=== PATIENT | male | born 1955 | race Caucasian/White ===

== ENCOUNTER 2022-11-14 07:42 | Emergency (ER) | payer MEDICARE, MEDICAID, SELFPAY ==
[2022-11-14 07:47] VITALS: BP 106/72; PULSE 76; RESP 18; TEMP 36.6; O2SAT 97; BMI 27.4
--- NOTE | 2022-11-14 07:49 | CT_ITS ---
The [address] [address] Patient Name: CHIDI TAYLOR MRN: [facility]:[id number] date: 1955 Sex: M Assigned Patient Location: ED.MAIN Current Patient Location: ED.MAIN Accession/Order Number: [id number] Exam Date: 11/14/2022 07:56 Report Date: 11/14/2022 08:22 At the request of: SAIRA CHAVEZ Procedure: CT head/brain wo con EXAM: CT head/brain wo con HISTORY: fall COMPARISON: CT head 07/13/2019. TECHNIQUE: Axial noncontrast CT imaging of the head was performed with coronal and sagittal reformats. FINDINGS: Motion artifact severely degrades evaluation of the skull base. Calvarium/skull base: No evidence of acute fracture or destructive lesion. Mastoids and middle ears demonstrate no substantial mucosal disease. Paranasal sinuses: No air fluid levels. Brain: No acute intracranial hemorrhage. No acute large vascular territory infarct. 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 There is ex vacuo dilatation of the right lateral ventricle with relative paucity of white matter involving the high right hemisphere. Stable morphologic appearance of the brain parenchyma and ventricles compared to 07/13/2019. Extensive eccentric right dural calcifications along the falx and to lesser extent tentorial leaflet. No mass lesion or mass effect. No hydrocephalus. CT/CT head/brain wo con IMPRESSION: No acute large vascular territory infarct or acute intracranial hemorrhage. Electronically authenticated by: MONA MOORE Date: 11/14/2022 08:22
--- NOTE | 2022-11-14 07:50 | ED.HEATRA1 ---
HPI - Head Injury General Chief complaint: Head Injury Stated complaint: FALL Time Seen by Provider: 11/14/22 07:45 History of Present Illness HPI Narrative: 67-year-old male presents from prison for laceration above his left eye. He was in a wheelchair and was restrained in it and he fell forward hitting his head. No other injury. Caregiver is with him and reports that he is acting normally. This happened just before coming into the emergency department. The patient due to medical issues is unable to provide us any history. Related Data Home Medications Medication Instructions Recorded Confirmed DIAZEPAM GEL 20 mg miscellaneous .EVERY 15 MIN 11/14/22 11/14/22 PRN seizure activity acetaminophen 325 mg capsule 650 mg PO Q4H PRN fever or pain 11/14/22 11/14/22 calcium carbonate 200 mg calcium 500 mg PO BID 11/14/22 11/14/22 (500 mg) chewable tablet (Antacid (calcium carbonate)) carbamide peroxide 6.5 % ear drops 4 drp otic (ear) DAILY 11/14/22 11/14/22 (Debrox) cholecalciferol (vitamin D3) 10 1,000 unit PO DAILY 11/14/22 11/14/22 mcg (400 unit) capsule finasteride 5 mg tablet 5 mg PO BEDTIME 11/14/22 11/14/22 hydroxyzine HCl 25 mg tablet 25 mg PO BID PRN itching 11/14/22 11/14/22 lacosamide 150 mg tablet 150 mg PO BID 11/14/22 11/14/22 lamotrigine 200 mg tablet 400 mg PO .MORNING 11/14/22 11/14/22 lamotrigine 200 mg tablet 600 mg PO BEDTIME 11/14/22 11/14/22 (Lamictal) latanoprost 0.005 % eye drops, 1 drp ophthalmic (eye) DAILY 11/14/22 11/14/22 emulsion levetiracetam 1,000 mg tablet 1,500 mg PO .MORNING 11/14/22 11/14/22 (Keppra) levetiracetam 1,000 mg tablet 2,000 mg PO BEDTIME 11/14/22 11/14/22 (Keppra) lorazepam 0.5 mg tablet 0.5 mg PO Q8H PRN anxiety 11/14/22 11/14/22 meclizine 25 mg tablet 25 mg PO TID PRN dizziness 11/14/22 11/14/22 melatonin 3 mg capsule 3 mg PO DAILY PRN sleep 11/14/22 11/14/22 ondansetron HCl 4 mg tablet 4 mg PO Q6H PRN nausea and vomiting 11/14/22 11/14/22 oxybutynin chloride 10 mg 10 mg PO DAILY 11/14/22 11/14/22 tablet,extended release 24 hr pantoprazole 40 mg tablet,delayed 40 mg PO DAILY 11/14/22 11/14/22 release (Protonix) polyethylene glycol 3350 17 gram 17 g PO DAILY 11/14/22 11/14/22 oral powder packet (Miralax) primidone 250 mg tablet 375 mg PO BEDTIME 11/14/22 11/14/22 primidone 50 mg tablet 250 mg PO QDAY 11/14/22 11/14/22 sennosides 8.6 mg capsule (senna) 8.6 mg PO BID 11/14/22 11/14/22 tamsulosin 0.4 mg capsule (Flomax) 0.4 mg PO DAILY 11/14/22 11/14/22 trazodone 50 mg tablet 50 mg PO DAILY 11/14/22 11/14/22 Allergies Allergy/AdvReac Type Severity Reaction Status Date / Time clindamycin Allergy Unknown Verified 11/14/22 07:52 Penicillins Allergy Unknown Verified 11/14/22 07:52 Review of Systems ROS Narrative not obtainable, psychiatric issues Exam Narrative Exam Narrative: Nurses note and vital signs reviewed and patient is not hypoxic. General: The patient appears in no apparent distress. Patient is resting comfortably on cart. circumferential head bandage present. Skin: Warm, dry, no pallor noted. There is no rash noted. Head: Normocephalic, transversely oriented 2 cm laceration present just below the left eyebrow Eye: Normal conjunctiva, no drainage, EOMI. PERRL Ears, Nose, Mouth, and Throat: oral mucosa is moist. Nares patent. Cardiovascular: Regular Rate and Rhythm Respiratory: Patient is in no distress, no accessory muscle use, lungs are clear to auscultation, no wheezing, rales or rhonchi Back: non-tender, C-spine nontender GI: nontender Musculoskeletal: The patient has no evidence of calf tenderness, no pitting edema, symmetrical pulses noted bilaterally Neurological: he is at his neurologic baseline according to caregiver. He's saying some words but is baseline not oriented. Psychiatric: not uncooperative Constitutional Vital Signs, click to edit/add: Last Vital Signs Temp 97.8 F 11/14/22 07:47 Pulse 76 11/14/22 07:47 Resp 18 11/14/22 07:47 BP 106/72 11/14/22 07:47 Pulse Ox 97 11/14/22 07:47 O2 Del Method Room Air 11/14/22 07:47 Course Vital Signs Vital signs: Vital Signs Temperature 97.8 F 11/14/22 07:47 Pulse Rate 76 11/14/22 07:47 Respiratory Rate 18 11/14/22 07:47 Blood Pressure 106/72 11/14/22 07:47 Pulse Oximetry 97 11/14/22 07:47 Oxygen Delivery Method Room Air 11/14/22 07:47 Temperature 97.8 F 11/14/22 07:47 Pulse Rate 76 11/14/22 07:47 Respiratory Rate 18 11/14/22 07:47 Blood Pressure 106/72 11/14/22 07:47 Pulse Oximetry 97 11/14/22 07:47 Oxygen Delivery Method Room Air 11/14/22 07:47 MDM - Head Injury MDM Narrative Medical decision making narrative: CT is negative. Wound repaired. Sutures to be removed in 5-7 days. Tetanus status addressed. Findings are discussed with his caregiver. Differential Diagnosis Differential diagnosis: Likely epidural hematoma, closed head injury, subarachnoid hematoma and subdural hematoma Imaging Data CT scan - head: Radiologist's impression: Procedure: CT head/brain wo con EXAM: CT head/brain wo con HISTORY: fall COMPARISON: CT head 07/13/2019. TECHNIQUE: Axial noncontrast CT imaging of the head was performed with coronal and sagittal reformats. FINDINGS: Motion artifact severely degrades evaluation of the skull base. Calvarium/skull base: No evidence of acute fracture or destructive lesion. Mastoids and middle ears demonstrate no substantial mucosal disease. Paranasal sinuses: No air fluid levels. Brain: No acute intracranial hemorrhage. No acute large vascular territory infarct. 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 There is ex vacuo dilatation of the right lateral ventricle with relative paucity of white matter involving the high right hemisphere. Stable morphologic appearance of the brain parenchyma and ventricles compared to 07/13/2019. Extensive eccentric right dural calcifications along the falx and to lesser extent tentorial leaflet. No mass lesion or mass effect. No hydrocephalus. IMPRESSION: No acute large vascular territory infarct or acute intracranial hemorrhage. Electronically authenticated by: MONA MOORE Date: 11/14/2022 08:22 Discharge Plan Discharge Chief Complaint: Head Injury Clinical Impression: Facial laceration Patient Disposition: [facility] Time of Disposition Decision: 09:14 Condition: Good Mode of Transportation: EMS Instructions: Laceration (ED) Additional Instructions: sutures to be removed in 5-7 days Stand Alone Forms: Portal Instructions Referrals: Carson Matamoros MD [Primary Care Provider] - 1 week Procedures ED Procedure Instructions Procedures Procedures: the following procedure was performed by me. Local infiltration was carried out with one percent lidocaine without epinephrine resulting in complete skin anesthesia. The area was prepped with Betadine ?3 and draped sterilely. It was explored for foreign bodies in them were found and the wound was then closed with three 6-0 Ethilon sutures resulting in good skin reapproximation and no complications. He tolerated the procedure well.
[2022-11-14] MEDS: ADACEL DIPH,PERTUSS(ACELL),TET VAC/PF 0.5 ML ADULT SYRINGE IM (09:22)
== END 2022-11-14 10:10 ==
PROVIDERS: Emergency Provider Emergency Medicine; PCP Family Medicine
DX: S01.81XA Laceration without foreign body of other part of head, initial encounter (principal); Z23 Encounter for immunization; Z79.899 Other long term (current) drug therapy; W19.XXXA Unspecified fall, initial encounter
CPT/HCPCS: 12011; 70450; 90471; 90715; 99284

== ENCOUNTER 2023-02-09 19:42 | Emergency (ER) | payer MEDICARE, MEDICAID, SELFPAY ==
[2023-02-09] VITALS (26 sets, daily range): BP systolic 123–124; BP diastolic 78–82; PULSE 85–107; RESP 18–37; TEMP 36.4; O2SAT 88–96
--- NOTE | 2023-02-09 19:46 | XR_ITS ---
The [address] [address] Patient Name: CHIDI TAYLOR MRN: [id number] date: 1955 Sex: M Assigned Patient Location: ER Current Patient Location: ER Accession/Order Number: [id number] Exam Date: 02/09/2023 21:50 Report Date: 02/09/2023 22:30 At the request of: CARLOS WOODWARD Procedure: XR chest 1V EXAM: XR chest 1V HISTORY: Aspiration COMPARISON: Chest x-ray 06/11/2021 TECHNIQUE: Single AP radiograph of the chest FINDINGS: Low lung volumes. No pneumothorax or pleural effusion. No consolidation. Normal heart size. No acute osseous abnormality. Left vagal nerve stimulator device projecting over left chest wall. The gastric bubble is prominent. XR/XR chest 1V IMPRESSION: Low lung volumes without acute cardiopulmonary process. Prominent gastric bubble containing debris. Electronically authenticated by: NILA ALEXANDRE Date: 02/09/2023 22:30
--- NOTE | 2023-02-09 19:46 | ECG_ITS ---
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
--- NOTE | 2023-02-09 19:48 | ED_ITS ---
Documented by User: DEXTER Moise 02/09/23 21:27 HPI - General Adult General Chief complaint: Nausea/Vomiting/Diarrhea Stated complaint: vomiting Time Seen by Provider: 02/09/23 19:46 History of Present Illness HPI narrative: Patient is a 68-year-old male with a history of developmental delay, seizure disorder who presents to the emergency department by ambulance from the [facility] where he is a resident for the evaluation of multiple episodes of emesis that began after he ate dinner this evening. Staff at the [facility] report that the patient had 4 episodes of emesis and filled 2 garbage bags . He apparently has a history of small bowel obstruction. He has large surgical incisions over the abdomen from previous small bowel surgery. EMS gave intramuscular Zofran prior to arrival, he had 1 episode of emesis for EMS. He arrives to the ER with no medical complaints. He has a bicycle helmet on which he apparently is supposed to wear at all times while awake. Related Data Home Medications Medication Instructions Recorded Confirmed calcium carbonate 200 mg calcium 500 mg PO BID 11/14/22 02/09/23 (500 mg) chewable tablet (Antacid (calcium carbonate)) carbamide peroxide 6.5 % ear drops 4 drp otic (ear) .monthly 11/14/22 02/09/23 (Debrox) cholecalciferol (vitamin D3) 10 1,000 unit PO DAILY 11/14/22 02/09/23 mcg (400 unit) capsule finasteride 5 mg tablet 5 mg PO BEDTIME 11/14/22 02/09/23 lacosamide 150 mg tablet 150 mg PO BID 11/14/22 02/09/23 lamotrigine 200 mg tablet 400 mg PO .MORNING 11/14/22 02/09/23 lamotrigine 200 mg tablet 600 mg PO BEDTIME 11/14/22 02/09/23 (Lamictal) latanoprost 0.005 % eye drops, 1 drp ophthalmic (eye) DAILY 11/14/22 02/09/23 emulsion levetiracetam 1,000 mg tablet 1,500 mg PO .MORNING 11/14/22 02/09/23 (Keppra) levetiracetam 1,000 mg tablet 2,000 mg PO BEDTIME 11/14/22 02/09/23 (Keppra) oxybutynin chloride 10 mg 10 mg PO DAILY 11/14/22 02/09/23 tablet,extended release 24 hr pantoprazole 40 mg tablet,delayed 40 mg PO DAILY 11/14/22 02/09/23 release (Protonix) polyethylene glycol 3350 17 gram 17 g PO DAILY 11/14/22 02/09/23 oral powder packet (Miralax) primidone 250 mg tablet 375 mg PO BEDTIME 11/14/22 02/09/23 primidone 50 mg tablet 250 mg PO QDAY 11/14/22 02/09/23 sennosides 8.6 mg capsule (senna) 8.6 mg PO BID 11/14/22 02/09/23 tamsulosin 0.4 mg capsule (Flomax) 0.4 mg PO BID 11/14/22 02/09/23 trazodone 50 mg tablet 50 mg PO DAILY 11/14/22 02/09/23 hydrocortisone 2.5 % topical cream 1 applic topical BID 02/09/23 02/09/23 Allergies Allergy/AdvReac Type Severity Reaction Status Date / Time clindamycin Allergy Unknown Verified 11/14/22 07:52 Penicillins Allergy Unknown Verified 11/14/22 07:52 Review of Systems ROS Constitutional Denies: fever or chills Ears, nose, mouth, and throat Denies: throat pain Cardiovascular Denies: chest pain Respiratory Denies: shortness of breath Gastrointestinal Reports: nausea and vomiting; Denies: abdominal pain or diarrhea Genitourinary Denies: painful urination Musculoskeletal Denies: back pain Integumentary/Breast Denies: rash Neurological Denies: headache PFSH PFSH Social History Smoking status: Never smoker Exam Narrative Exam Narrative: Gen.: Awake, alert, in no distress Head: Normocephalic, atraumatic ENT: Moist mucous membranes Respiratory: No respiratory distress, lungs clear bilaterally Cardio: Regular rate and rhythm Gastrointestinal: Abdomen is soft, nondistended and nontender to palpation; well-healed surgical incisions over the anterior abdomen Extremities: Moves extremities equally Psych: Flat affect Neuro: Developmentally delayed Skin: Warm, dry, intact Constitutional Vital Signs, click to edit/add: Last Vital Signs Temp 97.6 F 02/09/23 19:45 Pulse 103 H 02/09/23 23:14 Resp 35 H 02/09/23 23:14 BP 123/78 02/09/23 23:14 Pulse Ox 95 02/09/23 23:26 O2 Del Method Room Air 02/09/23 21:45 Course Vital Signs Vital signs: Vital Signs Temperature 97.6 F 02/09/23 19:45 Pulse Rate 93 H 02/09/23 19:45 Respiratory Rate 20 02/09/23 19:45 Blood Pressure 124/82 02/09/23 19:45 Pulse Oximetry 95 02/09/23 19:45 Oxygen Delivery Method Room Air 02/09/23 19:45 Temperature 97.6 F 02/09/23 19:45 Pulse Rate 103 H 02/09/23 23:14 Respiratory Rate 35 H 02/09/23 23:14 Blood Pressure 123/78 02/09/23 23:14 Pulse Oximetry 95 02/09/23 23:26 Oxygen Delivery Method Room Air 02/09/23 21:45 Medical Decision Making MDM Narrative Medical decision making narrative: 2129: Patient with no complaints of pain and stable vital signs in the ER. He was given IV fluids and an additional 4 mg IV Zofran. Lab studies are stable, urine specimen is pending. Patient will be sent for CT of the abdomen and pelvis and chest x-ray. He is resting comfortably in the ER. Case is turned over to attending physician for disposition. Medical Records Medical records reviewed: Yes I reviewed the patient's medical records Lab Data Lab results reviewed: Yes I reviewed the patient's lab results Labs: Lab Results 02/09/23 Range/Units 20:20 WBC 11.8 H (4.0-11.0) 10^3/uL RBC 3.66 L (4.70-6.10) 10^6/uL Hgb 12.0 L (14.0-18.0) g/dL Hct 37.0 L (42.0-54.0) % MCV 101.1 H (80.0-94.0) fL MCH 32.8 (25.9-34.0) pg MCHC 32.4 (29.9-35.2) g/dL RDW 12.8 (11.0-15.0) % Plt Count 207 (150-450) 10^3/uL MPV 9.5 (9.5-13.5) fL Neut % (Auto) 86.7 H (43.0-75.0) % Lymph % (Auto) 7.6 L (20.5-60.0) % [place] % (Auto) 5.0 (1.7-12.0) % Eos % (Auto) 0.1 L (0.9-7.0) % Baso % (Auto) 0.3 (0.2-2.0) % Neut # (Auto) 10.2 H (1.4-6.5) 10^3/uL Lymph # (Auto) 0.9 L (1.2-3.8) 10^3/uL [place] # (Auto) 0.6 (0.3-0.8) 10^3/uL Eos # (Auto) 0.0 (0.0-0.7) 10^3/uL Baso # (Auto) 0.0 (0.0-0.1) 10^3/uL Abs Immat Gran (auto) 0.04 H (0.00-0.03) 10^3/uL Imm/Tot Granulo (auto) 0.3 (0.0-0.5) % PT 10.9 (9.0-11.6) sec INR 1.03 Sodium 140 (136-145) mmol/L Potassium 4.0 (3.5-5.1) mmol/L Chloride 100 (98-107) mmol/L Carbon Dioxide 31.6 (21.0-32.0) mmol/L Anion Gap 12.4 BUN 22.0 H (7.0-18.0) mg/dL Creatinine 1.11 (0.70-1.30) mg/dL Est GFR ( Amer) >60 (>=60) Est GFR (Non-Af Amer) >60 (>=60) BUN/Creatinine Ratio 19.8 Glucose 108 H (74-106) mg/dL Lactate 1.1 (0.4-2.0) mmol/L Calcium 9.4 (8.5-10.1) mg/dL Total Bilirubin 0.4 (0.2-1.0) mg/dL AST 6 L (15-37) U/L ALT 19 (16-63) U/L Alkaline Phosphatase 135 H (46-116) U/L Troponin I High Sens 7.0 (4.0-76.1) pg/mL Total Protein 7.7 (6.4-8.2) g/dL Albumin 3.9 (3.4-5.0) g/dL Globulin 3.8 g/dL Albumin/Globulin Ratio 1.0 TSH 2.151 (0.358-3.740) uIU/mL ECG Data Attestation: I personally reviewed and interpreted this ECG as follows: (Normal sinus rhythm at a rate of 92, no acute ST elevation or ectopy. EKG reviewed by physician) Discharge Plan Discharge Chief Complaint: Nausea/Vomiting/Diarrhea Clinical Impression: Nausea & vomiting, Small bowel obstruction Patient Disposition: [facility] Discharge Location: [facility] Documented by User: Severiano Azevedo MD 02/10/23 02:11 HPI - General Adult General Chief complaint: Nausea/Vomiting/Diarrhea Stated complaint: vomiting Time Seen by Provider: 02/09/23 19:46 Related Data Home Medications Medication Instructions Recorded Confirmed calcium carbonate 200 mg calcium 500 mg PO BID 11/14/22 02/09/23 (500 mg) chewable tablet (Antacid (calcium carbonate)) carbamide peroxide 6.5 % ear drops 4 drp otic (ear) .monthly 11/14/22 02/09/23 (Debrox) cholecalciferol (vitamin D3) 10 1,000 unit PO DAILY 11/14/22 02/09/23 mcg (400 unit) capsule finasteride 5 mg tablet 5 mg PO BEDTIME 11/14/22 02/09/23 lacosamide 150 mg tablet 150 mg PO BID 11/14/22 02/09/23 lamotrigine 200 mg tablet 400 mg PO .MORNING 11/14/22 02/09/23 lamotrigine 200 mg tablet 600 mg PO BEDTIME 11/14/22 02/09/23 (Lamictal) latanoprost 0.005 % eye drops, 1 drp ophthalmic (eye) DAILY 11/14/22 02/09/23 emulsion levetiracetam 1,000 mg tablet 1,500 mg PO .MORNING 11/14/22 02/09/23 (Keppra) levetiracetam 1,000 mg tablet 2,000 mg PO BEDTIME 11/14/22 02/09/23 (Keppra) oxybutynin chloride 10 mg 10 mg PO DAILY 11/14/22 02/09/23 tablet,extended release 24 hr pantoprazole 40 mg tablet,delayed 40 mg PO DAILY 11/14/22 02/09/23 release (Protonix) polyethylene glycol 3350 17 gram 17 g PO DAILY 11/14/22 02/09/23 oral powder packet (Miralax) primidone 250 mg tablet 375 mg PO BEDTIME 11/14/22 02/09/23 primidone 50 mg tablet 250 mg PO QDAY 11/14/22 02/09/23 sennosides 8.6 mg capsule (senna) 8.6 mg PO BID 11/14/22 02/09/23 tamsulosin 0.4 mg capsule (Flomax) 0.4 mg PO BID 11/14/22 02/09/23 trazodone 50 mg tablet 50 mg PO DAILY 11/14/22 02/09/23 hydrocortisone 2.5 % topical cream 1 applic topical BID 02/09/23 02/09/23 Allergies Allergy/AdvReac Type Severity Reaction Status Date / Time clindamycin Allergy Unknown Verified 11/14/22 07:52 Penicillins Allergy Unknown Verified 11/14/22 07:52 PFSH PFS Social History Smoking status: Never smoker Exam Constitutional Vital Signs, click to edit/add: Last Vital Signs Temp 97.6 F 02/09/23 19:45 Pulse 103 H 02/09/23 23:14 Resp 35 H 02/09/23 23:14 BP 123/78 02/09/23 23:14 Pulse Ox 95 02/09/23 23:26 O2 Del Method Room Air 02/09/23 21:45 Course Vital Signs Vital signs: Vital Signs Temperature 97.6 F 02/09/23 19:45 Pulse Rate 93 H 02/09/23 19:45 Respiratory Rate 20 02/09/23 19:45 Blood Pressure 124/82 12/08/23 19:45 Pulse Oximetry 95 02/09/23 19:45 Oxygen Delivery Method Room Air 02/09/23 19:45 Temperature 97.6 F 02/09/23 19:45 Pulse Rate 103 H 02/09/23 23:14 Respiratory Rate 35 H 02/09/23 23:14 Blood Pressure 123/78 02/09/23 23:14 Pulse Oximetry 95 02/09/23 23:26 Oxygen Delivery Method Room Air 02/09/23 21:45 Medical Decision Making MDM Narrative Medical decision making narrative: 2129: Patient with no complaints of pain and stable vital signs in the ER. He was given IV fluids and an additional 4 mg IV Zofran. Lab studies are stable, urine specimen is pending. Patient will be sent for CT of the abdomen and pelvis and chest x-ray. He is resting comfortably in the ER. Case is turned over to attending physician for disposition. CT returned with findings of SBO. Discussed with controller instructor Surgeon Dr Dawn. States he is only controller instructor for the next 8 hours and will not be around tomorrow to see the patient. Suggested I have the patient transferred. Discussed with Surgeon controller instructor at [facility] and patient was accepted in transfer but he wanted me to discuss with the Hospitalist who would be the admitting physician Hospitalist from [facility] called back and would not accept the patient. States his surgeon is a [place] surgeon and he doesn't feel comfortable accepting the patient. we then contacted [facility] and discussed case with controller instructor Surgeon and ER physician and patient accepted in transfer Lab Data Labs: Lab Results 02/09/23 Range/Units 20:20 WBC 11.8 H (4.0-11.0) 10^3/uL RBC 3.66 L (4.70-6.10) 10^6/uL Hgb 12.0 L (14.0-18.0) g/dL Hct 37.0 L (42.0-54.0) % MCV 101.1 H (80.0-94.0) fL MCH 32.8 (25.9-34.0) pg MCHC 32.4 (29.9-35.2) g/dL RDW 12.8 (11.0-15.0) % Plt Count 207 (150-450) 10^3/uL MPV 9.5 (9.5-13.5) fL Neut % (Auto) 86.7 H (43.0-75.0) % Lymph % (Auto) 7.6 L (20.5-60.0) % [place] % (Auto) 5.0 (1.7-12.0) % Eos % (Auto) 0.1 L (0.9-7.0) % Baso % (Auto) 0.3 (0.2-2.0) % Neut # (Auto) 10.2 H (1.4-6.5) 10^3/uL Lymph # (Auto) 0.9 L (1.2-3.8) 10^3/uL [place] # (Auto) 0.6 (0.3-0.8) 10^3/uL Eos # (Auto) 0.0 (0.0-0.7) 10^3/uL Baso # (Auto) 0.0 (0.0-0.1) 10^3/uL Abs Immat Gran (auto) 0.04 H (0.00-0.03) 10^3/uL Imm/Tot Granulo (auto) 0.3 (0.0-0.5) % PT 10.9 (9.0-11.6) sec INR 1.03 Sodium 140 (136-145) mmol/L Potassium 4.0 (3.5-5.1) mmol/L Chloride 100 (98-107) mmol/L Carbon Dioxide 31.6 (21.0-32.0) mmol/L Anion Gap 12.4 BUN 22.0 H (7.0-18.0) mg/dL Creatinine 1.11 (0.70-1.30) mg/dL Est GFR ( Amer) >60 (>=60) Est GFR (Non-Af Amer) >60 (>=60) BUN/Creatinine Ratio 19.8 Glucose 108 H (74-106) mg/dL Lactate 1.1 (0.4-2.0) mmol/L Calcium 9.4 (8.5-10.1) mg/dL Total Bilirubin 0.4 (0.2-1.0) mg/dL AST 6 L (15-37) U/L ALT 19 (16-63) U/L Alkaline Phosphatase 135 H (46-116) U/L Troponin I High Sens 7.0 (4.0-76.1) pg/mL Total Protein 7.7 (6.4-8.2) g/dL Albumin 3.9 (3.4-5.0) g/dL Globulin 3.8 g/dL Albumin/Globulin Ratio 1.0 TSH 2.151 (0.358-3.740) uIU/mL Imaging Data CT scan - abdomen: Radiologist's impression: The [address] [address] Patient Name: CHIDI TAYLOR MRN: [facility]:[id number] date: 1955 Sex: M Assigned Patient Location: ER Current Patient Location: ER Accession/Order Number: [id number] Exam Date: 02/09/2023 21:50 Report Date: 02/09/2023 22:52 At the request of: CARLOS WOODWARD Procedure: CT abdomen pelvis w con EXAMINATION: CT abdomen pelvis w con HISTORY: Small bowel obstruction , aspiration, vomiting COMPARISON: CT abdomen pelvis 06/11/2021 TECHNIQUE: Axial, Coronal, and Sagittal images were obtained without and/or with IV contrast as indicated by examination type. Dose reduction techniques were achieved by using automated exposure control and/or adjustment of mA and/or kV according to patient size and/or use of iterative reconstruction technique. FINDINGS: LUNG BASES: Moderate atelectasis versus infiltrates within left lower lobe. LIVER: No enlargement, atrophy, suspicious density, or significant focal lesion. BILIARY: No dilatation or calcification. PANCREAS: No lesion, fluid collection, or abnormal duct dilatation. SPLEEN: No enlargement or focal lesion. ADRENALS: No mass or enlargement. KIDNEYS: Stable, old subcapsular fluid collection with rim calcifications involving left kidney; likely sequela of remote hematoma. Stable complex cyst within inferior pole of left kidney. Unremarkable right kidney and bilateral ureters. No mass, obstruction, or calcification. BOWEL/MESENTERY: Markedly distended stomach. Abnormally distended air and fluid-filled proximal small bowel up to 4.8 cm in diameter. Decreased caliber of small bowel distal to a small bowel-small bowel anastomosis within the lower left abdomen. Intermittent distended sections of small bowel distal to the anastomosis, with a few loops of completely collapsed small bowel within the right lower pelvis, but no definable transition point. No free air or free fluid. There is AORTA/VASCULAR: No aneurysm or dissection. RETROPERITONEUM: No mass or adenopathy. LYMPH NODES: No adenopathy. URINARY BLADDER: No visible focal wall thickening, lesion, or calculus. PELVIC ORGANS: No visible mass. Pelvic organs appropriate for patient age. ABDOMINAL WALL: No mass or hernia. BONES: No bony lesion or fracture. Degenerative changes of lumbar spine. OTHER: Negative. CT/CT abdomen pelvis w con IMPRESSION: 1. Partial obstruction of the proximal small bowel which appears to occur at the site of prior anastomosis. There are a few abnormally distended segments of small bowel distal to this point, with a few completely collapsed loops of distal small bowel within the right pelvis which may indicate a more distal complete obstruction; no identifiable transition point. 2. Moderate atelectasis versus infiltrates within left lung lower lobe. 3. Stable left kidney subcapsular fluid collection; likely remote hematoma. Electronically authenticated by: ANICETO RODRIGUEZ Date: 02/09/2023 22:52 Dictated By: Aniceto Rodriguez M.D. Signed By: 02/09/23 2255 DD/ 2252 TD/TT: Discharge Plan Discharge Chief Complaint: Nausea/Vomiting/Diarrhea Clinical Impression: Nausea & vomiting, Small bowel obstruction Patient Disposition: [facility] Hospital Discharge Location: [facility]
[2023-02-09] MEDS: ONDANSETRON PF 4 MG/2 ML VIAL IV (20:27)
[2023-02-09] MEDS: 0.9 % SODIUM CHLORIDE 1,000 ML 999 ML IV (20:28)
[2023-02-09 20:45] LABS: Basophils Percent Auto 0.3 % (0.2-2.0); Eosinophils Percent Auto 0.1 % (0.9-7.0); Immature Granulocytes Abs Auto 0.04 10^3/uL (0.00-0.03); Immature Granulocytes Pct Auto 0.3 % (0.0-0.5); Lymphocytes Absolute Auto 0.9 10^3/uL (1.2-3.8); Lymphocytes Percent Auto 7.6 % (20.5-60.0); Mean Corpuscular HGB Conc 32.4 g/dL (29.9-35.2); Mean Corpuscular Hemoglobin 32.8 pg (25.9-34.0); Mean Corpuscular Volume 101.1 fL (80.0-94.0); Mean Platelet Volume 9.5 fL (9.5-13.5); Monocytes Absolute Auto 0.6 10^3/uL (0.3-0.8); Neutrophils Absolute Auto 10.2 10^3/uL (1.4-6.5); Neutrophils Percent Auto 86.7 % (43.0-75.0); Platelet Count 207 10^3/uL (150-450); Red Blood Count 3.66 10^6/uL (4.70-6.10); Red Cell Distribution Width 12.8 % (11.0-15.0); White Blood Count 11.8 10^3/uL (4.0-11.0)
[2023-02-09 21:07] LABS: INR 1.03; Prothrombin Time 10.9 sec (9.0-11.6)
[2023-02-09 21:12] LABS: Lactate/Lactic Acid 1.1 mmol/L (0.4-2.0)
[2023-02-09 21:18] LABS: Alanine Aminotransferase 19 U/L (16-63); Albumin Level 3.9 g/dL (3.4-5.0); Alkaline Phosphatase 135 U/L (46-116); Anion Gap 12.4; Aspartate Amino Transferase 6 U/L (15-37); BUN Creatinine Ratio 19.8; Bilirubin Total 0.4 mg/dL (0.2-1.0); Calcium 9.4 mg/dL (8.5-10.1); Carbon Dioxide 31.6 mmol/L (21.0-32.0); Chloride 100 mmol/L (98-107); Estimated GFR (African America >60 (>=60); Estimated GFR (Non-African Ame >60 (>=60); Globulin 3.8 g/dL; Glucose 108 mg/dL (74-106); Sodium 140 mmol/L (136-145); Thyroid Stimulating Hormone 2.151 uIU/mL (0.358-3.740); Total Protein 7.7 g/dL (6.4-8.2)
[2023-02-09] MEDS: METOCLOPRAMIDE HCL 10 MG/2 ML VIAL IVP (21:40)
[2023-02-09] MEDS: FAMOTIDINE/PF 20 MG/2 ML VIAL IV (21:43)
[2023-02-10] VITALS (21 sets, daily range): BP systolic 100; BP diastolic 67; PULSE 99–118; RESP 22–44; O2SAT 91–96
[2023-02-10] MEDS: DIAZEPAM 5 MG/ML - 2 ML INJ SYRINGE IV (00:38)
[2023-02-10] MEDS: MORPHINE SULFATE 4 MG/ML VIAL IV (01:34)
== END 2023-02-10 04:06 | disposition short-term general hospital (02) ==
PROVIDERS: Physician Assistant; Emergency Provider Internal Medicine; PCP Family Medicine
DX: K56.609 Unspecified intestinal obstruction, unspecified as to partial versus complete obstruction (principal); G40.909 Epilepsy, unspecified, not intractable, without status epilepticus; F89 Unspecified disorder of psychological development; Z79.899 Other long term (current) drug therapy
CPT/HCPCS: 36415; 71045; 74177; 80053; 83605; 84443; 84484; 85025; 85610; 93005; 96361; 96374; 96375; 99285; Q9967

== ENCOUNTER 2023-04-23 13:50 | Inpatient (IN) | payer MEDICARE, MEDICAID, SELFPAY ==
[2023-04-23] VITALS (35 sets, daily range): BP systolic 104–128; BP diastolic 62–88; PULSE 92–115; RESP 10–42; TEMP 36.8–37.2; O2SAT 94–100; BMI 23.5; BMI 24.9
--- NOTE | 2023-04-23 14:05 | CT_ITS ---
[facility] [address] [place], [place] [address] Patient Name: CHIDI TAYLOR MRN: [id number] date: 1955 Sex: M Assigned Patient Location: ER Current Patient Location: ER Accession/Order Number: [id number] Exam Date: 04/23/2023 15:50 Report Date: 04/23/2023 16:49 At the request of: CARLOS WOODWARD Procedure: CT abdomen pelvis w con EXAMINATION: CT abdomen pelvis w con, 04/23/2023 12:50 PM PST HISTORY: Hx SBO, Nausea and vomiting COMPARISON: 02/09/2023 TECHNIQUE: CT scan of the abdomen and pelvis was performed with IV contrast. CT dose reduction technique was used, including Automated Exposure Control. FINDINGS: Lung: No significant finding. Liver: No significant finding. Gallbladder: No significant finding. Spleen: No significant finding. Pancreas: No significant finding. Adrenal glands: No significant finding. Kidneys, ureters and bladder: Simple left renal cyst. Fluid collection with peripheral calcification and along the left renal cortex, lentiform appearance, unchanged. No hydronephrosis. Circumferential bladder wall thickening with urothelial enhancement. Bowel: Prominent gastric distention. There are multiple prominently dilated loops of small bowel. Small amount of free fluid surrounding distended small bowel loops in the left hemiabdomen, series 4 image 94. Distal loops of small bowel appear to be collapsed. Abrupt transition point is not definitively characterized. Distended loops of bowel are most prominent proximal to the small bowel anastomosis in the leftward abdomen. Anastomosis appears to be grossly patent however. Loops of bowel continue to be distended distal to this anastomosis. Peritoneum/retroperitoneum: As above. Lymph nodes: No significant finding. Vessels: No significant finding. Body wall: No significant finding. Reproductive: No significant finding. Bones: No significant finding. CT/CT abdomen pelvis w con IMPRESSION: Findings concerning for at least partial small bowel obstruction. Distended loops of small bowel are most prominent in the left hemiabdomen proximal to the small bowel anastomosis. The anastomosis appears to be grossly patent however. Small bowel loops are dilated distal to the anastomosis with collapse of distal small bowel, potentially additional site of obstruction. An abrupt distal transition point is not definitively characterized. Prominent gastric distention. Cystitis. Electronically authenticated by: BEATRICE LAW Date: 04/23/2023 16:49
--- NOTE | 2023-04-23 14:11 | ED_ITS ---
HPI - General Adult General Chief complaint: Nausea/Vomiting/Diarrhea Stated complaint: ABDOMINAL PAIN Time Seen by Provider: 04/23/23 14:03 Mode of arrival: ambulance History of Present Illness HPI narrative: Patient is a 77-year-old male with a history of developmental delay and history of small bowel obstruction who presents to the emergency department from the [facility] where he is a resident for the evaluation of nausea and vomiting today. The [facility] is concerned because the patient had a heart rate of 104. Patient denies any pain. He is noted at time of my evaluation to be actively sticking his finger down his throat to make himself vomit. He has not had any fevers. He has had diarrhea. No urinary symptoms.His most recent bowel obstruction was evaluated in [place], the [facility] report to our nursing staff was allegedly given that they were unhappy with the care he received in [facility] and they would like him to go to a different hospital.No testing or imaging was performed from the [facility]. No medications given prior to arrival. He did not have surgery for bowel obstruction on his most recent admission but has had surgery for bowel obstruction in the past. Related Data Home Medications Medication Instructions Recorded Confirmed lamotrigine 200 mg tablet 400 mg PO QAM 11/14/22 04/23/23 lamotrigine 200 mg tablet 600 mg PO BEDTIME 11/14/22 04/23/23 (Lamictal) latanoprost 0.005 % eye drops, 1 drp ophthalmic (eye) QPM 11/14/22 04/23/23 emulsion levetiracetam 1,000 mg tablet 1,500 mg PO .MORNING 11/14/22 04/23/23 (Keppra) levetiracetam 1,000 mg tablet 2,000 mg PO BEDTIME 11/14/22 04/23/23 (Keppra) oxybutynin chloride 10 mg 10 mg PO DAILY 11/14/22 04/23/23 tablet,extended release 24 hr pantoprazole 40 mg tablet,delayed 40 mg PO DAILY 11/14/22 04/23/23 release (Protonix) polyethylene glycol 3350 17 gram 17 g PO DAILY 11/14/22 04/23/23 oral powder packet (Miralax) primidone 250 mg tablet 375 mg PO BEDTIME 11/14/22 04/23/23 primidone 50 mg tablet 250 mg PO QDAY 11/14/22 04/23/23 sennosides 8.6 mg capsule (senna) 8.6 mg PO BID 11/14/22 04/23/23 tamsulosin 0.4 mg capsule (Flomax) 0.4 mg PO BID 11/14/22 04/23/23 Vitamin D 25 mcg PO DAILY 04/23/23 04/23/23 acetaminophen 500 mg capsule 500 mg PO Q6H PRN fever or pain 04/23/23 04/23/23 diazeoam gel 12.5 - 20 mg .Q15MIN PRN seizure 04/23/23 activity finasteride 5 mg tablet 5 mg PO DAILY 04/23/23 04/23/23 hydroxyzine HCl 25 mg tablet 25 mg PO BID PRN itching 04/23/23 04/23/23 lacosamide 150 mg tablet 150 mg PO BID 04/23/23 04/23/23 loperamide 2 mg tablet 2 mg PO BID PRN loose stool 04/23/23 04/23/23 lorazepam 0.5 mg tablet (Ativan) 0.5 mg PO Q8H PRN seizure activity 04/23/23 04/23/23 melatonin 3 mg capsule 3 mg PO QPM PRN sleep 04/23/23 04/23/23 ondansetron 4 mg disintegrating 4 mg PO Q6H PRN nausea and vomiting 04/23/23 04/23/23 tablet Allergies Allergy/AdvReac Type Severity Reaction Status Date / Time clindamycin Allergy Unknown Verified 11/14/22 07:52 Penicillins Allergy Unknown Verified 11/14/22 07:52 Review of Systems ROS Constitutional Denies: fever or chills Ears, nose, mouth, and throat Denies: throat pain or nasal congestion Cardiovascular Denies: chest pain Respiratory Denies: shortness of breath or cough Gastrointestinal Reports: nausea, vomiting and diarrhea; Denies: abdominal pain Musculoskeletal Denies: back pain or neck pain Integumentary/Breast Denies: rash Neurological Denies: headache Hematologic/Lymphatic Denies: easy bruising or easy bleeding PFSH PFSH Medical History (Updated 04/23/23 @ 18:12 by DEXTER Moise) Generalized intestinal dysmotility ?K59.89 - Other specified functional intestinal disorders (ICD-10) Hypokalemia ?E87.6 - Hypokalemia (ICD-10) Oropharyngeal dysphagia ?R13.12 - Dysphagia, oropharyngeal phase (ICD-10) Large bowel obstruction ?K56.609 - Unspecified intestinal obstruction, unspecified as to partial versus complete obstruction (ICD-10) Insomnia ?G47.00 - Insomnia, unspecified (ICD-10) Vitamin D deficiency ?E55.9 - Vitamin D deficiency, unspecified (ICD-10) Post-void dribbling ?N39.43 - Post-void dribbling (ICD-10) Nocturia ?R35.1 - Nocturia (ICD-10) Blepharitis ?H01.009 - Unspecified blepharitis unspecified eye, unspecified eyelid (ICD- 10) Blepharitis ?H01.009 - Unspecified blepharitis unspecified eye, unspecified eyelid (ICD- 10) Periorbital cellulitis ?L03.213 - Periorbital cellulitis (ICD-10) Hyperlipemia ?E78.5 - Hyperlipidemia, unspecified (ICD-10) BPH w urinary obs/LUTS ?N40.1 - Benign prostatic hyperplasia with lower urinary tract symptoms (ICD- 10) ?N13.8 - Other obstructive and reflux uropathy (ICD-10) Hernia ?K46.9 - Unspecified abdominal hernia without obstruction or gangrene (ICD- 10) Glaucoma ?H40.9 - Unspecified glaucoma (ICD-10) Cystocele Eczema ?L30.9 - Dermatitis, unspecified (ICD-10) Osteoarthritis ?M19.90 - Unspecified osteoarthritis, unspecified site (ICD-10) Hearing loss ?H91.90 - Unspecified hearing loss, unspecified ear (ICD-10) Social History Smoking status: Never smoker Exam Narrative Exam Narrative: Gen.: Awake, alert, in no distress; Patient sitting comfortably, noted to stick his finger down his throat multiple times during initial interview with orange juice emesis Head: Normocephalic, atraumatic ENT: Moist mucous membranes Respiratory: No respiratory distress, lungs clear bilaterally Cardio: Regular rate and rhythm Gastrointestinal: Abdomen is firm, mildly distended but not rigid with well- healed surgical incision over the midline anterior abdomen Extremities: Moves extremities equally Psych: Normal mood and affect Neuro: No focal neuro deficit Skin: Warm, dry, intact Constitutional Vital Signs, click to edit/add: Last Vital Signs Temp 98.2 F 04/23/23 13:54 Pulse 110 H 04/23/23 19:01 Resp 37 H 04/23/23 18:00 BP 117/76 04/23/23 19:01 Pulse Ox 100 04/23/23 19:01 O2 Del Method Room Air 04/23/23 13:54 Course Vital Signs Vital signs: Vital Signs Temperature 98.2 F 04/23/23 13:54 Pulse Rate 109 H 04/23/23 13:54 Respiratory Rate 24 04/23/23 13:54 Blood Pressure 108/75 04/23/23 13:54 Pulse Oximetry 96 04/23/23 13:54 Oxygen Delivery Method Room Air 04/23/23 13:54 Temperature 98.2 F 04/23/23 13:54 Pulse Rate 110 H 04/23/23 19:01 Respiratory Rate 37 H 04/23/23 18:00 Blood Pressure 117/76 04/23/23 19:01 Pulse Oximetry 100 04/23/23 19:01 Oxygen Delivery Method Room Air 04/23/23 13:54 Medical Decision Making MDM Narrative Medical decision making narrative: Patient was treated with IV fluids, we had significant difficulty establishing an IV and multiple attempts were made. There was significant delay in obtaining his labs. Sepsis labs were ordered for the patient and blood cultures are pending. He maintained stable vital signs in the ER although he did continue to vomit. CT of the abdomen and pelvis with IV contrast shows the patient has a small bowel obstruction. Suspected to be at the previous bowel anastomosis. I discussed the case with our general surgeon, Dr. Loza, Who does not feel the patient can stay at this facility and requires a higher level of care. I discussed this with the patient's sister who is his POA, Pat and she requested that the patient be sent to [facility] where he has been seen in the past. Of note the patient was transferred to [facility] in February from this facility and most recently was transferred from [place] emergency department at the beginning of this month to [facility] where he was discharged 3 days ago. Patient's sister states that the NG tube was pulled just several days ago. NG tube was placed after multiple attempts, I updated the patient's power of civil rights attorney, Pat over the phone to treatment plan. The patient was not able to be transferred to [facility] as the general surgeon on-call at their facility is the same as on-call at our facility. Patient's sister request he be transferred back to [facility] where he has been seen in the past. [facility] is on an extended bed wait and patient is transferred to [facility], accepted by hospitalist, Chiara MARRERO for Dr. Kinsey. Transfer line did paged the general surgeon on-call, we did not receive a call back prior to this patient being accepted by the hospitalist. Stable at time of transfer. Patient was to be transferred to the emergency department at [facility] of a bed was not available by the time she was to be transported, we received a call from the transfer line stating that the patient could no longer be transferred without a bed assignment due to bed availability. Apparently the emergency department is also at capacity. We were required to delay transfer until a bed is available. This may not be this evening, patient is accepted to the hospitalist for observation until a bed is available at tertiary care where he can be definitively managed by general surgery. Medical Records Medical records reviewed: Yes I reviewed the patient's medical records Lab Data Lab results reviewed: Yes I reviewed the patient's lab results Labs: Lab Results 04/23/23 Range/Units 15:02 WBC 19.4 H (4.0-11.0) 10^3/uL RBC 3.92 L (4.70-6.10) 10^6/uL Hgb 13.0 L (14.0-18.0) g/dL Hct 41.0 L (42.0-54.0) % MCV 104.6 H (80.0-94.0) fL MCH 33.2 (25.9-34.0) pg MCHC 31.7 (29.9-35.2) g/dL RDW 13.6 (11.0-15.0) % Plt Count 449 (150-450) 10^3/uL MPV 8.6 L (9.5-13.5) fL Neut % (Auto) 84.6 H (43.0-75.0) % Lymph % (Auto) 6.9 L (20.5-60.0) % Tate % (Auto) 6.8 (1.7-12.0) % Eos % (Auto) 0.7 L (0.9-7.0) % Baso % (Auto) 0.4 (0.2-2.0) % Neut # (Auto) 16.4 H (1.4-6.5) 10^3/uL Lymph # (Auto) 1.3 (1.2-3.8) 10^3/uL Tate # (Auto) 1.3 H (0.3-0.8) 10^3/uL Eos # (Auto) 0.1 (0.0-0.7) 10^3/uL Baso # (Auto) 0.1 (0.0-0.1) 10^3/uL Abs Immat Gran (auto) 0.12 H (0.00-0.03) 10^3/uL Imm/Tot Granulo (auto) 0.6 H (0.0-0.5) % Sodium 143 (136-145) mmol/L Potassium 4.4 (3.5-5.1) mmol/L Chloride 105 (98-107) mmol/L Carbon Dioxide 23.6 (21.0-32.0) mmol/L Anion Gap 18.8 BUN 28.0 H (7.0-18.0) mg/dL Creatinine 1.58 H (0.70-1.30) mg/dL Est GFR ( Amer) 53 L (>=60) Est GFR (Non-Af Amer) 44 L (>=60) BUN/Creatinine Ratio 17.7 Glucose 121 H (74-106) mg/dL Lactate 3.0 H* (0.4-2.0) mmol/L Calcium 10.3 H (8.5-10.1) mg/dL Total Bilirubin 0.2 (0.2-1.0) mg/dL AST 20 (15-37) U/L ALT 43 (16-63) U/L Alkaline Phosphatase 151 H (46-116) U/L Troponin I High Sens <4.0 L (4.0-76.1) pg/mL Total Protein 9.2 H (6.4-8.2) g/dL Albumin 3.9 (3.4-5.0) g/dL Globulin 5.3 g/dL Albumin/Globulin Ratio 0.7 Lipase 61.0 (16.0-77.0) U/L Procalcitonin <0.05 (0.00-0.50) ng/mL Imaging Data CT scan - abdomen: Radiologist's impression: ITS Impressions Abdomen/Pelvis CT 04/23/23 14:05 IMPRESSION: Findings concerning for at least partial small bowel obstruction. Distended loops of small bowel are most prominent in the left hemiabdomen proximal to the small bowel anastomosis. The anastomosis appears to be grossly patent however. Small bowel loops are dilated distal to the anastomosis with collapse of distal small bowel, potentially additional site of obstruction. An abrupt distal transition point is not definitively characterized. Prominent gastric distention. Cystitis. Electronically authenticated by: BEATRICE LAW Date: 04/23/2023 16:49 ECG Data Attestation: I personally reviewed and interpreted this ECG as follows: (Sinus tachycardia at a rate of 110, no acute ST elevation or ectopy. EKG reviewed by attending physician) Critical Care Time Critical Care Time Critical Care Time: Yes Total Critical Care Time: 35 Attestation: Critical care time 35 minutes for care Discharge Plan Discharge Chief Complaint: Nausea/Vomiting/Diarrhea Clinical Impression: Small bowel obstruction, Nausea & vomiting Patient Disposition: [facility] Time of Disposition Decision: 18:08 Discharge location: [facility] Condition: Good Mode of Transportation: EMS
[2023-04-23] MEDS: 0.9 % SODIUM CHLORIDE 1,000 ML 999 ML IV (15:10)
[2023-04-23] MEDS: ONDANSETRON PF 4 MG/2 ML VIAL IV (15:10)
[2023-04-23 15:13] LABS: Basophils Absolute Auto 0.1 10^3/uL (0.0-0.1); Basophils Percent Auto 0.4 % (0.2-2.0); Eosinophils Absolute Auto 0.1 10^3/uL (0.0-0.7); Eosinophils Percent Auto 0.7 % (0.9-7.0); Immature Granulocytes Abs Auto 0.12 10^3/uL (0.00-0.03); Immature Granulocytes Pct Auto 0.6 % (0.0-0.5); Lymphocytes Absolute Auto 1.3 10^3/uL (1.2-3.8); Lymphocytes Percent Auto 6.9 % (20.5-60.0); Mean Corpuscular HGB Conc 31.7 g/dL (29.9-35.2); Mean Corpuscular Hemoglobin 33.2 pg (25.9-34.0); Mean Corpuscular Volume 104.6 fL (80.0-94.0); Mean Platelet Volume 8.6 fL (9.5-13.5); Monocytes Absolute Auto 1.3 10^3/uL (0.3-0.8); Monocytes Percent Auto 6.8 % (1.7-12.0); Neutrophils Absolute Auto 16.4 10^3/uL (1.4-6.5); Neutrophils Percent Auto 84.6 % (43.0-75.0); Platelet Count 449 10^3/uL (150-450); Red Blood Count 3.92 10^6/uL (4.70-6.10); Red Cell Distribution Width 13.6 % (11.0-15.0); White Blood Count 19.4 10^3/uL (4.0-11.0)
[2023-04-23 15:33] LABS: Alanine Aminotransferase 43 U/L (16-63); Albumin Globulin Ratio 0.7; Albumin Level 3.9 g/dL (3.4-5.0); Alkaline Phosphatase 151 U/L (46-116); Anion Gap 18.8; Aspartate Amino Transferase 20 U/L (15-37); BUN Creatinine Ratio 17.7; Bilirubin Total 0.2 mg/dL (0.2-1.0); Calcium 10.3 mg/dL (8.5-10.1); Carbon Dioxide 23.6 mmol/L (21.0-32.0); Chloride 105 mmol/L (98-107); Estimated GFR (African America 53 (>=60); Estimated GFR (Non-African Ame 44 (>=60); Globulin 5.3 g/dL; Glucose 121 mg/dL (74-106); Potassium 4.4 mmol/L (3.5-5.1); Sodium 143 mmol/L (136-145); Total Protein 9.2 g/dL (6.4-8.2); Troponin I High Sensitivity <4.0 pg/mL (4.0-76.1)
--- NOTE | 2023-04-23 16:32 | ECG_ITS ---
The [facility] Test Date: 2023-04-23 Pat Name: CHIDI TAYLOR Department: Room: - Gender: Male [employer] Analyst: : 1955 Requested By: [id number] Order Number: [id number] Reading MD: VALERIANO ULRICH Measurements Intervals Milo Rate: 105 P: 49 MA: 168 QRS: 64 QRSD: 88 T: 63 QT: 334 QTc: 395 Interpretive Statements 1120 Sinus tachycardia 4068 Nonspecific Twave abnormality 9140 abnormal rhythm ECG Compared to ECG 02/09/2023 20:03:08 Sinus rhythm no longer present Electronically Signed On 04-23-2023 23:27:31 EST by VALERIANO ULRICH
[2023-04-23 16:47] LABS: PROCALCITONIN <0.05 ng/mL (0.00-0.50)
[2023-04-23] MEDS: LORAZEPAM 2 MG/ML 1 ML VIAL 1 MG IV (16:48)
--- NOTE | 2023-04-23 18:43 | XR_ITS ---
The [address] [address] Patient Name: CHIDI TAYLOR MRN: [id number] date: 1955 Sex: M Assigned Patient Location: ER Current Patient Location: ER Accession/Order Number: [id number] Exam Date: 04/23/2023 18:55 Report Date: 04/23/2023 19:58 At the request of: CARLOS WOODWARD Procedure: XR chest 1V EXAM: XR chest 1V at 1854 hours HISTORY: NG tube placement COMPARISON: 02/09/2023 TECHNIQUE: AP semierect portable chest x-ray FINDINGS: The upper lungs are not included in the [id number]. No acute infiltrate, effusion or pneumothorax is seen in the mid and lower lungs. The heart is not enlarged and the vasculature is not distended. An NG tube is in place, coursing into the stomach with the tip in the fundus laterally. The tip of the NG tube is approximately 15 cm distal to the gastroesophageal junction. A metallic linear foreign bodies projects over the right lung base which is probably extrinsic to the patient. An electronic device is seen along the lateral aspect of the chest wall on the left. XR/XR chest 1V IMPRESSION: Relatively satisfactory position of the NG tube. The visualized lung is clear. There is no evidence of overt cardiac decompensation. Electronically authenticated by: NAZ DRAPER Date: 04/23/2023 19:58
--- OUTSIDE RECORDS SUMMARY | 2023-04-23 21:10 | XMS_ITS | CCD ---
Author Name Unknown Address [id number] [place] [address] Organization [facility] Care Team Providers Care Material Crew Supervisor Name Role Phone SAYON, PIEDAD Unavailable Unavailable SAYON, PIEDAD Unavailable Unavailable NO FAMILY DOCTOR, NO FAMILY DOCTOR Unavailable Unavailable SAYON, PIEDAD Unavailable Unavailable NO FAMILY DOCTOR, NO FAMILY DOCTOR Unavailable Unavailable SAYTAWNY PIEDAD Unavailable Unavailable LIZZ AGUILAR Unavailable Unavailable WELLINGTON BELTRÁN Unavailable Unavailable Kevin Robles Primary Care Provider Kevin Robles Primary Care Provider IlKevin marie DO Primary Care Provider CARSON MATAMOROS Primary Care Physician Mónica Woodward Unavailable Unavailable ANSONERERick, DR CARSON Perez Admitting Unavailable NADERER, DR CARSON Perez Primary Care Unavailable WALN[place], DR DAVID Ridley Consulting Unavailable NADERER, DR CARSON Perez Attending Unavailable NADERERick, DR CARSON Perez Consulting Unavailable NADERERick, DR CARSON Perez Primary Care Unavailable ANSONERER, DR CARSON Perez Attending Unavailable NADINE, DR LIZZ Cabrera Consulting Unavailable NADERERick, DR CARSON Perez Admitting Unavailable NADERER, DR CARSON Perez Consulting Unavailable NADERERick, DR CARSON Perez Admitting Unavailable NADERERick, DR CARSON Perez Primary Care Unavailable EDIL, DR CARSON Perez Attending Unavailable EDIL, DR CARSON Perez Primary Care Unavailable ABIGAIL BELTRÁN Attending Unavailable ABIGAIL BELTRÁN Admitting Unavailable IRWIN QUICK Consulting Unavailable ABIGAIL BELTRÁN Consulting Unavailable MOR FAULKNER Consulting Unavailable Ilo Kevin FRIAS Primary Care Provider [phone] Kevin Robles DO Primary Care Provider Carson Matamoros MD Primary Care Provider Carson Matamoros MD Primary Care Provider CARSON MATAMOROS Primary Care Unavailabl e BALJINDER VÁZQUEZ Consulting Unavailable KELLY OWUSU Attending Unavailable ROGER, RAEANN Lopez Admitting Unavailable TUTJOSE, TOSHIA Consulting Unavailable ROGER, RAEANN Lopez Consulting Unavailable CLARENCEPEBBLES MORRISSEY B Consulting Unavailable AVASTHANGELA Ng Consulting Unavailable Yasmani CAMARA Attending Unavailable Melchor Rivera Admitting Unavailabl e Melchor Rivera Attending Unavailabl e RobenstineKari. Admitting Unavailab Leonel Olivarez Attending Unavailable Yasmani CAMARA Attending Unavailable CARSON MATAMOROS Attending Unavailable LYNNETTE BRANCH L Referring Unavailable [facility] Care Unavailabl e NADERER, CARSON [facility] Care Unavailabl e NADERER, CARSON MENDOZA Referring Unavailabl e LUZ MARINA DURAND Consulting Unavailable YANA CORNEJO Admitting Unavailable YANA CORNEJO Attending Unavailable CARSON MATAMOROS [facility] Unavailabl e CORYJOSE Admitting Unavailable CORYJOSE EVLASCO Attending Unavailable [facility] Unavailabl e IACOBLYLA Admitting Unavailable IACLYLA RASCON Attending Unavailable ANSONERECARSON Cabrera [facility] Unavailabl e NAZ CORONA Consulting Unavailable [facility] Unavailabl e PATEL, DIPAKKUMAR P Admitting Unavailable PATEL, DIPAKKUMAR P Attending Unavailable KEVIN ROBLES Primary Care Unavailable NARCISA, LYNNETTE L Referring Unavailable NARCISA, LYNNETTE L Referring Unavailable NADERERCARSON REJI Primary [facility] Unavailabl e NADERER, CARSON Primary Care Unavailable DIAN RANDALL Attending Unavailable DIAN RANDALL Attending Unavailable DIAN RANDALL Referring Unavailable CARSON MATAMOROS Primary Care Unavailable DIAN RANDALL Attending Unavailable DIAN RANDALL Referring Unavailable CARSON MATAMOROS Primary Care Unavailable Carson Matamoros MD Primary Care Provider CARSON MATAMOROS Primary Care Unavailable DENEEN DE JESUS Attending Unavailable NAZIA BROUSSARD Admitting Unavailable ROMANA CALVO Consulting Unavailable LUZ MARINA ADAMS Consulting Unavailable [facility] Consulting U navailable (TTH ONLY), NEURO-CONSULTING Consulting Alona vailable DIAN RANDALL Referring Unavailable NADERER, CARSON Primary Care Unavailable LARRY SERRAON Referring Unavailable NADERER, CARSON Primary Care Unavailable KALIFA, MUHAMAD U Attending Unavailable KALIFA, MUHAMAD U Referring Unavailable NADERER, CARSON Primary Care Unavailable KALIFA, MUHAMAD U Attending Unavailable KALIFA, MUHAMAD U Referring Unavailable NADERER, CARSON Primary Care Unavailable KALIFA, MUHAMAD U Attending Unavailable KALIFA, MUHAMAD U Referring Unavailable NADERER, CARSON Primary Care Unavailable XAVIER SEGAL Referring Unavailable NADERER, CARSON Primary Care Unavailable KALIFA, MUHAMAD U Attending Unavailable KALIFA, MUHAMAD U Referring Unavailable NADERER, CARSON Primary Care Unavailable KALIFA, MUHAMAD U Attending Unavailable KALIFA, MUHAMAD U Referring Unavailable NADERER, CARSON Primary Care Unavailable KALIFA, MUHAMAD U Attending Unavailable KALIFA, MUHAMAD U Referring Unavailable NADERER, CARSON Primary Care Unavailable EDILMA TRAVIS Referring Unavailable NADERER, CARSON Primary Care Unavailable Allergies Allergy Classification Reported Allergen(s) Allergy Type Date of Onset Reaction(s) Facility Lincosamides (antibiotic) (1 source) Clindamycin Drug Allergy 4 [facility] Penicillins (antibiotic) (1 source) Penicillins Drug Allergy 3 Hives, Shortness Of Breath [facility] (20 sources) clindamycin; Translations: [CLINDAMYCIN] Drug Allergy 5 [facility] Repository (20 sources) Penicillins; Translations: [PENICILLINS] Propensity to adverse reactions to drug (disorder) 5 Hives, Shortness Of Breath [facility] Repository (1 source) OTHER; Translations: [OTHER] Propensity to adverse reactions (disorder) 5 [facility] Repository (9 sources) Nuts 1 Food intolerance Unknown (qualifier value) [facility] Comment on above: Due to GI issues (1 source) Nuts (not including peanuts); Translations: [Nuts] Food allergy (disorder) [facility] Repository Medications Current Medications Medication Drug Class(es) Dates Sig (Normalized) Sig (Original) Acetaminophen (20 sources) Start: 09-02-2022 acetaminophen (TYLENOL) tablet 650 mg Start: 06-21-2022 acetaminophen (TYLENOL) tablet 650 mg Start: 06-11-2021 take 650 mg by mouth every four hours as needed for pain acetaminophen 650 mg, Oral, q4hr, PRN as needed for pain, Refills(s) 0 Start Date: 06/11/21 Status: Ordered Start: 06-11-2021 take 650 mg by mouth every six hours as needed for pain acetaminophen 650 mg, Oral, q6hr, PRN as needed for pain, Refills(s) 0 Start Date: 06/11/21 Status: Ordered Start: 03-23-2020 Start: 12-15-2015 take 2 tablets by mo uth every four hours as needed for pain acetaminophen (TYLENOL) 325 MG tablet Take 2 tablets by mouth every 4 hours as needed for Pain 120 tablet 3 12/15/2015 Active carbamide peroxide 65 mg/ml otic solution (5 sources) Start: 06-11-2021 Debrox 6.5% ot ic solution 5 drop(s), Refill(s) 0, at bedtime once a month Start Date: 06/11/21 Status: Ordered Start: 11-12-2018 carbamide peroxi de (DEBROX) 6.5 % otic solution Place 4 drops into both ears every 30 days Apply cotton swabs to ears, after instilling drops. Then irrigate with room temperature water the next morning 0 Active chromium picolinate 0.1 mg / inulin 2000 mg chewable tablet (2 sources) Start: 11-12-2018 Debrox 6.5% otic solution (5 sources) Start: 06-11-2021 Debrox 6.5% otic solution 5 drop(s), Refill(s) 0, at bedtime once a month Start Date: 06/11/21 Status: Ordered diatrizoate meglumine-sodium (GASTROGRAFIN) 66-10 % solution 75 mL (1 source) Start: 06-22-2022 diatrizoate meglumine-sodium (GASTROGRAFIN) 66-10 % solution 75 mL diatrizoate meglumine-sodium (GASTROGRAFIN) 66-10 % solution 90 mL (1 source) Start: 05-11-2022 diatrizoate meglumine-sodium (GASTROGRAFIN) 66-10 % solution 90 mL Ear Wax 6.5% otic solution (2 sources) Start: 06-24-2022 Ear Wax 6.5% otic solution 4 drop(s), Otic, Bedtime, 15 mL, Refill(s) 0, INSTILL 4 DROPS INTO BILATERAL EARS AT BEDTIME ONCE A MONTH THEN APPLY COTTON SWABS TO EARS, THEN IRRIGATE WITH ROOM TEMP H20 THEN NEXT MORNING. Start Date: 06/24/22 Status: Ordered erythromycin ethylsuccinate 40 mg/ml oral suspension (5 sources) Macrolide, Macrolide Antimicrobial Start: 09-07-2022 End: 09-17-2022 take 5 mL by mouth three times daily at dinner erythromycin (EES) 200 MG/5ML suspension Take 5 mLs by mouth 3 times daily for 10 days Give with Breakfast, Dinner, and Bedtime 150 mL 0 09/07/2022 09/17/2022 Active Start: 09-07-2022 End: 09-07-2022 take 5 mL by mouth four times daily at mealtime erythromycin (EES) 200 MG/5ML suspension Take 5 mLs by mouth 4 times daily (with meals and nightly) for 10 days 200 mL 0 09/07/2022 09/07/2022 Discontinued (REORDER) Start: 09-03-2022 End: 09-05-2022 erythromycin (EES) 200 MG/5M L suspension 200 mg famotidine (PEPCID) 20 mg in sodium chloride (PF) 0.9 % 10 mL injection (1 source) Start: 06-22-2022 famotidine (PEPCID) 20 mg in sodium chloride (PF) 0.9 % 10 mL injection finasteride 5 mg oral tablet (20 sources) 5-alpha Reductase Inhibitor Start: 08-14-2015 hydrocortisone 25 mg/ml topical cream (6 sources) Corticosteroid Start: 02-18-2020 apply 1 dose topically twice daily Topical, 2 TIMES DAILY, First dose on 09/02/22 at 2330 Apply to affected areas. Start: 02-18-2020 hydrocortisone Top 2.5% Crm daily, Topical, BID, Refill(s) 0 Start Date: 11/08/22 Status: Ordered hydrOXYzine hydrochloride 25 mg oral tablet (14 sources) Antihistamine Start: 11-12-2018 take 1 tablet by mouth four times daily hydrOXYzine hydrochloride 25 mg Tab 25 mg = 1 tab(s), Oral, QID, Refills(s) 0, Anxiety Start Date: 12/16/18 Status: Ordered Start: 11-12-2018 take 1 tablet by kecia th every twelve hours as needed hydrOXYzine hydrochloride 25 mg Tab 25 mg = 1 tab(s), Oral, q12hr, PRN as needed for itching, Refills(s) 0 Start Date: 06/24/22 Status: Ordered Ibuprofen (7 sources) Nonsteroidal Anti-inflammatory Drug Start: 12-16-2018 ibuprofen PRN as needed for pain, Refills(s) 0, Pain Start Date: 12/16/18 Status: Ordered 1 ml ketorolac tromethamine 15 mg/ml cartridge (1 source) Nonsteroidal Anti-inflammatory Drug, Cyclooxygenase Inhibitor Start: 05-09-2022 End: 05-14-2022 ketorolac (TORADOL) injection 15 mg levETIRAcetam (KEPPRA) 2,000 mg in sodium chloride 0.9 % 250 mL IVPB (1 source) Start: 06-22-2022 levETIRAcetam (KEPPRA) 2,000 mg in sodium chloride 0.9 % 250 mL IVPB loperamide hydrochloride 2 mg oral capsule (18 sources) Opioid Agonist Start: 02-07-2021 take 1 mg by mouth every four hours loperamide 2 mg Cap mg cap(s), Oral, q4hr, Refills(s) 0 Start Date: 02/07/21 Status: Ordered Start: 04-03-2017 Start: 08-14-2015 take 1 mg by mouth f our times daily as needed loperamide 1 mg, Oral, QID, PRN as needed for loose stool, Refills(s) 0, Loose stool Start Date: 08/14/15 Status: Ordered End: 09-03-2022 loperamide (IMODIUM) 2 MG ca psule Take 1 capsule by mouth 4 times daily as needed for Diarrhea (2 caps by mouth with 1st loose stool, then 1 cap by mouth PRN for additional loose stools. (Max 16mg/24hours)) 0 09/03/2022 Discontinued (LIST CLEANUP) LORazepam 0.5 mg oral tablet (14 sources) Benzodiazepine Start: 04-02-2017 take 1 tablet by mouth three times daily as needed LORazepam 0.5 mg Tab See Instructions, PRN Seizure, 1 tab(s) Oral TID, # 24 tab(s), Refills(s) 0 Start Date: 02/05/21 Status: Ordered Start: 04-02-2017 take 1 tablet by kecia th every eight hours as needed LORazepam 0.5 mg Tab 0.5 mg = 1 tab(s), Oral, q8hr, PRN Other (see comment), Refills(s) 0 Start Date: 06/24/22 Status: Ordered magnesium oxide 400 mg oral tablet (3 sources) Start: 04-19-2023 End: 04-20-2023 meclizine hydrochloride 25 mg oral tablet (14 sources) Antiemetic Start: 12-16-2018 take 1 tablet by mouth three times daily meclizine 25 mg oral tablet, chewable 25 mg = 1 tab(s), Chewed, TID, Refills(s) 0, Dizziness Start Date: 12/16/18 Status: Ordered Start: 11-12-2018 take 1 tablet by kecia th every eight hours as needed for dizziness meclizine 25 mg Tab 25 mg = 1 tab(s), Oral, q8hr, PRN Dizziness, FOR DIZZINESS, Refills(s) 0 Start Date: 06/24/22 Status: Ordered metoclopramide 5 mg oral tablet (1 source) Dopamine-2 Receptor Antagonist Start: 06-27-2022 End: 07-11-2022 take 1 tablet by mouth 30 minutes before bedtime Reglan 5 mg Tab 5 mg = 1 tab(s), Oral, QIDACHS, not to exceed 12 weeks duration. 30 minutes before meals and at bedtime. Will need to follow-up with PCP and/or GI for further prescription., X 14 day(s), # 56 tab(s), Refills(s) 0, [facility]: [id number], [id number].... Start Date: 06/27/22 Stop Date: 07/11/22 Status: Ordered mineral oil 0.03 mg/mg / petrolatum 0.94 mg/mg ophthalmic ointment (2 sources) Start: 10-17-2017 ondansetron (ZOFRAN-ODT) disintegrating tablet 4 mg (3 sources) Start: 09-02-2022 ondansetron (ZOFRAN-ODT) disintegrating tablet 4 mg Start: 06-21-2022 ondansetron (Z OFRAN-ODT) disintegrating tablet 4 mg Start: 05-09-2022 ondansetron (Z OFRAN-ODT) disintegrating tablet 4 mg 24 hr oxybutynin chloride 5 mg extended release oral tablet (7 sources) Cholinergic Muscarinic Antagonist Start: 09-06-2022 oxybutynin (DITROPAN-XL) extended release tablet 10 mg Start: 06-24-2022 take 1 tablet by kecia th once daily oxybutynin 10 mg ER Tab 10 mg = 1 tab(s), Oral, Daily, Refills(s) 0 Start Date: 06/24/22 Status: Ordered Oyster Taye (7 sources) Start: 12-16-2018 Oyster Taye Ora l, TID, Refills(s) 0, Prophylaxis Start Date: 12/16/18 Status: Ordered pantoprazole 40 mg delayed release oral tablet (4 sources) Proton Pump Inhibitor Start: 09-07-2022 take 1 tablet by mouth once daily Pantoprazole [address] Tab 40 mg, Oral, Daily, Refills(s) 0 Start Date: 11/08/22 Status: Ordered pantoprazole (PROTONIX) 40 mg in sodium chloride (PF) 0.9 % 10 mL injection (2 sources) Start: 09-04-2022 pantoprazole (PROTONIX) 40 mg in sodium chloride (PF) 0.9 % 10 mL injection Start: 05-09-2022 pantoprazole ( PROTONIX) 40 mg in sodium chloride (PF) 0.9 % 10 mL injection Senna Leaves (5 sources) Start: 07-05-2021 take 1 tablet by mouth twice daily senna 8.6 mg Tab 8.6 mg = 1 tab(s), Oral, BID, Refills(s) 0 Start Date: 07/05/21 Status: Ordered sennosides, prison 8.6 mg oral tablet (10 sources) Start: 07-05-2021 take 1 tablet by mouth twice daily senna 8.6 mg Tab 8.6 mg = 1 tab(s), Oral, BID, Refills(s) 0 Start Date: 07/05/21 Status: Ordered traZODone hydrochloride 50 mg oral tablet (12 sources) Serotonin Reuptake Inhibitor Start: 07-05-2021 take 1 tablet by mouth at bedtime traZODONE 50 mg Tab 50 mg = 1 tab(s), Oral, Bedtime, Refills(s) 0 Start Date: 07/05/21 Status: Ordered vitamin b12 1 mg oral tablet (3 sources) Vitamin B12 Start: 04-19-2023 Start: 04-09-2023 End: 04-13-2023 inject 1000 ug by intramuscular injection once daily 1,000 mcg, intramuscular, Daily, First dose on Sun04/09/23 at 1445, For 5 doses Vitamin D 1000 intl units (25 mcg) Tab (2 sources) Start: 06-24-2022 take 1 tablet by mouth once daily Vitamin D 1000 intl units (25 mcg) Tab 25 mcg = 1 tab(s), Oral, Daily, Refills(s) 0 Start Date: 06/24/22 Status: Ordered Zofran ODT 4 mg Tab-Dis (1 source) Start: 02-28-2021 take 1 tablet by mouth every eight hours Zofran ODT 4 mg Tab-Dis 4 mg = 1 tab(s), Oral, q8hr, # 10 tab(s), Refills(s) 0, Pharmacy: [address], 172.7, cm, 02/28/21 17:40:00 EST, Height/Length Dosing, 94.1, kg, 02/28/21 17:40:00 EST, Weight Dosing Start Date: 02/28/21 Status: Ordered Completed/Discontinued Medications Medication Drug Class(es) Dates Sig (Normalized) Sig (Original) albuterol 0.83 mg/ml inhalation solution (3 sources) beta2-Adrenergic Agonist Start: 04-09-2023 End: 04-20-2023 take 2.5 mg by inhalation every six hours as needed for wheezing and dyspnea 2.5 mg, nebulization, Every 6 hours PRN, wheezing, shortness of breath, Starting on Sun04/09/23 at 0820, Implement INPATIENT/ED Bronchodilator Clinical Practice Guidelines? Yes, Document: \[facility]\ epic\EPIC_Reference\O rders\Respiratory Care Guidelines\CPG Bronchodilator 2020.pdf Start: 02-15-2023 bisacodyl 10 mg rectal suppository (1 source) Stimulant Laxative Start: 09-03-2022 End: 09-07-2022 bisacodyl (DULCOLAX) suppository 10 mg calcium carbonate 500 mg chewable tablet (8 sources) Start: 09-02-2022 take 1 tablet by mouth twice daily 500 mg (1 tablet), Oral, 2 TIMES DAILY, First dose on 09/02/22 at 2330, Until Discontinued Start: 06-24-2022 calcium carbon ate 500 mg Chew Tab 500 mg = 1 tab(s), Chewed, BID, # 15 tab(s), Refills(s) 0 Start Date: 06/24/22 Status: Ordered Start: 11-12-2018 take 1 tablet by kecia twice daily calcium carbonate (OYSTER SHELL CALCIUM 500 MG) 1250 (500 Ca) MG tablet Take 1 tablet by mouth 2 times daily 0 Active calcium chloride 0.0014 meq/ ml / potassium chloride 0.004 meq/ml / sodium chloride 0.103 meq/ml / sodium lactate 0.028 meq/ml injectable solution (2 sources) Start: 09-02-2022 End: 09-06-2022 IntraVENous, at 75 mL/hr, CONTINUOUS, Starting on 09/02/22 at 2330 Start: 05-09-2022 End: 05-12-2022 lactated ringers IV soln inf usion cholecalciferol 0.025 mg oral tablet (13 sources) Vitamin D Start: 12-16-2018 take 1 capsule by mouth once daily cholecalciferol 1000 intl units oral capsule 1,000 International_Unit = 1 cap(s), Oral, Daily, Refills(s) 0, Prophylaxis Start Date: 12/16/18 Status: Ordered Start: 09-04-2018 take 1000 [IU] by mo [facility] once daily 1,000 Units, Oral, DAILY, First dose on 09/03/22 at 0900, Until Discontinued Labeling may look different. 25 bwo=[id number] Units. Please double check dosages. take 1 tablet by kecia th once daily Vitamin D (CHOLECALCIFEROL) 25 MCG (1000 UT) TABS tablet Take 1 tablet by mouth daily 0 Active 2 ml diazePAM 5 mg/ml rectal gel (14 sources) Benzodiazepine Start: 09-02-2022 20 mg, Rectal, PRN, Starting on 09/02/22 at 2314, Until Discontinued, seizures, as indicated Start: 06-21-2022 20 mg, Rectal, PRN, Starting on Sun06/21/22 at 1710, Until Discontinued, seizure activity >15 minutes Start: 06-11-2021 diazepam 12.5- 20mg kit, Rectal, Once, PRN for seizure activity >15 minutes, Refills(s) 0 Start Date: 06/11/21 Status: Ordered diazePAM (DIASTA T) [address] 20 mg rectally as needed. Insert 20mg rectally as needed for seizure activity >15 minutes 0 Active diphenhydrAMINE hydrochloride 25 mg oral tablet (2 sources) Histamine-1 Receptor Antagonist End: 09-03-2022 take 1 tablet by mouth every four hours as needed diphenhydrAMINE (BENADRYL) 25 MG tablet Take 1 tablet by mouth every 4 hours as needed for Itching (rash) 0 09/03/2022 Discontinued (LIST CLEANUP) 0.4 ml enoxaparin sodium 100 mg/ml prefilled syringe (3 sources) Low Molecular Weight Heparin Start: 09-03-2022 inject 40 mg by subcutaneous injection once daily 40 mg, SubCUTAneous, DAILY, First dose on Sun09/03/22 at 0900, Until Discontinued Indication of Use: Prophylaxis-DVT/PE Start: 06-21-2022 inject 40 mg by subc utaneous injection once daily 40 mg, SubCUTAneous, DAILY, First dose on Sun06/21/22 at 1730, Until Discontinued Indication of Use: Prophylaxis-DVT/PE Start: 05-09-2022 enoxaparin (LO VENOX) injection 40 mg glucagon (rdna) 1 mg injection (1 source) Antihypoglycemic Agent Start: 04-08-2023 End: 04-20-2023 1 mg, intramuscular, As needed, low blood sugar, blood glucose less than 70 mg/dL and unconscious or NPO without IV access., Starting on 04/08/23 at 0935, If conscious and not NPO, immediately follow with meal tray or high protein (7Grams) snack if tray not available. If NPO, initiate IV 5% Dextrose/Water at 100 mL/hr and contact prescriber for additional orders. If blood glucose is not greater than 70 mg/dL after initial treatment, repeat treatment. 150 ml glucose 50 mg/ml injection (3 sources) Start: 04-08-2023 End: 04-20-2023 15 g, oral, As needed, low blood sugar, blood glucose less than 70 mg/dL, Starting on 04/08/23 at 0935, If patient conscious and taking PO. If blood glucose is not greater than 70 mg/dL after initial treatment, repeat treatment. Start: 04-08-2023 End: 04-20-2023 25 mL, intravenous, As neede d, low blood sugar, blood glucose less than 70 mg/dL and unconscious or NPO with IV access, Starting on 04/08/23 at 0935, Push over 1-3 minutes STAT. If conscious and not NPO, immediately follow with meal tray or high protein (7 grams) snack if tray not available. If NPO, initiate 5% dextrose in water at 100 mL/hr and contact prescriber for additional orders. If blood glucose is not greater than 70 mg/dL after initial treatment, repeat treatment. VESICANT (RED) Warning: HYPERTONIC solution. Start: 04-08-2023 End: 04-20-2023 take 70 mg intravenously every hour 100 mL/hr, intravenous, Continuous PRN, blood glucose less than 70 mg/dL, Starting on 04/08/23 at 0935, Use immediately following dextrose 50% or glucagon treatment for patients who are unconscious or NPO. Contact prescriber for additional orders. If blood glucose is not greater than 70 mg/dL after initial treatment, repeat treatment. 250 ml glucose 50 mg/ml / sodium chloride 4.5 mg/ml injection (1 source) Start: 04-12-2023 End: 04-14-2023 take 75 mL intravenously every hour 75 mL/hr, intravenous, Continuous, Starting on Vilma 04/12/23 at 1045 1 ml heparin sodium, porcine 5000 unt/ml injection (1 source) Unfractionated Heparin, Anti-coagulant Start: 04-08-2023 End: 04-20-2023 5,000 Units, subcutaneous, Every 8 hours scheduled, First dose on 04/08/23 at 1100, Notify prescriber if INR greater than 1.9, hemoglobin less than 10 mg/dL, aPTT greater than 40 seconds, and/or platelet count less than 100,000/mm Look-alike/sound- alike medication - verify indication for use. Observe for bleeding. iopamidol (ISOVUE-370) 76 % injection 75 mL (2 sources) Start: 09-02-2022 End: 09-02-2022 iopamidol (ISOVUE-370) 76 % injection 75 mL Start: 06-21-2022 End: 06-21-2022 iopamidol (ISOVUE-370) 76 % injection 75 mL lacosamide 150 mg oral tablet (20 sources) Anti-epileptic Agent Start: 04-18-2023 End: 04-20-2023 take 1 tablet by mouth every twelve hours 150 mg, oral, Every 12 hours, First dose on Sun04/18/23 at 1300, Swallow tablets whole; do not divide. Start: 09-04-2022 End: 09-04-2022 lacosamide (VIMPAT) injectio n 150 mg Start: 09-02-2022 take 1 tablet by kecia twice daily 150 mg, Oral, 2 TIMES DAILY, First dose on Sun09/02/22 at 2330, Until Discontinued Swallow tablets whole; do not crush, split, or chew. Start: 05-12-2022 take 1 tablet by kecia twice daily 150 mg, Oral, 2 TIMES DAILY, First dose on Sun05/12/22 at 1100, Until Discontinued Swallow tablets whole; do not crush, split, or chew. Start: 08-14-2015 take 1 tablet by kecia th once daily lacosamide (VIMPAT) 150 MG TABS tablet Take 150 mg by mouth daily 0 Active lacosamide (VIMPAT) 150 mg i n sodium chloride 0.9 % 65 mL IVPB (3 sources) Start: 09-04-2022 End: 09-06-2022 lacosamide (VIMPAT) 150 mg i n sodium chloride 0.9 % 65 mL IVPB Start: 06-22-2022 lacosamide ( MPAT) 150 mg in sodium chloride 0.9 % 65 mL IVPB Start: 05-09-2022 End: 05-12-2022 lacosamide (VIMPAT) 150 mg i n sodium chloride 0.9 % 65 mL IVPB lamoTRIgine 200 mg oral tablet (20 sources) Mood Stabilizer, Anti-epileptic Agent Start: 04-18-2023 End: 04-20-2023 take 400 mg by mouth once daily 400 mg, oral, Daily, First dose on Sun04/18/23 at 0900, Look-alike/sound-alike medication - verify indication for use. Start: 04-17-2023 End: 04-20-2023 take 600 mg by mouth once daily 600 mg, oral, Nightly, First dose on Sun04/17/23 at 2200, Look-alike/sound-alike medication - verify indication for use. Start: 09-06-2022 lamoTRIgine (L AMICTAL) tablet 400 mg Start: 09-02-2022 take 600 mg by mouth once daily 600 mg, Oral, Nightly, First dose on 09/02/22 at 2330, Until Discontinued Start: 04-03-2017 End: 04-08-2023 take 2 tablets by mouth once daily in the morning lamotrigine 200 mg Tab 400 mg = 2 tab(s) , Oral, qAM, Refills(s) 0 Start Date: 06/24/22 Status: Ordered Start: 08-14-2015 take 3 tablets by mo ut at bedtime lamotrigine 200 mg Tab 600 mg = 3 tab(s) , Oral, Bedtime, Refills(s) 0, Seizure Start Date: 08/14/15 Status: Ordered Start: 08-14-2015 lamotrigine 20 0 mg Tab See Instructions, pt takes 2 tablets in am and 3 tablets at hs., Refills(s) 0, Seizure Start Date: 08/14/15 Status: Ordered take 1 tablet by [facility] twice daily lamoTRIgine (LAMICTAL) 200 MG tablet Amanuel e 200 mg by mouth 2 times daily 0 Active latanoprost 0.05 mg/ml ophthalmic solution (15 sources) Prostaglandin Analog Start: 04-09-2023 End: 04-20-2023 1 drop, both eyes, Nightly, First dose on 04/09/23 at 2200 Start: 09-02-2022 1 drop, Both E yes, NIGHTLY, First dose on 09/02/22 at 2330, Until Discontinued Start: 06-24-2022 take 1 drop(s) into the eye(s) at bedtime latanoprost 0.005% ophthalmic emulsion 1 drop(s), Eye-Both, Bedtime, Refill(s) 0 Start Date: 06/24/22 Status: Ordered Start: 06-11-2021 latanoprost op hthalmic 0.005 %, Eye-Both, qPM, Refill(s) 0 Start Date: 06/11/21 Status: Ordered take 1 drop(s) into the eye(s) once daily latanoprost (XALATAN) 0.005 % ophthalmic solution Place 1 drop into both eyes nightly 0 Active levETIRAcetam 750 mg oral tablet (20 sources) Start: 04-19-2023 End: 04-20-2023 take 1500 mg by mouth once daily 1,500 mg, oral, Daily, First dose on Sun04/19/23 at 0900, Look-alike/sound-alike medication - verify indication for use. Start: 04-18-2023 End: 04-20-2023 take 2000 mg by mouth once daily 2,000 mg, oral, Nightly, First dose on Sun04/18/23 at 2200, Look-alike/sound-alike medication - verify indication for use. Start: 04-08-2023 End: 04-18-2023 1,500 mg, intravenous, at 40 0 mL/hr, Administer over 15 Minutes, Every morning before breakfast, First dose on 04/08/23 at 1200, Look-alike/sound-alike medication - verify indication for use. Start: 09-03-2022 End: 09-06-2022 levETIRAcetam (KEPPRA) 1500 mg/100 mL IVPB Start: 09-03-2022 take 1500 mg by mout h once daily in the morning 1,500 mg, Oral, EVERY MORNING, First dos e on 09/03/22 at 0900, Until Discontinued Do not crush or chew. Start: 09-02-2022 take 2000 mg by mout h once daily in the evening 2,000 mg, Oral, EVERY EVENING, First dos e on 09/02/22 at 2330, Until Discontinued Do not crush or chew. Start: 06-25-2022 take 2 tablets by mo uth once daily levETIRAcetam 750 mg oral tablet, dispersible 1,500 mg = 2 tab(s), Oral, Daily, Refills(s) 0 Start Date: 06/25/22 Status: Ordered Start: 06-24-2022 levETIRAcetam (KEPPRA) 1500 mg/100 mL IVPB Start: 05-12-2022 take 1500 mg by mout twice daily 1,500 mg, Oral, 2 TIMES DAILY, First dos e on Sun05/12/22 at 1100, Until Discontinued Start: 04-03-2017 End: 04-08-2023 take 2 tablets by mouth at bedtime levetiracetam 1000 mg oral tablet 2,000 mg = 2 tab(s), Oral, Bedtime, Refills(s) 0 Start Date: 06/25/22 Status: Ordered Start: 08-14-2015 levetiracetam 1500, Oral, BID, Refills(s) 0, Seizure Start Date: 08/14/15 Status: Ordered take 1 tablet by [facility] twice daily LEVETIRACETAM PO Indications: dissolvabl e tablet Take 1,500 mg by mouth 2 times daily Indications: dissolvable tablet 0 Active take 1 tablet by [facility] twice daily levETIRAcetam (KEPPRA) 750 MG tablet Indications: dissolvable tablet Take 750 mg by mouth 2 times daily Indications: dissolvable tablet 0 Active levETIRAcetam (KEPPRA) 1,500 mg in sodium chloride 0.9 % 100 mL IVPB (2 sources) Start: 06-22-2022 End: 06-23-2022 levETIRAcetam (KEPPRA) 1,500 mg in sodium chloride 0.9 % 100 mL IVPB Start: 05-09-2022 End: 05-12-2022 levETIRAcetam (KEPPRA) 1,500 mg in sodium chloride 0.9 % 100 mL IVPB levETIRAcetam (KEPPRA) 2,000 mg in sodium chloride 0.9 % 120 mL IVPB (1 source) Start: 04-08-2023 End: 04-18-2023 2,000 mg, intravenous, at 480 mL/hr, Administer over 15 Minutes, Bedtime, First dose on Sun04/08/23 at 2200, Look-alike/sound-alike medication. Verify indication for use. levoFLOXacin 250 mg oral tablet (14 sources) Quinolone Antimicrobial End: 05-12-2022 take 2 tablets by mouth once daily levofloxacin (LEVAQUIN) 250 MG tablet Take 500 mg by mouth daily 0 05/12/2022 Discontinued (Therapy completed) 50 ml magnesium sulfate 40 mg/ml injection (4 sources) Start: 04-08-2023 End: 04-20-2023 2,000 mg, intravenous, at 25 mL/hr, Administer over 120 Minutes, As needed, Magnesium level 1.7 to 1.9 mg/dL, or Ionized Magnesium level 0.45 to 0.5 mmol/L., Starting on 04/08/23 at 1151, Recheck magnesium level 4 hours after infusion complete. With each magnesium result continue the replacement orders as needed. Start: 04-08-2023 End: 04-20-2023 4,000 mg, intravenous, at 25 mL/hr, Administer over 240 Minutes, As needed, Magnesium level 1.6 mg/dL or less, or Ionized Magnesium level 0.44 mmol/L or less, Starting on 04/08/23 at 1151, Recheck magnesium level 4 hours after infusion complete. With each magnesium result continue the replacement orders as needed. Start: 09-03-2022 End: 09-03-2022 magnesium sulfate 1000 mg in dextrose 5% 100 mL IVPB Start: 09-02-2022 2,000 mg, Intr aVENous, at 25 mL/hr, Administer over 2 Hours, PRN, Other, Magnesium Replacement, Starting on 09/02/22 at 2314 Mag Lab Replacement Action 1.4-1.6 mg/dL 2,000 mg Total Dose Given as 1,000 mg IVPB x 2 doses or 2,000 mg IVPB x 1 dose & nbsp; 1.0-1.3 mg/dL 4,000 mg Total Dose & nbsp; Given as 1,000 mg IVPB x 4 doses or 2,000 mg IVPB x 2 doses Less than 1.0 mg/dL CALL PHYSICIAN and give & nbsp; 4,000 mg Total Dose & nbsp; Given as 1,000 mg IVPB x 4 doses or 2,000 mg IVPB x 2 doses Infuse at 1,000 mg/hr Repeat Mag level next AM Protocol not for use in Patients with CrCl less than 30ml/min melatonin 3 mg oral tablet (13 sources) Start: 07-05-2021 take 3 mg by mouth once daily as needed 3 mg, Oral, NIGHTLY PRN, Starting on 09/02/22 at 2314, Until Discontinued, insomnia NONFORMULARY (14 sources) End: 05-12-2022 NONFORMULARY Indications: Se izure , Valium [address] rectally as needed Indications: Seizure, Valium 20 mg suppository 0 05/12/2022 Discontinued (Stop Taking at Discharge) NONFORMULARY Ind ications: Seizure , Valium [address] rectally as needed Indications: Seizure, Valium 20 mg suppository 0 Active 2 ml ondansetron 2 mg/ml injection (16 sources) Serotonin-3 Receptor Antagonist Start: 09-02-2022 End: 09-02-2022 ondansetron (ZOFRAN) injection 4 mg Start: 06-24-2022 take 1 tablet by [facility] th every six hours as needed for nausea ondansetron 4 mg Tab 4 mg = 1 tab(s), Oral, q6hr, PRN Nausea/Vomiting, Refills(s) 0 Start Date: 06/24/22 Status: Ordered Start: 06-21-2022 End: 06-21-2022 ondansetron (ZOFRAN) injecti on 4 mg Start: 05-08-2022 End: 05-08-2022 ondansetron (ZOFRAN) injecti on 4 mg Start: 10-18-2016 take 4 mg by mouth e very twelve hours as needed for nausea and vomiting and nausea and nausea Start: 10-18-2016 take 1 tablet by [facility] th three times daily as needed for nausea ondansetron 4 mg Dis Tab 4 mg = 1 tab(s), Oral, TID, PRN Nausea/Vomiting, Refills(s) 0 Start Date: 10/18/16 Status: Ordered polyethylene glycol 3350 21688 mg powder for oral solution (10 sources) Osmotic Laxative Start: 09-02-2022 17 g, Oral, D AILY PRN, Starting on 09/02/22 at 2314, Until Discontinued, Constipation First line therapy for constipation Start: 06-24-2022 take 17 g by mouth once daily MiraLax 17 gm, Oral, Daily, Refill(s) 0 Start Date: 06/24/22 Status: Ordered Start: 06-15-2022 End: 07-15-2022 17 g, Oral, DAILY PRN, Start ing on 06/21/22 at 1710, Until Discontinued, Constipation First line therapy for constipation Start: 05-12-2022 End: 06-12-2022 take 17 g by mouth once daily polyethylene glycol (GLY COLAX) 17 g packet Take 17 g by mouth daily 527 g 1 05/13/2022 06/12/2022 Active 100 ml potassium chloride 0. 1 meq/ml injection (6 sources) Start: 04-08-2023 End: 04-20-2023 10 mEq, intravenous, at 100 mL/hr, Administer over 60 Minutes, As needed, POTASSIUM REPLACEMENT, Starting on Sun04/08/23 at 1151, Potassium level 3 mmol/L or less administer Potassium Chloride 50 mEq Potassium level 3.1 to 3.3 mmol/L administer Potassium Chloride 40 mEq Potassium level 3.4 to 3.8 mmol/L administer Potassium Chloride 30 mEq Use central line when applicable. Recheck potassium level 1 hour after total IVPB infusion complete With each potassium result continue the replacement orders as needed VESICANT (YELLOW) Infuse each 10 mEq over a minimum of 1 hour., Indications: hypokalemia Start: 09-03-2022 End: 09-03-2022 potassium chloride 10 mEq/10 0 mL IVPB (Peripheral Line) Start: 05-09-2022 potassium chlo ride (KLOR-CON M) extended release tablet 40 mEq 1000 ml potassium chloride 0.02 meq/ml / sodium chloride 9 mg/ml injection (1 source) Start: 04-08-2023 End: 04-11-2023 take 50 mL intravenously every hour 50 mL/hr, intravenous, Continuous, Starting on Sun04/08/23 at 0945 primidone 250 mg oral tablet (20 sources) Anti-epilept ic Agent Start: 04-18-2023 End: 04-20-2023 take 250 mg by mouth once daily 250 mg, oral, Daily, First dose on Sun04/18/23 at 0900 Start: 04-17-2023 End: 04-20-2023 take 375 mg by mouth once daily 375 mg, oral, Nightly, First dose on Sun04/17/23 at 2200 Start: 06-24-2022 take 1 tablet by [facility] th once daily in the morning primidone 250 mg Tab 250 mg = 1 tab(s), Oral, qAM, Refills(s) 0 Start Date: 06/24/22 Status: Ordered Start: 04-03-2017 End: 04-08-2023 take 375 mg by mouth once daily 375 mg, Oral, NIGHTLY, First dose on Sun09/02/22 at 2330, Until Discontinued Start: 08-14-2015 primidone 250 mg Tab 375 mg = 1.5 tab(s), Oral, Once a day (at bedtime), Refills(s) 0, Seizure Start Date: 08/14/15 Status: Ordered Start: 08-14-2015 primidone 250 mg Tab See Instructions, pt takes 1 tablet in am and 1 1/2 tablet at night, Refills(s) 0, Seizure Start Date: 08/14/15 Status: Ordered take 1.5 tablets by mouth once daily primidone (MYSOLINE) 250 MG tablet Take 1.5 tablets by mouth nightly 0 Active 125 ml sodium chloride 9 mg/ ml prefilled syringe (16 sources) Start: 04-08-2023 End: 04-20-2023 3 mL, intravenous, Every 12 hours scheduled, First dose on 04/08/23 at 0945 Start: 04-08-2023 End: 04-20-2023 3 mL, intravenous, As needed , line care, before and after each intermittent use, Starting on [place] 04/08/23 at 0935 Start: 04-08-2023 End: 04-20-2023 take 20 mL intravenously every hour as needed 20 mL/hr, intravenous, Continuous PRN, to maintain patency of lines, Starting on [place] 04/08/23 at 0935 Start: 04-08-2023 End: 04-20-2023 take 25 mL intravenously every hour as needed 25 mL, intravenous, at 100 mL/hr, Administer over 15 Minutes, As needed, line care, line care after IVPB administration, Starting on [place] 04/08/23 at 0935 Start: 09-02-2022 IntraVENous, a t 5-250 mL/hr, PRN, if patient receiving piggyback infusions and maintenance fluids are not ordered OR KVO fluids to protect IV site / prevent frequent line interruptions/ long duration, Starting on 09/02/22 at 2314 For piggyback infusion, administer at same rate as piggyback for a total of 25 mL. Enter 25 mL into dose field and piggyback rate into rate field of order. If piggyback is infusing at a rate less than 100 mL/hr, enter 25 mL into dose field and 100 mL/hr into rate field of order. For KVO fluids, enter rate of 20 mL/hr or less into rate field of order. Start: 09-02-2022 10 mL, IntraVE Nous, EVERY 12 HOURS SCHEDULED (2 times per day), First dose on [facility] 09/02/22 at 2330, Until Discontinued Start: 09-02-2022 take 10 mL intraveno usly once as needed 10 mL, IntraVENous, PRN, Starting on Sun09/02/22 at 2314, Until Discontinued, Line Care, After every IV line use Start: 09-02-2022 End: 09-02-2022 0.9 % sodium chloride bolus Start: 06-21-2022 take 1 dose intraven ously twice daily 5-40 mL, IntraVENous, EVERY 12 HOURS SCHEDULED (2 times per day), First dose on Sun06/21/22 at 2100, Until Discontinued For Line Patency: Peripheral IV = 5 mL; Midline or Central Line = 10 mL/lumen. If following IV push medication, administer flush at same rate as the IV push. Flush volume is determined by type of infusion therapy being given. For non-viscous solutions use: Peripheral IV = 5 mL Midline or Central Line = 10 mL/lumen For viscous solutions (i.e. blood components, parenteral nutrition, contrast media, or after obtaining blood sample) use: Peripheral IV = 10 mL Midline or Central Line = 20 mL/lumen Start: 06-21-2022 IntraVENous, a t 125 mL/hr, CONTINUOUS, Starting on Sun06/21/22 at 1730 Start: 06-21-2022 IntraVENous, a t 5-250 mL/hr, PRN, if patient receiving piggyback infusions and maintenance fluids are not ordered OR KVO fluids to protect IV site / prevent frequent line interruptions/ long duration, Starting on Sun06/21/22 at 1710 For piggyback infusion, administer at same rate as piggyback for a total of 25 mL. Enter 25 mL into dose field and piggyback rate into rate field of order. If piggyback is infusing at a rate less than 100 mL/hr, enter 25 mL into dose field and 100 mL/hr into rate field of order. For KVO fluids, enter rate of 20 mL/hr or less into rate field of order. Start: 06-21-2022 take 10 mL intraveno usly once as needed 10 mL, IntraVENous, PRN, Starting on Sun06/21/22 at 1710, Until Discontinued, Line Care, After every IV line use Start: 05-09-2022 0.9 % sodium c hloride infusion Start: 05-09-2022 sodium chlorid e flush 0.9 % injection 5-40 mL Start: 05-08-2022 End: 05-09-2022 0.9 % sodium chloride bolus tamsulosin hydrochloride 0.4 mg oral capsule (20 sources) alpha-Adrenergic Ginette Start: 11-11-2022 End: 11-11-2022 tamsulosin 0.4 mg Cap 0.4 mg = 1 cap(s), Cap, Oral, Start date 11/11/22 9:00:00 EDT, 11/08/22 16:05:00 EDT Start Date: 11/11/22 Stop Date: 11/11/22 Status: Completed Start: 09-06-2022 tamsulosin (FL OMAX) capsule 0.4 mg Start: 06-27-2022 End: 06-27-2022 Flomax 0.4 mg Cap 0.4 mg = 1 cap(s), Cap, Oral, Start date 06/27/22 9:00:00 EDT, 06/24/22 14:11:00 EDT Start Date: 06/27/22 Stop Date: 06/27/22 Status: Completed Start: 06-24-2022 take 1 capsule by [facility] twice daily tamsulosin 0.4 mg Cap 0.4 mg = 1 cap(s), Oral, BID, Refills(s) 0 Start Date: 06/24/22 Status: Ordered Start: 04-03-2017 End: 07-05-2021 take 1 capsule by mouth twice daily tamsulosin 0.4 mg Cap 0.4 mg = 1 cap(s), Oral, BID, # 30 cap(s), Refills(s) 0 Start Date: 01/31/21 Status: Ordered take 1 capsule by [facility] once daily tamsulosin (FLOMAX) 0.4 MG capsule Take 0.4 mg by mouth nightly 0 Active terazosin 1 mg oral capsule (1 source) alpha-Adrenergic Ginette Start: 04-13-2023 End: 04-20-2023 1 mg, nasogastric, Daily, First dose on Sun04/13/23 at 1145 (15 sources) Start: 04-16-2023 End: 04-16-2023 148 g, oral, Once in imaging, contrast, contrast, Starting on Sun04/16/23 at 0754, For 1 dose Start: 04-16-2023 End: 04-16-2023 take 250 mL by mouth once 250 mL, oral, Once in imagin g, contrast, contrast, Starting on Sun04/16/23 at 0754, For 1 dose Start: 04-16-2023 End: 04-16-2023 take 230 mL by mouth once 230 mL, oral, Once in imagin g, contrast, contrast, Starting on Sun04/16/23 at 0754, For 1 dose Start: 04-16-2023 End: 04-16-2023 take 240 mL by mouth once 240 mL, oral, Once in imagin g, contrast, contrast, Starting on Sun04/16/23 at 0754, For 1 dose Start: 04-16-2023 End: 04-20-2023 take 250 mL by mouth once 250 mL, oral, Once in imagin g, contrast, contrast, Starting on Sun04/16/23 at 0754, For 1 dose Start: 04-16-2023 End: 04-20-2023 454 g, oral, Once in imaging , contrast, contrast, Starting on Sun04/16/23 at 0754, For 1 dose Start: 04-16-2023 End: 04-20-2023 take 700 mg by mouth once 700 mg, oral, Once in imagin g, contrast, contrast, Starting on Sun04/16/23 at 0754, For 1 dose Start: 04-16-2023 End: 04-20-2023 300 mL, oral, Once in imagin g, contrast, Liquid Polibar plus, Starting on Sun04/16/23 at 0754, For 1 dose Start: 04-16-2023 End: 04-20-2023 340 g, oral, Once in imaging , contrast, contrast, Starting on Sun04/16/23 at 0754, For 1 dose Start: 04-16-2023 End: 04-20-2023 176 g, oral, Once in imaging , contrast, contrast, Starting on Sun04/16/23 at 0754, For 1 dose Start: 04-16-2023 End: 04-20-2023 take 355 mL by mouth once 355 mL, oral, Once in imagin g, contrast, contrast, Starting on Sun04/16/23 at 0754, For 1 dose Start: 04-11-2023 End: 04-12-2023 148 g, oral, Once in imaging , contrast, contrast, Starting on Sun04/11/23 at 1841, For 1 dose Start: 04-11-2023 End: 04-12-2023 take 250 mL by mouth once 250 mL, oral, Once in imagin g, contrast, contrast, Starting on Sun04/11/23 at 1841, For 1 dose Start: 04-11-2023 End: 04-12-2023 take 230 mL by mouth once 230 mL, oral, Once in imagin g, contrast, contrast, Starting on Sun04/11/23 at 1841, For 1 dose Start: 04-11-2023 End: 04-12-2023 take 240 mL by mouth once 240 mL, oral, Once in imagin g, contrast, contrast, Starting on Sun04/11/23 at 1841, For 1 dose (1 source) Start: 04-15-2023 End: 04-15-2023 1 mg, intravenous, Once, On Sun04/15/23 at 1100, For 1 dose, Look-alike/sound-alike medication - verify indication for use. (1 source) Start: 04-10-2023 End: 04-10-2023 take 60 mL by mouth once 60 mL, oral, Once in imaging, contrast, Radiology, Starting on Sun04/10/23 at 0938, For 1 dose, Additional Imaging Orders (1 source) Start: 04-09-2023 End: 04-13-2023 200 mg, intravenous, at 440 mL/hr, Administer over 15 Minutes, Daily, First dose on Sun04/09/23 at 1445, For 5 days, Monitor patient for hypersensitivity reactions for at least 30 minutes after the infusion. AVOID the use of H1 antihistamines, such as diphenhydramine, as this may worsen hypersensitivity reactions. Have resuscitation equipment and medications available. (3 sources) Start: 04-09-2023 End: 04-20-2023 [Order 1 Start] Name: sodium phosphate 20 mmol in sodium chloride 0.9 % 250 mL IVPB Signed Summary: 20 mmol, intravenous, at 42.8 mL/hr, Administer over 6 Hours, As needed, for phosphorus level 2.3 mg/dL or less, Starting on Sun04/09/23 at 0817, Administer over 6 hours via dedicated line (peripheral line). If administered, recheck phosphorus level 4 hours after infusion complete. [Order 1 End] [Order 2 Start] Name: sodium phosphate 20 mmol in sodium chloride 0.9 % 100 mL IVPB Signed Summary: 20 mmol, intravenous, at 26.7 mL/hr, Administer over 4 Hours, As needed, for phosphorus level 2.3 mg/dL or less., Starting on Sun04/09/23 at 0817, Administer over 4 hours via dedicated line (central line). If administered, recheck phosphorus level 4 hours after infusion complete. Infuse using central line access. [Order 2 End] [Order 3 Start] Name: sod phos di, mono-K phos mono (K-PHOS NEUTRAL) 250 mg tablet 2 tablet Signed Summary: 2 tablet, oral, As needed, for phosphorus level 2.3 mg/dL or less., Starting on Sun04/09/23 at 0817, If dose administered, recheck phosphorus level 4 hours after last dose. Look-alike/sound-alike medication - verify indication for use. Give with a full glass of water. [Order 3 End] Start: 04-09-2023 End: 04-20-2023 take 20 mL intravenously every twelve hours [Order 1 Start] Name: Consult PICC nurse - Midline Signed Summary: Reason for consult? Insert PICC, Indication: Difficult Access, Blood Draws, Peripherally incompatible therapy, Number of Lumen(s): 2 Lumens, Reason for multiple lumens: multilple IV medications [Order 1 End] [Order 2 Start] Name: sodium chloride 0.9 % flush 20 mL Signed Summary: 20 mL, intravenous, Every 12 hours, First dose (after last modification) on Sun04/09/23 at 0100, PICC line. Administer 10 mL per lumen; 20 mL total (for double lumen flush) [Order 2 End] [Order 3 Start] Name: sodium chloride 0.9 % flush 20 mL Signed Summary: 20 mL, intravenous, As needed, line care, Starting on Sun04/08/23 at 1334, PICC line. Administer 10 mL to each lumen before and after each use. Administer 10 mL per lumen; 20 mL total (for double lumen flush) [Order 3 End] [Order 4 Start] Name: sodium chloride 0.9 % flush 40 mL Signed Summary: 40 mL, intravenous, As needed, line care, Starting on 04/08/23 at 1334, PICC line. Administer 20 mL to each lumen after lab draws, blood infusion, and meds known to precipitate. Administer 20 mL per lumen; 40 mL total (for double lumen flush) [Order 4 End] Start: 04-08-2023 End: 04-18-2023 take 150 mg intravenously every twelve hours 150 mg, intravenous, at 130 mL/hr, Administer over 30 Minutes, Every 12 hours, First dose on 04/08/23 at 1430 Problems Active Problems Problem Classification Problem Date Documented Da te Episodic/Chronic Abdominal hernia (10 sources) Hernia of abdominal cavity; Translations: [Other and unspecified ventral hernia with obstruction, without gangrene] Onset: 06-13-2021 10-18-2016 Episodic Cardiac dysrhythmias (1 source) Bradycardia, unspecified; Translations: [Bradycardia, unspecified] Onset: 04-08-2023 Episodic Developmental disorders (20 sources) Severe intellectual disability; Translations: [Severe intellectual disabilities] Onset: 10-20-2013 08-12-2018 Chronic Diverticulosis and diverticulitis (9 sources) Diverticulitis 10-18-2016 Chronic Epilepsy; convulsions (20 sources) Epilepsy; Translations: [Epilepsy, unspecified, not intractable, without status epilepticus] Onset: 12-14-2015 12-14-2015 Chronic Epilepsy; convulsions (20 sources) Seizure; Translations: [Unspecified convulsions] Onset: 10-18-2013 10-18-2013 Episodic Fluid and electrolyte disorders (10 sources) Dehydration; Translations: [Hypokalemia] Onset: 06-25-2022 10-18-2016 Episodic Gastrointestinal hemorrhage (2 sources) Melena; Translations: [Melena] Onset: 01-18-2023 Episodic Genitourinary symptoms and ill-defined conditions (9 sources) 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 Chronic Genitourinary symptoms and ill-defined conditions (9 sources) Nocturia 10-18-2018 Episodic Hyperplasia of prostate (20 sources) Benign prostatic hypertrophy with outflow obstruction; Translations: [Benign prostatic hyperplasia] Onset: 06-13-2021 10-18-2018 Chronic Intestinal obstruction without hernia (20 sources) Small bowel obstruction; Translations: [Unspecified intestinal obstruction, unspecified as to partial versus complete obstruction] Onset: 10-18-2013 10-22-2013 Episodic Nausea and vomiting (6 sources) Vomiting; Translations: [Vomiting, unspecified] Onset: 06-21-2022 Episodic Nutritional deficiencies (8 sources) Mild protein-calorie malnutrition; Translations: [Malnutrition (calorie)] Onset: 08-08-2016 Resolved: 09-06-2022 Chronic Osteoarthritis (2 sources) Unspecified osteoarthritis, unspecified site; Translations: [Osteoarthritis] Onset: 06-13-2021 02-15-2017 Chronic Other bone disease and musculoskeletal deformities (1 source) Osteopenia; Translations: [Other specified disorders of bone density and structure, unspecified site] 10-17-2017 Episodic Other connective tissue disease (1 source) Other symptoms and signs involving the musculoskeletal system; Translations: [Other musculoskeletal symptoms referable to limbs] 02-15-2017 Episodic Other gastrointestinal disorders (9 sources) History of bowel obstruction 10-18-2016 Episodic Other gastrointestinal disorders (4 sources) Dysphagia, unspecified; Translations: [DYSPHAGIA UNSPECIFIED] Onset: 10-04-2021 Episodic Other gastrointestinal disorders (1 source) Functional disorder of intestine; Translations: [Other specified functional intestinal disorders] Onset: 06-25-2022 Episodic Other gastrointestinal disorders (1 source) Diarrhea; Translations: [Diarrhea, unspecified] Onset: 11-08-2022 Episodic Other gastrointestinal disorders (2 sources) Personal history of other diseases of the digestive system; Translations: [Personal history of other diseases of the digestive system] Onset: 01-10-2023 Episodic Other inflammatory condition of skin (1 source) Seborrheic dermatitis; Translations: [Seborrheic dermatitis, unspecified] 01-01-2018 Episodic Other male genital disorders (9 sources) Hydrocele 10-18-2016 Episodic Other nervous system disorders (9 sources) H/O: brain disorder 10-18-2016 Episodic Other nervous system disorders (1 source) H/O: epilepsy; Translations: [Personal history of other diseases of the nervous system and sense organs] Episodic Other nervous system disorders (1 source) Impairment of balance; Translations: [Other abnormalities of gait and mobility] 02-15-2017 Episodic Other nutritional; endocrine; and metabolic disorders (1 source) Obesity; Translations: [Obesity, unspecified] 02-15-2017 Chronic Other nutritional; endocrine; and metabolic disorders (1 source) Delay in physiological development; Translations: [Unspecified lack of expected normal physiological development in childhood] Onset: 06-25-2022 Episodic Other screening for suspected conditions (not mental disorders or infectious disease) (2 sources) Encounter for screening for malignant neoplasm of prostate; Translations: [Encounter for screening for malignant neoplasm of prostate] Onset: 03-21-2023 Episodic Unclassified (1 source) Unspecified convulsions / R56.9(ICD-9) Onset: 10-11-2016 Unclassified (2 sources) Encounter for screening for malignant neoplasm of colon / Z12.11(ICD-9) Onset: 10-11-2016 Unclassified (1 source) Constipation, unspecified / K59.00(ICD-9) Onset: 10-11-2016 Unclassified (1 source) Unsp lack of expected normal physiol dev in childhood / R62.50(ICD-9) Onset: 10-11-2016 Unclassified (1 source) Third degree hemorrhoids / K64.2(ICD-9) Onset: 10-11-2016 Unclassified (1 source) Incisional hernia without obstruction or gangrene / K43.2(ICD-9) Onset: 10-11-2016 Unclassified (1 source) Obstructive sleep apnea (adult) (pediatric) / G47.33(ICD-9) Onset: 10-11-2016 Unclassified (1 source) Weakness / R53.1(ICD-9) Onset: 10-11-2016 Unclassified (1 source) History of falling / Z91.81(ICD-9) Onset: 10-11-2016 Unclassified (1 source) Hydrocele, unspecified / N43.3(ICD-9) Onset: 10-11-2016 Unclassified (2 sources) Other; Translations: [Other] Onset: 09-02-2022 Unclassified (1 source) ill Onset: 04-07-2023 Unclassified (1 source) EMS///Amol Brandon is a 68 year old male with MRDD with history of intussusception followed by multiple small bowel obstructions. Has small bowel obstruction on CT. Dr. Dave would like patient to ED to be evaluated, determination of medicine vs surgery admission. Nml vitals. WBC 12.9. H Onset: 04-08-2023 Past or Other Problems Problem Classification Problem Date Documented Da te Episodic/Chronic Abdominal pain (4 sources) Generalized abdominal pain; Translations: [GENERALIZED ABDOMINAL PAIN] Onset: 02-28-2021 Episodic Acute and unspecified renal failure (3 sources) Acute injury of kidney; Translations: [Acute kidney failure, unspecified] Onset: 05-09-2022 Episodic Allergic reactions (1 source) Eczema; Translations: [Dermatitis, unspecified] Onset: 04-03-2017 04-03-2017 Episodic Other aftercare (1 source) Other mcc (current) drug therapy; Translations: [OTH PRECISION DEVICES INSPECTOR/TESTER CURRENT DRUG THERAPY] Onset: 06-13-2021 Episodic Other aftercare (1 source) Post-discharge follow-up; Translations: [Encounter for follow-up examination after completed treatment for conditions other than malignant neoplasm] Onset: 12-10-2018 12-10-2018 Episodic Other circulatory disease (1 source) Respiratory crackles; Translations: [Other specified symptoms and signs involving the circulatory and respiratory systems] Onset: 11-12-2018 11-12-2018 Episodic Other diseases of kidney and ureters (2 sources) Other obstructive and reflux uropathy; Translations: [Other obstructive and reflux uropathy] Onset: 05-05-2022 Episodic Other ear and sense organ disorders (1 source) Hearing loss; Translations: [Unspecified hearing loss, unspecified ear] Resolved: 11-12-2018 11-12-2018 Chronic Other nervous system disorders (1 source) Personal history of other diseases of the nervous system and sense organs; Translations: [Personal history of other diseases of the nervous system and sense organs] Onset: 05-09-2022 Episodic Residual codes; unclassified (1 source) Acquired absence of other specified parts of digestive tract; Translations: [ACQ ABSENCE OTH PART DIGESTV TRACT] Onset: 06-13-2021 Episodic Unclassified (1 source) Encounter for screening for malignant neoplasm of colon; Translations: [Encounter for screening for malignant neoplasm of colon] Onset: 10-11-2016 Results Test Name Value Interpretation Reference Range Facility BASIC METABOLIC PANLon 04-20 Anion gap [Moles/Vol] 9 mmol/L Normal 5-15 [facility] Comment on above: Performed By: #### C BCA, BMP, 00606-1, 2777-1, 07645-1, FEPR, THYR, 2276-4, 2284-8, 2131-11 #### [facility] ([id number]) [address], [address] [place] [address] Calcium [Mass/Vol] 9.0 mg/dL Normal 8.5-10.5 [facility] Comment on above: Performed By: #### C BCA, BMP, 31127-2, 2777-1, 80525-9, FEPR, THYR, 2276-4, 2284-8, 2131-11 #### [facility] ([id number]) [address], [address] [place] [address] Chloride [Moles/Vol] 108 mmol/L Normal 98-109 [facility] Comment on above: Performed By: #### C BCA, BMP, 58647-7, 7-1, 58472-1, FEPR, THYR, 2276-4, 2284-8, 2131-11 #### [facility] ([id number]) [address], [address] [place] [address] CO2 [Moles/Vol] 20 mmol/L Low 22-32 [facility] Comment on above: Performed By: #### C BCA, BMP, 74459-3, 2776-1, 92562-2, FEPR, THYR, 2276-4, 2284-8, 2131-11 #### [facility] ([id number]) [address], [address] [place] [address] Creatinine [Mass/Vol] 0.83 mg/dL Normal 0.60-1.30 [facility] Comment on above: Result Comment: METH OD TRACEABLE TO IDMS STANDARD Performed By: #### C BCA, BMP, 04179-6, 2777-1, 83079-6, FEPR, THYR, 2276-4, 2284-8, 2131-11 #### [facility] ([id number]) [address], [address] [place] [address] eGFR (CKD-EPI) NON-RACE DEPENDENT >90 Normal >59 [facility] Comment on above: Result Comment: Reported eGFR is based on the CKD-EPI 2020 equation that does not use a race coefficient. Performed By: #### C BCA, BMP, 51254-5, 2777-1, 69993-7, FEPR, THYR, 2276-4, 2284-8, 2131-11 #### [facility] ([id number]) [address], [address] [place] [address] Glucose [Mass/Vol] 74 mg/dL Normal 65-99 [facility] Comment on above: Performed By: #### C BCA, BMP, 36452-3, 7-1, 66352-5, FEPR, THYR, 2276-4, 2284-8, 2131-11 #### [facility] ([id number]) [address], [address] [place] [address] Potassium [Moles/Vol] 5.0 mmol/L Normal 3.5-5.0 [facility] Comment on above: Performed By: #### C BCA, BMP, 45600-7, 7-1, 38449-1, FEPR, THYR, 2276-4, 2284-8, 2131-11 #### [facility] ([id number]) [address], [address] [place] [address] Sodium [Moles/Vol] 137 mmol/L Normal 134-146 [facility] Comment on above: Performed By: #### C BCA, BMP, 50882-9, 2777-1, 18551-4, FEPR, THYR, 2276-4, 2284-8, 9 #### [facility] ([id number]) [address], [address] [place] [address] Urea nitrogen [Mass/Vol] 20 mg/dL Normal 5-27 [facility] Comment on above: Performed By: #### C UMER ESTRADA, , 2776-03, , FEPR, THYR, 6-4, 4-8, 2131-11 #### [facility] ([id number]) [address] [place] [address] Basic Metabolic Panelon 04-05 Anion gap [Moles/Vol] 9 mmol/L 5 - 15 mmol/L [facility] Calcium [Mass/Vol] 9.0 mg/dL 8.5 - 10. 5 mg/dL [facility] Chloride [Moles/Vol] 108 mmol/L 98 - 10 9 mmol/L [facility] CO2 [Moles/Vol] 20 mmol/L Low 22 - 32 mmol/L [facility] Creatinine [Mass/Vol] 0.83 mg/dL 0.60 - 1.30 mg/dL [facility] eGFR (CKD-EPI)non-race dependent - PINF [facility] Glucose [Mass/Vol] 74 mg/dL 65 - 99 mg/dL [facility] Interpretation and review of laboratory results Abnormal [facility] Potassium [Moles/Vol] 5.0 mmol/L 3.5 - 5.0 mmol/L [facility] Sodium [Moles/Vol] 137 mmol/L 134 - 146 mmol/L [facility] Urea nitrogen [Mass/Vol] 20 mg/dL 5 - 27 mg/dL [facility] CBC AND AUTO DIFFon 04-20-19 24 ABSOLUTE BASOPHIL 0.1 X10E9/L Normal 0.0-0.2 [facility] Comment on above: Performed By: #### C SEAN, UMER, , 2776-03, , FEPR, THYR, 6-4, 2283-8, 2131-11 #### [facility] ([id number]) [address] [place] [address] ABSOLUTE NEUTROPHIL 4.6 X10E9/L Normal 1.5-6.6 [facility] Comment on above: Performed By: #### C BCA, BMP, 32720-4, 7-1, 13301-5, FEPR, THYR, 2276-4, 2284-8, 2131-11 #### [facility] ([id number]) [address], [address] [place] [address] Basophils/100 WBC (Bld) 1.0 % Normal [facility] Comment on above: Performed By: #### C BCA, BMP, 30329-2, 2776-, 44327-8, FEPR, THYR, 2276-4, 2284-8, 2131-11 #### [facility] ([id number]) [address], [address] [place] [address] Eosinophils (Bld) [#/Vol] 0.3 10*3/uL Normal 0.0-0.4 [facility] Comment on above: Performed By: #### C BCA, BMP, 22814-2, 2776-, 63449-0, FEPR, THYR, 2276-4, 2284-8, 2131-11 #### [facility] ([id number]) [address], [address] [place] [address] Eosinophils/100 WBC (Bld) 3.9 % Normal [facility] Comment on above: Performed By: #### C BCA, BMP, 32067-4, 2776-, 72393-9, FEPR, THYR, 2276-4, 2284-8, 2131-11 #### [facility] ([id number]) [address], [address] [place] [address] Erythrocyte distribution width (RBC) [Ratio] 13.6 % Normal 11.5-15.0 [facility] Comment on above: Performed By: #### C BCA, BMP, 30026-1, 2776-, 42190-4, FEPR, THYR, 2276-4, 2284-8, 2131-11 #### [facility] ([id number]) [address], [address] [place] [address] Hematocrit (Bld) [Volume fraction] 34.5 % Low 39-49 [facility] Comment on above: Performed By: #### C BCA, BMP, 60923-6, 7-1, 82956-7, FEPR, THYR, 2276-4, 2283-8, 2131-11 #### [facility] ([id number]) [address], [address] [place] [address] Hemoglobin (Bld) [Mass/Vol] 11.6 g/dL Low 13.0-17.0 [facility] Comment on above: Performed By: #### C BCA, BMP, 15157-0, 2776-, 10335-5, FEPR, THYR, 6-4, 2283-8, 2131-11 #### [facility] ([id number]) [address], [address] [place] [address] Lymphocytes (Bld) [#/Vol] 1.8 10*3/uL Normal 1.0-3.5 [facility] Comment on above: Performed By: #### C BCA, BMP, 43014-8, 2776-1, 03683-0, FEPR, THYR, 6-4, 2283-8, 2131-11 #### [facility] ([id number]) [address], [address] [place] [address] Lymphocytes/100 WBC (Bld) 24.6 % Normal [facility] Comment on above: Performed By: #### C BCA, BMP, 13982-9, 2776-, 22264-9, FEPR, THYR, 6-4, 2283-8, 2131-11 #### [facility] ([id number]) [address], [address] [place] [address] MCH (RBC) [Entitic mass] 33.6 pg Normal 27-34 [facility] Comment on above: Performed By: #### C BCA, BMP, 00229-5, 2777-1, 26821-9, FEPR, THYR, 2276-4, 2284-8, 2131-11 #### [facility] ([id number]) [address], [address] [place] [address] MCHC (RBC) [Mass/Vol] 33.7 g/dL Normal 32-36 [facility] Comment on above: Performed By: #### C BCA, BMP, 68542-4, 7-1, 37812-7, FEPR, THYR, 2276-4, 228-8, 2131-11 #### [facility] ([id number]) [address], [address] [place] [address] MCV (RBC) [Entitic vol] 100 fL Normal 80-100 [facility] Comment on above: Performed By: #### C BCA, BMP, 58300-1, 2776-1, 37730-2, FEPR, THYR, 2276-4, 2283-8, 2131-11 #### [facility] ([id number]) [address], [address] [place] [address] Monocytes (Bld) [#/Vol] 0.6 10*3/uL Normal 0-0.9 [facility] Comment on above: Performed By: #### C BCA, BMP, 02460-1, 2776-1, 94570-8, FEPR, THYR, 2276-4, 2283-8, 2131-11 #### [facility] ([id number]) [address], [address] [place] [address] Monocytes/100 WBC (Bld) 8.5 % Normal [facility] Comment on above: Performed By: #### C BCA, BMP, 17873-5, 2776-1, 59999-1, FEPR, THYR, 2276-4, 2284-8, 2131-11 #### [facility] ([id number]) [address], [address] [place] [address] Neutrophils/100 WBC (Bld) 62.0 % Normal [facility] Comment on above: Performed By: #### C BCA, BMP, 96023-1, 2777-1, 99894-7, FEPR, THYR, 2276-4, 2284-8, 2131-11 #### [facility] ([id number]) [address], [address] [place] [address] Platelet mean volume (Bld) [Entitic vol] 7.3 fL Normal 7-12 [facility] Comment on above: Performed By: #### C BCA, BMP, 76823-2, 7-1, 28260-4, FEPR, THYR, 2276-4, 2283-8, 2131-11 #### [facility] ([id number]) [address], [address] [place] [address] Platelets (Bld) [#/Vol] 245 10*3/uL Normal 150-450 [facility] Comment on above: Performed By: #### C BCA, BMP, 06850-0, 7-1, 08069-8, FEPR, THYR, 2276-4, 2283-8, 2131-11 #### [facility] ([id number]) [address], [address] [place] [address] RBC COUNT 3.45 X10E12/L Low 4.10-5.70 [facility] Comment on above: Performed By: #### C BCA, BMP, 86135-8, 2777-1, 27617-1, FEPR, THYR, 2276-4, 4-8, 2131-11 #### [facility] ([id number]) [address], [address] [place] [address] WBC (Bld) [#/Vol] 7.4 10*3/uL Normal 4.0-11.0 [facility] Comment on above: Performed By: #### C BCA, BMP, 87084-9, 5567-1, 04481-7, FEPR, THYR, 2276-4, 2284-8, 2132-9 #### [facility] ([id number]) [address], [address] [place] [address] CBC auto differentialon 04-05 Basophils (Bld) [#/Vol] 0.1 10*3/uL [facility] Basophils/100 WBC (Bld) 1.0 % [facility] Eosinophils (Bld) [#/Vol] 0.3 10*3/uL [facility] Eosinophils/100 WBC (Bld) 3.9 % [facility] Erythrocyte distribution width (RBC) [Ratio] 13.6 % 11.5 - 15.0 % [facility] Hematocrit (Bld) [Volume fraction] 34.5 % Low 39 - 49 % [facility] Hemoglobin (Bld) [Mass/Vol] 11.6 g/dL Low 13.0 - 17.0 g/dL [facility] Interpretation and review of laboratory results Abnormal [facility] Lymphocytes (Bld) [#/Vol] 1.8 10*3/uL [facility] Lymphocytes/100 WBC (Bld) 24.6 % [facility] MCH (RBC) [Entitic mass] 33.6 pg 27 - 34 pg [facility] MCHC (RBC) [Mass/Vol] 33.7 g/dL 32 - 3 6 g/dL [facility] MCV (RBC) [Entitic vol] 100 fL 80 - 100 fL [facility] Monocytes (Bld) [#/Vol] 0.6 10*3/uL [facility] Monocytes/100 WBC (Bld) 8.5 % [facility] Neutrophils (Bld) [#/Vol] 4.6 10*3/uL [facility] Neutrophils/100 WBC (Bld) 62.0 % [facility] Platelet mean volume (Bld) [Entitic vol] 7.3 fL 7 - 12 [facility] Platelets (Bld) [#/Vol] 245 10*3/uL [facility] RBC (Bld) [#/Vol] 3.45 10*6/uL Low [facility] WBC corrected for nucl RBC Auto (Bld) [#/Vol] 7.4 [facility] MAGNESIUMon 04-20-2023 Magnesium [Mass/Vol] 1.9 mg/dL Normal 1.8-2.6 [facility] Comment on above: Performed By: #### C BCA, BMP, 76835-3, 2776-1, 34502-2, FEPR, THYR, 2276-4, 2283-8, 2131-11 #### [facility] ([id number]) [address] [place] [address] Magnesiumon 04-20-2023 Magnesium [Mass/Vol] 1.9 mg/dL 1.8 - 2 .6 mg/dL [facility] No Panel Informationon 04-20 [facility] Acetone, (BetaHydroxybutyrat e, Ketone) quantitative, serumon 04-19-2023 Beta hydroxybutyrate [Moles/Vol] mmol/L 0.02 - 0.27 mmol/L [facility] BASIC METABOLIC PANLon 04-19 Anion gap [Moles/Vol] 7 mmol/L Normal 5-15 [facility] Comment on above: Performed By: #### C BCA, BMP, 50241-0, 2776-1, 19035-9, FEPR, THYR, 6-4, 4-8, 2131-11 #### [facility] ([id number]) [address], [address] [place] [address] Calcium [Mass/Vol] 8.6 mg/dL Normal 8.5-10.5 [facility] Comment on above: Performed By: #### C BCA, BMP, 57202-9, 7-1, 78983-0, FEPR, THYR, 2276-4, 2284-8, 2131-11 #### [facility] ([id number]) [address] [place] [address] Chloride [Moles/Vol] 111 mmol/L High 98-109 [facility] Comment on above: Performed By: #### C BCA, BMP, 09415-0, 7-1, 83875-4, FEPR, THYR, 2276-4, 2284-8, 9 #### [facility] ([id number]) [address] [place] [address] CO2 [Moles/Vol] 22 mmol/L Normal 22-32 [facility] Comment on above: Performed By: #### C BCA, BMP, 76622-1, 7-1, 11467-2, FEPR, THYR, 2276-4, 2284-8, 2131-11 #### [facility] ([id number]) [address], [address] [place] [address] Creatinine [Mass/Vol] 0.71 mg/dL Normal 0.60-1.30 [facility] Comment on above: Result Comment: METH OD TRACEABLE TO IDMS STANDARD Performed By: #### C BCA, BMP, 04939-7, 7-1, 46118-8, FEPR, THYR, 2276-4, 2284-8, 2131-11 #### [facility] ([id number]) [address] [place] [address] eGFR (CKD-EPI) NON-RACE DEPENDENT >90 Normal >59 [facility] Comment on above: Result Comment: Reported eGFR is based on the CKD-EPI 2020 equation that does not use a race coefficient. Performed By: #### C BCA, BMP, 34132-4, 7-1, 03039-2, FEPR, THYR, 2276-4, 2284-8, 9 #### [facility] ([id number]) [address] [place] [address] Glucose [Mass/Vol] 99 mg/dL Normal 65-99 [facility] Comment on above: Performed By: #### C BCA, BMP, 09611-9, 2777-1, 84752-2, FEPR, THYR, 2276-4, 2284-8, 2131-11 #### [facility] ([id number]) [address], [address] [place] [address] Potassium [Moles/Vol] 4.6 mmol/L Normal 3.5-5.0 [facility] Comment on above: Performed By: #### C BCA, BMP, 50683-8, 7-1, 72338-1, FEPR, THYR, 2276-4, 2284-8, 2131-11 #### [facility] ([id number]) [address], [address] [place] [address] Sodium [Moles/Vol] 140 mmol/L Normal 134-146 [facility] Comment on above: Performed By: #### C BCA, BMP, 06015-5, 7-1, 17561-5, FEPR, THYR, 2276-4, 2284-8, 2131-11 #### [facility] ([id number]) [address], [address] [place] [address] Urea nitrogen [Mass/Vol] 17 mg/dL Normal 5-27 [facility] Comment on above: Performed By: #### C BCA, BMP, 19045-8, 7-1, 32631-9, FEPR, THYR, 2276-4, 2284-8, 2131-11 #### [facility] ([id number]) [address], [address] [place] [address] Anion gap [Moles/Vol] 6 mmol/L Normal 5-15 [facility] Comment on above: Performed By: #### C BCA, BMP, 10530-5, 2777-1, 35902-8, FEPR, THYR, 2276-4, 2284-8, 2131-11 #### [facility] ([id number]) [address] [place] [address] Calcium [Mass/Vol] 8.6 mg/dL Normal 8.5-10.5 [facility] Comment on above: Performed By: #### C BCA, BMP, 05348-4, 2777-1, 61067-6, FEPR, THYR, 2276-4, 2284-8, 2131-11 #### [facility] ([id number]) [address] [place] [address] Chloride [Moles/Vol] 111 mmol/L High 98-109 [facility] Comment on above: Performed By: #### C BCA, BMP, 06586-5, 7-1, 81694-3, FEPR, THYR, 6-4, 2283-8, 2131-11 #### [facility] ([id number]) [address] [place] [address] CO2 [Moles/Vol] 20 mmol/L Low 22-32 [facility] Comment on above: Performed By: #### C BCA, BMP, 52709-9, 7-1, 35409-8, FEPR, THYR, 2276-4, 2283-8, 2131-11 #### [facility] ([id number]) [address], [address] [place] [address] Creatinine [Mass/Vol] 0.70 mg/dL Normal 0.60-1.30 [facility] Comment on above: Result Comment: METH OD TRACEABLE TO IDMS STANDARD Performed By: #### C BCA, BMP, 15791-5, 2777-1, 25746-1, FEPR, THYR, 2276-4, 2284-8, 2131-11 #### [facility] ([id number]) [address] [place] [address] Glucose [Mass/Vol] 90 mg/dL Normal 65-99 [facility] Comment on above: Performed By: #### C BCA, BMP, 51187-2, 2777-1, 43365-0, FEPR, THYR, 2276-4, 2284-8, 2131-11 #### [facility] ([id number]) [address], [address] [place] [address] Potassium [Moles/Vol] 5.0 mmol/L Normal 3.5-5.0 [facility] Comment on above: Performed By: #### C BCA, BMP, 05847-1, 7-1, 45217-8, FEPR, THYR, 2276-4, 2284-8, 2131-11 #### [facility] ([id number]) [address], [address] [place] [address] Sodium [Moles/Vol] 137 mmol/L Normal 134-146 [facility] Comment on above: Performed By: #### C BCA, BMP, 73762-5, 7-1, 41399-3, FEPR, THYR, 2276-4, 2284-8, 2131-11 #### [facility] ([id number]) [address], [address] [place] [address] Urea nitrogen [Mass/Vol] 18 mg/dL Normal 5-27 [facility] Comment on above: Performed By: #### C BCA, BMP, 68596-0, 7-1, 73902-4, FEPR, THYR, 2276-4, 2284-8, 2131-11 #### [facility] ([id number]) [address], [address] [place] [address] Basic Metabolic Panelon 04-05 Anion gap [Moles/Vol] 7 mmol/L 5 - 15 mmol/L [facility] Calcium [Mass/Vol] 8.6 mg/dL 8.5 - 10. 5 mg/dL [facility] Chloride [Moles/Vol] 111 mmol/L High 98 - 10 9 mmol/L [facility] CO2 [Moles/Vol] 22 mmol/L 22 - 32 mmol/L [facility] Creatinine [Mass/Vol] 0.71 mg/dL 0.60 - 1.30 mg/dL [facility] eGFR (CKD-EPI)non-race dependent - PINF [facility] Glucose [Mass/Vol] 99 mg/dL 65 - 99 mg/dL [facility] Interpretation and review of laboratory results Abnormal [facility] Potassium [Moles/Vol] 4.6 mmol/L 3.5 - 5.0 mmol/L [facility] Sodium [Moles/Vol] 140 mmol/L 134 - 146 mmol/L [facility] Urea nitrogen [Mass/Vol] 17 mg/dL 5 - 27 mg/dL [facility] eGFR (CKD-EPI)non-race dependent - PINF [facility] Beta hydroxybutyrate [Moles/ Vol]on 04-19-2023 BetaHydroxybutyrate <0.10 Normal 0.02-0.27 [facility] Comment on above: Performed By: #### C BCA, BMP, , 2776-, 71156-5, FEPR, THYR, 2276-4, 2284-8, 2131-11 #### [facility] [facility] ([id number]) [address] [place] [address] [facility] CBC AND AUTO DIFFon 04-19-19 24 ABSOLUTE BASOPHIL 0.0 X10E9/L Normal 0.0-0.2 [facility] Comment on above: Performed By: #### C BCA, BMP, , 2776-, 63015-3, FEPR, THYR, 2276-4, 2284-8, 2131-11 #### [facility] ([id number]) [address] [place] [address] ABSOLUTE NEUTROPHIL 5.2 X10E9/L Normal 1.5-6.6 [facility] Comment on above: Performed By: #### C BCA, BMP, , 2776-, 83414-8, FEPR, THYR, 2276-4, 2284-8, 2131-11 #### [facility] ([id number]) [address], [address] [place] [address] RBC COUNT 3.10 X10E12/L Low 4.10-5.70 [facility] Comment on above: Performed By: #### C BCA, BMP, 17411-2, 7-1, 93602-9, FEPR, THYR, 2276-4, 2284-8, 2131-11 #### [facility] ([id number]) [address] [place] [address] WBC (Bld) [#/Vol] 8.0 10*3/uL Normal 4.0-11.0 [facility] Comment on above: Performed By: #### C BCA, BMP, 66659-8, 2776-1, 45219-8, FEPR, THYR, 2276-4, 2284-8, 2131-11 #### [facility] ([id number]) [address] [place] [address] Basophils/100 WBC (Bld) 0.5 % Normal [facility] Comment on above: Performed By: #### C BCA, BMP, 24018-8, 2776-1, 50328-8, FEPR, THYR, 2276-4, 2284-8, 2131-11 #### [facility] ([id number]) [address], [address] [place] [address] Eosinophils (Bld) [#/Vol] 0.4 10*3/uL Normal 0.0-0.4 [facility] Comment on above: Performed By: #### C BCA, BMP, 53598-7, 2776-1, 79186-2, FEPR, THYR, 2276-4, 2284-8, 2131-11 #### [facility] ([id number]) [address], [address] [place] [address] Eosinophils/100 WBC (Bld) 5.2 % Normal [facility] Comment on above: Performed By: #### C BCA, BMP, 87171-7, 7-1, 25038-6, FEPR, THYR, 2276-4, 2284-8, 2131-11 #### [facility] ([id number]) [address] [place] [address] Erythrocyte distribution width (RBC) [Ratio] 13.7 % Normal 11.5-15.0 [facility] Comment on above: Performed By: #### C BCA, BMP, 84384-3, 7-1, 38799-7, FEPR, THYR, 2276-4, 2284-8, 2131-11 #### [facility] ([id number]) [address], [address] [place] [address] Hematocrit (Bld) [Volume fraction] 31.0 % Low 39-49 [facility] Comment on above: Performed By: #### C BCA, BMP, 95497-4, 2776-1, 88123-4, FEPR, THYR, 2276-4, 2283-8, 2131-11 #### [facility] ([id number]) [address] [place] [address] Hemoglobin (Bld) [Mass/Vol] 10.4 g/dL Low 13.0-17.0 [facility] Comment on above: Performed By: #### C BCA, BMP, 93885-4, 2776-1, 12714-1, FEPR, THYR, 2276-4, 2284-8, 2131-11 #### [facility] ([id number]) [address] [place] [address] Lymphocytes (Bld) [#/Vol] 1.7 10*3/uL Normal 1.0-3.5 [facility] Comment on above: Performed By: #### C BCA, BMP, 34425-2, 2776-1, 53248-8, FEPR, THYR, 2276-4, 2284-8, 2131-11 #### [facility] ([id number]) [address] [place] [address] Lymphocytes/100 WBC (Bld) 20.8 % Normal [facility] Comment on above: Performed By: #### C BCA, BMP, 18357-0, 7-1, 34544-0, FEPR, THYR, 2276-4, 2284-8, 2131-11 #### [facility] ([id number]) [address], [address] [place] [address] MCH (RBC) [Entitic mass] 33.5 pg Normal 27-34 [facility] Comment on above: Performed By: #### C BCA, BMP, 07677-8, 7-1, 07424-6, FEPR, THYR, 2276-4, 2283-8, 2131-11 #### [facility] ([id number]) [address], [address] [place] [address] MCHC (RBC) [Mass/Vol] 33.5 g/dL Normal 32-36 [facility] Comment on above: Performed By: #### C BCA, BMP, 21112-7, 7-1, 66624-5, FEPR, THYR, 2276-4, 2283-8, 2131-11 #### [facility] ([id number]) [address], [address] [place] [address] MCV (RBC) [Entitic vol] 100 fL Normal 80-100 [facility] Comment on above: Performed By: #### C BCA, BMP, 06083-5, 7-1, 48711-7, FEPR, THYR, 2276-4, 4-8, 2131-11 #### [facility] ([id number]) [address], [address] [place] [address] Monocytes (Bld) [#/Vol] 0.7 10*3/uL Normal 0-0.9 [facility] Comment on above: Performed By: #### C BCA, BMP, 71830-4, 2777-1, 41464-8, FEPR, THYR, 2276-4, 2284-8, 2131-11 #### [facility] ([id number]) [address], [address] [place] [address] Monocytes/100 WBC (Bld) 8.7 % Normal [facility] Comment on above: Performed By: #### C BCA, BMP, 82905-7, 2777-1, 40341-2, FEPR, THYR, 2276-4, 2284-8, 2131-11 #### [facility] ([id number]) [address], [address] [place] [address] Neutrophils/100 WBC (Bld) 64.8 % Normal [facility] Comment on above: Performed By: #### C BCA, BMP, 80787-9, 7-1, 21813-9, FEPR, THYR, 2276-4, 2284-8, 2131-11 #### [facility] ([id number]) [address], [address] [place] [address] Platelet mean volume (Bld) [Entitic vol] 6.9 fL Low 7-12 [facility] Comment on above: Performed By: #### C BCA, BMP, 19899-4, 2777-1, 44149-4, FEPR, THYR, 2276-4, 2284-8, 2131-11 #### [facility] ([id number]) [address], [address] [place] [address] Platelets (Bld) [#/Vol] 232 10*3/uL Normal 150-450 [facility] Comment on above: Performed By: #### C BCA, BMP, 36459-5, 2777-1, 65843-4, FEPR, THYR, 2276-4, 2284-8, 2131-11 #### [facility] ([id number]) [address], [address] [place] [address] CBC auto differentialon 04-05 Basophils (Bld) [#/Vol] 0.0 10*3/uL [facility] Interpretation and review of laboratory results Abnormal [facility] Neutrophils (Bld) [#/Vol] 5.2 10*3/uL [facility] RBC (Bld) [#/Vol] 3.10 10*6/uL Low [facility] WBC corrected for nucl RBC Auto (Bld) [#/Vol] 8.0 [facility] - Chemistry and C hemistry - challengeon 04-19-2023 Magnesium [Mass/Vol] 1.7 mg/dL Low 1.8-2.6 [facility] Comment on above: Performed By: #### C BCA, BMP, 78103-4, 2776-1, 23585-0, FEPR, THYR, 6-4, 2283-8, 2131-11 #### [facility] ([id number]) [address] [place] [address] Phosphate [Mass/Vol] 3.0 mg/dL Normal 2.4-4.9 [facility] Comment on above: Result Comment: SPEC IMEN HEMOLYZED, RESULTS INCREASED SLIGHTLY HEMOLYZED Performed By: #### C BCA, BMP, 24548-2, 2776-1, 12668-2, FEPR, THYR, 6-4, 2283-8, 2131-11 #### [facility] ([id number]) [address] [place] [address] Lactate (P simon) [Moles/Vol]o n 04-19-2023 LACTATE W/REFLEX 0.6 mmol/L Normal 0.4-2.0 [facility] Comment on above: Result Comment: Result did not trigger repeat Lactate, re-order if needed. Performed By: #### C BCA, BMP, 32948-8, 7-1, 16477-8, FEPR, THYR, 2276-4, 2283-8, 2131-11 #### [facility] ([id number]) [address], [address] [place] [address] [facility] Lactate w/ Reflexon 04-19-19 24 Lactate (P simon) [Moles/Vol] 0.6 mmol/L 0.4 - 2.0 mmol/L [facility] No Panel Informationon 04-19 Interpretation and review of laboratory results Abnormal [facility] BASIC METABOLIC PANLon 04-18 Anion gap [Moles/Vol] 9 mmol/L Normal 5-15 [facility] Comment on above: Performed By: #### C BCA, BMP, 41965-9, 2776-1, 84865-5, FEPR, THYR, 6-4, 2283-8, 2131-11 #### [facility] ([id number]) [address], [address] [place] [address] Calcium [Mass/Vol] 8.5 mg/dL Normal 8.5-10.5 [facility] Comment on above: Performed By: #### C BCA, BMP, 28637-0, 2776-1, 91366-9, FEPR, THYR, 2276-4, 2283-8, 2131-11 #### [facility] ([id number]) [address] [place] [address] Chloride [Moles/Vol] 108 mmol/L Normal 98-109 [facility] Comment on above: Performed By: #### C BCA, BMP, 72320-1, 2776-1, 85128-2, FEPR, THYR, 6-4, 2283-8, 2131-11 #### [facility] ([id number]) [address], [address] [place] [address] CO2 [Moles/Vol] 26 mmol/L Normal 22-32 [facility] Comment on above: Performed By: #### C BCA, BMP, 91932-2, 2776-1, 92127-3, FEPR, THYR, 2276-4, 2284-8, 9 #### [facility] ([id number]) [address], [address] [place] [address] Creatinine [Mass/Vol] 0.65 mg/dL Normal 0.60-1.30 [facility] Comment on above: Result Comment: METH OD TRACEABLE TO IDMS STANDARD Performed By: #### C BCA, BMP, 66141-3, 7-1, 80379-8, FEPR, THYR, 2276-4, 2284-8, 2131-11 #### [facility] ([id number]) [address] [address] eGFR (CKD-EPI) NON-RACE DEPENDENT >90 Normal >59 [facility] Comment on above: Result Comment: Reported eGFR is based on the CKD-EPI 2020 equation that does not use a race coefficient. Performed By: #### C BCA, BMP, 08694-0, 2776-1, 39337-2, FEPR, THYR, 2276-4, 2284-8, 2131-11 #### [facility] ([id number]) [address] [address] Glucose [Mass/Vol] 93 mg/dL Normal 65-99 [facility] Comment on above: Performed By: #### C BCA, BMP, 21975-0, 2776-1, 40580-1, FEPR, THYR, 2276-4, 2284-8, 2131-11 #### [facility] ([id number]) [address], [address] [place] [address] Potassium [Moles/Vol] 4.6 mmol/L Normal 3.5-5.0 [facility] Comment on above: Performed By: #### C BCA, BMP, 08146-5, 7-1, 57481-3, FEPR, THYR, 2276-4, 2284-8, 9 #### [facility] ([id number]) [address] [place] [address] Sodium [Moles/Vol] 143 mmol/L Normal 134-146 [facility] Comment on above: Performed By: #### C BCA, BMP, 11430-4, 2777-1, 65716-9, FEPR, THYR, 2276-4, 2284-8, 9 #### [facility] ([id number]) [address], [address] [place] [address] Urea nitrogen [Mass/Vol] 19 mg/dL Normal 5-27 [facility] Comment on above: Performed By: #### C BCA, BMP, 24936-9, 2777-1, 75921-0, FEPR, THYR, 2276-4, 2284-8, 9 #### [facility] ([id number]) [address] [place] [address] Basic Metabolic Panelon 04-05 Anion gap [Moles/Vol] 9 mmol/L 5 - 15 mmol/L [facility] Calcium [Mass/Vol] 8.5 mg/dL 8.5 - 10. 5 mg/dL [facility] Chloride [Moles/Vol] 108 mmol/L 98 - 10 9 mmol/L [facility] CO2 [Moles/Vol] 26 mmol/L 22 - 32 mmol/L [facility] Creatinine [Mass/Vol] 0.65 mg/dL 0.60 - 1.30 mg/dL [facility] eGFR (CKD-EPI)non-race dependent - PINF [facility] Glucose [Mass/Vol] 93 mg/dL 65 - 99 mg/dL [facility] Potassium [Moles/Vol] 4.6 mmol/L 3.5 - 5.0 mmol/L [facility] Sodium [Moles/Vol] 143 mmol/L 134 - 146 mmol/L [facility] Urea nitrogen [Mass/Vol] 19 mg/dL 5 - 27 mg/dL [facility] CBC AND AUTO DIFFon 02-14-20 24 ABSOLUTE BASOPHIL 0.0 X10E9/L Normal 0.0-0.2 [facility] Comment on above: Performed By: #### C BCA, BMP, 51443-8, 2776-1, 12586-4, FEPR, THYR, 2276-4, 2284-8, 2131-11 #### [facility] ([id number]) [address], [address] [place] [address] ABSOLUTE NEUTROPHIL 6.1 X10E9/L Normal 1.5-6.6 [facility] Comment on above: Performed By: #### C BCA, BMP, 70978-9, 2776-, 88363-8, FEPR, THYR, 2276-4, 4-8, 2131-11 #### [facility] ([id number]) [address] [place] [address] Basophils/100 WBC (Bld) 0.5 % Normal [facility] Comment on above: Performed By: #### C BCA, BMP, 67679-8, 2776-, 19975-9, FEPR, THYR, 6-4, 2283-8, 2131-11 #### [facility] ([id number]) [address] [place] [address] Eosinophils (Bld) [#/Vol] 0.3 10*3/uL Normal 0.0-0.4 [facility] Comment on above: Performed By: #### C BCA, BMP, 05284-5, 2776-, 31889-1, FEPR, THYR, 2276-4, 4-8, 2131-11 #### [facility] ([id number]) [address] [place] [address] Eosinophils/100 WBC (Bld) 3.3 % Normal [facility] Comment on above: Performed By: #### C BCA, BMP, 35785-7, 2776-, 63045-4, FEPR, THYR, 2276-4, 2284-8, 2131-11 #### [facility] ([id number]) [address] [place] [address] Erythrocyte distribution width (RBC) [Ratio] 13.5 % Normal 11.5-15.0 [facility] Comment on above: Performed By: #### C BCA, BMP, 99244-1, 7-1, 28561-5, FEPR, THYR, 2276-4, 2284-8, 2131-11 #### [facility] ([id number]) [address] [place] [address] Hematocrit (Bld) [Volume fraction] 32.4 % Low 39-49 [facility] Comment on above: Performed By: #### C BCA, BMP, 26108-3, 7-1, 16022-1, FEPR, THYR, 2276-4, 2284-8, 2131-11 #### [facility] ([id number]) [address] [place] [address] Hemoglobin (Bld) [Mass/Vol] 10.9 g/dL Low 13.0-17.0 [facility] Comment on above: Performed By: #### C BCA, BMP, 61100-8, 7-1, 81597-8, FEPR, THYR, 2276-4, 2284-8, 2131-11 #### [facility] ([id number]) [address] [place] [address] Lymphocytes (Bld) [#/Vol] 1.6 10*3/uL Normal 1.0-3.5 [facility] Comment on above: Performed By: #### C BCA, BMP, 97625-7, 7-1, 21823-9, FEPR, THYR, 2276-4, 2284-8, 2131-11 #### [facility] ([id number]) [address] [place] [address] Lymphocytes/100 WBC (Bld) 17.6 % Normal [facility] Comment on above: Performed By: #### C BCA, BMP, 92216-0, 7-1, 86760-3, FEPR, THYR, 2276-4, 2284-8, 2131-11 #### [facility] ([id number]) [address], [address] [place] [address] MCH (RBC) [Entitic mass] 33.1 pg Normal 27-34 [facility] Comment on above: Performed By: #### C BCA, BMP, 69396-8, 2776-1, 38791-4, FEPR, THYR, 2276-4, 2284-8, 2131-11 #### [facility] ([id number]) [address], [address] [place] [address] MCHC (RBC) [Mass/Vol] 33.7 g/dL Normal 32-36 [facility] Comment on above: Performed By: #### C BCA, BMP, 85975-8, 2776-1, 15126-7, FEPR, THYR, 2276-4, 4-8, 2131-11 #### [facility] ([id number]) [address], [address] [place] [address] MCV (RBC) [Entitic vol] 98 fL Normal 80-100 [facility] Comment on above: Performed By: #### C BCA, BMP, 94118-3, 2776-1, 60383-7, FEPR, THYR, 2276-4, 4-8, 2131-11 #### [facility] ([id number]) [address], [address] [place] [address] Monocytes (Bld) [#/Vol] 1.1 10*3/uL High 0-0.9 [facility] Comment on above: Performed By: #### C BCA, BMP, 05988-1, 2776-, 33097-7, FEPR, THYR, 2276-4, 2284-8, 2131-11 #### [facility] ([id number]) [address], [address] [place] [address] Monocytes/100 WBC (Bld) 11.6 % Normal [facility] Comment on above: Performed By: #### C BCA, BMP, 84187-4, 2777-1, 22276-9, FEPR, THYR, 2276-4, 2284-8, 2131-11 #### [facility] ([id number]) [address], [address] [place] [address] Neutrophils/100 WBC (Bld) 67.0 % Normal [facility] Comment on above: Performed By: #### C BCA, BMP, 22062-2, 2777-1, 80485-0, FEPR, THYR, 2276-4, 4-8, 2131-11 #### [facility] ([id number]) [address] [place] [address] Platelet mean volume (Bld) [Entitic vol] 7.3 fL Normal 7-12 [facility] Comment on above: Performed By: #### C BCA, BMP, 63919-7, 2777-1, 46294-5, FEPR, THYR, 2276-4, 2284-8, 2131-11 #### [facility] ([id number]) [address] [place] [address] Platelets (Bld) [#/Vol] 251 10*3/uL Normal 150-450 [facility] Comment on above: Performed By: #### C BCA, BMP, 68757-7, 2777-1, 21710-6, FEPR, THYR, 2276-4, 2284-8, 2131-11 #### [facility] ([id number]) [address] [place] [address] RBC COUNT 3.31 X10E12/L Low 4.10-5.70 [facility] Comment on above: Performed By: #### C BCA, BMP, 48620-5, 2777-1, 75612-1, FEPR, THYR, 2276-4, 2284-8, 2131-11 #### [facility] ([id number]) [address] [place] [address] WBC (Bld) [#/Vol] 9.0 10*3/uL Normal 4.0-11.0 [facility] Comment on above: Performed By: #### C BCA, BMP, 24876-9, 7-1, 47947-8, FEPR, THYR, 2276-4, 2284-8, 2131-11 #### [facility] ([id number]) [address] [place] [address] CBC auto differentialon 04-05 Basophils (Bld) [#/Vol] 0.0 10*3/uL [facility] Basophils/100 WBC (Bld) 0.5 % [facility] Eosinophils (Bld) [#/Vol] 0.3 10*3/uL [facility] Eosinophils/100 WBC (Bld) 3.3 % [facility] Erythrocyte distribution width (RBC) [Ratio] 13.5 % 11.5 - 15.0 % [facility] Hematocrit (Bld) [Volume fraction] 32.4 % Low 39 - 49 % [facility] Hemoglobin (Bld) [Mass/Vol] 10.9 g/dL Low 13.0 - 17.0 g/dL [facility] Interpretation and review of laboratory results Abnormal [facility] Lymphocytes (Bld) [#/Vol] 1.6 10*3/uL [facility] Lymphocytes/100 WBC (Bld) 17.6 % [facility] MCH (RBC) [Entitic mass] 33.1 pg 27 - 34 pg [facility] MCHC (RBC) [Mass/Vol] 33.7 g/dL 32 - 3 6 g/dL [facility] MCV (RBC) [Entitic vol] 98 fL 80 - 100 fL [facility] Monocytes (Bld) [#/Vol] 1.1 10*3/uL High [facility] Monocytes/100 WBC (Bld) 11.6 % [facility] Neutrophils (Bld) [#/Vol] 6.1 10*3/uL [facility] Neutrophils/100 WBC (Bld) 67.0 % [facility] Platelet mean volume (Bld) [Entitic vol] 7.3 fL 7 - 12 fL [facility] Platelets (Bld) [#/Vol] 251 10*3/uL [facility] RBC (Bld) [#/Vol] 3.31 10*6/uL Low [facility] WBC corrected for nucl RBC Auto (Bld) [#/Vol] 9.0 [facility] Lacosamideon 04-18-2023 Reference Lab Test ID See Below [facility] MAGNESIUMon 04-18-2023 Magnesium [Mass/Vol] 2.2 mg/dL Normal 1.8-2.6 [facility] Comment on above: Performed By: #### C BCA, BMP, 18363-7, 2777-1, 75373-7, FEPR, THYR, 2276-4, 2284-8, 2131-11 #### [facility] ([id number]) [facility] [place] [address] Magnesium [Mass/Vol] 1.7 mg/dL Low 1.8-2.6 [facility] Comment on above: Performed By: #### C BCA, BMP, 02465-4, 2777-1, 17801-5, FEPR, THYR, 2276-4, 2284-8, 2131-11 #### [facility] ([id number]) [address] [place] [address] Magnesiumon 04-18-2023 Magnesium [Mass/Vol] 2.2 mg/dL 1.8 - 2 .6 mg/dL [facility] Magnesium [Mass/Vol] 1.7 mg/dL Low 1.8 - 2 .6 mg/dL [facility] Magnesium [Mass/Vol]on 04-18 Interpretation and review of laboratory results Abnormal [facility] No Panel Informationon 04-18 [facility] PHOSPHORUSon 04-18-2023 Phosphate [Mass/Vol] 2.2 mg/dL Low 2.4-4.9 [facility] Comment on above: Performed By: #### C BCA, BMP, 16350-2, 7-1, 11269-5, FEPR, THYR, 2276-4, 2284-8, 2131-11 #### [facility] ([id number]) [address] [place] [address] Phosphate [Mass/Vol]on 04-18 Interpretation and review of laboratory results Abnormal [facility] Phosphoruson 04-18-2023 Phosphate [Mass/Vol] 2.2 mg/dL Low 2.4 - 4 .9 mg/dL [facility] Reference Lab Test IDon 04-05 [facility] BASIC METABOLIC PANLon 04-17 Anion gap [Moles/Vol] 8 mmol/L Normal 5-15 [facility] Comment on above: Performed By: #### C BCA, BMP, 65119-0, 7-1, 45002-8, FEPR, THYR, 2276-4, 2284-8, 2131-11 #### [facility] ([id number]) [address] [place] [address] Calcium [Mass/Vol] 8.3 mg/dL Low 8.5-10.5 [facility] Comment on above: Performed By: #### C BCA, BMP, 03692-0, 2777-1, 72668-8, FEPR, THYR, 2276-4, 2284-8, 2131-11 #### [facility] ([id number]) [address] [place] [address] Chloride [Moles/Vol] 111 mmol/L High 98-109 [facility] Comment on above: Performed By: #### C BCA, BMP, 56597-2, 2777-1, 03728-6, FEPR, THYR, 2276-4, 2284-8, 2131-11 #### [facility] ([id number]) [address], [address] [place] [address] CO2 [Moles/Vol] 24 mmol/L Normal 22-32 [facility] Comment on above: Performed By: #### C BCA, BMP, 55320-1, 7-1, 83406-7, FEPR, THYR, 2276-4, 2284-8, 2131-11 #### [facility] ([id number]) [address] [place] [address] Creatinine [Mass/Vol] 0.64 mg/dL Normal 0.60-1.30 [facility] Comment on above: Result Comment: METH OD TRACEABLE TO IDMS STANDARD Performed By: #### C BCA, BMP, 61709-3, 7-1, 47731-2, FEPR, THYR, 2276-4, 2284-8, 2131-11 #### [facility] ([id number]) [address] [place] [address] Glucose [Mass/Vol] 99 mg/dL Normal 65-99 [facility] Comment on above: Performed By: #### C BCA, BMP, 77215-7, 7-1, 06949-8, FEPR, THYR, 2276-4, 2284-8, 2131-11 #### [facility] ([id number]) [address] [address] [place] [address] Potassium [Moles/Vol] 4.6 mmol/L Normal 3.5-5.0 [facility] Comment on above: Performed By: #### C BCA, BMP, 20792-2, 2777-1, 58321-7, FEPR, THYR, 2276-4, 2284-8, 2131-11 #### [facility] ([id number]) [address] [place] [address] Sodium [Moles/Vol] 143 mmol/L Normal 134-146 [facility] Comment on above: Performed By: #### C BCA, BMP, 28545-2, 7-1, 61552-2, FEPR, THYR, 2276-4, 2284-8, 2131-11 #### [facility] ([id number]) [address] [place] [address] Urea nitrogen [Mass/Vol] 17 mg/dL Normal 5-27 [facility] Comment on above: Performed By: #### C BCA, BMP, 78623-2, 2776-, 73126-6, FEPR, THYR, 2276-4, 2283-8, 2131-11 #### [facility] ([id number]) [address] [address] eGFR (CKD-EPI) NON-RACE DEPENDENT >90 Normal >59 [facility] Comment on above: Result Comment: Reported eGFR is based on the CKD-EPI 2020 equation that does not use a race coefficient. Performed By: #### C BCA, BMP, 58440-8, 2776-1, 50453-9, FEPR, THYR, 6-4, 2283-8, 2131-11 #### [facility] ([id number]) [address] [address] Basic Metabolic Panelon 04-05 eGFR (CKD-EPI)non-race dependent - PINF [facility] CBC AND AUTO DIFFon 04-17-19 24 ABSOLUTE BASOPHIL 0.0 X10E9/L Normal 0.0-0.2 [facility] Comment on above: Performed By: #### C BCA, BMP, 00927-9, 7-1, 46494-6, FEPR, THYR, 2276-4, 2284-8, 2131-11 #### [facility] ([id number]) [address] [place] [address] ABSOLUTE NEUTROPHIL 6.6 X10E9/L Normal 1.5-6.6 [facility] Comment on above: Performed By: #### C BCA, BMP, 68509-6, 7-1, 73672-8, FEPR, THYR, 2276-4, 2284-8, 2131-11 #### [facility] ([id number]) [address] [place] [address] RBC COUNT 3.29 X10E12/L Low 4.10-5.70 [facility] Comment on above: Performed By: #### C BCA, BMP, 87955-8, 2776-, 88097-7, FEPR, THYR, 2276-4, 4-8, 2131-11 #### [facility] ([id number]) [address] [place] [address] WBC (Bld) [#/Vol] 9.0 10*3/uL Normal 4.0-11.0 [facility] Comment on above: Performed By: #### C BCA, BMP, 39542-5, 2776-, 66174-4, FEPR, THYR, 2276-4, 4-8, 2131-11 #### [facility] ([id number]) [address] [place] [address] Basophils/100 WBC (Bld) 0.5 % Normal [facility] Comment on above: Performed By: #### C BCA, BMP, 56175-5, 2776-1, 76735-9, FEPR, THYR, 2276-4, 2284-8, 2131-11 #### [facility] ([id number]) [address] [place] [address] Eosinophils (Bld) [#/Vol] 0.3 10*3/uL Normal 0.0-0.4 [facility] Comment on above: Performed By: #### C BCA, BMP, 83851-0, 2777-1, 45771-0, FEPR, THYR, 2276-4, 2284-8, 2131-11 #### [facility] ([id number]) [address] [place] [address] Eosinophils/100 WBC (Bld) 3.3 % Normal [facility] Comment on above: Performed By: #### C BCA, BMP, 15791-5, 2777-1, 85007-1, FEPR, THYR, 2276-4, 2284-8, 2131-11 #### [facility] ([id number]) [address] [place] [address] Erythrocyte distribution width (RBC) [Ratio] 13.2 % Normal 11.5-15.0 [facility] Comment on above: Performed By: #### C BCA, BMP, 83529-5, 7-1, 17589-1, FEPR, THYR, 2276-4, 2284-8, 2131-11 #### [facility] ([id number]) [address] [place] [address] Hematocrit (Bld) [Volume fraction] 32.5 % Low 39-49 [facility] Comment on above: Performed By: #### C BCA, BMP, 71772-4, 7-1, 18988-3, FEPR, THYR, 2276-4, 2284-8, 2131-11 #### [facility] ([id number]) [address] [place] [address] Hemoglobin (Bld) [Mass/Vol] 11.0 g/dL Low 13.0-17.0 [facility] Comment on above: Performed By: #### C BCA, BMP, 66734-6, 2777-1, 16326-9, FEPR, THYR, 2276-4, 2284-8, 2131-11 #### [facility] ([id number]) [address] [place] [address] Lymphocytes (Bld) [#/Vol] 1.2 10*3/uL Normal 1.0-3.5 [facility] Comment on above: Performed By: #### C BCA, BMP, 91629-1, 7-1, 36111-4, FEPR, THYR, 2276-4, 2284-8, 2131-11 #### [facility] ([id number]) [address] [place] [address] Lymphocytes/100 WBC (Bld) 13.7 % Normal [facility] Comment on above: Performed By: #### C BCA, BMP, 32946-7, 2776-1, 49606-2, FEPR, THYR, 2276-4, 2284-8, 2131-11 #### [facility] ([id number]) [address] [place] [address] MCH (RBC) [Entitic mass] 33.5 pg Normal 27-34 [facility] Comment on above: Performed By: #### C BCA, BMP, 01018-4, 2776-1, 13623-0, FEPR, THYR, 2276-4, 4-8, 2131-11 #### [facility] ([id number]) [address] [place] [address] MCHC (RBC) [Mass/Vol] 34.0 g/dL Normal 32-36 [facility] Comment on above: Performed By: #### C BCA, BMP, 85159-1, 2776-1, 05906-4, FEPR, THYR, 2276-4, 2284-8, 2131-11 #### [facility] ([id number]) [address] [place] [address] MCV (RBC) [Entitic vol] 99 fL Normal 80-100 [facility] Comment on above: Performed By: #### C BCA, BMP, 25507-3, 2777-1, 05228-3, FEPR, THYR, 2276-4, 2284-8, 9 #### [facility] ([id number]) [address] [place] [address] Monocytes (Bld) [#/Vol] 0.8 10*3/uL Normal 0-0.9 [facility] Comment on above: Performed By: #### C BCA, BMP, 46309-2, 7-1, 51108-3, FEPR, THYR, 2276-4, 2284-8, 2131-11 #### [facility] ([id number]) [address] [place] [address] Monocytes/100 WBC (Bld) 9.1 % Normal [facility] Comment on above: Performed By: #### C BCA, BMP, 01768-1, 2776-1, 00534-0, FEPR, THYR, 2276-4, 2284-8, 2131-11 #### [facility] ([id number]) [address] [place] [address] Neutrophils/100 WBC (Bld) 73.4 % Normal [facility] Comment on above: Performed By: #### C BCA, BMP, 72570-1, 7-1, 30293-9, FEPR, THYR, 2276-4, 2284-8, 2131-11 #### [facility] ([id number]) [address] [place] [address] Platelet mean volume (Bld) [Entitic vol] 7.7 fL Normal 7-12 [facility] Comment on above: Performed By: #### C BCA, BMP, 36051-4, 7-1, 12751-4, FEPR, THYR, 2276-4, 2284-8, 2131-11 #### [facility] ([id number]) [address] [place] [address] Platelets (Bld) [#/Vol] 232 10*3/uL Normal 150-450 [facility] Comment on above: Performed By: #### C BCA, BMP, 85023-7, 2776-, 28117-1, FEPR, THYR, 2276-4, 2283-8, 2131-11 #### [facility] ([id number]) [address] [place] [address] CBC auto differentialon 04-05 Basophils (Bld) [#/Vol] 0.0 10*3/uL [facility] Interpretation and review of laboratory results Abnormal [facility] Neutrophils (Bld) [#/Vol] 6.6 10*3/uL [facility] RBC (Bld) [#/Vol] 3.29 10*6/uL Low [facility] WBC corrected for nucl RBC Auto (Bld) [#/Vol] 9.0 [facility] - Chemistry and C hemistry - challengeon 04-17-2023 Magnesium [Mass/Vol] 1.8 mg/dL Normal 1.8-2.6 [facility] Comment on above: Performed By: #### C SEAN, BMP, , 2776-, 28374-7, FEPR, THYR, 2275-4, 2283-8, 2131-11 #### [facility] ([id number]) [address] [place] [address] Phosphate [Mass/Vol] 1.6 mg/dL Low 2.4-4.9 [facility] Comment on above: Performed By: #### C BCA, BMP, 37284-8, 2776-, 44724-1, FEPR, THYR, 2275-4, 2283-8, 2131-11 #### [facility] ([id number]) [address] [place] [address] MAGNESIUMon 04-17-2023 Magnesium [Mass/Vol] 2.0 mg/dL Normal 1.8-2.6 [facility] Comment on above: Performed By: #### C BCA, BMP, 95055-9, 2777-1, 18100-5, FEPR, THYR, 2276-4, 2284-8, 2131-11 #### [facility] ([id number]) [address] [place] [address] Magnesiumon 04-17-2023 Magnesium [Mass/Vol] 2.0 mg/dL 1.8 - 2 .6 mg/dL [facility] No Panel Informationon 04-17 [facility] Interpretation and review of laboratory results Abnormal [facility] PHOSPHORUSon 04-17-2023 Phosphate [Mass/Vol] 2.0 mg/dL Low 2.4-4.9 [facility] Comment on above: Result Comment: SPEC IMEN HEMOLYZED, RESULTS INCREASED MODERATELY HEMOLYZED Performed By: #### C BCA, BMP, 07581-1, 2776-1, 08114-8, FEPR, THYR, 6-4, 2283-8, 2131-11 #### [facility] ([id number]) [address] [place] [address] Phosphate [Mass/Vol]on 04-17 Interpretation and review of laboratory results Abnormal [facility] Phosphoruson 04-17-2023 Phosphate [Mass/Vol] 2.0 mg/dL Low 2.4 - 4 .9 mg/dL [facility] BASIC METABOLIC PANLon 04-16 Anion gap [Moles/Vol] 7 mmol/L Normal 5-15 [facility] Comment on above: Performed By: #### C BCA, BMP, 77000-1, 2777-1, 72196-9, FEPR, THYR, 2276-4, 2283-8, 2131-11 #### [facility] ([id number]) [address] [place] [address] Calcium [Mass/Vol] 7.8 mg/dL Low 8.5-10.5 [facility] Comment on above: Performed By: #### C BCA, BMP, 84941-2, 7-1, 95223-3, FEPR, THYR, 2276-4, 2284-8, 2131-11 #### [facility] ([id number]) [address] [place] [address] Chloride [Moles/Vol] 111 mmol/L High 98-109 [facility] Comment on above: Performed By: #### C BCA, BMP, 24251-3, 7-1, 37348-0, FEPR, THYR, 2276-4, 2284-8, 2131-11 #### [facility] ([id number]) [address] [place] [address] CO2 [Moles/Vol] 28 mmol/L Normal 22-32 [facility] Comment on above: Performed By: #### C BCA, BMP, 49065-8, 2776-1, 50476-1, FEPR, THYR, 2276-4, 2284-8, 2131-11 #### [facility] ([id number]) [address] [place] [address] Creatinine [Mass/Vol] 0.60 mg/dL Normal 0.60-1.30 [facility] Comment on above: Result Comment: METH OD TRACEABLE TO IDMS STANDARD Performed By: #### C BCA, BMP, 54817-3, 2776-1, 48145-0, FEPR, THYR, 2276-4, 2284-8, 2131-11 #### [facility] ([id number]) [address] [place] [address] eGFR (CKD-EPI) NON-RACE DEPENDENT >90 Normal >59 [facility] Comment on above: Result Comment: Reported eGFR is based on the CKD-EPI 2020 equation that does not use a race coefficient. Performed By: #### C BCA, BMP, 13781-5, 2776-1, 75508-0, FEPR, THYR, 2276-4, 2284-8, 2131-11 #### [facility] ([id number]) [address] [place] [address] Glucose [Mass/Vol] 106 mg/dL High 65-99 [facility] Comment on above: Performed By: #### C BCA, BMP, 79318-6, 2777-1, 21032-9, FEPR, THYR, 2276-4, 2284-8, 2131-11 #### [facility] ([id number]) [address] [place] [address] Potassium [Moles/Vol] 4.5 mmol/L Normal 3.5-5.0 [facility] Comment on above: Performed By: #### C BCA, BMP, 60299-9, 7-1, 70257-4, FEPR, THYR, 2276-4, 228-8, 2131-11 #### [facility] ([id number]) [address] [place] [address] Sodium [Moles/Vol] 146 mmol/L Normal 134-146 [facility] Comment on above: Performed By: #### C BCA, BMP, 88821-1, 7-1, 47180-6, FEPR, THYR, 2276-4, 228-8, 2131-11 #### [facility] ([id number]) [address] [place] [address] Urea nitrogen [Mass/Vol] 17 mg/dL Normal 5-27 [facility] Comment on above: Performed By: #### C BCA, BMP, 08178-4, 7-1, 30247-1, FEPR, THYR, 2276-4, 2284-8, 2131-11 #### [facility] ([id number]) [address] [place] [address] Basic Metabolic Panelon 04-05 Anion gap [Moles/Vol] 7 mmol/L 5 - 15 mmol/L [facility] Calcium [Mass/Vol] 7.8 mg/dL Low 8.5 - 10. 5 mg/dL [facility] Chloride [Moles/Vol] 111 mmol/L High 98 - 10 9 mmol/L [facility] CO2 [Moles/Vol] 28 mmol/L 22 - 32 mmol/L [facility] Creatinine [Mass/Vol] 0.60 mg/dL 0.60 - 1.30 mg/dL [facility] eGFR (CKD-EPI)non-race dependent - PINF [facility] Glucose [Mass/Vol] 106 mg/dL High 65 - 99 mg/dL [facility] Interpretation and review of laboratory results Abnormal [facility] Potassium [Moles/Vol] 4.5 mmol/L 3.5 - 5.0 mmol/L [facility] Sodium [Moles/Vol] 146 mmol/L 134 - 146 mmol/L [facility] Urea nitrogen [Mass/Vol] 17 mg/dL 5 - 27 mg/dL [facility] CBC AND AUTO DIFFon 04-16-19 24 ABSOLUTE BASOPHIL 0.0 X10E9/L Normal 0.0-0.2 [facility] Comment on above: Performed By: #### C SEAN, BMP, 67354-2, 7-1, 54869-7, FEPR, THYR, 6-4, 4-8, 2131-11 #### [facility] ([id number]) [address] [place] [address] ABSOLUTE NEUTROPHIL 5.4 X10E9/L Normal 1.5-6.6 [facility] Comment on above: Performed By: #### C BCA, BMP, 03680-6, 2776-1, 84542-9, FEPR, THYR, 2276-4, 2284-8, 2131-11 #### [facility] ([id number]) [address] [place] [address] Basophils/100 WBC (Bld) 0.5 % Normal [facility] Comment on above: Performed By: #### C BCA, BMP, 63558-3, 2777-1, 21755-0, FEPR, THYR, 2276-4, 2284-8, 2131-11 #### [facility] ([id number]) [address] [place] [address] Eosinophils (Bld) [#/Vol] 0.3 10*3/uL Normal 0.0-0.4 [facility] Comment on above: Performed By: #### C BCA, BMP, 56518-0, 2777-1, 31911-6, FEPR, THYR, 2276-4, 2284-8, 2131-11 #### [facility] ([id number]) [address] [place] [address] Eosinophils/100 WBC (Bld) 4.2 % Normal [facility] Comment on above: Performed By: #### C BCA, BMP, 62196-8, 7-1, 09119-8, FEPR, THYR, 2276-4, 2284-8, 2131-11 #### [facility] ([id number]) [address] [place] [address] Erythrocyte distribution width (RBC) [Ratio] 13.5 % Normal 11.5-15.0 [facility] Comment on above: Performed By: #### C BCA, BMP, 13388-4, 7-1, 73351-6, FEPR, THYR, 2276-4, 2284-8, 2131-11 #### [facility] ([id number]) [address] [place] [address] Hematocrit (Bld) [Volume fraction] 31.9 % Low 39-49 [facility] Comment on above: Performed By: #### C BCA, BMP, 74510-3, 2777-1, 68212-0, FEPR, THYR, 2276-4, 2284-8, 2131-11 #### [facility] ([id number]) [address] [place] [address] Hemoglobin (Bld) [Mass/Vol] 10.9 g/dL Low 13.0-17.0 [facility] Comment on above: Performed By: #### C BCA, BMP, 89922-3, 7-1, 21015-3, FEPR, THYR, 2276-4, 2284-8, 2131-11 #### [facility] ([id number]) [address] [place] [address] Lymphocytes (Bld) [#/Vol] 1.2 10*3/uL Normal 1.0-3.5 [facility] Comment on above: Performed By: #### C BCA, BMP, 86344-5, 7-1, 27003-9, FEPR, THYR, 2276-4, 2284-8, 2131-11 #### [facility] ([id number]) [address] [place] [address] Lymphocytes/100 WBC (Bld) 15.4 % Normal [facility] Comment on above: Performed By: #### C BCA, BMP, 72358-8, 7-1, 67831-0, FEPR, THYR, 2276-4, 2284-8, 2131-11 #### [facility] ([id number]) [address] [place] [address] MCH (RBC) [Entitic mass] 33.1 pg Normal 27-34 [facility] Comment on above: Performed By: #### C BCA, BMP, 79318-6, 7-1, 66748-6, FEPR, THYR, 2276-4, 2284-8, 2131-11 #### [facility] ([id number]) [address] [place] [address] MCHC (RBC) [Mass/Vol] 34.0 g/dL Normal 32-36 [facility] Comment on above: Performed By: #### C BCA, BMP, 48487-9, 7-1, 28143-9, FEPR, THYR, 2276-4, 2284-8, 2131-11 #### [facility] ([id number]) [address] [place] [address] MCV (RBC) [Entitic vol] 97 fL Normal 80-100 [facility] Comment on above: Performed By: #### C BCA, BMP, 53203-5, 2776-1, 08970-1, FEPR, THYR, 2276-4, 2284-8, 2131-11 #### [facility] ([id number]) [address] [place] [address] Monocytes (Bld) [#/Vol] 0.6 10*3/uL Normal 0-0.9 [facility] Comment on above: Performed By: #### C BCA, BMP, 26517-2, 2776-1, 08615-6, FEPR, THYR, 2276-4, 2284-8, 2131-11 #### [facility] ([id number]) [address] [place] [address] Monocytes/100 WBC (Bld) 8.4 % Normal [facility] Comment on above: Performed By: #### C BCA, BMP, 63988-6, 2776-1, 58733-0, FEPR, THYR, 2276-4, 2284-8, 2131-11 #### [facility] ([id number]) [address] [place] [address] Neutrophils/100 WBC (Bld) 71.5 % Normal [facility] Comment on above: Performed By: #### C BCA, BMP, 98364-8, 7-1, 45827-9, FEPR, THYR, 2276-4, 2284-8, 2131-11 #### [facility] ([id number]) [address] [place] [address] Platelet mean volume (Bld) [Entitic vol] 7.6 fL Normal 7-12 [facility] Comment on above: Performed By: #### C BCA, BMP, 91878-6, 7-1, 37106-5, FEPR, THYR, 2276-4, 2284-8, 2131-11 #### [facility] ([id number]) [address] [place] [address] Platelets (Bld) [#/Vol] 173 10*3/uL Normal 150-450 [facility] Comment on above: Performed By: #### C BCA, BMP, 64819-6, 2776-, 26399-1, FEPR, THYR, 2276-4, 2284-8, 2131-11 #### [facility] ([id number]) [address], [address] [place] [address] RBC COUNT 3.28 X10E12/L Low 4.10-5.70 [facility] Comment on above: Performed By: #### C BCA, BMP, 13658-4, 2776-, 02427-2, FEPR, THYR, 2276-4, 2284-8, 2131-11 #### [facility] ([id number]) [address], [address] [place] [address] WBC (Bld) [#/Vol] 7.5 10*3/uL Normal 4.0-11.0 [facility] Comment on above: Performed By: #### C BCA, BMP, 10548-0, 2776-, 34910-8, FEPR, THYR, 2276-4, 2284-8, 2131-11 #### [facility] ([id number]) [address], [address] [place] [address] CBC auto differentialon 04-05 Basophils (Bld) [#/Vol] 0.0 10*3/uL [facility] Basophils/100 WBC (Bld) 0.5 % [facility] Eosinophils (Bld) [#/Vol] 0.3 10*3/uL [facility] Eosinophils/100 WBC (Bld) 4.2 % [facility] Erythrocyte distribution width (RBC) [Ratio] 13.5 % 11.5 - 15.0 % [facility] Hematocrit (Bld) [Volume fraction] 31.9 % Low 39 - 49 % [facility] Hemoglobin (Bld) [Mass/Vol] 10.9 g/dL Low 13.0 - 17.0 g/dL [facility] Interpretation and review of laboratory results Abnormal [facility] Lymphocytes (Bld) [#/Vol] 1.2 10*3/uL [facility] Lymphocytes/100 WBC (Bld) 15.4 % [facility] MCH (RBC) [Entitic mass] 33.1 pg 27 - 34 pg [facility] MCHC (RBC) [Mass/Vol] 34.0 g/dL 32 - 3 6 g/dL [facility] MCV (RBC) [Entitic vol] 97 fL 80 - 100 fL [facility] Monocytes (Bld) [#/Vol] 0.6 10*3/uL [facility] Monocytes/100 WBC (Bld) 8.4 % [facility] Neutrophils (Bld) [#/Vol] 5.4 10*3/uL [facility] Neutrophils/100 WBC (Bld) 71.5 % [facility] Platelet mean volume (Bld) [Entitic vol] 7.6 fL 7 - 12 fL [facility] Platelets (Bld) [#/Vol] 173 10*3/uL [facility] RBC (Bld) [#/Vol] 3.28 10*6/uL Low [facility] WBC corrected for nucl RBC Auto (Bld) [#/Vol] 7.5 [facility] Calcium.ionized (Bld) [Mass/ Vol]on 04-16-2023 IONIZED CALCIUM 4.9 mg/dL Normal 4.5-5.3 [facility] Comment on above: Performed By: #### C BCA, BMP, 71981-3, 2777-1, 90388-8, FEPR, THYR, 2276-4, 2284-8, 2132-9 #### [facility] ([id number]) [address], [address] [place] [address] FL SWALLOW MOTILITY FUNCTION on 04-16-2023 FL SWALLOW MOTILITY FUNCTION FL SWALLOW MOTILITY FUNCTION FL SWALLOW MOTILITY FUNCTION HISTORY: Oropharyngeal dysphagia COMPARISON: 04/12/2023 TECHNIQUE: Video fluoroscopic swallow study was performed in conjunction with speech pathologist. Barium contrast materials of varying consistencies administered. FINDINGS: Fluoroscopy time: 3 minutes 2 seconds Reference air kerma: 4.84 mGy Runs: 14 Thin: Slight aspiration. Mildly thick: Deep penetration. Moderately thick: Penetration. Applesauce: No penetration or aspiration. Fruit: No penetration or aspiration. Cracker: No penetration or aspiration. Diffuse idiopathic skeletal hyperostosis in the lower cervical spine with large osteophyte at C5/6 vertebrae. Significant stasis in the hypopharynx with all food consistencies at the level of the large osteophyte. IMPRESSION: 1. Abnormal swallow study as noted above with significant stasis in the hypopharynx at the level of the large osteophyte at C5/6 vertebrae. 2. Please correlate with dedicated speech pathology report for additional details and recommendations. Approved by Resident Bunny Murillo MD on 04/16/2023 10:09 AM Silviano Ng have personally reviewed the image(s) and agree with and/or edited the report Finalized by Silviano Nelson on 04/16/2023 10:52 AM Normal [facility] Ionized calciumon 04-16-2023 Calcium.ionized (Bld) [Mass/Vol] 4.9 mg/dL 4.5 - 5.3 mg/dL [facility] Ionized magnesiumon 04-16-19 Magnesium Ionized ISE (Bld) [Moles/Vol] 0.71 mmol/L 0.45 - 0.74 mmol/L [facility] Levetiracetam levelon 2023 levETIRAcetam [Mass/Vol] See Below [facility] MAGNESIUMon 04-16-2023 Magnesium [Mass/Vol] 1.8 mg/dL Normal 1.8-2.6 [facility] Comment on above: Performed By: #### C SEAN, BMP, 10536-6, 2777-1, 67393-1, FEPR, THYR, 2276-4, 2284-8, 2131-11 #### [facility] ([id number]) [address], [address] [place] [address] Magnesiumon 04-16-2023 Magnesium [Mass/Vol] 1.8 mg/dL 1.8 - 2 .6 mg/dL [facility] Magnesium Ionized ISE (Bld) [Moles/Vol]on 04-16-2023 Magnesium [Moles/Vol] 0.71 mmol/L Normal 0.45-0.74 [facility] Comment on above: Result Comment: NEW REFERENCE RANGE Performed By: #### C SEAN, BMP, 03021-0, 7-1, 24392-2, FEPR, THYR, 2276-4, 4-8, 2131-11 #### [facility] ([id number]) [address] [place] [address] No Panel Informationon 04-16 [facility] PHOSPHORUSon 04-16-2023 Phosphate [Mass/Vol] mg/dL Critically low 2.4-4.9 [facility] Comment on above: Performed By: #### C SEAN, BMP, 18531-3, 7-1, 15489-2, FEPR, THYR, 2276-4, 2284-8, 2131-11 #### [facility] ([id number]) [address], [address] [place] [address] Phosphate [Mass/Vol]on 04-16 Interpretation and review of laboratory results Abnormal [facility] Phosphoruson 04-16-2023 Phosphate [Mass/Vol] mg/dL Critically low 2.4 - 4.9 mg/dL [facility] RF videography Hypopharynx a nd Esophagus Viewson 04-16-2023 [facility] Study observation (narrative) E-House RF videography Hypopharynx a nd Esophagus ViewsOrdered By: Silviano Nelson on 04-16-2023 [employer] Work Phone: Reference Lab Test IDon 04-05 Lacosamide See Below Normal [facility] Comment on above: Result Comment: NOTE TEST RESULT FLAG UNIT REF.RANGE ------- Lacosamide Test 3.9 ug/mL 2.2-19.8 Expected concentration of patients receiving 200-400 mg/day is 2.2-19.8 ug/mL for Lacosamide. This test was developed and its performance characteristics determined by [facility] [place] ([facility]). It has not been cleared or approved by the FDA. -[facility] is regulated under CLIA as qualified to perform high-complexity testing. This test is used for clinical purposes. It should not be regarded as investigational or for research. Desmethyllacosamide 1.4 ug/mL <2.6 Expected concentration of patients receiving 200-400 mg/day is up to 2.5 ug/mL for Desmethyllacosamide. This test was developed and its performance characteristics determined by [facility] [place] ([facility]). It has not been cleared or approved by the FDA. [facility] is regulated under CLIA as qualified to perform high-complexity testing. This test is used for clinical purposes. It should not be regarded as investigational or for research. Test Performed By: [facility] [employer] [address] [place] [address] Truck Crane Operator: Migue Lubin III, M.D. CLIA #[id number] levETIRAcetam [Mass/Vol]on 0 04-16-2023 [facility] BASIC METABOLIC PANLon 04-15 Anion gap [Moles/Vol] 6 mmol/L Normal 5-15 [facility] Comment on above: Performed By: #### C BCA, BMP, 06827-6, 7-1, 88501-7, FEPR, THYR, 2276-4, 2284-8, 9 #### [facility] ([id number]) [address], [address] [place] [address] Calcium [Mass/Vol] 7.7 mg/dL Low 8.5-10.5 [facility] Comment on above: Performed By: #### C BCA, BMP, 87448-2, 2776-1, 01369-3, FEPR, THYR, 2276-4, 2284-8, 2131-11 #### [facility] ([id number]) [address], [address] [place] [address] Chloride [Moles/Vol] 111 mmol/L High 98-109 [facility] Comment on above: Performed By: #### C BCA, BMP, 37479-3, 2776-1, 64477-9, FEPR, THYR, 2276-4, 2284-8, 2131-11 #### [facility] ([id number]) [address], [address] [place] [address] CO2 [Moles/Vol] 27 mmol/L Normal 22-32 [facility] Comment on above: Performed By: #### C BCA, BMP, 66845-1, 2776-1, 49652-8, FEPR, THYR, 2276-4, 2284-8, 2131-11 #### [facility] ([id number]) [address], [address] [place] [address] Creatinine [Mass/Vol] 0.67 mg/dL Normal 0.60-1.30 [facility] Comment on above: Result Comment: METH OD TRACEABLE TO IDMS STANDARD Performed By: #### C BCA, BMP, 95357-0, 2777-1, 14022-1, FEPR, THYR, 2276-4, 2284-8, 2131-11 #### [facility] ([id number]) [address], [address] [place] [address] eGFR (CKD-EPI) NON-RACE DEPENDENT >90 Normal >59 [facility] Comment on above: Result Comment: Reported eGFR is based on the CKD-EPI 2020 equation that does not use a race coefficient. Performed By: #### C BCA, BMP, 10892-3, 7-1, 72496-0, FEPR, THYR, 2276-4, 2284-8, 2131-11 #### [facility] ([id number]) [address], [address] [place] [address] Glucose [Mass/Vol] 124 mg/dL High 65-99 [facility] Comment on above: Performed By: #### C BCA, BMP, 31042-1, 2776-1, 05398-9, FEPR, THYR, 2276-4, 2284-8, 2131-11 #### [facility] ([id number]) [address], [address] [place] [address] Potassium [Moles/Vol] 4.1 mmol/L Normal 3.5-5.0 [facility] Comment on above: Performed By: #### C BCA, BMP, 70735-4, 2776-1, 11210-1, FEPR, THYR, 2276-4, 2284-8, 2131-11 #### [facility] ([id number]) [address], [address] [place] [address] Sodium [Moles/Vol] 144 mmol/L Normal 134-146 [facility] Comment on above: Performed By: #### C BCA, BMP, 69268-1, 2777-1, 34009-0, FEPR, THYR, 2276-4, 2284-8, 2131-11 #### [facility] ([id number]) [address] [place] [address] Urea nitrogen [Mass/Vol] 11 mg/dL Normal 5-27 [facility] Comment on above: Performed By: #### C BCA, BMP, 64045-3, 2776-1, 09255-3, FEPR, THYR, 2276-4, 4-8, 2131-11 #### [facility] ([id number]) [address] [place] [address] Basic Metabolic Panelon 04-05 Anion gap [Moles/Vol] 6 mmol/L 5 - 15 mmol/L [facility] Calcium [Mass/Vol] 7.7 mg/dL Low 8.5 - 10. 5 mg/dL [facility] Chloride [Moles/Vol] 111 mmol/L High 98 - 10 9 mmol/L [facility] CO2 [Moles/Vol] 27 mmol/L 22 - 32 mmol/L [facility] Creatinine [Mass/Vol] 0.67 mg/dL 0.60 - 1.30 mg/dL [facility] eGFR (CKD-EPI)non-race dependent - PINF [facility] Glucose [Mass/Vol] 124 mg/dL High 65 - 99 mg/dL [facility] Potassium [Moles/Vol] 4.1 mmol/L 3.5 - 5.0 mmol/L [facility] Sodium [Moles/Vol] 144 mmol/L 134 - 146 mmol/L [facility] Urea nitrogen [Mass/Vol] 11 mg/dL 5 - 27 mg/dL [facility] CBC AND AUTO DIFFon 04-15-19 24 ABSOLUTE BASOPHIL 0.0 X10E9/L Normal 0.0-0.2 [facility] Comment on above: Performed By: #### C BCA, BMP, , 2776-, 42547-3, FEPR, THYR, 6-4, 4-8, 2131-11 #### [facility] ([id number]) [address] [place] [address] ABSOLUTE NEUTROPHIL 8.4 X10E9/L High 1.5-6.6 [facility] Comment on above: Performed By: #### C BCA, BMP, 00927-0, 7-1, 47588-6, FEPR, THYR, 2276-4, 2284-8, 2131-11 #### [facility] ([id number]) [address], [address] [place] [address] Basophils/100 WBC (Bld) 0.3 % Normal [facility] Comment on above: Performed By: #### C BCA, BMP, 09268-3, 2776-, 95236-1, FEPR, THYR, 2276-4, 2284-8, 2131-11 #### [facility] ([id number]) [address], [address] [place] [address] Eosinophils (Bld) [#/Vol] 0.2 10*3/uL Normal 0.0-0.4 [facility] Comment on above: Performed By: #### C BCA, BMP, 62018-3, 2776-1, 60084-0, FEPR, THYR, 2276-4, 2284-8, 2131-11 #### [facility] ([id number]) [address], [address] [place] [address] Eosinophils/100 WBC (Bld) 1.6 % Normal [facility] Comment on above: Performed By: #### C BCA, BMP, 94651-2, 2776-, 20832-0, FEPR, THYR, 2276-4, 2284-8, 2131-11 #### [facility] ([id number]) [address], [address] [place] [address] Erythrocyte distribution width (RBC) [Ratio] 13.2 % Normal 11.5-15.0 [facility] Comment on above: Performed By: #### C BCA, BMP, 53461-1, 2776-1, 78025-2, FEPR, THYR, 2276-4, 228-8, 2131-11 #### [facility] ([id number]) [address], [address] [place] [address] Hematocrit (Bld) [Volume fraction] 30.8 % Low 39-49 [facility] Comment on above: Performed By: #### C BCA, BMP, 95671-9, 2776-, 04370-7, FEPR, THYR, 2276-4, 4-8, 2131-11 #### [facility] ([id number]) [address], [address] [place] [address] Hemoglobin (Bld) [Mass/Vol] 10.7 g/dL Low 13.0-17.0 [facility] Comment on above: Performed By: #### C BCA, BMP, 15964-4, 2776-, 44491-9, FEPR, THYR, 2276-4, 2283-8, 2131-11 #### [facility] ([id number]) [address] [place] [address] Lymphocytes (Bld) [#/Vol] 1.2 10*3/uL Normal 1.0-3.5 [facility] Comment on above: Performed By: #### C BCA, BMP, 64986-8, 2776-, 79605-9, FEPR, THYR, 6-4, 2283-8, 2131-11 #### [facility] ([id number]) [address] [place] [address] Lymphocytes/100 WBC (Bld) 11.7 % Normal [facility] Comment on above: Performed By: #### C BCA, BMP, 10650-7, 2776-, 48899-5, FEPR, THYR, 2276-4, 2283-8, 2131-11 #### [facility] ([id number]) [address] [place] [address] MCH (RBC) [Entitic mass] 34.1 pg High 27-34 [facility] Comment on above: Performed By: #### C BCA, BMP, 16840-2, 2777-1, 95160-2, FEPR, THYR, 2276-4, 2284-8, 2131-11 #### [facility] ([id number]) [address], [address] [place] [address] MCHC (RBC) [Mass/Vol] 34.6 g/dL Normal 32-36 [facility] Comment on above: Performed By: #### C BCA, BMP, 95203-7, 7-1, 93120-2, FEPR, THYR, 2276-4, 2284-8, 2131-11 #### [facility] ([id number]) [address], [address] [place] [address] MCV (RBC) [Entitic vol] 99 fL Normal 80-100 [facility] Comment on above: Performed By: #### C BCA, BMP, 64391-1, 7-1, 52301-1, FEPR, THYR, 2276-4, 2283-8, 2131-11 #### [facility] ([id number]) [address], [address] [place] [address] Monocytes (Bld) [#/Vol] 0.6 10*3/uL Normal 0-0.9 [facility] Comment on above: Performed By: #### C BCA, BMP, 67607-6, 2776-1, 88684-8, FEPR, THYR, 2276-4, 2284-8, 2131-11 #### [facility] ([id number]) [address], [address] [place] [address] Monocytes/100 WBC (Bld) 6.1 % Normal [facility] Comment on above: Performed By: #### C BCA, BMP, 37862-5, 2776-1, 21138-5, FEPR, THYR, 2276-4, 2284-8, 2131-11 #### [facility] ([id number]) [address], [address] [place] [address] Neutrophils/100 WBC (Bld) 80.3 % Normal [facility] Comment on above: Performed By: #### C BCA, BMP, 26311-3, 2777-1, 33453-0, FEPR, THYR, 2276-4, 2284-8, 2131-11 #### [facility] ([id number]) [address] [place] [address] Platelet mean volume (Bld) [Entitic vol] 7.4 fL Normal 7-12 [facility] Comment on above: Performed By: #### C BCA, BMP, 30672-2, 2777-1, 37757-0, FEPR, THYR, 2276-4, 2284-8, 2131-11 #### [facility] ([id number]) [address] [place] [address] Platelets (Bld) [#/Vol] 140 10*3/uL Low 150-450 [facility] Comment on above: Performed By: #### C BCA, BMP, 52524-5, 2777-1, 80551-1, FEPR, THYR, 2276-4, 2284-8, 2131-11 #### [facility] ([id number]) [address], [address] [place] [address] RBC COUNT 3.13 X10E12/L Low 4.10-5.70 [facility] Comment on above: Performed By: #### C BCA, BMP, 90763-1, 2777-1, 14605-1, FEPR, THYR, 2276-4, 2284-8, 2131-11 #### [facility] ([id number]) [address] [place] [address] WBC (Bld) [#/Vol] 10.4 10*3/uL Normal 4.0-11.0 [facility] Comment on above: Performed By: #### C BCA, BMP, 97893-1, 2777-1, 14800-0, FEPR, THYR, 2276-4, 2284-8, 2132-9 #### [facility] ([id number]) [address] [place] [address] CBC auto differentialon 04-05 Basophils (Bld) [#/Vol] 0.0 10*3/uL [facility] Basophils/100 WBC (Bld) 0.3 % [facility] Eosinophils (Bld) [#/Vol] 0.2 10*3/uL [facility] Eosinophils/100 WBC (Bld) 1.6 % [facility] Erythrocyte distribution width (RBC) [Ratio] 13.2 % 11.5 - 15.0 % [facility] Hematocrit (Bld) [Volume fraction] 30.8 % Low 39 - 49 % [facility] Hemoglobin (Bld) [Mass/Vol] 10.7 g/dL Low 13.0 - 17.0 g/dL [facility] Interpretation and review of laboratory results Abnormal [facility] Lymphocytes (Bld) [#/Vol] 1.2 10*3/uL [facility] Lymphocytes/100 WBC (Bld) 11.7 % [facility] MCH (RBC) [Entitic mass] 34.1 pg High 27 - 34 pg [facility] MCHC (RBC) [Mass/Vol] 34.6 g/dL 32 - 3 6 g/dL [facility] MCV (RBC) [Entitic vol] 99 fL 80 - 100 fL [facility] Monocytes (Bld) [#/Vol] 0.6 10*3/uL [facility] Monocytes/100 WBC (Bld) 6.1 % [facility] Neutrophils (Bld) [#/Vol] 8.4 10*3/uL High [facility] Neutrophils/100 WBC (Bld) 80.3 % [facility] Platelet mean volume (Bld) [Entitic vol] 7.4 fL 7 - 12 fL [facility] Platelets (Bld) [#/Vol] 140 10*3/uL Low [facility] RBC (Bld) [#/Vol] 3.13 10*6/uL Low [facility] WBC corrected for nucl RBC Auto (Bld) [#/Vol] 10.4 [facility] MAGNESIUMon 04-15-2023 Magnesium [Mass/Vol] 2.1 mg/dL Normal 1.8-2.6 [facility] Comment on above: Performed By: #### C BCA, BMP, 14187-1, 2777-1, 01983-0, FEPR, THYR, 2276-4, 2284-8, 2131-11 #### [facility] ([id number]) [address] [place] [address] Magnesium [Mass/Vol] 1.7 mg/dL Low 1.8-2.6 [facility] Comment on above: Performed By: #### C BCA, BMP, 79005-3, 2777-1, 06829-7, FEPR, THYR, 2276-4, 2284-8, 2131-11 #### [facility] ([id number]) [address] [place] [address] Magnesiumon 04-15-2023 Magnesium [Mass/Vol] 2.1 mg/dL 1.8 - 2 .6 mg/dL [facility] Magnesium [Mass/Vol] 1.7 mg/dL Low 1.8 - 2 .6 mg/dL [facility] Magnesium [Mass/Vol]on 04-15 [facility] No Panel Informationon 04-15 Interpretation and review of laboratory results Abnormal [facility] levETIRAcetam [Mass/Vol]on 0 04-15-2023 LEVETIRACETAM See Below Normal [facility] Comment on above: Result Comment: NOTE TEST RESULT FLAG UNIT REF.RANGE ------- Levetiracetam 25.8 ug/mL 12.0-46.0 This test is not suitable for patients receiving treatment with the drug brivaracetam (Briviact). The drug causes an interference that may lead to falsely elevated levetiracetam results. Reference ranges and high/low indicator flags are provided as general guidelines only. The treating physician must determine appropriate target levels/dosing based on the specific clinical situation. This test was developed and its performance characteristics determined by [facility] [place] ([facility]). It has not been cleared or approved by the FDA. [facility] is regulated under CLIA as qualified to perform high-complexity testing. This test is used for clinical purposes. It should not be regarded as investigational or for research. Test Performed By: [facility] [address] [place] [address] Truck Crane Operator: Migue Lubin III, M.D. CLIA #[id number] BASIC METABOLIC PANLon 04-14 Anion gap [Moles/Vol] 7 mmol/L Normal 5-15 [facility] Comment on above: Performed By: #### C BCA, BMP, 27433-3, 2777-1, 92651-5, FEPR, THYR, 2276-4, 2284-8, 2131- #### [facility] ([id number]) [address] [place] [address], [address] [place] [address] Calcium [Mass/Vol] 8.1 mg/dL Low 8.5-10.5 [facility] Comment on above: Performed By: #### C BCA, BMP, 93835-6, 2777-1, 96645-7, FEPR, THYR, 2276-4, 2284-8, 2132-9 #### [facility] ([id number]) [address] [place] [address] Chloride [Moles/Vol] 108 mmol/L Normal 98-109 [facility] Comment on above: Performed By: #### C BCA, BMP, 57806-2, 7-1, 50623-1, FEPR, THYR, 2276-4, 2284-8, 2131-11 #### [facility] ([id number]) [address] [place] [address] CO2 [Moles/Vol] 25 mmol/L Normal 22-32 [facility] Comment on above: Performed By: #### C BCA, BMP, 03508-2, 7-1, 62763-8, FEPR, THYR, 2276-4, 2284-8, 2131-11 #### [facility] ([id number]) [address] [place] [address] Creatinine [Mass/Vol] 0.69 mg/dL Normal 0.60-1.30 [facility] Comment on above: Result Comment: METH OD TRACEABLE TO IDMS STANDARD Performed By: #### C BCA, BMP, 58801-5, 7-1, 51248-2, FEPR, THYR, 2276-4, 4-8, 2131-11 #### [facility] ([id number]) [address] [place] [address] eGFR (CKD-EPI) NON-RACE DEPENDENT >90 Normal >59 [facility] Comment on above: Result Comment: Reported eGFR is based on the CKD-EPI 2020 equation that does not use a race coefficient. Performed By: #### C BCA, BMP, 32488-6, 7-1, 11520-2, FEPR, THYR, 2276-4, 2284-8, 2131-11 #### [facility] ([id number]) [address] [place] [address] Glucose [Mass/Vol] 123 mg/dL High 65-99 [facility] Comment on above: Performed By: #### C BCA, BMP, 36836-3, 7-1, 20885-4, FEPR, THYR, 2276-4, 2284-8, 2131-11 #### [facility] ([id number]) [address] [place] [address] Potassium [Moles/Vol] 3.6 mmol/L Normal 3.5-5.0 [facility] Comment on above: Performed By: #### C BCA, BMP, 97542-9, 7-1, 19379-6, FEPR, THYR, 2276-4, 2284-8, 2131-11 #### [facility] ([id number]) [address] [place] [address] Sodium [Moles/Vol] 140 mmol/L Normal 134-146 [facility] Comment on above: Performed By: #### C BCA, BMP, 37575-2, 2776-1, 96743-9, FEPR, THYR, 2276-4, 2284-8, 2131-11 #### [facility] ([id number]) [address] [place] [address] Urea nitrogen [Mass/Vol] 8 mg/dL Normal 5-27 [facility] Comment on above: Performed By: #### C BCA, BMP, 36056-3, 7-1, 40281-4, FEPR, THYR, 2276-4, 2284-8, 2131-11 #### [facility] ([id number]) [address] [place] [address] Basic Metabolic Panelon 02--2023 Anion gap [Moles/Vol] 7 mmol/L 5 - 15 mmol/L [facility] Calcium [Mass/Vol] 8.1 mg/dL Low 8.5 - 10. 5 mg/dL [facility] Chloride [Moles/Vol] 108 mmol/L 98 - 10 9 mmol/L [facility] CO2 [Moles/Vol] 25 mmol/L 22 - 32 mmol/L [facility] Creatinine [Mass/Vol] 0.69 mg/dL 0.60 - 1.30 mg/dL [facility] eGFR (CKD-EPI)non-race dependent - PINF [facility] Glucose [Mass/Vol] 123 mg/dL High 65 - 99 mg/dL [facility] Potassium [Moles/Vol] 3.6 mmol/L 3.5 - 5.0 mmol/L [facility] Sodium [Moles/Vol] 140 mmol/L 134 - 146 mmol/L [facility] Urea nitrogen [Mass/Vol] 8 mg/dL 5 - 27 mg/dL [facility] CBC AND AUTO DIFFon 04-14-19 24 ABSOLUTE BASOPHIL 0.0 X10E9/L Normal 0.0-0.2 [facility] Comment on above: Performed By: #### C BCA, BMP, 74105-0, 7-1, 58795-6, FEPR, THYR, 6-4, 2283-8, 2131-11 #### [facility] ([id number]) [address], [address] [place] [address] ABSOLUTE NEUTROPHIL 7.5 X10E9/L High 1.5-6.6 [facility] Comment on above: Performed By: #### C BCA, BMP, 26824-2, 2776-1, 91288-7, FEPR, THYR, 6-4, 4-8, 2131-11 #### [facility] ([id number]) [address], [address] [place] [address] Basophils/100 WBC (Bld) 0.2 % Normal [facility] Comment on above: Performed By: #### C BCA, BMP, 54630-3, 2776-, 02155-7, FEPR, THYR, 6-4, 4-8, 2131-11 #### [facility] ([id number]) [address], [address] [place] [address] Eosinophils (Bld) [#/Vol] 0.1 10*3/uL Normal 0.0-0.4 [facility] Comment on above: Performed By: #### C BCA, BMP, 99863-2, 2776-1, 38626-4, FEPR, THYR, 2276-4, 2284-8, 2131-11 #### [facility] ([id number]) [address], [address] [place] [address] Eosinophils/100 WBC (Bld) 0.9 % Normal [facility] Comment on above: Performed By: #### C BCA, BMP, 33871-5, 2776-, 92594-9, FEPR, THYR, 2276-4, 2284-8, 2131-11 #### [facility] ([id number]) [address], [facility] [address] [place] [address] Erythrocyte distribution width (RBC) [Ratio] 13.1 % Normal 11.5-15.0 [facility] Comment on above: Performed By: #### C BCA, BMP, 81706-3, 2776-, 05962-9, FEPR, THYR, 2276-4, 4-8, 2131-11 #### [facility] ([id number]) [address], [address] [place] [address] Hematocrit (Bld) [Volume fraction] 32.4 % Low 39-49 [facility] Comment on above: Performed By: #### C BCA, BMP, 38321-9, 2776-, 87588-6, FEPR, THYR, 2276-4, 2284-8, 2131-11 #### [facility] ([id number]) [address] [place] [address] Hemoglobin (Bld) [Mass/Vol] 11.2 g/dL Low 13.0-17.0 [facility] Comment on above: Performed By: #### C BCA, BMP, 90603-4, 2776-, 40220-6, FEPR, THYR, 2276-4, 2284-8, 2131-11 #### [facility] ([id number]) [address], [address] [place] [address] Lymphocytes (Bld) [#/Vol] 0.9 10*3/uL Low 1.0-3.5 [facility] Comment on above: Performed By: #### C BCA, BMP, 69774-1, 2776-1, 37793-1, FEPR, THYR, 2276-4, 2283-8, 2131-11 #### [facility] ([id number]) [address] [place] [address] Lymphocytes/100 WBC (Bld) 10.1 % Normal [facility] Comment on above: Performed By: #### C BCA, BMP, 66273-5, 2776-, 05292-5, FEPR, THYR, 6-4, 2283-, 2131-11 #### [facility] ([id number]) [address] [place] [address] MCH (RBC) [Entitic mass] 33.4 pg Normal 27-34 [facility] Comment on above: Performed By: #### C BCA, BMP, 82571-6, 2776-1, 61253-4, FEPR, THYR, 6-4, 2283-8, 2131-11 #### [facility] ([id number]) [address], [address] [place] [address] MCHC (RBC) [Mass/Vol] 34.6 g/dL Normal 32-36 [facility] Comment on above: Performed By: #### C BCA, BMP, 71455-5, 2776-, 50145-9, FEPR, THYR, 2276-4, 2283-8, 2131-11 #### [facility] ([id number]) [address], [address] [place] [address] MCV (RBC) [Entitic vol] 97 fL Normal 80-100 [facility] Comment on above: Performed By: #### C BCA, BMP, 16916-5, 2777-1, 37354-1, FEPR, THYR, 2276-4, 2284-8, 2131-11 #### [facility] ([id number]) [address] [place] [address] Monocytes (Bld) [#/Vol] 0.7 10*3/uL Normal 0-0.9 [facility] Comment on above: Performed By: #### C BCA, BMP, 29241-7, 7-1, 61909-3, FEPR, THYR, 2276-4, 2284-8, 2131-11 #### [facility] ([id number]) [address], [address] [place] [address] Monocytes/100 WBC (Bld) 7.5 % Normal [facility] Comment on above: Performed By: #### C BCA, BMP, 35219-3, 2776-1, 69613-7, FEPR, THYR, 2276-4, 2283-8, 2131-11 #### [facility] ([id number]) [address], [address] [place] [address] Neutrophils/100 WBC (Bld) 81.3 % Normal [facility] Comment on above: Performed By: #### C BCA, BMP, 56658-9, 2776-1, 52037-2, FEPR, THYR, 2276-4, 2284-8, 2131-11 #### [facility] ([id number]) [address], [address] [place] [address] Platelet mean volume (Bld) [Entitic vol] 7.4 fL Normal 7-12 [facility] Comment on above: Performed By: #### C BCA, BMP, 86368-4, 2777-1, 72862-1, FEPR, THYR, 2276-4, 2284-8, 2131-11 #### [facility] ([id number]) [address], [address] [place] [address] Platelets (Bld) [#/Vol] 152 10*3/uL Normal 150-450 [facility] Comment on above: Performed By: #### C BCA, BMP, 75259-0, 7-1, 63297-0, FEPR, THYR, 2276-4, 2283-8, 2131-11 #### [facility] ([id number]) [address] [place] [address] RBC COUNT 3.35 X10E12/L Low 4.10-5.70 [facility] Comment on above: Performed By: #### C BCA, BMP, 52635-5, 7-1, 92661-1, FEPR, THYR, 6-4, 2283-8, 2131-11 #### [facility] ([id number]) [address] [place] [address] WBC (Bld) [#/Vol] 9.2 10*3/uL Normal 4.0-11.0 [facility] Comment on above: Performed By: #### C BCA, BMP, 27018-7, 7-1, 45620-7, FEPR, THYR, 6-4, 2283-8, 2131-11 #### [facility] ([id number]) [address] [place] [address] CBC auto differentialon 04-05 0-2023 Basophils (Bld) [#/Vol] 0.0 10*3/uL [facility] Basophils/100 WBC (Bld) 0.2 % [facility] Eosinophils (Bld) [#/Vol] 0.1 10*3/uL [facility] Eosinophils/100 WBC (Bld) 0.9 % [facility] Erythrocyte distribution width (RBC) [Ratio] 13.1 % 11.5 - 15.0 % [facility] Hematocrit (Bld) [Volume fraction] 32.4 % Low 39 - 49 % [facility] Hemoglobin (Bld) [Mass/Vol] 11.2 g/dL Low 13.0 - 17.0 g/dL [facility] Interpretation and review of laboratory results Abnormal [facility] Lymphocytes (Bld) [#/Vol] 0.9 10*3/uL Low [facility] Lymphocytes/100 WBC (Bld) 10.1 % [facility] MCH (RBC) [Entitic mass] 33.4 pg 27 - 34 pg [facility] MCHC (RBC) [Mass/Vol] 34.6 g/dL 32 - 3 6 g/dL [facility] MCV (RBC) [Entitic vol] 97 fL 80 - 100 fL [facility] Monocytes (Bld) [#/Vol] 0.7 10*3/uL [facility] Monocytes/100 WBC (Bld) 7.5 % [facility] Neutrophils (Bld) [#/Vol] 7.5 10*3/uL High [facility] Neutrophils/100 WBC (Bld) 81.3 % [facility] Platelet mean volume (Bld) [Entitic vol] 7.4 fL 7 - 12 fL [facility] Platelets (Bld) [#/Vol] 152 10*3/uL [facility] RBC (Bld) [#/Vol] 3.35 10*6/uL Low [facility] WBC corrected for nucl RBC Auto (Bld) [#/Vol] 9.2 [facility] MAGNESIUMon 04-14-2023 Magnesium [Mass/Vol] 2.0 mg/dL Normal 1.8-2.6 [facility] Comment on above: Performed By: #### C BCA, BMP, 17012-7, 3797-1, 77866-3, FEPR, THYR, 2276-4, 2284-8, 213-9 #### [facility] ([id number]) [address] [place] [address] Magnesium [Mass/Vol] 1.7 mg/dL Low 1.8-2.6 [facility] Comment on above: Performed By: #### C BCA, BMP, 36476-5, 7-1, 94964-2, FEPR, THYR, 2276-4, 2284-8, 2131-11 #### [facility] ([id number]) [address], [address] [place] [address] Magnesiumon 04-14-2023 Magnesium [Mass/Vol] 2.0 mg/dL 1.8 - 2 .6 mg/dL [facility] Magnesium [Mass/Vol] 1.7 mg/dL Low 1.8 - 2 .6 mg/dL [facility] Magnesium [Mass/Vol]on 04-14 [facility] No Panel Informationon 04-14 Interpretation and review of laboratory results Abnormal [facility] BASIC METABOLIC PANLon 04-13 Anion gap [Moles/Vol] 7 mmol/L Normal 5-15 [facility] Comment on above: Performed By: #### C BCA, BMP, 61120-4, 2776-1, 67568-7, FEPR, THYR, 2276-4, 228-8, 2131-11 #### [facility] ([id number]) [address], [address] [place] [address] Calcium [Mass/Vol] 8.0 mg/dL Low 8.5-10.5 [facility] Comment on above: Performed By: #### C BCA, BMP, 90399-5, 2776-1, 66416-1, FEPR, THYR, 2276-4, 2284-8, 2131-11 #### [facility] ([id number]) [address], [address] [place] [address] Chloride [Moles/Vol] 110 mmol/L High 98-109 [facility] Comment on above: Performed By: #### C BCA, BMP, 83982-3, 7-1, 19707-8, FEPR, THYR, 2276-4, 2284-8, 2131-11 #### [facility] ([id number]) [address], [address] [place] [address] CO2 [Moles/Vol] 27 mmol/L Normal 22-32 [facility] Comment on above: Performed By: #### C BCA, BMP, 98357-3, 7-1, 37963-6, FEPR, THYR, 2276-4, 2283-8, 2131-11 #### [facility] ([id number]) [address], [address] [place] [address] Creatinine [Mass/Vol] 0.60 mg/dL Normal 0.60-1.30 [facility] Comment on above: Result Comment: METH OD TRACEABLE TO IDMS STANDARD Performed By: #### C BCA, BMP, 19598-8, 7-1, 04527-3, FEPR, THYR, 6-4, 2283-10, 2131-11 #### [facility] ([id number]) [address], [address] [place] [address] eGFR (CKD-EPI) NON-RACE DEPENDENT >90 Normal >59 [facility] Comment on above: Result Comment: Reported eGFR is based on the CKD-EPI 2020 equation that does not use a race coefficient. Performed By: #### C BCA, BMP, 54690-0, 7-1, 01435-8, FEPR, THYR, 6-4, 2283-10, 2131-11 #### [facility] ([id number]) [address], [address] [place] [address] Glucose [Mass/Vol] 95 mg/dL Normal 65-99 [facility] Comment on above: Performed By: #### C BCA, BMP, 32643-2, 7-1, 57399-1, FEPR, THYR, 2276-4, 2283-8, 2131-11 #### [facility] ([id number]) [address] [place] [address] Potassium [Moles/Vol] 3.6 mmol/L Normal 3.5-5.0 [facility] Comment on above: Performed By: #### C BCA, BMP, 03383-5, 2777-1, 88809-0, FEPR, THYR, 2276-4, 2284-8, 9 #### [facility] ([id number]) [address] [place] [address] Sodium [Moles/Vol] 144 mmol/L Normal 134-146 [facility] Comment on above: Performed By: #### C BCA, BMP, 09112-4, 7-1, 29789-0, FEPR, THYR, 2276-4, 2284-8, 2131-11 #### [facility] ([id number]) [address] [place] [address] Urea nitrogen [Mass/Vol] 10 mg/dL Normal 5-27 [facility] Comment on above: Performed By: #### C BCA, BMP, 38114-2, 7-1, 38934-3, FEPR, THYR, 2276-4, 2284-8, 2131-9 #### [facility] ([id number]) [address] [place] [address] Basic Metabolic Panelon 02-0 Anion gap [Moles/Vol] 7 mmol/L 5 - 15 mmol/L [facility] Calcium [Mass/Vol] 8.0 mg/dL Low 8.5 - 10. 5 mg/dL [facility] Chloride [Moles/Vol] 110 mmol/L High 98 - 10 9 mmol/L [facility] CO2 [Moles/Vol] 27 mmol/L 22 - 32 mmol/L [facility] Creatinine [Mass/Vol] 0.60 mg/dL 0.60 - 1.30 mg/dL [facility] eGFR (CKD-EPI)non-race dependent - PINF [facility] Glucose [Mass/Vol] 95 mg/dL 65 - 99 mg/dL [facility] Potassium [Moles/Vol] 3.6 mmol/L 3.5 - 5.0 mmol/L [facility] Sodium [Moles/Vol] 144 mmol/L 134 - 146 mmol/L [facility] Urea nitrogen [Mass/Vol] 10 mg/dL 5 - 27 mg/dL [facility] CBC AND AUTO DIFFon 04-13-19 24 ABSOLUTE BASOPHIL 0.0 X10E9/L Normal 0.0-0.2 [facility] Comment on above: Performed By: #### C BCA, BMP, 22570-9, 2776-1, 84015-5, FEPR, THYR, 2276-4, 2284-8, 2131-11 #### [facility] ([id number]) [address] [place] [address] ABSOLUTE NEUTROPHIL 2.4 X10E9/L Normal 1.5-6.6 [facility] Comment on above: Performed By: #### C BCA, BMP, , 2776-, 27002-2, FEPR, THYR, 6-4, 2283-8, 2131-11 #### [facility] ([id number]) [address] [place] [address] Basophils/100 WBC (Bld) 0.8 % Normal [facility] Comment on above: Performed By: #### C BCA, BMP, 66053-0, 2776-, 28925-0, FEPR, THYR, 6-4, 2283-8, 2131-11 #### [facility] ([id number]) [address] [place] [address] Eosinophils (Bld) [#/Vol] 0.2 10*3/uL Normal 0.0-0.4 [facility] Comment on above: Performed By: #### C BCA, BMP, 71198-3, 2776-1, 09242-5, FEPR, THYR, 2276-4, 2284-8, 2131-11 #### [facility] ([id number]) [address] [place] [address] Eosinophils/100 WBC (Bld) 4.7 % Normal [facility] Comment on above: Performed By: #### C BCA, BMP, 56972-0, 7-1, 60665-4, FEPR, THYR, 2276-4, 2284-8, 2131-11 #### [facility] ([id number]) [address] [place] [address] Erythrocyte distribution width (RBC) [Ratio] 13.1 % Normal 11.5-15.0 [facility] Comment on above: Performed By: #### C BCA, BMP, 28825-1, 2776-1, 80357-6, FEPR, THYR, 2276-4, 4-8, 2131-11 #### [facility] ([id number]) [address] [place] [address] Hematocrit (Bld) [Volume fraction] 30.9 % Low 39-49 [facility] Comment on above: Performed By: #### C BCA, BMP, 60227-6, 2776-, 73140-0, FEPR, THYR, 2276-4, 2283-8, 2131-11 #### [facility] ([id number]) [address] [place] [address] Hemoglobin (Bld) [Mass/Vol] 10.6 g/dL Low 13.0-17.0 [facility] Comment on above: Performed By: #### C BCA, BMP, 39059-3, 2776-1, 31144-7, FEPR, THYR, 2276-4, 2284-8, 2131-11 #### [facility] ([id number]) [address] [place] [address] Lymphocytes (Bld) [#/Vol] 1.2 10*3/uL Normal 1.0-3.5 [facility] Comment on above: Performed By: #### C BCA, BMP, 50959-2, 2777-1, 54892-1, FEPR, THYR, 2276-4, 2284-8, 2131-11 #### [facility] ([id number]) [address] [place] [address] Lymphocytes/100 WBC (Bld) 29.1 % Normal [facility] Comment on above: Performed By: #### C BCA, BMP, 93613-0, 7-1, 31321-1, FEPR, THYR, 2276-4, 2284-8, 2131-11 #### [facility] ([id number]) [address] [place] [address] MCH (RBC) [Entitic mass] 33.2 pg Normal 27-34 [facility] Comment on above: Performed By: #### C BCA, BMP, 96778-1, 2776-1, 96209-4, FEPR, THYR, 2276-4, 2283-8, 2131-11 #### [facility] ([id number]) [address] [place] [address] MCHC (RBC) [Mass/Vol] 34.2 g/dL Normal 32-36 [facility] Comment on above: Performed By: #### C BCA, BMP, 51673-8, 2776-1, 18741-4, FEPR, THYR, 2276-4, 4-8, 2131-11 #### [facility] ([id number]) [address] [place] [address] MCV (RBC) [Entitic vol] 97 fL Normal 80-100 [facility] Comment on above: Performed By: #### C BCA, BMP, 05790-6, 2777-1, 66681-5, FEPR, THYR, 2276-4, 2284-8, 2131-11 #### [facility] ([id number]) [address] [place] [address] Monocytes (Bld) [#/Vol] 0.5 10*3/uL Normal 0-0.9 [facility] Comment on above: Performed By: #### C BCA, BMP, 35729-8, 2777-1, 99440-3, FEPR, THYR, 2276-4, 2284-8, 2131-11 #### [facility] ([id number]) [address] [place] [address] Monocytes/100 WBC (Bld) 10.8 % Normal [facility] Comment on above: Performed By: #### C BCA, BMP, 18499-4, 2777-1, 00879-5, FEPR, THYR, 2276-4, 2284-8, 2131-11 #### [facility] ([id number]) [address] [place] [address] Neutrophils/100 WBC (Bld) 54.6 % Normal [facility] Comment on above: Performed By: #### C BCA, BMP, 86164-9, 7-1, 19568-8, FEPR, THYR, 2276-4, 2283-8, 2131-11 #### [facility] ([id number]) [address] [place] [address] Platelet mean volume (Bld) [Entitic vol] 7.6 fL Normal 7-12 [facility] Comment on above: Performed By: #### C BCA, BMP, 57606-6, 2777-1, 80509-3, FEPR, THYR, 2276-4, 2284-8, 2131-11 #### [facility] ([id number]) [address] [place] [address] Platelets (Bld) [#/Vol] 136 10*3/uL Low 150-450 [facility] Comment on above: Performed By: #### C BCA, BMP, 40914-0, 2777-1, 96666-2, FEPR, THYR, 2276-4, 2284-8, 2131-11 #### [facility] ([id number]) [address] [place] [address] RBC COUNT 3.18 X10E12/L Low 4.10-5.70 [facility] Comment on above: Performed By: #### C BCA, BMP, 04228-9, 7-1, 74138-7, FEPR, THYR, 2276-4, 2284-8, 2131-11 #### [facility] ([id number]) [address] [place] [address] WBC (Bld) [#/Vol] 4.3 10*3/uL Normal 4.0-11.0 [facility] Comment on above: Performed By: #### C BCA, BMP, 80423-3, 7-1, 57617-5, FEPR, THYR, 2276-4, 2284-8, 2131-11 #### [facility] ([id number]) [address] [place] [address] CBC auto differentialon Basophils (Bld) [#/Vol] 0.0 10*3/uL [facility] Basophils/100 WBC (Bld) 0.8 % [facility] Eosinophils (Bld) [#/Vol] 0.2 10*3/uL [facility] Eosinophils/100 WBC (Bld) 4.7 % [facility] Erythrocyte distribution width (RBC) [Ratio] 13.1 % 11.5 - 15.0 % [facility] Hematocrit (Bld) [Volume fraction] 30.9 % Low 39 - 49 % [facility] Hemoglobin (Bld) [Mass/Vol] 10.6 g/dL Low 13.0 - 17.0 g/dL [facility] Interpretation and review of laboratory results Abnormal [facility] Lymphocytes (Bld) [#/Vol] 1.2 10*3/uL [facility] Lymphocytes/100 WBC (Bld) 29.1 % [facility] MCH (RBC) [Entitic mass] 33.2 pg 27 - 34 pg [facility] MCHC (RBC) [Mass/Vol] 34.2 g/dL 32 - 3 6 g/dL [facility] MCV (RBC) [Entitic vol] 97 fL 80 - 100 fL [facility] Monocytes (Bld) [#/Vol] 0.5 10*3/uL [facility] Monocytes/100 WBC (Bld) 10.8 % [facility] Neutrophils (Bld) [#/Vol] 2.4 10*3/uL [facility] Neutrophils/100 WBC (Bld) 54.6 % [facility] Platelet mean volume (Bld) [Entitic vol] 7.6 fL 7 - 12 fL [facility] Platelets (Bld) [#/Vol] 136 10*3/uL Low [facility] RBC (Bld) [#/Vol] 3.18 10*6/uL Low [facility] WBC corrected for nucl RBC Auto (Bld) [#/Vol] 4.3 [facility] MAGNESIUMon 04-13-2023 Magnesium [Mass/Vol] 1.6 mg/dL Low 1.8-2.6 [facility] Comment on above: Performed By: #### C BCA, BMP, 92179-3, 6487-1, 33971-4, FEPR, THYR, 2276-4, 2284-8, 2132-9 #### [facility] ([id number]) [address] [place] [address], [address] [place] [address] Magnesiumon 04-13-2023 Magnesium [Mass/Vol] 1.6 mg/dL Low 1.8 - 2 .6 mg/dL [facility] No Panel Informationon 04-13 Interpretation and review of laboratory results Abnormal [facility] PLATELET COUNT AND MPVon Platelet mean volume (Bld) [Entitic vol] 7.2 fL Normal 7-12 [facility] Comment on above: Performed By: #### C BCA, BMP, 29533-7, 2777-1, 47594-1, FEPR, THYR, 2276-4, 228-8, 2131-11 #### [facility] ([id number]) [address], [address] [place] [address] Platelets (Bld) [#/Vol] 149 10*3/uL Low 150-450 [facility] Comment on above: Performed By: #### C BCA, BMP, 10922-0, 7-1, 28572-7, FEPR, THYR, 2276-4, 228-8, 2131-11 #### [facility] ([id number]) [address], [address] [place] [address] PROTIME AND INRon 04-13-2023 INR Coag (PPP) [Relative time] 1.2 {INR} High 0.8-1.1 [facility] Comment on above: Performed By: #### C BCA, BMP, 60149-6, 7-1, 11297-3, FEPR, THYR, 2276-4, 2283-8, 2131-11 #### [facility] ([id number]) [address], [address] [place] [address] PT Coag (PPP) [Time] 14.0 s High 9.8-13.2 [facility] Comment on above: Performed By: #### C BCA, BMP, 08297-6, 2776-1, 20752-3, FEPR, THYR, 2276-4, 2283-8, 2131-11 #### [facility] ([id number]) [address], [address] [place] [address] Platelet counton 04-13-2023 Interpretation and review of laboratory results Abnormal [facility] Platelet mean volume (Bld) [Entitic vol] 7.2 fL 7 - 12 fL [facility] Platelets (Bld) [#/Vol] 149 10*3/uL Low [facility] Protime & INRon 04-13-2023 INR Coag (PPP) [Relative time] 1.2 {INR} High [facility] Interpretation and review of laboratory results Abnormal [facility] PT Coag (PPP) [Time] 14.0 s High [facility] XR ABDOMEN AP 1 VWon 024 XR ABDOMEN AP 1 VW XR ABDOMEN AP 1 VW CLINICAL INFORMATION: Confirm Post-Pyloric Tube Placement; confirmation of cortrak placement TECHNIQUE/PROCEDURE: Supine view abdomen COMPARISON: 02/15/2023 IMPRESSION: Enteric feeding tube tip projects over the left upper quadrant likely at the duodenal jejunal junction. Finalized by Onel Pulido MD on 04/13/2023 1:47 PM Normal [facility] XR Abdomen APon 04-13-2023 [facility] Radiology Study observation (narrative) [facility] XR Abdomen APOrdered By: Arden Pulido on 04-13-2023 [facility] Work Phone: BASIC METABOLIC PANLon 04-12 Anion gap [Moles/Vol] 10 mmol/L Normal 5-15 [facility] Comment on above: Performed By: #### C BCA, 58022-3, CMP #### [facility] ([id number]) [address], [address] [place] [address] Calcium [Mass/Vol] 8.5 mg/dL Normal 8.5-10.5 [facility] Comment on above: Performed By: #### C BCA, 98255-9, CMP #### [facility] ([id number]) [address], [address] [place] [address] Chloride [Moles/Vol] 112 mmol/L High 98-109 [facility] Comment on above: Performed By: #### C BCA, 68858-8, CMP #### [facility] ([id number]) [address], [address] [place] [address] CO2 [Moles/Vol] 23 mmol/L Normal 22-32 [facility] Comment on above: Performed By: #### C BCA, 13466-7, CMP #### [facility] ([id number]) [address] [place] [address] Creatinine [Mass/Vol] 0.71 mg/dL Normal 0.60-1.30 [facility] Comment on above: Result Comment: METH OD TRACEABLE TO IDMS STANDARD Performed By: #### C SEAN, 62340-8, CMP #### [facility] ([id number]) [address] [address] eGFR (CKD-EPI) NON-RACE DEPENDENT >90 Normal >59 [facility] Comment on above: Result Comment: Reported eGFR is based on the CKD-EPI 2020 equation that does not use a race coefficient. Performed By: #### C SEAN, 02152-1, CMP #### [facility] ([id number]) [address] [address] [place] [address] Glucose [Mass/Vol] 81 mg/dL Normal 65-99 [facility] Comment on above: Performed By: #### C BCA, 05330-6, CMP #### [facility] ([id number]) [address] [address] [place] [address] Potassium [Moles/Vol] 3.9 mmol/L Normal 3.5-5.0 [facility] Comment on above: Performed By: #### C BCA, 69999-7, CMP #### [facility] ([id number]) [address] [address] [place] [address] Sodium [Moles/Vol] 145 mmol/L Normal 134-146 [facility] Comment on above: Performed By: #### C BCA, 38597-5, CMP #### [facility] ([id number]) [address] [place] [address] Urea nitrogen [Mass/Vol] 17 mg/dL Normal 5-27 [facility] Comment on above: Performed By: #### C BCA, 47701-3, CMP #### [facility] ([id number]) [address] [place] [address] Basic Metabolic Panelon Anion gap [Moles/Vol] 10 mmol/L 5 - 15 mmol/L [facility] Calcium [Mass/Vol] 8.5 mg/dL 8.5 - 10. 5 mg/dL [facility] Chloride [Moles/Vol] 112 mmol/L High 98 - 10 9 mmol/L [facility] CO2 [Moles/Vol] 23 mmol/L 22 - 32 mmol/L [facility] Creatinine [Mass/Vol] 0.71 mg/dL 0.60 - 1.30 mg/dL [facility] eGFR (CKD-EPI)non-race dependent - PINF [facility] Glucose [Mass/Vol] 81 mg/dL 65 - 99 mg/dL [facility] Potassium [Moles/Vol] 3.9 mmol/L 3.5 - 5.0 mmol/L [facility] Sodium [Moles/Vol] 145 mmol/L 134 - 146 mmol/L [facility] Urea nitrogen [Mass/Vol] 17 mg/dL 5 - 27 mg/dL [facility] CBC AND AUTO DIFFon 04-12-19 ABSOLUTE BASOPHIL 0.0 X10E9/L Normal 0.0-0.2 [facility] Comment on above: Performed By: #### C BCA, 85985-2, CMP #### [facility] ([id number]) [address] [place] [address] ABSOLUTE NEUTROPHIL 3.0 X10E9/L Normal 1.5-6.6 [facility] Comment on above: Performed By: #### Janine BCA, 65861-4, CMP #### [facility] ([id number]) [address] [place] [address] Basophils/100 WBC (Bld) 0.6 % Normal [facility] Comment on above: Performed By: #### Janine ESTRADA, 74286-9, CMP #### [facility] ([id number]) [address] [place] [address] Eosinophils (Bld) [#/Vol] 0.2 10*3/uL Normal 0.0-0.4 [facility] Comment on above: Performed By: #### Janine ESTRADA, 81784-8, CMP #### [facility] ([id number]) [address], [facility] [address] [place] [address] Eosinophils/100 WBC (Bld) 3.5 % Normal [facility] Comment on above: Performed By: #### Janine ESTRADA, 39303-6, CMP #### [facility] ([id number]) [address] [facility] [address] [place] [address] Erythrocyte distribution width (RBC) [Ratio] 13.1 % Normal 11.5-15.0 [facility] Comment on above: Performed By: #### Janine ESTRADA, 79099-2, CMP #### [facility] ([id number]) [address], [facility] [address] [place] [address] Hematocrit (Bld) [Volume fraction] 31.1 % Low 39-49 [facility] Comment on above: Performed By: #### Janine ESTRADA, 01259-2, CMP #### [facility] ([id number]) [address] [facility] [address] [place] [address] Hemoglobin (Bld) [Mass/Vol] 10.7 g/dL Low 13.0-17.0 [facility] Comment on above: Performed By: #### Janine ESTRADA, 81941-5, CMP #### [facility] ([id number]) [address], [facility] [address] [place] [address] Lymphocytes (Bld) [#/Vol] 1.1 10*3/uL Normal 1.0-3.5 [facility] Comment on above: Performed By: #### Janine ESTRADA, 34818-0, CMP #### [facility] ([id number]) [address] [place] [address] Lymphocytes/100 WBC (Bld) 22.7 % Normal [facility] Comment on above: Performed By: #### Janine ESTRADA, 12668-2, CMP #### [facility] ([id number]) [address] [place] [address] MCH (RBC) [Entitic mass] 33.8 pg Normal 27-34 [facility] Comment on above: Performed By: #### Janine ESTRADA, 30101-3, CMP #### [facility] ([id number]) [address] [place] [address] MCHC (RBC) [Mass/Vol] 34.6 g/dL Normal 32-36 [facility] Comment on above: Performed By: #### Janine ESTRADA, 43530-4, CMP #### [facility] ([id number]) [address] [place] [address] MCV (RBC) [Entitic vol] 98 fL Normal 80-100 [facility] Comment on above: Performed By: #### Janine ESTRADA, 19645-8, CMP #### [facility] ([id number]) [address] [place] [address] Monocytes (Bld) [#/Vol] 0.6 10*3/uL Normal 0-0.9 [facility] Comment on above: Performed By: #### Janine ESTRADA, 55488-5, CMP #### [facility] ([id number]) [address] [place] [address] Monocytes/100 WBC (Bld) 11.5 % Normal [facility] Comment on above: Performed By: #### Janine ESTRADA, 05724-7, CMP #### [facility] ([id number]) [address], [facility] [address] [place] [address] Neutrophils/100 WBC (Bld) 61.7 % Normal [facility] Comment on above: Performed By: #### Janine ESTRADA, 89137-9, CMP #### [facility] ([id number]) [address], [facility] [address] [place] [address] Platelet mean volume (Bld) [Entitic vol] 7.1 fL Normal 7-12 [facility] Comment on above: Performed By: #### Janine ESTRADA, 90510-3, CMP #### [facility] ([id number]) [address] [address] Platelets (Bld) [#/Vol] 132 10*3/uL Low 150-450 [facility] Comment on above: Performed By: #### Janine ESTRADA, 25935-0, CMP #### [facility] ([id number]) [address] [address] RBC COUNT 3.18 X10E12/L Low 4.10-5.70 [facility] Comment on above: Performed By: #### Janine ESTRADA, 92977-8, CMP #### [facility] ([id number]) [address] [address] WBC (Bld) [#/Vol] 4.9 10*3/uL Normal 4.0-11.0 [facility] Comment on above: Performed By: #### Janine ESTRADA, 52106-1, CMP #### [facility] ([id number]) [address] [address] CBC auto differentialon Basophils (Bld) [#/Vol] 0.0 10*3/uL [facility] Basophils/100 WBC (Bld) 0.6 % [facility] Eosinophils (Bld) [#/Vol] 0.2 10*3/uL [facility] Eosinophils/100 WBC (Bld) 3.5 % [facility] Erythrocyte distribution width (RBC) [Ratio] 13.1 % 11.5 - 15.0 % [facility] Hematocrit (Bld) [Volume fraction] 31.1 % Low 39 - 49 % [facility] Hemoglobin (Bld) [Mass/Vol] 10.7 g/dL Low 13.0 - 17.0 g/dL [facility] Interpretation and review of laboratory results Abnormal [facility] Lymphocytes (Bld) [#/Vol] 1.1 10*3/uL [facility] Lymphocytes/100 WBC (Bld) 22.7 % [facility] MCH (RBC) [Entitic mass] 33.8 pg 27 - 34 pg [facility] MCHC (RBC) [Mass/Vol] 34.6 g/dL 32 - 3 6 g/dL [facility] MCV (RBC) [Entitic vol] 98 fL 80 - 100 fL [facility] Monocytes (Bld) [#/Vol] 0.6 10*3/uL [facility] Monocytes/100 WBC (Bld) 11.5 % [facility] Neutrophils (Bld) [#/Vol] 3.0 10*3/uL [facility] Neutrophils/100 WBC (Bld) 61.7 % [facility] Platelet mean volume (Bld) [Entitic vol] 7.1 fL 7 - 12 fL [facility] Platelets (Bld) [#/Vol] 132 10*3/uL Low [facility] RBC (Bld) [#/Vol] 3.18 10*6/uL Low [facility] WBC corrected for nucl RBC Auto (Bld) [#/Vol] 4.9 [facility] Cardiac echo study Procedure Ordered By: Miguelito Perkins on 04-12-2023 AI pressure 1/2 time 1475 ms [facility] Work Phone: Aortic root 4.00 cm [facility] Work Phone: AV mean gradient 3.00 mmHg [facility] Work Phone: AV peak gradient 6.66 mmHg [facility] Work Phone: AV peak zaida 129.00 cm/s [facility] Work Phone: AV valve area 3.18 cm2 [facility] Work Phone: AV Velocity Ratio 0.84 [facility] [employer] [facility] Work Phone: AV VTI 35.30 cm [facility] Work Phone: E wave deceleration time 459.00 msec [facility] [employer] [facility] Work Phone: E/A ratio 0.81 [facility] Work Phone: Echo EF Estimated 67 % [facility] [employer] [facility] Work Phone: EF 67 % [facility] Work Phone: Energy loss index 2.25 [facility] Work Phone: Est. RA pressure 3 mmHg [facility] [employer] [facility] Work Phone: FS 40 % 28 - 44 % [facility] Work Phone: Interventricular Septum Diastolic Thickness by 2D 11 cm [facility] [employer] Work Phone: IVS 1.10 cm 0.6 - 1.1 cm [facility] [employer] Work Phone: LA size 4.20 cm [facility] Work Phone: LA Volume Index 32.0 mL/m2 [facility] [employer] [facility] Work Phone: Left Ventricle Mass [id number] g [facility] [employer] [facility] Work Phone: LV Diastolic Volume 80.20 mL [facility] [employer] [facility] Work Phone: LV ESV A2C 68.70 mL [facility] Work Phone: LV ESV A4C 63.80 mL [facility] Work Phone: LV RWT 2D 42.31 [facility] Work Phone: LV Systolic Volume 26.70 mL [facility] Work Phone: LVIDd 5.20 cm 4.49 - 6.23 cm [facility] Work Phone: LVIDs 3.10 cm 2.65 - 4.01 cm [facility] Work Phone: LVOT diameter 2.20 cm [facility] Work Phone: LVOT peak zaida 1.18 m/s [facility] Work Phone: LVOT peak VTI 29.50 cm [facility] Work Phone: LVOT stroke volume 112.14 ml [facility] Work Phone: MV Peak A Zaida 74.40 cm/s [facility] Work Phone: MV Peak E Zaida 60.20 cm/s [facility] Work Phone: MV pressure 1/2 time 134.00 ms [facility] Work Phone: MV TDI E' (medial) 8.59 cm/s [facility] Work Phone: MV valve area p 1/2 method 1.64 cm2 [facility] Work Phone: PW 1.10 cm 0.6 - 1.1 cm [facility] Work Phone: RV Peak Systolic Pressure 32 mmHg [facility] Work Phone: TAPSE 2.63 cm [facility] Work Phone: TDI 10.40 cm/s [facility] Work Phone: TR peak gradient 29.81 mmHg [facility] Work Phone: TR Peak Zaida 2.7 m/s [facility] Work Phone: Valve area - Index 1.6 [facility] [employer] [facility] Work Phone: ZLVIDD -0.17 [facility] Work Phone: ZLVIDS -0.40 [facility] Work Phone: [facility] Work Phone: Cardiac echo study Procedure on 04-12-2023 [facility] Radiology Study observation (narrative) [facility] [employer] FL SWALLOW MOTILITY FUNCTION on 04-12-2023 FL SWALLOW MOTILITY FUNCTION FL SWALLOW MOTILITY FUNCTION FL SWALLOW MOTILITY FUNCTION HISTORY: Oropharyngeal dysphagia COMPARISON: None TECHNIQUE: Video fluoroscopic swallow study was performed in conjunction with speech pathologist. Barium contrast materials of varying consistencies administered. FINDINGS: Fluoroscopy time: 2:26 Reference air kerma: 4.57 mGy Runs: 12 Slight aspiration with all liquid consistencies. Applesauce: One episode of slight aspiration.. Fruit: One episode of slight aspiration. Cracker: No definite penetration or aspiration. IMPRESSION: 1. Abnormal swallow study as detailed above. 2. Please correlate with dedicated speech pathology report for additional details and recommendations. Approved by Resident Bunny Murillo MD on 04/12/2023 9:18 AM I, Irwin Rivera MD have personally reviewed the image(s) and agree with and/or edited the report Finalized by Irwin Rivera MD on 04/12/2023 9:43 AM Normal [facility] MAGNESIUMon 04-12-2023 Magnesium [Mass/Vol] 1.8 mg/dL Normal 1.8-2.6 [facility] Comment on above: Performed By: #### C BCA, BMP, 29552-1, 2777-1, 29738-8, FEPR, THYR, 2276-4, 2284-8, 2131-9 #### [facility] ([id number]) [address] [place] [address] Magnesium [Mass/Vol] 1.6 mg/dL Low 1.8-2.6 [facility] Comment on above: Performed By: #### C BCA, 62613-7, CMP #### [facility] ([id number]) [address] [place] [address] Magnesiumon 04-12-2023 Magnesium [Mass/Vol] 1.8 mg/dL 1.8 - 2 .6 mg/dL [facility] Magnesium [Mass/Vol] 1.6 mg/dL Low 1.8 - 2 .6 mg/dL [facility] Magnesium [Mass/Vol]on 04-12 [facility] No Panel Informationon 04-12 Interpretation and review of laboratory results Abnormal [facility] RF videography Hypopharynx a nd Esophagus Viewson 04-12-2023 SECTRAPACS [facility] Radiology Study observation (narrative) [facility] RF videography Hypopharynx a nd Esophagus ViewsOrdered By: Irwin Rivera on 04-12-2023 [facility] Work Phone: XR CHEST 1 VWon 04-12-2023 XR CHEST 1 VW XR CHEST 1 VW XR CHEST 1 VW History: SOB. Left arm weakness seizures One view study. Comparison: 04/10/2023 Impression: * No significant interval change.Right PICC line remains intact. No focal airspace disease or infiltrate is seen Finalized by Yolanda Alejandre MD on 04/12/2023 4:09 PM Normal [facility] XR Chest Single viewon 04-12 [facility] Study observation (narrative) [facility] XR Chest Single viewOrdered By: Yolanda Alejandre on 04-12-2023 [facility] Work Phone: BASIC METABOLIC PANLon 04-11 Anion gap [Moles/Vol] 9 mmol/L Normal 5-15 [facility] Comment on above: Performed By: #### C SEAN, 37006-9, CMP #### [facility] ([id number]) [address] [place] [address] Calcium [Mass/Vol] 8.5 mg/dL Normal 8.5-10.5 [facility] Comment on above: Performed By: #### C SEAN, 54839-0, CMP #### [facility] ([id number]) [address] [place] [address] Chloride [Moles/Vol] 112 mmol/L High 98-109 [facility] Comment on above: Performed By: #### Janine ESTRADA, 85625-4, CMP #### [facility] ([id number]) [address] [place] [address] CO2 [Moles/Vol] 24 mmol/L Normal 22-32 [facility] Comment on above: Performed By: #### C SEAN, 81641-9, CMP #### [facility] ([id number]) [address] [facility] [address] [place] [address] Creatinine [Mass/Vol] 0.68 mg/dL Normal 0.60-1.30 [facility] Comment on above: Result Comment: METH OD TRACEABLE TO IDMS STANDARD Performed By: #### Janine ESTRADA, 79309-6, CMP #### [facility] ([id number]) [address] [place] [address] eGFR (CKD-EPI) NON-RACE DEPENDENT >90 Normal >59 [facility] Comment on above: Result Comment: Reported eGFR is based on the CKD-EPI 2020 equation that does not use a race coefficient. Performed By: #### Janine ESTRADA, 07461-5, CMP #### [facility] ([id number]) [address] [place] [address] Glucose [Mass/Vol] 80 mg/dL Normal 65-99 [facility] Comment on above: Performed By: #### Janine BCA, 20902-0, CMP #### [facility] ([id number]) [address] [address] [place] [address] Potassium [Moles/Vol] 4.0 mmol/L Normal 3.5-5.0 [facility] Comment on above: Performed By: #### C BCA, 83444-7, CMP #### [facility] ([id number]) [address] [place] [address] Sodium [Moles/Vol] 145 mmol/L Normal 134-146 [facility] Comment on above: Performed By: #### C BCA, 60905-7, CMP #### [facility] ([id number]) [address] [place] [address] Urea nitrogen [Mass/Vol] 14 mg/dL Normal 5-27 [facility] Comment on above: Performed By: #### C BCA, 77945-9, CMP #### [facility] ([id number]) [address] [place] [address] Basic Metabolic Panelon Anion gap [Moles/Vol] 9 mmol/L 5 - 15 mmol/L [facility] Calcium [Mass/Vol] 8.5 mg/dL 8.5 - 10. 5 mg/dL [facility] Chloride [Moles/Vol] 112 mmol/L High 98 - 10 9 mmol/L [facility] CO2 [Moles/Vol] 24 mmol/L 22 - 32 mmol/L [facility] Creatinine [Mass/Vol] 0.68 mg/dL 0.60 - 1.30 mg/dL [facility] eGFR (CKD-EPI)non-race dependent - PINF [facility] Glucose [Mass/Vol] 80 mg/dL 65 - 99 mg/dL [facility] Potassium [Moles/Vol] 4.0 mmol/L 3.5 - 5.0 mmol/L [facility] Sodium [Moles/Vol] 145 mmol/L 134 - 146 mmol/L [facility] Urea nitrogen [Mass/Vol] 14 mg/dL 5 - 27 mg/dL [facility] CBC AND AUTO DIFFon 04-11-19 ABSOLUTE BASOPHIL 0.0 X10E9/L Normal 0.0-0.2 [facility] Comment on above: Performed By: #### C SEAN, 77963-7, CMP #### [facility] ([id number]) [address] [place] [address] ABSOLUTE NEUTROPHIL 4.1 X10E9/L Normal 1.5-6.6 [facility] Comment on above: Performed By: #### Janine ESTRADA, 23578-0, CMP #### [facility] ([id number]) [address] [place] [address] Basophils/100 WBC (Bld) 0.5 % Normal [facility] Comment on above: Performed By: #### Janine ESTRADA, 40792-5, CMP #### [facility] ([id number]) [address] [place] [address] Eosinophils (Bld) [#/Vol] 0.1 10*3/uL Normal 0.0-0.4 [facility] Comment on above: Performed By: #### Janine ESTRADA, 09404-2, CMP #### [facility] ([id number]) [address] [place] [address] Eosinophils/100 WBC (Bld) 1.6 % Normal [facility] Comment on above: Performed By: #### Janine ESTRADA, 19930-9, CMP #### [facility] ([id number]) [address] [place] [address] Erythrocyte distribution width (RBC) [Ratio] 13.1 % Normal 11.5-15.0 [facility] Comment on above: Performed By: #### Janine ESTRADA, 05011-4, CMP #### [facility] ([id number]) [address] [place] [address] Hematocrit (Bld) [Volume fraction] 30.5 % Low 39-49 [facility] Comment on above: Performed By: #### Janine ESTRADA, 44481-6, CMP #### [facility] ([id number]) [address] [place] [address] Hemoglobin (Bld) [Mass/Vol] 10.1 g/dL Low 13.0-17.0 [facility] Comment on above: Performed By: #### Janine ESTRADA, 74309-2, CMP #### [facility] ([id number]) [address] [facility] [address] [place] [address] Lymphocytes (Bld) [#/Vol] 0.9 10*3/uL Low 1.0-3.5 [facility] Comment on above: Performed By: #### Janine ESTRADA, 13437-7, CMP #### [facility] ([id number]) [address] [address] [place] [address] Lymphocytes/100 WBC (Bld) 16.2 % Normal [facility] Comment on above: Performed By: #### Janine ESTRADA, 03714-9, CMP #### [facility] ([id number]) [address] [facility] [address] [place] [address] MCH (RBC) [Entitic mass] 32.9 pg Normal 27-34 [facility] Comment on above: Performed By: #### Janine ESTRADA, 17994-7, CMP #### [facility] ([id number]) [address] [place] [address] MCHC (RBC) [Mass/Vol] 33.2 g/dL Normal 32-36 [facility] Comment on above: Performed By: #### Janine ESTRADA, 27138-7, CMP #### [facility] ([id number]) [address] [address] [place] [address] MCV (RBC) [Entitic vol] 99 fL Normal 80-100 [facility] Comment on above: Performed By: #### Janine ESTRADA, [id number], CMP #### [facility] ([id number]) [address] [place] [address] Monocytes (Bld) [#/Vol] 0.4 10*3/uL Normal 0-0.9 [facility] Comment on above: Performed By: #### Janine ESTRADA, [id number], CMP #### [facility] ([id number]) [address] [place] [address] Monocytes/100 WBC (Bld) 7.9 % Normal [facility] Comment on above: Performed By: #### Janine ESTRADA, [id number], CMP #### [facility] ([id number]) [address] [address] [place] [address] Neutrophils/100 WBC (Bld) 73.8 % Normal [facility] Comment on above: Performed By: #### Janine ESTRADA, 47479-1, CMP #### [facility] ([id number]) [address], [address] [place] [address] Platelet mean volume (Bld) [Entitic vol] 7.1 fL Normal 7-12 [facility] Comment on above: Performed By: #### Janine ESTRADA, 50095-0, CMP #### [facility] ([id number]) [address], [address] [place] [address] Platelets (Bld) [#/Vol] 118 10*3/uL Low 150-450 [facility] Comment on above: Performed By: #### Janine ESTRADA, 83747-7, CMP #### [facility] ([id number]) [address], [address] [place] [address] RBC COUNT 3.08 X10E12/L Low 4.10-5.70 [facility] Comment on above: Performed By: #### Janine ESTRADA, 14736-9, CMP #### [facility] ([id number]) [address], [address] [place] [address] WBC (Bld) [#/Vol] 5.6 10*3/uL Normal 4.0-11.0 [facility] Comment on above: Performed By: #### C BCA, 55430-2, CMP #### [facility] ([id number]) [address] [place] [address] CBC auto differentialon Basophils (Bld) [#/Vol] 0.0 10*3/uL [facility] Basophils/100 WBC (Bld) 0.5 % [facility] Eosinophils (Bld) [#/Vol] 0.1 10*3/uL [facility] Eosinophils/100 WBC (Bld) 1.6 % [facility] Erythrocyte distribution width (RBC) [Ratio] 13.1 % 11.5 - 15.0 % [facility] Hematocrit (Bld) [Volume fraction] 30.5 % Low 39 - 49 % [facility] Hemoglobin (Bld) [Mass/Vol] 10.1 g/dL Low 13.0 - 17.0 g/dL [facility] Interpretation and review of laboratory results Abnormal [facility] Lymphocytes (Bld) [#/Vol] 0.9 10*3/uL Low [facility] Lymphocytes/100 WBC (Bld) 16.2 % [facility] MCH (RBC) [Entitic mass] 32.9 pg 27 - 34 pg [facility] MCHC (RBC) [Mass/Vol] 33.2 g/dL 32 - 3 6 g/dL [facility] MCV (RBC) [Entitic vol] 99 fL 80 - 100 fL [facility] Monocytes (Bld) [#/Vol] 0.4 10*3/uL [facility] Monocytes/100 WBC (Bld) 7.9 % [facility] Neutrophils (Bld) [#/Vol] 4.1 10*3/uL [facility] Neutrophils/100 WBC (Bld) 73.8 % [facility] Platelet mean volume (Bld) [Entitic vol] 7.1 fL 7 - 12 fL [facility] Platelets (Bld) [#/Vol] 118 10*3/uL Low [facility] RBC (Bld) [#/Vol] 3.08 10*6/uL Low [facility] WBC corrected for nucl RBC Auto (Bld) [#/Vol] 5.6 [facility] ECG 12 leadon 04-11-2023 TRACEMASTERVUE [facility] MAGNESIUMon 04-11-2023 Magnesium [Mass/Vol] 2.2 mg/dL Normal 1.8-2.6 [facility] Comment on above: Performed By: #### C BCA, 24155-9, CMP #### [facility] ([id number]) [address], [address] [place] [address] Magnesium [Mass/Vol] 1.6 mg/dL Low 1.8-2.6 [facility] Comment on above: Performed By: #### Janine ESTRADA, 19537-8, CMP #### [facility] ([id number]) [address], [address] [place] [address] Magnesiumon 04-11-2023 Magnesium [Mass/Vol] 2.2 mg/dL 1.8 - 2 .6 mg/dL [facility] Magnesium [Mass/Vol] 1.6 mg/dL Low 1.8 - 2 .6 mg/dL [facility] Magnesium [Mass/Vol]on 04-11 [facility] No Panel Informationon 04-11 Interpretation and review of laboratory results Abnormal [facility] BASIC METABOLIC PANLon 04-10 Anion gap [Moles/Vol] 10 mmol/L Normal 5-15 [facility] Comment on above: Performed By: #### C BCA, 12824-7, CMP #### [facility] ([id number]) [address], [address] [place] [address] Calcium [Mass/Vol] 8.5 mg/dL Normal 8.5-10.5 [facility] Comment on above: Performed By: #### Janine BCA, 30684-6, CMP #### [facility] ([id number]) [address], [address] [place] [address] Chloride [Moles/Vol] 110 mmol/L High 98-109 [facility] Comment on above: Performed By: #### C BCA, 54036-6, CMP #### [facility] ([id number]) [address], [address] [place] [address] CO2 [Moles/Vol] 24 mmol/L Normal 22-32 [facility] Comment on above: Performed By: #### C BCA, 96167-0, CMP #### [facility] ([id number]) [address] [place] [address] Creatinine [Mass/Vol] 0.68 mg/dL Normal 0.60-1.30 [facility] Comment on above: Result Comment: METH OD TRACEABLE TO IDMS STANDARD Performed By: #### C SEAN, 92157-9, CMP #### [facility] ([id number]) [address], [address] [place] [address] eGFR (CKD-EPI) NON-RACE DEPENDENT >90 Normal >59 [facility] Comment on above: Result Comment: Reported eGFR is based on the CKD-EPI 2020 equation that does not use a race coefficient. Performed By: #### C BCA, 14480-7, CMP #### [facility] ([id number]) [address] [place] [address] Glucose [Mass/Vol] 77 mg/dL Normal 65-99 [facility] Comment on above: Performed By: #### C BCA, 70826-2, CMP #### [facility] ([id number]) [address] [place] [address] Potassium [Moles/Vol] 4.0 mmol/L Normal 3.5-5.0 [facility] Comment on above: Performed By: #### C BCA, 22195-7, CMP #### [facility] ([id number]) [address], [address] [place] [address] Sodium [Moles/Vol] 144 mmol/L Normal 134-146 [facility] Comment on above: Performed By: #### C BCA, 92725-7, CMP #### [facility] ([id number]) [address], [address] [place] [address] Urea nitrogen [Mass/Vol] 17 mg/dL Normal 5-27 [facility] Comment on above: Performed By: #### C BCA, 71035-0, CMP #### [facility] ([id number]) [address], [address] [place] [address] Basic Metabolic Panelon Anion gap [Moles/Vol] 10 mmol/L 5 - 15 mmol/L [facility] Calcium [Mass/Vol] 8.5 mg/dL 8.5 - 10. 5 mg/dL [facility] Chloride [Moles/Vol] 110 mmol/L High 98 - 10 9 mmol/L [facility] CO2 [Moles/Vol] 24 mmol/L 22 - 32 mmol/L [facility] Creatinine [Mass/Vol] 0.68 mg/dL 0.60 - 1.30 mg/dL [facility] eGFR (CKD-EPI)non-race dependent - PINF [facility] Glucose [Mass/Vol] 77 mg/dL 65 - 99 mg/dL [facility] Interpretation and review of laboratory results Abnormal [facility] Potassium [Moles/Vol] 4.0 mmol/L 3.5 - 5.0 mmol/L [facility] Sodium [Moles/Vol] 144 mmol/L 134 - 146 mmol/L [facility] Urea nitrogen [Mass/Vol] 17 mg/dL 5 - 27 mg/dL [facility] CBC AND AUTO DIFFon 04-10-19 24 ABSOLUTE BASOPHIL 0.0 X10E9/L Normal 0.0-0.2 [facility] Comment on above: Performed By: #### C BCA, 16490-1, CMP #### [facility] ([id number]) [address], [address] [place] [address] ABSOLUTE NEUTROPHIL 6.0 X10E9/L Normal 1.5-6.6 [facility] Comment on above: Performed By: #### Janine ESTRADA, 09385-6, CMP #### [facility] ([id number]) [address], [address] [place] [address] Basophils/100 WBC (Bld) 0.4 % Normal [facility] Comment on above: Performed By: #### Janine ESTRADA, 72488-0, CMP #### [facility] ([id number]) [address], [address] [place] [address] Eosinophils (Bld) [#/Vol] 0.0 10*3/uL Normal 0.0-0.4 [facility] Comment on above: Performed By: #### Janine ESTRADA, 93165-8, CMP #### [facility] ([id number]) [address], [address] [place] [address] Eosinophils/100 WBC (Bld) 0.5 % Normal [facility] Comment on above: Performed By: #### Janine ESTRADA, 03707-3, CMP #### [facility] ([id number]) [address], [address] [place] [address] Erythrocyte distribution width (RBC) [Ratio] 13.3 % Normal 11.5-15.0 [facility] Comment on above: Performed By: #### Janine ESTRADA, 43834-5, CMP #### [facility] ([id number]) [address], [address] [place] [address] Hematocrit (Bld) [Volume fraction] 31.2 % Low 39-49 [facility] Comment on above: Performed By: #### Janine ESTRADA, 28338-7, CMP #### [facility] ([id number]) [address], [address] [place] [address] Hemoglobin (Bld) [Mass/Vol] 10.8 g/dL Low 13.0-17.0 [facility] Comment on above: Performed By: #### Janine ESTRADA, 99643-7, CMP #### [facility] ([id number]) [address], [address] [place] [address] Lymphocytes (Bld) [#/Vol] 1.2 10*3/uL Normal 1.0-3.5 [facility] Comment on above: Performed By: #### Janine ESTRADA, 08624-5, CMP #### [facility] ([id number]) [address], [facility] [address] [place] [address] Lymphocytes/100 WBC (Bld) 15.1 % Normal [facility] Comment on above: Performed By: #### Janine ESTRADA, 32013-7, CMP #### [facility] ([id number]) [address], [address] [place] [address] MCH (RBC) [Entitic mass] 33.6 pg Normal 27-34 [facility] Comment on above: Performed By: #### Janine ESTRADA, 21169-3, CMP #### [facility] ([id number]) [address], [address] [place] [address] MCHC (RBC) [Mass/Vol] 34.5 g/dL Normal 32-36 [facility] Comment on above: Performed By: #### Janine ESTRADA, 80241-1, CMP #### [facility] ([id number]) [address], [address] [place] [address] MCV (RBC) [Entitic vol] 97 fL Normal 80-100 [facility] Comment on above: Performed By: #### Janine ESTRADA, 43719-6, CMP #### [facility] ([id number]) [address], [address] [place] [address] Monocytes (Bld) [#/Vol] 0.6 10*3/uL Normal 0-0.9 [facility] Comment on above: Performed By: #### Janine ESTRADA, 07896-3, CMP #### [facility] ([id number]) [address], [address] [place] [address] Monocytes/100 WBC (Bld) 7.7 % Normal [facility] Comment on above: Performed By: #### Janine ESTRADA, 58800-8, CMP #### [facility] ([id number]) [address], [address] [place] [address] Neutrophils/100 WBC (Bld) 76.3 % Normal [facility] Comment on above: Performed By: #### Janine ESTRADA, 83425-2, CMP #### [facility] ([id number]) [address], [address] [place] [address] Platelet mean volume (Bld) [Entitic vol] 7.2 fL Normal 7-12 [facility] Comment on above: Performed By: #### Janine ESTRADA, 32644-4, CMP #### [facility] ([id number]) [address], [address] [place] [address] Platelets (Bld) [#/Vol] 148 10*3/uL Low 150-450 [facility] Comment on above: Performed By: #### Janine ESTRADA, 74074-8, CMP #### [facility] ([id number]) [address], [address] [place] [address] RBC COUNT 3.21 X10E12/L Low 4.10-5.70 [facility] Comment on above: Performed By: #### Janine ESTRADA, 88566-2, CMP #### [facility] ([id number]) [address], [address] [place] [address] WBC (Bld) [#/Vol] 7.8 10*3/uL Normal 4.0-11.0 [facility] Comment on above: Performed By: #### Janine ESTRADA, 57379-3, CMP #### [facility] ([id number]) [address] [place] [address] CBC auto differentialon Basophils (Bld) [#/Vol] 0.0 10*3/uL [facility] Basophils/100 WBC (Bld) 0.4 % [facility] Eosinophils (Bld) [#/Vol] 0.0 10*3/uL [facility] Eosinophils/100 WBC (Bld) 0.5 % [facility] Erythrocyte distribution width (RBC) [Ratio] 13.3 % 11.5 - 15.0 % [facility] Hematocrit (Bld) [Volume fraction] 31.2 % Low 39 - 49 % [facility] Hemoglobin (Bld) [Mass/Vol] 10.8 g/dL Low 13.0 - 17.0 g/dL [facility] Interpretation and review of laboratory results Abnormal [facility] Lymphocytes (Bld) [#/Vol] 1.2 10*3/uL [facility] Lymphocytes/100 WBC (Bld) 15.1 % [facility] MCH (RBC) [Entitic mass] 33.6 pg 27 - 34 pg [facility] MCHC (RBC) [Mass/Vol] 34.5 g/dL 32 - 3 6 g/dL [facility] MCV (RBC) [Entitic vol] 97 fL 80 - 100 fL [facility] Monocytes (Bld) [#/Vol] 0.6 10*3/uL [facility] Monocytes/100 WBC (Bld) 7.7 % [facility] Neutrophils (Bld) [#/Vol] 6.0 10*3/uL [facility] Neutrophils/100 WBC (Bld) 76.3 % [facility] Platelet mean volume (Bld) [Entitic vol] 7.2 fL 7 - 12 fL [facility] Platelets (Bld) [#/Vol] 148 10*3/uL Low [facility] RBC (Bld) [#/Vol] 3.21 10*6/uL Low [facility] WBC corrected for nucl RBC Auto (Bld) [#/Vol] 7.8 [facility] FL SMALL BOWELon 04-10-2023 FL SMALL BOWEL FL SMALL BOWEL FL SMALL BOWEL HISTORY: Small bowel obstruction COMPARISON: CT abdomen/pelvis 04/07/2023 FINDINGS: Images: 5 [place] view shows a nonobstructive bowel gas pattern. No definite abnormal calcifications overlying the kidneys or ureters. Normal progression of contrast through the small bowel. The duodenal, jejunal, and ileal mucosal pattern is unremarkable. Contrast appears to be within the ascending colon by 4 hours after ingestion. IMPRESSION: * No evidence of small bowel obstruction. Approved by Resident Bunny Murillo MD on 04/10/2023 3:06 PM I, Stevie Landa MD have personally reviewed the image(s) and agree with and/or edited the report Finalized by Stevie Landa MD on 04/10/2023 3:20 PM Normal [facility] MAGNESIUMon 04-10-2023 Magnesium [Mass/Vol] 1.9 mg/dL Normal 1.8-2.6 [facility] Comment on above: Performed By: #### C SEAN, 63136-1, CMP #### [facility] ([id number]) [address], [address] [place] [address] Magnesiumon 04-10-2023 Magnesium [Mass/Vol] 1.9 mg/dL 1.8 - 2 .6 mg/dL [facility] No Panel Informationon 04-10 [facility] PHOSPHORUSon 04-10-2023 Phosphate [Mass/Vol] 2.8 mg/dL Normal 2.4-4.9 [facility] Comment on above: Performed By: #### C SEAN, 94593-5, CMP #### [facility] ([id number]) [address], [address] [place] [address] Phosphoruson 04-10-2023 Phosphate [Mass/Vol] 2.8 mg/dL 2.4 - 4 .9 mg/dL [facility] RF Small bowel Views W contr ast Lexie 04-10-2023 [facility] Radiology Study observation (narrative) [facility] RF Small bowel Views W contr ast POOrdered By: Stevie Landa on 04-10-2023 [facility] Work Phone: XR CHEST 1 VWon 04-10-2023 XR CHEST 1 VW XR CHEST 1 VW XR CHEST 1 VW 04/10/2023 1:55 PM INDICATION: r/o pneumonia COMPARISON: Priors dating back to 05/14/2020 TECHNIQUE: AP view the chest was obtained FINDINGS: Right-sided PICC with the tip terminating within the expected region of the cavoatrial junction. Nasogastric tube courses below the diaphragm. Distal tip is obscured by enteric contrast. No focal consolidations.There is no pneumothorax. There is no pleural effusion. The cardiomediastinal silhouette is unremarkable. No acute osseous abnormalities. IMPRESSION: No acute cardiopulmonary process. Lines and tubes as above. Finalized by Irwin Hou on 04/10/2023 2:13 PM Normal [facility] XR Chest Single viewon 04-10 [facility] Radiology Study observation (narrative) [facility] [employer] [facility] XR Chest Single viewOrdered By: Irwin Hou on 04-10-2023 [facility] Work Phone: APTTon 04-09-2023 aPTT Coag (PPP) [Time] 29 s Pr [employer] [facility] BASIC METABOLIC PANLon 04-09 Anion gap [Moles/Vol] 10 mmol/L Normal 5-15 [facility] Comment on above: Performed By: #### C BCA, BMP, 01554-5, 2776-1, 67243-7, FEPR, THYR, 2276-4, 2284-8, 2131- #### [facility] ([id number]) [address] [place] [address] Calcium [Mass/Vol] 8.4 mg/dL Low 8.5-10.5 [facility] Comment on above: Performed By: #### C BCA, BMP, 86425-5, 2776-1, 44363-2, FEPR, THYR, 2276-4, 2284-8, 2131-11 #### [facility] ([id number]) [address] [place] [address] Chloride [Moles/Vol] 110 mmol/L High 98-109 [facility] Comment on above: Performed By: #### C BCA, BMP, 90274-9, 7-1, 49520-7, FEPR, THYR, 2276-4, 2284-8, 2131-11 #### [facility] ([id number]) [address] [place] [address] CO2 [Moles/Vol] 25 mmol/L Normal 22-32 [facility] Comment on above: Performed By: #### C BCA, BMP, 95605-1, 7-1, 53329-3, FEPR, THYR, 2276-4, 2284-8, 2131-11 #### [facility] ([id number]) [address] [place] [address] Creatinine [Mass/Vol] 0.78 mg/dL Normal 0.60-1.30 [facility] Comment on above: Result Comment: METH OD TRACEABLE TO IDMS STANDARD Performed By: #### C BCA, BMP, 45178-4, 7-1, 16103-9, FEPR, THYR, 2276-4, 2284-8, 2131-11 #### [facility] ([id number]) [address] [place] [address] eGFR (CKD-EPI) NON-RACE DEPENDENT >90 Normal >59 [facility] Comment on above: Result Comment: Reported eGFR is based on the CKD-EPI 2020 equation that does not use a race coefficient. Performed By: #### C BCA, BMP, 86926-3, 7-1, 12872-4, FEPR, THYR, 2276-4, 2284-8, 2131-11 #### [facility] ([id number]) [address] [place] [address] Glucose [Mass/Vol] 76 mg/dL Normal 65-99 [facility] Comment on above: Performed By: #### C BCA, BMP, 86552-3, 2777-1, 25926-6, FEPR, THYR, 2276-4, 2284-8, 2131-11 #### [facility] ([id number]) [address] [place] [address] Potassium [Moles/Vol] 4.0 mmol/L Normal 3.5-5.0 [facility] Comment on above: Performed By: #### C BCA, BMP, 81598-7, 7-1, 69476-5, FEPR, THYR, 2276-4, 2284-8, 2131-11 #### [facility] ([id number]) [address] [place] [address] Sodium [Moles/Vol] 145 mmol/L Normal 134-146 [facility] Comment on above: Performed By: #### C BCA, BMP, 03188-5, 7-1, 75242-6, FEPR, THYR, 2276-4, 2284-8, 2131-11 #### [facility] ([id number]) [address] [place] [address] Urea nitrogen [Mass/Vol] 19 mg/dL Normal 5-27 [facility] Comment on above: Performed By: #### C BCA, BMP, 44136-8, 7-1, 85756-9, FEPR, THYR, 2276-4, 2284-8, 2131-11 #### [facility] ([id number]) [address] [place] [address] Basic Metabolic Panelon 02-0 -2023 Anion gap [Moles/Vol] 10 mmol/L 5 - 15 mmol/L [facility] Calcium [Mass/Vol] 8.4 mg/dL Low 8.5 - 10. 5 mg/dL [facility] Chloride [Moles/Vol] 110 mmol/L High 98 - 10 9 mmol/L [facility] CO2 [Moles/Vol] 25 mmol/L 22 - 32 mmol/L [facility] Creatinine [Mass/Vol] 0.78 mg/dL 0.60 - 1.30 mg/dL [facility] eGFR (CKD-EPI)non-race dependent - PINF [facility] Glucose [Mass/Vol] 76 mg/dL 65 - 99 mg/dL [facility] Potassium [Moles/Vol] 4.0 mmol/L 3.5 - 5.0 mmol/L [facility] Sodium [Moles/Vol] 145 mmol/L 134 - 146 mmol/L [facility] Urea nitrogen [Mass/Vol] 19 mg/dL 5 - 27 mg/dL [facility] CBC AND AUTO DIFFon 04-09-19 24 ABSOLUTE BASOPHIL 0.0 X10E9/L Normal 0.0-0.2 [facility] Comment on above: Performed By: #### C BCA, BMP, 35968-5, 7-1, 78128-2, FEPR, THYR, 2276-4, 2284-8, 2131-11 #### [facility] ([id number]) [address] [place] [address], [address] [place] [address] ABSOLUTE NEUTROPHIL 5.7 X10E9/L Normal 1.5-6.6 [facility] Comment on above: Performed By: #### C BCA, BMP, 22020-3, 7-1, 39028-1, FEPR, THYR, 2276-4, 2284-8, 2131-11 #### [facility] ([id number]) [address], [address] [place] [address] Basophils/100 WBC (Bld) 0.3 % Normal [facility] Comment on above: Performed By: #### C BCA, BMP, 52238-0, 2777-1, 65211-7, FEPR, THYR, 2276-4, 2284-8, 2131-11 #### [facility] ([id number]) [address], [address] [place] [address] Eosinophils (Bld) [#/Vol] 0.1 10*3/uL Normal 0.0-0.4 [facility] Comment on above: Performed By: #### C BCA, BMP, 83719-7, 7-1, 70118-3, FEPR, THYR, 2276-4, 2284-8, 2131-11 #### [facility] ([id number]) [address], [address] [place] [address] Eosinophils/100 WBC (Bld) 1.2 % Normal [facility] Comment on above: Performed By: #### C BCA, BMP, 87853-9, 7-1, 48272-1, FEPR, THYR, 2276-4, 2283-8, 2131-11 #### [facility] ([id number]) [address], [address] [place] [address] Erythrocyte distribution width (RBC) [Ratio] 13.4 % Normal 11.5-15.0 [facility] Comment on above: Performed By: #### C BCA, BMP, 36022-2, 7-1, 12673-6, FEPR, THYR, 2276-4, 2283-8, 2131-11 #### [facility] ([id number]) [address], [address] [place] [address] Hematocrit (Bld) [Volume fraction] 32.0 % Low 39-49 [facility] Comment on above: Performed By: #### C BCA, BMP, 11807-7, 7-1, 73901-0, FEPR, THYR, 2276-4, 2284-8, 2131-11 #### [facility] ([id number]) [address], [address] [place] [address] Hemoglobin (Bld) [Mass/Vol] 10.9 g/dL Low 13.0-17.0 [facility] Comment on above: Performed By: #### C BCA, BMP, 85281-0, 2777-1, 43815-2, FEPR, THYR, 2276-4, 2284-8, 2131-11 #### [facility] ([id number]) [address], [address] [place] [address] Lymphocytes (Bld) [#/Vol] 1.4 10*3/uL Normal 1.0-3.5 [facility] Comment on above: Performed By: #### C BCA, BMP, 00720-7, 2777-1, 10255-9, FEPR, THYR, 2276-4, 2284-8, 2131-11 #### [facility] ([id number]) [address], [address] [place] [address] Lymphocytes/100 WBC (Bld) 17.9 % Normal [facility] Comment on above: Performed By: #### C BCA, BMP, 64338-2, 7-1, 15965-8, FEPR, THYR, 2276-4, 2283-8, 2131-11 #### [facility] ([id number]) [address], [address] [place] [address] MCH (RBC) [Entitic mass] 33.4 pg Normal 27-34 [facility] Comment on above: Performed By: #### C BCA, BMP, 40475-5, 7-1, 44960-0, FEPR, THYR, 2276-4, 2284-8, 2131-11 #### [facility] ([id number]) [address], [address] [place] [address] MCHC (RBC) [Mass/Vol] 33.9 g/dL Normal 32-36 [facility] Comment on above: Performed By: #### C BCA, BMP, 40600-7, 2777-1, 69932-9, FEPR, THYR, 2276-4, 2284-8, 2131-11 #### [facility] ([id number]) [address], [address] [place] [address] MCV (RBC) [Entitic vol] 99 fL Normal 80-100 [facility] Comment on above: Performed By: #### C BCA, BMP, 20071-6, 7-1, 68798-4, FEPR, THYR, 2276-4, 4-8, 2131-11 #### [facility] ([id number]) [address], [address] [place] [address] Monocytes (Bld) [#/Vol] 0.5 10*3/uL Normal 0-0.9 [facility] Comment on above: Performed By: #### C BCA, BMP, 20459-2, 7-1, 71727-1, FEPR, THYR, 6-4, 2283-, 2131-11 #### [facility] ([id number]) [address] [place] [address] Monocytes/100 WBC (Bld) 6.5 % Normal [facility] Comment on above: Performed By: #### C BCA, BMP, 29999-0, 2776-1, 70596-9, FEPR, THYR, 2275-4, 2283-10, 2131-11 #### [facility] ([id number]) [address], [address] [place] [address] Neutrophils/100 WBC (Bld) 74.1 % Normal [facility] Comment on above: Performed By: #### C BCA, BMP, 75129-1, 7-1, 81972-0, FEPR, THYR, 2276-4, 2283-, 2131-11 #### [facility] ([id number]) [address], [address] [place] [address] Platelet mean volume (Bld) [Entitic vol] 7.2 fL Normal 7-12 [facility] Comment on above: Performed By: #### C BCA, BMP, 14483-7, 7-1, 74321-6, FEPR, THYR, 2276-4, 2284-8, 2131-11 #### [facility] ([id number]) [address], [address] [place] [address] Platelets (Bld) [#/Vol] 153 10*3/uL Normal 150-450 [facility] Comment on above: Performed By: #### C BCA, BMP, 55649-4, 7-1, 01208-4, FEPR, THYR, 2276-4, 2284-8, 2131-11 #### [facility] ([id number]) [address] [place] [address] RBC COUNT 3.25 X10E12/L Low 4.10-5.70 [facility] Comment on above: Performed By: #### C BCA, BMP, 81829-7, 2776-1, 37090-6, FEPR, THYR, 2276-4, 2284-8, 2131-11 #### [facility] ([id number]) [address] [place] [address] WBC (Bld) [#/Vol] 7.8 10*3/uL Normal 4.0-11.0 [facility] Comment on above: Performed By: #### C BCA, BMP, 90941-4, 2776-1, 01669-1, FEPR, THYR, 2276-4, 2284-8, 2131-11 #### [facility] ([id number]) [address], [address] [place] [address] CBC auto differentialon 0 Basophils (Bld) [#/Vol] 0.0 10*3/uL [facility] Basophils/100 WBC (Bld) 0.3 % [facility] Eosinophils (Bld) [#/Vol] 0.1 10*3/uL [facility] Eosinophils/100 WBC (Bld) 1.2 % [facility] Erythrocyte distribution width (RBC) [Ratio] 13.4 % 11.5 - 15.0 % [facility] Hematocrit (Bld) [Volume fraction] 32.0 % Low 39 - 49 % [facility] Hemoglobin (Bld) [Mass/Vol] 10.9 g/dL Low 13.0 - 17.0 g/dL [facility] Interpretation and review of laboratory results Abnormal [facility] Lymphocytes (Bld) [#/Vol] 1.4 10*3/uL [facility] Lymphocytes/100 WBC (Bld) 17.9 % [facility] MCH (RBC) [Entitic mass] 33.4 pg 27 - 34 pg [facility] MCHC (RBC) [Mass/Vol] 33.9 g/dL 32 - 3 6 g/dL [facility] MCV (RBC) [Entitic vol] 99 fL 80 - 100 fL [facility] Monocytes (Bld) [#/Vol] 0.5 10*3/uL [facility] Monocytes/100 WBC (Bld) 6.5 % [facility] Neutrophils (Bld) [#/Vol] 5.7 10*3/uL [facility] Neutrophils/100 WBC (Bld) 74.1 % [facility] Platelet mean volume (Bld) [Entitic vol] 7.2 fL 7 - 12 fL [facility] Platelets (Bld) [#/Vol] 153 10*3/uL [facility] RBC (Bld) [#/Vol] 3.25 10*6/uL Low [facility] WBC corrected for nucl RBC Auto (Bld) [#/Vol] 7.8 [facility] Cobalamin (Vitamin B12) [Mas s/Vol]on 04-09-2023 Interpretation and review of laboratory results Abnormal [facility] FERRITINon 04-09-2023 Ferritin [Mass/Vol] 72 ng/mL Normal 24-336 [facility] Comment on above: Performed By: #### C BCA, 46188-4, CMP #### [facility] ([id number]) [address], [address] [place] [address] Ferritinon 04-09-2023 Ferritin [Mass/Vol] 72 ng/mL 24 - 336 ng/mL [facility] Ferritin [Mass/Vol]on 2023 [facility] Folateon 04-09-2023 Folate [Mass/Vol] ng/mL 5.8 - PINF ng/mL [facility] Folate [Mass/Vol]on 04-09-19 [facility] FOLIC ACID >25.0 Normal >5.8 [facility] Comment on above: Result Comment: NEW REFERENCE RANGE Performed By: #### C BCA, 20379-0, CMP #### [facility] ([id number]) [address], [address] [place] [address] IRON PROFILEon 04-09-2023 Iron [Mass/Vol] 35 ug/dL Low 50-212 [facility] Comment on above: Performed By: #### C BCA, BMP, 54980-0, 2777-1, 57102-0, FEPR, THYR, 2276-4, 2284-8, 2131-11 #### [facility] ([id number]) [address], [address] [place] [address] IRON BINDING 190 ug/dL Low 250-425 [facility] Comment on above: Performed By: #### C BCA, BMP, 89162-9, 2777-1, 01565-8, FEPR, THYR, 2276-4, 2284-8, 2131-11 #### [facility] ([id number]) [address] [place] [address] IRON SATURATION 18 % SATURATION Low 20-50 [facility] Comment on above: Performed By: #### C BCA, BMP, 39185-9, 2777-1, 60390-0, FEPR, THYR, 2276-4, 2284-8, 2131-11 #### [facility] ([id number]) [address], [address] [place] [address] Iron and TIBCon 04-09-2023 Interpretation and review of laboratory results Abnormal [facility] Iron [Mass/Vol] 35 ug/dL Low 50 - 212 ug/dL [facility] Iron binding capacity [Mass/Vol] 190 ug/dL Low 250 - 425 ug/dL [facility] Iron saturation [Mass fraction] 18 Low [facility] MAGNESIUMon 04-09-2023 Magnesium [Mass/Vol] 2.3 mg/dL Normal 1.8-2.6 [facility] Comment on above: Performed By: #### Janine ESTRADA, 31334-9, CMP #### [facility] ([id number]) [address], [address] [place] [address] Magnesium [Mass/Vol] 1.5 mg/dL Low 1.8-2.6 [facility] Comment on above: Performed By: #### C BCA, BMP, 29973-4, 2777-1, 33137-0, FEPR, THYR, 2276-4, 2284-8, 2-9 #### [facility] ([id number]) [address], [address] [place] [address] Magnesiumon 04-09-2023 Magnesium [Mass/Vol] 2.3 mg/dL 1.8 - 2 .6 mg/dL [facility] Magnesium [Mass/Vol] 1.5 mg/dL Low 1.8 - 2 .6 mg/dL [facility] No Panel Informationon 04-09 [facility] Interpretation and review of laboratory results Abnormal [facility] PHOSPHORUSon 04-09-2023 Phosphate [Mass/Vol] 3.1 mg/dL Normal 2.4-4.9 [facility] Comment on above: Performed By: #### Janine ESTRADA, 36015-3, CMP #### [facility] ([id number]) [address] [place] [address] Phosphate [Mass/Vol] 2.3 mg/dL Low 2.4-4.9 [facility] Comment on above: Performed By: #### C BCA, BMP, 28126-3, 7-1, 98282-0, FEPR, THYR, 2276-4, 4-8, 2131-11 #### [facility] ([id number]) [address], [address] [place] [address] Phosphoruson 04-09-2023 Phosphate [Mass/Vol] 3.1 mg/dL 2.4 - 4 .9 mg/dL [facility] Phosphate [Mass/Vol] 2.3 mg/dL Low 2.4 - 4 .9 mg/dL [facility] THYROID PROFILEon 04-09-2023 Free T4 [Mass/Vol] 0.87 ng/dL Normal 0.61-1.60 [facility] Comment on above: Performed By: #### C BCA, BMP, 25750-8, 2776-1, 45996-4, FEPR, THYR, 6-4, 2283-8, 2131-11 #### [facility] ([id number]) [address], [address] [place] [address] TSH 1.03 uIU/mL Normal 0.49-4.67 [facility] Comment on above: Performed By: #### C BCA, BMP, 89650-9, 2776-1, 08891-4, FEPR, THYR, 6-4, 2283-8, 2131-11 #### [facility] ([id number]) [address], [address] [place] [address] Thyroid profile includes TSH FT4on 04-09-2023 Free T4 [Mass/Vol] 0.87 ng/dL 0.61 - 1. 60 ng/dL [facility] TSH Qn 1.03 m[IU]/L [facility] VITAMIN B12on 04-09-2023 Cobalamin (Vitamin B12) [Mass/Vol] 157 pg/mL Low 180-914 [facility] Comment on above: Performed By: #### Janine ESTRADA, 53668-5, CMP #### [facility] ([id number]) [address] [place] [address] Vitamin B12on 04-09-2023 Cobalamin (Vitamin B12) [Mass/Vol] 157 pg/mL Low 180 - 914 pg/mL [facility] aPTT Coag (PPP) [Time]on aPTT Coag (Bld) [Time] 29 s Normal 26-37 [facility] Comment on above: Performed By: #### C BCA, BMP, 18552-3, 2777-1, 22730-4, FEPR, THYR, 2276-4, 2284-8, 2131-11 #### [facility] ([id number]) [address] [place] [address] [facility] CBC AND AUTO DIFFon 04-08-19 24 ABSOLUTE BASOPHIL 0.1 X10E9/L Normal 0.0-0.2 [facility] Comment on above: Performed By: #### Janine ESTRADA, 71750-5, CMP #### [facility] ([id number]) [address] [place] [address] ABSOLUTE NEUTROPHIL 6.1 X10E9/L Normal 1.5-6.6 [facility] Comment on above: Performed By: #### Jnaine ESTRADA, 74946-2, CMP #### [facility] ([id number]) [address] [place] [address] Basophils/100 WBC (Bld) 0.5 % Normal [facility] Comment on above: Performed By: #### Janine ESTRADA, 73048-1, CMP #### [facility] ([id number]) [address] [place] [address] Eosinophils (Bld) [#/Vol] 0.1 10*3/uL Normal 0.0-0.4 [facility] Comment on above: Performed By: #### C SEAN, 48945-2, CMP #### [facility] ([id number]) [address], [address] [place] [address] Eosinophils/100 WBC (Bld) 0.9 % Normal [facility] Comment on above: Performed By: #### Janine ESTRADA, 58198-5, CMP #### [facility] ([id number]) [address], [address] [place] [address] Erythrocyte distribution width (RBC) [Ratio] 13.5 % Normal 11.5-15.0 [facility] Comment on above: Performed By: #### Janine ESTRADA, 27601-7, CMP #### [facility] ([id number]) [address] [place] [address] Hematocrit (Bld) [Volume fraction] 37.7 % Low 39-49 [facility] Comment on above: Performed By: #### Janine ESTRADA, 17492-0, CMP #### [facility] ([id number]) [address] [place] [address] Hemoglobin (Bld) [Mass/Vol] 12.9 g/dL Low 13.0-17.0 [facility] Comment on above: Performed By: #### Janine ESTRADA, 73967-2, CMP #### [facility] ([id number]) [address] [place] [address] Lymphocytes (Bld) [#/Vol] 3.1 10*3/uL Normal 1.0-3.5 [facility] Comment on above: Performed By: #### C SEAN, 97492-9, CMP #### [facility] ([id number]) [address], [address] [place] [address] Lymphocytes/100 WBC (Bld) 30.5 % Normal [facility] Comment on above: Performed By: #### Janine ESTRADA, 61742-6, CMP #### [facility] ([id number]) [address], [address] [place] [address] MCH (RBC) [Entitic mass] 33.3 pg Normal 27-34 [facility] Comment on above: Performed By: #### Janine ESTRADA, 95903-9, CMP #### [facility] ([id number]) [address], [address] [place] [address] MCHC (RBC) [Mass/Vol] 34.3 g/dL Normal 32-36 [facility] Comment on above: Performed By: #### Janine ESTRADA, 12892-8, CMP #### [facility] ([id number]) [address], [address] [place] [address] MCV (RBC) [Entitic vol] 97 fL Normal 80-100 [facility] Comment on above: Performed By: #### Janine ESTRADA, 98629-9, CMP #### [facility] ([id number]) [address] [place] [address] Monocytes (Bld) [#/Vol] 0.9 10*3/uL Normal 0-0.9 [facility] Comment on above: Performed By: #### Janine ESTRADA, 50407-2, CMP #### [facility] ([id number]) [address], [address] [place] [address] Monocytes/100 WBC (Bld) 8.8 % Normal [facility] Comment on above: Performed By: #### Janine ESTRADA, 03593-1, CMP #### [facility] ([id number]) [address] [place] [address] Neutrophils/100 WBC (Bld) 59.3 % Normal [facility] Comment on above: Performed By: #### Janine ESTRADA, 66294-5, CMP #### [facility] ([id number]) [address] [place] [address] Platelet mean volume (Bld) [Entitic vol] 7.3 fL Normal 7-12 [facility] Comment on above: Performed By: #### Janine ESTRADA, 94139-8, CMP #### [facility] ([id number]) [address] [place] [address] Platelets (Bld) [#/Vol] 224 10*3/uL Normal 150-450 [facility] Comment on above: Performed By: #### Janine ESTRADA, 21225-1, CMP #### [facility] ([id number]) [address] [place] [address] RBC COUNT 3.88 X10E12/L Low 4.10-5.70 [facility] Comment on above: Performed By: #### Janine ESTRADA, 35977-1, CMP #### [facility] ([id number]) [address] [place] [address] WBC (Bld) [#/Vol] 10.3 10*3/uL Normal 4.0-11.0 [facility] Comment on above: Performed By: #### Janine ESTRADA, 30967-8, CMP #### [facility] ([id number]) [address] [place] [address] CBC auto differentialon 0 Basophils (Bld) [#/Vol] 0.1 10*3/uL [facility] Basophils/100 WBC (Bld) 0.5 % [facility] Eosinophils (Bld) [#/Vol] 0.1 10*3/uL [facility] Eosinophils/100 WBC (Bld) 0.9 % [facility] Erythrocyte distribution width (RBC) [Ratio] 13.5 % 11.5 - 15.0 % [facility] Hematocrit (Bld) [Volume fraction] 37.7 % Low 39 - 49 % [facility] Hemoglobin (Bld) [Mass/Vol] 12.9 g/dL Low 13.0 - 17.0 g/dL [facility] Interpretation and review of laboratory results Abnormal [facility] Lymphocytes (Bld) [#/Vol] 3.1 10*3/uL [facility] Lymphocytes/100 WBC (Bld) 30.5 % [facility] MCH (RBC) [Entitic mass] 33.3 pg 27 - 34 pg [facility] MCHC (RBC) [Mass/Vol] 34.3 g/dL 32 - 3 6 g/dL [facility] MCV (RBC) [Entitic vol] 97 fL 80 - 100 fL [facility] Monocytes (Bld) [#/Vol] 0.9 10*3/uL [facility] Monocytes/100 WBC (Bld) 8.8 % [facility] Neutrophils (Bld) [#/Vol] 6.1 10*3/uL [facility] Neutrophils/100 WBC (Bld) 59.3 % [facility] Platelet mean volume (Bld) [Entitic vol] 7.3 fL 7 - 12 fL [facility] Platelets (Bld) [#/Vol] 224 10*3/uL [facility] RBC (Bld) [#/Vol] 3.88 10*6/uL Low [facility] WBC corrected for nucl RBC Auto (Bld) [#/Vol] 10.3 [facility] COMPREHENSIVE METABOLIC PANE Santiago 04-08-2023 Albumin [Mass/Vol] 4.1 g/dL Normal 3.2-5.3 [facility] Comment on above: Performed By: #### C SEAN, 29559-8, CMP #### [facility] ([id number]) [address] [place] [address] ALP [Catalytic activity/Vol] 128 U/L Normal 39-130 [facility] Comment on above: Performed By: #### C SEAN, 83738-8, CMP #### [facility] ([id number]) [address] [place] [address] ALT [Catalytic activity/Vol] 14 U/L Normal 0-40 [facility] Comment on above: Performed By: #### C BCA, 96304-0, CMP #### [facility] ([id number]) [address] [place] [address] Anion gap [Moles/Vol] 10 mmol/L Normal 5-15 [facility] Comment on above: Performed By: #### C BCA, 04733-7, CMP #### [facility] ([id number]) [address] [place] [address] AST [Catalytic activity/Vol] 15 U/L Normal 0-41 [facility] Comment on above: Performed By: #### C BCA, 97334-2, CMP #### [facility] ([id number]) [address] [place] [address] Bilirubin [Mass/Vol] 0.6 mg/dL Normal 0.3-1.2 [facility] Comment on above: Performed By: #### C BCA, 82399-9, CMP #### [facility] ([id number]) [address] [place] [address] Calcium [Mass/Vol] 9.1 mg/dL Normal 8.5-10.5 [facility] Comment on above: Performed By: #### C BCA, 55710-5, CMP #### [facility] ([id number]) [address] [place] [address] Chloride [Moles/Vol] 104 mmol/L Normal 98-109 [facility] Comment on above: Performed By: #### C BCA, 23515-1, CMP #### [facility] ([id number]) [address], [address] [place] [address] CO2 [Moles/Vol] 30 mmol/L Normal 22-32 [facility] Comment on above: Performed By: #### C BCA, 20570-5, CMP #### [facility] ([id number]) [address], [address] [place] [address] Creatinine [Mass/Vol] 1.04 mg/dL Normal 0.60-1.30 [facility] Comment on above: Result Comment: METH OD TRACEABLE TO IDMS STANDARD Performed By: #### C BCA, 55820-3, CMP #### [facility] ([id number]) [address], [address] [place] [address] GFR/1.73 sq M.predicted among non-blacks MDRD (S/P/Bld) [Vol rate/Area] 79 mL/min/{1.73_m2} Normal >59 [facility] Comment on above: Result Comment: Reported eGFR is based on the CKD-EPI 2020 equation that does not use a race coefficient. Performed By: #### C BCA, 56091-7, CMP #### [facility] ([id number]) [address], [address] [place] [address] Glucose [Mass/Vol] 95 mg/dL Normal 65-99 [facility] Comment on above: Performed By: #### C BCA, 20213-8, CMP #### [facility] ([id number]) [address], [address] [place] [address] Potassium [Moles/Vol] 4.1 mmol/L Normal 3.5-5.0 [facility] Comment on above: Performed By: #### C BCA, 06751-8, CMP #### [facility] ([id number]) [address], [address] [place] [address] Protein [Mass/Vol] 7.1 g/dL Normal 6.0-8.0 [facility] Comment on above: Performed By: #### C BCA, 61721-6, CMP #### [facility] ([id number]) [address], [address] [place] [address] Sodium [Moles/Vol] 144 mmol/L Normal 134-146 [facility] Comment on above: Performed By: #### C BCA, 77222-1, CMP #### [facility] ([id number]) [address], [address] [place] [address] Urea nitrogen [Mass/Vol] 19 mg/dL Normal 5-27 [facility] Comment on above: Performed By: #### C BCA, 62002-5, CMP #### [facility] ([id number]) [address], [address] [place] [address] Comprehensive metabolic pane santiago 04-08-2023 Albumin [Mass/Vol] 4.1 g/dL 3.2 - 5.3 g/dL [facility] ALP [Catalytic activity/Vol] 128 U/L 39 - 130 U/L [facility] ALT No additional P-5'-P [Catalytic activity/Vol] 14 U/L 0 - 40 U/L [facility] Anion gap [Moles/Vol] 10 mmol/L 5 - 15 mmol/L [facility] AST [Catalytic activity/Vol] 15 U/L 0 - 41 U/L [facility] Bilirubin [Mass/Vol] 0.6 mg/dL 0.3 - 1 .2 mg/dL [facility] Calcium [Mass/Vol] 9.1 mg/dL 8.5 - 10. 5 mg/dL [facility] [facility] Chloride [Moles/Vol] 104 mmol/L 98 - 10 9 mmol/L [facility] CO2 [Moles/Vol] 30 mmol/L 22 - 32 mmol/L [facility] Creatinine [Mass/Vol] 1.04 mg/dL 0.60 - 1.30 mg/dL [facility] eGFR (CKD-EPI)non-race dependent 79 - PINF [facility] Glucose [Mass/Vol] 95 mg/dL 65 - 99 mg/dL [facility] Potassium [Moles/Vol] 4.1 mmol/L 3.5 - 5.0 mmol/L [facility] Protein [Mass/Vol] 7.1 g/dL 6.0 - 8.0 g/dL [facility] Sodium [Moles/Vol] 144 mmol/L 134 - 146 mmol/L [facility] Urea nitrogen [Mass/Vol] 19 mg/dL 5 - 27 mg/dL [facility] Lactate (P simon) [Moles/Vol]o n 04-08-2023 LACTATE W/REFLEX 1.2 mmol/L Normal 0.4-2.0 [facility] Comment on above: Result Comment: Result did not trigger repeat Lactate, re-order if needed. Performed By: #### C SEAN, 88156-5, CMP #### [facility] ([id number]) [address] [place] [address] [facility] Lactate w/ Reflexon 04-08-19 24 Lactate (P simon) [Moles/Vol] 1.2 mmol/L 0.4 - 2.0 mmol/L [facility] XR CHEST 1 VWon 04-08-2023 XR CHEST 1 VW XR CHEST 1 VW XR CHEST 1 VW HISTORY: Abdominal pain, NG tube placement COMPARISON: Chest x-ray 02/15/2023 FINDINGS: Enteric tube terminates above the level of the GE junction. Diffuse gaseous distention of the stomach and both large and small bowel. Visualized lung bases are clear. IMPRESSION: * Enteric tube terminates above the level of the GE junction, recommend advancing 13 cm. Approved by Resident Angel Givens DO on 04/07/2023 10:28 PM I, Juan Torres MD have personally reviewed the image(s) and agree with and/or edited the report Finalized by Juan Torres MD on 04/07/2023 10:32 PM Normal [facility] CBC AND AUTO DIFFon 04-07-19 24 ABSOLUTE BASOPHIL 0.0 X10E9/L Normal 0.0-0.2 [facility] Comment on above: Performed By: #### C SEAN, CMP, 3040-3 #### [facility] ([id number]) [address] [place] [address], [place] [address] ABSOLUTE NEUTROPHIL 11.1 X10E9/L High 1.5-6.6 [facility] Comment on above: Performed By: #### C MAC ESTRADA, 3039- #### [facility] ([id number]) [address] [place] [address] 37620 Basophils/100 WBC (Bld) 0.3 % Normal [facility] Comment on above: Performed By: #### Janine ESTRADA CMP, 3039- #### [facility] ([id number]) [address] [place] [address] 71036 Eosinophils (Bld) [#/Vol] 0.1 10*3/uL Normal 0.0-0.4 [facility] Comment on above: Performed By: #### Janine ESTRADA CMP, 3039-05 #### [facility] ([id number]) [address] [place] [address] 10709 Eosinophils/100 WBC (Bld) 0.7 % Normal [facility] Comment on above: Performed By: #### Janine ESTRADA CMP, 3039-05 #### [facility] ([id number]) [address] [place] [address] 62234 Erythrocyte distribution width (RBC) [Ratio] 13.6 % Normal 11.5-15.0 [facility] Comment on above: Performed By: #### Janine ESTRADA CMP, 3039-05 #### [facility] ([id number]) [address] [place] [address] 46703 Hematocrit (Bld) [Volume fraction] 41.6 % Normal 39-49 [facility] Comment on above: Performed By: #### Janine ESTRADA CMP, 3 #### [facility] ([id number]) [address] [place] [address] 70720 Hemoglobin (Bld) [Mass/Vol] 13.9 g/dL Normal 13.0-17.0 [facility] Comment on above: Performed By: #### Janine ESTRADA CMP, 3 #### [facility] ([id number]) [address] [place] [address] 34200 Lymphocytes (Bld) [#/Vol] 0.9 10*3/uL Low 1.0-3.5 [facility] Comment on above: Performed By: #### Janine ESTRADA CMP, 3039-3 #### [facility] ([id number]) [address] [place] [address] 48267 Lymphocytes/100 WBC (Bld) 6.9 % Normal [facility] Comment on above: Performed By: #### Janine ESTRADA CMP, 3 #### [facility] ([id number]) [address] [place] [address] 59895 MCH (RBC) [Entitic mass] 32.9 pg Normal 27-34 [facility] Comment on above: Performed By: #### Janine ESTRADA [facility], 3 #### [facility] ([id number]) [address] [place] [address] 62102 MCHC (RBC) [Mass/Vol] 33.3 g/dL Normal 32-36 [facility] Comment on above: Performed By: #### Janine ESTRADA [facility], 3 #### [facility] ([id number]) [address] [place] [address] 48568 MCV (RBC) [Entitic vol] 99 fL Normal 80-100 [facility] Comment on above: Performed By: #### Janine ESTRADA [facility], 3 #### [facility] ([id number]) [address] [place] [address] 23949 Monocytes (Bld) [#/Vol] 0.8 10*3/uL Normal 0-0.9 [facility] Comment on above: Performed By: #### Janine ESTRADA CMP, 3039-3 #### [facility] ([id number]) [address] [place] [address] 03936 Monocytes/100 WBC (Bld) 5.9 % Normal [facility] Comment on above: Performed By: #### Janine ESTRADA CMP, 3040-3 #### [facility] ([id number]) [address] [place] [address] 31716 Neutrophils/100 WBC (Bld) 86.2 % Normal [facility] Comment on above: Performed By: #### Janine ESTRADA CMP, 3039-3 #### [facility] ([id number]) [address] [place] [address] 89949 Platelet mean volume (Bld) [Entitic vol] 7.2 fL Normal 7-12 [facility] Comment on above: Performed By: #### Janine ESTRADA CMP, 3039-3 #### [facility] ([id number]) [address] [place] [address] 31940 Platelets (Bld) [#/Vol] 227 10*3/uL Normal 150-450 [facility] Comment on above: Performed By: #### Janine ESTRADA CMP, 3039-3 #### [facility] ([id number]) [address] [place] [address] 96112 RBC COUNT 4.21 X10E12/L Normal 4.10-5.70 [facility] Comment on above: Performed By: #### Janine ESTRADA CMP, 3039-3 #### [facility] ([id number]) [address] [place] [address] 71132 WBC (Bld) [#/Vol] 12.9 10*3/uL High 4.0-11.0 [facility] Comment on above: Performed By: #### Janine ESTRADA CMP, 3039-3 #### [facility] ([id number]) [address] [place] [address] COMPREHENSIVE METABOLIC PANE Santiago 04-07-2023 Albumin [Mass/Vol] 4.6 g/dL Normal 3.2-5.3 [facility] Comment on above: Performed By: #### C BCA, CMP, 3039-3 #### [facility] ([id number]) [address] [place] [address] 02468 ALP [Catalytic activity/Vol] 145 U/L High 39-130 [facility] Comment on above: Performed By: #### C BCA, CMP, 3039-3 #### [facility] ([id number]) [address] [place] [address] 47634 ALT [Catalytic activity/Vol] 22 U/L Normal 0-40 [facility] Comment on above: Performed By: #### C BCA, CMP, 3039-3 #### [facility] ([id number]) [address] [place] [address] 95697 Anion gap [Moles/Vol] 9 mmol/L Normal 5-15 [facility] Comment on above: Performed By: #### C BCA, CMP, 3039-3 #### [facility] ([id number]) [address] [place] [address] 36770 AST [Catalytic activity/Vol] 19 U/L Normal 0-41 [facility] Comment on above: Performed By: #### C BCA, CMP, 3039-3 #### [facility] ([id number]) [address] [place] [address] 29042 Bilirubin [Mass/Vol] 0.6 mg/dL Normal 0.3-1.2 [facility] Comment on above: Performed By: #### C BCA, CMP, 3039-3 #### [facility] ([id number]) [address] [place] [address] 05287 Calcium [Mass/Vol] 9.3 mg/dL Normal 8.5-10.5 [facility] Comment on above: Performed By: #### C BCA, CMP, 3039-3 #### [facility] ([id number]) [address] [place] [address] 92610 Chloride [Moles/Vol] 100 mmol/L Normal 98-109 [facility] Comment on above: Performed By: #### C MAC ESTRADA, 3040-3 #### [facility] ([id number]) [address] [place] [address] 59261 CO2 [Moles/Vol] 27 mmol/L Normal 22-32 [facility] Comment on above: Performed By: #### Janine ESTRADA CMP, 3040-3 #### [facility] ([id number]) [address] [place] [address] 58416 Creatinine [Mass/Vol] 1.23 mg/dL High 0.70-1.20 [facility] Comment on above: Result Comment: METH OD TRACEABLE TO IDMS STANDARD Performed By: #### Janine ESTRADA CMP, 3040-3 #### [facility] ([id number]) [address] [place] [address] 12285 GFR/1.73 sq M.predicted among non-blacks MDRD (S/P/Bld) [Vol rate/Area] 64 mL/min/{1.73_m2} Normal >59 [facility] Comment on above: Result Comment: Reported eGFR is based on the CKD-EPI 2020 equation that does not use a race coefficient. Performed By: #### C MAC ESTRADA, 3040-3 #### [facility] ([id number]) [address] [place] [address] 42093 Glucose [Mass/Vol] 102 mg/dL High 65-99 [facility] Comment on above: Performed By: #### Janine ESTRADA CMP, 3040-3 #### [facility] ([id number]) [address] [place] [address] 83788 Potassium [Moles/Vol] 4.0 mmol/L Normal 3.5-5.0 [facility] Comment on above: Performed By: #### Janine ESTRADA CMP, 3040-3 #### [facility] ([id number]) [address] [place] [address] 88791 Protein [Mass/Vol] 8.2 g/dL High 6.0-8.0 [facility] Comment on above: Performed By: #### C BCA, CMP, 3040-3 #### [facility] ([id number]) [address] [place] [address] 99704 Sodium [Moles/Vol] 136 mmol/L Normal 134-146 [facility] Comment on above: Performed By: #### C BCA, [facility], 3040-3 #### [facility] ([id number]) [address] [place] [address] 47361 Urea nitrogen [Mass/Vol] 22 mg/dL Normal 5-27 [facility] Comment on above: Performed By: #### C BCA, [facility], 3040-3 #### [facility] ([id number]) [address] [place] [address] ABDOMEN AND PELVIS W CONT on 04-07-2023 CT ABDOMEN AND PELVIS W CONT CT ABDOMEN AND PELVIS W CONT CT ABDOMEN AND PELVIS WITH CONTRAST CLINICAL INFORMATION: Acute nonlocalized abdominal pain TECHNIQUE: Multidetector spiral CT scan of the abdomen and pelvis was performed following the uneventful administration of nonionic intravenous contrast. Coronal and sagittal reformatted images were obtained and reviewed. Automated exposure control was utilized. Following the intravenous injection of 100 cc of Omnipaque 300, a CT of the abdomen and pelvis and sagittal and coronal reformats obtained. All CT scans at this facility use dose modulation, iterative reconstruction, and/or weight based dosing when appropriate to reduce radiation dose to as low as reasonably achievable. COMPARISON: CT dated 01/29/2021 FINDINGS: Haziness in the dependent lower lungs. Massive dilatation of the stomach and multiple dilated small bowel loops suspicious for obstruction in the mid small bowel, the transition zone is difficult to determine and it could be more than one area of transition. No focal lesions seen in the liver, spleen, adrenal glands, or pancreas. There is a lenticular shaped abnormality along the posterior aspect of the left kidney with peripheral calcification, not significantly changed, consistent with benign etiology, no follow-up required. No free fluid. IMPRESSION: 1. Distended the stomach and multiple small bowel loops suspicious for obstruction in the mid small bowel. Finalized by Huey Shaffer MD on 04/07/2023 9:48 PM Normal [facility] LIPASEon 04-07-2023 Lipase [Catalytic activity/Vol] 39 U/L Normal 17-40 [facility] Comment on above: Performed By: #### C BCA, CMP, 3040-3 #### [facility] ([id number]) [address] [place] [address] 17515 PSA, Screeningon 03-21-2023 Prostatic Spec. Ag 0.30 ng/mL Normal 0.00-4.00 [facility] Comment on above: Result Comment: The Em ECLIA assay is used. Results obtained with different assay methods cannot be used interchangeably. Performed By: #### R EJEC, IPF, CDP #### [facility] [address] [place] [address] Control Cabinet Assembler: David oMntez MD Cult,Bloodon 02-17-2023 Cult,Blood Specimen Description .BLOOD Special Requests Culture NO GROWTH 5 DAYS Report Status FINAL 02/16/2023 Normal [facility] Comment on above: Performed By: #### B MPX, PRCAL #### [facility] [address] [place] [address] Control Cabinet Assembler: Chencho Olvera MD BLOOD CULTUREon 02-15-2023 Bacteria identified Aer cx Nom (Bld) SPECIMEN NOTES fem stick CULTURE RESULTS NO GROWTH 5 DAYS Normal [facility] Comment on above: Performed By: #### 1 7928-3 #### [facility] ([id number]) [address] [place] [address] 54862 Basic Metab w/rfx MGon 02-13 Anion gap [Moles/Vol] 13 mmol/L Normal 9-17 [facility] Comment on above: Performed By: #### C BC, BMPX #### [facility] [address] [place] [address] 62284 Control Cabinet Assembler: Chencho Olvera MD Calcium [Mass/Vol] 8.2 mg/dL Low 8.6-10.4 [facility] Comment on above: Performed By: #### C BC, BMPX #### [facility] [address] [place] [address]80 Control Cabinet Assembler: Chencho Olvera MD Chloride [Moles/Vol] 101 mmol/L Normal 98-107 [facility] Comment on above: Performed By: #### C BC, BMPX #### [facility] [address] [place] [address] 34302 Control Cabinet Assembler: Chencho Olvera MD CO2 [Moles/Vol] 23 mmol/L Normal 20-31 [facility] Comment on above: Performed By: #### C BC, BMPX #### [facility] [address] [place] [address] 38405 Control Cabinet Assembler: Chencho Olvera MD Creatinine [Mass/Vol] 0.8 mg/dL Normal 0.7-1.2 [facility] Comment on above: Performed By: #### C BC, BMPX #### [address] [address] Control Cabinet Assembler: Chencho Olvera MD GFR/1.73 sq M.predicted among non-blacks MDRD (S/P/Bld) [Vol rate/Area] mL/min/{1.73_m2} Normal >60 [facility] Comment on above: Result Comment: These results are not intended for use in patients <18 years of age. eGFR results are calculated without a race factor using the 2020 CKD-EPI equation. Careful clinical correlation is recommended, particularly when comparing to results calculated using previous equations. The CKD-EPI equation is less accurate in patients with extremes of muscle mass, extra-renal metabolism of creatine, excessive creatine ingestion, or following therapy that affects renal tubular secretion. Performed By: #### C BC, BMPX #### [facility] [address] [place] [address] Control Cabinet Assembler: Chencho Olvera MD Glucose [Mass/Vol] 104 mg/dL High 70-99 [facility] Comment on above: Performed By: #### C BC, BMPX #### [facility] [address] [place] [address] 11481 Control Cabinet Assembler: Chencho Olvera MD Potassium [Moles/Vol] 3.7 mmol/L Normal 3.7-5.3 [facility] Comment on above: Performed By: #### C BC, BMPX #### [facility] [address] [place] [address] 89191 Control Cabinet Assembler: Chencho Olvera MD Sodium [Moles/Vol] 137 mmol/L Normal 135-144 [facility] Comment on above: Performed By: #### C BC, BMPX #### [facility] [address] [place] [address] 58724 Control Cabinet Assembler: Chencho Olvera MD Urea nitrogen [Mass/Vol] 12 mg/dL Normal 8-23 [facility] Comment on above: Performed By: #### C BC, BMPX #### [facility] [address] [place] [address] 36398 Control Cabinet Assembler: Chencho Olvera MD CBCon 02-13-2023 Erythrocyte distribution width (RBC) [Ratio] 12.5 % Normal 11.8-14.4 [facility] Comment on above: Performed By: #### C BC, BMPX #### [facility] [address] [place] [address] 88295 Control Cabinet Assembler: Chencho Olvera MD Hematocrit (Bld) [Volume fraction] 30.9 % Low 40.7-50.3 [facility] Comment on above: Performed By: #### C BC, BMPX #### [facility] [place] [address] Control Cabinet Assembler: Chencho Olvera MD Hemoglobin (Bld) [Mass/Vol] 9.8 g/dL Low 13.0-17.0 [facility] Comment on above: Performed By: #### C BC, BMPX #### [address] [address] Control Cabinet Assembler: Chencho Olvera MD MCH (RBC) [Entitic mass] 33.1 pg Normal 25.2-33.5 [facility] Comment on above: Performed By: #### C BC, BMPX #### [facility] [address] [place] [address] 67561 Control Cabinet Assembler: Chencho Olvera MD MCHC (RBC) [Mass/Vol] 31.7 g/dL Normal 28.4-34.8 [facility] Comment on above: Performed By: #### C BC, BMPX #### [address] [address] Control Cabinet Assembler: Chencho Olvera MD MCV (RBC) [Entitic vol] 104.4 fL High 82.6-102.9 [facility] Comment on above: Performed By: #### C BC, BMPX #### [facility] [address] [place] [address] 10712 Control Cabinet Assembler: Chencho Olvera MD NRBC Automated 0.0 per 100 WBC Normal 0.0 [facility] Comment on above: Performed By: #### C BC, BMPX #### [address] [address] Control Cabinet Assembler: Chencho Olvera MD Platelet mean volume (Bld) [Entitic vol] 9.9 fL Normal 8.1-13.5 [facility] Comment on above: Performed By: #### C BC, BMPX #### [facility] [address] [place] [address] 70582 Control Cabinet Assembler: Cehncho Olvera MD Platelets (Bld) [#/Vol] 142 10*3/uL Normal 138-453 [facility] Comment on above: Performed By: #### C BC, BMPX #### [facility] [address] [place] [address] Control Cabinet Assembler: Chencho Olvera MD RBC (Bld) [#/Vol] 2.96 10*6/uL Low 4.21-5.77 [facility] Comment on above: Performed By: #### C BC, BMPX #### [facility] [address] [place] [address] Control Cabinet Assembler: Chencho Olvera MD WBC (Bld) [#/Vol] 7.9 10*3/uL Normal 3.5-11.3 [facility] Comment on above: Performed By: #### C BC, BMPX #### [facility] [address] [place] [address] Control Cabinet Assembler: Chencho Olvera MD XR CHEST PORTABLEon 02-14-20 XR CHEST PORTABLE EXAMINATION: ONE XRAY VIEW OF THE CHEST 02/13/2023 6:30 am COMPARISON: February 11, 2023 HISTORY: ORDERING SYSTEM PROVIDED HISTORY: cough TECHNOLOGIST PROVIDED HISTORY: cough FINDINGS: There is poor inspiration with crowding of the bronchovascular markings. Stable right perihilar infiltrate. Possible small left-sided pleural effusion. No pneumothorax. Stable cardiac and mediastinal silhouettes. IMPRESSION: Stable appearance of the chest. Interpreted by: Alex Alvarado MD Signed by: Alex Alvarado MD 02/13/23 Final result Normal [facility] Basic Metab w/rfx MGon 02-12 Anion gap [Moles/Vol] 10 mmol/L Normal 9-17 [facility] Comment on above: Performed By: #### B MPX, PRCAL #### [address] [address] Control Cabinet Assembler: Chencho Olvera MD Calcium [Mass/Vol] 8.2 mg/dL Low 8.6-10.4 [facility] Comment on above: Performed By: #### B MPX, PRCAL #### [address] [address] Control Cabinet Assembler: Chencho Olvera MD Chloride [Moles/Vol] 100 mmol/L Normal 98-107 [facility] Comment on above: Performed By: #### B MPX, PRCAL #### [address] [address] Control Cabinet Assembler: Chencho Olvera MD CO2 [Moles/Vol] 26 mmol/L Normal 20-31 [facility] Comment on above: Performed By: #### B MPX, PRCAL #### [address] [address] Control Cabinet Assembler: Chencho Olvera MD Creatinine [Mass/Vol] 0.9 mg/dL Normal 0.7-1.2 [facility] Comment on above: Performed By: #### B LAWX, PRCAL #### [address] [address] Control Cabinet Assembler: hCencho Olvera MD GFR/1.73 sq M.predicted among non-blacks MDRD (S/P/Bld) [Vol rate/Area] mL/min/{1.73_m2} Normal >60 [facility] Comment on above: Result Comment: These results are not intended for use in patients <18 years of age. eGFR results are calculated without a race factor using the 2020 CKD-EPI equation. Careful clinical correlation is recommended, particularly when comparing to results calculated using previous equations. The CKD-EPI equation is less accurate in patients with extremes of muscle mass, extra-renal metabolism of creatine, excessive creatine ingestion, or following therapy that affects renal tubular secretion. Performed By: #### B MPX, PRCAL #### [address] [address] Control Cabinet Assembler: Chencho Olvera MD Glucose [Mass/Vol] 96 mg/dL Normal 70-99 [facility] Comment on above: Performed By: #### B MPX, PRCAL #### [facility] [address] [place] [address] Control Cabinet Assembler: Chencho Olvera MD Potassium [Moles/Vol] 3.8 mmol/L Normal 3.7-5.3 [facility] Comment on above: Performed By: #### B MPX, PRCAL #### [facility] [address] [place] [address] Control Cabinet Assembler: Chencho Olvera MD Sodium [Moles/Vol] 136 mmol/L Normal 135-144 [facility] Comment on above: Performed By: #### B MPX, PRCAL #### [facility] [address] [place] [address] 7[address] Control Cabinet Assembler: Chencho Olvera MD Urea nitrogen [Mass/Vol] 13 mg/dL Normal 8-23 [facility] Comment on above: Performed By: #### B MPX, PRCAL #### [facility] [address] [place] [address] Control Cabinet Assembler: Chencho Olvera MD Lactate, Sepsison 02-12-2023 Lactic Acid,Sep Wbld 1.4 mmol/L Normal 0.5-1.9 [facility] Comment on above: Performed By: #### L ACDS #### [address] [address] Control Cabinet Assembler: Chencho Olvera MD Procalcitoninon 02-12-2023 Procalcitonin 0.12 ng/mL High <0.09 [facility] Comment on above: Result Comment: Suspected Sepsis: <0.50 ng/mL Low likelihood of sepsis. 0.50-2.00 ng/mL Increased likelihood of sepsis. Antibiotics encouraged. >2.00 ng/mL High risk of sepsis/shock. Antibiotics strongly encouraged. Suspected Lower Resp Tract Infections: <0.24 ng/mL Low likelihood of bacterial infection. >0.24 ng/mL Increased likelihood of bacterial infection. Antibiotics encouraged. With successful antibiotic therapy, PCT levels should decrease rapidly. (Half-life of 24 to 36 hours.) Procalcitonin values from samples collected within the first 6 hours of systemic infection may still be low. Retesting may be indicated. Values from day 1 and day 4 can be entered into the Change in Procalcitonin Calculator (www.ahlpkn-jsy-kjgxdmzdgw.Single Digits) to determine the patient's Mortality Risk Prognosis In healthy neonates, plasma Procalcitonin (PCT) concentrations increase gradually after , reaching peak values at about 24 hours of age then decrease to normal values below 0.5 ng/mL by 48-72 hours of age. Performed By: #### B MPX, PRCAL #### [facility] [address] [place] [address] Control Cabinet Assembler: Chencho Olvera MD Basic Metab w/rfx MGon 02-11 Anion gap [Moles/Vol] 12 mmol/L Normal 9-17 [facility] Comment on above: Performed By: #### P TUMERX, CDP #### [facility] [address] [place] [address] Control Cabinet Assembler: Chencho Olvera MD Calcium [Mass/Vol] 8.6 mg/dL Normal 8.6-10.4 [facility] Comment on above: Performed By: #### P T BMPX, CDP #### [facility] [address] [place] [address] Control Cabinet Assembler: Chencho Olvera MD Chloride [Moles/Vol] 103 mmol/L Normal 98-107 [facility] Comment on above: Performed By: #### P T BMPX, CDP #### [facility] [address] [place] [id number] Control Cabinet Assembler: hCencho Olvera MD CO2 [Moles/Vol] 23 mmol/L Normal 20-31 [facility] Comment on above: Performed By: #### P T BMPX, CDP #### [facility] [address] [place] [address] Control Cabinet Assembler: Chencho Olvera MD Creatinine [Mass/Vol] 0.8 mg/dL Normal 0.7-1.2 [facility] Comment on above: Performed By: #### P T BMPX, CDP #### [facility] [address] [place] [address] 25022 Control Cabinet Assembler: Chencho Olvera MD GFR/1.73 sq M.predicted among non-blacks MDRD (S/P/Bld) [Vol rate/Area] mL/min/{1.73_m2} Normal >60 [facility] Comment on above: Result Comment: These results are not intended for use in patients <18 years of age. eGFR results are calculated without a race factor using the 2020 CKD-EPI equation. Careful clinical correlation is recommended, particularly when comparing to results calculated using previous equations. The CKD-EPI equation is less accurate in patients with extremes of muscle mass, extra-renal metabolism of creatine, excessive creatine ingestion, or following therapy that affects renal tubular secretion. Performed By: #### P TANGELA, CDP #### [address] [address] Control Cabinet Assembler: Chencho Olvera MD Glucose [Mass/Vol] 82 mg/dL Normal 70-99 [facility] Comment on above: Performed By: #### P T BMPX, CDP #### [facility] [address] [place] [address] Control Cabinet Assembler: Chencho Olvera MD Potassium [Moles/Vol] 4.2 mmol/L Normal 3.7-5.3 [facility] Comment on above: Performed By: #### P T BMPX, CDP #### [facility] [address] [place] [address] Control Cabinet Assembler: Chencho Olvera MD Sodium [Moles/Vol] 138 mmol/L Normal 135-144 [facility] Comment on above: Performed By: #### P T, BMPX, CDP #### [place] [address] Control Cabinet Assembler: Chencho Olvera MD Urea nitrogen [Mass/Vol] 13 mg/dL Normal 8-23 [facility] Comment on above: Performed By: #### P T, BMPX, CDP #### [place] [address] Control Cabinet Assembler: Chencho Olvera MD CBC with Diffon 02-11-2023 Abs. Basophil 0.00 k/uL Normal 0.0-0.2 [facility] Comment on above: Performed By: #### P T, BMPX, CDP #### [place] [address] Control Cabinet Assembler: Chencho Olvera MD Abs.Imm.Granulocyte 0.00 k/uL Normal 0.00-0.30 [facility] Comment on above: Performed By: #### P T, BMPX, CDP #### [place] [address] Control Cabinet Assembler: Chencho Olvera MD Abs.Neutrophil (Seg) 7.28 k/uL Normal 1.8-7.7 [facility] Comment on above: Performed By: #### P T, BMPX, CDP #### [place] [address] Control Cabinet Assembler: Chencho Olvera MD Basophils/100 WBC (Bld) 0 % Normal 0-2 [facility] Comment on above: Performed By: #### P T, BMPX, CDP #### [place] [address] Control Cabinet Assembler: Chencho Olvera MD Eosinophils (Bld) [#/Vol] 0.00 10*3/uL Normal 0.0-0.4 [facility] Comment on above: Performed By: #### P T, BMPX, CDP #### [facility] [address] [place] [address] 365[address] Control Cabinet Assembler: Chencho Olvera MD Eosinophils/100 WBC (Bld) 0 % Low 1-4 [facility] Comment on above: Performed By: #### P T, BMPX, CDP #### [facility] [address] [place] [address] Control Cabinet Assembler: Chencho Olvera MD Immature granulocytes/100 WBC (Bld) 0 % Normal 0 [facility] Comment on above: Performed By: #### P T, BMPX, CDP #### [facility] [address] [place] [address] 155[address] Control Cabinet Assembler: Chencho Olvera MD Lymphocytes (Bld) [#/Vol] 1.00 10*3/uL Normal 1.0-4.8 [facility] Comment on above: Performed By: #### P T, BMPX, CDP #### [facility] [address] [place] [address] Control Cabinet Assembler: Chencho Olvera MD Lymphocytes/100 WBC (Bld) 11 % Low 24-44 [facility] Comment on above: Performed By: #### P T, BMPX, CDP #### [facility] [address] [place] [address] Control Cabinet Assembler: Chencho Olvera MD Monocytes (Bld) [#/Vol] 0.82 10*3/uL High 0.1-0.8 [facility] Comment on above: Performed By: #### P T, BMPX, CDP #### [facility] [address] [place] [address] Control Cabinet Assembler: Chencho Olvera MD Monocytes/100 WBC (Bld) 9 % High 1-7 [facility] Comment on above: Performed By: #### P T, BMPX, CDP #### [facility] [address] [place] [address] 08951 Control Cabinet Assembler: Chencho Olvera MD Morphology Harsh (Bld) [Interp] MACROCYTOSIS PRESENT Normal [facility] Comment on above: Performed By: #### P T, BMPX, CDP #### [facility] [address] [place] [address] 9[address] Control Cabinet Assembler: Chencho Olvera MD Neutrophil (Seg) 80 % High 36-66 [facility] Comment on above: Performed By: #### P T, BMPX, CDP #### [facility] [address] [place] [address] 11659 Control Cabinet Assembler: Chencho Olvera MD Erythrocyte distribution width (RBC) [Ratio] 12.9 % Normal 11.8-14.4 [facility] Comment on above: Performed By: #### P T, BMPX, CDP #### [facility] [address] [place] [address] 7[address] Control Cabinet Assembler: Chencho Olvera MD Hematocrit (Bld) [Volume fraction] 34.6 % Low 40.7-50.3 [facility] Comment on above: Performed By: #### P T, BMPX, CDP #### [facility] [address] [place] [address] 10376 Control Cabinet Assembler: Chencho Olvera MD Hemoglobin (Bld) [Mass/Vol] 10.9 g/dL Low 13.0-17.0 [facility] Comment on above: Performed By: #### P T, BMPX, CDP #### [facility] [address] [place] [address] 17518 Control Cabinet Assembler: Chencho Olvera MD MCH (RBC) [Entitic mass] 32.9 pg Normal 25.2-33.5 [facility] Comment on above: Performed By: #### P T, BMPX, CDP #### [facility] [address] [place] [address] 6[address]44 Control Cabinet Assembler: Chencho Olvera MD MCHC (RBC) [Mass/Vol] 31.5 g/dL Normal 28.4-34.8 [facility] Comment on above: Performed By: #### P T, BMPX, CDP #### [address] [address] Control Cabinet Assembler: Chencho Olvera MD MCV (RBC) [Entitic vol] 104.5 fL High 82.6-102.9 [facility] Comment on above: Performed By: #### P T, BMPX, CDP #### [address] [address] Control Cabinet Assembler: Chencho Olvera MD NRBC Automated 0.0 per 100 WBC Normal 0.0 [facility] Comment on above: Performed By: #### P T, BMPX, CDP #### [facility] [address] [place] [address] 15658 Control Cabinet Assembler: Chencho Olvera MD Platelet mean volume (Bld) [Entitic vol] 9.5 fL Normal 8.1-13.5 [facility] Comment on above: Performed By: #### P T, BMPX, CDP #### [facility] [address] [place] [address]399 Control Cabinet Assembler: Chencho Olvera MD Platelets (Bld) [#/Vol] 133 10*3/uL Low 138-453 [facility] Comment on above: Performed By: #### P T, BMPX, CDP #### [facility] [address] [place] [address] 9[address] Control Cabinet Assembler: Chencho Olvera MD RBC (Bld) [#/Vol] 3.31 10*6/uL Low 4.21-5.77 [facility] Comment on above: Performed By: #### P T, BMPX, CDP #### [facility] [address] [place] [address] [phone] Control Cabinet Assembler: Chencho Olvera MD WBC (Bld) [#/Vol] 9.1 10*3/uL Normal 3.5-11.3 [facility] Comment on above: Performed By: #### UMER VergaraX, CDP #### [address] [phone] Control Cabinet Assembler: Chencho Olvera MD Lactate, Sepsison 02-11-2023 Lactic Acid,Sep Wbld 1.7 mmol/L Normal 0.5-1.9 [facility] Comment on above: Performed By: #### B MPX, PRCAL #### [address] [phone] Control Cabinet Assembler: Chencho Olvera MD PTon 02-11-2023 INR Coag (PPP) [Relative time] 1.5 {INR} Normal [facility] Comment on above: Result Comment: Therapeutic Range: Moderate Anticoagulant Intensity: INR = 2.0-3.0 High Anticoagulant Intensity: INR = 2.5-3.5 Performed By: #### ANGELA Vergara, CDP #### [address] [phone] Control Cabinet Assembler: Chencho Olvera MD PT Coag (PPP) [Time] 17.4 s High 11.7-14.9 [facility] Comment on above: Performed By: #### UMER VergaraX, CDP #### [address] [phone] Control Cabinet Assembler: Chencho Olvera MD XR ABDOMEN (KUB) (SINGLE AP VIEW)on 02-11-2023 XR ABDOMEN (KUB) (SINGLE AP VIEW) EXAMINATION: ONE SUPINE XRAY VIEW(S) OF THE ABDOMEN 02/11/2023 9:19 am COMPARISON: None. HISTORY: ORDERING SYSTEM PROVIDED HISTORY: SBO TECHNOLOGIST PROVIDED HISTORY: SBO FINDINGS: There is gas noted in nondistended small bowel loops and colon. There are no abnormal calcifications or masses. Osteophytes are noted in the the lower thoracic and in the lumbar spine. IMPRESSION: Nonspecific bowel gas pattern with gas noted in in nondistended small bowel loops and colon. No suggestion of bowel obstruction. Interpreted by: Subhash Garcia MD Signed by: Subhash Garcia MD 02/11/23 Final result Normal [facility] XR CHEST PORTABLEon 02-12-20 XR CHEST PORTABLE EXAMINATION: ONE XRAY VIEW OF THE CHEST 02/11/2023 9:19 am COMPARISON: 02/10/2023 HISTORY: ORDERING SYSTEM PROVIDED HISTORY: cough TECHNOLOGIST PROVIDED HISTORY: cough FINDINGS: Enteric tube terminates in the stomach. New right lower lobe patchy pulmonary opacity. The left lung is clear. There is no effusion or pneumothorax. The cardiomediastinal silhouette is without acute process. The osseous structures are without acute process. Cervical stimulator leads with generator in the left chest wall. IMPRESSION: New right lower lobe patchy pulmonary opacity representing pneumonia or atelectasis. Interpreted by: Wellington Lucero MD Signed by: Wellington Lucero MD 02/11/23 Final result Normal [facility] CBC with Diffon 02-10-2023 Abs. Basophil 0.03 k/uL Normal 0.00-0.20 [facility] Comment on above: Performed By: #### L MIESHA MILLER #### [facility] [address] [place] [phone] Control Cabinet Assembler: Chencho Olvera MD #### CP #### [facility] [address] [place] [address]25 Control Cabinet Assembler: Hadley Smith MD Abs. Eosinophil <0.03 Normal 0.00-0.44 [facility] Comment on above: Performed By: #### L MIESHA MILLER #### [facility] [address] [place] [address] 19978 Control Cabinet Assembler: Chencho Olvera MD #### CP #### [facility] [address] [place] [address] 13581 Control Cabinet Assembler: Hadley Smith MD Abs.Imm.Granulocyte 0.05 k/uL Normal 0.00-0.30 [facility] Comment on above: Performed By: #### L MIESHA MILLER #### [address] [address] Control Cabinet Assembler: Chencho Olvera MD #### CP #### [facility] [address] [place] [address] 85681 Control Cabinet Assembler: Hadley Smith MD Abs.Neutrophil (Seg) 10.43 k/uL High 1.50-8.10 [facility] Comment on above: Performed By: #### L MIESHA MILLER #### [address] [address] Control Cabinet Assembler: Chencho Olvera MD #### CP #### [facility] [address] [place] [address] 11763 Control Cabinet Assembler: Hadley Smith MD Basophils/100 WBC (Bld) 0 % Normal 0-2 [facility] Comment on above: Performed By: #### L MIESHA MILLER #### [address] [address] Control Cabinet Assembler: Chencho Olvera MD #### CP #### [facility] [address] [place] [address] 84048 Control Cabinet Assembler: Hadley Smith MD Eosinophils/100 WBC (Bld) 0 % Low 1-4 [facility] Comment on above: Performed By: #### L MIESHA MILLER #### [address] [address] Control Cabinet Assembler: Chencho Olvera MD #### CP #### [facility] [address] [place] [address] 6[address]96 Control Cabinet Assembler: Hadley Smith MD Erythrocyte distribution width (RBC) [Ratio] 12.8 % Normal 11.8-14.4 [facility] Comment on above: Performed By: #### L MIESHA MILLER #### [address] [address] Control Cabinet Assembler: Chencho Olvera MD #### CP #### [facility] [address] [place] [address] 01218 Control Cabinet Assembler: Hadley Smith MD Hematocrit (Bld) [Volume fraction] 33.2 % Low 40.7-50.3 [facility] Comment on above: Performed By: #### L MIESHA MILLER #### [address] [address] Control Cabinet Assembler: Chencho Olvera MD #### CP #### [facility] [address] [place] [address] 66542 Control Cabinet Assembler: Hadley Smith MD Hemoglobin (Bld) [Mass/Vol] 11.0 g/dL Low 13.0-17.0 [facility] Comment on above: Performed By: #### MIESHA LAGUNA #### [address] [address] Control Cabinet Assembler: Chencho Olvera MD #### CP #### [facility] [address] [place] [address] 35933 Control Cabinet Assembler: Hadley Smith MD Immature granulocytes/100 WBC (Bld) 0 % Normal 0 [facility] Comment on above: Performed By: #### L ANGELA CDP #### [address] [address] Control Cabinet Assembler: Chencho Olvera MD #### CP #### [facility] [address] [place] [address] 94640 Control Cabinet Assembler: Hadley Smith MD Lymphocytes (Bld) [#/Vol] 1.27 10*3/uL Normal 1.10-3.70 [facility] Comment on above: Performed By: #### L ANGELA CDP #### [address] [address] Control Cabinet Assembler: Chencho Olvera MD #### CP #### [facility] [address] [place] [address] 14608 Control Cabinet Assembler: Hadley Smith MD Lymphocytes/100 WBC (Bld) 10 % Low 24-43 [facility] Comment on above: Performed By: #### L ANGELA CDP #### [address] [phone] Control Cabinet Assembler: Chencho Olvera MD #### CP #### [facility] [address] [place] [address] 6[address]01 Control Cabinet Assembler: Hadley Smith MD MCH (RBC) [Entitic mass] 33.2 pg Normal 25.2-33.5 [facility] Comment on above: Performed By: #### L ANGELA CDP #### [address] [address] Control Cabinet Assembler: Chencho Olvera MD #### CP #### [facility] [address] [place] [address] 19253 Control Cabinet Assembler: Hadley Smith MD MCHC (RBC) [Mass/Vol] 33.1 g/dL Normal 28.4-34.8 [facility] Comment on above: Performed By: #### L ANGELA, CDP #### [address] [address] Control Cabinet Assembler: Chencho Olvera MD #### CP #### [facility] [address] [place] [address] Control Cabinet Assembler: Hadley Smith MD MCV (RBC) [Entitic vol] 100.3 fL Normal 82.6-102.9 [facility] Comment on above: Performed By: #### L ANGELA, CDP #### [address] [address] Control Cabinet Assembler: Chencho Olvera MD #### CP #### [facility] [address] [place] [address] 60453 Control Cabinet Assembler: Hadley Smith MD Monocytes (Bld) [#/Vol] 0.57 10*3/uL Normal 0.10-1.20 [facility] Comment on above: Performed By: #### L ANGELA CDP #### [address] [address] Control Cabinet Assembler: Chencho Olvera MD #### CP #### [facility] [address] [place] [address] 51936 Control Cabinet Assembler: Hadley Smith MD Monocytes/100 WBC (Bld) 5 % Normal 3-12 [facility] Comment on above: Performed By: #### L ANGELA CDP #### [address] [address] Control Cabinet Assembler: Chencho Olvera MD #### CP #### [facility] [address] [place] [address] Control Cabinet Assembler: Hadley Smith MD Neutrophil (Seg) 85 % High 36-65 [facility] Comment on above: Performed By: #### L ACTDMITRIY, CDP #### [address] [address] Control Cabinet Assembler: Chencho Olvera MD #### CP #### [facility] [address] [place] [address] Control Cabinet Assembler: Hadley Smith MD NRBC Automated 0.0 per 100 WBC Normal 0.0 [facility] Comment on above: Performed By: #### L ACTDMITRIY, CDP #### [address] [address] Control Cabinet Assembler: Chencho Olvera MD #### CP #### [facility] [address] [place] [address] 65406 Control Cabinet Assembler: Hadley Smith MD Platelet mean volume (Bld) [Entitic vol] 9.3 fL Normal 8.1-13.5 [facility] Comment on above: Performed By: #### L ANGELA CDP #### [address] [address] Control Cabinet Assembler: Chencho Olvera MD #### CP #### [facility] [address] [place] [address] 94650 Control Cabinet Assembler: Hadley Smith MD Platelets (Bld) [#/Vol] 169 10*3/uL Normal 138-453 [facility] Comment on above: Performed By: #### L ANGELA, CDP #### [address] [address] Control Cabinet Assembler: Chencho Olvera MD #### CP #### [facility] [address] [place] [address] 25525 Control Cabinet Assembler: Hadley Smith MD RBC (Bld) [#/Vol] 3.31 10*6/uL Low 4.21-5.77 [facility] Comment on above: Performed By: #### L ACTDMITRIY, CDP #### [address] [address] Control Cabinet Assembler: Chencho Olvera MD #### CP #### [facility] [address] [place] [address] Control Cabinet Assembler: Hadley Smith MD WBC (Bld) [#/Vol] 12.4 10*3/uL High 3.5-11.3 [facility] Comment on above: Performed By: #### L MIESHA MILLER #### [address] [address] Control Cabinet Assembler: Chencho Olvera MD #### CP #### [facility] [address] [place] [address] Control Cabinet Assembler: Hadley Smith MD Comp Metabolic Profon 2022 Albumin [Mass/Vol] 3.7 g/dL Normal 3.5-5.2 [facility] Comment on above: Performed By: #### B MPX, PRCAL #### [address] [address] Control Cabinet Assembler: Chencho Olvera MD Alkaline Phos 114 U/L Normal 40-129 [facility] Comment on above: Performed By: #### B MPX, PRCAL #### [address] [address] Control Cabinet Assembler: Chencho Olvera MD ALT [Catalytic activity/Vol] 16 U/L Normal 5-41 [facility] Comment on above: Performed By: #### B MPX, PRCAL #### [address] [address] Control Cabinet Assembler: Chencho Olvera MD Anion gap [Moles/Vol] 11 mmol/L Normal 9-17 [facility] Comment on above: Performed By: #### B MPX, PRCAL #### [address] [address] Control Cabinet Assembler: Chencho Olvera MD AST [Catalytic activity/Vol] 16 U/L Normal <40 [facility] Comment on above: Performed By: #### B MPX, PRCAL #### [facility] [address] [place] [address] Control Cabinet Assembler: Chencho Olvera MD Bilirubin [Mass/Vol] 0.4 mg/dL Normal 0.3-1.2 [facility] Comment on above: Performed By: #### B MPX, PRCAL #### [facility] [address] [place] [address] Control Cabinet Assembler: Chencho Olvera MD BUN/CRE Ratio 19 Normal 9-20 [facility] Comment on above: Performed By: #### B MPX, PRCAL #### [facility] [address] [place] [address] Control Cabinet Assembler: Chencho Olvera MD Calcium [Mass/Vol] 8.8 mg/dL Normal 8.6-10.4 [facility] Comment on above: Performed By: #### B MPX, PRCAL #### [facility] [address] [place] [address] Control Cabinet Assembler: Chencho Olvera MD Chloride [Moles/Vol] 103 mmol/L Normal 98-107 [facility] Comment on above: Performed By: #### B MPX, PRCAL #### [facility] [address] [place] [address] Control Cabinet Assembler: Chencho Olvera MD CO2 [Moles/Vol] 26 mmol/L Normal 20-31 [facility] Comment on above: Performed By: #### B MPX, PRCAL #### [facility] [address] [place] [address] 486[address] Control Cabinet Assembler: Chencho Olvera MD Creatinine [Mass/Vol] 1.0 mg/dL Normal 0.7-1.2 [facility] Comment on above: Performed By: #### B MPX, PRCAL #### [facility] [address] [place] [address] Control Cabinet Assembler: Chencho Olvera MD GFR/1.73 sq M.predicted among non-blacks MDRD (S/P/Bld) [Vol rate/Area] mL/min/{1.73_m2} Normal >60 [facility] Comment on above: Result Comment: These results are not intended for use in patients <18 years of age. eGFR results are calculated without a race factor using the 2020 CKD-EPI equation. Careful clinical correlation is recommended, particularly when comparing to results calculated using previous equations. The CKD-EPI equation is less accurate in patients with extremes of muscle mass, extra-renal metabolism of creatine, excessive creatine ingestion, or following therapy that affects renal tubular secretion. Performed By: #### B MPX, PRCAL #### [address] [address] Control Cabinet Assembler: Chencho Olvera MD Glucose [Mass/Vol] 120 mg/dL High 70-99 [facility] Comment on above: Performed By: #### B MPX PRCAL #### [facility] [address] [place] [address] Control Cabinet Assembler: Chencho Olvera MD Potassium [Moles/Vol] 4.0 mmol/L Normal 3.7-5.3 [facility] Comment on above: Performed By: #### B LAWX, PRCAL #### [facility] [address] [place] [address] Control Cabinet Assembler: Chencho Olvera MD Protein [Mass/Vol] 6.3 g/dL Low 6.4-8.3 [facility] Comment on above: Performed By: #### B MPX, PRCAL #### [facility] [address] [place] [address] Control Cabinet Assembler: Chencho Olvera MD Sodium [Moles/Vol] 140 mmol/L Normal 135-144 [facility] Comment on above: Performed By: #### B MPX, PRCAL #### [facility] [address] [place] [address] Control Cabinet Assembler: Chencho Olvera MD Urea nitrogen [Mass/Vol] 19 mg/dL Normal 8- [facility] Comment on above: Performed By: #### B MPX, PRCAL #### [facility] [address] [place] [address] Control Cabinet Assembler: Chencho Olvera MD Lactic Acidon 02-10-2023 Lactic Acid,Whole Bl 1.1 mmol/L Normal 0.7-2.1 [facility] Comment on above: Performed By: #### L ACTIC, CDP #### [facility] [address] [place] [address] Control Cabinet Assembler: Chencho Olvera MD #### CP #### [facility] [address] [place], [place] [phone] Control Cabinet Assembler: Hadley Simth MD XR CHEST PORTABLEon 02-11-20 XR CHEST PORTABLE EXAMINATION: ONE XRAY VIEW OF THE CHEST 02/10/2023 3:45 pm COMPARISON: 06/12/2022 HISTORY: ORDERING SYSTEM PROVIDED HISTORY: rule out aspiration. TECHNOLOGIST PROVIDED HISTORY: rule out aspiration. FINDINGS: NG tube with tip in the stomach. Stable stimulating device with distal portion overlying the left neck. Mild left basilar opacities suggesting atelectasis or infiltrate. Possible small left pleural effusion. There is no pneumothorax. The cardiomediastinal silhouette is stable. The osseous structures are stable. IMPRESSION: Mild left basilar opacities suggesting atelectasis or infiltrate.. Interpreted by: Melchor Mota MD Signed by: Melchor Mota MD 02/10/23 Final result Normal [facility] Occult Blood, Fecalon 2022 Occult Blood 1 Negative Normal NEG [facility] Comment on above: Performed By: #### R EJEC, IPF, CDP #### [facility] [address] [place] [address] Control Cabinet Assembler: David Montez MD Specimen 1 Date [id number] Normal [facility] Comment on above: Performed By: #### R ANNE MARIE IPF, CDP #### [facility] [address] [place] [address] [place] [address] Control Cabinet Assembler: David Montez MD Specimen 1 Time 0730 [facility] Comment on above: Performed By: #### R ANNE MARIE IPF, CDP #### [facility] [facility] [address] [place] [address] Control Cabinet Assembler: David Montez MD CBC with Diffon 01-10-2023 Abs. Basophil 0.04 k/uL Normal 0.00-0.20 [facility] Comment on above: Performed By: #### C DP, CMPX #### [address] [place] [address] Control Cabinet Assembler: David Montez MD Abs.Imm.Granulocyte <0.03 Normal 0.00-0.30 [facility] Comment on above: Performed By: #### C DP, CMPX #### [address] [place], [place] [address] Control Cabinet Assembler: David Montez MD Abs.Neutrophil (Seg) 5.04 k/uL Normal 1.50-8.10 [facility] Comment on above: Performed By: #### C DP, CMPX #### [address] [place], [place] [address] Control Cabinet Assembler: David Montez MD Basophils/100 WBC (Bld) 1 % Normal 0-2 [facility] Comment on above: Performed By: #### C DP, CMPX #### [address] [place] [id number] Control Cabinet Assembler: David Montez MD Eosinophils (Bld) [#/Vol] 0.14 10*3/uL Normal 0.00-0.44 [facility] Comment on above: Performed By: #### C DP, CMPX #### [facility] [address] [place], [place] [address] Control Cabinet Assembler: David Montez MD Eosinophils/100 WBC (Bld) 2 % Normal 1-4 [facility] Comment on above: Performed By: #### C DP, CMPX #### [address] [place], [facility]83 Control Cabinet Assembler: David Montez MD Erythrocyte distribution width (RBC) [Ratio] 13.0 % Normal 11.8-14.4 [facility] Comment on above: Performed By: #### C DP, CMPX #### [address] [place], [facility]83 Control Cabinet Assembler: David Montez MD Hematocrit (Bld) [Volume fraction] 40.0 % Low 40.7-50.3 [facility] Comment on above: Performed By: #### C DP, CMPX #### [address] [place], [facility]83 Control Cabinet Assembler: David Montez MD Hemoglobin (Bld) [Mass/Vol] 12.9 g/dL Low 13.0-17.0 [facility] Comment on above: Performed By: #### C DP, CMPX #### [address] [place], [facility]83 Control Cabinet Assembler: David Montez MD Immature granulocytes/100 WBC (Bld) 0 % Normal 0 [facility] Comment on above: Performed By: #### C DP, CMPX #### [address] [place], [facility]83 Control Cabinet Assembler: David Montez MD Lymphocytes (Bld) [#/Vol] 1.37 10*3/uL Normal 1.10-3.70 [facility] Comment on above: Performed By: #### C DP, CMPX #### [address] [place], [facility]83 Control Cabinet Assembler: David Montez MD Lymphocytes/100 WBC (Bld) 19 % Low 24-43 [facility] Comment on above: Performed By: #### C DP, CMPX #### [facility] [address] [place], [facility]83 Control Cabinet Assembler: David Montez MD MCH (RBC) [Entitic mass] 32.5 pg Normal 25.2-33.5 [facility] Comment on above: Performed By: #### C DP, CMPX #### [facility] [address] [place] [address] Control Cabinet Assembler: David Montez MD MCHC (RBC) [Mass/Vol] 32.3 g/dL Normal 28.4-34.8 [facility] Comment on above: Performed By: #### C DP, CMPX #### [address] [place], [place] [address] Control Cabinet Assembler: David Montez MD MCV (RBC) [Entitic vol] 100.8 fL Normal 82.6-102.9 [facility] Comment on above: Performed By: #### C DP, CMPX #### [address] [place], [facility]83 Control Cabinet Assembler: David Montez MD Monocytes (Bld) [#/Vol] 0.59 10*3/uL Normal 0.10-1.20 [facility] Comment on above: Performed By: #### C DP, CMPX #### [facility] [address] [place], [facility]83 Control Cabinet Assembler: David Montez MD Monocytes/100 WBC (Bld) 8 % Normal 3-12 [facility] Comment on above: Performed By: #### C DP, CMPX #### [facility] [address] [place], [facility]83 Control Cabinet Assembler: David Montez MD Neutrophil (Seg) 70 % High 36-65 [facility] Comment on above: Performed By: #### C DP, CMPX #### [facility] [address] [place], [place] [id number] Control Cabinet Assembler: David Montez MD NRBC Automated 0.0 per 100 WBC Normal 0.0 [facility] Comment on above: Performed By: #### C DP, CMPX #### [facility] [address] [place], [place] [id number] Control Cabinet Assembler: David Montez MD Platelet mean volume (Bld) [Entitic vol] 9.5 fL Normal 8.1-13.5 [facility] Comment on above: Performed By: #### C DP, CMPX #### [address] [place], [place] [id number] Control Cabinet Assembler: David Montez MD Platelets (Bld) [#/Vol] 195 10*3/uL Normal 138-453 [facility] Comment on above: Performed By: #### C DP, CMPX #### [address] [place], [place] [address] Control Cabinet Assembler: David Montez MD RBC (Bld) [#/Vol] 3.97 10*6/uL Low 4.21-5.77 [facility] Comment on above: Performed By: #### C DP, CMPX #### [address] [place], [place] [address] Control Cabinet Assembler: David Montez MD WBC (Bld) [#/Vol] 7.2 10*3/uL Normal 3.5-11.3 [facility] Comment on above: Performed By: #### C DP, CMPX #### [address] [place] [address] Control Cabinet Assembler: David Montez MD Discharge Instructionson Discharge Instructions [id number] 2#1.00CD:127 Normal [facility] Outside Recordson 11-12-2022 Outside Records [id number] 5#1.00CD:127 Normal [facility] Progress Note-Physicianon Progress Note-Physician Basic Information 67 yo M with pmhx intestinal dysmotility and admitted with the same. Subjective No acute events overnight. Patient denies any pain at this time. Nurse reports that she has been passing flatus and has bowel sounds. No vomiting overnight. Review of Systems All organ systems are reviewed. Pertinent positive and negative findings as mentioned in the HPI. Objective Vitals & Measurements T: 36.3 ?C(Oral) TMIN: 36.3 ?C(Oral) TMAX: 36.7 ?C(Axillary) HR: 68(Monitored) RR: 18 BP: 102/72 SpO2: 99% HT: 157 cm WT: 76.3 kg Intake & Output This visit (24 hour periods starting at 07:00 EDT) 11/09/22 * 11/08/22 11/07/22 Total Summary Intake mL -- 102.25 -- Output mL -- 500 -- Fluid Balance -- -397.75 -- Intake (3) Oral Intake mL -- 100 -- lorazepam mL -- 0.25 -- ondansetron mL -- 2 -- Total -- 102.25 -- Output (1) Urine Voided mL -- 500 -- Total -- 500 -- Counts (1) Stool Count -- 1 -- * This column has not completed the indicated time period. Physical Exam GENERAL: alert, pleasant. HEENT: normocephalic. oral mucosa moist. CARDIOVASCULAR: RRR. PULMONARY: CTAB. breathing comfortably on room air ABDOMINAL: abdomen is nontender., nondistended. EXTREMITIES: moves all extremities with equal strength NEUROLOGICAL: AxO x3 Lab Results WBC: 7.7 E9/L (11/09/22 06:20:00) RBC: 3.2 E12/L Low (11/09/22 06:20:00) HGB: 10.4 gm/dL Low (11/09/22 06:20:00) Hct: 30.8 % Low (11/09/22 06:20:00) MCV: 97.1 fL (11/09/22 06:20:00) MCH: 32.6 pg (11/09/22 06:20:00) MCHC: 33.6 gm/dL (11/09/22 06:20:00) RDW: 13.5 % (11/09/22 06:20:00) Platelet: 167 E9/L (11/09/22 06:20:00) MPV: 7.6 fL (11/09/22 06:20:00) Neutro Auto: 65.5 % (11/09/22 06:20:00) Lymph Auto: 25.3 % (11/09/22 06:20:00) [place] Auto: 6.5 % (11/09/22 06:20:00) Eos Auto: 2.3 % (11/09/22 06:20:00) Basophil Auto: 0.4 % (11/09/22 06:20:00) Neutro Absolute: 5 E9/L (11/09/22 06:20:00) Lymph Absolute: 1.9 E9/L (11/09/22 06:20:00) [place] Absolute: 0.5 E9/L (11/09/22 06:20:00) Eos Absolute: 0.2 E9/L (11/09/22 06:20:00) Basophil Absolute: 0 E9/L (11/09/22 06:20:00) Glucose Lvl: 79 mg/dL (11/09/22 06:20:00) BUN: 26 mg/dL High (11/09/22 06:20:00) Creatinine: 1.1 mg/dL (11/09/22 06:20:00) eGFR: 74 mL/min/1.73 m2 (11/09/22 06:20:00) BUN/Creat Ratio: 24 High (11/09/22 06:20:00) Sodium Lvl: 136 mmol/L (11/09/22 06:20:00) Potassium Lvl: 3.9 mmol/L (11/09/22 06:20:00) Chloride: 107 mmol/L (11/09/22 06:20:00) CO2: 24 mmol/L (11/09/22 06:20:00) AGAP: 9 mEq/L (11/09/22 06:20:00) Calcium Lvl: 8.6 mg/dL Low (11/09/22 06:20:00) Alk Phos: 115 Int._Unit/L High (11/08/22 09:35:00) ALT: 21 Int._Unit/L (11/08/22 09:35:00) AST: 22 Int._Unit/L (11/08/22 09:35:00) Total Protein: 8.4 gm/dL High (11/08/22 09:35:00) Albumin Lvl: 4.4 gm/dL (11/08/22 09:35:00) Globulin: 4 gm/dL (11/08/22 09:35:00) A/G Ratio: 1.1 (11/08/22 09:35:00) Bili Total: 0.7 mg/dL (11/08/22 09:35:00) Bili Direct: 0.2 mg/dL (11/08/22 09:35:00) Bili Indirect: 0.5 mg/dL (11/08/22 09:35:00) Lipase Lvl: 33 unit/L (11/08/22:35:00) Magnesium: 1.3 mg/dL (11/09/22 06:20:00) Assessment/Plan Acute diarrhea (R19.7: Diarrhea, unspecified) Acute vomiting (R11.10: Vomiting, unspecified) JOSÉ MIGUEL (acute kidney injury) (N17.9: Acute kidney failure, unspecified) Small bowel obstruction (K56.609: Unspecified intestinal obstruction, unspecified as to partial versus complete obstruction) Ordered: trazodone, 50 mg = 1 tab(s), Tab, Oral, Bedtime, Routine, Start date 11/08/22 21:00:00 EDT, 11/08/22 16:05:00 EDT - Advance to clear liquid diet as the patient has had no nausea or vomiting, no abdominal distention, no pain on exam. +flatus. Continue bowel regimen - As needed Tylenol - HLIV once taking adequate oral intake - Maintain O2 sats > 92%. Continue pulmonary toilet, encourage IS. - No indication for abx - No indication for transfusion - Continue SCDs and heparin for DVT ppx. - Maintain PIVs -No acute cardiac issues -Continue home PPI -Continue home seizure meds -If patient tolerates clear liquid diet will advance to regular diet. Anticipate discharge in the next 24 to 40 hours if patient advances as expected Laney Mitchell PA-C Trauma Surgery/Surgical Critical Care/Emergency General Surgery *For urgent issues arising after 4PM during the week or on weekends/holiday, please page the trauma/EGS attending qa automation developer. This patient's plan of care was discussed with Trauma/Emergency General Surgery attending, Dr. Rivera Problem List/Past Medical History Ongoing BPH with urinary obstruction Epilepsy Nocturia Post-void dribbling Historical No qualifying data Medications Inpatient calcium carbonate 500 mg Chew Tab, 500 mg= 1 tab(s), Chewed, BID docusate sodium 100 mg Cap, 100 mg= 1 cap(s), Oral, BID finasteride 5 mg Tab, 5 mg= 1 tab(s), Oral, Bedtime heparin 5000 un (more content not included)... Normal 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 Subjective No acute events overnight. Patient reports no pain. + flatus and BM. No nausea or vomiting. Review of Systems All organ systems are reviewed. Pertinent positive and negative findings as mentioned in the HPI. Objective Vitals & Measurements T: 36.4 ?C(Axillary) TMIN: 36.3 ?C(Axillary) TMAX: 36.4 ?C(Axillary) HR: 57(Monitored) RR: 16 BP: 122/63 SpO2: 97% WT: 77.4 kg Intake & Output This visit (24 hour periods starting at 07:00 EDT) 11/10/22 * 11/09/22 11/08/22 Total Summary Intake mL -- 600 102.25 Output mL 500 750 500 Fluid Balance -500 -150 -397.75 Intake (3) Oral Intake mL -- 600 100 lorazepam mL -- -- 0.25 ondansetron mL -- -- 2 Total -- 600 102.25 Output (1) Urine Voided mL 500 750 500 Total 500 750 500 Counts (2) Diaper Count 1 -- -- Stool Count 1 1 1 * This column has not completed the indicated time period. Physical Exam GENERAL: alert, pleasant. HEENT: normocephalic. oral mucosa moist. CARDIOVASCULAR: RRR. PULMONARY: CTAB. breathing comfortably on room air ABDOMINAL: abdomen is nontender, nondistended. EXTREMITIES: moves all extremities with equal strength NEUROLOGICAL: AxO x3 Lab Results WBC: 5.2 E9/L (11/10/22 06:23:00) RBC: 3.3 E12/L Low (11/10/22 06:23:00) HGB: 10.6 gm/dL Low (11/10/22 06:23:00) Hct: 32 % Low (11/10/22 06:23:00) MCV: 97.3 fL (11/10/22 06:23:00) MCH: 32.1 pg (11/10/22 06:23:00) MCHC: 33 gm/dL (11/10/22 06:23:00) RDW: 13.5 % (11/10/22 06:23:00) Platelet: 153 E9/L (11/10/22 06:23:00) MPV: 7.3 fL (11/10/22 06:23:00) Neutro Auto: 56.1 % (11/10/22 06:23:00) Lymph Auto: 32.5 % (11/10/22 06:23:00) [place] Auto: 6.7 % (11/10/22 06:23:00) Eos Auto: 4.1 % (11/10/22 06:23:00) Basophil Auto: 0.6 % (11/10/22 06:23:00) Neutro Absolute: 2.9 E9/L (11/10/22 06:23:00) Lymph Absolute: 1.7 E9/L (11/10/22 06:23:00) [place] Absolute: 0.3 E9/L (11/10/22 06:23:00) Eos Absolute: 0.2 E9/L (11/10/22 06:23:00) Basophil Absolute: 0 E9/L (11/10/22 06:23:00) Glucose Lvl: 87 mg/dL (11/10/22 06:23:00) BUN: 15 mg/dL (11/10/22 06:23:00) Creatinine: 1 mg/dL (11/10/22 06:23:00) eGFR: 83 mL/min/1.73 m2 (11/10/22 06:23:00) BUN/Creat Ratio: 15 (11/10/22 06:23:00) Sodium Lvl: 140 mmol/L (11/10/22 06:23:00) Potassium Lvl: 4 mmol/L (11/10/22:23:00) Chloride: 107 mmol/L (11/10/22 06:23:00) CO2: 28 mmol/L (11/10/22 06:23:00) AGAP: 9 mEq/L (11/10/22:23:00) Calcium Lvl: 8.6 mg/dL Low (11/10/22:23:00) Magnesium: 1.5 mg/dL (11/10/22 06:23:00) Assessment/Plan Acute diarrhea (R19.7: Diarrhea, unspecified) Acute vomiting (R11.10: Vomiting, unspecified) JOSÉ MIGUEL (acute kidney injury) (N17.9: Acute kidney failure, unspecified) Small bowel obstruction (K56.609: Unspecified intestinal obstruction, unspecified as to partial versus complete obstruction) Orders: Automated Diff eGFR Regular Diet - Patient had flatus and BM last night. Advance to regular diet. Continue bowel regimen. - As needed Tylenol - HLIV. - Maintain O2 sats > 92%. Continue pulmonary toilet, encourage IS. - No indication for abx - No indication for transfusion - Continue SCDs and heparin for DVT ppx. - Maintain PIVs -No acute cardiac issues -Continue home PPI -Continue home seizure meds - Advance to regular diet today. Anticipate discharge in the next 24 hours if patient advances as expected. Laney Mitchell PA-C Trauma Surgery/Surgical Critical Care/Emergency General Surgery *For urgent issues arising after 4PM during the week or on weekends/holiday, please page the trauma/EGS attending qa automation developer. This patient's plan of care was discussed with Trauma/Emergency General Surgery attending, Dr. Rivera Problem List/Past Medical History Ongoing BPH with urinary obstruction Epilepsy Nocturia Post-void dribbling Historical No qualifying data Medications Inpatient calcium carbonate 500 mg Chew Tab, 500 mg= 1 tab(s), Chewed, BID docusate sodium 100 mg Cap, 100 mg= 1 cap(s), Oral, BID finasteride 5 mg Tab, 5 mg= 1 tab(s), Oral, Bedtime heparin 5000 units/mL Inj, 5000 unit(s)= 1 mL, SubCutaneous, q8hrFT hydrOXYzine hydrochloride 25 mg Tab, 25 mg= 1 tab(s), Oral, q12hr, PRN lacosamide 50 mg oral tablet, 150 mg= 3 tab(s), Oral, BID Lactated Ringers IV [place] 1000 mL 1,000 mL, 1000 mL, IV lamotrigine 200 mg Tab, 400 mg= 2 tab(s), Oral, qAM lamotrigine 200 mg Tab, 600 mg= 3 tab(s), Oral, Bedtime levetiracetam 250 mg Tab, 750 mg= 3 tab(s), Oral, Daily levetiracetam 500 mg Tab, 2000 mg= 4 tab(s), Oral, Bedtime melatonin 3 mg Tab, 3 mg= 1 tab(s), Oral, Once a day (at bedtime), PRN Miralax 3350 17 gram packet, 17 gm= 1 EA, Oral, Daily oxybutynin 5 mg ER Tab, 10 mg= 2 tab(s), Oral, Daily Pantoprazole [address] Tab, 40 mg= 1 tab(s), Oral, Daily primidone 50 mg Tab, 250 mg= 5 tab(s), Or (more content not included)... Normal [facility] Comment on above: Result Comment: Elec tronically Signed By: Laney Mitchell PA-C\.br\Date and Time Signed: 11/10/22 16:41 EDT\.br\Electronically Co-Signed By: Melchor Rivera DO\.martin\Date and Time Co-Signed: 11/12/22 11:03 EDT Cover Stripper Consultation Noteon 11-12-2022 Cover Stripper Consultation Note [id number] 6#1.00CD:127 Normal [facility] Auto Diffon 11-11-2022 Basophils/100 WBC (Bld) 0.3 % Normal 0.0-2.0 [facility] Comment on above: Order Comment: Order Added by Discern Expert. Performed By: #### 2 [id number] #### [facility] [address] [place] [address] Basophils/Leukocytes Auto (Bld) [Pure # fraction] 0.0 E9/L Normal 0.0-0.2 [facility] Comment on above: Order Comment: Order Added by Discern Expert. Performed By: #### 2 [id number] #### [facility] [address] [place] [address] Eosinophils/100 WBC (Bld) 3.4 % Normal 0.0-8.0 [facility] Comment on above: Order Comment: Order Added by Discern Expert. Performed By: #### 2 [id number] #### [facility] [address] [place] [address] Eosinophils/Leukocytes Auto (Bld) [Pure # fraction] 0.2 E9/L Normal 0.0-0.5 [facility] Comment on above: Order Comment: Order Added by Discern Expert. Performed By: #### 2 [id number] #### [facility] [address] [place] [address] Lymphocytes/100 WBC (Bld) 33.5 % Normal 14.0-50.0 [facility] Comment on above: Order Comment: Order Added by Discern Expert. Performed By: #### 2 [id number] #### [facility] [address] [place] [address] Lymphocytes/Leukocytes Auto (Bld) [Pure # fraction] 1.6 E9/L Normal 1.0-4.0 [facility] Comment on above: Order Comment: Order Added by Discern Expert. Performed By: #### 2 [id number] #### [facility] [address] [place] [address] Monocytes/100 WBC (Bld) 8.3 % Normal 4.0-14.0 [facility] Comment on above: Order Comment: Order Added by Discern Expert. Performed By: #### 2 [id number] #### [facility] [address] [place] [address] Monocytes/Leukocytes Auto (Bld) [Pure # fraction] 0.4 E9/L Normal 0.2-1.0 [facility] Comment on above: Order Comment: Order Added by Discern Expert. Performed By: #### 2 [id number] #### [facility] [address] [place] [address] Neutrophils/100 WBC (Bld) 54.5 % Normal 36.0-75.0 [facility] Comment on above: Order Comment: Order Added by Discern Expert. Performed By: #### 2 [id number] #### [facility] [address] [place] [address] Neutrophils/Leukocytes Auto (Bld) [Pure # fraction] 2.6 E9/L Normal 2.0-7.5 [facility] Comment on above: Order Comment: Order Added by Discern Expert. Performed By: #### 2 [id number] #### [facility] [address] [place] [address] BMPon 11-11-2022 Anion gap [Moles/Vol] 12 mmol/L Normal 6-16 [facility] Comment on above: Performed By: #### 2 [id number] #### [facility] [address] [place] [address] Calcium [Mass/Vol] 8.5 mg/dL Low 8.9-11.1 [facility] Comment on above: Performed By: #### 2 [id number] #### [facility] [address] [place] [address] Chloride [Moles/Vol] 105 mmol/L Normal 101-[address] [facility] Comment on above: Performed By: #### 2 [id number] #### [facility] [address] [place] [address] CO2 [Moles/Vol] 28 mmol/L Normal 21-31 [facility] Comment on above: Performed By: #### 2 [id number] #### [facility] [address] [place] [address] Creatinine [Mass/Vol] 1.0 mg/dL Normal 0.5-1.3 [facility] Comment on above: Performed By: #### 2 [id number] #### [facility] [address] [place] [address] Glucose [Mass/Vol] 91 mg/dL Normal 55-199 [facility] Comment on above: Result Comment: If t his glucose result represents a fasting glucose, interpretation should refer to the following reference range: 55-99 mg/dL Performed By: #### 2 [id number] #### [facility] [address] [place] [address] Potassium [Moles/Vol] 3.5 mmol/L Normal 3.5-5.3 [facility] Comment on above: Performed By: #### 2 [id number] #### [facility] [address] [place] [address] Sodium [Moles/Vol] 141 mmol/L Normal 135-145 [facility] Comment on above: Performed By: #### 2 [id number] #### [facility] [address] [place] [address] Urea nitrogen [Mass/Vol] 12 mg/dL Normal 5-21 [facility] Comment on above: Performed By: #### 2 [id number] #### [facility] [address] [place] [address] Urea nitrogen/Creatinine [Mass ratio] 12 No Units Normal 10-20 [facility] Comment on above: Performed By: #### 2 [id number] #### [facility] [address] [place] [address] CBC w/ Auto Diffon 3 Erythrocyte distribution width (RBC) [Ratio] 13.2 % Normal 10.9-14.2 [facility] Comment on above: Performed By: #### 2 [id number] #### [facility] [address] [place] [address] Hematocrit (Bld) [Volume fraction] 31.9 % Low 37.7-49.0 [facility] Comment on above: Performed By: #### 2 [id number] #### [facility] [address] [place] [address] Hemoglobin (Bld) [Mass/Vol] 11.1 g/dL Low 13.5-17.5 [facility] Comment on above: Performed By: #### 2 [id number] #### [facility] [address] [place] [address] MCH (RBC) [Entitic mass] 33.2 pg Normal 27.0-34.0 [facility] Comment on above: Performed By: #### 2 [id number] #### [facility] [address] [place] [address] MCHC (RBC) [Mass/Vol] 34.8 g/dL Normal 31.4-36.0 [facility] Comment on above: Performed By: #### 2 [id number] #### [facility] [address] [place] [address] MCV (RBC) [Entitic vol] 95.5 fL Normal 80.0-100.0 [facility] Comment on above: Performed By: #### 2 [id number] #### [facility] [address] [place] [address] Platelet mean volume (Bld) [Entitic vol] 6.9 fL Normal 6.4-10.8 [facility] Comment on above: Performed By: #### 2 [id number] #### [facility] [address] [place] [address] Platelets (Bld) [#/Vol] 147.0 E9/L Low 150.0-500.0 [facility] Comment on above: Performed By: #### 2 [id number] #### [facility] [address] [place] [address] RBC (Bld) [#/Vol] 3.3 E12/L Low 4.3-5.9 [facility] Comment on above: Performed By: #### 2 [id number] #### [facility] [address] [place] [address] WBC corrected for nucl RBC Auto (Bld) [#/Vol] 4.9 E9/L Normal 4.0-11.0 [facility] Comment on above: Performed By: #### 2 [id number] #### [facility] [address] [place] [address] CHEMISTRYOrdered By: SYSTEM SYSTEM on 11-11-2022 Anion gap [Moles/Vol] 12 mmol/L Normal 6 - 16 mEq/L [facility] Calcium [Mass/Vol] 8.5 mg/dL Low 8.9 - 11. 1 mg/dL [facility] Chloride [Moles/Vol] 105 mmol/L Normal 101 - 1 11 mmol/L [facility] CO2 [Moles/Vol] 28 mmol/L Normal 21 - 31 mmol/L [facility] Creatinine [Mass/Vol] 1.0 mg/dL Normal 0.5 - 1.3 mg/dL [facility] GFR/1.73 sq M.predicted among non-blacks MDRD (S/P/Bld) [Vol rate/Area] 83 mL/min/1.73 m2 Normal >=59mL/min/ 1.73 m2 [facility] [place] S Glucose [Mass/Vol] 91 mg/dL Normal 55 - 199 mg/dL [facility] Magnesium [Mass/Vol] 1.4 mg/dL Normal 1.3 - 2 .4 mg/dL [facility] Potassium [Moles/Vol] 3.5 mmol/L Normal 3.5 - 5.3 mmol/L [facility] Sodium [Moles/Vol] 141 mmol/L Normal 135 - 145 mmol/L [facility] Urea nitrogen [Mass/Vol] 12 mg/dL Normal 5 - 21 mg/dL [facility] Urea nitrogen/Creatinine [Mass ratio] 12 mg/mg Normal 10 - 20 [facility] HEMATOLOGYOrdered By: SYSTEM SYSTEM on 09-09-2023 Basophils/100 WBC (Bld) 0.3 % Normal 0.0 - 2.0 % [facility]Auto[facility] Basophils/Leukocytes Auto (Bld) [Pure # fraction] 0.0 E9/L Normal 0.0 - 0.2 E9/L [facility] Eosinophils/100 WBC (Bld) 3.4 % Normal 0.0 - 8.0 % [facility] Eosinophils/Leukocytes Auto (Bld) [Pure # fraction] 0.2 E9/L Normal 0.0 - 0.5 E9/L [facility] Lymphocytes/100 WBC (Bld) 33.5 % Normal 14.0 - 50.0 % [facility] Lymphocytes/Leukocytes Auto (Bld) [Pure # fraction] 1.6 E9/L Normal 1.0 - 4.0 E9/L [facility] Monocytes/100 WBC (Bld) 8.3 % Normal 4.0 - 14.0 % [facility] Monocytes/Leukocytes Auto (Bld) [Pure # fraction] 0.4 E9/L Normal 0.2 - 1.0 E9/L [facility] Neutrophils/100 WBC (Bld) 54.5 % Normal 36.0 - 75.0 % [facility] Neutrophils/Leukocytes Auto (Bld) [Pure # fraction] 2.6 E9/L Normal 2.0 - 7.5 E9/L [facility] HEMATOLOGYOrdered By: Mavis Ramírez on 11-11-2022 Erythrocyte distribution width (RBC) [Ratio] 13.2 % Normal 10.9 - 14.2 % [facility] Hematocrit (Bld) [Volume fraction] 31.9 % Low 37.7 - 49.0 % [facility] Hemoglobin (Bld) [Mass/Vol] 11.1 g/dL Low 13.5 - 17.5 gm/dL [facility] MCH (RBC) [Entitic mass] 33.2 pg Normal 27.0 - 34.0 pg [facility] MCHC (RBC) [Mass/Vol] 34.8 g/dL Normal 31.4 - 36.0 gm/dL [facility] MCV (RBC) [Entitic vol] 95.5 fL Normal 80.0 - 100.0 fL [facility] Platelet mean volume (Bld) [Entitic vol] 6.9 fL Normal 6.4 - 10.8 fL [facility] Platelets (Bld) [#/Vol] 147.0 E9/L Low 150.0 - 500.0 E9/L [facility] RBC (Bld) [#/Vol] 3.3 E12/L Low 4.3 - 5.9 E12/L [facility] WBC corrected for nucl RBC Auto (Bld) [#/Vol] 4.9 E9/L Normal 4.0 - 11.0 E9/L [facility] Inpatient Patient Summaryon 11-11-2022 Inpatient Patient Summary AMOL TAYLOR :1955 Visit Date:11/08/2022 Inpatient Discharge Instructions Your Care Team Admitting Physician - Melchor Rivera DO Reason for Your Visit Nausea and Vomiting Your Diagnosis Acute diarrhea Acute vomiting JOSÉ MIGUEL (acute kidney injury) Diarrhea Seizure Small bowel obstruction Vomiting Tests Performed Automated Diff BMP Capillary Glucose POC CBC w/ Auto Diff eGFR Hepatic Function Panel Lipase Level Magnesium Level UA With Cult Reflex -- Results Pending -- CT Abdomen/Pelvis w/ Contrast Please visit your patient portal for your results or contact your primary care physician. This Is Your Medications List acetaminophen calcium carbonate (calcium carbonate 500 mg Chew Tab) carbamide peroxide otic (Ear Wax 6.5% otic solution) cholecalciferol (Vitamin D 1000 intl units (25 mcg) Tab) diazepam finasteride (finasteride 5 mg Tab) hydrOXYzine (hydrOXYzine hydrochloride 25 mg Tab) hydrocortisone topical (hydrocortisone Top 2.5% Crm) lacosamide (lacosamide 150 mg oral tablet) lamotrigine (lamotrigine 200 mg Tab) lamotrigine (lamotrigine 200 mg Tab) latanoprost ophthalmic (latanoprost 0.005% ophthalmic emulsion) levetiracetam (levETIRAcetam 750 mg oral tablet, dispersible) levetiracetam (levetiracetam 1000 mg oral tablet) lorazepam (LORazepam 0.5 mg Tab) meclizine (meclizine 25 mg Tab) melatonin (melatonin 3 mg Tab) ondansetron (ondansetron 4 mg Tab) oxybutynin (oxybutynin 10 mg ER Tab) pantoprazole (Pantoprazole [address] Tab) polyethylene glycol 3350 (MiraLax) primidone (primidone 250 mg Tab) primidone (primidone 250 mg Tab) senna (senna 8.6 mg Tab) tamsulosin (tamsulosin 0.4 mg Cap) trazodone (traZODONE 50 mg Tab) Procedure History Exploratory laparotomy (06/14/2021), Hydrocelectomy (10/21/2015), Left shoulder (1990), Colonoscopy, Small bowel resection, Vagus nerve stimulator. Discharge Vitals Temperature (Axillary) 36.7 ?C Heart Rate (Monitored) 77 Respiratory Rate 18 Blood Pressure 115/88 Weight 80.0 kg What to do next Instructions From Your Doctor Event Name Event Result Pharmacy Information Other: [facility] [place] Previously Scheduled Follow-Up Appointments Sunday 10:30 AM EDT With: Where: [facility]uma Clinic Sunday 10:15 AM EST With: JAX MOELLER, Yasmani Cabrera Where: [facility] Interdisciplinary Note - Poli e Manageron 11-11-2022 Interdisciplinary Note - Adult And Pediatric Neurologist CRM to room to discuss DC planning. Patient is awake, alert but with some confusion. Patient is alert to person. Patient is from [facility]. Patient will return there at [place]. He will need transport. We are calling [facility] this Am at [phone] to see when they can transport. Patient is here with possible Bowel Obstruction. Patient has Intestinal Dysmobility. Patient was advanced to clears on 11/09 and to regular 11/10. Patient rounded with Trauma Team. Patient will DC back [facility] today. Patient was provided CRM contact, white board updated. CRM following [facility] Comment on above: Result Comment: Elec tronically Signed By: Reva Gonzáles\.martin\Date and Time Signed: 11/11/22 10:28 EDT Magnesiumon 11-11-2022 Magnesium [Mass/Vol] 1.4 mg/dL Normal 1.3-2.[address] [facility] Comment on above: Performed By: #### 2 [id number], 3788795, 2996766, [id number], 7371151, 4630026 #### [facility] [address] [place] [address] eGFRon 11-11-2022 GFR/1.73 sq M.predicted among non-blacks MDRD (S/P/Bld) [Vol rate/Area] 83 mL/min/1.73 m2 Normal >=59 [facility] Comment on above: Order Comment: Order added by Discern Expert. Result Comment: Gear Nicker maria c kidney disease could be indicated at eGFR's of less than 60 mL/min/1.73m2. Kidney failure is indicated at less than 15 mL/min/1.73m2. Performed By: #### 2 [id number] #### [facility] [address] [place] [address] Auto Diffon 11-10-2022 Basophils/100 WBC (Bld) 0.6 % Normal 0.0-2.0 [facility] Comment on above: Order Comment: Order Added by Discern Expert. Performed By: #### 2 344560, 2199999, 8660397, 70743854, 0442549, 0408981 #### [facility] [address] [place] [address] Basophils/Leukocytes Auto (Bld) [Pure # fraction] 0.0 E9/L Normal 0.0-0.2 [facility] Comment on above: Order Comment: Order Added by Discern Expert. Performed By: #### 2 574079, 2256108, 3610966, 73700002, 7918541, 4833676 #### [facility] [address] [place] [address] Eosinophils/100 WBC (Bld) 4.1 % Normal 0.0-8.0 [facility] Comment on above: Order Comment: Order Added by Discern Expert. Performed By: #### 2 325334, 2221003, 4908331, 53697047, 8747695, 8341147 #### [facility] [address] [place] [address] Eosinophils/Leukocytes Auto (Bld) [Pure # fraction] 0.2 E9/L Normal 0.0-0.5 [facility] Comment on above: Order Comment: Order Added by Discern Expert. Performed By: #### 2 162765, 4062528, 3650062, 18683015, 6515534, 9777298 #### [facility] [address] [place] [address] Lymphocytes/100 WBC (Bld) 32.5 % Normal 14.0-50.0 [facility] Comment on above: Order Comment: Order Added by Discern Expert. Performed By: #### 2 311250, 9924406, 0913273, 17939323, 3219953, 0111229 #### [facility] [address] [place] [address] Lymphocytes/Leukocytes Auto (Bld) [Pure # fraction] 1.7 E9/L Normal 1.0-4.0 [facility] Comment on above: Order Comment: Order Added by Juancarlos Expert. Performed By: #### 2 016587, 3727925, 8630937, 62011827, 2814519, 9559867 #### [facility] [address] [place] [address] Monocytes/100 WBC (Bld) 6.7 % Normal 4.0-14.0 [facility] Comment on above: Order Comment: Order Added by Juancarlos Expert. Performed By: #### 2 184578, 8606779, 3168583, 80308693, 9331845, 8932033 #### [facility] [address] [place] [address] Monocytes/Leukocytes Auto (Bld) [Pure # fraction] 0.3 E9/L Normal 0.2-1.0 [facility] Comment on above: Order Comment: Order Added by Juancarlos Expert. Performed By: #### 2 703682, 2151308, 3497955, 68165509, 5746178, 7860153 #### [facility] [address] [place] [address] Neutrophils/100 WBC (Bld) 56.1 % Normal 36.0-75.0 [facility] Comment on above: Order Comment: Order Added by Juancarlos Expert. Performed By: #### 2 125872, 8909080, 8348222, 95975545, 5613963, 8040822 #### [facility] [address] [place] [address] Neutrophils/Leukocytes Auto (Bld) [Pure # fraction] 2.9 E9/L Normal 2.0-7.5 [facility] Comment on above: Order Comment: Order Added by Discern Expert. Performed By: #### 2 950154, 8494667, 8684121, 92615430, 4818729, 7233986 #### [facility] [address] [place] [address] BMPon 11-10-2022 Anion gap [Moles/Vol] 9 mmol/L Normal 6-16 [facility] Comment on above: Performed By: #### 2 724622, 1389791, 9269472, 70918399, 6294515, 3319772 #### [facility] [address] [place] [address] Calcium [Mass/Vol] 8.6 mg/dL Low 8.9-11.1 [facility] Comment on above: Performed By: #### 2 718167, 7022797, 0818096, 54051200, 2092234, 3290889 #### [facility] [address] [place] [address] Chloride [Moles/Vol] 107 mmol/L Normal 101-[address] [facility] Comment on above: Performed By: #### 2 727395, 8912841, 1835915, 11475006, 1218652, 5178599 #### [facility] [address] [place] [address] CO2 [Moles/Vol] 28 mmol/L Normal 21-31 [facility] Comment on above: Performed By: #### 2 875508, 6171140, 6211759, 50915585, 7445743, 1520709 #### [facility] [address] [place] [address] Creatinine [Mass/Vol] 1.0 mg/dL Normal 0.5-1.3 [facility] Comment on above: Performed By: #### 2 891077, 7858928, 8336080, 93629894, 7525083, 4701930 #### [facility] [address] [place] [address] Glucose [Mass/Vol] 87 mg/dL Normal 55-199 [facility] Comment on above: Result Comment: If t his glucose result represents a fasting glucose, interpretation should refer to the following reference range: 55-99 mg/dL Performed By: #### 2 119482, 2885368, 8367815, 61924473, 2049098, 9903640 #### [facility] [address] [place] [address] Potassium [Moles/Vol] 4.0 mmol/L Normal 3.5-5.3 [facility] Comment on above: Performed By: #### 2 586056, 6251585, 9907264, 56467054, 2032330, 4381028 #### [facility] [address] [place] [address] Sodium [Moles/Vol] 140 mmol/L Normal 135-145 [facility] Comment on above: Performed By: #### 2 129239, 8370464, 9738317, 94798045, 5740121, 9836320 #### [facility] [address] [place] [address] Urea nitrogen [Mass/Vol] 15 mg/dL Normal 5-21 [facility] Comment on above: Performed By: #### 2 287113, 3481023, 8639145, 93876806, 2036202, 3251038 #### [facility] [address] [place] [address] Urea nitrogen/Creatinine [Mass ratio] 15 No Units Normal 10-20 [facility] Comment on above: Performed By: #### 2 895883, 8971678, 9815185, 00581179, 0649925, 9939876 #### [facility] [address] [place] [address] CBC w/ Auto Diffon 3 Erythrocyte distribution width (RBC) [Ratio] 13.5 % Normal 10.9-14.2 [facility] Comment on above: Performed By: #### 2 412058, 0471667, 9935283, 17161375, 3590442, 2197735 #### [facility] [address] [place] [address] Hematocrit (Bld) [Volume fraction] 32.0 % Low 37.7-49.0 [facility] Comment on above: Performed By: #### 2 647366, 9884995, 2830423, 80287188, 4092676, 5790553 #### [facility] [address] [place] [address] Hemoglobin (Bld) [Mass/Vol] 10.6 g/dL Low 13.5-17.5 [facility] Comment on above: Performed By: #### 2 438370, 7702994, 7791055, 68721667, 4972357, 5510872 #### [facility] [address] [place] [address] MCH (RBC) [Entitic mass] 32.1 pg Normal 27.0-34.0 [facility] Comment on above: Performed By: #### 2 789892, 3585039, 2144634, 09973301, 9007663, 6148613 #### [facility] [address] [place] [address] MCHC (RBC) [Mass/Vol] 33.0 g/dL Normal 31.4-36.0 [facility] Comment on above: Performed By: #### 2 801296, 3407331, 9120056, 37778074, 7519391, 9826805 #### [facility] [address] [place] [address] MCV (RBC) [Entitic vol] 97.3 fL Normal 80.0-100.0 [facility] Comment on above: Performed By: #### 2 412507, 5748381, 0976338, 32352088, 6369789, 9610699 #### [facility] [address] [place] [address] Platelet mean volume (Bld) [Entitic vol] 7.3 fL Normal 6.4-10.8 [facility] Comment on above: Performed By: #### 2 726942, 7121293, 7435586, 52966716, 0956269, 9425013 #### [facility] [address] [place] [address] Platelets (Bld) [#/Vol] 153.0 E9/L Normal 150.0-500.0 [facility] Comment on above: Performed By: #### 2 431120, 7454750, 0748334, 98767912, 6277241, 3098994 #### [facility] [address] [place] [address] RBC (Bld) [#/Vol] 3.3 E12/L Low 4.3-5.9 [facility] Comment on above: Performed By: #### 2 099094, 8501769, 5767000, 42866031, 6377567, 9778026 #### [facility] [address] [place] [address] WBC corrected for nucl RBC Auto (Bld) [#/Vol] 5.2 E9/L Normal 4.0-11.0 [facility] Comment on above: Performed By: #### 2 358853, 3282543, 3367769, 54859156, 2521028, 8810745 #### [facility] [address] [place] [address] CHEMISTRYOrdered By: SYSTEM SYSTEM on 11-10-2022 Anion gap [Moles/Vol] 9 mmol/L Normal 6 - 16 mEq/L [facility] Calcium [Mass/Vol] 8.6 mg/dL Low 8.9 - 11. 1 mg/dL [facility] Chloride [Moles/Vol] 107 mmol/L Normal 101 - 1 11 mmol/L [facility] CO2 [Moles/Vol] 28 mmol/L Normal 21 - 31 mmol/L [facility] Creatinine [Mass/Vol] 1.0 mg/dL Normal 0.5 - 1.3 mg/dL [facility] GFR/1.73 sq M.predicted among non-blacks MDRD (S/P/Bld) [Vol rate/Area] 83 mL/min/1.73 m2 Normal >=59mL/min/ 1.73 m2 [facility] Chem S Glucose [Mass/Vol] 87 mg/dL Normal 55 - 199 mg/dL [facility] Magnesium [Mass/Vol] 1.5 mg/dL Normal 1.3 - 2 .4 mg/dL [facility] Potassium [Moles/Vol] 4.0 mmol/L Normal 3.5 - 5.3 mmol/L [facility] Sodium [Moles/Vol] 140 mmol/L Normal 135 - 145 mmol/L [facility] Urea nitrogen [Mass/Vol] 15 mg/dL Normal 5 - 21 mg/dL [facility] Urea nitrogen/Creatinine [Mass ratio] 15 mg/mg Normal 10 - 20 [facility] HEMATOLOGYOrdered By: SYSTEM SYSTEM on 11-10-2022 Basophils/100 WBC (Bld) 0.6 % Normal 0.0 - 2.0 % [facility] Basophils/Leukocytes Auto (Bld) [Pure # fraction] 0.0 E9/L Normal 0.0 - 0.2 E9/L [facility] Eosinophils/100 WBC (Bld) 4.1 % Normal 0.0 - 8.0 % [facility] Eosinophils/Leukocytes Auto (Bld) [Pure # fraction] 0.2 E9/L Normal 0.0 - 0.5 E9/L [facility] Lymphocytes/100 WBC (Bld) 32.5 % Normal 14.0 - 50.0 % [facility] Lymphocytes/Leukocytes Auto (Bld) [Pure # fraction] 1.7 E9/L Normal 1.0 - 4.0 E9/L [facility] Monocytes/100 WBC (Bld) 6.7 % Normal 4.0 - 14.0 % [facility] Monocytes/Leukocytes Auto (Bld) [Pure # fraction] 0.3 E9/L Normal 0.2 - 1.0 E9/L [facility] Neutrophils/100 WBC (Bld) 56.1 % Normal 36.0 - 75.0 % [facility] Neutrophils/Leukocytes Auto (Bld) [Pure # fraction] 2.9 E9/L Normal 2.0 - 7.5 E9/L [facility] HEMATOLOGYOrdered By: Mavis Ramírez on 11-10-2022 Erythrocyte distribution width (RBC) [Ratio] 13.5 % Normal 10.9 - 14.2 % [facility] Hematocrit (Bld) [Volume fraction] 32.0 % Low 37.7 - 49.0 % [facility] Hemoglobin (Bld) [Mass/Vol] 10.6 g/dL Low 13.5 - 17.5 gm/dL [facility] MCH (RBC) [Entitic mass] 32.1 pg Normal 27.0 - 34.0 pg [facility] MCHC (RBC) [Mass/Vol] 33.0 g/dL Normal 31.4 - 36.0 gm/dL [facility] MCV (RBC) [Entitic vol] 97.3 fL Normal 80.0 - 100.0 fL [facility] Platelet mean volume (Bld) [Entitic vol] 7.3 fL Normal 6.4 - 10.8 fL [facility] Platelets (Bld) [#/Vol] 153.0 E9/L Normal 150.0 - 500.0 E9/L [facility] RBC (Bld) [#/Vol] 3.3 E12/L Low 4.3 - 5.9 E12/L [facility] WBC corrected for nucl RBC Auto (Bld) [#/Vol] 5.2 E9/L Normal 4.0 - 11.0 E9/L [facility] Interdisciplinary Note - Poli e Manageron 11-10-2022 Interdisciplinary Note - Adult And Pediatric Neurologist CRM to room to discuss DC planning. Patient is awake, alert but with some confusion. Patient is alert to person. Patient is from [facility]. Patient will return there at [place]. He will need transport. Patient is here with possible Bowel Obstruction. Patient has Intestinal Dysmobility. Patient was advanced to clears on 11/09. Will continue to advance diet and hopefully DC in 1-2 more days. Patient will round with Trauma Team. Patient was assisted with bed change, he urinated and needed cleaned. Patient was provided CRM contact, white board updated. CRM following Anticipated DC 1-2 days. Per Trauma possible DC later if tolerates advanced diet Called Patient sister to provide update. Patient will need [place] to transport. We will call to let them know of possible DC today Call to Adm Korina [phone]. They will not have transportation to [facility] pt today since their drivers are off at 3pm. If dc is tomorrow, CRM is to call [phone] and speak to Berna Vaughan or Leil[place]. Prefers call in AM since transport isnt available all day. Normal [facility] Comment on above: Result Comment: Elec tronically Signed By: Mavis Eng\.br\Date and Time Signed: 11/10/22 14:32 EDT Magnesiumon 11-10-2022 Magnesium [Mass/Vol] 1.5 mg/dL Normal 1.3-2.[address] [facility] Comment on above: Performed By: #### 2 665257, 9494467, 8474282, 51488621, 4038735, 1976583 #### [facility] [address] [place] [address] eGFRon 11-10-2022 GFR/1.73 sq M.predicted among non-blacks MDRD (S/P/Bld) [Vol rate/Area] 83 mL/min/1.73 m2 Normal >=59 [facility] Comment on above: Order Comment: Order added by Discern Expert. Result Comment: Gear Nicker maria c kidney disease could be indicated at eGFR's of less than 60 mL/min/1.73m2. Kidney failure is indicated at less than 15 mL/min/1.73m2. Performed By: #### 2 639942, 8269306, 4814973, 04821357, 2567473, 1662884 #### [facility] [address] [place] [address] Auto Diffon 11-09-2022 Basophils/100 WBC (Bld) 0.4 % Normal 0.0-2.0 [facility] Comment on above: Order Comment: Order Added by Discern Expert. Performed By: #### 2 [id number] #### [facility] [address] [place] [address] Basophils/Leukocytes Auto (Bld) [Pure # fraction] 0.0 E9/L Normal 0.0-0.2 [facility] Comment on above: Order Comment: Order Added by Discern Expert. Performed By: #### 2 [id number] #### [facility] [address] [place] [address] Eosinophils/100 WBC (Bld) 2.3 % Normal 0.0-8.0 [facility] Comment on above: Order Comment: Order Added by Discern Expert. Performed By: #### 2 [id number] #### [facility] [address] [place] [address] Eosinophils/Leukocytes Auto (Bld) [Pure # fraction] 0.2 E9/L Normal 0.0-0.5 [facility] Comment on above: Order Comment: Order Added by Discern Expert. Performed By: #### 2 [id number] #### [facility] [address] [place] [address] Lymphocytes/100 WBC (Bld) 25.3 % Normal 14.0-50.0 [facility] Comment on above: Order Comment: Order Added by Discern Expert. Performed By: #### 2 [id number] #### [facility] [address] [place] [address] Lymphocytes/Leukocytes Auto (Bld) [Pure # fraction] 1.9 E9/L Normal 1.0-4.0 [facility] Comment on above: Order Comment: Order Added by Discern Expert. Performed By: #### 2 [id number] #### [facility] [address] [place] [address] Monocytes/100 WBC (Bld) 6.5 % Normal 4.0-14.0 [facility] Comment on above: Order Comment: Order Added by Discern Expert. Performed By: #### 2 [id number] #### [facility] [address] [place] [address] Monocytes/Leukocytes Auto (Bld) [Pure # fraction] 0.5 E9/L Normal 0.2-1.0 [facility] Comment on above: Order Comment: Order Added by Discern Expert. Performed By: #### 2 [id number] #### [facility] [address] [place] [address] Neutrophils/100 WBC (Bld) 65.5 % Normal 36.0-75.0 [facility] Comment on above: Order Comment: Order Added by Discern Expert. Performed By: #### 2 [id number] #### [facility] [address] [place] [address] Neutrophils/Leukocytes Auto (Bld) [Pure # fraction] 5.0 E9/L Normal 2.0-7.5 [facility] Comment on above: Order Comment: Order Added by Discern Expert. Performed By: #### 2 [id number] #### [facility] [address] [place] [address] BMPon 11-09-2022 Anion gap [Moles/Vol] 9 mmol/L Normal 6-16 [facility] Comment on above: Performed By: #### 2 [id number] #### [facility] [address] [place] [address] Calcium [Mass/Vol] 8.6 mg/dL Low 8.9-11.1 [facility] Comment on above: Performed By: #### 2 [id number] #### [facility] [address] [place] [address] Chloride [Moles/Vol] 107 mmol/L Normal 101-[address] [facility] Comment on above: Performed By: #### 2 [id number] #### [facility] [address] [place] [address] CO2 [Moles/Vol] 24 mmol/L Normal 21-31 [facility] Comment on above: Performed By: #### 2 [id number] #### [facility] [address] [place] [address] Creatinine [Mass/Vol] 1.1 mg/dL Normal 0.5-1.3 [facility] Comment on above: Performed By: #### 2 [id number] #### [facility] [address] [place] [address] Glucose [Mass/Vol] 79 mg/dL Normal 55-199 [facility] Comment on above: Result Comment: If t his glucose result represents a fasting glucose, interpretation should refer to the following reference range: 55-99 mg/dL Performed By: #### 2 [id number] #### [facility] [address] [place] [address] Potassium [Moles/Vol] 3.9 mmol/L Normal 3.5-5.3 [facility] Comment on above: Performed By: #### 2 [id number] #### [facility] [address] [place] [address] Sodium [Moles/Vol] 136 mmol/L Normal 135-145 [facility] Comment on above: Performed By: #### 2 [id number] #### [facility] [address] [place] [address] Urea nitrogen [Mass/Vol] 26 mg/dL High 5-21 [facility] Comment on above: Performed By: #### 2 [id number] #### [facility] [address] [place] [address] Urea nitrogen/Creatinine [Mass ratio] 24 No Units High 10-20 [facility] Comment on above: Performed By: #### 2 [id number] #### [facility] [address] [place] [address] CBC w/ Auto Diffon 3 Erythrocyte distribution width (RBC) [Ratio] 13.5 % Normal 10.9-14.2 [facility] Comment on above: Performed By: #### 2 [id number] #### [facility] [address] [place] [address] Hematocrit (Bld) [Volume fraction] 30.8 % Low 37.7-49.0 [facility] Comment on above: Performed By: #### 2 [id number] #### [facility] [address] [place] [address] Hemoglobin (Bld) [Mass/Vol] 10.4 g/dL Low 13.5-17.5 [facility] Comment on above: Performed By: #### 2 [id number] #### [facility] [address] [place] [address] MCH (RBC) [Entitic mass] 32.6 pg Normal 27.0-34.0 [facility] Comment on above: Performed By: #### 2 [id number] #### [facility] [address] [place] [address] MCHC (RBC) [Mass/Vol] 33.6 g/dL Normal 31.4-36.0 [facility] Comment on above: Performed By: #### 2 [id number] #### [facility] [address] [place] [address] MCV (RBC) [Entitic vol] 97.1 fL Normal 80.0-100.0 [facility] Comment on above: Performed By: #### 2 [id number] #### [facility] [address] [place] [address] Platelet mean volume (Bld) [Entitic vol] 7.6 fL Normal 6.4-10.8 [facility] Comment on above: Performed By: #### 2 [id number] #### [facility] [address] [place] [address] Platelets (Bld) [#/Vol] 167.0 E9/L Normal 150.0-500.0 [facility] Comment on above: Performed By: #### 2 [id number] #### [facility] [address] [place] [address] RBC (Bld) [#/Vol] 3.2 E12/L Low 4.3-5.9 [facility] Comment on above: Performed By: #### 2 [id number] #### [facility] [address] [place] [address] WBC corrected for nucl RBC Auto (Bld) [#/Vol] 7.7 E9/L Normal 4.0-11.0 [facility] Comment on above: Performed By: #### 2 [id number] #### [facility] [address] [place] [address] CHEMISTRYOrdered By: Lab ROP User on 11-09-2022 Glucose [Mass/Vol] 73 mg/dL Normal 55 - 99 mg/dL [facility] [place] Comment on above: Result Comment: Kelsey jordon Meter POC Device SN [id number] Invalid Interpretation Code [facility] Subsection POC User ID [id number] Invalid Interpretation Code [facility] Sub[place] POC Username VESNA SMITH Invalid Interpretation Code [facility] Subsection CHEMISTRYOrdered By: SYSTEM SYSTEM on 11-09-2022 Anion gap [Moles/Vol] 9 mmol/L Normal 6 - 16 mEq/L [facility] Remisol Calcium [Mass/Vol] 8.6 mg/dL Low 8.9 - 11. 1 mg/dL [facility] Chloride [Moles/Vol] 107 mmol/L Normal 101 - 1 11 mmol/L [facility] CO2 [Moles/Vol] 24 mmol/L Normal 21 - 31 mmol/L [facility] Creatinine [Mass/Vol] 1.1 mg/dL Normal 0.5 - 1.3 mg/dL [facility] Remisol GFR/1.73 sq M.predicted among non-blacks MDRD (S/P/Bld) [Vol rate/Area] 74 mL/min/1.73 m2 Normal >=59mL/min/ 1.73 m2 [facility] Chem S Glucose [Mass/Vol] 79 mg/dL Normal 55 - 199 mg/dL [facility]isol Magnesium [Mass/Vol] 1.3 mg/dL Normal 1.3 - 2 .4 mg/dL [facility] Potassium [Moles/Vol] 3.9 mmol/L Normal 3.5 - 5.3 mmol/L [facility]isol Sodium [Moles/Vol] 136 mmol/L Normal 135 - 145 mmol/L [facility]isol Urea nitrogen [Mass/Vol] 26 mg/dL High 5 - 21 mg/dL [facility]isol Urea nitrogen/Creatinine [Mass ratio] 24 mg/mg High 10 - 20 [facility]isol Capillary Glucose POCon Glucose [Mass/Vol] 73 mg/dL Normal 55-99 [facility] Comment on above: Result Comment: Kelsey jordon Meter Performed By: #### 2 [id number], 9184106, 7589616, 21103194, 0993008, 5339151 #### [facility] Laboratory [address] [place] [address] HEMATOLOGYOrdered By: SYSTEM SYSTEM on 11-09-2022 Basophils/100 WBC (Bld) 0.4 % Normal 0.0 - 2.0 % [facility]eAuto[facility] Basophils/Leukocytes Auto (Bld) [Pure # fraction] 0.0 E9/L Normal 0.0 - 0.2 E9/L [facility] Eosinophils/100 WBC (Bld) 2.3 % Normal 0.0 - 8.0 % [facility] Eosinophils/Leukocytes Auto (Bld) [Pure # fraction] 0.2 E9/L Normal 0.0 - 0.5 E9/L [facility] Lymphocytes/100 WBC (Bld) 25.3 % Normal 14.0 - 50.0 % [facility] Lymphocytes/Leukocytes Auto (Bld) [Pure # fraction] 1.9 E9/L Normal 1.0 - 4.0 E9/L [facility] Monocytes/100 WBC (Bld) 6.5 % Normal 4.0 - 14.0 % [facility] Monocytes/Leukocytes Auto (Bld) [Pure # fraction] 0.5 E9/L Normal 0.2 - 1.0 E9/L [facility] Neutrophils/100 WBC (Bld) 65.5 % Normal 36.0 - 75.0 % [facility] Neutrophils/Leukocytes Auto (Bld) [Pure # fraction] 5.0 E9/L Normal 2.0 - 7.5 E9/L [facility] HEMATOLOGYOrdered By: Dari See on 11-09-2022 Erythrocyte distribution width (RBC) [Ratio] 13.5 % Normal 10.9 - 14.2 % [facility] Hematocrit (Bld) [Volume fraction] 30.8 % Low 37.7 - 49.0 % [facility] Hemoglobin (Bld) [Mass/Vol] 10.4 g/dL Low 13.5 - 17.5 gm/dL [facility] MCH (RBC) [Entitic mass] 32.6 pg Normal 27.0 - 34.0 pg [facility] MCHC (RBC) [Mass/Vol] 33.6 g/dL Normal 31.4 - 36.0 gm/dL [facility] MCV (RBC) [Entitic vol] 97.1 fL Normal 80.0 - 100.0 fL [facility] Platelet mean volume (Bld) [Entitic vol] 7.6 fL Normal 6.4 - 10.8 fL [facility] Platelets (Bld) [#/Vol] 167.0 E9/L Normal 150.0 - 500.0 E9/L [facility] RBC (Bld) [#/Vol] 3.2 E12/L Low 4.3 - 5.9 E12/L [facility] WBC corrected for nucl RBC Auto (Bld) [#/Vol] 7.7 E9/L Normal 4.0 - 11.0 E9/L [facility] Interdisciplinary Note - Poli e Manageron 11-09-2022 Interdisciplinary Note - Adult And Pediatric Neurologist CRM entered the room to discuss dc planning. Pt is sleeping. Pt is from [facility] and will return. Pt's sister Susan is main contact. Pt is [place] bound. On bowel rest, no sx yet. CRM to follow. Ant dc TBD. Normal [facility] Comment on above: Result Comment: Elec tronically Signed By: Mavis Eng\.br\Date and Time Signed: 11/09/22 09:40 EDT Magnesiumon 11-09-2022 Magnesium [Mass/Vol] 1.3 mg/dL Normal 1.3-2.4 [facility] Comment on above: Performed By: #### 2 [id number] #### [facility] [address] [place] [address] eGFRon 11-09-2022 GFR/1.73 sq M.predicted among non-blacks MDRD (S/P/Bld) [Vol rate/Area] 74 mL/min/1.73 m2 Normal >=59 [facility] Comment on above: Order Comment: Order added by Discern Expert. Result Comment: Gear Nicker maria c kidney disease could be indicated at eGFR's of less than 60 mL/min/1.73m2. Kidney failure is indicated at less than 15 mL/min/1.73m2. Performed By: #### 2 [id number] #### [facility] [address] [place] [address] Auto Diffon 11-08-2022 Basophils/100 WBC (Bld) 0.1 % Normal 0.0-2.0 [facility] Comment on above: Order Comment: Order Added by Discern Expert. Performed By: #### 2 226646, 1038294, 2167446, 47691600, 4630456, 8268009 #### [facility] [address] [place] [address] Basophils/Leukocytes Auto (Bld) [Pure # fraction] 0.0 E9/L Normal 0.0-0.2 [facility] Comment on above: Order Comment: Order Added by Discern Expert. Performed By: #### 2 960691, 6877587, 3605941, 53330083, 7866466, 7871163 #### [facility] [address] [place] [address] Eosinophils/100 WBC (Bld) 0.1 % Normal 0.0-8.0 [facility] Comment on above: Order Comment: Order Added by Discern Expert. Performed By: #### 2 333571, 1175123, 5016275, 12014306, 2090224, 2668699 #### [facility] [address] [place] [address] Eosinophils/Leukocytes Auto (Bld) [Pure # fraction] 0.0 E9/L Normal 0.0-0.5 [facility] Comment on above: Order Comment: Order Added by Discern Expert. Performed By: #### 2 895727, 5105938, 6301435, 83505476, 1844685, 1053963 #### [facility] [address] [place] [address] Lymphocytes/100 WBC (Bld) 9.8 % Low 14.0-50.0 [facility] Comment on above: Order Comment: Order Added by Discern Expert. Performed By: #### 2 011383, 7201857, 1682733, 22497318, 8414403, 5191690 #### [facility] [address] [place] [address] Lymphocytes/Leukocytes Auto (Bld) [Pure # fraction] 1.3 E9/L Normal 1.0-4.0 [facility] Comment on above: Order Comment: Order Added by Discern Expert. Performed By: #### 2 783677, 9961921, 4996028, 59061668, 5207549, 5128901 #### [facility] [address] [place] [address] Monocytes/100 WBC (Bld) 6.2 % Normal 4.0-14.0 [facility] Comment on above: Order Comment: Order Added by Discern Expert. Performed By: #### 2 007626, 8039815, 0034997, 79026770, 7866365, 4163714 #### [facility] [address] [place] [address] Monocytes/Leukocytes Auto (Bld) [Pure # fraction] 0.8 E9/L Normal 0.2-1.0 [facility] Comment on above: Order Comment: Order Added by Discern Expert. Performed By: #### 2 805852, 3649136, 0499456, 26687566, 0902175, 7468372 #### [facility] [address] [place] [address] Neutrophils/100 WBC (Bld) 83.8 % High 36.0-75.0 [facility] Comment on above: Order Comment: Order Added by Discern Expert. Performed By: #### 2 653939, 2139314, 5468519, 26692018, 2989781, 1075670 #### [facility] [address] [place] [address] Neutrophils/Leukocytes Auto (Bld) [Pure # fraction] 11.1 E9/L High 2.0-7.5 [facility] Comment on above: Order Comment: Order Added by Discern Expert. Performed By: #### 2 711991, 2948856, 4022115, 40142087, 4673740, 1657256 #### [facility] [address] [place] [address] BMPon 11-08-2022 Creatinine [Mass/Vol] 1.6 mg/dL High 0.5-1.3 [facility] Comment on above: Performed By: #### 2 093179, 9741271, 8796995, 79497973, 7844438, 0044349 #### [facility] [address] [place] [address] Urea nitrogen [Mass/Vol] 37 mg/dL High 5-21 [facility] Comment on above: Performed By: #### 2 301277, 9612454, 3243280, 03175069, 1137475, 5575911 #### [facility] [address] [place] [address] Urea nitrogen/Creatinine [Mass ratio] 23 No Units High 10-20 [facility] Comment on above: Performed By: #### 2 615449, 8181212, 4128930, 89460246, 1069218, 1864960 #### [facility] Laboratory [address] [place] [address] Anion gap [Moles/Vol] 15 mmol/L Normal 6-16 [facility] Comment on above: Performed By: #### 2 065540, 3994781, 8473199, 69676616, 5547900, 3991087 #### [facility] [address] [place] [address] Calcium [Mass/Vol] 9.8 mg/dL Normal 8.9-11.1 [facility] Comment on above: Performed By: #### 2 308605, 0399585, 8595205, 28956753, 1875013, 2484893 #### [facility] [address] [place] [address] Chloride [Moles/Vol] 99 mmol/L Low 101-111 [facility] Comment on above: Performed By: #### 2 904277, 3459151, 0959050, 17218839, 1521168, 2475300 #### [facility] [address] [place] [address] CO2 [Moles/Vol] 27 mmol/L Normal 21-31 [facility] Comment on above: Performed By: #### 2 682235, 8602198, 6793999, 85442975, 2876117, 6444444 #### [facility] [address] [place] [address] Glucose [Mass/Vol] 121 mg/dL Normal 55-199 [facility] Comment on above: Result Comment: If t his glucose result represents a fasting glucose, interpretation should refer to the following reference range: 55-99 mg/dL Performed By: #### 2 675362, 0690430, 1149659, 38917737, 2632068, 5756661 #### [facility] [address] [place] [address] Potassium [Moles/Vol] 3.4 mmol/L Low 3.5-5.3 [facility] Comment on above: Performed By: #### 2 168576, 0980017, 3139466, 20814798, 6081904, 5255577 #### [facility] [address] [place] [address] Sodium [Moles/Vol] 138 mmol/L Normal 135-145 [facility] Comment on above: Performed By: #### 2 639217, 9140881, 5742970, 33413349, 4785791, 2220486 #### [facility] [address] [place] [address] CBC w/ Auto Diffon 3 Erythrocyte distribution width (RBC) [Ratio] 13.5 % Normal 10.9-14.2 [facility] Comment on above: Performed By: #### 2 277934, 1998020, 5469932, 77572951, 2983673, 1895692 #### [facility] [address] [place] [address] Hematocrit (Bld) [Volume fraction] 42.9 % Normal 37.7-49.0 [facility] Comment on above: Performed By: #### 2 055002, 0670933, 1932638, 17491260, 8897732, 8854952 #### [facility] [address] [place] [address] Hemoglobin (Bld) [Mass/Vol] 14.2 g/dL Normal 13.5-17.5 [facility] Comment on above: Performed By: #### 2 653669, 1823199, 4388507, 90551446, 5505779, 1531526 #### [facility] [address] [place] [address] 19653 MCH (RBC) [Entitic mass] 31.9 pg Normal 27.0-34.0 [facility] Comment on above: Performed By: #### 2 327934, 9744861, 5022228, 14487295, 8206300, 5104567 #### [facility] [address] [place] [address]78 MCHC (RBC) [Mass/Vol] 33.2 g/dL Normal 31.4-36.0 [facility] Comment on above: Performed By: #### 2 174846, 4142804, 5906456, 71885986, 5771609, 0388747 #### [facility] [address] [place] [address] MCV (RBC) [Entitic vol] 96.2 fL Normal 80.0-100.0 [facility] Comment on above: Performed By: #### 2 108628, 3607539, 8869085, 42712483, 0553698, 5204979 #### [facility] [address] [place] [address] Platelet mean volume (Bld) [Entitic vol] 8.4 fL Normal 6.4-10.8 [facility] Comment on above: Performed By: #### 2 016407, 6196559, 1026440, 41272260, 0881468, 2058944 #### [facility] [address] [place] [address]28[address] Platelets (Bld) [#/Vol] 193.0 E9/L Normal 150.0-500.0 [facility] Comment on above: Result Comment: Occa sional platelet clumps. Platelet count estimate appears normal on slide. Performed By: #### 2 539925, 2011816, 0821392, 16617673, 2737112, 7784530 #### [facility] [address] [place] [address] RBC (Bld) [#/Vol] 4.5 E12/L Normal 4.3-5.9 [facility] Comment on above: Performed By: #### 2 786605, 1070817, 7357769, 48651954, 1551722, 4508959 #### [facility] [address] [place] [address] WBC corrected for nucl RBC Auto (Bld) [#/Vol] 13.3 E9/L High 4.0-11.0 [facility] Comment on above: Performed By: #### 2 466175, 0146762, 0313450, 90997432, 3068275, 0232970 #### [facility] [address] [place] [address] CHEMISTRYOrdered By: SYSTEM SYSTEM on 11-08-2022 Albumin [Mass/Vol] 4.4 g/dL Normal 3.3 - 5.0 gm/dL [facility] Rem[facility] Albumin/Globulin [Mass ratio] 1.1 {ratio} Normal 1.1 - 2.2 [facility] Rem[facility] ALP [Catalytic activity/Vol] 115 [iU]/d High 21 - 98 Int._Unit/L [facility] Rem[facility] ALT No additional P-5'-P [Catalytic activity/Vol] 21 [iU]/d Normal 6 - 46 Int._Unit/L [facility] Rem[facility] AST [Catalytic activity/Vol] 22 [iU]/d Normal 5 - 43 Int._Unit/L [facility] Bilirubin [Mass/Vol] 0.7 mg/dL Normal 0.0 - 1 .1 mg/dL [facility] Bilirubin.direct [Mass/Vol] 0.2 mg/dL Normal 0.1 - 0.4 mg/dL [facility] Bilirubin.indirect [Mass or moles/Vol] 0.5 mg/dL Normal 0.1 - 0.9 mg/dL [facility] Globulin (S) [Mass/Vol] 4.0 g/dL Normal 1.4 - 4.0 gm/dL [facility] Lipase [Catalytic activity/Vol] 33 U/L Normal 13 - 58 unit/L [facility] Protein [Mass/Vol] 8.4 g/dL High 6.0 - 7.8 gm/dL [facility] CT Abdomen/Pelvis w/ Contras ton 11-08-2022 CT Abdomen/Pelvis w/ Contrast Exam Date/Time: 11/08/2022 10:55 EDT Reason for Exam: abd pain;Other (please specify) Report IMPRESSION: PROBABLE LONG-STANDING SMALL BOWEL OBSTRUCTION AT THE LEFT LOWER QUADRANT OF ABDOMEN. 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 NO AIR IN THE PORTAL VEIN OR MESENTERIC VESSELS. CLINICAL HISTORY: abd pain COMPARISON: 06/27/2021. FINDINGS: CT scan of abdomen and pelvis was done with intravenous injection of contrast. There is a minimal left basilar discoid atelectasis. The liver, gallbladder and spleen are unremarkable. There is no air in the portal vein. Pancreas and arthralgias are free from mass. 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 Right kidney is unremarkable. There is distended the stomach with gastric emphysema in the fundus. There are multiple dilated small bowel loops measuring up to 6.1 cm in diameter with acute transition in the left lower quadrant of abdomen. There is questionable pneumatosis intestinalis of multiple dilated small bowel loops. Urinary bladder is unremarkable. There is no ascites. There is no intraperitoneal free air. There are moderate atherosclerotic calcifications of the abdominal aorta. There is no air in the mesenteric vessels. There is degenerative change of thoracolumbar spines. There is degenerative disc disease at L2-3 and L5-S1. All CT scans at this facility use dose modulation, iterative reconstruction, and/or weight based dosing when appropriate to reduce radiation dose to as low as reasonably achievable. Ordering Provider: Hair Landa FINAL REPORT Dictated: 11/08/2022 11:23 am Jerod Wilkinson M.D. Signed (Electronic Signature): 11/08/2022 11:23 am Signed by: Jerod Wilkinson M.D. Transcribed by: CAROLA Technologist: ARIANNE Technical Comments GFR (mL/min/1/73m2) 47 Contrast: Isovue 300 Contrast amount in ml's: 100 Normal [facility] Consent for Treatmenton 0 Consent for Treatment [id number] Normal [facility] ED Clinical Summaryon 2022 ED Clinical Summary [place] [id number] ED Clinical Summary Person Information Name: AMOL TAYLOR E[facility] Age: 67 Years : 1955 Sex: Male Language: Khmer PCP: CARSON MATAMOROS MD Marital Status: Single Visit Id: Visit Reason: Diarrhea; Seizure; Vomiting; POSS BOWEL OBSTRUCTION Speciality: Acuity: 3 Enc Type: Observation Med Service: Emergency Arrival: 11/08/2022 08:49:58 Discharge: LOS: 000 04:43 Checkin: 11/08/2022 08:49:58 Checkout: 11/08/2022 13:32:03 Dispo Type: Admitted as IP to this [facility] EVENTS: Event Name Event Status Request Date/Time Start Date/Time Complete Date/Time Arrive Complete 11/08/2022 08:49:58 11/08/2022 08:49:58 11/08/2022 08:49:58 Document Home Meds Request 11/08/2022 08:49:58 Triage Complete 11/08/2022 08:49:58 11/08/2022 09:05:18 11/08/2022 09:05:18 Registration Complete 11/08/2022 08:56:14 11/08/2022 08:56:14 11/08/2022 08:56:14 Reg Complete Request 11/08/2022 08:56:14 Bed Assign Complete 11/08/2022 08:57:09 11/08/2022 08:57:09 11/08/2022 08:57:09 Dr Exam Complete 11/08/2022 08:57:09 11/08/2022 08:59:22 11/08/2022 08:59:22 RN Exam Complete 11/08/2022 08:57:09 11/08/2022 09:11:35 11/08/2022 09:11:35 Registration Complete 11/08/2022 08:59:22 11/08/2022 12:38:28 11/08/2022 12:38:28 EKG Complete 11/08/2022 09:13:13 11/08/2022 09:20:49 Pending Labs Request 11/08/2022 09:13:13 Lab Request 11/08/2022 09:13:13 Urine Collect Request 11/08/2022 09:13:13 Patient Care Request 11/08/2022 09:13:13 CT Complete 11/08/2022 09:18:09 11/08/2022 10:18:32 11/08/2022 10:55:45 Meds Admin Complete 11/08/2022 09:18:09 11/08/2022 10:05:26 Meds Admin Request 11/08/2022 09:18:51 Meds Admin Complete 11/08/2022 09:22:29 11/08/2022 10:17:43 Pending Labs Complete 11/08/2022 09:38:55 11/08/2022 09:38:55 11/08/2022 09:59:55 Lab Complete 11/08/2022 09:38:55 11/08/2022 09:38:55 11/08/2022 09:59:55 Pending Labs Complete 11/08/2022 09:58:22 11/08/2022 09:58:22 11/08/2022 09:58:29 Lab Complete 11/08/2022 09:58:22 11/08/2022 09:58:22 11/08/2022 09:58:29 Bed Request Request 11/08/2022 12:36:50 Reg Bed Request Request 11/08/2022 12:36:50 Admit Request 11/08/2022 12:36:50 Patient Care Request 11/08/2022 12:38:28 Patient Care Request 11/08/2022 12:38:28 Patient Care Request 11/08/2022 12:38:28 Patient Care Request 11/08/2022 12:38:28 ADDRESS: [address] [place] [id number] PHYS DOC NOTES: MEDICAL INFORMATION: Prescriptions Given: Medications to Continue with No Changes Other Medications acetaminophen 650 Milligram By Mouth every 4 hours as needed as needed for pain. calcium carbonate (calcium carbonate 500 mg Chew Tab) 1 Tablets Chewed 2 times a day. carbamide peroxide otic (Ear Wax 6.5% otic solution) 4 Drops Otic at bedtime. INSTILL 4 DROPS INTO BILATERAL EARS AT BEDTIME ONCE A MONTH THEN APPLY COTTON SWABS TO EARS, THEN IRRIGATE WITH ROOM TEMP H20 THEN NEXT MORNING.. cholecalciferol (Vitamin D 1000 intl units (25 mcg) Tab) 1 Tablets By Mouth every day. diazepam 12.5-20mg kit By rectum Once. PRN for seizure activity >15 minutes. finasteride (finasteride 5 mg Tab) 1 Tablets By Mouth at bedtime. hydrOXYzine (hydrOXYzine hydrochloride 25 mg Tab) 1 Tablets By Mouth every 12 hours as needed as needed for itching. lacosamide (lacosamide 150 mg oral tablet) 1 Tablets By Mouth 2 times a day. lamotrigine (lamotrigine 200 mg Tab) 3 Tablets By Mouth at bedtime. lamotrigine (lamotrigine 200 mg Tab) 2 Tablets By Mouth once a day (in the morning). latanoprost ophthalmic (latanoprost 0.005% ophthalmic emulsion) 1 Drops Both eyes at bedtime. levetiracetam (levetiracetam 1000 mg oral tablet) 2 Tablets By Mouth at bedtime. levetiracetam (levETIRAcetam 750 mg oral tablet, dispersible) 2 Tablets By Mouth every day. lorazepam (LORazepam 0.5 mg Tab) 1 Tablets By Mouth every 8 hours as needed Other (see comment). meclizine (meclizine 25 mg Tab) 1 Tablets By Mouth every 8 hours as needed Dizziness. FOR DIZZINESS. melatonin (melatonin 3 mg Tab) 1 Tablets By Mouth once a day (at bedtime) as needed for insomnia. ondansetron (ondansetron 4 mg Tab) 1 Tablets By Mouth every 6 hours as needed Nausea/Vomiting. oxybutynin (oxybutynin 10 mg ER Tab) 1 Tablets By Mouth every day. polyethylene glycol 3350 (MiraLax) 17 Gram By Mouth every day. primidone (primidone 250 mg Tab) 1 Tablets By Mouth once a day (in the morning). primidone (primidone 250 mg Tab) 1.5 Tablets By Mouth once a day (at bedtime). senna (senna 8.6 mg Tab) 1 Tablets By Mouth 2 times a day. tamsulosin (tamsulosin 0.4 mg Cap) 1 Capsules By Mouth 2 times a day. trazodone (traZODONE 50 mg Tab) 1 Tablets By Mouth at bedtime. PATIENT EDUCATION INFORMATION: Instructions: Follow up: DIAGNOSIS: JOSÉ MIGUEL (acute kidney injury); Acute diarrhea; Acute vomiting Normal [facility] ED Note-Physicianon 11-09-19 ED Note-Physician Basic Information Time Seen: Hair Landa DO 11/08/2022 08:59 Chief Complaint pt to ER from [place] in [facility] with c/o diarrhea, vomiting, and seizure activity that started yesterday. pt nurse states he has had diminished bowel sounds. pt has hx of seizures, but more pronounced and frequent lasting a minute when ill. History of Present Illness 67-year-old male to the emergency department from his alf for diarrhea and vomiting. He has a history of developmental delay and seizure disorder. His seizures increase in frequency and duration when he is becoming ill which has had a new that he was sick today. He reports several episodes of vomiting and diarrhea overnight. He is otherwise been at his baseline health. No falls or injuries. No fever, sweats, chills. No chest pain or shortness of breath. Review of Systems A 10 point review of systems is negative except as noted above. Medical and Surgical History: Reviewed and noted Social history: Lives at home Tobacco: Denies Physical Exam Vitals & Measurements T: 36.5 ?C(Oral) HR: 99(Monitored) RR: 16 BP: 106/76 SpO2: 95% HT: 157 cm WT: 76.2 kg BMI: 30.91 VITALS: I have reviewed the triage vital signs. GENERAL: Pleasant adult male seated in bed in no distress NEURO: Alert. Moves all extremities. Face is symmetric and expressive. EYES: PERRL. No scleral icterus or conjunctival injection. No discharge. HENT: Normocephalic, atraumatic. Hearing is grossly intact. Nares grossly patent and without discharge. Mucous membranes moist. NECK: No JVD. Patient moves neck without restriction. CARDIO: Rhythm regular. Normal rate. No murmur, rub, or gallop. Pulses equal bilaterally in the upper and lower extremity. No lower extremity edema. PULM: Lungs clear to auscultation in all matta. No wheezes, rales, or rhonchi. No conversational dyspnea. No splinting, stridor, or accessory muscle use. GI/: Abdomen is soft and non-tender. Normoactive bowel sounds. EXTREMITIES: Symmetric muscle bulk. No joint swelling. No clubbing, cyanosis, or deformity. SKIN: Warm and dry. Normal turgor. No rash or lesions appreciated. PSYCH: Mood, affect, and interaction is appropriate to the setting. Medical Decision Making MDM Data External documents reviewed: Not applicable My EKG interpretation: Not applicable My CT interpretation: Not applicable My X-ray interpretation: Not applicable My Ultrasound interpretation: Not applicable Decision rules/scores evaluated: Not applicable Discussed with: Not applicable Treatment and Disposition ED Course: 67-year-old male with history of developmental delay and seizure disorder to the emergency department for nausea, diarrhea, seizures. Vital stable, the patient is afebrile. Neurologic exam is at his stated baseline. They are concerned he may have a bowel obstruction based on their alf nurse not hearing bowel sounds in the left lower quadrant. CT scan will be obtained. Basic labs. Fluids. Zofran and Ativan for symptoms. Lab work reviewed and noted. Does have an JOSÉ MIGUEL today based on his previous labs CT scan results were reviewed with surgery. They will admit the patient to their service for observation. Shared decision making: As above Code status: Not addressed during this visit Assessment/Plan Acute diarrhea (R19.7: Diarrhea, unspecified) Acute vomiting (R11.10: Vomiting, unspecified) JOSÉ MIGUEL (acute kidney injury) (N17.9: Acute kidney failure, unspecified) Orders: lorazepam, 0.5 mg = 0.25 mL, Injection, IV Push, Once, Stop date 11/08/22 10:00:00 EDT, Routine, Start date 11/08/22 10:00:00 EDT, 11/08/22 9:22:00 EDT ondansetron, 4 mg = 2 mL, Injection, IV Push, Once, Stop date 11/08/22 9:18:00 EDT, STAT, Start date 11/08/22 9:18:00 EDT, 11/08/22 9:18:00 EDT Sodium Chloride 0.9% intravenous solution 1,000 mL, 1,000 mL, IV, 999 mL/hr, STAT, Start date 11/08/22 9:18:00 EDT, 1 hour(s), Total volume (mL): 1,000, 76.2 kg, 1.82, m2 Automated Diff Basic Metabolic Panel CBC w/ Auto Diff CT Abdomen/Pelvis w/ Contrast ECG 12 Lead Adult ED Cardiac Monitoring eGFR Hepatic Function Panel Lipase Level Saline Lock Insert UA With Cult Reflex Medications Administered Given Sodium Chloride 0.9% IV Socorro 1000 mL 1,000 mL, 1000 mL, IV Ativan 2 mg/mL Injection, 0.5 mg, IV Push Zofran 4 mg/2 mL Injection, 4 mg, IV Push Disposition Plan Patient Discharge Condition Stable Discharge Disposition Obs Discharge Prescription List Prescriptions No active prescription medications Follow-up No qualifying data available Problem List/Past Medical History Ongoing BPH with urinary obstruction Epilepsy Nocturia Post-void dribbling Historical No qualifying data Procedure/Surgical History Exploratory laparotomy (06/14/2021), Hydrocelectomy (10/21/2015), Left shoulder (1990), Colonoscopy, Small bowel resection, Vagus nerve stimulator. Medications Inpatient Sodium Chloride 0.9% IV Socorro 1000 mL 1,000 mL, 1000 (more content not included)... Normal [facility] Comment on above: Result Comment: Elec tronically Signed By: Hair Landa DO\.br\Date and Time Signed: 11/08/22 12:44 EDT ED Patient Education Noteon 11-08-2022 ED Patient Education Note Normal [facility] ED Patient Summaryon 023 ED Patient Summary [address] [address] Patient Discharge Instructions Person Information Name: AMOL TAYLOR Age: 67 Years Arrival Date: 11/08/2022 08:49:58 Discharge Diagnosis: JOSÉ MIGUEL (acute kidney injury); Acute diarrhea; Acute vomiting Primary Care Physician: CARSON MATAMOROS MD Provider Information Primary Provider: Hair Landa DO Advanced Maintenance Painter Apprentice:None The exam and treatment you received in the Emergency Department were for an urgent problem and are not intended as complete care. It is important that you follow up with a doctor, nurse practitioner, or physician?s assistant gm of content & delivery for ongoing care. If your symptoms become worse or you do not improve as expected and you are unable to reach your usual health care provider, you should return to the Emergency Department. We are available 24 hours a day. AMOL TAYLOR has been given the following list of patient education materials, prescriptions and follow-up instructions: Follow-up Instructions: In the event that this physician does not participate in your insurance network, please consult with your insurance company to find a nearby participating provider. Patient Education Materials: A MESSAGE TO ALL PATIENTS REGARDING OPIOIDS PRESCRIPTION OPIOIDS: WHAT YOU NEED TO KNOW Prescription opioids can be used to help relieve xdoywyzw-rh-uppvte pain and are often prescribed following a surgery or injury, or for certain health conditions. These medications can be an important part of the treatment but also come with serious risks. It is important to work with your healthcare provider to make sure you are getting the safest, most effective care. WHAT ARE THE RISKS AND SIDE EFFECTS OF OPIOID USE? Prescription opioids carry serious risks of addiction and overdose, especially with prolonged use. An opioid overdose, often marked by slowed breathing, can cause sudden . The use of prescription opioids can have a number of side effects as well, even when taken as directed: ? Tolerance?meaning you might need to take more of the medication for the same pain relief ? Physical dependence?meaning you have symptoms of withdrawal when a medication is stopped ? Increased sensitivity to pain ? Constipation ? Nausea, vomiting, and dry mouth ? Sleepiness and dizziness ? Confusion ? Depression ? Low levels of testosterone that can result in lower sex drive, energy, and strength ? Itching and sweating RISKS ARE GREATER WITH: ? History of drug misuse, substance use disorder, or overdose ? Mental health conditions (such as depression or anxiety) ? Sleep apnea ? Older age (65 years and older) ? Avoid alcohol while taking prescription opioids. Also, unless specifically advised by your health care provider, medications to avoid include: ? Benzodiazepines (such as Xanax or Valium) ? Muscle relaxants (such as Soma or Flexeril) ? Hypnotics (such as Ambien or Lunesta) ? Other prescription opioids KNOW YOUR OPTIONS Talk to your health care provider about ways to manage your pain that don?t involve prescription opioids. Some of these options may actually work better and have fewer risks and side effects. Options may include: ? Pain relievers such as acetaminophen, ibuprofen, and naproxen ? Some medication that are also used for depression or seizures ? Physical therapy and exercise ? Cognitive behavioral therapy, a psychological, goal-directed approach, in which patients learn how to modify physical, behavioral, and emotional triggers of pain and stress. IF YOU ARE PRESCRIBED OPIOIDS FOR PAIN: ? Never take opioids in greater amounts or more often than prescribed. ? Follow up with your primary health care provider. o Work together to create a plan on how to manage your pain. o Talk about ways to help manage your pain that don?t involve prescription opioids. o Talk about any and all concerns and side effects. ? Help prevent misuse and abuse o Never sell or share prescription opioids. o Never use another person?s prescription opioids. ? Store prescription opioids in a secure place and out of reach of others (this may include visitors, children, friends, and family). ? Safely dispose of unused prescription opioids: Find your community drug take-back program or your pharmacy mail-back program, or flush them down the toilet, following guidance from the Food and Drug Administration (www.fda.gov/Drugs/R esourcesForYou). ? Visit www.cdc.gov/drugover dose to learn about the risks of opioids abuse and overdose. ? If you believe you may be struggling with addiction, tell your health director day care center and ask for guidance or call [facility] National Helpline at 0-016-467-ROZI. v Source: US Department of Health and Human Services/Center for Disease Control & Prevention [facility] Medications Given: Medica (more content not included)... Normal [facility] Hep Func Panelon 11-08-2022 Albumin [Mass/Vol] 4.4 g/dL Normal 3.3-5.0 [facility] Comment on above: Performed By: #### 2 [id number], [id number], 4476831, [id number], 3771507, 0959851 #### [facility] Laboratory [address] [place] [address] Albumin/Globulin (S) [Mass conc ratio] 1.1 Normal 1.1-2.2 [facility] Comment on above: Performed By: #### 2 613474, 1888226, 7699417, [id number], 0976403, 8365255 #### [facility] Laboratory [address] [place] [address] ALP [Catalytic activity/Vol] 115 Int._Unit/L High 21-98 [facility] Comment on above: Performed By: #### 2 794008, 2699078, 1131979, 38130690, 1458250, 9132904 #### [facility] Laboratory [address] [place] [address] ALT No additional P-5'-P [Catalytic activity/Vol] 21 Int._Unit/L Normal 6-46 [facility] Comment on above: Performed By: #### 2 607127, 0639688, 4391206, 78910017, 2773456, 5924684 #### [facility] Laboratory [address] [place] [id number] AST [Catalytic activity/Vol] 22 Int._Unit/L Normal 5-43 [facility] Comment on above: Performed By: #### 2 224267, 6939878, 8561598, 60811935, 4264534, 9230301 #### [facility] Laboratory [address] [place] [address] Bilirubin [Mass/Vol] 0.7 mg/dL Normal 0.0-1.[address] [facility] Comment on above: Performed By: #### 2 358202, 5318231, 4434885, 95614814, 3192667, 9737158 #### [facility] Laboratory [address] [place] [address] Bilirubin.direct [Mass/Vol] 0.2 mg/dL Normal 0.1-0.4 [facility] Comment on above: Performed By: #### 2 896669, 7283899, 4123925, 87030403, 6383038, 7033262 #### [facility] Laboratory [address] [place] [address] Bilirubin.indirect [Mass or moles/Vol] 0.5 mg/dL Normal 0.1-0.9 [facility] Comment on above: Performed By: #### 2 772992, 6632456, 8592319, 98350529, 9179977, 4505943 #### [facility] Laboratory [address] [place] [address] Globulin (S) [Mass/Vol] 4.0 g/dL Normal 1.4-4.0 [facility] Comment on above: Performed By: #### 2 669972, 2591500, 5195144, 68086133, 4956689, 9759079 #### [facility] Laboratory [address] [place] [address] Protein [Mass/Vol] 8.4 g/dL High 6.0-7.8 [facility] Comment on above: Performed By: #### 2 819091, 7057814, 7063316, 45299607, 2388643, 4115762 #### [facility] Laboratory [address] [place] [address] Lipase Levelon 11-08-2022 Lipase [Catalytic activity/Vol] 33 U/L Normal 13-58 [facility] Comment on above: Performed By: #### 2 315119, 1548063, 0894273, 80322687, 4366109, 0409135 #### [facility] Laboratory [address] [place] [address] eGFRon 11-08-2022 GFR/1.73 sq M.predicted among non-blacks MDRD (S/P/Bld) [Vol rate/Area] 47 mL/min/1.73 m2 Low >=59 [facility] Comment on above: Order Comment: Order added by Discern Expert. Result Comment: Gear Nicker maria c kidney disease could be indicated at eGFR's of less than 60 mL/min/1.73m2. Kidney failure is indicated at less than 15 mL/min/1.73m2. Performed By: #### 2 913813, 7867033, 6427457, 95647022, 7869785, 1586105 #### [facility] Laboratory [address] [place] [address] CBC auto differentialon Basophils (Bld) [#/Vol] [facility] Basophils/100 WBC (Bld) 0 % 0 - 2 % [facility] Eosinophils (Bld) [#/Vol] 0.21 10*3/uL [facility] Eosinophils/100 WBC (Bld) 4 % 1 - 4 % [facility] Erythrocyte distribution width (RBC) [Ratio] 12.8 % 11.8 - 14.4 % [facility] Hematocrit (Bld) [Volume fraction] 28.9 % Low 40.7 - 50.3 % [facility] Hemoglobin (Bld) [Mass/Vol] 9.5 g/dL Low 13.0 - 17.0 g/dL [facility] Immature granulocytes (Bld) [#/Vol] [facility] Immature granulocytes/100 WBC (Bld) 0 % 0 [facility] Interpretation and review of laboratory results Abnormal [facility] Lymphocytes/100 WBC (Bld) 29 % 24 - 43 % [facility] Lymphocytes/100 WBC (Bld) 1.74 % [facility] MCH (RBC) [Entitic mass] 32.8 pg 25.2 - 33.5 pg [facility] MCHC (RBC) [Mass/Vol] 32.9 g/dL 28.4 - 34.8 g/dL [facility] MCV (RBC) [Entitic vol] 99.7 fL 82.6 - 102.9 fL [facility] Monocytes/100 WBC (Bld) 9 % 3 - 12 % [facility] Monocytes/100 WBC (Bld) 0.55 % [facility] Neutrophils/100 WBC (Bld) 58 % 36 - 65 % [facility] Nucleated RBC/100 WBC (Bld) [Ratio] 0.0 % 0.0 per 100 WBC [facility] Platelet mean volume (Bld) [Entitic vol] 9.1 fL 8.1 - 13.5 fL [facility] Platelets (Bld) [#/Vol] 145 10*3/uL [facility] RBC (Bld) [#/Vol] 2.90 10*6/uL Low 4.21 - 5.7 7 m/uL [facility] Segmented neutrophils/100 WBC (Bld) 3.48 % [facility] WBC other (Bld) [#/Vol] 6.0 [facility] CBC with Diffon 09-07-2022 Abs. Basophil <0.03 Normal 0.00-0.20 [facility] Comment on above: Performed By: #### YULIYA COUGHLIN, CDP #### [address] [place] [address] Control Cabinet Assembler: David Montez MD Abs.Imm.Granulocyte <0.03 Normal 0.00-0.30 [facility] Comment on above: Performed By: #### YULIYA COUGHLIN, CDP #### [address] [place], [facility] Control Cabinet Assembler: David Montez MD Abs.Neutrophil (Seg) 3.48 k/uL Normal 1.50-8.10 [facility] Comment on above: Performed By: #### YULIYA COUGHLIN, CDP #### [address] [place], [facility]83 Control Cabinet Assembler: David Montez MD Basophils/100 WBC (Bld) 0 % Normal 0-2 [facility] Comment on above: Performed By: #### YULIYA COUGHLIN, CDP #### [facility] [address] [place] [address] [place], [facility]83 Control Cabinet Assembler: David Montez MD Eosinophils (Bld) [#/Vol] 0.21 10*3/uL Normal 0.00-0.44 [facility] Comment on above: Performed By: #### YULIYA COUGHLIN, CDP #### [facility] [address] [place], [facility]83 Control Cabinet Assembler: David Montez MD Eosinophils/100 WBC (Bld) 4 % Normal 1-4 [facility] Comment on above: Performed By: #### YULIYA COUGHLIN, CDP #### [address] [place], [facility]83 Control Cabinet Assembler: David Montez MD Erythrocyte distribution width (RBC) [Ratio] 12.8 % Normal 11.8-14.4 [facility] Comment on above: Performed By: #### YULIYA COUGHLIN, CDP #### [address] [place] [address] Control Cabinet Assembler: David Montez MD Hematocrit (Bld) [Volume fraction] 28.9 % Low 40.7-50.3 [facility] Comment on above: Performed By: #### YULIYA COUGHLIN, CDP #### [address] [place], [facility]83 Control Cabinet Assembler: David Montez MD Hemoglobin (Bld) [Mass/Vol] 9.5 g/dL Low 13.0-17.0 [facility] Comment on above: Performed By: #### YULIYA COUGHLIN, CDP #### [address] [place] [id number] Control Cabinet Assembler: David Montez MD Immature granulocytes/100 WBC (Bld) 0 % Normal 0 [facility] Comment on above: Performed By: #### YULIYA COUGHLIN, CDP #### [address] [place], [facility]83 Control Cabinet Assembler: David Montez MD Lymphocytes (Bld) [#/Vol] 1.74 10*3/uL Normal 1.10-3.70 [facility] Comment on above: Performed By: #### YULIYA COUGHLIN, CDP #### [address] [place] [address] Control Cabinet Assembler: David Montez MD Lymphocytes/100 WBC (Bld) 29 % Normal 24-43 [facility] Comment on above: Performed By: #### YULIYA COUGHLIN, CDP #### [address] [place], [facility]83 Control Cabinet Assembler: David Montez MD MCH (RBC) [Entitic mass] 32.8 pg Normal 25.2-33.5 [facility] Comment on above: Performed By: #### YULIYA COUGHLIN, CDP #### [address] [place], [facility]83 Control Cabinet Assembler: David Montez MD MCHC (RBC) [Mass/Vol] 32.9 g/dL Normal 28.4-34.8 [facility] Comment on above: Performed By: #### YULIYA COUGHLIN, CDP #### [address] [place], [facility]83 Control Cabinet Assembler: David Montez MD MCV (RBC) [Entitic vol] 99.7 fL Normal 82.6-102.9 [facility] Comment on above: Performed By: #### YULIYA COUGHLIN, CDP #### [address] [place], [facility]83 Control Cabinet Assembler: David Montez MD Monocytes (Bld) [#/Vol] 0.55 10*3/uL Normal 0.10-1.20 [facility] Comment on above: Performed By: #### YULIYA COUGHLIN, CDP #### [address] [place], [facility]83 Control Cabinet Assembler: David Montez MD Monocytes/100 WBC (Bld) 9 % Normal 3-12 [facility] Comment on above: Performed By: #### YULIYA COUGHLIN, CDP #### [address] [place], [facility]83 Control Cabinet Assembler: David Montez MD Neutrophil (Seg) 58 % Normal 36-65 [facility] Comment on above: Performed By: #### YULIYA COUGHLIN, CDP #### [facility] [address] [place], [place] [id number] Control Cabinet Assembler: David Montez MD NRBC Automated 0.0 per 100 WBC Normal 0.0 [facility] Comment on above: Performed By: #### YULIYA COUGHLIN, CDP #### [facility] [address] [place], [facility]83 Control Cabinet Assembler: David Montez MD Platelet mean volume (Bld) [Entitic vol] 9.1 fL Normal 8.1-13.5 [facility] Comment on above: Performed By: #### YULIYA COUGHLIN, CDP #### [facility] [address] [place] [address] Control Cabinet Assembler: David Montez MD Platelets (Bld) [#/Vol] 145 10*3/uL Normal 138-453 [facility] Comment on above: Performed By: #### YULIYA COUGHLIN, CDP #### [address] [place], [place] [id number] Control Cabinet Assembler: David Montez MD RBC (Bld) [#/Vol] 2.90 10*6/uL Low 4.21-5.77 [facility] Comment on above: Performed By: #### YULIYA COUGHLIN, CDP #### [address] [place] [address] Control Cabinet Assembler: David Montez MD WBC (Bld) [#/Vol] 6.0 10*3/uL Normal 3.5-11.3 [facility] Comment on above: Performed By: #### YULIYA COUGHLIN, CDP #### [facility] [address] [place], [place] [id number] Control Cabinet Assembler: David Montez MD COVID-19, [place] 09-07-2022 SARS-CoV-2 (COVID-19) RdRp gene POLO+probe Ql (Resp) Not detected Not Detected [facility] Comment on above: Rapid NAAT: The specimen is NEGATIVE for SARS-CoV-2, the novel coronavirus associated with COVID-19. The ID NOW COVID-19 assay is designed to detect the virus that causes COVID-19 in patients with signs and symptoms of infection who are suspected of COVID-19. An individual without symptoms of COVID-19 and who is not shedding SARS-CoV-2 virus would expect to have a negative (not detected) result in this assay. Negative results should be treated as presumptive and, if inconsistent with clinical signs and symptoms or necessary for patient management, should be tested with an alternative molecular assay. Negative results do not preclude SARS-CoV-2 infection and should not be used as the sole basis for patient management decisions. Fact sheet for Healthcare Providers: https://www.fda.gov/media/305551/download Fact sheet for Patients: https://www.fda.gov/media/825896/download Methodology: Isothermal Nucleic Acid Amplification Specimen Description .NASOPHARYNGEAL SWAB [facility] Comp Metabolic Pr/rfx MGon 0 - Albumin [Mass/Vol] 3.0 g/dL Low 3.5-5.2 [facility] Comment on above: Performed By: #### R ANNE MARIE [facility], CDP #### [facility] [address] [place] [address] Control Cabinet Assembler: David Montez MD Albumin/Glob Ratio 1.0 Normal 1.0-2.5 [facility] Comment on above: Performed By: #### R YULIYA KENNEY, CDP #### [facility] [address] [place] [address] Control Cabinet Assembler: David Montez MD Alkaline Phos 88 U/L Normal 40-129 [facility] Comment on above: Performed By: #### R YULIYA KENNEY, CDP #### [facility] [address] [place] [address] Control Cabinet Assembler: David Montez MD ALT [Catalytic activity/Vol] 23 U/L Normal 5-41 [facility] Comment on above: Performed By: #### R ANNE MARIE IPF, CDP #### [facility] [address] [place], [place] [id number] Control Cabinet Assembler: David Montez MD Anion gap [Moles/Vol] 7 mmol/L Low 9-17 [facility] Comment on above: Performed By: #### R ANNE MARIE, IPF, CDP #### [facility] [address] [place], [place] [id number] Control Cabinet Assembler: David Montez MD AST [Catalytic activity/Vol] 24 U/L Normal <40 [facility] Comment on above: Performed By: #### R ANNE MARIE IPF, CDP #### [facility] [address] [place], [place] [id number] Control Cabinet Assembler: David Montez MD Bilirubin [Mass/Vol] 0.3 mg/dL Normal 0.3-1.2 [facility] Comment on above: Performed By: #### R ANNE MARIE IPF, CDP #### [facility] [address] [place], [place] [id number] Control Cabinet Assembler: David Montez MD BUN/CRE Ratio 17 Normal 9-20 [facility] Comment on above: Performed By: #### R ANNE MARIE IPF, CDP #### [facility] [address] [place] [address] [place], [place] [phone] Control Cabinet Assembler: David Montez MD Calcium [Mass/Vol] 8.1 mg/dL Low 8.6-10.4 [facility] Comment on above: Performed By: #### R ANNE MARIE IPF, CDP #### [facility] [address] [place] [address] Control Cabinet Assembler: David Montez MD Chloride [Moles/Vol] 109 mmol/L High 98-107 [facility] Comment on above: Performed By: #### R EJEC, IPF, CDP #### [facility] [address] [place] [address] Control Cabinet Assembler: David Montez MD CO2 [Moles/Vol] 26 mmol/L Normal 20-31 [facility] Comment on above: Performed By: #### YULIYA COUGHLIN, CDP #### [facility] [address] [place] [address] Control Cabinet Assembler: David Montez MD Creatinine [Mass/Vol] 0.81 mg/dL Normal 0.70-1.20 [facility] Comment on above: Performed By: #### YULIYA COUGHLIN CDP #### [facility] [address] [place] [address] Control Cabinet Assembler: David Montez MD GFR/1.73 sq M.predicted among non-blacks MDRD (S/P/Bld) [Vol rate/Area] mL/min/{1.73_m2} Normal >60 [facility] Comment on above: Result Comment: These results are not intended for use in patients <18 years of age. eGFR results are calculated without a race factor using the 2020 CKD-EPI equation. Careful clinical correlation is recommended, particularly when comparing to results calculated using previous equations. The CKD-EPI equation is less accurate in patients with extremes of muscle mass, extra-renal metabolism of creatine, excessive creatine ingestion, or following therapy that affects renal tubular secretion. Performed By: #### YULIYA COUGHLIN CDP #### [facility] [address] [place] [address] Control Cabinet Assembler: David Montez MD Glucose [Mass/Vol] 97 mg/dL Normal 70-99 [facility] Comment on above: Performed By: #### YULIYA COUGHLIN, CDP #### [facility] [address] [place] [address] Control Cabinet Assembler: David Montez MD Potassium [Moles/Vol] 3.7 mmol/L Normal 3.7-5.3 [facility] Comment on above: Performed By: #### YULIYA COUGHLIN, CDP #### [facility] [address] [place] [address] Control Cabinet Assembler: David Montez MD Protein [Mass/Vol] 5.9 g/dL Low 6.4-8.3 [facility] Comment on above: Performed By: #### YULIYA COUGHLIN, CDP #### [facility] [address] [place] [address] Control Cabinet Assembler: David Montez MD Sodium [Moles/Vol] 142 mmol/L Normal 135-144 [facility] Comment on above: Performed By: #### YULIYA COUGHLIN, CDP #### [facility] [address] [place] [address] Control Cabinet Assembler: David Montez MD Urea nitrogen [Mass/Vol] 14 mg/dL Normal 8-23 [facility] Comment on above: Performed By: #### YULIYA COUGHLIN, CDP #### [facility] [address] [place] [address] Control Cabinet Assembler: David Montez MD Comprehensive Metabolic Pane l w/ Reflex to on 09-07-2022 Albumin [Mass/Vol] 3.0 g/dL Low 3.5 - 5.2 g/dL [facility] Albumin/Globulin [Mass ratio] 1.0 {ratio} 1.0 - 2.5 [facility] ALP [Catalytic activity/Vol] 88 U/L 40 - 129 U/L [facility] ALT [Catalytic activity/Vol] 23 U/L 5 - 41 U/L [facility] Anion gap [Moles/Vol] 7 mmol/L Low 9 - 17 mmol/L [facility] AST [Catalytic activity/Vol] 24 U/L NINF - 40 U/L [facility] Bilirubin [Mass/Vol] 0.3 mg/dL 0.3 - 1 .2 mg/dL [facility] Calcium [Mass/Vol] 8.1 mg/dL Low 8.6 - 10. 4 mg/dL [facility] Chloride [Moles/Vol] 109 mmol/L High 98 - 10 7 mmol/L [facility] CO2 [Moles/Vol] 26 mmol/L 20 - 31 mmol/L [facility] Creatinine [Mass/Vol] 0.81 mg/dL 0.70 - 1.20 mg/dL [facility] GFR/1.73 sq M.predicted MDRD (S/P/Bld) [Vol rate/Area] - PINF [facility] Comment on above: These results are not intended for use in patients <18 years of age. eGFR results are calculated without a race factor using the 2020 CKD-EPI equation. Careful clinical correlation is recommended, particularly when comparing to results calculated using previous equations. The CKD-EPI equation is less accurate in patients with extremes of muscle mass, extra-renal metabolism of creatine, excessive creatine ingestion, or following therapy that affects renal tubular secretion. Glucose [Mass/Vol] 97 mg/dL 70 - 99 mg/dL [facility] Interpretation and review of laboratory results Abnormal [facility] Potassium [Moles/Vol] 3.7 mmol/L 3.7 - 5.3 mmol/L [facility] Protein [Mass/Vol] 5.9 g/dL Low 6.4 - 8.3 g/dL [facility] Sodium [Moles/Vol] 142 mmol/L 135 - 144 mmol/L [facility] Urea nitrogen [Mass/Vol] 14 mg/dL 8 - 23 mg/dL [facility] Urea nitrogen/Creatinine [Mass ratio] 17 mg/mg 9 - 20 [facility] EKG Rhythm Stripon 3 KT [facility] [id number] 09-07-2022 SARS-CoV-2 (COVID-19) RNA POLO+probe Ql (Unsp spec) Not detected Normal [facility] Comment on above: Result Comment: Rapid NAAT: The specimen is NEGATIVE for SARS-CoV-2, the novel coronavirus associated with COVID-19. The ID NOW COVID-19 assay is designed to detect the virus that causes COVID-19 in patients with signs and symptoms of infection who are suspected of COVID-19. An individual without symptoms of COVID-19 and who is not shedding SARS-CoV-2 virus would expect to have a negative (not detected) result in this assay. Negative results should be treated as presumptive and, if inconsistent with clinical signs and symptoms or necessary for patient management, should be tested with an alternative molecular assay. Negative results do not preclude SARS-CoV-2 infection and should not be used as the sole basis for patient management decisions. Fact sheet for Healthcare Providers: https://www.fda.gov/media/427389/download Fact sheet for Patients: https://www.fda.gov/media/409478/download Methodology: Isothermal Nucleic Acid Amplification Performed By: #### R ANNE MARIE, IPF, CDP #### [facility] [address] [place] [address] Control Cabinet Assembler: David Montez MD XR ABDOMEN (2 VIEWS)on 09-07 XR ABDOMEN (2 VIEWS) EXAMINATION: 2 XRAY VIEWS OF THE ABDOMEN 09/07/2022 7:35 am COMPARISON: Abdominal radiographs dated 09/06/2022 and 09/05/2022 HISTORY: ORDERING SYSTEM PROVIDED HISTORY: sbo TECHNOLOGIST PROVIDED HISTORY: Sbo FINDINGS: There is scattered gas in small and large bowel loops. No abnormal bowel distention appreciated on the current radiographs. Visualized lung bases are clear. IMPRESSION: Scattered gas in small and large bowel loops, suggesting resolving small-bowel obstruction. Interpreted by: Kristan Bee DO Signed by: Kristan Bee DO 09/07/22 Final result Normal [facility] Scattered gas in small and large bowel loops, suggesting resolving small-bowel obstruction. [facility] EXAMINATION: 2 XRAY VIEWS OF THE ABDOMEN 09/07/2022 7:35 am COMPARISON: Abdominal radiographs dated 09/06/2022 and 09/05/2022 HISTORY: ORDERING SYSTEM PROVIDED HISTORY: sbo TECHNOLOGIST PROVIDED HISTORY: Sbo FINDINGS: There is scattered gas in small and large bowel loops. No abnormal bowel distention appreciated on the current radiographs. Visualized lung bases are clear. [facility] Kristan Bee DO - 09/07/2022 EXAMINATION: 2 XRAY VIEWS OF THE ABDOMEN 09/07/2022 7:35 am COMPARISON: Abdominal radiographs dated 09/06/2022 and 09/05/2022 HISTORY: ORDERING SYSTEM PROVIDED HISTORY: sbo TECHNOLOGIST PROVIDED HISTORY: Sbo FINDINGS: There is scattered gas in small and large bowel loops. No abnormal bowel distention appreciated on the current radiographs. Visualized lung bases are clear. IMPRESSION: Scattered gas in small and large bowel loops, suggesting resolving small-bowel obstruction. [facility] Radiology Study observation (narrative) [facility] CBC auto differentialon 07-0 Basophils (Bld) [#/Vol] 0.04 10*3/uL [facility] Basophils/100 WBC (Bld) 1 % 0 - 2 % [facility] Eosinophils (Bld) [#/Vol] 0.11 10*3/uL [facility] Eosinophils/100 WBC (Bld) 2 % 1 - 4 % [facility] Erythrocyte distribution width (RBC) [Ratio] 12.7 % 11.8 - 14.4 % [facility] Hematocrit (Bld) [Volume fraction] 29.8 % Low 40.7 - 50.3 % [facility] Hemoglobin (Bld) [Mass/Vol] 9.8 g/dL Low 13.0 - 17.0 g/dL [facility] Immature granulocytes (Bld) [#/Vol] [facility] Immature granulocytes/100 WBC (Bld) 0 % 0 [facility] Interpretation and review of laboratory results Abnormal [facility] Lymphocytes/100 WBC (Bld) 20 % Low 24 - 43 % [facility] Lymphocytes/100 WBC (Bld) 1.36 % [facility] MCH (RBC) [Entitic mass] 33.0 pg 25.2 - 33.5 pg [facility] MCHC (RBC) [Mass/Vol] 32.9 g/dL 28.4 - 34.8 g/dL [facility] MCV (RBC) [Entitic vol] 100.3 fL 82.6 - 102.9 fL [facility] Monocytes/100 WBC (Bld) 9 % 3 - 12 % [facility] Monocytes/100 WBC (Bld) 0.62 % [facility] Neutrophils/100 WBC (Bld) 69 % High 36 - 65 % [facility] Nucleated RBC/100 WBC (Bld) [Ratio] 0.0 % 0.0 per 100 WBC [facility] Platelet mean volume (Bld) [Entitic vol] 9.6 fL 8.1 - 13.5 fL [facility] Platelets (Bld) [#/Vol] 132 10*3/uL Low [facility] RBC (Bld) [#/Vol] 2.97 10*6/uL Low 4.21 - 5.7 7 m/uL [facility] Segmented neutrophils/100 WBC (Bld) 4.79 % [facility] WBC other (Bld) [#/Vol] 6.9 [facility] CBC with Diffon 09-06-2022 Abs. Basophil 0.04 k/uL Normal 0.00-0.20 [facility] Comment on above: Performed By: #### C DP, CMPX #### [facility] [address] [place] [address] [place] [address] Control Cabinet Assembler: David Montez MD Abs.Imm.Granulocyte <0.03 Normal 0.00-0.30 [facility] Comment on above: Performed By: #### C DP, CMPX #### [facility] [address] [place] [address] Control Cabinet Assembler: David Montez MD Abs.Neutrophil (Seg) 4.79 k/uL Normal 1.50-8.10 [facility] Comment on above: Performed By: #### C DP, CMPX #### [facility] [address] [place] [address] Control Cabinet Assembler: David Montez MD Basophils/100 WBC (Bld) 1 % Normal 0-2 [facility] Comment on above: Performed By: #### C DP, CMPX #### [facility] [address] [place] [address] [place] [place], [place] [id number] Control Cabinet Assembler: David Montez MD Eosinophils (Bld) [#/Vol] 0.11 10*3/uL Normal 0.00-0.44 [facility] Comment on above: Performed By: #### C DP, CMPX #### [address] [place], [place] [phone] Control Cabinet Assembler: David Montez MD Eosinophils/100 WBC (Bld) 2 % Normal 1-4 [facility] Comment on above: Performed By: #### C DP, CMPX #### [address] [place], [facility]83 Control Cabinet Assembler: David Montez MD Erythrocyte distribution width (RBC) [Ratio] 12.7 % Normal 11.8-14.4 [facility] Comment on above: Performed By: #### C DP, CMPX #### [address] [place], [facility]83 Control Cabinet Assembler: David Montez MD Hematocrit (Bld) [Volume fraction] 29.8 % Low 40.7-50.3 [facility] Comment on above: Performed By: #### C DP, CMPX #### [address] [place], [facility]83 Control Cabinet Assembler: David Montez MD Hemoglobin (Bld) [Mass/Vol] 9.8 g/dL Low 13.0-17.0 [facility] Comment on above: Performed By: #### C DP, CMPX #### [address] [place] [address] Control Cabinet Assembler: David Montez MD Immature granulocytes/100 WBC (Bld) 0 % Normal 0 [facility] Comment on above: Performed By: #### C DP, CMPX #### [address] [place], [facility]83 Control Cabinet Assembler: David Montez MD Lymphocytes (Bld) [#/Vol] 1.36 10*3/uL Normal 1.10-3.70 [facility] Comment on above: Performed By: #### C DP, CMPX #### [facility] [address] [place], [place] [phone] Control Cabinet Assembler: David Montez MD Lymphocytes/100 WBC (Bld) 20 % Low 24-43 [facility] Comment on above: Performed By: #### C DP, CMPX #### [facility] [address] [place] [address] Control Cabinet Assembler: David Montez MD MCH (RBC) [Entitic mass] 33.0 pg Normal 25.2-33.5 [facility] Comment on above: Performed By: #### C DP, CMPX #### [address] [place] [address] Control Cabinet Assembler: David Montez MD MCHC (RBC) [Mass/Vol] 32.9 g/dL Normal 28.4-34.8 [facility] Comment on above: Performed By: #### C DP, CMPX #### [address] [place], [place] [phone] Control Cabinet Assembler: David Montez MD MCV (RBC) [Entitic vol] 100.3 fL Normal 82.6-102.9 [facility] Comment on above: Performed By: #### C DP, CMPX #### [address] [place] [address] Control Cabinet Assembler: David Montez MD Monocytes (Bld) [#/Vol] 0.62 10*3/uL Normal 0.10-1.20 [facility] Comment on above: Performed By: #### C DP, CMPX #### [facility] [address] [place] [address] Control Cabinet Assembler: David Montez MD Monocytes/100 WBC (Bld) 9 % Normal 3-12 [facility] Comment on above: Performed By: #### C DP, CMPX #### [facility] [address] [place], [place] 0137483 Control Cabinet Assembler: David Montez MD Neutrophil (Seg) 69 % High 36-65 [facility] Comment on above: Performed By: #### C DP, CMPX #### [facility] [address] [place] [address] Control Cabinet Assembler: David Montez MD NRBC Automated 0.0 per 100 WBC Normal 0.0 [facility] Comment on above: Performed By: #### C DP, CMPX #### [facility] [address] [place], [place] [phone] Control Cabinet Assembler: David Montez MD Platelet mean volume (Bld) [Entitic vol] 9.6 fL Normal 8.1-13.5 [facility] Comment on above: Performed By: #### C DP, CMPX #### [address] [place] [address] Control Cabinet Assembler: David Montez MD Platelets (Bld) [#/Vol] 132 10*3/uL Low 138-453 [facility] Comment on above: Performed By: #### C DP, CMPX #### [facility] [address] [place] [address] [place]. [place], [place] [phone] Control Cabinet Assembler: David Montez MD RBC (Bld) [#/Vol] 2.97 10*6/uL Low 4.21-5.77 [facility] Comment on above: Performed By: #### C DP, CMPX #### [facility] [address] [place], [place] [phone] Control Cabinet Assembler: David Montez MD WBC (Bld) [#/Vol] 6.9 10*3/uL Normal 3.5-11.3 [facility] Comment on above: Performed By: #### C DP, CMPX #### [facility] [address] [place] [address] Control Cabinet Assembler: David Montez MD Comp Metabolic Pr/rfx MGon 0 09-06-2022 Albumin [Mass/Vol] 3.2 g/dL Low 3.5-5.2 [facility] Comment on above: Performed By: #### C DP, CMPX #### [facility] [address] [place], [place] [phone] Control Cabinet Assembler: David Montez MD Albumin/Glob Ratio 1.0 Normal 1.0-2.5 [facility] Comment on above: Performed By: #### C DP, CMPX #### [facility] [address] [place], [place] [phone] Control Cabinet Assembler: David Montez MD Alkaline Phos 91 U/L Normal 40-129 [facility] Comment on above: Performed By: #### C DP, CMPX #### [facility] [address] [place], [place] [phone] Control Cabinet Assembler: David Montez MD ALT [Catalytic activity/Vol] 16 U/L Normal 5-41 [facility] Comment on above: Performed By: #### C DP, CMPX #### [facility] [address] [place], [place] [phone] Control Cabinet Assembler: David Montez MD Anion gap [Moles/Vol] 9 mmol/L Normal 9-17 [facility] Comment on above: Performed By: #### C DP, CMPX #### [facility] [address] [place] [address] Control Cabinet Assembler: David Montez MD AST [Catalytic activity/Vol] 20 U/L Normal <40 [facility] Comment on above: Performed By: #### C DP, CMPX #### [facility] [address] [place], [place] [phone] Control Cabinet Assembler: David Montez MD Bilirubin [Mass/Vol] 0.7 mg/dL Normal 0.3-1.2 [facility] Comment on above: Performed By: #### C DP, CMPX #### [facility] [address] [place], [place] [phone] Control Cabinet Assembler: David Montez MD BUN/CRE Ratio 28 High 9-20 [facility] Comment on above: Performed By: #### C DP, CMPX #### [facility] [address] [place], [place] 1934383 Control Cabinet Assembler: David Montez MD Calcium [Mass/Vol] 8.3 mg/dL Low 8.6-10.4 [facility] Comment on above: Performed By: #### C DP, CMPX #### [facility] [address] [place], [place] [phone] Control Cabinet Assembler: David Montez MD Chloride [Moles/Vol] 108 mmol/L High 98-107 [facility] Comment on above: Performed By: #### C DP, CMPX #### [facility] [address] [place], [place] [phone] Control Cabinet Assembler: David Montez MD CO2 [Moles/Vol] 25 mmol/L Normal 20-31 [facility] Comment on above: Performed By: #### C DP, CMPX #### [facility] [address] [place], [place] 8687083 Control Cabinet Assembler: David Montez MD Creatinine [Mass/Vol] 0.68 mg/dL Low 0.70-1.20 [facility] Comment on above: Performed By: #### C DP, CMPX #### [facility] [address] [place], [place] [phone] Control Cabinet Assembler: David Montez MD GFR/1.73 sq M.predicted among non-blacks MDRD (S/P/Bld) [Vol rate/Area] mL/min/{1.73_m2} Normal >60 [facility] Comment on above: Result Comment: These results are not intended for use in patients <18 years of age. eGFR results are calculated without a race factor using the 2020 CKD-EPI equation. Careful clinical correlation is recommended, particularly when comparing to results calculated using previous equations. The CKD-EPI equation is less accurate in patients with extremes of muscle mass, extra-renal metabolism of creatine, excessive creatine ingestion, or following therapy that affects renal tubular secretion. Performed By: #### C DP, CMPX #### [facility] [address] [place] [address] [place] [address] Control Cabinet Assembler: David Montez MD Glucose [Mass/Vol] 84 mg/dL Normal 70-99 [facility] Comment on above: Performed By: #### C DP, CMPX #### [address] [place] [address] Control Cabinet Assembler: David Montez MD Potassium [Moles/Vol] 3.6 mmol/L Low 3.7-5.3 [facility] Comment on above: Performed By: #### C DP, CMPX #### [address] [place], [place] [phone] Control Cabinet Assembler: David Montez MD Protein [Mass/Vol] 6.5 g/dL Normal 6.4-8.3 [facility] Comment on above: Performed By: #### C DP, CMPX #### [facility] [address] [place] [address] [place] [address] Control Cabinet Assembler: David Montez MD Sodium [Moles/Vol] 142 mmol/L Normal 135-144 [facility] Comment on above: Performed By: #### C DP, CMPX #### [facility] [address] [place] [address] [place] [address] Control Cabinet Assembler: David Montez MD Urea nitrogen [Mass/Vol] 19 mg/dL Normal 8-23 [facility] Comment on above: Performed By: #### C DP, CMPX #### [facility] [address] [place] [address] Control Cabinet Assembler: David Montez MD Comprehensive Metabolic Pane l w/ Reflex to MGon 09-06-2022 Albumin [Mass/Vol] 3.2 g/dL Low 3.5 - 5.2 g/dL [facility] Albumin/Globulin [Mass ratio] 1.0 {ratio} 1.0 - 2.5 [facility] ALP [Catalytic activity/Vol] 91 U/L 40 - 129 U/L [facility] ALT [Catalytic activity/Vol] 16 U/L 5 - 41 U/L [facility] Anion gap [Moles/Vol] 9 mmol/L 9 - 17 mmol/L [facility] AST [Catalytic activity/Vol] 20 U/L NINF - 40 U/L [facility] Bilirubin [Mass/Vol] 0.7 mg/dL 0.3 - 1 .2 mg/dL [facility] Calcium [Mass/Vol] 8.3 mg/dL Low 8.6 - 10. 4 mg/dL [facility] Chloride [Moles/Vol] 108 mmol/L High 98 - 10 7 mmol/L [facility] CO2 [Moles/Vol] 25 mmol/L 20 - 31 mmol/L [facility] Creatinine [Mass/Vol] 0.68 mg/dL Low 0.70 - 1.20 mg/dL [facility] GFR/1.73 sq M.predicted MDRD (S/P/Bld) [Vol rate/Area] - PINF [facility] Comment on above: These results are not intended for use in patients <18 years of age. eGFR results are calculated without a race factor using the 2020 CKD-EPI equation. Careful clinical correlation is recommended, particularly when comparing to results calculated using previous equations. The CKD-EPI equation is less accurate in patients with extremes of muscle mass, extra-renal metabolism of creatine, excessive creatine ingestion, or following therapy that affects renal tubular secretion. Glucose [Mass/Vol] 84 mg/dL 70 - 99 mg/dL [facility] Interpretation and review of laboratory results Abnormal [facility] Potassium [Moles/Vol] 3.6 mmol/L Low 3.7 - 5.3 mmol/L [facility] Protein [Mass/Vol] 6.5 g/dL 6.4 - 8.3 g/dL [facility] Sodium [Moles/Vol] 142 mmol/L 135 - 144 mmol/L [facility] Urea nitrogen [Mass/Vol] 19 mg/dL 8 - 23 mg/dL [facility] Urea nitrogen/Creatinine [Mass ratio] 28 mg/mg High 9 - 20 [facility] EKG Rhythm Stripon [facility] XR ABDOMEN (KUB) (SINGLE AP VIEW)on 09-06-2022 XR ABDOMEN (KUB) (SINGLE AP VIEW) EXAMINATION: ONE SUPINE XRAY VIEW(S) OF THE ABDOMEN 09/06/2022 7:28 am COMPARISON: 09/05/2022, 09/04/2022 HISTORY: ORDERING SYSTEM PROVIDED HISTORY: SBO, comparison study TECHNOLOGIST PROVIDED HISTORY: SBO, comparison study FINDINGS: Nasogastric tube is no longer visualized. There continue to be a few mildly dilated gas-filled small bowel loops in the mid abdomen with gas demonstrated in the colon to the rectum. The degree of small-bowel distention has improved since the prior exam. Findings are suggestive of improving/resolving partial small bowel obstruction. Degenerative changes of the spine. Small pelvic phleboliths. IMPRESSION: Improving/resolving small bowel obstruction Interpreted by: Anton Dubon MD Signed by: Anton Duobn MD 09/06/22 Final result Normal [facility] Improving/resolving small bowel obstruction [facility] EXAMINATION: ONE SUPINE XRAY VIEW(S) OF THE ABDOMEN 09/06/2022 7:28 am COMPARISON: 09/05/2022, 09/04/2022 HISTORY: ORDERING SYSTEM PROVIDED HISTORY: SBO, comparison study TECHNOLOGIST PROVIDED HISTORY: SBO, comparison study FINDINGS: Nasogastric tube is no longer visualized. There continue to be a few mildly dilated gas-filled small bowel loops in the mid abdomen with gas demonstrated in the colon to the rectum. The degree of small-bowel distention has improved since the prior exam. Findings are suggestive of improving/resolving partial small bowel obstruction. Degenerative changes of the spine. Small pelvic phleboliths. [facility] Anton Garcia MD - 09/06/2022 EXAMINATION: ONE SUPINE XRAY VIEW(S) OF THE ABDOMEN 09/06/2022 7:28 am COMPARISON: 09/05/2022, 09/04/2022 HISTORY: ORDERING SYSTEM PROVIDED HISTORY: SBO, comparison study TECHNOLOGIST PROVIDED HISTORY: SBO, comparison study FINDINGS: Nasogastric tube is no longer visualized. There continue to be a few mildly dilated gas-filled small bowel loops in the mid abdomen with gas demonstrated in the colon to the rectum. The degree of small-bowel distention has improved since the prior exam. Findings are suggestive of improving/resolving partial small bowel obstruction. Degenerative changes of the spine. Small pelvic phleboliths. IMPRESSION: Improving/resolving small bowel obstruction [facility] Study observation (narrative) [facility] XR ABDOMEN (KUB) (SINGLE AP VIEW)Ordered By: Anton Dubon on 09-06-2022 [facility] [employer] Work Phone: CBC auto differentialon Basophils (Bld) [#/Vol] 0.03 10*3/uL [facility] Basophils/100 WBC (Bld) 0 % 0 - 2 % [facility] [employer] Eosinophils (Bld) [#/Vol] [facility] [employer] Eosinophils/100 WBC (Bld) 0 % Low 1 - 4 % [facility] [employer] Erythrocyte distribution width (RBC) [Ratio] 13.0 % 11.8 - 14.4 % [facility] [employer] Hematocrit (Bld) [Volume fraction] 32.0 % Low 40.7 - 50.3 % [facility] Hemoglobin (Bld) [Mass/Vol] 10.5 g/dL Low 13.0 - 17.0 g/dL [facility] [employer] Immature granulocytes (Bld) [#/Vol] 0.04 10*3/uL [facility] [employer] Immature granulocytes/100 WBC (Bld) 0 % 0 [facility] Interpretation and review of laboratory results Abnormal [facility] Lymphocytes/100 WBC (Bld) 11 % Low 24 - 43 % [facility] Lymphocytes/100 WBC (Bld) 1.34 % [facility] MCH (RBC) [Entitic mass] 32.7 pg 25.2 - 33.5 pg [facility] MCHC (RBC) [Mass/Vol] 32.8 g/dL 28.4 - 34.8 g/dL [facility] MCV (RBC) [Entitic vol] 99.7 fL 82.6 - 102.9 fL [facility] Monocytes/100 WBC (Bld) 8 % 3 - 12 % [facility] Monocytes/100 WBC (Bld) 1.01 % [facility] Neutrophils/100 WBC (Bld) 80 % High 36 - 65 % [facility] Nucleated RBC/100 WBC (Bld) [Ratio] 0.0 % 0.0 per 100 WBC [facility] Platelet mean volume (Bld) [Entitic vol] 9.2 fL 8.1 - 13.5 fL [facility] Platelets (Bld) [#/Vol] 147 10*3/uL [facility] RBC (Bld) [#/Vol] 3.21 10*6/uL Low 4.21 - 5.7 7 m/uL [facility] Segmented neutrophils/100 WBC (Bld) 9.62 % High [facility] WBC other (Bld) [#/Vol] 12.1 High [facility] CBC with Diffon 09-05-2022 Abs. Basophil 0.03 k/uL Normal 0.00-0.20 [facility] Comment on above: Performed By: #### R YULIYA KENNEY, CDP #### [facility] [address] [place] [address] [place] [address] Control Cabinet Assembler: David Montez MD Abs. Eosinophil <0.03 Normal 0.00-0.44 [facility] Comment on above: Performed By: #### R YULIYA KENNEY, CDP #### [facility] [address] [place] [facility]83 Control Cabinet Assembler: David Montez MD Abs.Imm.Granulocyte 0.04 k/uL Normal 0.00-0.30 [facility] Comment on above: Performed By: #### YULIYA COUGHLIN, CDP #### [facility] [address] [place] [address] [place] [id number] Control Cabinet Assembler: David Montez MD Abs.Neutrophil (Seg) 9.62 k/uL High 1.50-8.10 [facility] Comment on above: Performed By: #### YULIYA COUGHLIN, CDP #### [address] [place] [id number] Control Cabinet Assembler: David Montez MD Basophils/100 WBC (Bld) 0 % Normal 0-2 [facility] Comment on above: Performed By: #### YULIYA COUGHLIN, CDP #### [address] [place], [facility]83 Control Cabinet Assembler: David Montez MD Eosinophils/100 WBC (Bld) 0 % Low 1-4 [facility] Comment on above: Performed By: #### YULIYA COUGHLIN, CDP #### [address] [place], [facility]83 Control Cabinet Assembler: David Montez MD Erythrocyte distribution width (RBC) [Ratio] 13.0 % Normal 11.8-14.4 [facility] Comment on above: Performed By: #### YULIYA COUGHLIN, CDP #### [address] [place], [facility]83 Control Cabinet Assembler: David Montez MD Hematocrit (Bld) [Volume fraction] 32.0 % Low 40.7-50.3 [facility] Comment on above: Performed By: #### YULIYA COUGHLIN, CDP #### [address] [place] [id number] Control Cabinet Assembler: David Montez MD Hemoglobin (Bld) [Mass/Vol] 10.5 g/dL Low 13.0-17.0 [facility] Comment on above: Performed By: #### YULIYA COUGHLIN, CDP #### [address] [place], [place] [id number] Control Cabinet Assembler: David Montez MD Immature granulocytes/100 WBC (Bld) 0 % Normal 0 [facility] Comment on above: Performed By: #### YULIYA COUGHLIN, CDP #### [facility] [address] [place] [address] [place]. [place], [place] [id number] Control Cabinet Assembler: David Montez MD Lymphocytes (Bld) [#/Vol] 1.34 10*3/uL Normal 1.10-3.70 [facility] Comment on above: Performed By: #### YULIYA COUGHLIN, CDP #### [address] [place], [place] [phone] Control Cabinet Assembler: David Montez MD Lymphocytes/100 WBC (Bld) 11 % Low 24-43 [facility] Comment on above: Performed By: #### YULIYA COUGHLIN, CDP #### [address] [place], [place] [phone] Control Cabinet Assembler: David Montez MD MCH (RBC) [Entitic mass] 32.7 pg Normal 25.2-33.5 [facility] Comment on above: Performed By: #### YULIYA COUGHLIN, CDP #### [address] [place], [place] [phone] Control Cabinet Assembler: David Montez MD MCHC (RBC) [Mass/Vol] 32.8 g/dL Normal 28.4-34.8 [facility] Comment on above: Performed By: #### YULIYA COUGHLIN, CDP #### [address] [place] [address] Control Cabinet Assembler: David Montez MD MCV (RBC) [Entitic vol] 99.7 fL Normal 82.6-102.9 [facility] Comment on above: Performed By: #### YULIYA COUGHLIN, CDP #### [facility] [address] [place], [place] [phone] Control Cabinet Assembler: David Montez MD Monocytes (Bld) [#/Vol] 1.01 10*3/uL Normal 0.10-1.20 [facility] Comment on above: Performed By: #### YULIYA COUGHLIN, CDP #### [facility] [address] [place], [place] [phone] Control Cabinet Assembler: David Montez MD Monocytes/100 WBC (Bld) 8 % Normal 3-12 [facility] Comment on above: Performed By: #### YULIYA COUGHLIN, CDP #### [address] [place], [facility]83 Control Cabinet Assembler: David Montez MD Neutrophil (Seg) 80 % High 36-65 [facility] Comment on above: Performed By: #### YULIYA COUGHLIN, CDP #### [address] [place], [place] [phone] Control Cabinet Assembler: David Montez MD NRBC Automated 0.0 per 100 WBC Normal 0.0 [facility] Comment on above: Performed By: #### YULIYA COUGHLIN, CDP #### [facility] [address] [place], [facility]83 Control Cabinet Assembler: David Montez MD Platelet mean volume (Bld) [Entitic vol] 9.2 fL Normal 8.1-13.5 [facility] Comment on above: Performed By: #### YULIYA COUGHLIN, CDP #### [facility] [address] [place] [address] Control Cabinet Assembler: David Montez MD Platelets (Bld) [#/Vol] 147 10*3/uL Normal 138-453 [facility] Comment on above: Performed By: #### R ANNE MARIE IPF, CDP #### [facility] [address] [place], [place] [phone] Control Cabinet Assembler: David Montez MD RBC (Bld) [#/Vol] 3.21 10*6/uL Low 4.21-5.77 [facility] Comment on above: Performed By: #### Rick KENNEY IPF, CDP #### [facility] [address] [place], [place] [phone] Control Cabinet Assembler: David Montez MD WBC (Bld) [#/Vol] 12.1 10*3/uL High 3.5-11.3 [facility] Comment on above: Performed By: #### Rick KENNEY IPF, CDP #### [facility] [address] [place], [place] [phone] Control Cabinet Assembler: David Montez MD Comp Metabolic Pr/rfx MGon 0 09-05-2022 Albumin [Mass/Vol] 3.7 g/dL Normal 3.5-5.2 [facility] Comment on above: Performed By: #### YULIYA COUGHLIN, CDP #### [facility] [address] [place], [place] [phone] Control Cabinet Assembler: David Montez MD Albumin/Glob Ratio 1.2 Normal 1.0-2.5 [facility] Comment on above: Performed By: #### Rick KENNEY IPF, CDP #### [facility] [address] [place], [place] 2030483 Control Cabinet Assembler: David Montez MD Alkaline Phos 98 U/L Normal 40-129 [facility] Comment on above: Performed By: #### R ANNE MARIE, IPF, CDP #### [facility] [address] [place], [place] [phone] Control Cabinet Assembler: David Montez MD ALT [Catalytic activity/Vol] 12 U/L Normal 5-41 [facility] Comment on above: Performed By: #### R EJRELL, IPF, CDP #### [facility] [address] [place], [place] [phone] Control Cabinet Assembler: David Montez MD Anion gap [Moles/Vol] 12 mmol/L Normal 9-17 [facility] Comment on above: Performed By: #### R ANNE MARIE, IPF, CDP #### [facility] [address] [place], [place] [phone] Control Cabinet Assembler: David Montez MD AST [Catalytic activity/Vol] 13 U/L Normal <40 [facility] Comment on above: Performed By: #### R ANNE MARIE, IPF, CDP #### [facility] [address] [place], [place] 1078683 Control Cabinet Assembler: David Montez MD Bilirubin [Mass/Vol] 0.8 mg/dL Normal 0.3-1.2 [facility] Comment on above: Performed By: #### R ANNE MARIE, IPF, CDP #### [address] [place], [place] [phone] Control Cabinet Assembler: David Montez MD BUN/CRE Ratio 22 High 9-20 [facility] Comment on above: Performed By: #### R ANNE MARIE, IPF, CDP #### [facility] [address] [place] [address] [place]. [place], [place] [phone] Control Cabinet Assembler: David Montez MD Calcium [Mass/Vol] 8.7 mg/dL Normal 8.6-10.4 [facility] Comment on above: Performed By: #### R ANNE MARIE, IPF, CDP #### [facility] [address] [place] [address] [place] [address] Control Cabinet Assembler: David Montez MD Chloride [Moles/Vol] 104 mmol/L Normal 98-107 [facility] Comment on above: Performed By: #### R EJEC, IPF, CDP #### [facility] [address] [place] [address] Control Cabinet Assembler: David Montez MD CO2 [Moles/Vol] 25 mmol/L Normal 20-31 [facility] Comment on above: Performed By: #### YULIYA COUGHLIN, CDP #### [facility] [address] [place] [address] Control Cabinet Assembler: David Montez MD Creatinine [Mass/Vol] 0.85 mg/dL Normal 0.70-1.20 [facility] Comment on above: Performed By: #### YULIYA COUGHLIN, CDP #### [facility] [address] [place] [address] Control Cabinet Assembler: David Montez MD GFR/1.73 sq M.predicted among non-blacks MDRD (S/P/Bld) [Vol rate/Area] mL/min/{1.73_m2} Normal >60 [facility] Comment on above: Result Comment: These results are not intended for use in patients <18 years of age. eGFR results are calculated without a race factor using the 2020 CKD-EPI equation. Careful clinical correlation is recommended, particularly when comparing to results calculated using previous equations. The CKD-EPI equation is less accurate in patients with extremes of muscle mass, extra-renal metabolism of creatine, excessive creatine ingestion, or following therapy that affects renal tubular secretion. Performed By: #### YULIYA COUGHLIN, CDP #### [address] [place] [address] Control Cabinet Assembler: David Montez MD Glucose [Mass/Vol] 94 mg/dL Normal 70-99 [facility] Comment on above: Performed By: #### YULIYA COUGHLIN, CDP #### [facility] [address] [place] [address] Control Cabinet Assembler: David Montez MD Potassium [Moles/Vol] 3.7 mmol/L Normal 3.7-5.3 [facility] Comment on above: Performed By: #### YULIYA COUGHLIN, CDP #### [facility] [address] [place] [address] Control Cabinet Assembler: David Montez MD Protein [Mass/Vol] 6.8 g/dL Normal 6.4-8.3 [facility] Comment on above: Performed By: #### R YULIYA KENNEY, CDP #### [facility] [address] [place] [address] Control Cabinet Assembler: David Montez MD Sodium [Moles/Vol] 141 mmol/L Normal 135-144 [facility] Comment on above: Performed By: #### R YULIYA KENNEY, CDP #### [facility] [address] [place] [address] Control Cabinet Assembler: David Montez MD Urea nitrogen [Mass/Vol] 19 mg/dL Normal 8-23 [facility] Comment on above: Performed By: #### R YULIYA KENNEY, CDP #### [facility] [address] [place] [address] Control Cabinet Assembler: David Montez MD Comprehensive Metabolic Pane l w/ Reflex to on 09-05-2022 Albumin [Mass/Vol] 3.7 g/dL 3.5 - 5.2 g/dL [facility] Albumin/Globulin [Mass ratio] 1.2 {ratio} 1.0 - 2.5 [facility] ALP [Catalytic activity/Vol] 98 U/L 40 - 129 U/L [facility] ALT [Catalytic activity/Vol] 12 U/L 5 - 41 U/L [facility] Anion gap [Moles/Vol] 12 mmol/L 9 - 17 mmol/L [facility] AST [Catalytic activity/Vol] 13 U/L NINF - 40 U/L [facility] Bilirubin [Mass/Vol] 0.8 mg/dL 0.3 - 1 .2 mg/dL [facility] Calcium [Mass/Vol] 8.7 mg/dL 8.6 - 10. 4 mg/dL [facility] Chloride [Moles/Vol] 104 mmol/L 98 - 10 7 mmol/L [facility] CO2 [Moles/Vol] 25 mmol/L 20 - 31 mmol/L [facility] Creatinine [Mass/Vol] 0.85 mg/dL 0.70 - 1.20 mg/dL [facility] GFR/1.73 sq M.predicted MDRD (S/P/Bld) [Vol rate/Area] - PINF [facility] Comment on above: These results are not intended for use in patients <18 years of age. eGFR results are calculated without a race factor using the 2020 CKD-EPI equation. Careful clinical correlation is recommended, particularly when comparing to results calculated using previous equations. The CKD-EPI equation is less accurate in patients with extremes of muscle mass, extra-renal metabolism of creatine, excessive creatine ingestion, or following therapy that affects renal tubular secretion. Glucose [Mass/Vol] 94 mg/dL 70 - 99 mg/dL [facility] Interpretation and review of laboratory results Abnormal [facility] Potassium [Moles/Vol] 3.7 mmol/L 3.7 - 5.3 mmol/L [facility] Protein [Mass/Vol] 6.8 g/dL 6.4 - 8.3 g/dL [facility] Sodium [Moles/Vol] 141 mmol/L 135 - 144 mmol/L [facility] Urea nitrogen [Mass/Vol] 19 mg/dL 8 - 23 mg/dL [facility] Urea nitrogen/Creatinine [Mass ratio] 22 mg/mg High 9 - 20 [facility] EKG Rhythm Stripon 3 [facility] XR ABDOMEN (2 VIEWS)on 09-05 XR ABDOMEN (2 VIEWS) EXAMINATION: TWO XRAY VIEWS OF THE ABDOMEN 09/05/2022 5:20 am COMPARISON: 09/04/2022. HISTORY: ORDERING SYSTEM PROVIDED HISTORY: sbo TECHNOLOGIST PROVIDED HISTORY: sbo FINDINGS: The NG tube tip and side port are noted in the region of the gastric body. There is persistent distension of small bowel loops in the abdomen measuring up to 5.8 cm, compatible with small bowel obstruction. Degenerative changes are noted in the spine. Atelectasis is noted in the lung bases. IMPRESSION: 1. Persistent small bowel obstruction. Interpreted by: Gagan Rowe MD Signed by: Gagan Rowe MD 09/05/22 Final result Normal [facility] 1. Persistent small bowel obstruction. [facility] EXAMINATION: TWO XRAY VIEWS OF THE ABDOMEN 09/05/2022 5:20 am COMPARISON: 09/04/2022. HISTORY: ORDERING SYSTEM PROVIDED HISTORY: sbo TECHNOLOGIST PROVIDED HISTORY: sbo FINDINGS: The NG tube tip and side port are noted in the region of the gastric body. There is persistent distension of small bowel loops in the abdomen measuring up to 5.8 cm, compatible with small bowel obstruction. Degenerative changes are noted in the spine. Atelectasis is noted in the lung bases. [facility] Gagan Rowe MD - 09/05/2022 EXAMINATION: TWO XRAY VIEWS OF THE ABDOMEN 09/05/2022 5:20 am COMPARISON: 09/04/2022. HISTORY: ORDERING SYSTEM PROVIDED HISTORY: sbo TECHNOLOGIST PROVIDED HISTORY: sbo FINDINGS: The NG tube tip and side port are noted in the region of the gastric body. There is persistent distension of small bowel loops in the abdomen measuring up to 5.8 cm, compatible with small bowel obstruction. Degenerative changes are noted in the spine. Atelectasis is noted in the lung bases. IMPRESSION: 1. Persistent small bowel obstruction. [facility] Radiology Study observation (narrative) [facility] XR ABDOMEN (2 VIEWS)Ordered By: Gagan Rowe on 09-05-2022 [facility] Work Phone: CBC auto differentialon 07-0 Basophils (Bld) [#/Vol] 0.06 10*3/uL [facility] Basophils/100 WBC (Bld) 1 % 0 - 2 % [facility] Eosinophils (Bld) [#/Vol] 0.05 10*3/uL [facility] Eosinophils/100 WBC (Bld) 0 % Low 1 - 4 % [facility] Erythrocyte distribution width (RBC) [Ratio] 13.2 % 11.8 - 14.4 % [facility] Hematocrit (Bld) [Volume fraction] 33.4 % Low 40.7 - 50.3 % [facility] Hemoglobin (Bld) [Mass/Vol] 11.1 g/dL Low 13.0 - 17.0 g/dL [facility] Immature granulocytes (Bld) [#/Vol] 0.05 10*3/uL [facility] Immature granulocytes/100 WBC (Bld) 0 % 0 [facility] Interpretation and review of laboratory results Abnormal [facility] Lymphocytes/100 WBC (Bld) 13 % Low 24 - 43 % [facility] Lymphocytes/100 WBC (Bld) 1.71 % [facility] MCH (RBC) [Entitic mass] 32.7 pg 25.2 - 33.5 pg [facility] MCHC (RBC) [Mass/Vol] 33.2 g/dL 28.4 - 34.8 g/dL [facility] MCV (RBC) [Entitic vol] 98.5 fL 82.6 - 102.9 fL [facility] Monocytes/100 WBC (Bld) 7 % 3 - 12 % [facility] Monocytes/100 WBC (Bld) 0.89 % [facility] [facility] Neutrophils/100 WBC (Bld) 79 % High 36 - 65 % [facility] Nucleated RBC/100 WBC (Bld) [Ratio] 0.0 % 0.0 per 100 WBC [facility] Platelet mean volume (Bld) [Entitic vol] 9.5 fL 8.1 - 13.5 fL [facility] Platelets (Bld) [#/Vol] 170 10*3/uL [facility] RBC (Bld) [#/Vol] 3.39 10*6/uL Low 4.21 - 5.7 7 m/uL [facility] Segmented neutrophils/100 WBC (Bld) 10.07 % High [facility] WBC other (Bld) [#/Vol] 12.8 High [facility] CBC with Diffon 07-03-2023 Abs. Basophil 0.06 k/uL Normal 0.00-0.20 [facility] Comment on above: Performed By: #### YULIYA COUGHLIN, CDP #### [facility] [address] [place], [place] [phone] Control Cabinet Assembler: David Montez MD Abs.Imm.Granulocyte 0.05 k/uL Normal 0.00-0.30 [facility] Comment on above: Performed By: #### YULIYA COUGHLIN, CDP #### [facility] [address] [place], [place] [phone] Control Cabinet Assembler: David Montez MD Abs.Neutrophil (Seg) 10.07 k/uL High 1.50-8.10 [facility] Comment on above: Performed By: #### YULIYA COUGHLIN, CDP #### [address] [place], [facility]83 Control Cabinet Assembler: David Montez MD Basophils/100 WBC (Bld) 1 % Normal 0-2 [facility] Comment on above: Performed By: #### YULIYA COUGHLIN, CDP #### [address] [place], [place] [id number] Control Cabinet Assembler: David Montez MD Eosinophils (Bld) [#/Vol] 0.05 10*3/uL Normal 0.00-0.44 [facility] Comment on above: Performed By: #### YULIYA COUGHLIN, CDP #### [facility] [address] [place] [address] Dr. [place], [facility]83 Control Cabinet Assembler: David Montez MD Eosinophils/100 WBC (Bld) 0 % Low 1-4 [facility] Comment on above: Performed By: #### YULIYA COUGHLIN, CDP #### [facility] [address] [place] [address] Control Cabinet Assembler: David Montez MD Erythrocyte distribution width (RBC) [Ratio] 13.2 % Normal 11.8-14.4 [facility] Comment on above: Performed By: #### YULIYA COUGHLIN, CDP #### [facility] [address] [place] [address] [place] [address] Control Cabinet Assembler: David Montez MD Hematocrit (Bld) [Volume fraction] 33.4 % Low 40.7-50.3 [facility] Comment on above: Performed By: #### YULIYA COUGHLIN, CDP #### [facility] [address] [place] [address] Dr. [place], [facility]83 Control Cabinet Assembler: David Montez MD Hemoglobin (Bld) [Mass/Vol] 11.1 g/dL Low 13.0-17.0 [facility] Comment on above: Performed By: #### YULIYA COUGHLIN, CDP #### [address] [place] [address] Control Cabinet Assembler: David Montez MD Immature granulocytes/100 WBC (Bld) 0 % Normal 0 [facility] Comment on above: Performed By: #### YULIYA COUGHLIN, CDP #### [address] [place] [address] Control Cabinet Assembler: David Montez MD Lymphocytes (Bld) [#/Vol] 1.71 10*3/uL Normal 1.10-3.70 [facility] Comment on above: Performed By: #### YULIYA COUGHLIN, CDP #### [facility] [address] [place] [address] Dr. [place], [facility]83 Control Cabinet Assembler: David Montez MD Lymphocytes/100 WBC (Bld) 13 % Low 24-43 [facility] Comment on above: Performed By: #### YULIYA COUGHLIN, CDP #### [facility] [address] [place] [address] Control Cabinet Assembler: David Montez MD MCH (RBC) [Entitic mass] 32.7 pg Normal 25.2-33.5 [facility] Comment on above: Performed By: #### R YULIYA KENNEY, CDP #### [facility] [address] [place], [facility]83 Control Cabinet Assembler: David Montez MD MCHC (RBC) [Mass/Vol] 33.2 g/dL Normal 28.4-34.8 [facility] Comment on above: Performed By: #### Rick KENNEY IPF, CDP #### [facility] [address] [place], [place] [address] Control Cabinet Assembler: David Montez MD MCV (RBC) [Entitic vol] 98.5 fL Normal 82.6-102.9 [facility] Comment on above: Performed By: #### YULIYA COUGHLIN, CDP #### [address] [place], [facility]83 Control Cabinet Assembler: David Montez MD Monocytes (Bld) [#/Vol] 0.89 10*3/uL Normal 0.10-1.20 [facility] Comment on above: Performed By: #### YULIYA COUGHLIN, CDP #### [address] [place], [facility]83 Control Cabinet Assembler: David Montez MD Monocytes/100 WBC (Bld) 7 % Normal 3-12 [facility] Comment on above: Performed By: #### YULIYA COUGHLIN, CDP #### [address] [place], [facility]83 Control Cabinet Assembler: David Montez MD Neutrophil (Seg) 79 % High 36-65 [facility] Comment on above: Performed By: #### YULIYA COUGHLIN, CDP #### [address] [place] [address] Control Cabinet Assembler: David Montez MD NRBC Automated 0.0 per 100 WBC Normal 0.0 [facility] Comment on above: Performed By: #### R ANNE MARIE IPF, CDP #### [facility] [address] [place], [place] [phone] Control Cabinet Assembler: David Montez MD Platelet mean volume (Bld) [Entitic vol] 9.5 fL Normal 8.1-13.5 [facility] Comment on above: Performed By: #### YULIYA COUGHLIN, CDP #### [facility] [address] [place], [facility]83 Control Cabinet Assembler: David Montez MD Platelets (Bld) [#/Vol] 170 10*3/uL Normal 138-453 [facility] Comment on above: Performed By: #### YULIYA COUGHLIN, CDP #### [address] [place], [facility]83 Control Cabinet Assembler: David Montez MD RBC (Bld) [#/Vol] 3.39 10*6/uL Low 4.21-5.77 [facility] Comment on above: Performed By: #### YULIYA COUGHLIN, CDP #### [address] [place], [facility]83 Control Cabinet Assembler: David Montez MD WBC (Bld) [#/Vol] 12.8 10*3/uL High 3.5-11.3 [facility] Comment on above: Performed By: #### YULIYA COUGHLIN, CDP #### [address] [place], [facility]83 Control Cabinet Assembler: David Montez MD Comp Metabolic Pr/rfx MGon 0 7- Albumin [Mass/Vol] 3.7 g/dL Normal 3.5-5.2 [facility] Comment on above: Performed By: #### YULIYA COUGHLIN, CDP #### [facility] [address] [place], [place] [phone] Control Cabinet Assembler: David Montez MD Albumin/Glob Ratio 1.2 Normal 1.0-2.5 [facility] Comment on above: Performed By: #### R EJEC, IPF, CDP #### [facility] [address] [place], [place] [phone] Control Cabinet Assembler: David Montez MD Alkaline Phos 110 U/L Normal 40-129 [facility] Comment on above: Performed By: #### R EJEC, IPF, CDP #### [facility] [address] [place], [place] [phone] Control Cabinet Assembler: David Montez MD ALT [Catalytic activity/Vol] 13 U/L Normal 5-41 [facility] Comment on above: Performed By: #### R EJRELL, IPF, CDP #### [facility] [address] [place], [place] [phone] Control Cabinet Assembler: David Montez MD Anion gap [Moles/Vol] 11 mmol/L Normal 9-17 [facility] Comment on above: Performed By: #### R EJRELL, IPF, CDP #### [facility] [address] [place], [place] [phone] Control Cabinet Assembler: David Montez MD AST [Catalytic activity/Vol] 13 U/L Normal <40 [facility] Comment on above: Performed By: #### R EJEC, IPF, CDP #### [facility] [address] [place], [place] [phone] Control Cabinet Assembler: David Montez MD Bilirubin [Mass/Vol] 0.6 mg/dL Normal 0.3-1.2 [facility] Comment on above: Performed By: #### R EJEC, IPF, CDP #### [facility] [address] [place], [place] [phone] Control Cabinet Assembler: David Montez MD BUN/CRE Ratio 27 High 9-20 [facility] Comment on above: Performed By: #### R EJEC, IPF, CDP #### [facility] [address] [place], [place] [phone] Control Cabinet Assembler: David Montez MD Calcium [Mass/Vol] 8.8 mg/dL Normal 8.6-10.4 [facility] Comment on above: Performed By: #### YULIYA COUGHLIN, CDP #### [facility] [address] [place] [address] Control Cabinet Assembler: David Montez MD Chloride [Moles/Vol] 106 mmol/L Normal 98-107 [facility] Comment on above: Performed By: #### YULIYA COUGHLIN, CDP #### [facility] [address] [place] [address] Control Cabinet Assembler: David Montez MD CO2 [Moles/Vol] 26 mmol/L Normal 20-31 [facility] Comment on above: Performed By: #### YULIYA COUGHLIN, CDP #### [facility] [address] [place] [address] Control Cabinet Assembler: David Montez MD Creatinine [Mass/Vol] 0.79 mg/dL Normal 0.70-1.20 [facility] Comment on above: Performed By: #### YULIYA COUGHLIN, CDP #### [facility] [address] [place] [address] [place] [address] Control Cabinet Assembler: David Montez MD GFR/1.73 sq M.predicted among non-blacks MDRD (S/P/Bld) [Vol rate/Area] mL/min/{1.73_m2} Normal >60 [facility] Comment on above: Result Comment: These results are not intended for use in patients <18 years of age. eGFR results are calculated without a race factor using the 2020 CKD-EPI equation. Careful clinical correlation is recommended, particularly when comparing to results calculated using previous equations. The CKD-EPI equation is less accurate in patients with extremes of muscle mass, extra-renal metabolism of creatine, excessive creatine ingestion, or following therapy that affects renal tubular secretion. Performed By: #### YULIYA COUGHLIN, CDP #### [facility] [address] [place], [place] [phone] Control Cabinet Assembler: David Montez MD Glucose [Mass/Vol] 90 mg/dL Normal 70-99 [facility] Comment on above: Performed By: #### YULIYA COUGHLIN, CDP #### [facility] [address] [place], [place] [phone] Control Cabinet Assembler: David Montez MD Potassium [Moles/Vol] 3.8 mmol/L Normal 3.7-5.3 [facility] Comment on above: Performed By: #### YULIYA COUGHLIN, CDP #### [facility] [address] [place], [place] [phone] Control Cabinet Assembler: David Montez MD Protein [Mass/Vol] 6.9 g/dL Normal 6.4-8.3 [facility] Comment on above: Performed By: #### YULIYA COUGHLIN, CDP #### [facility] [address] [place], [place] [phone] Control Cabinet Assembler: David Montez MD Sodium [Moles/Vol] 143 mmol/L Normal 135-144 [facility] Comment on above: Performed By: #### YULIYA COUGHLIN, CDP #### [facility] [address] [place], [place] [phone] Control Cabinet Assembler: David Montez MD Urea nitrogen [Mass/Vol] 21 mg/dL Normal 8-23 [facility] Comment on above: Performed By: #### YULIYA COUGHLIN, CDP #### [facility] [address] [place], [place] [phone] Control Cabinet Assembler: David Montez MD Comprehensive Metabolic Pane l w/ Reflex to MGon 09-04-2022 Albumin [Mass/Vol] 3.7 g/dL 3.5 - 5.2 g/dL [facility] Albumin/Globulin [Mass ratio] 1.2 {ratio} 1.0 - 2.5 [facility] ALP [Catalytic activity/Vol] 110 U/L 40 - 129 U/L [facility] ALT [Catalytic activity/Vol] 13 U/L 5 - 41 U/L [facility] Anion gap [Moles/Vol] 11 mmol/L 9 - 17 mmol/L [facility] AST [Catalytic activity/Vol] 13 U/L NINF - 40 U/L [facility] Bilirubin [Mass/Vol] 0.6 mg/dL 0.3 - 1 .2 mg/dL [facility] Calcium [Mass/Vol] 8.8 mg/dL 8.6 - 10. 4 mg/dL [facility] Chloride [Moles/Vol] 106 mmol/L 98 - 10 7 mmol/L [facility] CO2 [Moles/Vol] 26 mmol/L 20 - 31 mmol/L [facility] Creatinine [Mass/Vol] 0.79 mg/dL 0.70 - 1.20 mg/dL [facility] GFR/1.73 sq M.predicted MDRD (S/P/Bld) [Vol rate/Area] - PINF [facility] Comment on above: These results are not intended for use in patients <18 years of age. eGFR results are calculated without a race factor using the 2020 CKD-EPI equation. Careful clinical correlation is recommended, particularly when comparing to results calculated using previous equations. The CKD-EPI equation is less accurate in patients with extremes of muscle mass, extra-renal metabolism of creatine, excessive creatine ingestion, or following therapy that affects renal tubular secretion. Glucose [Mass/Vol] 90 mg/dL 70 - 99 mg/dL [facility] Interpretation and review of laboratory results Abnormal [facility] Potassium [Moles/Vol] 3.8 mmol/L 3.7 - 5.3 mmol/L [facility] Protein [Mass/Vol] 6.9 g/dL 6.4 - 8.3 g/dL [facility] Sodium [Moles/Vol] 143 mmol/L 135 - 144 mmol/L [facility] Urea nitrogen [Mass/Vol] 21 mg/dL 8 - 23 mg/dL [facility] Urea nitrogen/Creatinine [Mass ratio] 27 mg/mg High 9 - 20 [facility] EKG Rhythm Stripon [facility] ml [facility] XR ABDOMEN (2 VIEWS)on 09-04 XR ABDOMEN (2 VIEWS) EXAMINATION: TWO XRAY VIEWS OF THE ABDOMEN 09/04/2022 10:22 am COMPARISON: 03 September 2021 HISTORY: ORDERING SYSTEM PROVIDED HISTORY: sbo TECHNOLOGIST PROVIDED HISTORY: sbo FINDINGS: AP portable view of the abdomen time stamped at 1029 hours demonstrates an intestinal tube terminating in the stomach, unchanged. Gaseous distension of small bowel and colon remains without significant interval change. No organomegaly or free air. IMPRESSION: No change in gaseous distension in the intestinal tract. NG tube terminates in the stomach. Interpreted by: Abbey Ochoa MD Signed by: Abbey Ochoa MD 09/04/22 Final result Normal [facility] No change in gaseous distension in the intestinal tract. NG tube terminates in the stomach. [facility] RIS CONSOLIDATED EXAMINATION: TWO XRAY VIEWS OF THE ABDOMEN 09/04/2022 10:22 am COMPARISON: 03 September 2021 HISTORY: ORDERING SYSTEM PROVIDED HISTORY: sbo TECHNOLOGIST PROVIDED HISTORY: sbo FINDINGS: AP portable view of the abdomen time stamped at 1029 hours demonstrates an intestinal tube terminating in the stomach, unchanged. Gaseous distension of small bowel and colon remains without significant interval change. No organomegaly or free air. [facility] RIS CONSOLIDATED Abbey Ochoa MD - 09/04/2022 EXAMINATION: TWO XRAY VIEWS OF THE ABDOMEN 09/04/2022 10:22 am COMPARISON: 03 September 2021 HISTORY: ORDERING SYSTEM PROVIDED HISTORY: sbo TECHNOLOGIST PROVIDED HISTORY: sbo FINDINGS: AP portable view of the abdomen time stamped at 1029 hours demonstrates an intestinal tube terminating in the stomach, unchanged. Gaseous distension of small bowel and colon remains without significant interval change. No organomegaly or free air. IMPRESSION: No change in gaseous distension in the intestinal tract. NG tube terminates in the stomach. [facility] Radiology Study observation (narrative) [facility] XR ABDOMEN FOR NG/OG/NE TUBE PLACEMENTon 09-04-2022 XR ABDOMEN FOR NG/OG/NE TUBE PLACEMENT EXAMINATION: ONE SUPINE XRAY VIEW(S) OF THE ABDOMEN 09/03/2022 5:20 pm COMPARISON: 09/03/2022 HISTORY: ORDERING SYSTEM PROVIDED HISTORY: Confirmation of course of NG/OG/NE tube and location of tip of tube TECHNOLOGIST PROVIDED HISTORY: Confirmation of course of NG/OG/NE tube and location of tip of tube Portable?->Yes FINDINGS: Enteric tube is satisfactory in position with distal tip and side hole overlying proximal stomach. There is gas distention of the stomach and visualized upper abdominal bowel loops. IMPRESSION: Satisfactory positioning of the enteric tube with distal tip and side hole overlying proximal stomach. Interpreted by: Kritsan Bee DO Signed by: Kristan Bee DO 09/03/22 Final result Normal [facility] CBC auto differentialon 07-0 Basophils (Bld) [#/Vol] 0.04 10*3/uL [facility] Basophils/100 WBC (Bld) 0 % 0 - 2 % [facility] Eosinophils (Bld) [#/Vol] 0.09 10*3/uL [facility] Eosinophils/100 WBC (Bld) 1 % 1 - 4 % [facility] Erythrocyte distribution width (RBC) [Ratio] 13.2 % 11.8 - 14.4 % [facility] Hematocrit (Bld) [Volume fraction] 36.8 % Low 40.7 - 50.3 % [facility] Hemoglobin (Bld) [Mass/Vol] 12.1 g/dL Low 13.0 - 17.0 g/dL [facility] Immature granulocytes (Bld) [#/Vol] 0.03 10*3/uL [facility] Immature granulocytes/100 WBC (Bld) 0 % 0 [facility] Interpretation and review of laboratory results Abnormal [facility] Lymphocytes/100 WBC (Bld) 20 % Low 24 - 43 % [facility] Lymphocytes/100 WBC (Bld) 2.31 % [facility] MCH (RBC) [Entitic mass] 32.4 pg 25.2 - 33.5 pg [facility] MCHC (RBC) [Mass/Vol] 32.9 g/dL 28.4 - 34.8 g/dL [facility] MCV (RBC) [Entitic vol] 98.4 fL 82.6 - 102.9 fL [facility] Monocytes/100 WBC (Bld) 7 % 3 - 12 % [facility] Monocytes/100 WBC (Bld) 0.83 % [facility] Neutrophils/100 WBC (Bld) 72 % High 36 - 65 % [facility] Nucleated RBC/100 WBC (Bld) [Ratio] 0.0 % 0.0 per 100 WBC [facility] Platelet mean volume (Bld) [Entitic vol] 9.5 fL 8.1 - 13.5 fL [facility] Platelets (Bld) [#/Vol] 206 10*3/uL [facility] RBC (Bld) [#/Vol] 3.74 10*6/uL Low 4.21 - 5.7 7 m/uL [facility] Segmented neutrophils/100 WBC (Bld) 8.20 % High [facility] WBC other (Bld) [#/Vol] 11.5 High [facility] CBC with Diffon 09-03-2022 Abs. Basophil 0.04 k/uL Normal 0.00-0.20 [facility] Comment on above: Performed By: #### YULIYA COUGHLIN, CDP #### [facility] [address] [place] [address] [place] [address] Control Cabinet Assembler: David Montez MD Abs.Imm.Granulocyte 0.03 k/uL Normal 0.00-0.30 [facility] Comment on above: Performed By: #### YULIYA COUGHLIN, CDP #### [facility] [address] [place] [address] Control Cabinet Assembler: David Montez MD Abs.Neutrophil (Seg) 8.20 k/uL High 1.50-8.10 [facility] Comment on above: Performed By: #### YULIYA COUGHLIN, CDP #### [facility] [address] [place] [address] [place] [address] Control Cabinet Assembler: David Montez MD Basophils/100 WBC (Bld) 0 % Normal 0-2 [facility] Comment on above: Performed By: #### R YULIYA KENNEY, CDP #### [facility] [address] [place] [address] Control Cabinet Assembler: David Montez MD Eosinophils (Bld) [#/Vol] 0.09 10*3/uL Normal 0.00-0.44 [facility] Comment on above: Performed By: #### R YULIYA KENNEY, CDP #### [address] [place] [address] Control Cabinet Assembler: David Montez MD Eosinophils/100 WBC (Bld) 1 % Normal 1-4 [facility] Comment on above: Performed By: #### YULIYA COUGHLIN, CDP #### [address] [place] [address] Control Cabinet Assembler: David Montez MD Erythrocyte distribution width (RBC) [Ratio] 13.2 % Normal 11.8-14.4 [facility] Comment on above: Performed By: #### YULIYA COUGHLIN, CDP #### [address] [place] [address] Control Cabinet Assembler: David Montez MD Hematocrit (Bld) [Volume fraction] 36.8 % Low 40.7-50.3 [facility] Comment on above: Performed By: #### R YULIYA KENNEY, CDP #### [address] [place] [address] Control Cabinet Assembler: David Montez MD Hemoglobin (Bld) [Mass/Vol] 12.1 g/dL Low 13.0-17.0 [facility] Comment on above: Performed By: #### YULIYA COUGHLIN, CDP #### [address] [place] [address] Control Cabinet Assembler: David Montez MD Immature granulocytes/100 WBC (Bld) 0 % Normal 0 [facility] Comment on above: Performed By: #### YULIYA COUGHLIN, CDP #### [facility] [address] [place], [place] [phone] Control Cabinet Assembler: David Montez MD Lymphocytes (Bld) [#/Vol] 2.31 10*3/uL Normal 1.10-3.70 [facility] Comment on above: Performed By: #### YULIYA COUGHLIN, CDP #### [facility] [address] [place], [place] [phone] Control Cabinet Assembler: David Montez MD Lymphocytes/100 WBC (Bld) 20 % Low 24-43 [facility] Comment on above: Performed By: #### YULIYA COUGHLIN, CDP #### [facility] [address] [place], [facility] Control Cabinet Assembler: David Montez MD MCH (RBC) [Entitic mass] 32.4 pg Normal 25.2-33.5 [facility] Comment on above: Performed By: #### YULIYA COUGHLIN, CDP #### [address] [place], [place] [phone] Control Cabinet Assembler: David Montez MD MCHC (RBC) [Mass/Vol] 32.9 g/dL Normal 28.4-34.8 [facility] Comment on above: Performed By: #### YULIYA COUGHLIN, CDP #### [facility] [address] [place], [place] [phone] Control Cabinet Assembler: David Montez MD MCV (RBC) [Entitic vol] 98.4 fL Normal 82.6-102.9 [facility] Comment on above: Performed By: #### YULIYA COUGHLIN, CDP #### [facility] [address] [place] [address] Control Cabinet Assembler: David Montez MD Monocytes (Bld) [#/Vol] 0.83 10*3/uL Normal 0.10-1.20 [facility] Comment on above: Performed By: #### YULIYA COUGHLIN, CDP #### [facility] [address] [place], [place] [phone] Control Cabinet Assembler: David Montez MD Monocytes/100 WBC (Bld) 7 % Normal 3-12 [facility] Comment on above: Performed By: #### YULIYA COUGHLIN, CDP #### [facility] [address] [place], [place] [phone] Control Cabinet Assembler: David Montez MD Neutrophil (Seg) 72 % High 36-65 [facility] Comment on above: Performed By: #### YULIYA COUGHLIN, CDP #### [facility] [address] [place], [place] [phone] Control Cabinet Assembler: David Montez MD NRBC Automated 0.0 per 100 WBC Normal 0.0 [facility] Comment on above: Performed By: #### YULIYA COUGHLIN, CDP #### [facility] [address] [place], [place] [phone] Control Cabinet Assembler: David Montez MD Platelet mean volume (Bld) [Entitic vol] 9.5 fL Normal 8.1-13.5 [facility] Comment on above: Performed By: #### YULIYA COUGHLIN, CDP #### [facility] [address] [place] [address] Control Cabinet Assembler: David Montez MD Platelets (Bld) [#/Vol] 206 10*3/uL Normal 138-453 [facility] Comment on above: Performed By: #### YULIYA COUGHLIN, CDP #### [facility] [address] [place] [address] Control Cabinet Assembler: David Montez MD RBC (Bld) [#/Vol] 3.74 10*6/uL Low 4.21-5.77 [facility] Comment on above: Performed By: #### R YULIYA KENNEY, CDP #### [facility] [address] [place] [address] Control Cabinet Assembler: David Montez MD WBC (Bld) [#/Vol] 11.5 10*3/uL High 3.5-11.3 [facility] Comment on above: Performed By: #### R YULIYA KENNEY, CDP #### [facility] [address] [place], [place] [id number] Control Cabinet Assembler: David Montez MD CT ABDOMEN PELVIS W IV CONTR Santosh 09-03-2022 CT ABDOMEN PELVIS W IV CONTRAST EXAMINATION: CT OF THE ABDOMEN AND PELVIS WITH CONTRAST 09/02/2022 8:28 pm TECHNIQUE: CT of the abdomen and pelvis was performed with the administration of intravenous contrast. Multiplanar reformatted images are provided for review. Automated exposure control, iterative reconstruction, and/or weight based adjustment of the mA/kV was utilized to reduce the radiation dose to as low as reasonably achievable. COMPARISON: CT abdomen and pelvis dated 06/21/2022. HISTORY: ORDERING SYSTEM PROVIDED HISTORY: Vomiting history of SBO TECHNOLOGIST PROVIDED HISTORY: Vomiting history of SBO Decision Support Exception - unselect if not a suspected or confirmed emergency medical condition->Emergency Medical Condition (MA) FINDINGS: Lower Chest: There is mild atelectasis at the visualized lung bases. Organs: The liver, spleen, pancreas, and adrenal glands are unremarkable. Gallbladder is unremarkable. There is normal enhancement in the right kidney. No right hydronephrosis or perinephric inflammation. There is normal enhancement in the left kidney. 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 There is also a peripherally calcified cyst at the lower pole of the left kidney, measuring 1.8 cm. Both of these are unchanged from previous imaging. No left hydronephrosis or perinephric inflammation. GI/Bowel: There is prominent distention of the stomach with air-fluid level. Multiple small bowel loops are also distended with air-fluid levels, measuring up to 5.3 cm in diameter. Nonspecific transition point is suspected in the right lower quadrant, similar in location to the previous study. Distal small bowel loops are nondistended. Small bowel anastomosis noted in the mid left abdomen. No pneumatosis. No free air or ascites. No focal pericolonic inflammation. Appendix is not identified. Pelvis: Urinary bladder is mildly distended but otherwise unremarkable. Peritoneum/Retroperi toneum: The abdominal aorta is normal in caliber. There is no retroperitoneal or mesenteric lymphadenopathy. Bones/Soft Tissues: There is no acute or suspicious osseous abnormality. Visualized superficial soft tissues are within normal limits. IMPRESSION: Findings compatible with distal small bowel obstruction with suspected transition point in the right lower quadrant. No pneumatosis or free air. Interpreted by: Kristan eBe DO Signed by: Kristan Bee DO 09/03/22 Final result Normal [facility] CT ABDOMEN PELVIS W IV CONTR AST Additional Contrast? Noneon 09-03-2022 Findings compatible with distal small bowel obstruction with suspected transition point in the right lower quadrant. No pneumatosis or free air. [facility] RIS CONSOLIDATED EXAMINATION: CT OF THE ABDOMEN AND PELVIS WITH CONTRAST 09/02/2022 8:28 pm TECHNIQUE: CT of the abdomen and pelvis was performed with the administration of intravenous contrast. Multiplanar reformatted images are provided for review. Automated exposure control, iterative reconstruction, and/or weight based adjustment of the mA/kV was utilized to reduce the radiation dose to as low as reasonably achievable. COMPARISON: CT abdomen and pelvis dated 06/21/2022. HISTORY: ORDERING SYSTEM PROVIDED HISTORY: Vomiting history of SBO TECHNOLOGIST PROVIDED HISTORY: Vomiting history of SBO Decision Support Exception - unselect if not a suspected or confirmed emergency medical condition->Emergency Medical Condition (MA) FINDINGS: Lower Chest: There is mild atelectasis at the visualized lung bases. Organs: The liver, spleen, pancreas, and adrenal glands are unremarkable. Gallbladder is unremarkable. There is normal enhancement in the right kidney. No right hydronephrosis or perinephric inflammation. There is normal enhancement in the left kidney. 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 There is also a peripherally calcified cyst at the lower pole of the left kidney, measuring 1.8 cm. Both of these are unchanged from previous imaging. No left hydronephrosis or perinephric inflammation. GI/Bowel: There is prominent distention of the stomach with air-fluid level. Multiple small bowel loops are also distended with air-fluid levels, measuring up to 5.3 cm in diameter. Nonspecific transition point is suspected in the right lower quadrant, similar in location to the previous study. Distal small bowel loops are nondistended. Small bowel anastomosis noted in the mid left abdomen. No pneumatosis. No free air or ascites. No focal pericolonic inflammation. Appendix is not identified. Pelvis: Urinary bladder is mildly distended but otherwise unremarkable. Peritoneum/Retroperi toneum: The abdominal aorta is normal in caliber. There is no retroperitoneal or mesenteric lymphadenopathy. Bones/Soft Tissues: There is no acute or suspicious osseous abnormality. Visualized superficial soft tissues are within normal limits. [facility] RIS CONSOLIDATED Kristan Bee, DO - 09/03/2022 EXAMINATION: CT OF THE ABDOMEN AND PELVIS WITH CONTRAST 09/02/2022 8:28 pm TECHNIQUE: CT of the abdomen and pelvis was performed with the administration of intravenous contrast. Multiplanar reformatted images are provided for review. Automated exposure control, iterative reconstruction, and/or weight based adjustment of the mA/kV was utilized to reduce the radiation dose to as low as reasonably achievable. COMPARISON: CT abdomen and pelvis dated 06/21/2022. HISTORY: ORDERING SYSTEM PROVIDED HISTORY: Vomiting history of SBO TECHNOLOGIST PROVIDED HISTORY: Vomiting history of SBO Decision Support Exception - unselect if not a suspected or confirmed emergency medical condition->Emergency Medical Condition (MA) FINDINGS: Lower Chest: There is mild atelectasis at the visualized lung bases. Organs: The liver, spleen, pancreas, and adrenal glands are unremarkable. Gallbladder is unremarkable. There is normal enhancement in the right kidney. No right hydronephrosis or perinephric inflammation. There is normal enhancement in the left kidney. 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 There is also a peripherally calcified cyst at the lower pole of the left kidney, measuring 1.8 cm. Both of these are unchanged from previous imaging. No left hydronephrosis or perinephric inflammation. GI/Bowel: There is prominent distention of the stomach with air-fluid level. Multiple small bowel loops are also distended with air-fluid levels, measuring up to 5.3 cm in diameter. Nonspecific transition point is suspected in the right lower quadrant, similar in location to the previous study. Distal small bowel loops are nondistended. Small bowel anastomosis noted in the mid left abdomen. No pneumatosis. No free air or ascites. No focal pericolonic inflammation. Appendix is not identified. Pelvis: Urinary bladder is mildly distended but otherwise unremarkable. Peritoneum/Retroperi toneum: The abdominal aorta is normal in caliber. There is no retroperitoneal or mesenteric lymphadenopathy. Bones/Soft Tissues: There is no acute or suspicious osseous abnormality. Visualized superficial soft tissues are within normal limits. IMPRESSION: Findings compatible with distal small bowel obstruction with suspected transition point in the right lower quadrant. No pneumatosis or free air. [facility] CT ABDOMEN PELVIS W IV CONTR AST Additional Contrast? NoneOrdered By: Kristan Bee on 09-03-2022 [facility] Work Phone: Comp Metabolic Pr/rfx MGon 0 09-03-2022 Potassium [Moles/Vol] 3.2 mmol/L Low 3.7-5.3 [facility] Comment on above: Performed By: #### YULIYA COUGHLIN, CDP #### [facility] [address] [place] [address] [place] [address] Control Cabinet Assembler: David Montez MD Albumin [Mass/Vol] 3.9 g/dL Normal 3.5-5.2 [facility] Comment on above: Performed By: #### YULIYA COUGHLIN, CDP #### [facility] [address] [place] [address] Control Cabinet Assembler: David Montez MD Albumin/Glob Ratio 1.2 Normal 1.0-2.5 [facility] Comment on above: Performed By: #### YULIYA COUGHLIN, CDP #### [facility] [address] [place] [address] Control Cabinet Assembler: David Montez MD Alkaline Phos 124 U/L Normal 40-129 [facility] Comment on above: Performed By: #### R EJEC, IPF, CDP #### [facility] [address] [place], [place] [id number] Control Cabinet Assembler: David Montez MD ALT [Catalytic activity/Vol] 19 U/L Normal 5-41 [facility] Comment on above: Performed By: #### R EJEC, IPF, CDP #### [facility] [address] [place], [place] [id number] Control Cabinet Assembler: David Montez MD Anion gap [Moles/Vol] 12 mmol/L Normal 9-17 [facility] [place] Comment on above: Performed By: #### R EJEC, IPF, CDP #### [address] [place], [place] [id number] Control Cabinet Assembler: David Montez MD AST [Catalytic activity/Vol] 17 U/L Normal <40 [facility] Comment on above: Performed By: #### R EJEC, IPF, CDP #### [facility] [address] [place], [place] [id number] Control Cabinet Assembler: David Montez MD Bilirubin [Mass/Vol] 0.4 mg/dL Normal 0.3-1.2 [facility] Comment on above: Performed By: #### R ANNE MARIE, IPF, CDP #### [facility] [address] [place], [facility] Control Cabinet Assembler: David Montez MD BUN/CRE Ratio 33 High 9-20 [facility] Comment on above: Performed By: #### R EJEC, IPF, CDP #### [facility] [address] [place], [place] [id number] Control Cabinet Assembler: David Montez MD Calcium [Mass/Vol] 9.3 mg/dL Normal 8.6-10.4 [facility] Comment on above: Performed By: #### R EJEC, IPF, CDP #### [facility] [address] [place], [place] [id number] Control Cabinet Assembler: David Montez MD Chloride [Moles/Vol] 102 mmol/L Normal 98-107 [facility] Comment on above: Performed By: #### YULIYA COUGHLIN, CDP #### [facility] [address] [place], [place] [id number] Control Cabinet Assembler: David Montez MD CO2 [Moles/Vol] 31 mmol/L Normal 20-31 [facility] Comment on above: Performed By: #### YULIYA COUGHLIN, CDP #### [facility] [address] [place] [address] Control Cabinet Assembler: David Montez MD Creatinine [Mass/Vol] 0.83 mg/dL Normal 0.70-1.20 [facility] Comment on above: Performed By: #### YULIYA COUGHLIN, CDP #### [facility] [address] [place], [facility] Control Cabinet Assembler: David Montez MD GFR/1.73 sq M.predicted among non-blacks MDRD (S/P/Bld) [Vol rate/Area] mL/min/{1.73_m2} Normal >60 [facility] Comment on above: Result Comment: These results are not intended for use in patients <18 years of age. eGFR results are calculated without a race factor using the 2020 CKD-EPI equation. Careful clinical correlation is recommended, particularly when comparing to results calculated using previous equations. The CKD-EPI equation is less accurate in patients with extremes of muscle mass, extra-renal metabolism of creatine, excessive creatine ingestion, or following therapy that affects renal tubular secretion. Performed By: #### YULIYA COUGHLIN, CDP #### [facility] [address] [place] [address] Control Cabinet Assembler: David Montez MD Glucose [Mass/Vol] 103 mg/dL High 70-99 [facility] Comment on above: Performed By: #### YULIYA COUGHLIN, CDP #### [facility] [address] [place] [address] Control Cabinet Assembler: David Montez MD Protein [Mass/Vol] 7.2 g/dL Normal 6.4-8.3 [facility] Comment on above: Performed By: #### Rick KENNEY IPF, CDP #### [facility] [address] [place] [address] Control Cabinet Assembler: David Montez MD Sodium [Moles/Vol] 145 mmol/L High 135-144 [facility] Comment on above: Performed By: #### YULIYA COUGHLIN, CDP #### [facility] [address] [place] [address] Control Cabinet Assembler: David Montez MD Urea nitrogen [Mass/Vol] 27 mg/dL High 8-23 [facility] Comment on above: Performed By: #### YULIYA COUGHLIN, CDP #### [facility] [address] [place] [address] Control Cabinet Assembler: David Montez MD Comprehensive Metabolic Pane l w/ Reflex to MGon 09-03-2022 Albumin [Mass/Vol] 3.9 g/dL 3.5 - 5.2 g/dL [facility] Albumin/Globulin [Mass ratio] 1.2 {ratio} 1.0 - 2.5 [facility] ALP [Catalytic activity/Vol] 124 U/L 40 - 129 U/L [facility] ALT [Catalytic activity/Vol] 19 U/L 5 - 41 U/L [facility] Anion gap [Moles/Vol] 12 mmol/L 9 - 17 mmol/L [facility] AST [Catalytic activity/Vol] 17 U/L NINF - 40 U/L [facility] Bilirubin [Mass/Vol] 0.4 mg/dL 0.3 - 1 .2 mg/dL [facility] Calcium [Mass/Vol] 9.3 mg/dL 8.6 - 10. 4 mg/dL [facility] Chloride [Moles/Vol] 102 mmol/L 98 - 10 7 mmol/L [facility] CO2 [Moles/Vol] 31 mmol/L 20 - 31 mmol/L [facility] Creatinine [Mass/Vol] 0.83 mg/dL 0.70 - 1.20 mg/dL [facility] GFR/1.73 sq M.predicted MDRD (S/P/Bld) [Vol rate/Area] - PINF [facility] Comment on above: These results are not intended for use in patients <18 years of age. eGFR results are calculated without a race factor using the 2020 CKD-EPI equation. Careful clinical correlation is recommended, particularly when comparing to results calculated using previous equations. The CKD-EPI equation is less accurate in patients with extremes of muscle mass, extra-renal metabolism of creatine, excessive creatine ingestion, or following therapy that affects renal tubular secretion. Glucose [Mass/Vol] 103 mg/dL High 70 - 99 mg/dL [facility] Interpretation and review of laboratory results Abnormal [facility] Potassium [Moles/Vol] 3.2 mmol/L Low 3.7 - 5.3 mmol/L [facility] Protein [Mass/Vol] 7.2 g/dL 6.4 - 8.3 g/dL [facility] Sodium [Moles/Vol] 145 mmol/L High 135 - 144 mmol/L [facility] Urea nitrogen [Mass/Vol] 27 mg/dL High 8 - 23 mg/dL [facility] Urea nitrogen/Creatinine [Mass ratio] 33 mg/mg High 9 - 20 [facility] EKG Rhythm Stripon 3 [facility] Magnesiumon 09-03-2022 Magnesium [Mass/Vol] 1.7 mg/dL Normal 1.6-2.6 [facility] Comment on above: Performed By: #### R EJEC, IPF, CDP #### [facility] [address] [place] [address] Control Cabinet Assembler: David Montez MD Magnesium [Mass/Vol] 1.7 mg/dL 1.6 - 2 .6 mg/dL [facility] XR ABDOMEN (KUB) (SINGLE AP VIEW)on 09-03-2022 XR ABDOMEN (KUB) (SINGLE AP VIEW) EXAMINATION: ONE SUPINE XRAY VIEW(S) OF THE ABDOMEN 09/03/2022 8:31 am COMPARISON: 02 September 2022 HISTORY: ORDERING SYSTEM PROVIDED HISTORY: comparison study, abd pain, SBO, portable TECHNOLOGIST PROVIDED HISTORY: comparison study, abd pain, SBO, portable FINDINGS: AP portable view of the abdomen time stamped at 825 hours demonstrates overlying monitoring electrodes and an intestinal tube terminating in the body of the stomach. Diffuse gaseous distension of both small and large bowel loops is noted with preferential distension of the small bowel compared to the colon consistent with small-bowel obstruction. Degree of distension is similar to prior exam. No organomegaly or free air is noted. IMPRESSION: Preferential distention of small-bowel loops compatible with partial small bowel obstruction, degree of distention unchanged from prior examination. Contrast material incidentally noted in the bladder nodule from prior CT. RECOMMENDATION: Continued radiographic monitoring. Interpreted by: Abbey Ochoa MD Signed by: Abbey Ochoa MD 09/03/22 Final result Normal [facility] Preferential distention of small-bowel loops compatible with partial small bowel obstruction, degree of distention unchanged from prior examination. Contrast material incidentally noted in the bladder nodule from prior CT. RECOMMENDATION: Continued radiographic monitoring. [facility] CONSOLIDATED EXAMINATION: ONE SUPINE XRAY VIEW(S) OF THE ABDOMEN 09/03/2022 8:31 am COMPARISON: 02 September 2022 HISTORY: ORDERING SYSTEM PROVIDED HISTORY: comparison study, abd pain, SBO, portable TECHNOLOGIST PROVIDED HISTORY: comparison study, abd pain, SBO, portable FINDINGS: AP portable view of the abdomen time stamped at 825 hours demonstrates overlying monitoring electrodes and an intestinal tube terminating in the body of the stomach. Diffuse gaseous distension of both small and large bowel loops is noted with preferential distension of the small bowel compared to the colon consistent with small-bowel obstruction. Degree of distension is similar to prior exam. No organomegaly or free air is noted. [facility] CONSOLIDATED Abbey Ochoa MD - 09/03/2022 EXAMINATION: ONE SUPINE XRAY VIEW(S) OF THE ABDOMEN 09/03/2022 8:31 am COMPARISON: 02 September 2022 HISTORY: ORDERING SYSTEM PROVIDED HISTORY: comparison study, abd pain, SBO, portable TECHNOLOGIST PROVIDED HISTORY: comparison study, abd pain, SBO, portable FINDINGS: AP portable view of the abdomen time stamped at 825 hours demonstrates overlying monitoring electrodes and an intestinal tube terminating in the body of the stomach. Diffuse gaseous distension of both small and large bowel loops is noted with preferential distension of the small bowel compared to the colon consistent with small-bowel obstruction. Degree of distension is similar to prior exam. No organomegaly or free air is noted. IMPRESSION: Preferential distention of small-bowel loops compatible with partial small bowel obstruction, degree of distention unchanged from prior examination. Contrast material incidentally noted in the bladder nodule from prior CT. RECOMMENDATION: Continued radiographic monitoring. [facility] [employer] [facility] Radiology Study observation (narrative) [facility] [employer] [facility] XR ABDOMEN (KUB) (SINGLE AP VIEW)Ordered By: Abbey Ochoa on 09-03-2022 [facility] [place] [facility] Work Phone: XR ABDOMEN FOR NG/OG/NE TUBE PLACEMENTon 09-03-2022 Satisfactory positioning of the enteric tube with distal tip and side hole overlying proximal stomach. PN RIS CONSOLIDATED EXAMINATION: ONE SUPINE XRAY VIEW(S) OF THE ABDOMEN 09/03/2022 5:20 pm COMPARISON: 09/03/2022 HISTORY: ORDERING SYSTEM PROVIDED HISTORY: Confirmation of course of NG/OG/NE tube and location of tip of tube TECHNOLOGIST PROVIDED HISTORY: Confirmation of course of NG/OG/NE tube and location of tip of tube Portable?->Yes FINDINGS: Enteric tube is satisfactory in position with distal tip and side hole overlying proximal stomach. There is gas distention of the stomach and visualized upper abdominal bowel loops. [facility] RIS CONSOLIDATED Kristan Bee DO - 09/03/2022 EXAMINATION: ONE SUPINE XRAY VIEW(S) OF THE ABDOMEN 09/03/2022 5:20 pm COMPARISON: 09/03/2022 HISTORY: ORDERING SYSTEM PROVIDED HISTORY: Confirmation of course of NG/OG/NE tube and location of tip of tube TECHNOLOGIST PROVIDED HISTORY: Confirmation of course of NG/OG/NE tube and location of tip of tube Portable?->Yes FINDINGS: Enteric tube is satisfactory in position with distal tip and side hole overlying proximal stomach. There is gas distention of the stomach and visualized upper abdominal bowel loops. IMPRESSION: Satisfactory positioning of the enteric tube with distal tip and side hole overlying proximal stomach. [facility] Radiology Study observation (narrative) [facility] XR ABDOMEN FOR NG/OG/NE TUBE PLACEMENT EXAMINATION: ONE SUPINE XRAY VIEW(S) OF THE ABDOMEN 09/02/2022 9:44 pm COMPARISON: CT abdomen and pelvis dated 09/02/2022. HISTORY: ORDERING SYSTEM PROVIDED HISTORY: KUB placement TECHNOLOGIST PROVIDED HISTORY: KUB placement Portable?->Yes FINDINGS: Enteric tube has been placed. Sidehole is in the proximal stomach. Distal tip is in the mid stomach. There is persistent gas distention of the stomach and visualized upper abdominal small bowel loops. IMPRESSION: Satisfactory position of the enteric tube. Interpreted by: Kristan Bee DO Signed by: Kristan Bee DO 09/03/22 Final result Normal [facility] Satisfactory position of the enteric tube. [facility] RIS CONSOLIDATED EXAMINATION: ONE SUPINE XRAY VIEW(S) OF THE ABDOMEN 09/02/2022 9:44 pm COMPARISON: CT abdomen and pelvis dated 09/02/2022. HISTORY: ORDERING SYSTEM PROVIDED HISTORY: KUB placement TECHNOLOGIST PROVIDED HISTORY: KUB placement Portable?->Yes FINDINGS: Enteric tube has been placed. Sidehole is in the proximal stomach. Distal tip is in the mid stomach. There is persistent gas distention of the stomach and visualized upper abdominal small bowel loops. PN RIS CONSOLIDATED Kristan Bee DO - 09/03/2022 EXAMINATION: ONE SUPINE XRAY VIEW(S) OF THE ABDOMEN 09/02/2022 9:44 pm COMPARISON: CT abdomen and pelvis dated 09/02/2022. HISTORY: ORDERING SYSTEM PROVIDED HISTORY: KUB placement TECHNOLOGIST PROVIDED HISTORY: KUB placement Portable?->Yes FINDINGS: Enteric tube has been placed. Sidehole is in the proximal stomach. Distal tip is in the mid stomach. There is persistent gas distention of the stomach and visualized upper abdominal small bowel loops. IMPRESSION: Satisfactory position of the enteric tube. [facility] CBC with Auto Differentialon 09-02-2022 Basophils (Bld) [#/Vol] 0.04 10*3/uL [facility] Basophils/100 WBC (Bld) 0 % 0 - 2 % [facility] Eosinophils (Bld) [#/Vol] [facility] Eosinophils/100 WBC (Bld) 0 % Low 1 - 4 % [facility] [facility] Erythrocyte distribution width (RBC) [Ratio] 13.1 % 11.8 - 14.4 % [facility] Hematocrit (Bld) [Volume fraction] 41.5 % 40.7 - 50.3 % [facility] Hemoglobin (Bld) [Mass/Vol] 13.7 g/dL 13.0 - 17.0 g/dL [facility] Immature granulocytes (Bld) [#/Vol] 0.04 10*3/uL [facility] Immature granulocytes/100 WBC (Bld) 0 % 0 [facility] Interpretation and review of laboratory results Abnormal [facility] Lymphocytes/100 WBC (Bld) 9 % Low 24 - 43 % [facility] Lymphocytes/100 WBC (Bld) 1.33 % [facility] MCH (RBC) [Entitic mass] 32.3 pg 25.2 - 33.5 pg [facility] MCHC (RBC) [Mass/Vol] 33.0 g/dL 28.4 - 34.8 g/dL [facility] MCV (RBC) [Entitic vol] 97.9 fL 82.6 - 102.9 fL [facility] Monocytes/100 WBC (Bld) 5 % 3 - 12 % [facility] Monocytes/100 WBC (Bld) 0.72 % [facility] Neutrophils/100 WBC (Bld) 86 % High 36 - 65 % [facility] Nucleated RBC/100 WBC (Bld) [Ratio] 0.0 % 0.0 per 100 WBC [facility] Platelet mean volume (Bld) [Entitic vol] 9.1 fL 8.1 - 13.5 fL [facility] Platelets (Bld) [#/Vol] 245 10*3/uL [facility] RBC (Bld) [#/Vol] 4.24 10*6/uL 4.21 - 5.7 7 m/uL [facility] Segmented neutrophils/100 WBC (Bld) 12.71 % High [facility] WBC other (Bld) [#/Vol] 14.9 High [facility] CBC with Diffon 09-02-2022 Abs. Basophil 0.04 k/uL Normal 0.00-0.20 [facility] Comment on above: Performed By: #### C DP, BMPX #### [facility] [address] [place] [address] [place] [address] Control Cabinet Assembler: David Montez MD Abs. Eosinophil <0.03 Normal 0.00-0.44 [facility] Comment on above: Performed By: #### C DP, BMPX #### [address] [place] [id number] Control Cabinet Assembler: David Montez MD Abs.Imm.Granulocyte 0.04 k/uL Normal 0.00-0.30 [facility] Comment on above: Performed By: #### C DP, BMPX #### [address] [place], [facility]83 Control Cabinet Assembler: David Montez MD Abs.Neutrophil (Seg) 12.71 k/uL High 1.50-8.10 [facility] Comment on above: Performed By: #### C DP, BMPX #### [address] [place] [address] Control Cabinet Assembler: David Montez MD Basophils/100 WBC (Bld) 0 % Normal 0-2 [facility] Comment on above: Performed By: #### C DP, BMPX #### [address] [place], [place] [id number] Control Cabinet Assembler: David Montez MD Eosinophils/100 WBC (Bld) 0 % Low 1-4 [facility] Comment on above: Performed By: #### C DP, BMPX #### [facility] [address] [place], [place] [id number] Control Cabinet Assembler: David Montez MD Erythrocyte distribution width (RBC) [Ratio] 13.1 % Normal 11.8-14.4 [facility] Comment on above: Performed By: #### C DP, BMPX #### [facility] [address] [place], [facility]83 Control Cabinet Assembler: David Montez MD Hematocrit (Bld) [Volume fraction] 41.5 % Normal 40.7-50.3 [facility] Comment on above: Performed By: #### C DP, BMPX #### [address] [place], [facility]83 Control Cabinet Assembler: David Montez MD Hemoglobin (Bld) [Mass/Vol] 13.7 g/dL Normal 13.0-17.0 [facility] Comment on above: Performed By: #### C DP, BMPX #### [address] [place], [facility]83 Control Cabinet Assembler: David Montez MD Immature granulocytes/100 WBC (Bld) 0 % Normal 0 [facility] Comment on above: Performed By: #### C DP, BMPX #### [address] [place], [facility]83 Control Cabinet Assembler: David Montez MD Lymphocytes (Bld) [#/Vol] 1.33 10*3/uL Normal 1.10-3.70 [facility] Comment on above: Performed By: #### C DP, BMPX #### [address] [place], [facility]83 Control Cabinet Assembler: David Montez MD Lymphocytes/100 WBC (Bld) 9 % Low 24-43 [facility] Comment on above: Performed By: #### C DP, BMPX #### [facility] [address] [place], [facility]83 Control Cabinet Assembler: David Montez MD MCH (RBC) [Entitic mass] 32.3 pg Normal 25.2-33.5 [facility] Comment on above: Performed By: #### C DP, BMPX #### [facility] [address] [place] [address] [place]. [place], [place] [id number] Control Cabinet Assembler: David Montez MD MCHC (RBC) [Mass/Vol] 33.0 g/dL Normal 28.4-34.8 [facility] Comment on above: Performed By: #### C DP, BMPX #### [address] [place] [id number] Control Cabinet Assembler: David Montez MD MCV (RBC) [Entitic vol] 97.9 fL Normal 82.6-102.9 [facility] Comment on above: Performed By: #### C DP, BMPX #### [address] [place], [facility]83 Control Cabinet Assembler: David Montez MD Monocytes (Bld) [#/Vol] 0.72 10*3/uL Normal 0.10-1.20 [facility] Comment on above: Performed By: #### C DP, BMPX #### [address] [place], [place] [id number] Control Cabinet Assembler: David Montez MD Monocytes/100 WBC (Bld) 5 % Normal 3-12 [facility] Comment on above: Performed By: #### C DP, BMPX #### [facility] [address] [place] [address] [place]. [place], [place] [id number] Control Cabinet Assembler: David Montez MD Neutrophil (Seg) 86 % High 36-65 [facility] Comment on above: Performed By: #### C DP, BMPX #### [facility] [address] [place], [place] [phone] Control Cabinet Assembler: David Montez MD NRBC Automated 0.0 per 100 WBC Normal 0.0 [facility] Comment on above: Performed By: #### C DP, BMPX #### [facility] [address] [place] [address] Control Cabinet Assembler: David Montez MD Platelet mean volume (Bld) [Entitic vol] 9.1 fL Normal 8.1-13.5 [facility] Comment on above: Performed By: #### C DP, BMPX #### [facility] [address] [place] [address] Control Cabinet Assembler: David Montez MD Platelets (Bld) [#/Vol] 245 10*3/uL Normal 138-453 [facility] Comment on above: Performed By: #### C DP, BMPX #### [address] [place] [address] Control Cabinet Assembler: David Montez MD RBC (Bld) [#/Vol] 4.24 10*6/uL Normal 4.21-5.77 [facility] Comment on above: Performed By: #### C DP, BMPX #### [address] [place] [address] Control Cabinet Assembler: David Montez MD WBC (Bld) [#/Vol] 14.9 10*3/uL High 3.5-11.3 [facility] Comment on above: Performed By: #### C DP, BMPX #### [address] [place] [address] Control Cabinet Assembler: David Montez MD CMPon 09-02-2022 Albumin [Mass/Vol] 4.7 g/dL 3.5 - 5.2 g/dL [facility] Albumin/Globulin [Mass ratio] 1.4 {ratio} 1.0 - 2.5 [facility] ALP [Catalytic activity/Vol] 159 U/L High 40 - 129 U/L [facility] ALT [Catalytic activity/Vol] 24 U/L 5 - 41 U/L [facility] Anion gap [Moles/Vol] 12 mmol/L 9 - 17 mmol/L [facility] AST [Catalytic activity/Vol] 20 U/L NINF - 40 U/L [facility] Bilirubin [Mass/Vol] 0.3 mg/dL 0.3 - 1 .2 mg/dL [facility] Calcium [Mass/Vol] 9.6 mg/dL 8.6 - 10. 4 mg/dL [facility] Chloride [Moles/Vol] 99 mmol/L 98 - 10 7 mmol/L [facility] CO2 [Moles/Vol] 31 mmol/L 20 - 31 mmol/L [facility] Creatinine [Mass/Vol] 1.15 mg/dL 0.70 - 1.20 mg/dL [facility] GFR/1.73 sq M.predicted MDRD (S/P/Bld) [Vol rate/Area] - PINF [facility] Comment on above: These results are not intended for use in patients <18 years of age. eGFR results are calculated without a race factor using the 2020 CKD-EPI equation. Careful clinical correlation is recommended, particularly when comparing to results calculated using previous equations. The CKD-EPI equation is less accurate in patients with extremes of muscle mass, extra-renal metabolism of creatine, excessive creatine ingestion, or following therapy that affects renal tubular secretion. Glucose [Mass/Vol] 113 mg/dL High 70 - 99 mg/dL [facility] Interpretation and review of laboratory results Abnormal [facility] Potassium [Moles/Vol] 3.7 mmol/L 3.7 - 5.3 mmol/L [facility] Protein [Mass/Vol] 8.1 g/dL 6.4 - 8.3 g/dL [facility] Sodium [Moles/Vol] 142 mmol/L 135 - 144 mmol/L [facility] Urea nitrogen [Mass/Vol] 29 mg/dL High 8 - 23 mg/dL [facility] Urea nitrogen/Creatinine [Mass ratio] 25 mg/mg High 9 - [address] [facility] [address] ABDOMEN PELVIS W IV CONTR AST Additional Contrast? Noneon 09-02-2022 Radiology Study observation (narrative) [facility] Comp Metabolic Profon 2022 Albumin [Mass/Vol] 4.7 g/dL Normal 3.5-5.2 [facility] Comment on above: Performed By: #### C DP, BMPX #### [facility] [address] [place], [place] [id number] Control Cabinet Assembler: David Montez MD Albumin/Glob Ratio 1.4 Normal 1.0-2.5 [facility] Comment on above: Performed By: #### C DP, BMPX #### [facility] [address] [place], [place] [phone] Control Cabinet Assembler: David Montez MD Alkaline Phos 159 U/L High 40-129 [facility] Comment on above: Performed By: #### C DP, BMPX #### [facility] [address] [place], [place] [phone] Control Cabinet Assembler: David Montez MD ALT [Catalytic activity/Vol] 24 U/L Normal 5-41 [facility] Comment on above: Performed By: #### C DP, BMPX #### [facility] [address] [place], [place] [phone] Control Cabinet Assembler: David Montez MD Anion gap [Moles/Vol] 12 mmol/L Normal 9-17 [facility] Comment on above: Performed By: #### C DP, BMPX #### [facility] [address] [place], [place] [phone] Control Cabinet Assembler: David Montez MD AST [Catalytic activity/Vol] 20 U/L Normal <40 [facility] Comment on above: Performed By: #### C DP, BMPX #### [facility] [address] [place], [place] [phone] Control Cabinet Assembler: David Montez MD Bilirubin [Mass/Vol] 0.3 mg/dL Normal 0.3-1.2 [facility] Comment on above: Performed By: #### C DP, BMPX #### [facility] [address] [place] [address] Control Cabinet Assembler: David Montez MD BUN/CRE Ratio 25 High 9-20 [facility] Comment on above: Performed By: #### C DP, BMPX #### [facility] [address] [place] [address] Control Cabinet Assembler: David Montez MD Calcium [Mass/Vol] 9.6 mg/dL Normal 8.6-10.4 [facility] Comment on above: Performed By: #### C DP, BMPX #### [facility] [address] [place] [address] Control Cabinet Assembler: David Montez MD Chloride [Moles/Vol] 99 mmol/L Normal 98-107 [facility] Comment on above: Performed By: #### C DP, BMPX #### [facility] [address] [place] [address] Control Cabinet Assembler: David Montez MD CO2 [Moles/Vol] 31 mmol/L Normal 20-31 [facility] Comment on above: Performed By: #### C DP, BMPX #### [facility] [address] [place] [address] Control Cabinet Assembler: David Montez MD Creatinine [Mass/Vol] 1.15 mg/dL Normal 0.70-1.20 [facility] Comment on above: Performed By: #### C DP, BMPX #### [facility] [address] [place] [address] Control Cabinet Assembler: David Montez MD GFR/1.73 sq M.predicted among non-blacks MDRD (S/P/Bld) [Vol rate/Area] mL/min/{1.73_m2} Normal >60 [facility] Comment on above: Result Comment: These results are not intended for use in patients <18 years of age. eGFR results are calculated without a race factor using the 2020 CKD-EPI equation. Careful clinical correlation is recommended, particularly when comparing to results calculated using previous equations. The CKD-EPI equation is less accurate in patients with extremes of muscle mass, extra-renal metabolism of creatine, excessive creatine ingestion, or following therapy that affects renal tubular secretion. Performed By: #### C DP, BMPX #### [facility] [address] [place] [address] Control Cabinet Assembler: David Montez MD Glucose [Mass/Vol] 113 mg/dL High 70-99 [facility] Comment on above: Performed By: #### C DP, BMPX #### [facility] [address] [place], [place] [phone] Control Cabinet Assembler: David Montez MD Potassium [Moles/Vol] 3.7 mmol/L Normal 3.7-5.3 [facility] Comment on above: Performed By: #### C DP, BMPX #### [facility] [address] [place], [place] [phone] Control Cabinet Assembler: David Montez MD Protein [Mass/Vol] 8.1 g/dL Normal 6.4-8.3 [facility] Comment on above: Performed By: #### C DP, BMPX #### [facility] [address] [place] [address] [place], [place] [phone] Control Cabinet Assembler: David Montez MD Sodium [Moles/Vol] 142 mmol/L Normal 135-144 [facility] Comment on above: Performed By: #### C DP, BMPX #### [facility] [address] [place] [address] Control Cabinet Assembler: David Montez MD Urea nitrogen [Mass/Vol] 29 mg/dL High 8-23 [facility] Comment on above: Performed By: #### C DP, BMPX #### [facility] [address] [place], [place] [phone] Control Cabinet Assembler: David Montez MD Lactic Acidon 09-02-2022 Lactate [Moles/Vol] 1.3 mmol/L Normal 0.5-2.2 [facility] Comment on above: Performed By: #### R EJEC, IPF, CDP #### [facility] [address] [place] [address] Control Cabinet Assembler: David Montez MD Lactate (BldV) [Moles/Vol] 1.3 mmol/L 0.5 - 2.2 mmol/L [facility] Lipaseon 09-02-2022 Lipase [Catalytic activity/Vol] 27 U/L Normal 13-60 [facility] Comment on above: Performed By: #### C DP, BMPX #### [facility] [address] [place] [address] Control Cabinet Assembler: David Montez MD Lipase [Catalytic activity/Vol] 27 U/L 13 - 60 U/L [facility] No Panel Informationon 09-02 [facility] XR ABDOMEN FOR NG/OG/NE TUBE PLACEMENTon 09-02-2022 Radiology Study observation (narrative) [facility] Coding Summary.on 06-28-2022 Coding Summary. CD:[id number] Ww+PGhlYWQ+IU3XWQKcC 65ypCNgoV2rL5HBMAfNU ywgQVBQTElOSyIgbmFtZ H2xlILzJQZm IC8+CM4iPVJtCkhshFYk w3L1fVT9I32vni3mGOel tQE1JWDeLbYwgagmt8op kOb4MXmwLnvtSaOd QUPpdV18GZH1wR49Nw36 bDWejIYwa8onaOv2DmXe PKYaGGQ3wAffZZdqz0Ac HLIsC81scSEpc0E3 IGNvbGxhcHNlOyBlbXB0 mP7lTPkrkyuor9nptxzc Iyl9el01tRQlg5W1gJY8 F6LpxbU9BCBonMMz TpoplPBMmV8qspyiy9an rnpdDwMiKRVaPQa5QIo8 QUFxxZwoXmRoEE81WUW3 CNRpwuAsU7YyGOUp wGeaNeX2j5W8Zq4DY8FQ OolrV0LXNFXYGTdmySX+ OY36mk64N2ZxZnmcToe4 YKGyCAM1oJD0nU2t IOEdVKwdv0C4eOI7D1Su iuLpod6uy4afTNXjACaz S12fuUWuy5R9XXDeeNK0 PLUinPpbVfQkoD23 Oyc+GFBqiRqmx1RbZzkr c9aoj7jmyKu9RxsyJUIo vqJnrDuzFRT6b8WfMs9x NPXcwVA8lIC6vP4w CmUyBhE5QLtiP616KfGq wTEfNiltE05cV9ZriKE+ TOJdHte4RSNkyReuDS1b P2YdDOYhcfyzsXYb wOljNH6zUGMurhbeNQJl gF2sUPLvB8q6JnImXzW8 AWpwM6RlBBUvorhsDm30 rL8rIjOpLzQ5IRlk B3RkftS2KXYzbFKuVKmz MXL3Z50fm1O6HDYsBLTj ZTQ3aSE7vV7bzIkeulkj bGVmdDsgdmVydGlj AGadQLjgD535YACmcFhk PkNvZGluZyBEYXRlOiAg MDQvMjYvMjAyMzwvdGQ+ YPKyGCT3nHtiQQSw yKRrOXqwNc9duBiauJjv VZ0iTBKjunzdIAZupZ8j LMAidKWfmXwjXN6dCZDk yshce086JyViHQN8 SNYoiWKzP3FtbS7bNuKp VSArEKNlV5IdjHCrBWrp O694TFjqBfE1JGGgfjXn N8VoSPFbpOrjVvE6 l2Y0Su2Za9UtgbhrX2Re dOFfSiYmLslgTRm0O6Xm PjwvdHI+EL50KIYhZY55 LCj5WPW5wRhfANsx ELNaI7YazW2oIhEgWIXa ZGRkOyc+PHRhYmxlIHdp ZHRoPScxMDAlJyBzdHls RU4tJr9uIOAxNBPn eOiwuPSsGzXqs4aaOGLn KQytOG4tmDguC9CzxWA1 DNOye3m0Hm59V12iH8Pw dXA+PZOmvYA0tAG4 iY4yPpEiYvL0EBgeG332 LwXapDUoNkatz1kqz0mc lGy8HqH1EVRzsnNbqTet AGY4y5CoPw30X05b IHdpZHRoPSIxNSUiIHZh kHznbg5ikK8sRu9+PGNv aGX9tJR3jW5gXaWuEiX7 RAjjE751TmWxlSTa Uukjs8pfa3owxFx2ZoFx BEMzqwLdcJagDLD3o0Mx Ix69I5VpiZdcs8YqUmb3 zb54lAMll7Z1tEL5 A5DtWHYhtbfxwAAnyHkp OF5vAYJaxmmxADMjdQ7h YVKkE1t2TbYnJpX4AIwf A0AowqY8IBBmiPYe JUWrlAOZjY6pkwlct8bw algjUxVpIRRfLHv9BEt8 TXFbyBehDnEdJIQ5KiN2 KXY8qUPyfM1fmCda huxdxA5fUux+APN9gWFn bRCHCQ9qLyqxiSS+PHRk YGB8tGhwQNefJDAylV2y SEQoZ5q8OuBfYyW3 BQxsY9WyghE9EHZleLQj HVLfnUMBvN2vgwvyp2mv eusbScWbHIDiUWs2XCl5 LWFsaWduOiBsZWZ0 HxQ9TZE1kDOmiI0kuLny xvwjwO9wJcq+QmlydGgg OIY4FYb0T2IwTtx3WYDg iPwhAP0meXSsPJmz Yb3wxMwbnDreUQ0xLUKc byzmc303FeHlh9ujMKWc fKGnXKglBRV6Y93fc4V8 BHEeGNMhGSY0oAQ5 yR3hpTnsqppmvBIvdPau ovSymXfvSXwyKTqdZ954 MVVyxLlzDkRcREx9J0Ed Ghk6ONKyjWtwHH3r yEYvDYdzQp1wxMpdoHxm GT7mMCNtmqoxl606OvGf h3zdBBRkyIYdKNtxMIX1 T55ye3E0VOTmDYLa NUG1lOS4oT2bgQifvqyy bGVmdDsgdmVydGljYWwt OYqfL237PLZrkDvwFlEh eLy8K8NbKtr5NLRm vCfjRT6ebNCsSQomEn0y lXndcVygKU3sSJQnhswg z025MkYvg4poDRFxdMQg PDziVGY5X39dg6N4 GLTdREXeJQG0nLC1yX7p bGlnbjogbGVmdDsgdmVy aUcpKAssIRewY219EOJb cDsnPlBhdGllbnQg KJyxWXc4T1JrIhberMO+ JI01GPVuYM69dYHjgLBe q9ofgKl9LwWsSGMoKCC0 zNdzWQxff1MnOIAa Q78kmBLlb8E7ZWTcfMzl gSFlXcUfhOP5gI0mFLgd wplqd2ogjddkVhtlr4bu it11qB56C42wRJxe ZHRoPSIzMCUiIHZhbGln yz4leJ5eYx8+PGNvbCB3 vNV7jW6rTZVdStH9YDqh I924GuUtcHLbZvls m2kbv6eopSv7HjW5RGBs cpGhlWlnLEJ3x1EuXs48 K22tWWgwGPCeYHOeDMKu WOKdiUhuny5chX4j Ii8+SJWivVC4zHR9eJ6v HgXlFcG9LQorS189UmGv sZBzUdqqP20wM7BmbAN+ XMMxHzz3MXDexOvy RP2usMAsRSxxWw3iMNZ3 YgQeAsDkFPueH0UnKPWl hocjrbdepHB3IZPkEKQt dO72Zq0koLukPLCh fYRSvF2ujdmyl7yrrqtj BqSpQZQkEQq6FAh4DSLl tEmrBgRkXWE8NrN5TYP0 pWReyG3tyHzuotxe gI6rP1TlNCDoipajTv87 wO9uWdNwHxG1CYtcBuy+ ONDNW0FpBFJRI0sPRJH4 X6JeFer9EFBdpAhj WR8mpIBzNNneMc4szEwt xFazUP9fYCKjvdupLQQv mH0rCGOeaZRyjXtgST5t WOWmwzyea274FuUr JVH7JFTynSVzX3KifH8d GoDbIGYzOTCfB5AruRSq OIkgE159XJtlFsF1NAGe aaKsC7PvQUNrfUkx WpE1h2R7Sj7yZF8mCo8v VGL3GQ44RS71kWWmj1X0 tWD3X4NtXYSlwiocphyj bCF2EHEfWYPchV87 bYArHXytNm0gf1Y5m906 INJhNDNssW32Tx3dgWju PTMdmIRInF3kxyoxd7by cjogIzAwMDAwMDt0 RPf6NMKrhVxqTmArFCN5 MmH4QWP7nQOpyC9oqAtw ulakeY3pRyl+NjYgWWVh ebO8Z5EfKmo6HPIc lPydBV9ilKQbMHmyNf8a gJekaTijWQ7yHYFtpvig JVMisF5kWPGayEZdpTlb CO7cNMNabwbkf649 SdZuJHI9FEBizKSaJ5Ow fV9fVfDwWOPvXBYlI6Cq fVNeDAcrV526HBhnYeJ3 SHXodpWrH3GoMWVh aBkyRoG0h0K3Fp4EJFkw WZ32XV57tRCps3K1qRV6 C2AmTPKyijpzhgggiOF3 RKDuNNLluG75zTYz ZAzzKm5ab4P8l828HOYc FRZcqP72Tw0xcJfcPUIx uMFEpQ7walkut3qyxkjo MtNgELOrRKd9SNq9 UYWfaOxwMfEuOIW1FvE0 LYN1sLUpcJ7vgMruhnqt kL5aYmk+AP6vAUJcKJ70 KQ41RD91R1ByKrld dGFibGU+PHRhYmxlIHdp ZHRoPScxMDAlJyBzdHls WC7jOh2pZZKgXGHzyAez bCOrJtYtd9xgYHBo UVilUK7vlTyoW7JztRY4 HEWcc3q0Ng05I10pC9Uz dXA+LFEphUB9pPX9vX5i LjJiXrO0BLtgT543 IcRskWDfUyekl1opj1wl qXw8ZeVkWZHyppHmoOhh EUB0l5BjTz81Z56rDIgp ZHRoPSIyMCUiIHZh dKupeb5exS2tIn8+PGNv eQT7aEP2lH6uCsNhYzZ6 VPixI476YtKciADwGsep O16hD7MfiRV+PHRy Lgv3JJLneBqsYH0mjWMx KUtgLv5lLQQ6HuKlMnJa PAkaE5VjKRFfdlfpjotb bCY5YARaTIMpbN44 Dd0jhYhpEd4kSSBlGTB8 OZQetXOlK5EczJ8mWiEx XYUhQDJrD8KwsAIjQTrp G463OCetVzW0TFJz feVzQ4LfOCQbcSvfJtV0 i0G0Pe4LaRcszDGtOJ7i HcUkHVl7O7YhBed4DMFz tUbtGI7epGBfEZya Mq1uyAgruOqtRK8rBLIq odpsr892QgEnz0yzJCRp lDIbYRwmEJI5I70tz4E2 TGYuRJZfQBT0hSE7 cE8ypBddrukvnRXxnYeh bwXzrDuiQQiaYWssY737 CMBviDmkGrYWNgn2S4Uh Kwh4QOVbvClsZM1o jCPiUUaxQp9cvOddjFlf RL6fMRTplrmum698MeLh k9lfBXKwjLXoVOwrBXJ7 Y85mx8W6XMQpGXPt HDE9wQS1iO8nvKztwqzi bGVmdDsgdmVydGljYWwt KEifK244FKMsdRnsUy7C Roa8F8XhHjt9CJZu lAvwUL4jcAHwHSnoOa3j wKnfqBwrTV4oUHBvvpyf g446XnKpj0fhNKHgzDPa SFyePVJ1G65fu5B1 NIIwJSKyEDN7uGQ1iU5v bGlnbjogbGVmdDsgdmVy sMutFHkpHHtaM829MUBx cDsnPlBheWVyOjwv dGQ+TC47fx03O6BoCfzo Lhw6KYGrXST7hWT9uW5j TWRgSWouq8T5uTR8H4Sj ieGupd4ap9mqPSEq DOfyC86y (more content not included)... Normal [facility] Auto Diffon 06-27-2022 Basophils/100 WBC (Bld) 0.7 % Normal 0.0-2.0 [facility] Comment on above: Order Comment: Order Added by Discern Expert. Performed By: #### 2 [id number], [id number], 1691552, [id number], [id number], [id number] #### [facility] Laboratory [address] [place] [address] Basophils/Leukocytes Auto (Bld) [Pure # fraction] 0.0 E9/L Normal 0.0-0.2 [facility] Comment on above: Order Comment: Order Added by Discern Expert. Performed By: #### 2 [id number], 1626292, 5547322, [id number], 0881827, 5940701 #### [facility] [address] [place] [address] Eosinophils/100 WBC (Bld) 8.9 % High 0.0-8.0 [facility] Comment on above: Order Comment: Order Added by Discern Expert. Performed By: #### 2 [id number], 0076983, 4393972, 52154816, 1133324, 9392831 #### [facility] [address] [place] [address] Eosinophils/Leukocytes Auto (Bld) [Pure # fraction] 0.5 E9/L Normal 0.0-0.5 [facility] Comment on above: Order Comment: Order Added by Discern Expert. Performed By: #### 2 [id number], 6846293, 1268171, 06557304, 5149974, 4814710 #### [facility] [address] [place] [address] Lymphocytes/100 WBC (Bld) 28.3 % Normal 14.0-50.0 [facility] Comment on above: Order Comment: Order Added by Discern Expert. Performed By: #### 2 052043, 0713795, 7269478, 15106206, 9692396, 8081084 #### [facility] [address] [place] [address] Lymphocytes/Leukocytes Auto (Bld) [Pure # fraction] 1.5 E9/L Normal 1.0-4.0 [facility] Comment on above: Order Comment: Order Added by Discern Expert. Performed By: #### 2 [id number], 0532580, 2056337, 17196529, 6304105, 6546102 #### [facility] [address] [place] [address]81 Monocytes/100 WBC (Bld) 10.7 % Normal 4.0-14.0 [facility] Comment on above: Order Comment: Order Added by Discern Expert. Performed By: #### 2 521584, 5600308, 6167009, 63367085, 0255616, 1594190 #### [facility] [address] [place] [address] Monocytes/Leukocytes Auto (Bld) [Pure # fraction] 0.6 E9/L Normal 0.2-1.0 [facility] Comment on above: Order Comment: Order Added by Discern Expert. Performed By: #### 2 575300, 4211216, 3970724, 80345845, 1616584, 4122972 #### [facility] [address] [place] [address] Neutrophils/100 WBC (Bld) 51.4 % Normal 36.0-75.0 [facility] Comment on above: Order Comment: Order Added by Discern Expert. Performed By: #### 2 147062, 9154591, 1233846, 48320754, 5733966, 0809451 #### [facility] [address] [place] [address] Neutrophils/Leukocytes Auto (Bld) [Pure # fraction] 2.7 E9/L Normal 2.0-7.5 [facility] Comment on above: Order Comment: Order Added by Discern Expert. Performed By: #### 2 340722, 7225584, 4777137, 50819092, 6836675, 7836218 #### [facility] Laboratory [address] [place] [address] BMPon 06-27-2022 Anion gap [Moles/Vol] 9 mmol/L Normal 6-16 [facility] Comment on above: Performed By: #### 2 317455, 4171904, 2711251, 26593600, 1154736, 4452793 #### [facility] Laboratory [address] [place] [address] Calcium [Mass/Vol] 8.0 mg/dL Low 8.9-11.1 [facility] Comment on above: Performed By: #### 2 915958, 9360920, 4311199, 95441333, 4535338, 2501374 #### [facility] Laboratory [address] [place] [address] Chloride [Moles/Vol] 105 mmol/L Normal 101-[address] [facility] Comment on above: Performed By: #### 2 418158, 8328636, 7466288, 08661552, 8332426, 5145852 #### [facility] Laboratory [address] [place] [address] CO2 [Moles/Vol] 26 mmol/L Normal 21-31 [facility] Comment on above: Performed By: #### 2 532028, 4493665, 1357219, 97384594, 2911706, 3192640 #### [facility] Laboratory [address] [place] [address] Creatinine [Mass/Vol] 0.9 mg/dL Normal 0.5-1.3 [facility] Comment on above: Performed By: #### 2 360853, 8358071, 3583099, 63786286, 2363320, 5421731 #### [facility] Laboratory [address] [place] [address] Glucose [Mass/Vol] 98 mg/dL Normal 55-199 [facility] Comment on above: Result Comment: If t his glucose result represents a fasting glucose, interpretation should refer to the following reference range: 55-99 mg/dL Performed By: #### 2 212995, 2745241, 1114128, 33554763, 3371059, 3688655 #### [facility] Laboratory [address] [place] [address] Potassium [Moles/Vol] 4.3 mmol/L Normal 3.5-5.3 [facility] Comment on above: Performed By: #### 2 992113, 2323902, 1881548, 92614265, 9925956, 9185295 #### [facility] Laboratory [address] [place] [address] Sodium [Moles/Vol] 136 mmol/L Normal 135-145 [facility] Comment on above: Performed By: #### 2 065027, 3123122, 2746260, 80531300, 7866022, 6573791 #### [facility] Laboratory [address] [place] [address] Urea nitrogen [Mass/Vol] 11 mg/dL Normal 5-21 [facility] Comment on above: Performed By: #### 2 322045, 3454932, 4617576, 12583548, 7721294, 3322307 #### [facility] Laboratory [address] [place] [address] Urea nitrogen/Creatinine [Mass ratio] 12 No Units Normal 10-20 [facility] Comment on above: Performed By: #### 2 439337, 0733781, 9516970, 09097945, 2185856, 7260717 #### [facility] Laboratory [address] [place] [address] CBC w/ Auto Diffon Erythrocyte distribution width (RBC) [Ratio] 13.5 % Normal 10.9-14.2 [facility] Comment on above: Performed By: #### 2 829904, 9992888, 3700242, 40977227, 7258094, 4890681 #### [facility] Laboratory [address] [place] [address] Hematocrit (Bld) [Volume fraction] 30.9 % Low 37.7-49.0 [facility] Comment on above: Performed By: #### 2 744259, 4704318, 0519763, 19995079, 5457678, 5247662 #### [facility] Laboratory [address] [place] [address] Hemoglobin (Bld) [Mass/Vol] 10.6 g/dL Low 13.5-17.5 [facility] Comment on above: Performed By: #### 2 614479, 0200663, 3037037, 62179368, 5422421, 7221695 #### [facility] Laboratory [address] [place] [address] MCH (RBC) [Entitic mass] 33.1 pg Normal 27.0-34.0 [facility] Comment on above: Performed By: #### 2 046530, 5473345, 0440530, 28765924, 6699408, 8359600 #### [facility] Laboratory [address] [place] [address] MCHC (RBC) [Mass/Vol] 34.4 g/dL Normal 31.4-36.0 [facility] Comment on above: Performed By: #### 2 014989, 1050954, 1462535, 08105879, 3770759, 9352803 #### [facility] Laboratory [address] [place], [place] [address] MCV (RBC) [Entitic vol] 96.1 fL Normal 80.0-100.0 [facility] Comment on above: Performed By: #### 2 085214, 3532655, 5972974, 91378895, 8098244, 8817773 #### [facility] Laboratory [address] [place] [address] Platelet mean volume (Bld) [Entitic vol] 7.2 fL Normal 6.4-10.8 [facility] Comment on above: Performed By: #### 2 321572, 6437633, 8974818, 31057554, 3791123, 2354225 #### [facility] Laboratory [address] [place], [place] [address] Platelets (Bld) [#/Vol] 271.0 E9/L Normal 150.0-500.0 [facility] Comment on above: Performed By: #### 2 880769, 5677501, 2818261, 56154997, 9996227, 3889719 #### [facility] Laboratory [address] [place], [place] [address] RBC (Bld) [#/Vol] 3.2 E12/L Low 4.3-5.9 [facility] Comment on above: Performed By: #### 2 857276, 2269675, 5533377, 80351497, 3730370, 1444758 #### [facility] Laboratory [address] [place] [address] WBC corrected for nucl RBC Auto (Bld) [#/Vol] 5.3 E9/L Normal 4.0-11.0 [facility] Comment on above: Performed By: #### 2 864326, 1788381, 3281950, 49205623, 2561717, 1431555 #### [facility] Laboratory [address] [place] [address] CHEMISTRYOrdered By: Lab ROP User on 06-27-2022 Glucose [Mass/Vol] 102 mg/dL High 55 - 99 mg/dL [facility] [place] Comment on above: Result Comment: Kelsey jordon Meter POC Device SN [id number] Invalid Interpretation Code FT POC Subsection POC User ID [id number] Invalid Interpretation Code FT POC Subsection POC Username JANA HOLLINGSWORTH Invalid Interpretation Code [facility] P[place] Subsection Glucose [Mass/Vol] 93 mg/dL Normal 55 - 99 mg/dL [facility] POC Subsection Comment on above: Result Comment: Moody vogel RN/ POC Device SN [id number] Invalid Interpretation Code FT POC Subsection POC User ID [id number] Invalid Interpretation Code FT POC Subsection POC Username LUDIN PARISI Invalid Interpretation Code [facility] P[place] Subsection CHEMISTRYOrdered By: SYSTEM SYSTEM on 06-27-2022 Anion gap [Moles/Vol] 9 mmol/L Normal 6 - 16 mEq/L [facility] Remisol Calcium [Mass/Vol] 8.0 mg/dL Low 8.9 - 11. 1 mg/dL [facility] Chloride [Moles/Vol] 105 mmol/L Normal 101 - 1 11 mmol/L [facility] CO2 [Moles/Vol] 26 mmol/L Normal 21 - 31 mmol/L [facility] Creatinine [Mass/Vol] 0.9 mg/dL Normal 0.5 - 1.3 mg/dL [facility] GFR/1.73 sq M.predicted among blacks MDRD (S/P/Bld) [Vol rate/Area] mL/min/1.73 m2 Normal >=59mL/min/ 1.73 m2 [facility] Chem S GFR/1.73 sq M.predicted among non-blacks MDRD (S/P/Bld) [Vol rate/Area] mL/min/1.73 m2 Normal >=59mL/min/ 1.73 m2 [facility] Chem S Glucose [Mass/Vol] 98 mg/dL Normal 55 - 199 mg/dL [facility] Remisol Magnesium [Mass/Vol] 1.6 mg/dL Normal 1.3 - 2 .4 mg/dL [facility]isol Potassium [Moles/Vol] 4.3 mmol/L Normal 3.5 - 5.3 mmol/L [facility] Remisol Sodium [Moles/Vol] 136 mmol/L Normal 135 - 145 mmol/L [facility] Remisol Urea nitrogen [Mass/Vol] 11 mg/dL Normal 5 - 21 mg/dL [facility] Remisol Urea nitrogen/Creatinine [Mass ratio] 12 mg/mg Normal 10 - 20 [facility] Remisol Capillary Glucose POCon 06-04 Glucose [Mass/Vol] 102 mg/dL High 55-99 [facility] Comment on above: Result Comment: Kelsey jordon Meter Performed By: #### 2 [id number] #### [facility] Laboratory [address] [place] [address] Glucose [Mass/Vol] 93 mg/dL Normal 55-99 [facility] Comment on above: Result Comment: Moody vogel RN/ Performed By: #### 2 [id number] ####[facility] [address] [place] [address] Glucose [Mass/Vol] 103 mg/dL High 55-99 [facility] Comment on above: Result Comment: Moody FORREST Performed By: #### 2 [id number] ####[facility] [address] [place] [address] Discharge Note-Nursingon Discharge Note-Nursing BRANDON AMOL Laurent :1955 Visit Date:06/23/2022 Inpatient Discharge Instructions Your Care Team Admitting Physician - Henrry MOELLER, Kari Mccollum Reason for Your Visit Vomitting Your Diagnosis Generalized dysmotility of intestine Epilepsy BPH with urinary obstruction Development delay Hypokalemia Tests Performed Automated Diff BMP BMP Capillary Glucose POC CBC w/ Auto Diff eGFR Lamotrigine Level -- Results Pending -- Magnesium Level Primidone Level -- Results Pending -- XR Abdomen 1 View Please visit your patient portal for your results or contact your primary care physician. This Is Your Medications List acetaminophen calcium carbonate (calcium carbonate 500 mg Chew Tab) carbamide peroxide otic (Ear Wax 6.5% otic solution) cholecalciferol (Vitamin D 1000 intl units (25 mcg) Tab) diazepam finasteride (finasteride 5 mg Tab) hydrOXYzine (hydrOXYzine hydrochloride 25 mg Tab) lacosamide (lacosamide 150 mg oral tablet) lamotrigine (lamotrigine 200 mg Tab) lamotrigine (lamotrigine 200 mg Tab) latanoprost ophthalmic (latanoprost 0.005% ophthalmic emulsion) levetiracetam (levETIRAcetam 750 mg oral tablet, dispersible) levetiracetam (levetiracetam 1000 mg oral tablet) lorazepam (LORazepam 0.5 mg Tab) meclizine (meclizine 25 mg Tab) melatonin (melatonin 3 mg Tab) metoclopramide (Reglan 5 mg Tab) ondansetron (ondansetron 4 mg Tab) oxybutynin (oxybutynin 10 mg ER Tab) polyethylene glycol 3350 (MiraLax) primidone (primidone 250 mg Tab) primidone (primidone 250 mg Tab) senna (senna 8.6 mg Tab) tamsulosin (tamsulosin 0.4 mg Cap) trazodone (traZODONE 50 mg Tab) [Image Removed: STOP]Stop taking these medications diphenhydrAMINE (diphenhydrAMINE 25 mg Cap) loperamide (loperamide 2 mg Cap) Procedure History Exploratory laparotomy (06/14/2021), Hydrocelectomy (10/21/2015), Left shoulder (1990), Colonoscopy, Small bowel resection, Vagus nerve stimulator. Discharge Vitals Temperature (Oral) 36.7 ?C Heart Rate (Monitored) 81 Respiratory Rate 18 Blood Pressure 105/64 Weight 84.7 kg What to do next Instructions From Your Doctor Event Name Event Result Pending Diagnostic Test Results None Pharmacy Information Other: [facility] in [place] Previously Scheduled Follow-Up Appointments Sunday 10:15 AM EST With: JAX MOELLER, Yasmani Cabrera Where: [facility] Normal [facility] HEMATOLOGYOrdered By: SYSTEM SYSTEM on 06-27-2022 Basophils/100 WBC (Bld) 0.7 % Normal 0.0 - 2.0 % [facility] Basophils/Leukocytes Auto (Bld) [Pure # fraction] 0.0 E9/L Normal 0.0 - 0.2 E9/L [facility] Eosinophils/100 WBC (Bld) 8.9 % High 0.0 - 8.0 % [facility] Eosinophils/Leukocytes Auto (Bld) [Pure # fraction] 0.5 E9/L Normal 0.0 - 0.5 E9/L [facility] Lymphocytes/100 WBC (Bld) 28.3 % Normal 14.0 - 50.0 % [facility] Lymphocytes/Leukocytes Auto (Bld) [Pure # fraction] 1.5 E9/L Normal 1.0 - 4.0 E9/L [facility] Monocytes/100 WBC (Bld) 10.7 % Normal 4.0 - 14.0 % [facility] Monocytes/Leukocytes Auto (Bld) [Pure # fraction] 0.6 E9/L Normal 0.2 - 1.0 E9/L [facility] Neutrophils/100 WBC (Bld) 51.4 % Normal 36.0 - 75.0 % [facility] Neutrophils/Leukocytes Auto (Bld) [Pure # fraction] 2.7 E9/L Normal 2.0 - 7.5 E9/L [facility] HEMATOLOGYOrdered By: Shruthi Caballero on 06-27-2022 Erythrocyte distribution width (RBC) [Ratio] 13.5 % Normal 10.9 - 14.2 % [facility] Hematocrit (Bld) [Volume fraction] 30.9 % Low 37.7 - 49.0 % [facility] Hemoglobin (Bld) [Mass/Vol] 10.6 g/dL Low 13.5 - 17.5 gm/dL [facility] MCH (RBC) [Entitic mass] 33.1 pg Normal 27.0 - 34.0 pg [facility] MCHC (RBC) [Mass/Vol] 34.4 g/dL Normal 31.4 - 36.0 gm/dL [facility] MCV (RBC) [Entitic vol] 96.1 fL Normal 80.0 - 100.0 fL [facility] Platelet mean volume (Bld) [Entitic vol] 7.2 fL Normal 6.4 - 10.8 fL [facility] Platelets (Bld) [#/Vol] 271.0 E9/L Normal 150.0 - 500.0 E9/L [facility] RBC (Bld) [#/Vol] 3.2 E12/L Low 4.3 - 5.9 E12/L [facility] WBC corrected for nucl RBC Auto (Bld) [#/Vol] 5.3 E9/L Normal 4.0 - 11.0 E9/L [facility] Inpatient Patient Summaryon 06-27-2022 Inpatient Patient Summary AMOL TAYLOR Mehran :1955 Visit Date:06/23/2022 Inpatient Discharge Instructions Your Care Team Admitting Physician - Henrry MOELLER, Kari Mccollum Reason for Your Visit Vomitting Your Diagnosis Generalized dysmotility of intestine Epilepsy BPH with urinary obstruction Development delay Hypokalemia Tests Performed Automated Diff BMP BMP Capillary Glucose POC CBC w/ Auto Diff eGFR Lamotrigine Level -- Results Pending -- Magnesium Level Primidone Level -- Results Pending -- XR Abdomen 1 View Please visit your patient portal for your results or contact your primary care physician. This Is Your Medications List acetaminophen calcium carbonate (calcium carbonate 500 mg Chew Tab) carbamide peroxide otic (Ear Wax 6.5% otic solution) cholecalciferol (Vitamin D 1000 intl units (25 mcg) Tab) diazepam finasteride (finasteride 5 mg Tab) hydrOXYzine (hydrOXYzine hydrochloride 25 mg Tab) lacosamide (lacosamide 150 mg oral tablet) lamotrigine (lamotrigine 200 mg Tab) lamotrigine (lamotrigine 200 mg Tab) latanoprost ophthalmic (latanoprost 0.005% ophthalmic emulsion) levetiracetam (levETIRAcetam 750 mg oral tablet, dispersible) levetiracetam (levetiracetam 1000 mg oral tablet) lorazepam (LORazepam 0.5 mg Tab) meclizine (meclizine 25 mg Tab) melatonin (melatonin 3 mg Tab) metoclopramide (Reglan 5 mg Tab) ondansetron (ondansetron 4 mg Tab) oxybutynin (oxybutynin 10 mg ER Tab) polyethylene glycol 3350 (MiraLax) primidone (primidone 250 mg Tab) primidone (primidone 250 mg Tab) senna (senna 8.6 mg Tab) tamsulosin (tamsulosin 0.4 mg Cap) trazodone (traZODONE 50 mg Tab) [Image Removed: STOP]Stop taking these medications diphenhydrAMINE (diphenhydrAMINE 25 mg Cap) loperamide (loperamide 2 mg Cap) Procedure History Exploratory laparotomy (06/14/2021), Hydrocelectomy (10/21/2015), Left shoulder (1990), Colonoscopy, Small bowel resection, Vagus nerve stimulator. Discharge Vitals Temperature (Oral) 36.7 ?C Heart Rate (Monitored) 72 Respiratory Rate 18 Blood Pressure 107/64 Weight 84.7 kg What to do next Instructions From Your Doctor Event Name Event Result Pending Diagnostic Test Results None Pharmacy Information Other: [facility] in [place] Previously Scheduled Follow-Up Appointments Sunday 10:15 AM EST With: JAX MOELLER, Yasmani Cabrera Where: [facility] Lamotrigine Lvlon 06-27-2022 lamoTRIgine [Mass/Vol] <1.0 Low 2.0-20.0 [facility] Comment on above: Result Comment: Dete ction Limit = 1.0 Performed at: [facility] [id number] MD Wicho Espinal Performed By: #### 2 770878, 9603610, 6295144, 96292170, 6652546, 3026099 #### [facility] Laboratory [address] [place] [address] Magnesiumon 06-27-2022 Magnesium [Mass/Vol] 1.6 mg/dL Normal 1.3-2.[address] [facility] Comment on above: Performed By: #### 2 393992, 3284535, 8119341, 93192695, 1107498, 4787370 #### [facility] Laboratory [address] [id number] [facility] Recordson 06-27 [facility] [id number] 1#1.00CD:127 Normal [facility] Primidone Lvlon 06-27-2022 PHENobarbital [Mass/Vol] 15 microgram/mL Invalid Interpretation Code 15-40 [facility] Comment on above: Result Comment: Dete ction Limit = 3 Performed at: [facility] [id number] MD Wicho Espinal Performed By: #### 2 [id number] #### [facility] Laboratory [address] [id number] Primidone [Mass/Vol] Not detected Invalid Interpretation Code 5.0-12.0 [facility] Comment on above: Result Comment: Ve rified by repeat analysis Detection Limit = 0.3 <0.3 indicates None Detected Performed By: #### 2 [id number] #### [facility] Laboratory [address] [place] [address] Progress Note-Nurseon 2022 Progress Note-Nurse This jingle writer called report to Ra. patient made aware of discharge. brief changed and assisted patient with getting dressed. IV removed. Normal 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 Subjective No acute events overnight. Patient tolerating liquids without issue. Denies abdominal pain, nausea, vomiting. Positive BM and flatus. Review of Systems All organ systems are reviewed. Pertinent positive and negative findings as mentioned in the HPI. Objective Vitals & Measurements T: 36.1 ?C(Axillary) TMIN: 36.1 ?C(Axillary) TMAX: 37.1 ?C(Axillary) HR: 83(Monitored) RR: 21 BP: 108/68 SpO2: 98% WT: 81.9 kg Intake & Output This visit (24 hour periods starting at 07:00 EDT) 06/26/22 * 06/25/22 06/24/22 Total Summary Intake mL 474 1,151 1,298.68 Output mL -- 1,220 -- Fluid Balance 474 -69 1,298.68 Intake (6) Dextrose 5% in Lactated Ringers intravenous solution 1,000 mL mL -- -- 883.98 Ensure mL 474 711 237 Oral Intake mL -- 440 -- Sodium Chloride 0.9% intravenous solution 250 mL mL -- -- 12.7 Sodium Chloride 0.9%, levetiracetam mL -- -- 115 glucose mL -- -- 50 Total 474 1,151 1,298.68 Output (1) Urine Voided mL -- 1,220 -- Total -- 1,220 -- Counts (2) Diaper Count -- 2 3 Stool Count -- 2 1 * This column has not completed the indicated time period. Physical Exam Gen: Awake, alert, interactive Cv: regular rate Pulm: respirations even and unlabored on room air Abdomen: soft, nondistended, nontender Extremities: no cyanosis or edema Neuro: at baseline, interacts appropriately Lab Results WBC: 5.6 E9/L (06/26/22 06:21:00) RBC: 3.2 E12/L Low (06/26/22 06:21:00) HGB: 10.4 gm/dL Low (06/26/22 06:21:00) Hct: 31.8 % Low (06/26/22 06:21:00) MCV: 98 fL (06/26/22 06:21:00) MCH: 32 pg (06/26/22 06:21:00) MCHC: 32.7 gm/dL (06/26/22 06:21:00) RDW: 13.1 % (06/26/22 06:21:00) Platelet: 229 E9/L (06/26/22 06:21:00) MPV: 6.8 fL (06/26/22 06:21:00) Neutro Auto: 55.8 % (06/26/22 06:21:00) Lymph Auto: 25.8 % (06/26/22 06:21:00) [place] Auto: 10 % (06/26/22 06:21:00) Eos Auto: 7.4 % (06/26/22 06:21:00) Basophil Auto: 1 % (06/26/22 06:21:00) Neutro Absolute: 3.1 E9/L (06/26/22 06:21:00) Lymph Absolute: 1.4 E9/L (06/26/22 06:21:00) [place] Absolute: 0.6 E9/L (06/26/22 06:21:00) Eos Absolute: 0.4 E9/L (06/26/22 06:21:00) Basophil Absolute: 0.1 E9/L (06/26/22 06:21:00) Glucose Lvl: 93 mg/dL (06/26/22 06:21:00) BUN: 9 mg/dL (06/26/22 06:21:00) Creatinine: 0.8 mg/dL (06/26/22 06:21:00) eGFR: >60 (06/26/22 06:21:00) eGFR AA: >60 (06/26/22 06:21:00) BUN/Creat Ratio: 11 (06/26/22 06:21:00) Sodium Lvl: 137 mmol/L (06/26/22 06:21:00) Potassium Lvl: 4.3 mmol/L (06/26/22 06:21:00) Chloride: 108 mmol/L (06/26/22 06:21:00) CO2: 25 mmol/L (06/26/22 06:21:00) AGAP: 8 mEq/L (06/26/22 06:21:00) Calcium Lvl: 8.1 mg/dL Low (06/26/22 06:21:00) Magnesium: 1.6 mg/dL (06/26/22 06:21:00) Glucose Cap: 62 mg/dL (06/26/22 11:53:00) POC Device SN: [id number] (06/26/22 11:53:00) POC User ID: [id number] (06/26/22 11:53:00) POC Username: POC Username (06/26/22 11:53:00) Assessment/Plan 1. Generalized dysmotility of intestine (K59.89: Other specified functional intestinal disorders) Ordered: Regular Diet 2. Epilepsy (G40.909: Epilepsy, unspecified, not intractable, without status epilepticus) Ordered: Regular Diet 3. BPH with urinary obstruction (N40.1: Benign prostatic hyperplasia with lower urinary tract symptoms) Ordered: Regular Diet 4. Development delay (R62.50: Unspecified lack of expected normal physiological development in childhood) Ordered: Regular Diet 5. Hypokalemia (E87.6: Hypokalemia) Ordered: Regular Diet 67 y/o male with bowel dysmotility. - Tolerating full liquid diet. + Flatus, will advance to soft diet today. - Continue reglan 5mg scheduled, can increase to 10 if needed - Replace electrolytes as needed - D/C MIVF, blood glucose wnl today - having urinary retention - If have to straight cath multiple times, place will. Resumed all home BPH meds yesterday - finasteride, oxybutynin, flomax - Continue home lacosamide, keppra, lamotrigine, primidone - Nightly trazadone, PRN melatonin per home meds - SCDs, Lovenox for DVT prophylaxis - Remain on RNF Laney Mitchell PA-C Trauma Surgery/Surgical Critical Care/Emergency General Surgery *For urgent issues arising after 4PM during the week or on weekends/holiday, please page the trauma/EGS attending qa automation developer. This patient's plan of care was discussed with Trauma/Emergency General Surgery attending, Dr. Rowland Problem List/Past Medical History Ongoing BPH with urinary obstruction Epilepsy Nocturia Post-void dribbling Historical No qualifying data Medications Inpatient Ativan 2 mg/mL Injection, 1 mg= 0.5 mL, IV Push, q8hr, PRN Dulcolax 10 mg Supp, 10 mg= 1 supp, Rectal, Daily Ensure Enlive Chocolate 237 mL, 237 mL, Oral, TIDWM fi (more content not included)... Normal [facility] Comment on above: Result Comment: Elec tronically Signed By: Paula CONSTANTINO, Laney Israel\.br\Date and Time Signed: 06/26/22 13:40 EDT\.br\Electronically Co-Signed By: Leonel Rowland MD\.br\Date and Time Co-Signed: 06/27/22 16:30 EDT eGFRon 04-25-2023 GFR/1.73 sq M.predicted among blacks MDRD (S/P/Bld) [Vol rate/Area] mL/min/{1.73_m2} Normal >=59 [facility] Comment on above: Order Comment: Order Added by Discern Expert. Result Comment: eGFR is race adjusted. AA=. Performed By: #### 2 [id number], 4763729, 8064862, [id number], 7995572, [id number] #### [facility] Laboratory [address] [place] [address] GFR/1.73 sq M.predicted among non-blacks MDRD (S/P/Bld) [Vol rate/Area] mL/min/{1.73_m2} Normal >=59 [facility] Comment on above: Order Comment: Order Added by Discern Expert. Result Comment: Gear Nicker maria c kidney disease could be indicated at eGFR's of less than 60 mL/min/1.73m2. Kidney failure is indicated at less than 15 mL/min/1.73m2. Performed By: #### 2 589326, 6248625, 6570548, 57454011, 3654600, [id number] #### [facility] Laboratory [address] [place] [address] Auto Diffon 06-26-2022 Basophils/100 WBC (Bld) 1.0 % Normal 0.0-2.0 [facility] Comment on above: Order Comment: Order Added by Discern Expert. Performed By: #### 2 456224, 9675549, 6333524, 25640298, 4201549, [id number] #### [facility] Laboratory [address] [place] [address] Basophils/Leukocytes Auto (Bld) [Pure # fraction] 0.1 E9/L Normal 0.0-0.2 [facility] Comment on above: Order Comment: Order Added by Discern Expert. Performed By: #### 2 202897, 2751209, 9112315, 94117796, 9011361, 9618040 #### [facility] Laboratory [address] [place] [address] Eosinophils/100 WBC (Bld) 7.4 % Normal 0.0-8.0 [facility] Comment on above: Order Comment: Order Added by Discern Expert. Performed By: #### 2 710355, 6837920, 8471078, 92155721, 0859798, 1820134 #### [facility] Laboratory [address] [place] [address] Eosinophils/Leukocytes Auto (Bld) [Pure # fraction] 0.4 E9/L Normal 0.0-0.5 [facility] Comment on above: Order Comment: Order Added by Discern Expert. Performed By: #### 2 677074, 0660111, 2129548, 79064702, 4650048, 7603497 #### [facility] Laboratory [address] [place] [address]289 Lymphocytes/100 WBC (Bld) 25.8 % Normal 14.0-50.0 [facility] Comment on above: Order Comment: Order Added by Discern Expert. Performed By: #### 2 257361, 8861505, 1512914, 10713062, 3145866, 4780727 #### [facility] Laboratory [address] [place] [address] Lymphocytes/Leukocytes Auto (Bld) [Pure # fraction] 1.4 E9/L Normal 1.0-4.0 [facility] Comment on above: Order Comment: Order Added by Discern Expert. Performed By: #### 2 507725, 7249138, 1960817, 03687633, 0475021, 8852497 #### [facility] Laboratory [address] [place] [address]393 Monocytes/100 WBC (Bld) 10.0 % Normal 4.0-14.0 [facility] Comment on above: Order Comment: Order Added by Discern Expert. Performed By: #### 2 120346, 0561077, 4026183, 38892938, 8248991, 1841460 #### [facility] Laboratory [address] [place] [address] Monocytes/Leukocytes Auto (Bld) [Pure # fraction] 0.6 E9/L Normal 0.2-1.0 [facility] Comment on above: Order Comment: Order Added by Discern Expert. Performed By: #### 2 451656, 4252906, 9906788, 43837487, 5760758, 9401417 #### [facility] Laboratory [address] [place] [address] Neutrophils/100 WBC (Bld) 55.8 % Normal 36.0-75.0 [facility] Comment on above: Order Comment: Order Added by Discern Expert. Performed By: #### 2 729126, 2620313, 7431823, 02185938, 9806645, 8516852 #### [facility] Laboratory [address] [place] [address] Neutrophils/Leukocytes Auto (Bld) [Pure # fraction] 3.1 E9/L Normal 2.0-7.5 [facility] Comment on above: Order Comment: Order Added by Discern Expert. Performed By: #### 2 180310, 9878465, 3679824, 78206064, 2028712, 2847236 #### [facility] Laboratory [address] [place] [address] BMPon 06-26-2022 Anion gap [Moles/Vol] 8 mmol/L Normal 6-16 [facility] Comment on above: Performed By: #### 2 155717, 8986013, 0637548, 97962821, 0897324, 3405922 #### [facility] Laboratory [address] [place] [address] Calcium [Mass/Vol] 8.1 mg/dL Low 8.9-11.1 [facility] Comment on above: Performed By: #### 2 704963, 6160685, 2384205, 15331566, 1909465, 2254974 #### [facility] Laboratory [address] [place] [address] Chloride [Moles/Vol] 108 mmol/L Normal 101-111 [facility] Comment on above: Performed By: #### 2 052464, 5622585, 3058702, 78375387, 9329026, 6611503 #### [facility] Laboratory [address] [place] [address] CO2 [Moles/Vol] 25 mmol/L Normal 21-31 [facility] Comment on above: Performed By: #### 2 718459, 7871784, 1495652, 39417935, 7745508, 9612770 #### [facility] Laboratory [address] [place] [address] Creatinine [Mass/Vol] 0.8 mg/dL Normal 0.5-1.3 [facility] Comment on above: Performed By: #### 2 718406, 1906352, 4760522, 96774439, 7188338, 5244318 #### [facility] Laboratory [address] [place] [address] Glucose [Mass/Vol] 93 mg/dL Normal 55-199 [facility] Comment on above: Result Comment: If t his glucose result represents a fasting glucose, interpretation should refer to the following reference range: 55-99 mg/dL Performed By: #### 2 304042, 9393782, 7753497, 75465559, 3078851, 3703346 #### [facility] Laboratory [address] [place] [address] Potassium [Moles/Vol] 4.3 mmol/L Normal 3.5-5.3 [facility] Comment on above: Performed By: #### 2 172191, 8422377, 8737980, 18591862, 8439830, 2900264 #### [facility] Laboratory [address] [place] [address] Sodium [Moles/Vol] 137 mmol/L Normal 135-145 [facility] Comment on above: Performed By: #### 2 508614, 9636736, 5380449, 75468612, 5198493, 3224415 #### [facility] Laboratory [address] [place] [address] Urea nitrogen [Mass/Vol] 9 mg/dL Normal 5-21 [facility] Comment on above: Performed By: #### 2 708533, 1449818, 4586174, 56741520, 3701628, 5625654 #### [facility] Laboratory [address] [place] [address] Urea nitrogen/Creatinine [Mass ratio] 11 No Units Normal 10-20 [facility] Comment on above: Performed By: #### 2 143320, 0490545, 3362888, 08947750, 9954801, 1520383 #### [facility] Laboratory [address] 8656357 CBC w/ Auto Diffon 3 Erythrocyte distribution width (RBC) [Ratio] 13.1 % Normal 10.9-14.2 [facility] Comment on above: Performed By: #### 2 747812, 9563361, 7427437, 44739897, 1368515, 7881740 #### [facility] Laboratory [address] [place] [address] Hematocrit (Bld) [Volume fraction] 31.8 % Low 37.7-49.0 [facility] Comment on above: Performed By: #### 2 481134, 8259196, 7972001, 17945286, 1987231, 6907812 #### [facility] Laboratory [address] [place] [address] Hemoglobin (Bld) [Mass/Vol] 10.4 g/dL Low 13.5-17.5 [facility] Comment on above: Performed By: #### 2 536475, 9337306, 9895900, 04105140, 3075674, 4091776 #### [facility] Laboratory [address] [place] [address] MCH (RBC) [Entitic mass] 32.0 pg Normal 27.0-34.0 [facility] Comment on above: Performed By: #### 2 084711, 7937482, 6485828, 18067179, 0381104, 0086915 #### [facility] Laboratory [address] [place] [address] MCHC (RBC) [Mass/Vol] 32.7 g/dL Normal 31.4-36.0 [facility] Comment on above: Performed By: #### 2 798960, 5289101, 6043487, 25009654, 1289681, 2459438 #### [facility] Laboratory [address] [place] [address]357 MCV (RBC) [Entitic vol] 98.0 fL Normal 80.0-100.0 [facility] Comment on above: Performed By: #### 2 501047, 5620157, 3998128, 39014244, 2140444, 6977271 #### [facility] Laboratory [address] [place] [address] Platelet mean volume (Bld) [Entitic vol] 6.8 fL Normal 6.4-10.8 [facility] Comment on above: Performed By: #### 2 077685, 1557859, 4543896, 86928546, 9186192, 5821908 #### [facility] Laboratory [address] [place] [address]476 Platelets (Bld) [#/Vol] 229.0 E9/L Normal 150.0-500.0 [facility] Comment on above: Performed By: #### 2 442969, 5126781, 4347756, 00320099, 6992334, 7054091 #### [facility] Laboratory [address] [place] [address] 66667 RBC (Bld) [#/Vol] 3.2 E12/L Low 4.3-5.9 [facility] Comment on above: Performed By: #### 2 550626, 4934721, 4245220, 88947437, 9291887, 8335800 #### [facility] Laboratory [address] [place] [address] 13816 WBC corrected for nucl RBC Auto (Bld) [#/Vol] 5.6 E9/L Normal 4.0-11.0 [facility] Comment on above: Performed By: #### 2 026323, 1781161, 0865403, 59925420, 4185869, 2976434 #### [facility] Laboratory [address] [place] [address] CHEMISTRYOrdered By: Lab ROP User on 06-26-2022 Glucose [Mass/Vol] 103 mg/dL High 55 - 99 mg/dL [facility] [place] Comment on above: Result Comment: Moody vogel RN/ POC Device SN [id number] Invalid Interpretation Code [facility] Sub[place] POC User ID [id number] Invalid Interpretation Code [facility] [place] [place] POC Username GEETA ROLLE Invalid Interpretation Code [facility] [place] Subsection CHEMISTRYOrdered By: SYSTEM SYSTEM on 06-26-2022 Anion gap [Moles/Vol] 8 mmol/L Normal 6 - 16 mEq/L [facility] Calcium [Mass/Vol] 8.1 mg/dL Low 8.9 - 11. 1 mg/dL [facility] Chloride [Moles/Vol] 108 mmol/L Normal 101 - 1 11 mmol/L [facility] CO2 [Moles/Vol] 25 mmol/L Normal 21 - 31 mmol/L [facility] Creatinine [Mass/Vol] 0.8 mg/dL Normal 0.5 - 1.3 mg/dL [facility] Remisol GFR/1.73 sq M.predicted among blacks MDRD (S/P/Bld) [Vol rate/Area] mL/min/1.73 m2 Normal >=59mL/min/ 1.73 m2 [facility] Chem S GFR/1.73 sq M.predicted among non-blacks MDRD (S/P/Bld) [Vol rate/Area] mL/min/1.73 m2 Normal >=59mL/min/ 1.73 m2 [facility] Chem S Glucose [Mass/Vol] 93 mg/dL Normal 55 - 199 mg/dL [facility] Remisol Magnesium [Mass/Vol] 1.6 mg/dL Normal 1.3 - 2 .4 mg/dL [facility] Potassium [Moles/Vol] 4.3 mmol/L Normal 3.5 - 5.3 mmol/L [facility] Sodium [Moles/Vol] 137 mmol/L Normal 135 - 145 mmol/L [facility] Urea nitrogen [Mass/Vol] 9 mg/dL Normal 5 - 21 mg/dL [facility] Remisol Urea nitrogen/Creatinine [Mass ratio] 11 mg/mg Normal 10 - 20 [facility] Capillary Glucose POCon 06-04 Glucose [Mass/Vol] 109 mg/dL High 55-99 [facility] Comment on above: Result Comment: Moody vogel RN/ Performed By: #### 2 549562, 5661922, 1265309, 23094829, 1855794, 9812993 #### [facility] Laboratory [address] [place] [address] Glucose [Mass/Vol] 62 mg/dL Normal 55-99 [facility] Comment on above: Result Comment: Moody vogel RN/ Performed By: #### 2 19393422 #### [facility] Laboratory [address] [place] [address] Glucose [Mass/Vol] 92 mg/dL Normal 55-99 [facility] Comment on above: Result Comment: Moody FORREST Performed By: #### 2 702267, 0709835, 7870199, 59697749, 8360032, 4804146 #### [facility] Laboratory [address] [place] [address] Glucose [Mass/Vol] 114 mg/dL High 55-99 [facility] Comment on above: Result Comment: Moody vogel RN/ Performed By: #### 2 852065, 9083675, 2641413, 32294377, 4939299, 1781830 #### [facility] Laboratory [address] [place] [address] HEMATOLOGYOrdered By: SYSTEM SYSTEM on 06-26-2022 Basophils/100 WBC (Bld) 1.0 % Normal 0.0 - 2.0 % [facility] Basophils/Leukocytes Auto (Bld) [Pure # fraction] 0.1 E9/L Normal 0.0 - 0.2 E9/L [facility] Eosinophils/100 WBC (Bld) 7.4 % Normal 0.0 - 8.0 % [facility] Eosinophils/Leukocytes Auto (Bld) [Pure # fraction] 0.4 E9/L Normal 0.0 - 0.5 E9/L [facility] Lymphocytes/100 WBC (Bld) 25.8 % Normal 14.0 - 50.0 % [facility] Lymphocytes/Leukocytes Auto (Bld) [Pure # fraction] 1.4 E9/L Normal 1.0 - 4.0 E9/L [facility] Monocytes/100 WBC (Bld) 10.0 % Normal 4.0 - 14.0 % [facility] Monocytes/Leukocytes Auto (Bld) [Pure # fraction] 0.6 E9/L Normal 0.2 - 1.0 E9/L [facility] Neutrophils/100 WBC (Bld) 55.8 % Normal 36.0 - 75.0 % [facility] Neutrophils/Leukocytes Auto (Bld) [Pure # fraction] 3.1 E9/L Normal 2.0 - 7.5 E9/L [facility] HEMATOLOGYOrdered By: Koko Booth on 06-26-2022 Erythrocyte distribution width (RBC) [Ratio] 13.1 % Normal 10.9 - 14.2 % [facility] Hematocrit (Bld) [Volume fraction] 31.8 % Low 37.7 - 49.0 % [facility] Hemoglobin (Bld) [Mass/Vol] 10.4 g/dL Low 13.5 - 17.5 gm/dL [facility] MCH (RBC) [Entitic mass] 32.0 pg Normal 27.0 - 34.0 pg [facility] MCHC (RBC) [Mass/Vol] 32.7 g/dL Normal 31.4 - 36.0 gm/dL [facility] MCV (RBC) [Entitic vol] 98.0 fL Normal 80.0 - 100.0 fL [facility] Platelet mean volume (Bld) [Entitic vol] 6.8 fL Normal 6.4 - 10.8 fL [facility] Platelets (Bld) [#/Vol] 229.0 E9/L Normal 150.0 - 500.0 E9/L [facility] RBC (Bld) [#/Vol] 3.2 E12/L Low 4.3 - 5.9 E12/L [facility] WBC corrected for nucl RBC Auto (Bld) [#/Vol] 5.6 E9/L Normal 4.0 - 11.0 E9/L [facility] Insurance Correspondence Off [facility] 06-26-2022 Insurance Correspondence Office [id number] 5#1.00CD:127 Normal [facility] Interdisciplinary Note - Poli e Manageron 06-26-2022 Interdisciplinary Note - Adult And Pediatric Neurologist CRM spoke with patient in room. Patient is alert and oriented to self and attempts participates in discharge planning. No family in room. Patient white board updated, and CRM contact information provided. Discussed CRM will wait to talk to gen renee Swanson today and when ready for discharge will plan for return to [facility] living. Patient is on a full liquid diet and is eating at this time. CRM will update sister Elizabeth guardian later today. Normal [facility] Comment on above: Result Comment: Elec tronically Signed By: [place] BHATT, Shirin\.br\Date and Time Signed: 06/26/22 09:37 EDT Magnesiumon 06-26-2022 Magnesium [Mass/Vol] 1.6 mg/dL Normal 1.3-2.[address] [facility] Comment on above: Performed By: #### 2 176988, 2071385, 0921508, 13835937, 6412822, 6798534 #### [facility] Laboratory [address] [place] [address] Message from Medicareon 06-04 Message from Medicare [id number] 2#1.00CD:127 Normal [facility] eGFRon 06-26-2022 GFR/1.73 sq M.predicted among blacks MDRD (S/P/Bld) [Vol rate/Area] mL/min/{1.73_m2} Normal >=59 [facility] Comment on above: Order Comment: Order added by Discern Expert. Result Comment: eGFR is race adjusted. AA=. Performed By: #### 2 187072, 6793548, 0801212, 26920092, 5065906, 8443836 #### [facility] Laboratory [address] [place] [address] GFR/1.73 sq M.predicted among non-blacks MDRD (S/P/Bld) [Vol rate/Area] mL/min/{1.73_m2} Normal >=59 [facility] Comment on above: Order Comment: Order added by Discern Expert. Result Comment: Gear Nicker maria c kidney disease could be indicated at eGFR's of less than 60 mL/min/1.73m2. Kidney failure is indicated at less than 15 mL/min/1.73m2. Performed By: #### 2 507722, 1916398, 0249016, 18856837, 1939177, 5478758 #### [facility] Laboratory [address] [place] [address] Auto Diffon 06-25-2022 Basophils/100 WBC (Bld) 0.4 % Normal 0.0-2.0 [facility] Comment on above: Order Comment: Order Added by Discern Expert. Performed By: #### 2 422241, 2371727, 1592471, 47313634, 7401190, 8423310 #### [facility] Laboratory [address] [place] [address] Basophils/Leukocytes Auto (Bld) [Pure # fraction] 0.0 E9/L Normal 0.0-0.2 [facility] Comment on above: Order Comment: Order Added by Discern Expert. Performed By: #### 2 860584, 6012899, 7456973, 85714408, 7558477, 6803311 #### [facility] Laboratory [address] [place] [address] Eosinophils/100 WBC (Bld) 2.5 % Normal 0.0-8.0 [facility] Comment on above: Order Comment: Order Added by Discern Expert. Performed By: #### 2 647538, 0839263, 4020795, 18427598, 1382873, 3320453 #### [facility] Laboratory [address] [place] [address] Eosinophils/Leukocytes Auto (Bld) [Pure # fraction] 0.2 E9/L Normal 0.0-0.5 [facility] Comment on above: Order Comment: Order Added by Discern Expert. Performed By: #### 2 444555, 9094746, 6568915, 04994861, 6324878, 7575543 #### [facility] Laboratory [address] [place] [address] Lymphocytes/100 WBC (Bld) 20.1 % Normal 14.0-50.0 [facility] Comment on above: Order Comment: Order Added by Discern Expert. Performed By: #### 2 265935, 2552360, 5016680, 18789315, 8965938, 1715198 #### [facility] Laboratory [address] [place] [address] Lymphocytes/Leukocytes Auto (Bld) [Pure # fraction] 1.5 E9/L Normal 1.0-4.0 [facility] Comment on above: Order Comment: Order Added by Discern Expert. Performed By: #### 2 890544, 3663626, 4413734, 89951651, 0481078, 7213065 #### [facility] Laboratory [address] [place] [address] Monocytes/100 WBC (Bld) 9.3 % Normal 4.0-14.0 [facility] Comment on above: Order Comment: Order Added by Juancarlos Expert. Performed By: #### 2 800761, 3237840, 9220549, 50960406, 9181406, 7248138 #### [facility] Laboratory [address] [place] [address] 24769 Monocytes/Leukocytes Auto (Bld) [Pure # fraction] 0.7 E9/L Normal 0.2-1.0 [facility] Comment on above: Order Comment: Order Added by Juancarlos Expert. Performed By: #### 2 344873, 0344245, 5825868, 07025353, 6397528, 7809651 #### [facility] Laboratory [address] [place] [address] Neutrophils/100 WBC (Bld) 67.7 % Normal 36.0-75.0 [facility] Comment on above: Order Comment: Order Added by Discern Expert. Performed By: #### 2 464884, 9546847, 0886314, 54591509, 7193904, 7961860 #### [facility] Laboratory [address] [place] [address] Neutrophils/Leukocytes Auto (Bld) [Pure # fraction] 4.9 E9/L Normal 2.0-7.5 [facility] Comment on above: Order Comment: Order Added by Discern Expert. Performed By: #### 2 102231, 5028214, 6959108, 17431476, 8671800, 2400703 #### [facility] Laboratory [address] [place] [address] BMPon 06-25-2022 Anion gap [Moles/Vol] 8 mmol/L Normal 6-16 [facility] Comment on above: Performed By: #### 2 504045, 6085983, 9792839, 48849750, 8505816, 3665253 #### [facility] Laboratory [address] [place] [address] Calcium [Mass/Vol] 7.6 mg/dL Low 8.9-11.1 [facility] Comment on above: Performed By: #### 2 569662, 7601168, 5609498, 62673629, 9828726, 6538193 #### [facility] Laboratory [address] [place] [address] Chloride [Moles/Vol] 108 mmol/L Normal 101-[address] [facility] Comment on above: Performed By: #### 2 977732, 4582357, 0772725, 06209277, 0455511, 8779726 #### [facility] Laboratory [address] [place] [address] CO2 [Moles/Vol] 23 mmol/L Normal 21-31 [facility] Comment on above: Performed By: #### 2 884842, 1367043, 5670414, 75243237, 7831711, 3034704 #### [facility] Laboratory [address] [place] [address] Creatinine [Mass/Vol] 0.7 mg/dL Normal 0.5-1.3 [facility] Comment on above: Performed By: #### 2 368919, 0482685, 6461623, 38915434, 1001185, 2331169 #### [facility] Laboratory [address] [place] [address] Glucose [Mass/Vol] 105 mg/dL Normal 55-199 [facility] Comment on above: Result Comment: If t his glucose result represents a fasting glucose, interpretation should refer to the following reference range: 55-99 mg/dL Performed By: #### 2 081158, 6689325, 8376069, 91389232, 6972318, 8755211 #### [facility] Laboratory [address] [place] [address] Potassium [Moles/Vol] 3.0 mmol/L Low 3.5-5.3 [facility] Comment on above: Performed By: #### 2 658417, 9131518, 5297670, 30619267, 0079644, 7923076 #### [facility] Laboratory [address] [place] [address] Sodium [Moles/Vol] 136 mmol/L Normal 135-145 [facility] Comment on above: Performed By: #### 2 050330, 6757681, 0398828, 19363116, 0917276, 6357668 #### [facility] Laboratory [address] [place] [address] Urea nitrogen [Mass/Vol] 6 mg/dL Normal 5-21 [facility] Comment on above: Performed By: #### 2 610572, 7719281, 2758359, 81803035, 4816325, 5020926 #### [facility] Laboratory [address] [place] [address] Urea nitrogen/Creatinine [Mass ratio] 9 No Units Low 10-20 [facility] Comment on above: Performed By: #### 2 489811, 3974479, 4678055, 41558422, 8731006, 0049605 #### [facility] Laboratory [address] [place] [address] CBC w/ Auto Diffon 3 Erythrocyte distribution width (RBC) [Ratio] 13.4 % Normal 10.9-14.2 [facility] Comment on above: Performed By: #### 2 322621, 8878243, 0155968, 60610902, 9400606, 5332161 #### [facility] Laboratory [address] [place] [address] Hematocrit (Bld) [Volume fraction] 30.9 % Low 37.7-49.0 [facility] Comment on above: Performed By: #### 2 176822, 3183176, 9188492, 51672039, 0669271, 3311903 #### [facility] Laboratory [address] 8656357 Hemoglobin (Bld) [Mass/Vol] 10.5 g/dL Low 13.5-17.5 [facility] Comment on above: Performed By: #### 2 934356, 6525010, 9448284, 50233247, 0883106, 4400575 #### [facility] Laboratory [address] [place] [address] MCH (RBC) [Entitic mass] 32.6 pg Normal 27.0-34.0 [facility] Comment on above: Performed By: #### 2 035498, 9996819, 4995659, 39519893, 8795561, 3596248 #### [facility] Laboratory [address] [place] [address] MCHC (RBC) [Mass/Vol] 34.0 g/dL Normal 31.4-36.0 [facility] Comment on above: Performed By: #### 2 508820, 2781601, 5849509, 93256170, 2588171, 3825252 #### [facility] Laboratory [address] [place], [place] [address] MCV (RBC) [Entitic vol] 95.9 fL Normal 80.0-100.0 [facility] Comment on above: Performed By: #### 2 100393, 1431763, 5564185, 90028879, 1131140, 2872603 #### [facility] Laboratory [address] [place] [address] Platelet mean volume (Bld) [Entitic vol] 7.1 fL Normal 6.4-10.8 [facility] Comment on above: Performed By: #### 2 979459, 2627844, 4852855, 34753163, 1131332, 8158407 #### [facility] Laboratory [address] [place] [address] Platelets (Bld) [#/Vol] 224.0 E9/L Normal 150.0-500.0 [facility] Comment on above: Performed By: #### 2 027989, 9318922, 7855154, 59173109, 8864194, 7143729 #### [facility] Laboratory [address] [place] [address] RBC (Bld) [#/Vol] 3.2 E12/L Low 4.3-5.9 [facility] Comment on above: Performed By: #### 2 410524, [id number], [id number], [id number], [id number], [id number] #### [facility] Laboratory [address] [place] [address] WBC corrected for nucl RBC Auto (Bld) [#/Vol] 7.2 E9/L Normal 4.0-11.0 [facility] Comment on above: Performed By: #### 2 [id number], [id number], [id number], [id number], [id number] #### [facility] [address] [place] [address] CHEMISTRYOrdered By: SYSTEM SYSTEM on 06-25-2022 Anion gap [Moles/Vol] 8 mmol/L Normal 6 - 16 mEq/L [facility] Remisol Calcium [Mass/Vol] 7.6 mg/dL Low 8.9 - 11. 1 mg/dL [facility] Chloride [Moles/Vol] 108 mmol/L Normal 101 - 1 11 mmol/L [facility] CO2 [Moles/Vol] 23 mmol/L Normal 21 - 31 mmol/L [facility] Creatinine [Mass/Vol] 0.7 mg/dL Normal 0.5 - 1.3 mg/dL [facility] Remisol GFR/1.73 sq M.predicted among blacks MDRD (S/P/Bld) [Vol rate/Area] mL/min/1.73 m2 Normal >=59mL/min/ 1.73 m2 [facility] Chem S GFR/1.73 sq M.predicted among non-blacks MDRD (S/P/Bld) [Vol rate/Area] mL/min/1.73 m2 Normal >=59mL/min/ 1.73 m2 [facility] Chem S Glucose [Mass/Vol] 105 mg/dL Normal 55 - 199 mg/dL [facility] Remisol Potassium [Moles/Vol] 3.0 mmol/L Low 3.5 - 5.3 mmol/L [facility] Remisol Sodium [Moles/Vol] 136 mmol/L Normal 135 - 145 mmol/L [facility] Remisol Urea nitrogen [Mass/Vol] 6 mg/dL Normal 5 - 21 mg/dL [facility] Remisol Urea nitrogen/Creatinine [Mass ratio] 9 mg/mg Low 10 - 20 [facility] Remisol Capillary Glucose POCon 06-04 Glucose [Mass/Vol] 95 mg/dL Normal 55-99 [facility] Comment on above: Result Comment: Moody FORREST Performed By: #### 2 [id number] #### [facility] [address] [place] [address] Glucose [Mass/Vol] 115 mg/dL High 55-99 [facility] Comment on above: Result Comment: Moody FORREST Performed By: #### 2 [id number], [id number], [id number] #### [facility] [address] [place] [address] Glucose [Mass/Vol] 89 mg/dL Normal 55-99 [facility] Comment on above: Result Comment: Moody FORREST Performed By: #### 2 [id number] ####[facility] [address] [place] [address] Glucose [Mass/Vol] 104 mg/dL High 55-99 [facility] Comment on above: Result Comment: Moody FORREST Performed By: #### 2 [id number] #### [facility] [address] [place] [address] HEMATOLOGYOrdered By: SYSTEM SYSTEM on 06-25-2022 Basophils/100 WBC (Bld) 0.4 % Normal 0.0 - 2.0 % [facility] Basophils/Leukocytes Auto (Bld) [Pure # fraction] 0.0 E9/L Normal 0.0 - 0.2 E9/L [facility] Eosinophils/100 WBC (Bld) 2.5 % Normal 0.0 - 8.0 % [facility] Eosinophils/Leukocytes Auto (Bld) [Pure # fraction] 0.2 E9/L Normal 0.0 - 0.5 E9/L [facility] Lymphocytes/100 WBC (Bld) 20.1 % Normal 14.0 - 50.0 % [facility] Lymphocytes/Leukocytes Auto (Bld) [Pure # fraction] 1.5 E9/L Normal 1.0 - 4.0 E9/L [facility] Monocytes/100 WBC (Bld) 9.3 % Normal 4.0 - 14.0 % [facility] Monocytes/Leukocytes Auto (Bld) [Pure # fraction] 0.7 E9/L Normal 0.2 - 1.0 E9/L [facility] Neutrophils/100 WBC (Bld) 67.7 % Normal 36.0 - 75.0 % [facility] Neutrophils/Leukocytes Auto (Bld) [Pure # fraction] 4.9 E9/L Normal 2.0 - 7.5 E9/L [facility] HEMATOLOGYOrdered By: Mavis Ramírez on 06-25-2022 Erythrocyte distribution width (RBC) [Ratio] 13.4 % Normal 10.9 - 14.2 % [facility] Hematocrit (Bld) [Volume fraction] 30.9 % Low 37.7 - 49.0 % [facility] Hemoglobin (Bld) [Mass/Vol] 10.5 g/dL Low 13.5 - 17.5 gm/dL [facility] MCH (RBC) [Entitic mass] 32.6 pg Normal 27.0 - 34.0 pg [facility] MCHC (RBC) [Mass/Vol] 34.0 g/dL Normal 31.4 - 36.0 gm/dL [facility] MCV (RBC) [Entitic vol] 95.9 fL Normal 80.0 - 100.0 fL [facility] Platelet mean volume (Bld) [Entitic vol] 7.1 fL Normal 6.4 - 10.8 fL [facility] Platelets (Bld) [#/Vol] 224.0 E9/L Normal 150.0 - 500.0 E9/L [facility] RBC (Bld) [#/Vol] 3.2 E12/L Low 4.3 - 5.9 E12/L [facility] WBC corrected for nucl RBC Auto (Bld) [#/Vol] 7.2 E9/L Normal 4.0 - 11.0 E9/L [facility] Insurance Correspondence Off iceon 06-25-2022 Insurance Correspondence Office [phone] [id number] 7#[id number]:[id number] Normal [facility] Progress Note-Nurseon 2022 Progress Note-Nurse I concur with BUSINESS CONSULT documentation Normal [facility] Progress Note-Nurse Patient sat up at a full 90 degree angle and assessed for swallowing. A small sip of water administered via cup and patient tolerated well. No coughing or signs of aspiration noted. Patient then given a straw and continues to tolerate water with no complications. Plan of care discussed with the BUSINESS CONSULT and ordered PO medications will be administered with water. Patient denies nausea and GI upset both before and after drinking liquids. Normal 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 Subjective No acute events overnight. No further seizures, no nausea or vomiting, no abdominal pain. Tolerating full liquid diet. Denies passing gas, no bowel movements. Having urinary retention this morning Objective Vitals & Measurements T: 36.9 ?C(Axillary) TMIN: 36.4 ?C(Axillary) TMAX: 37.1 ?C(Axillary) HR: 65(Monitored) RR: 18 BP: 126/75 SpO2: 98% WT: 84.7 kg Intake & Output This visit (24 hour periods starting at 07:00 EDT) 06/25/22 * 06/24/22 06/23/22 Total Summary Intake mL 237 1,298.68 -- Output mL 550 -- 90 Fluid Balance -313 1,298.68 -90 Intake (5) Dextrose 5% in Lactated Ringers intravenous solution 1,000 mL mL -- 883.98 -- Ensure mL 237 237 -- Sodium Chloride 0.9% intravenous solution 250 mL mL -- 12.7 -- Sodium Chloride 0.9%, levetiracetam mL -- 115 -- glucose mL -- 50 -- Total 237 1,298.68 -- Output (2) Gastric Tube Output-Initial mL -- -- 90 Urine Voided mL 550 -- -- Total 550 -- 90 Counts (2) Diaper Count -- 3 -- Stool Count -- 1 -- * This column has not completed the indicated time period. Physical Exam Gen: sleeping on initial assessment, but awakens easily and interacts Cv: regular rate Pulm: respirations even and unlabored on room air Abdomen: soft, nondistended, nontender Extremities: no cyanosis or edema Neuro: at baseline, interacts appropriately Lab Results WBC: 7.2 E9/L (06/25/22 06:38:00) RBC: 3.2 E12/L Low (06/25/22 06:38:00) HGB: 10.5 gm/dL Low (06/25/22 06:38:00) Hct: 30.9 % Low (06/25/22 06:38:00) MCV: 95.9 fL (06/25/22 06:38:00) MCH: 32.6 pg (06/25/22 06:38:00) MCHC: 34 gm/dL (06/25/22 06:38:00) RDW: 13.4 % (06/25/22 06:38:00) Platelet: 224 E9/L (06/25/22 06:38:00) MPV: 7.1 fL (06/25/22 06:38:00) Neutro Auto: 67.7 % (06/25/22 06:38:00) Lymph Auto: 20.1 % (06/25/22 06:38:00) [place] Auto: 9.3 % (06/25/22 06:38:00) Eos Auto: 2.5 % (06/25/22 06:38:00) Basophil Auto: 0.4 % (06/25/22 06:38:00) Neutro Absolute: 4.9 E9/L (06/25/22 06:38:00) Lymph Absolute: 1.5 E9/L (06/25/22 06:38:00) [place] Absolute: 0.7 E9/L (06/25/22 06:38:00) Eos Absolute: 0.2 E9/L (06/25/22 06:38:00) Basophil Absolute: 0 E9/L (06/25/22 06:38:00) Glucose Lvl: 105 mg/dL (06/25/22 06:38:00) BUN: 6 mg/dL (06/25/22 06:38:00) Creatinine: 0.7 mg/dL (06/25/22 06:38:00) eGFR: >60 (06/25/22 06:38:00) eGFR AA: >60 (06/25/22 06:38:00) BUN/Creat Ratio: 9 Low (06/25/22 06:38:00) Sodium Lvl: 136 mmol/L (06/25/22 06:38:00) Potassium Lvl: 3 mmol/L Low (06/25/22 06:38:00) Chloride: 108 mmol/L (06/25/22 06:38:00) CO2: 23 mmol/L (06/25/22 06:38:00) AGAP: 8 mEq/L (06/25/22 06:38:00) Calcium Lvl: 7.6 mg/dL Low (06/25/22 06:38:00) Glucose Cap: 89 mg/dL (06/25/22 11:42:00) POC Device SN: [id number] (06/25/22 11:42:00) POC User ID: [id number] (06/25/22 11:42:00) POC Username: POC Username (06/25/22 11:42:00) Assessment/Plan 1. 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 Epilepsy (G40.909: Epilepsy, unspecified, not intractable, without status epilepticus) 3. BPH with urinary obstruction (N40.1: Benign prostatic hyperplasia with lower urinary tract symptoms) 4. Development delay (R62.50: Unspecified lack of expected normal physiological development in childhood) 5. Hypokalemia (E87.6: Hypokalemia) Orders: Dextrose 5% in Lactated Ringers intravenous solution, Soln-IV, Misc, Once, Stop date 06/24/22 12:57:35 EDT, Physician Stop, 06/24/22 12:57:35 EDT enoxaparin, 40 mg = 0.4 mL, Injection, SubCutaneous, q12hr for 30 day(s), Stop date 07/25/22 12:59:00 EDT, Routine, Start date 06/25/22 13:00:00 EDT, 06/25/22 12:05:00 EDT Ensure, 237 mL, Liquid, Oral, TIDWM, Routine, Start date 06/24/22 17:00:00 EDT, Over Ice finasteride, 5 mg = 1 tab(s), Tab, Oral, Bedtime, Routine, Start date 06/24/22 21:00:00 EDT, 06/24/22 14:28:00 EDT glucose, 50 mL, Soln-IV, IV Push, Once, Stop date 06/24/22 13:00:00 EDT, Routine, Start date 06/24/22 13:00:00 EDT glucose, Soln-IV, Misc, Once, Stop date 06/24/22 12:56:55 EDT, Physician Stop, 06/24/22 12:56:55 EDT ketorolac, 15 mg = 1 mL, Injection, IV Push, q6hr PRN Pain for 5 day(s), Stop date 06/29/22 14:11:00 EDT, Routine, Start date 06/24/22 14:12:00 EDT, 06/24/22 14:12:00 EDT lacosamide, 150 mg = 3 tab(s), Tab, Oral, BID, Routine, Start date 06/24/22 21:00:00 EDT, 06/24/22 14:28:00 EDT lamotrigine, 600 mg = 3 tab(s), Tab, Oral, Bedtime, Routine, Start date 06/24/22 21:00:00 EDT, 06/24/22 14:06:00 EDT lamotrigine, 400 mg = 2 tab(s), Tab, Oral, Daily, Routine, Start date 06/25/22 9:00:00 EDT, 06/24/22 14:06:00 EDT latanoprost ophthalmic, 1 drop(s), Soln-Opth, OPTH, Bedtime, Routine, Start date 06/24/22 21:00:00 EDT, both eyes levetiracetam, 2,000 mg = 4 ta (more content not included)... Normal [facility] Comment on above: Result Comment: Elec tronically Signed By: Henrry MOELLER, Kari Mccollum\.br\Date and Time Signed: 06/25/22 12:09 EDT XR Abdomen 1 Viewon 06-26-19 XR Abdomen 1 View Exam Date/Time: 06/25/2022 13:49 EDT Reason for Exam: assess abdominal distention s/p resuming diet;Other (please specify) Report IMPRESSION: There are multiple air-filled loops of bowel which may represent gastroenteritis. CLINICAL HISTORY: assess abdominal distention s/p resuming diet COMPARISON: NONE. KUB FINDINGS: There are no distended loops of bowel. There is no evidence of obstruction. There are multiple air-filled loops of bowel which may represent gastroenteritis. There are no acute osseous changes. Ordering Provider: Kari Sales FINAL REPORT Dictated: 06/25/2022 1:53 pm Mario Sun MD, V. Signed (Electronic Signature): 06/25/2022 1:53 pm Signed by: Mario Sun MD, V. Transcribed by: CAROLA Technologist: JOANNA Technical Comments Radiation Dose: Ka,r in mGy = na DAP = na Normal [facility] eGFRon 06-25-2022 GFR/1.73 sq M.predicted among blacks MDRD (S/P/Bld) [Vol rate/Area] mL/min/{1.73_m2} Normal >=59 [facility] Comment on above: Order Comment: Order added by Discern Expert. Result Comment: eGFR is race adjusted. AA=. Performed By: #### 2 [id number], [id number], [id number], [id number], 3238004, [id number] #### [facility] Laboratory [address] [place] [address] GFR/1.73 sq M.predicted among non-blacks MDRD (S/P/Bld) [Vol rate/Area] mL/min/{1.73_m2} Normal >=59 [facility] Comment on above: Order Comment: Order added by Discern Expert. Result Comment: Gear Nicker maria c kidney disease could be indicated at eGFR's of less than 60 mL/min/1.73m2. Kidney failure is indicated at less than 15 mL/min/1.73m2. Performed By: #### 2 [id number], [id number], [id number], [id number], 1713230, [id number] #### [facility] Laboratory [address] [place] [address] Auto Diffon 06-24-2022 Basophils/100 WBC (Bld) 0.5 % Normal 0.0-2.0 [facility] Comment on above: Order Comment: Order Added by Discern Expert. Performed By: #### 2 [id number] #### [facility] Laboratory [address] [place] [address] Basophils/Leukocytes Auto (Bld) [Pure # fraction] 0.1 E9/L Normal 0.0-0.2 [facility] Comment on above: Order Comment: Order Added by Discern Expert. Performed By: #### 2 [id number] #### [facility] [address] [place] [address] Eosinophils/100 WBC (Bld) 0.8 % Normal 0.0-8.0 [facility] Comment on above: Order Comment: Order Added by Discern Expert. Performed By: #### 2 [id number] #### [facility] [address] [place] [address] Eosinophils/Leukocytes Auto (Bld) [Pure # fraction] 0.1 E9/L Normal 0.0-0.5 [facility] Comment on above: Order Comment: Order Added by Discern Expert. Performed By: #### 2 [id number] #### [facility] [address] [place] [address] Lymphocytes/100 WBC (Bld) 10.0 % Low 14.0-50.0 [facility] Comment on above: Order Comment: Order Added by Discern Expert. Performed By: #### 2 [id number] #### [facility] [address] [place] [address] Lymphocytes/Leukocytes Auto (Bld) [Pure # fraction] 1.2 E9/L Normal 1.0-4.0 [facility] Comment on above: Order Comment: Order Added by Discern Expert. Performed By: #### 2 [id number] #### [facility] [address] [place] [address] Monocytes/100 WBC (Bld) 6.3 % Normal 4.0-14.0 [facility] Comment on above: Order Comment: Order Added by Discern Expert. Performed By: #### 2 [id number] #### [facility] [address] [place] [address] Monocytes/Leukocytes Auto (Bld) [Pure # fraction] 0.7 E9/L Normal 0.2-1.0 [facility] Comment on above: Order Comment: Order Added by Discern Expert. Performed By: #### 2 [id number] #### [facility] [address] [place] [address] Neutrophils/100 WBC (Bld) 82.4 % High 36.0-75.0 [facility] Comment on above: Order Comment: Order Added by Discern Expert. Performed By: #### 2 [id number] #### [facility] [address] [place] [address] Neutrophils/Leukocytes Auto (Bld) [Pure # fraction] 9.5 E9/L High 2.0-7.5 [facility] Comment on above: Order Comment: Order Added by Discern Expert. Performed By: #### 2 [id number] #### [facility] [address] [place] [address] BMPon 06-24-2022 Anion gap [Moles/Vol] 16 mmol/L Normal 6-16 [facility] Comment on above: Performed By: #### 2 [id number] #### [facility] [address] [place] [address] Calcium [Mass/Vol] 8.4 mg/dL Low 8.9-11.1 [facility] Comment on above: Performed By: #### 2 [id number] #### [facility] [address] [place] [address] Chloride [Moles/Vol] 108 mmol/L Normal 101-[address] [facility] Comment on above: Performed By: #### 2 [id number] #### [facility] [address] [place] [address] CO2 [Moles/Vol] 18 mmol/L Low 21-31 [facility] Comment on above: Performed By: #### 2 [id number] #### [facility] [address] [place] [address] Creatinine [Mass/Vol] 0.8 mg/dL Normal 0.5-1.3 [facility] Comment on above: Performed By: #### 2 [id number] #### [facility] [address] [place] [address] Glucose [Mass/Vol] 68 mg/dL Normal 55-199 [facility] Comment on above: Result Comment: If t his glucose result represents a fasting glucose, interpretation should refer to the following reference range: 55-99 mg/dL Performed By: #### 2 [id number] #### [facility] [address] [place] [address] Potassium [Moles/Vol] 3.5 mmol/L Normal 3.5-5.3 [facility] Comment on above: Performed By: #### 2 [id number] #### [facility] [address] [place] [address] Sodium [Moles/Vol] 138 mmol/L Normal 135-145 [facility] Comment on above: Performed By: #### 2 [id number] #### [facility] [address] [place] [address] Urea nitrogen [Mass/Vol] 8 mg/dL Normal 5-21 [facility] Comment on above: Performed By: #### 2 [id number] #### [facility] [address] [place] [address] Urea nitrogen/Creatinine [Mass ratio] 10 No Units Normal 10-20 [facility] Comment on above: Performed By: #### 2 [id number] #### [facility] [address] [place] [address] CBC w/ Auto Diffon Erythrocyte distribution width (RBC) [Ratio] 13.3 % Normal 10.9-14.2 [facility] Comment on above: Performed By: #### 2 [id number] #### [facility] [address] [place] [address] Hematocrit (Bld) [Volume fraction] 34.0 % Low 37.7-49.0 [facility] Comment on above: Performed By: #### 2 [id number] #### [facility] [address] [place] [address] Hemoglobin (Bld) [Mass/Vol] 11.3 g/dL Low 13.5-17.5 [facility] Comment on above: Performed By: #### 2 [id number] #### [facility] [address] [place] [address] MCH (RBC) [Entitic mass] 32.1 pg Normal 27.0-34.0 [facility] Comment on above: Performed By: #### 2 [id number] #### [facility] [address] [place] [address] MCHC (RBC) [Mass/Vol] 33.2 g/dL Normal 31.4-36.0 [facility] Comment on above: Performed By: #### 2 [id number] #### [facility] [address] [place] [address] MCV (RBC) [Entitic vol] 96.5 fL Normal 80.0-100.0 [facility] Comment on above: Performed By: #### 2 [id number] #### [facility] [address] [place] [address] Platelet mean volume (Bld) [Entitic vol] 7.4 fL Normal 6.4-10.8 [facility] Comment on above: Performed By: #### 2 [id number] #### [facility] [address] [place] [address] Platelets (Bld) [#/Vol] 244.0 E9/L Normal 150.0-500.0 [facility] Comment on above: Performed By: #### 2 [id number] #### [facility] [address] [place] [address] RBC (Bld) [#/Vol] 3.5 E12/L Low 4.3-5.9 [facility] Comment on above: Performed By: #### 2 [id number] #### [facility] [address] [place] [address] WBC corrected for nucl RBC Auto (Bld) [#/Vol] 11.6 E9/L High 4.0-11.0 [facility] Comment on above: Performed By: #### 2 [id number] #### [facility] [address] [place] [address] CHEMISTRYOrdered By: SYSTEM SYSTEM on 06-24-2022 Magnesium [Mass/Vol] 1.4 mg/dL Normal 1.3 - 2 .4 mg/dL [facility] Remisol Capillary Glucose POCon 06-04 Glucose [Mass/Vol] 104 mg/dL High 55-99 [facility] Comment on above: Result Comment: Moody FORREST Performed By: #### 2 [id number] ####[facility] [address] [place] [address] Glucose [Mass/Vol] 155 mg/dL High 55-99 [facility] Comment on above: Result Comment: Moody vogel RN/ Performed By: #### 2 [id number], [id number], [id number], [id number], [id number], [id number] #### [facility] [address] [place] [address] Glucose [Mass/Vol] 52 mg/dL Low 55-99 [facility] Comment on above: Result Comment: Moody vogel RN/ Performed By: #### 2 [id number] ####[facility] [address] [place] [address] Interdisciplinary Note - Poli e Manageron 06-24-2022 Interdisciplinary Note - Adult And Pediatric Neurologist CRM spoke with patient and his sister Elizabeth in room. Waiting DR Sales to see today. Patient is alert and oriented to self. Sister Elizabeth is guardian. Whiteboard updated and CRM contact # provided. Patients sister verified PCP, insurance and DME. [facility] [place] and she states they will come to transport back at discharge. Patient has an NG tube to suction. Sister states he was admitted to [facility] on 06/21 and she requested he be transferred here as gen sx did procedures here 1 year ago. Reviewed medicare rights, she denies any questions and signed form. gave her a copy of signed form. Normal [facility] Comment on above: Result Comment: Elec tronically Signed By: [place] BHATT, Shirin\.br\Date and Time Signed: 06/24/22 17:11 EDT Magnesiumon 06-24-2022 Magnesium [Mass/Vol] 1.4 mg/dL Normal 1.3-2.[address] [facility] Comment on above: Performed By: #### 2 [id number] #### [facility] [address] [place] [address] Reference Laboratory Testing Ordered By: Generated DomainUser on 06-24-2022 lamoTRIgine [Mass/Vol] microgram/mL Low 2.0-2 0.0mcg /mL [facility] Comment on above: Result Comment: Dete ction Limit = 1.0 Performed at: [address] [id number] MD [place] Espinal PHENobarbital [Mass/Vol] 15 microgram/mL Invalid Interpretation Code 15-40mcg/mL [facility] Comment on above: Result Comment: Dete ction Limit = 3 Performed at: [address] [id number] MD [place] Espinal Primidone [Mass/Vol] Not detected Invalid Interpretation Code 5.0-12.0 [facility] Comment on above: Result Comment: Ve rified by repeat analysis Detection Limit = 0.3 <0.3 indicates None Detected XR Abdomen 1 Viewon 06-25-19 XR Abdomen 1 View Exam Date/Time: 06/24/2022 07:58 EDT Reason for Exam: NG tube placement Report IMPRESSION: There is an NG tube with the proximal sidehole projecting in the GE junction, recommend advancing the NG tube 5 cm EXAMINATION: XR Abdomen 1 View CLINICAL HISTORY: NG tube placement tube placement COMPARISONS: NONE AVAILABLE TECHNIQUE: Limited anterior view of the upper abdomen. FINDINGS: Limited study. There is an NG tube with the proximal sidehole projecting in the GE junction, recommend advancing the NG tube 5 cm There are mildly prominent air-filled loops of colon. No abnormal calcifications. The soft tissues are within normal limits. There are no radiopaque foreign bodies. Ordering Provider: Kari Sales FINAL REPORT Dictated: 06/24/2022 8:13 am Mario Sun MD, V. Signed (Electronic Signature): 06/24/2022 8:13 am Signed by: Mario Sun MD, V. Transcribed by: CAROLA Technologist: LAURA Technical Comments Radiation Dose: Ka,r in mGy = na DAP = na Normal [facility] eGFRon 06-24-2022 GFR/1.73 sq M.predicted among blacks MDRD (S/P/Bld) [Vol rate/Area] mL/min/{1.73_m2} Normal >=59 [facility] [facility] Comment on above: Order Comment: Order added by Discern Expert. Result Comment: eGFR is race adjusted. AA=. Performed By: #### 2 [id number] #### [facility] [address] [place] [address] GFR/1.73 sq M.predicted among non-blacks MDRD (S/P/Bld) [Vol rate/Area] mL/min/{1.73_m2} Normal >=59 [facility] Comment on above: Order Comment: Order added by Discern Expert. Result Comment: Gear Nicker maria c kidney disease could be indicated at eGFR's of less than 60 mL/min/1.73m2. Kidney failure is indicated at less than 15 mL/min/1.73m2. Performed By: #### 2 [id number] #### [facility] [address] [place] [address] CBC auto differentialon 06-04 Absolute Eos # 0.25 [facility] Absolute Immature Granulocyte [facility] Absolute Lymph # 1.16 [facility] Absolute [place] # 0.48 [facility] Basophils (Bld) [#/Vol] 0.04 10*3/uL [facility] Basophils/100 WBC (Bld) 1 % 0 - 2 % [facility] Eosinophils/100 WBC (Bld) 4 % 1 - 4 % [facility] Hematocrit (Bld) [Volume fraction] 29.9 % Low 40.7 - 50.3 % [facility] Hemoglobin (Bld) [Mass/Vol] 9.8 g/dL Low 13.0 - 17.0 g/dL [facility] Immature granulocytes/100 WBC (Bld) 0 % 0 [facility] Interpretation and review of laboratory results Abnormal [facility] Lymphocytes/100 WBC (Bld) 16 % Low 24 - 43 % [facility] MCH (RBC) [Entitic mass] 33.2 pg 25.2 - 33.5 pg [facility] MCHC (RBC) [Mass/Vol] 32.8 g/dL 28.4 - 34.8 g/dL [facility] MCV (RBC) [Entitic vol] 101.4 fL 82.6 - 102.9 fL [facility] Monocytes/100 WBC (Bld) 7 % 3 - 12 % [facility] NRBC Automated 0.0 0.0 per 100 WBC [facility] Platelet distribution width (Bld) [Ratio] 12.7 % 11.8 - 14.4 % [facility] Platelet mean volume (Bld) [Entitic vol] 8.9 fL 8.1 - 13.5 fL [facility] Platelets (Bld) [#/Vol] 191 10*3/uL [facility] RBC (Bld) [#/Vol] 2.95 10*6/uL Low 4.21 - 5.7 7 m/uL [facility] Segmented neutrophils/100 WBC (Bld) 72 % High 36 - 65 % [facility] Segs Absolute 5.18 [facility] WBC (Bld) [#/Vol] 7.1 10*3/uL [facility]NOTE 3] CBC with Diffon 06-23-2022 Abs. Basophil 0.04 k/uL Normal 0.00-0.20 [facility] Comment on above: Performed By: #### YULIYA COUGHLIN, CDP #### [facility] [address] [place], [place] [id number] Control Cabinet Assembler: David Montez MD Abs.Imm.Granulocyte <0.03 Normal 0.00-0.30 [facility] Comment on above: Performed By: #### YULIYA COUGHLIN, CDP #### [address] [place] [id number] Control Cabinet Assembler: David Montez MD Abs.Neutrophil (Seg) 5.18 k/uL Normal 1.50-8.10 [facility] Comment on above: Performed By: #### YULIYA COUGHLIN, CDP #### [address] [place], [place] [phone] Control Cabinet Assembler: David Montez MD Basophils/100 WBC (Bld) 1 % Normal 0-2 [facility] Comment on above: Performed By: #### YULIYA COUGHLIN, CDP #### [address] [place], [place] [phone] Control Cabinet Assembler: David Montez MD Eosinophils (Bld) [#/Vol] 0.25 10*3/uL Normal 0.00-0.44 [facility] Comment on above: Performed By: #### YULIYA COUGHLIN, CDP #### [facility] [address] [place] [address] Dr[address] [place], [place] [id number] Control Cabinet Assembler: David Montez MD Eosinophils/100 WBC (Bld) 4 % Normal 1-4 [facility] Comment on above: Performed By: #### YULIYA COUGHLIN, CDP #### [facility] [address] [place] [id number] Control Cabinet Assembler: David Montez MD Erythrocyte distribution width (RBC) [Ratio] 12.7 % Normal 11.8-14.4 [facility] Comment on above: Performed By: #### YULIYA COUGHLIN, CDP #### [facility] [address] [place] [id number] Control Cabinet Assembler: David Montez MD Hematocrit (Bld) [Volume fraction] 29.9 % Low 40.7-50.3 [facility] Comment on above: Performed By: #### YULIYA COUGHLIN, CDP #### [address] [place] [id number] Control Cabinet Assembler: David Montez MD Hemoglobin (Bld) [Mass/Vol] 9.8 g/dL Low 13.0-17.0 [facility] Comment on above: Performed By: #### YULIYA COUGHLIN, CDP #### [address] [place] [address] Control Cabinet Assembler: David Montez MD Immature granulocytes/100 WBC (Bld) 0 % Normal 0 [facility] Comment on above: Performed By: #### YULIYA COUGHLIN, CDP #### [address] [place], [facility]83 Control Cabinet Assembler: David Montez MD Lymphocytes (Bld) [#/Vol] 1.16 10*3/uL Normal 1.10-3.70 [facility] Comment on above: Performed By: #### YULIYA COUGHLIN, CDP #### [address] [place] [address] Control Cabinet Assembler: David Montez MD Lymphocytes/100 WBC (Bld) 16 % Low 24-43 [facility] Comment on above: Performed By: #### YULIYA COUGHLIN, CDP #### [facility] [address] [place], [place] [address] Control Cabinet Assembler: David Montez MD MCH (RBC) [Entitic mass] 33.2 pg Normal 25.2-33.5 [facility] Comment on above: Performed By: #### YULIYA COUGHLIN, CDP #### [address] [place], [place] [address] Control Cabinet Assembler: David Montez MD MCHC (RBC) [Mass/Vol] 32.8 g/dL Normal 28.4-34.8 [facility] Comment on above: Performed By: #### YULIYA COUGHLIN, CDP #### [address] [place] [address] Control Cabinet Assembler: David Montez MD MCV (RBC) [Entitic vol] 101.4 fL Normal 82.6-102.9 [facility] Comment on above: Performed By: #### YULIYA COUGHLIN, CDP #### [address] [place], [place] [address] Control Cabinet Assembler: David Montez MD Monocytes (Bld) [#/Vol] 0.48 10*3/uL Normal 0.10-1.20 [facility] Comment on above: Performed By: #### YULIYA COUGHLIN, CDP #### [address] [place], [facility]83 Control Cabinet Assembler: David Montez MD Monocytes/100 WBC (Bld) 7 % Normal 3-12 [facility] Comment on above: Performed By: #### YULIYA COUGHLIN, CDP #### [facility] [address] [place] [address] Control Cabinet Assembler: David Montez MD Neutrophil (Seg) 72 % High 36-65 [facility] Comment on above: Performed By: #### R EJEC, IPF, CDP #### [facility] [address] [place], [place] [phone] Control Cabinet Assembler: David Montez MD NRBC Automated 0.0 per 100 WBC Normal 0.0 [facility] Comment on above: Performed By: #### R ANNE MARIE IPF, CDP #### [facility] [address] [place], [facility]83 Control Cabinet Assembler: David Montez MD Platelet mean volume (Bld) [Entitic vol] 8.9 fL Normal 8.1-13.5 [facility] Comment on above: Performed By: #### R YULIYA KENNEY, CDP #### [facility] [address] [place] [address] Dr. [place], [facility]83 Control Cabinet Assembler: David Montez MD Platelets (Bld) [#/Vol] 191 10*3/uL Normal 138-453 [facility] Comment on above: Performed By: #### YULIYA COUGHLIN, CDP #### [facility] [address] [place] [address] Dr. [place], [place] [phone] Control Cabinet Assembler: David Montez MD RBC (Bld) [#/Vol] 2.95 10*6/uL Low 4.21-5.77 [facility] Comment on above: Performed By: #### YULIYA COUGHLIN, CDP #### [facility] [address] [place] [address] Dr. [place], [facility]83 Control Cabinet Assembler: David Montez MD WBC (Bld) [#/Vol] 7.1 10*3/uL Normal 3.5-11.3 [facility] Comment on above: Performed By: #### R ANNE MARIE IPF, CDP #### [address] [place] [address] Control Cabinet Assembler: David Montez MD EKG Rhythm Stripon 3 [facility] LAB [facility] MP [facility] Gastrointestinal Panel, Gurwinder frank 06-23-2022 Campylobacter sp DNA POLO+probe Nom (Unsp spec) NEGATIVE: No Campylobacter spp. (jejuni or coli) DNA Detected [facility] E. coli enterotoxigenic eltA+estB genes POLO+probe Ql (Stl) NEGATIVE: No Enterotoxigenic E. coli (ETEC) Heat-labile and heat-stable (LT/ST) DNA Detected [facility] P. shigelloides DNA POLO+probe Ql (Stl) Negative [facility] Salmonella sp DNA POLO+probe Ql (Unsp spec) Negative [facility] Shiga toxin stx gene POLO+probe Nom (Unsp spec) Negative [facility] Shigella sp DNA POLO+probe Ql (Unsp spec) Negative [facility] Specimen Description .FECES [facility] V. cholerae+parahaemolyti cus rfbL+trkH+tnaA genes POLO+probe Ql (Stl) NEGATIVE: No Vibrio (V. vulnificus, V, parahaemolyticus and V. cholerae) DNA Detected [facility] Y. enterocolitica recN gene POLO+probe Ql (Stl) Negative [facility] Stool PCR [place] 06-24-19 Campylobacter sp PCR NEGATIVE: No Campylobacter spp. (jejuni or coli) DNA Detected [facility] Comment on above: Performed By: #### YULIYA COUGHLIN, CDP #### [facility] [address] [place] [address] [place] [address] Control Cabinet Assembler: David Montez MD E coli enterotox PCR NEGATIVE: No Enterotoxigenic E. coli (ETEC) Heat-labile and heat-stable (LT/ST) Normal EECNEG [facility] Comment on above: Result Comment: DNA Detected Performed By: #### YULIYA COUGHLIN, CDP #### [facility] [address] [place] [address] Control Cabinet Assembler: David Montez MD Plesiomonas sp PCR Negative Normal [facility] Comment on above: Performed By: #### YULIYA COUGHLIN, CDP #### [facility] [address] [place], [place] [phone] Control Cabinet Assembler: David Montez MD Salmonella sp PCR Negative Normal SALNEG [facility] Comment on above: Performed By: #### R ANNE MARIE, IPF, CDP #### [facility] [address] [place], [place] [phone] Control Cabinet Assembler: David Montez MD Shigatoxin gene PCR Negative Normal STXNEG [facility] Comment on above: Performed By: #### R YULIYA KENNEY, CDP #### [facility] [address] [place], [place] [phone] Control Cabinet Assembler: David Montez MD Shigella sp PCR Negative Normal [facility] Comment on above: Performed By: #### YULIYA COUGHLIN, CDP #### [facility] [address] [place] [address] Dr. [place], [place] [phone] Control Cabinet Assembler: David Montez MD Vibrio sp PCR NEGATIVE: No Vibrio (V. vulnificus, V, parahaemolyticus and V. cholerae) DNA Normal VIBNEG [facility] Comment on above: Result Comment: Dete cted Performed By: #### YULIYA COUGHLIN, CDP #### [address] [place] [address] Control Cabinet Assembler: David Montez MD Yersinia gene PCR Negative Normal YERNEG [facility] Comment on above: Performed By: #### R YULIYA KENNEY, CDP #### [facility] [address] [place] [address] Dr. [place], [place] [phone] Control Cabinet Assembler: David Montez MD XR ABDOMEN (KUB) (SINGLE AP VIEW)on 06-23-2022 XR ABDOMEN (KUB) (SINGLE AP VIEW) EXAMINATION: ONE SUPINE XRAY VIEW(S) OF THE ABDOMEN 06/23/2022 8:30 am COMPARISON: Abdominal radiograph 06/22/2022, CT abdomen pelvis 06/21/2022 HISTORY: ORDERING SYSTEM PROVIDED HISTORY: progress study TECHNOLOGIST PROVIDED HISTORY: progress study FINDINGS: Lines and tubes: Partially visualized enteric tube. Bowel gas pattern: There remain a few dilated loops of small bowel within the central abdomen, measuring up to 4.8 cm. Enteric contrast is seen within the rectum. Soft tissue organ contours: Normal. Bones: No acute osseous findings. IMPRESSION: Persistent dilated loops of small bowel, compatible with known small bowel obstruction. Enteric contrast is seen within the rectum. Interpreted by: Mor Louis MD Signed by: Mor Louis MD 06/23/22 Final result Normal [facility] Persistent dilated loops of small bowel, compatible with known small bowel obstruction. Enteric contrast is seen within the rectum. [facility] EXAMINATION: ONE SUPINE XRAY VIEW(S) OF THE ABDOMEN 06/23/2022 8:30 am COMPARISON: Abdominal radiograph 06/22/2022, CT abdomen pelvis 06/21/2022 HISTORY: ORDERING SYSTEM PROVIDED HISTORY: progress study TECHNOLOGIST PROVIDED HISTORY: progress study FINDINGS: Lines and tubes: Partially visualized enteric tube. Bowel gas pattern: There remain a few dilated loops of small bowel within the central abdomen, measuring up to 4.8 cm. Enteric contrast is seen within the rectum. Soft tissue organ contours: Normal. Bones: No acute osseous findings. [facility] Mor Louis MD - 06/23/2022 EXAMINATION: ONE SUPINE XRAY VIEW(S) OF THE ABDOMEN 06/23/2022 8:30 am COMPARISON: Abdominal radiograph 06/22/2022, CT abdomen pelvis 06/21/2022 HISTORY: ORDERING SYSTEM PROVIDED HISTORY: progress study TECHNOLOGIST PROVIDED HISTORY: progress study FINDINGS: Lines and tubes: Partially visualized enteric tube. Bowel gas pattern: There remain a few dilated loops of small bowel within the central abdomen, measuring up to 4.8 cm. Enteric contrast is seen within the rectum. Soft tissue organ contours: Normal. Bones: No acute osseous findings. IMPRESSION: Persistent dilated loops of small bowel, compatible with known small bowel obstruction. Enteric contrast is seen within the rectum. [facility]ITAL[facility] Phone: Radiology Study observation (narrative) [facility]ITAL[facility] Phone: XR ABDOMEN (KUB) (SINGLE AP VIEW)Ordered By: Mor Louis on 06-23-2022 [facility] [employer] Phone: XR ABDOMEN FOR NG/OG/NE TUBE PLACEMENTon 06-23-2022 XR ABDOMEN FOR NG/OG/NE TUBE PLACEMENT EXAMINATION: ONE SUPINE XRAY VIEW(S) OF THE ABDOMEN 06/23/2022 2:07 pm COMPARISON: Same date at 8:28 a.m. HISTORY: ORDERING SYSTEM PROVIDED HISTORY: Confirmation of course of NG/OG/NE tube and location of tip of tube TECHNOLOGIST PROVIDED HISTORY: Confirmation of course of NG/OG/NE tube and location of tip of tube Portable?->Yes FINDINGS: Enteric device is well within the stomach. Persistent diffuse gas-filled loops mildly dilated small bowel redemonstrated. IMPRESSION: Enteric device is well within the stomach. Interpreted by: Kevin Ayers MD Signed by: Kevin Ayers MD 06/23/22 Final result Normal [facility] Enteric device is well within the stomach. [facility] EXAMINATION: ONE SUPINE XRAY VIEW(S) OF THE ABDOMEN 06/23/2022 2:07 pm COMPARISON: Same date at 8:28 a.m. HISTORY: ORDERING SYSTEM PROVIDED HISTORY: Confirmation of course of NG/OG/NE tube and location of tip of tube TECHNOLOGIST PROVIDED HISTORY: Confirmation of course of NG/OG/NE tube and location of tip of tube Portable?->Yes FINDINGS: Enteric device is well within the stomach. Persistent diffuse gas-filled loops mildly dilated small bowel redemonstrated. [facility] Kevin Ayers MD - 06/23/2022 EXAMINATION: ONE SUPINE XRAY VIEW(S) OF THE ABDOMEN 06/23/2022 2:07 pm COMPARISON: Same date at 8:28 a.m. HISTORY: ORDERING SYSTEM PROVIDED HISTORY: Confirmation of course of NG/OG/NE tube and location of tip of tube TECHNOLOGIST PROVIDED HISTORY: Confirmation of course of NG/OG/NE tube and location of tip of tube Portable?->Yes FINDINGS: Enteric device is well within the stomach. Persistent diffuse gas-filled loops mildly dilated small bowel redemonstrated. IMPRESSION: Enteric device is well within the stomach. [facility] [employer] Phone: Radiology Study observation (narrative) [facility] [employer] Work Phone: XR ABDOMEN FOR NG/OG/NE TUBE PLACEMENTOrdered By: Kevin Ayers on 06-23-2022 [facility] [employer] Work Phone: CBC auto differentialon 06-04 Absolute Eos # 0.46 High [facility] Absolute Immature Granulocyte [facility] Absolute Lymph # 1.65 [facility] Absolute [place] # 0.58 [facility] Basophils (Bld) [#/Vol] 0.05 10*3/uL [facility] Basophils/100 WBC (Bld) 1 % 0 - 2 % [facility] Eosinophils/100 WBC (Bld) 6 % High 1 - 4 % [facility] Hematocrit (Bld) [Volume fraction] 33.8 % Low 40.7 - 50.3 % [facility] Hemoglobin (Bld) [Mass/Vol] 11.1 g/dL Low 13.0 - 17.0 g/dL [facility] Immature granulocytes/100 WBC (Bld) 0 % 0 [facility] Interpretation and review of laboratory results Abnormal [facility] Lymphocytes/100 WBC (Bld) 22 % Low 24 - 43 % [facility] MCH (RBC) [Entitic mass] 33.0 pg 25.2 - 33.5 pg [facility] MCHC (RBC) [Mass/Vol] 32.8 g/dL 28.4 - 34.8 g/dL [facility] MCV (RBC) [Entitic vol] 100.6 fL 82.6 - 102.9 fL [facility] Monocytes/100 WBC (Bld) 8 % 3 - 12 % [facility] NRBC Automated 0.0 0.0 per 100 WBC [facility] Platelet distribution width (Bld) [Ratio] 13.1 % 11.8 - 14.4 % [facility] Platelet mean volume (Bld) [Entitic vol] 8.9 fL 8.1 - 13.5 fL [facility] Platelets (Bld) [#/Vol] 248 10*3/uL [facility] RBC (Bld) [#/Vol] 3.36 10*6/uL Low 4.21 - 5.7 7 m/uL [facility] Segmented neutrophils/100 WBC (Bld) 63 % 36 - 65 % [facility] Segs Absolute 4.77 [facility] WBC (Bld) [#/Vol] 7.5 10*3/uL [facility] CBC with Diffon 06-22-2022 Abs. Basophil 0.05 k/uL Normal 0.00-0.20 [facility] Comment on above: Performed By: #### YULIYA COUGHLIN, CDP #### [address] [place] [address] Control Cabinet Assembler: David Montez MD Abs.Imm.Granulocyte <0.03 Normal 0.00-0.30 [facility] Comment on above: Performed By: #### YULIYA COUGHLIN, CDP #### [address] [place], [facility]83 Control Cabinet Assembler: David Montez MD Abs.Neutrophil (Seg) 4.77 k/uL Normal 1.50-8.10 [facility] Comment on above: Performed By: #### YULIYA COUGHLIN, CDP #### [address] [place], [facility]83 Control Cabinet Assembler: David Montez MD Basophils/100 WBC (Bld) 1 % Normal 0-2 [facility] Comment on above: Performed By: #### R YULIYA KENNEY, CDP #### [address] [place] [address] Control Cabinet Assembler: David Montez MD Eosinophils (Bld) [#/Vol] 0.46 10*3/uL High 0.00-0.44 [facility] Comment on above: Performed By: #### R YULIYA KENNEY, CDP #### [facility] [address] [place], [place] [phone] Control Cabinet Assembler: David Montez MD Eosinophils/100 WBC (Bld) 6 % High 1-4 [facility] Comment on above: Performed By: #### YULIYA COUGHLIN, CDP #### [address] [place], [place] [phone] Control Cabinet Assembler: David Montez MD Erythrocyte distribution width (RBC) [Ratio] 13.1 % Normal 11.8-14.4 [facility] Comment on above: Performed By: #### YULIYA COUGHLIN, CDP #### [address] [place], [place] [phone] Control Cabinet Assembler: David Montez MD Hematocrit (Bld) [Volume fraction] 33.8 % Low 40.7-50.3 [facility] Comment on above: Performed By: #### YULIYA COUGHLIN, CDP #### [address] [place], [place] [phone] Control Cabinet Assembler: David Montez MD Hemoglobin (Bld) [Mass/Vol] 11.1 g/dL Low 13.0-17.0 [facility] Comment on above: Performed By: #### YULIYA COUGHLIN, CDP #### [address] [place], [place] [id number] Control Cabinet Assembler: David Montez MD Immature granulocytes/100 WBC (Bld) 0 % Normal 0 [facility] Comment on above: Performed By: #### YULIYA COUGHLIN, CDP #### [address] [place], [place] [phone] Control Cabinet Assembler: David Montez MD Lymphocytes (Bld) [#/Vol] 1.65 10*3/uL Normal 1.10-3.70 [facility] Comment on above: Performed By: #### YULIYA COUGHLIN, CDP #### [address] [place] [phone] Control Cabinet Assembler: David Montez MD Lymphocytes/100 WBC (Bld) 22 % Low 24-43 [facility] Comment on above: Performed By: #### YULIYA COUGHLIN, CDP #### [facility] [address] [place], [facility]83 Control Cabinet Assembler: David Montez MD MCH (RBC) [Entitic mass] 33.0 pg Normal 25.2-33.5 [facility] Comment on above: Performed By: #### YULIYA COUGHLIN, CDP #### [facility] [address] [place] [phone] Control Cabinet Assembler: David Montez MD MCHC (RBC) [Mass/Vol] 32.8 g/dL Normal 28.4-34.8 [facility] Comment on above: Performed By: #### YULIYA COUGHLIN, CDP #### [address] [place], [facility]83 Control Cabinet Assembler: David Montez MD MCV (RBC) [Entitic vol] 100.6 fL Normal 82.6-102.9 [facility] Comment on above: Performed By: #### YULIYA COUGHLIN, CDP #### [address] [place] [id number] Control Cabinet Assembler: David Montez MD Monocytes (Bld) [#/Vol] 0.58 10*3/uL Normal 0.10-1.20 [facility] Comment on above: Performed By: #### YULIYA COUGHLIN, CDP #### [facility] [address] [place], [facility]83 Control Cabinet Assembler: David Montez MD Monocytes/100 WBC (Bld) 8 % Normal 3-12 [facility] Comment on above: Performed By: #### YULIYA COUGHLIN, CDP #### [facility] [address] [place], [facility]83 Control Cabinet Assembler: David Montez MD Neutrophil (Seg) 63 % Normal 36-65 [facility] Comment on above: Performed By: #### YULIYA COUGHLIN, CDP #### [facility] [address] [place] [address] [place] [address] Control Cabinet Assembler: David Montez MD NRBC Automated 0.0 per 100 WBC Normal 0.0 [facility] Comment on above: Performed By: #### YULIYA COUGHLIN, CDP #### [facility] [address] [place], [place] [id number] Control Cabinet Assembler: David Montez MD Platelet mean volume (Bld) [Entitic vol] 8.9 fL Normal 8.1-13.5 [facility] Comment on above: Performed By: #### YULIYA COUGHLIN, CDP #### [address] [place], [facility]83 Control Cabinet Assembler: David Montez MD Platelets (Bld) [#/Vol] 248 10*3/uL Normal 138-453 [facility] Comment on above: Performed By: #### YULIYA COUGHLIN, CDP #### [address] [place], [place] [id number] Control Cabinet Assembler: David Montez MD RBC (Bld) [#/Vol] 3.36 10*6/uL Low 4.21-5.77 [facility] Comment on above: Performed By: #### YULIYA COUGHLIN, CDP #### [address] [place], [place] [id number] Control Cabinet Assembler: David Montez MD WBC (Bld) [#/Vol] 7.5 10*3/uL Normal 3.5-11.3 [facility] Comment on above: Performed By: #### YULIYA COUGHLIN, CDP #### [facility] [address] [place] [address] Control Cabinet Assembler: David Montez MD EKG Rhythm Stripon 3 [facility]T [facility] FL SMALL BOWEL FOLLOW THROUG H ONLYon 06-22-2022 FL SMALL BOWEL FOLLOW THROUGH ONLY EXAMINATION: SMALL BOWEL FOLLOW THROUGH SERIES 06/22/2022 TECHNIQUE: Serial portable radiographs of the abdomen were performed after administration of Gastrografin via indwelling NG tube. FLUOROSCOPY DOSE AND TYPE: Radiation Exposure Index: None, COMPARISON: Abdominal radiograph today, 06/21/2022, 06/14/2022. CT abdomen and pelvis 06/21/2022. HISTORY: ORDERING SYSTEM PROVIDED HISTORY: therapeutic gastrograffin sbft for partial sbo via ngt. still needs it even though had one last month. TECHNOLOGIST PROVIDED HISTORY: Please start today therapeutic gastrograffin sbft for partial sbo via ngt. still needs it even though had one last month. FINDINGS: Contrast was administered via indwelling NG tube. Stasis of contrast in the stomach with minimal emptying after 3 hours of administration is noted. The overall amount of visible contrast in the stomach appears diminished since the initial imaging. Small and large bowel again demonstrated. IMPRESSION: Minimal contrast emptying from the stomach after 3 hours of imaging and diffuse small and large bowel distension, favoring ileus versus partial obstructing process. As such, follow-up abdominal radiograph in 4 hours (approximate 8 p.m.) is suggested. Interpreted by: Daquan Mcdermott MD Signed by: Daquan Mcdermott MD 06/22/22 Final result Normal [facility] Minimal contrast emptying from the stomach after 3 hours of imaging and diffuse small and large bowel distension, favoring ileus versus partial obstructing process. As such, follow-up abdominal radiograph in 4 hours (approximate 8 p.m.) is suggested. [facility] RIS CONSOLIDATED EXAMINATION: SMALL BOWEL FOLLOW THROUGH SERIES 06/22/2022 TECHNIQUE: Serial portable radiographs of the abdomen were performed after administration of Gastrografin via indwelling NG tube. FLUOROSCOPY DOSE AND TYPE: Radiation Exposure Index: None, COMPARISON: Abdominal radiograph today, 06/21/2022, 06/14/2022. CT abdomen and pelvis 06/21/2022. HISTORY: ORDERING SYSTEM PROVIDED HISTORY: therapeutic gastrograffin sbft for partial sbo via ngt. still needs it even though had one last month. TECHNOLOGIST PROVIDED HISTORY: Please start today therapeutic gastrograffin sbft for partial sbo via ngt. still needs it even though had one last month. FINDINGS: Contrast was administered via indwelling NG tube. Stasis of contrast in the stomach with minimal emptying after 3 hours of administration is noted. The overall amount of visible contrast in the stomach appears diminished since the initial imaging. Small and large bowel again demonstrated. [facility] RIS Daquan Wilson MD - 06/22/2022 EXAMINATION: SMALL BOWEL FOLLOW THROUGH SERIES 06/22/2022 TECHNIQUE: Serial portable radiographs of the abdomen were performed after administration of Gastrografin via indwelling NG tube. FLUOROSCOPY DOSE AND TYPE: Radiation Exposure Index: None, COMPARISON: Abdominal radiograph today, 06/21/2022, 06/14/2022. CT abdomen and pelvis 06/21/2022. HISTORY: ORDERING SYSTEM PROVIDED HISTORY: therapeutic gastrograffin sbft for partial sbo via ngt. still needs it even though had one last month. TECHNOLOGIST PROVIDED HISTORY: Please start today therapeutic gastrograffin sbft for partial sbo via ngt. still needs it even though had one last month. FINDINGS: Contrast was administered via indwelling NG tube. Stasis of contrast in the stomach with minimal emptying after 3 hours of administration is noted. The overall amount of visible contrast in the stomach appears diminished since the initial imaging. Small and large bowel again demonstrated. IMPRESSION: Minimal contrast emptying from the stomach after 3 hours of imaging and diffuse small and large bowel distension, favoring ileus versus partial obstructing process. As such, follow-up abdominal radiograph in 4 hours (approximate 8 p.m.) is suggested. [employer] Phone: [employer] Phone: Radiology Study observation (narrative) [employer] Phone: XR ABDOMEN (KUB) (SINGLE AP VIEW)on 06-22-2022 XR ABDOMEN (KUB) (SINGLE AP VIEW) EXAMINATION: ONE SUPINE XRAY VIEW(S) OF THE ABDOMEN 06/22/2022 9:12 am COMPARISON: 06/21/2022 HISTORY: ORDERING SYSTEM PROVIDED HISTORY: sbo progress study/mrdd/recurrent sbo has ngt TECHNOLOGIST PROVIDED HISTORY: sbo progress study/mrdd/recurrent sbo has ngt FINDINGS: The tip and side-hole of NG tube projects at the level the body of the stomach. Dilated small bowel is again demonstrated. Mild amount of colonic gas is present as well. The bladder is distended with contrast. IMPRESSION: 1. NG tube remains in place. Persistent small bowel distension and nondilated colonic gas. 2. Distended bladder with contrast. Interpreted by: Daquan Mcdermott MD Signed by: Daquan Mcdermott MD 06/22/22 Final result Normal [facility] 1. NG tube remains in place. Persistent small bowel distension and nondilated colonic gas. 2. Distended bladder with contrast. [facility] CONSOLIDATED EXAMINATION: ONE SUPINE XRAY VIEW(S) OF THE ABDOMEN 06/22/2022 9:12 am COMPARISON: 06/21/2022 HISTORY: ORDERING SYSTEM PROVIDED HISTORY: sbo progress study/mrdd/recurrent sbo has ngt TECHNOLOGIST PROVIDED HISTORY: sbo progress study/mrdd/recurrent sbo has ngt FINDINGS: The tip and side-hole of NG tube projects at the level the body of the stomach. Dilated small bowel is again demonstrated. Mild amount of colonic gas is present as well. The bladder is distended with contrast. [facility] CONSOLIDATED Daquan Mcdermott MD - 06/22/2022 EXAMINATION: ONE SUPINE XRAY VIEW(S) OF THE ABDOMEN 06/22/2022 9:12 am COMPARISON: 06/21/2022 HISTORY: ORDERING SYSTEM PROVIDED HISTORY: sbo progress study/mrdd/recurrent sbo has ngt TECHNOLOGIST PROVIDED HISTORY: sbo progress study/mrdd/recurrent sbo has ngt FINDINGS: The tip and side-hole of NG tube projects at the level the body of the stomach. Dilated small bowel is again demonstrated. Mild amount of colonic gas is present as well. The bladder is distended with contrast. IMPRESSION: 1. NG tube remains in place. Persistent small bowel distension and nondilated colonic gas. 2. Distended bladder with contrast. [facility] Phone: Radiology Study observation (narrative) [facility]ITALInfracommerce Phone: XR ABDOMEN (KUB) (SINGLE AP VIEW)Ordered By: Daquan Mcdermott on 06-22-2022 [facility] Work Phone: CBC with Auto Differentialon 06-21-2022 Absolute Eos # 0.48 High [facility] Absolute Immature Granulocyte 0.00 [facility] Absolute Lymph # 1.68 [facility] Absolute [place] # 0.84 [facility] Basophils (Bld) [#/Vol] 0.00 10*3/uL [facility] Basophils/100 WBC (Bld) 0 % 0 - 2 % [facility] Eosinophils/100 WBC (Bld) 4 % 1 - 4 % [facility] Hematocrit (Bld) [Volume fraction] 38.8 % Low 40.7 - 50.3 % [facility] Hemoglobin (Bld) [Mass/Vol] 12.9 g/dL Low 13.0 - 17.0 g/dL [facility] Immature granulocytes/100 WBC (Bld) 0 % 0 [facility] Interpretation and review of laboratory results Abnormal [facility] Lymphocytes/100 WBC (Bld) 14 % Low 24 - 43 % [facility] MCH (RBC) [Entitic mass] 33.2 pg 25.2 - 33.5 pg [facility] MCHC (RBC) [Mass/Vol] 33.2 g/dL 28.4 - 34.8 g/dL [facility] MCV (RBC) [Entitic vol] 99.7 fL 82.6 - 102.9 fL [facility] Monocytes/100 WBC (Bld) 7 % 3 - 12 % [facility] Morphology Harsh (Bld) [Interp] Platelet scan shows Normal Platelets [facility] NRBC Automated 0.0 0.0 per 100 WBC [facility] Platelet distribution width (Bld) [Ratio] 13.1 % 11.8 - 14.4 % [facility] Platelets (Bld) [#/Vol] See Reflexed IPF Result [facility] RBC (Bld) [#/Vol] 3.89 10*6/uL Low 4.21 - 5.7 7 m/uL [facility] Segmented neutrophils/100 WBC (Bld) 75 % High 36 - 65 % [facility] Seg[facility] Absolute 9.00 High [facility] WBC (Bld) [#/Vol] 12.0 10*3/uL High [facility] CBC with Diffon 06-21-2022 Abs. Basophil 0.00 k/uL Normal 0.0-0.2 [facility] Comment on above: Performed By: #### YULIYA COUGHLIN, CDP #### [facility] [address] [place] [address] Control Cabinet Assembler: David Montez MD Abs.Imm.Granulocyte 0.00 k/uL Normal 0.00-0.30 [facility] Comment on above: Performed By: #### YULIYA COUGHLIN, CDP #### [facility] [address] [place] [address] Control Cabinet Assembler: David Montze MD Abs.Neutrophil (Seg) 9.00 k/uL High 1.50-8.10 [facility] Comment on above: Performed By: #### YULIYA COUGHLIN, CDP #### [address] [place], [place] [id number] Control Cabinet Assembler: David Montez MD Basophils/100 WBC (Bld) 0 % Normal 0-2 [facility] Comment on above: Performed By: #### YULIYA COUGHLIN, CDP #### [facility] [address] [place], [place] [id number] Control Cabinet Assembler: David Montez MD Eosinophils (Bld) [#/Vol] 0.48 10*3/uL High 0.00-0.44 [facility] Comment on above: Performed By: #### YULIYA COUGHLIN, CDP #### [facility] [address] [place] [address] Control Cabinet Assembler: David Montez MD Eosinophils/100 WBC (Bld) 4 % Normal 1-4 [facility] Comment on above: Performed By: #### R YULIYA KENNEY, CDP #### [facility] [address] [place], [place] [address] Control Cabinet Assembler: David Montez MD Immature granulocytes/100 WBC (Bld) 0 % Normal 0 [facility] Comment on above: Performed By: #### YULIYA COUGHLIN, CDP #### [facility] [address] [place], [place] [address] Control Cabinet Assembler: David Montez MD Lymphocytes (Bld) [#/Vol] 1.68 10*3/uL Normal 1.10-3.70 [facility] Comment on above: Performed By: #### YULIYA COUGHLIN, CDP #### [address] [place] [address] Control Cabinet Assembler: David Montez MD Lymphocytes/100 WBC (Bld) 14 % Low 24-43 [facility] Comment on above: Performed By: #### YULIYA COUGHLIN, CDP #### [address] [place], [facility]83 Control Cabinet Assembler: David Montez MD Monocytes (Bld) [#/Vol] 0.84 10*3/uL Normal 0.10-1.20 [facility] Comment on above: Performed By: #### YULIYA COUGHLIN, CDP #### [address] [place], [facility]83 Control Cabinet Assembler: David Montez MD Monocytes/100 WBC (Bld) 7 % Normal 3-12 [facility] Comment on above: Performed By: #### YULIYA COUGHLIN, CDP #### [facility] [address] [place] [id number] Control Cabinet Assembler: David Montez MD Morphology Harsh (Bld) [Interp] Platelet scan shows Normal Platelets Normal [facility] Comment on above: Performed By: #### R YULIYA KENNEY, CDP #### [facility] [address] [place] [address] [place], [place] [phone] Control Cabinet Assembler: David Montez MD Neutrophil (Seg) 75 % High 36-65 [facility] Comment on above: Performed By: #### YULIYA COUGHLIN, CDP #### [address] [place], [facility]83 Control Cabinet Assembler: David Montez MD Erythrocyte distribution width (RBC) [Ratio] 13.1 % Normal 11.8-14.4 [facility] Comment on above: Performed By: #### YULIYA COUGHLIN, CDP #### [address] [place], [facility]83 Control Cabinet Assembler: David Montez MD Hematocrit (Bld) [Volume fraction] 38.8 % Low 40.7-50.3 [facility] Comment on above: Performed By: #### YULIYA COUGHLIN, CDP #### [address] [place], [facility]83 Control Cabinet Assembler: David Montez MD Hemoglobin (Bld) [Mass/Vol] 12.9 g/dL Low 13.0-17.0 [facility] Comment on above: Performed By: #### YULIYA COUGHLIN, CDP #### [address] [place], [facility]83 Control Cabinet Assembler: David Montez MD MCH (RBC) [Entitic mass] 33.2 pg Normal 25.2-33.5 [facility] Comment on above: Performed By: #### YULIYA COUGHLIN, CDP #### [address] [place] [address] Control Cabinet Assembler: David Montez MD MCHC (RBC) [Mass/Vol] 33.2 g/dL Normal 28.4-34.8 [facility] Comment on above: Performed By: #### YULIYA COUGHLIN, CDP #### [facility] [address] [place], [place] [phone] Control Cabinet Assembler: David Montez MD MCV (RBC) [Entitic vol] 99.7 fL Normal 82.6-102.9 [facility] Comment on above: Performed By: #### R ANNE MARIE IPF, CDP #### [address] [place], [facility]83 Control Cabinet Assembler: David Montez MD NRBC Automated 0.0 per 100 WBC Normal 0.0 [facility] Comment on above: Performed By: #### R YULIYA KENNEY, CDP #### [address] [place] [id number] Control Cabinet Assembler: David Montez MD Platelet Count See Reflexed IPF Result Normal 138-453 [facility] Comment on above: Performed By: #### R YULIYA KENNEY, CDP #### [address] [place], [facility]83 Control Cabinet Assembler: David Montez MD RBC (Bld) [#/Vol] 3.89 10*6/uL Low 4.21-5.77 [facility] Comment on above: Performed By: #### R YULIYA KENNEY, CDP #### [address] [place], [place] [address] Control Cabinet Assembler: David Montez MD WBC (Bld) [#/Vol] 12.0 10*3/uL High 3.5-11.3 [facility] Comment on above: Performed By: #### R YULIYA KENNEY, CDP #### [address] [place] [address] Control Cabinet Assembler: David Montez MD CT ABDOMEN PELVIS W IV CONTR Santosh 06-21-2022 CT ABDOMEN PELVIS W IV CONTRAST EXAMINATION: CT OF THE ABDOMEN AND PELVIS WITH CONTRAST 06/21/2022 10:44 am TECHNIQUE: CT of the abdomen and pelvis was performed with the administration of intravenous contrast. Multiplanar reformatted images are provided for review. Automated exposure control, iterative reconstruction, and/or weight based adjustment of the mA/kV was utilized to reduce the radiation dose to as low as reasonably achievable. COMPARISON: None. HISTORY: ORDERING SYSTEM PROVIDED HISTORY: Abdominal distention rule out SBO TECHNOLOGIST PROVIDED HISTORY: Abdominal distention rule out SBO Decision Support Exception - unselect if not a suspected or confirmed emergency medical condition->Emergency Medical Condition (MA) FINDINGS: Lower Chest: Bibasilar atelectasis. Coronary artery disease. Organs: Liver is normal in size and density. No focal masses identified. No evidence of intrahepatic ductal dilatation. Spleen is normal size. The gallbladder is unremarkable. Both adrenal glands are normal. Pancreas is normal in appearance. 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 The kidneys are otherwise normal in size and attenuation without evidence of hydronephrosis or renal calculi. GI/Bowel: Fluid-filled dilated loops of small bowel and stomach. Colon is somewhat decompressed. The small hiatal hernia Pelvis: No intrapelvic mass is identified. Bladder and rectum are intact. Peritoneum/Retroperi toneum: No free fluid. No lymphadenopathy. No evidence of pneumoperitoneum. Bones/Soft Tissues: . The abdominal and pelvic viera are unremarkable. Degenerative changes seen in the visualized spine . No acute bony abnormalities. Vascular calcifications are seen compatible with atherosclerotic disease. IMPRESSION: Small-bowel obstruction with transition point possibly in the ileum RECOMMENDATIONS: Surgical consultation Interpreted by: Melchor Mota MD Signed by: Melchor Mota MD 06/21/22 Final result Normal [facility] CT ABDOMEN PELVIS W IV CONTR AST Additional Contrast? Noneon 06-21-2022 Small-bowel obstruction with transition point possibly in the ileum RECOMMENDATIONS: Surgical consultation [facility] CONSOLIDATED EXAMINATION: CT OF THE ABDOMEN AND PELVIS WITH CONTRAST 06/21/2022 10:44 am TECHNIQUE: CT of the abdomen and pelvis was performed with the administration of intravenous contrast. Multiplanar reformatted images are provided for review. Automated exposure control, iterative reconstruction, and/or weight based adjustment of the mA/kV was utilized to reduce the radiation dose to as low as reasonably achievable. COMPARISON: None. HISTORY: ORDERING SYSTEM PROVIDED HISTORY: Abdominal distention rule out SBO TECHNOLOGIST PROVIDED HISTORY: Abdominal distention rule out SBO Decision Support Exception - unselect if not a suspected or confirmed emergency medical condition->Emergency Medical Condition (MA) FINDINGS: Lower Chest: Bibasilar atelectasis. Coronary artery disease. Organs: Liver is normal in size and density. No focal masses identified. No evidence of intrahepatic ductal dilatation. Spleen is normal size. The gallbladder is unremarkable. Both adrenal glands are normal. Pancreas is normal in appearance. 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 The kidneys are otherwise normal in size and attenuation without evidence of hydronephrosis or renal calculi. GI/Bowel: Fluid-filled dilated loops of small bowel and stomach. Colon is somewhat decompressed. The small hiatal hernia Pelvis: No intrapelvic mass is identified. Bladder and rectum are intact. Peritoneum/Retroperi toneum: No free fluid. No lymphadenopathy. No evidence of pneumoperitoneum. Bones/Soft Tissues: . The abdominal and pelvic viera are unremarkable. Degenerative changes seen in the visualized spine . No acute bony abnormalities. Vascular calcifications are seen compatible with atherosclerotic disease. [facility] RIS CONSOLIDATED Melchor Mota MD - 06/21/2022 EXAMINATION: CT OF THE ABDOMEN AND PELVIS WITH CONTRAST 06/21/2022 10:44 am TECHNIQUE: CT of the abdomen and pelvis was performed with the administration of intravenous contrast. Multiplanar reformatted images are provided for review. Automated exposure control, iterative reconstruction, and/or weight based adjustment of the mA/kV was utilized to reduce the radiation dose to as low as reasonably achievable. COMPARISON: None. HISTORY: ORDERING SYSTEM PROVIDED HISTORY: Abdominal distention rule out SBO TECHNOLOGIST PROVIDED HISTORY: Abdominal distention rule out SBO Decision Support Exception - unselect if not a suspected or confirmed emergency medical condition->Emergency Medical Condition (MA) FINDINGS: Lower Chest: Bibasilar atelectasis. Coronary artery disease. Organs: Liver is normal in size and density. No focal masses identified. No evidence of intrahepatic ductal dilatation. Spleen is normal size. The gallbladder is unremarkable. Both adrenal glands are normal. Pancreas is normal in appearance. 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 The kidneys are otherwise normal in size and attenuation without evidence of hydronephrosis or renal calculi. GI/Bowel: Fluid-filled dilated loops of small bowel and stomach. Colon is somewhat decompressed. The small hiatal hernia Pelvis: No intrapelvic mass is identified. Bladder and rectum are intact. Peritoneum/Retroperi toneum: No free fluid. No lymphadenopathy. No evidence of pneumoperitoneum. Bones/Soft Tissues: . The abdominal and pelvic viera are unremarkable. Degenerative changes seen in the visualized spine . No acute bony abnormalities. Vascular calcifications are seen compatible with atherosclerotic disease. IMPRESSION: Small-bowel obstruction with transition point possibly in the ileum RECOMMENDATIONS: Surgical consultation [facility] [email or web address] Phone: Radiology Study observation (narrative) [facility] [email or web address] Phone: CT ABDOMEN PELVIS W IV CONTR AST Additional Contrast? NoneOrdered By: Melchor Mota on 06-21-2022 [facility] [email or web address] Phone: Comp Metabolic Profon 2022 Albumin [Mass/Vol] 4.3 g/dL Normal 3.5-5.2 [facility] Comment on above: Performed By: #### C DP, BMPX #### [facility] [address] [place] [address] [place] [address] Control Cabinet Assembler: David Montez MD Albumin/Glob Ratio 1.2 Normal 1.0-2.5 [facility] Comment on above: Performed By: #### C DP, BMPX #### [facility] [address] [place] [address] Control Cabinet Assembler: David Montez MD Alkaline Phos 131 U/L High 40-129 [facility] Comment on above: Performed By: #### C DP, BMPX #### [facility] [address] [place] [address] Control Cabinet Assembler: David Montez MD ALT [Catalytic activity/Vol] 19 U/L Normal 5-41 [facility] Comment on above: Performed By: #### C DP, BMPX #### [facility] [address] [place] [address] Control Cabinet Assembler: David Montez MD Anion gap [Moles/Vol] 11 mmol/L Normal 9-17 [facility] Comment on above: Performed By: #### C DP, BMPX #### [facility] [address] [place], [place] [phone] Control Cabinet Assembler: David Montez MD AST [Catalytic activity/Vol] 19 U/L Normal <40 [facility] Comment on above: Performed By: #### C DP, BMPX #### [facility] [address] [place], [place] [phone] Control Cabinet Assembler: David Montez MD Bilirubin [Mass/Vol] 0.3 mg/dL Normal 0.3-1.2 [facility] Comment on above: Performed By: #### C DP, BMPX #### [facility] [address] [place], [place] [id number] Control Cabinet Assembler: David Montez MD BUN/CRE Ratio 18 Normal 9-20 [facility] Comment on above: Performed By: #### C DP, BMPX #### Access [facility] [address] [place], [place] [id number] Control Cabinet Assembler: David Montez MD Calcium [Mass/Vol] 10.0 mg/dL Normal 8.6-10.4 [facility] Comment on above: Performed By: #### C DP, BMPX #### [facility] [address] [place], [place] [id number] Control Cabinet Assembler: David Montez MD Chloride [Moles/Vol] 99 mmol/L Normal 98-107 [facility] Comment on above: Performed By: #### C DP, BMPX #### [facility] [address] [place] [address] Control Cabinet Assembler: David Montez MD CO2 [Moles/Vol] 28 mmol/L Normal 20-31 [facility] Comment on above: Performed By: #### C DP, BMPX #### [facility] [address] [place] [address] Control Cabinet Assembler: David Montez MD Creatinine [Mass/Vol] 1.04 mg/dL Normal 0.70-1.20 [facility] Comment on above: Performed By: #### C DP, BMPX #### [facility] [address] [place] [address] Control Cabinet Assembler: David Montez MD GFR/1.73 sq M.predicted among non-blacks MDRD (S/P/Bld) [Vol rate/Area] mL/min/{1.73_m2} Normal >60 [facility] Comment on above: Result Comment: These results are not intended for use in patients <18 years of age. eGFR results are calculated without a race factor using the 2020 CKD-EPI equation. Careful clinical correlation is recommended, particularly when comparing to results calculated using previous equations. The CKD-EPI equation is less accurate in patients with extremes of muscle mass, extra-renal metabolism of creatine, excessive creatine ingestion, or following therapy that affects renal tubular secretion. Performed By: #### C DP, BMPX #### [facility] [address] [place] [address] Control Cabinet Assembler: David Montez MD Glucose [Mass/Vol] 105 mg/dL High 70-99 [facility] Comment on above: Performed By: #### C DP, BMPX #### [facility] [address] [place] [address] Control Cabinet Assembler: David Montez MD Potassium [Moles/Vol] 3.8 mmol/L Normal 3.7-5.3 [facility] Comment on above: Performed By: #### C DP, BMPX #### [facility] [address] [place] [address] Control Cabinet Assembler: David Montez MD Protein [Mass/Vol] 7.8 g/dL Normal 6.4-8.3 [facility] Comment on above: Performed By: #### C DP, BMPX #### [facility] [address] [place] [address] Control Cabinet Assembler: David Montez MD Sodium [Moles/Vol] 138 mmol/L Normal 135-144 [facility] Comment on above: Performed By: #### C DP, BMPX #### [facility] [address] [place] [address] Control Cabinet Assembler: David Montez MD Urea nitrogen [Mass/Vol] 19 mg/dL Normal 8-23 [facility] Comment on above: Performed By: #### C DP, BMPX #### [facility] [address] [place] [address] Control Cabinet Assembler: David Montez MD Comprehensive Metabolic Pane [facility] 06-21-2022 Albumin [Mass/Vol] 4.3 g/dL 3.5 - 5.2 g/dL [facility] Albumin/Globulin [Mass ratio] 1.2 {ratio} 1.0 - 2.5 [facility] ALP [Catalytic activity/Vol] 131 U/L High 40 - 129 U/L [facility] ALT [Catalytic activity/Vol] 19 U/L 5 - 41 U/L [facility] Anion gap [Moles/Vol] 11 mmol/L 9 - 17 mmol/L [facility] AST [Catalytic activity/Vol] 19 U/L NINF - 40 U/L [facility] Bilirubin [Mass/Vol] 0.3 mg/dL 0.3 - 1 .2 mg/dL [facility] Calcium [Mass/Vol] 10.0 mg/dL 8.6 - 10. 4 mg/dL [facility] Chloride [Moles/Vol] 99 mmol/L 98 - 10 7 mmol/L [facility] CO2 [Moles/Vol] 28 mmol/L 20 - 31 mmol/L [facility] Creatinine [Mass/Vol] 1.04 mg/dL 0.70 - 1.20 mg/dL [facility] GFR/1.73 sq M.predicted MDRD (S/P/Bld) [Vol rate/Area] - PINF [facility] Comment on above: These results are not intended for use in patients <18 years of age. eGFR results are calculated without a race factor using the 2020 CKD-EPI equation. Careful clinical correlation is recommended, particularly when comparing to results calculated using previous equations. The CKD-EPI equation is less accurate in patients with extremes of muscle mass, extra-renal metabolism of creatine, excessive creatine ingestion, or following therapy that affects renal tubular secretion. Glucose [Mass/Vol] 105 mg/dL High 70 - 99 mg/dL [facility] Interpretation and review of laboratory results Abnormal [facility] Potassium [Moles/Vol] 3.8 mmol/L 3.7 - 5.3 mmol/L [facility] Protein [Mass/Vol] 7.8 g/dL 6.4 - 8.3 g/dL [facility] Sodium [Moles/Vol] 138 mmol/L 135 - 144 mmol/L [facility] Urea nitrogen [Mass/Vol] 19 mg/dL 8 - 23 mg/dL [facility] Urea nitrogen/Creatinine (Bld) [Mass ratio] 18 9 - 20 [facility] Immature Platelet Fractionon 06-21-2022 Platelet, Fluorescence 400 [facility] Platelet, Immature Fraction 1.2 % 1.1 - 10.3 % [facility] Lactic Acidon 06-21-2022 Lactate [Moles/Vol] 1.3 mmol/L Normal 0.5-2.2 [facility] Comment on above: Performed By: #### R EJEC, IPF, CDP #### [facility] [address] [place] [address] Control Cabinet Assembler: David Montez MD Lactate (P simon) [Moles/Vol] 1.3 mmol/L 0.5 - 2.2 mmol/L [facility] Lipaseon 06-21-2022 Lipase [Catalytic activity/Vol] 27 U/L Normal 13-60 [facility] Comment on above: Performed By: #### C DP, BMPX #### [facility] [address] [place] [address] Control Cabinet Assembler: David Montez MD Lipase [Catalytic activity/Vol] 27 U/L 13 - 60 U/L [facility] No Panel Informationon 06-21 [facility] PLT, Immature Fract.on 06-21 Platelet, Fluoresc. 400 k/uL Normal 138-453 [facility] Comment on above: Performed By: #### YULIYA COUGHLIN, CDP #### [facility] [address] [place] [address] Control Cabinet Assembler: David Montez MD PLT, Immature Fract. 1.2 % Normal 1.1-10.3 [facility] Comment on above: Performed By: #### YULIYA COUGHLIN, CDP #### [facility] [address] [place] [address] Control Cabinet Assembler: David Montez MD SPECIMEN REJECTIONon 023 Ordered Test CP,LIP [facility] Reason for Rejection Unable to perform testing: Specimen hemolyzed. [facility] Specimen source Nom (Unsp spec) .BLOOD [facility] Specimen Rejectionon 023 Reason for rejection Unable to perform testing: Specimen hemolyzed. Normal [facility] Comment on above: Performed By: #### YULIYA COUGHLIN, CDP #### [facility] [address] [place] [address] Control Cabinet Assembler: David Montez MD Source of sample .BLOOD Normal [facility] Comment on above: Performed By: #### YULIYA COUGHLIN, CDP #### [facility] [address] [place] [address] Control Cabinet Assembler: David Montez MD Test ordered CP,LIP Normal [facility] Comment on above: Performed By: #### YULIYA COUGHLIN, CDP #### [facility] [address] [place] [address] Control Cabinet Assembler: David Montez MD Stool PCR [place] 06-22-19 Specimen Description .FECES Normal [facility] Comment on above: Performed By: #### R EJEC, IPF, CDP #### [facility] [address] [place] [address] Control Cabinet Assembler: David Montez MD XR ABDOMEN FOR NG/OG/NE TUBE PLACEMENTon 06-21-2022 XR ABDOMEN FOR NG/OG/NE TUBE PLACEMENT EXAMINATION: ONE SUPINE XRAY VIEW(S) OF THE ABDOMEN 06/21/2022 3:46 pm COMPARISON: 06/14/2022 HISTORY: ORDERING SYSTEM PROVIDED HISTORY: Confirmation of course of NG/OG/NE tube and location of tip of tube TECHNOLOGIST PROVIDED HISTORY: Confirmation of course of NG/OG/NE tube and location of tip of tube Portable?->Yes FINDINGS: The tip of the OG/NG tube and side hole/port are in satisfactory position in the mid stomach. There is moderate to marked gaseous distention of bowel in the upper abdomen. Lung bases are grossly clear. IMPRESSION: The OG/NG tube has been placed in good position. Interpreted by: Angel Gaston MD Signed by: Angel Gaston MD 06/21/22 Final result Normal [facility] The OG/NG tube has been placed in good position. [facility] RIS CONSOLIDATED EXAMINATION: ONE SUPINE XRAY VIEW(S) OF THE ABDOMEN 06/21/2022 3:46 pm COMPARISON: 06/14/2022 HISTORY: ORDERING SYSTEM PROVIDED HISTORY: Confirmation of course of NG/OG/NE tube and location of tip of tube TECHNOLOGIST PROVIDED HISTORY: Confirmation of course of NG/OG/NE tube and location of tip of tube Portable?->Yes FINDINGS: The tip of the OG/NG tube and side hole/port are in satisfactory position in the mid stomach. There is moderate to marked gaseous distention of bowel in the upper abdomen. Lung bases are grossly clear. [facility] RIS CONSOLIDATED Angel Gaston MD - 06/21/2022 EXAMINATION: ONE SUPINE XRAY VIEW(S) OF THE ABDOMEN 06/21/2022 3:46 pm COMPARISON: 06/14/2022 HISTORY: ORDERING SYSTEM PROVIDED HISTORY: Confirmation of course of NG/OG/NE tube and location of tip of tube TECHNOLOGIST PROVIDED HISTORY: Confirmation of course of NG/OG/NE tube and location of tip of tube Portable?->Yes FINDINGS: The tip of the OG/NG tube and side hole/port are in satisfactory position in the mid stomach. There is moderate to marked gaseous distention of bowel in the upper abdomen. Lung bases are grossly clear. IMPRESSION: The OG/NG tube has been placed in good position. [facility] [employer] Phone: Radiology Study observation (narrative) [facility] [email or web address] Phone: XR ABDOMEN FOR NG/OG/NE TUBE PLACEMENTOrdered By: Angel Gaston on 06-21-2022 [facility] [email or web address] Phone: Basic Metab w/rfx MGon 06-15 Anion gap [Moles/Vol] 8 mmol/L Low 9-17 [facility] Comment on above: Performed By: #### YULIYA COUGHLIN, CDP #### [facility] [address] [place] [address] [place] [address] Control Cabinet Assembler: David Montez MD BUN/CRE Ratio 9 Normal 9-20 [facility] Comment on above: Performed By: #### YULIYA COUGHLIN, CDP #### [facility] [address] [place] [address] [place] [address] Control Cabinet Assembler: David Montez MD Calcium [Mass/Vol] 8.9 mg/dL Normal 8.6-10.4 [facility] Comment on above: Performed By: #### YULIYA COUGHLIN, CDP #### [facility] [address] [place] [address] [place] [address] Control Cabinet Assembler: David Montez MD Chloride [Moles/Vol] 110 mmol/L High 98-107 [facility] Comment on above: Performed By: #### YULIYA COUGHLIN, CDP #### [facility] [address] [place] [address] [place] [address] Control Cabinet Assembler: David Montez MD CO2 [Moles/Vol] 22 mmol/L Normal 20-31 [facility] Comment on above: Performed By: #### YULIYA COUGHLIN, CDP #### [facility] [address] [place] [address] Control Cabinet Assembler: David Montez MD Creatinine [Mass/Vol] 0.93 mg/dL Normal 0.70-1.20 [facility] Comment on above: Performed By: #### YULIYA COUGHLIN, CDP #### [facility] [address] [place] [address] Control Cabinet Assembler: David Montez MD GFR/1.73 sq M.predicted among non-blacks MDRD (S/P/Bld) [Vol rate/Area] mL/min/{1.73_m2} Normal >60 [facility] Comment on above: Result Comment: These results are not intended for use in patients <18 years of age. eGFR results are calculated without a race factor using the 2020 CKD-EPI equation. Careful clinical correlation is recommended, particularly when comparing to results calculated using previous equations. The CKD-EPI equation is less accurate in patients with extremes of muscle mass, extra-renal metabolism of creatine, excessive creatine ingestion, or following therapy that affects renal tubular secretion. Performed By: #### YULIYA COUGHLIN, CDP #### [facility] [address] [place] [address] Control Cabinet Assembler: David Montez MD Glucose [Mass/Vol] 83 mg/dL Normal 70-99 [facility] Comment on above: Performed By: #### YULIYA COUGHLIN, CDP #### [facility] [address] [place] [address] Control Cabinet Assembler: David Montez MD Potassium [Moles/Vol] 4.2 mmol/L Normal 3.7-5.3 [facility] Comment on above: Performed By: #### YULIYA COUGHLIN, CDP #### [facility] [address] [place] [id number] Control Cabinet Assembler: David Montez MD Sodium [Moles/Vol] 140 mmol/L Normal 135-144 [facility] Comment on above: Performed By: #### YULIYA COUGHLIN, CDP #### [facility] [address] [place] [id number] Control Cabinet Assembler: David Montez MD Urea nitrogen [Mass/Vol] 8 mg/dL Normal 8-23 [facility] Comment on above: Performed By: #### Rick KENNEY IPF, CDP #### [facility] [address] [place], [facility]83 Control Cabinet Assembler: David Montez MD CBC with Diffon 06-15-2022 Abs. Basophil 0.04 k/uL Normal 0.00-0.20 [facility] Comment on above: Performed By: #### YULIYA COUGHLIN, CDP #### [facility] [address] [place] [address] [place]. [place], [facility]83 Control Cabinet Assembler: David Montez MD Abs.Imm.Granulocyte <0.03 Normal 0.00-0.30 [facility] Comment on above: Performed By: #### YULIYA COUGHLIN, CDP #### [facility] [address] [place], [facility]83 Control Cabinet Assembler: David Montez MD Abs.Neutrophil (Seg) 5.76 k/uL Normal 1.50-8.10 [facility] Comment on above: Performed By: #### Rick KENNEY IPF, CDP #### [facility] [address] [place], [place] [id number] Control Cabinet Assembler: David Montez MD Basophils/100 WBC (Bld) 1 % Normal 0-2 [facility] Comment on above: Performed By: #### YULIYA COUGHLIN, CDP #### [facility] [address] [place], [facility]83 Control Cabinet Assembler: David Montez MD Eosinophils (Bld) [#/Vol] 0.19 10*3/uL Normal 0.00-0.44 [facility] Comment on above: Performed By: #### YULIYA COUGHLIN, CDP #### [address] [place], [place] [address]83 Control Cabinet Assembler: David Montez MD Eosinophils/100 WBC (Bld) 2 % Normal 1-4 [facility] Comment on above: Performed By: #### YULIYA COUGHLIN, CDP #### [address] [place] [id number] Control Cabinet Assembler: David Montez MD Erythrocyte distribution width (RBC) [Ratio] 12.6 % Normal 11.8-14.4 [facility] Comment on above: Performed By: #### YULIYA COUGHLIN, CDP #### [address] [place] [id number] Control Cabinet Assembler: David Montez MD Hematocrit (Bld) [Volume fraction] 32.3 % Low 40.7-50.3 [facility] Comment on above: Performed By: #### YULIYA COUGHLIN, CDP #### [address] [place] [id number] Control Cabinet Assembler: David Montez MD Hemoglobin (Bld) [Mass/Vol] 10.7 g/dL Low 13.0-17.0 [facility] Comment on above: Performed By: #### YULIYA COUGHLIN, CDP #### [address] [place], [facility]83 Control Cabinet Assembler: David Montez MD Immature granulocytes/100 WBC (Bld) 0 % Normal 0 [facility] Comment on above: Performed By: #### YULYIA COUGHLIN, CDP #### [address] [place], [place] [phone] Control Cabinet Assembler: David Montez MD Lymphocytes (Bld) [#/Vol] 1.61 10*3/uL Normal 1.10-3.70 [facility] Comment on above: Performed By: #### YULIYA COUGHLIN, CDP #### [address] [place], [place] 815[address]83 Control Cabinet Assembler: David Montez MD Lymphocytes/100 WBC (Bld) 19 % Low 24-43 [facility] Comment on above: Performed By: #### YULIYA COUGHLIN, CDP #### [address] [place], [place] 101[address]83 Control Cabinet Assembler: David Montez MD MCH (RBC) [Entitic mass] 32.9 pg Normal 25.2-33.5 [facility] Comment on above: Performed By: #### YULIYA COUGHLIN, CDP #### [address] [place] [address] Control Cabinet Assembler: David Montez MD MCHC (RBC) [Mass/Vol] 33.1 g/dL Normal 28.4-34.8 [facility] Comment on above: Performed By: #### YULIYA COUGHLIN, CDP #### [address] [place], [place] [phone] Control Cabinet Assembler: David Montez MD MCV (RBC) [Entitic vol] 99.4 fL Normal 82.6-102.9 [facility] Comment on above: Performed By: #### YULIYA COUGHLIN, CDP #### [address] [place], [place] [phone] Control Cabinet Assembler: David Montez MD Monocytes (Bld) [#/Vol] 0.69 10*3/uL Normal 0.10-1.20 [facility] Comment on above: Performed By: #### YULIYA COUGHLIN, CDP #### [address] [place] [address] Control Cabinet Assembler: David Montez MD Monocytes/100 WBC (Bld) 8 % Normal 3-12 [facility] Comment on above: Performed By: #### YULIYA COUGHLIN, CDP #### [facility] [address] [place] [address] Control Cabinet Assembler: David Montez MD Neutrophil (Seg) 70 % High 36-65 [facility] Comment on above: Performed By: #### YULIYA COUGHLIN, CDP #### [facility] [address] [place], [facility]83 Control Cabinet Assembler: David Montez MD NRBC Automated 0.0 per 100 WBC Normal 0.0 [facility] Comment on above: Performed By: #### YULIYA COUGHLIN, CDP #### [facility] [address] [place], [place] [phone] Control Cabinet Assembler: David Montez MD Platelet mean volume (Bld) [Entitic vol] 9.0 fL Normal 8.1-13.5 [facility] Comment on above: Performed By: #### YULIYA COUGHLIN, CDP #### [facility] [address] [place], [place] [phone] Control Cabinet Assembler: David Montez MD Platelets (Bld) [#/Vol] 236 10*3/uL Normal 138-453 [facility] Comment on above: Performed By: #### YULIYA COUGHLIN, CDP #### [facility] [address] [place], [place] [id number] ([address] Control Cabinet Assembler: David Montez MD RBC (Bld) [#/Vol] 3.25 10*6/uL Low 4.21-5.77 [facility] Comment on above: Performed By: #### YULIYA COUGHLIN, CDP #### [facility] [address] [place], [place] [phone] Control Cabinet Assembler: David Montez MD WBC (Bld) [#/Vol] 8.3 10*3/uL Normal 3.5-11.3 [facility] Comment on above: Performed By: #### R EJEC, IPF, CDP #### [facility] [address] [place] [address] Control Cabinet Assembler: David Montez MD Basic Metab w/rfx MGon 06-14 Anion gap [Moles/Vol] 7 mmol/L Low 9-17 [facility] Comment on above: Performed By: #### C DP, BMPX #### [facility] [address] [place], [place] 24[address] Control Cabinet Assembler: David Montez MD BUN/CRE Ratio 11 Normal 9-20 [facility] Comment on above: Performed By: #### C DP, BMPX #### [facility] [address] [place], [place] [phone] Control Cabinet Assembler: David Montez MD Calcium [Mass/Vol] 8.5 mg/dL Low 8.6-10.4 [facility] Comment on above: Performed By: #### C DP, BMPX #### [facility] [address] [place], [place] [phone] Control Cabinet Assembler: David Montez MD Chloride [Moles/Vol] 106 mmol/L Normal 98-107 [facility] Comment on above: Performed By: #### C DP, BMPX #### [facility] [address] [place], [place] [address] Control Cabinet Assembler: David Montez MD CO2 [Moles/Vol] 25 mmol/L Normal 20-31 [facility] Comment on above: Performed By: #### C DP, BMPX #### [facility] [address] [place] [address] Control Cabinet Assembler: David Montez MD Creatinine [Mass/Vol] 0.91 mg/dL Normal 0.70-1.20 [facility] Comment on above: Performed By: #### C DP, BMPX #### [facility] [address] [place] [address] Control Cabinet Assembler: David Montez MD GFR/1.73 sq M.predicted among non-blacks MDRD (S/P/Bld) [Vol rate/Area] mL/min/{1.73_m2} Normal >60 [facility] Comment on above: Result Comment: These results are not intended for use in patients <18 years of age. eGFR results are calculated without a race factor using the 2020 CKD-EPI equation. Careful clinical correlation is recommended, particularly when comparing to results calculated using previous equations. The CKD-EPI equation is less accurate in patients with extremes of muscle mass, extra-renal metabolism of creatine, excessive creatine ingestion, or following therapy that affects renal tubular secretion. Performed By: #### C DP, BMPX #### [facility] [address] [place] [address] Control Cabinet Assembler: David Montez MD Glucose [Mass/Vol] 85 mg/dL Normal 70-99 [facility] Comment on above: Performed By: #### C DP, BMPX #### [facility] [address] [place] [address] Control Cabinet Assembler: David Montez MD Potassium [Moles/Vol] 4.4 mmol/L Normal 3.7-5.3 [facility] Comment on above: Performed By: #### C DP, BMPX #### [facility] [address] [place] [address] Control Cabinet Assembler: David Montez MD Sodium [Moles/Vol] 138 mmol/L Normal 135-144 [facility] Comment on above: Performed By: #### C DP, BMPX #### [facility] [address] [place] [address] Control Cabinet Assembler: David Montez MD Urea nitrogen [Mass/Vol] 10 mg/dL Normal 8-23 [facility] Comment on above: Performed By: #### C DP, BMPX #### [facility] [address] [place] [address] Control Cabinet Assembler: David Montez MD CBC with Diffon 06-14-2022 Abs. Basophil 0.03 k/uL Normal 0.00-0.20 [facility] Comment on above: Performed By: #### C DP, BMPX #### [address] [place], [place] [phone] Control Cabinet Assembler: David Montez MD Abs.Imm.Granulocyte <0.03 Normal 0.00-0.30 [facility] Comment on above: Performed By: #### C DP, BMPX #### [address] [place], [place] [address] Control Cabinet Assembler: David Montez MD Abs.Neutrophil (Seg) 4.28 k/uL Normal 1.50-8.10 [facility] Comment on above: Performed By: #### C DP, BMPX #### [address] [place], [facility]83 Control Cabinet Assembler: David Montez MD Basophils/100 WBC (Bld) 0 % Normal 0-2 [facility] Comment on above: Performed By: #### C DP, BMPX #### [address] [place], [place] [address] Control Cabinet Assembler: David Montez MD Eosinophils (Bld) [#/Vol] 0.44 10*3/uL Normal 0.00-0.44 [facility] Comment on above: Performed By: #### C DP, BMPX #### [address] [place], [place] [id number] Control Cabinet Assembler: David Montez MD Eosinophils/100 WBC (Bld) 6 % High 1-4 [facility] Comment on above: Performed By: #### C DP, BMPX #### [facility] [address] [place] [address] Dr. [place], [facility]83 Control Cabinet Assembler: David Montez MD Erythrocyte distribution width (RBC) [Ratio] 12.6 % Normal 11.8-14.4 [facility] Comment on above: Performed By: #### C DP, BMPX #### [facility] [address] [place] [address] [place]. [place], [place] [id number] Control Cabinet Assembler: David Montez MD Hematocrit (Bld) [Volume fraction] 31.3 % Low 40.7-50.3 [facility] Comment on above: Performed By: #### C DP, BMPX #### [facility] [address] [place] [address] [place] [address] Control Cabinet Assembler: David Montez MD Hemoglobin (Bld) [Mass/Vol] 10.2 g/dL Low 13.0-17.0 [facility] Comment on above: Performed By: #### C DP, BMPX #### [address] [place], [facility]83 Control Cabinet Assembler: David Montez MD Immature granulocytes/100 WBC (Bld) 0 % Normal 0 [facility] Comment on above: Performed By: #### C DP, BMPX #### [address] [place] [address] Control Cabinet Assembler: David Montez MD Lymphocytes (Bld) [#/Vol] 1.62 10*3/uL Normal 1.10-3.70 [facility] Comment on above: Performed By: #### C DP, BMPX #### [facility] [address] [place] [address] Dr. [place], [place] [id number] Control Cabinet Assembler: David Montez MD Lymphocytes/100 WBC (Bld) 23 % Low 24-43 [facility] Comment on above: Performed By: #### C DP, BMPX #### [facility] [address] [place], [place] [id number] Control Cabinet Assembler: David Montez MD MCH (RBC) [Entitic mass] 33.0 pg Normal 25.2-33.5 [facility] Comment on above: Performed By: #### C DP, BMPX #### [facility] [address] [place], [place] [address] Control Cabinet Assembler: David Montez MD MCHC (RBC) [Mass/Vol] 32.6 g/dL Normal 28.4-34.8 [facility] Comment on above: Performed By: #### C DP, BMPX #### [facility] [address] [place], [facility]83 Control Cabinet Assembler: David Montez MD MCV (RBC) [Entitic vol] 101.3 fL Normal 82.6-102.9 [facility] Comment on above: Performed By: #### C DP, BMPX #### [address] [place] [id number] Control Cabinet Assembler: David Montez MD Monocytes (Bld) [#/Vol] 0.54 10*3/uL Normal 0.10-1.20 [facility] Comment on above: Performed By: #### C DP, BMPX #### [address] [place], [place] [phone] Control Cabinet Assembler: David Montez MD Monocytes/100 WBC (Bld) 8 % Normal 3-12 [facility] Comment on above: Performed By: #### C DP, BMPX #### [address] [place], [facility]83 Control Cabinet Assembler: David Montez MD Neutrophil (Seg) 63 % Normal 36-65 [facility] Comment on above: Performed By: #### C DP, BMPX #### [address] [place], [place] [id number] Control Cabinet Assembler: David Montez MD NRBC Automated 0.0 per 100 WBC Normal 0.0 [facility] Comment on above: Performed By: #### C DP, BMPX #### [facility] [address] [place], [place] [id number] Control Cabinet Assembler: David Montez MD Platelet mean volume (Bld) [Entitic vol] 9.0 fL Normal 8.1-13.5 [facility] Comment on above: Performed By: #### C DP, BMPX #### [facility] [address] [place], [place] [phone] Control Cabinet Assembler: David Montez MD Platelets (Bld) [#/Vol] 200 10*3/uL Normal 138-453 [facility] Comment on above: Performed By: #### C DP, BMPX #### [address] [place] [address] Control Cabinet Assembler: David Montez MD RBC (Bld) [#/Vol] 3.09 10*6/uL Low 4.21-5.77 [facility] Comment on above: Performed By: #### C DP, BMPX #### [address] [place], [place] [phone] Control Cabinet Assembler: David Montez MD WBC (Bld) [#/Vol] 6.9 10*3/uL Normal 3.5-11.3 [facility] Comment on above: Performed By: #### C DP, BMPX #### [address] [place], [facility]83 Control Cabinet Assembler: David Montez MD XR ABDOMEN (2 VIEWS)on 06-14 XR ABDOMEN (2 VIEWS) EXAMINATION: TWO XRAY VIEWS OF THE ABDOMEN 06/14/2022 7:56 am COMPARISON: Abdominal radiographs 06/13/2022. HISTORY: ORDERING SYSTEM PROVIDED HISTORY: ileus vs sbo TECHNOLOGIST PROVIDED HISTORY: ileus vs sbo FINDINGS: There is a nonspecific bowel gas pattern with a few scattered air-filled loops of bowel. There is no free air. There are no suspicious calcifications. There is no acute osseous abnormality. The surrounding soft tissues are unremarkable. IMPRESSION: Few air-filled loops of bowel that may relate to an ileus. No convincing evidence for obstruction. Interpreted by: Toby Lofton MD Signed by: Toby Lofton MD 06/14/22 Final result Normal [facility] Basic Metab w/rfx MGon 06-13 Anion gap [Moles/Vol] 8 mmol/L Low 9-17 [facility] Comment on above: Performed By: #### C DP, BMPX #### [facility] [address] [place], [place] 0807683 Control Cabinet Assembler: David Montez MD BUN/CRE Ratio 16 Normal 9-20 [facility] Comment on above: Performed By: #### C DP, BMPX #### [facility] [address] [place], [place] [phone] Control Cabinet Assembler: David Montez MD Calcium [Mass/Vol] 8.9 mg/dL Normal 8.6-10.4 [facility] Comment on above: Performed By: #### C DP, BMPX #### [facility] [address] [place], [place] [phone] Control Cabinet Assembler: David Montez MD Chloride [Moles/Vol] 102 mmol/L Normal 98-107 [facility] Comment on above: Performed By: #### C DP, BMPX #### [address] [place], [place] [phone] Control Cabinet Assembler: David Montez MD CO2 [Moles/Vol] 31 mmol/L Normal 20-31 [facility] Comment on above: Performed By: #### C DP, BMPX #### [facility] [address] [place], [place] [phone] Control Cabinet Assembler: David Montez MD Creatinine [Mass/Vol] 1.04 mg/dL Normal 0.70-1.20 [facility] [place] Comment on above: Performed By: #### C DP, BMPX #### [facility] [address] [place], [place] [phone] Control Cabinet Assembler: David Montez MD GFR/1.73 sq M.predicted among non-blacks MDRD (S/P/Bld) [Vol rate/Area] mL/min/{1.73_m2} Normal >60 [facility] Comment on above: Result Comment: These results are not intended for use in patients <18 years of age. eGFR results are calculated without a race factor using the 2020 CKD-EPI equation. Careful clinical correlation is recommended, particularly when comparing to results calculated using previous equations. The CKD-EPI equation is less accurate in patients with extremes of muscle mass, extra-renal metabolism of creatine, excessive creatine ingestion, or following therapy that affects renal tubular secretion. Performed By: #### C DP, BMPX #### [address] [place] [address] Control Cabinet Assembler: David Montez MD Glucose [Mass/Vol] 92 mg/dL Normal 70-99 [facility] Comment on above: Performed By: #### C DP, BMPX #### [facility] [address] [place] [address] [place] [address] Control Cabinet Assembler: David Montez MD Potassium [Moles/Vol] 3.9 mmol/L Normal 3.7-5.3 [facility] Comment on above: Performed By: #### C DP, BMPX #### [address] [place] [address] Control Cabinet Assembler: David Montez MD Sodium [Moles/Vol] 141 mmol/L Normal 135-144 [facility] Comment on above: Performed By: #### C DP, BMPX #### [address] [place] [address] Control Cabinet Assembler: David Montez MD Urea nitrogen [Mass/Vol] 17 mg/dL Normal 8-23 [facility] Comment on above: Performed By: #### C DP, BMPX #### [facility] [address] [place] [address] [place] [address] Control Cabinet Assembler: David Montez MD CBC with Diffon 06-13-2022 Abs. Basophil 0.03 k/uL Normal 0.00-0.20 [facility] Comment on above: Performed By: #### C DP, BMPX #### [facility] [address] [place] [address] [place] [address] Control Cabinet Assembler: David Montez MD Abs.Imm.Granulocyte <0.03 Normal 0.00-0.30 [facility] Comment on above: Performed By: #### C DP, BMPX #### [address] [place] [address] Control Cabinet Assembler: David Montez MD Abs.Neutrophil (Seg) 5.42 k/uL Normal 1.50-8.10 [facility] Comment on above: Performed By: #### C DP, BMPX #### [address] [place], [place] [address] Control Cabinet Assembler: David Montez MD Basophils/100 WBC (Bld) 0 % Normal 0-2 [facility] Comment on above: Performed By: #### C DP, BMPX #### [address] [place] [address] Control Cabinet Assembler: David Montez MD Eosinophils (Bld) [#/Vol] 0.44 10*3/uL Normal 0.00-0.44 [facility] Comment on above: Performed By: #### C DP, BMPX #### [facility] [address] [place] [address] [place] [address] Control Cabinet Assembler: David Montez MD Eosinophils/100 WBC (Bld) 5 % High 1-4 [facility] Comment on above: Performed By: #### C DP, BMPX #### [address] [place] [address] Control Cabinet Assembler: David Montez MD Erythrocyte distribution width (RBC) [Ratio] 13.2 % Normal 11.8-14.4 [facility] Comment on above: Performed By: #### C DP, BMPX #### [facility] [address] [place] [address] Control Cabinet Assembler: David Montez MD Hematocrit (Bld) [Volume fraction] 32.8 % Low 40.7-50.3 [facility] Comment on above: Performed By: #### C DP, BMPX #### [facility] [address] [place] [address] Control Cabinet Assembler: David Montez MD Hemoglobin (Bld) [Mass/Vol] 10.6 g/dL Low 13.0-17.0 [facility] Comment on above: Performed By: #### C DP, BMPX #### [address] [place] [phone] Control Cabinet Assembler: David Montez MD Immature granulocytes/100 WBC (Bld) 0 % Normal 0 [facility] Comment on above: Performed By: #### C DP, BMPX #### [address] [place] [address] Control Cabinet Assembler: David Montez MD Lymphocytes (Bld) [#/Vol] 1.64 10*3/uL Normal 1.10-3.70 [facility] Comment on above: Performed By: #### C DP, BMPX #### [address] [place], [facility]83 Control Cabinet Assembler: David Montez MD Lymphocytes/100 WBC (Bld) 20 % Low 24-43 [facility] Comment on above: Performed By: #### C DP, BMPX #### [address] [place] [phone] Control Cabinet Assembler: David Montez MD MCH (RBC) [Entitic mass] 32.6 pg Normal 25.2-33.5 [facility] Comment on above: Performed By: #### C DP, BMPX #### [facility] [address] [place], [place] [phone] Control Cabinet Assembler: David Montez MD MCHC (RBC) [Mass/Vol] 32.3 g/dL Normal 28.4-34.8 [facility] Comment on above: Performed By: #### C DP, BMPX #### [facility] [address] [place] [address] Control Cabinet Assembler: David Montez MD MCV (RBC) [Entitic vol] 100.9 fL Normal 82.6-102.9 [facility] Comment on above: Performed By: #### C DP, BMPX #### [address] [place] [id number] Control Cabinet Assembler: David Montez MD Monocytes (Bld) [#/Vol] 0.69 10*3/uL Normal 0.10-1.20 [facility] Comment on above: Performed By: #### C DP, BMPX #### [address] [place], [place] 1166483 Control Cabinet Assembler: David Montez MD Monocytes/100 WBC (Bld) 8 % Normal 3-12 [facility] Comment on above: Performed By: #### C DP, BMPX #### [address] [place] [address] Control Cabinet Assembler: David Montez MD Neutrophil (Seg) 67 % High 36-65 [facility] Comment on above: Performed By: #### C DP, BMPX #### [address] [place], [place] [phone] Control Cabinet Assembler: David Montez MD NRBC Automated 0.0 per 100 WBC Normal 0.0 [facility] Comment on above: Performed By: #### C DP, BMPX #### [facility] [address] [place], [place] 7111983 Control Cabinet Assembler: David Montez MD Platelet mean volume (Bld) [Entitic vol] 8.9 fL Normal 8.1-13.5 [facility] Comment on above: Performed By: #### C DP, BMPX #### [facility] [address] [place], [place] [phone] Control Cabinet Assembler: David Montez MD Platelets (Bld) [#/Vol] 217 10*3/uL Normal 138-453 [facility] Comment on above: Performed By: #### C DP, BMPX #### [facility] [address] [place] [address] Control Cabinet Assembler: David Montez MD RBC (Bld) [#/Vol] 3.25 10*6/uL Low 4.21-5.77 [facility] Comment on above: Performed By: #### C DP, BMPX #### [address] [place], [place] [phone] Control Cabinet Assembler: David Montez MD WBC (Bld) [#/Vol] 8.2 10*3/uL Normal 3.5-11.3 [facility] Comment on above: Performed By: #### C DP, BMPX #### [address] [place], [place] 6166983 Control Cabinet Assembler: David Montez MD Cult,Urineon 06-13-2022 Cult,Urine Specimen Description .CLEAN CATCH URINE Culture STREPTOCOCCI, BETA HEMOLYTIC GROUP C >[id number] CFU/ML Report Status FINAL 06/13/2022 Abnormal [facility] Comment on above: Performed By: #### C DP, BMPX #### [address] [place] [address] Control Cabinet Assembler: David Montez MD XR ABDOMEN (2 VIEWS)on 06-13 XR ABDOMEN (2 VIEWS) EXAMINATION: TWO XRAY VIEWS OF THE ABDOMEN 06/13/2022 8:18 am COMPARISON: 06/12/2022 CT. HISTORY: ORDERING SYSTEM PROVIDED HISTORY: Ileus versus small bowel obstruction TECHNOLOGIST PROVIDED HISTORY: Ileus versus small bowel obstruction FINDINGS: Multiple air-filled distended loops of small bowel noted throughout the abdomen and pelvis. However, there is also still air noted within the colon and rectum. Findings suggest a partial bowel obstruction versus ileus. Enteric tube is noted in the stomach. No evidence of pneumoperitoneum. IMPRESSION: Findings suggesting a partial bowel obstruction versus ileus. Bowel distension has improved since prior CT. No free air. Interpreted by: Greg Hernandez MD Signed by: Greg Hernandez MD 06/13/22 Final result Normal [facility] CBC with Diffon 06-12-2022 Abs. Basophil 0.04 k/uL Normal 0.00-0.20 [facility] Comment on above: Performed By: #### C DP, CP, MG #### [facility] [address] [place] [address] [place] [address] Control Cabinet Assembler: David Montez MD Abs.Imm.Granulocyte 0.04 k/uL Normal 0.00-0.30 [facility] Comment on above: Performed By: #### C DP, CP, MG #### [address] [place] [phone] Control Cabinet Assembler: David Montez MD Abs.Neutrophil (Seg) 9.37 k/uL High 1.50-8.10 [facility] Comment on above: Performed By: #### C DP, CP, MG #### [address] [place] [phone] Control Cabinet Assembler: David Montez MD Basophils/100 WBC (Bld) 0 % Normal 0-2 [facility] Comment on above: Performed By: #### C DP, CP, MG #### [address] [place] [address] Control Cabinet Assembler: David Montez MD Eosinophils (Bld) [#/Vol] 0.06 10*3/uL Normal 0.00-0.44 [facility] Comment on above: Performed By: #### C DP, CP, MG #### [facility] [address] [place], [place] [address] Control Cabinet Assembler: David Montez MD Eosinophils/100 WBC (Bld) 1 % Normal 1-4 [facility] Comment on above: Performed By: #### C DP, CP, MG #### [facility] [address] [place], [place] [address] Control Cabinet Assembler: David Montez MD Erythrocyte distribution width (RBC) [Ratio] 13.1 % Normal 11.8-14.4 [facility] Comment on above: Performed By: #### C DP, CP, MG #### [address] [place] [address] Control Cabinet Assembler: David Montez MD Hematocrit (Bld) [Volume fraction] 38.8 % Low 40.7-50.3 [facility] Comment on above: Performed By: #### C DP, CP, MG #### [address] [place], [place] [address] Control Cabinet Assembler: David Montez MD Hemoglobin (Bld) [Mass/Vol] 12.5 g/dL Low 13.0-17.0 [facility] Comment on above: Performed By: #### C DP, CP, MG #### [address] [place], [place] [address] Control Cabinet Assembler: David Montez MD Immature granulocytes/100 WBC (Bld) 0 % Normal 0 [facility] Comment on above: Performed By: #### C DP, CP, MG #### [address] [place], [facility]83 Control Cabinet Assembler: David Montez MD Lymphocytes (Bld) [#/Vol] 0.84 10*3/uL Low 1.10-3.70 [facility] Comment on above: Performed By: #### C DP, CP, MG #### [facility] [address] [place], [place] [address] Control Cabinet Assembler: David Montez MD Lymphocytes/100 WBC (Bld) 8 % Low 24-43 [facility] Comment on above: Performed By: #### C DP, CP, MG #### [address] [place], [facility]83 Control Cabinet Assembler: David Montez MD MCH (RBC) [Entitic mass] 32.9 pg Normal 25.2-33.5 [facility] Comment on above: Performed By: #### C DP, CP, MG #### [address] [place], [place] [address] Control Cabinet Assembler: David Montez MD MCHC (RBC) [Mass/Vol] 32.2 g/dL Normal 28.4-34.8 [facility] Comment on above: Performed By: #### C DP, CP, MG #### [address] [place], [place] [address] Control Cabinet Assembler: David Montez MD MCV (RBC) [Entitic vol] 102.1 fL Normal 82.6-102.9 [facility] Comment on above: Performed By: #### C DP, CP, MG #### [address] [place], [place] [address] Control Cabinet Assembler: David Montez MD Monocytes (Bld) [#/Vol] 0.53 10*3/uL Normal 0.10-1.20 [facility] Comment on above: Performed By: #### C DP, CP, MG #### [address] [place], [facility]83 Control Cabinet Assembler: David Montez MD Monocytes/100 WBC (Bld) 5 % Normal 3-12 [facility] Comment on above: Performed By: #### C DP, CP, MG #### [address] [place], [place] [phone] Control Cabinet Assembler: David Montez MD Neutrophil (Seg) 86 % High 36-65 [facility] Comment on above: Performed By: #### C DP, CP, MG #### [address] [place], [place] 1630783 Control Cabinet Assembler: David Montez MD NRBC Automated 0.0 per 100 WBC Normal 0.0 [facility] Comment on above: Performed By: #### C DP, CP, MG #### [address] [place], [place] [phone] Control Cabinet Assembler: David Montez MD Platelet mean volume (Bld) [Entitic vol] 9.0 fL Normal 8.1-13.5 [facility] Comment on above: Performed By: #### C DP, CP, MG #### [address] [place], [facility]83 Control Cabinet Assembler: David Montez MD Platelets (Bld) [#/Vol] 261 10*3/uL Normal 138-453 [facility] Comment on above: Performed By: #### C DP, CP, MG #### [address] [place], [place] 2730783 Control Cabinet Assembler: David Montez MD RBC (Bld) [#/Vol] 3.80 10*6/uL Low 4.21-5.77 [facility] Comment on above: Performed By: #### C DP, CP, MG #### [address] [place], [place] 3909683 Control Cabinet Assembler: David Montez MD WBC (Bld) [#/Vol] 10.9 10*3/uL Normal 3.5-11.3 [facility] Comment on above: Performed By: #### C DP, CP, MG #### [address] [place], [place] [phone] Control Cabinet Assembler: David Montez MD CT ABDOMEN PELVIS WO CONTRAS Ton 06-12-2022 CT ABDOMEN PELVIS WO CONTRAST EXAMINATION: CT OF THE ABDOMEN AND PELVIS WITHOUT CONTRAST 06/12/2022 12:34 pm TECHNIQUE: CT of the abdomen and pelvis was performed without the administration of intravenous contrast. Multiplanar reformatted images are provided for review. Automated exposure control, iterative reconstruction, and/or weight based adjustment of the mA/kV was utilized to reduce the radiation dose to as low as reasonably achievable. COMPARISON: October 25, 2013 HISTORY: ORDERING SYSTEM PROVIDED HISTORY: Concern for SBO TECHNOLOGIST PROVIDED HISTORY: Concern for SBO. FINDINGS: Lower Chest: Lung bases demonstrate atelectatic changes. Organs: The liver, gallbladder, pancreas and spleen, adrenals kidneys aorta and IVC appear stable. Left kidney demonstrates capsular calcification and an encapsulated fluid collection possibly old hematoma. A left renal cyst also appears calcified measuring 1.9 cm. No obvious solid renal masses. GI/Bowel: Severe distension of the stomach and small bowel. Small bowel anastomosis in left lower quadrant may represent a transition point. No evidence of free air. Large bowel appears unremarkable. Mild constipation. Pelvis: Urinary bladder appears unremarkable. Prostate and seminal vesicles appear stable. No evidence of pelvic lymphadenopathy. Peritoneum/Retroperi toneum: No evidence of retroperitoneal lymphadenopathy or acute mesenteric findings. Bones/Soft Tissues: No acute abnormality. IMPRESSION: 1. Suggestion of small-bowel obstruction with distended stomach and small bowel loops with a transition point likely in the left lower quadrant and an area of anastomosis. 2. No evidence of bowel perforation or free air. 3. Calcified left renal subcapsular collection which may represent an old hematoma. No evidence of renal stones or obstructive uropathy. 4. Bilateral lower lobe atelectatic changes. RECOMMENDATIONS: Surgery consultation for small bowel obstruction. Interpreted by: Concha Garza MD Signed by: Concha Garza MD 06/12/22 Final result Normal [facility] CT HEAD WO CONTRASTon 2022 CT HEAD WO CONTRAST EXAMINATION: CT OF THE HEAD WITHOUT CONTRAST 06/12/2022 10:00 am TECHNIQUE: CT of the head was performed without the administration of intravenous contrast. Automated exposure control, iterative reconstruction, and/or weight based adjustment of the mA/kV was utilized to reduce the radiation dose to as low as reasonably achievable. COMPARISON: 09/10/2021. HISTORY: ORDERING SYSTEM PROVIDED HISTORY: AMS TECHNOLOGIST PROVIDED HISTORY: AMS Decision Support Exception - unselect if not a suspected or confirmed emergency medical condition->Emergency Medical Condition (MA) FINDINGS: BRAIN/VENTRICLES: The cerebral and cerebellar parenchyma demonstrate volume loss. 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 There are scattered low-attenuation areas in the periventricular white matter, compatible with chronic microvascular white matter ischemic disease. There are no areas of hemorrhage, mass, or midline shift. No abnormal extra-axial fluid collections. Romano-white differentiation is otherwise maintained. ORBITS: There is a suspected left orbital floor fracture. The orbits are otherwise unremarkable. SINUSES: There is scattered paranasal sinus disease with greatest involvement in the left maxillary sinus and posterior left ethmoid air cells. Mastoid air cells are clear. Cerumen is noted in the external auditory canals. SOFT TISSUES/SKULL: The calvarium is intact. No appreciable scalp soft tissue swelling. IMPRESSION: 1. No acute intracranial abnormality. 2. 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 3. Chronic microvascular white matter ischemic disease. Interpreted by: Gagan Rowe MD Signed by: Gagan Rowe MD 06/12/22 Final result Normal [facility] Comp Metabolic Profon 2022 Albumin [Mass/Vol] 4.3 g/dL Normal 3.5-5.2 [facility] Comment on above: Performed By: #### C DP, CP, MG #### [facility] [address] [place] [address] [place] [address] Control Cabinet Assembler: David Montez MD Albumin/Glob Ratio 1.2 Normal 1.0-2.5 [facility] Comment on above: Performed By: #### C CAROLA, CP, MG #### [facility] [address] [place] [address] Control Cabinet Assembler: David Montez MD Alkaline Phos 149 U/L High 40-129 [facility] Comment on above: Performed By: #### C DP, CP, MG #### [facility] [address] [place] [id number] Control Cabinet Assembler: David Montez MD ALT [Catalytic activity/Vol] 16 U/L Normal 5-41 [facility] Comment on above: Performed By: #### C DP, CP, MG #### [facility] [address] [place], [place] [id number] Control Cabinet Assembler: David Montez MD Anion gap [Moles/Vol] 9 mmol/L Normal 9-17 [facility] Comment on above: Performed By: #### C DP, CP, MG #### [facility] [address] [place], [place] [phone] Control Cabinet Assembler: David Montez MD AST [Catalytic activity/Vol] 16 U/L Normal <40 [facility] Comment on above: Performed By: #### C DP, CP, MG #### [facility] [address] [place], [place] [phone] Control Cabinet Assembler: David Montez MD Bilirubin [Mass/Vol] 0.3 mg/dL Normal 0.3-1.2 [facility] Comment on above: Performed By: #### C DP, CP, MG #### [facility] [address] [place], [place] [phone] Control Cabinet Assembler: David Montez MD BUN/CRE Ratio 13 Normal 9-20 [facility] Comment on above: Performed By: #### C DP, CP, MG #### [facility] [address] [place], [place] [id number] Control Cabinet Assembler: David Montez MD Calcium [Mass/Vol] 9.9 mg/dL Normal 8.6-10.4 [facility] Comment on above: Performed By: #### C DP, CP, MG #### [facility] [address] [place], [place] [id number] Control Cabinet Assembler: David Montez MD Chloride [Moles/Vol] 101 mmol/L Normal 98-107 [facility] Comment on above: Performed By: #### C DP, CP, MG #### [facility] [address] [place] [address] Control Cabinet Assembler: David Montez MD CO2 [Moles/Vol] 32 mmol/L High 20-31 [facility] Comment on above: Performed By: #### C DP, CP, MG #### [facility] [address] [place] [address] Control Cabinet Assembler: David Montez MD Creatinine [Mass/Vol] 1.18 mg/dL Normal 0.70-1.20 [facility] Comment on above: Performed By: #### C DP, CP, MG #### [facility] [address] [place] [address] Control Cabinet Assembler: David Montez MD GFR/1.73 sq M.predicted among non-blacks MDRD (S/P/Bld) [Vol rate/Area] mL/min/{1.73_m2} Normal >60 [facility] Comment on above: Result Comment: These results are not intended for use in patients <18 years of age. eGFR results are calculated without a race factor using the 2020 CKD-EPI equation. Careful clinical correlation is recommended, particularly when comparing to results calculated using previous equations. The CKD-EPI equation is less accurate in patients with extremes of muscle mass, extra-renal metabolism of creatine, excessive creatine ingestion, or following therapy that affects renal tubular secretion. Performed By: #### C DP, CP, MG #### [facility] [address] [place] [address] Control Cabinet Assembler: David Montez MD Glucose [Mass/Vol] 125 mg/dL High 70-99 [facility] Comment on above: Performed By: #### C DP, CP, MG #### [facility] [address] [place] [address] Control Cabinet Assembler: David Montez MD Potassium [Moles/Vol] 3.6 mmol/L Low 3.7-5.3 [facility] Comment on above: Performed By: #### C DP, CP, MG #### [address] [place], [place] [phone] Control Cabinet Assembler: David Montez MD Protein [Mass/Vol] 7.8 g/dL Normal 6.4-8.3 [facility] Comment on above: Performed By: #### C DP, CP, MG #### [address] [place], [place] [phone] Control Cabinet Assembler: David Montez MD Sodium [Moles/Vol] 142 mmol/L Normal 135-144 [facility] Comment on above: Performed By: #### C DP, CP, MG #### [address] [place], [place] [phone] Control Cabinet Assembler: David Montez MD Urea nitrogen [Mass/Vol] 15 mg/dL Normal 8-23 [facility] Comment on above: Performed By: #### C DP, CP, MG #### [address] [place], [place] [phone] Control Cabinet Assembler: David Montez MD Lactate, Sepsison 06-12-2022 Lactic Acid, Sepsis 1.5 mmol/L Normal 0.5-1.9 [facility] Comment on above: Performed By: #### R EJEC, IPF, CDP #### [address] [place], [place] 7371283 Control Cabinet Assembler: David Montez MD Magnesiumon 06-12-2022 Magnesium [Mass/Vol] 1.8 mg/dL Normal 1.6-2.6 [facility] Comment on above: Performed By: #### C DP, CP, MG #### [address] [place], [place] [phone] Control Cabinet Assembler: David Montez MD Urinalysis w/ Microon 2022 Amorphous sediment LM Ql (Urine sed) 2+ Abnormal NONE [facility] Comment on above: Performed By: #### R ANNE MARIE, IPF, CDP #### [facility] [address] [place] [address] Dr. [place], [place] [phone] Control Cabinet Assembler: David Montez MD Bacteria 2+ Abnormal NONE [facility] Comment on above: Performed By: #### R ANNE MARIE, IPF, CDP #### [facility] [address] [place] [address] Dr. [place], [place] [phone] Control Cabinet Assembler: David Montez MD Bilirubin, SemiQt,Ur Negative Normal NEG [facility] Comment on above: Performed By: #### R ANNE MARIE IPF, CDP #### [address] [place], [place] [phone] Control Cabinet Assembler: David Montez MD Blood, Urine Negative Normal NEG [facility] Comment on above: Performed By: #### R ANNE MARIE IPF, CDP #### [facility] [address] [place] [address] Dr. [place], [place] [phone] Control Cabinet Assembler: David Montez MD Clarity (U) SLIGHTLY CLOUDY Abnormal CLEAR [facility] Comment on above: Performed By: #### R ANNE MARIE IPF, CDP #### [address] [place], [place] [phone] Control Cabinet Assembler: David Montez MD Color (U) Yellow Normal YEL [facility] Comment on above: Performed By: #### R ANNE MARIE IPF, CDP #### [facility] [address] [place] [address] Dr. [place], [place] [phone] Control Cabinet Assembler: David Montez MD Epithelial cells LM Ql (Urine sed) 0 TO 2 Normal 0-5 [facility] Comment on above: Performed By: #### R EJRELL, IPF, CDP #### [facility] [address] [place] [address] Dr. [place], [place] [phone] Control Cabinet Assembler: David Montez MD Glucose Ql (U) Negative Normal NEG [facility] Comment on above: Performed By: #### R EJEC, IPF, CDP #### [facility] [address] [place] [address] Dr. [place], [place] [phone] Control Cabinet Assembler: David Montez MD Ketones Ql (U) Negative Normal NEG [facility] Comment on above: Performed By: #### R ANNE MARIE, IPF, CDP #### [facility] [address] [place] [address] Dr. [place], [place] [phone] Control Cabinet Assembler: David Montez MD Leukocyte esterase Test strip Ql (U) TRACE Abnormal NEG [facility] Comment on above: Performed By: #### R ANNE MARIE IPF, CDP #### [address] [place], [place] [phone] Control Cabinet Assembler: David Montez MD Nitrite,Ur Negative Normal NEG [facility] Comment on above: Performed By: #### R ANNE MARIE IPF, CDP #### [facility] [address] [place] [address] Dr. [place], [place] [phone] Control Cabinet Assembler: David Montez MD PH,Ur 8.0 Normal 5.0-9.0 [facility] Comment on above: Performed By: #### R ANNE MARIE, IPF, CDP #### [facility] [address] [place] [address] Dr. [place], [place] [phone] Control Cabinet Assembler: David Montez MD Protein Ql (U) Negative Normal NEG [facility] Comment on above: Performed By: #### R EJEC, IPF, CDP #### [facility] [address] [place] [address] Dr. [place], [place] [phone] Control Cabinet Assembler: David Montez MD Spec. [place],Ur 1.010 Normal 1.010-1.020 [facility] Comment on above: Performed By: #### R EJRELL IPF, CDP #### [facility] [address] [place] [address] Dr. [place], [place] [phone] Control Cabinet Assembler: David Montez MD Urine RBC's 0 TO 2 Normal 0-2 [facility] Comment on above: Performed By: #### R YULIYA KENNEY, CDP #### [facility] [address] [place] [address] Control Cabinet Assembler: David Montez MD Urine WBC's 2 TO 5 Normal 0-5 [facility] Comment on above: Performed By: #### R ANNE MARIE IPF, CDP #### [facility] [address] [place], [place] [phone] Control Cabinet Assembler: David Montez MD Urobilinogen,Ur Normal Normal NORM [facility] Comment on above: Performed By: #### YULIYA COUGHLIN, CDP #### [facility] [address] [place] [address] Control Cabinet Assembler: David Montez MD Venous Blood Gaseson 023 Body Temp. 37.0 Normal [facility] Comment on above: Performed By: #### YULIYA COUGHLIN, CDP #### [facility] [address] [place] [address] Control Cabinet Assembler: David Montez MD HCO3 (Bld) [Moles/Vol] 28.5 mmol/L Normal 24.0-30.0 [facility] Comment on above: Performed By: #### YULIYA COUGHLIN, CDP #### [facility] [address] [place], [place] [phone] Control Cabinet Assembler: David Montez MD Oxygen saturation in Blood 73.6 % Normal 60.0-85.0 [facility] Comment on above: Performed By: #### R ANNE MARIE IPF, CDP #### [facility] [address] [place], [place] [phone] Control Cabinet Assembler: David Montez MD pCO2 44.8 mm Hg Normal 39-55 [facility] Comment on above: Performed By: #### R ANNE MARIE IPF, CDP #### [facility] [address] [place], [place] [phone] Control Cabinet Assembler: David Montez MD pH (Bld) 7.422 [pH] High 7.32-7.42 [facility] Comment on above: Performed By: #### R ANNE MARIE IPF, CDP #### [facility] [address] [place] [address] Control Cabinet Assembler: David Montez MD pO2 38.4 mm Hg Normal 30.0-50.0 [facility] Comment on above: Performed By: #### R YULIYA KENNEY, CDP #### [facility] [address] [place] [address] Control Cabinet Assembler: David Montez MD Positive Base Excess 3.5 mmol/L High 0.0-2.0 [facility] Comment on above: Performed By: #### YULIYA COUGHLIN, CDP #### [facility] [address] [place] [address] Control Cabinet Assembler: David Montez MD XR CHEST PORTABLEon 06-13-19 XR CHEST PORTABLE EXAMINATION: ONE XRAY VIEW OF THE CHEST 06/12/2022 1:56 pm COMPARISON: October 30, 2013 HISTORY: ORDERING SYSTEM PROVIDED HISTORY: NG placement TECHNOLOGIST PROVIDED HISTORY: NG placement FINDINGS: Nasogastric tube has been placed with the tip likely in the stomach, although lower end is not fully visualized. Mild cardiomegaly and lower lobe atelectatic changes. No evidence of pulmonary edema or active pleural disease. IMPRESSION: Nasogastric tube appears to be in adequate position with tip in the stomach, although the lower end is not fully visualized. Redemonstration of cardiomegaly and lower lobe atelectatic changes. Interpreted by: Concha Garza MD Signed by: Concha Garza MD 06/12/22 Final result Normal [facility] COVID-19, Rapidon 05-12-2022 SARS-CoV-2 (COVID-19) RdRp gene POLO+probe Ql (Resp) Not detected Not Detected [facility] Comment on above: Rapid NAAT: The specimen is NEGATIVE for SARS-CoV-2, the novel coronavirus associated with COVID-19. The ID NOW COVID-19 assay is designed to detect the virus that causes COVID-19 in patients with signs and symptoms of infection who are suspected of COVID-19. An individual without symptoms of COVID-19 and who is not shedding SARS-CoV-2 virus would expect to have a negative (not detected) result in this assay. Negative results should be treated as presumptive and, if inconsistent with clinical signs and symptoms or necessary for patient management, should be tested with an alternative molecular assay. Negative results do not preclude SARS-CoV-2 infection and should not be used as the sole basis for patient management decisions. Fact sheet for Healthcare Providers: https://www.fda.gov/media/893079/download Fact sheet for Patients: https://www.fda.gov/media/064818/download Methodology: Isothermal Nucleic Acid Amplification Specimen Description .NASOPHARYNGEAL SWAB [facility] [id number] 05-12-2022 SARS-CoV-2 (COVID-19) RNA POLO+probe Ql (Unsp spec) Not detected Normal [facility] Comment on above: Result Comment: Rapid NAAT: The specimen is NEGATIVE for SARS-CoV-2, the novel coronavirus associated with COVID-19. The ID NOW COVID-19 assay is designed to detect the virus that causes COVID-19 in patients with signs and symptoms of infection who are suspected of COVID-19. An individual without symptoms of COVID-19 and who is not shedding SARS-CoV-2 virus would expect to have a negative (not detected) result in this assay. Negative results should be treated as presumptive and, if inconsistent with clinical signs and symptoms or necessary for patient management, should be tested with an alternative molecular assay. Negative results do not preclude SARS-CoV-2 infection and should not be used as the sole basis for patient management decisions. Fact sheet for Healthcare Providers: https://www.fda.gov/media/437510/download Fact sheet for Patients: https://www.fda.gov/media/409182/download Methodology: Isothermal Nucleic Acid Amplification Performed By: #### R EJEC, IPF, CDP #### [facility] [address] [place] [address] [place] [address] Control Cabinet Assembler: David Montez MD CBC auto differentialon Absolute Eos # [facility] Absolute Immature Granulocyte 0.05 [facility] Absolute Lymph # 1.27 [facility] Absolute [place] # 0.98 [facility] Basophils (Bld) [#/Vol] 0.04 10*3/uL [facility] Basophils/100 WBC (Bld) 0 % 0 - 2 % [facility] Eosinophils/100 WBC (Bld) 0 % Low 1 - 4 % [facility] Hematocrit (Bld) [Volume fraction] 34.8 % Low 40.7 - 50.3 % [facility] Hemoglobin (Bld) [Mass/Vol] 11.4 g/dL Low 13.0 - 17.0 g/dL [facility] Immature granulocytes/100 WBC (Bld) 0 % 0 [facility] Interpretation and review of laboratory results Abnormal [facility] Lymphocytes/100 WBC (Bld) 11 % Low 24 - 43 % [facility] MCH (RBC) [Entitic mass] 34.0 pg High 25.2 - 33.5 pg [facility] MCHC (RBC) [Mass/Vol] 32.8 g/dL 28.4 - 34.8 g/dL [facility] MCV (RBC) [Entitic vol] 103.9 fL High 82.6 - 102.9 fL [facility] Monocytes/100 WBC (Bld) 9 % 3 - 12 % [facility] NRBC Automated 0.0 0.0 per 100 WBC [facility] Platelet distribution width (Bld) [Ratio] 13.0 % 11.8 - 14.4 % [facility] Platelet mean volume (Bld) [Entitic vol] 10.2 fL 8.1 - 13.5 fL [facility] Platelets (Bld) [#/Vol] 147 10*3/uL [facility] RBC (Bld) [#/Vol] 3.35 10*6/uL Low 4.21 - 5.7 7 m/uL [facility] Segmented neutrophils/100 WBC (Bld) 80 % High 36 - 65 % [facility] Segs Absolute 9.05 High [facility] WBC (Bld) [#/Vol] 11.4 10*3/uL High [facility] CBC with Diffon 05-11-2022 Abs. Basophil 0.04 k/uL Normal 0.00-0.20 [facility] Comment on above: Performed By: #### YULIYA COUGHLIN, CDP #### [facility] [address] [place] [address] Dr. [place], [place] [phone] Control Cabinet Assembler: David Montez MD Abs. Eosinophil <0.03 Normal 0.00-0.44 [facility] Comment on above: Performed By: #### YULIYA COUGHLIN, CDP #### [address] [place] [address] Control Cabinet Assembler: David Montez MD Abs.Imm.Granulocyte 0.05 k/uL Normal 0.00-0.30 [facility] Comment on above: Performed By: #### YULIYA COUGHLIN, CDP #### [address] [place] [address] Control Cabinet Assembler: David Montez MD Abs.Neutrophil (Seg) 9.05 k/uL High 1.50-8.10 [facility] Comment on above: Performed By: #### YULIYA COUGHLIN, CDP #### [facility] [address] [place] [address] Dr. [place], [place] [phone] Control Cabinet Assembler: David Montez MD Basophils/100 WBC (Bld) 0 % Normal 0-2 [facility] Comment on above: Performed By: #### YULIYA COUGHLIN, CDP #### [facility] [address] [place] [address] [place] [address] Control Cabinet Assembler: David Montez MD Eosinophils/100 WBC (Bld) 0 % Low 1-4 [facility] Comment on above: Performed By: #### R YULIYA KENNEY, CDP #### [facility] [address] [place], [place] [phone] Control Cabinet Assembler: David Montez MD Erythrocyte distribution width (RBC) [Ratio] 13.0 % Normal 11.8-14.4 [facility] Comment on above: Performed By: #### YULIYA COUGHLIN, CDP #### [address] [place], [facility]83 Control Cabinet Assembler: David Montez MD Hematocrit (Bld) [Volume fraction] 34.8 % Low 40.7-50.3 [facility] Comment on above: Performed By: #### YULIYA COUGHLIN, CDP #### [address] [place], [facility]83 Control Cabinet Assembler: David Montez MD Hemoglobin (Bld) [Mass/Vol] 11.4 g/dL Low 13.0-17.0 [facility] Comment on above: Performed By: #### YULIYA COUGHLIN, CDP #### [address] [place] [phone] Control Cabinet Assembler: David Montez MD Immature granulocytes/100 WBC (Bld) 0 % Normal 0 [facility] Comment on above: Performed By: #### YULIYA COUGHLIN, CDP #### [address] [place], [facility]83 Control Cabinet Assembler: David Montez MD Lymphocytes (Bld) [#/Vol] 1.27 10*3/uL Normal 1.10-3.70 [facility] Comment on above: Performed By: #### R YULIYA KENNEY, CDP #### [address] [place] [address] Control Cabinet Assembler: David Montez MD Lymphocytes/100 WBC (Bld) 11 % Low 24-43 [facility] Comment on above: Performed By: #### R YULIYA KENNEY, CDP #### [address] [place], [facility]83 Control Cabinet Assembler: David Montez MD MCH (RBC) [Entitic mass] 34.0 pg High 25.2-33.5 [facility] Comment on above: Performed By: #### YLUIYA COUGHLIN, CDP #### [address] [place], [facility]83 Control Cabinet Assembler: David Montez MD MCHC (RBC) [Mass/Vol] 32.8 g/dL Normal 28.4-34.8 [facility] Comment on above: Performed By: #### YULIYA COUGHLIN, CDP #### [address] [place] [phone] Control Cabinet Assembler: David Montez MD MCV (RBC) [Entitic vol] 103.9 fL High 82.6-102.9 [facility] Comment on above: Performed By: #### YULIYA COUGHLIN, CDP #### [address] [place], [facility]83 Control Cabinet Assembler: David Montez MD Monocytes (Bld) [#/Vol] 0.98 10*3/uL Normal 0.10-1.20 [facility] Comment on above: Performed By: #### YULIYA COUGHLIN, CDP #### [address] [place], [facility]83 Control Cabinet Assembler: David Montez MD Monocytes/100 WBC (Bld) 9 % Normal 3-12 [facility] Comment on above: Performed By: #### YULIYA COUGHLIN, CDP #### [address] [place], [facility]83 Control Cabinet Assembler: David Montez MD Neutrophil (Seg) 80 % High 36-65 [facility] Comment on above: Performed By: #### R YULIYA KENNEY, CDP #### [place] [address] [place] [address] Control Cabinet Assembler: David Montez MD NRBC Automated 0.0 per 100 WBC Normal 0.0 [facility] Comment on above: Performed By: #### YULIYA COUGHLIN, CDP #### [address] [place], [place] [id number] Control Cabinet Assembler: David Montez MD Platelet mean volume (Bld) [Entitic vol] 10.2 fL Normal 8.1-13.5 [facility] Comment on above: Performed By: #### YULIYA COUGHLIN, CDP #### [address] [place], [place] [id number] Control Cabinet Assembler: David Montez MD Platelets (Bld) [#/Vol] 147 10*3/uL Normal 138-453 [facility] Comment on above: Performed By: #### YULIYA COUGHLIN, CDP #### [address] [place] [address] Control Cabinet Assembler: David Montez MD RBC (Bld) [#/Vol] 3.35 10*6/uL Low 4.21-5.77 [facility] Comment on above: Performed By: #### YULIYA COUGHLIN, CDP #### [address] [place], [place] [phone] Control Cabinet Assembler: David Montez MD WBC (Bld) [#/Vol] 11.4 10*3/uL High 3.5-11.3 [facility] Comment on above: Performed By: #### YULIYA COUGHLIN, CDP #### [address] [place] [address] Control Cabinet Assembler: David Montez MD Comp Metabolic Pr/rfx MGon 0 - Albumin [Mass/Vol] 3.3 g/dL Low 3.5-5.2 [facility] Comment on above: Performed By: #### R EJEC, IPF, CDP #### [facility] [address] [place], [place] [phone] Control Cabinet Assembler: David Montez MD Albumin/Glob Ratio 0.9 Low 1.0-2.5 [facility] Comment on above: Performed By: #### R EJEC, IPF, CDP #### [facility] [address] [place], [place] [id number] Control Cabinet Assembler: David Montez MD Alkaline Phos 108 U/L Normal 40-129 [facility] Comment on above: Performed By: #### R ANNE MARIE, IPF, CDP #### [facility] [address] [place], [place] [id number] Control Cabinet Assembler: David Montez MD ALT [Catalytic activity/Vol] 12 U/L Normal 5-41 [facility] Comment on above: Performed By: #### R ANNE MARIE, IPF, CDP #### [facility] [address] [place] [address] [place] [place], [place] [phone] Control Cabinet Assembler: David Montez MD Anion gap [Moles/Vol] 14 mmol/L Normal 9-17 [facility] Comment on above: Performed By: #### R EJRELL, IPF, CDP #### [address] [place], [place] [phone] Control Cabinet Assembler: David Montez MD AST [Catalytic activity/Vol] 17 U/L Normal <40 [facility] Comment on above: Performed By: #### R ANNE MARIE, IPF, CDP #### [facility] [address] [place], [place] [phone] Control Cabinet Assembler: David Montez MD Bilirubin [Mass/Vol] 0.9 mg/dL Normal 0.3-1.2 [facility] Comment on above: Performed By: #### R EJRELL, IPF, CDP #### [facility] [address] [place] [address] [place] [place], [place] [phone] Control Cabinet Assembler: David Montez MD BUN/CRE Ratio 25 High 9-20 [facility] Comment on above: Performed By: #### YULIYA COUGHLIN, CDP #### [facility] [address] [place] [address] Control Cabinet Assembler: David Montez MD Calcium [Mass/Vol] 9.0 mg/dL Normal 8.6-10.4 [facility] Comment on above: Performed By: #### YULIYA COUGHLIN, CDP #### [facility] [address] [place] [address] Control Cabinet Assembler: David Montez MD Chloride [Moles/Vol] 109 mmol/L High 98-107 [facility] Comment on above: Performed By: #### YULIYA COUGHLIN, CDP #### [facility] [address] [place] [address] Control Cabinet Assembler: David Montez MD CO2 [Moles/Vol] 23 mmol/L Normal 20-31 [facility] Comment on above: Performed By: #### YULIYA COUGHLIN, CDP #### [facility] [address] [place] [address] Control Cabinet Assembler: David Montez MD Creatinine [Mass/Vol] 1.00 mg/dL Normal 0.70-1.20 [facility] Comment on above: Performed By: #### YULIYA COUGHLIN, CDP #### [facility] [address] [place] [address] Control Cabinet Assembler: David Montez MD GFR/1.73 sq M.predicted among non-blacks MDRD (S/P/Bld) [Vol rate/Area] mL/min/{1.73_m2} Normal >60 [facility] Comment on above: Result Comment: These results are not intended for use in patients <18 years of age. eGFR results are calculated without a race factor using the 2020 CKD-EPI equation. Careful clinical correlation is recommended, particularly when comparing to results calculated using previous equations. The CKD-EPI equation is less accurate in patients with extremes of muscle mass, extra-renal metabolism of creatine, excessive creatine ingestion, or following therapy that affects renal tubular secretion. Performed By: #### YULIYA COUGHLIN, CDP #### [facility] [address] [place], [place] [phone] Control Cabinet Assembler: David Montez MD Glucose [Mass/Vol] 82 mg/dL Normal 70-99 [facility] Comment on above: Performed By: #### YULIYA COUGHLIN, CDP #### [facility] [address] [place] [address] [place] [address] Control Cabinet Assembler: David Montez MD Potassium [Moles/Vol] 3.9 mmol/L Normal 3.7-5.3 [facility] Comment on above: Performed By: #### YULIYA COUGHLIN, CDP #### [facility] [address] [place] [address] [place] [place], [place] [phone] Control Cabinet Assembler: David Montez MD Protein [Mass/Vol] 6.9 g/dL Normal 6.4-8.3 [facility] Comment on above: Performed By: #### YULIYA COUGHLIN, CDP #### [address] [place], [place] [phone] Control Cabinet Assembler: David Montez MD Sodium [Moles/Vol] 146 mmol/L High 135-144 [facility] Comment on above: Performed By: #### YULIYA COUGHLIN, CDP #### [facility] [address] [place] [address] [place] [address] Control Cabinet Assembler: David Montez MD Urea nitrogen [Mass/Vol] 25 mg/dL High 8-23 [facility] Comment on above: Performed By: #### YULIYA COUGHLIN, CDP #### [facility] [address] [place] [address] [place] [place], [place] [phone] Control Cabinet Assembler: David Montez MD Comprehensive Metabolic Pane l w/ Reflex to MGon 05-11-2022 Albumin [Mass/Vol] 3.3 g/dL Low 3.5 - 5.2 g/dL [facility] Albumin/Globulin [Mass ratio] 0.9 {ratio} Low 1.0 - 2.5 [facility] ALP [Catalytic activity/Vol] 108 U/L 40 - 129 U/L [facility] ALT [Catalytic activity/Vol] 12 U/L 5 - 41 U/L [facility] Anion gap [Moles/Vol] 14 mmol/L 9 - 17 mmol/L [facility] AST [Catalytic activity/Vol] 17 U/L NINF - 40 U/L [facility] Bilirubin [Mass/Vol] 0.9 mg/dL 0.3 - 1 .2 mg/dL [facility] Calcium [Mass/Vol] 9.0 mg/dL 8.6 - 10. 4 mg/dL [facility] Chloride [Moles/Vol] 109 mmol/L High 98 - 10 7 mmol/L [facility] CO2 [Moles/Vol] 23 mmol/L 20 - 31 mmol/L [facility] Creatinine [Mass/Vol] 1 mg/dL 0.70 - 1.20 mg/dL [facility] GFR/1.73 sq M.predicted MDRD (S/P/Bld) [Vol rate/Area] - PINF [facility] Comment on above: These results are not intended for use in patients <18 years of age. eGFR results are calculated without a race factor using the 2020 CKD-EPI equation. Careful clinical correlation is recommended, particularly when comparing to results calculated using previous equations. The CKD-EPI equation is less accurate in patients with extremes of muscle mass, extra-renal metabolism of creatine, excessive creatine ingestion, or following therapy that affects renal tubular secretion. Glucose [Mass/Vol] 82 mg/dL 70 - 99 mg/dL [facility] Interpretation and review of laboratory results Abnormal [facility] Potassium [Moles/Vol] 3.9 mmol/L 3.7 - 5.3 mmol/L [facility] Protein [Mass/Vol] 6.9 g/dL 6.4 - 8.3 g/dL [facility] Sodium [Moles/Vol] 146 mmol/L High 135 - 144 mmol/L [facility] Urea nitrogen [Mass/Vol] 25 mg/dL High 8 - 23 mg/dL [facility] Urea nitrogen/Creatinine (Bld) [Mass ratio] 25 High 9 - 20 [facility] [place] SMALL BOWEL FOLLOW FREDDYUG Guido HOLLIDAYon 05-11-2022 [place] SMALL BOWEL FOLLOW THROUGH ONLY EXAMINATION: SMALL BOWEL FOLLOW THROUGH SERIES 05/11/2022 TECHNIQUE: Small bowel follow through series was performed with overhead images. COMPARISON: None HISTORY: ORDERING SYSTEM PROVIDED HISTORY: with Gastrographin for bowel obstruction TECHNOLOGIST PROVIDED HISTORY: with Gastrographin for bowel obstruction FINDINGS: There are several mildly distended loops of small bowel, most prominent in the left abdomen. Tip and side port of the enteric tube are below the GE junction with tip in the gastric fundus. There are multilevel degenerative changes in the lumbar spine. There is normal transit time to the terminal ileum, 2 hours. No focal abnormalities, strictures or obstructions are seen of the small bowel. Spot images of the terminal ileum are unremarkable. IMPRESSION: Mildly distended loops of small bowel in the left abdomen with normal small bowel transit time. Interpreted by: Abbey Joaquin MD Signed by: Abbey Joaquin MD 05/11/22 Final result [facility] Mildly distended loops of small bowel in the left abdomen with normal small bowel transit time. [facility] RIS CONSOLIDATED EXAMINATION: SMALL BOWEL FOLLOW THROUGH SERIES 05/11/2022 TECHNIQUE: Small bowel follow through series was performed with overhead images. COMPARISON: None HISTORY: ORDERING SYSTEM PROVIDED HISTORY: with Gastrographin for bowel obstruction TECHNOLOGIST PROVIDED HISTORY: with Gastrographin for bowel obstruction FINDINGS: There are several mildly distended loops of small bowel, most prominent in the left abdomen. Tip and side port of the enteric tube are below the GE junction with tip in the gastric fundus. There are multilevel degenerative changes in the lumbar spine. There is normal transit time to the terminal ileum, 2 hours. No focal abnormalities, strictures or obstructions are seen of the small bowel. Spot images of the terminal ileum are unremarkable. [facility] CONSOLID[facility] Abbey Joaquin MD - 05/11/2022 EXAMINATION: SMALL BOWEL FOLLOW THROUGH SERIES 05/11/2022 TECHNIQUE: Small bowel follow through series was performed with overhead images. COMPARISON: None HISTORY: ORDERING SYSTEM PROVIDED HISTORY: with Gastrographin for bowel obstruction TECHNOLOGIST PROVIDED HISTORY: with Gastrographin for bowel obstruction FINDINGS: There are several mildly distended loops of small bowel, most prominent in the left abdomen. Tip and side port of the enteric tube are below the GE junction with tip in the gastric fundus. There are multilevel degenerative changes in the lumbar spine. There is normal transit time to the terminal ileum, 2 hours. No focal abnormalities, strictures or obstructions are seen of the small bowel. Spot images of the terminal ileum are unremarkable. IMPRESSION: Mildly distended loops of small bowel in the left abdomen with normal small bowel transit time. [facility] [employer] Work Phone: Radiology Study observation (narrative) [facility] Work Phone: [place] SMALL BOWEL FOLLOW THROUG H ONLYOrdered By: Abbey Joaquin on 05-11-2022 [facility] [employer] Work Phone: CBC auto differentialon 03-0 Absolute Eos # [facility] Cell [employer] Absolute Immature Granulocyte 0.06 [facility] [employer] Absolute Lymph # 1.45 [facility] [employer] Absolute [place] # 0.87 [facility] [employer] Basophils (Bld) [#/Vol] 0.06 10*3/uL [facility] [employer] Basophils/100 WBC (Bld) 0 % 0 - 2 % [facility] [employer] Eosinophils/100 WBC (Bld) 0 % Low 1 - 4 % [facility] Hematocrit (Bld) [Volume fraction] 35.9 % Low 40.7 - 50.3 % [facility] Hemoglobin (Bld) [Mass/Vol] 12.0 g/dL Low 13.0 - 17.0 g/dL [facility] Immature granulocytes/100 WBC (Bld) 0 % 0 [facility] Interpretation and review of laboratory results Abnormal [facility] [employer] Lymphocytes/100 WBC (Bld) 11 % Low 24 - 43 % [facility] [employer] MCH (RBC) [Entitic mass] 33.8 pg High 25.2 - 33.5 pg [facility] MCHC (RBC) [Mass/Vol] 33.4 g/dL 28.4 - 34.8 g/dL [facility] MCV (RBC) [Entitic vol] 101.1 fL 82.6 - 102.9 fL [facility] Monocytes/100 WBC (Bld) 7 % 3 - 12 % [facility] NRBC Automated 0.0 0.0 per 100 WBC [facility] Platelet distribution width (Bld) [Ratio] 13.1 % 11.8 - 14.4 % [facility] Platelet mean volume (Bld) [Entitic vol] 9.2 fL 8.1 - 13.5 fL [facility] Platelets (Bld) [#/Vol] 170 10*3/uL [facility] RBC (Bld) [#/Vol] 3.55 10*6/uL Low 4.21 - 5.7 7 m/uL [facility] Segmented neutrophils/100 WBC (Bld) 82 % High 36 - 65 % [facility] Segs Absolute 10.97 High [facility] WBC (Bld) [#/Vol] 13.4 10*3/uL High [facility] CBC with Diffon 05-10-2022 Abs. Basophil 0.06 k/uL Normal 0.00-0.20 [facility] Comment on above: Performed By: #### C DP, CMPX #### [facility] [address] [place] [address] [place] [address] Control Cabinet Assembler: David Montez MD Abs. Eosinophil <0.03 Normal 0.00-0.44 [facility] Comment on above: Performed By: #### C DP, CMPX #### [address] [place] [address] Control Cabinet Assembler: David Montez MD Abs.Imm.Granulocyte 0.06 k/uL Normal 0.00-0.30 [facility] Comment on above: Performed By: #### C DP, CMPX #### [facility] [address] [place] [address] Dr. [place], [place] [phone] Control Cabinet Assembler: David Montez MD Abs.Neutrophil (Seg) 10.97 k/uL High 1.50-8.10 [facility] Comment on above: Performed By: #### C DP, CMPX #### [address] [place], [place] [phone] Control Cabinet Assembler: David Montez MD Basophils/100 WBC (Bld) 0 % Normal 0-2 [facility] Comment on above: Performed By: #### C DP, CMPX #### [address] [place], [place] [phone] Control Cabinet Assembler: David Montez MD Eosinophils/100 WBC (Bld) 0 % Low 1-4 [facility] Comment on above: Performed By: #### C DP, CMPX #### [address] [place], [place] [phone] Control Cabinet Assembler: David Montez MD Erythrocyte distribution width (RBC) [Ratio] 13.1 % Normal 11.8-14.4 [facility] Comment on above: Performed By: #### C DP, CMPX #### [address] [place], [place] [phone] Control Cabinet Assembler: David Montez MD Hematocrit (Bld) [Volume fraction] 35.9 % Low 40.7-50.3 [facility] Comment on above: Performed By: #### C DP, CMPX #### [address] [place], [place] [phone] Control Cabinet Assembler: David Montez MD Hemoglobin (Bld) [Mass/Vol] 12.0 g/dL Low 13.0-17.0 [facility] Comment on above: Performed By: #### C DP, CMPX #### [address] [place], [place] [phone] Control Cabinet Assembler: David Montez MD Immature granulocytes/100 WBC (Bld) 0 % Normal 0 [facility] Comment on above: Performed By: #### C DP, CMPX #### [address] [place] [address] Control Cabinet Assembler: David Montez MD Lymphocytes (Bld) [#/Vol] 1.45 10*3/uL Normal 1.10-3.70 [facility] Comment on above: Performed By: #### C DP, CMPX #### [address] [place], [place] [phone] Control Cabinet Assembler: David Montez MD Lymphocytes/100 WBC (Bld) 11 % Low 24-43 [facility] Comment on above: Performed By: #### C DP, CMPX #### [address] [place] [address] Control Cabinet Assembler: David Montez MD MCH (RBC) [Entitic mass] 33.8 pg High 25.2-33.5 [facility] Comment on above: Performed By: #### C DP, CMPX #### [address] [place], [place] [phone] Control Cabinet Assembler: David Montez MD MCHC (RBC) [Mass/Vol] 33.4 g/dL Normal 28.4-34.8 [facility] Comment on above: Performed By: #### C DP, CMPX #### [address] [place], [place] 4469383 Control Cabinet Assembler: David Montez MD MCV (RBC) [Entitic vol] 101.1 fL Normal 82.6-102.9 [facility] Comment on above: Performed By: #### C DP, CMPX #### [address] [place] [address] Control Cabinet Assembler: David Montez MD Monocytes (Bld) [#/Vol] 0.87 10*3/uL Normal 0.10-1.20 [facility] Comment on above: Performed By: #### C DP, CMPX #### [facility] [address] [place], [facility]83 Control Cabinet Assembler: David Montez MD Monocytes/100 WBC (Bld) 7 % Normal 3-12 [facility] Comment on above: Performed By: #### C DP, CMPX #### [facility] [address] [place], [facility]83 Control Cabinet Assembler: David Montez MD Neutrophil (Seg) 82 % High 36-65 [facility] Comment on above: Performed By: #### C DP, CMPX #### [facility] [address] [place], [facility]83 Control Cabinet Assembler: David Montez MD NRBC Automated 0.0 per 100 WBC Normal 0.0 [facility] Comment on above: Performed By: #### C DP, CMPX #### [facility] [address] [place], [facility]83 Control Cabinet Assembler: David Montez MD Platelet mean volume (Bld) [Entitic vol] 9.2 fL Normal 8.1-13.5 [facility] Comment on above: Performed By: #### C DP, CMPX #### [address] [place], [place] [address] Control Cabinet Assembler: David Montez MD Platelets (Bld) [#/Vol] 170 10*3/uL Normal 138-453 [facility] Comment on above: Performed By: #### C DP, CMPX #### [facility] [address] [place], [facility]83 Control Cabinet Assembler: David Montez MD RBC (Bld) [#/Vol] 3.55 10*6/uL Low 4.21-5.77 [facility] Comment on above: Performed By: #### C DP, CMPX #### [facility] [address] [place], [place] [phone] Control Cabinet Assembler: David Montez MD WBC (Bld) [#/Vol] 13.4 10*3/uL High 3.5-11.3 [facility] Comment on above: Performed By: #### C DP, CMPX #### [facility] [address] [place], [place] [phone] Control Cabinet Assembler: David Montez MD Comp Metabolic Pr/rfx MGon 0 - Albumin [Mass/Vol] 3.5 g/dL Normal 3.5-5.2 [facility] Comment on above: Performed By: #### C DP, CMPX #### [facility] [address] [place], [place] 2003683 Control Cabinet Assembler: David Montez MD Albumin/Glob Ratio 1.1 Normal 1.0-2.5 [facility] Comment on above: Performed By: #### C DP, CMPX #### [facility] [address] [place] [address] Control Cabinet Assembler: David Montez MD Alkaline Phos 118 U/L Normal 40-129 [facility] Comment on above: Performed By: #### C DP, CMPX #### [facility] [address] [place] [address] Control Cabinet Assembler: David Montez MD ALT [Catalytic activity/Vol] 10 U/L Normal 5-41 [facility] Comment on above: Performed By: #### C DP, CMPX #### [facility] [address] [place], [place] [phone] Control Cabinet Assembler: David Montez MD Anion gap [Moles/Vol] 10 mmol/L Normal 9-17 [facility] Comment on above: Performed By: #### C DP, CMPX #### [facility] [address] [place], [place] [phone] Control Cabinet Assembler: David Montez MD AST [Catalytic activity/Vol] 13 U/L Normal <40 [facility] Comment on above: Performed By: #### C DP, CMPX #### [facility] [address] [place], [place] [phone] Control Cabinet Assembler: David Montez MD Bilirubin [Mass/Vol] 0.6 mg/dL Normal 0.3-1.2 [facility] Comment on above: Performed By: #### C DP, CMPX #### [facility] [address] [place], [place] 2404983 Control Cabinet Assembler: David Montez MD BUN/CRE Ratio 28 High 9-20 [facility] Comment on above: Performed By: #### C DP, CMPX #### [facility] [address] [place] [address] Control Cabinet Assembler: David Montez MD Calcium [Mass/Vol] 9.0 mg/dL Normal 8.6-10.4 [facility] Comment on above: Performed By: #### C DP, CMPX #### [facility] [address] [place] [address] Control Cabinet Assembler: David Montez MD Chloride [Moles/Vol] 107 mmol/L Normal 98-107 [facility] Comment on above: Performed By: #### C DP, CMPX #### [facility] [address] [place], [place] [phone] Control Cabinet Assembler: David Montez MD CO2 [Moles/Vol] 28 mmol/L Normal 20-31 [facility] Comment on above: Performed By: #### C DP, CMPX #### [facility] [address] [place] [address] Control Cabinet Assembler: David Montez MD Creatinine [Mass/Vol] 1.02 mg/dL Normal 0.70-1.20 [facility] Comment on above: Performed By: #### C DP, CMPX #### [facility] [address] [place] [address] Control Cabinet Assembler: David Montez MD GFR/1.73 sq M.predicted among non-blacks MDRD (S/P/Bld) [Vol rate/Area] mL/min/{1.73_m2} Normal >60 [facility] Comment on above: Result Comment: These results are not intended for use in patients <18 years of age. eGFR results are calculated without a race factor using the 2020 CKD-EPI equation. Careful clinical correlation is recommended, particularly when comparing to results calculated using previous equations. The CKD-EPI equation is less accurate in patients with extremes of muscle mass, extra-renal metabolism of creatine, excessive creatine ingestion, or following therapy that affects renal tubular secretion. Performed By: #### C DP, CMPX #### [address] [place] [address] Control Cabinet Assembler: David Montez MD Glucose [Mass/Vol] 108 mg/dL High 70-99 [facility] Comment on above: Performed By: #### C DP, CMPX #### [address] [place] [address] Control Cabinet Assembler: David Montez MD Potassium [Moles/Vol] 3.8 mmol/L Normal 3.7-5.3 [facility] Comment on above: Performed By: #### C DP, CMPX #### [facility] [address] [place] [address] [place] [address] Control Cabinet Assembler: David Montez MD Protein [Mass/Vol] 6.8 g/dL Normal 6.4-8.3 [facility] Comment on above: Performed By: #### C DP, CMPX #### [address] [place] [address] Control Cabinet Assembler: David Montze MD Sodium [Moles/Vol] 145 mmol/L High 135-144 [facility] Comment on above: Performed By: #### C DP, CMPX #### [facility] [address] [place] [address] Control Cabinet Assembler: David Montez MD Urea nitrogen [Mass/Vol] 29 mg/dL High 8- [facility] Comment on above: Performed By: #### C DP, CMPX #### [facility] [address] [place] [address] Control Cabinet Assembler: David Montez MD Comprehensive Metabolic Pane l w/ Reflex to on 05-10-2022 Albumin [Mass/Vol] 3.5 g/dL 3.5 - 5.2 g/dL [facility] Albumin/Globulin [Mass ratio] 1.1 {ratio} 1.0 - 2.5 [facility] ALP [Catalytic activity/Vol] 118 U/L 40 - 129 U/L [facility] ALT [Catalytic activity/Vol] 10 U/L 5 - 41 U/L [facility] Anion gap [Moles/Vol] 10 mmol/L 9 - 17 mmol/L [facility] AST [Catalytic activity/Vol] 13 U/L NINF - 40 U/L [facility] Bilirubin [Mass/Vol] 0.6 mg/dL 0.3 - 1 .2 mg/dL [facility] Calcium [Mass/Vol] 9.0 mg/dL 8.6 - 10. 4 mg/dL [facility] Chloride [Moles/Vol] 107 mmol/L 98 - 10 7 mmol/L [facility] CO2 [Moles/Vol] 28 mmol/L 20 - 31 mmol/L [facility] Creatinine [Mass/Vol] 1.02 mg/dL 0.70 - 1.20 mg/dL [facility] GFR/1.73 sq M.predicted MDRD (S/P/Bld) [Vol rate/Area] - PINF [facility] Comment on above: These results are not intended for use in patients <18 years of age. eGFR results are calculated without a race factor using the 2020 CKD-EPI equation. Careful clinical correlation is recommended, particularly when comparing to results calculated using previous equations. The CKD-EPI equation is less accurate in patients with extremes of muscle mass, extra-renal metabolism of creatine, excessive creatine ingestion, or following therapy that affects renal tubular secretion. Glucose [Mass/Vol] 108 mg/dL High 70 - 99 mg/dL [facility] Interpretation and review of laboratory results Abnormal [facility] Potassium [Moles/Vol] 3.8 mmol/L 3.7 - 5.3 mmol/L [facility] Protein [Mass/Vol] 6.8 g/dL 6.4 - 8.3 g/dL [facility] Sodium [Moles/Vol] 145 mmol/L High 135 - 144 mmol/L [facility] Urea nitrogen [Mass/Vol] 29 mg/dL High 8 - 23 mg/dL [facility] Urea nitrogen/Creatinine (Bld) [Mass ratio] 28 High 9 - 20 [facility] Glucose, Whole Bloodon 05-10 Glucose [Mass/Vol] 88 mg/dL 74 - 100 mg/dL [facility] XR ACUTE ABD SERIES CHEST 1 VWon 05-10-2022 XR ACUTE ABD SERIES CHEST 1 VW EXAMINATION: TWO XRAY VIEWS OF THE ABDOMEN AND SINGLE XRAY VIEW OF THE CHEST 05/10/2022 8:19 am COMPARISON: Abdominal radiographs performed 05/09/2022. HISTORY: ORDERING SYSTEM PROVIDED HISTORY: SBO TECHNOLOGIST PROVIDED HISTORY: SBO FINDINGS: There is no acute consolidation or effusion. There is no pneumothorax. Mediastinal structures are unremarkable. The extrathoracic soft tissues are unremarkable. There is a nonspecific bowel gas pattern without evidence for obstruction. There is a gastric tube with the tip in the gastric fundus. There is no acute osseous abnormality. The surrounding soft tissues are unremarkable. IMPRESSION: No acute cardiopulmonary process. Nonspecific bowel gas pattern without evidence for obstruction. Gastric tube with the tip in the gastric fundus. Interpreted by: Toby Lofton MD Signed by: Toby Lofton MD 05/10/22 Final result Normal [facility] No acute cardiopulmonary process. Nonspecific bowel gas pattern without evidence for obstruction. Gastric tube with the tip in the gastric fundus. [facility] RIS CONSOLIDATED EXAMINATION: TWO XRAY VIEWS OF THE ABDOMEN AND SINGLE XRAY VIEW OF THE CHEST 05/10/2022 8:19 am COMPARISON: Abdominal radiographs performed 05/09/2022. HISTORY: ORDERING SYSTEM PROVIDED HISTORY: SBO TECHNOLOGIST PROVIDED HISTORY: SBO FINDINGS: There is no acute consolidation or effusion. There is no pneumothorax. Mediastinal structures are unremarkable. The extrathoracic soft tissues are unremarkable. There is a nonspecific bowel gas pattern without evidence for obstruction. There is a gastric tube with the tip in the gastric fundus. There is no acute osseous abnormality. The surrounding soft tissues are unremarkable. [facility] RIS CONSOLIDATED Toby Lofton MD - 05/10/2022 EXAMINATION: TWO XRAY VIEWS OF THE ABDOMEN AND SINGLE XRAY VIEW OF THE CHEST 05/10/2022 8:19 am COMPARISON: Abdominal radiographs performed 05/09/2022. HISTORY: ORDERING SYSTEM PROVIDED HISTORY: SBO TECHNOLOGIST PROVIDED HISTORY: SBO FINDINGS: There is no acute consolidation or effusion. There is no pneumothorax. Mediastinal structures are unremarkable. The extrathoracic soft tissues are unremarkable. There is a nonspecific bowel gas pattern without evidence for obstruction. There is a gastric tube with the tip in the gastric fundus. There is no acute osseous abnormality. The surrounding soft tissues are unremarkable. IMPRESSION: No acute cardiopulmonary process. Nonspecific bowel gas pattern without evidence for obstruction. Gastric tube with the tip in the gastric fundus. [employer] Work Phone: [employer] Work Phone: Radiology Study observation (narrative) [place] [employer] [facility] Work Phone: BMPon 05-09-2022 Anion gap [Moles/Vol] 16 mmol/L 9 - 17 mmol/L [facility] Calcium [Mass/Vol] 10.4 mg/dL 8.6 - 10. 4 mg/dL [facility] Chloride [Moles/Vol] 99 mmol/L 98 - 10 7 mmol/L [facility] CO2 [Moles/Vol] 24 mmol/L 20 - 31 mmol/L [facility] Creatinine [Mass/Vol] 1.71 mg/dL High 0.70 - 1.20 mg/dL [facility] GFR/1.73 sq M.predicted MDRD (S/P/Bld) [Vol rate/Area] 44 mL/min/{1.73_m2} Low - PINF [facility] Comment on above: These results are not intended for use in patients <18 years of age. eGFR results are calculated without a race factor using the 2020 CKD-EPI equation. Careful clinical correlation is recommended, particularly when comparing to results calculated using previous equations. The CKD-EPI equation is less accurate in patients with extremes of muscle mass, extra-renal metabolism of creatine, excessive creatine ingestion, or following therapy that affects renal tubular secretion. Glucose [Mass/Vol] 125 mg/dL High 70 - 99 mg/dL [facility] Potassium [Moles/Vol] 4.0 mmol/L 3.7 - 5.3 mmol/L [facility] Sodium [Moles/Vol] 139 mmol/L 135 - 144 mmol/L [facility] Urea nitrogen [Mass/Vol] 34 mg/dL High 8 - 23 mg/dL [facility] Urea nitrogen/Creatinine (Bld) [Mass ratio] 20 9 - 20 [facility] Basic Metabolic Profon 05-09 Anion gap [Moles/Vol] 16 mmol/L Normal 9-17 [facility] Comment on above: Performed By: #### C DP CMPX #### [facility] [address] [place] [address] [place] [address] Control Cabinet Assembler: David Montez MD BUN/CRE Ratio 20 Normal 9-20 [facility] Comment on above: Performed By: #### C DP, CMPX #### [facility] [address] [place] [address] [place] [address] Control Cabinet Assembler: David Montez MD Calcium [Mass/Vol] 10.4 mg/dL Normal 8.6-10.4 [facility] Comment on above: Performed By: #### C DP, CMPX #### [facility] [address] [place] [address] [place] [address] Control Cabinet Assembler: David Montez MD Chloride [Moles/Vol] 99 mmol/L Normal 98-107 [facility] Comment on above: Performed By: #### C DP, CMPX #### [facility] [address] [place] [address] Control Cabinet Assembler: David Montez MD CO2 [Moles/Vol] 24 mmol/L Normal 20-31 [facility] Comment on above: Performed By: #### C DP, CMPX #### [facility] [address] [place] [address] Control Cabinet Assembler: David Montez MD Creatinine [Mass/Vol] 1.71 mg/dL High 0.70-1.20 [facility] [place] Comment on above: Performed By: #### C DP, CMPX #### [facility] [address] [place] [address] Control Cabinet Assembler: David Montez MD GFR/1.73 sq M.predicted among non-blacks MDRD (S/P/Bld) [Vol rate/Area] 44 mL/min/{1.73_m2} Low >60 [facility] Comment on above: Result Comment: These results are not intended for use in patients <18 years of age. eGFR results are calculated without a race factor using the 2020 CKD-EPI equation. Careful clinical correlation is recommended, particularly when comparing to results calculated using previous equations. The CKD-EPI equation is less accurate in patients with extremes of muscle mass, extra-renal metabolism of creatine, excessive creatine ingestion, or following therapy that affects renal tubular secretion. Performed By: #### C DP, CMPX #### [facility] [address] [place] [address] Control Cabinet Assembler: David Montez MD Glucose [Mass/Vol] 125 mg/dL High 70-99 [facility] Comment on above: Performed By: #### C DP, CMPX #### [facility] [address] [place] [address] Control Cabinet Assembler: David Montez MD Potassium [Moles/Vol] 4.0 mmol/L Normal 3.7-5.3 [facility] Comment on above: Performed By: #### C DP, CMPX #### [facility] [address] [place] [address] Control Cabinet Assembler: David Montez MD Sodium [Moles/Vol] 139 mmol/L Normal 135-144 [facility] Comment on above: Performed By: #### C DP, CMPX #### [facility] [address] [place] [address] Control Cabinet Assembler: David Montez MD Urea nitrogen [Mass/Vol] 34 mg/dL High 8-23 [facility] Comment on above: Performed By: #### C DP, CMPX #### [facility] [address] [place] [address] Control Cabinet Assembler: David Montez MD CBC auto differentialon 03-0 Absolute Eos # [facility] Absolute Immature Granulocyte 0.05 [facility] Absolute Lymph # 1.88 [facility] Absolute [place] # 1.00 [facility] Basophils (Bld) [#/Vol] 0.03 10*3/uL [facility] Basophils/100 WBC (Bld) 0 % 0 - 2 % [facility] Eosinophils/100 WBC (Bld) 0 % Low 1 - 4 % [facility] Hematocrit (Bld) [Volume fraction] 43.7 % 40.7 - 50.3 % [facility] Hemoglobin (Bld) [Mass/Vol] 14.8 g/dL 13.0 - 17.0 g/dL [facility] Immature granulocytes/100 WBC (Bld) 0 % 0 [facility] Interpretation and review of laboratory results Abnormal [facility] Lymphocytes/100 WBC (Bld) 15 % Low 24 - 43 % [facility] MCH (RBC) [Entitic mass] 33.6 pg High 25.2 - 33.5 pg [facility] MCHC (RBC) [Mass/Vol] 33.9 g/dL 28.4 - 34.8 g/dL [facility] MCV (RBC) [Entitic vol] 99.1 fL 82.6 - 102.9 fL [facility] Monocytes/100 WBC (Bld) 8 % 3 - 12 % [facility] NRBC Automated 0.0 0.0 per 100 WBC [facility] Platelet distribution width (Bld) [Ratio] 12.9 % 11.8 - 14.4 % [facility] Platelet mean volume (Bld) [Entitic vol] 9.3 fL 8.1 - 13.5 fL [facility] Platelets (Bld) [#/Vol] 285 10*3/uL [facility] RBC (Bld) [#/Vol] 4.41 10*6/uL 4.21 - 5.7 7 m/uL [facility] Segmented neutrophils/100 WBC (Bld) 77 % High 36 - 65 % [facility] Segs Absolute 9.73 High [facility] WBC (Bld) [#/Vol] 12.7 10*3/uL High [facility] CBC with Diffon 05-09-2022 Abs. Basophil 0.03 k/uL Normal 0.00-0.20 [facility] Comment on above: Performed By: #### YULIYA COUGHLIN, CDP #### [address] [place] [id number] Control Cabinet Assembler: David Montez MD Abs. Eosinophil <0.03 Normal 0.00-0.44 [facility] Comment on above: Performed By: #### YULIYA COUGHLIN, CDP #### [facility] [address] [place] [address] [place], [place] [id number] Control Cabinet Assembler: David Montez MD Abs.Imm.Granulocyte 0.05 k/uL Normal 0.00-0.30 [facility] Comment on above: Performed By: #### YULIYA COUGHLIN, CDP #### [facility] [address] [place], [place] [id number] Control Cabinet Assembler: David Montez MD Abs.Neutrophil (Seg) 9.73 k/uL High 1.50-8.10 [facility] Comment on above: Performed By: #### YULIYA COUGHLIN, CDP #### [facility] [address] [place], [place] [id number] Control Cabinet Assembler: David Montez MD Basophils/100 WBC (Bld) 0 % Normal 0-2 [facility] Comment on above: Performed By: #### YULIYA COUGHLIN, CDP #### [facility] [address] [place], [facility]83 Control Cabinet Assembler: David Montez MD Eosinophils/100 WBC (Bld) 0 % Low 1-4 [facility] Comment on above: Performed By: #### YULIYA COUGHLIN, CDP #### [address] [place], [facility]83 Control Cabinet Assembler: David Montez MD Erythrocyte distribution width (RBC) [Ratio] 12.9 % Normal 11.8-14.4 [facility] Comment on above: Performed By: #### YULIYA COUGHLIN, CDP #### [address] [place], [facility]83 Control Cabinet Assembler: David Montez MD Hematocrit (Bld) [Volume fraction] 43.7 % Normal 40.7-50.3 [facility] Comment on above: Performed By: #### YULIYA COUGHLIN, CDP #### [address] [place], [facility]83 Control Cabinet Assembler: David Montez MD Hemoglobin (Bld) [Mass/Vol] 14.8 g/dL Normal 13.0-17.0 [facility] Comment on above: Performed By: #### YULIYA COUGHLIN, CDP #### [address] [place], [place] [id number] Control Cabinet Assembler: David Montez MD Immature granulocytes/100 WBC (Bld) 0 % Normal 0 [facility] Comment on above: Performed By: #### YULIYA COUGHLIN, CDP #### [facility] [address] [place], [place] [phone] Control Cabinet Assembler: David Montez MD Lymphocytes (Bld) [#/Vol] 1.88 10*3/uL Normal 1.10-3.70 [facility] Comment on above: Performed By: #### YULIYA COUGHLIN, CDP #### [facility] [address] [place], [place] [id number] Control Cabinet Assembler: David Montez MD Lymphocytes/100 WBC (Bld) 15 % Low 24-43 [facility] Comment on above: Performed By: #### YULIYA COUGHLIN, CDP #### [address] [place], [place] [phone] Control Cabinet Assembler: David Montez MD MCH (RBC) [Entitic mass] 33.6 pg High 25.2-33.5 [facility] Comment on above: Performed By: #### YULIYA COUGHLIN, CDP #### [address] [place], [place] [id number] Control Cabinet Assembler: David Montez MD MCHC (RBC) [Mass/Vol] 33.9 g/dL Normal 28.4-34.8 [facility] Comment on above: Performed By: #### YULIYA COUGHLIN, CDP #### [address] [place], [place] [phone] Control Cabinet Assembler: David Montez MD MCV (RBC) [Entitic vol] 99.1 fL Normal 82.6-102.9 [facility] Comment on above: Performed By: #### YULIYA COUGHLIN, CDP #### [address] [place], [place] [phone] Control Cabinet Assembler: David Montez MD Monocytes (Bld) [#/Vol] 1.00 10*3/uL Normal 0.10-1.20 [facility] Comment on above: Performed By: #### R EJRELL, IPF, CDP #### [facility] [address] [place], [place] [phone] Control Cabinet Assembler: David Montez MD Monocytes/100 WBC (Bld) 8 % Normal 3-12 [facility] Comment on above: Performed By: #### R ANNE MARIE IPF, CDP #### [facility] [address] [place], [facility]83 Control Cabinet Assembler: David Montez MD Neutrophil (Seg) 77 % High 36-65 [facility] Comment on above: Performed By: #### R ANNE MARIE IPF, CDP #### [facility] [address] [place], [place] [phone] Control Cabinet Assembler: David Montez MD NRBC Automated 0.0 per 100 WBC Normal 0.0 [facility] Comment on above: Performed By: #### R ANNE MARIE IPF, CDP #### [facility] [address] [place], [place] [phone] Control Cabinet Assembler: David Montez MD Platelet mean volume (Bld) [Entitic vol] 9.3 fL Normal 8.1-13.5 [facility] Comment on above: Performed By: #### R ANNE MARIE IPF, CDP #### [address] [place], [place] [phone] Control Cabinet Assembler: David Montez MD Platelets (Bld) [#/Vol] 285 10*3/uL Normal 138-453 [facility] Comment on above: Performed By: #### R ANNE MARIE IPF, CDP #### [facility] [address] [place] [address] Control Cabinet Assembler: David Montez MD RBC (Bld) [#/Vol] 4.41 10*6/uL Normal 4.21-5.77 [facility] Comment on above: Performed By: #### R EJEC, IPF, CDP #### [facility] [address] [place] [address] Control Cabinet Assembler: David Montez MD WBC (Bld) [#/Vol] 12.7 10*3/uL High 3.5-11.3 [facility] Comment on above: Performed By: #### R EJEC, IPF, CDP #### [facility] [address] [place], [place] [address] Control Cabinet Assembler: David Montez MD Abs. Basophil 0.05 k/uL Normal 0.00-0.20 [facility] Comment on above: Performed By: #### C DP, CMPX #### [address] [place], [place] [address] Control Cabinet Assembler: David Montez MD Abs. Eosinophil <0.03 Normal 0.00-0.44 [facility] Comment on above: Performed By: #### C DP, CMPX #### [facility] [address] [place], [place] [address] Control Cabinet Assembler: David Montez MD Abs.Imm.Granulocyte 0.06 k/uL Normal 0.00-0.30 [facility] Comment on above: Performed By: #### C DP, CMPX #### [address] [place], [place] [address] Control Cabinet Assembler: David Montez MD Abs.Neutrophil (Seg) 12.89 k/uL High 1.50-8.10 [facility] Comment on above: Performed By: #### C DP, CMPX #### [facility] [address] [place] [address] Control Cabinet Assembler: David Montez MD Basophils/100 WBC (Bld) 0 % Normal 0-2 [facility] Comment on above: Performed By: #### C DP, CMPX #### [facility] [address] [place], [place] [address] Control Cabinet Assembler: David Montez MD Eosinophils/100 WBC (Bld) 0 % Low 1-4 [facility] Comment on above: Performed By: #### C DP, CMPX #### [facility] [address] [place], [place] [phone] Control Cabinet Assembler: David Montez MD Erythrocyte distribution width (RBC) [Ratio] 12.9 % Normal 11.8-14.4 [facility] Comment on above: Performed By: #### C DP, CMPX #### [facility] [address] [place], [place] [phone] Control Cabinet Assembler: David Montez MD Hematocrit (Bld) [Volume fraction] 43.1 % Normal 40.7-50.3 [facility] Comment on above: Performed By: #### C DP, CMPX #### [address] [place], [place] [phone] Control Cabinet Assembler: David Montez MD Hemoglobin (Bld) [Mass/Vol] 14.9 g/dL Normal 13.0-17.0 [facility] Comment on above: Performed By: #### C DP, CMPX #### [address] [place], [place] [phone] Control Cabinet Assembler: David Montez MD Immature granulocytes/100 WBC (Bld) 0 % Normal 0 [facility] Comment on above: Performed By: #### C DP, CMPX #### [facility] [address] [place], [place] [phone] Control Cabinet Assembler: David Montez MD Lymphocytes (Bld) [#/Vol] 1.30 10*3/uL Normal 1.10-3.70 [facility] Comment on above: Performed By: #### C DP, CMPX #### [facility] [address] [place], [place] [phone] Control Cabinet Assembler: David Montez MD Lymphocytes/100 WBC (Bld) 9 % Low 24-43 [facility] Comment on above: Performed By: #### C DP, CMPX #### [facility] [address] [place] [address] Control Cabinet Assembler: David Montez MD MCH (RBC) [Entitic mass] 33.9 pg High 25.2-33.5 [facility] Comment on above: Performed By: #### C DP, CMPX #### [facility] [address] [place] [address] Control Cabinet Assembler: David Montez MD MCHC (RBC) [Mass/Vol] 34.6 g/dL Normal 28.4-34.8 [facility] Comment on above: Performed By: #### C DP, CMPX #### [address] [place] [address] Control Cabinet Assembler: David Montez MD MCV (RBC) [Entitic vol] 98.0 fL Normal 82.6-102.9 [facility] Comment on above: Performed By: #### C DP, CMPX #### [address] [place] [address] Control Cabinet Assembler: David Montez MD Monocytes (Bld) [#/Vol] 0.58 10*3/uL Normal 0.10-1.20 [facility] Comment on above: Performed By: #### C DP, CMPX #### [facility] [address] [place], [place] [address] Control Cabinet Assembler: David Montez MD Monocytes/100 WBC (Bld) 4 % Normal 3-12 [facility] Comment on above: Performed By: #### C DP, CMPX #### [facility] [address] [place] [phone] Control Cabinet Assembler: David Montez MD Neutrophil (Seg) 87 % High 36-65 [facility] Comment on above: Performed By: #### C DP, CMPX #### [facility] [address] [place], [place] [phone] Control Cabinet Assembler: David Montez MD NRBC Automated 0.0 per 100 WBC Normal 0.0 [facility] Comment on above: Performed By: #### C DP, CMPX #### [facility] [address] [place], [place] [phone] Control Cabinet Assembler: David Montez MD Platelet mean volume (Bld) [Entitic vol] 9.2 fL Normal 8.1-13.5 [facility] Comment on above: Performed By: #### C DP, CMPX #### [address] [place] [address] Control Cabinet Assembler: David Montez MD Platelets (Bld) [#/Vol] 305 10*3/uL Normal 138-453 [facility] Comment on above: Performed By: #### C DP, CMPX #### [address] [place], [place] [phone] Control Cabinet Assembler: David Montez MD RBC (Bld) [#/Vol] 4.40 10*6/uL Normal 4.21-5.77 [facility] Comment on above: Performed By: #### C DP, CMPX #### [address] [place] [address] Control Cabinet Assembler: David Montez MD WBC (Bld) [#/Vol] 14.9 10*3/uL High 3.5-11.3 [facility] Comment on above: Performed By: #### C DP, CMPX #### [facility] [address] [place] [address] Control Cabinet Assembler: David Montez MD Comp Metabolic Pr/rfx MGon 0 - Albumin [Mass/Vol] 4.7 g/dL Normal 3.5-5.2 [facility] Comment on above: Performed By: #### C DP, BMPX #### [facility] [address] [place], [place] [id number] Control Cabinet Assembler: David Montez MD Albumin/Glob Ratio 1.2 Normal 1.0-2.5 [facility] Comment on above: Performed By: #### C DP, BMPX #### [facility] [address] [place], [place] [phone] Control Cabinet Assembler: David Montez MD Alkaline Phos 172 U/L High 40-129 [facility] Comment on above: Performed By: #### C DP, BMPX #### [facility] [address] [place], [place] [id number] Control Cabinet Assembler: David Montez MD ALT [Catalytic activity/Vol] 14 U/L Normal 5-41 [facility] Comment on above: Performed By: #### C DP, BMPX #### [facility] [address] [place], [place] [phone] Control Cabinet Assembler: David Montez MD Anion gap [Moles/Vol] 12 mmol/L Normal 9-17 [facility] Comment on above: Performed By: #### C DP, BMPX #### [facility] [address] [place], [place] [phone] Control Cabinet Assembler: David Montez MD AST [Catalytic activity/Vol] 16 U/L Normal <40 [facility] Comment on above: Performed By: #### C DP, BMPX #### [facility] [address] [place], [place] [phone] Control Cabinet Assembler: David Montez MD Bilirubin [Mass/Vol] 0.6 mg/dL Normal 0.3-1.2 [facility] Comment on above: Performed By: #### C DP, BMPX #### [facility] [address] [place], [place] [phone] Control Cabinet Assembler: David Montez MD BUN/CRE Ratio 23 High 9-20 [facility] Comment on above: Performed By: #### C DP, BMPX #### [facility] [address] [place], [place] [phone] Control Cabinet Assembler: David Montez MD Calcium [Mass/Vol] 10.7 mg/dL High 8.6-10.4 [facility] Comment on above: Performed By: #### C DP, BMPX #### [facility] [address] [place] [address] Control Cabinet Assembler: David Montez MD Chloride [Moles/Vol] 99 mmol/L Normal 98-107 [facility] Comment on above: Performed By: #### C DP, BMPX #### [facility] [address] [place], [place] [phone] Control Cabinet Assembler: David Montez MD CO2 [Moles/Vol] 32 mmol/L High 20-31 [facility] Comment on above: Performed By: #### C DP, BMPX #### [facility] [address] [place], [place] [phone] Control Cabinet Assembler: David Montez MD Creatinine [Mass/Vol] 1.72 mg/dL High 0.70-1.20 [facility] Comment on above: Performed By: #### C DP, BMPX #### [facility] [address] [place], [place] [phone] Control Cabinet Assembler: David Montez MD GFR/1.73 sq M.predicted among non-blacks MDRD (S/P/Bld) [Vol rate/Area] 43 mL/min/{1.73_m2} Low >60 [facility] Comment on above: Result Comment: These results are not intended for use in patients <18 years of age. eGFR results are calculated without a race factor using the 2020 CKD-EPI equation. Careful clinical correlation is recommended, particularly when comparing to results calculated using previous equations. The CKD-EPI equation is less accurate in patients with extremes of muscle mass, extra-renal metabolism of creatine, excessive creatine ingestion, or following therapy that affects renal tubular secretion. Performed By: #### C DP, BMPX #### [facility] [address] [place], [place] [phone] Control Cabinet Assembler: David Montez MD Glucose [Mass/Vol] 120 mg/dL High 70-99 [facility] Comment on above: Performed By: #### C DP, BMPX #### [facility] [address] [place], [place] [phone] Control Cabinet Assembler: David Montez MD Potassium [Moles/Vol] 4.3 mmol/L Normal 3.7-5.3 [facility] Comment on above: Performed By: #### C DP, BMPX #### [facility] [address] [place], [place] [phone] Control Cabinet Assembler: David Montez MD Protein [Mass/Vol] 8.6 g/dL High 6.4-8.3 [facility] Comment on above: Performed By: #### C DP, BMPX #### [facility] [address] [place], [place] [phone] Control Cabinet Assembler: David Montez MD Sodium [Moles/Vol] 143 mmol/L Normal 135-144 [facility] Comment on above: Performed By: #### C DP, BMPX #### [facility] [address] [place], [place] [phone] Control Cabinet Assembler: David Montez MD Urea nitrogen [Mass/Vol] 39 mg/dL High 8-23 [facility] Comment on above: Performed By: #### C DP, BMPX #### [facility] [address] [place] [address] Control Cabinet Assembler: David Montez MD Comprehensive Metabolic Pane l w/ Reflex to MGon 05-09-2022 Albumin [Mass/Vol] 4.7 g/dL 3.5 - 5.2 g/dL [facility] Albumin/Globulin [Mass ratio] 1.2 {ratio} 1.0 - 2.5 [facility] ALP [Catalytic activity/Vol] 172 U/L High 40 - 129 U/L [facility] ALT [Catalytic activity/Vol] 14 U/L 5 - 41 U/L [facility] Anion gap [Moles/Vol] 12 mmol/L 9 - 17 mmol/L [facility] AST [Catalytic activity/Vol] 16 U/L NINF - 40 U/L [facility] Bilirubin [Mass/Vol] 0.6 mg/dL 0.3 - 1 .2 mg/dL [facility] Calcium [Mass/Vol] 10.7 mg/dL High 8.6 - 10. 4 mg/dL [facility] Chloride [Moles/Vol] 99 mmol/L 98 - 10 7 mmol/L [facility] CO2 [Moles/Vol] 32 mmol/L High 20 - 31 mmol/L [facility] Creatinine [Mass/Vol] 1.72 mg/dL High 0.70 - 1.20 mg/dL [facility] GFR/1.73 sq M.predicted MDRD (S/P/Bld) [Vol rate/Area] 43 mL/min/{1.73_m2} Low - PINF [facility] Comment on above: These results are not intended for use in patients <18 years of age. eGFR results are calculated without a race factor using the 2020 CKD-EPI equation. Careful clinical correlation is recommended, particularly when comparing to results calculated using previous equations. The CKD-EPI equation is less accurate in patients with extremes of muscle mass, extra-renal metabolism of creatine, excessive creatine ingestion, or following therapy that affects renal tubular secretion. Glucose [Mass/Vol] 120 mg/dL High 70 - 99 mg/dL [facility] Interpretation and review of laboratory results Abnormal [facility] Potassium [Moles/Vol] 4.3 mmol/L 3.7 - 5.3 mmol/L [facility] Protein [Mass/Vol] 8.6 g/dL High 6.4 - 8.3 g/dL [facility] Sodium [Moles/Vol] 143 mmol/L 135 - 144 mmol/L [facility] Urea nitrogen [Mass/Vol] 39 mg/dL High 8 - 23 mg/dL [facility] Urea nitrogen/Creatinine (Bld) [Mass ratio] 23 High 9 - 20 [facility] Hepatic Function Panelon Albumin [Mass/Vol] 4.6 g/dL 3.5 - 5.2 g/dL [facility] Albumin/Globulin [Mass ratio] 1.1 {ratio} 1.0 - 2.5 [facility] ALP [Catalytic activity/Vol] 176 U/L High 40 - 129 U/L [facility] ALT [Catalytic activity/Vol] 15 U/L 5 - 41 U/L [facility] AST [Catalytic activity/Vol] 15 U/L NINF - 40 U/L [facility] Bilirubin [Mass/Vol] 0.4 mg/dL 0.3 - 1 .2 mg/dL [facility] Bilirubin.direct [Mass/Vol] mg/dL NINF - 0.3 mg/dL [facility] Bilirubin.indirect [Mass/Vol] Can not be calculated 0.0 - 1.0 mg/dL [facility] Protein [Mass/Vol] 8.8 g/dL High 6.4 - 8.3 g/dL [facility] Lactic Acidon 05-09-2022 Lactate [Moles/Vol] 1.5 mmol/L Normal 0.5-2.2 [facility] Comment on above: Performed By: #### C DP, CMPX #### [facility] [address] [place] [address] Control Cabinet Assembler: David Montez MD Lactate (P simon) [Moles/Vol] 1.5 mmol/L 0.5 - 2.2 mmol/L [facility] Lipaseon 05-09-2022 Lipase [Catalytic activity/Vol] 46 U/L Normal 13-60 [facility] Comment on above: Performed By: #### C DP, CMPX #### [facility] [address] [place] [address] Control Cabinet Assembler: David Montez MD Lipase [Catalytic activity/Vol] 46 U/L 13 - 60 U/L [facility] Liver Profileon 05-09-2022 Albumin [Mass/Vol] 4.6 g/dL Normal 3.5-5.2 [facility] Comment on above: Performed By: #### C DP, CMPX #### [facility] [address] [place], [place] [phone] Control Cabinet Assembler: David Montez MD Albumin/Glob Ratio 1.1 Normal 1.0-2.5 [facility] Comment on above: Performed By: #### C DP, CMPX #### [facility] [address] [place], [place] [phone] Control Cabinet Assembler: David Montez MD Alkaline Phos 176 U/L High 40-129 [facility] Comment on above: Performed By: #### C DP, CMPX #### [facility] [address] [place], [place] [phone] Control Cabinet Assembler: David Montez MD ALT [Catalytic activity/Vol] 15 U/L Normal 5-41 [facility] Comment on above: Performed By: #### C DP, CMPX #### [facility] [address] [place], [place] [phone] Control Cabinet Assembler: David Montez MD AST [Catalytic activity/Vol] 15 U/L Normal <40 [facility] Comment on above: Performed By: #### C DP, CMPX #### [facility] [address] [place], [place] [phone] Control Cabinet Assembler: David Montez MD Bilirubin [Mass/Vol] 0.4 mg/dL Normal 0.3-1.2 [facility] Comment on above: Performed By: #### C DP, CMPX #### [facility] [address] [place], [place] [phone] Control Cabinet Assembler: David Montez MD Bilirubin, Indirect Can not be calculated Normal 0.0-1.0 [facility] Comment on above: Performed By: #### C DP, CMPX #### [facility] [address] [place], [place] [phone] Control Cabinet Assembler: David Montez MD Bilirubin.indirect [Mass/Vol] mg/dL Normal <0.3 [facility] Comment on above: Performed By: #### C DP, CMPX #### [facility] [address] [place], [place] [phone] Control Cabinet Assembler: David Montez MD Protein [Mass/Vol] 8.8 g/dL High 6.4-8.3 [facility] Comment on above: Performed By: #### C DP, CMPX #### [facility] [address] [place] [address] [place] [address] Control Cabinet Assembler: David Montez MD Magnesiumon 05-09-2022 Magnesium [Mass/Vol] 1.9 mg/dL Normal 1.6-2.6 [facility] Comment on above: Performed By: #### C DP, CMPX #### [address] [place] [address] Control Cabinet Assembler: David Montez MD Magnesium [Mass/Vol] 1.9 mg/dL 1.6 - 2 .6 mg/dL [facility] No Panel Informationon 05-09 Interpretation and review of laboratory results Abnormal [facility] XR ABDOMEN (KUB) (SINGLE AP VIEW)on 05-09-2022 XR ABDOMEN (KUB) (SINGLE AP VIEW) EXAMINATION: ONE SUPINE XRAY VIEW(S) OF THE ABDOMEN 05/09/2022 7:44 am COMPARISON: Abdominal radiograph performed 05/09/2022. HISTORY: ORDERING SYSTEM PROVIDED HISTORY: bowel obst TECHNOLOGIST PROVIDED HISTORY: bowel obst FINDINGS: There are dilated air-filled loops of bowel within the mid abdomen. There is no free air. There are no suspicious calcifications. There is a gastric tube with the tip in the gastric fundus. There is no acute osseous abnormality. The surrounding soft tissues are unremarkable. IMPRESSION: Dilated air-filled loops of bowel concerning for degree of obstruction. Gastric tube with the tip in the gastric fundus. Interpreted by: Toby Lofton MD Signed by: Toby Lofton MD 05/09/22 Final result Normal [facility] Dilated air-filled loops of bowel concerning for degree of obstruction. Gastric tube with the tip in the gastric fundus. [facility] EXAMINATION: ONE SUPINE XRAY VIEW(S) OF THE ABDOMEN 05/09/2022 7:44 am COMPARISON: Abdominal radiograph performed 05/09/2022. HISTORY: ORDERING SYSTEM PROVIDED HISTORY: bowel obst TECHNOLOGIST PROVIDED HISTORY: bowel obst FINDINGS: There are dilated air-filled loops of bowel within the mid abdomen. There is no free air. There are no suspicious calcifications. There is a gastric tube with the tip in the gastric fundus. There is no acute osseous abnormality. The surrounding soft tissues are unremarkable. [facility] Toby Lofton MD - 05/09/2022 EXAMINATION: ONE SUPINE XRAY VIEW(S) OF THE ABDOMEN 05/09/2022 7:44 am COMPARISON: Abdominal radiograph performed 05/09/2022. HISTORY: ORDERING SYSTEM PROVIDED HISTORY: bowel obst TECHNOLOGIST PROVIDED HISTORY: bowel obst FINDINGS: There are dilated air-filled loops of bowel within the mid abdomen. There is no free air. There are no suspicious calcifications. There is a gastric tube with the tip in the gastric fundus. There is no acute osseous abnormality. The surrounding soft tissues are unremarkable. IMPRESSION: Dilated air-filled loops of bowel concerning for degree of obstruction. Gastric tube with the tip in the gastric fundus. [facility] [employer] Work Phone: Radiology Study observation (narrative) [facility] [employer] Phone: XR ABDOMEN (KUB) (SINGLE AP VIEW) EXAMINATION: ONE SUPINE XRAY VIEW(S) OF THE ABDOMEN 05/09/2022 12:48 am COMPARISON: Abdominal x-ray 10/28/2013. HISTORY: ORDERING SYSTEM PROVIDED HISTORY: SBO TECHNOLOGIST PROVIDED HISTORY: SBO FINDINGS: Multiple dilated small bowel loops containing intraluminal air, ileus versus small-bowel obstruction. The stomach is distended with intraluminal air. Lower lungs are clear. No free air. Bony structures are unremarkable. IMPRESSION: Multiple dilated small bowel loops, ileus versus small-bowel obstruction. The stomach is distended with intraluminal air. Interpreted by: Geovany Dove MD Signed by: Geovany Dove MD 05/09/22 Final result Normal [facility] Multiple dilated small bowel loops, ileus versus small-bowel obstruction. The stomach is distended with intraluminal air. [facility] EXAMINATION: ONE SUPINE XRAY VIEW(S) OF THE ABDOMEN 05/09/2022 12:48 am COMPARISON: Abdominal x-ray 10/28/2013. HISTORY: ORDERING SYSTEM PROVIDED HISTORY: SBO TECHNOLOGIST PROVIDED HISTORY: SBO FINDINGS: Multiple dilated small bowel loops containing intraluminal air, ileus versus small-bowel obstruction. The stomach is distended with intraluminal air. Lower lungs are clear. No free air. Bony structures are unremarkable. [facility] Geovany Dove MD - 05/09/2022 EXAMINATION: ONE SUPINE XRAY VIEW(S) OF THE ABDOMEN 05/09/2022 12:48 am COMPARISON: Abdominal x-ray 10/28/2013. HISTORY: ORDERING SYSTEM PROVIDED HISTORY: SBO TECHNOLOGIST PROVIDED HISTORY: SBO FINDINGS: Multiple dilated small bowel loops containing intraluminal air, ileus versus small-bowel obstruction. The stomach is distended with intraluminal air. Lower lungs are clear. No free air. Bony structures are unremarkable. IMPRESSION: Multiple dilated small bowel loops, ileus versus small-bowel obstruction. The stomach is distended with intraluminal air. [employer] Phone: Radiology Study observation (narrative) [employer] Phone: XR ABDOMEN (KUB) (SINGLE AP VIEW)Ordered By: Toby Lofton on 05-09-2022 [facility] [employer] Phone: XR ABDOMEN (KUB) (SINGLE AP VIEW)Ordered By: Geovany oDve on 05-09-2022 [facility] [employer] Phone: XR ABDOMEN FOR NG/OG/NE TUBE PLACEMENTon 05-09-2022 XR ABDOMEN FOR NG/OG/NE TUBE PLACEMENT EXAMINATION: ONE SUPINE XRAY VIEW(S) OF THE ABDOMEN 05/09/2022 1:11 am COMPARISON: Abdominal x-ray 05/09/2022 HISTORY: ORDERING SYSTEM PROVIDED HISTORY: Confirmation of course of NG/OG/NE tube and location of tip of tube TECHNOLOGIST PROVIDED HISTORY: Confirmation of course of NG/OG/NE tube and location of tip of tube Portable?->Yes FINDINGS: Tip of the enteric tube projects over the gastric body, side port projects over the gastric body. Partially imaged bowel loops are dilated, similar to prior. Lower lung matta are clear. Bony structures are unremarkable. IMPRESSION: Tip of the enteric tube projects over the gastric body, side port projects over the gastric body. Partially imaged bowel loops are dilated, similar to prior. Interpreted by: Geovany Dove MD Signed by: Geovany Dove MD 05/09/22 Final result Normal [facility] Tip of the enteric tube projects over the gastric body, side port projects over the gastric body. Partially imaged bowel loops are dilated, similar to prior. [facility] EXAMINATION: ONE SUPINE XRAY VIEW(S) OF THE ABDOMEN 05/09/2022 1:11 am COMPARISON: Abdominal x-ray 05/09/2022 HISTORY: ORDERING SYSTEM PROVIDED HISTORY: Confirmation of course of NG/OG/NE tube and location of tip of tube TECHNOLOGIST PROVIDED HISTORY: Confirmation of course of NG/OG/NE tube and location of tip of tube Portable?->Yes FINDINGS: Tip of the enteric tube projects over the gastric body, side port projects over the gastric body. Partially imaged bowel loops are dilated, similar to prior. Lower lung matta are clear. Bony structures are unremarkable. [facility] Geovany Dove MD - 05/09/2022 EXAMINATION: ONE SUPINE XRAY VIEW(S) OF THE ABDOMEN 05/09/2022 1:11 am COMPARISON: Abdominal x-ray 05/09/2022 HISTORY: ORDERING SYSTEM PROVIDED HISTORY: Confirmation of course of NG/OG/NE tube and location of tip of tube TECHNOLOGIST PROVIDED HISTORY: Confirmation of course of NG/OG/NE tube and location of tip of tube Portable?->Yes FINDINGS: Tip of the enteric tube projects over the gastric body, side port projects over the gastric body. Partially imaged bowel loops are dilated, similar to prior. Lower lung matta are clear. Bony structures are unremarkable. IMPRESSION: Tip of the enteric tube projects over the gastric body, side port projects over the gastric body. Partially imaged bowel loops are dilated, similar to prior. [facility] Work Phone: [facility] Work Phone: Radiology Study observation (narrative) [facility] Work Phone: CBC with Auto Differentialon 05-08-2022 Absolute Eos # [facility] Absolute Immature Granulocyte 0.06 [facility] Absolute Lymph # 1.30 [facility] Absolute [place] # 0.58 [facility] Basophils (Bld) [#/Vol] 0.05 10*3/uL [facility] Basophils/100 WBC (Bld) 0 % 0 - 2 % [facility] Eosinophils/100 WBC (Bld) 0 % Low 1 - 4 % [facility] Hematocrit (Bld) [Volume fraction] 43.1 % 40.7 - 50.3 % [facility] Hemoglobin (Bld) [Mass/Vol] 14.9 g/dL 13.0 - 17.0 g/dL [facility] Immature granulocytes/100 WBC (Bld) 0 % 0 [facility] Interpretation and review of laboratory results Abnormal [facility] Lymphocytes/100 WBC (Bld) 9 % Low 24 - 43 % [facility] MCH (RBC) [Entitic mass] 33.9 pg High 25.2 - 33.5 pg [facility] MCHC (RBC) [Mass/Vol] 34.6 g/dL 28.4 - 34.8 g/dL [facility] MCV (RBC) [Entitic vol] 98.0 fL 82.6 - 102.9 fL [facility] Monocytes/100 WBC (Bld) 4 % 3 - 12 % [facility] NRBC Automated 0.0 0.0 per 100 WBC [facility] Platelet distribution width (Bld) [Ratio] 12.9 % 11.8 - 14.4 % [facility] Platelet mean volume (Bld) [Entitic vol] 9.2 fL 8.1 - 13.5 fL [facility] Platelets (Bld) [#/Vol] 305 10*3/uL [facility] RBC (Bld) [#/Vol] 4.40 10*6/uL 4.21 - 5.7 7 m/uL [facility] Segmented neutrophils/100 WBC (Bld) 87 % High 36 - 65 % [facility] Segs Absolute 12.89 High [facility] WBC (Bld) [#/Vol] 14.9 10*3/uL High [facility] Cult,Urineon 05-06-2022 Cult,Urine Specimen Description .VOIDED URINE Culture NO GROWTH Report Status FINAL 05/06/2022 Normal [facility] Comment on above: Performed By: #### YULIYA COUGHLIN, CDP #### [facility] [address] [place] [address] Control Cabinet Assembler: David Montez MD Microscopic Urinalysison Amorphous, UA TRACE Abnormal None [facility] Bacteria, UA 1+ Abnormal None [facility] Epithelial Cells UA None [facility] Interpretation and review of laboratory results Abnormal [facility] RBC clumps Auto (Urine sed) [#/Area] None [facility] WBC, UA None [facility] UA w/Reflex Cultureon 2022 Bilirubin, SemiQt,Ur Negative Normal NEG [facility] Comment on above: Performed By: #### YULIYA COUGHLIN, CDP #### [facility] [address] [place] [address] Control Cabinet Assembler: David Montez MD Blood, Urine Negative Normal NEG [facility] Comment on above: Performed By: #### YULIYA COUGHLIN, CDP #### [facility] [address] [place] [address] Control Cabinet Assembler: David Montez MD Clarity (U) Clear Normal CLEAR [facility] Comment on above: Performed By: #### YULIYA COUGHLIN, CDP #### [facility] [address] [place], [place] [phone] Control Cabinet Assembler: David Montez MD Color (U) Yellow Normal YEL [facility] Comment on above: Performed By: #### R EJEC, IPF, CDP #### [facility] [address] [place], [place] [phone] Control Cabinet Assembler: David Montez MD Glucose Ql (U) Negative Normal NEG [facility] Comment on above: Performed By: #### R EJRELL, IPF, CDP #### [address] [place], [place] [phone] Control Cabinet Assembler: David Montez MD Ketones Ql (U) Negative Normal NEG [facility] Comment on above: Performed By: #### R ANNE MARIE, IPF, CDP #### [address] [place], [place] [phone] Control Cabinet Assembler: David Montez MD Leukocyte esterase Test strip Ql (U) Negative Normal NEG [facility] Comment on above: Performed By: #### R EJRELL, IPF, CDP #### [address] [place], [place] [phone] Control Cabinet Assembler: David Montez MD Nitrite,Ur Negative Normal NEG [facility] Comment on above: Performed By: #### R EJEC, IPF, CDP #### [facility] [address] [place] [address] [place], [place] [phone] Control Cabinet Assembler: David Montez MD PH,Ur 6.5 Normal 5.0-9.0 [facility] Comment on above: Performed By: #### R EJEC, IPF, CDP #### [address] [place], [place] [phone] Control Cabinet Assembler: David Montez MD Protein Ql (U) Negative Normal NEG [facility] Comment on above: Performed By: #### R EJEC IPF, CDP #### [facility] [address] [place] [address] Control Cabinet Assembler: David Montez MD Spec. [place],Ur 1.020 Normal 1.010-1.020 [facility] Comment on above: Performed By: #### R YULIYA KENNEY, CDP #### [facility] [facility] [address] [place], [place] [id number] Control Cabinet Assembler: David Montez MD Urobilinogen,Ur Normal Normal NORM [facility] Comment on above: Performed By: #### YULIYA COUGHLIN, CDP #### [facility] [address] [place] [address] Control Cabinet Assembler: David Montez MD Urinalysis with Reflex to Cu ltureon 05-05-2022 Bilirubin Urine Negative NEGATIVE [facility] Color, UA Yellow Yellow [facility] Glucose Auto test strip (U) [Mass/Vol] Negative NEGATIVE [facility] Ketones (U) [Mass/Vol] Negative NEGATIVE [facility] Leukocyte esterase Auto test strip Ql (U) Negative NEGATIVE [facility] Nitrite Auto test strip Ql (U) Negative NEGATIVE [facility] Protein (U) [Mass/Vol] 6.5 mg/dL 5.0 - 9.0 [facility] Protein (U) [Mass/Vol] Negative NEGATIVE [facility] Specific [place], UA 1.020 1.010 - 1.020 [facility] Turbidity UA Clear Clear [facility] Urine Hgb Negative NEGATIVE [facility] Urobilinogen, Urine Normal Normal [facility] Urinalysis,Microon 3 Amorphous sediment LM Ql (Urine sed) TRACE Abnormal NONE [facility] Comment on above: Performed By: #### R YULIYA KENNEY, CDP #### [facility] [address] [place] [address] Control Cabinet Assembler: David Montez MD Bacteria 1+ Abnormal NONE [facility] Comment on above: Performed By: #### R YULIYA KENNEY, CDP #### [facility] [address] [place], [place] [id number] Control Cabinet Assembler: David Montez MD Epithelial cells LM Ql (Urine sed) None Normal 0-5 [facility] Comment on above: Performed By: #### YULIYA COUGHLIN, CDP #### [facility] [address] [place], [place] [id number] Control Cabinet Assembler: David Montez MD Urine RBC's None Normal 0-2 [facility] Comment on above: Performed By: #### YULIYA COUGHLIN, CDP #### [facility] [address] [place], [place] [id number] Control Cabinet Assembler: David Montez MD Urine WBC's None Normal 0-5 [facility] Comment on above: Performed By: #### YULIYA COUGHLIN, CDP #### [facility] [address] [place], [place] [id number] Control Cabinet Assembler: David Montez MD CBC with Auto Differentialon 03-22-2022 Absolute Eos # 0.16 [place] [facility] Absolute Immature Granulocyte [facility] Absolute Lymph # 1.71 [facility] Absolute [place] # 0.29 [facility] Basophils (Bld) [#/Vol] 0.05 10*3/uL [facility] Basophils/100 WBC (Bld) 1 % 0 - 2 % [facility] Eosinophils/100 WBC (Bld) 2 % 1 - 4 % [facility] Hematocrit (Bld) [Volume fraction] 39.3 % Low 40.7 - 50.3 % [facility] Hemoglobin (Bld) [Mass/Vol] 12.6 g/dL Low 13.0 - 17.0 g/dL [facility] Immature granulocytes/100 WBC (Bld) 0 % 0 [facility] Interpretation and review of laboratory results Abnormal [facility] Lymphocytes/100 WBC (Bld) 24 % 24 - 43 % [facility] MCH (RBC) [Entitic mass] 32.5 pg 25.2 - 33.5 pg [facility] MCHC (RBC) [Mass/Vol] 32.1 g/dL 28.4 - 34.8 g/dL [facility] MCV (RBC) [Entitic vol] 101.3 fL 82.6 - 102.9 fL [facility] Monocytes/100 WBC (Bld) 4 % 3 - 12 % [facility] NRBC Automated 0.0 0.0 per 100 WBC [facility] Platelet distribution width (Bld) [Ratio] 12.2 % 11.8 - 14.4 % [facility] Platelet mean volume (Bld) [Entitic vol] 9.2 fL 8.1 - 13.5 fL [facility] Platelets (Bld) [#/Vol] 206 10*3/uL [facility] RBC (Bld) [#/Vol] 3.88 10*6/uL Low 4.21 - 5.7 7 m/uL [facility] Segmented neutrophils/100 WBC (Bld) 69 % High 36 - 65 % [facility] Segs Absolute 4.99 [facility] WBC (Bld) [#/Vol] 7.2 10*3/uL [facility] Vitamin B12 & Folateon 03-22 Cobalamin (Vitamin B12) [Mass/Vol] 295 pg/mL 232 - 1245 pg/mL [facility] Folate 14.2 ng/mL 4.8 - PINF ng/mL [facility] Ammoniaon 02-08-2022 Ammonia (P) [Moles/Vol] 27 umol/L 16 - 60 umol/L [facility] Basic Metabolic Panelon Anion gap [Moles/Vol] 8 mmol/L Low 9 - 17 mmol/L [facility] Calcium [Mass/Vol] 9.3 mg/dL 8.6 - 10. 4 mg/dL [facility] Chloride [Moles/Vol] 107 mmol/L 98 - 10 7 mmol/L [facility] CO2 [Moles/Vol] 28 mmol/L 20 - 31 mmol/L [facility] Creatinine [Mass/Vol] 1 mg/dL 0.70 - 1.20 mg/dL [facility] GFR/1.73 sq M.predicted MDRD (S/P/Bld) [Vol rate/Area] - PINF [facility] Comment on above: Effective Dec 05, 2021 These results are not intended for use in patients <18 years of age. eGFR results are calculated without a race factor using the 2020 CKD-EPI equation. Careful clinical correlation is recommended, particularly when comparing to results calculated using previous equations. The CKD-EPI equation is less accurate in patients with extremes of muscle mass, extra-renal metabolism of creatine, excessive creatine ingestion, or following therapy that affects renal tubular secretion. Glucose [Mass/Vol] 88 mg/dL 70 - 99 mg/dL [facility] Potassium [Moles/Vol] 4.9 mmol/L 3.7 - 5.3 mmol/L [facility] Sodium [Moles/Vol] 143 mmol/L 135 - 144 mmol/L [facility] Urea nitrogen (BldV) [Mass/Vol] 15 mg/dL 8 - 23 mg/dL [facility] Urea nitrogen/Creatinine (Bld) [Mass ratio] 15 9 - 20 [facility] CBC with Auto Differentialon 02-08-2022 Absolute Eos # 0.19 [place] [facility] Absolute Immature Granulocyte [facility] Absolute Lymph # 1.74 [facility] Absolute [place] # 0.49 [facility] Basophils (Bld) [#/Vol] 0.03 10*3/uL [facility] Basophils/100 WBC (Bld) 1 % 0 - 2 % [facility] Eosinophils/100 WBC (Bld) 4 % 1 - 4 % [facility] Hematocrit (Bld) [Volume fraction] 37.3 % Low 40.7 - 50.3 % [facility] Hemoglobin (Bld) [Mass/Vol] 12.1 g/dL Low 13.0 - 17.0 g/dL [facility] Immature granulocytes/100 WBC (Bld) 0 % 0 [facility] Interpretation and review of laboratory results Abnormal [facility] Lymphocytes/100 WBC (Bld) 32 % 24 - 43 % [facility] MCH (RBC) [Entitic mass] 33.4 pg 25.2 - 33.5 pg [facility] MCHC (RBC) [Mass/Vol] 32.4 g/dL 28.4 - 34.8 g/dL [facility] MCV (RBC) [Entitic vol] 103.0 fL High 82.6 - 102.9 fL [facility] Monocytes/100 WBC (Bld) 9 % 3 - 12 % [facility] NRBC Automated 0.0 0.0 per 100 WBC [facility] Platelet distribution width (Bld) [Ratio] 12.9 % 11.8 - 14.4 % [facility] Platelet mean volume (Bld) [Entitic vol] 9.1 fL 8.1 - 13.5 fL [facility] Platelets (Bld) [#/Vol] 189 10*3/uL [facility] RBC (Bld) [#/Vol] 3.62 10*6/uL Low 4.21 - 5.7 7 m/uL [facility] Segmented neutrophils/100 WBC (Bld) 54 % 36 - 65 % [facility] Segs Absolute 2.91 [facility] WBC (Bld) [#/Vol] 5.4 10*3/uL [facility] Hepatic Function Panelon Albumin [Mass/Vol] 4 g/dL 3.5 - 5.2 g/dL [facility] Albumin/Globulin [Mass ratio] 1.3 {ratio} 1.0 - 2.5 [facility] ALP (Bld) [Catalytic activity/Vol] 140 U/L High 40 - 129 U/L [facility] ALT [Catalytic activity/Vol] 13 U/L 5 - 41 U/L [facility] AST [Catalytic activity/Vol] 13 U/L NINF - 40 U/L [facility] Bilirubin [Mass/Vol] 0.2 mg/dL Low 0.3 - 1 .2 mg/dL [facility] Bilirubin, Indirect Can not be calculated 0.0 - 1.0 mg/dL [facility] Bilirubin.indirect [Mass/Vol] mg/dL NINF - 0.3 mg/dL [facility] Protein [Mass/Vol] 7.1 g/dL 6.4 - 8.3 g/dL [facility] Lamotrigine Levelon 02-09-20 Lamotrigine Lvl 14 ug/mL 3.0 - 15.0 ug/mL [facility] Comment on above: Neither a therapeutic or toxic range for Lamotrigine have been well established. Some reports suggest a target for steady-state concentrations of 3 - 15 ug/mL. However, there is not a clear relationship between lamotrigine serum concentrations and clinical response. The assay should be used in conjunction with information available from clinical evaluations and other diagnostic procedures. Multiple measurements of lamotrigine may be needed. [facility] Levetiracetam Levelon 2021 Levetiracetam Lvl 42 ug/mL [facility] Comment on above: A reference range for Keppra has not been well established. The proposed therapeutic range for seizure control is 6-46 ug/mL. Measurement of Levetiracetam (Keppra) can be elevated due to the presence of both Keppra and Brivaracetam (Briviact) in the patient's system. The medications are structurally similar thus cross reactivity is possible. Pharmacokinetics of Keppra are affected by renal function. The relationship between serum concentrations and toxicity is not known. [facility] No Panel Informationon 02-08 Interpretation and review of laboratory results Abnormal [facility] Phenobarbital Levelon 2021 Interpretation and review of laboratory results Abnormal [facility] PHENobarbital [Mass/Vol] 13.9 ug/mL Low 15 - 40 ug/mL [facility] XR MODIFIED BARIUM SWALLOWon 10-04-2021 XR MODIFIED BARIUM SWALLOW EXAMINATION: XR MODIFIED BARIUM SWALLOW HISTORY: Dysphagia COMPARISON: No relevant comparison available. TECHNIQUE: A swallowing evaluation was performed with fluoroscopy in the usual manner. Standard level fluoroscopic mode of operation utilized. FINDINGS: ORAL PHASE: Rapid movement of liquids and solids from the oral cavity into the pharynx with little chewing or manipulation of solids. PHARYNGEAL PHASE: Normal swallowing function. ASPIRATION: Silent aspiration during an episode of swallowing thin liquid. Penetration appears to occur with some regularity during swallowing thin liquids. No appreciable penetration with nectar thickened liquid. STRUCTURE: Normal. No visible obstruction, stricture, or dilatation. OTHER: Negative. IMPRESSION: 1. Silent aspiration during swallowing thin liquid. Please see details above. 2. Please see speech pathologist's report for further discussion of findings and for recommendations. Electronically authenticated by: LIZZ MCCOY Date: 2021-10-04 11:54 Normal [facility] BMPon 09-10-2021 Anion gap [Moles/Vol] 12 mmol/L 9 - 17 mmol/L [facility] Calcium [Mass/Vol] 9.3 mg/dL 8.6 - 10. 4 mg/dL [facility] Chloride [Moles/Vol] 103 mmol/L 98 - 10 7 mmol/L [facility] CO2 [Moles/Vol] 25 mmol/L 20 - 31 mmol/L [facility] Creatinine [Mass/Vol] 0.96 mg/dL 0.70 - 1.20 mg/dL [facility] GFR >60 >60 mL/min [facility] GFR Non- >60 >60 mL/min [facility] Glucose [Mass/Vol] 97 mg/dL 70 - 99 mg/dL [facility] Interpretation and review of laboratory results Abnormal [facility] Potassium [Moles/Vol] 4.3 mmol/L 3.7 - 5.3 mmol/L [facility] Sodium [Moles/Vol] 140 mmol/L 135 - 144 mmol/L [facility] Urea nitrogen (BldV) [Mass/Vol] 28 mg/dL High 8 - 23 mg/dL [facility] Urea nitrogen/Creatinine (Bld) [Mass ratio] 29 High [facility] CBC with Auto Differentialon 09-10-2021 Absolute Eos # 0.24 [facility] Absolute Immature Granulocyte <0.03 [facility] Absolute Lymph # 1.49 [facility] Absolute [place] # 0.81 [facility] Basophils (Bld) [#/Vol] 0.06 10*3/uL [facility] Basophils/100 WBC (Bld) 1 % 0 - 2 % [facility] Eosinophils/100 WBC (Bld) 3 % 1 - 4 % [facility] Hematocrit (Bld) [Volume fraction] 36.2 % Low 40.7 - 50.3 % [facility] Hemoglobin (Bld) [Mass/Vol] 11.5 g/dL Low 13.0 - 17.0 g/dL [facility] Immature granulocytes/100 WBC (Bld) 0 % 0 [facility] Interpretation and review of laboratory results Abnormal [facility] Lymphocytes/100 WBC (Bld) 19 % Low 24 - 43 % [facility] MCH (RBC) [Entitic mass] 31.8 pg 25.2 - 33.5 pg [facility] MCHC (RBC) [Mass/Vol] 31.8 g/dL 28.4 - 34.8 g/dL [facility] MCV (RBC) [Entitic vol] 100.0 fL 82.6 - 102.9 fL [facility] Monocytes/100 WBC (Bld) 10 % 3 - 12 % [facility] NRBC Automated 0.0 0.0 per 100 WBC [facility] Platelet distribution width (Bld) [Ratio] 13.3 % 11.8 - 14.4 % [facility] Platelet mean volume (Bld) [Entitic vol] 8.8 fL 8.1 - 13.5 fL [facility] Platelets (Bld) [#/Vol] 213 10*3/uL [facility] RBC (Bld) [#/Vol] 3.62 10*6/uL Low 4.21 - 5.7 7 m/uL [facility] Segmented neutrophils/100 WBC (Bld) 67 % High 36 - 65 % [facility] Segs Absolute 5.18 [facility] WBC (Bld) [#/Vol] 7.8 10*3/uL [facility] CT Head WO Contraston 2021 1. No acute abnormality is identified. 2. Stable appearing asymmetric atrophic change within the right cerebral hemisphere, with encephalomalacia of the right parietooccipital lobe and associated ex vacuo dilation of the right lateral ventricle, similar to the prior study. [facility] EXAMINATION: CT OF THE HEAD WITHOUT CONTRAST 09/10/2021 10:06 pm TECHNIQUE: CT of the head was performed without the administration of intravenous contrast. Automated exposure control, iterative reconstruction, and/or weight based adjustment of the mA/kV was utilized to reduce the radiation dose to as low as reasonably achievable. COMPARISON: 03/04/2013 HISTORY: ORDERING SYSTEM PROVIDED HISTORY: seizure TECHNOLOGIST PROVIDED HISTORY: seizure Decision Support Exception - unselect if not a suspected or confirmed emergency medical condition->Emergency Medical Condition (MA) FINDINGS: BRAIN/VENTRICLES: There is no acute intracranial hemorrhage, mass effect or midline shift. No abnormal extra-axial fluid collection. The romano-white differentiation is maintained without evidence of an acute infarct. There is no evidence of hydrocephalus. Intracranial atherosclerosis is identified. Asymmetric atrophy of the right cerebral hemisphere, with prominent sulci and encephalomalacia involving the right parietal and occipital lobe. Ex vacuo dilation of the right lateral ventricle is noted as well, similar to the previous examination. No acute wedge-shaped area of ischemia. No basilar cistern or sulcal effacement. ORBITS: The visualized portion of the orbits demonstrate no acute abnormality. SINUSES: Complete opacification of the left maxillary sinus. Sequela of remote appearing left orbital floor fracture. Mild chronic mucosal thickening seen within the ethmoid air cells. Mastoid air cells appear well aerated. Cerumen noted in the external auditory canal bilaterally, left greater than right. SOFT TISSUES/SKULL: No acute abnormality of the visualized skull or soft tissues. [facility] David Miles MD - 09/10/2021 EXAMINATION: CT OF THE HEAD WITHOUT CONTRAST 09/10/2021 10:06 pm TECHNIQUE: CT of the head was performed without the administration of intravenous contrast. Automated exposure control, iterative reconstruction, and/or weight based adjustment of the mA/kV was utilized to reduce the radiation dose to as low as reasonably achievable. COMPARISON: 03/04/2013 HISTORY: ORDERING SYSTEM PROVIDED HISTORY: seizure TECHNOLOGIST PROVIDED HISTORY: seizure Decision Support Exception - unselect if not a suspected or confirmed emergency medical condition->Emergency Medical Condition (MA) FINDINGS: BRAIN/VENTRICLES: There is no acute intracranial hemorrhage, mass effect or midline shift. No abnormal extra-axial fluid collection. The romano-white differentiation is maintained without evidence of an acute infarct. There is no evidence of hydrocephalus. Intracranial atherosclerosis is identified. Asymmetric atrophy of the right cerebral hemisphere, with prominent sulci and encephalomalacia involving the right parietal and occipital lobe. Ex vacuo dilation of the right lateral ventricle is noted as well, similar to the previous examination. No acute wedge-shaped area of ischemia. No basilar cistern or sulcal effacement. ORBITS: The visualized portion of the orbits demonstrate no acute abnormality. SINUSES: Complete opacification of the left maxillary sinus. Sequela of remote appearing left orbital floor fracture. Mild chronic mucosal thickening seen within the ethmoid air cells. Mastoid air cells appear well aerated. Cerumen noted in the external auditory canal bilaterally, left greater than right. SOFT TISSUES/SKULL: No acute abnormality of the visualized skull or soft tissues. IMPRESSION: 1. No acute abnormality is identified. 2. Stable appearing asymmetric atrophic change within the right cerebral hemisphere, with encephalomalacia of the right parietooccipital lobe and associated ex vacuo dilation of the right lateral ventricle, similar to the prior study. [employer] Work Phone: Radiology Study observation (narrative) [employer] Work Phone: CT Head WO ContrastOrdered B y: David Miles on 09-10-2021 [employer] Work Phone: Laboratory - Chemistry and C hemistry - challengeon 09-10-2021 GFR/1.73 sq M.predicted MDRD (S/P/Bld) [Vol rate/Area] [facility] Comment on above: Average GFR for 60-6 9 years old: 85 mL/min/1.73sq m Chronic Kidney Disease: <60 mL/min/1.73sq m Kidney failure: <15 mL/min/1.73sq m eGFR calculated using average adult body mass. Additional eGFR calculator available at: http://www.[employer]/multiple_crcl_2012.htm Stage 1: Some kidney damage normal GFR Stage 2: Mild kidney damage GFR 60-89 Stage 3: Moderate kidney damage GFR 30-59 Stage 4: Severe kidney damage GFR 15-29 Stage 5: Severe kidney damage GFR <15 ESRD - chronic treatment by dialysis or transplant CHEMISTRYOrdered By: SYSTEM SYSTEM on 07-03-2021 Anion gap [Moles/Vol] 13 mmol/L Normal 6 - 16 mEq/L [facility] Calcium [Mass/Vol] 8.8 mg/dL Low 8.9 - 11. 1 mg/dL [facility] Chloride [Moles/Vol] 101 mmol/L Normal 101 - 1 11 mmol/L [facility] CO2 [Moles/Vol] 22 mmol/L Normal 21 - 31 mmol/L [facility] Creatinine [Mass/Vol] 0.9 mg/dL Normal 0.5 - 1.3 mg/dL [facility] Remisol GFR/1.73 sq M.predicted among blacks MDRD (S/P/Bld) [Vol rate/Area] mL/min/1.73 m2 Normal >=59mL/min/ 1.73 m2 [facility] GFR/1.73 sq M.predicted among non-blacks MDRD (S/P/Bld) [Vol rate/Area] mL/min/1.73 m2 Normal >=59mL/min/ 1.73 m2 [facility] S Glucose [Mass/Vol] 95 mg/dL Normal 55 - 199 mg/dL [facility] Potassium [Moles/Vol] 4.4 mmol/L Normal 3.5 - 5.3 mmol/L [facility] Sodium [Moles/Vol] 132 mmol/L Low 135 - 145 mmol/L [facility] Urea nitrogen [Mass/Vol] 13 mg/dL Normal 5 - 21 mg/dL [facility] Urea nitrogen/Creatinine [Mass ratio] 14 mg/mg Normal 10 - 20 [facility] Remisol HEMATOLOGYOrdered By: SYSTEM SYSTEM on 07-03-2021 Basophils/100 WBC (Bld) 1.1 % Normal 0.0 - 2.0 % [facility] Basophils/Leukocytes Auto (Bld) [Pure # fraction] 0.1 E9/L Normal 0.0 - 0.2 E9/L [facility] Eosinophils/100 WBC (Bld) 6.0 % Normal 0.0 - 8.0 % [facility] Eosinophils/Leukocytes Auto (Bld) [Pure # fraction] 0.5 E9/L Normal 0.0 - 0.5 E9/L [facility] Lymphocytes/100 WBC (Bld) 21.0 % Normal 14.0 - 50.0 % [facility] Lymphocytes/Leukocytes Auto (Bld) [Pure # fraction] 1.7 E9/L Normal 1.0 - 4.0 E9/L [facility] Monocytes/100 WBC (Bld) 8.0 % Normal 4.0 - 14.0 % [facility] Monocytes/Leukocytes Auto (Bld) [Pure # fraction] 0.6 E9/L Normal 0.2 - 1.0 E9/L [facility] Neutrophils/100 WBC (Bld) 63.9 % Normal 36.0 - 75.0 % [facility] Neutrophils/Leukocytes Auto (Bld) [Pure # fraction] 5.1 E9/L Normal 2.0 - 7.5 E9/L [facility] HEMATOLOGYOrdered By: Dari See on 07-03-2021 Erythrocyte distribution width (RBC) [Ratio] 13.8 % Normal 10.9 - 14.2 % [facility] Hematocrit (Bld) [Volume fraction] 32.0 % Low 37.7 - 49.0 % [facility] Hemoglobin (Bld) [Mass/Vol] 10.8 g/dL Low 13.5 - 17.5 gm/dL [facility] MCH (RBC) [Entitic mass] 32.5 pg Normal 27.0 - 34.0 pg [facility] MCHC (RBC) [Mass/Vol] 33.8 g/dL Normal 31.4 - 36.0 gm/dL [facility] MCV (RBC) [Entitic vol] 96.0 fL Normal 80.0 - 100.0 fL [facility] Platelet mean volume (Bld) [Entitic vol] 6.9 fL Normal 6.4 - 10.8 fL [facility] Platelets (Bld) [#/Vol] 462.0 E9/L Normal 150.0 - 500.0 E9/L [facility] RBC (Bld) [#/Vol] 3.3 E12/L Low 4.3 - 5.9 E12/L [facility] WBC corrected for nucl RBC Auto (Bld) [#/Vol] 7.9 E9/L Normal 4.0 - 11.0 E9/L [facility] CHEMISTRYOrdered By: SYSTEM SYSTEM on 06-30-2021 Creatinine [Mass/Vol] 0.9 mg/dL Normal 0.5 - 1.3 mg/dL [facility] Remisol GFR/1.73 sq M.predicted among blacks MDRD (S/P/Bld) [Vol rate/Area] mL/min/1.73 m2 Normal >=59mL/min/ 1.73 m2 [facility] Chem S GFR/1.73 sq M.predicted among non-blacks MDRD (S/P/Bld) [Vol rate/Area] mL/min/1.73 m2 Normal >=59mL/min/ 1.73 m2 [facility] Chem S HEMATOLOGYOrdered By: SYSTEM SYSTEM on 06-29-2021 Basophils/100 WBC (Bld) 0.4 % Normal 0.0 - 2.0 % [facility] Basophils/Leukocytes Auto (Bld) [Pure # fraction] 0.0 E9/L Normal 0.0 - 0.2 E9/L [facility] Eosinophils/100 WBC (Bld) 7.1 % Normal 0.0 - 8.0 % [facility] Eosinophils/Leukocytes Auto (Bld) [Pure # fraction] 0.7 E9/L High 0.0 - 0.5 E9/L [facility] Lymphocytes/100 WBC (Bld) 14.1 % Normal 14.0 - 50.0 % [facility] Lymphocytes/Leukocytes Auto (Bld) [Pure # fraction] 1.3 E9/L Normal 1.0 - 4.0 E9/L [facility] Monocytes/100 WBC (Bld) 9.6 % Normal 4.0 - 14.0 % [facility] Monocytes/Leukocytes Auto (Bld) [Pure # fraction] 0.9 E9/L Normal 0.2 - 1.0 E9/L [facility] Neutrophils/100 WBC (Bld) 68.8 % Normal 36.0 - 75.0 % [facility] Neutrophils/Leukocytes Auto (Bld) [Pure # fraction] 6.5 E9/L Normal 2.0 - 7.5 E9/L [facility] HEMATOLOGYOrdered By: Fabian Naranjo on 06-29-2021 Erythrocyte distribution width (RBC) [Ratio] 13.7 % Normal 10.9 - 14.2 % [facility] Hematocrit (Bld) [Volume fraction] 27.3 % Low 37.7 - 49.0 % [facility] Hemoglobin (Bld) [Mass/Vol] 9.4 g/dL Low 13.5 - 17.5 gm/dL [facility] MCH (RBC) [Entitic mass] 33.6 pg Normal 27.0 - 34.0 pg [facility] MCHC (RBC) [Mass/Vol] 34.5 g/dL Normal 31.4 - 36.0 gm/dL [facility] MCV (RBC) [Entitic vol] 97.3 fL Normal 80.0 - 100.0 fL [facility] Platelet mean volume (Bld) [Entitic vol] 7.6 fL Normal 6.4 - 10.8 fL [facility] Platelets (Bld) [#/Vol] 290.0 E9/L Normal 150.0 - 500.0 E9/L [facility] RBC (Bld) [#/Vol] 2.8 E12/L Low 4.3 - 5.9 E12/L [facility] WBC corrected for nucl RBC Auto (Bld) [#/Vol] 9.5 E9/L Normal 4.0 - 11.0 E9/L [facility] Comment on above: Result Comment: Slid e reviewed by cmk. CHEMISTRYOrdered By: SYSTEM SYSTEM on 06-28-2021 Anion gap [Moles/Vol] 14 mmol/L Normal 6 - 16 mEq/L [facility] Remisol Calcium [Mass/Vol] 8.2 mg/dL Low 8.9 - 11. 1 mg/dL [facility] Chloride [Moles/Vol] 104 mmol/L Normal 101 - 1 11 mmol/L [facility]isol CO2 [Moles/Vol] 23 mmol/L Normal 21 - 31 mmol/L [facility]isol Creatinine [Mass/Vol] 0.8 mg/dL Normal 0.5 - 1.3 mg/dL [facility] [place]isol GFR/1.73 sq M.predicted among blacks MDRD (S/P/Bld) [Vol rate/Area] mL/min/1.73 m2 Normal >=59mL/min/ 1.73 m2 [facility] Chem S GFR/1.73 sq M.predicted among non-blacks MDRD (S/P/Bld) [Vol rate/Area] mL/min/1.73 m2 Normal >=59mL/min/ 1.73 m2 [facility] Chem S Glucose [Mass/Vol] 106 mg/dL Normal 55 - 199 mg/dL [facility] Potassium [Moles/Vol] 4.6 mmol/L Normal 3.5 - 5.3 mmol/L [facility] Sodium [Moles/Vol] 136 mmol/L Normal 135 - 145 mmol/L [facility] Urea nitrogen [Mass/Vol] 13 mg/dL Normal 5 - 21 mg/dL [facility] Urea nitrogen/Creatinine [Mass ratio] 16 mg/mg Normal 10 - 20 [facility] HEMATOLOGYOrdered By: SYSTEM SYSTEM on 06-28-2021 Basophils/100 WBC (Bld) 0.2 % Normal 0.0 - 2.0 % [facility] HemeAutoSS Basophils/Leukocytes Auto (Bld) [Pure # fraction] 0.0 E9/L Normal 0.0 - 0.2 E9/L [facility] HemeAutoSS Eosinophils/100 WBC (Bld) 3.9 % Normal 0.0 - 8.0 % [facility] HemeAutoSS Eosinophils/Leukocytes Auto (Bld) [Pure # fraction] 0.6 E9/L High 0.0 - 0.5 E9/L [facility]eAutoSS Lymphocytes/100 WBC (Bld) 11.7 % Low 14.0 - 50.0 % [facility] HemeAutoSS Lymphocytes/Leukocytes Auto (Bld) [Pure # fraction] 1.8 E9/L Normal 1.0 - 4.0 E9/L [facility] HemeAutoSS Monocytes/100 WBC (Bld) 9.3 % Normal 4.0 - 14.0 % [facility] HemeAutoSS Monocytes/Leukocytes Auto (Bld) [Pure # fraction] 1.4 E9/L High 0.2 - 1.0 E9/L [facility]eAutoSS Neutrophils/100 WBC (Bld) 74.9 % Normal 36.0 - 75.0 % [facility] HemeAutoSS Neutrophils/Leukocytes Auto (Bld) [Pure # fraction] 11.6 E9/L High 2.0 - 7.5 E9/L [facility]eAutoSS HEMATOLOGYOrdered By: Koko Booth on 06-28-2021 Erythrocyte distribution width (RBC) [Ratio] 13.6 % Normal 10.9 - 14.2 % [facility]eAutoSS Hematocrit (Bld) [Volume fraction] 27.9 % Low 37.7 - 49.0 % [facility]eAutoSS Hemoglobin (Bld) [Mass/Vol] 9.3 g/dL Low 13.5 - 17.5 gm/dL [facility] MCH (RBC) [Entitic mass] 32.0 pg Normal 27.0 - 34.0 pg [facility] MCHC (RBC) [Mass/Vol] 33.5 g/dL Normal 31.4 - 36.0 gm/dL [facility]eAutoSS MCV (RBC) [Entitic vol] 95.3 fL Normal 80.0 - 100.0 fL [facility]eAuto[facility] Platelet mean volume (Bld) [Entitic vol] 6.7 fL Normal 6.4 - 10.8 fL [facility]eAutoSS Platelets (Bld) [#/Vol] 340.0 E9/L Normal 150.0 - 500.0 E9/L [facility] RBC (Bld) [#/Vol] 2.9 E12/L Low 4.3 - 5.9 E12/L [facility] WBC corrected for nucl RBC Auto (Bld) [#/Vol] 15.5 E9/L High 4.0 - 11.0 E9/L [facility] Comment on above: Result Comment: Slid e reviewed by FIORDALIZA. PENICILLIN:SUSC:PT:ISOLATE:O RDQN:MICon 06-27-2021 Penicillin CARMEN [Susc] 3+ Staphylococcus aureus [facility] Penicillin CARMEN [Susc]on 06-04 GS 1+ White Blood Cells 2+ Gram Positive Cocci [facility] Staphylococcus aureus Staphylococcus aureus [facility] CHEMISTRYOrdered By: SYSTEM SYSTEM on 04-24-2022 Anion gap [Moles/Vol] 16 mmol/L Normal 6 - 16 mEq/L [facility] Calcium [Mass/Vol] 8.2 mg/dL Low 8.9 - 11. 1 mg/dL [facility] Chloride [Moles/Vol] 97 mmol/L Low 101 - 1 11 mmol/L [facility] CO2 [Moles/Vol] 29 mmol/L Normal 21 - 31 mmol/L [facility] Glucose [Mass/Vol] 127 mg/dL Normal 55 - 199 mg/dL [facility] Magnesium [Mass/Vol] 1.6 mg/dL Normal 1.3 - 2 .4 mg/dL [facility] Phosphate [Mass/Vol] 2.3 mg/dL Normal 1.9 - 4 .6 mg/dL [facility] Potassium [Moles/Vol] 3.5 mmol/L Normal 3.5 - 5.3 mmol/L [facility] Sodium [Moles/Vol] 138 mmol/L Normal 135 - 145 mmol/L [facility] Urea nitrogen [Mass/Vol] 10 mg/dL Normal 5 - 21 mg/dL [facility] Urea nitrogen/Creatinine [Mass ratio] 9 mg/mg Low 10 - 20 [facility] MICRO OTHER TESTSOrdered By: Blanca Toney on 06-24-2021 Rapid COV Int NEG Ctl Pass (06/24/21 1:11 PM) Normal [facility] Man Sero Rapid COV Int POS Ctl Pass (06/24/21 1:11 PM) Normal [facility] [place] Sero SARS-CoV+SARS-CoV-2 (COVID-19) Ag IA.rapid Ql (Resp) Not Detected (06/24/21 1:11 PM) Normal Not Detected [facility] [place] Sero CHEMISTRYOrdered By: Lab MYA User on 06-22-2021 Glucose [Mass/Vol] 98 mg/dL Normal 55 - 99 mg/dL [facility] POC Subsection Comment on above: Result Comment: Moody vogel RN/ POC Device SN [id number] Invalid Interpretation Code [facility] POC Subsection POC User ID [id number] Invalid Interpretation Code FT POC Subsection POC Username Paty Wilson Invalid Interpretation Code FT POC Subsection CHEMISTRYOrdered By: Lab MYA User on 06-20-2021 Glucose [Mass/Vol] 103 mg/dL High 55 - 99 mg/dL [facility] POC Subsection Comment on above: Result Comment: Moody vogel RN/MD POC Device SN [id number] Invalid Interpretation Code FT POC Subsection POC User ID [id number] Invalid Interpretation Code [facility] POC Subsection POC Username VALERIANO CHURCH Invalid Interpretation Code [facility] POC Subsection MICRO OTHER TESTSOrdered By: Arnol Thapa on 06-20-2021 Rapid COV Int NEG Ctl Pass (06/20/21 11:22 AM) Normal [facility] Man Sero Rapid COV Int POS Ctl Pass (06/20/21 11:22 AM) Normal [facility] Man Sero SARS-CoV+SARS-CoV-2 (COVID-19) Ag IA.rapid Ql (Resp) Not Detected (06/20/21 11:22 AM) Normal Not Detected [facility] Man Sero CHEMISTRYOrdered By: Sandip ROP User on 06-19-2021 Glucose [Mass/Vol] 95 mg/dL Normal 55 - 99 mg/dL [facility] POC Subsection POC Device SN [id number] Invalid Interpretation Code [facility] POC Subsection POC User ID [id number] Invalid Interpretation Code [facility] POC Subsection POC Username RYAN CLEARY Invalid Interpretation Code [facility] POC Subsection CEFAZOLIN:SUSC:PT:ISOLATE:OR DQN:MICon 06-14-2021 ceFAZolin CARMEN [Susc] 5,000 cfu/ml Staphylococcus epidermidis [facility] URINALYSISOrdered By: Koko Booth on 06-14-2021 Bacteria LM Ql (Urine sed) Trace /HPF Normal Trace/HPF [facility] UA Auto SS Bilirubin Ql (U) 2+ *ABN* (06/14/21 8:53 AM) Invalid Interpretation Code Negative [facility] UA Auto SS Clarity (U) Slightly Cloudy *ABN* (06/14/21 8:53 AM) Invalid Interpretation Code Clear [facility] UA Auto SS Color (U) Dark Yellow *ABN* (06/14/21 8:53 AM) Invalid Interpretation Code Yellow [facility] UA Auto SS Epithelial cells.squamous LM.HPF (Urine sed) [#/Area] 0-2 /HPF Normal 0-2/HPF [facility] UA Aut o SS Glucose Test strip (U) [Mass/Vol] Negative (06/14/21 8:53 AM) Normal Negative [facility] UA Auto SS Hemoglobin Ql (U) 2+ *ABN* (06/14/21 8:53 AM) Invalid Interpretation Code Negative [facility] UA Auto SS Ketones (U) [Mass/Vol] 3+ *ABN* (06/14/21 8:53 AM) Invalid Interpretation Code Negative [facility] UA Auto SS [place].plasma/[place] .RBC (Bld) [Mass ratio] 4-20 /HPF Normal 0-3/HPF [facility] UA Auto SS Mucus Ql (Urine sed) Trace (06/14/21 8:53 AM) Normal [facility] UA Auto SS Nitrite Ql (U) Negative (06/14/21 8:53 AM) Normal Negative [facility] UA Auto SS pH (U) 7.0 *NA* (06/14/21 8:53 AM) Invalid Interpretation Code 5.0 - 9.0 [facility] UA Auto SS Protein (U) [Mass/Vol] 1+ *ABN* (06/14/21 8:53 AM) Invalid Interpretation Code Negative [facility] UA Auto SS Specific gravity (U) [Rel density] 1.020 *NA* (06/14/21 8:53 AM) Invalid Interpretation Code 1.005 - 1.030 [facility] UA Auto SS UA Spec Desc Will (06/14/21 8:53 AM) Normal [facility] UA Auto SS Urobilinogen Qn (U) [id number] {Kole'U}/dL Invalid Interpretation Code 0.0 - 1.0 EU/dL [facility] UA Auto SS WBC Auto Ql (U) Trace *ABN* (06/14/21 8:53 AM) Invalid Interpretation Code Negative [facility] UA Auto SS WBC LM.HPF (Urine sed) [#/Area] /[HPF] Invalid Interpretation Code 0-5/HPF [facility] UA Auto SS ceFAZolin CARMEN [Susc]on 06-14 Staphylococcus epidermidis Staphylococcus epidermidis [facility] BLOOD BANKOrdered By: Jaquelin Hooker on 06-13-2021 ABO/Rh Interp Positive Invalid Interpretation Code [facility] BB Subsection ABSC Gel Interp Negative (06/13/21 12:10 PM) Normal [facility] BB Subsection BLOOD BANKOrdered By: Jaquelin Hooker on 06-12-2021 ABO/Rh Retype Interp Positive Invalid Interpretation Code [facility] BB Subsection COAGULATIONOrdered By: David Forrester on 06-12-2021 aPTT Coag (PPP) [Time] 34.0 s Normal 25.1 - 36.5 second(s) [facility] Auto Coag INR Coag (PPP) [Relative time] 1.3 {INR} Invalid Interpretation Code [facility] Auto Coag PT Coag (PPP) [Time] 15.3 s High 10.2 - 12.9 second(s) [facility] Auto Coag CBC AUTO DIFFon 06-11-2021 BASO # 0.1 103/ul Normal 0.0-0.1 [facility] Comment on above: Performed By: #### C BC #### [facility] [address] [place] [address] Dr. Randi Black Basophils/100 WBC (Bld) 0.4 % Normal 0.2-2.0 [facility] Comment on above: Performed By: #### C BC #### [facility] [address] [place] [address] Dr. Randi Black EO # 0.0 103/ul Normal 0.0-0.7 [facility] Comment on above: Performed By: #### C BC #### [facility] [address] [place] [address] Dr. Randi Black Eosinophils/100 WBC (Bld) 0.1 % Critically low 0.9-7.0 [facility] Comment on above: Performed By: #### C BC #### [facility] [address] [place] [address] Dr. Randi Black Erythrocyte distribution width (RBC) [Ratio] 12.7 % Normal 11.0-15.0 [facility] Comment on above: Performed By: #### C BC #### [facility] [address] [place] [address] Dr. Randi Black Hematocrit (Bld) [Volume fraction] 47.5 % Normal 42.0-54.0 [facility] Comment on above: Performed By: #### C BC #### [facility] [address] [place] [address] Dr. Randi Black Hemoglobin (Bld) [Mass/Vol] 15.5 g/dL Normal 14.0-18.0 [facility] Comment on above: Performed By: #### C BC #### [facility] [address] [address] [address] Randi Black IG # 0.05 10e3/ul Critically high 0.00-0.[address] [facility] Comment on above: Performed By: #### C BC #### [facility] [address] [address] [address] Randi Black IG % 0.4 % Normal 0.0-0.5 [facility] Comment on above: Performed By: #### C BC #### [facility] [address] [address] [address] Randi Black LYMPH # 0.9 103/ul Critically low 1.2-3.8 [facility] Comment on above: Performed By: #### C BC #### [facility] [address] [place] [address] Dr. Randi Black Lymphocytes/100 WBC (Bld) 6.4 % Critically low 20.5-60.0 [facility] Comment on above: Performed By: #### C BC #### [facility] [address] [place] [address] Dr. Randi Black MANUAL DIFF REQ NO Normal [facility] Comment on above: Performed By: #### C BC #### [facility] [address] [place] [address] Dr. Randi Black MCH (RBC) [Entitic mass] 32.2 pg Normal 25.9-34.0 [facility] Comment on above: Performed By: #### C BC #### [facility] [address] [place] [address] Dr. Randi Black MCHC (RBC) [Mass/Vol] 32.6 g/dL Normal 29.9-35.2 [facility] Comment on above: Performed By: #### C BC #### [facility] [address] [place] [address] Dr. Randi Black MCV (RBC) [Entitic vol] 98.5 fL Critically high 80.0-94.0 [facility] Comment on above: Performed By: #### C BC #### [facility] [address] [place] [address] Dr. Randi Black MONO # 0.6 103/ul Normal 0.3-0.8 [facility] Comment on above: Performed By: #### C BC #### [facility] [address] [place] [address] Dr. Randi Black Monocytes/100 WBC (Bld) 4.5 % Normal 1.7-12.0 [facility] Comment on above: Performed By: #### C BC #### [facility] [address] [place] [address] Dr. Randi Black NEUT # 11.9 103/ul Critically high 1.4-6.5 [facility] Comment on above: Performed By: #### C BC #### [facility] [address] [place] [address] Dr. Randi Black Neutrophils/100 WBC (Bld) 88.2 % Critically high 43.0-75.0 [facility] Comment on above: Performed By: #### C BC #### [facility] [address] [place] [address] Dr. Randi Black Platelet mean volume (Bld) [Entitic vol] 8.7 fL Critically low 9.5-13.5 [facility] Comment on above: Performed By: #### C BC #### [facility] [address] [place] [address] Dr. Randi Black PLT 245 103/ul Normal 150-450 [facility] Comment on above: Performed By: #### C BC #### [facility] [address] [place] [address] Dr. Randi Black RBC 4.82 106/ul Normal 4.70-6.10 [facility] Comment on above: Performed By: #### C BC #### [facility] [address] [place], [place] [id number] Dr. Randi Black WBC 13.5 103/ul Critically high 4.0-11.0 [facility] Comment on above: Performed By: #### C BC #### [facility] [address] [place] [address] Dr. Randi Black CHEMISTRYOrdered By: SYSTEM SYSTEM on 06-11-2021 Albumin [Mass/Vol] 4.6 g/dL Normal 3.3 - 5.0 gm/dL [facility] Albumin/Globulin [Mass ratio] 1.1 {ratio} Normal 1.1 - 2.2 [facility] ALP [Catalytic activity/Vol] 139 [iU]/d High 21 - 98 Int._Unit/L [facility] ALT No additional P-5'-P [Catalytic activity/Vol] 19 [iU]/d Normal 6 - 46 Int._Unit/L [facility] AST [Catalytic activity/Vol] 20 [iU]/d Normal 5 - 43 Int._Unit/L [facility] Bilirubin [Mass/Vol] 0.8 mg/dL Normal 0.0 - 1 .1 mg/dL [facility] Bilirubin.direct [Mass/Vol] 0.2 mg/dL Normal 0.1 - 0.4 mg/dL [facility] Bilirubin.indirect [Mass or moles/Vol] 0.6 mg/dL Normal 0.1 - 0.9 mg/dL [facility] Globulin (S) [Mass/Vol] 4.3 g/dL High 1.4 - 4.0 gm/dL [facility] Lactate [Mass/Vol] 1.3 mmol/L Normal 0.5 - 2.2 mmol/L [facility] Lipase [Catalytic activity/Vol] 46 U/L Normal 13 - 58 unit/L [facility] Protein [Mass/Vol] 8.9 g/dL High 6.0 - 7.8 gm/dL [facility] Remisol CT ABD/PELVIS WO CONon 06-11 CT ABD/PELVIS WO CON EXAMINATION: CT ABD/PELVIS WO CON, 06/11/2021 12:35 PM EDT HISTORY: UNSPECIFIED ABDOMINAL PAIN COMPARISON: CT 10/02/2020 TECHNIQUE: CT scan of the abdomen and pelvis was performed without IV contrast. CT dose reduction technique was used, including Automated Exposure Control. FINDINGS: Lung bases are clear. There is some motion artifact on exam. No pleural effusion. No biliary obstruction or gallstones. No pancreatic inflammation or adrenal enlargement. A chronic calcified subcapsular fluid collection left kidney is unchanged. No evidence of obstructive uropathy. Moderate gastric distention and upper mid abdominal small bowel distention which is suspicious for developing small bowel obstruction which most likely occurs at the site of a left of midline ventral abdominal wall hernia containing both mesenteric fat and small bowel. No evidence of bowel perforation. No free air, ascites or bowel wall pneumatosis. No specific inflammatory process. Moderate atherosclerosis of aorta but no aneurysm. No bladder calcifications. No acute osseous findings. Degenerative changes lumbar spine. IMPRESSION: Findings which are concerning for developing small bowel obstruction at the site of a left of midline ventral abdominal wall hernia. Electronically authenticated by: MOR FAULKNER Date: 2021-06-11 13:23 Normal [facility] LACTATE/LACTIC ACIDon 2021 Lactate [Moles/Vol] 2.8 mmol/L Critically high 0.7-2.0 [facility] Comment on above: Performed By: #### L ACT #### [facility] [address] [place] [address] Dr. Randi Black LIPASEon 06-11-2021 Lipase [Catalytic activity/Vol] 184.0 U/L Normal 23.0-300.0 [facility] Comment on above: Performed By: #### L IPA #### [facility] [address] [place] [address] Dr. Randi Black No Panel Informationon 06-11 Blood Culture Charcoal No growth at 7 days. [facility] Blood Culture Charcoal No growth at 7 days. [facility] PROF 14(COMP METB)on 022 Albumin [Mass/Vol] 4.1 g/dL Normal 3.4-5.0 [facility] Comment on above: Performed By: #### C MP #### [facility] [address] [place] [address] Dr. Randi Black Albumin/Globulin [Mass ratio] 0.9 {ratio} Normal [facility] Comment on above: Performed By: #### C MP #### [facility] [address] [place] [address] Dr. Randi Black ALP [Catalytic activity/Vol] 164 U/L Critically high 46-116 [facility] Comment on above: Performed By: #### C MP #### [facility] [address] [address] [address] Randi Black ALT [Catalytic activity/Vol] 22 U/L Normal 16-63 [facility] Comment on above: Performed By: #### C MP #### [facility] [address] [place] [address] Dr. Randi Black Anion gap [Moles/Vol] 15.1 mmol/L Normal [facility] Comment on above: Performed By: #### C MP #### [facility] [address] [address] [address] Randi Black AST [Catalytic activity/Vol] 14 U/L Critically low 15-37 [facility] Comment on above: Performed By: #### C MP #### [facility] [address] [address] [address] Randi Black Bilirubin [Mass/Vol] 0.3 mg/dL Normal 0.2-1.3 [facility] Comment on above: Performed By: #### C MP #### [facility] [address] [place] [address] Dr. Randi Black Calcium [Mass/Vol] 9.3 mg/dL Normal 8.5-10.1 [facility] Comment on above: Performed By: #### C MP #### [facility] [address] [place] [address] Dr. Randi Black Chloride [Moles/Vol] 100 mmol/L Normal 98-107 [facility] Comment on above: Performed By: #### C MP #### [facility] [address] [address] [address] Randi Black CO2 [Moles/Vol] 26.6 mmol/L Normal 22.0-30.0 [facility] Comment on above: Performed By: #### C MP #### [facility] [address] [place] [address] Dr. Randi Black Creatinine [Mass/Vol] 1.31 mg/dL Critically high 0.66-1.25 [facility] Comment on above: Performed By: #### C MP #### [facility] [address] [place] [address] Dr. Randi Black EGFR-AF ROMANIAN >60 Normal >=60 [facility] Comment on above: Performed By: #### C MP #### [facility] [address] [address] [address] Randi Black EGFR-NON AF ROMANIAN 55 mL/min/1.73m2 Critically low >=60 [facility] Comment on above: Performed By: #### C MP #### [facility] [address] [address] [address] Randi Black Globulin (S) [Mass/Vol] 4.5 g/dL Normal [facility] Comment on above: Performed By: #### C MP #### [facility] [address] [address] [address] Randi Black Glucose [Mass/Vol] 112 mg/dL Critically high 74-106 [facility] Comment on above: Performed By: #### C MP #### [facility] [address] [address] [address] Randi Black Potassium [Moles/Vol] 3.7 mmol/L Normal 3.4-5.0 [facility] Comment on above: Performed By: #### C MP #### [facility] [address] [address] [address] Randi Black Protein [Mass/Vol] 8.6 g/dL Critically high 6.1-8.2 [facility] Comment on above: Performed By: #### C MP #### [facility] [address] [address] [address] Randi Black Sodium [Moles/Vol] 138 mmol/L Normal 137-145 [facility] Comment on above: Performed By: #### C MP #### [facility] [address] [address] [address] Randi Black Urea nitrogen [Mass/Vol] 26.0 mg/dL Critically high 7.0-18.0 [facility] Comment on above: Performed By: #### C MP #### [facility] [address] [address] [address] Randi Black Urea nitrogen/Creatinine [Mass ratio] 19.8 mg/mg Normal [facility] Comment on above: Performed By: #### C #### [facility] [address] [address] [address] Randi Black XR CHEST 1 Von 06-11-2021 XR CHEST 1 V EXAM: XR CHEST 1 V HISTORY: Neoplastic disease.NG tube placement. COMPARISON: Comparison made to chest x-ray dated 06/11/2021. TECHNIQUE: Single AP portable chest x-ray. FINDINGS: There has been interval placement of a nasogastric tube with tip below the level of the diaphragm at least to the stomach. Otherwise, no significant interval change since recent prior examination. IMPRESSION: 1. Interval placement of nasogastric tube with tip at least in stomach. Its tip is not included in the [id number], but it is located below the left hemidiaphragm. Electronically authenticated by: IRWIN QUICK Date: 2021-06-11 15:00 Normal [facility] XR CHEST 1 V EXAM: XR CHEST 1 V HISTORY: SHORTNESS OF BREATH COMPARISON: 10/02/2020 TECHNIQUE: Portable AP chest 12:32 PM FINDINGS: Lungs are clear and heart size is normal. No pleural effusion or pneumothorax. IMPRESSION: No acute findings Electronically authenticated by: MOR FAULKNER Date: 2021-06-11 13:15 Normal [facility] XR ABD FLAT_UPon 02-28-2021 XR ABD FLAT_UP EXAMINATION: XR ABD FLAT_UP HISTORY: Abdominal colic COMPARISON: 10/02/2020 FINDINGS: BOWEL GAS PATTERN: Moderate dilation of small bowel loops with extensive air-fluid levels. Small amount of air is identified in the left colon and rectum. FREE AIR: None. CALCIFICATIONS: None significant. BONES: No fracture or visible bone lesion. Moderate degenerative changes of the spine OTHER: Electronic device projects over the left lateral chest. Call results initiated through operations IMPRESSION: Bowel dilation and air-fluid levels suggesting a bowel obstruction. Electronically authenticated by: DAVID TSANG Date: 2021-02-28 14:42 Normal [facility] Basic Metabolic PanelOrdered By: Carson Matamoros on 08-18-2020 Anion gap [Moles/Vol] 7 mmol/L Low 9 - 17 mmol/L [employer] Phone: Calcium [Mass/Vol] 9.5 mg/dL 8.6 - 10. 4 mg/dL [employer] Phone: Chloride [Moles/Vol] 103 mmol/L 98 - 10 7 mmol/L [employer] Work Phone: CO2 [Moles/Vol] 28 mmol/L 20 - 31 mmol/L [employer] Phone: Creatinine [Mass/Vol] 1.17 mg/dL 0.70 - 1.20 mg/dL [employer] Phone: GFR >60 >60 mL/min [employer] Phone: GFR Non- >60 >60 mL/min [employer] Phone: Glucose [Mass/Vol] 80 mg/dL 70 - 99 mg/dL [employer] Phone: Potassium [Moles/Vol] 4.9 mmol/L 3.7 - 5.3 mmol/L [employer] Phone: Sodium [Moles/Vol] 138 mmol/L 135 - 144 mmol/L [employer] Phone: Urea nitrogen (BldV) [Mass/Vol] 21 mg/dL 8 - 23 mg/dL [employer] Phone: Urea nitrogen/Creatinine (Bld) [Mass ratio] 18 [employer] Work Phone: CBC Auto DifferentialOrdered By: Carson Matamoros on 08-18-2020 [employer]os # 0.23 [facility] Work Phone: Absolute Immature Granulocyte 0.03 [employer] Work Phone: Absolute Lymph # 1.63 [employer] Work Phone: Absolute [place] # 0.52 [employer] Work Phone: Basophils (Bld) [#/Vol] 0.05 10*3/uL [employer] Work Phone: Basophils/100 WBC (Bld) 1 % 0 - 2 % [employer] Phone: Differential Type NOT REPORTED [employer] Phone: Eosinophils/100 WBC (Bld) 3 % 1 - 4 % [employer] Phone: Hematocrit (Bld) [Volume fraction] 40.7 % 40.7 - 50.3 % [employer] Phone: Hemoglobin.gastrointes tinal spec 1 Ql (Stl) 12.9 g/dL Low 13.0 - 17.0 g/dL [employer] Phone: Immature granulocytes/100 WBC (Bld) 0 % 0 [employer] Phone: Interpretation and review of laboratory results Abnormal [employer] Phone: Lymphocytes/100 WBC (Bld) 21 % Low 24 - 43 % [employer] Phone: MCH (RBC) [Entitic mass] 32.0 pg 25.2 - 33.5 pg [employer] Phone: MCHC (RBC) [Mass/Vol] 31.7 g/dL 28.4 - 34.8 g/dL [employer] Phone: MCV (RBC) [Entitic vol] 101.0 fL 82.6 - 102.9 fL [employer] Phone: Monocytes/100 WBC (Bld) 7 % 3 - 12 % [employer] Phone: NRBC Automated 0.0 0.0 per 100 WBC [employer] Phone: Platelet distribution width (Bld) [Ratio] 12.4 % 11.8 - 14.4 % [employer] Phone: Platelet Estimate NOT REPORTED [employer] Phone: Platelet mean volume (Bld) [Entitic vol] 9.1 fL 8.1 - 13.5 fL [employer] Work Phone: Platelets (Bld) [#/Vol] 225 10*3/uL [facility] Phone: RBC (Bld) [#/Vol] 4.03 10*6/uL Low 4.21 - 5.7 7 m/uL [facility] Phone: RBC (Bld) [#/Vol] NOT REPORTED [facility] Phone: Segmented neutrophils/100 WBC (Bld) 68 % High 36 - 65 % [facility] Phone: Segs Absolute 5.33 [employer] Phone: WBC (Bld) [#/Vol] 7.8 10*3/uL [facility] Phone: WBC (Bld) [#/Vol] NOT REPORTED [facility] Phone: [facility] Phone: Hepatic Function PanelOrdere d By: Carson Matamoros on 08-18-2020 Albumin [Mass/Vol] 3.9 g/dL 3.5 - 5.2 g/dL [facility] Phone: Albumin/Globulin [Mass ratio] 1.2 {ratio} [facility] Phone: ALP (Bld) [Catalytic activity/Vol] 141 U/L High 40 - 129 U/L [facility] Phone: ALT [Catalytic activity/Vol] 18 U/L 5 - 41 U/L [facility] Phone: AST [Catalytic activity/Vol] 16 U/L <40 [facility] Phone: Bilirubin [Mass/Vol] 0.24 mg/dL Low 0.3 - 1 .2 mg/dL [facility] Phone: Bilirubin, Indirect CANNOT BE CALCULATED 0.00 - 1.00 mg/dL [facility] Phone: Bilirubin.indirect [Mass/Vol] mg/dL <0.31 mg/dL [facility] Phone: Free PSA/Total PSA [Mass fraction] 7.2 g/dL 6.4 - 8.3 g/dL [facility] Phone: Globulin NOT REPORTED 1.5 - 3.8 g/dL [facility] Phone: Laboratory - Chemistry and C hemistry - challengeOrdered By: Carson Matamoros on 08-18-2020 GFR/1.73 sq M.predicted MDRD (S/P/Bld) [Vol rate/Area] [facility] Phone: Comment on above: Average GFR for 60-6 9 years old: 85 mL/min/1.73sq m Chronic Kidney Disease: <60 mL/min/1.73sq m Kidney failure: <15 mL/min/1.73sq m eGFR calculated using average adult body mass. Additional eGFR calculator available at: http://www.[employer]/multiple_crcl_2012.htm Stage 1: Some kidney damage normal GFR Stage 2: Mild kidney damage GFR 60-89 Stage 3: Moderate kidney damage GFR 30-59 Stage 4: Severe kidney damage GFR 15-29 Stage 5: Severe kidney damage GFR <15 ESRD - chronic treatment by dialysis or transplant Lipid PanelOrdered By: Carson Matamoros on 08-18-2020 Cholesterol [Mass/Vol] 155 mg/dL <200 [facility] Phone: Comment on above: Cholesterol Guidelines: <200 Desirable 200-240 Borderline >240 Undesirable Cholesterol in HDL [Mass/Vol] 55 mg/dL >40 [facility] Comment on above: HDL Guidelines: <40 Undesirable 40-59 Borderline >59 Desirable Cholesterol in LDL [Mass/Vol] 91 mg/dL 0 - 130 mg/dL [facility] Phone: Comment on above: LDL Guidelines: <100 Desirable 100-129 Near to/above Desirable 130-159 Borderline >159 Undesirable Direct (measured) LDL and calculated LDL are not interchangeable tests. Cholesterol in VLDL [Mass/Vol] NOT REPORTED 1 - 30 mg/dL [facility] Phone: Cholesterol.total/Chol esterol in HDL [Mass ratio] 2.8 {ratio} <5 [facility] Phone: Triglyceride [Mass/Vol] 46 mg/dL <150 [facility] Phone: Comment on above: Triglyceride Guidelines: <150 Desirable 150-199 Borderline 200-499 High >499 Very high Based on AHA Guidelines for fasting triglyceride, December 2011. [facility] Phone: No Panel InformationOrdered By: Carson Matamoros on 08-18-2020 Interpretation and review of laboratory results Abnormal [facility] Phone: [facility] Phone: PSA screeningOrdered By: Rochelle Matamoros on 08-18-2020 [facility] Phone: Basic Metabolic Panelon 10-2 Anion gap [Moles/Vol] 8 mmol/L Low 9 - 17 mmol/L [place] Bun/Cre Ratio 17 [place] Calcium [Mass/Vol] 9.9 mg/dL 8.6 - 10. 4 mg/dL [place] Chloride [Moles/Vol] 101 mmol/L 98 - 10 7 mmol/L [place] CO2 [Moles/Vol] 30 mmol/L 20 - 31 mmol/L [place] Creatinine [Mass/Vol] 1 mg/dL 0.7 - 1.2 mg/dL [place] GFR >60 >60 mL/min [facility] [employer] GFR Non- >60 >60 mL/min [place] Glucose [Mass/Vol] 88 mg/dL 70 - 99 mg/dL [place] Potassium [Moles/Vol] 4.4 mmol/L 3.7 - 5.3 mmol/L [place] Sodium [Moles/Vol] 139 mmol/L 135 - 144 mmol/L [place] Urea nitrogen [Mass/Vol] 17 mg/dL 8 - 23 mg/dL [place] CBC Auto Differentialon 10-2 8-2020 Basophils (Bld) [#/Vol] 0.06 10*3/uL [place] Basophils/100 WBC (Bld) 1 % 0 - 2 % [place] Differential Type NOT REPORTED [place] Eosinophils (Bld) [#/Vol] 0.52 10*3/uL [place] Eosinophils/100 WBC (Bld) 6 % High 1 - 4 % [place] Erythrocyte distribution width (RBC) [Ratio] 12.7 % 11.8 - 14.4 % [place] Hematocrit (Bld) [Volume fraction] 41.0 % 40.7 - 50.3 % [place] Hemoglobin (Bld) [Mass/Vol] 12.7 g/dL Low 13 - 17 g/dL [place] Immature granulocytes (Bld) [#/Vol] 0 % 0 [place] Immature granulocytes (Bld) [#/Vol] 10*3/uL [place] Interpretation and review of laboratory results Abnormal [place] Lymphocytes (Bld) [#/Vol] 2.08 10*3/uL [place] Lymphocytes/100 WBC (Bld) 25 % 24 - 43 % [place] MCH (RBC) [Entitic mass] 31.6 pg 25.2 - 33.5 pg [place] MCHC (RBC) [Mass/Vol] 31.0 g/dL 28.4 - 34.8 g/dL [place] MCV (RBC) [Entitic vol] 102.0 fL 82.6 - 102.9 fL [place] Monocytes (Bld) [#/Vol] 0.55 10*3/uL [place] Monocytes/100 WBC (Bld) 7 % 3 - 12 % [place] Platelet mean volume (Bld) [Entitic vol] 9.0 fL 8.1 - 13.5 fL [place] Platelets (Bld) [#/Vol] NOT REPORTED [place] Platelets (Bld) [#/Vol] 230 10*3/uL [place] RBC (Bld) [#/Vol] 4.02 10*6/uL Low 4.21 - 5.7 7 m/uL [place] RBC morphology finding Nom (Bld) NOT REPORTED [place] Segmented neutrophils/100 WBC (Bld) 61 % 36 - 65 % [place] Segs Absolute 5.16 [place] WBC (Bld) [#/Vol] 8.4 10*3/uL [place] WBC (Bld) [#/Vol] 0.0 10*3/uL 0.0 per 10 0 WBC [place] WBC Morphology NOT REPORTED [place] Hepatic Function Panelon Albumin [Mass/Vol] 4.3 g/dL 3.5 - 5.2 g/dL [place] Albumin/Globulin [Mass ratio] 1.3 {ratio} [place] ALP [Catalytic activity/Vol] 119 U/L 40 - 129 U/L [place] ALT [Catalytic activity/Vol] 11 U/L 5 - 41 U/L [place] AST [Catalytic activity/Vol] 11 U/L <40 [place] Bilirubin Ql (U) 0.26 mg/dL Low 0.3 - 1.2 mg/dL [place] Bilirubin, Indirect CANNOT BE CALCULATED 0 - 1 mg/dL [place] Bilirubin.direct [Mass/Vol] mg/dL <0.31 mg/dL [place] Globulin (S) [Mass/Vol] NOT REPORTED 1.5 - 3.8 g/dL [place] Protein [Mass/Vol] 7.6 g/dL 6.4 - 8.3 g/dL [place] Lamotrigine Levelon 12-31-19 Interpretation and review of laboratory results Abnormal [place] Lamotrigine Lvl 15.9 ug/mL High 3 - 15 ug/mL [place] Comment on above: Neither a therapeutic or toxic range for Lamotrigine have been well established. Some reports suggest a target for steady-state concentrations of 3 - 15 ug/mL. However, there is not a clear relationship between lamotrigine serum concentrations and clinical response. The assay should be used in conjunction with information available from clinical evaluations and other diagnostic procedures. Multiple measurements of lamotrigine may be needed. Levetiracetam Levelon 2019 Levetiracetam Lvl 72 ug/mL [place] Comment on above: A reference range for Keppra has not been well established. The proposed therapeutic range for seizure control is 6-46 ug/mL. Measurement of Levetiracetam (Keppra) can be elevated due to the presence of both Keppra and Brivaracetam (Briviact) in the patient's system. The medications are structurally similar thus cross reactivity is possible. Pharmacokinetics of Keppra are affected by renal function. The relationship between serum concentrations and toxicity is not known. Metabolic Panelon 12-31-2019 GFR/1.73 sq M predicted among non-blacks MDRD (S/P/Bld) [Vol rate/Area] [place] Comment on above: Stage 1: Some kidney damage normal GFR Stage 2: Mild kidney damage GFR 60-89 Stage 3: Moderate kidney damage GFR 30-59 Stage 4: Severe kidney damage GFR 15-29 Stage 5: Severe kidney damage GFR <15 ESRD - chronic treatment by dialysis or transplant Average GFR for 60-6 9 years old: 85 mL/min/1.73sq m Chronic Kidney Disease: <60 mL/min/1.73sq m Kidney failure: <15 mL/min/1.73sq m eGFR calculated using average adult body mass. Additional eGFR calculator available at: http://www.[employer]/multiple_crcl_2012.htm Otheron 12-31-2019 Interpretation and review of laboratory results Abnormal [place] Microscopic Urinalysison Amorphous, UA NOT REPORTED None [place] Bacteria, UA 3+ Abnormal None [place] Casts UA NOT REPORTED /LPF [place] Crystals UA NOT REPORTED None /HPF [place] Epithelial Cells UA 0 TO 2 [place] Interpretation and review of laboratory results Abnormal [place] Mucus, UA NOT REPORTED None [place] Other Observations UA NOT REPORTED NOT REQ. M [place] RBC (U) [#/Vol] 50 TO 100 [place] Renal Epithelial, Urine NOT REPORTED 0 /HPF [place] Trichomonas, UA NOT REPORTED None [facility] [place] WBC, UA GREATER THAN 100 [place] Yeast, UA NOT REPORTED None [place] - [place] Urinalysison 12-05-2018 Bilirubin Urine Negative NEGATIVE [place] Color, UA YELLOW YELLOW [place] Glucose, Ur Negative NEGATIVE [place] Interpretation and review of laboratory results Abnormal [place] Ketones Ql (U) Negative NEGATIVE [place] Leukocyte esterase Test strip Ql (U) LARGE Abnormal NEGATIVE [place] Nitrite, Urine Negative NEGATIVE [place] pH, UA 6.0 [place] Protein (U) [Mass/Vol] Negative NEGATIVE [place] Specific [place], UA 1.015 [place] Turbidity UA CLOUDY Abnormal CLEAR [place] Urinalysis Comments NOT REPORTED [place] Urine Hgb 3+ Abnormal NEGATIVE [place] Urobilinogen, Urine Normal Normal [place] Basic Metabolic Panlon 11-29 Anion gap [Moles/Vol] 12 mmol/L Normal 9-18 [facility] Calcium [Mass/Vol] 9.1 mg/dL Normal 8.5-10.2 [facility] Chloride [Moles/Vol] 106 mmol/L High 97-105 [facility] CO2 [Moles/Vol] 21 mmol/L Low 22-30 [facility] Creatinine [Mass/Vol] 1.12 mg/dL Normal 0.73-1.22 [facility] eGFR- Amer. >60 Normal [facility] GFR/1.73 sq M predicted among non-blacks MDRD (S/P/Bld) [Vol rate/Area] mL/min/{1.73_m2} Normal [facility] Comment on above: Result Comment: eGFR (Estimated GFR) Units of measure: mL/min/1.73 meters squared eGFR is derived from the reexpressed MDRD Study equation using the following parameters: serum creatinine, age, gender and race. The creatinine assay has been calibrated to be traceable to IDMS. An eGFR <60 mL/min/1.73m2 for >3 months is consistent with chronic kidney disease. Refer to KDOQI guidelines for clinical interpretation. In patients with unstable renal function, e.g. those with acute kidney injury, the eGFR may not accurately reflect actual GFR. Glucose [Mass/Vol] 107 mg/dL High 74-99 [facility] Comment on above: Result Comment: The [place] Diabetes Association (ADA) provides guidance for cutoff values for fasting glucose and random glucose. The ADA defines fasting as no caloric intake for at least 8 hours. Fasting plasma glucose results between 100 to 125 mg/dL indicate increased risk for diabetes (prediabetes). Fasting plasma glucose results greater than or equal to 126 mg/dL meet the criteria for diagnosis of diabetes. In the absence of unequivocal hyperglycemia, results should be confirmed by repeat testing. In a patient with classic symptoms of hyperglycemia or hyperglycemic crisis, random plasma glucose results greater than or equal to 200 mg/dL meet the criteria for diagnosis of diabetes. Reference: Standards of Medical Care in Diabetes 2016, [place] Diabetes Association. Diabetes Care. 2016.39(Suppl 1). Potassium [Moles/Vol] 4.5 mmol/L Normal 3.7-5.1 [facility] Sodium [Moles/Vol] 139 mmol/L Normal 136-144 [facility] Urea nitrogen [Mass/Vol] 7 mg/dL Low 9-24 [facility] CASE MANAGEMon 11-29-2018 CASE MANAGEM HNO ID: [id number] Author: Ciara Issa) ARA Roberts Service: Care Management Author Type: Registered Nurse Type: Care Mgt Progress Note Filed: 11/29/2018 3:26 PM Note Text: CARE MANAGEMENT DISCHARGE NOTE SERVICE DATE: 11/29/2018 SERVICE TIME: 3:00pm LOS: 7 days Admission Date: 11/22/2018 DISCHARGE ARRANGEMENT (list agency and phone number) PENDING [facility] Provider: Laura Rowan . CAREGIVER ASSESSMENT: Caregiver is ready, willing and able to meet the patient's needs as recommended by the inter-professional team? Yes Patient's transition needs and plan for meeting these needs: Transportation is arranged with [facility] to take pt to alf on a stretcher via ambulance. company manager, Laura Rowan notified of discharge today and anticipated discharge time. Also informed of pt discharging with a will cath for urinary retention and follow up with urologist needed. Automation Developer expressed understanding and had no concerns about meeting the pt's needs. Pt's sister/guardian, Susan Smith [phone], was called and Informed of discharge plan and mode of transportation. Guardian was agreeable with both. Does the patient have an acute stroke diagnosis, or has the patient had a stroke during this admission? No HANDOFF COMMUNICATION: Primary Care Physician: Dr Luz Marina Mooney TRANSPORTATION ARRANGEMENTS: Mode of Transportation: Ambulance Transportation Agency and Phone #: [facility] [phone]. Date of Trip: 11/29/18 Type of Service: BLS Non-emergency Is Patient Medicaid Pending: No Discussion of financial coverage occurred with Guardian . Airline Ticket Agent Location: [place] [address] Destination: [facility] Financial Care Management Responsibility: None Estimated Charge: n/a Approving Automation Developer: n/a ADDITIONAL CONTACT RESOURCES: None Discharge Information Row Name Admission (Discharged) from 11/22/[address] Durable Medical Equipment Agency ? Phone# ? Equipment Needed ? Needs Prior to Discharge: None;Ready for Discharge SIGNATURE: Ciara Robetrs RN PATIENT NAME: Amol Taylor DATE: November 29, 2018 TIME: 3:05 PM PAGER/CONTACT #: [phone] Normal [facility] CASE MANAGEM HNO ID: [id number] Author: Kristyn (Ara) ARA Balbuena Service: Care Management Author Type: Registered Nurse Type: Care Mgt Progress Note Filed: 11/29/2018 12:39 PM Note Text: CARE MANAGEMENT PROGRESS NOTE SERVICE DATE: 11/29/2018 SERVICE TIME: 12:35 pm LOS: 7 days IM letter given to pt's sister and guardian Susan via telephone on 11/29/18. Susan voiced understanding of appeal rights and is in agreement with the discharge plan. SIGNATURE: Kristyn Balbuena RN PATIENT NAME: Amol Taylor DATE: November 29, 2018 TIME: 12:38 PM PAGER/CONTACT #: [phone] Normal [facility] CBCon 11-29-2018 Absolute nRBC <0.01 [facility]0.01 [facility] E[facility]th[facility] distribution width (RBC) [Ratio] 11.9 % Normal 11.5-15.0 [facility] Hematocrit (Bld) [Volume fraction] 36.2 % Low 39.0-51.0 [facility] Hemoglobin (Bld) [Mass/Vol] 11.7 g/dL Low 13.0-17.0 [facility] MCH (RBC) [Entitic mass] 32.1 pG Normal 26.0-34.0 [facility] MCHC (RBC) [Mass/Vol] 32.3 g/dL Normal 30.5-36.0 [facility] MCV (RBC) [Entitic vol] 99.2 fL Normal 80.0-100.0 [facility] Platelet mean volume (Bld) [Entitic vol] 9.1 fL Normal 9.0-12.7 [facility] Platelets (Bld) [#/Vol] 250 10*3/uL Normal 150-400 [facility] RBC (Bld) [#/Vol] 3.65 10*6/uL Low 4.20-6.00 [facility] WBC (Bld) [#/Vol] 8.62 10*3/uL Normal 3.70-11.00 [facility] NUTRITIONon 11-29-2018 NUTRITION HNO ID: [id number] Author: Mariela Knott RD Service: Nutrition Therapy Author Type: Registered Dietitian Type: Nutrition Filed: 11/29/2018 2:04 PM Note Text: NUTRITION THERAPY INITIAL ASSESSMENT SERVICE DATE: 11/29/2018 SERVICE TIME: 10:50 am RECOMMENDED MALNUTRITION DIAGNOSIS: MODERATE PROTEIN-CALORIE MALNUTRITION In the context of Acute Illness or Injury based on: Insufficient Energy Intake: Less than or equal to 50% for greater than or equal to 5 days Muscle Loss Mild Loss NUTRITION CARE PLAN: Problem, Etiology and Signs/Symptoms: Suboptimal protein/energy intake related to small bowel obstruction as evidenced by medical record and GI symptoms. Intervention: 1.) Continue heart healthy, GI soft diet as tolerated- goal >60% meals 2.) Start Ensure Enlive once daily to provide 350 kcal and 20 gm protein 3.) Please obtain weight, standing scale if able. Thank you! Monitor and Evaluation: Goal: Meet >75% of estimated needs Monitor fluid/electrolyte balance Monitor labs, I/Os, vital signs, weight Discharge Nutrition Recommendations: Diet: GI soft as tolerated [facility] 11/22 Yolanda Alford MD: Mr. 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 Interval Hx per GI 11/28 1. SBO- Resolved with NG- Xr- contrast enters the colon. 2. Jejunum inflammation- Small bowel series-?Nonspecific dilatation of much of the jejunal loops suggestive of inflammation with mild fold thickening. Orders Placed This Encounter DIET HEART HEALTHY Standing Status: Standing Number of Occurrences: 1 Order Specific Question: Heart Healthy Answer: 4 GM SODIUM (<200 MG CHOL / LOW SAT FAT) Order Specific Question: Gastro Intestinal Answer: GI SOFT-FIBER CONTROLLED Lines and Drains: Peripheral 11/27/18 0815 Assessment Short Left Forearm 22 Gauge (Active) Indwelling Urinary Catheter 11/23/18 1806 Assessment Coude 16 Fr (Active) Nutritional Intake: BUSINESS SERVICES ASSISTANT: Unable to determine nutritional intake due to patient unable to verbalize recent nutrition history and no family at time of service. 11/22-11/27: NPO Per epic 11/28: Clear liquid diet- 100% 11/29: 100% breakfast GI symptoms: unable to determine at this time Nutrition Abdominal Exam: and not assessed ANTHROPOMETRICS Admission Current Weight: 86.36 kg (190 lbs)- bed scale weight obtained by this jingle writer BMI: 31.72 kg/m2 Unable to determine weight loss due to no recent weight history (no weight taken upon admission) and patient unable to verbalize most recent weight. Last Wt 08/10/16 : 95.3 kg (210 lb) 08/06/16 : 95.2 kg (209 lb 14.1 oz) 10/04/15 : 96.6 kg (213 lb) 04/16/15 : 96.6 kg (213 lb) 09/11/14 : 92.1 kg (203 lb) 08/19/14 : 93 kg (205 lb) 05/24/14 : 90 kg (198 lb 6.4 oz) 01/19/14 : 96.6 kg (213 lb) 11/08/13 : 98 kg (216 lb 1.6 oz) 10/12/09 : 82.1 kg (181 lb) 07/13/09 : 81.6 kg (180 lb) 01/05/09 : 83 kg (183 lb) 10/16/08 : 81.6 kg (180 lb) 09/09/07 : 81.6 kg (179 lb 12.8 oz) 09/20/06 : 80 kg (176 lb 6.4 oz) 02/09/06 : 81.4 kg (179 lb 6.4 oz) 08/28/05 : 78.3 kg (172 lb 11.2 oz) 02/23/05 : 79.5 kg (175 lb 4.8 oz) Dosing Weight: 86.36 kg [place] body weight: 61.81 kg Estimated kilocalorie needs: 2726-8643 kilocalories determined by 20-25 kcal/kg Estimated protein needs: 74-92 grams determined by 1.2-1.5 g/kg [place] weight Estimated fluid needs: 5969-4362 milliliters based on 1 mL per kcal NUTRITION FOCUSED PHYSICAL EXAM: Subcutaneous Fat Loss Orbital No fat loss Triceps Mild Mid-axillary at the iliac crest Unable to determine at this time Muscle Loss Locations: Temporalis Mild Pectoralis No muscle loss Deltoids Mild Interosseous Mild Latissimus dorsi, trapezius Unable to determine at this time Quadriceps No muscle loss Gastrocnemius No muscle loss Potential micronutrient deficiency revealed in: No deficiency identified Edema: No Ascites: No Assessment of Functional Status: Unable to determine at this time Temperature Max in 24 hours: Temp (24hrs), Av.6 ?C (97.8 ?F), Min:36.3 ?C (97.3 ?F), Max:36.9 ?C (98.4 ?F) BP 110/52 Pulse 85 Temp 36.7 ?C (98.1 ?F) (Oral) Resp 19 SpO2 100% Recent Labs 11/29/18 0442 GLUC 107* BUN 7* CREAT 1.12 NA 139 K 4.5 CHLOR 106* CO2 21* HB 11.7* HCT 36.2* WBC 8.62 Potential Signs of Inflammation: hyperglycemia ALLERGIES Allergen Reactions - Bleach [Other] - Clindamycin Rash - Penicillins Swelling Pertinent Meds: Heparin, miralax, keppra MNT Billing Type: Initial Assess/15 min 3 units SIGNATURE: Anisa Lieberman RD PATIENT NAME: Amol Taylor DATE: November 29, 2018 TIME: 10:00 AM PAGER: [phone],/ gr[phone] Reviewed and agree with plan of care. Mariela GEORGINA Knott, LD Pager [phone] [facility] CASE MANAGEMon 11-28-2018 CASE MANAGEM HNO ID: [id number] Author: Nelida Goode (Sw) Service: Case Management Author Type: Electrical Contacts Adjuster Type: Care Mgt Progress Note Filed: 11/28/2018 4:21 PM Note Text: CARE MANAGEMENT PROGRESS NOTE SERVICE DATE: 11/28/2018 SERVICE TIME: 4:14 PM LOS: 6 days Needs Prior to Discharge: To Be Determined Spoke with Dr. Saucedo, patient's diet is being advanced today, hopeful for dc tomorrow. He will need to be discharged with a will. Call placed to alf manage Laura Rowan [phone] and message left to make sure that the alf can manage the will. PT was also consulted. SIGNATURE: LAURA Faulkner PATIENT NAME: Amol Taylor DATE: November 28, 2018 TIME: 4:13 PM PAGER/CONTACT #: [phone] [facility] CONSULT PROGon 11-28-2018 CONSULT PROG HNO ID: [id number] Author: Citlali Escalante) Rambasek Service: Gastroenterology Author Type: Nurse Practitioner Type: Consult Progress Note Filed: 11/28/2018 1:58 PM Note Text: CONSULT PROGRESS NOTE SERVICE DATE: 11/28/2018 SERVICE TIME: 1300 CONSULTING SERVICE: Gi Subjective INTERVAL HPI: pt still has contrast in his colon. PT is tolerating clears , denies any pain, n/v and having stools. Current Facility-Administere d Medications Medication Dose Route Frequency - LORazepam 0.5 mg tab(s) (ATIVAN) 0.5 mg ORAL q 8 H PRN - diazepam 20 mg rectal gel (DIASTAT) 20 mg RECTAL PRN - lamoTRIgine 400 mg tab(s) (LaMICtal) 400 mg ORAL DAILY - lamoTRIgine 600 mg tab(s) (LaMICtal) 600 mg ORAL AT BEDTIME - levETIRAcetam 1,500 mg tab(s) (KEPPRA) 1,500 mg ORAL BID - primidone 250 mg tab(s) (MYSOLINE) 250 mg ORAL DAILY - primidone 375 mg tab(s) (MYSOLINE) 375 mg ORAL AT BEDTIME - finasteride 5 mg tab(s) (PROSCAR) 5 mg ORAL DAILY - tamsulosin ER 0.4 mg cap(s) (FLOMAX) 0.4 mg ORAL BID - HYDROcodone 5 mg - acetaminophen 325 mg tablet (NORCO) 1 tablet ORAL q 6 H PRN - heparin 5,000 Units injection 5,000 Units SUBCUTANEOUS q 12 H - ondansetron 4 mg tab(s) (ZOFRAN) 4 mg ORAL q 6 H PRN Or - ondansetron (PF) 4 mg injection (ZOFRAN) 4 mg INTRAVENOUS q 6 H PRN - acetaminophen 650 mg tab(s) (TYLENOL) 650 mg ORAL q 6 H PRN - lacosamide 150 mg tab(s) (VIMPAT) 150 mg ORAL BID - dextrose 5% in NaCl 0.45% with 20 mEq/L KCl iv infusion 100 mL/hr INTRAVENOUS CONTINUOUS - polyethylene glycol 3350 17 g packet (MIRALAX, GLYCOLAX) 17 g ORAL DAILY Objective PHYSICAL EXAM: Physical Exam Performed: GENERAL: Alert, no distress, cooperative, MRDD ABDOMEN: Soft non tender hernia BP 104/65 Pulse 77 Temp (Src) 98.4 (Oral) Resp 16 SpO2 96% O2 Therapy: Room Air DATA: Diagnostic tests reviewed for today's visit: Most recent labs and imaging results. Impression/Recommend ations 1. SBO- Resolved with NG- Xr- contrast enters the colon. 2. Jejunum inflammation- Small bowel series-?Nonspecific dilatation of much of the jejunal loops suggestive of inflammation with mild fold thickening. ? Update ESR 31 CRP 13.7 KUB still has contrast in colon ? Plan PT will need CT Enterography - PCP can order Our office will call and make appt- or pt can follow up with GI by home D/C on miralax ADAT ? D/W Dr. Rogel ? Citlali Alford APRN.CNP [facility] Gastroenterology [facility] Consult? SIGNATURE: Citlali Alford APRN.CNP PATIENT NAME: Amol Taylor DATE: November 28, 2018 TIME: 1:46 PM PAGER: [phone] [facility] CONSULT PROG HNO ID: [id number] Author: Elsa Shields) Vincent Service: General Surgery Author Type: Physician Legal Mediator Type: Consult Progress Note Filed: 11/28/2018 9:38 AM Note Text: SURGICAL SERVICES CONSULT PROGRESS NOTE SERVICE DATE: 11/28/2018 SERVICE TIME: 914 CONSULTING SERVICE: General surgery Subjective INTERVAL HISTORY OF PRESENT ILLNESS: Patient denies any pain. +flauts and BM. Current Facility-Administere d Medications Medication Dose Route Frequency - LORazepam 0.5 mg tab(s) (ATIVAN) 0.5 mg ORAL q 8 H PRN - diazepam 20 mg rectal gel (DIASTAT) 20 mg RECTAL PRN - lamoTRIgine 400 mg tab(s) (LaMICtal) 400 mg ORAL DAILY - lamoTRIgine 600 mg tab(s) (LaMICtal) 600 mg ORAL AT BEDTIME - levETIRAcetam 1,500 mg tab(s) (KEPPRA) 1,500 mg ORAL BID - primidone 250 mg tab(s) (MYSOLINE) 250 mg ORAL DAILY - primidone 375 mg tab(s) (MYSOLINE) 375 mg ORAL AT BEDTIME - finasteride 5 mg tab(s) (PROSCAR) 5 mg ORAL DAILY - tamsulosin ER 0.4 mg cap(s) (FLOMAX) 0.4 mg ORAL BID - HYDROcodone 5 mg - acetaminophen 325 mg tablet (NORCO) 1 tablet ORAL q 6 H PRN - heparin 5,000 Units injection 5,000 Units SUBCUTANEOUS q 12 H - ondansetron 4 mg tab(s) (ZOFRAN) 4 mg ORAL q 6 H PRN Or - ondansetron (PF) 4 mg injection (ZOFRAN) 4 mg INTRAVENOUS q 6 H PRN - acetaminophen 650 mg tab(s) (TYLENOL) 650 mg ORAL q 6 H PRN - lacosamide 150 mg tab(s) (VIMPAT) 150 mg ORAL BID - dextrose 5% in NaCl 0.45% with 20 mEq/L KCl iv infusion 100 mL/hr INTRAVENOUS CONTINUOUS - polyethylene glycol 3350 17 g packet (MIRALAX, GLYCOLAX) 17 g ORAL DAILY Objective PHYSICAL EXAM: BP 102/61 Pulse 71 Temp (Src) 97.7 (Oral) Resp 20 SpO2 95% O2 Therapy: Room Air Physical Exam Performed GENERAL: Alert, no distress, cooperative ABDOMEN: Abdomen soft, non-tender Intake/Output Summary (Last 24 hours) at 11/28/2018 0933 Last data filed at 11/28/2018 0810 Gross per 24 hour Intake ? Output 2150 ml Net -2150 ml DATA: Diagnostic tests reviewed for today's visit: Most recent labs CBC, Coags, BMP, Mg, Phos Recent Labs 11/28/18 0441 11/27/18 0528 11/26/18 0551 WBC 7.78 7.38 9.38 HB 10.8* 10.9* 10.6* HCT 32.9* 33.8* 32.7* PLT 217 200 173 NA 141 140 139 K 4.4 4.2 4.4 CHLOR 107* 106* 104 CO2 24 22 24 BUN 6* 6* 7* CREAT 0.98 0.94 0.94 GLUC 99 93 114* CA 8.8 9.1 8.8 Impression/Recommend ations Patient Active Hospital Problem List: Small bowel obstruction due to adhesions (HCC) (04/26/2014) Severe intellectual disability (10/20/2013) Seizure (HCC) (10/18/2013) Urinary retention (11/24/2018) -continue to ADAT after CT enterography -SBO resolved. No additional surgical input at this time. Re-consult as needed -plan discussed with patient, RN and attending surgeon SIGNATURE: Elsa Kaur PA-C PATIENT NAME: Amol Taylor DATE: November 28, 2018 TIME: 9:33 AM PAGER/CONTACT #: [phone] [facility] NURSING PROGon 11-28-2018 NURSING PROG HNO ID: [id number] Author: Belle Monteiro (Rn) ARA Leon Service: Nursing Author Type: Registered Nurse Type: Nursing Progress Note Filed: 11/28/2018 4:17 PM Note Text: Nursing Progress Note Patient Name: Amol Taylor Patient Location: / Daily Note:Awake, alert, pleasant, cooperative, impulsive. Developmental disability. Denies any abdominal pain or nausea. For another KUB today to monitor level of barium retention. Abdomen remains distended. Has had several stools since laxatives initiated yesterday, but stool output has slowed down as this shift progressed. GI vs. Will advance diet. 1600 Attending vs. This note was completed by: Belle Leon RN [facility] PROGRESSon 11-28-2018 PROGRESS HNO ID: [id number] Author: Debby Saucedo Service: Hospital Medicine Author Type: Physician Type: Progress Notes Filed: 11/28/2018 5:23 PM Note Text: SERVICE DATE: 11/28/2018 SERVICE TIME: 5:23 PM ASSESSMENT AND PLAN 63 y/o M with epilepsy, admitted for SBO KUB showed dilated loops of small bowel General surgery was consulted He was started on IVF, and an NGT was inserted Small bowel series showed nonspecific dilatation of much of the jejunal loops suggestive of inflammation with mild fold thickening also present. ? A will catheter was inserted due to urinary retention and will need on discharge as he had urinary retention while on flomax bid CXR showed left basal atelectasis November 28, [address] enterography as outpatient due to persistent contrast in the intestines Active Hospital Problems as of 11/28/2018 Noted - Resolved Hospital * (Principal) Small bowel obstruction due to adhesions ([facility]) 04/26/2014 - Present Current Assessment AND Plan see plans above Urinary retention 11/24/2018 - Present Current Assessment AND Plan see plans above. Seizure ([facility]) 10/18/2013 - Present Current Assessment AND Plan see plans above Severe intellectual disability 10/20/2013 - Present Medication and Non-Pharmacologic VTE Prophylaxis/Anticoag ulants Anticoagulant AND Antiplatelet Medications (From admission, onward) Start Dose Route Frequency Ordered Stop 11/22/18 1400 heparin 5,000 Units injection (Medical Risk Categories) 5,000 Units SUBCUTANEOUS EVERY 12 HOURS 11/22/18 1356 -- 11/22/18 1400 vte non-pharmacologic prophylaxis - none indicated (ks,oh) 11/22/18 1400 activity - mobilize patient (ks,mo) VTE Prophylaxis: VTE prophylaxis appropriate Plan of care discussed with: Provider, RN, Patient SIGNATURE: Debby Saucedo MD PATIENT NAME: Amol Taylor DATE: November 28, 2018 TIME: 5:23 PM PAGER/CONTACT #: [phone] [facility] PROGRESS HNO ID: [id number] Author: Maribel Hearn (Rt) ADELA aKplan Service: Radiology Author Type: Clinical Threading Machine Setter Type: Progress Notes Filed: 11/28/2018 12:51 PM Note Text: Radiology Service Progress Note PATIENT NAME: Amol Taylor DATE OF SERVICE: November 28, 2018 TIME: 12:50 PM PATIENT IDENTITY VERIFICATION COMPLETED USING TWO (2) METHODS: Name and Date of confirmed by patient verbally. PATIENT GENDER DATA: Male PATIENT RELEVANT IMPLANT DATA REVIEWED: Not Applicable RADIOLOGY DEPARTMENT: General X-ray: Exam(s) Completed: Abdomen X-Ray Abdomen PERIPHERAL IV DATA: Not applicable SIGNED BY: Shruthi Mercado RT Polo Oviedo RT November 28, 2018 12:50 PM [facility] PROGRESS HNO ID: [id number] Author: Debby Saucedo Service: Hospital Medicine Author Type: Physician Type: Progress Notes Filed: 11/27/2018 11:23 PM Note Text: SERVICE DATE: 11/27/2018 SERVICE TIME: 11:22 PM HOSPITAL MEDICINE PROGRESS NOTE NIGHT AND WEEKEND COVERAGE: Days: [phone], please page me for patient issues. Nights: [phone], please page [facility] Hospitalist Night coverage pager [phone] HPI SUBJECTIVE Interval Events: no complaint OBJECTIVE BP 106/61 Pulse 62 Temp (Src) 98.4 (Oral) Resp 18 SpO2 98% O2 Therapy: Room Air Physical Exam Performed: GENERAL: no distress HEART: rrr LUNGS: cta b ABDOMEN: soft, nt EXTREMITY: no edema Lines, Drains, and Airways Line Peripheral 11/27/18 0815 Assessment Short Left Forearm 22 Gauge less than 1 day Drain Indwelling Urinary Catheter 11/23/18 1806 Assessment Coude 16 Fr 4 days Reviewed lines, drains, AND airways. Need to be continued Y Medications: Reviewed Diagnostic tests reviewed: Most recent imaging Most recent labs ASSESSMENT AND PLAN 63 y/o M with epilepsy, admitted for SBO KUB showed dilated loops of small bowel General surgery was consulted He was started on IVF, and an NGT was inserted Small bowel series showed nonspecific dilatation of much of the jejunal loops suggestive of inflammation with mild fold thickening also present. ? A will catheter was inserted due to urinary retention. CXR showed left basal atelectasis November 27, 2018 NG out ADAT await CT enterography Active Hospital Problems as of 11/27/2018 Noted - Resolved Hospital * (Principal) Small bowel obstruction due to adhesions ([facility]) 04/26/2014 - Present Current Assessment AND Plan see plans above Urinary retention 11/24/2018 - Present Current Assessment AND Plan see plans above. Seizure ([facility]) 10/18/2013 - Present Current Assessment AND Plan see plans above Severe intellectual disability 10/20/2013 - Present Medication and Non-Pharmacologic VTE Prophylaxis/Anticoag ulants Anticoagulant AND Antiplatelet Medications (From admission, onward) Start Dose Route Frequency Ordered Stop 11/22/18 1400 heparin 5,000 Units injection (Medical Risk Categories) 5,000 Units SUBCUTANEOUS EVERY 12 HOURS 11/22/18 1356 -- 11/22/18 1400 vte non-pharmacologic prophylaxis - none indicated (ks,oh) 11/22/18 1400 activity - mobilize patient (ks,mo) VTE Prophylaxis: VTE prophylaxis appropriate Plan of care discussed with: Provider, RN, Patient SIGNATURE: Debby Saucedo MD PATIENT NAME: Amol Taylor DATE: November 27, 2018 TIME: 11:22 PM PAGER/CONTACT #: [phone] [facility] XR ABDOMEN 1V SUPINEon 11-28 XR ABDOMEN 1V SUPINE * * *Final Report* * * DATE OF EXAM: Nov 28 2018 12:50PM VHX [id number] - XR ABDOMEN 1V SUPINE / PROCEDURE REASON: Abd pain, unspecified * * * * Physician Interpretation * * * * XR ABDOMEN 1V SUPINE PROVIDED HISTORY: Abd pain, unspecified COMPARISON: 11/27/2018 TECHNIQUE: Supine view of abdomen RESULT: There is contrast seen in the ascending colon and descending colon with a decreased volume when compared to the previous exam. Gaseous distention of the stomach and multiple bowel loops again seen in the abdomen. No free air is apparent. IMPRESSION: Contrast remains in the colon. Persistent gaseous distention of bowel loops Sales Performance Manager: FERNANDA Transcribe Date/Time: Nov 28 2018 1:15P Dictated by : LEONEL DE SANTIAGO MD This examination was interpreted and the report reviewed and electronically signed by: LEONEL DE SANTIAGO MD on Nov 28 2018 1:16PM EST [id number] CN Normal [facility] Basic Metabolic Panlon 11-27 Anion gap [Moles/Vol] 12 mmol/L Normal 9-18 [facility] Calcium [Mass/Vol] 9.1 mg/dL Normal 8.5-10.2 [facility] Chloride [Moles/Vol] 106 mmol/L High 97-105 [facility] CO2 [Moles/Vol] 22 mmol/L Normal 22-30 [facility] Creatinine [Mass/Vol] 0.94 mg/dL Normal 0.73-1.22 [facility] eGFR- Amer. >60 Normal [facility] GFR/1.73 sq M predicted among non-blacks MDRD (S/P/Bld) [Vol rate/Area] mL/min/{1.73_m2} Normal [facility] Comment on above: Result Comment: eGFR (Estimated GFR) Units of measure: mL/min/1.73 meters squared eGFR is derived from the reexpressed MDRD Study equation using the following parameters: serum creatinine, age, gender and race. The creatinine assay has been calibrated to be traceable to IDMS. An eGFR <60 mL/min/1.73m2 for >3 months is consistent with chronic kidney disease. Refer to KDOQI guidelines for clinical interpretation. In patients with unstable renal function, e.g. those with acute kidney injury, the eGFR may not accurately reflect actual GFR. Glucose [Mass/Vol] 93 mg/dL Normal 74-99 [facility] Comment on above: Result Comment: The [place] Diabetes [employer] (ADA) provides guidance for cutoff values for fasting glucose and random glucose. The ADA defines fasting as no caloric intake for at least 8 hours. Fasting plasma glucose results between 100 to 125 mg/dL indicate increased risk for diabetes (prediabetes). Fasting plasma glucose results greater than or equal to 126 mg/dL meet the criteria for diagnosis of diabetes. In the absence of unequivocal hyperglycemia, results should be confirmed by repeat testing. In a patient with classic symptoms of hyperglycemia or hyperglycemic crisis, random plasma glucose results greater than or equal to 200 mg/dL meet the criteria for diagnosis of diabetes. Reference: Standards of Medical Care in Diabetes 2016, [place] [employer]. Diabetes Care. 2016.39(Suppl 1). Potassium [Moles/Vol] 4.2 mmol/L Normal 3.7-5.1 [facility] Sodium [Moles/Vol] 140 mmol/L Normal 136-144 [facility]ital Urea nitrogen [Mass/Vol] 6 mg/dL Low 9-24 [facility] CASE MANAGEMon 11-27-2018 CASE MANAGEM HNO ID: [id number] Author: Kristyn (Rn) ARA Balbuena Service: Care Management Author Type: Registered Nurse Type: Care Mgt Progress Note Filed: 11/27/2018 3:56 PM Note Text: CARE MANAGEMENT PROGRESS NOTE SERVICE DATE: 11/27/2018 SERVICE TIME: 3:45 pm LOS: 5 days Needs Prior to Discharge: To Be Determined Pt remains on regular nursing unit. GI and General Surgery following. Pt on clear liquid diet. Per GI plan is for CT enterography to assess inflammation however pt needs a bowel prep to remove prior contrast. Adult And Pediatric Neurologist will continue to follow. Will notify pt's alf closer to time of discharge. SIGNATURE: Kristyn Balbuena RN PATIENT NAME: Amol Taylor DATE: November 27, 2018 TIME: 3:45 PM PAGER/CONTACT #: [phone] Normal [facility] CBCon 11-27-2018 Absolute nRBC <0.01 Normal <0.01 [facility] E[facility]th[facility] distribution width (RBC) [Ratio] 11.9 % Normal 11.5-15.0 [facility] Hematocrit (Bld) [Volume fraction] 33.8 % Low 39.0-51.0 [facility] Hemoglobin (Bld) [Mass/Vol] 10.9 g/dL Low 13.0-17.0 [facility] MCH (RBC) [Entitic mass] 31.9 pG Normal 26.0-34.0 [facility] MCHC (RBC) [Mass/Vol] 32.2 g/dL Normal 30.5-36.0 [facility] MCV (RBC) [Entitic vol] 98.8 fL Normal 80.0-100.0 [facility] Platelet mean volume (Bld) [Entitic vol] 9.6 fL Normal 9.0-12.7 [facility] l Platelets (Bld) [#/Vol] 200 10*3/uL Normal 150-400 [facility] RBC (Bld) [#/Vol] 3.42 10*6/uL Low 4.20-6.00 [facility] WBC (Bld) [#/Vol] 7.38 10*3/uL Normal 3.70-11.00 [facility] CONSULT PROGon 11-27-2018 CONSULT PROG HNO ID: [id number] Author: Citlali Escalante) Rambasek Service: Gastroenterology Author Type: Nurse Practitioner Type: Consult Progress Note Filed: 11/27/2018 2:21 PM Note Text: CONSULT PROGRESS NOTE SERVICE DATE: 11/27/2018 SERVICE TIME: 1200 CONSULTING SERVICE: GI Subjective INTERVAL HPI: No acute events over night. Pt tolerating clears. Current Facility-Administere d Medications Medication Dose Route Frequency - LORazepam 0.5 mg tab(s) (ATIVAN) 0.5 mg ORAL q 8 H PRN - diazepam 20 mg rectal gel (DIASTAT) 20 mg RECTAL PRN - lamoTRIgine 400 mg tab(s) (LaMICtal) 400 mg ORAL DAILY - lamoTRIgine 600 mg tab(s) (LaMICtal) 600 mg ORAL AT BEDTIME - levETIRAcetam 1,500 mg tab(s) (KEPPRA) 1,500 mg ORAL BID - primidone 250 mg tab(s) (MYSOLINE) 250 mg ORAL DAILY - primidone 375 mg tab(s) (MYSOLINE) 375 mg ORAL AT BEDTIME - finasteride 5 mg tab(s) (PROSCAR) 5 mg ORAL DAILY - tamsulosin ER 0.4 mg cap(s) (FLOMAX) 0.4 mg ORAL BID - HYDROcodone 5 mg - acetaminophen 325 mg tablet (NORCO) 1 tablet ORAL q 6 H PRN - heparin 5,000 Units injection 5,000 Units SUBCUTANEOUS q 12 H - ondansetron 4 mg tab(s) (ZOFRAN) 4 mg ORAL q 6 H PRN Or - ondansetron (PF) 4 mg injection (ZOFRAN) 4 mg INTRAVENOUS q 6 H PRN - acetaminophen 650 mg tab(s) (TYLENOL) 650 mg ORAL q 6 H PRN - lacosamide 150 mg tab(s) (VIMPAT) 150 mg ORAL BID - dextrose 5% in NaCl 0.45% with 20 mEq/L KCl iv infusion 100 mL/hr INTRAVENOUS CONTINUOUS - magnesium citrate 296 mL liquid 296 mL ORAL ONCE - polyethylene glycol 3350 17 g packet (MIRALAX, GLYCOLAX) 17 g ORAL DAILY Objective PHYSICAL EXAM: Physical Exam Performed: GENERAL: Alert, no distress, cooperative ABDOMEN: Soft, nontender and bs+ BP 94/61 Pulse 83 Temp (Src) 97.9 (Oral) Resp 16 SpO2 97% O2 Therapy: Room Air DATA: Diagnostic tests reviewed for today's visit: Most recent labs and imaging results. Impression/Recommend ations 1. SBO- Resolved with NG- Xr- contrast enters the colon. 2. Jejunum inflammation- Small bowel series- Nonspecific dilatation of much of the jejunal loops suggestive of inflammation with mild fold thickening. Update ESR 31 CRP 13.7 ? Plan CT enterography to assess inflammation Giving bowel prep to get contrast out so we can get CT Inflammatory markers Continue to monitor ? D/W Dr. Rogel ? Citlali Alford APRN.CNP [facility] Gastroenterology [facility] Consult SIGNATURE: Citlali Alford APRN.CNP PATIENT NAME: Amol Taylor DATE: November 27, 2018 TIME: 2:18 PM PAGER: [phone] [facility] NURSING PROGon 11-27-2018 NURSING PROG HNO ID: [id number] Author: Belle Monteiro (Rn) ARA Leon Service: Nursing Author Type: Registered Nurse Type: Nursing Progress Note Filed: 11/27/2018 11:41 AM Note Text: Nursing Progress Note Patient Name: Amol Taylor Patient Location: [facility]/ Daily Note:0815 Dozing, easily awakened. Denies any pain. Somewhat irritable. Relates wants to sleep. Previous shift related pt to be NPO. According to [facility], he was ordered a clear liquid diet yesterday. IVF restarted after restart by [facility]. 1030 Accepted po meds without difficulty. However, coughing while taking clear liquids. Found taking in fluids rapidly, fluids coming out of his nose. No respiratory distress. Will monitor this. To KUB via bed. 1130 X-ray tech relates he will notify surgical PA about KUB results. This note was completed by: Belle Leon RN [facility] NURSING PROG HNO ID: [id number] Author: Vangie (Ara) ARA Zuniga Service: Nursing Author Type: Registered Nurse Type: Nursing Progress Note Filed: 11/27/2018 6:00 AM Note Text: Nursing Progress Note Patient Name: Amol Taylor Patient [place] [address] [address] Daily Note: Left arm IV infiltrated. Arm swollen . IV removed. Ice bag applied and arm elevated. This note was completed by: Vangie Zuniga RN [facility] XR ABD 2V SUPINE W UPR/DECUB /CTLon 11-27-2018 XR ABD 2V SUPINE W UPR/DECUB/CTL * * *Final Report* * * DATE OF EXAM: Nov 27 2018 11:15AM VHX [id number] - XR ABD 2V SUPINE W UPR/DECUB/CTL / PROCEDURE REASON: Abd distension * * * * Physician Interpretation * * * * CLINICAL: Abdominal distention TECHNIQUE: Single KUB of the abdomen. FINDINGS: A nonspecific nonobstructive bowel gas pattern is present. Contrast is seen predominantly in the large bowel from a recent CT enterography 1 day prior. The osseous structures are grossly normal. IMPRESSION: Residual contrast in the large bowel from recent CT performed 24 hours earlier. The bowel gas pattern is nonobstructive. Sales Performance Manager: FERNANDA Transcribe Date/Time: Nov 27 2018 6:45P Dictated by : EMILIA ANGEL MD This examination was interpreted and the report reviewed and electronically signed by: EMILIA ANGEL MD on Nov 27 2018 6:46PM EST [id number] CN Normal [facility] Basic Metabolic Panlon 11-26 Anion gap [Moles/Vol] 11 mmol/L Normal 9-18 [facility] Calcium [Mass/Vol] 8.8 mg/dL Normal 8.5-10.2 [facility] Chloride [Moles/Vol] 104 mmol/L Normal 97-105 [facility] CO2 [Moles/Vol] 24 mmol/L Normal 22-30 [facility] Creatinine [Mass/Vol] 0.94 mg/dL Normal 0.73-1.22 [facility] eGFR- Amer. >60 Normal [facility] GFR/1.73 sq M predicted among non-blacks MDRD (S/P/Bld) [Vol rate/Area] mL/min/{1.73_m2} Normal [facility] Comment on above: Result Comment: eGFR (Estimated GFR) Units of measure: mL/min/1.73 meters squared eGFR is derived from the reexpressed MDRD Study equation using the following parameters: serum creatinine, age, gender and race. The creatinine assay has been calibrated to be traceable to IDMS. An eGFR <60 mL/min/1.73m2 for >3 months is consistent with chronic kidney disease. Refer to KDOQI guidelines for clinical interpretation. In patients with unstable renal function, e.g. those with acute kidney injury, the eGFR may not accurately reflect actual GFR. Glucose [Mass/Vol] 114 mg/dL High 74-99 [facility] Comment on above: Result Comment: The [place] Diabetes [employer] (ADA) provides guidance for cutoff values for fasting glucose and random glucose. The ADA defines fasting as no caloric intake for at least 8 hours. Fasting plasma glucose results between 100 to 125 mg/dL indicate increased risk for diabetes (prediabetes). Fasting plasma glucose results greater than or equal to 126 mg/dL meet the criteria for diagnosis of diabetes. In the absence of unequivocal hyperglycemia, results should be confirmed by repeat testing. In a patient with classic symptoms of hyperglycemia or hyperglycemic crisis, random plasma glucose results greater than or equal to 200 mg/dL meet the criteria for diagnosis of diabetes. Reference: Standards of Medical Care in Diabetes 2016, [place] [employer]. Diabetes Care. 2016.39(Suppl 1). Potassium [Moles/Vol] 4.4 mmol/L Normal 3.7-5.1 [facility] Sodium [Moles/Vol] 139 mmol/L Normal 136-144 [facility]ital Urea nitrogen [Mass/Vol] 7 mg/dL Low 9-24 [facility] C-Reactive Proteinon 019 CRP [Mass/Vol] 13.7 mg/dL High <0.9 [facility] carie Comment on above: Performed By: #### W SR ####[facility] [id number] [place], [place] [id number] CBCon 11-26-2018 Absolute nRBC <0.01 Normal <0.01 [facility] al Erythrocyte distribution width (RBC) [Ratio] 11.9 % Normal 11.5-15.0 [facility] Hematocrit (Bld) [Volume fraction] 32.7 % Low 39.0-51.0 [facility] Hemoglobin (Bld) [Mass/Vol] 10.6 g/dL Low 13.0-17.0 [facility] MCH (RBC) [Entitic mass] 32.1 pG Normal 26.0-34.0 [facility] MCHC (RBC) [Mass/Vol] 32.4 g/dL Normal 30.5-36.0 [facility] MCV (RBC) [Entitic vol] 99.1 fL Normal 80.0-100.0 [facility] Platelet mean volume (Bld) [Entitic vol] 9.0 fL Normal 9.0-12.7 [facility] l Platelets (Bld) [#/Vol] 173 10*3/uL Normal 150-400 [facility] RBC (Bld) [#/Vol] 3.30 10*6/uL Low 4.20-6.00 [facility] WBC (Bld) [#/Vol] 9.38 10*3/uL Normal 3.70-11.00 [facility] CONSULTon 11-26-2018 CONSULT HNO ID: [id number] Author: Citlali Alford Service: Gastroenterology Author Type: Nurse Practitioner Type: Consults Filed: 11/26/2018 2:37 PM Note Text: Attestation signed by Staci Rogel at 11/27/2018 12:02 PM Agree with the consult CONSULT: GI SERVICE SERVICE DATE: 11/26/2018 SERVICE TIME: 1300 REASON FOR CONSULT: Jejunal inflammation REQUESTING PHYSICIAN: Lewis PRIMARY CARE PHYSICIAN: Caroline Cochran MD Subjective Mr. Taylor is a 63 year old male with a PMH of MRDD, seizure disorder, recurrent SBO s/p resection x2 2010 AND 2014 and stroke who presents with a SBO. Resolved with NGT- which is now removed. Pt is asymptomatic - n/v has resolved. PT is not a good historian attempted to call sister who is POA. FUNCTIONAL STATUS: Totally dependent PAST MEDICAL HISTORY Diagnosis Date - Closed fracture of shaft of fibula 11/24/2014 - Mental retardation - Nontoxic uninodular goiter stable - Seizure disorder (HCC) follows with neuro Kelton Hagen PAST SURGICAL HISTORY Procedure Laterality Date - INSERT PICC 05/11/2014 - LAP SM BOWEL RESECTION W/ANASTOMOSIS, SNGL 10/2013 fascia closed, skin open for SBO - MIDLINE INSERTION/CONSULT 05/04/2014 - MIDLINE INSERTION/CONSULT 08/08/2016 - PAST SURGICAL HISTORY OF 7 months old abd surgery - PAST SURGICAL HISTORY OF fracture clavicle - PAST SURGICAL HISTORY OF VAGAL NERVE STIMULATOR for seizure Px - PAST SURGICAL HISTORY OF 05/05/14 Exploratory laparotomy, small bowel resection and anastomosis , extensive lysis of adhesions FAMILY HISTORY Problem Relation Age of Onset - Ischemic Heart Disease Mother - other (Thyroid Ca) Mother - other (Multiple Myeloma) Mother - other (DM) Mother - other (htn) Mother - other (Lung Ca) Father smoker - other (A fib) Brother - other (Heart attack) Brother - other (HTN) Sister - other (DM) Sister - other (leukemia) Maternal Uncle - other (pancreatic Ca) Maternal Aunt - Ischemic Heart Disease Maternal Grandfather - Alzheimer's Disease Maternal Grandmother - other (HTN) Maternal Grandmother - other (dm) Paternal Grandmother Social History Tobacco Use - Smoking status: Never Smoker - Smokeless tobacco: Never Used Substance Use Topics - Alcohol use: No - Drug use: No Medications Prior to Admission: levETIRAcetam (KEPPRA) 1,000 mg tablet Take 1,500 mg by mouth twice daily. Disp: Rfl: 08/07/2016 at 0600 lacosamide (VIMPAT) 150 mg tab Take by mouth twice daily. 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 Disp: Rfl: Unknown at Unknown time tamsulosin ER (FLOMAX) 0.4 mg cp24 Take 1 capsule by mouth once daily. 30 minutes after the same meal each day. (Patient taking differently: Take 0.4 mg by mouth twice daily. 30 minutes after the same meal each day.) Disp: 90 capsule Rfl: 4 08/07/2016 at 0600 finasteride (PROSCAR) 5 mg tablet Take 1 tablet by mouth once daily. Disp: 90 tablet Rfl: 4 08/07/2016 at 0600 calcium carbonate (CALCIUM 600) 600 mg (1,500 mg) tab Take 1 tablet by mouth twice daily. (Patient taking differently: Take 1,500 mg by mouth twice daily. Chewable gummie.) Disp: 180 tablet Rfl: 3 Loperamide HCl (IMODIUM) 2 mg tab Take 1 tablet by mouth as needed (Patient takes two capsules on onset, one capsule after each loose stool and up to 4 in 24 hours). Disp: 120 tablet Rfl: 3 Unknown at Unknown time inulin-chromium picolinate (FIBER SELECT GUMMIES) 2-100 gram-mcg chew Patient takes 5mg gummies, once gummy twice daily Disp: 180 tablet Rfl: 3 Unknown at Unknown time Ibuprofen 200 mg cap Take 2 capsules by mouth every 4 hours (for headaches, muscle pain or fever over 100 degrees) Disp: 180 capsule Rfl: 3 Unknown at Unknown time HYDROcodone-acetamin ophen (NORCO) 5-325 mg per tablet 1 tablet every 6 hours as needed. Disp: Rfl: Unknown at Unknown time ondansetron orally disintegrating (ZOFRAN ODT) 4 mg disintegrating tablet Take 1 tablet by mouth every 8 hours as needed. Disp: 20 tablet Rfl: 0 Unknown at Unknown time lorazepam(ATIVAN 0.5 MG TAB) Take one(1) tablet every eight(8) hours as needed for seizures Disp: Rfl: 0 08/06/2016 at 1800 lamotrigine(LAMICTAL 200 MG TAB) take two 2 tablets in am and three(3)tablets in pm Disp: Rfl: 0 08/07/2016 at 0600 PRIMIDONE 250 MG TAB Take one(1)tablet in am and take one and one-half(1AND1/2) tablets in pm. Disp: Rfl: 0 08/07/2016 at 0600 Current Facility-Administere d Medications Medication Dose Route Frequency - LORazepam 0.5 mg tab(s) (ATIVAN) 0.5 mg ORAL q 8 H PRN - diazepam 20 mg rectal gel (DIASTAT) 20 mg RECTAL PRN - lamoTRIgine 400 mg tab(s) (LaMICtal) 400 mg ORAL DAILY - lamoTRIgine 600 mg tab(s) (LaMICtal) 600 mg ORAL AT BEDTIME - levETIRAcetam 1,500 mg tab(s) (KEPPRA) 1,500 mg ORAL BID - primidone 250 mg tab(s) (MYSOLINE) 250 mg ORAL DAILY - primidone 375 mg tab(s) (MYSOLINE) 375 mg ORAL AT BEDTIME - finasteride 5 mg tab(s) (PROSCAR) 5 mg ORAL DAILY - tamsulosin ER 0.4 mg cap(s) (FLOMAX) 0.4 mg ORAL BID - HYDROcodone 5 mg - acetaminophen 325 mg tablet (NORCO) 1 tablet ORAL q 6 H PRN - heparin 5,000 Units injection 5,000 Units SUBCUTANEOUS q 12 H - ondansetron 4 mg tab(s) (ZOFRAN) 4 mg ORAL q 6 H PRN Or - ondansetron (PF) 4 mg injection (ZOFRAN) 4 mg INTRAVENOUS q 6 H PRN - acetaminophen 650 mg tab(s) (TYLENOL) 650 mg ORAL q 6 H PRN - lacosamide 150 mg tab(s) (VIMPAT) 150 mg ORAL BID - dextrose 5% in NaCl 0.45% with 20 mEq/L KCl iv infusion 100 mL/hr INTRAVENOUS CONTINUOUS Allergies As of Date: 11/22/2018 Allergen Noted Reaction BLEACH [OTHER] 02/23/2005 CLINDAMYCIN 02/23/2005 Rash PENICILLINS 02/23/2005 Swelling Fully Assessed 11/22/2018 COMPLETE REVIEW OF SYSTEMS: PAIN ASSESSMENT: Negative for pain, history of chronic pain, or current treatment for a chronic pain condition. GENERAL: No weight loss, malaise or fevers RESPIRATORY: Negative for cough, hemoptysis, wheezing, COPD, dyspnea or shortness of breath CARDIOVASCULAR: Negative for chest pain, leg swelling, hypertension, CHF or palpitations GI: No nausea, vomiting, or diarrhea Objective PHYSICAL EXAM: Physical Exam Performed: GENERAL: Alert, no distress, cooperative, Cooperative LUNGS: Lungs clear to auscultation, Good diaphragmatic excursion CARDIAC: Normal S1 and S2; no rubs, murmurs, or gallops ABDOMEN: soft, hernia bs + BP 116/71 Pulse 78 Temp (Src) 98.1 (Oral) Resp 16 SpO2 96% O2 Therapy: Room Air DATA: Diagnostic tests reviewed for today's visit: Most recent labs and imaging results. Impression/Recommend ations 1. SBO- Resolved with NG- Xr- contrast enters the colon. 2. Jejunum inflammation- Small bowel series- Nonspecific dilatation of much of the jejunal loops suggestive of inflammation with mild fold thickening. Plan CT enterography to assess inflammation Inflammatory markers Continue to monitor D/W Dr. Pebbles Alford APRN.OTONIEL [facility] Gastroenterology [facility] Consult SIGNATURE: Citlali Alford APRN.OTONIEL PATIENT NAME: Amol Taylor DATE: November 26, 2018 TIME: 2:00 PM PAGER: [phone] [facility] PROGRESSon 11-26-2018 PROGRESS HNO ID: [id number] Author: Raquel Buckley (Pa) Service: General Surgery Author Type: Physician Legal Mediator Type: Progress Notes Filed: 11/26/2018 11:01 AM Note Text: Attestation signed by Kandice Artis at 11/26/2018 11:04 AM Attending Note: Gee findings confirmed. Patient examined. Discussed with the physician assistant gm of content & delivery and the patient. Plan as outlined. Abd soft, no distension. SBFT neg for obstruction. Reported to have a small BM yesterday. None today. NG clamped since AM. Will monitor abd symptoms with clamped NG, likely dc NG today vs tomorrow AM pending more GI function before starting diet. Yamilet Artis, DO SURGICAL SERVICES PROGRESS NOTE SERVICE DATE: 11/26/2018 SERVICE TIME: 10:56 AM Subjective CHIEF COMPLAINT: none INTERVAL HISTORY OF PRESENT ILLNESS: Pt denied abdominal pain, nausea, or vomiting at time of examination. Floor RN reported formed BM yesterday, denied vomiting overnight. Current Facility-Administere d Medications Medication Dose Route Frequency - LORazepam 0.5 mg tab(s) (ATIVAN) 0.5 mg ORAL q 8 H PRN - diazepam 20 mg rectal gel (DIASTAT) 20 mg RECTAL PRN - lamoTRIgine 400 mg tab(s) (LaMICtal) 400 mg ORAL DAILY - lamoTRIgine 600 mg tab(s) (LaMICtal) 600 mg ORAL AT BEDTIME - levETIRAcetam 1,500 mg tab(s) (KEPPRA) 1,500 mg ORAL BID - primidone 250 mg tab(s) (MYSOLINE) 250 mg ORAL DAILY - primidone 375 mg tab(s) (MYSOLINE) 375 mg ORAL AT BEDTIME - finasteride 5 mg tab(s) (PROSCAR) 5 mg ORAL DAILY - tamsulosin ER 0.4 mg cap(s) (FLOMAX) 0.4 mg ORAL BID - HYDROcodone 5 mg - acetaminophen 325 mg tablet (NORCO) 1 tablet ORAL q 6 H PRN - heparin 5,000 Units injection 5,000 Units SUBCUTANEOUS q 12 H - ondansetron 4 mg tab(s) (ZOFRAN) 4 mg ORAL q 6 H PRN Or - ondansetron (PF) 4 mg injection (ZOFRAN) 4 mg INTRAVENOUS q 6 H PRN - acetaminophen 650 mg tab(s) (TYLENOL) 650 mg ORAL q 6 H PRN - lacosamide 150 mg tab(s) (VIMPAT) 150 mg ORAL BID - dextrose 5% in NaCl 0.45% with 20 mEq/L KCl iv infusion 100 mL/hr INTRAVENOUS CONTINUOUS Objective PHYSICAL EXAM: GENERAL: Alert, no distress, cooperative ENT: NGT in place with clear output, no nasal breakdown or ulceration SKIN: Skin color, texture, turgor normal. No rashes or lesions. LUNGS: Decreased respiratory effort, clear in upper lobes BL. CARDIAC: Normal S1 and S2; no rubs, murmurs, or gallops ABDOMEN: Large, mobile, nontender ventral hernia. Bowel sounds throughout abdomen. Moderately distended. Nontender to palpation. No peritoneal signs or rebound tenderness. : Will catheter in place, no penile breakdown. BP 111/68 Pulse 79 Temp 36.7 ?C (98.1 ?F) (Oral) Resp 16 SpO2 95% There is no height or weight on file to calculate BMI. DATA: Diagnostic tests reviewed for today's visit: Most recent labs and imaging results. SBFT - IMPRESSION: Nonspecific dilatation of much of the jejunal loops suggestive of inflammation with mild fold thickening also present. ? Contrast enters the colon within one hour CXR - Left lower lobe subsegmental atelectasis Assessment Amol Taylor is a 63 year old male with history of MR, seizures, BPH, and incisional hernia with resolving SBO Plan - NGT clamp trial today (9am - 1pm), ok to remove NGT if residual output less than 100mL - Will order abdominal x-ray tomorrow - NPO DVT Prophylaxis: Intermittent pneumatic compression device (IPCD) and Heparin Reason for Continuing Antibiotics: There is no need to continue antibiotics SIGNATURE: Raquel Buckley PA-C PATIENT NAME: Amol Taylor DATE: November 26, 2018 TIME: 10:56 AM PAGER/CONTACT #: [phone] ETX#[id number] [facility] PROGRESS HNO ID: [id number] Author: Devika Weeks (Rt) Zahira Lim Service: Radiology Author Type: Threading Machine Setter Type: Progress Notes Filed: 11/26/2018 10:07 AM Note Text: Radiology Service Progress Note PATIENT NAME: Amol Taylor DATE OF SERVICE: November 26, 2018 TIME: 10:07 AM PATIENT IDENTITY VERIFICATION COMPLETED USING TWO (2) METHODS: Name and Date of confirmed by patient verbally and Name and Date of confirmed by identification band. PATIENT GENDER DATA: Male PATIENT RELEVANT IMPLANT DATA REVIEWED: Not Applicable RADIOLOGY DEPARTMENT: General X-ray: Exam(s) Completed: Chest X-Ray PERIPHERAL IV DATA: Not applicable SIGNED BY: RT UYEN November 26, 2018 10:07 AM [facility] PROGRESS HNO ID: [id number] Author: Debby Saucedo Service: Hospital Medicine Author Type: Physician Type: Progress Notes Filed: 11/26/2018 9:32 AM Note Text: SERVICE DATE: 11/26/2018 SERVICE TIME: 9:32 AM HOSPITAL MEDICINE PROGRESS NOTE NIGHT AND WEEKEND COVERAGE: Days: [phone], please page me for patient issues. Nights: [phone], please page [facility] Hospitalist Night coverage pager [phone] HPI SUBJECTIVE Interval Events: Improved 600 cc output yesterday for NG SBS results noted - surgery recommended GI consult to r/o IBD as cause of SBO OBJECTIVE BP 111/68 Pulse 79 Temp (Src) 98.1 (Oral) Resp 16 SpO2 95% O2 Therapy: Room Air Physical Exam Performed: GENERAL: no distress HEART: rrr LUNGS: cta b ABDOMEN: soft, midline surgical scar, incisional hernia Left EXTREMITY: no edema Lines, Drains, and Airways Line Peripheral 11/22/18 1325 Admission to Hospital Right Antecubital 22 Gauge 3 days Drain GI Feed 11/24/18 0009 Assessment Gastric Left Naris 2 days Indwelling Urinary Catheter 11/23/18 1806 Assessment Coude 16 Fr 2 days Reviewed lines, drains, AND airways. Need to be continued Y Medications: Reviewed Diagnostic tests reviewed: Most recent imaging Most recent labs ASSESSMENT AND PLAN 63 y/o M with epilepsy, admitted for SBO KUB showed dilated loops of small bowel General surgery was consulted He was started on IVF, and an NGT was inserted Small bowel series showed nonspecific dilatation of much of the jejunal loops suggestive of inflammation with mild fold thickening also present. ? A will catheter was inserted due to urinary retention. 11/26/2018 GI consult today; CXR today due to cough Active Hospital Problems as of 11/26/2018 Noted - Resolved Hospital * (Principal) Small bowel obstruction due to adhesions (HCC) 04/26/2014 - Present Current Assessment AND Plan see plans above Urinary retention 11/24/2018 - Present Current Assessment AND Plan see plans above. Seizure (HCC) 10/18/2013 - Present Current Assessment AND Plan see plans above Severe intellectual disability 10/20/2013 - Present Medication and Non-Pharmacologic VTE Prophylaxis/Anticoag ulants Anticoagulant AND Antiplatelet Medications (From admission, onward) Start Dose Route Frequency Ordered Stop 11/22/18 1400 heparin 5,000 Units injection (Medical Risk Categories) 5,000 Units SUBCUTANEOUS EVERY 12 HOURS 11/22/18 1356 -- 11/22/18 1400 vte non-pharmacologic prophylaxis - none indicated (ks,oh) 11/22/18 1400 activity - mobilize patient ([place]) VTE Prophylaxis: VTE prophylaxis appropriate Plan of care discussed with: Provider, RN, Patient SIGNATURE: Debby Saucedo MD PATIENT NAME: Amol Taylor DATE: November 26, 2018 TIME: 9:32 AM PAGER/CONTACT #: [phone] Normal [facility] Sed Rate Westergrenon 2018 Sed Rate Westergren 31 mm/hr High 0-15 [facility] Comment on above: Performed By: #### W SR ####[facility] [place], [place] [id number] XR CHEST 1V FRONTAL PORTon 0 11-26-2018 XR CHEST 1V FRONTAL PORT * * *Final Report* * * DATE OF EXAM: Nov 26 2018 10:06AM VHX [id number] - XR CHEST 1V FRONTAL PORT / PROCEDURE REASON: Cough, new onset * * * * Physician Interpretation * * * * EXAMINATION: CHEST RADIOGRAPH (PORTABLE SINGLE VIEW AP) Exam Date/Time: 11/26/2018 10:06 AM CLINICAL HISTORY: Cough, new onset MQ: XCPR_5 Comparison: August 2016 RESULT: Lines, tubes, and devices: Nasogastric tube in stomach. Left-sided chest wall stimulator device Lungs and pleura: Left lower lobe linear subsegmental atelectasis. No overt edema. No focal consolidation. Cardiomediastinal silhouette: Stable cardiomediastinal silhouette. Other: . IMPRESSION: Left lower lobe subsegmental atelectasis Sales Performance Manager: PSCB Transcribe Date/Time: Nov 26 2018 10:51A Dictated by : JORDYN MONCADA MD This examination was interpreted and the report reviewed and electronically signed by: JORDYN MONCADA MD on Nov 26 2018 10:53AM EST [id number] CN Normal [facility] Basic Metabolic Panlon 11-25 Anion gap [Moles/Vol] 11 mmol/L Normal 9-18 [facility] Calcium [Mass/Vol] 8.5 mg/dL Normal 8.5-10.2 [facility] Chloride [Moles/Vol] 104 mmol/L Normal 97-105 [facility] CO2 [Moles/Vol] 25 mmol/L Normal 22-30 [facility] Creatinine [Mass/Vol] 0.97 mg/dL Normal 0.73-1.22 [facility] eGFR- Amer. >60 Normal [facility] GFR/1.73 sq M predicted among non-blacks MDRD (S/P/Bld) [Vol rate/Area] mL/min/{1.73_m2} Normal [facility] Comment on above: Result Comment: eGFR (Estimated GFR) Units of measure: mL/min/1.73 meters squared eGFR is derived from the reexpressed MDRD Study equation using the following parameters: serum creatinine, age, gender and race. The creatinine assay has been calibrated to be traceable to IDMS. An eGFR <60 mL/min/1.73m2 for >3 months is consistent with chronic kidney disease. Refer to KDOQI guidelines for clinical interpretation. In patients with unstable renal function, e.g. those with acute kidney injury, the eGFR may not accurately reflect actual GFR. Glucose [Mass/Vol] 108 mg/dL High 74-99 [facility] Comment on above: Result Comment: The [place] Diabetes Association (ADA) provides guidance for cutoff values for fasting glucose and random glucose. The ADA defines fasting as no caloric intake for at least 8 hours. Fasting plasma glucose results between 100 to 125 mg/dL indicate increased risk for diabetes (prediabetes). Fasting plasma glucose results greater than or equal to 126 mg/dL meet the criteria for diagnosis of diabetes. In the absence of unequivocal hyperglycemia, results should be confirmed by repeat testing. In a patient with classic symptoms of hyperglycemia or hyperglycemic crisis, random plasma glucose results greater than or equal to 200 mg/dL meet the criteria for diagnosis of diabetes. Reference: Standards of Medical Care in Diabetes 2016, [place] Diabetes Association. Diabetes Care. 2016.39(Suppl 1). Potassium [Moles/Vol] 4.0 mmol/L Normal 3.7-5.1 [facility] Sodium [Moles/Vol] 140 mmol/L Normal 136-144 [facility] Urea nitrogen [Mass/Vol] 9 mg/dL Normal 9-24 [facility] CBCon 11-25-2018 Absolute nRBC <0.01 Normal <0.01 [facility] Erythrocyte distribution width (RBC) [Ratio] 12.0 % Normal 11.5-15.0 [facility] Hematocrit (Bld) [Volume fraction] 32.1 % Low 39.0-51.0 [facility] Hemoglobin (Bld) [Mass/Vol] 10.2 g/dL Low 13.0-17.0 [facility] MCH (RBC) [Entitic mass] 32.0 pG Normal 26.0-34.0 [facility] MCHC (RBC) [Mass/Vol] 31.8 g/dL Normal 30.5-36.0 [facility] MCV (RBC) [Entitic vol] 100.6 fL High 80.0-100.0 [facility] Platelet mean volume (Bld) [Entitic vol] 9.4 fL Normal 9.0-12.7 [facility] Platelets (Bld) [#/Vol] 156 10*3/uL Normal 150-400 [facility] RBC (Bld) [#/Vol] 3.19 10*6/uL Low 4.20-6.00 [facility] WBC (Bld) [#/Vol] 8.65 10*3/uL Normal 3.70-11.00 [facility] CONSULT PROGon 11-25-2018 CONSULT PROG HNO ID: [id number] Author: Elsa Kaur Service: General Surgery Author Type: Physician Legal Mediator Type: Consult Progress Note Filed: 11/25/2018 9:35 AM Note Text: Attestation signed by Zoila Slater at 11/25/2018 11:22 AM [facility] STAFF PHYSICIAN NOTE OF PERSONAL INVOLVEMENT IN CARE Feels well with no c/o pain or nausea BM reported Abd soft, reducible hernia AXR with cont dilated loops Check SBFT I have reviewed the documentation above obtained and documented by the Physician Legal Mediator and have reviewed and updated the problem list as appropriate. I have personally performed a face to face assessment of the patient and I have discussed the case and management of the patient's care. Zoila Slater MD SURGICAL SERVICES POSTOP CONSULT PROGRESS NOTE SERVICE DATE: 11/25/2018 SERVICE TIME: 9:32 AM CONSULTING SERVICE: General surgery Subjective INTERVAL HISTORY OF PRESENT ILLNESS: Patient states that he does not have pain. Denies flatus. +BM this AM per nursing documentation. Current Facility-Administere d Medications Medication Dose Route Frequency - LORazepam 0.5 mg tab(s) (ATIVAN) 0.5 mg ORAL q 8 H PRN - diazepam 20 mg rectal gel (DIASTAT) 20 mg RECTAL PRN - lamoTRIgine 400 mg tab(s) (LaMICtal) 400 mg ORAL DAILY - lamoTRIgine 600 mg tab(s) (LaMICtal) 600 mg ORAL AT BEDTIME - levETIRAcetam 1,500 mg tab(s) (KEPPRA) 1,500 mg ORAL BID - primidone 250 mg tab(s) (MYSOLINE) 250 mg ORAL DAILY - primidone 375 mg tab(s) (MYSOLINE) 375 mg ORAL AT BEDTIME - finasteride 5 mg tab(s) (PROSCAR) 5 mg ORAL DAILY - tamsulosin ER 0.4 mg cap(s) (FLOMAX) 0.4 mg ORAL BID - HYDROcodone 5 mg - acetaminophen 325 mg tablet (NORCO) 1 tablet ORAL q 6 H PRN - heparin 5,000 Units injection 5,000 Units SUBCUTANEOUS q 12 H - ondansetron 4 mg tab(s) (ZOFRAN) 4 mg ORAL q 6 H PRN Or - ondansetron (PF) 4 mg injection (ZOFRAN) 4 mg INTRAVENOUS q 6 H PRN - acetaminophen 650 mg tab(s) (TYLENOL) 650 mg ORAL q 6 H PRN - lacosamide 150 mg tab(s) (VIMPAT) 150 mg ORAL BID - dextrose 5% in NaCl 0.45% with 20 mEq/L KCl iv infusion 100 mL/hr INTRAVENOUS CONTINUOUS Objective PHYSICAL EXAM: BP 116/65 Pulse 79 Temp (Src) 98.1 (Oral) Resp 17 SpO2 95% O2 Therapy: Room Air Physical Exam Performed GENERAL: Alert, no distress, cooperative SKIN: Skin color, texture, turgor normal. No rashes or lesions. ABDOMEN: Abdomen soft, non-tender, BS present, ventral hernia and vertical abdominal scar Intake/Output Summary (Last 24 hours) at 11/25/2018 0854 Last data filed at 11/25/2018 0656 Gross per 24 hour Intake 2500 ml Output 2050 ml Net 450 ml DATA: Diagnostic tests reviewed for today's visit: Most recent labs and imaging results. CBC, Coags, BMP, Mg, Phos Recent Labs 11/25/18 0530 11/24/18 0455 11/23/18 0436 11/22/18 1424 WBC 8.65 10.79 9.96 14.07* HB 10.2* 10.6* 11.5* 12.7* HCT 32.1* 33.2* 35.7* 39.9 PLT 156 163 191 251 NA 140 140 144 146* K 4.0 3.8 4.0 4.2 CHLOR 104 103 105 105 CO2 25 24 27 29 BUN 9 20 30* 30* CREAT 0.97 0.98 1.18 1.39* GLUC 108* 109* 93 108* CA 8.5 8.3* 8.8 9.7 MG -- -- -- 1.8 P -- -- -- 3.6 X-ray abd/pel 11/25/18 IMPRESSION: 1. ?Dilated loops of small bowel measuring up to 4.3 cm minimally decreased from prior examination. 2. ?No free intraperitoneal air. 3. ?Gastric drainage tube with tip in the fundus of the stomach. ? Anastomotic sutures noted within the left hemiabdomen. Impression/Recommend ations Patient Active Hospital Problem List: Small bowel obstruction due to adhesions (HCC) (04/26/2014) Intellectual disability (04/26/2014) Seizure (HCC) (11/22/2018) Urinary retention (11/24/2018) -continue NGT and NPO -plan discussed with hospital medicine, RN and attending surgeon SIGNATURE: Elsa Kaur PA-C PATIENT NAME: Amol Taylor DATE: November 25, 2018 TIME: 8:54 AM PAGER/CONTACT #: [phone] [facility] PROGRESSon 11-25-2018 PROGRESS HNO ID: [id number] Author: Debby Saucedo Service: Hospital Medicine Author Type: Physician Type: Progress Notes Filed: 11/25/2018 9:19 PM Note Text: SERVICE DATE: 11/25/2018 SERVICE TIME: 9:19 PM HOSPITAL MEDICINE PROGRESS NOTE NIGHT AND WEEKEND COVERAGE: Days: [phone], please page me for patient issues. Nights: [phone], please page [facility] Hospitalist Night coverage pager [phone] HPI SUBJECTIVE Interval Events: No Change no pain SBFT - contrast passing to colon OBJECTIVE BP 120/68 Pulse 74 Temp (Src) 98.1 (Oral) Resp 20 SpO2 97% O2 Therapy: Room Air Physical Exam Performed: GENERAL: no distress HEART: rrr LUNGS: cta b ABDOMEN: soft, nt EXTREMITY: no edema Lines, Drains, and Airways Line Peripheral 11/22/18 1325 Admission to Hospital Right Antecubital 22 Gauge 3 days Drain Indwelling Urinary Catheter 11/23/18 1806 Assessment Coude 16 Fr 2 days GI Feed 11/24/18 0009 Assessment Gastric Left Naris 1 day Reviewed lines, drains, AND airways. Need to be continued Y Medications: Reviewed Diagnostic tests reviewed: Most recent labs and imaging results. ASSESSMENT AND PLAN Active Hospital Problems as of 11/25/2018 Noted - Resolved Hospital * (Principal) Small bowel obstruction due to adhesions (HCC) 04/26/2014 - Present Current Assessment AND Plan Assessment: Transferred from [facility] to [place] per family request CT abdomen/pelvis (11/22/18, OSH): mid distal small bowel obstruciton likely due to adhesion at site of prior small bowel-small bowel anastomosis NGT placed at outside hospital PLAN: Serial KUBs NPO except meds IVF, monitor for signs of fluid overload NGT to [facility] Surgery consulted Urinary retention 11/24/2018 - Present Current Assessment AND Plan Assessment: Per sister, has a habit of holding urine, and would urinate a lot in the morning PLAN: Keep Will catheter for now Seizure (HCC) 11/22/2018 - Present Current Assessment AND Plan Assessment: Chronic, stable PLAN: Continue home meds Fall/seizure precautions Intellectual disability 04/26/2014 - Present Medication and Non-Pharmacologic VTE Prophylaxis/Anticoag ulants Anticoagulant AND Antiplatelet Medications (From admission, onward) Start Dose Route Frequency Ordered Stop 11/22/18 1400 heparin 5,000 Units injection (Medical Risk Categories) 5,000 Units SUBCUTANEOUS EVERY 12 HOURS 11/22/18 1356 -- 11/22/18 1400 vte non-pharmacologic prophylaxis - none indicated (ks,oh) 11/22/18 1400 activity - mobilize patient ([place]) VTE Prophylaxis: VTE prophylaxis appropriate Plan of care discussed with: Provider, RN, Patient SIGNATURE: Debby Saucedo MD PATIENT NAME: Amlo Taylor DATE: November 25, 2018 TIME: 9:19 PM PAGER/CONTACT #: [phone] [facility] PROGRESS HNO ID: [id number] Author: Ronan ([employer] [place] Service: Radiology Author Type: Threading Machine Setter Type: Progress Notes Filed: 11/25/2018 8:13 AM Note Text: Radiology Service Progress Note PATIENT NAME: Amol Taylor DATE OF SERVICE: November 25, 2018 TIME: 8:13 AM PATIENT IDENTITY VERIFICATION COMPLETED USING TWO (2) METHODS: Name and Date of confirmed by patient verbally. PATIENT GENDER DATA: Male PATIENT RELEVANT IMPLANT DATA REVIEWED: Not Applicable RADIOLOGY DEPARTMENT: General X-ray: Exam(s) Completed: Abdomen X-Ray Abdomen PERIPHERAL IV DATA: Not applicable SIGNED BY: Maday Cheatham RT November 25, 2018 8:13 AM [facility] XR ABD 2V SUPINE W UPR/DECUB /CTLon 11-25-2018 XR ABD 2V SUPINE W UPR/DECUB/CTL * * *Final Report* * * DATE OF EXAM: Nov 25 2018 8:17AM VHX [id number] - XR ABD 2V SUPINE W UPR/DECUB/CTL / PROCEDURE REASON: Followup Ileus SBO * * * * Physician Interpretation * * * * FLAT AND UPRIGHT/DECUBITUS FILM OF THE ABDOMEN, 2 VIEWS 11/25/2018 CLINICAL INFORMATION: Followup Ileus SBO. TECHNIQUE: Supine and left lateral decubitus views, 4 image(s) COMPARISON: Radiograph 11/24/2018 RESULT: See impression. IMPRESSION: 1. Dilated loops of small bowel measuring up to 4.3 cm minimally decreased from prior examination. 2. No free intraperitoneal air. 3. Gastric drainage tube with tip in the fundus of the stomach. Anastomotic sutures noted within the left hemiabdomen. Sales Performance Manager: FERNANDA Transcribe Date/Time: Nov 25 2018 8:35A Dictated by : ANASTACIO PERKINS MD This examination was interpreted and the report reviewed and electronically signed by: ANASTACIO PERKINS MD on Nov 25 2018 8:37AM EST [id number] [facility] XR SMALL BOWEL SERIESon 11-04 XR SMALL BOWEL SERIES * * *Final Report* * * DATE OF EXAM: Nov 25 2018 3:52PM VHX 5383 - XR SMALL BOWEL SERIES / PROCEDURE REASON: SBO intermittent or low-grade suspected * * * * Physician Interpretation * * * * XR SMALL BOWEL SERIES PROVIDED HISTORY: SBO intermittent or low-grade suspected COMPARISON: 08/09/2016 TECHNIQUE: Fluoroscopic Radiation Summary: Plane A, Air Kerma: 9.4 mGy Dose Area Product (DAP): 0.0 mGy*cmS2 Fluoro time: 0:30 min:sec RESULT: Contrast was administered via NG tube into the stomach. Duodenum is nondistended. Contrast opacifies the jejunum. Jejunal loops are mildly dilated measuring up to 4.3 cm. Slight fold thickening is also noted. Contrast travels into the ileum and colon within 60 minutes. Nondistended loops of ileum are noted. No inflammation is identified within the terminal ileum. No bowel obstruction is seen IMPRESSION: Nonspecific dilatation of much of the jejunal loops suggestive of inflammation with mild fold thickening also present. Contrast enters the colon within one hour Sales Performance Manager: [facility] Transcribe Date/Time: Nov 25 2018 4:58P Dictated by : LEONEL DE SANTIAGO MD This examination was interpreted and the report reviewed and electronically signed by: LEONEL DE SANTIAGO MD on Nov 25 2018 5:23PM EST [id number] CN Normal [facility] Basic Metabolic Panlon 11-24 Anion gap [Moles/Vol] 13 mmol/L Normal 9-18 [facility] Calcium [Mass/Vol] 8.3 mg/dL Low 8.5-10.2 [facility] Chloride [Moles/Vol] 103 mmol/L Normal 97-105 [facility] CO2 [Moles/Vol] 24 mmol/L Normal 22-30 [facility] Creatinine [Mass/Vol] 0.98 mg/dL Normal 0.73-1.22 [facility] eGFR- Amer. >60 Normal [facility] GFR/1.73 sq M predicted among non-blacks MDRD (S/P/Bld) [Vol rate/Area] mL/min/{1.73_m2} Normal [facility] Comment on above: Result Comment: eGFR (Estimated GFR) Units of measure: mL/min/1.73 meters squared eGFR is derived from the reexpressed MDRD Study equation using the following parameters: serum creatinine, age, gender and race. The creatinine assay has been calibrated to be traceable to IDMS. An eGFR <60 mL/min/1.73m2 for >3 months is consistent with chronic kidney disease. Refer to KDOQI guidelines for clinical interpretation. In patients with unstable renal function, e.g. those with acute kidney injury, the eGFR may not accurately reflect actual GFR. Glucose [Mass/Vol] 109 mg/dL High 74-99 [facility] Comment on above: Result Comment: The [place] Diabetes Association (ADA) provides guidance for cutoff values for fasting glucose and random glucose. The ADA defines fasting as no caloric intake for at least 8 hours. Fasting plasma glucose results between 100 to 125 mg/dL indicate increased risk for diabetes (prediabetes). Fasting plasma glucose results greater than or equal to 126 mg/dL meet the criteria for diagnosis of diabetes. In the absence of unequivocal hyperglycemia, results should be confirmed by repeat testing. In a patient with classic symptoms of hyperglycemia or hyperglycemic crisis, random plasma glucose results greater than or equal to 200 mg/dL meet the criteria for diagnosis of diabetes. Reference: Standards of Medical Care in Diabetes 2016, [place] [employer]. Diabetes Care. 2016.39(Suppl 1). Potassium [Moles/Vol] 3.8 mmol/L Normal 3.7-5.1 [facility] Sodium [Moles/Vol] 140 mmol/L Normal 136-144 [facility] Urea nitrogen [Mass/Vol] 20 mg/dL Normal 9-24 [facility] CBCon 11-24-2018 Absolute nRBC <0.01 Normal <0.01 [facility] Erythrocyte distribution width (RBC) [Ratio] 12.2 % Normal 11.5-15.0 [facility] Hematocrit (Bld) [Volume fraction] 33.2 % Low 39.0-51.0 [facility] Hemoglobin (Bld) [Mass/Vol] 10.6 g/dL Low 13.0-17.0 [facility] MCH (RBC) [Entitic mass] 32.4 pG Normal 26.0-34.0 [facility] MCHC (RBC) [Mass/Vol] 31.9 g/dL Normal 30.5-36.0 [facility] MCV (RBC) [Entitic vol] 101.5 fL High 80.0-100.0 [facility] Platelet mean volume (Bld) [Entitic vol] 9.1 fL Normal 9.0-12.7 [facility] l Platelets (Bld) [#/Vol] 163 10*3/uL Normal 150-400 [facility] RBC (Bld) [#/Vol] 3.27 10*6/uL Low 4.20-6.00 [facility] WBC (Bld) [#/Vol] 10.79 10*3/uL Normal 3.70-11.00 [facility] CONSULT PROGon 11-24-2018 CONSULT PROG HNO ID: [id number] Author: Wellington Morris III Service: General Surgery Author Type: Physician Type: Consult Progress Note Filed: 11/24/2018 7:30 PM Note Text: GENERAL SURGERY CONSULT PROGRESS NOTE SERVICE DATE: 11/24/2018 SERVICE TIME: 10:30 AM PRIMARY CARE PHYSICIAN: Caroline Cochran MD Subjective CHIEF COMPLAINT: Abdominal pain HPI: This is a 63 year old male who was admitted with abdominal pain and bloating now reports improvement with the abdominal pain. PAST MEDICAL HISTORY Diagnosis Date - Mental retardation - Nontoxic uninodular goiter stable - Seizure disorder (HCC) follows with neuro Kelton Hagen PAST SURGICAL HISTORY Procedure Laterality Date - INSERT PICC 05/11/2014 - LAP SM BOWEL RESECTION W/ANASTOMOSIS, SNGL 10/2013 fascia closed, skin open for SBO - MIDLINE INSERTION/CONSULT 05/04/2014 - MIDLINE INSERTION/CONSULT 08/08/2016 - PAST SURGICAL HISTORY OF 7 months old abd surgery - PAST SURGICAL HISTORY OF fracture clavicle - PAST SURGICAL HISTORY OF VAGAL NERVE STIMULATOR for seizure Px - PAST SURGICAL HISTORY OF 05/05/14 Exploratory laparotomy, small bowel resection and anastomosis , extensive lysis of adhesions FAMILY HISTORY Problem Relation Age of Onset - Ischemic Heart Disease Mother - other (Thyroid Ca) Mother - other (Multiple Myeloma) Mother - other (DM) Mother - other (htn) Mother - other (Lung Ca) Father smoker - other (A fib) Brother - other (Heart attack) Brother - other (HTN) Sister - other (DM) Sister - other (leukemia) Maternal Uncle - other (pancreatic Ca) Maternal Aunt - Ischemic Heart Disease Maternal Grandfather - Alzheimer's Disease Maternal Grandmother - other (HTN) Maternal Grandmother - other (dm) Paternal Grandmother Social History Tobacco Use - Smoking status: Never Smoker - Smokeless tobacco: Never Used Substance Use Topics - Alcohol use: No - Drug use: No Medications Prior to Admission: levETIRAcetam (KEPPRA) 1,000 mg tablet Take 1,500 mg by mouth twice daily. Disp: Rfl: 08/07/2016 at 0600 lacosamide (VIMPAT) 150 mg tab Take by mouth twice daily. 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 Disp: Rfl: Unknown at Unknown time tamsulosin ER (FLOMAX) 0.4 mg cp24 Take 1 capsule by mouth once daily. 30 minutes after the same meal each day. (Patient taking differently: Take 0.4 mg by mouth twice daily. 30 minutes after the same meal each day.) Disp: 90 capsule Rfl: 4 08/07/2016 at 0600 finasteride (PROSCAR) 5 mg tablet Take 1 tablet by mouth once daily. Disp: 90 tablet Rfl: 08/07/2016 at 0600 calcium carbonate (CALCIUM 600) 600 mg (1,500 mg) tab Take 1 tablet by mouth twice daily. (Patient taking differently: Take 1,500 mg by mouth twice daily. Chewable gummie.) Disp: 180 tablet Rfl: 3 Loperamide HCl (IMODIUM) 2 mg tab Take 1 tablet by mouth as needed (Patient takes two capsules on onset, one capsule after each loose stool and up to 4 in 24 hours). Disp: 120 tablet Rfl: 3 Unknown at Unknown time inulin-chromium picolinate (FIBER SELECT GUMMIES) 2-100 gram-mcg chew Patient takes 5mg gummies, once gummy twice daily Disp: 180 tablet Rfl: 3 Unknown at Unknown time Ibuprofen 200 mg cap Take 2 capsules by mouth every 4 hours (for headaches, muscle pain or fever over 100 degrees) Disp: 180 capsule Rfl: 3 Unknown at Unknown time HYDROcodone-acetamin ophen (NORCO) 5-325 mg per tablet 1 tablet every 6 hours as needed. Disp: Rfl: Unknown at Unknown time ondansetron orally disintegrating (ZOFRAN ODT) 4 mg disintegrating tablet Take 1 tablet by mouth every 8 hours as needed. Disp: 20 tablet Rfl: 0 Unknown at Unknown time lorazepam(ATIVAN 0.5 MG TAB) Take one(1) tablet every eight(8) hours as needed for seizures Disp: Rfl: 0 08/06/2016 at 1800 lamotrigine(LAMICTAL 200 MG TAB) take two 2 tablets in am and three(3)tablets in pm Disp: Rfl: 0 08/07/2016 at 0600 PRIMIDONE 250 MG TAB Take one(1)tablet in am and take one and one-half(1AND1/2) tablets in pm. Disp: Rfl: 0 08/07/2016 at 0600 ALLERGIES Allergen Reactions - Bleach [Other] - Clindamycin Rash - Penicillins Swelling Objective PHYSICAL EXAM: GENERAL: Alert, no distress, cooperative SKIN: Skin color, texture, turgor normal. No rashes or lesions. HEAD/SINUSES: No significant findings EYES: PERRLA, EOMI NOSE: Nares normal. Septum midline. NECK: No jugulovenous distention, No carotid bruits, Carotid pulse normal contour, Supple LUNGS: Lungs clear to auscultation, Good diaphragmatic excursion CARDIAC: Normal S1 and S2; no rubs, murmurs, or gallops ABDOMEN: Abdomen soft, non-tender, BS normal, No masses or organomegaly EXTREMITIES: Extremities normal, no deformities, edema, clubbing or skin discoloration. Good capillary refill., No ulcers BP 122/63 Pulse 86 Temp (Src) 100 (Oral) Resp 17 SpO2 95% O2 Therapy: Room Air DATA: Diagnostic tests reviewed for today's visit: DATE OF EXAM: Nov 23 2018 ?1:07PM ? XR ABDOMEN 1V SUPINE ? PROCEDURE REASON: SBO high-grade suspected Indication: ?Small bowel obstruction Comparison: ?X-ray abdomen 11/22/2018 3 supine x-rays of the abdomen are obtained. ?Again noted are multiple dilated loops of small bowel. ?No hepatomegaly or splenomegaly. ?There is IV contrast in the bladder. ?An NG tube is present with the tip in the stomach. Impression: Unchanged small bowel dilatation Sales Performance Manager: FERNANDA ? Transcribe Date/Time: Nov 23 2018 ?2:23P Dictated by : LIBRA GARCIA MD Assessment/Plan Small bowel obstruction due to adhesions and reducible incisional hernia ? Continue NGT Continue NPO NGT needs advanced 4-5 cm ? Repeat AXR this AM Medication and Non-Pharmacologic VTE Prophylaxis/Anticoag ulants Anticoagulant AND Antiplatelet Medications (From admission, onward) Start Dose Route Frequency Ordered Stop 11/22/18 1400 heparin 5,000 Units injection (Medical Risk Categories) 5,000 Units SUBCUTANEOUS EVERY 12 HOURS 11/22/18 1356 -- 11/22/18 1400 vte non-pharmacologic prophylaxis - none indicated (ks,mo) 11/22/18 1400 activity - mobilize patient (ks,mo) VTE Prophylaxis: VTE prophylaxis appropriate SIGNATURE: Wellington Morris III, MD PATIENT NAME: Amol Taylor DATE: November 24, 2018 TIME: 7:19 AM PAGER/CONTACT #: [facility] NURSING PROGon 11-24-2018 NURSING PROG HNO ID: [id number] Author: Ranjana BeltreRn) Ramirez, RN Service: Nursing Author Type: Registered Nurse Type: Nursing Progress Note Filed: 11/24/2018 9:08 PM Note Text: Nursing Progress Note Patient Name: Amol Taylor Patient Location: / Daily Note: Following page sent to cross coverage: Re: Room 304, Amol Taylor. Pt has a vagus nerve stimulator. Can we have an order for continuous pulse ox to keep an eye on his HR in the event that he has a seizure? Thank you, Shae Guzmán, RN [phone] Orders received This note was completed by: Ranjana Guzmán RN [facility] NURSING PROG HNO ID: [id number] Author: Bel Cabrera (Rn) ARA Ye Service: Nursing Author Type: Registered Nurse Type: Nursing Progress Note Filed: 11/24/2018 8:57 PM Note Text: Nursing Progress Note Patient Name: Amol Taylor Patient Location: / 1930- Pt transferred into recliner chair late in afternoon with 2 staff mod. Assist with pt taking a few steps. Earlier xrays completed of abd as ordered. NG tube advanced approx. 3cm with bile color return noted in Tubing. Pt tolerated well. Pt has denied any abd pain or nausea all day. Stated yes that he was passing flatus. This note was completed by: Bel Ye RN [facility] PROGRESSon 11-24-2018 PROGRESS HNO ID: [id number] Author: Yolanda Gonzalez (Rt) Service: Radiology Author Type: Threading Machine Setter Type: Progress Notes Filed: 11/24/2018 3:01 PM Note Text: Radiology Service Progress Note PATIENT NAME: Amol Taylor DATE OF SERVICE: November 24, 2018 TIME: 3:01 PM PATIENT IDENTITY VERIFICATION COMPLETED USING TWO (2) METHODS: Name and Date of confirmed by patient verbally. PATIENT GENDER DATA: Male PATIENT RELEVANT IMPLANT DATA REVIEWED: Not Applicable RADIOLOGY DEPARTMENT: General X-ray: Exam(s) Completed: Abdomen X-Ray Abdomen PERIPHERAL IV DATA: Not applicable SIGNED BY: RT Selvin November 24, 2018 3:01 PM [facility] PROGRESS HNO ID: [id number] Author: Toshia Vaughn (Rt) Service: Radiology Author Type: Threading Machine Setter Type: Progress Notes Filed: 11/24/2018 10:14 AM Note Text: Radiology Service Progress Note PATIENT NAME: Amol Taylor DATE OF SERVICE: November 24, 2018 TIME: 10:14 AM PATIENT IDENTITY VERIFICATION COMPLETED USING TWO (2) METHODS: Name and Date of confirmed by patient verbally and Name and Date of confirmed by identification band. PATIENT GENDER DATA: Male PATIENT RELEVANT IMPLANT DATA REVIEWED: Not Applicable RADIOLOGY DEPARTMENT: General X-ray: Exam(s) Completed: Abdomen X-Ray Abdomen PERIPHERAL IV DATA: Not applicable SIGNED BY: Yolanda LORA (R) November 24, 2018 10:14 AM [facility] PROGRESS HNO ID: [id number] Author: Debby Saucedo Service: Hospital Medicine Author Type: Physician Type: Progress Notes Filed: 11/24/2018 9:38 AM Note Text: SERVICE DATE: 11/24/2018 SERVICE TIME: 9:37 AM HOSPITAL MEDICINE PROGRESS NOTE NIGHT AND WEEKEND COVERAGE: Days: [phone], please page me for patient issues. Nights: [phone], please page [facility] Hospitalist Night coverage pager [phone] HPI SUBJECTIVE Interval Events: denies pain no nausea, no appetite urinary retention yesterday -= will inserted OBJECTIVE BP 115/60 Pulse 84 Temp (Src) 98.2 (Oral) Resp 20 SpO2 92% O2 Therapy: Room Air Physical Exam Performed: GENERAL: no distress HEART: rrr LUNGS: cta b ABDOMEN: soft, less distended EXTREMITY: no edema Lines, Drains, and Airways Line Peripheral 11/22/18 1325 Admission to Hospital Right Antecubital 22 Gauge 1 day Drain GI Feed 11/24/18 0009 Assessment Gastric Left Naris less than 1 day Indwelling Urinary Catheter 11/23/18 1806 Assessment Coude 16 Fr less than 1 day Reviewed lines, drains, AND airways. Need to be continued Y Medications: Reviewed Diagnostic tests reviewed: Most recent imaging Most recent labs ASSESSMENT AND PLAN Active Hospital Problems as of 11/24/2018 Noted - Resolved Hospital * (Principal) Small bowel obstruction due to adhesions (HCC) 04/26/2014 - Present Current Assessment AND Plan Assessment: Transferred from [facility] to [facility] per family request CT abdomen/pelvis (11/22/18, OSH): mid distal small bowel obstruciton likely due to adhesion at site of prior small bowel-small bowel anastomosis NGT placed at outside hospital PLAN: Serial KUBs NPO except meds IVF, monitor for signs of fluid overload NGT to [facility] Surgery consulted Urinary retention 11/24/2018 - Present Current Assessment AND Plan Assessment: Per sister, has a habit of holding urine, and would urinate a lot in the morning PLAN: Keep Will catheter for now Seizure (HCC) 11/22/2018 - Present Current Assessment AND Plan Assessment: Chronic, stable PLAN: Continue home meds Fall/seizure precautions Intellectual disability 04/26/2014 - Present Medication and Non-Pharmacologic VTE Prophylaxis/Anticoag ulants Anticoagulant AND Antiplatelet Medications (From admission, onward) Start Dose Route Frequency Ordered Stop 11/22/18 1400 heparin 5,000 Units injection (Medical Risk Categories) 5,000 Units SUBCUTANEOUS EVERY 12 HOURS 11/22/18 1356 -- 11/22/18 1400 vte non-pharmacologic prophylaxis - none indicated (ks,mo) 11/22/18 1400 activity - mobilize patient (ks,mo) VTE Prophylaxis: VTE prophylaxis appropriate Plan of care discussed with: Provider, RN, Patient SIGNATURE: Debby Saucedo MD PATIENT NAME: Amol Taylor DATE: November 24, 2018 TIME: 9:37 AM PAGER/CONTACT #: [phone] [facility] XR ABDOMEN 1V SPECIFYon 11-04 XR ABDOMEN 1V SPECIFY * * *Final Report* * * DATE OF EXAM: Nov 24 2018 3:00PM VHX 5288 - XR ABDOMEN 1V SPECIFY / PROCEDURE REASON: Followup Ileus SBO * * * * Physician Interpretation * * * * ABDOMEN X-RAY TECHNIQUE: 2 images: Upright view COMPARISON: Earlier the same day INDICATION: Follow-up ileus, SBO RESULT: Enteric tube is in situ with tip projecting over the proximal stomach and side port at or just distal to the GE junction. Air-fluid level within a distended (6 7 m diameter) small bowel loop in the left abdomen. Anatomic pelvis is beyond the imaging plane. - IMPRESSION: Similarly dilated small bowel loop in the left abdomen: Ileus versus obstruction. Enteric tube side port again projects in close proximity to the GE junction. For optimal placement, tube could be advanced several centimeters. Sales Performance Manager: FERNANDA Transcribe Date/Time: Nov 24 2018 5:09P Dictated by : SAVANA URIARTE MD This examination was interpreted and the report reviewed and electronically signed by: SAVANA URIARTE MD on Nov 24 2018 5:13PM EST [id number] CN [facility] XR ABDOMEN 1V SUPINEon 11-24 XR ABDOMEN 1V SUPINE * * *Final Report* * * DATE OF EXAM: Nov 24 2018 10:14AM VHX 5289 - XR ABDOMEN 1V SUPINE / PROCEDURE REASON: SBO high-grade suspected * * * * Physician Interpretation * * * * EXAMINATION: XR ABDOMEN 1V SUPINE HISTORY: ABDOMINAL DISTENTION AND PAIN SBO high-grade suspected. TECHNIQUE: XR ABDOMEN 1V SUPINE Laterality: NOT APPLICABLE Number of different views (projections): 1 M: XB_1 COMPARISON: 11/23/2018 RESULT: Multiple dilated loops of small bowel measuring up to 5.8 cm. An NG/OG tube is in place, tip in the stomach, proximal side-port near the GE junction. Gas is present in the rectum. Bowel anastomotic suture is scattered throughout the abdomen. No other significant abnormality. IMPRESSION: Small bowel dilation with gas present in the rectum, either early small bowel obstruction or ileus. Sales Performance Manager: FERNANDA Transcribe Date/Time: Nov 24 2018 11:44A Dictated by : DONNA RIVERA MD This examination was interpreted and the report reviewed and electronically signed by: DONNA RIVERA MD on Nov 24 2018 11:45AM EST [id number] Normal [facility] Basic Metabolic Panlon 11-23 Anion gap [Moles/Vol] 12 mmol/L Normal 9-18 [facility] Calcium [Mass/Vol] 8.8 mg/dL Normal 8.5-10.2 [facility] Chloride [Moles/Vol] 105 mmol/L Normal 97-105 [facility] CO2 [Moles/Vol] 27 mmol/L Normal 22-30 [facility] Creatinine [Mass/Vol] 1.18 mg/dL Normal 0.73-1.22 [facility] eGFR- Amer. >60 Normal [facility]ital GFR/1.73 sq M predicted among non-blacks MDRD (S/P/Bld) [Vol rate/Area] mL/min/{1.73_m2} [facility] Comment on above: Result Comment: eGFR (Estimated GFR) Units of measure: mL/min/1.73 meters squared eGFR is derived from the reexpressed MDRD Study equation using the following parameters: serum creatinine, age, gender and race. The creatinine assay has been calibrated to be traceable to IDMS. An eGFR <60 mL/min/1.73m2 for >3 months is consistent with chronic kidney disease. Refer to KDOQI guidelines for clinical interpretation. In patients with unstable renal function, e.g. those with acute kidney injury, the eGFR may not accurately reflect actual GFR. Glucose [Mass/Vol] 93 mg/dL Normal 74-99 [facility] Comment on above: Result Comment: The [place] Diabetes Association (ADA) provides guidance for cutoff values for fasting glucose and random glucose. The ADA defines fasting as no caloric intake for at least 8 hours. Fasting plasma glucose results between 100 to 125 mg/dL indicate increased risk for diabetes (prediabetes). Fasting plasma glucose results greater than or equal to 126 mg/dL meet the criteria for diagnosis of diabetes. In the absence of unequivocal hyperglycemia, results should be confirmed by repeat testing. In a patient with classic symptoms of hyperglycemia or hyperglycemic crisis, random plasma glucose results greater than or equal to 200 mg/dL meet the criteria for diagnosis of diabetes. Reference: Standards of Medical Care in Diabetes 2016, [place] Diabetes Association. Diabetes Care. 2016.39(Suppl 1). Potassium [Moles/Vol] 4.0 mmol/L Normal 3.7-5.1 [facility] Sodium [Moles/Vol] 144 mmol/L Normal 136-144 [facility] Urea nitrogen [Mass/Vol] 30 mg/dL High 9-24 [facility] CASE MGT INIT [facility] 2018 CASE MGT INIT [facility] HNO ID: [id number] Author: Niurka (Rn) ARA Briseno Service: Care Management Author Type: Registered Nurse Type: Care Mgt Initial Assessment Filed: 11/23/2018 3:42 PM Note Text: CARE MANAGEMENT: ASSESSMENT AND DISCHARGE PLAN SERVICE DATE: 11/23/2018 SERVICE TIME: 2:57 PM PRIMARY CARE PHYSICIAN: Caroline Cochran MD ADMISSION STATUS: Inpatient Needs Prior to Discharge: To Be Determined MEDICAL: Patient/Representati ve Stated Goals: per sister - return to [facility] Health Insurance: [facility] [employer] H[employer] SNP Medicaid Health Issues Impacting Discharge Plan: None Last Discharge Date: 08/14/16 Is this Within the Past 30 days? No Advance Directive: Current Advance Directive: Other Document: See Comment(pt has gasergiodianship papers in chart) In Chart: Yes Up To Date and Valid: Yes Health Literacy Assessment: Patient is unable to complete at this time due to pt MRDD Gaurdian is his sister Susan Smith. FUNCTIONAL AND COGNITIVE/BEHAVIORAL PRIOR TO ADMISSION: Baseline Mental Status: Alert AND Oriented, Person, Situation and Developmental Delay Functional Status: Dependent Does Patient Currently Receive Any Community Services or Home Care? None [facility] Equipment Prior to Admission: Wheelchair alf set up to accomidate Has the Patient Been in a Jail Facility in the Past 30 days? No SOCIAL: Living Arrangement: [facility] alf Lives With: from alf Financial Resources: Disabled Primary Contact: Extended Emergency Contact Information Primary Emergency Contact: Susan Smith Mobile Relation: Sister Supportive: Yes Other Important Patient Contacts: None Caregiver Assessment: Caregiver is ready, willing and able to meet the patient's needs as recommended by the inter-professional team? Yes Patient's transition needs and plan for meeting these needs: per Does the patient have an acute stroke diagnosis, or has the patient had a stroke during this admission? No Medicaiton Adherence: Patient is unable to complete at this time due to pt from alf. Are you interested in bedside delivery of your medications? No Food Concerns: In the Last Month, Have You had Trouble Getting Food? No trouble getting food During the Last Month, Have You Worried Whether Your Food Would Run Out Before You Had Enough Money to Buy More? No Is the Patient Psychosocially Complex? No ASSESSMENT AND PLAN: Medical Needs: 2 or more chronic diseases Psychosocial Needs: None FREEDOM OF CHOICE EXPLAINED: N/A POTENTIAL TRANSITION PLANS [facility] Spoke with pts Sister Susan Smith [phone]. Susan is pts guardian and the paperwork is in the EMR. Per sister plan is for to return to [facility]. The director there is Laura Rowan [phone]. The alf may be able to transport pt upon d/c . Pt uses a WC but can walk very short distances with assist and pivot transfer. Pt participates in a work program and may need a return to work paperwork. CM to follow SIGNATURE: Niurka Briseno RN PATIENT NAME: Amol Taylor DATE: November 23, 2018 TIME: 2:57 PM PAGER/CONTACT #: [phone] Normal [facility] CBCon 11-23-2018 Absolute nRBC <0.01 [facility]0.01 [facility] E[facility]th[facility] distribution width (RBC) [Ratio] 12.6 % Normal 11.5-15.0 [facility] Hematocrit (Bld) [Volume fraction] 35.7 % Low 39.0-51.0 [facility] Hemoglobin (Bld) [Mass/Vol] 11.5 g/dL Low 13.0-17.0 [facility] MCH (RBC) [Entitic mass] 32.5 pG Normal 26.0-34.0 [facility] MCHC (RBC) [Mass/Vol] 32.2 g/dL Normal 30.5-36.0 [facility] MCV (RBC) [Entitic vol] 100.8 fL High 80.0-100.0 [facility] Platelet mean volume (Bld) [Entitic vol] 9.2 fL Normal 9.0-12.7 [facility] l Platelets (Bld) [#/Vol] 191 10*3/uL Normal 150-400 [facility] RBC (Bld) [#/Vol] 3.54 10*6/uL Low 4.20-6.00 [facility] WBC (Bld) [#/Vol] 9.96 10*3/uL Normal 3.70-11.00 [facility] PROGRESSon 11-23-2018 PROGRESS HNO ID: [id number] Author: Toshia (Rt) Roderick Service: Radiology Author Type: Threading Machine Setter Type: Progress Notes Filed: 11/23/2018 1:04 PM Note Text: Radiology Service Progress Note PATIENT NAME: Amol Taylor DATE OF SERVICE: November 23, 2018 TIME: 1:04 PM PATIENT IDENTITY VERIFICATION COMPLETED USING TWO (2) METHODS: Name and Date of confirmed by patient verbally and Name and Date of confirmed by identification band. PATIENT GENDER DATA: Male PATIENT RELEVANT IMPLANT DATA REVIEWED: Not Applicable RADIOLOGY DEPARTMENT: General X-ray: Exam(s) Completed: Abdomen X-Ray Abdomen PERIPHERAL IV DATA: Not applicable SIGNED BY: Beena LORA (R) November 23, 2018 1:04 PM [facility] PROGRESS HNO ID: [id number] Author: Jaime BeltreRt) Joshua VILLALPANDO Service: Radiology Author Type: Threading Machine Setter Type: Progress Notes Filed: 11/23/2018 12:34 PM Note Text: Radiology Service Progress Note PATIENT NAME: Amol Taylor DATE OF SERVICE: November 23, 2018 TIME: 12:33 PM PATIENT IDENTITY VERIFICATION COMPLETED USING TWO (2) METHODS: Name and Date of confirmed by patient verbally and Name and Date of confirmed by identification band. PATIENT GENDER DATA: Female. status: : No status: NO. PATIENT RELEVANT IMPLANT DATA REVIEWED: Not Applicable RADIOLOGY DEPARTMENT: General X-ray: Exam(s) Completed: Chest X-Ray PERIPHERAL IV DATA: Not applicable SIGNED BY: Jaime Lewis II RT November 23, 2018 12:33 PM [facility] PROGRESS HNO ID: [id number] Author: Debby Saucedo Service: Hospital Medicine Author Type: Physician Type: Progress Notes Filed: 11/23/2018 11:01 AM Note Text: SERVICE DATE: 11/23/2018 SERVICE TIME: 11:00 AM HOSPITAL MEDICINE PROGRESS NOTE NIGHT AND WEEKEND COVERAGE: Days: [phone], please page me for patient issues. Nights: [phone], please page CC Hospitalist Night coverage pager [phone] HPI SUBJECTIVE Interval Events: No Change no abdominal pain OBJECTIVE BP 113/70 Pulse 102 Temp (Src) 97.7 (Oral) Resp 18 SpO2 93% O2 Therapy: Room Air Physical Exam Performed: GENERAL: no distress HEART: rrr LUNGS: cta b ABDOMEN: +incisional hernia, tympanitic EXTREMITY: no edema Lines, Drains, and Airways Line Peripheral 11/22/18 1325 Admission to Hospital Right Antecubital 22 Gauge less than 1 day Reviewed lines, drains, AND airways. Need to be continued Y Medications: Reviewed Diagnostic tests reviewed: Most recent imaging Most recent labs ASSESSMENT AND PLAN Active Hospital Problems as of 11/23/2018 Noted - Resolved Hospital * (Principal) Small bowel obstruction due to adhesions ([facility]) 04/26/2014 - Present Current Assessment AND Plan Assessment: Transferred from [facility] to [place] per family request CT abdomen/pelvis (11/22/18, OSH): mid distal small bowel obstruciton likely due to adhesion at site of prior small bowel-small bowel anastomosis NGT placed at outside hospital PLAN: Serial KUBs NPO except meds IVF, monitor for signs of fluid overload NGT to [facility] Surgery consulted Seizure ([facility]) 11/22/2018 - Present Current Assessment AND Plan Assessment: Chronic, stable PLAN: Continue home meds Fall/seizure precautions Intellectual disability 04/26/2014 - Present Medication and Non-Pharmacologic VTE Prophylaxis/Anticoag ulants Anticoagulant AND Antiplatelet Medications (From admission, onward) Start Dose Route Frequency Ordered Stop 11/22/18 1400 heparin 5,000 Units injection (Medical Risk Categories) 5,000 Units SUBCUTANEOUS EVERY 12 HOURS 11/22/18 1356 -- 11/22/18 1400 vte non-pharmacologic prophylaxis - none indicated (ks,oh) 11/22/18 1400 activity - mobilize patient (ks,mo) VTE Prophylaxis: VTE prophylaxis appropriate Plan of care discussed with: Provider, RN, Patient ; Sister POA SIGNATURE: Debby Saucedo MD PATIENT NAME: Amol Taylor DATE: November 23, 2018 TIME: 11:00 AM PAGER/CONTACT #: [phone] [facility] PROGRESS HNO ID: [id number] Author: Wellington Morris III Service: General Surgery Author Type: Physician Type: Progress Notes Filed: 11/23/2018 9:23 AM Note Text: GENERAL SURGERY CONSULT PROGRESS NOTE SERVICE DATE: 11/23/2018 SERVICE TIME: 9:20 AM PRIMARY CARE PHYSICIAN: Caroline Cochran MD Subjective CHIEF COMPLAINT: Abdominal pain HPI: This is a 63 year old male who denies abdominal pain this AM. NGT in place. Patient was sleeping comfortably in bed. No BM. PAST MEDICAL HISTORY Diagnosis Date - Mental retardation - Nontoxic uninodular goiter stable - Seizure disorder (HCC) follows with neuro Kelton Hagen PAST SURGICAL HISTORY Procedure Laterality Date - INSERT PICC 05/11/2014 - LAP SM BOWEL RESECTION W/ANASTOMOSIS, SNGL 10/2013 fascia closed, skin open for SBO - MIDLINE INSERTION/CONSULT 05/04/2014 - MIDLINE INSERTION/CONSULT 08/08/2016 - PAST SURGICAL HISTORY OF 7 months old abd surgery - PAST SURGICAL HISTORY OF fracture clavicle - PAST SURGICAL HISTORY OF VAGAL NERVE STIMULATOR for seizure Px - PAST SURGICAL HISTORY OF 05/05/14 Exploratory laparotomy, small bowel resection and anastomosis , extensive lysis of adhesions FAMILY HISTORY Problem Relation Age of Onset - Ischemic Heart Disease Mother - other (Thyroid Ca) Mother - other (Multiple Myeloma) Mother - other (DM) Mother - other (htn) Mother - other (Lung Ca) Father smoker - other (A fib) Brother - other (Heart attack) Brother - other (HTN) Sister - other (DM) Sister - other (leukemia) Maternal Uncle - other (pancreatic Ca) Maternal Aunt - Ischemic Heart Disease Maternal Grandfather - Alzheimer's Disease Maternal Grandmother - other (HTN) Maternal Grandmother - other (dm) Paternal Grandmother Social History Tobacco Use - Smoking status: Never Smoker - Smokeless tobacco: Never Used Substance Use Topics - Alcohol use: No - Drug use: No Medications Prior to Admission: levETIRAcetam (KEPPRA) 1,000 mg tablet Take 1,500 mg by mouth twice daily. Disp: Rfl: 08/07/2016 at 0600 lacosamide (VIMPAT) 150 mg tab Take by mouth twice daily. 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 Disp: Rfl: Unknown at Unknown time tamsulosin ER (FLOMAX) 0.4 mg cp24 Take 1 capsule by mouth once daily. 30 minutes after the same meal each day. (Patient taking differently: Take 0.4 mg by mouth twice daily. 30 minutes after the same meal each day.) Disp: 90 capsule Rfl: 4 08/07/2016 at 0600 finasteride (PROSCAR) 5 mg tablet Take 1 tablet by mouth once daily. Disp: 90 tablet Rfl: 08/07/2016 at 0600 calcium carbonate (CALCIUM 600) 600 mg (1,500 mg) tab Take 1 tablet by mouth twice daily. (Patient taking differently: Take 1,500 mg by mouth twice daily. Chewable gummie.) Disp: 180 tablet Rfl: 3 Loperamide HCl (IMODIUM) 2 mg tab Take 1 tablet by mouth as needed (Patient takes two capsules on onset, one capsule after each loose stool and up to 4 in 24 hours). Disp: 120 tablet Rfl: 3 Unknown at Unknown time inulin-chromium picolinate (FIBER SELECT GUMMIES) 2-100 gram-mcg chew Patient takes 5mg gummies, once gummy twice daily Disp: 180 tablet Rfl: 3 Unknown at Unknown time Ibuprofen 200 mg cap Take 2 capsules by mouth every 4 hours (for headaches, muscle pain or fever over 100 degrees) Disp: 180 capsule Rfl: 3 Unknown at Unknown time HYDROcodone-acetamin ophen (NORCO) 5-325 mg per tablet 1 tablet every 6 hours as needed. Disp: Rfl: Unknown at Unknown time ondansetron orally disintegrating (ZOFRAN ODT) 4 mg disintegrating tablet Take 1 tablet by mouth every 8 hours as needed. Disp: 20 tablet Rfl: 0 Unknown at Unknown time lorazepam(ATIVAN 0.5 MG TAB) Take one(1) tablet every eight(8) hours as needed for seizures Disp: Rfl: 0 08/06/2016 at 1800 lamotrigine(LAMICTAL 200 MG TAB) take two 2 tablets in am and three(3)tablets in pm Disp: Rfl: 0 08/07/2016 at 0600 PRIMIDONE 250 MG TAB Take one(1)tablet in am and take one and one-half(1AND1/2) tablets in pm. Disp: Rfl: 0 08/07/2016 at 0600 ALLERGIES Allergen Reactions - Bleach [Other] - Clindamycin Rash - Penicillins Swelling Objective PHYSICAL EXAM: GENERAL: Alert, no distress, cooperative SKIN: Skin color, texture, turgor normal. No rashes or lesions. HEAD/SINUSES: No significant findings BACK: Back symmetric, Normal curvature, ROM normal, No CVAT. LUNGS: Lungs clear to auscultation, Good diaphragmatic excursion CARDIAC: Normal S1 and S2; no rubs, murmurs, or gallops ABDOMEN: Positive findings: minimally distended, non tender without rebound or guarding; easily reducible incisional bulge EXTREMITIES: Extremities normal, no deformities, edema, clubbing or skin discoloration. Good capillary refill., No ulcers BP 113/70 Pulse 102 Temp (Src) 97.7 (Oral) Resp 18 SpO2 93% O2 Therapy: Room Air DATA: Diagnostic tests reviewed for today's visit: WBC (k/uL) Date Value 11/23/2018 9.96 RBC (m/uL) Date Value 11/23/2018 3.54 (L) Hemoglobin (g/dL) Date Value 11/23/2018 11.5 (L) Hematocrit (%) Date Value 11/23/2018 35.7 (L) MCV (fL) Date Value 11/23/2018 100.8 (H) MCH (pG) Date Value 11/23/2018 32.5 MCHC (g/dL) Date Value 11/23/2018 32.2 RDW-CV (%) Date Value 11/23/2018 12.6 Platelet Count (k/uL) Date Value 11/23/2018 191 MPV (fL) Date Value 11/23/2018 9.2 Glucose (mg/dL) Date Value 11/23/2018 93 BUN (mg/dL) Date Value 11/23/2018 30 (H) Creatinine (mg/dL) Date Value 11/23/2018 1.18 Sodium (mmol/L) Date Value 11/23/2018 144 Potassium (mmol/L) Date Value 11/23/2018 4.0 Chloride (mmol/L) Date Value 11/23/2018 105 CO2 (mmol/L) Date Value 11/23/2018 27 Protein, Total (g/dL) Date Value 11/22/2018 7.5 Albumin (g/dL) Date Value 11/22/2018 4.4 Calcium (mg/dL) Date Value 11/23/2018 8.8 Alkaline Phosphatase (U/L) Date Value 11/22/2018 127 (H) Bilirubin, Total (mg/dL) Date Value 11/22/2018 0.4 AST (U/L) Date Value 11/22/2018 12 (L) ALT (U/L) Date Value 11/22/2018 12 Cholesterol, Total (mg/dL) Date Value 07/23/2014 175 Triglyceride (mg/dL) Date Value 07/23/2014 57 Assessment/Plan Small bowel obstruction due to adhesions and reducible incisional hernia Continue NGT and NPO Repeat AXR this AM Medication and Non-Pharmacologic VTE Prophylaxis/Anticoag ulants Anticoagulant AND Antiplatelet Medications (From admission, onward) Start Dose Route Frequency Ordered Stop 11/22/18 1400 heparin 5,000 Units injection (Medical Risk Categories) 5,000 Units SUBCUTANEOUS EVERY 12 HOURS 11/22/18 1356 -- 11/22/18 1400 vte non-pharmacologic prophylaxis - none indicated (ks,oh) 11/22/18 1400 activity - mobilize patient (ks,mo) VTE Prophylaxis: VTE prophylaxis appropriate SIGNATURE: Wellington Morris III, MD PATIENT NAME: Amol Taylor DATE: November 23, 2018 TIME: 9:20 AM PAGER/CONTACT #: [facility] XR ABDOMEN 1V SUPINEon 11-23 XR ABDOMEN 1V SUPINE * * *Final Report* * * DATE OF EXAM: Nov 23 2018 1:07PM VHX [id number] - XR ABDOMEN 1V SUPINE / PROCEDURE REASON: SBO high-grade suspected * * * * Physician Interpretation * * * * Indication: Small bowel obstruction Comparison: X-ray abdomen 11/22/2018 3 supine x-rays of the abdomen are obtained. Again noted are multiple dilated loops of small bowel. No hepatomegaly or splenomegaly. There is IV contrast in the bladder. An NG tube is present with the tip in the stomach. Impression: Unchanged small bowel dilatation Sales Performance Manager: PSCB Transcribe Date/Time: Nov 23 2018 2:23P Dictated by : LIBRA GARCIA MD This examination was interpreted and the report reviewed and electronically signed by: LIBRA GARCIA MD on Nov 23 2018 2:25PM EST [id number] Normal [facility] CBCon 11-22-2018 Absolute nRBC <0.01 Normal <0.01 [facility]th[facility] distribution width (RBC) [Ratio] 12.6 % Normal 11.5-15.0 [facility] Hematocrit (Bld) [Volume fraction] 39.9 % Normal 39.0-51.0 [facility] Hemoglobin (Bld) [Mass/Vol] 12.7 g/dL Low 13.0-17.0 [facility] MCH (RBC) [Entitic mass] 31.8 pG Normal 26.0-34.0 [facility] MCHC (RBC) [Mass/Vol] 31.8 g/dL Normal 30.5-36.0 [facility] MCV (RBC) [Entitic vol] 100.0 fL Normal 80.0-100.0 [facility] Platelet mean volume (Bld) [Entitic vol] 9.2 fL Normal 9.0-12.7 [facility] Platelets (Bld) [#/Vol] 251 10*3/uL Normal 150-400 [facility] RBC (Bld) [#/Vol] 3.99 10*6/uL Low 4.20-6.00 [facility] WBC (Bld) [#/Vol] 14.07 10*3/uL High 3.70-11.00 [facility] Comp Metabolic Panelon 11-22 Albumin [Mass/Vol] 4.4 g/dL Normal 3.9-4.9 [facility]spital ALP [Catalytic activity/Vol] 127 U/L High 38-113 [facility] ALT [Catalytic activity/Vol] 12 U/L Normal 10-54 [facility] Anion gap [Moles/Vol] 12 mmol/L Normal 9-18 [facility] AST [Catalytic activity/Vol] 12 U/L Low 14-40 [facility] Bilirubin [Mass/Vol] 0.4 mg/dL Normal 0.2-1.3 [facility] Calcium [Mass/Vol] 9.7 mg/dL Normal 8.5-10.2 [facility]sp[facility] Chloride [Moles/Vol] 105 mmol/L Normal 97-105 [facility] CO2 [Moles/Vol] 29 mmol/L Normal 22-30 [facility] Creatinine [Mass/Vol] 1.39 mg/dL High 0.73-1.22 [facility] eGFR- Amer. >60 Normal [facility] GFR/1.73 sq M predicted among non-blacks MDRD (S/P/Bld) [Vol rate/Area] 52 . Normal [facility] Comment on above: Result Comment: eGFR (Estimated GFR) Units of measure: mL/min/1.73 meters squared eGFR is derived from the reexpressed MDRD Study equation using the following parameters: serum creatinine, age, gender and race. The creatinine assay has been calibrated to be traceable to IDMS. An eGFR <60 mL/min/1.73m2 for >3 months is consistent with chronic kidney disease. Refer to KDOQI guidelines for clinical interpretation. In patients with unstable renal function, e.g. those with acute kidney injury, the eGFR may not accurately reflect actual GFR. Glucose [Mass/Vol] 108 mg/dL High 74-99 [facility] Comment on above: Result Comment: The [place] Diabetes Association (ADA) provides guidance for cutoff values for fasting glucose and random glucose. The ADA defines fasting as no caloric intake for at least 8 hours. Fasting plasma glucose results between 100 to 125 mg/dL indicate increased risk for diabetes (prediabetes). Fasting plasma glucose results greater than or equal to 126 mg/dL meet the criteria for diagnosis of diabetes. In the absence of unequivocal hyperglycemia, results should be confirmed by repeat testing. In a patient with classic symptoms of hyperglycemia or hyperglycemic crisis, random plasma glucose results greater than or equal to 200 mg/dL meet the criteria for diagnosis of diabetes. Reference: Standards of Medical Care in Diabetes 2016, [place] [employer] Association. Diabetes Care. 2016.39(Suppl 1). Potassium [Moles/Vol] 4.2 mmol/L Normal 3.7-5.1 [facility] Protein [Mass/Vol] 7.5 g/dL Normal 6.3-8.0 [facility] Sodium [Moles/Vol] 146 mmol/L High 136-144 [facility] Urea nitrogen [Mass/Vol] 30 mg/dL High 9-24 [facility] HISTORY PHYSICALon 9 HISTORY PHYSICAL HNO ID: [id number] Author: Yolanda Alford Service: Hospital Medicine Author Type: Physician Type: HANDP Filed: 11/22/2018 1:58 PM Note Text: SERVICE DATE: 11/22/2018 SERVICE TIME: 1:58 PM HOSPITAL MEDICINE HISTORY AND PHYSICAL PCP: Caroline Cochran MD NIGHT AND WEEKEND COVERAGE: Days: [phone], please page me for patient issues. Nights: [phone], please page [facility] Hospitalist Night coverage pager [phone] SUBJECTIVE Chief Complaint: Nausea/vomiting HPI: Mr. 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 Patient poor historian. History taken from chart review and sign out from [place] physician. Patient was sent to [facility] from [facility] due to concerns for multiple emesis after supper on 11/21/18. Patient states the was having an upset stomach and was found to be sticking his finger down his throat at [place] to induce vomiting. Patient underwent CT abdomen/pelvis (11/22/18, OSH): mid distal small bowel obstruciton likely due to adhesion at site of prior small bowel-small bowel anastomosis. Patient family requesting transfer to [facility]. Surgery request for admission under medicine PAST MEDICAL HISTORY Diagnosis Date - Mental retardation - Nontoxic uninodular goiter stable - Seizure disorder (HCC) follows with neuro Dr. Shawnee Toribio Proctor PAST SURGICAL HISTORY Procedure Laterality Date - INSERT PICC 05/11/2014 - LAP SM BOWEL RESECTION W/ANASTOMOSIS, SNGL 10/2013 fascia closed, skin open for SBO - MIDLINE INSERTION/CONSULT 05/04/2014 - MIDLINE INSERTION/CONSULT 08/08/2016 - PAST SURGICAL HISTORY OF 7 months old abd surgery - PAST SURGICAL HISTORY OF fracture clavicle - PAST SURGICAL HISTORY OF VAGAL NERVE STIMULATOR for seizure Px - PAST SURGICAL HISTORY OF 05/05/14 Exploratory laparotomy, small bowel resection and anastomosis , extensive lysis of adhesions FAMILY HISTORY Problem Relation Age of Onset - Ischemic Heart Disease Mother - other (Thyroid Ca) Mother - other (Multiple Myeloma) Mother - other (DM) Mother - other (htn) Mother - other (Lung Ca) Father smoker - other (A fib) Brother - other (Heart attack) Brother - other (HTN) Sister - other (DM) Sister - other (leukemia) Maternal Uncle - other (pancreatic Ca) Maternal Aunt - Ischemic Heart Disease Maternal Grandfather - Alzheimer's Disease Maternal Grandmother - other (HTN) Maternal Grandmother - other (dm) Paternal Grandmother Social History Tobacco Use - Smoking status: Never Smoker - Smokeless tobacco: Never Used Substance Use Topics - Alcohol use: No - Drug use: No Medications: Reviewed Allergies: ALLERGIES Allergen Reactions - Bleach [Other] - Clindamycin Rash - Penicillins Swelling Review of Systems: 10 point review of systems is otherwise negative except as mentioned above OBJECTIVE: PHYSICAL EXAM BP 113/72 Pulse 90 Temp (Src) 98.2 (Oral) Resp 18 Physical Exam Performed: General: Lying in bed in NAD, non-toxic appearing, alert and awake HEENT: PERRLA, EOMI, neck supple, NGT in nare CVS: RRR, no murmurs noted Lungs: CTA and good air entry bilaterally Abdomen: Bowel sounds present, soft, NT, ND, healed midline abdominal scar with reducible ventral hernia Extremities: Trace pitting edema bilaterally Mental: Appropriate mood and affect Neuro: No focal deficits noted Lines, Drains, and Airways Line Peripheral 11/22/18 1325 Admission to Hospital Right Antecubital 22 Gauge less than 1 day Reviewed lines, drains, AND airways. Need to be continued for IV access Diagnostic tests reviewed: Most recent labs and imaging results ASSESSMENT AND PLAN Active Hospital Problems as of 11/22/2018 Noted - Resolved Hospital Intellectual disability 04/26/2014 - Present Seizure (HCC) 11/22/2018 - Present Current Assessment AND Plan Assessment: Chronic, stable PLAN: Continue home meds Fall/seizure precautions * (Principal) Small bowel obstruction due to adhesions (HCC) 04/26/2014 - Present Current Assessment AND Plan Assessment: Transferred from [facility] to [facility] per family request CT abdomen/pelvis (11/22/18, OSH): mid distal small bowel obstruciton likely due to adhesion at site of prior small bowel-small bowel anastomosis NGT placed at outside hospital PLAN: KUB to confirm positioning NPO except meds NGT to LIWS suction for now Surgery consulted IVF, monitor for signs of fluid overload Medication and Non-Pharmacologic VTE Prophylaxis/Anticoag ulants Anticoagulant AND Antiplatelet Medications (From admission, onward) Start Dose Route Frequency Ordered Stop 11/22/18 1400 heparin 5,000 Units injection (Medical Risk Categories) 5,000 Units SUBCUTANEOUS EVERY 12 HOURS 11/22/18 1356 -- 11/22/18 1400 vte non-pharmacologic prophylaxis - none indicated (fl,oh) 11/22/18 1400 activity - mobilize patient (ks,mo) VTE Prophylaxis: VTE prophylaxis appropriate SIGNATURE: Yolanda Alford MD PATIENT NAME: Amol Taylor DATE: November 22, 2018 TIME: 1:58 PM PAGER/CONTACT #: [phone] [facility] Magnesiumon 11-22-2018 Magnesium [Mass/Vol] 1.8 mg/dL Normal 1.7-2.3 [facility] NURSING PROGon 11-22-2018 NURSING PROG HNO ID: [id number] Author: Emily (Rn) ARA Dee Service: ? Author Type: Registered Nurse Type: Nursing Progress Note Filed: 11/22/2018 6:48 PM Note Text: Pt admitted from [place] ED in a stable condition. Oriented to self and location. Knows home address. [place] and follows commands. Called POA sister to help with admission assessment. Per sister pt moved to about 2 years ago when parents but pt doesn't know. Pt has been using wheelchair with x 2 assist about a year ago but was walking on his own with L ankle brace for foot drop before that. Denies abdominal pain. NG tube patent and on low suction per order by Dr Alford. Pt passed swallow eval. Able to swallow pills. Seizure precaution in place. Bed alarm on. [facility] PROGRESSon 11-22-2018 PROGRESS HNO ID: [id number] Author: Roya Cobian) Zahira Baeza Service: Radiology Author Type: Threading Machine Setter Type: Progress Notes Filed: 11/22/2018 4:38 PM Note Text: Radiology Service Progress Note PATIENT NAME: Amol Taylor DATE OF SERVICE: November 22, 2018 TIME: 4:38 PM PATIENT IDENTITY VERIFICATION COMPLETED USING TWO (2) METHODS: Name and Date of confirmed by patient verbally and Name and Date of confirmed by identification band. PATIENT GENDER DATA: Male PATIENT RELEVANT IMPLANT DATA REVIEWED: Not Applicable RADIOLOGY DEPARTMENT: General X-ray: Exam(s) Completed: Abdomen X-Ray Abdomen PERIPHERAL IV DATA: Not applicable SIGNED BY: Zahira Mensah November 22, 2018 4:38 PM Normal [facility] PROGRESS HNO ID: [id number] Author: Wellington Morris III Service: General Surgery Author Type: Physician Type: Progress Notes Filed: 11/25/2018 10:53 AM Note Text: CONSULT: General surgery SERVICE SERVICE DATE: 11/22/2018 SERVICE TIME: 3:20pm REASON FOR CONSULT: SBO REQUESTING PHYSICIAN: Dr Alford PRIMARY CARE PHYSICIAN: Caroline Cochran MD Subjective Mr. Taylor is a 63 year old male who presents as a transfer from [facility] for SBO. Patient poor historian -->history also obtained from admitting physician HANDP as well as documentation from care everywhere . Attending physician Dr Morris was able to get more detailed history from prior [place] physician before transfer. Family was not at bedside on evaluation. Patient arrives with c/o SBO on CT at OSH today on 11/22/18. Patient has NGT placed upon evaluation bedside and admits to feeling much better. On bedside exam he denies nausea or vomiting. 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 Patient cooperative and comfortable on exam. FUNCTIONAL STATUS: Partially dependent-- resides in [place] PAST MEDICAL HISTORY Diagnosis Date - Mental retardation - Nontoxic uninodular goiter stable - Seizure disorder (HCC) follows with neuro Dr. Shawnee Toribio Proctor PAST SURGICAL HISTORY Procedure Laterality Date - INSERT PICC 05/11/2014 - LAP SM BOWEL RESECTION W/ANASTOMOSIS, SNGL 10/2013 fascia closed, skin open for SBO - MIDLINE INSERTION/CONSULT 05/04/2014 - MIDLINE INSERTION/CONSULT 08/08/2016 - PAST SURGICAL HISTORY OF 7 months old abd surgery - PAST SURGICAL HISTORY OF fracture clavicle - PAST SURGICAL HISTORY OF VAGAL NERVE STIMULATOR for seizure Px - PAST SURGICAL HISTORY OF 05/05/14 Exploratory laparotomy, small bowel resection and anastomosis , extensive lysis of adhesions FAMILY HISTORY Problem Relation Age of Onset - Ischemic Heart Disease Mother - other (Thyroid Ca) Mother - other (Multiple Myeloma) Mother - other (DM) Mother - other (htn) Mother - other (Lung Ca) Father smoker - other (A fib) Brother - other (Heart attack) Brother - other (HTN) Sister - other (DM) Sister - other (leukemia) Maternal Uncle - other (pancreatic Ca) Maternal Aunt - Ischemic Heart Disease Maternal Grandfather - Alzheimer's Disease Maternal Grandmother - other (HTN) Maternal Grandmother - other (dm) Paternal Grandmother Social History Tobacco Use - Smoking status: Never Smoker - Smokeless tobacco: Never Used Substance Use Topics - Alcohol use: No - Drug use: No Medications Prior to Admission: levETIRAcetam (KEPPRA) 1,000 mg tablet Take 1,500 mg by mouth twice daily. Disp: Rfl: 08/07/2016 at 0600 lacosamide (VIMPAT) 150 mg tab Take by mouth twice daily. 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 Disp: Rfl: Unknown at Unknown time tamsulosin ER (FLOMAX) 0.4 mg cp24 Take 1 capsule by mouth once daily. 30 minutes after the same meal each day. (Patient taking differently: Take 0.4 mg by mouth twice daily. 30 minutes after the same meal each day.) Disp: 90 capsule Rfl: 4 08/07/2016 at 0600 finasteride (PROSCAR) 5 mg tablet Take 1 tablet by mouth once daily. Disp: 90 tablet Rfl: 4 08/07/2016 at 0600 calcium carbonate (CALCIUM 600) 600 mg (1,500 mg) tab Take 1 tablet by mouth twice daily. (Patient taking differently: Take 1,500 mg by mouth twice daily. Chewable gummie.) Disp: 180 tablet Rfl: 3 Loperamide HCl (IMODIUM) 2 mg tab Take 1 tablet by mouth as needed (Patient takes two capsules on onset, one capsule after each loose stool and up to 4 in 24 hours). Disp: 120 tablet Rfl: 3 Unknown at Unknown time inulin-chromium picolinate (FIBER SELECT GUMMIES) 2-100 gram-mcg chew Patient takes 5mg gummies, once gummy twice daily Disp: 180 tablet Rfl: 3 Unknown at Unknown time Ibuprofen 200 mg cap Take 2 capsules by mouth every 4 hours (for headaches, muscle pain or fever over 100 degrees) Disp: 180 capsule Rfl: 3 Unknown at Unknown time HYDROcodone-acetamin ophen (NORCO) 5-325 mg per tablet 1 tablet every 6 hours as needed. Disp: Rfl: Unknown at Unknown time ondansetron orally disintegrating (ZOFRAN ODT) 4 mg disintegrating tablet Take 1 tablet by mouth every 8 hours as needed. Disp: 20 tablet Rfl: 0 Unknown at Unknown time lorazepam(ATIVAN 0.5 MG TAB) Take one(1) tablet every eight(8) hours as needed for seizures Disp: Rfl: 0 08/06/2016 at 1800 lamotrigine(LAMICTAL 200 MG TAB) take two 2 tablets in am and three(3)tablets in pm Disp: Rfl: 0 08/07/2016 at 0600 PRIMIDONE 250 MG TAB Take one(1)tablet in am and take one and one-half(1AND1/2) tablets in pm. Disp: Rfl: 0 08/07/2016 at 0600 Current Facility-Administere d Medications Medication Dose Route Frequency - LORazepam 0.5 mg tab(s) (ATIVAN) 0.5 mg ORAL q 8 H PRN - diazepam 20 mg rectal gel (DIASTAT) 20 mg RECTAL PRN - lamoTRIgine 200 mg tab(s) (LaMICtal) 200 mg ORAL DAILY - lamoTRIgine 600 mg tab(s) (LaMICtal) 600 mg ORAL AT BEDTIME - levETIRAcetam 1,500 mg tab(s) (KEPPRA) 1,500 mg ORAL BID - primidone 250 mg tab(s) (MYSOLINE) 250 mg ORAL DAILY - primidone 125 mg tab(s) (MYSOLINE) 125 mg ORAL AT BEDTIME - finasteride 5 mg tab(s) (PROSCAR) 5 mg ORAL DAILY - tamsulosin ER 0.4 mg cap(s) (FLOMAX) 0.4 mg ORAL BID - HYDROcodone 5 mg - acetaminophen 325 mg tablet (NORCO) 1 tablet ORAL q 6 H PRN - heparin 5,000 Units injection 5,000 Units SUBCUTANEOUS q 12 H - NaCl 0.9% iv infusion 75 mL/hr INTRAVENOUS CONTINUOUS - ondansetron 4 mg tab(s) (ZOFRAN) 4 mg ORAL q 6 H PRN Or - ondansetron (PF) 4 mg injection (ZOFRAN) 4 mg INTRAVENOUS q 6 H PRN - acetaminophen 650 mg tab(s) (TYLENOL) 650 mg ORAL q 6 H PRN - lacosamide 150 mg tab(s) (VIMPAT) 150 mg ORAL BID Allergies As of Date: 11/22/2018 Allergen Noted Reaction BLEACH [OTHER] 02/23/2005 CLINDAMYCIN 02/23/2005 Rash PENICILLINS 02/23/2005 Swelling Fully Assessed 11/22/2018 COMPLETE REVIEW OF SYSTEMS: PAIN ASSESSMENT: Negative for pain, history of chronic pain, or current treatment for a chronic pain condition. GENERAL: Limited HPI due patient poor historian RESPIRATORY: Negative for cough, hemoptysis, wheezing, COPD, dyspnea or shortness of breath CARDIOVASCULAR: Denies CP, SOB. GI: +resolving nausea/vomiting, abdominal pain. +h/o SBO : Limited HPI due patient poor historian MUSCULOSKELETAL: Limited HPI due patient poor historian SKIN: Negative for lesions, rash, and itching PSYCH: +h/o MRDD HEMATOLOGY/LYMPHOLOG Y: Limited HPI due patient poor historian ENDOCRINE: Limited HPI due patient poor historian NEURO: +h/o seizures and prior CVA Objective PHYSICAL EXAM: Physical Exam Performed: GENERAL: Alert, no distress, cooperative, smiling, non toxic. SKIN: Skin color, texture, turgor normal. No rashes or lesions. HEAD/SINUSES: No significant findings NOSE: Nares normal. NGT placed.. OROPHARYNX: Lips, mucosa, and tongue normal. Teeth and gums normal. Oropharynx normal. NECK: No jugulovenous distention, Supple LUNGS: Lungs clear to auscultation, Good diaphragmatic excursion CARDIAC: Normal S1 and S2; no rubs, murmurs, or gallops ABDOMEN: Abdomen soft, no distended and non-tender, Large soft reducible ventral hernia No masses or organomegaly EXTREMITIES: Extremities normal, no deformities, edema, clubbing or skin discoloration. HOLLAND BP 113/72 Pulse 90 Temp (Src) 98.2 (Oral) Resp 18 DATA: Diagnostic tests reviewed for today's visit: OSH labs and CT interpetations. CT READ: CONCLUSION: 1. Mid-distal small bowel obstruction likely due to an adhesion at site of prior small bowel-small bowel anastomosis. 2. Supraumbilical ventral hernia containing small bowel without obstruction or strangulation. Impression/Recommend ations Small bowel obstruction -Limited HPI -Limited assess to PMHX. -Appears to have improvement from NGT--> patient very comfortable on exam. -Abd soft, non tender with reducible ventral hernia. -Continue NGT LWIS -Repeat labs and 2 VW AXR in am -Serial exams -Seen bedside with Dr Morris-- continue conservative tx for now. SIGNATURE: COTY BENITEZ PA-C PATIENT NAME: Amol Taylor DATE: November 22, 2018 TIME: 3:58 PM PAGER: [phone] PA STUDENT PROGRESS NOTE SURGICAL SERVICES This note was generated by a PA STUDENT working under the supervision of a Physician Legal Mediator. As applicable, the findings, conclusions, and assessment of risk have been confirmed by a qualified provider. The note is NOTconsidered authenticated until addended and co-signed by the Physician at the beginning of this note. SUPERVISING PA NOTE ABOVE OF DOCUMENT SERVICE DATE: 11/22/2018 SERVICE TIME: 3:00pm Attending Note POD #N/A Subjective CHIEF COMPLAINT: Stomach upset INTERVAL HISTORY OF PRESENT ILLNESS: Patient poor historian. History taken from previous electric chart record. Patient was sent to [facility] from [facility] due to concerns for multiple emesis on 11/21/18. Patient states the was having an upset stomach and was found to be sticking his finger down his throat at [place] to induce vomiting. Patient underwent CT abdomen/pelvis (11/22/18, OSH): mid distal small bowel obstruciton likely due to adhesion at site of prior small bowel-small bowel anastomosis. After admitted, the patient was given NPO, NG, IV fluid, NORCO, ZOFRAN. Xray was done this afternoon. The patient states he feels better, no abdominal upset or pain, no N/V, no fever or chills, no SOB, chest pain or headache. Current Facility-Administere d Medications Medication Dose Route Frequency - LORazepam 0.5 mg tab(s) (ATIVAN) 0.5 mg ORAL q 8 H PRN - diazepam 20 mg rectal gel (DIASTAT) 20 mg RECTAL PRN - lamoTRIgine 200 mg tab(s) (LaMICtal) 200 mg ORAL DAILY - lamoTRIgine 600 mg tab(s) (LaMICtal) 600 mg ORAL AT BEDTIME - levETIRAcetam 1,500 mg tab(s) (KEPPRA) 1,500 mg ORAL BID - primidone 250 mg tab(s) (MYSOLINE) 250 mg ORAL DAILY - primidone 125 mg tab(s) (MYSOLINE) 125 mg ORAL AT BEDTIME - finasteride 5 mg tab(s) (PROSCAR) 5 mg ORAL DAILY - tamsulosin ER 0.4 mg cap(s) (FLOMAX) 0.4 mg ORAL BID - HYDROcodone 5 mg - acetaminophen 325 mg tablet (NORCO) 1 tablet ORAL q 6 H PRN - heparin 5,000 Units injection 5,000 Units SUBCUTANEOUS q 12 H - NaCl 0.9% iv infusion 75 mL/hr INTRAVENOUS CONTINUOUS - ondansetron 4 mg tab(s) (ZOFRAN) 4 mg ORAL q 6 H PRN Or - ondansetron (PF) 4 mg injection (ZOFRAN) 4 mg INTRAVENOUS q 6 H PRN - acetaminophen 650 mg tab(s) (TYLENOL) 650 mg ORAL q 6 H PRN - lacosamide 150 mg tab(s) (VIMPAT) 150 mg ORAL BID Objective PHYSICAL EXAM: BP 113/72 Pulse 90 Temp 36.8 ?C (98.2 ?F) (Oral) Resp 18 There is no height or weight on file to calculate BMI. GENERAL: Alert, no distress, cooperative LUNGS: Lungs clear to auscultation, Good diaphragmatic excursion CARDIAC: Normal S1 and S2; no rubs, murmurs, or gallops ABDOMEN: Abdomen soft, non-tender, BS normal, there is bulging protrusion when the abdominal pressure increased (patient talk or blow) on the mid and left upper quadrant. No organomegaly EXTREMITIES: Extremities normal, no deformities, mild pitting edema on both ankles, no clubbing or skin discoloration. Good capillary refill., No ulcers DATA: Diagnostic tests reviewed for today's visit: CT abdomen/pelvis (11/22/18, OSH): mid distal small bowel obstruciton likely due to adhesion at site of prior small bowel-small bowel anastomosis. Xray of abdominal (11/22/18): Nasogastric tube with tip in the gastric body. Dilated loops of bowel throughout the abdomen concerning for obstruction. Assessment/Plan Assessment: 1. SBO. 2. Abdominal hernia (epigastric and LUQ) Plan: continue NPO, NG tube, IV fluid, Zofran and all other medical management. Repeat abdominal Xray tomorrow morning. Will: No Will Present DVT Prophylaxis: Intermittent pneumatic compression device (IPCD) Reason for Continuing Antibiotics: There is no need to continue antibiotics SIGNATURE: America Renteria Student PATIENT NAME: Amol Taylor DATE: November 22, 2018 TIME: 3:35 PM PAGER/CONTACT #: Attending note: Pt seen by DOUGIE and myself. I personally examined the patient, all components above personally confirmed, note addended where appropriate. History and exam as noted above reviewed. Agree with plan as discussed above. Abdomen is soft and minimally distended without rebound or guarding and an easily reducible incisional hernia is present. Recommend serial clinical and radiologic evaluations with NPO, IVF, and NGT management for now to determine if this intestinal obstruction resolves on it's own or will require surgical intervention. Wellington Morris III, MD [facility] PROGRESS HNO ID: [id number] Author: Fidelia Cheatham (Rt) Service: Radiology Author Type: Threading Machine Setter Type: Progress Notes Filed: 11/22/2018 3:07 PM Note Text: Radiology Service Progress Note PATIENT NAME: Amol Taylor DATE OF SERVICE: November 22, 2018 TIME: 3:07 PM PATIENT IDENTITY VERIFICATION COMPLETED USING TWO (2) METHODS: Name and Date of confirmed by patient verbally and Name and Date of confirmed by identification band. PATIENT GENDER DATA: Male PATIENT RELEVANT IMPLANT DATA REVIEWED: Not Applicable RADIOLOGY DEPARTMENT: General X-ray: Exam(s) Completed: Abdomen X-Ray Abdomen PERIPHERAL IV DATA: Not applicable SIGNED BY: RT Pieter November 22, 2018 3:07 PM [facility] PROGRESS HNO ID: [id number] Author: Fidelia Cheatham (Rt) Service: Radiology Author Type: Threading Machine Setter Type: Progress Notes Filed: 11/22/2018 3:09 PM Note Text: Radiology Service Progress Note [facility] Phosphoruson 11-22-2018 Phosphate [Mass/Vol] 3.6 mg/dL Normal 2.7-4.8 [facility] XR ABD 2V SUPINE W UPR/DECUB /CTLon 11-22-2018 XR ABD 2V SUPINE W UPR/DECUB/CTL * * *Final Report* * * DATE OF EXAM: Nov 22 2018 4:40PM [id number] - XR ABD 2V SUPINE W UPR/DECUB/CTL / PROCEDURE REASON: Abd distension * * * * Physician Interpretation * * * * EXAMINATION: XR ABD 2V SUPINE W UPR/DECUB/CTL CLINICAL HISTORY: Abd distension Technique: XR ABD 2V SUPINE W UPR/DECUB/CTL with 1 views on 1 images Comparison: X-ray 11/22/2018 RESULT: Multiple dilated loops of small bowel are again seen. Enteric tube within the gastric body. No free air under the hemidiaphragms. IMPRESSION: Multiple dilated loops of small bowel are again seen. No obvious free air under the hemidiaphragms. Sales Performance Manager: [facility] Transcribe Date/Time: Nov 22 2018 4:50P Dictated by : NYLA WEST MD This examination was interpreted and the report reviewed and electronically signed by: NYLA WEST MD on Nov 22 2018 4:52PM EST [id number] CN Normal [facility] XR ABDOMEN 1V SUPINEon 11-22 XR ABDOMEN 1V SUPINE * * *Final Report* * * DATE OF EXAM: Nov 22 2018 3:01PM [id number] - XR ABDOMEN 1V SUPINE / PROCEDURE REASON: Evaluate tube, line or lead position * * * * Physician Interpretation * * * * EXAMINATION: XR ABDOMEN 1V SUPINE CLINICAL HISTORY: Evaluate tube, line or lead position Technique: XR ABDOMEN 1V SUPINE --with 1 views on 2 images Comparison: X-ray abdomen 08/13/2016 RESULT: Nasogastric tube with tip in the gastric body. Sidehole just distal to GE junction. Dilated loops of bowel throughout the abdomen. Largest loop measures up to 6.0 cm. Contrast within the urinary bladder. IMPRESSION: Nasogastric tube with tip in the gastric body. Dilated loops of bowel throughout the abdomen concerning for obstruction. Sales Performance Manager: [facility] Transcribe Date/Time: Nov 22 2018 3:07P Dictated by : NYLA WEST MD This examination was interpreted and the report reviewed and electronically signed by: NYLA WEST MD on Nov 22 2018 3:10PM EST [id number] CN [facility] Lamotrigine Levelon 11-01-19 19 Lamotrigine Lvl 14.2 ug/mL 3 - 15 ug/mL [facility] [employer] [place] Comment on above: Neither a therapeutic or toxic range for Lamotrigine have been well established. Some reports suggest a target for steady-state concentrations of 3 - 15 ug/mL. However, there is not a clear relationship between lamotrigine serum concentrations and clinical response. The assay should be used in conjunction with information available from clinical evaluations and other diagnostic procedures. Multiple measurements of lamotrigine may be needed. Levetiracetam Levelon 2018 Levetiracetam Lvl 42 ug/mL [facility] [place] [place] Comment on above: A reference range for Keppra has not been well established. The proposed therapeutic range for seizure control is 6-46 ug/mL. Measurement of Levetiracetam (Keppra) can be elevated due to the presence of both Keppra and Brivaracetam (Briviact) in the patient's system. The medications are structurally similar thus cross reactivity is possible. Pharmacokinetics of Keppra are affected by renal function. The relationship between serum concentrations and toxicity is not known. Phenobarbital Levelon 2018 Phenobarbital [Mass/Vol] 20.6 ug/mL 15 - 40 ug/mL [facility] Phen[facility]bital Date last dose NOT REPORTED [facility] [employer] [place] Phenobarbital Dose amount NOT REPORTED [facility] [employer] Phenobarbital Time last dose NOT REPORTED [facility] [employer] [place] Vitamin D 25 Hydroxyon 10-31 Interpretation and review of laboratory results Abnormal [facility] [employer] NetworksMISSOU[facility] RE[facility] CENTERHelpr Vit D, 25-Hydroxy 28.6 ng/mL Low 30 - 100 ng/mL [facility] [employer] [place], [place] Comment on above: Reference Range: Vitamin D status Range Deficiency <20 ng/mL Mild Deficiency 20-30 ng/mL Sufficiency 30-100 ng/mL Toxicity >100 ng/mL Vital Signs Date Time Vital Sign Value Performing Clinician Facility 04-20-2023 07:15-0500 Body temperature 97.9 [degF] Edilma Eastman MD Work Phone: [facility] 04-20-2023 07:15-0500 Diastolic blood pressure 57 mm[Hg] Edilma Eastman MD Work Phone: [facility] 04-20-2023 07:15-0500 Heart rate 77 /min Edilma Eastman MD Work Phone: [facility] 04-20-2023 07:15-0500 Respiratory rate 16 /min Edilma Eastman MD Work Phone: [facility] 04-20-2023 07:15-0500 SaO2% (BldA) [Mass fraction] 96 % Edilma Eastman MD Work Phone: [facility] 04-20-2023 07:15-0500 Systolic blood pressure 94 mm[Hg] Edilma Eastman MD Work Phone: [facility] 04-20-2023 05:23-0500 Body mass index (BMI) [Ratio] 28.47 kg/m2 Edilma Eastman MD Work Phone: [facility] 04-20-2023 05:23-0500 Body weight 80 kg Edilma Eastman MD Work Phone: [facility] 04-09-2023 19:56-0500 Body height 167.6 cm Edilma Eastman MD Work Phone: [facility] 11-11-2022 11:39-0400 Hourly Rounding Melchor Rivera [facility] 11-11-2022 11:39-0400 Promise to Return Melchor Rivera [facility] 11-11-2022 11:17-0400 Heart rate 50 /min Melchor Rivera [facility] 11-11-2022 11:17-0400 SaO2% (BldA) [Mass fraction] 94 % Melchor Rivera [facility] 11-11-2022 11:17-0400 Body temperature 97.52 [degF] Melchor Kensh [facility] 11-11-2022 11:17-0400 Diastolic blood pressure 76 mm[Hg] Melchor Rivera [facility] 11-11-2022 11:17-0400 Mean blood pressure 91 mm[Hg] Melchor Rivera [facility] 11-11-2022 11:17-0400 Systolic blood pressure 122 mm[Hg] Melchor Kensh [facility] 11-11-2022 11:00-0400 Blood Pressure Location Melchor Kensh [facility] 11-11-2022 11:00-0400 Respiratory rate 18 /min Melchor Kensh [facility] 11-11-2022 10:44-0400 Hourly Rounding Melchor Kensh [facility] 11-11-2022 10:44-0400 Promise to Return Melchor Kensh [facility] 11-11-2022 09:50-0400 Hourly Rounding Melchor Kensh [facility] 11-11-2022 09:50-0400 Promise to Return Melchor Kensh [facility] 11-11-2022 09:11-0400 Diastolic blood pressure 88 mm[Hg] Melchor Kensh [facility] 11-11-2022 09:11-0400 Systolic blood pressure 115 mm[Hg] Melchor Kensh [facility] 11-11-2022 07:38-0400 Heart rate 77 /min Melchor Kensh [facility] 11-11-2022 07:38-0400 SaO2% (BldA) [Mass fraction] 94 % Melchor Rivera [facility] 11-11-2022 07:38-0400 Body temperature 98.06 [degF] Melchor Kensh [facility] 11-11-2022 07:38-0400 Diastolic blood pressure 66 mm[Hg] Melchor Rivera [facility] 11-11-2022 07:38-0400 Mean blood pressure 78 mm[Hg] Melchor Rivera [facility] 11-11-2022 07:38-0400 Systolic blood pressure 103 mm[Hg] Melchor Rivera [facility] 11-11-2022 05:03-0400 Heart rate 54 /min Melchor Rivera [facility] 11-11-2022 05:03-0400 Mean blood pressure 70 mm[Hg] Melchor Rivera [facility] 11-11-2022 01:39-0400 SaO2% (BldA) [Mass fraction] 95 % Melchor Rivera [facility] 11-11-2022 01:39-0400 Body temperature 97.88 [degF] Melchor Rivera [facility] 11-10-2022 15:00-0400 Blood Pressure Location Melchor Rivera [facility] 11-10-2022 15:00-0400 Mean blood pressure 83 mm[Hg] Melchor Kensh [facility] 11-10-2022 15:00-0400 Respiratory rate 16 /min Melchor Rivera [facility] 11-09-2022 08:00-0400 Body temperature 97.34 [degF] Melchor Rivera [facility] 11-09-2022 00:00-0400 Body temperature 97.34 [degF] Melchor Rivera [facility] 11-08-2022 15:52-0400 Body temperature 97.88 [degF] Melchor Rivera [facility] 11-08-2022 15:52-0400 Mean blood pressure 71 mm[Hg] Melchor Rivera [facility] 11-08-2022 14:09-0400 Heart rate 84 /min Melchor Rivera [facility] 11-08-2022 13:10-0400 Mean blood pressure 91 mm[Hg] Melchor Rivera [facility] 11-08-2022 08:57-0400 Heart rate 101 /min Melchor Rivera [facility] 09-07-2022 07:45-0400 Body temperature 97.39 [degF] Lyla Zepeda MD Work Phone: [facility] 09-07-2022 07:45-0400 Diastolic blood pressure 66 mm[Hg] Lyla Zepeda MD Work Phone: [facility] 09-07-2022 07:45-0400 Heart rate 58 /min Lyla Zepeda MD Work Phone: [facility] [employer] 09-07-2022 07:45-0400 Respiratory rate 22 /min Lyla Zepeda MD Work Phone: [facility] 09-07-2022 07:45-0400 SaO2% (BldA) [Mass fraction] 100 % Lyla Zepeda MD Work Phone: [facility] 09-07-2022 07:45-0400 Systolic blood pressure 122 mm[Hg] Lyla Zepeda MD Work Phone: [facility] 09-07-2022 04:30-0400 Body mass index (BMI) [Ratio] 29.79 kg/m2 Lyla Zepeda MD Work Phone: [facility] 09-07-2022 04:30-0400 Body weight 81.19 kg Lyla Zepeda MD Work Phone: [facility] 09-04-2022 12:26-0400 Body height 165.1 cm Llya Zepeda MD Work Phone: [facility] 06-27-2022 12:00-0400 Hourly Rounding Kari Robenstine [facility] 06-27-2022 12:00-0400 Promise to Return Kari Robenstine [facility] 06-27-2022 11:51-0400 Blood Pressure Location Kari Robenstine [facility] 06-27-2022 11:51-0400 Body temperature 98.06 [degF] Kari Robenstine [facility] 06-27-2022 11:51-0400 Diastolic blood pressure 64 mm[Hg] Kari Robenstine [facility] 06-27-2022 11:51-0400 Heart rate 81 /min Kari Robenstine [facility] 06-27-2022 11:51-0400 Mean blood pressure 78 mm[Hg] Kari Robenstine [facility] 06-27-2022 11:51-0400 Respiratory rate 18 /min Krai Robenstine [facility] 06-27-2022 11:51-0400 SaO2% (BldA) [Mass fraction] 94 % Kari Robenstine [facility] 06-27-2022 11:51-0400 Systolic blood pressure 105 mm[Hg] Kari Robenstine [facility] 06-27-2022 11:20-0400 Hourly Rounding Kari Robenstine [facility] 06-27-2022 11:20-0400 Promise to Return Kari Robenstine [facility] 06-27-2022 10:00-0400 Hourly Rounding Kari Robenstine [facility] 06-27-2022 10:00-0400 Promise to Return Kari Robenstine [facility] 06-27-2022 08:20-0400 Diastolic blood pressure 64 mm[Hg] Kari Robenstine [facility] 06-27-2022 08:20-0400 Systolic blood pressure 107 mm[Hg] Kari Robenstine [facility] 06-27-2022 07:30-0400 Heart rate 72 /min Kari Robenstine [facility] 06-27-2022 07:30-0400 SaO2% (BldA) [Mass fraction] 95 % Kari Robenstine [facility] 06-27-2022 07:30-0400 Body temperature 98.06 [degF] Kari Robenstine [facility] 06-27-2022 07:29-0400 Diastolic blood pressure 64 mm[Hg] Kari Robenstine [facility] 06-27-2022 07:29-0400 Mean blood pressure 78 mm[Hg] Kari Robenstine [facility] 06-27-2022 07:29-0400 Systolic blood pressure 107 mm[Hg] Kari Robenstine [facility] 04-25-2023 02:02-0400 Blood Pressure Location Kari Robenstine [facility] 06-27-2022 02:02-0400 Body temperature 97.88 [degF] Kari Robenstine [facility] 06-27-2022 02:02-0400 Heart rate 67 /min Kari Robenstine [facility] 06-27-2022 02:02-0400 Mean blood pressure 90 mm[Hg] Kari Robenstine [facility] 06-27-2022 02:02-0400 Respiratory rate 20 /min Kari Robenstine [facility] 06-27-2022 02:02-0400 SaO2% (BldA) [Mass fraction] 96 % Kari Robenstine [facility] 06-26-2022 22:29-0400 Mean blood pressure 85 mm[Hg] Kari Robenstine [facility] 06-26-2022 16:25-0400 Body temperature 97.88 [degF] Kari Robenstine [facility] 06-26-2022 16:25-0400 Mean blood pressure 97 mm[Hg] Kari Robenstine [facility] 06-26-2022 11:51-0400 Body temperature 96.98 [degF] Kari Robenstine [facility] 06-26-2022 11:50-0400 Mean blood pressure 81 mm[Hg] Kari Robenstine [facility] 06-26-2022 07:48-0400 Body temperature 98.6 [degF] Kari Robenstine [facility] 06-25-2022 00:00-0400 Heart rate 82 /min Kari Sales [facility] 06-24-2022 22:00-0400 gluc 104 mg/dL Kari Sales [facility] 06-24-2022 01:37-0400 Heart rate 58 /min Kari Sales [facility] 06-23-2022 20:33-0400 Body temperature 97.3 [degF] Jose Chacon MD Work Phone: [employer] 06-23-2022 20:33-0400 Diastolic blood pressure 71 mm[Hg] Jose Chacon MD Work Phone: [employer] 06-23-2022 20:33-0400 Heart rate 57 /min Jose Chacon MD Work Phone: [employer] 06-23-2022 20:33-0400 Respiratory rate 18 /min Jose Chacon MD Work Phone: [employer] 06-23-2022 20:33-0400 SaO2% (BldA) [Mass fraction] 96 % Jose Chacon MD Work Phone: [employer] 06-23-2022 20:33-0400 Systolic blood pressure 114 mm[Hg] Jose Chacon MD Work Phone: [employer] 06-23-2022 05:39-0400 Body mass index (BMI) [Ratio] 29.38 kg/m2 Jose Chacon MD Work Phone: [employer] 06-23-2022 05:39-0400 Body weight 82.56 kg Jose Chacon MD Work Phone: [employer] 06-22-2022 10:07-0400 Body height 167.6 cm Jose Chacon MD Work Phone: [employer] 05-12-2022 14:00-0500 Body temperature 97.5 [degF] Aron Andes DO Work Phone: [facility] 05-12-2022 14:00-0500 Diastolic blood pressure 87 mm[Hg] Aron Andes DO Work Phone: [facility] 05-12-2022 14:00-0500 Heart rate 67 /min Aron Andes DO Work Phone: [facility] [employer] 05-12-2022 14:00-0500 Respiratory rate 18 /min Aron Andes DO Work Phone: [facility] 05-12-2022 14:00-0500 SaO2% (BldA) [Mass fraction] 94 % Aron Andes DO Work Phone: [facility] 05-12-2022 14:00-0500 Systolic blood pressure 99 mm[Hg] Aron Andes DO Work Phone: [facility] 05-12-2022 05:00-0500 Body mass index (BMI) [Ratio] 29.54 kg/m2 Aron Andes DO Work Phone: [facility] 05-12-2022 05:00-0500 Body weight 83.01 kg Aron Andes DO Work Phone: [facility] 05-09-2022 08:24-0500 Body height 167.6 cm Aron Andes DO Work Phone: [facility] 09-10-2021 21:31-0400 Body temperature 97.7 [degF] Larry Warner DO [facility] 09-10-2021 21:31-0400 Diastolic blood pressure 68 mm[Hg] Larry Daytelma DO [facility] 09-10-2021 21:31-0400 Heart rate 96 /min Larry Warner DO [facility] 09-10-2021 21:31-0400 Systolic blood pressure 128 mm[Hg] Larry Helenarebecca DO [facility] 06-30-2022 10:35-0400 Blood Pressure Location Melchor Kensh [facility] 09-01-2021 10:35-0400 Diastolic blood pressure 70 mm[Hg] Melchor Kensh [facility] 09-01-2021 10:35-0400 Heart rate 86 /min Melchor Kensh [facility] 09-01-2021 10:35-0400 Respiratory rate 16 /min Melchor Kensh [facility] 09-01-2021 10:35-0400 Systolic blood pressure 114 mm[Hg] Melchor Kensh [facility] 08-12-2021 10:30-0400 Blood Pressure Location Melchor Kensh [facility] 08-12-2021 10:30-0400 Body temperature 97.34 [degF] Melchor Kensh [facility] 08-12-2021 10:30-0400 Diastolic blood pressure 70 mm[Hg] Melchor Kensh [facility] 08-12-2021 10:30-0400 Heart rate 74 /min Melchor Kensh [facility] 08-12-2021 10:30-0400 Respiratory rate 16 /min Melchor Kensh [facility] 08-12-2021 10:30-0400 Systolic blood pressure 133 mm[Hg] Melchor Kensh [facility] 07-29-2021 10:01-0400 Blood Pressure Location Melchor Kensh [facility] 07-29-2021 10:01-0400 Body temperature 96.98 [degF] Melchor Kensh [facility] 07-29-2021 10:01-0400 Diastolic blood pressure 70 mm[Hg] Melchor Kensh [facility] 07-29-2021 10:01-0400 Heart rate 91 /min Melchor Rivera [facility] 07-29-2021 10:01-0400 Respiratory rate 16 /min Melchor Rivera [facility] 07-29-2021 10:01-0400 Systolic blood pressure 120 mm[Hg] Melchor Kensh [facility] 07-15-2021 11:53-0400 Blood Pressure Location Laney Paula [facility] 07-15-2021 11:53-0400 Body temperature 97.34 [degF] Laney Paula [facility] 07-15-2021 11:53-0400 Diastolic blood pressure 74 mm[Hg] Laney Paula [facility] 07-15-2021 11:53-0400 Heart rate 102 /min Laney Paula [facility] 07-15-2021 11:53-0400 Respiratory rate 18 /min Laney Paula [facility] 07-15-2021 11:53-0400 Systolic blood pressure 111 mm[Hg] Laney Paula [facility] 07-05-2021 19:38-0400 Hourly Rounding Melchor Rivera [facility] 07-05-2021 19:38-0400 Promise to Return Melchor Rivera [facility] 07-05-2021 16:32-0400 Body temperature 98.6 [degF] Melchor Kensh [facility] 07-05-2021 16:32-0400 Diastolic blood pressure 62 mm[Hg] Melchor Kensh [facility] 07-05-2021 16:32-0400 Heart rate 71 /min Melchor Rivera [facility] 07-05-2021 16:32-0400 Mean blood pressure 80 mm[Hg] Melchor Kensh [facility] 07-05-2021 16:32-0400 Respiratory rate 18 /min Melchor Kensh [facility] 07-05-2021 16:32-0400 SaO2% (BldA) [Mass fraction] 92 % Melchor Rivera [facility] 07-05-2021 16:32-0400 Systolic blood pressure 115 mm[Hg] Melchor Kensh [facility] 07-05-2021 13:32-0400 Diastolic blood pressure 70 mm[Hg] Melchor Kensh [facility] 07-05-2021 13:32-0400 Systolic blood pressure 125 mm[Hg] Melchor Kensh [facility] 07-05-2021 11:09-0400 Body temperature 98.42 [degF] Melchor Kensh [facility] 07-05-2021 11:09-0400 Diastolic blood pressure 64 mm[Hg] Melchor Kensh [facility] 07-05-2021 11:09-0400 Heart rate 99 /min Melchor Kensh [facility] 07-05-2021 11:09-0400 Mean blood pressure 74 mm[Hg] Melchor Kensh [facility] 07-05-2021 11:09-0400 Respiratory rate 18 /min Melchor Rivera [facility] 07-05-2021 11:09-0400 SaO2% (BldA) [Mass fraction] 96 % Melchor Rivera [facility] 07-05-2021 11:09-0400 Systolic blood pressure 93 mm[Hg] Melchor Rivera [facility] 07-05-2021 11:09-0400 Blood Pressure Location Melchor Rivera [facility] 07-05-2021 11:09-0400 BP/Pulse Patient Position Melchor Rivera [facility] 07-05-2021 07:34-0400 Body temperature 97.88 [degF] Melchor Rivera [facility] 07-05-2021 07:34-0400 Heart rate 95 /min Melchor Rivera [facility] 07-05-2021 07:34-0400 Mean blood pressure 88 mm[Hg] Melchor Rivera [facility] 07-05-2021 07:34-0400 Respiratory rate 18 /min Melchor Rivera [facility] 07-05-2021 07:34-0400 SaO2% (BldA) [Mass fraction] 96 % Melchor Rivera [facility] 07-05-2021 00:34-0400 Blood Pressure Location Melchor Rivera [facility] 07-05-2021 00:34-0400 BP/Pulse Patient Position Melchor Rivera [facility] 07-05-2021 00:34-0400 Mean blood pressure 87 mm[Hg] Melchor Rivera [facility] 07-04-2021 16:00-0400 Blood Pressure Location Melchor Rivera [facility] 07-04-2021 16:00-0400 BP/Pulse Patient Position Melchor Rivera [facility] 07-04-2021 16:00-0400 Mean blood pressure 82 mm[Hg] Melchor Kensh [facility] 07-04-2021 00:00-0400 Mean blood pressure 83 mm[Hg] Melchor Kensh [facility] 06-30-2021 11:44-0400 Body temperature 97.52 [degF] Melchor Kensh [facility] 06-30-2021 07:42-0400 Body temperature 97.7 [degF] Melchor Kensh [facility] 06-30-2021 07:42-0400 Heart rate 54 /min Melchor Kensh [facility] 06-29-2021 23:00-0400 Body temperature 97.88 [degF] Melchor Knesh [facility] 06-20-2021 20:00-0400 Respiratory rate 20 /min Melchor Kensh [facility] 06-20-2021 18:00-0400 Respiratory rate 24 /min Melchor Kensh [facility] 06-20-2021 17:00-0400 Respiratory rate 34 /min Melchor Kensh [facility] 06-14-2021 11:58-0400 Body temperature 97.16 [degF] Melchor Kensh [facility] 06-14-2021 07:39-0400 Body temperature 99.14 [degF] Melchor Kensh [facility] 06-11-2021 19:30-0400 Heart rate 102 /min Melchor Kensh [facility] 06-11-2021 19:30-0400 Heart rate 107 /min Melchor Kensh [facility] 06-11-2021 15:46-0400 Heart rate 70 /min Melchor [employer] [facility] 05-27-2021 09:25-0400 Blood Pressure Location Melchor [employer] [facility] 05-27-2021 09:25-0400 Body temperature 98.24 [degF] Melchor [employer] [facility] 05-27-2021 09:25-0400 Diastolic blood pressure 66 mm[Hg] Seva Coffee [facility] 05-27-2021 09:25-0400 Heart rate 75 /min Melchor [employer] [facility] 05-27-2021 09:25-0400 Systolic blood pressure 125 mm[Hg] [facility] [employer] [facility] Encounters Encounter Date Encounter Type Care Provider Facility Start: 04-23-2023 End: [facility]: 04-16-[facility]23 ambulatory Ysamani Garcia ty:[facility] Start: 04-16-2023 End: 04-20-2023 [facility] Start: 04-13-2023 End: 04-20-2023 Evaluation [facility] management of [facility] Start: 04-12-2023 End: 04-20-2023 Evaluation and management of inpatient [facility] Start: 04-12-2023 End: 04-17-2023 Evaluation and management of inpatient XAVIER Weeks [facility] Start: 04-12-2023 End: 04-20-2023 Evaluation and management of inpatient [facility] Start: 04-10-2023 End: 04-20-2023 Evaluation and management of inpatient [facility] Start: 04-10-2023 End: 04-20-2023 Evaluation and management of inpatient ERNESTO SERRA [facility] Start: 04-10-2023 End: 04-10-2023 ambulatory DIAN RANDALL [facility] Start: 04-08-2023 End: 04-20-2023 [facility] Start: 04-08-2023 End: 04-20-2023 Evaluation and management of inpatient Deneen De Jesus MD Work Phone: [facility] - [facility] Acute Start: 04-08-2023 End: 04-09-2023 Emergency department patient visit DIAN RANDALL [facility] Start: 04-07-2023 End: 04-09-2023 Emergency department patient visit DIAN RANDALL [facility] Start: 04-07-2023 End: 04-08-2023 [facility] Start: 03-21-2023 End: 03-22-2023 ambulatory [facility] Start: 03-15-2023 End: 03-15-2023 ambulatory CARSON MATAMOROS Not Available Start: 02-16-2023 End: 02-17-2023 ambulatory Yasmani CAMARA Facility:[facility] Start: 02-10-2023 End: 02-14-2023 Evaluation and management of inpatient CARSON MATAMOROS [facility] Start: 01-18-2023 End: 01-19-2023 [facility] Start: 01-10-2023 End: 01-11-2023 amb[facility] Start: 11-08-2022 End: 11-11-2022 ambulatory Melchor Rivera [facility] Start: 11-08-2022 End: 11-11-2022 Observation Melchor Rivera [facility] Start: 09-02-2022 Evaluation and management of inpatient LYLA ZEPEDA [facility] Start: 09-02-2022 End: 09-07-2022 Evaluation and management of inpatient Lyla Zepeda MD [facility] Comment on above: Small bowel obstruct ion (HCC) (Primary Dx) Start: 06-24-2022 End: 06-27-2022 Evaluation and management of inpatient Kari Sales [facility] Start: 06-23-2022 End: 06-27-2022 Evaluation and management of inpatient Kari Sales [facility] Start: 06-21-2022 Evaluation and management of inpatient JOSE ARON CORY [facility] Start: 06-21-2022 End: 06-24-2022 Evaluation and management of inpatient Jose Chacon MD Work Phone: [facility] Comment on above: SBO (small bowel obs truction) (HCC) (Primary Dx) Start: 06-12-2022 End: 06-15-2022 Evaluation and management of inpatient [facility] Start: 05-09-2022 End: 05-12-2022 Evaluation and management of inpatient [facility] Start: 05-08-2022 End: 05-12-2022 Evaluation and management of inpatient [facility] Work Phone: [facility] Comment on above: Small bowel obstruct ion (HCC) (Primary Dx); Acute kidney injury (HCC); History of seizure disorder Start: 05-05-2022 End: 05-06-2022 ambulatory [facility] Start: 05-05-2022 End: 05-05-2022 Subsequent hospital visit by physician eKvin Robles DO Work Phone: [facility] Start: 03-22-2022 End: 03-22-2022 Subsequent hospital visit by physician Kevin Robles DO Work Phone: [facility] Start: 02-08-2022 End: 02-08-2022 Subsequent hospital visit by physician Kevin Robles DO Work Phone: [facility] Start: 11-09-2021 End: 11-09-2021 Subsequent hospital visit by physician Kevin Robles DO Work Phone: [facility] Start: 10-19-2021 End: 10-19-2021 Subsequent hospital visit by physician Kevni Robles DO Work Phone: [facility] Start: 10-04-2021 End: 10-05-[address] CARSON MATAMOROS Facility:[facility] Start: 09-10-2021 End: 09-10-2021 Emergency department patient visit Larry Warner DO [facility] ED Comment on above: Seizure (HCC) (Prima ry Dx) Start: 09-01-2021 End: 09-01-2021 Patient encounter procedure Melchor Rivera [facility] Start: 08-12-2021 End: 08-12-2021 Patient encounter procedure Melchor Edilma Rivera [facility] Start: 07-29-2021 End: 07-29-2021 Patient encounter procedure Melchor Rivera [facility] Start: 07-15-2021 End: 07-15-2021 Patient encounter procedure Laney Mitchell [facility] Start: 07-07-2021 End: 07-09-2021 Pre-admission assessment Laney Mitchell [facility] Start: 06-11-2021 End: 07-05-2021 Evaluation and management of inpatient Melchor Edilma Rivera [facility] Start: 06-11-2021 End: 06-11-[address] CARSON MATAMOROS Facility:[facility] Start: 05-27-2021 End: 05-27-2021 Patient encounter procedure Melchor Rivera [facility] Start: 03-30-2021 End: 03-30-2021 Subsequent hospital visit by physician Kevin Robles DO Work Phone: [facility] Start: 03-11-2021 End: 03-11-2021 Subsequent hospital visit by physician Kevin Robles DO Work Phone: [facility] Start: 02-28-2021 End: 03-01-[address] CARSON MATAMOROS Facility:[facility] Start: 08-18-2020 End: 08-18-2020 Subsequent hospital visit by physician Kevin Robles DO Work Phone: [facility] Start: 12-31-2019 End: 12-31-2019 Subsequent hospital visit by physician Kevin [facility] Start: 12-05-2018 End: 12-05-2018 Subsequent hospital visit by physician Kevin [facility] Start: 11-12-2018 Patient encounter status [facility] Start: 10-31-2018 End: 10-31-2018 Subsequent hospital visit by physician Kevin CAMP[facility] Start: 07-29-2018 Patient encounter procedure Edilma Eastman MD Work Phone: [facility] [employer] [facility] Start: 10-11-2016 End: 10-11-2016 Ambulatory PIEDAD HOOKER Facility:[facility] Start: 10-09-2016 Ambulatory PIEDAD MORRO Facility: [facility] Start: 08-08-2016 End: 08-14-2016 Evaluation and management of inpatient LIZZ GARCIABLATT [facility] Procedures Date Procedure Procedure Detail Performing Clinician Start: 04-20-2023 Basic metabolic pane l calcium total Gonzales La MD Work Phone: Start: 04-19-2023 End: 04-19-2023 Basic metabolic panel calcium total Gonzales La MD Work Phone: Start: 04-18-2023 Assay of magnesium Tayl or J Dimmerling MD Work Phone: Start: 04-18-2023 Basic metabolic pane l calcium total Gonzales La MD Work Phone: Start: 04-17-2023 End: 04-17-2023 Basic metabolic panel calcium total Gonzales La MD Work Phone: Start: 04-16-2023 Calcium ionized Gonzales La MD Work Phone: Start: 04-16-2023 Radiologic exam swal low function contrast study Gonzales La MD Work Phone: Start: 04-16-2023 Basic metabolic pane l calcium total Gonzales La MD Work Phone: Start: 04-16-2023 Drug assay lacosamide M uhamad Kerry La MD Work Phone: Start: 04-15-2023 Drug screen quantita tive levetiracetam Gonzales La MD Work Phone: Start: 04-15-2023 Assay of magnesium Bela La MD Work Phone: Start: 04-15-2023 Basic metabolic pane l calcium total Gonzales La MD Work Phone: Start: 04-14-2023 Assay of magnesium Bela La MD Work Phone: Start: 04-14-2023 Basic metabolic pane l calcium total Gonzales La MD Work Phone: Start: 04-13-2023 Radiologic exam abdo men 1 view Gonzales La MD Work Phone: Start: 04-13-2023 Blood count platelet automated Gonzales La MD Work Phone: Start: 04-13-2023 Basic metabolic pane l calcium total Gonzales La MD Work Phone: Start: 04-12-2023 Assay of magnesium Aura Broussard MD Work Phone: Start: 04-12-2023 Radiologic exam ches t single view Gonzales La MD Work Phone: Start: 04-12-2023 Echo tthrc r-t 2d w/wom-mode compl spec&colr d Xavier Segal PA-C Work Phone: Start: 04-12-2023 Radiologic exam swal low function contrast study Gonzales La MD Work Phone: Start: 04-12-2023 Basic metabolic pane l calcium total Gonzales La MD Work Phone: Start: 04-11-2023 Assay of magnesium Aura Broussard MD Work Phone: Start: 04-11-2023 Ecg routine ecg w/le ast 12 lds trcg only w/o i&r Gonzales La MD Work Phone: Start: 04-11-2023 Basic metabolic pane l calcium total Gonzales La MD Work Phone: Start: 04-10-2023 Radiologic exam smal l int single contrast study Ernesto Serra MD Work Phone: Start: 04-10-2023 Radiologic exam ches t single view Gonzales La MD Work Phone: Start: 04-10-2023 Basic metabolic pane l calcium total Houston Perkins MD Work Phone: Start: 04-09-2023 Assay of magnesium Norma Perkins MD Work Phone: Start: 04-09-2023 Basic metabolic pane l calcium total Nazia Broussard MD Work Phone: Start: 04-08-2023 PULSE OXIMETRY, SPOT Sh addis Broussard MD Work Phone: Start: 04-08-2023 Comprehensive metabo lic panel Deneen De Jesus MD Work Phone: Start: 09-07-2022 COVID-19, RAPID Lyla Zepeda MD Work Phone: Start: 09-07-2022 Radiologic exam abdo men 2 views Dorota Woodson [employer] Work Phone: Start: 09-07-2022 Rhythm ecg 1-3 leads w/interpretation & report Unknown Provider Result Start: 09-07-2022 Blood count complete auto&auto difrntl wbc Lyla Zepeda MD Work Phone: Start: 09-06-2022 Radiologic exam abdo men 1 view Lyla Zepeda MD Work Phone: Start: 09-06-2022 End: 09-07-2022 Rhythm ecg 1-3 leads w/interpretation & report Unknown Provider Result Start: 09-06-2022 Blood count complete auto&auto difrntl wbc Lyla Zpeeda MD Work Phone: Start: 09-05-2022 End: 09-06-2022 Rhythm ecg 1-3 leads w/interpretation & report Unknown Provider Result Start: 09-05-2022 Blood count complete auto&auto difrntl wbc Lyla Zepeda MD Work Phone: Start: 09-05-2022 Radiologic exam abdo men 2 views Dorota Woodson [employer] Work Phone: Start: 09-04-2022 Radiologic exam abdo men 2 views Dorota Woodson [employer] Work Phone: Start: 09-04-2022 End: 09-05-2022 Rhythm ecg 1-3 leads w/interpretation & report Unknown Provider Result Start: 09-04-2022 Blood count complete auto&auto difrntl wbc Lyla Zepeda MD Work Phone: Start: 09-03-2022 Radiologic exam abdo men 1 view Lyla Zepeda MD Work Phone: Start: 09-03-2022 Radiologic exam abdo men 1 view Lyla Zepeda MD Work Phone: Start: 09-03-2022 Assay of magnesium Александр Zepeda MD Work Phone: Start: 09-03-2022 End: 09-04-2022 Rhythm ecg 1-3 leads w/interpretation & report Unknown Provider Result Start: 09-03-2022 Rhythm ecg 1-3 leads w/interpretation & report Unknown Provider Result Start: 09-02-2022 Radiologic exam abdo men 1 view Jose John MD Work Phone: Start: 09-02-2022 Ct abdomen & pelvis w/contrast material Luke RENTERIA-C Work Phone: Start: 09-02-2022 Comprehensive metabo lic panel Luke Angeles PA-C Work Phone: Start: 06-23-2022 Radiologic exam abdo men 1 view Dorota Woodson [employer] Work Phone: Start: 06-23-2022 Radiologic exam abdo men 1 view Ilana I Nazemi DO Work Phone: Start: 06-23-2022 Blood count complete auto&auto difrntl wbc Jose Chacon MD Work Phone: Start: 06-23-2022 Rhythm ecg 1-3 leads w/interpretation & report Unknown Provider Result Start: 06-22-2022 Radiologic exam smal l int single contrast study Ilana I Nazemi DO Work Phone: Start: 06-22-2022 Radiologic exam abdo men 1 view Ilana I Nazemi DO Work Phone: Start: 06-22-2022 Blood count complete auto&auto difrntl wbc Jose Chacon MD Work Phone: Start: 06-22-2022 End: 06-23-2022 Rhythm ecg 1-3 leads w/interpretation & report Unknown Provider Result Start: 06-22-2022 Rhythm ecg 1-3 leads w/interpretation & report Unknown Provider Result Start: 06-21-2022 Intermittent pulse oximetry Jose Chacon MD Work Phone: Start: 06-21-2022 Iadna-dna/rna gi pth gn multiplex probe tq 12- Luke Karthik PA-C Work Phone: Start: 06-21-2022 Radiologic exam abdo men 1 view Luke Diazry PA-C Work Phone: Start: 06-21-2022 Ct abdomen & pelvis w/contrast material Luke Angeles PA-C Work Phone: Start: 06-21-2022 End: 06-21-2022 Comprehensive metabolic panel Carson Matamoros MD Work Phone: Start: 06-21-2022 IMMATURE PLATELET FRACTION Luke Diazry PA-C Work Phone: Start: 06-21-2022 SPECIMEN REJECTION Karine Diazry PA-C Work Phone: Start: 05-12-2022 COVID-19, RAPID Dorota Woodson [employer] Work Phone: Start: 05-11-2022 Radiologic exam smal l int single contrast study Dorota Woodson [employer] Work Phone: Start: 05-11-2022 Blood count complete auto&auto difrntl wbc Becca Patel MD Work Phone: Start: 05-10-2022 GLUCOSE, WHOLE BLOOD Di juan jose Patel MD Work Phone: Start: 05-10-2022 Radiologic exam comp lete acute abdomen series Tariq Pritchard [employer] Work Phone: Start: 05-10-2022 Blood count complete auto&auto difrntl wbc Becca Patel MD Work Phone: Start: 05-09-2022 Radiologic exam abdo men 1 view Dorota Woodson [employer] Work Phone: Start: 05-09-2022 Blood count complete auto&auto difrntl wbc Becca Patel MD Work Phone: Start: 05-09-2022 End: 05-09-2022 Radiologic exam abdomen 1 view Aron Conn DO Work Phone: Start: 05-08-2022 Basic metabolic pane l calcium total Aron Andalejandra DO Work Phone: Start: 05-08-2022 Hepatic function panel Aron Andalejandra DO Work Phone: Start: 05-05-2022 Urinalysis microscopic only Lynnette Branch [employer] Work Phone: Start: 05-05-2022 Urnls dip stick/tabl et rgnt auto w/o microscopy Lynnette Branch [employer] Work Phone: Start: 03-22-2022 Blood count complete auto&auto difrntl wbc Carson Matamoros MD Work Phone: Start: 03-22-2022 VITAMIN B12 & FOLATE Ma neil Matamoros MD Work Phone: Start: 02-08-2022 Basic metabolic pane l calcium total Shawnee Toribio DO Work Phone: Start: 02-08-2022 Hepatic function panel Shawnee Toribio DO Work Phone: Start: 09-10-2021 Basic metabolic pane l calcium total Larry Warner DO Start: 09-10-2021 Ct head/brain w/o co ntrast material Larry Warner DO Start: 09-10-2021 Ecg routine ecg w/le ast 12 lds w/i&r Larry Warner DO Start: 06-14-2021 Exploratory laparotomy Melchor Rivera Start: 08-18-2020 PSA screening Kevin I lo DO Work Phone: Comment on above: The Em ECLIA as say is used. Results obtained with different assay methods cannot be used interchangeably. Start: 08-18-2020 Basic metabolic pane l calcium total Carson Matamoros MD Work Phone: Start: 08-18-2020 Lipid panel Carson Matamoros MD Work Phone: Start: 12-31-2019 Basic metabolic pane l calcium total Shawnee Catarino Work Phone: Start: 12-31-2019 Blood count complete auto&auto difrntl wbc Shawnee Toribio Work Phone: Start: 12-31-2019 Hepatic function panel Shawnee Toribio Work Phone: Start: 12-31-2019 Quantitation drug no t elsewhere specified Shawnee Toribio Work Phone: Start: 12-05-2018 Urinalysis microscopic only Kevin J Ilo Work Phone: Start: 12-05-2018 Urnls dip stick/tabl et rgnt auto w/o microscopy Kevin J Ilo Work Phone: Start: 10-31-2018 25 hydroxy includes fractions if performed Kevin J Ilo Work Phone: Start: 10-31-2018 Drug screen quantita tive phenobarbital Kevin J Ilo Work Phone: Start: 10-31-2018 Quantitation drug no t elsewhere specified Kevin J [employer] Work Phone: Start: 10-21-2015 Hydrocelectomy [facility] Comment on above: LEFT Start: 03-05-1990 Structure of left sh oulder region (body structure) [facility] Colonoscopy [facility] Small intestine excision Efren orellanam Caipiaobao Vagal nerve stimulat or (physical object) Seva Coffee Plan of Treatment Date Care Activity Detail Author Start: 04-13-2026 Lipid panel Lipids [facility] [employer] Start: 08-18-2025 Lipid panel Lipid screen [facility] Start: 08-15-2023 Lipid panel Lipid screen [facility]- [place], [place] Start: 08-15-2023 Lipid screen Lipid screen [facility]- [place], [place] Start: 07-10-2023 Pneumococcal 65+ yea rs Vaccine (#3) Pneumococcal 65+ years Vaccine (#3) [facility] Start: 05-07-2024 Pneumococcal 65+ yea rs Vaccine (2 - PPSV23 or PCV20) Pneumococcal 65+ years Vaccine (2 - PPSV23 or PCV20) [facility] Start: 07-10-2023 Pneumococcal 65+ yea rs Vaccine (3 - PPSV23 if available, else PCV20) Pneumococcal 65+ years Vaccine (3 - PPSV23 if available, else PCV20) [facility] Start: 03-04-2023 DTaP/Tdap/Td vaccine (2 - Td or Tdap) DTaP/Tdap/Td vaccine (2 - Td or Tdap) [facility] Start: 03-04-2023 DTaP/Tdap/Td vaccine (2 - Td) DTaP/Tdap/Td vaccine (2 - Td) [place] Start: 03-04-2023 DTaP/Tdap/Td vaccine (4 - Td or Tdap) DTaP/Tdap/Td vaccine (4 - Td or Tdap) [facility] Start: 10-03-2022 Influenza vaccination [facility] Start: 04-13-2022 Prostate specific an tigen measurement Prostate Specific Antigen (PSA) Screening or Monitoring [facility] Start: 11-03-2021 Influenza vaccination Flu vaccine (# 1) [facility] Start: 10-03-2021 Influenza vaccination Flu vaccine (# 1) [facility] Start: 07-14-2021 COVID-19 Vaccine (4 - Booster for Pfizer series) COVID-19 Vaccine (4 - Booster for Pfizer series) [facility] Start: 05-11-2021 COVID-19 Vaccine (4 - Booster for Pfizer series) COVID-19 Vaccine (4 - Booster for Pfizer series) [facility] Start: 01-14-2021 Pneumococcal 65+ yea rs Vaccine (2 of 2 - PPSV23) Pneumococcal 65+ years Vaccine (2 of 2 - PPSV23) [facility] Start: 11-03-2020 Influenza vaccination [facility] Start: 11-04-2019 Influenza vaccination Flu vaccine (# 1) [place] Start: 11-03-2018 Influenza vaccination Flu vaccine (# 1) [place] Start: 08-25-2018 Annual Wellness Visi t (AWV) Annual Wellness Visit (AWV) [facility] Start: 03-11-2016 Shingles vaccine (2 of 3) Camacho gles vaccine (2 of 3) [facility] Start: 01-14-2006 Colon cancer screen colonoscopy Colon cancer screen colonoscopy [place] Start: 01-14-2006 Screening for malign ant neoplasm of colon Colon cancer screen colonoscopy [place] Start: 01-14-2006 Shingles Vaccine (1 of 2) Camacho gles Vaccine (1 of 2) [facility] Start: 01-14-2001 Screening for malign ant neoplasm of colon [facility] Start: 01-14-1991 Diabetes screen Diabetes screen [facility] Start: 01-14-1974 Hepatitis C screening Hepatitis C [facility] Start: 01-14-1971 HIV screen HIV screen [place], [place] Start: 01-14-1971 HIV screening HIV screen [facility] Start: 1968 COVID-19 Vaccine (1) COVID-19 Vaccin e (1) [facility] [employer] Work Phone: Start: 1968 Depression Screen Depression Screen [facility] Start: 01-14-1961 COVID-19 Vaccine (1) COVID-19 Vaccin e (1) [facility] Start: 1955 Annual Wellness Visi t (AWV) Annual Wellness Visit (AWV) [facility] Start: 1955 Hepatitis C screen Hepatitis C scree n [place] Start: 1956 Hepatitis C screening Hepatitis C [facility] End: 12-05-2018 Bacteria identified Cx Nom (U) Urine Culture Microbiology Routine Once for 1 Occurrences starting 12/05/2018 until 12/05/2018 [place] Comment on above: Once for 1 Occurrenc es starting 12/05/2018 until 12/05/2018 Bacteria identified Cx Nom (U) Urine Culture Microbiology Routine 12/05/2018 6:15 AM EDT [place] End: 06-26-2022 Basic Metabolic Panel w/ Reflex to MG Basic Metabolic Panel w/ Reflex to MG Lab Routine Daily for 3 Days starting 06/24/2022 until 06/26/2022 [employer] Work Phone: Comment on above: Daily for 3 Days sta rting 06/24/2022 until 06/26/2022 End: 06-30-2022 CBC W Auto Differential panel - Blood CBC auto differential Lab Routine Tomorrow AM for 9 Occurrences starting 06/22/2022 until 06/30/2022, 2 completed [employer] Work Phone: Comment on above: Tomorrow AM for 9 Oc currences starting 06/22/2022 until 06/30/2022, 2 completed End: 09-09-2022 CBC W Auto Differential panel - Blood CBC auto differential Lab Routine Daily for 7 Days starting 09/03/2022 until 09/09/2022, 5 completed [facility] Comment on above: Daily for 7 Days sta rting 09/03/2022 until 09/09/2022, 5 completed End: 09-09-2022 Comprehensive Metabolic Panel w/ Reflex to MG Comprehensive Metabolic Panel w/ Reflex to MG Lab Routine Daily for 7 Days starting 09/03/2022 until 09/09/2022, 5 completed [facility] Comment on above: Daily for 7 Days sta rting 09/03/2022 until 09/09/2022, 5 completed End: 05-05-2022 Culture, Urine [facility] Work Phone: Comment on above: Once for 1 Occurrenc es starting 05/05/2022 until 05/05/2022 EKG 12 Lead EKG 12 Lead ECG STAT 09/10/2021 9:45 PM EDT [facility] End: 10-31-2018 Lacosamide Level Lacosamide Level Lab Routine Once for 1 Occurrences starting 10/31/2018 until 10/31/2018 [facility]: Once for 1 Occurrenc es starting 10/31/2018 until 10/31/2018 [facility] End: 12-31-2019 Lacosamide Level Lacosamide Level Lab Routine Once for 1 Occurrences starting 12/31/2019 until 12/31/2019 [facility] Comment on above: Once for 1 Occurrenc es starting 12/31/2019 until 12/31/2019 End: 11-09-2021 Lacosamide Level [employer] Work Phone: Comment on above: Once for 1 Occurrenc es starting 11/09/2021 until 11/09/2021 Oxygen therapy [Mini mum Data Set] Initiate Oxygen Therapy Protocol Respiratory Care Routine As Needed until discontinued starting 05/09/2022 [employer] Work Phone: Comment on above: As Needed until disc ontinued starting 05/09/2022 Oxygen therapy [Mini mum Data Set] Initiate Oxygen Therapy Protocol Respiratory Care Routine As Needed until discontinued starting 06/21/2022 [employer] Work Phone: Comment on above: As Needed until disc ontinued starting 06/21/2022 Oxygen therapy [Mini mum Data Set] Initiate Oxygen Therapy Protocol Respiratory Care Routine Daily until discontinued starting 09/02/2022 [facility] Comment on above: Daily until disconti nued starting 09/02/2022 End: 10-31-2018 Primidone level Primidone level Lab Routine Once for 1 Occurrences starting 10/31/2018 until 10/31/2018 [place] Comment on above: Once for 1 Occurrenc es starting 10/31/2018 until 10/31/2018 Primidone level Primidone level Lab Routine 10/31/2018 12:05 PM EDT [place] End: 09-10-2022 XR ABDOMEN (2 VIEWS) XR ABDOMEN (2 VIEWS) Imaging Routine Daily for 7 Occurrences starting 09/04/2022 until 09/10/2022, 3 completed [facility] [employer] Comment on above: Daily for 7 Occurren juany starting 09/04/2022 until 09/10/2022, 3 completed Immunizations Immunization Date Immunization Notes Care Provider [facility] 07-13-2021 tuberculin skin test ; unspecified formulation [facility]il[facility] Eastman MD [facility] 07-07-2021 tuberculin skin test ; unspecified formulation Edilma Eastman MD Work Phone: [employer] 03-16-2021 Edilma palomares MD Work Phone: [facility] 01-03-2021 Edilma palomares MD Work Phone: [facility] 04-06-2020 Edilma palomares MD Work Phone: [facility] 03-10-2020 Edilma palomares MD Work Phone: [facility] 07-09-2018 pneumococcal polysaccharide vaccine, 23 valent Edilma Eastman MD Work Phone: [facility] 12-20-2017 influenza, injectabl e, quadrivalent, preservative free Edilma Eastman MD Work Phone: [facility] 02-14-2017 influenza virus vacc ine, unspecified formulation Edilma Eastman MD Work Phone: [facility] 02-14-2017 influenza, injectabl e, quadrivalent, preservative free Edilma Eastman MD Work Phone: [facility] 02-14-2017 pneumococcal conjuga te vaccine, 13 valent Edilma Eastman MD Work Phone: [facility] 2016 zoster vaccine, live Edilma Eastman MD Work Phone: [facility] 12-24-2014 influenza virus vacc ine, unspecified formulation Edilma Eastman MD Work Phone: [facility] 12-24-2014 influenza, injectabl e, quadrivalent, preservative free Edilma Eastman MD Work Phone: [facility] 01-14-2014 influenza virus vacc ine, unspecified formulation Edilma Eastman MD Work Phone: [facility] 01-14-2014 influenza, seasonal, injectable Edilma Eastman MD Work Phone: [facility] 03-04-2013 tetanus toxoid, redu breanne diphtheria toxoid, and acellular pertussis vaccine, adsorbed Kevin [facility] 01-14-2010 pneumococcal conjuga te vaccine, 13 valent Edilma Eastman MD Work Phone: [facility] 01-14-1975 diphtheria and tetan us toxoids, adsorbed for pediatric use Edilma Eastman MD Work Phone: [facility] 01-14-1975 tetanus toxoid, redu breanne diphtheria toxoid, and acellular pertussis vaccine, adsorbed Edilma Eastman MD Work Phone: [facility] 1955 hepatitis B vaccine, adult dosage Edilma Eastman MD Work Phone: [facility] [employer] [facility] Payers Date Payer Category Payer Medicare UHC MEDICARE [facility] DUAL COMPLETE xxxxxxxxx 2018-Present xxxxxxxxx [id number] 2018 Medicare [id number] 2017 Medicare [id number] .[id number] 2017 Medicaid [id number] .[id number] 2014 Medicaid MEDICAID [facility] DEPT OF JOB xxxxxxxxxxxx 2014-Present [phone] [address] [place] [address] xxxxxxxxxxxx [id number] 1959 Medicaid [id number] .[id number] 1956 Unknown [id number] 2.16.840.1.856358.3.579.2.5 93 1956 Unknown [id number] 2.16.840.1.117135.3.579.2.5 93 1956 Unknown [id number] 2.16.840.1.272232.3.579.2.5 93 1956 Unknown [id number] 2.16.840.1.334765.3.579.2.5 93 1956 Unknown [id number] 2.16.840.1.201341.3.579.2.1 75 1956 Unknown [id number] 2.16.840.1.398280.3.579.2.7 27 1956 Unknown [id number] 2.16.840.1.617307.3.579.2.7 27 1956 Unknown [id number] 2.16.840.1.374083.3.579.2.7 27 1956 Unknown [id number] 2.16.840.1.023678.3.579.2.7 27 1956 Unknown [id number] 2.16.840.1.391109.3.579.2.1 259 1956 Unknown [id number] 2.16.840.1.397049.3.579.2.1 73 1956 Unknown [id number] 2.16.840.1.727914.3.579.2.1 73 1956 Unknown [id number] 2.16.840.1.227192.3.579.2.1 73 1956 Unknown [id number] 2.16.840.1.787969.3.579.2.1 73 1956 Unknown [id number] 2.16.840.1.620793.3.579.2.1 73 1956 Unknown [id number] 2.16.840.1.960678.3.579.2.1 73 1956 Unknown [id number] 2.16.840.1.309542.3.579.2.1 73 1956 Unknown [id number] 2.16.840.1.218853.3.579.2.1 73 1956 Unknown [id number] 2.16.840.1.921575.3.579.2.1 286 1956 Unknown [id number] 2.16.840.1.038606.3.579.2.1 286 1956 Unknown [id number] 2.16.840.1.588285.3.579.2.1 286 1956 Unknown [id number] 2.16.840.1.623173.3.579.2.1 286 1956 Unknown [id number] 2.16.840.1.523121.3.579.2.1 286 1956 Unknown [id number] 2.16.840.1.433814.3.579.2.1 286 1956 Unknown [id number] 2.16.840.1.107628.3.579.2.1 286 1956 Unknown [id number] 2.16.840.1.989592.3.579.2.1 286 1956 Unknown [id number] 2.16.840.1.061391.3.579.2.1 286 1956 Unknown [id number] 2.16.840.1.078446.3.579.2.1 286 1956 Unknown [id number] 2.16.840.1.598580.3.579.2.1 286 1956 Unknown [id number] 2.16.840.1.876179.3.579.2.1 286 1956 Unknown [id number] 2.16.840.1.390187.3.579.2.1 286 1956 Unknown [id number] 2.16.840.1.265231.3.579.2.1 286 Medicare [id number] Social History Date Type Detail Facility Start: 12-14-2015 End: 02-14-2017 [facility] Start: 12-14-2015 End: 03-16-2020 Alcohol intake No [place] Start: 1955 Sex Assigned At Not on file M [place] Start: 12-14-2015 End: 04-09-2023 Alcohol intake Current non-drinker of alcohol (finding) [place] Tobacco smoking status Never [facility] Start: 08-31-2021 End: 09-10-2021 Exposure to SARS-CoV-2 (event) Unable to assess [facility] Start: 04-28-2022 End: 06-21-2022 Exposure to SARS-CoV-2 (event) Not sure [facility] Start: 09-03-2022 History SDOH Alcohol Frequency 1 [facility] Start: 09-03-2022 History SDOH Alcohol Std Drinks 0 [facility] Start: 02-14-2017 Tobacco use and exposure Smokeless tobacco non-user [employer] Start: 03-16-2020 End: 04-17-2023 History of Social function [employer] How often to you hav e a drink containing alcohol? Never [employer] Medical Equipment Procedure Code Equipment Code Equipment Origin al Text Equipment Identifier Dates FDA Start: 06-14-2021 FDA Start: 06-14-2021 FDA Start: 06-14-2021 FDA Start: 06-14-2021 FDA Start: 06-14-2021 [employer] Kari Hunt MD 06/14/21 Unknown Abdomen FDA Start: 06-14-2021 LAPAR[employer]OMY Kari Hunt MD 06/14/21 Unknown Abdomen FDA Start: 06-14-2021 LAP[employer] Kari Hunt MD 06/14/21 Unknown Abdomen FDA Start: 06-14-2021 [id number] Start: 03-23-2020 Goals Date Patient Goal Desired Activity /State Personal health goal Functional Status Date Assessment Result Facility 11-08-2022 Functional Status No [facility] 11-08-2022 Functional Status [facility] 06-24-2022 Functional Status N/A [facility] 09-01-2021 Functional Status N/A [facility] Clinical Notes 10-19-2013 to 04-20-2023 Discharge Planning Note - Ellen Montes RN - 04/20/2023 8:24 AM ESTPlan of Care - Martina Linton RN - 04/20/2023 8:07 AM ESTPlan of Care - Mendy Gonzáles RN - 04/19/2023 11:11 PM EST Note Date & Type Note Facility 04-20-2023 Miscellaneous Notes DISCHARGE PLANNING NOTE Case and chart reviewed by CN. Discharge order in place from yesterday. CN spoke with Ruthann Lee, pt is scheduled to be picked up at 9 am. CN called and spoke with Korina [facility] leader to inform her of this change. CN called and updated guardian, Susan, as well. Discharge Plan remains: return to [facility]. CN will continue to follow and is available should any further needs arise. - Ellen Montes RN 04/20/23 8:25 AM Problem: Pain Goal: Patient goal is pain score less than 4, able to rest, and participant in treatment plan as appropriate Description: INTERVENTIONS: 1. Encourage patient or legal sales representative adding machines to report early pain and ask for pain medicine when needed 2. Assess pain using appropriate pain scale and include the scale used when documenting 3. Administer analgesics based on type and severity of pain and evaluate response within appropriate time frame 4. Implement non-pharmacological measures as appropriate and evaluate response 6. Notify LIP if interventions ineffective or patient reports new pain 7. Monitor vital signs including pulse ox, end-tidal CO2 based on pain intervention 8. Reassess pain per policy 9. Teach patient or legal sales representative adding machines interventions for comforting Outcome: Progressing Note: Evaluation of progress towards goal: pain control with PRN pain meds, reassesing every 4 hours and as needed Problem: Safety Goal: Patient will be injury free during hospitalization Description: INTERVENTIONS: 1. Assess patient's risk for falls and implement fall prevention plan of care per policy 2. Provide and maintain a safe environment 3. Proper use of double Identifiers 4. Medication administration using the 5 rights 5. Hand hygiene 6. Specimens are labeled at the bedside 7. Instruct patient/ patient sales representative adding machines about use of safety devices 8. Include patient/ patient sales representative adding machines in decisions related to safety Outcome: Progressing Note: Evaluation of progress towards goal: patient is free from injury, maintained a safe environment, used double identifiers Problem: Infection Goal: Absence of infection during hospitalization Description: Interventions: 1. Assess and monitor for signs and symptoms of infection 2. Monitor lab/diagnostic results 3. Monitor all insertion sites i.e., indwelling lines, tubes and drains 4. Monitor endotracheal (as able) and nasal secretions for changes in amount and color 5. Administer medications as ordered 6. Instruct and encourage patient and family to use good hand hygiene technique 7. Identify and instruct patient/patient sales representative adding machines in use of appropriate isolation precautions for identified infection/symptoms 8. Provide and discuss with patient/patient sales representative adding machines on educational MDRO sheet 9. Encourage and monitor nutritional status daily and consult seasonal recruiter if indicated 10. Implement neutropenic guidelines as needed 11. Review exposure to history of communicable disease and recent travel history on admission 12. Encourage annual influenza vaccine 13. Encourage pneumonia vaccine Outcome: Progressing Note: Evaluation of progress towards goal: patient does not demonstrates any s/s of infection, monitoring labs, monitoring IV site, no signs of infiltration or infection, administering meds as ordered, instructed on use of hand hygiene, monitoring nutritional intake Problem: Knowledge Deficit Goal: Patient/patient sales representative adding machines demonstrates understanding of disease process, treatment plan, medications, and discharge instructions Description: INTERVENTIONS 1. Complete learning assessment and assess knowledge base 2. Provide teaching at level of understanding 3. Provide teaching via preferred learning method(s) Outcome: Progressing Note: Evaluation of progress towards goal: patient demonstrates understanding of treatment plan, provided teaching at level of patient's understanding Problem: Discharge Planning Goal: Discharge to post-acute care, other facility, or home with appropriate resources Description: Patient's goal is: INTERVENTIONS 1. Conduct assessment to determine patient/family and health care team treatment goals, and need for post-acute services based on payer coverage, community resources, and patient preferences, and barriers to discharge 2. Coordinate with Social work, Care Navigation, and Utilization Review to arrange appropriate level of services according to patient's needs based on patient preference and payer coverage in collaboration with the physician and health care team 3. Address psychosocial, clinical, and financial barriers to discharge as identified in assessment in conjunction with the patient/family and health care team 4. Consult appropriate ancillary services (i.e.. PT/OT/ST, etc) as needed 5. Communicate with and update the patient/family, physician, and health care team regarding progress on the discharge plan 6. Identify discharge learning needs (meds, wound care, etc). 7. Arrange for needed discharge transportation as appropriate Outcome: Progressing Note: Evaluation of progress towards goal: discharge planning in progress, social work and care navigation on board, PT/OT ordered Problem: Potential for Compromised Skin Integrity Goal: Skin integrity is maintained or improved Description: Patient's goal is: INTERVENTIONS 1. Perform initial skin assessment on admission and as needed 2. Turn patient every 2 hours and PRN 3. Relieve pressure to bony prominences 4. Avoid shearing 5. Keep skin clean and dry 6. Alternate a full bath with partial baths for elderly 7. Encourage use of lotion/moisturizer on skin 8. Monitor patient's hygiene practices 9. Float heels 10. Collaborate with interdisciplinary team and initiate plans and interventions as needed Outcome: Progressing Note: Evaluation of progress towards goal: skin is kept clean and dry, patient is able to turn self, encouraged use of lotion, foot of bed elevated, bed bath given daily or per patient's preference skin is kept clean and dry, patient is able to turn self, encouraged use of lotion, foot of bed elevated, bed bath given daily or per patient's preference Goal: Patient's nutritional intake is adequate Description: Patient's goal is: INTERVENTIONS 1. Assess and monitor food intake and supplements, patient food preferences, nausea, vomiting, labs, oral cavity (gums, teeth, tongue, mucosa), proper denture fit, and cultural beliefs 2. Monitor for signs of hypoglycemia and hyperglycemia 3. Collaborate with interdisciplinary team and initiate plan and interventions as ordered 4. Monitor patient's weight 5. Assist patient with meals/food selection 6. Assist patient with eating 7. Allow adequate time for meals 8. Provide pleasant environment during mealtime 9. Increase social contact during mealtimes 10. Plan activities to conserve energy 11. Encourage/perform oral hygiene as appropriate 12. Encourage patient to take dietary supplement as ordered 13. Collaborate with clinical seasonal recruiter 14. Include patient/ patient's sales representative adding machines in decisions related to nutrition Outcome: Progressing Note: Evaluation of progress towards goal: monitoring patient's nutritional intake, monitoring weight, patient is able to feed self, monitoring for s/s of hypoglycemia and hyperglycemia, no nausea or vomiting Problem: Urinary Incontinence Goal: Perineal skin integrity is maintained or improved Description: INTERVENTIONS 1. Assess genitourinary system, perineal skin, labs (urinalysis), and history of incontinence to include past management, aggravating, and alleviating factors 2. Keep skin clean and dry 3. Apply skin protectant 4. Develop skin care regimen 5. Provide privacy when changing patients incontinence device to maintain their dignity 6. Consider placing an indwelling catheter 7. Collaborate with interdisciplinary team and initiate plans and interventions as needed Outcome: Progressing Note: Evaluation of progress towards goal: skin is kept clean and dry, gary care provided as needed, privacy provided, genitourinary system WNL Problem: Moderate - High Risk Fall Score Description: [place] Fall Score of =/> 25 or indicated by [facility] Rehab Assessment Goal: Patient should be free from fall Description: Interventions: 1. [place] to environment 2. Hourly rounds addressing the 4 P's (Pain, Positioning, Possessions, Potty) 3. Clear area of hazards (spills, clutter, electrical cords, unnecessary equipment) 4. Place equipment (bed & TV controls, call light, phone, urinal) within reach 5. Encourage patient to wear glasses and hearing aides as appropriate 6. Maintain bed in lowest position 7. Lock wheels on bed/wheelchair 8. Provide adequate lighting, including night light 9. Assess need for additional bedding, food/fluids, pain med's prior to sleep/routinely 10. Provide gripper slippers or personal non-skid footwear 11. Teach patient and patient sales representative adding machines to maintain environment for safety and engage in all aspects of fall prevention program 12. Remind patient to call for help before getting out of bed 13. Initiate bed/chair/exit alarms supportive devices as appropriate, (chair wedge, no-skid floor mat, raised edge mattress, hip protectors) 14. Locate patient bed assignment for optimal visualization 15. Evaluate and identify Safe Patient Handling Equipment needs 16. Provide supervision when out of bed or chair 17. Utilize gait belt as needed to assist with ambulation 18. Place adaptive equipment (cane, walker) within reach 19. Request patient sales representative adding machines bring adaptive equipment/mobility aids from home or obtain and provide as needed 20. Consult pharmacy regarding effects of med's affecting mobility, cognition, and alternatives 21. Obtain physician order for PT if risk factors associated with mobility are present 22. Obtain physician order for OT as appropriate 23. Utilize diversional activities 24. Educate patient and patient sales representative adding machines how to maintain a safe environment during visitation times (notify nurse prior to leaving bedside) 25. Consider appropriateness of medical or non-medical dir 26. Set up voiding schedule as appropriate (every 2 hours) Outcome: Progressing Note: Evaluation of progress towards goal: Problem: Inadequate Airway Clearance Goal: Patient will maintain patent airway Description: INTERVENTIONS 1. Assess and monitor breath sounds, cough and sputum (if present) 2. Monitor respiratory rate and oxygen saturation 3. Collaborate with respiratory therapy to administer medication, oxygen, and suitable airway clearance techniques as ordered 4. Position patient for maximum ventilatory efficiency; elevate head of bed at least 30 degrees if appropriate 5. Provide adequate fluid intake to liquify secretions if appropriate 6. Suction secretions as indicated to maintain patent airway 7. Instruct patient to turn, cough, and deep breathe; encourage incentive spirometer if indicated Outcome: Progressing Note: Evaluation of progress towards goal: Problem: Pain Goal: Patient goal is pain score less than 4, able to rest, and participant in treatment plan as appropriate Description: INTERVENTIONS: 1. Encourage patient or legal sales representative adding machines to report early pain and ask for pain medicine when needed 2. Assess pain using appropriate pain scale and include the scale used when documenting 3. Administer analgesics based on type and severity of pain and evaluate response within appropriate time frame 4. Implement non-pharmacological measures as appropriate and evaluate response 6. Notify LIP if interventions ineffective or patient reports new pain 7. Monitor vital signs including pulse ox, end-tidal CO2 based on pain intervention 8. Reassess pain per policy 9. Teach patient or legal sales representative adding machines interventions for comforting Outcome: Progressing Note: Evaluation of progress towards goal: Patient states pain less than 4 using 0-10 pain scale, scheduled and PRN analgesics administered based on severity of pain, vital signs monitored, will continue to monitor Problem: Safety Goal: Patient will be injury free during hospitalization Description: INTERVENTIONS: 1. Assess patient's risk for falls and implement fall prevention plan of care per policy 2. Provide and maintain a safe environment 3. Proper use of double Identifiers 4. Medication administration using the 5 rights 5. Hand hygiene 6. Specimens are labeled at the bedside 7. Instruct patient/ patient sales representative adding machines about use of safety devices 8. Include patient/ patient sales representative adding machines in decisions related to safety Outcome: Progressing Note: Evaluation of progress towards goal: patient assessed for risk for falls, environment safe and maintained, hand hygiene complete, will continue to monitor Problem: Moderate - High Risk Fall Score Description: [place] Fall Score of =/> 25 or indicated by [facility] Assessment Goal: Patient should be free from fall Description: Interventions: 1. [place] to environment 2. Hourly rounds addressing the 4 P's (Pain, Positioning, Possessions, Potty) 3. Clear area of hazards (spills, clutter, electrical cords, unnecessary equipment) 4. Place equipment (bed & TV controls, call light, phone, urinal) within reach 5. Encourage patient to wear glasses and hearing aides as appropriate 6. Maintain bed in lowest position 7. Lock wheels on bed/wheelchair 8. Provide adequate lighting, including night light 9. Assess need for additional bedding, food/fluids, pain med's prior to sleep/routinely 10. Provide gripper slippers or personal non-skid footwear 11. Teach patient and patient sales representative adding machines to maintain environment for safety and engage in all aspects of fall prevention program 12. Remind patient to call for help before getting out of bed 13. Initiate bed/chair/exit alarms supportive devices as appropriate, (chair wedge, no-skid floor mat, raised edge mattress, hip protectors) 14. Locate patient bed assignment for optimal visualization 15. Evaluate and identify Safe Patient Handling Equipment needs 16. Provide supervision when out of bed or chair 17. Utilize gait belt as needed to assist with ambulation 18. Place adaptive equipment (cane, walker) within reach 19. Request patient sales representative adding machines bring adaptive equipment/mobility aids from home or obtain and provide as needed 20. Consult pharmacy regarding effects of med's affecting mobility, cognition, and alternatives 21. Obtain physician order for PT if risk factors associated with mobility are present 22. Obtain physician order for OT as appropriate 23. Utilize diversional activities 24. Educate patient and patient sales representative adding machines how to maintain a safe environment during visitation times (notify nurse prior to leaving bedside) 25. Consider appropriateness of medical or non-medical dir 26. Set up voiding schedule as appropriate (every 2 hours) Outcome: Progressing Note: Evaluation of progress towards goal: patient oriented to environment, area clear of hazards, equipment within reach, bed in low and locked position, will continue to monitor Problem: Pain Goal: Patient goal is pain score less than 4, able to rest, and participant in treatment plan as appropriate Description: INTERVENTIONS: 1. Encourage patient or legal sales representative adding machines to report early pain and ask for pain medicine when needed 2. Assess pain using appropriate pain scale and include the scale used when documenting 3. Administer analgesics based on type and severity of pain and evaluate response within appropriate time frame 4. Implement non-pharmacological measures as appropriate and evaluate response 6. Notify LIP if interventions ineffective or patient reports new pain 7. Monitor vital signs including pulse ox, end-tidal CO2 based on pain intervention 8. Reassess pain per policy 9. Teach patient or legal sales representative adding machines interventions for comforting Outcome: Progressing Note: Evaluation of progress towards goal: pain control with PRN pain meds, reassesing every 4 hours and as needed Problem: Safety Goal: Patient will be injury free during hospitalization Description: INTERVENTIONS: 1. Assess patient's risk for falls and implement fall prevention plan of care per policy 2. Provide and maintain a safe environment 3. Proper use of double Identifiers 4. Medication administration using the 5 rights 5. Hand hygiene 6. Specimens are labeled at the bedside 7. Instruct patient/ patient sales representative adding machines about use of safety devices 8. Include patient/ patient sales representative adding machines in decisions related to safety Outcome: Progressing Note: Evaluation of progress towards goal: patient is free from injury, maintained a safe environment, used double identifiers Problem: Infection Goal: Absence of infection during hospitalization Description: Interventions: 1. Assess and monitor for signs and symptoms of infection 2. Monitor lab/diagnostic results 3. Monitor all insertion sites i.e., indwelling lines, tubes and drains 4. Monitor endotracheal (as able) and nasal secretions for changes in amount and color 5. Administer medications as ordered 6. Instruct and encourage patient and family to use good hand hygiene technique 7. Identify and instruct patient/patient sales representative adding machines in use of appropriate isolation precautions for identified infection/symptoms 8. Provide and discuss with patient/patient sales representative adding machines on educational MDRO sheet 9. Encourage and monitor nutritional status daily and consult seasonal recruiter if indicated 10. Implement neutropenic guidelines as needed 11. Review exposure to history of communicable disease and recent travel history on admission 12. Encourage annual influenza vaccine 13. Encourage pneumonia vaccine Outcome: Progressing Note: Evaluation of progress towards goal: patient does not demonstrates any s/s of infection, monitoring labs, monitoring IV site, no signs of infiltration or infection, administering meds as ordered, instructed on use of hand hygiene, monitoring nutritional intake Problem: Knowledge Deficit Goal: Patient/patient sales representative adding machines demonstrates understanding of disease process, treatment plan, medications, and discharge instructions Description: INTERVENTIONS 1. Complete learning assessment and assess knowledge base 2. Provide teaching at level of understanding 3. Provide teaching via preferred learning method(s) Outcome: Progressing Note: Evaluation of progress towards goal: patient demonstrates understanding of treatment plan, provided teaching at level of patient's understanding Problem: Discharge Planning Goal: Discharge to post-acute care, other facility, or home with appropriate resources Description: Patient's goal is: INTERVENTIONS 1. Conduct assessment to determine patient/family and health care team treatment goals, and need for post-acute services based on payer coverage, community resources, and patient preferences, and barriers to discharge 2. Coordinate with Social work, Care Navigation, and Utilization Review to arrange appropriate level of services according to patient's needs based on patient preference and payer coverage in collaboration with the physician and health care team 3. Address psychosocial, clinical, and financial barriers to discharge as identified in assessment in conjunction with the patient/family and health care team 4. Consult appropriate ancillary services (i.e.. PT/OT/ST, etc) as needed 5. Communicate with and update the patient/family, physician, and health care team regarding progress on the discharge plan 6. Identify discharge learning needs (meds, wound care, etc). 7. Arrange for needed discharge transportation as appropriate Outcome: Progressing Note: Evaluation of progress towards goal: discharge planning in progress, social work and care navigation on board, PT/OT ordered Problem: Potential for Compromised Skin Integrity Goal: Skin integrity is maintained or improved Description: Patient's goal is: INTERVENTIONS 1. Perform initial skin assessment on admission and as needed 2. Turn patient every 2 hours and PRN 3. Relieve pressure to bony prominences 4. Avoid shearing 5. Keep skin clean and dry 6. Alternate a full bath with partial baths for elderly 7. Encourage use of lotion/moisturizer on skin 8. Monitor patient's hygiene practices 9. Float heels 10. Collaborate with interdisciplinary team and initiate plans and interventions as needed Outcome: Progressing Note: Evaluation of progress towards goal: skin is kept clean and dry, patient is able to turn self, encouraged use of lotion, foot of bed elevated, bed bath given daily or per patient's preference Goal: Patient's nutritional intake is adequate Description: Patient's goal is: INTERVENTIONS 1. Assess and monitor food intake and supplements, patient food preferences, nausea, vomiting, labs, oral cavity (gums, teeth, tongue, mucosa), proper denture fit, and cultural beliefs 2. Monitor for signs of hypoglycemia and hyperglycemia 3. Collaborate with interdisciplinary team and initiate plan and interventions as ordered 4. Monitor patient's weight 5. Assist patient with meals/food selection 6. Assist patient with eating 7. Allow adequate time for meals 8. Provide pleasant environment during mealtime 9. Increase social contact during mealtimes 10. Plan activities to conserve energy 11. Encourage/perform oral hygiene as appropriate 12. Encourage patient to take dietary supplement as ordered 13. Collaborate with clinical seasonal recruiter 14. Include patient/ patient's sales representative adding machines in decisions related to nutrition Outcome: Progressing Note: Evaluation of progress towards goal: monitoring patient's nutritional intake, monitoring weight, patient is able to feed self, monitoring for s/s of hypoglycemia and hyperglycemia, no nausea or vomiting Problem: Urinary Incontinence Goal: Perineal skin integrity is maintained or improved Description: INTERVENTIONS 1. Assess genitourinary system, perineal skin, labs (urinalysis), and history of incontinence to include past management, aggravating, and alleviating factors 2. Keep skin clean and dry 3. Apply skin protectant 4. Develop skin care regimen 5. Provide privacy when changing patients incontinence device to maintain their dignity 6. Consider placing an indwelling catheter 7. Collaborate with interdisciplinary team and initiate plans and interventions as needed Outcome: Progressing Note: Evaluation of progress towards goal: skin is kept clean and dry, gary care provided as needed, privacy provided, genitourinary system WNL Problem: Moderate - High Risk Fall Score Description: [place] Fall Score of =/> 25 or indicated by [facility] Assessment Goal: Patient should be free from fall Description: Interventions: 1. [place] to environment 2. Hourly rounds addressing the 4 P's (Pain, Positioning, Possessions, Potty) 3. Clear area of hazards (spills, clutter, electrical cords, unnecessary equipment) 4. Place equipment (bed & TV controls, call light, phone, urinal) within reach 5. Encourage patient to wear glasses and hearing aides as appropriate 6. Maintain bed in lowest position 7. Lock wheels on bed/wheelchair 8. Provide adequate lighting, including night light 9. Assess need for additional bedding, food/fluids, pain med's prior to sleep/routinely 10. Provide gripper slippers or personal non-skid footwear 11. Teach patient and patient sales representative adding machines to maintain environment for safety and engage in all aspects of fall prevention program 12. Remind patient to call for help before getting out of bed 13. Initiate bed/chair/exit alarms supportive devices as appropriate, (chair wedge, no-skid floor mat, raised edge mattress, hip protectors) 14. Locate patient bed assignment for optimal visualization 15. Evaluate and identify Safe Patient Handling Equipment needs 16. Provide supervision when out of bed or chair 17. Utilize gait belt as needed to assist with ambulation 18. Place adaptive equipment (cane, walker) within reach 19. Request patient sales representative adding machines bring adaptive equipment/mobility aids from home or obtain and provide as needed 20. Consult pharmacy regarding effects of med's affecting mobility, cognition, and alternatives 21. Obtain physician order for PT if risk factors associated with mobility are present 22. Obtain physician order for OT as appropriate 23. Utilize diversional activities 24. Educate patient and patient sales representative adding machines how to maintain a safe environment during visitation times (notify nurse prior to leaving bedside) 25. Consider appropriateness of medical or non-medical dir 26. Set up voiding schedule as appropriate (every 2 hours) Outcome: Progressing Note: Evaluation of progress towards goal: patient is oriented x4, room is clear of hazards, call light within reach, bed locked in lowest position, non slip socks on, side rails x2, hourly rounding done, patient knows to press call light if needing anything, PT/OT on board, personal items within reach, educated on fall risk Problem: Inadequate Airway Clearance Goal: Patient will maintain patent airway Description: INTERVENTIONS 1. Assess and monitor breath sounds, cough and sputum (if present) 2. Monitor respiratory rate and oxygen saturation 3. Collaborate with respiratory therapy to administer medication, oxygen, and suitable airway clearance techniques as ordered 4. Position patient for maximum ventilatory efficiency; elevate head of bed at least 30 degrees if appropriate 5. Provide adequate fluid intake to liquify secretions if appropriate 6. Suction secretions as indicated to maintain patent airway 7. Instruct patient to turn, cough, and deep breathe; encourage incentive spirometer if indicated Outcome: Progressing Note: Evaluation of progress towards goal: monitoring lung sounds, no cough, respiratory rate and SpO2 WNL on RA, patient displays adequate ventilation, HOB regulated by patient, encouraged coughing and deep breathing, encouraged use of incentive spirometer DISCHARGE PLANNING NOTE BLS to alf set for 2pm. CN notified Guardian, Susan Smith and caregiver at alf, Korina of dc. DC packet prepared. CN also notified RN and attending of dc today.Daiana Randall RN CRF faxed to alf and placed in DC packet.Daiana Randall RN DISCHARGE PLANNING NOTE Scheduled a BLS transport to [facility]f 04/19/2023 at 1400 via PTN. Spoke to Leilani. Problem: Pain Goal: Patient goal is pain score less than 4, able to rest, and participant in treatment plan as appropriate Description: INTERVENTIONS: 1. Encourage patient or legal sales representative adding machines to report early pain and ask for pain medicine when needed 2. Assess pain using appropriate pain scale and include the scale used when documenting 3. Administer analgesics based on type and severity of pain and evaluate response within appropriate time frame 4. Implement non-pharmacological measures as appropriate and evaluate response 6. Notify LIP if interventions ineffective or patient reports new pain 7. Monitor vital signs including pulse ox, end-tidal CO2 based on pain intervention 8. Reassess pain per policy 9. Teach patient or legal sales representative adding machines interventions for comforting Note: Evaluation of progress towards goal: Patient's pain is assessed and documented with appropriate pain scale. Patient does not report pain thus far, pt encouraged to let RN know if she starts to develop pain. DISCHARGE PLANNING NOTE Case discussed in daily transition rounds and chart reviewed by LEO. Barriers to discharge include diet tolerance. Discharge Plan remains: Return to alf with home care. Korina will be point of contact at the alf tomorrow. Sister, Susan, and alf caregiver, Korina, ask for patient to wear his helmet during wheelchair transport. LEO asked for Edilma Eastman MD to write discharge order for home care, as alf will ask for the [facility] to send their PT, OT, and ST to the alf to work with patient, if ordered. Sister says she is ordering the speech recommended Provale cup from [facility] today. SW will continue to follow and is available should any further needs arise. - KRYSTIN IRVIN 04/18/23 3:03 PM DISCHARGE PLANNING NOTE CN spoke with Andrei at patient alf to let them know patient may return tomorrow based on how he tolerates nutrition plan today. Patient will need transport back to facility. - Paty Balderas RN 04/18/23 12:37 PM Speech Therapy Dysphagia Treatment Note Assessment: Current Diet Tolerance: Level 4 Pureed and No liquids Progress: improving Pain Assessment Pain Assessment: No/denies pain Pain Score: 0 Recommendations Diet: Level 4/Level 3 liquids via cup - Staff must assist patient with following guidelines: SMALL, single sips via cup Sit fully upright for all oral intake NO Straws of continuous sips. Discharge: At discharge, if patient continues to tolerate Level 3 liquids, suggest getting patient a Provale cup that will control his sip size when drinking. Precautions aspiration Plan: Plan of Care: continue with current plan of care Continue with Current Diet: yes Diet: Level 4 Pureed Liquids: Level 3 Moderately Thick Safety Strategies: small sips/bites, 1 at a time, no straws, and slow rate Subjective Setting: bedside Arrival Status: awake Mental Status: confused/disoriented but cooperative Therapy Tolerance: good Change in Medical Status: no Received Recent Medications: no Objective NMES: No Received message that family is wanting patient to be placed on liquids. 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 The osteophyte is positioned close to/same level as the laryngeal vestibule so that is residue accumulates, increased risk of aspiration occurs. Diet Trials: Level 3 Moderately Thick Outcome: Patient given Level 3 liquids for all trials: via spoon - tolerated without s/s aspiration; via straw - multiple swallows, moderately wet vocal quality following all swallows; via cup - small, controlled sip by ST presented - appeared to tolerate small, single sip without s/s aspiration. Recommendations: Level 3 liquids (Continue Level 4 diet) Supervision with all oral intake - staff to administer small, single sips of Level 3 liquids when patient sitting upright and fully awake. Do not leave liquids at bedside. Monitor closely for s/s aspiration IF any s/s aspiration, suggest stopping liquids, possible repeat VFSS. Discussed/messaged recommendations with ARA Paz; Edilma Eastman MD, and environmental health manager Tonja Briones. Plan Monitor closely for s/s aspiration, continue plan of care Speech Therapy Care Plan Speech Therapy Care Plan (Active) Template: ST - Dysphagia Problem: Swallowing Dates: Start: 04/16/23 Disciplines: GLUE MACHINE OPERATOR Goal: LTG: Patient will tolerate least restrictive diet recommended by GLUE MACHINE OPERATOR without signs and symptoms of aspiration 90% of the time Dates: Start: 04/16/23 Expected End: 05/15/23 Disciplines: GLUE MACHINE OPERATOR Outcomes Date/Time User Outcome 04/18/23 1043 CONTRERAS Chi Progressing Goal Note filed on 04/18/23 104 by CONTRERAS Chi Please see Progress Note for details. Goal: STG: Patient will complete safety strategies with minimal assistance during PO intake 90% of the time Dates: Start: 04/16/23 Expected End: 05/15/23 Disciplines: GLUE MACHINE OPERATOR Speech Therapy Care Plan (Resolved) There are no resolved problems. Principal Problem: SBO (small bowel obstruction) ([facility]) Problem: Discharge Planning Goal: Discharge to post-acute care, other facility, or home with appropriate resources Description: Patient's goal is: INTERVENTIONS 1. Conduct assessment to determine patient/family and health care team treatment goals, and need for post-acute services based on payer coverage, community resources, and patient preferences, and barriers to discharge 2. Coordinate with Social work, Care Navigation, and Utilization Review to arrange appropriate level of services according to patient's needs based on patient preference and payer coverage in collaboration with the physician and health care team 3. Address psychosocial, clinical, and financial barriers to discharge as identified in assessment in conjunction with the patient/family and health care team 4. Consult appropriate ancillary services (i.e.. PT/OT/ST, etc) as needed 5. Communicate with and update the patient/family, physician, and health care team regarding progress on the discharge plan 6. Identify discharge learning needs (meds, wound care, etc). 7. Arrange for needed discharge transportation as appropriate Outcome: Progressing Note: Evaluation of progress towards goal: Awaiting decision on nutrition plan. Nutrition plan to determine SNF vs return back to alf. Will continue to monitor. Additional Comments: Problem: Pain Goal: Patient goal is pain score less than 4, able to rest, and participant in treatment plan as appropriate Description: INTERVENTIONS: 1. Encourage patient or legal sales representative adding machines to report early pain and ask for pain medicine when needed 2. Assess pain using appropriate pain scale and include the scale used when documenting 3. Administer analgesics based on type and severity of pain and evaluate response within appropriate time frame 4. Implement non-pharmacological measures as appropriate and evaluate response 6. Notify LIP if interventions ineffective or patient reports new pain 7. Monitor vital signs including pulse ox, end-tidal CO2 based on pain intervention 8. Reassess pain per policy 9. Teach patient or legal sales representative adding machines interventions for comforting Note: Evaluation of progress towards goal: Patient's pain is assessed and documented with appropriate pain scale. Patient does not report pain thus far, pt encouraged to let RN know if she starts to develop pain. Problem: Pain Goal: Patient goal is pain score less than 4, able to rest, and participant in treatment plan as appropriate Description: INTERVENTIONS: 1. Encourage patient or legal sales representative adding machines to report early pain and ask for pain medicine when needed 2. Assess pain using appropriate pain scale and include the scale used when documenting 3. Administer analgesics based on type and severity of pain and evaluate response within appropriate time frame 4. Implement non-pharmacological measures as appropriate and evaluate response 6. Notify LIP if interventions ineffective or patient reports new pain 7. Monitor vital signs including pulse ox, end-tidal CO2 based on pain intervention 8. Reassess pain per policy 9. Teach patient or legal sales representative adding machines interventions for comforting Outcome: Progressing Note: Evaluation of progress towards goal: Pt verbalizes acceptable pain level with administration of PRN medications per order. Pt encouraged to report pain at onset. Pain assessed per protocol. Problem: Safety Goal: Patient will be injury free during hospitalization Description: INTERVENTIONS: 1. Assess patient's risk for falls and implement fall prevention plan of care per policy 2. Provide and maintain a safe environment 3. Proper use of double Identifiers 4. Medication administration using the 5 rights 5. Hand hygiene 6. Specimens are labeled at the bedside 7. Instruct patient/ patient sales representative adding machines about use of safety devices 8. Include patient/ patient sales representative adding machines in decisions related to safety Outcome: Progressing Note: Evaluation of progress towards goal: Pt free from injury. Hand hygiene performed before and after patient care tasks. 5 rights performed before each medication administration. Problem: Infection Goal: Absence of infection during hospitalization Description: Interventions: 1. Assess and monitor for signs and symptoms of infection 2. Monitor lab/diagnostic results 3. Monitor all insertion sites i.e., indwelling lines, tubes and drains 4. Monitor endotracheal (as able) and nasal secretions for changes in amount and color 5. Administer medications as ordered 6. Instruct and encourage patient and family to use good hand hygiene technique 7. Identify and instruct patient/patient sales representative adding machines in use of appropriate isolation precautions for identified infection/symptoms 8. Provide and discuss with patient/patient sales representative adding machines on educational MDRO sheet 9. Encourage and monitor nutritional status daily and consult seasonal recruiter if indicated 10. Implement neutropenic guidelines as needed 11. Review exposure to history of communicable disease and recent travel history on admission 12. Encourage annual influenza vaccine 13. Encourage pneumonia vaccine Outcome: Progressing Note: Evaluation of progress towards goal: Pt monitored for signs and symptoms of infection. Pt labs assessed for indications of infection. Medication administered per order. Appropriate PPE utilized while performing patient care. Problem: Knowledge Deficit Goal: Patient/patient sales representative adding machines demonstrates understanding of disease process, treatment plan, medications, and discharge instructions Description: INTERVENTIONS 1. Complete learning assessment and assess knowledge base 2. Provide teaching at level of understanding 3. Provide teaching via preferred learning method(s) Outcome: Progressing Note: Evaluation of progress towards goal: Patient demonstrates understanding of care plan. Pt states no further questions regarding plan of care and medication regimen. Problem: Discharge Planning Goal: Discharge to post-acute care, other facility, or home with appropriate resources Description: Patient's goal is: INTERVENTIONS 1. Conduct assessment to determine patient/family and health care team treatment goals, and need for post-acute services based on payer coverage, community resources, and patient preferences, and barriers to discharge 2. Coordinate with Social work, Care Navigation, and Utilization Review to arrange appropriate level of services according to patient's needs based on patient preference and payer coverage in collaboration with the physician and health care team 3. Address psychosocial, clinical, and financial barriers to discharge as identified in assessment in conjunction with the patient/family and health care team 4. Consult appropriate ancillary services (i.e.. PT/OT/ST, etc) as needed 5. Communicate with and update the patient/family, physician, and health care team regarding progress on the discharge plan 6. Identify discharge learning needs (meds, wound care, etc). 7. Arrange for needed discharge transportation as appropriate Outcome: Progressing Note: Evaluation of progress towards goal: Discharge plan correct. Pt will be discharged to alf when appropriate for discharge and orders placed. DISCHARGE PLANNING NOTE Per RN during discharge transition rounds, barriers to discharge are: nutrition plan, possible PEG. Discharge Plan: SNF vs back to alf depending on clinical course. Fence Supervisor will continue to follow for any discharge needs. - Paty Balderas RN 04/17/23 10:16 AM Problem: Pain Goal: Patient goal is pain score less than 4, able to rest, and participant in treatment plan as appropriate Description: INTERVENTIONS: 1. Encourage patient or legal sales representative adding machines to report early pain and ask for pain medicine when needed 2. Assess pain using appropriate pain scale and include the scale used when documenting 3. Administer analgesics based on type and severity of pain and evaluate response within appropriate time frame 4. Implement non-pharmacological measures as appropriate and evaluate response 8. Reassess pain per policy 9. Teach patient or legal sales representative adding machines interventions for comforting Outcome: Progressing Note: Evaluation of progress towards goal: Patients pain is managed with pain medications.Will continue to monitor Problem: Safety Goal: Patient will be injury free during hospitalization Description: INTERVENTIONS: 1. Assess patient's risk for falls and implement fall prevention plan of care per policy 2. Provide and maintain a safe environment 3. Proper use of double Identifiers 4. Medication administration using the 5 rights 5. Hand hygiene 6. Specimens are labeled at the bedside 7. Instruct patient/ patient sales representative adding machines about use of safety devices 8. Include patient/ patient sales representative adding machines in decisions related to safety Outcome: Progressing Note: Evaluation of progress towards goal: Pt. remains free from injury at this time. Problem: Inadequate Airway Clearance Goal: Patient will maintain patent airway Description: INTERVENTIONS 1. Assess and monitor breath sounds, cough and sputum (if present) 2. Monitor respiratory rate and oxygen saturation 3. Collaborate with respiratory therapy to administer medication, oxygen, and suitable airway clearance techniques as ordered 4. Position patient for maximum ventilatory efficiency; elevate head of bed at least 30 degrees if appropriate 5. Provide adequate fluid intake to liquify secretions if appropriate 6. Suction secretions as indicated to maintain patent airway 7. Instruct patient to turn, cough, and deep breathe; encourage incentive spirometer if indicated Note: Evaluation of progress towards goal: patient on room air. Spo2 wnl I had a significant discussion with POA at bedside. Discussed the findings of the swallow study today showing No Liquids recommendation and that we need to determine how to give fluids. Rediscussed PEG tube and hospice as well. At this time, she reported she wanted to talk it over with the rest of the family and come up with a decision. Gonzales La MD Promedic Physician Hospitalist DISCHARGE PLANNING NOTE Case discussed in daily transition rounds and chart reviewed by SW. Barriers to discharge include VSS, emt intermediate nutrition plan. Discharge Plan remains: [facility], pending acceptance. SNF will need auth. SW will continue to follow and is available should any further needs arise. - KRYSTIN IRVIN 04/16/23 10:19 AM Speech Therapy Videofluoroscopic Swallow Study Evaluation Educated pt on VFSS procedure and purpose of evaluation prior to exam. Pt verbalized understanding. Educated pt on diet recommendations and risk of penetration/aspiration following VFSS. Pt verbalized understanding of all recommendations however will need continued education and reinforcement. Impressions Oral Phase: Mild Pharyngeal Phase: Moderate Suspected Structural Abnormalities: Cervical osteophytes (large osteophytes C3-6) Functional Oral Intake Scale: Total oral intake of a single consistency Recommendations Diet Level: Level 4 Pureed Liquid Level: No liquids Alternate Means Of:: Nutrition, Hydration Compensatory Strategies: Small sips/bites, One sip/bite at a time, Double swallow, Follow aspiration precautions Supervision/Positioning: Patient at 90 degress for all PO intake (including medication), Patient to remain upright 15 minutes after meals, Supervise all PO intake, Assist with feeding Medications: In applesauce/puree, Crushed Referrals: Dysphagia therapy Discharge Recommendations: Other (comment) (continue ST services) Plan Frequency: 2-3days/week Duration: until discharge Treatments/Modalities: Safety strategies Need for skilled Speech Language Pathology Services to address deficits in feeding/swallowing due to a status decline resulting from small bowel obstruction Prognosis Services: Skilled GLUE MACHINE OPERATOR services to address above deficits Prognosis/Potential: Good Considerations: Age, Co-morbidities, Previous level of function Assessment Baseline Assessment Allergies Marked As Reviewed: Complete Consistencies Tested Views: Lateral position Level 0 Thin: Spoon, Cup Level 2 Mildly Thick: Spoon, Cup Level 3 Moderately Thick: Spoon, Cup Level 4 Pureed: Spoon Level 6 Soft & Bite-Sized: Spoon Regular Tested: Bite Modified Barium Swallow Impairment Profile (MBSImP) Oral Impairment: Yes Component 1: Lip Closure: no labial escape Component 2: Tongue Control During Bolus Hold: posterior escape of less than half of bolus Component 3: Bolus Preparation/Mastication: slow prolonged chewing/mashing with complete re-collection Component 4: Bolus Transport/Lingual Motion: slowed tongue motion Component 5: Oral Residue: residue collection on oral structures Component 6: Initiation of Pharyngeal Swallow: bolus head in valleculae Pharyngeal Impairment: Yes Component 7: Soft Palate Elevation: no bolus between soft palate/posterior pharyngeal wall Component 8: Laryngeal Elevation: partial superior movement of thyroid cartilage/partial approximation of arytenoids to epiglottic petiole Component 9: Anterior Hyoid Excursion: partial anterior movement Component 10: Epiglottic Movement: partial inversion Component 11: Laryngeal Vestibular Closure - Height of the Swallow: incomplete, narrow column of contrast/air in laryngeal vestibule Component 12: Pharyngeal Stripping Wave: present - diminished Component 13: Pharyngeal Contraction (A/P view only): could not be determined due to logistical reasons not related to physiologic impairment Component 14: Pharyngoesophageal Segment Opening: partial distension/partial duration, partial obstruction of flow Component 15: Tongue Base Retraction: narrow column of contrast/air between tongue base and posterior pharyngeal wall Component 16: Pharyngeal Residue: collection of residue within or on pharyngeal structures MBSImP Overall Impression Scores Oral Impairment Total: 8 Pharyngeal Impairment Total: 10 Penetration/Aspiration Scale Penetration/Aspiration Scale Performed: Yes Level 0 Thin: Contrast entered the airway, passed below the vocal folds, and no effort was made to eject Level 2 Mildly Thick: Contrast entered the airway, contacted the vocal folds, and was not ejected from the airway Level 3 Moderately Thick: Contrast entered the airway, remained above the vocal folds, and was not ejected from the airway Level 4 Pureed: Contrast did not enter the airway Level 6 Soft & Bite-Sized: Contrast did not enter the airway Regular: Contrast did not enter the airway Trialed Compensatory Strategies Strategies Utilized: Small sips/bites, Double swallow, Controlled bolus Effective: Other (comment) (semi effective) Pain Assessment Pain Assessment: No/denies pain Pain Score: 0 Plan Diagnosis Code Swallowing: R13.12 Dysphagia, oropharyngeal phase Speech Therapy Care Plan Speech Therapy Care Plan (Active) Template: ST - Dysphagia Problem: Swallowing Dates: Start: 04/16/23 Disciplines: GLUE MACHINE OPERATOR Goal: LTG: Patient will tolerate least restrictive diet recommended by GLUE MACHINE OPERATOR without signs and symptoms of aspiration 90% of the time Dates: Start: 04/16/23 Expected End: 03/12/24 Disciplines: GLUE MACHINE OPERATOR Goal: STG: Patient will complete safety strategies with minimal assistance during PO intake 90% of the time Dates: Start: 04/16/23 Expected End: 05/15/23 Disciplines: GLUE MACHINE OPERATOR Speech Therapy Care Plan (Resolved) There are no resolved problems. Principal Problem: SBO (small bowel obstruction) ([facility]) Problem: Pain Goal: Patient goal is pain score less than 4, able to rest, and participant in treatment plan as appropriate Description: INTERVENTIONS: 1. Encourage patient or legal sales representative adding machines to report early pain and ask for pain medicine when needed 2. Assess pain using appropriate pain scale and include the scale used when documenting 3. Administer analgesics based on type and severity of pain and evaluate response within appropriate time frame 4. Implement non-pharmacological measures as appropriate and evaluate response 6. Notify LIP if interventions ineffective or patient reports new pain 7. Monitor vital signs including pulse ox, end-tidal CO2 based on pain intervention 8. Reassess pain per policy 9. Teach patient or legal sales representative adding machines interventions for comforting Outcome: Progressing Note: Evaluation of progress towards goal: pt able to verbalize adequate comfort level using pain scale Problem: Safety Goal: Patient will be injury free during hospitalization Description: INTERVENTIONS: 1. Assess patient's risk for falls and implement fall prevention plan of care per policy 2. Provide and maintain a safe environment 3. Proper use of double Identifiers 4. Medication administration using the 5 rights 5. Hand hygiene 6. Specimens are labeled at the bedside 7. Instruct patient/ patient sales representative adding machines about use of safety devices 8. Include patient/ patient sales representative adding machines in decisions related to safety Outcome: Progressing Note: Evaluation of progress towards goal: pt remains free from injury, safe environment maintained, fall risk assessment complete Problem: Infection Goal: Absence of infection during hospitalization Description: Interventions: 1. Assess and monitor for signs and symptoms of infection 2. Monitor lab/diagnostic results 3. Monitor all insertion sites i.e., indwelling lines, tubes and drains 4. Monitor endotracheal (as able) and nasal secretions for changes in amount and color 5. Administer medications as ordered 6. Instruct and encourage patient and family to use good hand hygiene technique 7. Identify and instruct patient/patient sales representative adding machines in use of appropriate isolation precautions for identified infection/symptoms 8. Provide and discuss with patient/patient sales representative adding machines on educational MDRO sheet 9. Encourage and monitor nutritional status daily and consult seasonal recruiter if indicated 10. Implement neutropenic guidelines as needed 11. Review exposure to history of communicable disease and recent travel history on admission 12. Encourage annual influenza vaccine 13. Encourage pneumonia vaccine Outcome: Progressing Note: Evaluation of progress towards goal: pt remains free from infection, Problem: Knowledge Deficit Goal: Patient/patient sales representative adding machines demonstrates understanding of disease process, treatment plan, medications, and discharge instructions Description: INTERVENTIONS 1. Complete learning assessment and assess knowledge base 2. Provide teaching at level of understanding 3. Provide teaching via preferred learning method(s) Outcome: Progressing Note: Evaluation of progress towards goal: pt education complete Problem: Discharge Planning Goal: Discharge to post-acute care, other facility, or home with appropriate resources Description: Patient's goal is: INTERVENTIONS 1. Conduct assessment to determine patient/family and health care team treatment goals, and need for post-acute services based on payer coverage, community resources, and patient preferences, and barriers to discharge 2. Coordinate with Social work, Care Navigation, and Utilization Review to arrange appropriate level of services according to patient's needs based on patient preference and payer coverage in collaboration with the physician and health care team 3. Address psychosocial, clinical, and financial barriers to discharge as identified in assessment in conjunction with the patient/family and health care team 4. Consult appropriate ancillary services (i.e.. PT/OT/ST, etc) as needed 5. Communicate with and update the patient/family, physician, and health care team regarding progress on the discharge plan 6. Identify discharge learning needs (meds, wound care, etc). 7. Arrange for needed discharge transportation as appropriate Outcome: Progressing Note: Evaluation of progress towards goal: pt working towards discharge Problem: Moderate - High Risk Fall Score Description: [place] Fall Score of =/> 25 or indicated by [facility] Assessment Goal: Patient should be free from fall Description: Interventions: 1. [place] to environment 2. Hourly rounds addressing the 4 P's (Pain, Positioning, Possessions, Potty) 3. Clear area of hazards (spills, clutter, electrical cords, unnecessary equipment) 4. Place equipment (bed & TV controls, call light, phone, urinal) within reach 5. Encourage patient to wear glasses and hearing aides as appropriate 6. Maintain bed in lowest position 7. Lock wheels on bed/wheelchair 8. Provide adequate lighting, including night light 9. Assess need for additional bedding, food/fluids, pain med's prior to sleep/routinely 10. Provide gripper slippers or personal non-skid footwear 11. Teach patient and patient sales representative adding machines to maintain environment for safety and engage in all aspects of fall prevention program 12. Remind patient to call for help before getting out of bed 13. Initiate bed/chair/exit alarms supportive devices as appropriate, (chair wedge, no-skid floor mat, raised edge mattress, hip protectors) 14. Locate patient bed assignment for optimal visualization 15. Evaluate and identify Safe Patient Handling Equipment needs 16. Provide supervision when out of bed or chair 17. Utilize gait belt as needed to assist with ambulation 18. Place adaptive equipment (cane, walker) within reach 19. Request patient sales representative adding machines bring adaptive equipment/mobility aids from home or obtain and provide as needed 20. Consult pharmacy regarding effects of med's affecting mobility, cognition, and alternatives 21. Obtain physician order for PT if risk factors associated with mobility are present 22. Obtain physician order for OT as appropriate 23. Utilize diversional activities 24. Educate patient and patient sales representative adding machines how to maintain a safe environment during visitation times (notify nurse prior to leaving bedside) 25. Consider appropriateness of medical or non-medical dir 26. Set up voiding schedule as appropriate (every 2 hours) Outcome: Progressing Note: Evaluation of progress towards goal: pt remains free from falls, call light within reach, non skid slippers worn, adequate lighting provided, hourly rounds complete, bed in lowest locked position, encouraged to call for help Problem: Pain Goal: Patient goal is pain score less than 4, able to rest, and participant in treatment plan as appropriate Description: INTERVENTIONS: 1. Encourage patient or legal sales representative adding machines to report early pain and ask for pain medicine when needed 2. Assess pain using appropriate pain scale and include the scale used when documenting 3. Administer analgesics based on type and severity of pain and evaluate response within appropriate time frame 4. Implement non-pharmacological measures as appropriate and evaluate response 6. Notify LIP if interventions ineffective or patient reports new pain 7. Monitor vital signs including pulse ox, end-tidal CO2 based on pain intervention 8. Reassess pain per policy 9. Teach patient or legal sales representative adding machines interventions for comforting Outcome: Progressing Note: Evaluation of progress towards goal: patient denies pain, continue to monitor Problem: Safety Goal: Patient will be injury free during hospitalization Description: INTERVENTIONS: 1. Assess patient's risk for falls and implement fall prevention plan of care per policy 2. Provide and maintain a safe environment 3. Proper use of double Identifiers 4. Medication administration using the 5 rights 5. Hand hygiene 6. Specimens are labeled at the bedside 7. Instruct patient/ patient sales representative adding machines about use of safety devices 8. Include patient/ patient sales representative adding machines in decisions related to safety Outcome: Progressing Note: Evaluation of progress towards goal: patient remains free from injury, clutter removed from walkways and call light within reach, bed in low position and locked, non skid footwear on. Continue to monitor and educate on safety precautions Problem: Knowledge Deficit Goal: Patient/patient sales representative adding machines demonstrates understanding of disease process, treatment plan, medications, and discharge instructions Description: INTERVENTIONS 1. Complete learning assessment and assess knowledge base 2. Provide teaching at level of understanding 3. Provide teaching via preferred learning method(s) Outcome: Progressing Note: Evaluation of progress towards goal: patient educated on disease process and daily care plan, questions answered and patient states understanding. Continue to educate patient with any changes or procedures. Problem: Potential for Compromised Skin Integrity Goal: Skin integrity is maintained or improved Description: Patient's goal is: INTERVENTIONS 1. Perform initial skin assessment on admission and as needed 2. Turn patient every 2 hours and PRN 3. Relieve pressure to bony prominences 4. Avoid shearing 5. Keep skin clean and dry 6. Alternate a full bath with partial baths for elderly 7. Encourage use of lotion/moisturizer on skin 8. Monitor patient's hygiene practices 9. Float heels 10. Collaborate with interdisciplinary team and initiate plans and interventions as needed Outcome: Progressing Note: Evaluation of progress towards goal: continue to monitor and assess per shift and with repositioning, apply barrier cream as needed and skin protection as ordered. Encourage repositioning every 2 hours and change soiled linens. Problem: Pain Goal: Patient goal is pain score less than 4, able to rest, and participant in treatment plan as appropriate Description: INTERVENTIONS: 1. Encourage patient or legal sales representative adding machines to report early pain and ask for pain medicine when needed 2. Assess pain using appropriate pain scale and include the scale used when documenting 3. Administer analgesics based on type and severity of pain and evaluate response within appropriate time frame 4. Implement non-pharmacological measures as appropriate and evaluate response 6. Notify LIP if interventions ineffective or patient reports new pain 7. Monitor vital signs including pulse ox, end-tidal CO2 based on pain intervention 8. Reassess pain per policy 9. Teach patient or legal sales representative adding machines interventions for comforting Outcome: Progressing Note: Evaluation of progress towards goal: pain control with PRN pain meds, reassesing every 4 hours and as needed Problem: Safety Goal: Patient will be injury free during hospitalization Description: INTERVENTIONS: 1. Assess patient's risk for falls and implement fall prevention plan of care per policy 2. Provide and maintain a safe environment 3. Proper use of double Identifiers 4. Medication administration using the 5 rights 5. Hand hygiene 6. Specimens are labeled at the bedside 7. Instruct patient/ patient sales representative adding machines about use of safety devices 8. Include patient/ patient sales representative adding machines in decisions related to safety Outcome: Progressing Note: Evaluation of progress towards goal: patient is free from injury, maintained a safe environment, used double identifiers Problem: Infection Goal: Absence of infection during hospitalization Description: Interventions: 1. Assess and monitor for signs and symptoms of infection 2. Monitor lab/diagnostic results 3. Monitor all insertion sites i.e., indwelling lines, tubes and drains 4. Monitor endotracheal (as able) and nasal secretions for changes in amount and color 5. Administer medications as ordered 6. Instruct and encourage patient and family to use good hand hygiene technique 7. Identify and instruct patient/patient sales representative adding machines in use of appropriate isolation precautions for identified infection/symptoms 8. Provide and discuss with patient/patient sales representative adding machines on educational MDRO sheet 9. Encourage and monitor nutritional status daily and consult seasonal recruiter if indicated 10. Implement neutropenic guidelines as needed 11. Review exposure to history of communicable disease and recent travel history on admission 12. Encourage annual influenza vaccine 13. Encourage pneumonia vaccine Outcome: Progressing Note: Evaluation of progress towards goal: patient does not demonstrates any s/s of infection, monitoring labs, monitoring IV site, no signs of infiltration or infection, administering meds as ordered, instructed on use of hand hygiene, monitoring nutritional intake Problem: Knowledge Deficit Goal: Patient/patient sales representative adding machines demonstrates understanding of disease process, treatment plan, medications, and discharge instructions Description: INTERVENTIONS 1. Complete learning assessment and assess knowledge base 2. Provide teaching at level of understanding 3. Provide teaching via preferred learning method(s) Outcome: Progressing Note: Evaluation of progress towards goal: patient demonstrates understanding of treatment plan, provided teaching at level of patient's understanding Problem: Discharge Planning Goal: Discharge to post-acute care, other facility, or home with appropriate resources Description: Patient's goal is: INTERVENTIONS 1. Conduct assessment to determine patient/family and health care team treatment goals, and need for post-acute services based on payer coverage, community resources, and patient preferences, and barriers to discharge 2. Coordinate with Social work, Care Navigation, and Utilization Review to arrange appropriate level of services according to patient's needs based on patient preference and payer coverage in collaboration with the physician and health care team 3. Address psychosocial, clinical, and financial barriers to discharge as identified in assessment in conjunction with the patient/family and health care team 4. Consult appropriate ancillary services (i.e.. PT/OT/ST, etc) as needed 5. Communicate with and update the patient/family, physician, and health care team regarding progress on the discharge plan 6. Identify discharge learning needs (meds, wound care, etc). 7. Arrange for needed discharge transportation as appropriate Outcome: Progressing Note: Evaluation of progress towards goal: discharge planning in progress, social work and care navigation on board, PT/OT ordered Problem: Potential for Compromised Skin Integrity Goal: Skin integrity is maintained or improved Description: Patient's goal is: INTERVENTIONS 1. Perform initial skin assessment on admission and as needed 2. Turn patient every 2 hours and PRN 3. Relieve pressure to bony prominences 4. Avoid shearing 5. Keep skin clean and dry 6. Alternate a full bath with partial baths for elderly 7. Encourage use of lotion/moisturizer on skin 8. Monitor patient's hygiene practices 9. Float heels 10. Collaborate with interdisciplinary team and initiate plans and interventions as needed Outcome: Progressing Note: Evaluation of progress towards goal: skin is kept clean and dry, patient is able to turn self, encouraged use of lotion, foot of bed elevated, bed bath given daily or per patient's preference Goal: Patient's nutritional intake is adequate Description: Patient's goal is: INTERVENTIONS 1. Assess and monitor food intake and supplements, patient food preferences, nausea, vomiting, labs, oral cavity (gums, teeth, tongue, mucosa), proper denture fit, and cultural beliefs 2. Monitor for signs of hypoglycemia and hyperglycemia 3. Collaborate with interdisciplinary team and initiate plan and interventions as ordered 4. Monitor patient's weight 5. Assist patient with meals/food selection 6. Assist patient with eating 7. Allow adequate time for meals 8. Provide pleasant environment during mealtime 9. Increase social contact during mealtimes 10. Plan activities to conserve energy 11. Encourage/perform oral hygiene as appropriate 12. Encourage patient to take dietary supplement as ordered 13. Collaborate with clinical seasonal recruiter 14. Include patient/ patient's sales representative adding machines in decisions related to nutrition Outcome: Progressing Note: Evaluation of progress towards goal: monitoring patient's nutritional intake, monitoring weight, patient is able to feed self, monitoring for s/s of hypoglycemia and hyperglycemia, no nausea or vomiting Problem: Urinary Incontinence Goal: Perineal skin integrity is maintained or improved Description: INTERVENTIONS 1. Assess genitourinary system, perineal skin, labs (urinalysis), and history of incontinence to include past management, aggravating, and alleviating factors 2. Keep skin clean and dry 3. Apply skin protectant 4. Develop skin care regimen 5. Provide privacy when changing patients incontinence device to maintain their dignity 6. Consider placing an indwelling catheter 7. Collaborate with interdisciplinary team and initiate plans and interventions as needed Outcome: Progressing Note: Evaluation of progress towards goal: skin is kept clean and dry, gary care provided as needed, privacy provided, genitourinary system WNL Problem: Moderate - High Risk Fall Score Description: [place] Fall Score of =/> 25 or indicated by [facility] Assessment Goal: Patient should be free from fall Description: Interventions: 1. [place] to environment 2. Hourly rounds addressing the 4 P's (Pain, Positioning, Possessions, Potty) 3. Clear area of hazards (spills, clutter, electrical cords, unnecessary equipment) 4. Place equipment (bed & TV controls, call light, phone, urinal) within reach 5. Encourage patient to wear glasses and hearing aides as appropriate 6. Maintain bed in lowest position 7. Lock wheels on bed/wheelchair 8. Provide adequate lighting, including night light 9. Assess need for additional bedding, food/fluids, pain med's prior to sleep/routinely 10. Provide gripper slippers or personal non-skid footwear 11. Teach patient and patient sales representative adding machines to maintain environment for safety and engage in all aspects of fall prevention program 12. Remind patient to call for help before getting out of bed 13. Initiate bed/chair/exit alarms supportive devices as appropriate, (chair wedge, no-skid floor mat, raised edge mattress, hip protectors) 14. Locate patient bed assignment for optimal visualization 15. Evaluate and identify Safe Patient Handling Equipment needs 16. Provide supervision when out of bed or chair 17. Utilize gait belt as needed to assist with ambulation 18. Place adaptive equipment (cane, walker) within reach 19. Request patient sales representative adding machines bring adaptive equipment/mobility aids from home or obtain and provide as needed 20. Consult pharmacy regarding effects of med's affecting mobility, cognition, and alternatives 21. Obtain physician order for PT if risk factors associated with mobility are present 22. Obtain physician order for OT as appropriate 23. Utilize diversional activities 24. Educate patient and patient sales representative adding machines how to maintain a safe environment during visitation times (notify nurse prior to leaving bedside) 25. Consider appropriateness of medical or non-medical dir 26. Set up voiding schedule as appropriate (every 2 hours) Outcome: Progressing Note: Evaluation of progress towards goal: patient is oriented x4, room is clear of hazards, call light within reach, bed locked in lowest position, non slip socks on, side rails x2, hourly rounding done, patient knows to press call light if needing anything, PT/OT on board, personal items within reach, educated on fall risk Problem: Inadequate Airway Clearance Goal: Patient will maintain patent airway Description: INTERVENTIONS 1. Assess and monitor breath sounds, cough and sputum (if present) 2. Monitor respiratory rate and oxygen saturation 3. Collaborate with respiratory therapy to administer medication, oxygen, and suitable airway clearance techniques as ordered 4. Position patient for maximum ventilatory efficiency; elevate head of bed at least 30 degrees if appropriate 5. Provide adequate fluid intake to liquify secretions if appropriate 6. Suction secretions as indicated to maintain patent airway 7. Instruct patient to turn, cough, and deep breathe; encourage incentive spirometer if indicated Outcome: Progressing Note: Evaluation of progress towards goal: patient displays adequate ventilation, monitoring lung sounds, monitoring cough and sputum, monitoring RR and O2 sat, instructed on cough and deep breathing and use of IS, encouraged fluids, HOB regulated by patient at least 30 degrees to aid with ventilation, admnistering meds as ordered Problem: Pain Goal: Patient goal is pain score less than 4, able to rest, and participant in treatment plan as appropriate Description: INTERVENTIONS: 1. Encourage patient or legal sales representative adding machines to report early pain and ask for pain medicine when needed 2. Assess pain using appropriate pain scale and include the scale used when documenting 3. Administer analgesics based on type and severity of pain and evaluate response within appropriate time frame 4. Implement non-pharmacological measures as appropriate and evaluate response 6. Notify LIP if interventions ineffective or patient reports new pain 7. Monitor vital signs including pulse ox, end-tidal CO2 based on pain intervention 8. Reassess pain per policy 9. Teach patient or legal sales representative adding machines interventions for comforting Outcome: Progressing Note: Evaluation of progress towards goal: Pt remains free from falls and injury, medicated using 5 rights, hand hygiene in and out of room, specimens labeled at bedside Problem: Pain Goal: Patient goal is pain score less than 4, able to rest, and participant in treatment plan as appropriate Description: INTERVENTIONS: 1. Encourage patient or legal sales representative adding machines to report early pain and ask for pain medicine when needed 2. Assess pain using appropriate pain scale and include the scale used when documenting 3. Administer analgesics based on type and severity of pain and evaluate response within appropriate time frame 4. Implement non-pharmacological measures as appropriate and evaluate response 6. Notify LIP if interventions ineffective or patient reports new pain 7. Monitor vital signs including pulse ox, end-tidal CO2 based on pain intervention 8. Reassess pain per policy 9. Teach patient or legal sales representative adding machines interventions for comforting Outcome: Progressing Note: Evaluation of progress towards goal: pain control with PRN pain meds, reassesing every 4 hours and as needed Problem: Safety Goal: Patient will be injury free during hospitalization Description: INTERVENTIONS: 1. Assess patient's risk for falls and implement fall prevention plan of care per policy 2. Provide and maintain a safe environment 3. Proper use of double Identifiers 4. Medication administration using the 5 rights 5. Hand hygiene 6. Specimens are labeled at the bedside 7. Instruct patient/ patient sales representative adding machines about use of safety devices 8. Include patient/ patient sales representative adding machines in decisions related to safety Outcome: Progressing Note: Evaluation of progress towards goal: patient is free from injury, maintained a safe environment, used double identifiers Problem: Infection Goal: Absence of infection during hospitalization Description: Interventions: 1. Assess and monitor for signs and symptoms of infection 2. Monitor lab/diagnostic results 3. Monitor all insertion sites i.e., indwelling lines, tubes and drains 4. Monitor endotracheal (as able) and nasal secretions for changes in amount and color 5. Administer medications as ordered 6. Instruct and encourage patient and family to use good hand hygiene technique 7. Identify and instruct patient/patient sales representative adding machines in use of appropriate isolation precautions for identified infection/symptoms 8. Provide and discuss with patient/patient sales representative adding machines on educational MDRO sheet 9. Encourage and monitor nutritional status daily and consult seasonal recruiter if indicated 10. Implement neutropenic guidelines as needed 11. Review exposure to history of communicable disease and recent travel history on admission 12. Encourage annual influenza vaccine 13. Encourage pneumonia vaccine Outcome: Progressing Note: Evaluation of progress towards goal: patient does not demonstrates any s/s of infection, monitoring labs, monitoring IV site, no signs of infiltration or infection, administering meds as ordered, instructed on use of hand hygiene, monitoring nutritional intake Problem: Knowledge Deficit Goal: Patient/patient sales representative adding machines demonstrates understanding of disease process, treatment plan, medications, and discharge instructions Description: INTERVENTIONS 1. Complete learning assessment and assess knowledge base 2. Provide teaching at level of understanding 3. Provide teaching via preferred learning method(s) Outcome: Progressing Note: Evaluation of progress towards goal: patient demonstrates understanding of treatment plan, provided teaching at level of patient's understanding Problem: Discharge Planning Goal: Discharge to post-acute care, other facility, or home with appropriate resources Description: Patient's goal is: INTERVENTIONS 1. Conduct assessment to determine patient/family and health care team treatment goals, and need for post-acute services based on payer coverage, community resources, and patient preferences, and barriers to discharge 2. Coordinate with Social work, Care Navigation, and Utilization Review to arrange appropriate level of services according to patient's needs based on patient preference and payer coverage in collaboration with the physician and health care team 3. Address psychosocial, clinical, and financial barriers to discharge as identified in assessment in conjunction with the patient/family and health care team 4. Consult appropriate ancillary services (i.e.. PT/OT/ST, etc) as needed 5. Communicate with and update the patient/family, physician, and health care team regarding progress on the discharge plan 6. Identify discharge learning needs (meds, wound care, etc). 7. Arrange for needed discharge transportation as appropriate Outcome: Progressing Note: Evaluation of progress towards goal: discharge planning in progress, social work and care navigation on board, PT/OT ordered Problem: Potential for Compromised Skin Integrity Goal: Skin integrity is maintained or improved Description: Patient's goal is: INTERVENTIONS 1. Perform initial skin assessment on admission and as needed 2. Turn patient every 2 hours and PRN 3. Relieve pressure to bony prominences 4. Avoid shearing 5. Keep skin clean and dry 6. Alternate a full bath with partial baths for elderly 7. Encourage use of lotion/moisturizer on skin 8. Monitor patient's hygiene practices 9. Float heels 10. Collaborate with interdisciplinary team and initiate plans and interventions as needed Outcome: Progressing Note: Evaluation of progress towards goal: skin is kept clean and dry, patient is able to turn self, encouraged use of lotion, foot of bed elevated, bed bath given daily or per patient's preference Goal: Patient's nutritional intake is adequate Description: Patient's goal is: INTERVENTIONS 1. Assess and monitor food intake and supplements, patient food preferences, nausea, vomiting, labs, oral cavity (gums, teeth, tongue, mucosa), proper denture fit, and cultural beliefs 2. Monitor for signs of hypoglycemia and hyperglycemia 3. Collaborate with interdisciplinary team and initiate plan and interventions as ordered 4. Monitor patient's weight 5. Assist patient with meals/food selection 6. Assist patient with eating 7. Allow adequate time for meals 8. Provide pleasant environment during mealtime 9. Increase social contact during mealtimes 10. Plan activities to conserve energy 11. Encourage/perform oral hygiene as appropriate 12. Encourage patient to take dietary supplement as ordered 13. Collaborate with clinical seasonal recruiter 14. Include patient/ patient's sales representative adding machines in decisions related to nutrition Outcome: Progressing Note: Evaluation of progress towards goal: monitoring patient's nutritional intake, monitoring weight, patient is able to feed self, monitoring for s/s of hypoglycemia and hyperglycemia, no nausea or vomiting Problem: Urinary Incontinence Goal: Perineal skin integrity is maintained or improved Description: INTERVENTIONS 1. Assess genitourinary system, perineal skin, labs (urinalysis), and history of incontinence to include past management, aggravating, and alleviating factors 2. Keep skin clean and dry 3. Apply skin protectant 4. Develop skin care regimen 5. Provide privacy when changing patients incontinence device to maintain their dignity 6. Consider placing an indwelling catheter 7. Collaborate with interdisciplinary team and initiate plans and interventions as needed Outcome: Progressing Note: Evaluation of progress towards goal: skin is kept clean and dry, gary care provided as needed, privacy provided, genitourinary system WNL Problem: Moderate - High Risk Fall Score Description: [place] Fall Score of =/> 25 or indicated by [facility] Assessment Goal: Patient should be free from fall Description: Interventions: 1. [place] to environment 2. Hourly rounds addressing the 4 P's (Pain, Positioning, Possessions, Potty) 3. Clear area of hazards (spills, clutter, electrical cords, unnecessary equipment) 4. Place equipment (bed & TV controls, call light, phone, urinal) within reach 5. Encourage patient to wear glasses and hearing aides as appropriate 6. Maintain bed in lowest position 7. Lock wheels on bed/wheelchair 8. Provide adequate lighting, including night light 9. Assess need for additional bedding, food/fluids, pain med's prior to sleep/routinely 10. Provide gripper slippers or personal non-skid footwear 11. Teach patient and patient sales representative adding machines to maintain environment for safety and engage in all aspects of fall prevention program 12. Remind patient to call for help before getting out of bed 13. Initiate bed/chair/exit alarms supportive devices as appropriate, (chair wedge, no-skid floor mat, raised edge mattress, hip protectors) 14. Locate patient bed assignment for optimal visualization 15. Evaluate and identify Safe Patient Handling Equipment needs 16. Provide supervision when out of bed or chair 17. Utilize gait belt as needed to assist with ambulation 18. Place adaptive equipment (cane, walker) within reach 19. Request patient sales representative adding machines bring adaptive equipment/mobility aids from home or obtain and provide as needed 20. Consult pharmacy regarding effects of med's affecting mobility, cognition, and alternatives 21. Obtain physician order for PT if risk factors associated with mobility are present 22. Obtain physician order for OT as appropriate 23. Utilize diversional activities 24. Educate patient and patient sales representative adding machines how to maintain a safe environment during visitation times (notify nurse prior to leaving bedside) 25. Consider appropriateness of medical or non-medical dir 26. Set up voiding schedule as appropriate (every 2 hours) Outcome: Progressing Note: Evaluation of progress towards goal: patient is oriented x4, room is clear of hazards, call light within reach, bed locked in lowest position, non slip socks on, side rails x2, hourly rounding done, patient knows to press call light if needing anything, PT/OT on board, personal items within reach, educated on fall risk Problem: Inadequate Airway Clearance Goal: Patient will maintain patent airway Description: INTERVENTIONS 1. Assess and monitor breath sounds, cough and sputum (if present) 2. Monitor respiratory rate and oxygen saturation 3. Collaborate with respiratory therapy to administer medication, oxygen, and suitable airway clearance techniques as ordered 4. Position patient for maximum ventilatory efficiency; elevate head of bed at least 30 degrees if appropriate 5. Provide adequate fluid intake to liquify secretions if appropriate 6. Suction secretions as indicated to maintain patent airway 7. Instruct patient to turn, cough, and deep breathe; encourage incentive spirometer if indicated Outcome: Progressing Note: Evaluation of progress towards goal: monitoring lung sounds, no cough, respiratory rate and SpO2 WNL, patient displays adequate ventilation, HOB regulated by patient, encouraged coughing and deep breathing, encouraged use of incentive spirometer Problem: Pain Goal: Patient goal is pain score less than 4, able to rest, and participant in treatment plan as appropriate Description: INTERVENTIONS: 1. Encourage patient or legal sales representative adding machines to report early pain and ask for pain medicine when needed 2. Assess pain using appropriate pain scale and include the scale used when documenting 3. Administer analgesics based on type and severity of pain and evaluate response within appropriate time frame 4. Implement non-pharmacological measures as appropriate and evaluate response 6. Notify LIP if interventions ineffective or patient reports new pain 7. Monitor vital signs including pulse ox, end-tidal CO2 based on pain intervention 8. Reassess pain per policy 9. Teach patient or legal sales representative adding machines interventions for comforting Outcome: Progressing Note: Evaluation of progress towards goal: Patient's pain is assessed and documented with appropriate pain scale. Patient's pain is relieved with PRN medications. Will continue to assess and monitor per hospital policy. DISCHARGE PLANNING NOTE Referral sent to [facility], [facility], [facility] in [place] (P# ; F# ) Neurology was asked to assess the patient's VNS stimulator due to concerns that it may be causing the patient's bradycardia. The VNS stimulator was interrogated and found to have no faults or errors. The patient does have an Autostimulation program built in. Due to this concern the patient's primary neurologist who manages the VNS, Dr. Shawnee Toribio, was reached out to for further clarification. She is a part of [facility] (#[phone]) and they were contacted and state that the patient still follows with the above neurologist. He was last seen in January of 2023 and according to the last note the VNS auto-stimulator function is turned off and not active at this time; If there are concerns for ongoing issues, it can be turned on. Due to this, it is unlikely that the VNS is causing the patient's bradycardia. The only way to activate the VNS is if someone manually does so using a magnet and if that was to happen it would be a brief event where the VNS was turned on and once off it would have to be manually turned on again. Ultimately, neurology does not believe the VNS is contributing to the patient's bradycardia. Associated attestation - Romana Calvo MD - 04/13/2023 4:30 PM EST Discussed plan of care with resident and agree with the above. Query Response Note CDI QUERY TEXT: Clarification of Clinical Diagnostic Findings [id number] Disclaimer: By submitting this query, we are merely seeking further clarification of documentation to accurately reflect all conditions that you are monitoring, evaluating, treating or that extend the hospitalization or utilize additional resources of care. Please utilize your independent clinical judgment when addressing the question(s) below. Dr. La, 1) Based on the clinical findings noted below regarding low platelets, could you please indicate if the patient has any additional related diagnoses or conditions, such as: - Thrombocytopenia - Clinical findings are insignificant, no additional diagnosis - Other, please specify - Unable to determine/ unknown Clinical Findings: Platelet trend: 224, 153, 148, 118, 132, 136. Background: Patient currently admitted with Small Bowel Obstruction. Patient also noted to have Chronic normocytic anemia secondary to iron deficiency, anemia of chronic disease, B12 deficiency per 04/12 progress note. Please document any of the above specifications within the progress notes and/or discharge summary or as response to this query. The Clinical Documentation Integrity (CDI) staff are working remotely. If you have any questions or concerns regarding this query, please feel free to contact me. Lola FRANCISCO, RN Clinical Documentation Selenium Plant Operator [facility] Clinical Revenue Cycle Email: [email or web address] The patient's Clinical Indicators include: See Query. CDI RESPONSE TEXT: Thrombocytopenia Query created by: Floresita Arroyo on 04/13/2023 8:24 AM Electronically signed by: Gonzales La MD 04/13/2023 8:51 AM Problem: Pain Goal: Patient goal is pain score less than 4, able to rest, and participant in treatment plan as appropriate Description: INTERVENTIONS: 1. Encourage patient or legal sales representative adding machines to report early pain and ask for pain medicine when needed 2. Assess pain using appropriate pain scale and include the scale used when documenting 3. Administer analgesics based on type and severity of pain and evaluate response within appropriate time frame 4. Implement non-pharmacological measures as appropriate and evaluate response 6. Notify LIP if interventions ineffective or patient reports new pain 7. Monitor vital signs including pulse ox, end-tidal CO2 based on pain intervention 8. Reassess pain per policy 9. Teach patient or legal sales representative adding machines interventions for comforting Outcome: Progressing Note: Evaluation of progress towards goal: Patient currently resting comfortably in bed, patient unable to verbalize pain score. Problem: Safety Goal: Patient will be injury free during hospitalization Description: INTERVENTIONS: 1. Assess patient's risk for falls and implement fall prevention plan of care per policy 2. Provide and maintain a safe environment 3. Proper use of double Identifiers 4. Medication administration using the 5 rights 5. Hand hygiene 6. Specimens are labeled at the bedside 7. Instruct patient/ patient sales representative adding machines about use of safety devices 8. Include patient/ patient sales representative adding machines in decisions related to safety Outcome: Progressing Note: Evaluation of progress towards goal: Patient will remain free of falls during stay. Patient verbalizes needs to nurse. We are placing patients items within reach, keep room free of clutter, provide adequate lighting and instruct to call before attempting to get out of bed unassisted. Problem: Infection Goal: Absence of infection during hospitalization Description: Interventions: 1. Assess and monitor for signs and symptoms of infection 2. Monitor lab/diagnostic results 3. Monitor all insertion sites i.e., indwelling lines, tubes and drains 4. Monitor endotracheal (as able) and nasal secretions for changes in amount and color 5. Administer medications as ordered 6. Instruct and encourage patient and family to use good hand hygiene technique 7. Identify and instruct patient/patient sales representative adding machines in use of appropriate isolation precautions for identified infection/symptoms 8. Provide and discuss with patient/patient sales representative adding machines on educational MDRO sheet 9. Encourage and monitor nutritional status daily and consult seasonal recruiter if indicated 10. Implement neutropenic guidelines as needed 11. Review exposure to history of communicable disease and recent travel history on admission 12. Encourage annual influenza vaccine 13. Encourage pneumonia vaccine Outcome: Progressing Note: Evaluation of progress towards goal: Nurse is assessing lines and drains for infection, using required precaution to prevent infection and using cleaning techniques. Problem: Knowledge Deficit Goal: Patient/patient sales representative adding machines demonstrates understanding of disease process, treatment plan, medications, and discharge instructions Description: INTERVENTIONS 1. Complete learning assessment and assess knowledge base 2. Provide teaching at level of understanding 3. Provide teaching via preferred learning method(s) Outcome: Progressing Note: Evaluation of progress towards goal: Patient is provided with education about new medications, procedures interventions. Patient listens to nursing education and understands the material, it is reinforced when patient needs further education. Patient asks questions when needed and is asked to repeat back information to reinforce learning. Problem: Discharge Planning Goal: Discharge to post-acute care, other facility, or home with appropriate resources Description: Patient's goal is: INTERVENTIONS 1. Conduct assessment to determine patient/family and health care team treatment goals, and need for post-acute services based on payer coverage, community resources, and patient preferences, and barriers to discharge 2. Coordinate with Social work, Care Navigation, and Utilization Review to arrange appropriate level of services according to patient's needs based on patient preference and payer coverage in collaboration with the physician and health care team 3. Address psychosocial, clinical, and financial barriers to discharge as identified in assessment in conjunction with the patient/family and health care team 4. Consult appropriate ancillary services (i.e.. PT/OT/ST, etc) as needed 5. Communicate with and update the patient/family, physician, and health care team regarding progress on the discharge plan 6. Identify discharge learning needs (meds, wound care, etc). 7. Arrange for needed discharge transportation as appropriate Outcome: Progressing Note: Evaluation of progress towards goal: at this time, plan to dc back to alf. Additional Comments: Problem: Safety Goal: Patient will be injury free during hospitalization Description: INTERVENTIONS: 1. Assess patient's risk for falls and implement fall prevention plan of care per policy 2. Provide and maintain a safe environment 3. Proper use of double Identifiers 4. Medication administration using the 5 rights 5. Hand hygiene 6. Specimens are labeled at the bedside 7. Instruct patient/ patient sales representative adding machines about use of safety devices 8. Include patient/ patient sales representative adding machines in decisions related to safety Outcome: Progressing Note: Evaluation of progress towards goal: Pt remains free from falls and injury, medicated using 5 rights, hand hygiene in and out of room, specimens labeled at bedside DISCHARGE PLANNING NOTE Per RN during discharge transition rounds, barriers to discharge are: failed swallow study, nutrition plan, possible hospice. Discharge Plan: TBD. Plan for now is to return to [facility]. Fence Supervisor will continue to follow for any discharge needs. - Paty Balderas RN 04/12/23 11:36 AM Images from the original note were not included. [facility] [address] [place] [address] SIGNIFICANT EVENT Amol Taylor Attempted to see patient today. Currently off floor for testing. PHYSICAL EXAM Vitals: 04/11/23 2348 04/11/23 2354 04/12/23 0332 04/12/23 0735 BP: 96/64 105/78 112/52 141/53 Pulse: (!) 42 (!) 38 (!) 42 Resp: (!) 28 23 20 Temp: 36.8 C (98.2 F) 36.9 C (98.4 F) 36.6 C (97.8 F) 36.2 C (97.2 F) TempSrc: Temporal Axillary Tympanic Oral SpO2: 94% 99% 98% Weight: 79.4 kg (175 lb 0.7 oz) Height: Gen: Heart:: Lungs: LABS CBC: Results from last 7 days Lab Units 04/12/23 0634 04/11/23 0445 04/10/23 0405 WBC X10E9/L 4.9 5.6 7.8 HEMOGLOBIN g/dL 10.7* 10.1* 10.8* HEMATOCRIT % 31.1* 30.5* 31.2* MCV fL 98 99 97 PLATELETS X10E9/L 132* 118* 148* BMP: Results from last 7 days Lab Units 04/12/23 0634 04/11/23 0445 04/10/23 0405 POTASSIUM mmol/L 3.9 4.0 4.0 CHLORIDE mmol/L 112* 112* 110* CO2 mmol/L 24 BUN mg/dL 17 14 17 CREATININE mg/dL 0.71 0.68 0.68 PT/INR: APTT: MAG: Results from last 7 days Lab Units 04/12/23 0634 04/11/23 1819 04/11/23 0445 MAGNESIUM mg/dL 1.6* 2.2 1.6* D Dimer: Troponin I ProBNP ABG: EKG: No results found. RADIOLOGY: Fluoroscopy swallow motility function Result Date: 04/12/2023 FL SWALLOW MOTILITY FUNCTION HISTORY: Oropharyngeal dysphagia COMPARISON: None TECHNIQUE: Video fluoroscopic swallow study was performed in conjunction with speech pathologist. Barium contrast materials of varying consistencies administered. FINDINGS: Fluoroscopy time: 2:26 Reference air kerma: 4.57 mGy Runs: 12 Slight aspiration with all liquid consistencies. Applesauce: One episode of slight aspiration.. Fruit: One episode of slight aspiration. Cracker: No definite penetration or aspiration. IMPRESSION: 1. Abnormal swallow study as detailed above. 2. Please correlate with dedicated speech pathology report for additional details and recommendations. Approved by Resident Bunny Murillo MD on 04/12/2023 9:18 AM IIrwin MD have personally reviewed the image(s) and agree with and/or edited the report Finalized by Irwin Rivera MD on 04/12/2023 9:43 AM PLAN Asymptomatic sinus bradycardia Presented for nausea/vomiting with small bowel obstruction MRDD Hypomagnesemia, replace History of seizures Chronic normocytic anemia History of vagal nerve stimulator Telemetry reviewed. Has been persistently sinus bradycardia without significant signs of high-degree AV block. No indication for pacemaker. Likely increased vagal tone. Will follow-up on echocardiogram. No further recommendations at this time Please call with any questions or concerns RALPH Piper This note was completed using a voice sidewalk repairer system. Every effort was made to ensure accuracy. However, inadvertent computerized sidewalk repairer errors may be present. RALPH Piper 04/12/23 1032 Speech Therapy Videofluoroscopic Swallow Study Evaluation Educated pt on VFSS procedure and purpose of evaluation prior to exam. Pt verbalized understanding. Impressions Oral Phase: Mild Pharyngeal Phase: Severe Functional Oral Intake Scale: No PO intake Recommendations Diet Level: NPO Liquid Level: No liquids Alternate Means Of:: Nutrition, Hydration Referrals: Dysphagia therapy Discharge Recommendations: Other (comment) (continue ST services) Plan Frequency: 2-3days/week Duration: until discharge Need for skilled Speech Language Pathology Services to address deficits in feeding/swallowing due to a status decline resulting from small bowel obstruction Prognosis Services: Skilled GLUE MACHINE OPERATOR services to address above deficits Prognosis/Potential: Good Considerations: Cognition, Co-morbidities, Previous level of function Assessment Baseline Assessment Additional Testing Results: Chest X-Ray Setting Prior to Admission: [facility] Respiratory Status: Room Air Behavior/Cognition: Alert, Cooperative Dentition: Adequate Vision: Functional for self-feeding Patient Positioning: Upright in bed Baseline Vocal Quality: Normal Volitional Cough: Weak Volitional Swallow: Delayed Laryngectomy: No Ability to Control Secretions: Yes Room Service: Non Appropriate for room service Feeding Assistance: Total assist Current Diet Type: Clear liquid Allergies Marked As Reviewed: Complete Consistencies Tested Views: Lateral position Level 0 Thin: Spoon, Cup Level 2 Mildly Thick: Cup, Spoon Level 3 Moderately Thick: Spoon, Cup Level 4 Pureed: Spoon Level 6 Soft & Bite-Sized: Spoon Regular Tested: Bite Modified Barium Swallow Impairment Profile (MBSImP) Oral Impairment: Yes Component 1: Lip Closure: no labial escape Component 2: Tongue Control During Bolus Hold: posterior escape of less than half of bolus Component 3: Bolus Preparation/Mastication: slow prolonged chewing/mashing with complete re-collection Component 4: Bolus Transport/Lingual Motion: slowed tongue motion Component 5: Oral Residue: residue collection on oral structures Component 6: Initiation of Pharyngeal Swallow: bolus head in valleculae Pharyngeal Impairment: Yes Component 7: Soft Palate Elevation: no bolus between soft palate/posterior pharyngeal wall Component 8: Laryngeal Elevation: partial superior movement of thyroid cartilage/partial approximation of arytenoids to epiglottic petiole Component 9: Anterior Hyoid Excursion: partial anterior movement Component 10: Epiglottic Movement: no inversion Component 11: Laryngeal Vestibular Closure - Height of the Swallow: incomplete, narrow column of contrast/air in laryngeal vestibule Component 12: Pharyngeal Stripping Wave: present - diminished Component 13: Pharyngeal Contraction (A/P view only): could not be determined due to logistical reasons not related to physiologic impairment Component 14: Pharyngoesophageal Segment Opening: partial distension/partial duration, partial obstruction of flow Component 15: Tongue Base Retraction: narrow column of contrast/air between tongue base and posterior pharyngeal wall Component 16: Pharyngeal Residue: collection of residue within or on pharyngeal structures MBSImP Overall Impression Scores Oral Impairment Total: 8 Pharyngeal Impairment Total: 11 Penetration/Aspiration Scale Penetration/Aspiration Scale Performed: Yes Level 0 Thin: Contrast entered the airway, passed below the vocal folds, and no effort was made to eject Level 2 Mildly Thick: Contrast entered the airway, passed below the vocal folds, and no effort was made to eject Level 3 Moderately Thick: Contrast entered the airway, passed below the vocal folds, and no effort was made to eject Level 4 Pureed: Contrast entered the airway, passed below the vocal folds, and no effort was made to eject Level 6 Soft & Bite-Sized: Contrast entered the airway, passed below the vocal folds, and no effort was made to eject Regular: Contrast entered the airway, passed below the vocal folds, and no effort was made to eject Trialed Compensatory Strategies Strategies Utilized: Small sips/bites, Double swallow, Controlled bolus Effective: No Pain Assessment Pain Assessment: No/denies pain Plan Diagnosis Code Swallowing: R13.12 Dysphagia, oropharyngeal phase Speech Therapy Care Plan Speech Therapy Care Plan (Active) There are no active problems. Speech Therapy Care Plan (Resolved) There are no resolved problems. Principal Problem: SBO (small bowel obstruction) ([facility]) Problem: Pain Goal: Patient goal is pain score less than 4, able to rest, and participant in treatment plan as appropriate Description: INTERVENTIONS: 1. Encourage patient or legal sales representative adding machines to report early pain and ask for pain medicine when needed 2. Assess pain using appropriate pain scale and include the scale used when documenting 3. Administer analgesics based on type and severity of pain and evaluate response within appropriate time frame 4. Implement non-pharmacological measures as appropriate and evaluate response 5. Consider cultural and social influences on pain and pain management 6. Notify LIP if interventions ineffective or patient reports new pain 7. Monitor vital signs including pulse ox, end-tidal CO2 based on pain intervention 8. Reassess pain per policy 9. Teach patient or legal sales representative adding machines interventions for comforting Outcome: Progressing Note: Evaluation of progress towards goal: Patient will report pain level less than 5 this shift .Patient able to report pain as needed. Pain managed with PRN pain medications. Problem: Safety Goal: Patient will be injury free during hospitalization Description: INTERVENTIONS: 1. Assess patient's risk for falls and implement fall prevention plan of care per policy 2. Provide and maintain a safe environment 3. Proper use of double Identifiers 4. Medication administration using the 5 rights 5. Hand hygiene 6. Specimens are labeled at the bedside 7. Instruct patient/ patient sales representative adding machines about use of safety devices 8. Include patient/ patient sales representative adding machines in decisions related to safety Outcome: Progressing Note: Evaluation of progress towards goal: Pt remains free from falls and injury, medicated using 5 rights, hand hygiene in and out of room, specimens labeled at bedside Problem: Infection Goal: Absence of infection during hospitalization Description: Interventions: 1. Assess and monitor for signs and symptoms of infection 2. Monitor lab/diagnostic results 3. Monitor all insertion sites i.e., indwelling lines, tubes and drains 4. Monitor endotracheal (as able) and nasal secretions for changes in amount and color 5. Administer medications as ordered 6. Instruct and encourage patient and family to use good hand hygiene technique 7. Identify and instruct patient/patient sales representative adding machines in use of appropriate isolation precautions for identified infection/symptoms 8. Provide and discuss with patient/patient sales representative adding machines on educational MDRO sheet 9. Encourage and monitor nutritional status daily and consult seasonal recruiter if indicated 10. Implement neutropenic guidelines as needed 11. Review exposure to history of communicable disease and recent travel history on admission 12. Encourage annual influenza vaccine 13. Encourage pneumonia vaccine Outcome: Progressing Note: Evaluation of progress towards goal: Afebrile, labs and VS monitored Problem: Knowledge Deficit Goal: Patient/patient sales representative adding machines demonstrates understanding of disease process, treatment plan, medications, and discharge instructions Description: INTERVENTIONS 1. Complete learning assessment and assess knowledge base 2. Provide teaching at level of understanding 3. Provide teaching via preferred learning method(s) Outcome: Progressing Note: Evaluation of progress towards goal: Patient updated & verbalizes understanding of POC along with medication education. Will continue to update patient. Patient is encouraged to voice concerns or ask questions regarding care. Problem: Discharge Planning Goal: Discharge to post-acute care, other facility, or home with appropriate resources Description: Patient's goal is: INTERVENTIONS 1. Conduct assessment to determine patient/family and health care team treatment goals, and need for post-acute services based on payer coverage, community resources, and patient preferences, and barriers to discharge 2. Coordinate with Social work, Care Navigation, and Utilization Review to arrange appropriate level of services according to patient's needs based on patient preference and payer coverage in collaboration with the physician and health care team 3. Address psychosocial, clinical, and financial barriers to discharge as identified in assessment in conjunction with the patient/family and health care team 4. Consult appropriate ancillary services (i.e.. PT/OT/ST, etc) as needed 5. Communicate with and update the patient/family, physician, and health care team regarding progress on the discharge plan 6. Identify discharge learning needs (meds, wound care, etc). 7. Arrange for needed discharge transportation as appropriate Outcome: Progressing Note: Evaluation of progress towards goal: Treatment team working to resolve barriers prior to patient discharge and to achieve discharge goals of returning to alf. Problem: Safety Goal: Patient will be injury free during hospitalization Description: INTERVENTIONS: 1. Assess patient's risk for falls and implement fall prevention plan of care per policy 2. Provide and maintain a safe environment 3. Proper use of double Identifiers 4. Medication administration using the 5 rights 5. Hand hygiene 6. Specimens are labeled at the bedside 7. Instruct patient/ patient sales representative adding machines about use of safety devices 8. Include patient/ patient sales representative adding machines in decisions related to safety Outcome: Progressing Note: Evaluation of progress towards goal: Pt remains free from falls and injury, medicated using 5 rights, hand hygiene in and out of room, specimens labeled at bedside No acute surgical intervention. Patient is tolerating a diet and having bowel function. General Surgery will sign off. Please do not hesitate to call with any questions. Ernesto Serra MD General Surgery Resident, PGY-1 Problem: Pain Goal: Patient goal is pain score less than 4, able to rest, and participant in treatment plan as appropriate Description: INTERVENTIONS: 1. Encourage patient or legal sales representative adding machines to report early pain and ask for pain medicine when needed 2. Assess pain using appropriate pain scale and include the scale used when documenting 3. Administer analgesics based on type and severity of pain and evaluate response within appropriate time frame 4. Implement non-pharmacological measures as appropriate and evaluate response 5. Consider cultural and social influences on pain and pain management 6. Notify LIP if interventions ineffective or patient reports new pain 7. Monitor vital signs including pulse ox, end-tidal CO2 based on pain intervention 8. Reassess pain per policy 9. Teach patient or legal sales representative adding machines interventions for comforting Outcome: Progressing Note: Evaluation of progress towards goal: Patient's pain is assessed and documented with appropriate pain scale. Patient does not report pain thus far. Will continue to assess and monitor Problem: Safety Goal: Patient will be injury free during hospitalization Description: INTERVENTIONS: 1. Assess patient's risk for falls and implement fall prevention plan of care per policy 2. Provide and maintain a safe environment 3. Proper use of double Identifiers 4. Medication administration using the 5 rights 5. Hand hygiene 6. Specimens are labeled at the bedside 7. Instruct patient/ patient sales representative adding machines about use of safety devices 8. Include patient/ patient sales representative adding machines in decisions related to safety Outcome: Progressing Note: Evaluation of progress towards goal: Pt remains free from falls and injury, medicated using 5 rights, hand hygiene in and out of room, specimens labeled at bedside Problem: Infection Goal: Absence of infection during hospitalization Description: Interventions: 1. Assess and monitor for signs and symptoms of infection 2. Monitor lab/diagnostic results 3. Monitor all insertion sites i.e., indwelling lines, tubes and drains 4. Monitor endotracheal (as able) and nasal secretions for changes in amount and color 5. Administer medications as ordered 6. Instruct and encourage patient and family to use good hand hygiene technique 7. Identify and instruct patient/patient sales representative adding machines in use of appropriate isolation precautions for identified infection/symptoms 8. Provide and discuss with patient/patient sales representative adding machines on educational MDRO sheet 9. Encourage and monitor nutritional status daily and consult seasonal recruiter if indicated 10. Implement neutropenic guidelines as needed 11. Review exposure to history of communicable disease and recent travel history on admission 12. Encourage annual influenza vaccine 13. Encourage pneumonia vaccine Outcome: Progressing Note: Evaluation of progress towards goal: Afebrile, labs and VS monitored Problem: Knowledge Deficit Goal: Patient/patient sales representative adding machines demonstrates understanding of disease process, treatment plan, medications, and discharge instructions Description: INTERVENTIONS 1. Complete learning assessment and assess knowledge base 2. Provide teaching at level of understanding 3. Provide teaching via preferred learning method(s) Outcome: Progressing Note: Evaluation of progress towards goal: Patient updated & verbalizes understanding of POC along with medication education. Will continue to update patient. Patient is encouraged to voice concerns or ask questions regarding care. Problem: Discharge Planning Goal: Discharge to post-acute care, other facility, or home with appropriate resources Description: Patient's goal is: INTERVENTIONS 1. Conduct assessment to determine patient/family and health care team treatment goals, and need for post-acute services based on payer coverage, community resources, and patient preferences, and barriers to discharge 2. Coordinate with Social work, Care Navigation, and Utilization Review to arrange appropriate level of services according to patient's needs based on patient preference and payer coverage in collaboration with the physician and health care team 3. Address psychosocial, clinical, and financial barriers to discharge as identified in assessment in conjunction with the patient/family and health care team 4. Consult appropriate ancillary services (i.e.. PT/OT/ST, etc) as needed 5. Communicate with and update the patient/family, physician, and health care team regarding progress on the discharge plan 6. Identify discharge learning needs (meds, wound care, etc). 7. Arrange for needed discharge transportation as appropriate Outcome: Progressing Note: Evaluation of progress towards goal: Treatment team working to resolve barriers prior to patient discharge and to achieve discharge goals of returning home, or being admitted to SNF . Problem: Potential for Compromised Skin Integrity Goal: Skin integrity is maintained or improved Description: Patient's goal is: INTERVENTIONS 1. Perform initial skin assessment on admission and as needed 2. Turn patient every 2 hours and PRN 3. Relieve pressure to bony prominences 4. Avoid shearing 5. Keep skin clean and dry 6. Alternate a full bath with partial baths for elderly 7. Encourage use of lotion/moisturizer on skin 8. Monitor patient's hygiene practices 9. Float heels 10. Collaborate with interdisciplinary team and initiate plans and interventions as needed Outcome: Progressing Note: Evaluation of progress towards goal: skin intact, pt turns self Goal: Patient's nutritional intake is adequate Description: Patient's goal is: INTERVENTIONS 1. Assess and monitor food intake and supplements, patient food preferences, nausea, vomiting, labs, oral cavity (gums, teeth, tongue, mucosa), proper denture fit, and cultural beliefs 2. Monitor for signs of hypoglycemia and hyperglycemia 3. Collaborate with interdisciplinary team and initiate plan and interventions as ordered 4. Monitor patient's weight 5. Assist patient with meals/food selection 6. Assist patient with eating 7. Allow adequate time for meals 8. Provide pleasant environment during mealtime 9. Increase social contact during mealtimes 10. Plan activities to conserve energy 11. Encourage/perform oral hygiene as appropriate 12. Encourage patient to take dietary supplement as ordered 13. Collaborate with clinical seasonal recruiter 14. Include patient/ patient's sales representative adding machines in decisions related to nutrition Outcome: Progressing Note: Evaluation of progress towards goal: tolerating clears Problem: Urinary Incontinence Goal: Perineal skin integrity is maintained or improved Description: INTERVENTIONS 1. Assess genitourinary system, perineal skin, labs (urinalysis), and history of incontinence to include past management, aggravating, and alleviating factors 2. Keep skin clean and dry 3. Apply skin protectant 4. Develop skin care regimen 5. Provide privacy when changing patients incontinence device to maintain their dignity 6. Consider placing an indwelling catheter 7. Collaborate with interdisciplinary team and initiate plans and interventions as needed Outcome: Progressing Note: Evaluation of progress towards goal: brief changes as needed Problem: Moderate - High Risk Fall Score Description: [place] Fall Score of =/> 25 or indicated by [facility] Assessment Goal: Patient should be free from fall Description: Interventions: 1. [place] to environment 2. Hourly rounds addressing the 4 P's (Pain, Positioning, Possessions, Potty) 3. Clear area of hazards (spills, clutter, electrical cords, unnecessary equipment) 4. Place equipment (bed & TV controls, call light, phone, urinal) within reach 5. Encourage patient to wear glasses and hearing aides as appropriate 6. Maintain bed in lowest position 7. Lock wheels on bed/wheelchair 8. Provide adequate lighting, including night light 9. Assess need for additional bedding, food/fluids, pain med's prior to sleep/routinely 10. Provide gripper slippers or personal non-skid footwear 11. Teach patient and patient sales representative adding machines to maintain environment for safety and engage in all aspects of fall prevention program 12. Remind patient to call for help before getting out of bed 13. Initiate bed/chair/exit alarms supportive devices as appropriate, (chair wedge, no-skid floor mat, raised edge mattress, hip protectors) 14. Locate patient bed assignment for optimal visualization 15. Evaluate and identify Safe Patient Handling Equipment needs 16. Provide supervision when out of bed or chair 17. Utilize gait belt as needed to assist with ambulation 18. Place adaptive equipment (cane, walker) within reach 19. Request patient sales representative adding machines bring adaptive equipment/mobility aids from home or obtain and provide as needed 20. Consult pharmacy regarding effects of med's affecting mobility, cognition, and alternatives 21. Obtain physician order for PT if risk factors associated with mobility are present 22. Obtain physician order for OT as appropriate 23. Utilize diversional activities 24. Educate patient and patient sales representative adding machines how to maintain a safe environment during visitation times (notify nurse prior to leaving bedside) 25. Consider appropriateness of medical or non-medical dir 26. Set up voiding schedule as appropriate (every 2 hours) Outcome: Progressing Note: Evaluation of progress towards goal: Patient remains free from falls and injuries. Patient's 5 P's addressed. Patient bed is in a locked position. Patient has call light for assistance. Will continue to monitor. Problem: Inadequate Airway Clearance Goal: Patient will maintain patent airway Description: INTERVENTIONS 1. Assess and monitor breath sounds, cough and sputum (if present) 2. Monitor respiratory rate and oxygen saturation 3. Collaborate with respiratory therapy to administer medication, oxygen, and suitable airway clearance techniques as ordered 4. Position patient for maximum ventilatory efficiency; elevate head of bed at least 30 degrees if appropriate 5. Provide adequate fluid intake to liquify secretions if appropriate 6. Suction secretions as indicated to maintain patent airway 7. Instruct patient to turn, cough, and deep breathe; encourage incentive spirometer if indicated Outcome: Progressing Note: Evaluation of progress towards goal: encouraged to cough and deep breathe, respiratory treatments as needed DISCHARGE PLANNING NOTE Per RN during discharge transition rounds, barriers to discharge are: clears, IVF, IV iron, iv seizure medications. Discharge Plan: Patient will return to [facility] Spoke with alf and patient will need transport back to facility on discharge. Fence Supervisor will continue to follow for any discharge needs. - Paty Balderas RN 04/11/23 10:31 AM Problem: Pain Goal: Patient goal is pain score less than 4, able to rest, and participant in treatment plan as appropriate Description: INTERVENTIONS: 1. Encourage patient or legal sales representative adding machines to report early pain and ask for pain medicine when needed 2. Assess pain using appropriate pain scale and include the scale used when documenting 3. Administer analgesics based on type and severity of pain and evaluate response within appropriate time frame 4. Implement non-pharmacological measures as appropriate and evaluate response 5. Consider cultural and social influences on pain and pain management 6. Notify LIP if interventions ineffective or patient reports new pain 7. Monitor vital signs including pulse ox, end-tidal CO2 based on pain intervention 8. Reassess pain per policy 9. Teach patient or legal sales representative adding machines interventions for comforting Outcome: Progressing Note: Evaluation of progress towards goal: Pt denies pain. Pt level of comfort will be maintained. Prn pain medications is available Problem: Pain Goal: Patient goal is pain score less than 4, able to rest, and participant in treatment plan as appropriate Description: INTERVENTIONS: 1. Encourage patient or legal sales representative adding machines to report early pain and ask for pain medicine when needed 2. Assess pain using appropriate pain scale and include the scale used when documenting 3. Administer analgesics based on type and severity of pain and evaluate response within appropriate time frame 4. Implement non-pharmacological measures as appropriate and evaluate response 5. Consider cultural and social influences on pain and pain management 6. Notify LIP if interventions ineffective or patient reports new pain 7. Monitor vital signs including pulse ox, end-tidal CO2 based on pain intervention 8. Reassess pain per policy 9. Teach patient or legal sales representative adding machines interventions for comforting Outcome: Progressing Note: Evaluation of progress towards goal: Patient's pain is assessed and documented with appropriate pain scale. Patient does not report pain thus far. Will continue to assess and monitor Problem: Safety Goal: Patient will be injury free during hospitalization Description: INTERVENTIONS: 1. Assess patient's risk for falls and implement fall prevention plan of care per policy 2. Provide and maintain a safe environment 3. Proper use of double Identifiers 4. Medication administration using the 5 rights 5. Hand hygiene 6. Specimens are labeled at the bedside 7. Instruct patient/ patient sales representative adding machines about use of safety devices 8. Include patient/ patient sales representative adding machines in decisions related to safety Outcome: Progressing Note: Evaluation of progress towards goal: Pt remains free from falls and injury, medicated using 5 rights, hand hygiene in and out of room, specimens labeled at bedside Problem: Infection Goal: Absence of infection during hospitalization Description: Interventions: 1. Assess and monitor for signs and symptoms of infection 2. Monitor lab/diagnostic results 3. Monitor all insertion sites i.e., indwelling lines, tubes and drains 4. Monitor endotracheal (as able) and nasal secretions for changes in amount and color 5. Administer medications as ordered 6. Instruct and encourage patient and family to use good hand hygiene technique 7. Identify and instruct patient/patient sales representative adding machines in use of appropriate isolation precautions for identified infection/symptoms 8. Provide and discuss with patient/patient sales representative adding machines on educational MDRO sheet 9. Encourage and monitor nutritional status daily and consult seasonal recruiter if indicated 10. Implement neutropenic guidelines as needed 11. Review exposure to history of communicable disease and recent travel history on admission 12. Encourage annual influenza vaccine 13. Encourage pneumonia vaccine Outcome: Progressing Note: Evaluation of progress towards goal: Afebrile, labs and VS monitored Problem: Knowledge Deficit Goal: Patient/patient sales representative adding machines demonstrates understanding of disease process, treatment plan, medications, and discharge instructions Description: INTERVENTIONS 1. Complete learning assessment and assess knowledge base 2. Provide teaching at level of understanding 3. Provide teaching via preferred learning method(s) Outcome: Progressing Note: Evaluation of progress towards goal: Patient updated & verbalizes understanding of POC along with medication education. Will continue to update patient. Patient is encouraged to voice concerns or ask questions regarding care. Problem: Discharge Planning Goal: Discharge to post-acute care, other facility, or home with appropriate resources Description: Patient's goal is: INTERVENTIONS 1. Conduct assessment to determine patient/family and health care team treatment goals, and need for post-acute services based on payer coverage, community resources, and patient preferences, and barriers to discharge 2. Coordinate with Social work, Care Navigation, and Utilization Review to arrange appropriate level of services according to patient's needs based on patient preference and payer coverage in collaboration with the physician and health care team 3. Address psychosocial, clinical, and financial barriers to discharge as identified in assessment in conjunction with the patient/family and health care team 4. Consult appropriate ancillary services (i.e.. PT/OT/ST, etc) as needed 5. Communicate with and update the patient/family, physician, and health care team regarding progress on the discharge plan 6. Identify discharge learning needs (meds, wound care, etc). 7. Arrange for needed discharge transportation as appropriate Outcome: Progressing Note: Evaluation of progress towards goal: Treatment team working to resolve barriers prior to patient discharge and to achieve discharge goals of returning home, or being admitted to SNF . Problem: Potential for Compromised Skin Integrity Goal: Skin integrity is maintained or improved Description: Patient's goal is: INTERVENTIONS 1. Perform initial skin assessment on admission and as needed 2. Turn patient every 2 hours and PRN 3. Relieve pressure to bony prominences 4. Avoid shearing 5. Keep skin clean and dry 6. Alternate a full bath with partial baths for elderly 7. Encourage use of lotion/moisturizer on skin 8. Monitor patient's hygiene practices 9. Float heels 10. Collaborate with interdisciplinary team and initiate plans and interventions as needed Outcome: Progressing Note: Evaluation of progress towards goal: skin intact, q 2 turn Goal: Patient's nutritional intake is adequate Description: Patient's goal is: INTERVENTIONS 1. Assess and monitor food intake and supplements, patient food preferences, nausea, vomiting, labs, oral cavity (gums, teeth, tongue, mucosa), proper denture fit, and cultural beliefs 2. Monitor for signs of hypoglycemia and hyperglycemia 3. Collaborate with interdisciplinary team and initiate plan and interventions as ordered 4. Monitor patient's weight 5. Assist patient with meals/food selection 6. Assist patient with eating 7. Allow adequate time for meals 8. Provide pleasant environment during mealtime 9. Increase social contact during mealtimes 10. Plan activities to conserve energy 11. Encourage/perform oral hygiene as appropriate 12. Encourage patient to take dietary supplement as ordered 13. Collaborate with clinical seasonal recruiter 14. Include patient/ patient's sales representative adding machines in decisions related to nutrition Outcome: Progressing Note: Evaluation of progress towards goal: NPO, IV fluids continued Problem: Urinary Incontinence Goal: Perineal skin integrity is maintained or improved Description: INTERVENTIONS 1. Assess genitourinary system, perineal skin, labs (urinalysis), and history of incontinence to include past management, aggravating, and alleviating factors 2. Keep skin clean and dry 3. Apply skin protectant 4. Develop skin care regimen 5. Provide privacy when changing patients incontinence device to maintain their dignity 6. Consider placing an indwelling catheter 7. Collaborate with interdisciplinary team and initiate plans and interventions as needed Outcome: Progressing Note: Evaluation of progress towards goal: brief changes as needed Problem: Moderate - High Risk Fall Score Description: [place] Fall Score of =/> 25 or indicated by [facility] Assessment Goal: Patient should be free from fall Description: Interventions: 1. [place] to environment 2. Hourly rounds addressing the 4 P's (Pain, Positioning, Possessions, Potty) 3. Clear area of hazards (spills, clutter, electrical cords, unnecessary equipment) 4. Place equipment (bed & TV controls, call light, phone, urinal) within reach 5. Encourage patient to wear glasses and hearing aides as appropriate 6. Maintain bed in lowest position 7. Lock wheels on bed/wheelchair 8. Provide adequate lighting, including night light 9. Assess need for additional bedding, food/fluids, pain med's prior to sleep/routinely 10. Provide gripper slippers or personal non-skid footwear 11. Teach patient and patient sales representative adding machines to maintain environment for safety and engage in all aspects of fall prevention program 12. Remind patient to call for help before getting out of bed 13. Initiate bed/chair/exit alarms supportive devices as appropriate, (chair wedge, no-skid floor mat, raised edge mattress, hip protectors) 14. Locate patient bed assignment for optimal visualization 15. Evaluate and identify Safe Patient Handling Equipment needs 16. Provide supervision when out of bed or chair 17. Utilize gait belt as needed to assist with ambulation 18. Place adaptive equipment (cane, walker) within reach 19. Request patient sales representative adding machines bring adaptive equipment/mobility aids from home or obtain and provide as needed 20. Consult pharmacy regarding effects of med's affecting mobility, cognition, and alternatives 21. Obtain physician order for PT if risk factors associated with mobility are present 22. Obtain physician order for OT as appropriate 23. Utilize diversional activities 24. Educate patient and patient sales representative adding machines how to maintain a safe environment during visitation times (notify nurse prior to leaving bedside) 25. Consider appropriateness of medical or non-medical dir 26. Set up voiding schedule as appropriate (every 2 hours) Outcome: Progressing Note: Evaluation of progress towards goal: Patient remains free from falls and injuries. Patient's 5 P's addressed. Patient bed is in a locked position. Patient has call light for assistance. Will continue to monitor. Problem: Inadequate Airway Clearance Goal: Patient will maintain patent airway Description: INTERVENTIONS 1. Assess and monitor breath sounds, cough and sputum (if present) 2. Monitor respiratory rate and oxygen saturation 3. Collaborate with respiratory therapy to administer medication, oxygen, and suitable airway clearance techniques as ordered 4. Position patient for maximum ventilatory efficiency; elevate head of bed at least 30 degrees if appropriate 5. Provide adequate fluid intake to liquify secretions if appropriate 6. Suction secretions as indicated to maintain patent airway 7. Instruct patient to turn, cough, and deep breathe; encourage incentive spirometer if indicated Outcome: Progressing Note: Evaluation of progress towards goal: encouraged to cough an deep breathe, respiratory treatments as needed Problem: Inadequate Airway Clearance Goal: Patient will maintain patent airway Description: INTERVENTIONS 1. Assess and monitor breath sounds, cough and sputum (if present) 2. Monitor respiratory rate and oxygen saturation 3. Collaborate with respiratory therapy to administer medication, oxygen, and suitable airway clearance techniques as ordered 4. Position patient for maximum ventilatory efficiency; elevate head of bed at least 30 degrees if appropriate 5. Provide adequate fluid intake to liquify secretions if appropriate 6. Suction secretions as indicated to maintain patent airway 7. Instruct patient to turn, cough, and deep breathe; encourage incentive spirometer if indicated Outcome: Progressing Note: Evaluation of progress towards goal: SaO2 WNL on room air, aerosols prn as ordered. DISCHARGE PLANNING NOTE Per RN during discharge transition rounds, barriers to discharge are: NPO, NG-LIWS, IVF, iv seivure medications, IV iron, sof bowel follow through. Discharge Plan: Patient will return to [facility] Fence Supervisor will continue to follow for any discharge needs. - Paty Balderas RN 04/10/23 10:16 AM Problem: Pain Goal: Patient goal is pain score less than 4, able to rest, and participant in treatment plan as appropriate Description: INTERVENTIONS: 1. Encourage patient or legal sales representative adding machines to report early pain and ask for pain medicine when needed 2. Assess pain using appropriate pain scale and include the scale used when documenting 3. Administer analgesics based on type and severity of pain and evaluate response within appropriate time frame 4. Implement non-pharmacological measures as appropriate and evaluate response 5. Consider cultural and social influences on pain and pain management 6. Notify LIP if interventions ineffective or patient reports new pain 7. Monitor vital signs including pulse ox, end-tidal CO2 based on pain intervention 8. Reassess pain per policy 9. Teach patient or legal sales representative adding machines interventions for comforting Outcome: Progressing Note: Evaluation of progress towards goal: Pt denies pain. Pt level of comfort will be maintained Problem: Safety Goal: Patient will be injury free during hospitalization Description: INTERVENTIONS: 1. Assess patient's risk for falls and implement fall prevention plan of care per policy 2. Provide and maintain a safe environment 3. Proper use of double Identifiers 4. Medication administration using the 5 rights 5. Hand hygiene 6. Specimens are labeled at the bedside 7. Instruct patient/ patient sales representative adding machines about use of safety devices 8. Include patient/ patient sales representative adding machines in decisions related to safety Outcome: Progressing Note: Evaluation of progress towards goal: bed alarm on. Pt call light is within reach. Bed in lowest position. Hourly rounding Problem: Infection Goal: Absence of infection during hospitalization Description: Interventions: 1. Assess and monitor for signs and symptoms of infection 2. Monitor lab/diagnostic results 3. Monitor all insertion sites i.e., indwelling lines, tubes and drains 4. Monitor endotracheal (as able) and nasal secretions for changes in amount and color 5. Administer medications as ordered 6. Instruct and encourage patient and family to use good hand hygiene technique 7. Identify and instruct patient/patient sales representative adding machines in use of appropriate isolation precautions for identified infection/symptoms 8. Provide and discuss with patient/patient sales representative adding machines on educational MDRO sheet 9. Encourage and monitor nutritional status daily and consult seasonal recruiter if indicated 10. Implement neutropenic guidelines as needed 11. Review exposure to history of communicable disease and recent travel history on admission 12. Encourage annual influenza vaccine 13. Encourage pneumonia vaccine Outcome: Progressing Note: Evaluation of progress towards goal: Continue to monitor labs and vs Problem: Knowledge Deficit Goal: Patient/patient sales representative adding machines demonstrates understanding of disease process, treatment plan, medications, and discharge instructions Description: INTERVENTIONS 1. Complete learning assessment and assess knowledge base 2. Provide teaching at level of understanding 3. Provide teaching via preferred learning method(s) Outcome: Progressing Note: Evaluation of progress towards goal: Pt concerns addressed Problem: Discharge Planning Goal: Discharge to post-acute care, other facility, or home with appropriate resources Description: Patient's goal is: INTERVENTIONS 1. Conduct assessment to determine patient/family and health care team treatment goals, and need for post-acute services based on payer coverage, community resources, and patient preferences, and barriers to discharge 2. Coordinate with Social work, Care Navigation, and Utilization Review to arrange appropriate level of services according to patient's needs based on patient preference and payer coverage in collaboration with the physician and health care team 3. Address psychosocial, clinical, and financial barriers to discharge as identified in assessment in conjunction with the patient/family and health care team 4. Consult appropriate ancillary services (i.e.. PT/OT/ST, etc) as needed 5. Communicate with and update the patient/family, physician, and health care team regarding progress on the discharge plan 6. Identify discharge learning needs (meds, wound care, etc). 7. Arrange for needed discharge transportation as appropriate Outcome: Progressing Note: Evaluation of progress towards goal: Pt making progress towards discharge Images from the original note were not included. DISCHARGE PLANNING NOTE Services Requested: Services Requested Discharge Disposition: [facility] Name: [facility] Does the patient need discharge transportation arranged?: Yes Transportation Arranged: [facility] Visiting Physician/Provider: Carson Matamoros MD Initial DC Assessment Completed: Yes Patient Goals: Patient/Caregiver Goals Patient/Caregiver Goals: (alf) Goals: Goals home (pt-stated) Evaluation of progress towards goal: Patient sister stated back to alf. Patient admitted for: small bowel obstruction Patient discussed in discharge transition rounds: Per RN report barriers include; NPO, NG_LIWS, IVF, IV seizure medications. CN spoke with patient sister, Susan, over the phone , introduced self and explained role. Patient lives at [facility]. Patient sister stated they are mostly independent with direction with ADL's and patient was not able to drive prior to admission. Patient sister states that they currently use a wheelchair DME. Patient endorses no issue financially with being able to obtain medications or food. Patient states that they have working water, gas and electric. Patient's preferred pharmacy is [facility] in [place] PCP added to follow up provider list to receive summary of care at discharge. Based on readmission risk assessment, patient has risk score of 17.3 for readmission. The following arrangements have been made to help prevent readmission. D/C Plan: Patient sister Susan stated patient will return to alf when medically ready. Fence Supervisor will continue to follow for any discharge needs. - Paty Balderas RN 04/09/23 11:40 AM Problem: Knowledge Deficit Goal: Patient/patient sales representative adding machines demonstrates understanding of disease process, treatment plan, medications, and discharge instructions Description: INTERVENTIONS 1. Complete learning assessment and assess knowledge base 2. Provide teaching at level of understanding 3. Provide teaching via preferred learning method(s) Outcome: Progressing Note: Evaluation of progress towards goal: patient and sister updated on plan of care. Both parties state understanding. Problem: Pain Goal: Patient goal is pain score less than 4, able to rest, and participant in treatment plan as appropriate Description: INTERVENTIONS: 1. Encourage patient or legal sales representative adding machines to report early pain and ask for pain medicine when needed 2. Assess pain using appropriate pain scale and include the scale used when documenting 3. Administer analgesics based on type and severity of pain and evaluate response within appropriate time frame 4. Implement non-pharmacological measures as appropriate and evaluate response 5. Consider cultural and social influences on pain and pain management 6. Notify LIP if interventions ineffective or patient reports new pain 7. Monitor vital signs including pulse ox, end-tidal CO2 based on pain intervention 8. Reassess pain per policy 9. Teach patient or legal sales representative adding machines interventions for comforting Outcome: Progressing Note: Evaluation of progress towards goal: Pt denies pain. Pt level of comfort will be maintained. Problem: Safety Goal: Patient will be injury free during hospitalization Description: INTERVENTIONS: 1. Assess patient's risk for falls and implement fall prevention plan of care per policy 2. Provide and maintain a safe environment 3. Proper use of double Identifiers 4. Medication administration using the 5 rights 5. Hand hygiene 6. Specimens are labeled at the bedside 7. Instruct patient/ patient sales representative adding machines about use of safety devices 8. Include patient/ patient sales representative adding machines in decisions related to safety Outcome: Progressing Note: Evaluation of progress towards goal: Bed alarm on. Call light within reach. Hourly rounding. Bed in lowest position Problem: Infection Goal: Absence of infection during hospitalization Description: Interventions: 1. Assess and monitor for signs and symptoms of infection 2. Monitor lab/diagnostic results 3. Monitor all insertion sites i.e., indwelling lines, tubes and drains 4. Monitor endotracheal (as able) and nasal secretions for changes in amount and color 5. Administer medications as ordered 6. Instruct and encourage patient and family to use good hand hygiene technique 7. Identify and instruct patient/patient sales representative adding machines in use of appropriate isolation precautions for identified infection/symptoms 8. Provide and discuss with patient/patient sales representative adding machines on educational MDRO sheet 9. Encourage and monitor nutritional status daily and consult seasonal recruiter if indicated 10. Implement neutropenic guidelines as needed 11. Review exposure to history of communicable disease and recent travel history on admission 12. Encourage annual influenza vaccine 13. Encourage pneumonia vaccine Outcome: Progressing Note: Evaluation of progress towards goal: Continue to monitor labs and vs Problem: Knowledge Deficit Goal: Patient/patient sales representative adding machines demonstrates understanding of disease process, treatment plan, medications, and discharge instructions Description: INTERVENTIONS 1. Complete learning assessment and assess knowledge base 2. Provide teaching at level of understanding 3. Provide teaching via preferred learning method(s) Outcome: Progressing Note: Evaluation of progress towards goal: Pt concerns addressed Problem: Discharge Planning Goal: Discharge to post-acute care, other facility, or home with appropriate resources Description: Patient's goal is: INTERVENTIONS 1. Conduct assessment to determine patient/family and health care team treatment goals, and need for post-acute services based on payer coverage, community resources, and patient preferences, and barriers to discharge 2. Coordinate with Social work, Care Navigation, and Utilization Review to arrange appropriate level of services according to patient's needs based on patient preference and payer coverage in collaboration with the physician and health care team 3. Address psychosocial, clinical, and financial barriers to discharge as identified in assessment in conjunction with the patient/family and health care team 4. Consult appropriate ancillary services (i.e.. PT/OT/ST, etc) as needed 5. Communicate with and update the patient/family, physician, and health care team regarding progress on the discharge plan 6. Identify discharge learning needs (meds, wound care, etc). 7. Arrange for needed discharge transportation as appropriate Outcome: Progressing Note: Evaluation of progress towards goal: Pt making progress towards discharge Problem: Pain Goal: Patient goal is pain score less than 4, able to rest, and participant in treatment plan as appropriate Description: INTERVENTIONS: 1. Encourage patient or legal sales representative adding machines to report early pain and ask for pain medicine when needed 2. Assess pain using appropriate pain scale and include the scale used when documenting 3. Administer analgesics based on type and severity of pain and evaluate response within appropriate time frame 4. Implement non-pharmacological measures as appropriate and evaluate response 5. Consider cultural and social influences on pain and pain management 6. Notify LIP if interventions ineffective or patient reports new pain 7. Monitor vital signs including pulse ox, end-tidal CO2 based on pain intervention 8. Reassess pain per policy 9. Teach patient or legal sales representative adding machines interventions for comforting Outcome: Progressing Note: Evaluation of progress towards goal: patient has no acute complaints of pain documented in this encounter [facility] 04-19-2023 Hospital course Narrative Images from the original note were not included. [facility] Medicine Discharge Summary Patient Name: Amol Taylor : 1955 PCP: CARSON MATAMOROS MD DATE OF ADMISSION: 04/08/2023 DATE OF DISCHARGE: 04/19/2023 PRIMARY DISCHARGE DIAGNOSIS: Small-bowel obstruction SECONDARY DISCHARGE DIAGNOSIS: Oropharyngeal dysphagia Asymptomatic bradycardia Acute urinary retention, resolved Hypomagnesemia Hypophosphatemia, improved Combined chronic normocytic anemia iron-deficiency anemia anemia of chronic disease Vitamin B12 deficiency MR DD Seizure disorder Presence of vagal nerve stimulator BPH CONSULTANTS: General surgery Cardiology Neurology [facility]/HOSPITAL COURSE SUMMARY: Amol Taylor is a 68 y.o. male with a past medical history of seizure disorder, vagal nerve stimulator, small-bowel obstructions, MR DD, BPH who was brought to the ED with complaints of vomiting. The patient was subsequently transferred to [facility]. A CT scan showed concern for a small bowel obstruction. General surgery was consulted in yet an NG tube placed. Neurology was consulted regarding antiepileptic drug therapy given his NPO status. The patient was started on IV Keppra and IV Vimpat as per Neurology recommendation. His home primidone and lamotrigine were held due to no IV formulation. He had a small bowel follow-through that showed no evidence of obstruction. He would NG tube removed on 04/10/2023. Patient had asymptomatic bradycardia. Cardiology was consulted. The patient had a transthoracic echo on 04/11/2023 showing normal systolic function ejection fraction 55-60%. The patient had a Cortrak place for tube feeding. The patient had several swallow study evaluations. And followed with speech therapy throughout. There was recommendation for no liquids and discussion with the patient's POA regarding the possibility of PEG tube placement oral alternative feeding methods for adequate nutrition. This history would only want a PEG tube as a very last resort as he would not be able to return to his alf with a feeding tube. She reported he was previously doing very well with diet. That he is followed closely at alf and only takes very small amount of liquids at a time. With evaluation with speech therapy recommendations of: Diet: Level 4/Level 3 liquids via cup - Staff must assist patient with following guidelines: SMALL, single sips via cup Sit fully upright for all oral intake NO Straws of continuous sips. Discharge: At discharge, if patient continues to tolerate Level 3 liquids, suggest getting patient a Provale cup that will control his sip size when drinking. POA was agreeable this plan. The patient's NG tube was removed and started on above diet. He was tolerating well. It was recommended that he continue to follow up closely with speech pathology while at the group. The patient will also need arrangements for physical therapy and occupational therapy. Patient had a PICC line that was removed prior to discharge. Patient was seen and examined on the day of discharge. DISCHARGE INSTRUCTIONS: Disposition: discharge to return to alf to arrange physical therapy, occupational therapy, and speech language pathology therapy Condition: good Activity: as tolerated Diet: Adult diet Level 4 Pureed diet; Level 3 Moderately Thick; supervised liquids only. one sip at a time Adult diet Code Status: Full code FOLLOW-UP: Follow up with primary care provider within 1-2 weeks of discharge Follow up with the patient's neurologist To follow up with patient with therapy, Occupational therapy, and speech language pathology to be arranged at the alf Physical Exam: BP 96/57 Pulse 77 Temp 36.7 C (98.1 F) (Axillary) Resp 19 Ht 167.6 cm (5' 6 ) Wt 76.6 kg (168 lb 14 oz) SpO2 98% BMI 27.26 kg/m General appearance: alert, in no acute distress Skin: warm and dry to touch HEENT: atraumatic, no exudate Neck: neck supple, no lymphadenopathy Lungs: clear to ausculation bilaterally, no use of accessory muscles Heart: RRR, normal S1 and S2, no murmurs Abdomen: soft, non-distended, non-tender, bowel sounds normoactive Extremities: no edema Neurologic: No acute focal deficits Psychiatric: Pleasant Intake/output: Net IO Since Admission: 13,526.37 mL [04/19/23 1217] Labs: Results from last 7 days Lab Units 04/19/23 0500 04/18/23 0630 04/17/23 0500 WBC X10E9/L 8.0 9.0 9.0 HEMOGLOBIN g/dL 10.4* 10.9* 11.0* HEMATOCRIT % 31.0* 32.4* 32.5* PLATELETS X10E9/L 232 251 232 Results from last 7 days Lab Units 04/13/23 1145 INR 1.2* Results from last 7 days Lab Units 04/19/23 1107 04/19/23 0500 04/18/23 1322 04/18/23 0630 04/17/23 1845 SODIUM mmol/L 140 137 -- 143 -- POTASSIUM mmol/L 4.6 5.0 -- 4.6 -- CHLORIDE mmol/L 111* 111* -- 108 -- CO2 mmol/L 22 20* -- 26 -- BUN mg/dL 17 18 -- 19 -- CREATININE mg/dL 0.71 0.70 -- 0.65 -- CALCIUM mg/dL 8.6 8.6 -- 8.5 -- PHOSPHORUS mg/dL -- 3.0 2.2* -- 2.0* MAGNESIUM mg/dL -- 1.7* 2.2 1.7* 2.0 Invalid input(s): BILITOT , LABBILIRUBIN , TOTALBILIRUB , BILIRUB , BILIRUBIND Results from last 7 days Lab Units 04/19/23 1107 04/19/23 0500 04/18/23 0630 GLUCOSE mg/dL 99 90 93 No results found for: HGBA1C Lab Results Component Value Date SPECIFICGRA 1.015 02/15/2023 LEUKOCYTE Negative 02/15/2023 NITRITEN Negative 02/15/2023 PHNUR 6.5 02/15/2023 PROTEINNUR Negative 02/15/2023 KETONESNUR Negative 02/15/2023 UROBILINOGEN 1.0 02/15/2023 BLOODHGBNU Trace (A) 02/15/2023 Imaging No results found. Last Echo Echo complete W/O contrast Result Date: 04/12/2023 Left Ventricle: There is mild increased wall thickness/hypertrophy. Systolic function is normal with an ejection fraction of 55-60%. Right Ventricle: Right ventricular size is borderline dilated. Systolic function is normal. Normal tricuspid annular plane systolic excursion. Aortic Valve: There is trace to mild regurgitation. There is no evidence of aortic valve stenosis. Mitral Valve: There is trace regurgitation. There is no evidence of mitral valve stenosis. Cultures Microbiology Results No results found for the last 168 hours. DISCHARGE MEDICATIONS: Your medication list START taking these medications Instructions Last Dose Given Next Dose Due magnesium oxide 400 mg tablet Commonly known as: MAGOX Take 1 tablet (400 mg total) by mouth in the morning. CONTINUE taking these medications Instructions Last Dose Given Next Dose Due acetaminophen 500 mg tablet Commonly known as: TYLENOL EXTRA STRENGTH Take 1 tablet (500 mg total) by mouth every 6 (six) hours as needed for pain. albuterol 90 mcg/actuation inhaler Commonly known as: PROVENTIL HFA;VENTOLIN HFA Inhale 2 puffs every 4 (four) hours as needed for wheezing. calcium carbonate 600 mg elemental (1,500 mg) tablet Commonly known as: OS-TAYE Take 1 tablet (600 mg total) by mouth 2 (two) times a day with meals. chewable carbamide peroxide 6.5 % otic solution Commonly known as: DEBROX Apply 4 ggt to both ear nightly once a month . Cotton ball then in am rinse with body temperature water using syringe in kit cholecalciferol 1,000 units tablet Commonly known as: cholecalciferol Take 1 tablet (1,000 Units total) by mouth daily. diazePAM 5-7.5-10 mg rectal kit Commonly known as: DIASTAT ACUDIAL finasteride 5 mg tablet Commonly known as: PROSCAR Take 1 tablet (5 mg total) by mouth daily. hydrocortisone 2.5 % cream Commonly known as: HYTONE hydrOXYzine 25 mg tablet Commonly known as: ATARAX Take 1 tablet (25 mg total) by mouth as needed for itching. inulin-chromium picolinate 2-100 gram-mcg tablet,chewable Chew 2 tablets and swallow daily. lamoTRIgine 200 mg tablet Commonly known as: LaMICtal lamoTRIgine 200 mg tablet Commonly known as: LaMICtal latanoprost 0.005 % ophthalmic solution Commonly known as: XALATAN levETIRAcetam 750 mg tablet Commonly known as: KEPPRA levETIRAcetam 1000 mg tablet Commonly known as: KEPPRA loperamide 2 mg tablet Commonly known as: IMODIUM A-D Take 1 tablet (2 mg total) by mouth 2 (two) times a day as needed for diarrhea. LORazepam 0.5 mg tablet Commonly known as: ATIVAN Take 1 tablet (0.5 mg total) by mouth daily as needed for anxiety or seizures. meclizine 25 mg tablet Commonly known as: ANTIVERT Take 1 tablet (25 mg total) by mouth daily. melatonin tablet Commonly known as: CIRCADIN ondansetron ODT 4 mg disintegrating tablet Commonly known as: ZOFRAN ODT Dissolve 1 tablet (4 mg total) on tongue every 12 (twelve) hours as needed for nausea or vomiting. oxybutynin XL 10 mg 24 hr tablet Commonly known as: DITROPAN-XL pantoprazole 40 mg EC tablet Commonly known as: PROTONIX polyethylene glycol 17 gram packet Commonly known as: GLYCOLAX primidone 250 mg tablet Commonly known as: MYSOLINE primidone 250 mg tablet Commonly known as: MYSOLINE senna 8.6 mg tablet Commonly known as: SENOKOT tamsulosin 0.4 mg capsule Commonly known as: FLOMAX Take 1 capsule (0.4 mg total) by mouth 2 (two) times a day. VIMPAT 150 mg tablet Generic drug: lacosamide Take 1 tablet (150 mg total) by mouth 2 (two) times a day. white petrolatum-mineral oiL 94-3 % ointment Commonly known as: SYSTANE NIGHTTIME Instill 1 application to eye nightly. To eye lid Area bilat not conjuctivia (for pt chronic itching of ey) Where to Get Your Medications These medications were sent to [facility], [facility] - [place], [place] - [address], [facility] [address] magnesium oxide 400 mg tablet Thirty-eight minutes were spent on discharging this patient. Edilma Eastman MD documented in this encounter [facility] 04-19-2023 History of Present illness Narrative NUTRITION ADULT FOLLOW UP NUTRITION ASSESSMENT: Patient History: Brief Clinical Summary: 68 yo with PMH: intellectual disability, seizure disorder, vagus nerve stimulator, small-bowel obstruction, and BPH. Pt with complicated abdominal surgical history with multiple small bowel resections and SBO's. Pt was brought to ER with complaints of vomiting and was transferred to [facility] ER. CT scan showed small bowel obstruction. Biochemical Data, Medical Tests, and Procedures: 04/07 CTAP - distended stomach and multiple small bowel loops suspicious for obstruction 04/12 VFSS - dysphagia with strict NPO status 04/16 VFSS - L4 no liquids Labs: Results from last 3 days Lab Units 04/19/23 0500 04/18/23 0630 04/17/23 0500 SODIUM mmol/L 137 143 143 POTASSIUM mmol/L 5.0 4.6 4.6 CHLORIDE mmol/L 111* 108 111* CO2 mmol/L 20* 26 24 BUN mg/dL 18 19 17 CREATININE mg/dL 0.70 0.65 0.64 CALCIUM mg/dL 8.6 8.5 8.3* Results from last 7 days Lab Units 04/19/23 0500 04/18/23 0630 04/17/23 0500 04/16/23 0530 04/15/23 0605 04/14/23 0610 04/13/23 0608 GLUCOSE mg/dL 90 93 99 106* 124* 123* 95 Results from last 3 days Lab Units 04/19/23 0500 04/18/23 0630 04/17/23 0500 WBC X10E9/L 8.0 9.0 9.0 HEMOGLOBIN g/dL 10.4* 10.9* 11.0* HEMATOCRIT % 31.0* 32.4* 32.5* PLATELETS X10E9/L 232 251 232 MCV fL 100 98 99 Results from last 3 days Lab Units 04/19/23 0500 04/18/23 1322 04/18/23 0630 04/17/23 0500 04/16/23 1435 MAGNESIUM mg/dL 1.7* 2.2 1.7* < > -- IONIZED MAGNESIUM mmol/L -- -- -- -- 0.71 < > = values in this interval not displayed. Results from last 3 days Lab Units 04/19/23 0500 04/18/23 1322 04/17/23 1845 04/17/23 0500 04/16/23 1435 PHOSPHORUS mg/dL 3.0 2.2* 2.0* < > <1.0* CALCIUM, IONIZED mg/dL -- -- -- -- 4.9 < > = values in this interval not displayed. No data from last 3 days. No results found for: HGBA1C Lab Results Component Value Date IRON 35 (L) 04/09/2023 TIBC 190 (L) 04/09/2023 FERRITIN 72 04/09/2023 Lab Results Component Value Date IRONSAT 18 (L) 04/09/2023 No results found for: CHOL No results found for: CHDL No results found for: HDL No results found for: LDLCALC No results found for: TRIG No results found for: VERYLOWLIP Lab Results Component Value Date [id number] 157 (L) 04/09/2023 Lab Results Component Value Date FOLATE >25.0 04/09/2023 No results found for: VITD25 Comments (labs): Hypomagnesemia (1.7), Phos now WNL Medications/ Parenteral: Keppra, Magox, Mg Sulfate given 04/19, Sodium Phos given 04/18 Current Facility-Administered Medications Medication Dose Route Frequency Provider Last Rate Last Admin albuterol (PROVENTIL,VENTOLIN) nebulizer solution 2.5 mg 2.5 mg nebulization Q6H PRN Houston Perkins MD 2.5 mg at 04/10/23 1214 barium sulfate (E-Z-DISK) tablet 700 mg 700 mg oral Once in imaging Gonzales La MD barium sulfate (E-Z-HD) 98 % suspension 340 g 340 g oral Once in imaging Gonzales La MD barium sulfate (E-Z-PAQUE) 96 % (w/w) powder 176 g 176 g oral Once in imaging Gonzales La MD barium sulfate (E-Z-PASTE) 60 % oral cream 454 g 454 g [facility] (LIQUID E-Z PAQUE) 60 % (w/v) suspension 355 mL 355 mL oral Once in imaging Gonzales La MD barium sulfate (LIQUID POLIBAR PLUS) 105 % (w/v), 58 % (w/w) suspension 300 mL 300 mL oral [facility] barium sulfate (VARIBAR HONEY) 40 % (w/v) 29% (w/w) suspension 250 mL 250 mL oral [facility] dextrose (GLUTOSE) 40 % gel 15 g 15 g oral PRN Nazia Broussard MD dextrose 5 % (D5W) infusion 100 mL/hr intravenous Continuous PRN Nazia Broussard MD dextrose 50 % in water (D50W) 50% solution 25 mL 25 mL intravenous PRN Nazia Broussard MD glucagon HCL injection 1 mg 1 mg intramuscular PRN Nazia Broussard MD heparin (porcine) injection 5,000 Units 5,000 Units subcutaneous Q8H [facility] Nazia Broussard MD 5,000 Units at 04/19/23 0629 lacosamide (VIMPAT) tablet 150 mg 150 mg oral Q12H Edilma Eastman MD 150 mg at 04/19/23 0143 lamoTRIgine (LaMICtal) tablet 400 mg 400 mg oral Daily Edilma Eastman MD 400 mg at 04/19/23 0905 lamoTRIgine (LaMICtal) tablet 600 mg 600 mg oral Nightly Edilma Eastman MD 600 mg at 04/18/23 2317 latanoprost (XALATAN) 0.005 % ophthalmic solution 1 drop 1 drop both eyes Nightly Houston Perkins MD 1 drop at 04/18/23 2318 levETIRAcetam (KEPPRA) tablet 1,500 mg 1,500 mg oral Daily Edilma Eastman MD 1,500 mg at 04/19/23 0904 levETIRAcetam (KEPPRA) tablet 2,000 mg 2,000 mg oral Nightly Edilma Eastman MD 2,000 mg at 04/18/23 2317 magnesium oxide (MAGOX) tablet 400 mg 400 mg oral Daily Edilma Eastman MD magnesium sulfate IVPB 2000 mg/50 mL in iso-osmotic water (40 mg/mL premix) 2,000 mg intravenous PRN Nazia Broussard MD 25 mL/hr at 04/19/23 0649 2,000 mg at 04/19/23 0649 magnesium sulfate IVPB 4000 mg/100 mL in iso-osmotic water (40 mg/mL premix) 4,000 mg intravenous PRN Nazia Broussard MD Stopped at 04/13/23 1603 potassium chloride IVPB 10 mEq/100 mL in water (0.1 mEq/mL premix) 10 mEq intravenous PRJhonatan Broussard MD Stopped at 04/14/23 1855 primidone (MYSOLINE) tablet 250 mg 250 mg oral Daily Edilma Eastman MD 250 mg at 04/19/23 0905 primidone (MYSOLINE) tablet 375 mg 375 mg oral Nightly Edilma Eastman MD 375 mg at 04/18/23 231 sodium phosphate 20 mmol in sodium chloride 0.9 % 250 mL IVPB 20 mmol intravenous PRN Houston Perkins MD Or sodium phosphate 20 mmol in sodium chloride 0.9 % 100 mL IVPB 20 mmol intravenous PRJhonatan Perkins MD Stopped at 04/18/232030 Or sod phos di, mono-K phos mono (K-PHOS NEUTRAL) 250 mg tablet 2 tablet 2 tablet oral PRN Houston Perkins MD sodium chloride 0.9 % flush 20 mL 20 mL intravenous Q12H Nazia Broussard MD 20 mL at 04/19/23 0904 And sodium chloride 0.9 % flush 20 mL 20 mL intravenous PRN Nazia Broussard MD And sodium chloride 0.9 % flush 40 mL 40 mL intravenous PRN Nazia Broussard MD sodium chloride 0.9 % flush 3 mL 3 mL intravenous PRN Nazia Broussard MD sodium chloride 0.9 % flush 3 mL 3 mL intravenous Q12H DAR Nazia Broussard MD 3 mL at 04/18/23 2325 sodium chloride 0.9 % flush bag 25 mL intravenous PRN Nazia Broussard MD Stopped at 04/16/23 0646 sodium chloride 0.9 % infusion 20 mL/hr intravenous Continuous PRN Nazia Broussard MD Stopped at 04/16/23 0047 terazosin (HYTRIN) capsule 1 mg 1 mg nasogastric Daily Gonzales La MD 1 mg at 04/19/23 0905 Nutrition Focused Physical Findings Last BM 04/19, noted to be loose and watery +PICC, cortrak removed 04/18 Skin (per nursing flow sheets): Skin Color: [place]; Pale (04/19/23899) Skin Temp: Warm; Dry (04/19/23899) Skin Integrity: Intact (04/08/23626) Skin Turgor: Non-tenting (04/08/23626) Wound (per nursing flow sheets): Gastrointestinal (per nursing flow sheets): Abdomen Assessment: Soft; Nondistended (04/19/23899) Last BM Date: 04/18/23 (04/19/23899) Passing Flatus: Yes (04/19/23899) RUQ Bowel Sounds: Active (04/19/23899) LUQ Bowel Sounds: Active (04/19/23899) RLQ Bowel Sounds: Active (04/19/23899) LLQ Bowel Sounds: Active (04/19/23899) GI Symptoms: None (04/18/23 1900) Edema (per nursing flow sheets): RLE Edema: +1 (04/19/23899) LLE Edema: +1 (04/19/23899) Intake/ Output Last 24 hrs: Intake/Output Summary (Last 24 hours) at 04/19/2023 1131 Last data filed at 04/18/2023 1200 Gross per 24 hour Intake 540 ml Output -- Net 540 ml Food/Nutrition Related History: Diet/ Nutrition Order Review: Dietary Orders (From admission, onward) Start Ordered 04/18/23 1220 Adult diet Level 4 Pureed diet; Level 3 Moderately Thick; supervised liquids only. one sip at a time Diet effective now Question Answer Comment Diet Type: Level 4 Pureed diet Liquid Modifiers: Level 3 Moderately Thick Nursing Instructions: supervised liquids only. one sip at a time 04/18/23 1221 TPN: (Show up to 1 orders; newest on the left.) None Diet Intakes: Patient has had improved intake, ate 100% of breakfast and 100% of lunch 04/19. Oral Supplemental Intake/ Acceptance: None ordered ATT Inpatient Nutrition Support History: TF initiated 04/13 04/18 TF stopped Pt's sister decided that she would not want PEG at this time, she believes he will be able to eat as he normally does at the alf. Would like to use PEG as last resort. TF: Osmolite 1.2 at 65 ml/hr to provide 1875 Kcal daily 87 gm protein daily 1279 mL Free H2O daily 100% RDI Anthropometrics: Ht Readings from Last 1 Encounters: 04/09/23 167.6 cm (5' 6 ) Last 3 Weight Readings 04/16/23 0358 04/18/23 0500 04/19/23 0449 Weight: 74.5 kg (164 lb 3.9 oz) 74 kg (163 lb 2.3 oz) 76.6 kg (168 lb 14 oz) Current Weight: 76.6 kg (bed scale, 04/19) Admit Weight: 74.4 kg (Bed Scale, 04/09) [place] Body Weight: 64.5 kg Weight Changes: 2.8 kg (3.4%) wt loss in < 2 months, not clinically significant Current Body Mass Index: Body mass index is 27.26 kg/m . Comparative Standards: Estimated Energy Needs: 6003-5669 kcals daily. Method and weight used: 25-30 kcal/kg IBW Estimated Protein Needs: 78-130 grams daily. Method and weight used: 1.2-2g protein/kg IBW Estimated Fluid Needs: 2836-0936 ml daily. Method weight used: 1 ml/kcal Comments: Floor needs based on ideal body weight Malnutrition Status: Malnutrition Present: No NUTRITION DIAGNOSIS: Intake Diagnosis: Inadequate oral intake (NI 2.1) Ongoing NUTRITION INTERVENTIONS: Meals and snacks: Continue to encourage adequate oral intake Supplements: Due to pt discharging, will not order supplements, however pt would benefit from daily high protein nutrition supplement RECOMMENDATIONS: If patient is unable to consistently meet > 75% of his needs via PO intake, recommend alternative route of nutrition GOAL(S): patient to meet > 75% of his estimated needs PO NUTRITION MONITORING AND EVALUATION: PO intake, weights, labs, POC Dinora Reddy RD, LD Clinical Dietitian [facility] [phone] [facility] Hospitalists Progress Note 04/18/2023 Hospital Day: 11 Patient Name: Amol Taylor : 1955 ASSESSMENT Small-bowel obstruction, resolved. NG removed 04/10/2023. Small-bowel follow-through showing no obstruction Dysphagia diet status post Cortrak placement 04/13/2023 Asymptomatic bradycardia EKG sinus bradycardia Echo normal ejection fraction grade 1 diastolic dysfunction Vagal nerve stimulator manually activated so not contribute to bradycardia per Neurology. Acute urinary retention Hypomagnesemia Hypophosphatemia Combined chronic normocytic anemia iron-deficiency anemia anemia of chronic disease vitamin B12 deficiency MR DD Seizure disorder status post vagal nerve stimulator BPH PLAN Continuous cardiac monitoring, cardiology signed off Antiepileptic drug therapy with Keppra and Vimpat. Primidone and lamotrigine were on hold due to no IV formula. Recommended per Neurology to resume as soon as possible. I will resume primidone and lamotrigine. I confirmed with neurology and to be resumed at his home dose. Will switch IV keppra and IV vimpat to oral equivalent per home regimen Tube feeding as per nutrition via Cortrak Discussed with the POA sister via phone she is adamant patient will be able to resume his previous thickened liquid diet and continue to work with therapy at his alf. She would only want PEG as a last resort as he would not be able to return to his alf with a feeding tube and previously doing well with his diet. Will reach out to speech pathology. Possibly consider swallow study without cortrak in place. Serum metabolic panel daily. Phosphorus and magnesium replacement Continue terazosin DVT prophylaxis: Subcutaneous heparin Discharge planning: SNF versus alf. Pending ongoing discussion regarding possible PEG tube Subjective SUBJECTIVE Patient was seen and examined at bedside. Resting comfortably. NG tube in place. He has no acute complaints. He denies having pain or difficulty swallowing his medications. He denies abdominal pain. Objective OBJECTIVE Physical Exam: General appearance: In no apparent distress HEENT: atraumatic, no erythema Neck: supple, nontender Lungs: clear to auscultation bilaterally, no use of accessory muscles Heart: RRR, normal S1 and S2, no murmurs Abdomen: soft, non-distended, non-tender, normoactive bowel sounds Extremities: no edema, no rash Neurologic: Limited exam to cooperation cranial nerves grossly intact Vital Signs: Temp: [36.4 C (97.6 F)-36.8 C (98.2 F)] 36.6 C (97.9 F) Pulse: [71-91] 84 Resp: [18-20] 20 BP: (105-123)/(54-78) 111/72 SpO2: [93 %-98 %] 98 % O2 Device: None (Room air) Weight: Body mass index is 26.33 kg/m . Admission weight: 74.4 kg (164 lb 0.4 oz) Wt Readings from Last 3 Encounters: 04/18/23 74 kg (163 lb 2.3 oz) 04/07/23 78.7 kg (173 lb 8 oz) 02/15/23 81.7 kg (180 lb 3.2 oz) Input/Output: Intake/Output Summary (Last 24 hours) at 04/18/2023 0917 Last data filed at 04/18/2023 0740 Gross per 24 hour Intake 1595.67 ml Output -- Net 1595.67 ml Labs/Imaging: Recent Results (from the past 24 hour(s)) Phosphorus Collection Time: 04/17/23 6:45 PM Result Value Ref Range Phosphorus 2.0 (L) 2.4 - 4.9 mg/dL Magnesium Collection Time: 04/17/23 6:45 PM Result Value Ref Range Magnesium 2.0 1.8 - 2.6 mg/dL Basic Metabolic Panel Collection Time: 04/18/23 6:30 AM Result Value Ref Range Sodium 143 134 - 146 mmol/L Potassium, Bld 4.6 3.5 - 5.0 mmol/L Chloride 108 98 - 109 mmol/L CO2 26 22 - 32 mmol/L Anion gap 9 5 - 15 mmol/L BUN 19 5 - 27 mg/dL Creatinine 0.65 0.60 - 1.30 mg/dL Glucose 93 65 - 99 mg/dL Calcium 8.5 8.5 - 10.5 mg/dL eGFR (CKD-EPI)non-race dependent >90 >59 ml/min/1.73sq.m CBC auto differential Collection Time: 04/18/23 6:30 AM Result Value Ref Range White Blood Cells 9.0 4.0 - 11.0 X10E9/L RBC count 3.31 (L) 4.10 - 5.70 X10E12/L Hemoglobin 10.9 (L) 13.0 - 17.0 g/dL Hematocrit 32.4 (L) 39 - 49 % MCV 98 80 - 100 fL MCH 33.1 27 - 34 pg MCHC 33.7 32 - 36 g/dL RDW 13.5 11.5 - 15.0 % Platelets 251 150 - 450 X10E9/L MPV 7.3 7 - 12 fL % neutrophils 67.0 % % lymphocytes 17.6 % % monocytes 11.6 % % eosinophils 3.3 % % Basophils 0.5 % Neutrophils Absolute (A) 6.1 1.5 - 6.6 X10E9/L Lymphocytes Absolute 1.6 1.0 - 3.5 X10E9/L Monocytes Absolute 1.1 (H) 0 - 0.9 X10E9/L Eosinophils Absolute 0.3 0.0 - 0.4 X10E9/L Basophils Absolute 0.0 0.0 - 0.2 X10E9/L Magnesium Collection Time: 04/18/23 6:30 AM Result Value Ref Range Magnesium 1.7 (L) 1.8 - 2.6 mg/dL All available laboratory, imaging, and microbiology data has been personally reviewed in detail, and accessible in full per EMR. Medications: heparin (porcine), 5,000 Units, subcutaneous, Q8H DAR lacosamide, 150 mg, intravenous, Q12H lamoTRIgine, 400 mg, oral, Daily lamoTRIgine, 600 mg, oral, Nightly latanoprost, 1 drop, both eyes, Nightly levETIRAcetam, 2,000 mg, intravenous, HS levETIRAcetam, 1,500 mg, intravenous, QAM AC primidone, 250 mg, oral, Daily primidone, 375 mg, oral, Nightly [COMPLETED] Consult PICC nurse - Midline, , , Once AND sodium chloride, 20 mL, intravenous, Q12H AND sodium chloride, 20 mL, intravenous, PRN AND sodium chloride, 40 mL, intravenous, PRN sodium chloride, 3 mL, intravenous, Q12H DAR terazosin, 1 mg, nasogastric, Daily Edilma Eastman MD [facility] Hospitalists Progress Note 04/17/2023 Hospital Day: 10 Patient Name: Amol Taylor : 1955 ASSESSMENT Small-bowel obstruction, resolved. NG removed 04/10/2023. Small-bowel follow-through showing no obstruction Dysphagia diet status post Cortrak placement 04/13/2023 Asymptomatic bradycardia EKG sinus bradycardia Echo normal ejection fraction grade 1 diastolic dysfunction Vagal nerve stimulator manually activated so not contribute to bradycardia per Neurology. Acute urinary retention Hypomagnesemia Hypophosphatemia Combined chronic normocytic anemia iron-deficiency anemia anemia of chronic disease vitamin B12 deficiency MR DD Seizure disorder status post vagal nerve stimulator BPH PLAN Continuous cardiac monitoring, cardiology signed off Antiepileptic drug therapy with Keppra and Vimpat. Primidone and lamotrigine were on hold due to no IV formula. Recommended per Neurology to resume as soon as possible. I will resume primidone and lamotrigine. I confirmed with neurology and to be resumed at his home dose. Tube feeding as per nutrition via Cortrak Serum metabolic panel daily. Phosphorus and magnesium replacement Continue terazosin DVT prophylaxis: Subcutaneous heparin Discharge planning: SNF versus alf. Pending ongoing discussion regarding possible PEG tube Subjective SUBJECTIVE Patient was seen and examined at bedside. Resting comfortably. NG tube in place. Objective OBJECTIVE Physical Exam: General appearance: In no apparent distress HEENT: atraumatic, no erythema Neck: supple, nontender Lungs: clear to auscultation bilaterally, no use of accessory muscles Heart: RRR, normal S1 and S2, no murmurs Abdomen: soft, non-distended, non-tender, normoactive bowel sounds Extremities: no edema, no rash Neurologic: Limited exam to cooperation cranial nerves grossly intact Vital Signs: Temp: [36.6 C (97.9 F)-37.1 C (98.8 F)] 36.9 C (98.5 F) Pulse: [70-86] 75 Resp: [15-20] 20 BP: (107-125)/(69-74) 107/70 SpO2: [90 %-100 %] 94 % O2 Device: None (Room air) O2 Flow Rate (L/min): [0 L/min] 0 L/min Weight: Body mass index is 26.51 kg/m . Admission weight: 74.4 kg (164 lb 0.4 oz) Wt Readings from Last 3 Encounters: 04/16/23 74.5 kg (164 lb 3.9 oz) 04/07/23 78.7 kg (173 lb 8 oz) 02/15/23 81.7 kg (180 lb 3.2 oz) Input/Output: Intake/Output Summary (Last 24 hours) at 04/17/2023 0905 Last data filed at 04/17/2023 0839 Gross per 24 hour Intake 2777 ml Output -- Net 2777 ml Labs/Imaging: Recent Results (from the past 24 hour(s)) Ionized magnesium Collection Time: 04/16/23 2:35 PM Result Value Ref Range Magnesium, ionized 0.71 0.45 - 0.74 mmol/L Phosphorus Collection Time: 04/16/23 2:35 PM Result Value Ref Range Phosphorus <1.0 (LL) 2.4 - 4.9 mg/dL Ionized calcium Collection Time: 04/16/23 2:35 PM Result Value Ref Range Calcium, ionized 4.9 4.5 - 5.3 mg/dL Basic Metabolic Panel Collection Time: 04/17/23 5:00 AM Result Value Ref Range Sodium 143 134 - 146 mmol/L Potassium, Bld 4.6 3.5 - 5.0 mmol/L Chloride 111 (H) 98 - 109 mmol/L CO2 24 22 - 32 mmol/L Anion gap 8 5 - 15 mmol/L BUN 17 5 - 27 mg/dL Creatinine 0.64 0.60 - 1.30 mg/dL Glucose 99 65 - 99 mg/dL Calcium 8.3 (L) 8.5 - 10.5 mg/dL eGFR (CKD-EPI)non-race dependent >90 >59 ml/min/1.73sq.m CBC auto differential Collection Time: 04/17/23 5:00 AM Result Value Ref Range White Blood Cells 9.0 4.0 - 11.0 X10E9/L RBC count 3.29 (L) 4.10 - 5.70 X10E12/L Hemoglobin 11.0 (L) 13.0 - 17.0 g/dL Hematocrit 32.5 (L) 39 - 49 % MCV 99 80 - 100 fL MCH 33.5 27 - 34 pg MCHC 34.0 32 - 36 g/dL RDW 13.2 11.5 - 15.0 % Platelets 232 150 - 450 X10E9/L MPV 7.7 7 - 12 fL % neutrophils 73.4 % % lymphocytes 13.7 % % monocytes 9.1 % % eosinophils 3.3 % % Basophils 0.5 % Neutrophils Absolute (A) 6.6 1.5 - 6.6 X10E9/L Lymphocytes Absolute 1.2 1.0 - 3.5 X10E9/L Monocytes Absolute 0.8 0 - 0.9 X10E9/L Eosinophils Absolute 0.3 0.0 - 0.4 X10E9/L Basophils Absolute 0.0 0.0 - 0.2 X10E9/L Magnesium Collection Time: 04/17/23 5:00 AM Result Value Ref Range Magnesium 1.8 1.8 - 2.6 mg/dL Phosphorus Collection Time: 04/17/23 5:00 AM Result Value Ref Range Phosphorus 1.6 (L) 2.4 - 4.9 mg/dL All available laboratory, imaging, and microbiology data has been personally reviewed in detail, and accessible in full per EMR. Medications: heparin (porcine), 5,000 Units, subcutaneous, Q8H DAR lacosamide, 150 mg, intravenous, Q12H latanoprost, 1 drop, both eyes, Nightly levETIRAcetam, 2,000 mg, intravenous, HS levETIRAcetam, 1,500 mg, intravenous, QAM AC [COMPLETED] Consult PICC nurse - Midline, , , Once AND sodium chloride, 20 mL, intravenous, Q12H AND sodium chloride, 20 mL, intravenous, PRN AND sodium chloride, 40 mL, intravenous, PRN sodium chloride, 3 mL, intravenous, Q12H DAR terazosin, 1 mg, nasogastric, Daily Edilma Eastman MD NUTRITION ADULT FOLLOW UP NUTRITION ASSESSMENT: Patient History: Brief Clinical Summary: 68 yo with PMH: intellectual disability, seizure disorder, vagus nerve stimulator, small-bowel obstruction, and BPH. Pt with complicated abdominal surgical history with multiple small bowel resections and SBO's. Pt was brought to ER with complaints of vomiting and was transferred to [facility] ER. CT scan showed small bowel obstruction. Biochemical Data, Medical Tests, and Procedures: 04/07 CTAP - distended stomach and multiple small bowel loops suspicious for obstruction 04/12 VFSS - dysphagia with strict NPO status 04/16 VFSS - L4 no liquids Labs: Results from last 3 days Lab Units 04/16/23 0530 04/15/23 0605 04/14/23 0610 SODIUM mmol/L 146 144 140 POTASSIUM mmol/L 4.5 4.1 3.6 CHLORIDE mmol/L 111* 111* 108 CO2 mmol/L 28 27 25 BUN mg/dL 17 11 8 CREATININE mg/dL 0.60 0.67 0.69 CALCIUM mg/dL 7.8* 7.7* 8.1* Results from last 7 days Lab Units 04/16/23 0530 04/15/23 0605 04/14/23 0610 04/13/23 0608 04/12/23 0634 04/11/23 0445 04/10/23 0405 GLUCOSE mg/dL 106* 124* 123* 95 81 80 77 Results from last 3 days Lab Units 04/16/23 0530 04/15/23 0605 04/14/23 0610 WBC X10E9/L 7.5 10.4 9.2 HEMOGLOBIN g/dL 10.9* 10.7* 11.2* HEMATOCRIT % 31.9* 30.8* 32.4* PLATELETS X10E9/L 173 140* 152 MCV fL 97 99 97 Results from last 3 days Lab Units 04/16/23 0530 04/15/23 1524 04/15/23 0605 MAGNESIUM mg/dL 1.8 2.1 1.7* No data from last 3 days. No data from last 3 days. No results found for: HGBA1C Lab Results Component Value Date IRON 35 (L) 04/09/2023 TIBC 190 (L) 04/09/2023 FERRITIN 72 04/09/2023 Lab Results Component Value Date IRONSAT 18 (L) 04/09/2023 No results found for: CHOL No results found for: CHDL No results found for: HDL No results found for: LDLCALC No results found for: TRIG No results found for: VERYLOWLIP Lab Results Component Value Date [id number] 157 (L) 04/09/2023 Lab Results Component Value Date FOLATE >25.0 04/09/2023 No results found for: VITD25 Comments (labs): labs reviewed, ordered TF labs 04/16 Medications/ Parenteral: Mg Sulfate prn, NaCl prn Current Facility-Administered Medications Medication Dose Route Frequency Provider Last Rate Last Admin albuterol (PROVENTIL,VENTOLIN) nebulizer solution 2.5 mg 2.5 mg nebulization Q6H PRN Houston Perkins MD 2.5 mg at 04/10/23 1214 barium sulfate (E-Z-DISK) tablet 700 mg 700 mg oral Once in imaging Gonzales La MD barium sulfate (E-Z-HD) 98 % suspension 340 g 340 g oral Once in imaging Gonzales La MD barium sulfate (E-Z-PAQUE) 96 % (w/w) powder 176 g 176 g oral Once in imaging Gonzales La MD barium sulfate (E-Z-PASTE) 60 % oral cream 454 g 454 g oral Once in imaging Gonzales La MD barium sulfate (LIQUID E-Z PAQUE) 60 % (w/v) suspension 355 mL 355 mL oral Once in imaging Gonzales La MD barium sulfate (LIQUID POLIBAR PLUS) 105 % (w/v), 58 % (w/w) suspension 300 mL 300 mL oral Once in imaging Gonzales La MD barium sulfate (VARIBAR HONEY) 40 % (w/v) 29% (w/w) suspension 250 mL 250 mL oral Once in imaging Gonzales La MD dextrose (GLUTOSE) 40 % gel 15 g 15 g oral PRN Nazia Broussard MD dextrose 5 % (D5W) infusion 100 mL/hr intravenous Continuous PRN Nazia Broussard MD dextrose 50 % in water (D50W) 50% solution 25 mL 25 mL intravenous PRN Nazia Broussard MD glucagon HCL injection 1 mg 1 mg intramuscular PRN Nazia Broussard MD heparin (porcine) injection 5,000 Units 5,000 Units subcutaneous Q8H DAR Nazia Broussard MD 5,000 Units at 04/16/23 0639 lacosamide (VIMPAT) 150 mg in sodium chloride 0.9 % 50 mL IVPB 150 mg intravenous Q12H Daniel Blackwell MD Stopped at 04/16/23 0318 latanoprost (XALATAN) 0.005 % ophthalmic solution 1 drop 1 drop both eyes Nightly Houston Perkins MD 1 drop at 04/15/23 2351 levETIRAcetam (KEPPRA) 2,000 mg in sodium chloride 0.9 % 120 mL IVPB 2,000 mg intravenous HS Nazia Broussard MD Stopped at 04/15/23 2325 levETIRAcetam (KEPPRA) IVPB 1500 mg/100 mL in iso-osmotic sodium chloride (15 mg/mL premix) 1,500 mg intravenous QAM AC Nazia Broussard MD Stopped at 04/16/23 0701 magnesium sulfate IVPB 2000 mg/50 mL in iso-osmotic water (40 mg/mL premix) 2,000 mg intravenous PRN Nazia Broussard MD 25 mL/hr at 04/16/23 0856 2,000 mg at 04/16/23 0856 magnesium sulfate IVPB 4000 mg/100 mL in iso-osmotic water (40 mg/mL premix) 4,000 mg intravenous PRN Nazia Broussard MD Stopped at 04/13/23 1603 potassium chloride IVPB 10 mEq/100 mL in water (0.1 mEq/mL premix) 10 mEq intravenous PREMA Broussard MD Stopped at 04/14/23 1855 sodium phosphate 20 mmol in sodium chloride 0.9 % 250 mL IVPB 20 mmol intravenous PRN Houston Perkins MD Or sodium phosphate 20 mmol in sodium chloride 0.9 % 100 mL IVPB 20 mmol intravenous PRN Houston Perkins MD Stopped at 04/09/23 1409 Or sod phos di, mono-K phos mono (K-PHOS NEUTRAL) 250 mg tablet 2 tablet 2 tablet oral PRN Houston Perkins MD sodium chloride 0.9 % flush 20 mL 20 mL intravenous Q12H Nazia Broussard MD 20 mL at 04/16/23 0001 And sodium chloride 0.9 % flush 20 mL 20 mL intravenous PRN Nazia Broussard MD And sodium chloride 0.9 % flush 40 mL 40 mL intravenous PRN Nazia Broussard MD sodium chloride 0.9 % flush 3 mL 3 mL intravenous PRN Nazia Broussard MD sodium chloride 0.9 % flush 3 mL 3 mL intravenous Q12H DAR Nazia Broussard MD 3 mL at 04/16/23 0852 sodium chloride 0.9 % flush bag 25 mL intravenous PRN Nazia Broussard MD Stopped at 04/16/23 0656 sodium chloride 0.9 % infusion 20 mL/hr intravenous Continuous PRN Nazia Broussard MD Stopped at 04/16/23 0047 terazosin (HYTRIN) capsule 1 mg 1 mg nasogastric Daily Gonzales La MD 1 mg at 04/16/23 0852 Nutrition Focused Physical Findings Last BM 04/15 +PICC, +cortrak Skin (per nursing flow sheets): Skin Color: Pale (04/16/23844) Skin Temp: Warm; Dry (04/16/23844) Skin Integrity: Intact (04/08/23626) Skin Turgor: Non-tenting (04/08/23626) Wound (per nursing flow sheets): Gastrointestinal (per nursing flow sheets): Abdomen Assessment: Soft; Nondistended (04/16/23410) Last BM Date: 04/15/23 (04/16/23410) Passing Flatus: Yes (04/16/23844) RUQ Bowel Sounds: Active (04/16/23844) LUQ Bowel Sounds: Active (04/16/23844) RLQ Bowel Sounds: Active (04/16/23844) LLQ Bowel Sounds: Active (04/16/23 0845) GI Symptoms: None (04/16/23844) Edema (per nursing flow sheets): RLE Edema: +1 (04/16/23844) LLE Edema: +1 (04/16/23844) Intake/ Output Last 24 hrs: Intake/Output Summary (Last 24 hours) at 04/16/2023 1113 Last data filed at 04/16/2023 0845 Gross per 24 hour Intake 1466.74 ml Output -- Net 1466.74 ml Food/Nutrition Related History: Diet/ Nutrition Order Review: Dietary Orders (From admission, onward) Start Ordered 04/13/23 1800 Free water 4 times daily Question: Amount in mL Answer: 100 04/13/23 1525 04/13/23 1524 Tube feeding No tray-Continuous Tube feeding No Tray-Continuous; Nasojejunal feeding tube; Standard; 20; 10; Every 8 hours; 65 Continuous Comments: Osmolite 1.2 References: Formulary Card Question Answer Comment Diet Type: Tube feeding No Tray-Continuous Tube Type: Nasojejunal feeding tube Tube Feeding Formula: Standard Tube Feeding Start Rate (mL/hour): 20 Increase Rate by (mL/hour): 10 Frequency of Rate increase: Every 8 hours Goal Rate (mL/hour): 65 04/13/23 1525 TPN: (Show up to 1 orders; newest on the left.) None Diet History: Spoke with pt's sister and BUSINESS CONSULT from alf. Stated prior to admission pt was eating very well. At the facility he needs watched while eating due to try to eat his food too fast, per BUSINESS CONSULT. However, pt was eating three times per day, 100%. Per pt's sister he loves eating food . Per sister, pt gets chronic bowel obstructions every 2-3 months. Diet Intakes: Pt advanced to Level 4 pureed diet, no liquids 04/16. Oral Supplemental Intake/ Acceptance: None ordered ATT Inpatient Nutrition Support History: TF initiated 04/13 Pt's sister had questions about possible PEG tube. Sister stated she would like to see how pt eats before deciding to place PEG tube. TF: Osmolite 1.2 at 65 ml/hr to provide 1875 Kcal daily 87 gm protein daily 1279 mL Free H2O daily 100% RDI Anthropometrics: Ht Readings from Last Encounters: 04/09/23 167.6 cm (5' 6 ) Last 3 Weight Readings 04/13/23 0356 04/14/23 0500 04/16/23 0358 Weight: 78.9 kg (173 lb 15.1 oz) 78.5 kg (173 lb 1 oz) 74.5 kg (164 lb 3.9 oz) Current Weight: 74.5 kg (bed scale, 04/16) Admit Weight: 74.4 kg (Bed Scale, 04/09) [place] Body Weight: 64.5 kg Weight Changes: 2.8 kg (3.4%) wt loss in < 2 months, not clinically significant Current Body Mass Index: Body mass index is 26.51 kg/m . Comparative Standards: Estimated Energy Needs: 2878-6185 kcals daily. Method and weight used: 25-30 kcal/kg IBW Estimated Protein Needs: 78-130 grams daily. Method and weight used: 1.2-2g protein/kg IBW Estimated Fluid Needs: 5211-0115 ml daily. Method weight used: 1 ml/kcal Comments: Floor needs based on ideal body weight Malnutrition Status: Malnutrition Present: No NUTRITION DIAGNOSIS: Intake Diagnosis: Inadequate oral intake (NI 2.1) Ongoing NUTRITION INTERVENTIONS: Enteral Nutrition: Continue TF of Osmolite 1.2 to provide 1560 ml formula, 1875 kcals, 87 g protein, and 1279 ml free water daily. Meals and snacks: Continue diet, per GLUE MACHINE OPERATOR Coordination of Care: Spoke with RN, pt's sister and BUSINESS CONSULT GOAL(S): Meet estimated calorie and protein needs. NUTRITION MONITORING AND EVALUATION: TF tolerance, PO intake, weight trend, labs, POC and overall status. Dinora Reddy RD, LD Clinical Dietitian [facility] [phone] Images from the original note were not included. [facility] Hospital[facility] Progress Note 04/16/2023 Patient Name: Amol Taylor : 1955 Hospital Day: 9 SUBJECTIVE Patient was seen and examined at bedside. Patient was resting comfortably and reported no concerns. OBJECTIVE Vital Signs: Temp: [36.4 C (97.5 F)-36.9 C (98.5 F)] 36.7 C (98 F) Pulse: [62-77] 62 Resp: [15-18] 15 BP: (93-152)/(57-82) 152/68 SpO2: [95 %-100 %] 99 % O2 Device: None (Room air) O2 Flow Rate (L/min): [0 L/min] 0 L/min Weight: Body mass index is 26.51 kg/m . Admission weight: 74.4 kg (164 lb 0.4 oz) Wt Readings from Last 3 Encounters: 04/16/23 74.5 kg (164 lb 3.9 oz) 04/07/23 78.7 kg (173 lb 8 oz) 02/15/23 81.7 kg (180 lb 3.2 oz) Input/Output: Intake/Output Summary (Last 24 hours) at 04/16/2023 0755 Last data filed at 04/16/2023 0549 Gross per 24 hour Intake 1506.74 ml Output -- Net 1506.74 ml Physical Exam General: NAD, alert HEENT: NC/AT, PERRLA, EOMI, no scleral icterus Neck: Neck supple. No masses or LAD Cardiovascular: Regular rate and rhythm. Normal S1 and S2. No murmurs Pulmonary/Chest: Clear to auscultation bilaterally. No crackles or wheezing Abdominal: Soft, non-distended, non-tender. Bowel sounds are normal Musculoskeletal: No joint redness, swelling, tenderness, warmth, or limited ROM Neurological: Cranial nerves grossly intact Extremities: No edema or rash Labs/Imaging: Recent Results (from the past 24 hour(s)) Magnesium Collection Time: 04/15/23 3:24 PM Result Value Ref Range Magnesium 2.1 1.8 - 2.6 mg/dL Basic Metabolic Panel Collection Time: 04/16/23 5:30 AM Result Value Ref Range Sodium 146 134 - 146 mmol/L Potassium, Bld 4.5 3.5 - 5.0 mmol/L Chloride 111 (H) 98 - 109 mmol/L CO2 28 22 - 32 mmol/L Anion gap 7 5 - 15 mmol/L BUN 17 5 - 27 mg/dL Creatinine 0.60 0.60 - 1.30 mg/dL Glucose 106 (H) 65 - 99 mg/dL Calcium 7.8 (L) 8.5 - 10.5 mg/dL eGFR (CKD-EPI)non-race dependent >90 >59 ml/min/1.73sq.m CBC auto differential Collection Time: 04/16/23 5:30 AM Result Value Ref Range White Blood Cells 7.5 4.0 - 11.0 X10E9/L RBC count 3.28 (L) 4.10 - 5.70 X10E12/L Hemoglobin 10.9 (L) 13.0 - 17.0 g/dL Hematocrit 31.9 (L) 39 - 49 % MCV 97 80 - 100 fL MCH 33.1 27 - 34 pg MCHC 34.0 32 - 36 g/dL RDW 13.5 11.5 - 15.0 % Platelets 173 150 - 450 X10E9/L MPV 7.6 7 - 12 fL % neutrophils 71.5 % % lymphocytes 15.4 % % monocytes 8.4 % % eosinophils 4.2 % % Basophils 0.5 % Neutrophils Absolute (A) 5.4 1.5 - 6.6 X10E9/L Lymphocytes Absolute 1.2 1.0 - 3.5 X10E9/L Monocytes Absolute 0.6 0 - 0.9 X10E9/L Eosinophils Absolute 0.3 0.0 - 0.4 X10E9/L Basophils Absolute 0.0 0.0 - 0.2 X10E9/L Magnesium Collection Time: 04/16/23 5:30 AM Result Value Ref Range Magnesium 1.8 1.8 - 2.6 mg/dL All available laboratory, imaging, and microbiology data has been personally reviewed in detail, and accessible in full per EMR. Medications: heparin (porcine), 5,000 Units, subcutaneous, Q8H DAR lacosamide, 150 mg, intravenous, Q12H latanoprost, 1 drop, both eyes, Nightly levETIRAcetam, 2,000 mg, intravenous, HS levETIRAcetam, 1,500 mg, intravenous, QAM AC [COMPLETED] Consult PICC nurse - Midline, , , Once AND sodium chloride, 20 mL, intravenous, Q12H AND sodium chloride, 20 mL, intravenous, PRN AND sodium chloride, 40 mL, intravenous, PRN sodium chloride, 3 mL, intravenous, Q12H DAR terazosin, 1 mg, nasogastric, Daily ASSESSMENT Dysphagia with strict NPO diet s/p cortrak placement 04/13/23 Asymptomatic bradycardia, resolved EKG showed sinus bradycardia Echo showed normal EF, Grade 1 diastolic dysfunction with no segmental wall motion abnormalities Acute urinary retention, resolved Hypomagnesemia SBO, NG tube removed 04/10/23, resolved SBFT showed no obstruction Hypophosphatemia, resolved History of SBO secondary to previous surgery Chronic normocytic anemia secondary to iron deficiency, anemia of chronic disease, B12 deficiency MRDD History of seizure status post VNS BPH Glaucoma PLAN Cardiology on board, continue telemetry, no further recommendations Neurology signed off, VNS is manually activated so it is not contributing to bradycardia, continue IV Keppra, IV Vimpat, primidone and lamotrigine on hold due to no IV formulation at this time Palliative medicine on board, full code for now, deferring PEG tube placement at this time General surgery signed off Repeat VFSS ordered for today Nutrition managing TF Continue terazosin through cortrak Continue B12 and IV Venofer Daily labs Replace electrolytes as needed DVT prophylaxis: Heparin Diet: TF Code status: Full Discharge planning: [facility] Images from the original note were not included. [facility] Hospital[facility] Progress Note 04/15/2023 Patient Name: Amol Taylor : 1955 Hospital Day: 8 SUBJECTIVE Patient was seen and examined at bedside. He was resting comfortably. He denied being in any pain. OBJECTIVE Vital Signs: Temp: [36.5 C (97.7 F)-36.9 C (98.4 F)] 36.5 C (97.7 F) Pulse: [73-83] 76 Resp: [16-20] 18 BP: (101-120)/(55-67) 101/67 SpO2: [96 %-100 %] 100 % O2 Device: Nasal cannula O2 Flow Rate (L/min): [2 L/min] 2 L/min Weight: Body mass index is 27.93 kg/m . Admission weight: 74.4 kg (164 lb 0.4 oz) Wt Readings from Last 3 Encounters: 04/14/23 78.5 kg (173 lb 1 oz) 04/07/23 78.7 kg (173 lb 8 oz) 02/15/23 81.7 kg (180 lb 3.2 oz) Input/Output: Intake/Output Summary (Last 24 hours) at 04/15/2023 0842 Last data filed at 04/15/2023 0200 Gross per 24 hour Intake 2596.21 ml Output -- Net 2596.21 ml Physical Exam General: NAD, alert HEENT: NC/AT, PERRLA, EOMI, no scleral icterus Neck: Neck supple. No masses or LAD Cardiovascular: Regular rate and rhythm. Normal S1 and S2. No murmurs Pulmonary/Chest: Clear to auscultation bilaterally. No crackles or wheezing Abdominal: Soft, non-distended, non-tender. Bowel sounds are normal Musculoskeletal: No joint redness, swelling, tenderness, warmth, or limited ROM Neurological: Cranial nerves grossly intact Extremities: No edema or rash Labs/Imaging: Recent Results (from the past 24 hour(s)) Magnesium Collection Time: 04/14/23 3:49 PM Result Value Ref Range Magnesium 2.0 1.8 - 2.6 mg/dL Basic Metabolic Panel Collection Time: 04/15/23 6:05 AM Result Value Ref Range Sodium 144 134 - 146 mmol/L Potassium, Bld 4.1 3.5 - 5.0 mmol/L Chloride 111 (H) 98 - 109 mmol/L CO2 27 22 - 32 mmol/L Anion gap 6 5 - 15 mmol/L BUN 11 5 - 27 mg/dL Creatinine 0.67 0.60 - 1.30 mg/dL Glucose 124 (H) 65 - 99 mg/dL Calcium 7.7 (L) 8.5 - 10.5 mg/dL eGFR (CKD-EPI)non-race dependent >90 >59 ml/min/1.73sq.m CBC auto differential Collection Time: 04/15/23 6:05 AM Result Value Ref Range White Blood Cells 10.4 4.0 - 11.0 X10E9/L RBC count 3.13 (L) 4.10 - 5.70 X10E12/L Hemoglobin 10.7 (L) 13.0 - 17.0 g/dL Hematocrit 30.8 (L) 39 - 49 % MCV 99 80 - 100 fL MCH 34.1 (H) 27 - 34 pg MCHC 34.6 32 - 36 g/dL RDW 13.2 11.5 - 15.0 % Platelets 140 (L) 150 - 450 X10E9/L MPV 7.4 7 - 12 fL % neutrophils 80.3 % % lymphocytes 11.7 % % monocytes 6.1 % % eosinophils 1.6 % % Basophils 0.3 % Neutrophils Absolute (A) 8.4 (H) 1.5 - 6.6 X10E9/L Lymphocytes Absolute 1.2 1.0 - 3.5 X10E9/L Monocytes Absolute 0.6 0 - 0.9 X10E9/L Eosinophils Absolute 0.2 0.0 - 0.4 X10E9/L Basophils Absolute 0.0 0.0 - 0.2 X10E9/L Magnesium Collection Time: 04/15/23 6:05 AM Result Value Ref Range Magnesium 1.7 (L) 1.8 - 2.6 mg/dL All available laboratory, imaging, and microbiology data has been personally reviewed in detail, and accessible in full per EMR. Medications: heparin (porcine), 5,000 Units, subcutaneous, Q8H DAR lacosamide, 150 mg, intravenous, Q12H latanoprost, 1 drop, both eyes, Nightly levETIRAcetam, 2,000 mg, intravenous, HS levETIRAcetam, 1,500 mg, intravenous, QAM AC [COMPLETED] Consult PICC nurse - Midline, , , Once AND sodium chloride, 20 mL, intravenous, Q12H AND sodium chloride, 20 mL, intravenous, PRN AND sodium chloride, 40 mL, intravenous, PRN sodium chloride, 3 mL, intravenous, Q12H DAR terazosin, 1 mg, nasogastric, Daily ASSESSMENT Dysphagia with strict NPO diet s/p cortrak placement 04/13/23 Asymptomatic bradycardia, resolved EKG showed sinus bradycardia Echo showed normal EF, Grade 1 diastolic dysfunction with no segmental wall motion abnormalities Acute urinary retention, resolved Hypomagnesemia SBO, NG tube removed 04/10/23, resolved SBFT showed no obstruction Hypophosphatemia, resolved History of SBO secondary to previous surgery Chronic normocytic anemia secondary to iron deficiency, anemia of chronic disease, B12 deficiency MRDD History of seizure status post VNS BPH Glaucoma PLAN Cardiology on board, continue telemetry, no further recommendations Neurology signed off, VNS is manually activated so it is not contributing to bradycardia, continue IV Keppra, IV Vimpat, primidone and lamotrigine on hold due to no IV formulation at this time Palliative medicine on board, full code for now, deferring PEG tube placement at this time General surgery signed off Plan for repeat VFSS tomorrow Nutrition managing TF Continue terazosin through cortrak Continue B12 and IV Venofer Daily labs Replace electrolytes as needed DVT prophylaxis: Heparin Diet: TF Code status: Full Discharge planning: [facility] Images from the original note were not included. [facility] Hospital[facility] Progress Note 04/14/2023 Patient Name: Amol Taylor : 1955 Hospital Day: 7 SUBJECTIVE Patient was seen and examined at bedside. Sister was updated regarding plan. Patient denied any pain and was more communicative today. OBJECTIVE Vital Signs: Temp: [36.4 C (97.5 F)-37.1 C (98.8 F)] 36.6 C (97.9 F) Pulse: [39-92] 73 Resp: [14-27] 20 BP: (105-138)/(60-77) 109/60 SpO2: [95 %-99 %] 98 % O2 Device: Nasal cannula O2 Flow Rate (L/min): [2 L/min] 2 L/min Weight: Body mass index is 27.93 kg/m . Admission weight: 74.4 kg (164 lb 0.4 oz) Wt Readings from Last 3 Encounters: 04/14/23 78.5 kg (173 lb 1 oz) 04/07/23 78.7 kg (173 lb 8 oz) 02/15/23 81.7 kg (180 lb 3.2 oz) Input/Output: Intake/Output Summary (Last 24 hours) at 04/14/2023 5002 Last data filed at 04/13/2023 2336 Gross per 24 hour Intake 1619.11 ml Output 850 ml Net 769.11 ml Physical Exam General: NAD, alert HEENT: NC/AT, PERRLA, EOMI, no scleral icterus Neck: Neck supple. No masses or LAD Cardiovascular: Regular rate and rhythm. Normal S1 and S2. No murmurs Pulmonary/Chest: Clear to auscultation bilaterally. No crackles or wheezing Abdominal: Soft, non-distended, non-tender. Bowel sounds are normal Musculoskeletal: No joint redness, swelling, tenderness, warmth, or limited ROM Neurological: Cranial nerves grossly intact Extremities: No edema or rash Labs/Imaging: Recent Results (from the past 24 hour(s)) Platelet count Collection Time: 04/13/23 11:45 AM Result Value Ref Range Platelets 149 (L) 150 - 450 X10E9/L MPV 7.2 7 - 12 fL Protime & INR Collection Time: 04/13/23 11:45 AM Result Value Ref Range Protime 14.0 (H) 9.8 - 13.2 sec Inr 1.2 (H) 0.8 - 1.1 Basic Metabolic Panel Collection Time: 04/14/23 6:10 AM Result Value Ref Range Sodium 140 134 - 146 mmol/L Potassium, Bld 3.6 3.5 - 5.0 mmol/L Chloride 108 98 - 109 mmol/L CO2 25 22 - 32 mmol/L Anion gap 7 5 - 15 mmol/L BUN 8 5 - 27 mg/dL Creatinine 0.69 0.60 - 1.30 mg/dL Glucose 123 (H) 65 - 99 mg/dL Calcium 8.1 (L) 8.5 - 10.5 mg/dL eGFR (CKD-EPI)non-race dependent >90 >59 ml/min/1.73sq.m CBC auto differential Collection Time: 04/14/23 6:10 AM Result Value Ref Range White Blood Cells 9.2 4.0 - 11.0 X10E9/L RBC count 3.35 (L) 4.10 - 5.70 X10E12/L Hemoglobin 11.2 (L) 13.0 - 17.0 g/dL Hematocrit 32.4 (L) 39 - 49 % MCV 97 80 - 100 fL MCH 33.4 27 - 34 pg MCHC 34.6 32 - 36 g/dL RDW 13.1 11.5 - 15.0 % Platelets 152 150 - 450 X10E9/L MPV 7.4 7 - 12 fL % neutrophils 81.3 % % lymphocytes 10.1 % % monocytes 7.5 % % eosinophils 0.9 % % Basophils 0.2 % Neutrophils Absolute (A) 7.5 (H) 1.5 - 6.6 X10E9/L Lymphocytes Absolute 0.9 (L) 1.0 - 3.5 X10E9/L Monocytes Absolute 0.7 0 - 0.9 X10E9/L Eosinophils Absolute 0.1 0.0 - 0.4 X10E9/L Basophils Absolute 0.0 0.0 - 0.2 X10E9/L Magnesium Collection Time: 04/14/23 6:10 AM Result Value Ref Range Magnesium 1.7 (L) 1.8 - 2.6 mg/dL All available laboratory, imaging, and microbiology data has been personally reviewed in detail, and accessible in full per EMR. Medications: heparin (porcine), 5,000 Units, subcutaneous, Q8H DAR lacosamide, 150 mg, intravenous, Q12H latanoprost, 1 drop, both eyes, Nightly levETIRAcetam, 2,000 mg, intravenous, HS levETIRAcetam, 1,500 mg, intravenous, QAM AC [COMPLETED] Consult PICC nurse - Midline, , , Once AND sodium chloride, 20 mL, intravenous, Q12H AND sodium chloride, 20 mL, intravenous, PRN AND sodium chloride, 40 mL, intravenous, PRN sodium chloride, 3 mL, intravenous, Q12H DAR terazosin, 1 mg, nasogastric, Daily ASSESSMENT Dysphagia with strict NPO diet s/p cortrak placement 04/13/23 Asymptomatic bradycardia, resolved EKG showed sinus bradycardia Echo showed normal EF, Grade 1 diastolic dysfunction with no segmental wall motion abnormalities Acute urinary retention Hypomagnesemia SBO, NG tube removed 04/10/23, resolved SBFT showed no obstruction Hypophosphatemia, resolved History of SBO secondary to previous surgery Chronic normocytic anemia secondary to iron deficiency, anemia of chronic disease, B12 deficiency MRDD History of seizure status post VNS BPH Glaucoma PLAN Cardiology on board, continue telemetry, no further recommendations Neurology signed off, VNS is manually activated so it is not contributing to bradycardia, continue IV Keppra, IV Vimpat, primidone and lamotrigine on hold due to no IV formulation at this time Palliative medicine on board, full code for now, deferring PEG tube placement at this time General surgery signed off Nutrition managing TF Continue terazosin through cortrak Discontinue fluids given that he is on TF now Continue B12 and IV Venofer Daily labs Replace electrolytes as needed DVT prophylaxis: Heparin Diet: TF Code status: Full Discharge planning: [facility] Images from the original note were not included. [facility] [place] [address] PROGRESS NOTE Amol Taylor is resting comfortably in bed. He denies any chest pain or shortness of breath at this time. Denies lightheadedness or dizziness. SUBJECTIVE Allergies: Allergies Allergen Reactions Penicillins Hives and Shortness Of Breath Clindamycin Rash CURRENT MEDICATIONS heparin (porcine), 5,000 Units, subcutaneous, Q8H DAR lacosamide, 150 mg, intravenous, Q12H latanoprost, 1 drop, both eyes, Nightly levETIRAcetam, 2,000 mg, intravenous, HS levETIRAcetam, 1,500 mg, intravenous, QAM AC [COMPLETED] Consult PICC nurse - Midline, , , Once AND sodium chloride, 20 mL, intravenous, Q12H AND sodium chloride, 20 mL, intravenous, PRN AND sodium chloride, 40 mL, intravenous, PRN sodium chloride, 3 mL, intravenous, Q12H DAR tamsulosin, 0.4 mg, oral, Nightly CONTINUOUS INFUSIONS dextrose 5 % in water, 100 mL/hr D5 % and 0.45 % sodium chloride, 75 mL/hr, Last Rate: 75 mL/hr (04/13/23 0842) sodium chloride 0.9 %, 20 mL/hr, Last Rate: 20 mL/hr (04/12/23 1511) Review of Systems: Cardiovascular: No chest pain, dyspnea on exertion, palpitations or loss of consciousness. No cough, hemoptysis, pleuritic pain, or phlebitis. Respiratory: No cough or wheezing, no sputum production, no hematemesis. Neurological: No headache, diplopia, change in muscle strength, numbness or tingling. No change in gait, balance, coordination, mood, affect, memory, mentation, behavior. Hematologic/Lymphatic: No abnormal bruising or bleeding, blood clots or swollen lymph nodes. OBJECTIVE CBC: Results from last 7 days Lab Units 04/13/23 0608 04/12/23 0634 04/11/23 0445 WBC X10E9/L 4.3 4.9 5.6 HEMOGLOBIN g/dL 10.6* 10.7* 10.1* HEMATOCRIT % 30.9* 31.1* 30.5* MCV fL 97 98 99 PLATELETS X10E9/L 136* 132* 118* BMP: Results from last 7 days Lab Units 04/13/23 0604/12/23 18204/12/23 0634 04/11/23 1819 04/11/23 0445 04/10/23 0405 04/09/23 1824 04/09/23 0418 SODIUM mmol/L 144 -- 145 -- 145 144 -- 145 POTASSIUM mmol/L 3.6 -- 3.9 -- 4.0 4.0 -- 4.0 CHLORIDE mmol/L 110* -- 112* -- 112* 110* -- 110* CO2 mmol/L 27 -- 23 -- 24 24 -- 25 BUN mg/dL 10 -- 17 -- 14 17 -- 19 CREATININE mg/dL 0.60 -- 0.71 -- 0.68 0.68 -- 0.78 CALCIUM mg/dL 8.0* -- 8.5 -- 8.5 8.5 -- 8.4* PHOSPHORUS mg/dL -- -- -- -- -- 2.8 3.1 2.3* MAGNESIUM mg/dL 1.6* 1.8 1.6* < > 1.6* 1.9 2.3 1.5* < > = values in this interval not displayed. PT/INR: APTT: MAG: Results from last 7 days Lab Units 04/13/23 0608 04/12/23 1825 04/12/23 0634 MAGNESIUM mg/dL 1.6* 1.8 1.6* D Dimer: Troponin I ProBNP Lipid Panel: No results found for: CHOL , TRIG , HDL , CHOLHDLR Liver Panel: No results found for: ALB HgA1C: No results found for: HGBA1C ABG: CV TESTING HISTORY: ECHO: Echo complete W/O contrast Result Date: 04/12/2023 Left Ventricle: There is mild increased wall thickness/hypertrophy. Systolic function is normal with an ejection fraction of 55-60%. Right Ventricle: Right ventricular size is borderline dilated. Systolic function is normal. Normal tricuspid annular plane systolic excursion. Aortic Valve: There is trace to mild regurgitation. There is no evidence of aortic valve stenosis. Mitral Valve: There is trace regurgitation. There is no evidence of mitral valve stenosis. STRESS: No results found. HOLTER: No results found. CARDIAC CATH: No results found. CAROTID: No results found. CXR: X-ray chest 1 view Result Date: 04/12/2023 XR CHEST 1 VW History: SOB. Left arm weakness seizures One view study. Comparison: 04/10/2023 Impression: * No significant interval change.Right PICC line remains intact. No focal airspace disease or infiltrate is seen Finalized by Yolanda Alejandre MD on 04/12/2023 4:09 PM X-ray chest 1 view Result Date: 04/10/2023 XR CHEST 1 VW 04/10/2023 1:55 PM INDICATION: r/o pneumonia COMPARISON: [facility]ors dating back to 05/14/2020 TECHNIQUE: AP view the chest was obtained FINDINGS: Right-sided PICC with the tip terminating within the expected region of the cavoatrial junction. Nasogastric tube courses below the diaphragm. Distal tip is obscured by enteric contrast. No focal consolidations.There is no pneumothorax. There is no pleural effusion. The cardiomediastinal silhouette is unremarkable. No acute osseous abnormalities. IMPRESSION: No acute cardiopulmonary process. Lines and tubes as above. Finalized by Irwin Hou on 04/10/2023 2:13 PM X-ray chest 1 view Result Date: 04/07/2023 XR CHEST 1 VW HISTORY: Abdominal pain, NG tube placement COMPARISON: Chest x-ray 02/15/2023 FINDINGS: Enteric tube terminates above the level of the GE junction. Diffuse gaseous distention of the stomach and both large and small bowel. Visualized lung bases are clear. IMPRESSION: * Enteric tube terminates above the level of the GE junction, recommend advancing 13 cm. Approved by Resident Angel Givens DO on 04/07/2023 10:28 PM IJuan MD have personally reviewed the image(s) and agree with and/or edited the report Finalized by Juan Torres MD on 04/07/2023 10:32 PM X-ray chest 2 views Result Date: 02/15/2023 XR CHEST 2 VWS HISTORY: Fever COMPARISON: 01/29/2021 FINDINGS: AP erect and lateral upright films obtained. Battery pack overlies the left chest with lead extending superiorly into the left neck. The cardiomediastinal silhouette is within normal limits. No pneumothorax or pleural effusion. Right lower lobe opacity. IMPRESSION: Right lower lobe opacity, which may represent pneumonia in the appropriate clinical setting. Approved by Resident Alex Azevedo MD on 02/15/2023 9:29 AM Dimas Ng MD have personally reviewed the image(s) and agree with and/or edited the report Finalized by Dimas Delgado MD on 02/15/2023 9:33 AM X-ray chest 1 view Result Date: 02/13/2023 EXAMINATION: ONE XRAY VIEW OF THE CHEST 02/13/2023 6:30 am COMPARISON: February 11, 2023 HISTORY: ORDERING SYSTEM PROVIDED HISTORY: cough TECHNOLOGIST PROVIDED HISTORY: cough FINDINGS: There is poor inspiration with crowding of the bronchovascular markings. Stable right perihilar infiltrate. Possible small left-sided pleural effusion. No pneumothorax. Stable cardiac and mediastinal silhouettes. Stable appearance of the chest. X-ray chest 1 view Result Date: 02/11/2023 EXAMINATION: ONE XRAY VIEW OF THE CHEST 02/11/2023 9:19 am COMPARISON: 02/10/2023 HISTORY: ORDERING SYSTEM PROVIDED HISTORY: cough TECHNOLOGIST PROVIDED HISTORY: cough FINDINGS: Enteric tube terminates in the stomach. New right lower lobe patchy pulmonary opacity. The left lung is clear. There is no effusion or pneumothorax. The cardiomediastinal silhouette is without acute process. The osseous structures are without acute process. Cervical stimulator leads with generator in the left chest wall. New right lower lobe patchy pulmonary opacity representing pneumonia or atelectasis. X-ray chest 1 view Result Date: 02/10/2023 EXAMINATION: ONE XRAY VIEW OF THE CHEST 02/10/2023 3:45 pm COMPARISON: 06/12/2022 HISTORY: ORDERING SYSTEM PROVIDED HISTORY: rule out aspiration. TECHNOLOGIST PROVIDED HISTORY: rule out aspiration. FINDINGS: NG tube with tip in the stomach. Stable stimulating device with distal portion overlying the left neck. Mild left basilar opacities suggesting atelectasis or infiltrate. Possible small left pleural effusion. There is no pneumothorax. The cardiomediastinal silhouette is stable. The osseous structures are stable. Mild left basilar opacities suggesting atelectasis or infiltrate.. TELEMETRY: Sinus bradycardia PHYSICAL EXAM Admission Weight: Weight: 74.4 kg (164 lb 0.4 oz) I/O last 3 completed shifts: In: 2495.4 [I.V.:1418.7; IV Piggyback:1076.7] Out: 1425 [Urine:1425] Weight change: -0.5 kg (-1 lb 1.6 oz) Wt Readings from Last 3 Encounters: 04/13/23 78.9 kg (173 lb 15.1 oz) 04/07/23 78.7 kg (173 lb 8 oz) 02/15/23 81.7 kg (180 lb 3.2 oz) Vitals: Vitals: 04/13/23 0356 04/13/23 0729 04/13/23 0812 04/13/23 1000 BP: 122/62 125/68 Pulse: (!) 43 (!) 43 (!) 39 (!) 40 Resp: 18 13 18 Temp: 36.4 C (97.5 F) 36.7 C (98.1 F) 36.7 C (98.1 F) TempSrc: Temporal Axillary Oral SpO2: 95% 99% Weight: 78.9 kg (173 lb 15.1 oz) Height: Admit Weight Weight: 74.4 kg (164 lb 0.4 oz) Last 3 Weights Last 3 Weight Readings 04/11/23 0500 04/12/23 0332 04/13/23 0356 Weight: 79.2 kg (174 lb 9.7 oz) 79.4 kg (175 lb 0.7 oz) 78.9 kg (173 lb 15.1 oz) Body mass index is 28.08 kg/m . INTAKE/OUTPUT I/O last 3 completed shifts: In: 2495.4 [I.V.:1418.7; IV Piggyback:1076.7] Out: 1425 [Urine:1425] Intake/Output Summary (Last 24 hours) at 04/13/2023 1056 Last data filed at 04/13/2023 0932 Gross per 24 hour Intake 3181.29 ml Output 1425 ml Net 1756.29 ml General appearance: Alertand cooperative, In no acute distress Neck: No JVD, no carotid bruit, neck supple, trachea midline Lungs: Clear to ausculation bilaterally, no use of accessory muscles Heart:: Slow rate normal rhythm with normal S1 and S2, no murmurs and no gallops. Extremities: No edema ASSESSMENT Asymptomatic sinus bradycardia Preserved LV function per TTE 04/12/2023 without valvulopathy Presented for nausea/vomiting with small bowel obstruction MRDD Hypomagnesemia, replace History of seizures Chronic normocytic anemia History of vagal nerve stimulator PLAN Patient has persistent sinus bradycardia without any signs of higher degree AV block. Neurology has been consulted given patient having a vagal nerve stimulator as it may need interrogated and readjusted to allow for better increased heart rate. Nothing further from a cardiology standpoint at this time. XAVIER SEGAL PA-C This note was completed using a voice sidewalk repairer system. Every effort was made to ensure accuracy. However, inadvertent computerized sidewalk repairer errors may be present. Xavier Segal PA-C 04/13/23 1057 Images from the original note were not included. [facility] 04/13/2023 Patient Name: Amol Taylor : 1955 Hospital Day: 6 SUBJECTIVE Patient was seen and examined at bedside. Patient denied any fevers, chills, chest pain, shortness of breath, nausea, vomiting, diarrhea, constipation, dysuria, hematuria. OBJECTIVE Vital Signs: Temp: [36.4 C (97.5 F)-36.7 C (98.1 F)] 36.7 C (98.1 F) Pulse: [39-43] 39 Resp: [13-29] 18 BP: (122-154)/(57-68) 125/68 SpO2: [92 %-100 %] 99 % O2 Device: Nasal cannula O2 Flow Rate (L/min): [0 L/min-2 L/min] 2 L/min Weight: Body mass index is 28.08 kg/m . Admission weight: 74.4 kg (164 lb 0.4 oz) Wt Readings from Last 3 Encounters: 04/13/23 78.9 kg (173 lb 15.1 oz) 04/07/23 78.7 kg (173 lb 8 oz) 02/15/23 81.7 kg (180 lb 3.2 oz) Input/Output: Intake/Output Summary (Last 24 hours) at 04/13/2023 0851 Last data filed at 04/13/2023 0638 Gross per 24 hour Intake 2495.41 ml Output 1425 ml Net 1070.41 ml Physical Exam General: NAD, alert HEENT: NC/AT, PERRLA, EOMI, no scleral icterus Neck: Neck supple. No masses or LAD Cardiovascular: Regular rate and rhythm. Normal S1 and S2. No murmurs Pulmonary/Chest: Clear to auscultation bilaterally. No crackles or wheezing Abdominal: Soft, non-distended, non-tender. Bowel sounds are normal Musculoskeletal: No joint redness, swelling, tenderness, warmth, or limited ROM Neurological: Cranial nerves grossly intact Extremities: No edema or rash Labs/Imaging: Recent Results (from the past 24 hour(s)) Magnesium Collection Time: 04/12/23 6:25 PM Result Value Ref Range Magnesium 1.8 1.8 - 2.6 mg/dL Basic Metabolic Panel Collection Time: 04/13/23 6:08 AM Result Value Ref Range Sodium 144 134 - 146 mmol/L Potassium, Bld 3.6 3.5 - 5.0 mmol/L Chloride 110 (H) 98 - 109 mmol/L CO2 27 22 - 32 mmol/L Anion gap 7 5 - 15 mmol/L BUN 10 5 - 27 mg/dL Creatinine 0.60 0.60 - 1.30 mg/dL Glucose 95 65 - 99 mg/dL Calcium 8.0 (L) 8.5 - 10.5 mg/dL eGFR (CKD-EPI)non-race dependent >90 >59 ml/min/1.73sq.m CBC auto differential Collection Time: 04/13/23 6:08 AM Result Value Ref Range White Blood Cells 4.3 4.0 - 11.0 X10E9/L RBC count 3.18 (L) 4.10 - 5.70 X10E12/L Hemoglobin 10.6 (L) 13.0 - 17.0 g/dL Hematocrit 30.9 (L) 39 - 49 % MCV 97 80 - 100 fL MCH 33.2 27 - 34 pg MCHC 34.2 32 - 36 g/dL RDW 13.1 11.5 - 15.0 % Platelets 136 (L) 150 - 450 X10E9/L MPV 7.6 7 - 12 fL % neutrophils 54.6 % % lymphocytes 29.1 % % monocytes 10.8 % % eosinophils 4.7 % % Basophils 0.8 % Neutrophils Absolute (A) 2.4 1.5 - 6.6 X10E9/L Lymphocytes Absolute 1.2 1.0 - 3.5 X10E9/L Monocytes Absolute 0.5 0 - 0.9 X10E9/L Eosinophils Absolute 0.2 0.0 - 0.4 X10E9/L Basophils Absolute 0.0 0.0 - 0.2 X10E9/L Magnesium Collection Time: 04/13/23 6:08 AM Result Value Ref Range Magnesium 1.6 (L) 1.8 - 2.6 mg/dL All available laboratory, imaging, and microbiology data has been personally reviewed in detail, and accessible in full per EMR. Medications: heparin (porcine), 5,000 Units, subcutaneous, Q8H DAR iron sucrose, 200 mg, intravenous, Daily lacosamide, 150 mg, intravenous, Q12H latanoprost, 1 drop, both eyes, Nightly levETIRAcetam, 2,000 mg, intravenous, HS levETIRAcetam, 1,500 mg, intravenous, QAM AC [COMPLETED] Consult PICC nurse - Midline, , , Once AND sodium chloride, 20 mL, intravenous, Q12H AND sodium chloride, 20 mL, intravenous, PRN AND sodium chloride, 40 mL, intravenous, PRN sodium chloride, 3 mL, intravenous, Q12H DAR tamsulosin, 0.4 mg, oral, Nightly ASSESSMENT Dysphagia with strict NPO diet Asymptomatic bradycardia EKG showed sinus bradycardia Echo showed normal EF, Grade 1 diastolic dysfunction with no segmental wall motion abnormalities Acute urinary retention Hypomagnesemia SBO, NG tube removed 04/10/23, resolved SBFT showed no obstruction Hypophosphatemia, resolved History of SBO secondary to previous surgery Chronic normocytic anemia secondary to iron deficiency, anemia of chronic disease, B12 deficiency MRDD History of seizure status post VNS BPH Glaucoma PLAN Cardiology on board, continue telemetry, recommended VNS interrogation Neurology reconsulted for VNS interrogation, appreciate recs. Continue IV Keppra, IV Vimpat, primidone and lamotrigine on hold due to no IV formulation at this time Palliative medicine consulted, appreciate recs General surgery signed off Discussed with his POA and guardian who reported she is ok with NG tube being placed for TF but at this time she is not interested in PEG tube Nutrition consulted for TF Start terazosin through cortrak Remove will Continue D5 1/2 NS at 75 mL/hr Continue B12 and IV Venofer Daily labs Replace electrolytes as needed DVT prophylaxis: Heparin Diet: NPO Code status: Full Discharge planning: [facility] Images from the original note were not included. [facility] 04/12/2023 Patient Name: Amol Taylor : 1955 Hospital Day: 5 SUBJECTIVE Patient was seen and examined at bedside. Patient reportedly had a BM this morning. OBJECTIVE Vital Signs: Temp: [36.2 C (97.2 F)-36.9 C (98.5 F)] 36.2 C (97.2 F) Pulse: [38-45] 42 Resp: [20-28] 20 BP: (96-141)/(52-78) 141/53 SpO2: [94 %-99 %] 98 % O2 Device: None (Room air) O2 Flow Rate (L/min): [0 L/min] 0 L/min Weight: Body mass index is 28.25 kg/m . Admission weight: 74.4 kg (164 lb 0.4 oz) Wt Readings from Last 3 Encounters: 04/12/23 79.4 kg (175 lb 0.7 oz) 04/07/23 78.7 kg (173 lb 8 oz) 02/15/23 81.7 kg (180 lb 3.2 oz) Input/Output: Intake/Output Summary (Last 24 hours) at 04/12/2023 0804 Last data filed at 04/11/2023 1530 Gross per 24 hour Intake 1323.7 ml Output -- Net 1323.7 ml Physical Exam General: NAD, alert HEENT: NC/AT, PERRLA, EOMI, no scleral icterus Neck: Neck supple. No masses or LAD Cardiovascular: Regular rate and rhythm. Normal S1 and S2. No murmurs Pulmonary/Chest: Rhonchi appreciated throughout Abdominal: Soft, non-distended, non-tender. Bowel sounds are normal Musculoskeletal: No joint redness, swelling, tenderness, warmth, or limited ROM Neurological: Cranial nerves grossly intact Extremities: No edema or rash Labs/Imaging: Recent Results (from the past 24 hour(s)) Magnesium Collection Time: 04/11/23 6:19 PM Result Value Ref Range Magnesium 2.2 1.8 - 2.6 mg/dL Basic Metabolic Panel Collection Time: 04/12/23 6:34 AM Result Value Ref Range Sodium 145 134 - 146 mmol/L Potassium, Bld 3.9 3.5 - 5.0 mmol/L Chloride 112 (H) 98 - 109 mmol/L CO2 23 22 - 32 mmol/L Anion gap 10 5 - 15 mmol/L BUN 17 5 - 27 mg/dL Creatinine 0.71 0.60 - 1.30 mg/dL Glucose 81 65 - 99 mg/dL Calcium 8.5 8.5 - 10.5 mg/dL eGFR (CKD-EPI)non-race dependent >90 >59 ml/min/1.73sq.m CBC auto differential Collection Time: 04/12/23 6:34 AM Result Value Ref Range White Blood Cells 4.9 4.0 - 11.0 X10E9/L RBC count 3.18 (L) 4.10 - 5.70 X10E12/L Hemoglobin 10.7 (L) 13.0 - 17.0 g/dL Hematocrit 31.1 (L) 39 - 49 % MCV 98 80 - 100 fL MCH 33.8 27 - 34 pg MCHC 34.6 32 - 36 g/dL RDW 13.1 11.5 - 15.0 % Platelets 132 (L) 150 - 450 X10E9/L MPV 7.1 7 - 12 fL % neutrophils 61.7 % % lymphocytes 22.7 % % monocytes 11.5 % % eosinophils 3.5 % % Basophils 0.6 % Neutrophils Absolute (A) 3.0 1.5 - 6.6 X10E9/L Lymphocytes Absolute 1.1 1.0 - 3.5 X10E9/L Monocytes Absolute 0.6 0 - 0.9 X10E9/L Eosinophils Absolute 0.2 0.0 - 0.4 X10E9/L Basophils Absolute 0.0 0.0 - 0.2 X10E9/L Magnesium Collection Time: 04/12/23 6:34 AM Result Value Ref Range Magnesium 1.6 (L) 1.8 - 2.6 mg/dL All available laboratory, imaging, and microbiology data has been personally reviewed in detail, and accessible in full per EMR. Medications: cyanocobalamin, 1,000 mcg, intramuscular, Daily heparin (porcine), 5,000 Units, subcutaneous, Q8H DAR iron sucrose, 200 mg, intravenous, Daily lacosamide, 150 mg, intravenous, Q12H latanoprost, 1 drop, both eyes, Nightly levETIRAcetam, 2,000 mg, intravenous, HS levETIRAcetam, 1,500 mg, intravenous, QAM AC [COMPLETED] Consult PICC nurse - Midline, , , Once AND sodium chloride, 20 mL, intravenous, Q12H AND sodium chloride, 20 mL, intravenous, PRN AND sodium chloride, 40 mL, intravenous, PRN sodium chloride, 3 mL, intravenous, Q12H DAR ASSESSMENT Dysphagia with strict NPO diet Asymptomatic bradycardia EKG showed sinus bradycardia Hypomagnesemia SBO, NG tube removed 04/10/23, resolved SBFT showed no obstruction Hypophosphatemia, resolved History of SBO secondary to previous surgery Chronic normocytic anemia secondary to iron deficiency, anemia of chronic disease, B12 deficiency MRDD History of seizure status post VNS BPH Glaucoma PLAN Cardiology on board, pending echo, continue telemetry Will discuss with guardian regarding goals of care and possible peg tube for nutrition and hydration given strict NPO status General surgery signed off Neurology signed off, continue IV Keppra, IV Vimpat, primidone and lamotrigine on hold due to no IV formulation at this time Continue B12 and IV Venofer Daily labs Replace electrolytes as needed ADDENDUM Discussed with sister regarding alternatives source of hydration and nutrition including TPN vs TF. Also discussed idea of potential hospice as an alternative to value quality over quantity of life. She reported she needs to discuss this over with their brother and she will get back to us. Pending CXR to r/o pneumonia given rhonchi on exam. DVT prophylaxis: Heparin Diet: NPO Code status: Full Discharge planning: [facility] General Surgery B Daily Progress Note IP Day: 3 Subjective: No acute overnight events. Now having bowel movements. Denies nausea and vomiting. Tolerating a CLD. HDS, afebrile, WBC 5.6 Objective: Vitals: 04/11/23 0803 BP: Pulse: Resp: Temp: 36.5 C (97.7 F) SpO2: Temp: [36.3 C (97.3 F)-37.1 C (98.8 F)] 36.5 C (97.7 F) Pulse: [51-87] 51 Resp: [18-33] 22 BP: (108-149)/(62-78) 108/62 SpO2: [93 %-99 %] 96 % O2 Device: None (Room air) O2 Flow Rate (L/min): [0 L/min] 0 L/min Allergies Allergen Reactions Penicillins Hives and Shortness Of Breath Clindamycin Rash Intake/Output last 3 shifts: I/O last 3 completed shifts: In: 3931.3 [I.V.:3104; IV Piggyback:827.4] Out: 1100 [Emesis/NG output:1100] Intake/Output this shift: No intake/output data recorded. Dietary Orders (From admission, onward) Start Ordered 04/10/23 173 Adult diet Clear Liquid; No carbonated beverages Diet effective now Question Answer Comment Diet Type: Clear Liquid Additional Liquid/Fluid Modifiers: No carbonated beverages 04/10/231733 Physical Exam General Appearance: Minimal responsiveness due to sleeping, No Acute Distress Neck: Trachea Midline, No jugular venous distension Pulmonary: Unlabored breathing. No expiratory wheeze. Cardiac: Regular rate, normotensive Abdomen: Soft, non-tender, non-distended and no peritonitis. Extremity: No edema Bilateral Upper and lower Extremities Skin: warm and dry without rash Eyes: no scleral icterus Laboratory Data: Lab Results Component Value Date WBC 5.6 04/11/2023 HGB 10.1 (L) 04/11/2023 HCT 30.5 (L) 04/11/2023 MCV 99 04/11/2023 PLT 118 (L) 04/11/2023 Lab Results Component Value Date GLU 80 04/11/2023 CALCIUM 8.5 04/11/2023 K 4.0 04/11/2023 CO2 24 04/11/2023 CL 112 (H) 04/11/2023 BUN 14 04/11/2023 CREATININE 0.68 04/11/2023 No results found for: AMYLASE Lab Results Component Value Date LIPASE 39 04/07/2023 Lab Results Component Value Date ALT 14 04/08/2023 AST 15 04/08/2023 ALKPHOS 128 04/08/2023 No results found for: INR , PROTIME cyanocobalamin, 1,000 mcg, intramuscular, Daily heparin (porcine), 5,000 Units, subcutaneous, Q8H DAR iron sucrose, 200 mg, intravenous, Daily lacosamide, 150 mg, intravenous, Q12H latanoprost, 1 drop, both eyes, Nightly levETIRAcetam, 2,000 mg, intravenous, HS levETIRAcetam, 1,500 mg, intravenous, QAM AC [COMPLETED] Consult PICC nurse - Midline, , , Once AND sodium chloride, 20 mL, intravenous, Q12H AND sodium chloride, 20 mL, intravenous, PRN AND sodium chloride, 40 mL, intravenous, PRN sodium chloride, 3 mL, intravenous, Q12H DAR albuterol dextrose dextrose 5 % in water dextrose 50 % in water (D50W) glucagon (human recombinant) magnesium sulfate magnesium sulfate potassium chloride in water sodium phosphate IV OR sodium phosphate IV - central line OR sod phos di, mono-K phos mono [COMPLETED] Consult PICC nurse - Midline AND sodium chloride AND sodium chloride AND sodium chloride sodium chloride sodium chloride sodium chloride 0.9 % Imaging: Fluoroscopy small bowel FL SMALL BOWEL HISTORY: Small bowel obstruction COMPARISON: CT abdomen/pelvis 04/07/2023 FINDINGS: Images: 5 [place] view shows a nonobstructive bowel gas pattern. No definite abnormal calcifications overlying the kidneys or ureters. Normal progression of contrast through the small bowel. The duodenal, jejunal, and ileal mucosal pattern is unremarkable. Contrast appears to be within the ascending colon by 4 hours after ingestion. IMPRESSION: * No evidence of small bowel obstruction. Approved by Resident Bunny Murillo MD on 04/10/2023 3:06 PM IStevie MD have personally reviewed the image(s) and agree with and/or edited the report Finalized by Stevie Landa MD on 04/10/2023 3:20 PM X-ray chest 1 view XR CHEST 1 VW 04/10/2023 1:55 PM INDICATION: r/o pneumonia COMPARISON: Priors dating back to 05/14/2020 TECHNIQUE: AP view the chest was obtained FINDINGS: Right-sided PICC with the tip terminating within the expected region of the cavoatrial junction. Nasogastric tube courses below the diaphragm. Distal tip is obscured by enteric contrast. No focal consolidations.There is no pneumothorax. There is no pleural effusion. The cardiomediastinal silhouette is unremarkable. No acute osseous abnormalities. IMPRESSION: No acute cardiopulmonary process. Lines and tubes as above. Finalized by Irwin Hou on 04/10/2023 2:13 PM Assessment: Amol Taylor is a 68 [address] concerns for SBO now having bowel movements after SBFT Plan: No acute surgical intervention at this time Pain and nausea control Advance diet as tolerated Continue care per primary General surgery will continue to follow Ernesto Serra MD General Surgery Resident, PGY-1 General Surgery B 6a-6p pager #[phone] 6p-6a pager #[phone] Associated attestation - Hadley Dave MD - 04/11/2023 1:10 PM EST Attending Attestation: I saw the patient. I participated and was physically present during the critical/gee portions of the service. I was directly involved in the management and treatment plan of the patient. I reviewed the resident's note. Additional Notes/Findings: Medical Decision Making: high Having bowel movements. White count normal Images from the original note were not included. [facility] Progress Note 04/11/2023 Patient Name: Amol Taylor : 1955 Hospital Day: 4 SUBJECTIVE Patient was seen and examined at bedside. Patient denied any bowel movements or flatulence. Nursing had no concerns. Overnight he had bradycardia. OBJECTIVE Vital Signs: Temp: [36.3 C (97.3 F)-37.1 C (98.8 F)] 36.5 C (97.7 F) Pulse: [51-87] 51 Resp: [18-33] 22 BP: (108-149)/(62-78) 108/62 SpO2: [93 %-99 %] 96 % O2 Device: None (Room air) O2 Flow Rate (L/min): [0 L/min] 0 L/min Weight: Body mass index is 28.18 kg/m . Admission weight: 74.4 kg (164 lb 0.4 oz) Wt Readings from Last 3 Encounters: 04/11/23 79.2 kg (174 lb 9.7 oz) 04/07/23 78.7 kg (173 lb 8 oz) 02/15/23 81.7 kg (180 lb 3.2 oz) Input/Output: Intake/Output Summary (Last 24 hours) at 04/11/2023 0808 Last data filed at 04/10/2023 1547 Gross per 24 hour Intake 1285.86 ml Output -- Net 1285.86 ml Physical Exam General: NAD, alert HEENT: NC/AT, PERRLA, EOMI, no scleral icterus Neck: Neck supple. No masses or LAD Cardiovascular: Slow rate and regular rhythm. Normal S1 and S2. No murmurs Pulmonary/Chest: Clear to auscultation bilaterally. No crackles or wheezing Abdominal: Soft, non-distended, non-tender. Bowel sounds are normal Musculoskeletal: No joint redness, swelling, tenderness, warmth, or limited ROM Neurological: Cranial nerves grossly intact Extremities: No edema or rash Labs/Imaging: Recent Results (from the past 24 hour(s)) Basic Metabolic Panel Collection Time: 04/11/23 4:45 AM Result Value Ref Range Sodium 145 134 - 146 mmol/L Potassium, Bld 4.0 3.5 - 5.0 mmol/L Chloride 112 (H) 98 - 109 mmol/L CO2 24 22 - 32 mmol/L Anion gap 9 5 - 15 mmol/L BUN 14 5 - 27 mg/dL Creatinine 0.68 0.60 - 1.30 mg/dL Glucose 80 65 - 99 mg/dL Calcium 8.5 8.5 - 10.5 mg/dL eGFR (CKD-EPI)non-race dependent >90 >59 ml/min/1.73sq.m CBC auto differential Collection Time: 04/11/23 4:45 AM Result Value Ref Range White Blood Cells 5.6 4.0 - 11.0 X10E9/L RBC count 3.08 (L) 4.10 - 5.70 X10E12/L Hemoglobin 10.1 (L) 13.0 - 17.0 g/dL Hematocrit 30.5 (L) 39 - 49 % MCV 99 80 - 100 fL MCH 32.9 27 - 34 pg MCHC 33.2 32 - 36 g/dL RDW 13.1 11.5 - 15.0 % Platelets 118 (L) 150 - 450 X10E9/L MPV 7.1 7 - 12 fL % neutrophils 73.8 % % lymphocytes 16.2 % % monocytes 7.9 % % eosinophils 1.6 % % Basophils 0.5 % Neutrophils Absolute (A) 4.1 1.5 - 6.6 X10E9/L Lymphocytes Absolute 0.9 (L) 1.0 - 3.5 X10E9/L Monocytes Absolute 0.4 0 - 0.9 X10E9/L Eosinophils Absolute 0.1 0.0 - 0.4 X10E9/L Basophils Absolute 0.0 0.0 - 0.2 X10E9/L Magnesium Collection Time: 04/11/23 4:45 AM Result Value Ref Range Magnesium 1.6 (L) 1.8 - 2.6 mg/dL All available laboratory, imaging, and microbiology data has been personally reviewed in detail, and accessible in full per EMR. Medications: cyanocobalamin, 1,000 mcg, intramuscular, Daily heparin (porcine), 5,000 Units, subcutaneous, Q8H DAR iron sucrose, 200 mg, intravenous, Daily lacosamide, 150 mg, intravenous, Q12H latanoprost, 1 drop, both eyes, Nightly levETIRAcetam, 2,000 mg, intravenous, HS levETIRAcetam, 1,500 mg, intravenous, QAM AC [COMPLETED] Consult PICC nurse - Midline, , , Once AND sodium chloride, 20 mL, intravenous, Q12H AND sodium chloride, 20 mL, intravenous, PRN AND sodium chloride, 40 mL, intravenous, PRN sodium chloride, 3 mL, intravenous, Q12H DAR ASSESSMENT SBO, NG tube removed 04/10/23 SBFT showed no obstruction Asymptomatic bradycardia EKG showed sinus bradycardia Hypomagnesemia, resolved Hypophosphatemia, resolved History of SBO secondary to previous surgery Chronic normocytic anemia secondary to iron deficiency, anemia of chronic disease, B12 deficiency MRDD History of seizure status post VNS BPH Glaucoma PLAN General surgery on board, advanced to CLD, NG tube discontinued Neurology signed off, continue IV Keppra, IV Vimpat, primidone and lamotrigine on hold due to no IV formulation at this time Discontinue fluids given that he is on a CLD now Discussed with nursing to encourage PO intake Continue B12 and IV Venofer Daily labs Replace electrolytes as needed DVT prophylaxis: Heparin Diet: CLD Code status: Full Discharge planning: [facility] General Surgery B Daily Progress Note IP Day: 2 Subjective: No acute overnight events. States he had a bowel movement but this was not confirmed by nursing. Denies nausea and vomiting. HDS, afebrile, WBC 7.8. NG tube with 700 cc output Objective: Vitals: 04/10/23 0735 BP: 132/67 Pulse: 74 Resp: 23 Temp: 36.9 C (98.5 F) SpO2: 93% Temp: [36.3 C (97.3 F)-37.5 C (99.5 F)] 36.9 C (98.5 F) Pulse: [74-90] 74 Resp: [18-27] 23 BP: (121-138)/(67-86) 132/67 SpO2: [93 %-95 %] 93 % O2 Device: None (Room air) O2 Flow Rate (L/min): [0 L/min] 0 L/min Allergies Allergen Reactions Penicillins Hives and Shortness Of Breath Clindamycin Rash Intake/Output last 3 shifts: I/O last 3 completed shifts: In: - Out: 1750 [Urine:550; Emesis/NG output:1200] Intake/Output this shift: I/O this shift: In: 2645.5 [I.V.:2355.2; IV Piggyback:290.3] Out: 400 [Emesis/NG output:400] Dietary Orders (From admission, onward) Start Ordered 04/08/23 09 Adult diet NPO Diet effective now Question: Diet Type: Answer: NPO 04/08/23 0937 Physical Exam General Appearance: Minimal responsiveness due to sleeping, No Acute Distress Neck: Trachea Midline, No jugular venous distension Pulmonary: Unlabored breathing. No expiratory wheeze. Cardiac: Regular rate, normotensive Abdomen: Soft, non-tender, non-distended and no peritonitis. Extremity: No edema Bilateral Upper and lower Extremities Skin: warm and dry without rash Eyes: no scleral icterus Laboratory Data: Lab Results Component Value Date WBC 7.8 04/10/2023 HGB 10.8 (L) 04/10/2023 HCT 31.2 (L) 04/10/2023 MCV 97 04/10/2023 PLT 148 (L) 04/10/2023 Lab Results Component Value Date GLU 77 04/10/2023 CALCIUM 8.5 04/10/2023 K 4.0 04/10/2023 CO2 24 04/10/2023 CL 110 (H) 04/10/2023 BUN 17 04/10/2023 CREATININE 0.68 04/10/2023 No results found for: AMYLASE Lab Results Component Value Date LIPASE 39 04/07/2023 Lab Results Component Value Date ALT 14 04/08/2023 AST 15 04/08/2023 ALKPHOS 128 04/08/2023 No results found for: INR , PROTIME cyanocobalamin, 1,000 mcg, intramuscular, Daily heparin (porcine), 5,000 Units, subcutaneous, Q8H DAR iron sucrose, 200 mg, intravenous, Daily lacosamide, 150 mg, intravenous, Q12H latanoprost, 1 drop, both eyes, Nightly levETIRAcetam, 2,000 mg, intravenous, HS levETIRAcetam, 1,500 mg, intravenous, QAM AC [COMPLETED] Consult PICC nurse - Midline, , , Once AND sodium chloride, 20 mL, intravenous, Q12H AND sodium chloride, 20 mL, intravenous, PRN AND sodium chloride, 40 mL, intravenous, PRN sodium chloride, 3 mL, intravenous, Q12H DAR albuterol dextrose dextrose 5 % in water dextrose 50 % in water (D50W) glucagon (human recombinant) magnesium sulfate magnesium sulfate potassium chloride in water sodium phosphate IV OR sodium phosphate IV - central line OR sod phos di, mono-K phos mono [COMPLETED] Consult PICC nurse - Midline AND sodium chloride AND sodium chloride AND sodium chloride sodium chloride sodium chloride sodium chloride 0.9 % Imaging: X-ray chest 1 view XR CHEST 1 VW HISTORY: Abdominal pain, NG tube placement COMPARISON: Chest x-ray 02/15/2023 FINDINGS: Enteric tube terminates above the level of the GE junction. Diffuse gaseous distention of the stomach and both large and small bowel. Visualized lung bases are clear. IMPRESSION: * Enteric tube terminates above the level of the GE junction, recommend advancing 13 cm. Approved by Resident Angel Givens DO on 04/07/2023 10:28 PM IJuan MD have personally reviewed the image(s) and agree with and/or edited the report Finalized by Juan Torres MD on 04/07/2023 10:[address] abdomen and pelvis with contrast CT ABDOMEN AND PELVIS WITH CONTRAST CLINICAL INFORMATION: Acute nonlocalized abdominal pain TECHNIQUE: Multidetector spiral CT scan of the abdomen and pelvis was performed following the uneventful administration of nonionic intravenous contrast. Coronal and sagittal reformatted images were obtained and reviewed. Automated exposure control was utilized. Following the intravenous injection of 100 cc of Omnipaque 300, a CT of the abdomen and pelvis and sagittal and coronal reformats obtained. All CT scans at this facility use dose modulation, iterative reconstruction, and/or weight based dosing when appropriate to reduce radiation dose to as low as reasonably achievable. COMPARISON: CT dated 01/29/2021 FINDINGS: Haziness in the dependent lower lungs. Massive dilatation of the stomach and multiple dilated small bowel loops suspicious for obstruction in the mid small bowel, the transition zone is difficult to determine and it could be more than one area of transition. No focal lesions seen in the liver, spleen, adrenal glands, or pancreas. There is a lenticular shaped abnormality along the posterior aspect of the left kidney with peripheral calcification, not significantly changed, consistent with benign etiology, no follow-up required. No free fluid. IMPRESSION: 1. Distended the stomach and multiple small bowel loops suspicious for obstruction in the mid small bowel. Finalized by Huey Shaffer MD on 04/07/2023 9:48 PM Assessment: Amol Taylor is a 68 [address] concerns for SBO Plan: No acute surgical intervention at this time Cont NG LIS SBFT today Pain and nausea control Continue care per primary General surgery will continue to follow Ernesto Serra MD General Surgery Resident, PGY-1 General Surgery B 6a-6p pager #[phone] 6p-6a pager #[phone] Associated attestation - Jesica Almonte MD - 04/10/2023 8:03 PM EST ------ATTENDING NOTE ----- I saw the patient. I participated and was physically present during the critical/gee portions of the service. I was directly involved in the management and treatment plan of the patient. I reviewed the resident's note. Additional Notes/Findings: MDM: moderate Electronically signed by JESICA ALMONTE MD [facility] General Surgeons Robotic Surgery Surgical Critical Care [phone] Images from the original note were not included. [facility] Hospitalists Progress Note 04/10/2023 Patient Name: Amol Taylor : 1955 Hospital Day: 3 SUBJECTIVE Patient was seen and examined at bedside. Patient reported he has not had a BM and has not passed gas, nurse also confirmed this. OBJECTIVE Vital Signs: Temp: [36.3 C (97.3 F)-37.5 C (99.5 F)] 36.9 C (98.5 F) Pulse: [74-90] 74 Resp: [18-27] 23 BP: (121-138)/(67-86) 132/67 SpO2: [93 %-95 %] 93 % O2 Device: None (Room air) O2 Flow Rate (L/min): [0 L/min] 0 L/min Weight: Body mass index is 26.47 kg/m . Admission weight: 74.4 kg (164 lb 0.4 oz) Wt Readings from Last 3 Encounters: 04/09/23 74.4 kg (164 lb 0.4 oz) 04/07/23 78.7 kg (173 lb 8 oz) 02/15/23 81.7 kg (180 lb 3.2 oz) Input/Output: Intake/Output Summary (Last 24 hours) at 04/10/2023 0757 Last data filed at 04/10/2023 0732 Gross per 24 hour Intake 2645.46 ml Output 1100 ml Net 1545.46 ml Physical Exam General: NAD, alert HEENT: NC/AT, PERRLA, EOMI, no scleral icterus Neck: Neck supple. No masses or LAD Cardiovascular: Regular rate and rhythm. Normal S1 and S2. No murmurs Pulmonary/Chest: Clear to auscultation bilaterally. No crackles or wheezing Abdominal: Soft, non-distended, non-tender. Bowel sounds are hypoactive Musculoskeletal: No joint redness, swelling, tenderness, warmth, or limited ROM Neurological: Cranial nerves grossly intact Extremities: No edema or rash Labs/Imaging: Recent Results (from the past 24 hour(s)) Magnesium Collection Time: 04/09/23 6:24 PM Result Value Ref Range Magnesium 2.3 1.8 - 2.6 mg/dL Phosphorus Collection Time: 04/09/23 6:24 PM Result Value Ref Range Phosphorus 3.1 2.4 - 4.9 mg/dL CBC auto differential Collection Time: 04/10/23 4:05 AM Result Value Ref Range White Blood Cells 7.8 4.0 - 11.0 X10E9/L RBC count 3.21 (L) 4.10 - 5.70 X10E12/L Hemoglobin 10.8 (L) 13.0 - 17.0 g/dL Hematocrit 31.2 (L) 39 - 49 % MCV 97 80 - 100 fL MCH 33.6 27 - 34 pg MCHC 34.5 32 - 36 g/dL RDW 13.3 11.5 - 15.0 % Platelets 148 (L) 150 - 450 X10E9/L MPV 7.2 7 - 12 fL % neutrophils 76.3 % % lymphocytes 15.1 % % monocytes 7.7 % % eosinophils 0.5 % % Basophils 0.4 % Neutrophils Absolute (A) 6.0 1.5 - 6.6 X10E9/L Lymphocytes Absolute 1.2 1.0 - 3.5 X10E9/L Monocytes Absolute 0.6 0 - 0.9 X10E9/L Eosinophils Absolute 0.0 0.0 - 0.4 X10E9/L Basophils Absolute 0.0 0.0 - 0.2 X10E9/L Basic Metabolic Panel Collection Time: 04/10/23 4:05 AM Result Value Ref Range Sodium 144 134 - 146 mmol/L Potassium, Bld 4.0 3.5 - 5.0 mmol/L Chloride 110 (H) 98 - 109 mmol/L CO2 24 22 - 32 mmol/L Anion gap 10 5 - 15 mmol/L BUN 17 5 - 27 mg/dL Creatinine 0.68 0.60 - 1.30 mg/dL Glucose 77 65 - 99 mg/dL Calcium 8.5 8.5 - 10.5 mg/dL eGFR (CKD-EPI)non-race dependent >90 >59 ml/min/1.73sq.m Magnesium Collection Time: 04/10/23 4:05 AM Result Value Ref Range Magnesium 1.9 1.8 - 2.6 mg/dL Phosphorus Collection Time: 04/10/23 4:05 AM Result Value Ref Range Phosphorus 2.8 2.4 - 4.9 mg/dL All available laboratory, imaging, and microbiology data has been personally reviewed in detail, and accessible in full per EMR. Medications: cyanocobalamin, 1,000 mcg, intramuscular, Daily heparin (porcine), 5,000 Units, subcutaneous, Q8H DAR iron sucrose, 200 mg, intravenous, Daily lacosamide, 150 mg, intravenous, Q12H latanoprost, 1 drop, both eyes, Nightly levETIRAcetam, 2,000 mg, intravenous, HS levETIRAcetam, 1,500 mg, intravenous, QAM AC [COMPLETED] Consult PICC nurse - Midline, , , Once AND sodium chloride, 20 mL, intravenous, Q12H AND sodium chloride, 20 mL, intravenous, PRN AND sodium chloride, 40 mL, intravenous, PRN sodium chloride, 3 mL, intravenous, Q12H DAR ASSESSMENT SBO status post NG tube placement to low intermittent suction Hypomagnesemia, resolved Hypophosphatemia, resolved History of SBO secondary to previous surgery Chronic normocytic anemia secondary to iron deficiency, anemia of chronic disease, B12 deficiency MRDD History of seizure status post VNS BPH Glaucoma PLAN General surgery on board, pending small-bowel follow-through today, continue NPO, continue NG tube Neurology signed off, continue IV Keppra, IV Vimpat, primidone and lamotrigine on hold due to no IV formulation at this time Continue IV normal saline with potassium chloride 20 mEq per L Continue B12 and IV Venofer Daily labs Replace electrolytes as needed DVT prophylaxis: Heparin Diet: NPO Code status: Full Discharge planning: [facility] Images from the original note were not included. NEUROLOGY CONSULT NOTE DATE OF ADMISSION 04/08/2023 5:30 AM REASON FOR CONSULTATION: Seizure disorder, NPO for SBO, vagal stimulator SUBJECTIVE: Amol Taylor is a 68 y.o. White or male with past medical history of intellectual disability, intractable epilepsy status post VNS, and previous small bowel obstructions for home neurology is consulted regarding seizure medication management due to being NPO. AED Keppra 1500/2000 Lacosamide 150/150 Primidone 250/325 Lamotrigine 400/600 Recent Neurology Visit/Encounter Inpatient consult (02/11/23): Past Brain Imagining CT brain (02/15/2023): * No evidence of acute disease. There is substantial patient motion lowering the sensitivity of the exam. * Prior right cerebral insult with asymmetric atrophy and more localized encephalomalacia posterior parietal distribution. Correlate with relevant history. Past EEG None documented Subjective Patient was seen and examined at the bedside. No acute events overnight. Afebrile and hemodynamically stable. Patient at baseline, no seizures or concern for seizures. RELEVANT PAST MEDICAL HISTORY: Past Medical History: Diagnosis Date Abdominal hernia large but surgical risk Abnormal result of iron profile testing chronic ds Allergic Allergic rhinitis Balance problem falls with several fx// wears helment for protection Bowel obstruction (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) grand mal/ cluster(jerking motions) // has a VNS implant which decreased grand mal seizures/ jerking episod weekly Uninodular goiter Urine incontinence CURRENT MEDICATIONS: Scheduled Meds: cyanocobalamin, 1,000 mcg, intramuscular, Daily heparin (porcine), 5,000 Units, subcutaneous, Q8H DAR iron sucrose, 200 mg, intravenous, Daily lacosamide, 150 mg, intravenous, Q12H latanoprost, 1 drop, both eyes, Nightly levETIRAcetam, 2,000 mg, intravenous, HS levETIRAcetam, 1,500 mg, intravenous, QAM AC [COMPLETED] Consult PICC nurse - Midline, , , Once AND sodium chloride, 20 mL, intravenous, Q12H AND sodium chloride, 20 mL, intravenous, PRN AND sodium chloride, 40 mL, intravenous, PRN sodium chloride, 3 mL, intravenous, Q12H DAR Continuous Infusions: dextrose 5 % in water, 100 mL/hr sodium chloride 0.9 %, 20 mL/hr sodium chloride 0.9 % with KCl 20 mEq/L, 100 mL/hr, Last Rate: 100 mL/hr (04/09/23 6359) PRN Meds:. albuterol dextrose dextrose 5 % in water dextrose 50 % in water (D50W) glucagon (human recombinant) magnesium sulfate magnesium sulfate potassium chloride in water sodium phosphate IV OR sodium phosphate IV - central line OR sod phos di, mono-K phos mono [COMPLETED] Consult PICC nurse - Midline AND sodium chloride AND sodium chloride AND sodium chloride sodium chloride sodium chloride sodium chloride 0.9 % REVIEW OF SYSTEMS: As mentioned in HPI PHYSICAL EXAM: Vital Signs: Blood pressure 121/79, pulse 90, temperature 36.3 C (97.3 F), temperature source Oral, resp. rate 20, weight 74.4 kg (164 lb 0.4 oz), SpO2 96%. Neurologic: Mental status: Alert; oriented to time, place, person and situation. No aphasia. Cranial nerves: II: pupils equal and reactive to light; visual matta full; III, IV, : extraocular movements intact; no ptosis. No nystagmus. V: Deferred at patient request VII: face symmetric with normal eye closure VIII: Gross hearing intact IX, X: Patient not cooperating XI: Shoulder elevation symmetric XII: tongue midline with good movements. Motor: 4-/5 in BLE and 4/5 in BUE. Spasticity in LLE at the ankle and foot. Normal bulk. No fasciculations. No bradykinesia. No tremors. No other abnormal movements. Reflexes: Patient not cooperating and asked to defer Sensory examination: General sensation to light touch intact in all extremities Coordination: Patient not cooperating Gait and Station: Deferred LAB REVIEW: Recent Results (from the past 72 hour(s)) CBC auto differential Collection Time: 04/07/23 8:50 PM Result Value Ref Range White Blood Cells 12.9 (H) 4.0 - 11.0 X10E9/L RBC count 4.21 4.10 - 5.70 X10E12/L Hemoglobin 13.9 13.0 - 17.0 g/dL Hematocrit 41.6 39 - 49 % MCV 99 80 - 100 fL MCH 32.9 27 - 34 pg MCHC 33.3 32 - 36 g/dL RDW 13.6 11.5 - 15.0 % Platelets 227 150 - 450 X10E9/L MPV 7.2 7 - 12 fL % neutrophils 86.2 % % lymphocytes 6.9 % % monocytes 5.9 % % eosinophils 0.7 % % Basophils 0.3 % Neutrophils Absolute (A) 11.1 (H) 1.5 - 6.6 X10E9/L Lymphocytes Absolute 0.9 (L) 1.0 - 3.5 X10E9/L Monocytes Absolute 0.8 0 - 0.9 X10E9/L Eosinophils Absolute 0.1 0.0 - 0.4 X10E9/L Basophils Absolute 0.0 0.0 - 0.2 X10E9/L Comprehensive metabolic panel Collection Time: 04/07/23 8:50 PM Result Value Ref Range Sodium 136 134 - 146 mmol/L Potassium, Bld 4.0 3.5 - 5.0 mmol/L Chloride 100 98 - 109 mmol/L CO2 27 22 - 32 mmol/L Anion gap 9 5 - 15 mmol/L BUN 22 5 - 27 mg/dL Creatinine 1.23 (H) 0.70 - 1.20 mg/dL Glucose 102 (H) 65 - 99 mg/dL Calcium 9.3 8.5 - 10.5 mg/dL Total Protein 8.2 (H) 6.0 - 8.0 g/dL Albumin 4.6 3.2 - 5.3 g/dL Alkaline Phosphatase 145 (H) 39 - 130 U/L AST 19 0 - 41 U/L ALT 22 0 - 40 U/L Total bilirubin 0.6 0.3 - 1.2 mg/dL eGFR (CKD-EPI)non-race dependent 64 >59 ml/min/1.73sq.m Lipase Collection Time: 04/07/23 8:50 PM Result Value Ref Range Lipase 39 17 - 40 U/L CBC auto differential Collection Time: 04/08/23 6:22 AM Result Value Ref Range White Blood Cells 10.3 4.0 - 11.0 X10E9/L RBC count 3.88 (L) 4.10 - 5.70 X10E12/L Hemoglobin 12.9 (L) 13.0 - 17.0 g/dL Hematocrit 37.7 (L) 39 - 49 % MCV 97 80 - 100 fL MCH 33.3 27 - 34 pg MCHC 34.3 32 - 36 g/dL RDW 13.5 11.5 - 15.0 % Platelets 224 150 - 450 X10E9/L MPV 7.3 7 - 12 fL % neutrophils 59.3 % % lymphocytes 30.5 % % monocytes 8.8 % % eosinophils 0.9 % % Basophils 0.5 % Neutrophils Absolute (A) 6.1 1.5 - 6.6 X10E9/L Lymphocytes Absolute 3.1 1.0 - 3.5 X10E9/L Monocytes Absolute 0.9 0 - 0.9 X10E9/L Eosinophils Absolute 0.1 0.0 - 0.4 X10E9/L Basophils Absolute 0.1 0.0 - 0.2 X10E9/L Comprehensive metabolic panel Collection Time: 04/08/23 6:22 AM Result Value Ref Range Sodium 144 134 - 146 mmol/L Potassium, Bld 4.1 3.5 - 5.0 mmol/L Chloride 104 98 - 109 mmol/L CO2 30 22 - 32 mmol/L Anion gap 10 5 - 15 mmol/L BUN 19 5 - 27 mg/dL Creatinine 1.04 0.60 - 1.30 mg/dL Glucose 95 65 - 99 mg/dL Calcium 9.1 8.5 - 10.5 mg/dL Total Protein 7.1 6.0 - 8.0 g/dL Albumin 4.1 3.2 - 5.3 g/dL Alkaline Phosphatase 128 39 - 130 U/L AST 15 0 - 41 U/L ALT 14 0 - 40 U/L Total bilirubin 0.6 0.3 - 1.2 mg/dL eGFR (CKD-EPI)non-race dependent 79 >59 ml/min/1.73sq.m Lactate w/ Reflex Collection Time: 04/08/23 6:22 AM Result Value Ref Range Lactate w/ Reflex 1.2 0.4 - 2.0 mmol/L APTT Collection Time: 04/09/23 4:18 AM Result Value Ref Range aPTT 29 26 - 37 sec Basic Metabolic Panel Collection Time: 04/09/23 4:18 AM Result Value Ref Range Sodium 145 134 - 146 mmol/L Potassium, Bld 4.0 3.5 - 5.0 mmol/L Chloride 110 (H) 98 - 109 mmol/L CO2 25 22 - 32 mmol/L Anion gap 10 5 - 15 mmol/L BUN 19 5 - 27 mg/dL Creatinine 0.78 0.60 - 1.30 mg/dL Glucose 76 65 - 99 mg/dL Calcium 8.4 (L) 8.5 - 10.5 mg/dL eGFR (CKD-EPI)non-race dependent >90 >59 ml/min/1.73sq.m CBC auto differential Collection Time: 04/09/23 4:18 AM Result Value Ref Range White Blood Cells 7.8 4.0 - 11.0 X10E9/L RBC count 3.25 (L) 4.10 - 5.70 X10E12/L Hemoglobin 10.9 (L) 13.0 - 17.0 g/dL Hematocrit 32.0 (L) 39 - 49 % MCV 99 80 - 100 fL MCH 33.4 27 - 34 pg MCHC 33.9 32 - 36 g/dL RDW 13.4 11.5 - 15.0 % Platelets 153 150 - 450 X10E9/L MPV 7.2 7 - 12 fL % neutrophils 74.1 % % lymphocytes 17.9 % % monocytes 6.5 % % eosinophils 1.2 % % Basophils 0.3 % Neutrophils Absolute (A) 5.7 1.5 - 6.6 X10E9/L Lymphocytes Absolute 1.4 1.0 - 3.5 X10E9/L Monocytes Absolute 0.5 0 - 0.9 X10E9/L Eosinophils Absolute 0.1 0.0 - 0.4 X10E9/L Basophils Absolute 0.0 0.0 - 0.2 X10E9/L Magnesium Collection Time: 04/09/23 4:18 AM Result Value Ref Range Magnesium 1.5 (L) 1.8 - 2.6 mg/dL Phosphorus Collection Time: 04/09/23 4:18 AM Result Value Ref Range Phosphorus 2.3 (L) 2.4 - 4.9 mg/dL Vitamin B12 Collection Time: 04/09/23 4:18 AM Result Value Ref Range Vitamin B-12 157 (L) 180 - 914 pg/mL Iron and TIBC Collection Time: 04/09/23 4:18 AM Result Value Ref Range Iron 35 (L) 50 - 212 ug/dL Tibc-calc only do not order 190 (L) 250 - 425 ug/dL Iron Saturation 18 (L) 20 - 50 % SATURATION Ferritin Collection Time: 04/09/23 4:18 AM Result Value Ref Range Ferritin 72 24 - 336 ng/mL Folate Collection Time: 04/09/23 4:18 AM Result Value Ref Range Folate >25.0 >5.8 ng/mL Thyroid profile includes TSH FT4 Collection Time: 04/09/23 4:18 AM Result Value Ref Range TSH 1.03 0.49 - 4.67 uIU/mL T4, free 0.87 0.61 - 1.60 ng/dL IMAGING: X-ray chest 1 view Result Date: 04/07/2023 Narrative: XR CHEST 1 VW HISTORY: Abdominal pain, NG tube placement COMPARISON: Chest x-ray 02/15/2023 FINDINGS: Enteric tube terminates above the level of the GE junction. Diffuse gaseous distention of the stomach and both large and small bowel. Visualized lung bases are clear. IMPRESSION: * Enteric tube terminates above the level of the GE junction, recommend advancing 13 cm. Approved by Resident Angel Givens DO on 04/07/2023 10:28 PM Juan Ng MD have personally reviewed the image(s) and agree with and/or edited the report Finalized by Juan Torres MD on 04/07/2023 10:[address] abdomen and pelvis with contrast Result Date: 04/07/2023 Narrative: CT ABDOMEN AND PELVIS WITH CONTRAST CLINICAL INFORMATION: Acute nonlocalized abdominal pain TECHNIQUE: Multidetector spiral CT scan of the abdomen and pelvis was performed following the uneventful administration of nonionic intravenous contrast. Coronal and sagittal reformatted images were obtained and reviewed. Automated exposure control was utilized. Following the intravenous injection of 100 cc of Omnipaque 300, a CT of the abdomen and pelvis and sagittal and coronal reformats obtained. All CT scans at this facility use dose modulation, iterative reconstruction, and/or weight based dosing when appropriate to reduce radiation dose to as low as reasonably achievable. COMPARISON: CT dated 01/29/2021 FINDINGS: Haziness in the dependent lower lungs. Massive dilatation of the stomach and multiple dilated small bowel loops suspicious for obstruction in the mid small bowel, the transition zone is difficult to determine and it could be more than one area of transition. No focal lesions seen in the liver, spleen, adrenal glands, or pancreas. There is a lenticular shaped abnormality along the posterior aspect of the left kidney with peripheral calcification, not significantly changed, consistent with benign etiology, no follow-up required. No free fluid. IMPRESSION: 1. Distended the stomach and multiple small bowel loops suspicious for obstruction in the mid small bowel. Finalized by Huey Shaffer MD on 04/07/2023 9:48 PM PROBLEM LIST: Patient Active Problem List Diagnosis Seizures ([facility]) Mental retardation Obesity Balance problem Osteoarthritis Left arm weakness Bowel obstruction ([facility]) Eczema Preventative health care BPH (benign prostatic hyperplasia) Osteopenia Seborrheic dermatitis Medicare annual wellness visit, subsequent Vitamin D deficiency Respiratory crackles Hospital discharge follow-up SBO (small bowel obstruction) ([facility]) ASSESSMENT: Amol Taylor is a 68 y.o. White or male with past medical history of intellectual disability, intractable epilepsy status post VNS, and previous small bowel obstructions for home neurology is consulted regarding seizure medication management due to being NPO. IMPRESSION History of epilepsy status post VNS and currently managed with oral anti seizure medications SBO PLAN: IV Keppra 1500/2000 and IV Vimpat 150/150 Hold on primidone and lamotrigine at this time due to no IV formulation, resume as soon as possible If needed will increase Keppra and Vimpat, but not necessary at this time Neurology to sign off, please call with any comments or questions or if there is a concern for seizures Discussed with Dr. Umesh Blackwell MD Neurology Resident, Pgy-3 This patient is being followed by the Neurology Resident service. Contact attending directly during these hours: Sunday to 7:30-8:30 A.M. to Sunday 12-1:00 p.m. Primary Neurology service: [phone] Consult neurology service: [phone] Resident Stroke Service: [phone] If the patient belongs to the Stroke MEMO service please contact the Stroke MEMO directly. Associated attestation - Romana Calvo MD - 04/09/2023 8:43 PM EST Attending Attestation: I saw the patient. I performed the critical/gee portions of the service. I was directly involved in the management and treatment plan of the patient. I reviewed the resident's note. Additional Notes/Findings: Patient with intractable epilepsy an on 4 antiepileptic medications cannot get to of his antiepileptic medications at present because of small while obstruction, for which he is on NG suction and NPO. We will continue to of his antiepileptic medications via IV route and recommend clinical observation for breakthrough seizures at present. Recommend resuming the other 2 antiepileptic medications as soon as possible after planned small bowel surgery. Neurology will follow from a distance. Please call with any questions. Principal Problem: SBO (small bowel obstruction) ([facility]) Chief Complaint: No complains ASSESSMENT AND PLAN: Patient is a 68-year-old male with known Hx/o MRDD, seizure s/p VNS, BPH, Multiple episodes of SBO previous surgery at [facility] recent hospitalization for same at [facility] in 02/2023 managed conservatively brought to the ER with nausea vomiting. 1. SBO. S/p NG tube LIS, appreciate General surgery follow-up, NPO, IV fluids. Aggressively replace electrolytes. 2. Hypomagnesemia, Hypophosphatemia, On replacement protocol. 3. Chronic normocytic anemia likely multifactorial secondary to iron deficiency/anemia of chronic disease/vitamin B12 deficiency rule out blood loss. Drop in hemoglobin appears dilutional with no active bleeding, noted hemoglobin last month was also 9.7. Replace ferrous sulfate, vitamin B12. Monitor for any episodes of active bleeding. 4. Hx/o Seizures. Appreciate Neurology input considering patient is NPO switched to IV Keppra/Vimpat. Holding p.o. primidone/Lamictal as no IV formulary. 5. Hx/o MRDD 6. Hx/o BPH. Holding p.o. medications including Proscar/Flomax. 7. Hx/o Glaucoma. Continue Xalatan eyedrops. 8. GI prophylaxis. Pepcid. 9. DVT prophylaxis. Heparin. Rest of medical issues are stable. CODE STATUS: FULL CODE. Discussed today with sister who is the POA. Dietary Orders (From admission, onward) Start Ordered 04/08/23 0936 Adult diet NPO Diet effective now Question: Diet Type: Answer: NPO 04/08/23 0937 SUBJECTIVE: Patient awake seen earlier this morning did not be in distress denied any complains of nausea, vomiting or abdominal discomfort or pain. NG tube in place with intermittent suction with good output. Denies chest pain, shortness of breath, no fever or chills, discussed with nursing no significant overnight issues. Discussed with POA(Sister) over the phone patient will be full code. Updated POA of medical condition. OBJECTIVE Vitals: 04/09/23 1154 BP: 121/79 Pulse: Resp: Temp: 36.3 C (97.3 F) SpO2: PHYSICAL EXAM: GENERAL: patient awake, does not appear in distress. HEENT: pale, no icterus, NG-tube in place, NECK: supple, CVS: s1,s2 heard no murmurs, rubs or gallops RESPIRATORY: B/l airway entry with no crackles or wheezing ABDOMINAL: soft non tender, non distended with bowel sounds heard, EXTREMITIES: no pedal edema with SKIN: no rashes appreciated Recent Results (from the past 24 hour(s)) APTT Collection Time: 04/09/23 4:18 AM Result Value Ref Range aPTT 29 26 - 37 sec Basic Metabolic Panel Collection Time: 04/09/23 4:18 AM Result Value Ref Range Sodium 145 134 - 146 mmol/L Potassium, Bld 4.0 3.5 - 5.0 mmol/L Chloride 110 (H) 98 - 109 mmol/L CO2 25 22 - 32 mmol/L Anion gap 10 5 - 15 mmol/L BUN 19 5 - 27 mg/dL Creatinine 0.78 0.60 - 1.30 mg/dL Glucose 76 65 - 99 mg/dL Calcium 8.4 (L) 8.5 - 10.5 mg/dL eGFR (CKD-EPI)non-race dependent >90 >59 ml/min/1.73sq.m CBC auto differential Collection Time: 04/09/23 4:18 AM Result Value Ref Range White Blood Cells 7.8 4.0 - 11.0 X10E9/L RBC count 3.25 (L) 4.10 - 5.70 X10E12/L Hemoglobin 10.9 (L) 13.0 - 17.0 g/dL Hematocrit 32.0 (L) 39 - 49 % MCV 99 80 - 100 fL MCH 33.4 27 - 34 pg MCHC 33.9 32 - 36 g/dL RDW 13.4 11.5 - 15.0 % Platelets 153 150 - 450 X10E9/L MPV 7.2 7 - 12 fL % neutrophils 74.1 % % lymphocytes 17.9 % % monocytes 6.5 % % eosinophils 1.2 % % Basophils 0.3 % Neutrophils Absolute (A) 5.7 1.5 - 6.6 X10E9/L Lymphocytes Absolute 1.4 1.0 - 3.5 X10E9/L Monocytes Absolute 0.5 0 - 0.9 X10E9/L Eosinophils Absolute 0.1 0.0 - 0.4 X10E9/L Basophils Absolute 0.0 0.0 - 0.2 X10E9/L Magnesium Collection Time: 04/09/23 4:18 AM Result Value Ref Range Magnesium 1.5 (L) 1.8 - 2.6 mg/dL Phosphorus Collection Time: 04/09/23 4:18 AM Result Value Ref Range Phosphorus 2.3 (L) 2.4 - 4.9 mg/dL Vitamin B12 Collection Time: 04/09/23 4:18 AM Result Value Ref Range Vitamin B-12 157 (L) 180 - 914 pg/mL Iron and TIBC Collection Time: 04/09/23 4:18 AM Result Value Ref Range Iron 35 (L) 50 - 212 ug/dL Tibc-calc only do not order 190 (L) 250 - 425 ug/dL Iron Saturation 18 (L) 20 - 50 % SATURATION Ferritin Collection Time: 04/09/23 4:18 AM Result Value Ref Range Ferritin 72 24 - 336 ng/mL Folate Collection Time: 04/09/23 4:18 AM Result Value Ref Range Folate >25.0 >5.8 ng/mL Thyroid profile includes TSH FT4 Collection Time: 04/09/23 4:18 AM Result Value Ref Range TSH 1.03 0.49 - 4.67 uIU/mL T4, free 0.87 0.61 - 1.60 ng/dL MICROBIOLOGY: Microbiology Results No results found for the last 168 hours. CHEST X-RAY: Enteric tube terminates above the level of the GE junction, recommend advancing [address] ABDOMEN PELVIS WITH CONTRAST: Distended the stomach and multiple small bowel loops suspicious for obstruction in the mid small bowel. SCHEDULED MEDICATIONS: heparin (porcine), 5,000 Units, subcutaneous, Q8H DAR lacosamide, 150 mg, intravenous, Q12H latanoprost, 1 drop, both eyes, Nightly levETIRAcetam, 2,000 mg, intravenous, HS levETIRAcetam, 1,500 mg, intravenous, QAM AC [COMPLETED] Consult PICC nurse - Midline, , , Once AND sodium chloride, 20 mL, intravenous, Q12H AND sodium chloride, 20 mL, intravenous, PRN AND sodium chloride, 40 mL, intravenous, PRN sodium chloride, 3 mL, intravenous, Q12H DAR P.R.N. MEDICATIONS: albuterol dextrose dextrose 5 % in water dextrose 50 % in water (D50W) glucagon (human recombinant) magnesium sulfate magnesium sulfate potassium chloride in water sodium phosphate IV OR sodium phosphate IV - central line OR sod phos di, mono-K phos mono [COMPLETED] Consult PICC nurse - Midline AND sodium chloride AND sodium chloride AND sodium chloride sodium chloride sodium chloride sodium chloride 0.9 % This note was completed using a voice sidewalk repairer system. Every effort was made to ensure accuracy. However, inadvertent computerized sidewalk repairer errors may be present. Images from the original note were not included. General Surgery B Daily Progress Note IP Day: 1 Subjective: No acute overnight events. Stan flatus and BM. Denies nausea and vomiting. HDS, afebrile, WBC 7.8. NG tube with 500 cc Objective: Vitals: 04/09/23 0725 BP: 143/78 Pulse: Resp: Temp: 36.6 C (97.9 F) SpO2: Temp: [36.4 C (97.5 F)-36.9 C (98.4 F)] 36.6 C (97.9 F) Pulse: [74-87] 74 Resp: [16-28] 28 BP: (100-143)/(66-78) 143/78 SpO2: [93 %-97 %] 96 % O2 Device: None (Room air) O2 Flow Rate (L/min): [0 L/min] 0 L/min Allergies Allergen Reactions Penicillins Hives and Shortness Of Breath Clindamycin Rash Intake/Output last 3 shifts: I/O last 3 completed shifts: In: - Out: 1850 [Urine:1350; Emesis/NG output:500] Intake/Output this shift: No intake/output data recorded. Dietary Orders (From admission, onward) Start Ordered 04/08/23935 Adult diet NPO Diet effective now Question: Diet Type: Answer: NPO 04/08/23 0937 Physical Exam General Appearance: Minimal responsiveness due to sleeping, No Acute Distress Neck: Trachea Midline, No jugular venous distension Pulmonary: Unlabored breathing. No expiratory wheeze. Cardiac: Regular rate, normotensive Abdomen: Soft, non-tender, non-distended and no peritonitis. Extremity: No edema Bilateral Upper and lower Extremities Skin: warm and dry without rash Eyes: no scleral icterus Laboratory Data: Lab Results Component Value Date WBC 7.8 04/09/2023 HGB 10.9 (L) 04/09/2023 HCT 32.0 (L) 04/09/2023 MCV 99 04/09/2023 PLT 153 04/09/2023 Lab Results Component Value Date GLU 76 04/09/2023 CALCIUM 8.4 (L) 04/09/2023 K 4.0 04/09/2023 CO2 25 04/09/2023 CL 110 (H) 04/09/2023 BUN 19 04/09/2023 CREATININE 0.78 04/09/2023 No results found for: AMYLASE Lab Results Component Value Date LIPASE 39 04/07/2023 Lab Results Component Value Date ALT 14 04/08/2023 AST 15 04/08/2023 ALKPHOS 128 04/08/2023 No results found for: INR , PROTIME heparin (porcine), 5,000 Units, subcutaneous, Q8H DAR lacosamide, 150 mg, intravenous, Q12H levETIRAcetam, 2,000 mg, intravenous, HS levETIRAcetam, 1,500 mg, intravenous, QAM AC [COMPLETED] Consult PICC nurse - Midline, , , Once AND sodium chloride, 20 mL, intravenous, Q12H AND sodium chloride, 20 mL, intravenous, PRN AND sodium chloride, 40 mL, intravenous, PRN sodium chloride, 3 mL, intravenous, Q12H DAR dextrose dextrose 5 % in water dextrose 50 % in water (D50W) glucagon (human recombinant) magnesium sulfate magnesium sulfate potassium chloride in water [COMPLETED] Consult PICC nurse - Midline AND sodium chloride AND sodium chloride AND sodium chloride sodium chloride sodium chloride sodium chloride 0.9 % Imaging: X-ray chest 1 view XR CHEST 1 VW HISTORY: Abdominal pain, NG tube placement COMPARISON: Chest x-ray 02/15/2023 FINDINGS: Enteric tube terminates above the level of the GE junction. Diffuse gaseous distention of the stomach and both large and small bowel. Visualized lung bases are clear. IMPRESSION: * Enteric tube terminates above the level of the GE junction, recommend advancing 13 cm. Approved by Resident Angel Givens DO on 04/07/2023 10:28 PM Juan Ng MD have personally reviewed the image(s) and agree with and/or edited the report Finalized by Juan Torres MD on 04/07/2023 10:[address] abdomen and pelvis with contrast CT ABDOMEN AND PELVIS WITH CONTRAST CLINICAL INFORMATION: Acute nonlocalized abdominal pain TECHNIQUE: Multidetector spiral CT scan of the abdomen and pelvis was performed following the uneventful administration of nonionic intravenous contrast. Coronal and sagittal reformatted images were obtained and reviewed. Automated exposure control was utilized. Following the intravenous injection of 100 cc of Omnipaque 300, a CT of the abdomen and pelvis and sagittal and coronal reformats obtained. All CT scans at this facility use dose modulation, iterative reconstruction, and/or weight based dosing when appropriate to reduce radiation dose to as low as reasonably achievable. COMPARISON: CT dated 01/29/2021 FINDINGS: Haziness in the dependent lower lungs. Massive dilatation of the stomach and multiple dilated small bowel loops suspicious for obstruction in the mid small bowel, the transition zone is difficult to determine and it could be more than one area of transition. No focal lesions seen in the liver, spleen, adrenal glands, or pancreas. There is a lenticular shaped abnormality along the posterior aspect of the left kidney with peripheral calcification, not significantly changed, consistent with benign etiology, no follow-up required. No free fluid. IMPRESSION: 1. Distended the stomach and multiple small bowel loops suspicious for obstruction in the mid small bowel. Finalized by Huey Shaffer MD on 04/07/2023 9:48 PM Assessment: Amol Taylor is a 68 [address] concerns for SBO Plan: No acute surgical intervention at this time Cont NG LIS Pain and nausea control Tentatively plan on SBFT on 04/10/2023 Continue care per primary General surgery will continue to follow Ernesto Serra MD General Surgery Resident, PGY-1 General Surgery B 6a-6p pager #[phone] 6p-6a pager #[phone] Associated attestation - Hadley Dave MD - 04/09/2023 10:30 PM EST Attending Attestation: I saw the patient. I participated and was physically present during the critical/gee portions of the service. I was directly involved in the management and treatment plan of the patient. I reviewed the resident's note. Additional Notes/Findings: Medical Decision Making: moderate Abdomen is soft NG 500 mL out overnight. No bowel movements yet. Continue to monitor closely. Possible small-bowel follow-through tomorrow or the next day. documented in this encounter [facility] 04-18-2023 Nurse Note Parking Enforcement Specialist spoke with patients NESTORAna Susan, per Dr Cook request, to review case. Speech therapy recommending supervised Level [address] Eastman would like to remove Cortrak and see how patient does with the liquids. Susan is agreeable to this, with an understanding that if it does not go well, the patient may have to have the cortrak put back in. Parking Enforcement Specialist also spoke with Susan regarding speech therapys recommendation of a provale cup. Susan stated she would look them up after our phone call was completed and would likely purchase one today. Dr. Eastman notified of writers conversation with Susan ERICKSON documented in this encounter [facility] 04-13-2023 Consult note Associated Order (s): IP CONSULT TO PALLIATIVE MEDICINE Date of Admission: 04/08/2023 5:30 AM Reason for Consult:DISCUSSION OF GOALS OF CARE Referring Physician: DR LA PCP: CARSON MATAMOROS MD Chief Complaint: VOMITING Principal Problem: SBO (small bowel obstruction) (CMS-HCC) Subjective HPI: Amol Bennett a 68 y.o. White or male admitted with SBO (small bowel obstruction) (CMS-HCC). Palliative medicine was consulted for discussions of goals of care. Patient has a longstanding history of MR DD seizure disorder multiple bowel surgeries with history of recurrent bowel obstructions. Patient was living at home with his parents about 5-6 years back where he had 24 hour care. The caregivers stopped coming so he had to be placed in a alf. He has been in a alf for the last 5 or 6 years. He is in a wheelchair most of the day or bed. He is able to ambulate with 1 assist. He also has significant dysphagia and for this he has been on a modified diet and also thickened liquids which he allegedly hates. He has not been losing weight. He recognize his family. He is a poor historian. He told me he has no pain no shortness a breath and he feels fine. He knows he is in hospital and tells me he has a sister who is his medical power of tool pusher and her name is Susan. Beyond this denies any other concerns and no other history could be obtained from him. I spoke to patient's sister extensively over the phone. She would like for him to remain full code for now. She is contemplating changing code status to DNR CCA however does not want to make any decisions till she is able to speak with the rest of her family and her brother. She would like for him to have an NG tube to feed him and for the speech to repeat testing. She is hoping that he will go back to his baseline of dysphagia diet as she feels her brother loves to eat. As a last resort if all fails she is agreeable to having a PEG tube placed for nutrition. She is patient's legal guardian and has paperwork for power of tool pusher. She has no other concerns at this time. She is sick with influenza and will be in the hospital Sunday. She does not want patient to go to [facility] however would like for him to go to [facility] in [place]. I did relay this message to the care navigation. The nature of above discussion was voluntary in nature. No family was present in the room. I spoke to patient's sister over the phone and more than 20 minutes spent discussing power of tool pusher legal guardianship and code status. [place] Symptom Assessment System Pain Score: 0 Past Medical History: Diagnosis Date Abdominal hernia large but surgical risk Abnormal result of iron profile testing chronic ds Allergic Allergic rhinitis Balance problem falls with several fx// wears helment for protection Bowel obstruction (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) grand mal/ cluster(jerking motions) // has a VNS implant which decreased grand mal seizures/ jerking episod weekly Uninodular goiter Urine incontinence Past Surgical History: Procedure Laterality Date CLAVICLE SURGERY COLONOSCOPY CYSTOCELE REPAIR 2016 EXCHANGE STIMULATOR BATTERY VAGAL NERVE N/A 03/23/2020 Performed by Nicola Mahan MD at [facility] 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 2004 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 REPAIR 7 months old SMALL INTESTINE SURGERY 1985, 1992, 1993 s/p diverticulitis; bowel obstruction x 2 Family History Problem Relation Age of Onset Thyroid cancer Mother Multiple myeloma Mother Arthritis Mother Heart disease Mother Pancreatitis Mother Lung cancer Father Diabetes Sister Hypertension Sister Diabetes Brother Heart disease Brother COPD Brother Social History Socioeconomic History Marital status: Single Spouse name: Not on file Number of children: 0 Years of education: Not on file Highest education level: Not on file Occupational History Occupation: [employer] Comment: [employer] 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 Tobacco Use Smoking status: Never Smokeless tobacco: Never Substance and Sexual Activity Alcohol use: No Drug use: No Sexual activity: Never Other Topics Concern Not on file Social History Narrative Not on file Social Determinants of Health Financial Resource Strain: Not on file Food Insecurity: No Food Insecurity (04/07/2023) Hunger Screening Food Insecurity - Worry: Never True Food Insecurity - Inability: Never True Transportation Needs: Not on file Physical Activity: Not on file Stress: Not on file Social Connections: Not on file Interpersonal Safety: Not on file Housing Instability: Not on file Allergies Allergen Reactions Penicillins Hives and Shortness Of Breath Clindamycin Rash Prior to Admission medications Medication Sig Start Date End Date Taking? Authorizing Provider acetaminophen (TYLENOL EXTRA STRENGTH) 500 mg tablet Take 1 tablet (500 mg total) by mouth every 6 (six) hours as needed for pain. 03/23/20 Yes Violette Caicedo MD albuterol (PROVENTIL HFA;VENTOLIN HFA) 90 mcg/actuation inhaler Inhale 2 puffs every 4 (four) hours as needed for wheezing. 02/15/23 Yes Christine Saini DO calcium carbonate (OS-TAYE) 600 mg (1,500 mg) tablet Take 1 tablet (600 mg total) by mouth 2 (two) times a day with meals. chewable 11/12/18 Yes Kevin Robles, DO finasteride (PROSCAR) 5 mg tablet Take 1 tablet (5 mg total) by mouth daily. 04/03/17 Yes Kevin Robles, DO hydrocortisone (HYTONE) 2.5 % cream Apply 2.5 application topically 2 (two) times a day as needed. 02/18/20 Yes Not In System Ref Prov hydrOXYzine (ATARAX) 25 mg tablet Take 1 tablet (25 mg total) by mouth as needed for itching. Patient taking differently: Take 1 tablet (25 mg total) by mouth every 12 (twelve) hours as needed for itching. 11/12/18 Yes Kevin Robles, DO lamoTRIgine (LaMICtal) 200 mg tablet Take 2 tablets (400 mg total) by mouth every morning. Yes Not In System Ref Prov lamoTRIgine (LaMICtal) 200 mg tablet Take 3 tablets (600 mg total) by mouth nightly. Yes Not In System Ref Prov latanoprost (XALATAN) 0.005 % ophthalmic solution Administer 1 drop to both eyes nightly. Yes Not In System Ref Prov levETIRAcetam (KEPPRA) 1000 mg tablet Take 2 tablets (2,000 mg total) by mouth nightly. Yes Not In System Ref Prov levETIRAcetam (KEPPRA) 750 mg tablet Take 2 tablets (1,500 mg total) by mouth every morning. Yes Not In System Ref Prov LORazepam (ATIVAN) 0.5 mg tablet Take 1 tablet (0.5 mg total) by mouth daily as needed for anxiety or seizures. Patient taking differently: Take 1 tablet (0.5 mg total) by mouth every 8 (eight) hours as needed for anxiety or seizures. 04/02/17 Yes Kevin Robles, DO meclizine (ANTIVERT) 25 mg tablet Take 1 tablet (25 mg total) by mouth daily. Patient taking differently: Take 1 tablet (25 mg total) by mouth 3 (three) times a day as needed for dizziness. 11/12/18 Yes Kevin Robles, DO ondansetron ODT (ZOFRAN-ODT) 4 mg disintegrating tablet Dissolve 1 tablet (4 mg total) on tongue every 12 (twelve) hours as needed for nausea or vomiting. 04/03/17 Yes Kevin Robles, DO oxybutynin XL (DITROPAN-XL) 10 mg 24 hr tablet Take 1 tablet (10 mg total) by mouth in the morning. Yes Not In System Ref Prov pantoprazole (PROTONIX) 40 mg EC tablet Take 1 tablet (40 mg total) by mouth in the morning. Yes Not In System Ref Prov polyethylene glycol (GLYCOLAX) 17 gram packet Take 17 g by mouth in the morning. Yes Not In System Ref Prov primidone (MYSOLINE) 250 mg tablet Take 1 tablet (250 mg total) by mouth in the morning. Yes Not In System Ref Prov primidone (MYSOLINE) 250 mg tablet Take 1.5 tablets (375 mg total) by mouth nightly. Yes Not In System Ref Prov senna (SENOKOT) 8.6 mg tablet Take 1 tablet (8.6 mg total) by mouth in the morning and 1 tablet (8.6 mg total) before bedtime. Yes Not In System Ref Prov tamsulosin (FLOMAX) 0.4 mg capsule,extended release 24hr Take 1 capsule (0.4 mg total) by mouth 2 (two) times a day. 04/03/17 Yes Kevin Robles, DO VIMPAT 150 mg tablet Take 1 tablet (150 mg total) by mouth 2 (two) times a day. 03/07/18 Yes Kevin Robles, DO carbamide peroxide (DEBROX) 6.5 % otic solution Apply 4 ggt to both ear nightly once a month . Cotton ball then in am rinse with body temperature water using syringe in kit 11/12/18 Kevin Robles, DO cholecalciferol, vitamin D3, (cholecalciferol) 1,000 units tablet Take 1 tablet (1,000 Units total) by mouth daily. 09/04/18 Kevin Robles, DO diazePAM (DIASTAT ACUDIAL) 5-7.5-10 mg rectal kit Insert 20 mg into the rectum as needed for seizures (seizure > 15 minutes). Not In System Ref Prov inulin-chromium picolinate 2-100 gram-mcg tablet,chewable Chew 2 tablets and swallow daily. 11/12/18 Kevin Robles, DO loperamide (IMODIUM A-D) 2 mg tablet Take 1 tablet (2 mg total) by mouth 2 (two) times a day as needed for diarrhea. 04/03/17 Kevin Slatero, DO melatonin (CIRCADIN) tablet Take 3 tablets (3 mg total) by mouth nightly as needed for sleep. Not In System Ref Prov white petrolatum-mineral oil (SYSTANE NIGHTTIME) 94-3 % ointment Instill 1 application to eye nightly. To eye lid Area bilat not conjuctivia (for pt chronic itching of ey) 10/17/17 Kevin Bryono, DO Immunization History Administered Date(s) Administered COVID-19, mRNA, LNP-S, PF, 30mcg/0.3mL Dose 03/10/2020, 04/06/2020, 03/16/2021 DT 01/14/1975 Hepatitis B 1955 Influenza, High-dose, Quadrivalent 01/03/2021 Influenza, Im Trivalent Preservative 01/14/2014 Influenza, Injectable, quadrivalent (PF) 12/24/2014, 02/14/2017, 12/20/2017 Influenza, Unspecified 01/14/2014, 12/24/2014, 02/14/2017 Pneumococcal Conjugate 13-Valent 01/14/2010, 02/14/2017 Pneumococcal Polysaccharide 07/09/2018 Tdap 01/14/1975, 03/04/2013 Tuberculin Skin Test; Unspecified Formulation 07/07/2021, 07/13/2021 Zoster Live 2016 Review of Systems Review of systems not obtained due to patient factors. Poor historian, denies any pain, sob, nausea or vomiting Objective BP 138/64 Pulse (!) 44 Temp 36.7 C (98.1 F) (Oral) Resp 25 Ht 167.6 cm (5' 6 ) Wt 78.9 kg (173 lb 15.1 oz) SpO2 97% BMI 28.08 kg/m O2 Device: Nasal cannula Physical Exam: General Appearance: awake, alert, appears comfortable Head: Normocephalic, without obvious abnormality, atraumatic Eyes: conjunctivae/corneas clear. PERRL, EOM's intact. Fundi benign. ENT: ENT exam normal, no neck nodes or sinus tenderness Neck: no adenopathy, no carotid bruit, no JVD, supple, symmetrical, trachea midline, and thyroid not enlarged, symmetric, no tenderness/mass/nodules Lungs: diminished breath sounds bibasilar and bilaterally Heart: regular rate and rhythm, S1, S2 normal, no murmur, click, rub or gallop Abdomen: abnormal findings: hypoactive bowel sounds Extremities: extremities normal, atraumatic, no cyanosis or edema Skin: Skin color, texture, turgor normal. No rashes or lesions Neurologic: Mental status: alertness: alert, orientation: person, place. He knows he is in hospital. He denies any shortness a breath or pain. Also able to tell me his sister's name but beyond that was not able to tell me any other history. Assessment/Plan Small bowel obstruction resolved Dysphagia Debility Recurrent bowel obstructions MRDD Seizures Palliative Care Encounter Discussion of Goals of Care PLAN: Called and spoke to patient's sister Susan who is his medical power of tool pusher. Care discussed. Care discussed with nursing staff Sister would like for him to be re-evaluated for swallow and if possible to be on some kind of dysphagia diet. Prior to this hospital admission patient was on modified diet and thickened liquids. He is not able to swallow anything has a last resort sister is open to having a feeding tube placed. Code status discussed different options presented. Sister is a retired respiratory therapist. She wants him to remain full code for now. She wants to discuss this further with her brother and is contemplating changing code status to DNR CCA however does not want to make any decisions without speaking with the rest of her family. Continue all current treatments. Sister does not want him to go to [facility] but would rather want him to go to [facility]. This message was relayed to care navigation team. Thank you for this consult. Will continue to follow. Donnie Day MD, MPH Associated Order(s): IP CONSULT TO NUTRITION SERVICES; IP CONSULT TO NUTRITION SERVICES NUTRITION ADULT INITIAL EVALUATION NUTRITION ASSESSMENT: Reason to be seen: Consult for tube feeding management Patient History: Admit Diagnosis: Patient Active Problem List Diagnosis Seizures ([facility]) Mental retardation Obesity Balance problem Osteoarthritis Left arm weakness Bowel obstruction ([facility]) Eczema Preventative health care BPH (benign prostatic hyperplasia) Osteopenia Seborrheic dermatitis Medicare annual wellness visit, subsequent Vitamin D deficiency Respiratory crackles Hospital discharge follow-up SBO (small bowel obstruction) ([facility] Past Medical History: Past Medical History: Diagnosis Date Abdominal hernia large but surgical risk Abnormal result of iron profile testing chronic ds Allergic Allergic rhinitis Balance problem falls with several fx// wears helment for protection Bowel obstruction ([facility]) 2016 and Oct BPH (benign prostatic hyperplasia) sees urology 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, lt vision loss with some recovery, seizures Obesity with diet pt lost some wt Osteoarthritis Osteopenia dexa 2018 hip -1.7 Pneumonia Seborrheic dermatitis Seizures ([facility]) grand mal/ cluster(jerking motions) // has a VNS implant which decreased grand mal seizures/ jerking episod weekly Uninodular goiter Urine incontinence Past Surgical History: Past Surgical History: Procedure Laterality Date CLAVICLE SURGERY COLONOSCOPY CYSTOCELE REPAIR 2015 EXCHANGE STIMULATOR BATTERY VAGAL NERVE N/A 03/23/2020 Performed by Nicola Mahan MD at [facility] 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 2004 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 REPAIR 7 months old SMALL INTESTINE SURGERY 1985, 1992, 1993 s/p diverticulitis; bowel obstruction x 2 Social/ Cognitive/ Economic: oriented to person, pt with MRDD per MD note Brief Clinical Summary: 68 yo with PMH: intellectual disability, seizure disorder, vagus nerve stimulator, small-bowel obstruction, and BPH. Pt with complicated abdominal surgical history with multiple small bowel resections and SBO's. Pt was brought to ER with complaints of vomiting and was transferred to [facility] ER. CT scan showed small bowel obstruction. Biochemical Data, Medical Tests, and Procedures: 04/07 CTAP - distended stomach and multiple small bowel loops suspicious for obstruction 04/12 VFSS - dysphagia with strict NPO status Labs: Results from last 3 days Lab Units 04/13/23 0608 04/12/23 0634 04/11/23 0445 SODIUM mmol/L 144 145 145 POTASSIUM mmol/L 3.6 3.9 4.0 CHLORIDE mmol/L 110* 112* 112* CO2 mmol/L 27 23 24 BUN mg/dL 10 17 14 CREATININE mg/dL 0.60 0.71 0.68 CALCIUM mg/dL 8.0* 8.5 8.5 Results from last 7 days Lab Units 04/13/23 0608 04/12/23 0634 04/11/23 0445 04/10/23 0405 04/09/23 0418 04/08/23 0622 04/07/23 2050 GLUCOSE mg/dL 95 81 80 77 76 95 102* Results from last 3 days Lab Units 04/13/23 1145 04/13/23 0608 04/12/23 0634 04/11/23 0445 WBC X10E9/L -- 4.3 4.9 5.6 HEMOGLOBIN g/dL -- 10.6* 10.7* 10.1* HEMATOCRIT % -- 30.9* 31.1* 30.5* PLATELETS X10E9/L 149* 136* 132* 118* MCV fL -- 97 98 99 Results from last 3 days Lab Units 04/13/23 0608 04/12/23 1825 04/12/23 0634 MAGNESIUM mg/dL 1.6* 1.8 1.6* No data from last 3 days. No data from last 3 days. No results found for: HGBA1C Lab Results Component Value Date IRON 35 (L) 04/09/2023 TIBC 190 (L) 04/09/2023 FERRITIN 72 04/09/2023 Lab Results Component Value Date IRONSAT 18 (L) 04/09/2023 No results found for: CHOL No results found for: CHDL No results found for: HDL No results found for: LDLCALC No results found for: TRIG No results found for: VERYLOWLIP Lab Results Component Value Date GNMERREH24 157 (L) 04/09/2023 Lab Results Component Value Date FOLATE >25.0 04/09/2023 No results found for: VITD25 Comments (labs): Hypomagnesemia, note hypophosphatemia upon admission, B12 deficiency Medications/ Parenteral: Keppra, D5% @ 75 ml/hr, Mg Sulfate prn Medications Prior to Admission Medication Sig Dispense Refill Last Dose acetaminophen (TYLENOL EXTRA STRENGTH) 500 mg tablet Take 1 tablet (500 mg total) by mouth every 6 (six) hours as needed for pain. 30 tablet 0 albuterol (PROVENTIL HFA;VENTOLIN HFA) 90 mcg/actuation inhaler Inhale 2 puffs every 4 (four) hours as needed for wheezing. 18 g 0 calcium carbonate (OS-TAYE) 600 mg (1,500 mg) tablet Take 1 tablet (600 mg total) by mouth 2 (two) times a day with meals. chewable 90 tablet 1 04/07/2023 finasteride (PROSCAR) 5 mg tablet Take 1 tablet (5 mg total) by mouth daily. 90 tablet 1 04/07/2023 hydrocortisone (HYTONE) 2.5 % cream Apply 2.5 application topically 2 (two) times a day as needed. Past Week hydrOXYzine (ATARAX) 25 mg tablet Take 1 tablet (25 mg total) by mouth as needed for itching. (Patient taking differently: Take 1 tablet (25 mg total) by mouth every 12 (twelve) hours as needed for itching.) 30 tablet 0 lamoTRIgine (LaMICtal) 200 mg tablet Take 2 tablets (400 mg total) by mouth every morning. 04/07/2023 lamoTRIgine (LaMICtal) 200 mg tablet Take 3 tablets (600 mg total) by mouth nightly. 04/07/2023 latanoprost (XALATAN) 0.005 % ophthalmic solution Administer 1 drop to both eyes nightly. 04/07/2023 levETIRAcetam (KEPPRA) 1000 mg tablet Take 2 tablets (2,000 mg total) by mouth nightly. 04/07/2023 levETIRAcetam (KEPPRA) 750 mg tablet Take 2 tablets (1,500 mg total) by mouth every morning. 04/07/2023 LORazepam (ATIVAN) 0.5 mg tablet Take 1 tablet (0.5 mg total) by mouth daily as needed for anxiety or seizures. (Patient taking differently: Take 1 tablet (0.5 mg total) by mouth every 8 (eight) hours as needed for anxiety or seizures.) 30 tablet 0 meclizine (ANTIVERT) 25 mg tablet Take 1 tablet (25 mg total) by mouth daily. (Patient taking differently: Take 1 tablet (25 mg total) by mouth 3 (three) times a day as needed for dizziness.) 30 tablet 0 ondansetron ODT (ZOFRAN-ODT) 4 mg disintegrating tablet Dissolve 1 tablet (4 mg total) on tongue every 12 (twelve) hours as needed for nausea or vomiting. 60 tablet 1 oxybutynin XL (DITROPAN-XL) 10 mg 24 hr tablet Take 1 tablet (10 mg total) by mouth in the morning. 04/07/2023 pantoprazole (PROTONIX) 40 mg EC tablet Take 1 tablet (40 mg total) by mouth in the morning. 04/07/2023 polyethylene glycol (GLYCOLAX) 17 gram packet Take 17 g by mouth in the morning. 04/07/2023 primidone (MYSOLINE) 250 mg tablet Take 1 tablet (250 mg total) by mouth in the morning. 04/07/2023 primidone (MYSOLINE) 250 mg tablet Take 1.5 tablets (375 mg total) by mouth nightly. 04/07/2023 senna (SENOKOT) 8.6 mg tablet Take 1 tablet (8.6 mg total) by mouth in the morning and 1 tablet (8.6 mg total) before bedtime. 04/07/2023 tamsulosin (FLOMAX) 0.4 mg capsule,extended release 24hr Take 1 capsule (0.4 mg total) by mouth 2 (two) times a day. 180 capsule 1 04/07/2023 VIMPAT 150 mg tablet Take 1 tablet (150 mg total) by mouth 2 (two) times a day. 60 each 0 04/07/2023 carbamide peroxide (DEBROX) 6.5 % otic solution Apply 4 ggt to both ear nightly once a month . Cotton ball then in am rinse with body temperature water using syringe in kit 15 mL 0 cholecalciferol, vitamin D3, (cholecalciferol) 1,000 units tablet Take 1 tablet (1,000 Units total) by mouth daily. 90 tablet 1 diazePAM (DIASTAT ACUDIAL) 5-7.5-10 mg rectal kit Insert 20 mg into the rectum as needed for seizures (seizure > 15 minutes). inulin-chromium picolinate 2-100 gram-mcg tablet,chewable Chew 2 tablets and swallow daily. 180 tablet 1 loperamide (IMODIUM A-D) 2 mg tablet Take 1 tablet (2 mg total) by mouth 2 (two) times a day as needed for diarrhea. 30 tablet 1 melatonin (CIRCADIN) tablet Take 3 tablets (3 mg total) by mouth nightly as needed for sleep. white petrolatum-mineral oil (SYSTANE NIGHTTIME) 94-3 % ointment Instill 1 application to eye nightly. To eye lid Area bilat not conjuctivia (for pt chronic itching of ey) 1 Tube 2 Current Facility-Administered Medications Medication Dose Route Frequency Provider Last Rate Last Admin albuterol (PROVENTIL,VENTOLIN) nebulizer solution 2.5 mg 2.5 mg nebulization Q6H PRN Houston Perkins MD 2.5 mg at 04/10/23 1214 barium sulfate (E-Z-DISK) tablet 700 mg 700 mg oral Once in imaging Gonzales La MD barium sulfate (E-Z-HD) 98 % suspension 340 g 340 g oral Once in imaging Gonzales La MD barium sulfate (E-Z-PAQUE) 96 % (w/w) powder 176 g 176 g oral Once in imaging Gonzales La MD barium sulfate (E-Z-PASTE) 60 % oral cream 454 g 454 g oral Once in imaging Gonzales La MD barium sulfate (LIQUID E-Z PAQUE) 60 % (w/v) suspension 355 mL 355 mL oral Once in imaging Gonzales La MD barium sulfate (LIQUID POLIBAR PLUS) 105 % (w/v), 58 % (w/w) suspension 300 mL 300 mL oral Once in imaging Gonzales La MD barium sulfate (VARIBAR HONEY) 40 % (w/v) 29% (w/w) suspension 250 mL 250 mL oral Once in imaging Gonzales La MD dextrose (GLUTOSE) 40 % gel 15 g 15 g oral PRN Nazia Broussard MD dextrose 5 % (D5W) infusion 100 mL/hr intravenous Continuous PRN Nazia Broussard MD dextrose 5 % and sodium chloride 0.45 % infusion 75 mL/hr intravenous Continuous Gonzales La MD 75 mL/hr at 04/13/23 0842 Rate Verify at 04/13/23 0842 dextrose 50 % in water (D50W) 50% solution 25 mL 25 mL intravenous PRN Nazia Broussard MD glucagon HCL injection 1 mg 1 mg intramuscular PRN Nazia Broussard MD heparin (porcine) injection 5,000 Units 5,000 Units subcutaneous Q8H DAR Nazia Broussard MD 5,000 Units at 04/13/23 0600 lacosamide (VIMPAT) 150 mg in sodium chloride 0.9 % 50 mL IVPB 150 mg intravenous Q12H Daniel Blackwell MD Stopped at 04/13/23 0246 latanoprost (XALATAN) 0.005 % ophthalmic solution 1 drop 1 drop both eyes Nightly Houston Perkins MD 1 drop at 04/12/23 2158 levETIRAcetam (KEPPRA) 2,000 mg in sodium chloride 0.9 % 120 mL IVPB 2,000 mg intravenous HS Nazia Broussard MD Stopped at 04/12/23 2218 levETIRAcetam (KEPPRA) IVPB 1500 mg/100 mL in iso-osmotic sodium chloride (15 mg/mL premix) 1,500 mg intravenous QAM AC Nazia Broussard MD Stopped at 04/13/23 0625 magnesium sulfate IVPB 2000 mg/50 mL in iso-osmotic water (40 mg/mL premix) 2,000 mg intravenous PRN Nazia Broussard MD magnesium sulfate IVPB 4000 mg/100 mL in iso-osmotic water (40 mg/mL premix) 4,000 mg intravenous PRJhonatan Broussard MD 25 mL/hr at 04/13/23 1203 4,000 mg at 04/13/23 1203 potassium chloride IVPB 10 mEq/100 mL in water (0.1 mEq/mL premix) 10 mEq intravenous PRJhonatan Broussard MD 100 mL/hr at 04/13/23 1202 10 mEq at 04/13/23 1202 sodium phosphate 20 mmol in sodium chloride 0.9 % 250 mL IVPB 20 mmol intravenous PRN Houston Perkins MD Or sodium phosphate 20 mmol in sodium chloride 0.9 % 100 mL IVPB 20 mmol intravenous PRJhonatan Perkins MD Stopped at 04/09/23 1409 Or sod phos di, mono-K phos mono (K-PHOS NEUTRAL) 250 mg tablet 2 tablet 2 tablet oral PRN Houston Perkins MD sodium chloride 0.9 % flush 20 mL 20 mL intravenous Q12H Nazia Broussard MD 20 mL at 04/12/23 1300 And sodium chloride 0.9 % flush 20 mL 20 mL intravenous PRN Nazia Broussard MD And sodium chloride 0.9 % flush 40 mL 40 mL intravenous PRN Nazia Broussard MD sodium chloride 0.9 % flush 3 mL 3 mL intravenous PRN Nazia Broussard MD sodium chloride 0.9 % flush 3 mL 3 mL intravenous Q12H DAR Nazia Broussard MD 3 mL at 04/13/23 0853 sodium chloride 0.9 % flush bag 25 mL intravenous PRN Nazia Broussard MD sodium chloride 0.9 % infusion 20 mL/hr intravenous Continuous PRN Nazia Broussard MD 20 mL/hr at 04/12/23 1511 Rate Verify at 04/12/23 1511 terazosin (HYTRIN) capsule 1 mg 1 mg nasogastric Daily Gonzales La MD Nutrition Focused Physical Findings Note patient denied ongoing nausea, vomiting, diarrhea, and constipation Last BM 04/12, +Cortrak, +PICC Per RN, bowel obstruction resolved Extremities, Muscles, and Bones A. Muscle Loss WNL B. Loss of Subcutaneous Fat WNL Skin (per nursing flow sheets): Skin Color: [place]; Pale (04/13/23 1000) Skin Temp: Dry; Warm (04/13/23 1000) Skin Integrity: Intact (04/08/23 06) Skin Turgor: Non-tenting (04/08/23626) Wound (per nursing flow sheets): Gastrointestinal (per nursing flow sheets): Abdomen Assessment: Soft; Nondistended (04/13/23 1000) Last BM Date: 04/12/23 (04/12/232202) Passing Flatus: Yes (04/13/23 0745) RUQ Bowel Sounds: Active (04/13/23 0745) LUQ Bowel Sounds: Active (04/13/23744) RLQ Bowel Sounds: Active (04/13/23744) LLQ Bowel Sounds: Active (04/13/23744) GI Symptoms: None (04/13/23744) Edema (per nursing flow sheets): RLE Edema: +1 (04/12/23819) LLE Edema: +1 (04/12/23819) Intake/ Output Last 24 hrs: Intake/Output Summary (Last 24 hours) at 04/13/2023 1327 Last data filed at 04/13/2023 0932 Gross per 24 hour Intake 2167.13 ml Output 1425 ml Net 742.13 ml Food/Nutrition Related History: Diet History: Per RN, patient's sister stated patient previously had no difficulties eating. However, extensive diet history unable to be obtained. Tried contacting facility patient came from, no answer. Allergies: Allergies Allergen Reactions Penicillins Hives and Shortness Of Breath Clindamycin Rash Diet/ Nutrition Order Review: Dietary Orders (From admission, onward) Start Ordered 04/12/23 0958 Adult diet NPO Diet effective now Question: Diet Type: Answer: NPO 04/12/23 0957 Diet Intakes: Strict NPO status due to dysphagia TF/TPN Intakes: 04/13 consult for tube feeding management Anthropometrics: Ht Readings from Last 1 Encounters: 04/09/23 167.6 cm (5' 6 ) Wt Readings from Last 20 Encounters: 04/13/23 78.9 kg (173 lb 15.1 oz) 04/07/23 78.7 kg (173 lb 8 oz) 02/15/23 81.7 kg (180 lb 3.2 oz) 01/29/21 99.6 kg (219 lb 8 oz) 05/14/20 88.3 kg (194 lb 11.2 oz) 05/07/20 84.4 kg (186 lb) 03/18/20 84.5 kg (186 lb 3.2 oz) 12/12/18 84.4 kg (186 lb) 12/04/18 83.9 kg (185 lb) 11/12/18 88.9 kg (196 lb) 07/25/18 86.2 kg (190 lb) 07/09/18 93 kg (205 lb) 12/20/17 92.2 kg (203 lb 3.2 oz) 12/20/17 90.7 kg (200 lb) 10/17/17 90.7 kg (200 lb) 06/21/17 90.7 kg (200 lb) 04/02/17 90.7 kg (200 lb) 02/21/17 90.7 kg (200 lb) 02/14/17 90.7 kg (200 lb) Last 3 Weight Readings 04/11/23 0500 04/12/23 0332 04/13/23 0356 Weight: 79.2 kg (174 lb 9.7 oz) 79.4 kg (175 lb 0.7 oz) 78.9 kg (173 lb 15.1 oz) Admit Weight: 74.4 kg (Bed Scale, 04/09) Usual Body Weight: See weight trends in chart above [place] Body Weight: 64.5 kg Percent [place] Body Weight: 115% Weight Changes: 2.8 kg (3.4%) wt loss in < 2 months, not clinically significant Body Mass Index: Body mass index is 28.08 kg/m . BMI Category: Pre-obese (25.00- 29.99) Comparative Standards: Estimated Energy Needs: 1751-0203 kcals daily. Method and weight used: 25-30 kcal/kg IBW Estimated Protein Needs: 78-130 grams daily. Method and weight used: 1.2-2g protein/kg IBW Estimated Fluid Needs: 0634-6205 ml daily. Method weight used: 1 ml/kcal Comments: Floor needs based on ideal body weight Malnutrition Status: Malnutrition Present: No NUTRITION DIAGNOSIS: Intake Diagnosis: Inadequate oral intake (NI 2.1) related to difficulty swallowing as evidenced by strict NPO status and need for tube feeding. NUTRITION INTERVENTIONS: Enteral Nutrition: Will start tube feeding of Osmolite 1.2 at 20 ml/hr and increase by 10 ml Q 8 hrs until goal of 65 ml/hr is reached. Goal TF regimen will provide: 1560 ml formula, 1875 kcals, 87 g protein, and 1279 ml free water. Will order 100 ml free water flush 4 x day to meet fluid needs Coordination of Care: Spoke with RN GOAL(S): Meet estimated calorie and protein needs. NUTRITION MONITORING AND EVALUATION: TF tolerance, weight trend, labs, POC and overall status. Dinora Reddy, RD, LD Clinical Dietitian [facility] [phone] Associated Order(s): IP CONSULT TO CARDIOLOGY Images from the original note were not included. [facility] [address] [place] [address] HISTORY & PHYSICAL / CONSULT NOTE Amol Taylor PCP: CARSON MATAMOROS MD Date of Admission: 04/08/2023 Date of Consultation: 04/11/2023 12:00 PM Consult for bradycardia SUBJECTIVE History of Present Illness: Amol Taylor is a 68 y.o. male with past medical history of seizure disorder, vagus nerve stimulator, small-bowel obstruction, and MR DD presented to the ER with nausea and vomiting and was found to have small-bowel obstruction. He had NG tube placed which was since removed. Cardiology is being consulted for bradycardia on telemetry with heart rates dipping down into the 30s. Patient lives in a alf. He is unable to provide much history. He is alert to self. He denies any chest pain or palpitations. Does not think he has had issues with passing out. Discussed with nurse and he does not have family that has come to see him since he has been here. EKG shows sinus bradycardia. Telemetry review shows sinus rhythm. Magnesium is 1.6. Previous Medical History: Past Medical History: Diagnosis Date Abdominal hernia large but surgical risk Abnormal result of iron profile testing chronic ds Allergic Allergic rhinitis Balance problem falls with several fx// wears helment for protection Bowel obstruction ([facility] 2016 and Oct BPH (benign prostatic hyperplasia) sees urology 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) grand mal/ cluster(jerking motions) // has a VNS implant which decreased grand mal seizures/ jerking episod weekly Uninodular goiter Urine incontinence Previous Surgical History: Past Surgical History: Procedure Laterality Date CLAVICLE SURGERY COLONOSCOPY CYSTOCELE REPAIR 2016 EXCHANGE STIMULATOR BATTERY VAGAL NERVE N/A 03/23/2020 Performed by Nicola Mahan MD at [facility] 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 2004 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 REPAIR 7 months old SMALL INTESTINE SURGERY 1985, 1992, 1993 s/p diverticulitis; bowel obstruction x 2 Allergies: Allergies Allergen Reactions Penicillins Hives and Shortness Of Breath Clindamycin [facility] Meds: Current Facility-Administered Medications Medication Dose Route Frequency Provider Last Rate Last Admin albuterol (PROVENTIL,VENTOLIN) nebulizer solution 2.5 mg 2.5 mg nebulization Q6H PRN Houston Perkins MD 2.5 mg at 04/10/23 1214 cyanocobalamin (VITAMIN B-12) injection 1,000 mcg 1,000 mcg intramuscular Daily Houston Perkins MD 1,000 mcg at 04/11/23 0924 dextrose (GLUTOSE) 40 % gel 15 g 15 g oral PRN Nazia Broussard MD dextrose 5 % (D5W) infusion 100 mL/hr intravenous Continuous PRN Nazia Broussard MD dextrose 50 % in water (D50W) 50% solution 25 mL 25 mL intravenous PRN Nazia Broussard MD glucagon HCL injection 1 mg 1 mg intramuscular PRN Nazia Broussard MD heparin (porcine) injection 5,000 Units 5,000 Units subcutaneous Q8H DAR Nazia Broussard MD 5,000 Units at 04/11/23 0535 iron sucrose (VENOFER) IVPB 200 mg/110 mL in sodium chloride 0.9% (CMPD premix) 200 mg intravenous Daily Houston Perkins MD 440 mL/hr at 04/11/23 0952 200 mg at 04/11/23 0952 lacosamide (VIMPAT) 150 mg in sodium chloride 0.9 % 50 mL IVPB 150 mg intravenous Q12H Daniel Blackwell MD Stopped at 04/11/23 0225 latanoprost (XALATAN) 0.005 % ophthalmic solution 1 drop 1 drop both eyes Nightly Houston Perkins MD 1 drop at 04/10/232114 levETIRAcetam (KEPPRA) 2,000 mg in sodium chloride 0.9 % 120 mL IVPB 2,000 mg intravenous HS Nazia Broussard MD Stopped at 04/10/23 2130 levETIRAcetam (KEPPRA) IVPB 1500 mg/100 mL in iso-osmotic sodium chloride (15 mg/mL premix) 1,500 mg intravenous QAM AC Nazia Broussard MD Stopped at 04/11/23 0549 magnesium sulfate IVPB 2000 mg/50 mL in iso-osmotic water (40 mg/mL premix) 2,000 mg intravenous PRN Nazia Broussard MD magnesium sulfate IVPB 4000 mg/100 mL in iso-osmotic water (40 mg/mL premix) 4,000 mg intravenous PRN Nazia Broussard MD 25 mL/hr at 04/11/23 0900 4,000 mg at 04/11/23 0900 potassium chloride IVPB 10 mEq/100 mL in water (0.1 mEq/mL premix) 10 mEq intravenous PRN Nazia Broussard MD sodium phosphate 20 mmol in sodium chloride 0.9 % 250 mL IVPB 20 mmol intravenous PRN Houston Perkins MD Or sodium phosphate 20 mmol in sodium chloride 0.9 % 100 mL IVPB 20 mmol intravenous PRN Houston Perkins MD Stopped at 04/09/23 1410 Or sod phos di, mono-K phos mono (K-PHOS NEUTRAL) 250 mg tablet 2 tablet 2 tablet oral PRN Houston Perkins MD sodium chloride 0.9 % flush 20 mL 20 mL intravenous Q12H Nazia Broussard MD 20 mL at 04/11/23 0100 And sodium chloride 0.9 % flush 20 mL 20 mL intravenous PRN Nazia Broussard MD And sodium chloride 0.9 % flush 40 mL 40 mL intravenous PRN Nazia Broussard MD sodium chloride 0.9 % flush 3 mL 3 mL intravenous PRN Nazia Broussard MD sodium chloride 0.9 % flush 3 mL 3 mL intravenous Q12H DAR Nazia Broussard MD 3 mL at 04/10/23 2100 sodium chloride 0.9 % flush bag 25 mL intravenous PRN Nazia Broussard MD sodium chloride 0.9 % infusion 20 mL/hr intravenous Continuous PRN Nazia Broussard MD Home Meds: Prior to Admission medications Medication Sig Start Date End Date Taking? Authorizing Provider acetaminophen (TYLENOL EXTRA STRENGTH) 500 mg tablet Take 1 tablet (500 mg total) by mouth every 6 (six) hours as needed for pain. 03/23/20 Yes Violette Caicedo MD albuterol (PROVENTIL HFA;VENTOLIN HFA) 90 mcg/actuation inhaler Inhale 2 puffs every 4 (four) hours as needed for wheezing. 02/15/23 Yes Christine Saini, DO calcium carbonate (OS-TAYE) 600 mg (1,500 mg) tablet Take 1 tablet (600 mg total) by mouth 2 (two) times a day with meals. chewable 11/12/18 Yes Kevin Robles, DO finasteride (PROSCAR) 5 mg tablet Take 1 tablet (5 mg total) by mouth daily. 04/03/17 Yes Kevin Robles DO hydrocortisone (HYTONE) 2.5 % cream Apply 2.5 application topically 2 (two) times a day as needed. 02/18/20 Yes Not In System Ref Prov hydrOXYzine (ATARAX) 25 mg tablet Take 1 tablet (25 mg total) by mouth as needed for itching. Patient taking differently: Take 1 tablet (25 mg total) by mouth every 12 (twelve) hours as needed for itching. 11/12/18 Yes Kevin Robles, DO lamoTRIgine (LaMICtal) 200 mg tablet Take 2 tablets (400 mg total) by mouth every morning. Yes Not In System Ref Prov lamoTRIgine (LaMICtal) 200 mg tablet Take 3 tablets (600 mg total) by mouth nightly. Yes Not In System Ref Prov latanoprost (XALATAN) 0.005 % ophthalmic solution Administer 1 drop to both eyes nightly. Yes Not In System Ref Prov levETIRAcetam (KEPPRA) 1000 mg tablet Take 2 tablets (2,000 mg total) by mouth nightly. Yes Not In System Ref Prov levETIRAcetam (KEPPRA) 750 mg tablet Take 2 tablets (1,500 mg total) by mouth every morning. Yes Not In System Ref Prov LORazepam (ATIVAN) 0.5 mg tablet Take 1 tablet (0.5 mg total) by mouth daily as needed for anxiety or seizures. Patient taking differently: Take 1 tablet (0.5 mg total) by mouth every 8 (eight) hours as needed for anxiety or seizures. 04/02/17 Yes Kevin Robles, DO meclizine (ANTIVERT) 25 mg tablet Take 1 tablet (25 mg total) by mouth daily. Patient taking differently: Take 1 tablet (25 mg total) by mouth 3 (three) times a day as needed for dizziness. 11/12/18 Yes Kevin Robles, DO ondansetron ODT (ZOFRAN-ODT) 4 mg disintegrating tablet Dissolve 1 tablet (4 mg total) on tongue every 12 (twelve) hours as needed for nausea or vomiting. 04/03/17 Yes Kevin Robles DO oxybutynin XL (DITROPAN-XL) 10 mg 24 hr tablet Take 1 tablet (10 mg total) by mouth in the morning. Yes Not In System Ref Prov pantoprazole (PROTONIX) 40 mg EC tablet Take 1 tablet (40 mg total) by mouth in the morning. Yes Not In System Ref Prov polyethylene glycol (GLYCOLAX) 17 gram packet Take 17 g by mouth in the morning. Yes Not In System Ref Prov primidone (MYSOLINE) 250 mg tablet Take 1 tablet (250 mg total) by mouth in the morning. Yes Not In System Ref Prov primidone (MYSOLINE) 250 mg tablet Take 1.5 tablets (375 mg total) by mouth nightly. Yes Not In System Ref Prov senna (SENOKOT) 8.6 mg tablet Take 1 tablet (8.6 mg total) by mouth in the morning and 1 tablet (8.6 mg total) before bedtime. Yes Not In System Ref Prov tamsulosin (FLOMAX) 0.4 mg capsule,extended release 24hr Take 1 capsule (0.4 mg total) by mouth 2 (two) times a day. 04/03/17 Yes Kevin Robles DO VIMPAT 150 mg tablet Take 1 tablet (150 mg total) by mouth 2 (two) times a day. 03/07/18 Yes Kevinida Robles, DO carbamide peroxide (DEBROX) 6.5 % otic solution Apply 4 ggt to both ear nightly once a month . Cotton ball then in am rinse with body temperature water using syringe in kit 11/12/18 Kevin Ilo, DO cholecalciferol, vitamin D3, (cholecalciferol) 1,000 units tablet Take 1 tablet (1,000 Units total) by mouth daily. 09/04/18 Kevin Robles, DO diazePAM (DIASTAT ACUDIAL) 5-7.5-10 mg rectal kit Insert 20 mg into the rectum as needed for seizures (seizure > 15 minutes). Not In System Ref Prov inulin-chromium picolinate 2-100 gram-mcg tablet,chewable Chew 2 tablets and swallow daily. 11/12/18 Kevin Robles, DO loperamide (IMODIUM A-D) 2 mg tablet Take 1 tablet (2 mg total) by mouth 2 (two) times a day as needed for diarrhea. 04/03/17 Kevin Robles, DO melatonin (CIRCADIN) tablet Take 3 tablets (3 mg total) by mouth nightly as needed for sleep. Not In System Ref Prov white petrolatum-mineral oil (SYSTANE NIGHTTIME) 94-3 % ointment Instill 1 application to eye nightly. To eye lid Area bilat not conjuctivia (for pt chronic itching of ey) 10/17/17 Kevin Robles DO Social History: TOBACCO: reports that he has never smoked. He has never used smokeless tobacco. ETOH: reports no history of alcohol use. DRUGS: reports no history of drug use. OCCUPATION: Family History: Family History Problem Relation Age of Onset Thyroid cancer Mother Multiple myeloma Mother Arthritis Mother Heart disease Mother Pancreatitis Mother Lung cancer Father Diabetes Sister Hypertension Sister Diabetes Brother Heart disease Brother COPD Brother Review of Systems: Constitutional: there has been no unanticipated weight loss, no change in energy level, sleep pattern, or activity level. Eyes: No visual changes or diplopia, no scleral icterus. ENT: No Headaches, hearing loss or vertigo, no mouth sores or sore throat. Cardiovascular: No chest pain, dyspnea on exertion, palpitations or loss of consciousness, no cough, hemoptysis, pleuritic pain, or phlebitis. Respiratory: No cough or wheezing, no sputum production, no hematemesis. Gastrointestinal: No abdominal pain, appetite loss, blood in stools, no change in bowel or bladder habits. Genitourinary: No dysuria, trouble voiding, or hematuria Musculoskeletal: No gait disturbance, weakness or joint complaints Integumentary: No rash or pruritis Neurological: No headache, diplopia, change in muscle strength, numbness or tingling, no change in gait, balance, coordination, mood, affect, memory, mentation, behavior Psychiatric: No anxiety, or depression Endocrine: No temperature intolerance, no excessive thirst, fluid intake, or urination, no tremor Hematologic/Lymphatic: No abnormal bruising or bleeding, blood clots or swollen lymph nodes Allergic/Immunologic: No nasal congestion or hives OBJECTIVE LAST LABS: CBC: Results from last 7 days Lab Units 04/11/2344404/10/2340404/09/238 WBC X10E9/L 5.6 7.8 7.8 HEMOGLOBIN g/dL 10.1* 10.8* 10.9* HEMATOCRIT % 30.5* 31.2* 32.0* MCV fL 99 97 99 PLATELETS X10E9/L 118* 148* 153 BMP: Results from last 7 days Lab Units 04/11/2344404/10/2340404/09/23182304/09/238 SODIUM mmol/L 145 144 -- 145 POTASSIUM mmol/L 4.0 4.0 -- 4.0 CHLORIDE mmol/L 112* 110* -- 110* CO2 mmol/L 24 -- 25 BUN mg/dL 14 17 -- 19 CREATININE mg/dL 0.68 0.68 -- 0.78 CALCIUM mg/dL 8.5 8.5 -- 8.4* PHOSPHORUS mg/dL -- 2.8 3.1 2.3* MAGNESIUM mg/dL 1.6* 1.9 2.3 1.5* PT/INR: APTT: MAG: Results from last 7 days Lab Units 04/11/2344404/10/2340404/09/231823 MAGNESIUM mg/dL 1.6* 1.9 2.3 D Dimer: Troponin I ProBNP Lipid Panel: No results found for: CHOL , TRIG , HDL , CHOLHDLR Liver Panel: No results found for: ALB HgA1C: No results found for: HGBA1C ABG: CV HISTORY: ECHO: No results found. STRESS: No results found. HOLTER: No results found. CARDIAC CATH: No results found. CAROTID: No results found. CXR: X-ray chest 1 view Result Date: 04/10/2023 XR CHEST 1 VW 04/10/2023 1:55 PM INDICATION: r/o pneumonia COMPARISON: Priors dating back to 05/14/2020 TECHNIQUE: AP view the chest was obtained FINDINGS: Right-sided PICC with the tip terminating within the expected region of the cavoatrial junction. Nasogastric tube courses below the diaphragm. Distal tip is obscured by enteric contrast. No focal consolidations.There is no pneumothorax. There is no pleural effusion. The cardiomediastinal silhouette is unremarkable. No acute osseous abnormalities. IMPRESSION: No acute cardiopulmonary process. Lines and tubes as above. Finalized by Irwin Hou on 04/10/2023 2:13 PM X-ray chest 1 view Result Date: 04/07/2023 XR CHEST 1 VW HISTORY: Abdominal pain, NG tube placement COMPARISON: Chest x-ray 02/15/2023 FINDINGS: Enteric tube terminates above the level of the GE junction. Diffuse gaseous distention of the stomach and both large and small bowel. Visualized lung bases are clear. IMPRESSION: * Enteric tube terminates above the level of the GE junction, recommend advancing 13 cm. Approved by Resident Angel Givens DO on 04/07/2023 10:28 PM IJuan MD have personally reviewed the image(s) and agree with and/or edited the report Finalized by Juan Torres MD on 04/07/2023 10:32 PM X-ray chest 2 views Result Date: 02/15/2023 XR CHEST 2 VWS HISTORY: Fever COMPARISON: 01/29/2021 FINDINGS: AP erect and lateral upright films obtained. Battery pack overlies the left chest with lead extending superiorly into the left neck. The cardiomediastinal silhouette is within normal limits. No pneumothorax or pleural effusion. Right lower lobe opacity. IMPRESSION: Right lower lobe opacity, which may represent pneumonia in the appropriate clinical setting. Approved by Resident Alex Azevedo MD on 02/15/2023 9:29 AM I, Dimas Delgado MD have personally reviewed the image(s) and agree with and/or edited the report Finalized by Dimas Delgado MD on 02/15/2023 9:33 AM X-ray chest 1 view Result Date: 02/13/2023 EXAMINATION: ONE XRAY VIEW OF THE CHEST 02/13/2023 6:30 am COMPARISON: February 11, 2023 HISTORY: ORDERING SYSTEM PROVIDED HISTORY: cough TECHNOLOGIST PROVIDED HISTORY: cough FINDINGS: There is poor inspiration with crowding of the bronchovascular markings. Stable right perihilar infiltrate. Possible small left-sided pleural effusion. No pneumothorax. Stable cardiac and mediastinal silhouettes. Stable appearance of the chest. X-ray chest 1 view Result Date: 02/11/2023 EXAMINATION: ONE XRAY VIEW OF THE CHEST 02/11/2023 9:19 am COMPARISON: 02/10/2023 HISTORY: ORDERING SYSTEM PROVIDED HISTORY: cough TECHNOLOGIST PROVIDED HISTORY: cough FINDINGS: Enteric tube terminates in the stomach. New right lower lobe patchy pulmonary opacity. The left lung is clear. There is no effusion or pneumothorax. The cardiomediastinal silhouette is without acute process. The osseous structures are without acute process. Cervical stimulator leads with generator in the left chest wall. New right lower lobe patchy pulmonary opacity representing pneumonia or atelectasis. X-ray chest 1 view Result Date: 02/10/2023 EXAMINATION: ONE XRAY VIEW OF THE CHEST 02/10/2023 3:45 pm COMPARISON: 06/12/2022 HISTORY: ORDERING SYSTEM PROVIDED HISTORY: rule out aspiration. TECHNOLOGIST PROVIDED HISTORY: rule out aspiration. FINDINGS: NG tube with tip in the stomach. Stable stimulating device with distal portion overlying the left neck. Mild left basilar opacities suggesting atelectasis or infiltrate. Possible small left pleural effusion. There is no pneumothorax. The cardiomediastinal silhouette is stable. The osseous structures are stable. Mild left basilar opacities suggesting atelectasis or infiltrate.. EKG: PHYSICAL EXAM Admission Weight: Weight: 74.4 kg (164 lb 0.4 oz) I/O last 3 completed shifts: In: 3931.3 [I.V.:3104; IV Piggyback:827.4] Out: 1100 [Emesis/NG output:1100] Weight change: Wt Readings from Last 3 Encounters: 04/11/23 79.2 kg (174 lb 9.7 oz) 04/07/23 78.7 kg (173 lb 8 oz) 02/15/23 81.7 kg (180 lb 3.2 oz) Vitals: Vitals: 04/11/23 0012 04/11/23 0347 04/11/23 0500 04/11/23 0803 BP: 110/78 108/62 Pulse: 53 51 Resp: (!) 33 22 Temp: 36.3 C (97.3 F) 36.3 C (97.4 F) 36.5 C (97.7 F) TempSrc: Temporal Temporal Oral SpO2: 97% 96% Weight: 79.2 kg (174 lb 9.7 oz) Height: Admit Weight Weight: 74.4 kg (164 lb 0.4 oz) Last 3 Weights Last 3 Weight Readings 04/09/23 0448 04/11/23 0500 Weight: 74.4 kg (164 lb 0.4 oz) 79.2 kg (174 lb 9.7 oz) Body mass index is 28.18 kg/m . INTAKE/OUTPUT I/O last 3 completed shifts: In: 3931.3 [I.V.:3104; IV Piggyback:827.4] Out: 1100 [Emesis/NG output:1100] Intake/Output Summary (Last 24 hours) at 04/11/2023 1200 Last data filed at 04/11/2023 1110 Gross per 24 hour Intake 1838.37 ml Output -- Net 1838.37 ml General appearance: Alert and cooperative, in no acute distress Neck: No JVD, no carotid bruit, neck supple, trachea midline Lungs: Rhonchi to ausculation bilaterally, no use of accessory muscles. Heart:: Slow rate, normal rhythm with normal S1 and S2. Extremities: No demetrio ASSESSMENT Asymptomatic sinus bradycardia Presented for nausea/vomiting with small bowel obstruction MRDD Hypomagnesemia, replace History of seizures Chronic normocytic anemia History of vagal nerve stimulator PLAN EKG in telemetry reviewed and it appears to be sinus bradycardia without any evidence of higher degree AV block. Will check echocardiogram to rule out valvular disease. May need sleep apnea evaluation at some point. Will continue to monitor telemetry. XAVIER SEGAL PA-C This note was completed using a voice sidewalk repairer system. Every effort was made to ensure accuracy. However, inadvertent computerized sidewalk repairer errors may be present. Xavier Segal PA-C 04/11/23 1200 Xavier Segal PA-C 04/11/23 1200 I have personally performed a face to face diagnostic evaluation on this patient. I have reviewed the note authored by the advanced practice provider/resident/fellow and agree with the history of present illness, past medical history, surgical history, social history, family history and review of systems.. I have reviewed current medications, and lab values. Sinus bradycardia on telemetry without significant pauses seems to be related to increased vagal tone from abdominal pain and nausea and vomiting. Will observe on telemetry. agree with echocardiography test. Associated Order(s): IP CONSULT TO NEUROLOGY Images from the original note were not included. NEUROLOGY CONSULT NOTE DATE OF ADMISSION 04/08/2023 5:30 AM REASON FOR CONSULTATION: Seizure disorder, NPO for SBO, vagal stimulator SUBJECTIVE: Amol Taylor is a 68 y.o. White or male with past medical history of intellectual disability, intractable epilepsy status post VNS, and previous small bowel obstructions for home neurology is consulted regarding seizure medication management due to being NPO. AED Keppra 1500/2000 Lacosamide 150/150 Primidone 250/325 Lamotrigine 400/600 Recent Neurology Visit/Encounter Inpatient consult (02/11/23): Past Brain Imagining CT brain (02/15/2023): * No evidence of acute disease. There is substantial patient motion lowering the sensitivity of the exam. * Prior right cerebral insult with asymmetric atrophy and more localized encephalomalacia posterior parietal distribution. Correlate with relevant history. Past EEG None documented RELEVANT PAST MEDICAL HISTORY: Past Medical History: Diagnosis Date Abdominal hernia large but surgical risk Abnormal result of iron profile testing chronic ds Allergic Allergic rhinitis Balance problem falls with several fx// wears helment for protection Bowel obstruction (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, lt vision loss with some recovery, seizures Obesity with diet pt lost some wt Osteoarthritis Osteopenia dexa 2018 hip -1.7 Pneumonia Seborrheic dermatitis Seizures ([facility]) grand mal/ cluster(jerking motions) // has a VNS implant which decreased grand mal seizures/ jerking episod weekly Uninodular goiter Urine incontinence CURRENT MEDICATIONS: Scheduled Meds: heparin (porcine), 5,000 Units, subcutaneous, Q8H DAR levETIRAcetam, 2,000 mg, intravenous, HS levETIRAcetam, 1,500 mg, intravenous, QAM AC sodium chloride, 3 mL, intravenous, Q12H DAR Continuous Infusions: dextrose 5 % in water, 100 mL/hr sodium chloride 0.9 %, 20 mL/hr sodium chloride 0.9 % with KCl 20 mEq/L, 100 mL/hr, Last Rate: 100 mL/hr (04/08/23 1015) PRN Meds:. dextrose dextrose 5 % in water dextrose 50 % in water (D50W) glucagon (human recombinant) magnesium sulfate magnesium sulfate potassium chloride in water sodium chloride sodium chloride sodium chloride 0.9 % REVIEW OF SYSTEMS: As mentioned in HPI PHYSICAL EXAM: Vital Signs: Blood pressure 117/69, pulse 83, temperature 36.4 C (97.5 F), temperature source Oral, resp. rate 18, SpO2 95%. Neurologic: Mental status: Alert; oriented to time, place, person and situation. No aphasia. Cranial nerves: II: pupils equal and reactive to light; visual matta full; III, IV, : extraocular movements intact; no ptosis. No nystagmus. V: Deferred at patient request VII: face symmetric with normal eye closure VIII: Gross hearing intact IX, X: Patient not cooperating XI: Shoulder elevation symmetric XII: tongue midline with good movements. Motor: 4-/5 in BLE and 4/5 in BUE. Spasticity in LLE at the ankle and foot. Normal bulk. No fasciculations. No bradykinesia. No tremors. No other abnormal movements. Reflexes: Patient not cooperating and asked to defer Sensory examination: General sensation to light touch intact in all extremities Coordination: Patient not cooperating Gait and Station: Deferred LAB REVIEW: Recent Results (from the past 72 hour(s)) CBC auto differential Collection Time: 04/07/23 8:50 PM Result Value Ref Range White Blood Cells 12.9 (H) 4.0 - 11.0 X10E9/L RBC count 4.21 4.10 - 5.70 X10E12/L Hemoglobin 13.9 13.0 - 17.0 g/dL Hematocrit 41.6 39 - 49 % MCV 99 80 - 100 fL MCH 32.9 27 - 34 pg MCHC 33.3 32 - 36 g/dL RDW 13.6 11.5 - 15.0 % Platelets 227 150 - 450 X10E9/L MPV 7.2 7 - 12 fL % neutrophils 86.2 % % lymphocytes 6.9 % % monocytes 5.9 % % eosinophils 0.7 % % Basophils 0.3 % Neutrophils Absolute (A) 11.1 (H) 1.5 - 6.6 X10E9/L Lymphocytes Absolute 0.9 (L) 1.0 - 3.5 X10E9/L Monocytes Absolute 0.8 0 - 0.9 X10E9/L Eosinophils Absolute 0.1 0.0 - 0.4 X10E9/L Basophils Absolute 0.0 0.0 - 0.2 X10E9/L Comprehensive metabolic panel Collection Time: 04/07/23 8:50 PM Result Value Ref Range Sodium 136 134 - 146 mmol/L Potassium, Bld 4.0 3.5 - 5.0 mmol/L Chloride 100 98 - 109 mmol/L CO2 27 22 - 32 mmol/L Anion gap 9 5 - 15 mmol/L BUN 22 5 - 27 mg/dL Creatinine 1.23 (H) 0.70 - 1.20 mg/dL Glucose 102 (H) 65 - 99 mg/dL Calcium 9.3 8.5 - 10.5 mg/dL Total Protein 8.2 (H) 6.0 - 8.0 g/dL Albumin 4.6 3.2 - 5.3 g/dL Alkaline Phosphatase 145 (H) 39 - 130 U/L AST 19 0 - 41 U/L ALT 22 0 - 40 U/L Total bilirubin 0.6 0.3 - 1.2 mg/dL eGFR (CKD-EPI)non-race dependent 64 >59 ml/min/1.73sq.m Lipase Collection Time: 04/07/23 8:50 PM Result Value Ref Range Lipase 39 17 - 40 U/L CBC auto differential Collection Time: 04/08/23 6:22 AM Result Value Ref Range White Blood Cells 10.3 4.0 - 11.0 X10E9/L RBC count 3.88 (L) 4.10 - 5.70 X10E12/L Hemoglobin 12.9 (L) 13.0 - 17.0 g/dL Hematocrit 37.7 (L) 39 - 49 % MCV 97 80 - 100 fL MCH 33.3 27 - 34 pg MCHC 34.3 32 - 36 g/dL RDW 13.5 11.5 - 15.0 % Platelets 224 150 - 450 X10E9/L MPV 7.3 7 - 12 fL % neutrophils 59.3 % % lymphocytes 30.5 % % monocytes 8.8 % % eosinophils 0.9 % % Basophils 0.5 % Neutrophils Absolute (A) 6.1 1.5 - 6.6 X10E9/L Lymphocytes Absolute 3.1 1.0 - 3.5 X10E9/L Monocytes Absolute 0.9 0 - 0.9 X10E9/L Eosinophils Absolute 0.1 0.0 - 0.4 X10E9/L Basophils Absolute 0.1 0.0 - 0.2 X10E9/L Comprehensive metabolic panel Collection Time: 04/08/23 6:22 AM Result Value Ref Range Sodium 144 134 - 146 mmol/L Potassium, Bld 4.1 3.5 - 5.0 mmol/L Chloride 104 98 - 109 mmol/L CO2 30 22 - 32 mmol/L Anion gap 10 5 - 15 mmol/L BUN 19 5 - 27 mg/dL Creatinine 1.04 0.60 - 1.30 mg/dL Glucose 95 65 - 99 mg/dL Calcium 9.1 8.5 - 10.5 mg/dL Total Protein 7.1 6.0 - 8.0 g/dL Albumin 4.1 3.2 - 5.3 g/dL Alkaline Phosphatase 128 39 - 130 U/L AST 15 0 - 41 U/L ALT 14 0 - 40 U/L Total bilirubin 0.6 0.3 - 1.2 mg/dL eGFR (CKD-EPI)non-race dependent 79 >59 ml/min/1.73sq.m Lactate w/ Reflex Collection Time: 04/08/23 6:22 AM Result Value Ref Range Lactate w/ Reflex 1.2 0.4 - 2.0 mmol/L IMAGING: X-ray chest 1 view Result Date: 04/07/2023 Narrative: XR CHEST 1 VW HISTORY: Abdominal pain, NG tube placement COMPARISON: Chest x-ray 02/15/2023 FINDINGS: Enteric tube terminates above the level of the GE junction. Diffuse gaseous distention of the stomach and both large and small bowel. Visualized lung bases are clear. IMPRESSION: * Enteric tube terminates above the level of the GE junction, recommend advancing 13 cm. Approved by Resident Angel Givens DO on 04/07/2023 10:28 PM IJuan MD have personally reviewed the image(s) and agree with and/or edited the report Finalized by Juan Torres MD on 04/07/2023 10:[address] abdomen and pelvis with contrast Result Date: 04/07/2023 Narrative: CT ABDOMEN AND PELVIS WITH CONTRAST CLINICAL INFORMATION: Acute nonlocalized abdominal pain TECHNIQUE: Multidetector spiral CT scan of the abdomen and pelvis was performed following the uneventful administration of nonionic intravenous contrast. Coronal and sagittal reformatted images were obtained and reviewed. Automated exposure control was utilized. Following the intravenous injection of 100 cc of Omnipaque 300, a CT of the abdomen and pelvis and sagittal and coronal reformats obtained. All CT scans at this facility use dose modulation, iterative reconstruction, and/or weight based dosing when appropriate to reduce radiation dose to as low as reasonably achievable. COMPARISON: CT dated 01/29/2021 FINDINGS: Haziness in the dependent lower lungs. Massive dilatation of the stomach and multiple dilated small bowel loops suspicious for obstruction in the mid small bowel, the transition zone is difficult to determine and it could be more than one area of transition. No focal lesions seen in the liver, spleen, adrenal glands, or pancreas. There is a lenticular shaped abnormality along the posterior aspect of the left kidney with peripheral calcification, not significantly changed, consistent with benign etiology, no follow-up required. No free fluid. IMPRESSION: 1. Distended the stomach and multiple small bowel loops suspicious for obstruction in the mid small bowel. Finalized by Huey Shaffer MD on 04/07/2023 9:48 PM PROBLEM LIST: Patient Active Problem List Diagnosis Seizures ([facility]) Mental retardation Obesity Balance problem Osteoarthritis Left arm weakness Bowel obstruction ([facility]) Eczema Preventative health care BPH (benign prostatic hyperplasia) Osteopenia Seborrheic dermatitis Medicare annual wellness visit, subsequent Vitamin D deficiency Respiratory crackles Hospital discharge follow-up SBO (small bowel obstruction) ([facility]) ASSESSMENT: Amol Taylor is a 68 y.o. White or male with past medical history of intellectual disability, intractable epilepsy status post VNS, and previous small bowel obstructions for home neurology is consulted regarding seizure medication management due to being NPO. IMPRESSION History of epilepsy status post VNS and currently managed with oral anti seizure medications SBO PLAN: Patient currently NPO with an NG to suction Will change coordinator oral AEDs to IV as able IV Keppra 1500/2000 and IV Vimpat 150/150 Hold on primidone and lamotrigine at this time due to no IV formulation If needed will increase Keppra and Vimpat, but not necessary at this time Discussed with Dr. Umesh Blackwell MD Neurology Resident, Pgy-3 This patient is being followed by the Neurology Resident service. Contact attending directly during these hours: Sunday to 7:30-8:30 A.M. to Sunday 12-1:00 p.m. Primary Neurology service: [phone] Consult neurology service: [phone] Resident Stroke Service: [phone] If the patient belongs to the Stroke MEMO service please contact the Stroke MEMO directly. Associated attestation - Romana Calvo MD - 04/09/2023 8:44 PM EST I reviewed the resident's note and discussed the case with the resident. This specific service will not be billed. Additional findings/notes: Images from the original note were not included. General Surgery B Consultation Chief Complaint: SBO History of Present Illness: Pt is a poor historian; HPI supplemented with information from EMR and medical staff Amol Taylor is a 68 y.o. male past medical history of seizure disorder, vagus nerve stimulator, small-bowel obstruction, MR DD, BPH who was brought to the ER with complaints of vomiting. CT showed concerns for SBO. Pt was transferred to [facility]. Pt denies any abd pain at this time. Denies nausea or vomiting. Pt does have a complicated abdominal surgical history with multiple small bowel resections and SBOs. Review of Systems Unable to perform ROS: Mental status change Past Medical History: Diagnosis Date Abdominal hernia large but surgical risk Abnormal result of iron profile testing chronic ds Allergic Allergic rhinitis Balance problem falls with several fx// wears helment for protection Bowel obstruction (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, lt vision loss with some recovery, seizures Obesity with diet pt lost some wt Osteoarthritis Osteopenia dexa 2018 hip -1.7 Pneumonia Seborrheic dermatitis Seizures ([facility]) grand mal/ cluster(jerking motions) // has a VNS implant which decreased grand mal seizures/ jerking episod weekly Uninodular goiter Urine incontinence Past Surgical History: Procedure Laterality Date CLAVICLE SURGERY COLONOSCOPY CYSTOCELE REPAIR 2016 EXCHANGE STIMULATOR BATTERY VAGAL NERVE N/A 03/23/2020 Performed by Nicola Mahan MD at 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 2004 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 REPAIR 7 months old SMALL INTESTINE SURGERY 1985, 1992, 1993 s/p diverticulitis; bowel obstruction x 2 Allergies Allergen Reactions Penicillins Hives and Shortness Of Breath Clindamycin Rash Current Facility-Administered Medications: dextrose (GLUTOSE) 40 % gel 15 g, 15 g, oral, PRN, Nazia Broussard MD dextrose 5 % (D5W) infusion, 100 mL/hr, intravenous, Continuous PRJhonatan, Nazia Broussard MD dextrose 50 % in water (D50W) 50% solution 25 mL, 25 mL, intravenous, PRN, Nazia Broussard MD glucagon HCL injection 1 mg, 1 mg, intramuscular, PRN, Nazia Broussard MD heparin (porcine) injection 5,000 Units, 5,000 Units, subcutaneous, Q8H DAR, Nazia Broussard MD, 5,000 Units at 04/08/23 1015 sodium chloride 0.9 % flush 3 mL, 3 mL, intravenous, PRN, Nazia Broussard MD sodium chloride 0.9 % flush 3 mL, 3 mL, intravenous, Q12H DAR, Nazia Broussard MD sodium chloride 0.9 % flush bag, 25 mL, intravenous, PRN, Nazia Broussard MD sodium chloride 0.9 % infusion, 20 mL/hr, intravenous, Continuous PRN, Nazia Broussard MD sodium chloride 0.9 % with KCl 20 mEq/L infusion, 100 mL/hr, intravenous, Continuous, Nazia Broussard MD, Last Rate: 100 mL/hr at 04/08/23 1015, 100 mL/hr at 04/08/23 1015 Social History Socioeconomic History Marital status: Single Spouse name: Not on file Number of children: 0 Years of education: Not on file Highest education level: Not on file Occupational History 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 Tobacco Use Smoking status: Never Smokeless tobacco: Never Substance and Sexual Activity Alcohol use: No Drug use: No Sexual activity: Never Other Topics Concern Not on file Social History Narrative Not on file Social Determinants of Health Financial Resource Strain: Not on file Food Insecurity: No Food Insecurity (04/07/2023) Hunger Screening Food Insecurity - Worry: Never True Food Insecurity - Inability: Never True Transportation Needs: Not on file Physical Activity: Not on file Stress: Not on file Social Connections: Not on file Interpersonal Safety: Not on file Housing Instability: Not on file Family History Problem Relation Age of Onset Thyroid cancer Mother Multiple myeloma Mother Arthritis Mother Heart disease Mother Pancreatitis Mother Lung cancer Father Diabetes Sister Hypertension Sister Diabetes Brother Heart disease Brother COPD Brother Physical Exam HENT: Head: Normocephalic and atraumatic. Right Ear: External ear normal. Left Ear: External ear normal. Nose: Nose normal. Eyes: Extraocular Movements: Extraocular movements intact. Cardiovascular: Rate and Rhythm: Normal rate. Pulses: Normal pulses. Pulmonary: Effort: Pulmonary effort is normal. Abdominal: General: There is no distension. Palpations: Abdomen is soft. There is no mass. Tenderness: There is no abdominal tenderness. There is no guarding. Musculoskeletal: General: Normal range of motion. Cervical back: Normal range of motion. Skin: General: Skin is warm. Capillary Refill: Capillary refill takes less than 2 seconds. Neurological: Mental Status: He is alert. Mental status is at baseline. Vital Signs: Blood pressure 115/70, pulse 84, temperature 36.7 C (98 F), temperature source Oral, resp. rate 18, SpO2 96%. Respiratory Source: O2 Device: None (Room air) Admission Weight: Labs: Lab Results Component Value Date WBC 10.3 04/08/2023 HGB 12.9 (L) 04/08/2023 HCT 37.7 (L) 04/08/2023 MCV 97 04/08/2023 PLT 224 04/08/2023 Lab Results Component Value Date GLU 95 04/08/2023 CALCIUM 9.1 04/08/2023 K 4.1 04/08/2023 CO2 30 04/08/2023 CL 104 04/08/2023 BUN 19 04/08/2023 CREATININE 1.04 04/08/2023 No results found for: AMYLASE Lab Results Component Value Date LIPASE 39 04/07/2023 Lab Results Component Value Date ALT 14 04/08/2023 AST 15 04/08/2023 ALKPHOS 128 04/08/2023 No results found for: INR , PROTIME Imaging: X-ray chest 1 view XR CHEST 1 VW HISTORY: Abdominal pain, NG tube placement COMPARISON: Chest x-ray 02/15/2023 FINDINGS: Enteric tube terminates above the level of the GE junction. Diffuse gaseous distention of the stomach and both large and small bowel. Visualized lung bases are clear. IMPRESSION: * Enteric tube terminates above the level of the GE junction, recommend advancing 13 cm. Approved by Resident Angel Givens DO on 04/07/2023 10:28 PM I, Juan Torres MD have personally reviewed the image(s) and agree with and/or edited the report Finalized by Juan Torres MD on 04/07/2023 10:[address] abdomen and pelvis with contrast CT ABDOMEN AND PELVIS WITH CONTRAST CLINICAL INFORMATION: Acute nonlocalized abdominal pain TECHNIQUE: Multidetector spiral CT scan of the abdomen and pelvis was performed following the uneventful administration of nonionic intravenous contrast. Coronal and sagittal reformatted images were obtained and reviewed. Automated exposure control was utilized. Following the intravenous injection of 100 cc of Omnipaque 300, a CT of the abdomen and pelvis and sagittal and coronal reformats obtained. All CT scans at this facility use dose modulation, iterative reconstruction, and/or weight based dosing when appropriate to reduce radiation dose to as low as reasonably achievable. COMPARISON: CT dated 01/29/2021 FINDINGS: Haziness in the dependent lower lungs. Massive dilatation of the stomach and multiple dilated small bowel loops suspicious for obstruction in the mid small bowel, the transition zone is difficult to determine and it could be more than one area of transition. No focal lesions seen in the liver, spleen, adrenal glands, or pancreas. There is a lenticular shaped abnormality along the posterior aspect of the left kidney with peripheral calcification, not significantly changed, consistent with benign etiology, no follow-up required. No free fluid. IMPRESSION: 1. Distended the stomach and multiple small bowel loops suspicious for obstruction in the mid small bowel. Finalized by Huey Shaffer MD on 04/07/2023 9:48 PM Assessment: Amol Taylor is a 68 [address] concerns for SBO Plan: No acute surgical intervention at this time Recommend NG tube to LIWS Pain and nausea control Tentatively plan on SBFT on 04/10/2023 Continue care per primary General surgery will continue to follow Evaluation included: Preparing to see the patient (e.g., review of tests) Obtaining and/or reviewing separately obtained history Performing a medically appropriate examination and/or evaluation Counseling and educating the patient/family/caregiver Referring and communicating with other health veterinarian laboratory animal care Jay Lazaro MD General Surgery Resident, PGY-3 General Surgery B Associated attestation - Hadley Dave MD - 04/09/2023 10:29 PM EST Attending Attestation: I saw the patient. I participated and was physically present during the critical/gee portions of the service. I was directly involved in the management and treatment plan of the patient. I reviewed the resident's note. Additional Notes/Findings: Medical Decision Making: high Continue NG tube serial exams. White count is improving. Hopefully will not need surgery during this admission but will need to continue to monitor with serial exams [facility] History and physical note Images from the original note were not included. GENERAL HISTORY AND PHYSICAL: 04/08/23 PROBLEM: Principal Problem: SBO (small bowel obstruction) ([facility]) HISTORY OF PRESENT ILLNESS: Amol Taylor is an 68 y.o. with a past medical history of seizure disorder, vagus nerve stimulator, small-bowel obstruction, MR DD, BPH who was brought to the ER with complaints of vomiting . He was subsequently transferred to [facility] ER. His CT scan showed concerns for small-bowel obstruction. General surgery evaluated the patient. He has an NG tube in place. History is limited as patient is not able to provide a history and is mostly obtained from reviewing the chart. Patient at present has a NG tube in place and says he feels comfortable. Is denying any pain anywhere or any other complaints. 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, lt vision loss with some recovery, seizures Obesity with diet pt lost some wt Osteoarthritis Osteopenia dexa 2018 hip -1.7 Pneumonia Seborrheic dermatitis Seizures (CMS-HCC) grand mal/ cluster(jerking motions) // has a VNS implant which decreased grand mal seizures/ jerking episod weekly Uninodular goiter Urine incontinence PAST SURGICAL HISTORY: Past Surgical History: Procedure Laterality Date CLAVICLE SURGERY COLONOSCOPY CYSTOCELE REPAIR 2016 EXCHANGE STIMULATOR BATTERY VAGAL NERVE N/A 03/23/2020 Performed by Nicola Mahan MD at [facility] 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 2004 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 REPAIR 7 months old SMALL INTESTINE SURGERY 1985, 1992, 1993 s/p diverticulitis; bowel obstruction x 2 Travel History Travel Screening Question Response Have you been in contact with someone who was sick? No / Unsure Do you have any of the following new or worsening symptoms? None of these Have you traveled internationally or domestically in the last month? 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 Tobacco Use Smoking status: Never Smokeless tobacco: Never Substance and Sexual Activity Alcohol use: No Drug use: No Sexual activity: Never Other Topics Concern Not on file Social History Narrative Not on file Social Determinants of Health Financial Resource Strain: Not on file Food Insecurity: No Food Insecurity (04/07/2023) Hunger Screening Food Insecurity - Worry: Never True Food Insecurity - Inability: Never True Transportation Needs: Not on file Physical Activity: Not on file Stress: Not on file Social Connections: Not on file Interpersonal Safety: Not on file Housing Instability: Not on file ALLERGIES: Allergies Allergen Reactions Penicillins Hives and Shortness Of Breath Clindamycin Rash HOME MEDICATIONS: Medications Prior to Admission Medication Sig Dispense Refill Last Dose acetaminophen (TYLENOL EXTRA STRENGTH) 500 mg tablet Take 1 tablet (500 mg total) by mouth every 6 (six) hours as needed for pain. 30 tablet 0 albuterol (PROVENTIL HFA;VENTOLIN HFA) 90 mcg/actuation inhaler Inhale 2 puffs every 4 (four) hours as needed for wheezing. 18 g 0 calcium carbonate (OS-TAYE) 600 mg (1,500 mg) tablet Take 1 tablet (600 mg total) by mouth 2 (two) times a day with meals. chewable 90 tablet 1 carbamide peroxide (DEBROX) 6.5 % otic solution Apply 4 ggt to both ear nightly once a month . Cotton ball then in am rinse with body temperature water using syringe in kit 15 mL 0 cholecalciferol, vitamin D3, (cholecalciferol) 1,000 units tablet Take 1 tablet (1,000 Units total) by mouth daily. 90 tablet 1 finasteride (PROSCAR) 5 mg tablet Take 1 tablet (5 mg total) by mouth daily. 90 tablet 1 hydrocortisone (HYTONE) 2.5 % cream Apply 2.5 application topically 2 (two) times a day as needed. hydrOXYzine (ATARAX) 25 mg tablet Take 1 tablet (25 mg total) by mouth as needed for itching. 30 tablet 0 inulin-chromium picolinate 2-100 gram-mcg tablet,chewable Chew 2 tablets and swallow daily. 180 tablet 1 lamoTRIgine (LaMICtal) 200 mg tablet 1/2 twice daily 90 tablet 1 levETIRAcetam (KEPPRA) 1000 mg tablet Take 1 tablet (1,000 mg total) by mouth 2 (two) times a day. (Patient taking differently: Take 1,500 mg by mouth 2 (two) times a day. ) 180 tablet 1 loperamide (IMODIUM A-D) 2 mg tablet Take 1 tablet (2 mg total) by mouth 2 (two) times a day as needed for diarrhea. 30 tablet 1 LORazepam (ATIVAN) 0.5 mg tablet Take 1 tablet (0.5 mg total) by mouth daily as needed for anxiety or seizures. 30 tablet 0 meclizine (ANTIVERT) 25 mg tablet Take 1 tablet (25 mg total) by mouth daily. 30 tablet 0 ondansetron ODT (ZOFRAN-ODT) 4 mg disintegrating tablet Dissolve 1 tablet (4 mg total) on tongue every 12 (twelve) hours as needed for nausea or vomiting. 60 tablet 1 primidone (MYSOLINE) 250 mg tablet 1 1/2 twice daily 270 tablet 1 tamsulosin (FLOMAX) 0.4 mg capsule,extended release 24hr Take 1 capsule (0.4 mg total) by mouth 2 (two) times a day. 180 capsule 1 VIMPAT 150 mg tablet Take 1 tablet (150 mg total) by mouth 2 (two) times a day. 60 each 0 white petrolatum-mineral oil (SYSTANE NIGHTTIME) 94-3 % ointment Instill 1 application to eye nightly. To eye lid Area bilat not conjuctivia (for pt chronic itching of ey) 1 Tube 2 IMMUNIZATIONS: Immunization History Administered Date(s) Administered Influenza, Injectable, quadrivalent (PF) 02/14/2017, 12/20/2017 Influenza, Unspecified 01/14/2014, 12/24/2014, 02/14/2017 Pneumococcal Conjugate 13-Valent 01/14/2010, 02/14/2017 Pneumococcal Polysaccharide 07/09/2018 Tdap 03/04/2013 REVIEW OF SYSTEMS: Review of Systems HENT: Negative for sore throat. Respiratory: Negative for shortness of breath. Cardiovascular: Negative for chest discomfort. Gastrointestinal: Positive for vomiting. Negative for abdominal pain. Genitourinary: Negative for dysuria. Musculoskeletal: Negative for myalgias. Skin: Negative for rash. Psychiatric/Behavioral: Negative for agitation. Patient's review of system is limited secondary to MR WINTERS however denies any complaints at present. Did say he had some vomiting earlier, No LMP for male patient. BP 115/70 Pulse 84 Temp 36.7 C (98 F) (Oral) Resp 18 SpO2 96% O2 Device: None (Room air) PHYSICAL EXAM: Physical Exam Constitutional He appears well-nourished. No distress. HENT Head Normocephalic and atraumatic. Eyes: Conjunctivae are normal. Cardiovascular: Normal rate and regular rhythm. Heart Sounds: normal heart sounds. no JVD Pulmonary/Chest: Effort normal and breath sounds normal. No respiratory distress. Abdominal: There is no abdominal tenderness. There is no guarding. Distended, NG tube in place Musculoskeletal: General: No tenderness or edema. Neurological He is alert. Alert and awake Poor historian, oriented to person only Skin: No rash noted. ASSESSMENT: Small-bowel obstruction History of seizure disorder MR WINTERS History of BPH PLAN: Small-bowel obstruction-management as per general surgery team, has a NG tube in place Of seizure disorder- presently NPO, nursing in the process of obtaining medication list from nursing facility, will change to IV if possible, may need neurology if multiple oral medication, vagal nerve stimulator in place, per chart magnet has been misplaced History of MR VIANEY History of BPH DVT prophylaxis-subcu heparin Needs a med rec once medication list obtained from facility [facility] department Note Parking Enforcement Specialist RN spoke to Legal Guardian Elizabeth. Pat addressed concerns about vagal nerve stimulator and magnet not with patient for epilepsy. Dr. Gilman notified and aware. Pt transfer from [facility]. History of SBO. Begun having n/v, found to have multiple SBO per sending facility report. NG in place to low intermittent suction. Received zofran and morphine BUSINESS SERVICES ASSISTANT. Denies symptoms at this time. Images from the original note were not included. History Chief Complaint Patient presents with Vomiting Initial evaluation by Dr. De Jesus 68 y.o. pt. presents to ED as a transfer from [facility] ED due to small bowel obstruction. Patient presented to outside ED due to decreased bowel movements. Patient has a history of MRDD and multiple abdominal surgeries. On arrival to [place] ED, patient has no complaints. Denies pain. NG tube in place. 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: Patient Patient Active Problem List Diagnosis Seizures ([facility]) Mental retardation Obesity Balance problem Osteoarthritis Left arm weakness Bowel obstruction ([facility]) Eczema Preventative health care BPH (benign prostatic hyperplasia) Osteopenia Seborrheic dermatitis Medicare annual wellness visit, subsequent Vitamin D deficiency Respiratory crackles Hospital discharge follow-up SBO (small bowel obstruction) ([facility]) Past Medical History: Diagnosis Date Abdominal hernia large but surgical risk Abnormal result of iron profile testing chronic ds Allergic Allergic rhinitis Balance problem falls with several fx// wears helment for protection Bowel obstruction (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, lt vision loss with some recovery, seizures Obesity with diet pt lost some wt Osteoarthritis Osteopenia dexa 2018 hip -1.7 Pneumonia Seborrheic dermatitis Seizures (CMS-HCC) grand mal/ cluster(jerking motions) // has a VNS implant which decreased grand mal seizures/ jerking episod weekly Uninodular goiter Urine incontinence Past Surgical History: Procedure Laterality Date CLAVICLE SURGERY COLONOSCOPY CYSTOCELE REPAIR 2015 EXCHANGE STIMULATOR BATTERY VAGAL NERVE N/A 03/23/2020 Performed by Nicola Mahan MD at [facility] 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 2004 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 REPAIR 7 months old SMALL INTESTINE SURGERY 1985, 1992, 1993 s/p diverticulitis; bowel obstruction x 2 Travel Screening Question Response Have you been in contact with someone who was sick? No / Unsure Do you have any of the following new or worsening symptoms? None of these Have you traveled internationally or domestically in the last month? No Travel History Travel since 03/08/23 No documented travel since 03/08/23 Family History Problem Relation Age of Onset Thyroid cancer Mother Multiple myeloma Mother Arthritis Mother Heart disease Mother Pancreatitis Mother Lung cancer Father Diabetes Sister Hypertension Sister Diabetes Brother Heart disease Brother COPD Brother Social History Substance and Sexual Activity Drug Use No Social History Tobacco Use Smoking status: Never Smokeless tobacco: Never Substance Use Topics Alcohol use: No Drug use: No Review of Systems Constitutional: Negative for chills and fever. HENT: Negative for congestion, rhinorrhea and sore throat. Eyes: Negative. Respiratory: Negative for cough, chest tightness and shortness of breath. Cardiovascular: Negative for chest pain/discomfort and palpitations. Gastrointestinal: Negative for abdominal distention, abdominal pain, constipation, diarrhea, nausea and vomiting. Genitourinary: Negative for difficulty urinating. Musculoskeletal: Negative for back pain and neck pain. Skin: Negative for pallor. Allergic/Immunologic: Negative. Neurological: Negative for numbness and headaches. Psychiatric/Behavioral: Negative. Physical Exam ED Triage Vitals Temp Pulse Resp BP SpO2 -- -- -- -- -- Temp src Heart Rate Source Patient Position BP Location FiO2 (%) -- -- -- -- -- Vitals: 04/08/23 0539 BP: 109/73 Pulse: 74 Resp: 16 SpO2: 96% Physical Exam Vitals reviewed. Constitutional: General: He is not in acute distress. Appearance: He is well-developed. HENT: Head: Normocephalic and atraumatic. Nose: Comments: NG tube in place Eyes: Extraocular Movements: Extraocular movements intact. Cardiovascular: Rate and Rhythm: Normal rate and regular rhythm. Heart sounds: Normal heart sounds. Pulmonary: Effort: Pulmonary effort is normal. Breath sounds: Normal breath sounds. Abdominal: Palpations: Abdomen is soft. Tenderness: There is no abdominal tenderness. There is no guarding or rebound. Musculoskeletal: Cervical back: Normal range of motion and neck supple. Comments: L arm & BLE are contracted. R arm - normal ROM Skin: General: Skin is warm and dry. Neurological: Mental Status: He is alert and oriented to person, place, and time. Procedure Procedures Re-Evaluation Re-Evaluation ED Course Clinical Impressions as of 04/08/23 0751 SBO (small bowel obstruction) ([facility]) Seizure disorder ([facility]) MDM Medical Decision Making Conor Ng (scribe) documented for Dr. De Jesus. Chart Reviewed. -- 04/07/23 Outside ED note. Patient had labs and imaging completed. CT abd pelvis notes distended stomach and multiple small bowel moops suspicious for obstruction in the mid small bowel. Chief Complaint: SBO Differential Diagnosis includes but is not limited to: SBO Plan of Care: Will repeat Labs & Consult General Surgery 5:55 AM -- Dr. De Jesus spoke with gen surg and they will come evaluate pt. 6:00AM -- Patient signed out to Dr Gilman. Awaiting repeat labs and recommendations from general surgery Labs WNL -- normal WBC, normal lactate therefore low concern for intraabd infection or ischemia On re-evaluation, patient is resting comfortably. Results were discussed. Based on the diagnostic results and physical exam, pt requires admission. Pt agrees with plan of care. Amount and/or Complexity of Data Reviewed Labs: ordered. Risk Decision regarding hospitalization. RESULTS Labs: Labs Reviewed CBC WITH AUTO DIFFERENTIAL - Abnormal; Notable for the following components: Result Value RBC count 3.88 (*) Hemoglobin 12.9 (*) Hematocrit 37.7 (*) All other components within normal limits COMPREHENSIVE METABOLIC PANEL LACTATE W/ REFLEX APTT BASIC METABOLIC PANEL CBC WITH AUTO DIFFERENTIAL MAGNESIUM PHOSPHORUS Radiology: No results found. NURSING NOTES AND VITALS REVIEWED The nursing notes within the ED encounter and vital signs as below have been reviewed. BP 129/72 Pulse 77 Temp 36.9 C (98.4 F) (Oral) Resp 22 SpO2 93% --------- PROGRESS NOTES --------- The plan of care has been discussed with patient including today s results, in addition to providing specific details regarding counseling pertaining to the diagnosis and prognosis. All questions were answered at this time and they are agreeable with the plan ADDITIONAL PROVIDER NOTES At this time the patient has objective evidence of an acute process requiring hospitalization or inpatient management. Medications dextrose (GLUTOSE) 40 % gel 15 g (has no administration in time range) dextrose 50 % in water (D50W) 50% solution 25 mL (has no administration in time range) glucagon HCL injection 1 mg (has no administration in time range) dextrose 5 % (D5W) infusion (has no administration in time range) sodium chloride 0.9 % flush bag (has no administration in time range) sodium chloride 0.9 % infusion (has no administration in time range) sodium chloride 0.9 % flush 3 mL (has no administration in time range) sodium chloride 0.9 % flush 3 mL (3 mL intravenous Given 04/08/232133) sodium chloride 0.9 % with KCl 20 mEq/L infusion (100 mL/hr intravenous New Bag 04/08/23 1015) heparin (porcine) injection 5,000 Units (5,000 Units subcutaneous Given 04/08/232131) levETIRAcetam (KEPPRA) IVPB 1500 mg/100 mL in iso-osmotic sodium chloride (15 mg/mL premix) (0 mg intravenous Stop Bag 04/08/23 1608) levETIRAcetam (KEPPRA) 2,000 mg in sodium chloride 0.9 % 120 mL IVPB (0 mg intravenous Stop Bag 04/08/23 2147) potassium chloride IVPB 10 mEq/100 mL in water (0.1 mEq/mL premix) (has no administration in time range) magnesium sulfate IVPB 4000 mg/100 mL in iso-osmotic water (40 mg/mL premix) (has no administration in time range) magnesium sulfate IVPB 2000 mg/50 mL in iso-osmotic water (40 mg/mL premix) (has no administration in time range) lacosamide (VIMPAT) 150 mg in sodium chloride 0.9 % 50 mL IVPB (150 mg intravenous New Bag 04/09/23 0302) sodium chloride 0.9 % flush 20 mL (20 mL intravenous Given 04/09/23 0100) And sodium chloride 0.9 % flush 20 mL (has no administration in time range) And sodium chloride 0.9 % flush 40 mL (has no administration in time range) Medication List Not reviewed during this visit * lamoTRIgine 200 mg tablet Refills: 0 Dose: 400 mg Commonly known as: LaMICtal Ask about: Which instructions should I use? * lamoTRIgine 200 mg tablet Refills: 0 Dose: 600 mg Commonly known as: LaMICtal Ask about: Which instructions should I use? * levETIRAcetam 750 mg tablet Refills: 0 Dose: 1,500 mg Commonly known as: KEPPRA Ask about: Which instructions should I use? * levETIRAcetam 1000 mg tablet Refills: 0 Dose: 2,000 mg Commonly known as: KEPPRA Ask about: Which instructions should I use? * primidone 250 mg tablet Refills: 0 Dose: 250 mg Commonly known as: MYSOLINE Ask about: Which instructions should I use? * primidone 250 mg tablet Refills: 0 Dose: 375 mg Commonly known as: MYSOLINE Ask about: Which instructions should I use? * This list has 6 medication(s) that are the same as other medications prescribed for you. Read the directions carefully, and ask your doctor or other care provider to review them with you. Diagnosis: 1. SBO (small bowel obstruction) ([facility]) 2. Seizure disorder ([facility]) Disposition: Patient's disposition: Admit Patient's condition is stable. Provider Statement By electronically signing this emergency patient record, the Emergency Physician/BREAKER UP/PA-C attests that all entries made into the electronic medical record by edgar Nolan prior to the Physician/BREAKER UP/PA-C signature reflect an accurate accounting of the evaluation and care rendered by that Emergency Physician/BREAKER UP/PA-C. The Emergency Physician/BREAKER UP/PA-C assumes full responsibility for those entries. The Emergency Physician/BREAKER UP/PA-C also attests that any patient testing or treatment that was instituted by nursing staff in accordance to Emergency Department Preemptive Guidelines have been reviewed and unless so stated elsewhere in this patient chart, the Physician/BREAKER UP/PA-C agrees with the testing and care provided. No Additional Attestations Conor Lord 04/08/23 0538 Deneen De Jesus MD 04/08/23 0539 Conor Lord 04/08/23 0549 Conor Lord 04/08/23 0557 Dorothy Lowery 04/08/23 0739 Dorothy Lowery 04/08/23 0743 Dorothy Lowery 04/08/23 0751 Deneen De Jesus MD 04/09/23 0303 Bed: 17 Expected date: Expected time: Means of arrival: [facility] Comments: Amol Taylor is a 68 year old male with MRDD with history of intussusception followed by multiple small bowel obstructions. Has small bowel obstruction on CT. Dr. Dave would like patient to ED to be evaluated, determination of medicine vs surgery admission. Nml vitals. WBC 12.9. Helmet on at baseline, teeth clacking. Hx of difficulty intubation reportedly. RN [id number] out NG 1 Emesis prior to placement USIV used for difficult stick Still need urine 113/71 69 96% RA Loading right now EMS: No symptoms at time 75hr 96% RA 109/51 ETA 5 min [facility] Note [id number] [facility] 01-10-2023 Note DISCHARGE SUMMARY [address] [address] AMOL TAYLOR Date of : 1955 67 Years Male Attending Date of Admission: 11/08/2022 Date of Discharge 11-11-2022 DIAGNOSES: Gastric pneumatosis PROCEDURES: Procedures No Procedures Documented DISCHARGE MEDICATIONS: DISCHARGE MEDICATIONS Medication List Active Medications Documented acetaminophen: 650 mg, Oral, q4hr, PRN: as needed for pain, 0 Refill(s). calcium carbonate: 500 mg, 1 tab(s), Chewed, BID, 15 tab(s), 0 Refill(s). carbamide peroxide otic: 4 drop(s), Otic, Bedtime, INSTILL 4 DROPS INTO BILATERAL EARS AT BEDTIME ONCE A MONTH THEN APPLY COTTON SWABS TO EARS, THEN IRRIGATE WITH ROOM TEMP H20 THEN NEXT MORNING., 15 mL, 0 Refill(s). cholecalciferol: 25 mcg, 1 tab(s), Oral, Daily, 0 Refill(s). diazepam: 12.5-20mg kit, Rectal, Once, PRN for seizure activity >15 minutes, 0 Refill(s). finasteride: 5 mg, 1 tab(s), Oral, Bedtime, 0 Refill(s). hydrocortisone topical: daily, Topical, BID, 0 Refill(s). hydrOXYzine: 25 mg, 1 tab(s), Oral, q12hr, PRN: as needed for itching, 0 Refill(s). lacosamide: 150 mg, 1 tab(s), Oral, BID, 0 Refill(s). lamotrigine: 600 mg, 3 tab(s), Oral, Bedtime, 0 Refill(s). lamotrigine: 400 mg, 2 tab(s), Oral, qAM, 0 Refill(s). latanoprost ophthalmic: 1 drop(s), Eye-Both, Bedtime, 0 Refill(s). levetiracetam: 2,000 mg, 2 tab(s), Oral, Bedtime, 0 Refill(s). levetiracetam: 1,500 mg, 2 tab(s), Oral, Daily, 0 Refill(s). lorazepam: 0.5 mg, 1 tab(s), Oral, q8hr, PRN: Other (see comment), 0 Refill(s). meclizine: 25 mg, 1 tab(s), Oral, q8hr, FOR DIZZINESS, PRN: Dizziness, 0 Refill(s). melatonin: 3 mg, 1 tab(s), Oral, Once a day (at bedtime), PRN: for insomnia. ondansetron: 4 mg, 1 tab(s), Oral, q6hr, PRN: Nausea/Vomiting, 0 Refill(s). oxybutynin: 10 mg, 1 tab(s), Oral, Daily, 0 Refill(s). pantoprazole: 40 mg, Oral, Daily, 0 Refill(s). polyethylene glycol 3350: 17 gm, Oral, Daily, 0 Refill(s). primidone: 375 mg, 1.5 tab(s), Oral, Once a day (at bedtime), 0 Refill(s). primidone: 250 mg, 1 tab(s), Oral, qAM, 0 Refill(s). senna: 8.6 mg, 1 tab(s), Oral, BID, 0 Refill(s). tamsulosin: 0.4 mg, 1 cap(s), Oral, BID, 0 Refill(s). trazodone: 50 mg, 1 tab(s), Oral, Bedtime, 0 Refill(s). Medications Inactivated in the Last 72 Hours No medications found. [use for patients going to inpatient rehab only, otherwise delete this list of meds] REASON FOR HOSPITALIZATION: Pneumatosis SIGNIFICANT FINDINGS: Catalog of Injuries Gastric pneumatosis HOSPITAL COURSE: 67-year-old male well-known to the general surgery team. He presents with multiple history of nausea vomiting. He has a history of multiple belly surgeries including a most recent retrorectus hernia repair with small bowel lysis of adhesions. He presents today for this recurrent nausea vomiting. CT findings were consistent with persistent possible gastric pneumatosis. He does complain of mild abdominal pain. He is admitted for monitoring and serial abdominal exams. On hospital day 1 his diet was advanced to clear liquid diet. On hospital day 2 he was advanced to regular diet with improvement in labs and no change in physical exam. He was deemed stable enough for discharge back to his alf. PE: General: alert, no acute distress, ENMT: Moist mucous membranes. Cardiovascular: regular rate and rhythm, normal peripheral perfusion Respiratory: No audible wheezes or rhonchi Abdomen: Soft, nontender, nondistended. Extremities: no deformity, no trauma Neurological: oriented x 4, LOC appropriate for age, CN II-XII intact, motor strength equal & normal bilaterally, sensation equal & normal bilaterally, speech normal ANTICIPATED FOLLOW UP: Follow-up with general surgery as needed VTE RISK AT DISCHARGE: Per trauma program protocol, the patient does not require DVT prophylaxis upon discharge Edilma Rivera DO Trauma, Critical Care, & Acute Care Surgery >30 minutes was spent on the discharge of this patient including final examination of the patient, discussion of the hospital stay, instructions for continuing care to all relevant caregivers, preparation of discharge records, prescriptions and referral forms, and clear identification of reasons to return to clinic or to emergency room. [facility] Comment on above: Result Comment: Elec tronically Signed By: Miguel FRIAS, Melchor France\.br\Date and Time Signed: 01/10/23 13:49 EST 11-11-2022 Hospital Discharge instructions Patient Education 11/11/2022 10:19:16 Bowel Obstruction Bowel Obstruction A bowel obstruction is a blockage in the small or large bowel. The bowel is also called the intestine. It is a long tube that connects the stomach to the anus. When a person eats and drinks, food and fluids go from the mouth to the stomach to the small bowel. This is where most of the nutrients in the food and fluids are absorbed. After the small bowel, material passes through the large bowel for further absorption until any leftover material leaves the body as stool (feces) through the anus during a bowel movement. A bowel obstruction will prevent food and fluids from passing through the bowel as they normally do during digestion. The bowel can become partially or completely blocked. If this condition is not treated, it can be dangerous because the bowel could rupture. What are the causes? Common causes of this condition include: Scar tissue in the body (adhesions) from previous surgery or treatment with high-energy X-rays (radiation). Recent surgery. This may cause the movements of the bowel to slow down and cause food to block the intestine. Inflammatory bowel disease, such as Crohn's disease or diverticulitis. Growths or tumors. A bulging organ or tissue (hernia). Twisting of the bowel (volvulus). A swallowed object (foreign body). Slipping of a part of the bowel into another part (intussusception). What are the signs or symptoms? Symptoms of this condition include: Pain in the abdomen. Depending on the degree of obstruction, pain may be: ?Mild or severe. ?Dull cramping or sharp pain. ?In one area or in the entire abdomen. Nausea and vomiting. Vomit may be greenish or a yellow bile color. Bloating in the abdomen. Constipation. Being unable to pass gas. Frequent belching. Diarrhea. This may occur if the obstruction is partial and runny stool is able to leak around the obstruction. How is this diagnosed? This condition may be diagnosed based on: A physical exam. Your medical history. Exams to look into the small intestine or the large intestine (endoscopy or colonoscopy). Imaging tests of the abdomen or pelvis, such as X-ray or CT scan. Blood or urine tests. How is this treated? Treatment for this condition depends on the cause and severity of the problem. Treatment may include: Fluids and pain medicines that are given through an IV. Your health care provider may tell you not to eat or drink if you have nausea or vomiting. A clear liquid diet. You may be asked to consume a clear liquid diet for several days. This allows the bowel to rest. Placement of a small tube (nasogastric tube) through the nose, down the throat, and into the stomach. This may relieve pain, discomfort, and nausea by removing blocked air and fluids from the stomach. It can also help the obstruction clear up faster. Surgery. This may be required if other treatments do not work. Surgery may be required for: ?Bowel obstruction from a hernia. This can be an emergency procedure. ?Scar tissue that causes frequent or severe obstructions. Follow these instructions at home: Medicines Take hubt-qep-pizlzvs and prescription medicines only as told by your health care provider. If you were prescribed an antibiotic medicine, take it as told by your health care provider. Do not stop taking the antibiotic even if you start to feel better. General instructions Follow instructions from your health care provider about eating and drinking restrictions. You may need to avoid solid foods and drink only clear liquids until your condition improves. Return to your normal activities as told by your health care provider. Ask your health care provider what activities are safe for you. Rest as told by your health care provider. Avoid sitting for a long time without moving. Get up to take short walks every 1 2 hours. This is important to improve blood flow and breathing. Ask for help if you feel weak or unsteady. Keep all follow-up visits. This is important. How is this prevented? After having a bowel obstruction, you are more likely to have another. You may do the following things to prevent another obstruction: If you have a long-term (chronic) disease, pay attention to your symptoms and contact your health care provider if you have questions or concerns. Avoid becoming constipated. You may need to take these actions to prevent or treat constipation: ?Drink enough fluid to keep your urine pale yellow. ?Take obfv-nvz-pkuotxy or prescription medicines. ?Eat foods that are high in fiber, such as beans, whole grains, and fresh fruits and vegetables. ?Limit foods that are high in fat and processed sugars, such as fried or sweet foods. Stay active. Exercise for 30 minutes or more, 5 or more days each week. Ask your health care provider which exercises are safe for you. Avoid stress. Find ways to reduce stress, such as meditation, exercise, or taking time for activities that relax you. Instead of eating three large meals each day, eat three small meals with three small snacks. Work with a dietitian to make a healthy meal plan that works for you. Do not use any products that contain nicotine or tobacco. These products include cigarettes, chewing tobacco, and vaping devices, such as e-cigarettes. If you need help quitting, ask your health care provider. Contact a health care provider if: You have a fever. You have chills. Get help right away if: You have increased pain or cramping. You vomit blood. You have uncontrolled vomiting or nausea. You cannot drink fluids because of vomiting or pain. You become confused. You begin feeling very thirsty (dehydrated). You have severe bloating. You feel extremely weak or you faint. Summary A bowel obstruction is a blockage in the small or large bowel. A bowel obstruction will prevent food and fluids from passing through the bowel as they normally do during digestion. Treatment for this condition depends on the cause and severity of the problem. It may include fluids and pain medicines through an IV, a simple diet, a nasogastric tube, or surgery. Follow instructions from your health care provider about eating restrictions. You may need to avoid solid foods and consume only clear liquids until your condition improves. This information is not intended to replace advice given to you by your health care provider. Make sure you discuss any questions you have with your health care provider. Document Revised: 04/03/2021 Document Reviewed: 04/03/2021 [employer] Patient Education 2022 [employer]. Follow Up Care 11/08/2022 08:52:02 With:EDIL MOELLER, [facility] Address: [address] [place] [address] When: Unknown [facility] 11-08-2022 Note Chief Complaint Nausea and Vomiting History of Present Illness This is a 67-year-old male that presents with a multiple day history of nausea vomiting. He is well-known to the general surgery service and status post retrorectus repair of a large ventral hernia with lysis of adhesions due to recurrent bowel obstructions. He has recently been admitted to the hospital with bowel dysmotility and nausea vomiting. His CT scan and this presentation with concern for pneumatosis on his gastric wall. He reports multiple episodes of vomiting recently. He cannot last time he passed gas. He cannot rule ostomy and a bowel movement. History is limited due to the patient's mental limitations. Review of Systems Constitutional: no fever, no chills, no sweats, no weakness Skin: no Jaundice, no rash, no lesions, nopetechiae ENMT: no ear pain, no sore throat, no congestion, no hoarseness Respiratory: no shortness of breath, no cough, no orthopnea, no wheezing Cardiovascular: no chest pain, no palpitations, no edema Gastrointestinal: no nausea, no vomiting, no diarrhea, no GI bleeding Genitourinary: no dysuria, no hematuria, no discharge, no pain Musculoskeletal: no back pain, no trauma Neurologic: no headache, no dizziness, no numbness, no weakness Psychiatric: no sleeping problems, no irritability, no mood swings/depression. Heme/Lymph: no bleeding tendency, no bruising tendency, no petechiae, no swollen nodes Allergy/Immunologic: no seasonal allergies, no food allergies, no recurrent infections, no impaired immunity Additional ROS info: Except as noted in the above Review of Systems and in the History of Present Illness all other systems have been reviewed and are negative or noncontributory. Scoring [place] Fall Risk Score: 55 High (11/08/22) Physical Exam Vitals & Measurements T: 36.3 ?C(Oral) TMIN: 36.3 ?C(Oral) TMAX: 36.5 ?C(Oral) HR: 84(Apical) RR: 16 BP: 104/69 SpO2: 97% HT: 157 cm WT: 79.3 kg General: alert, no acute distress, fatigued Skin: warm, dry Head: no trauma, normocephalic Neck: Trachea midline, no adenopathy, no tenderness Eye: normal conjunctiva, sclera clear ENMT: Dry mucous membranes, normal sclera Cardiovascular: Regular rate Respiratory: No audible wheezes or rhonchi. Coarse breath sounds Chest wall: no deformity. Gastrointestinal: Soft, mildly distended, no rigidity peritonitis or guarding. Back: No tenderness, Normal ROM, Normal alignment. Extremities: Mild bilateral lower extremity edema Neurological: oriented x 4, LOC appropriate for age, CN II-XII intact, motor strength equal & normal bilaterally, sensation equal & normal bilaterally, speech normal Psychiatric: cooperative, affect appropriate for age, normal judgement, normal psychiatric thoughts. Lab Results WBC: 13.3 E9/L High (11/08/22 09:35:00) RBC: 4.5 E12/L (11/08/22 09:35:00) HGB: 14.2 gm/dL (11/08/22 09:35:00) Hct: 42.9 % (11/08/22:35:00) MCV: 96.2 fL (11/08/22:35:00) MCH: 31.9 pg (11/08/22:35:00) MCHC: 33.2 gm/dL (11/08/22:35:00) RDW: 13.5 % (11/08/22:35:00) Platelet: 193 E9/L (11/08/22:35:00) MPV: 8.4 fL (11/08/22:35:00) Neutro Auto: 83.8 % High (11/08/22 09:35:00) Lymph Auto: 9.8 % Low (11/08/22:35:00) [place] Auto: 6.2 % (11/08/22:35:00) Eos Auto: 0.1 % (11/08/22:35:00) Basophil Auto: 0.1 % (11/08/22:35:00) Neutro Absolute: 11.1 E9/L High (11/08/22:35:00) Lymph Absolute: 1.3 E9/L (11/08/22:35:00) [place] Absolute: 0.8 E9/L (11/08/22:35:00) Eos Absolute: 0 E9/L (11/08/22:35:00) Basophil Absolute: 0 E9/L (11/08/22:35:00) Glucose Lvl: 121 mg/dL (11/08/22 09:35:00) BUN: 37 mg/dL High (11/08/22 09:35:00) Creatinine: 1.6 mg/dL High (11/08/22 09:35:00) eGFR: 47 mL/min/1.73 m2 Low (11/08/22 09:35:00) BUN/Creat Ratio: 23 High (11/08/22 09:35:00) Sodium Lvl: 138 mmol/L (11/08/22 09:35:00) Potassium Lvl: 3.4 mmol/L Low (11/08/22 09:35:00) Chloride: 99 mmol/L Low (11/08/22 09:35:00) CO2: 27 mmol/L (11/08/22 09:35:00) AGAP: 15 mEq/L (11/08/22 09:35:00) Calcium Lvl: 9.8 mg/dL (11/08/22 09:35:00) Alk Phos: 115 Int._Unit/L High (11/08/22 09:35:00) ALT: 21 Int._Unit/L (11/08/22 09:35:00) AST: 22 Int._Unit/L (11/08/22 09:35:00) Total Protein: 8.4 gm/dL High (11/08/22 09:35:00) Albumin Lvl: 4.4 gm/dL (11/08/22 09:35:00) Globulin: 4 gm/dL (11/08/22 09:35:00) A/G Ratio: 1.1 (11/08/22 09:35:00) Bili Total: 0.7 mg/dL (11/08/22 09:35:00) Bili Direct: 0.2 mg/dL (11/08/22 09:35:00) Bili Indirect: 0.5 mg/dL (11/08/22 09:35:00) Lipase Lvl: 33 unit/L (11/08/22 09:35:00) Assessment/Plan Acute diarrhea (R19.7: Diarrhea, unspecified) Acute vomiting (R11.10: Vomiting, unspecified) JOSÉ MIGUEL (acute kidney injury) (N17.9: Acute kidney failure, unspecified) Patient has multiple episodes of possible small bowel obstruction which are likely more related to his intestinal dysmotility. We will continue to monitor and evaluation for possible diagnostic laparoscopy in the fu (more content not included)... [facility] Comment on above: Result Comment: Elec tronically Signed By: Melchor Rivera DO\.br\Date and Time Signed: 11/08/22 16:13 EDT 11-08-2022 Evaluation + Plan note Extrac louise from: Title:Admission H & P Author:Melchor Rivera DO Date:11/08/22 Acute diarrhea (R19.7: Diarr hea, unspecified) Acute vomiting (R11.10: Vomiting, unspecified) JOSÉ MIGUEL (acute kidney injury) (N17.9: Acute kidney failure, unspecified) Patient has multiple episodes of possible small bowel obstruction which are likely more related to his intestinal dysmotility. We will continue to monitor and evaluation for possible diagnostic laparoscopy in the future. We will keep n.p.o. at this time for gastric pneumatosis which is limited based on his CT scan. We will still LR at 100 cc an hour for the patient's elevated creatinine. We will continue to monitor with serial exams. N.p.o. at this time except for medications. We will continue his home antiseizure medications. Heparin 5000 3 times daily for DVT prophylaxis Extracted from: Title:ED Note Author:Hair Landa DO Date: Acute diarrhea (R19.7: Diarr hea, unspecified) Acute vomiting (R11.10: Vomiting, unspecified) JOSÉ MIGUEL (acute kidney injury) (N17.9: Acute kidney failure, unspecified) Orders: lorazepam, 0.5 mg = 0.25 mL, Injection, IV Push, Once, Stop date 11/08/22 10:00:00 EDT, Routine, Start date 11/08/22 10:00:00 EDT, 11/08/22 9:22:00 EDT ondansetron, 4 mg = 2 mL, Injection, IV Push, Once, Stop date 11/08/22 9:18:00 EDT, STAT, Start date 11/08/22 9:18:00 EDT, 11/08/22 9:18:00 EDT Sodium Chloride 0.9% intravenous solution 1,000 mL, 1,000 mL, IV, 999 mL/hr, STAT, Start date 11/08/22 9:18:00 EDT, 1 hour(s), Total volume (mL): 1,000, 76.2 kg, 1.82, m2 Automated Diff Basic Metabolic Panel CBC w/ Auto Diff CT Abdomen/Pelvis w/ Contrast ECG 12 Lead Adult ED Cardiac Monitoring eGFR Hepatic Function Panel Lipase Level Saline Lock Insert UA With Cult Reflex Future Appointments Appointment Date:11/17/2022 10:30:00 AM Scheduled [facility] Type:Trauma Subsequent Follow Up (FT) Appointment Date:02/16/2023 10:15:00 AM Scheduled Provider:Yasmani CAMARA MD Location:[facility] Appointment Type:URO Office Visit [facility]07-06-2023 History of Present illness Narrative* Carlie Sanchez RN - 09/07/2022 4:55 PM EDT Patient discharged, via wheelchair, to alf van with crew manager at this time. All belongings and patient information packet in hand. * Carlie Sanchez RN - 09/07/2022 3:55 PM EDT Parking Enforcement Specialist and [employer] project manager, called report to Laura at alf at this time. All questions answered, callback number given in case of further questions. Will continue to monitor. * Shawn Llamas PTA - 09/07/2022 3:29 PM EDT Physical Therapy Facility/Department: [facility] Daily Treatment Note NAME: Amol Taylor : 1955 Date of Service: 09/07/2022 Discharge Recommendations: Continue to assess pending progress Patient Diagnosis(es): The encounter diagnosis was Small bowel obstruction (HCC). Assessment Assessment: Seated ther-ex completed this session with fair tolerance but max v/c and tactile cues needed to stay on task. Per nursing Pt is to go back to alf this afternoon. Activity Tolerance: Treatment limited secondary to decreased cognition Plan Restrictions Restrictions/Precautions Restrictions/Precautions: Fall Risk, General Precautions Subjective Subjective Subjective: Pt in chair upon room entry agreeable to PT. No pain reported. Pain: denies pain complaint Orientation Overall Orientation Status: Impaired Orientation Level: Oriented to person Cognition Overall Cognitive Status: Exceptions Cognition Comment: patient needing verbal and tactile cues to complete all tasks, decreased safety,unable to talk FWW during SPT Objective Vitals Bed Mobility Training Bed Mobility Training: Yes (decrease safety awareness) Overall Level of Assistance: Assist X2;Moderate assistance Interventions: Tactile cues;Verbal cues Rolling: Assist X2;Minimum assistance;Moderate assistance Supine to Sit: Assist X2;Maximum assistance (pt attempting to lay back during sitting) Scooting: Moderate assistance;Assist X2 Balance Sitting: With support Standing: Impaired Standing - Static: Poor Standing - Dynamic: Poor Transfer Training Transfer Training: Yes Overall Level of Assistance: Moderate assistance;Assist X2 Interventions: Safety awareness training;Verbal cues;Manual cues;Visual cues;Tactile cues Sit to Stand: Moderate assistance;Assist X2 Stand to Sit: Moderate assistance;Assist X2 Stand Pivot Transfers: Moderate assistance;Assist X2 Bed to Chair: Moderate assistance;Assist X2 Gait Training Gait Training: No Neuromuscular Education Neuromuscular Education: No PT Exercises Exercise Treatment: seated ex 20x ea with v/c and tactile d/t poor comprehension. (heel slide, SAQ,SLR, hip ABD, ankle pumps) Safety Devices Type of Devices: All fall risk precautions in place;Call light within reach;Chair alarm in place;Nurse notified;Patient at risk for falls;Left in chair Goals Short Term Goals Time Frame for Short Term Goals: 20 days Short Term Goal 1: Pt to be CGA with RW for tranfsers to improve functional mobility and safety of transfers Short Term Goal 2: Pt to be able to tolerate 20-30 mins therex/act to improve functional capacity for ADLs Short Term Goal 3: Pt to be SUP with bed mobility to improve safety and independence of care tasks. Education Benefits of exercise Therapy Time Individual Concurrent Group Co-treatment Time In 1500 Time Out 1512 Minutes 12 Shawn Llamas PTA * KRYSTIN Farley - 09/07/2022 2:30 PM EDT Patient is discharge back to alf today. The guardian aware of the discharge. [facility] aware of discharge and will provide the transportation. KRYSTIN Farley * Roque OrtegaSHANTI - 09/07/2022 10:45 AM EDT Occupational Therapy Facility/Department: [facility] Daily Treatment Note NAME: Amol Taylor : 1955 Date of Service: 09/07/2022 Discharge Recommendations: Continue to assess pending progress Patient Diagnosis(es): The encounter diagnosis was Small bowel obstruction (HCC). Assessment Activity Tolerance: Treatment limited secondary to decreased cognition Discharge Recommendations: Continue to assess pending progress Plan Occupational Therapy Plan Times Per Week: 7x/wk Current Treatment Recommendations: Strengthening;Functional mobility training;Safety education & training;Balance training;Self-Care / ADL Restrictions General Fall Risk, Decreased safety awareness Subjective Subjective Subjective: Pt supine in bed, sleeping, agreeable to transfer to recliner. max visual and verbal cues needed Pain: denying pain, no indication of pain during transfer. Orientation Overall Orientation Status: Impaired Orientation Level: Oriented to person (able to say he was in hospital, unable to state what hospital) Pain: denies pain complaint Cognition Overall Cognitive Status: Exceptions Cognition Comment: patient needing verbal and tactile cues to complete all tasks, decreased safety,unable to talk FWW during SPT Objective Vitals Bed Mobility Training Bed Mobility Training: Yes (decrease safety awareness) Overall Level of Assistance: Assist X2;Moderate assistance Interventions: Tactile cues;Verbal cues Rolling: Assist X2;Minimum assistance;Moderate assistance Supine to Sit: Assist X2;Maximum assistance (pt attempting to lay back during sitting) Scooting: Moderate assistance;Assist X2 Balance Sitting: With support Standing: Impaired Standing - Static: Poor Standing - Dynamic: Poor Transfer Training Transfer Training: Yes Overall Level of Assistance: Moderate assistance;Assist X2 Interventions: Safety awareness training;Verbal cues;Manual cues;Visual cues;Tactile cues Sit to Stand: Moderate assistance;Assist X2 Stand to Sit: Moderate assistance;Assist X2 Stand Pivot Transfers: Moderate assistance;Assist X2 Bed to Chair: Moderate assistance;Assist X2 Gait Training Gait Training: No OT Exercises Exercise Treatment: Pt completed BUE AROM exercises in bedside chair x 4 planes x 1 set x 15 reps, tactile cues and verbal cues needed to complete. Safety Devices Type of Devices: All fall risk precautions in place;Call light within reach;Chair alarm in place;Left in chair;Nurse notified;Patient at risk for falls (nursing made aware of chair alarm. Chair alarmconnected to patient's gown.) Patient Education Education Given To: Patient Education Provided: Role of Therapy;Plan of Care;Transfer Training;Orientation Education Method: Demonstration;Verbal Barriers to Learning: Cognition Education Outcome: Continued education needed Goals Short Term Goals Time Frame for Short Term Goals: 20 visits Short Term Goal 1: Pt. will tolerate 15 mins of BUE ther ex to increase strength for self care tasks. Short Term Goal 2: Pt. will engage in simple UB/grooming ADL's to increase (I). Short Term Goal 3: Pt. will tolerate sitting EOB while maintaining G balance to increase (I) with bedside ADL's. Short Term Goal 4: Pt. will demo standing tolerance x 2 mins with support and w/o LOB to increase safety/participation with ADL's. Therapy Time Individual Concurrent Group Co-treatment Time In 903 Time Out 921 Minutes 18 SHANTI Rudd * Luz Marina Durand MD - 09/07/2022 10:34 AM EDT Hospital day #5 Patient continues to deny abdominal pain and he has had several bowel movements His vital signs are stable he is afebrile Chest clear to auscultation percussion Cardiovascular regular rate and rhythm Abdomen is soft without tenderness no guarding or rebound Abdominal films show a continued decrease and small bowel and large bowel dilatation though his x-rays continue to be grossly abnormal Laboratories within normal limits Assessment plan continued observation of patient with an adynamic ileus most likely this most likely associated with the conglomeration of medications that he takes on an outpatient basis until thesecan be modified I suspect that the patient will have recurrent visits to the hospital no anticipated surgical intervention of this time surgery is going to sign off the case * Shoshana Yo PTA - 09/07/2022 9:45 AM EDT Physical Therapy Facility/Department: [facility] Daily Treatment Note NAME: Amol Taylor DOB: 1955 Date of Service: 09/07/2022 Discharge Recommendations: Continue to assess pending progress Patient Diagnosis(es): The encounter diagnosis was Small bowel obstruction (HCC). Assessment Assessment: Ther-ex: initiated EOB exercise with poor comprehension causing retro LOB, unable to self correct. Bed mobility: MOD x2 with cues for positional changes. Pt requires constant support to stay upright. Pt impulsive with bed to chair transfer. Transfers: MOD x2 with cues to complete transfer to chair before sitting, unable to follow through. Pt demo's poor eccentric control with sitting. Activity Tolerance: Treatment limited secondary to decreased cognition Plan Restrictions Restrictions/Precautions Restrictions/Precautions: Fall Risk, General Precautions Subjective Subjective Subjective: pt in bed upon arrival, agreeable to therapy. Pain: denies pain complaint Orientation Overall Orientation Status: Impaired Cognition Overall Cognitive Status: Exceptions Objective Bed Mobility Training Bed Mobility Training: Yes Overall Level of Assistance: Assist X2;Moderate assistance Interventions: Tactile cues;Verbal cues Rolling: Assist X2;Maximum assistance Supine to Sit: Assist X2;Moderate assistance Scooting: Moderate assistance;Assist X2 Balance Sitting: With support Standing: Impaired Standing - Static: Poor Standing - Dynamic: Poor Transfer Training Transfer Training: Yes Overall Level of Assistance: Moderate assistance;Assist X2 Interventions: Safety awareness training;Verbal cues;Manual cues Sit to Stand: Moderate assistance;Assist X2 Stand to Sit: Moderate assistance;Assist X2 Stand Pivot Transfers: Moderate assistance;Assist X2 Bed to Chair: Moderate assistance;Assist X2 Gait Training Gait Training: No Neuromuscular Education Neuromuscular Education: No PT Exercises Exercise Treatment: initiated EOB exercise with poor comprehension causing retro LOB, unable to self correct. Safety Devices Type of Devices: All fall risk precautions in place;Call light within reach;Chair alarm in place;Left in chair;Nurse notified;Patient at risk for falls Goals Short Term Goals Time Frame for Short Term Goals: 20 days Short Term Goal 1: Pt to be CGA with RW for tranfsers to improve functional mobility and safety of transfers Short Term Goal 2: Pt to be able to tolerate 20-30 mins therex/act to improve functional capacity for ADLs Short Term Goal 3: Pt to be SUP with bed mobility to improve safety and independence of care tasks. Education Patient Education Education Given To: Patient Education Provided: Role of Therapy;Plan of Care Education Method: Verbal Barriers to Learning: Cognition Education Outcome: Continued education needed Therapy Time Individual Concurrent Group Co-treatment Time In 903 Time Out 0922 Minutes 18 Shoshana Yo PTA * Carlie Sanchez RN - 09/07/2022 7:45 AM EDT Patient alert, oriented to self and place, disoriented to time and situation, calm and cooperative.Assessment and vital signs completed, see flowsheet. Patient denies any pain at this time. Lungs sounds rhonchi throughout bilaterally with expiratory grunting, inspiratory wheezes heard in upper right lung. Cough is congested, moist, and productive. Pt complies with instruction to cough to clear congestion, pt swallows sputum. HR 58, intermittent bradycardia, regular. Abdomen is soft and nontender per pt, bowel sounds active in all four quadrants. Pt has had 4 incontinent bowel movements in the last 24 hours. Trace edema present in BLE, pitting in LLE. Patient resting in bed, call light within reach, denies further needs, will continue to monitor. * Marcia Whitehead RN - 09/06/2022 4:20 PM EDT I call his legal guardian Susna concerning Amol's code status. She tells me that she has been thinking about it and she needs to talk with her brother about changing it possibly. I tell her we will follow her about it. Shae Whitehead RN [facility] oscar Russo Palliative Care Nurse Coordinator 09/07/2022 7:36 AM * Luz Marina Durand MD - 09/06/2022 2:44 PM EDT Hospital day #4 Patient continues to have bowel movements and his radiographic picture of ileus continues to evolvein a positive way Vital signs are stable he is afebrile Chest clear Cardiovascular regular rate and rhythm Abdomen soft without apparent tenderness bowel sounds are present Musculoskeletal negative [facility] White count 6.9 Abdominal x-ray continues to show multiple air-fluid levels with dilation of large and small bowel which is improved over the previous days films Assessment plan patient's adynamic ileus continues to improve radiographically I would continue with the present regimen and repeat an abdominal film in the a.m. * SHANTI Camacho - 09/06/2022 12:26 PM EDT Occupational Therapy Facility/Department: [facility] Daily Treatment Note NAME: Amol Taylor : 1955 Date of Service: 09/06/2022 Discharge Recommendations: Continue to assess pending progress Patient Diagnosis(es): The encounter diagnosis was Small bowel obstruction (HCC). Assessment Activity Tolerance: Treatment limited secondary to decreased cognition Discharge Recommendations: Continue to assess pending progress Plan Occupational Therapy Plan Times Per Week: 7x/wk Times Per Day: Once a day Current Treatment Recommendations: Strengthening;Functional mobility training;Safety education & training;Balance training;Self-Care / ADL Restrictions General, fall risk Subjective Subjective Subjective: Pt up in recliner, agreeable to BUE therex. Pt requried Max tastile and VCs for initiation and attention to task. Pain: denied, no indications Orientation: impaired Objective Vitals OT Exercises Exercise Treatment: Pt participated in BUE therex to increase strength/endurance for ease of fxl task. green digiflex x 5-10, yellow flex bar bends x 5-10 and 1# free weight x 5-10 reps overhead press, chest press, elbow and wrist curls and stir the pot. Pt required tactile and VCs with P return mostly. Pt ended session by handing weights to clinician and stating done. Safety Devices Type of Devices: All fall risk precautions in place;Call light within reach;Chair alarm in place;Left in chair;Nurse notified Patient Education Education Given To: Patient Education Provided: Role of Therapy;Plan of Care;Home Exercise Program Education Method: Demonstration;Verbal ([place], tactile cueing) Barriers to Learning: Cognition Education Outcome: Continued education needed (P return) Goals Short Term Goals Time Frame for Short Term Goals: 20 visits Short Term Goal 1: Pt. will tolerate 15 mins of BUE ther ex to increase strength for self care tasks. Short Term Goal 2: Pt. will engage in simple UB/grooming ADL's to increase (I). Short Term Goal 3: Pt. will tolerate sitting EOB while maintaining G balance to increase (I) with bedside ADL's. Short Term Goal 4: Pt. will demo standing tolerance x 2 mins with support and w/o LOB to increase safety/participation with ADL's. Therapy Time Individual Concurrent Group Co-treatment Time In 1152 Time Out 1201 Minutes 9 SHANTI Camacho * Rinku Montalvo RD, LD - 09/06/2022 12:19 PM EDT Malnutrition Assessment: Malnutrition Status: Mild malnutrition (09/06/22 1215) Context: Acute Illness Findings of the 6 clinical characteristics of malnutrition: Energy Intake: Mild decrease in energy intake (Comment) (at least acutely) Weight Loss: Greater than 5% over 1 month Body Fat Loss: No significant body fat loss Muscle Mass Loss: No significant muscle mass loss Fluid Accumulation: Mild Extremities Line Service Technician Strength: Not Performed Electronically signed by Rinku Montalvo RDN, LD 09/06/2022, 12:20 PM * Ramandeep Coffey PTA - 09/06/2022 9:33 AM EDT Physical Therapy Facility/Department: [facility] Daily Treatment Note NAME: Amol Taylor : 1955 Date of Service: 09/06/2022 Discharge Recommendations: Continue to assess pending progress Patient Diagnosis(es): The encounter diagnosis was Small bowel obstruction (HCC). Assessment Assessment: Ther-ex: seated BLE x15 in all planes with mod vc's for technique with fair carryover. Bed Mobs: Mod x2 with max vc's to complete with correct sequence. Pt requried constant support to stay upright at EOB. Transfers: Mod x2 with constant vc's for direction, pt tried to sit down during stand pivot transfer, gave tactile and verbal ques to correct, pt plopped into chair at end of transfer. Activity Tolerance: Treatment limited secondary to decreased cognition Plan Physcial Therapy Plan General Plan: (1x/day on weekends and holidays) Current Treatment Recommendations: Strengthening;ROM;Balance training;Functional mobility training;Transfer training;Endurance training;Neuromuscular re- education;Home exercise program;Positioning;Therapeutic activities Restrictions Restrictions/Precautions Restrictions/Precautions: Fall Risk, General Precautions Subjective Subjective Subjective: pt in bed upon arrival, nursing present, agreeable to therapy Pain: denies pain complaint Orientation Overall Orientation Status: Impaired Orientation Level: Oriented to person Objective Bed Mobility Training Bed Mobility Training: Yes Overall Level of Assistance: Assist X2;Moderate assistance Interventions: Tactile cues;Verbal cues Supine to Sit: Assist X2;Moderate assistance Scooting: Moderate assistance;Assist X2 Balance Sitting: With support Standing: Impaired Standing - Static: Poor Standing - Dynamic: Poor Transfer Training Transfer Training: Yes Overall Level of Assistance: Moderate assistance;Assist X2 Interventions: Safety awareness training;Verbal cues;Manual cues Sit to Stand: Moderate assistance;Assist X2 Stand to Sit: Moderate assistance;Assist X2 Stand Pivot Transfers: Moderate assistance;Assist X2 Bed to Chair: Moderate assistance;Assist X2 PT Exercises Exercise Treatment: Seated BLE x15 in all planes Safety Devices Type of Devices: Bed alarm in place;Call light within reach;Nurse notified;Chair alarm in place;Left in chair Goals Short Term Goals Time Frame for Short Term Goals: 20 days Short Term Goal 1: Pt to be CGA with RW for tranfsers to improve functional mobility and safety of transfers Short Term Goal 2: Pt to be able to tolerate 20-30 mins therex/act to improve functional capacity for ADLs Short Term Goal 3: Pt to be SUP with bed mobility to improve safety and independence of care tasks. Education Patient Education Education Given To: Patient Education Provided: Role of Therapy;Plan of Care Education Method: Verbal Barriers to Learning: Cognition Education Outcome: Continued education needed Therapy Time Individual Concurrent Group Co-treatment Time In 901 Time Out 0916 Minutes 14 Ramandeep Coffey PTA * Lyla Zepeda MD - 09/06/2022 9:15 AM EDT Images from the original note were not included. [address] , [place], [place], [address] Attestation Patient: Amol Taylor Date of Admission: 09/02/2022 5:58 PM Hospital Day # 4 Date of Evaluation: 09/06/2022 I personally evaluated and examined the patient [id number] in conjunction with the PA/BREAKER UP and agree with the management and dispostition of the patient. Please see the PA/BREAKER UP's note for full details.My gee findings are: SUBJECTIVE: Patient seen for follow up of SBO (small bowel obstruction) ([facility]). Patient seen and examined at thebed side , no new acute events overnight and no new complains. He feels he is doing alright today. No n/v, passing gas and having BM's. Notes from nursing staff and Consults had been reviewed, and the overnight progress had been checked with the nursing staff as well. OBJECTIVE: Vitals: Temp: 98.2 F (36.8 C) BP: (!) 109/56 Respirations: 18 Pulse: 81 SpO2: 95 % Weight Wt Readings from Last 3 Encounters: 09/06/22 177 lb 4 oz (80.4 kg) 06/23/22 182 lb (82.6 kg) 06/15/22 182 lb 15.7 oz (83 kg) Body mass index is 29.5 kg/m . 24HR INTAKE/OUTPUT: Intake/Output Summary (Last 24 hours) at 09/06/2022 1725 Last data filed at 09/06/2022 1321 Gross per 24 hour Intake 1532.63 ml Output -- Net 1532.63 ml Exam: GEN: Awake, alert and oriented x3. EYES: EOMI, pupils equal NECK: Supple. No lymphadenopathy. No carotid bruit CVS: regular rate and rhythm, no audible murmur PULM: CTA, no wheezes, rales or rhonchi, no acute respiratory distress ABD: Bowels sounds normal. Abdomen is soft. No distention. no tenderness to palpation. EXT: no edema bilaterally . No calf tenderness. NEURO: Moves all extremities. Motor and sensory are grossly intact SKIN: No rashes. No skin lesions. DATA: Complete Blood Count: Recent Labs 09/04/22 0550 09/05/22 0535 09/06/22414 WBC 12.8* 12.1* 6.9 RBC 3.39* 3.21* 2.97* HGB 11.1* 10.5* 9.8* HCT 33.4* 32.0* 29.8* MCV 98.5 99.7 100.3 RDW 13.2 13.0 12.7 PLT 170 147 132* Recent Labs 09/04/22 0550 09/05/22 0535 09/06/22414 SEGS 79* 80* 69* NEUTROABS 10.07* 9.62* 4.79 LYMPHOPCT 13* 11* 20* LYMPHSABS 1.71 1.34 1.36 MONOPCT 7 8 9 EOSRELPCT 0* 0* 2 BASOPCT 1 0 1 IMMGRAN 0 0 0 CMP: Lab Results Component Value Date GLUCOSE 84 09/06/2022 BUN 19 09/06/2022 CREATININE 0.68 (L) 09/06/2022 NA 142 09/06/2022 K 3.6 (L) 09/06/2022 CALCIUM 8.3 (L) 09/06/2022 CL 108 (H) 09/06/2022 CO2 25 09/06/2022 PROT 6.5 09/06/2022 LABALBU 3.2 (L) 09/06/2022 BILITOT 0.7 09/06/2022 ALKPHOS 91 09/06/2022 ALT 16 09/06/2022 AST 20 09/06/2022 UA: Lab Results Component Value Date COLORU Yellow 06/12/2022 SPECGRAV 1.010 06/12/2022 WBCUA 2 TO 5 06/12/2022 RBCUA 0 TO 2 06/12/2022 EPITHUA 0 TO 2 06/12/2022 LEUKOCYTESUR TRACE (A) 06/12/2022 GLUCOSEU NEGATIVE 06/12/2022 KETUA NEGATIVE 06/12/2022 PROTEINU NEGATIVE 06/12/2022 HGBUR NEGATIVE 06/12/2022 CASTUA NOT REPORTED 12/05/2018 CRYSTUA NOT REPORTED 12/05/2018 BACTERIA 2+ (A) 06/12/2022 YEAST NOT REPORTED 12/05/2018 Lactic Acid: Lab Results Component Value Date/Time LACTA 1.3 09/02/2022 07:35 PM LACTA 1.3 06/21/2022 12:30 PM LACTA 1.5 05/08/2022 11:30 PM High Sensitivity Troponin: No results for input(s): TROPHS in the last 72 hours. Radiology/Imaging: XR ABDOMEN (KUB) (SINGLE AP VIEW) Final Result Improving/resolving small bowel obstruction XR ABDOMEN (2 VIEWS) Final Result 1. Persistent small bowel obstruction. XR ABDOMEN (2 VIEWS) Final Result No change in gaseous distension in the intestinal tract. NG tube terminates in the stomach. XR ABDOMEN FOR NG/OG/NE TUBE PLACEMENT Final Result Satisfactory positioning of the enteric tube with distal tip and side hole overlying proximal stomach. XR ABDOMEN (KUB) (SINGLE AP VIEW) Final Result Preferential distention of small-bowel loops compatible with partial small bowel obstruction, degree of distention unchanged from prior examination. Contrast material incidentally noted in the bladder nodule from prior CT. RECOMMENDATION: Continued radiographic monitoring. XR ABDOMEN FOR NG/OG/NE TUBE PLACEMENT Final Result Satisfactory position of the enteric tube. CT ABDOMEN PELVIS W IV CONTRAST Additional Contrast? None Final Result Findings compatible with distal small bowel obstruction with suspected transition point in the right lower quadrant. No pneumatosis or free air. XR ABDOMEN (2 VIEWS) (Results Pending) ASSESSMENT: Principal Problem: SBO (small bowel obstruction) (HCC) Active Problems: Small bowel obstruction (HCC) Seizures (HCC) Chronic MR (mental retardation), severe Epilepsy (HCC) Mild malnutrition (HCC) Resolved Problems: Moderate malnutrition (HCC) PLAN: I agree with the plan as outlined in the BREAKER UP/PA's note Disposition: Discharge plan is pending GS recommendations and improvement of SBO. Please note that this chart was generated using voice recognition [employer] dictation software. Although every effort was made to ensure the accuracy of this automated sidewalk repairer, some errors in sidewalk repairer may have occurred. Lyla Zepeda MD 09/06/2022 5:25 PM Progress Note SUBJECTIVE: Patient seen for f/u of SBO (small bowel obstruction) (HCC). He sitting up in chair no distress working with PT. Had several BM yesterday. Xrays show improvement. ROS: Constitutional: negative for fevers, and negative for chills. Respiratory: negative for shortness of breath, negative for cough, and negative for wheezing Cardiovascular: negative for chest pain, and negative for palpitations Gastrointestinal: negative for abdominal pain, negative for nausea,negative for vomiting, negative for diarrhea, and negative for constipation All other systems were reviewed with the patient and are negative unless otherwise stated in HPI OBJECTIVE: Vitals: Vitals: 09/06/22 0639 BP: (!) 128/54 Pulse: 50 Resp: 18 Temp: 98.4 F (36.9 C) SpO2: 94% Weight - Scale: 177 lb 4 oz (80.4 kg) Height: 5' 5 (165.1 cm) Weight Wt Readings from Last 3 Encounters: 09/06/22 177 lb 4 oz (80.4 kg) 06/23/22 182 lb (82.6 kg) 06/15/22 182 lb 15.7 oz (83 kg) Body mass index is 29.5 kg/m . 24HR INTAKE/OUTPUT: Intake/Output Summary (Last 24 hours) at 09/06/2022 0915 Last data filed at 09/06/2022 0811 Gross per 24 hour Intake 1722.71 ml Output -- Net 1722.71 ml Exam: GEN: Awake, alert and oriented to person only. EYES: EOMI, pupils equal NECK: Supple. No lymphadenopathy. No carotid bruit CVS: regular rate and rhythm, no audible murmur PULM: CTA, no wheezes, rales or rhonchi, no acute respiratory distress ABD: Bowels sounds active. Abdomen is soft. No distention. no tenderness to palpation. EXT: no edema bilaterally . No calf tenderness. NEURO: Moves all extremities. Motor and sensory are grossly intact SKIN: No rashes. No skin lesions. Diagnostic Data: Complete Blood Count: Recent Labs 09/04/22 0550 09/05/22 0535 09/06/22 0415 WBC 12.8* 12.1* 6.9 RBC 3.39* 3.21* 2.97* HGB 11.1* 10.5* 9.8* HCT 33.4* 32.0* 29.8* MCV 98.5 99.7 100.3 MCH 32.7 32.7 33.0 MCHC 33.2 32.8 32.9 RDW 13.2 13.0 12.7 PLT 170 147 132* MPV 9.5 9.2 9.6 Last 3 Blood Glucose: Recent Labs 09/04/22 0550 09/05/22 0535 09/06/22 0415 GLUCOSE 90 94 84 Comprehensive Metabolic Profile: Recent Labs 09/04/22 0550 09/05/22 0535 09/06/22 0415 NA 143 141 142 K 3.8 3.7 3.6* CL 106 104 108* CO2 26 25 25 BUN 21 19 19 CREATININE 0.79 0.85 0.68* GLUCOSE 90 94 84 CALCIUM 8.8 8.7 8.3* PROT 6.9 6.8 6.5 LABALBU 3.7 3.7 3.2* BILITOT 0.6 0.8 0.7 ALKPHOS 110 98 91 AST 13 13 20 ALT 13 12 16 Urinalysis: Lab Results Component Value Date/Time NITRU NEGATIVE 06/12/2022 11:10 AM COLORU Yellow 06/12/2022 11:10 AM PHUR 8.0 06/12/2022 11:10 AM WBCUA 2 TO 5 06/12/2022 11:10 AM RBCUA 0 TO 2 06/12/2022 11:10 AM MUCUS NOT REPORTED 12/05/2018 06:15 AM TRICHOMONAS NOT REPORTED 12/05/2018 06:15 AM YEAST NOT REPORTED 12/05/2018 06:15 AM BACTERIA 2+ 06/12/2022 11:10 AM SPECGRAV 1.010 06/12/2022 11:10 AM LEUKOCYTESUR TRACE 06/12/2022 11:10 AM UROBILINOGEN Normal 06/12/2022 11:10 AM BILIRUBINUR NEGATIVE 06/12/2022 11:10 AM BILIRUBINUR NEGATIVE 10/31/2010 12:33 PM GLUCOSEU NEGATIVE 06/12/2022 11:10 AM GLUCOSEU NEGATIVE 10/31/2010 12:33 PM KETUA NEGATIVE 06/12/2022 11:10 AM AMORPHOUS 2+ 06/12/2022 11:10 AM HgBA1c: No results found for: LABA1C Lactic Acid: Lab Results Component Value Date/Time LACTA 1.3 09/02/2022 07:35 PM LACTA 1.3 06/21/2022 12:30 PM LACTA 1.5 05/08/2022 11:30 PM Troponin: No results for input(s): TROPONINI in the last 72 hours. CRP: No results for input(s): CRP in the last 72 hours. Radiology/Imaging: XR ABDOMEN (KUB) (SINGLE AP VIEW) Final Result Improving/resolving small bowel obstruction XR ABDOMEN (2 VIEWS) Final Result 1. Persistent small bowel obstruction. XR ABDOMEN (2 VIEWS) Final Result No change in gaseous distension in the intestinal tract. NG tube terminates in the stomach. XR ABDOMEN FOR NG/OG/NE TUBE PLACEMENT Final Result Satisfactory positioning of the enteric tube with distal tip and side hole overlying proximal stomach. XR ABDOMEN (KUB) (SINGLE AP VIEW) Final Result Preferential distention of small-bowel loops compatible with partial small bowel obstruction, degree of distention unchanged from prior examination. Contrast material incidentally noted in the bladder nodule from prior CT. RECOMMENDATION: Continued radiographic monitoring. XR ABDOMEN FOR NG/OG/NE TUBE PLACEMENT Final Result Satisfactory position of the enteric tube. CT ABDOMEN PELVIS W IV CONTRAST Additional Contrast? None Final Result Findings compatible with distal small bowel obstruction with suspected transition point in the right lower quadrant. No pneumatosis or free air. XR ABDOMEN (2 VIEWS) (Results Pending) ASSESSMENT / PLAN: MEDICAL DECISION MAKING: Primary Problem(s): SBO (small bowel obstruction) (HCC) Differential diagnoses: Ileus Condition is a chronic illness with exacerbation, progression or side effects of treatment Condition is stable Treatment plan: Consultation: General surgery Imaging: Abdominal films daily Medications: IV Protonix IV fluids Medication Monitoring / High Risk Medications: none Advance diet Seizure disorder Condition is a chronic stable condition Treatment plan: Continue current treatment Imaging: no further imaging studies ordered today Medications: IV Keppra IV Vimpat Nutrition status: at risk for malnutrition Subacute Nurse consult initiated Hospital Prophylaxis: DVT: Lovenox Stress Ulcer: PPI Disposition: Shared decision making: All test results, treatment options and disposition options were discussed with the patient today Social determinants of health that may impact management: none Code status: Full Code Disposition: Discharge plan is home [facility] Advanced Care Planning documentation: [x] I have confirmed that the patient's Advance Care Plan is present, Code Status is documented, orsurrogate decision maker is listed in the patient's medical record [If yes , STOP HERE] [] The patient's Advance Care Plan is NOT present because: [] I confirmed today that the patient does not wish or was not able to name a surrogate decision maker or provide and advance care plan. [] Hospice care is currently being provided or has been provided within the calendar year. [] I did NOT confirm today the presence of an Advance Care Plan or surrogate decision maker documented within the patient's medical record. [DOES NOT SATISFY MIPS PERFORMANCE] Dorota Woodson APRN - TRUCK CAR AND BUS CLEANER , CRANKSHAFT STRAIGHTENER, BREAKER UP-[facility] 09/06/2022, 9:15 AM * Connie Newsome RN - 09/05/2022 11:20 PM EDT VS rechecked as charted. Pt remains at 94% on room air and denies any pain. Brief changed due to urine incontinence and gown also changed at this time. Pt repositioned with pillow support. Pt denies any other needs. Call light remains within reach and bed alarm in place. * Connie Newsome RN - 09/05/2022 6:44 PM EDT Pt in bed awake sitting in high-santiago position watching television. VS and assessment done as charted. Pt denies any pain. Pt also denies any other needs. Call light is within reach and bed alarm for patient safety. * Veronica Zavala RCP - 09/05/2022 4:00 PM EDT Parking Enforcement Specialist called by RN to assess pt's mucous clearing ability. Pt was snoring loudly when jingle writer entered the room. Parking Enforcement Specialist woke pt up and asked pt to cough. Pt coughed and was able to clear some of the congestion at back of throat. Parking Enforcement Specialist orally suctioned pt to assist with mucous clearing. * Georgie Dillard RN - 09/05/2022 2:42 PM EDT Reassessment and vitals obtained at this time as charted. Patient remains slightly tachypneic, vitals otherwise WNL. Patient denies pain. Patient remains oriented to person only at this time. Patientknows he is in the hospital but is unable to tell jingle writer which hospital or town he is in. Rhonchi remains present to upper and middle lobes of lungs, lower lung sounds diminished. Patient does continue to have a moist cough. Assessment otherwise as charted, see flowsheets. Patient was also changed at this time for incontinence of urine and large amount of stool, brief changed and gary care provided. Patient was then assisted to lay on his left side with pillow support. Patient resting in the bed with call light in reach and bed alarm on, denies any other needs at this time. Care ongoing. * Luz Marina Durand MD - 09/05/2022 11:29 AM EDT Hospital day #3 Patient apparently discontinued his nasogastric tube and the tube was not replaced he had a large bowel movement yesterday patient denies any abdominal pain Vital signs are stable he is afebrile Chest clear Cardiovascular regular rate and rhythm Abdomen is soft with hypoactive bowel sounds Laboratories essentially unchanged 2 views of the abdomen continue to show gaseous distention of large and small bowel Assessment and plan given that the patient purposely discontinued his nasogastric tube at present we will not reinsert a new 1 we will continue to give him oral erythromycin as a prokinetic keep him n.p.o. and repeat his abdominal films in the a.m. * SHANTI Armstrong - 09/05/2022 9:14 AM EDT Occupational Therapy Facility/Department: [facility] Daily Treatment Note NAME: Amol Taylor : 1955 Date of Service: 09/05/2022 Discharge Recommendations: Continue to assess pending progress Patient Diagnosis(es): The encounter diagnosis was Small bowel obstruction (HCC). Assessment Activity Tolerance: Treatment limited secondary to decreased cognition Plan Restrictions Subjective Subjective Subjective: Patient supine in bed. Soiled brief noted patient agreeable to having brief changed Pain: Pt had no complaints of pain. Orientation Overall Orientation Status: Impaired Orientation Level: Oriented to person Pain: denies pain complaint Objective Vitals Bed Mobility Training Bed Mobility Training: Yes Overall Level of Assistance: Maximum assistance;Assist X2 (Verbal/tactile cues for technique/hand placement) Interventions: Tactile cues;Verbal cues Rolling: Assist X2;Maximum assistance ADL Feeding Skilled Clinical Factors: NG tube came out during today's session. Nurse notified and she advised it will be be replaced at this time LE Bathing: Maximum assistance LE Bathing Skilled Clinical Factors: X 2 for pericare with Mod/Max VC for patient to roll side to side to assist with bathing & brief change LE Dressing: Maximum assistance LE Dressing Skilled Clinical Factors: X 2 for pericare with Mod/Max VC for patient to roll side to side to assist with bathing & brief change Toileting: Maximum assistance Toileting Skilled Clinical Factors: X 2 for pericare with Mod/Max VC for patient to roll side to side to assist with bathing & brief change Safety Devices Type of Devices: Bed alarm in place;Call light within reach;Nurse notified;Left in bed Patient Education Education Given To: Patient Education Provided: Role of Therapy;ADL Adaptive Strategies Education Method: Verbal Barriers to Learning: Cognition Education Outcome: Continued education needed Goals Short Term Goals Time Frame for Short Term Goals: 20 visits Short Term Goal 1: Pt. will tolerate 15 mins of BUE ther ex to increase strength for self care tasks. Short Term Goal 2: Pt. will engage in simple UB/grooming ADL's to increase (I). Short Term Goal 3: Pt. will tolerate sitting EOB while maintaining G balance to increase (I) with bedside ADL's. Short Term Goal 4: Pt. will demo standing tolerance x 2 mins with support and w/o LOB to increase safety/participation with ADL's. Therapy Time Individual Concurrent Group Co-treatment Time In 729 Time Out 0756 Minutes 26 SHANTI Armstrong * Lillian Hernandez PTA - 09/05/2022 9:13 AM EDT Physical Therapy Facility/Department: [facility] Daily Treatment Note NAME: Amol Taylor : 1955 Date of Service: 09/05/2022 Discharge Recommendations: Continue to assess pending progress Patient Diagnosis(es): The encounter diagnosis was Small bowel obstruction (HCC). Assessment Activity Tolerance: Treatment limited secondary to decreased cognition Plan Physcial Therapy Plan General Plan: 2 times a day 7 days a week (1x daily on weekends/holidays) Current Treatment Recommendations: Strengthening;ROM;Balance training;Functional mobility training;Transfer training;Endurance training;Neuromuscular re- education;Home exercise program;Positioning;Therapeutic activities Restrictions Restrictions/Precautions Restrictions/Precautions: Fall Risk, General Precautions Subjective Subjective Subjective: Pt in bed upon arrival, incontinent of stool. Pt was agreeable to get OOB but NG tube came out of nose, nursing was notified. Pt left in bed at this time. Pain: denies pain complaint Orientation Overall Orientation Status: Impaired Orientation Level: Oriented to person Objective Vitals Bed Mobility Training Bed Mobility Training: Yes Overall Level of Assistance: Maximum assistance;Assist X2 (Verbal/tactile cues for technique/hand placement) Interventions: Tactile cues;Verbal cues Rolling: Assist X2;Maximum assistance Safety Devices Type of Devices: Bed alarm in place;Call light within reach;Nurse notified;Left in bed Goals Short Term Goals Time Frame for Short Term Goals: 20 days Short Term Goal 1: Pt to be CGA with RW for tranfsers to improve functional mobility and safety of transfers Short Term Goal 2: Pt to be able to tolerate 20-30 mins therex/act to improve functional capacity for ADLs Short Term Goal 3: Pt to be SUP with bed mobility to improve safety and independence of care tasks. Education Patient Education Education Given To: Patient Education Provided: Role of Therapy;Plan of Care Education Method: Verbal Barriers to Learning: Cognition Education Outcome: Continued education needed Therapy Time Individual Concurrent Group Co-treatment Time In 729 Time Out 0756 Minutes 26 Lillian Hernandez PTA * Georgie Dillard RN - 09/05/2022 8:48 AM EDT Shift assessment and vitals obtained at this time as charted. Patient is slightly tachypneic and blood pressure slightly elevated, vitals otherwise WNL. Patient denies pain at this time. Patient is oriented to person only at this time. Rhonchi noted throughout lung matta, however, patient is making grunting sounds so unable to assess if rhonchi is due to grunting. Bowel sounds are hypoactive throughout. Assessment otherwise as charted, see flowsheets. Patient also changed at this time for soft, loose bowel movement and was repositioned in the bed. Parking Enforcement Specialist asked Dorota FREDERICK about suppository, per Dorota, hold suppository this morning. Patient is resting in the bed, denies any other needs atthis time. Call light in reach, bed alarm on, care ongoing. * RAISA Mejia CNP - 09/05/2022 8:04 AM EDT Progress Note SUBJECTIVE: Patient seen for f/u of SBO (small bowel obstruction) ([facility]). He resting in bed no distress. Pulled out NG. Having BM's although xray continues with obstruction ROS: Constitutional: negative for fevers, and negative for chills. Respiratory: negative for shortness of breath, negative for cough, and negative for wheezing Cardiovascular: negative for chest pain, and negative for palpitations Gastrointestinal: negative for abdominal pain, negative for nausea,negative for vomiting, negative for diarrhea, and negative for constipation All other systems were reviewed with the patient and are negative unless otherwise stated in HPI OBJECTIVE: Vitals: Vitals: 09/05/22 0010 BP: Pulse: Resp: Temp: 99.2 F (37.3 C) SpO2: Weight - Scale: 176 lb 5.9 oz (80 kg) Height: 5' 5 (165.1 cm) Weight Wt Readings from Last 3 Encounters: 09/05/22 176 lb 5.9 oz (80 kg) 06/23/22 182 lb (82.6 kg) 06/15/22 182 lb 15.7 oz (83 kg) Body mass index is 29.35 kg/m . 24HR INTAKE/OUTPUT: Intake/Output Summary (Last 24 hours) at 09/05/2022 0804 Last data filed at 09/05/2022 0445 Gross per 24 hour Intake 2160.46 ml Output 700 ml Net 1460.46 ml Exam: GEN: Awake, alert and oriented to person only. EYES: EOMI, pupils equal NECK: Supple. No lymphadenopathy. No carotid bruit CVS: regular rate and rhythm, no audible murmur PULM: CTA, no wheezes, rales or rhonchi, no acute respiratory distress ABD: Bowels sounds hypoactive. Abdomen is soft. No distention. no tenderness to palpation. EXT: no edema bilaterally . No calf tenderness. NEURO: Moves all extremities. Motor and sensory are grossly intact SKIN: No rashes. No skin lesions. Diagnostic Data: Complete Blood Count: Recent Labs 09/03/22 0732 09/04/22 0550 09/05/22 0535 WBC 11.5* 12.8* 12.1* RBC 3.74* 3.39* 3.21* HGB 12.1* 11.1* 10.5* HCT 36.8* 33.4* 32.0* MCV 98.4 98.5 99.7 MCH 32.4 32.7 32.7 MCHC 32.9 33.2 32.8 RDW 13.2 13.2 13.0 PLT 206 170 147 MPV 9.5 9.5 9.2 Last 3 Blood Glucose: Recent Labs 09/02/22 1935 09/03/22 0732 09/04/22 0550 09/05/22 0535 GLUCOSE 113* 103* 90 94 Comprehensive Metabolic Profile: Recent Labs 09/03/22 0732 09/04/22 0550 09/05/22 0535 NA 145* 143 141 K 3.2* 3.8 3.7 CL 102 106 104 CO2 31 26 25 BUN 27* 21 19 CREATININE 0.83 0.79 0.85 GLUCOSE 103* 90 94 CALCIUM 9.3 8.8 8.7 PROT 7.2 6.9 6.8 LABALBU 3.9 3.7 3.7 BILITOT 0.4 0.6 0.8 ALKPHOS 124 110 98 AST 17 13 13 ALT 19 13 12 Urinalysis: Lab Results Component Value Date/Time NITRU NEGATIVE 06/12/2022 11:10 AM COLORU Yellow 06/12/2022 11:10 AM PHUR 8.0 06/12/2022 11:10 AM WBCUA 2 TO 5 06/12/2022 11:10 AM RBCUA 0 TO 2 06/12/2022 11:10 AM MUCUS NOT REPORTED 12/05/2018 06:15 AM TRICHOMONAS NOT REPORTED 12/05/2018 06:15 AM YEAST NOT REPORTED 12/05/2018 06:15 AM BACTERIA 2+ 06/12/2022 11:10 AM SPECGRAV 1.010 06/12/2022 11:10 AM LEUKOCYTESUR TRACE 06/12/2022 11:10 AM UROBILINOGEN Normal 06/12/2022 11:10 AM BILIRUBINUR NEGATIVE 06/12/2022 11:10 AM BILIRUBINUR NEGATIVE 10/31/2010 12:33 PM GLUCOSEU NEGATIVE 06/12/2022 11:10 AM GLUCOSEU NEGATIVE 10/31/2010 12:33 PM KETUA NEGATIVE 06/12/2022 11:10 AM AMORPHOUS 2+ 06/12/2022 11:10 AM HgBA1c: No results found for: LABA1C Lactic Acid: Lab Results Component Value Date/Time LACTA 1.3 09/02/2022 07:35 PM LACTA 1.3 06/21/2022 12:30 PM LACTA 1.5 05/08/2022 11:30 PM Troponin: No results for input(s): TROPONINI in the last 72 hours. CRP: No results for input(s): CRP in the last 72 hours. Radiology/Imaging: XR ABDOMEN (2 VIEWS) Final Result 1. Persistent small bowel obstruction. XR ABDOMEN (2 VIEWS) Final Result No change in gaseous distension in the intestinal tract. NG tube terminates in the stomach. XR ABDOMEN FOR NG/OG/NE TUBE PLACEMENT Final Result Satisfactory positioning of the enteric tube with distal tip and side hole overlying proximal stomach. XR ABDOMEN (KUB) (SINGLE AP VIEW) Final Result Preferential distention of small-bowel loops compatible with partial small bowel obstruction, degree of distention unchanged from prior examination. Contrast material incidentally noted in the bladder nodule from prior CT. RECOMMENDATION: Continued radiographic monitoring. XR ABDOMEN FOR NG/OG/NE TUBE PLACEMENT Final Result Satisfactory position of the enteric tube. CT ABDOMEN PELVIS W IV CONTRAST Additional Contrast? None Final Result Findings compatible with distal small bowel obstruction with suspected transition point in the right lower quadrant. No pneumatosis or free air. XR ABDOMEN (2 VIEWS) (Results Pending) ASSESSMENT / PLAN: MEDICAL DECISION MAKING: Primary Problem(s): SBO (small bowel obstruction) (HCC) Differential diagnoses: Ileus Condition is a chronic illness with exacerbation, progression or side effects of treatment Condition is stable Treatment plan: Consultation: General surgery Imaging: Abdominal films daily Medications: IV Protonix IV fluids Medication Monitoring / High Risk Medications: none NG to low intermittent suction-pulled out-- Defer to Gen Surg Seizure disorder Condition is a chronic stable condition Treatment plan: Continue current treatment Imaging: no further imaging studies ordered today Medications: IV Keppra IV Vimpat Nutrition status: at risk for malnutrition Subacute Nurse consult initiated Hospital Prophylaxis: DVT: Lovenox Stress Ulcer: PPI Disposition: Shared decision making: All test results, treatment options and disposition options were discussed with the patient today Social determinants of health that may impact management: none Code status: Full Code Disposition: Discharge plan is home [facility] Advanced Care Planning documentation: [x] I have confirmed that the patient's Advance Care Plan is present, Code Status is documented, orsurrogate decision maker is listed in the patient's medical record [If yes , STOP HERE] [] The patient's Advance Care Plan is NOT present because: [] I confirmed today that the patient does not wish or was not able to name a surrogate decision maker or provide and advance care plan. [] Hospice care is currently being provided or has been provided within the calendar year. [] I did NOT confirm today the presence of an Advance Care Plan or surrogate decision maker documented within the patient's medical record. [DOES NOT SATISFY MIPS PERFORMANCE] Dorota Woodson APRN - TRUCK CAR AND BUS CLEANER , RAISA, BREAKER UP-C Hospitalist Medicine 09/05/2022, 8:05 AM Associated attestation - Lyla Zepeda MD - 09/05/2022 11:28 AM EDT Images from the original note were not included. [address], [id number] Attestation Patient: Amol Taylor Date of Admission: 09/02/2022 5:58 PM Hospital Day # 3 Date of Evaluation: 09/05/2022 I personally evaluated and examined the patient [id number] in conjunction with the PA/BREAKER UP and agree with the management and dispostition of the patient. Please see the PA/BREAKER UP's note for full details.My gee findings are: SUBJECTIVE: Patient seen for follow up of SBO (small bowel obstruction) ([facility]). Patient seen and examined at thebed side , no new acute events overnight except that he had pulled the NG tube and no new complains. Notes from nursing staff and Consults had been reviewed, and the overnight progress had been checked with the nursing staff as well. OBJECTIVE: Vitals: Temp: 98.4 F (36.9 C) BP: (!) 146/64 Respirations: 22 Pulse: 83 SpO2: 93 % Weight Wt Readings from Last 3 Encounters: 09/05/22 176 lb 5.9 oz (80 kg) 06/23/22 182 lb (82.6 kg) 06/15/22 182 lb 15.7 oz (83 kg) Body mass index is 29.35 kg/m . 24HR INTAKE/OUTPUT: Intake/Output Summary (Last 24 hours) at 09/05/2022 1127 Last data filed at 09/05/2022 0856 Gross per 24 hour Intake 2401.42 ml Output 475 ml Net 1926.42 ml Exam: GEN: Awake, alert and oriented x3. EYES: EOMI, pupils equal NECK: Supple. No lymphadenopathy. No carotid bruit CVS: regular rate and rhythm, no audible murmur PULM: CTA, no wheezes, rales or rhonchi, no acute respiratory distress ABD: Bowels sounds normal. Abdomen is soft. No distention. epigastric tenderness to palpation. EXT: no edema bilaterally . No calf tenderness. NEURO: Moves all extremities. Motor and sensory are grossly intact SKIN: No rashes. No skin lesions. DATA: Complete Blood Count: Recent Labs 09/03/22 0732 09/04/22 0550 09/05/22 0535 WBC 11.5* 12.8* 12.1* RBC 3.74* 3.39* 3.21* HGB 12.1* 11.1* 10.5* HCT 36.8* 33.4* 32.0* MCV 98.4 98.5 99.7 RDW 13.2 13.2 13.0 PLT 206 170 147 Recent Labs 09/03/22 0732 09/04/22 0550 09/05/22 0535 SEGS 72* 79* 80* NEUTROABS 8.20* 10.07* 9.62* LYMPHOPCT 20* 13* 11* LYMPHSABS 2.31 1.71 1.34 MONOPCT 7 7 8 EOSRELPCT 1 0* 0* BASOPCT 0 1 0 IMMGRAN 0 0 0 CMP: Lab Results Component Value Date GLUCOSE 94 09/05/2022 BUN 19 09/05/2022 CREATININE 0.85 09/05/2022 NA 141 09/05/2022 K 3.7 09/05/2022 CALCIUM 8.7 09/05/2022 CL 104 09/05/2022 CO2 25 09/05/2022 PROT 6.8 09/05/2022 LABALBU 3.7 09/05/2022 BILITOT 0.8 09/05/2022 ALKPHOS 98 09/05/2022 ALT 12 09/05/2022 AST 13 09/05/2022 UA: Lab Results Component Value Date COLORU Yellow 06/12/2022 SPECGRAV 1.010 06/12/2022 WBCUA 2 TO 5 06/12/2022 RBCUA 0 TO 2 06/12/2022 EPITHUA 0 TO 2 06/12/2022 LEUKOCYTESUR TRACE (A) 06/12/2022 GLUCOSEU NEGATIVE 06/12/2022 KETUA NEGATIVE 06/12/2022 PROTEINU NEGATIVE 06/12/2022 HGBUR NEGATIVE 06/12/2022 CASTUA NOT REPORTED 12/05/2018 CRYSTUA NOT REPORTED 12/05/2018 BACTERIA 2+ (A) 06/12/2022 YEAST NOT REPORTED 12/05/2018 Lactic Acid: Lab Results Component Value Date/Time LACTA 1.3 09/02/2022 07:35 PM LACTA 1.3 06/21/2022 12:30 PM LACTA 1.5 05/08/2022 11:30 PM High Sensitivity Troponin: No results for input(s): TROPHS in the last 72 hours. Radiology/Imaging: XR ABDOMEN (2 VIEWS) Final Result 1. Persistent small bowel obstruction. XR ABDOMEN (2 VIEWS) Final Result No change in gaseous distension in the intestinal tract. NG tube terminates in the stomach. XR ABDOMEN FOR NG/OG/NE TUBE PLACEMENT Final Result Satisfactory positioning of the enteric tube with distal tip and side hole overlying proximal stomach. XR ABDOMEN (KUB) (SINGLE AP VIEW) Final Result Preferential distention of small-bowel loops compatible with partial small bowel obstruction, degree of distention unchanged from prior examination. Contrast material incidentally noted in the bladder nodule from prior CT. RECOMMENDATION: Continued radiographic monitoring. XR ABDOMEN FOR NG/OG/NE TUBE PLACEMENT Final Result Satisfactory position of the enteric tube. CT ABDOMEN PELVIS W IV CONTRAST Additional Contrast? None Final Result Findings compatible with distal small bowel obstruction with suspected transition point in the right lower quadrant. No pneumatosis or free air. XR ABDOMEN (2 VIEWS) (Results Pending) ASSESSMENT: Principal Problem: SBO (small bowel obstruction) (HCC) Active Problems: Moderate malnutrition (HCC) Small bowel obstruction (HCC) Seizures (HCC) Chronic MR (mental retardation), severe Epilepsy (HCC) Resolved Problems: * No resolved hospital problems. * PLAN: I agree with the plan as outlined in the BREAKER UP/PA's note Disposition: Discharge plan is pending Please note that this chart was generated using voice recognition [employer] dictation software. Although every effort was made to ensure the accuracy of this automated sidewalk repairer, some errors in sidewalk repairer may have occurred. Lyla Zepeda MD 09/05/2022 11:27 AM * Georgie Dillard RN - 09/05/2022 7:45 AM EDT Therapy at bedside at this time and states that when they moved the patient just slightly, his NG tube came out. Parking Enforcement Specialist updated Dorota FREDERICK about NG tube being removed accidentally, per Dorota, leave NG tube out until Dr. Durand sees the patient. Care ongoing. * Connie Newsome RN - 09/05/2022 4:50 AM EDT NG noted to be pulled out partially by patient. Advanced back to 55 cm as previous with XR verification to be completed. Pt changed due to incontinence. I&O recorded. Weight obtained after removing excess blankets and SCD pump, noted to be significantly lower than previous day. Unable to get patient up to verify if bed is zeroed at this time. * Connie Newsome RN - 09/04/2022 6:50 PM EDT Pt laying in bed awake. VS and assessment as charted. Pt denies any pain. Pt denies any current needs and was just changed prior to shift change due to incontinence. Call light within reach, bed alarm in place. * Carlie Sanchez RN - 09/04/2022 4:57 PM EDT Parking Enforcement Specialist called Dr. Durand at this time to inform of pt BM earlier today per Dorota FREDERICK. states alright, very well, thank ya. Will continue to monitor. * KRYSTIN Torres - 09/04/2022 4:54 PM EDT Attempts made to contact legal guardian without success. Will try again at a later time. KRYSTIN Torres 09/04/2022 * Carlie Sanchez RN - 09/04/2022 2:16 PM EDT Ramesh with broadband installer called at this time regarding midline catheter placement. RN states he will be here in about 35 minutes. Peripheral IV continues to work at this time while awaiting midline. Will continue to monitor. * Ramandeep Coffey PTA - 09/04/2022 1:59 PM EDT Physical Therapy Facility/Department: [facility] Daily Treatment Note NAME: Amol Taylor : 1955 Date of Service: 09/04/2022 Discharge Recommendations: Continue to assess pending progress Patient Diagnosis(es): The encounter diagnosis was Small bowel obstruction (HCC). Assessment Assessment: Ther-ex: seated BLE x15 in all planes with mod vc's required for technique with fair- carryover. Bed Mobs: Mod x2 with max vc's required for to complete with correct technique with fair carryover. Transfers: Mod x2 with max verbal and tactile ques required throughout for pt safety and to complete transfer in correct sequence. Activity Tolerance: Treatment limited secondary to decreased cognition;Patient limited by fatigue Plan Physcial Therapy Plan General Plan: 2 times a day 7 days a week (1x/day on weekends and holidays) Current Treatment Recommendations: Strengthening;ROM;Balance training;Functional mobility training;Transfer training;Endurance training;Neuromuscular re- education;Home exercise program;Positioning;Therapeutic activities Restrictions Restrictions/Precautions Restrictions/Precautions: Fall Risk, General Precautions Subjective Subjective Subjective: pt in bed upon arrival, nursing present, agreeable to therapy Pain: denies pain complaint Orientation Overall Orientation Status: Impaired Objective Bed Mobility Training Bed Mobility Training: Yes Overall Level of Assistance: Moderate assistance;Assist X2 Rolling: Moderate assistance;Assist X2 Supine to Sit: Moderate assistance;Assist X2 Scooting: Moderate assistance;Assist X2 Balance Sitting: With support Standing: Impaired Standing - Static: Poor Standing - Dynamic: Poor Transfer Training Transfer Training: Yes Overall Level of Assistance: Moderate assistance;Assist X2 Interventions: Safety awareness training;Verbal cues;Manual cues Sit to Stand: Moderate assistance;Assist X2 Stand to Sit: Moderate assistance;Assist X2 Stand Pivot Transfers: Moderate assistance;Assist X2 Bed to Chair: Moderate assistance;Assist X2 Gait Training Gait Training: No PT Exercises Exercise Treatment: Seated BLE x15 in all planes Safety Devices Type of Devices: Nurse notified;Call light within reach;Left in chair;Chair alarm in place Goals Short Term Goals Time Frame for Short Term Goals: 20 days Short Term Goal 1: Pt to be CGA with RW for tranfsers to improve functional mobility and safety of transfers Short Term Goal 2: Pt to be able to tolerate 20-30 mins therex/act to improve functional capacity for ADLs Short Term Goal 3: Pt to be SUP with bed mobility to improve safety and independence of care tasks. Education Patient Education Education Given To: Patient Education Provided: Role of Therapy;Plan of Care Education Method: Verbal Barriers to Learning: Cognition Education Outcome: Verbalized understanding Therapy Time Individual Concurrent Group Co-treatment Time In 1330 Time Out 1348 Minutes 18 Ramandeep Coffey PTA * Carlie Sanchez RN - 09/04/2022 1:57 PM EDT Pt had large, loose, incontinent BM. See flowsheets. Dorota FREDERICK notified. TRUCK CAR AND BUS CLEANER states halleluja! Will continue to monitor. * Carlie Sanchez RN - 09/04/2022 12:25 PM EDT broadband installer for Midline catheter placement per order at this time. Information given to Vandana. Will continue to monitor. * Kimberly Talbert RD, LD - 09/04/2022 12:18 PM EDT Comprehensive Nutrition Assessment Type and Reason for Visit: Initial Nutrition Recommendations/Plan: Continue NPO When oral diet resumes, consider high fiber diet with specific education for foods that cause blockage Malnutrition Assessment: Malnutrition Status: At risk for malnutrition (Comment) (09/04/22 1218) Context: Acute Illness Findings of the 6 clinical characteristics of malnutrition: Energy Intake: Unable to assess Weight Loss: Unable to assess Body Fat Loss: Mild body fat loss Muscle Mass Loss: No significant muscle mass loss Fluid Accumulation: No significant fluid accumulation Extremities Line Service Technician Strength: Not Performed Nutrition Assessment: Inadequate protein-energy intake related to altered GI function as evidenced by other (comment) (small bowel obstruction.)NG to LIWS. ZAO=895#, WWH=305# (06/23/2022). Pt is a resident at a alf,and note recurring small bowel obstructions. Pt is telling jingle writer he has to take a bowel movement and is urgent. Spoke with nursing. 9# (4.7%) wt gain noted. Note per EHR, pt denies abdominal discomfort at this time. Moderate nutrition risk. At risk for malnutrition. Nutrition Related Findings: appears adequately nourished Wound Type: None Current Nutrition Intake & Therapies: Average Meal Intake: Unable to assess Average Supplements Intake: Unable to assess Diet NPO Anthropometric Measures: Height: 5' 5 (165.1 cm) [place] Body Weight (IBW): 136 lbs (62 kg) Admission Body Weight: 198 lb 6.6 oz (90 kg) Current Body Weight: 191 lb 5.8 oz (86.8 kg), 140.7 % IBW. Weight Source: Bed Scale Current BMI (kg/m2): 31.8 Usual Body Weight: 182 lb (82.6 kg) % Weight Change (Calculated): 5.1 Weight Adjustment For: No Adjustment BMI Categories: Obese Class 1 (BMI 30.0-34.9) Estimated Daily Nutrient Needs: Energy Requirements Based On: Kcal/kg Weight Used for Energy Requirements: Current Energy (kcal/day): 1795-9240 (20-22) Weight Used for Protein Requirements: [place] Protein (g/day): 61.8-74 (1.0-1.2) Method Used for Fluid Requirements: 1 ml/kcal Fluid (ml/day): Nutrition Diagnosis: Inadequate protein-energy intake related to altered GI function as evidenced by other (comment) (small bowel obstruction.) Recent Labs 09/02/22 1935 09/03/22 0732 09/04/22 0550 NA 142 145* 143 K 3.7 3.2* 3.8 CL 99 102 106 CO2 31 31 26 BUN 29* 27* 21 CREATININE 1.15 0.83 0.79 GLUCOSE 113* 103* 90 ALT 24 19 13 ALKPHOS 159* 124 110 Lab Results Component Value Date/Time LABALBU 3.7 09/04/2022 05:50 AM Nutrition Interventions: Food and/or Nutrient Delivery: Continue NPO Nutrition Education/Counseling: Education not appropriate Coordination of Nutrition Care: No recommendation at this time, Continue to monitor while inpatient Plan of Care discussed with: Patient Goals: Previous Goal Met: No Progress toward Goal(s) Goals: Meet at least 75% of estimated needs Nutrition Monitoring and Evaluation: Behavioral-Environmental Outcomes: None Identified Food/Nutrient Intake Outcomes: Diet Advancement/Tolerance, Food and Nutrient Intake Physical Signs/Symptoms Outcomes: Biochemical Data, Constipation, Fluid Status or Edema, Weight Discharge Planning: Continue current diet Kimberly Talbert RD, LD Contact: [phone] * Luz Marina Durand MD - 09/04/2022 11:47 AM EDT Hospital day #2 Patient had a rather high bilious output from his nasogastric tube no flatus or stool denies any abdominal discomfort I do not believe that his subjective accounts are reliable Vital signs are stable he is afebrile Nasogastric tube in place with bilious material Chest clear to auscultation percussion Cardiovascular regular rate and rhythm Abdomen is soft without apparent tenderness no guarding or rebound bowel sounds are hypoactive he has no incisional groin hernias appreciated Musculoskeletal negative Homans Neurologically no focal findings Laboratories White count is 12.8 H&H of 11 and 33 electrolytes and hepatic profile are normal Review of the abdominal x-rays continued air and fluid both within large and small bowel Assessment and plan patient continues to radiographically manifest signs of an adynamic ileus we are intermittently clamping the NG tube with the administration of erythromycin to potent GI motility we will repeat his abdominal x-rays in the a.m. * SHANTI Ribeiro - 09/04/2022 10:57 AM EDT Occupational Therapy Facility/Department: [facility] Daily Treatment Note NAME: Amol Taylor : 1955 Date of Service: 09/04/2022 Discharge Recommendations: Continue to assess pending progress Patient Diagnosis(es): The encounter diagnosis was Small bowel obstruction (HCC). Assessment Activity Tolerance: Patient tolerated treatment well Discharge Recommendations: Continue to assess pending progress Plan Occupational Therapy Plan Times Per Week: 7x/wk Times Per Day: Once a day Current Treatment Recommendations: Strengthening;Functional mobility training;Safety education & training;Balance training;Self-Care / ADL Restrictions Restrictions/Precautions Restrictions/Precautions: Fall Risk;General Precautions Subjective Subjective Subjective: Pt lying in bed upon arrival. Pt agreed to participate in therapy session. Pain: Pt had no complaints of pain. Objective Vitals OT Exercises Exercise Treatment: Pt completed BUE ther ex x 7 planes x 15 reps x 1 set to increase UE strength and endurance in order to ease completion of ADL tasks. Pt required RBs as needed secondary to fatigue. Safety Devices Type of Devices: Left in bed;Nurse notified;Call light within reach;Bed alarm in place Patient Education Education Given To: Patient Education Provided: Role of Therapy;Plan of Care Education Method: Verbal Barriers to Learning: Cognition Education Outcome: Continued education needed Goals Short Term Goals Time Frame for Short Term Goals: 20 visits Short Term Goal 1: Pt. will tolerate 15 mins of BUE ther ex to increase strength for self care tasks. Short Term Goal 2: Pt. will engage in simple UB/grooming ADL's to increase (I). Short Term Goal 3: Pt. will tolerate sitting EOB while maintaining G balance to increase (I) with bedside ADL's. Short Term Goal 4: Pt. will demo standing tolerance x 2 mins with support and w/o LOB to increase safety/participation with ADL's. Therapy Time Individual Concurrent Group Co-treatment Time In 1020 Time Out 1043 Minutes 23 KHLOE Ribeiro/Jie * Ramandeep Coffey, BUSINESS SERVICES ASSISTANT - 09/04/2022 9:58 AM EDT [facility] Inpatient/Observation/Outpatient Rehabilitation Date: 09/04/2022 Patient Name: Amol Taylor [x] Inpatient Acute/Observation [] Outpatient : 1955 [] Pt no showed for scheduled appointment [x] Pt refused/declined therapy at this time due to: [] Pt cancelled due to: [] No Reason Given [] Sick/ill [x] Other: pt refused therapy after multipleattempts, stating he is tired and just wanted to rest, will check back in PM. Educated pt on importance of therapeutic participation. Therapist/Legal Mediator will attempt to see this patient, at our earliest opportunity. Ramandeep Coffey, BUSINESS SERVICES ASSISTANT Date: 09/04/2022 * RAISA Mejia CNP - 09/04/2022 6:53 AM EDT Progress Note SUBJECTIVE: Patient seen for f/u of SBO (small bowel obstruction) ([facility]). He resting in bed no distress. NG to LIMARLENE. Stated I'm fine ROS: Constitutional: negative for fevers, and negative for chills. Respiratory: negative for shortness of breath, negative for cough, and negative for wheezing Cardiovascular: negative for chest pain, and negative for palpitations Gastrointestinal: negative for abdominal pain, negative for nausea,negative for vomiting, negative for diarrhea, and negative for constipation All other systems were reviewed with the patient and are negative unless otherwise stated in HPI OBJECTIVE: Vitals: Vitals: 09/04/22 0015 BP: 137/74 Pulse: 94 Resp: 18 Temp: 98.9 F (37.2 C) SpO2: 92% Weight - Scale: 191 lb 5.8 oz (86.8 kg) Height: 5' 5 (165.1 cm) Weight Wt Readings from Last 3 Encounters: 09/04/22 191 lb 5.8 oz (86.8 kg) 06/23/22 182 lb (82.6 kg) 06/15/22 182 lb 15.7 oz (83 kg) Body mass index is 31.84 kg/m . 24HR INTAKE/OUTPUT: Intake/Output Summary (Last 24 hours) at 09/04/2022 0653 Last data filed at 09/04/2022 0618 Gross per 24 hour Intake 1614.3 ml Output 1075 ml Net 539.3 ml Exam: GEN: Awake, alert and oriented to person only. EYES: EOMI, pupils equal NECK: Supple. No lymphadenopathy. No carotid bruit CVS: regular rate and rhythm, no audible murmur PULM: CTA, no wheezes, rales or rhonchi, no acute respiratory distress ABD: Bowels sounds hypoactive. Abdomen is soft. No distention. no tenderness to palpation. EXT: no edema bilaterally . No calf tenderness. NEURO: Moves all extremities. Motor and sensory are grossly intact SKIN: No rashes. No skin lesions. Diagnostic Data: Complete Blood Count: Recent Labs 09/02/22 1935 09/03/22 0732 09/04/22 0550 WBC 14.9* 11.5* 12.8* RBC 4.24 3.74* 3.39* HGB 13.7 12.1* 11.1* HCT 41.5 36.8* 33.4* MCV 97.9 98.4 98.5 MCH 32.3 32.4 32.7 MCHC 33.0 32.9 33.2 RDW 13.1 13.2 13.2 PLT 245 206 170 MPV 9.1 9.5 9.5 Last 3 Blood Glucose: Recent Labs 09/02/22193409/03/22 0732 GLUCOSE 113* 103* Comprehensive Metabolic Profile: Recent Labs 09/02/22193409/03/22 0732 NA 142 145* K 3.7 3.2* CL 99 102 CO2 31 31 BUN 29* 27* CREATININE 1.15 0.83 GLUCOSE 113* 103* CALCIUM 9.6 9.3 PROT 8.1 7.2 LABALBU 4.7 3.9 BILITOT 0.3 0.4 ALKPHOS 159* 124 AST 20 17 ALT 24 19 Urinalysis: Lab Results Component Value Date/Time NITRU NEGATIVE 06/12/2022 11:10 AM COLORU Yellow 06/12/2022 11:10 AM PHUR 8.0 06/12/2022 11:10 AM WBCUA 2 TO 5 06/12/2022 11:10 AM RBCUA 0 TO 2 06/12/2022 11:10 AM MUCUS NOT REPORTED 12/05/2018 06:15 AM TRICHOMONAS NOT REPORTED 12/05/2018 06:15 AM YEAST NOT REPORTED 12/05/2018 06:15 AM BACTERIA 2+ 06/12/2022 11:10 AM SPECGRAV 1.010 06/12/2022 11:10 AM LEUKOCYTESUR TRACE 06/12/2022 11:10 AM UROBILINOGEN Normal 06/12/2022 11:10 AM BILIRUBINUR NEGATIVE 06/12/2022 11:10 AM BILIRUBINUR NEGATIVE 10/31/2010 12:33 PM GLUCOSEU NEGATIVE 06/12/2022 11:10 AM GLUCOSEU NEGATIVE 10/31/2010 12:33 PM KETUA NEGATIVE 06/12/2022 11:10 AM AMORPHOUS 2+ 06/12/2022 11:10 AM HgBA1c: No results found for: LABA1C Lactic Acid: Lab Results Component Value Date/Time LACTA 1.3 09/02/2022 07:35 PM LACTA 1.3 06/21/2022 12:30 PM LACTA 1.5 05/08/2022 11:30 PM Troponin: No results for input(s): TROPONINI in the last 72 hours. CRP: No results for input(s): CRP in the last 72 hours. Radiology/Imaging: XR ABDOMEN FOR NG/OG/NE TUBE PLACEMENT Final Result Satisfactory positioning of the enteric tube with distal tip and side hole overlying proximal stomach. XR ABDOMEN (KUB) (SINGLE AP VIEW) Final Result Preferential distention of small-bowel loops compatible with partial small bowel obstruction, degree of distention unchanged from prior examination. Contrast material incidentally noted in the bladder nodule from prior CT. RECOMMENDATION: Continued radiographic monitoring. XR ABDOMEN FOR NG/OG/NE TUBE PLACEMENT Final Result Satisfactory position of the enteric tube. CT ABDOMEN PELVIS W IV CONTRAST Additional Contrast? None Final Result Findings compatible with distal small bowel obstruction with suspected transition point in the right lower quadrant. No pneumatosis or free air. ASSESSMENT / PLAN: MEDICAL DECISION MAKING: Primary Problem(s): SBO (small bowel obstruction) (HCC) Differential diagnoses: Ileus Condition is a chronic illness with exacerbation, progression or side effects of treatment Condition is stable Treatment plan: Consultation: General surgery Imaging: Abdominal films daily Medications: IV Protonix IV fluids Medication Monitoring / High Risk Medications: none NG to low intermittent suction Seizure disorder Condition is a chronic stable condition Treatment plan: Continue current treatment Imaging: no further imaging studies ordered today Medications: IV Keppra IV Vimpat Nutrition status: at risk for malnutrition Subacute Nurse consult initiated Hospital Prophylaxis: DVT: Lovenox Stress Ulcer: PPI Disposition: Shared decision making: All test results, treatment options and disposition options were discussed with the patient today Social determinants of health that may impact management: none Code status: Full Code Disposition: Discharge plan is home [facility] Advanced Care Planning documentation: [x] I have confirmed that the patient's Advance Care Plan is present, Code Status is documented, orsurrogate decision maker is listed in the patient's medical record [If yes , STOP HERE] [] The patient's Advance Care Plan is NOT present because: [] I confirmed today that the patient does not wish or was not able to name a surrogate decision maker or provide and advance care plan. [] Hospice care is currently being provided or has been provided within the calendar year. [] I did NOT confirm today the presence of an Advance Care Plan or surrogate decision maker documented within the patient's medical record. [DOES NOT SATISFY [facility] PERFORMANCE] Dorota Woodson, RAISA - OTONIEL , CRANKSHAFT STRAIGHTENER, BREAKER UP-C [facility] 09/04/2022, 6:53 AM Associated attestation - Lyla Zepeda MD - 09/04/2022 8:43 PM EDT Images from the original note were not included. [address] , [place], [place], [address] Attestation Patient: Amol Taylor Date of Admission: 09/02/2022 5:58 PM Hospital Day # 2 Date of Evaluation: 09/04/2022 I personally evaluated and examined the patient [id number] in conjunction with the PA/BREAKER UP and agree with the management and dispostition of the patient. Please see the PA/BREAKER UP's note for full details.My gee findings are: SUBJECTIVE: Patient seen for follow up of SBO (small bowel obstruction) ([facility]). Patient seen and examined at thebed side , no new acute events overnight and no new complains this morning. He states that he is fine this morning. He denies being in any pain. The NG had to be replaced and placement was confirmed. Notes from nursing staff and Consults had been reviewed, and the overnight progress had been check ed with the nursing staff as well. OBJECTIVE: Vitals: Temp: 99.6 F (37.6 C) BP: (!) 150/63 Respirations: 22 Pulse: 92 SpO2: 94 % Weight Wt Readings from Last 3 Encounters: 09/04/22 191 lb 5.8 oz (86.8 kg) 06/23/22 182 lb (82.6 kg) 06/15/22 182 lb 15.7 oz (83 kg) Body mass index is 31.84 kg/m . 24HR INTAKE/OUTPUT: Intake/Output Summary (Last 24 hours) at 09/04/20222040 Last data filed at 09/04/2022 1801 Gross per 24 hour Intake 1739.3 ml Output 1575 ml Net 164.3 ml Exam: GEN: Awake, alert and oriented to person and place only. EYES: EOMI, pupils equal NECK: Supple. No lymphadenopathy. No carotid bruit CVS: regular rate and rhythm, no audible murmur PULM: CTA, no wheezes, rales or rhonchi, no acute respiratory distress ABD: Bowels sounds normal. Abdomen is soft. No distention. no tenderness to palpation. EXT: no edema bilaterally . No calf tenderness. NEURO: Moves all extremities. Motor and sensory are grossly intact SKIN: No rashes. No skin lesions. DATA: Complete Blood Count: Recent Labs 09/02/22193409/03/2232 09/04/22 0550 WBC 14.9* 11.5* 12.8* RBC 4.24 3.74* 3.39* HGB 13.7 12.1* 11.1* HCT 41.5 36.8* 33.4* MCV 97.9 98.4 98.5 RDW 13.1 13.2 13.2 PLT 245 206 170 Recent Labs 09/02/22193409/03/2232 09/04/22 0550 SEGS 86* 72* 79* NEUTROABS 12.71* 8.20* 10.07* LYMPHOPCT 9* 20* 13* LYMPHSABS 1.33 2.31 1.71 MONOPCT 5 7 7 EOSRELPCT 0* 1 0* BASOPCT 0 0 1 IMMGRAN 0 0 0 CMP: Lab Results Component Value Date GLUCOSE 90 09/04/2022 BUN 21 09/04/2022 CREATININE 0.79 09/04/2022 NA 143 09/04/2022 K 3.8 09/04/2022 CALCIUM 8.8 09/04/2022 CL 106 09/04/2022 CO2 26 09/04/2022 PROT 6.9 09/04/2022 LABALBU 3.7 09/04/2022 BILITOT 0.6 09/04/2022 ALKPHOS 110 09/04/2022 ALT 13 09/04/2022 AST 13 09/04/2022 UA: Lab Results Component Value Date COLORU Yellow 06/12/2022 SPECGRAV 1.010 06/12/2022 WBCUA 2 TO 5 06/12/2022 RBCUA 0 TO 2 06/12/2022 EPITHUA 0 TO 2 06/12/2022 LEUKOCYTESUR TRACE (A) 06/12/2022 GLUCOSEU NEGATIVE 06/12/2022 KETUA NEGATIVE 06/12/2022 PROTEINU NEGATIVE 06/12/2022 HGBUR NEGATIVE 06/12/2022 CASTUA NOT REPORTED 12/05/2018 CRYSTUA NOT REPORTED 12/05/2018 BACTERIA 2+ (A) 06/12/2022 YEAST NOT REPORTED 12/05/2018 Lactic Acid: Lab Results Component Value Date/Time LACTA 1.3 09/02/2022 07:35 PM LACTA 1.3 06/21/2022 12:30 PM LACTA 1.5 05/08/2022 11:30 PM High Sensitivity Troponin: No results for input(s): TROPHS in the last 72 hours. Radiology/Imaging: XR ABDOMEN (2 VIEWS) Final Result No change in gaseous distension in the intestinal tract. NG tube terminates in the stomach. XR ABDOMEN FOR NG/OG/NE TUBE PLACEMENT Final Result Satisfactory positioning of the enteric tube with distal tip and side hole overlying proximal stomach. XR ABDOMEN (KUB) (SINGLE AP VIEW) Final Result Preferential distention of small-bowel loops compatible with partial small bowel obstruction, degree of distention unchanged from prior examination. Contrast material incidentally noted in the bladder nodule from prior CT. RECOMMENDATION: Continued radiographic monitoring. XR ABDOMEN FOR NG/OG/NE TUBE PLACEMENT Final Result Satisfactory position of the enteric tube. CT ABDOMEN PELVIS W IV CONTRAST Additional Contrast? None Final Result Findings compatible with distal small bowel obstruction with suspected transition point in the right lower quadrant. No pneumatosis or free air. XR ABDOMEN (2 VIEWS) (Results Pending) ASSESSMENT: Principal Problem: SBO (small bowel obstruction) (HCC) Active Problems: Moderate malnutrition (HCC) Small bowel obstruction (HCC) Seizures (HCC) Chronic MR (mental retardation), severe Epilepsy (HCC) Resolved Problems: * No resolved hospital problems. * PLAN: I agree with the plan as outlined in the BREAKER UP/PA's note Disposition: Discharge plan is pending GS is following closely Obtain imaging as indicated Please note that this chart was generated using voice recognition [employer] dictation software. Although every effort was made to ensure the accuracy of this automated sidewalk repairer, some errors in sidewalk repairer may have occurred. Lyla Zepeda MD 09/04/2022 8:41 PM * Amarilys Nelson RCP - 09/04/2022 12:45 AM EDT Parking Enforcement Specialist asked to help suction pt. Pt coughs when asked and has a good cough. Parking Enforcement Specialist orally suctionedback of patient's mouth for some scant clear white secretions. Pt tolerated well. * Kathy Llamas RN - 09/04/2022 12:15 AM EDT Parking Enforcement Specialist at bedside at this time to perform reassessment. Patient is lying in bed at this time. Vitalsigns taken and assessment completed at this time. Patient is alert and oriented and has no complaints of pain. Incontinence care completed at this time and patient gown and bed pad changed. Patient denies any further needs at this time. Call light within reach, bed alarm on for safety, care ongoing. * Kathy Llamas RN - 09/03/2022 6:45 PM EDT Parking Enforcement Specialist at chairside at this time to perform initial shift assessment. Patient is sitting up in the chair at this time. Vital signs taken and assessment completed at this time. Patient is alert and oriented and has no complaints of pain at this time. Patient denies any further needs at this time. Call light within reach, chair alarm on for safety, care ongoing. * Venkat Leslie RN - 09/03/2022 5:31 PM EDT NG tube came out while moving the patient, new NG placed and verified by xray. * Crispin Cruz PT - 09/03/2022 11:59 AM EDT Physical Therapy Facility/Department: [facility] Physical Therapy Initial Assessment Name: Amol Taylor : 1955 Date of Service: 09/03/2022 Discharge Recommendations: Continue to assess pending progress PT Equipment Recommendations Equipment Needed: No Patient Diagnosis(es): The encounter diagnosis was Small bowel obstruction (HCC). Past Medical History: has a past medical history of MR (mental retardation), SBO (small bowel obstruction) (HCC), Seizures (HCC), and Ventral hernia. Past Surgical History: has a past surgical history that includes Abdomen surgery (2012, 2013); laparoscopy (10/19/13); laparotomy (10/19/13); cast application (Left); Hydrocele surgery (10/2015); Vagusnerve stimulator insertion; and Vagus nerve stimulator insertion (12/14/2015). Assessment Body Structures, Functions, Activity Limitations Requiring Skilled Therapeutic Intervention: Decreased functional mobility ;Decreased ADL status;Decreased body mechanics;Decreased strength;Decreased safe awareness;Decreased cognition;Decreased endurance;Decreased balance;Decreased high-level IADLs Assessment: Pt is a pleasant 67 yo man who presents with a small bowl obstruction. Pt is currently MoDA for bed mobility and MoDA x2 for transfers with RW, although pt did not demonstrate safe use ofRW so gait was held at this time. Pt demonstrates 4/5 - 4+/5 BLE strength grossly as well as fair-poor standing balance. Pt would benefit from skilled PT to address these functional deficits and improve independence and safety of functional mobility. Treatment Diagnosis: Generalized Weakenss Therapy Prognosis: Good Decision Making: Medium Complexity Requires PT Follow-Up: Yes Activity Tolerance Activity Tolerance: Patient tolerated evaluation without incident Plan Physcial Therapy Plan General Plan: 2 times a day 7 days a week (1x daily on weekends) Current Treatment Recommendations: Strengthening, ROM, Balance training, Functional mobility training, Transfer training, Endurance training, Neuromuscular re-education, Home exercise program, Positioning, Therapeutic activities Safety Devices Type of Devices: Left in bed, Nurse notified, Call light within reach, Bed alarm in place Restrictions Restrictions/Precautions Restrictions/Precautions: Fall Risk, General Precautions, Other (comment) Subjective General Chart Reviewed: Yes Patient assessed for rehabilitation services?: Yes Referring Practitioner: Gualberto Referral Date : 09/02/22 Diagnosis: Small Bowel Obstruction Follows Commands: Within Functional Limits Subjective Subjective: Pt is pleasant and agreeable to therapy eval at this time Social/Functional History Social/Functional History Lives With: (alf) Has the patient had two or more falls in the past year or any fall with injury in the past year?: No ADL Assistance: Needs assistance Ambulation Assistance: Needs assistance Transfer Assistance: Needs assistance Active Customer Loyalty Representative: No Additional Comments: Pt is a poor historian, however, per chart review and nursing, patient lives in alf, able to complete transfers and ambulation short distances with assistance. Pt. states he uses a wheelchair. Vision/Hearing Vision Vision: Within Functional Limits Hearing Hearing: Within functional limits Cognition Orientation Overall Orientation Status: Impaired Orientation Level: Oriented to person Cognition Overall Cognitive Status: Exceptions Cognition Comment: patient able to follow simple commands with cueing, decreased safety and somewhat impulsive Objective Pulse: 85 Heart Rate Source: Monitor BP: 117/72 BP Location: Left upper arm BP Method: Automatic Patient Position: Semi fowlers MAP (Calculated): 87 Respirations: 18 SpO2: 94 % O2 Device: None (Room air) Observation/Palpation Posture: Fair AROM RLE (degrees) RLE AROM: WFL AROM LLE (degrees) LLE AROM : WFL Strength RLE Comment: 4/5 grossly Strength LLE Comment: 4/5 grossly Bed mobility Supine to Sit: Moderate assistance Sit to Supine: Moderate assistance Transfers Sit to Stand: Moderate Assistance;2 Person Assistance Stand to Sit: Moderate Assistance;2 Person Assistance Bed to Chair: Moderate assistance;2 Person Assistance Ambulation WB Status: FWB Ambulation Comments: Gait not appropiate at this time d/t difficulty safely using RW and following commands Balance Posture: Good Sitting - Static: Good Sitting - Dynamic: Fair Standing - Static: Fair Standing - Dynamic: Poor Exercise Treatment: Bed mobility, transfers, standing balance, LE strengthening AM-PAC Score AM-PAC Inpatient Mobility without Stair Climbing Raw Score : 12 (09/03/221158) AM-PAC Inpatient without Stair Climbing T-Scale Score : 37.26 (09/03/221158) Mobility Inpatient CMS 0-100% Score: 63.03 (09/03/221158) Mobility Inpatient without Stair CMS G-Code Modifier : CL (09/03/221158) Goals Short Term Goals Time Frame for Short Term Goals: 20 days Short Term Goal 1: Pt to be CGA with RW for tranfsers to improve functional mobility and safety of transfers Short Term Goal 2: Pt to be able to tolerate 20-30 mins therex/act to improve functional capacity for ADLs Short Term Goal 3: Pt to be SUP with bed mobility to improve safety and independence of care tasks. Education Patient Education Education Given To: Patient Education Provided: Role of Therapy;Plan of Care Education Method: Verbal Barriers to Learning: None Education Outcome: Verbalized understanding Therapy Time Individual Concurrent Group Co-treatment Time In 1000 Time Out 1020 Minutes 20 Timed Code Treatment Minutes: 19 Minutes Crispin Cruz, PT * Raya Tapia OT - 09/03/2022 11:37 AM EDT Occupational Therapy Facility/Department: [facility] Occupational Therapy Initial Assessment Name: Amol Taylor : 1955 Date of Service: 09/03/2022 Discharge Recommendations: Continue to assess pending progress Patient Diagnosis(es): The encounter diagnosis was Small bowel obstruction (HCC). Past Medical History: has a past medical history of MR (mental retardation), SBO (small bowel obstruction) (HCC), Seizures (HCC), and Ventral hernia. Past Surgical History: has a past surgical history that includes Abdomen surgery (2012, 2013); laparoscopy (10/19/13); laparotomy (10/19/13); cast application (Left); Hydrocele surgery (10/2015); Vagusnerve stimulator insertion; and Vagus nerve stimulator insertion (12/14/2015). Treatment Diagnosis: Generalized Weakness Assessment Performance deficits / Impairments: Decreased functional mobility ;Decreased ADL status;Decreased strength;Decreased cognition;Decreased balance;Decreased endurance Treatment Diagnosis: Generalized Weakness Prognosis: Good Decision Making: Medium Complexity REQUIRES OT FOLLOW-UP: Yes Activity Tolerance Activity Tolerance: Patient Tolerated treatment well Plan Occupational Therapy Plan Times Per Week: 7x/wk Times Per Day: Once a day Current Treatment Recommendations: Strengthening, Functional mobility training, Safety education & training, Balance training, Self-Care / ADL Restrictions Restrictions/Precautions Restrictions/Precautions: Fall Risk, General Precautions, Other (comment) (NG tube) Subjective General Chart Reviewed: Yes Patient assessed for rehabilitation services?: Yes Diagnosis: SBO General Comment Comments: Pt. denies pain. Social/Functional History Social/Functional History Lives With: Other (comment) ([facility]) Has the patient had two or more falls in the past year or any fall with injury in the past year?: No ADL Assistance: Needs assistance Ambulation Assistance: Needs assistance Transfer Assistance: Needs assistance Active Customer Loyalty Representative: No Additional Comments: Pt is a poor historian, however, per chart review patient lives in alf,able to complete transfers and ambulation short distances with assistance. Pt. states he uses a wheelchair. Objective Pulse: 85 Heart Rate Source: Monitor BP: 117/72 BP Location: Left upper arm BP Method: Automatic Patient Position: Semi fowlers MAP (Calculated): 87 Respirations: 18 SpO2: 94 % O2 Device: None (Room air) Safety Devices Type of Devices: Left in bed;Nurse notified;Call light within reach;Bed alarm in place ADL Feeding: NPO Feeding Skilled Clinical Factors: NG tube Grooming: Moderate assistance UE Bathing: Moderate assistance LE Bathing: Moderate assistance;Maximum assistance UE Dressing: Moderate assistance LE Dressing: Moderate assistance;Maximum assistance Toileting: Moderate assistance;Maximum assistance Bed mobility Supine to Sit: Moderate assistance Sit to Supine: Moderate assistance Transfers Stand Pivot Transfers: Moderate assistance;2 Person assistance Sit to stand: Moderate assistance;2 Person assistance Stand to sit: Moderate assistance;2 Person assistance Transfer Comments: 2 person assist for safety as patient with decreased cognition and somewhat impulsive Vision Vision: Within Functional Limits Hearing Hearing: Within functional limits Cognition Overall Cognitive Status: Exceptions Cognition Comment: patient able to follow simple commands with cueing, decreased safety and somewhat impulsive Orientation Overall Orientation Status: Impaired Orientation Level: Oriented to person Education Given To: Patient Education Provided: Role of Therapy;Plan of Care Education Method: Verbal Barriers to Learning: Cognition Education Outcome: Continued education needed LUE AROM (degrees) LUE AROM : WFL RUE AROM (degrees) RUE AROM : WFL Goals Short Term Goals Time Frame for Short Term Goals: 20 visits Short Term Goal 1: Pt. will tolerate 15 mins of BUE ther ex to increase strength for self care tasks. Short Term Goal 2: Pt. will engage in simple UB/grooming ADL's to increase (I). Short Term Goal 3: Pt. will tolerate sitting EOB while maintaining G balance to increase (I) with bedside ADL's. Short Term Goal 4: Pt. will demo standing tolerance x 2 mins with support and w/o LOB to increase safety/participation with ADL's. Therapy Time Individual Concurrent Group Co-treatment Time In 1000 Time Out 1020 Minutes 20 Raya Tapia OT * Venkat Leslie RN - 09/03/2022 6:32 AM EDT Pt vitals and assessment complete, see flowsheet. Pt A&Ox3, breathing normal.NG tube remains inplace. Pt denies pain or any further needs, bed alarm on, call light within reach, will continue tomonitor. * Mendy Lerner RN - 09/03/2022 4:46 AM EDT Pt resting in bed awake. Assessment and vital signs as charted. Pt denies pain at this time. Pt is A & O x 3. NG tube remains in place. Bath done at this time. IV fluids infusing as ordered. Pt denies any other needs. Call light in reach. Bed alarm on. Will continue to monitor. * Mendy Lerner RN - 09/02/2022 11:14 PM EDT [facility] for [facility]. NG tube in place on admission. Assessment and vital signs as charted. Pt denies pain at this time. Pt is alert and oriented x 3. Pt is from a alf. Navigator to be completed. Orders to be reviewed. Bed alarm on. Call light in reach. Will continue to monitor. [facility]* Discharge Instr - JOYCE* KRYSTIN Farley - 09/07/2022 2:14 PM EDT Continuity of Care Form Patient Name: Amol Taylor : 1955 Admit date: 09/02/2022 Discharge date: 09/07/2022 Code Status Order: Full Code Advance Directives: Admitting Physician: Lyla Zepeda MD PCP: Carson Matamoros MD Discharging Nurse: Carlie Sanchez RN Discharging Hospital Unit/Room#: 0316/0316-01 Discharging Unit Emergency Contact: Extended Emergency Contact Information Primary Emergency Contact: Susan Smith [facility] Relation: Legal Guardian Secondary Emergency Contact: Eliazar Taylor Relation: Brother/Sister Past Surgical History: Past Surgical History: Procedure Laterality Date ABDOMEN SURGERY 2012, 2013 Bowel Obstruction X2 CAST APPLICATION Left Lt. Ankle , X3 HYDROCELE EXCISION 10/2015 LAPAROSCOPY 10/19/13 with DANIEL LAPAROTOMY 10/19/13 with partial cecectomy VAGAL NERVE STIMULATION placed, then replaced VAGAL NERVE STIMULATION 12/14/2015 replaced generator battery Immunization History: Immunization History Administered Date(s) Administered TDaP, ADACEL (age 10y-64y), BOOSTRIX (age 10y+), IM, 0.5mL 03/04/2013 Active Problems: Patient Active Problem List Diagnosis Code Small bowel obstruction (HCC) K56.609 Seizures (HCC) Chronic R56.9 MR (mental retardation), severe F72 Epilepsy (HCC) G40.909 SBO (small bowel obstruction) (HCC) K56.609 Mild malnutrition (HCC) E44.1 Isolation/Infection: Isolation No Isolation Patient Infection Status None to display Nurse Assessment: Last Vital Signs: BP 122/66 Pulse 58 Temp 97.4 F (36.3 C) (Temporal) Resp 22 Ht 5' 5 (1.651 m) Wt 179 lb (81.2 kg) SpO2 100% BMI 29.79 kg/m Last documented pain score (0-10 scale): Pain Level: 0 Last Weight: Wt Readings from Last 1 Encounters: 09/07/22 179 lb (81.2 kg) Mental Status: alert and oriented to self and place, disoriented to situation and time, hx of MR IV Access: - None Nursing Mobility/ADLs: Walking Assisted Transfer Assisted Bathing Dependent Dressing Dependent Toileting Dependent Feeding Assisted Airplane Engineer Dependent Med Delivery whole and prefers mixed with chocolate ice cream Wound Care Documentation and Therapy: Incision 12/14/15 Chest Left (Active) Number of days: 2459 Elimination: Continence: Bowel: No Bladder: No Urinary Catheter: None Colostomy/Ileostomy/Ileal Conduit: No Date of Last BM: 09/07/2022 No intake or output data in the 24 hours ending 09/07/22 1423 I/O last 3 completed shifts: In: 1532.6 [P.O.:480; I.V.:1052.6] Out: - Safety Concerns: At Risk for Falls, History of Seizures, and Aspiration Risk Impairments/Disabilities: Contractures - intermittent in all four extremities Nutrition Therapy: Current Nutrition Therapy: - Oral Diet: Dysphagia - Soft and Bite Sized and no caffeine Routes of Feeding: Oral Liquids: Parcoal Thick Liquids Daily Fluid Restriction: no Last Modified Barium Swallow with Video (Video Swallowing Test): not done Treatments at the Time of Hospital Discharge: Respiratory Treatments: as needed Oxygen Therapy: is not on home oxygen therapy. Ventilator: - No ventilator support Rehab Therapies: Physical Therapy and Occupational Therapy Weight Bearing Status/Restrictions: No weight bearing restrictions Other Medical Equipment (for information only, NOT a DME order): walker Other Treatments: as needed Patient's personal belongings (please select all that are sent with patient): clothing RN SIGNATURE: CASE MANAGEMENT/SOCIAL WORK SECTION Inpatient Status Date: 09/02/22 Readmission Risk Assessment Score: Readmission Risk Risk of Unplanned Readmission: 29 Discharging to Facility/ Agency Name: [facility] Address:[address] [place] [address] Fax: Dialysis Facility (if applicable) Name: Address: Dialysis Schedule: Phone: Fax: Adult [facility] Pediatric Neurologist/Electrical Contacts Adjuster signature: PHYSICIAN SECTION Prognosis: {Prognosis:8631190769} Condition at Discharge: { Patient Condition:632951370} Rehab Potential (if transferring to Rehab): {Prognosis:3504059923} Recommended Labs or Other Treatments After Discharge: Physician Certification: I certify the above information and transfer of Amol Taylor is necessaryfor the continuing treatment of the diagnosis listed and that he requires alf for greater 30days. Update Admission H&P: {CHP DME Changes in HandP:710601401} PHYSICIAN SIGNATURE: {Esignature:340595953} documented in this encounterB[facility]23 [place] [address] AMOL TYALOR Date of : 1955 67 Years Male Attending Kari Sales MD Date of Admission 06/24/22 Date of Discharge 06/27/2022 DIAGNOSES: bowel dysmotility epilepsy hypokalemia PROCEDURES: Procedures No Procedures Documented DISCHARGE MEDICATIONS: DISCHARGE MEDICATIONS Medication List Active Medications Ordered bisacodyl: 10 mg, 1 supp, Rectal, Daily. enoxaparin: 40 mg, 0.4 mL, SubCutaneous, BID. Ensure: 237 mL, Oral, TIDWM. finasteride: 5 mg, 1 tab(s), Oral, Bedtime. ketorolac: 15 mg, 1 mL, IV Push, q6hr, PRN: Pain. lacosamide: 150 mg, 3 tab(s), Oral, BID. lamotrigine: 400 mg, 2 tab(s), Oral, Daily. lamotrigine: 600 mg, 3 tab(s), Oral, Bedtime. latanoprost ophthalmic: 1 drop(s), OPTH, Bedtime. levetiracetam: 2,000 mg, 4 tab(s), Oral, Bedtime. levetiracetam: 1,500 mg, 3 tab(s), Oral, Daily. lorazepam: 1 mg, 0.5 mL, IV Push, q8hr, PRN: Seizure. meclizine: 25 mg, 2 tab(s), Oral, q8hr, PRN: Dizziness. melatonin: 3 mg, 1 tab(s), Oral, Bedtime, PRN: Insomnia. metoclopramide: 5 mg, 1 tab(s), Oral, QIDACHS. ondansetron: 4 mg, 2 mL, IV Push, q6hr, PRN: Nausea/Vomiting. oxybutynin: 10 mg, 2 tab(s), Oral, Daily. primidone: 250 mg, 5 tab(s), Oral, Daily. primidone: 375 mg, 7.5 tab(s), Oral, Bedtime. senna: 8.6 mg, 1 tab(s), Oral, BID. Sodium Chloride 0.9% intravenous solution 250 mL: 20 mL/hr, IV, Stop: 07/24/22 14:21:00 EDT. tamsulosin: 0.4 mg, 1 cap(s), Oral, BID. trazodone: 50 mg, 1 tab(s), Oral, Bedtime. Prescribed metoclopramide: 5 mg, 1 tab(s), Oral, QIDACHS, for 14 day(s), not to exceed 12 weeks duration. 30 minutes before meals and at bedtime. Will need to follow-up with PCP and/or GI for further prescription., 56 tab(s), 0 Refill(s). Documented acetaminophen: 650 mg, Oral, q4hr, PRN: as needed for pain, 0 Refill(s). calcium carbonate: 500 mg, 1 tab(s), Chewed, BID, 15 tab(s), 0 Refill(s). carbamide peroxide otic: 4 drop(s), Otic, Bedtime, INSTILL 4 DROPS INTO BILATERAL EARS AT BEDTIME ONCE A MONTH THEN APPLY COTTON SWABS TO EARS, THEN IRRIGATE WITH ROOM TEMP H20 THEN NEXT MORNING., 15 mL, 0 Refill(s). cholecalciferol: 25 mcg, 1 tab(s), Oral, Daily, 0 Refill(s). diazepam: 12.5-20mg kit, Rectal, Once, PRN for seizure activity >15 minutes, 0 Refill(s). finasteride: 5 mg, 1 tab(s), Oral, Bedtime, 0 Refill(s). hydrOXYzine: 25 mg, 1 tab(s), Oral, q12hr, PRN: as needed for itching, 0 Refill(s). lacosamide: 150 mg, 1 tab(s), Oral, BID, 0 Refill(s). lamotrigine: 600 mg, 3 tab(s), Oral, Bedtime, 0 Refill(s). lamotrigine: 400 mg, 2 tab(s), Oral, qAM, 0 Refill(s). latanoprost ophthalmic: 1 drop(s), Eye-Both, Bedtime, 0 Refill(s). levetiracetam: 2,000 mg, 2 tab(s), Oral, Bedtime, 0 Refill(s). levetiracetam: 1,500 mg, 2 tab(s), Oral, Daily, 0 Refill(s). lorazepam: 0.5 mg, 1 tab(s), Oral, q8hr, PRN: Other (see comment), 0 Refill(s). meclizine: 25 mg, 1 tab(s), Oral, q8hr, FOR DIZZINESS, PRN: Dizziness, 0 Refill(s). melatonin: 3 mg, 1 tab(s), Oral, Once a day (at bedtime), PRN: for insomnia. ondansetron: 4 mg, 1 tab(s), Oral, q6hr, PRN: Nausea/Vomiting, 0 Refill(s). oxybutynin: 10 mg, 1 tab(s), Oral, Daily, 0 Refill(s). polyethylene glycol 3350: 17 gm, Oral, Daily, 0 Refill(s). primidone: 375 mg, 1.5 tab(s), Oral, Once a day (at bedtime), 0 Refill(s). primidone: 250 mg, 1 tab(s), Oral, qAM, 0 Refill(s). senna: 8.6 mg, 1 tab(s), Oral, BID, 0 Refill(s). tamsulosin: 0.4 mg, 1 cap(s), Oral, BID, 0 Refill(s). trazodone: 50 mg, 1 tab(s), Oral, Bedtime, 0 Refill(s). Medications Inactivated in the Last 72 Hours bisacodyl: 10 mg, 1 supp, Rectal, Daily, PRN: Constipation. calcium carbonate: Oral, TID, 0 Refill(s). Dextrose 5% in Lactated Ringers intravenous solution: Misc, Once. Dextrose 5% in Lactated Ringers intravenous solution 1,000 mL: 75 mL/hr, IV, Stop: 07/24/22 12:51:00 EDT. diphenhydrAMINE: 25 mg, 1 cap(s), Oral, q4hr, FOR ITCHING/RASH, 0 Refill(s). finasteride: 5 mg, 1 tab(s), Oral, Daily, 0 Refill(s). glucose: Misc, Once. glucose: 50 mL, IV Push, Once. HYDROmorphone: 0.2 mg, 0.2 mL, IV Push, q4hr, PRN: Pain 4-7. HYDROmorphone: 0.5 mg, 0.5 mL, IV Push, q4hr, PRN: Pain 8-10. hydrOXYzine: 25 mg, 1 tab(s), Oral, QID, 0 Refill(s). lacosamide: 150 mg, 1 tab(s), Oral, BID, 0 Refill(s). lacosamide: 300 mg, 2 tab(s), Oral, qAM, 0 Refill(s). Lactated Ringers Injection 1,000 mL: 75, IV, Stop: 07/24/22 7:00:00 EDT. lamotrigine: 600 mg, Oral, Bedtime, 0 Refill(s). latanoprost ophthalmic: 0.005 %, Eye-Both, qPM, 0 Refill(s). levetiracetam: 1500, Oral, BID, 0 Refill(s). levetiracetam: 2,000 mg, Oral, Bedtime, 0 Refill(s). levetiracetam: 500 mg, 1 tab(s), Oral, qAM, 0 Refill(s). levetiracetam + Sodium Chloride 0.9% intravenous solution 100 mL: 1,500 mg, 15 mL, 460 mL/hr, IV Piggyback, Onc (more content not included)... [facility] CenterComment on above:Result Comment: Electronically Signed By: Laney Mitchell PA-C\.br\Date and Time Signed: 06/27/22 11:43 EDT\.br\Electronically Co-Signed By: Leonel Rowland MD\.br\Date and Time Co- Signed: 06/27/22 15:45 [id number] NoteCRM entered the room to discuss dc planning. PCP, DME and insurance discussed. Patient is alert andinvolved in plan of care. Contact information provided and whiteboard updated. Pt will dc today perTrauma. Call to [facility] to let them know pt will need transport. [place] number given to RN and Dc RN. No further needs. ANt dc today. CRM to follow. CRM called and spoke to Korina because they [facility] to transport pt. CRM discussed that Medicaidwill not cover transport if pt is able to stand and pivot, which he is. This was explained to pt's nurse Leilani when CRM called back to relay information.[facility], Cancer CenterComment on above:Result Comment: Electronically Signed By: Mavis Eng.br\Date and Time Signed: 06/27/22 12:01 [id number] Hospital Discharge instructions Patient Education 06/27/2022 11:07:19 Ileus Ileus Ileus is a condition that happens when the intestines, which are also called bowels, stop working correctly. The intestines are hollow organs that digest food after the food leaves the stomach. Theseorgans are long, muscular tubes that connect the stomach to the rectum. When ileus occurs, the muscular contractions that cause food to move through the intestines do not happen as they normally would. If the intestines stop working, food cannot pass through to get digested. This condition is a serious problem that usually requires hospitalization. It can cause symptoms such as nausea, abdominal pain, and bloating. Ileus can last from a few hours to a few days. What are the causes? This condition may be caused by: Surgery on the abdomen. An infection or inflammation in the abdomen. This includes inflammation of the lining of the abdomen (peritonitis). Infection or inflammation in other parts of the body, such as pneumonia or pancreatitis. Passage of gallstones or kidney stones. Damage to the nerves or blood vessels that go to the intestines. A collection of blood within the abdominal cavity. Imbalance in the salts in the blood (electrolytes). Injury to the brain or spinal cord. Medicines. Many medicines, including strong pain medicines, can cause ileus or make it worse. If the intestines stop working because of a blockage, that is a different condition that is called a bowel obstruction. What are the signs or symptoms? Symptoms of this condition include: Bloating of the abdomen. Pain or discomfort in the abdomen. Poor appetite. Nausea and vomiting. Lack of normal bowel sounds, such as growling in the stomach. How is this diagnosed? This condition may be diagnosed with: A physical exam and medical history. X-rays or a CT scan of the abdomen. You may also have other tests to help find the cause of the condition. How is this treated? This condition may be treated by: Resting the intestines until they start to work again. This is often done by: ?Stopping oral intake of food and drink. You will be given fluid through an IV to prevent dehydration. ?Placing a small tube (nasogastric tube or NG tube) that is passed through your nose and into your stomach. The tube is attached to a suction device and keeps the stomach emptied out. This allows thebowels to rest and helps to reduce nausea and vomiting. Correcting any electrolyte imbalance by giving supplements in the IV fluid. Stopping any medicines that might make ileus worse. Treating any condition that may have caused ileus. Follow these instructions at home: Eating and drinking Follow instructions from your health care provider about: ?What to eat and drink. You may be told to start eating a bland diet. Over time, you may slowly resume a more normal, healthy diet. ?How much to eat and drink. You should eat small meals often and stop eating when you feel full. Avoid alcohol. General instructions Take lxps-uin-yijhukt and prescription medicines only as told by your health care provider. Rest as told by your health care provider. Avoid sitting for a long time without moving. Get up to take short walks every 1 2 hours. Ask for help if you feel weak or unsteady. Keep all follow-up visits as told by your health care provider. This is important. Contact a health care provider if: You have nausea, vomiting, or abdominal discomfort. You have a fever. Get help right away if: You have severe abdominal pain or bloating. You cannot eat or drink without vomiting. Summary Ileus is a condition that happens when the intestines, which are also called bowels, stop working correctly. When ileus occurs, the muscular contractions that cause food to move through the intestines do not happen as they normally would. Ileus can cause symptoms such as nausea, abdominal pain, and bloating. Treatment may involve getting IV fluids and having a nasogastric tube placed to keep your stomach emptied out until the intestines start working again. This information is not intended to replace advice given to you by your health care provider. Make sure you discuss any questions you have with your health care provider. Document Revised: 08/31/2021 Document Reviewed: 08/31/2021 [employer] Patient Education 2022 [employer]. Follow Up Care 06/23/2022 13:38:57 With:trauma clinic Address: [address] [facility] [address] floor, [address] [place] [address]- [phone] When: only if needed Comments:Please call to make follow up appointment With:RAINER JAVIER Address: [address] [place] [address] [facility] (1) When:1 to 2 weeks Comments:Call for followup appointment [facility]04-24-2023 Evaluation + Plan noteExtracted from: Title:Progress/SOAP Note Author:Jesus Manuel Mitchell PA-C Date:06/26/22 1. Generalized dysmotility o f intestine (K59.89: Other specified functional intestinal disorders) Ordered: Regular Diet 2. Epilepsy (G40.909: Epilepsy, unspecified, not intractable, without status epilepticus) Ordered: Regular Diet 3. BPH with urinary obstruction (N40.1: Benign prostatic hyperplasia with lower urinary tract symptoms) Ordered: Regular Diet 4. Development delay (R62.50: Unspecified lack of expected normal physiological development in childhood) Ordered: Regular Diet 5. Hypokalemia (E87.6: Hypokalemia) Ordered: Regular Diet 67 y/o male with bowel dysmotility. - Tolerating full liquid diet. + Flatus, will advance to soft diet today. - Continue reglan 5mg scheduled, can increase to 10 if needed - Replace electrolytes as needed - D/C MIVF, blood glucose wnl today - having urinary retention - If have to straight cath multiple times, place will. Resumed all home BPH meds yesterday - finasteride, oxybutynin, flomax - Continue home lacosamide, keppra, lamotrigine, primidone - Nightly trazadone, PRN melatonin per home meds - SCDs, Lovenox for DVT prophylaxis - Remain on RNF Laney Mitchell PA-C Trauma Surgery/Surgical Critical Care/Emergency General Surgery *For urgent issues arising after 4PM during the week or on weekends/holiday, please page the trauma/EGS attending qa automation developer. This patient's plan of care was discussed with Trauma/Emergency General Surgery attending, Dr. Rowland Extracted from: Title:Progress/SOAP Note Author:Henrry MOELLER, Mary Mehta. Date:06/25/22 1. Generalized dysmotility o f intestine (K59.89: Other specified functional intestinal disorders) 2. Epilepsy (G40.909: Epilepsy, unspecified, not intractable, without status epilepticus) 3. BPH with urinary obstruction (N40.1: Benign prostatic hyperplasia with lower urinary tract symptoms) 4. Development delay (R62.50: Unspecified lack of expected normal physiological development in childhood) 5. Hypokalemia (E87.6: Hypokalemia) Orders: Dextrose 5% in Lactated Ringers intravenous solution, Soln-IV, Misc, Once, Stop date 06/24/22 12:57:35 EDT, Physician Stop, 06/24/22 12:57:35 EDT enoxaparin, 40 mg = 0.4 mL, Injection, SubCutaneous, q12hr for 30 day(s), Stop date 07/25/22 12:59:00 EDT, Routine, Start date 06/25/22 13:00:00 EDT, 06/25/22 12:05:00 EDT Ensure, 237 mL, Liquid, Oral, TIDWM, Routine, Start date 06/24/22 17:00:00 EDT, Over Ice finasteride, 5 mg = 1 tab(s), Tab, Oral, Bedtime, Routine, Start date 06/24/22 21:00:00 EDT, 06/24/22 14:28:00 EDT glucose, 50 mL, Soln-IV, IV Push, Once, Stop date 06/24/22 13:00:00 EDT, Routine, Start date 06/24/22 13:00:00 EDT glucose, Soln-IV, Misc, Once, Stop date 06/24/22 12:56:55 EDT, Physician Stop, 06/24/22 12:56:55 EDT ketorolac, 15 mg = 1 mL, Injection, IV Push, q6hr PRN Pain for 5 day(s), Stop date 06/29/22 14:11:00 EDT, Routine, Start date 06/24/22 14:12:00 EDT, 06/24/22 14:12:00 EDT lacosamide, 150 mg = 3 tab(s), Tab, Oral, BID, Routine, Start date 06/24/22 21:00:00 EDT, 06/24/22 14:28:00 EDT lamotrigine, 600 mg = 3 tab(s), Tab, Oral, Bedtime, Routine, Start date 06/24/22 21:00:00 EDT, 06/24/22 14:06:00 EDT lamotrigine, 400 mg = 2 tab(s), Tab, Oral, Daily, Routine, Start date 06/25/22 9:00:00 EDT, 06/24/22 14:06:00 EDT latanoprost ophthalmic, 1 drop(s), Soln-Opth, OPTH, Bedtime, Routine, Start date 06/24/22 21:00:00 EDT, both eyes levetiracetam, 2,000 mg = 4 tab(s), Tab, Oral, Bedtime, Routine, Start date 06/24/22 21:00:00 EDT, 06/24/22 14:07:00 EDT levetiracetam, 1,500 mg = 3 tab(s), Tab, Oral, Daily, Routine, Start date 06/25/22 9:00:00 EDT, 06/24/22 14:08:00 EDT levetiracetam + Sodium Chloride 0.9% intravenous solution 100 mL, 1,500 mg = 15 mL, Soln-IV, IV Piggyback, Once, Stop date 06/24/22 13:43:00 EDT, STAT, Start date 06/24/22 13:43:00 EDT, 460 mL/hr, Infuse over 15 minute(s) lorazepam, 1 mg = 0.5 mL, Injection, IV Push, q8hr PRN Seizure, Routine, Start date 06/24/22 13:44:00 EDT, 06/24/22 13:44:00 EDT magnesium sulfate + Generic Diluent 100 mL, 4 gram = 100 mL, Soln-IV, IV Piggyback, Once, Stop date 06/24/22 15:00:00 EDT, Routine, Start date 06/24/22 15:00:00 EDT, 25 mL/hr, Infuse over 4 hour(s) meclizine, 25 mg = 2 tab(s), Tab, Oral, q8hr PRN Dizziness, Routine, Start date 06/24/22 14:12:00 EDT, 06/24/22 14:12:00 EDT melatonin, 3 mg = 1 tab(s), Tab, Oral, Bedtime PRN Insomnia, Routine, Start date 06/24/22 14:12:00 EDT, 06/24/22 14:12:00 EDT metoclopramide, 5 mg = 1 tab(s), Tab, Oral, QIDACHS, Routine, Start date 06/24/22 16:30:00 EDT, 06/24/22 16:06:00 EDT oxybutynin, 10 mg = 2 tab(s), Tab-ER, Oral, Daily, Routine, Start date 06/25/22 9:00:00 EDT, 06/24/22 14:09:00 EDT potassium chloride, 40 mEq = 2 tab(s), Tab-ER, Oral, Once, Stop date 06/25/22 11:00:00 EDT, Routine, Start date 06/25/22 11:00:00 EDT, 06/25/22 10:21:00 EDT potassium chloride + Generic Diluent 100 mL, 20 mEq = 100 mL, Soln-IV, IV Piggyback, q2hr for 2 dose(s), Stop date 06/25/22 14:19:00 EDT, Routine, Start date 06/25/22 10:20:00 EDT, 50 mL/hr, Infuse over 2 hour(s) primidone, 250 mg = 5 tab(s), Tab, Oral, Daily, Routine, Start date 06/25/22 9:00:00 EDT primidone, 375 mg = 7.5 tab(s), Tab, Oral, Bedtime, Routine, Start date 06/24/22 21:00:00 EDT senna, 8.6 mg = 1 tab(s), Tab, Oral, BID, Routine, Start date 06/24/22 21:00:00 EDT, 06/24/22 14:11:00 EDT Sodium Chloride 0.9% intravenous solution, Soln-IV, Misc, Once, Stop date 06/25/22 10:47:25 EDT, Physician Stop, 06/25/22 10:47:25 EDT Sodium Chloride 0.9% intravenous solution 250 mL, 250 mL, IV, 20 mL/hr, Other (see comment), Routine, Start date 06/24/22 14:22:00 EDT, 12.5 hour(s), Total volume (mL): 250, 84.1 kg, 1.92, m2 tamsulosin, 0.4 mg = 1 cap(s), Cap, Oral, BID, Routine, Start date 06/24/22 21:00:00 EDT, 06/24/22 14:11:00 EDT trazodone, 50 mg = 1 tab(s), Tab, Oral, Bedtime, Routine, Start date 06/24/22 21:00:00 EDT, 06/24/22 14:11:00 EDT Automated Diff Capillary Glucose POC Capillary Glucose POC Capillary Glucose POC Capillary Glucose POC Capillary Glucose POC Communication Order Communication Order Communication Order Communication Order Communication Order Communication Order Physician to Nursing eGFR Full Liquid Diet Lamotrigine Level Primidone Level Routine Capillary Glucose POC Weight XR Abdomen 1 View 67 y/o male with bowel dysmotility. - Tolerating full liquid diet. Order XR abdomen to assess for recurrent bowel distention - Continue reglan 5mg scheduled, can increase to 10 if needed - Continue at full liquids with ensure TID for now - Replace hypokalemia with IV and PO formulations today - D/C MIVF, blood glucose wnl today - having urinary retention - If have to straight cath multiple times, place will. Resumed all home BPH meds yesterday - finasteride, oxybutynin, flomax - Continue home lacosamide, keppra, lamotrigine, primidone - Nightly trazadone, PRN melatonin per home meds - SCDs, Lovenox for DVT prophylaxis - Remain on RNF Future Appointments Appointment Date:02/16/2023 10:15:00 AM Scheduled Provider:Yasmani CAMARA MD Location[facility] [place] Appointment Type:URO Office Visit [facility]04-24-2023 NotePT Evaluation done this date. Pt. with on AM-PAC this date. He is w/c bound and uses stand pivot transfers. He appears to be at his baseline this date with CGAx1 with activity. No further acutePT needs.[facility]04-23-2023 NoteAttempted OT evaluation at 0800, pt. refused to participate stating that he was tired, and told ther apist to return tomorrow. Will reattempt evaluation 06/26/22.[facility]04-23-2023 NotePT attempted evaluation however; pt refuses PT evaluation stating he is too tired. Will return at alater date.[facility] 06-24-2022 NoteACUTE CARE SURGERY CONSULT NOTE CHIEF COMPLAINT: bowel obstruction vs ileus HISTORY OF PRESENT ILLNESS: 67 y/o male with hx of epilepsy with vagal nerve stimulator and developmental delay presents as a transfer due to family request from [facility]. He has history of prior surgery with lysis of adhesins and retrorectus hernia repair for bowel obstruction due to adhesions within the ventral hernia on 06/14/[address] Rivera. He had been admitted on 06/21/2022 to [facility] withpossible bowel obstruction. Notably, he has had two prior admissions - one 05/09-05/11/2022 and other on 06/12-06/14/2022 - also at [facility] for a similar problem. Prior CT scans have read possible bowel obstruction with transition point possible at old anastomosis vs distal ileum. However, on all studies, he has dilated bowel throughout with air and stool in the colon. He underwent a gastrograffinchallenge two days ago which made it to the rectum, but in a delayed fashion suggesting adynamic ileus. His family at bedside states that he had just gotten back to eating solid food [facility] with nausea and vomiting. Today, he denies any discomfort aside from the NG and hada bowel movement since admission. Notably, since he has been NPO several days, he had an episode ofhypoglycemia which responded appropriately to glucose, and since not all of his siezure meds have IV equivalents, he had two partial seizures per his family member which were stopped with his nerve st imulator. Upon evaluation, he is alert and at baseline per my prior interactions and his family. His family requested transfer to [facility] because they state surgery had been mentioned as a possibility and they wanted him here. Per report from family and physician caring for him at [facility]- he always has diarrhea stools during these admissions, even when NG in place. PAST MEDICAL HISTORY: epilepsy Developmental delay BPH Glaucoma osteoarthritis PAST SURGICAL HISTORY: Exploratory laparotomy/ventral hernia repair: 06/14/21 Hydrocelectomy: 10/21/15 Left shoulder: 1990 Small bowel resection Vagus nerve stimulator Colonoscopy PRE-ADMISSION MEDICATIONS: acetaminophen: 650 mg, Oral, q6hr, PRN (as needed for pain) calcium carbonate: Oral, TID calcium carbonate: 500 mg = 1 tab(s), Chewed, BID carbamide peroxide otic: 4 drop(s), Otic, Bedtime, INSTILL 4 DROPS INTO BILATERAL EARS AT BEDTIME ONCE A MONTH THEN APPLY COTTON SWABS TO EARS, THEN IRRIGATE WITH ROOM TEMP H20 THEN NEXT MORNING. cholecalciferol: 25 mcg = 1 tab(s), Oral, Daily diazepam: 12.5-20mg kit, Rectal, Once, PRN for seizure activity >15 minutes diphenhydrAMINE: 25 mg = 1 cap(s), Oral, q4hr, FOR ITCHING/RASH finasteride: 5 mg = 1 tab(s), Oral, Daily finasteride: 5 mg = 1 tab(s), Oral, Bedtime hydrOXYzine: 25 mg = 1 tab(s), Oral, QID hydrOXYzine: 50 mg = 2 tab(s), Oral, q12hr lacosamide: 150 mg = 1 tab(s), Oral, BID lacosamide: 300 mg = 2 tab(s), Oral, qAM lacosamide: 150 mg = 1 tab(s), Oral, BID lamotrigine: See Instructions, pt takes 2 tablets in am and 3 tablets at hs. lamotrigine: 600 mg, Oral, Bedtime lamotrigine: 2 TABLETS, Oral, qAM latanoprost ophthalmic: 0.005 %, Eye-Both, qPM latanoprost ophthalmic: 1 drop(s), Eye-Both, Bedtime levetiracetam: 1500, Oral, BID levetiracetam: 2,000 mg, Oral, Bedtime levetiracetam: 500 mg = 1 tab(s), Oral, qAM loperamide: 4 mg = 2 cap(s), Oral, BID lorazepam: See Instructions, PRN (Seizure), 1 tab(s) Oral TID lorazepam: 0.5 mg = 1 tab(s), Oral, q8hr meclizine: 25 mg = 1 tab(s), Chewed, TID meclizine: 25 mg = 1 tab(s), Oral, q8hr, FOR DIZZINESS melatonin: 3 mg = 1 tab(s), Oral, Bedtime, PRN (Insomnia) ondansetron: 4 mg = 1 tab(s), Oral, TID, PRN (Nausea/Vomiting) ondansetron: 4 mg = 1 tab(s), Oral, q6hr oxybutynin: 10 mg = 1 tab(s), Oral, Daily polyethylene glycol 3350: 17 gm, Oral, Daily primidone: See Instructions, pt takes 1 tablet in am and 1 1/2 tablet at night primidone: 250 mg = 1 tab(s), Oral, qAM primidone: 1 tab(s) AND 0.5 TAB, Oral, Bedtime senna: 8.6 mg = 1 tab(s), Oral, BID senna: 8.6 mg = 1 tab(s), Oral, BID, PRN (for constipation) tamsulosin: 0.4 mg = 1 cap(s), Oral, BID tamsulosin: 0.4 mg = 1 cap(s), Oral, BID trazodone: 50 mg = 1 tab(s), Oral, Bedtime trazodone: 50 mg = 1 tab(s), Oral, Once a day (at bedtime) ALLERGIES: clindamycin (hives) Nuts (Unknown) penicillins (hives) SOCIAL HISTORY: Alcohol Risk Assessment: Denies Alcohol Use Substance Abuse Risk Assessment: Denies Substance Abuse Tobacco Risk Assessment: Denies Tobacco Use; Details: Never (less than 100 in lifetime) Tobacco Use:. FAMILY HISTORY: Father: Primary malignant neoplasm of lung Mother: Acute myocardial infarction; Heart failure; Hypertension; Metastatic cancer; Stroke Brother: Acute myocardial infarction; Cardiac arrhythmia; Diabetes mellitus type 2; Heart failure Sister: Diabetes mellitus type 2 (more content not included)...[facility]:Result Comment: Electronically Signed By: Henrry MOELLER, Kari Mccollum\.br\Date and Time Signed: 06/24/22 16:10 [id number] NoteOT orders received and chart reviewed. OT consulted with nursing. Hold OT evaluation, as there is no order to clamp his NG tube for pt to participate in therapies. Plan to return tomorrow, 06/25/22, to perform evaluation once NG tube can be clamped.[facility] 06-24-2022 NotePT orders received and chart reviewed. PT spoke with nursing and nursing would like PT to hold evaluation as there is no order to clamp his NG tube for pt to participate in PT. Will return tomorrow to perform evaluation once NG tube can be clamped.[facility]04-22-2023 History of Present illness Narrative* Daiana Mercado RN - 06/24/2022 12:41 AM EDT Called [facility] and gave report to nurse who will be taking patient at this time. Encouraged tocall back if have any questions. * Daiana Mercado RN - 06/24/2022 12:35 AM EDT Patient left with transport at this time. Report and envelope with paperwork given to transport staff. Patient left with IV in right arm and NG in that was clamped for transport. Personal wheelchair,helmet, seizure magnet, coat and other personal belongings sent with patient. Parking Enforcement Specialist to call reportto jasson graham. * Daiana Mercado RN - 06/24/2022 12:25 AM EDT Patient's cleaned and washed up at this time. Brief and gown changed. Deoderant and baby powder applied. Flat sheet placed underneath patient for transport. Patient got comfortable in bed. Fluids andtelemetry removed. Personal belongings gathered. Patient expresses comfort. Patient denies any other needs at this time. Call light, bedside table and personal belongings within reach. * Daiana Mercado RN - 06/23/2022 6:40 PM EDT Patient resting comfortable in bed awake and watching television at this time. Brief is dry. Patient declines any needs at this time. Call light, bedside table and personal belongings within reach. Bed alarm on. * Yennifer El - 06/23/2022 5:03 PM EDT Updated patients sister with Eta of midnight * Jose Chacon MD - 06/23/2022 4:15 PM EDT Physician Progress Note PATIENT: AMOL TAYLOR CSN #: [id number] : 1955 ADMIT DATE: 06/21/2022 11:47 AM DISCH DATE: RESPONDING PROVIDER #: Jose Chacon MD QUERY TEXT: Patient admitted with small bowel obstruction. Noted documentation in H&P: has MRDD and unable to provide details If possible, please document in the progress notes and discharge summary if you are evaluating and/or treating any of the following: The medical record reflects the following: Risk Factors: In H&P there is problem list entry dated 2013: MR (mental retardation), severe Clinical Indicators: from alf, Per H&P: has MRDD and unable to provide details... Awake, alert and pleasant Treatment: standard safety measures, fall risk interventions, assistance with mobility Annika Casillas, ADAM, RN, CCDS, CRCR Clinical Lining Inserter [phone] Options provided: -- Borderline intellectual disabilities -- Mild intellectual disabilities -- Moderate intellectual disabilities -- Profound intellectual disabilities -- Severe intellectual disabilities -- Intellectual disabilities with autistic features -- Other - I will add my own diagnosis -- Disagree - Not applicable / Not valid -- Disagree - Clinically unable to determine / Unknown -- Refer to Clinical Documentation Reviewer PROVIDER RESPONSE TEXT: This patient has profound intellectual disabilities. Query created by: Annika Casillas on 06/22/2022 2:36 PM Electronically signed by: Jose Chacon MD 06/23/2022 4:14 PM * Yennifer El - 06/23/2022 3:35 PM EDT Parking Enforcement Specialist spoke with patients sister. Updated her about transfer. * Yennifer El - 06/23/2022 3:17 PM EDT Parking Enforcement Specialist attempted to call patients guardian, no answer and no voicemail available. * RAISA Mejia CNP - 06/23/2022 3:04 PM EDT I attempted to call back and speak to Susan Smith, Legal Guardian to update her on the acceptance to [facility] and awaiting Transport as he has a bed assignment there, however she did not answer and her Voicemail box was full. I did speak with her in the morning and her request was to go to [facility] to the surgeons that have treated him before. RAISA Mejia CNP * SHANTI Camacho - 06/23/2022 11:06 AM EDT Occupational Therapy Facility/Department: [facility] Daily Treatment Note NAME: Amol Taylor : 1955 Date of Service: 06/23/2022 Discharge Recommendations: Continue to assess pending progress Patient Diagnosis(es): The encounter diagnosis was SBO (small bowel obstruction) (HCC). Assessment Activity Tolerance: Patient tolerated treatment well Discharge Recommendations: Continue to assess pending progress Plan Occupational Therapy Plan Times Per Day: Once a day Days Per Week: 7 Days Current Treatment Recommendations: Strengthening;Balance training;Functional mobility training;Endurance training;ROM;Safety education & training;Patient/Caregiver education & training;Equipment evaluation, education, & procurement;Self-Care / ADL Restrictions Restrictions/Precautions Restrictions/Precautions: NPO;Fall Risk Subjective Subjective Subjective: Pt in chair watching TV with no sound on. Pt agreeable to therex. Pain: denied, no indication Orientation Orientation Level: Oriented to person Cognition Overall Cognitive Status: Exceptions Arousal/Alertness: Appropriate responses to stimuli Following Commands: Follows one step commands with increased time Attention Span: Appears intact Problem Solving: Assistance required to generate solutions Objective Vitals Pt declined need for ADLs OT Exercises Exercise Treatment: Pt tolerated BUE ther ex to increase strength and endurance for fxl tasks. Pt completed green digiflex x 20 yellow flex bar bends x 2 and 1# free weight x all planes wrist elbow and shoulder while seated. Pt requried occ VCs for pacing, counting reps and tech with F return. Safety Devices Type of Devices: All fall risk precautions in place;Call light within reach;Chair alarm in place;Left in chair Patient Education Education Given To: Patient Education Provided: Role of Therapy;Plan of Care;Home Exercise Program Education Method: Demonstration;Verbal Barriers to Learning: Cognition Education Outcome: Continued education needed Goals Short Term Goals Time Frame for Short Term Goals: 21 visits Short Term Goal 1: Patient to complete ADL transfers with SUP with improved safety. Short Term Goal 2: Patient to engage in daily ADL routine c Min A to improve ADL independence. Short Term Goal 3: Patient to engage in 15 minutes of ther ex/ther act/ROM to improve strength and activity tolerance during ADL. Therapy Time Individual Concurrent Group Co-treatment Time In 1036 Time Out 1101 Minutes 25 SHANTI Camacho * Yennifer El - 06/23/2022 10:19 AM EDT Patient removed NG. Parking Enforcement Specialist notified Dorota FREDERICK and gabriel to leave out. Will try clear liquids * Dorota Woodson APRN - OTONIEL - 06/23/2022 8:45 AM EDT Progress Note SUBJECTIVE: Patient seen for f/u of SBO (small bowel obstruction) ([facility]). He resting in bed no distress. No complaints or concerns per nursing. Had large BM last evening and soft seedy stool today ROS: Constitutional: negative for fevers, and negative for chills. Respiratory: negative for shortness of breath, negative for cough, and negative for wheezing Cardiovascular: negative for chest pain, and negative for palpitations Gastrointestinal: negative for abdominal pain, negative for nausea,negative for vomiting, negative for diarrhea, and negative for constipation All other systems were reviewed with the patient and are negative unless otherwise stated in HPI OBJECTIVE: Vitals: Vitals: 06/23/22 0630 BP: (!) 102/48 Pulse: (!) 47 Resp: 20 Temp: 97.8 F (36.6 C) SpO2: 97% Weight: 182 lb (82.6 kg) Height: 5' 6 (167.6 cm) Weight Wt Readings from Last 3 Encounters: 06/23/22 182 lb (82.6 kg) 06/15/22 182 lb 15.7 oz (83 kg) 05/12/22 183 lb (83 kg) Body mass index is 29.38 kg/m . 24HR INTAKE/OUTPUT: Intake/Output Summary (Last 24 hours) at 06/23/2022 0846 Last data filed at 06/23/2022 0539 Gross per 24 hour Intake 4649 ml Output 1200 ml Net 3449 ml Exam: GEN: Awake, alert and pleasant EYES: EOMI, pupils equal NECK: Supple. No lymphadenopathy. No carotid bruit CVS: regular rate and rhythm, no audible murmur PULM: CTA, no wheezes, rales or rhonchi, no acute respiratory distress ABD: Bowels sounds normal. Abdomen is soft. No distention. no tenderness to palpation. EXT: no edema bilaterally . No calf tenderness. NEURO: Moves all extremities. Motor and sensory are grossly intact SKIN: No rashes. No skin lesions. Diagnostic Data: Complete Blood Count: Recent Labs 06/21/22 1210 06/22/22 0610 06/23/22 0615 WBC 12.0* 7.5 7.1 RBC 3.89* 3.36* 2.95* HGB 12.9* 11.1* 9.8* HCT 38.8* 33.8* 29.9* MCV 99.7 100.6 101.4 MCH 33.2 33.0 33.2 MCHC 33.2 32.8 32.8 RDW 13.1 13.1 12.7 PLT See Reflexed IPF Result 248 191 MPV -- 8.9 8.9 Last 3 Blood Glucose: Recent Labs 06/21/22 1230 GLUCOSE 105* Comprehensive Metabolic Profile: Recent Labs 06/21/22 1230 NA 138 K 3.8 CL 99 CO2 28 BUN 19 CREATININE 1.04 GLUCOSE 105* CALCIUM 10.0 PROT 7.8 LABALBU 4.3 BILITOT 0.3 ALKPHOS 131* AST 19 ALT 19 Urinalysis: Lab Results Component Value Date/Time NITRU NEGATIVE 06/12/2022 11:10 AM COLORU Yellow 06/12/2022 11:10 AM PHUR 8.0 06/12/2022 11:10 AM WBCUA 2 TO 5 06/12/2022 11:10 AM RBCUA 0 TO 2 06/12/2022 11:10 AM MUCUS NOT REPORTED 12/05/2018 06:15 AM TRICHOMONAS NOT REPORTED 12/05/2018 06:15 AM YEAST NOT REPORTED 12/05/2018 06:15 AM BACTERIA 2+ 06/12/2022 11:10 AM SPECGRAV 1.010 06/12/2022 11:10 AM LEUKOCYTESUR TRACE 06/12/2022 11:10 AM UROBILINOGEN Normal 06/12/2022 11:10 AM BILIRUBINUR NEGATIVE 06/12/2022 11:10 AM BILIRUBINUR NEGATIVE 10/31/2010 12:33 PM GLUCOSEU NEGATIVE 06/12/2022 11:10 AM GLUCOSEU NEGATIVE 10/31/2010 12:33 PM KETUA NEGATIVE 06/12/2022 11:10 AM AMORPHOUS 2+ 06/12/2022 11:10 AM HgBA1c: No results found for: LABA1C Lactic Acid: Lab Results Component Value Date/Time LACTA 1.3 06/21/2022 12:30 PM LACTA 1.5 05/08/2022 11:30 PM LACTA 1.3 10/17/2013 06:20 PM Troponin: No results for input(s): TROPONINI in the last 72 hours. CRP: No results for input(s): CRP in the last 72 hours. Radiology/Imaging: FL SMALL BOWEL FOLLOW THROUGH ONLY Final Result Minimal contrast emptying from the stomach after 3 hours of imaging and diffuse small and large bowel distension, favoring ileus versus partial obstructing process. As such, follow-up abdominal radiograph in 4 hours (approximate 8 p.m.) is suggested. XR ABDOMEN (KUB) (SINGLE AP VIEW) Final Result 1. NG tube remains in place. Persistent small bowel distension and nondilated colonic gas. 2. Distended bladder with contrast. XR ABDOMEN FOR NG/OG/NE TUBE PLACEMENT Final Result The OG/NG tube has been placed in good position. CT ABDOMEN PELVIS W IV CONTRAST Additional Contrast? None Final Result Small-bowel obstruction with transition point possibly in the ileum RECOMMENDATIONS: Surgical consultation XR ABDOMEN (KUB) (SINGLE AP VIEW) (Results Pending) ASSESSMENT / PLAN: MEDICAL DECISION MAKING: Primary Problem(s): SBO (small bowel obstruction) (HCC) Differential diagnoses: Ileus, constipation Condition is a chronic illness with exacerbation, progression or side effects of treatment Condition is improving Treatment plan: Consultation: General surgery Imaging: Xray abdomen ordered today SBF-ileus Medications: Continue IV fluids IV Pepcid Medication Monitoring / High Risk Medications: none Seizure disorder Condition is a chronic stable condition Treatment plan: Continue current treatment Imaging: no further imaging studies ordered today Medications: Continue IV Keppra, Vimpat Nutrition status: obesity, non-morbid Subacute Nurse consult initiated Hospital Prophylaxis: DVT: Lovenox Stress Ulcer: H2 Ginette Disposition: Shared decision making: All test results, treatment options and disposition options were discussed with the patient today Social determinants of health that may impact management: MRDD Code status: Full Code Disposition: Discharge plan is home [facility] Advanced Care Planning documentation: [x] I have confirmed that the patient's Advance Care Plan is present, Code Status is documented, orsurrogate decision maker is listed in the patient's medical record [If yes , STOP HERE] [] The patient's Advance Care Plan is NOT present because: [] I confirmed today that the patient does not wish or was not able to name a surrogate decision maker or provide and advance care plan. [] Hospice care is currently being provided or has been provided within the calendar year. [] I did NOT confirm today the presence of an Advance Care Plan or surrogate decision maker documented within the patient's medical record. [DOES NOT SATISFY MIPS PERFORMANCE] Dorota Woodson APRN - TRUCK CAR AND BUS CLEANER , RAISA, BREAKER UP-C Hospitalist Medicine 06/23/2022, 8:46 AM Associated attestation - Jose Chacon MD - 06/23/2022 4:25 PM EDT Attending Supervising Physician s Attestation Statement I have personally evaluated and examined the patient [id number] in conjunction with the nurse practitioner. I agree with management and disposition of the patient. My gee findings are: 67 y.o. male admitteed for SBO (small bowel obstruction) (HCC) on 06/21/2022 Regular heart rate. Clear lung sounds. NG-tube. Bowel sounds diminished. SBO (small bowel obstruction) (HCC) Principal Problem: SBO (small bowel obstruction) (HCC) Active Problems: Moderate malnutrition (HCC) Resolved Problems: * No resolved hospital problems. * Examined and Reviewed plan of care with BREAKER UP. Directions and discussion about care and plans. Disposition including length of stay was reviewed. Nutritional status, advanced directive and old records reviewed. In addition, Consultations and pharmacy management including drug therapy was reviewed. Physical therapy goals along with occupational therapy was reviewed & integrated into management including disposition. Disposition: Surgery involved. IV meds. The patient was seen examined with the nurse practitioner on June 23, 2022 all direct care was reviewed with the nurse practitioner at the bedside with the patient. Electronically signed by Jose Chacon MD * Yennifer El - 06/23/2022 6:[address] chacon notified of patient large BM last night. Wants to confirm that NG is in correct placement,repeat xray. If placement is correct, Dr Chacon would like patients NG clammed and to try clear liquids. * Yennifer El - 06/23/2022 6:30 AM EDT Patient resting in bed with eyes closed, easily awoken. Denies pain. NG connected to low intermittent suction. VS obtained by student RN and reviewed by jingle writer. Patients brief dry at this time. Will continue to monitor. * Corin Castanon RN - 06/22/2022 7:45 PM EDT Vitals and Assessment completed at this time. See Flowsheet for details. Pt is currently resting inbed quietly with no signs of distress. Pt alert and oriented x4. Pt denies any pain or shortness ofbreath. Pt states he just wants to sleep a while. Pt denies any further needs at this time. Call light and personal belongings in reach, care ongoing. * Radha Christina - 06/22/2022 10:06 AM EDT Comprehensive Nutrition Assessment Type and Reason for Visit: Initial Nutrition Recommendations/Plan: Continue current diet. Monitor NPO duration. Progress to oral diet as medically appropriate and GI tolerates. Low-fiber diet. Malnutrition Assessment: Malnutrition Status: Moderate malnutrition (06/22/22 1050) Context: Acute Illness Findings of the 6 clinical characteristics of malnutrition: Energy Intake: Mild decrease in energy intake (Comment) (NPO x 2 days) Weight Loss: Greater than 2% over 1 week Body Fat Loss: No significant body fat loss Muscle Mass Loss: No significant muscle mass loss Fluid Accumulation: Mild Extremities Line Service Technician Strength: Not Performed Nutrition Assessment: Moderate malnutrition r/t altered GI status AEB NPO status d/t medical condition, weight loss greater than 2% within 1 week, nausea, vomiting, diarrhea. Hx: MR, bowel obstruction repair, hernia repair, mod-severe dysphagia. Pt was observed through room window, w/out visual malnutrition indices and s leeping. NG tube in place, currently NPO. 900mL out initially and 400mL overnight, brown. Pt presented two weeks ago for SBO, from [facility]. Current diet at facility is [facility] soft foods, no caffeine, limit greasy foods, toasted bread only, yogurt daily, and raw fruits. [facility] Will monitor NPO duration and GI sx. 3.7% weight loss within 1 week (since last admission). Low-fiber diet education information was placed in patients folder for facility upon discharge. Nutrition Related Findings: Non-pitting edema BLE, bowel sounds active x 4. Wound Type: None Current Nutrition Intake & Therapies: Average Meal Intake: NPO Average Supplements Intake: None Ordered Diet NPO Anthropometric Measures: Height: 5' 6 (167.6 cm) [place] Body Weight (IBW): 142 lbs (65 kg) Admission Body Weight: 181 lb (82.1 kg) Current Body Weight: 181 lb (82.1 kg), 127.5 % IBW. Weight Source: Bed Scale Current BMI (kg/m2): 29.2 Usual Body Weight: 188 lb (85.3 kg) % Weight Change (Calculated): -3.7 Weight Adjustment For: No Adjustment BMI Categories: Overweight (BMI 25.0-29.9) Estimated Daily Nutrient Needs: Energy Requirements Based On: Kcal/kg Weight Used for Energy Requirements: Current Energy (kcal/day): 8669-5401 (20-25 k/kcal) Weight Used for Protein Requirements: [place] Protein (g/day): 84-96 (1.3-1.5g/kg) Method Used for Fluid Requirements: 1 ml/kcal Fluid (ml/day): 2050mL Nutrition Diagnosis: Moderate malnutrition related to altered GI function as evidenced by NPO or clear liquid status dueto medical condition, weight loss greater than or equal to 2% in 1 week, nausea, vomiting, diarrhea Nutrition Interventions: Food and/or Nutrient Delivery: Start Oral Diet Nutrition Education/Counseling: Education not appropriate Coordination of Nutrition Care: Continue to monitor while inpatient Goals: Goals: Initiate PO diet Nutrition Monitoring and Evaluation: Behavioral-Environmental Outcomes: None Identified Food/Nutrient Intake Outcomes: Food and Nutrient Intake, Diet Advancement/Tolerance Physical Signs/Symptoms Outcomes: Biochemical Data, Weight, GI Status Discharge Planning: Continue current diet Radha Christina Contact: [phone] * Jeremy Izquierdo RN - 06/22/2022 7:00 AM EDT Vitals and assessment done at this time. See flow sheet for more details. Pt resting in bed at thistime. Pt denied any pain. Pt oriented x4. Pt is having diarrhea faith/brown watery. Pt denied any pain at this time. Call light within reach. Will continue to monitor. * Alesha Galicia RN - 06/21/2022 6:45 PM EDT Assessment and vitals obtained at this time as charted. Pt A&O x4 and denies pain. Lungs are clear/diminished and pt is 98% on room air. Pt denies any further needs at this time. Call light within reach, care ongoing. * Jeremy Izquierdo RN - 06/21/2022 5:05 PM EDT Pt brought up from ER at this time. Report received at bedside at this time. documented in this encounterB[facility]OSPITALInfracommerce Phone: [phone]) 944-356004-21-2023 Hospital course Narrative* RAISA Mejia CNP - 06/23/2022 3:10 PM EDT Discharge Summary Amol Taylor : 1955 Admit date: 06/21/2022 Discharge date: 06/23/2022 Admitting Physician: Jose Chacon MD Discharge Diagnoses: Principal Problem: SBO (small bowel obstruction) (HCC) Active Problems: Moderate malnutrition (HCC) Resolved Problems: * No resolved hospital problems. * Hospital Course: Amol Taylor is a 67 y.o. male admitted with SBO. He presented to the ER from alf due to vomiting and diarrhea. No melena or hematochezia Patient has MRDD and unable to provide details. During his evaluation in ER he was found to have SBO and admitted with permission of [facility] Surgery. NG was placed to LIWS and large amount of output was seen. This admission will make 3 hospitalizations since May for the same thing. Small bowel follow through was completed and abdominal films monitored. General Surgery consulted. Patient continued to have obstruction. I did speak to [facility] Surgical Team per the Request of his Legal Guardian Susan Smith and Dr. Clayton. All films were sent for their review. He was accepted and will be transferred today. I did attemptto call Pat but was unable to leave a message for her as her mailbox was full. 06/12/2022-06/15/2022-NG and series of xrays and resolved but had an ileus. 05/08/2022-05/12/2022-Gastrografin with SBS showed obstruction resolved Consultants: Dr. Clayton, gen surg Procedures: none Complications: none Discharge Condition: fair Exam: GEN: Awake, alert and pleasant EYES: EOMI, pupils equal NECK: Supple. No lymphadenopathy. No carotid bruit CVS: regular rate and rhythm, no audible murmur PULM: CTA, no wheezes, rales or rhonchi, no acute respiratory distress ABD: Bowels sounds normal. Abdomen is soft. No distention. no tenderness to palpation. EXT: no edema bilaterally . No calf tenderness. NEURO: Moves all extremities. Motor and sensory are grossly intact SKIN: No rashes. No skin lesions. Significant Diagnostic Studies: Lab Results Component Value Date WBC 7.1 06/23/2022 HGB 9.8 (L) 06/23/2022 PLT 191 06/23/2022 Lab Results Component Value Date BUN 19 06/21/2022 CREATININE 1.04 06/21/2022 NA 138 06/21/2022 K 3.8 06/21/2022 CALCIUM 10.0 06/21/2022 CL 99 06/21/2022 CO2 28 06/21/2022 LABGLOM >60 06/21/2022 Lab Results Component Value Date WBCUA 2 TO 5 06/12/2022 RBCUA 0 TO 2 06/12/2022 EPITHUA 0 TO 2 06/12/2022 LEUKOCYTESUR TRACE (A) 06/12/2022 SPECGRAV 1.010 06/12/2022 GLUCOSEU NEGATIVE 06/12/2022 KETUA NEGATIVE 06/12/2022 PROTEINU NEGATIVE 06/12/2022 HGBUR NEGATIVE 06/12/2022 CASTUA NOT REPORTED 12/05/2018 CRYSTUA NOT REPORTED 12/05/2018 BACTERIA 2+ (A) 06/12/2022 YEAST NOT REPORTED 12/05/2018 XR ABDOMEN (KUB) (SINGLE AP VIEW) Result Date: 06/22/2022 EXAMINATION: ONE SUPINE XRAY VIEW(S) OF THE ABDOMEN 06/22/2022 9:12 am COMPARISON: 06/21/2022 HISTORY: ORDERING SYSTEM PROVIDED HISTORY: sbo progress study/mrdd/recurrent sbo has ngt TECHNOLOGIST PROVIDED HISTORY: sbo progress study/mrdd/recurrent sbo has ngt FINDINGS: The tip and side-hole of NG tube projects at the level the body of the stomach. Dilated small bowel is again demonstrated. Mild amount of colonic gas is present as well. The bladder is distended with contrast. 1. NG tube remains in place. Persistent small bowel distension and nondilated colonic gas. 2. Distended bladder with contrast. CT ABDOMEN PELVIS W IV CONTRAST Additional Contrast? None Result Date: 06/21/2022 EXAMINATION: CT OF THE ABDOMEN AND PELVIS WITH CONTRAST 06/21/2022 10:44 am TECHNIQUE: CT of the abdomen and pelvis was performed with the administration of intravenous contrast. Multiplanar reformatted images are provided for review. Automated exposure control, iterative reconstruction, and/or weight based adjustment of the mA/kV was utilized to reduce the radiation dose to as low as reasonably achievable. COMPARISON: None. HISTORY: ORDERING SYSTEM PROVIDED HISTORY: Abdominal distention rule out SBO TECHNOLOGIST PROVIDED HISTORY: Abdominal distention rule out SBO Decision Support Exception - unselect if not a suspected or confirmed emergency medical condition->Emergency Medical Condition (MA) FINDINGS: Lower Chest: Bibasilar atelectasis. Coronary artery disease. Organs: Liver is normalin size and density. No focal masses identified. No evidence of intrahepatic ductal dilatation. Spleen is normal size. The gallbladder is unremarkable. Both adrenal glands are normal. Pancreas is normal in appearance. 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 The kidneys are otherwise normal in size and attenuation without evidence of hydronephrosis or renal calculi. GI/Bowel: Fluid-filled dilated loops of small bowel and stomach. Colon is somewhat decompressed. The small hiatal hernia Pelvis: No intrapelvic mass is identified. Bladder and rectum are intact. Peritoneum/Retroperitoneum: No free fluid. No lymphadenopathy. No evidence of pneumoperitoneum. Bones/Soft Tissues: . The abdominal and pelvic viera are unremarkable. Degenerative changes seen in the visualized spine . No acute bony abnormalities. Vascular calcifications are seen compatible with atherosclerotic disease. Small-bowel obstruction with transition point possibly in the ileum RECOMMENDATIONS: Surgical consultation XR ABDOMEN FOR NG/OG/NE TUBE PLACEMENT Result Date: 06/21/2022 EXAMINATION: ONE SUPINE XRAY VIEW(S) OF THE ABDOMEN 06/21/2022 3:46 pm COMPARISON: 06/14/2022 HISTORY: ORDERING SYSTEM PROVIDED HISTORY: Confirmation of course of NG/OG/NE tube and location of tip of tube TECHNOLOGIST PROVIDED HISTORY: Confirmation of course of NG/OG/NE tube and location of tip of tube Portable?->Yes FINDINGS: The tip of the OG/NG tube and side hole/port are in satisfactory position in the mid stomach. There is moderate to marked gaseous distention of bowel in the upper abdomen. Lung bases are grossly clear. The OG/NG tube has been placed in good position. FL SMALL BOWEL FOLLOW THROUGH ONLY Result Date: 06/22/2022 EXAMINATION: SMALL BOWEL FOLLOW THROUGH SERIES 06/22/2022 TECHNIQUE: Serial portable radiographs of the abdomen were performed after administration of Gastrografin via indwelling NG tube. FLUOROSCOPY DOSE AND TYPE: Radiation Exposure Index: None, COMPARISON: Abdominal radiograph today, 06/21/2022, . CT abdomen and pelvis 06/21/2022. HISTORY: ORDERING SYSTEM PROVIDED HISTORY: therapeutic gastrograffin sbft for partial sbo via ngt. still needs it even though had one last month. TECHNOLOGIST PROVIDED HISTORY: Please start today therapeutic gastrograffin sbft for partial sbo via ngt. still needs it even though had one last month. FINDINGS: Contrast was administered via indwelling NG tube. Stasis of contrast in the stomach with minimal emptying after 3 hours of administration is noted. The overall amount of visible contrast in the stomach appears diminished since the initial imaging. Small and large bowel again demonstrated. Minimal contrast emptying from the stomach after 3 hours of imaging and diffuse small and large bowel distension, favoring ileus versus partial obstructing process. As such, follow-up abdominal radiograph in 4 hours (approximate 8 p.m.) is suggested. Assessment and Plan: Patient Active Problem List Diagnosis Date Noted Moderate malnutrition ([facility]) 06/22/2022 SBO (small bowel obstruction) ([facility]) 06/21/2022 Epilepsy ([facility]) 12/14/2015 MR (mental retardation), severe 10/20/2013 Small bowel obstruction ([facility]) 10/18/2013 Seizures ([facility]) Chronic 10/18/2013 Discharge Medications: Medication List ASK your doctor about these medications acetaminophen 325 MG tablet Commonly known as: TYLENOL Take 2 tablets by mouth every 4 hours as needed for Pain calcium carbonate 500 MG chewable tablet Commonly known as: TUMS Debrox 6.5 % otic solution Generic drug: carbamide peroxide diazePAM 20 MG Gel Commonly known as: DIASTAT diphenhydrAMINE 25 MG tablet Commonly known as: BENADRYL finasteride 5 MG tablet Commonly known as: PROSCAR hydrocortisone 2.5 % cream hydrOXYzine HCl 25 MG tablet Commonly known as: ATARAX lacosamide 150 MG Tabs tablet Commonly known as: VIMPAT * lamoTRIgine 200 MG tablet Commonly known as: LAMICTAL * lamoTRIgine 200 MG tablet Commonly known as: LAMICTAL latanoprost 0.005 % ophthalmic solution Commonly known as: XALATAN * levETIRAcetam 1000 MG tablet Commonly known as: KEPPRA * levETIRAcetam 750 MG tablet Commonly known as: KEPPRA loperamide 2 MG capsule Commonly known as: IMODIUM LORazepam 0.5 MG tablet Commonly known as: ATIVAN meclizine 25 MG tablet Commonly known as: ANTIVERT melatonin 3 MG Tabs tablet ondansetron 4 MG tablet Commonly known as: ZOFRAN oxybutynin 10 MG extended release tablet Commonly known as: DITROPAN-XL polyethylene glycol 17 g packet Commonly known as: GLYCOLAX Take 17 g by mouth daily * primidone 250 MG tablet Commonly known as: MYSOLINE * primidone 250 MG tablet Commonly known as: MYSOLINE senna 8.6 MG tablet Commonly known as: SENOKOT tamsulosin 0.4 MG capsule Commonly known as: FLOMAX traZODone 50 MG tablet Commonly known as: DESYREL Vitamin D 25 MCG (1000 UT) Tabs tablet Commonly known as: CHOLECALCIFEROL * This list has 6 medication(s) that are the same as other medications prescribed for you. Read thedirections carefully, and ask your doctor or other care provider to review them with you. Patient Instructions: Activity: activity as tolerated Diet: npo Wound Care: none needed Other: none Disposition: Discharge to Home Follow up: Patient will be followed by Carson Matamoros MD in 1-2 weeks CORE MEASURES on Discharge (if applicable) JASON/ARB in CHF: NA Statin in [place]: NA ASA in [place]: NA Statin in CVA: NA Antiplatelet in CVA: NA Total time spent on discharge services: 40 minutes Including the following activities: Evaluation and Management of patient Discussion with patient and/or surrogate about current care plan Coordination with Case Management and/or Electrical Contacts Adjuster Coordination of care with Consultants (if applicable) Coordination of care with Receiving Facility Physician (if applicable) Completion of DME forms (if applicable) Preparation of Discharge Summary Preparation of Medication Reconciliation Preparation of Discharge Prescriptions Signed: Dorota Woodson APRN - TRUCK CAR AND BUS CLEANER, CRANKSHAFT STRAIGHTENER, BREAKER UP-C 06/23/2022, 3:11 PM Associated attestation - Jose Chacon MD - 06/23/2022 4:30 PM EDT Attending Supervising Physician s Attestation Statement I have personally evaluated and examined the patient [id number] in conjunction with the nurse practitioner. I agree with management and disposition of the patient. My gee findings are: 67 y.o. male admitteed for SBO (small bowel obstruction) (HCC) on 06/21/2022 Regular. Clear. NG tube noted. SBO (small bowel obstruction) (HCC) Principal Problem: SBO (small bowel obstruction) (HCC) Active Problems: Moderate malnutrition (HCC) Resolved Problems: * No resolved hospital problems. * Examined and Reviewed plan of care with BREAKER UP. Directions and discussion about care and plans. Disposition including length of stay was reviewed. Nutritional status, advanced directive and old records reviewed. In addition, Consultations and pharmacy management including drug therapy was reviewed. Physical therapy goals along with occupational therapy was reviewed & integrated into management including disposition. Disposition: Discharge 2 transfer to another facility The patient was seen examined with the nurse practitioner on June 23, 2022 all direct care was reviewed with the nurse practitioner at the bedside with the patient. Electronically signed by Jose Chacon MD documented in this encounterB[facility] HOSPITALInfracommerce Phone: [phone] History of Present illness Narrative* Anais Addison RN - 05/12/2022 6:51 PM EST Transport arrived to get patient. Belongings and paperwork were sent with the transport team. Parking Enforcement Specialist checked the locked cupboard and cabinet for personal belongings. Report was given to transport andpatient is headed out at this time. * Yolanda Pope RN - 05/12/2022 5:15 PM EST Received call from [facility] will be here to pick pt up at 1815. Called Leilani with alf and updated her. * Yolanda Pope RN - 05/12/2022 4:57 PM EST Received call from [facility]. ETA is now 2200. Will update alf and nursing supervisor plating and point assembly. * Yolanda Pope RN - 05/12/2022 2:05 PM EST Pericare provided. * KRYSTIN Farley - 05/12/2022 12:03 PM EST Patient is discharge back to the alf today. The sister is aware of the discharge and good with the discharge today. The alf is also aware of the discharge. He will go by ambulance back to alf. KRYSTIN Farley * Yolanda Pope RN - 05/12/2022 10:37 AM EST Spoke to Dorota FREDERICK, pt is going to be discharged today. Okay to restart pts oral Vimpat and Keppra. * Yolanda Pope RN - 05/12/2022 9:59 AM EST Called pharmacy at this time regarding IV Vimpat. Attempted to scan medication, MAR alerts no orders for medication. Called pharmacy to see if a barcode could be printed for medication, Lida statesthat medication has to be overrode as barcode unreadable. Medication was reconstituted and wasted witnessed by Reggie Gomez RN. Rest of morning medications were scanned in to computer. Went to flush IVto give protonix and start Keppra. IV would not flush. Dressing noted to have blood under it and IVappears kinked. Dressing taken off and IV found to be out. Attempted IV restart times 1 attempt without success. Will speak to Dorota FREDERICK to see if pt is going to be discharged today and can be started back on oral medications. If pt needs IV will have nursing supervisor plating and point assembly attempt IV start. * Yolanda Pope RN - 05/12/2022 8:00 AM EST Assisted pt with eating breakfast. Pt started to feed self. Will assess pts level of assistance needed with each meal. * Yolanda Pope RN - 05/12/2022 7:44 AM EST Parking Enforcement Specialist to bedside to complete morning assessment. Upon entry to room, pt sitting up in bed, respirations even while on room air. Vitals obtained and assessment completed by Gayatri CHENG precepting with this nurse, see flow sheet for details. Pt denies needs from jingle writer at this time. Call light in reach. Bed alarm active. Care ongoing. * Dorota Woodson APRN - TRUCK CAR AND BUS CLEANER - 05/12/2022 7:10 AM EST Progress Note SUBJECTIVE: Patient seen for f/u of Small bowel obstruction (HCC). He resting in bed with eyes closed . No complaints ROS: Constitutional: negative for fevers, and negative for chills. Respiratory: negative for shortness of breath, negative for cough, and negative for wheezing Cardiovascular: negative for chest pain, and negative for palpitations Gastrointestinal: negative for abdominal pain, negative for nausea,negative for vomiting, negative for diarrhea, and negative for constipation All other systems were reviewed with the patient and are negative unless otherwise stated in HPI OBJECTIVE: Vitals: Vitals: 05/11/22 2340 BP: 100/82 Pulse: 88 Resp: 20 Temp: 97.9 F (36.6 C) SpO2: 94% Weight: 183 lb (83 kg) Height: 5' 6 (167.6 cm) Weight Wt Readings from Last 3 Encounters: 05/12/22 183 lb (83 kg) 12/14/15 209 lb (94.8 kg) 12/08/15 209 lb 3.5 oz (94.9 kg) Body mass index is 29.54 kg/m . 24HR INTAKE/OUTPUT: Intake/Output Summary (Last 24 hours) at 05/12/2022 0710 Last data filed at 05/12/2022 0504 Gross per 24 hour Intake 3747.23 ml Output 750 ml Net 2997.23 ml Exam: GEN: Awake, alert and oriented to person and place only. EYES: EOMI, pupils equal NECK: Supple. No lymphadenopathy. No carotid bruit CVS: regular rate and rhythm, no audible murmur PULM: upper airway rhonchi but otherwise clear , no acute respiratory distress ABD: Bowels sounds active Abdomen is soft. No distention. no tenderness to palpation. EXT: 1+ edema bilaterally . No calf tenderness. NEURO: Moves all extremities. Motor and sensory are grossly intact SKIN: No rashes. No skin lesions. Diagnostic Data: Complete Blood Count: Recent Labs 05/10/22 0535 05/11/22 0550 WBC 13.4* 11.4* RBC 3.55* 3.35* HGB 12.0* 11.4* HCT 35.9* 34.8* MCV 101.1 103.9* MCH 33.8* 34.0* MCHC 33.4 32.8 RDW 13.1 13.0 PLT 170 147 MPV 9.2 10.2 Last 3 Blood Glucose: Recent Labs 05/10/22 0535 05/11/22 0550 GLUCOSE 108* 82 Comprehensive Metabolic Profile: Recent Labs 05/10/22 0535 05/11/22 0550 NA 145* 146* K 3.8 3.9 CL 107 109* CO2 28 23 BUN 29* 25* CREATININE 1.02 1.00 GLUCOSE 108* 82 CALCIUM 9.0 9.0 PROT 6.8 6.9 LABALBU 3.5 3.3* BILITOT 0.6 0.9 ALKPHOS 118 108 AST 13 17 ALT 10 12 Urinalysis: Lab Results Component Value Date/Time NITRU NEGATIVE 05/05/2022 04:43 PM COLORU Yellow 05/05/2022 04:43 PM PHUR 6.5 05/05/2022 04:43 PM WBCUA None 05/05/2022 04:43 PM RBCUA None 05/05/2022 04:43 PM MUCUS NOT REPORTED 12/05/2018 06:15 AM TRICHOMONAS NOT REPORTED 12/05/2018 06:15 AM YEAST NOT REPORTED 12/05/2018 06:15 AM BACTERIA 1+ 05/05/2022 04:43 PM SPECGRAV 1.020 05/05/2022 04:43 PM LEUKOCYTESUR NEGATIVE 05/05/2022 04:43 PM UROBILINOGEN Normal 05/05/2022 04:43 PM BILIRUBINUR NEGATIVE 05/05/2022 04:43 PM BILIRUBINUR NEGATIVE 10/31/2010 12:33 PM GLUCOSEU NEGATIVE 05/05/2022 04:43 PM GLUCOSEU NEGATIVE 10/31/2010 12:33 PM KETUA NEGATIVE 05/05/2022 04:43 PM AMORPHOUS TRACE 05/05/2022 04:43 PM HgBA1c: No results found for: LABA1C Lactic Acid: Lab Results Component Value Date/Time LACTA 1.5 05/08/2022 11:30 PM LACTA 1.3 10/17/2013 06:20 PM Troponin: No results for input(s): TROPONINI in the last 72 hours. CRP: No results for input(s): CRP in the last 72 hours. Radiology/Imaging: FL SMALL BOWEL FOLLOW THROUGH ONLY Final Result Mildly distended loops of small bowel in the left abdomen with normal small bowel transit time. XR ACUTE ABD SERIES CHEST 1 VW Final Result No acute cardiopulmonary process. Nonspecific bowel gas pattern without evidence for obstruction. Gastric tube with the tip in the gastric fundus. XR ABDOMEN (KUB) (SINGLE AP VIEW) Final Result Dilated air-filled loops of bowel concerning for degree of obstruction. Gastric tube with the tip in the gastric fundus. XR ABDOMEN FOR NG/OG/NE TUBE PLACEMENT Final Result Tip of the enteric tube projects over the gastric body, side port projects over the gastric body. Partially imaged bowel loops are dilated, similar to prior. XR ABDOMEN (KUB) (SINGLE AP VIEW) Final Result Multiple dilated small bowel loops, ileus versus small-bowel obstruction. The stomach is distended with intraluminal air. ASSESSMENT / PLAN: MEDICAL DECISION MAKING: Primary Problem(s): Small bowel obstruction (HCC) Differential diagnoses: Ileus Condition is a chronic illness with exacerbation, progression or side effects of treatment Condition is stable Treatment plan: Consultation: General surgery Imaging: Jennifer MCQUEEN-No obstruction Medications: Stop IV fluids IV Protonix Medication Monitoring / High Risk Medications: none NG All bowel follow-through with Gastrografin today Up to chair Seizure disorder Condition is a chronic stable condition Treatment plan: Continue current treatment Imaging: no further imaging studies ordered today Medications: IV Keppra IV Vimpat Nutrition status: Well developed, well nourished with no malnutrition Subacute Nurse consult initiated Hospital Prophylaxis: DVT: Lovenox Stress Ulcer: Disposition: Shared decision making: All test results, treatment options and disposition options were discussed with the patient today Social determinants of health that may impact management: Resides in Usp Code status: Full Code Disposition: Discharge plan is pending [facility] Advanced Care Planning documentation: [x] I have confirmed that the patient's Advance Care Plan is present, Code Status is documented, orsurrogate decision maker is listed in the patient's medical record [If yes , STOP HERE] [] The patient's Advance Care Plan is NOT present because: [] I confirmed today that the patient does not wish or was not able to name a surrogate decision maker or provide and advance care plan. [] Hospice care is currently being provided or has been provided within the calendar year. [] I did NOT confirm today the presence of an Advance Care Plan or surrogate decision maker documented within the patient's medical record. [DOES NOT SATISFY [facility] PERFORMANCE] Dorota Woodson, RAISA - TRUCK CAR AND BUS CLEANER , CRANKSHAFT STRAIGHTENER, BREAKER UP-C Hospitalist Medicine 05/12/2022, 7:10 AM * Keyanna Friend RN - 05/11/2022 6:53 PM EST Patient shift assessment and vitals completed at this time as charted. Patient is resting in bed and denies pain. Patient is alert and oriented to self and place but not to time and situation. Patient repositioned in bed for comfort. Patient denies further needs, call light is in reach, will continue to monitor. * Cydney Coffey RN - 05/11/2022 5:15 PM EST Pt's NG tube removed at this time. Pt tolerated well. * Cydney Coffey RN - 05/11/2022 5:07 PM EST Parking Enforcement Specialist spoke with Dr. Patel at this time for order to pull pt's NG tube and place on clear liquid diet. * Cydney Coffey RN - 05/11/2022 3:02 PM EST Parking Enforcement Specialist got report from another RN on floor that pt has a seizure implant device on his right side by his armpit. Pt has device/ magnet in locked cabinet. * Cydney Coffey RN - 05/11/2022 1:24 PM EST Parking Enforcement Specialist to bedside to complete afternoon assessment. Upon entry to room, pt awake in bed, respirations even and unlabored while on room air. Vitals obtained and assessment completed, see flow sheet for details. Pt oriented to self and place but discontented to time and situation. Lung sounds remain rhonchi throughout. Pt denies any pain. Pt repositioned for comfort at this time. Pt denies further needs from jingle writer at this time. Call light in reach. Care ongoing. * Cydney Coffey RN - 05/11/2022 12:49 PM EST Parking Enforcement Specialist completed straight cath at this time. Pt tolerated well. Output was 400ml. Pt also was incontinent of bowel at this time and cleaned with ARA Chavez at this time. * Kathy Ospina - 05/11/2022 10:43 AM EST Patient unable to void, bladder scan 398, dorota salter notified * Cydney Coffey RN - 05/11/2022 9:52 AM EST Parking Enforcement Specialist spoke with Pharmacy at this time about pt's ATB not scanning in the MAR with partial dose and Pharmacy said to override the medication in the system. * Cydney Coffey RN - 05/11/2022 7:43 AM EST Parking Enforcement Specialist to bedside to complete morning assessment. Upon entry to room, pt in bed eyes closed, respirations even and unlabored while on room air. Vitals obtained and assessment completed, see flow sheet for details. Pt oriented to self but disoriented to place, time and situation. Pt denies any pain.Rhonchi heard throughout lungs. Pt has occasional wet, strong cough. Right lower extremities has trace, non-pitting edema and left lower extremity has +1 pitting edema. Pt repositioned for comfort and checked for incontinence and pt is dry at this time. Pt denies needs from jingle writer at this time. Call light in reach. Care ongoing. * Dorota SalterRAISA Acosta - TRUCK CAR AND BUS CLEANER - 05/11/2022 7:19 AM EST Progress Note SUBJECTIVE: Patient seen for f/u of Small bowel obstruction (HCC). He resting in bed with eyes closed easy but audible moist respirations. NG to LIWS. No complaints ROS: Constitutional: negative for fevers, and negative for chills. Respiratory: negative for shortness of breath, negative for cough, and negative for wheezing Cardiovascular: negative for chest pain, and negative for palpitations Gastrointestinal: negative for abdominal pain, negative for nausea,negative for vomiting, negative for diarrhea, and negative for constipation All other systems were reviewed with the patient and are negative unless otherwise stated in HPI OBJECTIVE: Vitals: Vitals: 05/11/22 0115 BP: 121/78 Pulse: 94 Resp: 20 Temp: 97.9 F (36.6 C) SpO2: 92% Weight: 180 lb 8 oz (81.9 kg) Height: 5' 6 (167.6 cm) Weight Wt Readings from Last 3 Encounters: 05/11/22 180 lb 8 oz (81.9 kg) 12/14/15 209 lb (94.8 kg) 12/08/15 209 lb 3.5 oz (94.9 kg) Body mass index is 29.13 kg/m . 24HR INTAKE/OUTPUT: Intake/Output Summary (Last 24 hours) at 05/11/2022 0719 Last data filed at 05/11/2022 0545 Gross per 24 hour Intake 1048.4 ml Output 1050 ml Net -1.6 ml Exam: GEN: Awake, alert and oriented to person and place only. EYES: EOMI, pupils equal NECK: Supple. No lymphadenopathy. No carotid bruit CVS: regular rate and rhythm, no audible murmur PULM: upper airway rhonchi but otherwise clear , no acute respiratory distress ABD: Bowels sounds hypoactive tympanic. Abdomen is soft. No distention. no tenderness to palpation. EXT: 1+ edema bilaterally . No calf tenderness. NEURO: Moves all extremities. Motor and sensory are grossly intact SKIN: No rashes. No skin lesions. Diagnostic Data: Complete Blood Count: Recent Labs 05/09/22 0525 05/10/22 0535 05/11/22 0550 WBC 12.7* 13.4* 11.4* RBC 4.41 3.55* 3.35* HGB 14.8 12.0* 11.4* HCT 43.7 35.9* 34.8* MCV 99.1 101.1 103.9* MCH 33.6* 33.8* 34.0* MCHC 33.9 33.4 32.8 RDW 12.9 13.1 13.0 PLT 285 170 147 MPV 9.3 9.2 10.2 Last 3 Blood Glucose: Recent Labs 05/08/22 2330 05/09/22 0525 05/10/22 0535 05/11/22 0550 GLUCOSE 125* 120* 108* 82 Comprehensive Metabolic Profile: Recent Labs 05/09/22 0525 05/10/22 0535 05/11/22 0550 NA 143 145* 146* K 4.3 3.8 3.9 CL 99 107 109* CO2 32* 28 23 BUN 39* 29* 25* CREATININE 1.72* 1.02 1.00 GLUCOSE 120* 108* 82 CALCIUM 10.7* 9.0 9.0 PROT 8.6* 6.8 6.9 LABALBU 4.7 3.5 3.3* BILITOT 0.6 0.6 0.9 ALKPHOS 172* 118 108 AST 16 13 17 ALT 14 10 12 Urinalysis: Lab Results Component Value Date/Time NITRU NEGATIVE 05/05/2022 04:43 PM COLORU Yellow 05/05/2022 04:43 PM PHUR 6.5 05/05/2022 04:43 PM WBCUA None 05/05/2022 04:43 PM RBCUA None 05/05/2022 04:43 PM MUCUS NOT REPORTED 12/05/2018 06:15 AM TRICHOMONAS NOT REPORTED 12/05/2018 06:15 AM YEAST NOT REPORTED 12/05/2018 06:15 AM BACTERIA 1+ 05/05/2022 04:43 PM SPECGRAV 1.020 05/05/2022 04:43 PM LEUKOCYTESUR NEGATIVE 05/05/2022 04:43 PM UROBILINOGEN Normal 05/05/2022 04:43 PM BILIRUBINUR NEGATIVE 05/05/2022 04:43 PM BILIRUBINUR NEGATIVE 10/31/2010 12:33 PM GLUCOSEU NEGATIVE 05/05/2022 04:43 PM GLUCOSEU NEGATIVE 10/31/2010 12:33 PM KETUA NEGATIVE 05/05/2022 04:43 PM AMORPHOUS TRACE 05/05/2022 04:43 PM HgBA1c: No results found for: LABA1C Lactic Acid: Lab Results Component Value Date/Time LACTA 1.5 05/08/2022 11:30 PM LACTA 1.3 10/17/2013 06:20 PM Troponin: No results for input(s): TROPONINI in the last 72 hours. CRP: No results for input(s): CRP in the last 72 hours. Radiology/Imaging: XR ACUTE ABD SERIES CHEST 1 VW Final Result No acute cardiopulmonary process. Nonspecific bowel gas pattern without evidence for obstruction. Gastric tube with the tip in the gastric fundus. XR ABDOMEN (KUB) (SINGLE AP VIEW) Final Result Dilated air-filled loops of bowel concerning for degree of obstruction. Gastric tube with the tip in the gastric fundus. XR ABDOMEN FOR NG/OG/NE TUBE PLACEMENT Final Result Tip of the enteric tube projects over the gastric body, side port projects over the gastric body. Partially imaged bowel loops are dilated, similar to prior. XR ABDOMEN (KUB) (SINGLE AP VIEW) Final Result Multiple dilated small bowel loops, ileus versus small-bowel obstruction. The stomach is distended with intraluminal air. ASSESSMENT / PLAN: MEDICAL DECISION MAKING: Primary Problem(s): Small bowel obstruction (HCC) Differential diagnoses: Ileus Condition is a chronic illness with exacerbation, progression or side effects of treatment Condition is stable Treatment plan: Consultation: General surgery Imaging: Jennifer MCQUEEN-No obstruction Medications: IV fluids IV Protonix Medication Monitoring / High Risk Medications: none NG All bowel follow-through with Gastrografin today Up to chair Seizure disorder Condition is a chronic stable condition Treatment plan: Continue current treatment Imaging: no further imaging studies ordered today Medications: IV Keppra IV Vimpat Nutrition status: Well developed, well nourished with no malnutrition Subacute Nurse consult initiated Hospital Prophylaxis: DVT: Lovenox Stress Ulcer: Disposition: Shared decision making: All test results, treatment options and disposition options were discussed with the patient today Social determinants of health that may impact management: Resides in Usp Code status: Full Code Disposition: Discharge plan is pending [facility] Advanced Care Planning documentation: [x] I have confirmed that the patient's Advance Care Plan is present, Code Status is documented, orsurrogate decision maker is listed in the patient's medical record [If yes , STOP HERE] [] The patient's Advance Care Plan is NOT present because: [] I confirmed today that the patient does not wish or was not able to name a surrogate decision maker or provide and advance care plan. [] Hospice care is currently being provided or has been provided within the calendar year. [] I did NOT confirm today the presence of an Advance Care Plan or surrogate decision maker documented within the patient's medical record. [DOES NOT SATISFY [employer] PER[employer]MANCE] Dorota Woodson, CRANKSHAFT STRAIGHTENER - TRUCK CAR AND BUS CLEANER , CRANKSHAFT STRAIGHTENER, BREAKER UP-C [facility] Medicine 05/11/2022, 7:19 AM Associated attestation - Becca Patel MD - 05/11/2022 4:54 PM EST Attestation 05/11/22 Becca Patel MD Patient: Amol Taylor Date of Admission: 05/08/2022 10:46 PM Hospital Day # 2 Date of Evaluation: 05/11/2022 I personally evaluated and examined the patient [id number] in conjunction with the BREAKER UP and agree with the management and dispostition of the patient. Please see BREAKER UP's progress note for full details. My gee findings are: OBJECTIVE: Vitals: Reviewed Exam: GEN: Awake, alert and oriented x 3. no acute distress CVS: RRR, no murmur, rub or gallop PULM: CTA, no wheezes, rales or rhonchi ABD: Bowels sounds normal. Abdomen is soft. No distention. No tenderness. EXT: no edema. No calf tenderness Diagnostic Data: All available data reviewed ASSESSMENT: Principal Problem: Small bowel obstruction (HCC) / Operation 10-19-2013 Active Problems: Seizures (HCC) Chronic MR (mental retardation), severe Resolved Problems: * No resolved hospital problems. * PLAN: See PA's note for full details of outlined plan Small bowel follow-through and if okay start clear liquids Becca Patel MD, M.D. 05/11/2022 4:53 PM * Usama Coffey RN - 05/11/2022 1:15 AM EST Parking Enforcement Specialist at bedside for shift assessment. Patient is alert and oriented to self and place only. Calm and cooperative with assessment. Rhonchi auscultated in upper airways and diminished in bases- tachyphemic when woken for assessment. Bowel sounds active x4- no reports of pain or discomfort. Patient free of incontinence at this time and denies needs for restroom. Denying any additional needs, call light placed within reach, bed in lowest position and alarm engaged to promote patient safety. Parking Enforcement Specialist encourages patient to use call light for assistance. * Whitney Freed RN - 05/10/2022 6:30 PM EST Patient resting comfortably at this time. Patient denies any pain and any other needs at this time.Patient alert & oriented to self and that he is in the hospital. Able to follow commands. Assessment and vitals as charted. Bed alarm on, bed locked, gripper socks on, call light within reach andable to use appropriately. Will continue to monitor this shift. * Dorota Woodson APRN - OTONIEL - 05/10/2022 7:57 AM EST Progress Note SUBJECTIVE: Patient seen for f/u of Small bowel obstruction (HCC). He resting in bed with eyes closed easy but audible moist respirations. NG to LIWS. ROS: Constitutional: negative for fevers, and negative for chills. Respiratory: negative for shortness of breath, negative for cough, and negative for wheezing Cardiovascular: negative for chest pain, and negative for palpitations Gastrointestinal: negative for abdominal pain, negative for nausea,negative for vomiting, negative for diarrhea, and negative for constipation All other systems were reviewed with the patient and are negative unless otherwise stated in HPI OBJECTIVE: Vitals: Vitals: 05/10/22 0730 BP: 122/64 Pulse: 94 Resp: 18 Temp: 99.8 F (37.7 C) SpO2: 93% Weight: 181 lb (82.1 kg) Height: 5' 6 (167.6 cm) Weight Wt Readings from Last 3 Encounters: 05/10/22 181 lb (82.1 kg) 12/14/15 209 lb (94.8 kg) 12/08/15 209 lb 3.5 oz (94.9 kg) Body mass index is 29.21 kg/m . 24HR INTAKE/OUTPUT: Intake/Output Summary (Last 24 hours) at 05/10/2022 0757 Last data filed at 05/10/2022 0736 Gross per 24 hour Intake 2501.4 ml Output 650 ml Net 1851.4 ml Exam: GEN: Awake, alert and oriented to person and place only. EYES: EOMI, pupils equal NECK: Supple. No lymphadenopathy. No carotid bruit CVS: regular rate and rhythm, no audible murmur PULM: upper airway rhonchi but otherwise clear , no acute respiratory distress ABD: Bowels sounds hypoactive tympanic. Abdomen is soft. No distention. no tenderness to palpation. EXT: no edema bilaterally . No calf tenderness. NEURO: Moves all extremities. Motor and sensory are grossly intact SKIN: No rashes. No skin lesions. Diagnostic Data: Complete Blood Count: Recent Labs 05/08/22 2330 05/09/22 0525 05/10/22 0535 WBC 14.9* 12.7* 13.4* RBC 4.40 4.41 3.55* HGB 14.9 14.8 12.0* HCT 43.1 43.7 35.9* MCV 98.0 99.1 101.1 MCH 33.9* 33.6* 33.8* MCHC 34.6 33.9 33.4 RDW 12.9 12.9 13.1 PLT 305 285 170 MPV 9.2 9.3 9.2 Last 3 Blood Glucose: Recent Labs 05/08/22232905/09/22 0525 05/10/22 0535 GLUCOSE 125* 120* 108* Comprehensive Metabolic Profile: Recent Labs 05/08/22 2330 05/09/22 0525 05/10/22 0535 NA 139 143 145* K 4.0 4.3 3.8 CL 99 99 107 CO2 24 32* 28 BUN 34* 39* 29* CREATININE 1.71* 1.72* 1.02 GLUCOSE 125* 120* 108* CALCIUM 10.4 10.7* 9.0 PROT 8.8* 8.6* 6.8 LABALBU 4.6 4.7 3.5 BILITOT 0.4 0.6 0.6 ALKPHOS 176* 172* 118 AST 15 16 13 ALT 15 14 10 Urinalysis: Lab Results Component Value Date/Time NITRU NEGATIVE 05/05/2022 04:43 PM COLORU Yellow 05/05/2022 04:43 PM PHUR 6.5 05/05/2022 04:43 PM WBCUA None 05/05/2022 04:43 PM RBCUA None 05/05/2022 04:43 PM MUCUS NOT REPORTED 12/05/2018 06:15 AM TRICHOMONAS NOT REPORTED 12/05/2018 06:15 AM YEAST NOT REPORTED 12/05/2018 06:15 AM BACTERIA 1+ 05/05/2022 04:43 PM SPECGRAV 1.020 05/05/2022 04:43 PM LEUKOCYTESUR NEGATIVE 05/05/2022 04:43 PM UROBILINOGEN Normal 05/05/2022 04:43 PM BILIRUBINUR NEGATIVE 05/05/2022 04:43 PM BILIRUBINUR NEGATIVE 10/31/2010 12:33 PM GLUCOSEU NEGATIVE 05/05/2022 04:43 PM GLUCOSEU NEGATIVE 10/31/2010 12:33 PM KETUA NEGATIVE 05/05/2022 04:43 PM AMORPHOUS TRACE 05/05/2022 04:43 PM HgBA1c: No results found for: LABA1C Lactic Acid: Lab Results Component Value Date/Time LACTA 1.5 05/08/2022 11:30 PM LACTA 1.3 10/17/2013 06:20 PM Troponin: No results for input(s): TROPONINI in the last 72 hours. CRP: No results for input(s): CRP in the last 72 hours. Radiology/Imaging: XR ABDOMEN (KUB) (SINGLE AP VIEW) Final Result Dilated air-filled loops of bowel concerning for degree of obstruction. Gastric tube with the tip in the gastric fundus. XR ABDOMEN FOR NG/OG/NE TUBE PLACEMENT Final Result Tip of the enteric tube projects over the gastric body, side port projects over the gastric body. Partially imaged bowel loops are dilated, similar to prior. XR ABDOMEN (KUB) (SINGLE AP VIEW) Final Result Multiple dilated small bowel loops, ileus versus small-bowel obstruction. The stomach is distended with intraluminal air. XR ACUTE ABD SERIES CHEST 1 VW (Results Pending) ASSESSMENT / PLAN: MEDICAL DECISION MAKING: Primary Problem(s): Small bowel obstruction (HCC) Differential diagnoses: Ileus Condition is a chronic illness with exacerbation, progression or side effects of treatment Condition is stable Treatment plan: Consultation: General surgery Imaging: Jennifer monteiro Medications: IV fluids IV Protonix Medication Monitoring / High Risk Medications: none NG to low intermittent wall suction Up to chair Seizure disorder Condition is a chronic stable condition Treatment plan: Continue current treatment Imaging: no further imaging studies ordered today Medications: IV Keppra IV Vimpat Nutrition status: Well developed, well nourished with no malnutrition Subacute Nurse consult initiated Hospital Prophylaxis: DVT: Lovenox Stress Ulcer: Disposition: Shared decision making: All test results, treatment options and disposition options were discussed with the patient today Social determinants of health that may impact management: Resides in Usp Code status: Full Code Disposition: Discharge plan is pending [facility] Advanced Care Planning documentation: [x] I have confirmed that the patient's Advance Care Plan is present, Code Status is documented, orsurrogate decision maker is listed in the patient's medical record [If yes , STOP HERE] [] The patient's Advance Care Plan is NOT present because: [] I confirmed today that the patient does not wish or was not able to name a surrogate decision maker or provide and advance care plan. [] Hospice care is currently being provided or has been provided within the calendar year. [] I did NOT confirm today the presence of an Advance Care Plan or surrogate decision maker documented within the patient's medical record. [DOES NOT SATISFY MIPS PERFORMANCE] Dorota Woodson APRN - TRUCK CAR AND BUS CLEANER , RAISA, BREAKER UP-C [facility] Medicine 05/10/2022, 7:57 AM Associated attestation - Becca Patel MD - 05/10/2022 2:23 PM EST Attestation 05/10/22 Becca Patel MD Patient: Amol Taylor Date of Admission: 05/08/2022 10:46 PM Hospital Day # 1 Date of Evaluation: 05/10/2022 I personally evaluated and examined the patient [id number] in conjunction with the BREAKER UP and agree with the management and dispostition of the patient. Please see BREAKER UP's progress note for full details. My gee findings are: OBJECTIVE: Vitals: Reviewed Exam: GEN: Awake, alert and oriented x 3. no acute distress CVS: RRR, no murmur, rub or gallop PULM: CTA, no wheezes, rales or rhonchi ABD: Bowels sounds absent. Abdomen is soft. No distention. No tenderness. EXT: no edema. No calf tenderness Diagnostic Data: All available data reviewed ASSESSMENT: Principal Problem: Small bowel obstruction (HCC) / Operation 10-19-2013 Active Problems: Seizures (HCC) Chronic MR (mental retardation), severe Resolved Problems: * No resolved hospital problems. * PLAN: See PA's note for full details of outlined plan Hen surgery f/u Becca Patel MD , M.D. 05/10/2022 2:23 PM * Keyanna Friend RN - 05/10/2022 12:09 AM EST Patient reassessment and vitals completed at this time as charted. Patient is resting in bed and denies pain at this time. Patients NG continues to be in place and is draining yellow/brown fluid. Patient states no needs, call light is in reach, will continue to monitor. * Keyanna Friend RN - 05/09/2022 6:30 PM EST Patient shift assessment and vitals completed at this time as charted. Patient is resting in bed and denies pain. Patient continues to have NG in place at 65cm that is draining. Patient states no further needs, call light in reach, will continue to monitor. * Rossi Butts RN - 05/09/2022 5:03 PM EST Pt resting in bed, no distress noted, re-assessment and vitals complete, see flow sheet for documentation, all needs met, call light within reach. * Rossi Butts RN - 05/09/2022 3:30 PM EST Rizwan BREAKER UP at bedside. * Rossi Butts RN - 05/09/2022 9:36 AM EST Parking Enforcement Specialist contacted Dr. Conde office and gave consult. * Rinku Montalvo RD, LD - 05/09/2022 8:23 AM EST Comprehensive Nutrition Assessment Type and Reason for Visit: Initial Nutrition Recommendations/Plan: Monitor NPO duration and GI status Malnutrition Assessment: Malnutrition Status: At risk for malnutrition (Comment) (05/09/22 0841) Context: Acute Illness Findings of the 6 clinical characteristics of malnutrition: Energy Intake: Mild decrease in energy intake (Comment) (at least acutely) Weight Loss: Unable to assess Body Fat Loss: No significant body fat loss Muscle Mass Loss: No significant muscle mass loss Fluid Accumulation: No significant fluid accumulation Line Service Technician Strength: Not Performed Nutrition Assessment: Inadequate nutrient intakes r/t altered GI status, AEB NPO and NGT suction. 2950 ml out initially, but only 50 ml out since canister replaced overnight. Uncertain weight history, with losses from historical values noted. Likely has had acute losses with vomiting and loose bm tag marker (question the 199# admission weight vs 180# now). Is without visual malnutrition indices which may accompany singnificant weight losses. Ca++ mildly elevated and would ? volume deficit vs. over-supplmentation (on Ca++ supps tag marker). History or low vit D, on supplement tag marker. Asleep with NGT in place. Nutrition Related Findings: lower lean body mass. hypoactive b/s. Wound Type: None Current Nutrition Intake & Therapies: Average Meal Intake: NPO Average Supplements Intake: NPO Diet NPO Anthropometric Measures: Height: 5' 6 (167.6 cm) [place] Body Weight (IBW): 142 lbs (65 kg) Admission Body Weight: 199 lb (90.3 kg) Current Body Weight: 180 lb (81.6 kg), 126.8 % IBW. Weight Source: Bed Scale Current BMI (kg/m2): 29.1 Usual Body Weight: 209 lb (94.8 kg) (2016) % Weight Change (Calculated): -13.9 Weight Adjustment For: No Adjustment BMI Categories: Overweight (BMI 25.0-29.9) Estimated Daily Nutrient Needs: Energy Requirements Based On: Kcal/kg Weight Used for Energy Requirements: Current Energy (kcal/day): 6729-9277 (18-22) Weight Used for Protein Requirements: [place] Protein (g/day): 77-90 (1.2-1.4) Method Used for Fluid Requirements: 1 ml/kcal Fluid (ml/day): 1800 Nutrition Diagnosis: Inadequate protein-energy intake related to altered GI function as evidenced by NPO or clear liquidstatus due to medical condition Lab Results Component Value Date NA 143 05/09/2022 K 4.3 05/09/2022 CL 99 05/09/2022 CO2 32 (H) 05/09/2022 BUN 39 (H) 05/09/2022 CREATININE 1.72 (H) 05/09/2022 GLUCOSE 120 (H) 05/09/2022 CALCIUM 10.7 (H) 05/09/2022 PROT 8.6 (H) 05/09/2022 LABALBU 4.7 05/09/2022 BILITOT 0.6 05/09/2022 ALKPHOS 172 (H) 05/09/2022 AST 16 05/09/2022 ALT 14 05/09/2022 LABGLOM 43 (L) 05/09/2022 GFRAA >60 09/10/2021 GLOB NOT REPORTED 04/13/2021 No results found for: LABA1C Lab Results Component Value Date VITD25 28.6 (L) 10/31/2018 Nutrition Interventions: Food and/or Nutrient Delivery: Continue NPO, Start Oral Diet Nutrition Education/Counseling: No recommendation at this time Coordination of Nutrition Care: Continue to monitor while inpatient Plan of Care discussed with: no one Goals: Goals: Meet at least 75% of estimated needs Nutrition Monitoring and Evaluation: Behavioral-Environmental Outcomes: Other (Comment) (MRDD) Food/Nutrient Intake Outcomes: Diet Advancement/Tolerance Physical Signs/Symptoms Outcomes: Biochemical Data, Fluid Status or Edema, GI Status, Weight Discharge Planning: Too soon to determine Rinku Montalvo RD, NNEKA Contact: [phone] * Rossi Butts RN - 05/09/2022 7:15 AM EST Pt resting in bed, assessment and vitals complete, patient alert and orient x4, denies pain at thistime, NG in place at 65 cm, patent draining yellow fluid, all needs met at this time, call light within reach. * Keyanna Friend RN - 05/09/2022 2:24 AM EST Patient admitted to room [address] Corona was contacted by ER about patients case. Patient is alert and oriented x4 with a history of MRDD and seizures. Patient denies pain at this time.Patient admission assessment and vitals completed along with navigator and medication list. Patienthas an NG in place that is set at low intermittent suction. Patient is from [facility] and he states that he uses a wheelchair to get around. Patient assisted with getting comfortable in bed. Patient states no further needs, call light is in reach, will continue to monitor. [facility] Phone: [phone] Hospital course Narrative* Dorota Woodson APRN - [employer]ER - 05/12/2022 11:08 AM EST Discharge Summary Aoml Taylor : 1955 Admit date: 05/08/2022 Discharge date: 05/12/2022 Admitting Physician: Becca Patel MD Discharge Diagnoses: Principal Problem: Small bowel obstruction (HCC) / Operation 10-19-2013 Active Problems: Seizures (HCC) Chronic MR (mental retardation), severe Resolved Problems: * No resolved hospital problems. * Hospital Course: Amol Taylor is a 67 y.o. male admitted with small bowel obstruction. He presented to the emergency room from the alf due to vomiting. Patient has history of small bowel obstructions and in 2013 required surgery to resolve. He is also been having loose stool. At his baseline he did not complain of pain which was normal for him. In his initial evaluation his abdomen was firm and distended and bowel sounds were hypoactive. He had no guarding or rigidity. Patient had flat affect. Radiology studies showed bowel obstruction. NG was placed while in ER and 2 L of fluid were removed immediately. Patient did have mild JOSÉ MIGUEL and was given IV fluids. Upon admission this morning patient does not complain of pain and is resting comfortably. During patient's hospitalization he continued on NG to low intermittent wall suction and radiology studies were monitored. General surgerywas consulted. Patient was given Gastrografin with small bowel series and obstruction resolved. He had 2 bowel movements. NG was removed diet was advanced and he is tolerated this well. Hemodynamically patient is stable. I did place him on MiraLAX daily and will continue this on discharge. Plan will be to discharge patient today back to his alf. Consultants: Dr. Corona, general surgery Procedures: none Complications: none Discharge Condition: fair Exam: GEN: Awake, alert and oriented to person and place only. EYES: EOMI, pupils equal NECK: Supple. No lymphadenopathy. No carotid bruit CVS: regular rate and rhythm, no audible murmur PULM: upper airway rhonchi but otherwise clear , no acute respiratory distress ABD: Bowels sounds active Abdomen is soft. No distention. no tenderness to palpation. EXT: 1+ edema bilaterally . No calf tenderness. NEURO: Moves all extremities. Motor and sensory are grossly intact SKIN: No rashes. No skin lesions. Significant Diagnostic Studies: Lab Results Component Value Date WBC 11.4 (H) 05/11/2022 HGB 11.4 (L) 05/11/2022 PLT 147 05/11/2022 Lab Results Component Value Date BUN 25 (H) 05/11/2022 CREATININE 1.00 05/11/2022 NA 146 (H) 05/11/2022 K 3.9 05/11/2022 CALCIUM 9.0 05/11/2022 CL 109 (H) 05/11/2022 CO2 23 05/11/2022 LABGLOM >60 05/11/2022 Lab Results Component Value Date WBCUA None 05/05/2022 RBCUA None 05/05/2022 EPITHUA None 05/05/2022 LEUKOCYTESUR NEGATIVE 05/05/2022 SPECGRAV 1.020 05/05/2022 GLUCOSEU NEGATIVE 05/05/2022 KETUA NEGATIVE 05/05/2022 PROTEINU NEGATIVE 05/05/2022 HGBUR NEGATIVE 05/05/2022 CASTUA NOT REPORTED 12/05/2018 CRYSTUA NOT REPORTED 12/05/2018 BACTERIA 1+ (A) 05/05/2022 YEAST NOT REPORTED 12/05/2018 XR ABDOMEN (KUB) (SINGLE AP VIEW) Result Date: 05/09/2022 EXAMINATION: ONE SUPINE XRAY VIEW(S) OF THE ABDOMEN 05/09/2022 7:44 am COMPARISON: Abdominal radiograph performed 05/09/2022. HISTORY: ORDERING SYSTEM PROVIDED HISTORY: bowel obst TECHNOLOGIST PROVIDEDHISTORY: bowel obst FINDINGS: There are dilated air-filled loops of bowel within the mid abdomen. There is no free air. There are no suspicious calcifications. There is a gastric tube with the tip in the gastric fundus. There is no acute osseous abnormality. The surrounding soft tissues are unremarkable. Dilated air-filled loops of bowel concerning for degree of obstruction. Gastric tube with the tip in the gastric fundus. XR ABDOMEN (KUB) (SINGLE AP VIEW) Result Date: 05/09/2022 EXAMINATION: ONE SUPINE XRAY VIEW(S) OF THE ABDOMEN 05/09/2022 12:48 am COMPARISON: Abdominal x-ray 10/28/2013. HISTORY: ORDERING SYSTEM PROVIDED HISTORY: SBO TECHNOLOGIST PROVIDED HISTORY: SBO FINDINGS: Multiple dilated small bowel loops containing intraluminal air, ileus versus small-bowel obstruction. The stomach is distended with intraluminal air. Lower lungs are clear. No free air. Bony structures are unremarkable. Multiple dilated small bowel loops, ileus versus small-bowel obstruction. The stomach is distended with intraluminal air. XR ABDOMEN FOR NG/OG/NE TUBE PLACEMENT Result Date: 05/09/2022 EXAMINATION: ONE SUPINE XRAY VIEW(S) OF THE ABDOMEN 05/09/2022 1:11 am COMPARISON: Abdominal x-ray 05/09/2022 HISTORY: ORDERING SYSTEM PROVIDED HISTORY: Confirmation of course of NG/OG/NE tube and location of tip of tube TECHNOLOGIST PROVIDED HISTORY: Confirmation of course of NG/OG/NE tube and location of tip of tube Portable?->Yes FINDINGS: Tip of the enteric tube projects over the gastric body, side port projects over the gastric body. Partially imaged bowel loops are dilated, similar to prior. Lower lung matta are clear. Bony structures are unremarkable. Tip of the enteric tube projects over the gastric body, side port projects over the gastric body. Partially imaged bowel loops are dilated, similar to prior. Assessment and Plan: Patient Active Problem List Diagnosis Date Noted Epilepsy (HCC) 12/14/2015 MR (mental retardation), severe 10/20/2013 Small bowel obstruction (HCC) / Operation 10-19-2013 10/18/2013 Seizures (HCC) Chronic 10/18/2013 Discharge Medications: Medication List START taking these medications polyethylene glycol 17 g packet Commonly known as: GLYCOLAX Take 17 g by mouth daily Start taking on: May 13, 2022 CONTINUE taking these medications acetaminophen 325 MG tablet Commonly known as: TYLENOL Take 2 tablets by mouth every 4 hours as needed for Pain calcium carbonate 1250 (500 Ca) MG tablet Commonly known as: OYSTER SHELL CALCIUM 500 mg finasteride 5 MG tablet Commonly known as: PROSCAR lacosamide 150 MG Tabs tablet Commonly known as: VIMPAT lamoTRIgine 200 MG tablet Commonly known as: LAMICTAL latanoprost 0.005 % ophthalmic solution Commonly known as: XALATAN LEVETIRACETAM PO primidone 250 MG tablet Commonly known as: MYSOLINE senna 8.6 MG tablet Commonly known as: SENOKOT tamsulosin 0.4 MG capsule Commonly known as: FLOMAX traZODone 50 MG tablet Commonly known as: DESYREL Vitamin D 25 MCG (1000 UT) Tabs tablet Commonly known as: CHOLECALCIFEROL STOP taking these medications levoFLOXacin 250 MG tablet Commonly known as: LEVAQUIN NONFORMULARY Where to Get Your Medications These medications were sent to [facility] #[id number] - [address] [phone] [place] [id number] polyethylene glycol 17 g packet Patient Instructions: Activity: activity as tolerated Diet: regular diet Wound Care: none needed Other: None Disposition: Discharge to Home Follow up: Patient will be followed by Carson Matamoros MD in 1-2 weeks CORE MEASURES on Discharge (if applicable) JASON/ARB in CHF: NA Statin in [place]: NA ASA in [place]: NA Statin in CVA: NA Antiplatelet in CVA: NA Total time spent on discharge services: 40 minutes Including the following activities: Evaluation and Management of patient Discussion with patient and/or surrogate about current care plan Coordination with Case Management and/or Electrical Contacts Adjuster Coordination of care with Consultants (if applicable) Coordination of care with Receiving Facility Physician (if applicable) Completion of DME forms (if applicable) Preparation of Discharge Summary Preparation of Medication Reconciliation Preparation of Discharge Prescriptions Signed: Dorota Woodson, [employer] STRAIGHTENER - [employer] CLEANER, [employer] STRAIGHTENER, BREAKER UP-C 05/12/2022, 11:08 AM Associated attestation - Becca Patel MD - 05/12/2022 1:06 PM EST I personally evaluated and examined the patient face to face in conjunction with the APC and agree with the management and disposition of the patient. My gee findings are: Patient ID: Amol Taylor [id number] Admission date: 05/08/2022 Discharge date: 05/12/2022 Admitting Physician: Becca Patel MD Primary Care Physician: Carson Matamoros MD Primary Discharge Diagnoses: Patient Active Problem List Diagnosis Date Noted Epilepsy (HCC) 12/14/2015 MR (mental retardation), severe 10/20/2013 Small bowel obstruction ([facility]) / Operation 10-19-2013 10/18/2013 Seizures ([facility]) Chronic 10/18/2013 Additional Diagnoses: Diagnosis Date MR (mental retardation) Seizures ([facility]) Ventral hernia Review of Systems: Constitutional: negative for fevers or chills Eyes: negative for visual disturbance ENT: negative for sore throat or nasal congestion Respiratory: negative for shortness of breath or cough Cardiovascular: negative for chest pain ,palpitations,pnd,syncope Gastrointestinal: negative for abd pain, nausea, vomiting, diarrhea , constipation,hemetemesis,ida,blood in stool Genitourinary: negative for dysuria, urgency ,frequency,hematuria Integument/breast: negative for skin rash or lesions Neurological: negative for unilateral weakness, numbness or tingling. Skeletal Muscular: no joint pain,jont swelling,back pain Physical exam: Exam: GEN: A & O x3, no apparent distress EYES: No gross abnormalities. NECK: normal, supple, no lymphadenopathy, no carotid bruits PULM: clear to auscultation bilaterally- no wheezes, rales or rhonchi, normal air movement, no respiratory distress COR: regular rate & rhythm, no murmurs, and no gallops ABD: soft, non-tender, non-distended, normal bowel sounds, no masses or organomegaly EXT: no cyanosis, clubbing or edema present NEURO: negative SKIN: no rashes or significant lesions Hospital Course: Amol Taylor is a 67 y.o. male admitted with small bowel obstruction. He presented to the emergency room from the alf due to vomiting. Patient has history of small bowel obstructions and in 2013 required surgery to resolve. He is also been having loose stool. At his baseline he did not complain of pain which was normal for him. In his initial evaluation his abdomen was firm and distended and bowel sounds were hypoactive. He had no guarding or rigidity. Patient had flat affect. Radiology studies showed bowel obstruction. NG was placed while in ER and 2 L of fluid were removed immediately. Patient did have mild JOSÉ MIGUEL and was given IV fluids. Upon admission this morning patient does not complain of pain and is resting comfortably. During patient's hospitalization he continued on NG to low intermittent wall suction and radiology studies were monitored. General surgerywas consulted. Patient was given Gastrografin with small bowel series and obstruction resolved. He had 2 bowel movements. NG was removed diet was advanced and he is tolerated this well. Hemodynamically patient is stable. MiraLAX 17 gm daily on discharge. Plan will be to discharge patient today backto his alf. Consultants: Gen surgery Procedures: none Complications: none Significant Diagnostic Studies: XR ABDOMEN (KUB) (SINGLE AP VIEW) Result Date: 05/09/2022 EXAMINATION: ONE SUPINE XRAY VIEW(S) OF THE ABDOMEN 05/09/2022 7:44 am COMPARISON: Abdominal radiograph performed 05/09/2022. HISTORY: ORDERING SYSTEM PROVIDED HISTORY: bowel obst TECHNOLOGIST PROVIDEDHISTORY: bowel obst FINDINGS: There are dilated air-filled loops of bowel within the mid abdomen. There is no free air. There are no suspicious calcifications. There is a gastric tube with the tip in the gastric fundus. There is no acute osseous abnormality. The surrounding soft tissues are unremarkable. Dilated air-filled loops of bowel concerning for degree of obstruction. Gastric tube with the tip in the gastric fundus. XR ABDOMEN (KUB) (SINGLE AP VIEW) Result Date: 05/09/2022 EXAMINATION: ONE SUPINE XRAY VIEW(S) OF THE ABDOMEN 05/09/2022 12:48 am COMPARISON: Abdominal x-ray 10/28/2013. HISTORY: ORDERING SYSTEM PROVIDED HISTORY: SBO TECHNOLOGIST PROVIDED HISTORY: SBO FINDINGS: Multiple dilated small bowel loops containing intraluminal air, ileus versus small-bowel obstruction. The stomach is distended with intraluminal air. Lower lungs are clear. No free air. Bony structures are unremarkable. Multiple dilated small bowel loops, ileus versus small-bowel obstruction. The stomach is distended with intraluminal air. XR ACUTE ABD SERIES CHEST 1 VW Result Date: 05/10/2022 EXAMINATION: TWO XRAY VIEWS OF THE ABDOMEN AND SINGLE XRAY VIEW OF THE CHEST 05/10/2022 8:19 am COMPARISON: Abdominal radiographs performed 05/09/2022. HISTORY: ORDERING SYSTEM PROVIDED HISTORY: SBO TECHNOLOGIST PROVIDED HISTORY: SBO FINDINGS: There is no acute consolidation or effusion. There is no p neumothorax. Mediastinal structures are unremarkable. The extrathoracic soft tissues are unremarkable. There is a nonspecific bowel gas pattern without evidence for obstruction. There is a gastric tube with the tip in the gastric fundus. There is no acute osseous abnormality. The surrounding soft tissues are unremarkable. No acute cardiopulmonary process. Nonspecific bowel gas pattern without evidence for obstruction. Gastric tube with the tip in the gastric fundus. XR ABDOMEN FOR NG/OG/NE TUBE PLACEMENT Result Date: 05/09/2022 EXAMINATION: ONE SUPINE XRAY VIEW(S) OF THE ABDOMEN 05/09/2022 1:11 am COMPARISON: Abdominal x-ray 05/09/2022 HISTORY: ORDERING SYSTEM PROVIDED HISTORY: Confirmation of course of NG/OG/NE tube and location of tip of tube TECHNOLOGIST PROVIDED HISTORY: Confirmation of course of NG/OG/NE tube and location of tip of tube Portable?->Yes FINDINGS: Tip of the enteric tube projects over the gastric body, side port projects over the gastric body. Partially imaged bowel loops are dilated, similar to prior. Lower lung matta are clear. Bony structures are unremarkable. Tip of the enteric tube projects over the gastric body, side port projects over the gastric body. Partially imaged bowel loops are dilated, similar to prior. FL SMALL BOWEL FOLLOW THROUGH ONLY Result Date: 05/11/2022 EXAMINATION: SMALL BOWEL FOLLOW THROUGH SERIES 05/11/2022 TECHNIQUE: Small bowel follow through series was performed with overhead images. COMPARISON: None HISTORY: ORDERING SYSTEM PROVIDED HISTORY: with Gastrographin for bowel obstruction TECHNOLOGIST PROVIDED HISTORY: with Gastrographin for bowel ob struction FINDINGS: There are several mildly distended loops of small bowel, most prominent in the left abdomen. Tip and side port of the enteric tube are below the GE junction with tip in the gastric fundus. There are multilevel degenerative changes in the lumbar spine. There is normal transit time to the terminal ileum, 2 hours. No focal abnormalities, strictures or obstructions are seen of thesmall bowel. Spot images of the terminal ileum are unremarkable. Mildly distended loops of small bowel in the left abdomen with normal small bowel transit time. Recent Results (from the past 96 hour(s)) CBC with Auto Differential Collection Time: 05/08/22 11:30 PM Result Value Ref Range WBC 14.9 (H) 3.5 - 11.3 k/uL RBC 4.40 4.21 - 5.77 m/uL Hemoglobin 14.9 13.0 - 17.0 g/dL Hematocrit 43.1 40.7 - 50.3 % MCV 98.0 82.6 - 102.9 fL MCH 33.9 (H) 25.2 - 33.5 pg MCHC 34.6 28.4 - 34.8 g/dL RDW 12.9 11.8 - 14.4 % Platelets 305 138 - 453 k/uL MPV 9.2 8.1 - 13.5 fL NRBC Automated 0.0 0.0 per 100 WBC Seg Neutrophils 87 (H) 36 - 65 % Lymphocytes 9 (L) 24 - 43 % Monocytes 4 3 - 12 % Eosinophils % 0 (L) 1 - 4 % Basophils 0 0 - 2 % Immature Granulocytes 0 0 % Segs Absolute 12.89 (H) 1.50 - 8.10 k/uL Absolute Lymph # 1.30 1.10 - 3.70 k/uL Absolute [place] # 0.58 0.10 - 1.20 k/uL Absolute Eos # <0.03 0.00 - 0.44 k/uL Basophils Absolute 0.05 0.00 - 0.20 k/uL Absolute Immature Granulocyte 0.06 0.00 - 0.30 k/uL Lipase Collection Time: 05/08/22 11:30 PM Result Value Ref Range Lipase 46 13 - 60 U/L Magnesium Collection Time: 05/08/22 11:30 PM Result Value Ref Range Magnesium 1.9 1.6 - 2.6 mg/dL Lactic Acid Collection Time: 05/08/22 11:30 PM Result Value Ref Range Lactic Acid 1.5 0.5 - 2.2 mmol/L Hepatic Function Panel Collection Time: 05/08/22 11:30 PM Result Value Ref Range Albumin 4.6 3.5 - 5.2 g/dL Alkaline Phosphatase 176 (H) 40 - 129 U/L ALT 15 5 - 41 U/L AST 15 <40 U/L Total Bilirubin 0.4 0.3 - 1.2 mg/dL Bilirubin, Direct <0.1 <0.3 mg/dL Bilirubin, Indirect Can not be calculated 0.0 - 1.0 mg/dL Total Protein 8.8 (H) 6.4 - 8.3 g/dL Albumin/Globulin Ratio 1.1 1.0 - 2.5 BMP Collection Time: 05/08/22 11:30 PM Result Value Ref Range Glucose 125 (H) 70 - 99 mg/dL BUN 34 (H) 8 - 23 mg/dL Creatinine 1.71 (H) 0.70 - 1.20 mg/dL Est, Glom Filt Rate 44 (L) >60 mL/min/1.73m2 Bun/Cre Ratio 20 9 - 20 Calcium 10.4 8.6 - 10.4 mg/dL Sodium 139 135 - 144 mmol/L Potassium 4.0 3.7 - 5.3 mmol/L Chloride 99 98 - 107 mmol/L CO2 24 20 - 31 mmol/L Anion Gap 16 9 - 17 mmol/L CBC auto differential Collection Time: 05/09/22 5:25 AM Result Value Ref Range WBC 12.7 (H) 3.5 - 11.3 k/uL RBC 4.41 4.21 - 5.77 m/uL Hemoglobin 14.8 13.0 - 17.0 g/dL Hematocrit 43.7 40.7 - 50.3 % MCV 99.1 82.6 - 102.9 fL MCH 33.6 (H) 25.2 - 33.5 pg MCHC 33.9 28.4 - 34.8 g/dL RDW 12.9 11.8 - 14.4 % Platelets 285 138 - 453 k/uL MPV 9.3 8.1 - 13.5 fL NRBC Automated 0.0 0.0 per 100 WBC Seg Neutrophils 77 (H) 36 - 65 % Lymphocytes 15 (L) 24 - 43 % Monocytes 8 3 - 12 % Eosinophils % 0 (L) 1 - 4 % Basophils 0 0 - 2 % Immature Granulocytes 0 0 % Segs Absolute 9.73 (H) 1.50 - 8.10 k/uL Absolute Lymph # 1.88 1.10 - 3.70 k/uL Absolute [place] # 1.00 0.10 - 1.20 k/uL Absolute Eos # <0.03 0.00 - 0.44 k/uL Basophils Absolute 0.03 0.00 - 0.20 k/uL Absolute Immature Granulocyte 0.05 0.00 - 0.30 k/uL Comprehensive Metabolic Panel w/ Reflex to MG Collection Time: 05/09/22 5:25 AM Result Value Ref Range Glucose 120 (H) 70 - 99 mg/dL BUN 39 (H) 8 - 23 mg/dL Creatinine 1.72 (H) 0.70 - 1.20 mg/dL Est, Glom Filt Rate 43 (L) >60 mL/min/1.73m2 Bun/Cre Ratio 23 (H) 9 - 20 Calcium 10.7 (H) 8.6 - 10.4 mg/dL Sodium 143 135 - 144 mmol/L Potassium 4.3 3.7 - 5.3 mmol/L Chloride 99 98 - 107 mmol/L CO2 32 (H) 20 - 31 mmol/L Anion Gap 12 9 - 17 mmol/L Alkaline Phosphatase 172 (H) 40 - 129 U/L ALT 14 5 - 41 U/L AST 16 <40 U/L Total Bilirubin 0.6 0.3 - 1.2 mg/dL Total Protein 8.6 (H) 6.4 - 8.3 g/dL Albumin 4.7 3.5 - 5.2 g/dL Albumin/Globulin Ratio 1.2 1.0 - 2.5 CBC auto differential Collection Time: 05/10/22 5:35 AM Result Value Ref Range WBC 13.4 (H) 3.5 - 11.3 k/uL RBC 3.55 (L) 4.21 - 5.77 m/uL Hemoglobin 12.0 (L) 13.0 - 17.0 g/dL Hematocrit 35.9 (L) 40.7 - 50.3 % MCV 101.1 82.6 - 102.9 fL MCH 33.8 (H) 25.2 - 33.5 pg MCHC 33.4 28.4 - 34.8 g/dL RDW 13.1 11.8 - 14.4 % Platelets 170 138 - 453 k/uL MPV 9.2 8.1 - 13.5 fL NRBC Automated 0.0 0.0 per 100 WBC Seg Neutrophils 82 (H) 36 - 65 % Lymphocytes 11 (L) 24 - 43 % Monocytes 7 3 - 12 % Eosinophils % 0 (L) 1 - 4 % Basophils 0 0 - 2 % Immature Granulocytes 0 0 % Segs Absolute 10.97 (H) 1.50 - 8.10 k/uL Absolute Lymph # 1.45 1.10 - 3.70 k/uL Absolute [place] # 0.87 0.10 - 1.20 k/uL Absolute Eos # <0.03 0.00 - 0.44 k/uL Basophils Absolute 0.06 0.00 - 0.20 k/uL Absolute Immature Granulocyte 0.06 0.00 - 0.30 k/uL Comprehensive Metabolic Panel w/ Reflex to MG Collection Time: 05/10/22 5:35 AM Result Value Ref Range Glucose 108 (H) 70 - 99 mg/dL BUN 29 (H) 8 - 23 mg/dL Creatinine 1.02 0.70 - 1.20 mg/dL Est, Glom Filt Rate >60 >60 mL/min/1.73m2 Bun/Cre Ratio 28 (H) 9 - 20 Calcium 9.0 8.6 - 10.4 mg/dL Sodium 145 (H) 135 - 144 mmol/L Potassium 3.8 3.7 - 5.3 mmol/L Chloride 107 98 - 107 mmol/L CO2 28 20 - 31 mmol/L Anion Gap 10 9 - 17 mmol/L Alkaline Phosphatase 118 40 - 129 U/L ALT 10 5 - 41 U/L AST 13 <40 U/L Total Bilirubin 0.6 0.3 - 1.2 mg/dL Total Protein 6.8 6.4 - 8.3 g/dL Albumin 3.5 3.5 - 5.2 g/dL Albumin/Globulin Ratio 1.1 1.0 - 2.5 Glucose, Whole Blood Collection Time: 05/10/22 8:20 PM Result Value Ref Range POC Glucose 88 74 - 100 mg/dL CBC auto differential Collection Time: 05/11/22 5:50 AM Result Value Ref Range WBC 11.4 (H) 3.5 - 11.3 k/uL RBC 3.35 (L) 4.21 - 5.77 m/uL Hemoglobin 11.4 (L) 13.0 - 17.0 g/dL Hematocrit 34.8 (L) 40.7 - 50.3 % MCV 103.9 (H) 82.6 - 102.9 fL MCH 34.0 (H) 25.2 - 33.5 pg MCHC 32.8 28.4 - 34.8 g/dL RDW 13.0 11.8 - 14.4 % Platelets 147 138 - 453 k/uL MPV 10.2 8.1 - 13.5 fL NRBC Automated 0.0 0.0 per 100 WBC Seg Neutrophils 80 (H) 36 - 65 % Lymphocytes 11 (L) 24 - 43 % Monocytes 9 3 - 12 % Eosinophils % 0 (L) 1 - 4 % Basophils 0 0 - 2 % Immature Granulocytes 0 0 % Segs Absolute 9.05 (H) 1.50 - 8.10 k/uL Absolute Lymph # 1.27 1.10 - 3.70 k/uL Absolute [place] # 0.98 0.10 - 1.20 k/uL Absolute Eos # <0.03 0.00 - 0.44 k/uL Basophils Absolute 0.04 0.00 - 0.20 k/uL Absolute Immature Granulocyte 0.05 0.00 - 0.30 k/uL Comprehensive Metabolic Panel w/ Reflex to MG Collection Time: 05/11/22 5:50 AM Result Value Ref Range Glucose 82 70 - 99 mg/dL BUN 25 (H) 8 - 23 mg/dL Creatinine 1.00 0.70 - 1.20 mg/dL Est, Glom Filt Rate >60 >60 mL/min/1.73m2 Bun/Cre Ratio 25 (H) 9 - 20 Calcium 9.0 8.6 - 10.4 mg/dL Sodium 146 (H) 135 - 144 mmol/L Potassium 3.9 3.7 - 5.3 mmol/L Chloride 109 (H) 98 - 107 mmol/L CO2 23 20 - 31 mmol/L Anion Gap 14 9 - 17 mmol/L Alkaline Phosphatase 108 40 - 129 U/L ALT 12 5 - 41 U/L AST 17 <40 U/L Total Bilirubin 0.9 0.3 - 1.2 mg/dL Total Protein 6.9 6.4 - 8.3 g/dL Albumin 3.3 (L) 3.5 - 5.2 g/dL Albumin/Globulin Ratio 0.9 (L) 1.0 - 2.5 COVID-19, Rapid Collection Time: 05/12/22 12:22 PM Specimen: Nasopharyngeal Swab Result Value Ref Range Specimen Description .NASOPHARYNGEAL SWAB SARS-CoV-2, Rapid Not Detected Not Detected Discharge Condition: stable Disposition: home Discharge Medications: Medication List START taking these medications polyethylene glycol 17 g packet Commonly known as: GLYCOLAX Take 17 g by mouth daily Start taking on: May 13, 2022 CONTINUE taking these medications acetaminophen 325 MG tablet Commonly known as: TYLENOL Take 2 tablets by mouth every 4 hours as needed for Pain calcium carbonate 1250 (500 Ca) MG tablet Commonly known as: OYSTER SHELL CALCIUM 500 mg finasteride 5 MG tablet Commonly known as: PROSCAR lacosamide 150 MG Tabs tablet Commonly known as: VIMPAT lamoTRIgine 200 MG tablet Commonly known as: LAMICTAL latanoprost 0.005 % ophthalmic solution Commonly known as: XALATAN LEVETIRACETAM PO primidone 250 MG tablet Commonly known as: MYSOLINE senna 8.6 MG tablet Commonly known as: SENOKOT tamsulosin 0.4 MG capsule Commonly known as: FLOMAX traZODone 50 MG tablet Commonly known as: DESYREL Vitamin D 25 MCG (1000 UT) Tabs tablet Commonly known as: CHOLECALCIFEROL STOP taking these medications levoFLOXacin 250 MG tablet Commonly known as: LEVAQUIN NONFORMULARY Where to Get Your Medications These medications were sent to [id number] - [place], [place] - [address] [facility] - P [phone] F [phone] [place] [id number] polyethylene glycol 17 g packet Resume all home medications unless otherwise directed Add MiraLAX 17 g daily Stop taking Patient Instructions: Activity: activity as tolerated Diet: regular diet Wound Care: none needed Other: Follow up with pcp in 1 wk as directed Time Spent on discharge services is 40 minutes in the examination, evaluation, counseling and review of medications and discharge plan. Signed: Becca Patel MD, M.D. 05/12/2022 1:03 PM I reviewed and agree with the findings and plan documented in her note . Becca Patel MD MD documented in this encounterBON [facility] Phone: [phone] 282-660003-10-2023 Hospital Discharge instructions* Discharge Instr - JOYCE* Yolanda Pope RN - 05/12/2022 9:46 AM EST Continuity of Care Form Patient Name: Amol Taylor : 1955 Admit date: 05/08/2022 Discharge date: 05/12/22 Code Status Order: Full Code Advance Directives: Admitting Physician: Becca Patel MD PCP: Kevin Robles DO (Inactive) Discharging Nurse: Yolanda Pope Discharging Hospital Unit/Room#: 0301/0301-01 Discharging Unit Emergency Contact: Extended Emergency Contact Information Primary Emergency Contact: Susan Smith [facility] Relation: Legal Guardian Secondary Emergency Contact: Eliazar Taylor Relation: Brother/Sister Past Surgical History: Past Surgical History: Procedure Laterality Date ABDOMEN SURGERY 2012, 2013 Bowel Obstruction X2 CAST APPLICATION Left Lt. Ankle , X3 HYDROCELE EXCISION 10/2015 LAPAROSCOPY 10/19/13 with DANIEL LAPAROTOMY 10/19/13 with partial cecectomy VAGAL NERVE STIMULATION placed, then replaced VAGAL NERVE STIMULATION 12/14/2015 replaced generator battery Immunization History: Immunization History Administered Date(s) Administered COVID-19, PFIZER PURPLE top, DILUTE for use, (age 12 y+), 30mcg/0.3mL 03/10/2020, 04/06/2020, 03/16/2021 Tdap (Boostrix, Adacel) 03/04/2013 Active Problems: Patient Active Problem List Diagnosis Code Small bowel obstruction (HCC) / Operation 10-19-2013 K56.609 Seizures (HCC) Chronic R56.9 MR (mental retardation), severe F72 Epilepsy (HCC) G40.909 Isolation/Infection: Isolation No Isolation Patient Infection Status None to display Nurse Assessment: Last Vital Signs: BP (!) 119/57 Pulse 52 Temp 97.1 F (36.2 C) (Temporal) Resp 18 Ht 5' 6 (1.676 m) Wt 183 lb (83 kg) SpO2 97% BMI 29.54 kg/m Last documented pain score (0-10 scale): Last Weight: Wt Readings from Last 1 Encounters: 05/12/22 183 lb (83 kg) Mental Status: disoriented and alert IV Access: - None Nursing Mobility/ADLs: Walking Dependent Transfer Dependent Bathing Dependent Dressing Dependent Toileting Dependent Feeding Assisted at times Airplane Engineer Dependent Med Delivery whole we were mixing in applesauce Wound Care Documentation and Therapy: Incision 12/14/15 Chest Left (Active) Number of days: 2340 Elimination: Continence: Bowel: No Bladder: No Urinary Catheter: None Colostomy/Ileostomy/Ileal Conduit: No Date of Last BM: 05/11/22 Intake/Output Summary (Last 24 hours) at 05/12/2022 0945 Last data filed at 05/12/2022 0738 Gross per 24 hour Intake 2495.97 ml Output 750 ml Net 1745.97 ml I/O last 3 completed shifts: In: 3747.2 [P.O.:600; I.V.:3147.2] Out: 1150 [Urine:600; Emesis/NG output:550] Safety Concerns: At Risk for Falls Impairments/Disabilities: Speech Nutrition Therapy: Current Nutrition Therapy: - Oral Diet: General Routes of Feeding: Oral Liquids: Thin Liquids Daily Fluid Restriction: no Last Modified Barium Swallow with Video (Video Swallowing Test): not done Treatments at the Time of Hospital Discharge: Respiratory Treatments: none Oxygen Therapy: is not on home oxygen therapy. Ventilator: - No ventilator support Rehab Therapies: none Weight Bearing Status/Restrictions: No weight bearing restrictions Other Medical Equipment (for information only, NOT a DME order): wheelchair Other Treatments: none Patient's personal belongings (please select all that are sent with patient): Helmet and seizure bracelet RN SIGNATURE: CASE MANAGEMENT/SOCIAL WORK SECTION Inpatient Status Date: 05/09/22 Readmission Risk Assessment Score: Readmission Risk Risk of Unplanned Readmission: 8 Discharging to Facility/ Agency Name: [facility] Address:[address] [place] [address] Phone: Fax: Dialysis Facility (if applicable) Name: Address: Dialysis Schedule: Phone: Fax: [facility] Neurologist/Electrical Contacts Adjuster signature: PHYSICIAN SECTION Prognosis: {Prognosis:2027307217} Condition at Discharge: { Patient Condition:087179856} Rehab Potential (if transferring to Rehab): {Prognosis:0142519897} Recommended Labs or Other Treatments After Discharge: Physician Certification: I certify the above information and transfer of Amol Taylor is necessaryfor the continuing treatment of the diagnosis listed and that he requires Intermediate/Mental Retardation/Developmental Disabilities Care for greater 30 days. Update Admission H&P: {[facility] DME Changes in HandP:916061863} PHYSICIAN SIGNATURE: {Esignature:785066719} documented in this encounterBON [facility] [employer] Phone: 1(754) 662-581505-03-2022 Hospital Discharge instructions Patient Education 07/05/2021 13:11:32 Open Small Bowel Resection Open Small Bowel Resection Small bowel resection is surgery to remove part of the small bowel. The small bowel, also called the small intestine, is the top part of the intestines. It is part of the digestive system. When food leaves the stomach, it goes into the small bowel. Most food is then absorbed into the body. A small bowel resection may be needed if the small bowel becomes blocked or harmed by disease. One type of procedure is called an open resection. An open surgery means that the surgeon will do the procedure through one long incision in the abdomen. After removing part of the bowel, the surgeon willjoin the remaining parts together so that food can pass through again. Tell a health care provider about: Any allergies you have. All medicines you are taking, including vitamins, herbs, eye drops, creams, and wfsm-sgo-epyikny medicines. Any problems you or family members have had with anesthetic medicines. Any blood disorders you have. Any surgeries you have had. Any medical conditions you have. Whether you are or may be . What are the risks? Generally, this is a safe procedure. However, problems may occur, including: Bleeding. Infection. Allergic reactions to medicines. Damage to nearby structures or organs. A blood clot that forms somewhere in the veins and travels to the lung (pulmonary embolism). Problems with the bowel, such as: ?Leaking of intestinal fluids into the abdomen. ?A long delay before the return of bowel function (ileus). ?Not being able to absorb enough vitamins and nutrition through the small bowel. A hernia. This occurs when the abdomen bulges out. It may require surgery in the future. Scarring where the incision is made or inside your body, around the intestines. If scarring occurs inside the body, surgery may be required in the future. What happens before the procedure? Staying hydrated Follow instructions from your health care provider about hydration, which may include: Up to 2 hours before the procedure you may continue to drink clear liquids, such as water, clear fruit juice, black coffee, and plain tea. Eating and drinking restrictions Follow instructions from your health care provider about eating and drinking, which may include: 8 hours before the procedure stop eating heavy meals or foods, such as meat, fried foods, or fatty foods. 6 hours before the procedure stop eating light meals or foods, such as toast or cereal. 6 hours before the procedure stop drinking milk or drinks that contain milk. 2 hours before the procedure stop drinking clear liquids. Medicines Ask your health care provider about: ?Changing or stopping your regular medicines. This is especially important if you are taking diabetes medicines or blood thinners. ?Taking medicines such as aspirin and ibuprofen. These medicines can thin your blood. Do not take these medicines unless your health care provider tells you to take them. ?Taking llch-zvt-oycqmqx medicines, vitamins, herbs, and supplements. You may need to take medicine to clean out your bowels before surgery (bowel prep). General instructions Ask your health care provider: ?How your surgery site will be marked. ?What steps will be taken to help prevent infection. These may include: ?Removing hair at the surgery site. ?Washing skin with a germ-killing soap. ?Taking antibiotic medicine. You may be asked to shower with a germ-killing soap. You may have testing, such as blood tests, X-rays, or other imaging scans that take pictures of thesmall bowel. Do not use any products that contain nicotine or tobacco for at least 4 weeks before the procedure.These products include cigarettes, e-cigarettes, and chewing tobacco. If you need help quitting, ask your health care provider. Plan to have someone take you home from the hospital or clinic. Plan to have a responsible adult care for you for at least 24 hours after you leave the hospital orclinic. This is important. What happens during the procedure? An IV will be inserted into one of your veins. You will be given one or both of the following: ?A medicine to help you relax (sedative). ?A medicine to make you fall asleep (general anesthetic). Tubes may be put into your body. ?A tube in your throat will help you breathe during the procedure. It may also be used to give you anesthetic gas during the procedure. ?A nasogastric tube will go through your nose and into your stomach. Fluids from your stomach will drain through this tube during and after the procedure. ?A small, thin tube (catheter) in your bladder will drain urine during and after the procedure. An incision will be made in the middle of your abdomen. The surgeon will remove the affected piece of small bowel and then join the bowel together again with tiesha or stitches (sutures). This will allow digested food to pass through again. The surgeon will close the incision with tiesha or sutures. The procedure may vary among health care providers and hospitals. What happens after the procedure? Your blood pressure, heart rate, breathing rate, and blood oxygen level will be monitored until youleave the hospital or clinic. You will be given medicine for pain as needed. You will continue to get fluids through the IV for a while. Also, the nasogastric tube may stay in for a few days until your bowels are working again. After the nasogastric tube is out, you can start eating food again. You will start with liquids andthen advance to more solid foods. You will be asked to get up and start walking within a day. This helps to keep blood clots from forming in your legs. To help keep your airways open and help prevent breathing problems or pneumonia: ?You may be told to breathe deeply and to cough now and then. ?You may be given a device (incentive spirometer) to help you do breathing exercises. You may need to wear compression stockings. These stockings help to prevent blood clots and reduce swelling in your legs. Summary A small bowel resection may be needed if the small bowel becomes blocked or harmed by disease. Before the procedure, follow instructions from your health care provider about taking medicines andabout eating and drinking. During the procedure, the surgeon will remove the affected piece of small bowel and then join the bowel together again with tiesha or stitches (sutures). After the procedure, your blood pressure, heart rate, breathing rate, and blood oxygen level will be monitored until you leave the hospital or clinic. This information is not intended to replace advice given to you by your health care provider. Make sure you discuss any questions you have with your health care provider. Document Released: 07/24/2011 Document Revised: 07/24/2019 Document Reviewed: 07/24/2019 [employer] Patient Education 2019 [employer]. Follow Up Care 06/11/2021 15:29:21 With:trauma clinic Address: [address] [place] [address], second floor, [address] [place] [address]- [phone] When:1 week Comments:Follow with surgery clinic on Sunday07/08/21 for wound check. [facility]05-01-2022 Evaluation + Plan noteExtracted from: Title:ACS Progress/SOAP Note Author:Kari Cole Date:07/03/21 1. Small bowel obstruction ( K56.609: Unspecified intestinal obstruction, unspecified as to partial versus complete obstruction) Epilepsy (G40.909: Epilepsy, unspecified, not intractable, without status epilepticus) Potential for deficient knowledge of cerebrovascular accident (CVA) (Z78.9: Other specified health status) Orders: Automated Diff Basic Metabolic Panel CBC w/ Auto Diff eGFR 66 y/o male s/p ex lap and hernia repair for recurrent bowel obstructions - Continue regular diet, small bites and sips and fluids via spouted cups with Ensure. - Continue acetaminophen 650mg Q6h scheduled. Continue trazodone nightly and PRN hydroxyzine. Patient has not required sitter since 06/24. Continue home seizure meds. Continue delirium precautions. Agitation and delirium have resolved. - No indication for IVF. Encourage PO intake. Creatinine and electrolytes wnl - Continue OT/PT therapies - Awaiting precert for SNF. Patient has been denied SNF level of care, peer to peer has been initiated - Maintain O2 sats > 90%. Continue pulmonary toilet, encourage IS. - Completed ancef course for MSSA infected midline subcutaneous hematoma. Wound without signs of erythema or additional drainage. No leukocytosis today. Hematoma appeared to be confined within subcutaneous tissues. No evidence of involving underlying rectus sheath or mesh. - No indication for transfusion. H/H stable. - Continue SCDs and heparin subq for DVT ppx. - Maintain PIVs - No indication for ulcer ppx - No glycemic issues - Continue home meds Dispo: SNF, has acceptance but initial precert denied. Pending a 72 hour review. Medically appropriate for discharge when SNF available. He lives in alf and current wound care/monitored meals is too extensive for his usual alf at this time Extracted from: Title:Progress/SOAP Note Author:Henrry MOELLER, Mary Mehta. Date:07/02/21 1. Small bowel obstruction ( K56.609: Unspecified intestinal obstruction, unspecified as to partial versus complete obstruction) Epilepsy (G40.909: Epilepsy, unspecified, not intractable, without status epilepticus) Potential for deficient knowledge of cerebrovascular accident (CVA) (Z78.9: Other specified health status) Orders: Basic Metabolic Panel CBC w/ Auto Diff 66 y/o male s/p ex lap and hernia repair for recurrent bowel obstructions - Continue regular diet, small bites and sips and fluids via spouted cups with Ensure. - Continue acetaminophen 650mg Q6h scheduled. Continue trazodone nightly and PRN hydroxyzine. Patient has not required sitter since 06/24. Continue home seizure meds. Continue delirium precautions. he has been more alert and minimal issues with agitation in the last couple days - No indication for IVF. Encourage PO intake. - Continue OT/PT therapies - Awaiting precert for SNF. Patient has been denied SNF level of care, peer to peer has been initiated - Maintain O2 sats > 92%. Continue pulmonary toilet, encourage IS. - Continue antibiotic tx for infected hematoma of abdominal wall. Completed course of ancef for MSSA in infected midline hematoma. Will require daily wound dressing/packing changes. Packed with Kerlix and cover with ABD, nursing okay to perform wound changes. Wound confined to superficial tissues. No evidence of deep space or mesh involvement. - No indication for transfusion - Continue SCDs and heparin subq for DVT ppx. - Maintain PIVs - No indication for ulcer ppx - No glycemic issues - Continue home meds - labs in the AM Extracted from: Title:Progress/SOAP Note Author:Henrry MOELLER, Mary Mccollum Date:06/30/21 1. Small bowel obstruction ( K56.609: Unspecified intestinal obstruction, unspecified as to partial versus complete obstruction) Epilepsy (G40.909: Epilepsy, unspecified, not intractable, without status epilepticus) Potential for deficient knowledge of cerebrovascular accident (CVA) (Z78.9: Other specified health status) Orders: cefazolin, 1 gram = 1 EA, Injection, IV Push, q8hr for 2 day(s), Stop date 07/01/21 18:59:00 EDT, Routine, Start date 06/29/21 19:00:00 EDT Creatinine eGFR Extra Lav Tube 66 y/o male s/p ex lap and hernia repair for recurrent bowel obstructions - Regular diet; GLUE MACHINE OPERATOR eval due to concern for aspiration. Transitioned to soft, bite sized food and mildly thickened liquids. Requires additional speech therapy. Having bowel movements. No emesis. - prn pain control meds. Continue trazodone at night and prn hydroxyzine. Pt has not required sitter since 06/24. Continue home seizure meds. Agitation improved, more alert and talkative this morning on my evaluation - HLIV - Continue OT/PT therapies - Awaiting precert for SNF - Maintain O2 sats > 94%. Continue pulmonary toilet, encourage IS. - Continue antibiotic tx for infected hematoma - MSSA, transitioned from vanc/ceftriaxone to ancef, end date 07/02. Continue packing changes with kerlix, appropriate for nursing to perform - No indication for transfusion - Continue SCDs and heparin subq for DVT ppx. - Maintain PIVs - No indication for ulcer ppx - No glycemic issues - Continue home meds [2] Extracted from: Title:Progress/SOAP Note Author:Jesus Manuel Mitchell PA-C Date:06/29/21 1. Small bowel obstruction ( K56.609: Unspecified intestinal obstruction, unspecified as to partial versus complete obstruction) Ordered: Communication Order Physician to Nursing Epilepsy (G40.909: Epilepsy, unspecified, not intractable, without status epilepticus) Potential for deficient knowledge of cerebrovascular accident (CVA) (Z78.9: Other specified health status) Orders: Fluid Culture 66 y/o male s/p ex lap and hernia repair for recurrent bowel obstructions - continue to regular diet with Ensure. - prn pain control meds. Continue trazodone at night and prn hydroxyzine. Pt has not required sitter since 06/24. Continue home seizure meds. Pt agitation likely due to hospital delirium and disruption sleep wake cycles - promote good sleep hygiene. - HLIV - Continue OT/PT therapies - Awaiting precert for SNF - Maintain O2 sats > 94%. Continue pulmonary toilet, encourage IS. - Continue antibiotic tx for infected hematoma of abdominal wall. We will continue ceftriaxone Vanco at this time, plan to narrow antibiotic coverage once susceptibility report is resulted. Will require daily wound dressing/packing changes. Packed with Kerlix and cover with ABD, nursing okay to perform wound changes. - No indication for transfusion - Continue SCDs and heparin subq for DVT ppx. - Maintain PIVs - No indication for ulcer ppx - No glycemic issues - Continue home meds Laney Mitchell PA-C Ext: [phone], available Sunday-Sunday 8am-4pm Trauma Surgery/Surgical Critical Care/Acute Care Surgery *For urgent issues arising after 4PM during the week or on weekends/holiday, please page the trauma/acute care surgery attending qa automation developer. This patient's plan of care was discussed with Trauma/Surgery Floor attending, Dr. Sales Problem List/Past Medical History Ongoing BPH with urinary obstruction Epilepsy Nocturia Post-void dribbling Historical No qualifying data Medications Inpatient ceftriaxone additive + Sodium Chloride 0.9% intravenous solution 50 mL Ensure Enlive Chocolate 237 mL, 237 mL, Oral, BIDWM finasteride 5 mg Tab, 5 mg= 1 tab(s), Oral, Daily heparin 5000 units/mL Inj, 5000 unit(s)= 1 mL, SubCutaneous, q8hrFT hydrOXYzine hydrochloride 25 mg Tab, 25 mg= 1 tab(s), Oral, q6hr, PRN lacosamide 50 mg oral tablet, 150 mg= 3 tab(s), Oral, BID lamotrigine 200 mg Tab, 600 mg= 3 tab(s), Oral, Bedtime lamotrigine 200 mg Tab, 400 mg= 2 tab(s), Oral, Daily latanoprost Opth 0.005% Socorro, 1 drop(s), OPTH, Bedtime levetiracetam 500 mg Tab, 1500 mg= 3 tab(s), Oral, BID meclizine 12.5 mg Tab, 25 mg= 2 tab(s), Oral, TID melatonin 3 mg Tab, 3 mg= 1 tab(s), Oral, Bedtime, PRN primidone 50 mg Tab, 250 mg= 5 tab(s), Oral, Daily primidone 50 mg Tab, 350 mg= 7 tab(s), Oral, Once a day (at bedtime) senna 8.6 mg Tab, 8.6 mg= 1 tab(s), Oral, BID Sodium Chloride 0.9% IV Socorro 250 mL bag, 250 mL, IV, As Directed, PRN tamsulosin 0.4 mg Cap, 0.4 mg= 1 cap(s), Oral, BID traZODONE 50 mg Tab, 50 mg= 1 tab(s), Oral, Bedtime vancomycin + Generic Diluent 250 mL vancomycin IV PHARMACY TO DOSE, PHARMACY TO DOSE, IV, As Directed Zofran 4 mg/2 mL Injection, 4 mg= 2 mL, IV Push, q6hr, PRN Home acetaminophen, 650 mg, Oral, q6hr, PRN cholecalciferol 1000 intl units oral capsule, 1000 International_Unit= 1 cap(s), Oral, Daily Debrox 6.5% otic solution, 5 drop(s) diazepam, 12.5-20mg kit, Rectal, Once finasteride 5 mg Tab, 5 mg= 1 tab(s), Oral, Daily hydrOXYzine hydrochloride 25 mg Tab, 25 mg= 1 tab(s), Oral, QID ibuprofen, PRN lamotrigine 200 mg Tab, See Instructions latanoprost ophthalmic, 0.005 %, Eye-Both, qPM levetiracetam, 1500, Oral, BID loperamide, 1 mg, Oral, QID, PRN loperamide 2 mg Cap, Oral, q4hr LORazepam 0.5 mg Tab, See Instructions, PRN meclizine 25 mg oral tablet, chewable, 25 mg= 1 tab(s), Chewed, TID ondansetron 4 mg Dis Tab, 4 mg= 1 tab(s), Oral, TID, PRN [place], Oral, TID primidone 250 mg Tab, See Instructions tamsulosin 0.4 mg Cap, 0.4 mg= 1 cap(s), Oral, BID Vimpat 150 mg oral tablet, 150 mg= 1 tab(s), Oral, BID Zofran ODT 4 mg Tab-Dis, 4 mg= 1 tab(s), Oral, q8hr Extracted from: Title:Progress/SOAP Note Author:Paula CONSTANTINO, Jesus Manuel Israel Date:06/28/21 1. Small bowel obstruction ( K56.609: Unspecified intestinal obstruction, unspecified as to partial versus complete obstruction) Ordered: Ensure, 237 mL, Liquid, Oral, BIDWM, Routine, Start date 06/28/21 17:00:00 EDT, Over Ice Regular Diet Wound Care Routine Epilepsy (G40.909: Epilepsy, unspecified, not intractable, without status epilepticus) Potential for deficient knowledge of cerebrovascular accident (CVA) (Z78.9: Other specified health status) Orders: Fluid Culture 66 y/o male s/p ex lap and hernia repair for recurrent bowel obstructions - Advance to regualr diet with Ensure. - prn pain control meds. Continue trazodone at night and prn hydroxyzine. Pt has not required sitter since 06/24. Continue home seizure meds. Pt agitation likely due to hospital delerium and disruption sleep wake cycles - promote good sleep hygiene. - HLIV - Continue OT/PT therapies - Awaiting precert for SNF - Maintain O2 sats > 94%. Continue pulmonary toilet, encourage IS. - Continue antibiotic tx for infected hematoma of abdominal wall- Rocephin. Wound culture gram+ cocci - will add vanco. Will require daily wound dressing/packing changes. Packed with Kerlix and cover with ABD, nursing okay for wound changes. - No indication for transfusion - Continue SCDs and heparin subq for DVT ppx. - Maintain PIVs - No indication for ulcer ppx - No glycemic issues - Continue home meds Laney Mitchell PA-C Ext: [phone], available Sunday-Sunday 8am-4pm Trauma Surgery/Surgical Critical Care/Acute Care Surgery *For urgent issues arising after 4PM during the week or on weekends/holiday, please page the trauma/acute care surgery attending qa automation developer. This patient's plan of care was discussed with Trauma/Surgery Floor attending, Dr. Sales Physician Note: I have personally performed a face to face diagnostic evaluation on this patient. I have reviewed and agree with the care plan. Kari Sales MD Trauma Display Coordinator /[facility] Trauma and Emergency General Surgery Extracted from: Title:Progress/SOAP Note Author:Paula CONSTANTINO, Jesus Manuel Israel Date:06/27/21 1. Small bowel obstruction ( K56.609: Unspecified intestinal obstruction, unspecified as to partial versus complete obstruction) Epilepsy (G40.909: Epilepsy, unspecified, not intractable, without status epilepticus) Potential for deficient knowledge of cerebrovascular accident (CVA) (Z78.9: Other specified health status) Orders: Bladder Scan Fluid Culture Straight Cath 66 y/o male s/p ex lap and hernia repair for recurrent bowel obstructions - Advance to full liquid diet with Ensure. - prn pain control meds. Continue trazodone at night and prn hydroxyzine. Pt has not required sitter since 06/24. Continue home seizure meds - mIVF until taking adequate oral intake then NPO. - Continue OT/PT therapies - Awaiting precert for SNF - Maintain O2 sats > 94%. Continue pulmonary toilet, encourage IS. - Will initiate antibiotic therapy today with concern for infected hematoma of abdominal wall- Rocephin. Wound culture pending. Will require daily wound dressing/packing changes. Packed with Kerlix and cover with ABD, nursing okay for wound changes. - No indication for transfusion - Continue SCDs and heparin subq for DVT ppx. - Maintain PIVs - No indication for ulcer ppx - No glycemic issues - Continue home meds Laney Mitchell PA-C Ext: [phone], available Sunday-Sunday 8am-4pm Trauma Surgery/Surgical Critical Care/Acute Care Surgery *For urgent issues arising after 4PM during the week or on weekends/holiday, please page the trauma/acute care surgery attending qa automation developer. This patient's plan of care was discussed with Trauma/Surgery Floor attending, Dr. Sales Extracted from: Title:Progress/SOAP Note Author:Jesus Manuel Mitchell PA-C Date:06/24/21 1. Small bowel obstruction ( K56.609: Unspecified intestinal obstruction, unspecified as to partial versus complete obstruction) Ordered: trazodone, 50 mg = 1 tab(s), Tab, Oral, Bedtime, Routine, Start date 06/23/21 21:00:00 EDT, 06/23/21 13:42:00 EDT Basic Metabolic Panel Basic Metabolic Panel CBC w/ Auto Diff CBC w/ Auto Diff Epilepsy (G40.909: Epilepsy, unspecified, not intractable, without status epilepticus) Potential for deficient knowledge of cerebrovascular accident (CVA) (Z78.9: Other specified health status) Orders: Regular Diet 66 y/o male s/p ex lap and hernia repair for recurrent bowel obstructions. - Will advance to regular diet, administer meals under supervision of sitter or nursing to make sure patient does not eat too fast which may cause vomiting. - Continue trazodone at night and prn hydroxyzine. Pt has not required sitter since this am. - cont home meds. - Continue daily BMP and replete electrolytes as needed. - PT/OT recommending SNF - choices being obtained from sister, pre-cert needed - Remain on RNF Laney Mitchell PA-C Ext: [phone], available Sunday-Sunday 8am-4pm Trauma Surgery/Surgical Critical Care/Acute Care Surgery *For urgent issues arising after 4PM during the week or on weekends/holiday, please page the trauma/acute care surgery attending qa automation developer. This patient's plan of care was discussed with Trauma/Surgery Floor attending, Dr. Pantoja Extracted from: Title:Progress/SOAP Note Author:Jesus Manuel Mitchell PA-C Date:06/23/21 1. Small bowel obstruction ( K56.609: Unspecified intestinal obstruction, unspecified as to partial versus complete obstruction) Ordered: melatonin, 3 mg = 1 tab(s), Tab, Oral, Bedtime PRN Insomnia, Routine, Start date 06/23/21 9:28:00 EDT, 06/23/21 9:28:00 EDT Automated Diff Basic Metabolic Panel CBC w/ Auto Diff eGFR Epilepsy (G40.909: Epilepsy, unspecified, not intractable, without status epilepticus) Potential for deficient knowledge of cerebrovascular accident (CVA) (Z78.9: Other specified health status) Orders: potassium chloride + Generic Diluent 100 mL, 20 mEq = 100 mL, Soln-IV, IV Piggyback, Once, Stop date 06/22/21 17:00:00 EDT, Routine, Start date 06/22/21 17:00:00 EDT, 50 mL/hr, Infuse over 2 hour(s) 66 y/o male s/p ex lap and hernia repair for recurrent bowel obstructions. - Continue on clear liquid diet, administer meals under supervision of sitter or nursing to make sure patient does not eat too fast which may cause vomiting. Continue to await return of bowel function. - Will add trazodone this p.m. to help with sleeping. - cont home meds. - Continue daily BMP and replete electrolytes as needed. - PT/OT recommending SNF - choices being obtained from sister, pre-cert needed - Remain on RNF Laney Mitchell PA-C Ext: [phone], available Sunday-Sunday 8am-4pm Trauma Surgery/Surgical Critical Care/Acute Care Surgery *For urgent issues arising after 4PM during the week or on weekends/holiday, please page the trauma/acute care surgery attending qa automation developer. This patient's plan of care was discussed with Trauma/Surgery Floor attending, Dr. Pantoja Extracted from: Title:Progress/SOAP Note Author:Jesus Manuel Mitchell PA-C Date:06/22/21 1. Small bowel obstruction ( K56.609: Unspecified intestinal obstruction, unspecified as to partial versus complete obstruction) Ordered: Automated Diff Basic Metabolic Panel Basic Metabolic Panel CBC w/ Auto Diff CBC w/ Auto Diff eGFR Epilepsy (G40.909: Epilepsy, unspecified, not intractable, without status epilepticus) Potential for deficient knowledge of cerebrovascular accident (CVA) (Z78.9: Other specified health status) Orders: potassium chloride + Generic Diluent 100 mL, 20 mEq = 100 mL, Soln-IV, IV Piggyback, q2hr for 2 dose(s), Stop date 06/22/21 14:36:00 EDT, Routine, Start date 06/22/21 10:37:00 EDT, 50 mL/hr, Infuse over 2 hour(s) Clear Liquid Diet Drain Removal 66 y/o male s/p ex lap and hernia repair for recurrent bowel obstructions. - Patient with small bowel movement this morning per nursing. Will advance diet to clear liquid diet. Closely monitor. - ELLIS drain consistently with less than 30 cc output, only 12 cc output today. Removed at bedside, patient tolerated well. - cont home meds. holding hydroxyzine at this time but will consider restarting it if pt has any issues with anxiety - PT/OT recommending SNF - choices being obtained from sister, pre-cert needed - Remain on RNF Laney Mitchell PA-C Ext: [phone], available Sunday-Sunday 8am-4pm Trauma Surgery/Surgical Critical Care/Acute Care Surgery *For urgent issues arising after 4PM during the week or on weekends/holiday, please page the trauma/acute care surgery attending qa automation developer. This patient's plan of care was discussed with Trauma/Surgery Floor attending, Dr. Pantoja Extracted from: Title:Progress/SOAP Note Author:Jesus Manuel Mitchell PA-C Date:06/21/21 1. Small bowel obstruction ( K56.609: Unspecified intestinal obstruction, unspecified as to partial versus complete obstruction) Epilepsy (G40.909: Epilepsy, unspecified, not intractable, without status epilepticus) Potential for deficient knowledge of cerebrovascular accident (CVA) (Z78.9: Other specified health status) 66 y/o male s/p ex lap and hernia repair for recurrent bowel obstructions. -Concern for ileus based on clinical picture as well as imaging, will have patient remain n.p.o. today and AROBF. mIVF while npo - cont home meds. holding hydroxyzine at this time but will consider restarting it if pt has any issues with anxiety - PT/OT recommending SNF - choices being obtained from sister, pre-cert needed - Remain on [facility] Laney Mitchell PA-C Ext: [phone], available Sunday-Sunday 8am-4pm Trauma Surgery/Surgical Critical Care/Acute Care Surgery *For urgent issues arising after 4PM during the week or on weekends/holiday, please page the trauma/acute care surgery attending qa automation developer. This patient's plan of care was discussed with Trauma/Surgery Floor attending, Dr. Pantoja Extracted from: Title:Progress/SOAP Note Author:Henrry MOELLER, J acinta Janine. Date:06/19/21 1. Small bowel obstruction ( K56.609: Unspecified intestinal obstruction, unspecified as to partial versus complete obstruction) Epilepsy (G40.909: Epilepsy, unspecified, not intractable, without status epilepticus) Potential for deficient knowledge of cerebrovascular accident (CVA) (Z78.9: Other specified health status) Orders: finasteride, 5 mg = 1 tab(s), Tab, Oral, Daily, Routine, Start date 06/20/21 9:00:00 EDT, 06/19/21 13:21:00 EDT ketorolac, 15 mg = 1 mL, Injection, IV Push, q6hrFT for 5 day(s), Stop date 06/19/21 16:59:00 EDT, Routine, Start date 06/14/21 17:00:00 EDT levetiracetam, 1,500 mg = 3 tab(s), Tab, Oral, BID, Routine, Start date 06/19/21 21:00:00 EDT, 06/19/21 13:22:00 EDT meclizine, 25 mg = 2 tab(s), Tab, Oral, TID, Routine, Start date 06/19/21 14:00:00 EDT, 06/19/21 13:22:00 EDT primidone, 250 mg = 5 tab(s), Tab, Oral, Daily, Routine, Start date 06/20/21 9:00:00 EDT, 06/19/21 13:23:00 EDT primidone, 350 mg = 7 tab(s), Tab, Oral, Once a day (at bedtime), Routine, Start date 06/19/21 21:00:00 EDT, 06/19/21 13:24:00 EDT tamsulosin, 0.4 mg = 1 cap(s), Cap, Oral, BID, Routine, Start date 06/19/21 21:00:00 EDT, 06/19/21 13:26:00 EDT Basic Metabolic Panel Basic Metabolic Panel CBC w/ Auto Diff eGFR Referral to Resource Center Transfer Patient [facility] 66 y/o male s/p ex lap and hernia repair for recurrent bowel obstructions. - COntinue regular diet - IV dilaudid discontinued as patient has not used it in many days - home meds transitioned to PO and remaining home meds ordered - Mild leukocytosis today- will trend, may need to take down prevena wound vac tomorrow if increasing. No increasing oxygen requirements. will removed yesterday. no acute indication for antibiotics - PT/OT recommending SNF - choices being obtained from sister, pre-cert needed - May transfer to [facility] with telemetry Extracted from: Title:Progress/SOAP Note Author:Mary Sales MD. Date:06/18/21 1. Small bowel obstruction ( K56.609: Unspecified intestinal obstruction, unspecified as to partial versus complete obstruction) Epilepsy (G40.909: Epilepsy, unspecified, not intractable, without status epilepticus) Potential for deficient knowledge of cerebrovascular accident (CVA) (Z78.9: Other specified health status) Orders: Automated Diff Basic Metabolic Panel CBC w/ Auto Diff eGFR Regular Diet 66 y/o male s/p hernia repair on 06/14/2021. - Advance to regular diet - D/C will today - heparin subQ for DVT prophylaxis - monitor urine output post will removal - PT/OT recommending rehab Extracted from: Title:Progress/SOAP Note Author:Mary Sales MD. Date:06/17/21 1. Small bowel obstruction ( K56.609: Unspecified intestinal obstruction, unspecified as to partial versus complete obstruction) Epilepsy (G40.909: Epilepsy, unspecified, not intractable, without status epilepticus) Potential for deficient knowledge of cerebrovascular accident (CVA) (Z78.9: Other specified health status) Orders: potassium chloride + Generic Diluent 100 mL, 20 mEq = 100 mL, Soln-IV, IV Piggyback, q2hr for 2 dose(s), Stop date 06/16/21 18:32:00 EDT, Routine, Start date 06/16/21 14:33:00 EDT, 50 mL/hr, Infuse over 2 hour(s) Basic Metabolic Panel Change End Caps Communication Order Physician to Nursing Communication Order Physician to Nursing Communication Order Physician to Nursing Communication Order Physician to Nursing Communication Order Physician to Nursing Dressing Care/Change eGFR Full Liquid Diet 66 y/o male s/p hernia repair on 06/14/2021 - Advance to full liquid diet today - continue will to monitor unrine output - PT/OT - pain control with tylenol and toradol - encourage pulmonary toilet - abdominal binder for comfort and to keep drains/wound vac in place - discontinue cefepime as urine culture is just staph epidermidis, no signs of pneumonia, no leukocytosis, no further fevers - continue to closely monitor. Extracted from: Title:Progress/SOAP Note Author:Paula CONSTANTINO, Jesus Manuel Israel Date:06/15/21 1. Small bowel obstruction ( K56.609: Unspecified intestinal obstruction, unspecified as to partial versus complete obstruction) Ordered: Automated Diff Basic Metabolic Panel CBC w/ Auto Diff eGFR Epilepsy (G40.909: Epilepsy, unspecified, not intractable, without status epilepticus) Potential for deficient knowledge of cerebrovascular accident (CVA) (Z78.9: Other specified health status) 66 yo M s/p retrorectus incisional hernia repair, exploratory laparotomy, lysis of adhesions, scar revision - NPO, NG tube LIWS - IV tylenol and ketorolac, prn dilaudid - D5Lr 125cc/hr - Continue OT/PT therapies. - Maintain O2 sats > 94 %. Continue pulmonary toilet, encourage IS/fluttervalve - Cefepime for ?UTI and fever - No indication for transfusion - Continue SCDs and subq heparin for DVT ppx. - Maintain PIVs , will, ELLIS - No acute cardiac issues - No indication for ulcer ppx - No glycemic issues - okay for seizure meds through NG - Remain in ICU for close monitoring and high risk decompensation Laney Mitchell PA-C Ext: [phone], available Sunday-Sunday 8am-4pm Trauma Surgery/Surgical Critical Care/Acute Care Surgery *For urgent issues arising after 4PM during the week or on weekends/holiday, please page the trauma/acute care surgery attending qa automation developer. This patient's plan of care was discussed with Trauma/Surgery Floor attending, Dr. Sales Physician Note: I have personally performed a face to face diagnostic evaluation on this patient. I have reviewed and agree with the care plan. Kari Sales MD Trauma Display Coordinator /[facility] Trauma and Emergency General Surgery Extracted from: Title:Post-anesthesia - General Author:Alvaro Last DO Date:06/14/21 Plan Transfer/ Discharge: Condition stable. Extracted from: Title:Pre-anesthesia - Adult Author:Alvaro Blanco Jr., DO Date:06/14/21 Plan [place] [employer] (ASA) physical status classification: Class III. Anesthetic Preoperative Plan Anesthesia: General. . Anesthetic plan, risks, benefits, and alternatives discussed with the patient and/or family. Patient verbalized understanding. Adverse reactions, complications, and alternatives discujssed. Consent signed and on chart.. Extracted from: Title:Progress/SOAP Note Author:Jesus Manuel Mitchell PA-C Date:06/13/21 1. Small bowel obstruction ( K56.609: Unspecified intestinal obstruction, unspecified as to partial versus complete obstruction) Incisional hernia Small bowel obstruction Imaging reviewed, consistent with chronic small bowel obstruction Patient denies pain at this time but does grimace with palpation of the abdomen at the site of the hernia. NG tube to remain to low intermittent suction LR at 120 cc an hour. Heparin 3 times daily 5000 units subcu for DVT prophylaxis. Will plan for exploratory laparotomy for lysis of adhesions and hernia repair in the setting of failed outpatient therapy and recurrent admissions over the past year - likely tomorrow am (06/14/21) Laney Mitchell PA-C Ext: [phone], available Sunday-Sunday 8am-4pm Trauma Surgery/Surgical Critical Care/Acute Care Surgery *For urgent issues arising after 4PM during the week or on weekends/holiday, please page the trauma/acute care surgery attending qa automation developer. This patient's plan of care was discussed with Trauma/Surgery Floor attending, Dr. Sales Extracted from: Title:Progress/SOAP Note Author:Loly Rivera DO Date:06/12/21 Small bowel obstruction, inc isional hernia Seizure disorder BPH Maintain NG tube to low continuous suction. Patient with recurrent SBO and admissions over the past 6 months. Discussed care and plan with mom and patients need for exploratory surgery due to chronic obstruction from adhesions. Will tentatively plan for exploratory laparotomy tomorrow afternoon pending OR schedule Continue LR at 100 cc/hr Continue IV keppra 1500 BID as this is home conversion. Unable to give home vimpat as IV form is not on formulary. Unable to give Lamotragine in setting of SBO. Will resume both when able to tolerate PO. PRN Ativan for seizures. Heparin TID for DVT prophylaxis Extracted from: Title:Admission H & P Author:Melchor Rivera DO Date:06/11/21 Incisional hernia Small bowel obstruction Morbid the patient for NG tube decompression as well as likely exploratory laparotomy for lysis of adhesions and hernia repair in the setting of failed outpatient therapy and recurrent admissions over the past year. We will obtain a CT abdomen pelvis with IV contrast due to patient's elevated lactate at [place] which has improved upon this presentation. He does have a notable white blood cell count of 15. We will ensure he has no signs of ischemia due to his poor ability to communicate pain during physical exam. I have low concern for acute ischemia to the patient's vital signs improved with a lactate as well as physical exam findings. LR at 120 cc an hour. NG tube to low continuous wall suction Heparin 3 times daily 5000 units subcu for DVT prophylaxis. Extracted from: Title:ED Note Author:Venkat CONSTANTINO, Mendoza Amaya te:06/11/21 1. Small bowel obstruction ( K56.609: Unspecified intestinal obstruction, unspecified as to partial versus complete obstruction) Orders: Sodium Chloride 0.9% intravenous solution 1,000 mL, 1,000 mL, IV, 125 mL/hr, STAT, Start date 06/11/21 15:48:00 EDT, 8 hour(s), Total volume (mL): 1,000, 90 kg, 2.04, m2 Basic Metabolic Panel Blood Culture Charcoal Blood Culture Charcoal CBC w/ Auto Diff Hepatic Function Panel Lactic Acid Lipase Level Place in Status Future Appointments Appointment Date:02/13/2022 10:30:00 AM Scheduled Provider:Yasmani CAMARA MD Location:[facility] Appointment Type:URO Office Visit Future Scheduled Tests Laboratory* Basic Metabolic Panel 06/24/21 * Basic Metabolic Panel 06/24/21 * CBC w/ Auto Diff 06/24/21 * CBC w/ Auto Diff 06/24/21 [facility]08-17-2014 Evaluation note* Diagnosis Small bowel obstruction (HCC) / Operation 10-19-2013- Primary Unspecified intestinal obstruction Small bowel obstruction (HCC) Unspecified intestinal obstruction Acute kidney injury (HCC) Acute kidney failure, unspecified History of seizure disorder Personal history of other disorders of nervous system and sense organs Seizures (HCC) Chronic Other convulsions MR (mental retardation), severe Severe intellectual disabilities documented in this encounter [employer] Phone: evaluation + Plan note Future Appointments Appointment Date:02/13/2022 10:30:00 AM Scheduled Provider:Yasmani CAMARA MD Location:[facility] Appointment Type:[facility]O [facility] Future Appointments Appointment Date:07/15/2021 09:30:00 AM Scheduled [facility] Type:Trauma Initial Follow Up (FT) Appointment Date:02/13/2022 10:30:00 AM Scheduled Provider:Yasmani CAMARA MD Location:[facility] Appointment Type:URO Office Visit Future Scheduled Tests Laboratory* Basic Metabolic Panel 06/24/21 * Basic Metabolic Panel 06/24/21 * CBC w/ Auto Diff 06/24/21 * CBC w/ Auto Diff [facility]/24/21 [facility] Future Appointments Appointment Date:07/29/2021 09:45:00 AM Scheduled [facility] Type:Trauma Initial Follow Up (FT) Appointment Date:02/13/2022 10:30:00 AM Scheduled Provider:Yasmani CAMARA MD Location:[facility] Appointment Type:URO Office Visit Future Scheduled Tests Laboratory* Basic Metabolic Panel 06/24/21 * Basic Metabolic Panel 06/24/21 * CBC w/ Auto Diff 06/24/21 * CBC w/ Auto Diff 06/24/21 [facility] Appointments Appointment Date:08/12/2021 10:00:00 AM Scheduled [facility]:Trauma Initial Follow Up (FT) Appointment Date:02/13/2022 10:30:00 AM Scheduled Provider:Yasmani CAMARA MD Location:[facility] Appointment Type:URO Office Visit Future Scheduled Tests Laboratory* Basic Metabolic Panel 06/24/21 * Basic Metabolic Panel 06/24/21 * CBC w/ Auto Diff 06/24/21 * CBC w/ Auto Diff 06/24/21 [facility] Appointments Appointment Date:09/01/2021 10:00:00 AM Scheduled Provider[facility]:Trauma Initial Follow Up (FT) Appointment Date:02/13/2022 10:30:00 AM Scheduled Provider:Yasmani CAMARA MD Location:[facility] Appointment Type:URO Office Visit Future Scheduled Tests Laboratory* Basic Metabolic Panel 06/24/21 * Basic Metabolic Panel 06/24/21 * CBC w/ Auto Diff 06/24/21 * CBC w/ Auto Diff 06/24/21 [facility] + Plan note Future Appointments Appointment Date:02/13/2022 10:30:00 AM Scheduled Provider:Yasmani CAMARA MD Location:[facility] Appointment Type:URO Office Visit Future Scheduled Tests Laboratory* Basic Metabolic Panel 06/24/21 * Basic Metabolic Panel 06/24/21 * CBC w/ Auto Diff 06/24/21 * CBC w/ Auto Diff 06/24/21 [facility] note* Diagnosis Seizure (HCC)- Primary Other convulsions documented in this encounter [employer] Phone: evaluation note* Diagnosis SBO (small bowel obstruction) (HCC)- Primary Unspecified intestinal obstruction SBO (small bowel obstruction) (HCC) Unspecified intestinal obstruction Moderate malnutrition (HCC) Malnutrition of moderate degree documented in this encounter [employer] Phone: evaluation note* Diagnosis SBO (small bowel obstruction) (HCC)- Primary Unspecified intestinal obstruction Small bowel obstruction (HCC) Unspecified intestinal obstruction Epilepsy (HCC) 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 of intractable epilepsy Moderate malnutrition (HCC) Malnutrition of moderate degree MR (mental retardation), severe Severe intellectual disabilities Seizures (HCC) Chronic Other convulsions Small bowel obstruction (HCC) Unspecified intestinal obstruction Mild malnutrition (HCC) Malnutrition of mild degree documented in this encounter [employer] note* Diagnosis SBO (small bowel obstruction) (CMS-HCC)- Primary Unspecified intestinal obstruction SBO (small bowel obstruction) (CMS-HCC) Unspecified intestinal obstruction Seizure disorder (CMS-HCC) 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 of intractable epilepsy [facility] Narrative No data available for this section [facility] No data available for this section [facility] Attachments The following attachments cannot be sent through Care Everywhere. * Seizure (Khmer) documented in this encounterBON Shineon Work Phone: Hospital Discharge instructionsNot on filedocumented in this [facility]Bar[facility] SystemProgress note No data available for this section [facility] Summary Purpose Family History No Family History Records FoundNo Family History Records FoundNo Family History Records FoundNo Family History Records FoundNo Family History Records FoundNo Family History Records FoundNo Family History Records FoundNo Family History Records FoundNo Family History Records FoundNo Family History Records Found Advance Directives No Advanced Directives Records FoundDocuments on File Type Date Recorded Patient Line Person Expl anation Advance Directives and Living Will Power of Turf Manager Latest Code Status on File Code Status Date Activated Date Inactivated Comments Full Code 12/14/2015 1:45 PM 12/15/2015 2:04 PM Full Code 10/17/2013 11:29 PM 11/06/2013 2:52 PM Documents on File Type Date Recorded Patient Line Person Expl anation ACP-Advance Directive ACP-Power of Turf Manager Documents on File Type Date Recorded Patient Line Person Expl anation ACP-Advance Directive 05/09/2022 2:31 PM Le tter of Guardianship Latest Code Status on File Code Status Date Activated Date Inactivated Comments Full Code 05/09/2022 3:18 AM Full Code 12/14/2015 1:45 PM 12/15/2015 2:04 PM Healthcare Agents on File Name Relationship Healthcare Agent Relationshi p Communication Susan Smith Legal Guardian Primary Decision [facility] er Latest Code Status on File Code Status Date Activated Date Inactivated Comments Full Code 06/21/2022 5:10 PM Code Status History Code Status Date Activated Date Inactivated Comments Full Code 06/12/2022 3:24 PM 06/15/2022 4:18 PM Full Code 05/09/2022 3:18 AM 05/12/2022 9:00 PM Full Code 12/14/2015 1:45 PM 12/15/2015 2:04 PM Full Code 10/17/2013 11:29 PM 11/06/2013 2:52 PM Healthcare Agents on File Name Relationship Healthcare Agent Relationshi p Communication Susan Smith Legal Guardian Primary Decision [facility] er Latest Code Status on File Code Status Date Activated Date Inactivated Comments Full Code 09/02/2022 11:14 PM Code Status History Code Status Date Activated Date Inactivated Comments Full Code 06/21/2022 5:10 PM 06/24/2022 2:55 AM Full Code 06/12/2022 3:24 PM 06/15/2022 4:18 PM Full Code 05/09/2022 3:18 AM 05/12/2022 9:00 PM Full Code 12/14/2015 1:45 PM 12/15/2015 2:04 PM Healthcare Agents on File Name Relationship Healthcare Agent Relationshi p Communication Susan Smith Legal Guardian Primary Decision [facility] er Documents on File Type Date Recorded Patient Line Person Expl anation Advance Directive 02/14/2017 3:25 PM [facility] 01/01/2015 Latest Code Status on File Code Status Date Activated Date Inactivated Comments Full Code 04/09/2023 2:15 PM 04/20/2023 1:43 PM Hospital Course Note HNO ID: [id number] Author: Quin Saucedo Service: Hospital Medicine Author Type: Physician Type: Discharge Summary Filed: 11/29/2018 2:16 PM Note Text: DISCHARGE SUMMARY PATIENT NAME: Amol Taylor ADMISSION DATE: 11/22/2018 DISCHARGE DATE: 11/29/2018 Attending Physician: Debby Saucedo Code Status: Not on file Highest Readmission Risk Score: 15 The 30 day readmissions risk score is derived from an internally validated risk model which evaluates patient level characteristics, utilization history, medication orders and lab results up until the day of discharge. Patients with a score of 40 or above are considered highest risk for readmission. Specific patient level drivers will be listed at the bottom of the summary. Reason for Hospitalization: Small bowel obstruction Diagnosis: Principal Problem: Small bowel obstruction due to adhesions (HCC) Active Problems: Urinary retention Seizure (HCC) Severe intellectual disability Resolved Problems: * No resolved hospital pro (more content not included)... Reason for Referral Specialty Diagnoses / Procedures Referred By Perla monteiro Referred To Contact Procedures Discharge Follow-Up Edilma Eastman MD [address] [address] Referral ID Status Reason Start Date Expiration Date V isits Requested Visits Authorized [id number] Pending Review 04/19/2023 04/18/2024 1 1 Specialty Diagnoses / Procedures Referred By Contac t Referred To Contact Diagnoses SBO (small bowel obstruction) ([facility]) Procedures Follow-up with primary care provider Edilma Eastman MD [address] [place] [address] Referral ID Status Reason Start Date Expiration Date V isits Requested Visits Authorized [id number] Pending Review 04/19/2023 04/18/2024 1 1 Specialty Diagnoses / Procedures Referred By Contliam t Referred To Contact Procedures Adult diet Edilma Eastman MD [address] [place] [address] Referral ID Status Reason Start Date Expiration Date V isits Requested Visits Authorized [id number] Pending Review 04/19/2023 04/18/2024 1 1 Additional Source Comments (unrecognized sect ion and content) No Status Records FoundNo Status Records FoundNo Status Records FoundNo Status Records FoundNo Status Records FoundNo Status Records FoundNo Status Records FoundNo Status Records FoundNo Status Records FoundNo Status Records Found INFORMATION SOURCE (unrecogn ized section and content) DATE CREATED AUTHOR 08/29/2017 [facility] DATE CREATED AUTHOR AUTHOR'S ORGANIZ ATION 08/29/2017 [facility] DATE CREATED AUTHOR AUTHOR'S ORGANIZ ATION 12/08/2018 [facility] DATE CREATED AUTHOR AUTHOR'S ORGANIZ ATION 10/08/2021 [facility] DATE CREATED AUTHOR AUTHOR'S ORGANIZ ATION 02/17/2023 [facility] DATE CREATED AUTHOR AUTHOR'S ORGANIZ ATION 02/18/2023 [facility] DATE CREATED AUTHOR AUTHOR'S ORGANIZ ATION 03/17/2023 [facility] DATE CREATED AUTHOR AUTHOR'S ORGANIZ ATION 03/22/2023 [facility] DATE CREATED AUTHOR AUTHOR'S ORGANIZ ATION 04/09/2023 [facility] DATE CREATED AUTHOR AUTHOR'S ORGANIZ ATION 04/23/2023 [facility] Care Teams (unrecognized sec tion and content) Material Crew Supervisor Relationship Specialty Start Date End Date Bryonfrank Kevin Hernandez, DO [address] [place] [address] [place] [address] PCP - General Internal Medicine 05/17/17 Material Crew Supervisor Relationship Specialty Start Date End Date Bryonfrank Kevin Hernandez, DO [address] [place] [address] [place] [address] PCP - General Internal Medicine 05/17/17 Material Crew Supervisor Relationship Specialty Start Date End Date Kevin Robles DO [address] [place] [address] [place] [address] PCP - General Internal Medicine 05/17/17 Material Crew Supervisor Relationship Specialty Start Date End Date Kevin Robles DO [address] [place] [address] [place] [address] PCP - General Internal Medicine 05/17/17 Material Crew Supervisor Relationship Specialty Start Date End Date Kevin Robles DO [address] [place] [address] [place] [address] PCP - General Internal Medicine 05/17/17 Material Crew Supervisor Relationship Specialty Start Date End Date Kevin Robles DO [address] [place] [address] [place] [address] PCP - General Internal Medicine 05/17/17 Material Crew Supervisor Relationship Specialty Start Date End Date Kevin Robles DO [address] [place] [address] [place] [address] PCP - General Internal Medicine 05/17/17 Material Crew Supervisor Relationship Specialty Start Date End Date Carson Matamoros MD [address] [place] [address] PCP - General Family Medicine 05/12/22 Material Crew Supervisor Relationship Specialty Start Date End Date Carson Matamoros MD [address] [place] [address] PCP - General Family Medicine 05/12/22 Material Crew Supervisor Relationship Specialty Start Date End Date Carson Matamoros MD [address] [place] [address] PCP - General Family Medicine 05/12/22 Material Crew Supervisor Relationship Specialty Start Date End Date Carson Matamoros MD [address] [place] [address] PCP - General Family Medicine 04/07/23 Reason for Visit (unrecogniz ed section and content) Reason Comments Seizures per EMS seizure last ed about 5 minutes, patient does not remember what occurred Reason Comments Emesis From [facility], c/o vomiting x4 denies abdominal pain Specialty Diagnoses / Procedures Referred By Contac t Referred To Contact Diagnoses Small bowel obstruction (HCC) History of seizure disorder Acute kidney injury (HCC) Becca Patel MD [address] [place] [address] [facility] [address] [place] [address] Referral ID Status Reason Start Date Expiration Date Visits Re quested Visits Authorized [id number] 1 1 Reason Comments Emesis Concern for bowel ob struction, had one one week ago, vomited foul smelling emesis this morning Specialty Diagnoses / Procedures Referred By Contac t Referred To Contact Diagnoses SBO (small bowel obstruction) (HCC) Jose Chacon MD [address] [place] [address] [facility] [address] [place] [address] Referral ID Status Reason Start Date Expiration Date Visits Re quested Visits Authorized [id number] 1 1 Reason Comments Other Pt was sent by SNF f or possible bowel obstruction. Pt has no complaints Specialty Diagnoses / Procedures Referred By Contac t Referred To Contact Diagnoses Small bowel obstruction (HCC) SBO (small bowel obstruction) ([facility]) Lyla Zepeda MD [address] [place] [address] [facility] [address] [place] [address] Referral ID Status Reason Start Date Expiration Date Visits Re quested Visits Authorized [id number] 1 1 Reason Comments Vomiting Specialty Diagnoses / Procedures Referred By Contac t Referred To Contact Diagnoses SBO (small bowel obstruction) ([facility]) Seizure disorder ([facility]) Nazia Broussard MD [address] [place] [address] Referral ID Status Reason Start Date Expiration Date Visits Re quested Visits Authorized [id number] 1 1 Ordered Prescriptions (unrec ognized section and content) Prescription Sig Dispensed Refills Start Date End Da te polyethylene glycol (GLYCOLAX) 17 g packet Take 17 g by mouth daily 527 g 1 05/13/2022 06/12/2022 Prescription Sig Dispensed Refills Start Date End Da te erythromycin (EES) 200 MG/5ML suspension Take 5 mLs by mouth 3 times daily for 10 days Give with Breakfast, Dinner, and Bedtime 150 mL 0 09/07/2022 09/17/2022 pantoprazole (PROTONIX) 40 MG tablet Take 1 tablet by mouth every morning (before breakfast) 90 tablet 1 09/07/2022 erythromycin (EES) 200 MG/5ML suspension Take 5 mLs by mouth 4 times daily (with meals and nightly) for 10 days 200 mL 0 09/07/2022 09/07/2022 Scheduled Active and Recently Administ ered Medications (unrecognized section and content) Medication Order 05/10/2022 05/11/2022 05/12/2022 enoxaparin (LOVENOX) injection 40 mg 40 mg, SubCUTAneous, DAILY, First dose on Sun05/09/22 at 0900, Until Discontinued, Indication of Use: Prophylaxis-DVT/PE, Administer by deep subCUTAneous injection with pt lying down. Alternate injection sites on abdominal wall. Do not rub site after injection. Check with provider prior to any invasive procedure. 0916 (Given - Provider: Kathy Ospina) 0941 (Given - Provider: Cydney Coffey, ARA) 0954 (Given - Provider: Gayatri Yates) lacosamide (VIMPAT) 150 mg in sodium chloride 0.9 % 65 mL IVPB (CANCELED) 150 mg, IntraVENous, at 130 mL/hr, Administer over 30 Minutes, 2 TIMES DAILY, First dose (after last modification) on Sun05/09/22 at 1430 0941 (New Bag - Provider: Lisa Pastrana RN)1047 (Stopped - Provider: Kathy Ospina)2138 (New Bag - Provider: Whitney Freed RN - Comment: Medication mixed and wasted with ARA Brooke.)2208 (Stopped - Provider: Whitney Freed RN) 0952 (New Bag - Provider: Cydney Coffey RN)1044 (Stopped - Provider: Kathy Ospina)2340 (New Bag - Provider: Keyanna Friend RN) 0010 (Stopped - Provider: Keyanna Friend RN)1041 (Not Given - Provider: Yolanda Pope RN - Reason: Loss of IV access) lacosamide (VIMPAT) tablet 150 mg 150 mg, Oral, 2 TIMES DAILY, First dose on Sun05/12/22 at 1100, Until Discontinued, Swallow tablets whole; do not crush, split, or chew. 1140 (Given - Provider: Gayatri Yates)2100 (Due) levETIRAcetam (KEPPRA) 1,500 mg in sodium chloride 0.9 % 100 mL IVPB (CANCELED) 1,500 mg, IntraVENous, EVERY 12 HOURS, First dose on Sun05/09/22 at 1000, Until Discontinued 1047 (New Bag - Provider: Kathy Ospina)1149 (Stopped - Provider: Kathy Bhavesh)2233 (New Bag - Provider: Whitney Freed RN)2248 (Stopped - Provider: Whitney Freed RN) 1049 (New Bag - Provider: Cydney Coffey RN)1104 (Stopped - Provider: Cydney Coffey RN)2222 (New Bag - Provider: Keyanna Friend, RN)2237 (Stopped - Provider: Keyanna Friend RN) 0959 (New Bag - Provider: Gayatri Yates)1000 (Stopped - Provider: Yolanda Pope RN - Comment: see nurses note.)1041 (Not Given - Provider: Yolanda Pope RN - Reason: Loss of IV access) levETIRAcetam (KEPPRA) 100 MG/ML solution 1,500 mg 1,500 mg, Oral, 2 TIMES DAILY, First dose on Sun05/12/22 at 1100, Until Discontinued 1139 (Given - Provider: Gayatri Yates)2100 (Due) pantoprazole (PROTONIX) 40 mg in sodium chloride (PF) 0.9 % 10 mL injection 40 mg, IntraVENous, DAILY, First dose on Sun05/09/22 at 1130, Reconstitute with 10 mL 0.9 % sodium chloride and administer over at least 2 minutes. 0916 (Given - Provider: Kathy Ospina) 0941 (Given - Provider: Cydney Coffey RN) 0954 (Given - Provider: Gayatri Yates) polyethylene glycol (GLYCOLAX) packet 17 g 17 g, Oral, DAILY, First dose on Sun05/12/22 at 0900, Until Discontinued, Stir and dissolve one packet of powder (17 g) in any 4 to 8 ounces of beverage (cold, hot or room temperature) then drink 0954 (Given - Provider: Gayatri Yates) senna (SENOKOT) tablet 8.6 mg 8.6 mg (1 tablet), Oral, 2 TIMES DAILY, First dose on Sun05/12/22 at 0900, Until Discontinued 0954 (Given - Provider: Gayatri Yates)2100 (Due) sodium chloride flush 0.9 % injection 5-40 mL 5-40 mL, IntraVENous, EVERY 12 HOURS SCHEDULED (2 times per day), First dose on Sun05/09/22 at 0900, Until Discontinued, For Line Patency: Peripheral IV = 5 mL; Midline or Central Line = 10 mL/lumen. If following IV push medication, administer flush at same rate as the IV push. Flush volume is determined by type of infusion therapy being given. For non-viscous solutions use: Peripheral IV = 5 mL Midline or Central Line = 10 mL/lumen For viscous solutions (i.e. blood components, parenteral nutrition, contrast media, or after obtaining blood sample) use: Peripheral IV = 10 mL Midline or Central Line = 20 mL/lumen 0904 (Not Given - Provider: Kathy Ospina - Reason: IV Fluid Infusing)2200 (Not Given - Provider: Whitney Freed RN - Reason: IV Fluid Infusing) 0946 (Given - Provider: Cydney Coffey RN)2050 (Not Given - Provider: Keyanna Friend RN - Reason: IV Fluid Infusing) 0957 (Given - Provider: Gayatri Yates)2100 (Due) Continuous Medication Order 05/10/2022 05/11/2022 05/12/2022 lactated ringers IV soln infusion (CANCELED) IntraVENous, at 75 mL/hr, CONTINUOUS, Starting on Sun05/09/22 at 0345 0434 (New Bag - Provider: Keyanna Friend RN)0904 (Rate/Dose Change - Provider: Kathy Ospina)1454 (New Bag - Provider: Kathy Ospina) 0513 (New Bag - Provider: Kathy Llamas, ARA)1717 (New Bag - Provider: Cydney Coffey, ARA) 0738 (Stopped - Provider: Yolanda Pope RN) PRN Medication Order 05/10/2022 05/11/2022 05/12/2022 0.9 % sodium chloride infusion IntraVENous, at 5-250 mL/hr, PRN, if patient receiving piggyback infusions and maintenance fluids are not ordered OR KVO fluids to protect IV site / prevent frequent line interruptions/ long duration, Starting on Sun05/09/22 at 0308, For piggyback infusion, administer at same rate as piggyback for a total of 25 mL. Enter 25 mL into dose field and piggyback rate into rate field of order. If piggyback is infusing at a rate less than 100 mL/hr, enter 25 mL into dose field and 100 mL/hr into rate field of order. For KVO fluids, enter rate of 20 mL/hr or less into rate field of order. diatrizoate meglumine-sodium (GASTROGRAFIN) 66-10 % solution 90 mL 90 mL, Per NG tube, IMG ONCE PRN, Starting on Vilma 05/11/22 at 1216, Until Discontinued, Other 1216 (Given - Provider: Leilani Cross) ketorolac (TORADOL) injection 15 mg 15 mg, IntraVENous, EVERY 6 HOURS PRN, Starting on Sun05/09/22 at 0316, Until 05/14/22 at 0415, Pain Mild (1-3), Pain Moderate (4-6), Pain Severe (7-10), Do not administer for more than 5 days. ondansetron (ZOFRAN) injection 4 mg(Linked Group 1) 4 mg, IntraVENous, EVERY 6 HOURS PRN, Starting on Sun05/09/22 at 0308, Until Discontinued, Nausea, Vomiting, Administer if oral route cannot be used. ondansetron (ZOFRAN-ODT) disintegrating tablet 4 mg(Linked Group 1) 4 mg, Oral, EVERY 8 HOURS PRN, Starting on Sun05/09/22 at 0308, Until Discontinued, Nausea, Vomiting potassium bicarb-citric acid (EFFER-K) effervescent tablet 40 mEq(Linked Group 2) 40 mEq, Oral, PRN, Starting on Sun05/09/22 at 0308, Until Discontinued, Per Potassium Replacement Protocol, Administer as alternative if patient unable to tolerate oral tablet. K Lab Replacement Action 3.1 to 3.5 40 mEq ORAL x 1 Under 3.1 Refer to IV replacement protocol Recheck K level in AM. Protocol not for use in patients with CrCl less than 30 mL/min. Do not chew or crush. Dissolve flavored tablets completely in 3 to 4 ounces of cold water; unflavored tablets may be dissolved in 3 to 4 ounces of cold juice. Patient to sip slowly over a 5 to 10 minute period. May further dilute if GI adverse effects occur. potassium chloride (KLOR-CON M) extended release tablet 40 mEq(Linked Group 2) 40 mEq, Oral, PRN, Starting on Sun05/09/22 at 0308, Until Discontinued, Potassium Replacement, May give alternative linked oral order (ordered as effervescent, packet, or liquid solution) if patient unable to tolerate tablet. K Lab Replacement Action 3.1 to 3.5 40 mEq ORAL x 1 Under 3.1 Refer to IV replacement protocol Recheck K level in AM. Protocol not for use in patients with CrCl less than 30 mL/min. potassium chloride 10 mEq/100 mL IVPB (Peripheral Line)(Linked Group 2) 10 mEq, IntraVENous, PRN, Starting on Sun05/09/22 at 0308, Until Discontinued, at 100 mL/hr, Potassium Replacement, K Lab Replacement Action 2.7 to 3.0 10 mEq IVPB x 6 doses (60 mEq Total) Under 2.7 CALL PROVIDER and administer 10 mEq IVPB x 6 doses (60 mEq Total) Infuse at 10 mEq/hr. Repeat Potassium lab 1 hour after final administration. Protocol not for use in patients with CrCl less than 30 mL/min. sodium chloride flush 0.9 % injection 5-40 mL 5-40 mL, IntraVENous, PRN, Starting on Sun05/09/22 at 0308, Until Discontinued, Line Care, After every IV line use, For Line Patency: Peripheral IV = 5 mL; Midline or Central Line = 10 mL/lumen. If following IV push medication, administer flush at same rate as the IV push. Flush volume is determined by type of infusion therapy being given. For non-viscous solutions use: Peripheral IV = 5 mL Midline or Central Line = 10 mL/lumen For viscous solutions (i.e. blood components, parenteral nutrition, contrast media, or after obtaining blood sample) use: Peripheral IV = 10 mL Midline or Central Line = 20 mL/lumen Linked Groups Order Group 1: ondansetron (ZOFRAN-ODT) disintegrating tablet 4 mgJump to med 4 mg, Oral, EVERY 8 HOURS PRN, Starting on Sun05/09/22 at 0308, Until Discontinued, Nausea, Vomiting Or ondansetron (ZOFRAN) injection 4 mgJump to med 4 mg, IntraVENous, EVERY 6 HOURS PRN, Starting on Sun05/09/22 at 0308, Until Discontinued, Nausea, Vomiting
Administer if oral route cannot be used.
Group 2: potassium chloride (KLOR-CON M) extended release tablet 40 mEqJump to med 40 mEq, Oral, PRN, Starting on Sun05/09/22 at 0308, Until Discontinued, Potassium Replacement
May give alternative linked oral order (ordered as effervescent, packet, or liquid solution) if patient unable to tolerate tablet. K Lab Repla cemen t Action 3.1 to 3.5 40 mEq ORAL x 1 Under 3.1 Refer to IV replacement protocol Recheck K level in AM. Protocol not for use in patients with CrCl less than 30 mL/min.
Or potassium bicarb-citric acid (EFFER-K) effervescent tablet 40 mEqJump to med 40 mEq, Oral, PRN, Starting on Sun05/09/22 at 0308, Until Discontinued, Per Potassium Replacement Protocol
Administer as alternative if patient unable to tolerate oral tablet. K Lab Repla cemen t Action 3.1 to 3.5 40 mEq ORAL x 1 Under 3.1 Refer to IV replacement protocol Recheck K level in AM. Protocol not for use in patients with CrCl less than 30 mL/min. Do not chew or crush. Dissolve flavored tablets completely in 3 to 4 ounces of cold water; unflavored tablets may be dissolved in 3 to 4 ounces of cold juice. Patient to sip slowly over a 5 to 10 minute period. May further dilute if GI adverse effects occur.
Or potassium chloride 10 mEq/100 mL IVPB (Peripheral Line)Jump to med 10 mEq, IntraVENous, PRN, Starting on Sun05/09/22 at 0308, Until Discontinued, at 100 mL/hr, Potassium Replacement
K Lab Replacement Action 2.7 to 3.0 10 mEq IVPB x 6 doses (60 mEq Total) Under 2.7 CALL PROVIDER and administer 10 mEq IVPB x 6 doses (60 mEq Total) Infuse at 10 mEq/hr. Repeat Potassium lab 1 hour after final administration. Protocol not for use in patients with CrCl less than 30 mL/min.
Scheduled Medication Order 06/22/2022 06/23/2022 06/24/2022 0.9 % sodium chloride bolus 1,000 mL (12 mL/kg), IntraVENous, at 495.9 mL/hr, Administer over 121 Minutes, ONCE, On Sun06/21/22 at 1200, For 1 dose, For adult patients weighing > 55 kg (120 lbs.) and less than <50 years of age initiate 0.9NS at 500 mL/ hr. All bolus orders are to be given over 10 to 15 minutes 0.9 % sodium chloride bolus 1,000 mL (12 mL/kg), IntraVENous, at 495.9 mL/hr, Administer over 121 Minutes, ONCE, On Sun06/21/22 at 1530, For 1 dose, For adult patients weighing > 55 kg (120 lbs.) and less than <50 years of age initiate 0.9NS at 500 mL/ hr. All bolus orders are to be given over 10 to 15 minutes enoxaparin (LOVENOX) injection 40 mg 40 mg, SubCUTAneous, DAILY, First dose on Sun06/21/22 at 1730, Until Discontinued, Indication of Use: Prophylaxis-DVT/PE 0916 (Given - Provider: Jeremy Izquierdo RN) 0837 (Given - Provider: Yennifer El) 0900 (Due) famotidine (PEPCID) 20 mg in sodium chloride (PF) 0.9 % 10 mL injection 20 mg, IntraVENous, 2 TIMES DAILY, First dose on Sun06/22/22 at 1230, Until Discontinued, IV Push over minimum of 2 minutes - Dilute with 10 mL NS 1325 (Given - Provider: Jeremy Izquierdo RN)2136 (Given - Provider: Corin Castanon RN) 0837 (Given - Provider: Yennifer El)2056 (Given - Provider: Daiana Mercado RN) 0900 (Due)2100 (Due) lacosamide (VIMPAT) 150 mg in sodium chloride 0.9 % 65 mL IVPB 150 mg, IntraVENous, at 130 mL/hr, Administer over 30 Minutes, 2 TIMES DAILY BEFORE MEALS, First dose on Sun06/22/22 at 0930 0937 (New Bag - Provider: Jeremy Izquierdo RN)1056 (Stopped - Provider: Jeremy Izquierdo RN)1519 (New Bag - Provider: Jeremy Izquierdo RN)1636 (Stopped - Provider: Jeremy Izquierdo RN) 0722 (New Bag - Provider: Yennifer El)0754 (Stopped - Provider: Yennifer El)1539 (New Bag - Provider: Yennifer El)1609 (Stopped - Provider: Yennifer El) 0700 (Due)1600 (Due) levETIRAcetam (KEPPRA) 1,500 mg in sodium chloride 0.9 % 100 mL IVPB (CANCELED) 1,500 mg, IntraVENous, EVERY MORNING, First dose on Sun06/22/22 at 0900, Until Discontinued 0916 (New Bag - Provider: Jeremy Izquierdo RN)0938 (Stopped - Provider: Jeremy Izquierdo RN) 1013 (New Bag - Provider: Yennifer El)1028 (Stopped - Provider: Yennifer El) levETIRAcetam (KEPPRA) 1500 mg/100 mL IVPB 1,500 mg, IntraVENous, EVERY MORNING, First dose on 06/24/22 at 0900, Until Discontinued 0900 (Due) levETIRAcetam (KEPPRA) 2,000 mg in sodium chloride 0.9 % 250 mL IVPB 2,000 mg, IntraVENous, Nightly, First dose on Vilma 06/22/22 at 2100, Until Discontinued, For seizures, administer over 15 minutes. For subarachnoid hemorrhage or traumatic brain injury, administer over 60 minutes. 2147 (New Bag - Provider: Corin Castanon RN)2202 (Stopped - Provider: Corin Castanon, RN) 2036 (New Bag - Provider: Daiana Mercado, ARA)2054 (Stopped - Provider: Daiana Mercado, ARA) 2099 (Due) sodium chloride flush 0.9 % injection 5-40 mL 5-40 mL, IntraVENous, EVERY 12 HOURS SCHEDULED (2 times per day), First dose on 06/21/22 at 2100, Until Discontinued, For Line Patency: Peripheral IV = 5 mL; Midline or Central Line = 10 mL/lumen. If following IV push medication, administer flush at same rate as the IV push. Flush volume is determined by type of infusion therapy being given. For non-viscous solutions use: Peripheral IV = 5 mL Midline or Central Line = 10 mL/lumen For viscous solutions (i.e. blood components, parenteral nutrition, contrast media, or after obtaining blood sample) use: Peripheral IV = 10 mL Midline or Central Line = 20 mL/lumen 0015 (Not Given - Provider: Alesha Galiica RN - Reason: IV Fluid Infusing)09 (Not Given - Provider: Jeremy Izquierdo RN - Reason: IV Fluid Infusing)2207 (Not Given - Provider: Corin Castanon RN - Reason: IV Fluid Infusing) 0843 (Not Given - Provider: Yennifer El - Reason: IV Fluid Infusing)190 (Not Given - Provider: Diaana Mercado RN - Reason: IV Fluid Infusing) 0900 (Due)2100 (Due) Continuous Medication Order 06/22/2022 06/23/2022 06/24/2022 0.9 % sodium chloride infusion IntraVENous, at 125 mL/hr, CONTINUOUS, Starting on Sun06/21/22 at 1730 0859 (New Bag - Provider: Carlie Sanchez, ARA)1901 (New Bag - Provider: Corin Castanon, RN) 0338 (New Bag - Provider: Corin Castanon, RN)1238 (New Bag - Provider: Yennifer El) PRN Medication Order 06/22/2022 06/23/2022 06/24/2022 0.9 % sodium chloride infusion IntraVENous, at 5-250 mL/hr, PRN, if patient receiving piggyback infusions and maintenance fluids are not ordered OR KVO fluids to protect IV site / prevent frequent line interruptions/ long duration, Starting on Sun06/21/22 at 1710, For piggyback infusion, administer at same rate as piggyback for a total of 25 mL. Enter 25 mL into dose field and piggyback rate into rate field of order. If piggyback is infusing at a rate less than 100 mL/hr, enter 25 mL into dose field and 100 mL/hr into rate field of order. For KVO fluids, enter rate of 20 mL/hr or less into rate field of order. acetaminophen (TYLENOL) suppository 650 mg(Linked Group 1) 650 mg, Rectal, EVERY 6 HOURS PRN, Starting on Sun06/21/22 at 1710, Until Discontinued, Pain Mild (1-3), Fever, For temp greater than 100.4 F (38 C), Administer if oral route cannot be used. acetaminophen (TYLENOL) tablet 650 mg(Linked Group 1) 650 mg, Oral, EVERY 6 HOURS PRN, Starting on Sun06/21/22 at 1710, Until Discontinued, Pain Mild (1-3), Fever, For temp greater than 100.4 F (38 C), Maximum dose of acetaminophen is 4000 mg from all sources in 24 hours. diatrizoate meglumine-sodium (GASTROGRAFIN) 66-10 % solution 75 mL 75 mL, Per NG tube, IMG ONCE PRN, Starting on Vilma 06/22/22 at 1322, Until Discontinued, Other 1322 (Given - Provider: Leilani Cross) diazePAM (DIASTAT) rectal gel 20 mg 20 mg, Rectal, PRN, Starting on Sun06/21/22 at 1710, Until Discontinued, seizure activity >15 minutes ondansetron (ZOFRAN) injection 4 mg(Linked Group 2) 4 mg, IntraVENous, EVERY 6 HOURS PRN, Starting on Sun06/21/22 at 1710, Until Discontinued, Nausea, Vomiting, Administer if oral route cannot be used. ondansetron (ZOFRAN-ODT) disintegrating tablet 4 mg(Linked Group 2) 4 mg, Oral, EVERY 8 HOURS PRN, Starting on Sun06/21/22 at 1710, Until Discontinued, Nausea, Vomiting polyethylene glycol (GLYCOLAX) packet 17 g 17 g, Oral, DAILY PRN, Starting on Sun06/21/22 at 1710, Until Discontinued, Constipation, First line therapy for constipation sodium chloride flush 0.9 % injection 10 mL 10 mL, IntraVENous, PRN, Starting on Sun06/21/22 at 1710, Until Discontinued, Line Care, After every IV line use Linked Groups Order Group 1: acetaminophen (TYLENOL) tablet 650 mgJump to med 650 mg, Oral, EVERY 6 HOURS PRN, Starting on Sun06/21/22 at 1710, Until Discontinued, Pain Mild (1-3), Fever, For temp greater than 100.4 F (38 C)
Maximum dose of acetaminophen is 4000 mg from all sources in 24 hours.
Or acetaminophen (TYLENOL) suppository 650 mgJump to med 650 mg, Rectal, EVERY 6 HOURS PRN, Starting on Sun06/21/22 at 1710, Until Discontinued, Pain Mild (1-3), Fever, For temp greater than 100.4 F (38 C)
Administer if oral route cannot be used.
Group 2: ondansetron (ZOFRAN-ODT) disintegrating tablet 4 mgJump to med 4 mg, Oral, EVERY 8 HOURS PRN, Starting on Sun06/21/22 at 1710, Until Discontinued, Nausea, Vomiting Or ondansetron (ZOFRAN) injection 4 mgJump to med 4 mg, IntraVENous, EVERY 6 HOURS PRN, Starting on Sun06/21/22 at 1710, Until Discontinued, Nausea, Vomiting
Administer if oral route cannot be used.
Scheduled Medication Order 09/05/2022 09/06/2022 09/07/2022 bisacodyl (DULCOLAX) suppository 10 mg (CANCELED) 10 mg, Rectal, DAILY, First dose on Sun09/03/22 at 1145, Until Discontinued 09 (Not Given - Provider: Georgie Dillard RN - Reason: Contraindicated - Comment: multiple large loose BMs this morning) 0853 (Given - Provider: Venkat Leslie RN) 0949 (Not Given - Provider: Carlie Sanchez RN - Reason: Contraindicated - Comment: pt having multiple BMs a day) calcium carbonate (TUMS) chewable tablet 500 mg 500 mg (1 tablet), Oral, 2 TIMES DAILY, First dose on 09/02/22 at 2330, Until Discontinued 09 (Automatically Held - Provider: RAISA Mejia CNP)2100 (Automatically Held - Provider: RAISA Mejia CNP) 0900 (Automatically Held - Provider: RAISA Mejia CNP)1107 (Unheld by provider - Provider: RAISA Mejia CNP)2030 (Given - Provider: Anais Addison RN) 0947 (Given - Provider: Carlie Sanchez RN)2100 (Due) enoxaparin (LOVENOX) injection 40 mg 40 mg, SubCUTAneous, DAILY, First dose on Sun09/03/22 at 0900, Until Discontinued, Indication of Use: Prophylaxis-DVT/PE 0858 (Given - Provider: Georgie Dillard RN) 0853 (Given - Provider: Venkat Leslie RN) 0930 (Given - Provider: Carlie Sanchez RN) erythromycin (EES) 200 MG/5ML suspension 200 mg 200 mg, Oral, 4 TIMES DAILY WITH MEALS & NIGHTLY, First dose (after last modification) on Sun09/05/22 at 1200, Until Discontinued, Antimicrobial Indications: Other, Other Abx Indication: gi motility, Take on an empty stomach, at least 30 minutes prior to a meal. 1316 (Given - Provider: Georgie Dillard RN)1717 (Given - Provider: Georgie Dillard RN)205 (Given - Provider: Connie Newsome RN) 0855 (Given - Provider: Venkat Leslie RN)1137 (Given - Provider: Venkat Leslie RN)1648 (Given - Provider: Venkat Leslie, ARA)2054 (Given - Provider: Anais Addison, ARA) 0739 (Given - Provider: Carlie Sanchez, ARA)1230 (Given - Provider: Carlie Sanchez, ARA)1700 (Due)2099 (Due) erythromycin (EES) 200 MG/5ML suspension 200 mg (COMPLETED) 200 mg, Oral, ONCE, 1 dose, On Sun09/05/22 at 1030, Antimicrobial Indications: Other, Other Abx Indication: gi motility, Take on an empty stomach, at least 30 minutes prior to a meal. 1050 (Given - Provider: Georgie Dillard RN) finasteride (PROSCAR) tablet 5 mg 5 mg, Oral, NIGHTLY, First dose on Sun09/02/22 at 2330, Until Discontinued, Women should not handle crushed or broken finasteride tablets when they are or may potentially be , due to potential risk to the fetus. 2100 (Automatically Held - Provider: RAISA Mejia CNP) 1107 (Unheld by provider - Provider: RAISA Mejia CNP)2031 (Given - Provider: Anais Addison RN) 2099 (Due) hydrocortisone 2.5 % cream Topical, 2 TIMES DAILY, First dose on Sun09/02/22 at 2330, Apply to affected areas. 0900 (Automatically Held - Provider: RAISA Mejia CNP)2100 (Automatically Held - Provider: RAISA Mejia CNP) 09 (Automatically Held - Provider: RAISA Mejia CNP)1107 (Unheld by provider - Provider: RAISA Mejia CNP)2055 (Given - Provider: Anais Addison, ARA) 1120 (Not Given - Provider: Carlie Sanchez RN - Reason: Patient/family refused)2099 (Due) lacosamide (VIMPAT) 150 mg in sodium chloride 0.9 % 65 mL IVPB (CANCELED) 150 mg, IntraVENous, at 130 mL/hr, Administer over 30 Minutes, 2 TIMES DAILY, First dose on Sun09/04/22 at 2100 1020 (New Bag - Provider: Georgie Dillard RN)1050 (Stopped - Provider: Georgie Dillard RN)2111 (New Bag - Provider: Connie Newsome RN)2143 (Stopped - Provider: Connie Newsome RN) 09 (New Bag - Provider: Venkat Leslie RN)110 (Stopped - Provider: Venkat Leslie RN) lacosamide (VIMPAT) tablet 150 mg 150 mg, Oral, 2 TIMES DAILY, First dose on Sun09/02/22 at 2330, Until Discontinued, Swallow tablets whole; do not crush, split, or chew. 09 (Automatically Held - Provider: RAISA Mejia CNP)2099 (Automatically Held - Provider: RAISA Mejia CNP) 09 (Automatically Held - Provider: RAISA Mejia CNP)110 (Unheld by provider - Provider: RAISA Mejia CNP)2030 (Given - Provider: Anais Addison RN) 09 (Given - Provider: Carlie Sanchez RN)2099 (Due) lamoTRIgine (LAMICTAL) tablet 400 mg 400 mg, Oral, EVERY MORNING, First dose (after last reorder) on Sun09/06/22 at 1145, Until Discontinued 113 (Given - Provider: Venkat Leslie RN) 09 (Given - Provider: Carlie Sanchez RN) lamoTRIgine (LAMICTAL) tablet 600 mg 600 mg, Oral, Nightly, First dose on 09/02/22 at 2330, Until Discontinued 2099 (Automatically Held - Provider: RAISA Mejia CNP) 110 (Unheld by provider - Provider: RAISA Mejia CNP)2030 (Given - Provider: Anais Addison RN) 2100 (Due) latanoprost (XALATAN) 0.005 % ophthalmic solution 1 drop 1 drop, Both Eyes, NIGHTLY, First dose on 09/02/22 at 2330, Until Discontinued 2049 (Given - Provider: Connie Newsome RN) 2054 (Given - Provider: Anais Addison RN) 2100 (Due) levETIRAcetam (KEPPRA) 1500 mg/100 mL IVPB (CANCELED) 1,500 mg, IntraVENous, 2 times daily, First dose on Sun09/03/22 at 2100, Until Discontinued 0904 (New Bag - Provider: Georgie Dillard RN)0919 (Stopped - Provider: Georgie Dillard RN)2047 (New Bag - Provider: Connie Newsome RN)2105 (Stopped - Provider: Connie Newsome RN) 0858 (New Bag - Provider: Venkat Leslie RN)0923 (Stopped - Provider: Venkat Leslie RN) levETIRAcetam (KEPPRA) tablet 1,500 mg 1,500 mg, Oral, EVERY MORNING, First dose on Sun09/03/22 at 0900, Until Discontinued, Do not crush or chew. 0900 (Automatically Held - Provider: Lyla Zepeda MD) 0900 (Automatically Held - Provider: Lyla Zepeda MD)1107 (Unheld by provider - Provider: Dorota Woodson APRN - [facility]) 0930 (Given - Provider: Carlie Sanchez RN) levETIRAcetam (KEPPRA) tablet 2,000 mg 2,000 mg, Oral, EVERY EVENING, First dose on Sun09/02/22 at 2330, Until Discontinued, Do not crush or chew. 1800 (Automatically Held - Provider: Lyla Zepeda MD) 1107 (Unheld by provider - Provider: Dorota Woodson, [employer] - [facility])1732 (Given - Provider: Venkat Leslie RN) 1800 (Due) oxybutynin (DITROPAN-XL) extended release tablet 10 mg 10 mg, Oral, DAILY, First dose (after last reorder) on Sun09/06/22 at 1145, Until Discontinued, Do not crush or break. 1133 (Given - Provider: Venkat Leslie RN) 0946 (Given - Provider: Carlie Sanchez, ARA) pantoprazole (PROTONIX) 40 mg in sodium chloride (PF) 0.9 % 10 mL injection 40 mg, IntraVENous, DAILY, First dose on 09/04/22 at 1030, Reconstitute with 10 mL 0.9 % sodium chloride and administer over at least 2 minutes. 0859 (Given - Provider: Georgie Dillard RN) 0853 (Given - Provider: Venkat Leslie RN) 0949 (Given - Provider: Carlie Sanchez, ARA) primidone (MYSOLINE) tablet 250 mg 250 mg, Oral, EVERY MORNING, First dose (after last reorder) on Sun09/06/22 at 1145, Until Discontinued 1135 (Given - Provider: Venkat Leslie RN) 0930 (Given - Provider: Carlie Sanchez RN) primidone (MYSOLINE) tablet 375 mg 375 mg, Oral, NIGHTLY, First dose on 09/02/22 at 2330, Until Discontinued 2099 (Automatically Held - Provider: Dorota Woodson APRN [facility]) 1106 (Unheld by provider - Provider: Dorota Woodson APRN [employer])2030 (Given - Provider: Anais Addison RN) 2099 (Due) senna (SENOKOT) tablet 8.6 mg 8.6 mg (1 tablet), Oral, 2 TIMES DAILY, First dose (after last modification) on Sun09/06/22 at 1145, Until Discontinued 1131 (Given - Provider: Venkat Leslie RN)2031 (Given - Provider: Anais Addison RN) 0947 (Given - Provider: Carlie Sanchez RN)2099 (Due) sodium chloride flush 0.9 % injection 10 mL 10 mL, IntraVENous, EVERY 12 HOURS SCHEDULED (2 times per day), First dose on 09/02/22 at 2330, Until Discontinued 905 (Not Given - Provider: Georgie Dillard RN - Reason: IV Fluid Infusing)2051 (Not Given - Provider: Connie Newsome RN - Reason: IV Fluid Infusing) 110 (Not Given - Provider: Venkat Leslie RN - Reason: IV Fluid Infusing)2055 (Given - Provider: Anais Addison, ARA) 0740 (Given - Provider: Carlie Sanchez RN)2100 (Due) tamsulosin (FLOMAX) capsule 0.4 mg 0.4 mg, Oral, 2 TIMES DAILY, First dose (after last modification) on Sun09/06/22 at 1145, Until Discontinued, Do not crush or break. Give 30 minutes after a full meal to limit risk of orthostatic hypotension/falls. 1133 (Given - Provider: Venkat Leslie ARA)2030 (Given - Provider: Anais Addison, RN) 0948 (Given - Provider: Carlie Sanchez, ARA)2099 (Due) traZODone (DESYREL) tablet 50 mg 50 mg, Oral, NIGHTLY, First dose on 09/02/22 at 2330, Until Discontinued 2100 (Automatically Held - Provider: RAISA Mejia CNP) 1107 (Unheld by provider - Provider: RAISA Mejia CNP)2030 (Given - Provider: Anais Addison, ARA) 2099 (Due) Vitamin D (CHOLECALCIFEROL) tablet 1,000 Units 1,000 Units, Oral, DAILY, First dose on 09/03/22 at 0900, Until Discontinued, Labeling may look different. 25 vin=0535 Units. Please double check dosages. 0900 (Automatically Held - Provider: RAISA Mejia CNP) 0900 (Automatically Held - Provider: RAISA Mejia CNP)1107 (Unheld by provider - Provider: RAISA Mejia CNP) 0947 (Given - Provider: Carlie Sanchez, ARA) Continuous Medication Order 09/05/2022 09/06/2022 09/07/2022 lactated ringers IV soln infusion (CANCELED) IntraVENous, at 75 mL/hr, CONTINUOUS, Starting on 09/02/22 at 2330 0233 (New Bag - Provider: Rachel Eli RN)1502 (New Bag - Provider: Georgie Dillard RN) 0419 (New Bag - Provider: Connie Newsome RN) PRN Medication Order 09/05/2022 09/06/2022 09/07/2022 0.9 % sodium chloride infusion IntraVENous, at 5-250 mL/hr, PRN, if patient receiving piggyback infusions and maintenance fluids are not ordered OR KVO fluids to protect IV site / prevent frequent line interruptions/ long duration, Starting on 09/02/22 at 2314, For piggyback infusion, administer at same rate as piggyback for a total of 25 mL. Enter 25 mL into dose field and piggyback rate into rate field of order. If piggyback is infusing at a rate less than 100 mL/hr, enter 25 mL into dose field and 100 mL/hr into rate field of order. For KVO fluids, enter rate of 20 mL/hr or less into rate field of order. acetaminophen (TYLENOL) suppository 650 mg(Linked Group 1) 650 mg, Rectal, EVERY 6 HOURS PRN, Starting on 09/02/22 at 2314, Until Discontinued, Pain Mild (1-3), Fever, For temp greater than 100.4 F (38 C), Administer if oral route cannot be used. 1400 (Unheld by provider - Provider: Dorota Woodson, RAISA - [facility]) acetaminophen (TYLENOL) tablet 650 mg(Linked Group 1) 650 mg, Oral, EVERY 6 HOURS PRN, Starting on 09/02/22 at 2314, Until Discontinued, Pain Mild (1-3), Fever, For temp greater than 100.4 F (38 C), Maximum dose of acetaminophen is 4000 mg from all sources in 24 hours. 1400 (Unheld by provider - Provider: Dorota Woodson, RAISA - [facility]) diazePAM (DIASTAT) rectal gel 20 mg 20 mg, Rectal, PRN, Starting on 09/02/22 at 2314, Until Discontinued, seizures, as indicated hydrOXYzine HCl (ATARAX) tablet 25 mg 25 mg, Oral, EVERY 12 HOURS PRN, Starting on 09/02/22 at 2314, Until Discontinued, Itching 1400 (Unheld by provider - Provider: Dorota Woodson, RAISA - [employer]) LORazepam (ATIVAN) tablet 0.5 mg 0.5 mg, Oral, EVERY 8 HOURS PRN, Starting on 09/02/22 at 2314, Until Discontinued, Agitation, Seizures, Anxiety 1400 (Unheld by provider - Provider: Dorota Woodson, RAISA - [employer]) magnesium sulfate 2000 mg in 50 mL IVPB premix 2,000 mg, IntraVENous, at 25 mL/hr, Administer over 2 Hours, PRN, Other, Magnesium Replacement, Starting on 09/02/22 at 2314, Mag Lab Replacement Action 1.4-1.6 mg/dL 2,000 mg Total Dose Given as 1,000 mg IVPB x 2 doses or 2,000 mg IVPB x 1 dose 1.0-1.3 mg/dL 4,000 mg Total Dose Given as 1,000 mg IVPB x 4 doses or 2,000 mg IVPB x 2 doses Less than 1.0 mg/dL CALL PHYSICIAN and give 4,000 mg Total Dose Given as 1,000 mg IVPB x 4 doses or 2,000 mg IVPB x 2 doses Infuse at 1,000 mg/hr Repeat Mag level next AM Protocol not for use in Patients with CrCl less than 30ml/min meclizine (ANTIVERT) tablet 25 mg 25 mg, Oral, EVERY 8 HOURS PRN, Starting on 09/02/22 at 2314, Until Discontinued, Dizziness 1400 (Unheld by provider - Provider: RAISA Mejia CNP) melatonin tablet 3 mg 3 mg, Oral, NIGHTLY PRN, Starting on 09/02/22 at 2314, Until Discontinued, insomnia 1400 (Unheld by provider - Provider: RAISA Mejia CNP) ondansetron (ZOFRAN) injection 4 mg(Linked Group 2) 4 mg, IntraVENous, EVERY 6 HOURS PRN, Starting on 09/02/22 at 2314, Until Discontinued, Nausea, Vomiting, Administer if oral route cannot be used. 1400 (Unheld by provider - Provider: RAISA Mejia CNP) ondansetron (ZOFRAN-ODT) disintegrating tablet 4 mg(Linked Group 2) 4 mg, Oral, EVERY 8 HOURS PRN, Starting on 09/02/22 at 2314, Until Discontinued, Nausea, Vomiting 1400 (Unheld by provider - Provider: RAISA Mejia CNP) polyethylene glycol (GLYCOLAX) packet 17 g 17 g, Oral, DAILY PRN, Starting on 09/02/22 at 2314, Until Discontinued, Constipation, First line therapy for constipation 1400 (Unheld by provider - Provider: RAISA Mejia CNP) sodium chloride flush 0.9 % injection 10 mL 10 mL, IntraVENous, PRN, Starting on Sat 7 at 2314, Until Discontinued, Line Care, After every IV line use 0949 (Given - Provid er: Carlie Sanchez RN) Linked Groups Order Group 1: acetaminophen (TYLENOL) tablet 650 mgJump to med 650 mg, Oral, EVERY 6 HOURS PRN, Starting on 09/02/22 at 2314, Until Discontinued, Pain Mild (1-3), Fever, For temp greater than 100.4 F (38 C)
Maximum dose of acetaminophen is 4000 mg from all sources in 24 hours.
Or acetaminophen (TYLENOL) suppository 650 mgJump to med 650 mg, Rectal, EVERY 6 HOURS PRN, Starting on 09/02/22 at 2314, Until Discontinued, Pain Mild (1-3), Fever, For temp greater than 100.4 F (38 C)
Administer if oral route cannot be used.
Group 2: ondansetron (ZOFRAN-ODT) disintegrating tablet 4 mgJump to med 4 mg, Oral, EVERY 8 HOURS PRN, Starting on 09/02/22 at 2314, Until Discontinued, Nausea, Vomiting Or ondansetron (ZOFRAN) injection 4 mgJump to med 4 mg, IntraVENous, EVERY 6 HOURS PRN, Starting on 09/02/22 at 2314, Until Discontinued, Nausea, Vomiting
Administer if oral route cannot be used.
Scheduled Medication Order 04/18/2023 04/19/2023 04/20/2023 heparin (porcine) injection 5,000 Units 5,000 Units, subcutaneous, Every 8 hours scheduled, First dose on 04/08/23 at 1100, Notify prescriber if INR greater than 1.9, hemoglobin less than 10 mg/dL, aPTT greater than 40 seconds, and/or platelet count less than 100,000/mm Look-alike/sound-alike medication - verify indication for use. Observe for bleeding. 0616 (Given - Provider: Melany Castellanos, ARA)1323 (Given - Provider: Jackson Giles RN)2318 (Given - Provider: Melany Castellanos RN) 0629 (Given - Provider: Melany Castellanos RN)1325 (Given - Provider: Martina Linton RN)204 (Given - Provider: Mendy Gonzáles, RN)220 (Canceled Entry - Provider: Mendy Gonzáles, ARA) 0531 (Given - Provider: Mendy Gonzáles RN) lacosamide (VIMPAT) 150 mg in sodium chloride 0.9 % 50 mL IVPB (CANCELED) 150 mg, intravenous, at 130 mL/hr, Administer over 30 Minutes, Every 12 hours, First dose on Sun04/08/23 at 1430 0215 (New Bag - Provider: Melany Castellanos RN)0245 (Stop Bag - Provider: Melany Castellanos RN) lacosamide (VIMPAT) tablet 150 mg 150 mg, oral, Every 12 hours, First dose on Sun04/18/23 at 1300, Swallow tablets whole; do not divide. 1323 (Given - Provider: Jackson Giles RN) 0143 (Given - Provider: Melany Castellanos RN)1325 (Given - Provider: Martina Linton RN) 0146 (Given - Provider: Mendy Gonzáles, ARA) lamoTRIgine (LaMICtal) tablet 400 mg 400 mg, oral, Daily, First dose on Sun04/18/23 at 0900, Look-alike/sound-alike medication - verify indication for use. 0737 (Given - Provider: Jackson Giles RN) 0905 (Given - Provider: Martina Linton, RN) 0819 (Given - Provider: Martina Linton, ARA) lamoTRIgine (LaMICtal) tablet 600 mg 600 mg, oral, Nightly, First dose on Sun04/17/23 at 2200, Look-alike/sound-alike medication - verify indication for use. 231 (Given - Provider: Melany Castellanos RN) 2038 (Given - Provider: Mendy Gonzáles, ARA)2199 (Canceled Entry - Provider: Mendy Gonzáles, ARA) latanoprost (XALATAN) 0.005 % ophthalmic solution 1 drop 1 drop, both eyes, Nightly, First dose on Sun04/09/23 at 2200 2318 (Given - Provider: Melany Castellanos RN) 2039 (Given - Provider: Mendy Gonzáles, ARA)2199 (Canceled Entry - Provider: Mendy Gonzáles, ARA) levETIRAcetam (KEPPRA) IVPB 1500 mg/100 mL in iso-osmotic sodium chloride (15 mg/mL premix) (CANCELED) 1,500 mg, intravenous, at 400 mL/hr, Administer over 15 Minutes, Every morning before breakfast, First dose on Sun04/08/23 at 1200, Look-alike/sound-alike medication - verify indication for use. 0645 (New Bag - Provider: Melany Castellanos RN)0658 (Rate/Dose Verify - Provider: Jackson Giles, RN)0700 (Stop Bag - Provider: Jackson Giles RN) levETIRAcetam (KEPPRA) tablet 1,500 mg 1,500 mg, oral, Daily, First dose on Sun04/19/23 at 0900, Look-alike/sound-alike medication - verify indication for use. 0904 (Given - Provider: Martina Linton RN) 0819 (Given - Provider: Martina Linton RN) levETIRAcetam (KEPPRA) tablet 2,000 mg 2,000 mg, oral, Nightly, First dose on Sun04/18/23 at 2200, Look-alike/sound-alike medication - verify indication for use. 2317 (Given - Provider: Melany Castellanos RN) 2038 (Given - Provider: Mendy Gonzáles, ARA)2200 (Canceled Entry - Provider: Mendy Gonzáles RN) magnesium oxide (MAGOX) tablet 400 mg 400 mg, oral, Daily, First dose on Sun04/19/23 at 1045 1324 (Given - Provider: Martina Linton RN) 0824 (Given - Provider: Martina Linton, ARA) primidone (MYSOLINE) tablet 250 mg 250 mg, oral, Daily, First dose on Sun04/18/23 at 0900 0737 (Given - Provider: Jackson Giles RN) 0905 (Given - Provider: Martina Linton, ARA) 0824 (Given - Provider: Martina Linton, ARA) primidone (MYSOLINE) tablet 375 mg 375 mg, oral, Nightly, First dose on Sun04/17/23 at 2200 2317 (Given - Provider: Melany Castellanos RN) 2039 (Given - Provider: Mendy Gonzáles, ARA)2200 (Canceled Entry - Provider: Mendy Gonzáles RN) sodium chloride 0.9 % flush 20 mL(Linked Group 1) 20 mL, intravenous, Every 12 hours, First dose (after last modification) on Sun04/09/23 at 0100, PICC line. Administer 10 mL per lumen; 20 mL total (for double lumen flush) 0216 (Given - Provider: Melany Castellanos, RN)1229 (Given - Provider: Jackson Giles RN) 0144 (Given - Provider: Melany Castellanos RN)0904 (Given - Provider: Martina Linton RN) 0100 (Not Given - Provider: Mendy Gonzáles RN - Reason: Loss of IV access) sodium chloride 0.9 % flush 3 mL 3 mL, intravenous, Every 12 hours scheduled, First dose on Sun04/08/23 at 0945 0738 (Not Given - Provider: Jackson Giles RN - Reason: Order parameters not met - Comment: PIV not in place)2325 (Given - Provider: Melany Castellanos RN) 0900 (Canceled Entry - Provider: Martina Linton RN)2100 (Not Given - Provider: Mendy Gonzáles RN - Reason: Loss of IV access) 0900 (Canceled Entry - Provider: Martina Linton RN - Comment: no IV access, pt discharging) terazosin (HYTRIN) capsule 1 mg 1 mg, nasogastric, Daily, First dose on Sun04/13/23 at 1145 0737 (Given - Provider: Jackson Giles RN) 0905 (Given - Provider: Martina Linton RN) 0824 (Given - Provider: Martina Linton RN) PRN Medication Order 04/18/2023 04/19/2023 04/20/2023 albuterol (PROVENTIL,VENTOLIN) nebulizer solution 2.5 mg 2.5 mg, nebulization, Every 6 hours PRN, wheezing, shortness of breath, Starting on Sun04/09/23 at 0820, Implement INPATIENT/ED Bronchodilator Clinical Practice Guidelines? Yes, Document: [email or web address] PIC_[email or web address]\Orders\Respir atory Care Guidelines\CPG Bronchodilator 2020.pdf barium sulfate (E-Z-DISK) tablet 700 mg 700 mg, oral, Once in imaging, contrast, contrast, Starting on Sun04/16/23 at 0754, For 1 dose barium sulfate (E-Z-HD) 98 % suspension 340 g 340 g, oral, Once in imaging, contrast, contrast, Starting on Sun04/16/23 at 0754, For 1 dose barium sulfate (E-Z-PAQUE) 96 % (w/w) powder 176 g 176 g, oral, Once in imaging, contrast, contrast, Starting on 04/16/23 at 0754, For 1 dose barium sulfate (E-Z-PASTE) 60 % oral cream 454 g 454 g, oral, Once in imaging, contrast, contrast, Starting on Sun04/16/23 at 0754, For 1 dose barium sulfate (LIQUID E-Z PAQUE) 60 % (w/v) suspension 355 mL 355 mL, oral, Once in imaging, contrast, contrast, Starting on Sun04/16/23 at 0754, For 1 dose barium sulfate (LIQUID POLIBAR PLUS) 105 % (w/v), 58 % (w/w) suspension 300 mL 300 mL, oral, Once in imaging, contrast, Liquid Polibar plus, Starting on Sun04/16/23 at 0754, For 1 dose barium sulfate (VARIBAR HONEY) 40 % (w/v) 29% (w/w) suspension 250 mL 250 mL, oral, Once in imaging, contrast, contrast, Starting on Sun04/16/23 at 0754, For 1 dose dextrose (GLUTOSE) 40 % gel 15 g 15 g, oral, As needed, low blood sugar, blood glucose less than 70 mg/dL, Starting on Sun04/08/23 at 0935, If patient conscious and taking PO. If blood glucose is not greater than 70 mg/dL after initial treatment, repeat treatment. dextrose 5 % (D5W) infusion 100 mL/hr, intravenous, Continuous PRN, blood glucose less than 70 mg/dL, Starting on Sun04/08/23 at 0935, Use immediately following dextrose 50% or glucagon treatment for patients who are unconscious or NPO. Contact prescriber for additional orders. If blood glucose is not greater than 70 mg/dL after initial treatment, repeat treatment. dextrose 50 % in water (D50W) 50% solution 25 mL 25 mL, intravenous, As needed, low blood sugar, blood glucose less than 70 mg/dL and unconscious or NPO with IV access, Starting on Sun04/08/23 at 0935, Push over 1-3 minutes STAT. If conscious and not NPO, immediately follow with meal tray or high protein (7 grams) snack if tray not available. If NPO, initiate 5% dextrose in water at 100 mL/hr and contact prescriber for additional orders. If blood glucose is not greater than 70 mg/dL after initial treatment, repeat treatment. VESICANT (RED) Warning: HYPERTONIC solution. glucagon HCL injection 1 mg 1 mg, intramuscular, As needed, low blood sugar, blood glucose less than 70 mg/dL and unconscious or NPO without IV access., Starting on [place] 04/08/23 at 0935, If conscious and not NPO, immediately follow with meal tray or high protein (7Grams) snack if tray not available. If NPO, initiate IV 5% Dextrose/Water at 100 mL/hr and contact prescriber for additional orders. If blood glucose is not greater than 70 mg/dL after initial treatment, repeat treatment. magnesium sulfate IVPB 2000 mg/50 mL in iso-osmotic water (40 mg/mL premix) 2,000 mg, intravenous, at 25 mL/hr, Administer over 120 Minutes, As needed, Magnesium level 1.7 to 1.9 mg/dL, or Ionized Magnesium level 0.45 to 0.5 mmol/L., Starting on [place] 04/08/23 at 1151, Recheck magnesium level 4 hours after infusion complete. With each magnesium result continue the replacement orders as needed. 0747 (New Bag - Provider: Jackson Giles RN)0948 (Stop Bag - Provider: Jackson Giles RN) 0649 (New Bag - Provider: Melany Castellanos RN)0849 (Stop Bag - Provider: Martina Linton RN) magnesium sulfate IVPB 4000 mg/100 mL in iso-osmotic water (40 mg/mL premix) 4,000 mg, intravenous, at 25 mL/hr, Administer over 240 Minutes, As needed, Magnesium level 1.6 mg/dL or less, or Ionized Magnesium level 0.44 mmol/L or less, Starting on [place] 04/08/23 at 1151, Recheck magnesium level 4 hours after infusion complete. With each magnesium result continue the replacement orders as needed. potassium chloride IVPB 10 mEq/100 mL in water (0.1 mEq/mL premix) 10 mEq, intravenous, at 100 mL/hr, Administer over 60 Minutes, As needed, POTASSIUM REPLACEMENT, Starting on Sun04/08/23 at 1151, Potassium level 3 mmol/L or less administer Potassium Chloride 50 mEq Potassium level 3.1 to 3.3 mmol/L administer Potassium Chloride 40 mEq Potassium level 3.4 to 3.8 mmol/L administer Potassium Chloride 30 mEq Use central line when applicable. Recheck potassium level 1 hour after total IVPB infusion complete With each potassium result continue the replacement orders as needed VESICANT (YELLOW) Infuse each 10 mEq over a minimum of 1 hour., Indications: hypokalemia sod phos di, mono-K phos mono (K-PHOS NEUTRAL) 250 mg tablet 2 tablet(Linked Group 2) 2 tablet, oral, As needed, for phosphorus level 2.3 mg/dL or less., Starting on Sun04/09/23 at 0817, If dose administered, recheck phosphorus level 4 hours after last dose. Look-alike/sound-alike medication - verify indication for use. Give with a full glass of water. 0252 (See Alternative - Provider: Melany Castellanos RN)0636 (See Alternative - Provider: Jackson Giles RN)0638 (See Alternative - Provider: Jackson Giles, ARA)0655 (See Alternative - Provider: Jackson Giles, ARA)1631 (See Alternative - Provider: Jackson Giles, ARA)2031 (See Alternative - Provider: Melany Castellanos, ARA) sodium chloride 0.9 % flush 20 mL(Linked Group 1) 20 mL, intravenous, As needed, line care, Starting on Sun04/08/23 at 1334, PICC line. Administer 10 mL to each lumen before and after each use. Administer 10 mL per lumen; 20 mL total (for double lumen flush) sodium chloride 0.9 % flush 3 mL 3 mL, intravenous, As needed, line care, before and after each intermittent use, Starting on Sun04/08/23 at 0935 sodium chloride 0.9 % flush 40 mL(Linked Group 1) 40 mL, intravenous, As needed, line care, Starting on Sun04/08/23 at 1334, PICC line. Administer 20 mL to each lumen after lab draws, blood infusion, and meds known to precipitate. Administer 20 mL per lumen; 40 mL total (for double lumen flush) sodium chloride 0.9 % flush bag 25 mL, intravenous, at 100 mL/hr, Administer over 15 Minutes, As needed, line care, line care after IVPB administration, Starting on 04/08/23 at 0935 sodium chloride 0.9 % infusion 20 mL/hr, intravenous, Continuous PRN, to maintain patency of lines, Starting on 04/08/23 at 0935 sodium phosphate 20 mmol in sodium chloride 0.9 % 100 mL IVPB(Linked Group 2) 20 mmol, intravenous, at 26.7 mL/hr, Administer over 4 Hours, As needed, for phosphorus level 2.3 mg/dL or less., Starting on Sun04/09/23 at 0817, Administer over 4 hours via dedicated line (central line). If administered, recheck phosphorus level 4 hours after infusion complete. Infuse using central line access. 0252 (New Bag - Provider: Melany Castellanos RN)0636 (Paused - Provider: Jackson Giles RN)0638 (Restarted - Provider: Jackson Giles RN)0655 (Stop Bag - Provider: Jackson Giles RN)163 (New Bag - Provider: Jackson Giles, RN)2030 (Stop Bag - Provider: Melany Castellanos, ARA) sodium phosphate 20 mmol in sodium chloride 0.9 % 250 mL IVPB(Linked Group 2) 20 mmol, intravenous, at 42.8 mL/hr, Administer over 6 Hours, As needed, for phosphorus level 2.3 mg/dL or less, Starting on Sun04/09/23 at 0817, Administer over 6 hours via dedicated line (peripheral line). If administered, recheck phosphorus level 4 hours after infusion complete. 0252 (See Alternative - Provider: Melany Castellanos RN)0636 (See Alternative - Provider: Jackson Giles RN)0638 (See Alternative - Provider: Jackson Giles RN)0655 (See Alternative - Provider: Jackson Giles RN)163 (See Alternative - Provider: Jackson Giles, ARA)2030 (See Alternative - Provider: Melany Castellanos RN) Linked Groups Order Group 1: Consult PICC nurse - Midline (COMPLETED) Reason for consult? Insert PICC, Indication: Difficult Access, Blood Draws, Peripherally incompatible therapy, Number of Lumen(s): 2 Lumens, Reason for multiple lumens: multilple IV medications And sodium chloride 0.9 % flush 20 mLJump to med 20 mL, intravenous, Every 12 hours, First dose (after last modification) on Sun04/09/23 at 0100, PICC line. Administer 10 mL per lumen; 20 mL total (for double lumen flush) And sodium chloride 0.9 % flush 20 mLJump to med 20 mL, intravenous, As needed, line care, Starting on 04/08/23 at 1334, PICC line. Administer 10 mL to each lumen before and after each use. Administer 10 mL per lumen; 20 mL total (for double lumen flush) And sodium chloride 0.9 % flush 40 mLJump to med 40 mL, intravenous, As needed, line care, Starting on 04/08/23 at 1334, PICC line. Administer 20 mL to each lumen after lab draws, blood infusion, and meds known to precipitate. Administer 20 mL per lumen; 40 mL total (for double lumen flush) Group 2: sodium phosphate 20 mmol in sodium chloride 0.9 % 250 mL IVPBJump to med 20 mmol, intravenous, at 42.8 mL/hr, Administer over 6 Hours, As needed, for phosphorus level 2.3 mg/dL or less, Starting on Sun04/09/23 at 0817, Administer over 6 hours via dedicated line (peripheral line). If administered, recheck phosphorus level 4 hours after infusion complete. Or sodium phosphate 20 mmol in sodium chloride 0.9 % 100 mL IVPBJump to med 20 mmol, intravenous, at 26.7 mL/hr, Administer over 4 Hours, As needed, for phosphorus level 2.3 mg/dL or less., Starting on Sun04/09/23 at 0817, Administer over 4 hours via dedicated line (central line). If administered, recheck phosphorus level 4 hours after infusion complete. Infuse using central line access. Or sod phos di, mono-K phos mono (K-PHOS NEUTRAL) 250 mg tablet 2 tabletJump to med 2 tablet, oral, As needed, for phosphorus level 2.3 mg/dL or less., Starting on Sun04/09/23 at 0817, If dose administered, recheck phosphorus level 4 hours after last dose. Look-alike/sound-alike medication - verify indication for use. Give with a full glass of water. FOR RECORDS PERTAINING TO PATIENTS WHO ARE OR HAVE BEEN ENROLLED IN A CHEMICAL DEPENDENCY/SUBSTANCEABUSE PROGRAM, SOME INFORMATION MAY BE OMITTED. This clinical summary was aggregated from multiple sources. Caution should be exercised in using it in the provision of clinical care. This summary normalizes information from multiple sources, and as a consequence, information in this document may materially change the coding, format and clinical context of patient data. In addition, data may be omitted in some cases. CLINICAL DECISIONS SHOULD BE BASED ON THE PRIMARY CLINICAL RECORDS. [employer] [facility]. provides no warranty or guarantee of the accuracy or completeness of information in this document.
[2023-04-23] MEDS: HEPARIN SODIUM (PORCINE) 5,000 UNIT/ML VIAL 5000 UNIT SUBQ (22:54)
[2023-04-23] MEDS: DEXTROSE 5 %-0.45 % SOD CHLORD 1,000 ML 125 ML IV (22:54)
[2023-04-23] MEDS: LEVETIRACETAM 2,000 MG in 0.9 % SODIUM CHLORIDE 100 ML 440 MG IV (23:04)
[2023-04-24] VITALS (26 sets, daily range): BP systolic 88–107; BP diastolic 55–69; PULSE 70–87; RESP 10–34; TEMP 36.6–36.7; O2SAT 83–100
[2023-04-24 04:45] LABS: Basophils Absolute Auto 0.1 10^3/uL (0.0-0.1); Basophils Percent Auto 0.5 % (0.2-2.0); Eosinophils Absolute Auto 0.1 10^3/uL (0.0-0.7); Eosinophils Percent Auto 0.8 % (0.9-7.0); Hematocrit 34.8 % (42.0-54.0); Hemoglobin 10.8 g/dL (14.0-18.0); Immature Granulocytes Abs Auto 0.03 10^3/uL (0.00-0.03); Immature Granulocytes Pct Auto 0.2 % (0.0-0.5); Lymphocytes Absolute Auto 1.8 10^3/uL (1.2-3.8); Lymphocytes Percent Auto 14.2 % (20.5-60.0); Mean Corpuscular Hemoglobin 32.7 pg (25.9-34.0); Mean Corpuscular Volume 105.5 fL (80.0-94.0); Mean Platelet Volume 8.9 fL (9.5-13.5); Monocytes Percent Auto 7.9 % (1.7-12.0); Neutrophils Absolute Auto 9.7 10^3/uL (1.4-6.5); Neutrophils Percent Auto 76.4 % (43.0-75.0); Platelet Count 333 10^3/uL (150-450); Red Cell Distribution Width 13.8 % (11.0-15.0); White Blood Count 12.7 10^3/uL (4.0-11.0)
[2023-04-24 04:59] LABS: Anion Gap 15.2; BUN Creatinine Ratio 29.1; Calcium 8.8 mg/dL (8.5-10.1); Carbon Dioxide 22.9 mmol/L (21.0-32.0); Chloride 110 mmol/L (98-107); Estimated GFR (African America >60 (>=60); Estimated GFR (Non-African Ame >60 (>=60); Glucose 118 mg/dL (74-106); Potassium 4.1 mmol/L (3.5-5.1); Sodium 144 mmol/L (136-145)
[2023-04-24] MEDS: PANTOPRAZOLE SODIUM 40 MG VIAL IV (05:34)
[2023-04-24] MEDS: DEXTROSE 5 %-0.45 % SOD CHLORD 1,000 ML 125 ML IV ×2 (06:33→13:24)
--- NOTE | 2023-04-24 08:55 | P.HP_ITS ---
<Statement entered by Carson Matamoros MD - 04/24/23 19:28> Patient seen and examined, agree with assessment and plan below. History of MRDD and lives in residential. History of recurrent SBO and does not complain of pain. Developed nausea and emesis with elevated pulse. To ER and CT with SBO. NG placed. Contacted surgeon who recommended transfer to tertiary facility. A ccepted but no beds and admitted. Diagnosis: 1. SBO 2. Nausea and vomiting 3. Seizure disorder 4. Moderate intellectual disability 5. Moderate developmental delay H&P: HPI History of Present Illness Chief complaint: ABDOMINAL PAIN Small Bowel Obstruction Narrative: 04/24/23 0850 This is a 68-year-old male patient with a past medical history significant for MRDD and developmental delay, seizure disorder, and recurrent small bowel obstructions treated both surgically and conservatively in the past; who presented to the ED yesterday afternoon complaining of recurrent nausea and vomiting. Diarrhea was also reported but no fevers or urinary symptoms. He was recently admitted to [facility] for small bowel obstruction that was treated conservatively and he was discharged back to his residential 3 days ago. The residential staff/family were reportedly unhappy with the care he received at [facility]. Workup in the ED revealed mild tachycardia (109), leukocytosis (19.4) but no evidence of fever or infectious source, and lactic acidosis (3.0). CT of the abdomen and pelvis with IV contrast revealed a small bowel obstruction suspected at the previous bowel anastomosis site, with a possible additional SBO distal to the anastomosis. An NG tube was placed and general surgery was contacted at this facility. Chest x-ray obtained after NG tube placement revealed adequate placement and no evidence of cardiopulmonary decompensation. The general surgeon believes this patient requires a higher level of care and recommended transfer to a tertiary care facility. The patient was accepted at [facility] by Dr. Kinsey hospitalist, however there is a bed hold at this time. The patient was admitted to the hospitalist service in observation last night pending bed availability at [facility]. On further review of the pt's medically necessary inpatient treatments, we have changed the admission order to full inpatient admission today. At the time of my exam the patient is resting comfortably in bed. He answers questions appropriately within the limits of his cognitive impairment. He is cooperative with exam. He denies abdominal pain at this time and is able to leave the NG tube in place to his right nare. Nursing notes large volume output after the NG tube was placed last night. No further emesis has been documented since the NG tube was inserted. He remains n.p.o. pending transfer. He we have converted his Keppra to IV Keppra while the patient is n.p.o. and he is re ceiving IV fluids for hydration. Review of Systems ROS Narrative The pt remembers vomiting yesterday. He currently denies N/V or abdominal pain. Status of ROS 10 or more systems reviewed and unremark able except as noted in history and below [facility] Medical History (Updated 04/24/23 @ 11:11 by Libra Braxton NP) GERD (gastroesophageal reflux disease) ?K21.9 - Gastro-esophageal reflux disease without esophagitis (ICD-10) Intellectual developmental disorder, moderate ?F71 - Moderate intellectual disabilities (ICD-10) Seizure disorder ?G40.909 - Epilepsy, unspecified, not intractable, without status epilepticus (ICD-10) Moderate developmental delay ?R62.50 - Unspecified lack of expected normal physiological development in childhood (ICD-10) Generalized intestinal dysmotility ?K59.89 - Other specified functional intestinal disorders (ICD-10) Oropharyngeal dysphagia ?R13.12 - Dysphagia, oropharyngeal phase (ICD-10) Large bowel obstruction ?K56.609 - Unspecified intestinal obstruction, unspecified as to partial versus complete obstruction (ICD-10) Insomnia ?G47.00 - Insomnia, unspecified (ICD-10) Vitamin D deficiency ?E55.9 - Vitamin D deficiency, unspecified (ICD-10) Post-void dribbling ?N39.43 - Post-void dribbling (ICD-10) Nocturia ?R35.1 - Nocturia (ICD-10) Blepharitis ?H01.009 - Unspecified blepharitis unspecified eye, unspecified eyelid (ICD- 10) Hyperlipemia ?E78.5 - Hyperlipidemia, unspecified (ICD-10) BPH w urinary obs/LUTS ?N40.1 - Benign prostatic hyperplasia with lower urinary tract symptoms (ICD- 10) ?N13.8 - Other obstructive and reflux uropathy (ICD-10) Hernia ?K46.9 - Unspecified abdominal hernia without obstruction or gangrene (ICD- 10) Glaucoma ?H40.9 - Unspecified glaucoma (ICD-10) Cystocele Eczema ?L30.9 - Dermatitis, unspecified (ICD-10) Osteoarthritis ?M19.90 - Unspecified osteoarthritis, unspecified site (ICD-10) Hearing loss ?H91.90 - Unspecified hearing loss, unspecified ear (ICD-10) Social History Smoking status: Never smoker Highest level of school completed/degree received: never attended/kindergarten only Meds Home Medications and Allergies Home Medications Medication Instructions Recorded Confirmed Type lamotrigine 200 mg tablet 400 mg PO QAM 11/14/22 04/23/23 History lamotrigine 200 mg tablet 600 mg PO BEDTIME 11/14/22 04/23/23 History (Lamictal) latanoprost 0.005 % eye drops, 1 drp ophthalmic (eye) QPM 11/14/22 04/23/23 History emulsion levetiracetam 1,000 mg tablet 1,500 mg PO .MORNING 11/14/22 04/23/23 History (Keppra) levetiracetam 1,000 mg tablet 2,000 mg PO BEDTIME 11/14/22 04/23/23 History (Keppra) oxybutynin chloride 10 mg 10 mg PO DAILY 11/14/22 04/23/23 History tablet,extended release 24 hr pantoprazole 40 mg tablet,delayed 40 mg PO DAILY 11/14/22 04/23/23 History release (Protonix) polyethylene glycol 3350 17 gram 17 g PO DAILY 11/14/22 04/23/23 History oral powder packet (Miralax) primidone 250 mg tablet 375 mg PO BEDTIME 11/14/22 04/23/23 History primidone 50 mg tablet 250 mg PO QDAY 11/14/22 04/23/23 History sennosides 8.6 mg capsule (senna) 8.6 mg PO BID 11/14/22 04/23/23 History tamsulosin 0.4 mg capsule (Flomax) 0.4 mg PO BID 11/14/22 04/23/23 History acetaminophen 500 mg capsule 500 mg PO Q6H PRN fever or pain 04/23/23 04/23/23 History finasteride 5 mg tablet 5 mg PO DAILY 04/23/23 04/23/23 History hydroxyzine HCl 25 mg tablet 25 mg PO BID PRN itching 04/23/23 04/23/23 History lacosamide 150 mg tablet 150 mg PO BID 04/23/23 04/23/23 History loperamide 2 mg tablet 2 mg PO BID PRN loose stool 04/23/23 04/23/23 History lorazepam 0.5 mg tablet (Ativan) 0.5 mg PO Q8H PRN seizure activity 04/23/23 History melatonin 3 mg capsule 3 mg PO QPM PRN sleep 04/23/23 04/23/23 History ondansetron 4 mg disintegrating 4 mg PO Q6H PRN nausea and vomiting 04/23/23 04/23/23 History tablet benzonatate 100 mg capsule 100 mg PO .Q8 PRN cough 04/24/23 04/24/23 History calcium carbonate 500 mg calcium 500 mg PO BID 04/24/23 04/24/23 History (1,250 mg) chewable tablet cholecalciferol (vitamin D3) 25 25 mcg PO DAILY 04/24/23 04/24/23 History mcg (1,000 unit) tablet cyanocobalamin (vitamin B-12) 1,000 mcg PO DAILY 04/24/23 04/24/23 History 1,000 mcg tablet diazepam 12.5 mg-15 mg-17.5 mg-20 12.5 - 20 mg SD Q15M PRN seizure 04/24/23 04/24/23 History mg rectal kit activity hydrocortisone 2.5 % topical cream 1 applic topical BID PRN skin 04/24/23 04/24/23 History irritation magnesium oxide 400 mg (241.3 mg 400 mg PO DAILY 04/24/23 04/24/23 History magnesium) tablet meclizine 25 mg tablet 25 mg PO DAILY 04/24/23 04/24/23 History trazodone 50 mg tablet 50 mg PO .qhs 04/24/23 04/24/23 History white petrolatum-mineral oil 94 1 applic ophthalmic (eye) .HS 04/24/23 04/24/23 History %-3 % eye ointment (Systane Nighttime) Allergies Allergy/AdvReac Type Severity Reaction Status Date / Time clindamycin Allergy Unknown Verified 11/14/22 07:52 Penicillins Allergy Unknown Verified 11/14/22 07:52 Exam Constitutional Vital Signs, click to edit/add: Last Vital Signs Temp 98.1 F 04/24/23 07:33 Pulse 107 H 04/23/23 23:17 Resp 10 L 04/24/23 04:30 BP 98/65 04/24/23 07:36 Pulse Ox 83 L 04/24/23 07:36 O2 Del Method Room Air 04/24/23 07:33 Common normals: no apparent distress, alert and well nourished General appearance: cooperative Orientation/consciousness: Yes awake HENMT Common normals: normocephalic, head/scalp atraumatic, hearing grossly normal bilaterally, external nose normal and moist oral mucous membranes Eye Common normals: PERRL, EOMs intact bilaterally, conjunctivae normal and no scleral icterus Alignment: alignment normal Chest Common normals: inspection of chest normal Chest: symmetrical chest wall rise Respiratory Common normals: normal respiratory effort, no retractions, no use of accessory muscles and clear to auscultation bilaterally Effort & inspection: able to speak in complete sentences Auscultation: diminished lung sounds (BLL) Cardio Common normals: no JVD, regular rate, regular rhythm, S1 normal heart sound, S2 normal heart sound, no gallops, no clicks, no murmurs, no rub and peripheral pulses 2+ throughout GI Common normals: soft to palpation, non-tender, no hepatosplenomegaly, no masses and no bruits Inspection: normal to inspection; no abdominal distension Auscultation: hypoactive bowel sounds Palpation: soft and no hepatosplenomegaly Other: NGT to R nare Bladder/kidney exam: bladder normal to palpation Extremity Common normals: normal capillary refill and no pedal edema General: normal exam except as noted; no clubbing and no cyanosis Neuro [place] Coma Scale: GCS not evaluated Common normals: CN's II-XII intact bilaterally, moves all extremities, no focal motor deficits and no sensory deficits noted Speech: speech normal Motor exam: strength 5/5 throughout Psych Common normals: affect normal and activity/motor behavior normal Appearance: grossly normal Speech: rapid Thought process: other (Chronic MRDD, impaired cognition) Memory/cognition: memory grossly intact Insight: poor Judgement: poor Results Labs Labs: Short CBC 04/23/23 04/24/23 Range/Units 15:02 04:22 WBC 19.4 H 12.7 H (4.0-11.0) 10^3/uL Hgb 13.0 L 10.8 L (14.0-18.0) g/dL Hct 41.0 L 34.8 L (42.0-54.0) % Plt Count 449 333 (150-450) 10^3/uL BMP 04/23/23 04/24/23 15:02 04:22 Sodium 143 144 Potassium 4.4 4.1 Chloride 105 110 H Carbon Dioxide 23.6 22.9 BUN 28.0 H 32.0 H Creatinine 1.58 H 1.10 Glucose 121 H 118 H Calcium 10.3 H 8.8 Liver Function 04/23/23 Range/Units 15:02 Total Bilirubin 0.2 (0.2-1.0) mg/dL AST 20 (15-37) U/L ALT 43 (16-63) U/L Alkaline Phosphatase 151 H (46-116) U/L Albumin 3.9 (3.4-5.0) g/dL Pulse Oximetry Attestation: I have reviewed the pertinent pulse oximetry results. Imaging Chest x-ray: Attestation: I have reviewed the pertinent imaging results. Radiologist's impression: IMPRESSION: Relatively satisfactory position of the NG tube. The visualized lung is clear. There is no evidence of overt cardiac decompensation. CT Scan - Abd/Pelvis: Attestation: I have reviewed the pertinent imaging results. Radiologist's impression: IMPRESSION: Findings concerning for at least partial small bowel obstruction. Distended loops of small bowel are most prominent in the left hemiabdomen proximal to the small bowel anastomosis. The anastomosis appears to be grossly patent however. Small bowel loops are dilated distal to the anastomosis with collapse of distal small bowel, potentially additional site of obstruction. An abrupt distal transition point is not definitively characterized. Prominent gastric distention. Cystitis. Assessment and Plan Assessment and Plan (1) Small bowel obstruction: Assessment and Plan: ACUTE * Adm inpatient pending bed availability at [facility] (initially adm to obs last night) * Maintain NPO * Maintain NGT to LIS * IVP Zofran for nausea * D5.45 IVF at 125/hr for hydration * Daily CBC, CMP until transfer (2) Cystitis: Assessment and Plan: ACUTE-SUSPECTED * Suspected on CT imaging w/ thickened bladder wall * UA still pending collection * Leukocytosis noted on ED labs, but improving/resolving without ABX administration. Afebrile * Consider adding IVPB Rocephin pending clinical course/UA results (3) Seizure disorder: Assessment and Plan: CHRONIC * Seizure precautions * Continue home Keppra w/ IV preparation * Unable to administer home Lamictal (4) Moderate developmental delay: Assessment and Plan: CHRONIC * Stable at baseline * Resident at [facility] (5) Glaucoma: Assessment and Plan: CHRONIC * Continue home latanoprost (6) GERD (gastroesophageal reflux disease): Assessment and Plan: CHRONIC * Continue PPI w/ IV administration
[2023-04-24] MEDS: HEPARIN SODIUM (PORCINE) 5,000 UNIT/ML VIAL 5000 UNIT SUBQ (09:10)
[2023-04-24] MEDS: LEVETIRACETAM 1,500 MG in 0.9 % SODIUM CHLORIDE 100 ML 460 MG IV (09:10)
--- NOTE | 2023-04-24 10:26 | CM.NOTE ---
Rounds made with Dr. Matamoros, pt awaiting bed at higher level of care.
[2023-04-24 11:33] LABS: Bilirubin Urine NEGATIVE (NEGATIVE); Blood Urine SMALL (NEGATIVE); Clarity Urine SL CLOUDY (CLEAR); Color Urine YELLOW (YELLOW); Glucose Urine UA NEGATIVE (NEGATIVE); Ketones Urine NEGATIVE (NEGATIVE); Leukocyte Esterase Urine SMALL (NEGATIVE); Nitrite Urine POSITIVE (NEGATIVE); Protein Urine 30 mg/dL (NEG/TRACE); Urobilinogen Urine 0.2 EU/dL (0.2-1.0); pH Urine 5.5 (5.0-9.0)
[2023-04-24 11:34] LABS: Urine Microscopic Indicated YES
[2023-04-24 11:40] LABS: Bacteria Urine LARGE #/HPF (NONE SEEN); Cast Seen? NONE SEEN #/LPF (NONE SEEN); Crystals Seen? None Seen #/HPF (None Seen); Mucus Urine NONE SEEN (NONE SEEN); Squamous Epithelial Cell Urine NONE SEEN #/LPF (NONE/RARE); Urine Culture Indicated YES; WBC Urine 20-50 #/HPF (NONE SEEN)
== END 2023-04-24 21:30 | disposition short-term general hospital (02) | DRG 389 ==
LOC: ER 18:12 → ICU 20:59
PROVIDERS: Physician Assistant; Registered Nurse; Admitting Provider Family Medicine; Emergency Provider Emergency Medicine; PCP Family Medicine; Visit Provider Family Medicine
DX: K56.609 Unspecified intestinal obstruction, unspecified as to partial versus complete obstruction (principal); N39.0 Urinary tract infection, site not specified; B96.20 Unspecified Escherichia coli [E. coli] as the cause of diseases classified elsewhere; G40.909 Epilepsy, unspecified, not intractable, without status epilepticus; R62.50 Unspecified lack of expected normal physiological development in childhood; F71 Moderate intellectual disabilities; R11.2 Nausea with vomiting, unspecified; K21.9 Gastro-esophageal reflux disease without esophagitis; K59.89 Other specified functional intestinal disorders; G47.00 Insomnia, unspecified; N40.1 Benign prostatic hyperplasia with lower urinary tract symptoms; R35.1 Nocturia; E78.5 Hyperlipidemia, unspecified; H40.9 Unspecified glaucoma; M19.90 Unspecified osteoarthritis, unspecified site; H91.90 Unspecified hearing loss, unspecified ear
CPT/HCPCS: 36415; 71045; 74177; 80048; 80053; 81001; 82800; 83605; 83690; 84145; 84484; 85025; 87040; 87086; 87150; 87186; 93005; 96361; 96365; 96372; 96375; 99285; G0378; J1953; J2060; J2405; Q9967

== ENCOUNTER 2023-04-30 10:13 | Emergency (ER) | payer MEDICARE, MEDICAID, SELFPAY ==
[2023-04-30] VITALS (77 sets, daily range): BP systolic 89–128; BP diastolic 55–86; PULSE 84–108; RESP 13–38; TEMP 36.4; O2SAT 68–97; BMI 25.1
--- NOTE | 2023-04-30 10:20 | ECG_ITS ---
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
[2023-04-30] MEDS: 0.9 % SODIUM CHLORIDE 1,000 ML 1000 ML IV ×2 (10:38→13:07)
[2023-04-30 10:40] LABS: Basophils Absolute Auto 0.1 10^3/uL (0.0-0.1); Basophils Percent Auto 0.4 % (0.2-2.0); Eosinophils Absolute Auto 0.1 10^3/uL (0.0-0.7); Eosinophils Percent Auto 0.5 % (0.9-7.0); Hematocrit 36.9 % (42.0-54.0); Hemoglobin 11.5 g/dL (14.0-18.0); Immature Granulocytes Abs Auto 0.07 10^3/uL (0.00-0.03); Immature Granulocytes Pct Auto 0.6 % (0.0-0.5); Lymphocytes Percent Auto 7.7 % (20.5-60.0); Mean Corpuscular HGB Conc 31.2 g/dL (29.9-35.2); Mean Corpuscular Hemoglobin 32.8 pg (25.9-34.0); Mean Corpuscular Volume 105.1 fL (80.0-94.0); Mean Platelet Volume 9.2 fL (9.5-13.5); Monocytes Absolute Auto 0.6 10^3/uL (0.3-0.8); Monocytes Percent Auto 4.6 % (1.7-12.0); Neutrophils Absolute Auto 10.6 10^3/uL (1.4-6.5); Neutrophils Percent Auto 86.2 % (43.0-75.0); Platelet Count 273 10^3/uL (150-450); Red Blood Count 3.51 10^6/uL (4.70-6.10); Red Cell Distribution Width 13.1 % (11.0-15.0); White Blood Count 12.3 10^3/uL (4.0-11.0)
[2023-04-30 11:01] LABS: Alanine Aminotransferase 41 U/L (16-63); Albumin Globulin Ratio 0.8; Albumin Level 3.3 g/dL (3.4-5.0); Alkaline Phosphatase 126 U/L (46-116); Anion Gap 14.5; Aspartate Amino Transferase 15 U/L (15-37); BUN Creatinine Ratio 13.1; Bilirubin Total 0.2 mg/dL (0.2-1.0); Calcium 8.9 mg/dL (8.5-10.1); Carbon Dioxide 23.1 mmol/L (21.0-32.0); Chloride 108 mmol/L (98-107); Estimated GFR (African America 33 (>=60); Estimated GFR (Non-African Ame 28 (>=60); Globulin 4.3 g/dL; Glucose 145 mg/dL (74-106); Magnesium 1.7 mg/dL (1.8-2.4); Potassium 3.6 mmol/L (3.5-5.1); Sodium 142 mmol/L (136-145); Total Protein 7.6 g/dL (6.4-8.2); Troponin I High Sensitivity <4.0 pg/mL (4.0-76.1)
[2023-04-30 11:06] LABS: INR 1.12; Prothrombin Time 11.8 sec (9.0-11.6)
[2023-04-30 11:09] LABS: Lactate/Lactic Acid 2.8 mmol/L (0.4-2.0)
--- NOTE | 2023-04-30 12:47 | CT_ITS ---
The [address] [address] Patient Name: CHIDI TAYLOR MRN: [id number] date: 1955 Sex: M Assigned Patient Location: ER Current Patient Location: ER Accession/Order Number: [id number] Exam Date: 04/30/2023 12:43 Report Date: 04/30/2023 13:22 At the request of: CÉSAR GAUTHIER Procedure: CT abdomen pelvis wo con CT abdomen pelvis wo con, 04/30/2023 12:43 PM EST INDICATION: Small bowel obstruction COMPARISON: CT of the abdomen and pelvis 04/23/2023 TECHNIQUE: Axial images of the abdomen and pelvis were obtained without IV contrast. Multiplanar reformatted images were generated and reviewed as needed. Dose reduction techniques were achieved by using automated exposure control and/or adjustment of mA and/or kV according to patient size and/or use of iterative reconstruction technique. FINDINGS: Subsegmental atelectasis/scar within the lingula. Hypoventilatory change left lung base. No effusion. Liver, gallbladder, pancreas, spleen and adrenals unremarkable on a noncontrast scan. No hydronephrosis or nephrolithiasis. Chronic calcified left perinephric collection, unchanged. No ureteral or urinary bladder calculi. No aortic aneurysm. Air-fluid level within a grossly distended gastric lumen. The gastric antrum, duodenum and proximal jejunum are normal caliber. Dilatation within dilated small bowel originating in the left mid abdomen with inspissated content, pneumatosis and caliber change at the surgical anastomosis within the left mid abdomen. Distal small bowel with in the right abdomen is collapsed to the level of the ileocecal valve. Large amount of colonic air at the hepatic flexure and proximal transverse colon. No pneumoperitoneum or ascites. No acute fracture. Spondylosis. CT/CT abdomen pelvis wo con IMPRESSION: 1. High-grade small bowel obstruction with zone of transition at surgical anastomosis in the left mid abdomen. Pneumatosis intestinalis within small bowel in the lower abdomen and upper pelvis. No pneumoperitoneum or ascites at this time. Lack of IV contrast limits evaluation. Electronically authenticated by: CARLIN MONTOYA Date: 04/30/2023 13:22
--- NOTE | 2023-04-30 13:20 | ED.ABDPAIN1 ---
HPI - Abdominal Pain General Chief Complaint: Abdominal Pain Stated Complaint: DIARRHEA Time Seen by Provider: 04/30/23 10:19 Source: patient Mode of arrival: ambulance History of Present Illness HPI narrative: The patient have a history of MRDD presenting to us from assisted living after he was discharged yesterday from [facility] after being worked up for the last few days for possible small bowel obstruction, the patient still continued to not eat or drink and he was hypotensive according to the EMS upon arrival with a possible decrease in his mentation although upon arrival the patient was within normal he did had his blood pressure in the low 90s. The patient did not eat or drink since yesterday and according to his sister who is the guardian that he was discharged yesterday after they did an x-ray and make sure that he has no more obstruction Related Data Home Medications ?Medication ?Instructions ?Recorded ?Confirmed lamotrigine 200 mg tablet 400 mg PO QAM 11/14/22 05/25/23 lamotrigine 200 mg tablet 600 mg PO BEDTIME 11/14/22 05/25/23 (Lamictal) latanoprost 0.005 % eye drops, 1 drp ophthalmic (eye) QPM 11/14/22 04/23/23 emulsion levetiracetam 1,000 mg tablet 2,000 mg PO BEDTIME 11/14/22 05/25/23 (Keppra) oxybutynin chloride 10 mg 10 mg PO DAILY 11/14/22 05/25/23 tablet,extended release 24 hr pantoprazole 40 mg tablet,delayed 40 mg PO DAILY 11/14/22 04/23/23 release (Protonix) polyethylene glycol 3350 17 gram 17 g PO DAILY 11/14/22 04/23/23 oral powder packet (Miralax) primidone 250 mg tablet 375 mg PO BEDTIME 11/14/22 05/25/23 sennosides 8.6 mg capsule (senna) 8.6 mg PO BID 11/14/22 05/25/23 tamsulosin 0.4 mg capsule (Flomax) 0.4 mg PO BID 11/14/22 05/25/23 acetaminophen 500 mg capsule 500 mg PO Q6H PRN fever or pain 04/23/23 05/25/23 finasteride 5 mg tablet 5 mg PO DAILY 04/23/23 05/25/23 hydroxyzine HCl 25 mg tablet 25 mg PO BID PRN itching 04/23/23 04/23/23 lacosamide 150 mg tablet 150 mg PO BID 04/23/23 05/25/23 lorazepam 0.5 mg tablet (Ativan) 0.5 mg PO Q8H PRN seizure activity 04/23/23 05/25/23 melatonin 3 mg capsule 3 mg PO QPM PRN sleep 04/23/23 05/25/23 ondansetron 4 mg disintegrating 4 mg PO Q6H PRN nausea and vomiting 04/23/23 05/25/23 tablet albuterol sulfate 90 mcg/actuation 2 inh inhalation Q4H PRN shortness 04/24/23 04/24/23 aerosol inhaler (ProAir HFA) of breath or wheezing benzonatate 100 mg capsule 100 mg PO .Q8 PRN cough 04/24/23 04/24/23 calcium carbonate 500 mg calcium 500 mg PO BID 04/24/23 04/24/23 (1,250 mg) chewable tablet cholecalciferol (vitamin D3) 25 25 mcg PO DAILY 04/24/23 04/24/23 mcg (1,000 unit) tablet cyanocobalamin (vitamin B-12) 1,000 mcg PO DAILY 04/24/23 04/24/23 1,000 mcg tablet diazepam 12.5 mg-15 mg-17.5 mg-20 20 mg NV Q15M PRN seizure activity 04/24/23 04/24/23 mg rectal kit hydrocortisone 2.5 % topical cream 1 applic topical BID PRN skin 04/24/23 04/24/23 irritation inulin-chromium picolinate 2 2 tab PO DAILY 04/24/23 04/24/23 gram-100 mcg chewable tablet levetiracetam 750 mg tablet 1,500 mg PO QAM 04/24/23 05/25/23 (Keppra) magnesium oxide 400 mg (241.3 mg 400 mg PO DAILY 04/24/23 05/25/23 magnesium) tablet meclizine 25 mg tablet 25 mg PO DAILY 04/24/23 05/25/23 primidone 250 mg tablet 250 mg PO QAM 04/24/23 04/24/23 white petrolatum-mineral oil 94 1 applic ophthalmic (eye) .HS 04/24/23 05/25/23 %-3 % eye ointment (Systane Nighttime) Allergies Allergy/AdvReac Type Severity Reaction Status Date / Time clindamycin Allergy Unknown Verified 05/25/23 00:17 Penicillins Allergy Unknown Verified 05/25/23 00:17 Review of Systems ROS Status of ROS 10 or more systems reviewed and unremarkable except as noted in history and below [facility] Medical History (Updated 05/25/23 @ 01:10 by Jay Hall MD) GERD (gastroesophageal reflux disease) ?K21.9 - Gastro-esophageal reflux disease without esophagitis (ICD-10) Intellectual developmental disorder, moderate ?F71 - Moderate intellectual disabilities (ICD-10) Seizure disorder ?G40.909 - Epilepsy, unspecified, not intractable, without status epilepticus (ICD-10) Moderate developmental delay ?R62.50 - Unspecified lack of expected normal physiological development in childhood (ICD-10) Generalized intestinal dysmotility ?K59.89 - Other specified functional intestinal disorders (ICD-10) Oropharyngeal dysphagia ?R13.12 - Dysphagia, oropharyngeal phase (ICD-10) Large bowel obstruction ?K56.609 - Unspecified intestinal obstruction, unspecified as to partial versus complete obstruction (ICD-10) Insomnia ?G47.00 - Insomnia, unspecified (ICD-10) Vitamin D deficiency ?E55.9 - Vitamin D deficiency, unspecified (ICD-10) Post-void dribbling ?N39.43 - Post-void dribbling (ICD-10) Nocturia ?R35.1 - Nocturia (ICD-10) Blepharitis ?H01.009 - Unspecified blepharitis unspecified eye, unspecified eyelid (ICD-10) Hyperlipemia ?E78.5 - Hyperlipidemia, unspecified (ICD-10) BPH w urinary obs/LUTS ?N40.1 - Benign prostatic hyperplasia with lower urinary tract symptoms (ICD-10) ?N13.8 - Other obstructive and reflux uropathy (ICD-10) Hernia ?K46.9 - Unspecified abdominal hernia without obstruction or gangrene (ICD-10) Glaucoma ?H40.9 - Unspecified glaucoma (ICD-10) Cystocele Eczema ?L30.9 - Dermatitis, unspecified (ICD-10) Osteoarthritis ?M19.90 - Unspecified osteoarthritis, unspecified site (ICD-10) Hearing loss ?H91.90 - Unspecified hearing loss, unspecified ear (ICD-10) Social History Smoking status: Never smoker Highest level of school completed/degree received: never attended/kindergarten only Exam Narrative Exam Narrative: Nurses notes and vital signs reviewed and patient is not hypoxic. General: Well-appearing and in no apparent distress. Skin: Warm, dry, no pallor noted. No rash. Head: Normocephalic, atraumatic. Neck: Supple, non-tender. Eye: Pupils are equal, round and EOMI. No scleral icterus. Ears, Nose, Mouth, and Throat: TM are clear, no nasal mucosal hypertrophy. Oral mucosa is moist, no posterior oropharynx erythema, uvula is mid-line Cardiovascular: Regular Rate and Rhythm without murmur, gallop or rub. Respiratory: No accessory muscle use or respiratory distress. Lungs are clear to auscultation, no wheezing, rales or rhonchi Chest Wall: no tenderness Back: No midline thoracic or lumbar vertebral tenderness. No CVA tenderness Musculoskeletal: normal ROM, no calf or popliteal tenderness, no lower extremity edema/swelling GI: Abdomen distended not distress on exam No tenderness to palpation. No rebound, guarding, or rigidity noted. Neurological: Alert Constitutional Vital Signs, click to edit/add: Last Vital Signs Temp 97.5 F L 04/30/23 10:16 Pulse 91 H 04/30/23 20:40 Resp 20 04/30/23 20:40 BP 97/65 04/30/23 20:30 Pulse Ox 92 L 04/30/23 20:40 Course Vital Signs Vital signs: Vital Signs Pulse Rate 106 H 04/30/23 10:15 Respiratory Rate 26 H 04/30/23 10:15 Pulse Oximetry 82 L 04/30/23 10:15 Temperature 97.5 F L 04/30/23 10:16 Pulse Rate 91 H 04/30/23 20:40 Respiratory Rate 20 04/30/23 20:40 Blood Pressure 97/65 04/30/23 20:30 Pulse Oximetry 92 L 04/30/23 20:40 MDM - Abdominal Pain MDM Narrative Medical decision making narrative: Patient EKG upon presentation showing sinus rhythm with no ST elevation or depression CBC shows mild leukocytosis with a chemistry showing acute kidney injury in addition to the fact the patient have a mild hypomagnesemia CAT scan of the abdomen shows a high-grade small bowel obstruction with possible pneumatosis intestinalis The patient will be transferred back to [facility] hospital I did speak with [facility] and accepted pt for Dr Kinsey as small bowel obstruction acute kidney injury The patient had NG tube applied and he will have his magnesium replaced and will also be provided with IV Flagyl Lab Data Labs: Lab Results 04/30/23 04/30/23 Range/Units 10:30 13:40 WBC 12.3 H (4.0-11.0) 10^3/uL RBC 3.51 L (4.70-6.10) 10^6/uL Hgb 11.5 L (14.0-18.0) g/dL Hct 36.9 L (42.0-54.0) % MCV 105.1 H (80.0-94.0) fL MCH 32.8 (25.9-34.0) pg MCHC 31.2 (29.9-35.2) g/dL RDW 13.1 (11.0-15.0) % Plt Count 273 (150-450) 10^3/uL MPV 9.2 L (9.5-13.5) fL Neut % (Auto) 86.2 H (43.0-75.0) % Lymph % (Auto) 7.7 L (20.5-60.0) % [place] % (Auto) 4.6 (1.7-12.0) % Eos % (Auto) 0.5 L (0.9-7.0) % Baso % (Auto) 0.4 (0.2-2.0) % Neut # (Auto) 10.6 H (1.4-6.5) 10^3/uL Lymph # (Auto) 1.0 L (1.2-3.8) 10^3/uL [place] # (Auto) 0.6 (0.3-0.8) 10^3/uL Eos # (Auto) 0.1 (0.0-0.7) 10^3/uL Baso # (Auto) 0.1 (0.0-0.1) 10^3/uL Abs Immat Gran (auto) 0.07 H (0.00-0.03) 10^3/uL Imm/Tot Granulo (auto) 0.6 H (0.0-0.5) % PT 11.8 H (9.0-11.6) sec INR 1.12 Sodium 142 (136-145) mmol/L Potassium 3.6 (3.5-5.1) mmol/L Chloride 108 H (98-107) mmol/L Carbon Dioxide 23.1 (21.0-32.0) mmol/L Anion Gap 14.5 BUN 31.0 H (7.0-18.0) mg/dL Creatinine 2.37 H (0.70-1.30) mg/dL Est GFR ( Amer) 33 L (>=60) Est GFR (Non-Af Amer) 28 L (>=60) BUN/Creatinine Ratio 13.1 Glucose 145 H (74-106) mg/dL Lactate 2.8 H* 1.9 (0.4-2.0) mmol/L Calcium 8.9 (8.5-10.1) mg/dL Magnesium 1.7 L (1.8-2.4) mg/dL Total Bilirubin 0.2 (0.2-1.0) mg/dL AST 15 (15-37) U/L ALT 41 (16-63) U/L Alkaline Phosphatase 126 H (46-116) U/L Troponin I High Sens <4.0 L (4.0-76.1) pg/mL Total Protein 7.6 (6.4-8.2) g/dL Albumin 3.3 L (3.4-5.0) g/dL Globulin 4.3 g/dL Albumin/Globulin Ratio 0.8 Discharge Plan Discharge Chief Complaint: Abdominal Pain Clinical Impression: JOSÉ MIGUEL (acute kidney injury), SBO (small bowel obstruction), Hypomagnesemia Patient Disposition: [facility] Time of Disposition Decision: 15:30 Discharge location: [facility] Condition: Good Mode of Transportation: EMS Discharge Date/Time: 04/30/23 21:00
[2023-04-30 14:17] LABS: Lactate/Lactic Acid 1.9 mmol/L (0.4-2.0)
--- NOTE | 2023-04-30 14:39 | XR_ITS ---
The [address] [address] Patient Name: CHIDI TAYLOR MRN: [id number] date: 1955 Sex: M Assigned Patient Location: ER Current Patient Location: ER Accession/Order Number: [id number] Exam Date: 04/30/2023 14:45 Report Date: 04/30/2023 15:15 At the request of: CÉSAR GAUTHIER Procedure: XR chest 1V EXAMINATION: XR chest 1V HISTORY: post ng tube COMPARISON: 04/23/2023 TECHNIQUE: AP portable erect FINDINGS: LUNGS: No significant pulmonary parenchymal abnormalities. VASCULATURE: No increased pulmonary vasculature. PLEURA: No pneumothorax, effusion, or pleural thickening. CARDIAC: No cardiomegaly or cardiac silhouette abnormality. MEDIASTINUM: No visible mass or adenopathy. BONES: No fracture or visible bone lesion. OTHER: Enteric tube extends off the field of view. The last sidehole projects over a distended stomach. Gaseous distention of the large bowel XR/XR chest 1V IMPRESSION: Enteric tube tip likely within a distended stomach Electronically authenticated by: DAVID TSANG Date: 04/30/2023 15:15
[2023-04-30] MEDS: MAGNESIUM SULFATE IN WATER 2 GM/50 ML PREMIX IV (16:42)
[2023-04-30] MEDS: METRONIDAZOLE/SODIUM CHLORIDE 500 MG/100 ML PREMIX 100 MG IV (16:42)
== END 2023-04-30 21:00 | disposition short-term general hospital (02) ==
PROVIDERS: Emergency Provider Emergency Medicine; PCP Family Medicine
DX: K56.609 Unspecified intestinal obstruction, unspecified as to partial versus complete obstruction (principal); Z79.899 Other long term (current) drug therapy; N17.9 Acute kidney failure, unspecified; E83.42 Hypomagnesemia
CPT/HCPCS: 36410; 36415; 71045; 74176; 80053; 83605; 83735; 84484; 85025; 85610; 93005; 96361; 96365; 96366; 96368; 99285; C1887; J1836; J3475

== ENCOUNTER 2023-05-10 08:22 | Emergency (ER) | payer MEDICARE, MEDICAID, SELFPAY ==
[2023-05-10 08:25] VITALS: BP 92/58; PULSE 85; RESP 18; TEMP 36.4; O2SAT 99; BMI 32.3
--- NOTE | 2023-05-10 08:29 | CT_ITS ---
The [address] [address] Patient Name: CHIDI TAYLOR MRN: [facility]:[id number] date: 1955 Sex: M Assigned Patient Location: ER Current Patient Location: ER Accession/Order Number: [id number] Exam Date: 05/10/2023 08:35 Report Date: 05/10/2023 09:11 At the request of: JASBIR HYDE Procedure: CT cervical spine wo con EXAMINATION: CT cervical spine wo con HISTORY: Fall ; fell striking back of head COMPARISON: No relevant comparison available. TECHNIQUE: Axial, Coronal, and Sagittal images were created without IV contrast. Dose reduction techniques were achieved by using automated exposure control and/or adjustment of mA and/or kV according to patient size and/or use of iterative reconstruction technique. FINDINGS: VERTEBRAL BODIES: No fracture or spondylolisthesis. Large anterior degenerative endplate osteophytes at C3-4 and C4-5. FACET JOINTS: Multilevel moderate-marked degenerative changes predominantly involving right side. No disruption or abnormal widening. DISCS: Moderate-marked narrowing C3-4 through C6-7. Degenerative disc disease, uncovertebral joint spurring, and facet arthropathy result in multilevel moderate-marked foramen narrowing and moderate central canal narrowing. CENTRAL CANAL: No evidence of hemorrhage. PARASPINAL AREA: No visible mass. CT/CT cervical spine wo con IMPRESSION: 1. No appreciable acute abnormality. 2. Multilevel moderate-marked degenerative changes resulting in central canal and foraminal narrowing. Electronically authenticated by: LIZZ MCCOY Date: 05/10/2023 09:11
--- NOTE | 2023-05-10 08:30 | ED_ITS ---
HPI - Fall General Chief Complaint: Fall Stated Complaint: fall Time Seen by Provider: 05/10/23 08:29 Source: medical record and other Source comment: EMS Mode of arrival: ambulance Limitations: altered mental status Limitations comment: mrdd History of Present Illness HPI Narrative: This patient was brought to us by EMS from a [facility]. He is a frequent visi tor here. He he does have learning disorder. They placed him in a [place] collar because he had an observed fall at his facility today. There is no loss of consciousness. There is no bleeding. He has no new symptomatology but because the mechanism of injury they brought him to the ER. Related Data Home Medications Medication Instructions Recorded Confirmed lamotrigine 200 mg tablet 400 mg PO QAM 11/14/22 04/23/23 lamotrigine 200 mg tablet 600 mg PO BEDTIME 11/14/22 04/23/23 (Lamictal) latanoprost 0.005 % eye drops, 1 drp ophthalmic (eye) QPM 11/14/22 04/23/23 emulsion levetiracetam 1,000 mg tablet 2,000 mg PO BEDTIME 11/14/22 04/23/23 (Keppra) oxybutynin chloride 10 mg 10 mg PO DAILY 11/14/22 04/23/23 tablet,extended release 24 hr pantoprazole 40 mg tablet,delayed 40 mg PO DAILY 11/14/22 04/23/23 release (Protonix) polyethylene glycol 3350 17 gram 17 g PO DAILY 11/14/22 04/23/23 oral powder packet (Miralax) primidone 250 mg tablet 375 mg PO BEDTIME 11/14/22 04/23/23 sennosides 8.6 mg capsule (senna) 8.6 mg PO BID 11/14/22 04/23/23 tamsulosin 0.4 mg capsule (Flomax) 0.4 mg PO BID 11/14/22 04/23/23 acetaminophen 500 mg capsule 500 mg PO Q6H PRN fever or pain 04/23/23 04/23/23 finasteride 5 mg tablet 5 mg PO DAILY 04/23/23 04/23/23 hydroxyzine HCl 25 mg tablet 25 mg PO BID PRN itching 04/23/23 04/23/23 lacosamide 150 mg tablet 150 mg PO BID 04/23/23 04/23/23 loperamide 2 mg tablet 2 mg PO BID PRN loose stool 04/23/23 04/23/23 lorazepam 0.5 mg tablet (Ativan) 0.5 mg PO Q8H PRN seizure activity 04/23/23 04/23/23 melatonin 3 mg capsule 3 mg PO QPM PRN sleep 04/23/23 04/23/23 ondansetron 4 mg disintegrating 4 mg PO Q6H PRN nausea and vomiting 04/23/23 04/23/23 tablet albuterol sulfate 90 mcg/actuation 2 inh inhalation Q4H PRN shortness 04/24/23 04/24/23 aerosol inhaler (ProAir HFA) of breath or wheezing benzonatate 100 mg capsule 100 mg PO .Q8 PRN cough 04/24/23 04/24/23 calcium carbonate 500 mg calcium 500 mg PO BID 04/24/23 04/24/23 (1,250 mg) chewable tablet cholecalciferol (vitamin D3) 25 25 mcg PO DAILY 04/24/23 04/24/23 mcg (1,000 unit) tablet cyanocobalamin (vitamin B-12) 1,000 mcg PO DAILY 04/24/23 04/24/23 1,000 mcg tablet diazepam 12.5 mg-15 mg-17.5 mg-20 20 mg [place] Q15M PRN seizure activity 04/24/23 04/24/23 mg rectal kit hydrocortisone 2.5 % topical cream 1 applic topical BID PRN skin 04/24/23 04/24/23 irritation inulin-chromium picolinate 2 2 tab PO DAILY 04/24/23 04/24/23 gram-100 mcg chewable tablet levetiracetam 750 mg tablet 1,500 mg PO QAM 04/24/23 04/24/23 (Keppra) magnesium oxide 400 mg (241.3 mg 400 mg PO DAILY 04/24/23 04/24/23 magnesium) tablet meclizine 25 mg tablet 25 mg PO DAILY 04/24/23 04/24/23 primidone 250 mg tablet 250 mg PO QAM 04/24/23 04/24/23 white petrolatum-mineral oil 94 1 applic ophthalmic (eye) .HS 04/24/23 04/24/23 %-3 % eye ointment (Systane Nighttime) Allergies Allergy/AdvReac Type Severity Reaction Status Date / Time clindamycin Allergy Unknown Verified 05/10/23 08:29 Penicillins Allergy Unknown Verified 05/10/23 08:29 [facility] Medical History (Updated 05/10/23 @ 09:36 by Hadley Alejo MD) GERD (gastroesophageal reflux disease) ?K21.9 - Gastro-esophageal reflux disease without esophagitis (ICD-10) Intellectual developmental disorder, moderate ?F71 - Moderate intellectual disabilities (ICD-10) Seizure disorder ?G40.909 - Epilepsy, unspecified, not intractable, without status epilepticus (ICD-10) Moderate developmental delay ?R62.50 - Unspecified lack of expected normal physiological development in childhood (ICD-10) Generalized intestinal dysmotility ?K59.89 - Other specified functional intestinal disorders (ICD-10) Oropharyngeal dysphagia ?R13.12 - Dysphagia, oropharyngeal phase (ICD-10) Large bowel obstruction ?K56.609 - Unspecified intestinal obstruction, unspecified as to partial versus complete obstruction (ICD-10) Insomnia ?G47.00 - Insomnia, unspecified (ICD-10) Vitamin D deficiency ?E55.9 - Vitamin D deficiency, unspecified (ICD-10) Post-void dribbling ?N39.43 - Post-void dribbling (ICD-10) Nocturia ?R35.1 - Nocturia (ICD-10) Blepharitis ?H01.009 - Unspecified blepharitis unspecified eye, unspecified eyelid (ICD- 10) Hyperlipemia ?E78.5 - Hyperlipidemia, unspecified (ICD-10) BPH w urinary obs/LUTS ?N40.1 - Benign prostatic hyperplasia with lower urinary tract symptoms (ICD- 10) ?N13.8 - Other obstructive and reflux uropathy (ICD-10) Hernia ?K46.9 - Unspecified abdominal hernia without obstruction or gangrene (ICD- 10) Glaucoma ?H40.9 - Unspecified glaucoma (ICD-10) Cystocele Eczema ?L30.9 - Dermatitis, unspecified (ICD-10) Osteoarthritis ?M19.90 - Unspecified osteoarthritis, unspecified site (ICD-10) Hearing loss ?H91.90 - Unspecified hearing loss, unspecified ear (ICD-10) Social History Smoking status: Never smoker Highest level of school completed/degree received: never attended/kindergarten only Exam Narrative Exam Narrative: Patient was seen shortly after arrival by myself. He is awake coherent and his normal baseline cognitive pattern. He denies any pain or discomfort anywhere to his head neck trunk torso or extremities. He follows simple commands and moves about all the extremities with no change in his normal patterns. [facility] is in [facility] collar. He was logrolled to the left side and there is no evidence of contusions hematomas lacerations or swelling. There is actually no tenderness to palpation of his calvarium and neck area. The rest examination of his ribs and abdomen extremities did not show any new or acute trauma or injury. Constitutional Vital Signs, click to edit/add: Last Vital Signs Temp 97.5 F L 05/10/23 08:25 Pulse 85 05/10/23 08:25 Resp 18 05/10/23 08:25 BP 92/58 05/10/23 08:25 Pulse Ox 99 05/10/23 08:25 O2 Del Method Room Air 05/10/23 08:25 Course Vital Signs Vital signs: Vital Signs Temperature 97.5 F L 05/10/23 08:25 Pulse Rate 85 05/10/23 08:25 Respiratory Rate 18 05/10/23 08:25 Blood Pressure 92/58 05/10/23 08:25 Pulse Oximetry 99 05/10/23 08:25 Oxygen Delivery Method Room Air 05/10/23 08:25 Temperature 97.5 F L 05/10/23 08:25 Pulse Rate 85 05/10/23 08:25 Respiratory Rate 18 05/10/23 08:25 Blood Pressure 92/58 05/10/23 08:25 Pulse Oximetry 99 05/10/23 08:25 Oxygen Delivery Method Room Air 05/10/23 08:25 MDM - Fall MDM Narrative Medical decision making narrative: As a precaution based on the mechanics of the fall we will do a CT of the cervical spine. At his age no doubt he will have some degenerative changes and in fact he does. There is no acute injury or fracture noted. I did not scan his brain because there is no soft tissue swelling and no symptomatology at all. Discharge Plan Discharge Chief Complaint: Fall Clinical Impression: Acute cervical myofascial strain Patient Disposition: Home, Self-Care Time of Disposition Decision: 09:36 Prescriptions / Home Meds: No Action acetaminophen 500 mg capsule 500 mg PO Q6H PRN (Reason: fever or pain) hydroxyzine HCl 25 mg tablet 25 mg PO BID PRN (Reason: itching) lorazepam [Ativan] 0.5 mg tablet 0.5 mg PO Q8H PRN (Reason: seizure activity) melatonin 3 mg capsule 3 mg PO QPM PRN (Reason: sleep) ondansetron 4 mg tablet,disintegrating 4 mg PO Q6H PRN (Reason: nausea and vomiting) loperamide 2 mg tablet 2 mg PO BID PRN (Reason: loose stool) finasteride 5 mg tablet 5 mg PO DAILY Patient Comments: AT 1700 lacosamide 150 mg tablet 150 mg PO BID Patient Comments: 0700, 1700 benzonatate 100 mg capsule 100 mg PO .Q8 PRN (Reason: cough) magnesium oxide 400 mg (241.3 mg magnesium) tablet 400 mg PO DAILY Patient Comments: 0700 meclizine 25 mg tablet 25 mg PO DAILY Patient Comments: AT 0700 Systane Nighttime 94-3 % ointment 1 applic ophthalmic (eye) .HS Patient Comments: AT 1700 calcium carbonate 500 mg calcium (1,250 mg) tablet,chewable 500 mg PO BID Patient Comments: 0700, 1700 hydrocortisone 2.5 % cream 1 applic topical BID PRN (Reason: skin irritation) diazepam 12.5-15-17.5-20 mg kit 20 mg [place] Q15M PRN (Reason: seizure activity) cyanocobalamin (vitamin B-12) 1,000 mcg tablet 1,000 mcg PO DAILY cholecalciferol (vitamin D3) 25 mcg (1,000 unit) tablet 25 mcg PO DAILY Patient Comments: 0700 albuterol sulfate [ProAir HFA] 90 mcg/actuation HFA aerosol inhaler 2 inh inhalation Q4H PRN (Reason: shortness of breath or wheezing) levetiracetam [Keppra] 750 mg tablet 1,500 mg PO QAM Rx Instructions: AT 0700 primidone 250 mg tablet 250 mg PO QAM Rx Instructions: AT 0700 inulin-chromium picolinate 2-100 gram-mcg tablet,chewable 2 tab PO DAILY Rx Instructions: AT 0700 lamotrigine 200 mg tablet 400 mg PO QAM Patient Comments: 0700 lamotrigine [Lamictal] 200 mg tablet 600 mg PO BEDTIME Patient Comments: AT 1700 latanoprost 0.005 % drops, emulsion 1 drp ophthalmic (eye) QPM Patient Comments: AT 1700 levetiracetam [Keppra] 1,000 mg tablet 2,000 mg PO BEDTIME Patient Comments: AT 1700 oxybutynin chloride 10 mg tablet extended release 24hr 10 mg PO DAILY Patient Comments: AT 0700 pantoprazole [Protonix] 40 mg tablet,delayed release (DR/EC) 40 mg PO DAILY Patient Comments: AT 0700 polyethylene glycol 3350 [Miralax] 17 gram powder in packet 17 g PO DAILY Patient Comments: AT 700 primidone 250 mg tablet 375 mg PO BEDTIME Patient Comments: AT 1700 senna 8.6 mg capsule 8.6 mg PO BID Patient Comments: 0700, 1700 tamsulosin [Flomax] 0.4 mg capsule 0.4 mg PO BID Patient Comments: 0700, 1700 Additional Instructions: Resume previous care and medications. Referrals: Carson Matamoros MD [Primary Care Provider] - 1 week Stand Alone Forms: Portal Instructions
== END 2023-05-10 10:19 | disposition home or self-care (01) ==
PROVIDERS: Emergency Provider Emergency Medicine Emergency Medical Services; PCP Family Medicine
DX: S16.1XXA Strain of muscle, fascia and tendon at neck level, initial encounter (principal); W19.XXXA Unspecified fall, initial encounter; Z79.899 Other long term (current) drug therapy; Z79.4 Long term (current) use of insulin; K21.9 Gastro-esophageal reflux disease without esophagitis; F71 Moderate intellectual disabilities; G40.909 Epilepsy, unspecified, not intractable, without status epilepticus; R62.50 Unspecified lack of expected normal physiological development in childhood; K59.89 Other specified functional intestinal disorders; G47.00 Insomnia, unspecified; E78.5 Hyperlipidemia, unspecified; N40.1 Benign prostatic hyperplasia with lower urinary tract symptoms; N13.8 Other obstructive and reflux uropathy; L30.9 Dermatitis, unspecified; M19.90 Unspecified osteoarthritis, unspecified site; H91.90 Unspecified hearing loss, unspecified ear
CPT/HCPCS: 72125; 99284

== ENCOUNTER 2023-05-25 00:04 | Emergency (ER) | payer MEDICARE, MEDICAID, SELFPAY ==
[2023-05-25 00:05] VITALS: BP 117/57; PULSE 89; RESP 18; TEMP 36.7; O2SAT 98
--- NOTE | 2023-05-25 00:14 | ED_ITS ---
HPI - General Adult General Chief complaint: Fall Stated complaint: FALL Time Seen by Provider: 05/25/23 00:10 Source: patient and caregiver Mode of arrival: ambulance History of Present Illness HPI narrative: 68-year-old male presents to the emergency department to be evaluated after fall out of bed. It was not witnessed but he was found off of his bed by the wall. He was noted to have an area of erythema on the left side of his face. He does not seem to have any complaints. He states his head and neck do not hurt and neither do his chest abdomen or extremities. He is accompanied by a caregiver. This happened just before coming into the emergency department. Related Data Home Medications ?Medication ?Instructions ?Recorded ?Confirmed lamotrigine 200 mg tablet 400 mg PO QAM 11/14/22 05/25/23 lamotrigine 200 mg tablet 600 mg PO BEDTIME 11/14/22 05/25/23 (Lamictal) latanoprost 0.005 % eye drops, 1 drp ophthalmic (eye) QPM 11/14/22 04/23/23 emulsion levetiracetam 1,000 mg tablet 2,000 mg PO BEDTIME 11/14/22 05/25/23 (Keppra) oxybutynin chloride 10 mg 10 mg PO DAILY 11/14/22 05/25/23 tablet,extended release 24 hr pantoprazole 40 mg tablet,delayed 40 mg PO DAILY 11/14/22 04/23/23 release (Protonix) polyethylene glycol 3350 17 gram 17 g PO DAILY 11/14/22 04/23/23 oral powder packet (Miralax) primidone 250 mg tablet 375 mg PO BEDTIME 11/14/22 05/25/23 sennosides 8.6 mg capsule (senna) 8.6 mg PO BID 11/14/22 05/25/23 tamsulosin 0.4 mg capsule (Flomax) 0.4 mg PO BID 11/14/22 05/25/23 acetaminophen 500 mg capsule 500 mg PO Q6H PRN fever or pain 04/23/23 05/25/23 finasteride 5 mg tablet 5 mg PO DAILY 04/23/23 05/25/23 hydroxyzine HCl 25 mg tablet 25 mg PO BID PRN itching 04/23/23 04/23/23 lacosamide 150 mg tablet 150 mg PO BID 04/23/23 05/25/23 lorazepam 0.5 mg tablet (Ativan) 0.5 mg PO Q8H PRN seizure activity 04/23/23 05/25/23 melatonin 3 mg capsule 3 mg PO QPM PRN sleep 04/23/23 05/25/23 ondansetron 4 mg disintegrating 4 mg PO Q6H PRN nausea and vomiting 04/23/23 05/25/23 tablet albuterol sulfate 90 mcg/actuation 2 inh inhalation Q4H PRN shortness 04/24/23 04/24/23 aerosol inhaler (ProAir HFA) of breath or wheezing benzonatate 100 mg capsule 100 mg PO .Q8 PRN cough 04/24/23 04/24/23 calcium carbonate 500 mg calcium 500 mg PO BID 04/24/23 04/24/23 (1,250 mg) chewable tablet cholecalciferol (vitamin D3) 25 25 mcg PO DAILY 04/24/23 04/24/23 mcg (1,000 unit) tablet cyanocobalamin (vitamin B-12) 1,000 mcg PO DAILY 04/24/23 04/24/23 1,000 mcg tablet diazepam 12.5 mg-15 mg-17.5 mg-[address] Q15M PRN seizure activity 04/24/23 04/24/23 mg rectal kit hydrocortisone 2.5 % topical cream 1 applic topical BID PRN skin 04/24/23 04/24/23 irritation inulin-chromium picolinate 2 2 tab PO DAILY 04/24/23 04/24/23 gram-100 mcg chewable tablet levetiracetam 750 mg tablet 1,500 mg PO QAM 04/24/23 05/25/23 (Keppra) magnesium oxide 400 mg (241.3 mg 400 mg PO DAILY 04/24/23 05/25/23 magnesium) tablet meclizine 25 mg tablet 25 mg PO DAILY 04/24/23 05/25/23 primidone 250 mg tablet 250 mg PO QAM 04/24/23 04/24/23 white petrolatum-mineral oil 94 1 applic ophthalmic (eye) .HS 04/24/23 05/25/23 %-3 % eye ointment (Systane Nighttime) Allergies Allergy/AdvReac Type Severity Reaction Status Date / Time clindamycin Allergy Unknown Verified 05/25/23 00:17 Penicillins Allergy Unknown Verified 05/25/23 00:17 Review of Systems ROS Narrative Not obtainable, psychiatric condition PFSH PFS Medical History (Updated 05/25/23 @ 01:10 by Jay Hall MD) GERD (gastroesophageal reflux disease) ?K21.9 - Gastro-esophageal reflux disease without esophagitis (ICD-10) Intellectual developmental disorder, moderate ?F71 - Moderate intellectual disabilities (ICD-10) Seizure disorder ?G40.909 - Epilepsy, unspecified, not intractable, without status epilepticus (ICD-10) Moderate developmental delay ?R62.50 - Unspecified lack of expected normal physiological development in childhood (ICD-10) Generalized intestinal dysmotility ?K59.89 - Other specified functional intestinal disorders (ICD-10) Oropharyngeal dysphagia ?R13.12 - Dysphagia, oropharyngeal phase (ICD-10) Large bowel obstruction ?K56.609 - Unspecified intestinal obstruction, unspecified as to partial versus complete obstruction (ICD-10) Insomnia ?G47.00 - Insomnia, unspecified (ICD-10) Vitamin D deficiency ?E55.9 - Vitamin D deficiency, unspecified (ICD-10) Post-void dribbling ?N39.43 - Post-void dribbling (ICD-10) Nocturia ?R35.1 - Nocturia (ICD-10) Blepharitis ?H01.009 - Unspecified blepharitis unspecified eye, unspecified eyelid (ICD- 10) Hyperlipemia ?E78.5 - Hyperlipidemia, unspecified (ICD-10) BPH w urinary obs/LUTS ?N40.1 - Benign prostatic hyperplasia with lower urinary tract symptoms (ICD- 10) ?N13.8 - Other obstructive and reflux uropathy (ICD-10) Hernia ?K46.9 - Unspecified abdominal hernia without obstruction or gangrene (ICD- 10) Glaucoma ?H40.9 - Unspecified glaucoma (ICD-10) Cystocele Eczema ?L30.9 - Dermatitis, unspecified (ICD-10) Osteoarthritis ?M19.90 - Unspecified osteoarthritis, unspecified site (ICD-10) Hearing loss ?H91.90 - Unspecified hearing loss, unspecified ear (ICD-10) Social History Smoking status: Never smoker Highest level of school completed/degree received: never attended/kindergarten only Exam Narrative Exam Narrative: Nurses note and vital signs reviewed and patient is not hypoxic. General: The patient appears well and in no apparent distress. Patient is resting comfortably on cart. Skin: Warm, dry, no pallor noted. There is no rash noted. Head: Normocephalic, area of erythema present below his left eye and on his left forehead above his eye. Cervical spine nontender. Eye: Normal conjunctiva, no drainage Ears, Nose, Mouth, and Throat: oral mucosa is moist. Nares patent. Cardiovascular: Regular Rate and Rhythm Respiratory: Patient is in no distress, no accessory muscle use, lungs are clear to auscultation, no wheezing, rales or rhonchi Back: non-tender, no bruises or abrasions or areas of erythema GI: Soft and nontender Musculoskeletal: Areas of erythema present on both knees but neither knee is tender and both knees have full range of motion. No palpable tenderness to his ankles or hips. Arms are nontender and have good range of motion Neurological: Awake and alert, at his baseline according to the caregiver Psychiatric: Cooperative Constitutional Vital Signs, click to edit/add: Last Vital Signs Temp 98.0 F 05/25/23 00:05 Pulse 89 05/25/23 00:05 Resp 18 05/25/23 00:05 BP 117/57 05/25/23 00:05 Pulse Ox 98 05/25/23 00:05 O2 Del Method Room Air 05/25/23 00:05 Course Vital Signs Vital signs: Vital Signs Temperature 98.0 F 05/25/23 00:05 Pulse Rate 89 05/25/23 00:05 Respiratory Rate 18 05/25/23 00:05 Blood Pressure 117/57 05/25/23 00:05 Pulse Oximetry 98 05/25/23 00:05 Oxygen Delivery Method Room Air 05/25/23 00:05 Temperature 98.0 F 05/25/23 00:05 Pulse Rate 89 05/25/23 00:05 Respiratory Rate 18 05/25/23 00:05 Blood Pressure 117/57 05/25/23 00:05 Pulse Oximetry 98 05/25/23 00:05 Oxygen Delivery Method Room Air 05/25/23 00:05 Medical Decision Making MDM Narrative Medical decision making narrative: CAT scan of brain and knee x-ray are negative. Findings are discussed with the patient and his caregiver and he is released Differential Diagnosis Differential Diagnosis: Fall, head contusion, intracranial hemorrhage, knee contusion, knee fx Imaging Data CT scan - head: Radiologist's impression: ITS Impressions Head CT 05/25/23 00:14 Impression: 1. No acute intracranial abnormality. 2. Diffuse atrophy with proportionate ventriculomegaly. 3. Changes of probable chronic ischemic small vessel white matter disease. Electronically authenticated by: LUZ MARINA MATUTE Date: 05/25/2023 00:46 Knee X-Ray 05/25/23 00:21 IMPRESSION: The right knee joint is radiographically negative with no evidence of fracture, dislocation, significant joint space narrowing, sizable osteophytes, or other osseous or articular abnormalities. IMPRESSION: Negative. Electronically authenticated by: ROSLYN KENT Date: 05/25/2023 00:59 Discharge Plan Discharge Stand Alone Forms: Portal Instructions Chief Complaint: Fall Clinical Impression: Fall Patient Disposition: Home, Self-Care Time of Disposition Decision: 01:10 Condition: Good Mode of Transportation: Private Vehicle Prescriptions / Home Meds: No Action acetaminophen 500 mg capsule 500 mg PO Q6H PRN (Reason: fever or pain) hydroxyzine HCl 25 mg tablet 25 mg PO BID PRN (Reason: itching) lorazepam [Ativan] 0.5 mg tablet 0.5 mg PO Q8H PRN (Reason: seizure activity) melatonin 3 mg capsule 3 mg PO QPM PRN (Reason: sleep) ondansetron 4 mg tablet,disintegrating 4 mg PO Q6H PRN (Reason: nausea and vomiting) finasteride 5 mg tablet 5 mg PO DAILY Patient Comments: AT 1700 lacosamide 150 mg tablet 150 mg PO BID Patient Comments: 0700, 1700 benzonatate 100 mg capsule 100 mg PO .Q8 PRN (Reason: cough) magnesium oxide 400 mg (241.3 mg magnesium) tablet 400 mg PO DAILY Patient Comments: 0700 meclizine 25 mg tablet 25 mg PO DAILY Patient Comments: AT 0700 Systane Nighttime 94-3 % ointment 1 applic ophthalmic (eye) .HS Patient Comments: AT 1700 calcium carbonate 500 mg calcium (1,250 mg) tablet,chewable 500 mg PO BID Patient Comments: 0700, 1700 hydrocortisone 2.5 % cream 1 applic topical BID PRN (Reason: skin irritation) diazepam 12.5-15-17.5-20 mg kit [address] Q15M PRN (Reason: seizure activity) cyanocobalamin (vitamin B-12) 1,000 mcg tablet 1,000 mcg PO DAILY cholecalciferol (vitamin D3) 25 mcg (1,000 unit) tablet 25 mcg PO DAILY Patient Comments: 0700 albuterol sulfate [ProAir HFA] 90 mcg/actuation HFA aerosol inhaler 2 inh inhalation Q4H PRN (Reason: shortness of breath or wheezing) levetiracetam [Keppra] 750 mg tablet 1,500 mg PO QAM Rx Instructions: AT 0700 primidone 250 mg tablet 250 mg PO QAM Rx Instructions: AT 0700 inulin-chromium picolinate 2-100 gram-mcg tablet,chewable 2 tab PO DAILY Rx Instructions: AT 0700 lamotrigine 200 mg tablet 400 mg PO QAM Patient Comments: 0700 lamotrigine [Lamictal] 200 mg tablet 600 mg PO BEDTIME Patient Comments: AT 1700 latanoprost 0.005 % drops, emulsion 1 drp ophthalmic (eye) QPM Patient Comments: AT 1700 levetiracetam [Keppra] 1,000 mg tablet 2,000 mg PO BEDTIME Patient Comments: AT 1700 oxybutynin chloride 10 mg tablet extended release 24hr 10 mg PO DAILY Patient Comments: AT 0700 pantoprazole [Protonix] 40 mg tablet,delayed release (DR/EC) 40 mg PO DAILY Patient Comments: AT 0700 polyethylene glycol 3350 [Miralax] 17 gram powder in packet 17 g PO DAILY Patient Comments: AT 700 primidone 250 mg tablet 375 mg PO BEDTIME Patient Comments: AT 1700 senna 8.6 mg capsule 8.6 mg PO BID Patient Comments: 0700, 1700 tamsulosin [Flomax] 0.4 mg capsule 0.4 mg PO BID Patient Comments: 0700, 1700 Print Language: Macedonian Instructions: Fall Prevention for Older Adults (ED) Referrals: Carson Matamoros MD [Primary Care Provider] - 1 week
--- NOTE | 2023-05-25 00:14 | CT_ITS ---
The [address] [address] Patient Name: CHIDI TAYLOR MRN: [id number] date: 1955 Sex: M Assigned Patient Location: ED.MAIN Current Patient Location: ER Accession/Order Number: [id number] Exam Date: 05/25/2023 00:28 Report Date: 05/25/2023 00:46 At the request of: SAIRA CHAVEZ Procedure: CT head/brain wo con Head CT 05/24/2023 11:28 PM CDT History: Fall. Comparison: 11/14/2022. Technique: Unenhanced CT imaging of the head. This CT exam was performed using one or more of the following dose reduction techniques: Automated exposure control, adjustment of the mA and/or KV according to patient size, or use of iterative reconstruction technique. Findings: There is no evidence of acute intracranial abnormality. Specifically, there is no evidence of acute hemorrhage, infarct, contusion, hydrocephalus, midline shift, or abnormal extra-axial collection. There is diffuse atrophy with proportionate ventriculomegaly. 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 Low attenuation in the periventricular white matter is nonspecific but likely reflects changes of chronic ischemic small vessel white matter disease. The calvarium is intact. CT/CT head/brain wo con Impression: 1. No acute intracranial abnormality. 2. Diffuse atrophy with proportionate ventriculomegaly. 3. Changes of probable chronic ischemic small vessel white matter disease. Electronically authenticated by: LUZ MARINA MATUTE Date: 05/25/2023 00:46
--- NOTE | 2023-05-25 00:21 | XR_ITS ---
The [address] [address] Patient Name: CHIDI TAYLOR MRN: [id number] date: 1955 Sex: M Assigned Patient Location: ER Current Patient Location: ER Accession/Order Number: [id number] Exam Date: 05/25/2023 00:32 Report Date: 05/25/2023 00:59 At the request of: SAIRA CHAVEZ Procedure: XR knee RT 3V EXAM: XR knee RT 3V HISTORY: The patient is a 68-year-old male, fall COMPARISON: None. XR/XR knee RT 3V IMPRESSION: The right knee joint is radiographically negative with no evidence of fracture, dislocation, significant joint space narrowing, sizable osteophytes, or other osseous or articular abnormalities. IMPRESSION: Negative. Electronically authenticated by: ROSLYN KENT Date: 05/25/2023 00:59
--- OUTSIDE RECORDS SUMMARY | 2023-05-25 00:23 | XMS_ITS | CCD ---
Author Organization [facility] Care Team Providers Care Emergency Medical Technician Basic Name Role Phone SAYON, PIEDAD Unavailable Unavailable SAYON, PIEDAD Unavailable Unavailable NO FAMILY DOCTOR, NO FAMILY DOCTOR Unavailable Unavailable SAYON, PIEDAD Unavailable Unavailable NO FAMILY DOCTOR, NO FAMILY DOCTOR Unavailable Unavailable SAYON, PIEDAD Unavailable Unavailable LIZZ AGUILAR Unavailable Unavailable WELLINGTON BELTRÁN Unavailable Unavailable Kevin Robles Primary Care Provider Kevin Robles Primary Care Provider [phone] Kevin Robles DO Primary Care Provider CARSON MATAMOROS Primary Care Physician [phone] Mónica Woodward Unavailable Unavailable NADERER, DR CARSON Perez Admitting Unavailable NADERER, DR CARSON Perez Primary Care Unavailable CECIL, DR DAVID Ridley Consulting Unavailable NADERER, DR CARSON Perez Attending Unavailable NADERER, DR CARSON Perez Consulting Unavailable NADERER, DR CARSON Perez Primary Care Unavailable NADERER, DR CARSON Perez Attending Unavailable ZIEBER, DR LIZZ Cabrera Consulting Unavailable NADERER, DR CARSON Perez Admitting Unavailable NADERER, DR CARSON Perez Consulting Unavailable NADERER, DR CARSON Perez Admitting Unavailable NADERER, DR CARSON Perez Primary Care Unavailable NADERER, DR CARSON Perez Attending Unavailable NADERER, DR CARSON Perez Primary Care Unavailable ABIGAIL BELTRÁN Attending Unavailable ABIGAIL BELTRÁN Admitting Unavailable IRWIN QUICK Consulting Unavailable ABIGAIL BELTRÁN Consulting Unavailable MOR FAULKNER Consulting Unavailable Kevin Robles DO Primary Care Provider Kevin Robles DO Primary Care Provider [phone] Carson Matamoros MD Primary Care Provider Carson Matamoros MD Primary Care Provider CARSON MATAMOROSONY Primary Care Unavailabl e BALJINDER VÁZQUEZ Consulting Unavailable KELLY OWUSU Attending Unavailable RAEANN RODRIGUEZ Admitting Unavailable TOSHIA CHO Consulting Unavailable ROGER, RAEANN Lopez Consulting Unavailable PEBBLES LIMA Consulting Unavailable AVASTHI, ANGELA Consulting Unavailable NARCISA, LYNNETTE L Referring Unavailable NADERER, CARSON REJI Primary Care Unavailabl e NADERER, CARSON HUBBELL Primary Care Unavailabl e NADERER, CARSON HUBBELL Referring Unavailabl e LUZ MARINA DURAND Consulting Unavailable YANA CORNEJO Admitting Unavailable YANA CORNEJO Attending Unavailable [facility]SON HUBBELL Primary Care Unavailabl e CORY, JOSE ARANDA Admitting Unavailable CORYJOSE Attending Unavailable NADERER, CARSON [facility] Care Unavailabl e IACOB, LYLA Admitting Unavailable IACOBLYLA Attending Unavailable NADERERCARSON HUBBELL Primary Care Unavailabl e NAZ CORONA Consulting Unavailable NADERE, [facility] Unavailabl e PATEL, DIPAKKUMAR P Admitting Unavailable PATEL, DIPAKKUMAR P Attending Unavailable ILOKEVIN J Primary Care Unavailable NARCISA, LYNNETTE L Referring Unavailable NARCISA, LYNNETTE L Referring Unavailable [facility] Primary Care Unavailabl e NADERECARSON Cabrera Primary Care Unavailable DIAN RANDALL Attending Unavailable TONIA, DIAN Cabrera Attending Unavailable DIAN RANDALL Referring Unavailable NADERECARSON Cabrera Primary Care Unavailable DIAN RANDALL Attending Unavailable DIAN RANDALL Referring Unavailable NADERECARSON Cabrera Primary Care Unavailable Carson Matamoros MD Primary Care Provider CARSON MATAMOROS Primary Care Unavailable DENEEN DE JESUS Attending Unavailable AARTI, SHUBHITA Admitting Unavailable CALVO, ROMANA Consulting Unavailable LUZ MARINA ADAMS Consulting Unavailable [facility] Consulting U navailable (TTH ONLY), NEURO-CONSULTING Consulting Alona vailable DIAN RANDALL Referring Unavailable CARSON MATAMOROS Primary Care Unavailable CLUTS, ERNESTO Referring Unavailable CARSON MATAMOROS Primary Care Unavailable KALIFA, MUHAMAD U Attending Unavailable KALIFA, MUHAMAD U Referring Unavailable NADERERCARSON Primary Care Unavailable KALIFA, MUHAMAD U Attending Unavailable KALIFA, MUHAMAD U Referring Unavailable NADERERick, CARSON Primary Care Unavailable KALIFA, MUHAMAD U Attending Unavailable KALIFA, MUHAMAD U Referring Unavailable [facility] Primary Care Unavailable XAVIER SEGAL Referring Unavailable [facility] CARSON Primary Care Unavailable KALIFA, MUHAMAD U Attending Unavailable KALIFA, MUHAMAD U Referring Unavailable ANSONERERCARSON Primary Care Unavailable KALIFA, MUHAMAD U Attending Unavailable KALIFA, MUHAMAD U Referring Unavailable [facility] Primary Care Unavailable KALIFA, MUHAMAD U Attending Unavailable KALIFA, MUHAMAD U Referring Unavailable [facility]SON Primary Care Unavailable EDILMA TRAVIS Referring Unavailable [facility], CARSON Primary Care Unavailable Carson Matamoros MD Primary Care Provider CARMEN KERN Attending Unavailable BOLIVAR VALDOVINOS Admitting Unavailable [facility] Cab[facility] REJI Primary Care Unavailabl e BAIS, DONNIE Consulting Unavailable CARLOS WOODWARD Referring Unavailable LADI SAAB Consulting Unavailable CÉSAR GAUTHIER Referring Unavailable DAVID BORGES Consulting Unavailable [facility] CARSON [facility] Care Unavailabl e ORLOPCARMEN Admitting Unavailable ORLOP, CARMEN Hernandez Attending Unavailable BAIS, DONNIE Consulting Unavailable VANESSA LOPEZ Consulting Unavailable Abbie SPEAR Consulting Unavailable HENRY DAVIES Consulting Unavailable Yasmani CAMARA Attending Unavailable Melchor Rivera Admitting Unavailabl Melchor Perdue Attending Unavailabl e RobensKari rivero Admitting Unavailab Leonel Olivarez Attending Unavailable ELSIE CASTANON Attending Unavailable ELSIE CASTANON Attending Unavailable NADERER, CARSON Attending Unavailable [facility]SON Attending Unavailable Allergies Allergy Classification Reported Allergen(s) Allergy Type Date of Onset Reaction(s) Facility Lincosamides (antibiotic) (1 source) Clindamycin Drug Allergy 4 [facility] Penicillins (antibiotic) (1 source) Penicillins Drug Allergy 3 Hives, Shortness Of Breath [facility] (20 sources) clindamycin; Translations: [CLINDAMYCIN] Drug Allergy 5 Rash [facility] (20 sources) Penicillins; Translations: [PENICILLINS] Propensity to adverse reactions to drug (disorder) 5 Hives, Shortness Of Breath, Swelling [facility] (1 source) OTHER; Translations: [OTHER] Propensity to adverse reactions (disorder) 5 [facility] (10 sources) Nuts 1 Food intolerance Unknown (qualifier value) [facility] Comment on above: Due to GI issues (1 source) Hypochlorite Drug Allergy 4 Hives, Itching [facility] (1 source) Nuts (not including peanuts); Translations: [Nuts] Food allergy (disorder) [facility] Rep[facility] Medications Current Medications Medication Drug Class(es) Dates Sig (Normalized) Sig (Original) Acetaminophen (20 sources) Start: 04-24-2023 acetaminophen (TYLENOL) tablet 650 mg Start: 09-02-2022 acetaminophen (TYLENOL) tablet 650 mg [...] Start Date: 06/11/21 Status: Ordered Start: 03-23-2020 End: 04-28-2023 take 1 tablet by mouth every six hours as needed for pain acetaminophen (TYLENOL EXTRA STRENGTH) 500 mg tablet Indications: Post-op pain Take 1 tablet (500 mg total) by mouth every 6 (six) hours as needed for pain. 30 tablet 0 03/23/2020 Active Start: 12-15-2015 End: 04-25-2023 take 2 tablets by mouth every four hours as needed for pain acetaminophen (TYLENOL) 325 MG tablet Take 2 tablets by mouth every 4 hours as needed for Pain 120 tablet 3 12/15/2015 04/25/2023 Discontinued (DUPLICATE) benzonatate 100 mg oral capsule (1 source) Non-narcotic Antitussive take 1 capsule by mouth three times daily as needed for cough benzonatate (TESSALON) 100 MG capsule Take 1 capsule by mouth 3 times daily as needed for Cough 0 Active carbamide peroxide 65 mg/ml otic solution (7 sources) Start: Debrox 6.5% otic solution 5 drop(s), Refill(s) 0, at bedtime once a month Start Date: 06/11/21 Status: Ordered Start: 11-12-2018 carbamide cyrus xide (DEBROX) 6.5 % otic solution Apply 4 ggt to both ear nightly once a month . Cotton ball then in am rinse with body temperature water using syringe in kit 15 mL 0 11/12/2018 Active Start: 11-12-2018 carbamide peroxi de (DEBROX) 6.5 % otic solution Place 4 drops into both ears every 30 days Apply cotton swabs to ears, after instilling drops. Then irrigate with room temperature water the next morning 0 Active chromium picolinate 0.1 mg / inulin 2000 mg chewable tablet (3 sources) Start: 11-12-2018 inulin-chromiu m picolinate 2-100 gram-mcg tablet,chewable Indications: Seizures (CMS-HCC) Chew 2 tablets and swallow daily. 180 tablet 1 11/12/2018 Active Start: 11-12-2018 Debrox 6.5% otic solution (5 [...] 90 mL Ear Wax 6.5% otic solution (3 sources) Start: 06-24-2022 Ear Wax 6.5% otic [...] (20 sources) 5-alpha Reductase Inhibitor Start: 08-14-2015 take 1 tablet by mouth once daily finasteride (PROSCAR) 5 mg tablet Indications: Benign prostatic hyperplasia with urinary frequency Take 1 tablet (5 mg total) by mouth daily. 90 tablet 1 04/03/2017 Active hydrocortisone 25 mg/ml topical cream (9 sources) Corticosteroid Start: 02-18-2020 hydrocortisone (HYTONE) 2.5 % cream Apply 2.5 application topically 2 (two) times a day as needed. 0 02/18/2020 Active Start: 02-18-2020 hydrocortisone Top 2.5% Crm daily, Topical, BID, Refill(s) 0 Start Date: 11/08/22 Status: Ordered Ibuprofen (7 sources) Nonsteroidal Anti-inflammatory Drug Start: 12-16-2018 ibuprofen PRN as needed for pain, Refills(s) 0, Pain Start Date: 12/16/18 Status: Ordered 1 ml ketorolac tromethamine 15 mg/ml cartridge (1 source) Nonsteroidal Anti-inflammatory Drug, Cyclooxygenase Inhibitor Start: 05-09-2022 End: 05-14-2022 ketorolac (TORADOL) injection 15 mg 5 ml levETIRAcetam 100 mg/ml injection (20 sources) Start: 04-25-2023 levETIRAcetam (KEPPRA) injection 2,000 mg Start: 04-25-2023 levETIRAcetam (KEPPRA) injection 1,500 mg Start: 04-19-2023 End: 04-20-2023 take 1500 mg [...] medication - verify indication for use. Start: 02-15-2023 take 2 tablets by mo uth once daily levETIRAcetam (KEPPRA) 750 MG tablet Take 2 tablets by mouth daily 60 tablet 3 02/15/2023 Active Start: 09-03-2022 End: 09-06-2022 levETIRAcetam (KEPPRA) 1500 mg/100 mL IVPB Start: 09-03-2022 take 1500 mg by mout h once daily in the morning 1,500 mg, Oral, EVERY MORNING, First dose on 09/03/22 at 0900, Until Discontinued Do not crush or chew. Start: 09-02-2022 take 2000 mg by mout h once daily in the evening 2,000 mg, Oral, EVERY EVENING, First dose on 09/02/22 at 2330, Until Discontinued Do not crush or chew. Start: 06-25-2022 take 2 tablets by mo uth once daily levETIRAcetam 750 mg oral tablet, dispersible 1,500 mg = 2 tab(s), Oral, Daily, Refills(s) 0 Start Date: 06/25/22 Status: Ordered Start: 06-24-2022 levETIRAcetam (KEPPRA) 1500 mg/100 mL IVPB Start: 05-12-2022 take 1500 mg by mout h twice daily 1,500 mg, Oral, 2 TIMES DAILY, First dose on Sun05/12/22 at 1100, Until Discontinued Start: 04-03-2017 End: 04-08-2023 take 2 tablets by mouth at bedtime levetiracetam 1000 mg oral tablet 2,000 mg = 2 tab(s), Oral, Bedtime, Refills(s) 0 Start Date: 06/25/22 Status: Ordered Start: 08-14-2015 levetiracetam 1500, Oral, BID, Refills(s) 0, Seizure Start Date: 08/14/15 Status: Ordered take 1 tablet by kecia th twice daily LEVETIRACETAM PO Indications: dissolvable tablet Take 1,500 mg by mouth 2 times daily Indications: dissolvable tablet 0 Active take 1 tablet by kecia th twice daily levETIRAcetam (KEPPRA) 750 MG tablet Indications: dissolvable tablet Take 750 mg by mouth 2 times daily Indications: dissolvable tablet 0 Active levETIRAcetam (KEPPRA) 2,000 mg in sodium chloride 0.9 % 250 mL IVPB (1 source) Start: 06-22-2022 levETIRAcetam (KEPPRA) 2,000 mg in sodium chloride 0.9 % 250 mL IVPB linaclotide 0.145 mg oral capsule (2 sources) Guanylate Cyclase-C Agonist Start: 04-30-2023 take 1 capsule by mouth once daily before breakfast linaclotide (LINZESS) 145 MCG capsule Take 1 capsule by mouth every morning (before breakfast) 30 capsule 0 04/30/2023 Active Start: 04-29-2023 linaclotide (L INZESS) capsule 145 mcg loperamide hydrochloride 2 mg oral capsule (20 sources) Opioid Agonist Start: 02-07-2021 take 1 mg by mouth every four hours loperamide 2 mg Cap mg cap(s), Oral, q4hr, Refills(s) 0 Start Date: 02/07/21 Status: Ordered Start: 04-03-2017 take 1 tablet by kecia th twice daily as needed for diarrhea loperamide (IMODIUM A-D) 2 mg tablet Indications: Diarrhea, unspecified type Take 1 tablet (2 mg total) by mouth 2 (two) times a day as needed for diarrhea. 30 tablet 1 04/03/2017 Active Start: 08-14-2015 take 1 mg by mouth f our times daily as needed loperamide 1 mg, Oral, QID, PRN as needed for loose stool, Refills(s) 0, Loose stool Start Date: 08/14/15 Status: Ordered End: 04-28-2023 take 1 capsule by mouth twice daily as needed for diarrhea loperamide (IMODIUM) 2 MG capsule Take 1 capsule by mouth 2 times daily as needed for Diarrhea 0 04/28/2023 Discontinued (Stop Taking at Discharge) End: 09-03-2022 loperamide (IMODIUM) 2 MG ca psule Take 1 capsule by mouth 4 times daily as needed for Diarrhea (2 caps by mouth with 1st loose stool, then 1 cap by mouth PRN for additional loose stools. (Max 16mg/24hours)) 0 09/03/2022 Discontinued (LIST CLEANUP) 100 ml magnesium sulfate 10 mg/ml injection (5 sources) Start: 04-24-2023 take 1000 mg intravenously every hour as needed 1,000 mg, IntraVENous, at 100 mL/hr, Adm inister over 1 Hours, PRN, Other, Per IV Magnesium Replacement Protocol, Starting on Sun04/24/23 at 2247 Mg Lab Replacement Action 1.4- 1.6 1 gram IVPB x 2 doses &nb sp; (2 gram Total) 1.0-1.3 1 gram IVPB x 4 doses &nb sp; (4 gram Total) <1.0 CALL PHYSICIAN and &n bsp; 1 gram IVPB x 4 doses (4 gram Total) Infuse at 1 gram/hr Repeat Mag level next AM Protocol not for use in Patients with CrCl<30ml/min Start: 04-08-2023 End: 04-20-2023 2,000 mg, intravenous, [...] than 30ml/min melatonin 3 mg oral tablet (17 sources) Start: 07-05-2021 take 1 tablet by mouth once daily at bedtime as needed melatonin 3 mg Tab 3 mg = 1 tab(s), Oral, Once a day (at bedtime), PRN for insomnia Start Date: 06/25/22 Status: Ordered take 3 tablets by mo uth once daily as needed for sleep melatonin (CIRCADIN) tablet Take 3 table ts (3 mg total) by mouth nightly as needed for sleep. 0 Active metoclopramide 5 mg oral tablet (1 source) [...] # 56 tab(s), Refills(s) 0, Pharmacy: [id number], 157.... Start Date: 06/27/22 Stop Date: 07/11/22 Status: Ordered mineral oil 0.03 mg/mg / petrolatum 0.94 mg/mg ophthalmic ointment (3 sources) Start: 10-17-2017 white petrolatum-mineral oil (SYSTANE NIGHTTIME) 94-3 % ointment Indications: Ocular pruritus Instill 1 application to eye nightly. To eye lid Area bilat not conjuctivia (for pt chronic itching of ey) 1 Tube 2 10/17/2017 Active Start: 10-17-2017 NONFORMULARY (15 sources) take 2 tablets by mo uth once daily NONFORMULARY Take 2 tablets by mouth daily Inulin-chromium picolinate 2gm-100mcg chewable tab 0 Active End: 05-12-2022 NONFORMULARY Indications: Se izure , Valium [address] rectally as needed Indications: Seizure, Valium 20 mg suppository 0 05/12/2022 Discontinued (Stop Taking at Discharge) NONFORMULARY Ind ications: Seizure , Valium [address] rectally as needed Indications: Seizure, Valium 20 mg suppository 0 Active ondansetron (ZOFRAN-ODT) disintegrating tablet 4 mg (3 sources) Start: 09-02-2022 ondansetron (Z OFRAN-ODT) disintegrating tablet 4 mg Start: 06-21-2022 ondansetron (Z OFRAN-ODT) disintegrating tablet 4 mg Start: 05-09-2022 ondansetron (Z OFRAN-ODT) disintegrating tablet 4 mg Oyster Taye (7 sources) Start: 12-16-2018 Oyster Taey Ora l, TID, Refills(s) 0, Prophylaxis Start Date: 12/16/18 Status: Ordered pantoprazole 40 mg delayed release oral tablet (8 sources) Proton Pump Inhibitor Start: 09-07-2022 take [...] chloride (PF) 0.9 % 10 mL injection polyethylene glycol 400 4 mg/ml / propylene glycol 3 mg/ml ophthalmic solution (1 source) polyethyl glycol-propyl glycol 0.4-0.3 % (SYSTANE) 0.4-0.3 % ophthalmic solution Place 1 drop into both eyes nightly Systane nighttime ointment 0 Active Senna Leaves (5 sources) Start: 07-06-19 take 1 tablet by mouth twice daily senna 8.6 mg Tab 8.6 mg = 1 tab(s), Oral, BID, Refills(s) 0 Start Date: 07/05/21 Status: Ordered sennosides, halfway 8.6 mg oral tablet (13 sources) Start: 07-06-19 take 1 tablet by mouth twice daily senna 8.6 mg Tab 8.6 mg = 1 tab(s), Oral, BID, Refills(s) 0 Start Date: 07/05/21 Status: Ordered traZODone hydrochloride 50 mg oral tablet (14 sources) Serotonin Reuptake Inhibitor Start: 07-06-19 End: 04-25-19 take 1 tablet by mouth at bedtime traZODONE 50 mg Tab 50 mg = 1 tab(s), Oral, Bedtime, Refills(s) 0 Start Date: 07/05/21 Status: Ordered vitamin b12 1 mg oral tablet (5 sources) Vitamin B12 Start: 04-19-19 End: 04-25-19 take 1 tablet by mouth in the morning cyanocobalamin 1000 MCG tablet Take 1 tablet (1,000 mcg total) by mouth in the morning. 30 tablet 0 04/19/2023 Active Start: 04-09-2023 End: 04-13-2023 inject 1000 ug by intramuscular injection once daily 1,000 mcg, intramuscular, Daily, First dose on Sun04/09/23 at 1445, For 5 doses Vitamin D 1000 intl units (25 mcg) Tab (3 sources) Start: 06-24-2022 take 1 tablet by [...] q8hr, # 10 tab(s), Refills(s) 0, Pharmacy: [address], 172.7, cm, 02/28/21 17:40:00 EST, Height/Length Dosing, 94.1, kg, 02/28/21 17:40:00 EST, Weight Dosing Start Date: 02/28/21 Status: Ordered Completed/Discontinued Medications Medication Drug Class(es) Dates Sig (Normalized) Sig (Original) albuterol 0.83 mg/ml inhalation solution (5 sources) beta2-Adrenergic Agonist Start: 04-09-2023 End: 04-20-2023 take 2.5 mg by inhalation every six hours as needed for wheezing and dyspnea 2.5 mg, nebulization, Every 6 hours PRN, wheezing, shortness of breath, Starting on Sun04/09/23 at 0820, Implement INPATIENT/ED Bronchodilator Clinical Practice Guidelines? Yes, Document: \[facility]\ epic\EPIC_Reference\O rders\Respiratory Care Guidelines\CPG Bronchodilator 2020.pdf Start: 02-15-2023 take 2 puff(s) by in halation every four hours as needed for wheezing albuterol (PROVENTIL HFA;VENTOLIN HFA) 90 mcg/actuation inhaler Indications: Pneumonia of right lower lobe due to infectious organism Inhale 2 puffs every 4 (four) hours as needed for wheezing. 18 g 0 02/15/2023 Active Start: 02-15-2023 take 2 puff(s) by in halation every four hours as needed for wheezing albuterol sulfate HFA (PROAIR HFA) 108 (90 Base) MCG/ACT inhaler Inhale 2 puffs into the lungs every 4 hours as needed for Wheezing 0 Active bisacodyl 10 mg rectal suppository (1 source) Stimulant Laxative Start: 09-03-2022 End: 09-07-2022 bisacodyl (DULCOLAX) suppository 10 mg calcium carbonate 500 mg chewable tablet (12 sources) Start: 06-24-2022 take 1 tablet by mouth twice daily 500 mg (1 tablet), Oral, 2 TIMES DAILY, First dose on Sun04/28/23 at 1230, Until Discontinued Start: 06-24-2022 calcium carbon ate 500 mg Chew Tab 500 mg = 1 tab(s), Chewed, BID, # 15 tab(s), Refills(s) 0 Start Date: 06/24/22 Status: Ordered Start: 11-12-2018 take 1 tablet by kecia th twice daily at mealtime calcium carbonate (OS-TAYE) 600 mg (1,500 mg) tablet Indications: Seizures (CMS-HCC) Take 1 tablet (600 mg total) by mouth 2 (two) times a day with meals. chewable 90 tablet 1 11/12/2018 Active take 1 tablet by kecia th twice daily calcium carbonate (OYSTER SHELL CALCIUM [...] inf usion cholecalciferol 0.025 mg oral tablet (15 sources) Vitamin D Start: 12-16-2018 take 1 capsule by mouth once daily cholecalciferol 1000 intl units oral capsule 1,000 International_Unit = 1 cap(s), Oral, Daily, Refills(s) 0, Prophylaxis Start Date: 12/16/18 Status: Ordered Start: 09-04-2018 take 1 tablet by kecia th once daily cholecalciferol, vitamin D3, (cholecalciferol) 1,000 units tablet Indications: Vitamin D deficiency Take 1 tablet (1,000 Units total) by mouth daily. 90 tablet 1 09/04/2018 Active take 1 tablet by kecia th once daily Vitamin D (CHOLECALCIFEROL) 25 MCG (1000 UT) TABS tablet Take 1 tablet by mouth daily 0 Active 2 ml diazePAM 5 mg/ml rectal gel (18 sources) Benzodiazepine Start: 02-14-2023 End: 04-25-2023 diazePAM (DIASTAT) 10 MG GEL Indications: Seizure disorder (HCC) Place 20 mg rectally as needed (Insert 21 g rectally as needed for seizure activity> 50 minutes) for up to 10 days. 15 each 1 02/14/2023 04/25/2023 Discontinued (DUPLICATE) Start: 09-02-2022 20 mg, Rectal, PRN, Starting [...] MG GEL Place 20 mg rectally as needed (seizure activity>15 minutes). 0 Active diphenhydrAMINE hydrochloride 25 mg oral tablet (2 sources) Histamine-1 Receptor Antagonist End: 09-03-2022 take 1 tablet by mouth every four hours as needed diphenhydrAMINE (BENADRYL) 25 MG tablet Take 1 tablet by mouth every 4 hours as needed for Itching (rash) 0 09/03/2022 Discontinued (LIST CLEANUP) 0.4 ml enoxaparin sodium 100 mg/ml prefilled syringe (4 sources) Low Molecular Weight Heparin Start: 04-25-2023 inject 40 mg by subcutaneous injection once daily 40 mg, SubCUTAneous, DAILY, First dose on Sun04/25/23 at 0900, Until Discontinued Indication of Use: Prophylaxis-DVT/PE Administer by deep subCUTAneous injection with pt lying down. Alternate injection sites on abdominal wall. Do not rub site after injection. Check with provider prior to any invasive procedure. Start: 09-03-2022 inject 40 mg by subc utaneous injection [...] or NPO without IV access., Starting on Sun04/08/23 at 0935, If conscious and not NPO, [...] glucose less than 70 mg/dL, Starting on Mora 04/08/23 at 0935, If patient conscious and taking PO. If blood glucose is not greater than 70 mg/dL after initial treatment, repeat treatment. Start: 04-08-2023 End: 04-20-2023 25 mL, intravenous, As neede d, low blood sugar, blood glucose less than 70 mg/dL and unconscious or NPO with IV access, Starting on Mora 04/08/23 at 0935, Push over 1-3 minutes [...] glucose less than 70 mg/dL, Starting on Mora 04/08/23 at 0935, Use immediately following dextrose [...] Every 8 hours scheduled, First dose on Mora 04/08/23 at 1100, Notify prescriber if INR greater than 1.9, hemoglobin less than 10 mg/dL, aPTT greater than 40 seconds, and/or platelet count less than 100,000/mm Look-alike/sound -alike medication - verify indication for use. Observe for bleeding. hydrOXYzine hydrochloride 25 mg oral tablet (18 sources) Antihistamine Start: 11-12-2018 take 25 mg by mouth twice daily as needed 25 mg, Oral, 2 TIMES DAILY PRN, Starting on 04/28/23 at 1159, Until Discontinued, Itching Start: 11-12-2018 take 1 tablet by kecia th every twelve hours as needed hydrOXYzine hydrochloride 25 mg Tab 25 mg = 1 tab(s), Oral, q12hr, PRN as needed for itching, Refills(s) 0 Start Date: 06/24/22 Status: Ordered Start: 11-12-2018 take 1 tablet by kecia th four times daily hydrOXYzine hydrochloride 25 mg Tab 25 mg = 1 tab(s), Oral, QID, Refills(s) 0, Anxiety Start Date: 12/16/18 Status: Ordered iopamidol (ISOVUE-370) 76 % injection 75 mL [...] Start: 09-02-2022 take 1 tablet by kecia th twice daily 150 mg, Oral, 2 TIMES DAILY, First dose on 09/02/22 at 2330, Until Discontinued Swallow tablets whole; do not crush, split, or chew. Start: 05-12-2022 take 1 tablet by kecia th twice daily 150 mg, Oral, 2 TIMES DAILY, First dose on Sun05/12/22 at 1100, Until Discontinued Swallow tablets whole; do not crush, split, or chew. Start: 08-14-2015 take 1 tablet by kecia th twice daily VIMPAT 150 mg tablet Indications: Seizures (CMS-HCC) Take 1 tablet (150 mg total) by mouth 2 (two) times a day. 60 each 0 03/07/2018 Active take 1 tablet by kecia th once daily lacosamide (VIMPAT) 150 MG TABS tablet Take 150 mg by mouth daily 0 Active lacosamide (VIMPAT) 150 mg i n sodium chloride 0.9 % 65 mL IVPB (4 sources) Start: 04-26-2023 End: 04-28-2023 lacosamide (VIMPAT) 150 mg i n sodium chloride 0.9 % 65 mL IVPB Start: 09-04-2022 End: 09-06-2022 lacosamide (VIMPAT) 150 mg i n sodium chloride 0.9 % 65 mL IVPB Start: 06-22-2022 lacosamide ( MPAT) 150 mg in sodium chloride 0.9 % 65 mL IVPB Start: 05-09-2022 End: 05-12-2022 lacosamide (VIMPAT) 150 mg i n sodium chloride 0.9 % 65 mL IVPB lamoTRIgine 100 mg oral tablet (20 sources) Mood Stabilizer, Anti-epileptic Agent Start: 04-28-2023 take 600 mg by mouth once daily 600 mg, Oral, Nightly, First dose on Sun04/28/23 at 2100, Until Discontinued Start: 04-28-2023 take 400 mg by mouth once daily in the morning 400 mg, Oral, EVERY MORNING, First dose on Sun04/28/23 at 1230, Until Discontinued Start: 04-18-2023 End: 04-20-2023 take 400 mg by mouth once daily 400 mg, oral, Daily, F irst dose on Sun04/18/23 at 0900, Look-alike/sound-alike medication - verify indication for use. Start: 04-17-2023 End: 04-20-2023 take 600 mg by mouth once daily 600 mg, oral, Nightly, First dose on Sun04/17/23 at 2200, Look-alike/sound-alike medication - verify indication for use. Start: 09-06-2022 lamoTRIgine (L AMICTAL) tablet 400 mg Start: 09-02-2022 take 600 mg by mouth once rodriguez y 600 mg, Oral, Nightly, First dose on 09/02/22 at 2330, Until Discontinued Start: 04-03-2017 End: 04-08-2023 take 2 tablets by mouth once daily in the morning lamotrigine 200 mg Tab 400 mg = 2 tab(s), Oral, qAM, Refills(s) 0 Start Date: 06/24/22 Status: Ordered Start: 08-14-2015 take 3 tablets by mo uth at bedtime lamotrigine 200 mg Tab 600 mg = 3 tab(s), Oral, Bedtime, Refills(s) 0, Seizure Start Date: 08/14/15 Status: Ordered Start: 08-14-2015 lamotrigine 20 0 mg Tab See Instructions, pt takes 2 tablets in am and 3 tablets at hs., Refills(s) 0, Seizure Start Date: 08/14/15 Status: Ordered take 1 tablet by kecia th twice daily lamoTRIgine (LAMICTAL) 200 MG tablet Take 200 mg by mouth 2 times daily 0 Active latanoprost 0.05 mg/ml ophthalmic solution (18 sources) Prostaglandin Analog Start: 04-09-2023 End: 04-20-2023 1 drop, both eyes, Nightly, First dose on Sun04/09/23 at 2200 Start: 09-02-2022 1 drop, Both [...] into both eyes nightly 0 Active levETIRAcetam (KEPPRA) 1,500 mg in [...] over 15 Minutes, Bedtime, First dose on 04/08/23 at 2200, Look-alike/sound-alike medication. Verify indication for use. levoFLOXacin 250 mg oral tablet (14 sources) Quinolone Antimicrobial End: 05-12-2022 take 2 tablets by mouth once daily levofloxacin (LEVAQUIN) 250 MG tablet Take 500 mg by mouth daily 0 05/12/2022 Discontinued (Therapy completed) 1 ml LORazepam 2 mg/ml injection (20 sources) Benzodiazepine Start: 04-26-2023 End: 04-26-2023 LORazepam (ATIVAN) injection 2 mg Start: 04-26-2023 LORazepam (ATI VAN) injection 4 mg Start: 04-26-2023 End: 04-26-2023 LORazepam (ATIVAN) 2 MG/ML injection Start: 04-02-2017 take 1 tablet by kecia th once daily as needed for anxiety LORazepam (ATIVAN) 0.5 mg tablet Indications: Anxiety Take 1 tablet (0.5 mg total) by mouth daily as needed for anxiety or seizures. 30 tablet 0 04/02/2017 Active Start: 04-02-2017 take 1 tablet by kecia th every eight hours as needed LORazepam 0.5 mg Tab 0.5 mg = 1 tab(s), Oral, q8hr, PRN Other (see comment), Refills(s) 0 Start Date: 06/24/22 Status: Ordered Start: 04-02-2017 take 1 tablet by kecia th three times daily as needed LORazepam 0.5 mg Tab See Instructions, PRN Seizure, 1 tab(s) Oral TID, # 24 tab(s), Refills(s) 0 Start Date: 02/05/21 Status: Ordered magnesium oxide 400 mg oral tablet (6 sources) Start: 04-19-2023 End: 04-20-2023 take 400 mg by mouth once daily 400 mg, Oral, DAILY, First dose on 04/28/23 at 1230, Until Discontinued meclizine hydrochloride 12.5 mg oral tablet (18 sources) Antiemetic Start: 04-28-2023 take 25 mg by mouth once daily 25 mg, Oral, DAILY, First dose on Sun04/28/23 at 1230, Until Discontinued Start: 12-16-2018 take 1 tablet by kecia th three times daily meclizine 25 mg oral tablet, chewable 25 mg = 1 tab(s), Chewed, TID, Refills(s) 0, Dizziness Start Date: 12/16/18 Status: Ordered Start: 11-12-2018 take 1 tablet by mouth once da barbie meclizine (ANTIVERT) 25 mg tablet Take 1 tablet (25 mg total) by mouth daily. 30 tablet 0 11/12/2018 Active Start: 11-12-2018 take 1 tablet by kecia every eight hours as needed for dizziness meclizine 25 mg Tab 25 mg = 1 tab(s), Oral, q8hr, PRN Dizziness, FOR DIZZINESS, Refills(s) 0 Start Date: 06/24/22 Status: Ordered ondansetron 4 mg disintegrating oral tablet (20 sources) Serotonin-3 Receptor Antagonist Start: 04-28-2023 take 4 mg by mouth every six hours as needed 4 mg, Oral, EVERY 6 HOURS PRN, Starting on Sun04/28/23 at 1159, Until Discontinued, Nausea, Vomiting Start: 04-24-2023 take 4 mg by mouth e very six hours as needed 4 mg, IntraVENous, EVERY 6 HOURS PRN, Starting on Sun04/24/23 at 2247, Until Discontinued, Nausea, Vomiting Administer if oral route cannot be used. Start: 09-02-2022 End: 09-02-2022 ondansetron (ZOFRAN) injecti on 4 mg Start: 06-24-2022 End: 04-25-2023 take 1 tablet by mouth every six hours as needed for nausea ondansetron 4 mg Tab 4 mg = 1 tab(s), Oral, q6hr, PRN Nausea/Vomiting, Refills(s) 0 Start Date: 06/24/22 Status: Ordered Start: 06-21-2022 End: 06-21-2022 ondansetron (ZOFRAN) injecti on 4 mg Start: 05-08-2022 End: 05-08-2022 ondansetron (ZOFRAN) injecti on 4 mg Start: 04-03-2017 take 1 tablet by kecia th every twelve hours as needed for nausea and vomiting and nausea and nausea ondansetron ODT (ZOFRAN-ODT) 4 mg disintegrating tablet Indications: Nausea Dissolve 1 tablet (4 mg total) on tongue every 12 (twelve) hours as needed for nausea or vomiting. 60 tablet 1 04/03/2017 Active Start: 10-18-2016 take 4 mg by mouth e very twelve hours as needed for nausea and vomiting and nausea and nausea Start: 10-18-2016 take 1 tablet by kecia th three times daily as needed for nausea ondansetron 4 mg Dis Tab 4 mg = 1 tab(s), Oral, TID, PRN Nausea/Vomiting, Refills(s) 0 Start Date: 10/18/16 Status: Ordered 24 hr oxybutynin chloride 10 mg extended release oral tablet (11 sources) Cholinergic Muscarinic Antagonist Start: 09-06-2022 oxybutynin (DITROPAN-XL) extended release tablet 10 mg Start: 06-24-2022 take 1 tablet by kecia th once daily oxybutynin 10 mg ER Tab 10 mg = 1 tab(s), Oral, Daily, Refills(s) 0 Start Date: 06/24/22 Status: Ordered take 1 tablet by kecia th every twenty-four hours in the morning oxybutynin XL (DITROPAN-XL) 10 mg 24 hr tablet Take 1 tablet (10 mg total) by mouth in the morning. 0 Active polyethylene glycol [id number] [id number] mg powder for oral solution (14 sources) Osmotic Laxative Start: 04-28-2023 17 g, Oral, D AILY, First dose on 04/28/23 at 1230, Until Discontinued Stir and dissolve one packet of powder (17 g) in any 4 to 8 ounces of beverage (cold, hot or room temperature) then drink Start: 09-02-2022 17 g, Oral, DA BARBIE PRN, Starting on 09/02/22 at 2314, Until [...] ml potassium chloride 0. 1 meq/ml injection (8 sources) Start: 04-26-2023 End: 04-26-2023 potassium chloride 10 mEq/10 0 mL IVPB (Peripheral Line) Start: 04-24-2023 potassium chlo ride (KLOR-CON M) extended release tablet 40 mEq Start: 04-08-2023 End: 04-20-2023 10 mEq, intravenous, at 100 mL/hr, Administer over 60 Minutes, As needed, POTASSIUM REPLACEMENT, Starting on 04/08/23 at 1151, Potassium level 3 mmol/L or [...] hour 50 mL/hr, intravenous, Continuous, Starting on 04/08/23 at 0945 primidone 250 mg oral tablet (20 sources) Anti-epilept ic Agent Start: 04-28-2023 take 375 mg by mouth once daily 375 mg, Oral, NIGHTLY, First dose on 04/28/23 at 2100, Until Discontinued Start: 04-17-2023 End: 04-20-2023 take 375 mg by mouth once daily 375 mg, oral, Nightly, First dose on Sun04/17/23 at 2200 Start: 06-24-2022 End: 04-20-2023 take 250 mg by mouth once daily in the morning 250 mg, Oral, EVERY MORNING, First dose on 04/28/23 at 1230, Until Discontinued Start: 04-03-2017 End: 04-08-2023 take 375 mg by mouth once daily 375 mg, Oral, NIGHTLY, First dose on 09/02/22 at 2330, Until Discontinued Start: 08-14-2015 primidone [...] by mouth once daily primidone (MYSOLINE) 250 mg tablet Take 1.5 tablets (375 mg total) by mouth nightly. 0 Active prochlorperazine 5 mg/ml injectable solution (1 source) Phenothiazine Start: 04-24-2023 take 5 mg intravenously every six hours as needed 10 mg, IntraVENous, EVERY 6 HOURS PRN, Starting on Sun04/24/23 at 2247, Until Discontinued, Nausea If administering IV push, administer at a maximum rate of 5 mg/minute. If zofran doesn't help 1000 ml sodium chloride 9 mg/ml injection (20 sources) Start: 04-24-2023 End: 04-26-2023 IntraVENous, at 50 mL/hr, CONTINUOUS, Starting on Sun04/24/23 at 2315, For 48 hours Start: 04-24-2023 IntraVENous, a t 5-250 mL/hr, PRN, if patient receiving piggyback infusions and maintenance fluids are not ordered OR KVO fluids to protect IV site / prevent frequent line interruptions/ long duration, Starting on Sun04/24/23 at 2247 For piggyback infusion, administer at same rate [...] less into rate field of order. Start: 04-24-2023 take 1 dose intraven ously twice daily 5-40 mL, IntraVENous, EVERY 12 HOURS SCHEDULED (2 times per day), First dose on Sun04/24/23 at 2315, Until Discontinued For Line Patency: Peripheral IV [...] or Central Line = 20 mL/lumen Start: 04-24-2023 take 10 mL intraveno usly once as needed 10 mL, IntraVENous, PRN, Starting on Sun04/24/23 at 2247, Until Discontinued, Line Care, After every IV line use Start: 04-08-2023 End: 04-20-2023 3 mL, intravenous, Every 12 hours scheduled, First dose on Sun04/08/23 at 0945 Start: 04-08-2023 End: 04-20-2023 3 mL, intravenous, As needed , line care, before and after each intermittent use, Starting on Sun04/08/23 at 0935 Start: 04-08-2023 End: 04-20-2023 take 20 mL intravenously every hour as needed 20 mL/hr, intravenous, Continuous PRN, to maintain patency of lines, Starting on 04/08/23 at 0935 Start: 04-08-2023 End: 04-20-2023 take 25 mL intravenously every hour as needed 25 mL, intravenous, at 100 mL/hr, Administer over 15 Minutes, As needed, line care, line care after IVPB administration, Starting on 04/08/23 at 0935 Start: 09-02-2022 IntraVENous, a [...] on 09/02/22 at 2330, Until Discontinued Start: 09-02-2022 take 10 mL intraveno usly once as needed 10 mL, IntraVENous, PRN, Starting on 09/02/22 at 2314, Until Discontinued, Line Care, After [...] oral capsule (20 sources) alpha-Adrenergic Ginette Start: 04-28-2023 0.4 mg, Oral, 2 TIMES DAILY, First dose on 04/28/23 at 1230, Until Discontinued Do not crush or break. Give 30 minutes after a full meal to limit risk of orthostatic hypotension/falls. Start: 11-11-2022 End: 11-11-2022 tamsulosin 0.4 mg [...] 06/27/22 Stop Date: 06/27/22 Status: Completed Start: 04-03-2017 End: 07-05-2021 take 1 capsule by mouth twice daily tamsulosin 0.4 mg Cap 0.4 mg = 1 cap(s), Oral, BID, Refills(s) 0 Start Date: 06/24/22 Status: Ordered take 1 capsule by mo [facility] once daily tamsulosin (FLOMAX) 0.4 MG capsule [...] End: 04-15-2023 1 mg, intravenous, Once, On 04/15/23 at 1100, For 1 dose, Look-alike/sound-alike medication - verify indication for use. (1 source) Start: 04-10-2023 End: 04-10-2023 take 60 mL by mouth once 60 mL, oral, Once in imaging, contrast, Radiology, Starting on Tu04/10/23 at 0938, For 1 dose, Additional Imaging [...] hours, First dose on Sun04/08/23 at 1430 Problems Active Problems Problem Classification Problem Date Documented Da te Episodic/Chronic Abdominal hernia (11 sources) Hernia of abdominal cavity; Translations: [Other and unspecified ventral hernia with obstruction, without gangrene] Onset: 06-13-2021 10-18-2016 Episodic Cardiac dysrhythmias (1 source) Bradycardia, unspecified; Translations: [Bradycardia, unspecified] Onset: 04-08-2023 Episodic Developmental disorders (20 sources) Severe intellectual disability; Translations: [Severe intellectual disabilities] Onset: 10-20-2013 08-12-2018 Chronic Diverticulosis and diverticulitis (10 sources) Diverticulitis 10-18-2016 Chronic Epilepsy; convulsions (20 sources) Epilepsy; Translations: [Epilepsy, unspecified, not intractable, without status epilepticus] Onset: 12-14-2015 12-14-2015 Chronic Epilepsy; convulsions (20 sources) Seizure; Translations: [Unspecified convulsions] Onset: 10-18-2013 10-18-2013 Episodic Fluid and electrolyte disorders (11 sources) Dehydration; Translations: [Hypokalemia] Onset: 06-25-2022 10-18-2016 Episodic Gastrointestinal hemorrhage (2 sources) Melena; Translations: [Melena] Onset: 01-18-2023 Episodic Genitourinary symptoms and ill-defined conditions (10 sources) 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 Chronic Genitourinary symptoms and ill-defined conditions (10 sources) Nocturia 10-18-2018 Episodic Hyperplasia of prostate (20 sources) Benign prostatic hypertrophy with outflow obstruction; Translations: [Benign prostatic hyperplasia] Onset: 06-13-2021 10-18-2018 Chronic Intestinal obstruction without hernia (20 sources) Small bowel obstruction; Translations: [Unspecified intestinal obstruction, unspecified as to partial versus complete obstruction] Onset: 10-18-2013 10-22-2013 Episodic Nausea and vomiting (7 sources) Vomiting; Translations: [Vomiting, unspecified] Onset: 06-21-2022 Episodic Nutritional deficiencies (11 sources) Mild protein-calorie malnutrition; Translations: [Malnutrition (calorie)] Onset: 08-08-2016 Resolved: 09-06-2022 Chronic Osteoarthritis (3 sources) Unspecified osteoarthritis, unspecified site; Translations: [Osteoarthritis] Onset: 06-13-2021 02-15-2017 Chronic Other bone disease and musculoskeletal deformities (2 sources) Osteopenia; Translations: [Other specified disorders of bone density and structure, unspecified site] 10-17-2017 Episodic Other connective tissue disease (2 sources) Other symptoms and signs involving the musculoskeletal system; Translations: [Other musculoskeletal symptoms referable to limbs] 02-15-2017 Episodic Other gastrointestinal disorders (10 sources) History of bowel obstruction 10-18-2016 Episodic [...] the digestive system] Onset: 01-10-2023 Episodic Other gastrointestinal disorders (1 source) Dysphagia; Translations: [Dysphagia, unspecified] Onset: 02-11-2023 02-11-2023 Episodic Other inflammatory condition of skin (2 sources) Seborrheic dermatitis; Translations: [Seborrheic dermatitis, unspecified] 01-01-2018 Episodic Other male genital disorders (10 sources) Hydrocele 10-18-2016 Episodic Other nervous system disorders (10 sources) H/O: brain disorder 10-18-2016 Episodic Other nervous system disorders (1 source) H/O: epilepsy; Translations: [Personal history of other diseases of the nervous system and sense organs] Episodic Other nervous system disorders (2 sources) Impairment of balance; Translations: [Other abnormalities of gait and mobility] 02-15-2017 Episodic Other nutritional; endocrine; and metabolic disorders (2 sources) Obesity; Translations: [Obesity, unspecified] 02-15-2017 Chronic Other nutritional; endocrine; and metabolic disorders (1 source) Delay in physiological development; Translations: [Unspecified lack of expected normal physiological development in childhood] Onset: 06-25-2022 Episodic Other screening for suspected conditions (not mental disorders or infectious disease) (3 sources) Encounter for screening for malignant neoplasm of prostate; Translations: [INR raised] Onset: 02-11-2023 Episodic Residual codes; unclassified (2 sources) Obstructive sleep apnea syndrome; Translations: [Obstructive sleep apnea (adult) (pediatric)] Onset: 08-09-2017 02-21-2024 Chronic Residual codes; unclassified (1 source) Past history of procedure; Translations: [Presence of other specified functional implants] Onset: 02-11-2023 02-11-2023 Chronic Unclassified (1 source) Unspecified convulsions / R56.9(ICD-9) [...] ill Onset: 04-07-2023 Unclassified (1 source) EMS///Amol Kayla is a 68 year old male with [...] failure, unspecified] Onset: 05-09-2022 Episodic Allergic reactions (2 sources) Eczema; Translations: [Dermatitis, unspecified] Onset: 04-03-2017 04-03-2017 Episodic Mood disorders (1 source) Mood disorders Onset: 04-09-2023 04-09-2023 Other aftercare (1 source) Other eligibility technician (current) drug therapy; Translations: [OTH SKILLED NURSING CURRENT DRUG THERAPY] Onset: 06-13-2021 Episodic Other aftercare (2 sources) Post-discharge follow-up; Translations: [Encounter for follow-up examination after completed treatment for conditions other than malignant neoplasm] Onset: 12-10-2018 12-10-2018 Episodic Other circulatory disease (2 sources) Respiratory crackles; Translations: [Other specified symptoms and signs involving the circulatory and respiratory systems] Onset: 11-12-2018 11-12-2018 Episodic Other diseases of kidney and ureters (2 sources) Other obstructive and reflux uropathy; Translations: [Other obstructive and reflux uropathy] Onset: 05-05-2022 Episodic Other ear and sense organ disorders (2 sources) Hearing loss; Translations: [Unspecified hearing loss, unspecified [...] Test Name Value Interpretation Reference Range Facility Basic Metabolic Profon 05-06 Anion gap [Moles/Vol] 5 mmol/L Low 9-17 Nahomi [facility] Comment on above: Performed By: #### B BEVERLY, MIESHA #### [facility] [address] [address] Program Planner: Hadley Smith MD BUN/CRE Ratio 6 Low 9-20 [facility] Comment on above: Performed By: #### B MPX, CDP #### [facility] [address] [facility] [place] [address] Program Planner: Hadley Smith MD Calcium [Mass/Vol] 8.2 mg/dL Low 8.6-10.4 [facility] Comment on above: Performed By: #### B MPX, CDP #### [facility] [address] [facility] [place] [address] Program Planner: Hadley Smith MD Chloride [Moles/Vol] 109 mmol/L High 98-107 [facility] Comment on above: Performed By: #### B MPX, CDP #### [facility] [address] [facility] [place] [address] Program Planner: Hadley Smith MD CO2 [Moles/Vol] 28 mmol/L Normal 20-31 [facility] Comment on above: Performed By: #### B MPX, CDP #### [facility] [address] [facility] [place] [address] Program Planner: Hadley Smith MD Creatinine [Mass/Vol] 0.9 mg/dL Normal 0.7-1.2 [facility] Comment on above: Performed By: #### B MPX, CDP #### [facility] [address] [facility] [place] [address] Program Planner: Hadley Smith MD GFR/1.73 sq M.predicted among non-blacks MDRD (S/P/Bld) [Vol rate/Area] mL/min/{1.73_m2} Normal >60 [facility] Comment on above: Result Comment: These [...] tubular secretion. Performed By: #### B MPX, CDP #### [facility] [address] [facility] [place] [address] Program Planner: Hadley Smith MD Glucose [Mass/Vol] 105 mg/dL High 70-99 [facility] Comment on above: Performed By: #### B MPX, CDP #### [facility] [facility] [place] [address] Program Planner: Hadley Smith MD Potassium [Moles/Vol] 4.6 mmol/L Normal 3.7-5.3 [facility] Comment on above: Performed By: #### B MPX, CDP #### [facility] [address] [facility] [place] [address] Program Planner: Hadley Smith MD Sodium [Moles/Vol] 142 mmol/L Normal 135-144 [facility] Comment on above: Performed By: #### B MPX, CDP #### [facility] [place] [address] Program Planner: Hadley Smith MD Urea nitrogen [Mass/Vol] 5 mg/dL Low 8-23 [facility] Comment on above: Performed By: #### B MPX, CDP #### [facility] [place] [address] Program Planner: Hadley Smith MD Magnesiumon 05-07-2023 Magnesium [Mass/Vol] 1.4 mg/dL Low 1.6-2.6 [facility] Comment on above: Performed By: #### B MPX, CDP #### [facility] [address] [place] [address] Program Planner: Hadley Smith MD Basic Metabolic Profon 05-05 Anion gap [Moles/Vol] 7 mmol/L Low 9-17 [facility] Comment on above: Performed By: #### B MPX, CDP #### [facility] [address] [place] [address] Program Planner: Hadley Smith MD BUN/CRE Ratio Can not be calculated Normal 9-20 [facility] Comment on above: Performed By: #### B MPX, CDP #### [facility] [address] [place] [address] Program Planner: Hadley Smith MD Calcium [Mass/Vol] 8.3 mg/dL Low 8.6-10.4 [facility] Comment on above: Performed By: #### B MPX, CDP #### [facility] [address] [place] [address] Program Planner: Hadley Smith MD Chloride [Moles/Vol] 111 mmol/L High 98-107 [facility] Comment on above: Performed By: #### B MPX, CDP #### [facility] [facility] [place] [address] Program Planner: Hadley Smith MD CO2 [Moles/Vol] 25 mmol/L Normal 20-31 [facility] Comment on above: Performed By: #### B MPX, CDP #### [facility] [address] [place] [address] Program Planner: Hadley Smith MD Creatinine [Mass/Vol] 0.8 mg/dL Normal 0.7-1.2 [facility] Comment on above: Performed By: #### B MPX, CDP #### [facility] [address] [facility] [place] [address] Program Planner: Hadley Smith MD GFR/1.73 sq M.predicted among non-blacks MDRD (S/P/Bld) [Vol rate/Area] mL/min/{1.73_m2} Normal >60 [facility] Comment on above: Result Comment: These [...] renal tubular secretion. Performed By: #### B LAWX, CDP #### [facility] [address] [place] [address] Program Planner: Hadley Smith MD Glucose [Mass/Vol] 92 mg/dL Normal 70-99 [facility] Comment on above: Performed By: #### B MPX, CDP #### [facility] [place] [address] Program Planner: Hadley Smith MD Potassium [Moles/Vol] 3.3 mmol/L Low 3.7-5.3 [facility] Comment on above: Performed By: #### B LAWX, CDP #### [facility] [address] [facility] [place] [address] Program Planner: Hadley Smith MD Sodium [Moles/Vol] 143 mmol/L Normal 135-144 [facility] Comment on above: Performed By: #### B MPX, CDP #### [facility] [place] [address] Program Planner: Hadley Smith MD Urea nitrogen [Mass/Vol] mg/dL Low 8-23 [facility] Comment on above: Performed By: #### B MPX, CDP #### [facility] [address] [place] [address] Program Planner: Hadley Smith MD Basic Metabolic Profon 05-04 Anion gap [Moles/Vol] 6 mmol/L Low 9-17 [facility] Comment on above: Performed By: #### B MPX, CDP #### [facility] [address] [place] [address] Program Planner: Hadley Smith MD BUN/CRE Ratio 3 Low 9-20 [facility] Comment on above: Performed By: #### B MPX, CDP #### [facility] [address] [place] [address] Program Planner: Hadley Smith MD Calcium [Mass/Vol] 7.9 mg/dL Low 8.6-10.4 [facility] Comment on above: Performed By: #### B MPX, CDP #### [facility] [address] [place] [address] Program Planner: Hadley Smith MD Chloride [Moles/Vol] 113 mmol/L High 98-107 [facility] Comment on above: Performed By: #### B MPX, CDP #### [facility] [facility] [address] [facility] [place] [address] Program Planner: Hadley Smith MD CO2 [Moles/Vol] 23 mmol/L Normal 20-31 [facility] Comment on above: Performed By: #### B MPX, CDP #### [facility] [address] [place] [address] Program Planner: Hadley Smith MD Creatinine [Mass/Vol] 0.7 mg/dL Normal 0.7-1.2 [facility] Comment on above: Performed By: #### B MPX, CDP #### [facility] [address] [facility] [place] [address] Program Planner: Hadley Smith MD GFR/1.73 sq M.predicted among non-blacks MDRD (S/P/Bld) [Vol rate/Area] mL/min/{1.73_m2} Normal >60 [facility] Comment on above: Result Comment: These [...] tubular secretion. Performed By: #### B MPX, CDP #### [facility] [address] [place] [address]. [place] [address] Program Planner: Hadley Smith MD Glucose [Mass/Vol] 97 mg/dL Normal 70-99 [facility] Comment on above: Performed By: #### B MPX, CDP #### [facility] [address] [place] [address]. [place] [address] Program Planner: Hadley Smith MD Potassium [Moles/Vol] 3.7 mmol/L Normal 3.7-5.3 [facility] Comment on above: Performed By: #### B MPX, CDP #### [facility] [place] [address] Program Planner: Hadley Smith MD Sodium [Moles/Vol] 142 mmol/L Normal 135-144 [facility] Comment on above: Performed By: #### B MPX, CDP #### [facility] [address] [place] [address]. [place] [address] Program Planner: Hadley Smith MD Urea nitrogen [Mass/Vol] 2 mg/dL Low 8-23 [facility] Comment on above: Performed By: #### B MPX, CDP #### [facility] [address] [place] [address] Program Planner: Hadley Smith MD CBC with Diffon 05-05-2023 Abs. Basophil 0.04 k/uL Normal 0.00-0.20 [facility] Comment on above: Performed By: #### B MPX, CDP #### [facility] [address] [place] [address] Program Planner: Hadley Smith MD Abs.Imm.Granulocyte 0.01 k/uL Normal 0.00-0.30 [facility] Comment on above: Performed By: #### B MPX, CDP #### [facility] [address] [place] [address] Program Planner: Hadley Smith MD Abs.Neutrophil (Seg) 2.76 k/uL Normal 1.50-8.10 [facility] Comment on above: Performed By: #### B MPX, CDP #### [facility] [address] [place] [address] Program Planner: Hadley Smith MD Basophils/100 WBC (Bld) 1 % Normal 0-2 [facility] Comment on above: Performed By: #### B MPX, CDP #### [facility] [address] [place] [address] Program Planner: Hadley Smith MD Eosinophils (Bld) [#/Vol] 0.16 10*3/uL Normal 0.00-0.44 [facility] Comment on above: Performed By: #### B MPX, CDP #### [facility] [address] [place] [address] Program Planner: Hadley Smith MD Eosinophils/100 WBC (Bld) 3 % Normal 1-4 [facility] Comment on above: Performed By: #### B MPX, CDP #### [facility] [address] [place] [address] Program Planner: Hadley Smith MD Erythrocyte distribution width (RBC) [Ratio] 12.8 % Normal 11.8-14.4 [facility] Comment on above: Performed By: #### B MPX, CDP #### [facility] [address] [place] [address] Program Planner: Hadley Smith MD Hematocrit (Bld) [Volume fraction] 30.3 % Low 40.7-50.3 [facility] Comment on above: Performed By: #### B MPX, CDP #### [facility] [address] [place] [address] Program Planner: Hadley Smith MD Hemoglobin (Bld) [Mass/Vol] 9.7 g/dL Low 13.0-17.0 [facility] Comment on above: Performed By: #### B MPX, CDP #### [facility] [address] [place] [address] Program Planner: Hadley Smith MD Immature granulocytes/100 WBC (Bld) 0 % Normal 0 [facility] Comment on above: Performed By: #### B MPX, CDP #### [facility] [address] [place] [address] Program Planner: Hadley Smith MD Lymphocytes (Bld) [#/Vol] 1.65 10*3/uL Normal 1.10-3.70 [facility] Comment on above: Performed By: #### B MPX, CDP #### [facility] [address] [facility] [place] [address] Program Planner: Hadley Smith MD Lymphocytes/100 WBC (Bld) 32 % Normal 24-43 [facility] Comment on above: Performed By: #### B MPX, CDP #### [facility] [address] [facility] [place] [address] Program Planner: Hadley Smith MD MCH (RBC) [Entitic mass] 32.8 pg Normal 25.2-33.5 [facility] Comment on above: Performed By: #### B MPX, CDP #### [facility] [address] [place] [address]. [place] [address] Program Planner: Hadley Smith MD MCHC (RBC) [Mass/Vol] 32.0 g/dL Normal 28.4-34.8 [facility] Comment on above: Performed By: #### B MPX, CDP #### [facility] [address] [place] [address]. [place] [address] Program Planner: Hadley Smith MD MCV (RBC) [Entitic vol] 102.4 fL Normal 82.6-102.9 [facility] Comment on above: Performed By: #### B MPX, CDP #### [facility] [address] [place] [address]. [place] [address] Program Planner: Hadley Smith MD Monocytes (Bld) [#/Vol] 0.50 10*3/uL Normal 0.10-1.20 [facility] Comment on above: Performed By: #### B MPX, CDP #### [facility] [address] [place] [address]. [place] [address] Program Planner: Hadley Smith MD Monocytes/100 WBC (Bld) 10 % Normal 3-12 [facility] Comment on above: Performed By: #### B MPX, CDP #### [facility] [address] [facility] [place] [address] Program Planner: Hadley Smith MD Neutrophil (Seg) 54 % Normal 36-65 [facility] Comment on above: Performed By: #### B MPX, CDP #### [facility] [address] [facility] [place] [address] Program Planner: Hadley Smith MD NRBC Automated 0.0 per 100 WBC Normal 0.0 [facility] Comment on above: Performed By: #### B MPX, CDP #### [facility] [address] [place] [address]. [place] [address] Program Planner: Hadley Smith MD Platelet mean volume (Bld) [Entitic vol] 9.9 fL Normal 8.1-13.5 [facility] Comment on above: Performed By: #### B MPX, CDP #### [facility] [address] [place] [address]. [place] [address] Program Planner: Hadley Smith MD Platelets (Bld) [#/Vol] 154 10*3/uL Normal 138-453 [facility] Comment on above: Performed By: #### B MPX, CDP #### [facility] [address] [place] [address]. [place] [address] Program Planner: Hadley Smith MD RBC (Bld) [#/Vol] 2.96 10*6/uL Low 4.21-5.77 [facility] Comment on above: Performed By: #### B MPX, CDP #### [facility] [place] [address] Program Planner: Hadley Smith MD WBC (Bld) [#/Vol] 5.1 10*3/uL Normal 3.5-11.3 [facility] Comment on above: Performed By: #### B MPX, CDP #### [facility] [address] [place] [address] Program Planner: Hadley Smith MD Magnesiumon 05-05-2023 Magnesium [Mass/Vol] 1.3 mg/dL Low 1.6-2.6 [facility] Comment on above: Performed By: #### H H #### [facility] [address] [place] [address] Program Planner: Hadley Smith MD Basic Metab w/rfx MGon 05-03 Anion gap [Moles/Vol] 6 mmol/L Low 9-17 [facility] Comment on above: Performed By: #### H H #### [facility] [address] [place] [address] Program Planner: Hadley Smith MD BUN/CRE Ratio 6 Low 9-20 [facility] Comment on above: Performed By: #### H H #### [facility] [address] [place] [address] Program Planner: Hadley Smith MD Calcium [Mass/Vol] 8.0 mg/dL Low 8.6-10.4 [facility] Comment on above: Performed By: #### H H #### [facility] [address] [place] [address] Program Planner: Hadley Smith MD Chloride [Moles/Vol] 114 mmol/L High 98-107 [facility] Comment on above: Performed By: #### H H #### [facility] [address] [place] [address] Program Planner: Hadley Smith MD CO2 [Moles/Vol] 23 mmol/L Normal 20-31 [facility] Comment on above: Performed By: #### H H #### [facility] [address] [place] [address] Program Planner: Hadley Smith MD Creatinine [Mass/Vol] 0.8 mg/dL Normal 0.7-1.2 [facility] Comment on above: Performed By: #### H H #### [facility] [address] [facility] [place] [address] Program Planner: Hadley Smith MD GFR/1.73 sq M.predicted among non-blacks MDRD (S/P/Bld) [Vol rate/Area] mL/min/{1.73_m2} Normal >60 [facility] Comment on above: Result Comment: These [...] affects renal tubular secretion. Performed By: #### H H #### [facility] [address] [facility] [place] [address] Program Planner: Hadley Smith MD Glucose [Mass/Vol] 101 mg/dL High 70-99 [facility] Comment on above: Performed By: #### H H #### [facility] [address] [facility] [place] [address] Program Planner: Hadley Smith MD Potassium [Moles/Vol] 3.7 mmol/L Normal 3.7-5.3 [facility] Comment on above: Performed By: #### H H #### [facility] [address] [facility] [place] [address] Program Planner: Hadley Smith MD Sodium [Moles/Vol] 143 mmol/L Normal 135-144 [facility] Comment on above: Performed By: #### H H #### [facility] [address] [place] [address] Program Planner: Hadley Smith MD Urea nitrogen [Mass/Vol] 5 mg/dL Low 8-23 [facility] Comment on above: Performed By: #### H H #### [facility] [address] [place] [address] Program Planner: Hadley Smith MD CBC with Diffon 05-04-2023 Abs. Basophil 0.03 k/uL Normal 0.00-0.20 [facility] Comment on above: Performed By: #### H H #### [facility] [address] [place] [address] Program Planner: Hadley Smith MD Abs.Imm.Granulocyte 0.01 k/uL Normal 0.00-0.30 [facility] Comment on above: Performed By: #### H H #### [facility] [address] [place] [address] Program Planner: Hadley Smith MD Abs.Neutrophil (Seg) 2.27 k/uL Normal 1.50-8.10 [facility] Comment on above: Performed By: #### H H #### [facility] [address] [place] [address] Program Planner: Hadley Smith MD Basophils/100 WBC (Bld) 1 % Normal 0-2 [facility] Comment on above: Performed By: #### H H #### [facility] [address] [place] [address] Program Planner: Hadley Smith MD Eosinophils (Bld) [#/Vol] 0.19 10*3/uL Normal 0.00-0.44 [facility] Comment on above: Performed By: #### H H #### [facility] [place] [address] Program Planner: Hadley Smith MD Eosinophils/100 WBC (Bld) 5 % High 1-4 [facility] Comment on above: Performed By: #### H H #### [facility] [address] [place] [address] Program Planner: Hadley Smith MD Erythrocyte distribution width (RBC) [Ratio] 12.6 % Normal 11.8-14.4 [facility] Comment on above: Performed By: #### H H #### [facility] [address] [place] [address] Program Planner: Hadley mSith MD Hematocrit (Bld) [Volume fraction] 28.5 % Low 40.7-50.3 [facility] Comment on above: Performed By: #### H H #### [facility] [address] [place] [address] Program Planner: Hadley Smith MD Hemoglobin (Bld) [Mass/Vol] 9.3 g/dL Low 13.0-17.0 [facility] Comment on above: Performed By: #### H H #### [facility] [address] [place] [address] Program Planner: Hadley Smith MD Immature granulocytes/100 WBC (Bld) 0 % Normal 0 [facility] Comment on above: Performed By: #### H H #### [facility] [address] [place] [address] Program Planner: Hadley Smith MD Lymphocytes (Bld) [#/Vol] 1.36 10*3/uL Normal 1.10-3.70 [facility] Comment on above: Performed By: #### H H #### [facility] [address] [place] [address] Program Planner: Hadley Smith MD Lymphocytes/100 WBC (Bld) 32 % Normal 24-43 [facility] Comment on above: Performed By: #### H H #### [facility] [address] [place] [address] Program Planner: Hadley Smith MD MCH (RBC) [Entitic mass] 32.9 pg Normal 25.2-33.5 [facility] Comment on above: Performed By: #### H H #### [facility] [address] [place] [address] Program Planner: Hadley Smith MD MCHC (RBC) [Mass/Vol] 32.6 g/dL Normal 28.4-34.8 [facility] Comment on above: Performed By: #### H H #### [facility] [address] [place] [address] Program Planner: Hadley Smith MD MCV (RBC) [Entitic vol] 100.7 fL Normal 82.6-102.9 [facility] Comment on above: Performed By: #### H H #### [facility] [address] [place] [address] Program Planner: Hadley Smith MD Monocytes (Bld) [#/Vol] 0.39 10*3/uL Normal 0.10-1.20 [facility] Comment on above: Performed By: #### H H #### [facility] [address] [place] [address] Program Planner: Hadley Smith MD Monocytes/100 WBC (Bld) 9 % Normal 3-12 [facility] Comment on above: Performed By: #### H H #### [facility] [place] [address] Program Planner: Hadley Smith MD Neutrophil (Seg) 53 % Normal 36-65 [facility] Comment on above: Performed By: #### H H #### [facility] [address] [place] [address] Program Planner: Hadley Smith MD NRBC Automated 0.0 per 100 WBC Normal 0.0 [facility] Comment on above: Performed By: #### H H #### [facility] [address] [place] [address] Program Planner: Hadley Smith MD Platelet mean volume (Bld) [Entitic vol] 9.9 fL Normal 8.1-13.5 [facility] Comment on above: Performed By: #### H H #### [facility] [address] [place] [address] Program Planner: Hadley Smith MD Platelets (Bld) [#/Vol] 144 10*3/uL Normal 138-453 [facility] Comment on above: Performed By: #### H H #### [facility] [address] [place] [address] Program Planner: Hadley Smith MD RBC (Bld) [#/Vol] 2.83 10*6/uL Low 4.21-5.77 [facility] Comment on above: Performed By: #### H H #### [facility] [address] [place] [address] Program Planner: Hadley Smith MD WBC (Bld) [#/Vol] 4.3 10*3/uL Normal 3.5-11.3 [facility] Comment on above: Performed By: #### H H #### [facility] [address] [place] [address] Program Planner: Hadley Smith MD B12/Folate Panelon Cobalamin (Vitamin B12) [Mass/Vol] 506 pg/mL Normal 232-1245 [facility] Comment on above: Performed By: #### B 12FOL #### [address] [address] Program Planner: Chencho Olvera MD Folic Acid 14.1 ng/mL Normal >4.8 [facility] Comment on above: Performed By: #### B 12FOL #### [address] [address] Program Planner: Chencho Olvera MD Basic Metab w/rfx MGon Anion gap [Moles/Vol] 13 mmol/L Normal 9-17 [facility] Comment on above: Performed By: #### P TT #### [facility] [place] [address] Program Planner: Hadley Smith MD BUN/CRE Ratio 16 Normal 9-20 [facility] Comment on above: Performed By: #### P TT #### [facility] [address] [place] [address] Program Planner: Hadley Smith MD Calcium [Mass/Vol] 7.9 mg/dL Low 8.6-10.4 [facility] Comment on above: Performed By: #### P TT #### [facility] [place] [address] Program Planner: Hadley Smith MD Chloride [Moles/Vol] 108 mmol/L High 98-107 [facility] Comment on above: Performed By: #### P TT #### [facility] [address] [place] [address] Program Planner: Hadley Smith MD CO2 [Moles/Vol] 19 mmol/L Low 20-31 [facility] Comment on above: Performed By: #### P TT #### [facility] [address] [facility] [address] Program Planner: Hadley Smith MD Creatinine [Mass/Vol] 0.7 mg/dL Normal 0.7-1.2 [facility] Comment on above: Performed By: #### P TT #### [facility] [address] [facility] [place] [address] Program Planner: Hadley Smith MD GFR/1.73 sq M.predicted among non-blacks MDRD (S/P/Bld) [Vol rate/Area] mL/min/{1.73_m2} Normal >60 [facility] Comment on above: Result Comment: These [...] renal tubular secretion. Performed By: #### P TT #### [facility] [address] [facility] [place] [address] Program Planner: Hadley Smith MD Glucose [Mass/Vol] 69 mg/dL Low 70-99 [facility] Comment on above: Performed By: #### P TT #### [facility] [address] [place] [address] Program Planner: Hadley Smith MD Potassium [Moles/Vol] 3.8 mmol/L Normal 3.7-5.3 [facility] Comment on above: Performed By: #### P TT #### [facility] [place] [address] Program Planner: Hadley Smith MD Sodium [Moles/Vol] 140 mmol/L Normal 135-144 [facility] Comment on above: Performed By: #### P TT #### [facility] [address] [place] [address] Program Planner: Hadley Smith MD Urea nitrogen [Mass/Vol] 11 mg/dL Normal 8-23 [facility] Comment on above: Performed By: #### P TT #### [facility] [address] [place] [address] Program Planner: Hadley Smith MD CBC with Diffon 05-03-2023 Abs. Basophil 0.03 k/uL Normal 0.00-0.20 [facility] Comment on above: Performed By: #### P TT #### [facility] [address] [place] [address] Program Planner: Hadley Smith MD Abs.Imm.Granulocyte 0.01 k/uL Normal 0.00-0.30 [facility] Comment on above: Performed By: #### P TT #### [facility] [address] [place] [address] Program Planner: Hadley Smith MD Abs.Neutrophil (Seg) 2.94 k/uL Normal 1.50-8.10 [facility] Comment on above: Performed By: #### P TT #### [facility] [address] [place] [address] Program Planner: Hadley Smith MD Basophils/100 WBC (Bld) 1 % Normal 0-2 [facility] Comment on above: Performed By: #### P TT #### [facility] [address] [place] [address] Program Planner: Hadley Smith MD Eosinophils (Bld) [#/Vol] 0.17 10*3/uL Normal 0.00-0.44 [facility] Comment on above: Performed By: #### P TT #### [facility] [address] [place] [address] Program Planner: Hadley Smith MD Eosinophils/100 WBC (Bld) 4 % Normal 1-4 [facility] Comment on above: Performed By: #### P TT #### [facility] [address] [place] [address] Program Planner: Hadley Smith MD Erythrocyte distribution width (RBC) [Ratio] 12.5 % Normal 11.8-14.4 [facility] Comment on above: Performed By: #### P TT #### [facility] [address] [place] [address] Program Planner: Hadley Smith MD Hematocrit (Bld) [Volume fraction] 25.3 % Low 40.7-50.3 [facility] Comment on above: Performed By: #### P TT #### [facility] [address] [place] [address] Program Planner: Hadley Smith MD Hemoglobin (Bld) [Mass/Vol] 8.1 g/dL Low 13.0-17.0 [facility] Comment on above: Performed By: #### P TT #### [facility] [place] [address] Program Planner: Hadley Smith MD Immature granulocytes/100 WBC (Bld) 0 % Normal 0 [facility] Comment on above: Performed By: #### P TT #### [facility] [place] [address] Program Planner: Hadley Smith MD Lymphocytes (Bld) [#/Vol] 1.29 10*3/uL Normal 1.10-3.70 [facility] Comment on above: Performed By: #### P TT #### [facility] [address] [place] [address] Program Planner: Hadley Smith MD Lymphocytes/100 WBC (Bld) 27 % Normal 24-43 [facility] Comment on above: Performed By: #### P TT #### [facility] [address] [place] [address] Program Planner: Hadley Smith MD MCH (RBC) [Entitic mass] 33.2 pg Normal 25.2-33.5 [facility] Comment on above: Performed By: #### P TT #### [facility] [address] [place] [address] Program Planner: Hadley Smith MD MCHC (RBC) [Mass/Vol] 32.0 g/dL Normal 28.4-34.8 [facility] Comment on above: Performed By: #### P TT #### [facility] [address] [place] [address] Program Planner: Hadley Smith MD MCV (RBC) [Entitic vol] 103.7 fL High 82.6-102.9 [facility] Comment on above: Performed By: #### P TT #### [facility] [address] [place] [address] Program Planner: Hadley Smith MD Monocytes (Bld) [#/Vol] 0.35 10*3/uL Normal 0.10-1.20 [facility] Comment on above: Performed By: #### P TT #### [facility] [address] [facility] [place] [address] Program Planner: Hadley Smith MD Monocytes/100 WBC (Bld) 7 % Normal 3-12 [facility] Comment on above: Performed By: #### P TT #### [facility] [place] [address] Program Planner: Hadley Smith MD Neutrophil (Seg) 61 % Normal 36-65 [facility] Comment on above: Performed By: #### P TT #### [facility] [place] [address] Program Planner: Hadley Smith MD NRBC Automated 0.0 per 100 WBC Normal 0.0 [facility] Comment on above: Performed By: #### P TT #### [facility] [address] [place] [address] Program Planner: Hadley Smith MD Platelet mean volume (Bld) [Entitic vol] 9.5 fL Normal 8.1-13.5 [facility] Comment on above: Performed By: #### P TT #### [facility] [place] [address] Program Planner: Hadley Smith MD Platelets (Bld) [#/Vol] 110 10*3/uL Low 138-453 [facility] Comment on above: Performed By: #### P TT #### [facility] [facility] [place] [address] Program Planner: Hadley Smith MD RBC (Bld) [#/Vol] 2.44 10*6/uL Low 4.21-5.77 [facility] Comment on above: Performed By: #### P TT #### [facility] [address] [place] [address] Program Planner: Hadley Smith MD RBC morphology finding Nom (Bld) MACROCYTOSIS PRESENT Normal [facility] Comment on above: Performed By: #### P TT #### [facility] [place] [address] Program Planner: Hadley Smith MD WBC (Bld) [#/Vol] 4.8 10*3/uL Normal 3.5-11.3 [facility] Comment on above: Performed By: #### P TT #### [facility] [address] [place], [place] [address] [address] Program Planner: Hadley Smith MD Hgb/Hcton 05-03-2023 Hematocrit (Bld) [Volume fraction] 26.0 % Low 40.7-50.3 [facility] Comment on above: Performed By: #### P TT #### [facility] [address] [place] [address]. [place] [address] Program Planner: Hadley Smith MD Hemoglobin (Bld) [Mass/Vol] 8.2 g/dL Low 13.0-17.0 [facility] Comment on above: Performed By: #### P TT #### [facility] [address] [place], [place] [address] [address] Program Planner: Hadley Smith MD Lab Reportson 05-03-2023 Lab Reports [id number] Normal [facility] XR ABDOMEN (KUB) (SINGLE AP VIEW)on 05-03-2023 XR ABDOMEN (KUB) (SINGLE AP VIEW) EXAMINATION: ONE SUPINE XRAY VIEW(S) OF THE ABDOMEN 05/03/2023 8:59 am COMPARISON: Abdominal radiographs performed 05/02/2023. HISTORY: ORDERING SYSTEM PROVIDED HISTORY: SBO TECHNOLOGIST PROVIDED HISTORY: SBO Reason for Exam: SBO, pt has NG tube FINDINGS: There is a nonspecific bowel gas pattern without evidence for obstruction. There is no free air. There are no suspicious calcifications. There is a gastric tube with the tip in the gastric fundus. There is no acute osseous abnormality. The surrounding soft tissues are unremarkable. IMPRESSION: Nonspecific bowel gas pattern without evidence for obstruction. Gastric tube with the tip in the gastric fundus. Interpreted by: Toby Lofton MD Signed by: Toby Lofton MD 05/03/23 Final result Normal [facility] Basic Metab w/rfx MGon 05-02 Anion gap [Moles/Vol] 4 mmol/L Low 9-17 [facility] Comment on above: Performed By: #### B MPX, CDP #### [facility] [address] [place] [address] Program Planner: Hadley Smith MD BUN/CRE Ratio 24 High 9-20 [facility] Comment on above: Performed By: #### B MPX, CDP #### [facility] [address] [facility] [place] [address] Program Planner: Hadley Smith MD Calcium [Mass/Vol] 7.9 mg/dL Low 8.6-10.4 [facility] Comment on above: Performed By: #### B MPX, CDP #### [facility] [address] [facility] [place] [address] Program Planner: Hadley Smith MD Chloride [Moles/Vol] 117 mmol/L High 98-107 [facility] Comment on above: Performed By: #### B MPX, CDP #### [facility] [address] [facility] [place] [address] Program Planner: Hadley Smith MD CO2 [Moles/Vol] 22 mmol/L Normal 20-31 [facility] Comment on above: Performed By: #### B MPX, CDP #### [facility] [address] [place] [address] Program Planner: Hadley Smith MD Creatinine [Mass/Vol] 0.8 mg/dL Normal 0.7-1.2 [facility] Comment on above: Performed By: #### B MPX, CDP #### [facility] [address] [facility] [place] [address] Program Planner: Hadley Smith MD GFR/1.73 sq M.predicted among non-blacks MDRD (S/P/Bld) [Vol rate/Area] mL/min/{1.73_m2} Normal >60 [facility] Comment on above: Result Comment: These [...] tubular secretion. Performed By: #### B MPX, CDP #### [facility] [address] [facility] [place] [address] Program Planner: Hadley Smith MD Glucose [Mass/Vol] 87 mg/dL Normal 70-99 [facility] Comment on above: Performed By: #### B MPX, CDP #### [facility] [address] [facility] [place] [address] Program Planner: Hadley Smith MD Potassium [Moles/Vol] 3.7 mmol/L Normal 3.7-5.3 [facility] Comment on above: Performed By: #### B MPX, CDP #### [facility] [address] [facility] [place] [address] Program Planner: Hadley Smith MD Sodium [Moles/Vol] 143 mmol/L Normal 135-144 [facility] Comment on above: Performed By: #### B MPX, CDP #### [facility] [address] [place] [address] Program Planner: Hadley Smith MD Urea nitrogen [Mass/Vol] 19 mg/dL Normal 8-23 [facility] Comment on above: Performed By: #### B MPX, CDP #### [facility] [address] [place] [address] Program Planner: Hadley Smith MD CBC with Diffon 05-02-2023 Abs. Basophil 0.03 k/uL Normal 0.00-0.20 [facility] Comment on above: Performed By: #### B MPX, CDP #### [facility] [address] [place] [address] Program Planner: Hadley Smith MD Abs.Imm.Granulocyte 0.01 k/uL Normal 0.00-0.30 [facility] Comment on above: Performed By: #### B MPX, CDP #### [facility] [address] [place] [address] Program Planner: Hadley Smith MD Abs.Neutrophil (Seg) 2.85 k/uL Normal 1.50-8.10 [facility] Comment on above: Performed By: #### B MPX, CDP #### [facility] [address] [place] [address] Program Planner: Hadley Smith MD Basophils/100 WBC (Bld) 1 % Normal 0-2 [facility] Comment on above: Performed By: #### B MPX, CDP #### [facility] [address] [place] [address] Program Planner: Hadley Smith MD Eosinophils (Bld) [#/Vol] 0.26 10*3/uL Normal 0.00-0.44 [facility] Comment on above: Performed By: #### B MPX, CDP #### [facility] [address] [place] [address] Program Planner: Hadley Smith MD Eosinophils/100 WBC (Bld) 5 % High 1-4 [facility] Comment on above: Performed By: #### B MPX, CDP #### [facility] [address] [place] [address] Program Planner: Hadley Smith MD Erythrocyte distribution width (RBC) [Ratio] 12.8 % Normal 11.8-14.4 [facility] Comment on above: Performed By: #### B MPX, CDP #### [facility] [address] [place] [address] Program Planner: Hadley Smith MD Hematocrit (Bld) [Volume fraction] 26.2 % Low 40.7-50.3 [facility] Comment on above: Performed By: #### B MPX, CDP #### [facility] [address] [place] [address] Program Planner: Hadley Smith MD Hemoglobin (Bld) [Mass/Vol] 8.1 g/dL Low 13.0-17.0 [facility] Comment on above: Performed By: #### B MPX, CDP #### [facility] [address] [place] [address] Program Planner: Hadley Smith MD Immature granulocytes/100 WBC (Bld) 0 % Normal 0 [facility] Comment on above: Performed By: #### B MPX, CDP #### [facility] [address] [facility] [place] [address] Program Planner: Hadley Smith MD Lymphocytes (Bld) [#/Vol] 1.49 10*3/uL Normal 1.10-3.70 [facility] Comment on above: Performed By: #### B MPX, CDP #### [facility] [address] [place] [address]. [place] [address] Program Planner: Hadley Smith MD Lymphocytes/100 WBC (Bld) 30 % Normal 24-43 [facility] Comment on above: Performed By: #### B MPX, CDP #### [facility] [address] [place] [address] Program Planner: Hadley Smith MD MCH (RBC) [Entitic mass] 32.8 pg Normal 25.2-33.5 [facility] Comment on above: Performed By: #### B MPX, CDP #### [facility] [address] [place] [address]. [place] [address] Program Planner: Hadley Smith MD MCHC (RBC) [Mass/Vol] 30.9 g/dL Normal 28.4-34.8 [facility] Comment on above: Performed By: #### B MPX, CDP #### [facility] [address] [place] [address]. [place] [address] Program Planner: Hadley Smith MD MCV (RBC) [Entitic vol] 106.1 fL High 82.6-102.9 [facility] Comment on above: Performed By: #### B MPX, CDP #### [facility] [address] [place] [address] Program Planner: Hadley Smith MD Monocytes (Bld) [#/Vol] 0.37 10*3/uL Normal 0.10-1.20 [facility] Comment on above: Performed By: #### B MPX, CDP #### [facility] [address] [place] [address] Program Planner: Hadley Smith MD Monocytes/100 WBC (Bld) 7 % Normal 3-12 [facility] Comment on above: Performed By: #### B MPX, CDP #### [facility] [place] [address] Program Planner: Hadley Smith MD Neutrophil (Seg) 57 % Normal 36-65 [facility] Comment on above: Performed By: #### B MPX, CDP #### [facility] [address] [place] [address]. [place] [address] Program Planner: Hadley Smith MD NRBC Automated 0.0 per 100 WBC Normal 0.0 [facility] Comment on above: Performed By: #### B MPX, CDP #### [facility] [place] [address] Program Planner: Hadley Smith MD Platelet mean volume (Bld) [Entitic vol] 9.2 fL Normal 8.1-13.5 [facility] Comment on above: Performed By: #### B MPX, CDP #### [facility] [place] [address] Program Planner: Hadley Smith MD Platelets (Bld) [#/Vol] 134 10*3/uL Low 138-453 [facility] Comment on above: Performed By: #### B MPX, CDP #### [facility] [place] [address] Program Planner: Hadley Smith MD RBC (Bld) [#/Vol] 2.47 10*6/uL Low 4.21-5.77 [facility] Comment on above: Performed By: #### B MPX, CDP #### [facility] [address] [place] [address] Program Planner: Hadley Smith MD RBC morphology finding Nom (Bld) MACROCYTOSIS PRESENT Normal [facility] Comment on above: Performed By: #### B MPX, CDP #### [facility] [address] [facility] [place] [address] Program Planner: Hadley Smith MD WBC (Bld) [#/Vol] 5.0 10*3/uL Normal 3.5-11.3 [facility] Comment on above: Performed By: #### B MPX, CDP #### [facility] [address] [place] [address]. [place] [address] Program Planner: Hadley Smith MD Hgb/Hcton 05-02-2023 Hematocrit (Bld) [Volume fraction] 26.5 % Low 40.7-50.3 [facility] Comment on above: Performed By: #### C DP BMPX #### [facility] [address] [place] [address]. [place] [address] Program Planner: Hadley Smith MD Hemoglobin (Bld) [Mass/Vol] 8.2 g/dL Low 13.0-17.0 [facility] Comment on above: Performed By: #### C DP, BMPX #### [facility] [place] [address] Program Planner: Hadley Smith MD K (Potassium)on 05-02-2023 Potassium [Moles/Vol] 3.7 mmol/L Normal 3.7-5.3 [facility] Comment on above: Performed By: #### C DP, BMPX #### [facility] [place], [place] [id number] Program Planner: Hadley Smith MD Magnesiumon 05-02-2023 Magnesium [Mass/Vol] 1.5 mg/dL Low 1.6-2.6 [facility] Comment on above: Performed By: #### C DP, BMPX #### [facility] [address] [place], [place] [address] Program Planner: Hadley Smith MD Troponinon 05-02-2023 Troponin, High Sens 12 ng/L Normal 0-22 [facility] Comment on above: Result Comment: High Sensitivity Troponin values cannot be compared with other Troponin methodologies. Performed By: #### C DP, BMPX #### [facility] [address] [place], [place] [address] Program Planner: Hadley Smith MD XR ABDOMEN (KUB) (SINGLE AP VIEW)on 05-02-2023 XR ABDOMEN (KUB) (SINGLE AP VIEW) EXAMINATION: ONE SUPINE XRAY VIEW(S) OF THE ABDOMEN 05/02/2023 8:04 am COMPARISON: 05/01/2023 HISTORY: ORDERING SYSTEM PROVIDED HISTORY: SBO TECHNOLOGIST PROVIDED HISTORY: SBO Reason for Exam: SBO FINDINGS: Gas seen in mildly dilated colon. Minimal small bowel gas. NG tube tip and side-port in the stomach. Moderate stool burden in the colon. IMPRESSION: No evidence for bowel obstruction Interpreted by: Irwin Spencer MD Signed by: Irwin Spencer MD 05/02/23 Final result Normal [facility] APTTon 05-01-2023 aPTT Coag (Bld) [Time] 27.3 s Normal 23.9-33.8 [facility] Comment on above: Result Comment: IV Heparin Therapy Range: 62.0-94.0 Performed By: #### P TT #### [facility] [address] [place], [place] [address] Program Planner: Hadley Smith MD Basic Metab w/rfx MGon 02-27 -2024 Anion gap [Moles/Vol] 7 mmol/L Low 9-17 [facility] Comment on above: Performed By: #### P TT #### [facility] [address] [address] Program Planner: Hadley Smith MD BUN/CRE Ratio 21 High 9-20 [facility] Comment on above: Performed By: #### P TT #### [facility] [address] [address] Program Planner: Hadley Smith MD Calcium [Mass/Vol] 8.3 mg/dL Low 8.6-10.4 [facility] Comment on above: Performed By: #### P TT #### [facility] [address] [facility] [place] [address] Program Planner: Hadley Smith MD Chloride [Moles/Vol] 112 mmol/L High 98-107 [facility] Comment on above: Performed By: #### P TT #### [facility] [address] [facility] [place] [address] Program Planner: Hadley Smith MD CO2 [Moles/Vol] 24 mmol/L Normal 20-31 [facility] Comment on above: Performed By: #### P TT #### [facility] [address] [facility] [place] [address] Program Planner: Hadley Smith MD Creatinine [Mass/Vol] 1.2 mg/dL Normal 0.7-1.2 [facility] Comment on above: Performed By: #### P TT #### [facility] [address] [facility] [place] [address] Program Planner: Hadley Smith MD GFR/1.73 sq M.predicted among non-blacks MDRD (S/P/Bld) [Vol rate/Area] mL/min/{1.73_m2} Normal >60 [facility] Comment on above: Result Comment: These [...] renal tubular secretion. Performed By: #### P TT #### [facility] [address] [place] [address] Program Planner: Hadley Smith MD Glucose [Mass/Vol] 102 mg/dL High 70-99 [facility] Comment on above: Performed By: #### P TT #### [facility] [place] [address] Program Planner: Hadley Smith MD Potassium [Moles/Vol] 4.0 mmol/L Normal 3.7-5.3 [facility] Comment on above: Performed By: #### P TT #### [facility] [place] [address] Program Planner: Hadley Smith MD Sodium [Moles/Vol] 143 mmol/L Normal 135-144 [facility] Comment on above: Performed By: #### P TT #### [facility] [place] [address] Program Planner: Hadley Smith MD Urea nitrogen [Mass/Vol] 25 mg/dL High 8-23 [facility] Comment on above: Performed By: #### P TT #### [facility] [place] [address] Program Planner: Hadley Smith MD CBC with Diffon 05-01-2023 Abs. Basophil 0.03 k/uL Normal 0.00-0.20 [facility] Comment on above: Performed By: #### P TT #### [facility] [place] [address] Program Planner: Hadley Smith MD Abs.Imm.Granulocyte 0.02 k/uL Normal 0.00-0.30 [facility] Comment on above: Performed By: #### P TT #### [facility] [address] [place] [address] Program Planner: Hadley Smith MD Abs.Neutrophil (Seg) 6.54 k/uL Normal 1.50-8.10 [facility] Comment on above: Performed By: #### P TT #### [facility] [address] [place] [address] Program Planner: Hadley Smith MD Basophils/100 WBC (Bld) 0 % Normal 0-2 [facility] Comment on above: Performed By: #### P TT #### [facility] [address] [place] [address] Program Planner: Hadley Smith MD Eosinophils (Bld) [#/Vol] 0.36 10*3/uL Normal 0.00-0.44 [facility] Comment on above: Performed By: #### P TT #### [facility] [address] [place] [address] Program Planner: Hadley Smith MD Eosinophils/100 WBC (Bld) 4 % Normal 1-4 [facility] Comment on above: Performed By: #### P TT #### [facility] [address] [place] [address] Program Planner: Hadley Smith MD Erythrocyte distribution width (RBC) [Ratio] 13.2 % Normal 11.8-14.4 [facility] Comment on above: Performed By: #### P TT #### [facility] [address] [place] [address] Program Planner: Hadley Smith MD Hematocrit (Bld) [Volume fraction] 32.9 % Low 40.7-50.3 [facility] Comment on above: Performed By: #### P TT #### [facility] [address] [place] [address] Program Planner: Hadley Smith MD Hemoglobin (Bld) [Mass/Vol] 10.3 g/dL Low 13.0-17.0 [facility] Comment on above: Performed By: #### P TT #### [facility] [address] [place] [address] Program Planner: Hadley Smith MD Immature granulocytes/100 WBC (Bld) 0 % Normal 0 [facility] Comment on above: Performed By: #### P TT #### [facility] [address] [place] [address] Program Planner: Hadley Smith MD Lymphocytes (Bld) [#/Vol] 1.73 10*3/uL Normal 1.10-3.70 [facility] Comment on above: Performed By: #### P TT #### [facility] [place] [address] Program Planner: Hadley Smith MD Lymphocytes/100 WBC (Bld) 19 % Low 24-43 [facility] Comment on above: Performed By: #### P TT #### [facility] [place] [address] Program Planner: Hadley Smith MD MCH (RBC) [Entitic mass] 33.1 pg Normal 25.2-33.5 [facility] Comment on above: Performed By: #### P TT #### [facility] [place] [address] Program Planner: Hadley Smith MD MCHC (RBC) [Mass/Vol] 31.3 g/dL Normal 28.4-34.8 [facility] Comment on above: Performed By: #### P TT #### [facility] [address] [place] [address] Program Planner: Hadley Smith MD MCV (RBC) [Entitic vol] 105.8 fL High 82.6-102.9 [facility] Comment on above: Performed By: #### P TT #### [facility] [address] [place] [address] Program Planner: Hadley Smith MD Monocytes (Bld) [#/Vol] 0.57 10*3/uL Normal 0.10-1.20 [facility] Comment on above: Performed By: #### P TT #### [facility] [address] [place] [address] Program Planner: Hadley Smith MD Monocytes/100 WBC (Bld) 6 % Normal 3-12 [facility] Comment on above: Performed By: #### P TT #### [facility] [address] [place] [address] Program Planner: Hadley Smith MD Neutrophil (Seg) 71 % High 36-65 [facility] Comment on above: Performed By: #### P TT #### [facility] [address] [place] [address] Program Planner: Hadley Smith MD NRBC Automated 0.0 per 100 WBC Normal 0.0 [facility] Comment on above: Performed By: #### P TT #### [facility] [address] [place] [address] Program Planner: Hadley Smith MD Platelet mean volume (Bld) [Entitic vol] 9.5 fL Normal 8.1-13.5 [facility] Comment on above: Performed By: #### P TT #### [facility] [address] [place] [address] Program Planner: Hadley Smith MD Platelets (Bld) [#/Vol] 209 10*3/uL Normal 138-453 [facility] Comment on above: Performed By: #### P TT #### [facility] [place] [address] Program Planner: Hadley Smith MD RBC (Bld) [#/Vol] 3.11 10*6/uL Low 4.21-5.77 [facility] Comment on above: Performed By: #### P TT #### [facility] [place] [address] Program Planner: Hadley Smith MD RBC morphology finding Nom (Bld) MACROCYTOSIS PRESENT Normal [facility] Comment on above: Performed By: #### P TT #### [facility] [place] [address] Program Planner: Hadley Smith MD WBC (Bld) [#/Vol] 9.3 10*3/uL Normal 3.5-11.3 [facility] Comment on above: Performed By: #### P TT #### [facility] [place] [address] Program Planner: Hadley Smith MD Comp Metabolic Pr/rfx MGon 0 - Albumin [Mass/Vol] 3.5 g/dL Normal 3.5-5.2 [facility] Comment on above: Performed By: #### P TT #### [facility] [address] [facility] [place] [address] Program Planner: Hadley Smith MD Alkaline Phos 119 U/L Normal 40-129 [facility] Comment on above: Performed By: #### P TT #### [facility] [address] [facility] [place] [address] Program Planner: Hadley Smith MD ALT [Catalytic activity/Vol] 22 U/L Normal 5-41 [facility] Comment on above: Performed By: #### P TT #### [facility] [place] [address] Program Planner: Hadley Smith MD Anion gap [Moles/Vol] 13 mmol/L Normal 9-17 [facility] Comment on above: Performed By: #### P TT #### [facility] [address] [facility] [place] [address] Program Planner: Hadley Smith MD AST [Catalytic activity/Vol] 14 U/L Normal <40 [facility] Comment on above: Performed By: #### P TT #### [facility] [place] [address] Program Planner: Hadley Smith MD Bilirubin [Mass/Vol] 0.3 mg/dL Normal 0.3-1.2 [facility] Comment on above: Performed By: #### P TT #### [facility] [place] [address] Program Planner: Hadley Smith MD BUN/CRE Ratio 20 Normal 9-20 [facility] Comment on above: Performed By: #### P TT #### [facility] [address] [place] [id number] Program Planner: Hadley Smith MD Calcium [Mass/Vol] 8.6 mg/dL Normal 8.6-10.4 [facility] Comment on above: Performed By: #### P TT #### [facility] [address] [facility] [address] Program Planner: Hadley Smith MD Chloride [Moles/Vol] 107 mmol/L Normal 98-107 [facility] Comment on above: Performed By: #### P TT #### [facility] [address] [facility] [place] [address] Program Planner: Hadley Smith MD CO2 [Moles/Vol] 24 mmol/L Normal 20-31 [facility] Comment on above: Performed By: #### P TT #### [facility] [address] [facility] [place] [address] Program Planner: Hadley Smith MD Creatinine [Mass/Vol] 1.3 mg/dL High 0.7-1.2 [facility] Comment on above: Performed By: #### P TT #### [facility] [place] [address] Program Planner: Hadley Smith MD GFR/1.73 sq M.predicted among non-blacks MDRD (S/P/Bld) [Vol rate/Area] mL/min/{1.73_m2} Normal >60 [facility] Comment on above: Result Comment: These [...] renal tubular secretion. Performed By: #### P TT #### [facility] [address] [place] [address] Program Planner: Hadley Smith MD Glucose [Mass/Vol] 108 mg/dL High 70-99 [facility] Comment on above: Performed By: #### P TT #### [facility] [address] [place] [address] Program Planner: Hadley Smith MD Potassium [Moles/Vol] 3.6 mmol/L Low 3.7-5.3 [facility] Comment on above: Performed By: #### P TT #### [facility] [place] [address] Program Planner: Hadley Smith MD Protein [Mass/Vol] 6.4 g/dL Normal 6.4-8.3 [facility] Comment on above: Performed By: #### P TT #### [facility] [address] [facility] [place] [address] Program Planner: Hadley Smith MD Sodium [Moles/Vol] 144 mmol/L Normal 135-144 [facility] Comment on above: Performed By: #### P TT #### [facility] [place] [address] Program Planner: Hadley Smith MD Urea nitrogen [Mass/Vol] 26 mg/dL High 8-23 [facility] Comment on above: Performed By: #### P TT #### [facility] [place] [address] Program Planner: Hadley Smith MD Hgb/Hcton 05-01-2023 Hematocrit (Bld) [Volume fraction] 28.0 % Low 40.7-50.3 [facility] Comment on above: Performed By: #### H H #### [facility] [address] [place] [address] Program Planner: Hadley Smith MD Hemoglobin (Bld) [Mass/Vol] 8.8 g/dL Low 13.0-17.0 [facility] Comment on above: Performed By: #### H H #### [facility] [address] [place] [address] Program Planner: Hadley Smith MD Hematocrit (Bld) [Volume fraction] 29.9 % Low 40.7-50.3 [facility] Comment on above: Performed By: #### H H #### [facility] [place] [address] Program Planner: Hadley Smith MD Hemoglobin (Bld) [Mass/Vol] 9.3 g/dL Low 13.0-17.0 [facility] Comment on above: Performed By: #### H H #### [facility] [place] [address] Program Planner: Hadley Smith MD Hematocrit (Bld) [Volume fraction] 33.2 % Low 40.7-50.3 [facility] Comment on above: Performed By: #### B MPX, CDP #### [facility] [place] [address] Program Planner: Hadley Smith MD Hemoglobin (Bld) [Mass/Vol] 10.3 g/dL Low 13.0-17.0 [facility] Comment on above: Performed By: #### B MPX, CDP #### [facility] [place] [address] Program Planner: Hadley Smith MD Iron Binding Cap.on 05-01-19 24 % Fe Saturation 32 % Normal 20-55 [facility] Comment on above: Performed By: #### P TT #### [facility] [address] [place] [address] Program Planner: Hadley Smith MD Iron [Mass/Vol] 43 ug/dL Low 59-158 [facility] Comment on above: Performed By: #### P TT #### [facility] [address] [place] [address] Program Planner: Hadley Smith MD Total Fe Binding Cap 133 ug/dL Low 250-450 [facility] Comment on above: Performed By: #### P TT #### [facility] [address] [place] [address] Program Planner: Hadley Smith MD Unbound Fe Bind Cap 90 ug/dL Low 112-347 [facility] Comment on above: Performed By: #### P TT #### [facility] [address] [place] [address] Program Planner: Hadley Smith MD Lactate, Sepsison 05-01-2023 Lactic Acid, Sepsis 0.7 mmol/L Normal 0.5-1.9 [facility] Comment on above: Performed By: #### L ACDS #### [facility] [address] [place] [address] Program Planner: Hadley Smith MD Lactic Acid, Sepsis 1.2 mmol/L Normal 0.5-1.9 [facility] Comment on above: Performed By: #### P TT #### [facility] [address] [place] [address] Program Planner: Hadley Smith MD Magnesiumon 05-01-2023 Magnesium [Mass/Vol] 2.2 mg/dL Normal 1.6-2.6 [facility] Comment on above: Performed By: #### P TT #### [facility] [address] [place] [address] Program Planner: Hadley Smith MD Specimen Rejectionon 024 Reason for rejection Unable to perform testing: Specimen quantity not sufficient. Normal [facility] Comment on above: Performed By: #### P TT #### [facility] [address] [place] [address] Program Planner: Hadley Smith MD Source of sample .BLOOD Normal [facility] Comment on above: Performed By: #### P TT #### [facility] [address] [place] [address] Program Planner: Hadley Smith MD Test ordered PTT Normal [facility] Comment on above: Performed By: #### P TT #### [facility] [address] [place] [address] Program Planner: Hadley Smith MD XR ABDOMEN (2 VIEWS)on 05-01 XR ABDOMEN (2 VIEWS) EXAMINATION: TWO XRAY VIEWS OF THE ABDOMEN 05/01/2023 6:11 am COMPARISON: 04/26/2023, 902 hours HISTORY: ORDERING SYSTEM PROVIDED HISTORY: SBO TECHNOLOGIST PROVIDED HISTORY: SBO Reason for Exam: SBO 68-year-old male with history of small-bowel obstruction FINDINGS: NG tube traverses the GE junction with distal tip overlying the left upper quadrant likely in the body of the stomach. Multiple dilated small bowel loops are seen throughout the abdomen with slight interval increase in dilation of small bowel loops measuring up to 6.3 cm compared with the prior exam of 04/26/2023. Mild elevation of the left hemidiaphragm. Mild left basilar atelectasis. Moderate degenerative changes throughout the spine. IMPRESSION: 1. Multiple dilated small bowel loops measuring up to 6.3 cm demonstrating interval increase in distension compared with the prior study consistent with small-bowel obstruction. 2. Mild left basilar atelectasis and mild elevation of the left hemidiaphragm. 3. NG tube distal tip likely in the body of the stomach. The findings were sent to the Radiology Results Communication [facility] at 7:03 am on 05/01/2023 to be communicated to a licensed caregiver. Interpreted by: Devaughn Merino MD Signed by: Devaughn Merino MD 05/01/23 Final result Normal [facility] XR ABDOMEN FOR NG/OG/NE TUBE PLACEMENTon 05-01-2023 XR ABDOMEN FOR NG/OG/NE TUBE PLACEMENT EXAMINATION: ONE SUPINE XRAY VIEW(S) OF THE ABDOMEN 05/01/2023 5:58 pm COMPARISON: Radiographs obtained earlier the same day HISTORY: ORDERING SYSTEM PROVIDED HISTORY: Confirmation of course of NG/OG/NE tube and location of tip of tube TECHNOLOGIST PROVIDED HISTORY: Confirmation of course of NG/OG/NE tube and location of tip of tube Portable?->Yes Reason for Exam: NG tube placement FINDINGS: There is been interval enteric tube advancement, with its tip in side hole now overlying the stomach. The visualized portions of the lungs are clear. IMPRESSION: Enteric tube extends into the stomach, in satisfactory position. Interpreted by: Miles Barnett MD Signed by: Miles Barnett MD 05/01/23 Final result Normal [facility] XR ABDOMEN FOR NG/OG/NE TUBE PLACEMENT EXAMINATION: ONE SUPINE XRAY VIEW(S) OF THE ABDOMEN 05/01/2023 9:53 am COMPARISON: Earlier exam of same date HISTORY: ORDERING SYSTEM PROVIDED HISTORY: NG placement TECHNOLOGIST PROVIDED HISTORY: NG placement Portable?->Yes Reason for Exam: NG tube placement FINDINGS: There is an enteric tube with its tip projecting over the midportion of the stomach. Proximal port is at the GE junction. IMPRESSION: Enteric tube in the stomach as above. RECOMMENDATIONS: Recommend advancing tube 5 cm Interpreted by: Melchor Mota MD Signed by: Melchor Mota MD 05/01/23 Final result Normal [facility] Basic Metab w/rfx MGon 04-28 Anion gap [Moles/Vol] 10 mmol/L Normal 9-17 [facility] Comment on above: Performed By: #### C DP, BMPX #### [facility] [address] [place] [address] Program Planner: Hadley Smith MD BUN/CRE Ratio 31 High 9-20 [facility] Comment on above: Performed By: #### C DP, BMPX #### [facility] [address] [facility] [place] [address] Program Planner: Hadley Smith MD Calcium [Mass/Vol] 9.2 mg/dL Normal 8.6-10.4 [facility] Comment on above: Performed By: #### C DP, BMPX #### [facility] [address] [place] [address] Program Planner: Hadley Smith MD Chloride [Moles/Vol] 110 mmol/L High 98-107 [facility] Comment on above: Performed By: #### C DP, BMPX #### [facility] [place] [address] Program Planner: Hadley Smith MD CO2 [Moles/Vol] 27 mmol/L Normal 20-31 [facility] Comment on above: Performed By: #### C DP, BMPX #### [facility] [place] [address] Program Planner: Hadley Smith MD Creatinine [Mass/Vol] 0.7 mg/dL Normal 0.7-1.2 [facility] Comment on above: Performed By: #### C DP, BMPX #### [facility] [place] [address] Program Planner: Hadley Smith MD GFR/1.73 sq M.predicted among non-blacks MDRD (S/P/Bld) [Vol rate/Area] mL/min/{1.73_m2} Normal >60 [facility] Comment on above: Result Comment: These [...] Performed By: #### C DP, BMPX #### [facility] [address] [facility] [place] [address] Program Planner: Hadley Smith MD Glucose [Mass/Vol] 95 mg/dL Normal 70-99 [facility] Comment on above: Performed By: #### C DP, BMPX #### [facility] [address] [place] [address] Program Planner: Hadley Smith MD Potassium [Moles/Vol] 3.9 mmol/L Normal 3.7-5.3 [facility] Comment on above: Performed By: #### C DP, BMPX #### [facility] [address] [place] [address] Program Planner: Hadley Smith MD Sodium [Moles/Vol] 147 mmol/L High 135-144 [facility] Comment on above: Performed By: #### C DP, BMPX #### [facility] [address] [place] [address] Program Planner: Hadley Smith MD Urea nitrogen [Mass/Vol] 22 mg/dL Normal 8-23 [facility] Comment on above: Performed By: #### C DP, BMPX #### [facility] [address] [place] [address] Program Planner: Hadley Smith MD Basic Metabolic Panel w/ Ref claudia to MGon 04-28-2023 Anion gap [Moles/Vol] 10 mmol/L 9 - 17 mmol/L [facility] Calcium [Mass/Vol] 9.2 mg/dL 8.6 - 10. 4 mg/dL [facility] Chloride [Moles/Vol] 110 mmol/L High 98 - 10 7 mmol/L [facility] CO2 [Moles/Vol] 27 mmol/L 20 - 31 mmol/L [facility] Creatinine [Mass/Vol] 0.7 mg/dL 0.7 - 1.2 mg/dL [facility] GFR/1.73 sq M.predicted MDRD (S/P/Bld) [Vol rate/Area] - PINF [facility] Comment on above: These results are not [...] that affects renal tubular secretion. Glucose [Mass/Vol] 95 mg/dL 70 - 99 mg/dL [facility] Interpretation and review of laboratory results Abnormal [facility] Potassium [Moles/Vol] 3.9 mmol/L 3.7 - 5.3 mmol/L [facility] Sodium [Moles/Vol] 147 mmol/L High 135 - 144 mmol/L [facility] Urea nitrogen [Mass/Vol] 22 mg/dL 8 - 23 mg/dL [facility] Urea nitrogen/Creatinine [Mass ratio] 31 mg/mg High 9 - 20 [facility] CBC with Auto Differentialon 04-28-2023 Basophils (Bld) [#/Vol] 0.04 10*3/uL [facility] Basophils/100 WBC (Bld) 1 % 0 - 2 % [facility] Eosinophils (Bld) [#/Vol] 0.25 10*3/uL [facility] Eosinophils/100 WBC (Bld) 4 % 1 - 4 % [facility] Erythrocyte distribution width (RBC) [Ratio] 12.9 % 11.8 - 14.4 % [facility] Hematocrit (Bld) [Volume fraction] 32.2 % Low 40.7 - 50.3 % [facility] Hemoglobin (Bld) [Mass/Vol] 10.7 g/dL Low 13.0 - 17.0 g/dL [facility] Immature granulocytes (Bld) [#/Vol] 0.01 10*3/uL [facility] Immature granulocytes/100 WBC (Bld) 0 % 0 [facility] Interpretation and review of laboratory results Abnormal [facility] Lymphocytes/100 WBC (Bld) 26 % 24 - 43 % [facility] Lymphocytes/100 WBC (Bld) 1.60 % [facility] MCH (RBC) [Entitic mass] 33.0 pg 25.2 - 33.5 pg [facility] MCHC (RBC) [Mass/Vol] 33.2 g/dL 28.4 - 34.8 g/dL [facility] MCV (RBC) [Entitic vol] 99.4 fL 82.6 - 102.9 fL [facility] Monocytes/100 WBC (Bld) 7 % 3 - 12 % [facility] Monocytes/100 WBC (Bld) 0.46 % [facility] Neutrophils/100 WBC (Bld) 62 % 36 - 65 % [facility] Nucleated RBC/100 WBC (Bld) [Ratio] 0.0 % 0.0 per 100 WBC [facility] Platelet mean volume (Bld) [Entitic vol] 9.0 fL 8.1 - 13.5 fL [facility] Platelets (Bld) [#/Vol] 283 10*3/uL [facility] RBC (Bld) [#/Vol] 3.24 10*6/uL Low 4.21 - 5.7 7 m/uL [facility] Segmented neutrophils/100 WBC (Bld) 3.85 % [facility] WBC other (Bld) [#/Vol] 6.2 [facility] CBC with Diffon 04-28-2023 Abs. Basophil 0.04 k/uL Normal 0.00-0.20 [facility] Comment on above: Performed By: #### C DP, BMPX #### [facility] [place] [address] Program Planner: Hadley Smith MD Abs.Imm.Granulocyte 0.01 k/uL Normal 0.00-0.30 [facility] Comment on above: Performed By: #### C DP, BMPX #### [facility] [address] [place] [address] Program Planner: Hadley Smith MD Abs.Neutrophil (Seg) 3.85 k/uL Normal 1.50-8.10 [facility] Comment on above: Performed By: #### C DP, BMPX #### [facility] [address] [place] [address] Program Planner: Hadley Smith MD Basophils/100 WBC (Bld) 1 % Normal 0-2 [facility] Comment on above: Performed By: #### C DP, BMPX #### [facility] [address] [place] [address] Program Planner: Hadley Smith MD Eosinophils (Bld) [#/Vol] 0.25 10*3/uL Normal 0.00-0.44 [facility] Comment on above: Performed By: #### C DP, BMPX #### [facility] [address] [place] [address] Program Planner: Hadley Smith MD Eosinophils/100 WBC (Bld) 4 % Normal 1-4 [facility] Comment on above: Performed By: #### C DP, BMPX #### [facility] [address] [place] [address] Program Planner: Hadley Smith MD Erythrocyte distribution width (RBC) [Ratio] 12.9 % Normal 11.8-14.4 [facility] Comment on above: Performed By: #### C DP, BMPX #### [facility] [place] [address] Program Planner: Hadley Smith MD Hematocrit (Bld) [Volume fraction] 32.2 % Low 40.7-50.3 [facility] Comment on above: Performed By: #### C DP, BMPX #### [facility] [address] [place] [address] Program Planner: Hadley Smith MD Hemoglobin (Bld) [Mass/Vol] 10.7 g/dL Low 13.0-17.0 [facility] Comment on above: Performed By: #### C DP, BMPX #### [facility] [address] [place] [address] Program Planner: Hadley Smith MD Immature granulocytes/100 WBC (Bld) 0 % Normal 0 [facility] Comment on above: Performed By: #### C DP, BMPX #### [facility] [address] [place] [address] Program Planner: Hadley Smith MD Lymphocytes (Bld) [#/Vol] 1.60 10*3/uL Normal 1.10-3.70 [facility] Comment on above: Performed By: #### C DP, BMPX #### [facility] [address] [place] [address] Program Planner: Hadley Smith MD Lymphocytes/100 WBC (Bld) 26 % Normal 24-43 [facility] Comment on above: Performed By: #### C DP, BMPX #### [facility] [address] [place] [address] Program Planner: Hadley Smith MD MCH (RBC) [Entitic mass] 33.0 pg Normal 25.2-33.5 [facility] Comment on above: Performed By: #### C DP, BMPX #### [facility] [address] [facility] [place] [address] Program Planner: Hadley Smith MD MCHC (RBC) [Mass/Vol] 33.2 g/dL Normal 28.4-34.8 [facility] Comment on above: Performed By: #### C DP, BMPX #### [facility] [address] [place] [address]. [place] [address] Program Planner: Hadley Smith MD MCV (RBC) [Entitic vol] 99.4 fL Normal 82.6-102.9 [facility] Comment on above: Performed By: #### C DP, BMPX #### [facility] [address] [place] [address] Program Planner: Hadley Smith MD Monocytes (Bld) [#/Vol] 0.46 10*3/uL Normal 0.10-1.20 [facility] Comment on above: Performed By: #### C DP, BMPX #### [facility] [address] [place] [address] Program Planner: Hadley Smith MD Monocytes/100 WBC (Bld) 7 % Normal 3-12 [facility] Comment on above: Performed By: #### C DP, BMPX #### [facility] [address] [place] [address] Program Planner: Hadley Smith MD Neutrophil (Seg) 62 % Normal 36-65 [facility] Comment on above: Performed By: #### C DP, BMPX #### [facility] [address] [place] [address] Program Planner: Hadley Smith MD NRBC Automated 0.0 per 100 WBC Normal 0.0 [facility] Comment on above: Performed By: #### C DP, BMPX #### [facility] [address] [place], [place] [address]ia [facility] [place] [address] Program Planner: Hadley Smith MD Platelet mean volume (Bld) [Entitic vol] 9.0 fL Normal 8.1-13.5 [facility] Comment on above: Performed By: #### C DP, BMPX #### [facility] [address] [place], [place] [address] [address] Program Planner: Hadley Smith MD Platelets (Bld) [#/Vol] 283 10*3/uL Normal 138-453 [facility] Comment on above: Performed By: #### C DP, BMPX #### [facility] [address] [place] [address]. [place] [address] Program Planner: Hadley Smith MD RBC (Bld) [#/Vol] 3.24 10*6/uL Low 4.21-5.77 [facility] Comment on above: Performed By: #### C DP, BMPX #### [facility] [address] [place] [address] Program Planner: Hadley Smith MD WBC (Bld) [#/Vol] 6.2 10*3/uL Normal 3.5-11.3 [facility] Comment on above: Performed By: #### C DP, BMPX #### [facility] [address] [place] [address]. [place] [address] Program Planner: Hadley Smith MD Basic Metab w/rfx MGon 04-27 Anion gap [Moles/Vol] 18 mmol/L High 9-17 [facility] Comment on above: Performed By: #### C DP, BMPX #### [facility] [address] [place], [place] [address], [place] [address] Program Planner: Hadley Smith MD BUN/CRE Ratio 30 High 9-20 [facility] Comment on above: Performed By: #### C DP, BMPX #### [facility] [address] [facility] [place] [address] Program Planner: Hadley Smith MD Calcium [Mass/Vol] 9.2 mg/dL Normal 8.6-10.4 [facility] Comment on above: Performed By: #### C DP, BMPX #### [facility] [address] [place] [address] Program Planner: Hadley Smith MD Chloride [Moles/Vol] 106 mmol/L Normal 98-107 [facility] Comment on above: Performed By: #### C DP, BMPX #### [facility] [address] [place] [address] Program Planner: Hadley Smith MD CO2 [Moles/Vol] 24 mmol/L Normal 20-31 [facility] Comment on above: Performed By: #### C DP, BMPX #### [facility] [address] [place] [address] Program Planner: Hadley Smith MD Creatinine [Mass/Vol] 0.7 mg/dL Normal 0.7-1.2 [facility] Comment on above: Performed By: #### C DP, BMPX #### [facility] [address] [place] [address] Program Planner: Hadley Smith MD GFR/1.73 sq M.predicted among non-blacks MDRD (S/P/Bld) [Vol rate/Area] mL/min/{1.73_m2} Normal >60 [facility] Comment on above: Result Comment: These [...] Performed By: #### C DP, BMPX #### [facility] [place] [address] Program Planner: Hadley Smith MD Glucose [Mass/Vol] 69 mg/dL Low 70-99 [facility] Comment on above: Performed By: #### C DP, BMPX #### [facility] [address] [place] [address] Program Planner: Hadley Smith MD Potassium [Moles/Vol] 3.9 mmol/L Normal 3.7-5.3 [facility] Comment on above: Performed By: #### C DP, BMPX #### [facility] [address] [place] [address]. [place] [address] Program Planner: Hadley Smith MD Sodium [Moles/Vol] 148 mmol/L High 135-144 [facility] Comment on above: Performed By: #### C DP, BMPX #### [facility] [address] [place] [address]. [place] [address] Program Planner: Hadley Smith MD Urea nitrogen [Mass/Vol] 21 mg/dL Normal 8-23 [facility] Comment on above: Performed By: #### C DP, BMPX #### [facility] [address] [place] [address]. [place] [address] Program Planner: Hadley Smith MD Basic Metabolic Panel w/ Ref claudia to MGon 04-27-2023 Anion gap [Moles/Vol] 18 mmol/L High 9 - 17 mmol/L [facility] Calcium [Mass/Vol] 9.2 mg/dL 8.6 - 10. 4 mg/dL [facility] Chloride [Moles/Vol] 106 mmol/L 98 - 10 7 mmol/L [facility] CO2 [Moles/Vol] 24 mmol/L 20 - 31 mmol/L [facility] Creatinine [Mass/Vol] 0.7 mg/dL 0.7 - 1.2 mg/dL [facility] GFR/1.73 sq M.predicted MDRD (S/P/Bld) [Vol rate/Area] - PINF [facility] Comment on above: These results are not [...] that affects renal tubular secretion. Glucose [Mass/Vol] 69 mg/dL Low 70 - 99 mg/dL [facility] Interpretation and review of laboratory results Abnormal [facility] Potassium [Moles/Vol] 3.9 mmol/L 3.7 - 5.3 mmol/L [facility] Sodium [Moles/Vol] 148 mmol/L High 135 - 144 mmol/L [facility] Urea nitrogen [Mass/Vol] 21 mg/dL 8 - 23 mg/dL [facility] Urea nitrogen/Creatinine [Mass ratio] 30 mg/mg High 9 - 20 [facility] CBC with Auto Differentialon 04-27-2023 Basophils (Bld) [#/Vol] 0.06 10*3/uL [facility] Basophils/100 WBC (Bld) 1 % 0 - 2 % [facility] Eosinophils (Bld) [#/Vol] 0.11 10*3/uL [facility] Eosinophils/100 WBC (Bld) 1 % 1 - 4 % [facility] Erythrocyte distribution width (RBC) [Ratio] 12.8 % 11.8 - 14.4 % [facility] Hematocrit (Bld) [Volume fraction] 34.4 % Low 40.7 - 50.3 % [facility] Hemoglobin (Bld) [Mass/Vol] 11.0 g/dL Low 13.0 - 17.0 g/dL [facility] Immature granulocytes (Bld) [#/Vol] 0.01 10*3/uL [facility] Immature granulocytes/100 WBC (Bld) 0 % 0 [facility] Interpretation and review of laboratory results Abnormal [facility] Lymphocytes/100 WBC (Bld) 20 % Low 24 - 43 % [facility] Lymphocytes/100 WBC (Bld) 1.55 % [facility] MCH (RBC) [Entitic mass] 32.8 pg 25.2 - 33.5 pg [facility] MCHC (RBC) [Mass/Vol] 32.0 g/dL 28.4 - 34.8 g/dL [facility] MCV (RBC) [Entitic vol] 102.7 fL 82.6 - 102.9 fL [facility] Monocytes/100 WBC (Bld) 6 % 3 - 12 % [facility] Monocytes/100 WBC (Bld) 0.49 % [facility] Neutrophils/100 WBC (Bld) 72 % High 36 - 65 % [facility] Nucleated RBC/100 WBC (Bld) [Ratio] 0.0 % 0.0 per 100 WBC [facility] Platelet mean volume (Bld) [Entitic vol] 8.8 fL 8.1 - 13.5 fL [facility] Platelets (Bld) [#/Vol] 242 10*3/uL [facility] RBC (Bld) [#/Vol] 3.35 10*6/uL Low 4.21 - 5.7 7 m/uL [facility] Segmented neutrophils/100 WBC (Bld) 5.65 % [facility] WBC other (Bld) [#/Vol] 7.9 [facility] CBC with Diffon 04-27-2023 Abs. Basophil 0.06 k/uL Normal 0.00-0.20 [facility] Comment on above: Performed By: #### C DP, BMPX #### [facility] [address] [place] [address]. [place] [address] Program Planner: Hadley Smith MD Abs.Imm.Granulocyte 0.01 k/uL Normal 0.00-0.30 [facility] Comment on above: Performed By: #### C DP, BMPX #### [facility] [address] [place] [address] Program Planner: Hadley Smith MD Abs.Neutrophil (Seg) 5.65 k/uL Normal 1.50-8.10 [facility] Comment on above: Performed By: #### C DP, BMPX #### [facility] [address] [place] [address] Program Planner: Hadley Smith MD Basophils/100 WBC (Bld) 1 % Normal 0-2 [facility] Comment on above: Performed By: #### C DP, BMPX #### [facility] [address] [place] [address] Program Planner: Hadley Smith MD Eosinophils (Bld) [#/Vol] 0.11 10*3/uL Normal 0.00-0.44 [facility] Comment on above: Performed By: #### C DP, BMPX #### [facility] [address] [place] [address] Program Planner: Hadley Smith MD Eosinophils/100 WBC (Bld) 1 % Normal 1-4 [facility] Comment on above: Performed By: #### C DP, BMPX #### [facility] [address] [place] [address] Program Planner: Hadley Smith MD Erythrocyte distribution width (RBC) [Ratio] 12.8 % Normal 11.8-14.4 [facility] Comment on above: Performed By: #### C DP, BMPX #### [facility] [place] [address] Program Planner: Hadley Smith MD Hematocrit (Bld) [Volume fraction] 34.4 % Low 40.7-50.3 [facility] Comment on above: Performed By: #### C DP, BMPX #### [facility] [address] [place] [address] Program Planner: Hadley Smith MD Hemoglobin (Bld) [Mass/Vol] 11.0 g/dL Low 13.0-17.0 [facility] Comment on above: Performed By: #### C DP, BMPX #### [facility] [address] [place] [address] Program Planner: Hadley Smith MD Immature granulocytes/100 WBC (Bld) 0 % Normal 0 [facility] Comment on above: Performed By: #### C DP, BMPX #### [facility] [address] [place] [address] Program Planner: Hadley Smith MD Lymphocytes (Bld) [#/Vol] 1.55 10*3/uL Normal 1.10-3.70 [facility] Comment on above: Performed By: #### C DP, BMPX #### [facility] [address] [place] [address] Program Planner: Hadley Smith MD Lymphocytes/100 WBC (Bld) 20 % Low 24-43 [facility] Comment on above: Performed By: #### C DP, BMPX #### [facility] [address] [place] [address] Program Planner: Hadley Smith MD MCH (RBC) [Entitic mass] 32.8 pg Normal 25.2-33.5 [facility] Comment on above: Performed By: #### C DP, BMPX #### [facility] [place] [address] Program Planner: Hadley Smith MD MCHC (RBC) [Mass/Vol] 32.0 g/dL Normal 28.4-34.8 [facility] Comment on above: Performed By: #### C DP, BMPX #### [facility] [address] [place] [address]. [place] [address] Program Planner: Hadley Smith MD MCV (RBC) [Entitic vol] 102.7 fL Normal 82.6-102.9 [facility] Comment on above: Performed By: #### C DP, BMPX #### [facility] [address] [place] [address]. [place] [address] Program Planner: Haldey Smith MD Monocytes (Bld) [#/Vol] 0.49 10*3/uL Normal 0.10-1.20 [facility] Comment on above: Performed By: #### C DP, BMPX #### [facility] [address] [place] [address]. [place] [address] Program Planner: Hadley Smith MD Monocytes/100 WBC (Bld) 6 % Normal 3-12 [facility] Comment on above: Performed By: #### C DP, BMPX #### [facility] [address] [place] [address]. [place] [address] Program Planner: Hadley Smith MD Neutrophil (Seg) 72 % High 36-65 [facility] Comment on above: Performed By: #### C DP, BMPX #### [facility] [address] [place] [address]. [place] [address] Program Planner: Hadley Smith MD NRBC Automated 0.0 per 100 WBC Normal 0.0 [facility] Comment on above: Performed By: #### C DP, BMPX #### [facility] [address] [place] [address]. [place] [address] Program Planner: Hadley Smith MD Platelet mean volume (Bld) [Entitic vol] 8.8 fL Normal 8.1-13.5 [facility] Comment on above: Performed By: #### C DP, BMPX #### [facility] [address] [place] [address]. [place] [address] Program Planner: Hadley Smith MD Platelets (Bld) [#/Vol] 242 10*3/uL Normal 138-453 [facility] Comment on above: Performed By: #### C DP, BMPX #### [facility] [address] [place] [address]. [place] [address] Program Planner: Hadley Smith MD RBC (Bld) [#/Vol] 3.35 10*6/uL Low 4.21-5.77 [facility] Comment on above: Performed By: #### C DP, BMPX #### [facility] [address] [place] [address]. [place] [address] Program Planner: Hadley Smith MD WBC (Bld) [#/Vol] 7.9 10*3/uL Normal 3.5-11.3 [facility] Comment on above: Performed By: #### C DP, BMPX #### [facility] [address] [place] [address]. [place] [address] Program Planner: Hdaley Smith MD Specimen Rejectionon 024 Reason for rejection Unable to perform testing: Specimen clotted. Normal [facility] Comment on above: Performed By: #### C DP, BMPX #### [facility] [address] [place], [place] [address], [place] [address] Program Planner: Hadley Smith MD Source of sample .BLOOD Normal [facility] Comment on above: Performed By: #### C DP, BMPX #### [facility] [address] [place] [address] Program Planner: Hadley Smith MD Test ordered CDP Normal [facility] Comment on above: Performed By: #### C DP, BMPX #### [facility] [address] [facility] [place] [address] Program Planner: Hadley Smith MD Basic Metab w/rfx MGon 04-26 Anion gap [Moles/Vol] 13 mmol/L Normal 9-17 [facility] Comment on above: Performed By: #### C DP, BMPX #### [facility] [place] [address] Program Planner: Hadley Smith MD BUN/CRE Ratio 29 High 9-20 [facility] Comment on above: Performed By: #### C DP, BMPX #### [facility] [place] [address] Program Planner: Hadley Smith MD Calcium [Mass/Vol] 9.6 mg/dL Normal 8.6-10.4 [facility] Comment on above: Performed By: #### C DP, BMPX #### [facility] [place] [address] Program Planner: Hadley Smith MD Chloride [Moles/Vol] 106 mmol/L Normal 98-107 [facility] Comment on above: Performed By: #### C DP, BMPX #### [facility] [place] [address] Program Planner: Hadley Smith MD CO2 [Moles/Vol] 28 mmol/L Normal 20-31 [facility] Comment on above: Performed By: #### C DP, BMPX #### [facility] [address] [place] [address] Program Planner: Hadley Smith MD Creatinine [Mass/Vol] 0.8 mg/dL Normal 0.7-1.2 [facility] Comment on above: Performed By: #### C DP, BMPX #### [facility] [address] [place] [address] Program Planner: Hadley Smith MD GFR/1.73 sq M.predicted among non-blacks MDRD (S/P/Bld) [Vol rate/Area] mL/min/{1.73_m2} Normal >60 [facility] Comment on above: Result Comment: These [...] Performed By: #### C DP, BMPX #### [facility] [place] [address] Program Planner: Hadley Smith MD Glucose [Mass/Vol] 83 mg/dL Normal 70-99 [facility] Comment on above: Performed By: #### C DP, BMPX #### [facility] [address] [place] [address]. [place] [address] Program Planner: Hadley Smith MD Potassium [Moles/Vol] 3.6 mmol/L Low 3.7-5.3 [facility] Comment on above: Performed By: #### C DP, BMPX #### [facility] [address] [facility]. [place], [place] [id number] Program Planner: Hadley Smith MD Sodium [Moles/Vol] 147 mmol/L High 135-144 [facility] Comment on above: Performed By: #### C DP, BMPX #### [facility] [address] [facility]. [place], [place] [id number] Program Planner: Hadley Smith MD Urea nitrogen [Mass/Vol] 23 mg/dL Normal 8-23 [facility] Comment on above: Performed By: #### C DP, BMPX #### [facility] [address] [facility] [place] [address] Program Planner: Hadley Smith MD Basic Metabolic Panel w/ Ref claudia to MG 04-26-2023 Anion gap [Moles/Vol] 13 mmol/L 9 - 17 mmol/L [facility] Calcium [Mass/Vol] 9.6 mg/dL 8.6 - 10. 4 mg/dL [facility] Chloride [Moles/Vol] 106 mmol/L 98 - 10 7 mmol/L [facility] CO2 [Moles/Vol] 28 mmol/L 20 - 31 mmol/L [facility] Creatinine [Mass/Vol] 0.8 mg/dL 0.7 - 1.2 mg/dL [facility] GFR/1.73 sq M.predicted MDRD (S/P/Bld) [Vol rate/Area] - PINF [facility] Comment on above: These results are not [...] that affects renal tubular secretion. Glucose [Mass/Vol] 83 mg/dL 70 - 99 mg/dL [facility] Interpretation and review of laboratory results Abnormal [facility] Potassium [Moles/Vol] 3.6 mmol/L Low 3.7 - 5.3 mmol/L [facility] Sodium [Moles/Vol] 147 mmol/L High 135 - 144 mmol/L [facility] Urea nitrogen [Mass/Vol] 23 mg/dL 8 - 23 mg/dL [facility] Urea nitrogen/Creatinine [Mass ratio] 29 mg/mg High 9 - 20 [facility] CBC with Auto Differentialon 04-26-2023 Basophils (Bld) [#/Vol] 0.05 10*3/uL [facility] Basophils/100 WBC (Bld) 1 % 0 - 2 % [facility] Eosinophils (Bld) [#/Vol] 0.09 10*3/uL [facility] Eosinophils/100 WBC (Bld) 1 % 1 - 4 % [facility] Erythrocyte distribution width (RBC) [Ratio] 13.1 % 11.8 - 14.4 % [facility] Hematocrit (Bld) [Volume fraction] 33.5 % Low 40.7 - 50.3 % [facility] Hemoglobin (Bld) [Mass/Vol] 10.9 g/dL Low 13.0 - 17.0 g/dL [facility] Immature granulocytes (Bld) [#/Vol] 0.02 10*3/uL [facility] Immature granulocytes/100 WBC (Bld) 0 % 0 [facility] Interpretation and review of laboratory results Abnormal [facility] Lymphocytes/100 WBC (Bld) 16 % Low 24 - 43 % [facility] Lymphocytes/100 WBC (Bld) 1.26 % [facility] MCH (RBC) [Entitic mass] 33.1 pg 25.2 - 33.5 pg [facility] MCHC (RBC) [Mass/Vol] 32.5 g/dL 28.4 - 34.8 g/dL [facility] MCV (RBC) [Entitic vol] 101.8 fL 82.6 - 102.9 fL [facility] Monocytes/100 WBC (Bld) 7 % 3 - 12 % [facility] Monocytes/100 WBC (Bld) 0.55 % [facility] Neutrophils/100 WBC (Bld) 75 % High 36 - 65 % [facility] Nucleated RBC/100 WBC (Bld) [Ratio] 0.0 % 0.0 per 100 WBC [facility] Platelet mean volume (Bld) [Entitic vol] 8.8 fL 8.1 - 13.5 fL [facility] Platelets (Bld) [#/Vol] 267 10*3/uL [facility] RBC (Bld) [#/Vol] 3.29 10*6/uL Low 4.21 - 5.7 7 m/uL [facility] Segmented neutrophils/100 WBC (Bld) 6.09 % [facility] WBC other (Bld) [#/Vol] 8.1 [facility] CBC with Diffon 04-26-2023 Abs. Basophil 0.05 k/uL Normal 0.00-0.20 [facility] Comment on above: Performed By: #### C DP, BMPX #### [facility] [address] [place] [address] Program Planner: Hadley Smith MD Abs.Imm.Granulocyte 0.02 k/uL Normal 0.00-0.30 [facility] Comment on above: Performed By: #### C DP, BMPX #### [facility] [address] [place] [address] Program Planner: Hadley Smith MD Abs.Neutrophil (Seg) 6.09 k/uL Normal 1.50-8.10 [facility] Comment on above: Performed By: #### C DP, BMPX #### [facility] [address] [place] [address] Program Planner: Hadley Smith MD Basophils/100 WBC (Bld) 1 % Normal 0-2 [facility] Comment on above: Performed By: #### C DP, BMPX #### [facility] [address] [facility] [place] [address] Program Planner: Hadley Smith MD Eosinophils (Bld) [#/Vol] 0.09 10*3/uL Normal 0.00-0.44 [facility] Comment on above: Performed By: #### C DP, BMPX #### [facility] [place] [address] Program Planner: Hadley Smith MD Eosinophils/100 WBC (Bld) 1 % Normal 1-4 [facility] Comment on above: Performed By: #### C DP, BMPX #### [facility] [address] [place] [address] Program Planner: Hadley Smith MD Erythrocyte distribution width (RBC) [Ratio] 13.1 % Normal 11.8-14.4 [facility] Comment on above: Performed By: #### C DP, BMPX #### [facility] [address] [place] [address] Program Planner: Hadley Smith MD Hematocrit (Bld) [Volume fraction] 33.5 % Low 40.7-50.3 [facility] Comment on above: Performed By: #### C DP, BMPX #### [facility] [address] [place] [address]. [place] [address] Program Planner: Hadley Smith MD Hemoglobin (Bld) [Mass/Vol] 10.9 g/dL Low 13.0-17.0 [facility] Comment on above: Performed By: #### C DP, BMPX #### [facility] [address] [place] [address] Program Planner: Hadley Smith MD Immature granulocytes/100 WBC (Bld) 0 % Normal 0 [facility] Comment on above: Performed By: #### C DP, BMPX #### [facility] [place] [address] Program Planner: Hadley Smith MD Lymphocytes (Bld) [#/Vol] 1.26 10*3/uL Normal 1.10-3.70 [facility] Comment on above: Performed By: #### C DP, BMPX #### [facility] [address] [place] [address] Program Planner: Hadley Smith MD Lymphocytes/100 WBC (Bld) 16 % Low 24-43 [facility] Comment on above: Performed By: #### C DP, BMPX #### [facility] [address] [place] [address] Program Planner: Hadley Smith MD MCH (RBC) [Entitic mass] 33.1 pg Normal 25.2-33.5 [facility] Comment on above: Performed By: #### C DP, BMPX #### [facility] [address] [place] [address] Program Planner: Hadley Smith MD MCHC (RBC) [Mass/Vol] 32.5 g/dL Normal 28.4-34.8 [facility] Comment on above: Performed By: #### C DP, BMPX #### [facility] [address] [place] [address] Program Planner: Hadley Smith MD MCV (RBC) [Entitic vol] 101.8 fL Normal 82.6-102.9 [facility] Comment on above: Performed By: #### C DP, BMPX #### [facility] [address] [place] [address] Program Planner: Hadley Smith MD Monocytes (Bld) [#/Vol] 0.55 10*3/uL Normal 0.10-1.20 [facility] Comment on above: Performed By: #### C DP, BMPX #### [facility] [address] [facility] [place] [address] Program Planner: Hadley Smith MD Monocytes/100 WBC (Bld) 7 % Normal 3-12 [facility] Comment on above: Performed By: #### C DP, BMPX #### [facility] [address] [facility] [place] [address] Program Planner: Hadley Smith MD Neutrophil (Seg) 75 % High 36-65 [facility] Comment on above: Performed By: #### C DP, BMPX #### [facility] [address] [place] [address]. [place] [address] Program Planner: Hadley Smith MD NRBC Automated 0.0 per 100 WBC Normal 0.0 [facility] Comment on above: Performed By: #### C DP, BMPX #### [facility] [address] [place] [address]. [place] [address] Program Planner: Hadley Smith MD Platelet mean volume (Bld) [Entitic vol] 8.8 fL Normal 8.1-13.5 [facility] Comment on above: Performed By: #### C DP, BMPX #### [facility] [place] [address] Program Planner: Hadley Smith MD Platelets (Bld) [#/Vol] 267 10*3/uL Normal 138-453 [facility] Comment on above: Performed By: #### C DP, BMPX #### [facility] [place] [address] Program Planner: Hadley Smith MD RBC (Bld) [#/Vol] 3.29 10*6/uL Low 4.21-5.77 [facility] Comment on above: Performed By: #### C DP, BMPX #### [facility] [address] [place] [address] Program Planner: Hadley Smith MD WBC (Bld) [#/Vol] 8.1 10*3/uL Normal 3.5-11.3 [facility] Comment on above: Performed By: #### C DP, BMPX #### [facility] [address] [place] [address] Program Planner: Hadley Smith MD EEG awake and asleepon 04-26 Stevie Palafox MD 04/26/2023 5:34 PM EEG REPORT Patient: Amol Taylor Age: 68 y.o. Referring Provider: Carson Matamoros MD Attending Physician: Bolivar Valdovinos DO History: This is a routine scalp EEG recorded with time-locked video monitoring. Patient is being evaluated for seizure like activity. This EEG was performed to evaluate for focal and epileptiform abnormalities. Amol Taylor Current Facility-Administere d Medications Medication Dose Route Frequency Provider Last Rate Last Admin LORazepam (ATIVAN) injection 4 mg 4 mg IntraVENous Q5 Min PRN Simran Villa APRN - NP 4 mg at 04/26/23 0330 lacosamide (VIMPAT) 150 mg in sodium chloride 0.9 % 65 mL IVPB 150 mg IntraVENous BID Ladi Saab DO 130 mL/hr at 04/26/23 1720 150 mg at 04/26/23 1720 levETIRAcetam (KEPPRA) injection 1,500 mg 1,500 mg IntraVENous Daily Simran Villa APRN - SAFETY PATROL OFFICER 1,500 mg at 04/26/23 0907 levETIRAcetam (KEPPRA) injection 2,000 mg 2,000 mg IntraVENous Nightly Simran Vlila APRN - SAFETY PATROL OFFICER 2,000 mg at 04/25/23 204 sodium chloride flush 0.9 % injection 5-40 mL 5-40 mL IntraVENous 2 times per day GovindGloria GENERAL STUDIES PROGRAM CHAIR - ORTHOTIC ASSISTANT 10 mL at 04/25/23 2042 sodium chloride flush 0.9 % injection 10 mL 10 mL IntraVENous PRN GovindGloria blakely GENERAL STUDIES PROGRAM CHAIR - ORTHOTIC ASSISTANT 0.9 % sodium chloride infusion IntraVENous PRN GovindGloria GENERAL STUDIES PROGRAM CHAIR - ORTHOTIC ASSISTANT 5 mL/hr at 04/26/23 0747 New Bag at 04/26/23 0747 potassium chloride (KLOR-CON M) extended release tablet 40 mEq 40 mEq Oral PRN GovindGloria APRN - ORTHOTIC ASSISTANT Or potassium bicarb-citric acid (EFFER-K) effervescent tablet 40 mEq 40 mEq Oral PRN GovindGloria APRN - OTONIEL Or potassium chloride 10 mEq/100 mL IVPB (Peripheral Line) 10 mEq IntraVENous PRN GovindGloria blakely APRN - ORTHOTIC ASSISTANT magnesium sulfate 1000 mg in dextrose 5% 100 mL IVPB 1,000 mg IntraVENous PRN Gloria Faust GENERAL STUDIES PROGRAM CHAIR - ORTHOTIC ASSISTANT enoxaparin (LOVENOX) injection 40 mg 40 mg SubCUTAneous Daily GovindGloria blakely GENERAL STUDIES PROGRAM CHAIR - ORTHOTIC ASSISTANT 40 mg at 04/26/23 0907 ondansetron (ZOFRAN-ODT) disintegrating tablet 4 mg 4 mg Oral Q8H PRN Gloria Faust APRN - OTONIEL Or ondansetron (ZOFRAN) injection 4 mg 4 mg IntraVENous Q6H PRN GovindGloria blakely GENERAL STUDIES PROGRAM CHAIR - ORTHOTIC ASSISTANT acetaminophen (TYLENOL) tablet 650 mg 650 mg Oral Q6H PRN Gloria Faust APRN - OTONIEL Or acetaminophen (TYLENOL) suppository 650 mg 650 mg Rectal Q6H PRN Gloria Faust APRN - ORTHOTIC ASSISTANT 0.9 % sodium chloride infusion IntraVENous Continuous Gloria Faust APRN - ORTHOTIC ASSISTANT 50 mL/hr at 04/26/23 0440 New Bag at 04/26/23 0440 prochlorperazine (COMPAZINE) injection 10 mg 10 mg IntraVENous Q6H PRN Gloria Faust APRN - ORTHOTIC ASSISTANT Technical Description: This is a 22 channel EEG and 1 channel of EKG performed with time-locked video. Electrodes were placed utilizing the International 10-20 system of placement. The patient was not sleep deprived. This recording was obtained during wakefulness. EEG done on 04/26/2023 EEG Description: At the onset of the study patient is awake and agitated with background demonstrating significant contamination with muscle artifacts and movement artifacts and electrode artifacts making interpretation limited. At times, as the patient drowses, there are slow lateralized eye movements. Posterior dominant background activity with mixed delta and theta activities at 4-5 Hz frequencies at an amplitude of 20-30 V. No clear-cut anterior posterior gradient noted. Sleep is not recorded. Activation procedures were not performed. Activation procedures: Hyperventilation: Not done. Photic stimulation: Not done. The EKG channel demonstrated a normal sinus rhythm. Electrodiagnostic interpretation This EEG performed predominantly during wakefulness is abnormal with diffusely slow background with mixed delta and theta frequencies suggestive of moderately severe encephalopathy of various etiologies. Throughout the study, patient is agitated with contaminated background making interpretation limited. Silas-wave discharges cannot be excluded through these artifacts. Clinical correlation is recommended. Stevie Palafox MD 04/26/2023 5:29 PM [facility] XR ABDOMEN (KUB) (SINGLE AP VIEW)on 04-26-2023 XR ABDOMEN (KUB) (SINGLE AP VIEW) EXAMINATION: ONE SUPINE XRAY VIEW(S) OF THE ABDOMEN 04/26/2023 8:59 am COMPARISON: 04/24/2023, 04/23/2023 HISTORY: ORDERING SYSTEM PROVIDED HISTORY: sbo vs ileus TECHNOLOGIST PROVIDED HISTORY: sbo vs ileus Reason for Exam: SBO vs ileus FINDINGS: Gas is present within nondilated small and large bowel. The enteric tube tip and side hole project at the level of the body of the stomach. IMPRESSION: Nonobstructive bowel gas pattern. Enteric tube remains in place. Interpreted by: Daquan Mcdermott MD Signed by: Daquan Mcdermott MD 04/26/23 Final result Normal [facility] XR Abdomen Single viewon Nonobstructive bowel gas pattern. Enteric tube remains in place. PN RIS CONSOLIDATED EXAMINATION: ONE SUPINE XRAY VIEW(S) OF THE ABDOMEN 04/26/2023 8:59 am COMPARISON: 04/24/2023, 04/23/2023 HISTORY: ORDERING SYSTEM PROVIDED HISTORY: sbo vs ileus TECHNOLOGIST PROVIDED HISTORY: sbo vs ileus Reason for Exam: SBO vs ileus FINDINGS: Gas is present within nondilated small and large bowel. The enteric tube tip and side hole project at the level of the body of the stomach. [facility] RIS Daquan Wilson MD - 04/26/2023 EXAMINATION: ONE SUPINE XRAY VIEW(S) OF THE ABDOMEN 04/26/2023 8:59 am COMPARISON: 04/24/2023, 04/23/2023 HISTORY: ORDERING SYSTEM PROVIDED HISTORY: sbo vs ileus TECHNOLOGIST PROVIDED HISTORY: sbo vs ileus Reason for Exam: SBO vs ileus FINDINGS: Gas is present within nondilated small and large bowel. The enteric tube tip and side hole project at the level of the body of the stomach. IMPRESSION: Nonobstructive bowel gas pattern. Enteric tube remains in place. [facility] Radiology Study observation (narrative) [facility] XR Abdomen Single viewOrdere d By: Daquan Mcdermott on 04-26-2023 [employer] Work Phone: BUN & Creatinineon 4 Creatinine [Mass/Vol] 0.7 mg/dL 0.7 - 1.2 mg/dL [facility] GFR/1.73 sq M.predicted MDRD (S/P/Bld) [Vol rate/Area] - PINF [facility] Comment on above: These results are not [...] following therapy that affects renal tubular secretion. Interpretation and review of laboratory results Abnormal [facility] Urea nitrogen [Mass/Vol] 24 mg/dL High 8 - 23 mg/dL [facility] BUN + Creatinineon 4 Creatinine [Mass/Vol] 0.7 mg/dL Normal 0.7-1.2 [facility] Comment on above: Performed By: #### B [facility] #### [facility] [address] [facility] [place] [address] Program Planner: Hadley Smith MD GFR/1.73 sq M.predicted among non-blacks MDRD (S/P/Bld) [Vol rate/Area] mL/min/{1.73_m2} Normal >60 [facility] Comment on above: Result Comment: These [...] renal tubular secretion. Performed By: #### B [facility] #### [facility] [address] [facility] [place] [address] Program Planner: Hadley Smith MD Urea nitrogen [Mass/Vol] 24 mg/dL High 8-23 [facility] Comment on above: Performed By: #### B UNCRT #### [facility] [address] [facility] [place] [address] Program Planner: Hadley Smith MD Basic Metabolic Panelon -2 Anion gap [Moles/Vol] 9 mmol/L 9 - 17 mmol/L [facility] Calcium [Mass/Vol] 9.2 mg/dL 8.6 - 10. 4 mg/dL [facility] Hyper9 Chloride [Moles/Vol] 105 mmol/L 98 - 10 7 mmol/L [facility] Hyper9 CO2 [Moles/Vol] 28 mmol/L 20 - 31 mmol/L [facility] Hyper9 Creatinine [Mass/Vol] 0.8 mg/dL 0.7 - 1.2 mg/dL [facility] GFR/1.73 sq M.predicted MDRD (S/P/Bld) [Vol rate/Area] - PINF [facility] Comment on above: These results are not [...] that affects renal tubular secretion. Glucose [Mass/Vol] 83 mg/dL 70 - 99 mg/dL [facility] Interpretation and review of laboratory results Abnormal [facility] Potassium [Moles/Vol] 3.7 mmol/L 3.7 - 5.3 mmol/L [facility] Sodium [Moles/Vol] 142 mmol/L 135 - 144 mmol/L [facility] Urea nitrogen [Mass/Vol] 23 mg/dL 8 - 23 mg/dL [facility] Urea nitrogen/Creatinine [Mass ratio] 29 mg/mg High 9 - 20 [facility] Basic Metabolic Profon 04-25 Anion gap [Moles/Vol] 9 mmol/L Normal 9-17 [facility] Comment on above: Performed By: #### B MPX, CDP #### [facility] [place] [address] Program Planner: Hadley Smith MD BUN/CRE Ratio 29 High 9-20 [facility] Comment on above: Performed By: #### B MPX, CDP #### [facility] [place] [address] Program Planner: Hadley Smith MD Calcium [Mass/Vol] 9.2 mg/dL Normal 8.6-10.4 [facility] Comment on above: Performed By: #### B MPX, CDP #### [facility] [place], [place] [id number] Program Planner: Hadley Smith MD Chloride [Moles/Vol] 105 mmol/L Normal 98-107 [facility] Comment on above: Performed By: #### B MPX, CDP #### [facility] [address] [place] [address] Program Planner: Hadley Smith MD CO2 [Moles/Vol] 28 mmol/L Normal 20-31 [facility] Comment on above: Performed By: #### B MPX, CDP #### [facility] [address] [facility] [address] Program Planner: Hadley Smith MD Creatinine [Mass/Vol] 0.8 mg/dL Normal 0.7-1.2 [facility] Comment on above: Performed By: #### B MPX, CDP #### [facility] [address] [facility] [place] [address] Program Planner: Hadley Smith MD GFR/1.73 sq M.predicted among non-blacks MDRD (S/P/Bld) [Vol rate/Area] mL/min/{1.73_m2} Normal >60 [facility] Comment on above: Result Comment: These [...] tubular secretion. Performed By: #### B MPX, CDP #### [facility] [address] [place] [address] Program Planner: Hadley Smith MD Glucose [Mass/Vol] 83 mg/dL Normal 70-99 [facility] Comment on above: Performed By: #### B MPX, CDP #### [facility] [address] [place] [address] Program Planner: Hdaley Smith MD Potassium [Moles/Vol] 3.7 mmol/L Normal 3.7-5.3 [facility] Comment on above: Performed By: #### B MPX, CDP #### [facility] [address] [place] [address] Program Planner: Hadley Smith MD Sodium [Moles/Vol] 142 mmol/L Normal 135-144 [facility] Comment on above: Performed By: #### B MPX, CDP #### [facility] [address] [place] [address] Program Planner: Hadley Smith MD Urea nitrogen [Mass/Vol] 23 mg/dL Normal 8-23 [facility] Comment on above: Performed By: #### B MPX, CDP #### [facility] [address] [place] [address] Program Planner: Hadley Smith MD CBC with Auto Differentialon 04-25-2023 Basophils (Bld) [#/Vol] 0.04 10*3/uL [facility] Basophils/100 WBC (Bld) 1 % 0 - 2 % [facility] Eosinophils (Bld) [#/Vol] 0.23 10*3/uL [facility] Eosinophils/100 WBC (Bld) 4 % 1 - 4 % [facility] Erythrocyte distribution width (RBC) [Ratio] 13.2 % 11.8 - 14.4 % [facility] Hematocrit (Bld) [Volume fraction] 32.0 % Low 40.7 - 50.3 % [facility] Hemoglobin (Bld) [Mass/Vol] 10.2 g/dL Low 13.0 - 17.0 g/dL [facility] Immature granulocytes (Bld) [#/Vol] 0.06 10*3/uL [facility] Immature granulocytes/100 WBC (Bld) 1 % High 0 [facility] Interpretation and review of laboratory results Abnormal [facility] Lymphocytes/100 WBC (Bld) 23 % Low 24 - 43 % [facility] Lymphocytes/100 WBC (Bld) 1.51 % [facility] MCH (RBC) [Entitic mass] 32.8 pg 25.2 - 33.5 pg [facility] MCHC (RBC) [Mass/Vol] 31.9 g/dL 28.4 - 34.8 g/dL [facility] MCV (RBC) [Entitic vol] 102.9 fL 82.6 - 102.9 fL [facility] Monocytes/100 WBC (Bld) 7 % 3 - 12 % [facility] Monocytes/100 WBC (Bld) 0.45 % [facility] Neutrophils/100 WBC (Bld) 64 % 36 - 65 % [facility] Nucleated RBC/100 WBC (Bld) [Ratio] 0.0 % 0.0 per 100 WBC [facility] Platelet mean volume (Bld) [Entitic vol] 8.9 fL 8.1 - 13.5 fL [facility] Platelets (Bld) [#/Vol] 283 10*3/uL [facility] RBC (Bld) [#/Vol] 3.11 10*6/uL Low 4.21 - 5.7 7 m/uL [facility] Segmented neutrophils/100 WBC (Bld) 4.22 % [facility] WBC other (Bld) [#/Vol] 6.5 [facility] CBC with Diffon 04-25-2023 Abs. Basophil 0.04 k/uL Normal 0.00-0.20 [facility] Comment on above: Performed By: #### B MPX, CDP #### [facility] [address] [place] [address] Program Planner: Hadley Smith MD Abs.Imm.Granulocyte 0.06 k/uL Normal 0.00-0.30 [facility] Comment on above: Performed By: #### B MPX, CDP #### [facility] [address] [place] [address] Program Planner: Hadley Smith MD Abs.Neutrophil (Seg) 4.22 k/uL Normal 1.50-8.10 [facility] Comment on above: Performed By: #### B MPX, CDP #### [facility] [facility] [place] [address] Program Planner: Hadley Smith MD Basophils/100 WBC (Bld) 1 % Normal 0-2 [facility] Comment on above: Performed By: #### B MPX, CDP #### [facility] [address] [place] [address]. [place] [address] Program Planner: Hadley Smith MD Eosinophils (Bld) [#/Vol] 0.23 10*3/uL Normal 0.00-0.44 [facility] Comment on above: Performed By: #### B MPX, CDP #### [facility] [address] [place] [address]. [place] [address] Program Planner: Hadley Smith MD Eosinophils/100 WBC (Bld) 4 % Normal 1-4 [facility] Comment on above: Performed By: #### B MPX, CDP #### [facility] [address] [place] [address]. [place] [address] Program Planner: Hadley Smith MD Erythrocyte distribution width (RBC) [Ratio] 13.2 % Normal 11.8-14.4 [facility] Comment on above: Performed By: #### B MPX, CDP #### [facility] [address] [place] [address]. [place] [address] Program Planner: Hadley Smith MD Hematocrit (Bld) [Volume fraction] 32.0 % Low 40.7-50.3 [facility] Comment on above: Performed By: #### B MPX, CDP #### [facility] [address] [place], [place] [address], [place] [address] Program Planner: Hadley Smith MD Hemoglobin (Bld) [Mass/Vol] 10.2 g/dL Low 13.0-17.0 [facility] Comment on above: Performed By: #### B MPX, CDP #### [facility] [address] [place] [address] Program Planner: Hadley Smith MD Immature granulocytes/100 WBC (Bld) 1 % High 0 [facility] Comment on above: Performed By: #### B MPX, CDP #### [facility] [address] [place] [address] Program Planner: Hadley Smith MD Lymphocytes (Bld) [#/Vol] 1.51 10*3/uL Normal 1.10-3.70 [facility] Comment on above: Performed By: #### B MPX, CDP #### [facility] [address] [place] [address] Program Planner: Hadley Smith MD Lymphocytes/100 WBC (Bld) 23 % Low 24-43 [facility] Comment on above: Performed By: #### B MPX, CDP #### [facility] [address] [place] [address] Program Planner: Hadley Smith MD MCH (RBC) [Entitic mass] 32.8 pg Normal 25.2-33.5 [facility] Comment on above: Performed By: #### B MPX, CDP #### [facility] [address] [place] [address] Program Planner: Hadley Smith MD MCHC (RBC) [Mass/Vol] 31.9 g/dL Normal 28.4-34.8 [facility] Comment on above: Performed By: #### B MPX, CDP #### [facility] [address] [facility] [place] [address] Program Planner: Hadley Smith MD MCV (RBC) [Entitic vol] 102.9 fL Normal 82.6-102.9 [facility] Comment on above: Performed By: #### B MPX, CDP #### [facility] [address] [place] [address]. [place] [address] Program Planner: Hadley Smith MD Monocytes (Bld) [#/Vol] 0.45 10*3/uL Normal 0.10-1.20 [facility] Comment on above: Performed By: #### B MPX, CDP #### [facility] [address] [place] [address]. [place] [address] Program Planner: Hadley Smith MD Monocytes/100 WBC (Bld) 7 % Normal 3-12 [facility] Comment on above: Performed By: #### B MPX, CDP #### [facility] [address] [place] [address]. [place] [address] Program Planner: Hadley Smith MD Neutrophil (Seg) 64 % Normal 36-65 [facility] Comment on above: Performed By: #### B MPX, CDP #### [facility] [address] [place] [address]. [place] [address] Program Planner: Hadley Smith MD NRBC Automated 0.0 per 100 WBC Normal 0.0 [facility] Comment on above: Performed By: #### B MPX, CDP #### [facility] [address] [place] [address]. [place] [address] Program Planner: Hadley Smith MD Platelet mean volume (Bld) [Entitic vol] 8.9 fL Normal 8.1-13.5 [facility] Comment on above: Performed By: #### B MPX, CDP #### [facility] [address] [place] [address] Program Planner: Hadley Smith MD Platelets (Bld) [#/Vol] 283 10*3/uL Normal 138-453 [facility] Comment on above: Performed By: #### B MPX, CDP #### [facility] [address] [place] [address] Program Planner: Hadley Smith MD RBC (Bld) [#/Vol] 3.11 10*6/uL Low 4.21-5.77 [facility] Comment on above: Performed By: #### B MPX, CDP #### [facility] [address] [place] [address] Program Planner: Hadley Smith MD WBC (Bld) [#/Vol] 6.5 10*3/uL Normal 3.5-11.3 [facility] Comment on above: Performed By: #### B MPX, CDP #### [facility] [address] [place] [address] Program Planner: Hadley Smith MD Lactate, Sepsison 04-25-2023 Lactic Acid, Sepsis 0.6 mmol/L Normal 0.5-1.9 [facility] Comment on above: Performed By: #### B MPX, CDP #### [facility] [address] [address] Program Planner: Hadley Smith MD Lactate (BldV) [Moles/Vol] 0.6 mmol/L 0.5 - 1.9 mmol/L [facility] Portable XR Chest AP single viewon 04-25-2023 Enteric tube in satisfactory position. No acute process in the lungs. [facility] RIS CONSOLIDATED EXAMINATION: ONE XRAY VIEW OF THE CHEST 04/25/2023 5:45 am COMPARISON: 02/13/2023 HISTORY: ORDERING SYSTEM PROVIDED HISTORY: abnormal lung sounds TECHNOLOGIST PROVIDED HISTORY: abnormal lung sounds Reason for Exam: abnormal lung sounds Additional signs and symptoms: abnormal lung sounds FINDINGS: Insert NG tube scratch the NG tube is in satisfactory position with tip and proximal port in the body of the stomach. Left chest wall stimulator device is seen with lead projecting into the neck. No acute consolidation or pulmonary edema. No evidence of pleural effusion or pneumothorax. Cardiomediastinal silhouette and bony thorax are unchanged. [facility] Greg Montenegro MD - 04/25/2023 EXAMINATION: ONE XRAY VIEW OF THE CHEST 04/25/2023 5:45 am COMPARISON: 02/13/2023 HISTORY: ORDERING SYSTEM PROVIDED HISTORY: abnormal lung sounds TECHNOLOGIST PROVIDED HISTORY: abnormal lung sounds Reason for Exam: abnormal lung sounds Additional signs and symptoms: abnormal lung sounds FINDINGS: Insert NG tube scratch the NG tube is in satisfactory position with tip and proximal port in the body of the stomach. Left chest wall stimulator device is seen with lead projecting into the neck. No acute consolidation or pulmonary edema. No evidence of pleural effusion or pneumothorax. Cardiomediastinal silhouette and bony thorax are unchanged. IMPRESSION: Enteric tube in satisfactory position. No acute process in the lungs. [facility] Radiology Study observation (narrative) [facility] Portable XR Chest AP single viewOrdered By: Greg Hernandez on 04-25-2023 [facility] Work Phone: XR ABDOMEN FOR NG/OG/NE TUBE PLACEMENTon 04-25-2023 XR ABDOMEN FOR NG/OG/NE TUBE PLACEMENT EXAMINATION: ONE SUPINE XRAY VIEW(S) OF THE ABDOMEN 04/24/2023 10:50 pm COMPARISON: Radiographs of the abdomen on 02/11/2023. HISTORY: ORDERING SYSTEM PROVIDED HISTORY: Confirmation of course of NG/OG/NE tube and location of tip of tube TECHNOLOGIST PROVIDED HISTORY: Confirmation of course of NG/OG/NE tube and location of tip of tube Portable?->Yes Reason for Exam: Confirmation of course of NG/OG/NE tube and location of tip of tube Additional signs and symptoms: Confirmation of course of NG/OG/NE tube and location of tip of tube FINDINGS: There is NG tube extended into upper stomach, oriented transversely between the fundus and upper aspect of body of stomach. About 13 cm of NG tube extending into stomach. The side-hole of the NG tube appears to be 5.5 cm distal to the level of GE junction. Moderate amount of gas and stool scattered in the proximal and mid colon. Moderate amount of gas can be identified in some loops of small bowel mainly in the left side of abdomen. No pneumoperitoneum. Base of lungs are clear. IMPRESSION: 1. NG tube extends into the upper stomach. 2. Moderate amount of gas and stool scattered in the proximal and mid colon. Moderate amount of gas can be identified in some loops of small bowel mainly in the left side of abdomen. Interpreted by: Nik Bae MD Signed by: Nik Bae MD 04/25/23 Final result Normal [facility] 1. NG tube extends into the upper stomach. 2. Moderate amount of gas and stool scattered in the proximal and mid colon. Moderate amount of gas can be identified in some loops of small bowel mainly in the left side of abdomen. PN RIS CONSOLIDATED EXAMINATION: ONE SUPINE XRAY VIEW(S) OF THE ABDOMEN 04/24/2023 10:50 pm COMPARISON: Radiographs of the abdomen on 02/11/2023. HISTORY: ORDERING SYSTEM PROVIDED HISTORY: Confirmation of course of NG/OG/NE tube and location of tip of tube TECHNOLOGIST PROVIDED HISTORY: Confirmation of course of NG/OG/NE tube and location of tip of tube Portable?->Yes Reason for Exam: Confirmation of course of NG/OG/NE tube and location of tip of tube Additional signs and symptoms: Confirmation of course of NG/OG/NE tube and location of tip of tube FINDINGS: There is NG tube extended into upper stomach, oriented transversely between the fundus and upper aspect of body of stomach. About 13 cm of NG tube extending into stomach. The side-hole of the NG tube appears to be 5.5 cm distal to the level of GE junction. Moderate amount of gas and stool scattered in the proximal and mid colon. Moderate amount of gas can be identified in some loops of small bowel mainly in the left side of abdomen. No pneumoperitoneum. Base of lungs are clear. [facility] RIS CONSOLIDATED Nik Bae MD - 04/25/2023 EXAMINATION: ONE SUPINE XRAY VIEW(S) OF THE ABDOMEN 04/24/2023 10:50 pm COMPARISON: Radiographs of the abdomen on 02/11/2023. HISTORY: ORDERING SYSTEM PROVIDED HISTORY: Confirmation of course of NG/OG/NE tube and location of tip of tube TECHNOLOGIST PROVIDED HISTORY: Confirmation of course of NG/OG/NE tube and location of tip of tube Portable?->Yes Reason for Exam: Confirmation of course of NG/OG/NE tube and location of tip of tube Additional signs and symptoms: Confirmation of course of NG/OG/NE tube and location of tip of tube FINDINGS: There is NG tube extended into upper stomach, oriented transversely between the fundus and upper aspect of body of stomach. About 13 cm of NG tube extending into stomach. The side-hole of the NG tube appears to be 5.5 cm distal to the level of GE junction. Moderate amount of gas and stool scattered in the proximal and mid colon. Moderate amount of gas can be identified in some loops of small bowel mainly in the left side of abdomen. No pneumoperitoneum. Base of lungs are clear. IMPRESSION: 1. NG tube extends into the upper stomach. 2. Moderate amount of gas and stool scattered in the proximal and mid colon. Moderate amount of gas can be identified in some loops of small bowel mainly in the left side of abdomen. [facility] [employer] [facility] XR ABDOMEN FOR NG/OG/NE TUBE PLACEMENTOrdered By: Nik Bae on 04-25-2023 [facility] [address] [facility] Work Phone: XR CHEST PORTABLEon 04-25-19 24 XR CHEST PORTABLE EXAMINATION: ONE XRAY VIEW OF THE CHEST 04/25/2023 5:45 am COMPARISON: 02/13/2023 HISTORY: ORDERING SYSTEM PROVIDED HISTORY: abnormal lung sounds TECHNOLOGIST PROVIDED HISTORY: abnormal lung sounds Reason for Exam: abnormal lung sounds Additional signs and symptoms: abnormal lung sounds FINDINGS: Insert NG tube scratch the NG tube is in satisfactory position with tip and proximal port in the body of the stomach. Left chest wall stimulator device is seen with lead projecting into the neck. No acute consolidation or pulmonary edema. No evidence of pleural effusion or pneumothorax. Cardiomediastinal silhouette and bony thorax are unchanged. IMPRESSION: Enteric tube in satisfactory position. No acute process in the lungs. Interpreted by: Greg Hernandez MD Signed by: Greg Hernandez MD 04/25/23 Final result Normal [facility] XR ABDOMEN FOR NG/OG/NE TUBE PLACEMENTon 04-24-2023 Radiology Study observation (narrative) [facility] BASIC METABOLIC PANLon 04-20 Anion gap [Moles/Vol] 9 mmol/L Normal 5-15 [facility] Comment on above: Performed By: #### C BCA, BMP, 66131-9, 7-1, 70409-6, FEPR, THYR, 2276-4, 2284-8, 2131-11 #### [facility] ([id number]) [address], [address] [place] [address] Calcium [Mass/Vol] 9.0 mg/dL Normal 8.5-10.5 [facility] Comment on above: Performed By: #### C BCA, BMP, 64797-9, 7-1, 00955-5, FEPR, THYR, 2276-4, 2284-8, 2131-11 #### [facility] ([id number]) [address], [address] [place] [address] Chloride [Moles/Vol] 108 mmol/L Normal 98-109 [facility] Comment on above: Performed By: #### C BCA, BMP, 25604-7, 7-1, 21948-2, FEPR, THYR, 2276-4, 2284-8, 2131-11 #### [facility] ([id number]) [address], [address] [place] [address] CO2 [Moles/Vol] 20 mmol/L Low 22-32 [facility] Comment on above: Performed By: #### C BCA, BMP, 33511-1, 2777-1, 68457-0, FEPR, THYR, 2276-4, 2284-8, 9 #### [facility] ([id number]) [address], [address] [place] [address] Creatinine [Mass/Vol] 0.83 mg/dL Normal 0.60-1.30 [facility] Comment on above: Result Comment: METH OD TRACEABLE TO IDMS STANDARD Performed By: #### C BCA, BMP, 33288-4, 2777-1, 29196-2, FEPR, THYR, 2276-4, 2284-8, 2131-11 #### [facility] ([id number]) [address], [address] [address] eGFR (CKD-EPI) NON-RACE DEPENDENT >90 Normal >59 [facility] Comment on above: Result Comment: Reported eGFR is based on the CKD-EPI 2020 equation that does not use a race coefficient. Performed By: #### C BCA, BMP, 13835-3, 2777-1, 94529-5, FEPR, THYR, 2276-4, 2283-8, 2131-11 #### [facility] ([id number]) [address] [address] Glucose [Mass/Vol] 74 mg/dL Normal 65-99 [facility] Comment on above: Performed By: #### C BCA, BMP, 01241-6, 2777-1, 63690-0, FEPR, THYR, 2276-4, 2284-8, 2131-11 #### [facility] ([id number]) [address] [address] Potassium [Moles/Vol] 5.0 mmol/L Normal 3.5-5.0 [facility] Comment on above: Performed By: #### C BCA, BMP, 28867-7, 2777-1, 91850-4, FEPR, THYR, 2276-4, 2284-8, 2131-11 #### [facility] ([id number]) [address] [address] Sodium [Moles/Vol] 137 mmol/L Normal 134-146 [facility] Comment on above: Performed By: #### C BCA, BMP, 98472-1, 2777-1, 89057-1, FEPR, THYR, 2276-4, 2284-8, 2131-11 #### [facility] ([id number]) [address], [address] [place] [address] Urea nitrogen [Mass/Vol] 20 mg/dL Normal 5-27 [facility] Comment on above: Performed By: #### C BCA, BMP, 02075-2, 2777-1, 45873-8, FEPR, THYR, 2276-4, 2284-8, 2131-11 #### [facility] ([id number]) [address] [facility], [address] [place] [address] Basic Metabolic Panelon 04-05 Anion gap [Moles/Vol] 9 mmol/L 5 - 15 mmol/L [facility] Calcium [Mass/Vol] 9.0 mg/dL 8.5 - 10. 5 mg/dL [facility] Chloride [Moles/Vol] 108 mmol/L 98 - 10 9 mmol/L [facility] CO2 [Moles/Vol] 20 mmol/L Low 22 - 32 mmol/L [facility] Creatinine [Mass/Vol] 0.83 mg/dL 0.60 - 1.30 mg/dL [facility] eGFR (CKD-EPI)non-race dependent - PINF [facility] Glucose [Mass/Vol] 74 mg/dL 65 - 99 mg/dL [facility] Interpretation and review of laboratory results Abnormal [facility] Potassium [Moles/Vol] 5.0 mmol/L 3.5 - 5.0 mmol/L [facility] Sodium [Moles/Vol] 137 mmol/L 134 - 146 mmol/L [facility] Urea nitrogen [Mass/Vol] 20 mg/dL 5 - 27 mg/dL [facility] CBC AND AUTO DIFFon 04-20-19 24 ABSOLUTE BASOPHIL 0.1 X10E9/L Normal 0.0-0.2 [facility] Comment on above: Performed By: #### C BCA, BMP, 06359-4, 7-1, 00359-6, FEPR, THYR, 2276-4, 2284-8, 2131-11 #### [facility] ([id number]) [address], [address] [place] [address] ABSOLUTE NEUTROPHIL 4.6 X10E9/L Normal 1.5-6.6 [facility] Comment on above: Performed By: #### C BCA, BMP, 16393-7, 2776-1, 84160-6, FEPR, THYR, 2276-4, 2284-8, 2131-11 #### [facility] ([id number]) [address], [address] [place] [address] Basophils/100 WBC (Bld) 1.0 % Normal [facility] Comment on above: Performed By: #### C BCA, BMP, 82754-2, 2776-, 94648-3, FEPR, THYR, 2276-4, 2283-8, 2131-11 #### [facility] ([id number]) [address], [address] [place] [address] Eosinophils (Bld) [#/Vol] 0.3 10*3/uL Normal 0.0-0.4 [facility] Comment on above: Performed By: #### C BCA, BMP, 99076-2, 2776-1, 51799-5, FEPR, THYR, 2276-4, 4-8, 2131-11 #### [facility] ([id number]) [address], [address] [place] [address] Eosinophils/100 WBC (Bld) 3.9 % Normal [facility] Comment on above: Performed By: #### C BCA, BMP, 60908-4, 2776-1, 13110-3, FEPR, THYR, 2276-4, 2284-8, 2131-11 #### [facility] ([id number]) [address], [address] [place] [address] Erythrocyte distribution width (RBC) [Ratio] 13.6 % Normal 11.5-15.0 [facility] Comment on above: Performed By: #### C BCA, BMP, 53510-6, 2776-1, 61770-8, FEPR, THYR, 2276-4, 2284-8, 2131-11 #### [facility] ([id number]) [address], [address] [place] [address] Hematocrit (Bld) [Volume fraction] 34.5 % Low 39-49 [facility] Comment on above: Performed By: #### C BCA, BMP, 79513-4, 2776-, 83850-6, FEPR, THYR, 2276-4, 2284-8, 2131-11 #### [facility] ([id number]) [address], [address] [place] [address] Hemoglobin (Bld) [Mass/Vol] 11.6 g/dL Low 13.0-17.0 [facility] Comment on above: Performed By: #### C BCA, BMP, 31782-7, 2776-, 14282-1, FEPR, THYR, 2276-4, 2284-8, 2131-11 #### [facility] ([id number]) [address], [address] [place] [address] Lymphocytes (Bld) [#/Vol] 1.8 10*3/uL Normal 1.0-3.5 [facility] Comment on above: Performed By: #### C BCA, BMP, 77262-7, 2776-, 07320-2, FEPR, THYR, 2276-4, 2284-8, 2131-11 #### [facility] ([id number]) [address], [address] [place] [address] Lymphocytes/100 WBC (Bld) 24.6 % Normal [facility] Comment on above: Performed By: #### C BCA, BMP, 00380-0, 7-1, 28623-1, FEPR, THYR, 2276-4, 2284-8, 2131-11 #### [facility] ([id number]) [address], [address] [place] [address] MCH (RBC) [Entitic mass] 33.6 pg Normal 27-34 [facility] Comment on above: Performed By: #### C BCA, BMP, 09941-5, 2776-1, 06663-3, FEPR, THYR, 2276-4, 2283-8, 2131-11 #### [facility] ([id number]) [address], [address] [place] [address] MCHC (RBC) [Mass/Vol] 33.7 g/dL Normal 32-36 [facility] Comment on above: Performed By: #### C BCA, BMP, 33705-2, 2776-1, 69013-7, FEPR, THYR, 2276-4, 2283-8, 2131-11 #### [facility] ([id number]) [address], [address] [place] [address] MCV (RBC) [Entitic vol] 100 fL Normal 80-100 [facility] Comment on above: Performed By: #### C BCA, BMP, 17592-2, 2776-1, 91499-0, FEPR, THYR, 2276-4, 2283-8, 2131-11 #### [facility] ([id number]) [address], [address] [place] [address] Monocytes (Bld) [#/Vol] 0.6 10*3/uL Normal 0-0.9 [facility] Comment on above: Performed By: #### C BCA, BMP, 19742-5, 7-1, 09965-8, FEPR, THYR, 2276-4, 2284-8, 2131-11 #### [facility] ([id number]) [address], [address] [place] [address] Monocytes/100 WBC (Bld) 8.5 % Normal [facility] Comment on above: Performed By: #### C BCA, BMP, 51912-8, 2777-1, 60825-1, FEPR, THYR, 2276-4, 2284-8, 2131-11 #### [facility] ([id number]) [address], [address] [place] [address] Neutrophils/100 WBC (Bld) 62.0 % Normal [facility] Comment on above: Performed By: #### C BCA, BMP, 28075-5, 7-1, 39987-8, FEPR, THYR, 2276-4, 2283-8, 2131-11 #### [facility] ([id number]) [address], [address] [place] [address] Platelet mean volume (Bld) [Entitic vol] 7.3 fL Normal 7-12 [facility] Comment on above: Performed By: #### C BCA, BMP, 70346-5, 7-1, 67960-4, FEPR, THYR, 2276-4, 2283-8, 2131-11 #### [facility] ([id number]) [address], [address] [place] [address] Platelets (Bld) [#/Vol] 245 10*3/uL Normal 150-450 [facility] Comment on above: Performed By: #### C BCA, BMP, 10266-0, 7-1, 76613-0, FEPR, THYR, 2276-4, 2284-8, 2131-11 #### [facility] ([id number]) [address], [address] [place] [address] RBC COUNT 3.45 X10E12/L Low 4.10-5.70 [facility] Comment on above: Performed By: #### C BCA, BMP, 76773-4, 7-1, 12524-8, FEPR, THYR, 2276-4, 2284-8, 9 #### [facility] ([id number]) [address] [facility], [address] [place] [address] WBC (Bld) [#/Vol] 7.4 10*3/uL Normal 4.0-11.0 [facility] Comment on above: Performed By: #### C BCA, BMP, 79838-7, 2776-1, 30101-5, FEPR, THYR, 2276-4, 2284-8, 2131-11 #### [facility] ([id number]) [address] [facility], [address] [place] [address] CBC auto differentialon 04-05 Basophils (Bld) [#/Vol] 0.1 10*3/uL [facility] Basophils/100 WBC (Bld) 1.0 % [facility] Eosinophils (Bld) [#/Vol] 0.3 10*3/uL [facility] Eosinophils/100 WBC (Bld) 3.9 % [facility] Erythrocyte distribution width (RBC) [Ratio] 13.6 % 11.5 - 15.0 % [facility] Hematocrit (Bld) [Volume fraction] 34.5 % Low 39 - 49 % [facility] Hemoglobin (Bld) [Mass/Vol] 11.6 g/dL Low 13.0 - 17.0 g/dL [facility] Interpretation and review of laboratory results Abnormal [facility] Lymphocytes (Bld) [#/Vol] 1.8 10*3/uL [facility] Lymphocytes/100 WBC (Bld) 24.6 % [facility] MCH (RBC) [Entitic mass] 33.6 pg 27 - 34 pg [facility] MCHC (RBC) [Mass/Vol] 33.7 g/dL 32 - 3 6 g/dL [facility] MCV (RBC) [Entitic vol] 100 fL 80 - 100 fL [facility] Monocytes (Bld) [#/Vol] 0.6 10*3/uL [facility] Monocytes/100 WBC (Bld) 8.5 % [facility] Neutrophils (Bld) [#/Vol] 4.6 10*3/uL [facility] Neutrophils/100 WBC (Bld) 62.0 % [facility] Platelet mean volume (Bld) [Entitic vol] 7.3 fL 7 - 12 fL [facility] Platelets (Bld) [#/Vol] 245 10*3/uL [facility] RBC (Bld) [#/Vol] 3.45 10*6/uL Low [facility] WBC corrected for nucl RBC Auto (Bld) [#/Vol] 7.4 [facility] MAGNESIUMon 04-20-2023 Magnesium [Mass/Vol] 1.9 mg/dL Normal 1.8-2.6 [facility] Comment on above: Performed By: #### C BCA, BMP, 55998-1, 2776-1, 56232-0, FEPR, THYR, 6-4, 2283-8, 2131-11 #### [facility] ([id number]) [address] [facility], [address] [place] [address] Magnesiumon 04-20-2023 Magnesium [Mass/Vol] 1.9 mg/dL 1.8 - 2 .6 mg/dL [facility] No Panel Informationon 04-20 [facility] Acetone, (BetaHydroxybutyrat e, Ketone) quantitative, serumon 04-19-2023 Beta hydroxybutyrate [Moles/Vol] mmol/L 0.02 - 0.27 mmol/L [facility] BASIC METABOLIC PANLon 04-19 Anion gap [Moles/Vol] 7 mmol/L Normal 5-15 [facility] Comment on above: Performed By: #### C BCA, BMP, 89106-9, 7-1, 38557-0, FEPR, THYR, 6-4, 4-8, 2131-11 #### [facility] ([id number]) [address] [facility], [address] [place] [address] Calcium [Mass/Vol] 8.6 mg/dL Normal 8.5-10.5 [facility] Comment on above: Performed By: #### C BCA, BMP, 03557-0, 2777-1, 95946-8, FEPR, THYR, 2276-4, 2284-8, 9 #### [facility] ([id number]) [address], [address] [address] Chloride [Moles/Vol] 111 mmol/L High 98-109 [facility] Comment on above: Performed By: #### C BCA, BMP, 12412-9, 2777-1, 12358-6, FEPR, THYR, 2276-4, 2284-8, 2131-11 #### [facility] ([id number]) [address], [address] [address] CO2 [Moles/Vol] 22 mmol/L Normal 22-32 [facility] Comment on above: Performed By: #### C BCA, BMP, 64135-4, 2777-1, 11024-8, FEPR, THYR, 2276-4, 2284-8, 2131-11 #### [facility] ([id number]) [address], [address] [address] Creatinine [Mass/Vol] 0.71 mg/dL Normal 0.60-1.30 [facility] Comment on above: Result Comment: METH OD TRACEABLE TO IDMS STANDARD Performed By: #### C BCA, BMP, 19116-6, 2777-1, 04830-1, FEPR, THYR, 2276-4, 2284-8, 2131-11 #### [facility] ([id number]) [address], [facility] [address] [place] [address] eGFR (CKD-EPI) NON-RACE DEPENDENT >90 Normal >59 [facility] Comment on above: Result Comment: Reported eGFR is based on the CKD-EPI 2020 equation that does not use a race coefficient. Performed By: #### C BCA, BMP, 20936-9, 2777-1, 27402-9, FEPR, THYR, 2276-4, 2284-8, 2131-11 #### [facility] ([id number]) [address], [address] [place] [address] Glucose [Mass/Vol] 99 mg/dL Normal 65-99 [facility] Comment on above: Performed By: #### C BCA, BMP, 66622-3, 7-1, 74658-4, FEPR, THYR, 2276-4, 2284-8, 2131-11 #### [facility] ([id number]) [address], [address] [place] [address] Potassium [Moles/Vol] 4.6 mmol/L Normal 3.5-5.0 [facility] Comment on above: Performed By: #### C BCA, BMP, 41825-2, 2776-1, 84475-0, FEPR, THYR, 2276-4, 2284-8, 2131-11 #### [facility] ([id number]) [address], [address] [place] [address] Sodium [Moles/Vol] 140 mmol/L Normal 134-146 [facility] Comment on above: Performed By: #### C BCA, BMP, 68849-3, 2776-1, 98637-0, FEPR, THYR, 2276-4, 2284-8, 2131-11 #### [facility] ([id number]) [address], [address] [place] [address] Urea nitrogen [Mass/Vol] 17 mg/dL Normal 5-27 [facility] Comment on above: Performed By: #### C BCA, BMP, 57212-4, 7-1, 42431-8, FEPR, THYR, 2276-4, 2284-8, 2131-11 #### [facility] ([id number]) [address], [address] [place] [address] Anion gap [Moles/Vol] 6 mmol/L Normal 5-15 [facility] Comment on above: Performed By: #### C BCA, BMP, 63942-8, 7-1, 81204-0, FEPR, THYR, 2276-4, 2284-8, 9 #### [facility] ([id number]) [address], [address] [place] [address] Calcium [Mass/Vol] 8.6 mg/dL Normal 8.5-10.5 [facility] Comment on above: Performed By: #### C BCA, BMP, 15485-9, 7-1, 78352-3, FEPR, THYR, 2276-4, 2284-8, 2131-11 #### [facility] ([id number]) [address], [address] [place] [address] Chloride [Moles/Vol] 111 mmol/L High 98-109 [place] Comment on above: Performed By: #### C BCA, BMP, 91790-9, 7-1, 20966-3, FEPR, THYR, 2276-4, 2284-8, 2131-11 #### [facility] ([id number]) [address], [address] [place] [address] CO2 [Moles/Vol] 20 mmol/L Low 22-32 [facility] Comment on above: Performed By: #### C BCA, BMP, 20564-6, 7-1, 37614-6, FEPR, THYR, 2276-4, 2284-8, 2131-11 #### [facility] ([id number]) [address], [address] [place] [address] Creatinine [Mass/Vol] 0.70 mg/dL Normal 0.60-1.30 [facility] Comment on above: Result Comment: METH OD TRACEABLE TO IDMS STANDARD Performed By: #### C BCA, BMP, 21371-1, 2777-1, 27576-1, FEPR, THYR, 2276-4, 2284-8, 9 #### [facility] ([id number]) [address], [address] [place] [address] Glucose [Mass/Vol] 90 mg/dL Normal 65-99 [facility] Comment on above: Performed By: #### C BCA, BMP, 67589-2, 2777-1, 57801-5, FEPR, THYR, 2276-4, 2284-8, 2131-11 #### [facility] ([id number]) [address], [address] [place] [address] Potassium [Moles/Vol] 5.0 mmol/L Normal 3.5-5.0 [facility] Comment on above: Performed By: #### C BCA, BMP, 20672-6, 7-1, 71709-0, FEPR, THYR, 2276-4, 2284-8, 2131-11 #### [facility] ([id number]) [address], [address] [place] [address] Sodium [Moles/Vol] 137 mmol/L Normal 134-146 [facility] Comment on above: Performed By: #### C BCA, BMP, 44067-4, 7-1, 76796-4, FEPR, THYR, 2276-4, 2284-8, 2131-11 #### [facility] ([id number]) [address], [address] [place] [address] Urea nitrogen [Mass/Vol] 18 mg/dL Normal 5-27 [facility] Comment on above: Performed By: #### C BCA, BMP, 04972-7, 2777-1, 91600-0, FEPR, THYR, 2276-4, 2284-8, 2131-11 #### [facility] ([id number]) [address], [address] [place] [address] Basic Metabolic Panelon 04-05 Anion gap [Moles/Vol] 7 mmol/L 5 - 15 mmol/L [facility] Calcium [Mass/Vol] 8.6 mg/dL 8.5 - 10. 5 mg/dL [facility] Chloride [Moles/Vol] 111 mmol/L High 98 - 10 9 mmol/L [facility] CO2 [Moles/Vol] 22 mmol/L 22 - 32 mmol/L [facility] Creatinine [Mass/Vol] 0.71 mg/dL 0.60 - 1.30 mg/dL [facility] eGFR (CKD-EPI)non-race dependent - PINF [facility] Glucose [Mass/Vol] 99 mg/dL 65 - 99 mg/dL [facility] Interpretation and review of laboratory results Abnormal [facility] Potassium [Moles/Vol] 4.6 mmol/L 3.5 - 5.0 mmol/L [facility] Sodium [Moles/Vol] 140 mmol/L 134 - 146 mmol/L [facility] Urea nitrogen [Mass/Vol] 17 mg/dL 5 - 27 mg/dL [facility] eGFR (CKD-EPI)non-race dependent - PINF [facility] Beta hydroxybutyrate [Moles/ Vol]on 04-19-2023 BetaHydroxybutyrate <0.10 Normal 0.02-0.27 [facility] Comment on above: Performed By: #### C BCA, BMP, 78206-8, 2776-1, 37505-3, FEPR, THYR, 2275-, 2283-10, 2131-11 #### [facility] ([id number]) [address] [place] [address], [address] [place] [address] [facility] CBC AND AUTO DIFFon 04-19-19 24 ABSOLUTE BASOPHIL 0.0 X10E9/L Normal 0.0-0.2 [facility] Comment on above: Performed By: #### C BCA, BMP, 16983-5, 7-1, 64276-9, FEPR, THYR, 6-4, 2283-8, 2131-11 #### [facility] ([id number]) [address], [address] [place] [address] ABSOLUTE NEUTROPHIL 5.2 X10E9/L Normal 1.5-6.6 [facility] Comment on above: Performed By: #### C BCA, BMP, 38578-1, 7-1, 44456-4, FEPR, THYR, 2276-4, 2284-8, 2131-11 #### [facility] ([id number]) [address], [address] [place] [address] RBC COUNT 3.10 X10E12/L Low 4.10-5.70 [facility] Comment on above: Performed By: #### C BCA, BMP, 85898-7, 2776-, 27971-4, FEPR, THYR, 2276-4, 4-8, 2131-11 #### [facility] ([id number]) [address], [address] [place] [address] WBC (Bld) [#/Vol] 8.0 10*3/uL Normal 4.0-11.0 [facility] Comment on above: Performed By: #### C BCA, BMP, 66789-1, 2776-1, 17899-9, FEPR, THYR, 2276-4, 4-8, 2131-11 #### [facility] ([id number]) [address], [address] [place] [address] Basophils/100 WBC (Bld) 0.5 % Normal [facility] Comment on above: Performed By: #### C BCA, BMP, 35362-8, 2776-, 41277-5, FEPR, THYR, 2276-4, 2284-8, 2131-11 #### [facility] ([id number]) [address], [address] [place] [address] Eosinophils (Bld) [#/Vol] 0.4 10*3/uL Normal 0.0-0.4 [facility] Comment on above: Performed By: #### C BCA, BMP, 41692-8, 2777-1, 15390-3, FEPR, THYR, 2276-4, 2284-8, 2131-11 #### [facility] ([id number]) [address], [address] [place] [address] Eosinophils/100 WBC (Bld) 5.2 % Normal [facility] Comment on above: Performed By: #### C BCA, BMP, 55367-7, 7-1, 03171-6, FEPR, THYR, 2276-4, 2284-8, 2131-11 #### [facility] ([id number]) [address], [address] [place] [address] Erythrocyte distribution width (RBC) [Ratio] 13.7 % Normal 11.5-15.0 [facility] Comment on above: Performed By: #### C BCA, BMP, 63490-7, 2776-1, 43997-9, FEPR, THYR, 2276-4, 4-8, 2131-11 #### [facility] ([id number]) [address], [address] [place] [address] Hematocrit (Bld) [Volume fraction] 31.0 % Low 39-49 [facility] Comment on above: Performed By: #### C BCA, BMP, 19295-5, 7-1, 85213-4, FEPR, THYR, 2276-4, 2284-8, 2131-11 #### [facility] ([id number]) [address], [address] [place] [address] Hemoglobin (Bld) [Mass/Vol] 10.4 g/dL Low 13.0-17.0 [facility] Comment on above: Performed By: #### C BCA, BMP, 46093-7, 7-1, 72784-1, FEPR, THYR, 2276-4, 2284-8, 2131-11 #### [facility] ([id number]) [address], [address] [place] [address] Lymphocytes (Bld) [#/Vol] 1.7 10*3/uL Normal 1.0-3.5 [facility] Comment on above: Performed By: #### C BCA, BMP, 36813-6, 7-1, 38628-3, FEPR, THYR, 2276-4, 2284-8, 2131-11 #### [facility] ([id number]) [address], [address] [place] [address] Lymphocytes/100 WBC (Bld) 20.8 % Normal [facility] Comment on above: Performed By: #### C BCA, BMP, 76813-0, 2776-1, 09647-4, FEPR, THYR, 2276-4, 4-8, 2131-11 #### [facility] ([id number]) [address], [address] [place] [address] MCH (RBC) [Entitic mass] 33.5 pg Normal 27-34 [facility] Comment on above: Performed By: #### C BCA, BMP, 86103-6, 2776-1, 44621-9, FEPR, THYR, 2276-4, 2283-8, 2131-11 #### [facility] ([id number]) [address], [address] [place] [address] MCHC (RBC) [Mass/Vol] 33.5 g/dL Normal 32-36 [facility] Comment on above: Performed By: #### C BCA, BMP, 43814-5, 2776-1, 04475-2, FEPR, THYR, 2276-4, 2284-8, 2131-11 #### [facility] ([id number]) [address], [address] [place] [address] MCV (RBC) [Entitic vol] 100 fL Normal 80-100 [facility] Comment on above: Performed By: #### C BCA, BMP, 66111-9, 2777-1, 18162-4, FEPR, THYR, 2276-4, 2284-8, 9 #### [facility] ([id number]) [address], [address] [place] [address] Monocytes (Bld) [#/Vol] 0.7 10*3/uL Normal 0-0.9 [facility] Comment on above: Performed By: #### C BCA, BMP, 43630-4, 2777-1, 20737-3, FEPR, THYR, 2276-4, 2284-8, 2131-11 #### [facility] ([id number]) [address], [facility] [address] [place] [address] Monocytes/100 WBC (Bld) 8.7 % Normal [facility] Comment on above: Performed By: #### C BCA, BMP, 65396-2, 7-1, 27997-1, FEPR, THYR, 2276-4, 2284-8, 2131-11 #### [facility] ([id number]) [address], [address] [place] [address] Neutrophils/100 WBC (Bld) 64.8 % Normal [facility] Comment on above: Performed By: #### C BCA, BMP, 85316-1, 2777-1, 27322-0, FEPR, THYR, 2276-4, 2284-8, 2131-11 #### [facility] ([id number]) [address], [address] [place] [address] Platelet mean volume (Bld) [Entitic vol] 6.9 fL Low 7-12 [facility] Comment on above: Performed By: #### C BCA, BMP, 80947-7, 2777-1, 29924-1, FEPR, THYR, 2276-4, 2284-8, 2131-11 #### [facility] ([id number]) [address], [address] [place] [address] Platelets (Bld) [#/Vol] 232 10*3/uL Normal 150-450 [facility] Comment on above: Performed By: #### C SEAN, BMP, , 2776-, 61443-3, FEPR, THYR, 6-4, 2283-8, 2131-11 #### [facility] ([id number]) [address], [address] [place] [address] CBC auto differentialon 04-05 Basophils (Bld) [#/Vol] 0.0 10*3/uL [facility] Interpretation and review of laboratory results Abnormal [facility] Neutrophils (Bld) [#/Vol] 5.2 10*3/uL [facility] RBC (Bld) [#/Vol] 3.10 10*6/uL Low [facility] WBC corrected for nucl RBC Auto (Bld) [#/Vol] 8.0 [facility] Laboratory - Chemistry and C hemistry - challengeon 04-19-2023 Magnesium [Mass/Vol] 1.7 mg/dL Low 1.8-2.6 [place] Comment on above: Performed By: #### C SEAN, UMER, , 2776-03, , FEPR, THYR, 2275-4, 2283-10, 2131-11 #### [facility] ([id number]) [address], [address] [place] [address] Phosphate [Mass/Vol] 3.0 mg/dL Normal 2.4-4.9 [place] Comment on above: Result Comment: SPEC IMEN HEMOLYZED, RESULTS INCREASED SLIGHTLY HEMOLYZED Performed By: #### C SEAN, UMER, , 2776-03, , FEPR, THYR, 2275-, 2283-10, 2131-11 #### [facility] ([id number]) [address], [address] [place] [address] Lactate (P simon) [Moles/Vol]o n 04-19-2023 LACTATE W/REFLEX 0.6 mmol/L Normal 0.4-2.[address] [facility] Comment on above: Result Comment: Result did not trigger repeat Lactate, re-order if needed. Performed By: #### C BCA, BMP, 89870-3, 2777-1, 32251-7, FEPR, THYR, 2276-4, 2284-8, 2131-11 #### [facility] ([id number]) [address], [address] [place] [address] [facility] Lactate w/ Reflexon 04-19-19 Lactate (P simon) [Moles/Vol] 0.6 mmol/L 0.4 - 2.0 mmol/L [facility] No Panel Informationon 04-19 Interpretation and review of laboratory results Abnormal [facility] BASIC METABOLIC PANLon 04-18 Anion gap [Moles/Vol] 9 mmol/L Normal 5-15 [facility] Comment on above: Performed By: #### C BCA, BMP, 29982-3, 7-1, 59634-8, FEPR, THYR, 2276-4, 2284-8, 2131-11 #### [facility] ([id number]) [address], [address] [place] [address] Calcium [Mass/Vol] 8.5 mg/dL Normal 8.5-10.5 [facility] Comment on above: Performed By: #### C BCA, BMP, 40309-2, 7-1, 19418-8, FEPR, THYR, 2276-4, 2284-8, 2131-11 #### [facility] ([id number]) [address], [address] [place] [address] Chloride [Moles/Vol] 108 mmol/L Normal 98-109 [facility] Comment on above: Performed By: #### C BCA, BMP, 97153-9, 7-1, 35097-7, FEPR, THYR, 2276-4, 2284-8, 2131-11 #### [facility] ([id number]) [address], [address] [place] [address] CO2 [Moles/Vol] 26 mmol/L Normal 22-32 [facility] Comment on above: Performed By: #### C BCA, BMP, 62958-1, 2777-1, 64673-2, FEPR, THYR, 2276-4, 2284-8, 2131-11 #### [facility] ([id number]) [address], [address] [place] [address] Creatinine [Mass/Vol] 0.65 mg/dL Normal 0.60-1.30 [facility] Comment on above: Result Comment: METH OD TRACEABLE TO IDMS STANDARD Performed By: #### C BCA, BMP, 35564-4, 7-1, 62449-1, FEPR, THYR, 2276-4, 2283-8, 2131-11 #### [facility] ([id number]) [address], [address] [place] [address] eGFR (CKD-EPI) NON-RACE DEPENDENT >90 Normal >59 [facility] Comment on above: Result Comment: Reported eGFR is based on the CKD-EPI 2020 equation that does not use a race coefficient. Performed By: #### C BCA, BMP, 63913-0, 2777-1, 05497-3, FEPR, THYR, 2276-4, 2283-8, 2131-11 #### [facility] ([id number]) [address], [address] [place] [address] Glucose [Mass/Vol] 93 mg/dL Normal 65-99 [facility] Comment on above: Performed By: #### C BCA, BMP, 49503-4, 2777-1, 85753-7, FEPR, THYR, 2276-4, 2284-8, 2131-11 #### [facility] ([id number]) [address], [address] [place] [address] Potassium [Moles/Vol] 4.6 mmol/L Normal 3.5-5.0 [facility] Comment on above: Performed By: #### C BCA, BMP, 93466-7, 2777-1, 13276-7, FEPR, THYR, 2276-4, 2284-8, 2131-9 #### [facility] ([id number]) [address], [facility] [address] [place] [address] Sodium [Moles/Vol] 143 mmol/L Normal 134-146 [facility] Comment on above: Performed By: #### C BCA, BMP, 29123-8, 7-1, 71927-2, FEPR, THYR, 2276-4, 2284-8, 2131-9 #### [facility] ([id number]) [address], [address] [address] Urea nitrogen [Mass/Vol] 19 mg/dL Normal 5-27 [facility] Comment on above: Performed By: #### C BCA, BMP, 52256-4, 7-1, 22516-6, FEPR, THYR, 2276-4, 2284-8, 2131-9 #### [facility] ([id number]) [address], [address] [address] Basic Metabolic Panelon - Anion gap [Moles/Vol] 9 mmol/L 5 - 15 mmol/L [facility] Calcium [Mass/Vol] 8.5 mg/dL 8.5 - 10. 5 mg/dL [facility] Chloride [Moles/Vol] 108 mmol/L 98 - 10 9 mmol/L [facility] CO2 [Moles/Vol] 26 mmol/L 22 - 32 mmol/L [facility] Creatinine [Mass/Vol] 0.65 mg/dL 0.60 - 1.30 mg/dL [facility] eGFR (CKD-EPI)non-race dependent - PINF [facility] Glucose [Mass/Vol] 93 mg/dL 65 - 99 mg/dL [facility] Potassium [Moles/Vol] 4.6 mmol/L 3.5 - 5.0 mmol/L [facility] Sodium [Moles/Vol] 143 mmol/L 134 - 146 mmol/L [facility] Urea nitrogen [Mass/Vol] 19 mg/dL 5 - 27 mg/dL [facility] CBC AND AUTO DIFFon 04-18-19 24 ABSOLUTE BASOPHIL 0.0 X10E9/L Normal 0.0-0.2 [facility] Comment on above: Performed By: #### C BCA, BMP, 70701-4, 2776-1, 31217-5, FEPR, THYR, 2276-4, 2284-8, 2131-11 #### [facility] ([id number]) [address], [address] [place] [address] ABSOLUTE NEUTROPHIL 6.1 X10E9/L Normal 1.5-6.6 [facility] Comment on above: Performed By: #### C BCA, BMP, , 2776-, 15520-8, FEPR, THYR, 6-4, 2283-8, 2131-11 #### [facility] ([id number]) [address], [address] [place] [address] Basophils/100 WBC (Bld) 0.5 % Normal [facility] Comment on above: Performed By: #### C BCA, BMP, 69851-4, 2776-, 28064-2, FEPR, THYR, 6-4, 2283-8, 2131-11 #### [facility] ([id number]) [address], [address] [place] [address] Eosinophils (Bld) [#/Vol] 0.3 10*3/uL Normal 0.0-0.4 [facility] Comment on above: Performed By: #### C BCA, BMP, 37755-6, 2776-1, 68577-0, FEPR, THYR, 2276-4, 4-8, 2131-11 #### [facility] ([id number]) [address], [address] [place] [address] Eosinophils/100 WBC (Bld) 3.3 % Normal [facility] Comment on above: Performed By: #### C BCA, BMP, 41479-1, 7-1, 62778-7, FEPR, THYR, 2276-4, 2284-8, 2131-11 #### [facility] ([id number]) [address], [address] [place] [address] Erythrocyte distribution width (RBC) [Ratio] 13.5 % Normal 11.5-15.0 [facility] Comment on above: Performed By: #### C BCA, BMP, 03089-9, 2776-1, 60571-2, FEPR, THYR, 2276-4, 4-8, 2131-11 #### [facility] ([id number]) [address], [address] [place] [address] Hematocrit (Bld) [Volume fraction] 32.4 % Low 39-49 [facility] Comment on above: Performed By: #### C BCA, BMP, 58874-5, 2776-1, 22052-2, FEPR, THYR, 2276-4, 2283-8, 2131-11 #### [facility] ([id number]) [address], [address] [place] [address] Hemoglobin (Bld) [Mass/Vol] 10.9 g/dL Low 13.0-17.0 [facility] Comment on above: Performed By: #### C BCA, BMP, 78907-2, 2776-1, 30358-3, FEPR, THYR, 2276-4, 2284-8, 2131-11 #### [facility] ([id number]) [address], [address] [place] [address] Lymphocytes (Bld) [#/Vol] 1.6 10*3/uL Normal 1.0-3.5 [facility] Comment on above: Performed By: #### C BCA, BMP, 47794-0, 2777-1, 09084-0, FEPR, THYR, 2276-4, 2284-8, 2131-11 #### [facility] ([id number]) [address], [address] [place] [address] Lymphocytes/100 WBC (Bld) 17.6 % Normal [facility] Comment on above: Performed By: #### C BCA, BMP, 96081-6, 7-1, 24829-2, FEPR, THYR, 2276-4, 2284-8, 2131-11 #### [facility] ([id number]) [address], [address] [place] [address] MCH (RBC) [Entitic mass] 33.1 pg Normal 27-34 [facility] Comment on above: Performed By: #### C BCA, BMP, 92421-8, 2776-1, 24850-9, FEPR, THYR, 2276-4, 2283-8, 2131-11 #### [facility] ([id number]) [address], [address] [place] [address] MCHC (RBC) [Mass/Vol] 33.7 g/dL Normal 32-36 [facility] Comment on above: Performed By: #### C BCA, BMP, 25990-8, 2776-1, 71527-1, FEPR, THYR, 2276-4, 2284-8, 2131-11 #### [facility] ([id number]) [address], [address] [place] [address] MCV (RBC) [Entitic vol] 98 fL Normal 80-100 [facility] Comment on above: Performed By: #### C BCA, BMP, 94971-6, 2777-1, 82388-6, FEPR, THYR, 2276-4, 2284-8, 2131-11 #### [facility] ([id number]) [address], [address] [place] [address] Monocytes (Bld) [#/Vol] 1.1 10*3/uL High 0-0.9 [facility] Comment on above: Performed By: #### C BCA, BMP, 39275-6, 2777-1, 74187-7, FEPR, THYR, 2276-4, 2284-8, 2131-11 #### [facility] ([id number]) [address], [address] [place] [address] Monocytes/100 WBC (Bld) 11.6 % Normal [facility] Comment on above: Performed By: #### C BCA, BMP, 53924-1, 2777-1, 22729-2, FEPR, THYR, 2276-4, 2284-8, 2131-11 #### [facility] ([id number]) [address], [address] [place] [address] Neutrophils/100 WBC (Bld) 67.0 % Normal [facility] Comment on above: Performed By: #### C BCA, BMP, 23865-9, 2777-1, 61550-1, FEPR, THYR, 2276-4, 2284-8, 2131-11 #### [facility] ([id number]) [address], [address] [place] [address] Platelet mean volume (Bld) [Entitic vol] 7.3 fL Normal 7-12 [facility] Comment on above: Performed By: #### C BCA, BMP, 42327-1, 2777-1, 37363-5, FEPR, THYR, 2276-4, 2284-8, 2131-11 #### [facility] ([id number]) [address], [address] [place] [address] Platelets (Bld) [#/Vol] 251 10*3/uL Normal 150-450 [facility] Comment on above: Performed By: #### C BCA, BMP, 53668-7, 7-1, 20220-6, FEPR, THYR, 2276-4, 2284-8, 2131-11 #### [facility] ([id number]) [address] [facility], [address] [place] [address] RBC COUNT 3.31 X10E12/L Low 4.10-5.70 [facility] Comment on above: Performed By: #### C BCA, BMP, 30661-4, 2776-1, 48155-9, FEPR, THYR, 2276-4, 2284-8, 2131-11 #### [facility] ([id number]) [address] [facility], [address] [place] [address] WBC (Bld) [#/Vol] 9.0 10*3/uL Normal 4.0-11.0 [facility] Comment on above: Performed By: #### C BCA, BMP, , 2776-1, 80178-7, FEPR, THYR, 2276-4, 2284-8, 2131-11 #### [facility] ([id number]) [address] [facility], [address] [place] [address] CBC auto differentialon 04-05 Basophils (Bld) [#/Vol] 0.0 10*3/uL [facility] Basophils/100 WBC (Bld) 0.5 % [facility] Eosinophils (Bld) [#/Vol] 0.3 10*3/uL [facility] Eosinophils/100 WBC (Bld) 3.3 % [facility] Erythrocyte distribution width (RBC) [Ratio] 13.5 % 11.5 - 15.0 % [facility] Hematocrit (Bld) [Volume fraction] 32.4 % Low 39 - 49 % [facility] Hemoglobin (Bld) [Mass/Vol] 10.9 g/dL Low 13.0 - 17.0 g/dL [facility] Interpretation and review of laboratory results Abnormal [facility] Lymphocytes (Bld) [#/Vol] 1.6 10*3/uL [facility] Lymphocytes/100 WBC (Bld) 17.6 % [facility] MCH (RBC) [Entitic mass] 33.1 pg 27 - 34 pg [facility] MCHC (RBC) [Mass/Vol] 33.7 g/dL 32 - 3 6 g/dL [facility] MCV (RBC) [Entitic vol] 98 fL 80 - 100 fL [facility] Monocytes (Bld) [#/Vol] 1.1 10*3/uL High [facility] Monocytes/100 WBC (Bld) 11.6 % [facility] Neutrophils (Bld) [#/Vol] 6.1 10*3/uL [facility] Neutrophils/100 WBC (Bld) 67.0 % [facility] Platelet mean volume (Bld) [Entitic vol] 7.3 fL 7 - 12 fL [facility] Platelets (Bld) [#/Vol] 251 10*3/uL [facility] RBC (Bld) [#/Vol] 3.31 10*6/uL Low [facility] WBC corrected for nucl RBC Auto (Bld) [#/Vol] 9.0 [facility] Lacosamideon 04-18-2023 Reference Lab Test ID See Below [facility] MAGNESIUMon 04-18-2023 Magnesium [Mass/Vol] 2.2 mg/dL Normal 1.8-2.6 [facility] Comment on above: Performed By: #### C BCA, BMP, , 2776-, 13593-2, FEPR, THYR, 6-4, 4-8, 2131-11 #### [facility] ([id number]) [facility], [address] [place] [address] Magnesium [Mass/Vol] 1.7 mg/dL Low 1.8-2.6 [facility] Comment on above: Performed By: #### C BCA, BMP, 14857-4, 2776-, 10977-3, FEPR, THYR, 2276-4, 2284-8, 2131-11 #### [facility] ([id number]) [address], [address] [place] [address] Magnesiumon 04-18-2023 Magnesium [Mass/Vol] 2.2 mg/dL 1.8 - 2 .6 mg/dL [facility] Magnesium [Mass/Vol] 1.7 mg/dL Low 1.8 - 2 .6 mg/dL [facility] Magnesium [Mass/Vol]on 04-18 Interpretation and review of laboratory results Abnormal [facility] No Panel Informationon 04-18 [facility] PHOSPHORUSon 04-18-2023 Phosphate [Mass/Vol] 2.2 mg/dL Low 2.4-4.9 [facility] Comment on above: Performed By: #### C BCA, BMP, 71053-3, 7-1, 64501-3, FEPR, THYR, 2275-4, 2283-10, 2131-11 #### [facility] ([id number]) [address], [address] [place] [address] Phosphate [Mass/Vol]on 04-18 Interpretation and review of laboratory results Abnormal [facility] Phosphoruson 04-18-2023 Phosphate [Mass/Vol] 2.2 mg/dL Low 2.4 - 4 .9 mg/dL [facility] Reference Lab Test IDon 04-05 [facility] BASIC METABOLIC PANLon 04-17 Anion gap [Moles/Vol] 8 mmol/L Normal 5-15 [facility] Comment on above: Performed By: #### C BCA, BMP, 51774-0, 7-1, 91157-3, FEPR, THYR, 6-4, 2283-, 2131-11 #### [facility] ([id number]) [address], [address] [place] [address] Calcium [Mass/Vol] 8.3 mg/dL Low 8.5-10.5 [facility] Comment on above: Performed By: #### C BCA, BMP, 35916-7, 2777-1, 68690-1, FEPR, THYR, 2276-4, 2284-8, 2131-11 #### [facility] ([id number]) [address], [address] [place] [address] Chloride [Moles/Vol] 111 mmol/L High 98-109 [place] Comment on above: Performed By: #### C BCA, BMP, 94156-3, 2777-1, 40800-7, FEPR, THYR, 2276-4, 2284-8, 2131-11 #### [facility] ([id number]) [address] [facility], [address] [place] [address] CO2 [Moles/Vol] 24 mmol/L Normal 22-32 [facility] Comment on above: Performed By: #### C BCA, BMP, 92944-1, 2777-1, 35027-7, FEPR, THYR, 2276-4, 2284-8, 2131-11 #### [facility] ([id number]) [address] [facility], [address] [place] [address] Creatinine [Mass/Vol] 0.64 mg/dL Normal 0.60-1.30 [facility] Comment on above: Result Comment: METH OD TRACEABLE TO IDMS STANDARD Performed By: #### C BCA, BMP, 95165-9, 2777-1, 74715-9, FEPR, THYR, 2276-4, 2284-8, 2131-11 #### [facility] ([id number]) [address], [address] [place] [address] Glucose [Mass/Vol] 99 mg/dL Normal 65-99 [facility] Comment on above: Performed By: #### C BCA, BMP, 06579-8, 2777-1, 49982-4, FEPR, THYR, 2276-4, 2284-8, 9 #### [facility] ([id number]) [address], [address] [place] [address] Potassium [Moles/Vol] 4.6 mmol/L Normal 3.5-5.0 [facility] Comment on above: Performed By: #### C BCA, BMP, 21020-3, 2777-1, 03920-6, FEPR, THYR, 2276-4, 2284-8, 9 #### [facility] ([id number]) [address], [address] [address] Sodium [Moles/Vol] 143 mmol/L Normal 134-146 [facility] Comment on above: Performed By: #### C BCA, BMP, 58537-7, 7-1, 53525-1, FEPR, THYR, 2276-4, 2284-8, 2131-11 #### [facility] ([id number]) [address] [address] Urea nitrogen [Mass/Vol] 17 mg/dL Normal 5-27 [facility] Comment on above: Performed By: #### C BCA, BMP, 37368-5, 2777-1, 99850-8, FEPR, THYR, 2276-4, 2284-8, 2131-11 #### [facility] ([id number]) [address] [address] eGFR (CKD-EPI) NON-RACE DEPENDENT >90 Normal >59 [facility] Comment on above: Result Comment: Reported eGFR is based on the CKD-EPI 2020 equation that does not use a race coefficient. Performed By: #### C BCA, BMP, 59735-7, 2777-1, 00359-0, FEPR, THYR, 2276-4, 2284-8, 2131-11 #### [facility] ([id number]) [address] [address] Basic Metabolic Panelon 04-05 eGFR (CKD-EPI)non-race dependent - PINF [facility] CBC AND AUTO DIFFon 02-13-20 24 ABSOLUTE BASOPHIL 0.0 X10E9/L Normal 0.0-0.2 [facility] Comment on above: Performed By: #### C BCA, BMP, 33533-6, 2776-, 00068-9, FEPR, THYR, 2276-4, 4-8, 2131-11 #### [facility] ([id number]) [address], [address] [place] [address] ABSOLUTE NEUTROPHIL 6.6 X10E9/L Normal 1.5-6.6 [facility] Comment on above: Performed By: #### C BCA, BMP, 05587-2, 2776-, 83828-7, FEPR, THYR, 6-4, 2283-8, 2131-11 #### [facility] ([id number]) [address], [address] [place] [address] RBC COUNT 3.29 X10E12/L Low 4.10-5.70 [facility] Comment on above: Performed By: #### C BCA, BMP, 09462-9, 2776-, 74391-2, FEPR, THYR, 6-4, 2283-8, 2131-11 #### [facility] ([id number]) [address], [address] [place] [address] WBC (Bld) [#/Vol] 9.0 10*3/uL Normal 4.0-11.0 [facility] Comment on above: Performed By: #### C BCA, BMP, 91223-6, 2776-, 95116-2, FEPR, THYR, 6-4, 2283-8, 2131-11 #### [facility] ([id number]) [address], [address] [place] [address] Basophils/100 WBC (Bld) 0.5 % Normal [facility] Comment on above: Performed By: #### C BCA, BMP, 54230-5, 2776-, 79273-0, FEPR, THYR, 2276-4, 2284-8, 2131-11 #### [facility] ([id number]) [address], [address] [place] [address] Eosinophils (Bld) [#/Vol] 0.3 10*3/uL Normal 0.0-0.4 [facility] Comment on above: Performed By: #### C BCA, BMP, 45191-2, 2777-1, 24510-6, FEPR, THYR, 2276-4, 2284-8, 2131-11 #### [facility] ([id number]) [address], [facility] [address] [place] [address] Eosinophils/100 WBC (Bld) 3.3 % Normal [facility] Comment on above: Performed By: #### C BCA, BMP, 21566-2, 7-1, 82418-0, FEPR, THYR, 2276-4, 2284-8, 2131-11 #### [facility] ([id number]) [address], [address] [place] [address] Erythrocyte distribution width (RBC) [Ratio] 13.2 % Normal 11.5-15.0 [facility] Comment on above: Performed By: #### C BCA, BMP, 47012-6, 2777-1, 45596-0, FEPR, THYR, 2276-4, 2284-8, 2131-11 #### [facility] ([id number]) [address], [address] [place] [address] Hematocrit (Bld) [Volume fraction] 32.5 % Low 39-49 [facility] Comment on above: Performed By: #### C BCA, BMP, 75453-9, 2777-1, 55244-6, FEPR, THYR, 2276-4, 2284-8, 2131-11 #### [facility] ([id number]) [address], [address] [place] [address] Hemoglobin (Bld) [Mass/Vol] 11.0 g/dL Low 13.0-17.0 [facility] Comment on above: Performed By: #### C BCA, BMP, 24315-0, 7-1, 05903-8, FEPR, THYR, 2276-4, 2284-8, 2131-11 #### [facility] ([id number]) [address], [address] [place] [address] Lymphocytes (Bld) [#/Vol] 1.2 10*3/uL Normal 1.0-3.5 [facility] Comment on above: Performed By: #### C BCA, BMP, 49182-9, 7-1, 02205-4, FEPR, THYR, 2276-4, 2284-8, 2131-11 #### [facility] ([id number]) [address], [address] [place] [address] Lymphocytes/100 WBC (Bld) 13.7 % Normal [facility] Comment on above: Performed By: #### C BCA, BMP, 01360-7, 2776-1, 56751-6, FEPR, THYR, 2276-4, 2283-8, 2131-11 #### [facility] ([id number]) [address], [address] [place] [address] MCH (RBC) [Entitic mass] 33.5 pg Normal 27-34 [facility] Comment on above: Performed By: #### C BCA, BMP, 69519-1, 2776-1, 29653-0, FEPR, THYR, 2276-4, 2284-8, 2131-11 #### [facility] ([id number]) [address], [address] [place] [address] MCHC (RBC) [Mass/Vol] 34.0 g/dL Normal 32-36 [facility] Comment on above: Performed By: #### C BCA, BMP, 74957-2, 2776-1, 76345-0, FEPR, THYR, 2276-4, 2284-8, 2131-11 #### [facility] ([id number]) [address], [address] [place] [address] MCV (RBC) [Entitic vol] 99 fL Normal 80-100 [facility] Comment on above: Performed By: #### C BCA, BMP, 69416-4, 2777-1, 76222-7, FEPR, THYR, 2276-4, 4-8, 2131-11 #### [facility] ([id number]) [address], [address] [place] [address] Monocytes (Bld) [#/Vol] 0.8 10*3/uL Normal 0-0.9 [facility] Comment on above: Performed By: #### C BCA, BMP, 97235-8, 7-1, 26866-4, FEPR, THYR, 6-4, 2283-8, 2131-11 #### [facility] ([id number]) [address], [address] [place] [address] Monocytes/100 WBC (Bld) 9.1 % Normal [facility] Comment on above: Performed By: #### C BCA, BMP, 26709-2, 7-1, 37643-6, FEPR, THYR, 6-4, 2283-8, 2131-11 #### [facility] ([id number]) [address], [address] [place] [address] Neutrophils/100 WBC (Bld) 73.4 % Normal [facility] Comment on above: Performed By: #### C BCA, BMP, 61247-3, 2777-1, 52511-7, FEPR, THYR, 6-4, 2283-8, 2131-11 #### [facility] ([id number]) [address], [address] [place] [address] Platelet mean volume (Bld) [Entitic vol] 7.7 fL Normal 7-12 [facility] Comment on above: Performed By: #### C BCA, BMP, , 2776-1, 15745-8, FEPR, THYR, 2276-4, 2284-8, 2131-11 #### [facility] ([id number]) [address], [address] [place] [address] Platelets (Bld) [#/Vol] 232 10*3/uL Normal 150-450 [facility] Comment on above: Performed By: #### C BCA, BMP, , 2776-, 68401-7, FEPR, THYR, 2276-4, 2283-8, 2131-11 #### [facility] ([id number]) [address], [address] [place] [address] CBC auto differentialon 04-05 Basophils (Bld) [#/Vol] 0.0 10*3/uL [facility] Interpretation and review of laboratory results Abnormal [facility] Neutrophils (Bld) [#/Vol] 6.6 10*3/uL [facility] RBC (Bld) [#/Vol] 3.29 10*6/uL Low [facility] WBC corrected for nucl RBC Auto (Bld) [#/Vol] 9.0 [facility] Laboratory - Chemistry and C hemistry - challengeon 04-17-2023 Magnesium [Mass/Vol] 1.8 mg/dL Normal 1.8-2.6 [place] Comment on above: Performed By: #### C BCA, BMP, , 2776-, 47569-0, FEPR, THYR, 2276-4, 2283-8, 2131-11 #### [facility] ([id number]) [address], [address] [place] [address] Phosphate [Mass/Vol] 1.6 mg/dL Low 2.4-4.9 [place] Comment on above: Performed By: #### C BCA, BMP, , 2776-, 31498-9, FEPR, THYR, 2276-4, 2284-8, 2131-11 #### [facility] ([id number]) [address], [address] [place] [address] MAGNESIUMon 04-17-2023 Magnesium [Mass/Vol] 2.0 mg/dL Normal 1.8-2.6 [facility] Comment on above: Performed By: #### C BCA, BMP, 94188-4, 2776-1, 74540-6, FEPR, THYR, 2276-4, 2284-8, 2131-11 #### [facility] ([id number]) [address], [address] [place] [address] Magnesiumon 04-17-2023 Magnesium [Mass/Vol] 2.0 mg/dL 1.8 - 2 .6 mg/dL [facility] No Panel Informationon 04-17 [facility] Interpretation and review of laboratory results Abnormal [facility] PHOSPHORUSon 04-17-2023 Phosphate [Mass/Vol] 2.0 mg/dL Low 2.4-4.9 [facility] Comment on above: Result Comment: SPEC IMEN HEMOLYZED, RESULTS INCREASED MODERATELY HEMOLYZED Performed By: #### C BCA, BMP, , 2776-1, 84445-2, FEPR, THYR, 2276-4, 2284-8, 2131-11 #### [facility] ([id number]) [address], [address] [place] [address] Phosphate [Mass/Vol]on 04-17 Interpretation and review of laboratory results Abnormal [facility] [facility]-17-2023 Phosphate [Mass/Vol] 2.0 mg/dL Low 2.4 - 4 .9 mg/dL [facility] BASIC METABOLIC PANLon 04-16 Anion gap [Moles/Vol] 7 mmol/L Normal 5-15 [facility] Comment on above: Performed By: #### C BCA, BMP, 69648-0, 2776-1, 62885-0, FEPR, THYR, 2276-4, 2284-8, 2131-11 #### [facility] ([id number]) [address], [address] [place] [address] Calcium [Mass/Vol] 7.8 mg/dL Low 8.5-10.5 [facility] Comment on above: Performed By: #### C BCA, BMP, 86296-6, 2777-1, 75270-4, FEPR, THYR, 2276-4, 2284-8, 2131-11 #### [facility] ([id number]) [address], [address] [place] [address] Chloride [Moles/Vol] 111 mmol/L High 98-109 [facility] Comment on above: Performed By: #### C BCA, BMP, 89945-2, 7-1, 01399-3, FEPR, THYR, 2276-4, 2284-8, 2131-11 #### [facility] ([id number]) [address], [address] [place] [address] CO2 [Moles/Vol] 28 mmol/L Normal 22-32 [facility] Comment on above: Performed By: #### C BCA, BMP, 88490-7, 7-1, 78874-3, FEPR, THYR, 2276-4, 2284-8, 2131-11 #### [facility] ([id number]) [address], [address] [place] [address] Creatinine [Mass/Vol] 0.60 mg/dL Normal 0.60-1.30 [facility] Comment on above: Result Comment: METH OD TRACEABLE TO IDMS STANDARD Performed By: #### C BCA, BMP, 61009-3, 2777-1, 03107-2, FEPR, THYR, 2276-4, 2284-8, 9 #### [facility] ([id number]) [address], [address] [place] [address] eGFR (CKD-EPI) NON-RACE DEPENDENT >90 Normal >59 [facility] Comment on above: Result Comment: Reported eGFR is based on the CKD-EPI 2020 equation that does not use a race coefficient. Performed By: #### C BCA, BMP, 87303-1, 7-1, 67506-2, FEPR, THYR, 2276-4, 2284-8, 2131-11 #### [facility] ([id number]) [address], [address] [place] [address] Glucose [Mass/Vol] 106 mg/dL High 65-99 [facility] Comment on above: Performed By: #### C BCA, BMP, 02328-9, 2776-, 07191-8, FEPR, THYR, 2276-4, 2284-8, 2131-11 #### [facility] ([id number]) [address], [address] [place] [address] Potassium [Moles/Vol] 4.5 mmol/L Normal 3.5-5.0 [facility] Comment on above: Performed By: #### C BCA, BMP, 22880-2, 2776-, 17646-6, FEPR, THYR, 2276-4, 228-8, 2131-11 #### [facility] ([id number]) [address], [address] [place] [address] Sodium [Moles/Vol] 146 mmol/L Normal 134-146 [facility] Comment on above: Performed By: #### C BCA, BMP, 62800-5, 2776-1, 56582-9, FEPR, THYR, 2276-4, 2284-8, 2131-11 #### [facility] ([id number]) [address], [address] [place] [address] Urea nitrogen [Mass/Vol] 17 mg/dL Normal 5-27 [facility] Comment on above: Performed By: #### C BCA, BMP, 81426-5, 2776-, 57668-9, FEPR, THYR, 2276-4, 2284-8, 2131-11 #### [facility] ([id number]) [address] [facility], [address] [place] [address] Basic Metabolic Panelon 04-05 Anion gap [Moles/Vol] 7 mmol/L 5 - 15 mmol/L [facility] Calcium [Mass/Vol] 7.8 mg/dL Low 8.5 - 10. 5 mg/dL [facility] Chloride [Moles/Vol] 111 mmol/L High 98 - 10 9 mmol/L [facility] CO2 [Moles/Vol] 28 mmol/L 22 - 32 mmol/L [facility] Creatinine [Mass/Vol] 0.60 mg/dL 0.60 - 1.30 mg/dL [facility] eGFR (CKD-EPI)non-race dependent - PINF [facility] Glucose [Mass/Vol] 106 mg/dL High 65 - 99 mg/dL [facility] Interpretation and review of laboratory results Abnormal [facility] Potassium [Moles/Vol] 4.5 mmol/L 3.5 - 5.0 mmol/L [facility] Sodium [Moles/Vol] 146 mmol/L 134 - 146 mmol/L [facility] Urea nitrogen [Mass/Vol] 17 mg/dL 5 - 27 mg/dL [facility] CBC AND AUTO DIFFon 04-16-19 24 ABSOLUTE BASOPHIL 0.0 X10E9/L Normal 0.0-0.2 [facility] Comment on above: Performed By: #### C BCA, BMP, , 2776-03, 25934-2, FEPR, THYR, 2276-4, 2284-8, 2131-11 #### [facility] ([id number]) [address] [facility], [address] [place] [address] ABSOLUTE NEUTROPHIL 5.4 X10E9/L Normal 1.5-6.6 [facility] Comment on above: Performed By: #### C BCA, BMP, , 2777-1, 62694-3, FEPR, THYR, 2276-4, 2284-8, 2131-11 #### [facility] ([id number]) [address], [address] [place] [address] Basophils/100 WBC (Bld) 0.5 % Normal [facility] Comment on above: Performed By: #### C BCA, BMP, 93487-9, 7-1, 80491-7, FEPR, THYR, 2276-4, 2284-8, 2131-11 #### [facility] ([id number]) [address] [address] [place] [address] Eosinophils (Bld) [#/Vol] 0.3 10*3/uL Normal 0.0-0.4 [facility] Comment on above: Performed By: #### C BCA, BMP, 10184-9, 2776-1, 56656-6, FEPR, THYR, 2276-4, 2284-8, 2131-11 #### [facility] ([id number]) [address] [address] [place] [address] Eosinophils/100 WBC (Bld) 4.2 % Normal [facility] Comment on above: Performed By: #### C BCA, BMP, 08824-9, 7-1, 16726-6, FEPR, THYR, 2276-4, 2284-8, 2131-11 #### [facility] ([id number]) [address], [facility] [address] [place] [address] Erythrocyte distribution width (RBC) [Ratio] 13.5 % Normal 11.5-15.0 [facility] Comment on above: Performed By: #### C BCA, BMP, 13380-5, 7-1, 88005-9, FEPR, THYR, 2276-4, 2284-8, 2131-11 #### [facility] ([id number]) [address], [address] [place] [address] Hematocrit (Bld) [Volume fraction] 31.9 % Low 39-49 [facility] Comment on above: Performed By: #### C BCA, BMP, 39576-1, 2776-, 35475-8, FEPR, THYR, 2276-4, 2284-8, 2131-11 #### [facility] ([id number]) [address], [address] [place] [address] Hemoglobin (Bld) [Mass/Vol] 10.9 g/dL Low 13.0-17.0 [facility] Comment on above: Performed By: #### C BCA, BMP, , 2776-, 13106-7, FEPR, THYR, 2276-4, 2284-8, 2131-11 #### [facility] ([id number]) [address], [address] [place] [address] Lymphocytes (Bld) [#/Vol] 1.2 10*3/uL Normal 1.0-3.5 [facility] Comment on above: Performed By: #### C BCA, BMP, , 2776-03, 55612-0, FEPR, THYR, 2276-4, 2283-8, 2131-11 #### [facility] ([id number]) [address], [address] [place] [address] Lymphocytes/100 WBC (Bld) 15.4 % Normal [facility] Comment on above: Performed By: #### C BCA, BMP, , 2776-03, 94767-5, FEPR, THYR, 2276-4, 4-8, 2131-11 #### [facility] ([id number]) [address], [address] [place] [address] MCH (RBC) [Entitic mass] 33.1 pg Normal 27-34 [facility] Comment on above: Performed By: #### C BCA, BMP, 97290-6, 2776-, 40053-6, FEPR, THYR, 2276-4, 4-8, 2131-11 #### [facility] ([id number]) [address], [address] [place] [address] MCHC (RBC) [Mass/Vol] 34.0 g/dL Normal 32-36 [facility] Comment on above: Performed By: #### C BCA, BMP, 65335-8, 7-1, 04997-2, FEPR, THYR, 2276-4, 2284-8, 2131-11 #### [facility] ([id number]) [address], [address] [place] [address] MCV (RBC) [Entitic vol] 97 fL Normal 80-100 [facility] Comment on above: Performed By: #### C BCA, BMP, 28206-9, 2776-1, 37242-2, FEPR, THYR, 2276-4, 2283-8, 2131-11 #### [facility] ([id number]) [address], [address] [place] [address] Monocytes (Bld) [#/Vol] 0.6 10*3/uL Normal 0-0.9 [facility] Comment on above: Performed By: #### C BCA, BMP, 80759-4, 2776-1, 46571-4, FEPR, THYR, 2276-4, 2283-8, 2131-11 #### [facility] ([id number]) [address], [address] [place] [address] Monocytes/100 WBC (Bld) 8.4 % Normal [facility] Comment on above: Performed By: #### C BCA, BMP, 41983-3, 2776-1, 40711-4, FEPR, THYR, 2276-4, 4-8, 2131-11 #### [facility] ([id number]) [address], [address] [place] [address] Neutrophils/100 WBC (Bld) 71.5 % Normal [facility] Comment on above: Performed By: #### C BCA, BMP, 65448-6, 2777-1, 42029-3, FEPR, THYR, 2276-4, 2284-8, 2131-11 #### [facility] ([id number]) [address], [address] [place] [address] Platelet mean volume (Bld) [Entitic vol] 7.6 fL Normal 7-12 [facility] Comment on above: Performed By: #### C BCA, BMP, 91966-8, 2777-1, 95056-5, FEPR, THYR, 2276-4, 2284-8, 2131-11 #### [facility] ([id number]) [address], [address] [place] [address] Platelets (Bld) [#/Vol] 173 10*3/uL Normal 150-450 [facility] Comment on above: Performed By: #### C BCA, BMP, 35918-5, 7-1, 43456-4, FEPR, THYR, 2276-4, 2284-8, 2131-11 #### [facility] ([id number]) [address], [address] [place] [address] RBC COUNT 3.28 X10E12/L Low 4.10-5.70 [facility] Comment on above: Performed By: #### C BCA, BMP, 87419-5, 2777-1, 93994-6, FEPR, THYR, 2276-4, 2284-8, 2131-11 #### [facility] ([id number]) [address], [address] [place] [address] WBC (Bld) [#/Vol] 7.5 10*3/uL Normal 4.0-11.0 [facility] Comment on above: Performed By: #### C BCA, BMP, 19470-5, 7-1, 69848-0, FEPR, THYR, 2276-4, 2284-8, 2132-9 #### [facility] ([id number]) [address] [facility], [address] [place] [address] CBC auto differentialon 04-05 Basophils (Bld) [#/Vol] 0.0 10*3/uL [facility] Basophils/100 WBC (Bld) 0.5 % [facility] Eosinophils (Bld) [#/Vol] 0.3 10*3/uL [facility] Eosinophils/100 WBC (Bld) 4.2 % [facility] Erythrocyte distribution width (RBC) [Ratio] 13.5 % 11.5 - 15.0 % [facility] Hematocrit (Bld) [Volume fraction] 31.9 % Low 39 - 49 % [facility] Hemoglobin (Bld) [Mass/Vol] 10.9 g/dL Low 13.0 - 17.0 g/dL [facility] Interpretation and review of laboratory results Abnormal [facility] Lymphocytes (Bld) [#/Vol] 1.2 10*3/uL [facility] Lymphocytes/100 WBC (Bld) 15.4 % [facility] MCH (RBC) [Entitic mass] 33.1 pg 27 - 34 pg [facility] MCHC (RBC) [Mass/Vol] 34.0 g/dL 32 - 3 6 g/dL [facility] MCV (RBC) [Entitic vol] 97 fL 80 - 100 fL [facility] Monocytes (Bld) [#/Vol] 0.6 10*3/uL [facility] Monocytes/100 WBC (Bld) 8.4 % [facility] Neutrophils (Bld) [#/Vol] 5.4 10*3/uL [facility] Neutrophils/100 WBC (Bld) 71.5 % [facility] Platelet mean volume (Bld) [Entitic vol] 7.6 fL 7 - 12 fL [facility] Platelets (Bld) [#/Vol] 173 10*3/uL [facility] RBC (Bld) [#/Vol] 3.28 10*6/uL Low [facility] WBC corrected for nucl RBC Auto (Bld) [#/Vol] 7.5 [facility] Calcium.ionized (Bld) [Mass/ Vol]on 04-16-2023 IONIZED CALCIUM 4.9 mg/dL Normal 4.5-5.3 [facility] Comment on above: Performed By: #### C BCA, BMP, 70259-9, 2777-1, 98572-6, FEPR, THYR, 2276-4, 2284-8, 2132-9 #### [facility] ([id number]) [address] [place] [address], [address] [place] [address] FL SWALLOW MOTILITY FUNCTION on 04-16-2023 FL [...] Silviano Nelson on 04/16/2023 10:52 AM Normal [facility] Ionized calciumon 04-16-2023 Calcium.ionized (Bld) [Mass/Vol] 4.9 mg/dL 4.5 - 5.3 mg/dL [facility] Ionized magnesiumon 04-16-19 24 Magnesium Ionized ISE (Bld) [Moles/Vol] 0.71 mmol/L 0.45 - 0.74 mmol/L [facility] Levetiracetam levelon 2023 levETIRAcetam [Mass/Vol] See Below [facility] MAGNESIUMon 04-16-2023 Magnesium [Mass/Vol] 1.8 mg/dL Normal 1.8-2.6 [facility] Comment on above: Performed By: #### C BCA, BMP, , 2776-1, 02571-1, FEPR, THYR, 2276-4, 2284-8, 2131-11 #### [facility] ([id number]) [address] [facility], [address] [place] [address] Magnesiumon 04-16-2023 Magnesium [Mass/Vol] 1.8 mg/dL 1.8 - 2 .6 mg/dL [facility] Magnesium Ionized ISE (Bld) [Moles/Vol]on 04-16-2023 Magnesium [Moles/Vol] 0.71 mmol/L Normal 0.45-0.74 [facility] Comment on above: Result Comment: NEW REFERENCE RANGE Performed By: #### C SEAN, BMP, , 2776-, 05147-6, FEPR, THYR, 2276-4, 2283-8, 2131-11 #### [facility] ([id number]) [address] [facility], [address] [place] [address] No Panel Informationon 04-16 [facility] PHOSPHORUSon 04-16-2023 Phosphate [Mass/Vol] mg/dL Critically low 2.4-4.9 [facility] Comment on above: Performed By: #### C BCA, BMP, , 2776-, 04711-2, FEPR, THYR, 2276-4, 2284-8, 2131-11 #### [facility] ([id number]) [facility], [address] [place] [address] Phosphate [Mass/Vol]on 04-16 Interpretation and review of laboratory results Abnormal [facility] Phosphoruson 04-16-2023 Phosphate [Mass/Vol] mg/dL Critically low 2.4 - 4.9 mg/dL [facility] RF videography Hypopharynx a nd Esophagus Viewson 04-16-2023 [facility] Radiology Study observation (narrative) [facility] Hypopharynx a nd Esophagus ViewsOrdered By: Silviano Nelson on 04-16-2023 [employer] Work Phone: Reference Lab Test IDon 04-05 Lacosamide See Below Normal [facility] Comment on above: Result Comment: NOTE TEST RESULT FLAG UNIT REF.RANGE ------- Lacosamide Test 3.9 ug/mL 2.2-19.8 Expected concentration of patients receiving 200-400 mg/day is 2.2-19.8 ug/mL for Lacosamide. This test was developed and its performance characteristics determined by [facility] ([facility]). It has not been cleared or approved by the FDA. [facility] is regulated under CLIA as qualified to perform high-complexity testing. This test is used for clinical purposes. It should not be regarded as investigational or for research. Desmethyllacosamide 1.4 ug/mL <2.6 Expected concentration of patients receiving 200-400 mg/day is up to 2.5 ug/mL for Desmethyllacosamide. This test was developed and its performance characteristics determined by [facility] ([facility] It has not been cleared or approved by the FDA. [facility] is regulated under CLIA as qualified to perform high-complexity testing. This test is used for clinical purposes. It should not be regarded as investigational or for research. Test Performed By: [facility] [address] [place] [address] Family Practitioner: Ferdinand Naidu III #[id number] levETIRAcetam [Mass/Vol]on 0 04-16-2023 [facility] BASIC METABOLIC PANLon 04-15 Anion gap [Moles/Vol] 6 mmol/L Normal 5-15 [facility] Comment on above: Performed By: #### C BCA, BMP, 20900-6, 2777-1, 73578-0, FEPR, THYR, 2276-4, 2284-8, 2131-11 #### [facility] ([id number]) [address], [address] [place] [address] Calcium [Mass/Vol] 7.7 mg/dL Low 8.5-10.5 [facility] Comment on above: Performed By: #### C BCA, BMP, 43508-8, 2777-1, 64879-4, FEPR, THYR, 2276-4, 2284-8, 2131-11 #### [facility] ([id number]) [address], [address] [place] [address] Chloride [Moles/Vol] 111 mmol/L High 98-109 [facility] Comment on above: Performed By: #### C BCA, BMP, 82293-9, 2777-1, 38803-3, FEPR, THYR, 2276-4, 2284-8, 2131-11 #### [facility] ([id number]) [address], [address] [place] [address] CO2 [Moles/Vol] 27 mmol/L Normal 22-32 [facility] Comment on above: Performed By: #### C BCA, BMP, 60412-8, 2777-1, 84728-6, FEPR, THYR, 2276-4, 2284-8, 2131-11 #### [facility] ([id number]) [address], [address] [place] [address] Creatinine [Mass/Vol] 0.67 mg/dL Normal 0.60-1.30 [facility] Comment on above: Result Comment: METH OD TRACEABLE TO IDMS STANDARD Performed By: #### C BCA, BMP, 54618-9, 2777-1, 38260-5, FEPR, THYR, 2276-4, 2284-8, 2131-11 #### [facility] ([id number]) [address], [address] [place] [address] eGFR (CKD-EPI) NON-RACE DEPENDENT >90 Normal >59 [facility] Comment on above: Result Comment: Reported eGFR is based on the CKD-EPI 2020 equation that does not use a race coefficient. Performed By: #### C BCA, BMP, 39142-3, 7-1, 29741-1, FEPR, THYR, 2276-4, 2284-8, 2131-11 #### [facility] ([id number]) [address], [address] [place] [address] Glucose [Mass/Vol] 124 mg/dL High 65-99 [facility] Comment on above: Performed By: #### C BCA, BMP, 09762-7, 2777-1, 27144-0, FEPR, THYR, 2276-4, 2284-8, 2131-11 #### [facility] ([id number]) [address], [address] [place] [address] Potassium [Moles/Vol] 4.1 mmol/L Normal 3.5-5.0 [facility] Comment on above: Performed By: #### C BCA, BMP, 39795-6, 2777-1, 82422-8, FEPR, THYR, 2276-4, 2284-8, 2131-11 #### [facility] ([id number]) [address], [address] [place] [address] Sodium [Moles/Vol] 144 mmol/L Normal 134-146 [facility] Comment on above: Performed By: #### C BCA, BMP, 56403-6, 2777-1, 20036-5, FEPR, THYR, 2276-4, 2284-8, 2131-11 #### [facility] ([id number]) [address], [address] [place] [address] Urea nitrogen [Mass/Vol] 11 mg/dL Normal 5-27 [facility] Comment on above: Performed By: #### C BCA, BMP, 22414-8, 2777-1, 57640-0, FEPR, THYR, 2276-4, 2284-8, 2131-11 #### [facility] ([id number]) [address], [facility] [address] [place] [address] Basic Metabolic Panelon 04-05 Anion gap [Moles/Vol] 6 mmol/L 5 - 15 mmol/L [facility] Calcium [Mass/Vol] 7.7 mg/dL Low 8.5 - 10. 5 mg/dL [facility] Chloride [Moles/Vol] 111 mmol/L High 98 - 10 9 mmol/L [facility] CO2 [Moles/Vol] 27 mmol/L 22 - 32 mmol/L [facility] Creatinine [Mass/Vol] 0.67 mg/dL 0.60 - 1.30 mg/dL [facility] eGFR (CKD-EPI)non-race dependent - PINF [facility] Glucose [Mass/Vol] 124 mg/dL High 65 - 99 mg/dL [facility] Potassium [Moles/Vol] 4.1 mmol/L 3.5 - 5.0 mmol/L [facility] Sodium [Moles/Vol] 144 mmol/L 134 - 146 mmol/L [facility] Urea nitrogen [Mass/Vol] 11 mg/dL 5 - 27 mg/dL [facility] CBC AND AUTO DIFFon 04-15-19 ABSOLUTE BASOPHIL 0.0 X10E9/L Normal 0.0-0.2 [facility] Comment on above: Performed By: #### C BCA, BMP, 36921-7, 7-1, 17335-5, FEPR, THYR, 2276-4, 2284-8, 2131-11 #### [facility] ([id number]) [address], [address] [place] [address] ABSOLUTE NEUTROPHIL 8.4 X10E9/L High 1.5-6.6 [facility] Comment on above: Performed By: #### C BCA, BMP, 64977-6, 2776-1, 74101-5, FEPR, THYR, 2276-4, 2284-8, 2131-11 #### [facility] ([id number]) [address], [address] [place] [address] Basophils/100 WBC (Bld) 0.3 % Normal [facility] Comment on above: Performed By: #### C BCA, BMP, 99275-2, 2776-1, 72134-8, FEPR, THYR, 2276-4, 2283-8, 2131-11 #### [facility] ([id number]) [address], [address] [place] [address] Eosinophils (Bld) [#/Vol] 0.2 10*3/uL Normal 0.0-0.4 [facility] Comment on above: Performed By: #### C BCA, BMP, 06167-0, 2776-1, 92079-7, FEPR, THYR, 2276-4, 4-8, 2131-11 #### [facility] ([id number]) [address], [address] [place] [address] Eosinophils/100 WBC (Bld) 1.6 % Normal [facility] Comment on above: Performed By: #### C BCA, BMP, 70499-8, 7-1, 37825-9, FEPR, THYR, 2276-4, 2284-8, 2131-11 #### [facility] ([id number]) [address], [address] [place] [address] Erythrocyte distribution width (RBC) [Ratio] 13.2 % Normal 11.5-15.0 [facility] Comment on above: Performed By: #### C BCA, BMP, 11393-3, 7-1, 97490-0, FEPR, THYR, 2276-4, 2284-8, 2131-11 #### [facility] ([id number]) [address], [address] [place] [address] Hematocrit (Bld) [Volume fraction] 30.8 % Low 39-49 [facility] Comment on above: Performed By: #### C BCA, BMP, 47691-4, 2776-, 02122-1, FEPR, THYR, 2276-4, 2284-8, 2131-11 #### [facility] ([id number]) [address], [address] [place] [address] Hemoglobin (Bld) [Mass/Vol] 10.7 g/dL Low 13.0-17.0 [facility] Comment on above: Performed By: #### C BCA, BMP, 56019-8, 2776-, 97745-2, FEPR, THYR, 2276-4, 4-8, 2131-11 #### [facility] ([id number]) [address], [address] [place] [address] Lymphocytes (Bld) [#/Vol] 1.2 10*3/uL Normal 1.0-3.5 [facility] Comment on above: Performed By: #### C BCA, BMP, 09264-4, 2776-, 49533-5, FEPR, THYR, 2276-4, 2284-8, 2131-11 #### [facility] ([id number]) [address], [address] [place] [address] Lymphocytes/100 WBC (Bld) 11.7 % Normal [facility] Comment on above: Performed By: #### C BCA, BMP, 46385-8, 2776-1, 92518-6, FEPR, THYR, 2276-4, 2283-8, 2131-11 #### [facility] ([id number]) [address], [address] [place] [address] MCH (RBC) [Entitic mass] 34.1 pg High 27-34 [facility] Comment on above: Performed By: #### C BCA, BMP, 43881-4, 2776-, 40741-3, FEPR, THYR, 2276-4, 2283-8, 2131-11 #### [facility] ([id number]) [address], [address] [place] [address] MCHC (RBC) [Mass/Vol] 34.6 g/dL Normal 32-36 [facility] Comment on above: Performed By: #### C BCA, BMP, 96698-2, 2776-, 87159-8, FEPR, THYR, 2275-4, 2283-8, 2131-11 #### [facility] ([id number]) [address], [address] [place] [address] MCV (RBC) [Entitic vol] 99 fL Normal 80-100 [facility] Comment on above: Performed By: #### C BCA, BMP, 02986-9, 2776-, 22840-5, FEPR, THYR, 2275-4, 2283-8, 2131-11 #### [facility] ([id number]) [address], [address] [place] [address] Monocytes (Bld) [#/Vol] 0.6 10*3/uL Normal 0-0.9 [facility] Comment on above: Performed By: #### C BCA, BMP, 48888-2, 2776-1, 38068-0, FEPR, THYR, 2276-4, 4-8, 2132-9 #### [facility] ([id number]) [address], [address] [place] [address] Monocytes/100 WBC (Bld) 6.1 % Normal [facility] Comment on above: Performed By: #### C BCA, BMP, 50421-1, 7-1, 23845-1, FEPR, THYR, 2276-4, 2284-8, 2131-11 #### [facility] ([id number]) [address], [address] [place] [address] Neutrophils/100 WBC (Bld) 80.3 % Normal [facility] Comment on above: Performed By: #### C BCA, BMP, 82378-1, 2776-1, 42409-2, FEPR, THYR, 2276-4, 4-8, 2131-11 #### [facility] ([id number]) [address], [address] [place] [address] Platelet mean volume (Bld) [Entitic vol] 7.4 fL Normal 7-12 [facility] Comment on above: Performed By: #### C BCA, BMP, 43307-0, 2776-1, 85867-3, FEPR, THYR, 2276-4, 2283-8, 2131-11 #### [facility] ([id number]) [address], [address] [place] [address] Platelets (Bld) [#/Vol] 140 10*3/uL Low 150-450 [facility] Comment on above: Performed By: #### C BCA, BMP, 58312-9, 7-1, 09467-5, FEPR, THYR, 2276-4, 2284-8, 2131-11 #### [facility] ([id number]) [address], [address] [place] [address] RBC COUNT 3.13 X10E12/L Low 4.10-5.70 [facility] Comment on above: Performed By: #### C BCA, BMP, 07012-1, 2777-1, 49695-0, FEPR, THYR, 2276-4, 2284-8, 2131-11 #### [facility] ([id number]) [address] [place] [address], [address] [place] [address] WBC (Bld) [#/Vol] 10.4 10*3/uL Normal 4.0-11.0 [facility] Comment on above: Performed By: #### C BCA, BMP, 45799-1, 7-1, 31512-5, FEPR, THYR, 2276-4, 2284-8, 2131-11 #### [facility] ([id number]) [address] [place] [address], [address] [place] [address] CBC auto differentialon 04-05 Basophils (Bld) [#/Vol] 0.0 10*3/uL [facility] Basophils/100 WBC (Bld) 0.3 % [facility] Eosinophils (Bld) [#/Vol] 0.2 10*3/uL [facility] Eosinophils/100 WBC (Bld) 1.6 % [facility] Erythrocyte distribution width (RBC) [Ratio] 13.2 % 11.5 - 15.0 % [facility] Hematocrit (Bld) [Volume fraction] 30.8 % Low 39 - 49 % [facility] Hemoglobin (Bld) [Mass/Vol] 10.7 g/dL Low 13.0 - 17.0 g/dL [facility] Interpretation and review of laboratory results Abnormal [facility] Lymphocytes (Bld) [#/Vol] 1.2 10*3/uL [facility] Lymphocytes/100 WBC (Bld) 11.7 % [facility] MCH (RBC) [Entitic mass] 34.1 pg High 27 - 34 pg [facility] MCHC (RBC) [Mass/Vol] 34.6 g/dL 32 - 3 6 g/dL [facility] MCV (RBC) [Entitic vol] 99 fL 80 - 100 fL [facility] Monocytes (Bld) [#/Vol] 0.6 10*3/uL [facility] Monocytes/100 WBC (Bld) 6.1 % [facility] Neutrophils (Bld) [#/Vol] 8.4 10*3/uL High [facility] Neutrophils/100 WBC (Bld) 80.3 % [facility] Platelet mean volume (Bld) [Entitic vol] 7.4 fL 7 - 12 fL [facility] Platelets (Bld) [#/Vol] 140 10*3/uL Low [facility] RBC (Bld) [#/Vol] 3.13 10*6/uL Low [facility] WBC corrected for nucl RBC Auto (Bld) [#/Vol] 10.4 [facility] MAGNESIUMon 04-15-2023 Magnesium [Mass/Vol] 2.1 mg/dL Normal 1.8-2.6 [facility] Comment on above: Performed By: #### C BCA, BMP, 12656-7, 7-1, 70972-1, FEPR, THYR, 2276-4, 2284-8, 2131-11 #### [facility] ([id number]) [facility] [facility], [address] [place] [address] Magnesium [Mass/Vol] 1.7 mg/dL Low 1.8-2.6 [facility] Comment on above: Performed By: #### C BCA, BMP, 02221-0, 7-1, 14028-2, FEPR, THYR, 2276-4, 2284-8, 2131-11 #### [facility] ([id number]) [address], [address] [place] [address] Magnesiumon 04-15-2023 Magnesium [Mass/Vol] 2.1 mg/dL 1.8 - 2 .6 mg/dL [facility] Magnesium [Mass/Vol] 1.7 mg/dL Low 1.8 - 2 .6 mg/dL [facility] Magnesium [Mass/Vol]on 04-15 [facility] No Panel Informationon 04-15 Interpretation and review of laboratory results Abnormal [facility] levETIRAcetam [Mass/Vol]on 0 04-15-2023 LEVETIRACETAM See Below Normal [facility] Comment on above: Result Comment: NOTE TEST [...] developed and its performance characteristics determined by [facility]'s [facility] [place] ([facility]). It has not been cleared or approved by the FDA. [facility] is regulated under CLIA as qualified to perform high-complexity testing. This test is used for clinical purposes. It should not be regarded as investigational or for research. Test Performed By: LAB[facility]ATORIES [address] [place] [address] Family Practitioner: Migue Lubin III, M.D. CLIA #[id number] BASIC METABOLIC PANLon 04-14 Anion gap [Moles/Vol] 7 mmol/L Normal 5-15 [facility] Comment on above: Performed By: #### C BCA, BMP, 28317-4, 7557-1, 51939-5, FEPR, THYR, 2276-4, 2284-8, 2132-9 #### [facility] ([id number]) [address] [place] [address], [address] [place] [address] Calcium [Mass/Vol] 8.1 mg/dL Low 8.5-10.5 [facility] Comment on above: Performed By: #### C BCA, BMP, 78504-1, 2777-1, 55198-2, FEPR, THYR, 2276-4, 2284-8, 2131-11 #### [facility] ([id number]) [address], [address] [place] [address] Chloride [Moles/Vol] 108 mmol/L Normal 98-109 [facility] Comment on above: Performed By: #### C BCA, BMP, 54056-2, 7-1, 95622-6, FEPR, THYR, 2276-4, 2284-8, 2131-11 #### [facility] ([id number]) [address], [address] [place] [address] CO2 [Moles/Vol] 25 mmol/L Normal 22-32 [facility] Comment on above: Performed By: #### C BCA, BMP, 65751-2, 2776-1, 23142-8, FEPR, THYR, 2276-4, 2284-8, 2131-11 #### [facility] ([id number]) [address], [address] [place] [address] Creatinine [Mass/Vol] 0.69 mg/dL Normal 0.60-1.30 [facility] Comment on above: Result Comment: METH OD TRACEABLE TO IDMS STANDARD Performed By: #### C BCA, BMP, 56628-7, 2776-1, 28827-1, FEPR, THYR, 2276-4, 2284-8, 2131-11 #### [facility] ([id number]) [address], [address] [place] [address] eGFR (CKD-EPI) NON-RACE DEPENDENT >90 Normal >59 [facility] Comment on above: Result Comment: Reported eGFR is based on the CKD-EPI 2020 equation that does not use a race coefficient. Performed By: #### C BCA, BMP, 20932-5, 2776-1, 93233-8, FEPR, THYR, 2276-4, 2284-8, 2131-11 #### [facility] ([id number]) [address], [address] [place] [address] Glucose [Mass/Vol] 123 mg/dL High 65-99 [facility] Comment on above: Performed By: #### C BCA, BMP, 47298-1, 7-1, 73357-2, FEPR, THYR, 2276-4, 2284-8, 2131-11 #### [facility] ([id number]) [address], [address] [place] [address] Potassium [Moles/Vol] 3.6 mmol/L Normal 3.5-5.0 [facility] Comment on above: Performed By: #### C BCA, BMP, 24627-6, 2776-1, 57684-3, FEPR, THYR, 2276-4, 2284-8, 2131-11 #### [facility] ([id number]) [address], [address] [place] [address] Sodium [Moles/Vol] 140 mmol/L Normal 134-146 [facility] Comment on above: Performed By: #### C BCA, BMP, 28405-1, 2776-1, 51668-7, FEPR, THYR, 2276-4, 2284-8, 2131-11 #### [facility] ([id number]) [address], [address] [place] [address] Urea nitrogen [Mass/Vol] 8 mg/dL Normal 5-27 [facility] Comment on above: Performed By: #### C BCA, BMP, 95090-0, 7-1, 48934-4, FEPR, THYR, 2276-4, 2284-8, 2131-11 #### [facility] ([id number]) [address], [address] [place] [address] Basic Metabolic Panelon -1 Anion gap [Moles/Vol] 7 mmol/L 5 - 15 mmol/L [facility] Calcium [Mass/Vol] 8.1 mg/dL Low 8.5 - 10. 5 mg/dL [facility] Chloride [Moles/Vol] 108 mmol/L 98 - 10 9 mmol/L [facility] CO2 [Moles/Vol] 25 mmol/L 22 - 32 mmol/L [facility] Creatinine [Mass/Vol] 0.69 mg/dL 0.60 - 1.30 mg/dL [facility] eGFR (CKD-EPI)non-race dependent - PINF [facility] Glucose [Mass/Vol] 123 mg/dL High 65 - 99 mg/dL [facility] Potassium [Moles/Vol] 3.6 mmol/L 3.5 - 5.0 mmol/L [facility] Sodium [Moles/Vol] 140 mmol/L 134 - 146 mmol/L [facility] Urea nitrogen [Mass/Vol] 8 mg/dL 5 - 27 mg/dL [facility] CBC AND AUTO DIFFon 04-14-19 ABSOLUTE BASOPHIL 0.0 X10E9/L Normal 0.0-0.2 [facility] Comment on above: Performed By: #### C SEAN, BMP, , 2776-, 94488-0, FEPR, THYR, 6-4, 2283-8, 2131-11 #### [facility] ([id number]) [address] [facility] [facility], [address] [place] [address] ABSOLUTE NEUTROPHIL 7.5 X10E9/L High 1.5-6.6 [facility] Comment on above: Performed By: #### C BCA, BMP, , 2776-, 97931-5, FEPR, THYR, 6-4, 2283-8, 2131-11 #### [facility] ([id number]) [address] [facility], [address] [place] [address] Basophils/100 WBC (Bld) 0.2 % Normal [facility] Comment on above: Performed By: #### C BCA, BMP, 74858-6, 2777-1, 57558-4, FEPR, THYR, 2276-4, 2284-8, 2131-11 #### [facility] ([id number]) [address], [address] [place] [address] Eosinophils (Bld) [#/Vol] 0.1 10*3/uL Normal 0.0-0.4 [facility] Comment on above: Performed By: #### C BCA, BMP, 15543-0, 2777-1, 42087-5, FEPR, THYR, 2276-4, 2284-8, 2131-11 #### [facility] ([id number]) [address], [address] [place] [address] Eosinophils/100 WBC (Bld) 0.9 % Normal [facility] Comment on above: Performed By: #### C BCA, BMP, 26206-0, 7-1, 94348-9, FEPR, THYR, 2276-4, 2284-8, 2131-11 #### [facility] ([id number]) [address], [address] [place] [address] Erythrocyte distribution width (RBC) [Ratio] 13.1 % Normal 11.5-15.0 [facility] Comment on above: Performed By: #### C BCA, BMP, 00164-6, 7-1, 23807-6, FEPR, THYR, 2276-4, 2284-8, 2131-11 #### [facility] ([id number]) [address], [address] [place] [address] Hematocrit (Bld) [Volume fraction] 32.4 % Low 39-49 [facility] Comment on above: Performed By: #### C BCA, BMP, 78181-6, 2777-1, 50597-7, FEPR, THYR, 2276-4, 2284-8, 2131-11 #### [facility] ([id number]) [address], [address] [place] [address] Hemoglobin (Bld) [Mass/Vol] 11.2 g/dL Low 13.0-17.0 [facility] Comment on above: Performed By: #### C BCA, BMP, 86476-1, 7-1, 23737-3, FEPR, THYR, 2276-4, 2284-8, 2131-11 #### [facility] ([id number]) [address], [address] [place] [address] Lymphocytes (Bld) [#/Vol] 0.9 10*3/uL Low 1.0-3.5 [facility] Comment on above: Performed By: #### C BCA, BMP, 11535-2, 7-1, 72310-0, FEPR, THYR, 2276-4, 2284-8, 2131-11 #### [facility] ([id number]) [address], [address] [place] [address] Lymphocytes/100 WBC (Bld) 10.1 % Normal [facility] Comment on above: Performed By: #### C BCA, BMP, 48942-9, 7-1, 52954-2, FEPR, THYR, 2276-4, 2284-8, 2131-11 #### [facility] ([id number]) [address], [address] [place] [address] MCH (RBC) [Entitic mass] 33.4 pg Normal 27-34 [facility] Comment on above: Performed By: #### C BCA, BMP, 08798-7, 7-1, 89080-4, FEPR, THYR, 2276-4, 2284-8, 2131-11 #### [facility] ([id number]) [address], [address] [place] [address] MCHC (RBC) [Mass/Vol] 34.6 g/dL Normal 32-36 [facility] Comment on above: Performed By: #### C BCA, BMP, 82384-5, 7-1, 88595-6, FEPR, THYR, 2276-4, 2284-8, 2131-11 #### [facility] ([id number]) [address], [address] [place] [address] MCV (RBC) [Entitic vol] 97 fL Normal 80-100 [facility] Comment on above: Performed By: #### C BCA, BMP, 37700-6, 7-1, 48617-5, FEPR, THYR, 2276-4, 2284-8, 2131-11 #### [facility] ([id number]) [address], [address] [place] [address] Monocytes (Bld) [#/Vol] 0.7 10*3/uL Normal 0-0.9 [facility] Comment on above: Performed By: #### C BCA, BMP, 64495-7, 2776-1, 86215-9, FEPR, THYR, 2276-4, 2284-8, 2131-11 #### [facility] ([id number]) [address], [address] [place] [address] Monocytes/100 WBC (Bld) 7.5 % Normal [facility] Comment on above: Performed By: #### C BCA, BMP, 58621-0, 2776-1, 88237-7, FEPR, THYR, 2276-4, 2284-8, 2131-11 #### [facility] ([id number]) [address], [address] [place] [address] Neutrophils/100 WBC (Bld) 81.3 % Normal [facility] Comment on above: Performed By: #### C BCA, BMP, 90792-1, 7-1, 70285-9, FEPR, THYR, 2276-4, 2284-8, 2131-11 #### [facility] ([id number]) [address], [address] [place] [address] Platelet mean volume (Bld) [Entitic vol] 7.4 fL Normal 7-12 [facility] Comment on above: Performed By: #### C BCA, BMP, 82513-7, 7-1, 32981-8, FEPR, THYR, 2276-4, 2284-8, 2131-11 #### [facility] ([id number]) [address], [address] [place] [address] Platelets (Bld) [#/Vol] 152 10*3/uL Normal 150-450 [facility] Comment on above: Performed By: #### C BCA, BMP, 50244-3, 2776-, 81991-4, FEPR, THYR, 2276-4, 2284-8, 2131-11 #### [facility] ([id number]) [address], [address] [place] [address] RBC COUNT 3.35 X10E12/L Low 4.10-5.70 [facility] Comment on above: Performed By: #### C BCA, BMP, 70733-6, 2776-, 83499-9, FEPR, THYR, 2276-4, 4-8, 2131-11 #### [facility] ([id number]) [address], [address] [place] [address] WBC (Bld) [#/Vol] 9.2 10*3/uL Normal 4.0-11.0 [facility] Comment on above: Performed By: #### C BCA, BMP, 61151-9, 2776-, 24104-6, FEPR, THYR, 2276-4, 2284-8, 2131-11 #### [facility] ([id number]) [address], [address] [place] [address] CBC auto differentialon 04-05 0-2023 Basophils (Bld) [#/Vol] 0.0 10*3/uL [facility] Basophils/100 WBC (Bld) 0.2 % [facility] Eosinophils (Bld) [#/Vol] 0.1 10*3/uL [facility] Eosinophils/100 WBC (Bld) 0.9 % [facility] Erythrocyte distribution width (RBC) [Ratio] 13.1 % 11.5 - 15.0 % [facility] Hematocrit (Bld) [Volume fraction] 32.4 % Low 39 - 49 % [facility] Hemoglobin (Bld) [Mass/Vol] 11.2 g/dL Low 13.0 - 17.0 g/dL [facility] Interpretation and review of laboratory results Abnormal [facility] Lymphocytes (Bld) [#/Vol] 0.9 10*3/uL Low [facility] Lymphocytes/100 WBC (Bld) 10.1 % [facility] MCH (RBC) [Entitic mass] 33.4 pg 27 - 34 pg [facility] MCHC (RBC) [Mass/Vol] 34.6 g/dL 32 - 3 6 g/dL [facility] MCV (RBC) [Entitic vol] 97 fL 80 - 100 fL [facility] Monocytes (Bld) [#/Vol] 0.7 10*3/uL [facility] Monocytes/100 WBC (Bld) 7.5 % [facility] Neutrophils (Bld) [#/Vol] 7.5 10*3/uL High [facility] Neutrophils/100 WBC (Bld) 81.3 % [facility] Platelet mean volume (Bld) [Entitic vol] 7.4 fL 7 - 12 fL [facility] Platelets (Bld) [#/Vol] 152 10*3/uL [facility] RBC (Bld) [#/Vol] 3.35 10*6/uL Low [facility] WBC corrected for nucl RBC Auto (Bld) [#/Vol] 9.2 [facility] MAGNESIUMon 04-14-2023 Magnesium [Mass/Vol] 2.0 mg/dL Normal 1.8-2.6 [facility] Comment on above: Performed By: #### C BCA, BMP, 80933-2, 2776-1, 08156-2, FEPR, THYR, 2276-4, 2284-8, 2131-11 #### [facility] ([id number]) [address], [address] [place] [address] Magnesium [Mass/Vol] 1.7 mg/dL Low 1.8-2.6 [facility] Comment on above: Performed By: #### C BCA, BMP, , 2776-, 55230-5, FEPR, THYR, 2276-4, 2284-8, 2131-11 #### [facility] ([id number]) [address], [address] [place] [address] Magnesiumon 04-14-2023 Magnesium [Mass/Vol] 2.0 mg/dL 1.8 - 2 .6 mg/dL [facility] Magnesium [Mass/Vol] 1.7 mg/dL Low 1.8 - 2 .6 mg/dL [facility] Magnesium [Mass/Vol]on 04-14 [facility] No Panel Informationon 04-14 Interpretation and review of laboratory results Abnormal [facility] BASIC METABOLIC PANLon 04-13 Anion gap [Moles/Vol] 7 mmol/L Normal 5-15 [facility] Comment on above: Performed By: #### C BCA, BMP, , 2776-, 68732-0, FEPR, THYR, 2276-4, 4-8, 2131-11 #### [facility] ([id number]) [address], [address] [place] [address] Calcium [Mass/Vol] 8.0 mg/dL Low 8.5-10.5 [facility] Comment on above: Performed By: #### C BCA, BMP, 07427-8, 2776-, 74883-1, FEPR, THYR, 2276-4, 2284-8, 2131-11 #### [facility] ([id number]) [address], [address] [place] [address] Chloride [Moles/Vol] 110 mmol/L High 98-109 [facility] Comment on above: Performed By: #### C BCA, BMP, 63324-2, 2776-, 41651-6, FEPR, THYR, 2276-4, 2284-8, 2131-11 #### [facility] ([id number]) [address], [address] [place] [address] CO2 [Moles/Vol] 27 mmol/L Normal 22-32 [facility] Comment on above: Performed By: #### C BCA, BMP, , 2776-03, 85256-1, FEPR, THYR, 2276-4, 2284-8, 2131-11 #### [facility] ([id number]) [address], [address] [place] [address] Creatinine [Mass/Vol] 0.60 mg/dL Normal 0.60-1.30 [facility] Comment on above: Result Comment: METH OD TRACEABLE TO IDMS STANDARD Performed By: #### C BCA, BMP, , 2776-03, 12826-4, FEPR, THYR, 2276-4, 4-8, 2131-11 #### [facility] ([id number]) [address], [address] [place] [address] eGFR (CKD-EPI) NON-RACE DEPENDENT >90 Normal >59 [facility] Comment on above: Result Comment: Reported eGFR is based on the CKD-EPI 2020 equation that does not use a race coefficient. Performed By: #### C BCA, BMP, , 2776-03, 73914-3, FEPR, THYR, 2276-4, 2284-8, 2131-11 #### [facility] ([id number]) [address], [address] [place] [address] Glucose [Mass/Vol] 95 mg/dL Normal 65-99 [facility] Comment on above: Performed By: #### C BCA, BMP, 93346-6, 2777-1, 84659-2, FEPR, THYR, 2276-4, 2284-8, 2131-11 #### [facility] ([id number]) [address], [address] [place] [address] Potassium [Moles/Vol] 3.6 mmol/L Normal 3.5-5.0 [facility] Comment on above: Performed By: #### C BCA, BMP, 80251-0, 7-1, 89794-3, FEPR, THYR, 2276-4, 228-8, 2131-11 #### [facility] ([id number]) [address], [address] [place] [address] Sodium [Moles/Vol] 144 mmol/L Normal 134-146 [facility] Comment on above: Performed By: #### C BCA, BMP, 99502-0, 7-1, 61505-4, FEPR, THYR, 6-4, 2283-8, 2131-11 #### [facility] ([id number]) [address], [address] [place] [address] Urea nitrogen [Mass/Vol] 10 mg/dL Normal 5-27 [facility] Comment on above: Performed By: #### C BCA, BMP, 97007-9, 2776-1, 48451-2, FEPR, THYR, 6-4, 2283-8, 2131-11 #### [facility] ([id number]) [address], [address] [place] [address] Basic Metabolic Panelon 02-0 Anion gap [Moles/Vol] 7 mmol/L 5 - 15 mmol/L [facility] Calcium [Mass/Vol] 8.0 mg/dL Low 8.5 - 10. 5 mg/dL [facility] Chloride [Moles/Vol] 110 mmol/L High 98 - 10 9 mmol/L [facility] CO2 [Moles/Vol] 27 mmol/L 22 - 32 mmol/L [facility] Creatinine [Mass/Vol] 0.60 mg/dL 0.60 - 1.30 mg/dL [facility] eGFR (CKD-EPI)non-race dependent - PINF [facility] Glucose [Mass/Vol] 95 mg/dL 65 - 99 mg/dL [facility] Potassium [Moles/Vol] 3.6 mmol/L 3.5 - 5.0 mmol/L [facility] Sodium [Moles/Vol] 144 mmol/L 134 - 146 mmol/L [facility] Urea nitrogen [Mass/Vol] 10 mg/dL 5 - 27 mg/dL [facility] CBC AND AUTO DIFFon 04-13-19 24 ABSOLUTE BASOPHIL 0.0 X10E9/L Normal 0.0-0.2 [facility] Comment on above: Performed By: #### C BCA, BMP, 04318-0, 2776-1, 50442-6, FEPR, THYR, 2276-4, 2284-8, 2131-11 #### [facility] ([id number]) [address], [address] [place] [address] ABSOLUTE NEUTROPHIL 2.4 X10E9/L Normal 1.5-6.6 [facility] Comment on above: Performed By: #### C BCA, BMP, 42717-3, 2776-1, 30676-7, FEPR, THYR, 2276-4, 2284-8, 2131-11 #### [facility] ([id number]) [address], [address] [place] [address] Basophils/100 WBC (Bld) 0.8 % Normal [facility] Comment on above: Performed By: #### C BCA, BMP, 26532-0, 2776-1, 22592-9, FEPR, THYR, 2276-4, 2284-8, 9 #### [facility] ([id number]) [address], [address] [place] [address] Eosinophils (Bld) [#/Vol] 0.2 10*3/uL Normal 0.0-0.4 [facility] Comment on above: Performed By: #### C BCA, BMP, 82754-0, 2776-1, 30742-9, FEPR, THYR, 2276-4, 2284-8, 2131-11 #### [facility] ([id number]) [address], [address] [place] [address] Eosinophils/100 WBC (Bld) 4.7 % Normal [facility] Comment on above: Performed By: #### C BCA, BMP, 44917-1, 2776-, 81842-1, FEPR, THYR, 2276-4, 4-8, 2131-11 #### [facility] ([id number]) [address] [address] [place] [address] Erythrocyte distribution width (RBC) [Ratio] 13.1 % Normal 11.5-15.0 [facility] Comment on above: Performed By: #### C BCA, BMP, , 2776-, 81922-5, FEPR, THYR, 2276-4, 2283-8, 2131-11 #### [facility] ([id number]) [address], [address] [place] [address] Hematocrit (Bld) [Volume fraction] 30.9 % Low 39-49 [facility] Comment on above: Performed By: #### C BCA, BMP, 87453-0, 2776-, 45059-6, FEPR, THYR, 2276-4, 2284-8, 2131-11 #### [facility] ([id number]) [address], [address] [place] [address] Hemoglobin (Bld) [Mass/Vol] 10.6 g/dL Low 13.0-17.0 [facility] Comment on above: Performed By: #### C BCA, BMP, 57512-8, 2777-1, 07823-2, FEPR, THYR, 2276-4, 2284-8, 9 #### [facility] ([id number]) [address], [address] [place] [address] Lymphocytes (Bld) [#/Vol] 1.2 10*3/uL Normal 1.0-3.5 [facility] Comment on above: Performed By: #### C BCA, BMP, 81825-4, 7-1, 24477-7, FEPR, THYR, 2276-4, 2284-8, 2131-11 #### [facility] ([id number]) [address], [address] [place] [address] Lymphocytes/100 WBC (Bld) 29.1 % Normal [facility] Comment on above: Performed By: #### C BCA, BMP, 35485-3, 7-1, 82468-5, FEPR, THYR, 2276-4, 2284-8, 2131-11 #### [facility] ([id number]) [address], [address] [place] [address] MCH (RBC) [Entitic mass] 33.2 pg Normal 27-34 [facility] Comment on above: Performed By: #### C BCA, BMP, 78821-4, 7-1, 03773-4, FEPR, THYR, 2276-4, 2284-8, 2131-11 #### [facility] ([id number]) [address], [address] [place] [address] MCHC (RBC) [Mass/Vol] 34.2 g/dL Normal 32-36 [facility] Comment on above: Performed By: #### C BCA, BMP, 74121-1, 7-1, 92487-7, FEPR, THYR, 2276-4, 2284-8, 9 #### [facility] ([id number]) [address], [address] [place] [address] MCV (RBC) [Entitic vol] 97 fL Normal 80-100 [facility] Comment on above: Performed By: #### C BCA, BMP, 78814-0, 2776-, 90938-9, FEPR, THYR, 2276-4, 2284-8, 2131-11 #### [facility] ([id number]) [address], [address] [address] Monocytes (Bld) [#/Vol] 0.5 10*3/uL Normal 0-0.9 [facility] Comment on above: Performed By: #### C BCA, BMP, 97515-0, 2776-, 80513-6, FEPR, THYR, 2276-4, 2284-8, 2131-11 #### [facility] ([id number]) [address], [address] [address] Monocytes/100 WBC (Bld) 10.8 % Normal [facility] Comment on above: Performed By: #### C BCA, BMP, 22873-0, 2776-, 79384-5, FEPR, THYR, 2276-4, 2283-8, 2131-11 #### [facility] ([id number]) [address], [address] [address] Neutrophils/100 WBC (Bld) 54.6 % Normal [facility] Comment on above: Performed By: #### C BCA, BMP, 80806-9, 2776-, 62576-1, FEPR, THYR, 2276-4, 4-8, 2131-11 #### [facility] ([id number]) [address], [address] [place] [address] Platelet mean volume (Bld) [Entitic vol] 7.6 fL Normal 7-12 [facility] Comment on above: Performed By: #### C BCA, BMP, 46164-0, 2776-, 18348-5, FEPR, THYR, 2276-4, 2284-8, 2131-11 #### [facility] ([id number]) [address], [address] [place] [address] Platelets (Bld) [#/Vol] 136 10*3/uL Low 150-450 [facility] Comment on above: Performed By: #### C BCA, BMP, 54442-7, 7-1, 83933-0, FEPR, THYR, 2276-4, 2284-8, 2131-11 #### [facility] ([id number]) [address], [address] [place] [address] RBC COUNT 3.18 X10E12/L Low 4.10-5.70 [facility] Comment on above: Performed By: #### C BCA, BMP, 18446-2, 7-1, 23343-8, FEPR, THYR, 2276-4, 4-8, 2131-11 #### [facility] ([id number]) [address], [address] [place] [address] WBC (Bld) [#/Vol] 4.3 10*3/uL Normal 4.0-11.0 [facility] Comment on above: Performed By: #### C BCA, BMP, 28668-4, 7-1, 50653-8, FEPR, THYR, 2276-4, 2283-8, 2131-11 #### [facility] ([id number]) [address], [address] [place] [address] CBC auto differentialon 02-0 -2023 Basophils (Bld) [#/Vol] 0.0 10*3/uL [facility] Basophils/100 WBC (Bld) 0.8 % [facility] Eosinophils (Bld) [#/Vol] 0.2 10*3/uL [facility] Eosinophils/100 WBC (Bld) 4.7 % [facility] Erythrocyte distribution width (RBC) [Ratio] 13.1 % 11.5 - 15.0 % [facility] Hematocrit (Bld) [Volume fraction] 30.9 % Low 39 - 49 % [facility] Hemoglobin (Bld) [Mass/Vol] 10.6 g/dL Low 13.0 - 17.0 g/dL [facility] Interpretation and review of laboratory results Abnormal [facility] Lymphocytes (Bld) [#/Vol] 1.2 10*3/uL [facility] Lymphocytes/100 WBC (Bld) 29.1 % [facility] MCH (RBC) [Entitic mass] 33.2 pg 27 - 34 pg [facility] MCHC (RBC) [Mass/Vol] 34.2 g/dL 32 - 3 6 g/dL [facility] MCV (RBC) [Entitic vol] 97 fL 80 - 100 fL [facility] Monocytes (Bld) [#/Vol] 0.5 10*3/uL [facility] Monocytes/100 WBC (Bld) 10.8 % [facility] Neutrophils (Bld) [#/Vol] 2.4 10*3/uL [facility] Neutrophils/100 WBC (Bld) 54.6 % [facility] Platelet mean volume (Bld) [Entitic vol] 7.6 fL 7 - 12 fL [facility] Platelets (Bld) [#/Vol] 136 10*3/uL Low [facility] RBC (Bld) [#/Vol] 3.18 10*6/uL Low [facility] WBC corrected for nucl RBC Auto (Bld) [#/Vol] 4.3 [facility] MAGNESIUMon 04-13-2023 Magnesium [Mass/Vol] 1.6 mg/dL Low 1.8-2.6 [facility] Comment on above: Performed By: #### C BCA, BMP, 56331-6, 1297-1, 16079-5, FEPR, THYR, 2276-4, 2284-8, 2132-9 #### [facility] ([id number]) [address] [address], [address] [place] [address] Magnesiumon 04-13-2023 Magnesium [Mass/Vol] 1.6 mg/dL Low 1.8 - 2 .6 mg/dL [facility] No Panel Informationon 04-13 Interpretation and review of laboratory results Abnormal [facility] PLATELET COUNT AND MPVon Platelet mean volume (Bld) [Entitic vol] 7.2 fL Normal 7-12 [facility] Comment on above: Performed By: #### C BCA, BMP, , 2776-, 49147-4, FEPR, THYR, 2276-4, 2283-8, 2131-11 #### [facility] ([id number]) [address], [address] [place] [address] Platelets (Bld) [#/Vol] 149 10*3/uL Low 150-450 [facility] Comment on above: Performed By: #### C BCA, BMP, , 2776-03, 51074-9, FEPR, THYR, 6-4, 2283-8, 2131-11 #### [facility] ([id number]) [address], [address] [place] [address] PROTIME AND INRon 04-13-2023 INR Coag (PPP) [Relative time] 1.2 {INR} High 0.8-1.1 [facility] Comment on above: Performed By: #### C BCA, BMP, 11735-0, 2776-03, 16274-0, FEPR, THYR, 2275-4, 2283-8, 2131-11 #### [facility] ([id number]) [address], [address] [place] [address] PT Coag (PPP) [Time] 14.0 s High 9.8-13.2 [facility] Comment on above: Performed By: #### C BCA, BMP, 93689-1, 2776-1, 11214-3, FEPR, THYR, 2276-4, 2283-8, 2131-11 #### [facility] ([id number]) [address], [address] [place] [address] Platelet counton 04-13-2023 Interpretation and review of laboratory results Abnormal [facility] Platelet mean volume (Bld) [Entitic vol] 7.2 fL 7 - 12 fL [facility] Platelets (Bld) [#/Vol] 149 10*3/uL Low [facility] Protime & INRon 04-13-2023 INR Coag (PPP) [Relative time] 1.2 {INR} High [facility] Interpretation and review of laboratory results Abnormal [facility] PT Coag (PPP) [Time] 14.0 s High [facility] XR ABDOMEN AP 1 VWon 024 XR ABDOMEN AP 1 VW XR ABDOMEN AP 1 VW CLINICAL INFORMATION: Confirm Post-Pyloric Tube Placement; confirmation of cortrak placement TECHNIQUE/PROCEDURE: Supine view abdomen COMPARISON: 02/15/2023 IMPRESSION: Enteric feeding tube tip projects over the left upper quadrant likely at the duodenal jejunal junction. Finalized by Onel Pulido MD on 04/13/2023 1:47 PM Normal [facility] XR Abdomen APon 04-13-2023 [facility] Radiology Study observation (narrative) [facility] XR Abdomen APOrdered By: Arden Pulido on 04-13-2023 [facility] Work Phone: BASIC METABOLIC PANLon 04-12 Anion gap [Moles/Vol] 10 mmol/L Normal 5-15 [facility] Comment on above: Performed By: #### C BCA, 19559-3, CMP #### [facility] ([id number]) [address], [address] [place] [address] Calcium [Mass/Vol] 8.5 mg/dL Normal 8.5-10.5 [facility] Comment on above: Performed By: #### C BCA, 99059-7, CMP #### [facility] ([id number]) [address], [address] [place] [address] Chloride [Moles/Vol] 112 mmol/L High 98-109 [facility] Comment on above: Performed By: #### C BCA, 44715-9, CMP #### [facility] ([id number]) [address], [address] [place] [address] CO2 [Moles/Vol] 23 mmol/L Normal 22-32 [facility] Comment on above: Performed By: #### C BCA, 50457-8, CMP #### [facility] ([id number]) [address], [facility] [address] [place] [address] Creatinine [Mass/Vol] 0.71 mg/dL Normal 0.60-1.30 [facility] Comment on above: Result Comment: METH OD TRACEABLE TO IDMS STANDARD Performed By: #### C SEAN, 52160-6, CMP #### [facility] ([id number]) [address], [address] [place] [address] eGFR (CKD-EPI) NON-RACE DEPENDENT >90 Normal >59 [facility] Comment on above: Result Comment: Reported eGFR is based on the CKD-EPI 2020 equation that does not use a race coefficient. Performed By: #### C BCA, 71470-3, CMP #### [facility] ([id number]) [address], [address] [place] [address] Glucose [Mass/Vol] 81 mg/dL Normal 65-99 [facility] Comment on above: Performed By: #### C BCA, 67487-8, CMP #### [facility] ([id number]) [address] [address] [place] [address] Potassium [Moles/Vol] 3.9 mmol/L Normal 3.5-5.0 [facility] Comment on above: Performed By: #### C BCA, 38270-3, CMP #### [facility] ([id number]) [address], [address] [place] [address] Sodium [Moles/Vol] 145 mmol/L Normal 134-146 [facility] Comment on above: Performed By: #### C SEAN, 09279-7, CMP #### [facility] ([id number]) [address], [address] [place] [address] Urea nitrogen [Mass/Vol] 17 mg/dL Normal 5-27 [facility] Comment on above: Performed By: #### C SEAN, 03720-7, CMP #### [facility] ([id number]) [address], [address] [place] [address] Basic Metabolic Panelon Anion gap [Moles/Vol] 10 mmol/L 5 - 15 mmol/L [facility] Calcium [Mass/Vol] 8.5 mg/dL 8.5 - 10. 5 mg/dL [facility] Chloride [Moles/Vol] 112 mmol/L High 98 - 10 9 mmol/L [facility] CO2 [Moles/Vol] 23 mmol/L 22 - 32 mmol/L [facility] Creatinine [Mass/Vol] 0.71 mg/dL 0.60 - 1.30 mg/dL [facility] eGFR (CKD-EPI)non-race dependent - PINF [facility] Glucose [Mass/Vol] 81 mg/dL 65 - 99 mg/dL [facility] Potassium [Moles/Vol] 3.9 mmol/L 3.5 - 5.0 mmol/L [facility] Sodium [Moles/Vol] 145 mmol/L 134 - 146 mmol/L [facility] Urea nitrogen [Mass/Vol] 17 mg/dL 5 - 27 mg/dL [facility] CBC AND AUTO DIFFon 04-12-19 ABSOLUTE BASOPHIL 0.0 X10E9/L Normal 0.0-0.2 [facility] Comment on above: Performed By: #### C BCA, 72168-6, CMP #### [facility] ([id number]) [address], [address] [place] [address] ABSOLUTE NEUTROPHIL 3.0 X10E9/L Normal 1.5-6.6 [facility] Comment on above: Performed By: #### Janine ESTRADA, 04046-0, CMP #### [facility] ([id number]) [address], [address] [place] [address] Basophils/100 WBC (Bld) 0.6 % Normal [facility] Comment on above: Performed By: #### Janine ESTRADA, 93348-3, CMP #### [facility] ([id number]) [address], [facility] [address] [place] [address] Eosinophils (Bld) [#/Vol] 0.2 10*3/uL Normal 0.0-0.4 [facility] Comment on above: Performed By: #### Janine ESTRADA, 96781-4, CMP #### [facility] ([id number]) [address], [address] [place] [address] Eosinophils/100 WBC (Bld) 3.5 % Normal [facility] Comment on above: Performed By: #### Janine ESTRADA, 71376-4, CMP #### [facility] ([id number]) [address] [facility] [address] [place] [address] Erythrocyte distribution width (RBC) [Ratio] 13.1 % Normal 11.5-15.0 [facility] Comment on above: Performed By: #### Janine ESTRADA, 86372-3, CMP #### [facility] ([id number]) [address], [address] [place] [address] Hematocrit (Bld) [Volume fraction] 31.1 % Low 39-49 [facility] Comment on above: Performed By: #### Janine ESTRADA, 41671-8, CMP #### [facility] ([id number]) [address], [address] [place] [address] Hemoglobin (Bld) [Mass/Vol] 10.7 g/dL Low 13.0-17.0 [facility] Comment on above: Performed By: #### Janine ESTRADA, 40342-5, CMP #### [facility] ([id number]) [address], [address] [place] [address] Lymphocytes (Bld) [#/Vol] 1.1 10*3/uL Normal 1.0-3.5 [facility] Comment on above: Performed By: #### Janine ESTRADA, 39575-3, CMP #### [facility] ([id number]) [address], [facility] [address] [place] [address] Lymphocytes/100 WBC (Bld) 22.7 % Normal [facility] Comment on above: Performed By: #### Janine ESTRADA, 84179-5, CMP #### [facility] ([id number]) [address], [address] [place] [address] MCH (RBC) [Entitic mass] 33.8 pg Normal 27-34 [facility] Comment on above: Performed By: #### Janine ESTRADA, 10498-3, CMP #### [facility] ([id number]) [address], [address] [place] [address] MCHC (RBC) [Mass/Vol] 34.6 g/dL Normal 32-36 [facility] Comment on above: Performed By: #### Janine ESTRADA, 31246-1, CMP #### [facility] ([id number]) [address], [address] [place] [address] MCV (RBC) [Entitic vol] 98 fL Normal 80-100 [facility] Comment on above: Performed By: #### Janine ESTRADA, 45538-3, CMP #### [facility] ([id number]) [address], [address] [place] [address] Monocytes (Bld) [#/Vol] 0.6 10*3/uL Normal 0-0.9 [facility] Comment on above: Performed By: #### Janine ESTRADA, 17415-9, CMP #### [facility] ([id number]) [address], [address] [place] [address] Monocytes/100 WBC (Bld) 11.5 % Normal [facility] Comment on above: Performed By: #### Janine ESTRADA, 85966-1, CMP #### [facility] ([id number]) [address], [address] [place] [address] Neutrophils/100 WBC (Bld) 61.7 % Normal [facility] Comment on above: Performed By: #### Janine ESTRADA, 89779-6, CMP #### [facility] ([id number]) [address], [address] [place] [address] Platelet mean volume (Bld) [Entitic vol] 7.1 fL Normal 7-12 [facility] Comment on above: Performed By: #### Janine ESTRADA, 94830-2, CMP #### [facility] ([id number]) [address], [address] [place] [address] Platelets (Bld) [#/Vol] 132 10*3/uL Low 150-450 [facility] Comment on above: Performed By: #### Janine ESTRADA, 36731-1, CMP #### [facility] ([id number]) [address], [address] [place] [address] RBC COUNT 3.18 X10E12/L Low 4.10-5.70 [facility] Comment on above: Performed By: #### Janine ESTRADA, 19811-5, CMP #### [facility] ([id number]) [address], [address] [place] [address] WBC (Bld) [#/Vol] 4.9 10*3/uL Normal 4.0-11.0 [facility] Comment on above: Performed By: #### Janine ESTRADA, 59164-3, CMP #### [facility] ([id number]) [address], [address] [place] [address] CBC auto differentialon Basophils (Bld) [#/Vol] 0.0 10*3/uL [facility] Basophils/100 WBC (Bld) 0.6 % [facility] Eosinophils (Bld) [#/Vol] 0.2 10*3/uL [facility] Eosinophils/100 WBC (Bld) 3.5 % [facility] Erythrocyte distribution width (RBC) [Ratio] 13.1 % 11.5 - 15.0 % [facility] Hematocrit (Bld) [Volume fraction] 31.1 % Low 39 - 49 % [facility] Hemoglobin (Bld) [Mass/Vol] 10.7 g/dL Low 13.0 - 17.0 g/dL [facility] Interpretation and review of laboratory results Abnormal [facility] Lymphocytes (Bld) [#/Vol] 1.1 10*3/uL [facility] Lymphocytes/100 WBC (Bld) 22.7 % [facility] MCH (RBC) [Entitic mass] 33.8 pg 27 - 34 pg [facility] MCHC (RBC) [Mass/Vol] 34.6 g/dL 32 - 3 6 g/dL [facility] MCV (RBC) [Entitic vol] 98 fL 80 - 100 fL [facility] Monocytes (Bld) [#/Vol] 0.6 10*3/uL [facility] Monocytes/100 WBC (Bld) 11.5 % [facility] Neutrophils (Bld) [#/Vol] 3.0 10*3/uL [facility] Neutrophils/100 WBC (Bld) 61.7 % [facility] Platelet mean volume (Bld) [Entitic vol] 7.1 fL 7 - 12 fL [facility] Platelets (Bld) [#/Vol] 132 10*3/uL Low [facility] RBC (Bld) [#/Vol] 3.18 10*6/uL Low [facility] WBC corrected for nucl RBC Auto (Bld) [#/Vol] 4.9 [facility] [employer] Cardiac echo study Procedure Ordered By: Miguelito Perkins on 04-12-2023 AI pressure 1/2 time 1475 ms [facility] Work Phone: Aortic root 4.00 cm [facility] Work Phone: AV mean gradient 3.00 mmHg [facility] [employer] [facility] Work Phone: AV peak gradient 6.66 mmHg [facility] [employer] [facility] Work Phone: AV peak zaida 129.00 cm/s [facility] Work Phone: AV valve area 3.18 cm2 [facility] Work Phone: AV Velocity Ratio 0.84 [facility] Work Phone: AV VTI 35.30 cm [facility] Work Phone: E wave deceleration time 459.00 msec [facility] Work Phone: E/A ratio 0.81 [facility] Work Phone: Echo EF Estimated 67 % [facility] Work Phone: EF 67 % [facility] Work Phone: Energy loss index 2.25 [facility] Work Phone: Est. RA pressure 3 mmHg [facility] [employer] Work Phone: FS 40 % 28 - 44 % [facility] Work Phone: Interventricular Septum Diastolic Thickness by 2D 11 cm [employer] Work Phone: IVS 1.10 cm 0.6 - 1.1 cm [employer] Work Phone: LA size 4.20 cm [employer] [facility] Work Phone: LA Volume Index 32.0 mL/m2 [employer] Work Phone: Left Ventricle Mass [id number] g [facility] Work Phone: LV Diastolic Volume 80.20 mL [facility] Work Phone: LV ESV A2C 68.70 mL [facility] Work Phone: LV ESV A4C 63.80 mL [facility] Work Phone: LV RWT 2D 42.31 [facility] Work Phone: LV Systolic Volume 26.70 mL [facility] Work Phone: LVIDd 5.20 cm 4.49 - 6.23 cm [facility] Work Phone: LVIDs 3.10 cm 2.65 - 4.01 cm [facility] Work Phone: LVOT diameter 2.20 cm [facility] Work Phone: LVOT peak zaida 1.18 m/s [facility] Work Phone: LVOT peak VTI 29.50 cm [facility] Work Phone: LVOT stroke volume 112.14 ml [employer] [facility] Work Phone: MV Peak A Zaida 74.40 cm/s [facility] Work Phone: MV Peak E Zaida 60.20 cm/s [facility] Work Phone: MV pressure 1/2 time 134.00 ms [facility] Work Phone: MV TDI E' (medial) 8.59 cm/s [employer] [employer] [facility] Work Phone: MV valve area p 1/2 method 1.64 cm2 [facility] Work Phone: PW 1.10 cm 0.6 - 1.1 cm [facility] Work Phone: RV Peak Systolic Pressure 32 mmHg [facility] Work Phone: TAPSE 2.63 cm [facility] Work Phone: TDI 10.40 cm/s [facility] Work Phone: TR peak gradient 29.81 mmHg [facility] Work Phone: TR Peak Zaida 2.7 m/s [facility] Work Phone: Valve area - Index 1.6 [facility] Work Phone: ZLVIDD -0.17 [facility] Work Phone: ZLVIDS -0.40 [facility] Work Phone: [facility] Work Phone: Cardiac echo study Procedure on 04-12-2023 [facility] Radiology Study observation (narrative) [facility] [place] SWALLOW MOTILITY FUNCTION on 04-12-2023 FL [...] Rivera MD on 04/12/2023 9:43 AM Normal [facility] MAGNESIUMon 04-12-2023 Magnesium [Mass/Vol] 1.8 mg/dL Normal 1.8-2.6 [facility] Comment on above: Performed By: #### C BCA, BMP, 92895-3, 8737-1, 75860-4, FEPR, THYR, 2276-4, 2284-8, 2132-9 #### [facility] ([id number]) [address] [place] [address] Magnesium [Mass/Vol] 1.6 mg/dL Low 1.8-2.6 [facility] Comment on above: Performed By: #### C BCA, 83455-1, CMP #### [facility] ([id number]) [address], [address] [place] [address] Magnesiumon 04-12-2023 Magnesium [Mass/Vol] 1.8 mg/dL 1.8 - 2 .6 mg/dL [facility] Magnesium [Mass/Vol] 1.6 mg/dL Low 1.8 - 2 .6 mg/dL [facility] Magnesium [Mass/Vol]on 04-12 [facility] No Panel Informationon 04-12 Interpretation and review of laboratory results Abnormal [facility] RF videography Hypopharynx a nd Esophagus Viewson 04-12-2023 [facility] Radiology Study observation (narrative) [facility] RF videography Hypopharynx a nd Esophagus ViewsOrdered By: Irwin Rivera on 04-12-2023 [facility] Work Phone: XR CHEST 1 VWon 04-12-2023 XR CHEST 1 VW XR CHEST 1 VW XR CHEST 1 VW History: SOB. Left arm weakness seizures One view study. Comparison: 04/10/2023 Impression: * No significant interval change.Right PICC line remains intact. No focal airspace disease or infiltrate is seen Finalized by Yolanda Alejandre MD on 04/12/2023 4:09 PM Normal [facility] XR Chest Single viewon 04-12 [facility] Radiology Study observation (narrative) [facility] XR Chest Single viewOrdered By: Yolanda Alejandre on 04-12-2023 [facility] Work Phone: BASIC METABOLIC PANLon 04-11 Anion gap [Moles/Vol] 9 mmol/L Normal 5-15 [facility] Comment on above: Performed By: #### C SEAN, 40704-6, CMP #### [facility] ([id number]) [address], [address] [place] [address] Calcium [Mass/Vol] 8.5 mg/dL Normal 8.5-10.5 [facility] Comment on above: Performed By: #### C SEAN, 78068-1, CMP #### [facility] ([id number]) [address], [address] [place] [address] Chloride [Moles/Vol] 112 mmol/L High 98-109 [facility] Comment on above: Performed By: #### C SEAN, 66865-9, CMP #### [facility] ([id number]) [address], [address] [place] [address] CO2 [Moles/Vol] 24 mmol/L Normal 22-32 [facility] Comment on above: Performed By: #### C SEAN, 11221-8, CMP #### [facility] ([id number]) [address], [address] [place] [address] Creatinine [Mass/Vol] 0.68 mg/dL Normal 0.60-1.30 [facility] Comment on above: Result Comment: METH OD TRACEABLE TO IDMS STANDARD Performed By: #### C SEAN, 74693-8, CMP #### [facility] ([id number]) [address], [address] [place] [address] eGFR (CKD-EPI) NON-RACE DEPENDENT >90 Normal >59 [facility] Comment on above: Result Comment: Reported eGFR is based on the CKD-EPI 2020 equation that does not use a race coefficient. Performed By: #### C BCA, 49048-2, CMP #### [facility] ([id number]) [address], [address] [place] [address] Glucose [Mass/Vol] 80 mg/dL Normal 65-99 [facility] Comment on above: Performed By: #### C BCA, 48196-4, CMP #### [facility] ([id number]) [address], [address] [place] [address] Potassium [Moles/Vol] 4.0 mmol/L Normal 3.5-5.0 [facility] Comment on above: Performed By: #### C BCA, 59871-3, CMP #### [facility] ([id number]) [address], [address] [place] [address] Sodium [Moles/Vol] 145 mmol/L Normal 134-146 [facility] Comment on above: Performed By: #### Janine BCA, 70551-5, CMP #### [facility] ([id number]) [address], [address] [place] [address] Urea nitrogen [Mass/Vol] 14 mg/dL Normal 5-27 [facility] Comment on above: Performed By: #### C BCA, 77017-7, CMP #### [facility] ([id number]) [address], [address] [place] [address] Basic Metabolic Panelon 02-0 Anion gap [Moles/Vol] 9 mmol/L 5 - 15 mmol/L [facility] Calcium [Mass/Vol] 8.5 mg/dL 8.5 - 10. 5 mg/dL [facility] Chloride [Moles/Vol] 112 mmol/L High 98 - 10 9 mmol/L [facility] CO2 [Moles/Vol] 24 mmol/L 22 - 32 mmol/L [facility] Creatinine [Mass/Vol] 0.68 mg/dL 0.60 - 1.30 mg/dL [facility] eGFR (CKD-EPI)non-race dependent - PINF [facility] Glucose [Mass/Vol] 80 mg/dL 65 - 99 mg/dL [facility] Potassium [Moles/Vol] 4.0 mmol/L 3.5 - 5.0 mmol/L [facility] Sodium [Moles/Vol] 145 mmol/L 134 - 146 mmol/L [facility] Urea nitrogen [Mass/Vol] 14 mg/dL 5 - 27 mg/dL [facility] CBC AND AUTO DIFFon 04-11-19 24 ABSOLUTE BASOPHIL 0.0 X10E9/L Normal 0.0-0.2 [facility] Comment on above: Performed By: #### Janine ESTRADA, 16830-1, CMP #### [facility] ([id number]) [address], [address] [place] [address] ABSOLUTE NEUTROPHIL 4.1 X10E9/L Normal 1.5-6.6 [facility] Comment on above: Performed By: #### Janine ESTRADA, 45004-4, CMP #### [facility] ([id number]) [address] [address] [place] [address] Basophils/100 WBC (Bld) 0.5 % Normal [facility] Comment on above: Performed By: #### Janine ESTRADA, 03447-3, CMP #### [facility] ([id number]) [address] [facility] [address] [place] [address] Eosinophils (Bld) [#/Vol] 0.1 10*3/uL Normal 0.0-0.4 [facility] Comment on above: Performed By: #### Janine ESTRADA, 17879-9, CMP #### [facility] ([id number]) [address] [facility] [address] [place] [address] Eosinophils/100 WBC (Bld) 1.6 % Normal [facility] Comment on above: Performed By: #### Janine ESTRADA, 21379-3, CMP #### [facility] ([id number]) [address], [address] [place] [address] Erythrocyte distribution width (RBC) [Ratio] 13.1 % Normal 11.5-15.0 [facility] Comment on above: Performed By: #### Janine ESTRADA, 44337-5, CMP #### [facility] ([id number]) [address], [address] [place] [address] Hematocrit (Bld) [Volume fraction] 30.5 % Low 39-49 [facility] Comment on above: Performed By: #### C SEAN, 86832-9, CMP #### [facility] ([id number]) [address] [facility] [address] [place] [address] Hemoglobin (Bld) [Mass/Vol] 10.1 g/dL Low 13.0-17.0 [facility] Comment on above: Performed By: #### Janine ESTRADA, 18139-7, CMP #### [facility] ([id number]) [address] [facility] [address] [place] [address] Lymphocytes (Bld) [#/Vol] 0.9 10*3/uL Low 1.0-3.5 [facility] Comment on above: Performed By: #### Janine ESTRADA, 44507-4, CMP #### [facility] ([id number]) [address] [facility] [address] [place] [address] Lymphocytes/100 WBC (Bld) 16.2 % Normal [facility] Comment on above: Performed By: #### Janine ESTRADA, 52723-8, CMP #### [facility] ([id number]) [address], [address] [place] [address] MCH (RBC) [Entitic mass] 32.9 pg Normal 27-34 [facility] Comment on above: Performed By: #### C BCA, 51153-8, CMP #### [facility] ([id number]) [address], [address] [place] [address] MCHC (RBC) [Mass/Vol] 33.2 g/dL Normal 32-36 [facility] Comment on above: Performed By: #### C SEAN, 99222-6, CMP #### [facility] ([id number]) [address], [address] [place] [address] MCV (RBC) [Entitic vol] 99 fL Normal 80-100 [facility] Comment on above: Performed By: #### Janine ESTRADA, 04216-1, CMP #### [facility] ([id number]) [address], [address] [place] [address] Monocytes (Bld) [#/Vol] 0.4 10*3/uL Normal 0-0.9 [facility] Comment on above: Performed By: #### Janine ESTRADA, 22810-6, CMP #### [facility] ([id number]) [address], [address] [place] [address] Monocytes/100 WBC (Bld) 7.9 % Normal [facility] Comment on above: Performed By: #### Janine ESTRADA, 08904-7, CMP #### [facility] ([id number]) [address], [address] [place] [address] Neutrophils/100 WBC (Bld) 73.8 % Normal [facility] Comment on above: Performed By: #### Janine ESTRADA, 63643-6, CMP #### [facility] ([id number]) [address], [address] [place] [address] Platelet mean volume (Bld) [Entitic vol] 7.1 fL Normal 7-12 [facility] Comment on above: Performed By: #### Janine ESTRADA, 48076-0, CMP #### [facility] ([id number]) [address], [address] [place] [address] Platelets (Bld) [#/Vol] 118 10*3/uL Low 150-450 [facility] Comment on above: Performed By: #### Janine ESTRADA, 54947-5, CMP #### [facility] ([id number]) [address], [address] [place] [address] RBC COUNT 3.08 X10E12/L Low 4.10-5.70 [facility] Comment on above: Performed By: #### Janine ESTRADA, 06643-4, CMP #### [facility] ([id number]) [address], [address] [place] [address] WBC (Bld) [#/Vol] 5.6 10*3/uL Normal 4.0-11.0 [facility] Comment on above: Performed By: #### Janine ESTRADA, 05926-1, CMP #### [facility] ([id number]) [address], [address] [place] [address] CBC auto differentialon Basophils (Bld) [#/Vol] 0.0 10*3/uL [facility] Basophils/100 WBC (Bld) 0.5 % [facility] Eosinophils (Bld) [#/Vol] 0.1 10*3/uL [facility] Eosinophils/100 WBC (Bld) 1.6 % [facility] Erythrocyte distribution width (RBC) [Ratio] 13.1 % 11.5 - 15.0 % [facility] Hematocrit (Bld) [Volume fraction] 30.5 % Low 39 - 49 % [facility] Hemoglobin (Bld) [Mass/Vol] 10.1 g/dL Low 13.0 - 17.0 g/dL [facility] Interpretation and review of laboratory results Abnormal [facility] Lymphocytes (Bld) [#/Vol] 0.9 10*3/uL Low [facility] Lymphocytes/100 WBC (Bld) 16.2 % [facility] MCH (RBC) [Entitic mass] 32.9 pg 27 - 34 pg [facility] MCHC (RBC) [Mass/Vol] 33.2 g/dL 32 - 3 6 g/dL [facility] MCV (RBC) [Entitic vol] 99 fL 80 - 100 fL [facility] Monocytes (Bld) [#/Vol] 0.4 10*3/uL [facility] Monocytes/100 WBC (Bld) 7.9 % [facility] Neutrophils (Bld) [#/Vol] 4.1 10*3/uL [facility] Neutrophils/100 WBC (Bld) 73.8 % [facility] Platelet mean volume (Bld) [Entitic vol] 7.1 fL 7 - 12 fL [facility] Platelets (Bld) [#/Vol] 118 10*3/uL Low [facility] RBC (Bld) [#/Vol] 3.08 10*6/uL Low [facility] WBC corrected for nucl RBC Auto (Bld) [#/Vol] 5.6 [facility] ECG 12 leadon 04-11-2023 TRACEMASTERVUE [facility] MAGNESIUMon 04-11-2023 Magnesium [Mass/Vol] 2.2 mg/dL Normal 1.8-2.6 [facility] Comment on above: Performed By: #### Janine ESTRADA, 11238-0, CMP #### [facility] ([id number]) [address] [facility], [address] [place] [address] Magnesium [Mass/Vol] 1.6 mg/dL Low 1.8-2.6 [facility] Comment on above: Performed By: #### Janine ESTRADA, 34041-4, CMP #### [facility] ([id number]) [address], [address] [place] [address] Magnesiumon 04-11-2023 Magnesium [Mass/Vol] 2.2 mg/dL 1.8 - 2 .6 mg/dL [facility] Magnesium [Mass/Vol] 1.6 mg/dL Low 1.8 - 2 .6 mg/dL [facility] Magnesium [Mass/Vol]on 04-11 [facility] No Panel Informationon 04-11 Interpretation and review of laboratory results Abnormal [facility] BASIC METABOLIC PANLon 04-10 Anion gap [Moles/Vol] 10 mmol/L Normal 5-15 [facility] Comment on above: Performed By: #### Janine ESTRADA, 70159-7, CMP #### [facility] ([id number]) [address], [address] [place] [address] Calcium [Mass/Vol] 8.5 mg/dL Normal 8.5-10.5 [facility] Comment on above: Performed By: #### C BCA, 98544-8, CMP #### [facility] ([id number]) [address], [address] [place] [address] Chloride [Moles/Vol] 110 mmol/L High 98-109 [facility] Comment on above: Performed By: #### C BCA, 19366-4, CMP #### [facility] ([id number]) [address], [address] [place] [address] CO2 [Moles/Vol] 24 mmol/L Normal 22-32 [facility] Comment on above: Performed By: #### C BCA, 53593-9, CMP #### [facility] ([id number]) [address], [address] [place] [address] Creatinine [Mass/Vol] 0.68 mg/dL Normal 0.60-1.30 [facility] Comment on above: Result Comment: METH OD TRACEABLE TO IDMS STANDARD Performed By: #### C BCA, 32134-7, CMP #### [facility] ([id number]) [address], [address] [place] [address] eGFR (CKD-EPI) NON-RACE DEPENDENT >90 Normal >59 [facility] Comment on above: Result Comment: Reported eGFR is based on the CKD-EPI 2020 equation that does not use a race coefficient. Performed By: #### C BCA, 33312-4, CMP #### [facility] ([id number]) [address], [address] [place] [address] Glucose [Mass/Vol] 77 mg/dL Normal 65-99 [facility] Comment on above: Performed By: #### C BCA, 13337-1, CMP #### [facility] ([id number]) [address], [address] [place] [address] Potassium [Moles/Vol] 4.0 mmol/L Normal 3.5-5.0 [facility] Comment on above: Performed By: #### C BCA, 63899-0, CMP #### [facility] ([id number]) [address], [address] [place] [address] Sodium [Moles/Vol] 144 mmol/L Normal 134-146 [facility] Comment on above: Performed By: #### Janine BCA, 17998-4, CMP #### [facility] ([id number]) [address], [address] [place] [address] Urea nitrogen [Mass/Vol] 17 mg/dL Normal 5-27 [facility] Comment on above: Performed By: #### Janine BCA, 86076-6, CMP #### [facility] ([id number]) [address], [address] [place] [address] Basic Metabolic Panelon 0 Anion gap [Moles/Vol] 10 mmol/L 5 - 15 mmol/L [facility] Calcium [Mass/Vol] 8.5 mg/dL 8.5 - 10. 5 mg/dL [facility] Chloride [Moles/Vol] 110 mmol/L High 98 - 10 9 mmol/L [facility] CO2 [Moles/Vol] 24 mmol/L 22 - 32 mmol/L [facility] Creatinine [Mass/Vol] 0.68 mg/dL 0.60 - 1.30 mg/dL [facility] eGFR (CKD-EPI)non-race dependent - PINF [facility] Glucose [Mass/Vol] 77 mg/dL 65 - 99 mg/dL [facility] Interpretation and review of laboratory results Abnormal [facility] Potassium [Moles/Vol] 4.0 mmol/L 3.5 - 5.0 mmol/L [facility] Sodium [Moles/Vol] 144 mmol/L 134 - 146 mmol/L [facility] Urea nitrogen [Mass/Vol] 17 mg/dL 5 - 27 mg/dL [facility] CBC AND AUTO DIFFon 04-10-19 ABSOLUTE BASOPHIL 0.0 X10E9/L Normal 0.0-0.2 [facility] Comment on above: Performed By: #### Janine ESTRADA, 24809-3, CMP #### [facility] ([id number]) [address], [address] [place] [address] ABSOLUTE NEUTROPHIL 6.0 X10E9/L Normal 1.5-6.6 [facility] Comment on above: Performed By: #### Janine ESTRADA, 92998-1, CMP #### [facility] ([id number]) [address], [facility] [address] [place] [address] Basophils/100 WBC (Bld) 0.4 % Normal [facility] Comment on above: Performed By: #### Janine ESTRADA, 58989-4, CMP #### [facility] ([id number]) [address], [address] [place] [address] Eosinophils (Bld) [#/Vol] 0.0 10*3/uL Normal 0.0-0.4 [facility] Comment on above: Performed By: #### Janine ESTRADA, 56810-2, CMP #### [facility] ([id number]) [address], [address] [place] [address] Eosinophils/100 WBC (Bld) 0.5 % Normal [facility] Comment on above: Performed By: #### Janine ESTRADA, 72603-0, CMP #### [facility] ([id number]) [address], [address] [place] [address] Erythrocyte distribution width (RBC) [Ratio] 13.3 % Normal 11.5-15.0 [facility] Comment on above: Performed By: #### Janine ESTRADA, 77929-8, CMP #### [facility] ([id number]) [address], [address] [place] [address] Hematocrit (Bld) [Volume fraction] 31.2 % Low 39-49 [facility] Comment on above: Performed By: #### Janine ESTRADA, 70031-5, CMP #### [facility] ([id number]) [address], [facility] [address] [place] [address] Hemoglobin (Bld) [Mass/Vol] 10.8 g/dL Low 13.0-17.0 [facility] Comment on above: Performed By: #### Janine ESTRADA, 03319-1, CMP #### [facility] ([id number]) [address], [facility] [address] [place] [address] Lymphocytes (Bld) [#/Vol] 1.2 10*3/uL Normal 1.0-3.5 [facility] Comment on above: Performed By: #### Janine ESTRADA, 04846-1, CMP #### [facility] ([id number]) [address], [address] [address] Lymphocytes/100 WBC (Bld) 15.1 % Normal [facility] Comment on above: Performed By: #### Janine ESTRADA, 30011-9, CMP #### [facility] ([id number]) [address], [address] [address] MCH (RBC) [Entitic mass] 33.6 pg Normal 27-34 [facility] Comment on above: Performed By: #### Janine ESTRADA, 72346-9, CMP #### [facility] ([id number]) [address], [address] [address] MCHC (RBC) [Mass/Vol] 34.5 g/dL Normal 32-36 [facility] Comment on above: Performed By: #### Janine ESTRADA, 94898-4, CMP #### [facility] ([id number]) [address] [address] MCV (RBC) [Entitic vol] 97 fL Normal 80-100 [facility] Comment on above: Performed By: #### Janine ESTRADA, 86512-6, CMP #### [facility] ([id number]) [address], [address] [place] [address] Monocytes (Bld) [#/Vol] 0.6 10*3/uL Normal 0-0.9 [facility] Comment on above: Performed By: #### Janine ESTRADA, 91668-9, CMP #### [facility] ([id number]) [address], [address] [place] [address] Monocytes/100 WBC (Bld) 7.7 % Normal [facility] Comment on above: Performed By: #### Janine ESTRADA, 68397-8, CMP #### [facility] ([id number]) [address], [address] [place] [address] Neutrophils/100 WBC (Bld) 76.3 % Normal [facility] Comment on above: Performed By: #### Janine ESTRADA, 01873-5, CMP #### [facility] ([id number]) [address], [address] [place] [address] Platelet mean volume (Bld) [Entitic vol] 7.2 fL Normal 7-12 [facility] Comment on above: Performed By: #### Janine ESTRADA, 87785-2, CMP #### [facility] ([id number]) [address], [address] [place] [address] Platelets (Bld) [#/Vol] 148 10*3/uL Low 150-450 [facility] Comment on above: Performed By: #### Janine ESTRADA, 11549-8, CMP #### [facility] ([id number]) [address], [address] [place] [address] RBC COUNT 3.21 X10E12/L Low 4.10-5.70 [facility] Comment on above: Performed By: #### Janine ESTRADA, 64345-4, CMP #### [facility] ([id number]) [address], [address] [place] [address] WBC (Bld) [#/Vol] 7.8 10*3/uL Normal 4.0-11.0 [facility] Comment on above: Performed By: #### Janine ESTRADA, 59116-5, CMP #### [facility] ([id number]) [address], [address] [place] [address] CBC auto differentialon Basophils (Bld) [#/Vol] 0.0 10*3/uL [facility] Basophils/100 WBC (Bld) 0.4 % [facility] Eosinophils (Bld) [#/Vol] 0.0 10*3/uL [facility] Eosinophils/100 WBC (Bld) 0.5 % [facility] Erythrocyte distribution width (RBC) [Ratio] 13.3 % 11.5 - 15.0 % [facility] Hematocrit (Bld) [Volume fraction] 31.2 % Low 39 - 49 % [facility] Hemoglobin (Bld) [Mass/Vol] 10.8 g/dL Low 13.0 - 17.0 g/dL [facility] Interpretation and review of laboratory results Abnormal [facility] Lymphocytes (Bld) [#/Vol] 1.2 10*3/uL [facility] Lymphocytes/100 WBC (Bld) 15.1 % [facility] MCH (RBC) [Entitic mass] 33.6 pg 27 - 34 pg [facility] MCHC (RBC) [Mass/Vol] 34.5 g/dL 32 - 3 6 g/dL [facility] MCV (RBC) [Entitic vol] 97 fL 80 - 100 fL [facility] Monocytes (Bld) [#/Vol] 0.6 10*3/uL [facility] Monocytes/100 WBC (Bld) 7.7 % [facility] Neutrophils (Bld) [#/Vol] 6.0 10*3/uL [facility] Neutrophils/100 WBC (Bld) 76.3 % [facility] Platelet mean volume (Bld) [Entitic vol] 7.2 fL 7 - 12 fL [facility] Platelets (Bld) [#/Vol] 148 10*3/uL Low [facility] RBC (Bld) [#/Vol] 3.21 10*6/uL Low [facility] WBC corrected for nucl RBC Auto (Bld) [#/Vol] 7.8 [facility] FL SMALL BOWELon 04-10-2023 FL SMALL BOWEL FL SMALL BOWEL FL SMALL BOWEL HISTORY: Small bowel obstruction COMPARISON: CT abdomen/pelvis 04/07/2023 FINDINGS: Images: 5 Photo Manager view shows a nonobstructive bowel gas pattern. [...] Landa MD on 04/10/2023 3:20 PM Normal [facility] MAGNESIUMon 04-10-2023 Magnesium [Mass/Vol] 1.9 mg/dL Normal 1.8-2.6 [facility] Comment on above: Performed By: #### C SEAN, 90778-0, CMP #### [facility] ([id number]) [address] [place] [address], [address] [place] [address] Magnesiumon 04-10-2023 Magnesium [Mass/Vol] 1.9 mg/dL 1.8 - 2 .6 mg/dL [facility] No Panel Informationon 04-10 [facility] PHOSPHORUSon 04-10-2023 Phosphate [Mass/Vol] 2.8 mg/dL Normal 2.4-4.9 [facility] Comment on above: Performed By: #### C SEAN, 08850-7, CMP #### [facility] ([id number]) [address], [address] [place] [address] Phosphoruson 04-10-2023 Phosphate [Mass/Vol] 2.8 mg/dL 2.4 - 4 .9 mg/dL [facility] RF Small bowel Views W contr ast Lexie 04-10-2023 [facility]APACS [facility] Radiology Study observation (narrative) [facility] RF Small bowel Views W contr ast POOrdered By: Stevie Landa on 04-10-2023 [facility] Work Phone: XR CHEST 1 [...] Irwin Hou on 04/10/2023 2:13 PM Normal [facility] XR Chest Single viewon 04-10 [facility] Radiology Study observation (narrative) [facility] XR Chest Single viewOrdered By: Irwin Hou on 04-10-2023 [facility] Work Phone: APTTon 04-09-2023 aPTT Coag (PPP) [Time] 29 s Pr [facility] BASIC METABOLIC PANLon 04-09 Anion gap [Moles/Vol] 10 mmol/L Normal 5-15 [facility] Comment on above: Performed By: #### C BCA, BMP, 07760-1, 2777-1, 97341-9, FEPR, THYR, 2276-4, 2284-8, 2132-9 #### [facility] ([id number]) [address], [address] [place] [address] Calcium [Mass/Vol] 8.4 mg/dL Low 8.5-10.5 [facility] Comment on above: Performed By: #### C BCA, BMP, 29628-4, 2777-1, 15003-5, FEPR, THYR, 2276-4, 2284-8, 2131-11 #### [facility] ([id number]) [address], [address] [place] [address] Chloride [Moles/Vol] 110 mmol/L High 98-109 [facility] Comment on above: Performed By: #### C BCA, BMP, 69305-3, 2777-1, 33235-7, FEPR, THYR, 2276-4, 2284-8, 2131-11 #### [facility] ([id number]) [address], [address] [place] [address] CO2 [Moles/Vol] 25 mmol/L Normal 22-32 [facility] Comment on above: Performed By: #### C BCA, BMP, 83089-1, 7-1, 71866-1, FEPR, THYR, 2276-4, 2284-8, 2131-11 #### [facility] ([id number]) [address], [address] [place] [address] Creatinine [Mass/Vol] 0.78 mg/dL Normal 0.60-1.30 [facility] Comment on above: Result Comment: METH OD TRACEABLE TO IDMS STANDARD Performed By: #### C BCA, BMP, 80296-9, 2777-1, 82696-6, FEPR, THYR, 2276-4, 2284-8, 2131-11 #### [facility] ([id number]) [address], [address] [place] [address] eGFR (CKD-EPI) NON-RACE DEPENDENT >90 Normal >59 [facility] Comment on above: Result Comment: Reported eGFR is based on the CKD-EPI 2020 equation that does not use a race coefficient. Performed By: #### C BCA, BMP, 44849-9, 2777-1, 92811-0, FEPR, THYR, 2276-4, 2284-8, 2131-11 #### [facility] ([id number]) [address], [address] [place] [address] Glucose [Mass/Vol] 76 mg/dL Normal 65-99 [facility] Comment on above: Performed By: #### C BCA, BMP, 47557-0, 7-1, 63117-4, FEPR, THYR, 2276-4, 2284-8, 2131-11 #### [facility] ([id number]) [address], [address] [place] [address] Potassium [Moles/Vol] 4.0 mmol/L Normal 3.5-5.0 [facility] Comment on above: Performed By: #### C BCA, BMP, 99228-4, 7-1, 28878-7, FEPR, THYR, 2276-4, 2284-8, 2131-11 #### [facility] ([id number]) [address], [address] [place] [address] Sodium [Moles/Vol] 145 mmol/L Normal 134-146 [facility] Comment on above: Performed By: #### C BCA, BMP, 53091-4, 2776-1, 91957-2, FEPR, THYR, 2276-4, 2284-8, 2131-11 #### [facility] ([id number]) [address], [address] [place] [address] Urea nitrogen [Mass/Vol] 19 mg/dL Normal 5-27 [facility] Comment on above: Performed By: #### C BCA, BMP, 63466-3, 7-1, 80086-8, FEPR, THYR, 2276-4, 2284-8, 2131-11 #### [facility] ([id number]) [address], [address] [place] [address] Basic Metabolic Panelon Anion gap [Moles/Vol] 10 mmol/L 5 - 15 mmol/L [facility] Calcium [Mass/Vol] 8.4 mg/dL Low 8.5 - 10. 5 mg/dL [facility] Chloride [Moles/Vol] 110 mmol/L High 98 - 10 9 mmol/L [facility] CO2 [Moles/Vol] 25 mmol/L 22 - 32 mmol/L [facility] Creatinine [Mass/Vol] 0.78 mg/dL 0.60 - 1.30 mg/dL [facility] eGFR (CKD-EPI)non-race dependent - PINF [facility] Glucose [Mass/Vol] 76 mg/dL 65 - 99 mg/dL [facility] Potassium [Moles/Vol] 4.0 mmol/L 3.5 - 5.0 mmol/L [facility] Sodium [Moles/Vol] 145 mmol/L 134 - 146 mmol/L [facility] Urea nitrogen [Mass/Vol] 19 mg/dL 5 - 27 mg/dL [facility] CBC AND AUTO DIFFon 04-09-19 ABSOLUTE BASOPHIL 0.0 X10E9/L Normal 0.0-0.2 [facility] Comment on above: Performed By: #### C BCA, BMP, 91808-3, 7-1, 27753-8, FEPR, THYR, 6-4, 2283-8, 2131-11 #### [facility] ([id number]) [address], [address] [place] [address] ABSOLUTE NEUTROPHIL 5.7 X10E9/L Normal 1.5-6.6 [facility] Comment on above: Performed By: #### C BCA, BMP, 79797-5, 7-1, 36377-6, FEPR, THYR, 6-4, 2283-8, 2131-11 #### [facility] ([id number]) [address], [address] [place] [address] Basophils/100 WBC (Bld) 0.3 % Normal [facility] Comment on above: Performed By: #### C BCA, BMP, 25488-8, 2776-1, 58168-0, FEPR, THYR, 2276-4, 2284-8, 2131-11 #### [facility] ([id number]) [address], [address] [place] [address] Eosinophils (Bld) [#/Vol] 0.1 10*3/uL Normal 0.0-0.4 [facility] Comment on above: Performed By: #### C BCA, BMP, 53827-5, 2776-, 24049-0, FEPR, THYR, 2276-4, 2284-8, 2131-11 #### [facility] ([id number]) [address], [address] [place] [address] Eosinophils/100 WBC (Bld) 1.2 % Normal [facility] Comment on above: Performed By: #### C BCA, BMP, 65159-9, 2776-, 04462-7, FEPR, THYR, 2276-4, 2284-8, 2131-11 #### [facility] ([id number]) [address], [address] [place] [address] Erythrocyte distribution width (RBC) [Ratio] 13.4 % Normal 11.5-15.0 [facility] Comment on above: Performed By: #### C BCA, BMP, 23009-3, 2776-, 32395-9, FEPR, THYR, 2276-4, 2284-8, 2131-11 #### [facility] ([id number]) [address], [address] [place] [address] Hematocrit (Bld) [Volume fraction] 32.0 % Low 39-49 [facility] Comment on above: Performed By: #### C BCA, BMP, 18153-0, 2777-1, 36526-2, FEPR, THYR, 2276-4, 2284-8, 2131-11 #### [facility] ([id number]) [address], [address] [place] [address] Hemoglobin (Bld) [Mass/Vol] 10.9 g/dL Low 13.0-17.0 [facility] Comment on above: Performed By: #### C BCA, BMP, 99621-9, 2776-1, 54478-7, FEPR, THYR, 2276-4, 2284-8, 2131-11 #### [facility] ([id number]) [address], [address] [place] [address] Lymphocytes (Bld) [#/Vol] 1.4 10*3/uL Normal 1.0-3.5 [facility] Comment on above: Performed By: #### C BCA, BMP, 68977-6, 2776-1, 90664-1, FEPR, THYR, 2276-4, 2284-8, 2131-11 #### [facility] ([id number]) [address], [facility] [address] [place] [address] Lymphocytes/100 WBC (Bld) 17.9 % Normal [facility] Comment on above: Performed By: #### C BCA, BMP, 07927-6, 2776-1, 07944-0, FEPR, THYR, 2276-4, 2284-8, 2131-11 #### [facility] ([id number]) [address], [address] [place] [address] MCH (RBC) [Entitic mass] 33.4 pg Normal 27-34 [facility] Comment on above: Performed By: #### C BCA, BMP, 37199-1, 7-1, 77300-7, FEPR, THYR, 2276-4, 2284-8, 2131-11 #### [facility] ([id number]) [address], [address] [place] [address] MCHC (RBC) [Mass/Vol] 33.9 g/dL Normal 32-36 [facility] Comment on above: Performed By: #### C BCA, BMP, 61391-0, 7-1, 72027-7, FEPR, THYR, 2276-4, 2284-8, 9 #### [facility] ([id number]) [address], [address] [place] [address] MCV (RBC) [Entitic vol] 99 fL Normal 80-100 [facility] Comment on above: Performed By: #### C BCA, BMP, 71349-3, 2776-, 76267-9, FEPR, THYR, 2276-4, 2284-8, 2131-11 #### [facility] ([id number]) [address], [address] [place] [address] Monocytes (Bld) [#/Vol] 0.5 10*3/uL Normal 0-0.9 [facility] Comment on above: Performed By: #### C BCA, BMP, 60382-1, 2776-1, 47726-0, FEPR, THYR, 2276-4, 2284-8, 2131-11 #### [facility] ([id number]) [address], [address] [place] [address] Monocytes/100 WBC (Bld) 6.5 % Normal [facility] Comment on above: Performed By: #### C BCA, BMP, 57972-7, 2776-1, 52791-8, FEPR, THYR, 2276-4, 2284-8, 2131-11 #### [facility] ([id number]) [address], [address] [place] [address] Neutrophils/100 WBC (Bld) 74.1 % Normal [facility] Comment on above: Performed By: #### C BCA, BMP, 40350-3, 2777-1, 38269-0, FEPR, THYR, 2276-4, 2284-8, 2131-11 #### [facility] ([id number]) [address], [address] [place] [address] Platelet mean volume (Bld) [Entitic vol] 7.2 fL Normal 7-12 [facility] Comment on above: Performed By: #### C BCA, BMP, 45655-6, 2777-1, 91849-7, FEPR, THYR, 2276-4, 2284-8, 2131-11 #### [facility] ([id number]) [address], [address] [place] [address] Platelets (Bld) [#/Vol] 153 10*3/uL Normal 150-450 [facility] Comment on above: Performed By: #### C BCA, BMP, 97230-8, 7-1, 44681-0, FEPR, THYR, 2276-4, 2284-8, 2131-11 #### [facility] ([id number]) [address], [address] [place] [address] RBC COUNT 3.25 X10E12/L Low 4.10-5.70 [facility] Comment on above: Performed By: #### C BCA, BMP, 12210-8, 2777-1, 68987-0, FEPR, THYR, 2276-4, 2284-8, 2131-11 #### [facility] ([id number]) [address], [address] [place] [address] WBC (Bld) [#/Vol] 7.8 10*3/uL Normal 4.0-11.0 [facility] Comment on above: Performed By: #### C BCA, BMP, 30370-7, 2777-1, 72303-7, FEPR, THYR, 2276-4, 2284-8, 2131-11 #### [facility] ([id number]) [address], [address] [place] [address] CBC auto differentialon Basophils (Bld) [#/Vol] 0.0 10*3/uL [facility] Basophils/100 WBC (Bld) 0.3 % [facility] Eosinophils (Bld) [#/Vol] 0.1 10*3/uL [facility] Eosinophils/100 WBC (Bld) 1.2 % [facility] Erythrocyte distribution width (RBC) [Ratio] 13.4 % 11.5 - 15.0 % [facility] Hematocrit (Bld) [Volume fraction] 32.0 % Low 39 - 49 % [facility] Hemoglobin (Bld) [Mass/Vol] 10.9 g/dL Low 13.0 - 17.0 g/dL [facility] Interpretation and review of laboratory results Abnormal [facility] Lymphocytes (Bld) [#/Vol] 1.4 10*3/uL [facility] Lymphocytes/100 WBC (Bld) 17.9 % [facility] MCH (RBC) [Entitic mass] 33.4 pg 27 - 34 pg [facility] MCHC (RBC) [Mass/Vol] 33.9 g/dL 32 - 3 6 g/dL [facility] MCV (RBC) [Entitic vol] 99 fL 80 - 100 fL [facility] Monocytes (Bld) [#/Vol] 0.5 10*3/uL [facility] Monocytes/100 WBC (Bld) 6.5 % [facility] Neutrophils (Bld) [#/Vol] 5.7 10*3/uL [facility] Neutrophils/100 WBC (Bld) 74.1 % [facility] Platelet mean volume (Bld) [Entitic vol] 7.2 fL 7 - 12 fL [facility] Platelets (Bld) [#/Vol] 153 10*3/uL [facility] RBC (Bld) [#/Vol] 3.25 10*6/uL Low [facility] WBC corrected for nucl RBC Auto (Bld) [#/Vol] 7.8 [facility] Cobalamin (Vitamin B12) [Mas s/Vol]on 04-09-2023 Interpretation and review of laboratory results Abnormal [facility] FERRITINon 04-09-2023 Ferritin [Mass/Vol] 72 ng/mL Normal 24-336 [facility] Comment on above: Performed By: #### C SEAN, 02180-7, CMP #### [facility] ([id number]) [address], [address] [place] [address] Ferritinon 04-09-2023 Ferritin [Mass/Vol] 72 ng/mL 24 - 336 ng/mL [facility] Ferritin [Mass/Vol]on 2023 [facility] Folateon 04-09-2023 Folate [Mass/Vol] ng/mL 5.8 - PINF ng/mL [facility] Folate [Mass/Vol]on 04-09-19 [facility] FOLIC ACID >25.0 Normal >5.8 [facility] Comment on above: Result Comment: NEW REFERENCE RANGE Performed By: #### C SEAN, 04309-1, CMP #### [facility] ([id number]) [address], [address] [place] [address] IRON PROFILEon 04-09-2023 Iron [Mass/Vol] 35 ug/dL Low 50-212 [facility] Comment on above: Performed By: #### C BCA, BMP, 65655-7, 7-1, 87975-1, FEPR, THYR, 2276-4, 2284-8, 2131-11 #### [facility] ([id number]) [address], [address] [place] [address] IRON BINDING 190 ug/dL Low 250-425 [facility] Comment on above: Performed By: #### C BCA, BMP, 78333-4, 2777-1, 55812-3, FEPR, THYR, 2276-4, 2284-8, 9 #### [facility] ([id number]) [address], [address] [place] [address] IRON SATURATION 18 % SATURATION Low 20-50 [facility] Comment on above: Performed By: #### C BCA, BMP, 02370-1, 2777-1, 02804-2, FEPR, THYR, 6-4, 4-8, 2131-11 #### [facility] ([id number]) [address], [address] [place] [address] Iron and TIBCon 04-09-2023 Interpretation and review of laboratory results Abnormal [facility] Iron [Mass/Vol] 35 ug/dL Low 50 - 212 ug/dL [facility] Iron binding capacity [Mass/Vol] 190 ug/dL Low 250 - 425 ug/dL [facility] Iron saturation [Mass fraction] 18 Low [facility] MAGNESIUMon 04-09-2023 Magnesium [Mass/Vol] 2.3 mg/dL Normal 1.8-2.6 [facility] Comment on above: Performed By: #### C BCA, 76157-2, CMP #### [facility] ([id number]) [address], [address] [place] [address] Magnesium [Mass/Vol] 1.5 mg/dL Low 1.8-2.6 [facility] Comment on above: Performed By: #### C BCA, BMP, 92690-1, 7-1, 45229-9, FEPR, THYR, 6-4, 4-8, 2131-11 #### [facility] ([id number]) [address], [address] [place] [address] Magnesiumon 04-09-2023 Magnesium [Mass/Vol] 2.3 mg/dL 1.8 - 2 .6 mg/dL [facility] Magnesium [Mass/Vol] 1.5 mg/dL Low 1.8 - 2 .6 mg/dL [facility] No Panel Informationon 04-09 [facility] Interpretation and review of laboratory results Abnormal [facility] PHOSPHORUSon 04-09-2023 Phosphate [Mass/Vol] 3.1 mg/dL Normal 2.4-4.9 [facility] Comment on above: Performed By: #### C BCA, 67012-7, CMP #### [facility] ([id number]) [address], [address] [place] [address] Phosphate [Mass/Vol] 2.3 mg/dL Low 2.4-4.9 [facility] Comment on above: Performed By: #### C BCA, BMP, 85362-2, 7-1, 83394-3, FEPR, THYR, 2276-4, 2284-8, 2131-11 #### [facility] ([id number]) [address] [place] [address] Phosphoruson 04-09-2023 Phosphate [Mass/Vol] 3.1 mg/dL 2.4 - 4 .9 mg/dL [facility] Phosphate [Mass/Vol] 2.3 mg/dL Low 2.4 - 4 .9 mg/dL [facility] THYROID PROFILEon 04-09-2023 Free T4 [Mass/Vol] 0.87 ng/dL Normal 0.61-1.60 [facility] Comment on above: Performed By: #### C BCA, BMP, 32929-4, 7-1, 93183-7, FEPR, THYR, 2276-4, 2284-8, 2131-11 #### [facility] ([id number]) [address], [address] [place] [address] TSH 1.03 uIU/mL Normal 0.49-4.67 [facility] Comment on above: Performed By: #### C BCA, BMP, 38019-7, 7-1, 41181-3, FEPR, THYR, 2276-4, 2284-8, 2131-11 #### [facility] ([id number]) [address], [address] [place] [address] Thyroid profile includes TSH FT4on 02-05-2024 Free T4 [Mass/Vol] 0.87 ng/dL 0.61 - 1. 60 ng/dL [facility] TSH Qn 1.03 m[IU]/L [facility] VITAMIN B12on 04-09-2023 Cobalamin (Vitamin B12) [Mass/Vol] 157 pg/mL Low 180-914 [facility] Comment on above: Performed By: #### C SEAN, 97898-1, CMP #### [facility] ([id number]) [address], [address] [place] [address] Vitamin B12on 04-09-2023 Cobalamin (Vitamin B12) [Mass/Vol] 157 pg/mL Low 180 - 914 pg/mL [facility] aPTT Coag (PPP) [Time]on aPTT Coag (Bld) [Time] 29 s Normal 26-37 [facility] Comment on above: Performed By: #### C BCA, BMP, 05878-0, 2777-1, 24231-4, FEPR, THYR, 2276-4, 2284-8, 2132-9 #### [facility] ([id number]) [address], [address] [place] [address] [facility] CBC AND AUTO DIFFon 04-08-19 24 ABSOLUTE BASOPHIL 0.1 X10E9/L Normal 0.0-0.2 [facility] Comment on above: Performed By: #### Janine ESTRADA, 89875-4, CMP #### [facility] ([id number]) [address], [address] [place] [address] ABSOLUTE NEUTROPHIL 6.1 X10E9/L Normal 1.5-6.6 [facility] Comment on above: Performed By: #### Janine ESTRADA, 36591-7, CMP #### [facility] ([id number]) [address], [address] [place] [address] Basophils/100 WBC (Bld) 0.5 % Normal [facility] Comment on above: Performed By: #### Janine ESTRADA, 22544-0, CMP #### [facility] ([id number]) [address], [address] [place] [address] Eosinophils (Bld) [#/Vol] 0.1 10*3/uL Normal 0.0-0.4 [facility] Comment on above: Performed By: #### Janine ESTRADA, 94758-5, CMP #### [facility] ([id number]) [address], [facility] [address] [place] [address] Eosinophils/100 WBC (Bld) 0.9 % Normal [facility] Comment on above: Performed By: #### Janine ESTRADA, 11016-2, CMP #### [facility] ([id number]) [address], [facility] [address] [place] [address] Erythrocyte distribution width (RBC) [Ratio] 13.5 % Normal 11.5-15.0 [facility] Comment on above: Performed By: #### Janine ESTRADA, 41148-7, CMP #### [facility] ([id number]) [address], [facility] [address] [place] [address] Hematocrit (Bld) [Volume fraction] 37.7 % Low 39-49 [facility] Comment on above: Performed By: #### Janine ESTRADA, 58555-3, CMP #### [facility] ([id number]) [address], [facility] [address] [place] [address] Hemoglobin (Bld) [Mass/Vol] 12.9 g/dL Low 13.0-17.0 [facility] Comment on above: Performed By: #### Janine ESTRADA, 71389-7, CMP #### [facility] ([id number]) [address], [address] [place] [address] Lymphocytes (Bld) [#/Vol] 3.1 10*3/uL Normal 1.0-3.5 [facility] Comment on above: Performed By: #### Janine ESTRADA, 77672-8, CMP #### [facility] ([id number]) [address], [address] [place] [address] Lymphocytes/100 WBC (Bld) 30.5 % Normal [facility] Comment on above: Performed By: #### C SEAN, 25217-8, CMP #### [facility] ([id number]) [address], [address] [place] [address] MCH (RBC) [Entitic mass] 33.3 pg Normal 27-34 [facility] Comment on above: Performed By: #### C SEAN, 89045-4, CMP #### [facility] ([id number]) [address], [address] [place] [address] MCHC (RBC) [Mass/Vol] 34.3 g/dL Normal 32-36 [facility] Comment on above: Performed By: #### Janine ESTRADA, 26474-8, CMP #### [facility] ([id number]) [address], [address] [place] [address] MCV (RBC) [Entitic vol] 97 fL Normal 80-100 [facility] Comment on above: Performed By: #### Janine ESTRADA, 60945-2, CMP #### [facility] ([id number]) [address], [address] [place] [address] Monocytes (Bld) [#/Vol] 0.9 10*3/uL Normal 0-0.9 [facility] Comment on above: Performed By: #### Janine ESTRADA, 17932-6, CMP #### [facility] ([id number]) [address], [address] [place] [address] Monocytes/100 WBC (Bld) 8.8 % Normal [facility] Comment on above: Performed By: #### Janine ESTRADA, 64581-7, CMP #### [facility] ([id number]) [address], [address] [place] [address] Neutrophils/100 WBC (Bld) 59.3 % Normal [facility] Comment on above: Performed By: #### Janine ESTRADA, 58623-6, CMP #### [facility] ([id number]) [address], [facility] [address] [place] [address] Platelet mean volume (Bld) [Entitic vol] 7.3 fL Normal 7-12 [facility] Comment on above: Performed By: #### Janine ESTRADA, 53780-9, CMP #### [facility] ([id number]) [address], [facility] [address] [place] [address] Platelets (Bld) [#/Vol] 224 10*3/uL Normal 150-450 [facility] Comment on above: Performed By: #### Janine ESTRADA, 69987-2, CMP #### [facility] ([id number]) [address], [address] [address] RBC COUNT 3.88 X10E12/L Low 4.10-5.70 [facility] Comment on above: Performed By: #### Janine ESTRADA, 42586-0, CMP #### [facility] ([id number]) [address], [address] [address] WBC (Bld) [#/Vol] 10.3 10*3/uL Normal 4.0-11.0 [facility] Comment on above: Performed By: #### Janine ESTRADA, 19736-9, CMP #### [facility] ([id number]) [address] [address] [place] [address] CBC auto differentialon Basophils (Bld) [#/Vol] 0.1 10*3/uL [facility] Basophils/100 WBC (Bld) 0.5 % [facility] Eosinophils (Bld) [#/Vol] 0.1 10*3/uL [facility] Eosinophils/100 WBC (Bld) 0.9 % [facility] Erythrocyte distribution width (RBC) [Ratio] 13.5 % 11.5 - 15.0 % [facility] Hematocrit (Bld) [Volume fraction] 37.7 % Low 39 - 49 % [facility] Hemoglobin (Bld) [Mass/Vol] 12.9 g/dL Low 13.0 - 17.0 g/dL [facility] Interpretation and review of laboratory results Abnormal [facility] Lymphocytes (Bld) [#/Vol] 3.1 10*3/uL [facility] Lymphocytes/100 WBC (Bld) 30.5 % [facility] MCH (RBC) [Entitic mass] 33.3 pg 27 - 34 pg [facility] MCHC (RBC) [Mass/Vol] 34.3 g/dL 32 - 3 6 g/dL [facility] MCV (RBC) [Entitic vol] 97 fL 80 - 100 fL [facility] Monocytes (Bld) [#/Vol] 0.9 10*3/uL [facility] Monocytes/100 WBC (Bld) 8.8 % [facility] Neutrophils (Bld) [#/Vol] 6.1 10*3/uL [facility] Neutrophils/100 WBC (Bld) 59.3 % [facility] Platelet mean volume (Bld) [Entitic vol] 7.3 fL 7 - 12 fL [facility] Platelets (Bld) [#/Vol] 224 10*3/uL [facility] RBC (Bld) [#/Vol] 3.88 10*6/uL Low [facility] WBC corrected for nucl RBC Auto (Bld) [#/Vol] 10.3 [facility] COMPREHENSIVE METABOLIC PANE Santiago 04-08-2023 Albumin [Mass/Vol] 4.1 g/dL Normal 3.2-5.3 [facility] Comment on above: Performed By: #### C BCA, 79954-2, CMP #### [facility] ([id number]) [address] [address] [place] [address] ALP [Catalytic activity/Vol] 128 U/L Normal 39-130 [facility] Comment on above: Performed By: #### C BCA, 13081-2, CMP #### [facility] ([id number]) [address], [address] [place] [address] ALT [Catalytic activity/Vol] 14 U/L Normal 0-40 [facility] Comment on above: Performed By: #### C BCA, 85505-6, CMP #### [facility] ([id number]) [address], [address] [place] [address] Anion gap [Moles/Vol] 10 mmol/L Normal 5-15 [facility] Comment on above: Performed By: #### C BCA, 35417-1, CMP #### [facility] ([id number]) [address], [address] [place] [address] AST [Catalytic activity/Vol] 15 U/L Normal 0-41 [facility] Comment on above: Performed By: #### C BCA, 15294-7, CMP #### [facility] ([id number]) [address], [address] [place] [address] Bilirubin [Mass/Vol] 0.6 mg/dL Normal 0.3-1.2 [facility] Comment on above: Performed By: #### C BCA, 71468-6, CMP #### [facility] ([id number]) [address], [address] [place] [address] Calcium [Mass/Vol] 9.1 mg/dL Normal 8.5-10.5 [facility] Comment on above: Performed By: #### C BCA, 66657-1, CMP #### [facility] ([id number]) [address], [address] [place] [address] Chloride [Moles/Vol] 104 mmol/L Normal 98-109 [facility] Comment on above: Performed By: #### C BCA, 95899-1, CMP #### [facility] ([id number]) [address], [address] [place] [address] CO2 [Moles/Vol] 30 mmol/L Normal 22-32 [facility] Comment on above: Performed By: #### C SEAN, 85419-6, CMP #### [facility] ([id number]) [address], [address] [place] [address] Creatinine [Mass/Vol] 1.04 mg/dL Normal 0.60-1.30 [facility] Comment on above: Result Comment: METH OD TRACEABLE TO IDMS STANDARD Performed By: #### C SEAN, 86079-9, CMP #### [facility] ([id number]) [address], [address] [place] [address] GFR/1.73 sq M.predicted among non-blacks MDRD (S/P/Bld) [Vol rate/Area] 79 mL/min/{1.73_m2} Normal >59 [facility] Comment on above: Result Comment: Reported eGFR is based on the CKD-EPI 2020 equation that does not use a race coefficient. Performed By: #### C SEAN, 22990-5, CMP #### [facility] ([id number]) [address], [address] [place] [address] Glucose [Mass/Vol] 95 mg/dL Normal 65-99 [facility] Comment on above: Performed By: #### Janine ESTRADA, 59211-3, CMP #### [facility] ([id number]) [address] [address] [place] [address] Potassium [Moles/Vol] 4.1 mmol/L Normal 3.5-5.0 [facility] Comment on above: Performed By: #### C SEAN, 79562-0, CMP #### [facility] ([id number]) [address], [address] [place] [address] Protein [Mass/Vol] 7.1 g/dL Normal 6.0-8.0 [facility] Comment on above: Performed By: #### C BCA, 30030-8, CMP #### [facility] ([id number]) [address], [address] [place] [address] Sodium [Moles/Vol] 144 mmol/L Normal 134-146 [facility] Comment on above: Performed By: #### C BCA, 21960-7, CMP #### [facility] ([id number]) [address], [address] [place] [address] Urea nitrogen [Mass/Vol] 19 mg/dL Normal 5-27 [facility] Comment on above: Performed By: #### C BCA, 60925-3, CMP #### [facility] ([id number]) [address], [address] [place] [address] Comprehensive metabolic pane santiago 04-08-2023 Albumin [Mass/Vol] 4.1 g/dL 3.2 - 5.3 g/dL [facility] ALP [Catalytic activity/Vol] 128 U/L 39 - 130 U/L [facility] ALT No additional P-5'-P [Catalytic activity/Vol] 14 U/L 0 - 40 U/L [facility] Anion gap [Moles/Vol] 10 mmol/L 5 - 15 mmol/L [facility] AST [Catalytic activity/Vol] 15 U/L 0 - 41 U/L [facility] Bilirubin [Mass/Vol] 0.6 mg/dL 0.3 - 1 .2 mg/dL [facility] Calcium [Mass/Vol] 9.1 mg/dL 8.5 - 10. 5 mg/dL [facility] Chloride [Moles/Vol] 104 mmol/L 98 - 10 9 mmol/L [facility] CO2 [Moles/Vol] 30 mmol/L 22 - 32 mmol/L [facility] Creatinine [Mass/Vol] 1.04 mg/dL 0.60 - 1.30 mg/dL [facility] eGFR (CKD-EPI)non-race dependent 79 - PINF [facility] Glucose [Mass/Vol] 95 mg/dL 65 - 99 mg/dL [facility] Potassium [Moles/Vol] 4.1 mmol/L 3.5 - 5.0 mmol/L [facility] Protein [Mass/Vol] 7.1 g/dL 6.0 - 8.0 g/dL [facility] Sodium [Moles/Vol] 144 mmol/L 134 - 146 mmol/L [facility] Urea nitrogen [Mass/Vol] 19 mg/dL 5 - 27 mg/dL [facility] Lactate (P simon) [Moles/Vol]o n 04-08-2023 LACTATE W/REFLEX 1.2 mmol/L Normal 0.4-2.[address] [facility] Comment on above: Result Comment: Result did not trigger repeat Lactate, re-order if needed. Performed By: #### C BCA, 82282-3, CMP #### [facility] ([id number]) [address], [address] [place] [address] [facility] Lactate w/ Reflexon 04-08-19 24 Lactate (P simon) [Moles/Vol] 1.2 mmol/L 0.4 - 2.0 mmol/L [facility] XR CHEST 1 VWon 04-08-2023 XR [...] Torres MD on 04/07/2023 10:32 PM Normal [facility] CBC AND AUTO DIFFon 04-07-19 24 ABSOLUTE BASOPHIL 0.0 X10E9/L Normal 0.0-0.2 [facility] Comment on above: Performed By: #### Janine ESTRADA CMP, 3039-3 #### [facility] ([id number]) [address] [place] [address] ABSOLUTE NEUTROPHIL 11.1 X10E9/L High 1.5-6.6 [facility] Comment on above: Performed By: #### Janine ESTRADA CMP, 3039-3 #### [facility] ([id number]) [address] [place] [address] Basophils/100 WBC (Bld) 0.3 % Normal [facility] Comment on above: Performed By: #### Janine ESTRADA CMP, 3039-05 #### [facility] ([id number]) [address] [place] [address] Eosinophils (Bld) [#/Vol] 0.1 10*3/uL Normal 0.0-0.4 [facility] Comment on above: Performed By: #### Janine ESTRADA CMP, 3039-05 #### [facility] ([id number]) [address] [place] [address] Eosinophils/100 WBC (Bld) 0.7 % Normal [facility] Comment on above: Performed By: #### Janine ESTRADA CMP, 3039-05 #### [facility] ([id number]) [address] [place] [address] Erythrocyte distribution width (RBC) [Ratio] 13.6 % Normal 11.5-15.0 [facility] Comment on above: Performed By: #### Janine ESTRADA CMP, 3039-05 #### [facility] ([id number]) [address] [place] [address] Hematocrit (Bld) [Volume fraction] 41.6 % Normal 39-49 [facility] Comment on above: Performed By: #### Janine ESTRADA CMP, 3039-3 #### [facility] ([id number]) [address] [place] [address] Hemoglobin (Bld) [Mass/Vol] 13.9 g/dL Normal 13.0-17.0 [facility] Comment on above: Performed By: #### Janine ESTRADA CMP, 0-3 #### [facility] ([id number]) [address] [place] [address] Lymphocytes (Bld) [#/Vol] 0.9 10*3/uL Low 1.0-3.5 [facility] Comment on above: Performed By: #### Janine ESTRADA CMP, 3 #### [facility] ([id number]) [address] [place] [address] Lymphocytes/100 WBC (Bld) 6.9 % Normal [facility] Comment on above: Performed By: #### Janine ESTRADA CMP, 3 #### [facility] ([id number]) [address] [place] [address] MCH (RBC) [Entitic mass] 32.9 pg Normal 27-34 [facility] Comment on above: Performed By: #### Janine ESTRADA CMP, 3 #### [facility] ([id number]) [address] [place] [address] MCHC (RBC) [Mass/Vol] 33.3 g/dL Normal 32-36 [facility] Comment on above: Performed By: #### Janine ESTRADA CMP, 3039-3 #### [facility] ([id number]) [address] [place] [address] MCV (RBC) [Entitic vol] 99 fL Normal 80-100 [facility] Comment on above: Performed By: #### Janine ESTRADA CMP, 3039-3 #### [facility] ([id number]) [address] [place] [address] Monocytes (Bld) [#/Vol] 0.8 10*3/uL Normal 0-0.9 [facility] Comment on above: Performed By: #### Janine ESTRADA CMP, 3040-3 #### [facility] ([id number]) [address] [place] [address] 39602 Monocytes/100 WBC (Bld) 5.9 % Normal [facility] Comment on above: Performed By: #### Janine ESTRADA CMP, 3039-05 #### [facility] ([id number]) [address] [place] [address] 74941 Neutrophils/100 WBC (Bld) 86.2 % Normal [facility] Comment on above: Performed By: #### Janine ESTRADA CMP, 3 #### [facility] ([id number]) [address] [place] [address] 81893 Platelet mean volume (Bld) [Entitic vol] 7.2 fL Normal 7-12 [facility] Comment on above: Performed By: #### Janine ESTRADA CMP, 3 #### [facility] ([id number]) [address] [place] [address] 78832 Platelets (Bld) [#/Vol] 227 10*3/uL Normal 150-450 [facility] Comment on above: Performed By: #### Janine ESTRADA CMP, 3039-3 #### [facility] ([id number]) [address] [place] [address] [place] [address] RBC COUNT 4.21 X10E12/L Normal 4.10-5.70 [facility] Comment on above: Performed By: #### Janine ESTRADA CMP, 3039-3 #### [facility] ([id number]) [address] [place] [address] 76231 WBC (Bld) [#/Vol] 12.9 10*3/uL High 4.0-11.0 [facility] Comment on above: Performed By: #### C BCA, CMP, 3039-3 #### [facility] ([id number]) [address] [place] [address] COMPREHENSIVE METABOLIC PANE [place] 04-07-2023 Albumin [Mass/Vol] 4.6 g/dL Normal 3.2-5.3 [facility] Comment on above: Performed By: #### C BCA, CMP, 3039-3 #### [facility] ([id number]) [address] [place] [address] 72753 ALP [Catalytic activity/Vol] 145 U/L High 39-130 [facility] Comment on above: Performed By: #### Janine BCA, CMP, 3039-3 #### [facility] ([id number]) [address] [place] [address] 04531 ALT [Catalytic activity/Vol] 22 U/L Normal 0-40 [facility] Comment on above: Performed By: #### C BCA, CMP, 3039-3 #### [facility] ([id number]) [address] [place] [address] 38622 Anion gap [Moles/Vol] 9 mmol/L Normal 5-15 [facility] Comment on above: Performed By: #### Janine BCA, CMP, 3039-3 #### [facility] ([id number]) [address] [place] [address] 68032 AST [Catalytic activity/Vol] 19 U/L Normal 0-41 [facility] Comment on above: Performed By: #### C BCA, CMP, 3039-3 #### [facility] ([id number]) [address] [place] [address] 05328 Bilirubin [Mass/Vol] 0.6 mg/dL Normal 0.3-1.2 [facility] Comment on above: Performed By: #### Janine BCA, CMP, 0-3 #### [facility] ([id number]) [address] [place] [address] 70210 Calcium [Mass/Vol] 9.3 mg/dL Normal 8.5-10.5 [facility] Comment on above: Performed By: #### C MAC ESTRADA, 3040-3 #### [facility] ([id number]) [address] [place] [address] 12975 Chloride [Moles/Vol] 100 mmol/L Normal 98-109 [facility] Comment on above: Performed By: #### C SEAN [facility], 3040-3 #### [facility] ([id number]) [address] [place] [address] 67192 CO2 [Moles/Vol] 27 mmol/L Normal 22-32 [facility] Comment on above: Performed By: #### C SEAN [facility], 3040-3 #### [facility] ([id number]) [address] [place] [address] 67111 Creatinine [Mass/Vol] 1.23 mg/dL High 0.70-1.20 [facility] Comment on above: Result Comment: METH OD TRACEABLE TO IDMS STANDARD Performed By: #### C SEAN [facility], 3040-3 #### [facility] ([id number]) [address] [place] [address] 50901 GFR/1.73 sq M.predicted among non-blacks MDRD (S/P/Bld) [Vol rate/Area] 64 mL/min/{1.73_m2} Normal >59 [facility] Comment on above: Result Comment: Reported eGFR is based on the CKD-EPI 2020 equation that does not use a race coefficient. Performed By: #### C MAC ESTRADA, 3040-3 #### [facility] ([id number]) [address] [place] [address] 26011 Glucose [Mass/Vol] 102 mg/dL High 65-99 [facility] Comment on above: Performed By: #### C SEAN CMP, 3040-3 #### [facility] ([id number]) [address] [place] [address] 28865 Potassium [Moles/Vol] 4.0 mmol/L Normal 3.5-5.0 [facility] Comment on above: Performed By: #### Janine ESTRADA CMP, 3040-3 #### [facility] ([id number]) [address] [place] [address] 25429 Protein [Mass/Vol] 8.2 g/dL High 6.0-8.0 [facility] Comment on above: Performed By: #### Janine ESTRADA [facility], 3040-3 #### [facility] ([id number]) [address] [place] [address] 91133 Sodium [Moles/Vol] 136 mmol/L Normal 134-146 [facility] Comment on above: Performed By: #### Janine ESTRADA [facility], 3040-3 #### [facility] ([id number]) [address] [place] [address] 43185 Urea nitrogen [Mass/Vol] 22 mg/dL Normal 5-27 [facility] Comment on above: Performed By: #### Janine ESTRADA [facility], 3040-3 #### [facility] ([id number]) [address] [place] [address] ABDOMEN AND PELVIS W CONT on [...] Shaffer MD on 04/07/2023 9:48 PM Normal [facility] LIPASEon 04-07-2023 Lipase [Catalytic activity/Vol] 39 U/L Normal 17-40 [facility] Comment on above: Performed By: #### C BCA, CMP, 3040-3 #### [facility] ([id number]) [address] [place] [address], [place] [address] PSA, Screeningon 03-21-2023 Prostatic Spec. Ag 0.30 ng/mL Normal 0.00-4.00 [facility] Comment on above: Result Comment: The Em ECLIA assay is used. Results obtained with different assay methods cannot be used interchangeably. Performed By: #### R EJEC, IPF, CDP #### [facility] [address] [place] [address] Program Planner: David Montez MD Cult,Bloodon 02-17-2023 Cult,Blood Specimen Description .BLOOD Special Requests Culture NO GROWTH 5 DAYS Report Status FINAL 02/16/2023 Normal [facility] Comment on above: Performed By: #### B MPX, PRCAL #### [facility] [address] [place] [address] Program Planner: Chencho Olvera MD BLOOD CULTUREon 02-15-2023 Bacteria identified Aer cx Nom (Bld) SPECIMEN NOTES fem stick CULTURE RESULTS NO GROWTH 5 DAYS Normal [facility] Comment on above: Performed By: #### 1 7928-3 #### [facility] ([id number]) [address] [facility] [place] [address] Basic Metab w/rfx MGon 02-13 Anion gap [Moles/Vol] 13 mmol/L Normal 9-17 [facility] Comment on above: Performed By: #### C BC, BMPX #### [facility] [employer] [address] [place] [address] Program Planner: Chencho Olvera MD Calcium [Mass/Vol] 8.2 mg/dL Low 8.6-10.4 [facility] Comment on above: Performed By: #### C BC, BMPX #### [facility] [employer] [address] [place] [address] Program Planner: Chencho Olvera MD Chloride [Moles/Vol] 101 mmol/L Normal 98-107 [facility] Comment on above: Performed By: #### C BC, BMPX #### [facility] [employer] [address] [place] [address]78 Program Planner: Chencho Olvera MD CO2 [Moles/Vol] 23 mmol/L Normal 20-31 [facility] Comment on above: Performed By: #### C BC, BMPX #### [facility] [employer] [address] [place] [address] Program Planner: Chencho Olvera MD Creatinine [Mass/Vol] 0.8 mg/dL Normal 0.7-1.2 [facility] Comment on above: Performed By: #### C BC, BMPX #### [facility] [employer] [address] [place] [address] Program Planner: Chencho Olvera MD GFR/1.73 sq M.predicted among non-blacks MDRD (S/P/Bld) [Vol rate/Area] mL/min/{1.73_m2} Normal >60 [facility] Comment on above: Result Comment: These [...] Performed By: #### C BC, BMPX #### [facility] [employer] [address] [place] [address] 367[address] Program Planner: Chencho Olvera MD Glucose [Mass/Vol] 104 mg/dL High 70-99 [facility] Comment on above: Performed By: #### C BC, BMPX #### [facility] [employer] [address] [place] [address] Program Planner: Chencho Olvera MD Potassium [Moles/Vol] 3.7 mmol/L Normal 3.7-5.3 [facility] Comment on above: Performed By: #### C BC, BMPX #### [address] [address] Program Planner: Chencho Olvera MD Sodium [Moles/Vol] 137 mmol/L Normal 135-144 [facility] Comment on above: Performed By: #### C BC, BMPX #### [facility] [employer] [address] [place] [address] 25884 Program Planner: Chencho Olvera MD Urea nitrogen [Mass/Vol] 12 mg/dL Normal 8-23 [facility] Comment on above: Performed By: #### C BC, BMPX #### [facility] [employer] [address] [place] [address] Program Planner: Chencho Olvera MD CBCon 02-13-2023 Erythrocyte distribution width (RBC) [Ratio] 12.5 % Normal 11.8-14.4 [facility] Comment on above: Performed By: #### C BC, BMPX #### [facility] [employer] [address] [place] [address] Program Planner: Chencho Olvera MD Hematocrit (Bld) [Volume fraction] 30.9 % Low 40.7-50.3 [facility] Comment on above: Performed By: #### C BC, BMPX #### [address] [address] Program Planner: Chencho Olvera MD Hemoglobin (Bld) [Mass/Vol] 9.8 g/dL Low 13.0-17.0 [facility] Comment on above: Performed By: #### C BC, BMPX #### [address] [address] Program Planner: Chencho Olvera MD MCH (RBC) [Entitic mass] 33.1 pg Normal 25.2-33.5 [facility] Comment on above: Performed By: #### C BC, BMPX #### [address] [address] Program Planner: Chencho Olvera MD MCHC (RBC) [Mass/Vol] 31.7 g/dL Normal 28.4-34.8 [facility] Comment on above: Performed By: #### C BC, BMPX #### [address] [address] Program Planner: Chencho Olvera MD MCV (RBC) [Entitic vol] 104.4 fL High 82.6-102.9 [facility] Comment on above: Performed By: #### C BC, BMPX #### [address] [address] Program Planner: Chencho Olvera MD NRBC Automated 0.0 per 100 WBC Normal 0.0 [facility] Comment on above: Performed By: #### C BC, BMPX #### [facility] [employer] [address] [place] [address] Program Planner: Chencho Olvera MD Platelet mean volume (Bld) [Entitic vol] 9.9 fL Normal 8.1-13.5 [facility] Comment on above: Performed By: #### C BC, BMPX #### [facility] [address] [place] [address] Program Planner: Chencho Olvera MD Platelets (Bld) [#/Vol] 142 10*3/uL Normal 138-453 [facility] Comment on above: Performed By: #### C BC, BMPX #### [address] [address] Program Planner: Chencho Olvera MD RBC (Bld) [#/Vol] 2.96 10*6/uL Low 4.21-5.77 [facility] Comment on above: Performed By: #### C BC, BMPX #### [facility] [address] [place] [address]34 Program Planner: Chencho Olvera MD WBC (Bld) [#/Vol] 7.9 10*3/uL Normal 3.5-11.3 [facility] Comment on above: Performed By: #### C BC, BMPX #### [address] [address] Program Planner: Chencho Olvera MD XR CHEST PORTABLEon 02-14-20 [...] Alex Alvarado MD 02/13/23 Final result Normal [facility] Basic Metab w/rfx MGon 02-12 Anion gap [Moles/Vol] 10 mmol/L Normal 9-17 [facility] Comment on above: Performed By: #### B LAWX, PRCAL #### [address] [address] Program Planner: Chencho Olvera MD Calcium [Mass/Vol] 8.2 mg/dL Low 8.6-10.4 [facility] Comment on above: Performed By: #### B MPX, PRCAL #### [address] [address] Program Planner: Chencho Olvera MD Chloride [Moles/Vol] 100 mmol/L Normal 98-107 [facility] Comment on above: Performed By: #### B LAWX, PRCAL #### [address] [address] Program Planner: Chencho Olvera MD CO2 [Moles/Vol] 26 mmol/L Normal 20-31 [facility] Comment on above: Performed By: #### B LAWX, PRCAL #### [facility] [employer] [address] [place] [address] Program Planner: Chencho Olvera MD Creatinine [Mass/Vol] 0.9 mg/dL Normal 0.7-1.2 [facility] Comment on above: Performed By: #### B LAWX, PRCAL #### [address] [address] Program Planner: Chencho Olvera MD GFR/1.73 sq M.predicted among non-blacks MDRD (S/P/Bld) [Vol rate/Area] mL/min/{1.73_m2} Normal >60 [facility] Comment on above: Result Comment: These [...] renal tubular secretion. Performed By: #### B LAWX PRCAL #### [facility] [employer] [address] [place] [address] Program Planner: Chencho Olvera MD Glucose [Mass/Vol] 96 mg/dL Normal 70-99 [facility] Comment on above: Performed By: #### B MPX, PRCAL #### [facility] [employer] [address] [place] [address] Program Planner: Chencho Olvera MD Potassium [Moles/Vol] 3.8 mmol/L Normal 3.7-5.3 [facility] Comment on above: Performed By: #### B LAWX PRCAL #### [facility] [employer] [address] [place] [address] Program Planner: Chencho Olvera MD Sodium [Moles/Vol] 136 mmol/L Normal 135-144 [facility] Comment on above: Performed By: #### B MPX, PRCAL #### [facility] [employer] [address] [place] [address] Program Planner: Chencho Olvera MD Urea nitrogen [Mass/Vol] 13 mg/dL Normal 8-23 [facility] Comment on above: Performed By: #### B MPX, PRCAL #### [facility] [employer] [address] [place] [address] Program Planner: Chencho Olvera MD Lactate, Sepsison 02-12-2023 Lactic Acid,Sep Wbld 1.4 mmol/L Normal 0.5-1.9 [facility] Comment on above: Performed By: #### L ACDS #### [facility] [employer] [address] [place] [address] Program Planner: Chencho Olvera MD Procalcitoninon 02-12-2023 Procalcitonin 0.12 ng/mL High <0.09 [facility] Comment on above: Result Comment: Suspected [...] entered into the Change in Procalcitonin Calculator ([email or web address]) to determine the patient's Mortality Risk Prognosis In healthy neonates, plasma Procalcitonin (PCT) concentrations increase gradually after , reaching peak values at about 24 hours of age then decrease to normal values below 0.5 ng/mL by 48-72 hours of age. Performed By: #### B MPX, PRCAL #### [facility] [address] [place] [address] Program Planner: Chencho Olvera MD Basic Metab w/rfx MGon 02-11 Anion gap [Moles/Vol] 12 mmol/L Normal 9-17 [facility] Comment on above: Performed By: #### P T, BMPX, CDP #### [employer] [address] [place] [address] Program Planner: Chencho Olvera MD Calcium [Mass/Vol] 8.6 mg/dL Normal 8.6-10.4 [facility] Comment on above: Performed By: #### P T, BMPX, CDP #### [employer] [address] [place] [address] Program Planner: Chencho Olvera MD Chloride [Moles/Vol] 103 mmol/L Normal 98-107 [facility] Comment on above: Performed By: #### P T, BMPX, CDP #### [facility] [address] [place] [address] Program Planner: Chencho Olvera MD CO2 [Moles/Vol] 23 mmol/L Normal 20-31 [facility] Comment on above: Performed By: #### P T, BMPX, CDP #### [facility] [employer] [address] [place] [address] Program Planner: Chencho Olvera MD Creatinine [Mass/Vol] 0.8 mg/dL Normal 0.7-1.2 [facility] Comment on above: Performed By: #### P T, BMPX, CDP #### [facility] [employer] [address] [place] [address] Program Planner: Chencho Olvera MD GFR/1.73 sq M.predicted among non-blacks MDRD (S/P/Bld) [Vol rate/Area] mL/min/{1.73_m2} Normal >60 [facility] Comment on above: Result Comment: These [...] renal tubular secretion. Performed By: #### P T, BMPX, CDP #### [facility] [employer] [address] [place] [address] Program Planner: Chencho Olvera MD Glucose [Mass/Vol] 82 mg/dL Normal 70-99 [facility] Comment on above: Performed By: #### P T, BMPX, CDP #### [facility] [employer] [address] [place] [address] Program Planner: Chencho Olvera MD Potassium [Moles/Vol] 4.2 mmol/L Normal 3.7-5.3 [facility] Comment on above: Performed By: #### P T, BMPX, CDP #### [address] [address] Program Planner: Chencho Olvera MD Sodium [Moles/Vol] 138 mmol/L Normal 135-144 [facility] Comment on above: Performed By: #### P T, BMPX, CDP #### [place] [address] Program Planner: Chencho Olvera MD Urea nitrogen [Mass/Vol] 13 mg/dL Normal 8-23 [facility] Comment on above: Performed By: #### P T, BMPX, CDP #### [place] [address] Program Planner: Chencho Olvera MD CBC with Diffon 02-11-2023 Abs. Basophil 0.00 k/uL Normal 0.0-0.2 [facility] Comment on above: Performed By: #### P T, BMPX, CDP #### [place] [address] Program Planner: Chencho Olvera MD Abs.Imm.Granulocyte 0.00 k/uL Normal 0.00-0.30 [facility] Comment on above: Performed By: #### P T, BMPX, CDP #### [place] [address] Program Planner: Chencho Olvera MD Abs.Neutrophil (Seg) 7.28 k/uL Normal 1.8-7.7 [facility] Comment on above: Performed By: #### P T, BMPX, CDP #### [facility] [employer] [address] [place] [address] Program Planner: Chencho Olvera MD Basophils/100 WBC (Bld) 0 % Normal 0-2 [facility] Comment on above: Performed By: #### P T, BMPX, CDP #### [facility] [address] [place] [address] Program Planner: Chencho Olvera MD Eosinophils (Bld) [#/Vol] 0.00 10*3/uL Normal 0.0-0.4 [facility] Comment on above: Performed By: #### P T, BMPX, CDP #### [facility] [address] [place] [address] Program Planner: Chencho Olvera MD Eosinophils/100 WBC (Bld) 0 % Low 1-4 [facility] Comment on above: Performed By: #### P T, BMPX, CDP #### [facility] [address] [place] [address] Program Planner: Chencho Olvera MD Immature granulocytes/100 WBC (Bld) 0 % Normal 0 [facility] Comment on above: Performed By: #### P T, BMPX, CDP #### [facility] [employer] [address] [place] [address] Program Planner: Chencho Olvera MD Lymphocytes (Bld) [#/Vol] 1.00 10*3/uL Normal 1.0-4.8 [facility] Comment on above: Performed By: #### P T, BMPX, CDP #### [facility] [employer] [address] [place] [address] Program Planner: Chencho Olvera MD Lymphocytes/100 WBC (Bld) 11 % Low 24-44 [facility] Comment on above: Performed By: #### P T, BMPX, CDP #### [facility] [employer] [address] [place] [address] Program Planner: Chencho Olvera MD Monocytes (Bld) [#/Vol] 0.82 10*3/uL High 0.1-0.8 [facility] Comment on above: Performed By: #### P T, BMPX, CDP #### [facility] [employer] [facility] [place] [address] Program Planner: Chencho Olvera MD Monocytes/100 WBC (Bld) 9 % High 1-7 [facility] Comment on above: Performed By: #### P T, BMPX, CDP #### [facility] [employer] [address] [place] [address] Program Planner: Chencho Olvera MD Morphology Harsh (Bld) [Interp] MACROCYTOSIS PRESENT Normal [facility] Comment on above: Performed By: #### P T, BMPX, CDP #### [facility] [employer] [address] [place] [address] Program Planner: Chencho Olvera MD Neutrophil (Seg) 80 % High 36-66 [facility] Comment on above: Performed By: #### P T, BMPX, CDP #### [facility] [employer] [address] [place] [address] Program Planner: Chencho Olvera MD Erythrocyte distribution width (RBC) [Ratio] 12.9 % Normal 11.8-14.4 [facility] Comment on above: Performed By: #### P T, BMPX, CDP #### [facility] [address] [place] [address] Program Planner: Chencho Olvera MD Hematocrit (Bld) [Volume fraction] 34.6 % Low 40.7-50.3 [facility] Comment on above: Performed By: #### P T, BMPX, CDP #### [facility] [employer] [address] [place] [address] Program Planner: Chencho Olvera MD Hemoglobin (Bld) [Mass/Vol] 10.9 g/dL Low 13.0-17.0 [facility] Comment on above: Performed By: #### P T, BMPX, CDP #### [facility] [employer] [address] [place] [address] Program Planner: Chencho Olvera MD MCH (RBC) [Entitic mass] 32.9 pg Normal 25.2-33.5 [facility] Comment on above: Performed By: #### P T, BMPX, CDP #### [address] [address] Program Planner: Chencho Olvera MD MCHC (RBC) [Mass/Vol] 31.5 g/dL Normal 28.4-34.8 [facility] Comment on above: Performed By: #### P T, BMPX, CDP #### [place] [address] Program Planner: Chencho Olvera MD MCV (RBC) [Entitic vol] 104.5 fL High 82.6-102.9 [facility] Comment on above: Performed By: #### P T, BMPX, CDP #### [address] [address] Program Planner: Chencho Olvera MD NRBC Automated 0.0 per 100 WBC Normal 0.0 [facility] Comment on above: Performed By: #### P T, BMPX, CDP #### [address] [address] Program Planner: Chencho Olvera MD Platelet mean volume (Bld) [Entitic vol] 9.5 fL Normal 8.1-13.5 [facility] Comment on above: Performed By: #### P T, BMPX, CDP #### [address] [address] Program Planner: Chencho Olvera MD Platelets (Bld) [#/Vol] 133 10*3/uL Low 138-453 [facility] Comment on above: Performed By: #### P T, BMPX, CDP #### [address] [address] Program Planner: Chencho Olvera MD RBC (Bld) [#/Vol] 3.31 10*6/uL Low 4.21-5.77 [facility] Comment on above: Performed By: #### P T, BMPX, CDP #### [facility] [employer] [address] [place] [address] Program Planner: Chencho Olvera MD WBC (Bld) [#/Vol] 9.1 10*3/uL Normal 3.5-11.3 [facility] Comment on above: Performed By: #### P T, BMPX, CDP #### [facility] [employer] [address] [place] [address] Program Planner: Chencho Olvera MD Lactate, Sepsison 02-11-2023 Lactic Acid,Sep Wbld 1.7 mmol/L Normal 0.5-1.9 [facility] Comment on above: Performed By: #### B MPX, PRCAL #### [facility] [employer] [address] [place] [address] Program Planner: Chencho Olvera MD PTon 02-11-2023 INR Coag (PPP) [Relative time] 1.5 {INR} Normal [facility] Comment on above: Result Comment: Therapeutic Range: Moderate Anticoagulant Intensity: INR = 2.0-3.0 High Anticoagulant Intensity: INR = 2.5-3.5 Performed By: #### P T, BMPX, CDP #### [facility] [employer] [address] [place] [address] Program Planner: Chencho Olvera MD PT Coag (PPP) [Time] 17.4 s High 11.7-14.9 [facility] Comment on above: Performed By: #### P T, BMPX, CDP #### [facility] [employer] [address] [place] [address] Program Planner: Chencho Olvera MD XR ABDOMEN (KUB) (SINGLE [...] Subhash Garcia MD 02/11/23 Final result Normal [facility] XR CHEST PORTABLEon 02-12-20 XR CHEST [...] Wellington Lucero MD 02/11/23 Final result Normal [facility] CBC with Diffon 02-10-2023 Abs. Basophil 0.03 k/uL Normal 0.00-0.20 [facility] Comment on above: Performed By: #### L ANGELA CDP #### [facility] [address] [place], [place] [id number] Program Planner: Chencho Olvera MD #### CP #### [facility] [address] [place] [address] Program Planner: Hadley Smith MD Abs. Eosinophil <0.03 Normal 0.00-0.44 [facility] Comment on above: Performed By: #### L ACTIC, CDP #### [address] [address] Program Planner: Chencho Olvera MD #### CP #### [facility] [address] [place] [address] Program Planner: Hadley Smith MD Abs.Imm.Granulocyte 0.05 k/uL Normal 0.00-0.30 [facility] Comment on above: Performed By: #### L ACTIC, CDP #### [address] [address] Program Planner: Chencho Olvera MD #### CP #### [facility] [address] [place] [address] Program Planner: Hadley Smith MD Abs.Neutrophil (Seg) 10.43 k/uL High 1.50-8.10 [facility] Comment on above: Performed By: #### L ACTDMITRIY, CDP #### [address] [address] Program Planner: Chencho Olvera MD #### CP #### [facility] [address] [place] [address] Program Planner: Hadley Smith MD Basophils/100 WBC (Bld) 0 % Normal 0-2 [facility] Comment on above: Performed By: #### L ACTIC, CDP #### [address] [address] Program Planner: Chencho Olvera MD #### CP #### [facility] [address] [place] [address] Program Planner: Hadley Smith MD Eosinophils/100 WBC (Bld) 0 % Low 1-4 [facility] Comment on above: Performed By: #### L ACTDMITRIY, CDP #### [address] [address] Program Planner: Chencho Olvera MD #### CP #### [facility] [address] [place] [address] Program Planner: Hadley Smith MD Erythrocyte distribution width (RBC) [Ratio] 12.8 % Normal 11.8-14.4 [facility] Comment on above: Performed By: #### L ANGELA CDP #### [address] [address] Program Planner: Chencho Olvera MD #### CP #### [facility] [address] [place] [address] Program Planner: Hadley Smith MD Hematocrit (Bld) [Volume fraction] 33.2 % Low 40.7-50.3 [facility] Comment on above: Performed By: #### L ANGELA CDP #### [address] [address] Program Planner: Chencho Olvera MD #### CP #### [facility] [address] [place] [address] Program Planner: Hadley Smith MD Hemoglobin (Bld) [Mass/Vol] 11.0 g/dL Low 13.0-17.0 [facility] Comment on above: Performed By: #### L ANGELA CDP #### [address] [address] Program Planner: Chencho Olvera MD #### CP #### [facility] [address] [place] [address] Program Planner: Hadley Smith MD Immature granulocytes/100 WBC (Bld) 0 % Normal 0 [facility] Comment on above: Performed By: #### L ANGELA, CDP #### [address] [place] [address] Program Planner: Chencho Olvera MD #### CP #### [facility] [address] [place] [address] Program Planner: Hadley Smith MD Lymphocytes (Bld) [#/Vol] 1.27 10*3/uL Normal 1.10-3.70 [facility] Comment on above: Performed By: #### L ANGELA, CDP #### [address] [address] Program Planner: Chencho Olvera MD #### CP #### [facility] [address] [place] [address] Program Planner: Hadley Smith MD Lymphocytes/100 WBC (Bld) 10 % Low 24-43 [facility] Comment on above: Performed By: #### L ANGELA, CDP #### [address] [address] Program Planner: Chencho Olvera MD #### CP #### [facility] [address] [place] [address] Program Planner: Hadley Smith MD MCH (RBC) [Entitic mass] 33.2 pg Normal 25.2-33.5 [facility] Comment on above: Performed By: #### L ANGELA, CDP #### [address] [address] Program Planner: Chencho Olvera MD #### CP #### [facility] [address] [place] [address] Program Planner: Hadley Smith MD MCHC (RBC) [Mass/Vol] 33.1 g/dL Normal 28.4-34.8 [facility] Comment on above: Performed By: #### L MIESHA MILLER #### [address] [address] Program Planner: Chencho Olvera MD #### CP #### [facility] [address] [place] [address] Program Planner: Hadley Smith MD MCV (RBC) [Entitic vol] 100.3 fL Normal 82.6-102.9 [facility] Comment on above: Performed By: #### L ANGELA CDP #### [address] [address] Program Planner: Chencho Olvera MD #### CP #### [facility] [address] [place] [address] Program Planner: Hadley Smith MD Monocytes (Bld) [#/Vol] 0.57 10*3/uL Normal 0.10-1.20 [facility] Comment on above: Performed By: #### Jie MILLER CDP #### [address] [address] Program Planner: Chencho Olvera MD #### CP #### [facility] [address] [place] [address] Program Planner: Hadley Smith MD Monocytes/100 WBC (Bld) 5 % Normal 3-12 [facility] Comment on above: Performed By: #### L ANGELA CDP #### [address] [address] Program Planner: Chencho Olvera MD #### CP #### [facility] [address] [place] [address] Program Planner: Hadley Smith MD Neutrophil (Seg) 85 % High 36-65 [facility] Comment on above: Performed By: #### L ANGELA CDP #### [address] [address] Program Planner: Chencho Olvera MD #### CP #### [facility] [address] [place] [address] Program Planner: Hadley Smith MD NRBC Automated 0.0 per 100 WBC Normal 0.0 [facility] Comment on above: Performed By: #### L ANGELA CDP #### [address] [address] Program Planner: Chencho Olvera MD #### CP #### [facility] [address] [place] [address] Program Planner: Hadley Smith MD Platelet mean volume (Bld) [Entitic vol] 9.3 fL Normal 8.1-13.5 [facility] Comment on above: Performed By: #### L ANGELA CDP #### [address] [address] Program Planner: Chencho Olvera MD #### CP #### [facility] [address] [place] [address] Program Planner: Hadley Smith MD Platelets (Bld) [#/Vol] 169 10*3/uL Normal 138-453 [facility] Comment on above: Performed By: #### L ANGELA CDP #### [address] [address] Program Planner: Chencho Olvera MD #### CP #### [facility] [address] [place] [address] Program Planner: Hadley Smith MD RBC (Bld) [#/Vol] 3.31 10*6/uL Low 4.21-5.77 [facility] Comment on above: Performed By: #### L MIESHA MILLER #### [address] [address] Program Planner: Chencho Olvera MD #### CP #### [facility] [address] [place] [address] Program Planner: Hadley Smith MD WBC (Bld) [#/Vol] 12.4 10*3/uL High 3.5-11.3 [facility] Comment on above: Performed By: #### L MIESHA MILLER #### [address] [address] Program Planner: Chencho Olvera MD #### CP #### [facility] [address] [place] [address] Program Planner: Hadley Smith MD Comp Metabolic Profon 2022 Albumin [Mass/Vol] 3.7 g/dL Normal 3.5-5.2 [facility] Comment on above: Performed By: #### B MPX, PRCAL #### [address] [address] Program Planner: Chencho Olvera MD Alkaline Phos 114 U/L Normal 40-129 [facility] Comment on above: Performed By: #### B MPX, PRCAL #### [address] [address] Program Planner: Chencho Olvera MD ALT [Catalytic activity/Vol] 16 U/L Normal 5-41 [facility] Comment on above: Performed By: #### B MPX, PRCAL #### [address] [address] Program Planner: Chencho Olvera MD Anion gap [Moles/Vol] 11 mmol/L Normal 9-17 [facility] Comment on above: Performed By: #### B MPX, PRCAL #### [address] [address] Program Planner: Chencho Olvera MD AST [Catalytic activity/Vol] 16 U/L Normal <40 [facility] Comment on above: Performed By: #### B MPX, PRCAL #### [facility] [employer] [address] [place] [address] Program Planner: Chencho Olvera MD Bilirubin [Mass/Vol] 0.4 mg/dL Normal 0.3-1.2 [facility] Comment on above: Performed By: #### B MPX, PRCAL #### [address] [address] Program Planner: Chencho Olvera MD BUN/CRE Ratio 19 Normal 9-20 [facility] Comment on above: Performed By: #### B MPX, PRCAL #### [address] [address] Program Planner: Chencho Olvera MD Calcium [Mass/Vol] 8.8 mg/dL Normal 8.6-10.4 [facility] Comment on above: Performed By: #### B MPX, PRCAL #### [address] [address] Program Planner: Chencho Olvera MD Chloride [Moles/Vol] 103 mmol/L Normal 98-107 [facility] Comment on above: Performed By: #### B MPX, PRCAL #### [facility] [employer] [address] [place] [address] Program Planner: Chencho Olvera MD CO2 [Moles/Vol] 26 mmol/L Normal 20-31 [facility] Comment on above: Performed By: #### B MPX, PRCAL #### [facility] [employer] [address] [place] [address] Program Planner: Chencho Olvera MD Creatinine [Mass/Vol] 1.0 mg/dL Normal 0.7-1.2 [facility] Comment on above: Performed By: #### B MPX, PRCAL #### [address] [address] Program Planner: Chencho Olvera MD GFR/1.73 sq M.predicted among non-blacks MDRD (S/P/Bld) [Vol rate/Area] mL/min/{1.73_m2} Normal >60 [facility] Comment on above: Result Comment: These [...] Performed By: #### B MPX, PRCAL #### [address] [address] Program Planner: Chencho Olvera MD Glucose [Mass/Vol] 120 mg/dL High 70-99 [facility] Comment on above: Performed By: #### B LAWX, PRCAL #### [facility] [employer] [address] [place] [address] Program Planner: Chencho Olvera MD Potassium [Moles/Vol] 4.0 mmol/L Normal 3.7-5.3 [facility] Comment on above: Performed By: #### B MPX, PRCAL #### [facility] [employer] [address] [place] [address] Program Planner: Chencho Olvera MD Protein [Mass/Vol] 6.3 g/dL Low 6.4-8.3 [facility] Comment on above: Performed By: #### B MPX, PRCAL #### [facility] [address] [place] [address] Program Planner: Chencho Olvera MD Sodium [Moles/Vol] 140 mmol/L Normal 135-144 [facility] Comment on above: Performed By: #### B MPX, PRCAL #### [facility] [address] [place] [address] Program Planner: Chencho Olvera MD Urea nitrogen [Mass/Vol] 19 mg/dL Normal 8-23 [facility] Comment on above: Performed By: #### B MPX, PRCAL #### [facility] [address] [place] [address] Program Planner: Chencho Olvera MD Lactic Acidon 02-10-2023 Lactic Acid,Whole Bl 1.1 mmol/L Normal 0.7-2.1 [facility] Comment on above: Performed By: #### L ACTIC, CDP #### [address] [address] Program Planner: Chencho Olvera MD #### CP #### [facility] [address] [place], [place] [address] Program Planner: Hadley Smith MD XR CHEST PORTABLEon 02-11-20 XR CHEST [...] Melchor Mota MD 02/10/23 Final result Normal [facility] Occult Blood, Fecalon 2022 Occult Blood 1 Negative Normal NEG [facility] Comment on above: Performed By: #### YULIYA COUGHLIN, CDP #### [facility] [address] [place] [address] [place], [place] [phone] Program Planner: David Montez MD Specimen 1 Date [id number] [facility] Comment on above: Performed By: #### YULIYA COUGHLIN, CDP #### [facility] [address] [place], [place] 7970783 Program Planner: David Mnotez MD Specimen 1 Time 729 [facility] Comment on above: Performed By: #### YULIYA COUGHLIN, CDP #### [facility] [address] [place] [address] [place], [place] [id number] Program Planner: David Montez MD CBC with Diffon 01-10-2023 Abs. Basophil 0.04 k/uL Normal 0.00-0.20 [facility] Comment on above: Performed By: #### C CAROLA CMPX #### [address] [place], [place] 5660483 Program Planner: David Montez MD Abs.Imm.Granulocyte <0.03 Normal 0.00-0.30 [facility] Comment on above: Performed By: #### C DP, CMPX #### [facility] [address] [place] [address] [place], [place] [phone] Program Planner: David Montez MD Abs.Neutrophil (Seg) 5.04 k/uL Normal 1.50-8.10 [facility] Comment on above: Performed By: #### C DP, CMPX #### [address] [place] [address] Program Planner: David Montez MD Basophils/100 WBC (Bld) 1 % Normal 0-2 [facility] Comment on above: Performed By: #### C DP, CMPX #### [address] [place], [facility]83 Program Planner: David Montez MD Eosinophils (Bld) [#/Vol] 0.14 10*3/uL Normal 0.00-0.44 [facility] Comment on above: Performed By: #### C DP, CMPX #### [address] [place], [facility]83 Program Planner: David Montez MD Eosinophils/100 WBC (Bld) 2 % Normal 1-4 [facility] Comment on above: Performed By: #### C DP, CMPX #### [address] [place], [place] [address] Program Planner: David Montez MD Erythrocyte distribution width (RBC) [Ratio] 13.0 % Normal 11.8-14.4 [facility] Comment on above: Performed By: #### C DP, CMPX #### [address] [place], [facility]83 Program Planner: David Montez MD Hematocrit (Bld) [Volume fraction] 40.0 % Low 40.7-50.3 [facility] Comment on above: Performed By: #### C DP, CMPX #### [address] [place], [place] [address] Program Planner: David Montez MD Hemoglobin (Bld) [Mass/Vol] 12.9 g/dL Low 13.0-17.0 [facility] Comment on above: Performed By: #### C DP, CMPX #### [address] [place] [address] Program Planner: David Montez MD Immature granulocytes/100 WBC (Bld) 0 % Normal 0 [facility] Comment on above: Performed By: #### C DP, CMPX #### [address] [place], [facility]83 Program Planner: David Montez MD Lymphocytes (Bld) [#/Vol] 1.37 10*3/uL Normal 1.10-3.70 [facility] Comment on above: Performed By: #### C DP, CMPX #### [address] [place], [facility]83 Program Planner: David Montez MD Lymphocytes/100 WBC (Bld) 19 % Low 24-43 [facility] Comment on above: Performed By: #### C DP, CMPX #### [address] [place], [facility]83 Program Planner: David Montez MD MCH (RBC) [Entitic mass] 32.5 pg Normal 25.2-33.5 [facility] Comment on above: Performed By: #### C DP, CMPX #### [address] [place], [facility]83 Program Planner: David Montez MD MCHC (RBC) [Mass/Vol] 32.3 g/dL Normal 28.4-34.[address] [facility] Comment on above: Performed By: #### C DP, CMPX #### [address] [place] [address]883 Program Planner: David Montez MD MCV (RBC) [Entitic vol] 100.8 fL Normal 82.6-102.9 [facility] Comment on above: Performed By: #### C DP, CMPX #### [address] [place] [address] Program Planner: David Montez MD Monocytes (Bld) [#/Vol] 0.59 10*3/uL Normal 0.10-1.20 [facility] Comment on above: Performed By: #### C DP, CMPX #### [address] [place] [address] Program Planner: David Montez MD Monocytes/100 WBC (Bld) 8 % Normal 3-12 [facility] Comment on above: Performed By: #### C DP, CMPX #### [facility] [address] [place], [place] [phone] Program Planner: David Montez MD Neutrophil (Seg) 70 % High 36-65 [facility] Comment on above: Performed By: #### C DP, CMPX #### [facility] [address] [place], [place] 7187083 Program Planner: David Montez MD NRBC Automated 0.0 per 100 WBC Normal 0.0 [facility] Comment on above: Performed By: #### C DP, CMPX #### [facility] [address] [place], [place] 7165583 Program Planner: David Montez MD Platelet mean volume (Bld) [Entitic vol] 9.5 fL Normal 8.1-13.5 [facility] Comment on above: Performed By: #### C DP, CMPX #### [address] [place], [place] 0758883 Program Planner: David Montez MD Platelets (Bld) [#/Vol] 195 10*3/uL Normal 138-453 [facility] Comment on above: Performed By: #### C DP, CMPX #### [facility] [address] [place], [place] 6413083 Program Planner: David Montez MD RBC (Bld) [#/Vol] 3.97 10*6/uL Low 4.21-5.77 [facility] Comment on above: Performed By: #### C DP, CMPX #### [facility] [address] [place], [place] 1749483 Program Planner: David Montez MD WBC (Bld) [#/Vol] 7.2 10*3/uL Normal 3.5-11.3 [facility] Comment on above: Performed By: #### C DP, CMPX #### [facility] [address] [place] [address] Program Planner: David Montez MD Discharge Instructionson Discharge Instructions [id number] 2#1.00CD:127 Normal [facility] Outside Recordson 11-12-2022 Outside Records [id number] 5#1.00CD:127 Normal [facility] Progress Note-Physicianon Progress Note-Physician Basic Information 67 [...] 06:20:00) Lymph Auto: 25.3 % (11/09/22 06:20:00) Prowers Auto: 6.5 % (11/09/22 06:20:00) Eos Auto: 2.3 % (11/09/22 06:20:00) Basophil Auto: 0.4 % (11/09/22 06:20:00) Neutro Absolute: 5 E9/L (11/09/22 06:20:00) Lymph Absolute: 1.9 E9/L (11/09/22 06:20:00) P[place]ers Absolute: 0.5 E9/L (11/09/22 06:20:00) Eos Absolute: [...] 09:35:00) Lipase Lvl: 33 unit/L (11/08/22 09:35:00) Magnesium: 1.3 mg/dL (11/09/22 06:20:00) Assessment/Plan Acute [...] on weekends/holiday, please page the trauma/EGS attending preservationist. This patient's plan of care was discussed [...] 5000 un (more content not included)... Normal [facility] Comment on above: Result Comment: Elec tronically Signed By: Laney Mitchell PA-C\.br\Date and Time Signed: 11/09/22 09:34 EDT\.br\Electronically Co-Signed [...] 06:23:00) Lymph Auto: 32.5 % (11/10/22 06:23:00) Prowers Auto: 6.7 % (11/10/22 06:23:00) Eos Auto: 4.1 % (11/10/22 06:23:00) Basophil Auto: 0.6 % (11/10/22 06:23:00) Neutro Absolute: 2.9 E9/L (11/10/22 06:23:00) Lymph Absolute: 1.7 E9/L (11/10/22 06:23:00) P[place]ers Absolute: 0.3 E9/L (11/10/22 06:23:00) Eos Absolute: 0.2 E9/L (11/10/22 06:23:00) Basophil Absolute: 0 E9/L (11/10/22 06:23:00) Glucose Lvl: 87 mg/dL (11/10/22 06:23:00) BUN: 15 mg/dL (11/10/22 06:23:00) Creatinine: 1 mg/dL (11/10/22 06:23:00) eGFR: 83 mL/min/1.73 m2 (11/10/22 06:23:00) BUN/Creat Ratio: 15 (11/10/22 06:23:00) Sodium Lvl: 140 mmol/L (11/10/22 06:23:00) Potassium Lvl: 4 mmol/L (11/10/22 06:23:00) Chloride: 107 mmol/L (11/10/22 06:23:00) CO2: 28 mmol/L (11/10/22 06:23:00) AGAP: 9 mEq/L (11/10/22 06:23:00) Calcium Lvl: 8.6 mg/dL Low (11/10/22 06:23:00) Magnesium: 1.5 mg/dL (11/10/22 06:23:00) Assessment/Plan Acute [...] on weekends/holiday, please page the trauma/EGS attending preservationist. This patient's plan of care was discussed [...] tab(s), Or (more content not included)... Normal [facility] Comment on above: Result Comment: Elec tronically Signed By: Laney Mitchell PA-C\.br\Date and Time Signed: 11/10/22 16:41 EDT\.br\Electronically Co-Signed By: Melchor Rivera DO\.br\Date and Time Co-Signed: 11/12/22 11:03 EDT Mechanical Repair Worker Consultation Noteon 11-12-2022 Mechanical Repair Worker Consultation Note [id number] 6#1.00CD:127 Normal [facility] Auto Diffon 11-11-2022 Basophils/100 WBC (Bld) 0.3 % Normal 0.0-2.0 [facility] Comment on above: Order Comment: Order Added by Discern Expert. Performed By: #### 2 [id number] #### [facility] [address] [place] [address] Basophils/Leukocytes Auto (Bld) [Pure # fraction] 0.0 E9/L Normal 0.0-0.2 [facility] Comment on above: Order Comment: Order Added by Discern Expert. Performed By: #### 2 [id number] #### [facility] [address] [place] [address] Eosinophils/100 WBC (Bld) 3.4 % Normal 0.0-8.0 [facility] Comment on above: Order Comment: Order Added by Discern Expert. Performed By: #### 2 [id number] #### [facility] [address] [place] [address] Eosinophils/Leukocytes Auto (Bld) [Pure # fraction] 0.2 E9/L Normal 0.0-0.5 [facility] Comment on above: Order Comment: Order Added by Discern Expert. Performed By: #### 2 [id number] #### [facility] [address] [place] [address] Lymphocytes/100 WBC (Bld) 33.5 % Normal 14.0-50.0 [facility] Comment on above: Order Comment: Order Added by Discern Expert. Performed By: #### 2 [id number] #### [facility] [address] [place] [address] [place] [address] Lymphocytes/Leukocytes Auto (Bld) [Pure # fraction] 1.6 E9/L Normal 1.0-4.0 [facility] Comment on above: Order Comment: Order Added by Discern Expert. Performed By: #### 2 [id number] #### [facility] [address] [place] [address] Monocytes/100 WBC (Bld) 8.3 % Normal 4.0-14.0 [facility] Comment on above: Order Comment: Order Added by Discern Expert. Performed By: #### 2 [id number] #### [facility] [address] [place] [address] Monocytes/Leukocytes Auto (Bld) [Pure # fraction] 0.4 E9/L Normal 0.2-1.0 [facility] Comment on above: Order Comment: Order Added by Discern Expert. Performed By: #### 2 [id number] #### [facility] [address] [place] [address] Neutrophils/100 WBC (Bld) 54.5 % Normal 36.0-75.0 [facility] Comment on above: Order Comment: Order Added by Discern Expert. Performed By: #### 2 [id number] #### [facility] [address] [place] [address] Neutrophils/Leukocytes Auto (Bld) [Pure # fraction] 2.6 E9/L Normal 2.0-7.5 [facility] Comment on above: Order Comment: Order Added by Discern Expert. Performed By: #### 2 [id number] #### [facility] [address] [place] [address] BMPon 11-11-2022 Anion gap [Moles/Vol] 12 mmol/L Normal 6-16 [facility] Comment on above: Performed By: #### 2 [id number] #### [facility] [address] [place] [address] Calcium [Mass/Vol] 8.5 mg/dL Low 8.9-11.1 [facility] Comment on above: Performed By: #### 2 [id number] #### [facility] [address] [place] [address] Chloride [Moles/Vol] 105 mmol/L Normal 101-111 [facility] Comment on above: Performed By: #### 2 [id number] #### [facility] [address] [place] [address] CO2 [Moles/Vol] 28 mmol/L Normal 21-31 [facility] Comment on above: Performed By: #### 2 [id number] #### [facility] [address] [place] [address] Creatinine [Mass/Vol] 1.0 mg/dL Normal 0.5-1.3 [facility] Comment on above: Performed By: #### 2 [id number] #### [facility] [address] [place] [address] Glucose [Mass/Vol] 91 mg/dL Normal 55-199 [facility] Comment on above: Result Comment: If t his glucose result represents a fasting glucose, interpretation should refer to the following reference range: 55-99 mg/dL Performed By: #### 2 [id number] #### [facility] [address] [place] [address] Potassium [Moles/Vol] 3.5 mmol/L Normal 3.5-5.3 [facility] [facility] [place] Comment on above: Performed By: #### 2 [id number] #### [facility] [address] [place] [address] Sodium [Moles/Vol] 141 mmol/L Normal 135-145 [facility] Comment on above: Performed By: #### 2 [id number] #### [facility] [address] [place] [address] Urea nitrogen [Mass/Vol] 12 mg/dL Normal 5-21 [facility] Comment on above: Performed By: #### 2 [id number] #### [facility] [address] [place] [address] Urea nitrogen/Creatinine [Mass ratio] 12 No Units Normal 10-20 [facility] Comment on above: Performed By: #### 2 [id number] #### [facility] [address] [place] [address] CBC w/ Auto Diffon 3 Erythrocyte distribution width (RBC) [Ratio] 13.2 % Normal 10.9-14.2 [facility] Comment on above: Performed By: #### 2 [id number] #### [facility] [address] [place] [address] Hematocrit (Bld) [Volume fraction] 31.9 % Low 37.7-49.0 [facility] Comment on above: Performed By: #### 2 [id number] #### [facility] [address] [place] [address] Hemoglobin (Bld) [Mass/Vol] 11.1 g/dL Low 13.5-17.5 [facility] Comment on above: Performed By: #### 2 [id number] #### [facility] [address] [place] [address] MCH (RBC) [Entitic mass] 33.2 pg Normal 27.0-34.0 [facility] Comment on above: Performed By: #### 2 [id number] #### [facility] [address] [place] [address] MCHC (RBC) [Mass/Vol] 34.8 g/dL Normal 31.4-36.0 [facility] [place] Comment on above: Performed By: #### 2 [id number] #### [facility] [address] [place] [address] MCV (RBC) [Entitic vol] 95.5 fL Normal 80.0-100.0 [facility] Comment on above: Performed By: #### 2 [id number] #### [facility] [address] [place] [address] Platelet mean volume (Bld) [Entitic vol] 6.9 fL Normal 6.4-10.8 [facility] Comment on above: Performed By: #### 2 [id number] #### [facility] [address] [place] [address] Platelets (Bld) [#/Vol] 147.0 E9/L Low 150.0-500.0 [facility] Comment on above: Performed By: #### 2 [id number] #### [facility] [address] [place] [address] RBC (Bld) [#/Vol] 3.3 E12/L Low 4.3-5.9 [facility] Comment on above: Performed By: #### 2 [id number] #### [facility] [address] [place] [address] WBC corrected for nucl RBC Auto (Bld) [#/Vol] 4.9 E9/L Normal 4.0-11.0 [facility] Comment on above: Performed By: #### 2 [id number] #### [facility] [address] [place] [address] CHEMISTRYOrdered By: SYSTEM SYSTEM on 11-11-2022 Anion gap [Moles/Vol] 12 mmol/L Normal 6 - 16 mEq/L [facility] Remisol Calcium [Mass/Vol] 8.5 mg/dL Low 8.9 - 11. 1 mg/dL [facility] Chloride [Moles/Vol] 105 mmol/L Normal 101 - 1 11 mmol/L [facility] Remisol CO2 [Moles/Vol] 28 mmol/L Normal 21 - 31 mmol/L [facility] Remisol Creatinine [Mass/Vol] 1.0 mg/dL Normal 0.5 - 1.3 mg/dL [facility] Remisol GFR/1.73 sq M.predicted among non-blacks MDRD (S/P/Bld) [Vol rate/Area] 83 mL/min/1.73 m2 Normal >=59mL/min/ 1.73 m2 [facility] Chem S Glucose [Mass/Vol] 91 mg/dL Normal [...] [facility] HEMATOLOGYOrdered By: SYSTEM SYSTEM on 11-11-2022 Basophils/100 WBC (Bld) 0.3 % Normal 0.0 [...] 10.8 fL [facility] Platelets (Bld) [#/Vol] 147.0 E9/L Low 150.0 - 500.0 E9/L [facility] RBC (Bld) [#/Vol] 3.3 E12/L Low 4.3 - 5.9 E12/L [facility] WBC corrected for nucl RBC Auto (Bld) [#/Vol] 4.9 E9/L Normal 4.0 - 11.0 E9/L [facility] Inpatient Patient Summaryon 11-11-2022 Inpatient Patient [...] Event Result Pharmacy Information Other: [facility] in [place] Previously Scheduled Follow-Up Appointments Sunday 10:30 AM EDT With: Where: [facility] Sunday 10:15 AM EST With: JAX MOELLER, Yasmani Cabrera Where: [facility] Interdisciplinary Note - Poli e Manageron 11-11-2022 Interdisciplinary Note - [employer] CRM to room to discuss DC planning. Patient is awake, alert but with some confusion. Patient is alert to person. Patient is from [facility]. Patient will return there at DC. He will need transport. We are calling care home this Am at [phone] to see when they can transport. Patient is here with possible Bowel Obstruction. Patient has Intestinal Dysmobility. Patient was advanced to clears on 11/09 and to regular 11/10. Patient rounded with Trauma Team. Patient will DC back to long term today. Patient was provided CRM contact, white board updated. CRM following [facility] Comment on above: Result Comment: Elec tronically Signed By: Spoerr, Reva L\.br\Date and Time Signed: 11/11/22 10:28 EDT Magnesiumon 11-11-2022 Magnesium [Mass/Vol] 1.4 mg/dL Normal 1.3-2.4 [facility] Comment on above: Performed By: #### 2 015824, 9550526, 6934636, 23163062, 4871047, 1462544 #### [facility] [address] [place] [address] eGFRon 11-11-2022 GFR/1.73 sq M.predicted among non-blacks MDRD (S/P/Bld) [Vol rate/Area] 83 mL/min/1.73 m2 Normal >=59 [facility] Comment on above: Order Comment: Order added by Discern Expert. Result Comment: Cruise Counselor maria c kidney disease could be indicated at eGFR's of less than 60 mL/min/1.73m2. Kidney failure is indicated at less than 15 mL/min/1.73m2. Performed By: #### 2 [id number] #### [facility] [address] [place] [address] Auto Diffon 11-10-2022 Basophils/100 WBC (Bld) 0.6 % Normal 0.0-2.0 [facility] Comment on above: Order Comment: Order Added by Discern Expert. Performed By: #### 2 597377, 6605104, 4161242, 08732207, 2019387, 6731918 #### [facility] [address] [place] [address] Basophils/Leukocytes Auto (Bld) [Pure # fraction] 0.0 E9/L Normal 0.0-0.2 [facility] Comment on above: Order Comment: Order Added by Discern Expert. Performed By: #### 2 318204, 0468079, 0640684, 53921549, 0783010, 3406311 #### [facility] [address] [place] [address] Eosinophils/100 WBC (Bld) 4.1 % Normal 0.0-8.0 [facility] Comment on above: Order Comment: Order Added by Discern Expert. Performed By: #### 2 730990, 8355786, 7750521, 24363494, 1139293, 3688838 #### [facility] [address] [place] [address] Eosinophils/Leukocytes Auto (Bld) [Pure # fraction] 0.2 E9/L Normal 0.0-0.5 [facility] Comment on above: Order Comment: Order Added by Discern Expert. Performed By: #### 2 232781, 4262207, 1957374, 76922081, 9074718, 7863567 #### [facility] [address] [place] [address] Lymphocytes/100 WBC (Bld) 32.5 % Normal 14.0-50.0 [facility] Comment on above: Order Comment: Order Added by Discern Expert. Performed By: #### 2 267022, 2763977, 2689203, 73925176, 2901529, 7405226 #### [facility] [address] [place] [address] Lymphocytes/Leukocytes Auto (Bld) [Pure # fraction] 1.7 E9/L Normal 1.0-4.0 [facility] Comment on above: Order Comment: Order Added by Discern Expert. Performed By: #### 2 471657, 8944133, 2237874, 61777562, 0621306, 0858587 #### [facility] [address] [place] [address] Monocytes/100 WBC (Bld) 6.7 % Normal 4.0-14.0 [facility] Comment on above: Order Comment: Order Added by Discern Expert. Performed By: #### 2 682674, 9259680, 0228633, 79987797, 8643609, 6800174 #### [facility] [address] [place] [address] Monocytes/Leukocytes Auto (Bld) [Pure # fraction] 0.3 E9/L Normal 0.2-1.0 [facility] Comment on above: Order Comment: Order Added by Discern Expert. Performed By: #### 2 769619, 1232696, 5833849, 50954276, 7835201, 1218482 #### [facility] [address] [place] [address] Neutrophils/100 WBC (Bld) 56.1 % Normal 36.0-75.0 [facility] Comment on above: Order Comment: Order Added by Discern Expert. Performed By: #### 2 242643, 7774418, 7345772, 71634681, 9336377, 2873292 #### [facility] [address] [place] [address] Neutrophils/Leukocytes Auto (Bld) [Pure # fraction] 2.9 E9/L Normal 2.0-7.5 [facility] Comment on above: Order Comment: Order Added by Discern Expert. Performed By: #### 2 032704, 9625558, 9877342, 40097651, 8271315, 0391316 #### [facility] [address] [place] [address] BMPon 11-10-2022 Anion gap [Moles/Vol] 9 mmol/L Normal 6-16 [facility] [place] Comment on above: Performed By: #### 2 537597, 5323804, 3864645, 53824012, 7396195, 7874008 #### [facility] [address] [place] [address] Calcium [Mass/Vol] 8.6 mg/dL Low 8.9-11.1 [facility] Comment on above: Performed By: #### 2 306784, 0592047, 3283860, 22139933, 4539690, 5221374 #### [facility] [address] [place] [address] Chloride [Moles/Vol] 107 mmol/L Normal 101-111 [facility] Comment on above: Performed By: #### 2 946225, 4274097, 5138129, 65424151, 0844907, 2384656 #### [facility] [address] [place] [address] CO2 [Moles/Vol] 28 mmol/L Normal 21-31 [facility] Comment on above: Performed By: #### 2 627377, 2132317, 1716011, 90959093, 0108194, 9190482 #### [facility] [address] [place] [address] Creatinine [Mass/Vol] 1.0 mg/dL Normal 0.5-1.3 [facility] Comment on above: Performed By: #### 2 040031, 7440599, 1064671, 67971583, 9157069, 3428882 #### [facility] [address] [place] [address] Glucose [Mass/Vol] 87 mg/dL Normal 55-199 [facility] Comment on above: Result Comment: If t his glucose result represents a fasting glucose, interpretation should refer to the following reference range: 55-99 mg/dL Performed By: #### 2 311231, 0870253, 8310574, 40679383, 6209878, 9964162 #### [facility] [address] [place] [address] Potassium [Moles/Vol] 4.0 mmol/L Normal 3.5-5.3 [facility] Comment on above: Performed By: #### 2 300214, 2046674, 3627559, 77743865, 2462302, 6622708 #### [facility] [address] [place] [address] Sodium [Moles/Vol] 140 mmol/L Normal 135-145 [facility] Comment on above: Performed By: #### 2 829869, 2492396, 3717427, 52497779, 4076336, 8425870 #### [facility] [address] [place] [address] Urea nitrogen [Mass/Vol] 15 mg/dL Normal 5-21 [facility] Comment on above: Performed By: #### 2 200456, 1558710, 6443946, 28796116, 0099958, 2031325 #### [facility] [address] [place] [address] Urea nitrogen/Creatinine [Mass ratio] 15 No Units Normal 10-20 [facility] Comment on above: Performed By: #### 2 433397, 0230331, 4409930, 45875329, 3050005, 1406602 #### [facility] [address] [place] [address] CBC w/ Auto Diffon 3 Erythrocyte distribution width (RBC) [Ratio] 13.5 % Normal 10.9-14.2 [facility] Comment on above: Performed By: #### 2 573684, 9887789, 9769254, 12379513, 5207842, 5198898 #### [facility] [address] [place] [address] Hematocrit (Bld) [Volume fraction] 32.0 % Low 37.7-49.0 [facility] Comment on above: Performed By: #### 2 115824, 8042257, 6125525, 69529693, 4698586, 8565388 #### [facility] [address] [place] [address] Hemoglobin (Bld) [Mass/Vol] 10.6 g/dL Low 13.5-17.5 [facility] Comment on above: Performed By: #### 2 258279, 1708130, 3310140, 66462170, 3767602, 2826223 #### [facility] [address] [place] [address] MCH (RBC) [Entitic mass] 32.1 pg Normal 27.0-34.0 [facility] Comment on above: Performed By: #### 2 237505, 6700874, 9625836, 77641803, 0808669, 6295211 #### [facility] [address] [place] [address] MCHC (RBC) [Mass/Vol] 33.0 g/dL Normal 31.4-36.0 [facility] Comment on above: Performed By: #### 2 807606, 6057328, 8392913, 10795322, 0972566, 5576425 #### [facility] [address] [place] [address] MCV (RBC) [Entitic vol] 97.3 fL Normal 80.0-100.0 [facility] Comment on above: Performed By: #### 2 980123, 9818229, 2783805, 21849551, 1846229, 6474901 #### [facility] [address] [place] [id number] Platelet mean volume (Bld) [Entitic vol] 7.3 fL Normal 6.4-10.8 [facility] Comment on above: Performed By: #### 2 558934, 7972433, 2349820, 99394767, 4708970, 5849892 #### [facility] [address] [place], [place] [address] Platelets (Bld) [#/Vol] 153.0 E9/L Normal 150.0-500.0 [facility] Comment on above: Performed By: #### 2 862160, 4590305, 1798817, 38044391, 2133188, 0650137 #### [facility] [address] [place], [place] [address] RBC (Bld) [#/Vol] 3.3 E12/L Low 4.3-5.9 [facility] Comment on above: Performed By: #### 2 994657, 0745280, 1431384, 21048411, 5655254, 5684061 #### [facility] [address] [place], [place] [address] WBC corrected for nucl RBC Auto (Bld) [#/Vol] 5.2 E9/L Normal 4.0-11.0 [facility] Comment on above: Performed By: #### 2 844997, 2543959, 4575955, 08772620, 9245962, 2786106 #### [facility] [address] [place] [address] CHEMISTRYOrdered By: SYSTEM SYSTEM on 11-10-2022 Anion gap [Moles/Vol] 9 mmol/L Normal 6 - 16 mEq/L [facility] Calcium [Mass/Vol] 8.6 mg/dL Low 8.9 - 11. 1 mg/dL [facility] Chloride [Moles/Vol] 107 mmol/L Normal 101 - 1 11 mmol/L [facility] CO2 [Moles/Vol] 28 mmol/L Normal 21 - 31 mmol/L [facility] Creatinine [Mass/Vol] 1.0 mg/dL Normal 0.5 - 1.3 mg/dL [facility] GFR/1.73 sq M.predicted among non-blacks MDRD (S/P/Bld) [Vol rate/Area] 83 mL/min/1.73 m2 Normal >=59mL/min/ 1.73 m2 [facility] S Glucose [Mass/Vol] 87 mg/dL Normal 55 - 199 mg/dL [facility] Magnesium [Mass/Vol] 1.5 mg/dL Normal 1.3 - 2 .4 mg/dL [facility] Potassium [Moles/Vol] 4.0 mmol/L Normal 3.5 - 5.3 mmol/L [facility] Sodium [Moles/Vol] 140 mmol/L Normal 135 - 145 mmol/L [facility] Urea nitrogen [Mass/Vol] 15 mg/dL Normal 5 - 21 mg/dL [facility] Urea nitrogen/Creatinine [Mass ratio] 15 mg/mg Normal 10 - 20 [facility] HEMATOLOGYOrdered By: SYSTEM SYSTEM on 11-10-2022 [...] 2.9 E9/L Normal 2.0 - 7.5 E9/L [facility] HEMATOLOGYOrdered By: Mavis Ramírez on 11-10-2022 Erythrocyte distribution width (RBC) [Ratio] 13.5 % Normal 10.9 - 14.2 % [facility] Hematocrit (Bld) [Volume fraction] 32.0 % Low 37.7 - 49.0 % [facility] Hemoglobin (Bld) [Mass/Vol] 10.6 g/dL Low 13.5 - 17.5 gm/dL [facility] MCH (RBC) [Entitic mass] 32.1 pg Normal 27.0 - 34.0 pg [facility] MCHC (RBC) [Mass/Vol] 33.0 g/dL Normal 31.4 - 36.0 gm/dL [facility] MCV (RBC) [Entitic vol] 97.3 fL Normal 80.0 - 100.0 fL [facility] Platelet mean volume (Bld) [Entitic vol] 7.3 fL Normal 6.4 - 10.8 fL [facility] Platelets (Bld) [#/Vol] 153.0 E9/L Normal 150.0 - 500.0 E9/L [facility] RBC (Bld) [#/Vol] 3.3 E12/L Low 4.3 - 5.9 E12/L [facility] WBC corrected for nucl RBC Auto (Bld) [#/Vol] 5.2 E9/L Normal 4.0 - 11.0 E9/L [facility] Interdisciplinary Note - Poli e Manageron 11-10-2022 Interdisciplinary Note - [employer] CRM to room to discuss DC planning. Patient is awake, alert but with some confusion. Patient is alert to person. Patient is from [facility]. Patient will return there at DC. He will need transport. Patient is here with possible Bowel Obstruction. Patient has Intestinal Dysmobility. Patient was advanced to clears on 11/09. Will continue to advance diet and hopefully DC in 1-2 more days. Patient will round with Trauma Team. Patient was assisted with bed change, he urinated and needed cleaned. Patient was provided CRM contact, sissy board updated. CRM following Anticipated DC 1-2 days. Per Trauma possible DC later if tolerates advanced diet Called Patient sister to provide update. Patient will need [place] to transport. We will call to let them know of possible DC today Call to Adm Kor[facility] [phone]. They will not have transportation to picker operator pt today since their drivers are off at 3pm. If dc is tomorrow, CRM is to call [phone] and speak to Berna Vaughan or Leilani. Prefers call in AM since transport isnt available all day. Normal [facility] Comment on above: Result Comment: Elec tronically Signed By: Mavis Eng.br\Date and Time Signed: 11/10/22 14:32 EDT Magnesiumon 11-10-2022 Magnesium [Mass/Vol] 1.5 mg/dL Normal 1.3-2.4 [facility] Comment on above: Performed By: #### 2 499051, 0069782, 1108725, 33016560, 6664403, 0600047 #### [facility] [address] [place] [address] eGFRon 11-10-2022 GFR/1.73 sq M.predicted among non-blacks MDRD (S/P/Bld) [Vol rate/Area] 83 mL/min/1.73 m2 Normal >=59 [facility] Comment on above: Order Comment: Order added by Discern Expert. Result Comment: Cruise Counselor maria c kidney disease could be indicated at eGFR's of less than 60 mL/min/1.73m2. Kidney failure is indicated at less than 15 mL/min/1.73m2. Performed By: #### 2 722371, 8280450, 1833596, 03954684, 1032913, 9721149 #### [facility] [address] [place] [address] Auto Diffon 11-09-2022 Basophils/100 WBC (Bld) 0.4 % Normal 0.0-2.0 [facility] Comment on above: Order Comment: Order Added by Discern Expert. Performed By: #### 2 [id number] #### [facility] [address] [place] [address] Basophils/Leukocytes Auto (Bld) [Pure # fraction] 0.0 E9/L Normal 0.0-0.2 [facility] Comment on above: Order Comment: Order Added by Discern Expert. Performed By: #### 2 13714138 #### [facility] [address] [place] [address] Eosinophils/100 WBC (Bld) 2.3 % Normal 0.0-8.0 [facility] Comment on above: Order Comment: Order Added by Discern Expert. Performed By: #### 2 [id number] #### [facility] [address] [place] [address] Eosinophils/Leukocytes Auto (Bld) [Pure # fraction] 0.2 E9/L Normal 0.0-0.5 [facility] Comment on above: Order Comment: Order Added by Discern Expert. Performed By: #### 2 [id number] #### [facility] [address] [place] [address] Lymphocytes/100 WBC (Bld) 25.3 % Normal 14.0-50.0 [facility] Comment on above: Order Comment: Order Added by Discern Expert. Performed By: #### 2 [id number] #### [facility] [address] [place] [address] Lymphocytes/Leukocytes Auto (Bld) [Pure # fraction] 1.9 E9/L Normal 1.0-4.0 [facility] Comment on above: Order Comment: Order Added by Discern Expert. Performed By: #### 2 [id number] #### [facility] [address] [place] [address] Monocytes/100 WBC (Bld) 6.5 % Normal 4.0-14.0 [facility] Comment on above: Order Comment: Order Added by Discern Expert. Performed By: #### 2 [id number] #### [facility] [address] [place] [address] Monocytes/Leukocytes Auto (Bld) [Pure # fraction] 0.5 E9/L Normal 0.2-1.0 [facility] Comment on above: Order Comment: Order Added by Discern Expert. Performed By: #### 2 [id number] #### [facility] [address] [place] [address] Neutrophils/100 WBC (Bld) 65.5 % Normal 36.0-75.0 [facility] Comment on above: Order Comment: Order Added by Discern Expert. Performed By: #### 2 [id number] #### [facility] [address] [place] [address] Neutrophils/Leukocytes Auto (Bld) [Pure # fraction] 5.0 E9/L Normal 2.0-7.5 [facility] Comment on above: Order Comment: Order Added by Discern Expert. Performed By: #### 2 [id number] #### [facility] [address] [place] [address] BMPon 11-09-2022 Anion gap [Moles/Vol] 9 mmol/L Normal 6-16 [facility] Comment on above: Performed By: #### 2 [id number] #### [facility] [address] [place] [address] Calcium [Mass/Vol] 8.6 mg/dL Low 8.9-11.1 [facility] Comment on above: Performed By: #### 2 [id number] #### [facility] [address] [place] [address] Chloride [Moles/Vol] 107 mmol/L Normal 101-111 [facility] Comment on above: Performed By: #### 2 [id number] #### [facility] [address] [place] [address] CO2 [Moles/Vol] 24 mmol/L Normal 21-31 [facility] Comment on above: Performed By: #### 2 [id number] #### [facility] [address] [place] [address] Creatinine [Mass/Vol] 1.1 mg/dL Normal 0.5-1.3 [facility] Comment on above: Performed By: #### 2 [id number] #### [facility] [address] [place] [address] Glucose [Mass/Vol] 79 mg/dL Normal 55-199 [facility] Comment on above: Result Comment: If t his glucose result represents a fasting glucose, interpretation should refer to the following reference range: 55-99 mg/dL Performed By: #### 2 [id number] #### [facility] [address] [place] [address] Potassium [Moles/Vol] 3.9 mmol/L Normal 3.5-5.3 [facility] Comment on above: Performed By: #### 2 [id number] #### [facility] [address] [place] [address] Sodium [Moles/Vol] 136 mmol/L Normal 135-145 [facility] Comment on above: Performed By: #### 2 [id number] #### [facility] [address] [place] [address] Urea nitrogen [Mass/Vol] 26 mg/dL High 5-21 [facility] Comment on above: Performed By: #### 2 [id number] #### [facility] [address] [place] [address] Urea nitrogen/Creatinine [Mass ratio] 24 No Units High 10-20 [facility] Comment on above: Performed By: #### 2 [id number] #### [facility] [address] [place] [address] CBC w/ Auto Diffon 3 Erythrocyte distribution width (RBC) [Ratio] 13.5 % Normal 10.9-14.2 [facility] Comment on above: Performed By: #### 2 [id number] #### [facility] [address] [place] [address] Hematocrit (Bld) [Volume fraction] 30.8 % Low 37.7-49.0 [facility] Comment on above: Performed By: #### 2 [id number] #### [facility] [address] [place] [address] Hemoglobin (Bld) [Mass/Vol] 10.4 g/dL Low 13.5-17.5 [facility] Comment on above: Performed By: #### 2 [id number] #### [facility] [address] [place] [address] MCH (RBC) [Entitic mass] 32.6 pg Normal 27.0-34.0 [facility] Comment on above: Performed By: #### 2 [id number] #### [facility] [address] [place] [address] MCHC (RBC) [Mass/Vol] 33.6 g/dL Normal 31.4-36.0 [facility] Comment on above: Performed By: #### 2 [id number] #### [facility] [address] [place] [address] MCV (RBC) [Entitic vol] 97.1 fL Normal 80.0-100.0 [facility] Comment on above: Performed By: #### 2 [id number] #### [facility] [address] [place] [address] Platelet mean volume (Bld) [Entitic vol] 7.6 fL Normal 6.4-10.8 [facility] Comment on above: Performed By: #### 2 [id number] #### [facility] [address] [place] [address] Platelets (Bld) [#/Vol] 167.0 E9/L Normal 150.0-500.0 [facility] Comment on above: Performed By: #### 2 [id number] #### [facility] [address] [place] [address] RBC (Bld) [#/Vol] 3.2 E12/L Low 4.3-5.9 [facility] Comment on above: Performed By: #### 2 [id number] #### [facility] [address] [place] [address] WBC corrected for nucl RBC Auto (Bld) [#/Vol] 7.7 E9/L Normal 4.0-11.0 [facility] Comment on above: Performed By: #### 2 [id number] #### [facility] [address] [place] [address] CHEMISTRYOrdered By: Lab ROP User on 11-09-2022 Glucose [Mass/Vol] 73 mg/dL Normal 55 - 99 mg/dL [facility] POC Subsection Comment on above: Result Comment: Kelsey jordon Meter POC Device SN [id number] Invalid Interpretation Code [facility] POC Subsection POC User ID [id number] Invalid Interpretation Code [facility] POC Subsection POC Username VESNA SMITH Invalid Interpretation Code [facility] POC Subsection CHEMISTRYOrdered By: SYSTEM SYSTEM on 11-09-2022 Anion gap [Moles/Vol] 9 mmol/L Normal 6 - 16 mEq/L [facility] Remisol Calcium [Mass/Vol] 8.6 mg/dL Low 8.9 - 11. 1 mg/dL [facility] Chloride [Moles/Vol] 107 mmol/L Normal 101 - 1 11 mmol/L [facility] CO2 [Moles/Vol] 24 mmol/L Normal 21 - 31 mmol/L [facility] Creatinine [Mass/Vol] 1.1 mg/dL Normal 0.5 - 1.3 mg/dL [facility] Remisol GFR/1.73 sq M.predicted among non-blacks MDRD (S/P/Bld) [Vol rate/Area] 74 mL/min/1.73 m2 Normal >=59mL/min/ 1.73 m2 [facility] Chem S Glucose [Mass/Vol] 79 mg/dL Normal 55 - 199 mg/dL [facility] Magnesium [Mass/Vol] 1.3 mg/dL Normal 1.3 - 2 .4 mg/dL [facility] Potassium [Moles/Vol] 3.9 mmol/L Normal 3.5 - 5.3 mmol/L [facility] Sodium [Moles/Vol] 136 mmol/L Normal 135 - 145 mmol/L [facility] Urea nitrogen [Mass/Vol] 26 mg/dL High 5 - 21 mg/dL [facility] Urea nitrogen/Creatinine [Mass ratio] 24 mg/mg High 10 - 20 [facility] Remisol Capillary Glucose POCon Glucose [Mass/Vol] 73 mg/dL Normal 55-99 [facility] Comment on above: Result Comment: Kelsey jordon Meter Performed By: #### 2 142277, 4698742, 7588134, 93912897, 1392453, 1877857 #### [facility] [address] [place] [address] HEMATOLOGYOrdered By: SYSTEM SYSTEM on 11-09-2022 Basophils/100 [...] 33.6 g/dL Normal 31.4 - 36.0 gm/dL [facility] HemeAutoSS MCV (RBC) [Entitic vol] 97.1 fL Normal 80.0 - 100.0 fL [facility]eAutoSS Platelet mean volume (Bld) [Entitic vol] 7.6 fL Normal 6.4 - 10.8 fL [facility] HemeAutoSS Platelets (Bld) [#/Vol] 167.0 E9/L Normal 150.0 - 500.0 E9/L [facility]eAutoSS RBC (Bld) [#/Vol] 3.2 E12/L Low 4.3 - 5.9 E12/L [facility]eAutoSS WBC corrected for nucl RBC Auto (Bld) [#/Vol] 7.7 E9/L Normal 4.0 - 11.0 E9/L [facility] HemeAutoSS Interdisciplinary Note - Poli e Manageron 11-09-2022 Interdisciplinary Note - [employer] entered the room to discuss dc planning. Pt is sleeping. Pt is from [facility] and will return. Pt's sister Susan is main contact. Pt is [place] bound. On bowel rest, no sx yet. CRM to follow. Ant dc TBD. Normal [facility] Comment on above: Result Comment: Elec tronically Signed By: Mavis Eng\dominik\Date and Time Signed: 11/09/22 09:40 EDT Magnesiumon 11-09-2022 Magnesium [Mass/Vol] 1.3 mg/dL Normal 1.3-2.4 [facility] Comment on above: Performed By: #### 2 [id number] #### [facility] [address] [place] [address] eGFRon 11-09-2022 GFR/1.73 sq M.predicted among non-blacks MDRD (S/P/Bld) [Vol rate/Area] 74 mL/min/1.73 m2 Normal >=59 [facility] Comment on above: Order Comment: Order added by Discern Expert. Result Comment: Cruise Counselor maria c kidney disease could be indicated at eGFR's of less than 60 mL/min/1.73m2. Kidney failure is indicated at less than 15 mL/min/1.73m2. Performed By: #### 2 [id number] #### [facility] [address] [place] [address] Auto Diffon 11-08-2022 Basophils/100 WBC (Bld) 0.1 % Normal 0.0-2.0 [facility] Comment on above: Order Comment: Order Added by Discern Expert. Performed By: #### 2 327117, 2126984, 4664992, 24476515, 3811404, 1944393 #### [facility] [address] [place] [address] Basophils/Leukocytes Auto (Bld) [Pure # fraction] 0.0 E9/L Normal 0.0-0.2 [facility] Comment on above: Order Comment: Order Added by Discern Expert. Performed By: #### 2 359152, 2918958, 8345115, 78125140, 6416821, 5124723 #### [facility] [address] [place] [address] Eosinophils/100 WBC (Bld) 0.1 % Normal 0.0-8.0 [facility] Comment on above: Order Comment: Order Added by Discern Expert. Performed By: #### 2 682170, 4350751, 5647086, 68639756, 7470221, 2716591 #### [facility] [address] [place] [address] Eosinophils/Leukocytes Auto (Bld) [Pure # fraction] 0.0 E9/L Normal 0.0-0.5 [facility] Comment on above: Order Comment: Order Added by Discern Expert. Performed By: #### 2 827469, 2664990, 7095427, 14314188, 4901800, 0960091 #### [facility] [address] [place] [address] Lymphocytes/100 WBC (Bld) 9.8 % Low 14.0-50.0 [facility] Comment on above: Order Comment: Order Added by Discern Expert. Performed By: #### 2 399576, 3623577, 7935283, 38713410, 4739514, 1203037 #### [facility] [address] [place] [address] Lymphocytes/Leukocytes Auto (Bld) [Pure # fraction] 1.3 E9/L Normal 1.0-4.0 [facility] Comment on above: Order Comment: Order Added by Discern Expert. Performed By: #### 2 648468, 3184805, 5334097, 93576752, 0097852, 9329133 #### [facility] [address] [place] [address] Monocytes/100 WBC (Bld) 6.2 % Normal 4.0-14.0 [facility] Comment on above: Order Comment: Order Added by Discern Expert. Performed By: #### 2 333886, 8379288, 1439490, 87772372, 9982599, 7637089 #### [facility] [address] [place] [address] Monocytes/Leukocytes Auto (Bld) [Pure # fraction] 0.8 E9/L Normal 0.2-1.0 [facility] Comment on above: Order Comment: Order Added by Discern Expert. Performed By: #### 2 589153, 9775355, 2944302, 47215229, 6048642, 7128298 #### [facility] [address] [place] [address] Neutrophils/100 WBC (Bld) 83.8 % High 36.0-75.0 [facility] Comment on above: Order Comment: Order Added by Discern Expert. Performed By: #### 2 434467, 8941497, 3450490, 21808750, 9246720, 8808997 #### [facility] [address] [place] [address] Neutrophils/Leukocytes Auto (Bld) [Pure # fraction] 11.1 E9/L High 2.0-7.5 [facility] Comment on above: Order Comment: Order Added by Discern Expert. Performed By: #### 2 914360, 2870183, 2162805, 63495221, 0822349, 6912480 #### [facility] [address] [place] [address] BMPon 11-08-2022 Creatinine [Mass/Vol] 1.6 mg/dL High 0.5-1.3 [facility] Comment on above: Performed By: #### 2 547797, 4553092, 3309737, 37912101, 4599815, 9606385 #### [facility] [address] [place] [address] Urea nitrogen [Mass/Vol] 37 mg/dL High 5-21 [facility] Comment on above: Performed By: #### 2 120237, 4953339, 2038444, 88865544, 5125666, 5235558 #### [facility] [address] [place] [address] Urea nitrogen/Creatinine [Mass ratio] 23 No Units High 10-20 [facility] Comment on above: Performed By: #### 2 968227, 5890929, 9510109, 46372296, 6305547, 4620173 #### [facility] [address] [place] [address] Anion gap [Moles/Vol] 15 mmol/L Normal 6-16 [facility] Comment on above: Performed By: #### 2 820231, 0302599, 7161410, 27857683, 6687989, 9525976 #### [facility] [address] [place] [address] Calcium [Mass/Vol] 9.8 mg/dL Normal 8.9-11.1 [facility] Comment on above: Performed By: #### 2 111746, 3661271, 2781086, 25732164, 3733977, 1852725 #### [facility] [address] [place] [address] Chloride [Moles/Vol] 99 mmol/L Low 101-111 [facility] Comment on above: Performed By: #### 2 193255, 1390145, 1008628, 81434019, 8144033, 1244165 #### [facility] [address] [place] [address] CO2 [Moles/Vol] 27 mmol/L Normal 21-31 [facility] Comment on above: Performed By: #### 2 169899, 4786133, 6724223, 70964422, 8027343, 8825402 #### [facility] [address] [place] [address] Glucose [Mass/Vol] 121 mg/dL Normal 55-199 [facility] Comment on above: Result Comment: If t his glucose result represents a fasting glucose, interpretation should refer to the following reference range: 55-99 mg/dL Performed By: #### 2 063398, 4939444, 8868562, 30966592, 3712738, 0284070 #### [facility] [address] [place] [address] Potassium [Moles/Vol] 3.4 mmol/L Low 3.5-5.3 [facility] Comment on above: Performed By: #### 2 814194, 4368920, 8864213, 57246842, 1551211, 6132023 #### [facility] [address] [place] [address] Sodium [Moles/Vol] 138 mmol/L Normal 135-145 [facility] Comment on above: Performed By: #### 2 198409, 4296426, 8830133, 66827530, 7542307, 0811866 #### [facility] [address] [place] [address] CBC w/ Auto Diffon 3 Erythrocyte distribution width (RBC) [Ratio] 13.5 % Normal 10.9-14.2 [facility] Comment on above: Performed By: #### 2 814018, 5744187, 2557800, 89466978, 1800251, 0307101 #### [facility] [address] [place] [address] Hematocrit (Bld) [Volume fraction] 42.9 % Normal 37.7-49.0 [facility] Comment on above: Performed By: #### 2 262005, 6602507, 4283852, 84471861, 1884098, 6000211 #### [facility] [address] [place] [address] Hemoglobin (Bld) [Mass/Vol] 14.2 g/dL Normal 13.5-17.5 [facility] Comment on above: Performed By: #### 2 660575, 6783623, 0241454, 96052996, 6592537, 8720412 #### [facility] [address] [place] [address] MCH (RBC) [Entitic mass] 31.9 pg Normal 27.0-34.0 [facility] Comment on above: Performed By: #### 2 115706, 9402905, 5929563, 25898960, 9494902, 3918833 #### [facility] [address] [place] [address] MCHC (RBC) [Mass/Vol] 33.2 g/dL Normal 31.4-36.0 [facility] Comment on above: Performed By: #### 2 647300, 0987042, 1326389, 72868992, 7204825, 1238141 #### [facility] [address] [place] [address] MCV (RBC) [Entitic vol] 96.2 fL Normal 80.0-100.0 [facility] Comment on above: Performed By: #### 2 267720, 2614734, 6393605, 04540303, 8078777, 5880147 #### [facility] [address] [place] [address] Platelet mean volume (Bld) [Entitic vol] 8.4 fL Normal 6.4-10.8 [facility] Comment on above: Performed By: #### 2 312801, 5174071, 5745098, 93453178, 6633159, 0771712 #### [facility] [address] [place] [address] Platelets (Bld) [#/Vol] 193.0 E9/L Normal 150.0-500.0 [facility] Comment on above: Result Comment: Occa sional platelet clumps. Platelet count estimate appears normal on slide. Performed By: #### 2 653462, 4049766, 6189312, 96163705, 2688510, 9316124 #### [facility] [address] [place] [address] RBC (Bld) [#/Vol] 4.5 E12/L Normal 4.3-5.9 [facility] Comment on above: Performed By: #### 2 274490, 4013336, 7118956, 27069221, 9115960, 1158311 #### [facility] [address] [place] [address] WBC corrected for nucl RBC Auto (Bld) [#/Vol] 13.3 E9/L High 4.0-11.0 [facility] Comment on above: Performed By: #### 2 691838, 3848197, 7930662, 52828613, 8099382, 5423804 #### [facility] [address] [place] [address] CHEMISTRYOrdered By: SYSTEM SYSTEM on 11-08-2022 Albumin [...] 8.4 g/dL High 6.0 - 7.8 gm/dL [facility] Remisol CT Abdomen/Pelvis w/ Contras ton 11-08-2022 [...] 300 Contrast amount in ml's: 100 Normal [facility] Consent for Treatmenton Consent for Treatment [id number] Normal [facility] ED Clinical Summaryon 2022 ED Clinical Summary [place] [id number] ED Clinical Summary Person Information Name: AMOL TAYLOR [facility] Age: 67 Years : 1955 Sex: Male Language: Slovak PCP: CARSON MATAMOROS MD Marital Status: Single Visit Id: Visit Reason: Diarrhea; Seizure; Vomiting; POSS BOWEL OBSTRUCTION Speciality: Acuity: 3 Enc Type: Observation Med Service: Emergency Arrival: 11/08/2022 08:49:58 Discharge: LOS: 000 04:43 Checkin: 11/08/2022 08:49:58 Checkout: 11/08/2022 13:32:03 Dispo Type: Admitted as IP to this [facility] EVENTS: Event Name Event Status Request [...] 12:38:28 Patient Care Request 11/08/2022 12:38:28 ADDRESS: [address] [place] [id number] PHYS DOC NOTES: MEDICAL INFORMATION: Prescriptions Given: [...] kidney injury); Acute diarrhea; Acute vomiting Normal [facility] ED Note-Physicianon 11-09-19 ED Note-Physician Basic Information Time Seen: Hair Landa DO 11/08/2022 08:59 Chief Complaint pt to ER from [place] home with c/o diarrhea, vomiting, and seizure activity that started yesterday. pt nurse states he has had diminished bowel sounds. pt has hx of seizures, but more pronounced and frequent lasting a minute when ill. History of Present Illness 67-year-old male to the emergency department from his long term for diarrhea and vomiting. He has a [...] have a bowel obstruction based on their long term nurse not hearing bowel sounds in the [...] mL, 1000 (more content not included)... Normal [facility] Comment on above: Result Comment: Elec tronically Signed By: Hair Landa DO\.br\Date and Time Signed: 11/08/22 12:44 EDT ED Patient Education Noteon 11-08-2022 ED Patient Education Note Normal [facility] ED Patient Summaryon 023 ED Patient Summary [address] [address] Patient Discharge Instructions Person Information Name: AMOL TAYLOR Age: 67 Years Arrival Date: 11/08/2022 08:49:58 Discharge Diagnosis: JOSÉ MIGUEL (acute kidney injury); Acute diarrhea; Acute vomiting Primary Care Physician: CARSON MATAMOROS MD Provider Information Primary Provider: Hair Landa DO Advanced Child Care Attendant School:None The exam and treatment you received in the Emergency Department were for an urgent problem and are not intended as complete care. It is important that you follow up with a doctor, nurse practitioner, or physician?s export sales assistant for ongoing care. If your symptoms become [...] opioids can be used to help relieve flltdslq-mp-hrfiqk pain and are often prescribed following a [...] be struggling with addiction, tell your health care transition manager and ask for guidance or call SAM[employer]?S National Helpline at 6-694-538-FYOL. v Source: [place] Department of Health and Human Services/Center for Disease Control & Prevention [facility] Medications Given: Medica (more content not included)... Normal [facility] Hep Func Panelon 09-06-2023 Albumin [Mass/Vol] 4.4 g/dL Normal 3.3-5.0 [facility] Comment on above: Performed By: #### 2 838890, 4883321, 0387690, 68261187, 5735087, 0011816 #### [facility] [address] [place] [address] Albumin/Globulin (S) [Mass conc ratio] 1.1 Normal 1.1-2.2 [facility] Comment on above: Performed By: #### 2 136647, 2233617, 6892839, 36312466, 2718201, 4375219 #### [facility] [address] [place] [address] ALP [Catalytic activity/Vol] 115 Int._Unit/L High 21-98 [facility] Comment on above: Performed By: #### 2 698404, 1721372, 2923916, 50826950, 5384268, 6035473 #### [facility] [address] [place] [address] ALT No additional P-5'-P [Catalytic activity/Vol] 21 Int._Unit/L Normal 6-46 [facility] Comment on above: Performed By: #### 2 009629, 3282344, 8227567, 24628629, 2644819, 7458602 #### [facility] [address] [place] [address] AST [Catalytic activity/Vol] 22 Int._Unit/L Normal 5-43 [facility] Comment on above: Performed By: #### 2 992378, 8880692, 6142963, 38073982, 5167122, 5373788 #### [facility] [address] [place] [address] Bilirubin [Mass/Vol] 0.7 mg/dL Normal 0.0-1.1 [facility] Comment on above: Performed By: #### 2 699832, 5813640, 9743202, 34484672, 1860418, 0544731 #### [facility] [address] [place] [address] Bilirubin.direct [Mass/Vol] 0.2 mg/dL Normal 0.1-0.4 [facility] Comment on above: Performed By: #### 2 689814, 3989093, 9348621, 45627575, 2562838, 7479048 #### [facility] [address] [place] [address] Bilirubin.indirect [Mass or moles/Vol] 0.5 mg/dL Normal 0.1-0.9 [facility] Comment on above: Performed By: #### 2 638440, 1308249, 2602885, 36089713, 9115364, 3655734 #### [facility] [address] [place] [address] Globulin (S) [Mass/Vol] 4.0 g/dL Normal 1.4-4.0 [facility] Comment on above: Performed By: #### 2 337705, 8634078, 4503981, 58885816, 8930452, 6604047 #### [facility] [address] [place] [address] Protein [Mass/Vol] 8.4 g/dL High 6.0-7.8 [facility] Comment on above: Performed By: #### 2 004962, 3624806, 6957442, 10429648, 4344144, 6289631 #### [facility] [address] [place] [address] Lipase Levelon 11-08-2022 Lipase [Catalytic activity/Vol] 33 U/L Normal 13-58 [facility] Comment on above: Performed By: #### 2 311293, 1054303, 1190713, 32638658, 8457099, 9947242 #### [facility] [address] [place] [address] eGFRon 11-08-2022 GFR/1.73 sq M.predicted among non-blacks MDRD (S/P/Bld) [Vol rate/Area] 47 mL/min/1.73 m2 Low >=59 [facility] Comment on above: Order Comment: Order added by Discern Expert. Result Comment: Cruise Counselor maria c kidney disease could be indicated at eGFR's of less than 60 mL/min/1.73m2. Kidney failure is indicated at less than 15 mL/min/1.73m2. Performed By: #### 2 226571, 8344293, 1811351, 15618292, 3448437, 7309642 #### [facility] [address] [place] [address] CBC auto differentialon Basophils (Bld) [#/Vol] BON [...] (Bld) 58 % 36 - 65 % [facility] Nucleated RBC/100 WBC (Bld) [Ratio] 0.0 % 0.0 per 100 WBC [facility] Platelet mean volume (Bld) [Entitic vol] 9.1 fL 8.1 - 13.5 fL [facility] Platelets (Bld) [#/Vol] 145 10*3/uL [facility] RBC (Bld) [#/Vol] 2.90 10*6/uL Low 4.21 - 5.7 7 m/uL [facility] Segmented neutrophils/100 WBC (Bld) 3.48 % [facility] WBC other (Bld) [#/Vol] 6.0 [facility] CBC with Diffon 09-07-2022 Abs. Basophil <0.03 Normal 0.00-0.20 [facility] Comment on above: Performed By: #### YULIYA COUGHLIN, CDP #### [facility] [address] [place] [address] Dr. [place] 1985883 Program Planner: David Montez MD Abs.Imm.Granulocyte <0.03 Normal 0.00-0.30 [facility] Comment on above: Performed By: #### YULIYA COUGHLIN, CDP #### [address] [place] [address]883 Program Planner: David Montez MD Abs.Neutrophil (Seg) 3.48 k/uL Normal 1.50-8.10 [facility] Comment on above: Performed By: #### YULIYA COUGHLIN, CDP #### [facility] [address] [place] [address] [place] [address] Program Planner: David Montez MD Basophils/100 WBC (Bld) 0 % Normal 0-2 [facility] Comment on above: Performed By: #### YULIYA COUGHLIN, CDP #### [facility] [address] [place] [address] [place] [address] Program Planner: David Montez MD Eosinophils (Bld) [#/Vol] 0.21 10*3/uL Normal 0.00-0.44 [facility] Comment on above: Performed By: #### YULIYA COUGHLIN, CDP #### [address] [place], [place] 2702583 Program Planner: David Montez MD Eosinophils/100 WBC (Bld) 4 % Normal 1-4 [facility] Comment on above: Performed By: #### YULIYA COUGHLIN, CDP #### [address] [place], [place] 5342983 Program Planner: David Montez MD Erythrocyte distribution width (RBC) [Ratio] 12.8 % Normal 11.8-14.4 [facility] Comment on above: Performed By: #### YULIYA COUGHLIN, CDP #### [address] [place], [facility] Program Planner: David Montez MD Hematocrit (Bld) [Volume fraction] 28.9 % Low 40.7-50.3 [facility] Comment on above: Performed By: #### YULIYA COUGHLIN, CDP #### [address] [place], [place] 1017983 Program Planner: David Montez MD Hemoglobin (Bld) [Mass/Vol] 9.5 g/dL Low 13.0-17.0 [facility] Comment on above: Performed By: #### YULIYA COUGHLIN, CDP #### [address] [place], [place] [id number] Program Planner: David Montez MD Immature granulocytes/100 WBC (Bld) 0 % Normal 0 [facility] Comment on above: Performed By: #### YULIYA COUGHLIN, CDP #### [address] [place] [address] Program Planner: David Montez MD Lymphocytes (Bld) [#/Vol] 1.74 10*3/uL Normal 1.10-3.70 [facility] Comment on above: Performed By: #### YULIYA COUGHLIN, CDP #### [facility] [address] [place], [place] [id number] Program Planner: David Montez MD Lymphocytes/100 WBC (Bld) 29 % Normal 24-43 [facility] Comment on above: Performed By: #### YULIYA COUGHLIN, CDP #### [facility] [address] [place], [facility] Program Planner: David Montez MD MCH (RBC) [Entitic mass] 32.8 pg Normal 25.2-33.5 [facility] Comment on above: Performed By: #### YULIYA COUGHLIN, CDP #### [address] [place], [facility]83 Program Planner: David Montez MD MCHC (RBC) [Mass/Vol] 32.9 g/dL Normal 28.4-34.[address] [facility] Comment on above: Performed By: #### YULIYA COUGHLIN, CDP #### [address] [place], [place] [id number] Program Planner: David Montez MD MCV (RBC) [Entitic vol] 99.7 fL Normal 82.6-102.9 [facility] Comment on above: Performed By: #### YULIYA COUGHLIN, CDP #### [address] [address] [place], [place] [id number] Program Planner: David Montez MD Monocytes (Bld) [#/Vol] 0.55 10*3/uL Normal 0.10-1.20 [facility] Comment on above: Performed By: #### YULIYA COUGHLIN, CDP #### [facility] [address] [place] [address] Program Planner: David Montez MD Monocytes/100 WBC (Bld) 9 % Normal 3-12 [facility] Comment on above: Performed By: #### YULIYA COUGHLIN, CDP #### [facility] [address] [place], [place] [id number] Program Planner: David Montez MD Neutrophil (Seg) 58 % Normal 36-65 [facility] Comment on above: Performed By: #### YULIYA COUGHLIN, CDP #### [facility] [address] [place] [address] Program Planner: David Montez MD NRBC Automated 0.0 per 100 WBC Normal 0.0 [facility] Comment on above: Performed By: #### YULIYA COUGHLIN, CDP #### [facility] [address] [place], [place] [id number] Program Planner: David Montez MD Platelet mean volume (Bld) [Entitic vol] 9.1 fL Normal 8.1-13.5 [facility] Comment on above: Performed By: #### YULIYA COUGHLIN, CDP #### [address] [place], [place] [id number] Program Planner: David Montez MD Platelets (Bld) [#/Vol] 145 10*3/uL Normal 138-453 [facility] Comment on above: Performed By: #### YULIYA COUGHLIN, CDP #### [facility] [address] [place] [address] Program Planner: David Montez MD RBC (Bld) [#/Vol] 2.90 10*6/uL Low 4.21-5.77 [facility] Comment on above: Performed By: #### YULIYA COUGHLIN, CDP #### [facility] [address] [place] [address] ([address] Program Planner: David Montez MD WBC (Bld) [#/Vol] 6.0 10*3/uL Normal 3.5-11.3 [facility] Comment on above: Performed By: #### R YULIYA KENNEY, CDP #### [facility] [address] [place] [address] Program Planner: David Montez MD COVID-19, Rapidon 09-07-2022 SARS-CoV-2 (COVID-19) RdRp gene POLO+probe Ql (Resp) Not detected Not Detected [facility] Comment on above: Rapid NAAT: The specimen [...] management decisions. Fact sheet for Healthcare Providers: https://www.fda.gov/media/537858/download Fact sheet for Patients: https://www.fda.gov/media/874640/download Methodology: Isothermal Nucleic Acid Amplification Specimen Description .NASOPHARYNGEAL SWAB [facility] Comp Metabolic Pr/rfx MGon 0 09-07-2022 Albumin [Mass/Vol] 3.0 g/dL Low 3.5-5.2 [facility] Comment on above: Performed By: #### R YULIYA KENNEY, CDP #### [facility] [address] [place] [address] Program Planner: David Montez MD Albumin/Glob Ratio 1.0 Normal 1.0-2.5 [facility] Comment on above: Performed By: #### YULIYA COUGHLIN, CDP #### [facility] [address] [place] [address] Program Planner: David Montez MD Alkaline Phos 88 U/L Normal 40-129 [facility] Comment on above: Performed By: #### Rick KENNEY IPF, CDP #### [facility] [address] [place], [place] [id number] Program Planner: David Montez MD ALT [Catalytic activity/Vol] 23 U/L Normal 5-41 [facility] Comment on above: Performed By: #### Rick KENNEY IPF, CDP #### [facility] [address] [place], [place] [id number] Program Planner: David Montez MD Anion gap [Moles/Vol] 7 mmol/L Low 9-[address] [facility] Comment on above: Performed By: #### Rick KENNEY IPF, CDP #### [facility] [address] [place] [address] Program Planner: David Montez MD AST [Catalytic activity/Vol] 24 U/L Normal <40 [facility] Comment on above: Performed By: #### Rick KENNEY IPF, CDP #### [facility] [address] [place], [place] 8582183 Program Planner: David Montez MD Bilirubin [Mass/Vol] 0.3 mg/dL Normal 0.3-1.2 [facility] Comment on above: Performed By: #### Rick KENNEY IPF, CDP #### [facility] [address] [place], [place] 1998483 Program Planner: David Montez MD BUN/CRE Ratio 17 Normal 9-20 [facility] Comment on above: Performed By: #### Rick KENNEY, IPF, CDP #### [facility] [address] [place] [address] Program Planner: David Montez MD Calcium [Mass/Vol] 8.1 mg/dL Low 8.6-10.4 [facility] Comment on above: Performed By: #### R YULIYA KENNEY, CDP #### [facility] [address] [place], [place] 7798883 Program Planner: David Montez MD Chloride [Moles/Vol] 109 mmol/L High 98-107 [facility] Comment on above: Performed By: #### R YULIYA KENNEY, CDP #### [facility] [address] [place], [place] [id number] Program Planner: David Montez MD CO2 [Moles/Vol] 26 mmol/L Normal 20-31 [facility] Comment on above: Performed By: #### YULIYA COUGHLIN, CDP #### [facility] [address] [place], [place] [id number] Program Planner: David Montez MD Creatinine [Mass/Vol] 0.81 mg/dL Normal 0.70-1.[address] [facility] Comment on above: Performed By: #### YULIYA COUGHLIN, CDP #### [facility] [address] [place], [place] [id number] Program Planner: David Montez MD GFR/1.73 sq M.predicted among non-blacks MDRD (S/P/Bld) [Vol rate/Area] mL/min/{1.73_m2} Normal >60 [facility] Comment on above: Result Comment: These [...] affects renal tubular secretion. Performed By: #### R YULIYA KENNEY, CDP #### [facility] [address] [place] [address] Program Planner: David Montez MD Glucose [Mass/Vol] 97 mg/dL Normal 70-99 [facility] Comment on above: Performed By: #### R ANNE MARIE, IPF, CDP #### [facility] [address] [place] [address] Program Planner: David Montez MD Potassium [Moles/Vol] 3.7 mmol/L Normal 3.7-5.[address] [facility] Comment on above: Performed By: #### R ANNE MARIE, IPF, CDP #### [facility] [address] [place], [place] 5703183 Program Planner: David Montez MD Protein [Mass/Vol] 5.9 g/dL Low 6.4-8.3 [facility] Comment on above: Performed By: #### R ANNE MARIE IPF, CDP #### [facility] [address] [place] [address] Program Planner: David Montez MD Sodium [Moles/Vol] 142 mmol/L Normal 135-144 [facility] Comment on above: Performed By: #### R ANNE MARIE IPF, CDP #### [facility] [address] [place] [address] [place] [address] Program Planner: David Montez MD Urea nitrogen [Mass/Vol] 14 mg/dL Normal 8-23 [facility] Comment on above: Performed By: #### R ANNE MARIE, IPF, CDP #### [facility] [address] [place] [address] Program Planner: David Montez MD Comprehensive Metabolic Pane l w/ Reflex to MGon 09-07-2022 Albumin [Mass/Vol] 3.0 g/dL Low 3.5 - 5.2 g/dL [facility] Albumin/Globulin [Mass ratio] 1.0 {ratio} 1.0 - 2.5 [facility] ALP [Catalytic activity/Vol] 88 U/L 40 - 129 U/L [facility] ALT [Catalytic activity/Vol] 23 U/L 5 - 41 U/L [facility] Anion gap [Moles/Vol] 7 mmol/L Low 9 - 17 mmol/L [facility] AST [Catalytic activity/Vol] 24 U/L NINF - 40 U/L [facility] Bilirubin [Mass/Vol] 0.3 mg/dL 0.3 - 1 .2 mg/dL [facility] Calcium [Mass/Vol] 8.1 mg/dL Low 8.6 - 10. 4 mg/dL [facility] Chloride [Moles/Vol] 109 mmol/L High 98 - 10 7 mmol/L [facility] CO2 [Moles/Vol] 26 mmol/L 20 - 31 mmol/L [facility] Creatinine [Mass/Vol] 0.81 mg/dL 0.70 - 1.20 mg/dL [facility] GFR/1.73 sq M.predicted MDRD (S/P/Bld) [Vol rate/Area] - PINF [facility] Comment on above: These results are not [...] [Mass/Vol] 97 mg/dL 70 - 99 mg/dL [facility] Interpretation and review of laboratory results Abnormal [facility] Potassium [Moles/Vol] 3.7 mmol/L 3.7 - 5.3 mmol/L [facility] Protein [Mass/Vol] 5.9 g/dL Low 6.4 - 8.3 g/dL [facility] Sodium [Moles/Vol] 142 mmol/L 135 - 144 mmol/L [facility] Urea nitrogen [Mass/Vol] 14 mg/dL 8 - 23 mg/dL [facility] Urea nitrogen/Creatinine [Mass ratio] 17 mg/mg 9 - 20 [facility] EKG Rhythm Stripon 3 KT [facility] [id number] 09-07-2022 SARS-CoV-2 (COVID-19) RNA POLO+probe Ql (Unsp spec) Not detected Normal NOTDET [facility] Comment on above: Result Comment: Rapid NAAT: [...] management decisions. Fact sheet for Healthcare Providers: https://www.fda.gov/media/170167/download Fact sheet for Patients: https://www.fda.gov/media/972504/download Methodology: Isothermal Nucleic Acid Amplification Performed By: #### R EJEC, IPF, CDP #### [facility] [address] [place] [address] [place] [address] Program Planner: David Montez MD XR ABDOMEN (2 VIEWS)on [...] Kristan Bee DO 09/07/22 Final result Normal [facility] Scattered gas in small and large bowel loops, suggesting resolving small-bowel obstruction. [facility] RIS CONSOLIDATED EXAMINATION: 2 XRAY VIEWS OF THE ABDOMEN 09/07/2022 7:35 am COMPARISON: Abdominal radiographs dated 09/06/2022 and 09/05/2022 HISTORY: ORDERING SYSTEM PROVIDED HISTORY: sbo TECHNOLOGIST PROVIDED HISTORY: Sbo FINDINGS: There is scattered gas in small and large bowel loops. No abnormal bowel distention appreciated on the current radiographs. Visualized lung bases are clear. [facility] RIS CONSOLIDATED Kristan Bee, DO - 09/07/2022 EXAMINATION: 2 XRAY VIEWS [...] large bowel loops, suggesting resolving small-bowel obstruction. [facility] Radiology Study observation (narrative) [facility] CBC auto differentialon 07-0 Basophils (Bld) [#/Vol] 0.04 10*3/uL [facility] Basophils/100 WBC (Bld) 1 % 0 - 2 % [facility] Eosinophils (Bld) [#/Vol] 0.11 10*3/uL [facility] Eosinophils/100 WBC (Bld) 2 % 1 - 4 % [facility] Erythrocyte distribution width (RBC) [Ratio] 12.7 % 11.8 - 14.4 % [facility] Hematocrit (Bld) [Volume fraction] 29.8 % Low 40.7 - 50.3 % [facility] Hemoglobin (Bld) [Mass/Vol] 9.8 g/dL Low 13.0 - 17.0 g/dL [facility] Immature granulocytes (Bld) [#/Vol] [facility] Immature granulocytes/100 WBC (Bld) 0 % 0 [facility] Interpretation and review of laboratory results Abnormal [facility] Lymphocytes/100 WBC (Bld) 20 % Low 24 - 43 % [facility] Lymphocytes/100 WBC (Bld) 1.36 % [facility] MCH (RBC) [Entitic mass] 33.0 pg 25.2 - 33.5 pg [facility] MCHC (RBC) [Mass/Vol] 32.9 g/dL 28.4 - 34.8 g/dL [facility] MCV (RBC) [Entitic vol] 100.3 fL 82.6 - 102.9 fL [facility] Monocytes/100 WBC (Bld) 9 % 3 - 12 % [facility] Monocytes/100 WBC (Bld) 0.62 % [facility] Neutrophils/100 WBC (Bld) 69 % High 36 - 65 % [facility] Nucleated RBC/100 WBC (Bld) [Ratio] 0.0 % 0.0 per 100 WBC [facility] Platelet mean volume (Bld) [Entitic vol] 9.6 fL 8.1 - 13.5 fL [facility] Platelets (Bld) [#/Vol] 132 10*3/uL Low [facility] RBC (Bld) [#/Vol] 2.97 10*6/uL Low 4.21 - 5.7 7 m/uL [facility] Segmented neutrophils/100 WBC (Bld) 4.79 % [facility] WBC other (Bld) [#/Vol] 6.9 [facility] CBC with Diffon 09-06-2022 Abs. Basophil 0.04 k/uL Normal 0.00-0.20 [facility] Comment on above: Performed By: #### C DP, CMPX #### [facility] [address] [place] [address] [place] [address] Program Planner: David Montez MD Abs.Imm.Granulocyte <0.03 Normal 0.00-0.30 [facility] Comment on above: Performed By: #### C DP, CMPX #### [facility] [address] [place] [address] Program Planner: David Montez MD Abs.Neutrophil (Seg) 4.79 k/uL Normal 1.50-8.10 [facility] Comment on above: Performed By: #### C DP, CMPX #### [facility] [address] [place] [address] [place] [place], [place] [id number] Program Planner: David Montez MD Basophils/100 WBC (Bld) 1 % Normal 0-2 [facility] Comment on above: Performed By: #### C DP, CMPX #### [address] [place], [facility]83 Program Planner: David Montez MD Eosinophils (Bld) [#/Vol] 0.11 10*3/uL Normal 0.00-0.44 [facility] Comment on above: Performed By: #### C DP, CMPX #### [address] [place], [facility]83 Program Planner: David Montez MD Eosinophils/100 WBC (Bld) 2 % Normal 1-4 [facility] Comment on above: Performed By: #### C DP, CMPX #### [address] [place], [facility]83 Program Planner: David Montez MD Erythrocyte distribution width (RBC) [Ratio] 12.7 % Normal 11.8-14.4 [facility] Comment on above: Performed By: #### C DP, CMPX #### [address] [place], [facility]83 Program Planner: David Montez MD Hematocrit (Bld) [Volume fraction] 29.8 % Low 40.7-50.3 [facility] Comment on above: Performed By: #### C DP, CMPX #### [address] [place] [address] Program Planner: David Montez MD Hemoglobin (Bld) [Mass/Vol] 9.8 g/dL Low 13.0-17.0 [facility] Comment on above: Performed By: #### C DP, CMPX #### [address] [place] [id number] Program Planner: David Montez MD Immature granulocytes/100 WBC (Bld) 0 % Normal 0 [facility] Comment on above: Performed By: #### C DP, CMPX #### [facility] [address] [place], [place] 3967983 Program Planner: David Montez MD Lymphocytes (Bld) [#/Vol] 1.36 10*3/uL Normal 1.10-3.70 [facility] Comment on above: Performed By: #### C DP, CMPX #### [facility] [address] [place], [place] [address] Program Planner: David Montez MD Lymphocytes/100 WBC (Bld) 20 % Low 24-43 [facility] Comment on above: Performed By: #### C DP, CMPX #### [address] [place], [facility]83 Program Planner: David Montez MD MCH (RBC) [Entitic mass] 33.0 pg Normal 25.2-33.5 [facility] Comment on above: Performed By: #### C DP, CMPX #### [address] [place], [place] [id number] Program Planner: David Montez MD MCHC (RBC) [Mass/Vol] 32.9 g/dL Normal 28.4-34.[address] [facility] Comment on above: Performed By: #### C DP, CMPX #### [facility] [address] [place], [place] 8431683 Program Planner: David Montez MD MCV (RBC) [Entitic vol] 100.3 fL Normal 82.6-102.9 [facility] Comment on above: Performed By: #### C DP, CMPX #### [facility] [address] [place], [facility]83 Program Planner: David Montez MD Monocytes (Bld) [#/Vol] 0.62 10*3/uL Normal 0.10-1.20 [facility] Comment on above: Performed By: #### C DP, CMPX #### [facility] [address] [place], [place] [id number] Program Planner: David Montez MD Monocytes/100 WBC (Bld) 9 % Normal 3-12 [facility] Comment on above: Performed By: #### C DP, CMPX #### [facility] [address] [place] [address] Program Planner: David Montez MD Neutrophil (Seg) 69 % High 36-65 [facility] Comment on above: Performed By: #### C DP, CMPX #### [facility] [address] [place], [place] 8607483 Program Planner: David Montez MD NRBC Automated 0.0 per 100 WBC Normal 0.0 [facility] Comment on above: Performed By: #### C DP, CMPX #### [facility] [address] [place] [address] Program Planner: David Montez MD Platelet mean volume (Bld) [Entitic vol] 9.6 fL Normal 8.1-13.5 [facility] Comment on above: Performed By: #### C DP, CMPX #### [facility] [address] [place] [address] Program Planner: David Montez MD Platelets (Bld) [#/Vol] 132 10*3/uL Low 138-453 [facility] Comment on above: Performed By: #### C DP, CMPX #### [facility] [address] [place] [address] Program Planner: David Montez MD RBC (Bld) [#/Vol] 2.97 10*6/uL Low 4.21-5.77 [facility] Comment on above: Performed By: #### C DP, CMPX #### [facility] [address] [place], [place] 8561083 Program Planner: David Montez MD WBC (Bld) [#/Vol] 6.9 10*3/uL Normal 3.5-11.3 [facility] Comment on above: Performed By: #### C DP, CMPX #### [facility] [address] [place], [place] [id number] Program Planner: David Montez MD Comp Metabolic Pr/rfx MGon 0 - Albumin [Mass/Vol] 3.2 g/dL Low 3.5-5.2 [facility] Comment on above: Performed By: #### C DP, CMPX #### [facility] [address] [place], [place] 4541983 Program Planner: David Montez MD Albumin/Glob Ratio 1.0 Normal 1.0-2.5 [facility] Comment on above: Performed By: #### C DP, CMPX #### [facility] [address] [place], [place] 4425883 Program Planner: David Montez MD Alkaline Phos 91 U/L Normal 40-129 [facility] Comment on above: Performed By: #### C DP, CMPX #### [facility] [address] [place], [place] [id number] Program Planner: David Montez MD ALT [Catalytic activity/Vol] 16 U/L Normal 5-41 [facility] Comment on above: Performed By: #### C DP, CMPX #### [facility] [address] [place] [address] Program Planner: David Montez MD Anion gap [Moles/Vol] 9 mmol/L Normal 9-[address] [facility] Comment on above: Performed By: #### C DP, CMPX #### [facility] [address] [place], [place] 6828683 Program Planner: David Motnez MD AST [Catalytic activity/Vol] 20 U/L Normal <40 [facility] Comment on above: Performed By: #### C DP, CMPX #### [facility] [address] [place], [place] 8049083 Program Planner: David Montez MD Bilirubin [Mass/Vol] 0.7 mg/dL Normal 0.3-1.2 [facility] Comment on above: Performed By: #### C DP, CMPX #### [facility] [address] [place], [place] 1211783 Program Planner: David Montez MD BUN/CRE Ratio 28 High 9-20 [facility] Comment on above: Performed By: #### C DP, CMPX #### [facility] [address] [place], [place] 2372983 Program Planner: David Montez MD Calcium [Mass/Vol] 8.3 mg/dL Low 8.6-10.4 [facility] Comment on above: Performed By: #### C DP, CMPX #### [facility] [address] [place] [address] [place], [place] 5450083 Program Planner: David Montez MD Chloride [Moles/Vol] 108 mmol/L High 98-107 [facility] Comment on above: Performed By: #### C DP, CMPX #### [facility] [address] [place], [place] 8983683 Program Planner: David Montez MD CO2 [Moles/Vol] 25 mmol/L Normal 20-31 [facility] Comment on above: Performed By: #### C DP, CMPX #### [facility] [address] [place] [address] Program Planner: David Montez MD Creatinine [Mass/Vol] 0.68 mg/dL Low 0.70-1.[address] [facility] Comment on above: Performed By: #### C DP, CMPX #### [address] [place] [address] Program Planner: David Montez MD GFR/1.73 sq M.predicted among non-blacks MDRD (S/P/Bld) [Vol rate/Area] mL/min/{1.73_m2} Normal >60 [facility] Comment on above: Result Comment: These [...] Performed By: #### C DP, CMPX #### [address] [place] [address] Program Planner: David Montez MD Glucose [Mass/Vol] 84 mg/dL Normal 70-99 [facility] Comment on above: Performed By: #### C DP, CMPX #### [address] [place] [address] Program Planner: David Montez MD Potassium [Moles/Vol] 3.6 mmol/L Low 3.7-5.[address] [facility] Comment on above: Performed By: #### C DP, CMPX #### [address] [place] [address] Program Planner: David Montez MD Protein [Mass/Vol] 6.5 g/dL Normal 6.4-8.3 [facility] Comment on above: Performed By: #### C DP, CMPX #### [address] [place] [address] Program Planner: David Montez MD Sodium [Moles/Vol] 142 mmol/L Normal 135-144 [facility] Comment on above: Performed By: #### C DP, CMPX #### [facility] [address] [place] [address] Program Planner: David Montez MD Urea nitrogen [Mass/Vol] 19 mg/dL Normal 8-23 [facility] Comment on above: Performed By: #### C DP, CMPX #### [facility] [address] [place] [address] Program Planner: David Montez MD Comprehensive Metabolic Pane l w/ Reflex to MGon 09-06-2022 Albumin [Mass/Vol] 3.2 g/dL Low 3.5 - 5.2 g/dL [facility] Albumin/Globulin [Mass ratio] 1.0 {ratio} 1.0 - 2.5 [facility] ALP [Catalytic activity/Vol] 91 U/L 40 - 129 U/L [facility] ALT [Catalytic activity/Vol] 16 U/L 5 - 41 U/L [facility] Anion gap [Moles/Vol] 9 mmol/L 9 - 17 mmol/L [facility] AST [Catalytic activity/Vol] 20 U/L NINF - 40 U/L [facility] Bilirubin [Mass/Vol] 0.7 mg/dL 0.3 - 1 .2 mg/dL [facility] Calcium [Mass/Vol] 8.3 mg/dL Low 8.6 - 10. 4 mg/dL [facility] Chloride [Moles/Vol] 108 mmol/L High 98 - 10 7 mmol/L [facility] CO2 [Moles/Vol] 25 mmol/L 20 - 31 mmol/L [facility] Creatinine [Mass/Vol] 0.68 mg/dL Low 0.70 - 1.20 mg/dL [facility] GFR/1.73 sq M.predicted MDRD (S/P/Bld) [Vol rate/Area] - PINF [facility] Comment on above: These results are not [...] [Mass/Vol] 84 mg/dL 70 - 99 mg/dL [facility] Interpretation and review of laboratory results Abnormal [facility] Potassium [Moles/Vol] 3.6 mmol/L Low 3.7 - 5.3 mmol/L [facility] Protein [Mass/Vol] 6.5 g/dL 6.4 - 8.3 g/dL [facility] Sodium [Moles/Vol] 142 mmol/L 135 - 144 mmol/L [facility] Urea nitrogen [Mass/Vol] 19 mg/dL 8 - 23 mg/dL [facility] Urea nitrogen/Creatinine [Mass ratio] 28 mg/mg High 9 - 20 [facility] EKG Rhythm Stripon [facility] [facility] XR ABDOMEN (KUB) (SINGLE AP VIEW)on 09-06-2022 [...] by: Anton Dubon MD Signed by: Anton Dubon MD 09/06/22 Final result Normal [facility] Improving/resolving small bowel obstruction [facility] RIS [...] changes of the spine. Small pelvic phleboliths. [facility] Anton Garcia MD - 09/06/2022 EXAMINATION: ONE [...] pelvic phleboliths. IMPRESSION: Improving/resolving small bowel obstruction [facility] Study [facility] (narrative) [facility] [employer] XR ABDOMEN (KUB) (SINGLE AP VIEW)Ordered By: Anton Dubon on 09-06-2022 [employer] Work Phone: CBC auto differentialon 07-0 Basophils (Bld) [#/Vol] 0.03 10*3/uL [facility] Basophils/100 WBC (Bld) 0 % 0 - 2 % [facility] Eosinophils (Bld) [#/Vol] [facility] Eosinophils/100 WBC (Bld) 0 % Low 1 - 4 % [facility] Erythrocyte distribution width (RBC) [Ratio] 13.0 % 11.8 - 14.4 % [address] [facility] Hematocrit (Bld) [Volume fraction] 32.0 % Low 40.7 - 50.3 % [facility] Hemoglobin (Bld) [Mass/Vol] 10.5 g/dL Low 13.0 - 17.0 g/dL [facility] Immature granulocytes (Bld) [#/Vol] 0.04 10*3/uL [facility] Immature granulocytes/100 WBC (Bld) 0 % 0 [facility] Interpretation and review of laboratory results Abnormal [facility] Lymphocytes/100 WBC (Bld) 11 % Low 24 - 43 % [facility] Lymphocytes/100 WBC (Bld) 1.34 % [facility] MCH (RBC) [Entitic mass] 32.7 pg 25.2 - 33.5 pg [facility] MCHC (RBC) [Mass/Vol] 32.8 g/dL 28.4 - 34.8 g/dL [facility] MCV (RBC) [Entitic vol] 99.7 fL 82.6 - 102.9 fL [facility] Monocytes/100 WBC (Bld) 8 % 3 - 12 % [facility] Monocytes/100 WBC (Bld) 1.01 % [facility] Neutrophils/100 WBC (Bld) 80 % High 36 - 65 % [facility] Nucleated RBC/100 WBC (Bld) [Ratio] 0.0 % 0.0 per 100 WBC [facility] Platelet mean volume (Bld) [Entitic vol] 9.2 fL 8.1 - 13.5 fL [facility] Platelets (Bld) [#/Vol] 147 10*3/uL [facility] RBC (Bld) [#/Vol] 3.21 10*6/uL Low 4.21 - 5.7 7 m/uL [facility] Segmented neutrophils/100 WBC (Bld) 9.62 % High [facility] WBC other (Bld) [#/Vol] 12.1 High [facility] CBC with Diffon 09-05-2022 Abs. Basophil 0.03 k/uL Normal 0.00-0.20 [facility] Comment on above: Performed By: #### R EJEC, IPF, CDP #### [facility] [address] [place] [address] [place] [place], [place] [id number] Program Planner: David Montez MD Abs. Eosinophil <0.03 Normal 0.00-0.44 [facility] Comment on above: Performed By: #### R YULIYA KENNEY, CDP #### [address] [place], [place] [id number] Program Planner: David Montez MD Abs.Imm.Granulocyte 0.04 k/uL Normal 0.00-0.30 [facility] Comment on above: Performed By: #### YULIYA COUGHLIN, CDP #### [address] [place], [place] [id number] Program Planner: David Montez MD Abs.Neutrophil (Seg) 9.62 k/uL High 1.50-8.10 [facility] Comment on above: Performed By: #### R YULIYA KENNEY, CDP #### [address] [place], [place] [id number] Program Planner: David Montez MD Basophils/100 WBC (Bld) 0 % Normal 0-2 [facility] Comment on above: Performed By: #### R YULIYA KENNEY, CDP #### [address] [place], [place] 3218383 Program Planner: David Montez MD Eosinophils/100 WBC (Bld) 0 % Low 1-4 [facility] Comment on above: Performed By: #### R YULIYA KENNEY, CDP #### [facility] [address] [place] [address] [place] [address] Program Planner: David Montez MD Erythrocyte distribution width (RBC) [Ratio] 13.0 % Normal 11.8-14.4 [facility] Comment on above: Performed By: #### R YULIYA KENNEY, CDP #### [address] [place], [place] [id number] Program Planner: David Montez MD Hematocrit (Bld) [Volume fraction] 32.0 % Low 40.7-50.3 [facility] Comment on above: Performed By: #### YULIYA COUGHLIN, CDP #### [facility] [address] [place], [place] 8555083 Program Planner: David Montez MD Hemoglobin (Bld) [Mass/Vol] 10.5 g/dL Low 13.0-17.0 [facility] Comment on above: Performed By: #### YULIYA COUGHLIN, CDP #### [facility] [address] [place], [place] [id number] Program Planner: David Montez MD Immature granulocytes/100 WBC (Bld) 0 % Normal 0 [facility] Comment on above: Performed By: #### YULIYA COUGHLIN, CDP #### [address] [place], [facility]83 Program Planner: David Montez MD Lymphocytes (Bld) [#/Vol] 1.34 10*3/uL Normal 1.10-3.70 [facility] Comment on above: Performed By: #### YULIYA COUGHLIN, CDP #### [address] [place], [place] [id number] Program Planner: David Montez MD Lymphocytes/100 WBC (Bld) 11 % Low 24-43 [facility] Comment on above: Performed By: #### YULIYA COUGHLIN, CDP #### [facility] [address] [place], [place] 7327483 Program Planner: David Montez MD MCH (RBC) [Entitic mass] 32.7 pg Normal 25.2-33.5 [facility] Comment on above: Performed By: #### YULIYA COUGHLIN, CDP #### [facility] [address] [place], [facility]83 Program Planner: David Montez MD MCHC (RBC) [Mass/Vol] 32.8 g/dL Normal 28.4-34.[address] [facility] Comment on above: Performed By: #### YULIYA COUGHLIN, CDP #### [address] [place], [place] [id number] Program Planner: David Montez MD MCV (RBC) [Entitic vol] 99.7 fL Normal 82.6-102.9 [facility] Comment on above: Performed By: #### YULIYA COUGHLIN, CDP #### [address] [place], [place] [id number] Program Planner: David Montez MD Monocytes (Bld) [#/Vol] 1.01 10*3/uL Normal 0.10-1.20 [facility] Comment on above: Performed By: #### YULIYA COUGHLIN, CDP #### [address] [place], [place] 7282583 Program Planner: David Montez MD Monocytes/100 WBC (Bld) 8 % Normal 3-12 [facility] Comment on above: Performed By: #### YULIYA COUGHLIN, CDP #### [address] [place], [place] 2882183 Program Planner: David Montez MD Neutrophil (Seg) 80 % High 36-65 [facility] Comment on above: Performed By: #### YULIYA COUGHLIN, CDP #### [address] [place], [place] 4842683 Program Planner: David Montez MD NRBC Automated 0.0 per 100 WBC Normal 0.0 [facility] Comment on above: Performed By: #### YULIYA COUGHLIN, CDP #### [address] [place], [place] 6428983 Program Planner: David Montez MD Platelet mean volume (Bld) [Entitic vol] 9.2 fL Normal 8.1-13.5 [facility] Comment on above: Performed By: #### R ANNE MARIE, IPF, CDP #### [facility] [address] [place], [place] 8414583 Program Planner: David Montez MD Platelets (Bld) [#/Vol] 147 10*3/uL Normal 138-453 [facility] Comment on above: Performed By: #### R ANNE MARIE, IPF, CDP #### [facility] [address] [place], [place] 6661283 Program Planner: David Montez MD RBC (Bld) [#/Vol] 3.21 10*6/uL Low 4.21-5.77 [facility] Comment on above: Performed By: #### Rick KENNEY, IPF, CDP #### [address] [place], [place] 3932083 Program Planner: David Montez MD WBC (Bld) [#/Vol] 12.1 10*3/uL High 3.5-11.3 [facility] Comment on above: Performed By: #### YULIYA COUGHLIN, CDP #### [address] [place], [place] 0764283 Program Planner: David Montez MD Comp Metabolic Pr/rfx MGon 0 - Albumin [Mass/Vol] 3.7 g/dL Normal 3.5-5.2 [facility] Comment on above: Performed By: #### R ANNE MARIE, IPF, CDP #### [facility] [address] [place], [place] 7058383 Program Planner: David Montez MD Albumin/Glob Ratio 1.2 Normal 1.0-2.5 [facility] Comment on above: Performed By: #### Rick KENNEY IPF, CDP #### [facility] [address] [place] [address] Program Planner: David Montez MD Alkaline Phos 98 U/L Normal 40-129 [facility] Comment on above: Performed By: #### Rick KENNEY IPF, CDP #### [facility] [address] [place], [place] 7184383 Program Planner: David Montez MD ALT [Catalytic activity/Vol] 12 U/L Normal 5-41 [facility] Comment on above: Performed By: #### Rick KENNEY IPF, CDP #### [facility] [address] [place], [place] 6582983 Program Planner: David Montez MD Anion gap [Moles/Vol] 12 mmol/L Normal 9-[address] [facility] Comment on above: Performed By: #### Rick KENNEY IPF, CDP #### [facility] [address] [place], [place] 9371683 Program Planner: David Montez MD AST [Catalytic activity/Vol] 13 U/L Normal <40 [facility] Comment on above: Performed By: #### YULIYA COUGHLIN, CDP #### [facility] [address] [place], [place] 8006683 Program Planner: David Montez MD Bilirubin [Mass/Vol] 0.8 mg/dL Normal 0.3-1.2 [facility] Comment on above: Performed By: #### YULIYA COUGHLIN, CDP #### [facility] [address] [place], [place] 3642783 Program Planner: David Montez MD BUN/CRE Ratio 22 High 9-20 [facility] Comment on above: Performed By: #### Rick KENNEY IPF, CDP #### [facility] [address] [place] [address] Program Planner: David Montez MD Calcium [Mass/Vol] 8.7 mg/dL Normal 8.6-10.4 [facility] Comment on above: Performed By: #### R EJEC, IPF, CDP #### [facility] [address] [place] [address] Program Planner: David Montez MD Chloride [Moles/Vol] 104 mmol/L Normal 98-107 [facility] Comment on above: Performed By: #### YULIYA COUGHLIN, CDP #### [facility] [address] [place] [address] Program Planner: David Montez MD CO2 [Moles/Vol] 25 mmol/L Normal 20-31 [facility] Comment on above: Performed By: #### YULIYA COUGHLIN, CDP #### [facility] [address] [place] [address] Program Planner: David Montez MD Creatinine [Mass/Vol] 0.85 mg/dL Normal 0.70-1.[address] [facility] Comment on above: Performed By: #### YULIYA COUGHLIN, CDP #### [facility] [address] [place] [address] Program Planner: David Montez MD GFR/1.73 sq M.predicted among non-blacks MDRD (S/P/Bld) [Vol rate/Area] mL/min/{1.73_m2} Normal >60 [facility] Comment on above: Result Comment: These [...] Performed By: #### YULIYA COUGHLIN, CDP #### [facility] [address] [place] [address] Program Planner: David Montez MD Glucose [Mass/Vol] 94 mg/dL Normal 70-99 [facility] Comment on above: Performed By: #### R EJEC, IPF, CDP #### [facility] [address] [place] [address] Program Planner: David Montez MD Potassium [Moles/Vol] 3.7 mmol/L Normal 3.7-5.[address] [facility] Comment on above: Performed By: #### R ANNE MARIE IPF, CDP #### [facility] [address] [place], [place] [id number] Program Planner: David Montez MD Protein [Mass/Vol] 6.8 g/dL Normal 6.4-8.3 [facility] Comment on above: Performed By: #### Rick KENNEY IPF, CDP #### [facility] [address] [place] [address] [place] [address] Program Planner: David Montez MD Sodium [Moles/Vol] 141 mmol/L Normal 135-144 [facility] Comment on above: Performed By: #### Rick KENNEY IPF, CDP #### [facility] [address] [place] [address] [place] [address] Program Planner: David Montez MD Urea nitrogen [Mass/Vol] 19 mg/dL Normal 8-23 [facility] Comment on above: Performed By: #### Rick KENNEY IPF, CDP #### [facility] [address] [place] [address] Program Planner: David Montez MD Comprehensive Metabolic Pane l w/ Reflex to on 09-05-2022 Albumin [Mass/Vol] 3.7 g/dL 3.5 - 5.2 g/dL [facility] Albumin/Globulin [Mass ratio] 1.2 {ratio} 1.0 - 2.5 [facility] ALP [Catalytic activity/Vol] 98 U/L 40 - 129 U/L [facility] ALT [Catalytic activity/Vol] 12 U/L 5 - 41 U/L [facility] Anion gap [Moles/Vol] 12 mmol/L 9 - 17 mmol/L [facility] AST [Catalytic activity/Vol] 13 U/L NINF - 40 U/L [facility] Bilirubin [Mass/Vol] 0.8 mg/dL 0.3 - 1 .2 mg/dL [facility] Calcium [Mass/Vol] 8.7 mg/dL 8.6 - 10. 4 mg/dL [facility] Chloride [Moles/Vol] 104 mmol/L 98 - 10 7 mmol/L [facility] CO2 [Moles/Vol] 25 mmol/L 20 - 31 mmol/L [facility] Creatinine [Mass/Vol] 0.85 mg/dL 0.70 - 1.20 mg/dL [facility] GFR/1.73 sq M.predicted MDRD (S/P/Bld) [Vol rate/Area] - PINF [facility] Comment on above: These results are not [...] [Mass/Vol] 94 mg/dL 70 - 99 mg/dL [facility] Interpretation and review of laboratory results Abnormal [facility] Potassium [Moles/Vol] 3.7 mmol/L 3.7 - 5.3 mmol/L [facility] Protein [Mass/Vol] 6.8 g/dL 6.4 - 8.3 g/dL [facility] Sodium [Moles/Vol] 141 mmol/L 135 - 144 mmol/L [facility] Urea nitrogen [Mass/Vol] 19 mg/dL 8 - 23 mg/dL [facility] Urea nitrogen/Creatinine [Mass ratio] 22 mg/mg High 9 - 20 [facility] EKG Rhythm Stripon 3 [facility] XR ABDOMEN (2 VIEWS)on 09-05 XR ABDOMEN [...] Gagan Rowe MD 09/05/22 Final result Normal [facility] 1. Persistent small bowel obstruction. [facility] RIS CONSOLIDATED EXAMINATION: TWO XRAY VIEWS OF [...] Atelectasis is noted in the lung bases. [facility] CONSOLIDATED Gagan Rowe MD [...] bases. IMPRESSION: 1. Persistent small bowel obstruction. [facility] Radiology Study observation (narrative) [facility] XR ABDOMEN (2 VIEWS)Ordered By: Gagan Rowe on 09-05-2022 [facility] Work Phone: CBC auto differentialon 07-0 Basophils (Bld) [#/Vol] 0.06 10*3/uL [facility] Basophils/100 WBC (Bld) 1 % 0 - 2 % [facility] Eosinophils (Bld) [#/Vol] 0.05 10*3/uL [facility] Eosinophils/100 WBC (Bld) 0 % Low 1 - 4 % [facility] Erythrocyte distribution width (RBC) [Ratio] 13.2 % 11.8 - 14.4 % [facility] Hematocrit (Bld) [Volume fraction] 33.4 % Low 40.7 - 50.3 % [facility] Hemoglobin (Bld) [Mass/Vol] 11.1 g/dL Low 13.0 - 17.0 g/dL [facility] Immature granulocytes (Bld) [#/Vol] 0.05 10*3/uL [facility] Immature granulocytes/100 WBC (Bld) 0 % 0 [facility] Interpretation and review of laboratory results Abnormal [facility] Lymphocytes/100 WBC (Bld) 13 % Low 24 - 43 % [facility] Lymphocytes/100 WBC (Bld) 1.71 % [facility] MCH (RBC) [Entitic mass] 32.7 pg 25.2 - 33.5 pg [facility] MCHC (RBC) [Mass/Vol] 33.2 g/dL 28.4 - 34.8 g/dL [facility] MCV (RBC) [Entitic vol] 98.5 fL 82.6 - 102.9 fL [facility] Monocytes/100 WBC (Bld) 7 % 3 - 12 % [facility] Monocytes/100 WBC (Bld) 0.89 % [facility] Neutrophils/100 WBC (Bld) 79 % High 36 - 65 % [facility] Nucleated RBC/100 WBC (Bld) [Ratio] 0.0 % 0.0 per 100 WBC [facility] Platelet mean volume (Bld) [Entitic vol] 9.5 fL 8.1 - 13.5 fL [facility] Platelets (Bld) [#/Vol] 170 10*3/uL [facility] RBC (Bld) [#/Vol] 3.39 10*6/uL Low 4.21 - 5.7 7 m/uL [facility] Segmented neutrophils/100 WBC (Bld) 10.07 % High [facility] WBC other (Bld) [#/Vol] 12.8 High [facility] CBC with Diffon 09-04-2022 Abs. Basophil 0.06 k/uL Normal 0.00-0.20 [facility] Comment on above: Performed By: #### YULIYA COUGHLIN, CDP #### [facility] [address] [place], [place] [phone] Program Planner: David Montez MD Abs.Imm.Granulocyte 0.05 k/uL Normal 0.00-0.30 [facility] Comment on above: Performed By: #### YULIYA COUGHLIN, CDP #### [address] [place], [facility]83 Program Planner: David Montez MD Abs.Neutrophil (Seg) 10.07 k/uL High 1.50-8.10 [facility] Comment on above: Performed By: #### YULIYA COUGHLIN, CDP #### [address] [place], [facility]83 Program Planner: David Montez MD Basophils/100 WBC (Bld) 1 % Normal 0-2 [facility] Comment on above: Performed By: #### YULIYA COUGHLIN, CDP #### [facility] [address] [place] [address] [place] [place], [place] [id number] Program Planner: David Montez MD Eosinophils (Bld) [#/Vol] 0.05 10*3/uL Normal 0.00-0.44 [facility] Comment on above: Performed By: #### YULIYA COUGHLIN, CDP #### [facility] [address] [place] [address] [place] [address] Program Planner: David Montez MD Eosinophils/100 WBC (Bld) 0 % Low 1-4 [facility] Comment on above: Performed By: #### YULIYA COUGHLIN, CDP #### [address] [place] [address] Program Planner: David Montez MD Erythrocyte distribution width (RBC) [Ratio] 13.2 % Normal 11.8-14.4 [facility] Comment on above: Performed By: #### YULIYA COUGHLIN, CDP #### [address] [place] [address] Program Planner: David Montez MD Hematocrit (Bld) [Volume fraction] 33.4 % Low 40.7-50.3 [facility] Comment on above: Performed By: #### YULIYA COUGHLIN, CDP #### [address] [place] [address] Program Planner: David Montez MD Hemoglobin (Bld) [Mass/Vol] 11.1 g/dL Low 13.0-17.0 [facility] Comment on above: Performed By: #### YULIYA COUGHLIN, CDP #### [address] [place] [address] Program Planner: David Montez MD Immature granulocytes/100 WBC (Bld) 0 % Normal 0 [facility] Comment on above: Performed By: #### YULIYA COUGHLIN, CDP #### [address] [place] [address] Program Planner: David Montez MD Lymphocytes (Bld) [#/Vol] 1.71 10*3/uL Normal 1.10-3.70 [facility] Comment on above: Performed By: #### YULIYA COUGHLIN, CDP #### [address] [place] [address] Program Planner: David Montez MD Lymphocytes/100 WBC (Bld) 13 % Low 24-43 [facility] Comment on above: Performed By: #### YULIYA COUGHLIN, CDP #### [facility] [address] [place], [place] [address] Program Planner: David Montez MD MCH (RBC) [Entitic mass] 32.7 pg Normal 25.2-33.5 [facility] Comment on above: Performed By: #### YULIYA COUGHLIN, CDP #### [facility] [address] [place], [facility]83 Program Planner: David Montez MD MCHC (RBC) [Mass/Vol] 33.2 g/dL Normal 28.4-34.[address] [facility] Comment on above: Performed By: #### YULIYA COUGHLIN, CDP #### [address] [place] [address] Program Planner: David Montez MD MCV (RBC) [Entitic vol] 98.5 fL Normal 82.6-102.9 [facility] Comment on above: Performed By: #### YULIYA COUGHLIN, CDP #### [address] [place], [place] [address] Program Planner: David Montez MD Monocytes (Bld) [#/Vol] 0.89 10*3/uL Normal 0.10-1.20 [facility] Comment on above: Performed By: #### YULIYA COUGHLIN, CDP #### [facility] [address] [place] [address] Dr[place], [facility]83 Program Planner: David Montez MD Monocytes/100 WBC (Bld) 7 % Normal 3-12 [facility] Comment on above: Performed By: #### YULIYA COUGHLIN, CDP #### [facility] [address] [place] [address] Program Planner: David Montez MD Neutrophil (Seg) 79 % High 36-65 [facility] Comment on above: Performed By: #### Rick KENNEY IPF, CDP #### [facility] [address] [place], [place] [id number] Program Planner: David Montez MD NRBC Automated 0.0 per 100 WBC Normal 0.0 [facility] Comment on above: Performed By: #### Rick KENNEY IPF, CDP #### [facility] [address] [place], [facility]83 Program Planner: David Montez MD Platelet mean volume (Bld) [Entitic vol] 9.5 fL Normal 8.1-13.5 [facility] Comment on above: Performed By: #### YULIYA COUGHLIN, CDP #### [address] [place], [place] 5992183 Program Planner: David Montez MD Platelets (Bld) [#/Vol] 170 10*3/uL Normal 138-453 [facility] Comment on above: Performed By: #### YULIYA COUGHLIN, CDP #### [address] [place], [place] [address] Program Planner: David Montez MD RBC (Bld) [#/Vol] 3.39 10*6/uL Low 4.21-5.77 [facility] Comment on above: Performed By: #### YULIYA COUGHLIN, CDP #### [address] [place], [facility]83 Program Planner: David Montez MD WBC (Bld) [#/Vol] 12.8 10*3/uL High 3.5-11.3 [facility] Comment on above: Performed By: #### R ANNE MARIE IPF, CDP #### [address] [place] [address] Program Planner: David Montez MD Comp Metabolic Pr/rfx MGon 0 7- Albumin [Mass/Vol] 3.7 g/dL Normal 3.5-5.2 [facility] Comment on above: Performed By: #### R EJEC, IPF, CDP #### [facility] [address] [place], [place] [address]78[address]83 Program Planner: David Montez MD Albumin/Glob Ratio 1.2 Normal 1.0-2.5 [facility] Comment on above: Performed By: #### R ANNE MARIE, IPF, CDP #### [facility] [address] [place], [place] [id number] Program Planner: David Montez MD Alkaline Phos 110 U/L Normal 40-129 [facility] Comment on above: Performed By: #### R ANNE MARIE, IPF, CDP #### [facility] [address] [place], [place] 6853883 Program Planner: David Montez MD ALT [Catalytic activity/Vol] 13 U/L Normal 5-41 [facility] Comment on above: Performed By: #### R ANNE MARIE, IPF, CDP #### [facility] [address] [place], [place] 5333983 Program Planner: David Montez MD Anion gap [Moles/Vol] 11 mmol/L Normal 9-[address] [facility] Comment on above: Performed By: #### R ANNE MARIE IPF, CDP #### [address] [place], [place] [id number] Program Planner: David Montez MD AST [Catalytic activity/Vol] 13 U/L Normal <40 [facility] Comment on above: Performed By: #### R ANNE MARIE, IPF, CDP #### [facility] [address] [place], [place] 2048183 Program Planner: David Montez MD Bilirubin [Mass/Vol] 0.6 mg/dL Normal 0.3-1.2 [facility] Comment on above: Performed By: #### R EJEC, IPF, CDP #### [facility] [address] [place], [place] 9295483 Program Planner: David Montez MD BUN/CRE Ratio 27 High 9-20 [facility] Comment on above: Performed By: #### YULIYA COUGHLIN, CDP #### [facility] [address] [place], [place] [address]83 Program Planner: David Montez MD Calcium [Mass/Vol] 8.8 mg/dL Normal 8.6-10.4 [facility] Comment on above: Performed By: #### YULIYA COUGHLIN, CDP #### [facility] [address] [place], [place] [id number] Program Planner: David Montez MD Chloride [Moles/Vol] 106 mmol/L Normal 98-107 [facility] Comment on above: Performed By: #### YULIYA COUGHLIN, CDP #### [facility] [address] [place], [place] 4693983 Program Planner: David Montez MD CO2 [Moles/Vol] 26 mmol/L Normal 20-31 [facility] Comment on above: Performed By: #### YULIYA COUGHLIN, CDP #### [facility] [address] [place], [place] [id number] Program Planner: David Montez MD Creatinine [Mass/Vol] 0.79 mg/dL Normal 0.70-1.[address] [facility] Comment on above: Performed By: #### YULIYA COUGHLIN, CDP #### [facility] [address] [place], [place] 350[address]83 Program Planner: David Montez MD GFR/1.73 sq M.predicted among non-blacks MDRD (S/P/Bld) [Vol rate/Area] mL/min/{1.73_m2} Normal >60 [facility] Comment on above: Result Comment: These [...] Performed By: #### YULIYA COUGHLIN, CDP #### [facility] [address] [place], [place] 2161383 Program Planner: David Montez MD Glucose [Mass/Vol] 90 mg/dL Normal 70-99 [facility] Comment on above: Performed By: #### YULIYA COUGHLIN, CDP #### [facility] [address] [place], [place] [phone] Program Planner: David Montez MD Potassium [Moles/Vol] 3.8 mmol/L Normal 3.7-5.[address] [facility] Comment on above: Performed By: #### YULIYA COUGHLIN, CDP #### [facility] [address] [place] [address] [place], [place] [id number] Program Planner: David Montez MD Protein [Mass/Vol] 6.9 g/dL Normal 6.4-8.3 [facility] Comment on above: Performed By: #### YULIYA COUGHLIN, CDP #### [facility] [address] [place] [address] [place] [place], [place] 1822483 Program Planner: David Montez MD Sodium [Moles/Vol] 143 mmol/L Normal 135-144 [facility] Comment on above: Performed By: #### YULIYA COUGHLIN, CDP #### [facility] [address] [place], [place] [id number] Program Planner: David Montez MD Urea nitrogen [Mass/Vol] 21 mg/dL Normal 8-23 [facility] Comment on above: Performed By: #### YULIYA COUGHLIN, CDP #### [facility] [address] [place], [place] 0243[address] Program Planner: David Montez MD [facility] Metabolic Pane l w/ Reflex to on 09-04-2022 Albumin [Mass/Vol] 3.7 g/dL 3.5 - 5.2 g/dL [facility] Albumin/Globulin [Mass ratio] 1.2 {ratio} 1.0 - 2.5 [facility] ALP [Catalytic activity/Vol] 110 U/L 40 - 129 U/L [facility] ALT [Catalytic activity/Vol] 13 U/L 5 - 41 U/L [facility] Anion gap [Moles/Vol] 11 mmol/L 9 - 17 mmol/L [facility] AST [Catalytic activity/Vol] 13 U/L NINF - 40 U/L [facility] Bilirubin [Mass/Vol] 0.6 mg/dL 0.3 - 1 .2 mg/dL [facility] Calcium [Mass/Vol] 8.8 mg/dL 8.6 - 10. 4 mg/dL [facility] Chloride [Moles/Vol] 106 mmol/L 98 - 10 7 mmol/L [facility] CO2 [Moles/Vol] 26 mmol/L 20 - 31 mmol/L [facility] Creatinine [Mass/Vol] 0.79 mg/dL 0.70 - 1.20 mg/dL [facility] GFR/1.73 sq M.predicted MDRD (S/P/Bld) [Vol rate/Area] - PINF [facility] Comment on above: These results are not [...] [Mass/Vol] 90 mg/dL 70 - 99 mg/dL [facility] Interpretation and review of laboratory results Abnormal [facility] Potassium [Moles/Vol] 3.8 mmol/L 3.7 - 5.3 mmol/L [facility] Protein [Mass/Vol] 6.9 g/dL 6.4 - 8.3 g/dL [facility] Sodium [Moles/Vol] 143 mmol/L 135 - 144 mmol/L [facility] Urea nitrogen [Mass/Vol] 21 mg/dL 8 - 23 mg/dL [facility] Urea nitrogen/Creatinine [Mass ratio] 27 mg/mg High 9 - 20 [facility] EKG Rhythm Stripon [facility] KT [facility] ml [facility] XR ABDOMEN (2 VIEWS)on 09-04 XR ABDOMEN [...] Abbey Ochoa MD 09/04/22 Final result Normal [facility] No change in gaseous distension in the intestinal tract. NG tube terminates in the stomach. [facility] RIS CONSOLIDATED EXAMINATION: TWO XRAY VIEWS OF [...] interval change. No organomegaly or free air. [facility] RIS CONSOLIDATED Abbey Ochoa MD - 09/04/2022 [...] tract. NG tube terminates in the stomach. [facility] Radiology Study observation (narrative) [facility] XR ABDOMEN FOR NG/OG/NE TUBE PLACEMENTon 09-04-2022 [...] side hole overlying proximal stomach. Interpreted by: Kristan Bee DO Signed by: Kristan Bee DO 09/03/22 Final result Normal [facility] CBC auto differentialon 07-0 Basophils (Bld) [#/Vol] 0.04 10*3/uL [facility] Basophils/100 WBC (Bld) 0 % 0 - 2 % [facility] Eosinophils (Bld) [#/Vol] 0.09 10*3/uL [facility] Eosinophils/100 WBC (Bld) 1 % 1 - 4 % [facility] Erythrocyte distribution width (RBC) [Ratio] 13.2 % 11.8 - 14.4 % [facility] Hematocrit (Bld) [Volume fraction] 36.8 % Low 40.7 - 50.3 % [facility] Hemoglobin (Bld) [Mass/Vol] 12.1 g/dL Low 13.0 - 17.0 g/dL [facility] Immature granulocytes (Bld) [#/Vol] 0.03 10*3/uL [facility] Immature granulocytes/100 WBC (Bld) 0 % 0 [facility] Interpretation and review of laboratory results Abnormal [facility] Lymphocytes/100 WBC (Bld) 20 % Low 24 - 43 % [facility] Lymphocytes/100 WBC (Bld) 2.31 % [facility] MCH (RBC) [Entitic mass] 32.4 pg 25.2 - 33.5 pg [facility] MCHC (RBC) [Mass/Vol] 32.9 g/dL 28.4 - 34.8 g/dL [facility] MCV (RBC) [Entitic vol] 98.4 fL 82.6 - 102.9 fL [facility] Monocytes/100 WBC (Bld) 7 % 3 - 12 % [facility] Monocytes/100 WBC (Bld) 0.83 % [facility] Neutrophils/100 WBC (Bld) 72 % High 36 - 65 % [facility] Nucleated RBC/100 WBC (Bld) [Ratio] 0.0 % 0.0 per 100 WBC [facility] Platelet mean volume (Bld) [Entitic vol] 9.5 fL 8.1 - 13.5 fL [facility] Platelets (Bld) [#/Vol] 206 10*3/uL [facility] RBC (Bld) [#/Vol] 3.74 10*6/uL Low 4.21 - 5.7 7 m/uL [facility] Segmented neutrophils/100 WBC (Bld) 8.20 % High [facility] WBC other (Bld) [#/Vol] 11.5 High [facility] CBC with Diffon 09-03-2022 Abs. Basophil 0.04 k/uL Normal 0.00-0.20 [facility] Comment on above: Performed By: #### R YULIYA KENNEY, CDP #### [facility] [address] [place] [address] Program Planner: David Montez MD Abs.Imm.Granulocyte 0.03 k/uL Normal 0.00-0.30 [facility] Comment on above: Performed By: #### R YULIYA KENNEY, CDP #### [facility] [address] [place], [place] [phone] Program Planner: David Montez MD Abs.Neutrophil (Seg) 8.20 k/uL High 1.50-8.10 [facility] Comment on above: Performed By: #### YULIYA COUGHLIN, CDP #### [address] [place], [facility]83 Program Planner: David Montez MD Basophils/100 WBC (Bld) 0 % Normal 0-2 [facility] Comment on above: Performed By: #### YULIYA COUGHLIN, CDP #### [address] [place] [address] Program Planner: David Montez MD Eosinophils (Bld) [#/Vol] 0.09 10*3/uL Normal 0.00-0.44 [facility] Comment on above: Performed By: #### YULIYA COUGHLIN, CDP #### [address] [place], [place] [address] Program Planner: David Montez MD Eosinophils/100 WBC (Bld) 1 % Normal 1-4 [facility] Comment on above: Performed By: #### YULIYA COUGHLIN, CDP #### [address] [place], [facility]83 Program Planner: David Montez MD Erythrocyte distribution width (RBC) [Ratio] 13.2 % Normal 11.8-14.4 [facility] Comment on above: Performed By: #### YULIYA COUGHLIN, CDP #### [address] [place], [facility]83 Program Planner: David Montez MD Hematocrit (Bld) [Volume fraction] 36.8 % Low 40.7-50.3 [facility] Comment on above: Performed By: #### YULIYA COUGHLIN, CDP #### [address] [place], [facility]83 Program Planner: David Montez MD Hemoglobin (Bld) [Mass/Vol] 12.1 g/dL Low 13.0-17.0 [facility] Comment on above: Performed By: #### YULIYA COUGHLIN, CDP #### [facility] [address] [place], [place] 0055183 Program Planner: David Montez MD Immature granulocytes/100 WBC (Bld) 0 % Normal 0 [facility] Comment on above: Performed By: #### YULIYA COUGHLIN, CDP #### [facility] [address] [place], [place] [address]29683 Program Planner: Davdi Montez MD Lymphocytes (Bld) [#/Vol] 2.31 10*3/uL Normal 1.10-3.70 [facility] Comment on above: Performed By: #### YULIYA COUGHLIN, CDP #### [address] [place], [place] 2302283 Program Planner: David Montez MD Lymphocytes/100 WBC (Bld) 20 % Low 24-43 [facility] Comment on above: Performed By: #### YULIYA COUGHLIN, CDP #### [address] [place], [place] 47[address]83 Program Planner: David Montez MD MCH (RBC) [Entitic mass] 32.4 pg Normal 25.2-33.5 [facility] Comment on above: Performed By: #### YULIYA COUGHLIN, CDP #### [address] [place], [place] [address]557283 Program Planner: David Montez MD MCHC (RBC) [Mass/Vol] 32.9 g/dL Normal 28.4-34.[address] [facility] Comment on above: Performed By: #### YULIYA COUGHLIN, CDP #### [address] [place], [place] [phone] Program Planner: David Montez MD MCV (RBC) [Entitic vol] 98.4 fL Normal 82.6-102.9 [facility] Comment on above: Performed By: #### YULIYA COUGHLIN, CDP #### [facility] [address] [place], [place] 8284183 Program Planner: David Montez MD Monocytes (Bld) [#/Vol] 0.83 10*3/uL Normal 0.10-1.20 [facility] Comment on above: Performed By: #### YULIYA COUGHLIN, CDP #### [address] [place], [place] 0322483 Program Planner: David Montez MD Monocytes/100 WBC (Bld) 7 % Normal 3-12 [facility] Comment on above: Performed By: #### YULIYA COUGHLIN, CDP #### [address] [place], [facility]83 Program Planner: David Montez MD Neutrophil (Seg) 72 % High 36-65 [facility] Comment on above: Performed By: #### YULIYA COUGHLIN, CDP #### [address] [place], [place] 1672583 Program Planner: David Montez MD NRBC Automated 0.0 per 100 WBC Normal 0.0 [facility] Comment on above: Performed By: #### YULIYA COUGHLIN, CDP #### [address] [place], [facility]83 Program Planner: David Montez MD Platelet mean volume (Bld) [Entitic vol] 9.5 fL Normal 8.1-13.5 [facility] Comment on above: Performed By: #### YULIYA COUGHLIN, CDP #### [address] [place] [address] Program Planner: David Montez MD Platelets (Bld) [#/Vol] 206 10*3/uL Normal 138-453 [facility] Comment on above: Performed By: #### R YULIYA KENNEY, CDP #### [facility] [address] [place] [address] Program Planner: David Montez MD RBC (Bld) [#/Vol] 3.74 10*6/uL Low 4.21-5.77 [facility] Comment on above: Performed By: #### YULIYA COUGHLIN, CDP #### [facility] [address] [place], [place] 8117683 Program Planner: David Montez MD WBC (Bld) [#/Vol] 11.5 10*3/uL High 3.5-11.3 [facility] Comment on above: Performed By: #### YULIYA COUGHLIN, CDP #### [facility] [address] [place], [place] 769[address]83 Program Planner: David Montez MD CT ABDOMEN PELVIS W [...] pneumatosis or free air. Interpreted by: Kristan Bee DO Signed by: Kristan Bee DO 09/03/22 Final result Normal [facility] CT ABDOMEN PELVIS W IV CONTR [...] superficial soft tissues are within normal limits. PN RIS CONSOLIDATED Kristan Bee DO - 09/03/2022 EXAMINATION: CT OF THE [...] lower quadrant. No pneumatosis or free air. [facility] CT ABDOMEN PELVIS W IV CONTR AST Additional Contrast? NoneOrdered By: Kristan Bee on 09-03-2022 [facility] Work Phone: Comp Metabolic Pr/rfx MGon 0 09-03-2022 Potassium [Moles/Vol] 3.2 mmol/L Low 3.7-5.[address] [facility] Comment on above: Performed By: #### R YULIYA KENNEY, CDP #### [facility] [address] [place] [address] Program Planner: David Montez MD Albumin [Mass/Vol] 3.9 g/dL Normal 3.5-5.2 [facility] Comment on above: Performed By: #### R YULIYA KENNEY, CDP #### [facility] [address] [place] [address] Program Planner: David Montez MD Albumin/Glob Ratio 1.2 Normal 1.0-2.5 [facility] Comment on above: Performed By: #### Rick KENNEY IPF, CDP #### [facility] [address] [place], [place] 8624083 Program Planner: David Montez MD Alkaline Phos 124 U/L Normal 40-129 [facility] Comment on above: Performed By: #### Rick KENNEY IPF, CDP #### [facility] [address] [place], [place] 7007583 Program Planner: David Montez MD ALT [Catalytic activity/Vol] 19 U/L Normal 5-41 [facility] Comment on above: Performed By: #### Rick KENNEY IPF, CDP #### [facility] [address] [place], [place] 6678483 Program Planner: David Montez MD Anion gap [Moles/Vol] 12 mmol/L Normal 9-[address] [facility] Comment on above: Performed By: #### YULIYA COUGHLIN, CDP #### [facility] [address] [place], [place] 5887183 Program Planner: David Montez MD AST [Catalytic activity/Vol] 17 U/L Normal <40 [facility] Comment on above: Performed By: #### Rick KENNEY IPF, CDP #### [facility] [address] [place], [place] 6004583 Program Planner: David Montez MD Bilirubin [Mass/Vol] 0.4 mg/dL Normal 0.3-1.2 [facility] Comment on above: Performed By: #### Rick KENNEY IPF, CDP #### [facility] [address] [place] [address] Program Planner: David Montez MD BUN/CRE Ratio 33 High 9-20 [facility] Comment on above: Performed By: #### Rick KENNEY IPF, CDP #### [facility] [address] [place], [place] 0974083 Program Planner: David Montez MD Calcium [Mass/Vol] 9.3 mg/dL Normal 8.6-10.4 [facility] Comment on above: Performed By: #### YULIYA COUGHLIN, CDP #### [facility] [address] [place] 6144083 Program Planner: David Montez MD Chloride [Moles/Vol] 102 mmol/L Normal 98-107 [facility] Comment on above: Performed By: #### YULIYA COUGHLIN, CDP #### [facility] [address] [place] [address] Program Planner: David Montez MD CO2 [Moles/Vol] 31 mmol/L Normal 20-31 [facility] Comment on above: Performed By: #### YULIYA COUGHLIN, CDP #### [facility] [address] [place], [place] [address]180183 Program Planner: David Montez MD Creatinine [Mass/Vol] 0.83 mg/dL Normal 0.70-1.[address] [facility] Comment on above: Performed By: #### YULIYA COUGHLIN, CDP #### [facility] [address] [place], [place] 6[address]83 Program Planner: David Montez MD GFR/1.73 sq M.predicted among non-blacks MDRD (S/P/Bld) [Vol rate/Area] mL/min/{1.73_m2} Normal >60 [facility] Comment on above: Result Comment: These [...] affects renal tubular secretion. Performed By: #### R EJEC, IPF, CDP #### [facility] [address] [place], [place] 5963983 Program Planner: David Montez MD Glucose [Mass/Vol] 103 mg/dL High 70-99 [facility] Comment on above: Performed By: #### R ANNE MARIE IPF, CDP #### [facility] [address] [place], [place] 0955683 Program Planner: David Montez MD Protein [Mass/Vol] 7.2 g/dL Normal 6.4-8.3 [facility] Comment on above: Performed By: #### YULIYA COUGHLIN, CDP #### [facility] [address] [place], [place] 1970583 Program Planner: David Montez MD Sodium [Moles/Vol] 145 mmol/L High 135-144 [facility] Comment on above: Performed By: #### YULIYA COUGHLIN, CDP #### [facility] [address] [place], [place] 423[address]83 Program Planner: David Montez MD Urea nitrogen [Mass/Vol] 27 mg/dL High 8-23 [facility] Comment on above: Performed By: #### R ANNE MARIE IPF, CDP #### [facility] [address] [place] [address] Program Planner: David Montez MD Comprehensive Metabolic Pane l w/ Reflex to MGon 09-03-2022 Albumin [Mass/Vol] 3.9 g/dL 3.5 - 5.2 g/dL [facility] Albumin/Globulin [Mass ratio] 1.2 {ratio} 1.0 - 2.5 [facility] ALP [Catalytic activity/Vol] 124 U/L 40 - 129 U/L [facility] ALT [Catalytic activity/Vol] 19 U/L 5 - 41 U/L [facility] Anion gap [Moles/Vol] 12 mmol/L 9 - 17 mmol/L [facility] AST [Catalytic activity/Vol] 17 U/L NINF - 40 U/L [facility] Bilirubin [Mass/Vol] 0.4 mg/dL 0.3 - 1 .2 mg/dL [facility] Calcium [Mass/Vol] 9.3 mg/dL 8.6 - 10. 4 mg/dL [facility] Chloride [Moles/Vol] 102 mmol/L 98 - 10 7 mmol/L [facility] CO2 [Moles/Vol] 31 mmol/L 20 - 31 mmol/L [facility] Creatinine [Mass/Vol] 0.83 mg/dL 0.70 - 1.20 mg/dL [facility] GFR/1.73 sq M.predicted MDRD (S/P/Bld) [Vol rate/Area] - PINF [facility] Comment on above: These results are not [...] 103 mg/dL High 70 - 99 mg/dL [facility] Interpretation and review of laboratory results Abnormal [facility] Potassium [Moles/Vol] 3.2 mmol/L Low 3.7 - 5.3 mmol/L [facility] Protein [Mass/Vol] 7.2 g/dL 6.4 - 8.3 g/dL [facility] Sodium [Moles/Vol] 145 mmol/L High 135 - 144 mmol/L [facility] Urea nitrogen [Mass/Vol] 27 mg/dL High 8 - 23 mg/dL [facility] Urea nitrogen/Creatinine [Mass ratio] 33 mg/mg High 9 - 20 [facility] EKG Rhythm Stripon 3 [facility] Magnesiumon 09-03-2022 Magnesium [Mass/Vol] 1.7 mg/dL Normal 1.6-2.6 [facility] Comment on above: Performed By: #### R EJEC, IPF, CDP #### [facility] [address] [place] [address] Program Planner: David Montez MD Magnesium [Mass/Vol] 1.7 mg/dL 1.6 - 2 .6 mg/dL [facility] XR ABDOMEN (KUB) (SINGLE AP VIEW)on 09-03-2022 [...] Abbey Ochoa MD 09/03/22 Final result Normal [facility] Preferential distention of small-bowel loops compatible with partial small bowel obstruction, degree of distention unchanged from prior examination. Contrast material incidentally noted in the bladder nodule from prior CT. RECOMMENDATION: Continued radiographic monitoring. PN RIS CONSOLIDATED EXAMINATION: ONE SUPINE XRAY [...] No organomegaly or free air is noted. [facility] RIS CONSOLIDATED Abbey Ochoa MD - 09/03/2022 EXAMINATION: [...] from prior CT. RECOMMENDATION: Continued radiographic monitoring. [facility] [employer] [facility] Radiology Study observation (narrative) [facility] [employer] XR ABDOMEN (KUB) (SINGLE AP VIEW)Ordered By: Abbey Ochoa on 09-03-2022 [facility] Work Phone: XR ABDOMEN FOR NG/OG/NE TUBE PLACEMENTon 09-03-2022 Satisfactory positioning of the enteric tube with distal tip and side hole overlying proximal stomach. [facility] CONSOLIDATED EXAMINATION: ONE SUPINE [...] stomach and visualized upper abdominal bowel loops. [facility] RIS CONSOLIDATED Kristan Bee DO - 09/03/2022 [...] tip and side hole overlying proximal stomach. [facility] Radiology Study observation (narrative) [facility] XR ABDOMEN FOR NG/OG/NE TUBE PLACEMENT EXAMINATION: [...] by: Kristan Bee DO 09/03/22 Final result [facility] Satisfactory position of the enteric tube. [facility] RIS CONSOLIDATED EXAMINATION: ONE SUPINE XRAY VIEW(S) [...] and visualized upper abdominal small bowel loops. [facility] RIS CONSOLIDATED Kristan Bee DO - 09/03/2022 [...] IMPRESSION: Satisfactory position of the enteric tube. [facility] CBC with Auto Differentialon 09-02-2022 Basophils (Bld) [#/Vol] 0.04 10*3/uL [facility] Basophils/100 WBC (Bld) 0 % 0 - 2 % [facility] Eosinophils (Bld) [#/Vol] [facility] Eosinophils/100 WBC (Bld) 0 % Low 1 - 4 % [facility] Erythrocyte distribution width (RBC) [Ratio] 13.1 % 11.8 - 14.4 % [facility] Hematocrit (Bld) [Volume fraction] 41.5 % 40.7 - 50.3 % [facility] Hemoglobin (Bld) [Mass/Vol] 13.7 g/dL 13.0 - 17.0 g/dL [facility] Immature granulocytes (Bld) [#/Vol] 0.04 10*3/uL [facility] Immature granulocytes/100 WBC (Bld) 0 % 0 [facility] Interpretation and review of laboratory results Abnormal [facility] Lymphocytes/100 WBC (Bld) 9 % Low 24 - 43 % [facility] Lymphocytes/100 WBC (Bld) 1.33 % [facility] MCH (RBC) [Entitic mass] 32.3 pg 25.2 - 33.5 pg [facility] MCHC (RBC) [Mass/Vol] 33.0 g/dL 28.4 - 34.8 g/dL [facility] MCV (RBC) [Entitic vol] 97.9 fL 82.6 - 102.9 fL [facility] Monocytes/100 WBC (Bld) 5 % 3 - 12 % [facility] Monocytes/100 WBC (Bld) 0.72 % [facility] Neutrophils/100 WBC (Bld) 86 % High 36 - 65 % [facility] Nucleated RBC/100 WBC (Bld) [Ratio] 0.0 % 0.0 per 100 WBC [facility] Platelet mean volume (Bld) [Entitic vol] 9.1 fL 8.1 - 13.5 fL [facility] Platelets (Bld) [#/Vol] 245 10*3/uL [facility] RBC (Bld) [#/Vol] 4.24 10*6/uL 4.21 - 5.7 7 m/uL [facility] Segmented neutrophils/100 WBC (Bld) 12.71 % High [facility] WBC other (Bld) [#/Vol] 14.9 High [facility] CBC with Diffon 09-02-2022 Abs. Basophil 0.04 k/uL Normal 0.00-0.20 [facility] Comment on above: Performed By: #### C DP, BMPX #### [address] [place] [address] Program Planner: David Montez MD Abs. Eosinophil <0.03 Normal 0.00-0.44 [facility] Comment on above: Performed By: #### C DP, BMPX #### [address] [place] [address] Program Planner: David Montez MD Abs.Imm.Granulocyte 0.04 k/uL Normal 0.00-0.30 [facility] Comment on above: Performed By: #### C DP, BMPX #### [address] [place] [address] Program Planner: David Montez MD Abs.Neutrophil (Seg) 12.71 k/uL High 1.50-8.10 [facility] Comment on above: Performed By: #### C DP, BMPX #### [address] [place] [address] Program Planner: David Montez MD Basophils/100 WBC (Bld) 0 % Normal 0-2 [facility] Comment on above: Performed By: #### C DP, BMPX #### [facility] [address] [place], [place] [id number] Program Planner: David Montez MD Eosinophils/100 WBC (Bld) 0 % Low 1-4 [facility] Comment on above: Performed By: #### C DP, BMPX #### [address] [place], [facility] Program Planner: David Montez MD Erythrocyte distribution width (RBC) [Ratio] 13.1 % Normal 11.8-14.4 [facility] Comment on above: Performed By: #### C DP, BMPX #### [address] [place], [place] [id number] Program Planner: David Montez MD Hematocrit (Bld) [Volume fraction] 41.5 % Normal 40.7-50.3 [facility] Comment on above: Performed By: #### C DP, BMPX #### [address] [place], [place] [id number] Program Planner: David Montez MD Hemoglobin (Bld) [Mass/Vol] 13.7 g/dL Normal 13.0-17.0 [facility] Comment on above: Performed By: #### C DP, BMPX #### [address] [place], [facility] Program Planner: David Montez MD Immature granulocytes/100 WBC (Bld) 0 % Normal 0 [facility] Comment on above: Performed By: #### C DP, BMPX #### [address] [place] [address] Program Planner: David Montez MD Lymphocytes (Bld) [#/Vol] 1.33 10*3/uL Normal 1.10-3.70 [facility] Comment on above: Performed By: #### C DP, BMPX #### [facility] [address] [place], [place] [id number] Program Planner: David Montez MD Lymphocytes/100 WBC (Bld) 9 % Low 24-43 [facility] Comment on above: Performed By: #### C DP, BMPX #### [facility] [address] [place], [place] 360[address]383 Program Planner: David Montez MD MCH (RBC) [Entitic mass] 32.3 pg Normal 25.2-33.5 [facility] Comment on above: Performed By: #### C DP, BMPX #### [address] [place], [place] [address] Program Planner: David Montez MD MCHC (RBC) [Mass/Vol] 33.0 g/dL Normal 28.4-34.[address] [facility] Comment on above: Performed By: #### C DP, BMPX #### [address] [place], [place] [id number] Program Planner: David Montez MD MCV (RBC) [Entitic vol] 97.9 fL Normal 82.6-102.9 [facility] Comment on above: Performed By: #### C DP, BMPX #### [address] [place], [place] 1875383 Program Planner: David Montez MD Monocytes (Bld) [#/Vol] 0.72 10*3/uL Normal 0.10-1.20 [facility] Comment on above: Performed By: #### C DP, BMPX #### [facility] [address] [place], [place] [id number] Program Planner: David Montez MD Monocytes/100 WBC (Bld) 5 % Normal 3-12 [facility] Comment on above: Performed By: #### C DP, BMPX #### [facility] [address] [place], [place] 1720[address] Program Planner: David Montez MD Neutrophil (Seg) 86 % High 36-65 [facility] Comment on above: Performed By: #### C DP, BMPX #### [facility] [address] [place] [address] Program Planner: David Montez MD NRBC Automated 0.0 per 100 WBC Normal 0.0 [facility] Comment on above: Performed By: #### C DP, BMPX #### [facility] [address] [place] [address] Program Planner: David Montez MD Platelet mean volume (Bld) [Entitic vol] 9.1 fL Normal 8.1-13.5 [facility] Comment on above: Performed By: #### C DP, BMPX #### [address] [place] [address] Program Planner: David Montez MD Platelets (Bld) [#/Vol] 245 10*3/uL Normal 138-453 [facility] Comment on above: Performed By: #### C DP, BMPX #### [address] [place] [address] Program Planner: David Montez MD RBC (Bld) [#/Vol] 4.24 10*6/uL Normal 4.21-5.77 [facility] Comment on above: Performed By: #### C DP, BMPX #### [address] [place], [place] [address]83 Program Planner: David Montez MD WBC (Bld) [#/Vol] 14.9 10*3/uL High 3.5-11.3 [facility] Comment on above: Performed By: #### C DP, BMPX #### [facility] [address] [place] [address] Program Planner: David Montez MD CMPon 09-02-2022 Albumin [Mass/Vol] 4.7 g/dL 3.5 - 5.2 g/dL [facility] Albumin/Globulin [Mass ratio] 1.4 {ratio} 1.0 - 2.5 [facility] ALP [Catalytic activity/Vol] 159 U/L High 40 - 129 U/L [facility] ALT [Catalytic activity/Vol] 24 U/L 5 - 41 U/L [facility] Anion gap [Moles/Vol] 12 mmol/L 9 - 17 mmol/L [facility] AST [Catalytic activity/Vol] 20 U/L NINF - 40 U/L [facility] Bilirubin [Mass/Vol] 0.3 mg/dL 0.3 - 1 .2 mg/dL [facility] Calcium [Mass/Vol] 9.6 mg/dL 8.6 - 10. 4 mg/dL [facility] Chloride [Moles/Vol] 99 mmol/L 98 - 10 7 mmol/L [facility] CO2 [Moles/Vol] 31 mmol/L 20 - 31 mmol/L [facility] Creatinine [Mass/Vol] 1.15 mg/dL 0.70 - 1.20 mg/dL [facility] GFR/1.73 sq M.predicted MDRD (S/P/Bld) [Vol rate/Area] - [facility] Comment on above: These results are not [...] 113 mg/dL High 70 - 99 mg/dL [facility] Interpretation and review of laboratory results Abnormal [facility] Potassium [Moles/Vol] 3.7 mmol/L 3.7 - 5.3 mmol/L [facility] Protein [Mass/Vol] 8.1 g/dL 6.4 - 8.3 g/dL [facility] Sodium [Moles/Vol] 142 mmol/L 135 - 144 mmol/L [facility] Urea nitrogen [Mass/Vol] 29 mg/dL High 8 - 23 mg/dL [facility] Urea nitrogen/Creatinine [Mass ratio] 25 mg/mg High 9 - 20 [facility] CT ABDOMEN PELVIS W IV CONTR AST Additional Contrast? Noneon 09-02-2022 Radiology Study observation (narrative) [facility] Comp Metabolic Profon 2022 Albumin [Mass/Vol] 4.7 g/dL Normal 3.5-5.2 [facility] Comment on above: Performed By: #### C DP, BMPX #### [facility] [address] [place] [address] Program Planner: David Montez MD Albumin/Glob Ratio 1.4 Normal 1.0-2.5 [facility] Comment on above: Performed By: #### C DP, BMPX #### [facility] [address] [place], [place] 267[address]83 Program Planner: David Montez MD Alkaline Phos 159 U/L High 40-129 [facility] Comment on above: Performed By: #### C DP, BMPX #### [facility] [address] [place], [place] 8950483 Program Planner: David Montez MD ALT [Catalytic activity/Vol] 24 U/L Normal 5-41 [facility] Comment on above: Performed By: #### C DP, BMPX #### [facility] [address] [place], [place] [address] Program Planner: David Montez MD Anion gap [Moles/Vol] 12 mmol/L Normal 9-[address] [facility] Comment on above: Performed By: #### C DP, BMPX #### [facility] [address] [place], [place] [address]83 Program Planner: David Montez MD AST [Catalytic activity/Vol] 20 U/L Normal <40 [facility] Comment on above: Performed By: #### C DP, BMPX #### [facility] [address] [place], [place] 46[address]83 Program Planner: David Montez MD Bilirubin [Mass/Vol] 0.3 mg/dL Normal 0.3-1.2 [facility] Comment on above: Performed By: #### C DP, BMPX #### [facility] [address] [place], [place] 19[address]83 Program Planner: David Montez MD BUN/CRE Ratio 25 High 9-20 [facility] Comment on above: Performed By: #### C DP, BMPX #### [facility] [address] [place], [place] 6856[address] Program Planner: David Montez MD Calcium [Mass/Vol] 9.6 mg/dL Normal 8.6-10.4 [facility] Comment on above: Performed By: #### C DP, BMPX #### [facility] [address] [place], [place] [address]99[address] Program Planner: David Montez MD Chloride [Moles/Vol] 99 mmol/L Normal 98-107 [facility] Comment on above: Performed By: #### C DP, BMPX #### [facility] [address] [place], [place] [address]27483 Program Planner: David Montez MD CO2 [Moles/Vol] 31 mmol/L Normal 20-31 [facility] Comment on above: Performed By: #### C DP, BMPX #### [facility] [address] [place], [place] 9732683 Program Planner: David Montez MD Creatinine [Mass/Vol] 1.15 mg/dL Normal 0.70-1.[address] [facility] Comment on above: Performed By: #### C DP, BMPX #### [facility] [address] [place] [address] Program Planner: David Montez MD GFR/1.73 sq M.predicted among non-blacks MDRD (S/P/Bld) [Vol rate/Area] mL/min/{1.73_m2} Normal >60 [facility] Comment on above: Result Comment: These [...] Performed By: #### C DP, BMPX #### [address] [place] [address] Program Planner: David Montez MD Glucose [Mass/Vol] 113 mg/dL High 70-99 [facility] Comment on above: Performed By: #### C DP, BMPX #### [address] [place] [address] Program Planner: David Montez MD Potassium [Moles/Vol] 3.7 mmol/L Normal 3.7-5.[address] [facility] Comment on above: Performed By: #### C DP, BMPX #### [address] [place] [address] Program Planner: David Montez MD Protein [Mass/Vol] 8.1 g/dL Normal 6.4-8.3 [facility] Comment on above: Performed By: #### C DP, BMPX #### [address] [place] [address] Program Planner: David Montez MD Sodium [Moles/Vol] 142 mmol/L Normal 135-144 [facility] Comment on above: Performed By: #### C DP, BMPX #### [address] [place] [address]77[address]83 Program Planner: David Montez MD Urea nitrogen [Mass/Vol] 29 mg/dL High 8-23 [facility] Comment on above: Performed By: #### C DP, BMPX #### [facility] [address] [place] [address] Program Planner: David Montez MD Lactic Acidon 09-02-2022 Lactate [Moles/Vol] 1.3 mmol/L Normal 0.5-2.2 [facility] Comment on above: Performed By: #### R EJEC, IPF, CDP #### [facility] [address] [place], [place] 9903[address] Program Planner: David Montez MD Lactate (BldV) [Moles/Vol] 1.3 mmol/L 0.5 - 2.2 mmol/L [facility] Lipaseon 09-02-2022 Lipase [Catalytic activity/Vol] 27 U/L Normal 13-60 [facility] Comment on above: Performed By: #### C DP, BMPX #### [facility] [address] [place] [address] Program Planner: David Montez MD Lipase [Catalytic activity/Vol] 27 U/L 13 - 60 U/L [facility] No Panel Informationon 09-02 [facility] XR ABDOMEN FOR NG/OG/NE TUBE PLACEMENTon 09-02-2022 Radiology Study observation (narrative) [facility] Coding Summary.on 06-28-2022 Coding Summary. CD:[id number] Ww+PGhlYWQ+XK1PBJToF 15rwWFgyL3eQ2FQZNbQB ywgQVBQTElOSyIgbmFtZ F0oaATuQIAl IC8+WR0uFPUzIfpovSDz q8N3dIH3P01dzw4oJXuj jNF2ABPpWcSzsawik9sy tIm0LSvkEhkfHvBk ZCBhaL24VDQ8hO04At48 wKCfpSNsb1oydYl9HwXk PLUnKHM9tYdzFCwpc1Xa BAVrW97xtGKcl4E0 IGNvbGxhcHNlOyBlbXB0 hK5zVUgsjunpq1yjdnao Lsa9fx67tGOkd3Z4dHA2 I0PeeiI8XOAgcINk SjjheVSSlW6kjdgas8ik uxekZdVwSTUtXAp1GYx7 LTBojOqnYbFfPH37PJO8 VYSvfeYmK5QrOPDd lDiqIgT2t4N0Id8ZZ5IF CvpzA0FIKJUVMVbmsHJ+ HE55aj85F6MaYpfvCrd8 RQVwTCY6bRR3aU1x YLFeCEorx0W6cCX5T6Ji hkEgzy5qz9xxQIHgYCim L64nzRSnq8N8FIArbRV4 YKFdfLlbJaRupE03 Oyc+VIWbtCjxx4InAeur i4lla3mdaMe3GuamFMKo tzPspGeoCXK4z0QfWl6h WLFpyMO3wAJ4hB1o HhLoVeV3TKbqN375HeKm oSWmSepfN31mL5JfxVP+ MRMmZmd6PSHzsBvfJA3s I6ZyNNSvfjzasYSc lEdpIB2eORBjofvnLZVj pQ1mSBIkY1q2XwToQfO3 ESqmA6NaKYLjcnkyVj28 vN6xYtWwMkD7LRmj Z0QhzoQ2GYDtwIXjHOmf CGJ9X38pd1T1PFPkSVEs TCC5xZV0bC9wcPacbzrl bGVmdDsgdmVydGlj FZjgPUpiD590IMQlxGwj PkNvZGluZyBEYXRlOiAg MDQvMjYvMjAyMzwvdGQ+ EVYsSVQ1fNbfMEUo oQYfVXlsPa8ooJftbMgv DS1mVYQhownvUDZvpX0m QCZqzKMbzWnuRT8iCMIj usweb354YzOgTER7 TYPfaPOoL1KiaD3vWoAp SCQgINLoX1AivVLoILlb G543XMerRpM8JSTulfHc J6NyBQKztMhfIoZ0 a7A3Fg4Kp0VwpzkhD8Zo aQHrPlQgNecdLSr5B5Vr PjwvdHI+KS38GMXpOB90 OWn7FCD9jWycBTdo JFJuY6DwpV4wKlYqDASm ZGRkOyc+PHRhYmxlIHdp ZHRoPScxMDAlJyBzdHls OO5kXt1yFJZjBTQx xXyxxFPoEfMgh5tyJQDl FYlyXR2eyYswW9SttGO0 CSFao8i5Gf20G26dT3Uf dXA+EWVdeGV9sWG1 bG9jDuDcHzV3ANewL068 IlKjrLAxKopks3txg6nb hTt4EgY1FJHtwqIdfTri BSQ9o6QrIq28Z86p IHdpZHRoPSIxNSUiIHZh hNbeui6mcQ6qYw5+PGNv iVH5iVD8kT8iKxQlUuA1 SVabV025FtUfxINn Hlrvt9xwa4dbsKp2VbCp DHJwvyWzsZaxCPQ9j9Tq Bv92E1AscEvyl5BzIkj0 ua43cPPbg6J6kNO9 U2CbNITgnfdwaVTuyCfz BU1tXUKwppgiOZBxmV9n LCCfJ4d8DbFkXeG4PUtf M6CvrzK7SPCbqLCi GNGaeXLEzW3xteyca5uo fcxrSxHrJBOtLJu9YKf8 XGRfxKthMgYuZLH1XyT3 ORK4zCPwpB4muUuh mbhgmX8eGdm+HFW6gEVk xPQQHT4aEclafSM+PHRk SWC4eEdpXZbnMVVvoO2t XLRgX0u4XaZnRsR6 MLbfH9ZabuL8MAFjfPXn PIEqeKVKxF3dbhdis3zh xxmpQaTwOGOeEYb8HSh1 LWFsaWduOiBsZWZ0 FeV1LEG7mURtwL8euYnn rahoyW7lByo+QmlydGgg JMK7DTm8K3BnKwj7FBHj iBouAZ1syOPwNOeg Ko0lyBzqvYxeTX6jVCBd xdztm411NfYly5kzMRPv aBWoWRivMHA9V68yt1G9 NRTrUGBlXNK8uOJ4 sL6yaStlrjmkbXFmjRal zfRggYycAOtiLGzjO395 SSIiyYysVfBdLWu3X2Zj Yde0QMPenVwzEM9h qNFvEBooAr7vcMwczHzw VO0jKQAhjbsgb617WeLf j3cqJJYsjEHfGRoeVOG9 H92zn7T9AWFoDKGv LIN6cJC3gU6ibWoyayhc bGVmdDsgdmVydGljYWwt PYmgY612JTGbpGheXyYp xZh1Y4UjHcm7VILz gJzrFA0wbQXoSYclNf7t bMzkuKgzUQ6cSOGhvdnc f533DvGec9auYOFiqTLt EWbhOGL0R51nb1J7 EBRsXTEdBTL6xQJ9mC0r bGlnbjogbGVmdDsgdmVy qRdnKZfqCPigH970MFMb cDsnPlBhdGllbnQg DJqlNQd3Q0KzBxrnfZB+ FC32YTEwOW30eDUgrIFf k2qscCy3ThGjLETeRDA7 cMxwTSibr5CkSBTe S74skHRhm1H1DLNwcAla aHZiIyAbcXQ5nO2cCPbx ckpff7xocmscHrggm3kd uo30gX93X75hOWvf ZHRoPSIzMCUiIHZhbGln nl7wnN2lQm1+PGNvbCB3 tEV9pK8xUCIgWgY0EUhc Y418WqZofKRfMfge k3qdk2rqwHc3QxL3FGFa xpLilNosKCF9d1VaLs37 T21hVPsrDICqIVTfXKTn QULrxWxjhq7mrD7z Ii8+DXDsaGM1oQE2iE9s ZwAgIiO3GTubW216LdAb uTEbAjypX61fU5JmbKI+ VDGtEto1HFNjjNyq PP8ucSPkURkeMd2cPJO8 NzRlSpUnWQauO0HkQYLi heptgaqktXR1ERKsMEWn oJ81Hh8ndUaaKGQq jGAYnO3rwcqoe4wgxdlv EdMuJGGeZDj4VGa4WATo gPatLyJkWVC5ByB8FDW1 dJLtnH6soJyroyea cB4kE5EbSUQybhkfAs62 qC4eEuOkLsJ5PMaeLsm+ XJQPP3RwGTTFK3wFAJN8 R1GtLel9KBGznCov RI1jgMHkBAkfYc5baCqq sDtbYY4iLZGbstcsTUCj tR2fXWVdjSAsxYuxIK2z URBgpzxvs529KyBp WVP8UDAeaZQhQ8SjnV7t FvMbDKGeEZJeG8WwnJId RDatB489LKhtChF8DYKx qgTkM4CmXTRriEee TvO7l3I4Pj4yNX5pQo7t EHI2SQ28MI99jNXoo3C0 mRJ5O7XkGVNspsvvdirt iJA5ERPpPUXycA03 dJCtPScdQz7iq5E3t244 WTZbVQBqoD55Rf1kvTff ASUfyHSFzE2wncqvr2cf cjogIzAwMDAwMDt0 ABr2ARKczNmpZiSqTWI6 IbC7HER2fUGcvB2toMhg outbrS7sLpp+NjYgWWVh bzP8N6VpBma5DNIw iHcvUF8mhNDrBYuzVw2v hGqkqJgtIE6fZJWmlxyw UBRsjU1lEGFdbDDalHpn BH9dXFKbpqnmn610 IfUjTQS8JNCrpPFhF4Yj gW0bAvEuGHDxNBRdD6Cl qUZwEWjpB928KWvxGoL7 JLImkfAfD0MhXLEt pQbbYdZ4w0Z1Fi8LQKpx EV00EO50qEEym5U1uGU0 B2MpBBBmcsuxisqaeAG1 YVXfLVQmdP12bUPw EScgUx9pc8D6k933PNBc LCCgsU03Gg2zvMhoUJVe oAUWoN8ysojzn8csygsy BwGfZOTjVJq8ZBo7 MIGclCeaCeJsBGT4IwI3 NFL0uKHosY2ntIwonody qS3iUzy+QB9pWCSmOA79 YY81BT83U6EdIamy dGFibGU+PHRhYmxlIHdp ZHRoPScxMDAlJyBzdHls BZ0vDh0rUJDiRXHzlDnp oLYyFiKrc8rdLWLn WJwhHE6kgXshQ7QpgPR5 HBOzp2y0Iq45Y93oK3Fd dXA+IMVkxKK7sVX1pG7l RmIzGeP9PJyxT283 ChRhqWWfMwwua6gxn2hi aVs3CuOmPAXgdtNasYxw XCT6x2XdIx15F33eQPal ZHRoPSIyMCUiIHZh wAfesy9eeZ2zRo4+PGNv zJW6vMN0dD0cVrVoAuB8 IEziX506NkZazGFqAmef N99oZ7LwrAN+PHRy Vux4OECtkRtqWW3tlMHb BVqiJn5jKDF9NiBgRhZf FVbyD2YaWDNtjazpcics dUT2CGDbOIAcpJ99 To0ouUhrYs8uMGHeKLG3 STHylNTxZ5VpwD1tBzUt DYLnKDLeR9VdiCPgLRvn A473SPrvTwF9ICYd xiBlF7HvKNYqhNiiQrJ9 g3U1Xo5VeLkcrCReJX0c NwVrUZi4J9CdZgd6NNAs bOdgVB8nmVNdDXiq Vr8qbKmixEwiQB1aFKTs ahvga978CbOyk5eyXOPz lOMaAOzxLXS7E99sd7M9 GKYmOVKcRBT5lDB2 tA7tlVjadpzhsUZdvIyj gaGbiWyeIKqxBGtzQ348 BRXzkQfkUjXESpv5T5Bw Meq1RFPsbCjdPL9q lRCpUKinPx3kePhfaHhn RR8pYTQdzpljm165RaQa o1mmZWEwtOTxFNszJPS6 F94hn9C7MUJmOYSw WER7lLB4cT1qdLlmtucl bGVmdDsgdmVydGljYWwt VBioZ757ZCRsiPusCm4A Ark0H9KnQgx3QUWf fYtpCV8dxPJgDUatIa9g lLskvAejFV7kDRJbcxay u867MsRgi1aoAOSpeOIg IAlaMXE5T43xx5D3 PWDgVPPoPHA6qRK5xP5l bGlnbjogbGVmdDsgdmVy qQmmNRluONkjD273BZBf cDsnPlBheWVyOjwv dGQ+EN25rm00H2XhYood Ffj2DUGeMGQ4dQY4aV0o RCUiABknk2C0xPF8N6Jh duXijl2yu7kkNAAq OAtsY11z (more content not included)... Normal [facility] Auto Diffon 06-27-2022 Basophils/100 WBC (Bld) 0.7 % Normal 0.0-2.0 [facility] Comment on above: Order Comment: Order Added by Discern Expert. Performed By: #### 2 [id number] #### [facility] [address] [place] [address] Basophils/Leukocytes Auto (Bld) [Pure # fraction] 0.0 E9/L Normal 0.0-0.2 [facility] Comment on above: Order Comment: Order Added by Discern Expert. Performed By: #### 2 [id number] #### [facility] [address] [place] [address] Eosinophils/100 WBC (Bld) 8.9 % High 0.0-8.0 [facility] Comment on above: Order Comment: Order Added by Discern Expert. Performed By: #### 2 [id number] #### [facility] [address] [place] [address] Eosinophils/Leukocytes Auto (Bld) [Pure # fraction] 0.5 E9/L Normal 0.0-0.5 [facility] Comment on above: Order Comment: Order Added by Discern Expert. Performed By: #### 2 325336, 1329574, 9792410, [id number], 6579253, 1684001 #### [facility] [address] [place] [address] Lymphocytes/100 WBC (Bld) 28.3 % Normal 14.0-50.0 [facility] Comment on above: Order Comment: Order Added by Discern Expert. Performed By: #### 2 193122, 7168104, 7586429, 38846322, 9474756, 0297926 #### [facility] [address] [place] [address] Lymphocytes/Leukocytes Auto (Bld) [Pure # fraction] 1.5 E9/L Normal 1.0-4.0 [facility] Comment on above: Order Comment: Order Added by Discern Expert. Performed By: #### 2 526269, 6082745, 8415998, [id number], 9724943, 1669653 #### [facility] [address] [place] [address] Monocytes/100 WBC (Bld) 10.7 % Normal 4.0-14.0 [facility] Comment on above: Order Comment: Order Added by Discern Expert. Performed By: #### 2 700589, 1909778, 4290934, 32703055, 0945895, 5146403 #### [facility] [address] [place] [address] Monocytes/Leukocytes Auto (Bld) [Pure # fraction] 0.6 E9/L Normal 0.2-1.0 [facility] Comment on above: Order Comment: Order Added by Discern Expert. Performed By: #### 2 404459, 6941901, 2183540, 90040576, 2120390, 5266642 #### [facility] [address] [place] [address] Neutrophils/100 WBC (Bld) 51.4 % Normal 36.0-75.0 [facility] Comment on above: Order Comment: Order Added by Discern Expert. Performed By: #### 2 332419, 5800812, 7747169, 69568984, 9477970, 3778685 #### [facility] [address] [place] [address] Neutrophils/Leukocytes Auto (Bld) [Pure # fraction] 2.7 E9/L Normal 2.0-7.5 [facility] Comment on above: Order Comment: Order Added by Discern Expert. Performed By: #### 2 086250, 4479861, 1473677, 30527778, 8108653, 3539793 #### [facility] [address] [place] [address] BMPon 06-27-2022 Anion gap [Moles/Vol] 9 mmol/L Normal 6-16 [facility] [place] Comment on above: Performed By: #### 2 742542, 2843410, 0789097, 04136656, 3987595, 0231119 #### [facility] [address] [place] [address] Calcium [Mass/Vol] 8.0 mg/dL Low 8.9-11.1 [facility] Comment on above: Performed By: #### 2 468504, 8339592, 7332391, 64137110, 0845583, 1595524 #### [facility] [address] [place] [address] Chloride [Moles/Vol] 105 mmol/L Normal 101-111 [facility] Comment on above: Performed By: #### 2 338795, 3115325, 1432466, 96540231, 5014554, 1362164 #### [facility] [address] [place] [address] CO2 [Moles/Vol] 26 mmol/L Normal 21-31 [facility] Comment on above: Performed By: #### 2 194886, 2086459, 4144710, 44477380, 2796694, 4130891 #### [facility] [address] [place] [address] Creatinine [Mass/Vol] 0.9 mg/dL Normal 0.5-1.3 [facility] [place] Comment on above: Performed By: #### 2 122188, 0872081, 1718377, 30513074, 3099200, 9593068 #### [facility] [address] [place] [address] Glucose [Mass/Vol] 98 mg/dL Normal 55-199 [facility] Comment on above: Result Comment: If t his glucose result represents a fasting glucose, interpretation should refer to the following reference range: 55-99 mg/dL Performed By: #### 2 800806, 6693144, 0094037, 31044950, 2694099, 8475255 #### [facility] [address] [place] [address] Potassium [Moles/Vol] 4.3 mmol/L Normal 3.5-5.3 [facility] [place] Comment on above: Performed By: #### 2 331964, 3083494, 4644947, 99831141, 0874790, 1719678 #### [facility] [address] [place] [address] Sodium [Moles/Vol] 136 mmol/L Normal 135-145 [facility] Comment on above: Performed By: #### 2 516042, 8703330, 1147936, 53378609, 2145795, 3729078 #### [facility] [address] [place] [address] Urea nitrogen [Mass/Vol] 11 mg/dL Normal 5-21 [facility] Comment on above: Performed By: #### 2 199953, 1111054, 5603979, 82869997, 0911506, 9364815 #### [facility] [address] [place] [address] Urea nitrogen/Creatinine [Mass ratio] 12 No Units Normal 10-20 [facility] [place] Comment on above: Performed By: #### 2 074924, 9436064, 7097152, 29528195, 3108903, 5700985 #### [facility] [place] [address] [place] [address] CBC w/ Auto Diffon Erythrocyte distribution width (RBC) [Ratio] 13.5 % Normal 10.9-14.2 [facility] [place] Comment on above: Performed By: #### 2 697011, 3479452, 0886115, 16027188, 5774964, 8379294 #### [facility] [place] [facility] [address] [place] [address] Hematocrit (Bld) [Volume fraction] 30.9 % Low 37.7-49.0 [facility] [place] Comment on above: Performed By: #### 2 399888, 1824869, 3362862, 28801679, 3699413, 2716642 #### [facility] [place] [facility] [address] [place] [address] Hemoglobin (Bld) [Mass/Vol] 10.6 g/dL Low 13.5-17.5 [facility] [place] Comment on above: Performed By: #### 2 439398, 0598246, 9012540, 77897702, 1423157, 5355053 #### [facility] [place] [facility] [address] [place] [address] MCH (RBC) [Entitic mass] 33.1 pg Normal 27.0-34.0 [facility] [place] Comment on above: Performed By: #### 2 991260, 9798569, 4285511, 76551516, 1496284, 0053366 #### [facility] [place] [facility] [address] [place] [address] MCHC (RBC) [Mass/Vol] 34.4 g/dL Normal 31.4-36.0 [facility] Comment on above: Performed By: #### 2 036185, 4678350, 0167084, 74244225, 5220301, 4587190 #### [facility] [place] [facility] [address] [place] [address] MCV (RBC) [Entitic vol] 96.1 fL Normal 80.0-100.0 [facility] [place] Comment on above: Performed By: #### 2 595637, 8440311, 5071862, 21542956, 2611753, 0757237 #### [facility] [place] [facility] [address] [place] [address] Platelet mean volume (Bld) [Entitic vol] 7.2 fL Normal 6.4-10.8 [facility] [place] Comment on above: Performed By: #### 2 209270, 4928565, 2699660, 04726929, 3011751, 2338155 #### [facility] [place] [facility] [address] [place] [address] Platelets (Bld) [#/Vol] 271.0 E9/L Normal 150.0-500.0 [facility] [place] Comment on above: Performed By: #### 2 347056, 2722810, 1648849, 42653585, 9464835, 0303453 #### [facility] [place] [facility] [address] [place] [address] RBC (Bld) [#/Vol] 3.2 E12/L Low 4.3-5.9 [facility] [place] Comment on above: Performed By: #### 2 042249, 8406518, 6806582, 49198646, 9762990, 0112087 #### [facility] [place] [facility] [address] [place] [address] WBC corrected for nucl RBC Auto (Bld) [#/Vol] 5.3 E9/L Normal 4.0-11.0 [facility] Comment on above: Performed By: #### 2 358649, 4031597, 2189283, 22190323, 7951820, 2079169 #### [facility] [place] [facility] [address] [place] [address] CHEMISTRYOrdered By: Lab ROP User on 06-27-2022 Glucose [Mass/Vol] 102 mg/dL High 55 - 99 mg/dL [facility] POC Subsection Comment on above: Result Comment: Kelsey jordon Meter POC Device SN [id number] Invalid Interpretation Code [facility] POC Subsection POC User ID [id number] Invalid Interpretation Code [facility] POC Subsection POC Username JANA HOLLINGSWORTH Invalid Interpretation Code [facility] POC Subsection Glucose [Mass/Vol] 93 mg/dL Normal 55 - 99 mg/dL [facility] POC Subsection Comment on above: Result Comment: Moody vogel RN/ POC Device SN [id number] Invalid Interpretation Code [facility] POC Subsection POC User ID [id number] Invalid Interpretation Code [facility] POC Subsection POC Username LUDIN PARISI Invalid Interpretation Code [facility] POC Subsection CHEMISTRYOrdered By: SYSTEM SYSTEM on 06-27-2022 Anion gap [Moles/Vol] 9 mmol/L Normal 6 - 16 mEq/L [facility] Remisol Calcium [Mass/Vol] 8.0 mg/dL Low 8.9 - 11. 1 mg/dL [facility] Chloride [Moles/Vol] 105 mmol/L Normal 101 - 1 11 mmol/L [facility] CO2 [Moles/Vol] 26 mmol/L Normal 21 - 31 mmol/L [facility] Remisol Creatinine [Mass/Vol] 0.9 mg/dL Normal 0.5 - 1.3 mg/dL [facility] Remisol GFR/1.73 sq M.predicted among blacks MDRD (S/P/Bld) [Vol rate/Area] mL/min/1.73 m2 Normal >=59mL/min/ 1.73 m2 [facility] Chem S GFR/1.73 sq M.predicted among non-blacks MDRD (S/P/Bld) [Vol rate/Area] mL/min/1.73 m2 Normal >=59mL/min/ 1.73 m2 [facility] Chem S Glucose [Mass/Vol] 98 mg/dL Normal 55 - 199 mg/dL [facility] Remisol Magnesium [Mass/Vol] 1.6 mg/dL Normal 1.3 - 2 .4 mg/dL [facility] Remisol Potassium [Moles/Vol] 4.3 mmol/L Normal 3.5 - 5.3 mmol/L [facility] Remisol Sodium [Moles/Vol] 136 mmol/L Normal 135 - 145 mmol/L [facility] Remisol Urea nitrogen [Mass/Vol] 11 mg/dL Normal 5 - 21 mg/dL [facility] Remisol Urea nitrogen/Creatinine [Mass ratio] 12 mg/mg Normal 10 - 20 [facility] Remisol Capillary Glucose POCon 06-04 Glucose [Mass/Vol] 102 mg/dL High 55-99 [facility] [place] Comment on above: Result Comment: Kelsey jordon Meter Performed By: #### 2 [id number] #### [facility] [place] [facility] [address] [place] [address] Glucose [Mass/Vol] 93 mg/dL Normal 55-99 [facility] [place] Comment on above: Result Comment: Moody FORREST Performed By: #### 2 [id number] ####[facility] [place] [address] [place] [address] Glucose [Mass/Vol] 103 mg/dL High 55-99 [facility] [place] Comment on above: Result Comment: Moody vogel RN/ Performed By: #### 2 [id number] ####[facility] [place] [address] [place] [address] Discharge Note-Nursingon Discharge Note-Nursing AMOL TAYLOR :1955 Visit Date:06/23/2022 Inpatient Discharge Instructions Your [...] Results None Pharmacy Information Other: [facility] in [place] Previously Scheduled Follow-Up Appointments Sunday 10:15 AM EST With: JAX MOELLER, Yasmani Cabrera Where: [facility] [employer] Normal [facility] [place] HEMATOLOGYOrdered By: SYSTEM SYSTEM on 06-27-2022 Basophils/100 [...] 96.1 fL Normal 80.0 - 100.0 fL [facility] HemeAutoSS Platelet mean volume (Bld) [Entitic vol] 7.2 fL Normal 6.4 - 10.8 fL [facility] HemeAutoSS Platelets (Bld) [#/Vol] 271.0 E9/L Normal 150.0 - 500.0 E9/L [facility] HemeAutoSS RBC (Bld) [#/Vol] 3.2 E12/L Low 4.3 - 5.9 E12/L [facility] HemeAutoSS WBC corrected for nucl RBC Auto (Bld) [#/Vol] 5.3 E9/L Normal 4.0 - 11.0 E9/L [facility] HemeAutoSS Inpatient Patient Summaryon 06-27-2022 Inpatient Patient Summary AMOL TAYLOR :1955 Visit Date:06/23/2022 Inpatient Discharge Instructions Your [...] Results None Pharmacy Information Other: [facility] in [place] Previously Scheduled Follow-Up Appointments Sunday 10:15 AM EST With: JAX MOELLER, Yasmani Cabrera Where: [facility] [place] Normal [facility] [place] Lamotrigine Lvlon 06-27-2022 lamoTRIgine [Mass/Vol] <1.0 Low 2.0-20.0 [facility] Comment on above: Result Comment: Dete ction Limit = 1.0 Performed at: [address] [id number] MD Wicho Espinal Performed By: #### 2 075594, 8329439, 8024809, 06859386, 7974458, 3013095 #### [facility] [place] [facility] [address] [place] [address] Magnesiumon 06-27-2022 Magnesium [Mass/Vol] 1.6 mg/dL Normal 1.3-2.4 [facility] Comment on above: Performed By: #### 2 725806, 8908329, 0847189, 21557451, 0699048, 8515810 #### [facility] [place] [facility] [address] [id number] [facility] Recordson 06-27 [facility] Records [id number] 1#1.00CD:127 Normal [facility] [place] Primidone Lvlon 06-27-2022 PHENobarbital [Mass/Vol] 15 microgram/mL Invalid Interpretation Code 15-40 [facility] [place] Comment on above: Result Comment: Dete ction Limit = 3 Performed at: [address] [id number] MD Wicho Espinal Performed By: #### 2 [id number] #### [facility] [place] [facility] [address] [place] [address] Primidone [Mass/Vol] Not detected Invalid Interpretation Code 5.0-12.0 [facility] [place] Comment on above: Result Comment: Ve rified by repeat analysis Detection Limit = 0.3 <0.3 indicates None Detected Performed By: #### 2 [id number] #### [facility] [place] [facility] [address] [place] [address] Progress Note-Nurseon 2022 Progress Note-Nurse This junior underwriter called report to [place]. patient made aware of discharge. brief changed and assisted patient with getting dressed. IV removed. Normal [facility] [place] Progress Note-Physicianon Progress Note-Physician Basic Information 67 y/o male with bowel dysmotility likely secondary to long term setting in addition to multiple anti-epileptic agents. 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 This patient's plan of care was discussed [...] TIDWM fi (more content not included)... Normal [facility] [place] Comment on above: Result Comment: Elec tronically Signed By: Laney Mitchell PA-C\.br\Date and Time Signed: 06/26/22 13:40 EDT\.br\Electronically Co-Signed By: Leonel Rowland MD\.br\Date and Time Co-Signed: 06/27/22 16:30 EDT eGFRon 06-27-2022 GFR/1.73 sq M.predicted among blacks MDRD (S/P/Bld) [Vol rate/Area] mL/min/{1.73_m2} Normal >=59 [facility] [place] Comment on above: Order Comment: Order Added by Discern Expert. Result Comment: eGFR is race adjusted. AA=. Performed By: #### 2 488947, 8024037, 4494178, 91104293, 9024827, 8901181 #### [facility] [place] [facility] [address] [place] [address] GFR/1.73 sq M.predicted among non-blacks MDRD (S/P/Bld) [Vol rate/Area] mL/min/{1.73_m2} Normal >=59 [facility] [place] Comment on above: Order Comment: Order Added by Discern Expert. Result Comment: Cruise Counselor maria c kidney disease could be indicated at eGFR's of less than 60 mL/min/1.73m2. Kidney failure is indicated at less than 15 mL/min/1.73m2. Performed By: #### 2 729948, 9661455, 8398657, 40481139, 9242048, 5000792 #### [facility] [place] [facility] [address] [place] [address] Auto Diffon 06-26-2022 Basophils/100 WBC (Bld) 1.0 % Normal 0.0-2.0 [facility] [place] Comment on above: Order Comment: Order Added by Discern Expert. Performed By: #### 2 295460, 7186317, 3776924, 92222621, 4808591, 3755679 #### [facility] [place] [facility] [address] [place] [address] Basophils/Leukocytes Auto (Bld) [Pure # fraction] 0.1 E9/L Normal 0.0-0.2 [facility] [place] Comment on above: Order Comment: Order Added by Discern Expert. Performed By: #### 2 932503, 2350598, 0669948, 82326863, 1989265, 0590302 #### [facility] [place] [facility] [address] [place] [address] Eosinophils/100 WBC (Bld) 7.4 % Normal 0.0-8.0 [facility] [place] Comment on above: Order Comment: Order Added by Discern Expert. Performed By: #### 2 477611, 2983230, 2344775, 79349107, 0333510, 0559421 #### [facility] [place] [facility] [address] [place] [address] Eosinophils/Leukocytes Auto (Bld) [Pure # fraction] 0.4 E9/L Normal 0.0-0.5 [facility] [place] Comment on above: Order Comment: Order Added by Juancarlos Expert. Performed By: #### 2 530086, 5327730, 5623619, 10387261, 2721656, 1449441 #### [facility] [place] [facility] [address] [place] [address] Lymphocytes/100 WBC (Bld) 25.8 % Normal 14.0-50.0 [facility] [place] Comment on above: Order Comment: Order Added by Juancarlos Expert. Performed By: #### 2 737605, 6678021, 7440917, 77891608, 4682791, 8225699 #### [facility] [place] [facility] [address] [place] [address] Lymphocytes/Leukocytes Auto (Bld) [Pure # fraction] 1.4 E9/L Normal 1.0-4.0 [facility] [place] Comment on above: Order Comment: Order Added by Juancarlos Expert. Performed By: #### 2 880365, 0273792, 5171917, 55563741, 5693501, 8778972 #### [facility] [place] [facility] [address] [place] [address] Monocytes/100 WBC (Bld) 10.0 % Normal 4.0-14.0 [facility] [place] Comment on above: Order Comment: Order Added by Discern Expert. Performed By: #### 2 854643, 5344754, 9310799, 85100421, 9994790, 7698988 #### [facility] [place] [facility] [address] [place] [address] Monocytes/Leukocytes Auto (Bld) [Pure # fraction] 0.6 E9/L Normal 0.2-1.0 [facility] [place] Comment on above: Order Comment: Order Added by Discern Expert. Performed By: #### 2 159287, 5698460, 3397857, 66231305, 3334044, 9436542 #### [facility] [place] [facility] [address] [place] [address] Neutrophils/100 WBC (Bld) 55.8 % Normal 36.0-75.0 [facility] [place] Comment on above: Order Comment: Order Added by Discern Expert. Performed By: #### 2 487119, 0309753, 4762778, 01487477, 8860091, 0047182 #### [facility] [place] [facility] [address] [place] [address] Neutrophils/Leukocytes Auto (Bld) [Pure # fraction] 3.1 E9/L Normal 2.0-7.5 [facility] [place] Comment on above: Order Comment: Order Added by Discern Expert. Performed By: #### 2 848474, 8555184, 5654480, 10256157, 4878840, 6257901 #### [facility] [place] [facility] [address] [place] [address] BMPon 06-26-2022 Anion gap [Moles/Vol] 8 mmol/L Normal 6-16 [facility] Comment on above: Performed By: #### 2 316852, 5814665, 9043244, 32502445, 5576953, 1376609 #### [facility] [place] [facility] [address] [place] [address] Calcium [Mass/Vol] 8.1 mg/dL Low 8.9-11.1 [facility] [place] Comment on above: Performed By: #### 2 431219, 1612533, 6683908, 95721004, 1337102, 0700504 #### [facility] [place] [facility] [address] [place] [address] Chloride [Moles/Vol] 108 mmol/L Normal 101-111 [facility] Comment on above: Performed By: #### 2 008180, 0900790, 3599843, 34189577, 8748313, 8915267 #### [facility] [place] [facility] [address] [place] [address] CO2 [Moles/Vol] 25 mmol/L Normal 21-31 [facility] Comment on above: Performed By: #### 2 740105, 8438838, 5690689, 04860853, 1722036, 9416327 #### [facility] [place] [facility] [address] [place] [address] Creatinine [Mass/Vol] 0.8 mg/dL Normal 0.5-1.3 [facility] Comment on above: Performed By: #### 2 797326, 9060801, 3902833, 41761947, 5200827, 6119053 #### [facility] [place] [address] [place] [address] Glucose [Mass/Vol] 93 mg/dL Normal 55-199 [facility] [place] Comment on above: Result Comment: If t his glucose result represents a fasting glucose, interpretation should refer to the following reference range: 55-99 mg/dL Performed By: #### 2 008161, 0411790, 1440832, 02353716, 9668559, 3812024 #### [facility] [place] [address] [place] [address] Potassium [Moles/Vol] 4.3 mmol/L Normal 3.5-5.3 [facility] Comment on above: Performed By: #### 2 739083, 5664016, 2374329, 48100117, 7061876, 4191757 #### [facility] [place] [address] [place] [address] Sodium [Moles/Vol] 137 mmol/L Normal 135-145 [facility] [place] Comment on above: Performed By: #### 2 557899, 9360562, 5721114, 63869975, 2311271, 0869283 #### [facility] [place] [facility] [address] [place] [address] Urea nitrogen [Mass/Vol] 9 mg/dL Normal 5-21 [facility] [place] Comment on above: Performed By: #### 2 289336, 7314101, 3366711, 11668411, 1013293, 0486935 #### [facility] [place] [address] [place] [address] Urea nitrogen/Creatinine [Mass ratio] 11 No Units Normal 10-20 [facility] [place] Comment on above: Performed By: #### 2 182987, 5726814, 0121357, 21926954, 6891543, 8584405 #### [facility] [place] [address] [place] [address] CBC w/ Auto Diffon Erythrocyte distribution width (RBC) [Ratio] 13.1 % Normal 10.9-14.2 [facility] [place] Comment on above: Performed By: #### 2 654705, 3820909, 9190993, 60262973, 7214985, 6393070 #### [facility] [place] [facility] [address] [place] [address] Hematocrit (Bld) [Volume fraction] 31.8 % Low 37.7-49.0 [facility] [place] Comment on above: Performed By: #### 2 049335, 5944670, 5371534, 17275846, 5301885, 9746743 #### [facility] [place] [address] [place] [address] Hemoglobin (Bld) [Mass/Vol] 10.4 g/dL Low 13.5-17.5 [facility] [place] Comment on above: Performed By: #### 2 251118, 0745783, 4440174, 36151210, 9103707, 4466457 #### [facility] [place] [address] [place] [address] MCH (RBC) [Entitic mass] 32.0 pg Normal 27.0-34.0 [facility] [place] Comment on above: Performed By: #### 2 597699, 3021243, 3308956, 44796891, 1049426, 7500233 #### [facility] [place] [facility] [address] [place] [address] MCHC (RBC) [Mass/Vol] 32.7 g/dL Normal 31.4-36.0 [facility] Comment on above: Performed By: #### 2 709413, 6807923, 5961068, 49959574, 3262406, 9883487 #### [facility] [place] [facility] [address] [place] [address] MCV (RBC) [Entitic vol] 98.0 fL Normal 80.0-100.0 [facility] [place] Comment on above: Performed By: #### 2 115379, 5023812, 7901561, 98109433, 8363435, 7860702 #### [facility] [place] [facility] [address] [place] [address] Platelet mean volume (Bld) [Entitic vol] 6.8 fL Normal 6.4-10.8 [facility] [place] Comment on above: Performed By: #### 2 381036, 4174193, 2900602, 51277348, 7432890, 8290777 #### [facility] [place] [facility] [address] [place] [address] Platelets (Bld) [#/Vol] 229.0 E9/L Normal 150.0-500.0 [facility] [place] Comment on above: Performed By: #### 2 141770, 2905763, 2575823, 91021445, 0382970, 8647296 #### [facility] [place] [address] [place] [address] RBC (Bld) [#/Vol] 3.2 E12/L Low 4.3-5.9 [facility] [place] Comment on above: Performed By: #### 2 560532, 2204776, 8250412, 19489084, 2982029, 9079919 #### [facility] [place] [address] [place] [address] WBC corrected for nucl RBC Auto (Bld) [#/Vol] 5.6 E9/L Normal 4.0-11.0 [facility] Comment on above: Performed By: #### 2 528126, 4139816, 3195799, 81407857, 2596950, 3703809 #### [facility] [address] [place] [address] CHEMISTRYOrdered By: Lab ROP User on 06-26-2022 Glucose [Mass/Vol] 103 mg/dL High 55 - 99 mg/dL [facility] POC Subsection Comment on above: Result Comment: Moody vogel RN/ POC Device SN [id number] Invalid Interpretation Code [facility] POC Subsection POC User ID [id number] Invalid Interpretation Code [facility] POC Subsection POC Username NELLYGuido GEETA Invalid Interpretation Code [facility] POC Subsection CHEMISTRYOrdered By: SYSTEM SYSTEM on 06-26-2022 Anion gap [Moles/Vol] 8 mmol/L Normal 6 - 16 mEq/L [facility] Remisol Calcium [Mass/Vol] 8.1 mg/dL Low 8.9 - 11. 1 mg/dL [facility] Chloride [Moles/Vol] 108 mmol/L Normal 101 - 1 11 mmol/L [facility] CO2 [Moles/Vol] 25 mmol/L Normal 21 - 31 mmol/L [facility] Creatinine [Mass/Vol] 0.8 mg/dL Normal 0.5 - 1.3 mg/dL [facility] Remisol GFR/1.73 sq M.predicted among blacks MDRD (S/P/Bld) [Vol rate/Area] mL/min/1.73 m2 Normal >=59mL/min/ 1.73 m2 [facility] Chem S GFR/1.73 sq M.predicted among non-blacks MDRD (S/P/Bld) [Vol rate/Area] mL/min/1.73 m2 Normal >=59mL/min/ 1.73 m2 [facility] Chem S Glucose [Mass/Vol] 93 mg/dL Normal 55 - 199 mg/dL [facility] Magnesium [Mass/Vol] 1.6 mg/dL Normal 1.3 - 2 .4 mg/dL [facility] Potassium [Moles/Vol] 4.3 mmol/L Normal 3.5 - 5.3 mmol/L [facility] Sodium [Moles/Vol] 137 mmol/L Normal 135 - 145 mmol/L [facility] Remisol Urea nitrogen [Mass/Vol] 9 mg/dL Normal 5 - 21 mg/dL [facility] Remisol Urea nitrogen/Creatinine [Mass ratio] 11 mg/mg Normal 10 - 20 [facility] Remisol Capillary Glucose POCon 06-04 Glucose [Mass/Vol] 109 mg/dL High 55-99 [facility] [place] Comment on above: Result Comment: Moody FORREST Performed By: #### 2 515049, 0569992, 3172420, 80888371, 3744744, 3911314 #### [facility] [place] [address] [place] [address] Glucose [Mass/Vol] 62 mg/dL Normal 55-99 [facility] [place] Comment on above: Result Comment: Moody FORREST Performed By: #### 2 [id number] #### [facility] [place] [address] [place] [address] Glucose [Mass/Vol] 92 mg/dL Normal 55-99 [facility] [place] Comment on above: Result Comment: Moody FORREST Performed By: #### 2 082037, 0025392, 0644602, 55548766, 6261942, 8542423 #### [facility] [place] [address] [place] [address] Glucose [Mass/Vol] 114 mg/dL High 55-99 [facility] [place] Comment on above: Result Comment: Moody FORREST Performed By: #### 2 019841, 2210520, 4819339, 08574444, 2943424, 8340184 #### [facility] [place] [address] [place] [address] HEMATOLOGYOrdered By: SYSTEM SYSTEM on 06-26-2022 Basophils/100 WBC (Bld) 1.0 % Normal 0.0 - 2.0 % [facility] HemeAutoSS Basophils/Leukocytes Auto (Bld) [Pure # fraction] 0.1 E9/L Normal 0.0 - 0.2 E9/L [facility] HemeAutoSS Eosinophils/100 WBC (Bld) 7.4 % Normal [...] 3.2 E12/L Low 4.3 - 5.9 E12/L [facility] Corporation[facility]SS WBC corrected for nucl RBC Auto (Bld) [#/Vol] 5.6 E9/L Normal 4.0 - 11.0 E9/L [facility] HemeAutoSS Insurance Correspondence Off iceon 06-26-2022 Insurance Correspondence Office [id number] 5#1.00CD:127 Normal [facility] Interdisciplinary Note - Poli e Manageron 06-26-2022 Interdisciplinary Note - [employer] spoke with patient in room. Patient is alert and oriented to self and attempts participates in discharge planning. No family in room. Patient white board updated, and CRM contact information provided. Discussed CRM will wait to talk to gen renee Swanson today and when ready for discharge will plan for return to [facility] living. Patient is on a full liquid diet and is eating at this time. CRM will update sister Elizabeth desiran later today. Normal [facility] Comment on above: Result Comment: Elec tronically Signed By: [place] BHATT, Shirin\.br\Date and Time Signed: 06/26/22 09:37 EDT Magnesiumon 06-26-2022 Magnesium [Mass/Vol] 1.6 mg/dL Normal 1.3-2.4 [facility] Comment on above: Performed By: #### 2 401513, 9871833, 6147633, 91055272, 8705030, 9384588 #### [facility] [address] [place] [address] Message from Medicareon 06-04 Message from Medicare [id number] 2#1.00CD:127 Normal [facility] [place] eGFRon 06-26-2022 GFR/1.73 sq M.predicted among blacks MDRD (S/P/Bld) [Vol rate/Area] mL/min/{1.73_m2} Normal >=59 [facility] Comment on above: Order Comment: Order added by Discern Expert. Result Comment: eGFR is race adjusted. AA=. Performed By: #### 2 597364, 9640949, 7561831, 59561429, 9988285, 2865972 #### [facility] [address] [place] [address] GFR/1.73 sq M.predicted among non-blacks MDRD (S/P/Bld) [Vol rate/Area] mL/min/{1.73_m2} Normal >=59 [facility] Comment on above: Order Comment: Order added by Discern Expert. Result Comment: Cruise Counselor maria c kidney disease could be indicated at eGFR's of less than 60 mL/min/1.73m2. Kidney failure is indicated at less than 15 mL/min/1.73m2. Performed By: #### 2 928446, 5267761, 9383989, 38725211, 7725922, 2816228 #### [facility] [address] [place] [address] Auto Diffon 06-25-2022 Basophils/100 WBC (Bld) 0.4 % Normal 0.0-2.0 [facility] Comment on above: Order Comment: Order Added by Discern Expert. Performed By: #### 2 282709, 9090580, 5566342, 38689529, 8731003, 3769821 #### [facility] [address] [place] [address] Basophils/Leukocytes Auto (Bld) [Pure # fraction] 0.0 E9/L Normal 0.0-0.2 [facility] Comment on above: Order Comment: Order Added by Discern Expert. Performed By: #### 2 379914, 7455814, 3544253, 76417727, 7526792, 9806821 #### [facility] [address] [place] [address] Eosinophils/100 WBC (Bld) 2.5 % Normal 0.0-8.0 [facility] Comment on above: Order Comment: Order Added by Discern Expert. Performed By: #### 2 866096, 7553373, 8210382, 78323550, 0322502, 9178704 #### [facility] [address] [place] [address] Eosinophils/Leukocytes Auto (Bld) [Pure # fraction] 0.2 E9/L Normal 0.0-0.5 [facility] Comment on above: Order Comment: Order Added by Discern Expert. Performed By: #### 2 393886, 1749323, 6748807, 39167164, 8046269, 8377593 #### [facility] [address] [place] [address] Lymphocytes/100 WBC (Bld) 20.1 % Normal 14.0-50.0 [facility] Comment on above: Order Comment: Order Added by Discern Expert. Performed By: #### 2 157412, 2820192, 5583263, 85785368, 8333012, 6995437 #### [facility] [address] [place] [address] Lymphocytes/Leukocytes Auto (Bld) [Pure # fraction] 1.5 E9/L Normal 1.0-4.0 [facility] Comment on above: Order Comment: Order Added by Juancarlos Expert. Performed By: #### 2 040194, 5654111, 2109202, 49942108, 1916019, 3271524 #### [facility] [address] [place] [address] Monocytes/100 WBC (Bld) 9.3 % Normal 4.0-14.0 [facility] Comment on above: Order Comment: Order Added by Juancarlos Expert. Performed By: #### 2 487232, 4103531, 9569217, 58415387, 6214465, 2200473 #### [facility] [address] [place] [address] Monocytes/Leukocytes Auto (Bld) [Pure # fraction] 0.7 E9/L Normal 0.2-1.0 [facility] Comment on above: Order Comment: Order Added by Juancarlos Expert. Performed By: #### 2 290115, 8882368, 1242507, 20981479, 2647565, 0588704 #### [facility] [address] [place] [address] Neutrophils/100 WBC (Bld) 67.7 % Normal 36.0-75.0 [facility] Comment on above: Order Comment: Order Added by Discern Expert. Performed By: #### 2 920879, 7704527, 2015530, 95229264, 7613452, 9863674 #### [facility] [address] [place] [address] Neutrophils/Leukocytes Auto (Bld) [Pure # fraction] 4.9 E9/L Normal 2.0-7.5 [facility] Comment on above: Order Comment: Order Added by Discern Expert. Performed By: #### 2 089871, 5248127, 2039757, 00015732, 3870630, 4252053 #### [facility] [address] [place] [address] BMPon 06-25-2022 Anion gap [Moles/Vol] 8 mmol/L Normal 6-16 [facility] Comment on above: Performed By: #### 2 298823, 9980499, 5771085, 31517357, 9690424, 4995281 #### [facility] [address] [place] [address] Calcium [Mass/Vol] 7.6 mg/dL Low 8.9-11.1 [facility] Comment on above: Performed By: #### 2 418451, 9432753, 0506774, 61019267, 7928168, 7052711 #### [facility] [address] [place] [address] Chloride [Moles/Vol] 108 mmol/L Normal 101-111 [facility] Comment on above: Performed By: #### 2 520652, 8158746, 3745938, 61042073, 0869482, 6964612 #### [facility] [address] [place] [address] CO2 [Moles/Vol] 23 mmol/L Normal 21-31 [facility] Comment on above: Performed By: #### 2 775274, 9315186, 5641186, 66380522, 3219986, 1625357 #### [facility] [address] [place] [address] Creatinine [Mass/Vol] 0.7 mg/dL Normal 0.5-1.3 [facility] Comment on above: Performed By: #### 2 238979, 5919786, 0598256, 46023241, 7820858, 6505681 #### [facility] [address] [place] [address] Glucose [Mass/Vol] 105 mg/dL Normal 55-199 [facility] Comment on above: Result Comment: If t his glucose result represents a fasting glucose, interpretation should refer to the following reference range: 55-99 mg/dL Performed By: #### 2 213226, 2676617, 8871376, 73703098, 2049754, 8396715 #### [facility] [address] [place] [address] Potassium [Moles/Vol] 3.0 mmol/L Low 3.5-5.3 [facility] Comment on above: Performed By: #### 2 490445, 4590992, 2485785, 23486147, 1521498, 3255201 #### [facility] [address] [place] [address] Sodium [Moles/Vol] 136 mmol/L Normal 135-145 [facility] Comment on above: Performed By: #### 2 183898, 3282745, 4932047, 62835231, 6448635, 9562020 #### [facility] [address] [place] [address] Urea nitrogen [Mass/Vol] 6 mg/dL Normal 5-21 [facility] Comment on above: Performed By: #### 2 788595, 2140171, 8714219, 39823487, 2094940, 9200160 #### [facility] [address] [place] [address] Urea nitrogen/Creatinine [Mass ratio] 9 No Units Low 10-20 [facility] Comment on above: Performed By: #### 2 447933, 3396150, 9209057, 43796001, 2707854, 7512043 #### [facility] [address] [place] [id number] CBC w/ Auto Diffon Erythrocyte distribution width (RBC) [Ratio] 13.4 % Normal 10.9-14.2 [facility] Comment on above: Performed By: #### 2 578444, 8655093, 5846333, 16607509, 2925751, 0642156 #### [facility] [address] [place] [address] Hematocrit (Bld) [Volume fraction] 30.9 % Low 37.7-49.0 [facility] Comment on above: Performed By: #### 2 691825, 4218213, 6663458, 81191378, 9134252, 8761924 #### [facility] [address] [place] [address] Hemoglobin (Bld) [Mass/Vol] 10.5 g/dL Low 13.5-17.5 [facility] Comment on above: Performed By: #### 2 548117, 1905531, 8103680, 86785102, 5999577, 6575781 #### [facility] [address] [place] [address] MCH (RBC) [Entitic mass] 32.6 pg Normal 27.0-34.0 [facility] Comment on above: Performed By: #### 2 526159, 7364160, 1388449, 41026019, 1227093, 8851081 #### [facility] [address] [place] [id number] MCHC (RBC) [Mass/Vol] 34.0 g/dL Normal 31.4-36.0 [facility] Comment on above: Performed By: #### 2 640170, 7189651, 1941389, 64574157, 1424843, 7927732 #### [facility] [address] [place] [address] MCV (RBC) [Entitic vol] 95.9 fL Normal 80.0-100.0 [facility] Comment on above: Performed By: #### 2 980669, 2943431, 8195093, 84208753, 8134280, 1174246 #### [facility] [address] [place] [address] Platelet mean volume (Bld) [Entitic vol] 7.1 fL Normal 6.4-10.8 [facility] Comment on above: Performed By: #### 2 017997, 2896857, 4128201, 32655651, 5804563, 8436161 #### [facility] [address] [place] [address] Platelets (Bld) [#/Vol] 224.0 E9/L Normal 150.0-500.0 [facility] Comment on above: Performed By: #### 2 391866, 8605677, 3946632, 62032022, 3616776, 7846912 #### [facility] [address] [place] [address] RBC (Bld) [#/Vol] 3.2 E12/L Low 4.3-5.9 [facility] Comment on above: Performed By: #### 2 700440, 6750712, 7745584, 18190791, 8870418, 2504589 #### [facility] [address] [place], [place] [address] WBC corrected for nucl RBC Auto (Bld) [#/Vol] 7.2 E9/L Normal 4.0-11.0 [facility] Comment on above: Performed By: #### 2 597353, 7942684, 4249225, 88845953, 2379548, 9062466 #### [facility] [address] [place] [address] CHEMISTRYOrdered By: SYSTEM SYSTEM on 06-25-2022 Anion gap [Moles/Vol] 8 mmol/L Normal 6 - 16 mEq/L [facility] Remisol Calcium [Mass/Vol] 7.6 mg/dL Low 8.9 - 11. 1 mg/dL [facility] Chloride [Moles/Vol] 108 mmol/L Normal 101 - 1 11 mmol/L [facility]isol CO2 [Moles/Vol] 23 mmol/L Normal 21 - 31 mmol/L [facility] Remisol Creatinine [Mass/Vol] 0.7 mg/dL Normal 0.5 - 1.3 mg/dL [facility] Remisol GFR/1.73 sq M.predicted among blacks MDRD (S/P/Bld) [Vol rate/Area] mL/min/1.73 m2 Normal >=59mL/min/ 1.73 m2 [facility] Chem S GFR/1.73 sq M.predicted among non-blacks MDRD (S/P/Bld) [Vol rate/Area] mL/min/1.73 m2 Normal >=59mL/min/ 1.73 m2 [facility] Chem S Glucose [Mass/Vol] 105 mg/dL Normal 55 - 199 mg/dL [facility] Remisol Potassium [Moles/Vol] 3.0 mmol/L Low 3.5 - 5.3 mmol/L [facility] Remisol Sodium [Moles/Vol] 136 mmol/L Normal 135 - 145 mmol/L [facility] Remisol Urea nitrogen [Mass/Vol] 6 mg/dL Normal 5 - 21 mg/dL [facility] Remisol Urea nitrogen/Creatinine [Mass ratio] 9 mg/mg Low 10 - 20 [facility] Remisol Capillary Glucose POCon -2 Glucose [Mass/Vol] 95 mg/dL Normal 55-99 [facility] Comment on above: Result Comment: Moody FORREST Performed By: #### 2 [id number] #### [facility] [address] [place] [address] Glucose [Mass/Vol] 115 mg/dL High 55-99 [facility] Comment on above: Result Comment: Moody FORREST Performed By: #### 2 235937, 4636940, 8512161, 26378400, 4932839, 8131624 #### [facility] [address] [place] [address] Glucose [Mass/Vol] 89 mg/dL Normal 55-99 [facility] Comment on above: Result Comment: Moody FORREST Performed By: #### 2 [id number] ####[facility] [address] [place] [address] Glucose [Mass/Vol] 104 mg/dL High 55-99 [facility] Comment on above: Result Comment: Moody vogel RN/ Performed By: #### 2 35105284 #### [facility] [address] [place] [address] HEMATOLOGYOrdered By: SYSTEM SYSTEM on 06-25-2022 Basophils/100 [...] 34.0 g/dL Normal 31.4 - 36.0 gm/dL [facility] HemeAutoSS MCV (RBC) [Entitic vol] 95.9 fL Normal 80.0 - 100.0 fL [facility] HemeAutoSS Platelet mean volume (Bld) [Entitic vol] 7.1 fL Normal 6.4 - 10.8 fL [facility] HemeAutoSS Platelets (Bld) [#/Vol] 224.0 E9/L Normal 150.0 - 500.0 E9/L [facility] HemeAutoSS RBC (Bld) [#/Vol] 3.2 E12/L Low 4.3 - 5.9 E12/L [facility] HemeAutoSS WBC corrected for nucl RBC Auto (Bld) [#/Vol] 7.2 E9/L Normal 4.0 - 11.0 E9/L [facility] HemeAutoSS Insurance Correspondence Off iceon 06-25-2022 Insurance Correspondence Office [phone] [id number] 7#[id number] Normal [facility] Progress Note-Nurseon 2022 Progress Note-Nurse I concur with HOME HEALTH TRAVEL PT documentation Normal [facility] Progress Note-Nurse Patient sat up at a full 90 degree angle and assessed for swallowing. A small sip of water administered via cup and patient tolerated well. No coughing or signs of aspiration noted. Patient then given a straw and continues to tolerate water with no complications. Plan of care discussed with the HOME HEALTH TRAVEL PT and ordered PO medications will be administered with water. Patient denies nausea and GI upset both before and after drinking liquids. Normal [facility] Progress Note-Physicianon Progress Note-Physician Basic Information 67 y/o male with bowel dysmotility likely secondary to long term setting in addition to multiple anti-epileptic agents. [...] 06:38:00) Lymph Auto: 20.1 % (06/25/22 06:38:00) Prowers Auto: 9.3 % (06/25/22 06:38:00) Eos Auto: 2.5 % (06/25/22 06:38:00) Basophil Auto: 0.4 % (06/25/22 06:38:00) Neutro Absolute: 4.9 E9/L (06/25/22 06:38:00) Lymph Absolute: 1.5 E9/L (06/25/22 06:38:00) [place] Absolute: 0.7 E9/L (06/25/22 06:38:00) Eos Absolute: [...] 89 mg/dL (06/25/22 11:42:00) POC Device SN: [id number] (06/25/22 11:42:00) POC User ID: [id number] (06/25/22 11:42:00) POC Username: POC Username (06/25/22 [...] 4 ta (more content not included)... Normal [facility] Comment on above: Result Comment: Elec tronically Signed By: Kari Sales MD\.br\Date and Time Signed: 06/25/22 12:09 EDT XR [...] mGy = na DAP = na Normal [facility] eGFRon 06-25-2022 GFR/1.73 sq M.predicted among blacks MDRD (S/P/Bld) [Vol rate/Area] mL/min/{1.73_m2} Normal >=59 [facility] Comment on above: Order Comment: Order added by Discern Expert. Result Comment: eGFR is race adjusted. AA=. Performed By: #### 2 629938, 4839492, 2896334, 86035929, 2504755, 6867243 #### [facility] [address] [place] [address] GFR/1.73 sq M.predicted among non-blacks MDRD (S/P/Bld) [Vol rate/Area] mL/min/{1.73_m2} Normal >=59 [facility] Comment on above: Order Comment: Order added by Discern Expert. Result Comment: Cruise Counselor maria c kidney disease could be indicated at eGFR's of less than 60 mL/min/1.73m2. Kidney failure is indicated at less than 15 mL/min/1.73m2. Performed By: #### 2 283242, 0365676, 1893043, 47266529, 9375473, 9386860 #### [facility] [address] [place] [address] Auto Diffon 06-24-2022 Basophils/100 WBC (Bld) 0.5 % Normal 0.0-2.0 [facility] Comment on above: Order Comment: Order Added by Discern Expert. Performed By: #### 2 [id number] #### [facility] [address] [place] [address] Basophils/Leukocytes Auto (Bld) [Pure # fraction] 0.1 E9/L Normal 0.0-0.2 [facility] Comment on above: Order Comment: Order Added by Discern Expert. Performed By: #### 2 05470390 #### [facility] [address] [place] [address] Eosinophils/100 WBC (Bld) 0.8 % Normal 0.0-8.0 [facility] Comment on above: Order Comment: Order Added by Discern Expert. Performed By: #### 2 [id number] #### [facility] [address] [place] [address] Eosinophils/Leukocytes Auto (Bld) [Pure # fraction] 0.1 E9/L Normal 0.0-0.5 [facility] Comment on above: Order Comment: Order Added by Discern Expert. Performed By: #### 2 [id number] #### [facility] [address] [place] [address] Lymphocytes/100 WBC (Bld) 10.0 % Low 14.0-50.0 [facility] Comment on above: Order Comment: Order Added by Discern Expert. Performed By: #### 2 [id number] #### [facility] [address] [place] [address] Lymphocytes/Leukocytes Auto (Bld) [Pure # fraction] 1.2 E9/L Normal 1.0-4.0 [facility] Comment on above: Order Comment: Order Added by Discern Expert. Performed By: #### 2 16008445 #### [facility] [address] [place] [address] Monocytes/100 WBC (Bld) 6.3 % Normal 4.0-14.0 [facility] Comment on above: Order Comment: Order Added by Discern Expert. Performed By: #### 2 [id number] #### [facility] [address] [place] [address] Monocytes/Leukocytes Auto (Bld) [Pure # fraction] 0.7 E9/L Normal 0.2-1.0 [facility] Comment on above: Order Comment: Order Added by Discern Expert. Performed By: #### 2 [id number] #### [facility] [address] [place] [address] Neutrophils/100 WBC (Bld) 82.4 % High 36.0-75.0 [facility] Comment on above: Order Comment: Order Added by Discern Expert. Performed By: #### 2 [id number] #### [facility] [address] [place] [address] Neutrophils/Leukocytes Auto (Bld) [Pure # fraction] 9.5 E9/L High 2.0-7.5 [facility] Comment on above: Order Comment: Order Added by Discern Expert. Performed By: #### 2 49670470 #### [facility] [address] [place] [address] BMPon 06-24-2022 Anion gap [Moles/Vol] 16 mmol/L Normal 6-16 [facility] Comment on above: Performed By: #### 2 [id number] #### [facility] [address] [place] [address] Calcium [Mass/Vol] 8.4 mg/dL Low 8.9-11.1 [facility] Comment on above: Performed By: #### 2 65377931 #### [facility] [address] [place] [address] Chloride [Moles/Vol] 108 mmol/L Normal 101-111 [facility] Comment on above: Performed By: #### 2 86344077 #### [facility] [address] [place] [address] CO2 [Moles/Vol] 18 mmol/L Low 21-31 [facility] Comment on above: Performed By: #### 2 [id number] #### [facility] [address] [place] [address] Creatinine [Mass/Vol] 0.8 mg/dL Normal 0.5-1.3 [facility] Comment on above: Performed By: #### 2 [id number] #### [facility] [address] [place] [address] Glucose [Mass/Vol] 68 mg/dL Normal 55-199 [facility] Comment on above: Result Comment: If t his glucose result represents a fasting glucose, interpretation should refer to the following reference range: 55-99 mg/dL Performed By: #### 2 [id number] #### [facility] [address] [place] [address] Potassium [Moles/Vol] 3.5 mmol/L Normal 3.5-5.3 [facility] Comment on above: Performed By: #### 2 66647492 #### [facility] [address] [place] [address] Sodium [Moles/Vol] 138 mmol/L Normal 135-145 [facility] Comment on above: Performed By: #### 2 [id number] #### [facility] [address] [place] [address] Urea nitrogen [Mass/Vol] 8 mg/dL Normal 5-21 [facility] Comment on above: Performed By: #### 2 43969348 #### [facility] [address] [place] [address] Urea nitrogen/Creatinine [Mass ratio] 10 No Units Normal 10-20 [facility] Comment on above: Performed By: #### 2 [id number] #### [facility] [address] [place] [address] CBC w/ Auto Diffon 3 Erythrocyte distribution width (RBC) [Ratio] 13.3 % Normal 10.9-14.2 [facility] Comment on above: Performed By: #### 2 [id number] #### [facility] [address] [place] [address] Hematocrit (Bld) [Volume fraction] 34.0 % Low 37.7-49.0 [facility] Comment on above: Performed By: #### 2 [id number] #### [facility] [address] [place] [address] Hemoglobin (Bld) [Mass/Vol] 11.3 g/dL Low 13.5-17.5 [facility] Comment on above: Performed By: #### 2 [id number] #### [facility] [address] [place] [address] MCH (RBC) [Entitic mass] 32.1 pg Normal 27.0-34.0 [facility] Comment on above: Performed By: #### 2 26734047 #### [facility] [address] [place] [address] MCHC (RBC) [Mass/Vol] 33.2 g/dL Normal 31.4-36.0 [facility] Comment on above: Performed By: #### 2 [id number] #### [facility] [address] [place] [address] MCV (RBC) [Entitic vol] 96.5 fL Normal 80.0-100.0 [facility] Comment on above: Performed By: #### 2 [id number] #### [facility] [address] [place] [address] Platelet mean volume (Bld) [Entitic vol] 7.4 fL Normal 6.4-10.8 [facility] Comment on above: Performed By: #### 2 [id number] #### [facility] [address] [place] [address] Platelets (Bld) [#/Vol] 244.0 E9/L Normal 150.0-500.0 [facility] Comment on above: Performed By: #### 2 [id number] #### [facility] [address] [place] [address] RBC (Bld) [#/Vol] 3.5 E12/L Low 4.3-5.9 [facility] Comment on above: Performed By: #### 2 [id number] #### [facility] [address] [place] [address] WBC corrected for nucl RBC Auto (Bld) [#/Vol] 11.6 E9/L High 4.0-11.0 [facility] Comment on above: Performed By: #### 2 [id number] #### [facility] [address] [place] [address] CHEMISTRYOrdered By: SYSTEM SYSTEM on 06-24-2022 Magnesium [Mass/Vol] 1.4 mg/dL Normal 1.3 - 2 .4 mg/dL [facility] Remisol Capillary Glucose POCon 06-04 Glucose [Mass/Vol] 104 mg/dL High 55-99 [facility] Comment on above: Result Comment: Moody vogel RN/ Performed By: #### 2 [id number] ####[facility] [address] [place] [address] Glucose [Mass/Vol] 155 mg/dL High 55-99 [facility] Comment on above: Result Comment: Moody vogle RN/ Performed By: #### 2 670891, 8265021, 0929397, 64961347, 0190775, 3847053 #### [facility] [address] [place] [address] Glucose [Mass/Vol] 52 mg/dL Low 55-99 [facility] Comment on above: Result Comment: Moody vogel RN/ Performed By: #### 2 [id number] ####[facility] [address] [place] [address] Interdisciplinary Note - Poli e Manageron 06-24-2022 Interdisciplinary Note - [employer] spoke with patient and his sister Elizabeth in room. Waiting DR Sales to see today. Patient is alert and oriented to self. Sister Elizabeth is guardian. Whiteboard updated and CRM contact # provided. Patients sister verified PCP, insurance and DME. [facility] [place] [facility] states [facility] will come to transport back at discharge. Patient has an NG tube to suction. Sister states he was admitted to [facility] on 06/21 and she requested he be transferred here as gen sx did procedures here 1 year ago. Reviewed medicare rights, she denies any questions and signed form. gave her a copy of signed form. Normal [facility] Comment on above: Result Comment: Elec tronically Signed By: [place] BHATT, Shirin\.br\Date and Time Signed: 06/24/22 17:11 EDT Magnesiumon 06-24-2022 Magnesium [Mass/Vol] 1.4 mg/dL Normal 1.3-2.4 [facility] mcgow[facility] Comment on above: Performed By: #### 2 [id number] #### [facility] [address] [place] [address] Reference Laboratory Testing Ordered By: Generated DomainUser on 06-24-2022 lamoTRIgine [Mass/Vol] microgram/mL Low 2.0-2 0.0mcg /mL [facility] [employer]OutsSS Comment on above: Result Comment: Dete ction Limit = 1.0 Performed at: [facility] [address] [id number] MD Wicho Espinal PHENobarbital [Mass/Vol] 15 microgram/mL Invalid Interpretation Code 15-40mcg/mL [facility] Comment on above: Result Comment: Dete ction Limit = 3 Performed at: [facility] [id number] MD Wicho Espinal Primidone [Mass/Vol] Not detected Invalid Interpretation Code 5.0-12.0 [facility] Comment on above: Result Comment: Ve rified by repeat analysis Detection Limit = 0.3 <0.3 indicates None Detected XR Abdomen 1 Viewon 06-25-19 23 XR Abdomen 1 View Exam Date/Time: 06/24/2022 [...] mGy = na DAP = na Normal [facility] eGFRon 06-24-2022 GFR/1.73 sq M.predicted among blacks MDRD (S/P/Bld) [Vol rate/Area] mL/min/{1.73_m2} Normal >=59 [facility] Comment on above: Order Comment: Order added by Discern Expert. Result Comment: eGFR is race adjusted. AA=. Performed By: #### 2 [id number] #### [facility] [address] [place] [address] GFR/1.73 sq M.predicted among non-blacks MDRD (S/P/Bld) [Vol rate/Area] mL/min/{1.73_m2} Normal >=59 [facility] Comment on above: Order Comment: Order added by Discern Expert. Result Comment: Cruise Counselor maria c kidney disease could be indicated at eGFR's of less than 60 mL/min/1.73m2. Kidney failure is indicated at less than 15 mL/min/1.73m2. Performed By: #### 2 [id number] #### [facility] [address] [place] [address] CBC auto differentialon 06-04 Absolute Eos # 0.25 [facility] Absolute Immature Granulocyte [facility] Absolute Lymph # 1.16 [facility] Absolute Prowers # 0.48 [facility] Basophils (Bld) [#/Vol] 0.04 10*3/uL [facility] Basophils/100 WBC (Bld) 1 % 0 - 2 % [facility] Eosinophils/100 WBC (Bld) 4 % 1 - 4 % [facility] Hematocrit (Bld) [Volume fraction] 29.9 % Low 40.7 - 50.3 % [facility] Hemoglobin (Bld) [Mass/Vol] 9.8 g/dL Low 13.0 - 17.0 g/dL [facility] Immature granulocytes/100 WBC (Bld) 0 % 0 [facility] Interpretation and review of laboratory results Abnormal [facility] Lymphocytes/100 WBC (Bld) 16 % Low 24 - 43 % [facility] MCH (RBC) [Entitic mass] 33.2 pg 25.2 - 33.5 pg [facility] MCHC (RBC) [Mass/Vol] 32.8 g/dL 28.4 - 34.8 g/dL [facility] MCV (RBC) [Entitic vol] 101.4 fL 82.6 - 102.9 fL [facility] Monocytes/100 WBC (Bld) 7 % 3 - 12 % [facility] NRBC Automated 0.0 0.0 per 100 WBC [facility] Platelet distribution width (Bld) [Ratio] 12.7 % 11.8 - 14.4 % [facility] Platelet mean volume (Bld) [Entitic vol] 8.9 fL 8.1 - 13.5 fL [facility] Platelets (Bld) [#/Vol] 191 10*3/uL [facility] RBC (Bld) [#/Vol] 2.95 10*6/uL Low 4.21 - 5.7 7 m/uL [facility] Segmented neutrophils/100 WBC (Bld) 72 % High 36 - 65 % [facility] Segs Absolute 5.18 [facility] WBC (Bld) [#/Vol] 7.1 10*3/uL [facility] CBC with Diffon 06-23-2022 Abs. Basophil 0.04 k/uL Normal 0.00-0.20 [facility] Comment on above: Performed By: #### YULIYA COUGHLIN, CDP #### [facility] [address] [place] [address] [place] [address] Program Planner: David Montez MD Abs.Imm.Granulocyte <0.03 Normal 0.00-0.30 [facility] Comment on above: Performed By: #### YULIYA COUGHLIN, CDP #### [address] [place] [address] Program Planner: David Montez MD Abs.Neutrophil (Seg) 5.18 k/uL Normal 1.50-8.10 [facility] Comment on above: Performed By: #### YULIYA COUGHLIN, CDP #### [facility] [address] [place] [address] [place] [address] Program Planner: David Montez MD Basophils/100 WBC (Bld) 1 % Normal 0-2 [facility] Comment on above: Performed By: #### YULIYA COUGHLIN, CDP #### [facility] [address] [place] [address] [place] [address] Program Planner: David Montez MD Eosinophils (Bld) [#/Vol] 0.25 10*3/uL Normal 0.00-0.44 [facility] Comment on above: Performed By: #### YULIYA COUGHLIN, CDP #### [address] [place] [address] Program Planner: David Montez MD Eosinophils/100 WBC (Bld) 4 % Normal 1-4 [facility] Comment on above: Performed By: #### YULIYA COUGHLIN, CDP #### [address] [place], [place] [id number] Program Planner: David Montez MD Erythrocyte distribution width (RBC) [Ratio] 12.7 % Normal 11.8-14.4 [facility] Comment on above: Performed By: #### YULYIA COUGHLIN, CDP #### [address] [place] [address] Program Planner: David Montez MD Hematocrit (Bld) [Volume fraction] 29.9 % Low 40.7-50.3 [facility] Comment on above: Performed By: #### YULIYA COUGHLIN, CDP #### [address] [place], [place] [id number] Program Planner: David Montez MD Hemoglobin (Bld) [Mass/Vol] 9.8 g/dL Low 13.0-17.0 [facility] Comment on above: Performed By: #### YULIYA COUGHLIN, CDP #### [address] [place], [place] [id number] Program Planner: David Montez MD Immature granulocytes/100 WBC (Bld) 0 % Normal 0 [facility] Comment on above: Performed By: #### YULIYA COUGHLIN, CDP #### [address] [place] [address] Program Planner: David Montez MD Lymphocytes (Bld) [#/Vol] 1.16 10*3/uL Normal 1.10-3.70 [facility] Comment on above: Performed By: #### YULIYA COUGHLIN, CDP #### [address] [place], [place] [id number] Program Planner: David Montez MD Lymphocytes/100 WBC (Bld) 16 % Low 24-43 [facility] Comment on above: Performed By: #### YULIYA COUGHLIN, CDP #### [address] [place], [place] 9101783 Program Planner: David Montez MD MCH (RBC) [Entitic mass] 33.2 pg Normal 25.2-33.5 [facility] Comment on above: Performed By: #### YULIYA COUGHLIN, CDP #### [address] [place], [place] 9196383 Program Planner: David Montez MD MCHC (RBC) [Mass/Vol] 32.8 g/dL Normal 28.4-34.[address] [facility] Comment on above: Performed By: #### YULIYA COUGHLIN, CDP #### [address] [place] [address] Program Planner: David Montez MD MCV (RBC) [Entitic vol] 101.4 fL Normal 82.6-102.9 [facility] Comment on above: Performed By: #### YULIYA COUGHLIN, CDP #### [address] [place], [place] [id number] Program Planner: David Montez MD Monocytes (Bld) [#/Vol] 0.48 10*3/uL Normal 0.10-1.20 [facility] Comment on above: Performed By: #### YULIYA COUGHLIN, CDP #### [address] [place] [address] Program Planner: David Montez MD Monocytes/100 WBC (Bld) 7 % Normal 3-12 [facility] Comment on above: Performed By: #### R ANNE MARIE, IPF, CDP #### [facility] [address] [place], [place] 100[address]83 Program Planner: David Montez MD Neutrophil (Seg) 72 % High 36-65 [facility] Comment on above: Performed By: #### R ANNE MARIE, IPF, CDP #### [facility] [address] [place], [place] 6432683 Program Planner: David Montez MD NRBC Automated 0.0 per 100 WBC Normal 0.0 [facility] Comment on above: Performed By: #### Rick KENNEY IPF, CDP #### [facility] [address] [place], [place] [address] Program Planner: David Montez MD Platelet mean volume (Bld) [Entitic vol] 8.9 fL Normal 8.1-13.5 [facility] Comment on above: Performed By: #### Rick KENNEY IPF, CDP #### [facility] [address] [place], [place] [id number] Program Planner: David Montez MD Platelets (Bld) [#/Vol] 191 10*3/uL Normal 138-453 [facility] Comment on above: Performed By: #### Rick KENNEY IPF, CDP #### [facility] [address] [place], [facility] Program Planner: David Montez MD RBC (Bld) [#/Vol] 2.95 10*6/uL Low 4.21-5.77 [facility] Comment on above: Performed By: #### R ANNE MARIE IPF, CDP #### [facility] [address] [place], [place] [phone] Program Planner: David Montez MD WBC (Bld) [#/Vol] 7.1 10*3/uL Normal 3.5-11.3 [facility] Comment on above: Performed By: #### R YULIYA KENNEY, CDP #### [facility] [address] [place] [address] Program Planner: David Montez MD EKG Rhythm Stripon [address] [facility] LAB [facility] Gastrointestinal Panel, Mole cularon 06-23-2022 Campylobacter sp DNA POLO+probe Nom (Unsp spec) NEGATIVE: No Campylobacter spp. (jejuni or coli) DNA Detected [facility] E. coli enterotoxigenic eltA+estB genes POLO+probe Ql (Stl) NEGATIVE: No Enterotoxigenic E. coli (ETEC) Heat-labile and heat-stable (LT/ST) DNA Detected [facility] P. shigelloides DNA POLO+probe Ql (Stl) Negative [facility] Salmonella sp DNA POLO+probe Ql (Unsp spec) Negative [facility] Shiga toxin stx gene POLO+probe Nom (Unsp spec) Negative [facility] Shigella sp DNA POLO+probe Ql (Unsp spec) Negative [facility] Specimen Description .FECES [facility] V. cholerae+parahaemolyti cus rfbL+trkH+tnaA genes POLO+probe Ql (Stl) NEGATIVE: No Vibrio (V. vulnificus, V, parahaemolyticus and V. cholerae) DNA Detected [facility] Y. enterocolitica recN gene POLO+probe Ql (Stl) Negative [facility] Stool PCR [place] 06-24-19 23 Campylobacter sp PCR NEGATIVE: No Campylobacter spp. (jejuni or coli) DNA Detected Normal [facility] Comment on above: Performed By: #### R YULIYA KENNEY, CDP #### [facility] [address] [place] [address] Program Planner: David Montez MD E coli enterotox PCR NEGATIVE: No Enterotoxigenic E. coli (ETEC) Heat-labile and heat-stable (LT/ST) [facility] Comment on above: Result Comment: DNA Detected Performed By: #### R EJEC, IPF, CDP #### [facility] [address] [place] [address] Program Planner: David Montez MD Plesiomonas sp PCR Negative [facility] Comment on above: Performed By: #### R RADHAEC, IPF, CDP #### [facility] [address] [place] [address] Program Planner: David Montez MD Salmonella sp PCR Negative Normal [facility] Comment on above: Performed By: #### R ANNE MARIE, IPF, CDP #### [facility] [address] [place] [address] Program Planner: David Montez MD Shigatoxin gene PCR Negative Normal STX[facility] Comment on above: Performed By: #### R ANNE MARIE, IPF, CDP #### [facility] [address] [place] [address] Program Planner: David Montez MD Shigella sp PCR Negative Normal [facility] Comment on above: Performed By: #### R ANNE MARIE, IPF, CDP #### [facility] [address] [place] [address] Program Planner: David Montez MD Vibrio sp PCR NEGATIVE: No Vibrio (V. vulnificus, V, parahaemolyticus and V. cholerae) DNA Normal [facility] Comment on above: Result Comment: Dete cted Performed By: #### R RADHAEC, IPF, CDP #### [facility] [address] [place] [address] Program Planner: David Montez MD Yersinia gene PCR Negative [facility] Comment on above: Performed By: #### R RADHAEC, IPF, CDP #### [facility] [address] [place] [address] Program Planner: David Montez MD XR ABDOMEN (KUB) (SINGLE [...] Mor Louis MD 06/23/22 Final result Normal [facility] Persistent dilated loops of small bowel, compatible with known small bowel obstruction. Enteric contrast is seen within the rectum. [facility] CON[facility] EXAMINATION: ONE SUPINE XRAY VIEW(S) [...] contours: Normal. Bones: No acute osseous findings. [facility] Mor Louis MD - 06/23/2022 EXAMINATION: [...] Enteric contrast is seen within the rectum. [facility]: Radiology Study observation (narrative) [facility]: XR ABDOMEN (KUB) (SINGLE AP VIEW)Ordered By: Mor Louis on 06-23-2022 [facility]: XR ABDOMEN FOR NG/OG/NE TUBE PLACEMENTon [...] Kevin Ayers MD 06/23/22 Final result Normal [facility] Enteric device is well within the stomach. [facility] CONSOL[facility] EXAMINATION: ONE SUPINE XRAY VIEW(S) [...] gas-filled loops mildly dilated small bowel redemonstrated. [facility] CONSOLIDATED Kevin Ayers MD [...] Enteric device is well within the stomach. [facility] [employer] Work Phone: Radiology Study observation (narrative) [facility] Work Phone: XR ABDOMEN FOR NG/OG/NE TUBE PLACEMENTOrdered By: Kevin Ayers on 06-23-2022 [facility] Work Phone: CBC auto differentialon 06-04 Absolute Eos # 0.46 High [place] [facility] Absolute Immature Granulocyte [facility] Absolute Lymph # 1.65 [facility] Absolute Prowers # 0.58 [facility] Basophils (Bld) [#/Vol] 0.05 10*3/uL [facility] Basophils/100 WBC (Bld) 1 % 0 - 2 % [facility] Eosinophils/100 WBC (Bld) 6 % High 1 - 4 % [facility] Hematocrit (Bld) [Volume fraction] 33.8 % Low 40.7 - 50.3 % [facility] Hemoglobin (Bld) [Mass/Vol] 11.1 g/dL Low 13.0 - 17.0 g/dL [facility] Immature granulocytes/100 WBC (Bld) 0 % 0 [facility] Interpretation and review of laboratory results Abnormal [facility] Lymphocytes/100 WBC (Bld) 22 % Low 24 - 43 % [facility] MCH (RBC) [Entitic mass] 33.0 pg 25.2 - 33.5 pg [facility] MCHC (RBC) [Mass/Vol] 32.8 g/dL 28.4 - 34.8 g/dL [facility] MCV (RBC) [Entitic vol] 100.6 fL 82.6 - 102.9 fL [facility] Monocytes/100 WBC (Bld) 8 % 3 - 12 % [facility] NRBC Automated 0.0 0.0 per 100 WBC [facility] Platelet distribution width (Bld) [Ratio] 13.1 % 11.8 - 14.4 % [facility] Platelet mean volume (Bld) [Entitic vol] 8.9 fL 8.1 - 13.5 fL [facility] Platelets (Bld) [#/Vol] 248 10*3/uL [facility] RBC (Bld) [#/Vol] 3.36 10*6/uL Low 4.21 - 5.7 7 m/uL [facility] Segmented neutrophils/100 WBC (Bld) 63 % 36 - 65 % [facility] Segs Absolute 4.77 [facility] WBC (Bld) [#/Vol] 7.5 10*3/uL [facility] CBC with Diffon 06-22-2022 Abs. Basophil 0.05 k/uL Normal 0.00-0.20 [facility] Comment on above: Performed By: #### YULIYA COUGHLIN, CDP #### [facility] [address] [place] [address] [place] [address] Program Planner: David Montez MD Abs.Imm.Granulocyte <0.03 Normal 0.00-0.30 [facility] Comment on above: Performed By: #### YULIYA COUGHLIN, CDP #### [address] [place] [address] Program Planner: David Montez MD Abs.Neutrophil (Seg) 4.77 k/uL Normal 1.50-8.10 [facility] Comment on above: Performed By: #### YULIYA COUGHLIN, CDP #### [address] [place] [address] Program Planner: David Montez MD Basophils/100 WBC (Bld) 1 % Normal 0-2 [facility] Comment on above: Performed By: #### YULIYA COUGHLIN, CDP #### [address] [place], [place] [id number] Program Planner: David Montez MD Eosinophils (Bld) [#/Vol] 0.46 10*3/uL High 0.00-0.44 [facility] Comment on above: Performed By: #### R YULIYA KENNEY, CDP #### [address] [place], [place] [phone] Program Planner: David Montez MD Eosinophils/100 WBC (Bld) 6 % High 1-4 [facility] Comment on above: Performed By: #### R YULIYA KENNEY, CDP #### [address] [place], [facility]83 Program Planner: David Montez MD Erythrocyte distribution width (RBC) [Ratio] 13.1 % Normal 11.8-14.4 [facility] Comment on above: Performed By: #### YULIYA COUGHLIN, CDP #### [address] [place], [facility] Program Planner: David Montez MD Hematocrit (Bld) [Volume fraction] 33.8 % Low 40.7-50.3 [facility] Comment on above: Performed By: #### R YULIYA KENNEY, CDP #### [address] [place], [place] 136[address]183 Program Planner: David Montez MD Hemoglobin (Bld) [Mass/Vol] 11.1 g/dL Low 13.0-17.0 [facility] Comment on above: Performed By: #### R YULIYA KENNEY, CDP #### [address] [place] [address] Program Planner: David Montez MD Immature granulocytes/100 WBC (Bld) 0 % Normal 0 [facility] Comment on above: Performed By: #### R YULIYA KENNEY, CDP #### [address] [place] [id number] Program Planner: David Montez MD Lymphocytes (Bld) [#/Vol] 1.65 10*3/uL Normal 1.10-3.70 [facility] Comment on above: Performed By: #### YULIYA COUGHLIN, CDP #### [facility] [address] [place] [address] Dr[place] [address] Program Planner: David Montez MD Lymphocytes/100 WBC (Bld) 22 % Low 24-43 [facility] Comment on above: Performed By: #### YULIYA COUGHLIN, CDP #### [facility] [address] [place] [address] Program Planner: Daivd Montez MD MCH (RBC) [Entitic mass] 33.0 pg Normal 25.2-33.5 [facility] Comment on above: Performed By: #### YULIYA COUGHLIN, CDP #### [address] [place] [address] Program Planner: David Montez MD MCHC (RBC) [Mass/Vol] 32.8 g/dL Normal 28.4-34.[address] [facility] Comment on above: Performed By: #### YULIYA COUGHLIN, CDP #### [address] [place] [address] Program Planner: David Montez MD MCV (RBC) [Entitic vol] 100.6 fL Normal 82.6-102.9 [facility] Comment on above: Performed By: #### YULIYA COUGHLIN, CDP #### [address] [place] [address] Program Planner: David Montez MD Monocytes (Bld) [#/Vol] 0.58 10*3/uL Normal 0.10-1.20 [facility] Comment on above: Performed By: #### YULIYA COUGHLIN, CDP #### [address] [place] [address] Program Planner: David Montez MD Monocytes/100 WBC (Bld) 8 % Normal 3-12 [facility] Comment on above: Performed By: #### YULIYA COUGHLIN, CDP #### [facility] [address] [place], [place] [address]383 Program Planner: David Montez MD Neutrophil (Seg) 63 % Normal 36-65 [facility] Comment on above: Performed By: #### YULIYA COUGHLIN, CDP #### [facility] [address] [place], [place] 410[address]83 Program Planner: David Montez MD NRBC Automated 0.0 per 100 WBC Normal 0.0 [facility] Comment on above: Performed By: #### YULIYA COUGHLIN, CDP #### [facility] [address] [place], [facility] Program Planner: David Montez MD Platelet mean volume (Bld) [Entitic vol] 8.9 fL Normal 8.1-13.5 [facility] Comment on above: Performed By: #### YULIYA COUGHLIN, CDP #### [address] [place], [place] [phone] Program Planner: David Montez MD Platelets (Bld) [#/Vol] 248 10*3/uL Normal 138-453 [facility] Comment on above: Performed By: #### YULIYA COUGHLIN, CDP #### [facility] [address] [place] [address] Program Planner: David Montez MD RBC (Bld) [#/Vol] 3.36 10*6/uL Low 4.21-5.77 [facility] Comment on above: Performed By: #### YULIYA COUGHLIN, CDP #### [facility] [address] [place], [place] [address]83 Program Planner: David Montez MD WBC (Bld) [#/Vol] 7.5 10*3/uL Normal 3.5-11.3 [facility] Comment on above: Performed By: #### R EJEC, IPF, CDP #### [facility] [address] [place] [address] Program Planner: David Montez MD EKG Rhythm Stripon [facility] [place] SMALL BOWEL FOLLOW THROUG H ONLYon [...] Daquan Mcdermott MD 06/22/22 Final result Normal [facility] Minimal contrast emptying from the stomach after 3 hours of imaging and diffuse small and large bowel distension, favoring ileus versus partial obstructing process. As such, follow-up abdominal radiograph in 4 hours (approximate 8 p.m.) is suggested. [facility] RIS CONSOLIDATED EXAMINATION: SMALL BOWEL FOLLOW THROUGH [...] imaging. Small and large bowel again demonstrated. [facility] Daquan Cartagena MD - 06/22/2022 EXAMINATION: SMALL BOWEL FOLLOW [...] 4 hours (approximate 8 p.m.) is suggested. [employer] Phone: Stem Phone: Radiology Study observation (narrative) [employer] Phone: XR ABDOMEN (KUB) (SINGLE AP VIEW)on [...] Daquan Mcdermott MD 06/22/22 Final result Normal [facility] 1. NG tube remains in place. Persistent small bowel distension and nondilated colonic gas. 2. Distended bladder with contrast. [facility] RIS CONSOLIDATED EXAMINATION: ONE SUPINE XRAY VIEW(S) [...] well. The bladder is distended with contrast. [facility] Daquan Mcdermott MD - 06/22/2022 EXAMINATION: [...] colonic gas. 2. Distended bladder with contrast. [facility] Work Phone: Radiology Study observation (narrative) [facility] [employer] Work Phone: XR ABDOMEN (KUB) (SINGLE AP VIEW)Ordered By: Daquan Mcdermott on 06-22-2022 [facility] [employer] Work Phone: CBC with Auto Differentialon 06-21-2022 Absolute Eos # 0.48 High [place] [facility] [employer] Absolute Immature Granulocyte 0.00 [facility] [employer] Absolute Lymph # 1.68 [facility] Absolute Prowers # 0.84 [facility] [employer] Basophils (Bld) [#/Vol] 0.00 10*3/uL [facility] [employer] Basophils/100 WBC (Bld) 0 % 0 - 2 % [facility] [employer] Eosinophils/100 WBC (Bld) 4 % 1 - 4 % [facility] [employer] Hematocrit (Bld) [Volume fraction] 38.8 % Low 40.7 - 50.3 % [facility] Hemoglobin (Bld) [Mass/Vol] 12.9 g/dL Low 13.0 - 17.0 g/dL [facility] [employer] Immature granulocytes/100 WBC (Bld) 0 % 0 [facility] [employer] Interpretation and review of laboratory results Abnormal [facility] Lymphocytes/100 WBC (Bld) 14 % Low 24 - 43 % [facility] [employer] MCH (RBC) [Entitic mass] 33.2 pg 25.2 - 33.5 pg [facility] MCHC (RBC) [Mass/Vol] 33.2 g/dL 28.4 - 34.8 g/dL [facility] MCV (RBC) [Entitic vol] 99.7 fL 82.6 - 102.9 fL [facility] [employer] Monocytes/100 WBC (Bld) 7 % 3 - 12 % [facility] [employer] Morphology Harsh (Bld) [Interp] Platelet scan shows Normal Platelets [facility] Hyper9 NRBC Automated 0.0 0.0 per 100 WBC [facility] Platelet distribution width (Bld) [Ratio] 13.1 % 11.8 - 14.4 % [facility] Platelets (Bld) [#/Vol] See Reflexed IPF Result [facility] RBC (Bld) [#/Vol] 3.89 10*6/uL Low 4.21 - 5.7 7 m/uL [facility] Segmented neutrophils/100 WBC (Bld) 75 % High 36 - 65 % [facility] Segs Absolute 9.00 High [facility] WBC (Bld) [#/Vol] 12.0 10*3/uL High [facility] CBC with Diffon 06-21-2022 Abs. Basophil 0.00 k/uL Normal 0.0-0.2 [facility] Comment on above: Performed By: #### YULIYA COUGHLIN, CDP #### [facility] [address] [place] [address] [place] [address] Program Planner: David Montez MD Abs.Imm.Granulocyte 0.00 k/uL Normal 0.00-0.30 [facility] Comment on above: Performed By: #### YULIYA COUGHLIN, CDP #### [address] [place] [address] Program Planner: David Montez MD Abs.Neutrophil (Seg) 9.00 k/uL High 1.50-8.10 [facility] Comment on above: Performed By: #### YULIYA COUGHLIN, CDP #### [facility] [address] [place] [address] Program Planner: David Montez MD Basophils/100 WBC (Bld) 0 % Normal 0-2 [facility] Comment on above: Performed By: #### YULIYA COUGHLIN, CDP #### [facility] [address] [place] [address] Program Planner: David Montez MD Eosinophils (Bld) [#/Vol] 0.48 10*3/uL High 0.00-0.44 [facility] Comment on above: Performed By: #### YULIYA COUGHLIN, CDP #### [facility] [address] [place] [address] Dr. [place], [place] [id number] Program Planner: David Montez MD Eosinophils/100 WBC (Bld) 4 % Normal 1-4 [facility] Comment on above: Performed By: #### YULIYA COUGHLIN, CDP #### [address] [place], [place] [id number] Program Planner: David Montez MD Immature granulocytes/100 WBC (Bld) 0 % Normal 0 [facility] Comment on above: Performed By: #### YULIYA COUGHLIN, CDP #### [address] [place], [place] [id number] Program Planner: David Montez MD Lymphocytes (Bld) [#/Vol] 1.68 10*3/uL Normal 1.10-3.70 [facility] Comment on above: Performed By: #### YULIYA COUGHLIN, CDP #### [address] [place], [place] [id number] Program Planner: David Montez MD Lymphocytes/100 WBC (Bld) 14 % Low 24-43 [facility] Comment on above: Performed By: #### YULIYA COUGHLIN, CDP #### [address] [place], [place] [id number] Program Planner: David Montez MD Monocytes (Bld) [#/Vol] 0.84 10*3/uL Normal 0.10-1.20 [facility] Comment on above: Performed By: #### YULIYA COUGHLIN, CDP #### [facility] [address] [place] [address] Program Planner: David Montez MD Monocytes/100 WBC (Bld) 7 % Normal 3-12 [facility] Comment on above: Performed By: #### YULIYA COUGHLIN, CDP #### [address] [place], [facility]83 Program Planner: David Montez MD Morphology Harsh (Bld) [Interp] Platelet scan shows Normal Platelets Normal [facility] Comment on above: Performed By: #### YULIYA COUGHLIN, CDP #### [address] [place], [facility]83 Program Planner: David Montez MD Neutrophil (Seg) 75 % High 36-65 [facility] Comment on above: Performed By: #### YULIYA COUGHLIN, CDP #### [address] [place], [facility]83 Program Planner: David Montez MD Erythrocyte distribution width (RBC) [Ratio] 13.1 % Normal 11.8-14.4 [facility] Comment on above: Performed By: #### YULIYA COUGHLIN, CDP #### [address] [place], [place] [address] Program Planner: David Montez MD Hematocrit (d) [Volume fraction] 38.8 % Low 40.7-50.3 [facility] Comment on above: Performed By: #### YULIYA COUGHLIN, CDP #### [address] [place], [place] [address] Program Planner: David Montez MD Hemoglobin (Bld) [Mass/Vol] 12.9 g/dL Low 13.0-17.0 [facility] Comment on above: Performed By: #### YULIYA COUGHLIN, CDP #### [address] [place], [facility]83 Program Planner: David Montez MD MCH (RBC) [Entitic mass] 33.2 pg Normal 25.2-33.5 [facility] Comment on above: Performed By: #### R EJEC, IPF, CDP #### [facility] [address] [place], [place] [address]101[address] Program Planner: David Montez MD MCHC (RBC) [Mass/Vol] 33.2 g/dL Normal 28.4-34.[address] [facility] Comment on above: Performed By: #### R ANNE MARIE IPF, CDP #### [address] [place], [place] [id number] Program Planner: David Montez MD MCV (RBC) [Entitic vol] 99.7 fL Normal 82.6-102.9 [facility] Comment on above: Performed By: #### R ANNE MARIE IPF, CDP #### [address] [place], [place] 3797283 Program Planner: David Montez MD NRBC Automated 0.0 per 100 WBC Normal 0.0 [facility] Comment on above: Performed By: #### R ANNE MARIE IPF, CDP #### [address] [place], [place] 0953683 Program Planner: David Montez MD Platelet Count See Reflexed IPF Result Normal 138-453 [facility] Comment on above: Performed By: #### R ANNE MARIE IPF, CDP #### [address] [place], [place] 8007583 Program Planner: David Montez MD RBC (Bld) [#/Vol] 3.89 10*6/uL Low 4.21-5.77 [facility] Comment on above: Performed By: #### R ANNEM ARIE IPF, CDP #### [address] [place], [place] [id number] Program Planner: David Montez MD WBC (Bld) [#/Vol] 12.0 10*3/uL High 3.5-11.3 [facility] Comment on above: Performed By: #### R ANNE MARIE IPF, CDP #### [facility] [address] [place] [address] Program Planner: David Montez MD CT ABDOMEN PELVIS W [...] Melchor Mota MD 06/21/22 Final result Normal [facility] CT ABDOMEN PELVIS W IV CONTR AST Additional Contrast? Noneon 06-21-2022 Small-bowel obstruction with transition point possibly in the ileum RECOMMENDATIONS: Surgical consultation [facility] RIS CONSOLIDATED EXAMINATION: CT OF THE ABDOMEN [...] calcifications are seen compatible with atherosclerotic disease. [facility] Melchor Mota MD - 06/21/2022 [...] possibly in the ileum RECOMMENDATIONS: Surgical consultation [facility] [employer] Phone: Radiology Study observation (narrative) [facility] Via Phone: CT ABDOMEN PELVIS W IV CONTR AST Additional Contrast? NoneOrdered By: Melchor Mota on 06-21-2022 [facility] [employer] Phone: Comp Metabolic Profon 2022 Albumin [Mass/Vol] 4.3 g/dL Normal 3.5-5.2 [facility] Comment on above: Performed By: #### C DP, BMPX #### [facility] [address] [place] [address] [place] [address] Program Planner: David Montez MD Albumin/Glob Ratio 1.2 Normal 1.0-2.5 [facility] Comment on above: Performed By: #### C DP, BMPX #### [facility] [address] [place] [address] Program Planner: David Montez MD Alkaline Phos 131 U/L High 40-129 [facility] Comment on above: Performed By: #### C DP, BMPX #### [facility] [address] [place] [address] Program Planner: David Motnez MD ALT [Catalytic activity/Vol] 19 U/L Normal 5-41 [facility] Comment on above: Performed By: #### C DP, BMPX #### [facility] [address] [place], [place] 0582483 Program Planner: David Montez MD Anion gap [Moles/Vol] 11 mmol/L Normal 9-[address] [facility] Comment on above: Performed By: #### C DP, BMPX #### [facility] [address] [place], [place] 4863683 Program Planner: David Montez MD AST [Catalytic activity/Vol] 19 U/L Normal <40 [facility] Comment on above: Performed By: #### C DP, BMPX #### [facility] [address] [place], [place] 3299583 Program Planner: David Montez MD Bilirubin [Mass/Vol] 0.3 mg/dL Normal 0.3-1.2 [facility] Comment on above: Performed By: #### C DP, BMPX #### [facility] [address] [place], [place] 7318783 Program Planner: David Montez MD BUN/CRE Ratio 18 Normal 9-20 [facility] Comment on above: Performed By: #### C DP, BMPX #### [facility] [address] [place], [place] 0632683 Program Planner: David Montez MD Calcium [Mass/Vol] 10.0 mg/dL Normal 8.6-10.4 [facility] Comment on above: Performed By: #### C DP, BMPX #### [facility] [address] [place], [place] 893[address]83 Program Planner: David Montez MD Chloride [Moles/Vol] 99 mmol/L Normal 98-107 [facility] Comment on above: Performed By: #### C DP, BMPX #### [facility] [address] [place] [address] Program Planner: David Montez MD CO2 [Moles/Vol] 28 mmol/L Normal 20-31 [facility] Comment on above: Performed By: #### C DP, BMPX #### [facility] [address] [place] [address] Program Planner: David Montez MD Creatinine [Mass/Vol] 1.04 mg/dL Normal 0.70-1.[address] [facility] Comment on above: Performed By: #### C DP, BMPX #### [facility] [address] [place] [address] Program Planner: David Montez MD GFR/1.73 sq M.predicted among non-blacks MDRD (S/P/Bld) [Vol rate/Area] mL/min/{1.73_m2} Normal >60 [facility] Comment on above: Result Comment: These [...] Performed By: #### C DP, BMPX #### [facility] [address] [place] [address] Program Planner: David Montez MD Glucose [Mass/Vol] 105 mg/dL High 70-99 [facility] Comment on above: Performed By: #### C DP, BMPX #### [facility] [address] [place] [address] Program Planner: David Montez MD Potassium [Moles/Vol] 3.8 mmol/L Normal 3.7-5.[address] [facility] Comment on above: Performed By: #### C DP, BMPX #### [facility] [address] [place] [address] Program Planner: David Montez MD Protein [Mass/Vol] 7.8 g/dL Normal 6.4-8.3 [facility] Comment on above: Performed By: #### C DP, BMPX #### [facility] [address] [place] [address] Program Planner: David Montez MD Sodium [Moles/Vol] 138 mmol/L Normal 135-144 [facility] Comment on above: Performed By: #### C DP, BMPX #### [facility] [address] [place] [address] Program Planner: David Montez MD Urea nitrogen [Mass/Vol] 19 mg/dL Normal 8-23 [facility] Comment on above: Performed By: #### C DP, BMPX #### [facility] [address] [place] [address] Program Planner: David Montez MD Comprehensive Metabolic Pane [facility] 06-21-2022 Albumin [Mass/Vol] 4.3 g/dL 3.5 - 5.2 g/dL [facility] Albumin/Globulin [Mass ratio] 1.2 {ratio} 1.0 - 2.5 [facility] ALP [Catalytic activity/Vol] 131 U/L High 40 - 129 U/L [facility] ALT [Catalytic activity/Vol] 19 U/L 5 - 41 U/L [facility] Anion gap [Moles/Vol] 11 mmol/L 9 - 17 mmol/L [facility] AST [Catalytic activity/Vol] 19 U/L NINF - 40 U/L [facility] Bilirubin [Mass/Vol] 0.3 mg/dL 0.3 - 1 .2 mg/dL [facility] Calcium [Mass/Vol] 10.0 mg/dL 8.6 - 10. 4 mg/dL [facility] Chloride [Moles/Vol] 99 mmol/L 98 - 10 7 mmol/L [facility] CO2 [Moles/Vol] 28 mmol/L 20 - 31 mmol/L [facility] Creatinine [Mass/Vol] 1.04 mg/dL 0.70 - 1.20 mg/dL [facility] GFR/1.73 sq M.predicted MDRD (S/P/Bld) [Vol rate/Area] - PINF [facility] Comment on above: These results are not [...] 105 mg/dL High 70 - 99 mg/dL [facility] Interpretation and review of laboratory results Abnormal [facility] Potassium [Moles/Vol] 3.8 mmol/L 3.7 - 5.3 mmol/L [facility] Protein [Mass/Vol] 7.8 g/dL 6.4 - 8.3 g/dL [facility] Sodium [Moles/Vol] 138 mmol/L 135 - 144 mmol/L [facility] Urea nitrogen [Mass/Vol] 19 mg/dL 8 - 23 mg/dL [facility] Urea nitrogen/Creatinine (Bld) [Mass ratio] 18 9 - 20 [facility] Immature Platelet Fractionon 06-21-2022 Platelet, Fluorescence [address] [facility] Platelet, Immature Fraction 1.2 % 1.1 - 10.3 % [facility] Lactic Acidon 06-21-2022 Lactate [Moles/Vol] 1.3 mmol/L Normal 0.5-2.2 [facility] Comment on above: Performed By: #### R EJEC, IPF, CDP #### [facility] [address] [place] [address] Program Planner: David Montez MD Lactate (P simon) [Moles/Vol] 1.3 mmol/L 0.5 - 2.2 mmol/L [facility] Lipaseon 06-21-2022 Lipase [Catalytic activity/Vol] 27 U/L Normal 13-60 [facility] Comment on above: Performed By: #### C DP, BMPX #### [facility] [address] [place], [place] [id number] Program Planner: David Montez MD Lipase [Catalytic activity/Vol] 27 U/L 13 - 60 U/L [facility] No Panel Informationon 06-21 [facility] PLT, Immature Fract.on 06-21 Platelet, Fluoresc. 400 k/uL Normal 138-453 [facility] Comment on above: Performed By: #### YULIYA COUGHLIN, CDP #### [facility] [address] [place] [address] Program Planner: David Montez MD PLT, Immature Fract. 1.2 % Normal 1.1-10.3 [facility] Comment on above: Performed By: #### YULIYA COUGHLIN, CDP #### [facility] [address] [place], [place] [id number] Program Planner: David Montez MD SPECIMEN REJECTIONon 023 Ordered Test CP,LIP [facility] Reason for Rejection Unable to perform testing: Specimen hemolyzed. [facility] Specimen source Nom (Unsp spec) .BLOOD [facility] Specimen Rejectionon 023 Reason for rejection Unable to perform testing: Specimen hemolyzed. Normal [facility] Comment on above: Performed By: #### YULIYA COUGHLIN, CDP #### [facility] [address] [place] [address] Program Planner: David Montez MD Source of sample .BLOOD [facility] Comment on above: Performed By: #### R EJEC, IPF, CDP #### [facility] [address] [place], [place] [address]83 Program Planner: David Montez MD Test ordered CP,LIP Normal [facility] Comment on above: Performed By: #### R ANNE MARIE, IPF, CDP #### [facility] [address] [place], [place] 7707383 Program Planner: David Montez MD Stool PCR [place] 06-22-19 Specimen Description .FECES Normal [facility] Comment on above: Performed By: #### R ANNE MARIE, YULIYA, CDP #### [facility] [address] [place] [address] Program Planner: David Montez MD XR ABDOMEN FOR NG/OG/NE [...] by: Angel Gaston MD 06/21/22 Final result [facility] The OG/NG tube has been placed [...] tube has been placed in good position. [facility]: Radiology Study observation (narrative) [facility] Via Phone: XR ABDOMEN FOR NG/OG/NE TUBE PLACEMENTOrdered By: Angel Gaston on 06-21-2022 [facility] [employer] Phone: Basic Metab w/rfx MGon 06-15 Anion gap [Moles/Vol] 8 mmol/L Low 9-[address] [facility] Comment on above: Performed By: #### R YULIYA KENNEY, CDP #### [facility] [address] [place] [address] Program Planner: David Montez MD BUN/CRE Ratio 9 Normal 9-20 [facility] Comment on above: Performed By: #### R YULIYA KENNEY, CDP #### [facility] [address] [place] [address] Program Planner: Davdi Montez MD Calcium [Mass/Vol] 8.9 mg/dL Normal 8.6-10.4 [facility] Comment on above: Performed By: #### R YULIYA KENNEY, CDP #### [facility] [address] [place] [address] Program Planner: David Montez MD Chloride [Moles/Vol] 110 mmol/L High 98-107 [facility] Comment on above: Performed By: #### YULIYA COUGHLIN, CDP #### [facility] [address] [place] [address] Program Planner: David Montez MD CO2 [Moles/Vol] 22 mmol/L Normal 20-31 [facility] Comment on above: Performed By: #### YULIYA COUGHLIN, CDP #### [facility] [address] [place] [address] Program Planner: David Montez MD Creatinine [Mass/Vol] 0.93 mg/dL Normal 0.70-1.[address] [facility] Comment on above: Performed By: #### YULIYA COUGHLIN, CDP #### [facility] [address] [place] [address] Program Planner: David Montez MD GFR/1.73 sq M.predicted among non-blacks MDRD (S/P/Bld) [Vol rate/Area] mL/min/{1.73_m2} Normal >60 [facility] Comment on above: Result Comment: These [...] Performed By: #### YULIYA COUGHLIN, CDP #### [facility] [address] [place] [address] Program Planner: David Montez MD Glucose [Mass/Vol] 83 mg/dL Normal 70-99 [facility] Comment on above: Performed By: #### YULIYA COUGHLIN, CDP #### [facility] [address] [place] [address]83 Program Planner: David Montez MD Potassium [Moles/Vol] 4.2 mmol/L Normal 3.7-5.[address] [facility] Comment on above: Performed By: #### R ANNE MARIE IPF, CDP #### [facility] [address] [place] [address] [place] [address] Program Planner: David Montez MD Sodium [Moles/Vol] 140 mmol/L Normal 135-144 [facility] Comment on above: Performed By: #### Rick KENNEY IPF, CDP #### [facility] [address] [place] [address] Program Planner: David Montez MD Urea nitrogen [Mass/Vol] 8 mg/dL Normal 8-23 [facility] Comment on above: Performed By: #### YULIYA COUGHLIN, CDP #### [facility] [address] [place] [address] Dr. [place], [facility]83 Program Planner: David Montez MD CBC with Diffon 06-15-2022 Abs. Basophil 0.04 k/uL Normal 0.00-0.20 [facility] Comment on above: Performed By: #### Rick KENNEY IPF, CDP #### [facility] [address] [place] [address] Dr. [place], [facility]83 Program Planner: David Montez MD Abs.Imm.Granulocyte <0.03 Normal 0.00-0.30 [facility] Comment on above: Performed By: #### Rick KENNEY IPF, CDP #### [facility] [address] [place], [place] [address]83 Program Planner: David Montez MD Abs.Neutrophil (Seg) 5.76 k/uL Normal 1.50-8.10 [facility] Comment on above: Performed By: #### Rick KENNEY IPF, CDP #### [facility] [address] [place] [address] Dr. [place], [facility]83 Program Planner: David Montez MD Basophils/100 WBC (Bld) 1 % Normal 0-2 [facility] Comment on above: Performed By: #### YULIYA COUGHLIN, CDP #### [facility] [address] [place] [address] Program Planner: David Montez MD Eosinophils (Bld) [#/Vol] 0.19 10*3/uL Normal 0.00-0.44 [facility] Comment on above: Performed By: #### R YULIYA KENNEY, CDP #### [facility] [address] [place] [address] Program Planner: David Montez MD Eosinophils/100 WBC (Bld) 2 % Normal 1-4 [facility] Comment on above: Performed By: #### YULIYA COUGHLIN, CDP #### [address] [place] [address] Program Planner: David Montez MD Erythrocyte distribution width (RBC) [Ratio] 12.6 % Normal 11.8-14.4 [facility] Comment on above: Performed By: #### YULIYA COUGHLIN, CDP #### [address] [place], [place] [address]2583 Program Planner: David Montez MD Hematocrit (Bld) [Volume fraction] 32.3 % Low 40.7-50.3 [facility] Comment on above: Performed By: #### R YULIYA KENNEY, CDP #### [address] [place], [place] [address] Program Planner: David Montez MD Hemoglobin (Bld) [Mass/Vol] 10.7 g/dL Low 13.0-17.0 [facility] Comment on above: Performed By: #### YULIYA COUGHLIN, CDP #### [address] [place] [address] Program Planner: David Montez MD Immature granulocytes/100 WBC (Bld) 0 % Normal 0 [facility] Comment on above: Performed By: #### YULIYA COUGHLIN, CDP #### [facility] [address] [place], [place] [address]83 Program Planner: David Montez MD Lymphocytes (Bld) [#/Vol] 1.61 10*3/uL Normal 1.10-3.70 [facility] Comment on above: Performed By: #### YULIYA COUGHLIN, CDP #### [facility] [address] [place] [address] Program Planner: David Montez MD Lymphocytes/100 WBC (Bld) 19 % Low 24-43 [facility] Comment on above: Performed By: #### YULIYA COUGHLIN, CDP #### [address] [place], [facility]83 Program Planner: David Montez MD MCH (RBC) [Entitic mass] 32.9 pg Normal 25.2-33.5 [facility] Comment on above: Performed By: #### YULIYA COUGHLIN, CDP #### [address] [place], [place] 629[address]83 Program Planner: David Montez MD MCHC (RBC) [Mass/Vol] 33.1 g/dL Normal 28.4-34.[address] [facility] Comment on above: Performed By: #### YULIYA COUGHLIN, CDP #### [address] [place], [place] [address]18[address]83 Program Planner: David Montez MD MCV (RBC) [Entitic vol] 99.4 fL Normal 82.6-102.9 [facility] Comment on above: Performed By: #### YULIYA COUGHLIN, CDP #### [facility] [address] [place] [address] Program Planner: David Montez MD Monocytes (Bld) [#/Vol] 0.69 10*3/uL Normal 0.10-1.20 [facility] Comment on above: Performed By: #### YULIYA COUGHLIN, CDP #### [facility] [address] [place], [place] [address]34[address]83 Program Planner: David Montez MD Monocytes/100 WBC (Bld) 8 % Normal 3-12 [facility] Comment on above: Performed By: #### YULIYA COUGHLIN, CDP #### [facility] [address] [place], [place] 29[address]83 Program Planner: David Montez MD Neutrophil (Seg) 70 % High 36-65 [facility] Comment on above: Performed By: #### YULIYA COUGHLIN, CDP #### [facility] [address] [place], [place] [address]102183 Program Planner: David Montez MD NRBC Automated 0.0 per 100 WBC Normal 0.0 [facility] Comment on above: Performed By: #### YULIYA COUGHLIN, CDP #### [facility] [address] [place], [place] [id number] Program Planner: David Montez MD Platelet mean volume (Bld) [Entitic vol] 9.0 fL Normal 8.1-13.5 [facility] Comment on above: Performed By: #### YULIYA COUGHLIN, CDP #### [facility] [address] [place] [address] Program Planner: David Montez MD Platelets (Bld) [#/Vol] 236 10*3/uL Normal 138-453 [facility] Comment on above: Performed By: #### YULIYA COUGHLIN, CDP #### [facility] [address] [place] [address] Program Planner: David Montez MD RBC (Bld) [#/Vol] 3.25 10*6/uL Low 4.21-5.77 [facility] Comment on above: Performed By: #### R ANNE MARIE, IPF, CDP #### [facility] [address] [place], [place] 878[address]83 Program Planner: David Montez MD WBC (Bld) [#/Vol] 8.3 10*3/uL Normal 3.5-11.3 [facility] Comment on above: Performed By: #### R ANNE MARIE IPF, CDP #### [facility] [address] [place], [place] [id number] Program Planner: David Montez MD Basic Metab w/rfx MGon 06-14 Anion gap [Moles/Vol] 7 mmol/L Low 9-[address] [facility] Comment on above: Performed By: #### C DP, BMPX #### [address] [place], [place] [id number] Program Planner: David Montez MD BUN/CRE Ratio 11 Normal 9-20 [facility] Comment on above: Performed By: #### C DP, BMPX #### [address] [place], [place] 3148483 Program Planner: David Montez MD Calcium [Mass/Vol] 8.5 mg/dL Low 8.6-10.4 [facility] Comment on above: Performed By: #### C DP, BMPX #### [facility] [address] [place], [place] 1160083 Program Planner: David Montez MD Chloride [Moles/Vol] 106 mmol/L Normal 98-107 [facility] Comment on above: Performed By: #### C DP, BMPX #### [facility] [address] [place] [address] Program Planner: David Montez MD CO2 [Moles/Vol] 25 mmol/L Normal 20-31 [facility] Comment on above: Performed By: #### C DP, BMPX #### [facility] [address] [place] [address] Program Planner: David Montez MD Creatinine [Mass/Vol] 0.91 mg/dL Normal 0.70-1.[address] [facility] Comment on above: Performed By: #### C DP, BMPX #### [facility] [address] [place] [address] Program Planner: David Montez MD GFR/1.73 sq M.predicted among non-blacks MDRD (S/P/Bld) [Vol rate/Area] mL/min/{1.73_m2} Normal >60 [facility] Comment on above: Result Comment: These [...] Performed By: #### C DP, BMPX #### [facility] [address] [place] [address] Program Planner: David Montez MD Glucose [Mass/Vol] 85 mg/dL Normal 70-99 [facility] Comment on above: Performed By: #### C DP, BMPX #### [facility] [address] [place] [address] Program Planner: David Montez MD Potassium [Moles/Vol] 4.4 mmol/L Normal 3.7-5.[address] [facility] Comment on above: Performed By: #### C DP, BMPX #### [facility] [address] [place] [address] Program Planner: David Montez MD Sodium [Moles/Vol] 138 mmol/L Normal 135-144 [facility] Comment on above: Performed By: #### C DP, BMPX #### [facility] [address] [place], [place] 3664183 Program Planner: David Montez MD Urea nitrogen [Mass/Vol] 10 mg/dL Normal 8-23 [facility] Comment on above: Performed By: #### C DP, BMPX #### [facility] [address] [place], [place] 4249783 Program Planner: David Montez MD CBC with Diffon 06-14-2022 Abs. Basophil 0.03 k/uL Normal 0.00-0.20 [facility] Comment on above: Performed By: #### C DP, BMPX #### [address] [place], [place] [id number] Program Planner: David Montez MD Abs.Imm.Granulocyte <0.03 Normal 0.00-0.30 [facility] Comment on above: Performed By: #### C DP, BMPX #### [address] [place], [place] 4311083 Program Planner: David Montez MD Abs.Neutrophil (Seg) 4.28 k/uL Normal 1.50-8.10 [facility] Comment on above: Performed By: #### C DP, BMPX #### [address] [place], [place] 8331583 Program Planner: David Montez MD Basophils/100 WBC (Bld) 0 % Normal 0-2 [facility] Comment on above: Performed By: #### C DP, BMPX #### [facility] [address] [place], [place] 3605483 Program Planner: David Montez MD Eosinophils (Bld) [#/Vol] 0.44 10*3/uL Normal 0.00-0.44 [facility] Comment on above: Performed By: #### C DP, BMPX #### [facility] [address] [place], [place] [id number] Program Planner: David Montez MD Eosinophils/100 WBC (Bld) 6 % High 1-4 [facility] Comment on above: Performed By: #### C DP, BMPX #### [facility] [address] [place], [place] 3073883 Program Planner: David Montez MD Erythrocyte distribution width (RBC) [Ratio] 12.6 % Normal 11.8-14.4 [facility] Comment on above: Performed By: #### C DP, BMPX #### [address] [place], [place] 2525783 Program Planner: David Montez MD Hematocrit (Bld) [Volume fraction] 31.3 % Low 40.7-50.3 [facility] Comment on above: Performed By: #### C DP, BMPX #### [address] [place], [facility]83 Program Planner: David Montez MD Hemoglobin (Bld) [Mass/Vol] 10.2 g/dL Low 13.0-17.0 [facility] Comment on above: Performed By: #### C DP, BMPX #### [address] [place], [place] 7062383 Program Planner: David Montez MD Immature granulocytes/100 WBC (Bld) 0 % Normal 0 [facility] Comment on above: Performed By: #### C DP, BMPX #### [address] [place], [place] 8652683 Program Planner: David Montez MD Lymphocytes (Bld) [#/Vol] 1.62 10*3/uL Normal 1.10-3.70 [facility] Comment on above: Performed By: #### C DP, BMPX #### [address] [place] [address] Program Planner: David Montez MD Lymphocytes/100 WBC (Bld) 23 % Low 24-43 [facility] Comment on above: Performed By: #### C DP, BMPX #### [facility] [address] [place], [place] 9386783 Program Planner: David Montez MD MCH (RBC) [Entitic mass] 33.0 pg Normal 25.2-33.5 [facility] Comment on above: Performed By: #### C DP, BMPX #### [address] [place] [address] Program Planner: David Montez MD MCHC (RBC) [Mass/Vol] 32.6 g/dL Normal 28.4-34.[address] [facility] Comment on above: Performed By: #### C DP, BMPX #### [address] [place] [address] Program Planner: David Montez MD MCV (RBC) [Entitic vol] 101.3 fL Normal 82.6-102.9 [facility] Comment on above: Performed By: #### C DP, BMPX #### [address] [place] [address] Program Planner: David Montez MD Monocytes (Bld) [#/Vol] 0.54 10*3/uL Normal 0.10-1.20 [facility] Comment on above: Performed By: #### C DP, BMPX #### [address] [place] [address] Program Planner: David Montez MD Monocytes/100 WBC (Bld) 8 % Normal 3-12 [facility] Comment on above: Performed By: #### C DP, BMPX #### [address] [place] [address] Program Planner: David Montez MD Neutrophil (Seg) 63 % Normal 36-65 [facility] Comment on above: Performed By: #### C DP, BMPX #### [facility] [address] [place], [place] 6191683 Program Planner: David Montez MD NRBC Automated 0.0 per 100 WBC Normal 0.0 [facility] Comment on above: Performed By: #### C DP, BMPX #### [address] [place], [facility]83 Program Planner: David Montez MD Platelet mean volume (Bld) [Entitic vol] 9.0 fL Normal 8.1-13.5 [facility] Comment on above: Performed By: #### C DP, BMPX #### [address] [place], [facility]83 Program Planner: David Montez MD Platelets (Bld) [#/Vol] 200 10*3/uL Normal 138-453 [facility] Comment on above: Performed By: #### C DP, BMPX #### [address] [place], [place] 9682983 Program Planner: David Montez MD RBC (Bld) [#/Vol] 3.09 10*6/uL Low 4.21-5.77 [facility] Comment on above: Performed By: #### C DP, BMPX #### [address] [place], [facility]83 Program Planner: David Montez MD WBC (Bld) [#/Vol] 6.9 10*3/uL Normal 3.5-11.3 [facility] Comment on above: Performed By: #### C DP, BMPX #### [address] [place] [address] Program Planner: David Montez MD XR ABDOMEN (2 VIEWS)on [...] Toby Lofton MD 06/14/22 Final result Normal [facility] Basic Metab w/rfx MGon 06-13 Anion gap [Moles/Vol] 8 mmol/L Low 9-[address] [facility] Comment on above: Performed By: #### C DP, BMPX #### [facility] [address] [place] [address] Program Planner: David Montez MD BUN/CRE Ratio 16 Normal 9-20 [facility] Comment on above: Performed By: #### C DP, BMPX #### [facility] [address] [place] [address] Program Planner: David Montez MD Calcium [Mass/Vol] 8.9 mg/dL Normal 8.6-10.4 [facility] Comment on above: Performed By: #### C DP, BMPX #### [facility] [address] [place] [address] Program Planner: David Montez MD Chloride [Moles/Vol] 102 mmol/L Normal 98-107 [facility] Comment on above: Performed By: #### C DP, BMPX #### [facility] [address] [place] [address] Program Planner: David Montez MD CO2 [Moles/Vol] 31 mmol/L Normal 20-31 [facility] Comment on above: Performed By: #### C DP, BMPX #### [facility] [address] [place], [place] 4634783 Program Planner: David Montez MD Creatinine [Mass/Vol] 1.04 mg/dL Normal 0.70-1.[address] [facility] Comment on above: Performed By: #### C DP, BMPX #### [facility] [address] [place], [place] 3570883 Program Planner: David Montez MD GFR/1.73 sq M.predicted among non-blacks MDRD (S/P/Bld) [Vol rate/Area] mL/min/{1.73_m2} Normal >60 [facility] Comment on above: Result Comment: These [...] Performed By: #### C DP, BMPX #### [facility] [address] [place], [place] 7863783 Program Planner: David Montez MD Glucose [Mass/Vol] 92 mg/dL Normal 70-99 [facility] Comment on above: Performed By: #### C DP, BMPX #### [address] [place] [address] Program Planner: David Montez MD Potassium [Moles/Vol] 3.9 mmol/L Normal 3.7-5.[address] [facility] Comment on above: Performed By: #### C DP, BMPX #### [facility] [address] [place] [address] Program Planner: David Montez MD Sodium [Moles/Vol] 141 mmol/L Normal 135-144 [facility] Comment on above: Performed By: #### C DP, BMPX #### [facility] [address] [place] [address] Program Planner: David Montez MD Urea nitrogen [Mass/Vol] 17 mg/dL Normal 8-23 [facility] Comment on above: Performed By: #### C DP, BMPX #### [facility] [address] [place], [facility]83 Program Planner: David Montez MD CBC with Diffon 06-13-2022 Abs. Basophil 0.03 k/uL Normal 0.00-0.20 [facility] Comment on above: Performed By: #### C DP, BMPX #### [address] [place], [place] [address] Program Planner: David Montez MD Abs.Imm.Granulocyte <0.03 Normal 0.00-0.30 [facility] Comment on above: Performed By: #### C DP, BMPX #### [address] [place], [place] [address] Program Planner: David Montez MD Abs.Neutrophil (Seg) 5.42 k/uL Normal 1.50-8.10 [facility] Comment on above: Performed By: #### C DP, BMPX #### [address] [place], [facility]83 Program Planner: David Montez MD Basophils/100 WBC (Bld) 0 % Normal 0-2 [facility] Comment on above: Performed By: #### C DP, BMPX #### [address] [place], [facility]83 Program Planner: David Montez MD Eosinophils (Bld) [#/Vol] 0.44 10*3/uL Normal 0.00-0.44 [facility] Comment on above: Performed By: #### C DP, BMPX #### [facility] [address] [place], [facility]83 Program Planner: David Montez MD Eosinophils/100 WBC (Bld) 5 % High 1-4 [facility] Comment on above: Performed By: #### C DP, BMPX #### [facility] [address] [place], [place] 9566483 Program Planner: David Montez MD Erythrocyte distribution width (RBC) [Ratio] 13.2 % Normal 11.8-14.4 [facility] Comment on above: Performed By: #### C DP, BMPX #### [address] [place], [place] 2872983 Program Planner: David Montez MD Hematocrit (Bld) [Volume fraction] 32.8 % Low 40.7-50.3 [facility] Comment on above: Performed By: #### C DP, BMPX #### [address] [place], [place] 0283283 Program Planner: David Montez MD Hemoglobin (Bld) [Mass/Vol] 10.6 g/dL Low 13.0-17.0 [facility] Comment on above: Performed By: #### C DP, BMPX #### [address] [place] [address] Program Planner: David Montez MD Immature granulocytes/100 WBC (Bld) 0 % Normal 0 [facility] Comment on above: Performed By: #### C DP, BMPX #### [address] [place], [place] 1828283 Program Planner: David Montez MD Lymphocytes (Bld) [#/Vol] 1.64 10*3/uL Normal 1.10-3.70 [facility] Comment on above: Performed By: #### C DP, BMPX #### [address] [place] [address] Program Planner: David Montez MD Lymphocytes/100 WBC (Bld) 20 % Low 24-43 [facility] Comment on above: Performed By: #### C DP, BMPX #### [address] [place], [place] 6137083 Program Planner: David Montez MD MCH (RBC) [Entitic mass] 32.6 pg Normal 25.2-33.5 [facility] Comment on above: Performed By: #### C DP, BMPX #### [address] [place], [facility]83 Program Planner: David Montez MD MCHC (RBC) [Mass/Vol] 32.3 g/dL Normal 28.4-34.[address] [facility] Comment on above: Performed By: #### C DP, BMPX #### [address] [place], [facility]83 Program Planner: David Montez MD MCV (RBC) [Entitic vol] 100.9 fL Normal 82.6-102.9 [facility] Comment on above: Performed By: #### C DP, BMPX #### [address] [place] [address] Program Planner: David Montez MD Monocytes (Bld) [#/Vol] 0.69 10*3/uL Normal 0.10-1.20 [facility] Comment on above: Performed By: #### C DP, BMPX #### [address] [place], [facility]83 Program Planner: David Montez MD Monocytes/100 WBC (Bld) 8 % Normal 3-12 [facility] Comment on above: Performed By: #### C DP, BMPX #### [address] [place] [address] Program Planner: David Montez MD Neutrophil (Seg) 67 % High 36-65 [facility] Comment on above: Performed By: #### C DP, BMPX #### [facility] [address] [place] [address] [place], [place] 8128983 Program Planner: David Montez MD NRBC Automated 0.0 per 100 WBC Normal 0.0 [facility] Comment on above: Performed By: #### C DP, BMPX #### [facility] [address] [place], [place] [address]79[address]3 Program Planner: David Montez MD Platelet mean volume (Bld) [Entitic vol] 8.9 fL Normal 8.1-13.5 [facility] Comment on above: Performed By: #### C DP, BMPX #### [address] [place], [place] 5269683 Program Planner: David Montez MD Platelets (Bld) [#/Vol] 217 10*3/uL Normal 138-453 [facility] Comment on above: Performed By: #### C DP, BMPX #### [address] [place], [place] 9481283 Program Planner: aDvid Montez MD RBC (Bld) [#/Vol] 3.25 10*6/uL Low 4.21-5.77 [facility] Comment on above: Performed By: #### C DP, BMPX #### [address] [place], [place] 7354583 Program Planner: David Montez MD WBC (Bld) [#/Vol] 8.2 10*3/uL Normal 3.5-11.3 [facility] Comment on above: Performed By: #### C DP, BMPX #### [facility] [address] [place], [place] 8312383 Program Planner: David Montez MD Cult,Urineon 06-13-2022 Cult,Urine Specimen Description .CLEAN CATCH URINE Culture STREPTOCOCCI, BETA HEMOLYTIC GROUP C >[id number] CFU/ML Report Status FINAL 06/13/2022 Abnormal [facility] Comment on above: Performed By: #### C DP, BMPX #### [address] [place] [address] Program Planner: David Montez MD XR ABDOMEN (2 VIEWS)on [...] Greg Hernandez MD 06/13/22 Final result Normal [facility] CBC with Diffon 06-12-2022 Abs. Basophil 0.04 k/uL Normal 0.00-0.20 [facility] Comment on above: Performed By: #### C DP, CP, MG #### [address] [place] [address] Program Planner: David Montez MD Abs.Imm.Granulocyte 0.04 k/uL Normal 0.00-0.30 [facility] Comment on above: Performed By: #### C DP, CP, MG #### [address] [place] [address] Program Planner: David Montez MD Abs.Neutrophil (Seg) 9.37 k/uL High 1.50-8.10 [facility] Comment on above: Performed By: #### C DP, CP, MG #### [address] [place] [address] Program Planner: David Montez MD Basophils/100 WBC (Bld) 0 % Normal 0-2 [facility] Comment on above: Performed By: #### C DP, CP, MG #### [facility] [address] [place], [place] [address] Program Planner: David Montez MD Eosinophils (Bld) [#/Vol] 0.06 10*3/uL Normal 0.00-0.44 [facility] Comment on above: Performed By: #### C DP, CP, MG #### [address] [place], [place] [address] Program Planner: David Montez MD Eosinophils/100 WBC (Bld) 1 % Normal 1-4 [facility] Comment on above: Performed By: #### C DP, CP, MG #### [address] [place], [place] [address] Program Planner: David Montez MD Erythrocyte distribution width (RBC) [Ratio] 13.1 % Normal 11.8-14.4 [facility] Comment on above: Performed By: #### C DP, CP, MG #### [address] [place], [place] [address] Program Planner: David Montez MD Hematocrit (Bld) [Volume fraction] 38.8 % Low 40.7-50.3 [facility] Comment on above: Performed By: #### C DP, CP, MG #### [address] [place], [facility]83 Program Planner: David Montez MD Hemoglobin (Bld) [Mass/Vol] 12.5 g/dL Low 13.0-17.0 [facility] Comment on above: Performed By: #### C DP, CP, MG #### [address] [place], [facility]83 Program Planner: David Montez MD Immature granulocytes/100 WBC (Bld) 0 % Normal 0 [facility] Comment on above: Performed By: #### C DP, CP, MG #### [facility] [address] [place] [address] [place] [address] Program Planner: David Montez MD Lymphocytes (Bld) [#/Vol] 0.84 10*3/uL Low 1.10-3.70 [facility] Comment on above: Performed By: #### C DP, CP, MG #### [address] [place], [place] [address] Program Planner: David Montez MD Lymphocytes/100 WBC (Bld) 8 % Low 24-43 [facility] Comment on above: Performed By: #### C DP, CP, MG #### [address] [place] [address] Program Planner: David Montez MD MCH (RBC) [Entitic mass] 32.9 pg Normal 25.2-33.5 [facility] Comment on above: Performed By: #### C DP, CP, MG #### [address] [place], [facility]83 Program Planner: David Montez MD MCHC (RBC) [Mass/Vol] 32.2 g/dL Normal 28.4-34.[address] [facility] Comment on above: Performed By: #### C DP, CP, MG #### [address] [place], [place] [address] Program Planner: David Montez MD MCV (RBC) [Entitic vol] 102.1 fL Normal 82.6-102.9 [facility] Comment on above: Performed By: #### C DP, CP, MG #### [address] [place] [address] Program Planner: David Montez MD Monocytes (Bld) [#/Vol] 0.53 10*3/uL Normal 0.10-1.20 [facility] Comment on above: Performed By: #### C DP, CP, MG #### [facility] [address] [place] [address] Program Planner: David Montez MD Monocytes/100 WBC (Bld) 5 % Normal 3-12 [facility] Comment on above: Performed By: #### C DP, CP, MG #### [facility] [address] [place], [facility]83 Program Planner: David Montez MD Neutrophil (Seg) 86 % High 36-65 [facility] Comment on above: Performed By: #### C DP, CP, MG #### [address] [place], [place] [address] Program Planner: David Montez MD NRBC Automated 0.0 per 100 WBC Normal 0.0 [facility] Comment on above: Performed By: #### C DP, CP, MG #### [address] [place], [place] [address] Program Planner: David Montez MD Platelet mean volume (Bld) [Entitic vol] 9.0 fL Normal 8.1-13.5 [facility] Comment on above: Performed By: #### C DP, CP, MG #### [address] [place], [facility]83 Program Planner: David Montez MD Platelets (Bld) [#/Vol] 261 10*3/uL Normal 138-453 [facility] Comment on above: Performed By: #### C DP, CP, MG #### [address] [place], [place] 5334583 Program Planner: David Montez MD RBC (Bld) [#/Vol] 3.80 10*6/uL Low 4.21-5.77 [facility] Comment on above: Performed By: #### C DP, CP, MG #### [address] [place] [address] Program Planner: David Montez MD WBC (Bld) [#/Vol] 10.9 10*3/uL Normal 3.5-11.3 [facility] Comment on above: Performed By: #### C DP, CP, MG #### [facility] [address] [place] [address] Program Planner: David Montez MD CT ABDOMEN PELVIS WO [...] Concha Garza MD 06/12/22 Final result Normal [facility] CT HEAD WO CONTRASTon 2022 CT [...] Gagan Rowe MD 06/12/22 Final result Normal [facility] Comp Metabolic Profon 2022 Albumin [Mass/Vol] 4.3 g/dL Normal 3.5-5.2 [facility] Comment on above: Performed By: #### C DP CP, MG #### [facility] [address] [place] [address] Program Planner: David Montez MD Albumin/Glob Ratio 1.2 Normal 1.0-2.5 [facility] Comment on above: Performed By: #### C DP CP, MG #### [facility] [address] [place], [place] 876[address]83 Program Planner: David Montez MD Alkaline Phos 149 U/L High 40-129 [facility] Comment on above: Performed By: #### C DP, CP, MG #### [facility] [address] [place], [place] [id number] Program Planner: David Montez MD ALT [Catalytic activity/Vol] 16 U/L Normal 5-41 [facility] Comment on above: Performed By: #### C DP, CP, MG #### [facility] [address] [place], [place] 7100483 Program Planner: David Montez MD Anion gap [Moles/Vol] 9 mmol/L Normal 9-[address] [facility] Comment on above: Performed By: #### C DP, CP, MG #### [facility] [address] [place], [place] 545[address]83 Program Planner: David Montez MD AST [Catalytic activity/Vol] 16 U/L Normal <40 [facility] Comment on above: Performed By: #### C DP, CP, MG #### [facility] [address] [place], [place] [id number] Program Planner: David Montez MD Bilirubin [Mass/Vol] 0.3 mg/dL Normal 0.3-1.2 [facility] Comment on above: Performed By: #### C DP, CP, MG #### [facility] [address] [place], [place] 1355183 Program Planner: David Montez MD BUN/CRE Ratio 13 Normal 9-20 [facility] Comment on above: Performed By: #### C DP, CP, MG #### [facility] [address] [place] [address] Program Planner: David Montez MD Calcium [Mass/Vol] 9.9 mg/dL Normal 8.6-10.4 [facility] Comment on above: Performed By: #### C DP, CP, MG #### [facility] [address] [place] [address] Program Planner: David Montez MD Chloride [Moles/Vol] 101 mmol/L Normal 98-107 [facility] Comment on above: Performed By: #### C DP, CP, MG #### [facility] [address] [place], [place] 8058283 Program Planner: David Montez MD CO2 [Moles/Vol] 32 mmol/L High 20-31 [facility] Comment on above: Performed By: #### C DP, CP, MG #### [facility] [address] [place], [place] 3652283 Program Planner: David Montez MD Creatinine [Mass/Vol] 1.18 mg/dL Normal 0.70-1.[address] [facility] Comment on above: Performed By: #### C DP, CP, MG #### [facility] [address] [place] [address] Program Planner: David Montez MD GFR/1.73 sq M.predicted among non-blacks MDRD (S/P/Bld) [Vol rate/Area] mL/min/{1.73_m2} Normal >60 [facility] Comment on above: Result Comment: These [...] By: #### C DP, CP, MG #### [facility] [address] [place] [address] Program Planner: David Montez MD Glucose [Mass/Vol] 125 mg/dL High 70-99 [facility] Comment on above: Performed By: #### C DP, CP, MG #### [address] [place], [place] [id number] Program Planner: David Montez MD Potassium [Moles/Vol] 3.6 mmol/L Low 3.7-5.[address] [facility] Comment on above: Performed By: #### C DP, CP, MG #### [address] [place], [place] [id number] Program Planner: David Montez MD Protein [Mass/Vol] 7.8 g/dL Normal 6.4-8.3 [facility] Comment on above: Performed By: #### C DP, CP, MG #### [address] [place], [place] 3681783 Program Planner: David Montez MD Sodium [Moles/Vol] 142 mmol/L Normal 135-144 [facility] Comment on above: Performed By: #### C DP, CP, MG #### [address] [place], [place] 9285883 Program Planner: David Montez MD Urea nitrogen [Mass/Vol] 15 mg/dL Normal 8-23 [facility] Comment on above: Performed By: #### C DP, CP, MG #### [address] [place] [address] Program Planner: David Montez MD Lactate, Sepsison 06-12-2022 Lactic Acid, Sepsis 1.5 mmol/L Normal 0.5-1.9 [facility] Comment on above: Performed By: #### R EJEC, IPF, CDP #### [address] [place], [place] 4774183 Program Planner: David Montez MD Magnesiumon 06-12-2022 Magnesium [Mass/Vol] 1.8 mg/dL Normal 1.6-2.6 [facility] Comment on above: Performed By: #### C DP, CP, MG #### [facility] [address] [place], [place] 4877583 Program Planner: David Montez MD Urinalysis w/ Microon 2022 Amorphous sediment LM Ql (Urine sed) 2+ Abnormal NONE [facility] Comment on above: Performed By: #### R EJEC, IPF, CDP #### [facility] [address] [place], [place] [id number] Program Planner: David Montez MD Bacteria 2+ Abnormal [facility] Comment on above: Performed By: #### R EJRELL, IPF, CDP #### [facility] [address] [place], [place] [id number] Program Planner: David Montez MD Bilirubin, SemiQt,Ur Negative Normal NEG [facility] Comment on above: Performed By: #### R EJEC, IPF, CDP #### [facility] [address] [place], [place] 2943583 Program Planner: David Montez MD Blood, Urine Negative Normal NEG [facility] Comment on above: Performed By: #### R EJEC, IPF, CDP #### [facility] [address] [place], [place] 4698983 Program Planner: David Montez MD Clarity (U) SLIGHTLY CLOUDY Abnormal CLEAR [facility] Comment on above: Performed By: #### R EJEC, IPF, CDP #### [facility] [address] [place], [place] 0052183 Program Planner: David Montez MD Color (U) Yellow Normal L [facility] Comment on above: Performed By: #### R EJEC, IPF, CDP #### [facility] [address] [place], [place] 4015683 Program Planner: David Montez MD Epithelial cells LM Ql (Urine sed) 0 TO 2 Normal 0-5 [facility] Comment on above: Performed By: #### R EJEC, IPF, CDP #### [facility] [address] [place], [place] 8100083 Program Planner: David Montez MD Glucose Ql (U) Negative [facility]G [facility] Comment on above: Performed By: #### R EJEC, IPF, CDP #### [facility] [address] [place], [place] 1905083 Program Planner: David Montez MD Ketones Ql (U) Negative Normal NEG [facility] Comment on above: Performed By: #### R EJRELL, IPF, CDP #### [address] [place], [place] 1715383 Program Planner: David Montez MD Leukocyte esterase Test strip Ql (U) TRACE Abnormal NEG [facility] Comment on above: Performed By: #### R EJEC, IPF, CDP #### [address] [place], [place] 1998983 Program Planner: David Montez MD Nitrite,Ur Negative Normal NEG [facility] Comment on above: Performed By: #### R EJEC, IPF, CDP #### [facility] [address] [place] [address] [place] [place], [place] 1927283 Program Planner: David Montez MD PH,Ur 8.0 Normal 5.0-9.0 [facility] Comment on above: Performed By: #### R EJEC, IPF, CDP #### [facility] [address] [place] [address] Dr. [place], [place] [id number] Program Planner: David Montez MD Protein Ql (U) Negative Normal NEG [facility] in Hospital Comment on above: Performed By: #### R EJEC, IPF, CDP #### [facility] [address] [place] [address] [place], [place] 0590983 Program Planner: David Montez MD Spec. [place],Ur 1.010 Normal 1.010-1.020 [facility] Comment on above: Performed By: #### YULIYA COUGHLIN, CDP #### [facility] [address] [place], [place] 9457983 Program Planner: David Montez MD Urine RBC's 0 TO 2 Normal 0-2 [facility] Comment on above: Performed By: #### YULIYA COUGHLIN, CDP #### [facility] [address] [place], [place] 2929683 Program Planner: David Montez MD Urine WBC's 2 TO 5 Normal 0-5 [facility] Comment on above: Performed By: #### YULIYA COUGHLIN, CDP #### [facility] [address] [place] [address] [place], [place] 5889383 Program Planner: David Montez MD Urobilinogen,Ur Normal Normal NORM [facility] Comment on above: Performed By: #### YULIYA COUGHLIN, CDP #### [facility] [address] [place] [address] [place]. [place], [place] [phone] Program Planner: David Montez MD Venous Blood Gaseson 023 Body Temp. 37.0 Normal [facility] Comment on above: Performed By: #### YULIYA COUGHLIN, CDP #### [facility] [address] [place] [address] [place], [place] [id number] Program Planner: David Montez MD HCO3 (Bld) [Moles/Vol] 28.5 mmol/L Normal 24.0-30.0 [facility] Comment on above: Performed By: #### YULIYA COUGHLIN, CDP #### [address] [place] [address] Program Planner: David Montez MD Oxygen saturation in Blood 73.6 % Normal 60.0-85.0 [facility] Comment on above: Performed By: #### YULIYA COUGHLIN, CDP #### [facility] [address] [place] [address] Program Planner: David Montez MD pCO2 44.8 mm Hg Normal 39-55 [facility] Comment on above: Performed By: #### YULIYA COUGHLIN, CDP #### [facility] [address] [place], [place] 1938583 Program Planner: David Montez MD pH (Bld) 7.422 [pH] High 7.32-7.42 [facility] Comment on above: Performed By: #### YULIYA COUGHLIN, CDP #### [facility] [address] [place] [address] Program Planner: David Montez MD pO2 38.4 mm Hg Normal 30.0-50.0 [facility] Comment on above: Performed By: #### YULIYA COUGHLIN, CDP #### [facility] [address] [place] [address] Program Planner: David Montez MD Positive Base Excess 3.5 mmol/L High 0.0-2.0 [facility] Comment on above: Performed By: #### YULIYA COUGHLIN, CDP #### [facility] [address] [place] [address] Program Planner: David Montez MD XR CHEST PORTABLEon 06-13-19 23 XR CHEST PORTABLE EXAMINATION: ONE XRAY VIEW [...] Concha Garza MD 06/12/22 Final result Normal [facility] COVID-19, Rapidon 05-12-2022 SARS-CoV-2 (COVID-19) RdRp gene POLO+probe Ql (Resp) Not detected Not Detected [facility] Comment on above: Rapid NAAT: The specimen [...] management decisions. Fact sheet for Healthcare Providers: https://www.fda.gov/media/624118/download Fact sheet for Patients: https://www.fda.gov/media/268470/download Methodology: Isothermal Nucleic Acid Amplification Specimen Description .NASOPHARYNGEAL SWAB [facility] [id number] 05-12-2022 SARS-CoV-2 (COVID-19) RNA POLO+probe Ql (Unsp spec) Not detected Normal NOTDET [facility] Comment on above: Result Comment: Rapid NAAT: [...] management decisions. Fact sheet for Healthcare Providers: https://www.fda.gov/media/693772/download Fact sheet for Patients: https://www.fda.gov/media/447989/download Methodology: Isothermal Nucleic Acid Amplification Performed By: #### R EJEC, IPF, CDP #### [facility] [address] [place] [address] Program Planner: David Montez MD CBC auto differentialon 03-0 Absolute Eos # [facility] Absolute Immature Granulocyte 0.05 [facility] Absolute Lymph # 1.27 [facility] Absolute Prowers # 0.98 [facility] Basophils (Bld) [#/Vol] 0.04 10*3/uL [facility] Basophils/100 WBC (Bld) 0 % 0 - 2 % [facility] Eosinophils/100 WBC (Bld) 0 % Low 1 - 4 % [facility] Hematocrit (Bld) [Volume fraction] 34.8 % Low 40.7 - 50.3 % [facility] Hemoglobin (Bld) [Mass/Vol] 11.4 g/dL Low 13.0 - 17.0 g/dL [facility] Immature granulocytes/100 WBC (Bld) 0 % 0 [facility] Interpretation and review of laboratory results Abnormal [facility] Lymphocytes/100 WBC (Bld) 11 % Low 24 - 43 % [facility] MCH (RBC) [Entitic mass] 34.0 pg High 25.2 - 33.5 pg [facility] MCHC (RBC) [Mass/Vol] 32.8 g/dL 28.4 - 34.8 g/dL [facility] MCV (RBC) [Entitic vol] 103.9 fL High 82.6 - 102.9 fL [facility] Monocytes/100 WBC (Bld) 9 % 3 - 12 % [facility] NRBC Automated 0.0 0.0 per 100 WBC [facility] Platelet distribution width (Bld) [Ratio] 13.0 % 11.8 - 14.4 % [facility] Platelet mean volume (Bld) [Entitic vol] 10.2 fL 8.1 - 13.5 fL [facility] Platelets (Bld) [#/Vol] 147 10*3/uL [facility] RBC (Bld) [#/Vol] 3.35 10*6/uL Low 4.21 - 5.7 7 m/uL [facility] Segmented neutrophils/100 WBC (Bld) 80 % High 36 - 65 % [facility] Segs Absolute 9.05 High [facility] WBC (Bld) [#/Vol] 11.4 10*3/uL High [facility] CBC with Diffon 05-11-2022 Abs. Basophil 0.04 k/uL Normal 0.00-0.20 [facility] Comment on above: Performed By: #### YULIYA COUGHLIN, CDP #### [facility] [address] [place] [address] [place] [address] Program Planner: David Montez MD Abs. Eosinophil <0.03 Normal 0.00-0.44 [facility] Comment on above: Performed By: #### YULIYA COUGHLIN, CDP #### [address] [place] [address] Program Planner: David Montez MD Abs.Imm.Granulocyte 0.05 k/uL Normal 0.00-0.30 [facility] Comment on above: Performed By: #### YULIYA COUGHLIN, CDP #### [address] [place] [address] Program Planner: David Montez MD Abs.Neutrophil (Seg) 9.05 k/uL High 1.50-8.10 [facility] Comment on above: Performed By: #### YULIYA COUGHLIN, CDP #### [address] [place] [address] Program Planner: David Montez MD Basophils/100 WBC (Bld) 0 % Normal 0-2 [facility] Comment on above: Performed By: #### YULIYA COUGHLIN, CDP #### [facility] [address] [place] [address] [place] [address] Program Planner: David Montez MD Eosinophils/100 WBC (Bld) 0 % Low 1-4 [facility] Comment on above: Performed By: #### YULIYA COUGHLIN, CDP #### [address] [place] [address] Program Planner: David Montez MD Erythrocyte distribution width (RBC) [Ratio] 13.0 % Normal 11.8-14.4 [facility] Comment on above: Performed By: #### YULIYA COUGHLIN, CDP #### [address] [place] [address] Program Planner: David Montez MD Hematocrit (Bld) [Volume fraction] 34.8 % Low 40.7-50.3 [facility] Comment on above: Performed By: #### YULIYA COUGHLIN, CDP #### [address] [place] [address] Program Planner: David Montez MD Hemoglobin (Bld) [Mass/Vol] 11.4 g/dL Low 13.0-17.0 [facility] Comment on above: Performed By: #### YULIYA COUGHLIN, CDP #### [address] [place] [address] Program Planner: David Montez MD Immature granulocytes/100 WBC (Bld) 0 % Normal 0 [facility] Comment on above: Performed By: #### YULIYA COUGHLIN, CDP #### [address] [place] [address] Program Planner: David Montez MD Lymphocytes (Bld) [#/Vol] 1.27 10*3/uL Normal 1.10-3.70 [facility] Comment on above: Performed By: #### YULIYA COUGHLIN, CDP #### [facility] [address] [place], [facility] Program Planner: David Montez MD Lymphocytes/100 WBC (Bld) 11 % Low 24-43 [facility] Comment on above: Performed By: #### YULIYA COUGHLIN, CDP #### [facility] [address] [place], [place] [address] Program Planner: David Montez MD MCH (RBC) [Entitic mass] 34.0 pg High 25.2-33.5 [facility] Comment on above: Performed By: #### YULIYA COUGHLIN, CDP #### [address] [place] [address] Program Planner: Davdi Montez MD MCHC (RBC) [Mass/Vol] 32.8 g/dL Normal 28.4-34.[address] [facility] Comment on above: Performed By: #### YULIYA COUGHLIN, CDP #### [address] [place], [facility] Program Planner: David Montez MD MCV (RBC) [Entitic vol] 103.9 fL High 82.6-102.9 [facility] Comment on above: Performed By: #### YULIYA COUGHLIN, CDP #### [address] [place], [facility] Program Planner: David Montez MD Monocytes (Bld) [#/Vol] 0.98 10*3/uL Normal 0.10-1.20 [facility] Comment on above: Performed By: #### YULIYA COUGHLIN, CDP #### [facility] [address] [place] [address] Program Planner: David Montez MD Monocytes/100 WBC (Bld) 9 % Normal 3-12 [facility] Comment on above: Performed By: #### R EJEC, IPF, CDP #### [facility] [address] [place], [place] 4309383 Program Planner: David Montez MD Neutrophil (Seg) 80 % High 36-65 [facility] Comment on above: Performed By: #### R ANNE MARIE, IPF, CDP #### [facility] [address] [place], [facility] Program Planner: David Montez MD NRBC Automated 0.0 per 100 WBC Normal 0.0 [facility] Comment on above: Performed By: #### R ANNE MARIE IPF, CDP #### [facility] [address] [place] [address] Program Planner: David Montez MD Platelet mean volume (Bld) [Entitic vol] 10.2 fL Normal 8.1-13.5 [facility] Comment on above: Performed By: #### R ANNE MARIE IPF, CDP #### [address] [place], [facility] Program Planner: David Montez MD Platelets (Bld) [#/Vol] 147 10*3/uL Normal 138-453 [facility] Comment on above: Performed By: #### R ANNE MARIE IPF, CDP #### [address] [place], [facility] Program Planner: David Montez MD RBC (Bld) [#/Vol] 3.35 10*6/uL Low 4.21-5.77 [facility] Comment on above: Performed By: #### R ANNE MARIE IPF, CDP #### [facility] [address] [place] [address] Program Planner: David Montez MD WBC (Bld) [#/Vol] 11.4 10*3/uL High 3.5-11.3 [facility] Comment on above: Performed By: #### R EJRELL, IPF, CDP #### [facility] [address] [place], [place] 946[address]83 Program Planner: David Montez MD Comp Metabolic Pr/rfx MGon 0 - Albumin [Mass/Vol] 3.3 g/dL Low 3.5-5.2 [facility] Comment on above: Performed By: #### R ANNE MARIE IPF, CDP #### [facility] [address] [place], [place] 5310583 Program Planner: David Montez MD Albumin/Glob Ratio 0.9 Low 1.0-2.5 [facility] Comment on above: Performed By: #### R ANNE MARIE IPF, CDP #### [facility] [address] [place], [place] 9205483 Program Planner: David Montez MD Alkaline Phos 108 U/L Normal 40-129 [facility] Comment on above: Performed By: #### R ANNE MARIE IPF, CDP #### [facility] [address] [place], [place] 8331183 Program Planner: David Montez MD ALT [Catalytic activity/Vol] 12 U/L Normal 5-41 [facility] Comment on above: Performed By: #### R ANNE MARIE IPF, CDP #### [facility] [address] [place], [place] 2927283 Program Planner: David Montez MD Anion gap [Moles/Vol] 14 mmol/L Normal 9-[address] [facility] Comment on above: Performed By: #### R ANNE MARIE, IPF, CDP #### [facility] [address] [place], [place] 4078683 Program Planner: David Montez MD AST [Catalytic activity/Vol] 17 U/L Normal <40 [facility] Comment on above: Performed By: #### R ANNE MARIE, IPF, CDP #### [facility] [address] [place], [place] 6094183 Program Planner: David Montez MD Bilirubin [Mass/Vol] 0.9 mg/dL Normal 0.3-1.2 [facility] Comment on above: Performed By: #### YULIYA COUGHLIN, CDP #### [facility] [address] [place], [place] 0478283 Program Planner: David Montez MD BUN/CRE Ratio 25 High 9-20 [facility] Comment on above: Performed By: #### YULIYA COUGHLIN, CDP #### [facility] [address] [place], [place] 3537583 Program Planner: David Montez MD Calcium [Mass/Vol] 9.0 mg/dL Normal 8.6-10.4 [facility] Comment on above: Performed By: #### YULIYA COUGHLIN, CDP #### [facility] [address] [place] [address] [place], [place] 4960083 Program Planner: David Montez MD Chloride [Moles/Vol] 109 mmol/L High 98-107 [facility] Comment on above: Performed By: #### YULIYA COUGHLIN, CDP #### [address] [place], [place] 8783783 Program Planner: David Montez MD CO2 [Moles/Vol] 23 mmol/L Normal 20-31 [facility] Comment on above: Performed By: #### YULIYA COUGHLIN, CDP #### [facility] [address] [place], [place] 8342383 Program Planner: David Montez MD Creatinine [Mass/Vol] 1.00 mg/dL Normal 0.70-1.[address] [facility] Comment on above: Performed By: #### YULIYA COUGHLIN, CDP #### [facility] [address] [place], [place] 1686783 Program Planner: David Montez MD GFR/1.73 sq M.predicted among non-blacks MDRD (S/P/Bld) [Vol rate/Area] mL/min/{1.73_m2} Normal >60 [facility] Comment on above: Result Comment: These [...] Performed By: #### YULIYA COUGHLIN, CDP #### [facility] [address] [place] [address] Program Planner: David Montez MD Glucose [Mass/Vol] 82 mg/dL Normal 70-99 [facility] Comment on above: Performed By: #### YULIYA COUGHLIN, CDP #### [facility] [address] [place] [address] Program Planner: David Montez MD Potassium [Moles/Vol] 3.9 mmol/L Normal 3.7-5.[address] [facility] Comment on above: Performed By: #### YULIYA COUGHLIN, CDP #### [address] [place] [address] Program Planner: David Montez MD Protein [Mass/Vol] 6.9 g/dL Normal 6.4-8.3 [facility] Comment on above: Performed By: #### YULIYA COUGHLIN, CDP #### [facility] [address] [place] [address] Program Planner: David Montez MD Sodium [Moles/Vol] 146 mmol/L High 135-144 [facility] Comment on above: Performed By: #### YULIYA COUGHLIN, CDP #### [facility] [address] [place] [address] Program Planner: David Montez MD Urea nitrogen [Mass/Vol] 25 mg/dL High 8-23 [facility] Comment on above: Performed By: #### R EJEC, IPF, CDP #### [facility] [address] [place] [address] Program Planner: David Montez MD Comprehensive Metabolic Pane l w/ Reflex to MGon 05-11-2022 Albumin [Mass/Vol] 3.3 g/dL Low 3.5 - 5.2 g/dL [facility] Albumin/Globulin [Mass ratio] 0.9 {ratio} Low 1.0 - 2.5 [facility] ALP [Catalytic activity/Vol] 108 U/L 40 - 129 U/L [facility] ALT [Catalytic activity/Vol] 12 U/L 5 - 41 U/L [facility] Anion gap [Moles/Vol] 14 mmol/L 9 - 17 mmol/L [facility] AST [Catalytic activity/Vol] 17 U/L NINF - 40 U/L [facility] Bilirubin [Mass/Vol] 0.9 mg/dL 0.3 - 1 .2 mg/dL [facility] Calcium [Mass/Vol] 9.0 mg/dL 8.6 - 10. 4 mg/dL [facility] Chloride [Moles/Vol] 109 mmol/L High 98 - 10 7 mmol/L [facility] CO2 [Moles/Vol] 23 mmol/L 20 - 31 mmol/L [facility] Creatinine [Mass/Vol] 1 mg/dL 0.70 - 1.20 mg/dL [facility] GFR/1.73 sq M.predicted MDRD (S/P/Bld) [Vol rate/Area] - PINF [facility] Comment on above: These results are not [...] [Mass/Vol] 82 mg/dL 70 - 99 mg/dL [facility] Interpretation and review of laboratory results Abnormal [facility] Potassium [Moles/Vol] 3.9 mmol/L 3.7 - 5.3 mmol/L [facility] Protein [Mass/Vol] 6.9 g/dL 6.4 - 8.3 g/dL [facility] Sodium [Moles/Vol] 146 mmol/L High 135 - 144 mmol/L [facility] Urea nitrogen [Mass/Vol] 25 mg/dL High 8 - 23 mg/dL [facility] Urea nitrogen/Creatinine (Bld) [Mass ratio] 25 High 9 - 20 [facility] FL SMALL BOWEL FOLLOW THROUG H ONLYon 05-11-2022 [place] SMALL BOWEL FOLLOW THROUGH ONLY [...] by: Abbey Joaquin MD 05/11/22 Final result Normal [facility] Mildly distended loops of small bowel in the left abdomen with normal small bowel transit time. [facility] RIS CONSOLIDATED EXAMINATION: SMALL BOWEL FOLLOW THROUGH [...] images of the terminal ileum are unremarkable. [facility] Abbey Ann MD - 05/11/2022 EXAMINATION: SMALL BOWEL FOLLOW [...] abdomen with normal small bowel transit time. [employer] Work Phone: Radiology Study observation (narrative) [employer] Work Phone: [place] SMALL BOWEL FOLLOW THROUG H ONLYOrdered By: Abbey Joaquin on 05-11-2022 [facility] [employer] Work Phone: CBC auto differentialon Absolute Eos # [facility] [employer] Absolute Immature Granulocyte 0.06 [facility] Absolute Lymph # 1.45 [facility] Hyper9 Absolute Prowers # 0.87 [facility] [employer] Basophils (Bld) [#/Vol] 0.06 10*3/uL [facility] Basophils/100 WBC (Bld) 0 % 0 - 2 % [facility] Eosinophils/100 WBC (Bld) 0 % Low 1 - 4 % [facility] Hematocrit (Bld) [Volume fraction] 35.9 % Low 40.7 - 50.3 % [facility] Hemoglobin (Bld) [Mass/Vol] 12.0 g/dL Low 13.0 - 17.0 g/dL [facility] Immature granulocytes/100 WBC (Bld) 0 % 0 [facility] Interpretation and review of laboratory results Abnormal [facility] Lymphocytes/100 WBC (Bld) 11 % Low 24 - 43 % [facility] MCH (RBC) [Entitic mass] 33.8 pg High 25.2 - 33.5 pg [facility] MCHC (RBC) [Mass/Vol] 33.4 g/dL 28.4 - 34.8 g/dL [facility] MCV (RBC) [Entitic vol] 101.1 fL 82.6 - 102.9 fL [facility] Monocytes/100 WBC (Bld) 7 % 3 - 12 % [facility] NRBC Automated 0.0 0.0 per 100 WBC [facility] Platelet distribution width (Bld) [Ratio] 13.1 % 11.8 - 14.4 % [facility] Platelet mean volume (Bld) [Entitic vol] 9.2 fL 8.1 - 13.5 fL [facility] Platelets (Bld) [#/Vol] 170 10*3/uL [facility] RBC (Bld) [#/Vol] 3.55 10*6/uL Low 4.21 - 5.7 7 m/uL [facility] Segmented neutrophils/100 WBC (Bld) 82 % High 36 - 65 % [facility] Segs Absolute 10.97 High [facility] WBC (Bld) [#/Vol] 13.4 10*3/uL High [facility] CBC with Diffon 05-10-2022 Abs. Basophil 0.06 k/uL Normal 0.00-0.20 [facility] Comment on above: Performed By: #### C CAROLA CMPX #### [facility] [address] [place] [address] Program Planner: David Montez MD Abs. Eosinophil <0.03 Normal 0.00-0.44 [facility] Comment on above: Performed By: #### C DP, CMPX #### [facility] [address] [place], [place] [id number] Program Planner: David Montez MD Abs.Imm.Granulocyte 0.06 k/uL Normal 0.00-0.30 [facility] Comment on above: Performed By: #### C DP, CMPX #### [facility] [address] [place], [facility]83 Program Planner: David Montez MD Abs.Neutrophil (Seg) 10.97 k/uL High 1.50-8.10 [facility] Comment on above: Performed By: #### C DP, CMPX #### [address] [place], [facility]83 Program Planner: David Montez MD Basophils/100 WBC (Bld) 0 % Normal 0-2 [facility] Comment on above: Performed By: #### C DP, CMPX #### [address] [place], [place] [address] Program Planner: David Montez MD Eosinophils/100 WBC (Bld) 0 % Low 1-4 [facility] Comment on above: Performed By: #### C DP, CMPX #### [address] [place], [facility]83 Program Planner: David Montez MD Erythrocyte distribution width (RBC) [Ratio] 13.1 % Normal 11.8-14.4 [facility] Comment on above: Performed By: #### C DP, CMPX #### [address] [place], [facility]83 Program Planner: David Montez MD Hematocrit (Bld) [Volume fraction] 35.9 % Low 40.7-50.3 [facility] Comment on above: Performed By: #### C DP, CMPX #### [address] [place], [facility]83 Program Planner: David Montez MD Hemoglobin (Bld) [Mass/Vol] 12.0 g/dL Low 13.0-17.0 [facility] Comment on above: Performed By: #### C DP, CMPX #### [address] [place], [place] [id number] Program Planner: David Montez MD Immature granulocytes/100 WBC (Bld) 0 % Normal 0 [facility] Comment on above: Performed By: #### C DP, CMPX #### [address] [place], [place] 1092683 Program Planner: David Montez MD Lymphocytes (Bld) [#/Vol] 1.45 10*3/uL Normal 1.10-3.70 [facility] Comment on above: Performed By: #### C DP, CMPX #### [address] [place], [place] [id number] Program Planner: David Montez MD Lymphocytes/100 WBC (Bld) 11 % Low 24-43 [facility] Comment on above: Performed By: #### C DP, CMPX #### [address] [place], [place] [id number] Program Planner: David Montez MD MCH (RBC) [Entitic mass] 33.8 pg High 25.2-33.5 [facility] Comment on above: Performed By: #### C DP, CMPX #### [address] [place], [place] [id number] Program Planner: David Montez MD MCHC (RBC) [Mass/Vol] 33.4 g/dL Normal 28.4-34.[address] [facility] Comment on above: Performed By: #### C DP, CMPX #### [address] [place], [place] [id number] Program Planner: David Montez MD MCV (RBC) [Entitic vol] 101.1 fL Normal 82.6-102.9 [facility] Comment on above: Performed By: #### C DP, CMPX #### [facility] [address] [place] [address] Program Planner: David Montez MD Monocytes (Bld) [#/Vol] 0.87 10*3/uL Normal 0.10-1.20 [facility] Comment on above: Performed By: #### C DP, CMPX #### [facility] [address] [place] [address] Program Planner: David Montez MD Monocytes/100 WBC (Bld) 7 % Normal 3-12 [facility] Comment on above: Performed By: #### C DP, CMPX #### [address] [place], [place] [id number] Program Planner: David Motnez MD Neutrophil (Seg) 82 % High 36-65 [facility] Comment on above: Performed By: #### C DP, CMPX #### [facility] [address] [place], [place] 1990683 Program Planner: David Montez MD NRBC Automated 0.0 per 100 WBC Normal 0.0 [facility] Comment on above: Performed By: #### C DP, CMPX #### [address] [place], [place] [id number] Program Planner: David Montez MD Platelet mean volume (Bld) [Entitic vol] 9.2 fL Normal 8.1-13.5 [facility] Comment on above: Performed By: #### C DP, CMPX #### [facility] [address] [place] [address] Program Planner: David Montez MD Platelets (Bld) [#/Vol] 170 10*3/uL Normal 138-453 [facility] Comment on above: Performed By: #### C DP, CMPX #### [facility] [address] [place], [place] 7352783 Program Planner: David Montez MD RBC (Bld) [#/Vol] 3.55 10*6/uL Low 4.21-5.77 [facility] Comment on above: Performed By: #### C DP, CMPX #### [facility] [address] [place], [place] [id number] Program Planner: David Montez MD WBC (Bld) [#/Vol] 13.4 10*3/uL High 3.5-11.3 [facility] Comment on above: Performed By: #### C DP, CMPX #### [facility] [address] [place], [place] 9075183 Program Planner: David Montez MD Comp Metabolic Pr/rfx MGon 0 - Albumin [Mass/Vol] 3.5 g/dL Normal 3.5-5.2 [facility] Comment on above: Performed By: #### C DP, CMPX #### [facility] [address] [place], [place] [id number] Program Planner: David Montez MD Albumin/Glob Ratio 1.1 Normal 1.0-2.5 [facility] Comment on above: Performed By: #### C DP, CMPX #### [facility] [address] [place] [address] Program Planner: David Montez MD Alkaline Phos 118 U/L Normal 40-129 [facility] Comment on above: Performed By: #### C DP, CMPX #### [facility] [address] [place] [address] Program Planner: David Montez MD ALT [Catalytic activity/Vol] 10 U/L Normal 5-41 [facility] Comment on above: Performed By: #### C DP, CMPX #### [facility] [address] [place], [place] 9[address]2783 Program Planner: David Montez MD Anion gap [Moles/Vol] 10 mmol/L Normal 9-[address] [facility] Comment on above: Performed By: #### C DP, CMPX #### [facility] [address] [place], [place] [id number] Program Planner: David Montez MD AST [Catalytic activity/Vol] 13 U/L Normal <40 [facility] Comment on above: Performed By: #### C DP, CMPX #### [facility] [address] [place] [address] Dr[place], [place] [phone] Program Planner: David Montez MD Bilirubin [Mass/Vol] 0.6 mg/dL Normal 0.3-1.2 [facility] Comment on above: Performed By: #### C DP, CMPX #### [facility] [address] [place] [address] Dr. [place], [place] [phone] Program Planner: David Montez MD BUN/CRE Ratio 28 High 9-20 [facility] Comment on above: Performed By: #### C DP, CMPX #### [facility] [address] [place] [address] Dr[address] [place], [place] 9321983 Program Planner: David Montez MD Calcium [Mass/Vol] 9.0 mg/dL Normal 8.6-10.4 [facility] Comment on above: Performed By: #### C DP, CMPX #### [facility] [address] [place] [address] Dr. [place], [place] [phone] Program Planner: David Montez MD Chloride [Moles/Vol] 107 mmol/L Normal 98-107 [facility] Comment on above: Performed By: #### C DP, CMPX #### [facility] [address] [place] [address] Dr[address] [place], [place] [id number] Program Planner: David Montez MD CO2 [Moles/Vol] 28 mmol/L Normal 20-31 [facility] Comment on above: Performed By: #### C DP, CMPX #### [facility] [address] [place] [address] Program Planner: David Montez MD Creatinine [Mass/Vol] 1.02 mg/dL Normal 0.70-1.[address] [facility] Comment on above: Performed By: #### C DP, CMPX #### [facility] [address] [place] [address] Program Planner: David Montez MD GFR/1.73 sq M.predicted among non-blacks MDRD (S/P/Bld) [Vol rate/Area] mL/min/{1.73_m2} Normal >60 [facility] Comment on above: Result Comment: These [...] Performed By: #### C DP, CMPX #### [facility] [address] [place] [address] Program Planner: David Montez MD Glucose [Mass/Vol] 108 mg/dL High 70-99 [facility] Comment on above: Performed By: #### C DP, CMPX #### [facility] [address] [place] [address] Program Planner: David Montez MD Potassium [Moles/Vol] 3.8 mmol/L Normal 3.7-5.[address] [facility] Comment on above: Performed By: #### C DP, CMPX #### [facility] [address] [place] [address] Program Planner: David Montez MD Protein [Mass/Vol] 6.8 g/dL Normal 6.4-8.3 [facility] Comment on above: Performed By: #### C DP, CMPX #### [facility] [address] [place] [address] Program Planner: David Montez MD Sodium [Moles/Vol] 145 mmol/L High 135-144 [facility] Comment on above: Performed By: #### C DP, CMPX #### [facility] [address] [place] [address] Program Planner: David Montez MD Urea nitrogen [Mass/Vol] 29 mg/dL High 8-23 [facility] Comment on above: Performed By: #### C DP, CMPX #### [facility] [address] [place] [address] Program Planner: David Montez MD Comprehensive Metabolic Pane l w/ Reflex to MGon 05-10-2022 Albumin [Mass/Vol] 3.5 g/dL 3.5 - 5.2 g/dL [facility] Albumin/Globulin [Mass ratio] 1.1 {ratio} 1.0 - 2.5 [facility] ALP [Catalytic activity/Vol] 118 U/L 40 - 129 U/L [facility] ALT [Catalytic activity/Vol] 10 U/L 5 - 41 U/L [facility] Anion gap [Moles/Vol] 10 mmol/L 9 - 17 mmol/L [facility] AST [Catalytic activity/Vol] 13 U/L NINF - 40 U/L [facility] Bilirubin [Mass/Vol] 0.6 mg/dL 0.3 - 1 .2 mg/dL [facility] Calcium [Mass/Vol] 9.0 mg/dL 8.6 - 10. 4 mg/dL [facility] Chloride [Moles/Vol] 107 mmol/L 98 - 10 7 mmol/L [facility] CO2 [Moles/Vol] 28 mmol/L 20 - 31 mmol/L [facility] Creatinine [Mass/Vol] 1.02 mg/dL 0.70 - 1.20 mg/dL [facility] Hyper9 GFR/1.73 sq M.predicted MDRD (S/P/Bld) [Vol rate/Area] - PINF [facility] Comment on above: These results are [...] 108 mg/dL High 70 - 99 mg/dL [facility] [employer] Interpretation and review of laboratory results Abnormal [facility] [employer] Hyper[employer] Potassium [Moles/Vol] 3.8 mmol/L 3.7 - 5.3 mmol/L [facility] Hyper9 Protein [Mass/Vol] 6.8 g/dL 6.4 - 8.3 g/dL [facility] Hyper9 Sodium [Moles/Vol] 145 mmol/L High 135 - 144 mmol/L [facility] Hyper[employer] Urea nitrogen [Mass/Vol] 29 mg/dL High 8 - 23 mg/dL [facility] Hyper9 Urea nitrogen/Creatinine (Bld) [Mass ratio] 28 High 9 - 20 [facility] Glucose, Whole Bloodon 05-10 Glucose [Mass/Vol] 88 mg/dL 74 - 100 mg/dL [facility] XR ACUTE ABD SERIES CHEST 1 VWon [...] Toby Lofton MD 05/10/22 Final result Normal [facility] No acute cardiopulmonary process. Nonspecific bowel gas pattern without evidence for obstruction. Gastric tube with the tip in the gastric fundus. [facility] EXAMINATION: TWO XRAY [...] abnormality. The surrounding soft tissues are unremarkable. [facility] Toby Lofton MD - 05/10/2022 EXAMINATION: [...] with the tip in the gastric fundus. [facility] [employer] Work Phone: [facility] [employer] Phone: Radiology Study observation (narrative) [facility] Phone: BMPon 05-09-2022 Anion gap [Moles/Vol] 16 mmol/L 9 - 17 mmol/L [employer] Calcium [Mass/Vol] 10.4 mg/dL 8.6 - 10. 4 mg/dL [facility] Chloride [Moles/Vol] 99 mmol/L 98 - 10 7 mmol/L [facility] CO2 [Moles/Vol] 24 mmol/L 20 - 31 mmol/L [facility] Creatinine [Mass/Vol] 1.71 mg/dL High 0.70 - 1.20 mg/dL [facility] GFR/1.73 sq M.predicted MDRD (S/P/Bld) [Vol rate/Area] 44 mL/min/{1.73_m2} Low - PINF [facility] Comment on above: These results are not [...] 125 mg/dL High 70 - 99 mg/dL [facility] Potassium [Moles/Vol] 4.0 mmol/L 3.7 - 5.3 mmol/L [facility] Sodium [Moles/Vol] 139 mmol/L 135 - 144 mmol/L [facility] Urea nitrogen [Mass/Vol] 34 mg/dL High 8 - 23 mg/dL [facility] Urea nitrogen/Creatinine (Bld) [Mass ratio] 20 9 - 20 [facility] Basic Metabolic Profon 05-09 Anion gap [Moles/Vol] 16 mmol/L Normal 9-[address] [facility] Comment on above: Performed By: #### C DP, CMPX #### [facility] [address] [place] [address] Program Planner: David Montez MD BUN/CRE Ratio 20 Normal 9-20 [facility] Comment on above: Performed By: #### C DP, CMPX #### [facility] [address] [place] [address] Program Planner: David Montez MD Calcium [Mass/Vol] 10.4 mg/dL Normal 8.6-10.4 [facility] Comment on above: Performed By: #### C DP, CMPX #### [facility] [address] [place], [place] 4419383 Program Planner: David Montez MD Chloride [Moles/Vol] 99 mmol/L Normal 98-107 [facility] Comment on above: Performed By: #### C DP, CMPX #### [facility] [address] [place], [place] [id number] Program Planner: David Montez MD CO2 [Moles/Vol] 24 mmol/L Normal 20-31 [facility] Comment on above: Performed By: #### C DP, CMPX #### [facility] [address] [place], [place] 4864383 Program Planner: David Montez MD Creatinine [Mass/Vol] 1.71 mg/dL High 0.70-1.[address] [facility] Comment on above: Performed By: #### C DP, CMPX #### [facility] [address] [place], [place] [phone] Program Planner: David Montez MD GFR/1.73 sq M.predicted among non-blacks MDRD (S/P/Bld) [Vol rate/Area] 44 mL/min/{1.73_m2} Low >60 [facility] Comment on above: Result Comment: These [...] Performed By: #### C DP, CMPX #### [facility] [address] [place] [address] Program Planner: David Montez MD Glucose [Mass/Vol] 125 mg/dL High 70-99 [facility] Comment on above: Performed By: #### C DP, CMPX #### [facility] [address] [place], [place] [phone] Program Planner: David Montez MD Potassium [Moles/Vol] 4.0 mmol/L Normal 3.7-5.[address] [facility] Comment on above: Performed By: #### C DP, CMPX #### [facility] [address] [place], [place] 3634683 Program Planner: David Montez MD Sodium [Moles/Vol] 139 mmol/L Normal 135-144 [facility] Comment on above: Performed By: #### C DP, CMPX #### [facility] [address] [place], [place] 2405483 Program Planner: David Montez MD Urea nitrogen [Mass/Vol] 34 mg/dL High 8-23 [facility] Comment on above: Performed By: #### C DP, CMPX #### [facility] [address] [place], [place] 4586983 Program Planner: David Montez MD CBC auto differentialon 030 Absolute Eos # [facility] Absolute Immature Granulocyte 0.05 [facility] Absolute Lymph # 1.88 [facility] URS [facility] Absolute Prowers # 1.00 [facility] Basophils (Bld) [#/Vol] 0.03 10*3/uL [facility] Basophils/100 WBC (Bld) 0 % 0 - 2 % [facility] Eosinophils/100 WBC (Bld) 0 % Low 1 - 4 % [facility] Hematocrit (Bld) [Volume fraction] 43.7 % 40.7 - 50.3 % [facility] Hemoglobin (Bld) [Mass/Vol] 14.8 g/dL 13.0 - 17.0 g/dL [facility] Immature granulocytes/100 WBC (Bld) 0 % 0 [facility] Interpretation and review of laboratory results Abnormal [facility] Lymphocytes/100 WBC (Bld) 15 % Low 24 - 43 % [facility] MCH (RBC) [Entitic mass] 33.6 pg High 25.2 - 33.5 pg [facility] MCHC (RBC) [Mass/Vol] 33.9 g/dL 28.4 - 34.8 g/dL [facility] MCV (RBC) [Entitic vol] 99.1 fL 82.6 - 102.9 fL [facility] Monocytes/100 WBC (Bld) 8 % 3 - 12 % [facility] NRBC Automated 0.0 0.0 per 100 WBC [facility] Platelet distribution width (Bld) [Ratio] 12.9 % 11.8 - 14.4 % [facility] Platelet mean volume (Bld) [Entitic vol] 9.3 fL 8.1 - 13.5 fL [facility] Platelets (Bld) [#/Vol] 285 10*3/uL [facility] RBC (Bld) [#/Vol] 4.41 10*6/uL 4.21 - 5.7 7 m/uL [facility] Segmented neutrophils/100 WBC (Bld) 77 % High 36 - 65 % [facility] Segs Absolute 9.73 High [facility] WBC (Bld) [#/Vol] 12.7 10*3/uL High [facility] CBC with Diffon 05-09-2022 Abs. Basophil 0.03 k/uL Normal 0.00-0.20 [facility] Comment on above: Performed By: #### R ANNE MARIE, YULIYA, CDP #### [facility] [address] [place] [address] Program Planner: David Montez MD Abs. Eosinophil <0.03 Normal 0.00-0.44 [facility] Comment on above: Performed By: #### R ANNE MARIE, YULIYA, CDP #### [facility] [address] [place] [address] Program Planner: David Montez MD Abs.Imm.Granulocyte 0.05 k/uL Normal 0.00-0.30 [facility] Comment on above: Performed By: #### YULIYA COUGHLIN, CDP #### [address] [place] [address] Program Planner: David Montez MD Abs.Neutrophil (Seg) 9.73 k/uL High 1.50-8.10 [facility] Comment on above: Performed By: #### YULIYA COUGHLIN, CDP #### [address] [place], [facility]83 Program Planner: David Montez MD Basophils/100 WBC (Bld) 0 % Normal 0-2 [facility] Comment on above: Performed By: #### YULIYA COUGHLIN, CDP #### [address] [place], [facility]83 Program Planner: David Montez MD Eosinophils/100 WBC (Bld) 0 % Low 1-4 [facility] Comment on above: Performed By: #### YULIYA COUGHLIN, CDP #### [address] [place], [facility]83 Program Planner: David Monetz MD Erythrocyte distribution width (RBC) [Ratio] 12.9 % Normal 11.8-14.4 [facility] Comment on above: Performed By: #### YULIYA COUGHLIN, CDP #### [address] [place], [facility]83 Program Planner: David Montez MD Hematocrit (Bld) [Volume fraction] 43.7 % Normal 40.7-50.3 [facility] Comment on above: Performed By: #### YULIYA COUGHLIN, CDP #### [address] [place] [address] Program Planner: David Montez MD Hemoglobin (Bld) [Mass/Vol] 14.8 g/dL Normal 13.0-17.0 [facility] Comment on above: Performed By: #### YULIYA COUGHLIN, CDP #### [facility] [address] [place] [address] Dr[place], [place] [address] Program Planner: David Montez MD Immature granulocytes/100 WBC (Bld) 0 % Normal 0 [facility] Comment on above: Performed By: #### YULIYA COUGHLIN, CDP #### [address] [place], [place] [address] Program Planner: David Montez MD Lymphocytes (Bld) [#/Vol] 1.88 10*3/uL Normal 1.10-3.70 [facility] Comment on above: Performed By: #### YULIYA COUGHLIN, CDP #### [address] [place] [address] Program Planner: David Montez MD Lymphocytes/100 WBC (Bld) 15 % Low 24-43 [facility] Comment on above: Performed By: #### YULIYA COUGHLIN, CDP #### [address] [place], [place] [address] Program Planner: David Montez MD MCH (RBC) [Entitic mass] 33.6 pg High 25.2-33.5 [facility] Comment on above: Performed By: #### YULIYA COUGHLIN, CDP #### [address] [place], [facility]83 Program Planner: David Montez MD MCHC (RBC) [Mass/Vol] 33.9 g/dL Normal 28.4-34.[address] [facility] Comment on above: Performed By: #### YULIYA COUGHLIN, CDP #### [address] [place], [facility]83 Program Planner: David Montez MD MCV (RBC) [Entitic vol] 99.1 fL Normal 82.6-102.9 [facility] Comment on above: Performed By: #### R ANNE MARIE, IPF, CDP #### [facility] [address] [place], [place] [id number] Program Planner: David Montez MD Monocytes (Bld) [#/Vol] 1.00 10*3/uL Normal 0.10-1.20 [facility] Comment on above: Performed By: #### R ANNE MARIE IPF, CDP #### [facility] [address] [place], [place] [address]83 Program Planner: David Montez MD Monocytes/100 WBC (Bld) 8 % Normal 3-12 [facility] Comment on above: Performed By: #### R ANNE MARIE IPF, CDP #### [facility] [address] [place], [facility]83 Program Planner: David Montez MD Neutrophil (Seg) 77 % High 36-65 [facility] Comment on above: Performed By: #### R ANNE MARIE IPF, CDP #### [facility] [address] [place], [place] [id number] Program Planner: David Montez MD NRBC Automated 0.0 per 100 WBC Normal 0.0 [facility] Comment on above: Performed By: #### R ANNE MARIE IPF, CDP #### [facility] [address] [address] [place], [facility]83 Program Planner: David Montez MD Platelet mean volume (Bld) [Entitic vol] 9.3 fL Normal 8.1-13.5 [facility] Comment on above: Performed By: #### R ANNE MARIE IPF, CDP #### [facility] [address] [place] [address] Program Planner: David Montez MD Platelets (Bld) [#/Vol] 285 10*3/uL Normal 138-453 [facility] Comment on above: Performed By: #### R EJRELL IPF, CDP #### [facility] [address] [place], [place] [id number] Program Planner: David Montez MD RBC (Bld) [#/Vol] 4.41 10*6/uL Normal 4.21-5.77 [facility] Comment on above: Performed By: #### R ANNE MARIE, IPF, CDP #### [facility] [address] [place], [place] [address] Program Planner: David Montez MD WBC (Bld) [#/Vol] 12.7 10*3/uL High 3.5-11.3 [facility] Comment on above: Performed By: #### R ANNE MARIE, IPF, CDP #### [address] [place], [facility]83 Program Planner: David Montez MD Abs. Basophil 0.05 k/uL Normal 0.00-0.20 [facility] Comment on above: Performed By: #### C DP, CMPX #### [address] [place], [facility]83 Program Planner: David Montez MD Abs. Eosinophil <0.03 Normal 0.00-0.44 [facility] Comment on above: Performed By: #### C DP, CMPX #### [address] [place], [facility]83 Program Planner: David Montez MD Abs.Imm.Granulocyte 0.06 k/uL Normal 0.00-0.30 [facility] Comment on above: Performed By: #### C DP, CMPX #### [address] [place], [facility]83 Program Planner: David Montez MD Abs.Neutrophil (Seg) 12.89 k/uL High 1.50-8.10 [facility] Comment on above: Performed By: #### C DP, CMPX #### [address] [place], [facility]83 Program Planner: David Montez MD Basophils/100 WBC (Bld) 0 % Normal 0-2 [facility] Comment on above: Performed By: #### C DP, CMPX #### [facility] [address] [place], [place] [id number] Program Planner: David Montez MD Eosinophils/100 WBC (Bld) 0 % Low 1-4 [facility] Comment on above: Performed By: #### C DP, CMPX #### [address] [place] [address] Program Planner: David Montez MD Erythrocyte distribution width (RBC) [Ratio] 12.9 % Normal 11.8-14.4 [facility] Comment on above: Performed By: #### C DP, CMPX #### [address] [place], [place] 7137983 Program Planner: David Montez MD Hematocrit (Bld) [Volume fraction] 43.1 % Normal 40.7-50.3 [facility] Comment on above: Performed By: #### C DP, CMPX #### [address] [place], [place] [id number] Program Planner: David Montez MD Hemoglobin (Bld) [Mass/Vol] 14.9 g/dL Normal 13.0-17.0 [facility] Comment on above: Performed By: #### C DP, CMPX #### [facility] [address] [place] [address] Dr. [place], [place] [address]241983 Program Planner: David Montez MD Immature granulocytes/100 WBC (Bld) 0 % Normal 0 [facility] Comment on above: Performed By: #### C DP, CMPX #### [address] [place], [place] 2974383 Program Planner: David Montez MD Lymphocytes (Bld) [#/Vol] 1.30 10*3/uL Normal 1.10-3.70 [facility] Comment on above: Performed By: #### C DP, CMPX #### [address] [place] [address] Program Planner: David Montez MD Lymphocytes/100 WBC (Bld) 9 % Low 24-43 [facility] Comment on above: Performed By: #### C DP, CMPX #### [address] [place], [place] 1929183 Program Planner: David Montez MD MCH (RBC) [Entitic mass] 33.9 pg High 25.2-33.5 [facility] Comment on above: Performed By: #### C DP, CMPX #### [address] [place], [place] 5104683 Program Planner: David Montez MD MCHC (RBC) [Mass/Vol] 34.6 g/dL Normal 28.4-34.[address] [facility] Comment on above: Performed By: #### C DP, CMPX #### [address] [place], [place] 9669683 Program Planner: David Montez MD MCV (RBC) [Entitic vol] 98.0 fL Normal 82.6-102.9 [facility] Comment on above: Performed By: #### C DP, CMPX #### [address] [place], [place] 0980183 Program Planner: David Montez MD Monocytes (Bld) [#/Vol] 0.58 10*3/uL Normal 0.10-1.20 [facility] Comment on above: Performed By: #### C DP, CMPX #### [address] [place] [address] Program Planner: David Montez MD Monocytes/100 WBC (Bld) 4 % Normal 3-12 [facility] Comment on above: Performed By: #### C DP, CMPX #### [facility] [address] [place], [place] 7189483 Program Planner: David Montez MD Neutrophil (Seg) 87 % High 36-65 [facility] Comment on above: Performed By: #### C DP, CMPX #### [facility] [address] [place], [place] 1400083 Program Planner: David Montez MD NRBC Automated 0.0 per 100 WBC Normal 0.0 [facility] Comment on above: Performed By: #### C DP, CMPX #### [facility] [address] [place], [place] 8602483 Program Planner: David Montez MD Platelet mean volume (Bld) [Entitic vol] 9.2 fL Normal 8.1-13.5 [facility] Comment on above: Performed By: #### C DP, CMPX #### [facility] [address] [place], [place] 2679683 Program Planner: David Montez MD Platelets (Bld) [#/Vol] 305 10*3/uL Normal 138-453 [facility] Comment on above: Performed By: #### C DP, CMPX #### [address] [place], [place] 3844483 Program Planner: David Montez MD RBC (Bld) [#/Vol] 4.40 10*6/uL Normal 4.21-5.77 [facility] Comment on above: Performed By: #### C DP, CMPX #### [facility] [address] [place], [place] [phone] Program Planner: David Montez MD WBC (Bld) [#/Vol] 14.9 10*3/uL High 3.5-11.3 [facility] Comment on above: Performed By: #### C DP, CMPX #### [facility] [address] [place], [place] 9881683 Program Planner: David Montez MD Comp Metabolic Pr/rfx MGon 0 - Albumin [Mass/Vol] 4.7 g/dL Normal 3.5-5.2 [facility] Comment on above: Performed By: #### C DP, BMPX #### [facility] [address] [place], [place] [id number] Program Planner: David Montez MD Albumin/Glob Ratio 1.2 Normal 1.0-2.5 [facility] Comment on above: Performed By: #### C DP, BMPX #### [facility] [address] [place], [place] 0128183 Program Planner: David Montez MD Alkaline Phos 172 U/L High 40-129 [facility] Comment on above: Performed By: #### C DP, BMPX #### [facility] [address] [place], [place] 9627983 Program Planner: David Montez MD ALT [Catalytic activity/Vol] 14 U/L Normal 5-41 [facility] Comment on above: Performed By: #### C DP, BMPX #### [facility] [address] [place], [place] 6516283 Program Planner: David Montez MD Anion gap [Moles/Vol] 12 mmol/L Normal 9-[address] [facility] Comment on above: Performed By: #### C DP, BMPX #### [facility] [address] [place], [place] 6560283 Program Planner: David Montez MD AST [Catalytic activity/Vol] 16 U/L Normal <40 [facility] Comment on above: Performed By: #### C DP, BMPX #### [facility] [address] [place], [place] 2212783 Program Planner: David Montez MD Bilirubin [Mass/Vol] 0.6 mg/dL Normal 0.3-1.2 [facility] Comment on above: Performed By: #### C DP, BMPX #### [facility] [address] [place], [place] 7352183 Program Planner: David Montez MD BUN/CRE Ratio 23 High 9-20 [facility] Comment on above: Performed By: #### C DP, BMPX #### [facility] [address] [place], [place] 7212883 Program Planner: David Montez MD Calcium [Mass/Vol] 10.7 mg/dL High 8.6-10.4 [facility] Comment on above: Performed By: #### C DP, BMPX #### [facility] [address] [place], [place] 1325383 Program Planner: David Montez MD Chloride [Moles/Vol] 99 mmol/L Normal 98-107 [facility] Comment on above: Performed By: #### C DP, BMPX #### [facility] [address] [place], [place] 5055983 Program Planner: David Montez MD CO2 [Moles/Vol] 32 mmol/L High 20-31 [facility] Comment on above: Performed By: #### C DP, BMPX #### [facility] [address] [place], [place] 6187983 Program Planner: David Montez MD Creatinine [Mass/Vol] 1.72 mg/dL High 0.70-1.[address] [facility] Comment on above: Performed By: #### C DP, BMPX #### [facility] [address] [place] [address] Program Planner: David Montez MD GFR/1.73 sq M.predicted among non-blacks MDRD (S/P/Bld) [Vol rate/Area] 43 mL/min/{1.73_m2} Low >60 [facility] Comment on above: Result Comment: These [...] Performed By: #### C DP, BMPX #### [facility] [address] [place] [address] [place] [address] Program Planner: David Montez MD Glucose [Mass/Vol] 120 mg/dL High 70-99 [facility] Comment on above: Performed By: #### C DP, BMPX #### [address] [place], [place] 2774683 Program Planner: David Montez MD Potassium [Moles/Vol] 4.3 mmol/L Normal 3.7-5.[address] [facility] Comment on above: Performed By: #### C DP, BMPX #### [address] [place] [address] Program Planner: David Montez MD Protein [Mass/Vol] 8.6 g/dL High 6.4-8.3 [facility] Comment on above: Performed By: #### C DP, BMPX #### [address] [place] [address] Program Planner: David Montez MD Sodium [Moles/Vol] 143 mmol/L Normal 135-144 [facility] Comment on above: Performed By: #### C DP, BMPX #### [address] [place] [address] Program Planner: David Montez MD Urea nitrogen [Mass/Vol] 39 mg/dL High 8-23 [facility] Comment on above: Performed By: #### C DP, BMPX #### [facility] [address] [place] [address] Program Planner: David Montez MD Comprehensive Metabolic Pane l w/ Reflex to MGon 05-09-2022 Albumin [Mass/Vol] 4.7 g/dL 3.5 - 5.2 g/dL [facility] Albumin/Globulin [Mass ratio] 1.2 {ratio} 1.0 - 2.5 [facility] ALP [Catalytic activity/Vol] 172 U/L High 40 - 129 U/L [facility] ALT [Catalytic activity/Vol] 14 U/L 5 - 41 U/L [facility] Anion gap [Moles/Vol] 12 mmol/L 9 - 17 mmol/L [facility] AST [Catalytic activity/Vol] 16 U/L NINF - 40 U/L [facility] Bilirubin [Mass/Vol] 0.6 mg/dL 0.3 - 1 .2 mg/dL [facility] Calcium [Mass/Vol] 10.7 mg/dL High 8.6 - 10. 4 mg/dL [facility] Chloride [Moles/Vol] 99 mmol/L 98 - 10 7 mmol/L [facility] CO2 [Moles/Vol] 32 mmol/L High 20 - 31 mmol/L [facility] Creatinine [Mass/Vol] 1.72 mg/dL High 0.70 - 1.20 mg/dL [facility] GFR/1.73 sq M.predicted MDRD (S/P/Bld) [Vol rate/Area] 43 mL/min/{1.73_m2} Low - PINF [facility] Comment on above: These results are not [...] 120 mg/dL High 70 - 99 mg/dL [facility] Interpretation and review of laboratory results Abnormal [facility] Potassium [Moles/Vol] 4.3 mmol/L 3.7 - 5.3 mmol/L [facility] Protein [Mass/Vol] 8.6 g/dL High 6.4 - 8.3 g/dL [facility] Sodium [Moles/Vol] 143 mmol/L 135 - 144 mmol/L [facility] Urea nitrogen [Mass/Vol] 39 mg/dL High 8 - 23 mg/dL [facility] Urea nitrogen/Creatinine (Bld) [Mass ratio] 23 High 9 - 20 [facility] Hepatic Function Panelon Albumin [Mass/Vol] 4.6 g/dL 3.5 - 5.2 g/dL [facility] Albumin/Globulin [Mass ratio] 1.1 {ratio} 1.0 - 2.5 [facility] ALP [Catalytic activity/Vol] 176 U/L High 40 - 129 U/L [facility] ALT [Catalytic activity/Vol] 15 U/L 5 - 41 U/L [facility] AST [Catalytic activity/Vol] 15 U/L NINF - 40 U/L [facility] Bilirubin [Mass/Vol] 0.4 mg/dL 0.3 - 1 .2 mg/dL [facility] Bilirubin.direct [Mass/Vol] mg/dL NINF - 0.3 mg/dL [facility] Bilirubin.indirect [Mass/Vol] Can not be calculated 0.0 - 1.0 mg/dL [facility] Protein [Mass/Vol] 8.8 g/dL High 6.4 - 8.3 g/dL [facility] Lactic Acidon 05-09-2022 Lactate [Moles/Vol] 1.5 mmol/L Normal 0.5-2.2 [facility] Comment on above: Performed By: #### C DP, CMPX #### [facility] [address] [place] [address] Program Planner: David Montez MD Lactate (P simon) [Moles/Vol] 1.5 mmol/L 0.5 - 2.2 mmol/L [facility] Lipaseon 05-09-2022 Lipase [Catalytic activity/Vol] 46 U/L Normal 13-60 [facility] Comment on above: Performed By: #### C DP, CMPX #### [facility] [address] [place], [place] [id number] Program Planner: David Montez MD Lipase [Catalytic activity/Vol] 46 U/L 13 - 60 U/L [facility] Liver Profileon 05-09-2022 Albumin [Mass/Vol] 4.6 g/dL Normal 3.5-5.2 [facility] Comment on above: Performed By: #### C DP, CMPX #### [facility] [address] [place], [place] 1414783 Program Planner: David Montez MD Albumin/Glob Ratio 1.1 Normal 1.0-2.5 [facility] Comment on above: Performed By: #### C DP, CMPX #### [facility] [address] [place] [address] Program Planner: David Montez MD Alkaline Phos 176 U/L High 40-129 [facility] Comment on above: Performed By: #### C DP, CMPX #### [facility] [address] [place], [place] 6641183 Program Planner: David Montez MD ALT [Catalytic activity/Vol] 15 U/L Normal 5-41 [facility] Comment on above: Performed By: #### C DP, CMPX #### [facility] [address] [place] [address] Program Planner: David Montez MD AST [Catalytic activity/Vol] 15 U/L Normal <40 [facility] Comment on above: Performed By: #### C DP, CMPX #### [facility] [address] [place], [place] 9461183 Program Planner: David Montez MD Bilirubin [Mass/Vol] 0.4 mg/dL Normal 0.3-1.2 [facility] Comment on above: Performed By: #### C DP, CMPX #### [facility] [address] [place] [address] [place] [place], [place] 1206783 Program Planner: David Montez MD Bilirubin, Indirect Can not be calculated Normal 0.0-1.0 [facility] Comment on above: Performed By: #### C DP, CMPX #### [facility] [address] [place] [address] Dr[address] [place], [place] [phone] Program Planner: David Montez MD Bilirubin.indirect [Mass/Vol] mg/dL Normal <0.3 [facility] Comment on above: Performed By: #### C DP, CMPX #### [address] [place], [place] 1180983 Program Planner: David Montez MD Protein [Mass/Vol] 8.8 g/dL High 6.4-8.3 [facility] Comment on above: Performed By: #### C DP, CMPX #### [address] [place], [place] 6793683 Program Planner: David Montez MD Magnesiumon 05-09-2022 Magnesium [Mass/Vol] 1.9 mg/dL Normal 1.6-2.6 [facility] Comment on above: Performed By: #### C DP, CMPX #### [facility] [address] [place] [address] [place] [address] Program Planner: David Montez MD Magnesium [Mass/Vol] 1.9 mg/dL 1.6 - 2 .6 mg/dL [facility] No Panel Informationon 05-09 Interpretation and review of laboratory results Abnormal [facility] XR ABDOMEN (KUB) (SINGLE AP VIEW)on 05-09-2022 [...] Toby Lofton MD 05/09/22 Final result Normal [facility] Dilated air-filled loops of bowel concerning for degree of obstruction. Gastric tube with the tip in the gastric fundus. [facility] CONSOLIDATED EXAMINATION: ONE SUPINE [...] abnormality. The surrounding soft tissues are unremarkable. [facility] CONSOL[facility] Toby Lofton MD [...] with the tip in the gastric fundus. [facility]: Radiology Study observation (narrative) [facility] Via Phone: XR ABDOMEN (KUB) (SINGLE AP VIEW) [...] Geovany Dove MD 05/09/22 Final result Normal [facility] Multiple dilated small bowel loops, ileus versus small-bowel obstruction. The stomach is distended with intraluminal air. [facility] RIS CONSOLIDATED EXAMINATION: ONE SUPINE XRAY VIEW(S) OF THE ABDOMEN 05/09/2022 12:48 am COMPARISON: Abdominal x-ray 10/28/2013. HISTORY: ORDERING SYSTEM PROVIDED HISTORY: SBO TECHNOLOGIST PROVIDED HISTORY: SBO FINDINGS: Multiple dilated small bowel loops containing intraluminal air, ileus versus small-bowel obstruction. The stomach is distended with intraluminal air. Lower lungs are clear. No free air. Bony structures are unremarkable. [facility] CON[facility] Geovany Dove MD [...] The stomach is distended with intraluminal air. [employer] Phone: Radiology Study observation (narrative) [employer] Phone: XR ABDOMEN (KUB) (SINGLE AP VIEW)Ordered By: Toby Lofton on 05-09-2022 [employer] Phone: XR ABDOMEN (KUB) (SINGLE AP VIEW)Ordered By: Geovany Dove on 05-09-2022 LIVE T[facility] [employer] Work Phone: XR ABDOMEN FOR NG/OG/NE TUBE [...] Geovany Dove MD 05/09/22 Final result Normal [facility] Tip of the enteric tube projects over the gastric body, side port projects over the gastric body. Partially imaged bowel loops are dilated, similar to prior. [facility] RIS CONSOLIDATED EXAMINATION: ONE SUPINE XRAY VIEW(S) [...] matta are clear. Bony structures are unremarkable. [facility] CONSOL[facility] Geovany Dove MD - 05/09/2022 EXAMINATION: [...] bowel loops are dilated, similar to prior. [facility] Work Phone: [facility] Work Phone: Radiology Study observation (narrative) [facility] Work Phone: CBC with Auto Differentialon 05-08-2022 Absolute Eos # [place] [facility] Absolute Immature Granulocyte 0.06 [facility] Absolute [facility] # [facility] Absolute Prowers # 0[facility] Basophils (Bld) [#/Vol] 0.05 10*3/uL [facility] Basophils/100 WBC (Bld) 0 % 0 - 2 % [facility] Eosinophils/100 WBC (Bld) 0 % Low 1 - 4 % [facility] Hematocrit (Bld) [Volume fraction] 43.1 % 40.7 - 50.3 % [facility] Hemoglobin (Bld) [Mass/Vol] 14.9 g/dL 13.0 - 17.0 g/dL [facility] Immature granulocytes/100 WBC (Bld) 0 % 0 [facility] Interpretation and review of laboratory results Abnormal [facility] Lymphocytes/100 WBC (Bld) 9 % Low 24 - 43 % [facility] MCH (RBC) [Entitic mass] 33.9 pg High 25.2 - 33.5 pg [facility] MCHC (RBC) [Mass/Vol] 34.6 g/dL 28.4 - 34.8 g/dL [facility] MCV (RBC) [Entitic vol] 98.0 fL 82.6 - 102.9 fL [facility] Monocytes/100 WBC (Bld) 4 % 3 - 12 % [facility] NRBC Automated 0.0 0.0 per 100 WBC [facility] Platelet distribution width (Bld) [Ratio] 12.9 % 11.8 - 14.4 % [facility] Platelet mean volume (Bld) [Entitic vol] 9.2 fL 8.1 - 13.5 fL [facility] Platelets (Bld) [#/Vol] 305 10*3/uL [facility] RBC (Bld) [#/Vol] 4.40 10*6/uL 4.21 - 5.7 7 m/uL [facility] Segmented neutrophils/100 WBC (Bld) 87 % High 36 - 65 % [facility] Segs Absolute 12.89 High [facility] WBC (Bld) [#/Vol] 14.9 10*3/uL High [facility] Cult,Urineon 05-06-2022 Cult,Urine Specimen Description .VOIDED URINE Culture NO GROWTH Report Status FINAL 05/06/2022 Normal [facility] Comment on above: Performed By: #### R YULIYA KENNEY, CDP #### [facility] [address] [place] [address] Program Planner: David Montez MD Microscopic Urinalysison Amorphous, UA TRACE Abnormal None [facility] Bacteria, UA 1+ Abnormal None [facility] Epithelial Cells UA None [facility] Interpretation and review of laboratory results Abnormal [facility] RBC clumps Auto (Urine sed) [#/Area] None [facility] WBC, UA None [facility] UA w/Reflex Cultureon 2022 Bilirubin, SemiQt,Ur Negative Normal NEG [facility] Comment on above: Performed By: #### R YULIYA KENNEY, CDP #### [facility] [address] [place] [address] Program Planner: David Montez MD Blood, Urine Negative Normal NEG [facility] Comment on above: Performed By: #### R ANNE MARIE IPF, CDP #### [facility] [address] [place] [address] [place] [place], [place] [id number] Program Planner: David Montez MD Clarity (U) Clear Normal CLEAR [facility] Comment on above: Performed By: #### R ANNE MARIE IPF, CDP #### [facility] [address] [place] [address] [place] [place], [place] [phone] Program Planner: David Montez MD Color (U) Yellow Normal YEL [facility] Comment on above: Performed By: #### R ANNE MARIE IPF, CDP #### [address] [place], [place] 1154583 Program Planner: David Montez MD Glucose Ql (U) Negative Normal NEG [facility] in Hospital Comment on above: Performed By: #### R ANNE MARIE IPF, CDP #### [facility] [address] [place] [address] [place] [place], [place] [id number] Program Planner: David Montez MD Ketones Ql (U) Negative Normal NEG [facility] in Hospital Comment on above: Performed By: #### R ANNE MARIE IPF, CDP #### [address] [place] [address] Program Planner: David Montez MD Leukocyte esterase Test strip Ql (U) Negative Normal NEG [facility] Comment on above: Performed By: #### R ANNE MARIE IPF, CDP #### [facility] [address] [place] [address] [place] [place], [place] [phone] Program Planner: David Montez MD Nitrite,Ur Negative Normal NEG [facility] Comment on above: Performed By: #### R ANNE MARIE IPF, CDP #### [facility] [address] [place], [place] 3306983 Program Planner: David Montez MD PH,Ur 6.5 Normal 5.0-9.0 [facility] Comment on above: Performed By: #### R ANNE MARIE IPF, CDP #### [facility] [address] [place], [place] 1167483 Program Planner: David Montez MD Protein Ql (U) Negative Normal NEG [facility] Comment on above: Performed By: #### R YULIYA KENNEY, CDP #### [facility] [address] [place], [place] [id number] Program Planner: David Montez MD Spec. [place],Ur 1.020 Normal 1.010-1.020 [facility] Comment on above: Performed By: #### YULIYA COUGHLIN, CDP #### [facility] [address] [place] [address] [place]. [place], [place] [id number] Program Planner: David Montez MD Urobilinogen,Ur Normal Normal NORM [facility] Comment on above: Performed By: #### R YULIYA KENNEY, CDP #### [facility] [address] [place], [place] [id number] Program Planner: David Montez MD Urinalysis with Reflex to Cu ltureon 05-05-2022 Bilirubin Urine Negative NEGATIVE [facility] Color, UA Yellow Yellow [facility] Glucose Auto test strip (U) [Mass/Vol] Negative NEGATIVE [facility] Ketones (U) [Mass/Vol] Negative NEGATIVE [facility] Leukocyte esterase Auto test strip Ql (U) Negative NEGATIVE [facility] Nitrite Auto test strip Ql (U) Negative NEGATIVE [facility] Protein (U) [Mass/Vol] 6.5 mg/dL 5.0 - 9.0 [facility] Protein (U) [Mass/Vol] Negative NEGATIVE [facility] Specific [place], UA 1.020 1.010 - 1.020 [facility] Turbidity UA Clear Clear [facility] Urine Hgb Negative NEGATIVE [facility] Urobilinogen, Urine Normal Normal [facility] Urinalysis,Microon 3 Amorphous sediment LM Ql (Urine sed) TRACE Abnormal NONE [facility] Comment on above: Performed By: #### R YULIYA KENNEY, CDP #### [facility] [address] [place], [place] [id number] Program Planner: David Montez MD Bacteria 1+ Abnormal NONE [facility] Comment on above: Performed By: #### R YULIYA KENNEY, CDP #### [facility] [address] [place] [address] Program Planner: David Montez MD Epithelial cells LM Ql (Urine sed) None Normal [address] [place] [address] Comment on above: Performed By: #### YULIYA COUGHLIN, CDP #### [facility] [address] [place] [address] [place], [place] [id number] Program Planner: David Montez MD Urine RBC's None Normal [address] Comment on above: Performed By: #### YULIYA COUGHLIN, CDP #### [facility] [address] [place], [place] [id number] Program Planner: David Montez MD Urine WBC's None Normal [address] [place] [address] Comment on above: Performed By: #### R YULIYA KENNEY, CDP #### [facility] [address] [place], [facility] Program Planner: David Montez MD CBC with Auto Differentialon 03-22-2022 Absolute Eos # 0.16 [facility] Absolute Immature Granulocyte [facility] Absolute Lymph # 1.71 [facility] Absolute Prowers # 0.29 [facility] Basophils (Bld) [#/Vol] 0.05 10*3/uL [facility] Basophils/100 WBC (Bld) 1 % 0 - 2 % [facility] Eosinophils/100 WBC (Bld) 2 % 1 - 4 % [facility] Hematocrit (Bld) [Volume fraction] 39.3 % Low 40.7 - 50.3 % [facility] Hemoglobin (Bld) [Mass/Vol] 12.6 g/dL Low 13.0 - 17.0 g/dL [facility] Immature granulocytes/100 WBC (Bld) 0 % 0 [facility] Interpretation and review of laboratory results Abnormal [facility] Lymphocytes/100 WBC (Bld) 24 % 24 - 43 % [facility] MCH (RBC) [Entitic mass] 32.5 pg 25.2 - 33.5 pg [facility] MCHC (RBC) [Mass/Vol] 32.1 g/dL 28.4 - 34.8 g/dL [facility] MCV (RBC) [Entitic vol] 101.3 fL 82.6 - 102.9 fL [facility] Monocytes/100 WBC (Bld) 4 % 3 - 12 % [facility] NRBC Automated 0.0 0.0 per 100 WBC [facility] Platelet distribution width (Bld) [Ratio] 12.2 % 11.8 - 14.4 % [facility] Platelet mean volume (Bld) [Entitic vol] 9.2 fL 8.1 - 13.5 fL [facility] Platelets (Bld) [#/Vol] 206 10*3/uL [facility] RBC (Bld) [#/Vol] 3.88 10*6/uL Low 4.21 - 5.7 7 m/uL [facility] Segmented neutrophils/100 WBC (Bld) 69 % High 36 - 65 % [facility] Segs Absolute 4.99 [facility] WBC (Bld) [#/Vol] 7.2 10*3/uL [facility] Vitamin B12 & Folateon 03-22 Cobalamin (Vitamin B12) [Mass/Vol] 295 pg/mL 232 - 1245 pg/mL [facility] Folate 14.2 ng/mL 4.8 - PINF ng/mL [facility] Ammoniaon 02-08-2022 Ammonia (P) [Moles/Vol] 27 umol/L 16 - 60 umol/L [facility] Basic Metabolic Panelon 12-0 Anion gap [Moles/Vol] 8 mmol/L Low 9 - 17 mmol/L [facility] Calcium [Mass/Vol] 9.3 mg/dL 8.6 - 10. 4 mg/dL [facility] Chloride [Moles/Vol] 107 mmol/L 98 - 10 7 mmol/L [facility] CO2 [Moles/Vol] 28 mmol/L 20 - 31 mmol/L [facility] Creatinine [Mass/Vol] 1 mg/dL 0.70 - 1.20 mg/dL [facility] GFR/1.73 sq M.predicted MDRD (S/P/Bld) [Vol rate/Area] - PINF [facility] Comment on above: Effective Dec 05, 2021 [...] [Mass/Vol] 88 mg/dL 70 - 99 mg/dL [facility] Potassium [Moles/Vol] 4.9 mmol/L 3.7 - 5.3 mmol/L [facility] Sodium [Moles/Vol] 143 mmol/L 135 - 144 mmol/L [facility] Urea nitrogen (BldV) [Mass/Vol] 15 mg/dL 8 - 23 mg/dL [facility] Urea nitrogen/Creatinine (Bld) [Mass ratio] 15 9 - 20 [facility] CBC with Auto Differentialon 02-08-2022 Absolute [facility] # 0.19 [facility] Absolute Immature Granulocyte [facility] Absolute Lymph # 1.74 [facility] Absolute Prowers # 0.49 [facility] Basophils (Bld) [#/Vol] 0.03 10*3/uL [facility] Basophils/100 WBC (Bld) 1 % 0 - 2 % [facility] Eosinophils/100 WBC (Bld) 4 % 1 - 4 % [facility] Hematocrit (Bld) [Volume fraction] 37.3 % Low 40.7 - 50.3 % [facility] Hemoglobin (Bld) [Mass/Vol] 12.1 g/dL Low 13.0 - 17.0 g/dL [facility] Immature granulocytes/100 WBC (Bld) 0 % 0 [facility] Interpretation and review of laboratory results Abnormal [facility] Lymphocytes/100 WBC (Bld) 32 % 24 - 43 % [facility] MCH (RBC) [Entitic mass] 33.4 pg 25.2 - 33.5 pg [facility] MCHC (RBC) [Mass/Vol] 32.4 g/dL 28.4 - 34.8 g/dL [facility] MCV (RBC) [Entitic vol] 103.0 fL High 82.6 - 102.9 fL [facility] Monocytes/100 WBC (Bld) 9 % 3 - 12 % [facility] NRBC Automated 0.0 0.0 per 100 WBC [facility] Platelet distribution width (Bld) [Ratio] 12.9 % 11.8 - 14.4 % [facility] Platelet mean volume (Bld) [Entitic vol] 9.1 fL 8.1 - 13.5 fL [facility] Platelets (Bld) [#/Vol] 189 10*3/uL [facility] RBC (Bld) [#/Vol] 3.62 10*6/uL Low 4.21 - 5.7 7 m/uL [facility] Segmented neutrophils/100 WBC (Bld) 54 % 36 - 65 % [facility] Segs Absolute 2.91 [facility] WBC (Bld) [#/Vol] 5.4 10*3/uL [facility] Hepatic Function Panelon Albumin [Mass/Vol] 4 g/dL 3.5 - 5.2 g/dL [facility] Albumin/Globulin [Mass ratio] 1.3 {ratio} 1.0 - 2.5 [facility] ALP (Bld) [Catalytic activity/Vol] 140 U/L High 40 - 129 U/L [facility] ALT [Catalytic activity/Vol] 13 U/L 5 - 41 U/L [facility] AST [Catalytic activity/Vol] 13 U/L NINF - 40 U/L [facility] Bilirubin [Mass/Vol] 0.2 mg/dL Low 0.3 - 1 .2 mg/dL [facility] Bilirubin, Indirect Can not be calculated 0.0 - 1.0 mg/dL [facility] Bilirubin.indirect [Mass/Vol] mg/dL NINF - 0.3 mg/dL [facility] Protein [Mass/Vol] 7.1 g/dL 6.4 - 8.3 g/dL [facility] Lamotrigine Levelon 02-09-20 22 Lamotrigine Lvl 14 ug/mL 3.0 - 15.0 ug/mL [facility] Comment on above: Neither a therapeutic or [...] Multiple measurements of lamotrigine may be needed. [facility] Levetiracetam Levelon 2021 Levetiracetam Lvl 42 ug/mL [facility] Comment on above: A reference range for [...] serum concentrations and toxicity is not known. [facility] No Panel Informationon 02-08 Interpretation and review of laboratory results Abnormal [facility] Phenobarbital Levelon 2021 Interpretation and review of laboratory results Abnormal [facility] PHENobarbital [Mass/Vol] 13.9 ug/mL Low 15 - 40 ug/mL [facility] XR MODIFIED BARIUM SWALLOWon 10-04-2021 XR MODIFIED [...] by: LIZZ MCCOY Date: 2021-10-04 11:54 Normal [facility] BMPon 09-10-2021 Anion gap [Moles/Vol] 12 mmol/L 9 - 17 mmol/L [facility] Calcium [Mass/Vol] 9.3 mg/dL 8.6 - 10. 4 mg/dL [facility] Chloride [Moles/Vol] 103 mmol/L 98 - 10 7 mmol/L [facility] CO2 [Moles/Vol] 25 mmol/L 20 - 31 mmol/L [facility] Creatinine [Mass/Vol] 0.96 mg/dL 0.70 - 1.20 mg/dL [facility] GFR >60 >60 mL/min [facility] GFR Non- >60 >60 mL/min [facility] Glucose [Mass/Vol] 97 mg/dL 70 - 99 mg/dL [facility] Interpretation and review of laboratory results Abnormal [facility] Potassium [Moles/Vol] 4.3 mmol/L 3.7 - 5.3 mmol/L [facility] Sodium [Moles/Vol] 140 mmol/L 135 - 144 mmol/L [facility] Urea nitrogen (BldV) [Mass/Vol] 28 mg/dL High 8 - 23 mg/dL [facility] Urea nitrogen/Creatinine (Bld) [Mass ratio] 29 High [facility] CBC with Auto Differentialon 09-10-2021 Absolute [facility]os # 0.24 [facility] Absolute Immature Granulocyte <0.03 [facility] Absolute Lymph # 1.49 [facility] Absolute [facility]rowers # 0.81 [facility] Basophils (Bld) [#/Vol] 0.06 10*3/uL [facility] Basophils/100 WBC (Bld) 1 % 0 - 2 % [facility] Eosinophils/100 WBC (Bld) 3 % 1 - 4 % [facility] Hematocrit (Bld) [Volume fraction] 36.2 % Low 40.7 - 50.3 % [facility] Hemoglobin (Bld) [Mass/Vol] 11.5 g/dL Low 13.0 - 17.0 g/dL [facility] Immature granulocytes/100 WBC (Bld) 0 % 0 [facility] Interpretation and review of laboratory results Abnormal [facility] Lymphocytes/100 WBC (Bld) 19 % Low 24 - 43 % [facility] MCH (RBC) [Entitic mass] 31.8 pg 25.2 - 33.5 pg [facility] MCHC (RBC) [Mass/Vol] 31.8 g/dL 28.4 - 34.8 g/dL [facility] MCV (RBC) [Entitic vol] 100.0 fL 82.6 - 102.9 fL [facility] Monocytes/100 WBC (Bld) 10 % 3 - 12 % [facility] NRBC Automated 0.0 0.0 per 100 WBC [facility] Platelet distribution width (Bld) [Ratio] 13.3 % 11.8 - 14.4 % [facility] Platelet mean volume (Bld) [Entitic vol] 8.8 fL 8.1 - 13.5 fL [facility] Platelets (Bld) [#/Vol] 213 10*3/uL [facility] RBC (Bld) [#/Vol] 3.62 10*6/uL Low 4.21 - 5.7 7 m/uL [facility] Segmented neutrophils/100 WBC (Bld) 67 % High 36 - 65 % [facility] Segs Absolute 5.18 [facility] WBC (Bld) [#/Vol] 7.8 10*3/uL [facility] CT Head WO Contraston 2021 1. No acute abnormality is identified. 2. Stable appearing asymmetric atrophic change within the right cerebral hemisphere, with encephalomalacia of the right parietooccipital lobe and associated ex vacuo dilation of the right lateral ventricle, similar to the prior study. [facility] EXAMINATION: CT OF THE HEAD WITHOUT [...] of the visualized skull or soft tissues. [facility] David Miles MD - 09/10/2021 EXAMINATION: [...] lateral ventricle, similar to the prior study. St[facility] Phone: Radiology Study observation (narrative) Stem Phone: CT Head WO ContrastOrdered B y: David Miles on 09-10-2021 Stem Phone: Laboratory - Chemistry and C hemistry - challengeon 09-10-2021 GFR/1.73 sq M.predicted MDRD (S/P/Bld) [Vol rate/Area] [facility] Comment on above: Average GFR for 60-6 9 years old: 85 mL/min/1.73sq m Chronic Kidney Disease: <60 mL/min/1.73sq m Kidney failure: <15 mL/min/1.73sq m eGFR calculated using average adult body mass. Additional eGFR calculator available at: http://www.[employer]/multiple_crcl_2012.htm Stage 1: Some kidney damage normal GFR [...] 1 11 mmol/L [facility] CO2 [Moles/Vol] 22 mmol/L Normal 21 - 31 mmol/L [facility] Creatinine [Mass/Vol] 0.9 mg/dL Normal 0.5 - 1.3 mg/dL [facility] GFR/1.73 sq M.predicted among blacks MDRD (S/P/Bld) [Vol rate/Area] mL/min/1.73 m2 Normal >=59mL/min/ 1.73 m2 [facility] Chem S GFR/1.73 sq M.predicted among non-blacks MDRD (S/P/Bld) [Vol rate/Area] mL/min/1.73 m2 Normal >=59mL/min/ 1.73 m2 [facility] Chem S Glucose [Mass/Vol] 95 mg/dL Normal 55 - 199 mg/dL [facility] Potassium [Moles/Vol] 4.4 mmol/L Normal 3.5 - 5.3 mmol/L [facility] Sodium [Moles/Vol] 132 mmol/L Low 135 - 145 mmol/L [facility] Urea nitrogen [Mass/Vol] 13 mg/dL Normal 5 - 21 mg/dL [facility] Remisol Urea nitrogen/Creatinine [Mass ratio] 14 mg/mg [...] 33.8 g/dL Normal 31.4 - 36.0 gm/dL [facility] HemeAutoSS MCV (RBC) [Entitic vol] 96.0 fL Normal 80.0 - 100.0 fL [facility]eAutoSS Platelet mean volume (Bld) [Entitic vol] 6.9 fL Normal 6.4 - 10.8 fL [facility] Platelets (Bld) [#/Vol] 462.0 E9/L Normal 150.0 - 500.0 E9/L [facility]eAutoSS RBC (Bld) [#/Vol] 3.3 E12/L Low 4.3 - 5.9 E12/L [facility] HemeAutoSS WBC corrected for nucl RBC Auto (Bld) [#/Vol] 7.9 E9/L Normal 4.0 - 11.0 E9/L [facility] HemeAutoSS CHEMISTRYOrdered By: SYSTEM SYSTEM on 06-30-2021 Creatinine [Mass/Vol] 0.9 mg/dL Normal 0.5 - 1.3 mg/dL [facility] Remisol GFR/1.73 sq M.predicted among blacks MDRD (S/P/Bld) [Vol rate/Area] mL/min/1.73 m2 Normal >=59mL/min/ 1.73 m2 [facility] Chem S GFR/1.73 sq M.predicted among non-blacks MDRD (S/P/Bld) [Vol rate/Area] mL/min/1.73 m2 Normal >=59mL/min/ 1.73 m2 [facility] Chem S HEMATOLOGYOrdered By: SYSTEM SYSTEM on 06-29-2021 Basophils/100 WBC (Bld) 0.4 % Normal 0.0 - 2.0 % [facility]eAuto[facility] Basophils/Leukocytes Auto (Bld) [Pure # fraction] 0.0 E9/L Normal 0.0 - 0.2 E9/L [facility] Eosinophils/100 WBC (Bld) 7.1 % Normal 0.0 - 8.0 % [facility] Eosinophils/Leukocytes Auto (Bld) [Pure # fraction] 0.7 E9/L High 0.0 - 0.5 E9/L [facility] Lymphocytes/100 WBC (Bld) 14.1 % Normal 14.0 - 50.0 % [facility] Lymphocytes/Leukocytes Auto (Bld) [Pure # fraction] 1.3 E9/L Normal 1.0 - 4.0 E9/L [facility] HemeAutoSS Monocytes/100 WBC (Bld) 9.6 % Normal 4.0 - 14.0 % [facility] HemeAutoSS Monocytes/Leukocytes Auto (Bld) [Pure # fraction] 0.9 E9/L Normal 0.2 - 1.0 E9/L [facility] HemeAutoSS Neutrophils/100 WBC (Bld) 68.8 % Normal [...] 0.8 mg/dL Normal 0.5 - 1.3 mg/dL [facility] Remisol GFR/1.73 sq M.predicted among blacks MDRD (S/P/Bld) [Vol rate/Area] mL/min/1.73 m2 Normal >=59mL/min/ 1.73 m2 [facility] Chem S GFR/1.73 sq M.predicted among non-blacks MDRD (S/P/Bld) [Vol rate/Area] mL/min/1.73 m2 Normal >=59mL/min/ 1.73 m2 [facility] Chem S Glucose [Mass/Vol] 106 mg/dL Normal 55 - 199 mg/dL [facility] Potassium [Moles/Vol] 4.6 mmol/L Normal 3.5 - 5.3 mmol/L [facility] Remisol Sodium [Moles/Vol] 136 mmol/L Normal 135 - 145 mmol/L [facility] Remisol Urea nitrogen [Mass/Vol] 13 mg/dL Normal 5 - 21 mg/dL [facility] Remisol Urea nitrogen/Creatinine [Mass ratio] 16 mg/mg Normal 10 - 20 [facility] Remisol HEMATOLOGYOrdered By: SYSTEM SYSTEM on 06-28-2021 [...] 06-27-2021 Penicillin CARMEN [Susc] 3+ Staphylococcus aureus [facility] Penicillin CARMEN [Susc]on 06-04 GS 1+ White Blood Cells 2+ Gram Positive Cocci [facility] Staphylococcus aureus Staphylococcus aureus [facility] CHEMISTRYOrdered By: SYSTEM SYSTEM on 06-26-2021 Anion gap [Moles/Vol] 16 mmol/L Normal 6 [...] NEG [place]l [place] (06/24/21 1:11 PM) Normal [facility] Man Sero Rapid COV Int POS Ctl Pass (06/24/21 1:11 PM) Normal [facility] Man Sero SARS-CoV+SARS-CoV-2 (COVID-19) Ag IA.rapid Ql (Resp) Not Detected (06/24/21 1:11 PM) Normal Not Detected [facility] Man Sero CHEMISTRYOrdered By: Lab ROP User on 06-22-2021 Glucose [Mass/Vol] 98 mg/dL Normal 55 - 99 mg/dL [facility] POC Subsection Comment on above: Result Comment: Moody vogel RN/ POC Device SN [id number] Invalid Interpretation Code [facility] POC Subsection POC User ID [id number] Invalid Interpretation Code [facility] POC Subsection POC Username Paty Wilson Invalid Interpretation Code [facility] POC Subsection CHEMISTRYOrdered By: Lab ROP User on 06-20-2021 Glucose [Mass/Vol] 103 mg/dL High 55 - 99 mg/dL [facility] POC Subsection Comment on above: Result Comment: Moody lela RN/MD POC Device SN [id number] Invalid Interpretation Code [facility] POC Subsection POC User ID [id number] Invalid Interpretation Code [facility] POC Subsection POC Username ANNE MARIEJEANNIEVALERIANO FINN Invalid Interpretation Code [facility] POC Subsection MICRO OTHER TESTSOrdered By: Arnol Thapa on 06-20-2021 Rapid COV Int NEG Ctl Pass (06/20/21 11:22 AM) Normal [facility] Man Sero Rapid COV Int POS Ctl Pass (06/20/21 11:22 AM) Normal [facility] Man Sero SARS-CoV+SARS-CoV-2 (COVID-19) Ag IA.rapid Ql (Resp) Not Detected (06/20/21 11:22 AM) Normal Not Detected [facility] Man Sero CHEMISTRYOrdered By: Lab ROP User on 06-19-2021 Glucose [Mass/Vol] 95 mg/dL Normal 55 - 99 mg/dL [facility] POC Subsection POC Device SN [id number] Invalid Interpretation Code [facility] POC Subsection POC User ID [id number] Invalid Interpretation Code [facility] POC Subsection POC Username RYAN CLEARY Invalid Interpretation Code [facility] POC Subsection CEFAZOLIN:SUSC:PT:ISOLATE:OR DQN:MICon 06-14-2021 ceFAZolin CARMEN [Susc] 5,000 cfu/ml Staphylococcus epidermidis [facility] URINALYSISOrdered By: Koko Booth on 06-14-2021 Bacteria [...] Interpretation Code Negative [facility] UA Auto SS Narrows.plasma/Narrows .RBC (Bld) [Mass ratio] 4-20 /HPF Normal [...] [facility] UA Auto SS Urobilinogen Qn (U) [id number] {Kole'U}/dL Invalid Interpretation Code 0.0 - 1.0 EU/dL [facility] UA Auto SS WBC Auto Ql (U) Trace *ABN* (06/14/21 8:53 AM) Invalid Interpretation Code Negative [facility] UA Auto SS WBC LM.HPF (Urine sed) [#/Area] /[HPF] Invalid Interpretation Code 0-5/HPF [facility] UA Auto SS ceFAZolin CARMEN [Susc]on 06-14 Staphylococcus epidermidis Staphylococcus epidermidis [facility] BLOOD BANKOrdered By: Jaquelin Hooker on 06-13-2021 ABO/Rh Interp Positive Invalid Interpretation Code [facility] BB Subsection ABSC Gel Interp Negative (06/13/21 12:10 PM) Normal [facility] BB Subsection BLOOD BANKOrdered By: Jaquelin Hooker on 06-12-2021 ABO/Rh Retype Interp Positive Invalid Interpretation Code [facility] BB Subsection COAGULATIONOrdered By: David Forrester on 06-12-2021 aPTT Coag (PPP) [Time] 34.0 s Normal 25.1 - 36.5 second(s) [facility] Auto Coag INR Coag (PPP) [Relative time] 1.3 {INR} Invalid Interpretation Code [facility] Auto Coag PT Coag (PPP) [Time] 15.3 s High 10.2 - 12.9 second(s) [facility] Auto Coag CBC AUTO DIFFon 06-11-2021 BASO # 0.1 103/ul Normal 0.0-0.1 [facility] Comment on above: Performed By: #### C BC #### [facility] [address] [place] [address] Dr. Randi Black Basophils/100 WBC (Bld) 0.4 % Normal 0.2-2.0 [facility] Comment on above: Performed By: #### C BC #### [facility] [address] [place] [address] Dr. Randi Black EO # 0.0 103/ul Normal 0.0-0.7 [facility] Comment on above: Performed By: #### C BC #### [facility] [address] [address] [address] Randi Black Eosinophils/100 WBC (Bld) 0.1 % Critically low 0.9-7.0 [facility] Comment on above: Performed By: #### C BC #### [facility] [address] [place] [address] Dr. Randi Black Erythrocyte distribution width (RBC) [Ratio] 12.7 % Normal 11.0-15.0 [facility] Comment on above: Performed By: #### C BC #### [facility] [address] [place] [address] Dr. Randi Black Hematocrit (Bld) [Volume fraction] 47.5 % Normal 42.0-54.0 [facility] Comment on above: Performed By: #### C BC #### [facility] [address] [address] [address] Randi Black Hemoglobin (Bld) [Mass/Vol] 15.5 g/dL Normal 14.0-18.0 [facility] Comment on above: Performed By: #### C BC #### [facility] [address] [address] [address] Randi Black IG # 0.05 10e3/ul Critically high 0.00-0.03 [facility] Comment on above: Performed By: #### C BC #### [facility] [address] [place] [address] Dr. Randi Black IG % 0.4 % Normal 0.0-0.5 [facility] Comment on above: Performed By: #### C BC #### [facility] [address] [place] [address] Dr. Randi Black LYMPH # 0.9 103/ul Critically low 1.2-3.8 [facility] Comment on above: Performed By: #### C BC #### [facility] [address] [place] [address] Dr. Randi Black Lymphocytes/100 WBC (Bld) 6.4 % Critically low 20.5-60.0 [facility] Comment on above: Performed By: #### C BC #### [facility] [address] [place] [address] Dr. Randi Black MANUAL DIFF REQ NO Normal [facility] Comment on above: Performed By: #### C BC #### [facility] [address] [place] [address] Dr. Randi Black MCH (RBC) [Entitic mass] 32.2 pg Normal 25.9-34.0 [facility] Comment on above: Performed By: #### C BC #### [facility] [address] [place] [address] Dr. Randi Black [facility] (RBC) [Mass/Vol] 32.6 g/dL Normal 29.9-35.2 [facility] Comment on above: Performed By: #### C BC #### [facility] [address] [address] [address] Randi Black MCV (RBC) [Entitic vol] 98.5 fL Critically high 80.0-94.0 [facility] Comment on above: Performed By: #### C BC #### [facility] [address] [address] [address] Randi lBack MONO # 0.6 103/ul Normal 0.3-0.8 [facility] Comment on above: Performed By: #### C BC #### [facility] [address] [address] [address] Randi Black Monocytes/100 WBC (Bld) 4.5 % Normal 1.7-12.0 [facility] Comment on above: Performed By: #### C BC #### [facility] [address] [address] [address] Randi Black NEUT # 11.9 103/ul Critically high 1.4-6.5 [facility] Comment on above: Performed By: #### C BC #### [facility] [address] [address] [address] Randi Black Neutrophils/100 WBC (Bld) 88.2 % Critically high 43.0-75.0 [facility] Comment on above: Performed By: #### C BC #### [facility] [address] [address] [address] Randi Black Platelet mean volume (Bld) [Entitic vol] 8.7 fL Critically low 9.5-13.5 [facility] Comment on above: Performed By: #### C BC #### [facility] [address] [address] [address] Randi Black PLT 245 103/ul Normal 150-450 [facility] Comment on above: Performed By: #### C BC #### [facility] [address] [address] [address] Randi Black RBC 4.82 106/ul Normal 4.70-6.10 [facility] Comment on above: Performed By: #### C BC #### [facility] [address] [place], [place] [address] Dr. Randi Black WBC 13.5 103/ul Critically high 4.0-11.0 [facility] Comment on above: Performed By: #### C BC #### [facility] [address] [place], [place] [address] Dr. Randi Black CHEMISTRYOrdered By: SYSTEM SYSTEM [...] by: MOR FAULKNER Date: 2021-06-11 13:23 Normal [facility] LACTATE/LACTIC ACIDon 2021 Lactate [Moles/Vol] 2.8 mmol/L Critically high 0.7-2.0 [facility] Comment on above: Performed By: #### L ACT #### [facility] [address] [place] [address] Dr. Randi Black LIPASEon 06-11-2021 Lipase [Catalytic activity/Vol] 184.0 U/L Normal 23.0-300.0 [facility] Comment on above: Performed By: #### L IPA #### [facility] [address] [place] [address] Dr. Randi Black No Panel Informationon 06-11 Blood Culture Charcoal No growth at 7 days. [facility] Blood Culture Charcoal No growth at 7 days. [facility] PROF 14(COMP METB)on 022 Albumin [Mass/Vol] 4.1 g/dL Normal 3.4-5.0 [facility] Comment on above: Performed By: #### C MP #### [facility] [address] [place] [address] Dr. Randi Black Albumin/Globulin [Mass ratio] 0.9 {ratio} Normal [facility] Comment on above: Performed By: #### C MP #### [facility] [address] [address] [address] Randi Black ALP [Catalytic activity/Vol] 164 U/L Critically high 46-116 [facility] Comment on above: Performed By: #### C MP #### [facility] [address] [address] [address] Randi Black ALT [Catalytic activity/Vol] 22 U/L Normal 16-63 [facility] Comment on above: Performed By: #### C MP #### [facility] [address] [address] [address] Randi Black Anion gap [Moles/Vol] 15.1 mmol/L Normal [facility] Comment on above: Performed By: #### C MP #### [facility] [address] [place] [address] Dr. Randi Black AST [Catalytic activity/Vol] 14 U/L Critically low 15-37 [facility] Comment on above: Performed By: #### C MP #### [facility] [address] [address] [address] Randi Black Bilirubin [Mass/Vol] 0.3 mg/dL Normal 0.2-1.3 [facility] Comment on above: Performed By: #### C MP #### [facility] [address] [place] [address] Dr. Randi Black Calcium [Mass/Vol] 9.3 mg/dL Normal 8.5-10.1 [facility] Comment on above: Performed By: #### C MP #### [facility] [address] [address] [address] Randi Black Chloride [Moles/Vol] 100 mmol/L Normal 98-107 [facility] Comment on above: Performed By: #### C MP #### [facility] [address] [address] [address] Randi Black CO2 [Moles/Vol] 26.6 mmol/L Normal 22.0-30.0 [facility] Comment on above: Performed By: #### C MP #### [facility] [address] [address] [address] Randi Black Creatinine [Mass/Vol] 1.31 mg/dL Critically high 0.66-1.25 [facility] Comment on above: Performed By: #### C MP #### [facility] [address] [address] [address] Randi Black EGFR-AF LIBERIAN >60 Normal >=60 [facility] Comment on above: Performed By: #### C MP #### [facility] [address] [address] [address] Randi Black EGFR-NON AF LIBERIAN 55 mL/min/1.73m2 Critically low >=60 [facility] Comment on above: Performed By: #### C MP #### [facility] [address] [address] [address] Randi Black Globulin (S) [Mass/Vol] 4.5 g/dL Normal [facility] Comment on above: Performed By: #### C MP #### [facility] [address] [address] [address] Randi Black Glucose [Mass/Vol] 112 mg/dL Critically high 74-106 [facility] Comment on above: Performed By: #### C MP #### [facility] [address] [address] [address] Randi Black Potassium [Moles/Vol] 3.7 mmol/L Normal 3.4-5.0 [facility] Comment on above: Performed By: #### C MP #### [facility] [address] [address] [address] Randi Black Protein [Mass/Vol] 8.6 g/dL Critically high 6.1-8.2 [facility] Comment on above: Performed By: #### C MP #### [facility] [address] [place] [address] Dr. Randi Black Sodium [Moles/Vol] 138 mmol/L Normal 137-145 [facility] Comment on above: Performed By: #### C MP #### [facility] [address] [address] [address] Randi Black Urea nitrogen [Mass/Vol] 26.0 mg/dL Critically high 7.0-18.0 [facility] Comment on above: Performed By: #### C MP #### [facility] [address] [address] [address] Randi Black Urea nitrogen/Creatinine [Mass ratio] 19.8 mg/mg Normal [facility] Comment on above: Performed By: #### C MP #### [facility] [address] [address] [address] Randi Black XR CHEST 1 Von [...] Its tip is not included in the [id number], but it is located below the left hemidiaphragm. Electronically authenticated by: IRWIN QUICK Date: 2021-06-11 15:00 Normal [facility] XR CHEST 1 V EXAM: XR CHEST 1 V HISTORY: SHORTNESS OF BREATH COMPARISON: 10/02/2020 TECHNIQUE: Portable AP chest 12:32 PM FINDINGS: Lungs are clear and heart size is normal. No pleural effusion or pneumothorax. IMPRESSION: No acute findings Electronically authenticated by: MOR FAULKNER Date: 2021-06-11 13:15 Normal [facility] XR ABD FLAT_UPon 02-28-2021 XR ABD FLAT_UP [...] by: DAVID TSANG Date: 2021-02-28 14:42 Normal [facility] Basic Metabolic PanelOrdered By: Carson Matamoros on 08-18-2020 Anion gap [Moles/Vol] 7 mmol/L Low 9 - 17 mmol/L [employer] Phone: Calcium [Mass/Vol] 9.5 mg/dL 8.6 - 10. 4 mg/dL [employer] Phone: Chloride [Moles/Vol] 103 mmol/L 98 - 10 7 mmol/L [employer] Phone: CO2 [Moles/Vol] 28 mmol/L 20 - 31 mmol/L [employer] Phone: Creatinine [Mass/Vol] 1.17 mg/dL 0.70 - 1.20 mg/dL [employer] Phone: GFR >60 >60 mL/min [employer] Phone: GFR Non- >60 >60 mL/min [employer] Phone: Glucose [Mass/Vol] 80 mg/dL 70 - 99 mg/dL [employer] Phone: Potassium [Moles/Vol] 4.9 mmol/L 3.7 - 5.3 mmol/L [employer] Phone: Sodium [Moles/Vol] 138 mmol/L 135 - 144 mmol/L [employer] Phone: Urea nitrogen (BldV) [Mass/Vol] 21 mg/dL 8 - 23 mg/dL [employer] Phone: Urea nitrogen/Creatinine (Bld) [Mass ratio] 18 [employer] Phone: CBC Auto DifferentialOrdered By: Carson Matamoros on 08-18-2020 Absolute Eos # 0.23 [employer] Work Phone: Absolute Immature Granulocyte 0.03 [employer] Phone: Absolute Lymph # 1.63 [employer] [facility] Work Phone: Absolute Prowers # 0.52 [employer] Man[employer] [facility] Work Phone: Basophils (Bld) [#/Vol] 0.05 10*3/uL [employer] Work Phone: Basophils/100 WBC (Bld) 1 % 0 - 2 % [employer] Work Phone: Differential Type NOT REPORTED [employer] Phone: Eosinophils/100 WBC (Bld) 3 % 1 - 4 % [employer] Phone: Hematocrit (Bld) [Volume fraction] 40.7 % 40.7 - 50.3 % [employer] Phone: Hemoglobin.gastrointes tinal spec 1 Ql (Stl) 12.9 g/dL Low 13.0 - 17.0 g/dL [employer] Work Phone: Immature granulocytes/100 WBC (Bld) 0 % 0 [employer] Phone: Interpretation and review of laboratory results Abnormal [employer] Phone: Lymphocytes/100 WBC (Bld) 21 % Low 24 - 43 % [employer] Phone: MCH (RBC) [Entitic mass] 32.0 pg 25.2 - 33.5 pg [employer] Phone: MCHC (RBC) [Mass/Vol] 31.7 g/dL 28.4 - 34.8 g/dL [employer] Phone: MCV (RBC) [Entitic vol] 101.0 fL 82.6 - 102.9 fL [employer] Phone: Monocytes/100 WBC (Bld) 7 % 3 - 12 % [employer] Phone: NRBC Automated 0.0 0.0 per 100 WBC [employer] Phone: Platelet distribution width (Bld) [Ratio] 12.4 % 11.8 - 14.4 % [employer] Phone: Platelet Estimate NOT REPORTED [employer] Phone: Platelet mean volume (Bld) [Entitic vol] 9.1 fL 8.1 - 13.5 fL [employer] Work Phone: Platelets (Bld) [#/Vol] 225 10*3/uL [employer] Work Phone: RBC (Bld) [#/Vol] 4.03 10*6/uL Low 4.21 - 5.7 7 m/uL [employer] Phone: RBC (Bld) [#/Vol] NOT REPORTED [employer] Phone: Segmented neutrophils/100 WBC (Bld) 68 % High 36 - 65 % [employer] Work Phone: Segs Absolute 5.33 [employer] Work Phone: WBC (Bld) [#/Vol] 7.8 10*3/uL [employer] Work Phone: WBC (Bld) [#/Vol] NOT REPORTED [employer] Phone: [employer] Phone: Hepatic Function PanelOrdere d By: Carson Matamoros on 08-18-2020 Albumin [Mass/Vol] 3.9 g/dL 3.5 - 5.2 g/dL [employer] Phone: Albumin/Globulin [Mass ratio] 1.2 {ratio} [employer] Phone: ALP (Bld) [Catalytic activity/Vol] 141 U/L High 40 - 129 U/L [employer] Phone: ALT [Catalytic activity/Vol] 18 U/L 5 - 41 U/L [employer] Work Phone: AST [Catalytic activity/Vol] 16 U/L <40 [employer] Phone: Bilirubin [Mass/Vol] 0.24 mg/dL Low 0.3 - 1 .2 mg/dL [employer] Phone: Bilirubin, Indirect CANNOT BE CALCULATED 0.00 - 1.00 mg/dL [employer] Phone: Bilirubin.indirect [Mass/Vol] mg/dL <0.31 mg/dL [employer] Phone: Free PSA/Total PSA [Mass fraction] 7.2 g/dL 6.4 - 8.3 g/dL [employer] Phone: Globulin NOT REPORTED 1.5 - 3.8 g/dL [employer] Phone: Laboratory - Chemistry and C hemistry - challengeOrdered By: Carson Matamoros on 08-18-2020 GFR/1.73 sq M.predicted MDRD (S/P/Bld) [Vol rate/Area] [facility] Phone: Comment on above: Average GFR for 60-6 9 years old: 85 mL/min/1.73sq m Chronic Kidney Disease: <60 mL/min/1.73sq m Kidney failure: <15 mL/min/1.73sq m eGFR calculated using average adult body mass. Additional eGFR calculator available at: http://www.[employer]/multiple_crcl_2012.htm Stage 1: Some kidney damage normal GFR Stage 2: Mild kidney damage GFR 60-89 Stage 3: Moderate kidney damage GFR 30-59 Stage 4: Severe kidney damage GFR 15-29 Stage 5: Severe kidney damage GFR <15 ESRD - chronic treatment by dialysis or transplant Lipid PanelOrdered By: Carson Matamoros on 08-18-2020 Cholesterol [Mass/Vol] 155 mg/dL <200 [employer] Phone: Comment on above: Cholesterol Guidelines: <200 Desirable 200-240 Borderline >240 Undesirable Cholesterol in HDL [Mass/Vol] 55 mg/dL >40 [employer] Phone: Comment on above: HDL Guidelines: <40 Undesirable 40-59 Borderline >59 Desirable Cholesterol in LDL [Mass/Vol] 91 mg/dL 0 - 130 mg/dL [employer] Phone: Comment on above: LDL Guidelines: <100 Desirable 100-129 Near to/above Desirable 130-159 Borderline >159 Undesirable Direct (measured) LDL and calculated LDL are not interchangeable tests. Cholesterol in VLDL [Mass/Vol] NOT REPORTED 1 - 30 mg/dL [employer] Phone: Cholesterol.total/Chol esterol in HDL [Mass ratio] 2.8 {ratio} <5 [employer] Phone: Triglyceride [Mass/Vol] 46 mg/dL <150 [employer] Phone: Comment on above: Triglyceride Guidelines: <150 Desirable 150-199 Borderline 200-499 High >499 Very high Based on AHA Guidelines for fasting triglyceride, December 2011. [employer] Phone: No Panel InformationOrdered By: Carson Matamoros on 08-18-2020 Interpretation and review of laboratory results Abnormal [employer] Phone: [employer] Phone: PSA screeningOrdered By: Rochelle Matamoros on 08-18-2020 [employer] Phone: Basic Metabolic Panelon 10-2 Anion gap [Moles/Vol] 8 mmol/L Low 9 - 17 mmol/L [facility] [place] [facility] [place] Bun/Cre Ratio 17 [place] Calcium [Mass/Vol] 9.9 mg/dL 8.6 - 10. 4 mg/dL [place] Chloride [Moles/Vol] 101 mmol/L 98 - 10 7 mmol/L [place] CO2 [Moles/Vol] 30 mmol/L 20 - 31 mmol/L [place] Creatinine [Mass/Vol] 1 mg/dL 0.7 - 1.2 mg/dL [place] GFR >60 >60 mL/min [place] GFR Non- >60 >60 mL/min [place] Glucose [Mass/Vol] 88 mg/dL 70 - 99 mg/dL [place] Potassium [Moles/Vol] 4.4 mmol/L 3.7 - 5.3 mmol/L [place] Sodium [Moles/Vol] 139 mmol/L 135 - 144 mmol/L [place] Urea nitrogen [Mass/Vol] 17 mg/dL 8 - 23 mg/dL [place] CBC Auto Differentialon 12-04 Basophils (Bld) [#/Vol] 0.06 10*3/uL [place] Basophils/100 WBC (Bld) 1 % 0 - 2 % [place] Differential Type NOT REPORTED [place] Eosinophils (Bld) [#/Vol] 0.52 10*3/uL [place] Eosinophils/100 WBC (Bld) 6 % High 1 - 4 % [place] Erythrocyte distribution width (RBC) [Ratio] 12.7 % 11.8 - 14.4 % [place] Hematocrit (Bld) [Volume fraction] 41.0 % 40.7 - 50.3 % [place] Hemoglobin (Bld) [Mass/Vol] 12.7 g/dL Low 13 - 17 g/dL [place] Immature granulocytes (Bld) [#/Vol] 0 % 0 [place] Immature granulocytes (Bld) [#/Vol] 10*3/uL [place] Interpretation and review of laboratory results Abnormal [place] Lymphocytes (Bld) [#/Vol] 2.08 10*3/uL [place] Lymphocytes/100 WBC (Bld) 25 % 24 - 43 % [place] MCH (RBC) [Entitic mass] 31.6 pg 25.2 - 33.5 pg [place] MCHC (RBC) [Mass/Vol] 31.0 g/dL 28.4 - 34.8 g/dL [place] MCV (RBC) [Entitic vol] 102.0 fL 82.6 - 102.9 fL [place] Monocytes (Bld) [#/Vol] 0.55 10*3/uL [place] Monocytes/100 WBC (Bld) 7 % 3 - 12 % [place] Platelet mean volume (Bld) [Entitic vol] 9.0 fL 8.1 - 13.5 fL [place] Platelets (Bld) [#/Vol] NOT REPORTED [place] Platelets (Bld) [#/Vol] 230 10*3/uL [place] RBC (Bld) [#/Vol] 4.02 10*6/uL Low 4.21 - 5.7 7 m/uL [place] RBC morphology finding Nom (Bld) NOT REPORTED [place] Segmented neutrophils/100 WBC (Bld) 61 % 36 - 65 % [place] Segs Absolute 5.16 [place] WBC (Bld) [#/Vol] 8.4 10*3/uL [place] WBC (Bld) [#/Vol] 0.0 10*3/uL 0.0 per 10 0 WBC [place] WBC Morphology NOT REPORTED [place] Hepatic Function Panelon Albumin [Mass/Vol] 4.3 g/dL 3.5 - 5.2 g/dL [place] Albumin/Globulin [Mass ratio] 1.3 {ratio} [place] ALP [Catalytic activity/Vol] 119 U/L 40 - 129 U/L [place] ALT [Catalytic activity/Vol] 11 U/L 5 - 41 U/L [place] AST [Catalytic activity/Vol] 11 U/L <40 [place] Bilirubin Ql (U) 0.26 mg/dL Low 0.3 - 1.2 mg/dL [place] Bilirubin, Indirect CANNOT BE CALCULATED 0 - 1 mg/dL [place] Bilirubin.direct [Mass/Vol] mg/dL <0.31 mg/dL [place] Globulin (S) [Mass/Vol] NOT REPORTED 1.5 - 3.8 g/dL [place] Protein [Mass/Vol] 7.6 g/dL 6.4 - 8.3 g/dL [place] Lamotrigine Levelon 12-31-19 20 Interpretation and review of laboratory results Abnormal [place] Lamotrigine Lvl 15.9 ug/mL High 3 - 15 ug/mL [place] Comment on above: Neither a therapeutic [...] Levetiracetam Levelon 2019 Levetiracetam Lvl 72 ug/mL [place] Comment on above: A reference range [...] predicted among non-blacks MDRD (S/P/Bld) [Vol rate/Area] [place] Comment on above: Stage 1: Some [...] body mass. Additional eGFR calculator available at: http://www.[employer]if[employer]i/multiple_crcl_2012.htm Otheron 12-31-2019 Interpretation and review of laboratory results Abnormal [place] Microscopic Urinalysison Amorphous, UA NOT REPORTED None [place] Bacteria, UA 3+ Abnormal None [place] Casts UA NOT REPORTED /LPF [place] Crystals UA NOT REPORTED None /HPF [place] Epithelial Cells UA 0 TO 2 [place] Interpretation and review of laboratory results Abnormal [place] Mucus, UA NOT REPORTED None [place] Other Observations UA NOT REPORTED NOT REQ. M [place] RBC (U) [#/Vol] 50 TO 100 [place] Renal Epithelial, Urine NOT REPORTED 0 /HPF [place] Trichomonas, UA NOT REPORTED None [facility] [place] WBC, UA GREATER THAN 100 [place] Yeast, UA NOT REPORTED None [place] - [place] Urinalysison 12-05-2018 Bilirubin Urine Negative NEGATIVE [place] Color, UA YELLOW YELLOW [place] Glucose, Ur Negative NEGATIVE [place] Interpretation and review of laboratory results Abnormal [place] Ketones Ql (U) Negative NEGATIVE [place] Leukocyte esterase Test strip Ql (U) LARGE Abnormal NEGATIVE [place] Nitrite, Urine Negative NEGATIVE [place] pH, UA 6.0 [place] Protein (U) [Mass/Vol] Negative NEGATIVE [place] Specific [place], UA 1.015 [place] Turbidity UA CLOUDY Abnormal CLEAR [place] Urinalysis Comments NOT REPORTED [place] Urine Hgb 3+ Abnormal NEGATIVE [place] Urobilinogen, Urine Normal Normal [place] Basic Metabolic Panlon 11-29 Anion gap [Moles/Vol] 12 mmol/L Normal 9-18 [facility] Calcium [Mass/Vol] 9.1 mg/dL Normal 8.5-10.2 [facility] Chloride [Moles/Vol] 106 mmol/L High 97-105 [facility] CO2 [Moles/Vol] 21 mmol/L Low 22-30 [facility] Creatinine [Mass/Vol] 1.12 mg/dL Normal 0.73-1.22 [facility] eGFR- Amer. >60 Normal [facility] GFR/1.73 sq M predicted among non-blacks MDRD (S/P/Bld) [Vol rate/Area] mL/min/{1.73_m2} Normal [facility] Comment on above: Result Comment: [...] ospital Comment on above: Result Comment: The [place] Diabetes Association (ADA) provides guidance for cutoff [...] Standards of Medical Care in Diabetes 2016, [place] Diabetes Association. Diabetes Care. 2016.39(Suppl 1). Potassium [Moles/Vol] 4.5 mmol/L Normal 3.7-5.1 [facility] Sodium [Moles/Vol] 139 mmol/L Normal 136-144 [facility] Urea nitrogen [Mass/Vol] 7 mg/dL Low 9-24 [facility] CASE MANAGEMon 11-29-2018 CASE MANAGEM HNO ID: [id number] Author: Ciara (Rn) MILLER Roberts Service: Care Management Author Type: Registered Nurse Type: Care Mgt Progress Note Filed: 11/29/2018 3:26 PM Note Text: CARE MANAGEMENT DISCHARGE NOTE SERVICE DATE: 11/29/2018 SERVICE TIME: 3:00pm LOS: 7 days Admission Date: 11/22/2018 DISCHARGE ARRANGEMENT (list agency and phone number) PENDING [facility] Provider: Laura Rowna . CAREGIVER ASSESSMENT: Caregiver is ready, willing and able to meet the patient's needs as recommended by the inter-professional team? Yes Patient's transition needs and plan for meeting these needs: Transportation is arranged with [facility] to take pt to long term on a stretcher via ambulance. manager six sigma, Laura Rowan notified of discharge today and anticipated discharge time. Also informed of pt discharging with a will cath for urinary retention and follow up with urologist needed. Loan And Credit Manager expressed understanding and had no concerns about meeting the pt's needs. Pt's sister/guardian, Susan Smith [phone], was called and Informed of discharge plan and mode of transportation. Guardian was agreeable with both. Does the patient have an acute stroke diagnosis, or has the patient had a stroke during this admission? No HANDOFF COMMUNICATION: Primary Care Physician: Dr Luz Marina Mooney TRANSPORTATION ARRANGEMENTS: Mode of Transportation: Ambulance Transportation Agency and Phone #: [facility] [phone]. Date of Trip: 11/29/18 Type of Service: BLS Non-emergency Is Patient Medicaid Pending: No Discussion of financial coverage occurred with Guardian . Agricultural Equipment Sales Manager Location: [place] [address] Destination: [facility] Financial Care Management Responsibility: None Estimated Charge: n/a Approving Loan And Credit Manager: n/a ADDITIONAL CONTACT RESOURCES: None Discharge Information Row Name Admission (Discharged) from 11/22/[address] Durable Medical Equipment Agency ? Phone# ? Equipment Needed ? Needs Prior to Discharge: None;Ready for Discharge SIGNATURE: Ciara Roberts RN PATIENT NAME: Amol Taylor DATE: November 29, 2018 TIME: 3:05 PM PAGER/CONTACT #: [phone] [facility] CASE MANAGEM HNO ID: [id number] Author: Kristyn (Rn) MILLER Balbuena Service: Care Management Author Type: Registered [...] 29, 2018 TIME: 12:38 PM PAGER/CONTACT #: [phone] Normal [facility] CBCon 11-29-2018 Absolute nRBC <0.01 [facility]0.[facility]th[facility] distribution width (RBC) [Ratio] 11.9 % Normal 11.5-15.0 [facility] Hematocrit (Bld) [Volume fraction] 36.2 % Low 39.0-51.0 [facility] Hemoglobin (Bld) [Mass/Vol] 11.7 g/dL Low 13.0-17.0 [facility] MCH (RBC) [Entitic mass] 32.1 pG Normal 26.0-34.0 [facility] MCHC (RBC) [Mass/Vol] 32.3 g/dL Normal 30.5-36.0 [facility] MCV (RBC) [Entitic vol] 99.2 fL Normal 80.0-100.0 [facility] Platelet mean volume (Bld) [Entitic vol] 9.1 fL Normal 9.0-12.7 [facility] l Platelets (Bld) [#/Vol] 250 10*3/uL Normal 150-400 [facility] RBC (Bld) [#/Vol] 3.65 10*6/uL Low 4.20-6.00 [facility] WBC (Bld) [#/Vol] 8.62 10*3/uL Normal 3.70-11.00 [facility] NUTRITIONon 11-29-2018 NUTRITION HNO ID: [id number] Author: Mariela Jara (Georgina) GEORGINA Knott Service: Nutrition Therapy Author Type: Registered Dietitian [...] Nutrition Recommendations: Diet: GI soft as tolerated [facility] 11/22 Yolanda Alford MD: Mr. 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 11/22-11/27: NPO Per epic 11/28: Clear liquid diet- 100% 11/29: 100% breakfast GI symptoms: unable to determine at this time Nutrition Abdominal Exam: and not assessed ANTHROPOMETRICS Admission Current Weight: 86.36 kg (190 lbs)- bed scale weight obtained by this junior underwriter BMI: 31.72 kg/m2 Unable to determine weight [...] lb 4.8 oz) Dosing Weight: 86.36 kg [place] body weight: 61.81 kg Estimated kilocalorie needs: 0090-3196 kilocalories determined by 20-25 kcal/kg Estimated protein needs: 74-92 grams determined by 1.2-1.5 g/kg [place] weight Estimated fluid needs: 4280-6758 milliliters based on 1 mL per kcal [...] November 29, 2018 TIME: 10:00 AM PAGER: [phone],/ [phone] Reviewed and agree with plan of care. June GEORGINA Knott, LD Pager [phone] [facility] CASE MANAGEMon 11-28-2018 CASE MANAGEM HNO ID: [id number] Author: Nelida Goode (Sw) Service: Case Management Author Type: Cash Application Clerk Type: Care Mgt Progress Note Filed: 11/28/2018 4:21 PM Note Text: CARE MANAGEMENT PROGRESS NOTE SERVICE DATE: 11/28/2018 SERVICE TIME: 4:14 PM LOS: 6 days Needs Prior to Discharge: To Be Determined Spoke with Dr. Saucedo, patient's diet is being advanced today, hopeful for dc tomorrow. He will need to be discharged with a will. Call placed to long term manage Laura Rowan [phone] and message left to make sure that the long term can manage the will. PT was also consulted. SIGNATURE: LAURA Faulkner PATIENT NAME: Amol Taylor DATE: November 28, 2018 TIME: 4:13 PM PAGER/CONTACT #: [phone] [facility] CONSULT PROGon 11-28-2018 CONSULT PROG HNO ID: [id number] Author: Citlali Escalante) Rocío Service: Gastroenterology Author Type: Nurse Practitioner Type: [...] D/W Dr. Rogel ? Citlali Alford APRN.CNP [facility] Gastroenterology [facility] Consult? SIGNATURE: Citlali Alford APRN.CNP PATIENT NAME: Amol Taylor DATE: November 28, 2018 TIME: 1:46 PM PAGER: [phone] [facility] CONSULT PROG HNO ID: [id number] Author: Elsa Kaur Service: General Surgery Author Type: Physician Brake Lining Curer Type: Consult Progress Note Filed: 11/28/2018 9:38 [...] 28, 2018 TIME: 9:33 AM PAGER/CONTACT #: [phone] [facility] NURSING PROGon 11-28-2018 NURSING PROG HNO ID: [id number] Author: Belle Monteiro (Rn) MILLER Leon Service: Nursing Author Type: Registered Nurse Type: Nursing Progress Note Filed: 11/28/2018 4:17 PM Note Text: Nursing Progress Note Patient Name: Amol Taylor Patient [facility] Daily Note:Awake, alert, pleasant, cooperative, impulsive. Developmental disability. Denies any abdominal pain or nausea. For another KUB today to monitor level of barium retention. Abdomen remains distended. Has had several stools since laxatives initiated yesterday, but stool output has slowed down as this shift progressed. GI vs. Will advance diet. 1600 Attending vs. This note was completed by: Belle Leon RN [facility] PROGRESSon 11-28-2018 PROGRESS HNO ID: [id number] Author: Debby Saucedo Service: Hospital Medicine Author [...] 1400 vte non-pharmacologic prophylaxis - none indicated (tx,oh) 11/22/18 1400 activity - mobilize patient (tx,nh) VTE Prophylaxis: VTE prophylaxis appropriate Plan of care discussed with: Provider, RN, Patient SIGNATURE: Debby Saucedo MD PATIENT NAME: Amol Taylor DATE: November 28, 2018 TIME: 5:23 PM PAGER/CONTACT #: [phone] [facility] PROGRESS HNO ID: [id number] Author: Maribel Hearn (Rt) ADELA Kaplan Service: Radiology Author Type: Clinical Wire Fence Builder Type: Progress Notes Filed: 11/28/2018 12:51 PM [...] IV DATA: Not applicable SIGNED BY: Shruthi LORA November 28, 2018 12:50 PM [facility] PROGRESS HNO ID: [id number] Author: Debby Saucedo Service: Hospital Medicine Author Type: Physician Type: Progress Notes Filed: 11/27/2018 11:23 PM Note Text: SERVICE DATE: 11/27/2018 SERVICE TIME: 11:22 PM HOSPITAL MEDICINE PROGRESS NOTE NIGHT AND WEEKEND COVERAGE: Days: [phone], please page me for patient issues. Nights: [phone], please page CC Hospitalist Night coverage pager [phone] HPI SUBJECTIVE Interval Events: no complaint OBJECTIVE [...] 1400 vte non-pharmacologic prophylaxis - none indicated (tx,oh) 11/22/18 1400 activity - mobilize patient (tx,nh) VTE Prophylaxis: VTE prophylaxis appropriate Plan of care discussed with: Provider, RN, Patient SIGNATURE: Debby Saucedo MD PATIENT NAME: Amol Taylor DATE: November 27, 2018 TIME: 11:22 PM PAGER/CONTACT #: [phone] Normal [facility] XR ABDOMEN 1V SUPINEon 11-28 [...] colon. Persistent gaseous distention of bowel loops Media Consultant Outside Sales: FERNANDA Transcribe Date/Time: Nov 28 2018 1:15P Dictated by : LEONEL DE SANTIAGO MD This examination was interpreted and the report reviewed and electronically signed by: LEONEL DE SANTIAGO MD on Nov 28 2018 1:16PM EST [id number] CN Normal [facility] Basic Metabolic Panlon 11-27 Anion gap [Moles/Vol] 12 mmol/L Normal 9-18 [facility] Calcium [Mass/Vol] 9.1 mg/dL Normal 8.5-10.2 [facility] ospital Chloride [Moles/Vol] 106 mmol/L High 97-105 [facility] CO2 [Moles/Vol] 22 mmol/L Normal 22-30 [facility] Creatinine [Mass/Vol] 0.94 mg/dL Normal 0.73-1.22 [facility] eGFR- Amer. >60 Normal [facility] ospital GFR/1.73 sq M predicted among non-blacks MDRD (S/P/Bld) [Vol rate/Area] mL/min/{1.73_m2} Normal [facility] Comment on above: Result Comment: [...] ospital Comment on above: Result Comment: The [place] Diabetes Association (ADA) provides guidance for cutoff [...] Standards of Medical Care in Diabetes 2016, [place] [employer]. Diabetes Care. 2016.39(Suppl 1). Potassium [Moles/Vol] 4.2 mmol/L Normal 3.7-5.1 [facility] Sodium [Moles/Vol] 140 mmol/L Normal 136-144 [facility] Urea nitrogen [Mass/Vol] 6 mg/dL Low 9-24 [facility] CASE MANAGEMon 11-27-2018 CASE MANAGEM HNO ID: [id number] Author: Kristyn (Rn) MILLER Balbuena Service: Care Management Author Type: Registered [...] a bowel prep to remove prior contrast. Crate Builder will continue to follow. Will notify pt's long term closer to time of discharge. SIGNATURE: Kristyn Balbuena RN PATIENT NAME: Amol Taylor DATE: November 27, 2018 TIME: 3:45 PM PAGER/CONTACT #: [phone] Normal [facility] CBCon 11-27-2018 Absolute nRBC <0.01 [facility]0.01 [facility] E[facility]th[facility] distribution width (RBC) [Ratio] 11.9 % Normal 11.5-15.0 [facility] Hematocrit (Bld) [Volume fraction] 33.8 % Low 39.0-51.0 [facility] Hemoglobin (Bld) [Mass/Vol] 10.9 g/dL Low 13.0-17.0 [facility] MCH (RBC) [Entitic mass] 31.9 pG Normal 26.0-34.0 [facility] MCHC (RBC) [Mass/Vol] 32.2 g/dL Normal 30.5-36.0 [facility] MCV (RBC) [Entitic vol] 98.8 fL Normal 80.0-100.0 [facility] Platelet mean volume (Bld) [Entitic vol] 9.6 fL Normal 9.0-12.7 [facility] l Platelets (Bld) [#/Vol] 200 10*3/uL Normal 150-400 [facility] RBC (Bld) [#/Vol] 3.42 10*6/uL Low 4.20-6.00 [facility] WBC (Bld) [#/Vol] 7.38 10*3/uL Normal 3.70-11.00 [facility] CONSULT PROGon 11-27-2018 CONSULT PROG HNO ID: [id number] Author: Citlali Escalante) Zacharybaseedmund Service: Gastroenterology Author Type: Nurse Practitioner Type: [...] D/W Dr. Rogel ? Citlali Alford APRN.CNP [facility] Gastroenterology [facility] Consult SIGNATURE: Citlali Alford APRN.CNP PATIENT NAME: Amol Taylor DATE: November 27, 2018 TIME: 2:18 PM PAGER: [phone] [facility] NURSING PROGon 11-27-2018 NURSING PROG HNO ID: [id number] Author: Belle Monteiro (RnVenkat Leon RN Service: Nursing Author Type: Registered Nurse Type: Nursing Progress Note Filed: 11/27/2018 11:41 AM Note Text: Nursing Progress Note Patient Name: Amol Taylor Patient Location: / Daily Note:0815 Dozing, easily awakened. Denies any pain. Somewhat irritable. Relates wants to sleep. Previous shift related pt to be NPO. According to [facility], he was ordered a clear liquid diet [...] note was completed by: Belle Leon RN [facility] NURSING PROG HNO ID: [id number] Author: Vangie Issa) MILLER Zuniga Service: Nursing Author Type: Registered Nurse Type: Nursing Progress Note Filed: 11/27/2018 6:00 AM Note Text: Nursing Progress Note Patient Name: Amol Taylor Patient Location: / Daily Note: Left arm IV infiltrated. Arm swollen . IV removed. Ice bag applied and arm elevated. This note was completed by: Vangie Zuniga RN [facility] XR ABD 2V SUPINE [...] earlier. The bowel gas pattern is nonobstructive. Media Consultant Outside Sales: [facility] Transcribe Date/Time: Nov 27 2018 6:45P Dictated by : EMILIA ANGEL MD This examination was interpreted and the report reviewed and electronically signed by: EMILIA ANGEL MD on Nov 27 2018 6:46PM EST [id number] CN Normal [facility] Basic Metabolic Panlon 11-26 Anion gap [Moles/Vol] 11 mmol/L Normal 9-18 [facility] Calcium [Mass/Vol] 8.8 mg/dL Normal 8.5-10.2 [facility] Chloride [Moles/Vol] 104 mmol/L Normal 97-105 [facility] CO2 [Moles/Vol] 24 mmol/L Normal 22-30 [facility] Creatinine [Mass/Vol] 0.94 mg/dL Normal 0.73-1.22 [facility] eGFR- Amer. >60 Normal [facility] GFR/1.73 sq M predicted among non-blacks MDRD (S/P/Bld) [Vol rate/Area] mL/min/{1.73_m2} Normal [facility] Comment on above: Result Comment: [...] GFR. Glucose [Mass/Vol] 114 mg/dL High 74-99 [facility] Comment on above: Result Comment: The [place] Diabetes Association (ADA) provides guidance for cutoff [...] Standards of Medical Care in Diabetes 2016, [place] Diabetes Association. Diabetes Care. 2016.39(Suppl 1). Potassium [Moles/Vol] 4.4 mmol/L Normal 3.7-5.1 [facility] Sodium [Moles/Vol] 139 mmol/L Normal 136-144 [facility] ospital Urea nitrogen [Mass/Vol] 7 mg/dL Low 9-24 [facility] C-Reactive Proteinon 019 CRP [Mass/Vol] 13.7 mg/dL High <0.9 [facility] Comment on above: Performed By: #### W SR ####[facility] [id number] [place], [place] [phone] CBCon 11-26-2018 Absolute nRBC <0.01 Normal <0.01 [facility] Erythrocyte distribution width (RBC) [Ratio] 11.9 % Normal 11.5-15.0 [facility] Hematocrit (Bld) [Volume fraction] 32.7 % Low 39.0-51.0 [facility] Hemoglobin (Bld) [Mass/Vol] 10.6 g/dL Low 13.0-17.0 [facility] MCH (RBC) [Entitic mass] 32.1 pG Normal 26.0-34.0 [facility] MCHC (RBC) [Mass/Vol] 32.4 g/dL Normal 30.5-36.0 [facility] MCV (RBC) [Entitic vol] 99.1 fL Normal 80.0-100.0 [facility] Platelet mean volume (Bld) [Entitic vol] 9.0 fL Normal 9.0-12.7 [facility] Platelets (Bld) [#/Vol] 173 10*3/uL Normal 150-400 [facility] RBC (Bld) [#/Vol] 3.30 10*6/uL Low 4.20-6.00 [facility] WBC (Bld) [#/Vol] 9.38 10*3/uL Normal 3.70-11.00 [facility] CONSULTon 11-26-2018 CONSULT HNO ID: [id number] Author: Citlali Escalante) Rocío Service: Gastroenterology Author Type: Nurse Practitioner Type: [...] meal each day.) Disp: 90 capsule Rfl: 08/07/2016 at 0600 finasteride (PROSCAR) 5 mg [...] Continue to monitor D/W Dr. Pebbles Alford APRN.CNP [facility] Gastroenterology [facility] Consult SIGNATURE: Citlali Alford APRN.CNP PATIENT NAME: Amol Taylor DATE: November 26, 2018 TIME: 2:00 PM PAGER: [phone] [facility] PROGRESSon 11-26-2018 PROGRESS HNO ID: [id number] Author: Raquel Buckley (Pa) Service: General Surgery Author Type: Physician Brake Lining Curer Type: Progress Notes Filed: 11/26/2018 11:01 AM Note Text: Attestation signed by Kandice Artis at 11/26/2018 11:04 AM Attending Note: Gee findings confirmed. Patient examined. Discussed with the physician export sales assistant and the patient. Plan as outlined. Abd [...] 26, 2018 TIME: 10:56 AM PAGER/CONTACT #: [phone] [phone] [facility] PROGRESS HNO ID: [id number] Author: Devika Weeks (Rt) Zahira Lim Service: Radiology Author Type: Wire Fence Builder Type: Progress Notes Filed: 11/26/2018 10:07 AM [...] RT UYEN November 26, 2018 10:07 AM [facility] PROGRESS HNO ID: [id number] Author: Debby Saucedo Service: Hospital Medicine Author Type: Physician Type: Progress Notes Filed: 11/26/2018 9:32 AM Note Text: SERVICE DATE: 11/26/2018 SERVICE TIME: 9:32 AM HOSPITAL MEDICINE PROGRESS NOTE NIGHT AND WEEKEND COVERAGE: Days: [phone], please page me for patient issues. Nights: [phone], please page [facility] Hospitalist Night coverage pager [phone] HPI SUBJECTIVE Interval Events: Improved 600 cc [...] 1400 vte non-pharmacologic prophylaxis - none indicated (tx,oh) 11/22/18 1400 activity - mobilize patient (tx,nh) VTE Prophylaxis: VTE prophylaxis appropriate Plan of care discussed with: Provider, RN, Patient SIGNATURE: Debby Saucedo MD PATIENT NAME: Amol Taylor DATE: November 26, 2018 TIME: 9:32 AM PAGER/CONTACT #: [phone] Normal [facility] Sed Rate [place] 31 mm/hr High 0-15 [facility] Comment on above: Performed By: #### W ####[facility] [id number] [place], [place] [phone] XR CHEST 1V FRONTAL PORTon 0 11-26-2018 [...] . IMPRESSION: Left lower lobe subsegmental atelectasis Media Consultant Outside Sales: PSC[employer] Transcribe Date/Time: Nov 26 2018 10:51A Dictated by : JORDYN MONCADA MD This examination was interpreted and the report reviewed and electronically signed by: JORDYN MONCADA MD on Nov 26 2018 10:53AM EST [id number] CN Normal [facility] Basic Metabolic Panlon 11-25 Anion gap [Moles/Vol] 11 mmol/L Normal 9-18 [facility] Calcium [Mass/Vol] 8.5 mg/dL Normal 8.5-10.2 [facility] Chloride [Moles/Vol] 104 mmol/L Normal 97-105 [facility] CO2 [Moles/Vol] 25 mmol/L Normal 22-30 [facility] Creatinine [Mass/Vol] 0.97 mg/dL Normal 0.73-1.22 [facility] eGFR- Amer. >60 Normal [facility]ital GFR/1.73 sq M predicted among non-blacks MDRD (S/P/Bld) [Vol rate/Area] mL/min/{1.73_m2} Normal [facility] Comment on above: Result Comment: [...] GFR. Glucose [Mass/Vol] 108 mg/dL High 74-99 [facility] Comment on above: Result Comment: The [place] Diabetes Association (ADA) provides guidance for cutoff [...] Standards of Medical Care in Diabetes 2016, [place] Diabetes Association. Diabetes Care. 2016.39(Suppl 1). Potassium [Moles/Vol] 4.0 mmol/L Normal 3.7-5.1 [facility] Sodium [Moles/Vol] 140 mmol/L Normal 136-144 [facility]ital Urea nitrogen [Mass/Vol] 9 mg/dL Normal 9-24 [facility] CBCon 11-25-2018 Absolute nRBC <0.01 Normal <0.01 [facility] Erythrocyte distribution width (RBC) [Ratio] 12.0 % Normal 11.5-15.0 [facility] Hematocrit (Bld) [Volume fraction] 32.1 % Low 39.0-51.0 [facility] Hemoglobin (Bld) [Mass/Vol] 10.2 g/dL Low 13.0-17.0 [facility] MCH (RBC) [Entitic mass] 32.0 pG Normal 26.0-34.0 [facility] MCHC (RBC) [Mass/Vol] 31.8 g/dL Normal 30.5-36.0 [facility] MCV (RBC) [Entitic vol] 100.6 fL High 80.0-100.0 [facility] Platelet mean volume (Bld) [Entitic vol] 9.4 fL Normal 9.0-12.7 [facility] l Platelets (Bld) [#/Vol] 156 10*3/uL Normal 150-400 [facility] RBC (Bld) [#/Vol] 3.19 10*6/uL Low 4.20-6.00 [facility] WBC (Bld) [#/Vol] 8.65 10*3/uL Normal 3.70-11.00 [facility] CONSULT PROGon 11-25-2018 CONSULT PROG HNO ID: [id number] Author: Elsa Kaur Service: General Surgery Author Type: Physician Brake Lining Curer Type: Consult Progress Note Filed: 11/25/2018 9:35 AM Note Text: Attestation signed by Zoila Slater at 11/25/2018 11:22 AM [facility] STAFF PHYSICIAN NOTE OF PERSONAL INVOLVEMENT IN CARE Feels well with no c/o pain or nausea BM reported Abd soft, reducible hernia AXR with cont dilated loops Check SBFT I have reviewed the documentation above obtained and documented by the Physician Brake Lining Curer and have reviewed and updated the problem [...] 25, 2018 TIME: 8:54 AM PAGER/CONTACT #: [phone] [facility] PROGRESSon 11-25-2018 PROGRESS HNO ID: [id number] Author: Debby Saucedo Service: Hospital Medicine Author Type: Physician Type: Progress Notes Filed: 11/25/2018 9:19 PM Note Text: SERVICE DATE: 11/25/2018 SERVICE TIME: 9:19 PM HOSPITAL MEDICINE PROGRESS NOTE NIGHT AND WEEKEND COVERAGE: Days: [phone], please page me for patient issues. Nights: [phone], please page [facility] Hospitalist Night coverage pager [phone] HPI SUBJECTIVE Interval Events: No Change no [...] Current Assessment AND Plan Assessment: Transferred from [facility] to [facility] per family request CT abdomen/pelvis (11/22/18, OSH): mid distal small bowel obstruciton likely due to adhesion at site of prior small bowel-small bowel anastomosis NGT placed at outside hospital PLAN: Serial KUBs NPO except meds IVF, monitor for signs of fluid overload NGT to [facility] Surgery consulted Urinary retention 11/24/2018 - Present [...] 1400 vte non-pharmacologic prophylaxis - none indicated (tx,oh) 11/22/18 1400 activity - mobilize patient (tx,nh) VTE Prophylaxis: VTE prophylaxis appropriate Plan of care discussed with: Provider, RN, Patient SIGNATURE: Debby Saucedo MD PATIENT NAME: Amol Taylor DATE: November 25, 2018 TIME: 9:19 PM PAGER/CONTACT #: [phone] [facility] PROGRESS HNO ID: [id number] Author: Ronan Fowler (Tech) Service: Radiology Author Type: Wire Fence Builder Type: Progress Notes Filed: 11/25/2018 8:13 AM [...] IV DATA: Not applicable SIGNED BY: Maday LORA November 25, 2018 8:13 AM [facility] XR ABD 2V SUPINE [...] Anastomotic sutures noted within the left hemiabdomen. Media Consultant Outside Sales: [employer] Transcribe Date/Time: Nov 25 2018 8:35A Dictated by : ANASTACIO PERKINS MD This examination was interpreted and the report reviewed and electronically signed by: ANASTACIO PERKINS MD on Nov 25 2018 8:37AM EST [id number] CN [facility] XR SMALL BOWEL SERIESon 11-04 [...] Contrast enters the colon within one hour Media Consultant Outside Sales: [facility] Transcribe Date/Time: Nov 25 2018 4:58P Dictated by : LEONEL DE SANTIAGO MD This examination was interpreted and the report reviewed and electronically signed by: LEONEL DE SANTIAGO MD on Nov 25 2018 5:23PM EST [id number] CN Normal [facility] Basic Metabolic Panlon 11-24 Anion gap [Moles/Vol] 13 mmol/L Normal 9-18 [facility] Calcium [Mass/Vol] 8.3 mg/dL Low 8.5-10.2 [facility] Chloride [Moles/Vol] 103 mmol/L Normal 97-105 [facility] CO2 [Moles/Vol] 24 mmol/L Normal 22-30 [facility] Creatinine [Mass/Vol] 0.98 mg/dL Normal 0.73-1.22 [facility] eGFR- Amer. >60 Normal [facility] GFR/1.73 sq M predicted among non-blacks MDRD (S/P/Bld) [Vol rate/Area] mL/min/{1.73_m2} Normal [facility] Comment on above: Result Comment: [...] ospital Comment on above: Result Comment: The [place] Diabetes Association (ADA) provides guidance for cutoff [...] Standards of Medical Care in Diabetes 2016, [place] Diabetes [employer]. Diabetes Care. 2016.39(Suppl 1). Potassium [Moles/Vol] 3.8 mmol/L Normal 3.7-5.1 [facility] Sodium [Moles/Vol] 140 mmol/L Normal 136-144 [facility] Urea nitrogen [Mass/Vol] 20 mg/dL Normal 9-24 [facility] CBCon 11-24-2018 Absolute nRBC <0.01 [facility]0.01 [facility] Erythrocyte distribution width (RBC) [Ratio] 12.2 % Normal 11.5-15.0 [facility] Hematocrit (Bld) [Volume fraction] 33.2 % Low 39.0-51.0 [facility] Hemoglobin (Bld) [Mass/Vol] 10.6 g/dL Low 13.0-17.0 [facility] MCH (RBC) [Entitic mass] 32.4 pG Normal 26.0-34.0 [facility] MCHC (RBC) [Mass/Vol] 31.9 g/dL Normal 30.5-36.0 [facility] MCV (RBC) [Entitic vol] 101.5 fL High 80.0-100.0 [facility] Platelet mean volume (Bld) [Entitic vol] 9.1 fL Normal 9.0-12.7 [facility] Platelets (Bld) [#/Vol] 163 10*3/uL Normal 150-400 [facility] RBC (Bld) [#/Vol] 3.27 10*6/uL Low 4.20-6.00 [facility] WBC (Bld) [#/Vol] 10.79 10*3/uL Normal 3.70-11.00 [facility] CONSULT PROGon 11-24-2018 CONSULT PROG HNO ID: [id number] Author: Wellington Morris III Service: General Surgery [...] (HCC) follows with neuro Dr. Shawnee Toribio [place] PAST SURGICAL HISTORY Procedure Laterality Date - [...] the stomach. Impression: Unchanged small bowel dilatation Media Consultant Outside Sales: FERNANDA ? Transcribe Date/Time: Nov 23 2018 [...] (fl,oh) 11/22/18 1400 activity - mobilize patient (tx,oh) VTE Prophylaxis: VTE prophylaxis appropriate SIGNATURE: Wellington Morris III, MD PATIENT NAME: Amol Taylor DATE: November 24, 2018 TIME: 7:19 AM PAGER/CONTACT #: [facility] NURSING PROGon 11-24-2018 NURSING PROG HNO ID: [id number] Author: Ranjana BeltreRn) Ramirez RN Service: Nursing Author Type: Registered Nurse Type: Nursing Progress Note Filed: 11/24/2018 9:08 PM Note Text: Nursing Progress Note Patient Name: Amol Taylor [facility] [place] [address] Daily Note: Following page sent to cross coverage: Re: Room [facility], Amol Taylor. Pt has a vagus nerve stimulator. Can we have an order for continuous pulse ox to keep an eye on his HR in the event that he has a seizure? Thank you, Shae Guzmán RN [phone] Orders received This note was completed by: Ranjana Guzmán RN [facility] NURSING PROG HNO ID: [id number] Author: Bel BeltreRn) MILLER Ye Service: Nursing Author Type: Registered Nurse Type: Nursing Progress Note Filed: 11/24/2018 8:57 PM Note Text: Nursing Progress Note Patient Name: Amol Taylor Patient Location[place] [address] [address] 1930- Pt transferred into recliner chair late [...] passing flatus. This note was completed by: eBl Ye RN [facility] PROGRESSon 11-24-2018 PROGRESS HNO ID: [id number] Author: Yolanda Gonzalez (Rt) Service: Radiology Author Type: Wire Fence Builder Type: Progress Notes Filed: 11/24/2018 3:01 PM [...] RT Selvin November 24, 2018 3:01 PM [facility] PROGRESS HNO ID: [id number] Author: Toshia Vaughn (Rt) Service: Radiology Author Type: Wire Fence Builder Type: Progress Notes Filed: 11/24/2018 10:14 AM [...] LORA (R) November 24, 2018 10:14 AM [facility] PROGRESS HNO ID: [id number] Author: Debby Saucedo Service: Hospital Medicine Author Type: Physician Type: Progress Notes Filed: 11/24/2018 9:38 AM Note Text: SERVICE DATE: 11/24/2018 SERVICE TIME: 9:37 AM HOSPITAL MEDICINE PROGRESS NOTE NIGHT AND WEEKEND COVERAGE: Days: [phone], please page me for patient issues. Nights: [phone], please page CC Hospitalist Night coverage pager [phone] HPI SUBJECTIVE Interval Events: denies pain no [...] Current Assessment AND Plan Assessment: Transferred from [facility] to [facility] per family request CT abdomen/pelvis (11/22/18, OSH): mid distal small bowel obstruciton likely due to adhesion at site of prior small bowel-small bowel anastomosis NGT placed at outside hospital PLAN: Serial KUBs NPO except meds IVF, monitor for signs of fluid overload NGT to [facility] Surgery consulted Urinary retention 11/24/2018 - Present [...] 1400 vte non-pharmacologic prophylaxis - none indicated (tx,oh) 11/22/18 1400 activity - mobilize patient (tx,nh) VTE Prophylaxis: VTE prophylaxis appropriate Plan of care discussed with: Provider, RN, Patient SIGNATURE: Debby Saucedo MD PATIENT NAME: Amol Taylor DATE: November 24, 2018 TIME: 9:37 AM PAGER/CONTACT #: [phone] [facility] XR ABDOMEN 1V SPECIFYon [...] placement, tube could be advanced several centimeters. Media Consultant Outside Sales: [employer] Transcribe Date/Time: Nov 24 2018 5:09P Dictated by : SAVANA URIARTE MD This examination was interpreted and the report reviewed and electronically signed by: SAVANA URIARTE MD on Nov 24 2018 5:13PM EST [id number] [facility] XR ABDOMEN 1V SUPINEon 11-24 XR ABDOMEN [...] either early small bowel obstruction or ileus. Media Consultant Outside Sales: F[employer]NA[employer]DA Transcribe Date/Time: Nov 24 2018 11:44A Dictated by : DONNA RIVERA MD This examination was interpreted and the report reviewed and electronically signed by: DONNA RIVERA MD on Nov 24 2018 11:45AM EST [id number] CN Normal [facility] Basic Metabolic Panlon 11-23 Anion gap [Moles/Vol] 12 mmol/L Normal 9-18 [facility] Calcium [Mass/Vol] 8.8 mg/dL Normal 8.5-10.2 [facility] Chloride [Moles/Vol] 105 mmol/L Normal 97-105 [facility] CO2 [Moles/Vol] 27 mmol/L Normal 22-30 [facility] Creatinine [Mass/Vol] 1.18 mg/dL Normal 0.73-1.22 [facility] eGFR- Amer. >60 Normal [facility] GFR/1.73 sq M predicted among non-blacks MDRD (S/P/Bld) [Vol rate/Area] mL/min/{1.73_m2} Normal [facility] Comment on above: Result Comment: [...] GFR. Glucose [Mass/Vol] 93 mg/dL Normal 74-99 [facility] Comment on above: Result Comment: The [place] Diabetes Association (ADA) provides guidance for cutoff [...] Standards of Medical Care in Diabetes 2016, [place] Diabetes Association. Diabetes Care. 2016.39(Suppl 1). Potassium [Moles/Vol] 4.0 mmol/L Normal 3.7-5.1 [facility] Sodium [Moles/Vol] 144 mmol/L Normal 136-144 [facility] Urea nitrogen [Mass/Vol] 30 mg/dL High 9-24 [facility] CASE [facility]: [id number] Author: Niurka BeltreRn) MILLER Briseno Service: Care Management Author Type: Registered Nurse Type: Care Mgt Initial Assessment Filed: 11/23/2018 3:42 PM Note Text: CARE MANAGEMENT: ASSESSMENT AND DISCHARGE PLAN SERVICE DATE: 11/23/2018 SERVICE TIME: 2:57 PM PRIMARY CARE PHYSICIAN: Caroline Cochran MD ADMISSION STATUS: Inpatient Needs Prior to Discharge: To Be Determined MEDICAL: Patient/Representati ve Stated Goals: per sister - return to [facility] Health Insurance: [facility] DUAL COMPLETE O SNP Medicaid Health Issues Impacting Discharge Plan: None Last Discharge Date: 08/14/16 Is this Within the Past 30 days? No Advance Directive: Current Advance Directive: Other Document: See Comment(pt has valentínhip papers in chart) In Chart: Yes Up To Date and Valid: Yes Health Literacy Assessment: Patient is unable to complete at this time due to pt MRDD Gerardomiah is his sister Susan Smith. FUNCTIONAL AND COGNITIVE/BEHAVIORAL PRIOR TO ADMISSION: Baseline Mental Status: Alert AND Oriented, Person, Situation and Developmental Delay Functional Status: Dependent Does Patient Currently Receive Any Community Services or Home Care? None care home [employer] Equipment Prior to Admission: Wheelchair long term set up to accomidate Has the Patient Been in a Group Home Facility in the Past 30 days? No SOCIAL: Living Arrangement: Long-Term [facility] Lives With: from long term Financial Resources: Disabled Primary Contact: Extended Emergency [...] at this time due to pt from long term. Are you interested in bedside delivery of [...] OF CHOICE EXPLAINED: N/A POTENTIAL TRANSITION PLANS Long-Term/Supervised Living Spoke with pts Sister Susan Smith [phone]. Susan is pts guardian and the paperwork is in the EMR. Per sister plan is for to return to [facility]. The director there is Laura Rowan [phone]. The long term may be able to transport pt upon d/c . Pt uses a WC but can walk very short distances with assist and pivot transfer. Pt participates in a work program and may need a return to work paperwork. CM to follow SIGNATURE: Niurka Briseno RN PATIENT NAME: Amol Taylor DATE: November 23, 2018 TIME: 2:57 PM PAGER/CONTACT #: [phone] Normal [facility] CBCon 11-23-2018 Absolute nRBC <0.01 Normal <0.01 [facility] Erythrocyte distribution width (RBC) [Ratio] 12.6 % Normal 11.5-15.0 [facility] Hematocrit (Bld) [Volume fraction] 35.7 % Low 39.0-51.0 [facility] Hemoglobin (Bld) [Mass/Vol] 11.5 g/dL Low 13.0-17.0 [facility] MCH (RBC) [Entitic mass] 32.5 pG Normal 26.0-34.0 [facility] MCHC (RBC) [Mass/Vol] 32.2 g/dL Normal 30.5-36.0 [facility] MCV (RBC) [Entitic vol] 100.8 fL High 80.0-100.0 [facility] Platelet mean volume (Bld) [Entitic vol] 9.2 fL Normal 9.0-12.7 [facility] l Platelets (Bld) [#/Vol] 191 10*3/uL Normal 150-400 [facility] RBC (Bld) [#/Vol] 3.54 10*6/uL Low 4.20-6.00 [facility] WBC (Bld) [#/Vol] 9.96 10*3/uL Normal 3.70-11.00 [facility] PROGRESSon 11-23-2018 PROGRESS HNO ID: [id number] Author: Toshia BeltreRtVenkat Vaughn Service: Radiology Author Type: Wire Fence Builder Type: Progress Notes Filed: 11/23/2018 1:04 PM [...] IV DATA: Not applicable SIGNED BY: Beena Rubio RT (R) November 23, 2018 1:04 PM Normal [facility] PROGRESS HNO ID: [id number] Author: Jaime Lora (Rt) Joshua VILLALPANDO Service: Radiology Author Type: Wire Fence Builder Type: Progress Notes Filed: 11/23/2018 12:34 PM [...] IV DATA: Not applicable SIGNED BY: RT Miguel II November 23, 2018 12:33 PM Normal [facility] PROGRESS HNO ID: [id number] Author: Debby Saucedo Service: Hospital Medicine Author Type: Physician Type: Progress Notes Filed: 11/23/2018 11:01 AM Note Text: SERVICE DATE: 11/23/2018 SERVICE TIME: 11:00 AM HOSPITAL MEDICINE PROGRESS NOTE NIGHT AND WEEKEND COVERAGE: Days: [phone], please page me for patient issues. Nights: [phone], please page CC Hospitalist Night coverage pager [phone] HPI SUBJECTIVE Interval Events: No Change no [...] (Principal) Small bowel obstruction due to adhesions ([facility]) 04/26/2014 - Present Current Assessment AND Plan Assessment: Transferred from [facility] to [facility] per family request CT abdomen/pelvis (11/22/18, OSH): mid distal small bowel obstruciton likely due to adhesion at site of prior small bowel-small bowel anastomosis NGT placed at outside hospital PLAN: Serial KUBs NPO except meds IVF, monitor for signs of fluid overload NGT to [facility] Surgery consulted Seizure (HCC) 11/22/2018 - Present Current Assessment [...] 1400 vte non-pharmacologic prophylaxis - none indicated (tx,oh) 11/22/18 1400 activity - mobilize patient (tx,nh) VTE Prophylaxis: VTE prophylaxis appropriate Plan of care discussed with: Provider, RN, Patient ; Sister POA SIGNATURE: Debby Saucedo MD PATIENT NAME: Amol Taylor DATE: November 23, 2018 TIME: 11:00 AM PAGER/CONTACT #: [phone] [facility] PROGRESS HNO ID: [id number] Author: Wellington Morris III Service: General Surgery [...] 1400 vte non-pharmacologic prophylaxis - none indicated (tx,oh) 11/22/18 1400 activity - mobilize patient (tx,nh) VTE Prophylaxis: VTE prophylaxis appropriate SIGNATURE: Wellington Morris III, MD PATIENT NAME: Amol Taylor DATE: November 23, 2018 TIME: 9:20 AM PAGER/CONTACT #: [facility] XR ABDOMEN 1V SUPINEon [...] the stomach. Impression: Unchanged small bowel dilatation Media Consultant Outside Sales: [employer]DA Transcribe Date/Time: Nov 23 2018 2:23P Dictated by : LIBRA GARCIA MD This examination was interpreted and the report reviewed and electronically signed by: LIBRA GARCIA MD on Nov 23 2018 2:25PM EST [id number] Normal [facility] CBCon 11-22-2018 Absolute nRBC <0.01 [facility]0.01 [facility]th[facility] distribution width (RBC) [Ratio] 12.6 % Normal 11.5-15.0 [facility] Hematocrit (Bld) [Volume fraction] 39.9 % Normal 39.0-51.0 [facility] Hemoglobin (Bld) [Mass/Vol] 12.7 g/dL Low 13.0-17.0 [facility] MCH (RBC) [Entitic mass] 31.8 pG Normal 26.0-34.0 [facility] MCHC (RBC) [Mass/Vol] 31.8 g/dL Normal 30.5-36.0 [facility] MCV (RBC) [Entitic vol] 100.0 fL Normal 80.0-100.0 [facility] Platelet mean volume (Bld) [Entitic vol] 9.2 fL Normal 9.0-12.7 [facility] Platelets (Bld) [#/Vol] 251 10*3/uL Normal 150-400 [facility] RBC (Bld) [#/Vol] 3.99 10*6/uL Low 4.20-6.00 [facility] WBC (Bld) [#/Vol] 14.07 10*3/uL High 3.70-11.00 [facility] Comp Metabolic Panelon 11-22 Albumin [Mass/Vol] 4.4 g/dL Normal 3.9-4.9 [facility] ALP [Catalytic activity/Vol] 127 U/L High 38-113 [facility] ALT [Catalytic activity/Vol] 12 U/L Normal 10-54 [facility] Anion gap [Moles/Vol] 12 mmol/L Normal 9-18 [facility] AST [Catalytic activity/Vol] 12 U/L Low 14-40 [facility] Bilirubin [Mass/Vol] 0.4 mg/dL Normal 0.2-1.3 [facility] Calcium [Mass/Vol] 9.7 mg/dL Normal 8.5-10.2 [facility] Chloride [Moles/Vol] 105 mmol/L Normal 97-105 [facility] CO2 [Moles/Vol] 29 mmol/L Normal 22-30 [facility] Creatinine [Mass/Vol] 1.39 mg/dL High 0.73-1.22 [facility] eGFR- Amer. >60 Normal [facility] GFR/1.73 sq M predicted among non-blacks MDRD (S/P/Bld) [Vol rate/Area] 52 . Normal [facility] Comment on above: Result Comment: [...] ospital Comment on above: Result Comment: The [place] Diabetes Association (ADA) provides guidance for cutoff [...] Standards of Medical Care in Diabetes 2016, [place] Diabetes Association. Diabetes Care. 2016.39(Suppl 1). Potassium [Moles/Vol] 4.2 mmol/L Normal 3.7-5.1 [facility] Protein [Mass/Vol] 7.5 g/dL Normal 6.3-8.0 [facility] Sodium [Moles/Vol] 146 mmol/L High 136-144 [facility] Urea nitrogen [Mass/Vol] 30 mg/dL High 9-24 [facility] HISTORY PHYSICALon 9 HISTORY PHYSICAL HNO ID: [id number] Author: Yolanda Alford Service: Hospital Medicine Author Type: Physician Type: HANDP Filed: 11/22/2018 1:58 PM Note Text: SERVICE DATE: 11/22/2018 SERVICE TIME: 1:58 PM HOSPITAL MEDICINE HISTORY AND PHYSICAL PCP: Caroline Cochran MD NIGHT AND WEEKEND COVERAGE: Days: [phone], please page me for patient issues. Nights: [phone], please page CC Hospitalist Night coverage pager [phone] SUBJECTIVE Chief Complaint: Nausea/vomiting HPI: Mr. 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 Patient poor historian. History taken from chart review and sign out from [employer] [facility] physician. Patient was sent to [facility] from [facility] due to concerns for multiple emesis after supper on 11/21/18. Patient states the was having an upset stomach and was found to be sticking his finger down his throat at [place] to induce vomiting. Patient underwent CT abdomen/pelvis (11/22/18, OSH): mid distal small bowel obstruciton likely due to adhesion at site of prior small bowel-small bowel anastomosis. Patient family requesting transfer to [facility]. Surgery request for admission under medicine PAST [...] Current Assessment AND Plan Assessment: Transferred from [facility] to [facility] per family request CT abdomen/pelvis (11/22/18, OSH): [...] 1400 vte non-pharmacologic prophylaxis - none indicated (tx,oh) 11/22/18 1400 activity - mobilize patient (tx,nh) VTE Prophylaxis: VTE prophylaxis appropriate SIGNATURE: Yolanda Alford MD PATIENT NAME: Amol Taylor DATE: November 22, 2018 TIME: 1:58 PM PAGER/CONTACT #: [phone] Normal [facility] Magnesiumon 11-22-2018 Magnesium [Mass/Vol] 1.8 mg/dL Normal 1.7-2.3 [facility] NURSING PROGon 11-22-2018 NURSING PROG HNO ID: [id number] Author: Emily (Rn) MILLER Dee Service: ? Author Type: Registered Nurse Type: Nursing Progress Note Filed: 11/22/2018 6:48 PM Note Text: Pt admitted from [facility] [employer] [facility] ED in a stable condition. Oriented to [...] Seizure precaution in place. Bed alarm on. Normal [facility] PROGRESSon 11-22-2018 PROGRESS HNO ID: [id number] Author: Roya Cobian) Zahira Baeza Service: Radiology Author Type: Wire Fence Builder Type: Progress Notes Filed: 11/22/2018 4:38 PM [...] Zahira Mensah November 22, 2018 4:38 PM [facility] PROGRESS HNO ID: [id number] Author: Wellington Morris III Service: General Surgery Author Type: Physician Type: Progress Notes Filed: 11/25/2018 10:53 AM Note Text: CONSULT: General surgery SERVICE SERVICE DATE: 11/22/2018 SERVICE TIME: 3:20pm REASON FOR CONSULT: SBO REQUESTING PHYSICIAN: Dr Alford PRIMARY CARE PHYSICIAN: Caroline Cochran MD Subjective Mr. Taylor is a 63 year old male who presents as a transfer from [facility] for SBO. Patient poor historian -->history also obtained from admitting physician HANDP as well as documentation from care everywhere . Attending physician Dr Morris was able to get more detailed history from prior [employer] physician before transfer. Family was not at [...] exam. FUNCTIONAL STATUS: Partially dependent-- resides in [place] PAST MEDICAL HISTORY Diagnosis Date - Mental [...] November 22, 2018 TIME: 3:58 PM PAGER: [phone] PA STUDENT PROGRESS NOTE SURGICAL SERVICES This note was generated by a PA STUDENT working under the supervision of a Physician Brake Lining Curer. As applicable, the findings, conclusions, and assessment [...] electric chart record. Patient was sent to [facility] from [facility] due to concerns for multiple emesis on 11/21/18. Patient states the was having an upset stomach and was found to be sticking his finger down his throat [place] to induce vomiting. Patient underwent CT abdomen/pelvis [...] no need to continue antibiotics SIGNATURE: America Hadley Student PATIENT NAME: Amol Taylor DATE: November [...] require surgical intervention. Wellington Morris III, MD [facility] PROGRESS HNO ID: [id number] Author: Fidelia Cheatham (Rt) Service: Radiology Author Type: Wire Fence Builder Type: Progress Notes Filed: 11/22/2018 3:07 PM [...] RT Pieter November 22, 2018 3:07 PM [facility] PROGRESS HNO ID: [id number] Author: Fidelia Ng (Rt) [place] Service: Radiology Author Type: Wire Fence Builder Type: Progress Notes Filed: 11/22/2018 3:09 PM Note Text: Radiology Service Progress Note Normal [facility] Phosphoruson 11-22-2018 Phosphate [Mass/Vol] 3.6 mg/dL Normal 2.7-4.8 [facility] XR ABD 2V SUPINE W [...] No obvious free air under the hemidiaphragms. Media Consultant Outside Sales: [facility] Transcribe Date/Time: Nov 22 2018 4:50P Dictated by : NYLA WEST MD This examination was interpreted and the report reviewed and electronically signed by: NYLA WEST MD on Nov 22 2018 4:52PM EST [id number] Normal [facility] XR ABDOMEN 1V SUPINEon 11-22 [...] bowel throughout the abdomen concerning for obstruction. Media Consultant Outside Sales: FERNANDA Transcribe Date/Time: Nov 22 2018 3:07P Dictated by : NYLA WEST MD This examination was interpreted and the report reviewed and electronically signed by: NYLA WEST MD on Nov 22 2018 3:10PM EST [id number] [facility] Lamotrigine Levelon 11-01-19 19 Lamotrigine Lvl 14.2 ug/mL 3 - 15 ug/mL [employer] Comment on above: Neither a therapeutic or [...] 2018 Levetiracetam Lvl 42 ug/[facility] Comment on above: A reference range for [...] [Mass/Vol] 20.6 ug/mL 15 - 40 ug/mL [employer] Phenobarbital Date last dose NOT REPORTED [employer] Phenobarbital Dose amount NOT REPORTED [employer] Phenobarbital Time last dose NOT REPORTED [employer] Vitamin D 25 Hydroxyon 10-31 Interpretation and review of laboratory results Abnormal [employer] Vit D, 25-Hydroxy 28.6 ng/mL Low 30 - 100 ng/mL [facility] [place] Comment on above: Reference Range: Vitamin D status Range Deficiency <20 ng/mL Mild Deficiency 20-30 ng/mL Sufficiency 30-100 ng/mL Toxicity >100 ng/mL Vital Signs Date Time Vital Sign Value Performing Clinician Facility 04-29-2023 11:37-0500 Body temperature 97.3 [degF] Bolivar Blood DO Work Phone: [facility] [employer] 04-29-2023 11:37-0500 Diastolic blood pressure 84 mm[Hg] Bolivar Blood DO [facility] 04-29-2023 11:37-0500 Heart rate 82 /min Bolivar Blood DO Work Phone: [facility] [employer] 04-29-2023 11:37-0500 Respiratory rate 16 /min Bolivar Blood DO [facility] 04-29-2023 11:37-0500 SaO2% (BldA) [Mass fraction] 98 % Bolivar Blood DO Work Phone: [facility] 04-29-2023 11:37-0500 Systolic blood pressure 97 mm[Hg] Bolivar Blood DO Work Phone: [facility] [employer] 04-29-2023 06:44-0500 Body mass index (BMI) [Ratio] 23.19 kg/m2 Bolivar Blood DO Work Phone: [facility] [employer] 04-29-2023 06:44-0500 Body weight 73.3 kg Bolivar Blood DO Work Phone: [facility] [employer] 04-24-2023 22:45-0500 Body height 177.8 cm Bolivar Blood DO Work Phone: [facility] [employer] 04-20-2023 07:15-0500 Body temperature 97.9 [degF] Edilma Eastman MD Work Phone: [facility] [employer] [facility] 04-20-2023 07:15-0500 Diastolic blood pressure 57 mm[Hg] Edilma Eastman MD Work Phone: [facility] 04-20-2023 07:15-0500 Heart rate 77 /min Edilma Eastman MD Work Phone: [facility] 04-20-2023 07:15-0500 Respiratory rate 16 /min Edilma Eastman MD Work Phone: [facility] 04-20-2023 07:15-0500 SaO2% (BldA) [Mass fraction] 96 % Edilma Eastman MD Work Phone: [facility] 04-20-2023 07:15-0500 Systolic blood pressure 94 mm[Hg] Edilma Eastman MD Work Phone: [facility] 04-20-2023 05:23-0500 Body mass index (BMI) [Ratio] 28.47 kg/m2 Edilma Eastman MD Work Phone: [facility] 04-20-2023 05:23-0500 Body weight 80 kg Edilma Eastman MD Work Phone: [facility] 04-09-2023 19:56-0500 Body height 167.6 cm Edilma Eastman MD Work Phone: [facility] 11-11-2022 11:39-0400 Hourly Rounding Melchor Rivera [facility] 11-11-2022 11:39-0400 Promise to Return Melchor Rivera [facility] 11-11-2022 11:17-0400 Heart rate 50 /min Melchor Rivera [facility] 11-11-2022 11:17-0400 SaO2% (BldA) [Mass fraction] 94 % Melchor Rivera [facility] 11-11-2022 11:17-0400 Body temperature 97.52 [degF] Melchor Rivera [facility] 11-11-2022 11:17-0400 Diastolic blood pressure 76 mm[Hg] Melchor Kensh [facility] 11-11-2022 11:17-0400 Mean blood pressure 91 mm[Hg] Melchor Kensh [facility] 11-11-2022 11:17-0400 Systolic blood pressure 122 mm[Hg] Melchor Kensh [facility] 11-11-2022 11:00-0400 Blood Pressure Location Melchor Rivera [facility] 11-11-2022 11:00-0400 Respiratory rate 18 /min Melchor Kensh [facility] 11-11-2022 10:44-0400 Hourly Rounding Melchor Rivera [facility] 11-11-2022 10:44-0400 Promise to Return Melchor Rivera [facility] 11-11-2022 09:50-0400 Hourly Rounding Melchor Rivera [facility] 11-11-2022 09:50-0400 Promise to Return Melchor Kensh [facility] 11-11-2022 09:11-0400 Diastolic blood pressure 88 mm[Hg] Melchor Kensh [facility] 11-11-2022 09:11-0400 Systolic blood pressure 115 mm[Hg] Melchro Kensh [facility] 11-11-2022 07:38-0400 Heart rate 77 /min Melchor Kensh [facility] 11-11-2022 07:38-0400 SaO2% (BldA) [Mass fraction] 94 % Melchor Kensh [facility] 11-11-2022 07:38-0400 Body temperature 98.06 [degF] Melchor Rivera [facility] 11-11-2022 07:38-0400 Diastolic blood pressure 66 mm[Hg] Melchor Rivera [facility] 11-11-2022 07:38-0400 Mean blood pressure 78 mm[Hg] Melchor Rivera [facility] 11-11-2022 07:38-0400 Systolic blood pressure 103 mm[Hg] Melchor Rivera [facility] 11-11-2022 05:03-0400 Heart rate 54 /min Melchor Rivera [facility] 11-11-2022 05:03-0400 Mean blood pressure 70 mm[Hg] Melchor Rivera [facility] 11-11-2022 01:39-0400 SaO2% (BldA) [Mass fraction] 95 % Melchor Rivera [facility] 11-11-2022 01:39-0400 Body temperature 97.88 [degF] Melchor Rivera [facility] 11-10-2022 15:00-0400 Blood Pressure Location Melchor Rivera [facility] 11-10-2022 15:00-0400 Mean blood pressure 83 mm[Hg] Melchor Rivera [facility] 11-10-2022 15:00-0400 Respiratory rate 16 /min Melchor Rivera [facility] 11-09-2022 08:00-0400 Body temperature 97.34 [degF] Melchor Rivera [facility] 11-09-2022 00:00-0400 Body temperature 97.34 [degF] Melchor Rivera [facility] 11-08-2022 15:52-0400 Body temperature 97.88 [degF] Melchor Rivera [facility] 11-08-2022 15:52-0400 Mean blood pressure 71 mm[Hg] Melchor Rivera [facility] 11-08-2022 14:09-0400 Heart rate 84 /min Melchor Rivera [facility] 11-08-2022 13:10-0400 Mean blood pressure 91 mm[Hg] Melchor Rivera [facility] 11-08-2022 08:57-0400 Heart rate 101 /min Melchor Rivera [facility] 09-07-2022 07:45-0400 Body temperature 97.39 [degF] Lyla Zepeda MD [facility] Phone: [facility] [employer] 09-07-2022 07:45-0400 Diastolic blood pressure 66 mm[Hg] Lyla Zepeda MD Work Phone: [facility] 09-07-2022 07:45-0400 Heart rate 58 /min Lyla Zepeda MD Work Phone: [facility] [employer] 09-07-2022 07:45-0400 Respiratory rate 22 /min Lyla Zepeda MD Work Phone: [facility] 09-07-2022 07:45-0400 SaO2% (BldA) [Mass fraction] 100 % Lyla Zepeda MD Work Phone: [facility] 09-07-2022 07:45-0400 Systolic blood pressure 122 mm[Hg] Lyla Zepeda MD Work Phone: [facility] 09-07-2022 04:30-0400 Body mass index (BMI) [Ratio] 29.79 kg/m2 Lyla Zepeda MD Work Phone: [facility] [employer] 09-07-2022 04:30-0400 Body weight 81.19 kg Lyla Zepeda MD Work Phone: [facility] 09-04-2022 12:26-0400 Body height 165.1 cm Lyla Zepeda MD Work Phone: [facility] 06-27-2022 12:00-0400 Hourly Rounding Kari Robenstine [facility] 06-27-2022 12:00-0400 Promise to Return Kari Robenstine [facility] 06-27-2022 11:51-0400 Blood Pressure Location Kari Robenstine [facility] 06-27-2022 11:51-0400 Body temperature 98.06 [degF] Kari Robenstine [facility] 06-27-2022 11:51-0400 Diastolic blood pressure 64 mm[Hg] Kari Robenstine [facility] 06-27-2022 11:51-0400 Heart rate 81 /min Kari Robenstine [facility] 06-27-2022 11:51-0400 Mean blood pressure 78 mm[Hg] Kari Robenstine [facility] 06-27-2022 11:51-0400 Respiratory rate 18 /min Kari Robenstine [facility] 06-27-2022 11:51-0400 SaO2% (BldA) [Mass fraction] 94 % Kari Robenstine [facility] 06-27-2022 11:51-0400 Systolic blood pressure 105 mm[Hg] Kari Robenstine [facility] 06-27-2022 11:20-0400 Hourly Rounding Kari Robenstine [facility] 06-27-2022 11:20-0400 Promise to Return Kari Robenstine [facility] 06-27-2022 10:00-0400 Hourly Rounding Kari Robenstine [facility] 06-27-2022 10:00-0400 Promise to Return Kari Robenstine [facility] 06-27-2022 08:20-0400 Diastolic blood pressure 64 mm[Hg] Kari Robenstine [facility] 06-27-2022 08:20-0400 Systolic blood pressure 107 mm[Hg] Kari Robenstine [facility] 06-27-2022 07:30-0400 Heart rate 72 /min Kari Robenstine [facility] 06-27-2022 07:30-0400 SaO2% (BldA) [Mass fraction] 95 % Kari Robenstine [facility] 06-27-2022 07:30-0400 Body temperature 98.06 [degF] Kari Robenstine [facility] 06-27-2022 07:29-0400 Diastolic blood pressure 64 mm[Hg] Kari Robenstine [facility] 06-27-2022 07:29-0400 Mean blood pressure 78 mm[Hg] Kari Robenstine [facility] 06-27-2022 07:29-0400 Systolic blood pressure 107 mm[Hg] Kari Robenstine [facility] 06-27-2022 02:02-0400 Blood Pressure Location Kari Robenstine [facility] 06-27-2022 02:02-0400 Body temperature 97.88 [degF] Kari Robenstine [facility] 06-27-2022 02:02-0400 Heart rate 67 /min Kari Robenstine [facility] 06-27-2022 02:02-0400 Mean blood pressure 90 mm[Hg] Kari Robenstine [facility] 06-27-2022 02:02-0400 Respiratory rate 20 /min Kari Robenstine [facility] 06-27-2022 02:02-0400 SaO2% (BldA) [Mass fraction] 96 % Kari Robenstine [facility] 06-26-2022 22:29-0400 Mean blood pressure 85 mm[Hg] Kari Robenstine [facility] 06-26-2022 16:25-0400 Body temperature 97.88 [degF] Kari Robenstine [facility] 06-26-2022 16:25-0400 Mean blood pressure 97 mm[Hg] Kari Robenstine [facility] 06-26-2022 11:51-0400 Body temperature 96.98 [degF] Kari Robenstine [facility] 06-26-2022 11:50-0400 Mean blood pressure 81 mm[Hg] Kari Robenstine [facility] 06-26-2022 07:48-0400 Body temperature 98.6 [degF] Kari Robenstine [facility] 06-25-2022 00:00-0400 Heart rate 82 /min Kari Robenstine [facility] 06-24-2022 22:00-0400 gluc 104 mg/dL Kari Sales [facility] 06-24-2022 01:37-0400 Heart rate 58 /min Kari Sales [facility] 06-23-2022 20:33-0400 Body temperature 97.3 [degF] Jose Ray MD Work Phone: [facility] [employer] 06-23-2022 20:33-0400 Diastolic blood pressure 71 mm[Hg] Jose Ray MD Work Phone: [facility] [employer] 06-23-2022 20:33-0400 Heart rate 57 /min Jose Ray MD Work Phone: [facility] [employer] 06-23-2022 20:33-0400 Respiratory rate 18 /min Jose Ray MD Work Phone: [facility] [employer] 06-23-2022 20:33-0400 SaO2% (BldA) [Mass fraction] 96 % Jose Ray MD Work Phone: [facility] [employer] 06-23-2022 20:33-0400 Systolic blood pressure 114 mm[Hg] Jose Ray MD Work Phone: [facility] [employer] 06-23-2022 05:39-0400 Body mass index (BMI) [Ratio] 29.38 kg/m2 Jose Ray MD Work Phone: [facility] [employer] 06-23-2022 05:39-0400 Body weight 82.56 kg Jose Ray MD Work Phone: [facility] [employer] 06-22-2022 10:07-0400 Body height 167.6 cm Jose Ray MD Work Phone: [facility] [employer] 05-12-2022 14:00-0500 Body temperature 97.5 [degF] Aron Conn DO Work Phone: [employer] 05-12-2022 14:00-0500 Diastolic blood pressure 87 mm[Hg] Aron Andes DO Work Phone: [facility] [employer] 05-12-2022 14:00-0500 Heart rate 67 /min Aron Andes DO Work Phone: [facility] [employer] 05-12-2022 14:00-0500 Respiratory rate 18 /min Aron Andes DO Work Phone: [facility] [employer] 05-12-2022 14:00-0500 SaO2% (BldA) [Mass fraction] 94 % Aron Andes DO Work Phone: [facility] [employer] 05-12-2022 14:00-0500 Systolic blood pressure 99 mm[Hg] Aron Andes DO Work Phone: [facility] [employer] 05-12-2022 05:00-0500 Body mass index (BMI) [Ratio] 29.54 kg/m2 Aron Andes DO Work Phone: [facility] [employer] 05-12-2022 05:00-0500 Body weight 83.01 kg Aron Andes DO Work Phone: [facility] [employer] 05-09-2022 08:24-0500 Body height 167.6 cm Aron Andes DO Work Phone: [facility] 09-10-2021 21:31-0400 Body temperature 97.7 [degF] Larry Timmy DO [facility] 09-10-2021 21:31-0400 Diastolic blood pressure 68 mm[Hg] Larry Warner [facility] 09-10-2021 21:31-0400 Heart rate 96 /min Larry Warner DO [facility] 09-10-2021 21:31-0400 Systolic blood pressure 128 mm[Hg] Larry Warner DO [facility] 09-01-2021 10:35-0400 Blood Pressure Location Melchor Rivera [facility] 09-01-2021 10:35-0400 Diastolic blood pressure 70 mm[Hg] Melchor Kensh [facility] 09-01-2021 10:35-0400 Heart rate 86 /min Melchor Kensh [facility] 09-01-2021 10:35-0400 Respiratory rate 16 /min Melchor Kensh [facility] 09-01-2021 10:35-0400 Systolic blood pressure 114 mm[Hg] Melchor Kensh [facility] 08-12-2021 10:30-0400 Blood Pressure Location Melchor Kensh [facility] 08-12-2021 10:30-0400 Body temperature 97.34 [degF] Melchor Kensh [facility] 08-12-2021 10:30-0400 Diastolic blood pressure 70 mm[Hg] Melchor Kensh [facility] 08-12-2021 10:30-0400 Heart rate 74 /min Melchor Kensh [facility] 08-12-2021 10:30-0400 Respiratory rate 16 /min Melchor Kensh [facility] 08-12-2021 10:30-0400 Systolic blood pressure 133 mm[Hg] Melchor Kensh [facility] 07-29-2021 10:01-0400 Blood Pressure Location Melchor Kensh [facility] 07-29-2021 10:01-0400 Body temperature 96.98 [degF] Melchor Kensh [facility] 07-29-2021 10:01-0400 Diastolic blood pressure 70 mm[Hg] Melchor Kensh [facility] 07-29-2021 10:01-0400 Heart rate 91 /min Melchor Kensh [facility] 07-29-2021 10:01-0400 Respiratory rate 16 /min Melchor Kensh [facility] 07-29-2021 10:01-0400 Systolic blood pressure 120 mm[Hg] Melchor Kensh [facility] 07-15-2021 11:53-0400 Blood Pressure Location Laney Paula [facility] 07-15-2021 11:53-0400 Body temperature 97.34 [degF] Laney Paula [facility] 07-15-2021 11:53-0400 Diastolic blood pressure 74 mm[Hg] Laney Paula [facility] 07-15-2021 11:53-0400 Heart rate 102 /min Laney Paula [facility] 07-15-2021 11:53-0400 Respiratory rate 18 /min Laney Paula [facility] 07-15-2021 11:53-0400 Systolic blood pressure 111 mm[Hg] Laney Paula [facility] 07-05-2021 19:38-0400 Hourly Rounding Melchor Rivera [facility] 07-05-2021 19:38-0400 Promise to Return Melchor Rivera [facility] 07-05-2021 16:32-0400 Body temperature 98.6 [degF] Melchor Kensh [facility] 07-05-2021 16:32-0400 Diastolic blood pressure 62 mm[Hg] Melchor Kensh [facility] 07-05-2021 16:32-0400 Heart rate 71 /min Melchor Kensh [facility] 07-05-2021 16:32-0400 Mean blood pressure 80 mm[Hg] Melchor Kensh [facility] 07-05-2021 16:32-0400 Respiratory rate 18 /min Melchor Kensh [facility] 07-05-2021 16:32-0400 SaO2% (BldA) [Mass fraction] 92 % Melchor Kensh [facility] 07-05-2021 16:32-0400 Systolic blood pressure 115 mm[Hg] Melchor Kensh [facility] 07-05-2021 13:32-0400 Diastolic blood pressure 70 mm[Hg] Melchor Kensh [facility] 07-05-2021 13:32-0400 Systolic blood pressure 125 mm[Hg] Melchor Kensh [facility] 07-05-2021 11:09-0400 Body temperature 98.42 [degF] Melchor Kensh [facility] 07-05-2021 11:09-0400 Diastolic blood pressure 64 mm[Hg] Melchor Kensh [facility] 07-05-2021 11:09-0400 Heart rate 99 /min Melchor Kensh [facility] 07-05-2021 11:09-0400 Mean blood pressure 74 mm[Hg] Melchor Kensh [facility] 07-05-2021 11:09-0400 Respiratory rate 18 /min Melchor Kensh [facility] 07-05-2021 11:09-0400 SaO2% (BldA) [Mass fraction] 96 % Melchor Kensh [facility] 07-05-2021 11:09-0400 Systolic blood pressure 93 mm[Hg] Melchor Rivera [facility] 07-05-2021 11:09-0400 Blood Pressure Location Melchor Rivera [facility] 07-05-2021 11:09-0400 BP/Pulse Patient Position Melchor Rivera [facility] 07-05-2021 07:34-0400 Body temperature 97.88 [degF] Melchor Rivera [facility] 07-05-2021 07:34-0400 Heart rate 95 /min Melchor Rivera [facility] 07-05-2021 07:34-0400 Mean blood pressure 88 mm[Hg] Melchor Rivera [facility] 07-05-2021 07:34-0400 Respiratory rate 18 /min Melchor Rivera [facility] 07-05-2021 07:34-0400 SaO2% (BldA) [Mass fraction] 96 % Melchor Rivera [facility] 07-05-2021 00:34-0400 Blood Pressure Location Melchor Rivera [facility] 07-05-2021 00:34-0400 BP/Pulse Patient Position Melchor Rivera [facility] 07-05-2021 00:34-0400 Mean blood pressure 87 mm[Hg] Melchor Rivera [facility] 07-04-2021 16:00-0400 Blood Pressure Location Melchor Rivera [facility] 07-04-2021 16:00-0400 BP/Pulse Patient Position Melchor Rivera [facility] 07-04-2021 16:00-0400 Mean blood pressure 82 mm[Hg] Melchor Rivera [facility] 07-04-2021 00:00-0400 Mean blood pressure 83 mm[Hg] Melchor Kensh [facility] 06-30-2021 11:44-0400 Body temperature 97.52 [degF] Melchor Kensh [facility] 06-30-2021 07:42-0400 Body temperature 97.7 [degF] Melchor Kensh [facility] 06-30-2021 07:42-0400 Heart rate 54 /min Melchor Kensh [facility] 06-29-2021 23:00-0400 Body temperature 97.88 [degF] Melchor Kensh [facility] 06-20-2021 20:00-0400 Respiratory rate 20 /min Melchor Kensh [facility] 06-20-2021 18:00-0400 Respiratory rate 24 /min Melchor Kensh [facility] 06-20-2021 17:00-0400 Respiratory rate 34 /min Melchor Kensh [facility] 06-14-2021 11:58-0400 Body temperature 97.16 [degF] Melchor Kensh [facility] 06-14-2021 07:39-0400 Body temperature 99.14 [degF] Melchor Kensh [facility] 06-11-2021 19:30-0400 Heart rate 102 /min Melchor Kensh [facility] 06-11-2021 19:30-0400 Heart rate 107 /min Melchor Kensh [facility] 06-11-2021 15:46-0400 Heart rate 70 /min Melchor Kensh [facility] 05-27-2021 09:25-0400 Blood Pressure Location Melchor Rivera [facility] 05-27-2021 09:25-0400 Body temperature 98.24 [degF] Melchor Rivera [facility] 05-27-2021 09:25-0400 Diastolic blood pressure 66 mm[Hg] Melchor Rivera [facility] 05-27-2021 09:25-0400 Heart rate 75 /min Melchor Rivera [facility] 05-27-2021 09:25-0400 Systolic blood pressure 125 mm[Hg] Melchor Rivera [facility] Encounters Encounter Date Encounter Type Care Provider Facility Start: 07-31-2023 ambulatory ELSIE Zunigai ty:[facility] Start: 05-17-2023 End: 05-17-2023 ambulatory CARSON MATAMOROS Not Available Start: 05-02-2023 Chart abstracting Diann patel MD Work Phone: [facility] Start: 05-01-2023 End: 05-02-2023 ambulatory ELSIE CASTANON Facility:[facility] Start: 05-01-2023 End: 05-01-2023 Patient encounter procedure ELSIE CASTANON [facility] Start: 05-01-2023 End: 05-07-2023 Evaluation and management of inpatient CÉSAR DISHA [facility] Start: 04-25-2023 End: 04-29-2023 Evaluation and management of inpatient CARMEN KERN [facility] Start: 04-24-2023 End: 04-29-2023 Evaluation and management of inpatient Bolivar Abbie Blood DO Work Phone: [facility] Start: 04-23-2023 End: 04-23-2023 ambulatory EDILMA TRAVIS [facility] Start: 04-16-2023 End: 04-20-2023 Evaluation and management of inpatient [facility] Start: 04-13-2023 End: 04-20-2023 Evaluation and management of inpatient [facility] Start: 04-12-2023 End: 04-20-2023 Evaluation and management of inpatient [facility] Start: 04-12-2023 End: 04-17-2023 Evaluation and management of inpatient XAVIER SEGAL [facility] Start: 04-12-2023 End: 04-20-2023 Evaluation and management of inpatient [facility] Start: 04-10-2023 End: 04-20-2023 Evaluation and management of inpatient [facility] Start: 04-10-2023 End: 04-20-2023 Evaluation and management of inpatient ERNESTO SERRA [facility] Start: 04-10-2023 End: 04-10-2023 ambulatory DIAN [facility] Start: 04-08-2023 End: 04-20-2023 Evaluation and management of inpatient [facility] Start: 04-08-2023 End: 04-20-2023 Evaluation and management of inpatient Deneen De Jesus MD Work Phone: [facility] Start: 04-08-2023 End: 04-09-2023 Emergency department patient visit DIAN RANDALL [facility] Start: 04-07-2023 End: 04-09-2023 Emergency department patient visit DIAN RANDALL [facility] Start: 04-07-2023 End: 04-08-2023 Emergency department patient visit CARSON MATAMOROS [facility] Start: 03-21-2023 End: 03-22-2023 [facility] Start: 03-15-2023 End: 03-15-2023 ambulatory CARSON MATAMOROS Not Available Start: 02-16-2023 End: 02-17-2023 ambulatory Yasmani CAMARA Facility:[facility] Start: 02-10-2023 End: 02-14-2023 Evaluation and management of inpatient CARSON MATAMOROS [facility] Start: 01-18-2023 End: 01-19-2023 ambulatory LYNNETTE BRANCH [facility] Start: 01-10-2023 End: 01-11-2023 ambulatory LYNNETTE BRANCH [facility] Start: 11-08-2022 End: 11-11-2022 ambulatory Melchor Rivera Facility:[facility] Start: 11-08-2022 End: 11-11-2022 Observation Melchor France Rivera [facility] Start: 09-02-2022 Evaluation and management of inpatient LYLA ZEPEDA [facility] Start: 09-02-2022 End: 09-07-2022 Evaluation and management of inpatient Lyla Zepeda MD Work Phone: [facility] Comment on above: Small bowel obstruct ion (HCC) (Primary Dx) Start: 06-24-2022 End: 06-27-2022 Evaluation and management of inpatient Kari MehtaSophia Guanacojosefa Facility:[facility] Start: 06-23-2022 End: 06-27-2022 Evaluation and management of inpatient Kari Sales [facility] Start: 06-21-2022 Evaluation and management of inpatient JOSE RAY [facility] Start: 06-21-2022 End: 06-24-2022 Evaluation and management of inpatient Jose Ray MD Work Phone: [facility] Comment on above: SBO (small bowel obs truction) (HCC) (Primary Dx) Start: 06-12-2022 End: 06-15-2022 Evaluation and management of inpatient LUZ MARINA Ceron LADARIUS [facility] Start: 05-09-2022 End: 05-12-2022 Evaluation and management of inpatient NAZ CORONA [facility] Start: 05-08-2022 End: 05-12-2022 Evaluation and management of inpatient Aron Conn DO Work Phone: [email or web address] Comment on above: Small bowel obstruct ion (HCC) (Primary Dx); Acute kidney injury (HCC); History of seizure disorder Start: 05-05-2022 End: [facility]-06[facility]: 05-05-[facility]22 End: 05-05-2022 Subsequent hospital visit by physician Kevin Bryonfrank FRIAS Work Phone: [facility] Start: 03-22-2022 End: 03-22-2022 Subsequent hospital visit by physician Kevin Bryonfrank FRIAS Work Phone: [email or web address] Start: 02-08-2022 End: 02-08-2022 Subsequent hospital visit by physician Kevin Bryonfrank FRIAS Work Phone: [facility] Start: 11-09-2021 End: 11-09-2021 Subsequent hospital visit by physician Kevin Bryonfrank FRIAS Work Phone: [email or web address] Start: 10-19-2021 End: 10-19-2021 Subsequent hospital visit by physician Kevin Bryonfrank FRIAS Work Phone: [facility] Start: 10-04-2021 End: 10-05-[address] CARSON MATAMOROS Facility: Start: 09-10-2021 End: 09-10-2021 Emergency department patient visit Larry Warner DO [facility] ED Comment on above: Seizure (HCC) (Prima ry Dx) Start: 09-01-2021 End: 09-01-2021 Patient encounter procedure Melchor Rivera [facility] Start: 08-12-2021 End: 08-12-2021 Patient encounter procedure Melchor Rivera [facility] Start: 07-29-2021 End: 07-29-2021 Patient encounter procedure Melchor Rivera [facility] Start: 07-15-2021 End: 07-15-2021 Patient encounter procedure Laney Mitchell [facility] Start: 07-07-2021 End: 07-09-2021 Pre-admission assessment Laney Mitchell [facility] Start: 06-11-2021 End: 07-05-2021 Evaluation and management of inpatient Melchor Rivera [facility] Start: 06-11-2021 End: 06-11-[address] CARSON MATAMOROS Facility:[facility] Start: 05-27-2021 End: 05-27-2021 Patient encounter procedure Melchor Rivera [facility] Start: 03-30-2021 End: 03-30-2021 Subsequent hospital visit by physician Kevin Robles DO Work Phone: [facility] Start: 03-11-2021 End: 03-11-2021 Subsequent hospital visit by physician Kevin Robles DO Work Phone: [facility] Start: 02-28-2021 End: 03-01-[address] CARSON MATAMOROS Facility:[facility] Start: 08-18-2020 End: 08-18-2020 Subsequent hospital visit by physician Kevin Robles DO Work Phone: [facility] Start: 12-31-2019 End: 12-31-2019 Subsequent hospital visit by physician Kevin CAMP[facility] Start: 12-05-2018 End: 12-05-2018 Subsequent hospital visit by physician Kevin CAMPBE[facility] Start: 11-12-2018 Patient encounter status Edilma Eastman MD Work Phone: [facility] Start: 10-31-2018 End: 10-31-2018 Subsequent hospital visit by physician Kevin PORTILLOZ [facility] Start: 07-29-2018 Patient encounter procedure Edilma Eastman MD Work Phone: [facility] Start: 10-11-2016 End: 10-11-2016 Ambulatory PIEDAD HOOKER Facility:[facility] Start: 10-09-2016 Ambulatory PIEDAD HOOKER Facility: [facility] Start: 08-08-2016 End: 08-14-2016 Evaluation and management of inpatient LIZZ AGUILAR [facility] Procedures Date Procedure Procedure Detail Performing Clinician Start: 04-28-2023 BASIC METABOLIC PANE L W/ REFLEX TO MG FOR LOW K Toshia E Sunny DO Work Phone: Start: 04-28-2023 Blood count complete auto&auto difrntl wbc Toshia E Sunny DO Work Phone: Start: 04-27-2023 Blood count complete auto&auto difrntl wbc Carmen Kern DO Work Phone: Start: 04-27-2023 BASIC METABOLIC PANE L W/ REFLEX TO MG FOR LOW K Toshia E Sunny DO Work Phone: Start: 04-26-2023 Electroencephalogram w/rec awake&asleep Ladi Saab DO Work Phone: Start: 04-26-2023 Radiologic exam abdomen 1 view Toshia E Sunny DO Work Phone: Start: 04-26-2023 BASIC METABOLIC PANE L W/ REFLEX TO MG FOR LOW K Toshia E Sunny DO Work Phone: Start: 04-26-2023 Blood count complete auto&auto difrntl wbc Toshia E Sunny DO Work Phone: Start: 04-25-2023 End: 04-25-2023 Basic metabolic panel calcium total Toshia E Sunny DO Work Phone: Start: 04-25-2023 LACTATE, SEPSIS Carmen Kern DO Work Phone: Start: 04-25-2023 Radiologic exam ches t single view Simran Villa GENERAL STUDIES PROGRAM CHAIR - SAFETY PATROL OFFICER Work Phone: Start: 04-24-2023 Radiologic exam abdomen 1 view Gloria Faust GENERAL STUDIES PROGRAM CHAIR - ORTHOTIC ASSISTANT Work Phone: Start: 04-20-2023 Basic metabolic pane l calcium total Aivhamad Kerry La MD Work Phone: Start: 04-19-2023 End: 04-19-2023 Basic metabolic panel calcium total Muhamad Kerry La MD Work Phone: Start: 04-18-2023 Assay of magnesium Emperatriz Eastman MD Work Phone: Start: 04-18-2023 Basic metabolic pane l calcium total Avihamad Kerry La MD Work Phone: Start: 04-17-2023 End: 04-17-2023 Basic metabolic panel calcium total Avihamad Kerry La MD Work Phone: Start: 04-16-2023 Calcium ionized Avihamad Kerry La MD Work Phone: Start: 04-16-2023 Radiologic exam swal low function contrast study Gonzales La MD Work Phone: Start: 04-16-2023 Basic metabolic pane l calcium total Avihamad Kerry La MD Work Phone: Start: 04-16-2023 Drug assay lacosamide M uhamad Kerry La MD Work Phone: Start: 04-15-2023 Drug screen quantita tive levetiracetam Gonzales La MD Work Phone: Start: 04-15-2023 Assay of magnesium Aviha mad Kerry La MD Work Phone: Start: 04-15-2023 Basic metabolic pane l calcium total Rolandoad Kerry La MD Work Phone: Start: 04-14-2023 Assay of magnesium Aviha mad Kerry La MD Work Phone: Start: 04-14-2023 Basic metabolic pane l calcium total Gonzales La MD Work Phone: Start: 04-13-2023 Radiologic exam abdomen 1 view Gonzales La MD Work Phone: Start: 04-13-2023 Blood count platelet automated Gonzales La MD Work Phone: Start: 04-13-2023 Basic metabolic pane l calcium total Gonzales La MD Work Phone: Start: 04-12-2023 Assay of magnesium Aura Chappell MD Work Phone: Start: 04-12-2023 Radiologic exam ches t single view Gonzales La MD Work Phone: Start: 04-12-2023 Echo tthrc r-t 2d w/ wom-mode compl spec&colr d Xavier Lakesha Hugginser PA-C Work Phone: Start: 04-12-2023 Radiologic exam swal low function contrast study Gonzales La MD Work Phone: Start: 04-12-2023 Basic metabolic pane l calcium total Gonzales La MD Work Phone: Start: 04-11-2023 Assay of magnesium Aura Chappell MD Work Phone: Start: 04-11-2023 Ecg routine [...] Work Phone: Start: 04-09-2023 Assay of magnesium Sand hunter Perkins MD Work Phone: Start: 04-09-2023 Basic metabolic pane l calcium total Nazia Chappell MD Work Phone: Start: 04-09-2023 Adult depression scr eening assessment Diann Wolfe MD Work Phone: Start: 04-08-2023 PULSE OXIMETRY, SPOT Sh addis Chappell MD Work Phone: Start: 04-08-2023 Comprehensive metabolic panel Deneen De Jesus MD Work Phone: Start: 09-07-2022 COVID-19, RAPID Lyla Zepeda MD Work Phone: Start: 09-07-2022 Radiologic exam abdo men 2 views Dorota Salter-Karla GENERAL STUDIES PROGRAM CHAIR - ORTHOTIC ASSISTANT Work Phone: Start: 09-07-2022 Rhythm ecg 1-3 leads w/interpretation & report Unknown Provider Result Start: 09-07-2022 Blood count complete auto&auto difrntl wbc Lyla Zepeda MD Work Phone: Start: 09-06-2022 Radiologic exam abdomen 1 view Lyla Zepeda MD Work Phone: Start: 09-06-2022 End: 09-07-2022 Rhythm ecg 1-3 leads w/interpretation & report Unknown Provider Result Start: 09-06-2022 Blood count complete auto&auto difrntl wbc Lyla Zepeda MD Work Phone: Start: 09-05-2022 End: 09-06-2022 Rhythm ecg 1-3 leads w/interpretation & report Unknown Provider Result Start: 09-05-2022 Blood count complete auto&auto difrntl wbc Lyla Zepeda MD Work Phone: Start: 09-05-2022 Radiologic exam abdo men 2 views Dorota Staufferter GENERAL STUDIES PROGRAM CHAIR - ORTHOTIC ASSISTANT Work Phone: Start: 09-04-2022 Radiologic exam abdo men 2 views Dorota Woodson GENERAL STUDIES PROGRAM CHAIR - ORTHOTIC ASSISTANT Work Phone: Start: 09-04-2022 End: 09-05-2022 Rhythm ecg 1-3 leads w/interpretation & report Unknown Provider Result Start: 09-04-2022 Blood count complete auto&auto difrntl wbc Lyla Zepeda MD Work Phone: Start: 09-03-2022 Radiologic exam abdomen 1 view Lyla Zepeda MD Work Phone: Start: 09-03-2022 Radiologic exam abdomen 1 view Lyla Zepeda MD Work Phone: Start: 09-03-2022 Assay of magnesium Александр Zepeda MD Work Phone: Start: 09-03-2022 End: 09-04-2022 Rhythm ecg 1-3 leads w/interpretation & report Unknown Provider Result Start: 09-03-2022 Rhythm ecg 1-3 leads w/interpretation & report Unknown Provider Result Start: 09-02-2022 Radiologic exam abdomen 1 view Jose John MD Work Phone: Start: 09-02-2022 Ct abdomen & pelvis w/contrast material Luke Angeles PA-C Work Phone: Start: 09-02-2022 Comprehensive metabolic panel Luke Angeles PA-C Work Phone: Start: 06-23-2022 Radiologic exam abdomen 1 view Dorota Woodson GENERAL STUDIES PROGRAM CHAIR [employer] ORTHOTIC ASSISTANT Work Phone: Start: 06-23-2022 Radiologic exam abdomen 1 view Ilana I Nazemi DO Work Phone: Start: 06-23-2022 Blood count complete auto&auto difrntl wbc Jose Ray MD Work Phone: Start: 06-23-2022 Rhythm ecg 1-3 leads w/interpretation & report Unknown Provider Result Start: 06-22-2022 Radiologic exam smal l int single contrast study Ilana I Nazemi DO Work Phone: Start: 06-22-2022 Radiologic exam abdomen 1 view Ilana I Nazemi DO Work Phone: Start: 06-22-2022 Blood count complete auto&auto difrntl wbc Jose Ray MD Work Phone: Start: 06-22-2022 End: 06-23-2022 Rhythm ecg 1-3 leads w/interpretation & report Unknown Provider Result Start: 06-22-2022 Rhythm ecg 1-3 leads w/interpretation & report Unknown Provider Result Start: 06-21-2022 Intermittent pulse oximetry Jose Ray MD Work Phone: Start: 06-21-2022 Iadna-dna/rna gi pth gn multiplex probe tq 12-25 Luke Karthik PA-C Work Phone: Start: 06-21-2022 Radiologic exam abdomen 1 view Luke Karthik PA-C Work Phone: Start: 06-21-2022 Ct abdomen & pelvis w/contrast material Luke Karthik PA-C Work Phone: Start: 06-21-2022 End: 06-21-2022 Comprehensive metabolic panel aCrson Matamoros MD Work Phone: Start: 06-21-2022 IMMATURE PLATELET FRACTION Luke Karthik PA-C Work Phone: Start: 06-21-2022 SPECIMEN REJECTION Karine jara Karthik PA-C Work Phone: Start: 05-12-2022 COVID-19, RAPID Dorota Woodson GENERAL STUDIES PROGRAM CHAIR - ORTHOTIC ASSISTANT Work Phone: Start: 05-11-2022 Radiologic exam smal l int single contrast study Dorota Woodson GENERAL STUDIES PROGRAM CHAIR - ORTHOTIC ASSISTANT Work Phone: Start: 05-11-2022 Blood count complete auto&auto difrntl wbc Becca Patel MD Work Phone: Start: 05-10-2022 GLUCOSE, WHOLE BLOOD Di juan jose Patel MD Work Phone: Start: 05-10-2022 Radiologic exam comp lete acute abdomen series Tariq Pritchard GENERAL STUDIES PROGRAM CHAIR - ORTHOTIC ASSISTANT Work Phone: Start: 05-10-2022 Blood count complete auto&auto difrntl wbc Becca Patel MD Work Phone: Start: 05-09-2022 Radiologic exam abdomen 1 view Dorota SalterOlgaKarla GENERAL STUDIES PROGRAM CHAIR - ORTHOTIC ASSISTANT Work Phone: Start: 05-09-2022 Blood count complete auto&auto difrntl wbc Becca Patel MD Work Phone: Start: 05-09-2022 End: 05-09-2022 Radiologic exam abdomen 1 view Aron An steffany DO Work Phone: Start: 05-08-2022 Basic metabolic pane l calcium total Aron Andes DO Work Phone: Start: 05-08-2022 Hepatic function panel Aron Andes DO Work Phone: Start: 05-05-2022 Urinalysis microscopic only Lynnette Branch GENERAL STUDIES PROGRAM CHAIR Work Phone: Start: 05-05-2022 Urnls dip stick/tabl et rgnt auto w/o microscopy Lynnette Branch GENERAL STUDIES PROGRAM CHAIR Work Phone: Start: 03-22-2022 Blood count complete auto&auto difrntl wbc Carson Matamoros MD Work Phone: Start: 03-22-2022 VITAMIN B12 & FOLATE Ma Reji Matamoros MD Work Phone: Start: 02-08-2022 Basic metabolic pane l calcium total Shawnee Catarino DO Work Phone: Start: 02-08-2022 Hepatic function panel Shawnee Toribio DO Work Phone: Start: 09-10-2021 Basic metabolic pane l calcium total Larry Warner DO Start: 09-10-2021 Ct head/brain w/o co ntrast material Larry Malikrebecca DO Start: 09-10-2021 Ecg routine ecg w/le [...] metabolic pane l calcium total Shawnee Toribio Work Phone: Start: 12-31-2019 Blood count complete [...] drug no t elsewhere specified Kevin J Ilo Work Phone: Start: 10-21-2015 Hydrocelectomy Melchor Rivera Comment on above: LEFT Start: 03-05-1990 Structure of left sh oulder region (body structure) Melchor Rivera Colonoscopy Melchor Kensh Small intestine excision Efren lorenalakesha Rivera Vagal nerve stimulat or (physical object) Melchor Rivera Plan of Treatment Date Care Activity Detail Author Start: 04-13-2026 Lipid panel Lipids [facility] Start: 08-18-2025 Lipid panel Lipid screen [facility] Start: 04-20-2024 Adult BMI Screening Adult BMI Screen ing [facility] Start: 04-09-2024 Depression Screening Depression Scre ening [facility] Start: 04-09-2024 Tobacco Screening Tobacco Screening [facility] Start: 01-19-2024 Screening for malign ant neoplasm of colon [facility] Start: 08-15-2023 Lipid panel Lipid screen [facility] [place], [place] Start: 08-15-2023 Lipid screen Lipid screen [facility] [place], [place] Start: 07-10-2023 Pneumococcal 65+ yea rs Vaccine (#3) Pneumococcal 65+ years Vaccine (#3) [facility] Start: 07-10-2023 Pneumococcal 65+ yea rs Vaccine (2 - PPSV23 or PCV20) Pneumococcal 65+ years Vaccine (2 - PPSV23 or PCV20) [facility] Start: 07-10-2023 Pneumococcal 65+ yea rs Vaccine (3 - PPSV23 if available, else PCV20) Pneumococcal 65+ years Vaccine (3 - PPSV23 if available, else PCV20) [facility] Start: 07-10-2023 Pneumococcal 65+ yea rs Vaccine (3 - PPSV23 or PCV20) Pneumococcal 65+ years Vaccine (3 - PPSV23 or PCV20) [facility] Start: 05-09-2023 End: 05-09-2023 Patient encounter procedure 05/09/2023 1:15 PM EST Office Visit [facility] [address] [place] [address] Diann Wolfe MD [address] [place] [address] [facility] Start: 03-05-2023 Annual Wellness Visi t (Medicare Advantage) Annual Wellness Visit (Medicare Advantage) [facility] Start: 03-04-2023 DTaP,Tdap and Td Vaccines (4 - Td or Tdap) DTaP,Tdap and Td Vaccines (4 - Td or Tdap) [facility] Start: 03-04-2023 DTaP/Tdap/Td vaccine (2 - Td or Tdap) DTaP/Tdap/Td vaccine (2 - Td or Tdap) [facility] Start: 03-04-2023 DTaP/Tdap/Td vaccine (2 - Td) DTaP/Tdap/Td vaccine (2 - Td) [place] Start: 03-04-2023 DTaP/Tdap/Td vaccine (4 - Td or Tdap) DTaP/Tdap/Td vaccine (4 - Td or Tdap) [facility] Start: 11-03-2022 COVID-19 Vaccine (2022- season) COVID-19 Vaccine ( season) [facility] Start: 11-03-2022 Influenza vaccination Influenza Vacc ine [facility] Start: 10-03-2022 Influenza vaccination B [facility] Start: 04-13-2022 Prostate specific antigen measurement Prostate Specific Antigen (PSA) Screening or Monitoring [facility] Start: 11-03-2021 Influenza vaccination Flu vaccine (# 1) [facility] Start: 10-03-2021 Influenza vaccination Flu vaccine (# 1) [facility] Start: 07-14-2021 COVID-19 Vaccine (4 - Booster for Pfizer series) COVID-19 Vaccine (4 - Booster for Pfizer series) [facility] Start: 05-11-2021 COVID-19 Vaccine (4 - Booster for Pfizer series) COVID-19 Vaccine (4 - Booster for Pfizer series) [facility] Start: 01-14-2021 Fall Risk Screening Fall Risk Screen ing [facility] Start: 01-14-2021 Pneumococcal 65+ yea rs Vaccine (2 of 2 - PPSV23) Pneumococcal 65+ years Vaccine (2 of 2 - PPSV23) [facility] Start: 11-03-2020 Influenza vaccination [facility] Start: 11-04-2019 Influenza vaccination Flu vaccine (# 1) [place] Start: 07-10-2019 Medicare Annual Well ness Visit Medicare Annual Wellness Visit [facility] Start: 11-03-2018 Influenza vaccination Flu vaccine (# 1) [place] Start: 08-25-2018 Annual Wellness Visi t (AWV) Annual Wellness Visit (AWV) [facility] Start: 03-11-2016 Administration of varicella zoster vaccine Zoster (Shingles) Vaccine (2 of 3) [facility] Start: 03-11-2016 Shingles vaccine (2 of 3) Shingles vaccine (2 of 3) [facility] Start: 2016 Respiratory Syncytia l Virus (RSV) or age 60 yrs+ (1 - 1-dose 60+ series) Respiratory Syncytial Virus (RSV) or age 60 yrs+ (1 - 1-dose 60+ series) [facility] Start: 01-14-2006 Colon cancer screen colonoscopy Colon cancer screen colonoscopy [place] Start: 01-14-2006 Screening for malign ant neoplasm of colon Colon cancer screen colonoscopy [place] Start: 01-14-2006 Shingles Vaccine (1 of 2) Shingles Vaccine (1 of 2) [facility] Start: 01-14-2001 Screening for malign ant neoplasm of colon [facility] Start: 01-14-1991 Diabetes screen Diabetes screen [facility] Start: 01-14-1974 Adult BMI Follow Up Plan Adult BMI Follow Up Plan [facility] Start: 01-14-1974 Hepatitis C screening Hepatitis C sc reen [facility] Start: 01-14-1971 HIV screen HIV screen [place], [place] Start: 01-14-1971 HIV screening HIV screen [facility] Start: 1968 COVID-19 Vaccine (1) COVID-19 Vaccin e (1) [facility] Work Phone: Start: 1968 Depression Screen Depression Screen [facility] Start: 01-14-1961 COVID-19 Vaccine (1) COVID-19 Vaccin e (1) [employer] [facility] Start: 1955 Hepatitis B vaccine (2 of 3 - 3-dose series) Hepatitis B vaccine (2 of 3 - 3-dose series) [facility] [employer] Start: 1955 Annual Wellness Visi t (AWV) Annual Wellness Visit (AWV) [facility] Start: 1955 Hepatitis C screen Hepatitis C kelly jara [facility] Start: 1955 Hepatitis C screening Hepatitis C addis nichole [employer] End: 12-05-2018 Bacteria identified Cx Nom (U) Urine Culture Microbiology Routine Once for 1 Occurrences starting 12/05/2018 until 12/05/2018 [facility] Comment on above: Once for 1 Occurrenc es starting 12/05/2018 until 12/05/2018 Bacteria identified Cx Nom (U) Urine Culture Microbiology Routine 12/05/2018 6:15 AM EDT [facility] End: 06-26-2022 Basic Metabolic Panel w/ Reflex to MG Basic Metabolic Panel w/ Reflex to MG Lab Routine Daily for 3 Days starting 06/24/2022 until 06/26/2022 [facility] Work Phone: Comment on above: Daily for 3 Days sta rting 06/24/2022 until 06/26/2022 End: 06-30-2022 CBC W Auto Differential panel - Blood CBC auto differential Lab Routine Tomorrow AM for 9 Occurrences starting 06/22/2022 until 06/30/2022, 2 completed [facility] Work Phone: Comment on above: Tomorrow AM for 9 Oc currences starting 06/22/2022 until 06/30/2022, 2 completed End: 09-09-2022 CBC W Auto Differential panel - Blood CBC auto differential Lab Routine Daily for 7 Days starting 09/03/2022 until 09/09/2022, 5 completed [facility] Comment on above: Daily for 7 Days sta rting 09/03/2022 until 09/09/2022, 5 completed End: 09-09-2022 Comprehensive Metabolic Panel w/ Reflex to MG Comprehensive Metabolic Panel w/ Reflex to MG Lab Routine Daily for 7 Days starting 09/03/2022 until 09/09/2022, 5 completed [facility] Comment on above: Daily for 7 Days sta rting 09/03/2022 until 09/09/2022, 5 completed End: 04-24-2023 Culture, Blood 1 Culture, Blood 1 Microbiology STAT One Time for 1 Occurrences starting 04/24/2023 until 04/24/2023 [facility] Comment on above: One Time for 1 Occur rences starting 04/24/2023 until 04/24/2023 End: 05-05-2022 Culture, Urine [facility] Work Phone: Comment on above: Once for 1 Occurrenc es starting 05/05/2022 until 05/05/2022 EKG 12 Lead EKG 12 Lead ECG STAT 09/10/2021 9:45 PM EDT [facility] Intermittent pulse oximetry Pulse Oximetry Spot Check Respiratory Care Routine As Needed until discontinued starting 04/24/2023 [facility] Comment on above: As Needed until disc ontinued starting 04/24/2023 End: 10-31-2018 Lacosamide Level Lacosamide Level Lab Routine Once for 1 Occurrences starting 10/31/2018 until 10/31/2018 [place] Comment on above: Once for 1 Occurrenc es starting 10/31/2018 until 10/31/2018 [facility] [place] End: 12-31-2019 Lacosamide Level Lacosamide Level Lab Routine Once for 1 Occurrences starting 12/31/2019 until 12/31/2019 [facility] [place] Comment on above: Once for 1 Occurrenc es starting 12/31/2019 until 12/31/2019 End: 11-09-2021 Lacosamide Level [facility] Work Phone: Comment on above: Once for 1 Occurrenc es starting 11/09/2021 until 11/09/2021 Oxygen therapy [Mini mum Data Set] Initiate Oxygen Therapy Protocol Respiratory Care Routine As Needed until discontinued starting 05/09/2022 [employer] Phone: Comment on above: As Needed until disc ontinued starting 05/09/2022 Oxygen therapy [Mini mum Data Set] Initiate Oxygen Therapy Protocol Respiratory Care Routine As Needed until discontinued starting 06/21/2022 [employer] Phone: Comment on above: As Needed until disc ontinued starting 06/21/2022 Oxygen therapy [Mini mum Data Set] Initiate Oxygen Therapy Protocol Respiratory Care Routine Daily until discontinued starting 09/02/2022 [facility] Comment on above: Daily until disconti nued starting 09/02/2022 Oxygen therapy [Mini mum Data Set] Initiate Oxygen Therapy Protocol Respiratory Care Routine As Needed until discontinued starting 04/24/2023 [facility] Work Phone: Comment on above: As Needed until disc ontinued starting 04/24/2023 End: 10-31-2018 Primidone level Primidone level Lab Routine Once for 1 Occurrences starting 10/31/2018 until 10/31/2018 [employer] [place] Comment on above: Once for 1 Occurrenc es starting 10/31/2018 until 10/31/2018 Primidone level Primidone level Lab Routine 10/31/2018 12:05 PM EDT [facility] [place] End: 04-27-2023 SPECIMEN REJECTION [facility] Comment on above: Once for 1 Occurrenc es starting 04/27/2023 until 04/27/2023 End: 09-10-2022 XR ABDOMEN (2 VIEWS) XR ABDOMEN (2 VIEWS) Imaging Routine Daily for 7 Occurrences starting 09/04/2022 until 09/10/2022, 3 completed [facility] Comment on above: Daily for 7 Occurren juany starting 09/04/2022 until 09/10/2022, 3 completed Immunizations Immunization Date Immunization Notes Care Provider [facility] 07-13-2021 tuberculin skin test ; unspecified formulation Edilma Eastman MD Work Phone: [facility] 07-07-2021 tuberculin skin test ; unspecified formulation Edilma Eastman MD Work Phone: [facility] 03-16-2021 Edilma palomares MD Work Phone: [facility] 01-03-2021 Edilma palomares MD Work Phone: [facility] 01-03-2021 influenza virus vacc ine, unspecified formulation Diann Wolfe MD Work Phone: [facility] 04-06-2020 Edilma palomares MD Work Phone: [facility] 03-10-2020 Edilma palomares MD Work Phone: [facility] 07-09-2018 pneumococcal polysaccharide vaccine, 23 valent Edilma Eastman MD Work Phone: [facility] 12-20-2017 influenza, injectabl e, quadrivalent, preservative free Edilma Eastman MD Work Phone: [facility] 02-14-2017 influenza virus vacc ine, unspecified formulation Edilma Eastman MD Work Phone: [facility] 02-14-2017 influenza, injectabl e, quadrivalent, preservative free Edilma Eastman MD Work Phone: [facility] 02-14-2017 pneumococcal conjuga te vaccine, 13 valent Edilma Eastman MD Work Phone: [facility] 2016 zoster vaccine, live Edilma Eastman MD Work Phone: [facility] 2016 zoster vaccine, unspecified formulation Diann Wolfe MD Work Phone: [facility] 12-24-2014 influenza virus vacc ine, unspecified formulation Edilma Eastman MD Work Phone: [facility] 12-24-2014 influenza, injectabl e, quadrivalent, preservative free Edilma Eastman MD Work Phone: [facility] 01-14-2014 influenza virus vacc ine, unspecified formulation Edilma Eastman MD Work Phone: [facility] 01-14-2014 influenza, seasonal, injectable Edilma Eastman MD Work Phone: [facility] 03-04-2013 tetanus toxoid, redu breanne diphtheria toxoid, and acellular pertussis vaccine, adsorbed [facility] 01-14-2010 pneumococcal conjuga te vaccine, 13 valent Edilma Eastman MD Work Phone: [employer] 01-14-1975 diphtheria and tetan us toxoids, adsorbed for pediatric use Edilma Eastman MD Work Phone: [employer] 01-14-1975 tetanus toxoid, redu breanne diphtheria toxoid, and acellular pertussis vaccine, adsorbed Edilma Eastman MD Work Phone: [employer] 1955 hepatitis B vaccine, adult dosage Edilma Eastman MD Work Phone: [employer] Payers Date Payer Category Payer Medicare [facility] MEDICARE [facility] DUAL COMPLETE xxxxxxxxx 2018-Present xxxxxxxxx [id number] 2018 Medicare [id number] 2017 Medicare [id number] .[id number] 2017 Medicaid [id number] 2014 Medicaid MEDICAID [facility] DEPT OF JOB xxxxxxxxxxxx 2014-Present [phone] [address] [place] [address] xxxxxxxxxxxx [id number] 1959 Medicaid [id number] .[id number] 1956 Unknown [id number] 2.16.840.1.562624.3.579.2.5 93 1956 Unknown [id number] 2.16.840.1.765180.3.579.2.5 93 1956 Unknown [id number] 2.16.840.1.535280.3.579.2.5 93 1956 Unknown [id number] 2.16.840.1.268945.3.579.2.5 93 1956 Unknown [id number] 2.16.840.1.851021.3.579.2.1 75 1956 Unknown [id number] 2.16.840.1.502192.3.579.2.1 73 1956 Unknown [id number] 2.16.840.1.892596.3.579.2.1 73 1956 Unknown [id number] 2.16.840.1.858634.3.579.2.1 73 1956 Unknown [id number] 2.16.840.1.188376.3.579.2.1 73 1956 Unknown [id number] 2.16.840.1.577176.3.579.2.1 73 1956 Unknown [id number] 2.16.840.1.211619.3.579.2.1 73 1956 Unknown [id number] 2.16.840.1.326347.3.579.2.1 73 1956 Unknown [id number] 2.16.840.1.219130.3.579.2.1 73 1956 Unknown [id number] 2.16.840.1.138175.3.579.2.1 286 1956 Unknown [id number] 2.16.840.1.176868.3.579.2.1 286 1956 Unknown [id number] 2.16.840.1.514833.3.579.2.1 286 1956 Unknown [id number] 2.16.840.1.186809.3.579.2.1 286 1956 Unknown [id number] 2.16.840.1.353614.3.579.2.1 286 1956 Unknown [id number] 2.16.840.1.136529.3.579.2.1 286 1956 Unknown [id number] 2.16.840.1.777970.3.579.2.1 286 1956 Unknown [id number] 2.16.840.1.989249.3.579.2.1 286 1956 Unknown [id number] 2.16.840.1.740876.3.579.2.1 286 1956 Unknown [id number] 2.16.840.1.499481.3.579.2.1 286 1956 Unknown [id number] 2.16.840.1.233545.3.579.2.1 286 1956 Unknown [id number] 2.16.840.1.348644.3.579.2.1 286 1956 Unknown [id number] 2.16.840.1.439134.3.579.2.1 286 1956 Unknown [id number] 2.16.840.1.801421.3.579.2.1 286 1956 Unknown [id number] 2.16.840.1.544439.3.579.2.1 77 1956 Unknown [id number] 2.16.840.1.742828.3.579.2.1 77 1956 Unknown [id number] 2.16.840.1.351837.3.579.2.7 27 1956 Unknown [id number] 2.16.840.1.066784.3.579.2.7 27 1956 Unknown [id number] 2.16.840.1.911571.3.579.2.7 27 1956 Unknown [id number] 2.16.840.1.772351.3.579.2.7 27 1956 Unknown [id number] 2.16.840.1.482630.3.579.2.7 27 1956 Unknown [id number] 2.16.840.1.348470.3.579.2.1 259 1956 Unknown [id number] 2.16.840.1.273865.3.579.2.1 259 Medicare [id number] Social History Date Type Detail Facility Start: 12-14-2015 End: 02-14-2017 Tobacco smoking status NHIS Never smoker [facility] Start: 12-14-2015 End: 03-16-2020 Alcohol intake No [place], [place] Start: 1955 Sex Assigned At Not on file [place] Start: 12-14-2015 End: 04-09-2023 Alcohol intake Current non-drinker of alcohol (finding) [place], [place] Tobacco smoking status Never [facility] Start: 08-31-2021 End: 09-10-2021 Exposure to SARS-CoV-2 (event) Unable to assess [facility] Start: 04-28-2022 End: 06-21-2022 Exposure to SARS-CoV-2 (event) Not sure [facility] Start: 09-03-2022 History SDOH Alcohol Frequency 1 [facility] Start: 09-03-2022 History SDOH Alcohol Std Drinks 0 [facility] Start: 02-14-2017 Tobacco use and exposure Smokeless tobacco non-user [facility] Start: 03-16-2020 End: 04-17-2023 History of Social function [facility] How often to you hav e a drink containing alcohol? Never [facility] Has the [employer], [employer], oil, or water company threatened to shut off services in your home in past 12Mo No [facility] (I/We) worried diana er (my/our) food would run out before (I/we) got money to buy more. Never true [facility] Medical Equipment Procedure Code Equipment Code Equipment Origin al Text Equipment Identifier Dates FDA Start: 06-14-2021 FDA Start: 06-14-2021 FDA Start: 06-14-2021 FDA Start: 06-14-2021 FDA Start: 06-14-2021 LAPAROTOMY Kari Hunt MD 06/14/21 Unknown Abdomen FDA Start: 06-14-2021 LAPAROTOMY Kari Hunt MD 06/14/21 Unknown Abdomen FDA Start: 06-14-2021 LAPAROTOMY Kari Hunt MD 06/14/21 Unknown Abdomen FDA Start: 06-14-2021 [id number] Start: 03-23-2020 LAPAROTOMY DANAE Sales MD, Kari Mccollum 06/14/21 Unknown Abdomen FDA Start: 06-14-2021 Goals Date Patient Goal Desired Activity /State Personal health goal Comment on above: Formatting of this n ote might be different from the original. Evaluation of progress towards goal: Patient sister stated back to long term. Functional Status Date Assessment Result Facility 11-08-2022 Functional Status No [facility] 11-08-2022 Functional Status [facility] 06-24-2022 Functional Status N/A [facility] 09-01-2021 Functional Status N/A [facility] Clinical Notes 10-19-2013 to 04-29-2023 Ray Johnson, MILLER - 04/29/2023 3:35 PM Ray Tyson RN - 04/29/2023 2:10 PM Carmen Peterson DO - 04/29/2023 8:45 AM Sandrine Macias RN - 04/29/2023 4:50 AM Darius Barnes - [facility] Note Date & Type Note Facility 04-29-2023 History of Present illness Narrative Patient picked up by transport. Personal belongings packed and sent with transport. IV and telemetry removed. Pt denies pain on discharge. Patient to be picked up by [facility] at 3 PM. Report given to Berna and all questions answered. Call also made to Pat, pt's legal guardian, to update on picker operator time. Images from the original note were not included. [facility] Office: [phone] Braydon Isbell DO, Eliazar Zuñiga DO, Carmen Kern DO, Bolivar Valdovinos DO, Evelyn Mitchell MD, Rita Pope MD, aTmmy Cox MD, Hannah Mata MD, Dimas Fuentes MD, Vasyl Stanley MD, Reva Galindo MD, Mark Coleman DO, Rochelle Almanza MD, Aron Serna MD, Irwin Isbell DO, Livia Andino MD, Aman Hester DO, Kiarra Plasencia MD, Abby Pino MD, Kerrie Mccoy MD, Kennedi Spicer MD, Houston Frye MD, Elder Scott MD, Christofer Spencer MD, Erinn Nunez MD, Raeann Rodriguez MD, Kelly Owusu MD, Yana Munoz DO, Paresh Baker DO, Shwetha Qureshi MD, Domenico Rae MD, Dorota Escobar CNP, Leonie Murillo CNP, Beau Mccoy CNP, Melany Cormier DNP, Simran Villa CNP, Maureen Williamson CNP, Gloria Faust CNP, Toshia Cho CNP, Hattie Taylor CNP, SURAJ RíosC, SURAJ MartinezC, Zaria Flores ORTHOTIC ASSISTANT, Shani Patrick ORTHOTIC ASSISTANT, Reva Vaughan CNP, Corinne Stanton, JOSE ROBERTO, Manda Feldman, OTONIEL, Carleen Agarwal CNP, Sobeida Thornton, ORTHOTIC ASSISTANT [facility] IN-PATIENT SERVICE [facility] Progress Note 04/29/2023 8:46 AM Name: Amol Taylor Acct: [id number] Room: 1018/1018-02 Day: 5 Admit Date: 04/24/2023 10:56 PM PCP: Carson Matamoros MD Code Status: Full Code Subjective: C/C: Small bowel obstruction Interval History Status: Improved. Patient is tolerating diet and has no acute complaints. Denies abdominal pain, nausea or vomiting, fevers or chills or other acute issues. Nursing staff reports episode of nausea overnight which improved with Zofran Brief History: This is a 68-year-old male with history of MRDD and prior bowel obstructions that presents as a transfer from [facility] with recurrent bowel obstruction. Apparently at the long term and noted decreasing abdominal distention and complaints of pain and was sent to the emergency room. He had NG tube placed and was transferred to our facility for further management. He had a recent hospital stay at [facility] apparently family refused for him to go back to their facility. Review of Systems: Constitutional: negative for chills, fevers, sweats Respiratory: negative for cough, dyspnea on exertion, shortness of breath, wheezing Cardiovascular: negative for chest pain, chest pressure/discomfort, lower extremity edema, palpitations Gastrointestinal: negative for abdominal pain, constipation, diarrhea, nausea, vomiting Neurological: negative for dizziness, headache Medications: Allergies: Allergies Allergen Reactions Penicillins Hives, Shortness Of Breath and Swelling Sodium Hypochlorite Hives and Itching Clindamycin Rash Current Meds: Scheduled Meds: calcium carbonate 1 tablet Oral BID finasteride 5 mg Oral Nightly lacosamide 150 mg Oral BID lamoTRIgine 400 mg Oral QAM lamoTRIgine 600 mg Oral Nightly magnesium oxide 400 mg Oral Daily meclizine 25 mg Oral Daily oxyBUTYnin 10 mg Oral Daily pantoprazole 40 mg Oral QAM AC polyethylene glycol 17 g Oral Daily primidone 375 mg Oral Nightly primidone 250 mg Oral QAM tamsulosin 0.4 mg Oral BID linaCLOtide 145 mcg Oral QAM AC levETIRAcetam 1,500 mg IntraVENous Daily levETIRAcetam 2,000 mg IntraVENous Nightly sodium chloride flush 5-40 mL IntraVENous 2 times per day enoxaparin 40 mg SubCUTAneous Daily Continuous Infusions: sodium chloride 5 mL/hr at 04/27/23 0825 PRN Meds: hydrOXYzine HCl, LORazepam, melatonin, ondansetron, LORazepam, sodium chloride flush, sodium chloride, potassium chloride OR potassium alternative oral replacement OR potassium chloride, magnesium sulfate, [DISCONTINUED] ondansetron OR ondansetron, acetaminophen OR acetaminophen, prochlorperazine Data: Past Medical History: has a past medical history of Arthritis, BPH (benign prostatic hyperplasia), Dysphagia, GERD (gastroesophageal reflux disease), Hearing loss, HLD (hyperlipidemia), Insomnia, MR (mental retardation), Periorbital cellulitis, SBO (small bowel obstruction) (HCC), Seizures (HCC), Ventral hernia, and Vitamin D deficiency. Social History: reports that he has never smoked. He does not have any smokeless tobacco history on file. He reports that he does not drink alcohol and does not use drugs. Family History: Family History Problem Relation Age of Onset High Blood Pressure Mother Thyroid Cancer Mother Other Mother Myeloma Heart Disease Mother 2 Stents Arthritis Mother 2 Back surgeries Lung Cancer Father Heart Disease Brother Defibrilator Heart Attack Maternal Grandfather Diabetes Paternal Grandmother Vitals: BP 109/75 Pulse 86 Temp 97.9 F (36.6 C) (Oral) Resp 16 Ht 1.778 m (5' 10 ) Wt 73.3 kg (161 lb 9.6 oz) SpO2 97% BMI 23.19 kg/m Temp (24hrs), Av.2 F (36.8 C), Min:97.9 F (36.6 C), Max:98.6 F (37 C) No results for input(s): POCGLU in the last 72 hours. I/O (24Hr): Intake/Output Summary (Last 24 hours) at 04/29/2023 0846 Last data filed at 04/28/2023 1838 Gross per 24 hour Intake 600 ml Output -- Net 600 ml Labs: Hematology: Recent Labs 04/27/23 0607 04/28/23 0500 WBC 7.9 6.2 RBC 3.35* 3.24* HGB 11.0* 10.7* HCT 34.4* 32.2* MCV 102.7 99.4 MCH 32.8 33.0 MCHC 32.0 33.2 RDW 12.8 12.9 PLT 242 283 MPV 8.8 9.0 Chemistry: Recent Labs 04/27/23 0517 04/28/23 0500 NA 148* 147* K 3.9 3.9 CL 106 110* CO2 24 27 GLUCOSE 69* 95 BUN 21 22 CREATININE 0.7 0.7 ANIONGAP 18* 10 LABGLOM >60 >60 CALCIUM 9.2 9.2 No results for input(s): PROT , LABALBU , LABA1C , S3YDCHP , U5ZKKYE , FT4 , TSH , AST , ALT , LDH , GGT , ALKPHOS , LABGGT , BILITOT , BILIDIR , AMMONIA , AMYLASE , LIPASE , LACTATE , CHOL , HDL , LDLCHOLESTEROL , CHOLHDLRATIO , TRIG , VLDL , XLI88VC , PHENYTOIN , PHENYF , URICACID , POCGLU in the last 72 hours. ABG:No results found for: POCPH , PHART , PH , POCPCO2 , BZM3TVI , PCO2 , POCPO2 , PO2ART , PO2 , POCHCO3 , RMM1BEH , HCO3 , NBEA , PBEA , BEART , BE , THGBART , THB , JOV1DNR , QSVM7BIF , J5FQDMKL , O2SAT , FIO2 Lab Results Component Value Date/Time SPECIAL NOT REPORTED 12/05/2018 06:15 AM Lab Results Component Value Date/Time CULTURE NO GROWTH 5 DAYS 02/11/2023 10:25 PM Radiology: XR ABDOMEN (KUB) (SINGLE AP VIEW) Result Date: 04/26/2023 Nonobstructive bowel gas pattern. Enteric tube remains in place. XR CHEST PORTABLE Result Date: 04/25/2023 Enteric tube in satisfactory position. No acute process in the lungs. XR ABDOMEN FOR NG/OG/NE TUBE PLACEMENT Result Date: 04/25/2023 1. NG tube extends into the upper stomach. 2. Moderate amount of gas and stool scattered in the proximal and mid colon. Moderate amount of gas can be identified in some loops of small bowel mainly in the left side of abdomen. Physical Examination: General appearance: alert, cooperative and no distress Mental Status: oriented to person, place and time and normal affect Lungs: clear to auscultation bilaterally, normal effort Heart: regular rate and rhythm, no murmur Abdomen: soft, nontender, nondistended, normal bowel sounds, no masses, hepatomegaly, splenomegaly Extremities: no edema, redness, tenderness in the calves Skin: no gross lesions, rashes, induration Assessment: Hospital Problems Last Modified POA * (Principal) Small bowel obstruction (HCC) 04/25/2023 Yes Seizures (HCC) Chronic (Chronic) 04/25/2023 Yes MR (mental retardation), severe (Chronic) 04/25/2023 Yes Overview Signed 08/12/2018 8:51 AM by Ambulatory, Admin Replacing deprecated diagnoses Epilepsy (HCC) 04/25/2023 Yes AFTAB (obstructive sleep apnea) 04/25/2023 Yes Seizure-like activity (HCC) 04/26/2023 Yes Plan: Diet as tolerated Continue trial of Linzess Continue home maintenance medications Activity as tolerated, PT and OT as needed GI DVT prophylaxis Discharge today Carmen Kern DO 04/29/2023 8:46 AM Pt remained overall calm and cooperative throughout shift, until around 2am. Pt was not acting like himself. Prior to this, pt was responding in sentences, took his pills whole in thickened apple juice, was able to state how he felt, etc. Golf Course Designer noticed pt was tachy at this time on telemetry, so walked into room to see pt putting fingers into his mouth and not responding the same. Pt looked distressed, but was unable to express how he felt. Golf Course Designer administered IV PRN Zofran at 0230. Once Zofran was in system, pt stopped putting fingers in his mouth and HR decreased and went back into sinus rhythm (was sinus tachy). Brief changed as needed. See chart for output. No seizure activity noted. Pt remained on RA. Will continue with care plan Images from the original note were not included. [facility] Office: [phone] Braydon Isbell DO, Eliazar Zuñiga DO, Carmen Kern DO, Bolivar Valdovinos DO, Evelyn Mitchell MD, Rita Pope MD, Tammy Cox MD, Hannah Mata MD, Dimas Fuentes MD, Vasyl Stanley MD, Reva Galindo MD, Mark Coleman DO, Rochelle Almanza MD, Aron Serna MD, Irwin Isbell DO, Livia Andino MD, Aman Hester DO, Kiarra Plasencia MD, Abby Pino MD, Kerrie Mccoy MD, Kennedi Spicer MD, Houston Frye MD, Elder Scott MD, Christofer Spencer MD, Erinn Nunez MD, Raeann Rodriguez MD, Kelly Owusu MD, Yana Munoz DO, Paresh Baker DO, Shwetha Qureshi MD, Domenico Rae MD, Dorota Escobar, ORTHOTIC ASSISTANT, Leonie Murillo, ORTHOTIC ASSISTANT, Beau Mccoy, ORTHOTIC ASSISTANT, Melany Cormier, [facility], Simran Villa, ORTHOTIC ASSISTANT, Maureen Williamson, ORTHOTIC ASSISTANT, Gloria Faust, ORTHOTIC ASSISTANT, Toshia Cho, ORTHOTIC ASSISTANT, Hattie Taylor, ORTHOTIC ASSISTANT, Ellen Loja, PA-C, Karey Carrillo, PA-C, Zaria Flores, ORTHOTIC ASSISTANT, Shani Patrick, ORTHOTIC ASSISTANT, Reva Vaughan, ORTHOTIC ASSISTANT, Corinne Stanton, CLINICAL THERAPIST, Manda Feldman, ORTHOTIC ASSISTANT, Carleen Agarwal, ORTHOTIC ASSISTANT, Sobeida Thornton, ORTHOTIC ASSISTANT [facility] IN-PATIENT SERVICE [facility] Progress Note 04/28/2023 9:56 AM Name: Amol Taylor Acct: [id number] Room: [facility]1018-02 Day: 4 Admit Date: 04/24/2023 10:56 PM PCP: Carson Matamoros MD Code Status: Full Code Subjective: C/C: Small bowel obstruction Interval History Status: not changed. Patient is resting in bed, NG tube has been removed. Diet is being advanced per surgery. Denies any complaints of abdominal pain, nausea or vomiting, fevers or chills or acute complaints. Brief History: This is a six 8-year-old male with history of MRDD and prior bowel obstructions that presents as a transfer from [facility] with recurrent bowel obstruction. Apparently at the long term and noted decreasing abdominal distention and complaints of pain and was sent to the emergency room. He had NG tube placed and was transferred to our facility for further management. He had a recent hospital stay at [facility] apparently family refused for him to go back to their facility. Review of Systems: Constitutional: negative for chills, fevers, sweats Respiratory: negative for cough, dyspnea on exertion, shortness of breath, wheezing Cardiovascular: negative for chest pain, chest pressure/discomfort, lower extremity edema, palpitations Gastrointestinal: negative for abdominal pain, constipation, diarrhea, nausea, vomiting Neurological: negative for dizziness, headache Medications: Allergies: Allergies Allergen Reactions Penicillins Hives, Shortness Of Breath and Swelling Sodium Hypochlorite Hives and Itching Clindamycin Rash Current Meds: Scheduled Meds: lacosamide (VIMPAT) 150 mg in sodium chloride 0.9 % 65 mL IVPB 150 mg IntraVENous BID levETIRAcetam 1,500 mg IntraVENous Daily levETIRAcetam 2,000 mg IntraVENous Nightly sodium chloride flush 5-40 mL IntraVENous 2 times per day enoxaparin 40 mg SubCUTAneous Daily Continuous Infusions: sodium chloride 5 mL/hr at 04/27/23 0825 PRN Meds: LORazepam, sodium chloride flush, sodium chloride, potassium chloride OR potassium alternative oral replacement OR potassium chloride, magnesium sulfate, ondansetron OR ondansetron, acetaminophen OR acetaminophen, prochlorperazine Data: Past Medical History: has a past medical history of Arthritis, BPH (benign prostatic hyperplasia), Dysphagia, GERD (gastroesophageal reflux disease), Hearing loss, HLD (hyperlipidemia), Insomnia, MR (mental retardation), Periorbital cellulitis, SBO (small bowel obstruction) ([facility]), Seizures ([facility]), Ventral hernia, and Vitamin D deficiency. Social History: reports that he has never smoked. He does not have any smokeless tobacco history on file. He reports that he does not drink alcohol and does not use drugs. Family History: Family History Problem Relation Age of Onset High Blood Pressure Mother Thyroid Cancer Mother Other Mother Myeloma Heart Disease Mother 2 Stents Arthritis Mother 2 Back surgeries Lung Cancer Father Heart Disease Brother Defibrilator Heart Attack Maternal Grandfather Diabetes Paternal Grandmother Vitals: BP 108/66 Pulse 66 Temp 97.9 F (36.6 C) (Axillary) Resp 20 Ht 1.778 m (5' 10 ) Wt 72.3 kg (159 lb 6.3 oz) SpO2 95% BMI 22.87 kg/m Temp (24hrs), Av.9 F (36.6 C), Min:97.7 F (36.5 C), Max:98.1 F (36.7 C) No results for input(s): POCGLU in the last 72 hours. I/O (24Hr): No intake or output data in the 24 hours ending 04/28/23 0956 Labs: Hematology: Recent Labs 04/26/23 0518 04/27/23 0607 04/28/23 0500 WBC 8.1 7.9 6.2 RBC 3.29* 3.35* 3.24* HGB 10.9* 11.0* 10.7* HCT 33.5* 34.4* 32.2* MCV 101.8 102.7 99.4 MCH 33.1 32.8 33.0 MCHC 32.5 32.0 33.2 RDW 13.1 12.8 12.9 PLT 267 242 283 MPV 8.8 8.8 9.0 Chemistry: Recent Labs 04/26/23 0518 04/27/23 0517 04/28/23 0500 NA 147* 148* 147* K 3.6* 3.9 3.9 CL 106 106 110* CO2 28 24 27 GLUCOSE 83 69* 95 BUN 23 21 22 CREATININE 0.8 0.7 0.7 ANIONGAP 13 18* 10 LABGLOM >60 >60 >60 CALCIUM 9.6 9.2 9.2 No results for input(s): PROT , LABALBU , LABA1C , V4HVISE , F7TKYLZ , FT4 , TSH , AST , ALT , LDH , GGT , ALKPHOS , LABGGT , BILITOT , BILIDIR , AMMONIA , AMYLASE , LIPASE , LACTATE , CHOL , HDL , LDLCHOLESTEROL , CHOLHDLRATIO , TRIG , VLDL , [id number] , PHENYTOIN , PHENYF , URICACID , POCGLU in the last 72 hours. ABG:No results found for: POCPH , PHART , PH , POCPCO2 , PNH2RGW , PCO2 , POCPO2 , PO2ART , PO2 , POCHCO3 , LBO3MAA , HCO3 , NBEA , PBEA , BEART , BE , THGBART , THB , EFN3NFR , VVVT8FTN , T2AQBGLX , O2SAT , FIO2 Lab Results Component Value Date/Time SPECIAL NOT REPORTED 12/05/2018 06:15 AM Lab Results Component Value Date/Time CULTURE NO GROWTH 5 DAYS 02/11/2023 10:25 PM Radiology: XR ABDOMEN (KUB) (SINGLE AP VIEW) Result Date: 04/26/2023 Nonobstructive bowel gas pattern. Enteric tube remains in place. XR CHEST PORTABLE Result Date: 04/25/2023 Enteric tube in satisfactory position. No acute process in the lungs. XR ABDOMEN FOR NG/OG/NE TUBE PLACEMENT Result Date: 04/25/2023 1. NG tube extends into the upper stomach. 2. Moderate amount of gas and stool scattered in the proximal and mid colon. Moderate amount of gas can be identified in some loops of small bowel mainly in the left side of abdomen. Physical Examination: General appearance: alert, cooperative and no distress Mental Status: oriented to person, place and time and normal affect Lungs: clear to auscultation bilaterally, normal effort Heart: regular rate and rhythm, no murmur Abdomen: soft, nontender, nondistended, normal bowel sounds, no masses, hepatomegaly, splenomegaly Extremities: no edema, redness, tenderness in the calves Skin: no gross lesions, rashes, induration Assessment: Hospital Problems Last Modified POA * (Principal) Small bowel obstruction (HCC) 04/25/2023 Yes Seizures (HCC) Chronic (Chronic) 04/25/2023 Yes MR (mental retardation), severe (Chronic) 04/25/2023 Yes Overview Signed 08/12/2018 8:51 AM by Ambulatory, Admin Replacing deprecated diagnoses Epilepsy (HCC) 04/25/2023 Yes AFTAB (obstructive sleep apnea) 04/25/2023 Yes Seizure-like activity (HCC) 04/26/2023 Yes Plan: Advance diet as tolerated Stop IV fluids GI and DVT prophylaxis Continue home CPAP Resume home seizure medications Discharge today if tolerating dietary advancement Carmen Kern DO 04/28/2023 9:56 AM Images from the original note were not included. General Surgery Progress Note PATIENT NAME: Amol Taylor TODAY'S DATE: 04/28/2023, 7:43 AM SUBJECTIVE: Patient seen and examined at bedside. No acute events overnight. VSS, afebrile. Patient states he is feeling well this morning. Denies any abdominal pain. NG tube removed yesterday, patient tolerating clears without nausea or vomiting. Pt is passing gas, no bowel movement overnight. No other complaints at this time. OBJECTIVE: VITALS: BP 121/68 Pulse 72 Temp 97.7 F (36.5 C) Resp 17 Ht 1.778 m (5' 10 ) Wt 72.3 kg (159 lb 6.3 oz) SpO2 97% BMI 22.87 kg/m INTAKE/OUTPUT: No intake or output data in the 24 hours ending 04/28/23 0743 PHYSICAL EXAM GEN: awake, alert, no apparent distres HEENT: normocephalic, no scleral icterus, moist mucous membranes, NGT intact CV: regular rate LUNG: no respiratory distress, no audible wheezing ABDOMEN: soft, non-distended, non-tender to palpation. No rebound, guarding, or rigidity EXTREMITIES: No edema, cyanosis or clubbing Data: CBC with Differential: Lab Results Component Value Date/Time WBC 6.2 04/28/2023 05:00 AM RBC 3.24 04/28/2023 05:00 AM RBC 3.43 10/31/2010 11:48 AM HGB 10.7 04/28/2023 05:00 AM HCT 32.2 04/28/2023 05:00 AM PLT 283 04/28/2023 05:00 AM PLT 206 10/31/2010 11:48 AM MCV 99.4 04/28/2023 05:00 AM MCH 33.0 04/28/2023 05:00 AM MCHC 33.2 04/28/2023 05:00 AM RDW 12.9 04/28/2023 05:00 AM LYMPHOPCT 26 04/28/2023 05:00 AM MONOPCT 7 04/28/2023 05:00 AM BASOPCT 1 04/28/2023 05:00 AM MONOSABS 0.46 04/28/2023 05:00 AM LYMPHSABS 1.60 04/28/2023 05:00 AM EOSABS 0.25 04/28/2023 05:00 AM BASOSABS 0.04 04/28/2023 05:00 AM DIFFTYPE NOT REPORTED 04/13/2021 07:30 AM BMP: Lab Results Component Value Date/Time NA 147 04/28/2023 05:00 AM K 3.9 04/28/2023 05:00 AM CL 110 04/28/2023 05:00 AM CO2 27 04/28/2023 05:00 AM BUN 22 04/28/2023 05:00 AM LABALBU 3.7 02/10/2023 05:11 AM CREATININE 0.7 04/28/2023 05:00 AM CALCIUM 9.2 04/28/2023 05:00 AM GFRAA >60 09/10/2021 10:31 PM LABGLOM >60 04/28/2023 05:00 AM GLUCOSE 95 04/28/2023 05:00 AM GLUCOSE 92 10/31/2010 11:48 AM Radiology Review: XR ABDOMEN (KUB) (SINGLE AP VIEW) Result Date: 04/26/2023 EXAMINATION: ONE SUPINE XRAY VIEW(S) OF THE ABDOMEN 04/26/2023 8:59 am COMPARISON: 04/24/2023, 04/23/2023 HISTORY: ORDERING SYSTEM PROVIDED HISTORY: sbo vs ileus TECHNOLOGIST PROVIDED HISTORY: sbo vs ileus Reason for Exam: SBO vs ileus FINDINGS: Gas is present within nondilated small and large bowel. The enteric tube tip and side hole project at the level of the body of the stomach. Nonobstructive bowel gas pattern. Enteric tube remains in place. ASSESSMENT 68 year old male with small bowel obstruction versus ileus. Pt had small bowel follow through a few weeks ago which was normal, symptomatic presentation this admission likely related to anti-diarrheal medications. Plan Advance to full liquid diet and advance as tolerated Monitor intake and output Pt stable from general surgery standpoint. We will sign off at this time but are available as needed Encourage ambulation and incentive spirometer use Toshia Correa DO General Surgery PGY-3 04/28/23 7:44 AM Associated attestation - Donnie Patel MD - 04/28/2023 12:17 PM EST Attending Physician Statement I have discussed the case, including pertinent history and exam findings with the resident. I agree with the assessment, plan and orders as documented by the resident. Advance diet Recommend avoiding antidiarrheal meds Will sign off Pt remained calm and cooperative throughout shift. Pt remained on RA. Pt tolerating clear liquid diet. Brief changed as needed. Need for 1:1 still remains unnecessary, pt resting well since NG has been pulled. Diet to be advanced as tolerated and per order. Will continue with care plan. Occupational Therapy Facility/Department: [facility] Daily Treatment Note NAME: Amol Taylor : 1955 Date of Service: 04/27/2023 MILLER Skaggs reports patient is medically stable for therapy treatment this date. Chart reviewed prior to treatment and patient is agreeable for therapy. All lines intact and patient positioned comfortably at end of treatment. All patient needs addressed prior to ending therapy session. Discharge Recommendations: Patient would benefit from continued therapy after discharge OT Equipment Recommendations Equipment Needed: Yes (CTA) Mobility Devices: ADL Assistive Devices ADL Assistive Devices: Long-handled Sponge Patient Diagnosis(es): There were no encounter diagnoses. Assessment Assessment: Pt demo'd Fair tolerance for functional activity this session and is progressing towards STGs. Pt mildly impulsive w/ mobility, required MaxAx2 for bed mobility and Mod-MaxAx2 and hand held assist for functional transfer over to bedside recliner. Recommended use of jackie stedy device to nursing staff for transfer back to bed for safety. Pt remains limited by generalized weakness, decreased functional activity tolerance, decreased balance, and cognitive deficits. Continued skilled OT services are indicated at this time to maximize this pt's safety and participation in self care tasks and to facilitate safe return to OF as able. Activity Tolerance: Patient limited by fatigue;Treatment limited secondary to decreased cognition Discharge Recommendations: Patient would benefit from continued therapy after discharge Equipment Needed: Yes (CTA) Mobility Devices: ADL Assistive Devices Plan Occupational Therapy Plan Times Per Week: 4-5x/wk 1x/day as roxanne Current Treatment Recommendations: Strengthening;Balance training;Functional mobility training;Endurance training;Safety education & training;Equipment evaluation, education, & procurement;Self-Care / ADL;Patient/Caregiver education & training;Cognitive/Perceptual training Restrictions Restrictions/Precautions Restrictions/Precautions: General Precautions;Fall Risk;Seizure Required Braces or Orthoses?: No Position Activity Restriction Other position/activity restrictions: Up w/ assist, NGT (clamped during session), LUE IV, 1:1 sitter Subjective Subjective Subjective: Pt resting in bed upon entry to room, agreeable to therapy session and sitting OOB to chair. 1:1 sitter present in room throughout. Pt denies pain at rest. Orientation Orientation Level: Oriented to person Pain: denies pain complaint Cognition Overall Cognitive Status: Exceptions Arousal/Alertness: Appropriate responses to stimuli;Inconsistent responses to stimuli Following Commands: Follows one step commands with repetition;Follows one step commands with increased time Attention Span: Attends with cues to redirect;Difficulty attending to directions Safety Judgement: Decreased awareness of need for safety;Decreased awareness of need for assistance Problem Solving: Decreased awareness of errors;Assistance required to identify errors made;Assistance required to correct errors made;Assistance required to generate solutions;Assistance required to implement solutions Initiation: Requires cues for all Sequencing: Requires cues for all Objective Bed Mobility Training Bed Mobility Training: Yes Overall Level of Assistance: Moderate assistance;Maximum assistance;Assist X2 (Pt intially agreeable to sitting at EOB, attempted transfer w/ MaxAx2 & then pt began to transfer self back to supine. ModAx2 provided for safety, pt provided w/ rest break, then agreeable to sitting up to EOB again. Again required MaxAx2 to sit at EOB.) Interventions: Tactile cues;Verbal cues;Visual cues (MAX cues to initiate & sequence through progression towards EOB, line awareness and safe sitting position at the EOB. Pt impulsively moves UEs and total assist needed for line mgnt.) Rolling: Moderate assistance;Assist X2 Supine to Sit: Maximum assistance;Assist X2 Sit to Supine: Assist X2;Moderate assistance Balance Sitting: With support (Fluctuated while seated at EOB; pt at times able to sit with CGA and other times needing MaxA d/t posterior lean and attempts to transfer self back to supine position.) Standing: With support (ModA x 2 with hand held assist) Transfer Training Transfer Training: Yes Overall Level of Assistance: Moderate assistance;Maximum assistance;Assist X2 (Pt transferred EOB>standing w/ Mod-MaxA x 2 and hand held assist; pt moves impulsively and needed assist w/ line mgnt. Pt cued for upright posture in standing and for safety, as pt attempting to sit in recliner before fully squared to surface.) Interventions: Safety awareness training;Tactile cues;Verbal cues Sit to Stand: Moderate assistance;Maximum assistance;Assist X2 Stand to Sit: Moderate assistance;Maximum assistance;Assist X2 Bed to Chair: Maximum assistance;Moderate assistance;Assist X2 ADL UE Dressing: Maximum assistance UE Dressing Skilled Clinical Factors: For gown mgnt during session for increased modesty LE Dressing: Dependent/Total Toileting: Dependent/Total Functional Mobility: Maximum assistance;Moderate assistance;Increased time to complete (2 person assist) Functional Mobility Skilled Clinical Factors: Pt needing Mod-MaxAx2 and hand held assist to take small steps from EOB>recliner. Total assist provided for line mgnt and pt cued for upright posture, safety when up in function, and fully squaring self to chair prior to sitting down, as pt fatigued quickly and was attempting to sit as pt approached chair. Recommended use of jackie stedy to RN/nursing staff for safe transfer back to bed. Additional Comments: Pt's ADL performance limited by cognitive deficits, generalized weakness and decreased balance. Pt required 2 staff assist for safe engagement in bed mobility, transfers and functional mobility tasks. Pt impulsive at times and is a HIGH fall risk. Attempted to facilitate AROM to BUEs to all available planes once seated at recliner, with pt becoming agitated with attempts to exercise, so discontinued at this time. Safety Devices Type of Devices: Call light within reach;Gait belt;Nurse notified;Sitter present;All fall risk precautions in place;Chair alarm in place;Left in chair Restraints Restraints Initially in Place: No Patient Education Education Given To: Patient Education Provided: Role of Therapy;Transfer Training;Plan of Care;Fall Prevention Strategies;ADL Adaptive Strategies;Home Exercise Program;Precautions Education Method: Verbal Barriers to Learning: Cognition Education Outcome: Continued education needed;Unable to demonstrate understanding;Unable to verbalize Goals Short Term Goals Time Frame for Short Term Goals: By discharge, pt to demo Short Term Goal 1: ADL transfers and functional mobility to Min A with use of AD and proper construction safety consultant. Short Term Goal 2: grooming task to Min A with use of AD/AE and verbal cues as needed. Short Term Goal 3: I with simple B UE HEP to maintain strength for functional tasks with use of handouts as needed. Short Term Goal 4: increased standing roxanne > 5 min with Min A using AD as needed to reduce risk of falls during functional tasks. Short Term Goal 5: increased sitting roxanne > 15 min with CGA to assist with completion of ADL routine. Rn Invasive Goals Rn Invasive Goal 1: Pt/caregiver to be I with fall prevention edu, EC/WS tech, recommendations for discharge/AE, pressure relief/skin integrity edu with use of handouts as needed. Patient Goals Patient goals : Did not state! AM-PAC - ADL AM-PAC Daily Activity - Inpatient How much help is needed for putting on and taking off regular lower body clothing?: Total How much help is needed for bathing (which includes washing, rinsing, drying)?: A Lot How much help is needed for toileting (which includes using toilet, bedpan, or urinal)?: A Lot How much help is needed for putting on and taking off regular upper body clothing?: A Lot How much help is needed for taking care of personal grooming?: A Lot How much help for eating meals?: A Little AM-PAC Inpatient Daily Activity Raw Score: 12 AM-PAC Inpatient ADL T-Scale Score : 30.6 ADL Inpatient CMS 0-100% Score: 66.57 ADL Inpatient CMS G-Code Modifier : CL Therapy Time Individual Concurrent Group Co-treatment Time In 0820 Time Out 0844 Minutes 24 Co-treatment with PT warranted secondary to decreased safety and independence requiring 2 skilled therapy professionals to address individual discipline's goals. OT addressing preparation for ADL transfer, sitting balance for increased ADL performance, fall prevention, functional mobility for ADL transfers, ability to sequence and follow directions, bed mobility tech, and functional UE strength. Essie Yeung OT NG removed per order at 1345. Patient tolerated well 1500- pt started on clear liquid diet tolerated well, 1:1 sitter discontinued. Will increase frequency of rounds to maintain pt. safety. Images from the original note were not included. [facility] Neurology Specialist [facility] [facility] [address] [place] [address] PH: [phone] or [phone] FAX: [phone] Brief history: Amol Taylor is a 68 y.o. old male admitted on 04/24/2023 with SBO. Subjective: No new neurological events overnight. EEG reviewed and showed encephalopathy. Patient has a VNS and family to bring in magnet. Objective: BP 113/78 Pulse 83 Temp 97.9 F (36.6 C) Resp 20 Ht 1.778 m (5' 10 ) Wt 72.3 kg (159 lb 6.3 oz) SpO2 94% BMI 22.87 kg/m Medications: lacosamide (VIMPAT) 150 mg in sodium chloride 0.9 % 65 mL IVPB 150 mg IntraVENous BID levETIRAcetam 1,500 mg IntraVENous Daily levETIRAcetam 2,000 mg IntraVENous Nightly sodium chloride flush 5-40 mL IntraVENous 2 times per day enoxaparin 40 mg SubCUTAneous Daily Physical Exam: BP 113/78 Pulse 83 Temp 97.9 F (36.6 C) Resp 20 Ht 1.778 m (5' 10 ) Wt 72.3 kg (159 lb 6.3 oz) SpO2 94% BMI 22.87 kg/m Temp (24hrs), Av.8 F (36.6 C), Min:97.6 F (36.4 C), Max:98.2 F (36.8 C) General examination: General Appearance: alert, ill appearing, and in no acute distress HEENT: Normocephalic, atraumatic, +NG tube Neck: supple, no carotid bruits, (-) nuchal rigidity Lungs: Respirations unlabored, chest wall no deformity, BS normal Cardiovascular: normal rate, regular rhythm Abdomen: +distended Skin: No gross lesions, rashes, bruising or bleeding on exposed skin area Extremities: peripheral pulses palpable, no cyanosis, clubbing or edema Neurological examination: Mental status Developmentally delayed, dysarthria, AxOx2-3, slightly agitated Cranial nerves II - visual matta intact to confrontation; pupils reactive III, IV, - extraocular muscles intact; no CHAKA; no nystagmus; no ptosis V - normal facial sensation VII - normal facial symmetry VIII - intact hearing IX, X - symmetrical palate elevation XI - symmetrical shoulder shrug XII - midline tongue without atrophy or fasciculation Motor function Strength: 5/5 RUE, 5/5 RLE, 5/5 LUE, 5/5 LLE Normal bulk and tone. No tremors Sensory function Intact to touch, pin, vibration, proprioception throughout Cerebellar Intact kcxvkn-iufz-lzqjgy testing. Intact heel-monge testing. No dysdiadochokinesia present. Reflex function 2/4 symmetric throughout . Downgoing plantar response bilaterally. (-)Light's sign bilaterally Gait Not tested Diagnostics: Laboratory Testing: CBC: Recent Labs 04/25/23 1157 04/26/23 0518 04/27/23 0607 WBC 6.5 8.1 7.9 HGB 10.2* 10.9* 11.0* PLT 283 267 242 BMP: Recent Labs 04/25/23 1157 04/26/23 0518 04/27/23 0517 NA 142 147* 148* K 3.7 3.6* 3.9 CL 105 106 106 CO2 28 28 24 BUN 23 23 21 CREATININE 0.8 0.8 0.7 GLUCOSE 83 83 69* Lab Results Component Value Date CHOL 155 04/13/2021 LDLCHOLESTEROL 94 04/13/2021 HDL 50 04/13/2021 TRIG 53 04/13/2021 ALT 16 02/10/2023 AST 16 02/10/2023 INR 1.5 02/11/2023 [id number] 295 03/22/2022 MG 1.7 09/03/2022 PHOS 3.5 11/05/2013 No results found for: PHENYTOIN , PHENOBARB , VALPROATE , CBMZ Imaging/Diagnostics: Results for orders placed during the hospital encounter of 06/12/22 CT Head WO Contrast Narrative EXAMINATION: CT OF THE HEAD WITHOUT CONTRAST [...] intact. No appreciable scalp soft tissue swelling. Impression 1. No acute intracranial abnormality. 2. 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 3. Chronic microvascular white matter ischemic disease. I personally reviewed all of the above medications, clinical laboratory, imaging and other diagnostic tests. Impression: This is a 68 year old male with history of MRD, SBO who presented for worsening symptoms. Neurology asked to consult due to possible seizure like activity. No further episodes witnessed and patient appears tp be close to baseline during exam. Plan: Re-ordered home med of Vimpat 150mg BID EEG reviewed Keppra increased to 1500mg BID Patient has a VNS- family to bring in magnet Seizure precautions Remaining care per primary team Nothing further to add. Will sign off. Please call with questions. This note is created with the assistance of a speech-recognition program. While intending to generate a document that actually reflects the content of the visit, the document can still have some errors including those of syntax and sound a- like substitutions which may escape proofreading. In such instances, actual meaning can be extrapolated by contextual derivation. Physical Therapy Facility/Department: [facility] Daily Treatment Note NAME: Amol Taylor : 1955 Date of Service: 04/27/2023 MILLER Skaggs reports patient is medically stable for therapy treatment this date. Chart reviewed prior to treatment and patient is agreeable for therapy. All lines intact and patient positioned comfortably at end of treatment. All patient needs addressed prior to ending therapy session. Discharge Recommendations: Patient would benefit from continued therapy after discharge PT Equipment Recommendations Equipment Needed: No Patient Diagnosis(es): There were no encounter diagnoses. Assessment Assessment: 68 y/o male referred to PT. Cognition a barrier to therapy progression. Patient requiring mod-max assist x2 with bed mobility; transfers and gait with STEERSMAN from EOB to bedside chair. TD with line management. Impulsive behaviors intermittently. Patient requires redirecting to task. Patient is functioning below baseline and would benefit from continued PT Activity Tolerance: Patient limited by fatigue;Treatment limited secondary to decreased cognition Equipment Needed: No Plan Physical Therapy Plan General Plan: 5-7 times per week Current Treatment Recommendations: Strengthening;ROM;Balance training;Functional mobility training;Transfer training;Neuromuscular re-education;Home exercise program;Endurance training;Safety education & training;Patient/Caregiver education & training;Equipment evaluation, education, & procurement;Therapeutic activities;Positioning Restrictions Restrictions/Precautions Restrictions/Precautions: General Precautions, Fall Risk, Seizure Required Braces or Orthoses?: No Position Activity Restriction Other position/activity restrictions: Up w/ assist, NG tube to suction, LUE IV Subjective Subjective Subjective: Pt supine in bed upon arrival w/ sitter and RN present at bedside. RN okayed patient for therpy. Patient agreeable. Pain: denies pain complaint Orientation Orientation Level: Oriented to person Cognition Arousal/Alertness: Appropriate responses to stimuli;Inconsistent responses to stimuli Following Commands: Follows one step commands with repetition;Follows one step commands with increased time Attention Span: Attends with cues to redirect;Difficulty attending to directions Problem Solving: Decreased awareness of errors;Assistance required to identify errors made;Assistance required to correct errors made Initiation: Requires cues for some Sequencing: Requires cues for some Objective Bed Mobility Training Bed Mobility Training: Yes Overall Level of Assistance: Moderate assistance;Maximum assistance;Assist X2 Interventions: Tactile cues to advance LE to EOB;Verbal cues to facilitate supine to sit EOB; Requires redirecting to task Supine to Sit: Maximum assistance;Assist X2 Sit to supine: DNT (Patient retired in bedside chair with 1:1 sitter) Transfer Training Transfer Training: Yes Overall Level of Assistance: Moderate assistance;Maximum assistance;Assist X2 Interventions: Safety awareness training;Tactile cues to initiate task;Verbal cues for sequencing Sit to Stand: Moderate assistance;Maximum assistance (STS from EOB with max cues; TD with line management) Stand to Sit: Moderate assistance;Maximum assistance;Assist X2 Gait Training Gait Training: Yes Right Side Weight Bearing: As tolerated Left Side Weight Bearing: As tolerated Gait Gait Training: Yes Overall Level of Assistance: Assist X2;Moderate assistance Distance: Unsteady gait from EOB to bedside chair with STEERSMAN Interventions: Verbal and tactile cues for sequencing; Safety Devices Type of Devices: Call light within reach;Left in bed;Gait belt;Nurse notified;Sitter present;Chair alarm in place Restraints Restraints Initially in Place: No Goals Short Term Goals Time Frame for Short Term Goals: 12 visits Short Term Goal 1: Pt to demonstrate bed mobility independently Short Term Goal 2: Pt to perform bed>chair transfers ModA Short Term Goal 3: Pt to require Ruma for regular pressure relief techniques in order to maintain skin integrity and prevent pressure injuries Short Term Goal 4: Pt to actively participate in at least 30 minutes of physical therapy for ther act & ther ex Patient Goals Patient Goals : Did not verbalize goals Education Patient Education Education Given To: Patient Education Provided: Role of Therapy;Plan of Care Verbal edu provided regarding fall prevention in the areas of community safety, transportation, proper footwear and clothing, reducing risk of falls, environmental modifications, importance of exercise, consequences of falling, plan if a fall occurs ( rest and wait vs up and about ). Pt is at risk for skin breakdown. Pt educated on pressure relief measures. Pt reports being comfortable at end of treatment. Education Method: Verbal Barriers to Learning: Cognition Education Outcome: Continued education needed AM-PAC - Mobility AM-PAC Basic Mobility - Inpatient How much help is needed turning from your back to your side while in a flat bed without using bedrails?: A Little How much help is needed moving from lying on your back to sitting on the side of a flat bed without using bedrails?: A Lot How much help is needed moving to and from a bed to a chair?: A Lot How much help is needed standing up from a chair using your arms?: A Lot How much help is needed walking in hospital room?: A Lot How much help is needed climbing 3-5 steps with a railing?: Total AM-PAC Inpatient Mobility Raw Score : 12 AM-PAC Inpatient T-Scale Score : 35.33 Mobility Inpatient CMS 0-100% Score: 68.66 Mobility Inpatient CMS G-Code Modifier : CL Therapy Time Individual Concurrent Group Co-treatment Time In 0822 Time Out 0846 Minutes 24 Treatment Time: 24 minutes Co-treatment with OT warranted secondary to decreased safety and independence requiring 2 skilled therapy professionals to address individual discipline's goals. PT addressing core control in transitions with bed mobility & transfers, seated/standing posture, pressure relief, seated & standing postural alignment and breathing techniques, safety/scanning, & fall prevention in ambulation techniques. Kathy Elliott, PT Images from the original note were not included. [facility] Office: [phone] Braydon Isbell DO, Eliazar Zuñiga DO, Carmen Kern DO, Bolivar Valdovinos DO, Evelyn Mitchell MD, Rita Pope MD, Tammy Cox MD, Hannah Mata MD, Dimas Fuentes MD, Vasyl Stanley MD, Reva Galindo MD, Mark Coleman DO, Rochelle Almanza MD, Aron Serna MD, Irwin Isbell DO, Livia Andino MD, Aman Hester DO, Kiarra Plasencia MD, Abby Pino MD, Kerrie Mccoy MD, Kennedi Spicer MD, Houston Frye MD, Elder Scott MD, Christofer Spencer MD, Erinn Nunez MD, Raeann Rodriguez MD, Kelly Owusu MD, Yana Munoz DO, Paresh Baker DO, Shwetha Qureshi MD, Domenico Rae MD, Dorota Escobar CNP, Leonie Murillo CNP, Beau Mccoy CNP, Melany Cormier DNP, Simran Villa CNP, Maureen Williamson CNP, Gloria Faust CNP, Toshia Cho CNP, Hattie Taylor CNP, Ellen Loja PA-C, SURAJ MartinezC, Zaria Flores, OTONIEL, Shani Patrick, OTONIEL, Reva Vaughan, OTONIEL, Corinne Stanton, JOSE ROBERTO, Manda Feldman CNP, Carleen Agarwal CNP, Sobeida Thornton, OTONIEL [facility] IN-PATIENT SERVICE [facility] Progress Note 04/27/2023 9:50 AM Name: Amol Taylor Acct: [id number] Room: [facility] Day: 3 Admit Date: 04/24/2023 10:56 PM PCP: Carson Matamoros MD Code Status: Full Code Subjective: C/C: Small bowel obstruction Interval History Status: not changed. Patient continues with NG tube to low intermittent suction, he denies any complaints of chest pain, shortness of breath, nausea or vomiting, fevers chills, abdominal pain or other acute complaints Brief History: This is a six 8-year-old male with history of MRDD and prior bowel obstructions that presents as a transfer from [facility] with recurrent bowel obstruction. Apparently at the long term and noted decreasing abdominal distention and complaints of pain and was sent to the emergency room. He had NG tube placed and was transferred to our facility for further management. He had a recent hospital stay at [facility] apparently family refused for him to go back to their facility. Review of Systems: Constitutional: negative for chills, fevers, sweats Respiratory: negative for cough, dyspnea on exertion, shortness of breath, wheezing Cardiovascular: negative for chest pain, chest pressure/discomfort, lower extremity edema, palpitations Gastrointestinal: negative for abdominal pain, constipation, diarrhea, nausea, vomiting Neurological: negative for dizziness, headache Medications: Allergies: Allergies Allergen Reactions Penicillins Hives, Shortness Of Breath and Swelling Sodium Hypochlorite Hives and Itching Clindamycin Rash Current Meds: Scheduled Meds: lacosamide (VIMPAT) 150 mg in sodium chloride 0.9 % 65 mL IVPB 150 mg IntraVENous BID levETIRAcetam 1,500 mg IntraVENous Daily levETIRAcetam 2,000 mg IntraVENous Nightly sodium chloride flush 5-40 mL IntraVENous 2 times per day enoxaparin 40 mg SubCUTAneous Daily Continuous Infusions: sodium chloride 5 mL/hr at 04/27/23 0825 PRN Meds: LORazepam, sodium chloride flush, sodium chloride, potassium chloride OR potassium alternative oral replacement OR potassium chloride, magnesium sulfate, ondansetron OR ondansetron, acetaminophen OR acetaminophen, prochlorperazine Data: Past Medical History: has a past medical history of Arthritis, BPH (benign prostatic hyperplasia), Dysphagia, GERD (gastroesophageal reflux disease), Hearing loss, HLD (hyperlipidemia), Insomnia, MR (mental retardation), Periorbital cellulitis, SBO (small bowel obstruction) (HCC), Seizures (HCC), Ventral hernia, and Vitamin D deficiency. Social History: reports that he has never smoked. He does not have any smokeless tobacco history on file. He reports that he does not drink alcohol and does not use drugs. Family History: Family History Problem Relation Age of Onset High Blood Pressure Mother Thyroid Cancer Mother Other Mother Myeloma Heart Disease Mother 2 Stents Arthritis Mother 2 Back surgeries Lung Cancer Father Heart Disease Brother Defibrilator Heart Attack Maternal Grandfather Diabetes Paternal Grandmother Vitals: BP 124/74 Pulse 72 Temp 98.2 F (36.8 C) Resp 18 Ht 1.778 m (5' 10 ) Wt 72.3 kg (159 lb 6.3 oz) SpO2 94% BMI 22.87 kg/m Temp (24hrs), Av.8 F (36.6 C), Min:97.5 F (36.4 C), Max:98.2 F (36.8 C) No results for input(s): POCGLU in the last 72 hours. I/O (24Hr): Intake/Output Summary (Last 24 hours) at 04/27/2023 0950 Last data filed at 04/27/2023 0652 Gross per 24 hour Intake 1967.55 ml Output 1300 ml Net 667.55 ml Labs: Hematology: Recent Labs 04/25/23 1157 04/26/23 0518 04/27/23 0607 WBC 6.5 8.1 7.9 RBC 3.11* 3.29* 3.35* HGB 10.2* 10.9* 11.0* HCT 32.0* 33.5* 34.4* MCV 102.9 101.8 102.7 MCH 32.8 33.1 32.8 MCHC 31.9 32.5 32.0 RDW 13.2 13.1 12.8 PLT 283 267 242 MPV 8.9 8.8 8.8 Chemistry: Recent Labs 04/25/23 1157 04/26/23 0518 04/27/23 0517 NA 142 147* 148* K 3.7 3.6* 3.9 CL 105 106 106 CO2 28 28 24 GLUCOSE 83 83 69* BUN 21 CREATININE 0.8 0.8 0.7 ANIONGAP 9 13 18* LABGLOM >60 >60 >60 CALCIUM 9.2 9.6 9.2 No results for input(s): PROT , LABALBU , LABA1C , M5ONRNR , H4HSACF , FT4 , TSH , AST , ALT , LDH , GGT , ALKPHOS , LABGGT , BILITOT , BILIDIR , AMMONIA , AMYLASE , LIPASE , LACTATE , CHOL , HDL , LDLCHOLESTEROL , CHOLHDLRATIO , TRIG , VLDL , OVS91EV , PHENYTOIN , PHENYF , URICACID , POCGLU in the last 72 hours. ABG:No results found for: POCPH , PHART , PH , POCPCO2 , EFQ1FJM , PCO2 , POCPO2 , PO2ART , PO2 , POCHCO3 , SHD1XIE , HCO3 , NBEA , PBEA , BEART , BE , THGBART , THB , HTO5TWB , POAV6VGK , C3YLJNYC , O2SAT , FIO2 Lab Results Component Value Date/Time SPECIAL NOT REPORTED 12/05/2018 06:15 AM Lab Results Component Value Date/Time CULTURE NO GROWTH 5 DAYS 02/11/2023 10:25 PM Radiology: XR ABDOMEN (KUB) (SINGLE AP VIEW) Result Date: 04/26/2023 Nonobstructive bowel gas pattern. Enteric tube remains in place. XR CHEST PORTABLE Result Date: 04/25/2023 Enteric tube in satisfactory position. No acute process in the lungs. XR ABDOMEN FOR NG/OG/NE TUBE PLACEMENT Result Date: 04/25/2023 1. NG tube extends into the upper stomach. 2. Moderate amount of gas and stool scattered in the proximal and mid colon. Moderate amount of gas can be identified in some loops of small bowel mainly in the left side of abdomen. Physical Examination: General appearance: alert, cooperative and no distress Mental Status: oriented to person, place and time and normal affect Lungs: clear to auscultation bilaterally, normal effort Heart: regular rate and rhythm, no murmur Abdomen: soft, nontender, nondistended, normal bowel sounds, no masses, hepatomegaly, splenomegaly Extremities: no edema, redness, tenderness in the calves Skin: no gross lesions, rashes, induration Assessment: Hospital Problems Last Modified POA * (Principal) Small bowel obstruction (HCC) 04/25/2023 Yes Seizures (HCC) Chronic (Chronic) 04/25/2023 Yes MR (mental retardation), severe (Chronic) 04/25/2023 Yes Overview Signed 08/12/2018 8:51 AM by Ambulatory, Admin Replacing deprecated diagnoses Epilepsy (HCC) 04/25/2023 Yes AFTAB (obstructive sleep apnea) 04/25/2023 Yes Seizure-like activity (HCC) 04/26/2023 Yes Plan: Continue IV hydration NG to LIWS Activity as tolerated, PT and OT Continue seizure medications Home CPAP GI and DVT prophylaxis Avoid antidiarrheals. Carmen Kern DO 04/27/2023 9:50 AM Pt remained overall calm and cooperative tonight, but fidgety and itchy. Lotion applied to affected areas. 1:1 sitter remains. NG output dark brown, remains connected to intermittent suction. No seizure activity this shift. Pt remained on RA. Will continue with care plan General Surgery Progress Note PATIENT NAME: Amol Taylor TODAY'S DATE: 04/27/2023, 5:27 AM SUBJECTIVE: Patient seen and examined at bedside. No acute events overnight. VSS, afebrile. Patient states he is feeling well this morning. Denies any abdominal pain. NGT intact with 700 cc output overnight. Patient with one recorded bowel movement yesterday. KUB yesterday with non-obstructive bowel gas pattern with gas noted in the colon and rectum. He is passing flatus. ROS: Gen: No fever or chills Eyes: No conjunctivitis ENT: No sinus congestion or sore throat CV: No chest pain Pulm: No cough or shortness of breath GI: No abdominal pain, nausea or vomiting Renal: No dysuria or hematuria Neuro: No difficulty with speech or acute extremity weakness Skin: No rashes or ulcers OBJECTIVE: VITALS: BP 132/70 Pulse 50 Temp 97.9 F (36.6 C) Resp 16 Ht 1.778 m (5' 10 ) Wt 77.2 kg (170 lb 1.6 oz) SpO2 97% BMI 24.41 kg/m INTAKE/OUTPUT: Intake/Output Summary (Last 24 hours) at 04/27/2023 0527 Last data filed at 04/26/2023 1658 Gross per 24 hour Intake -- Output 600 ml Net -600 ml PHYSICAL EXAM GEN: awake, alert, no apparent distres HEENT: normocephalic, no scleral icterus, moist mucous membranes, NGT intact CV: regular rate LUNG: no respiratory distress, no audible wheezing ABDOMEN: soft, non-distended, non-tender to palpation. No rebound, guarding, or rigidity EXTREMITIES: No edema, cyanosis or clubbing Data: CBC with Differential: Lab Results Component Value Date/Time WBC 7.9 04/27/2023 06:07 AM RBC 3.35 04/27/2023 06:07 AM RBC 3.43 10/31/2010 11:48 AM HGB 11.0 04/27/2023 06:07 AM HCT 34.4 04/27/2023 06:07 AM PLT 242 04/27/2023 06:07 AM PLT 206 10/31/2010 11:48 AM MCV 102.7 04/27/2023 06:07 AM MCH 32.8 04/27/2023 06:07 AM MCHC 32.0 04/27/2023 06:07 AM RDW 12.8 04/27/2023 06:07 AM LYMPHOPCT 20 04/27/2023 06:07 AM MONOPCT 6 04/27/2023 06:07 AM BASOPCT 1 04/27/2023 06:07 AM MONOSABS 0.49 04/27/2023 06:07 AM LYMPHSABS 1.55 04/27/2023 06:07 AM EOSABS 0.11 04/27/2023 06:07 AM BASOSABS 0.06 04/27/2023 06:07 AM DIFFTYPE NOT REPORTED 04/13/2021 07:30 AM BMP: Lab Results Component Value Date/Time NA 148 04/27/2023 05:17 AM K 3.9 04/27/2023 05:17 AM CL 106 04/27/2023 05:17 AM CO2 24 04/27/2023 05:17 AM BUN 21 04/27/2023 05:17 AM LABALBU 3.7 02/10/2023 05:11 AM CREATININE 0.7 04/27/2023 05:17 AM CALCIUM 9.2 04/27/2023 05:17 AM GFRAA >60 09/10/2021 10:31 PM LABGLOM >60 04/27/2023 05:17 AM GLUCOSE 69 04/27/2023 05:17 AM GLUCOSE 92 10/31/2010 11:48 AM Radiology Review: XR ABDOMEN (KUB) (SINGLE AP VIEW) Result Date: 04/26/2023 EXAMINATION: ONE SUPINE XRAY VIEW(S) OF THE ABDOMEN 04/26/2023 8:59 am COMPARISON: 04/24/2023, 04/23/2023 HISTORY: ORDERING SYSTEM PROVIDED HISTORY: sbo vs ileus TECHNOLOGIST PROVIDED HISTORY: sbo vs ileus Reason for Exam: SBO vs ileus FINDINGS: Gas is present within nondilated small and large bowel. The enteric tube tip and side hole project at the level of the body of the stomach. Nonobstructive bowel gas pattern. Enteric tube remains in place. ASSESSMENT 68 year old male with small bowel obstruction versus ileus Plan Clamp NGT. Will monitor how patient does with clamp trial and will consider removal with initiation of clear liquid diet this afternoon if tolerates. Monitor intake and output Monitor abdominal exam No anti-diarrheals please Encourage ambulation and incentive spirometer use Yennifer Santos, DO PGY-4 04/27/2023 at 5:27 AM Attending Physician Statement I have discussed the case, including pertinent history and exam findings with the resident. I agree with the assessment, plan and orders as documented by the resident. Attempt clamping NGT Possibly remove NGT and start clear liquids EEG completed full report to follow Occupational Therapy Facility/Department: [facility] Daily Treatment Note NAME: Amol Taylor : 1955 MILLER Savage reports patient is medically stable for therapy treatment this date. Chart reviewed prior to treatment and patient is agreeable for therapy. All lines intact and patient positioned comfortably at end of treatment. All patient needs addressed prior to ending therapy session. Date of Service: 04/26/2023 Discharge Recommendations: Patient would benefit from continued therapy after discharge Due to recent hospitalization and medical condition, pt would benefit from additional intermittent skilled therapy at time of discharge. Please refer to the AM-PAC score for current functional status. OT Equipment Recommendations Equipment Needed: Yes (CTA) ADL Assistive Devices: Long-handled Sponge Patient Diagnosis(es): There were no encounter diagnoses. Assessment Assessment: Pt would benefit from continued skilled OT services to increase I and safety during functional tasks to return home at prior level of function as able. Activity Tolerance: Treatment limited secondary to decreased cognition;Patient limited by endurance Discharge Recommendations: Patient would benefit from continued therapy after discharge Equipment Needed: Yes (CTA) Plan Occupational Therapy Plan Times Per Week: 4-5x/wk 1x/day as roxanne Current Treatment Recommendations: Strengthening;Balance training;Functional mobility training;Endurance training;Safety education & training;Equipment evaluation, education, & procurement;Self-Care / ADL;Patient/Caregiver education & training;Cognitive/Perceptual training Restrictions Restrictions/Precautions Restrictions/Precautions: General Precautions;Fall Risk;Seizure Required Braces or Orthoses?: No Position Activity Restriction Other position/activity restrictions: Up w/ assist, NG tube to suction, LUE IV Subjective Subjective Subjective: Pt resting in bed, minimally verbal but agreeable to OT tx session. Pain: No indication of pain throughout session. Orientation Orientation Level: Oriented to person Cognition Overall Cognitive Status: Exceptions Arousal/Alertness: Appropriate responses to stimuli;Inconsistent responses to stimuli Following Commands: Follows one step commands with repetition;Follows one step commands with increased time Attention Span: Attends with cues to redirect;Difficulty attending to directions Problem Solving: Decreased awareness of errors;Assistance required to identify errors made;Assistance required to correct errors made Initiation: Requires cues for some Sequencing: Requires cues for some Objective Bed Mobility Training Bed Mobility Training: Yes Overall Level of Assistance: Moderate assistance;Maximum assistance;Assist X2 (Pt completed bed mobility with diffiuclites this date. Pt given Max verbal/tactile cues for intiiation, sequencing, use of bedrail, progression and line mgmt. Pt denied any dizziness once seated on EOB.) Rolling: Moderate assistance;Assist X2 Supine to Sit: Maximum assistance;Assist X2 Sit to Supine: Assist X2;Moderate assistance Scooting: Maximum assistance Balance Sitting: (Pt tolerated sitting on EOB ~ 5 min to complete exercises, pt required fluctuating assist levels from CGA to Mod A. MAX verbal cues needed to maintain pts attention to task/balance.) Standing: (Mod A x 2 with B handheld assistance) Transfer Training Transfer Training: Yes Overall Level of Assistance: Moderate assistance;Maximum assistance;Assist X2 (Pt completed STS transfers with difficulites this date with B hand held assistance. Pt given Mod verbal cues for initiation, sequencing, controlled stand to sit, slowing down and weight shifting.) Interventions: Safety awareness training;Tactile cues;Verbal cues Sit to Stand: Moderate assistance;Maximum assistance Stand to Sit: Moderate assistance;Maximum assistance;Assist X2 Neuromuscular Education Neuromuscular education: Yes NDT Treatment: Sitting;Standing ADL UE Dressing: Maximum assistance;Setup;Dependent/Total (to tie/adjust hosp gown for modesty) LE Dressing: Dependent/Total (to adjust B socks while supine in bed) Functional Mobility: Maximum assistance (x2 assitance) Functional Mobility Skilled Clinical Factors: Pt completed steps in place and lateral steps towards HOB with B hand held assistance. Pt given Max verbal cues/tactile cues for initiation, sequencing, upright posture, weight shifting, progression of BLE's. Pt very unsteady/impulsive. Would recommend non therapy staff use Jackie Stedy to safely mobilize pt. OT Exercises Exercise Treatment: Attempted to have pt complete UB exercises while seated on EOB. Pt unwilling to attempt despite MAX verbal cues/demonstration. Safety Devices Type of Devices: Bed alarm in place;Call light within reach;Left in bed;Gait belt;Nurse notified;Sitter present (RN and sitter in room with pt at end of session) Restraints Restraints Initially in Place: No Patient Education Education Given To: Patient Education Provided: Role of Therapy;Transfer Training;Equipment;Plan of Care;Energy Conservation;Fall Prevention Strategies;ADL Adaptive Strategies Education Provided Comments: safety in function, pressure relief fall prevention/call light use, OT POC, role of OT in acute care, benefits of being OOB, recommendations for discharge/AE Education Method: Verbal Barriers to Learning: Cognition Education Outcome: Continued education needed;Unable to demonstrate understanding;Unable to verbalize Goals Short Term Goals Time Frame for Short Term Goals: By discharge, pt to demo Short Term Goal 1: ADL transfers and functional mobility to Min A with use of AD and proper construction safety consultant. Short Term Goal 2: grooming task to Min A with use of AD/AE and verbal cues as needed. Short Term Goal 3: I with simple B UE HEP to maintain strength for functional tasks with use of handouts as needed. Short Term Goal 4: increased standing roxanne > 5 min with Min A using AD as needed to reduce risk of falls during functional tasks. Short Term Goal 5: increased sitting roxanne > 15 min with CGA to assist with completion of ADL routine. Rn Invasive Goals Fdc Goal 1: Pt/caregiver to be I with fall prevention edu, EC/WS tech, recommendations for discharge/AE, pressure relief/skin integrity edu with use of handouts as needed. Patient Goals Patient goals : Did not state! AM-PAC - ADL AM-PAC Daily Activity - Inpatient How much help is needed for putting on and taking off regular lower body clothing?: Total How much help is needed for bathing (which includes washing, rinsing, drying)?: A Lot How much help is needed for toileting (which includes using toilet, bedpan, or urinal)?: Total How much help is needed for putting on and taking off regular upper body clothing?: A Lot How much help is needed for taking care of personal grooming?: A Lot How much help for eating meals?: A Little AM-PAC Inpatient Daily Activity Raw Score: 11 AM-PAC Inpatient ADL T-Scale Score : 29.04 ADL Inpatient CMS 0-100% Score: 70.42 ADL Inpatient CMS G-Code Modifier : CL Therapy Time Individual Concurrent Group Co-treatment Time In 1038 Time Out 1050 Minutes 12 Co-treatment with PT warranted secondary to decreased safety and independence requiring 2 skilled therapy professionals to address individual discipline's goals. Beena ELAM OT Physical Therapy Facility/Department: [facility] Rehabilitation Physical Therapy Treatment Note NAME: Amol Taylor : 1955 (68 y.o.) CODE STATUS: Full Code Date of Service: 04/26/23 RN Sharifa reports patient is medically stable for therapy treatment this date. Chart reviewed prior to treatment and patient is agreeable for therapy. All lines intact and patient positioned comfortably at end of treatment. All patient needs addressed prior to ending therapy session. Discharge Recommendation: Due to recent hospitalization and medical condition, pt would benefit from additional intermittent skilled therapy at time of discharge. Please refer to the AM-PAC score for current functional status. AMPAC Score: 10 Restrictions: Restrictions/Precautions: General Precautions, Fall Risk, Seizure Position Activity Restriction Other position/activity restrictions: Up w/ assist, NG tube to suction, LUE IV SUBJECTIVE Subjective Subjective: RN and pt agreeable to therapy. Pt supine in bed upon arrival w/ sitter present at bedside. Pt minimally conversive w/ junior underwriter however stating he slept fine last night. OBJECTIVE Cognition Overall Cognitive Status: Exceptions Arousal/Alertness: Appropriate responses to stimuli;Inconsistent responses to stimuli Following Commands: Follows one step commands with repetition;Follows one step commands with increased time Attention Span: Attends with cues to redirect;Difficulty attending to directions Problem Solving: Decreased awareness of errors;Assistance required to identify errors made;Assistance required to correct errors made Initiation: Requires cues for some Sequencing: Requires cues for some Orientation Orientation Level: Oriented to person Functional Mobility Bed Mobility Overall Assistance Level: Moderate Assistance;Maximum Assistance;Requires x 2 Assistance Additional Factors: Set-up;Verbal cues;Increased time to complete;Head of bed raised;With handrails Sit to Supine Assistance Level: Moderate assistance;Requires x 2 assistance Supine to Sit Assistance Level: Maximum assistance;Requires x 2 assistance Skilled Clinical Factors: Pt w/ significant difficulty throughout bed mobility this date requiring increased time and effort to perform tasks throughout. Pt requiring max verbal and tactile cueing for initiation, progression, and sequencing of BLE & trunk throughout w/ poor return demo. Pt able to initiate BLE towards EOB however requiring assist to progress off EOB and initiate trunk movement. Pt denying any dizziness/lightheadedness upon sitting at EOB. Pt's sitting balance fluctuating between CGA-MaxA throughout as w/ difficulty sitting still and frequently swaying anterior/posterior however too far to correct w/o assist. Scooting Assistance Level: Moderate assistance;Requires x 2 assistance Balance Sitting Balance: Moderate assistance Standing Balance: Maximum assistance Transfers Surface: To bed;From bed Additional Factors: Set-up;Verbal cues;Increased time to complete Device: (2 person HH assist) Sit to Stand Assistance Level: Moderate assistance;Maximum assistance;Requires x 2 assistance Skilled Clinical Factors: Pt w/ difficulty throughout STS transfers this date requiring skilled 2 person assist to maintain safety throughout. Pt w/ forward flexed trunk upon standing requiring max verbal cueing for activation of hip extensors w/ poor return demo. Heavy reliance on HH assist to for UE support throughout. Stand to Sit Assistance Level: Moderate assistance;Requires x 2 assistance Skilled Clinical Factors: Poor eccentric quad control requiring assist to to control descent throughout. Environmental Mobility Ambulation Surface: Level surface Device: (HH assist x 2) Distance: 3 steps laterally along EOB Activity Comments: steps at EOB for better repositioning upon return to bed Additional Factors: Set-up;Verbal cues;Hand placement cues;Increased time to complete Assistance Level: Maximum assistance;Requires x 2 assistance Gait Deviations: Slow wood;Unsteady gait;Wide base of support PT Exercises Exercise Treatment: LAQ, seated marches, static sitting balance, seated weight shifting - pt able to participate in minimal ther ex w/ visual cueing for activity; quickly losing focus & reporting fatigue, requesting to return supine ASSESSMENT/PROGRESS TOWARDS GOALS Assessment Assessment: Pt tolerated session fair. Pt continues to require skilled 2 person assist to maintain safety throughout bed mobility & transfers. Pt able to actively participate in minimal ther ex this date d/t increased fatigue. PT will continue to follow to address mobility deficits and assist w/ prevention of sedentary complications throughout admission. Activity Tolerance: Patient limited by fatigue;Treatment limited secondary to decreased cognition Discharge Recommendations: Patient would benefit from continued therapy after discharge Goals Patient Goals Patient Goals : Did not verbalize goals Short Term Goals Time Frame for Short Term Goals: 12 visits Short Term Goal 1: Pt to demonstrate bed mobility independently Short Term Goal 2: Pt to perform bed>chair transfers ModA Short Term Goal 3: Pt to require Ruma for regular pressure relief techniques in order to maintain skin integrity and prevent pressure injuries Short Term Goal 4: Pt to actively participate in at least 30 minutes of physical therapy for ther act & ther ex PLAN OF CARE/SAFETY Physical Therapy Plan General Plan: 5-7 times per week Current Treatment Recommendations: Strengthening;ROM;Balance training;Functional mobility training;Transfer training;Neuromuscular re-education;Home exercise program;Endurance training;Safety education & training;Patient/Caregiver education & training;Equipment evaluation, education, & procurement;Therapeutic activities;Positioning Safety Devices Type of Devices: Bed alarm in place;Call light within reach;Left in bed;Gait belt;Nurse notified;Sitter present Restraints Restraints Initially in Place: No Therapy Time Individual Concurrent Group Co-treatment Time In 1041 Time Out 1052 Minutes 11 Co-treatment with OT warranted secondary to decreased safety and independence requiring 2 skilled therapy professionals to address individual discipline's goals. PT addressing pre gait trunk strengthening, transfer training, and postural control in sitting. Shruthi Tovar, PT, 04/26/23 at 12:33 PM Images from the original note were not included. [facility] Office: [phone] Braydon Isbell DO, Eliazar Zuñiga DO, Carmen Kern DO, Bolivar Valdovinos DO, Evelyn Mitchell MD, Rita Pope MD, Tammy Cox MD, Hannah Mata MD, Dimas Fuentes MD, Vasyl Stanley MD, Reva Galindo MD, Mark Coleman DO, Rochelle Almanza MD, Aron Serna MD, Irwin Isbell DO, Livia Andino MD, Aman Hester DO, Kiarra Plasencia MD, Abby Pino MD, Kerrie Mccoy MD, Kennedi Spicer MD, Houston Frye MD, Elder Scott MD, Christofer Spencer MD, Erinn Nunez MD, Raeann Rodriguez MD, Kelly Owusu MD, Yana Munoz DO, Paresh Baker DO, Shwetha Qureshi MD, Domenico Rae MD, Dorota Escobar, ORTHOTIC ASSISTANT, Leonie Murillo, ORTHOTIC ASSISTANT, Beau Mccoy, ORTHOTIC ASSISTANT, Melany Cormier, JOLIE, Simran Villa, ORTHOTIC ASSISTANT, Maureen Williamson, ORTHOTIC ASSISTANT, Gloria Faust, ORTHOTIC ASSISTANT, Toshia Cho, ORTHOTIC ASSISTANT, Hattie Taylor, ORTHOTIC ASSISTANT, Ellen Loja, PAOlgaC, Karey Carrillo, PAOlgaC, Zaria Flores, ORTHOTIC ASSISTANT, Shani Patrick, ORTHOTIC ASSISTANT, Reva Vaughan, ORTHOTIC ASSISTANT, Corinne Stanton, CLINICAL THERAPIST, Manda Feldman, ORTHOTIC ASSISTANT, Carleen Agarwal, ORTHOTIC ASSISTANT, Sobeida Thornton, ORTHOTIC ASSISTANT [facility] IN-PATIENT SERVICE [facility] Progress Note 04/26/2023 10:03 AM Name: Amol Taylor Acct: [id number] Room: [address] [place] [address] Day: 2 Admit Date: 04/24/2023 10:56 PM PCP: Carson Matamoros MD Code Status: Full Code Subjective: C/C: sbo Interval History Status: not changed. Awake, alert Unable to give history Pulls at ng sometimes Sitter at bedside Had a seizure last night and given ativan Brief History: Per my partner: This is a 68-year-old male with history of MRDD and prior bowel obstruction who presents as a transfer from [facility] with recurrent bowel obstruction. Apparently was recently treated and released from [facility] with similar complaints and now returns with increasing abdominal distention and pain. Patient is currently seen in his room and denies any complaints of abdominal pain, nausea or vomiting, fevers or chills or other acute complaints. He is a poor historian but does report his bowels been moving. Review of Systems: unobtainable Medications: Allergies: Allergies Allergen Reactions Penicillins Hives, Shortness Of Breath and Swelling Clindamycin Rash Current Meds: Scheduled Meds: potassium chloride 10 mEq IntraVENous Q1H levETIRAcetam 1,500 mg IntraVENous Daily levETIRAcetam 2,000 mg IntraVENous Nightly sodium chloride flush 5-40 mL IntraVENous 2 times per day enoxaparin 40 mg SubCUTAneous Daily Continuous Infusions: sodium chloride 5 mL/hr at 04/26/23 0747 sodium chloride 50 mL/hr at 04/26/23 0440 PRN Meds: LORazepam, sodium chloride flush, sodium chloride, potassium chloride OR potassium alternative oral replacement OR potassium chloride, magnesium sulfate, ondansetron OR ondansetron, acetaminophen OR acetaminophen, prochlorperazine Data: Past Medical History: has a past medical history of Arthritis, BPH (benign prostatic hyperplasia), Dysphagia, GERD (gastroesophageal reflux disease), Hearing loss, HLD (hyperlipidemia), Insomnia, MR (mental retardation), Periorbital cellulitis, SBO (small bowel obstruction) (HCC), Seizures (HCC), Ventral hernia, and Vitamin D deficiency. Social History: reports that he has never smoked. He does not have any smokeless tobacco history on file. He reports that he does not drink alcohol and does not use drugs. Family History: Family History Problem Relation Age of Onset High Blood Pressure Mother Thyroid Cancer Mother Other Mother Myeloma Heart Disease Mother 2 Stents Arthritis Mother 2 Back surgeries Lung Cancer Father Heart Disease Brother Defibrilator Heart Attack Maternal Grandfather Diabetes Paternal Grandmother Vitals: BP 135/82 Pulse 95 Temp 98.2 F (36.8 C) (Axillary) Resp 28 Ht 1.778 m (5' 10 ) Wt 77.2 kg (170 lb 1.6 oz) SpO2 94% BMI 24.41 kg/m Temp (24hrs), Av.2 F (36.8 C), Min:98.1 F (36.7 C), Max:98.6 F (37 C) No results for input(s): POCGLU in the last 72 hours. I/O (24Hr): Intake/Output Summary (Last 24 hours) at 04/26/2023 1003 Last data filed at 04/26/2023 0354 Gross per 24 hour Intake 611.29 ml Output 1830 ml Net -1218.71 ml Labs: Hematology: Recent Labs 04/25/23 1157 04/26/23 0518 WBC 6.5 8.1 RBC 3.11* 3.29* HGB 10.2* 10.9* HCT 32.0* 33.5* MCV 102.9 101.8 MCH 32.8 33.1 MCHC 31.9 32.5 RDW 13.2 13.1 PLT 283 267 MPV 8.9 8.8 Chemistry: Recent Labs 04/25/23 1059 04/25/23 1157 04/26/23 0518 NA -- 142 147* K -- 3.7 3.6* CL -- 105 106 CO2 -- 28 28 GLUCOSE -- 83 83 BUN 24* 23 23 CREATININE 0.7 0.8 0.8 ANIONGAP -- 9 13 LABGLOM >60 >60 >60 CALCIUM -- 9.2 9.6 No results for input(s): PROT , LABALBU , LABA1C , M2SFUIQ , O5NWYQQ , FT4 , TSH , AST , ALT , LDH , GGT , ALKPHOS , LABGGT , BILITOT , BILIDIR , AMMONIA , AMYLASE , LIPASE , LACTATE , CHOL , HDL , LDLCHOLESTEROL , CHOLHDLRATIO , TRIG , VLDL , TQQ46QP , PHENYTOIN , PHENYF , URICACID , POCGLU in the last 72 hours. ABG:No results found for: POCPH , PHART , PH , POCPCO2 , FYJ5PXZ , PCO2 , POCPO2 , PO2ART , PO2 , POCHCO3 , AYN7JOL , HCO3 , NBEA , PBEA , BEART , BE , THGBART , THB , GMW1YJC , YIRZ3DQU , N0NFHXJT , O2SAT , FIO2 Lab Results Component Value Date/Time SPECIAL NOT REPORTED 12/05/2018 06:15 AM Lab Results Component Value Date/Time CULTURE NO GROWTH 5 DAYS 02/11/2023 10:25 PM Radiology: XR CHEST PORTABLE Result Date: 04/25/2023 Enteric tube in satisfactory position. No acute process in the lungs. XR ABDOMEN FOR NG/OG/NE TUBE PLACEMENT Result Date: 04/25/2023 1. NG tube extends into the upper stomach. 2. Moderate amount of gas and stool scattered in the proximal and mid colon. Moderate amount of gas can be identified in some loops of small bowel mainly in the left side of abdomen. Physical Examination: General appearance: alert, cooperative and no distress Mental Status: oriented to person, and normal affect Lungs: clear to auscultation bilaterally, normal effort Heart: regular rate and rhythm, no murmur Abdomen: soft, nontender, nondistended, no masses, hepatomegaly, splenomegaly Extremities: no edema, redness, tenderness in the calves Skin: no gross lesions, rashes, induration Assessment: Hospital Problems Last Modified POA * (Principal) Small bowel obstruction (HCC) 04/25/2023 Yes Seizures (HCC) Chronic (Chronic) 04/25/2023 Yes MR (mental retardation), severe (Chronic) 04/25/2023 Yes Overview Signed 08/12/2018 8:51 AM by Ambulatory, Admin Replacing deprecated diagnoses Epilepsy (HCC) 04/25/2023 Yes AFTAB (obstructive sleep apnea) 04/25/2023 Yes Plan: Ask med rec pharmacist to see: many home meds are listed as historical and unclear if active meds or not If vimpat current, will need to change it to iv Ativan prn for breakthrough seizures Ng to liws Supportive care Replace edmund Valdovinos DO 04/26/2023 10:03 AM General Surgery: Daily Progress Note PATIENT NAME: Amol Taylor TODAY'S DATE: 04/26/2023, 5:41 AM CC: Not passing gas SUBJECTIVE: Pt seen and examined at bedside. Pt had seizure overnight and required Ativan. Pt moved to progressive care. On exam this morning he answers questions a bit slower than yesterday. NG tube in place with 500 mL out overnight, 1.3 L last 24 hours. Pt was passing gas yesterday but denies passing gas overnight. No bowel movements. OBJECTIVE: VITALS: BP 122/74 Pulse (!) 115 Temp 98.1 F (36.7 C) (Axillary) Resp 20 Ht 1.778 m (5' 10 ) Wt 77.2 kg (170 lb 1.6 oz) SpO2 97% BMI 24.41 kg/m INTAKE/OUTPUT: Intake/Output Summary (Last 24 hours) at 04/26/2023 0541 Last data filed at 04/26/2023 0354 Gross per 24 hour Intake 963.04 ml Output 2280 ml Net -1316.96 ml PHYSICAL EXAM: General Appearance: agitated, will answer questions but slower than yesterday HEENT: Normocephalic, atraumatic, mucus membranes moist NG tube in place Heart: Heart sounds are normal. Regular rate and rhythm without murmur, gallop or rub. Lungs: Normal expansion. Clear to auscultation. No rales, rhonchi, or wheezing. Abdomen: Soft, non-distended, non-tender Extremities: No cyanosis, pitting edema, rashes noted. Skin: Skin color, texture, turgor normal. No rashes or lesions. Data: CBC with Differential: Lab Results Component Value Date/Time WBC 8.1 04/26/2023 05:18 AM RBC 3.29 04/26/2023 05:18 AM RBC 3.43 10/31/2010 11:48 AM HGB 10.9 04/26/2023 05:18 AM HCT 33.5 04/26/2023 05:18 AM PLT 267 04/26/2023 05:18 AM PLT 206 10/31/2010 11:48 AM MCV 101.8 04/26/2023 05:18 AM MCH 33.1 04/26/2023 05:18 AM MCHC 32.5 04/26/2023 05:18 AM RDW 13.1 04/26/2023 05:18 AM LYMPHOPCT 16 04/26/2023 05:18 AM MONOPCT 7 04/26/2023 05:18 AM BASOPCT 1 04/26/2023 05:18 AM MONOSABS 0.55 04/26/2023 05:18 AM LYMPHSABS 1.26 04/26/2023 05:18 AM EOSABS 0.09 04/26/2023 05:18 AM BASOSABS 0.05 04/26/2023 05:18 AM DIFFTYPE NOT REPORTED 04/13/2021 07:30 AM BMP: Lab Results Component Value Date/Time NA 142 04/25/2023 11:57 AM K 3.7 04/25/2023 11:57 AM CL 105 04/25/2023 11:57 AM CO2 28 04/25/2023 11:57 AM BUN 23 04/25/2023 11:57 AM LABALBU 3.7 02/10/2023 05:11 AM CREATININE 0.8 04/25/2023 11:57 AM CALCIUM 9.2 04/25/2023 11:57 AM GFRAA >60 09/10/2021 10:31 PM LABGLOM >60 04/25/2023 11:57 AM GLUCOSE 83 04/25/2023 11:57 AM GLUCOSE 92 10/31/2010 11:48 AM Radiology Review: KUB pending ASSESSMENT: Active Hospital Problems Diagnosis Date Noted AFTAB (obstructive sleep apnea) [G47.33] 10/11/2016 Epilepsy (HCC) [G40.909] 12/14/2015 MR (mental retardation), severe [F72] 10/20/2013 Small bowel obstruction (HCC) [K56.609] 10/18/2013 Seizures ([facility]) Chronic [R56.9] 10/18/2013 68 y.o. male with small bowel obstruction vs ileus Plan: Continue NG tube to LIWS Soap suds enema this morning F/u am KUB and labs- keep electrolytes within normal limits Continue NPO diet Hold all anti-diarrheals Rest of care per medical team Attending Physician Statement I have discussed the case, including pertinent history and exam findings with the resident. I agree with the assessment, plan and orders as documented by the resident. RN called patients legal guardian Susan and informed her about patients seizure, condition and change of unit. Legal guardian said there is a magnet under his left armpit (magnet in a red bag) if it was swiped. RN stated she was told in report he had a magnet, but there was no other information given, nor information about it in his chart. She said its a watch battery size and swipe it in any direction under his left underarm and it sends an electrical impulse to his brain to help seizure Susan stated that post ativan he is sleepy and pretty lethargic. Susan stated he has a magnet so he can't be around MRI. Patient is usually mechanical soft and thickened liquids. All questions and concerns answered by RN Bedside RN and another RN heard grunting noises, both RN went down the pritchard to assess where it was coming from. Patient was actively seizing. Seizure started around 4, a rapid response was called at 0316. BS was taken and was 96. Set of VS were taken all within normal range except HR was showing tachycardia with HR ranging from 110-115 once hooked up to monitor. Simran SAFETY PATROL OFFICER at bedside ordered 1 2mg dose of ativan and administered at 0322, patient continued to seize and become unresponsive. Another dose of ativan ordered, 4mg, administered at 0330. Patient continued to be unresponsive. About 344 patient had a small break through by saying what a few times when bedside RN was calling name Neuro consult ordered. Patient being transferred to PCU and progressive status. Transitions of Care Pharmacy Service Medication Review The patient's list of current home medications has been reviewed. Source(s) of information: med list from long term ([facility]) PROVIDER ACTION REQUESTED Medications that need to be addressed by a physician/nurse practitioner: Medication Action Requested Home med list is ready for physician review Please feel free to call me with any questions about this encounter. Thank you. Mary Lynn [facility] Transitions of Care Pharmacy Service Medications Prior to Admission: hydrOXYzine HCl (ATARAX) 25 MG tablet, Take 1 tablet by mouth 2 times daily as needed for Itching loperamide (IMODIUM) 2 MG capsule, Take 1 capsule by mouth 2 times daily as needed for Diarrhea LORazepam (ATIVAN) 0.5 MG tablet, Take 1 tablet by mouth every 8 hours as needed (seizure activity). melatonin 3 MG TABS tablet, Take 1 tablet by mouth nightly as needed albuterol sulfate HFA (PROAIR HFA) 108 (90 Base) MCG/ACT inhaler, Inhale 2 puffs into the lungs every 4 hours as needed for Wheezing benzonatate (TESSALON) 100 MG capsule, Take 1 capsule by mouth 3 times daily as needed for Cough NONFORMULARY, Take 2 tablets by mouth daily Inulin-chromium picolinate 2gm-100mcg chewable tab magnesium oxide (MAG-OX) 400 (240 Mg) MG tablet, Take 1 tablet by mouth daily meclizine (ANTIVERT) 25 MG tablet, Take 1 tablet by mouth daily polyethyl glycol-propyl glycol 0.4-0.3 % (SYSTANE) 0.4-0.3 % ophthalmic solution, Place 1 drop into both eyes nightly Systane nighttime ointment acetaminophen (TYLENOL) 500 MG tablet, Take 1 tablet by mouth every 6 hours as needed for Pain diazePAM (DIASTAT) 20 MG GEL, Place 20 mg rectally as needed (seizure activity>15 minutes). ondansetron (ZOFRAN-ODT) 4 MG disintegrating tablet, Take 1 tablet by mouth every 6 hours as needed for Nausea or Vomiting levETIRAcetam (KEPPRA) 750 MG tablet, Take 2 tablets by mouth daily levETIRAcetam (KEPPRA) 1000 MG tablet, Take 2 tablets by mouth nightly pantoprazole (PROTONIX) 40 MG tablet, Take 1 tablet by mouth every morning (before breakfast) polyethylene glycol (GLYCOLAX) 17 g packet, Take 17 g by mouth daily lamoTRIgine (LAMICTAL) 200 MG tablet, Take 2 tablets by mouth every morning lamoTRIgine (LAMICTAL) 200 MG tablet, Take 3 tablets by mouth at bedtime primidone (MYSOLINE) 250 MG tablet, Take 1.5 tablets by mouth nightly calcium carbonate (TUMS) 500 MG chewable tablet, Take 1 tablet by mouth 2 times daily carbamide peroxide (DEBROX) 6.5 % otic solution, Place 4 drops into both ears every 30 days Apply cotton swabs to ears, after instilling drops. Then irrigate with room temperature water the next morning oxybutynin (DITROPAN-XL) 10 MG extended release tablet, Take 1 tablet by mouth daily hydrocortisone 2.5 % cream, Apply topically 2 times daily Apply topically to areas on the face 2 times daily SUNDAY THRU SUNDAY ONLY. Take weekends off, repeat as needed for flares. latanoprost (XALATAN) 0.005 % ophthalmic solution, Place 1 drop into both eyes nightly senna (SENOKOT) 8.6 MG tablet, Take 1 tablet by mouth 2 times daily Vitamin D (CHOLECALCIFEROL) 25 MCG (1000 UT) TABS tablet, Take 1 tablet by mouth daily primidone (MYSOLINE) 250 MG tablet, Take 1 tablet by mouth every morning lacosamide (VIMPAT) 150 MG TABS tablet, Take 1 tablet by mouth 2 times daily. finasteride (PROSCAR) 5 MG tablet, Take 1 tablet by mouth nightly tamsulosin (FLOMAX) 0.4 MG capsule, Take 1 capsule by mouth 2 times daily Occupational Therapy Facility/Department: [facility] Occupational Therapy Initial Assessment Name: Amol Taylor : 1955 Date of Service: 04/25/2023 MILLER Fortune reports patient is medically stable for therapy treatment this date. Chart reviewed prior to treatment and patient is agreeable for therapy. All lines intact and patient positioned comfortably at end of treatment. All patient needs addressed prior to ending therapy session. Discharge Recommendations: OT Equipment Recommendations Equipment Needed: Yes (CTA) Patient Diagnosis(es): There were no encounter diagnoses. Past Medical History: has a past medical history of Arthritis, BPH (benign prostatic hyperplasia), Dysphagia, GERD (gastroesophageal reflux disease), Hearing loss, HLD (hyperlipidemia), Insomnia, MR (mental retardation), Periorbital cellulitis, SBO (small bowel obstruction) (HCC), Seizures (HCC), Ventral hernia, and Vitamin D deficiency. Past Surgical History: has a past surgical history that includes Abdomen surgery (2012, 2013); laparoscopy (10/19/13); laparotomy (10/19/13); cast application (Left); Hydrocele surgery (10/2015); Vagus nerve stimulator insertion; and Vagus nerve stimulator insertion (12/14/2015). PER H&P: Amol Taylor is a 68 y.o. Non- / non male who presents with No chief complaint on file. and is admitted to the hospital for the management of Small bowel obstruction (HCC). Patient has MRDD and resides in a long term. He has a history of bowel obstructions, and the staff noticed signs of bowel obstruction and EMS was called. EMS took the patient to [facility]. Patient was recently discharged from [facility] with bowel obstruction, however family did not want patient to return to [facility] and arrangements were made for patient to be transferred to [facility] for further management of small bowel obstruction that was seen on CT abdomen pelvis on Apr 23. General surgery was consulted. There were also findings consistent with cystitis. Creat was 1.58 and he was noted to be tachycardic while ar [facility]. He was transferred to [facility] on Apr 24 when a bed became available. Assessment Performance deficits / Impairments: Decreased functional mobility ;Decreased ADL status;Decreased safe awareness;Decreased cognition;Decreased balance;Decreased posture;Decreased high-level IADLs;Decreased endurance;Decreased coordination;Decreased strength;Decreased sensation;Decreased fine motor control Assessment: Pt would benefit from continued skilled OT services to increase I and safety during functional tasks to return home at prior level of function as able. Prognosis: Fair Decision Making: Medium Complexity Activity Tolerance Activity Tolerance: Treatment limited secondary to decreased cognition Activity Tolerance Comments: Pt cooperative throughout session, limited by cognitive deficits and decreased activity tolerance. Plan Occupational Therapy Plan Times Per Week: 4-5x/wk 1x/day as roxanne Current Treatment Recommendations: Strengthening, Balance training, Functional mobility training, Endurance training, Safety education & training, Equipment evaluation, education, & procurement, Self-Care / ADL, Patient/Caregiver education & training, Cognitive/Perceptual training Restrictions Restrictions/Precautions Restrictions/Precautions: General Precautions, Fall Risk, Seizure Required Braces or Orthoses?: No Position Activity Restriction Other position/activity restrictions: Up w/ assist, NG tube to suction, LUE IV Subjective General Chart Reviewed: Yes Patient assessed for rehabilitation services?: Yes Family / Caregiver Present: No Subjective Subjective: Pt resting in bed, pleasant and agreeable to OT eval. Pt talks very quickly/garbled, unintelligible at times. Social/Functional History Social/Functional History Additional Comments: Unable to obtain accurate social/functional history this date d/t pt's decreased cognition & pt's speech. Per chart and conversation w/ RN, pt is from long term. Pt able to report that he uses WC at baseline and most likely stand-pivots to transfer in/out of chair. Objective Observation/Palpation Posture: Fair Observation: Pt wearing bike helmet upon arrival and throughout session. Safety Devices Type of Devices: Bed alarm in place;Call light within reach;Left in bed;Gait belt;Nurse notified Restraints Restraints Initially in Place: No Balance Sitting: (Pt with fluctuating levels of assistance seated on EOB CGA to Mod A. Max verbal cues for remain seated and support self.) Standing: (Mod A x2 with B handheld assistance.) AROM: Within functional limits Strength: Generally decreased, functional (Unable to formally assess strength d/t poor direction follow, however appeared grossly EFL) Coordination: Generally decreased, functional (decreased speed/accuracy during B finger to thumb opposition) Tone: Normal ADL Feeding: NPO Grooming: Setup;Moderate assistance;Maximum assistance UE Bathing: Setup;Maximum assistance;Dependent/Total LE Bathing: Setup;Dependent/Total UE Dressing: Setup;Maximum assistance LE Dressing: Dependent/Total;Setup Toileting: Dependent/Total (Upon writers arrival pt attempting to use urinal while supine in bed. Urinal not in proper position requiring Dep assistance for proper placement and to hold urinal.) Functional Mobility: Moderate assistance (x2) Functional Mobility Skilled Clinical Factors: Pt completed steps in place at EOB with Mod A x2 with B handheld assistance. Pt required MAX verbal cues for initiation, sequencing, slowing down, weight shifting, progression. Pt impulsive throughout session. Activity Tolerance Activity Tolerance: Treatment limited secondary to decreased cognition;Patient limited by endurance Bed mobility Rolling to Left: Stand by assistance Rolling to Right: Stand by assistance Supine to Sit: Moderate assistance Sit to Supine: Stand by assistance Scooting: Stand by assistance Bed Mobility Comments: Pt completed bed mobility with mild diffiuclites this date. Pt impulsive at times requiring Max verbal cues for safety, slowing down, progression and sequencing. Pt denied any dizziness/lightheadedness once seated on EOB. Assist required for all line mgmt as pt has little to no awareness of his lines. Transfers Sit to stand: Moderate assistance;2 Person assistance (B hand held assist) Stand to sit: Moderate assistance;2 Person assistance Transfer Comments: Pts completed STS transfers with difficulties this date. Pt used B hand held assistance required MAX verbal cues for initiation, sequencing, weight shifting, upright posture, controlled stand to sit and slowing down all to increase safety. Pt has very poor safety awareness and is impulsive, would recommend non therapy staff use Jackie Bone. Hearing Hearing: Within functional limits Cognition Overall Cognitive Status: Exceptions Arousal/Alertness: Appropriate responses to stimuli;Inconsistent responses to stimuli Following Commands: Follows one step commands with repetition;Follows one step commands with increased time Attention Span: Attends with cues to redirect;Difficulty attending to directions Problem Solving: Decreased awareness of errors;Assistance required to identify errors made;Assistance required to correct errors made Initiation: Requires cues for some Sequencing: Requires cues for some Orientation Orientation Level: Oriented to person Education Given To: Patient Education Provided: Role of Therapy;Transfer Training;Equipment;Plan of Care;Energy Conservation;Fall Prevention Strategies;ADL Adaptive Strategies Education Provided Comments: safety in function, fall prevention/call light use, OT POC, role of OT in acute care, benefits of being OOB, recommendations for discharge/AE Education Method: Verbal Barriers to Learning: Cognition Education Outcome: Continued education needed;Unable to demonstrate understanding;Unable to verbalize [facility] - ADL [facility] Daily Activity - Inpatient How much help is needed for putting on and taking off regular lower body clothing?: Total How much help is needed for bathing (which includes washing, rinsing, drying)?: A Lot How much help is needed for toileting (which includes using toilet, bedpan, or urinal)?: Total How much help is needed for putting on and taking off regular upper body clothing?: A Lot How much help is needed for taking care of personal grooming?: A Little How much help for eating meals?: A Little [facility] T-Scale Score : 30.6 ADL Inpatient [facility] 0-100% Score: 66.57 ADL Inpatient [facility] G-Code Modifier : CL Tinneti Score Goals Short Term Goals Time Frame for Short Term Goals: By discharge, pt to demo Short Term Goal 1: ADL transfers and functional mobility to Min A with use of AD and proper construction safety consultant. Short Term Goal 2: grooming task to Min A with use of AD/AE and verbal cues as needed. Short Term Goal 3: I with simple B UE HEP to maintain strength for functional tasks with use of handouts as needed. Short Term Goal 4: increased standing roxanne > 5 min with Min A using AD as needed to reduce risk of falls during functional tasks. Short Term Goal 5: increased sitting roxanne > 15 min with CGA to assist with completion of ADL routine. Rn Invasive Goals Rn Invasive Goal 1: Pt/caregiver to be I with fall prevention edu, EC/WS tech, recommendations for discharge/AE, pressure relief/skin integrity edu with use of handouts as needed. Patient Goals Patient goals : Did not state! Therapy Time Individual Concurrent Group Co-treatment Time In 09 Time Out 0934 Minutes 25 Tx time : 10 min Co-treatment with PT warranted secondary to decreased safety and independence requiring 2 skilled therapy professionals to address individual discipline's goals. Beena ELAM OT Physical Therapy Facility/Department: [facility] Physical Therapy Initial Assessment Name: Amol Taylor : 1955 Date of Service: 04/25/2023 RN Devika reports patient is medically stable for therapy treatment this date. Chart reviewed prior to treatment and patient is agreeable for therapy. All lines intact and patient positioned comfortably at end of treatment. All patient needs addressed prior to ending therapy session. Discharge Recommendations: Patient would benefit from continued therapy after discharge Due to recent hospitalization and medical condition, pt would benefit from additional intermittent skilled therapy at time of discharge. Please refer to the AM-PAC score for current functional status. Per H&P: Amol Taylor is a 68 y.o. Non- / non male who presents with No chief complaint on file. and is admitted to the hospital for the management of Small bowel obstruction (HCC). Patient has MRDD and resides in a long term. He has a history of bowel obstructions, and the staff noticed signs of bowel obstruction and EMS was called. EMS took the patient to [facility]. Patient was recently discharged from [facility] with bowel obstruction, however family did not want patient to return to [facility] and arrangements were made for patient to be transferred to [facility] for further management of small bowel obstruction that was seen on CT abdomen pelvis on Apr 23. General surgery was consulted. There were also findings consistent with cystitis. Creat was 1.58 and he was noted to be tachycardic while ar [facility]. He was transferred to [facility] on Apr 24 when a bed became available. Patient Diagnosis(es): There were no encounter diagnoses. Past Medical History: has a past medical history of Arthritis, BPH (benign prostatic hyperplasia), Dysphagia, GERD (gastroesophageal reflux disease), Hearing loss, HLD (hyperlipidemia), Insomnia, MR (mental retardation), Periorbital cellulitis, SBO (small bowel obstruction) (HCC), Seizures (HCC), Ventral hernia, and Vitamin D deficiency. Past Surgical History: has a past surgical history that includes Abdomen surgery (2012, 2013); laparoscopy (10/19/13); laparotomy (10/19/13); cast application (Left); Hydrocele surgery (10/2015); Vagus nerve stimulator insertion; and Vagus nerve stimulator insertion (12/14/2015). Assessment Body Structures, Functions, Activity Limitations Requiring Skilled Therapeutic Intervention: Decreased functional mobility ;Decreased ADL status;Decreased ROM;Decreased strength;Decreased safe awareness;Decreased cognition;Decreased endurance;Decreased balance;Decreased coordination;Decreased fine motor control;Decreased high-level IADLs;Decreased posture Assessment: Pt tolerated PT eval fair. Pt currently requires skilled 2 person assist for safe transfers. Difficult to fully determine pt's baseline mobility status and assist provided at baseline however pt currently presenting w/ deficits in balance, ROM, strength, and endurance. Pt would benefit from continued acute PT to address deficits and prevent sedentary complications. Therapy Prognosis: Good;Fair Decision Making: Medium Complexity Requires PT Follow-Up: Yes Activity Tolerance Activity Tolerance: Treatment limited secondary to decreased cognition;Patient limited by endurance Plan Physical Therapy Plan General Plan: 5-7 times per week Current Treatment Recommendations: Strengthening, ROM, Balance training, Functional mobility training, Transfer training, Neuromuscular re-education, Home exercise program, Endurance training, Safety education & training, Patient/Caregiver education & training, Equipment evaluation, education, & procurement, Therapeutic activities, Positioning Safety Devices Type of Devices: Bed alarm in place, Call light within reach, Left in bed, Gait belt, Nurse notified Restraints Restraints Initially in Place: No Restrictions Restrictions/Precautions Restrictions/Precautions: General Precautions, Fall Risk, Seizure Required Braces or Orthoses?: No Position Activity Restriction Other position/activity restrictions: Up w/ assist, NG tube to suction, LUE IV Subjective General Patient assessed for rehabilitation services?: Yes Response To Previous Treatment: Not applicable Family / Caregiver Present: No Follows Commands: Within Functional Limits General Comment Comments: RN and pt agreeable to therapy. Pt supine in bed upon arrival. Pt very talkative however difficult to understand most times. Subjective Subjective: Pt reporting needing to use urinal upon arrival, otherwise does not report how he is feeling to staff. Social/Functional History Social/Functional History Additional Comments: Unable to obtain accurate social/functional history this date d/t pt's decreased cognition & pt's speech. Per chart and conversation w/ RN, pt is from long term. Pt able to report that he uses WC at baseline and most likely stand-pivots to transfer in/out of chair. Vision/Hearing Hearing Hearing: Within functional limits Cognition Orientation Orientation Level: Oriented to person Cognition Overall Cognitive Status: Exceptions Arousal/Alertness: Appropriate responses to stimuli;Inconsistent responses to stimuli Following Commands: Follows one step commands with repetition;Follows one step commands with increased time Attention Span: Attends with cues to redirect;Difficulty attending to directions Problem Solving: Decreased awareness of errors;Assistance required to identify errors made;Assistance required to correct errors made Initiation: Requires cues for some Sequencing: Requires cues for some Objective Observation/Palpation Posture: Fair Observation: Pt wearing bike helmet upon arrival and throughout session. AROM RLE (degrees) RLE AROM: WFL RLE General AROM: ankle DF/PF generally limited AROM LLE (degrees) LLE AROM : WFL LLE General AROM: ankle DF/PF generally limited AROM RUE (degrees) RUE AROM : WFL AROM LUE (degrees) LUE AROM : WFL Strength RLE Strength RLE: WFL Comment: Difficult to formally assess MMT this date; Appears grossly WFL Strength LLE Strength LLE: WFL Comment: Difficult to formally assess MMT this date; Appears grossly WFL Strength RUE Strength RUE: WFL Strength LUE Strength LUE: WFL Bed mobility Rolling to Left: Stand by assistance Rolling to Right: Stand by assistance Supine to Sit: Moderate assistance (assist for progression of trunk) Sit to Supine: Stand by assistance Scooting: Stand by assistance Bed Mobility Comments: Pt w/ mild difficulty throughout bed mobility this date requiring cueing for initiation, progression, and sequencing throughout. Pt denying any dizziness/lightheadedness throughout position changes. CGA-Ruma required to maintain static sitting balance throughout. Assist required for safe line mgmt throughout. Transfers Sit to Stand: Moderate Assistance;2 Person Assistance Stand to Sit: Moderate Assistance;2 Person Assistance Comment: Pt demonstrating poor steadiness throughout STS transfers this date requiring multiple attempts to get upright on initial transfer attempt. HH assist provided throughout as pt able to tell staff he doesn't use RW or other AD. Pt w/ heavy posterior lean upon standing requiring mod-max verbal cueing for upright posture w/ fair return demo. Poor eccentric quad control throughout stand>sit transfers requiring assist to control descent throughout. Ambulation Comments: Not appropriate; Pt non-ambulatory at baseline. Balance Posture: Fair Sitting - Static: Fair;+ Sitting - Dynamic: Fair;- Standing - Static: Poor;+ Standing - Dynamic: Poor Single Leg Stance R Le Single Leg Stance L Le Comments: Standing balance assessed w/ HH assist Exercise Treatment: ankle pumps, standing steps in place at bedside, static sitting balance, STS x 2 AM-PAC - Mobility AM-PAC Basic Mobility - Inpatient AM-PAC Inpatient Mobility Raw Score : 10 AM-PAC Inpatient T-Scale Score : 32.29 Mobility Inpatient CMS 0-100% Score: 76.75 Mobility Inpatient CMS G-Code Modifier : CL Functional Outcome Measure- Single Leg Stance Test: 0 sec. (<5 sec.= fall risk) Goals Short Term Goals Time Frame for Short Term Goals: 12 visits Short Term Goal 1: Pt to demonstrate bed mobility independently Short Term Goal 2: Pt to perform bed>chair transfers ModA Short Term Goal 3: Pt to require Ruma for regular pressure relief techniques in order to maintain skin integrity and prevent pressure injuries Short Term Goal 4: Pt to actively participate in at least 30 minutes of physical therapy for ther act & ther ex Patient Goals Patient Goals : Did not verbalize goals Education Patient Education Education Given To: Patient Education Provided: Role of Therapy;Plan of Care Education Provided Comments: Pt educated on: purpose of acute PT eval, importance of continued mobility throughout admission, and PT POC. Pt w/ poor return demo. Education Method: Verbal Barriers to Learning: Cognition Education Outcome: Continued education needed Therapy Time Individual Concurrent Group Co-treatment Time In 918 Time Out 0945 Minutes 26 Treatment time: 10 minutes Co-treatment with OT warranted secondary to decreased safety and independence requiring 2 skilled therapy professionals to address individual discipline's goals. PT addressing trunk strengthening, weight shifting prior to transfers, transfer training, and postural control in sitting. Shruthi Tovar PT documented in this encounter [facility] 04-28-2023 Hospital course Narrative Images from the original note were not included. [facility] Office: [phone] Braydon Isbell DO, Eliazar Zuñiga DO, Carmen Kern DO, Bolivar Valdovinos DO, Evelyn Mitchell MD, Rita Pope MD, Tammy Cox MD, Hannah Mata MD, Dimas Fuentes MD, Vasyl Stanley MD, Reva Galindo MD, Mark Coleman DO, Rochelle Almanza MD, Aron Serna MD, Irwin Isbell DO, Liiva Andino MD, Aman Hester DO, Kiarra Plasencia MD, Abby Pino MD, Kerrie Mccoy MD, Kennedi Spicer MD, Houston Frye MD, Elder Scott MD, Christofer Spencer MD, Erinn Nunez MD, Raeann Rodriguez MD, Kelly Owusu MD, Yana Munoz DO, Paresh Baker DO, Shwetha Qureshi MD, Domenico Rae MD, Dorota Escobar, ORTHOTIC ASSISTANT, Leonie Murillo, ORTHOTIC ASSISTANT, Beau Mccoy, ORTHOTIC ASSISTANT, Melany Cormier, JOLIE, Simran Villa, ORTHOTIC ASSISTANT, Maureen Williamson, ORTHOTIC ASSISTANT, Gloria Faust, ORTHOTIC ASSISTANT, Toshia Cho, ORTHOTIC ASSISTANT, Hattie Taylor, ORTHOTIC ASSISTANT, Ellen Loja, PA-C, Karey Carrillo, PA-C, Zaria Flores, ORTHOTIC ASSISTANT, Shani Patrick, ORTHOTIC ASSISTANT, Reva Vaughan, ORTHOTIC ASSISTANT, Corinne Stanton, CLINICAL THERAPIST, Manda Feldman, ORTHOTIC ASSISTANT, Carleen Agarwal, ORTHOTIC ASSISTANT, Sobeida Thornton, ORTHOTIC ASSISTANT [facility] IN-PATIENT SERVICE [facility] Discharge Summary Patient ID: Amol Taylor : 1955 ACCOUNT: [id number] Patient's PCP: Carson Matamoros MD Admit Date: 04/24/2023 Discharge Date: 04/28/2023 Length of Stay: 4 Code Status: Full Code Admitting Physician: Bolivar Valdovinos DO Discharge Physician: Carmen Kern DO Active Discharge Diagnoses: Hospital Problem Lists: Principal Problem: Small bowel obstruction (HCC) Active Problems: Seizures (HCC) Chronic MR (mental retardation), severe Epilepsy (HCC) AFTAB (obstructive sleep apnea) Seizure-like activity (HCC) Resolved Problems: * No resolved hospital problems. * Admission Condition: fair Discharged Condition: stable Hospital Stay: Hospital Course: Amol Taylor is a 68 y.o. male who was admitted for the management of Small bowel obstruction (HCC) , presented to ER with Abdominal pain This is a 68-year-old male who is transferred to [facility] from an outside facility for complaint of abdominal pain and findings concerning for small bowel obstruction. Patient has had prior admissions for small bowel obstruction and ultimately presented here and had an NG tube placed. NG was maintained with low remittent wall suction with improvement in his clinical symptoms. He remained pain-free throughout his hospital stay and ultimately had return of bowel function. His diet was advanced and has been tolerated. He will be discharged today in stable condition on his usual home medications. He is advised to avoid antidiarrheal agents to avoid further episodes of constipation or bowel obstruction. Significant therapeutic interventions: As above Significant Diagnostic Studies: Labs / Micro: CBC: Lab Results Component Value Date/Time WBC 6.2 04/28/2023 05:00 AM RBC 3.24 04/28/2023 05:00 AM RBC 3.43 10/31/2010 11:48 AM HGB 10.7 04/28/2023 05:00 AM HCT 32.2 04/28/2023 05:00 AM MCV 99.4 04/28/2023 05:00 AM MCH 33.0 04/28/2023 05:00 AM MCHC 33.2 04/28/2023 05:00 AM RDW 12.9 04/28/2023 05:00 AM PLT 283 04/28/2023 05:00 AM PLT 206 10/31/2010 11:48 AM BMP: Lab Results Component Value Date/Time GLUCOSE 95 04/28/2023 05:00 AM GLUCOSE 92 10/31/2010 11:48 AM NA 147 04/28/2023 05:00 AM K 3.9 04/28/2023 05:00 AM CL 110 04/28/2023 05:00 AM CO2 27 04/28/2023 05:00 AM ANIONGAP 10 04/28/2023 05:00 AM BUN 22 04/28/2023 05:00 AM CREATININE 0.7 04/28/2023 05:00 AM BUNCRER 31 04/28/2023 05:00 AM CALCIUM 9.2 04/28/2023 05:00 AM LABGLOM >60 04/28/2023 05:00 AM GFRAA >60 09/10/2021 10:31 PM GFR 09/10/2021 10:31 PM GFR 09/10/2021 10:31 PM Radiology: XR ABDOMEN (KUB) (SINGLE AP VIEW) Result Date: 04/26/2023 Nonobstructive bowel gas pattern. Enteric tube remains in place. XR CHEST PORTABLE Result Date: 04/25/2023 Enteric tube in satisfactory position. No acute process in the lungs. XR ABDOMEN FOR NG/OG/NE TUBE PLACEMENT Result Date: 04/25/2023 1. NG tube extends into the upper stomach. 2. Moderate amount of gas and stool scattered in the proximal and mid colon. Moderate amount of gas can be identified in some loops of small bowel mainly in the left side of abdomen. Consultations: Consults: Final Specialist Recommendations/Findings: IP CONSULT TO GENERAL SURGERY IP CONSULT TO PHARMACY IP CONSULT TO NEUROLOGY The patient was seen and examined on day of discharge and this discharge summary is in conjunction with any daily progress note from day of discharge. Discharge plan: Disposition: Home Physician Follow Up: PCP 1 week, surgery as directed No follow-up provider specified. Requiring Further Evaluation/Follow Up POST HOSPITALIZATION/Incidental Findings: None Diet: regular diet low residue Activity: As tolerated Instructions to Patient: Take medications as prescribed Discharge Medications: Medication List CONTINUE taking these medications benzonatate 100 MG capsule Commonly known as: TESSALON calcium carbonate 500 MG chewable tablet Commonly known as: TUMS Debrox 6.5 % otic solution Generic drug: carbamide peroxide diazePAM 20 MG Gel Commonly known as: DIASTAT finasteride 5 MG tablet Commonly known as: [...] 1000 MG tablet Commonly known as: KEPPRA Take 2 tablets by mouth nightly * levETIRAcetam 750 MG tablet Commonly known as: KEPPRA Take 2 tablets by mouth daily LORazepam 0.5 MG tablet Commonly known as: ATIVAN magnesium oxide 400 (240 Mg) MG tablet Commonly known as: MAG-OX meclizine 25 MG tablet Commonly known as: ANTIVERT melatonin 3 MG Tabs tablet NONFORMULARY ondansetron 4 MG disintegrating tablet Commonly known as: ZOFRAN-ODT oxyBUTYnin 10 MG extended release tablet Commonly known as: DITROPAN-XL pantoprazole 40 MG tablet Commonly known as: PROTONIX Take 1 tablet by mouth every morning (before breakfast) polyethyl glycol-propyl glycol 0.4-0.3 % 0.4-0.3 % ophthalmic solution Commonly known as: SYSTANE polyethylene glycol 17 g packet Commonly known as: GLYCOLAX * primidone 250 MG tablet Commonly known as: MYSOLINE * primidone 250 MG tablet Commonly known as: MYSOLINE ProAir HFA 108 (90 Base) MCG/ACT inhaler Generic drug: albuterol sulfate HFA senna 8.6 MG tablet Commonly known as: SENOKOT tamsulosin 0.4 MG capsule Commonly known as: FLOMAX Vitamin D 25 MCG (1000 UT) Tabs tablet Commonly known as: CHOLECALCIFEROL * This list has 6 medication(s) that are the same as other medications prescribed for you. Read the directions carefully, and ask your doctor or other care provider to review them with you. STOP taking these medications acetaminophen 500 MG tablet Commonly known as: TYLENOL loperamide 2 MG capsule Commonly known as: IMODIUM No discharge procedures on file. Time Spent on discharge is 28 minutes in patient examination, evaluation, counseling as well as medication reconciliation, prescriptions for required medications, discharge plan and follow up. Electronically signed by Carmen Kern DO 04/28/2023 11:58 AM Thank you Carson Tony MD for the opportunity to be involved in this patient's care. documented in this encounter [facility] 04-28-2023 Hospital Discharge instructions Ray Johnson RN - 04/28/2023 11:58 AM EST Continuity of Care Form Patient Name: Amol Taylor : 1955 Admit date: 04/24/2023 Discharge date: 04/29 Code Status Order: Full Code Advance Directives: Admitting Physician: Bolivar Valdovinos DO PCP: Carson Matamoros MD Discharging Nurse: Ray BHATT Discharging Hospital Unit/Room#: 1018/1018-02 Discharging Unit Emergency Contact: Extended Emergency Contact Information Primary Emergency Contact: ColeleonorSusan [facility] Relation: Legal Guardian Secondary Emergency Contact: Eliazar Taylor Relation: Brother/Sister Past Surgical History: Past Surgical History: Procedure Laterality Date ABDOMEN SURGERY 2012, 2014 Bowel Obstruction X2 CAST APPLICATION Left Lt. Ankle , X3 HYDROCELE EXCISION 10/2015 LAPAROSCOPY 10/19/13 with DANIEL LAPAROTOMY 10/19/13 with partial cecectomy VAGAL NERVE STIMULATION placed, then replaced VAGAL NERVE STIMULATION 12/14/2015 replaced generator battery Immunization History: Immunization History Administered Date(s) Administered COVID-19, PFIZER PURPLE top, DILUTE for use, (age 12 y+), 30mcg/0.3mL 03/10/2020, 04/06/2020, 03/16/2021 TDaP, ADACEL (age 10y-64y), BOOSTRIX (age 10y+), IM, 0.5mL 03/04/2013 Active Problems: Patient Active Problem List Diagnosis Code Small bowel obstruction (HCC) K56.609 Seizures (HCC) Chronic R56.9 MR (mental retardation), severe F72 Epilepsy (HCC) G40.909 SBO (small bowel obstruction) (HCC) K56.609 Mild malnutrition (HCC) E44.1 AFTAB (obstructive sleep apnea) G47.33 Epileptic seizures (HCC) G40.909 Intellectual disability F79 S/P placement of VNS (vagus nerve stimulation) device Z96.89 Dysphagia R13.10 Elevated international normalized ratio (INR) R79.1 Nausea and vomiting R11.2 Seizure disorder (HCC) G40.909 Seizure-like activity (HCC) R56.9 Isolation/Infection: Isolation No Isolation Patient Infection Status None to display Nurse Assessment: Last Vital Signs: BP 116/71 Pulse (!) 49 Temp 97.9 F (36.6 C) (Oral) Resp 18 Ht 1.778 m (5' 10 ) Wt 72.3 kg (159 lb 6.3 oz) SpO2 97% BMI 22.87 kg/m Last documented pain score (0-10 scale): Last Weight: Wt Readings from Last 1 Encounters: 04/27/23 72.3 kg (159 lb 6.3 oz) Mental Status: alert IV Access: - None Nursing Mobility/ADLs: Walking Assisted Transfer Assisted Bathing Assisted Dressing Assisted Toileting Assisted Feeding Assisted Cut Off Worker Dependent Med Delivery whole Wound Care Documentation and Therapy: Elimination: Continence: Bowel: No Bladder: No Urinary Catheter: None Colostomy/Ileostomy/Ileal Conduit: No Date of Last BM: 04/29/23 No intake or output data in the 24 hours ending 04/28/23 1158 I/O last 3 completed shifts: In: 1967.6 [I.V.:1504.6; IV Piggyback:462.9] Out: 700 [Emesis/NG output:700] Safety Concerns: At Risk for Falls Impairments/Disabilities: MRDD Nutrition Therapy: Current Nutrition Therapy: - Oral Diet: General, low fiber Routes of Feeding: Oral; Dysphagia - pureed Liquids: Honey Thick Liquids Daily Fluid Restriction: no Last Modified Barium Swallow with Video (Video Swallowing Test): not done Treatments at the Time of Hospital Discharge: Respiratory Treatments: na Oxygen Therapy: is not on home oxygen therapy. Ventilator: - No ventilator support Rehab Therapies: Physical Therapy, Occupational Therapy, and Speech/Language Therapy as per prior to admission Weight Bearing Status/Restrictions: No weight bearing restrictions Other Medical Equipment (for information only, NOT a DME order): wheelchair, bath bench, and bedside commode Other Treatments: Per long term Patient's personal belongings (please select all that are sent with patient): None RN SIGNATURE: CASE MANAGEMENT/SOCIAL WORK SECTION Inpatient Status Date: 04/24 Readmission Risk Assessment Score: Readmission Risk Risk of Unplanned Readmission: 24 Discharging to Facility/ Agency Name: [facility] Address: [address] [place] [phone] -- on weekend call berna Fax: will send with patient Dialysis Facility (if applicable) Name: Address: Dialysis Schedule: Phone: Fax: [employer]/Cash Application Clerk signature: PHYSICIAN SECTION Prognosis: Fair Condition at Discharge: Stable Rehab Potential (if transferring to Rehab): Fair Recommended Labs or Other Treatments After Discharge: Avoid antidiarrheal medication. Hold Linzess for greater than 3 loose stools in a 24-hour period Physician Certification: I certify the above information and transfer of Amol Taylor is necessary for the continuing treatment of the diagnosis listed and that he requires Intermediate/Mental Retardation/Developmental Disabilities Care for greater 30 days. Update Admission H&P: No change in H&P PHYSICIAN SIGNATURE: documented in this encounter [facility] 04-20-2023 Miscellaneous Notes DISCHARGE PLANNING NOTE Case and chart reviewed by CN. Discharge order in place from yesterday. CN spoke with Ruthann Lee, pt is scheduled to be picked up at 9 am. CN called and spoke with Korina [facility] leader to inform her of this change. CN called and updated guardian, Susan, as well. Discharge Plan remains: return to [facility]. CN will continue to follow and is available should any further needs arise. - Ellen Montes RN 04/20/23 8:25 AM Problem: Pain Goal: Patient goal is pain score less than 4, able to rest, and participant in treatment plan as appropriate Description: INTERVENTIONS: 1. Encourage patient or legal advertising representative to report early pain and ask for [...] per policy 9. Teach patient or legal advertising representative interventions for comforting Outcome: Progressing Note: Evaluation [...] at the bedside 7. Instruct patient/ patient advertising representative about use of safety devices 8. Include patient/ patient advertising representative in decisions related to safety Outcome: Progressing [...] hygiene technique 7. Identify and instruct patient/patient advertising representative in use of appropriate isolation precautions for identified infection/symptoms 8. Provide and discuss with patient/patient advertising representative on educational MDRO sheet 9. Encourage and monitor nutritional status daily and consult supervisor slate splitting if indicated 10. Implement neutropenic guidelines as [...] nutritional intake Problem: Knowledge Deficit Goal: Patient/patient advertising representative demonstrates understanding of disease process, treatment plan, [...] supplement as ordered 13. Collaborate with clinical supervisor slate splitting 14. Include patient/ patient's advertising representative in decisions related to nutrition Outcome: Progressing [...] Score of =/> 25 or indicated by [facility] Assessment Goal: Patient should be free from fall Description: Interventions: 1. [place] to environment 2. Hourly rounds addressing the [...] non-skid footwear 11. Teach patient and patient advertising representative to maintain environment for safety and engage [...] (cane, walker) within reach 19. Request patient advertising representative bring adaptive equipment/mobility aids from home or obtain and provide as needed 20. Consult pharmacy regarding effects of med's affecting mobility, cognition, and alternatives 21. Obtain physician order for PT if risk factors associated with mobility are present 22. Obtain physician order for OT as appropriate 23. Utilize diversional activities 24. Educate patient and patient advertising representative how to maintain a safe environment during visitation times (notify nurse prior to leaving bedside) 25. Consider appropriateness of medical or non-medical staff assistant 26. Set up voiding schedule as appropriate [...] Description: INTERVENTIONS: 1. Encourage patient or legal advertising representative to report early pain and ask for [...] per policy 9. Teach patient or legal advertising representative interventions for comforting Outcome: Progressing Note: Evaluation [...] at the bedside 7. Instruct patient/ patient advertising representative about use of safety devices 8. Include patient/ patient advertising representative in decisions related to safety Outcome: Progressing Note: Evaluation of progress towards goal: patient assessed for risk for falls, environment safe and maintained, hand hygiene complete, will continue to monitor Problem: Moderate - High Risk Fall Score Description: [place] Fall Score of =/> 25 or indicated by [facility] Assessment Goal: Patient should be free from fall Description: Interventions: 1. [place] to environment 2. Hourly rounds addressing the [...] non-skid footwear 11. Teach patient and patient advertising representative to maintain environment for safety and engage [...] (cane, walker) within reach 19. Request patient advertising representative bring adaptive equipment/mobility aids from home or obtain and provide as needed 20. Consult pharmacy regarding effects of med's affecting mobility, cognition, and alternatives 21. Obtain physician order for PT if risk factors associated with mobility are present 22. Obtain physician order for OT as appropriate 23. Utilize diversional activities 24. Educate patient and patient advertising representative how to maintain a safe environment during visitation times (notify nurse prior to leaving bedside) 25. Consider appropriateness of medical or non-medical staff assistant 26. Set up voiding schedule as appropriate [...] Description: INTERVENTIONS: 1. Encourage patient or legal advertising representative to report early pain and ask for [...] per policy 9. Teach patient or legal advertising representative interventions for comforting Outcome: Progressing Note: Evaluation [...] at the bedside 7. Instruct patient/ patient advertising representative about use of safety devices 8. Include patient/ patient advertising representative in decisions related to safety Outcome: Progressing [...] hygiene technique 7. Identify and instruct patient/patient advertising representative in use of appropriate isolation precautions for identified infection/symptoms 8. Provide and discuss with patient/patient advertising representative on educational MDRO sheet 9. Encourage and monitor nutritional status daily and consult supervisor slate splitting if indicated 10. Implement neutropenic guidelines as [...] nutritional intake Problem: Knowledge Deficit Goal: Patient/patient advertising representative demonstrates understanding of disease process, treatment plan, [...] supplement as ordered 13. Collaborate with clinical supervisor slate splitting 14. Include patient/ patient's advertising representative in decisions related to nutrition Outcome: Progressing [...] Score of =/> 25 or indicated by [facility] Assessment Goal: Patient should be free from fall Description: Interventions: 1. [place] to environment 2. Hourly rounds addressing the [...] non-skid footwear 11. Teach patient and patient advertising representative to maintain environment for safety and engage [...] (cane, walker) within reach 19. Request patient advertising representative bring adaptive equipment/mobility aids from home or obtain and provide as needed 20. Consult pharmacy regarding effects of med's affecting mobility, cognition, and alternatives 21. Obtain physician order for PT if risk factors associated with mobility are present 22. Obtain physician order for OT as appropriate 23. Utilize diversional activities 24. Educate patient and patient advertising representative how to maintain a safe environment during visitation times (notify nurse prior to leaving bedside) 25. Consider appropriateness of medical or non-medical staff assistant 26. Set up voiding schedule as appropriate [...] incentive spirometer DISCHARGE PLANNING NOTE BLS to long term set for 2pm. CN notified Guardian, Susan Smith and caregiver at long term, Korina of [place]. DC packet prepared. CN also notified RN and attending of [place] today.Daiana Randall RN CRF faxed to long term and placed in DC packet.Daiana Randall RN DISCHARGE PLANNING NOTE Scheduled a BLS transport to [facility] long term 04/19/2023 at 1400 via PTN. Spoke to Leilani. Problem: Pain Goal: Patient goal is pain score less than 4, able to rest, and participant in treatment plan as appropriate Description: INTERVENTIONS: 1. Encourage patient or legal advertising representative to report early pain and ask for [...] per policy 9. Teach patient or legal advertising representative interventions for comforting Note: Evaluation of progress towards goal: Patient's pain is assessed and documented with appropriate pain scale. Patient does not report pain thus far, pt encouraged to let RN know if she starts to develop pain. DISCHARGE PLANNING NOTE Case discussed in daily transition rounds and chart reviewed by LEO. Barriers to discharge include diet tolerance. Discharge Plan remains: Return to long term with home care. Korina will be point of contact at the long term tomorrow. Sister, Susan, and long term caregiver, Korina, ask for patient to wear his helmet during wheelchair transport. SW asked for Edilma Eastman MD to write discharge order for home care, as long term will ask for the [facility] to send their PT, OT, and ST to the long term to work with patient, if ordered. Sister says she is ordering the speech recommended Provale cup from [employer] today. SW will continue to follow and is available should any further needs arise. - KRYSTIN IRVIN 04/18/23 3:03 PM DISCHARGE PLANNING NOTE CN spoke with Andrei at patient long term to let them know patient may return [...] liquids, possible repeat VFSS. Discussed/messaged recommendations with MILLER Paz; Edilma Eastman MD, and division manager Tonja Briones. Plan Monitor closely for s/s aspiration, continue plan of care Speech Therapy Care Plan Speech Therapy Care Plan (Active) Template: ST - Dysphagia Problem: Swallowing Dates: Start: 04/16/23 Disciplines: GROUP CIO Goal: LTG: Patient will tolerate least restrictive diet recommended by GROUP CIO without signs and symptoms of aspiration 90% of the time Dates: Start: 04/16/23 Expected End: 05/15/23 Disciplines: GROUP CIO Outcomes Date/Time User Outcome 04/18/23 1043 Diana Knight CCC-GROUP CIO Progressing Goal Note filed on 04/18/23 1043 by CONTRERAS Chi Please see Progress Note for details. Goal: STG: Patient will complete safety strategies with minimal assistance during PO intake 90% of the time Dates: Start: 04/16/23 Expected End: 05/15/23 Disciplines: GROUP CIO Speech Therapy Care Plan (Resolved) There are no resolved problems. Principal Problem: SBO (small bowel obstruction) (CMS-HCC) Problem: Discharge Planning Goal: Discharge to post-acute [...] to determine SNF vs return back to long term. Will continue to monitor. Additional Comments: Problem: Pain Goal: Patient goal is pain score less than 4, able to rest, and participant in treatment plan as appropriate Description: INTERVENTIONS: 1. Encourage patient or legal advertising representative to report early pain and ask for [...] per policy 9. Teach patient or legal advertising representative interventions for comforting Note: Evaluation of progress [...] Description: INTERVENTIONS: 1. Encourage patient or legal advertising representative to report early pain and ask for [...] per policy 9. Teach patient or legal advertising representative interventions for comforting Outcome: Progressing Note: Evaluation [...] at the bedside 7. Instruct patient/ patient advertising representative about use of safety devices 8. Include patient/ patient advertising representative in decisions related to safety Outcome: Progressing [...] hygiene technique 7. Identify and instruct patient/patient advertising representative in use of appropriate isolation precautions for identified infection/symptoms 8. Provide and discuss with patient/patient advertising representative on educational MDRO sheet 9. Encourage and monitor nutritional status daily and consult supervisor slate splitting if indicated 10. Implement neutropenic guidelines as [...] patient care. Problem: Knowledge Deficit Goal: Patient/patient advertising representative demonstrates understanding of disease process, treatment plan, [...] plan correct. Pt will be discharged to long term when appropriate for discharge and orders placed. DISCHARGE PLANNING NOTE Per RN during discharge transition rounds, barriers to discharge are: nutrition plan, possible PEG. Discharge Plan: SNF vs back to long term depending on clinical course. [employer] will continue to follow for any discharge needs. - Paty Balderas RN 04/17/23 10:16 AM Problem: Pain Goal: Patient goal is pain score less than 4, able to rest, and participant in treatment plan as appropriate Description: INTERVENTIONS: 1. Encourage patient or legal advertising representative to report early pain and ask for pain medicine when needed 2. Assess pain using appropriate pain scale and include the scale used when documenting 3. Administer analgesics based on type and severity of pain and evaluate response within appropriate time frame 4. Implement non-pharmacological measures as appropriate and evaluate response 8. Reassess pain per policy 9. Teach patient or legal advertising representative interventions for comforting Outcome: Progressing Note: Evaluation [...] at the bedside 7. Instruct patient/ patient advertising representative about use of safety devices 8. Include patient/ patient advertising representative in decisions related to safety Outcome: Progressing [...] up with a decision. Gonzales La MD [facility] DISCHARGE PLANNING NOTE Case discussed in daily transition rounds and chart reviewed by SW. Barriers to discharge include VSS, [facility] nutrition plan. Discharge Plan remains: [place], pending acceptance. SNF will need auth. SW [...] from small bowel obstruction Prognosis Services: Skilled GROUP CIO services to address above deficits Prognosis/Potential: Good [...] Dysphagia Problem: Swallowing Dates: Start: 04/16/23 Disciplines: GROUP CIO Goal: LTG: Patient will tolerate least restrictive diet recommended by GROUP CIO without signs and symptoms of aspiration 90% of the time Dates: Start: 04/16/23 Expected End: 05/15/23 Disciplines: GROUP CIO Goal: STG: Patient will complete safety strategies with minimal assistance during PO intake 90% of the time Dates: Start: 04/16/23 Expected End: 05/15/23 Disciplines: GROUP CIO Speech Therapy Care Plan (Resolved) There are no resolved problems. Principal Problem: SBO (small bowel obstruction) ([facility]) Problem: Pain Goal: Patient goal is pain score less than 4, able to rest, and participant in treatment plan as appropriate Description: INTERVENTIONS: 1. Encourage patient or legal advertising representative to report early pain and ask for [...] per policy 9. Teach patient or legal advertising representative interventions for comforting Outcome: Progressing Note: Evaluation [...] at the bedside 7. Instruct patient/ patient advertising representative about use of safety devices 8. Include patient/ patient advertising representative in decisions related to safety Outcome: Progressing [...] hygiene technique 7. Identify and instruct patient/patient advertising representative in use of appropriate isolation precautions for identified infection/symptoms 8. Provide and discuss with patient/patient advertising representative on educational MDRO sheet 9. Encourage and monitor nutritional status daily and consult supervisor slate splitting if indicated 10. Implement neutropenic guidelines as needed 11. Review exposure to history of communicable disease and recent travel history on admission 12. Encourage annual influenza vaccine 13. Encourage pneumonia vaccine Outcome: Progressing Note: Evaluation of progress towards goal: pt remains free from infection, Problem: Knowledge Deficit Goal: Patient/patient advertising representative demonstrates understanding of disease process, treatment plan, [...] Moderate - High Risk Fall Score Description: Nan Fall Score of =/> 25 or indicated by [facility] Assessment Goal: Patient should be free from fall Description: Interventions: 1. [place] to environment 2. Hourly rounds addressing the [...] non-skid footwear 11. Teach patient and patient advertising representative to maintain environment for safety and engage [...] (cane, walker) within reach 19. Request patient advertising representative bring adaptive equipment/mobility aids from home or obtain and provide as needed 20. Consult pharmacy regarding effects of med's affecting mobility, cognition, and alternatives 21. Obtain physician order for PT if risk factors associated with mobility are present 22. Obtain physician order for OT as appropriate 23. Utilize diversional activities 24. Educate patient and patient advertising representative how to maintain a safe environment during visitation times (notify nurse prior to leaving bedside) 25. Consider appropriateness of medical or non-medical staff assistant 26. Set up voiding schedule as appropriate [...] Description: INTERVENTIONS: 1. Encourage patient or legal advertising representative to report early pain and ask for [...] per policy 9. Teach patient or legal advertising representative interventions for comforting Outcome: Progressing Note: Evaluation [...] at the bedside 7. Instruct patient/ patient advertising representative about use of safety devices 8. Include patient/ patient advertising representative in decisions related to safety Outcome: Progressing Note: Evaluation of progress towards goal: patient remains free from injury, clutter removed from walkways and call light within reach, bed in low position and locked, non skid footwear on. Continue to monitor and educate on safety precautions Problem: Knowledge Deficit Goal: Patient/patient advertising representative demonstrates understanding of disease process, treatment plan, [...] Description: INTERVENTIONS: 1. Encourage patient or legal advertising representative to report early pain and ask for [...] per policy 9. Teach patient or legal advertising representative interventions for comforting Outcome: Progressing Note: Evaluation [...] at the bedside 7. Instruct patient/ patient advertising representative about use of safety devices 8. Include patient/ patient advertising representative in decisions related to safety Outcome: Progressing [...] hygiene technique 7. Identify and instruct patient/patient advertising representative in use of appropriate isolation precautions for identified infection/symptoms 8. Provide and discuss with patient/patient advertising representative on educational MDRO sheet 9. Encourage and monitor nutritional status daily and consult supervisor slate splitting if indicated 10. Implement neutropenic guidelines as [...] nutritional intake Problem: Knowledge Deficit Goal: Patient/patient advertising representative demonstrates understanding of disease process, treatment plan, [...] supplement as ordered 13. Collaborate with clinical supervisor slate splitting 14. Include patient/ patient's advertising representative in decisions related to nutrition Outcome: Progressing [...] Score of =/> 25 or indicated by [facility] Assessment Goal: Patient should be free from fall Description: Interventions: 1. [place] to environment 2. Hourly rounds addressing the [...] non-skid footwear 11. Teach patient and patient advertising representative to maintain environment for safety and engage [...] (cane, walker) within reach 19. Request patient advertising representative bring adaptive equipment/mobility aids from home or obtain and provide as needed 20. Consult pharmacy regarding effects of med's affecting mobility, cognition, and alternatives 21. Obtain physician order for PT if risk factors associated with mobility are present 22. Obtain physician order for OT as appropriate 23. Utilize diversional activities 24. Educate patient and patient advertising representative how to maintain a safe environment during visitation times (notify nurse prior to leaving bedside) 25. Consider appropriateness of medical or non-medical staff assistant 26. Set up voiding schedule as appropriate [...] Description: INTERVENTIONS: 1. Encourage patient or legal advertising representative to report early pain and ask for [...] per policy 9. Teach patient or legal advertising representative interventions for comforting Outcome: Progressing Note: Evaluation of progress towards goal: Pt remains free from falls and injury, medicated using 5 rights, hand hygiene in and out of room, specimens labeled at bedside Problem: Pain Goal: Patient goal is pain score less than 4, able to rest, and participant in treatment plan as appropriate Description: INTERVENTIONS: 1. Encourage patient or legal advertising representative to report early pain and ask for [...] per policy 9. Teach patient or legal advertising representative interventions for comforting Outcome: Progressing Note: Evaluation [...] at the bedside 7. Instruct patient/ patient advertising representative about use of safety devices 8. Include patient/ patient advertising representative in decisions related to safety Outcome: Progressing [...] hygiene technique 7. Identify and instruct patient/patient advertising representative in use of appropriate isolation precautions for identified infection/symptoms 8. Provide and discuss with patient/patient advertising representative on educational MDRO sheet 9. Encourage and monitor nutritional status daily and consult supervisor slate splitting if indicated 10. Implement neutropenic guidelines as [...] nutritional intake Problem: Knowledge Deficit Goal: Patient/patient advertising representative demonstrates understanding of disease process, treatment plan, [...] supplement as ordered 13. Collaborate with clinical supervisor slate splitting 14. Include patient/ patient's advertising representative in decisions related to nutrition Outcome: Progressing [...] Score of =/> 25 or indicated by [facility] Assessment Goal: Patient should be free from fall Description: Interventions: 1. [place] to environment 2. Hourly rounds addressing the [...] non-skid footwear 11. Teach patient and patient advertising representative to maintain environment for safety and engage [...] (cane, walker) within reach 19. Request patient advertising representative bring adaptive equipment/mobility aids from home or obtain and provide as needed 20. Consult pharmacy regarding effects of med's affecting mobility, cognition, and alternatives 21. Obtain physician order for PT if risk factors associated with mobility are present 22. Obtain physician order for OT as appropriate 23. Utilize diversional activities 24. Educate patient and patient advertising representative how to maintain a safe environment during visitation times (notify nurse prior to leaving bedside) 25. Consider appropriateness of medical or non-medical staff assistant 26. Set up voiding schedule as appropriate [...] Description: INTERVENTIONS: 1. Encourage patient or legal advertising representative to report early pain and ask for [...] per policy 9. Teach patient or legal advertising representative interventions for comforting Outcome: Progressing Note: Evaluation of progress towards goal: Patient's pain is assessed and documented with appropriate pain scale. Patient's pain is relieved with PRN medications. Will continue to assess and monitor per hospital policy. DISCHARGE PLANNING NOTE Referral [facility] to [facility] in [place] (P# ; F# ) Neurology was asked [...] further clarification. She is a part of [facility] (#[phone]) and they were contacted and state that [...] contact me. Lola FRANCISCO, RN Clinical Documentation Lay Out Machine Operator [facility] Clinical Revenue Cycle Email: [email or web address] The patient's Clinical Indicators include: See Query. CDI RESPONSE TEXT: Thrombocytopenia Query created by: Floresita Arroyo on 04/13/2023 8:24 AM Electronically signed by: Gonzales La MD 04/13/2023 8:51 AM Problem: Pain Goal: Patient goal is pain score less than 4, able to rest, and participant in treatment plan as appropriate Description: INTERVENTIONS: 1. Encourage patient or legal advertising representative to report early pain and ask for [...] per policy 9. Teach patient or legal advertising representative interventions for comforting Outcome: Progressing Note: Evaluation [...] at the bedside 7. Instruct patient/ patient advertising representative about use of safety devices 8. Include patient/ patient advertising representative in decisions related to safety Outcome: Progressing [...] hygiene technique 7. Identify and instruct patient/patient advertising representative in use of appropriate isolation precautions for identified infection/symptoms 8. Provide and discuss with patient/patient advertising representative on educational MDRO sheet 9. Encourage and monitor nutritional status daily and consult supervisor slate splitting if indicated 10. Implement neutropenic guidelines as needed 11. Review exposure to history of communicable disease and recent travel history on admission 12. Encourage annual influenza vaccine 13. Encourage pneumonia vaccine Outcome: Progressing Note: Evaluation of progress towards goal: Nurse is assessing lines and drains for infection, using required precaution to prevent infection and using cleaning techniques. Problem: Knowledge Deficit Goal: Patient/patient advertising representative demonstrates understanding of disease process, treatment plan, [...] this time, plan to dc back to long term. Additional Comments: Problem: Safety Goal: Patient will be injury free during hospitalization Description: INTERVENTIONS: 1. Assess patient's risk for falls and implement fall prevention plan of care per policy 2. Provide and maintain a safe environment 3. Proper use of double Identifiers 4. Medication administration using the 5 rights 5. Hand hygiene 6. Specimens are labeled at the bedside 7. Instruct patient/ patient advertising representative about use of safety devices 8. Include patient/ patient advertising representative in decisions related to safety Outcome: Progressing [...] Plan for now is to return to [facility]. [employer] will continue to follow for any discharge needs. - Paty Balderas RN 04/12/23 11:36 AM Images from the original note were not included. [facility] [address] [place] [address] SIGNIFICANT EVENT Amol Calloway Kayla Attempted to see patient today. Currently off [...] CHLORIDE mmol/L 112* 112* 110* CO2 mmol/L 23 24 24 BUN mg/dL 17 14 17 CREATININE [...] This note was completed using a voice manager target system. Every effort was made to ensure accuracy. However, inadvertent computerized manager target errors may be present. RALPH Piper 04/12/23 [...] from small bowel obstruction Prognosis Services: Skilled GROUP CIO services to address above deficits Prognosis/Potential: Good Considerations: Cognition, Co-morbidities, Previous level of function Assessment Baseline Assessment Additional Testing Results: Chest X-Ray Setting Prior to Admission: care home Respiratory Status: Room Air Behavior/Cognition: Alert, Cooperative [...] problems. Principal Problem: SBO (small bowel obstruction) ([facility]) Problem: Pain Goal: Patient goal is pain score less than 4, able to rest, and participant in treatment plan as appropriate Description: INTERVENTIONS: 1. Encourage patient or legal advertising representative to report early pain and ask for [...] per policy 9. Teach patient or legal advertising representative interventions for comforting Outcome: Progressing Note: Evaluation [...] at the bedside 7. Instruct patient/ patient advertising representative about use of safety devices 8. Include patient/ patient advertising representative in decisions related to safety Outcome: Progressing [...] hygiene technique 7. Identify and instruct patient/patient advertising representative in use of appropriate isolation precautions for identified infection/symptoms 8. Provide and discuss with patient/patient advertising representative on educational MDRO sheet 9. Encourage and monitor nutritional status daily and consult supervisor slate splitting if indicated 10. Implement neutropenic guidelines as needed 11. Review exposure to history of communicable disease and recent travel history on admission 12. Encourage annual influenza vaccine 13. Encourage pneumonia vaccine Outcome: Progressing Note: Evaluation of progress towards goal: Afebrile, labs and VS monitored Problem: Knowledge Deficit Goal: Patient/patient advertising representative demonstrates understanding of disease process, treatment plan, [...] to achieve discharge goals of returning to long term. Problem: Safety Goal: Patient will be injury free during hospitalization Description: INTERVENTIONS: 1. Assess patient's risk for falls and implement fall prevention plan of care per policy 2. Provide and maintain a safe environment 3. Proper use of double Identifiers 4. Medication administration using the 5 rights 5. Hand hygiene 6. Specimens are labeled at the bedside 7. Instruct patient/ patient advertising representative about use of safety devices 8. Include patient/ patient advertising representative in decisions related to safety Outcome: Progressing [...] Description: INTERVENTIONS: 1. Encourage patient or legal advertising representative to report early pain and ask for [...] per policy 9. Teach patient or legal advertising representative interventions for comforting Outcome: Progressing Note: Evaluation [...] at the bedside 7. Instruct patient/ patient advertising representative about use of safety devices 8. Include patient/ patient advertising representative in decisions related to safety Outcome: Progressing [...] hygiene technique 7. Identify and instruct patient/patient advertising representative in use of appropriate isolation precautions for identified infection/symptoms 8. Provide and discuss with patient/patient advertising representative on educational MDRO sheet 9. Encourage and monitor nutritional status daily and consult supervisor slate splitting if indicated 10. Implement neutropenic guidelines as needed 11. Review exposure to history of communicable disease and recent travel history on admission 12. Encourage annual influenza vaccine 13. Encourage pneumonia vaccine Outcome: Progressing Note: Evaluation of progress towards goal: Afebrile, labs and VS monitored Problem: Knowledge Deficit Goal: Patient/patient advertising representative demonstrates understanding of disease process, treatment plan, [...] supplement as ordered 13. Collaborate with clinical supervisor slate splitting 14. Include patient/ patient's advertising representative in decisions related to nutrition Outcome: Progressing [...] be free from fall Description: Interventions: 1. [place] to environment 2. Hourly rounds addressing the [...] non-skid footwear 11. Teach patient and patient advertising representative to maintain environment for safety and engage [...] (cane, walker) within reach 19. Request patient advertising representative bring adaptive equipment/mobility aids from home or obtain and provide as needed 20. Consult pharmacy regarding effects of med's affecting mobility, cognition, and alternatives 21. Obtain physician order for PT if risk factors associated with mobility are present 22. Obtain physician order for OT as appropriate 23. Utilize diversional activities 24. Educate patient and patient advertising representative how to maintain a safe environment during visitation times (notify nurse prior to leaving bedside) 25. Consider appropriateness of medical or non-medical staff assistant 26. Set up voiding schedule as appropriate [...] medications. Discharge Plan: Patient will return to [facility]. Spoke with long term and patient will need transport back to facility on discharge. [employer] will continue to follow for any discharge needs. - Paty Balderas RN 04/11/23 10:31 AM Problem: Pain Goal: Patient goal is pain score less than 4, able to rest, and participant in treatment plan as appropriate Description: INTERVENTIONS: 1. Encourage patient or legal advertising representative to report early pain and ask for [...] per policy 9. Teach patient or legal advertising representative interventions for comforting Outcome: Progressing Note: Evaluation of progress towards goal: Pt denies pain. Pt level of comfort will be maintained. Prn pain medications is available Problem: Pain Goal: Patient goal is pain score less than 4, able to rest, and participant in treatment plan as appropriate Description: INTERVENTIONS: 1. Encourage patient or legal advertising representative to report early pain and ask for [...] per policy 9. Teach patient or legal advertising representative interventions for comforting Outcome: Progressing Note: Evaluation [...] at the bedside 7. Instruct patient/ patient advertising representative about use of safety devices 8. Include patient/ patient advertising representative in decisions related to safety Outcome: Progressing [...] hygiene technique 7. Identify and instruct patient/patient advertising representative in use of appropriate isolation precautions for identified infection/symptoms 8. Provide and discuss with patient/patient advertising representative on educational MDRO sheet 9. Encourage and monitor nutritional status daily and consult supervisor slate splitting if indicated 10. Implement neutropenic guidelines as needed 11. Review exposure to history of communicable disease and recent travel history on admission 12. Encourage annual influenza vaccine 13. Encourage pneumonia vaccine Outcome: Progressing Note: Evaluation of progress towards goal: Afebrile, labs and VS monitored Problem: Knowledge Deficit Goal: Patient/patient advertising representative demonstrates understanding of disease process, treatment plan, [...] supplement as ordered 13. Collaborate with clinical supervisor slate splitting 14. Include patient/ patient's advertising representative in decisions related to nutrition Outcome: Progressing [...] be free from fall Description: Interventions: 1. [place] to environment 2. Hourly rounds addressing the [...] non-skid footwear 11. Teach patient and patient advertising representative to maintain environment for safety and engage [...] (cane, walker) within reach 19. Request patient advertising representative bring adaptive equipment/mobility aids from home or obtain and provide as needed 20. Consult pharmacy regarding effects of med's affecting mobility, cognition, and alternatives 21. Obtain physician order for PT if risk factors associated with mobility are present 22. Obtain physician order for OT as appropriate 23. Utilize diversional activities 24. Educate patient and patient advertising representative how to maintain a safe environment during visitation times (notify nurse prior to leaving bedside) 25. Consider appropriateness of medical or non-medical staff assistant 26. Set up voiding schedule as appropriate [...] through. Discharge Plan: Patient will return to [facility]. [employer] will continue to follow for any discharge needs. - Paty Balderas RN 04/10/23 10:16 AM Problem: Pain Goal: Patient goal is pain score less than 4, able to rest, and participant in treatment plan as appropriate Description: INTERVENTIONS: 1. Encourage patient or legal advertising representative to report early pain and ask for [...] per policy 9. Teach patient or legal advertising representative interventions for comforting Outcome: Progressing Note: Evaluation [...] at the bedside 7. Instruct patient/ patient advertising representative about use of safety devices 8. Include patient/ patient advertising representative in decisions related to safety Outcome: Progressing [...] hygiene technique 7. Identify and instruct patient/patient advertising representative in use of appropriate isolation precautions for identified infection/symptoms 8. Provide and discuss with patient/patient advertising representative on educational MDRO sheet 9. Encourage and monitor nutritional status daily and consult supervisor slate splitting if indicated 10. Implement neutropenic guidelines as needed 11. Review exposure to history of communicable disease and recent travel history on admission 12. Encourage annual influenza vaccine 13. Encourage pneumonia vaccine Outcome: Progressing Note: Evaluation of progress towards goal: Continue to monitor labs and vs Problem: Knowledge Deficit Goal: Patient/patient advertising representative demonstrates understanding of disease process, treatment plan, [...] NOTE Services Requested: Services Requested Discharge Disposition: Long-Term Long-Term Name: [facility] Does the patient need discharge transportation arranged?: Yes Transportation Arranged: [facility] Visiting Physician/Provider: Carson Matamoros MD Initial DC Assessment Completed: Yes Patient Goals: Patient/Caregiver Goals Patient/Caregiver Goals: (long term) Goals: Goals home (pt-stated) Evaluation of progress towards goal: Patient sister stated back to long term. Patient admitted for: small bowel obstruction Patient discussed in discharge transition rounds: Per RN report barriers include; NPO, NG_LIWS, IVF, IV seizure medications. CN spoke with patient sister, Susan, over the phone , introduced self and explained role. Patient lives at [facility]. Patient sister stated they are mostly independent with direction with ADL's and patient was not able to drive prior to admission. Patient sister states that they currently use a wheelchair DME. Patient endorses no issue financially with being able to obtain medications or food. Patient states that they have working water, gas and electric. Patient's preferred pharmacy is [facility] in [place] PCP added to follow up provider list to receive summary of care at discharge. Based on readmission risk assessment, patient has risk score of 17.3 for readmission. The following arrangements have been made to help prevent readmission. D/C Plan: Patient sister Susan stated patient will return to long term when medically ready. [employer] will continue to follow for any discharge needs. - Paty Balderas RN 04/09/23 11:40 AM Problem: Knowledge Deficit Goal: Patient/patient advertising representative demonstrates understanding of disease process, treatment plan, [...] Description: INTERVENTIONS: 1. Encourage patient or legal advertising representative to report early pain and ask for [...] per policy 9. Teach patient or legal advertising representative interventions for comforting Outcome: Progressing Note: Evaluation [...] at the bedside 7. Instruct patient/ patient advertising representative about use of safety devices 8. Include patient/ patient advertising representative in decisions related to safety Outcome: Progressing [...] hygiene technique 7. Identify and instruct patient/patient advertising representative in use of appropriate isolation precautions for identified infection/symptoms 8. Provide and discuss with patient/patient advertising representative on educational MDRO sheet 9. Encourage and monitor nutritional status daily and consult supervisor slate splitting if indicated 10. Implement neutropenic guidelines as needed 11. Review exposure to history of communicable disease and recent travel history on admission 12. Encourage annual influenza vaccine 13. Encourage pneumonia vaccine Outcome: Progressing Note: Evaluation of progress towards goal: Continue to monitor labs and vs Problem: Knowledge Deficit Goal: Patient/patient advertising representative demonstrates understanding of disease process, treatment plan, [...] Description: INTERVENTIONS: 1. Encourage patient or legal advertising representative to report early pain and ask for [...] per policy 9. Teach patient or legal advertising representative interventions for comforting Outcome: Progressing Note: Evaluation of progress towards goal: patient has no acute complaints of pain documented in this encounter [facility] 04-19-2023 Hospital course Narrative Images from the original note were not included. [facility]- Hospital Medicine Discharge Summary Patient Name: Amol Taylor [...] stimulator BPH CONSULTANTS: General surgery Cardiology Neurology HPI/HOSPITAL COURSE SUMMARY: Amol Taylor is a 68 y.o. male with a past medical history of seizure disorder, vagal nerve stimulator, small-bowel obstructions, MR DD, BPH who was brought to the ED with complaints of vomiting. The patient was subsequently transferred to [facility]. A CT scan showed concern for a [...] not be able to return to his long term with a feeding tube. She reported he was previously doing very well with diet. That he is followed closely at long term and only takes very small amount of [...] DISCHARGE INSTRUCTIONS: Disposition: discharge to return to long term to arrange physical therapy, occupational therapy, and [...] language pathology to be arranged at the long term Physical Exam: BP 96/57 Pulse 77 Temp [...] Your Medications These medications were sent to [place], [place] - [address] [facility] [address], [facility] [address] magnesium oxide 400 mg tablet Thirty-eight minutes were spent on discharging this patient. Edilma Eastman MD documented in this encounter [employer] 04-19-2023 History of Present illness Narrative NUTRITION ADULT FOLLOW UP NUTRITION ASSESSMENT: Patient History: Brief Clinical Summary: 68 yo with PMH: intellectual disability, seizure disorder, vagus nerve stimulator, small-bowel obstruction, and BPH. Pt with complicated abdominal surgical history with multiple small bowel resections and SBO's. Pt was brought to ER with complaints of vomiting and was transferred to [facility] ER. CT scan showed small bowel obstruction. [...] 3 days Lab Units 04/19/23 0500 04/18/23 13204/17/23 1845 04/17/23 0500 04/16/23 1435 PHOSPHORUS mg/dL [...] for: VERYLOWLIP Lab Results Component Value Date [id number] 157 (L) 04/09/2023 Lab Results Component Value [...] 15 g 15 g oral PRN Nazia Chappell MD dextrose 5 % (D5W) infusion 100 mL/hr intravenous Continuous PRN Nazia Chappell MD dextrose 50 % in water (D50W) 50% solution 25 mL 25 mL intravenous PRN Nazia Chappell MD glucagon HCL injection 1 mg 1 mg intramuscular PRN Nazia Chappell MD heparin (porcine) injection 5,000 Units 5,000 Units subcutaneous Q8H [facility] Nazia Chappell MD 5,000 Units at 04/19/23 0629 lacosamide (VIMPAT) tablet 150 mg 150 mg oral Q12H Edilma Eastman MD 150 mg at 04/19/23 0143 lamoTRIgine (LaMICtal) tablet 400 mg 400 mg oral Daily Edilma Eastman MD 400 mg at 04/19/23 0905 lamoTRIgine (LaMICtal) tablet 600 mg 600 mg oral Nightly Edilma Eastman MD 600 mg at 04/18/23 231 latanoprost (XALATAN) 0.005 % ophthalmic solution 1 drop 1 drop both eyes Nightly Houston Perkins MD 1 drop at 04/18/23 2318 levETIRAcetam (KEPPRA) tablet 1,500 mg 1,500 mg oral Daily Edilma Eastman MD 1,500 mg at 04/19/23 0904 levETIRAcetam (KEPPRA) tablet 2,000 mg 2,000 mg oral Nightly Edilma Eastman MD 2,000 mg at 04/18/23 231 magnesium oxide (MAGOX) tablet 400 mg 400 mg oral Daily Edilma Eastman MD magnesium sulfate IVPB 2000 mg/50 mL in iso-osmotic water (40 mg/mL premix) 2,000 mg intravenous PRN Nazia Chappell MD 25 mL/hr at 04/19/23 0649 2,000 mg at 04/19/23 0649 magnesium sulfate IVPB 4000 mg/100 mL in iso-osmotic water (40 mg/mL premix) 4,000 mg intravenous PRN Nazia Chappell MD Stopped at 04/13/23 1603 potassium chloride IVPB 10 mEq/100 mL in water (0.1 mEq/mL premix) 10 mEq intravenous PRJhonatan Chappell MD Stopped at 04/14/23 1855 primidone (MYSOLINE) [...] 20 mL 20 mL intravenous Q12H Nazia Chappell MD 20 mL at 04/19/23 09 And sodium chloride 0.9 % flush 20 mL 20 mL intravenous PRN Nazia Chappell MD And sodium chloride 0.9 % flush 40 mL 40 mL intravenous PRN Nazia Chappell MD sodium chloride 0.9 % flush 3 mL 3 mL intravenous PRN Nazia Chappell MD sodium chloride 0.9 % flush 3 mL 3 mL intravenous Q12H DAR Nazia Chappell MD 3 mL at 04/18/23 2325 sodium chloride 0.9 % flush bag 25 mL intravenous PRN Nazia Chappell MD Stopped at 04/16/23 0646 sodium chloride 0.9 % infusion 20 mL/hr intravenous Continuous PRN Nazia Chappell MD Stopped at 04/16/23 0047 terazosin (HYTRIN) capsule 1 mg 1 mg nasogastric Daily Gonzales La MD 1 mg at 04/19/23 09 Nutrition Focused Physical Findings Last BM 04/19, noted to be loose and watery +PICC, cortrak removed 04/18 Skin (per nursing flow sheets): Skin Color: [place]; Pale (04/19/23899) Skin Temp: Warm; Dry (04/19/23899) [...] RLE Edema: +1 (04/19/23899) LLE Edema: +1 (04/19/23 0900) Intake/ Output Last 24 hrs: Intake/Output Summary [...] eat as he normally does at the long term. Would like to use PEG as last [...] Admit Weight: 74.4 kg (Bed Scale, 04/09) [place] Body Weight: 64.5 kg Weight Changes: 2.8 kg (3.4%) wt loss in < 2 months, not clinically significant Current Body Mass Index: Body mass index is 27.26 kg/m . Comparative Standards: Estimated Energy Needs: 9147-2038 kcals daily. Method and weight used: 25-30 kcal/kg IBW Estimated Protein Needs: 78-130 grams daily. Method and weight used: 1.2-2g protein/kg IBW Estimated Fluid Needs: 4389-9984 ml daily. Method weight used: 1 ml/kcal [...] POC Dinora Reddy RD, LD Clinical Dietitian [facility] [phone] [facility] Hospitalists Progress Note 04/18/2023 Hospital Day: [...] continue to work with therapy at his long term. She would only want PEG as a last resort as he would not be able to return to his long term with a feeding tube and previously doing well with his diet. Will reach out to speech pathology. Possibly consider swallow study without cortrak in place. Serum metabolic panel daily. Phosphorus and magnesium replacement Continue terazosin DVT prophylaxis: Subcutaneous heparin Discharge planning: SNF versus long term. Pending ongoing discussion regarding possible PEG tube [...] 1 mg, nasogastric, Daily Edilma Eastman MD [facility] Hospitalists Progress Note 04/17/2023 Hospital Day: [...] prophylaxis: Subcutaneous heparin Discharge planning: SNF versus long term. Pending ongoing discussion regarding possible PEG tube [...] complaints of vomiting and was transferred to [facility] ER. CT scan showed small bowel obstruction. [...] for: VERYLOWLIP Lab Results Component Value Date [id number] 157 (L) 04/09/2023 Lab Results Component Value [...] 15 g 15 g oral PRN Nazia Chappell MD dextrose 5 % (D5W) infusion 100 mL/hr intravenous Continuous PRN Nazia Chappell MD dextrose 50 % in water (D50W) 50% solution 25 mL 25 mL intravenous PRN Nazia Chappell MD glucagon HCL injection 1 mg 1 mg intramuscular PRN Nazia Chappell MD heparin (porcine) injection 5,000 Units 5,000 Units subcutaneous Q8H DAR Nazia Chappell MD 5,000 Units at 04/16/23 0639 lacosamide [...] mL IVPB 2,000 mg intravenous HS Nazia Chappell MD Stopped at 04/15/23 2325 levETIRAcetam (KEPPRA) IVPB 1500 mg/100 mL in iso-osmotic sodium chloride (15 mg/mL premix) 1,500 mg intravenous QAM AC Nazia Chappell MD Stopped at 04/16/23 0701 magnesium sulfate IVPB 2000 mg/50 mL in iso-osmotic water (40 mg/mL premix) 2,000 mg intravenous PRN Nazia Chappell MD 25 mL/hr at 04/16/23 0856 2,000 mg at 04/16/23 0856 magnesium sulfate IVPB 4000 mg/100 mL in iso-osmotic water (40 mg/mL premix) 4,000 mg intravenous PRN Nazia Chappell MD Stopped at 04/13/23 1603 potassium chloride IVPB 10 mEq/100 mL in water (0.1 mEq/mL premix) 10 mEq intravenous PRN Nazia Chappell MD Stopped at 04/14/23 1855 sodium phosphate [...] 20 mL 20 mL intravenous Q12H Nazia Chappell MD 20 mL at 04/16/23 0001 And sodium chloride 0.9 % flush 20 mL 20 mL intravenous PRN Nazia Chappell MD And sodium chloride 0.9 % flush 40 mL 40 mL intravenous PRN Nazia Chappell MD sodium chloride 0.9 % flush 3 mL 3 mL intravenous PRN Nazia Chappell MD sodium chloride 0.9 % flush 3 mL 3 mL intravenous Q12H DAR Nazia Chappell MD 3 mL at 04/16/23 0852 sodium chloride 0.9 % flush bag 25 mL intravenous PRN Nazia Chappell MD Stopped at 04/16/23 0656 sodium chloride 0.9 % infusion 20 mL/hr intravenous Continuous PRN Nazia Chappell MD Stopped at 04/16/23 0047 terazosin (HYTRIN) capsule 1 mg 1 mg nasogastric Daily Gonzales La MD 1 mg at 04/16/23 0852 Nutrition Focused Physical Findings Last BM 04/15 +PICC, +cortrak Skin (per nursing flow sheets): Skin Color: Pale (04/16/23 0845) Skin Temp: Warm; Dry (04/16/23 0845) Skin Integrity: Intact (04/08/23 06) Skin Turgor: Non-tenting (04/08/23 06) Wound (per nursing flow sheets): Gastrointestinal (per nursing flow sheets): Abdomen Assessment: Soft; Nondistended (04/16/23410) Last BM Date: 04/15/23 (04/16/23410) Passing Flatus: Yes (04/16/23844) RUQ Bowel Sounds: Active (04/16/23844) LUQ Bowel Sounds: Active (04/16/23844) RLQ Bowel Sounds: Active (04/16/23844) LLQ Bowel Sounds: Active (04/16/23844) GI Symptoms: None (04/16/23844) Edema (per nursing [...] Diet History: Spoke with pt's sister and HOME HEALTH TRAVEL PT from long term. Stated prior to admission pt was eating very well. At the facility he needs watched while eating due to try to eat his food too fast, per HOME HEALTH TRAVEL PT. However, pt was eating three times per [...] Admit Weight: 74.4 kg (Bed Scale, 04/09) [place] Body Weight: 64.5 kg Weight Changes: 2.8 kg (3.4%) wt loss in < 2 months, not clinically significant Current Body Mass Index: Body mass index is 26.51 kg/m . Comparative Standards: Estimated Energy Needs: 2039-2637 kcals daily. Method and weight used: 25-30 kcal/kg IBW Estimated Protein Needs: 78-130 grams daily. Method and weight used: 1.2-2g protein/kg IBW Estimated Fluid Needs: 7689-0642 ml daily. Method weight used: 1 ml/kcal Comments: Floor needs based on ideal body weight Malnutrition Status: Malnutrition Present: No NUTRITION DIAGNOSIS: Intake Diagnosis: Inadequate oral intake (NI 2.1) Ongoing NUTRITION INTERVENTIONS: Enteral Nutrition: Continue TF of Osmolite 1.2 to provide 1560 ml formula, 1875 kcals, 87 g protein, and 1279 ml free water daily. Meals and snacks: Continue diet, per GROUP CIO Coordination of Care: Spoke with RN, pt's sister and HOME HEALTH TRAVEL PT GOAL(S): Meet estimated calorie and protein needs. NUTRITION MONITORING AND EVALUATION: TF tolerance, PO intake, weight trend, labs, POC and overall status. Dinora Reddy RD, LD Clinical Dietitian [facility] [phone] Images from the original note were not included. [facility] Hospitalists Progress Note 04/16/2023 Patient Name: [...] Diet: TF Code status: Full Discharge planning: care home Images from the original note were not included. [facility] Progress Note 04/15/2023 Patient Name: [...] Diet: TF Code status: Full Discharge planning: care home Images from the original note were not included. [facility] Hospital[facility] Progress Note 04/14/2023 Patient Name: [...] Intake/Output Summary (Last 24 hours) at 04/14/2023 0758 Last data filed at 04/13/2023 2336 Gross [...] Diet: TF Code status: Full Discharge planning: care home Images from the original note were not included. [facility] [address] [place] [address] PROGRESS NOTE Amol Taylor is resting comfortably [...] Units 04/13/23 0608 04/12/23 1825 04/12/23 0634 04/11/23 1819 04/11/23 0445 04/10/23 0405 [...] This note was completed using a voice manager target system. Every effort was made to ensure accuracy. However, inadvertent computerized manager target errors may be present. Xavier Segal PA-C 04/13/23 1057 Images from the original note were not included. [facility] Hospital[facility] Progress Note 04/13/2023 Patient Name: [...] Diet: NPO Code status: Full Discharge planning: care home Images from the original note were not included. [facility] Progress Note 04/12/2023 Patient Name: [...] Diet: NPO Code status: Full Discharge planning: care home General Surgery B Daily Progress Note IP [...] Dietary Orders (From admission, onward) Start Ordered 04/10/231734 Adult diet Clear Liquid; No carbonated beverages [...] COMPARISON: CT abdomen/pelvis 04/07/2023 FINDINGS: Images: 5 Photo Manager view shows a nonobstructive bowel gas pattern. [...] Resident, PGY-1 General Surgery B 6a-6p pager #[phone] 6p-6a pager #[phone] Associated attestation - Hadley Dave MD - [...] from the original note were not included. [facility] Hospital[facility] Progress Note 04/11/2023 Patient Name: [...] Diet: CLD Code status: Full Discharge planning: care home General Surgery B Daily Progress Note IP [...] effective now Question: Diet Type: Answer: NPO 04/08/23936 Physical Exam General Appearance: Minimal responsiveness due [...] Resident, PGY-1 General Surgery B 6a-6p pager #[phone] 6p-6a pager #[phone] Associated attestation - Jesica Almonte MD - 04/10/2023 8:03 PM EST ------ATTENDING NOTE ----- I saw the patient. I participated and was physically present during the critical/gee portions of the service. I was directly involved in the management and treatment plan of the patient. I reviewed the resident's note. Additional Notes/Findings: MDM: moderate Electronically signed by JESICA ALMONTE MD [facility] General Surgeons Robotic Surgery Surgical Critical Care [phone] Images from the original note were not included. 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 albuterol dextrose dextrose 5 % [...] LIST: Patient Active Problem List Diagnosis Seizures ([facility]) Mental retardation Obesity Balance problem Osteoarthritis Left arm weakness Bowel obstruction ([facility]) Eczema Preventative health care BPH (benign prostatic hyperplasia) Osteopenia Seborrheic dermatitis Medicare annual wellness visit, subsequent Vitamin D deficiency Respiratory crackles Hospital discharge follow-up SBO (small bowel obstruction) ([facility]) ASSESSMENT: Amol Taylor is a [...] to Sunday 12-1:00 p.m. Primary Neurology service: [phone] Consult neurology service: [phone] Resident Stroke Service: [phone] If the patient belongs to the Stroke [...] questions. Principal Problem: SBO (small bowel obstruction) (CMS-HCC) Chief Complaint: No complains ASSESSMENT AND PLAN: Patient is a 68-year-old male with known Hx/o MRDD, seizure s/p VNS, BPH, Multiple episodes of SBO previous surgery at [facility] recent hospitalization for same at [facility] in 02/2023 managed conservatively brought to the [...] 0.0 - 0.2 X10E9/L Magnesium Collection Time: 02/05/24 4:18 AM Result Value Ref Range Magnesium [...] This note was completed using a voice manager target system. Every effort was made to ensure accuracy. However, inadvertent computerized manager target errors may be present. Images from the [...] effective now Question: Diet Type: Answer: NPO 04/08/23936 Physical Exam General Appearance: Minimal responsiveness due [...] Resident, PGY-1 General Surgery B 6a-6p pager #[phone] 6p-6a pager #[phone] Associated attestation - Hadley Dave MD - [...] the next day. documented in this encounter [facility] 04-18-2023 Nurse Note Golf Course Designer spoke with patients GEORGINA Davis, per Dr Cook request, to review case. Speech therapy recommending supervised Level [address] Eastman would like to remove Cortrak and see how patient does with the liquids. Susan is agreeable to this, with an understanding that if it does not go well, the patient may have to have the cortrak put back in. Golf Course Designer also spoke with Susan regarding speech therapys recommendation of a provale cup. Susan stated she would look them up after our phone call was completed and would likely purchase one today. Dr. Eastman notified of writers conversation with Susan ERICKSON documented in this encounter [facility] 04-13-2023 Consult note Associated Order (s): [...] he had to be placed in a long term. He has been in a long term for the last 5 or 6 years. [...] sister who is his medical power of alarm signal operator and her name is Susan. Beyond this [...] guardian and has paperwork for power of alarm signal operator. She has no other concerns at this time. She is sick with influenza and will be in the hospital Sunday. She does not want patient to go to [facility] however would like for him to go to [facility] in [place]. I did relay this message to the care navigation. The nature of above discussion was voluntary in nature. No family was present in the room. I spoke to patient's sister over the phone and more than 20 minutes spent discussing power of alarm signal operator legal guardianship and code status. 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, lt vision loss with some recovery, seizures Obesity with diet pt lost some wt Osteoarthritis Osteopenia dexa 2018 hip -1.7 Pneumonia Seborrheic dermatitis Seizures ([facility]) grand mal/ cluster(jerking motions) // has a VNS implant which decreased grand mal seizures/ jerking episod weekly Uninodular goiter Urine incontinence Past Surgical History: Procedure Laterality Date CLAVICLE SURGERY COLONOSCOPY CYSTOCELE REPAIR 2015 EXCHANGE STIMULATOR BATTERY VAGAL NERVE N/A 03/23/2020 Performed by Nicola Mahan MD at 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 2004 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 [...] level: Not on file Occupational History 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 chewable 11/12/18 Yes Kevin Ilo, DO finasteride (PROSCAR) 5 mg tablet Take 1 tablet (5 mg total) by mouth daily. 04/03/17 Yes Kevin Ilo, DO hydrocortisone (HYTONE) 2.5 % cream Apply [...] (two) times a day. 03/07/18 Yes Kevin Robles DO carbamide peroxide (DEBROX) 6.5 % otic solution Apply 4 ggt to both ear nightly once a month . Cotton ball then in am rinse with body temperature water using syringe in kit 11/12/18 Kevin Robles DO cholecalciferol, vitamin D3, (cholecalciferol) 1,000 units tablet Take 1 tablet (1,000 Units total) by mouth daily. 09/04/18 Kevin Ilo, DO diazePAM (DIASTAT ACUDIAL) 5-7.5-10 mg rectal kit Insert 20 mg into the rectum as needed for seizures (seizure > 15 minutes). Not In System Ref Prov inulin-chromium picolinate 2-100 gram-mcg tablet,chewable Chew 2 tablets and swallow daily. 11/12/18 Kevin Slatero, DO loperamide (IMODIUM A-D) 2 mg tablet [...] pt chronic itching of ey) 10/17/17 Kevin Robles, DO Immunization History Administered Date(s) Administered COVID-19, [...] Susan who is his medical power of alarm signal operator. Care discussed. Care discussed with nursing staff [...] does not want him to go to [facility] but would rather want him to go to [facility] in [facility]. This message was relayed to care navigation team. Thank you for this consult. Will continue to follow. Donnie Day MD, MPH Associated Order(s): IP CONSULT TO NUTRITION SERVICES; IP CONSULT TO NUTRITION SERVICES NUTRITION ADULT INITIAL EVALUATION NUTRITION ASSESSMENT: Reason to be seen: Consult for tube feeding management Patient History: Admit Diagnosis: Patient Active Problem List Diagnosis Seizures ([facility]) Mental retardation Obesity Balance problem Osteoarthritis Left arm weakness Bowel obstruction ([facility]) Eczema Preventative health care BPH (benign prostatic hyperplasia) Osteopenia Seborrheic dermatitis Medicare annual wellness visit, subsequent Vitamin D deficiency Respiratory crackles Hospital discharge follow-up SBO (small bowel obstruction) ([facility]) Past Medical History: Past Medical History: Diagnosis Date Abdominal hernia large but surgical risk Abnormal result of iron profile testing chronic ds Allergic Allergic rhinitis Balance problem falls with several fx// wears helment for protection Bowel obstruction ([facility]) 2017 Apr and Oct BPH (benign prostatic hyperplasia) sees urology 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, lt vision loss with some recovery, seizures Obesity with diet pt lost some wt Osteoarthritis Osteopenia dexa 2018 hip -1.7 Pneumonia Seborrheic dermatitis Seizures ([facility]) grand mal/ cluster(jerking motions) // has a VNS implant which decreased grand mal seizures/ jerking episod weekly Uninodular goiter Urine incontinence Past Surgical History: Past Surgical History: Procedure Laterality Date CLAVICLE SURGERY COLONOSCOPY CYSTOCELE REPAIR 2016 EXCHANGE STIMULATOR BATTERY VAGAL NERVE N/A 03/23/2020 Performed by Nicola Mahan MD at [facility] 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 2004 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 REPAIR [...] complaints of vomiting and was transferred to [facility] ER. CT scan showed small bowel obstruction. [...] for: VERYLOWLIP Lab Results Component Value Date [id number] (L) 04/09/2023 Lab Results Component Value [...] 15 g 15 g oral PRN Nazia Chappell MD dextrose 5 % (D5W) infusion 100 mL/hr intravenous Continuous PRN Nazia Chappell MD dextrose 5 % and sodium chloride 0.45 % infusion 75 mL/hr intravenous Continuous Gonzales La MD 75 mL/hr at 04/13/23 0842 Rate Verify at 04/13/23 0842 dextrose 50 % in water (D50W) 50% solution 25 mL 25 mL intravenous PRN Nazia Chappell MD glucagon HCL injection 1 mg 1 mg intramuscular PRN Nazia Chappell MD heparin (porcine) injection 5,000 Units 5,000 Units subcutaneous Q8H DAR Nazia Chappell MD 5,000 Units at 04/13/23 0600 lacosamide (VIMPAT) 150 mg in sodium chloride 0.9 % 50 mL IVPB 150 mg intravenous Q12H Daniel Blackwell MD Stopped at 04/13/23 0246 latanoprost (XALATAN) 0.005 % ophthalmic solution 1 drop 1 drop both eyes Nightly [place] Judith Perkins MD 1 drop at 04/12/23 2158 levETIRAcetam (KEPPRA) 2,000 mg in sodium chloride 0.9 % 120 mL IVPB 2,000 mg intravenous HS Nazia Chappell MD Stopped at 04/12/23 2218 levETIRAcetam (KEPPRA) IVPB 1500 mg/100 mL in iso-osmotic sodium chloride (15 mg/mL premix) 1,500 mg intravenous QAM AC Nazia Chappell MD Stopped at 04/13/23 0625 magnesium sulfate IVPB 2000 mg/50 mL in iso-osmotic water (40 mg/mL premix) 2,000 mg intravenous PRN Nazia Chappell MD magnesium sulfate IVPB 4000 mg/100 mL in iso-osmotic water (40 mg/mL premix) 4,000 mg intravenous PRN Nazia Chappell MD 25 mL/hr at 04/13/23 1203 4,000 mg at 04/13/23 1203 potassium chloride IVPB 10 mEq/100 mL in water (0.1 mEq/mL premix) 10 mEq intravenous PRN Naiza Chappell MD 100 mL/hr at 04/13/23 1202 10 [...] 20 mL 20 mL intravenous Q12H Nazia Chappell MD 20 mL at 04/12/23 1300 And sodium chloride 0.9 % flush 20 mL 20 mL intravenous PRN Nazia Chappell MD And sodium chloride 0.9 % flush 40 mL 40 mL intravenous PRN Nazia Chappell MD sodium chloride 0.9 % flush 3 mL 3 mL intravenous PRN Nazia Chappell MD sodium chloride 0.9 % flush 3 mL 3 mL intravenous Q12H DAR Nazia Chappell MD 3 mL at 04/13/23 0853 sodium chloride 0.9 % flush bag 25 mL intravenous PRN Nazia Chappell MD sodium chloride 0.9 % infusion 20 mL/hr intravenous Continuous PRN Nazia Chappell MD 20 mL/hr at 04/12/23 1511 Rate [...] Skin (per nursing flow sheets): Skin Color: [place]; Pale (04/13/23 1000) Skin Temp: Dry; Warm (04/13/23 1000) Skin Integrity: Intact (04/08/23626) Skin Turgor: Non-tenting (04/08/23626) Wound (per nursing flow sheets): Gastrointestinal (per nursing flow sheets): Abdomen Assessment: Soft; Nondistended (04/13/23 1000) Last BM Date: 04/12/23 (04/12/232202) Passing Flatus: Yes (04/13/23744) RUQ Bowel Sounds: Active (04/13/23744) LUQ Bowel Sounds: Active (04/13/23744) RLQ Bowel [...] Orders (From admission, onward) Start Ordered 04/12/23 09 Adult diet NPO Diet effective now [...] Weight: See weight trends in chart above [place] Body Weight: 64.5 kg Percent [place] Body Weight: 115% Weight Changes: 2.8 kg (3.4%) wt loss in < 2 months, not clinically significant Body Mass Index: Body mass index is 28.08 kg/m . BMI Category: Pre-obese (25.00- 29.99) Comparative Standards: Estimated Energy Needs: 3909-4365 kcals daily. Method and weight used: 25-30 kcal/kg IBW Estimated Protein Needs: 78-130 grams daily. Method and weight used: 1.2-2g protein/kg IBW Estimated Fluid Needs: 9078-2316 ml daily. Method weight used: 1 ml/kcal [...] status. Dinora Reddy RD, LD Clinical Dietitian [facility] [phone] Associated Order(s): IP CONSULT TO CARDIOLOGY Images from the original note were not included. [facility] [address] [place] [address] HISTORY & PHYSICAL / CONSULT NOTE Amol [...] into the 30s. Patient lives in a long term. He is unable to provide much history. 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 Dysarthria clicking teeth, loud exhales, extra noises Dysphagia work up in progrss to r/o aspiration Eczema Fractures due to falls/ left leg x 2 // uses brace History of difficult intubation [facility] - 2016 Hydrocele of testis 2016 Left [...] 03/23/2020 Performed by Nicola Mahan MD at 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 2004 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 REPAIR 7 months old SMALL INTESTINE SURGERY 1985, 1992, 1993 s/p diverticulitis; bowel obstruction x 2 Allergies: Allergies Allergen Reactions Penicillins Hives and Shortness Of Breath Clindamycin [facility] Meds: Current Facility-Administered Medications Medication Dose Route Frequency Provider Last Rate Last Admin albuterol (PROVENTIL,VENTOLIN) nebulizer solution 2.5 mg 2.5 mg nebulization Q6H PRN Houston Perkins MD 2.5 mg at 04/10/23 1214 cyanocobalamin (VITAMIN B-12) injection 1,000 mcg 1,000 mcg intramuscular Daily Houston Perkins MD 1,000 mcg at 04/11/23 0924 dextrose (GLUTOSE) 40 % gel 15 g 15 g oral PRN Nazia Chappell MD dextrose 5 % (D5W) infusion 100 mL/hr intravenous Continuous PRN Nazia Chappell MD dextrose 50 % in water (D50W) 50% solution 25 mL 25 mL intravenous PRN Nazia Chappell MD glucagon HCL injection 1 mg 1 mg intramuscular PRN Nazia Chappell MD heparin (porcine) injection 5,000 Units 5,000 Units subcutaneous Q8H DAR Nazia Chappell MD 5,000 Units at 04/11/23 0535 iron [...] mL IVPB 2,000 mg intravenous HS Nazia Chappell MD Stopped at 04/10/23 2130 levETIRAcetam (KEPPRA) IVPB 1500 mg/100 mL in iso-osmotic sodium chloride (15 mg/mL premix) 1,500 mg intravenous QAM AC Nazia Chappell MD Stopped at 04/11/23 0549 magnesium sulfate IVPB 2000 mg/50 mL in iso-osmotic water (40 mg/mL premix) 2,000 mg intravenous PRN Nazia Chappell MD magnesium sulfate IVPB 4000 mg/100 mL in iso-osmotic water (40 mg/mL premix) 4,000 mg intravenous PRN Nazia Chappell MD 25 mL/hr at 04/11/23 0900 4,000 mg at 04/11/23 0900 potassium chloride IVPB 10 mEq/100 mL in water (0.1 mEq/mL premix) 10 mEq intravenous PRN Nazia Chappell MD sodium phosphate 20 mmol in sodium [...] 20 mL 20 mL intravenous Q12H Nazia Chappell MD 20 mL at 04/11/23 0100 And sodium chloride 0.9 % flush 20 mL 20 mL intravenous PRN Nazia Chappell MD And sodium chloride 0.9 % flush 40 mL 40 mL intravenous PRN Nazia Chappell MD sodium chloride 0.9 % flush 3 mL 3 mL intravenous PRN Nazia Chappell MD sodium chloride 0.9 % flush 3 mL 3 mL intravenous Q12H DAR Nazia Chappell MD 3 mL at 04/10/23 2100 sodium chloride 0.9 % flush bag 25 mL intravenous PRN Nazia Chappell MD sodium chloride 0.9 % infusion 20 mL/hr intravenous Continuous PRN Nazia Chappell MD Home Meds: Prior to Admission medications [...] needed for wheezing. 02/15/23 Yes Christine Saini, calcium carbonate (OS-TAYE) 600 mg (1,500 mg) tablet Take 1 tablet (600 mg total) by mouth 2 (two) times a day with meals. chewable 11/12/18 Yes Kevin Robles, finasteride (PROSCAR) 5 mg tablet Take 1 [...] Units total) by mouth daily. 09/04/18 Kevin Robles DO diazePAM (DIASTAT ACUDIAL) 5-7.5-10 mg rectal [...] day as needed for diarrhea. 04/03/17 Kevin Robles DO melatonin (CIRCADIN) tablet Take 3 tablets [...] Results from last 7 days Lab Units 04/11/2344404/10/2340404/09/23 1824 04/09/23 0418 SODIUM mmol/L 145 144 -- 145 POTASSIUM mmol/L 4.0 4.0 -- 4.0 CHLORIDE mmol/L 112* 110* -- 110* CO2 mmol/L 24 24 -- 25 BUN mg/dL 14 17 -- 19 CREATININE mg/dL 0.68 0.68 -- 0.78 CALCIUM mg/dL 8.5 8.5 -- 8.4* PHOSPHORUS mg/dL -- 2.8 3.1 2.3* MAGNESIUM mg/dL 1.6* 1.9 2.3 1.5* PT/INR: APTT: MAG: Results from last 7 days Lab Units 04/11/23 0445 04/10/23 0405 04/09/23 1824 MAGNESIUM mg/dL 1.6* 1.9 2.3 D Dimer: [...] This note was completed using a voice manager target system. Every effort was made to ensure accuracy. However, inadvertent computerized manager target errors may be present. 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, lt vision loss with some recovery, seizures Obesity with diet pt lost some wt Osteoarthritis Osteopenia dexa 2018 hip -1.7 Pneumonia Seborrheic dermatitis Seizures ([facility]) grand mal/ cluster(jerking motions) // has a [...] LIST: Patient Active Problem List Diagnosis Seizures ([facility]) Mental retardation Obesity Balance problem Osteoarthritis Left arm weakness Bowel obstruction ([facility]) Eczema Preventative health care BPH (benign prostatic hyperplasia) Osteopenia Seborrheic dermatitis Medicare annual wellness visit, subsequent Vitamin D deficiency Respiratory crackles Hospital discharge follow-up SBO (small bowel obstruction) ([facility]) ASSESSMENT: Amol Taylor is a [...] NPO with an NG to suction Will casino change attendant oral AEDs to IV as able IV [...] to Sunday 12-1:00 p.m. Primary Neurology service: [phone] Consult neurology service: [phone] Resident Stroke Service: [phone] If the patient belongs to the Stroke [...] concerns for SBO. Pt was transferred to [facility]. 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, lt vision loss with some recovery, seizures Obesity with diet pt lost some wt Osteoarthritis Osteopenia dexa 2018 hip -1.7 Pneumonia Seborrheic dermatitis Seizures ([facility]) grand mal/ cluster(jerking motions) // has a VNS implant which decreased grand mal seizures/ jerking episod weekly Uninodular goiter Urine incontinence Past Surgical History: Procedure Laterality Date CLAVICLE SURGERY COLONOSCOPY CYSTOCELE REPAIR 2016 EXCHANGE STIMULATOR BATTERY VAGAL NERVE N/A 03/23/2020 Performed by Nicola Mahan MD at [facility] 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 2004 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 REPAIR 7 months old SMALL INTESTINE SURGERY 1985, 1992, 1993 s/p diverticulitis; bowel obstruction x 2 Allergies Allergen Reactions Penicillins Hives and Shortness Of Breath Clindamycin Rash Current Facility-Administered Medications: dextrose (GLUTOSE) 40 % gel 15 g, 15 g, oral, PRN, Nazia Chappell MD dextrose 5 % (D5W) infusion, 100 mL/hr, intravenous, Continuous PRN, Nazia Chappell MD dextrose 50 % in water (D50W) 50% solution 25 mL, 25 mL, intravenous, PRN, Nazia Chappell MD glucagon HCL injection 1 mg, 1 mg, intramuscular, PRN, Nazia Chappell MD heparin (porcine) injection 5,000 Units, 5,000 Units, subcutaneous, Q8H DAR, Nazia Chappell MD, 5,000 Units at 04/08/23 1015 sodium chloride 0.9 % flush 3 mL, 3 mL, intravenous, PRN, Nazia Chappell MD sodium chloride 0.9 % flush 3 mL, 3 mL, intravenous, Q12H DAR, Nazia Chappell MD sodium chloride 0.9 % flush bag, 25 mL, intravenous, PRN, Nazia Chappell MD sodium chloride 0.9 % infusion, 20 mL/hr, intravenous, Continuous PRN, Nazia Chappell MD sodium chloride 0.9 % with KCl 20 mEq/L infusion, 100 mL/hr, intravenous, Continuous, Nazia Chappell MD, Last Rate: 100 mL/hr at 04/08/23 1015, 100 mL/hr at 04/08/23 1015 Social History Socioeconomic History Marital status: Single Spouse name: Not on file Number of children: 0 Years of education: Not on file Highest education level: Not on file Occupational History 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 GENERAL HISTORY AND PHYSICAL: 04/08/23 PROBLEM: Principal Problem: SBO (small bowel obstruction) (CMS-HCC) HISTORY OF PRESENT ILLNESS: Amol Taylor is an 68 y.o. with a past medical history of seizure disorder, vagus nerve stimulator, small-bowel obstruction, MR DD, BPH who was brought to the ER with complaints of vomiting . He was subsequently transferred to [facility] ER. 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, lt vision loss with some recovery, seizures Obesity with diet pt lost some wt Osteoarthritis Osteopenia dexa 2018 hip -1.7 Pneumonia Seborrheic dermatitis Seizures ([facility]) grand mal/ cluster(jerking motions) // has a VNS implant which decreased grand mal seizures/ jerking episod weekly Uninodular goiter Urine incontinence PAST SURGICAL HISTORY: Past Surgical History: Procedure Laterality Date CLAVICLE SURGERY COLONOSCOPY CYSTOCELE REPAIR 2015 EXCHANGE STIMULATOR BATTERY VAGAL NERVE N/A 03/23/2020 Performed by Nicola Mahan MD at 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 2005 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 REPAIR 7 months old SMALL INTESTINE [...] level: Not on file Occupational History 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 Did [...] Small-bowel obstruction History of seizure disorder MR VIANEY History of BPH PLAN: Small-bowel obstruction-management as [...] obtained from facility documented in this encounter [facility] 04-08-2023 Emergency department Note Golf Course Designer RN spoke to Legal Guardian Elizabeth. Pat addressed concerns about vagal nerve stimulator and magnet not with patient for epilepsy. Dr. Gilman notified and aware. Pt transfer from [place]. History of SBO. Begun having n/v, found to have multiple SBO per sending facility report. NG in place to low intermittent suction. Received zofran and morphine [employer]. Denies symptoms at this time. Images from the original note were not included. History Chief Complaint Patient presents with Vomiting Initial evaluation by Dr. De Jesus 68 y.o. pt. presents to ED as a transfer from [place] ED due to small bowel obstruction. Patient presented to outside ED due to decreased bowel movements. Patient has a history of MRDD and multiple abdominal surgeries. On arrival to [place] ED, patient has no complaints. Denies pain. NG tube in place. 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: Patient Patient Active Problem List Diagnosis Seizures (CMS-HCC) Mental retardation Obesity Balance problem Osteoarthritis Left arm weakness Bowel obstruction ([facility]) Eczema Preventative health care BPH (benign prostatic hyperplasia) Osteopenia Seborrheic dermatitis Medicare annual wellness visit, subsequent Vitamin D deficiency Respiratory crackles Hospital discharge follow-up SBO (small bowel obstruction) ([facility]) Past Medical History: Diagnosis Date Abdominal hernia large but surgical risk Abnormal result of iron profile testing chronic ds Allergic Allergic rhinitis Balance problem falls with several fx// wears helment for protection Bowel obstruction ([facility]) 2016 and Oct BPH (benign prostatic hyperplasia) sees urology 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, lt vision loss with some recovery, seizures Obesity with diet pt lost some wt Osteoarthritis Osteopenia dexa 2018 hip -1.7 Pneumonia Seborrheic dermatitis Seizures ([facility]) grand mal/ cluster(jerking motions) // has a VNS implant which decreased grand mal seizures/ jerking episod weekly Uninodular goiter Urine incontinence Past Surgical History: Procedure Laterality Date CLAVICLE SURGERY COLONOSCOPY CYSTOCELE REPAIR 2015 EXCHANGE STIMULATOR BATTERY VAGAL NERVE N/A 03/23/2020 Performed by Nicola Mahan MD at [facility] 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 2004 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 [...] of 04/08/23 0751 SBO (small bowel obstruction) ([facility]) Seizure disorder ([facility]) MDM Medical Decision Making Conor Ng (edgar) documented for Dr. De Jesus. Chart Reviewed. [...] you. Diagnosis: 1. SBO (small bowel obstruction) ([facility]) 2. Seizure disorder ([facility]) Disposition: Patient's disposition: Admit Patient's condition is stable. Provider Statement By electronically signing this emergency patient record, the Emergency Physician/SAFETY PATROL OFFICER/PA-C attests that all entries made into the electronic medical record by edgar Nolan prior to the Physician/SAFETY PATROL OFFICER/PA-C signature reflect an accurate accounting of the evaluation and care rendered by that Emergency Physician/SAFETY PATROL OFFICER/PA-C. The Emergency Physician/SAFETY PATROL OFFICER/PA-C assumes full responsibility for those entries. The Emergency Physician/SAFETY PATROL OFFICER/PA-C also attests that any patient testing or treatment that was instituted by nursing staff in accordance to Emergency Department Preemptive Guidelines have been reviewed and unless so stated elsewhere in this patient chart, the Physician/SAFETY PATROL OFFICER/DOUGIE agrees with the testing and care provided. No Additional Attestations Conor Lord 04/08/23 0538 Deneen De Jesus MD 04/08/23 0539 Conor Lord 04/08/23 0549 Conor Lord 04/08/23 0557 Dorothy Lowery 04/08/23 0739 Dorothy Sebastián 04/08/23 0743 Dorothy Lowery 04/08/23 0751 Deneen De Jesus MD 04/09/23 0305 Bed: 17 Expected date: Expected time: Means [...] clacking. Hx of difficulty intubation reportedly. RN 0433 1700 out NG 1 Emesis prior to placement USIV used for difficult stick Still need urine 113/71 69 96% RA Loading right now EMS: No symptoms at time 75hr 96% RA 109/51 ETA 5 min documented in this encounter [facility] 02-16-2023 Hospital Discharge instructions Follow Up Care 02/16/2023 10:34:53 With:ELSIE CASTANON PA-C, URL Address: [address] [place] [address] When: Unknown [facility] 01-31-2023 Note [id number] [facility] 01-10-2023 Note DISCHARGE SUMMARY [address] [address] AMOL TAYLOR Date of : 1955 67 [...] stable enough for discharge back to his long term. PE: General: alert, no acute distress, ENMT: [...] return to clinic or to emergency room. [facility] Comment on above: Result Comment: Elec tronically Signed By: Melchor Rivera DO\.br\Date and Time Signed: 01/10/23 13:49 EST 11-11-2022 [...] Follow these instructions at home: Medicines Take rnur-zrj-yamdipb and prescription medicines only as told by [...] to keep your urine pale yellow. ?Take lxnr-mkw-exfzfar or prescription medicines. ?Eat foods that are [...] provider. Document Revised: 04/03/2021 Document Reviewed: 04/03/2021 RAREFORM Patient Education 2022 [place]. Follow Up Care 11/08/2022 08:52:02 With:CARSON MATAMOROS MD, FAM Address: [address] [place] [address] When: Unknown [facility] 11-08-2022 Note Chief Complaint Nausea and Vomiting [...] Scoring [place] Fall Risk Score: 55 High (09/06/23) Physical Exam Vitals & Measurements T: 36.3 [...] 14.2 gm/dL (11/08/22 09:35:00) Hct: 42.9 % (11/08/22 09:35:00) MCV: 96.2 fL (11/08/22 09:35:00) MCH: 31.9 pg (11/08/22 09:35:00) MCHC: 33.2 gm/dL (11/08/22 09:35:00) RDW: 13.5 % (11/08/22 09:35:00) Platelet: 193 E9/L (11/08/22 09:35:00) MPV: 8.4 fL (11/08/22 09:35:00) Neutro Auto: 83.8 % High (11/08/22 09:35:00) Lymph Auto: 9.8 % Low (11/08/22 09:35:00) [place] Auto: 6.2 % (11/08/22 09:35:00) Eos Auto: 0.1 % (11/08/22 09:35:00) Basophil Auto: 0.1 % (11/08/22 09:35:00) Neutro Absolute: 11.1 E9/L High (11/08/22 09:35:00) Lymph Absolute: 1.3 E9/L (11/08/22 09:35:00) [place] Absolute: 0.8 E9/L (11/08/22 09:35:00) Eos Absolute: 0 E9/L (11/08/22 09:35:00) Basophil Absolute: 0 E9/L (11/08/22 09:35:00) Glucose Lvl: 121 mg/dL (11/08/22 09:35:00) BUN: [...] in the fu (more content not included)... [facility] Comment on above: Result Comment: Elec tronically [...] Appointments Appointment Date:11/17/2022 10:30:00 AM Scheduled [facility]: [facility] Type:Trauma Subsequent Follow Up (FT) Appointment Date:02/16/2023 10:15:00 AM Scheduled Provider:Yasmani CAMARA MD Location:[facility] Appointment Type:URO Office Visit [facility]07-06-2023 History of Present illness Narrative* Carlie Sanchez RN - 09/07/2022 4:55 PM EDT Patient discharged, via wheelchair, to long term van with blasting contract man at this time. All belongings and patient information packet in hand. * Carlie Sanchez RN - 09/07/2022 3:55 PM EDT Golf Course Designer and MILLER Ochoaaccounting manager cpa, called report to Laura at long term at this time. All questions answered, callback number given in case of further questions. Will continue to monitor. * Shawn Llamas, SUPERINTENDENT OIL WELL SERVICES - 09/07/2022 3:29 PM EDT Physical Therapy Facility/Department: [facility] Daily Treatment Note NAME: Amol Taylor : 1955 Date of Service: 09/07/2022 Discharge Recommendations: Continue to assess pending progress Patient Diagnosis(es): The encounter diagnosis was Small bowel obstruction (HCC). Assessment Assessment: Seated ther-ex completed this session with fair tolerance but max v/c and tactile cues needed to stay on task. Per nursing Pt is to go back to long term this afternoon. Activity Tolerance: Treatment limited secondary [...] PM EDT Patient is discharge back to long term today. The guardian aware of the discharge. care home aware of discharge and will provide the transportation. KRYSTIN Farley * SHANTI Rudd - 09/07/2022 10:45 AM EDT Occupational Therapy Facility/Department: [facility] Daily Treatment Note NAME: [...] 09/07/2022 9:45 AM EDT Physical Therapy Facility/Department: [facility] Daily Treatment Note NAME: [...] Group Co-treatment Time In 903 Time Out 09 Minutes 18 Shoshana Yo PTA * Carlie [...] PM EDT I call his legal guardian Susan concerning Amol's code status. She tells me that she has been thinking about it and she needs to talk with her brother about changing it possibly. I tell her we will follow her about it. Shae Whitehead RN [facility] Nurse Coordinator 09/07/2022 7:36 AM [...] 09/06/2022 12:26 PM EDT Occupational Therapy Facility/Department: [facility] Daily Treatment Note NAME: [...] of Care;Home Exercise Program Education Method: Demonstration;Verbal (MINTO, tactile cueing) Barriers to Learning: Cognition Education [...] muscle mass loss Fluid Accumulation: Mild Extremities Curer Acid Drum Strength: Not Performed Electronically signed by Rinku Montalvo RDN, NNEKA 09/06/2022, 12:20 PM * Ramandeep Coffey, MECCA - 09/06/2022 9:33 AM EDT Physical Therapy Facility/Department: [facility] Daily Treatment Note NAME: [...] from the original note were not included. [address], [place], [place], [address] Attestation Patient: Amol Taylor Date of Admission: 09/02/2022 5:58 PM Hospital Day # 4 Date of Evaluation: 09/06/2022 I personally evaluated and examined the patient xeoo-[id number] in conjunction with the PA/SAFETY PATROL OFFICER and agree with the management and dispostition of the patient. Please see the PA/SAFETY PATROL OFFICER's note for full details.My gee findings are: SUBJECTIVE: Patient seen for follow up of SBO (small bowel obstruction) (HCC). Patient seen and examined at thebed side [...] 132* Recent Labs 09/04/22 0550 09/05/22 0535 09/06/22 0415 SEGS 79* 80* 69* NEUTROABS 10.07* 9.62* [...] with the plan as outlined in the SAFETY PATROL OFFICER/PA's note Disposition: Discharge plan is pending GS recommendations and improvement of SBO. Please note that this chart was generated using voice recognition [employer] dictation software. Although every effort was made to ensure the accuracy of this automated manager target, some errors in manager target may have occurred. Lyla Zepeda MD 09/06/2022 [...] Vimpat Nutrition status: at risk for malnutrition [employer]acht consult initiated Hospital Prophylaxis: DVT: Lovenox Stress Ulcer: PPI Disposition: Shared decision making: All test results, treatment options and disposition options were discussed with the patient today Social determinants of health that may impact management: none Code status: Full Code Disposition: Discharge plan is home [facility] Advanced Care Planning documentation: [x] I have [...] the patient's medical record. [DOES NOT SATISFY [facility] PERFORMANCE] Dorota Woodson APRN - ORTHOTIC ASSISTANT , GENERAL STUDIES PROGRAM CHAIR, SAFETY PATROL OFFICER-C Hospitalist Medicine 09/06/2022, 9:15 AM * Connie Newsome [...] Zavala RCP - 09/05/2022 4:00 PM EDT Golf Course Designer called by RN to assess pt's mucous clearing ability. Pt was snoring loudly when junior underwriter entered the room. Golf Course Designer woke pt up and asked pt to cough. Pt coughed and was able to clear some of the congestion at back of throat. Golf Course Designer orally suctioned pt to assist with mucous clearing. * Georgie Dillard RN - 09/05/2022 2:42 PM EDT Reassessment and vitals obtained at this time as charted. Patient remains slightly tachypneic, vitals otherwise WNL. Patient denies pain. Patient remains oriented to person only at this time. Patientknows he is in the hospital but is unable to tell junior underwriter which hospital or town he is in. [...] 09/05/2022 9:14 AM EDT Occupational Therapy Facility/Department: [facility] Daily Treatment Note NAME: [...] 0756 Minutes 26 SHANTI Armstrong * Lillian Hernandez, SUPERINTENDENT OIL WELL SERVICES - 09/05/2022 9:13 AM EDT Physical Therapy Facility/Department: [facility] Daily Treatment Note NAME: [...] movement and was repositioned in the bed. Golf Course Designer asked Dorota FREDERICK about suppository, per Dorota, hold suppository this morning. Patient is resting in the bed, denies any other needs atthis time. Call light in reach, bed alarm on, care ongoing. * Dorota Woodson, RAISA - ORTHOTIC ASSISTANT - 09/05/2022 8:04 AM EDT Progress Note SUBJECTIVE: Patient seen for f/u of SBO (small bowel obstruction) ([facility]). He resting in bed no [...] Vimpat Nutrition status: at risk for malnutrition [employer] consult initiated Hospital Prophylaxis: DVT: Lovenox Stress Ulcer: PPI Disposition: Shared decision making: All test results, treatment options and disposition options were discussed with the patient today Social determinants of health that may impact management: none Code status: Full Code Disposition: Discharge plan is home [facility] Advanced Care Planning documentation: [x] I have [...] the patient's medical record. [DOES NOT SATISFY [facility] PERFORMANCE] Dorota Woodson APRN - ORTHOTIC ASSISTANT , GENERAL STUDIES PROGRAM CHAIR, SAFETY PATROL OFFICER-[facility] 09/05/2022, 8:05 AM Associated attestation - Lyla Zepeda MD - 09/05/2022 11:28 AM EDT Images from the original note were not included. [address], [place], [place], [address] Attestation Patient: Amol Taylor Date of Admission: 09/02/2022 5:58 PM Hospital Day # 3 Date of Evaluation: 09/05/2022 I personally evaluated and examined the patient [id number] in conjunction with the PA/SAFETY PATROL OFFICER and agree with the management and dispostition of the patient. Please see the PA/SAFETY PATROL OFFICER's note for full details.My gee findings are: SUBJECTIVE: Patient seen for follow up of SBO (small bowel obstruction) ([facility]). Patient seen and examined at [...] with the plan as outlined in the SAFETY PATROL OFFICER/PA's note Disposition: Discharge plan is pending Please note that this chart was generated using voice recognition [employer] dictation software. Although every effort was made to ensure the accuracy of this automated manager target, some errors in manager target may have occurred. Lyla Zepeda MD 09/05/2022 11:27 AM * Georgie Dillard RN - 09/05/2022 7:45 AM EDT Therapy at bedside at this time and states that when they moved the patient just slightly, his NG tube came out. Golf Course Designer updated Dorota FREDERICK about NG tube being [...] bed is zeroed at this time. * Connei Newsome RN - 09/04/2022 6:50 PM EDT Pt laying in bed awake. VS and assessment as charted. Pt denies any pain. Pt denies any current needs and was just changed prior to shift change due to incontinence. Call light within reach, bed alarm in place. * Carlie Sanchez RN - 09/04/2022 4:57 PM EDT Golf Course Designer called Dr. Durand at this time to inform MD of pt BM earlier today per Dorota FREDERICK. states alright, very well, thank ya. Will continue to monitor. * KRYSTIN Torres - 09/04/2022 4:54 PM EDT Attempts made to contact legal guardian without success. Will try again at a later time. KRYSTIN Torres 09/04/2022 * Carlie Sanchez RN - 09/04/2022 2:16 PM EDT Ramesh with launderer hand called at this time regarding midline catheter placement. RN states he will be here in about 35 minutes. Peripheral IV continues to work at this time while awaiting midline. Will continue to monitor. * Ramandeep Coffey PTA - 09/04/2022 1:59 PM EDT Physical Therapy Facility/Department: [facility] Daily Treatment Note NAME: Amol Taylor DOB: 1955 Date of Service: 09/04/2022 Discharge Recommendations: [...] incontinent BM. See flowsheets. Dorota FREDERICK notified. ORTHOTIC ASSISTANT states hallelujah! Will continue to monitor. * Carlie Sanchez RN - 09/04/2022 12:25 PM EDT launderer hand for Midline catheter placement per order at [...] Fluid Accumulation: No significant fluid accumulation Extremities Curer Acid Drum Strength: Not Performed Nutrition Assessment: Inadequate protein-energy intake related to altered GI function as evidenced by other (comment) (small bowel obstruction.)NG to LIWS. COB=148#, AAX=842# (06/23/2022). Pt is a resident at a long term,and note recurring small bowel obstructions. Pt is telling junior underwriter he has to take a bowel movement [...] Anthropometric Measures: Height: 5' 5 (165.1 cm) [place] Body Weight (IBW): 136 lbs (62 kg) [...] Used for Energy Requirements: Current Energy (kcal/day): 1981-4573 (20-22) Weight Used for Protein Requirements: [place] Protein (g/day): 61.8-74 (1.0-1.2) Method Used for Fluid Requirements: 1 ml/kcal Fluid (ml/day): 1900+ Nutrition Diagnosis: Inadequate protein-energy intake related to [...] current diet Kimberly Talbert RD, LD Contact: [phone] * Luz Marina Durand MD - 09/04/2022 [...] 09/04/2022 10:57 AM EDT Occupational Therapy Facility/Department: [facility] Daily Treatment Note NAME: [...] Minutes 23 KHLOE Ribeiro/Jie * Ramandeep Coffey, SUPERINTENDENT OIL WELL SERVICES - 09/04/2022 9:58 AM EDT [facility] Inpatient/Observation/Outpatient Rehabilitation Date: 09/04/2022 Patient Name: [...] Educated pt on importance of therapeutic participation. Therapist/Brake Lining Curer will attempt to see this patient, at our earliest opportunity. Ramandeep Coffey, SUPERINTENDENT [employer]IL WELL SERVICES Date: 09/04/2022 * Dorota Woodson, GENERAL STUDIES PROGRAM CHAIR - ORTHOTIC ASSISTANT - 09/04/2022 6:53 AM EDT Progress Note SUBJECTIVE: Patient seen for f/u of SBO (small bowel obstruction) ([facility]). He resting in bed no distress. NG to LIWS. Stated I'm fine ROS: Constitutional: negative for [...] Diagnostic Data: Complete Blood Count: Recent Labs 09/02/22193409/03/22 0732 09/04/22 0550 WBC 14.9* 11.5* 12.8* [...] MAKING: Primary Problem(s): SBO (small bowel obstruction) ([facility]) Differential diagnoses: Ileus Condition is a chronic [...] Vimpat Nutrition status: at risk for malnutrition [employer] consult initiated Hospital Prophylaxis: DVT: Lovenox Stress Ulcer: PPI Disposition: Shared decision making: All test results, treatment options and disposition options were discussed with the patient today Social determinants of health that may impact management: none Code status: Full Code Disposition: Discharge plan is home [facility] Advanced Care Planning documentation: [x] I have [...] SATISFY [facility] PERFORMANCE] Dorota Woodson APRN - OTONIEL , RAISA, SAFETY PATROL OFFICER-C Hospitalist Medicine 09/04/2022, 6:53 AM Associated attestation - Lyla Zepeda MD - 09/04/2022 8:43 PM EDT Images from the original note were not included. [address], [address] Attestation Patient: Amol Taylor Date of Admission: 09/02/2022 5:58 PM Hospital Day # 2 Date of Evaluation: 09/04/2022 I personally evaluated and examined the patient [id number] in conjunction with the PA/SAFETY PATROL OFFICER and agree with the management and dispostition of the patient. Please see the PA/SAFETY PATROL OFFICER's note for full details.My gee findings are: SUBJECTIVE: Patient seen for follow up of SBO (small bowel obstruction) (HCC). Patient seen and examined at thebed side [...] lesions. DATA: Complete Blood Count: Recent Labs 09/02/22193409/03/22 0732 09/04/22 0550 WBC 14.9* 11.5* 12.8* RBC 4.24 3.74* 3.39* HGB 13.7 12.1* 11.1* HCT 41.5 36.8* 33.4* MCV 97.9 98.4 98.5 RDW 13.1 13.2 13.2 PLT 245 206 170 Recent Labs 09/02/22193409/03/22 0732 09/04/22 0550 SEGS 86* 72* 79* NEUTROABS [...] with the plan as outlined in the SAFETY PATROL OFFICER/PA's note Disposition: Discharge plan is pending GS is following closely Obtain imaging as indicated Please note that this chart was generated using voice recognition [employer] dictation software. Although every effort was made to ensure the accuracy of this automated manager target, some errors in manager target may have occurred. Lyla Zepeda MD 09/04/2022 8:41 PM * Amarilys Nelson RCP - 09/04/2022 12:45 AM EDT Golf Course Designer asked to help suction pt. Pt coughs when asked and has a good cough. Golf Course Designer orally suctionedback of patient's mouth for some scant clear white secretions. Pt tolerated well. * Kathy Llamas RN - 09/04/2022 12:15 AM EDT Golf Course Designer at bedside at this time to perform [...] Llamas RN - 09/03/2022 6:45 PM EDT Golf Course Designer at chairside at this time to perform [...] 09/03/2022 11:59 AM EDT Physical Therapy Facility/Department: [facility] Physical Therapy Initial Assessment [...] time Social/Functional History Social/Functional History Lives With: (long term) Has the patient had two or more falls in the past year or any fall with injury in the past year?: No ADL Assistance: Needs assistance Ambulation Assistance: Needs assistance Transfer Assistance: Needs assistance Active Open Hearth Helper: No Additional Comments: Pt is a poor historian, however, per chart review and nursing, patient lives in long term, able to complete transfers and ambulation short [...] without Stair Climbing Raw Score : 12 (09/03/22 115) AM-PAC Inpatient without Stair Climbing T-Scale Score [...] Timed Code Treatment Minutes: 19 Minutes Crispin Cruz PT * Raya Tapia, OT - 09/03/2022 11:37 AM EDT Occupational Therapy Facility/Department: [facility] Occupational Therapy Initial Assessment [...] History Social/Functional History Lives With: Other (comment) (care home) Has the patient had two or more falls in the past year or any fall with injury in the past year?: No ADL Assistance: Needs assistance Ambulation Assistance: Needs assistance Transfer Assistance: Needs assistance Active Open Hearth Helper: No Additional Comments: Pt is a poor historian, however, per chart review patient lives in long term,able to complete transfers and ambulation short distances [...] 09/02/2022 11:14 PM EDT [facility] for SBO. NG tube in place on admission. Assessment and vital signs as charted. Pt denies pain at this time. Pt is alert and oriented x 3. Pt is from a long term. Navigator to be completed. Orders to be reviewed. Bed alarm on. Call light in reach. Will continue to monitor. [facility] Discharge instructions* Discharge Instr - JOYCE* [...] Contact Information Primary Emergency Contact: Susan Smith [facility] Relation: Legal Guardian Secondary Emergency Contact: [...] R56.9 MR (mental retardation), severe F72 Epilepsy ([facility]) G40.909 SBO (small bowel obstruction) ([facility]) K56.609 Mild malnutrition ([facility]) E44.1 Isolation/Infection: Isolation No Isolation Patient Infection [...] Dependent Dressing Dependent Toileting Dependent Feeding Assisted Cut Off Worker Dependent Med Delivery whole and prefers mixed [...] no caffeine Routes of Feeding: Oral Liquids: [place] Thick Liquids Daily Fluid Restriction: no Last [...] Readmission: 29 Discharging to Facility/ Agency Name: care home Address:[address] [place] [address] Fax: Dialysis Facility (if applicable) Name: Address: Dialysis Schedule: Phone: Fax: Crate Builder/Cash Application Clerk signature: PHYSICIAN SECTION Prognosis: {Prognosis:4475103708} Condition at Discharge: { Patient Condition:157132155} Rehab Potential (if transferring to Rehab): {Prognosis:4967615684} Recommended Labs or Other Treatments After Discharge: Physician Certification: I certify the above information and transfer of Amol Taylor is necessaryfor the continuing treatment of the diagnosis listed and that he requires long term for greater 30days. Update Admission H&P: {CHP DME Changes in HandP:997164498} PHYSICIAN SIGNATURE: {Esignature:249778752} [facility]2023 [place] [address] AMOL TAYLOR Date of : 1955 67 Years Male Attending Henrry MOELLER, Kari Mccollum Date of Admission 06/24/22 Date of Discharge [...] IV Piggyback, Onc (more content not included)... [facility]Result Comment: Electronically Signed By: Paula CONSTANTINO, Laney Jara\.br\Date and Time Signed: 06/27/22 11:43 EDT\.br\Electronically Co-Signed By: Kashif MOELLER, Leonel Tanner\.br\Date and Time Co- Signed: 06/27/22 15:45 [id number] NoteCRM entered the room to discuss dc planning. PCP, DME and insurance discussed. Patient is alert andinvolved in plan of care. Contact information provided and whiteboard updated. Pt will dc today perTrauma. Call to [facility] to let them know pt will need transport. Ra number given to RN and Dc RN. No further needs. ANt dc today. CRM to follow. CRM called and spoke to Korina because they want [facility] transport pt. CRM discussed that Medicaidwill not cover transport if pt is able to stand and pivot, which he is. This was explained to pt's nurse Leilani when CRM called back to relay information.[facility]Comment on above:Result Comment: Electronically Signed By: Mavis Eng\.br\Date and Time Signed: 06/27/22 12:01 [id number] Hospital Discharge instructions Patient Education 06/27/2022 11:07:19 [...] feel full. Avoid alcohol. General instructions Take humw-yti-kmreqcc and prescription medicines only as told by [...] provider. Document Revised: 08/31/2021 Document Reviewed: 08/31/2021 RAREFORM Patient Education 2022 [place]. Follow Up Care 06/23/2022 13:38:57 With:trauma clinic Address: [address] [place] [address] 3, second floor, [address] [place] [address]- [phone] When: only if needed Comments:Please call to make follow up appointment With:RAINER JAVIER Address: [address] [place] [id number] [facility] (1) When:1 to 2 weeks Comments:Call for followup appointment [facility]04-24-2023 Evaluation + Plan noteExtracted from: Title:Progress/SOAP Note [...] on weekends/holiday, please page the trauma/EGS attending preservationist. This patient's plan of care was discussed [...] Date:02/16/2023 10:15:00 AM Scheduled Provider:Yasmani CAMARA MD Location:[facility] Appointment Type:URO Office Visit [facility]04-24-2023 NotePT Evaluation done this date. Pt. with on AM-PAC this date. He is w/c bound and uses stand pivot transfers. He appears to be at his baseline this date with CGAx1 with activity. No further acutePT needs.[facility]04-23-2023 NoteAttempted OT evaluation at 0800, pt. refused to participate stating that he was tired, and told leandro block to return tomorrow. Will reattempt evaluation 06/26/22.[facility]04-23-2023 NotePT attempted evaluation however; pt refuses PT evaluation stating he is too tired. Will return at alater date.[facility] 06-24-2022 NoteACUTE CARE SURGERY CONSULT NOTE CHIEF COMPLAINT: bowel obstruction vs ileus HISTORY OF PRESENT ILLNESS: 67 y/o male with hx of epilepsy with vagal nerve stimulator and developmental delay presents as a transfer due to family request from [facility]. He has history of prior surgery with lysis of adhesins and retrorectus hernia repair for bowel obstruction due to adhesions within the ventral hernia on 06/14/[address] Rivera. He had been admitted on 06/21/2022 to [facility] withpossible bowel obstruction. Notably, he has had two prior admissions - one 05/09-05/11/2022 and other on 06/12-06/14/2022 - also at [facility] for a similar problem. Prior CT scans [...] [facility]. Today, he [...] his family. His family requested transfer to [facility] because they state surgery had been mentioned as a possibility and they wanted him here. Per report from family and physician caring for him at [facility]- he always has diarrhea stools during [...] Diabetes mellitus type 2 (more content not included)...[facility]Result Comment: Electronically Signed By: Henrry MOELLER, Kari Mccollum\.br\Date and Time Signed: 06/24/22 16:10 [id number] NoteOT orders received and chart reviewed. OT consulted with nursing. Hold OT evaluation, as there is no order to clamp his NG tube for pt to participate in therapies. Plan to return tomorrow, 06/25/22, to perform evaluation once NG tube can be clamped.[facility] 06-24-2022 NotePT orders received and chart reviewed. PT spoke with nursing and nursing would like PT to hold evaluation as there is no order to clamp his NG tube for pt to participate in PT. Will return tomorrow to perform evaluation once NG tube can be clamped.[facility]04-22-2023 History of Present illness Narrative* Daiana Mercado RN - 06/24/2022 12:41 AM EDT Called [facility] and gave report to nurse who will [...] and other personal belongings sent with patient. Golf Course Designer to call [facility]. * Daiana [...] sister with Eta of midnight * Jose Ray MD - 06/23/2022 4:15 PM EDT Physician Progress Note PATIENT: AMOL TAYLOR CSN #: [id number] : 1955 ADMIT DATE: 06/21/2022 11:47 AM DISCH DATE: RESPONDING PROVIDER #: Jose Ray MD QUERY TEXT: Patient admitted with small [...] MR (mental retardation), severe Clinical Indicators: from long term, Per H&P: has MRDD and unable to provide details... Awake, alert and pleasant Treatment: standard safety measures, fall risk interventions, assistance with mobility Annika Casillas, MSN, RN, CCDS, CRCR Clinical Flight Test Shop Mechanic [phone] Options provided: -- Borderline intellectual disabilities -- [...] 06/22/2022 2:36 PM Electronically signed by: Jose Ray MD 06/23/2022 4:14 PM * Yennifer El - 06/23/2022 3:35 PM EDT Golf Course Designer spoke with patients sister. Updated her about transfer. * Yennifer El - 06/23/2022 3:17 PM EDT Golf Course Designer attempted to call patients guardian, no answer and no voicemail available. * RAISA Mejia CNP - 06/23/2022 3:04 PM EDT I attempted to call back and speak to Susan Smith, Legal Guardian to update her on the acceptance to [facility] and awaiting Transport as he has a bed assignment there, however she did not answer and her Voicemail box was full. I did speak with her in the morning and her request was to go to [facility] to the surgeons that have treated him before. Dorota Woodson APRN - OTONIEL * SHANTI Camacho - 06/23/2022 11:06 AM EDT Occupational Therapy Facility/Department: [facility] SURG Daily Treatment Note NAME: [...] 06/23/2022 10:19 AM EDT Patient removed NG. Golf Course Designer notified Dorota FREDERICK and gabriel to leave out. Will try clear liquids * RAISA Mejia CNP - 06/23/2022 8:45 AM EDT Progress Note SUBJECTIVE: Patient seen for f/u of SBO (small bowel obstruction) ([facility]). He resting in bed no [...] IV Keppra, Vimpat Nutrition status: obesity, non-morbid Master Yacht consult initiated Hospital Prophylaxis: DVT: Lovenox Stress Ulcer: H2 Ginette Disposition: Shared decision making: All test results, treatment options and disposition options were discussed with the patient today Social determinants of health that may impact management: MRDD Code status: Full Code Disposition: Discharge plan is home [facility] Advanced Care Planning documentation: [x] I have [...] the patient's medical record. [DOES NOT SATISFY [facility] PERFORMANCE] Dorota Woodson APRN - OTONIEL , GENERAL STUDIES PROGRAM CHAIR, SAFETY PATROL OFFICER-C Hospitalist Medicine 06/23/2022, 8:46 AM Associated attestation - Jose Ray MD - 06/23/2022 4:25 PM EDT Attending Supervising Physician s Attestation Statement I have personally evaluated and examined the patient [id number] in conjunction with the nurse practitioner. I [...] Examined and Reviewed plan of care with SAFETY PATROL OFFICER. Directions and discussion about care and plans. [...] with the patient. Electronically signed by Jose Ray MD * Yennifer El - 06/23/2022 6:[address] ray notified of patient large BM last night. Wants to confirm that NG is in correct placement,repeat xray. If placement is correct, Dr Ray would like patients NG clammed and to try clear liquids. * Yennifer El - 06/23/2022 6:30 AM EDT Patient resting in bed with eyes closed, easily awoken. Denies pain. NG connected to low intermittent suction. VS obtained by student RN and reviewed by junior underwriter. Patients brief dry at this time. Will [...] muscle mass loss Fluid Accumulation: Mild Extremities Curer Acid Drum Strength: Not Performed Nutrition Assessment: Moderate malnutrition [...] presented two weeks ago for SBO, from [facility]. Current diet at facility is [facility] soft foods, no caffeine, limit greasy foods, toasted bread only, yogurt daily, and raw fruits. Intakes unknown fromcility. Will monitor NPO duration and GI sx. [...] Anthropometric Measures: Height: 5' 6 (167.6 cm) [place] Body Weight (IBW): 142 lbs (65 kg) [...] Used for Energy Requirements: Current Energy (kcal/day): 0668-5031 (20-25 k/kcal) Weight Used for Protein Requirements: [place] Protein (g/day): 84-96 (1.3-1.5g/kg) Method Used for Fluid Requirements: 1 ml/kcal Fluid (ml/day): 2049mL Nutrition Diagnosis: Moderate malnutrition related to altered [...] Planning: Continue current diet Radha Christina Contact: [phone] * Jeremy Izquierdo RN - 06/22/2022 7:00 [...] at this time. documented in this encounterBON Simplicita Software Phone: 1(897) 846-957204-21-2023 Hospital course Narrative* Dorota Ana Woodson APRN - ORTHOTIC ASSISTANT - 06/23/2022 3:10 PM EDT Discharge Summary Amol Taylor : 1955 Admit date: 06/21/2022 Discharge date: 06/23/2022 Admitting Physician: Jose Ray MD Discharge Diagnoses: Principal Problem: SBO (small bowel obstruction) (HCC) Active Problems: Moderate malnutrition (HCC) Resolved Problems: * No resolved hospital problems. * Hospital Course: Amol Taylor is a 67 y.o. male admitted with SBO. He presented to the ER from long term due to vomiting and diarrhea. No melena or hematochezia Patient has MRDD and unable to provide details. During his evaluation in ER he was found to have SBO and admitted with permission of [facility] Surgery. NG was placed to LIWS and large amount of output was seen. This admission will make 3 hospitalizations since May for the same thing. Small bowel follow through was completed and abdominal films monitored. General Surgery consulted. Patient continued to have obstruction. I did speak to [facility] per the Request of his [...] Problem List Diagnosis Date Noted Moderate malnutrition (HCC) 06/22/2022 SBO (small bowel obstruction) ([facility]) 06/21/2022 Epilepsy ([facility]) 12/14/2015 MR (mental retardation), severe 10/20/2013 Small bowel obstruction (HCC) 10/18/2013 Seizures (HCC) Chronic 10/18/2013 Discharge Medications: Medication List ASK [...] applicable) JASON/ARB in CHF: NA Statin in OR: NA ASA in OR: NA Statin in CVA: NA Antiplatelet in CVA: NA Total time spent on discharge services: 40 minutes Including the following activities: Evaluation and Management of patient Discussion with patient and/or surrogate about current care plan Coordination with Case Management and/or Cash Application Clerk Coordination of care with Consultants (if applicable) Coordination of care with Receiving Facility Physician (if applicable) Completion of DME forms (if applicable) Preparation of Discharge Summary Preparation of Medication Reconciliation Preparation of Discharge Prescriptions Signed: Dorota Woodson, GENERAL STUDIES PROGRAM CHAIR - ORTHOTIC ASSISTANT, GENERAL STUDIES PROGRAM CHAIR, SAFETY PATROL OFFICER-C 06/23/2022, 3:11 PM Associated attestation - Jose Ray MD - 06/23/2022 4:30 PM EDT Attending Supervising Physician s Attestation Statement I have personally evaluated and examined the patient [id number] in conjunction with the nurse practitioner. I [...] Examined and Reviewed plan of care with SAFETY PATROL OFFICER. Directions and discussion about care and plans. [...] with the patient. Electronically signed by Jose Ray MD documented in this encounterBON [employer]plicita Software Phone: [phone]) 829-764803-10-2023 History of Present illness Narrative* Anais Addison RN - 05/12/2022 6:51 PM EST Transport arrived to get patient. Belongings and paperwork were sent with the transport team. Golf Course Designer checked the locked cupboard and cabinet for personal belongings. Report was given to transport andpatient is headed out at this time. * Yolanda Pope RN - 05/12/2022 5:15 PM EST Received call from trustedsafeJeanmarielu will be here to pick pt up at 1815. Called Leilani with long term and updated her. * Yolanda Pope RN - 05/12/2022 4:57 PM EST Received call from [employer]. ETA is now 2200. Will update long term and nursing supervisor product inspection. * Yolanda Pope RN - 05/12/2022 2:05 PM EST Pericare provided. * KRYSTIN Farley - 05/12/2022 12:03 PM EST Patient is discharge back to the long term today. The sister is aware of the discharge and good with the discharge today. The long term is also aware of the discharge. He will go by ambulance back to long term. KRYSTIN Farley * Yolanda Pope RN - 05/12/2022 10:37 AM EST Spoke to Dorota FREDERICK, pt is going to be discharged today. Okay to restart pts oral Vimpat and Keppra. * Yolanda Ppoe RN - 05/12/2022 9:59 AM EST Called [...] pt needs IV will have nursing supervisor product inspection attempt IV start. * Yolanda Pope RN - 05/12/2022 8:00 AM EST Assisted pt with eating breakfast. Pt started to feed self. Will assess pts level of assistance needed with each meal. * Yolanda Pope RN - 05/12/2022 7:44 AM EST Golf Course Designer to bedside to complete morning assessment. Upon entry to room, pt sitting up in bed, respirations even while on room air. Vitals obtained and assessment completed by Gayatri CHENG precepting with this nurse, see flow sheet for details. Pt denies needs from junior underwriter at this time. Call light in reach. Bed alarm active. Care ongoing. * RAISA Mejia CNP - 05/12/2022 7:10 AM EST Progress Note [...] Treatment plan: Consultation: General surgery Imaging: Jennifer CHARISSE-No obstruction Medications: Stop IV fluids IV Protonix Medication Monitoring / High Risk Medications: none NG All bowel follow-through with Gastrografin today Up to chair Seizure disorder Condition is a chronic stable condition Treatment plan: Continue current treatment Imaging: no further imaging studies ordered today Medications: IV Keppra IV Vimpat Nutrition status: Well developed, well nourished with no malnutrition Master Yacht consult initiated Hospital Prophylaxis: DVT: Lovenox Stress Ulcer: Disposition: Shared decision making: All test results, treatment options and disposition options were discussed with the patient today Social determinants of health that may impact management: Resides in Long-Term Code status: Full Code Disposition: Discharge plan is pending [facility] Advanced Care Planning documentation: [x] I have [...] SATISFY MIPS PERFORMANCE] Dorota Woodson APRN - ORTHOTIC ASSISTANT , GENERAL STUDIES PROGRAM CHAIR, SAFETY PATROL OFFICER-C Hospitalist Medicine 05/12/2022, 7:10 AM * Keyanna [...] Coffey RN - 05/11/2022 5:07 PM EST Golf Course Designer spoke with Dr. Patel at this time for order to pull pt's NG tube and place on clear liquid diet. * Cydney Coffey RN - 05/11/2022 3:02 PM EST Golf Course Designer got report from another RN on floor that pt has a seizure implant device on his right side by his armpit. Pt has device/ magnet in locked cabinet. * Cydney Coffey RN - 05/11/2022 1:24 PM EST Golf Course Designer to bedside to complete afternoon assessment. Upon [...] this time. Pt denies further needs from junior underwriter at this time. Call light in reach. Care ongoing. * Cydney Coffey RN - 05/11/2022 12:49 PM EST Golf Course Designer completed straight cath at this time. Pt tolerated well. Output was 400ml. Pt also was incontinent of bowel at this time and cleaned with MILLER Chavez at this time. * Kathy Ospina - 05/11/2022 10:43 AM EST Patient unable to void, bladder scan 398, dorota salter notified * Cydney Coffey RN - 05/11/2022 9:52 AM EST Golf Course Designer spoke with Pharmacy at this time about pt's ATB not scanning in the MAR with partial dose and Pharmacy said to override the medication in the system. * Cydney Coffey RN - 05/11/2022 7:43 AM EST Golf Course Designer to bedside to complete morning assessment. Upon [...] at this time. Pt denies needs from junior underwriter at this time. Call light in reach. Care ongoing. * Dorota Woodson APRN - OTONIEL - 05/11/2022 7:19 AM EST Progress Note [...] stable Treatment plan: Consultation: General surgery Imaging: Dalily KUB-No obstruction Medications: IV fluids IV Protonix Medication Monitoring / High Risk Medications: none NG All bowel follow-through with Gastrografin today Up to chair Seizure disorder Condition is a chronic stable condition Treatment plan: Continue current treatment Imaging: no further imaging studies ordered today Medications: IV Keppra IV Vimpat Nutrition status: Well developed, well nourished with no malnutrition Master [place]acht consult initiated Hospital Prophylaxis: DVT: Lovenox Stress Ulcer: Disposition: Shared decision making: All test results, treatment options and disposition options were discussed with the patient today Social determinants of health that may impact management: Resides in Long-Term Code status: Full Code Disposition: Discharge plan is pending [facility] Advanced Care Planning documentation: [x] I have [...] the patient's medical record. [DOES NOT SATISFY [facility] PERFORMANCE] Dorota Woodson APRN - OTONIEL , GENERAL STUDIES PROGRAM CHAIR, SAFETY PATROL OFFICER-[facility] 05/11/2022, 7:19 AM Associated attestation - Becca Patel MD - 05/11/2022 4:54 PM EST Attestation 05/11/22 Becca Patel MD Patient: Amol Taylor Date of Admission: 05/08/2022 10:46 PM Hospital Day # 2 Date of Evaluation: 05/11/2022 I personally evaluated and examined the patient [id number] in conjunction with the SAFETY PATROL OFFICER and agree with the management and dispostition of the patient. Please see SAFETY PATROL OFFICER's progress note for full details. My gee [...] if okay start clear liquids Becca Patel MD , M.D. 05/11/2022 4:53 PM * Usama Coffey RN - 05/11/2022 1:15 AM EST Golf Course Designer at bedside for shift assessment. Patient is [...] and alarm engaged to promote patient safety. Golf Course Designer encourages patient to use call light for [...] continue to monitor this shift. * Dorota Woodson, GENERAL STUDIES PROGRAM CHAIR - ORTHOTIC ASSISTANT - 05/10/2022 7:57 AM EST Progress Note [...] Diagnostic Data: Complete Blood Count: Recent Labs 05/08/22232905/09/2252405/10/22 0535 WBC 14.9* 12.7* 13.4* RBC 4.40 4.41 3.55* HGB 14.9 14.8 12.0* HCT 43.1 43.7 35.9* MCV 98.0 99.1 101.1 MCH 33.9* 33.6* 33.8* MCHC 34.6 33.9 33.4 RDW 12.9 12.9 13.1 PLT 305 285 170 MPV 9.2 9.3 9.2 Last 3 Blood Glucose: Recent Labs 05/08/22232905/09/2225 05/10/22 0535 GLUCOSE 125* 120* 108* Comprehensive Metabolic Profile: Recent Labs 05/08/22232905/09/22 0525 05/10/22 0535 NA 139 143 145* [...] Well developed, well nourished with no malnutrition Master Yacht consult initiated Hospital Prophylaxis: DVT: Lovenox Stress Ulcer: Disposition: Shared decision making: All test results, treatment options and disposition options were discussed with the patient today Social determinants of health that may impact management: Resides in Long-Term Code status: Full Code Disposition: Discharge plan is pending [facility] Advanced Care Planning documentation: [x] I have [...] the patient's medical record. [DOES NOT SATISFY [facility] PERFORMANCE] Dorota Woodson APRN - OTONIEL , RAISA, SAFETY PATROL OFFICER-C [facility] Medicine 05/10/2022, 7:57 AM Associated attestation - Becca Patel MD - 05/10/2022 2:23 PM EST Attestation 05/10/22 Becca Patel MD Patient: Amol Taylor Date of Admission: 05/08/2022 10:46 PM Hospital Day # 1 Date of Evaluation: 05/10/2022 I personally evaluated and examined the patient [id number] in conjunction with the SAFETY PATROL OFFICER and agree with the management and dispostition of the patient. Please see SAFETY PATROL OFFICER's progress note for full details. My gee [...] RN - 05/09/2022 3:30 PM EST Rizwan SAFETY PATROL OFFICER at bedside. * Rossi Butts RN - 05/09/2022 9:36 AM EST Golf Course Designer contacted Dr. Conde office and gave consult. * Rinku Montalvo RD, NNEKA - 05/09/2022 8:23 AM EST Comprehensive Nutrition [...] loss Fluid Accumulation: No significant fluid accumulation Curer Acid Drum Strength: Not Performed Nutrition Assessment: Inadequate nutrient intakes r/t altered GI status, AEB NPO and NGT suction. 2950 ml out initially, but only 50 ml out since canister replaced overnight. Uncertain weight history, with losses from historical values noted. Likely has had acute losses with vomiting and loose bm pilot captain (question the 199# admission weight vs 180# now). Is without visual malnutrition indices which may accompany singnificant weight losses. Ca++ mildly elevated and would ? volume deficit vs. over-supplmentation (on Ca++ supps pilot captain). History or low vit D, on supplement pilot captain. Asleep with NGT in place. Nutrition Related Findings: lower lean body mass. hypoactive b/s. Wound Type: None Current Nutrition Intake & Therapies: Average Meal Intake: NPO Average Supplements Intake: NPO Diet NPO Anthropometric Measures: Height: 5' 6 (167.6 cm) [place] Body Weight (IBW): 142 lbs (65 kg) [...] Used for Energy Requirements: Current Energy (kcal/day): 2528-4859 (18-22) Weight Used for Protein Requirements: [place] Protein (g/day): 77-90 (1.2-1.4) Method Used for [...] Too soon to determine Rinku Montalvo RD, LD Contact: [phone] * Rossi Butts RN - 05/09/2022 7:15 [...] at low intermittent suction. Patient is from [facility] and he states that he uses a wheelchair to get around. Patient assisted with getting comfortable in bed. Patient states no further needs, call light is in reach, will continue to monitor. documented in this encounterBON BANNER OCOTILLO MEDICAL CENTERGreenscreen Animals Phone: 1(594) 570-100103-10-2023 Hospital course Narrative* Dorota Woodson, RAISA - OTONIEL - 05/12/2022 11:08 AM EST Discharge Summary Amol Taylor : 1955 Admit date: 05/08/2022 [...] presented to the emergency room from the long term due to vomiting. Patient has history of [...] to discharge patient today back to his long term. Consultants: Dr. Corona, general surgery Procedures: none [...] obstruction (HCC) / Operation 10-19-2013 10/18/2013 Seizures ([facility]) Chronic 10/18/2013 Discharge Medications: Medication List START [...] These medications were sent to [id number] - [place], [place] - [address] [facility] [phone] [place] [phone] polyethylene glycol 17 g packet Patient Instructions: Activity: activity as tolerated Diet: regular diet Wound Care: none needed Other: None Disposition: Discharge to Home Follow up: Patient will be followed by Carson Matamoros MD in 1-2 weeks CORE MEASURES on Discharge (if applicable) JASON/ARB in CHF: NA Statin in OR: NA ASA in OR: NA Statin in CVA: NA Antiplatelet in CVA: NA Total time spent on discharge services: 40 minutes Including the following activities: Evaluation and Management of patient Discussion with patient and/or surrogate about current care plan Coordination with Case Management and/or Cash Application Clerk Coordination of care with Consultants (if applicable) Coordination of care with Receiving Facility Physician (if applicable) Completion of DME forms (if applicable) Preparation of Discharge Summary Preparation of Medication Reconciliation Preparation of Discharge Prescriptions Signed: Dorota Woodson APRN - OTONIEL, RAISA, SAFETY PATROL OFFICER-C 05/12/2022, 11:08 AM Associated attestation - Becca Patel MD - 05/12/2022 1:06 PM EST I personally evaluated and examined the patient face to face in conjunction with the APC and agree with the management and disposition of the patient. My gee findings are: Patient ID: Amol Taylor [id number] Admission date: 05/08/2022 Discharge date: 05/12/2022 Admitting Physician: Becca Patel MD Primary Care Physician: Carson Matamoros MD Primary Discharge Diagnoses: Patient Active Problem List Diagnosis Date Noted Epilepsy (HCC) 12/14/2015 MR (mental retardation), severe 10/20/2013 Small bowel obstruction (HCC) / Operation 10-19-2013 10/18/2013 Seizures (HCC) Chronic 10/18/2013 Additional Diagnoses: Diagnosis Date MR (mental retardation) Seizures (HCC) Ventral hernia Review of Systems: Constitutional: negative [...] presented to the emergency room from the long term due to vomiting. Patient has history of small bowel obstructions and in 2014 required surgery to resolve. He is also [...] be to discharge patient today backto his long term. Consultants: Gen surgery Procedures: none Complications: none [...] # 1.30 1.10 - 3.70 k/uL Absolute [place] # 0.58 0.10 - 1.20 k/uL Absolute [...] # 1.88 1.10 - 3.70 k/uL Absolute [place] # 1.00 0.10 - 1.20 k/uL Absolute [...] # 1.45 1.10 - 3.70 k/uL Absolute Prowers # 0.87 0.10 - 1.20 k/uL Absolute [...] # 1.27 1.10 - 3.70 k/uL Absolute Prowers # 0.98 0.10 - 1.20 k/uL Absolute [...] Your Medications These medications were sent to [id number] - [place], [place] - [address] [facility] - [phone]- [phone] [address] [facility] [address] polyethylene glycol 17 g packet Resume all [...] Patel MD MD [facility] [employer] Work Phone: [phone] 388-563803-10-2023 Hospital Discharge instructions* Discharge Instr - JOYCE* [...] Contact Information Primary Emergency Contact: Susan Smith [facility] Relation: Legal Guardian Secondary Emergency Contact: [...] Dependent Toileting Dependent Feeding Assisted at times Cut Off Worker Dependent Med Delivery whole we were mixing [...] Readmission: 8 Discharging to Facility/ Agency Name: care home Address:[address] [place] [address] Phone: Fax: Dialysis Facility (if applicable) Name: Address: Dialysis Schedule: Phone: Fax: Crate Builder/Cash Application Clerk signature: PHYSICIAN SECTION Prognosis: {Prognosis:3457360167} Condition at Discharge: { Patient Condition:167161035} Rehab Potential (if transferring to Rehab): {Prognosis:3899750090} Recommended Labs or Other Treatments After Discharge: Physician Certification: I certify the above information and transfer of Amol Taylor is necessaryfor the continuing treatment of the diagnosis listed and that he requires Intermediate/Mental Retardation/Developmental Disabilities Care for greater 30 days. Update Admission H&P: {CHP DME Changes in HandP:923868423} PHYSICIAN SIGNATURE: {Esignature:282063847} documented in this encounterBON [employer] Phone: [phone] 359-336805-03-2022 Hospital Discharge instructions Patient Education 07/05/2021 13:11:32 [...] including vitamins, herbs, eye drops, creams, and rdfl-fpq-rljfjvq medicines. Any problems you or family members [...] provider tells you to take them. ?Taking nlra-zoh-moxwtmv medicines, vitamins, herbs, and supplements. You may [...] 07/24/2011 Document Revised: 07/24/2019 Document Reviewed: 07/24/2019 Elsevier Patient Education 2020 [employer] Follow Up Care 06/11/2021 15:29:21 With:trauma clinic Address: [address] [place] [address] 3, second floor, [address] [place] [address]- [phone] When:1 week Comments:Follow with surgery clinic on Sunday07/08/21 for wound check. [facility]05-01-2022 Evaluation + Plan noteExtracted from: Title:ACS Progress/SOAP [...] discharge when SNF available. He lives in long term and current wound care/monitored meals is too extensive for his usual long term at this time Extracted from: Title:Progress/SOAP Note Author:Henrry MOELLER, Mary Mccollum Date:07/02/21 1. Small bowel obstruction ( K56.609: [...] from: Title:Progress/SOAP Note Author:Henrry MOELLER, Mary Mehta. Date:06/30/21 1. Small bowel obstruction ( K56.609: [...] for recurrent bowel obstructions - Regular diet; GROUP CIO eval due to concern for aspiration. Transitioned [...] home meds [2] Extracted from: Title:Progress/SOAP Note Author:Paula CONSTANTINO, Jesus Manuel Jara Date:06/29/21 1. Small bowel obstruction ( K56.609: [...] Continue home meds Laney Mitchell PA-C Ext: [phone], available Sunday-Sunday 8am-4pm Trauma Surgery/Surgical Critical Care/Acute Care Surgery *For urgent issues arising after 4PM during the week or on weekends/holiday, please page the trauma/acute care surgery attending preservationist. This patient's plan of care was discussed [...] from: Title:Progress/SOAP Note Author:Paula CONSTANTINO, Jesus Manuel Jara Date:06/28/21 1. Small bowel obstruction ( K56.609: [...] Continue home meds Laney Mitchell PA-C Ext: [phone], available Sunday-Sunday 8am-4pm Trauma Surgery/Surgical Critical Care/Acute Care Surgery *For urgent issues arising after 4PM during the week or on weekends/holiday, please page the trauma/acute care surgery attending preservationist. This patient's plan of care was discussed with Trauma/Surgery Floor attending, Dr. Sales Physician Note: I have personally performed a face to face diagnostic evaluation on this patient. I have reviewed and agree with the care plan. Kari Sales MD Trauma Animal Trainer Supervisor /[facility] Trauma and Emergency General Surgery Extracted from: Title:Progress/SOAP Note Author:Jesus Manuel Mitchell PA-C Date:06/27/21 1. Small bowel obstruction ( K56.609: [...] Continue home meds Laney Mitchell PA-C Ext: [phone], available Sunday-Sunday 8am-4pm Trauma Surgery/Surgical Critical Care/Acute Care Surgery *For urgent issues arising after 4PM during the week or on weekends/holiday, please page the trauma/acute care surgery attending preservationist. This patient's plan of care was discussed [...] Remain on RNF Laney Mitchell PA-C Ext: [phone], available Sunday-Sunday 8am-4pm Trauma Surgery/Surgical Critical Care/Acute Care Surgery *For urgent issues arising after 4PM during the week or on weekends/holiday, please page the trauma/acute care surgery attending preservationist. This patient's plan of care was discussed with Trauma/Surgery Floor attending, Dr. Pantoja Extracted from: Title:Progress/SOAP Note Author:Paula CONSTANTINO, Jesus Manuel Jara Date:06/23/21 1. Small bowel obstruction ( K56.609: [...] Remain on RNF Laney Mitchell PA-C Ext: [phone], available Sunday-Sunday 8am-4pm Trauma Surgery/Surgical Critical Care/Acute Care Surgery *For urgent issues arising after 4PM during the week or on weekends/holiday, please page the trauma/acute care surgery attending preservationist. This patient's plan of care was discussed [...] Remain on RNF Laney Mitchell PA-C Ext: [phone], available Sunday-Sunday 8am-4pm Trauma Surgery/Surgical Critical Care/Acute Care Surgery *For urgent issues arising after 4PM during the week or on weekends/holiday, please page the trauma/acute care surgery attending preservationist. This patient's plan of care was discussed [...] Remain on RNF Laney Mitchell PA-C Ext: [phone], available Sunday-Sunday 8am-4pm Trauma Surgery/Surgical Critical Care/Acute Care Surgery *For urgent issues arising after 4PM during the week or on weekends/holiday, please page the trauma/acute care surgery attending preservationist. This patient's plan of care was discussed with Trauma/Surgery Floor attending, Dr. Pantoja Extracted from: Title:Progress/SOAP Note Author:Henrry MOELLER, Mary Mccollum Date:06/19/21 1. Small bowel obstruction ( K56.609: [...] sister, pre-cert needed - May transfer to [facility] with telemetry Extracted from: Title:Progress/SOAP Note Author:Mary Sales MD Date:06/18/21 1. Small bowel obstruction ( K56.609: [...] rehab Extracted from: Title:Progress/SOAP Note Author:Mary Sales MD Date:06/17/21 1. Small bowel obstruction ( K56.609: [...] to closely monitor. Extracted from: Title:Progress/SOAP Note Author:Jesus Manuel Mitchell PA-C Date:06/15/21 1. Small bowel obstruction ( K56.609: [...] high risk decompensation Laney Mitchell PA-C Ext: [phone], available Sunday-Sunday 8am-4pm Trauma Surgery/Surgical Critical Care/Acute Care Surgery *For urgent issues arising after 4PM during the week or on weekends/holiday, please page the trauma/acute care surgery attending preservationist. This patient's plan of care was discussed with Trauma/Surgery Floor attending, Dr. Sales Physician Note: I have personally performed a face to face diagnostic evaluation on this patient. I have reviewed and agree with the care plan. Kari Sales MD Trauma Animal Trainer Supervisor [facility] Trauma and Emergency General Surgery Extracted from: Title:Post-anesthesia - General Author:Alvaro Last DO Date:06/14/21 Plan Transfer/ Discharge: Condition stable. Extracted from: Title:Pre-anesthesia - Adult Author:[place] Blanco Jr., DO Date:06/14/21 Plan [place] [employer] Anesthesiologists (ASA) physical status classification: [...] tomorrow am (06/14/21) Laney Mitchell PA-C Ext: [phone], available Sunday-Sunday 8am-4pm Trauma Surgery/Surgical Critical Care/Acute Care Surgery *For urgent issues arising after 4PM during the week or on weekends/holiday, please page the trauma/acute care surgery attending preservationist. This patient's plan of care was discussed [...] contrast due to patient's elevated lactate at [employer] which has improved upon this presentation. He [...] for DVT prophylaxis. Extracted from: Title:ED Note Author:Mendoza Robledo PA-C te:06/11/21 1. Small bowel obstruction ( K56.609: [...] Date:02/13/2022 10:30:00 AM Scheduled Provider:Yasmani CAMARA MD Location:[facility] Appointment Type:URO Office Visit Future Scheduled Tests Laboratory* Basic Metabolic Panel 06/24/21 * Basic Metabolic Panel 06/24/21 * CBC w/ Auto Diff 06/24/21 * CBC w/ Auto Diff 06/24/21 [facility]08-17-2014 Evaluation note* Diagnosis Small bowel obstruction (HCC) / Operation 10-19-2013- Primary Unspecified intestinal obstruction Small bowel obstruction (HCC) Unspecified intestinal obstruction Acute kidney injury (HCC) Acute kidney failure, unspecified History of seizure disorder Personal history of other disorders of nervous system and sense organs Seizures (HCC) Chronic Other convulsions MR (mental retardation), severe Severe intellectual disabilities documented in this encounter [facility] [employer] Phone: evaluation + Plan note Future Appointments Appointment Date:02/13/2022 10:30:00 AM Scheduled Provider:Yasmani CAMARA MD Location:[facility] Appointment Type:URO [facility] Future Appointments Appointment Date:07/15/2021 09:30:00 AM Scheduled Provider: [facility] Type:Trauma Initial Follow Up (FT) Appointment Date:02/13/2022 10:30:00 AM Scheduled Provider:Yasmani CAMARA MD Location:[facility] Appointment Type:URO Office Visit Future Scheduled Tests Laboratory* Basic Metabolic Panel 06/24/21 * Basic Metabolic Panel 06/24/21 * CBC w/ Auto Diff 06/24/21 * CBC w/ Auto Diff 06/24/21 [facility] Future Appointments Appointment Date:07/29/2021 09:45:00 AM Scheduled Provider: [facility] Type:Trauma Initial Follow Up (FT) Appointment Date:02/13/2022 10:30:00 AM Scheduled Provider:Yasmani CAMARA MD Location:[facility] Appointment Type:URO Office Visit Future Scheduled Tests Laboratory* Basic Metabolic Panel 06/24/21 * Basic Metabolic Panel 06/24/21 * CBC w/ Auto Diff 06/24/21 * CBC w/ Auto Diff 06/24/21 [facility] Future Appointments Appointment Date:08/12/2021 10:00:00 AM Scheduled Provider: [facility] Type:Trauma Initial Follow Up (FT) Appointment Date:02/13/2022 10:30:00 AM Scheduled Provider:Yasmani CAMARA MD Location:[facility] Appointment Type:URO Office Visit Future Scheduled Tests Laboratory* Basic Metabolic Panel 06/24/21 * Basic Metabolic Panel 06/24/21 * CBC w/ Auto Diff 06/24/21 * CBC w/ Auto Diff 06/24/21 [facility] Future Appointments Appointment Date:09/01/2021 10:00:00 AM Scheduled Provider: [facility] Type:Trauma Initial Follow Up (FT) Appointment Date:02/13/2022 10:30:00 AM Scheduled Provider:Yasmani CAMARA MD Location:[facility] Appointment Type:URO Office Visit Future Scheduled Tests Laboratory* Basic Metabolic Panel 06/24/21 * Basic Metabolic Panel 06/24/21 * CBC w/ Auto Diff 06/24/21 * CBC w/ Auto Diff 06/24/21 [facility] Future Appointments Appointment Date:02/13/2022 10:30:00 AM Scheduled Provider:Yasmani CAMARA MD Location:[facility] Appointment Type:URO Office Visit Future Scheduled Tests Laboratory* Basic Metabolic Panel 06/24/21 * Basic Metabolic Panel 06/24/21 * CBC w/ Auto Diff 06/24/21 * CBC w/ Auto Diff 06/24/21 [facility]* Diagnosis Seizure (HCC)- Primary Other convulsions documented in this encounter [facility] [employer] Phone: evaluation note* Diagnosis SBO (small bowel obstruction) (HCC)- Primary Unspecified intestinal obstruction SBO (small bowel obstruction) (HCC) Unspecified intestinal obstruction Moderate malnutrition (HCC) Malnutrition of moderate degree documented in this encounter [facility] [employer] Phone: evaluation note* Diagnosis SBO (small bowel [...] of mild degree documented in this encounter [facility] [employer] HEALTHEvaluation note* Diagnosis SBO (small bowel obstruction) (CMS-HCC)- Primary Unspecified intestinal obstruction SBO (small bowel obstruction) (CMS-HCC) Unspecified intestinal obstruction Seizure disorder (CMS-HCC) 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 of intractable epilepsy documented in this encounter [facility]* Diagnosis Small bowel obstruction (HCC)- Primary Unspecified intestinal obstruction Seizures (HCC) Chronic Other convulsions MR (mental retardation), severe Severe intellectual disabilities Epilepsy (HCC) 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 of intractable epilepsy AFTAB (obstructive sleep apnea) Obstructive sleep apnea (adult) (pediatric) Seizure-like activity (HCC) Other convulsions documented in this encounter [facility] [employer] [facility] course Narrative No data available for this section [facility] Dis[facility] instructions No data available for this section [facility] Discharge instructions* Attachments The following attachments cannot be sent through Care Everywhere. * Seizure (Slovak) [facility] [employer] Phone: Hospital Discharge instructionsNot on filedocumented in this encounterProLima Memorial Hospital SystemInstructionsNot on filedocumented in this encounterProLima Memorial Hospital SystemProgress note No data available for this section [facility] Summary Purpose Family History No Family History Records FoundNo Family History Records FoundNo Family History Records FoundNo Family History Records FoundNo Family History Records FoundNo Family History Records FoundNo Family History Records FoundNo Family History Records Found No data available for this section No Family History Records FoundNo Family History Records FoundNo Family History Records Found Advance Directives No Advanced Directives Records FoundDocuments on File Type Date Recorded Patient Checker In Expl anation Advance Directives and Living Will Power of Cooling Tower Technician Latest Code Status on File Code Status Date Activated Date Inactivated Comments Full Code 12/14/2015 1:45 PM 12/15/2015 2:04 PM Full Code 10/17/2013 11:29 PM 11/06/2013 2:52 PM Documents on File Type Date Recorded Patient Checker In Expl anation ACP-Advance Directive ACP-Power of Cooling Tower Technician Documents on File Type Date Recorded Patient Checker In Expl anation ACP-Advance Directive 05/09/2022 2:31 PM Le tter of Guardianship Latest Code Status on File Code Status Date Activated Date Inactivated Comments Full Code 05/09/2022 3:18 AM Full Code 12/14/2015 1:45 PM 12/15/2015 2:04 PM Healthcare Agents on File Name Relationship Healthcare Agent Viktoriahi p Communication Susan Smith Legal Guardian Primary Decision [facility] Latest Code Status on File Code Status [...] Communication Susan Smith Legal Guardian Primary Decision [facility] Latest Code Status on File Code Status [...] Communication Susan Smith Legal Guardian Primary Decision [facility] er Documents on File Type Date Recorded Patient Checker In Expl anation Advance Directive 02/14/2017 3:25 PM [facility] 01/01/2015 Latest Code Status on File Code Status Date Activated Date Inactivated Comments Full Code 04/09/2023 2:15 PM 04/20/2023 1:43 PM Documents on File Type Date Recorded Patient Checker In Expl anation ACP-Advance Directive 05/09/2022 2:31 PM Le tter of Guardianship Latest Code Status on File Code Status Date Activated Date Inactivated Comments Full Code 04/24/2023 10:47 PM Code Status History Code Status Date Activated Date Inactivated Comments Full Code 02/10/2023 7:49 AM 02/14/2023 3:33 PM Full Code 09/02/2022 11:14 PM 09/07/2022 7:13 PM Full Code 06/21/2022 5:10 PM 06/24/2022 2:55 AM Full Code 06/12/2022 3:24 PM 06/15/2022 4:18 PM Healthcare Agents on File Name Relationship Healthcare Agent [facility] Communication Susan Smith Legal Guardian Primary Decision [facility] er Documents on File Type Date Recorded Patient Checker In Expl anation Advance Directive 02/14/2017 3:25 PM [facility] 01/01/2015 Latest Code Status on File Code Status Date Activated Date Inactivated Comments Full Code 04/09/2023 2:15 PM 04/20/2023 1:43 PM Hospital Course Note HNO ID: [id number] Author: Quin Saucedo Service: Hospital Medicine Author [...] Specialty Diagnoses / Procedures Referred By Perla t Referred To Contact Procedures Discharge Follow-Up Edilma Eastman MD [address] [place] [phone] Referral ID Status Reason Start Date Expiration Date V isits Requested Visits Authorized [id number] Pending Review 04/19/2023 04/18/2024 1 1 Specialty Diagnoses / Procedures Referred By Contac t Referred To Contact Diagnoses SBO (small bowel obstruction) ([facility]) Procedures Follow-up with primary care provider Edilma Eastman MD [address] [place] [id number] Referral ID Status Reason Start Date Expiration Date V isits Requested Visits Authorized [id number] Pending Review 04/19/2023 04/18/2024 1 1 Specialty Diagnoses / Procedures Referred By Perla t Referred To Contact Procedures Adult diet Edilma Eastman MD [address] [place] [address] Referral ID Status Reason Start Date Expiration Date V isits Requested Visits Authorized [id number] Pending Review 04/19/2023 04/18/2024 1 1 Additional Source Comments (unrecognized sect ion and content) No Status Records FoundNo Status Records FoundNo Status Records FoundNo Status Records FoundNo Status Records FoundNo Status Records FoundNo Status Records FoundNo Status Records FoundNo Status Records FoundNo Status Records FoundNo Status Records Found INFORMATION SOURCE (unrecogn ized section and content) DATE CREATED AUTHOR 08/29/2017 [facility] DATE CREATED AUTHOR AUTHOR'S ORGANIZ ATION 08/29/[address] [facility] DATE CREATED AUTHOR AUTHOR'S ORGANIZ ATION 12/08/2018 [facility] DATE CREATED AUTHOR AUTHOR'S ORGANIZ ATION 10/08/2021 [facility] DATE CREATED AUTHOR AUTHOR'S ORGANIZ ATION 02/17/2023 [facility] DATE CREATED AUTHOR AUTHOR'S ORGANIZ ATION 03/22/2023 [facility] DATE CREATED AUTHOR AUTHOR'S ORGANIZ ATION 04/09/2023 [facility] DATE CREATED AUTHOR AUTHOR'S ORGANIZ ATION 04/23/2023 [facility] DATE CREATED AUTHOR AUTHOR'S ORGANIZ ATION 05/08/2023 [facility] DATE CREATED AUTHOR AUTHOR'S ORGANIZ ATION 05/14/2023 [facility] DATE CREATED AUTHOR AUTHOR'S ORGANIZ ATION 05/18/2023 [facility] dical Specialists EPIC Care Teams (unrecognized sec tion and content) Emergency Medical Technician Basic Relationship Specialty Start Date End Date Kevin Robles DO [address] [place] [address] [place] [address] PCP - General Internal Medicine 05/17/17 Emergency Medical Technician Basic Relationship Specialty Start Date End Date Kevin Robles DO [address] [place] [address] PCP - General Internal Medicine 05/17/17 Emergency Medical Technician Basic Relationship Specialty Start Date End Date Kevin Robles DO [address] [place] [address] [place] [address] PCP - General Internal Medicine 05/17/17 Emergency Medical Technician Basic Relationship Specialty Start Date End Date Kevin Robles DO [address] [place] [address] [place] [address] PCP - General Internal Medicine 05/17/17 Emergency Medical Technician Basic Relationship Specialty Start Date End Date Kevin Robles DO [address] [place] [address] [place] [address] PCP - General Internal Medicine 05/17/17 Emergency Medical Technician Basic Relationship Specialty Start Date End Date Kevin Robles DO [address] [place] [address] [place] [address] PCP - General Internal Medicine 05/17/17 Emergency Medical Technician Basic Relationship Specialty Start Date End Date Kevin Robles, DO [address] [place] [address] [place] [address] PCP - General Internal Medicine 05/17/17 Emergency Medical Technician Basic Relationship Specialty Start Date End Date Carson Matamoros MD [address] [place] [address] PCP - General Family Medicine 05/12/22 Emergency Medical Technician Basic Relationship Specialty Start Date End Date Carson Matamoros MD [address] [place] [address] PCP - General Family Medicine 05/12/22 Emergency Medical Technician Basic Relationship Specialty Start Date End Date Carson Matamoros MD [address] [place] [address] PCP - General Family Medicine 05/12/22 Emergency Medical Technician Basic Relationship Specialty Start Date End Date Carson Matamoros MD [address] [place] [address] PCP - General Family Medicine 04/07/23 Emergency Medical Technician Basic Relationship Specialty Start Date End Date Carson Matamoros MD [address] [place] [address] PCP - General Family Medicine 05/12/22 Emergency Medical Technician Basic Relationship Specialty Start Date End Date Carson Matamoros MD [address] [place] [address] PCP - General Family Medicine 04/07/23 Reason [...] kidney injury (HCC) Becca Patel MD [address] [facility] [address] [place] [address] [facility] [employer] [id number] [place] [phone] Referral ID Status Reason Start Date Expiration Date Visits Re quested Visits Authorized [id number] 1 1 Reason Comments Emesis Concern for bowel ob struction, had one one week ago, vomited foul smelling emesis this morning Specialty Diagnoses / Procedures Referred By Contac t Referred To Contact Diagnoses SBO (small bowel obstruction) ([facility]) Jose Ray MD [address] [facility] [place] [id number] [facility] [id number] [place] [phone] Referral ID Status Reason Start Date Expiration Date Visits Re quested Visits Authorized [id number] 1 1 Reason Comments Other Pt was sent by SNF f or possible bowel obstruction. Pt has no complaints Specialty Diagnoses / Procedures Referred By Contac t Referred To Contact Diagnoses Small bowel obstruction (HCC) SBO (small bowel obstruction) ([facility]) Lyla Zepeda MD [address] [facility] [address] [place] [address] [facility] [employer] [id number] [place] [phone] Referral ID Status Reason Start Date Expiration Date Visits Re quested Visits Authorized [id number] 1 1 Reason Comments Vomiting Specialty Diagnoses / Procedures Referred By Contac t Referred To Contact Diagnoses SBO (small bowel obstruction) ([facility]) Seizure disorder ([facility]) Nazia Chappell MD [address] [place] [address] Referral ID Status Reason Start Date Expiration Date Visits Re quested Visits Authorized [id number] 1 1 Specialty Diagnoses / Procedures Referred By Perla monteiro Referred To Contact Diagnoses SBO (small bowel obstruction) (HCC) Small bowel obstruction (HCC) Small bowel obstruction Bolivar Valdovinos, DO [address] [address] [facility] [id number] [place] [address] Referral ID Status Reason Start Date Expiration Date Visits Re quested Visits Authorized [id number] 1 1 Ordered Prescriptions (unrec ognized section [...] 10 days 200 mL 0 09/07/2022 09/07/2022 Prescription Sig Dispensed Refills Start Date End Da te linaclotide (LINZESS) 145 MCG capsule Take 1 capsule by mouth every morning (before breakfast) 30 capsule 0 04/30/2023 Scheduled Active and Recently Administ ered Medications [...] Ospina) 0941 (Given - Provider: Cydney Coffey, RN) 0954 (Given - Provider: Gayatri Yates) lacosamide [...] - Comment: Medication mixed and wasted with MILLER Brooke.)2208 (Stopped - Provider: Whitney Freed RN) 0952 (New Bag - Provider: Cydney Coffey RN)1044 (Stopped - Provider: Kathy Ospina)2340 (New Bag - Provider: Keyanna Friend, MILLER) 0010 (Stopped - Provider: Keyanna Friend RN)1041 [...] Provider: Kathy Ospina)1149 (Stopped - Provider: Kathy Ospina)2233 (New Bag - Provider: Whitney Freed RN)2248 (Stopped - Provider: Whitney Freed RN) 1049 (New Bag - Provider: Cydney Coffey RN)1104 (Stopped - Provider: Cydney Coffey RN)2222 (New Bag - Provider: Keyanna Friend, MILLER)2237 (Stopped - Provider: Keyanna Friend RN) 0959 [...] Fluid Infusing) 0946 (Given - Provider: Cydney Coffey, MILLER)2050 (Not Given - Provider: Keyanna Friend RN - Reason: IV Fluid Infusing) 0957 (Given - Provider: Gayatri Yates)2100 (Due) Continuous Medication Order 05/10/2022 05/11/2022 05/12/2022 lactated ringers IV soln infusion (CANCELED) IntraVENous, at 75 mL/hr, CONTINUOUS, Starting on Sun05/09/22 at 0345 0434 (New Bag - Provider: Keyanna Friend, MILLER)0904 (Rate/Dose Change - Provider: Kathy Ospina)1454 (New Bag - Provider: Kathy Ospina) 0513 (New Bag - Provider: Kathy Llamas, MILLER)1717 (New Bag - Provider: Cydney Coffey, MILLER) 0738 (Stopped - Provider: Yolanda Pope RN) [...] IntraVENous, 2 TIMES DAILY, First dose on Vilma 06/22/22 at 1230, Until Discontinued, IV Push over minimum of 2 minutes - Dilute with 10 mL NS 1325 (Given - Provider: Jeremy Izquierdo RN)2136 (Given - Provider: Corin Castanon RN) 0837 (Given - Provider: Yennifer El)2056 (Given - Provider: Daiana Mercado, MILLER) 0900 (Due)2100 (Due) lacosamide (VIMPAT) 150 mg in sodium chloride 0.9 % 65 mL IVPB 150 mg, IntraVENous, at 130 mL/hr, Administer over 30 Minutes, 2 TIMES DAILY BEFORE MEALS, First dose on Vilma 06/22/22 at 0930 0937 (New Bag - Provider: [...] mg, IntraVENous, EVERY MORNING, First dose on Vilma 06/22/22 at 0900, Until Discontinued 0916 (New Bag - Provider: Jeremy Izquierdo RN)0938 (Stopped - Provider: Jeremy Izquierdo RN) 1013 (New Bag - Provider: Yennifer El)1028 (Stopped - Provider: Yennifer El) levETIRAcetam (KEPPRA) 1500 mg/100 mL IVPB 1,500 mg, IntraVENous, EVERY MORNING, First dose on Sun06/24/22 at 0900, Until Discontinued 0900 (Due) levETIRAcetam (KEPPRA) 2,000 mg in sodium chloride 0.9 % 250 mL IVPB 2,000 mg, IntraVENous, Nightly, First dose on Vilma 06/22/22 at 2100, Until Discontinued, For seizures, administer over 15 minutes. For subarachnoid hemorrhage or traumatic brain injury, administer over 60 minutes. 214 (New Bag - Provider: Corin Castanon RN)2202 (Stopped - Provider: Corin Castanon RN) 2036 (New Bag - Provider: Daiana Mercado, MILLER)2054 (Stopped - Provider: Daiana Mercado RN) 2100 (Due) sodium chloride flush 0.9 % injection 5-40 mL 5-40 mL, IntraVENous, EVERY 12 HOURS SCHEDULED (2 times per day), First dose on Sun06/21/22 at 2100, Until Discontinued, For Line Patency: [...] mL/lumen 0015 (Not Given - Provider: Alesha Galicia RN - Reason: IV Fluid Infusing)0920 (Not Given - Provider: Jeremy Izquierdo RN - Reason: IV Fluid Infusing)2208 (Not Given - Provider: Corin Castanon RN - Reason: IV Fluid Infusing) 0843 (Not Given - Provider: Yennifer El - Reason: IV Fluid Infusing)190 (Not Given - Provider: Daiana Mercado RN - Reason: IV Fluid Infusing) 0900 (Due)2100 (Due) Continuous Medication Order 06/22/2022 06/23/2022 06/24/2022 0.9 % sodium chloride infusion IntraVENous, at 125 mL/hr, CONTINUOUS, Starting on Sun06/21/22 at 1730 0859 (New Bag - Provider: Carlie Sanchez RN)1901 (New Bag - Provider: Corin Castanon RN) 0338 (New Bag - Provider: Corin Castanon RN)1238 (New Bag - Provider: Yennifer El) [...] NG tube, IMG ONCE PRN, Starting on Sun06/22/22 at 1322, Until Discontinued, Other 1322 (Given [...] dose on Sun09/03/22 at 1145, Until Discontinued 0913 (Not Given - Provider: Georgie Dillard RN [...] dose on Sun09/02/22 at 2330, Until Discontinued 0900 (Automatically Held - Provider: RAISA Mejia CNP)2100 (Automatically Held - Provider: RAISA Mejia CNP) 0900 (Automatically Held - Provider: Dorota Woodson APRN OTONIEL)1107 (Unheld by provider - Provider: Dorota Woodson APRN OTONIEL)203 (Given - Provider: Anais Addison RN) 0947 [...] Dillard RN)1717 (Given - Provider: Georgie Dillard RN)2051 (Given - Provider: Connie Newsome RN) 0855 (Given - Provider: Venkat Leslie RN)1137 (Given - Provider: Venkat Leslie RN)1648 (Given - Provider: Venkat Leslie RN)2055 (Given - Provider: Anais Addison RN) 0739 (Given - Provider: aCrlie Sanchez, MILLER)1230 (Given - Provider: Carlie Sanchez RN)1700 (Due)2100 (Due) erythromycin (EES) 200 MG/5ML suspension 200 mg (COMPLETED) 200 mg, Oral, ONCE, 1 dose, On Sun09/05/22 at 1030, Antimicrobial Indications: Other, Other Abx Indication: gi motility, Take on an empty stomach, at least 30 minutes prior to a meal. 1050 (Given - Provider: Georgie Dillard RN) finasteride (PROSCAR) tablet 5 mg 5 mg, Oral, NIGHTLY, First dose on 09/02/22 at 2330, Until Discontinued, Women should not [...] 0900 (Automatically Held - Provider: RAISA Mejia CNP)2099 (Automatically Held - Provider: RAISA Mejia CNP) 09 (Automatically Held - Provider: RAISA Mejia CNP)110 (Unheld by provider - Provider: RAISA Mejia CNP)2055 (Given - Provider: Anais Addison RN) 112 (Not Given - Provider: Carlie Sanchez RN - Reason: Patient/family refused)2099 (Due) lacosamide (VIMPAT) 150 mg in sodium chloride 0.9 % 65 mL IVPB (CANCELED) 150 mg, IntraVENous, at 130 mL/hr, Administer over 30 Minutes, 2 TIMES DAILY, First dose on 09/04/22 at 2100 1020 (New Bag - Provider: Georgie Dillard RN)1050 (Stopped - Provider: Georgie Dillard RN)2111 (New Bag - Provider: Connie Newsome RN)2143 (Stopped - Provider: Connie Newsome RN) 09 (New Bag - Provider: Venkat Leslie, RN)110 (Stopped - Provider: Venkat Leslie, MILLER) lacosamide (VIMPAT) tablet 150 mg 150 mg, Oral, 2 TIMES DAILY, First dose on 09/02/23 at 2330, Until Discontinued, Swallow tablets whole; do not crush, split, or chew. 0900 (Automatically Held - Provider: RAISA Mejia CNP)2099 [...] reorder) on Sun09/06/22 at 1145, Until Discontinued 1133 (Given - Provider: Venkat Leslie RN) 09 (Given - Provider: Carlie Sanchez RN) lamoTRIgine (LAMICTAL) tablet 600 mg 600 mg, Oral, Nightly, First dose on Sun09/02/22 at 2330, Until Discontinued 2099 (Automatically Held - Provider: RAISA Mejia CNP) 110 (Unheld by provider - Provider: RAISA Mejia CNP)2030 (Given - Provider: Anais Addison, MILLER) 2099 (Due) latanoprost (XALATAN) 0.005 % ophthalmic solution 1 drop 1 drop, Both Eyes, NIGHTLY, First dose on 09/02/22 at 2330, Until Discontinued 2049 (Given - Provider: Connie Newsome RN) 2054 (Given - Provider: Anais Addison, MILLER) 2099 (Due) levETIRAcetam (KEPPRA) 1500 mg/100 mL IVPB (CANCELED) 1,500 mg, IntraVENous, 2 times daily, First dose on Sun09/03/22 at 2100, Until Discontinued 903 (New Bag - Provider: Georgie Dillard RN)09 (Stopped - Provider: Georgie Dillard RN)2046 (New Bag - Provider: Connie Newsome RN)2104 (Stopped - Provider: Connie Newsome RN) 0858 [...] MD)1107 (Unheld by provider - Provider: Dorota Woodson, [facility]) 0930 (Given - Provider: Carlie Sanchez RN) levETIRAcetam (KEPPRA) tablet 2,000 mg 2,000 mg, Oral, EVERY EVENING, First dose on Sun09/02/22 at 2330, Until Discontinued, Do not crush or chew. 1800 (Automatically Held - Provider: Lyla Zepeda MD) 1107 (Unheld by provider - Provider: Dorota Woodson, [facility])1732 (Given - Provider: Venkat Leslie RN) 1800 (Due) oxybutynin (DITROPAN-XL) extended release tablet 10 mg 10 mg, Oral, DAILY, First dose (after last reorder) on Sun09/06/22 at 1145, Until Discontinued, Do not crush or break. 1133 (Given - Provider: Venkat Leslie RN) 0946 (Given - Provider: Carlie Sanchez RN) pantoprazole (PROTONIX) 40 mg in sodium chloride (PF) 0.9 % 10 mL injection 40 mg, IntraVENous, DAILY, First dose on Sun09/04/22 at 1030, Reconstitute with 10 mL 0.9 % sodium chloride and administer over at least 2 minutes. 0859 (Given - Provider: Georgie Dillard RN) 0853 (Given - Provider: Venkat Leslie RN) 0949 (Given - Provider: Carlie Sanchez RN) primidone (MYSOLINE) tablet 250 mg 250 mg, Oral, EVERY MORNING, First dose (after last reorder) on Sun09/06/22 at 1145, Until Discontinued 1136 (Given - Provider: Venkat Leslie RN) 0930 (Given - Provider: Carlie Sanchez RN) primidone (MYSOLINE) tablet 375 mg 375 mg, Oral, NIGHTLY, First dose on Sun09/02/22 at 2330, Until Discontinued 2099 (Automatically Held - Provider: RAISA Mejia CNP) 1107 (Unheld by provider - Provider: RAISA Mejia CNP)2030 (Given - Provider: Anais Addison RN) 2099 (Due) senna (SENOKOT) tablet 8.6 mg 8.6 mg (1 tablet), Oral, 2 TIMES DAILY, First dose (after last modification) on Sun09/06/22 at 1145, Until Discontinued 113 (Given - Provider: Venkat Leslie RN)2031 (Given - Provider: Anais Addison RN) 0947 (Given - Provider: Carlie Sanchez RN)2099 (Due) sodium chloride flush 0.9 % injection 10 mL 10 mL, IntraVENous, EVERY 12 HOURS SCHEDULED (2 times per day), First dose on Sun09/02/22 at 2330, Until Discontinued 905 (Not Given - Provider: Georgie Dillard RN - Reason: IV Fluid Infusing)2051 (Not Given - Provider: Connie Newsome RN - Reason: IV Fluid Infusing) 110 (Not Given - Provider: Venkat Leslie RN - Reason: IV Fluid Infusing)2055 (Given - Provider: Anais Addison RN) 0740 (Given - Provider: Carlie Sanchez, MILLER)2099 (Due) tamsulosin (FLOMAX) capsule 0.4 mg 0.4 mg, Oral, 2 TIMES DAILY, First dose (after last modification) on Sun09/06/22 at 1145, Until Discontinued, Do not crush or break. Give 30 minutes after a full meal to limit risk of orthostatic hypotension/falls. 1133 (Given - Provider: Venkat Leslie RN)2030 (Given - Provider: Anais Addison RN) 0948 (Given - Provider: Carlie Sanchez RN)2099 (Due) traZODone (DESYREL) tablet 50 mg 50 mg, Oral, NIGHTLY, First dose on Sun09/02/22 at 2330, Until Discontinued 2099 (Automatically Held - Provider: RAISA Mejia CNP) 1107 (Unheld by provider - Provider: RAISA Mejia CNP)203 (Given - Provider: Anais Addison, MILLER) 2100 (Due) Vitamin D (CHOLECALCIFEROL) tablet 1,000 Units 1,000 Units, Oral, DAILY, First dose on 09/03/22 at 0900, Until Discontinued, Labeling may look different. 25 ckc=[id number] Units. Please double check dosages. 0900 (Automatically Held - Provider: RAISA Mejia CNP) 0900 (Automatically Held - Provider: RAISA Mejia CNP)1107 (Unheld by provider - Provider: RAISA Mejia CNP) 0947 (Given - Provider: Carlie Sanchez RN) Continuous Medication Order 09/05/2022 09/06/2022 09/07/2022 lactated ringers IV soln infusion (CANCELED) IntraVENous, at 75 mL/hr, CONTINUOUS, Starting on 09/02/22 at 2330 0233 (New Bag - Provider: Rachel Eli, RN)1502 (New Bag - Provider: Georgie Dillard, RN) 0419 (New Bag - Provider: Connie Newsome, RN) PRN Medication Order 09/05/2022 09/06/2022 09/07/2022 [...] by provider - Provider: RAISA Mejia CNP) acetaminophen (TYLENOL) tablet 650 mg(Linked Group 1) 650 mg, Oral, EVERY 6 HOURS PRN, Starting on 09/02/22 at 2314, Until Discontinued, Pain Mild (1-3), Fever, For temp greater than 100.4 F (38 C), Maximum dose of acetaminophen is 4000 mg from all sources in 24 hours. 1400 (Unheld by provider - Provider: RAISA Mejia CNP) diazePAM (DIASTAT) rectal gel 20 mg 20 mg, Rectal, PRN, Starting on 09/02/22 at 2314, Until Discontinued, seizures, as indicated hydrOXYzine HCl (ATARAX) tablet 25 mg 25 mg, Oral, EVERY 12 HOURS PRN, Starting on 09/02/22 at 2314, Until Discontinued, Itching 1400 (Unheld by provider - Provider: RAISA Mejia CNP) LORazepam (ATIVAN) tablet 0.5 mg 0.5 mg, Oral, EVERY 8 HOURS PRN, Starting on 09/02/22 at 2314, Until Discontinued, Agitation, Seizures, Anxiety 1400 (Unheld by provider - Provider: RAISA Mejia CNP) magnesium sulfate 2000 mg in 50 mL [...] mL 10 mL, IntraVENous, PRN, Starting on 09/02/22 at 2314, Until Discontinued, Line Care, After [...] for bleeding. 0616 (Given - Provider: Melany Castellanos RN)1323 (Given - Provider: Jackson Giles, RN)2318 (Given - Provider: Melany Castellanos, MILLER) 0629 (Given - Provider: Melany Castellanos RN)1325 (Given - Provider: Martina Linton, RN)2047 (Given - Provider: Mendy Gonzáles, RN)2200 (Canceled Entry - Provider: Mendy Gonzáles, MILLER) 0531 (Given - Provider: Mendy Gonzáles, MILLER) lacosamide (VIMPAT) 150 mg in sodium chloride 0.9 % 50 mL IVPB (CANCELED) 150 mg, intravenous, at 130 mL/hr, Administer over 30 Minutes, Every 12 hours, First dose on 04/08/23 at 1430 0215 (New Bag - Provider: Melany Castellanos RN)0245 (Stop Bag - Provider: Melany Castellanos RN) lacosamide (VIMPAT) tablet 150 mg 150 mg, oral, Every 12 hours, First dose on Sun04/18/23 at 1300, Swallow tablets whole; do not divide. 1323 (Given - Provider: Jackson Giles RN) 0143 (Given - Provider: Melany Castellanos RN)1325 (Given - Provider: Martina Linton, RN) 0146 (Given - Provider: Mendy Gonzáles, MILLER) lamoTRIgine (LaMICtal) tablet 400 mg 400 mg, oral, Daily, First dose on Sun04/18/23 at 0900, Look-alike/sound-alike medication - verify indication for use. 0737 (Given - Provider: Jackson Giles RN) 0905 (Given - Provider: Martina Linton, RN) 0819 (Given - Provider: Martina Linton RN) lamoTRIgine (LaMICtal) tablet 600 mg 600 mg, oral, Nightly, First dose on Sun04/17/23 at 2200, Look-alike/sound-alike medication - verify indication for use. 2317 (Given - Provider: Melany Castellanos RN) 2038 (Given - Provider: Mendy Gonzáles, MILLER)220 (Canceled Entry - Provider: Mendy Gonzáles, MILLER) latanoprost (XALATAN) 0.005 % ophthalmic solution 1 drop 1 drop, both eyes, Nightly, First dose on Sun04/09/23 at 2200 2318 (Given - Provider: Melany Castellanos RN) 2039 (Given - Provider: Mendy Gonzáles, MILLER)220 (Canceled Entry - Provider: Mendy Gonzáles, MILLER) levETIRAcetam (KEPPRA) IVPB 1500 mg/100 mL in iso-osmotic sodium chloride (15 mg/mL premix) (CANCELED) 1,500 mg, intravenous, at 400 mL/hr, Administer over 15 Minutes, Every morning before breakfast, First dose on Sun04/08/23 at 1200, Look-alike/sound-alike medication - verify indication for use. 0645 (New Bag - Provider: Melany Castellanos RN)0658 (Rate/Dose Verify - Provider: Jackson Giles RN)0700 (Stop Bag - Provider: Jackson Giles [...] 2317 (Given - Provider: Melany Castellanos RN) 203 (Given - Provider: Mendy Gonzáles, MILLER)2200 (Canceled Entry - Provider: Mendy Gonzáles, MILLER) magnesium oxide (MAGOX) tablet 400 mg 400 mg, oral, Daily, First dose on Sun04/19/23 at 1045 1324 (Given - Provider: Martina Linton RN) 0824 (Given - Provider: Martina Linton RN) primidone (MYSOLINE) tablet 250 mg 250 mg, oral, Daily, First dose on Sun04/18/23 at 0900 0737 (Given - Provider: Jackson Giles RN) 0905 (Given - Provider: Martina Linton RN) 0824 (Given - Provider: Martina Linton RN) primidone (MYSOLINE) tablet 375 mg 375 mg, oral, Nightly, First dose on Sun04/17/23 at 2200 2317 (Given - Provider: Melany Castellanos RN) 204 (Given - Provider: Mendy Gonzáles, MILLER)2200 (Canceled Entry - Provider: Mendy Gonzáles, MILLER) sodium chloride 0.9 % flush 20 mL(Linked Group 1) 20 mL, intravenous, Every 12 hours, First dose (after last modification) on Sun04/09/23 at 0100, PICC line. Administer 10 mL per lumen; 20 mL total (for double lumen flush) 0216 (Given - Provider: Melany Castellanos RN)1229 (Given - Provider: Jackson Giles RN) 0144 (Given - Provider: Melany Castellanos RN)0904 (Given - Provider: Martina Linton RN) 0100 (Not Given - Provider: Mendy Gonzáles, RN - Reason: Loss of IV access) [...] or NPO without IV access., Starting on Sun04/08/23 at 0935, If conscious and not NPO, [...] level 0.45 to 0.5 mmol/L., Starting on Mora 04/08/23 at 1151, Recheck magnesium level 4 hours after infusion complete. With each magnesium result continue the replacement orders as needed. 0747 (New Bag - Provider: Jackson Giles RN)0948 (Stop Bag - Provider: Jackson Giles, MILLER) 0649 (New Bag - Provider: Melany Castellanos, RN)0849 (Stop Bag - Provider: Martina Linton, MILLER) magnesium sulfate IVPB 4000 mg/100 mL in iso-osmotic water (40 mg/mL premix) 4,000 mg, intravenous, at 25 mL/hr, Administer over 240 Minutes, As needed, Magnesium level 1.6 mg/dL or less, or Ionized Magnesium level 0.44 mmol/L or less, Starting on Mora 04/08/23 at 1151, Recheck magnesium level 4 [...] level 2.3 mg/dL or less., Starting on 04/09/23 at 0817, If dose administered, recheck phosphorus level 4 hours after last dose. Look-alike/sound-alike medication - verify indication for use. Give with a full glass of water. 0252 (See Alternative - Provider: Melany Castellanos, RN)0636 (See Alternative - Provider: Jackson Giles, RN)0638 (See Alternative - Provider: Jackson Giles, RN)0655 (See Alternative - Provider: Jackson Giles, RN)1631 (See Alternative - Provider: Jackson Giles, RN)2031 (See Alternative - Provider: Melany Castellanos, MILLER) sodium chloride 0.9 % flush 20 mL(Linked [...] and after each intermittent use, Starting on 04/08/23 at 0935 sodium chloride 0.9 % flush [...] Giles RN)0655 (Stop Bag - Provider: Jackson Giles, RN)163 (New Bag - Provider: Jackson Giles, RN)2030 (Stop Bag - Provider: Melany Castellanos, MILLER) sodium phosphate 20 mmol in sodium chloride [...] RN)0638 (See Alternative - Provider: Jackson Giles, MILLER)0655 (See Alternative - Provider: Jackson Giles, RN)163 (See Alternative - Provider: Jackson Giles, RN)2030 (See Alternative - Provider: Melany Castellanos, RN) Linked Groups Order Group 1: Consult [...] level 2.3 mg/dL or less, Starting on 04/09/23 at 0817, Administer over 6 hours via dedicated line (peripheral line). If administered, recheck phosphorus level 4 hours after infusion complete. Or sodium phosphate 20 mmol in sodium chloride 0.9 % 100 mL IVPBJump to med 20 mmol, intravenous, at 26.7 mL/hr, Administer over 4 Hours, As needed, for phosphorus level 2.3 mg/dL or less., Starting on 04/09/23 at 0817, Administer over 4 hours via dedicated line (central line). If administered, recheck phosphorus level 4 hours after infusion complete. Infuse using central line access. Or sod phos di, mono-K phos mono (K-PHOS NEUTRAL) 250 mg tablet 2 tabletJump to med 2 tablet, oral, As needed, for phosphorus level 2.3 mg/dL or less., Starting on 04/09/23 at 0817, If dose administered, recheck phosphorus level 4 hours after last dose. Look-alike/sound-alike medication - verify indication for use. Give with a full glass of water. Scheduled Medication Order 04/27/2023 04/28/2023 04/29/2023 calcium carbonate (TUMS) chewable tablet 500 mg 500 mg (1 tablet), Oral, 2 TIMES DAILY, First dose on 04/28/23 at 1230, Until Discontinued 1328 (Given - Provider: Ray Johnson RN)2145 (Given - Provider: Sandrine Santana RN) 1033 (Given - Provider: Ray Johnosn RN)2099 (Due) enoxaparin (LOVENOX) injection 40 mg 40 mg, SubCUTAneous, DAILY, First dose on Sun04/25/23 at 0900, Until Discontinued, Indication of Use: Prophylaxis-DVT/PE, Administer by deep subCUTAneous injection with pt lying down. Alternate injection sites on abdominal wall. Do not rub site after injection. Check with provider prior to any invasive procedure. 08 (Given - Provider: Sharifa Bush RN) 09 (Given - Provider: Ray Johnson RN) 101 (Given - Provider: Ray Johnson RN) finasteride (PROSCAR) tablet 5 mg 5 mg, Oral, NIGHTLY, First dose on 04/28/23 at 2100, Until Discontinued, Women should not handle crushed or broken finasteride tablets when they are or may potentially be , due to potential risk to the fetus. 2142 (Given - Provider: Sandrine Santana RN) 2099 (Due) lacosamide (VIMPAT) 150 mg in sodium chloride 0.9 % 65 mL IVPB (CANCELED) 150 mg, IntraVENous, at 130 mL/hr, Administer over 30 Minutes, 2 TIMES DAILY, First dose (after last modification) on Sun04/26/23 at 1600 0827 (New Bag - Provider: Sharifa Bush RN)0857 (Stopped - Provider: Sharifa Bush RN)2100 (New Bag - Provider: Sandrine Santana RN)2130 (Stopped - Provider: Sandrine Santana RN) 0923 (New Bag - Provider: Ray Johnson RN)0953 (Stopped - Provider: Ray Johnson RN) lacosamide (VIMPAT) tablet 150 mg 150 mg, Oral, 2 TIMES DAILY, First dose on Sun04/28/23 at 2100, Until Discontinued 2141 (Given - Provider: Sandrine Santana RN) 1018 (Given - Provider: Ray Johnson RN)2099 (Due) lamoTRIgine (LAMICTAL) tablet 400 mg 400 mg, Oral, EVERY MORNING, First dose on 04/28/23 at 1230, Until Discontinued 1328 (Given - Provider: Ray Johnson RN) 1018 (Given - Provider: Ray Johnson RN) lamoTRIgine (LAMICTAL) tablet 600 mg 600 mg, Oral, Nightly, First dose on Sun04/28/23 at 2100, Until Discontinued 2142 (Given - Provider: Sandrine Santana RN) 2099 (Due) levETIRAcetam (KEPPRA) injection 1,500 mg 1,500 mg, IntraVENous, DAILY, First dose on Sun04/25/23 at 0900, Until Discontinued, IV push 0803 (Given - Provider: Sharifa Bush RN) 09 (Given - Provider: Ray Johnson RN) 102 (Given - Provider: Ray Johnson RN) levETIRAcetam (KEPPRA) injection 2,000 mg 2,000 mg, IntraVENous, Nightly, First dose on Sun04/25/23 at 2100, Until Discontinued, IV push 2052 (Given - Provider: Sandrine Santana RN) 2140 (Given - Provider: Sandrine Santana RN) 2099 (Due) linaclotide (LINZESS) capsule 145 mcg 145 mcg, Oral, DAILY BEFORE BREAKFAST, First dose on Sun04/29/23 at 0700, Until Discontinued, Administer at least 30 minutes before breakfast on an empty stomach. Do not break or chew. Hold for loose stool 0540 (Given - Provider: Sandrine Santana RN) magnesium oxide (MAG-OX) tablet 400 mg 400 mg, Oral, DAILY, First dose on 04/28/23 at 1230, Until Discontinued 1328 (Given - Provider: Ray Johnson RN) 1019 (Given - Provider: Ray Johnson RN) meclizine (ANTIVERT) tablet 25 mg 25 mg, Oral, DAILY, First dose on 04/28/23 at 1230, Until Discontinued 1329 (Given - Provider: Ray Johnson RN) 1019 (Given - Provider: Ray Johnson RN) oxyBUTYnin (DITROPAN-XL) extended release tablet 10 mg 10 mg, Oral, DAILY, First dose on 04/28/23 at 1230, Until Discontinued, Do not crush or break. 1329 (Given - Provider: Ray Johnson RN) 1018 (Given - Provider: Ray Johnson RN) pantoprazole (PROTONIX) tablet 40 mg 40 mg, Oral, DAILY BEFORE BREAKFAST, First dose on Sun04/29/23 at 0700, Until Discontinued, Do not crush or break. 0540 (Given - Provider: Sandrine Santana RN) polyethylene glycol (GLYCOLAX) packet 17 g 17 g, Oral, DAILY, First dose on 04/28/23 at 1230, Until Discontinued, Stir and dissolve one packet of powder (17 g) in any 4 to 8 ounces of beverage (cold, hot or room temperature) then drink 1328 (Given - Provider: Ray Johnson RN) 1019 (Given - Provider: Ray Johnson RN) primidone (MYSOLINE) tablet 250 mg 250 mg, Oral, EVERY MORNING, First dose on 04/28/23 at 1230, Until Discontinued 1328 (Given - Provider: Ray Johnson RN) 1019 (Given - Provider: Ray Johnson RN) primidone (MYSOLINE) tablet 375 mg 375 mg, Oral, NIGHTLY, First dose on Sun04/28/23 at 2100, Until Discontinued 2141 (Given - Provider: Sandrine Santana RN) 2100 (Due) sodium chloride flush 0.9 % injection 5-40 mL 5-40 mL, IntraVENous, EVERY 12 HOURS SCHEDULED (2 times per day), First dose on Sun04/24/23 at 2315, Until Discontinued, For Line Patency: Peripheral IV [...] Midline or Central Line = 20 mL/lumen 0824 (Given - Provider: Sharifa Bush RN)2052 (Given - Provider: Sandrine Santana RN) 09 (Given - Provider: Ray Johnson RN)214 (Given - Provider: Sandrine Santana RN) 1020 (Given - Provider: Ray Johnson RN)2100 (Due) tamsulosin (FLOMAX) capsule 0.4 mg 0.4 mg, Oral, 2 TIMES DAILY, First dose on Sun04/28/23 at 1230, Until Discontinued, Do not crush or break. Give 30 minutes after a full meal to limit risk of orthostatic hypotension/falls. 1328 (Given - Provider: Ray Johnson, MILLER)2143 (Given - Provider: Sandrine Santana RN) 1032 (Given - Provider: Ray Johnson RN)2100 (Due) Continuous Medication Order 04/27/2023 04/28/2023 04/29/2023 0.9 % sodium chloride infusion () IntraVENous, at 50 mL/hr, CONTINUOUS, Starting on Sun04/24/23 at 2315, For 48 hours 0155 (Rate/Dose Change - Provider: Sharifa Bush RN)0156 (Paused - Provider: Sharifa Bush RN)0156 (Rate/Dose Change - Provider: Sharifa Bush RN)0237 (Stopped - Provider: Sharifa Bush RN) PRN Medication Order 04/27/2023 04/28/2023 04/29/2023 0.9 % sodium chloride infusion IntraVENous, at 5-250 mL/hr, PRN, if patient receiving piggyback infusions and maintenance fluids are not ordered OR KVO fluids to protect IV site / prevent frequent line interruptions/ long duration, Starting on Sun04/24/23 at 2247, For piggyback infusion, administer at same rate [...] or less into rate field of order. 0825 (New Bag - Provider: Sharifa Bush RN) acetaminophen (TYLENOL) suppository 650 mg(Linked Group 1) 650 mg, Rectal, EVERY 6 HOURS PRN, Starting on Sun04/24/23 at 2247, Until Discontinued, Pain Mild (1-3), Fever, For temp greater than 100.4 F (38 C), Administer if oral route cannot be used. acetaminophen (TYLENOL) tablet 650 mg(Linked Group 1) 650 mg, Oral, EVERY 6 HOURS PRN, Starting on 04/24/23 at 2247, Until Discontinued, Pain Mild (1-3), Fever, For temp greater than 100.4 F (38 C), Maximum dose of acetaminophen is 4000 mg from all sources in 24 hours. hydrOXYzine HCl (ATARAX) tablet 25 mg 25 mg, Oral, 2 TIMES DAILY PRN, Starting on 04/28/23 at 1159, Until Discontinued, Itching LORazepam (ATIVAN) injection 4 mg 4 mg, IntraVENous, EVERY 5 MIN PRN, Starting on Vilma 04/26/23 at 0325, Until Discontinued, Seizures, May repeat dose (4 mg) X 1 for seizures lasting more than 5 minutes. Notify provider if administered for seizure. LORazepam (ATIVAN) tablet 0.5 mg 0.5 mg, Oral, EVERY 8 HOURS PRN, Starting on 04/28/23 at 1159, Until Discontinued, seizure activity magnesium sulfate 1000 mg in dextrose 5% 100 mL IVPB 1,000 mg, IntraVENous, at 100 mL/hr, Administer over 1 Hours, PRN, Other, Per IV Magnesium Replacement Protocol, Starting on Sun04/24/23 at 2247, Mg Lab Replacement Action 1.4-1.6 1 gram IVPB x 2 doses (2 gram Total) 1.0-1.3 1 gram IVPB x 4 doses (4 gram Total) <1.0 CALL PHYSICIAN and 1 gram IVPB x 4 doses (4 gram Total) Infuse at 1 gram/hr Repeat Mag level next AM Protocol not for use in Patients with CrCl<30ml/min melatonin tablet 3 mg 3 mg, Oral, NIGHTLY PRN, Starting on 04/28/23 at 1159, Until Discontinued, Sleep ondansetron (ZOFRAN) injection 4 mg(Linked Group 2) 4 mg, IntraVENous, EVERY 6 HOURS PRN, Starting on 04/24/23 at 2247, Until Discontinued, Nausea, Vomiting, Administer if oral route cannot be used. 0230 (Given - Provid er: Sandrine Santana RN) ondansetron (ZOFRAN-ODT) disintegrating tablet 4 mg 4 mg, Oral, EVERY 6 HOURS PRN, Starting on 04/28/23 at 1159, Until Discontinued, Nausea, Vomiting potassium bicarb-citric acid (EFFER-K) effervescent tablet 40 mEq(Linked Group 3) 40 mEq, Oral, PRN, Starting on Sun04/24/23 at 2247, Until Discontinued, Per Potassium Replacement Protocol, Administer [...] M) extended release tablet 40 mEq(Linked Group 3) 40 mEq, Oral, PRN, Starting on Sun04/24/23 at 2247, Until Discontinued, Potassium Replacement, May give alternative linked oral order (ordered as effervescent, packet, or liquid solution) if patient unable to tolerate tablet. K Lab Replacement Action 3.1 to 3.5 40 mEq ORAL x 1 Under 3.1 Refer to IV replacement protocol Recheck K level in AM. Protocol not for use in patients with CrCl less than 30 mL/min. Do not crush, chew, or suck on tablet. Tablet may also be broken in half and each half swallowed separately. potassium chloride 10 mEq/100 mL IVPB (Peripheral Line)(Linked Group 3) 10 mEq, IntraVENous, PRN, Starting on Sun04/24/23 at 2247, Until Discontinued, at 100 mL/hr, Potassium Replacement, K Lab Replacement Action 2.7-3.0 10 mEq IVPB x 6 doses (60 mEq Total) < 2.7 CALL PHYSICIAN and 10 mEq IVPB x 6 doses (60 mEq Total) Infuse at 10 mEq/hr Repeat Potassium lab 1 hour after final administration. Not for use in patients with CrCl less than 30 mL/min. prochlorperazine (COMPAZINE) injection 10 mg 10 mg, IntraVENous, EVERY 6 HOURS PRN, Starting on Sun04/24/23 at 2247, Until Discontinued, Nausea, If administering IV push, administer at a maximum rate of 5 mg/minute. If zofran doesn't help sodium chloride flush 0.9 % injection 10 mL 10 mL, IntraVENous, PRN, Starting on Sun04/24/23 at 2247, Until Discontinued, Line Care, After every IV line use Linked Groups Order Group 1: acetaminophen (TYLENOL) tablet 650 mgJump to med 650 mg, Oral, EVERY 6 HOURS PRN, Starting on Sun04/24/23 at 2247, Until Discontinued, Pain Mild (1-3), Fever, For temp greater than 100.4 F (38 C)
Maximum dose of acetaminophen is 4000 mg from all sources in 24 hours.
Or acetaminophen (TYLENOL) suppository 650 mgJump to med 650 mg, Rectal, EVERY 6 HOURS PRN, Starting on Sun04/24/23 at 2247, Until Discontinued, Pain Mild (1-3), Fever, For temp greater than 100.4 F (38 C)
Administer if oral route cannot be used.
Group 2: ondansetron (ZOFRAN-ODT) disintegrating tablet 4 mg (CANCELED) 4 mg, Oral, EVERY 8 HOURS PRN, Starting on Sun04/24/23 at 2247, Until 04/28/23 at 1201, Nausea, Vomiting Or ondansetron (ZOFRAN) injection 4 mgJump to med 4 mg, IntraVENous, EVERY 6 HOURS PRN, Starting on Sun04/24/23 at 2247, Until Discontinued, Nausea, Vomiting
Administer if oral route cannot be used.
Group 3: potassium chloride (KLOR-CON M) extended release tablet 40 mEqJump to med 40 mEq, Oral, PRN, Starting on Sun04/24/23 at 2247, Until Discontinued, Potassium Replacement
May give alternative linked oral order (ordered as effervescent, packet, or liquid solution) if patient unable to tolerate tablet. K Lab Repla cemen t Action 3.1 to 3.5 40 mEq ORAL x 1 Under 3.1 Refer to IV replacement protocol Recheck K level in AM. Protocol not for use in patients with CrCl less than 30 mL/min. Do not crush, chew, or suck on tablet. Tablet may also be broken in half and each half swallowed separately.
Or potassium bicarb-citric acid (EFFER-K) effervescent tablet 40 mEqJump to med 40 mEq, Oral, PRN, Starting on Sun04/24/23 at 2247, Until Discontinued, Per Potassium Replacement Protocol
Administer [...] med 10 mEq, IntraVENous, PRN, Starting on Sun04/24/23 at 2247, Until Discontinued, at 100 mL/hr, Potassium Replacement
K Lab Replacement Action 2.7-3.0 10 mEq IVPB x 6 doses (60 mEq Total) < 2.7 CALL PHYSICIAN and 10 mEq IVPB x 6 doses (60 mEq Total) Infuse at 10 mEq/hr Repeat Potassium lab 1 hour after final administration. Not for use in patients with CrCl less than 30 mL/min.
FOR RECORDS PERTAINING TO PATIENTS WHO ARE [...] BE BASED ON THE PRIMARY CLINICAL RECORDS. [employer] provides no warranty or guarantee of the accuracy or completeness of information in this document.
== END 2023-05-25 01:37 | disposition home or self-care (01) ==
PROVIDERS: Emergency Provider Emergency Medicine; PCP Family Medicine
DX: Z04.3 Encounter for examination and observation following other accident (principal); K21.9 Gastro-esophageal reflux disease without esophagitis; F71 Moderate intellectual disabilities; G40.909 Epilepsy, unspecified, not intractable, without status epilepticus; R62.50 Unspecified lack of expected normal physiological development in childhood; K59.89 Other specified functional intestinal disorders; G47.00 Insomnia, unspecified; E55.9 Vitamin D deficiency, unspecified; N39.43 Post-void dribbling; R35.1 Nocturia; E78.5 Hyperlipidemia, unspecified; N40.1 Benign prostatic hyperplasia with lower urinary tract symptoms; N13.8 Other obstructive and reflux uropathy; H40.9 Unspecified glaucoma; L30.9 Dermatitis, unspecified; M19.90 Unspecified osteoarthritis, unspecified site; H91.90 Unspecified hearing loss, unspecified ear; Z79.899 Other long term (current) drug therapy
CPT/HCPCS: 70450; 73562; 99284

== ENCOUNTER 2023-06-20 12:06 | Emergency (ER) | payer MEDICARE, MEDICAID, SELFPAY ==
[2023-06-20 12:10] VITALS: BP 120/81; PULSE 95; TEMP 36.6; O2SAT 95; BMI 29.8
--- NOTE | 2023-06-20 12:20 | CT_ITS ---
[address] [address] Patient Name: CHIDI TAYLOR MRN: [id number] date: 1955 Sex: M Assigned Patient Location: ER Current Patient Location: ER Accession/Order Number: [id number] Exam Date: 06/20/2023 13:23 Report Date: 06/20/2023 14:55 At the request of: SAIRA CHAVEZ Procedure: CT abdomen pelvis w con EXAMINATION: CT abdomen pelvis w con HISTORY: Pain, history of bowel obstruction COMPARISON: 04/23/2023 TECHNIQUE: CT images were created with IV contrast. Axial, Coronal, and Sagittal images. Dose reduction techniques were achieved by using automated exposure control and/or adjustment of mA and/or kV according to patient size and/or use of iterative reconstruction technique. FINDINGS: LUNG BASES: Left basilar atelectasis. Coronary atherosclerosis LIVER: No enlargement, atrophy, abnormal density, or significant focal lesion. BILIARY: No visible dilatation or calcification. PANCREAS: No lesion, fluid collection, ductal dilatation, or atrophy. SPLEEN: No enlargement or focal lesion. ADRENALS: No mass or enlargement. KIDNEYS: No enhancing mass hydronephrosis or obstructing nephrolithiasis. Lentiform calcified hypodensity left mid pole kidney, stable nonspecific. Calcified left renal cortical cyst BOWEL/MESENTERY: Marked distention of the stomach and proximal small bowel loops with right lower quadrant suture lines. There is air filling of the right and transverse colon with collapse of the descending and sigmoid colon. Nondilatation of the proximal small bowel from the duodenum to the proximal jejunum, nonspecific AORTA/VASCULAR: No aneurysm or dissection. RETROPERITONEUM: No mass or adenopathy. LYMPH NODES: No adenopathy. URINARY BLADDER: No visible focal wall thickening, lesion, or calculus. PELVIC ORGANS: No visible mass. Pelvic organs appropriate for patient age. ABDOMINAL WALL: No mass or hernia. BONES: No bony lesion or fracture. Moderate to severe diffuse degenerative spondylosis OTHER: Negative. CT/CT abdomen pelvis w con IMPRESSION: Small bowel obstruction with marked dilatation of the stomach and small bowel loops with gaseous distention of the right and transverse colon with collapse of the left and sigmoid colon Electronically authenticated by: DAVID TSANG Date: 06/20/2023 14:55
--- NOTE | 2023-06-20 12:21 | ED.ABDPAIN1 ---
HPI - Abdominal Pain General Chief Complaint: Abdominal Pain Stated Complaint: BOWEL PROBLEMS Time Seen by Provider: 06/20/23 12:17 Source: patient Mode of arrival: walk-in Limitations: no limitations History of Present Illness HPI narrative: 68-year-old male presents from a facility for abdominal pain and an episode of vomiting last night. They are concerned about a bowel obstruction which she has had before. He has MRDD and cannot provide a good history. Apparently he threw up in his bed last night and his pain started 2 or 3 hours ago. No trauma or fever or hematemesis Related Data Home Medications ?Medication ?Instructions ?Recorded ?Confirmed lamotrigine 200 mg tablet 400 mg PO QAM 11/14/22 06/20/23 lamotrigine 200 mg tablet 600 mg PO BEDTIME 11/14/22 06/20/23 (Lamictal) latanoprost 0.005 % eye drops, 1 drp ophthalmic (eye) QPM 11/14/22 06/20/23 emulsion levetiracetam 1,000 mg tablet 2,000 mg PO BEDTIME 11/14/22 06/20/23 (Keppra) oxybutynin chloride 10 mg 10 mg PO DAILY 11/14/22 06/20/23 tablet,extended release 24 hr pantoprazole 40 mg tablet,delayed 40 mg PO DAILY 11/14/22 06/20/23 release (Protonix) polyethylene glycol 3350 17 gram 17 g PO DAILY 11/14/22 06/20/23 oral powder packet (Miralax) primidone 250 mg tablet 375 mg PO BEDTIME 11/14/22 06/20/23 sennosides 8.6 mg capsule (senna) 8.6 mg PO BID 11/14/22 06/20/23 tamsulosin 0.4 mg capsule (Flomax) 0.4 mg PO BID 11/14/22 06/20/23 acetaminophen 500 mg capsule 500 mg PO Q6H PRN fever or pain 04/23/23 06/20/23 finasteride 5 mg tablet 5 mg PO DAILY 04/23/23 06/20/23 hydroxyzine HCl 25 mg tablet 25 mg PO BID PRN itching 04/23/23 06/20/23 lacosamide 150 mg tablet 150 mg PO BID 04/23/23 06/20/23 lorazepam 0.5 mg tablet (Ativan) 0.5 mg PO Q8H PRN seizure activity 04/23/23 06/20/23 melatonin 3 mg capsule 3 mg PO QPM PRN sleep 04/23/23 06/20/23 ondansetron 4 mg disintegrating 4 mg PO Q6H PRN nausea and vomiting 04/23/23 06/20/23 tablet albuterol sulfate 90 mcg/actuation 2 inh inhalation Q4H PRN shortness 04/24/23 06/20/23 aerosol inhaler (ProAir HFA) of breath or wheezing benzonatate 100 mg capsule 100 mg PO .Q8 PRN cough 04/24/23 06/20/23 calcium carbonate 500 mg PO BID 04/24/23 06/20/23 cholecalciferol (vitamin D3) 25 25 mcg PO DAILY 04/24/23 06/20/23 mcg (1,000 unit) tablet cyanocobalamin (vitamin B-12) 1,000 mcg PO DAILY 04/24/23 06/20/23 1,000 mcg tablet diazepam 12.5 mg-15 mg-17.5 mg-20 20 mg IL Q15M PRN seizure activity 04/24/23 06/20/23 mg rectal kit hydrocortisone 2.5 % topical cream 1 applic topical BID PRN skin 04/24/23 06/20/23 irritation inulin-chromium picolinate 2 2 tab PO DAILY 04/24/23 06/20/23 gram-100 mcg chewable tablet levetiracetam 750 mg tablet 1,500 mg PO QAM 04/24/23 06/20/23 (Keppra) magnesium oxide 400 mg (241.3 mg 400 mg PO DAILY 04/24/23 06/20/23 magnesium) tablet meclizine 25 mg tablet 25 mg PO DAILY 04/24/23 06/20/23 primidone 250 mg tablet 250 mg PO QAM 04/24/23 06/20/23 white petrolatum-mineral oil 94 1 applic ophthalmic (eye) .HS 04/24/23 06/20/23 %-3 % eye ointment (Systane Nighttime) linaclotide 145 mcg capsule 145 mcg PO DAILY 06/20/23 06/20/23 (Linzess) Allergies Allergy/AdvReac Type Severity Reaction Status Date / Time clindamycin Allergy Unknown Verified 05/25/23 00:17 Penicillins Allergy Unknown Verified 05/25/23 00:17 Review of Systems ROS Narrative Not obtainable, MRDD PFSH [facility] Medical History (Updated 06/20/23 @ 17:18 by Jay Hall MD) GERD (gastroesophageal reflux disease) ?K21.9 - Gastro-esophageal reflux disease without esophagitis (ICD-10) Intellectual developmental disorder, moderate ?F71 - Moderate intellectual disabilities (ICD-10) Seizure disorder ?G40.909 - Epilepsy, unspecified, not intractable, without status epilepticus (ICD-10) Moderate developmental delay ?R62.50 - Unspecified lack of expected normal physiological development in childhood (ICD-10) Generalized intestinal dysmotility ?K59.89 - Other specified functional intestinal disorders (ICD-10) Oropharyngeal dysphagia ?R13.12 - Dysphagia, oropharyngeal phase (ICD-10) Large bowel obstruction ?K56.609 - Unspecified intestinal obstruction, unspecified as to partial versus complete obstruction (ICD-10) Insomnia ?G47.00 - Insomnia, unspecified (ICD-10) Vitamin D deficiency ?E55.9 - Vitamin D deficiency, unspecified (ICD-10) Post-void dribbling ?N39.43 - Post-void dribbling (ICD-10) Nocturia ?R35.1 - Nocturia (ICD-10) Blepharitis ?H01.009 - Unspecified blepharitis unspecified eye, unspecified eyelid (ICD-10) Hyperlipemia ?E78.5 - Hyperlipidemia, unspecified (ICD-10) BPH w urinary obs/LUTS ?N40.1 - Benign prostatic hyperplasia with lower urinary tract symptoms (ICD-10) ?N13.8 - Other obstructive and reflux uropathy (ICD-10) Hernia ?K46.9 - Unspecified abdominal hernia without obstruction or gangrene (ICD-10) Glaucoma ?H40.9 - Unspecified glaucoma (ICD-10) Cystocele Eczema ?L30.9 - Dermatitis, unspecified (ICD-10) Osteoarthritis ?M19.90 - Unspecified osteoarthritis, unspecified site (ICD-10) Hearing loss ?H91.90 - Unspecified hearing loss, unspecified ear (ICD-10) Social History Smoking status: Never smoker Highest level of school completed/degree received: never attended/kindergarten only Exam Narrative Exam Narrative: Nurses note and vital signs reviewed and patient is not hypoxic. General: The patient appears well and in no apparent distress. Patient is resting comfortably on cart. Skin: Warm, dry, no pallor noted. There is no rash noted. Head: Normocephalic, atraumatic Eye: Normal conjunctiva, no drainage Ears, Nose, Mouth, and Throat: oral mucosa is moist. Nares patent. Cardiovascular: Regular Rate and Rhythm Respiratory: Patient is in no distress, no accessory muscle use, lungs are clear to auscultation, no wheezing, rales or rhonchi Back: non-tender GI: Soft and nondistended. He does not seem to have any palpable tenderness. Musculoskeletal: The patient has no evidence of calf tenderness, no pitting edema, symmetrical pulses noted bilaterally Neurological: Awake and alert Psychiatric: Cooperative Constitutional Vital Signs, click to edit/add: Last Vital Signs Temp 97.8 F 06/20/23 12:10 Pulse 95 H 06/20/23 12:10 Resp 18 06/20/23 12:10 BP 120/81 06/20/23 12:10 Pulse Ox 95 06/20/23 12:10 O2 Del Method Room Air 06/20/23 12:10 Course Vital Signs Vital signs: Vital Signs Temperature 97.8 F 06/20/23 12:10 Pulse Rate 95 H 06/20/23 12:10 Respiratory Rate 18 06/20/23 12:10 Blood Pressure 120/81 06/20/23 12:10 Pulse Oximetry 95 06/20/23 12:10 Oxygen Delivery Method Room Air 06/20/23 12:10 Temperature 97.8 F 06/20/23 12:10 Pulse Rate 95 H 06/20/23 12:10 Respiratory Rate 18 06/20/23 12:10 Blood Pressure 120/81 06/20/23 12:10 Pulse Oximetry 95 06/20/23 12:10 Oxygen Delivery Method Room Air 06/20/23 12:10 MDM - Abdominal Pain MDM Narrative Medical decision making narrative: The patient is found to have a small bowel obstruction on the CAT scan read by the radiologist. NG tube inserted and over 1 L of fluid was extracted. He is hemodynamically stable. I have spoken to the nurse practitioner for the hospitalist service as well as general surgeon Dr. Dawn and the patient is excepted at [facility]. He is stable for transfer. Differential Diagnosis Differential diagnosis: Likely abdominal pain, constipation, diverticulitis, gastroenteritis and small bowel obstruction Lab Data Attestation: I reviewed the patient's lab results. Labs: Lab Results 06/20/23 Range/Units 12:45 WBC 12.6 H (4.0-11.0) 10^3/uL RBC 4.00 L (4.70-6.10) 10^6/uL Hgb 13.2 L (14.0-18.0) g/dL Hct 41.0 L (42.0-54.0) % MCV 102.5 H (80.0-94.0) fL MCH 33.0 (25.9-34.0) pg MCHC 32.2 (29.9-35.2) g/dL RDW 12.5 (11.0-15.0) % Plt Count 297 (150-450) 10^3/uL MPV 9.4 L (9.5-13.5) fL Neut % (Auto) 82.8 H (43.0-75.0) % Lymph % (Auto) 11.0 L (20.5-60.0) % Whiteside % (Auto) 4.6 (1.7-12.0) % Eos % (Auto) 0.9 (0.9-7.0) % Baso % (Auto) 0.4 (0.2-2.0) % Neut # (Auto) 10.4 H (1.4-6.5) 10^3/uL Lymph # (Auto) 1.4 (1.2-3.8) 10^3/uL Whiteside # (Auto) 0.6 (0.3-0.8) 10^3/uL Eos # (Auto) 0.1 (0.0-0.7) 10^3/uL Baso # (Auto) 0.1 (0.0-0.1) 10^3/uL Abs Immat Gran (auto) 0.04 H (0.00-0.03) 10^3/uL Imm/Tot Granulo (auto) 0.3 (0.0-0.5) % Sodium 145 (136-145) mmol/L Potassium 3.8 (3.5-5.1) mmol/L Chloride 106 (98-107) mmol/L Carbon Dioxide 27.3 (21.0-32.0) mmol/L Anion Gap 15.5 BUN 28.0 H (7.0-18.0) mg/dL Creatinine 1.17 (0.70-1.30) mg/dL Est GFR ( Amer) >60 (>=60) Est GFR (Non-Af Amer) >60 (>=60) BUN/Creatinine Ratio 23.9 Glucose 115 H (74-106) mg/dL Calcium 10.1 (8.5-10.1) mg/dL Total Bilirubin 0.3 (0.2-1.0) mg/dL Direct Bilirubin 0.1 (0.0-0.2) mg/dL AST 16 (15-37) U/L ALT 25 (16-63) U/L Alkaline Phosphatase 138 H (46-116) U/L Total Protein 8.0 (6.4-8.2) g/dL Albumin 4.1 (3.4-5.0) g/dL Globulin 3.9 g/dL Albumin/Globulin Ratio 1.1 Amylase 122 H (25-115) U/L Lipase 42.0 (16.0-77.0) U/L Imaging Data CT scan - abdomen: Radiologist's impression: ITS Impressions Abdomen/Pelvis CT 06/20/23 12:20 IMPRESSION: Small bowel obstruction with marked dilatation of the stomach and small bowel loops with gaseous distention of the right and transverse colon with collapse of the left and sigmoid colon Electronically authenticated by: DAVID TSANG Date: 06/20/2023 14:55 Discharge Plan Discharge Chief Complaint: Abdominal Pain Clinical Impression: SBO (small bowel obstruction) Patient Disposition: [facility] Time of Disposition Decision: 17:17 Discharge location: [facility] Condition: Good Mode of Transportation: EMS
[2023-06-20] MEDS: 0.9 % SODIUM CHLORIDE 1,000 ML 100 ML IV (12:50)
[2023-06-20 12:54] LABS: Basophils Absolute Auto 0.1 10^3/uL (0.0-0.1); Basophils Percent Auto 0.4 % (0.2-2.0); Eosinophils Absolute Auto 0.1 10^3/uL (0.0-0.7); Eosinophils Percent Auto 0.9 % (0.9-7.0); Hemoglobin 13.2 g/dL (14.0-18.0); Immature Granulocytes Abs Auto 0.04 10^3/uL (0.00-0.03); Immature Granulocytes Pct Auto 0.3 % (0.0-0.5); Lymphocytes Absolute Auto 1.4 10^3/uL (1.2-3.8); Mean Corpuscular HGB Conc 32.2 g/dL (29.9-35.2); Mean Corpuscular Volume 102.5 fL (80.0-94.0); Mean Platelet Volume 9.4 fL (9.5-13.5); Monocytes Absolute Auto 0.6 10^3/uL (0.3-0.8); Monocytes Percent Auto 4.6 % (1.7-12.0); Neutrophils Absolute Auto 10.4 10^3/uL (1.4-6.5); Neutrophils Percent Auto 82.8 % (43.0-75.0); Platelet Count 297 10^3/uL (150-450); Red Cell Distribution Width 12.5 % (11.0-15.0); White Blood Count 12.6 10^3/uL (4.0-11.0)
[2023-06-20 13:12] LABS: Alanine Aminotransferase 25 U/L (16-63); Albumin Globulin Ratio 1.1; Albumin Level 4.1 g/dL (3.4-5.0); Alkaline Phosphatase 138 U/L (46-116); Amylase 122 U/L (25-115); Anion Gap 15.5; Aspartate Amino Transferase 16 U/L (15-37); BUN Creatinine Ratio 23.9; Bilirubin Direct 0.1 mg/dL (0.0-0.2); Bilirubin Total 0.3 mg/dL (0.2-1.0); Calcium 10.1 mg/dL (8.5-10.1); Carbon Dioxide 27.3 mmol/L (21.0-32.0); Chloride 106 mmol/L (98-107); Estimated GFR (African America >60 (>=60); Estimated GFR (Non-African Ame >60 (>=60); Globulin 3.9 g/dL; Glucose 115 mg/dL (74-106); Potassium 3.8 mmol/L (3.5-5.1); Sodium 145 mmol/L (136-145)
[2023-06-20 17:45] VITALS: BP 122/86; PULSE 89; O2SAT 98
[2023-06-20 17:52] VITALS: O2SAT 98
[2023-06-20 19:03] VITALS: BP 118/72; PULSE 92; O2SAT 16
== END 2023-06-20 21:02 | disposition short-term general hospital (02) ==
PROVIDERS: Emergency Provider Emergency Medicine; PCP Family Medicine
DX: K56.609 Unspecified intestinal obstruction, unspecified as to partial versus complete obstruction (principal); Z79.899 Other long term (current) drug therapy; K21.9 Gastro-esophageal reflux disease without esophagitis; F71 Moderate intellectual disabilities; G40.909 Epilepsy, unspecified, not intractable, without status epilepticus; R62.50 Unspecified lack of expected normal physiological development in childhood; E78.5 Hyperlipidemia, unspecified; N40.1 Benign prostatic hyperplasia with lower urinary tract symptoms; N13.8 Other obstructive and reflux uropathy; R35.1 Nocturia; K46.9 Unspecified abdominal hernia without obstruction or gangrene; H40.9 Unspecified glaucoma; M19.90 Unspecified osteoarthritis, unspecified site; H91.90 Unspecified hearing loss, unspecified ear
CPT/HCPCS: 36415; 74177; 80048; 80076; 82150; 83690; 85025; 96360; 96361; 99285; Q9967

== ENCOUNTER 2024-07-18 07:37 | Outpatient (OUT) | payer MEDICARE, MEDICAID, SELFPAY ==
[2024-07-18 10:26] LABS: Prostate Specific Antigen Dx 0.49 ng/mL (<=4.00)
== END 2024-07-18 07:38 | disposition home or self-care (01) ==
LOC: LAB 07:39
PROVIDERS: PCP Family Medicine; Visit Provider Physician Assistant
DX: N40.1 Benign prostatic hyperplasia with lower urinary tract symptoms (principal)
CPT/HCPCS: 36415; 84153

== ENCOUNTER 2025-01-18 08:14 | Emergency (ER) | payer MEDICARE, MEDICAID, SELFPAY ==
[2025-01-18 08:16] VITALS: BP 137/77; PULSE 87; TEMP 36.6; O2SAT 96; BMI 37.1
--- NOTE | 2025-01-18 08:31 | CT_ITS ---
The [address] [address] Patient Name: CHIDI TAYLOR MRN: [id number] date: 1955 Sex: M Assigned Patient Location: ER Current Patient Location: ER Accession/Order Number: [id number] Exam Date: 01/18/2025 11:00 Report Date: 01/18/2025 11:45 At the request of: YONI ONEAL Procedure: CT abdomen pelvis wo con CT Abdomen and Pelvis withoutcontrast TECHNIQUE: Axial imaging with 2-D reconstruction. The CT exam was performed using one or more the following dose reduction techniques: Automated exposure control, adjustment of the MA and/or Kv according to patient size, or use of the iterative reconstruction technique. COMPARISON: 06/20/2023 History: Abdominal pain. Nausea and vomiting. History of small bowel obstruction. Diarrhea. 3 days duration. LIMITATIONS: None LOWER THORAX Unremarkable LIVER: Unremarkable GALLBLADDER: No gallbladder abnormality identified. BILE DUCTS: No dilatation SPLEEN: Unremarkable PANCREAS: Unremarkable ADRENAL GLANDS: Unremarkable KIDNEYS:Chronic calcific changes of the right kidney. No nephrolithiasis or obstructive uropathy. AORTA: No abdominal aortic aneurysm identified. Small volume of atherosclerosis. RETROPERITONEUM: No significant retroperitoneal abnormalities identified. MESENTERY:Unremarkable STOMACH:Gastric distention. Fluid and debris present within the stomach. SMALL BOWEL: The small bowel loops are nondistended. Left bowel anastomosis. APPENDIX: The appendix is normal. COLON: Ascending colon distended containing fluid and gas. Transverse colon distended containing fluid and gas. Descending colon mildly distended containing fluid and gas. Sigmoid colon nondistended. Rectum contains fluid and gas. URINARY BLADDER: Urinary bladder is unremarkable. REPRODUCTIVE SYSTEM: Reproductive structures are unremarkable. PNEUMOPERITONEUM: None PERITONEAL FLUID:None BONY STRUCTURES: Unremarkable ABDOMINAL WALL: Unremarkable CT/CT abdomen pelvis wo con IMPRESSION: Mild distention of the colon containing multiple fluid levels consistent with diarrheal illness. Nondistended small bowel. Distended stomach containing fluid and debris. May suggest gastroparesis. Impression dictated by: Bolivar Feldman M.D. 01/18/2025 11:45 AM Dictation Location[facility] Electronically authenticated by: [id number] Y Date: 01/18/2025 11:45
--- NOTE | 2025-01-18 08:33 | ED.GENADUL1 ---
HPI HPI - General Adult General Chief complaint: Nausea/Vomiting/Diarrhea Stated complaint: BOWEL OBSTRUCTION Time Seen by Provider: 01/18/25 08:17 Source: other Source information: ems Mode of arrival: walk-in History of Present Illness HPI narrative: cc - diarrhea, vomiting, abd pain, hx sbo Pt sent from [facility] for evaluation out of concern for possible small bowel obstruction. Pt had diarrhea for three days and then vomited this morning after getting his meds. He previously had small bowel obstruction in 2023. He complains of mild, diffuse/non-focal abdominal pain. Related Data Home Medications ?Medication ?Instructions ?Recorded ?Confirmed lamotrigine 200 mg tablet 400 mg PO QAM 11/14/22 06/20/23 lamotrigine 200 mg tablet 600 mg PO BEDTIME 11/14/22 06/20/23 (Lamictal) latanoprost 0.005 % eye drops, 1 drp ophthalmic (eye) QPM 11/14/22 06/20/23 emulsion levetiracetam 1,000 mg tablet 2,000 mg PO BEDTIME 11/14/22 06/20/23 (Keppra) oxybutynin chloride 10 mg 10 mg PO DAILY 11/14/22 06/20/23 tablet,extended release 24 hr pantoprazole 40 mg tablet,delayed 40 mg PO DAILY 11/14/22 06/20/23 release (Protonix) polyethylene glycol 3350 17 gram 17 g PO DAILY 11/14/22 06/20/23 oral powder packet (Miralax) primidone 250 mg tablet 375 mg PO BEDTIME 11/14/22 06/20/23 sennosides 8.6 mg capsule (senna) 8.6 mg PO BID 11/14/22 06/20/23 tamsulosin 0.4 mg capsule (Flomax) 0.4 mg PO BID 11/14/22 06/20/23 acetaminophen 500 mg capsule 500 mg PO Q6H PRN fever or pain 04/23/23 06/20/23 finasteride 5 mg tablet 5 mg PO DAILY 04/23/23 06/20/23 hydroxyzine HCl 25 mg tablet 25 mg PO BID PRN itching 04/23/23 06/20/23 lacosamide 150 mg tablet 150 mg PO BID 04/23/23 06/20/23 lorazepam 0.5 mg tablet (Ativan) 0.5 mg PO Q8H PRN seizure activity 04/23/23 06/20/23 melatonin 3 mg capsule 3 mg PO QPM PRN sleep 04/23/23 06/20/23 ondansetron 4 mg disintegrating 4 mg PO Q6H PRN nausea and vomiting 04/23/23 06/20/23 tablet albuterol sulfate 90 mcg/actuation 2 inh inhalation Q4H PRN shortness 04/24/23 06/20/23 aerosol inhaler (ProAir HFA) of breath or wheezing benzonatate 100 mg capsule 100 mg PO .Q8 PRN cough 04/24/23 06/20/23 calcium carbonate 500 mg PO BID 04/24/23 06/20/23 cholecalciferol (vitamin D3) 25 25 mcg PO DAILY 04/24/23 06/20/23 mcg (1,000 unit) tablet cyanocobalamin (vitamin B-12) 1,000 mcg PO DAILY 04/24/23 06/20/23 1,000 mcg tablet diazepam 12.5 mg-15 mg-17.5 mg-20 20 mg IN Q15M PRN seizure activity 04/24/23 06/20/23 mg rectal kit hydrocortisone 2.5 % topical cream 1 applic topical BID PRN skin 04/24/23 06/20/23 irritation inulin-chromium picolinate 2 2 tab PO DAILY 04/24/23 06/20/23 gram-100 mcg chewable tablet levetiracetam 750 mg tablet 1,500 mg PO QAM 04/24/23 06/20/23 (Keppra) magnesium oxide 400 mg (241.3 mg 400 mg PO DAILY 04/24/23 06/20/23 magnesium) tablet meclizine 25 mg tablet 25 mg PO DAILY 04/24/23 06/20/23 primidone 250 mg tablet 250 mg PO QAM 04/24/23 06/20/23 white petrolatum-mineral oil 94 1 applic ophthalmic (eye) .HS 04/24/23 06/20/23 %-3 % eye ointment (Systane Nighttime) linaclotide 145 mcg capsule 145 mcg PO DAILY 06/20/23 06/20/23 (Linzess) Previous Rx's ?Medication ?Instructions ?Recorded cephalexin 500 mg capsule 500 mg PO BID 7 days #14 caps 01/18/25 Allergies Allergy/AdvReac Type Severity Reaction Status Date / Time clindamycin Allergy Unknown Verified 05/25/23 00:17 Penicillins Allergy Unknown Verified 05/25/23 00:17 Opioid HPI Opioid Management Most Recent Opioid Data: Last Pain Scale 0 06/20/23, 12:58 PFSH PFS Medical History (Updated 01/18/25 @ 12:06 by George Banks) GERD (gastroesophageal reflux disease) ?K21.9 - Gastro-esophageal reflux disease without esophagitis (ICD-10) Intellectual developmental disorder, moderate ?F71 - Moderate intellectual disabilities (ICD-10) Seizure disorder ?G40.909 - Epilepsy, unspecified, not intractable, without status epilepticus (ICD-10) Moderate developmental delay ?R62.50 - Unspecified lack of expected normal physiological development in childhood (ICD-10) Generalized intestinal dysmotility ?K59.89 - Other specified functional intestinal disorders (ICD-10) Oropharyngeal dysphagia ?R13.12 - Dysphagia, oropharyngeal phase (ICD-10) Large bowel obstruction ?K56.609 - Unspecified intestinal obstruction, unspecified as to partial versus complete obstruction (ICD-10) Insomnia ?G47.00 - Insomnia, unspecified (ICD-10) Vitamin D deficiency ?E55.9 - Vitamin D deficiency, unspecified (ICD-10) Post-void dribbling ?N39.43 - Post-void dribbling (ICD-10) Nocturia ?R35.1 - Nocturia (ICD-10) Blepharitis ?H01.009 - Unspecified blepharitis unspecified eye, unspecified eyelid (ICD-10) Hyperlipemia ?E78.5 - Hyperlipidemia, unspecified (ICD-10) BPH w urinary obs/LUTS ?N40.1 - Benign prostatic hyperplasia with lower urinary tract symptoms (ICD-10) ?N13.8 - Other obstructive and reflux uropathy (ICD-10) Hernia ?K46.9 - Unspecified abdominal hernia without obstruction or gangrene (ICD-10) Glaucoma ?H40.9 - Unspecified glaucoma (ICD-10) Cystocele Eczema ?L30.9 - Dermatitis, unspecified (ICD-10) Osteoarthritis ?M19.90 - Unspecified osteoarthritis, unspecified site (ICD-10) Hearing loss ?H91.90 - Unspecified hearing loss, unspecified ear (ICD-10) Social History Smoking status: Never smoker Highest level of school completed/degree received: never attended/kindergarten only Exam Narrative Exam Narrative: Nurses notes and vital signs reviewed and patient is not hypoxic. afebrile General: Well-appearing and in no apparent distress. Skin: Warm, dry, no pallor noted. Eye: Pupils are equal, round and EOMI. No scleral icterus. Ears, Nose, Mouth, and Throat: Oral mucosa is moist Cardiovascular: Regular Rate and Rhythm without murmur, gallop or rub. Respiratory: No accessory muscle use or respiratory distress. Lungs are clear to auscultation, no wheezing, rales or rhonchi Back: No CVA tenderness Musculoskeletal: normal ROM, no calf or popliteal tenderness, no lower extremity edema/swelling GI: Abdomen is soft, non-distended. Active bowel sounds. Numerous scars from prior surgeries. No masses appreciated. Mild diffuse tenderness to palpation. No rebound, guarding, or rigidity noted. Neurological: A&O x4. No cranial nerve dysfunction observed. No truncal ataxia. Moves all extremities. Sensation intact. Psychiatric: Cooperative and interactive. Normal mood and affect. Constitutional Vital Signs, click to edit/add: Last Vital Signs Temp 98 F 01/18/25 08:16 Pulse 87 01/18/25 08:16 Resp 20 01/18/25 08:16 BP 137/77 01/18/25 08:16 Pulse Ox 96 01/18/25 08:16 O2 Del Method Room Air 01/18/25 08:16 Course Vital Signs Vital signs: Vital Signs Temperature 98 F 01/18/25 08:16 Pulse Rate 87 01/18/25 08:16 Respiratory Rate 20 01/18/25 08:16 Blood Pressure 137/77 01/18/25 08:16 Pulse Oximetry 96 01/18/25 08:16 Oxygen Delivery Method Room Air 01/18/25 08:16 Temperature 98 F 01/18/25 08:16 Pulse Rate 87 01/18/25 08:16 Respiratory Rate 20 01/18/25 08:16 Blood Pressure 137/77 01/18/25 08:16 Pulse Oximetry 96 01/18/25 08:16 Oxygen Delivery Method Room Air 01/18/25 08:16 Medical Decision Making [facility] Narrative Medical decision making narrative: Patient with history of multiple abdominal surgeries and prior small bowel obstruction presents for evaluation from the local halfway in which he resides with concern for possible SBO. According to the report that we got from the custodial, the patient has had multiple abdominal surgeries and some of the local surgeons will no longer see him and so he typically goes to tertiary facilities for evaluation and monitoring with NG tube if he does develop SBO. Pt ordered to undergo CT scanning of abd and pelvis with oral & IV contrast. Blood drawn and sent for testing. Through a peripheral IV he received 1L NS IVF and IV Zofran. CT abdomen pelvis = per radiologist, mild distention of the colon containing multiple fluid levels consistent with diarrheal illness. Nondistended small bowel. Distended stomach containing fluid and debris. May suggest gastroparesis. Patient's blood and urine testing revealed minimally elevated white blood cell count at 13, unremarkable CMP, urine that suggested possible infection with 5-10 white cells, few squamous epithelial cells, moderate bacteria, trace mucus and small occult blood. Urine culture is pending. The patient was given a single dose of Rocephin IV and I prescribed some Keflex for him to take until the culture is resulted. Stool culture and other diarrheal results are pending Patient was discharged back to the custodial in stable and improved condition. Lab Data Lab results reviewed: Yes I reviewed the patient's lab results Labs: Lab Results 01/18/25 01/18/25 01/18/25 Range/Units 09:10 09:32 10:10 WBC 13.0 H (4.0-11.0) 10^3/uL RBC 3.72 L (4.70-6.10) 10^6/uL Hgb 11.9 L (14.0-18.0) g/dL Hct 36.6 L (42.0-54.0) % MCV 98.4 H (80.0-94.0) fL MCH 32.0 (25.9-34.0) pg MCHC 32.5 (29.9-35.2) g/dL RDW 13.0 (11.0-15.0) % Plt Count 273 (150-450) 10^3/uL MPV 9.0 L (9.5-13.5) fL Neut % (Auto) 70.9 (43.0-75.0) % Lymph % (Auto) 17.1 L (20.5-60.0) % [place] % (Auto) 7.8 (1.7-12.0) % Eos % (Auto) 3.5 (0.9-7.0) % Baso % (Auto) 0.5 (0.2-2.0) % Neut # (Auto) 9.2 H (1.4-6.5) 10^3/uL Lymph # (Auto) 2.2 (1.2-3.8) 10^3/uL [place] # (Auto) 1.0 H (0.3-0.8) 10^3/uL Eos # (Auto) 0.5 (0.0-0.7) 10^3/uL Baso # (Auto) 0.1 (0.0-0.1) 10^3/uL Abs Immat Gran (auto) 0.03 (0.00-0.03) 10^3/uL Imm/Tot Granulo (auto) 0.2 (0.0-0.5) % Sodium 141 (136-145) mmol/L Potassium 3.6 (3.5-5.1) mmol/L Chloride 111 H (98-107) mmol/L Carbon Dioxide 18.5 L (21.0-32.0) mmol/L Anion Gap 15.1 BUN 18.0 (7.0-18.0) mg/dL Creatinine 0.87 (0.70-1.30) mg/dL Est GFR ( Amer) >60 (>=60 mL/min/1.73m^2) Est GFR (Non-Af Amer) >60 (>=60 mL/min/1.73m^2) BUN/Creatinine Ratio 20.7 Glucose 108 H (74-106) mg/dL Lactate 1.3 (0.4-2.0) mmol/L Calcium 8.6 (8.5-10.1) mg/dL Total Bilirubin 0.2 (0.2-1.0) mg/dL AST 12 L (15-37) U/L ALT 20 (16-63) U/L Alkaline Phosphatase 165 H (46-116) U/L Total Protein 7.1 (6.4-8.2) g/dL Albumin 3.2 L (3.4-5.0) g/dL Globulin 3.9 g/dL Albumin/Globulin Ratio 0.8 Urine Color Yellow (YELLOW) Urine Clarity Clear (CLEAR) Urine pH 6.0 (5.0-9.0) Ur Specific [place] >=1.030 A (1.005-1.025) Urine Protein Trace (NEG/TRACE) mg/dL Urine Glucose (UA) Negative (NEGATIVE) mg/dL Urine Ketones Negative (NEGATIVE) mg/dL Urine Occult Blood Small A (NEGATIVE) Urine Nitrite Negative (NEGATIVE) Urine Bilirubin Negative (NEGATIVE) Urine Urobilinogen 0.2 (0.2-1.0) EU/dL Ur Leukocyte Esterase Trace A (NEGATIVE) Urine RBC 0-2 (0-2) #/HPF Urine WBC 5-10 A (NONE SEEN) #/HPF Ur Squamous Epith Cells Few A (NONE/RARE) #/LPF Urine Crystals None seen (None Seen) #/HPF Urine Bacteria Moderate A (NONE SEEN) #/HPF Urine Casts None seen (NONE SEEN) #/LPF Urine Mucus Trace A (NONE SEEN) Ur Culture Indicated? Yes-[facility] [place] Stool Occult Blood Negative C. difficile Toxin PCR Negative Discharge Plan Discharge Chief Complaint: Nausea/Vomiting/Diarrhea Clinical Impression: Enteritis, Acute UTI Patient Disposition: Home, Self-Care Time of Disposition Decision: 12:06 Prescriptions / Home Meds: New cephalexin 500 mg capsule 500 mg PO BID 7 Days Qty: 14 0RF No Action acetaminophen 500 mg capsule 500 mg PO Q6H PRN (Reason: fever or pain) hydroxyzine HCl 25 mg tablet 25 mg PO BID PRN (Reason: itching) lorazepam [Ativan] 0.5 mg tablet 0.5 mg PO Q8H PRN (Reason: seizure activity) melatonin 3 mg capsule 3 mg PO QPM PRN (Reason: sleep) ondansetron 4 mg tablet,disintegrating 4 mg PO Q6H PRN (Reason: nausea and vomiting) finasteride 5 mg tablet 5 mg PO DAILY Patient Comments: AT 1700 lacosamide 150 mg tablet 150 mg PO BID Patient Comments: 0700, 1700 benzonatate 100 mg capsule 100 mg PO .Q8 PRN (Reason: cough) magnesium oxide 400 mg (241.3 mg magnesium) tablet 400 mg PO DAILY Patient Comments: 0700 meclizine 25 mg tablet 25 mg PO DAILY Patient Comments: AT 0700 Systane Nighttime 94-3 % ointment 1 applic ophthalmic (eye) .HS Patient Comments: AT 1700 calcium carbonate 500 mg calcium (1,250 mg) tablet,chewable 500 mg PO BID Patient Comments: 0700, 1700 hydrocortisone 2.5 % cream 1 applic topical BID PRN (Reason: skin irritation) diazepam 12.5-15-17.5-20 mg kit 20 mg IN Q15M PRN (Reason: seizure activity) cyanocobalamin (vitamin B-12) 1,000 mcg tablet 1,000 mcg PO DAILY cholecalciferol (vitamin D3) 25 mcg (1,000 unit) tablet 25 mcg PO DAILY Patient Comments: 0700 albuterol sulfate [ProAir HFA] 90 mcg/actuation HFA aerosol inhaler 2 inh inhalation Q4H PRN (Reason: shortness of breath or wheezing) levetiracetam [Keppra] 750 mg tablet 1,500 mg PO QAM Rx Instructions: AT 0700 primidone 250 mg tablet 250 mg PO QAM Rx Instructions: AT 0700 inulin-chromium picolinate 2-100 gram-mcg tablet,chewable 2 tab PO DAILY Rx Instructions: AT 0700 Linzess 145 mcg capsule 145 mcg PO DAILY lamotrigine 200 mg tablet 400 mg PO QAM Patient Comments: 0700 lamotrigine [Lamictal] 200 mg tablet 600 mg PO BEDTIME Patient Comments: AT 1700 latanoprost 0.005 % drops, emulsion 1 drp ophthalmic (eye) QPM Patient Comments: AT 1700 levetiracetam [Keppra] 1,000 mg tablet 2,000 mg PO BEDTIME Patient Comments: AT 1700 oxybutynin chloride 10 mg tablet extended release 24hr 10 mg PO DAILY Patient Comments: AT 0700 pantoprazole [Protonix] 40 mg tablet,delayed release (DR/EC) 40 mg PO DAILY Patient Comments: AT 0700 polyethylene glycol 3350 [Miralax] 17 gram powder in packet 17 g PO DAILY Patient Comments: AT 700 primidone 250 mg tablet 375 mg PO BEDTIME Patient Comments: AT 1700 senna 8.6 mg capsule 8.6 mg PO BID Patient Comments: 0700, 1700 tamsulosin [Flomax] 0.4 mg capsule 0.4 mg PO BID Patient Comments: 0700, 1700 Print Language: Croatian Instructions: Acute Diarrhea (ED), Enteritis (ED), Urinary Tract Infection in Older Adults (ED) Referrals: Carson Matamoros MD [Primary Care Provider, Family Practice] - 1 week
[2025-01-18] MEDS: 0.9 % SODIUM CHLORIDE 1,000 ML 999 ML IV (08:57)
[2025-01-18 09:39] LABS: Alanine Aminotransferase 20 U/L (16-63); Albumin Globulin Ratio 0.8; Albumin Level 3.2 g/dL (3.4-5.0); Alkaline Phosphatase 165 U/L (46-116); Anion Gap 15.1; Aspartate Amino Transferase 12 U/L (15-37); Blood Urea Nitrogen 18.0 mg/dL (7.0-18.0); Calcium 8.6 mg/dL (8.5-10.1); Carbon Dioxide 18.5 mmol/L (21.0-32.0); Chloride 111 mmol/L (98-107); Estimated GFR (African America >60 (>=60 mL/min/1.73m^2); Estimated GFR (Non-African Ame >60 (>=60 mL/min/1.73m^2); Globulin 3.9 g/dL; Glucose 108 mg/dL (74-106); Potassium 3.6 mmol/L (3.5-5.1); Sodium 141 mmol/L (136-145); Total Protein 7.1 g/dL (6.4-8.2)
[2025-01-18 09:42] LABS: Lactate/Lactic Acid 1.3 mmol/L (0.4-2.0)
[2025-01-18 09:42] LABS: Glucose Urine UA NEGATIVE (NEGATIVE)
[2025-01-18 09:58] LABS: Crystals Seen? None Seen #/HPF (None Seen)
[2025-01-18 09:59] LABS: Cast Seen? NONE SEEN #/LPF (NONE SEEN); Urine Culture Indicated YES-FRMC
[2025-01-18 10:20] LABS: Hematocrit 36.6 % (42.0-54.0); Hemoglobin 11.9 g/dL (14.0-18.0); Immature Granulocytes Abs Auto 0.03 10^3/uL (0.00-0.03); Immature Granulocytes Pct Auto 0.2 % (0.0-0.5); Lymphocytes Absolute Auto 2.2 10^3/uL (1.2-3.8); Mean Corpuscular HGB Conc 32.5 g/dL (29.9-35.2); Mean Corpuscular Hemoglobin 32.0 pg (25.9-34.0); Mean Corpuscular Volume 98.4 fL (80.0-94.0); Platelet Count 273 10^3/uL (150-450); Red Blood Count 3.72 10^6/uL (4.70-6.10); White Blood Count 13.0 10^3/uL (4.0-11.0)
[2025-01-18 11:58] LABS: C. Difficile PCR NEGATIVE
--- OUTSIDE RECORDS SUMMARY | 2025-01-18 12:20 | XMS_ITS | CCD ---
Author Organization [facility] Care Team Providers Care Tuck Pointer Helper Name Role Phone SAYON, PIEDAD Unavailable Unavailable SAYON, PIEDAD Unavailable Unavailable NO FAMILY DOCTOR, NO FAMILY DOCTOR Unavailable Unavailable SAYON, PIEDAD Unavailable Unavailable NO FAMILY DOCTOR, NO FAMILY DOCTOR Unavailable Unavailable SAYON, PIEDAD Unavailable Unavailable Tyra Robles Primary Care Provider Tyra Robles Primary Care Provider [phone] Tyra Robles DO Primary Care Provider CARSON DIOR Primary Care Physician Mónica Woodward Unavailable Unavailable NADERER, DR CARSON Perez Admitting Unavailable NADERER, DR CARSON Perez Primary Care Unavailable DES PLAINES, DR DAVID Ridley Consulting Unavailable NADERER, DR [...] BELTRÁN Consulting Unavailable MOR FAULKNER Consulting Unavailable Tyra Robles DO Primary Care Provider Tyra Robles DO Primary Care Provider Carson Dior MD Primary Care Provider Carson Dior MD Primary Care Provider CARSON DIOR Primary Care Unavailabl BALJINDER Moore Consulting Unavailable KELLY OWUSU Attending Unavailable RODRIGUEZ, RAEANN K Admitting Unavailable TOSHIA CHO Consulting Unavailable RODRIGUEZ, RAEANN K Consulting Unavailable PEBBLES LIMA Consulting Unavailable ANGELA ARIZMENDI Consulting Unavailable BAIS, DONNIE Consulting Unavailable BOLIVAR VALDOVINOS Admitting Unavailable CARSON DIOR Primary Care Unavailabl e CARLOS WOODWARD Referring Unavailable ORLOP, CARMEN Hernandez Attending Unavailable LADI SAAB Consulting Unavailable CARSON DIOR REJI Primary Care Unavailabl e ORLOPCARMEN Admitting Unavailable ORLOAbbie, CARMEN Hernandez Attending Unavailable DIAB, CÉSAR Referring Unavailable DAVID BORGES Consulting Unavailable BAIS, DONNIE Consulting Unavailable YAVANESSA LOMAX A Consulting Unavailable Abbie SPEAR Consulting Unavailable HENRY DAVIES Consulting Unavailable CARSON DIOR Primary Care Unavailabl e RODRIGUEZ, RAEANN K Admitting Unavailable TRACE MENDOZA Consulting Unavailable ORPNA, CARMEN Hernandez Attending Unavailable SAIRA CHAVEZ Referring Unavailable JOCE MENDOZA Consulting Unavailable Gunner BHATT, Stacy Unavailable Carson Dior Unavailable Unavailable Primary Care Provider UnavailCarson Fleming MD Primary Care Provider [phone] AFTAB BALDERAS Attending Unavail able PROVIDER, UNKNOWN Admitting Unavailable PROVIDER, UNKNOWN Admitting Unavailable YOLANDA STARKS Attending Unavailable FIDELIA BRUMFIELD Attending Unavailab le PROVIDER, UNKNOWN Admitting Unavailable Carson Dior MD Primary Care Provider Carson Dior MD Primary Care Provider [phone] Carson Dior MD Primary Care Provider [phone] Carson Dior MD Unavailable Carson Dior MD Primary Care Provider [phone] LEONELA CASTILLO Admitting Unavailable LUZ MARINA RIOS Referring Unavailable CARSON DIOR Primary Care Unavailable ANDREAS JIMENEZ Consulting Unavailable CALIXTO RODRIGUEZ Attending Unavailable CARSON DIOR Attending Unavailable LUÍS CHINO Attending Unavailable SHAWNEE BUTLER Attending Unavailable CARSON DIOR Attending Unavailable NADERER, CARSON Attending Unavailable NADERER, CARSON Attending Unavailable KAYLEIGH, SHAWNEE Attending Unavailable NADERER, CARSON Attending Unavailable DOUGIE CASTANON Attending Unavailab albert Orzekayleigh, Ana Tanner Attending Unavailable Orzech, Ana Tanner Attending Unavailable DOUGIE CASTANON Attending Unavailab albert Patrick, Ana Tanner Attending Unavailable NADERERick, CARSON [place]IR[place]KS Primary Care Unavailabl e IACOB, LYLA Admitting Unavailable IACOB, LYLA Attending Unavailable BOLIVAR QUIGLEY Consulting Unavailable LIZZ MODI Consulting Unavailable KAYLEIGH, SHAWNEE Referring Unavailable NADERER, CARSON [place]IR[place]KS Primary Care Unavailabl e KAYLEIGH, SHAWNEE Referring Unavailable NADERER, CARSON [place] Primary Care Unavailabl e KAYLEIGH, SHAWNEE Referring Unavailable NADERER, CARSON [place] Primary Care Unavailabl e KAYLEIGH, SHAWNEE Referring Unavailable NADERER, CARSON [place] Primary Care Unavailabl e UMA CLARK Referring Unavailable NADERER, CARSON REJI Primary Care Unavailabl e NADERER, CARSON CHOONY Referring Unavailabl e NADERER, CARSON [place]IR[place]KS Primary Care Unavailabl e NADERER, CARSON CHOONY Referring Unavailabl e NADERER, [place] Primary Care Unavailabl e KAYLEIGH, SHAWNEE Referring Unavailable NADERER, [place] Primary Care Unavailabl e NADERER, [place] Primary Care Unavailabl e CINTRA, LOKI G Attending Unavailable [facility]ANTH[facility], CARSON [place] Primary Care Unavailabl e YANA CORNEJO Admitting Unavailable SEAYANA VANEGAS Attending Unavailable NAZEMI I, ILANA Consulting Unavailable NADCARSON MAKI FAIR[place]AN[place] Primary Care Unavailabl e LIBBY CORNEJOOPHER [place] Admitting Unavailable SEAYANA VANEGAS Attending Unavailable NAZEMI I, ILANA Consulting Unavailable NADERECARSON Cabrera [place]IR[place]KS Primary Care Unavailabl e IACOB, LYLA Admitting Unavailable IACOB, LYLA Attending Unavailable JAMI SAWANT Consulting Unavailable NADERECARSON Cabrera [place]IR[place]ANKS Primary Care Unavailabl e SEAYANA VANEGAS Admitting Unavailable SEAYANA VANEGAS Attending Unavailable JAMI SAWANT Consulting Unavailable LIZZ MODI Consulting Unavailable UMA CLARK Attending Unavailable UMA CLARK Referring Unavailable UMA CLARK Attending Unavailable Carson Dior MD Primary Care Provider Carson Dior MD Unavailable LUZ MARINA RIOS Referring Unavailable NADERER, CARSON Primary Care Unavailable GUIDO, RUQIYYA T Referring Unavailable NADERER, CARSON Primary Care Unavailable DIAN RANDALL Referring Unavailable NADERERick, CARSON Primary Care Unavailable PROVIDER, UNKNOWN Referring Unavailable NADERERick, CARSON Primary Care Unavailable JEFF, MUHAMID M Referring Unavailable NADERER, CARSON Primary Care Unavailable NADERER, CARSON Primary Care Unavailable LUZ MARINA RIOS Attending Unavailable NADERER, CARSON Primary Care Unavailable IRWIN GE Consulting Unavailable GUIDO, RUQIYYA T Admitting Unavailable GUIDO, RUQIYYA T Attending Unavailable SATURNINO, CARSON Primary Care Unavailable DIAN RANDALL Attending Unavailable NADERER, CARSON Primary Care Unavailable IRWIN GE Consulting Unavailable LEONELA CASTILLO Admitting Unavailable ABHI MOSCOSO Attending Unavailable NADERE, CARSON Primary Care Unavailable RUBIA SINGLETARY Attending Unavailable NADERE, CARSON Primary Care Unavailable DEANGELO ANDRE Consulting Unavailable ELIEZER TRUONG Admitting Unavailable JEFF, AVIHAMID M Attending Unavailable DIAN RANDALL Attending Unavailable NADERE, CARSON Primary Care Unavailable Allergies Allergy ClassificationReported Allergen(s)Allergy TypeDate of OnsetReaction(s) FacilityLincosamides (antibiotic) (1 source)ClindamycinDrug Ocntlzc14-44-1122SvsnKwkbq HealthPenicillins (antibiotic) (1 source)PenicillinsDrug Crrftbg08-90-8101Qwfvx, Shortness Of BreathMer Health (20 sources)Clindamycin; Translations: [clindamycin]Drug Rcmhyrl84-77-6446Jqvu, Hives, OtherMer[facility]- [place], [place] (20 sources)Penicillins; Translations: [penicillins]Propensity to adverse reactions to drnq43-49-6221Cbceh, Shortness Of Breath, SwellingMercy Health- [place], [place] (16 sources)Nuts 1Food intoleranceUnknown (qualifier value)[facility] HospitalComment on above:Due to GI issues (1 source)ClindamycinDrug Ihhdpri18-09-7866[facility] (1 source)PenicillinsDrug allergy (disorder)22-94-8807MdpSelect [facility] (20 sources)PenicillinsPropensity to adverse reactions to nwoq01-21-6288Vlwrn, Shortness Of Breath, SwellingBON [facility] (20 sources)Hypochlorite; Translations: [SODIUM HYPOCHLORITE]Drug Allergy 09-22-3788Tufiz, ItchingBON [facility] (3 sources)bleach [Other]Propensity to adverse quzhzgoyf94-13-2862Totvuikly Clinic (20 sources)HypochloriteDrug Snahqzs31-98-4555Qqvnv, ItchingBerger Hospital (20 sources)Penicillins; Translations: [penicillins]Propensity to adverse reactions to audu40-52-3649Grcigbemsn Breathing, Hives, Swelling, Other [facility] (5 sources)Tree Based Nuts; Translations: [TREE BASED NUTS]Propensity to adverse gtvqegtlu04-27-1210JjkywVphgsm (19 sources)Other; Translations: [OTHER]Allergy to mhqsxysyd48-87-3933DPCL [facility] Work Phone: (6 sources)PenicillinsPropensity to adverse reactions to tqql75-63-6205Ayiey, Shortness Of Breath, Angioedema, Other (See Comments), Rash, SwellingProMedica Health System (8 sources)tree nut, unspecified; Translations: [TREE NUTS]Propensity to adverse reactions to ufwr23-75-4283PkuGtokti Health System (3 sources)BLEACH (SODIUM HYPOCHLORITE); Translations: [BLEACH (SODIUM HYPOCHLORITE)]Propensity to adverse reactions to drug (disorder)10-10-2024 [facility] (1 source)Nuts (not including peanuts); Translations: [Nuts]Food allergy (disorder)[facility] Repository Medications Current Medications MedicationDrug Class(es)DatesSig (Normalized)Sig (Original)acetaminophen 325 mg oral tablet (20 sources)Start: 11-79-5461ehuw 1 tablet by mouth every six hours as needed for pain and goskh800 mg, oral, Every 6 hours PRN, mild pain - pain scale 1-3, temperature greater than 38 C, Starting on 01/04/25 at 2323, [Warning: Total Acetaminophen not to exceed more than 4 grams (4000 mg) in24 hours]Start: 62-69-9077Vmhdx: 31-61-8313xqzirskvribzm (TYLENOL) tablet 650 mgStart: 43-76-0921qzvxrdsrepzcn (TYLENOL) tablet 650 mgStart: 89-65-3955ttbzyetcayoqx (TYLENOL) tablet 650 mgStart: 17-98-4990dgxeewgtplhvn (TYLENOL) tablet 650 mg Start: 06-11-2023 End: 02-56-5911zkywzodrkaclh (TYLENOL) tablet 650 mgStart: 04-24-2023 acetaminophen (TYLENOL) tablet 650 mgStart: 19-79-3537lmvvqwlkfdopk (TYLENOL) tablet 650 mgStart: 38-44-4339qtofpdncpypjc (TYLENOL) tablet 650 mgStart: 44-12-6854budw 650 mg by mouth every four hours as needed for painacetaminophen 650 mg, Oral, q4hr, PRN as needed for pain, Refills(s) 0 Start Date: 06/11/21 Status: Ordered Repeat number: 1Start: 13-17-4025fzee 650 mg by mouth every six hours as needed for painacetaminophen 650 mg, Oral, q6hr, PRN as needed for pain, Refills(s) 0 Start Date: 06/11/21 Status: OrderedStart: 03-23-2020 End: 80-92-2106uamk 1 tablet by mouth every six hours as needed for pain acetaminophen (TYLENOL EXTRA STRENGTH) 500 mg tablet Indications: Post-op pain Take 1 tablet (500 mg total) by mouth every 6 (six) hours as needed for pain. 30 tablet 03/23/2020 10/18/2024 DiscontinuedStart: 12-15-2015 End: 29-09-2374gmmn 2 tablets by mouth every four hours as needed for pain acetaminophen (TYLENOL) 325 MG tablet Take 2 tablets by mouth every 4 hours as needed for Pain 120 tablet 3 12/15/2015 04/25/2023 Discontinued (DUPLICATE) albuterol 0.83 mg/ml inhalation solution (20 sources)beta2-Adrenergic AgonistStart: 13-72-9217nyft 2.5 mg by inhalation every six hours as needed for wheezing and dyspneaStart: 82-54-6866uqos 2.5 mg by inhalation every six hours as needed for dyspnea and wheezing2.5 mg, nebulization, Every 6 hours PRN, shortness of breath, wheezing, Starting on Sun10/17/24 at 1317, Implement INPATIENT/ED Bronchodilator Clinical Practice Guidelines? YesStart: 03-41-8307ubyohedyz 90 mcg/inh inhalation powder 2 inh, Inhalation, q4hr Start Date: 07/21/24 Status: Ordered Repeat number: 1Start: 36-99-6654Vnhdv: .5 mg, Nebulization, 3 TIMES DAILY RESP, First dose on Vilma 06/19/24 at 1400, Until Discontinued, Initiate RT Bronchodilator Protocol: Yes - Inpatient ProtocolStart: 06-16-2024 End: 24-05-3171ookq 2 puff(s) by inhalation three times daily2 puff, Inhalation, 3 TIMES DAILY RESP, First dose on Sun06/16/24 at 2000, Until Discontinued, Initi ate RT Bronchodilator Protocol: Yes - Inpatient ProtocolStart: 21-38-8960Jqeib: 04-09-2023 End: 40-38-9394lqsc 2.5 mg by inhalation every six hours as needed for wheezing and dyspnea2.5 mg, nebulization, Every 6 hours PRN, wheezing, shortness of breath, Starting on Sun04/09/23 at 0820, Implement INPATIENT/ED Bronchodilator Clinical Practice Guidelines? Yes, Document: \[email or web address]\[email or web address]\[email or web address]_Reference\Orders\Respiratory Care Guidelines\CPG Bronchodilator 2020.pdfStart: 47-92-4298qnil 2 puff(s) by inhalation every four hours as needed for wheezingalbuterol (PROVENTIL HFA;VENTOLIN HFA) 90 mcg/actuation inhaler Indications: Pneumonia of right lower lobe due to infectious organism Inhale 2 puffs every 4 (four) hours as needed for wheezing. 18 g 02/15/2023 ActiveStart: 35-30-5432hhoa 2 puff(s) by inhalation every four hours as needed2 puff, Inhalation, EVERY 4 HOURS PRN, Starting on Sun06/16/24 at 1548, Until Discontinued, Wheezing, Initiate RT Bronchodilator Protocol: Yes - Inpatient ProtocolStart: 97-96-9350fzvhbbws hydroxide 40 mg/ml / magnesium hydroxide 40 mg/ml / simethicone 4 mg/ml oral suspension (1 source)Start: 65-56-0945uosd 30 mL by mouth four times daily at bedtime as etxbxn21 mL, oral, 4 times daily after meals and at bedtime as needed, dyspepsia, Starting on 01/04/25at 2323, Look-alike/sound-alike medication - verify indication for use. Shake well., Indications: dyspepsiabenzonatate 100 mg oral capsule (20 sources)Non-narcotic AntitussiveStart: 90-31-4962Qgubc: 07-21-2024 End: 99-65-0062ozpa 1 capsule by mouth three times dailybenzonatate 100 mg Cap 100 mg = 1 cap(s), Oral, TID Start Date: 07/21/24 Status: Ordered Repeat number: 1Start: 89-60-9749Fychyrj Carb-Cholecalciferol (OYSTER CALCIUM/D3 PO) (20 sources)Calcium Carb-Cholecalciferol (OYSTER CALCIUM/D3 PO) Take by mouth Activecalcium carbonate 500 mg chewable tablet (20 sources)Start: 57-50-9052869 mg, oral, 2 times daily, First dose on Sun01/06/25 at 2100, Ordered as elemental calcium. 200 mg elemental calcium = 500 mg calcium carbonateStart: 28-57-7742FCJ-GEST ANTACID 200 mg calcium (500 mg) chewable tablet Chew 1 tablet (200 mg total) and swallow in the morning and 1 tablet (200 mg total) before bedtime. 10/02/2024 ActiveStart: 11-89-0287mvgz 1 tablet by mouth twice loenp045 mg (1 tablet), Oral, 2 TIMES DAILY, First dose on Sun07/14/24 at 1400, Until DiscontinuedStart: 64-44-8039kuzqukp carbonate 500 mg Chew Tab 500 mg = 1 tab(s), Chewed, BID, # 15 tab(s), Refills(s) 0 Start Date: 06/24/22 Status: OrderedStart: 30-77-5192mxww 1 tablet by mouth twice daily at mealtimecalcium carbonate (OS-TAYE) 600 mg (1,500 mg) tablet Indications: Seizures (CMS-HCC) Take 1 tablet (600 mg total) by mouth 2 (two) times a day with meals. chewable 90 tablet 1 11/12/2018 Activecalcium carbonate (FLAVOR CHEWS ANTACID ORAL) Take 500 mg by mouth. Activetake 1 tablet by mouth twice dailycalcium carbonate (OYSTER SHELL CALCIUM 500 MG) 1250 (500 Ca) MG tablet Take 1 tablet by mouth 2 times daily 0 Activecarbamide peroxide 65 mg/ml otic solution (20 sources)Start: 47-53-7087Pnxhq: 26-78-9624ffrtqlhxh peroxide (DEBROX) 6.5 % otic solution Place 4 drops into both ears every 30 days Apply cotton swabs to ears, after instilling drops. Then irrigate with room temperature water the next morning Next dose 08/22/2024 06/23/2023 ActiveStart: 02-00-5878mgnnvidhd peroxide (DEBROX) 6.5 % otic solution Place 4 drops into both ears every 30 days Apply cotton swabs to ears, after instilling drops. Then irrigate with room temperature water the next morning 0 06/23/2023 ActiveStart: 90-60-2663dgxcmqxuw peroxide (DEBROX) 6.5 % otic solution Place 4 drops into both ears every 30 days Apply cotton swabs to ears, after instilling drops. Then irrigate with room temperature water the next morning 0 06/23/2023 SuspendedStart: 50-27-7130Vfjbqi 6.5% otic solution 5 drop(s), Refill(s) 0, at bedtime once a month Start Date: 06/11/21 Status: OrderedStart: 11-12-2018 End: 79-37-1579bouayitzy peroxide (DEBROX) 6.5 % otic solution Apply 4 ggt to both ear nightly once a month . Cotton ball then in am rinse with body temperature water using syringe in kit 15 mL 11/12/2018 10/18/2024 Discontinued Start: 55-34-0783chyzyweba peroxide (EAR DROPS) 6.5 % otic solution 4 Drops once every month. 11/12/2018 ActiveStart: 83-66-4120ybkllkkqf peroxide (Debrox) 6.5 % otic solution 4 drops every 30 (thirty) days Activecetirizine hydrochloride 10 mg oral tablet (2 sources)Histamine-1 Receptor AntagonistStart: 02-07-2024 End: 03-53-4913ober 1 tablet by mouth once dailycetirizine (ZYRTEC) 10 MG tablet Take 1 tablet by mouth daily for 10 days 02/08/2024 02/18/2024 Active cholecalciferol 0.025 mg oral tablet (20 sources)Vitamin DStart: 51,000 Units, Oral, DAILY, First dose on Sun07/14/24 at 1400, Until Discontinued, Labeling may look different. 25 mys=7591 Units. Please double check dosages.Start: 54-48-3454cgxg 1 capsule by mouth once dailycholecalciferol 1000 intl units oral capsule 1,000 International_Unit = 1 cap(s), Oral, Daily, Refills(s) 0, Prophylaxis Start Date: 12/16/18 Status: OrderedStart: 09-04-2018 End: 38-88-9302jdec 1 tablet by mouth once dailycholecalciferol, vitamin D3, (cholecalciferol) 1,000 units tablet Indications: Vitamin D deficiencyTake 1 tablet (1,000 Units total) by mouth daily. 90 tablet 1 09/04/2018 01/04/2025 Discontinued (Therapy completed)take 1 capsule by mouth in the morning cholecalciferol (Vitamin D-3) 25 MCG (1000 UT) capsule Take 1,000 Units by mouth in the morning. Activechromium picolinate 0.1 mg / inulin 2000 mg chewable tablet (7 sources)Start: 51-64-6464hoddpe-chromium picolinate 2-100 gram-mcg tablet,chewable Indications: Seizures (CMS-HCC) Chew 2 tablets and swallow daily. 180 tablet 1 11/12/2018 ActiveStart: 94-33-3850Uwszd: 54-35-6591bqnyis- chromium picolinate (FIBER SELECT GUMMIES) 2-100 gram-mcg chew Patient takes 5mg gummies, once gummy twice daily 180 tablet 3 11/10/2014 Kgykoi265 ml ciprofloxacin 2 mg/ml injection (6 sources)Quinolone AntimicrobialStart: 80-38-5193cmrr 400 mg intravenously every twelve mg, intravenous, at 200 mL/hr, Administer over 60 Minutes, Every 12 hours, First dose on Sun01/06/25 at 1230, Protect from light; May alter blood glucose or insulin requirements., Specific Use Criteria: UTI (documented susceptible organism), Fluoroquinolones contain FDA Black Box warnings. Due to safety concerns, avoid use in acute bacterial sinusitis, acute bacterial exacerbation of chronic bronchitis, or acute uncomplicated cystitis if possible. Use alternative treatment if available. I acknowledge the Black Box warnings of fluoroquinolones.Start: 07-16-2024 End: 51-65-2155xrih 1 tablet by mouth every twelve hoursciprofloxacin 500 mg Tab 500 mg = 1 tab(s), Oral, q12hr Start Date: 07/21/24 Status: Ordered Repeat n umber: 1Start: 07-16-2024 End: 74-15-5819831 mg, Oral, 2 times daily, 14 doses, First dose on Sun07/16/24 at 1000, Last dose on Sun07/22/24 at 1900, Antimicrobial Indications: Urinary Tract Infection, UTI duration of therapy: 7 days, Do nottake with dairy products or calcium-fortified juices. Tube feeding (TF) interaction, obtain physician order to manage. Recommend holding TF for 1 hr before and 1 hr after dose. Due to decreased absorption do not give by J tube.Start: 07-14-2024 End: 87-00-4123634 mg, IntraVENous, EVERY 12 HOURS, First dose on Sun07/14/24 at 1400, Until Discontinued, Antimicrobial Indications: Intra-Abdominal Infection Debrox 6.5% otic solution (5 sources)Start: 10-94-3124Gsqgnk 6.5% otic solution 5 drop(s), Refill(s) 0, at bedtime once a month Start Date: 06/11/21 Status: Djbsvga55 hr dextromethorphan hydrobromide 30 mg / guaiFENesin 600 mg extended release oral tablet (3 sources)Uncompetitive K-jgmmpb-H-aspartate Receptor Antagonist, Sigma-1 AgonistStart: 02-07-2024 End: 64-00-0595qifv 30-600 mg by mouth oncedextromethorphan-guaiFENesin (MUCINEX DM) 30-600 MG per extended release tablet Take 1 tablet by mouth 2 times daily for 10 days 02/07/2024 02/17/2024 ActiveStart: 02-06-2024 End: 53-08-1998lotd 1 tablet by mouth twice daily1 tablet, Oral, 2 TIMES DAILY, First dose (after last modification) on Vilma 02/07/24 at 0900, Until Discontinued, Do not crush or break.diatrizoate meglumine-sodium (GASTROGRAFIN) 66-10 % solution 240 mL (1 source)Start: 72-61-6744qdnhirsrysr meglumine-sodium (GASTROGRAFIN) 66-10 % solution 240 mLdiatrizoate meglumine-sodium (GASTROGRAFIN) 66-10 % solution 75 mL (1 source)Start: 72-32-1656ywodnpppxge meglumine-sodium (GASTROGRAFIN) 66-10 % solution 75 mLdiatrizoate meglumine-sodium (GASTROGRAFIN) 66-10 % solution 90 mL (1 source)Start: 92-68-8549dpqhpyegnru meglumine-sodium (GASTROGRAFIN) 66-10 % solution 90 mLdiazePAM 100 mg/ml nasal spray (20 sources)BenzodiazepineStart: 70-57-4455vjhx 1 spray(s) nasal route once dailydiazePAM, 20 MG Dose, (Valtoco 20 MG Dose) 2 x 10 MG/0.1ML liquid therapy pack Indications: Seizure(HCC) 1 spray in each nostril once a day for intractable seizure. 6 each 2 02/06/2024 ActiveStart: 83-36-888795 mg, Rectal, PRN, Starting on Vilma 06/21/23 at 0006, Until Discontinued, seizure activity>15 minutes This medication is non-formulary. Please see if the patient can bring their home supply. Pleasesend down to pharmacy for identification.Start: 02-14-2023 End: 05-65-7460bytykOBV (DIASTAT) 10 MG GEL Indications: Seizure disorder (HCC) Place 20 mg rectally as needed (Insert 21 g rectally as needed for seizure activity> 50 minutes) for up to 10 days. 15 each 1 02/14/2023 04/25/2023 Discontinued (DUPLICATE)Start: 06-21-2022 End: 76-77-6771Xbenj: 63-55-2569dienvbid 12.5-20mg kit, Rectal, Once, PRN for seizure activity >15 minutes, Refills(s) 0 Start Date: 06/11/21 Status: Ordered Repeat number: 1Start: 86-21-8481kwcvfacw 12.5-20mg kit, Rectal, Once, PRN for seizure activity >15 minutes, Refills(s) 0 Start Date: 06/11/21 Status: Ordered docusate sodium 50 mg / sennosides, snf 8.6 mg oral tablet (20 sources)Start: 21-29-9222rzjh 2 tablets by mouth in the morningSENEXON-S 8.6-50 mg Take 2 tablets by mouth in the morning. 09/16/2024 ActiveStart: 01-26-8525vvvb 2 tablets by mouth once daily at dinner2 tablet, Oral, DAILY WITH DINNER, First dose on Sun07/14/24 at 1730, Until DiscontinuedStart: 06-19-2024 Start: 04-92-1823Ampfggz-S 8.6-50 MG tablet 06/04/2024 ActiveStart: 04-22-2024 take 2 tablets by mouth once daily2 tablet, Oral, DAILY, First dose on Sun04/22/24 at 1745, Until DiscontinuedStart: 05-08-2023 End: 08-35-1534jxiy 2 tablets by mouth once dailysennosides-docusate sodium (SENOKOT-S) 8.6-50 MG tablet Take 2 tablets by mouth daily 60 tablet 3 09/05/2023 ActiveEar Wax 6.5% otic solution (4 sources)Start: 24-78-4144Tyf Wax 6.5% otic solution 4 drop(s), Otic, Bedtime, 15 mL, Refill(s) 0, INSTILL 4 DROPS INTO BILATERAL EARS AT BEDTIME ONCE A MONTH THEN APPLY COTTON SWABS TO EARS, THEN IRRIGATE WITH ROOM TEMP H20 THEN NEXT MORNING. Start Date: 06/24/22 Status: Ordered0.4 ml enoxaparin sodium 100 mg/ml prefilled syringe (11 sources)Low Molecular Weight HeparinStart: 65-19-0591mtjyom 40 mg by subcutaneous injection once daily40 mg, subcutaneous, Daily, First dose on Sun10/15/24 at 1530, Look-alike/sound-alike medication - verify indication for use. Start: 50-61-1019odjfvp 40 mg by subcutaneous injection once daily40 mg, SubCUTAneous, DAILY, First dose on Sun08/19/24 at 0900, Until Discontinued, Indication of Use: Prophylaxis-DVT/PEStart: 96-05-4830awhsfp 40 mg by subcutaneous injection once daily40 mg, SubCUTAneous, DAILY, First dose on Sun06/16/24 at 1615, Until Discontinued, Indication of Use: Prophylaxis-DVT/PEStart: 06-05-2093vhsbap 40 mg by subcutaneous injection once daily40 mg, SubCUTAneous, DAILY, First dose on Sun04/19/24 at 1915, Until Discontinued, Indication of Use: Prophylaxis-DVT/PEStart: 11-25-6023yqlqws 40 mg by subcutaneous injection once daily40 mg, SubCUTAneous, DAILY, First dose on 02/03/24 at 0900, Until Discontinued, Indication of Use: Prophylaxis-DVT/PEStart: 78-03-9061gfnpxkoetv (LOVENOX) injection 40 mgStart: 97-82-8471reiiqg 40 mg by subcutaneous injection once daily40 mg, SubCUTAneous, DAILY, First dose on Sun06/11/23 at 1500, Until Discontinued Indication of Use:Prophylaxis-DVT/PEStart: 21-56-7706auaoph 40 mg by subcutaneous injection once daily40 mg, SubCUTAneous, DAILY, First dose on Sun04/25/23 at 0900, Until Discontinued Indication of Use: Prophylaxis-DVT/PE Administer by deep subCUTAneous injection with pt lying down. Alternate injectio n sites on abdominal wall. Do not rub site after injection. Check with provider prior to any invasive procedure.Start: 97-36-3212wfhpnf 40 mg by subcutaneous injection once daily40 mg, SubCUTAneous, DAILY, First dose on 09/03/22 at 0900, Until Discontinued Indication of Use:Prophylaxis-DVT/PEStart: 06-21-2022 inject 40 mg by subcutaneous injection once daily40 mg, SubCUTAneous, DAILY, First dose on Sun06/21/22 at 1730, Until Discontinued Indication of Use: Prophylaxis-DVT/PEStart: 09-38-1133faasyohyuj (LOVENOX) injection 40 mg ergocalciferol, vitamin D2, (VITAMIN D2 ORAL) (2 sources)ergocalciferol, vitamin D2, (VITAMIN D2 ORAL) Take 1,000 Units by mouth. Activeerythromycin ethylsuccinate 40 mg/ml oral suspension (5 sources)Macrolide, Macrolide AntimicrobialStart: 09-07-2022 End: 65-88-4376xgkq 5 mL by mouth three times daily at dinnererythromycin (EES) 200 MG/5ML suspension Take 5 mLs by mouth 3 times daily for 10 days Give with Breakfast, Dinner, and Bedtime 150 mL 0 09/07/2022 09/17/2022 ActiveStart: 09-07-2022 End: 03-70-0491duod 5 mL by mouth four times daily at mealtimeerythromycin (EES) 200 MG/5ML suspension Take 5 mLs by mouth 4 times daily (with meals and nightly) for 10 days 200 mL 0 09/07/2022 09/07/2022 Discontinued (REORDER)Start: 09-03-2022 End: 37-73-0093dnrkmlcwqhmm (EES) 200 MG/5ML suspension 200 mgfamotidine (PEPCID) 20 MG/2ML 20 mg in sodium chloride (PF) 0.9 % 10 mL injection (2 sources)Start: 64-74-8323irju 10 mL intravenously twice daily20 mg, IntraVENous, 2 TIMES DAILY, First dose on Sun08/18/24 at 2230, Until Discontinued, IV Push over minimum of 2 minutes - Dilute with 10 mL NSStart: 06-16-2024 End: 99-71-9326tdsy 10 mL intravenously twice daily20 mg, IntraVENous, 2 TIMES DAILY, First dose on Sun06/16/24 at 2100, Until Discontinued, IV Push over minimum of 2 minutes - Dilute with 10 mL NSfinasteride 5 mg oral tablet (20 sources)5-alpha Reductase InhibitorStart: 67-00-9249tdyo 1 tablet by mouth once dailyfinasteride (PROSCAR) 5 mg tablet Indications: Benign prostatic hyperplasia with urinary frequency Take 1 tablet (5 mg total) by mouth daily. 90 tablet 1 04/03/2017 Activeglucagon (rdna) 1 mg injection (2 sources)Antihypoglycemic AgentStart: 30-94-4886Rkoww: 04-08-2023 End: mg, intramuscular, As needed, low blood sugar, blood glucose less than 70 mg/dL and unconscious or NPO without IV access., Starting on 04/08/23 at 0935, If conscious and not NPO, immediately follow with meal tray or high protein (7Grams) snack if tray not available. If NPO, initiate IV 5% Dextro se/Water at 100 mL/hr and contact prescriber for additional orders. If blood glucose is not greaterthan 70 mg/dL after initial treatment, repeat treatment.50 ml glucose 500 mg/ml prefilled syringe (5 sources)Start: 31-35-9079Nzjka: 94-76-4550Lrppa: 04-08-2023 End: g, oral, As needed, low blood sugar, blood glucose less than 70 mg/dL, Starting on 04/08/23 [id number], If patient conscious and taking PO. If blood glucose is not greater than 70 mg/dL after initial treatment, repeat treatment.Start: 04-08-2023 End: mL, intravenous, As needed, low blood sugar, blood glucose less than 70 mg/dL and unconscious orNPO with IV access, Starting on 04/08/23 at [...] mg/dL after initial treatment, repeat treatment. VESICANT (RED)Warning: HYPERTONIC solution. Start: 04-08-2023 End: 04-33-0643xofk 70 mg intravenously every sugd663 mL/hr, intravenous, Continuous PRN, blood glucose less than 70 mg/dL, Starting on 04/08/23 [id number], Use immediately following dextrose 50% or glucagon treatment for patients who are unconsciousor NPO. Contact prescriber for additional orders. If blood glucose is not greater than 70 mg/dL after initial treatment, repeat treatment. 500 ml glucose 50 mg/ml / potassium chloride 0.02 meq/ml / sodium chloride 4.5 mg/ml injection (3 sources)Start: 10-17-2024 End: 61-69-7717mkdm 50 mL intravenously every hour50 mL/hr, intravenous, Continuous, Starting on 10/18/24 at 0830Start: 02-05-2024 End: 13-39-4725YbjzbXIJtzi, at 100 mL/hr, CONTINUOUS, [place] Tu3/24 [place] [address] ml heparin sodium, porcine 5000 unt/ml injection (2 sources)Unfractionated Heparin, Anti-coagulantStart: 88-41-3460hlzwai 5000 [IU] by subcutaneous injection every eight hours5,000 Units, subcutaneous, Every 8 hours scheduled, First dose on Sun01/05/25 at 0800, Look-alike/sound-alike medication - verify indication for use. Observe for bleeding.Start: 04-08-2023 End: 45,000 Units, subcutaneous, Every 8 hours scheduled, First dose on Sun04/08/23 at 1100, Notify prescriber if INR greater than 1.9, hemoglobin less than 10 mg/dL, aPTT greater than 40 seconds, and/or platelet count less than 100,000/mm Look-alike/sound-alike medication - verify indication for use. Obse rve for bleeding.hydrocortisone 25 mg/ml topical cream (20 sources)CorticosteroidStart: 15-12-6438cqhsbmhzxlycop Top 2.5% Crm daily, Topical, BID, Refill(s) 0 Start Date: 11/08/22 Status: Ordered Repeat number: 1 Start: 02-18-2020 End: 10-45-4444dstmroozdxhncx (HYTONE) 2.5 % cream Apply 2.5 application topically 2 (two) times a day as needed. 02/18/2020 Activehydrocortisone 2.5 % cream Apply 1 application topically every 12 (twelve) hours ActivehydrOXYzine hydrochloride 25 mg oral tablet (20 sources)AntihistamineStart: 56-39-1522aakp 1 tablet by mouth every twelve hours as neededStart: 01-52-4270mbfs 1 tablet by mouth four times daily hydrOXYzine hydrochloride 25 mg Tab 25 mg = 1 tab(s), Oral, QID, Refills(s) 0, Anxiety Start Date: 12/16/18 Status: OrderedStart: 49-80-1681zkqm 1 tablet by mouth every twelve hours as neededhydrOXYzine hydrochloride 25 mg Tab 25 mg = 1 tab(s), Oral, q12hr, PRN as needed for itching, Refills(s) 0 Start Date: 06/24/22 Status: Ordered Repeat number: 1Start: 60-42-4378jece 25 mg by mouth twice daily as mhdcyq41 mg, Oral, 2 TIMES DAILY PRN, Starting on 04/28/23 at 1159, Until Discontinued, Itchingtake 1 tablet by mouth every twelve hours as needed hydrOXYzine (ATARAX) 25 mg tablet Take 1 tablet (25 mg total) by mouth every 12 (twelve) hours as needed for itching. Activetake 1 capsule by mouth every eight hours as neededhydrOXYzine pamoate (VISTARIL) 25 mg capsule Take 25 mg by mouth three times a day as needed. ActiveIbuprofen (20 sources)Nonsteroidal Anti-inflammatory DrugStart: 04-34-4117hwsjfugsb PRN as needed for pain, Refills(s) 0, Pain Start Date: 12/16/18 Status: OrderedStart: 66-15-6083atla 2 capsules by mouth every four hours for painIbuprofen 200 mg cap Take 2 capsules by mouth every 4 hours (for headaches, muscle pain or fever ove r 100 degrees) 180 capsule 3 11/10/2014 Activetake 1 tablet by mouth every six hours as needed for painibuprofen 400 MG tablet Take 400 mg by mouth every 6 (six) hours if needed for moderate pain Active1 ml ketorolac tromethamine 15 mg/ml cartridge (1 source)Nonsteroidal Anti-inflammatory Drug, Cyclooxygenase InhibitorStart: 05-09-2022 End: 52-18-3170hhqyciqvz (TORADOL) injection 15 mglacosamide 50 mg oral tablet (20 sources)Anti-epileptic AgentStart: 49-62-2537zmjy 1 tablet by mouth twice utekn734 mg, oral, 2 times daily, First dose on Sun01/06/25 at 2100, Swallow tablets whole; do not divide.Start: 01-05-2025 End: 00-05-0857kzux 150 mg by mouth twice mg, oral, 2 times daily, First dose on Sun01/05/25 at 0900Start: 89-26-0100haqc 1 tablet by mouth twice zdsye573 mg, oral, 2 times daily, First dose on Sun10/17/24 at 2100, Swallow tablets whole; do not divide.Start: 68-03-0272564 mg, IntraVENous, 2 TIMES DAILY, First dose on Sun08/19/24 at 0945, Until Discontinued, Doses upto 400 mg may be administered undiluted at less than or equal to 80 mg/minute (eg, 400 mg over 5 minutes)Start: 48-25-5554lrst 150 mg by mouth twice mg, Oral, 2 TIMES DAILY, First dose on Sun07/14/24 at 1400, Until DiscontinuedStart: 73-04-7426wrfz 150 mg by mouth twice efwvg580 mg, Oral, 2 TIMES DAILY, First dose on Sun06/19/24 at 0930, Until DiscontinuedStart: 06-17-2024 End: 84-91-1938415 mg, IntraVENous, 2 TIMES DAILY, First dose on Sun06/17/24 at 1100, Until Discontinued, Doses upto 400 mg may be administered undiluted at less than or equal to 80 mg/minute (eg, 400 mg over 5 minutes)Start: 04-22-2024 take 150 mg by mouth twice eodua329 mg, Oral, 2 TIMES DAILY, First dose on Sun04/22/24 at 2100, Until DiscontinuedStart: 03-28-2024 End: 49-30-8708ndnv 1 tablet by mouth in the morninglacosamide (Vimpat) 150 mg tablet tablet Indications: Seizure (HCC) Take 1 tablet (150 mg) by mouthin the morning and 1 tablet (150 mg) before bedtime. 60 tablet 1 07/01/2024 Active Start: 74-08-3809vbwb 150 mg by mouth twice dvwyn594 mg, Oral, 2 TIMES DAILY, First dose (after last reorder) on Sun02/06/24 at 1045, Until DiscontinuedStart: 02-04-2024 End: 56-12-1474796 mg, IntraVENous, 2 TIMES DAILY, First dose (after last modification) on Sun02/04/24 at 1145, Until Discontinued, Doses up to 400 mg may be administered undiluted at less than or equal to 80 mg/minute (eg, 400 mg over 5 minutes)Start: 06-12-2023 End: 58-22-9507yqbcdhirtr (VIMPAT) injection 150 mgStart: 88-61-5600eliw 150 mg by mouth twice ptuhs282 mg, Oral, 2 TIMES DAILY, First dose on Sun06/11/23 at 2315, Until DiscontinuedStart: 04-18-2023 End: 90-58-6395hizs 1 tablet by mouth every twelve iumev470 mg, oral, Every 12 hours, First dose on Sun04/18/23 at 1300, Swallow tablets whole; do not divide. Start: 09-04-2022 End: 25-11-7613rxtrhylspi (VIMPAT) injection 150 mgStart: 64-92-4342knmd 1 tablet by mouth twice wwpir221 mg, Oral, 2 TIMES DAILY, First dose on Sun09/02/22 at 2330, Until Discontinued Swallow tablets whole; do not crush, split, or chew.Start: 87-27-7219uivd 1 tablet by mouth twice yjmhw761 mg, Oral, 2 TIMES DAILY, First dose on Sun05/12/22 at 1100, Until Discontinued Swallow tablets w hole; do not crush, split, or chew.Start: 08-14-2015 End: 18-89-8885lywp 1 tablet by mouth twice dailyVIMPAT 150 mg tablet Indications: Seizures (CMS-HCC) Take 1 tablet (150 mg total) by mouth 2 (two) t imes a day. 60 each 03/07/2018 Activetake 1 tablet by mouth once dailylacosamide (VIMPAT) 150 MG TABS tablet Take 150 mg by mouth daily 0 Activelactobacillus acidophilus [id number] unt oral capsule (1 source)Start: 78-86-6626nyeg 1 capsule by mouth twice daily at mealtime1 capsule, oral, 2 times daily with meals, First dose on Sun01/06/25 at 1700, Administer with wateror milk during a meal.lamoTRIgine (20 sources)Mood Stabilizer, Anti-epileptic AgentStart: 86-79-4495shhh 400 mg by mouth once iitug590 mg, oral, Daily, First dose on Sun01/07/25 at 0900, Look-alike/sound-alike medication - verify indication for use.Start: 01-06-2025 take 600 mg by mouth once ptfax398 mg, oral, Nightly, First dose on Sun01/06/25 at 2200, Look-alike/sound-alike medication - verify indication for use.Start: 39-01-6610kwhm 400 mg by mouth once eqqxu723 mg, oral, Daily, First dose on Sun10/18/24 at 0900, Look-alike/sound-alike medication - verify indication for use. Start: 69-20-1059pcnl 600 mg by mouth once uhwtc092 mg, oral, Nightly, First dose on Sun10/17/24 at 2200, Look-alike/sound-alike medication - verify indication for use.Start: 67-55-3077nwvt 600 mg by mouth once yfrtl428 mg, Oral, Nightly, First dose on Sun07/14/24 at 2100, Until DiscontinuedStart: 07-14-2024 take 400 mg by mouth once daily in the mg, Oral, EVERY MORNING, First dose on Sun07/14/24 at 1400, Until DiscontinuedStart: 21-75-4483Tqzbc: 32-04-0095gown 1 tablet by mouth once daily in the yqejksd479 mg, Oral, EVERY MORNING, First dose on Sun06/19/24 at 0930, Until Discontinued, Immediate releas e: [employer] labeling recommends that tablets should be swallowed whole, not chewed or crushed; however, some studies support crushing and mixing with applesauce (Note: Levetiracetam has a bitter taste)Start: 15-77-1765bfgq 400 mg by mouth once daily in the lujdisg015 mg, Oral, EVERY MORNING, First dose on Sun04/23/24 at 0900, Until DiscontinuedStart: 10-48-0784ukme 600 mg by mouth once kafqm534 mg, Oral, Nightly, First dose on Sun04/22/24 at 2100, Until DiscontinuedStart: 43-67-1755rdlb 600 mg by mouth once mg, Oral, Nightly, First dose on Sun02/06/24 at 1700, Until DiscontinuedStart: 02-06-2024 take 400 mg by mouth once daily in the kgulkdd615 mg, Oral, EVERY MORNING, First dose (after last modification) on Sun02/06/24 at 1100, Until DiscontinuedStart: 80-10-3296vobk 400 mg by mouth once daily in the mg, Oral, EVERY MORNING, First dose on Sun06/21/23 at 0900, Until DiscontinuedStart: 06-21-2023 take 600 mg by mouth once azumj573 mg, Oral, Nightly, First dose on Sun06/21/23 at 0030, Until DiscontinuedStart: 87-66-8525issc 400 mg by mouth once daily in the tjbgfjy955 mg, Oral, EVERY MORNING, First dose on Sun06/12/23 at 0900, Until DiscontinuedStart: 29-12-3970yfxb 600 mg by mouth once mhkoo202 mg, Oral, Nightly, First dose on Sun06/11/23 at 2315, Until DiscontinuedStart: 04-28-2023 take 600 mg by mouth once udhlj835 mg, Oral, Nightly, First dose on Sun04/28/23 at 2100, Until DiscontinuedStart: 63-08-6092rmte 400 mg by mouth once daily in the igudwfb391 mg, Oral, EVERY MORNING, First dose on Sun04/28/23 at 1230, Until DiscontinuedStart: 04-18-2023 End: 50-24-3107fvxj 400 mg by mouth once mg, oral, Daily, First dose on Sun04/18/23 at 0900, Look-alike/sound-alike medication - verify indication for use.Start: 04-17-2023 End: 95-23-5263kzxm 600 mg by mouth once upjkr277 mg, oral, Nightly, First dose on Sun04/17/23 at 2200, Look-alike/sound-alike medication - verify indication for use.Start: 47-61-1024hzcz 1 tablet by mouth in the morninglamoTRIgine (LaMICtal) 200 MG tablet Take 200 mg by mouth in the morning and 200 mg before bedtime.12/29/2022 ActiveStart: 85-57-7675zgqkIZTvgsw (LAMICTAL) tablet 400 mg Start: 75-58-5647rrxk 600 mg by mouth once ytukf548 mg, Oral, Nightly, First dose on Sun09/02/22 at 2330, Until DiscontinuedStart: 59-30-5404cnlj 3 tablets by mouth at bedtimelamotrigine 200 mg Tab 600 mg = 3 tab(s), Oral, Bedtime, Refills(s) 0, Seizure Start Date: 08/14/15 Status: Ordered Repeat number: 1Start: 10-16-2008 End: 43-35-3359tnsq 2 tablets by mouth once daily in the morninglamotrigine 200 mg Tab 400 mg = 2 tab(s), Oral, qAM, Refills(s) 0 Start Date: 06/24/22 Status: Ordered Repeat number: 1Start: 53-86-4893gfduakbrtoe 200 mg Tab See Instructions, pt takes 2 tablets in am and 3 tablets at hs., Refills(s) 0, Seizure Start Date: 08/14/15 Status: Orderedtake 1 tablet by mouth twice daily lamoTRIgine (LAMICTAL) 200 MG tablet Take 200 mg by mouth 2 times daily 0 Active latanoprost 0.05 mg/ml ophthalmic solution (20 sources)Prostaglandin AnalogStart: drop, both eyes, Nightly, First dose on Sun01/06/25 at 2200Start: drop, both eyes, Nightly, First dose on Sun10/17/24 at 2200Start: drop, Both Eyes, NIGHTLY, First dose on Sun07/14/24 at 2100, Until DiscontinuedStart: drop, Both Eyes, NIGHTLY, First dose on Sun04/19/24 at 2100, Until DiscontinuedStart: drop, Both Eyes, NIGHTLY, First dose on Sun02/06/24 at 2100, Until DiscontinuedStart: drop, Both Eyes, NIGHTLY, First dose on Sun06/11/23 at 2315, Until DiscontinuedStart: 09-02-2022 End: drop, both eyes, Nightly, First dose on Sun04/09/23 at 2200 Start: 66-77-4668zlit 1 drop(s) into the eye(s) at bedtimelatanoprost 0.005% ophthalmic emulsion 1 drop(s), Eye-Both, Bedtime, Refill(s) 0 Start Date: 06/24/22 Status: Ordered Repeat number: 1Start: 55-45-0819dcanctqjcpg ophthalmic 0.005 %, Eye-Both, qPM, Refill(s) 0 Start Date: 06/11/21 Status: Orderedtake 1 drop(s) into the eye(s) at bedtimelatanoprost (Xalatan) 0.005 % ophthalmic solution 1 drop at bedtime Activetake 1 drop(s) into the eye(s) once daily latanoprost (XALATAN) 0.005 % ophthalmic solution Place 1 drop into both eyes nightly ActivelevETIRAcetam 500 mg oral tablet (20 sources)Start: 71-54-3430fddf 1500 mg by mouth once daily1,500 mg, oral, Daily, First dose on Sun01/07/25 at 0900, Look-alike/sound-alike medication - verify indication for use.Start: 87-55-3521cauv 2000 mg by mouth at bedtime2,000 mg, oral, Bedtime, First dose on Sun01/06/25 at 2200, Look-alike/sound-alike medication - verify indication for use.Start: 25-83-0217fqar 1500 mg by mouth once daily1,500 mg, oral, Daily, First dose on Sun10/18/24 at 0900, Look-alike/sound-alike medication - verify indication for use.Start: 10-17-2024 take 2000 mg by mouth at bedtime2,000 mg, oral, Bedtime, First dose on Sun10/17/24 at 2200, Look-alike/sound-alike medication - verify indication for use. Start: 51-01-6424ockt 2 tablets by mouth once daily at bedtimelevETIRAcetam (KEPPRA) 1000 mg tablet Take 2 tablets (2,000 mg total) by mouth once daily at bedtime. 30 tablet 10/13/2024 ActiveStart: ,500 mg, IntraVENous, 2 TIMES DAILY, First dose on Sun08/19/24 at 0945, Until DiscontinuedStart: 11-84-5185yfwb 2000 mg by mouth once daily2,000 mg, Oral, NIGHTLY, First dose on Sun07/14/24 at 2100, Until Discontinued, Do not crush or chew.Start: 07-14-2024 take 1500 mg by mouth once daily1,500 mg, Oral, DAILY, First dose on Sun07/14/24 at 1400, Until Discontinued, Do not crush or chew.Start: 81-36-2026Dqwdr: 54-36-3217lwey 1500 mg by mouth once daily1,500 mg, Oral, DAILY, First dose on Sun06/19/24 at 0930, Until Discontinued, Do not crush or chew.Start: 06-18-2024 End: ,500 mg, IntraVENous, DAILY, First dose (after last modification) on Sun06/18/24 at 0900, Until DiscontinuedStart: 31-61-2489vmnb 1 tablet by mouth in the morninglevETIRAcetam (Keppra) 750 MG tablet Take 750 mg by mouth in the morning and 750 mg before bedtime.06/17/2024 ActiveStart: 06-16-2024 End: ,000 mg, IntraVENous, EVERY 12 HOURS, First dose on Sun06/16/24 at 1615, Until DiscontinuedStart: 17-62-9531cgbq 2000 mg by mouth once daily 2,000 mg, Oral, NIGHTLY, First dose on Sun04/22/24 at 2100, Until Discontinued, Do not crush or chew.Start: 50-41-3584byck 1500 mg by mouth once daily1,500 mg, Oral, DAILY, First dose on Sun04/22/24 at 1745, Until Discontinued, Do not crush or chew.Start: 64-97-3165wdyx 2000 mg by mouth once daily2,000 mg, Oral, NIGHTLY, First dose on Sun02/06/24 at 1700, Until Discontinued, Do not crush or chew.Start: 99-83-2874graw 1500 mg by mouth once daily1,500 mg, Oral, DAILY, First dose (after last modification) on Sun02/06/24 at 1100, Until Discontinued, Do not crush or chew.Start: 02-04-2024 End: ,500 mg, IntraVENous, EVERY 12 HOURS, First dose (after last modification) on Sun02/04/24 at 1200,Until DiscontinuedStart: 76-00-2006bjzj 1500 mg by mouth once daily1,500 mg, Oral, DAILY, First dose on Sun06/21/23 at 0900, Until Discontinued Do not crush or chew.Start: 40-33-8509kqqq 2000 mg by mouth once daily2,000 mg, Oral, NIGHTLY, First dose on Sun06/21/23 at 0030, Until Discontinued Do not crush or chew.Start: 06-12-2023 End: 02-91-4382pnqAEBDVdqfeb (KEPPRA) 1500 mg/100 mL IVPBStart: 08-43-3851swuv 1500 mg by mouth once daily1,500 mg, Oral, DAILY, First dose on Sun06/12/23 at 0900, Until Discontinued Do not crush or chew.Start: 20-91-2415neel 2000 mg by mouth once daily2,000 mg, Oral, NIGHTLY, First dose on Sun06/11/23 at 2315, Until Discontinued Do not crush or chew.Start: 70-37-4812eevJQPJThwmao (KEPPRA) injection 2,000 mgStart: 42-68-1358sonKCVFUfphux (KEPPRA) injection 1,500 mg Start: 04-19-2023 End: 45-27-4415pkpz 1500 mg by mouth once daily1,500 mg, oral, Daily, First dose on Sun04/19/23 at 0900, Look-alike/sound-alike medication - verify indication for use.Start: 04-18-2023 End: 28-48-6870zjlz 2000 mg by mouth once daily2,000 mg, oral, Nightly, First dose on Sun04/18/23 at 2200, Look-alike/sound-alike medication - verify indication for use.Start: 04-08-2023 End: ,500 mg, intravenous, at 400 mL/hr, Administer over 15 Minutes, Every morning before breakfast, First dose on Sun04/08/23 at 1200, Look-alike/sound-alike medication - verify indication for use.Start: 02-15-2023 take 2 tablets by mouth in the morninglevETIRAcetam (KEPPRA) 750 mg tablet Take 2 tablets (1,500 mg total) by mouth in the morning. 30 tablet 10/14/2024 Active Start: 09-03-2022 End: 07-49-8343nitMLHJXbitfr (KEPPRA) 1500 mg/100 mL IVPBStart: 40-21-7177wnzi 1500 mg by mouth once daily in the morning1,500 mg, Oral, EVERY MORNING, First dose on 09/03/22 at 0900, Until Discontinued Do not crush orchew.Start: 64-63-0324ljoa 2000 mg by mouth once daily in the evening2,000 mg, Oral, EVERY EVENING, First dose on 09/02/22 at 2330, Until Discontinued Do not crush or chew.Start: 14-09-0547tzdo 2 tablets by mouth once dailylevETIRAcetam 750 mg oral tablet, dispersible 1,500 mg = 2 tab(s), Oral, Daily, Refills(s) 0 Start D ate: 06/25/22 Status: Ordered Repeat number: 1Start: 19-15-5410fmpRXALPojwdb (KEPPRA) 1500 mg/100 mL IVPBStart: 10-02-5778nupm 1500 mg by mouth twice daily 1,500 mg, Oral, 2 TIMES DAILY, First dose on Sun05/12/22 at 1100, Until DiscontinuedStart: 04-03-2017 End: 82-20-1289czdw 2 tablets by mouth at bedtimelevetiracetam 1000 mg oral tablet 2,000 mg = 2 tab(s), Oral, Bedtime, Refills(s) 0 Start Date: 06/25/22 Status: Ordered Repeat number: 1Start: 31-97-2736smudwgrdrhlka 1500, Oral, BID, Refills(s) 0, Seizure Start Date: 08/14/15 Status: Orderedtake 1 tablet by mouth in the morninglevETIRAcetam (Keppra) 500 MG tablet Take 500 mg by mouth in the morning. ActivelevETIRAcetam (Keppra) 1000 MG tablet Take 1,500 mg by mouth in the morning. Activetake 1 tablet by mouth twice dailylevETIRAcetam (KEPPRA) 750 mg tablet Take 750 mg by mouth two times a day. Activetake 1 tablet by mouth twice dailyLEVETIRACETAM PO Indications: dissolvable tablet Take 1,500 mg by mouth 2 times daily Indications: dissolvable tablet 0 ActivelevoFLOXacin 500 mg oral tablet (18 sources)Quinolone AntimicrobialStart: 10-19-2024 End: 40-03-8082xgac 1 tablet by mouth in the morninglevoFLOXacin (LEVAQUIN) 500 mg tablet Take 1 tablet (500 mg total) by mouth in the morning for 5 days. 5 tablet 10/19/2024 10/24/2024 ActiveStart: 52-99-2912234 mg, intravenous, at 100 mL/hr, Administer over 90 Minutes, Every 24 hours, First dose on Sun10/15/24 at 1600, Look-alike/sound-alike medication - verify indication for use. May alter blood glucose or insulin requirements., Fluoroquinolones contain FDA Black Box warnings. Due to safety concerns,avoid use in acute bacterial sinusitis, acute bacterial exacerbation of chronic bronchitis, or acute uncomplicated cystitis if possible. Use alternative treatment if available. I acknowledge the Black Box warnings of fluoroquinolones., Indications: E. coli pyelonephritisStart: 10-14-2024 End: 16-26-4090mxjz 500 mg intravenously every twenty-four mg, intravenous, at 100 mL/hr, Administer over 60 Minutes, Every 24 hours, First dose on Sun10/14/24 at 1600, Avoid administration through an intravenous line with a solution containing multivalent cations (eg, magnesium, calcium). Look-alike/sound-alike medication - verify indication for use. May alter blood glucose or insulin requirements., Specific Use Criteria: Intra-abdominal, Fluoroquinolones contain FDA Black Box warnings. Due to safety concerns, avoid use in acute bacterial sinusitis, acute bacterial exacerbation of chronic bronchitis, or acute uncomplicated cystitis if possible. Use alternative treatment if available. I acknowledge the Black Box warnings of fluoroquinolones. End: 96-91-2856kytx 2 tablets by mouth once dailylevofloxacin (LEVAQUIN) 250 MG tablet Take 500 mg by mouth daily 0 05/12/2022 Discontinued (Therapycompleted) linaclotide 0.145 mg oral capsule (20 sources)Guanylate Cyclase-C AgonistStart: 59-11-4616mrfw 1 capsule by mouth once daily before breakfastLINZESS 145 mcg capsule Take 1 capsule (145 mcg total) by mouth every morning before breakfast. 10/02/2024 ActiveStart: 44-03-4182Vzimt: 38-55-2374Cnpsu: 03-92-9176gzqx 1 capsule by mouth once daily Linzess 145 mcg oral capsule 145 mcg = 1 cap(s), Oral, Daily, Refills(s) 0 Start Date: 07/31/23 Status: Ordered Repeat number: 1Start: 17-64-6272qgja 1 capsule by mouth once daily before breakfastlinaclotide (LINZESS) 145 MCG capsule Take 1 capsule by mouth every morning (before breakfast) 30 capsule 04/30/2023 Active loperamide hydrochloride 2 mg oral capsule (20 sources)Opioid AgonistStart: 50-22-2957wsbz 1 mg by mouth every four hours loperamide 2 mg Cap mg cap(s), Oral, q4hr, Refills(s) 0 Start Date: 02/07/21 Status: OrderedStart: 34-31-4770dsag 1 mg by mouth four times daily as needed loperamide 1 mg, Oral, QID, PRN as needed for loose stool, Refills(s) 0, Loose stool Start Date: 08/14/15 Status: OrderedStart: 79-53-6698axmu 1 tablet by mouth twice daily as needed for diarrhealoperamide (IMODIUM A-D) 2 mg tablet Indications: Diarrhea, unspecified type Take 1 tablet (2 mg total) by mouth 2 (two) times a day as needed for diarrhea. 30 tablet 1 04/03/2017 Active End: 23-91-5670obrn 1 capsule by mouth twice daily as needed for diarrhea loperamide (IMODIUM) 2 MG capsule Take 1 capsule by mouth 2 times daily as needed for Diarrhea 0 04/28/2023 Discontinued (Stop Taking at Discharge) End: 87-50-5759rjonutmzii (IMODIUM) 2 MG capsule Take 1 capsule by mouth 4 times daily as needed for Diarrhea (2 caps by mouth with 1st loose stool, then 1 cap by mouth PRN for additional loose stools. (Max 16mg/24hours)) 0 09/03/2022 Discontinued (LIST CLEANUP)1 ml LORazepam 2 mg/ml injection (20 sources)BenzodiazepineStart: 61-87-4186tuiv 2 mg intravenously every four hours as needed2 mg, intravenous, Every 4 hours PRN, seizures, Starting on Sun01/05/25 at 0757, Look-alike/sound-alike medication - verify indication for use;IV use requires increased monitoring of HR,BP,Respirations and Pulse Oximetry;For IV-dilute with equal volume PF sod chlorideStart: 57-48-7806ztnx 1 mg intravenously every six hours as needed1 mg, intravenous, Every 6 hours PRN, seizures, Starting on Sun10/15/24 at 1210, Look-alike/sound-alike medication - verify indication for use;IV use requires increased monitoring of HR,BP,Respirations and Pulse Oximetry;For IV-dilute with equal volume PF sod chlorideStart: 79-33-7579Pojrk: 04-26-2023 End: 77-74-2483WFFnrzjiy (ATIVAN) injection 2 mgStart: 71-27-9649AAKiimwdg (ATIVAN) injection 4 mgStart: 04-26-2023 End: 86-18-0930QGVfgdbpd (ATIVAN) 2 MG/ML injectionStart: 04-02-2017 End: 50-11-2147kssd 1 tablet by mouth every eight hours as neededLORazepam 0.5 mg Tab 0.5 mg = 1 tab(s), Oral, q8hr, PRN Other (see comment), Refills(s) 0 Start Date: 06/24/22 Status: Ordered Repeat number: 1Start: 82-45-7748bqao 1 tablet by mouth three times daily as neededLORazepam 0.5 mg Tab See Instructions, PRN Seizure, 1 tab(s) Oral TID, # 24 tab(s), Refills(s) 0 Start Date: 02/05/21 Status: OrderedStart: 16-93-4670xqpy 1 tablet by mouth once daily as needed for anxietyLORazepam (ATIVAN) 0.5 mg tablet Indications: Anxiety Take 1 tablet (0.5 mg total) by mouth daily as needed for anxiety or seizures. 30 tablet 04/02/2017 Activemagnesium oxide 400 mg oral tablet (20 sources)Start: 04-19-2023 End: 95-14-3672bctl 400 mg by mouth once fpmni975 mg, oral, Daily, First dose on Sun01/07/25 at 132287 ml magnesium sulfate 40 mg/ml injection (12 sources)Start: ,000 mg, intravenous, at 25 mL/hr, Administer over 120 Minutes, As needed, Magnesium level 1.7 to 1.9 mg/dL, or Ionized Magnesium level 0.45 to 0.5 mmol/L., Starting on 01/04/25 at 2323, Recheck magnesium level 4 hours after infusion complete. With each magnesium result continue the replacementorders as needed.Start: ,000 mg, intravenous, at 25 mL/hr, Administer over 240 Minutes, As needed, Magnesium level 1.6 mg/dL or less, or Ionized Magnesium level 0.44 mmol/L or less, Starting on 01/04/25 at 2323, Recheckmagnesium level 4 hours after infusion complete. With each magnesium result continue the replacement orders as needed.Start: ,000 mg, intravenous, at 25 mL/hr, Administer over 120 Minutes, As needed, Magnesium level 1.7 to 1.9 mg/dL, or Ionized Magnesium level 0.45 to 0.5 mmol/L., Starting on Sun10/14/24 at 1552, Recheck magnesium level 4 hours after infusion complete. With each magnesium result continue the replacementorders as needed. Start: ,000 mg, intravenous, at 25 mL/hr, Administer over 240 Minutes, As needed, Magnesium level 1.6 mg/dL or less, or Ionized Magnesium level 0.44 mmol/L or less, Starting on Sun10/14/24 at 1552, Recheckmagnesium level 4 hours after infusion complete. With each magnesium result continue the replacement orders as needed.Start: 15-26-6858Xnean: 14-92-7955fpspqbipi sulfate 2000 mg in 50 mL IVPB premixStart: ,000 mg, IntraVENous, at 25 mL/hr, Administer over 2 Hours, PRN, Other, Magnesium Replacement, Starting on Sun06/11/23 at 1437 Mag Lab Replacement Action 1.4-1.6 mg/dL &amp ;nbsp; 2,000 mg Total Dose Given as 1,000 mg IVPB x 2 doses or 2,000 mg IVPB x 1 dose &amp ;nbsp; 1.0-1.3 mg/dL 4,000 mg Total Dose & amp;nbsp; Given as 1,000 mg IVPB x 4 doses or 2,000 mg IVPB x 2 doses Less than 1.0 mg/dL CALL PHYSICIAN and give &nbs p; 4,000 mg Total Dose &nbs p; Given as 1,000 mg IVPB x 4 doses or 2,000 mg IVPB x 2 doses Infuse at 1,000 mg/hr Repeat Mag level 1 hour after final administration Protoco l not for use in Patients with CrCl less than 30ml/minStart: 61-66-2123meum 1000 mg intravenously every hour as needed1,000 mg, IntraVENous, at 100 mL/hr, Administer over 1 Hours, PRN, Other, Per IV Magnesium Replacement Protocol, Starting on Sun04/24/23 at 2247 Mg Lab Replacement Action 1.4-1.6 1 gram IVPB x 2 doses&am p;nbsp; &am p;nbsp; (2 gram Total) 1.0- 1.3 1 gram IVPB x 4 doses & amp;nbsp; & amp;nbsp; (4 gram Total) <1.0 CALL PHYSICIAN and 1 gram IVPB x 4 doses (4 gram Total) Infuse at 1 gram/hr Repeat Mag level next AM Protocol not for use in Patients with CrCl<30ml/min Start: 04-08-2023 End: ,000 mg, intravenous, at 25 mL/hr, Administer over 120 Minutes, As needed, Magnesium level 1.7 to 1.9 mg/dL, or Ionized Magnesium level 0.45 to 0.5 mmol/L., Starting on 04/08/23 at 1151, Recheck magnesium level 4 hours after infusion complete. With each magnesium result continue the replacement o rders as needed.Start: 04-08-2023 End: ,000 mg, intravenous, at 25 mL/hr, Administer over 240 Minutes, As needed, Magnesium level 1.6 mg/dL or less, or Ionized Magnesium level 0.44 mmol/L or less, Starting on 04/08/23 at 1151, Recheck magnesium level 4 hours after infusion complete. With each magnesium result continue the replacement orders as needed.Start: 09-03-2022 End: 93-41-0007bebseeepw sulfate 1000 mg in dextrose 5% 100 mL IVPBStart: ,000 mg, IntraVENous, at 25 mL/hr, Administer over 2 Hours, PRN, Other, Magnesium Replacement, Starting on 09/02/22 at 2314 Mag Lab Replacement Action 1.4-1.6 mg/dL 2,000 mg Total Dose Given as 1,000 mg IVPB x 2 doses or 2,000 mg IVPB x 1 dose &amp ;nbsp; 1.0-1.3 mg/dL 4,000 mg Total Dose & amp;nbsp; Given as 1,000 mg IVPB x 4 doses or 2,000 mg IVPB x 2 doses Less than 1.0 mg/dL CALL PHYSICIAN and give &nbs p; 4,000 mg Total Dose &nbs p; Given as 1,000 mg IVPB x 4 doses or 2,000 mg IVPB x 2 doses Infuse at 1,000 mg/hr Repeat Mag level next AM Protocol not for use in Patients with CrCl less than 30ml/minmeclizine hydrochloride 12.5 mg oral tablet (20 sources)AntiemeticStart: 82-23-2808lvut 25 mg by mouth once daily25 mg, oral, Daily, First dose on Sun01/06/25 at 1345, Look-alike/sound-alike medication - verify indication for use.Start: 93-15-9642fukd 25 mg by mouth once daily25 mg, Oral, DAILY, First dose on Vilma 06/21/23 at 0900, Until Discontinued Start: 66-03-5027udts 25 mg by mouth once daily25 mg, Oral, DAILY, First dose on 04/28/23 at 1230, Until DiscontinuedStart: 01-71-7406gboz 1 tablet by mouth every eight hours as needed for dizzinessmeclizine 25 mg Tab 25 mg = 1 tab(s), Oral, q8hr, PRN Dizziness, FOR DIZZINESS, Refills(s) 0 Start Date: 06/24/22 Status: Ordered Repeat number: 1Start: 21-24-5631msdw 1 tablet by mouth three times dailymeclizine 25 mg oral tablet, chewable 25 mg = 1 tab(s), Chewed, TID, Refills(s) 0, Dizziness Start Date: 12/16/18 Status: OrderedStart: 11-12-2018 take 1 tablet by mouth once dailymeclizine (ANTIVERT) 25 mg tablet Take 1 tablet (25 mg total) by mouth daily. 30 tablet 11/12/2018 Activemelatonin 3 mg oral tablet (20 sources)Start: 60-56-5346Gqnxc: 54-31-9999lxhy 1 tablet by mouth once daily at bedtime as neededmelatonin 3 mg Tab 3 mg = 1 tab(s), Oral, Once a day (at bedtime), PRN for insomnia Start Date: 06/25/22 Status: Ordered Repeat number: 1 take 1 capsule by mouth once daily as neededmelatonin 3 mg capsule Take 1 capsule by mouth nightly as needed (insomnia). Activetake 3 tablets by mouth once daily as needed for sleepmelatonin (CIRCADIN) tablet Take 3 tablets (3 mg total) by mouth nightly as needed for sleep. ActiveMELATONIN ORAL Take by mouth. Active2 ml metoclopramide 5 mg/ml injection (20 sources)Dopamine-2 Receptor AntagonistStart: 75-99-8433jejj 5 mg intravenously every six hours5 mg, intravenous, Every 6 hours, First dose (after last modification) on 01/05/25 at 0930, Administer over 2 minutes., Intravenous Specific Administration: IV PushStart: 01-04-2025 End: 36-37-396653 mg, intravenous, Every 8 hours, First dose on 01/04/25 at 1616, Administer over 2 minutes.Start: 06-27-2022 End: 62-26-3094oqax 1 tablet by mouth 30 minutes before bedtimeReglan 5 mg Tab 5 mg = 1 tab(s), Oral, QIDACHS, not to exceed 12 weeks duration. 30 minutes before meals and at bedtime. Will need to follow-up with PCP and/or GI for further prescription., X 14 day(s), # 56 tab(s), Refills(s) 0, Pharmacy: [id number], [id number].... Start Date: 06/27/22 Stop Date: 07/11/22 Status: Ordered metroNIDAZOLE 250 mg oral tablet (13 sources)Nitroimidazole AntimicrobialStart: 10-19-2024 End: 06-12-4566mvyv 1 tablet by mouth three times dailymetroNIDAZOLE (FLAGYL) 250 mg tablet Take 1 tablet (250 mg total) by mouth 3 (three) times a day for 5 days. 15 tablet 10/19/2024 10/24/2024 ActiveStart: 10-14-2024 End: 27-40-8113wmiw 500 mg intravenously every twelve mg, intravenous, at 100 mL/hr, Administer over 60 Minutes, Every 12 hours, First dose on Vilma 10/03 06/27 at 0000, Look-alike/sound-alike medication - verify indication for use., Indication: Intra-abdominalStart: 08-96-5291qqwj 1 tablet by mouth three times dailyMetroNIDAZOLE 500 mg Tab 500 mg = 1 tab(s), Oral, TID Start Date: 07/21/24 Status: Ordered Repeat number: 1Start: 07-16-2024 End: 72-40-3567ggwq 1 tablet by mouth every eight hoursmetroNIDAZOLE (FLAGYL) 500 MG tablet Take 1 tablet by mouth every 8 hours for 20 doses 20 tablet 07/23/2024 ActiveStart: 07-16-2024 End: 65-91-3485669 mg, Oral, EVERY 8 HOURS SCHEDULED (3 times per day), 21 doses, First dose on Sun07/16/24 at 0845, Last dose on Sun07/22/24 at 2200, Antimicrobial Indications: Intra-Abdominal InfectionStart: 07-14-2024 End: 22-25-0260079 mg, IntraVENous, EVERY 8 HOURS, First dose on Sun07/14/24 at 1830, Until Discontinued, Antimicrobial Indications: Intra-Abdominal Infection Start: 07-14-2024 End: 38-40-8183399 mg, IntraVENous, ONCE, 1 dose, On Sun07/14/24 at 1000, Antimicrobial Indications: Intra-Abdominal InfectionStart: 06-11-2023 End: 96-92-0648xabneIANFTUBX (FLAGYL) 500 mg in 0.9% NaCl 100 mL IVPB premix mineral oil 0.03 mg/mg / petrolatum 0.94 mg/mg ophthalmic ointment (6 sources)Start: 34-19-5836fqatx petrolatum-mineral oil (SYSTANE NIGHTTIME) 94- 3 % ointment Indications: Ocular pruritus Instill 1 application to eye nightly. To eye lid Area bilat not conjuctivia (for pt chronic itching of ey) 1 Tube 2 10/17/2017 ActiveStart: 86-13-1492Qjieo Petrolatum-Mineral Oil (SYSTANE NIGHTTIME) OINT Place into both eyes nightly Apply thin layerto bilateral eyelids at bedtime 0 Activenystatin 124126 unt/ml topical cream (3 sources)Polyene AntifungalStart: 99-26-8255lzzgvmun (MYCOSTATIN) cream Apply 1 Application topically as needed (Apply topically to affected area twice daily as needed). 11/04/2024 Activeolopatadine 2 mg/ml ophthalmic solution (20 sources)Histamine-1 Receptor InhibitorStart: 63-48-7712njsw 1 drop(s) into the eye(s) in the morningolopatadine (PATADAY) 0.2 % drops Instill 1 drop to eye in the morning. 07/21/2024 ActiveStart: 85-50-4962xpuovryupkv Opth 0.2% [place] 1 drop(s), OPTH, Daily Start Date: 07/21/24 Status: Ordered Repeat number:1Start: 57-04-1456xpng 1 drop(s) into the eye(s) once dailyolopatadine (Pataday) 0.2 % ophthalmic solution Indications: Allergic conjunctivitis of right eye Administer 1 drop into affected eye(s) Daily 2.5 mL 3 10/11/2023 Activetake 1 drop(s) into the eye(s) once dailyolopatadine (PATADAY) 0.2 % SOLN ophthalmic solution Place 1 drop into both eyes daily Affected ey Active2 ml ondansetron 2 mg/ml injection (20 sources)Serotonin-3 Receptor AntagonistStart: 32-59-0090zhoj 4 mg intravenously every four hours as needed for nausea and vomiting4 mg, intravenous, Every 4 hours PRN, nausea, vomiting, Starting on 01/04/25 at 2323, Intravenous administration preferred to be given over 2-5 minutes.Start: 03-64-6988jdpp 4 mg intravenously every six hours as needed for nausea and vomitingStart: 10-14-2024 End: mg, intravenous, Once, On 10/14/24 at 1125, For 1 dose, Intravenous administration preferred to be given over 2-5 minutes.Start: 02-00-2028xlcg 1 tablet by mouth three times daily as needed for nausea ondansetron (ZOFRAN-ODT) 4 MG disintegrating tablet Take 1 tablet by mouth 3 times daily as needed for Nausea or Vomiting 20 tablet 04/19/2024 ActiveStart: 04-19-2024 End: mg, IntraVENous, ONCE, 1 dose, On 04/19/24 at 1500Start: 02-02-2024 End: mg, IntraVENous, ONCE, 1 dose, On 02/02/24 at 2145Start: 85-62-4204mjid 4 mg by mouth every six hours as needed4 mg, IntraVENous, EVERY 6 HOURS PRN, Starting on 04/24/23 at 2247, Until Discontinued, Nausea, V omiting Administer if oral route cannot be used.Start: 09-02-2022 End: 76-65-7304fueqjljmhxz (ZOFRAN) injection 4 mgStart: 06-24-2022 End: 26-10-8961dvpt 1 tablet by mouth every six hours as needed for nausea ondansetron 4 mg Tab 4 mg = 1 tab(s), Oral, q6hr, PRN Nausea/Vomiting, Refills(s) 0 Start Date: 06/24/22 Status: Ordered Repeat number: 1Start: 06-21-2022 End: 54-09-0428hglcqgmwrrt (ZOFRAN) injection 4 mgStart: 05-08-2022 End: 24-30-3417spwpdhskpai (ZOFRAN) injection 4 mgStart: 75-27-6521uwbg 1 tablet by mouth every twelve hours as needed for nausea and vomiting and nausea and nauseaondansetron ODT (ZOFRAN-ODT) 4 mg disintegrating tablet Indications: Nausea Dissolve 1 tablet (4 mgtotal) on tongue every 12 (twelve) hours as needed for nausea or vomiting. 60 tablet 1 04/03/2017 ActiveStart: 04-03-2017 End: 84-68-2695rlua 4 mg by mouth every six hours as needed4 mg, Oral, EVERY 6 HOURS PRN, Starting on 04/28/23 at 1159, Until Discontinued, Nausea, Vomiting Start: 92-38-6980iend 1 tablet by mouth three times daily as needed for nausea ondansetron 4 mg Dis Tab 4 mg = 1 tab(s), Oral, TID, PRN Nausea/Vomiting, Refills(s) 0 Start Date: 10/18/16 Status: OrderedStart: 94-24-3157debk 1 tablet by mouth three times daily as needed for nauseaondansetron 4 mg Dis Tab 4 mg = 1 tab(s), Oral, TID, PRN Nausea/Vomiting, Refills(s) 0 Start Date: 10/18/16 Status: OrderedStart: 77-03-4918obgg 1 tablet by mouth every eight hours as neededondansetron orally disintegrating (ZOFRAN ODT) 4 mg disintegrating tablet Take 1 tablet by mouth every 8 hours as needed. 20 tablet 0 04/22/2014 Active ondansetron (ZOFRAN-ODT) disintegrating tablet 4 mg (10 sources)Start: 39-62-1148jckfoorjkry (ZOFRAN-ODT) disintegrating tablet 4 mg Start: 39-68-3573vsifaligmzz (ZOFRAN-ODT) disintegrating tablet 4 mgStart: 57-14-3040neqljzjqlcg (ZOFRAN-ODT) disintegrating tablet 4 mgStart: 04-19-2024 ondansetron (ZOFRAN-ODT) disintegrating tablet 4 mgStart: 88-82-9826exohzvyjjvp (ZOFRAN-ODT) disintegrating tablet 4 mgStart: 32-69-1499hcocbrdqrjq (ZOFRAN-ODT) disintegrating tablet 4 mgStart: 12-34-7823kgxsqctxepb (ZOFRAN-ODT) disintegrating tablet 4 mgStart: 16-85-6260gdivaujctle (ZOFRAN-ODT) disintegrating tablet 4 mgStart: 58-45-3488xrsulvoulac (ZOFRAN-ODT) disintegrating tablet 4 mgStart: 59-78-0864iyrzibkqjby (ZOFRAN-ODT) disintegrating tablet 4 mgOyster Taye (7 sources)Start: 56-38-2066Dmkubp Taye Oral, TID, Refills(s) 0, Prophylaxis Start Date: 12/16/18 Status: Orderedpantoprazole 40 mg injection (20 sources)Proton Pump InhibitorStart: 56-76-875595 mg, intravenous, Every 24 hours scheduled, First dose on Sun01/05/25 at 0900, Look-alike/sound-alike medication - verify indication for use., Indication: Other (JACQUELINE)Start: 67-45-581850 mg, oral, Daily, First dose on Sun10/18/24 at 0900, Look-alike/sound-alike medication - verify indication for use. If patient is receiving enteral feeding, consider alternative PPI or continue IV pantoprazole until the delayed-release tablet can be taken orally, Indication: Dispense As Written (JACQUELINE)Start: 11-41-4799kure 40 mg by mouth once daily before gcqbtsgyr57 mg, Oral, DAILY BEFORE BREAKFAST, First dose on Sun07/15/24 at 0700, Until Discontinued, Do not crush or break.Start: 89-11-5992Jdqzj: 04-20-2024 End: 83-93-622495 mg, IntraVENous, DAILY BEFORE BREAKFAST, First dose on Sun04/20/24 at 0700, Until Discontinued, Dilute with 10 mL of 0.9% NaCl.Start: 67-49-5528zbpk 1 tablet by mouth once dailyPantoprazole [address] Tab 40 mg, Oral, Daily, Refills(s) 0 Start Date: 11/08/22 Status: Ordered Repeat number: 1 polyethylene glycol 3350 94326 mg powder for oral solution (20 sources)Osmotic LaxativeStart: 88-65-0772Axaiy: 05-00-6831Fozmx: 06-16-2024 Start: 42-29-9735Bumtr: 76-12-5985getpmltchvsc glycol (GLYCOLAX) packet 17 g Start: g, Oral, DAILY PRN, Starting on 06/11/23 at 1437, Until Discontinued, Constipation First line therapy for constipationStart: 04-28-2023 17 g, Oral, DAILY, First dose on 04/28/23 at 1230, Until Discontinued Stir and dissolve one packet of powder (17 g) in any 4 to 8 ounces of beverage (cold, hot or room temperature) then drinkStart: 11-72-4329rmwh 17 g by mouth once dailyMiraLax 17 gm, Oral, Daily, Refill(s) 0 Start Date: 06/24/22 Status: Ordered Repeat number: 1Start: 64-20-8854aavi 17 g by mouth once dailyMiraLax 17 gm, Oral, Daily, Refill(s) 0 Start Date: 06/24/22 Status: OrderedStart: 11-29-2018 End: 81-17-383622 g, Oral, DAILY PRN, Starting on 09/02/22 at 2314, Until Discontinued, Constipation First line therapy for constipationpolyethylene glycol (GLYCOLAX) 17 gram packet Take 17 g by mouth 2 (two) times a day as needed (constipation). Activepolyethylene glycol (GLYCOLAX) 17 g packet Take 1 packet by mouth as needed for Constipation 1-2 times per day PRN ActivePotassium Chloride (20 sources)Start: 43-35-2038vrbesxtfl chloride (K-TAB,KLOR-CON) CR tablet 30-50 mEqStart: 24-52-4134wpzrrbeaq chloride (KLOR-CON M 20) CR tablet 20-40 mEq Start: 64-71-6153iwkjwzzkk chloride (KLOR-CON M) extended release tablet 40 mEq Start: 95-03-4700pvsrauwfr chloride (KLOR-CON M) extended release tablet 40 mEq Start: 46-29-0647rlovzumom chloride (KLOR-CON M) extended release tablet 40 mEq Start: 66-90-4204vexgzulzk chloride (KLOR-CON M) extended release tablet 40 mEq Start: 06-14-2023 End: mEq, Oral, DAILY, First dose on Sun02/06/24 at 0945, Until Discontinued, Do not crush, chew, or suck on tablet. Tablet may also be broken in half and each half swallowed separately.Start: 35-72-5949riuugnbwc chloride (KLOR-CON M) extended release tablet 40 mEqStart: 04-26-2023 End: 54-51-8472ryvnqnvho chloride 10 mEq/100 mL IVPB (Peripheral Line)Start: 07-68-7938pdatjajha chloride (KLOR-CON M) extended release tablet 40 mEqStart: 04-08-2023 End: mEq, intravenous, at 100 mL/hr, Administer over [...] With each potassium result continue the replacement ordersas needed VESICANT (YELLOW) Infuse each 10 mEq over a minimum of 1 hour., Indications: hypokalemiaStart: 09-03-2022 End: 46-92-4283vqyutbvlm chloride 10 mEq/100 mL IVPB (Peripheral Line)Start: 33-72-5971ylbquhkvp chloride (KLOR-CON M) extended release tablet 40 mEq primidone 250 mg oral tablet (20 sources)Anti-epileptic AgentStart: 68-06-1170bcnj 375 mg by mouth once daily 375 mg, oral, Nightly, First dose on Sun01/06/25 at 2200Start: 70-22-3994qybz 250 mg by mouth once khook353 mg, oral, Daily, First dose on Sun01/06/25 at 1345 Start: 06-48-4138peci 375 mg by mouth once hvadk291 mg, oral, Nightly, First dose on Sun10/18/24 at 2200Start: 95-78-3980fliq 375 mg by mouth once mg, Oral, NIGHTLY, First dose on Sun07/14/24 at 2100, Until DiscontinuedStart: 05-88-5465jmom 375 mg by mouth once yykua033 mg, Oral, NIGHTLY, First dose on Sun04/22/24 at 2100, Until DiscontinuedStart: 05-27-1729gbjy 375 mg by mouth once xooaa757 mg, Oral, NIGHTLY, First dose on Sun02/06/24 at 1900, Until DiscontinuedStart: 46-67-0572dcto 375 mg by mouth once vedyr672 mg, Oral, NIGHTLY, First dose on Sun06/21/23 at 0030, Until DiscontinuedStart: 06-11-2023 take 375 mg by mouth once mg, Oral, NIGHTLY, First dose on Sun06/11/23 at 2315, Until DiscontinuedStart: 48-93-9913qxog 375 mg by mouth once uhpkw002 mg, Oral, NIGHTLY, First dose on Sun04/28/23 at 2100, Until DiscontinuedStart: 04-17-2023 End: 16-13-7249qrbl 375 mg by mouth once eafji533 mg, oral, Nightly, First dose on Sun04/17/23 at 2200Start: 04-03-2017 End: 21-59-9494fqho 375 mg by mouth once vrtla045 mg, Oral, NIGHTLY, First dose on Sun09/02/22 at 2330, Until DiscontinuedStart: 05-96-1694fklrrlywt 250 mg Tab See Instructions, pt takes 1 tablet in am and 1 1/2 tablet at night, Refills(s) 0, Seizure Start Date: 08/14/15 Status: OrderedStart: 79-18-8582pojmeubux 250 mg Tab 375 mg = 1.5 tab(s), Oral, Once a day (at bedtime), Refills(s) 0, Seizure Start Date: 08/14/15 Status: Ordered Repeat number: 1Start: 02-23-2005 End: 55-00-0612elpw 250 mg by mouth once mg, oral, Daily, First dose on Sun10/18/24 at 0900take 1.5 tablets by mouth once dailyprimidone (MYSOLINE) 250 mg tablet Take 1.5 tablets (375 mg total) by mouth nightly. Activetake 2 tablets by mouth once dailyprimidone (Mysoline) 250 MG tablet Take 500 mg by mouth 1 (one) time each day Activesaccharomyces boulardii 250 mg oral capsule (3 sources)take 1 capsule by mouth in the morningSaccharomyces boulardii (FLORASTOR) 250 mg capsule Take 1 capsule (250 mg total) by mouth in the mor kaleigh. ActiveSenna Leaves (5 sources)Start: 33-34-4991bpqv 1 tablet by mouth twice dailysenna 8.6 mg Tab 8.6 mg = 1 tab(s), Oral, BID, Refills(s) 0 Start Date: 07/05/21 Status: Ordered sennosides, snf 8.6 mg oral tablet (20 sources)Start: 48-00-9455axub 1 tablet by mouth twice dailysenna 8.6 mg Tab 8.6 mg = 1 tab(s), Oral, BID, Refills(s) 0 Start Date: 07/05/21 Status: Ordered Repeat number: 1Sennosides (SENNA) 8.6 mg cap Take by mouth. Activetamsulosin hydrochloride 0.4 mg oral capsule (20 sources)alpha-Adrenergic BlockerStart: 68-09-4755nydd 0.4 mg by mouth twice daily0.4 mg, oral, 2 times daily, First dose on Sun01/06/25 at 2100, Do not crush or chew.Start: 49-43-6321gilq 0.4 mg by mouth twice daily0.4 mg, oral, 2 times daily, First dose on Sun10/18/24 at 0900, Do not crush or chew.Start: 80-14-8420zbfg 0.4 mg by mouth twice daily at mealtime0.4 mg, Oral, 2 TIMES DAILY, First dose on Sun07/14/24 at 1400, Until Discontinued, Do not crush or break. Give 30 minutes after a full meal to limit risk of orthostatic hypotension/falls.Start: 03-73-7081onrr 0.4 mg by mouth twice daily at mealtime 0.4 mg, Oral, 2 TIMES DAILY, First dose on Vilma 06/19/24 at 0930, Until Discontinued, Do not crush orbreak. Give 30 minutes after a full meal to limit risk of orthostatic hypotension/falls.Start: 59-83-4895oivv 0.4 mg by mouth twice daily at mealtime0.4 mg, Oral, 2 TIMES DAILY, First dose on Tu04/22/24 at 2100, Until Discontinued, Do not crush orbreak. Give 30 minutes after a full meal to limit risk of orthostatic hypotension/falls.Start: 24-36-1994wgzy 0.4 mg by mouth twice daily at mealtime0.4 mg, Oral, 2 TIMES DAILY, First dose (after last modification) on Sun02/06/24 at 1100, Until Discontinued, Do not crush or break. Give 30 minutes after a full meal to limit risk of orthostatic hypo tension/falls.Start: 40.4 mg, Oral, 2 TIMES DAILY, First dose on 06/11/23 at 2315, Until Discontinued Do not crush or break. Give 30 minutes after a full meal to limit risk of orthostatic hypotension/falls.Start: 40.4 mg, Oral, 2 TIMES DAILY, First dose on 04/28/23 at 1230, Until Discontinued Do not crush or break. Give 30 minutes after a full meal to limit risk of orthostatic hypotension/falls.Start: 11-11-2022 End: 35-70-5242giakvjcmzj 0.4 mg Cap 0.4 mg = 1 cap(s), Cap, Oral, Start date 11/11/22 9:00:00 EDT, 11/08/22 16:05:00 EDT Start Date: 11/11/22 Stop Date: 11/11/22 Status: CompletedStart: 92-16-7643wgoawyhqek (FLOMAX) capsule 0.4 mgStart: 06-27-2022 End: 55-64-9856Nzhfxw 0.4 mg Cap 0.4 mg = 1 cap(s), Cap, Oral, Start date 06/27/22 9:00:00 EDT, 06/24/22 14:11:00 EDT Start Date: 06/27/22 Stop Date: 06/27/22 Status: CompletedStart: 04-03-2017 End: 11-53-3867dyko 1 capsule by mouth twice dailytamsulosin (FLOMAX) 0.4 mg capsule,extended release 24hr Indications: Benign prostatic hyperplasia with urinary frequency Take 1 capsule (0.4 mg total) by mouth 2 (two) times a day. 180 capsule 1 04/03/2017 Activetake 1 capsule by mouth once dailytamsulosin (FLOMAX) 0.4 MG capsule Take 0.4 mg by mouth nightly 0 ActivetraZODone hydrochloride 50 mg oral tablet (15 sources)Serotonin Reuptake InhibitorStart: 07-05-2021 End: 78-48-1577zoaq 1 tablet by mouth at bedtimetraZODONE 50 mg Tab 50 mg = 1 tab(s), Oral, Bedtime, Refills(s) 0 Start Date: 07/05/21 Status: OrderedVitamin B- 12 1000 mcg oral tablet (3 sources)Start: 57-11-1131jdho 1 tablet by mouth once dailyVitamin B-12 1000 mcg oral tablet 1,000 mcg = 1 tab(s), Oral, Daily Start Date: 07/21/24 Status: Ordered Repeat number: 1vitamin b12 1 mg oral tablet (20 sources)Vitamin O69Dytfg: 20-36-1136vxkr 1 tablet by mouth once daily cyanocobalamin (Vitamin B-12) 1000 MCG tablet Take 1,000 mcg by mouth Daily 06/16/2024 ActiveStart: 64-01-9189qoap 1000 ug by mouth once daily1,000 mcg, Oral, DAILY, First dose on Sun04/22/24 at 1745, Until DiscontinuedStart: 06-12-2023 End: 44-24-2603evgt 1000 ug by mouth once daily1,000 mcg, Oral, DAILY, First dose on Sun06/12/23 at 0900, Until DiscontinuedStart: 04-19-2023 End: 67-50-3298nlvm 1 tablet by mouth in the morningcyanocobalamin 1000 MCG tablet Take 1 tablet (1,000 mcg total) by mouth in the morning. 30 tablet 01/04/2025 Discontinued (Therapy completed)Start: 04-09-2023 End: 90-15-3439bedwwo 1000 ug by intramuscular injection once daily1,000 mcg, intramuscular, Daily, First dose on Sun04/09/23 at 1445, For 5 dosesVitamin D 1000 intl units (25 mcg) Tab (9 sources)Start: 32-92-4790zvqy 1 tablet by mouth once dailyVitamin D 1000 intl units (25 mcg) Tab 25 mcg = 1 tab(s), Oral, Daily, Refills(s) 0 Start Date: 06/24/22 Status: Ordered Repeat number: 1Start: 04-20-7074ckhg 1 tablet by mouth once dailyVitamin D 1000 intl units (25 mcg) Tab 25 mcg = 1 tab(s), Oral, Daily, Refills(s) 0 Start Date: 06/24/22 Status: OrderedZofran ODT 4 mg Tab-Dis (1 source)Start: 31-58-1354afkt 1 tablet by mouth every eight hoursZofran ODT 4 mg Tab-Dis 4 mg = 1 tab(s), Oral, q8hr, # 10 tab(s), Refills(s) 0, Pharmacy: [address], 172.7, cm, 02/28/21 17:40:00 EST, Height/Length Dosing, 94.1, kg, 02/28/21 17:40:00 EST, Weight Dosing Start Date: 02/28/21 Status: Ordered Completed/Discontinued Medications MedicationDrug Class(es)DatesSig (Normalized)Sig (Original)bisacodyl 10 mg rectal suppository (2 sources)Stimulant LaxativeStart: 06-13-2023 End: 79-76-3774osokofatb (DULCOLAX) suppository 10 mgStart: 09-03-2022 End: 08-99-0711vnmxembqx (DULCOLAX) suppository 10 mgcalcium chloride 0.0014 meq/ml / potassium chloride 0.004 meq/ml / sodium chloride 0.103 meq/ml / sodium lactate 0.028 meq/ml injectable solution (3 sources)Start: 08-18-2024 End: 39-11-9886UjphqFJIuhv, at 75 mL/hr, CONTINUOUS, Starting on 08/18/24 at 2230Start: 09-02-2022 End: 97-01-0519ZgebhJYNjxo, at 75 mL/hr, CONTINUOUS, Starting on Sun09/02/22 at 2330Start: 05-09-2022 End: 00-16-7460otawanjd ringers IV soln infusioncefTRIAXone (ROCEPHIN) 2,000 mg in sodium chloride 0.9 % 50 mL IVPB (Kqew1Moc) (2 sources)Start: 06-12-2023 End: 23-83-8508hexFKNZVahe (ROCEPHIN) 2,000 mg in sodium chloride 0.9 % 50 mL IVPB (Wzsk0Kjv)Start: 06-11-2023 End: 43-22-6956zljJQTIDihg (ROCEPHIN) 2,000 mg in sodium chloride 0.9 % 50 mL IVPB (Stdr2Cpa)cefTRIAXone (ROCEPHIN) 2,000 mg in sterile water 20 mL IV syringe (1 source)Start: 07-14-2024 End: 05-98-9143lkha 100 mg intravenously once2,000 mg, IntraVENous, ONCE, On 07/14/24 at 0930, For 1 dose, Administer as slow IV Push over 5 mins Reconstitute 2 g vials with 19.2 mL of designated diluent to produce a 100mg/mL solutiondiatrizoate meglumine & sodium (GASTROGRAFIN,GASTROVIEW) 66-10 % solution 120 mL (1 source)Start: 10-16-2024 End: 45-23-2908249 mL, nasogastric, Once in imaging, contrast, Starting on Vilma 10/16/24 at 0828, For 1 dosediatrizoate meglumine-sodium (GASTROGRAFIN) 66-10 % solution 120 mL (3 sources)Start: 18-38-5723wxco 120 mL by mouth once as mweckv107 mL, Oral, IMG ONCE PRN, Starting on Sun04/21/24 at 0919, Until Discontinued, Other, Please contact radiology for appropriate dilution instructions based on the procedure being performed.Start: 70-19-1181wwea 120 mL by mouth once as mL, Oral, IMG ONCE PRN, Starting on Sun02/05/24 at 1158, Until Discontinued, Other, Please contact radiology for appropriate dilution instructions based on the procedure being performed.Start: 40-61-7143arhifwchgxo meglumine-sodium (GASTROGRAFIN) 66-10 % solution 120 mLdiphenhydrAMINE hydrochloride 25 mg oral tablet (2 sources)Histamine-1 Receptor Antagonist End: 87-83-3247lmmi 1 tablet by mouth every four hours as neededdiphenhydrAMINE (BENADRYL) 25 MG tablet Take 1 tablet by mouth every 4 hours as needed for Itching (rash) 0 09/03/2022 Discontinued (LIST CLEANUP)Emollient (CERAVE) CREA (3 sources) End: 20-40-5799Zzggeczvp (CERAVE) CREA Apply topically Apply topically to dry skin 2-3 times a day 02/07/2024 Discontinued (Stop Taking at Discharge)Emollient (CERAVE) CREA Apply topically Apply topically to dry skin 2-3 times a day 0 ActiveEmollient (CERAVE) CREA Apply topically Apply topically to dry skin 2-3 times a day 0 Suspended2 ml famotidine 10 mg/ml injection (1 source)Histamine-2 Receptor AntagonistStart: 10-14-2024 End: 16-54-037566 mg, intravenous, Every 12 hours scheduled, First dose on Sun10/14/24 at 2100, Dilute to total volume of 5 mL with 0.9% sod chl and administer IVP over 2 minutes.famotidine (PEPCID) 20 mg in sodium chloride (PF) 0.9 % 10 mL injection (3 sources)Start: 04-19-2024 End: 05-31-5240zsio 10 mL intravenously twice daily20 mg, IntraVENous, 2 TIMES DAILY, First dose on Sun04/19/24 at 2100, Until Discontinued, IV Push over minimum of 2 minutes - Dilute with 10 mL NSStart: 02-04-2024 End: 41-36-7723teno 10 mL intravenously twice daily20 mg, IntraVENous, 2 TIMES DAILY, First dose on Sun02/04/24 at 0900, Until Discontinued, IV Push over minimum of 2 minutes - Dilute with 10 mL NSStart: 08-31-1890ptrxsdqnki (PEPCID) 20 mg in sodium chloride (PF) 0.9 % 10 mL rvwoqddky887 ml glucose 50 mg/ml / sodium chloride 4.5 mg/ml injection (3 sources)Start: 10-16-2024 End: 25-07-4907kinn 75 mL intravenously every hour75 mL/hr, intravenous, Continuous, Starting on Sun10/16/24 at 1315, For 1 dayStart: 06-11-2023 End: 42-57-9722McgmwZGOgzj, at 75 mL/hr, CONTINUOUS, Starting on Sun06/11/23 at 1500, For 48 hoursStart: 04-12-2023 End: 43-97-7442buyn 75 mL intravenously every hour75 mL/hr, intravenous, Continuous, Starting on Sun04/12/23 at 1045iohexoL (OMNIPAQUE) 300 mg iodine/mL 100 mL (1 source)Start: 10-14-2024 End: 98-86-9143952 mL, intravenous, Once in imaging, contrast, Starting on Sun10/14/24 at 1229, For 1 dose, VESICANT (RED)iohexoL (OMNIPAQUE) 300 mg iodine/mL 24 mL (1 source)Start: 10-14-2024 End: mL, oral, Once in imaging, contrast, Starting on Sun10/14/24 at 1229, For 1 dose, Call CT department prior to administering oral contrast to confirm appt time Mix Omnipaque with purified water as per dosage guidelines. Administer to patient. Inform CT dept when patient finished drinking. Age guid elines: - 3 months: 5 mL Omni 180 (contact imaging dept for details) + 55 mL water = 60 mL or 2 oz total volume 3 months - 12 months: 6 mL Omni 300 + 114 mL water = 120 mL (4 oz) total volume1 - 5 years: 12 mL Omni 300 + 228 mL water = 240 mL (8 oz) total volume 6yrs - 10 yrs: 18 mL Omni 300 + 342 mL water = 360 mL (12 oz) total volume 11yrs and older: 24 mL Omni 300 + 456 mL water = 480mL (16 oz) total volume Patients with a known allergy to contrast media will require a steroid premedication prep prior to oral administration. Redicat can be administered as an alternative. IF PATIENT IS S/P BARIATRIC SURGERY: 1. Early post-op (one to ten days) - When the concern is a leak 30 cc'sof contrast should be enough given about [address]t. 2. Late post-op(10 plus days) - The volume given can be about 2/3 the standard amount. The last 1/3 should be given immediately pre-CT. VESICANT (RED)iopamidol (ISOVUE-370) 76 % injection 75 mL (7 sources)Start: 08-18-2024 End: 02-07-4418lvnv 1 dose intravenously once75 mL, IntraVENous, IMG ONCE PRN, 1 dose, Starting on 08/18/24 at 1852, Until 08/18/24 at 1856, OtherStart: 07-14-2024 End: 80-88-7507sgaq 1 dose intravenously once75 mL, IntraVENous, IMG ONCE PRN, 1 dose, Starting on 07/14/24 at 0832, Until 07/14/24 at 0832, OtherStart: 06-16-2024 End: 52-83-5940nyem 1 dose intravenously once75 mL, IntraVENous, IMG ONCE PRN, 1 dose, Starting on 06/16/24 at 1127, Until Sun06/16/24 at 1133, OtherStart: 04-19-2024 End: 11-29-0278advb 1 dose intravenously once75 mL, IntraVENous, IMG ONCE PRN, 1 dose, Starting on 04/19/24 at 1458, Until 04/19/24 at 1502, OtherStart: 06-11-2023 End: 51-80-5380fiqqgxyol (ISOVUE-370) 76 % injection 75 mLStart: 09-02-2022 End: 87-65-2845ylzjcdhpk (ISOVUE-370) 76 % injection 75 mLStart: 06-21-2022 End: 23-93-0471ndgiieuhv (ISOVUE-370) 76 % injection 75 mLketotifen 0.25 mg/ml ophthalmic solution (3 sources)Histamine-1 Receptor InhibitorStart: drop, Both Eyes, 2 TIMES DAILY, First dose on 07/14/24 at 1400, Until Discontinued, Substituted for Olopatadine (Patanol 0.1%/Pataday 0.2%/Pazeo 0.7%).Start: drop, Both Eyes, DAILY, First dose on Vilma 06/19/24 at 0930, Until Discontinued, Substituted for Olopatadine (Patanol 0.1%/Pataday 0.2%/Pazeo 0.7%).Start: drop, Both Eyes, 2 TIMES DAILY, First dose on Sun04/19/24 at 2100, Until Discontinued, Substituted for Olopatadine (Patanol 0.1%/Pataday 0.2%/Pazeo 0.7%).lacosamide (VIMPAT) 150 mg in sodium chloride 0.9 % 65 mL IVPB (4 sources)Start: 04-26-2023 End: 05-68-0449zrrbcgnidw (VIMPAT) 150 mg in sodium chloride 0.9 % 65 mL IVPB Start: 09-04-2022 End: 34-57-5940amkbcrnoqd (VIMPAT) 150 mg in sodium chloride 0.9 % 65 mL IVPB Start: 01-11-5586emdkftgjkb (VIMPAT) 150 mg in sodium chloride 0.9 % 65 mL IVPB Start: 05-09-2022 End: 23-44-4053qwqfseodhi (VIMPAT) 150 mg in sodium chloride 0.9 % 65 mL IVPB levETIRAcetam (KEPPRA) 1,000 mg in sodium chloride 0.9 % 110 mL IVPB (2 sources)Start: 01-05-2025 End: ,000 mg, intravenous, at 440 mL/hr, Administer over 15 Minutes, Every 12 hours scheduled, First dose on Sun01/05/25 at 0830, Look-alike/sound-alike medication. Verify indication for use.Start: 10-14-2024 End: 01-82-4047fkam 1000 mg intravenously every twelve hours1,000 mg, intravenous, at 440 mL/hr, Administer over 15 Minutes, Every 12 hours, First dose on Sun10/14/24 at 1500, Look-alike/sound-alike medication. Verify indication for use.levETIRAcetam (KEPPRA) 1,500 mg in sodium chloride 0.9 % 100 mL IVPB (2 sources)Start: 06-22-2022 End: 90-06-5227tdaUADFZjuuql (KEPPRA) 1,500 mg in sodium chloride 0.9 % 100 mL IVPBStart: 05-09-2022 End: 50-11-1144ykoOUYHHygasn (KEPPRA) 1,500 mg in sodium chloride 0.9 % 100 mL IVPBlevETIRAcetam (KEPPRA) 2,000 mg in sodium chloride 0.9 % 120 mL IVPB (1 source)Start: 04-08-2023 End: ,000 mg, intravenous, at 480 mL/hr, Administer over 15 Minutes, Bedtime, First dose on Sun04/08/23 at 2200, Look-alike/sound-alike medication. Verify indication for use.levETIRAcetam (KEPPRA) 2,000 mg in sodium chloride 0.9 % 250 mL IVPB (2 sources)Start: 06-17-2024 End: ,000 mg, IntraVENous, NIGHTLY, First dose on Sun06/17/24 at 2100, Until DiscontinuedStart: 09-74-2375rlwVFNDIxyscx (KEPPRA) 2,000 mg in sodium chloride 0.9 % 250 mL IVPB10 ml lidocaine hydrochloride 10 mg/ml injection (1 source)Antiarrhythmic, Amide Local AnestheticStart: 06-11-2023 End: 11-13-3386wtgxchfut 1 % injection 5 mL5 ml metoprolol tartrate 1 mg/ml injection (1 source)beta-Adrenergic BlockerStart: 06-16-2024 End: mg, IntraVENous, Once, 1 dose, On Sun06/16/24 at 1730Start: 06-16-2024 End: mg, IntraVENous, Once, 1 dose, On Sun06/16/24 at 1730 NONFORMULARY (16 sources) End: 11-90-1597mkzs 2 tablets by mouth once dailyNONFORMULARY Take 2 tablets by mouth daily Inulin-chromium picolinate 2gm-100mcg chewable tab 0 06/11/2023 Discontinued (LIST CLEANUP)take 2 tablets by mouth once dailyNONFORMULARY Take 2 tablets by mouth daily Inulin-chromium picolinate 2gm-100mcg chewable tab 0 Active End: 60-16-1024NJNPYMSDFLWH Indications: Seizure , Valium [address] rectally as needed Indications: Seizure, Valium 20 mg suppository 0 05/12/2022 Discontinued (Stop Taking at Discharge)NONFORMULARY Indications: Seizure , Valium [address] rectally as needed Indications: S eizure, Valium 20 mg suppository 0 Nggzds44 hr oxybutynin chloride 10 mg extended release oral tablet (20 sources)Cholinergic Muscarinic AntagonistStart: 18-87-0542ohlc 10 mg by mouth once daily10 mg, Oral, DAILY, First dose on Sun06/12/23 at 0900, Until Discontinued Do not crush or break.Start: 43-17-2166hirdzxnmyk (DITROPAN-XL) extended release tablet 10 mgStart: 06-24-2022 End: 58-60-9213nstb 1 tablet by mouth once dailyoxybutynin 10 mg ER Tab 10 mg = 1 tab(s), Oral, Daily, Refills(s) 0 Start Date: 06/24/22 Status: Orderedtake 1 tablet by mouth every twenty-four hours in the morningoxybutynin XL (Ditropan- XL) 10 MG 24 hr tablet Take 10 mg by mouth in the morning. Do not crush, chew, or split.. Activepantoprazole (PROTONIX) 40 mg in sodium chloride (PF) 0.9 % 10 mL injection (3 sources)Start: 06-12-2023 End: 85-99-6007zpgoxqcxcmkg (PROTONIX) 40 mg in sodium chloride (PF) 0.9 % 10 mL injectionStart: 92-68-1404bldjhschvymn (PROTONIX) 40 mg in sodium chloride (PF) 0.9 % 10 mL injectionStart: 73-12-7822waarhaifbbml (PROTONIX) 40 mg in sodium chloride (PF) 0.9 % 10 mL injectionpolyethylene glycol 400 4 mg/ml / propylene glycol 3 mg/ml ophthalmic solution (2 sources) End: 99-76-4635kjugnkees glycol-propyl glycol 0.4-0.3 % (SYSTANE) 0.4-0.3 % ophthalmic solution Place 1 drop into both eyes nightly Systane nighttime ointment 0 06/11/2023 Discontinued (Medication Clarified)1000 ml potassium chloride 0.02 meq/ml / sodium chloride 9 mg/ml injection (1 source)Start: 04-08-2023 End: 60-29-2402avvv 50 mL intravenously every hour50 mL/hr, intravenous, Continuous, Starting on Sun04/08/23 at 0945prochlorperazine 5 mg/ml injectable solution (1 source)PhenothiazineStart: 65-14-3550snwi 5 mg intravenously every six hours as miupja49 mg, IntraVENous, EVERY 6 HOURS PRN, Starting on Sun04/24/23 at 2247, Until Discontinued, Nausea If administering IV push, administer at a maximum rate of 5 mg/minute. If zofran doesn't jwpa7024 ml sodium chloride 9 mg/ml injection (20 sources)Start: 01-05-2025 End: ,000 mL, intravenous, at 492 mL/hr, Administer over 122 Minutes, Once, On Sun01/05/25 at 1230, For1 doseStart: 01-05-2025 End: 28-17-9339pikj 100 mL intravenously every idcb787 mL/hr, intravenous, Continuous, Starting on Sun01/05/25 at 0830, For 1 dayStart: 14-52-1874cglc 10 mL intravenously every twelve hourssodium chloride 0.9 % flush 10 mLStart: 01-04-2025 End: 97-73-5730rmng 75 mL intravenously every hour75 mL/hr, intravenous, Continuous, Starting on Sun01/04/25 at 2330, For 1 dayStart: mL, intravenous, As needed, line care, before and after each intermittent use, Starting on Sun01/04/25 at 1613Start: 10-14-2024 End: 10-83-6864ipop 75 mL intravenously every hour75 mL/hr, intravenous, Continuous, Starting on Sun10/15/24 at 1445, For 1 dayStart: 10-14-2024 End: 26-28-7289sqjf 20 mL intravenously every hour as snxyth15 mL/hr, intravenous, Continuous PRN, to maintain patency of lines, Starting on Sun10/14/24 at 1552, For 1 dayStart: 69-81-5038Gbyvk: 01-20-2039rkhx 20 mL intravenously every twelve hourssodium chloride 0.9 % flush 20 mLStart: 81-53-435321 mL, intravenous, Once in imaging, pre/post contrast, Starting on Sun10/14/24 at 1229, For 1 doseStart: 27-97-451344 mL, intravenous, As needed, line care, Starting on Sun10/14/24 at 1229Start: -40 mL, IntraVENous, EVERY 12 HOURS SCHEDULED (2 times per day), First dose on Sun08/19/24 at 2100, Until Discontinued, For Line Patency: Peripheral IV = 5 mL; Midline or Central Line = 10 mL/lumen.If following IV push medication, administer flush at same rate as the IV push. Flush volume is determined by type of infusion therapy being given. For non-viscous solutions use: Peripheral IV = 5 mL Midline or Central Line = 10 mL/lumen For viscous solutions (i.e. blood components, parenteral nutrition, contrast media, or after obtaining blood sample) use: Peripheral IV = 10 mL Midline or CentralLine = 20 mL/lumenStart: 07-96-1863rjwc 20 mL intravenously every hourIntraVENous, at 5-250 mL/hr, PRN, if patient receiving piggyback infusions and maintenance fluids are not ordered OR KVO fluids to protect IV site / prevent frequent line interruptions/ long duration, Starting on Sun08/19/24 at 1215, For piggyback infusion, administer at same rate [...] mL/hr or less into rate field of order.Start: -40 mL, IntraVENous, PRN, Starting on Sun08/19/24 at 1215, Until Discontinued, Line Care, After every IV [...] For viscous solutions (i.e. blood components, parenteral nutrition,contrast media, or after obtaining blood sample) use: Peripheral IV = 10 mL Midline or Central Line= 20 mL/lumenStart: 67-86-9691Defew: mL, IntraVENous, EVERY 12 HOURS SCHEDULED (2 times per day), First dose on Sun08/18/24 at 2230, Until DiscontinuedStart: 70-99-4008Onvks: 66-17-4370Bmbvn: 07-14-2024 End: 33-15-7927UlbovYHQrpj, at 125 mL/hr, CONTINUOUS, Starting on Sun07/14/24 at 1400Start: -40 mL, IntraVENous, EVERY 12 HOURS SCHEDULED (2 times per day), First dose on Sun06/17/24 at 2100, Until Discontinued, For Line Patency: Peripheral IV = 5 mL; Midline or Central Line = 10 mL/lumen.If following IV push medication, administer flush at same rate as the IV push. Flush volume is determined by type of infusion therapy being given. For non- viscous solutions use: Peripheral IV = 5 mL Midline or Central Line = 10 mL/lumen For viscous solutions (i.e. blood components, parenteral nutrition, contrast media, or after obtaining blood sample) use: Peripheral IV = 10 mL Midline or CentralLine = 20 mL/lumenStart: 83-61-7618mxab 20 mL intravenously every hourIntraVENous, at 5-250 mL/hr, PRN, if patient receiving piggyback infusions and maintenance fluids are not ordered OR KVO fluids to protect IV site / prevent frequent line interruptions/ long duration, Starting on Sun06/17/24 at 1434, For piggyback infusion, administer at same rate [...] mL/hr or less into rate field of order.Start: -40 mL, IntraVENous, PRN, Starting on Sun06/17/24 at 1434, Until Discontinued, Line Care, After every IV [...] For viscous solutions (i.e. blood components, parenteral nutrition,contrast media, or after obtaining blood sample) use: Peripheral IV = 10 mL Midline or Central Line= 20 mL/lumenStart: mL, IntraVENous, EVERY 12 HOURS SCHEDULED (2 times per day), First dose on Sun06/16/24 at 2100, Until DiscontinuedStart: 89-37-9270Fjiwz: 06-16-2024 End: 51-86-5084IbwndPCKmvf, at 75 mL/hr, CONTINUOUS, Starting on Sun06/17/24 at 2330, For 24 hours, Complete last bag that is running at 24 hours and then saline lock IVStart: 66-84-102459 mL, IntraVENous, EVERY 12 HOURS SCHEDULED (2 times per day), First dose on Sun04/19/24 at 2100, Until DiscontinuedStart: 55-25-9300Yjmay: 04-19-2024 End: 28-63-4156JcrzhNUFfxr, at 75 mL/hr, CONTINUOUS, Starting on Sun04/19/24 at 1915, For 24 hours, Complete last bag that is running at 24 hours and then saline lock IVStart: 04-19-2024 End: ,000 mL (11 mL/kg), IntraVENous, at 983.6 mL/hr, Administer over 61 Minutes, ONCE, On 04/19/24 at 1045, For 1 doseStart: mL, IntraVENous, EVERY 12 HOURS SCHEDULED (2 times per day), First dose on 02/03/24 at 0900, Until DiscontinuedStart: 24-90-2839Nlmqa: 02-03-2024 End: 19-83-4805AvnstRODuhg, at 75 mL/hr, CONTINUOUS, Starting on 02/03/24 at 0400, For 24 hours, Complete last bag that is running at 24 hours and then saline lock IVStart: .9 % sodium chloride infusionStart: 06-20-2023 sodium chloride flush 0.9 % injection 540 mLStart: 06-11-2023 End: mL, IntraVENous, EVERY 12 HOURS SCHEDULED (2 times per day), First dose on 06/11/23 at 2100, Until DiscontinuedStart: 06-11-2023 IntraVENous, at 5-250 mL/hr, PRN, if patient receiving piggyback infusions and maintenance fluids are not ordered OR KVO fluids to protect IV site / prevent frequent line interruptions/ long duration, Starting on Sun06/11/23 at 1437 For piggyback infusion, administer at same rate as piggyback for a total of 25 mL. Enter 25 mL into dose field and piggyback rate into rate field of order. If piggyback is infusing at a rate less than 100 mL/hr, enter 25 mL into dose field and 100 mL/hr intorate field of order. For KVO fluids, enter rate of 20 mL/hr or less into rate field of order.Start: 87-38-5723kvwb 10 mL intravenously once as mL, IntraVENous, PRN, Starting on Sun06/11/23 at 1437, Until Discontinued, Line Care, After everyIV line useStart: .9 % sodium chloride infusionStart: 06-11-2023 End: 17-08-5358redxcm chloride 0.9 % bolus 500 mLStart: 06-11-2023 End: 17-64-1988hstoyv chloride flush 0.9 % injection 5-40 mLStart: 04-24-2023 End: 34-48-1810SojrpYPRmbi, at 50 mL/hr, CONTINUOUS, Starting on Sun04/24/23 at 2315, For 48 hoursStart: 56-37-8512GulhjGMDtlf, at 5-250 mL/hr, PRN, if patient receiving piggyback infusions and maintenance fluids are not ordered OR KVO fluids to protect IV site / prevent frequent line interruptions/ long duration, Starting on Sun04/24/23 at 2247 For piggyback infusion, administer at same rate as piggyback for atotal of 25 mL. Enter 25 mL into dose field and piggyback rate into rate field of order. If piggyback is infusing at a rate less than 100 mL/hr, enter 25 mL into dose field and 100 mL/hr into rate field of order. For KVO fluids, enter rate of 20 mL/hr or less into rate field of order.Start: 03-05-2252hfpw 1 dose intravenously twice daily5-40 mL, IntraVENous, EVERY 12 HOURS SCHEDULED (2 [...] mL Midline or Central Line = 20 mL/lumenStart: 46-32-5748wuab 10 mL intravenously once as mL, IntraVENous, PRN, Starting on Sun04/24/23 at 2247, Until Discontinued, Line Care, After every IV line useStart: 04-08-2023 End: mL, intravenous, Every 12 hours scheduled, First dose on Sun04/08/23 at 0945Start: 04-08-2023 End: mL, intravenous, As needed, line care, before and after each intermittent use, Starting on 04/08/23 at 0935Start: 04-08-2023 End: 70-04-5642nhpr 20 mL intravenously every hour as egkbqx00 mL/hr, intravenous, Continuous PRN, to maintain patency of lines, Starting on 04/08/23 at 0935Start: 04-08-2023 End: 68-51-0325amjm 25 mL intravenously every hour as uybsac17 mL, intravenous, at 100 mL/hr, Administer over 15 Minutes, As needed, line care, line care after IVPB administration, Starting on 04/08/23 at 0935Start: 00-58-8705FvclzLGCzcx, at 5-250 mL/hr, PRN, if patient receiving piggyback infusions and maintenance fluids are not ordered OR KVO fluids to protect IV site / prevent frequent line interruptions/ long duration, Starting on 09/02/22 at 2314 For piggyback infusion, administer at same rate as piggyback for a total of 25 mL. Enter 25 mL into dose field and piggyback rate into rate field of order. Ifpiggyback is infusing at a rate less than 100 mL/hr, enter 25 mL into dose field and 100 mL/hr intorate field of order. For KVO fluids, enter rate of 20 mL/hr or less into rate field of order.Start: mL, IntraVENous, EVERY 12 HOURS SCHEDULED (2 times per day), First dose on 09/02/22 at 2330, Until DiscontinuedStart: 37-05-5206fvdo 10 mL intravenously once as ahlkwv81 mL, IntraVENous, PRN, Starting on 09/02/22 at 2314, Until Discontinued, Line Care, After everyIV line useStart: 09-02-2022 End: .9 % sodium chloride bolusStart: 90-03-5545blcy 1 dose intravenously twice daily5-40 mL, IntraVENous, EVERY 12 HOURS SCHEDULED (2 times per day), First dose on Sun06/21/22 at 2100, Until Discontinued For Line Patency: Peripheral IV = 5 mL; Midline or Central Line = 10 mL/lumen.&a mp;nbsp; If following IV push medication, administer flush at same rate as the IV push. Flush volume is determined by type of infusion therapy being given. For non-viscoussolutions use: Peripheral IV = 5 mL Midline or Central Line = 10 mL/lumen For viscous solutions (i.e. blood components, parenteral nutrition, contrast media, or after obtaining blood sample) use: Peripheral IV = 10 mL Midline or Central Line = 20 mL/lumenStart: 83-49-1185CcrmoHCSkro, at 125 mL/hr, CONTINUOUS, Starting on Sun06/21/22 at 1730Start: 13-58-4359EuqcpXATjqe, at 5-250 mL/hr, PRN, if patient receiving piggyback infusions and maintenance fluids are not ordered OR KVO fluids to protect IV site / prevent frequent line interruptions/ long duration, Starting on Sun06/21/22 at 1710 For piggyback infusion, administer at same rate as piggyback for atotal of 25 mL. Enter 25 mL into dose field and piggyback rate into rate field of order. If piggyback is infusing at a rate less than 100 mL/hr, enter 25 mL into dose field and 100 mL/hr into rate field of order. For KVO fluids, enter rate of 20 mL/hr or less into rate field of order.Start: 98-08-2319bxgb 10 mL intravenously once as mL, IntraVENous, PRN, Starting on Sun06/21/22 at 1710, Until Discontinued, Line Care, After every IV line useStart: .9 % sodium chloride infusion Start: 92-70-1282ytxfaw chloride flush 0.9 % injection 5-40 mLStart: 05-08-2022 End: .9 % sodium chloride bolussulfamethoxazole 800 mg / trimethoprim 160 mg oral tablet (2 sources)Dihydrofolate Reductase Inhibitor Antibacterial, Sulfonamide AntimicrobialStart: 01-04-2025 End: 92-67-7203nvki 1 tablet by mouth once in the morningsulfamethoxazole- trimethoprim (BACTRIM DS) 800-160 mg per tablet Take 1 tablet by mouth in the morning and 1 tablet before bedtime. Do all this for 5 days. 10 tablet 01/04/2025 01/04/2025 Discontinued (Therapy completed)terazosin 1 mg oral capsule (1 source)alpha-Adrenergic BlockerStart: 04-13-2023 End: mg, nasogastric, Daily, First dose on Sun04/13/23 at 1145 (15 sources)Start: 04-16-2023 End: 10-91-8489008 g, oral, Once in imaging, contrast, contrast, Starting on Sun04/16/23 at 0754, For 1 doseStart: 04-16-2023 End: 44-87-2743ejaz 250 mL by mouth qfca339 mL, oral, Once in imaging, contrast, contrast, Starting on Sun04/16/23 at 0754, For 1 doseStart: 04-16-2023 End: 25-45-9229plop 230 mL by mouth wljk131 mL, oral, Once in imaging, contrast, contrast, Starting on Sun04/16/23 at 0754, For 1 doseStart: 04-16-2023 End: 74-13-1030welm 240 mL by mouth uqiz790 mL, oral, Once in imaging, contrast, contrast, Starting on Sun04/16/23 at 0754, For 1 doseStart: 04-16-2023 End: 42-53-4960sosl 250 mL by mouth hwum219 mL, oral, Once in imaging, contrast, contrast, Starting on Sun04/16/23 at 0754, For 1 doseStart: 04-16-2023 End: 48-73-3649794 g, oral, Once in imaging, contrast, contrast, Starting on Sun04/16/23 at 0754, For 1 doseStart: 04-16-2023 End: 60-12-2345idsa 700 mg by mouth jjvi942 mg, oral, Once in imaging, contrast, contrast, Starting on Sun04/16/23 at 0754, For 1 doseStart: 04-16-2023 End: 27-16-3185680 mL, oral, Once in imaging, contrast, Liquid Polibar plus, Starting on Sun04/16/23 at 0754, For 1 doseStart: 04-16-2023 End: 05-78-5483767 g, oral, Once in imaging, contrast, contrast, Starting on Sun04/16/23 at 0754, For 1 doseStart: 04-16-2023 End: 95-30-9614781 g, oral, Once in imaging, contrast, contrast, Starting on Sun04/16/23 at 0754, For 1 doseStart: 04-16-2023 End: 96-65-1427agau 355 mL by mouth ptsf360 mL, oral, Once in imaging, contrast, contrast, Starting on Sun04/16/23 at 0754, For 1 doseStart: 04-11-2023 End: 14-57-7151663 g, oral, Once in imaging, contrast, contrast, Starting on Sun04/11/23 at 1841, For 1 doseStart: 04-11-2023 End: 12-53-6442bjgc 250 mL by mouth tgdj025 mL, oral, Once in imaging, contrast, contrast, Starting on Sun04/11/23 at 1841, For 1 doseStart: 04-11-2023 End: 41-97-3935prqw 230 mL by mouth yxss057 mL, oral, Once in imaging, contrast, contrast, Starting on Sun04/11/23 at 1841, For 1 doseStart: 04-11-2023 End: 59-18-2052qgob 240 mL by mouth crtv409 mL, oral, Once in imaging, contrast, contrast, Starting on Sun04/11/23 at 1841, For 1 dose (1 source)Start: 04-15-2023 End: mg, intravenous, Once, On Sun04/15/23 at 1100, For 1 dose, Look-alike/sound-alike medication - verify indication for use. (1 source)Start: 04-10-2023 End: 13-81-3704cxpo 60 mL by mouth once60 mL, oral, Once in imaging, contrast, Radiology, Starting on Sun04/10/23 at 0938, For 1 dose, Additional Imaging Orders (1 source)Start: 04-09-2023 End: 42-84-7257034 mg, intravenous, at 440 mL/hr, Administer over 15 Minutes, Daily, First dose on Sun04/09/23 at 1445, For 5 days, Monitor patient for hypersensitivity reactions for at least 30 minutes after the infusion. AVOID the use of H1 antihistamines, such as diphenhydramine, as this may worsen hypersensitivity reactions. Have resuscitation equipment and medications available. (3 sources)Start: 04-09-2023 End: 04-20-2023[Order 1 Start] Name: sodium phosphate 20 mmol in sodium chloride 0.9 % 250 mL IVPB Signed Summary:20 mmol, intravenous, at 42.8 mL/hr, Administer over 6 Hours, As needed, for phosphorus level 2.3 mg/dL or less, Starting on Sun04/09/23 at 0817, Administer over 6 hours via dedicated line (peripheralline). If administered, recheck phosphorus level 4 hours after infusion complete. [Order 1 End] [Order 2 Start] Name: sodium phosphate 20 mmol in sodium chloride 0.9 % 100 mL IVPB Signed Summary: 20 mmol, intravenous, at 26.7 mL/hr, Administer over 4 Hours, As needed, for phosphorus level 2.3 mg/dLor less., Starting on Sun04/09/23 at 0817, Administer over 4 hours via dedicated line (central line). If administered, recheck phosphorus level 4 hours after infusion complete. Infuse using central line access. [Order 2 End] [Order 3 Start] Name: sod phos di, mono-K phos mono (K-PHOS NEUTRAL) 250 mgtablet 2 tablet Signed Summary: 2 tablet, oral, As needed, for phosphorus level 2.3 mg/dL or less.,Starting on Sun04/09/23 at 0817, If dose administered, recheck phosphorus level 4 hours after last dose. Look-alike/sound-alike medication - verify indication for use. Give with a full glass of water.[Order 3 End]Start: 04-09-2023 End: 02-43-2570pjrc 20 mL intravenously every twelve hours[Order 1 Start] Name: Consult PICC nurse - Midline Signed Summary: Reason for consult? Insert PICC, Indication: Difficult Access, Blood Draws, Peripherally incompatible therapy, Number of Lumen(s): 2Lumens, Reason for multiple lumens: multilple IV medications [...] meds known to precipitate. Administer 20 mL perlumen; 40 mL total (for double lumen flush) [Order 4 End]Start: 04-08-2023 End: 25-63-3503ycqq 150 mg intravenously every twelve hggpo645 mg, intravenous, at 130 mL/hr, Administer over 30 Minutes, Every 12 hours, First dose on Sun 04/08 at 1430 Problems Active Problems Problem ClassificationProblemDateDocumented DateEpisodic/ChronicAbdominal hernia (20 sources)Hernia of abdominal cavity; Translations: [Other and unspecified ventral hernia with obstruction, without gangrene]Onset: EpisodicAbdominal pain (5 sources)Generalized abdominal pain; Translations: [Abdominal pain]Onset: 11-25-7524QpiwctnpNpbmr and unspecified renal failure (20 sources)Acute injury of kidney; Translations: [Acute kidney failure, unspecified]Onset: 11-08-2022 Resolved: 20-88-4732BxutiaikBfxoshe disorders (7 sources)Anxiety disorder; Translations: [Anxiety disorder, unspecified]Onset: 079884-27-4819CgkayvwVoeiotkspstvm disorders (20 sources)Severe intellectual disability; Translations: [Severe intellectual disabilities]Onset: 948295-47-6588OgrjsurAxkbpjjs of white blood cells (10 sources)Leukocytosis; Translations: [Elevated white blood cell count, unspecified]Onset: 696587-25-8400FzrqbesTrtrzwpjv of lipid metabolism (20 sources)Hyperlipidemia; Translations: [Hyperlipidemia, unspecified]Onset: 572469-92-5794XbrbajbHnvyalmva usually diagnosed in infancy, childhood, or adolescence (3 sources)Tic disorder; Translations: [Tic disorder, unspecified]Onset: 815454-11-0487SfbxsuqPqxvefczfqavlj and diverticulitis (20 sources)Diverticulitis; Translations: [Diverticulitis of intestine]Onset: 633403-90-2085DqpcyhuHjmkldag; convulsions (20 sources)Epilepsy; Translations: [Epilepsy, unspecified, not intractable, without status epilepticus]Onset: 12-14-2015 Resolved: 437116-63-2439GiuogmuEeuexixbrt disorders (10 sources)Gastroesophageal reflux disease; Translations: [Gastro-esophageal reflux disease without esophagitis]Onset: 804715-28-2526WcfdpboJiylg and electrolyte disorders (20 sources)Dehydration; Translations: [Hypokalemia]Onset: EpisodicGenitourinary symptoms and ill-defined conditions (20 sources)Post-micturition incontinence ; Translations: [Post-void dribbling] Onset: 223352-27-1784KrrlatrVpktzkxs (20 sources)Glaucoma; Translations: [Unspecified glaucoma]Onset: 07-05-2021 46-33-5216UoubypmVhjvyzhifdt of prostate (20 sources)Benign prostatic hypertrophy with outflow obstruction; Translations: [Benign prostatic hyperplasia]Onset: 512598-66-7035OgzufjlGppouudvqz obstruction without hernia (20 sources)Small bowel obstruction; Translations: [Unspecified intestinal obstruction, unspecified as to partial versus complete obstruction]Onset: 10-18-2013 Resolved: 074679-20-9937VlrxafrsSyou effects of cerebrovascular disease (2 sources)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; Translations: [Hemiplegia and hemiparesis following unspecified cerebrovascular disease affecting unspecified side]66-71-1450NvecffaNbtspxb and fatigue (4 sources)Asthenia; Translations: [Weakness]84-49-9016DkwirwxpRoxp disorders (7 sources)Major depression, single episode; Translations: [Major depressive disorder, single episode, unspecified]Onset: 077776-26-2161DgmrtndAnqzea and vomiting (20 sources)Vomiting; Translations: [Vomiting, unspecified]Onset: 11-08-2022 Resolved: 14-26-4019GindwdwpOxksoboisnpxd gastroenteritis (9 sources)Ileitis; Translations: [Noninfective gastroenteritis and colitis, unspecified]Onset: 750914-80-8070SghiyjhjUtpssqiptmh deficiencies (20 sources)Malnutrition (calorie); Translations: [Moderate protein-calorie malnutrition]Onset: 08-10-2016 Resolved: 58-03-2801MleljlaHtvd wounds of head; neck; and trunk (5 sources)Facial laceration ; Translations: [Laceration without foreign body of other part of head, initial encounter]Onset: 779219-36-0199Nsugmdth Osteoarthritis (20 sources)Unspecified osteoarthritis, unspecified site; Translations: [Osteoarthritis]Onset: 338349-04-5450ZkkuhrkWvsca bone disease and musculoskeletal deformities (18 sources)Osteopenia; Translations: [Other specified disorders of bone density and structure, unspecified site]Onset: 953795-65-6954TkgdvharBtpuo connective tissue disease (19 sources)Other symptoms and signs involving the musculoskeletal system; Translations: [Other musculoskeletalsymptoms referable to limbs]Onset: 869712-19-8859TpkpjywqTowrc diseases of bladder and urethra (20 sources)Overactive bladder; Translations: [Overactive bladder]Onset: 957882-63-2649SfdhbuuGawee diseases of kidney and ureters (2 sources)Urinary tract obstruction; Translations: [Other obstructive and reflux uropathy]Onset: 80-22-9057MrnfsvheTnxby ear and sense organ disorders (2 sources)Unspecified hearing loss, unspecified ear; Translations: [Unspecified hearing loss, unspecified ear]Onset: 40-43-6288OowjpdxRqnij gastrointestinal disorders (20 sources)History of bowel obstruction; Translations: [Personal history of other diseases of the digestive system]Onset: 445143-12-3787TqyogqgjNixlh gastrointestinal disorders (1 source)Functional disorder of intestine; Translations: [Other specified functional intestinal disorders]Onset: 65-01-1870GvecaxqpLicvp gastrointestinal disorders (3 sources)Personal history of other diseases of the digestive system; Translations: [Personal history of other diseases of digestive system]Onset: 397820-69-3835SgbnockgGccbp gastrointestinal disorders (1 source)Swollen abdomen; Translations: [Abdominal distension (gaseous)] 68-28-5852ZiznkmffShgye gastrointestinal disorders (1 source)Constipation; Translations: [Constipation, unspecified]05-22-2024 EpisodicOther gastrointestinal disorders (5 sources)Diarrhea, unspecified; Translations: [Diarrhea, unspecified]Onset: 89-97-4614SlkdmfucBcbfm inflammatory condition of skin (15 sources)Seborrheic dermatitis; Translations: [Seborrheic dermatitis, unspecified]Onset: 365312-16-8418TqkpfcdbDypuf lower respiratory disease (1 source)Cough; Translations: [Cough, unspecified type]63-11-0857GykimmsqNdgzd lower respiratory disease (1 source)Shortness of breath; Translations: [Shortness of breath]Onset: 17-67-3828NllcerhjIqifl male genital disorders (16 sources)Wcqafpzso69-68-0092JwscvtewTqjym nervous system disorders (20 sources)H/O: brain disorder; Translations: [Personal history of other diseases of the nervous system and sense organs]Onset: EpisodicOther nervous system disorders (1 source)H/O: epilepsy; Translations: [Personal history of other diseases of the nervous system and sense organs]EpisodicOther nervous system disorders (19 sources)Impairment of balance; Translations: [Other abnormalities of gait and mobility]Onset: 285586-99-2436UnezwghiTzdsd nervous system disorders (5 sources)Finding related to ability to move; Translations: [Other abnormalities of gait and mobility]Onset: 945717-36-0901WpvaypyfDmspw nervous system disorders (1 source)Other abnormalities of gait and mobility; Translations: [Other abnormalities of gait and mobility]Onset: 47-36-9907ZbezmildBmcpg nutritional; endocrine; and metabolic disorders (11 sources)Obesity; Translations: [Obesity, unspecified]Onset: 11-26-2018 89-16-2840TobxwbhNhngy nutritional; endocrine; and metabolic disorders (9 sources)Hypomagnesemia; Translations: [Hypomagnesemia]Onset: 10-18-2023 62-21-5858JmknwpaIvwre nutritional; endocrine; and metabolic disorders (4 sources)Hypocalcemia; Translations: [Hypocalcemia]Onset: ChronicOther nutritional; endocrine; and metabolic disorders (5 sources)Obesity caused by energy imbalance; Translations: [Class 2 obesity due to excess calories with bodymass index (BMI) of 36.0 to 36.9 in adult] 21-49-6442PlkpwuoJjmsj nutritional; endocrine; and metabolic disorders (1 source)Delay in physiological development; Translations: [Unspecified lack of expected normal physiological development in childhood]Onset: 06-25-2022 EpisodicParalysis (20 sources)Cerebral palsy; Translations: [Cerebral palsy, unspecified]Onset: 08-20-2009 Resolved: 432994-02-3353OuybozaSjbugodl codes; unclassified (20 sources)Obstructive sleep apnea syndrome; Translations: [Obstructive sleep apnea (adult) (pediatric)]Onset: 525504-51-1423CcuxmxgIunavjfg codes; unclassified (20 sources)Past history of procedure; Translations: [Presence of other specified functional implants]Onset: 308190-60-1607UposxtqGsaqxxic codes; unclassified (1 source)Presence of other specified functional implants; Translations: [Presence of other specified functional implants]Onset: 92-26-7090Evebkve Residual codes; unclassified (1 source)Obstructive sleep apnea (adult) (pediatric); Translations: [Obstructive sleep apnea (adult) (pediatric)]Onset: 45-81-7290ZqzqfmdCbulpvol codes; unclassified (2 sources)Other specified postprocedural states; Translations: [Other specified postprocedural states]Onset: 07-10-6680WmbfuzulDadyoyepjzb injury; contusion (1 source)Abrasion of other part of head, initial encounter; Translations: [Abrasion of other part of head, initial encounter]Onset: 54-61-7076Vkwlpsoz Thyroid disorders (3 sources)Toxic uninodular goiter; Translations: [Thyrotoxicosis with toxic single thyroid nodule without thyrotoxic crisis or storm]Onset: 02-23-2005 84-91-9458ReazqbaMylnaselkpwy (1 source)Unspecified convulsions / R56.9(ICD-9)Onset: 33-91-6468Tygbgxtymrmj (2 sources)Encounter for screening for malignant neoplasm of colon / Z12.11(ICD-9)Onset: 42-72-2747Uhbxlqsrnhat (1 source)Constipation, unspecified / K59.00(ICD-9)Onset: 07-29-6345Fwbqdesdpwur (1 source)Unsp lack of expected normal physiol dev in childhood / R62.50(ICD-9) Onset: 08-90-4442Azsaytzsizgf (1 source)Third degree hemorrhoids / K64.2(ICD-9)Onset: 71-91-5007Uafivalwhwyw (1 source)Incisional hernia without obstruction or gangrene / K43.2(ICD-9)Onset: 03-39-6898Twmymdfwpxve (1 source)Obstructive sleep apnea (adult) (pediatric) / G47.33(ICD-9)Onset: 69-22-4812Pkqcmsppckqd (1 source)Weakness / R53.1(ICD-9)Onset: 81-80-2540Icqyuachxmkv (1 source)History of falling / Z91.81(ICD-9)Onset: 38-24-5193Odltmanzlkkv (1 source)Hydrocele, unspecified / N43.3(ICD-9)Onset: 36-84-5447Bliethjvctuk (3 sources)Patient encounter elxuic70-45-0927Cjutktppsbsk (1 source)Medical ScreeningOnset: 02-32-6287Pqvtcvximfzd (1 source)Seizure - Prior Hx OfOnset: 78-45-9357Cxqxxotilblk (1 source)illOnset: 10-09-2024 Past or Other Problems Problem ClassificationProblemDateDocumented DateEpisodic/Chronic Administrative/social admission (20 sources)Need for personal care assistance; Translations: [Need for assistance with personal care]Onset: 325837-83-9570VjswlkcbZbdpsnoq reactions (20 sources)Eczema; Translations: [Dermatitis, unspecified]Onset: 04-03-2017 19-65-6762NrjfkgucRzqscvi dysrhythmias (9 sources)Sinus tachycardia; Translations: [Tachycardia, unspecified]Onset: 639356-32-9105FbilqtotPfinmmybxt associated with dizziness or vertigo (4 sources)Dizziness and giddiness; Translations: [Dizziness and giddiness] Onset: 706079-62-5140IoryuaboTillwoyqik and other anemia (7 sources)Anemia; Translations: [Anemia, unspecified]Onset: 07-05-2021 74-64-4521KlyeibrbHbtewgyjaa and other anemia (20 sources)Macrocytic anemia; Translations: [Nutritional anemia, unspecified] Onset: 053444-66-7277UpfofbwpO Codes: Fall (20 sources)Fall in home; Translations: [Unspecified fall, subsequent encounter] Onset: 06-01-2023 Resolved: 330002-08-5292SjlsnsvdQcrvkjdp; convulsions (20 sources)Seizure; Translations: [Unspecified convulsions]Onset: 10-18-2013 Resolved: 316345-01-4725FaexvtrmCpzsudww of lower limb (3 sources)Closed fracture of shaft of fibula; Translations: [Unspecified fracture of shaft of unspecified fibula, initial encounter for closed fracture] Onset: 11-24-2014 Resolved: 611142-04-5659PxehxayeTvbadgyfffafr symptoms and ill-defined conditions (20 sources)Nocturia; Translations: [Retention of urine]Onset: 11-24-2018 45-54-0326IqyolyolIwnrmpzozbl (3 sources)Internal hemorrhoids grade III; Translations: [Third degree hemorrhoids]Onset: 060798-83-8490WltscqleLiwuermpvdvr; infection of eye (except that caused by tuberculosis or sexually transmitteddisease) (20 sources)Blepharitis; Translations: [Unspecified blepharitis unspecified eye, unspecified eyelid]Onset: 637716-65-3479LpayruozFypp disorders (7 sources)Mood disordersOnset: 363530-44-5423Jqtve acquired deformities (20 sources)Ankle joint deformity; Translations: [Unspecified acquired deformity of left lower leg]Onset: 878376-26-8119OtrbtsvuAauqv aftercare (3 sources)Other alf (current) drug therapy; Translations: [OTH PEDIATRIC CLINICAL DIETICIAN CURRENT DRUG THERAPY]Onset: 85-22-1740HlgvxvrxSbtym aftercare (1 source)Patient encounter status; Translations: [Other alf (current) drug therapy]Onset: 675321-60-1784DqhtktcpRbqph aftercare (20 sources)Long-term current use of drug therapy; Translations: [Other watermaster (current) drug therapy]Onset: 034191-07-0020OeqjhciwRaame aftercare (8 sources)Post-discharge follow-up; Translations: [Encounter for follow-up examination after completed treatment for conditions other than malignant neoplasm]Onset: 418766-13-7546WdgtiszbKhmha circulatory disease (12 sources)Respiratory crackles; Translations: [Other specified symptoms and signs involving the circulatory and respiratory systems]Onset: 11-12-2018 01-05-5110GbcudbsdYqkib connective tissue disease (7 sources)Muscle weakness; Translations: [Muscle weakness (generalized)]Onset: 950935-27-4908HxehxablRnghp connective tissue disease (4 sources)Abnormal posture; Translations: [Abnormal posture]Onset: 07-05-2021 96-43-1901RpfbnvlnGexux diseases of kidney and ureters (2 sources)Other obstructive and reflux uropathy; Translations: [Other obstructive and reflux uropathy]Onset: 83-67-4447CbzcilzsXuhrl ear and sense organ disorders (8 sources)Hearing loss; Translations: [Unspecified hearing loss, unspecified ear] Resolved: 740897-72-4001EwtfkmkOfwml gastrointestinal disorders (5 sources)Dysphagia, unspecified; Translations: [DYSPHAGIA UNSPECIFIED]Onset: 30-02-1770NaghnhwhMpjzo gastrointestinal disorders (11 sources)Diarrhea; Translations: [Diarrhea, unspecified]Onset: 07-05-2021 EpisodicOther gastrointestinal disorders (19 sources)Dysphagia; Translations: [Dysphagia, unspecified]Onset: 02-11-2023 18-26-4316OhwcebnjOvrie gastrointestinal disorders (17 sources)Pneumatosis cystoides intestinalis; Translations: [Other specified diseases of intestine]Onset: 239800-11-9785CevcxbeaKadbf gastrointestinal disorders (7 sources)Oropharyngeal dysphagia; Translations: [Dysphagia, oropharyngeal phase]Onset: 720413-41-1586CfmpmndmEvjal gastrointestinal disorders (4 sources)Altered bowel function; Translations: [Change in bowel habit]Onset: 207553-78-9856XsyselytGluuc gastrointestinal disorders (20 sources)Chronic constipation; Translations: [Other constipation]Onset: 871084-13-7335FivaetsyWmgrd gastrointestinal disorders (1 source)Other specified diseases of intestine; Translations: [Other specified diseases of intestine]Onset: 90-70-3154CxotijvmHhhqu gastrointestinal disorders (2 sources)Other specified functional intestinal disorders; Translations: [Other specified functional intestinal disorders]Onset: 64-75-1560XkyriooeYfssw gastrointestinal disorders (1 source)Abdominal distension (gaseous); Translations: [Abdominal distension (gaseous)]Onset: 52-32-2158JbwtpqfzYorez male genital disorders (7 sources)Disorder of male genital organ; Translations: [Hydrocele, unspecified]Onset: 650612-37-8415YjizutbkQyrgp nervous system disorders (20 sources)Impaired cognition; Translations: [Other symptoms and signs involving cognitive functions and awareness]Onset: 808082-95-7098Dhrqerqv Other nutritional; endocrine; and metabolic disorders (20 sources)Developmental delay; Translations: [Unspecified lack of expected normal physiological development in childhood]Onset: EpisodicOther screening for suspected conditions (not mental disorders or infectious disease) (20 sources)INR raised; Translations: [Abnormal coagulation profile]Onset: 02-11-2023 Resolved: 605532-58-8860JempojieJytvgqdqx (except that caused by tuberculosis or sexually transmitted disease) (20 sources)Pneumonia; Translations: [Pneumonia, unspecified organism]Onset: 03-15-2023 Resolved: 282268-10-5676BzjeyhztRnvnpjwj codes; unclassified (1 source)Acquired absence of other specified parts of digestive tract; Translations: [ACQ ABSENCE OTH PART DIGESTV TRACT]Onset: 39-85-7088Mutlatec Residual codes; unclassified (4 sources)Pain; Translations: [Pain, unspecified]Onset: EpisodicResidual codes; unclassified (4 sources)Other specified health status; Translations: [Other specified conditions influencing health status]Onset: 207000-14-4572ShtgltjpVktvmtfo codes; unclassified (8 sources)Insomnia; Translations: [Insomnia, unspecified]Onset: 07-05-2021 89-73-3602DlvtmsypUlpgjlpn codes; unclassified (2 sources)Insomnia, unspecified; Translations: [Insomnia, unspecified]Onset: 76-16-4344YvmmbknxPpjzozsqfl (except in labor) (17 sources)Sepsis; Translations: [Sepsis, unspecified organism]Onset: 05-01-2023 Resolved: 932062-52-3394CegzznzvKudn and subcutaneous tissue infections (4 sources)Cellulitis of periorbital region; Translations: [Periorbital cellulitis]Onset: 808624-35-6906BuzwbywmZqceugc and strains (7 sources)Rupture of posterior tibial tendon; Translations: [Strain of other muscle(s) and tendon(s) of posterior muscle group at lower leg level, unspecified leg, initial encounter]Onset: 264817-74-3976Brfyqexk Unclassified (1 source)Encounter for screening for malignant neoplasm of colon; Translations: [Encounter for screening formalignant neoplasm of colon]Onset: [id number] tract infections (20 sources)Cystitis; Translations: [Cystitis, unspecified without hematuria] Onset: 04-24-2023 Resolved: [id number] Results Test NameValueInterpretationReference RangeFacilityCT BRAIN WO CONTon 01-13-2025 CT BRAIN WO CONTCT BRAIN WO CONT STUDY: CT HEAD WITHOUT CONTRAST CLINICAL HISTORY: Fall Head trauma COMPARISON: February 15, 2023 Procedure: Multi-detector CT performed through the brain without IV contrast. The lack of IV contrast limits evaluation for acute infarct, mass, infectious process,or demyelinating disease.Automated exposure control was utilized. Findings: There is no intracranial hemorrhage, extra-axial fluid collection, mass effect, or hydrocephalus. Romano-white matter differentiation is appropriate. Infarcts and masses may be occult on CT, but grossly no acute infarct identified There is no midline shift. IMPRESSION: * No acute intracranial findings. Consider brain MRI if you suspect occult process. * Chronic dense consolidation left maxillary sinus All CT scans at this facility use dose modulation, iterative reconstruction, and/or weight based dosing when appropriate to reduce radiation dose to as low as reasonably achievable. Finalized by Paul Hammond MD on 01/13/2025 10:09 PMNormalMercy Health Springfield Regional Medical CenterSIDE GLUCOSEon 55-79-1569Pdatbuo [Mass/Vol]106 mg/aAXcvt72-22 [facility] HospitalComment on above:Performed By: #### MG #### [facility] ([facility]) [address] [place] [address] VIRGlucose [Mass/Vol]99 mg/eSSkehef59-66TlgVmtrxjHocking Valley Community HospitalComsouthwest regional rehabilitation center on above:Performed By: #### MG #### [facility] ([address] [address] [facility] Glucose *Place/Obtain serum glucose if >500 per glucometer.on [id number] [Mass/Vol]106 mg/oOCipm68 - 99 mg/dLGreene Memorial HospitalInterpretation and review of laboratory resultsAbnormalSelect Specialty Hospital - [facility] UPMCGlucose [Mass/Vol]99 mg/dL65 - 99 mg/dL Greene Memorial HospitalInterpretation and review of laboratory resultsNormal [facility] UPMCCBC WITH AUTO DIFFERENTIALon [id number] ABSOLUTE COUNT BY AUTOMATED COUNT0.0 X10^9/LNormal0.0-0.2 [facility] on above:Performed By: #### MG #### [facility] ([address] [place] [address] VIRBASOPHILS RELATIVE PERCENT BY AUTOMATED COUNT0.8 %Normal [facility] HospitalComment on above:Performed By: #### MG #### [facility] ([address] [place] [address] VIRCELLAVISION DIFFERENTIAL TYPEAUTOMATED DIFFERENTIALNormal [facility] HospitalComment on above:Performed By: #### MG #### [facility] ([address] [place] [address] VIREosinophils (Bld) [#/Vol]0.3 10*3/uLNormal0.0-0.4[facility] HospitalComment on above:Performed By: #### MG #### [facility] ([address] [place] [address] VIREOSINOPHILS RELATIVE PERCENT BY AUTOMATED COUNT6.5 %Normal [facility] HospitalComment on above:Performed By: #### MG #### [facility] ([address] [place] [address] VIRErythrocyte distribution width (RBC) [Ratio]13.4 %Normal 11.5-15ProChristus Saint Michael HospitalComment on above:Performed By: #### MG #### [facility] ([address] [place] [address] VIRHematocrit (Bld) [Volume fraction]35.6 %Miq00-21XbhBraemoChristus Saint Michael HospitalComment on above:Performed By: #### MG #### [facility] ([address] [place] [address] VIRHemoglobin (Bld) [Mass/Vol]11.7 g/rUNrg16-40MxwNeutlyChristus Saint Michael HospitalComment on above:Performed By: #### MG #### [facility] ([address] [place] [address] VIRLymphocytes (Bld) [#/Vol]1.6 10*3/uLNormal1.0-3.5PZanesville City HospitalComment on above:Performed By: #### MG #### [facility] ([address] [place] [address] VIRLYMPHOCYTES RELATIVE PERCENT BY AUTOMATED COUNT33.1 %Normal [facility] HospitalComment on above:Performed By: #### MG #### [facility] ([address] [place] [address] VIRMCH (RBC) [Entitic mass]31.3 zlEdyeyx07-91DpnNhtmhmChristus Saint Michael HospitalComment on above:Performed By: #### MG #### [facility] ([address] [place] [address] VIRMCHC (RBC) [Mass/Vol]32.8 g/mGFqmjyq29-40TkvTepdmjChristus Saint Michael HospitalComment on above:Performed By: #### MG #### [facility] ([address] [place] [address] VIRMCV (RBC) [Entitic vol]95 zUZzjgaz43-982QhdLzgmxi [facility]ont HospitalComment on above:Performed By: #### MG #### [facility] ([address] [place] [address] VIRMonocytes (Bld) [#/Vol]0.5 10*3/uLNormal0.0-0.9ProChristus Saint Michael HospitalComment on above:Performed By: #### MG #### [facility] ([address] [place] [address] VIRMONOCYTES RELATIVE PERCENT BY AUTOMATED COUNT10.1 %Normal [facility] HospitalComment on above:Performed By: #### MG #### [facility] ([facility]) [address] [place] [address] [place] [address] VIRNEUTROPHILS ABSOLUTE COUNT BY AUTOMATED COUNT2.5 X10^9/L Normal1.5-6.6[facility] HospitalComment on above:Performed By: #### MG #### [facility] ([facility]) [address] [place] [address] [place] [address] VIRNEUTROPHILS RELATIVE PERCENT BY AUTOMATED COUNT49.5 %Normal [facility] HospitalComment on above:Performed By: #### MG #### [facility] ([address] [place] [address] VIRPlatelet mean volume (Bld) [Entitic vol]7.2 fLNormal7-12 [facility] HospitalComment on above:Performed By: #### MG #### [facility] ([address] [place] [address] VIRPlatelets (Bld) [#/Vol]234 10*3/wUJfaxib610-450SfrTtefeh [facility] HospitalComment on above:Performed By: #### MG #### [facility] ([address] [place] [address] VIRRBC COUNT3.74 X10^12/LLow4.1-5.7[facility] Comment on above:Performed By: #### MG #### [facility] ([address] [place] [address] VIRWBC (Bld) [#/Vol]5.0 10*3/uLNormal4-11[facility] HospitalComment on above:Performed By: #### MG #### [facility] ([facility]) [address] [place] [address] [place] [address] VIRCBC auto differentialon [id number] (Bld) [#/Vol] 0.0 10*3/uLGreene Memorial HospitalBasophils/100 WBC (Bld)0.8 %Greene Memorial HospitalDifferential cell count method Nom (Bld)AUTOMATED DIFFERENTIALGreene Memorial HospitalEosinophils (Bld) [#/Vol]0.3 10*3/uLGreene Memorial Hospital Eosinophils/100 WBC (Bld)6.5 %Greene Memorial HospitalErythrocyte distribution width (RBC) [Ratio]13.4 %11.5 - 15 %[facility] Memorial HospitalHematocrit (Bld) [Volume fraction]35.6 %Low39 - 50 %[facility]ene Memorial HospitalHemoglobin (Bld) [Mass/Vol]11.7 g/dLLow13 - 17 g/dLGreene Memorial HospitalInterpretation and review of laboratory resultsAbnormalGreene Memorial HospitalLymphocytes (Bld) [#/Vol]1.6 10*3/uLGreene Memorial HospitalLymphocytes/100 WBC (Bld)33.1 % [facility] Memorial HospitalMCH (RBC) [Entitic mass]31.3 pg27 - 34 [facility] HospitalMCHC (RBC) [Mass/Vol]32.8 g/dL32 - 36 g/dLGreene Memorial HospitalMCV (RBC) [Entitic vol]95 fL80 - 100 [facility] Health SystemMonocytes (Bld) [#/Vol]0.5 10*3/uLGreene Memorial HospitalMonocytes/100 WBC (Bld)10.1 %[facility] Memorial HospitalNeutrophils (Bld) [#/Vol]2.5 10*3/[facility] HospitalNeutrophils/100 WBC (Bld)49.5 %Greene Memorial HospitalPlatelet mean volume (Bld) [Entitic vol] 7.2 fL7 - 12 [facility] Health SystemPlatelets (Bld) [#/Vol]234 10*3/uL Greene [facility] HospitalRBC (Bld) [#/Vol]3.74 10*6/uLLowGreene Memorial Hospital WBC LM Ql (Sput)5.0[facility] UPMCCOMPREHENSIVE METABOLIC PANELon 62-54-3272Ezetplk [Mass/Vol]3.3 g/dLNormal3.2-5.3PZanesville City HospitalComment on above:Performed By: #### MG #### [facility] ([place] [address] [place] [address] VIRALP [Catalytic activity/Vol]111 U/XPadebb48-101SbdQbybybChristus Saint Michael HospitalComment on above:Performed By: #### MG #### [facility] ([place] [address] [place] [address] VIRALT [Catalytic activity/Vol]16 U/LNormal<=40ProChristus Saint Michael HospitalComment on above:Performed By: #### MG #### [facility] ([address] [address] VIRAnion gap [Moles/Vol]9 mmol/LNormal5-15ProChristus Saint Michael HospitalComment on above:Performed By: #### MG #### [facility] ([address] [place] [address] VIRAST [Catalytic activity/Vol]16 U/LNormal<=41ProChristus Saint Michael HospitalComment on above:Performed By: #### MG #### [facility] ([address] [address] VIRBilirubin [Mass/Vol]0.6 mg/dLNormal0.3-1.2PZanesville City HospitalComment on above:Performed By: #### MG #### [facility] ([address] [address] VIRCalcium [Mass/Vol]8.5 mg/dLNormal8.5-10.5PZanesville City HospitalComment on above:Performed By: #### MG #### [facility] ([place] [address] [address] VIRChloride [Moles/Vol]104 mmol/PHlohuw66-858YzkNtuqzk Springfield HospitalComment on above:Performed By: #### MG #### [facility] ([address] [address] VIRCO2 [Moles/Vol]24 mmol/KDyqjwi32-33IgsXrdwng [facility] HospitalComment on above:Performed By: #### MG #### [facility] ([address] [address] VIRCreatinine [Mass/Vol]0.97 mg/dLNormal0.70-1.20ProChristus Saint Michael HospitalComment on above:Result Comment: METHOD TRACEABLE TO IDMS STANDARDPerformed By: #### MG #### [facility] ([address] [address] VIRGFR/1.73 sq M.predicted among non-blacks MDRD (S/P/Bld) [Vol rate/Area]85 mL/min/{1.73_m2}Normal>=60ProChristus Saint Michael HospitalComment on above:Result Comment: eGFR not reported due to non-numeric value for Creatinine. Reported eGFR is based on the CKD-EPI 2020 equation that does not use a race coefficient.Performed By: #### MG #### [facility] ([address] [address] VIRGlucose [Mass/Vol]95 mg/zRXskzfq10-76YqsFsjvcmChristus Saint Michael HospitalComment on above:Performed By: #### MG #### [facility] ([address] [address] VIRPotassium [Moles/Vol]4.1 mmol/LNormal3.5-5.0[facility] HospitalComment on above:Performed By: #### MG #### [facility] ([address] [address] VIRProtein [Mass/Vol]6.8 g/dLNormal6.0-8.0[facility] HospitalComment on above:Performed By: #### MG #### [facility] ([facility]) [address] [place] [address] VIRSodium [Moles/Vol]137 mmol/DYcrjsd958-635PdrReurzc [facility] HospitalComment on above:Performed By: #### MG #### [facility] ([facility]) [address] [place] [address] [place] [address] VIRUrea nitrogen [Mass/Vol]16 mg/dLNormal5-27ProChristus Saint Michael HospitalComment on above:Performed By: #### MG #### [facility] ([address] [place] [address] VIRComprehensive metabolic panelon 29-09-4034Jpfrwxz [Mass/Vol]3.3 g/dL3.2 - 5.3 g/dLProHelen Keller Hospital Health SystemALP [Catalytic activity/Vol]111 U/L39 - 130 U/[facility] Health SystemALT No additional P-5'-P [Catalytic activity/Vol]16 U/LNINF - 40 U/LProMedica Health SystemAnion gap [Moles/Vol]9 mmol/L5 - 15 mmol/LProMedica Health SystemAST [Catalytic activity/Vol]16 U/LNINF - 41 U/LProMedica Health SystemBilirubin [Mass/Vol]0.6 mg/dL0.3 - 1.2 mg/dLProHelen Keller Hospital Health SystemCalcium [Mass/Vol]8.5 mg/dL8.5 - 10.5 mg/dLProHelen Keller Hospital Health SystemChloride [Moles/Vol]104 mmol/L98 - 109 mmol/L [facility] Health SystemCO2 [Moles/Vol]24 mmol/L22 - 32 mmol/LProMedica Health SystemCreatinine [Mass/Vol]0.97 mg/dL0.70 - 1.20 mg/dLBrown Memorial Hospital System Comment on above:METHOD TRACEABLE TO IDMS STANDARDEGFR Non-Race Uhqxbhrqp56- [facility] Community HospitalComment on above:eGFR not reported due to non-numeric value for Creatinine. Reported eGFR is based on the CKD-EPI 202 equation that does not use a race coefficient. Glucose [Mass/Vol]95 mg/dL65 - 99 mg/dLBrown Memorial Hospital SystemPotassium [Moles/Vol]4.1 mmol/L3.5 - 5.0 mmol/LProMedgrove hill memorial hospital Health SystemProtein [Mass/Vol] 6.8 g/dL6.0 - 8.0 g/dLBrown Memorial Hospital SystemSodium [Moles/Vol]137 mmol/L134 - 146 mmol/LProMedica Health SystemUrea nitrogen [Mass/Vol]16 mg/dL5 - 27 mg/dL [facility] Memorial HospitalMAGNESIUMon [id number] [Mass/Vol]2.3 mg/dLNormal 1.8-2.6[facility] HospitalComment on above:Performed By: #### MG #### [facility] ([address] [address] VIRMagnesiumon 69-26-2254Phnaqylwc [Mass/Vol]2.3 mg/dL1.8 - 2.6 mg/dLGreene Memorial HospitalNo Panel Informationon 93-56-0526Ibesavmonqdgmh and review of laboratory resultsNormalSelect Specialty Hospital [facility] [place] UPMCCBC WITH AUTO DIFFERENTIALon [id number] ABSOLUTE COUNT BY AUTOMATED COUNT0.1 X10^9/LNormal0.0-0.2PZanesville City HospitalComment on above:Performed By: #### MG #### [address] [address] VIRBASOPHILS RELATIVE PERCENT BY AUTOMATED COUNT0.9 %Normal [facility] HospitalComment on above:Performed By: #### MG #### [facility] ([address] [address] VIRCELLAVISION DIFFERENTIAL TYPEAUTOMATED DIFFERENTIALNoal [facility] HospitalComment on above:Performed By: #### MG #### [facility] ([address] [address] VIREosinophils (Bld) [#/Vol]0.3 10*3/uLNormal0.0-0.4[facility] HospitalComment on above:Performed By: #### MG #### [facility] ([address] [place] [address] VIREOSINOPHILS RELATIVE PERCENT BY AUTOMATED COUNT5.0 %Normal [facility] HospitalComment on above:Performed By: #### MG #### [facility] ([address] [place] [address] VIRErythrocyte distribution width (RBC) [Ratio]13.3 %Normal 11.5-15[facility] HospitalComment on above:Performed By: #### MG #### [facility] ([address] [place] [address] VIRHematocrit (Bld) [Volume fraction]34.5 %Atd71-16XwtDpmkfwChristus Saint Michael HospitalComment on above:Performed By: #### MG #### [facility] ([address] [place] [address] VIRHemoglobin (Bld) [Mass/Vol]11.5 g/rXEkm42-05QgcXmzkfqHocking Valley Community HospitalComment on above:Performed By: #### MG #### [facility] ([address] [place] [address] VIRLymphocytes (Bld) [#/Vol]1.7 10*3/uLNormal1.0-3.5PZanesville City HospitalComment on above:Performed By: #### MG #### [facility] ([address] [place] [address] VIRLYMPHOCYTES RELATIVE PERCENT BY AUTOMATED COUNT28.5 %Normal [facility] HospitalComment on above:Performed By: #### MG #### [facility] ([address] [place] [address] VIRMCH (RBC) [Entitic mass]31.7 cdRroqql71-00IdlFimplvHocking Valley Community HospitalComment on above:Performed By: #### MG #### [facility] ([address] [place] [address] VIRMCHC (RBC) [Mass/Vol]33.4 g/xPXcryxt08-96CpmJcwkwvChristus Saint Michael HospitalComment on above:Performed By: #### MG #### [facility] ([facility]) [address] [place] [address]. [place] [address] VIRMCV (RBC) [Entitic vol]95 aAFlahij75-590ZtvOaakuw [facility] HospitalComment on above:Performed By: #### MG #### [facility] ([address] [place] [address] VIRMonocytes (Bld) [#/Vol]0.5 10*3/uLNormal0.0-0.9ProChristus Saint Michael HospitalComment on above:Performed By: #### MG #### [facility] ([address] [place] [address] VIRMONOCYTES RELATIVE PERCENT BY AUTOMATED COUNT8.9 %Normal [facility] HospitalComment on above:Performed By: #### MG #### [facility] ([address] [place] [address] VIRNEUTROPHILS ABSOLUTE COUNT BY AUTOMATED COUNT3.4 X10^9/L Normal1.5-6.6[facility] HospitalComment on above:Performed By: #### MG #### [facility] ([address] [place] [address] VIRNEUTROPHILS RELATIVE PERCENT BY AUTOMATED COUNT56.7 %Normal [facility] HospitalComment on above:Performed By: #### MG #### [facility] ([address] [place] [address] VIRPlatelet mean volume (Bld) [Entitic vol]7.6 fLNormal7-12 [facility] HospitalComment on above:Performed By: #### MG #### [facility] ([facility]) [address] [place] [address] [place] [address] VIRPlatelets (Bld) [#/Vol]223 10*3/mAIymxwo813-365LqrKjabwb [facility] HospitalComment on above:Performed By: #### MG #### [facility] ([facility]) [address] [place] [address] [place] [address] VIRRBC COUNT3.63 X10^12/LLow4.1-5.7[facility] Comment on above:Performed By: #### MG #### [facility] ([address] [place] [address] VIRWBC (Bld) [#/Vol]6.0 10*3/uLNormal4-11ProChristus Saint Michael HospitalComment on above:Performed By: #### MG #### [facility] ([address] [place] [address] VIRCBC auto differentialon [id number] (Bld) [#/Vol] 0.1 10*3/uLGreene Memorial HospitalBasophils/100 WBC (Bld)0.9 %[facility] HospitalDifferential cell count method Nom (Bld)AUTOMATED DIFFERENTIALGreene Memorial HospitalEosinophils (Bld) [#/Vol]0.3 10*3/uLGreene Memorial Hospital Eosinophils/100 WBC (Bld)5.0 %[facility] Memorial HospitalErythrocyte distribution width (RBC) [Ratio]13.3 %11.5 - 15 %[facility] Memorial HospitalHematocrit (Bld) [Volume fraction]34.5 %Low39 - 50 %[facility] Memorial HospitalHemoglobin (Bld) [Mass/Vol]11.5 g/dLLow13 - 17 g/dLGreene Memorial HospitalInterpretation and review of laboratory resultsAbnoUNC Health ChathamLymphocytes (Bld) [#/Vol]1.7 10*3/uLGreene Memorial HospitalLymphocytes/100 WBC (Bld)28.5 % [facility] HospitalH (RBC) [Entitic mass]31.7 pg27 - 34 pgPClinton Memorial HospitalMCHC (RBC) [Mass/Vol]33.4 g/dL32 - 36 g/dLGreene Memorial HospitalMCV (RBC) [Entitic vol]95 fL80 - 100 [facility] SystemMonocytes (Bld) [#/Vol]0.5 10*3/uLGreene Memorial HospitalMonocytes/100 WBC (Bld)8.9 %[facility] Memorial HospitalNeutrophils (Bld) [#/Vol]3.4 10*3/uLGreene Memorial HospitalNeutrophils/100 WBC (Bld)56.7 %[facility] Memorial HospitalPlatelet mean volume (Bld) [Entitic vol] 7.6 fL7 - 12 [facility] SystemPlatelets (Bld) [#/Vol]223 10*3/uL [facility] HospitalRBC (Bld) [#/Vol]3.63 10*6/uLLowGreene Memorial Hospital WBC LM Ql (Sput)6.0[facility] UPMCCOMPREHENSIVE METABOLIC PANELon [id number] [Mass/Vol]3.2 g/dLNormal3.2-5.3PZanesville City HospitalComment on above:Performed By: #### MG #### [facility] ([address] [address] VIRALP [Catalytic activity/Vol]107 U/NJeaayc23-132JtdWvpkonChristus Saint Michael HospitalComment on above:Performed By: #### MG #### [facility] ([address] [address] VIRALT [Catalytic activity/Vol]17 U/LNormal<=40ProChristus Saint Michael HospitalComment on above:Performed By: #### MG #### [facility] ([address] [place] [address] VIRAnion gap [Moles/Vol]11 mmol/LNormal5-15ProChristus Saint Michael HospitalComment on above:Performed By: #### MG #### [address] [place] [address] VIRAST [Catalytic activity/Vol]16 U/LNormal<=41ProChristus Saint Michael HospitalComment on above:Performed By: #### MG #### [facility] ([address] [place] [address] VIRBilirubin [Mass/Vol]0.4 mg/dLNormal0.3-1.2PZanesville City HospitalComment on above:Performed By: #### MG #### [address] [place] [address] VIRCalcium [Mass/Vol]8.4 mg/dLLow8.5-10.5PZanesville City HospitalComment on above:Performed By: #### MG #### [address] [place] [address] VIRChloride [Moles/Vol]111 mmol/ZWpxk29-587IlaNncozlChristus Saint Michael HospitalComment on above:Performed By: #### MG #### [address] [place] [address] VIRCO2 [Moles/Vol]20 mmol/ZHfo25-96CvjKmyslwZanesville City Hospital Comment on above:Performed By: #### MG #### [facility] ([address] [place] [address] VIRCreatinine [Mass/Vol]0.97 mg/dLNormal0.70-1.20ProChristus Saint Michael HospitalComment on above:Result Comment: METHOD TRACEABLE TO IDMS STANDARDPerformed By: #### MG #### [facility] ([address] [place] [address] VIRGFR/1.73 sq M.predicted among non-blacks MDRD (S/P/Bld) [Vol rate/Area]85 mL/min/{1.73_m2}Normal>=60ProChristus Saint Michael HospitalComment on above:Result Comment: eGFR not reported due to non-numeric value for Creatinine. Reported eGFR is based on the CKD-EPI 2020 equation that does not use a race coefficient.Performed By: #### MG #### [facility] ([address] [place] [address] VIRGlucose [Mass/Vol]94 mg/zHMplues43-14ZeiNncsvyChristus Saint Michael HospitalComment on above:Performed By: #### MG #### [facility] ([address] [place] [address] VIRPotassium [Moles/Vol]3.8 mmol/LNormal3.5-5.0ProChristus Saint Michael HospitalComment on above:Performed By: #### MG #### [facility] ([address] [place] [address] VIRProtein [Mass/Vol]6.5 g/dLNormal6.0-8.0ProChristus Saint Michael HospitalComment on above:Performed By: #### MG #### [facility] ([address] [place] [address] VIRSodium [Moles/Vol]142 mmol/EYnabhg108-178BlpTkstrx [facility] HospitalComment on above:Performed By: #### MG #### [facility] ([address] [place] [address] VIRUrea nitrogen [Mass/Vol]20 mg/dLNormal5-27ProChristus Saint Michael HospitalComment on above:Performed By: #### MG #### [facility] ([address] [place] [address] VIRComprehensive metabolic panelon [id number] [Mass/Vol]3.2 g/dL3.2 - 5.3 g/dLProHelen Keller Hospital Health SystemALP [Catalytic activity/Vol]107 U/L39 - 130 U/[facility] Health SystemALT No additional P-5'-P [Catalytic activity/Vol]17 U/LNINF - 40 U/LPrCentennial Peaks Hospital Health SystemAnion gap [Moles/Vol]11 mmol/L5 - 15 mmol/LProMedica Health SystemAST [Catalytic activity/Vol]16 U/LNINF - 41 U/[facility] Health SystemBilirubin [Mass/Vol]0.4 mg/dL0.3 - 1.2 mg/dLProUniversity [facility] SystemCalcium [Mass/Vol]8.4 mg/dLLow8.5 - 10.5 mg/dLProUniversity [facility]als [facility] SystemChloride [Moles/Vol]111 mmol/LHigh98 - 109 mmol/[facility] SystemCO2 [Moles/Vol]20 mmol/LLow22 - 32 mmol/[facility] SystemCreatinine [Mass/Vol]0.97 mg/dL0.70 - 1.20 mg/dLGreene Memorial HospitalComment on above:METHOD TRACEABLE TO IDMS STANDARDEGFR Non-Race Dependent 85- PINEastern Missouri State HospitalComment on above:eGFR not reported due to non- numeric value for Creatinine. Reported eGFR is based on the CKD-EPI 2020 equation that does not use a race coefficient. Glucose [Mass/Vol]94 mg/dL65 - 99 mg/dLBrown Memorial Hospital SystemPotassium [Moles/Vol]3.8 mmol/L3.5 - 5.0 mmol/[facility] Health SystemProtein [Mass/Vol] 6.5 g/dL6.0 - 8.0 g/dLBrown Memorial Hospital SystemSodium [Moles/Vol]142 mmol/L134 - 146 mmol/[facility] SystemUrea nitrogen [Mass/Vol]20 mg/dL5 - 27 mg/dL [facility] HospitalMAGNESIUMon 32-61-1590Sejdjvsus [Mass/Vol]1.6 mg/dLLow 1.8-2.6H[facility] Community HospitalComment on above:Performed By: #### MG #### [facility] ([address] [address] VIRMagnesiumon 89-17-3433Tencajtgq [Mass/Vol]1.6 mg/dLLow1.8 - 2.6 mg/dLGreene Memorial HospitalNo Panel Informationon 60-77-8361Cvddvuucxctslz and review of laboratory resultsAbnoLECOM Health - Corry Memorial HospitalCB WITH AUTO DIFFERENTIALon 53-46-6000JDKZKSUFS ABSOLUTE COUNT (10*3/UL) BY AUTOMATED COUNT0.0 10*3/uLNormal0.0-0.2PZanesville City HospitalComment on above:Performed By: #### CBCA ####[facility] ([address] [id number] VIRBASOPHILS RELATIVE PERCENT BY AUTOMATED COUNT 0.7 %[facility]orrow County HospitalComment on above:Performed By: #### CBCA ####[facility] ([address] [id number] VIRCELLAVISION DIFFERENTIAL TYPEAUTOMATED DIFFERENTIALNoUniversity Hospitals Conneaut Medical CenterComment on above:Performed By: #### CBCA ####[facility] ([address] CN[address] VIREosinophils (Bld) [#/Vol] 0.3 10*3/uLNormal0.0-0.4H[facility] HospitalComment on above:Performed By: #### CBCA ####[facility] ([address], [place] VIREOSINOPHILS RELATIVE PERCENT BY AUTOMATED COUNT4.3 % NormalHocking Valley Community HospitalComment on above:Performed By: #### CBCA ####[facility] ([address] BR[address] VIRErythrocyte distribution width (RBC) [Ratio]13.6 %Iwoeof71.5-15H[facility] HospitalComment on above:Performed By: #### CBCA ####[facility] ([address], [place] VIRHematocrit (Bld) [Volume fraction]33.7 %Cxj93-66BpsNnueukHocking Valley Community HospitalComment on above: Performed By: #### CBCA ####[facility] ([address], [address] VIRHemoglobin (Bld) [Mass/Vol]11.2 g/dATvs07-94 [facility] HospitalComment on above:Performed By: #### CBCA ####[facility] ([address], [id number] VIR LYMPHOCYTES ABSOLUTE COUNT (10*3/UL) BY AUTOMATED COUNT1.5 10*3/uLNormal1.0-3.5 [facility] HospitalComment on above:Performed By: #### CBCA ####[facility] ([address], [address] VIR LYMPHOCYTES RELATIVE PERCENT BY AUTOMATED COUNT20.8 %NormalProChristus Saint Michael HospitalComment on above:Performed By: #### CBCA ####[facility] ([address], [place] VIRMCH (RBC) [Entitic mass] 31.5 bgLvumrx29-01BiuZqjloyChristus Saint Michael HospitalComment on above:Performed By: #### CBCA ####[facility] ([address] [place] [address] VIRMCHC (RBC) [Mass/Vol]33.2 g/zCMlhipm96-03YjpVjlfxeKnox Community Hospital on above:Performed By: #### CBCA ####[facility] ([address], [place] VIRMCV (RBC) [Entitic vol]95 fLNormal 80-100ProChristus Saint Michael HospitalComment on above:Performed By: #### CBCA ####[facility] ([address], [place] VIRMONOCYTES ABSOLUTE COUNT (10*3/UL) BY AUTOMATED COUNT0.6 10*3/uLNormal0.0-0.9 [facility] HospitalComment on above:Performed By: #### CBCA ####[facility] ([address], [place] VIRMONOCYTES RELATIVE PERCENT BY AUTOMATED COUNT7.8 %NormalHocking Valley Community HospitalComment on above:Performed By: #### CBCA ####[address], [address] VIRNEUTROPHILS ABSOLUTE COUNT BY AUTOMATED COUNT4.8 10*3/uLNormal1.5-6.6H[facility] HospitalComment on above:Performed By: #### CBCA ####[facility] ([address], [place] VIRNEUTROPHILS RELATIVE PERCENT BY AUTOMATED COUNT66.4 %NormalHocking Valley Community HospitalComment on above:Performed By: #### CBCA ####[facility] ([address] [place] [address] VIRPlatelet mean volume (Bld) [Entitic vol]8.1 fLNormal7-12[facility] Medical CenterComment on above:Performed By: #### CBCA ####[facility] ([address], [id number] VIRPlatelets (Bld) [#/Vol]231 10*3/fYLnzgzi309-042BfyGllyrv [facility] HospitalComment on above: Performed By: #### CBCA ####[facility] ([address], [place] VIRRBC COUNT3.55 X10E12/LLow4.1-5.7H[facility] HospitalComment on above:Performed By: #### CBCA ####[facility] ([facility])[address] [place] [address] [address], [place] VIRWBC (Bld) [#/Vol]7.2 10*3/uLNormal4-11ProChristus Saint Michael HospitalComment on above:Performed By: #### CBCA ####[facility] ([facility])[address] [place] [address] [place] [address] VIRCBC auto differentialon 35-45-8127Sievcqnal (Bld) [#/Vol]0.0 10*3/uL0.0 - 0.2 10*3/uLGreene Memorial HospitalBasophils/100 WBC (Bld)0.7 %[facility] HospitalDifferential cell count method Nom (Bld)AUTOMATED DIFFERENTIAL [facility] HospitalEosinophils (Bld) [#/Vol]0.3 10*3/uL0.0 - 0.4 10*3/uL [facility] HospitalEosinophils/100 WBC (Bld)4.3 %[facility] Erythrocyte distribution width (RBC) [Ratio]13.6 %11.5 - 15 %[facility] Memorial HospitalHematocrit (Bld) [Volume fraction]33.7 %Low39 - 50 %[facility] Memorial HospitalHemoglobin (Bld) [Mass/Vol]11.2 g/dLLow13 - 17 g/dLGreene Memorial Hospital Interpretation and review of laboratory resultsAbnoUNC Health Chatham Lymphocytes (Bld) [#/Vol]1.5 10*3/uL1.0 - 3.5 10*3/uLGreene Memorial Hospital Lymphocytes/100 WBC (Bld)20.8 %[facility] HospitalMCH (RBC) [Entitic mass] 31.5 pg27 - 34 [facility] HospitalMCHC (RBC) [Mass/Vol]33.2 g/dL32 - 36 g/dLGreene Memorial HospitalMCV (RBC) [Entitic vol]95 fL80 - 100 [facility] SystemMonocytes (Bld) [#/Vol]0.6 10*3/uL0.0 - 0.9 10*3/uLProUniversity Hospitals Elyria Medical Center SystemMonocytes/100 WBC (Bld)7.8 %[facility] SystemNeutrophils (Bld) [#/Vol]4.8 10*3/uL1.5 - 6.6 10*3/uLProUniversity Hospitals Ely[facility] Medical Center SystemNeutrophils/100 WBC (Bld)66.4 %[facility] SystemPlatelet mean volume (Bld) [Entitic vol]8.1 fL 7 - 12 [facility] SystemPlatelets (Bld) [#/Vol]231 10*3/uLBrown Memorial Hospital SystemRBC (Bld) [#/Vol]3.55 10*6/uLLowGreene Memorial HospitalWBC LM Ql (Sput)7.2PLankenau Medical CenterCOMPREHENSIVE METABOLIC PANELon 05-42-2750Xzxyzya [Mass/Vol]3.0 g/dLLow3.2-5.3PZanesville City Hospital Comment on above:Performed By: #### MG #### [facility] ([address] [address] VIRALP [Catalytic activity/Vol]112 U/BWmswgw32-425LusHfzwvgChristus Saint Michael HospitalComment on above:Performed By: #### MG #### [facility] ([address] [address] VIRALT [Catalytic activity/Vol]15 U/LNormal<=40ProChristus Saint Michael HospitalComment on above:Performed By: #### MG #### [facility] ([address] [address] VIRAnion gap [Moles/Vol]10 mmol/LNormal5-15ProChristus Saint Michael HospitalComment on above:Performed By: #### MG #### [facility] ([address] [address] VIRAST [Catalytic activity/Vol]15 U/LNormal<=41ProChristus Saint Michael HospitalComment on above:Performed By: #### MG #### [facility] ([address] [place] [address] VIRBilirubin [Mass/Vol]0.6 mg/dLNormal0.3-1.2PZanesville City HospitalComment on above:Performed By: #### MG #### [facility] ([address] [place] [address] VIRCalcium [Mass/Vol]8.1 mg/dLLow8.5-10.5PZanesville City HospitalComment on above:Performed By: #### MG #### [facility] ([address] [place] [address] VIRChloride [Moles/Vol]111 mmol/ZLfmx29-754MufVnrnqtChristus Saint Michael HospitalComment on above:Performed By: #### MG #### [facility] ([address] [place] [address] VIRCO2 [Moles/Vol]22 mmol/QWhcjdl14-28MjcXapdhsZanesville City HospitalComment on above:Performed By: #### MG #### [facility] ([address] [place] [address] VIRCreatinine [Mass/Vol]1.27 mg/dLHigh0.70-1.20ProChristus Saint Michael HospitalComment on above:Result Comment: METHOD TRACEABLE TO IDMS STANDARDPerformed By: #### MG #### [facility] ([address] [place] [address] VIRGFR/1.73 sq M.predicted among non-blacks MDRD (S/P/Bld) [Vol rate/Area]62 mL/min/{1.73_m2}Normal>=60ProChristus Saint Michael HospitalComment on above:Result Comment: eGFR not reported due to non-numeric value for Creatinine. Reported eGFR is based on the CKD-EPI 2021 equation that does not use a race coefficient.Performed By: #### MG #### [facility] ([address] [address] VIRGlucose [Mass/Vol]83 mg/qSVzvoqp26-44TnvAyidvfChristus Saint Michael HospitalComment on above:Performed By: #### MG #### [facility] ([address] [address] VIRPotassium [Moles/Vol]3.4 mmol/LLow3.5-5.0H[facility] HospitalComment on above:Performed By: #### MG #### [facility] ([address] [address] VIRProtein [Mass/Vol]6.3 g/dLNormal6.0-8.0ProChristus Saint Michael HospitalComment on above:Performed By: #### MG #### [facility] ([address] [address] VIRSodium [Moles/Vol]143 mmol/HGfdswy086-692XohNaszrn [facility]ont HospitalComment on above:Performed By: #### MG #### [facility] ([address] [address] VIRUrea nitrogen [Mass/Vol]26 mg/dLNormal5-27ProChristus Saint Michael HospitalComment on above:Performed By: #### MG #### [facility] ([address] [address] VIRComprehensive metabolic panelon 72-54-4886Tdrgejz [Mass/Vol]3.0 g/dLLow3.2 - 5.3 g/dLProUniversity Hospitals [facility] SystemALP [Catalytic activity/Vol]112 U/L39 - 130 U/LProMedica Health SystemALT No additional P-5'-P [Catalytic activity/Vol]15 U/LNINF - 40 U/LProMedica Health SystemAnion gap [Moles/Vol]10 mmol/L5 - 15 mmol/LProMedica Health SystemAST [Catalytic activity/Vol]15 U/LNINF - 41 U/LProMedica Health SystemBilirubin [Mass/Vol]0.6 mg/dL0.3 - 1.2 mg/dLProUniversity Hospitals [facility] Medical Center SystemCalcium [Mass/Vol]8.1 mg/dLLow8.5 - 10.5 mg/dLProUniversity Hospitals [facility] Medical Center SystemChloride [Moles/Vol]111 mmol/LHigh98 - 109 mmol/LProMedica Health SystemCO2 [Moles/Vol]22 mmol/L22 - 32 mmol/LProMedica Health SystemCreatinine [Mass/Vol]1.27 mg/dLHigh0.70 - 1.20 mg/dLBrown Memorial Hospital SystemComment on above:METHOD TRACEABLE TO IDMS STANDARDEGFR Non-Race Alvrijuhn36- Wythe County Community HospitalComment on above:eGFR not reported due to non-numeric value for Creatinine. Reported eGFR is based on the CKD-EPI 2020 equation that does not use a race coefficient. Glucose [Mass/Vol]83 mg/dL65 - 99 mg/dLBrown Memorial Hospital SystemInterpretation and review of laboratory resultsAbnormalProUniversity Hospitals [facility] Center SystemPotassium [Moles/Vol]3.4 mmol/LLow3.5 - 5.0 mmol/LProMedica Health SystemProtein [Mass/Vol]6.3 g/dL6.0 - 8.0 g/dLProUniversity Hospitals [facility] SystemSodium [Moles/Vol]143 mmol/L134 - 146 mmol/LProMedica Health SystemUrea nitrogen [Mass/Vol]26 mg/dL5 - 27 mg/dLBrown Memorial Hospital SystemEGDon 72-54-2057ArgqbbgIrwin Ge DO - 01/06/2025 [facility] Patient Name: Amol Taylor Procedure Date No Time: 01/06/2025 CSN : [id number] Date of : 1955 Admit Type: Outpatient Age: 69 Room: [place] [address] Gender: Male Note Status: Finalized Attending MD: Irwin Ge DO, Procedure: Upper GI endoscopy Indications: Nausea with vomiting Providers: Irwin Ge DO Medicines: Propofol per Anesthesia Complications: No immediate complications. Procedure: After obtaining informed consent, the endoscope was passed under direct vision. Throughout the procedure, the patient's blood pressure, pulse, and oxygen saturations were monitored continuously. The OLYMPUS [id number] #[id number] ADULT GASTROSCOPE was introduced through the mouth, and advanced to the fourth part of duodenum. The upper GI endoscopy was accomplished without difficulty. The patient tolerated the procedure well. Findings: The nasopharynx and oropharynx were normal. LA Grade A (one or more mucosal breaks less than 5 mm, not extending between tops of 2 mucosal folds) esophagitis with no bleeding was found 40 cm from the incisors. Biopsies were taken with a cold forceps for histology. Localized mild inflammation characterized by congestion (edema), erythema and granularity was found in the gastric fundus. Biopsies were taken with a cold forceps for histology. The examined duodenum was normal. Estimated Blood Loss: Estimated blood loss was minimal. Impression: - Normal nasopharynx and oropharynx. - LA Grade A reflux esophagitis with no bleeding. Rule out Blanco's esophagus. Biopsied. - Gastritis, characterized by congestion (edema), erythema and granularity. Biopsied. - Normal examined duodenum. Recommendation: - Await pathology results. - [facility] patient to [facility] care. - Advance diet as tolerated today. Procedure Code(s): --- Professional --- 58274, Esophagogastroduodenoscopy, flexible, transoral; with biopsy, single or multiple Diagnosis Code(s): --- Professional --- K21.00, Gastro-esophageal reflux disease with esophagitis, without bleeding K29.70, Gastritis, unspecified, without bleeding R11.2, Nausea with vomiting, unspecified CPT copyright 2022 [employer]. All rights reserved. The codes documented in this report are preliminary and upon pediatric critical care nurse review may be revised to meet current compliance requirements. DO Irwin Carcamo DO 01/06/2025 8:26:43 AM Number of Addenda: 0 Note Initiated On: 01/06/2025 7:26 AM [facility] UPMCEGD Study observationon 01-06-2025 This order has been auto-finalized for image and report archival in PACs. *For full report details, please reach out to your physician. This image is visible to you in MyChart.*[facility] SystemMAGNESIUMon 01-06-2025 Magnesium [Mass/Vol]2.1 mg/dLNormal1.8-2.6H[facility] HospitalComment on above:Performed By: #### MG ####[facility] ([address] [place] [address] VIRMagnesiumon 42-23-2265Ittouvzxxkldtl and review of laboratory resultsNormalBrown Memorial Hospital SystemMagnesium [Mass/Vol]2.1 mg/dL1.8 - 2.6 mg/dLBrown Memorial Hospital SystemNo Panel Informationon 01-06-2025 [facility] SystemPOTASSIUMon 14-00-8601Qqehhsxoq [Moles/Vol]3.8 mmol/L Normal3.5-5.0H[facility] HospitalComment on above:Performed By: #### MG #### [facility] ([address] [address] VIRPotassiumon 13-51-5401Fmoewtxscmnbhp and review of laboratory resultsNormalAdena Health System Health SystemPotassium [Moles/Vol]3.8 mmol/L 3.5 - 5.0 mmol/LProMedica Bellevue Hospital SystemBrown Memorial Hospital SystemURINALYSISon 68-34-4572Dxhawyrhd Ql (U)NegativeNormalNegativeHocking Valley [facility] Comment on above:Performed By: #### UA ####[facility] ([address] [address] VIRBLOOD/HGBSmallAbnormalNegative [facility] HospitalComment on above:Performed By: #### UA ####[facility] ([address] [address] VIRColor (U) YellowNormalYellowHocking Valley Community HospitalComment on above:Performed By: #### UA ####[facility] ([address] [place] [address] VIRGlucose Ql (U)NegativeNormalNegative, 250 mg/dLProChristus Saint Michael HospitalComment on above:Performed By: #### UA ####[facility] ([address] [address] VIRKetones Ql (U)Negative NormalNegativeHocking Valley Community HospitalComment on above:Performed By: #### UA ####[facility] ([address] [address] VIRLeukocyte esterase Test strip Ql (U)SmallAbnormalNegativeHocking Valley Community HospitalComment on above:Performed By: #### UA ####[facility] ([address] [address] VIRNitrite Ql (U) PositiveAbnormalNegativeHocking Valley Community HospitalComment on above:Performed By: #### UA ####[facility] ([address] [address] VIRPH,URINE6.7Wqciqa9.0-8.5POhio Valley Surgical Hospital on above:Performed By: #### UA ####[facility] ([address] [address] VIRProtein Ql (U)TraceAbnormalNegative [facility] HospitalComment on above:Performed By: #### UA ####[facility] ([address] [address] VIRR.B.CELLS 5Tlqmnq3-4RczEhbfnfZanesville City HospitalComment on above:Performed By: #### UA ####[facility] ([address] [address] VIRSpecific gravity (U) [Rel density]1.866Lqvmgu1.003-1.035ProChristus Saint Michael HospitalComment on above:Performed By: #### UA ####[facility] ([facility])[address] [place] [address] [place] [address] VIRSQUAMOUS KVRJKAHGIO2Nbtixy 0-5PZanesville City HospitalComment on above:Performed By: #### UA ####[facility] ([facility])[address] [place] [address] [address], [place] [address] VIRTURBIDITYClearNormalClearProChristus Saint Michael HospitalComment on above: Performed By: #### UA ####[facility] ([facility])[address] [place] [address] [place] [address] VIRUROBILINOGEN0.2 eu/dLNormal0.2 eu/dL, 1.0 eu/dL [facility] HospitalComsouthwest regional rehabilitation center on above:Performed By: #### UA ####[facility] ([address] [place] [address] VIRW.B.CELLS 41Ajtu5-1WlvPgqbzuZanesville City HospitalComment on above:Performed By: #### UA ####[facility] ([address] [address] VIRUrinalysisOrdered By: Evonne Thompson on 56-15-7984Dikcdeeid Ql (U) NegativeNegativeCity Hospitalca Health SystemColor (U)YellowYellowGreene Memorial HospitalEpithelial cells Auto (Urine sed) [#/Area]20 - 5PClinton Memorial Hospital Glucose (U) [Mass/Vol]NegativeNegative, 250 mg/dLBrown Memorial Hospital System Hemoglobin Auto test strip Ql (U)SmallAbnormalNegativeBrown Memorial Hospital System Interpretation and review of laboratory resultsAbnormalBrown Memorial Hospital System Ketones (U) [Mass/Vol]NegativeNegativeBrown Memorial Hospital SystemLeukocyte esterase Auto test strip Ql (U)SmallAbnormalNegativeGreene Memorial HospitalNitrite Auto test strip Ql (U)PositiveAbnormalNegativeBrown Memorial Hospital SystempH (U)6.0 [pH] 5.0 - 8.5PMiami Valley Hospital SystemProtein (U) [Mass/Vol]TraceAbnormalNegative [facility] HospitalRBC Auto (Urine sed) [#/Area]30 - 5PLifeBrite Community Hospital of Stokespecific gravity Refractometry automated (U) [Rel density]1.0251.003 - 1.035Gre[facility] Memorial HospitalTurbidity Ql (U)ClearCleElyria Memorial Hospital Urobilinogen Qn (U)0.2347550 {Kole'U}/dL0.2 eu/dL, 1.0 eu/dLGreene Memorial HospitalWBC Auto (Urine sed) [#/Area]72Vjur4 - 5PLankenau Medical CenterBASIC METABOLIC PANELon 27-89-7819Blitt gap [Moles/Vol]11 mmol/L Normal5-15[facility] HospitalComment on above:Performed By: #### BMP ####[address] [address] VIRCalcium [Mass/Vol]8.2 mg/dLLow8.5-10.5PZanesville City HospitalComment on above:Performed By: #### BMP ####[address] [address] VIRChloride [Moles/Vol]110 mmol/QZqdg17-896 [facility] HospitalComment on above:Performed By: #### BMP ####[address] [address] VIRCO2 [Moles/Vol]21 mmol/NXdw71-81FqgLnfqseZanesville City HospitalComment on above:Performed By: #### BMP ####[facility] ([address] [address] VIRCreatinine [Mass/Vol]2.16 mg/dLHigh0.70-1.20[facility] HospitalComment on above:Result Comment: METHOD TRACEABLE TO IDMS STANDARDPerformed By: #### BMP ####[facility] ([address] [place] [address] VIRGFR/1.73 sq M.predicted among non-blacks MDRD (S/P/Bld) [Vol rate/Area]33 mL/min/{1.73_m2}Low>=60[facility] HospitalComment on above:Result Comment: eGFR not reported due to non-numeric value for Creatinine. Reported eGFR is based on the CKD-EPI 2020 equation that does not use a race coefficient.Performed By: #### BMP ####[facility] ([address] [address] VIRGlucose [Mass/Vol]101 mg/bWMpjj95-51TmpHmisgyChristus Saint Michael HospitalComment on above:Performed By: #### BMP ####[facility] ([address] [address] VIRPotassium [Moles/Vol]3.9 mmol/LNormal3.5-5.0[facility] Comment on above:Performed By: #### BMP ####[facility] ([address] [address] VIRSodium [Moles/Vol]142 mmol/LNormal 134-146H[facility] HospitalComment on above:Performed By: #### BMP ####[facility] ([address] [address] VIRUrea nitrogen [Mass/Vol]32 mg/dLWheeling Hospital5-27[facility] Comment on above:Performed By: #### BMP ####[facility] ([address] [address] VIRBasic Metabolic Panelon 01-05-2025 Anion gap [Moles/Vol]11 mmol/L5 - 15 mmol/LProMedica Health SystemCalcium [Mass/Vol]8.2 mg/dLLow8.5 - 10.5 mg/dLProUniversity Hospitals [facility] SystemChloride [Moles/Vol]110 mmol/LHigh98 - 109 mmol/LProMedica Health SystemCO2 [Moles/Vol]21 mmol/LLow22 - 32 mmol/[facility] CenterCreatinine [Mass/Vol]2.16 mg/dL High0.70 - 1.20 mg/dLGreene Memorial HospitalComment on above:METHOD TRACEABLE TO IDSC STANDARDEGFR Non-Race Iqrbzmtur04Ebr- PINEastern Missouri State HospitalComment on above:eGFR not reported due to non-numeric value for Creatinine. Reported eGFR is based on the CKD-EPI 2020 equation that does not use a race coefficient. Glucose [Mass/Vol]101 mg/iLWfcs58 - 99 mg/dLGreene Memorial Hospital Interpretation and review of laboratory resultsAbnormAvita Health System [facility] Potassium [Moles/Vol]3.9 mmol/L3.5 - 5.0 mmol/Randolph Healthodium [Moles/Vol]142 mmol/L134 - 146 mmol/[facility] Medical CenterUrea nitrogen [Mass/Vol]32 mg/dLHigh5 - 27 mg/dLSelect [facility]ty Hospital [facility] C DIFFICILE BY PCRon WFG6XicmymkqViiywnTdmxfhqkgxw Negative [facility] HospitalComment on above:Result Comment: Assay methodology is nucleic acid amplification by real-time PCR for detection of C. difficile toxin gene sequences performed on [employer] System.Performed By: #### CDFPCR ####[facility] ([facility])[address] [address] VIRTOXIGENIC C DIFFNegativeNormalNegativeHocking Valley Community HospitalComment on above:Performed By: #### CDFPCR ####[facility] ([facility])[address] [address] VIRC difficile by PCRon 01-05-2025. difficile toxin genes POLO+probe Ql (Stl)NegativePresumptive NegativeGreene Memorial HospitalComment on above:Assay methodology is nucleic acid amplification by real-time PCR for detection of C. difficile toxin gene sequences performed on [employer] Instrument System.E. coli enterotoxigenic ltA+st1a+st1b genes POLO+non-probe Ql (Stl)NegativeNegative [facility] HospitalInterpretation and review of laboratory resultsNormal [facility] UPMCCBC WITH AUTO DIFFERENTIALon [id number] ABSOLUTE COUNT (10*3/UL) BY AUTOMATED COUNT0.0 10*3/uLNormal 0.0-0.2PSurgical Specialty Centerica [facility]elope [facility] Medical CenterComment on above:Performed By: #### CBCA ####[facility] ([address], [place] VIRBASOPHILS RELATIVE PERCENT BY AUTOMATED COUNT0.3 %NormalHocking Valley Community HospitalComment on above:Performed By: #### CBCA ####[facility] ([address], [id number] VIRCELLAVISION DIFFERENTIAL TYPEAUTOMATED DIFFERENTIALNoalHocking Valley Community HospitalComment on above: Performed By: #### CBCA ####[facility] ([address]FR[facility], [id number] VIREosinophils (Bld) [#/Vol]0.3 10*3/uLNormal0.0-0.4 [facility]ing [facility] Community HospitalComment on above:Performed By: #### CBCA ####[facility] ([address], [id number] VIR EOSINOPHILS RELATIVE PERCENT BY AUTOMATED COUNT2.6 %NormalHocking Valley Community HospitalComment on above:Performed By: #### CBCA ####[facility] ([address], [id number] VIRErythrocyte distribution width (RBC) [Ratio]13.6 %Ctetky16.5-15H[facility]ing [facility] Community HospitalComment on above:Performed By: #### CBCA ####[address], [id number] VIRHematocrit (Bld) [Volume fraction]41.7 % Qnbyya38-99BzbXdudrjHocking Valley Community HospitalComment on above:Performed By: #### CBCA ####[facility] ([facility])[address] [place] [address] AVE.[facility], [id number] VIRHemoglobin (Bld) [Mass/Vol]13.8 g/aTUlebdo58-10GelUuxuthHocking [facility] Hospital Comment on above:Performed By: #### CBCA ####[facility] ([facility])[address] [place], [place] [address]T AVE.[facility], [id number] VIRLYMPHOCYTES ABSOLUTE COUNT (10*3/UL) BY AUTOMATED COUNT2.3 10*3/uLNormal1.0-3.5PZanesville City Hospital Comment on above:Performed By: #### CBCA ####[facility] ([address], [id number] VIRLYMPHOCYTES RELATIVE PERCENT BY AUTOMATED COUNT20.0 %NormalHocking Valley Community HospitalComment on above:Performed By: #### CBCA ####[facility] ([facility])[address] [place], [place] [address]T AVE.[facility], [id number] VIRMCH (RBC) [Entitic mass]31.8 fdUalfzz38-65TybPixtvaHocking Valley Community HospitalComment on above:Performed By: #### CBCA ####[facility] ([address], [id number] VIRMCHC (RBC) [Mass/Vol]33.2 g/wFIcvtgt85-87RtiBtwhttChristus Saint Michael HospitalComment on above: Performed By: #### CBCA ####[facility] ([facility])[address] [place], [place] [address]T AVE.[facility], [id number] VIRMCV (RBC) [Entitic vol]96 eNZvocnh61-239DvgRpawbpHocking Valley Community HospitalComment on above:Performed By: #### CBCA ####[facility] ([facility])[address] [place], [place] [address]T A[address].[facility], [id number] VIRMONOCYTES ABSOLUTE COUNT (10*3/UL) BY AUTOMATED COUNT1.1 10*3/uLHigh0.0-0.9Hocking Valley Community HospitalComment on above:Performed By: #### CBCA ####[facility] ([facility])[address] [place] [address] AVE.[place], [id number] VIRMONOCYTES RELATIVE PERCENT BY AUTOMATED COUNT9.4 %NormalHocking Valley Community HospitalComment on above: Performed By: #### CBCA ####[facility] ([facility])[address] [place], [place] [address]E.[place], [id number] VIRNEUTROPHILS ABSOLUTE COUNT BY AUTOMATED COUNT7.9 10*3/uLHigh1.5-6.6Hocking [facility] Community HospitalComment on above:Performed By: #### CBCA ####[facility] ([address] [place] [address] VIRNEUTROPHILS RELATIVE PERCENT BY AUTOMATED COUNT67.7 %NormalProChristus Saint Michael HospitalComment on above:Performed By: #### CBCA ####[facility] ([address] [id number] VIRPlatelet mean volume (Bld) [Entitic vol]7.8 fLNormal7-12ProMedFremont HospitalComment on above:Performed By: #### CBCA ####[facility] ([address], [id number] VIRPlatelets (Bld) [#/Vol]298 10*3/uLNormal 150-450ProChristus Saint Michael HospitalComment on above:Performed By: #### CBCA ####[facility] ([address] [id number] VIRRBC COUNT4.35 X10E12/LNormal4.1-5.7ProChristus Saint Michael HospitalComment on above:Performed By: #### CBCA ####[facility] ([address], [id number] VIRWBC (Bld) [#/Vol]11.7 10*3/uLHigh4-11 [facility] HospitalComment on above:Performed By: #### CBCA ####[facility] ([facility])[address].[place], [id number] VIRCBC auto differentialon [id number] (Bld) [#/Vol]0.0 10*3/uL0.0 - 0.2 10*3/uL [facility] HospitalBasophils/100 WBC (Bld)0.3 %[facility] Differential cell count method Nom (Bld)AUTOMATED DIFFERENTIALGreene Memorial HospitalEosinophils (Bld) [#/Vol]0.3 10*3/uL0.0 - 0.4 10*3/uLGreene Memorial HospitalEosinophils/100 WBC (Bld)2.6 %[facility] HospitalErythrocyte distribution width (RBC) [Ratio]13.6 %11.5 - 15 %[facility] Hematocrit (Bld) [Volume fraction]41.7 %39 - 50 %[facility] Hemoglobin (Bld) [Mass/Vol]13.8 g/dL13 - 17 g/dLGreene Memorial Hospital Interpretation and review of laboratory resultsAbnormalGreene Memorial Hospital Lymphocytes (Bld) [#/Vol]2.3 10*3/uL1.0 - 3.5 10*3/uLGreene Memorial Hospital Lymphocytes/100 WBC (Bld)20.0 %[facility] HospitalMCH (RBC) [Entitic mass] 31.8 pg27 - 34 [facility] HospitalMCHC (RBC) [Mass/Vol]33.2 g/dL32 - 36 g/dLGreene Memorial HospitalMCV (RBC) [Entitic vol]96 fL80 - 100 [facility] SystemMonocytes (Bld) [#/Vol]1.1 10*3/uLHigh0.0 - 0.9 10*3/uLGreene Memorial HospitalMonocytes/100 WBC (Bld)9.4 %[facility] HospitalNeutrophils (Bld) [#/Vol]7.9 10*3/uLHigh1.5 - 6.6 10*3/[facility] Neutrophils/100 WBC (Bld)67.7 %[facility] SystemPlatelet mean volume (Bld) [Entitic vol]7.8 fL7 - 12 [facility] SystemPlatelets (Bld) [#/Vol]298 10*3/uLBrown Memorial Hospital SystemRBC (Bld) [#/Vol]4.35 10*6/[facility] HospitalWBC LM Ql (Sput)11.7HPrime Healthcare Services COMPREHENSIVE METABOLIC PANELon [id number] [Mass/Vol]3.8 g/dLNormal 3.2-5.3PZanesville City HospitalComment on above:Performed By: #### CMP ####[facility] ([facility])[address], [place] [address] VIRALP [Catalytic activity/Vol]134 U/HImqq95-167WqsJuoixeHocking [facility] Comment on above:Performed By: #### CMP ####[facility] ([facility])[address] [place] [address] VIRALT [Catalytic activity/Vol]18 U/L Normal<=40Hocking [facility] Community HospitalComment on above:Performed By: #### CMP ####[facility] ([facility])[address], [place] [address] VIRAnion gap [Moles/Vol]15 mmol/LNormal5-15[facility] Comment on above:Performed By: #### CMP ####[facility] ([facility])[address] [place] [address] VIRAST [Catalytic activity/Vol]12 U/L Normal<=41Hocking [facility] Community HospitalComment on above:Performed By: #### CMP ####[facility] ([facility])[address], [place] [address] VIRBilirubin [Mass/Vol]0.8 mg/dLNormal0.3-1.2PZanesville City Hospital Comment on above:Performed By: #### CMP ####[facility] ([address] [place] [address] VIRCalcium [Mass/Vol]8.7 mg/dLNormal 8.5-10.5PZanesville City HospitalComment on above:Performed By: #### CMP ####[facility] ([address] [address] VIRChloride [Moles/Vol]110 mmol/KAqnu44-268JefXonvcpHocking [facility] Comment on above:Performed By: #### CMP ####[facility] ([address] [address] VIRCO2 [Moles/Vol]18 mmol/YDrh07-13 [facility] HospitalComment on above:Performed By: #### CMP ####[facility] ([address] [address] VIR Creatinine [Mass/Vol]2.59 mg/dLHigh0.70-1.20ProChristus Saint Michael HospitalComment on above:Result Comment: METHOD TRACEABLE TO IDMS STANDARDPerformed By: #### CMP ####[address] [address] VIRGFR/1.73 sq M.predicted among non-blacks MDRD (S/P/Bld) [Vol rate/Area] 26 mL/min/{1.73_m2}Low>=60ProChristus Saint Michael HospitalComment on above:Result Comment: eGFR not reported due to non-numeric value for Creatinine. Reported eGFR is based on the CKD-EPI 2021 equation that does not use a race coefficient.Performed By: #### CMP ####[facility] ([address] [address] VIRGlucose [Mass/Vol]104 mg/oUTlap33-81FbfXzpurdChristus Saint Michael HospitalComment on above:Performed By: #### CMP ####[facility] ([address] [address] VIRPotassium [Moles/Vol]3.4 mmol/LLow3.5-5.0[facility] Comment on above:Performed By: #### CMP ####[facility] ([address] [address] VIRProtein [Mass/Vol]7.7 g/dLNormal 6.0-8.0H[facility] HospitalComment on above:Performed By: #### CMP ####[facility] ([address] [address] VIRSodium [Moles/Vol]143 mmol/OLoamdi058-923LmjTqmwfjHocking [facility] Comment on above:Performed By: #### CMP ####[facility] ([address] [address] VIRUrea nitrogen [Mass/Vol]31 mg/dL High5-27ProChristus Saint Michael HospitalComment on above:Performed By: #### CMP ####[facility] ([address] [address] VIRComprehensive metabolic panelon [id number] [Mass/Vol]3.8 g/dL3.2 - 5.3 g/dLProWayne Healthcare Main Campusca Health SystemALP [Catalytic activity/Vol]134 U/LHigh39 - 130 U/LProMedica Health SystemALT No additional P-5'-P [Catalytic activity/Vol]18 U/LNINF - 40 U/LProMedica Health SystemAnion gap [Moles/Vol]15 mmol/L5 - 15 mmol/LProMedica Health SystemAST [Catalytic activity/Vol]12 U/LNINF - 41 U/L [facility]ica Health SystemBilirubin [Mass/Vol]0.8 mg/dL0.3 - 1.2 mg/dLProMedica Health SystemCalcium [Mass/Vol]8.7 mg/dL8.5 - 10.5 mg/dLGreene Memorial Hospital Chloride [Moles/Vol]110 mmol/LHigh98 - 109 mmol/[facility] Health SystemCO2 [Moles/Vol]18 mmol/LLow22 - 32 mmol/[facility] SystemCreatinine [Mass/Vol]2.59 mg/dLHigh0.70 - 1.20 mg/dLGreene Memorial HospitalComment on above:METHOD TRACEABLE TO IDMS STANDARDEGFR Non-Race Hjhwdoylk84Xeo- PINF [facility] HospitalComment on above:eGFR not reported due to non-numeric value for Creatinine. Reported eGFR is based on the CKD-EPI 2020 equation that does not use a race coefficient. Glucose [Mass/Vol]104 mg/fKDpzo15 - 99 mg/dLGreene Memorial Hospital Interpretation and review of laboratory resultsAbnormalGreene Memorial Hospital Potassium [Moles/Vol]3.4 mmol/LLow3.5 - 5.0 mmol/[facility] SystemProtein [Mass/Vol]7.7 g/dL6.0 - 8.0 g/dLFormerly [facility], 1928–1983odium [Moles/Vol]143 mmol/L134 - 146 mmol/[facility] CenterUrea nitrogen [Mass/Vol]31 mg/dL High5 - 27 mg/dLGreene Memorial HospitalGI PANEL STOOL PATHOGEN PANELon [id number] detectedNormalNot DetectedHocking [facility] Comment on above:Performed By: #### GIP ####[facility] ([facility])[address] [address] VIRAGGREGATIVE E COLINot detected NormalNot DetectedHocking Valley Community HospitalComment on above:Performed By: #### GIP ####[facility] ([facility])[address] [place] [address] VIRASTROVIRUSNot detectedNormalNot DetectedHocking [facility] Comment on above:Performed By: #### GIP ####[facility] ([facility])[address] [facility] [address] [place] [address] VIRCAMPYLOBACTERNot detectedNormal Not DetectedProWayne Healthcare Main Campusca Springfield HospitalComment on above:Performed By: #### GIP ####[facility] ([facility])[address] [address] VIRCRYPTOSPORIDIUMNot detectedNormalNot DetectedHocking [facility] Comment on above:Performed By: #### GIP ####[facility] ([facility])[address] [address] VIRCYCLOSPORANot detectedNormalNot DetectedHocking Valley Community HospitalComment on above:Performed By: #### GIP ####[facility] ([facility])[address] [address] VIRE HISTOLYTICANot detectedNormalNot DetectedHocking [facility] Comment on above:Performed By: #### GIP ####[facility] ([facility])[address] [address] VIRGIARDIA LAMBLIANot detected NormalNot DetectedHocking Valley Community HospitalComment on above:Performed By: #### GIP ####[facility] ([facility])[address], [place] [address] VIRNOROVIRUSNot detectedNormalNot DetectedHocking [facility] Comment on above:Performed By: #### GIP ####[facility] ([facility])[address] [address] VIRPATHOGENIC E COLINot detected NormalNot DetectedHocking Valley Community HospitalComment on above:Performed By: #### GIP ####[facility] ([facility])[address], [place] [address] VIRPLESIOMONASNot detectedNormalNot DetectedHocking [facility] Comment on above:Performed By: #### GIP ####[facility] ([facility])[address] [address] VIRROTAVIRUS ANot detectedNormalNot DetectedHocking Valley Community HospitalComment on above:Performed By: #### GIP ####[facility] ([facility])[address] [address] VIRSALMONELLANot detectedNormalNot DetectedProWilbarger General Hospital on above:Performed By: #### GIP ####[facility] ([facility])[address] [address] VIRSAPOVIRUSNot detectedNormalNot DetectedProWood County Hospital HospitalComment on above:Performed By: #### GIP ####[facility] ([facility])[address] [address] VIRSHIGA TOXIN E COLINot detectedNormalNot DetectedProChristus Saint Michael HospitalComment on above:Performed By: #### GIP ####[facility] ([facility])[address] [address] VIRSHIGELLA-E COLINot detectedNormalNot DetectedProWood County Hospital HospitalComment on above:Performed By: #### GIP ####[facility] ([facility])[address] [address] VIRTOXIGENIC E COLINot detectedNormalNot DetectedProWood County Hospital HospitalComment on above:Performed By: #### GIP ####[facility] ([facility])[address] [address] VIRVIBRIONot detectedNormalNot DetectedProWood County Hospital HospitalComment on above:Performed By: #### GIP ####[facility] ([facility])[address] [address] VIRVIBRIO CHOLERAENot detectedNormalNot DetectedProWood County Hospital HospitalComment on above:Performed By: #### GIP ####[facility] ([facility])[address] [address] ABDELRAHMAN. ENTEROCOLITICANot detectedNormalNot DetectedProWood County Hospital HospitalComment on above:Performed By: #### GIP ####[facility] ([facility])[address] [address] VIRGastrointestinal pathogens DNA and RNA panel POLO+non-probe (Stl)Ordered By: Evonen Coffey on [id number] DNA POLO+probe Ql (Unsp spec)Not detectedNot DetectedProPaulding County Hospital Astrovirus subtypes 1-8 RNA POLO+non-probe Ql (Stl)Not detectedNot Detected [facility] HospitalC. cayetanensis DNA POLO+non-probe Ql (Stl)Not detectedNot DetectedProPaulding County HospitalC. coli+jejuni+upsaliensis DNA POLO+non-probe Ql (Stl)Not detectedNot DetectedProPaulding County HospitalCryptosporidium sp DNA POLO+non-probe Ql (Stl)Not detectedNot DetectedProUniversity Hospitals [facility] SystemE. coli enteroaggregative Shiela plasmid aggR+aatA genes POLO+non-probe Ql (Stl)Not detected Not DetectedProUniversity Hospitals [facility] SystemE. coli enteropathogenic eae gene POLO+non- probe Ql (Stl)Not detectedNot DetectedProUniversity Hospitals [facility] Center SystemE. coli enterotoxigenic ltA+st1a+st1b genes POLO+non-probe Ql (Stl)Not detectedNot DetectedProPaulding County HospitalE. coli stx1+stx2 genes POLO+non-probe Ql (Stl)Not detectedNot DetectedProPaulding County HospitalE. histolytica DNA POLO+non-probe Ql (Stl)Not detectedNot DetectedGreene Memorial HospitalG. lamblia DNA POLO+non-probe Ql (Stl)Not detectedNot DetectedProPaulding County HospitalInterpretation and review of laboratory resultsNormalProPaulding County HospitalNorovirus genogroup I+II RNA POLO+non-probe Ql (Stl)Not detectedNot DetectedProPaulding County HospitalP. shigelloides DNA POLO+non-probe Ql (Stl)Not detectedNot DetectedProPaulding County HospitalRotavirus A RNA POLO+non-probe Ql (Stl)Not detectedNot DetectedProTuscarawas Hospital. enterica+bongori DNA POLO+non-probe Ql (Stl)Not detectedNot DetectedProTuscarawas Hospitalapovirus genogroups I+II+IV+V RNA POLO+non-probe Ql (Stl)Not detectedNot DetectedFormerly [facility], 1928–1983higella species+EIEC invasion plasmid antigen H ipaH gene POLO+non-probe Ql (Stl)Not detectedNot DetectedGreene Memorial HospitalV. cholerae DNA POLO+non-probe Ql (Stl)Not detectedNot DetectedGreene Memorial HospitalV. cholerae+parahaemolyticus+vulnificus DNA POLO+non-probe Ql (Stl)Not detectedNot DetectedGreene Memorial HospitalY. enterocolitica DNA POLO+non-probe Ql (Stl)Not detectedNot DetectedSelect Specialty Hospital - [facility] UPMCMAGNESIUMon [id number] [Mass/Vol]1.9 mg/dLNormal1.8-2.6[facility] Comment on above:Performed By: #### MG ####[facility] ([place] [address] VIRMagnesiumon 01-05-2025 Interpretation and review of laboratory resultsNormalGreene Memorial Hospital Magnesium [Mass/Vol]1.9 mg/dL1.8 - 2.6 mg/dLGreene Memorial HospitalNo Panel Informationon [id number] Memorial HospitalCBC WITH AUTO DIFFERENTIALon [id number] ABSOLUTE COUNT (10*3/UL) BY AUTOMATED COUNT0.0 10*3/uLNormal 0.0-0.2PZanesville City HospitalComment on above:Performed By: #### CMP #### [facility] ([address] [address] VIRBASOPHILS RELATIVE PERCENT BY AUTOMATED COUNT0.2 %Normal [facility] HospitalComment on above:Performed By: #### CMP #### [facility] ([address] [address] VIRCELLAVISION DIFFERENTIAL TYPEAUTOMATED DIFFERENTIALNormal [facility] HospitalComment on above:Performed By: #### CMP #### [facility] ([address] [address] VIREosinophils (Bld) [#/Vol]0.1 10*3/uLNormal0.0-0.4H[facility] HospitalComment on above:Performed By: #### CMP #### [facility] ([address] [place] [address] VIREOSINOPHILS RELATIVE PERCENT BY AUTOMATED COUNT0.7 %Normal [facility] HospitalComment on above:Performed By: #### CMP #### [facility] ([address] [place] [address] VIRErythrocyte distribution width (RBC) [Ratio]13.9 %Normal 11.5-15ProChristus Saint Michael HospitalComment on above:Performed By: #### CMP #### [facility] ([address] [place] [address] VIRHematocrit (Bld) [Volume fraction]44.9 %Ddwwvs89-70 [facility] HospitalComment on above:Performed By: #### CMP #### [facility] ([address] [place] [address] VIRHemoglobin (Bld) [Mass/Vol]14.9 g/nDIuwjfo00-46IcgDnklypChristus Saint Michael HospitalComment on above:Performed By: #### CMP #### [facility] ([address] [place] [address] VIRLYMPHOCYTES ABSOLUTE COUNT (10*3/UL) BY AUTOMATED COUNT1.7 10*3/uLNormal1.0-3.5PZanesville City HospitalComment on above:Performed By: #### CMP #### [facility] ([address] [place] [address] VIRLYMPHOCYTES RELATIVE PERCENT BY AUTOMATED COUNT12.2 %Normal [facility] HospitalComment on above:Performed By: #### CMP #### [facility] ([address] [place] [address] VIRMCH (RBC) [Entitic mass]31.5 nqOhjabr59-94BaxJcjpbqHocking Valley Community HospitalComment on above:Performed By: #### CMP #### [facility] ([address] [place] [address] VIRMCHC (RBC) [Mass/Vol]33.1 g/rCIlxksh73-90FtqFbhddfChristus Saint Michael HospitalComment on above:Performed By: #### CMP #### [facility] ([address] [place] [address] VIRMCV (RBC) [Entitic vol]95 sEIcgrpk57-463MifVpuszp [facility]remont HospitalComment on above:Performed By: #### CMP #### [facility] ([address] [place] [address] VIRMONOCYTES ABSOLUTE COUNT (10*3/UL) BY AUTOMATED COUNT0.7 10*3/uLNormal0.0-0.9ProChristus Saint Michael HospitalComment on above:Performed By: #### CMP #### [facility] ([address] [place] [address] VIRMONOCYTES RELATIVE PERCENT BY AUTOMATED COUNT5.2 %Normal [facility] HospitalComment on above:Performed By: #### CMP #### [facility] ([address] [place] [address] VIRNEUTROPHILS ABSOLUTE COUNT BY AUTOMATED COUNT11.0 10*3/uL High1.5-6.6ProChristus Saint Michael HospitalComment on above:Performed By: #### CMP #### [facility] ([address] [place] [address] VIRNEUTROPHILS RELATIVE PERCENT BY AUTOMATED COUNT81.7 %Normal [facility] HospitalComment on above:Performed By: #### CMP #### [facility] ([address] [place] [address] VIRPlatelet mean volume (Bld) [Entitic vol]7.5 fLNormal7-12 [facility] HospitalComment on above:Performed By: #### CMP #### [facility] ([address] [place] [address] VIRPlatelets (Bld) [#/Vol]365 10*3/jBCgauym875-889VwrXljhlm [facility] HospitalComment on above:Performed By: #### CMP #### [facility] ([address] [place] [address] VIRRBC COUNT4.72 X10E12/LNormal4.1-5.7H[facility] HospitalComment on above:Performed By: #### CMP #### [facility] ([address] [place] [address] VIRWBC (Bld) [#/Vol]13.5 10*3/uLHigh4-11ProChristus Saint Michael HospitalComment on above:Performed By: #### CMP #### [facility] ([address] [place] [address] VIRCBC auto differentialon [id number] (Bld) [#/Vol] 0.0 10*3/uL0.0 - 0.2 10*3/uLGreene Memorial HospitalBasophils/100 WBC (Bld)0.2 % [facility] HospitalDifferential cell count method Nom (Bld)AUTOMATED DIFFERENTIALGreene Memorial HospitalEosinophils (Bld) [#/Vol]0.1 10*3/uL0.0 - 0.4 10*3/uLGreene Memorial HospitalEosinophils/100 WBC (Bld)0.7 %[facility] HospitalErythrocyte distribution width (RBC) [Ratio]13.9 %11.5 - 15 %[facility] HospitalHematocrit (Bld) [Volume fraction]44.9 %39 - 50 %[facility] HospitalHemoglobin (Bld) [Mass/Vol]14.9 g/dL13 - 17 g/dLGreene Memorial Hospital Interpretation and review of laboratory resultsAbnormAvita Health System [facility] Lymphocytes (Bld) [#/Vol]1.7 10*3/uL1.0 - 3.5 10*3/uLGreene Memorial Hospital Lymphocytes/100 WBC (Bld)12.2 %[facility] HospitalH (RBC) [Entitic mass] 31.5 pg27 - 34 pgPClinton Memorial HospitalMCHC (RBC) [Mass/Vol]33.1 g/dL32 - 36 g/dLGreene Memorial HospitalMCV (RBC) [Entitic vol]95 fL80 - 100 [facility] SystemMonocytes (Bld) [#/Vol]0.7 10*3/uL0.0 - 0.9 10*3/uLGreene Memorial HospitalMonocytes/100 WBC (Bld)5.2 %[facility] HospitalNeutrophils (Bld) [#/Vol]11.0 10*3/uLHigh1.5 - 6.6 10*3/uLGreene Memorial HospitalNeutrophils/100 WBC (Bld)81.7 %[facility] HospitalPlatelet mean volume (Bld) [Entitic vol] 7.5 fL7 - 12 [facility] SystemPlatelets (Bld) [#/Vol]365 10*3/uL [facility] HospitalRBC (Bld) [#/Vol]4.72 10*6/uLGreene Memorial HospitalWBC LM Ql (Sput)13.5HPrime Healthcare ServicesCOMPREHENSIVE METABOLIC PANELon [id number] [Mass/Vol]4.4 g/dLNormal3.2-5.3PZanesville City HospitalComment on above:Performed By: #### CMP #### [facility] ([facility] [address] [place] [place] [address] VIRALP [Catalytic activity/Vol]150 U/GOymx16-923EqnShivwfHocking Valley Community HospitalComment on above:Performed By: #### CMP #### [facility] ([place] [address] [place] [address] VIRALT [Catalytic activity/Vol]23 U/LNormal<=40ProChristus Saint Michael HospitalComment on above:Performed By: #### CMP #### [facility] ([place] [address] [place] [address] VIRAnion gap [Moles/Vol]15 mmol/LNormal5-15ProChristus Saint Michael HospitalComment on above:Performed By: #### CMP #### [facility] ([place] [address] [address] VIRAST [Catalytic activity/Vol]16 U/LNormal<=41ProChristus Saint Michael HospitalComment on above:Performed By: #### CMP #### [facility] ([place] [address] [place] [address] VIRBilirubin [Mass/Vol]0.4 mg/dLNormal0.3-1.2PZanesville City HospitalComment on above:Performed By: #### CMP #### [facility] ([place] [address] [place] [address] VIRCalcium [Mass/Vol]9.4 mg/dLNormal8.5-10.5PZanesville City HospitalComment on above:Performed By: #### CMP #### [facility] ([place] [address] [place] [address] VIRChloride [Moles/Vol]107 mmol/ROtbwng57-888NvcXvrcpmChristus Saint Michael HospitalComment on above:Performed By: #### CMP #### [facility] ([place] [address] [place] [address] VIRCO2 [Moles/Vol]18 mmol/MKyj82-79PohXsjcojZanesville City Hospital Comment on above:Performed By: #### CMP #### [facility] ([place] [address] [place] [address] VIRCreatinine [Mass/Vol]2.22 mg/dLHigh0.70-1.20ProChristus Saint Michael HospitalComment on above:Result Comment: METHOD TRACEABLE TO IDMS STANDARDPerformed By: #### CMP #### [facility] ([address] [place] [address] VIRGFR/1.73 sq M.predicted among non-blacks MDRD (S/P/Bld) [Vol rate/Area]31 mL/min/{1.73_m2}Low>=60ProChristus Saint Michael HospitalComment on above:Result Comment: eGFR not reported due to non-numeric value for Creatinine. Reported eGFR is based on the CKD-EPI 2020 equation that does not use a race coefficient.Performed By: #### CMP #### [facility] ([address] [place] [address] VIRGlucose [Mass/Vol]132 mg/nZBbar69-03UpdOufyxzChristus Saint Michael HospitalComment on above:Performed By: #### CMP #### [facility] ([address] [place] [address] VIRPotassium [Moles/Vol]3.6 mmol/LNormal3.5-5.0ProChristus Saint Michael HospitalComment on above:Performed By: #### CMP #### [address] [place] [address] VIRProtein [Mass/Vol]8.8 g/dLHigh6.0-8.0ProChristus Saint Michael HospitalComment on above:Performed By: #### CMP #### [facility] ([address] [place] [address] VIRSodium [Moles/Vol]140 mmol/UCdgttf881-005FecQuxlvv [place] HospitalComment on above:Performed By: #### CMP #### [facility] ([address] [place] [address] VIRUrea nitrogen [Mass/Vol]26 mg/dLNormal5-27H[facility] Community HospitalComment on above:Performed By: #### CMP #### [facility] ([facility]) [address] [place] [address] VIRComprehensive metabolic panelon [id number] [Mass/Vol]4.4 g/dL3.2 - 5.3 g/dLProHelen Keller Hospital Health SystemALP [Catalytic activity/Vol]150 U/LHigh39 - 130 U/LProMedica Health SystemALT No additional P-5'-P [Catalytic activity/Vol]23 U/LNINF - 40 U/LProMedica Health SystemAnion gap [Moles/Vol]15 mmol/L5 - 15 mmol/LProMedica Health SystemAST [Catalytic activity/Vol]16 U/LNINF - 41 U/LProMedica Health SystemBilirubin [Mass/Vol]0.4 mg/dL0.3 - 1.2 mg/dLProUniversity [facility] SystemCalcium [Mass/Vol]9.4 mg/dL8.5 - 10.5 mg/dLProHelen Keller Hospital Health SystemChloride [Moles/Vol]107 mmol/L98 - 109 mmol/L [facility] Health SystemCO2 [Moles/Vol]18 mmol/LLow22 - 32 mmol/LPrLee's Summit Hospitalica Health SystemCreatinine [Mass/Vol]2.22 mg/dLHigh0.70 - 1.20 mg/dLBrown Memorial Hospital SystemComment on above:METHOD TRACEABLE TO IDMS STANDARDEGFR Non-Race Dependent 31Low- PINFPMiami Valley Hospital SystemComment on above:eGFR not reported due to non- numeric value for Creatinine. Reported eGFR is based on the CKD-EPI 202 equation that does not use a race coefficient. Glucose [Mass/Vol]132 mg/eCAuve58 - 99 mg/dLBrown Memorial Hospital System Interpretation and review of laboratory resultsAbnormalBrown Memorial Hospital System Potassium [Moles/Vol]3.6 mmol/L3.5 - 5.0 mmol/LProMedica Health SystemProtein [Mass/Vol]8.8 g/dLHigh6.0 - 8.0 g/dLBrown Memorial Hospital SystemSodium [Moles/Vol]140 mmol/L134 - 146 mmol/LProMedica Health SystemUrea nitrogen [Mass/Vol]26 mg/dL5 - 27 mg/dLProThedaCare Medical Center - [facility] Inc SystemCritical Careon [id number] Truong MD 01/04/2025 10:44 PM Critical Care Performed by: Shruthi Valdes, PROGRAM DIR-PATTERN PAINTER Authorized by: Eliezer Truong MD Critical care provider statement: Critical care time (minutes): 35 Critical care was necessary to treat or prevent imminent or life-threatening deterioration of the following conditions: Renal failure Critical care was time spent personally by me on the following activities: Discussions with consultants, evaluation of patient's response to treatment, examination of patient, obtaining history from patient or surrogate, ordering and performing treatments and interventions, ordering and review of laboratory studies, ordering and review of radiographic studies, pulse oximetry, re-evaluation of patient's condition and review of old charts I assumed direction of critical care for this patient from another provider in my specialty: yes Care discussed with: admitting providerProUniversity Hospitals [facility] Health SystemLACTATE W/ REFLEXon [id number] W/REFLEX1.3 mmol/LNormal0.4-2.0 [facility] HospitalComment on above:Order Comment: Result did not trigger repeat Lactate,re-order if needed.Performed By: #### CMP #### [facility] ([address] [address] VIRLactate w/ Reflexon [id number] and review of laboratory resultsNormalProUniversity [facility]als [facility] SystemLactate (P simon) [Moles/Vol]1.3 mmol/L0.4 - 2.0 mmol/LProMedica Health SystemResult did not trigger repeat Lactate, re-order if needed.[facility] SystemX-ray abdomen NG Tube placement 1 viewon [id number]: Abdomen one view. HISTORY: Feeding tube placement. IMPRESSION: 1. A feeding tube tip is deep in the left lateral body of the stomach. The stomach is air distended. Finalized by Mir Palencia MD on 01/04/2025 6:18 PMSECTRAJocelyne, Mir Lopez MD - 01/04/2025 Exam: Abdomen one view. HISTORY: Feeding tube placement. IMPRESSION: 1. A feeding tube tip is deep in the left lateral body of the stomach. The stomach is air distended. Finalized by Mir Palencia MD on 01/04/2025 6:18 PM [facility] HospitalGraphite Systems [facility] HospitalRadiology Study observation (narrative)[facility] HospitalGraphite Systems SystemX-ray abdomen NG Tube placement 1 viewOrdered By: Mir Palencia on [id number] Work Phone: XR ABD NG TUBE PLACEMENT 1 VIEWon [id number] ABD NG TUBE PLACEMENT 1 VIEWXR ABD NG TUBE PLACEMENT 1 VIEW Exam: Abdomen one view. HISTORY: Feeding tube placement. IMPRESSION: 1. A feeding tube tip is deep in the left lateral body of the stomach. The stomach is air distended. Finalized by Mir Palencia MD on 01/04/2025 6:18 PMNPremier HealthXR ABDOM COMP SERIES W PA CHESTon [id number] ABDOM COMP SERIES W PA CHESTXR ABDOM COMP SERIES W PA CHEST Abdomen: HISTORY: Abdominal pain and vomiting. 5 views of the abdomen were obtained. There is nonspecific gaseous bowel prominence which appears to involve both large and small bowel. Stomach appears mildly distended. No free air appreciated. Left lower lobe discoid atelectasis appreciated. IMPRESSION: Nonspecific gaseous bowel prominence. This appears similar to previous CT dated 01/03/2025. Close follow-up recommended. Finalized by Dimas Delgado MD on 01/04/2025 2:25 PMNPremier HealthXR Chest and Abdomen Viewson [id number]: HISTORY: Abdominal pain and vomiting. 5 views of the abdomen were obtained. There is nonspecific gaseous bowel prominence which appears to involve both large and small bowel. Stomach appears mildly distended. No free air appreciated. Left lower lobe discoid atelectasis appreciated. IMPRESSION: Nonspecific gaseous bowel prominence. This appears similar to previous CT dated 01/03/2025. Close follow-up recommended. Finalized by Dimas Delgado MD on 01/04/2025 2:25 PMSDimas Guan MD - 01/04/2025 Abdomen: HISTORY: Abdominal pain and vomiting. 5 views of the abdomen were obtained. There is nonspecific gaseous bowel prominence which appears to involve both large and small bowel. Stomach appears mildly distended. No free air appreciated. Left lower lobe discoid atelectasis appreciated. IMPRESSION: Nonspecific gaseous bowel prominence. This appears similar to previous CT dated 01/03/2025. Close follow-up recommended. Finalized by Dimas Delgado MD on 01/04/2025 2:25 PM [facility] [employer] [facility] HospitalRadiology Study observation (narrative)[facility] HospitalGraphite Systems [facility] HospitalXR Chest and Abdomen ViewsOrdered By: Dimas Delgado on 01-04-2025 [facility] Work Phone: BASIC METABOLIC PANELon [id number] gap [Moles/Vol]10 mmol/LNormal5-15ProChristus Saint Michael HospitalComment on above: Performed By: #### CMP #### [facility] ([address] [place] [address] VIRCalcium [Mass/Vol]8.7 mg/dLNormal8.5-10.5PZanesville City HospitalComment on above:Performed By: #### CMP #### [facility] ([address] [place] [address] VIRChloride [Moles/Vol]106 mmol/VFrzfwv79-102HzjDuuslvChristus Saint Michael HospitalComment on above:Performed By: #### CMP #### [facility] ([address] [place] [address] VIRCO2 [Moles/Vol]22 mmol/ZEscepu86-38NjsOalzzmZanesville City HospitalComment on above:Performed By: #### CMP #### [facility] ([address] [address] VIRCreatinine [Mass/Vol]1.03 mg/dLNormal0.70-1.20ProChristus Saint Michael HospitalComment on above:Result Comment: METHOD TRACEABLE TO IDMS STANDARDPerformed By: #### CMP #### [facility] ([address] [address] VIRGFR/1.73 sq M.predicted among non-blacks MDRD (S/P/Bld) [Vol rate/Area]79 mL/min/{1.73_m2}Normal>=60ProChristus Saint Michael HospitalComment on above:Result Comment: eGFR not reported due to non-numeric value for Creatinine. Reported eGFR is based on the CKD-EPI 2020 equation that does not use a race coefficient.Performed By: #### CMP #### [facility] ([address] [address] VIRGlucose [Mass/Vol]86 mg/eQDyaccj87-76FduXufwmqChristus Saint Michael HospitalComment on above:Performed By: #### CMP #### [facility] ([address] [address] VIRPotassium [Moles/Vol]3.3 mmol/LLow3.5-5.0ProChristus Saint Michael HospitalComment on above:Performed By: #### CMP #### [address] [address] VIRSodium [Moles/Vol]138 mmol/VKwhmjd771-779AuwZvzvot [place] HospitalComment on above:Performed By: #### CMP #### [address] [address] VIRUrea nitrogen [Mass/Vol]19 mg/dLNormal5-27ProChristus Saint Michael HospitalComment on above:Performed By: #### CMP #### [facility] ([address] [address] VIRCBC WITH AUTO DIFFERENTIALon [id number] ABSOLUTE COUNT (10*3/UL) BY AUTOMATED COUNT0.1 10*3/uLNormal0.0-0.2Pro[facility] Medical CenterComment on above:Performed By: #### LIPA #### [facility] ([address] [address] VIRBASOPHILS RELATIVE PERCENT BY AUTOMATED COUNT0.6 %Normal [facility] HospitalComment on above:Performed By: #### LIPA #### [address] [address] VIRCELLAVISION DIFFERENTIAL TYPEAUTOMATED DIFFERENTIALNormal [facility] HospitalComment on above:Performed By: #### LIPA #### [facility] ([address] [address] VIREosinophils (Bld) [#/Vol]0.6 10*3/uLHigh0.0-0.4[facility] HospitalComment on above:Performed By: #### LIPA #### [facility] ([address] [address] VIREOSINOPHILS RELATIVE PERCENT BY AUTOMATED COUNT6.9 %Normal [facility] HospitalComment on above:Performed By: #### LIPA #### [facility] ([address] [address] VIRErythrocyte distribution width (RBC) [Ratio]13.7 %Normal 11.5-15[facility] HospitalComment on above:Performed By: #### LIPA #### [address] [address] VIRHematocrit (Bld) [Volume fraction]38.8 %Beb26-49TcdUbssmqChristus Saint Michael HospitalComment on above:Performed By: #### LIPA #### [facility] ([address] [place] [address] VIRHemoglobin (Bld) [Mass/Vol]12.8 g/gKVgn63-97PdoSigjzqChristus Saint Michael HospitalComment on above:Performed By: #### LIPA #### [facility] ([address] [place] [address] VIRLYMPHOCYTES ABSOLUTE COUNT (10*3/UL) BY AUTOMATED COUNT1.8 10*3/uLNormal1.0-3.5PZanesville City HospitalComment on above:Performed By: #### LIPA #### [facility] ([address] [place] [address] VIRLYMPHOCYTES RELATIVE PERCENT BY AUTOMATED COUNT21.2 %Normal [facility] HospitalComment on above:Performed By: #### LIPA #### [facility] ([address] [place] [address] VIRMCH (RBC) [Entitic mass]31.5 yqNltdln17-31CmsQaebnnChristus Saint Michael HospitalComment on above:Performed By: #### LIPA #### [facility] ([address] [place] [address] VIRMCHC (RBC) [Mass/Vol]33.1 g/sXDhjdty41-41FxbYwprtkChristus Saint Michael HospitalComment on above:Performed By: #### LIPA #### [facility] ([address] [place] [address] VIRMCV (RBC) [Entitic vol]95 bWAhrhon88-582FkrBnwfid [place] HospitalComment on above:Performed By: #### LIPA #### [facility] ([address] [place] [address] VIRMONOCYTES ABSOLUTE COUNT (10*3/UL) BY AUTOMATED COUNT0.6 10*3/uLNormal0.0-0.9[facility] HospitalComment on above:Performed By: #### LIPA #### [facility] ([address] [place] [address] VIRMONOCYTES RELATIVE PERCENT BY AUTOMATED COUNT7.6 %Normal [facility] HospitalComment on above:Performed By: #### LIPA #### [facility] ([address] [place] [address] VIRNEUTROPHILS ABSOLUTE COUNT BY AUTOMATED COUNT5.4 10*3/uL Normal1.5-6.6[facility] HospitalComment on above:Performed By: #### LIPA #### [facility] ([address] [place] [address] VIRNEUTROPHILS RELATIVE PERCENT BY AUTOMATED COUNT63.7 %Normal [facility] HospitalComment on above:Performed By: #### LIPA #### [facility] ([address] [place] [address] VIRPlatelet mean volume (Bld) [Entitic vol]7.3 fLNormal7-12 [facility] HospitalComment on above:Performed By: #### LIPA #### [facility] ([address] [place] [address] VIRPlatelets (Bld) [#/Vol]276 10*3/jYBxdtby308-078YsxRwotxv [place] HospitalComment on above:Performed By: #### LIPA #### [facility] ([address] [place] [address] VIRRBC COUNT4.08 X10E12/LLow4.1-5.7[facility] Comment on above:Performed By: #### LIPA #### [facility] ([address] [place] [address] VIRWBC (Bld) [#/Vol]8.5 10*3/uLNormal4-11Pro[facility] Medical CenterComment on above:Performed By: #### LIPA #### [facility] ([facility]) [address] [place] [address] VIRCT ABDOMEN AND PELVIS W CONTon [id number] ABDOMEN AND PELVIS W CONTCT ABDOMEN AND PELVIS W CONT HISTORY and Tech Notes: Abdominal pain Small bowel obstruction PROCEDURE: CT abdomen pelvis Study is done with IV contrast Routine protocol Automated exposure control was utilized COMPARISON: December 29 FINDINGS: UPPER ABDOMEN No splenomegaly. Line the detail is somewhat degraded and obscured because of motion and other technical factors including the positioning of the arms There is a chronic appearing crescentic fluid collection and calcification along the lateral aspectof the posterior and mid left kidney with small cyst at the inferior margin of that with some peripheral calcification No peripancreatic fluid collections. No suspicious liver mass. The hepatic veins and portal veins look patent No ductal dilatation No perihepatic fluid The stomach is filled with fluid and looks dilated The duodenum and proximal jejunum do not look particularly dilated There is however some dilatation of the small bowel in the left mid abdomen extending up to the anastomosis sutures near the level of the iliac crest GB unremarkable. No suspicious adrenal mass seen Moderate vascular calcification PELVIS No hydronephrosis . Nondilated bladder Fluid-filled rectum No fecal impaction or perirectal abscess There is some gaseous distention of portions of large and small bowel The mobile cecum is positioned in the right supraumbilical region with fluid- filled distal ileum The appendix is not clearly visible There are small lymph nodes in the mesentery and retroperitoneum. No sign of an abdominal aortic aneurysm. No retroperitoneal bleed or suspicious adenopathy. No suspicious fluid along the paracolic gutters or subhepatic region There is not significant fluid or gas in the mesentery. LUNG BASE EVALUATION Patchy opacities at the left base may be atelectasis or mild pneumonia No effusions. . BONE RECONSTRUCTIONS no compression deformity. No discitis or other lytic destructive process Severe multilevel canal stenosis probably most impressive at L1-L2. IMPRESSION: Nonspecific distended central and peripheral bowel loops including portions of the large and small bowel thought largely to relate to ileus There is slightly greater distention of fluid-filled small bowel in the left mid abdomen extending up to some small bowel anastomosis sutures near the level of the left iliac crest, without suspicious fluid or gas in the mesentery around that anastomosis or along the paracolic gutters There is fluid-filled dilated stomach but without significant dilatation of the duodenum or proximal jejunal segments There is slight elevation of left diaphragm with some patchy opacities in the left base which may be atelectasis or mild pneumonia The presence of considerable fluid in portions of the large and small bowel and rectum, a nonspecific finding that can be related to diarrhea, gastroenteritis or malabsorption syndromes. . . All CT scans at this facility use dose modulation, iterative reconstruction, and/or weight based dosing when appropriate to reduce radiation dose to as low as reasonably achievable. Finalized by Subhash Carrizales MD on 01/03/2025 2:18 PMNormalProChristus Saint Michael HospitalLACTATE W/ REFLEXon [id number] W/REFLEX1.5 mmol/LNormal0.4-2.0 [facility] HospitalComment on above:Order Comment: Result did not trigger repeat Lactate,re-order if needed.Performed By: #### CMP #### [facility] ([address] [address] VIRLIPASEon [id number] [Catalytic activity/Vol]47 U/L Qjnq15-72OjjIekerfHocking Valley Community HospitalComment on above:Performed By: #### CMP #### [facility] ([address] [address] VIRLIVER PANELon [id number] [Mass/Vol]3.7 g/dLNormal 3.2-5.3Pro[facility] Medical CenterComment on above:Performed By: #### CMP #### [facility] ([address] [address] VIRALP [Catalytic activity/Vol]136 U/GBuke77-109YfcHstzdqChristus Saint Michael HospitalComment on above:Performed By: #### CMP #### [facility] ([place] [address] [place] [address] VIRALT [Catalytic activity/Vol]21 U/LNormal<=40ProChristus Saint Michael HospitalComment on above:Performed By: #### CMP #### [facility] ([place] [address] [place] [address] VIRAST [Catalytic activity/Vol]20 U/LNormal<=41ProChrist[facility] Saint Michael HospitalComment on above:Performed By: #### CMP #### [facility] ([place] [address] [address] VIRBilirubin [Mass/Vol]0.4 mg/dLNormal0.3-1.2ProMedFremont HospitalComment on above:Performed By: #### CMP #### [facility] ([place] [address] [address] VIRBilirubin.indirect [Mass/Vol]0.1 mg/dLNormal<=0.4ProChristus Saint Michael HospitalComment on above:Performed By: #### CMP #### [facility] ([place] [address] [address] VIRProtein [Mass/Vol]7.7 g/dLNormal6.0-8.0ProChristus Saint Michael HospitalComment on above:Performed By: #### CMP #### [facility] ([place] [address] [place] [address] VIRMAGNESIUMon [id number] [Mass/Vol]1.8 mg/dLNormal 1.8-2.6ProChristus Saint Michael HospitalComment on above:Performed By: #### CMP #### [facility] ([place] [address] [place] [address] VIRURINE CULTUREon [id number] identified Cx Nom (U) CULTURE RESULTS KLEBSIELLA PNEUMONIAE >100,000 CFU/mL Klebsiella pneumoniae KLEBSIELLA PNEUMONIAE >100,000 CFU/mL Klebsiella pneumoniae Variant [ S = SUSCEPTIBLE R = RESISTANT I = INTERMEDIATE S-DO = Susceptible-dose dependent NS = Non-suscceptible NO = No Interpretation ] Organism: KLEBSIELLA PNEUMONIAE Antibiotic Interpretation CARMEN Status Ampicillin R 16 F AMP/SULBACTAM S 4.0 F PIPERACIL/TAZOBACTAM S <=^4.0 F Cefazolin (non-urinary) S 2.0 F Cefazolin (urinary) S 2.0 F Ceftriaxone S <=^0.25 F Gentamicin S <=^1.0 F Ciprofloxacin S <=^0.06 F Levofloxacin S <=^0.12 F Nitrofurantoin S <=^16.0 F Trimethoprim + Sulfamethoxazole S <=^1.0 F [ S = SUSCEPTIBLE R = RESISTANT I = INTERMEDIATE S-DO= Susceptible-dose dependent NS = Non-suscceptible NO = No Interpretation ] Organism: KLEBSIELLA PNEUMONIAE Antibiotic Interpretation CARMEN Status Ampicillin R >=^32.0 F AMP/SULBACTAM S 4.0 F PIPERACIL/TAZOBACTAM S <=^4.0 F Cefazolin (non-urinary) S 2.0 F Cefazolin (urinary) S 2.0 F Ceftriaxone S <=^0.25 F Gentamicin S <=^1.0 F Ciprofloxacin S <=^0.06 F Levofloxacin S <=^0.12 F Nitrofurantoin S <=^16.0 F Trimethoprim + Sulfamethoxazole S <=^1.0 FSusceptibleHocking Valley Community Hospital Comment on above:Performed By: #### KANDACE #### [facility] ([address] [place] [address] VIRBASIC METABOLIC PANELon [id number] gap [Moles/Vol]10 mmol/LNormal5-15[facility] HospitalComment on above:Performed By: #### LIPAna #### [facility] ([address] [place] [address] VIRCalcium [Mass/Vol]8.3 mg/dLLow8.5-10.5PZanesville City HospitalComment on above:Performed By: #### LIPA #### [facility] ([address] [place] [address] VIRChloride [Moles/Vol]111 mmol/DJuhh77-029XfeVurhwbChristus Saint Michael HospitalComment on above:Performed By: #### LIPA #### [facility] ([address] [address] VIRCO2 [Moles/Vol]21 mmol/YXvs22-87HjsHmvwruZanesville City Hospital Comment on above:Performed By: #### LIPA #### [facility] ([address] [address] VIRCreatinine [Mass/Vol]0.87 mg/dLNormal0.70-1.20ProChristus Saint Michael HospitalComment on above:Result Comment: METHOD TRACEABLE TO IDMS STANDARDPerformed By: #### LIPA #### [facility] [facility] ([address] [address] VIREGFR (CKD-EPI) NON-RACE DEPENDENT>^90Normal>=60ProChristus Saint Michael HospitalComment on above:Result Comment: eGFR not reported due to non- numeric value for Creatinine. Reported eGFR is based on the CKD-EPI 2021 equation that does not use a race coefficient.Performed By: #### LIPA #### [facility] ([address] [place] [address] VIRGlucose [Mass/Vol]80 mg/iJCxiutx28-92VavEjsvplChristus Saint Michael HospitalComment on above:Performed By: #### LIPA #### [facility] ([address] [place] [address] VIRPotassium [Moles/Vol]3.6 mmol/LNormal3.5-5.0ProChristus Saint Michael HospitalComment on above:Performed By: #### LIPA #### [facility] ([address] [place] [address] VIRSodium [Moles/Vol]142 mmol/RKmufvj523-172KgcJeoiib [facility]remont HospitalComment on above:Performed By: #### LIPA #### [facility] ([address] [place] [address] VIRUrea nitrogen [Mass/Vol]22 mg/dLNormal5-27ProChristus Saint Michael HospitalComment on above:Performed By: #### LIPA #### [facility] ([address] [place] [address] VIRC DIFFICILE BY PCRon 12-31-2024 DIFFICILE BY PCRCDFPCR C DIFFICILE BY PCR CancelledNoUniversity Hospitals Conneaut Medical CenterCB WITH AUTO DIFFERENTIALon [id number] ABSOLUTE COUNT (10*3/UL) BY AUTOMATED COUNT 0.1 10*3/uLNormal0.0-0.2PZanesville City HospitalComment on above:Performed By: #### LIPA #### [address] [place] [address] VIRBASOPHILS RELATIVE PERCENT BY AUTOMATED COUNT0.6 %Normal [facility] HospitalComment on above:Performed By: #### LIPA #### [facility] ([address] [place] [address] VIRCELLAVISION DIFFERENTIAL TYPEAUTOMATED DIFFERENTIALNormal [facility] HospitalComment on above:Performed By: #### LIPA #### [facility] ([address] [place] [address] VIREosinophils (Bld) [#/Vol]0.1 10*3/uLNormal0.0-0.4[facility] HospitalComment on above:Performed By: #### LIPA #### [facility] ([address] [place] [address] VIREOSINOPHILS RELATIVE PERCENT BY AUTOMATED COUNT1.2 %Normal [facility] HospitalComment on above:Performed By: #### LIPA #### [facility] ([address] [place] [address] VIRErythrocyte distribution width (RBC) [Ratio]13.6 %Normal 11.5-15ProChristus Saint Michael HospitalComment on above:Performed By: #### LIPA #### [facility] ([facility]) [address] [place] [address]. [place] [address] VIRHematocrit (Bld) [Volume fraction]35.7 %Hsv49-32HkdHdasbwHocking Valley Community HospitalComment on above:Performed By: #### LIPA #### [facility] ([address] [place] [address] VIRHemoglobin (Bld) [Mass/Vol]11.8 g/jCCzt39-21ZvyYzfoyjHocking Valley Community HospitalComment on above:Performed By: #### LIPA #### [facility] ([address] [place] [address] VIRLYMPHOCYTES ABSOLUTE COUNT (10*3/UL) BY AUTOMATED COUNT1.6 10*3/uLNormal1.0-3.5[facility] Medical CenterComment on above:Performed By: #### LIPA #### [facility] ([address] [place] [address] VIRLYMPHOCYTES RELATIVE PERCENT BY AUTOMATED COUNT17.8 %Normal [facility] HospitalComment on above:Performed By: #### LIPA #### [facility] ([address] [place] [address] VIRMCH (RBC) [Entitic mass]31.4 xkQofxhh94-13KjnTvgdfyChristus Saint Michael HospitalComment on above:Performed By: #### LIPA #### [facility] ([address] [place] [address] VIRMCHC (RBC) [Mass/Vol]33.0 g/pRYefihd85-33UkpFqyycwChristus Saint Michael HospitalComment on above:Performed By: #### LIPA #### [facility] ([address] [place] [address] VIRMCV (RBC) [Entitic vol]95 tPMwnrqi69-218UfoXehdyj [facility]ont HospitalComment on above:Performed By: #### LIPA #### [facility] ([address] [place] [address] VIRMONOCYTES ABSOLUTE COUNT (10*3/UL) BY AUTOMATED COUNT0.5 10*3/uLNormal0.0-0.9[facility] HospitalComment on above:Performed By: #### LIPA #### [facility] ([address] [place] [address] VIRMONOCYTES RELATIVE PERCENT BY AUTOMATED COUNT6.0 %Normal [facility] HospitalComment on above:Performed By: #### LIPA #### [facility] ([address] [place] [address] VIRNEUTROPHILS ABSOLUTE COUNT BY AUTOMATED COUNT6.6 10*3/uL Normal1.5-6.6[facility] HospitalComment on above:Performed By: #### LIPA #### [facility] ([address] [place] [address] VIRNEUTROPHILS RELATIVE PERCENT BY AUTOMATED COUNT74.4 %Normal [facility] HospitalComsouthwest regional rehabilitation center on above:Performed By: #### LIPA #### [address] [place] [address] VIRPlatelet mean volume (Bld) [Entitic vol]7.0 fLNormal7-12 [facility] HospitalComment on above:Performed By: #### LIPA #### [facility] ([facility]) [address] [place] [address] [place] [address] VIRPlatelets (Bld) [#/Vol]200 10*3/iIYtejdf301-143KlaKdexzp [facility]ont HospitalComment on above:Performed By: #### LIPA #### [facility] ([address] [place] [address] VIRRBC COUNT3.74 X10E12/LLow4.1-5.7[facility] Comment on above:Performed By: #### LIPA #### [facility] ([address] [place] [address] VIRWBC (Bld) [#/Vol]8.9 10*3/uLNormal4-11ProChristus Saint Michael HospitalComment on above:Performed By: #### LIPA #### [facility] ([facility]) [address] [place] [address]. [place] [address] VIRFL SMALL BOWELon 31-70-5634WL SMALL BOWELFL SMALL BOWEL History: Vomiting. Bowel obstruction. Exam/Technique: Small bowel follow-through. Comparison: Precontrast images, 4 and 24 hour delayed images are obtained after oral contrast administration. Findings: There is an NG tube in place with decompressed stomach. The initial contract modeler images show abnormal bowel distention measuring up to 5.5 cm most pronounced leftmid abdomen. At 4 hour and 24-hour imaging contrast is noted within large bowel indicating incomplete obstruction. IMPRESSION: * Prominent small bowel with contrast reaching the colon at 4 hours indicating at most incomplete obstruction. Finalized by Geoffrey Rain DO on 12/31/2024 9:35 AMNormalRegency Hospital Cleveland East WITH AUTO DIFFERENTIALon [id number] ABSOLUTE COUNT (10*3/UL) BY AUTOMATED COUNT0.0 10*3/uLNormal0.0-0.2PZanesville City Hospital Comment on above:Performed By: #### CBCA ####[facility] ([address] VIRBASOPHILS RELATIVE PERCENT BY AUTOMATED COUNT0.3 %NormalHocking Valley Community HospitalComment on above:Performed By: #### CBCA ####[facility] ([address] [id number] VIRCELLAVISION DIFFERENTIAL TYPEAUTOMATED DIFFERENTIAL NormalProChristus Saint Michael HospitalComment on above:Performed By: #### CBCA ####[facility] ([address], [id number] VIREosinophils (Bld) [#/Vol]0.1 10*3/uLNormal0.0-0.4[facility] Comment on above:Performed By: #### CBCA ####[address], [place] VIREOSINOPHILS RELATIVE PERCENT BY AUTOMATED COUNT0.5 %NormalProChristus Saint Michael HospitalComment on above:Performed By: #### CBCA ####[facility] ([address], [id number] VIRErythrocyte distribution width (RBC) [Ratio]13.6 %Normal 11.5-15ProChristus Saint Michael HospitalComment on above:Performed By: #### CBCA ####[facility] ([id number] VIRHematocrit (Bld) [Volume fraction]41.1 %Somzfp92-06ZfmStshqgChristus Saint Michael HospitalComment on above:Performed By: #### CBCA ####[facility] ([address], [id number] VIRHemoglobin (Bld) [Mass/Vol] 13.7 g/lRMoqvmy92-32QjdKgnpqzChristus Saint Michael HospitalComment on above:Performed By: #### CBCA ####[facility] ([address], [id number] VIRLYMPHOCYTES ABSOLUTE COUNT (10*3/UL) BY AUTOMATED COUNT 2.3 10*3/uLNormal1.0-3.5PZanesville City HospitalComment on above:Performed By: #### CBCA ####[facility] ([address], [id number] VIRLYMPHOCYTES RELATIVE PERCENT BY AUTOMATED COUNT19.3 % NormalHocking Valley Community HospitalComment on above:Performed By: #### CBCA ####[facility] ([address], [id number] VIRMCH (RBC) [Entitic mass]31.3 wtQrtulk19-68XfmJrhesrChristus Saint Michael HospitalComment on above:Performed By: #### CBCA ####[facility] ([address], [id number] VIRMCHC (RBC) [Mass/Vol]33.3 g/dLNormal 32-36ProChristus Saint Michael HospitalComment on above:Performed By: #### CBCA ####[facility] ([address], [id number] VIRMCV (RBC) [Entitic vol]94 rULvwfpu16-430RvfPfwmbw [facility] HospitalComment on above:Performed By: #### CBCA ####[facility] ([address], [id number] VIRMONOCYTES ABSOLUTE COUNT (10*3/UL) BY AUTOMATED COUNT1.1 10*3/uLHigh0.0-0.9[facility] HospitalComment on above: Performed By: #### CBCA ####[facility] ([address], [id number] VIRMONOCYTES RELATIVE PERCENT BY AUTOMATED COUNT9.1 % NormalHocking Valley Community HospitalComment on above:Performed By: #### CBCA ####[facility] ([facility] [id number] VIRNEUTROPHILS ABSOLUTE COUNT BY AUTOMATED COUNT8.5 10*3/uLHigh1.5-6.6[facility] HospitalComment on above:Performed By: #### CBCA ####[facility] ([facility])[address] [place], [place] [address]T [id number] VIRNEUTROPHILS RELATIVE PERCENT BY AUTOMATED COUNT70.8 %NormalProChristus Saint Michael HospitalComment on above:Performed By: #### CBCA ####[facility] ([facility])[address] [place] [address] AVE.[place], [id number] VIRPlatelet mean volume (Bld) [Entitic vol]7.5 fLNormal7-12[facility] Medical CenterComment on above:Performed By: #### CBCA ####[facility] ([address], [id number] VIRPlatelets (Bld) [#/Vol]296 10*3/sGHaajyo311-892VkmStuhudHocking Valley Community HospitalComment on above:Performed By: #### CBCA ####[facility] ([facility])[address] [place] [address] AVE.[place], [id number] VIRRBC COUNT4.36 X10E12/LNormal4.1-5.7[facility] HospitalComment on above:Performed By: #### CBCA ####[facility] ([facility])[address] [place] [address] AVE.[place], [id number] VIRWBC (Bld) [#/Vol]12.1 10*3/uLHigh4-11[facility] HospitalComment on above:Performed By: #### CBCA ####[facility] ([facility])[address] [place], [place] [address]T [address], [id number] VIRCOMPREHENSIVE METABOLIC PANELon 25-65-6375Novtmog [Mass/Vol]3.8 g/dLNormal3.2-5.3PZanesville City HospitalComment on above:Performed By: #### LIPA #### [facility] ([place] [address] [place] [address] VIRALP [Catalytic activity/Vol]148 U/IZqba81-788LjrEonrmrChristus Saint Michael HospitalComment on above:Performed By: #### LIPA #### [facility] ([place] [address] [place] [address] VIRALT [Catalytic activity/Vol]16 U/LNormal<=40ProChristus Saint Michael HospitalComment on above:Performed By: #### LIPA #### [facility] ([place] [address] [address] VIRAnion gap [Moles/Vol]11 mmol/LNormal5-15Pro[facility] Saint Michael HospitalComment on above:Performed By: #### LIPA #### [facility] ([place] [address] [address] VIRAST [Catalytic activity/Vol]16 U/LNormal<=41ProChrist[facility] Saint Michael HospitalComment on above:Performed By: #### LIPA #### [facility] ([place] [address] [address] VIRBilirubin [Mass/Vol]0.9 mg/dLNormal0.3-1.2PZanesville City HospitalComment on above:Performed By: #### LIPA #### [facility] ([place] [address] [place] [address] VIRCalcium [Mass/Vol]8.7 mg/dLNormal8.5-10.5PZanesville City HospitalComment on above:Performed By: #### LIPA #### [facility] ([place] [address] [address] VIRChloride [Moles/Vol]107 mmol/KSxrhgd00-965MgnWjsjtgChristus Saint Michael HospitalComment on above:Performed By: #### LIPA #### [facility] ([address] [place] [address] VIRCO2 [Moles/Vol]25 mmol/YGlkgyq29-87QkfQgxuyb [facility] HospitalComment on above:Performed By: #### LIPA #### [facility] ([address] [place] [address] VIRCreatinine [Mass/Vol]1.14 mg/dLNormal0.70-1.20ProChristus Saint Michael HospitalComment on above:Result Comment: METHOD TRACEABLE TO IDMS STANDARDPerformed By: #### LIPA #### [facility] ([address] [place] [address] VIRGFR/1.73 sq M.predicted among non-blacks MDRD (S/P/Bld) [Vol rate/Area]70 mL/min/{1.73_m2}Normal>=60ProChristus Saint Michael HospitalComment on above:Result Comment: eGFR not reported due to non-numeric value for Creatinine. Reported eGFR is based on the CKD-EPI 2021 equation that does not use a race coefficient.Performed By: #### LIPA #### [facility] ([address] [place] [address] VIRGlucose [Mass/Vol]97 mg/vVCsvffa36-66JnnSnygetChristus Saint Michael HospitalComment on above:Performed By: #### LIPA #### [facility] ([address] [place] [address] VIRPotassium [Moles/Vol]3.9 mmol/LNormal3.5-5.0ProChristus Saint Michael HospitalComment on above:Performed By: #### LIPA #### [facility] ([address] [place] [address] VIRProtein [Mass/Vol]7.5 g/dLNormal6.0-8.0ProChristus Saint Michael HospitalComment on above:Performed By: #### LIPA #### [facility] ([address] [address] VIRSodium [Moles/Vol]143 mmol/QXgpciz679-508LokCtbrcb [facility] HospitalComment on above:Performed By: #### LIPA #### [address] [address] VIRUrea nitrogen [Mass/Vol]31 mg/dLHigh5-27ProChristus Saint Michael HospitalComment on above:Performed By: #### LIPA #### [facility] [address] [address] VIRLACTATE W/ REFLEXon [id number] W/REFLEX0.9 mmol/L Normal0.4-2.0ProChristus Saint Michael HospitalComment on above:Order Comment: Result did not trigger repeat Lactate,re-order if needed.Performed By: #### LIPA #### [facility] ([address] [address] VIRMAGNESIUMon 08-44-7605Vjfhlgmtd [Mass/Vol]1.8 mg/dLNormal 1.8-2.6ProChrist[facility] Saint Michael HospitalComment on above:Performed By: #### LIPA #### [address] [address] VIRXR CHEST 2 VWSon [id number] CHEST 2 VWSXR CHEST 2 VWS Clinical history: Abnormal CT abd pelvis with bibasilar opacities. Comparisons: 04/10/2023 through 10/15/2024. CT abdomen and pelvis 12/29/2024 is also available. Findings: Portable chest radiograph obtained. Heart size and pulmonary vasculature appear within normal limits. Prominent left-sided epicardial fat pad again seen. No definite pleural effusion or pneumothorax. Minimal linear opacities are present in the lung bases, left greater than right likely ref lecting areas of subsegmental atelectasis. No focal pulmonary parenchymal consolidation to suggest lobar pneumonia. Vagal stimulator device overlies left lateral chest wall. Nasogastric tube terminates within stomach. Mildly prominent gas-filled bowel loops are present in the upper abdomen. IMPRESSION: 1. Minimal linear opacities in the lung bases are present left greater than right likely reflectingareas of subsegmental atelectasis. No focal pulmonary parenchymal consolidation/pneumonia. Finalized by Luz Marina Louise MD on 12/30/2024 8:10 AMNormalRegency Hospital [facility] East WITH AUTO DIFFERENTIALon [id number] form neutrophils/100 WBC (Bld)6 %NormalOur Lady of Mercy Hospital on above:Result Comment: This is an appended report. These results have been appended to a previously prelimi nary verified report.Performed By: #### PTT #### [address] [address] VIRCELLAVISION DIFFERENTIAL TYPEMANUAL DIFFERENTIALNormal [facility] on above:Result Comment: This is an appended report. These results have been appended to a previously preliminary verified report.Performed By: #### PTT #### [address] [address] VIRCELLAVISION LYMPHOCYTES ABSOLUTE COUNT (10*3/UL) BY MANUAL COUNT0.9 10*3/uLLow1.0-3.5[facility] on above:Result Comment: This is an appended report. These results have been appended to a previously preliminary verified report.Performed By: #### PTT #### [facility] ([address] [address] VIRCELLAVISION LYMPHOCYTES RELATIVE PERCENT BY MANUAL COUNT4 % NormalOur Lady of Mercy Hospital on above:Result Comment: This is an appended report. These results have been appended to a previously preliminary verified report.Performed By: #### PTT #### [facility] ([address] [place] [address] VIRCELLAVISION MONOCYTES ABSOLUTE COUNT (10*3/UL) IN BLOOD BY MANUAL COUNT0.9 10*3/uLNormal0.0-0.9[facility] HospitalComsouthwest regional rehabilitation center on above: Result Comment: This is an appended report. These results have been appended to a previously preliminary verified report.Performed By: #### PTT #### [facility] ([address] [address] VIRCELLAVISION MONOCYTES RELATIVE PERCENT BY MANUAL COUNT4 % NormalProChristus Saint Michael HospitalComment on above:Result Comment: This is an appended report. These results have been appended to a previously preliminary verified report.Performed By: #### PTT #### [address] [address] VIRCELLAVISION NEUTROPHILS ABSOLUTE COUNT BY MANUAL COUNT20.3 10*3/uLHigh1.5-6.6ProChristus Saint Michael HospitalComment on above:Result Comment: This is an appended report. These results have been appended to a previously preliminary verified report.Performed By: #### PTT #### [address] [address] VIRCELLAVISION NEUTROPHILS RELATIVE PERCENT BY MANUAL COUNT86 %NormalProChristus Saint Michael HospitalComsouthwest regional rehabilitation center on above:Result Comment: This is an appended report. These results have been appended to a previously preliminary verified report.Performed By: #### PTT #### [facility] ([address] [address] VIRCELLAVISION RBC MORPHOLOGYNormalNormalProChristus Saint Michael HospitalComment on above:Result Comment: This is an appended report. These results have been appended to a previously preliminary verified report.Performed By: #### PTT #### [facility] ([address] [address] VIRErythrocyte distribution width (RBC) [Ratio]14.1 %Normal 11.5-15ProWayne Healthcare Main Campusca Springfield HospitalComment on above:Performed By: #### PTT #### [facility] ([address] [place] [address] VIRHematocrit (Bld) [Volume fraction]46.6 %Wefhva90-25 [facility] HospitalComment on above:Performed By: #### PTT #### [facility] ([address] [place] [address] VIRHemoglobin (Bld) [Mass/Vol]15.5 g/vFFiixif78-88LisDdksigChristus Saint Michael HospitalComment on above:Performed By: #### PTT #### [facility] ([address] [place] [address] VIRMCH (RBC) [Entitic mass]31.6 rjXjdjse16-10YttBmlzmkHocking Valley Community HospitalComment on above:Performed By: #### PTT #### [facility] ([address] [place] [address] VIRMCHC (RBC) [Mass/Vol]33.2 g/zASmbeko71-86OmzZcgsuoHocking Valley Community HospitalComment on above:Performed By: #### PTT #### [facility] ([address] [place] [address] VIRMCV (RBC) [Entitic vol]95 bFXlejim70-967BqgPnnrij [facility] HospitalComment on above:Performed By: #### PTT #### [facility] ([address] [place] [place] [address] VIRPlatelet mean volume (Bld) [Entitic vol]7.2 fLNormal7-12 [facility] HospitalComment on above:Performed By: #### PTT #### [facility] ([address] [place] [address] VIRPlatelets (Bld) [#/Vol]330 10*3/bHSbamod109-174EmoGghqhf [facility] HospitalComment on above:Performed By: #### PTT #### [facility] ([facility]) [address] [place], [place] [address] [address] VIRRBC COUNT4.90 X10E12/LNormal4.1-5.7ProChristus Saint Michael HospitalComment on above:Performed By: #### PTT #### [facility] ([address] [address] VIRWBC (Bld) [#/Vol]22.1 10*3/uLHigh4-11ProChristus Saint Michael HospitalComment on above:Performed By: #### PTT #### [facility] ([address] [place] [address] VIRCOMPREHENSIVE METABOLIC PANELon 99-75-1864Pwxwnik [Mass/Vol]4.9 g/dLNormal3.2-5.3PZanesville City HospitalComment on above: Performed By: #### CMP ####[facility] ([address] [address] VIRALP [Catalytic activity/Vol]196 U/VUven57-098 [facility] HospitalComment on above:Performed By: #### CMP ####[facility] ([address] [address] VIRALT [Catalytic activity/Vol]19 U/LNormal<=40ProChristus Saint Michael HospitalComment on above:Performed By: #### CMP ####[facility] ([place] [address] [place] [address] VIRAnion gap [Moles/Vol]15 mmol/LNormal5-15 [facility] HospitalComment on above:Performed By: #### CMP ####[facility] ([place] [address] [place] [address] VIRAST [Catalytic activity/Vol]19 U/LNormal<=41ProChristus Saint Michael HospitalComment on above:Performed By: #### CMP ####[facility] ([address] [place] [address] VIRBilirubin [Mass/Vol]0.4 mg/dLNormal0.3-1.2 [facility] HospitalComment on above:Performed By: #### CMP ####[facility] ([address] [place] [address] VIRCalcium [Mass/Vol]9.9 mg/dLNormal8.5-10.5PZanesville City HospitalComment on above: Performed By: #### CMP ####[facility] ([address] [place] [address] VIRChloride [Moles/Vol]102 mmol/HUbdwfd02-400 [facility] HospitalComment on above:Performed By: #### CMP ####[facility] ([address] [place] [address] VIRCO2 [Moles/Vol]24 mmol/FCvbcif49-56HhiQpxfgpZanesville City HospitalComment on above: Performed By: #### CMP ####[facility] ([address] [place] [address] VIRCreatinine [Mass/Vol]1.56 mg/dLHigh0.70-1.20 [facility] HospitalComment on above:Result Comment: METHOD TRACEABLE TO IDMS STANDARDPerformed By: #### CMP ####[facility] ([address] [place] [address] VIRGFR/1.73 sq M.predicted among non- blacks MDRD (S/P/Bld) [Vol rate/Area]48 mL/min/{1.73_m2}Low>=60Pro[facility] Saint Michael HospitalComment on above:Result Comment: eGFR not reported due to non-numeric value for Creatinine. Reported eGFR is based on the CKD-EPI 2020 equation that does not use a race coefficient.Performed By: #### CMP ####[facility] ([address] [address] VIRGlucose [Mass/Vol]126 mg/eHCojj09-73DmfVmrblrChristus Saint Michael HospitalComment on above:Performed By: #### CMP ####[facility] ([address] [address] VIRPotassium [Moles/Vol]4.4 mmol/LNormal3.5-5.0[facility] Comment on above:Performed By: #### CMP ####[facility] ([address] [address] VIRProtein [Mass/Vol]9.4 g/dLHigh 6.0-8.0[facility] HospitalComment on above:Performed By: #### CMP ####[facility] ([address] [address] VIRSodium [Moles/Vol]141 mmol/QGekzrc200-942KdsZzsvwt [facility] Comment on above:Performed By: #### CMP ####[facility] ([address] [address] VIRUrea nitrogen [Mass/Vol]28 mg/dL High5-27ProChristus Saint Michael HospitalComment on above:Performed By: #### CMP ####[facility] ([address] [address] VIRCT ABDOMEN AND PELVIS W CONTon [id number] ABDOMEN AND PELVIS W CONTCT ABDOMEN AND PELVIS W CONT CT ABDOMEN AND PELVIS W CONT CLINICAL HISTORY:oral and iv contrast - vomiting hx or sbo COMPARISON: None. TECHNIQUE: CT abdomen and pelvis was performed utilizing the standard protocol following the uneventful administration of 100 cc Omnipaque 300 nonionic intravenous contrast. Coronal and sagittal reformatted images were generated and reviewed. Automated exposure control was utilized. FINDINGS: Dependent bibasilar pulmonary parenchymal opacities. Mild cardiomegaly. Unremarkable liver, gallbladder, spleen, adrenal glands, pancreas, right kidney. Chronic appearing subcapsular collection left kidney with peripheral calcifications. No acute appearing occlusion of the major visceral vasculature. No dilatation or wall thickening of the large bowel. Nonvisualized appendix. Left abdominal enteroenteric anastomosis [capacious juxta anastomotic bowel] dilated proximal smallbowel,. 4.4 cm, gradual transition to nondistended mid to distal small bowel, no solitary high-grade transition point. No acute appearing occlusion of the major visceral vasculature. No free fluid or fluid collections. No aggressive osseous lesions. Diffuse idiopathic skeletal hyperostosis, rigid spine. Suspected moderate thecal sac stenosis at L1-2 and L2-3 IMPRESSION: 1. Dilated proximal small bowel with gradual transition to nondistended small bowel in the mid to distal ileum, no solitary high-grade transition point to definitively suggest obstruction. Gastrografin challenge/small bowel follow- through may be helpful, consider as appropriate. All CT scans at this facility use dose modulation, iterative reconstruction, and/or weight based dosing when appropriate to reduce radiation dose to as low as reasonably achievable. Finalized by Edmar Dos Santos MD on 12/29/2024 9:31 PMNormalProChristus Saint Michael HospitalLACTATEon [id number] [Moles/Vol]2.2 mmol/LHigh0.4-2.0[facility] HospitalComment on above:Performed By: #### LACTA ####[facility] ([address] [address] VIRLACTATE W/ REFLEX on [id number] W/REFLEX2.8 mmol/LHigh0.4-2.0[facility] Comment on above:Performed By: #### PTT #### [facility] ([address] [address] VIRLIPASEon [id number] [Catalytic activity/Vol]44 U/L Bsyi75-05IupWpibpmHocking Valley Community HospitalComment on above:Performed By: #### LIPA ####[facility], [place] VIRMAGNESIUMon 13-31-2578Whyxzbfyk [Mass/Vol]2.0 mg/dLNormal1.8-2.6ProChristus Saint Michael HospitalComment on above:Performed By: #### MG ####[facility] ([address] [place] [address] VIRTROP I, HIGH SENSITIVITY 1 HOURon [id number] I, HIGH SENSITIVITY2 ng/LNormal<21 ProMWhite Memorial Medical CenterComment on above:Performed By: #### TNIHS1 ####[facility] ([address] [place] [address] VIRTROPONIN I, HIGH SENSITIVITY 0 HOURon [id number] I, HIGH SENSITIVITY3 ng/LNormal<21ProChristus Saint Michael HospitalComment on above:Performed By: #### TNIHS0 ####[facility] ([address] [place] [address] VIRPerformed By: #### TNIHS1 ####[facility] ([address] [address] VIRXR ABDOMEN AP 1 VWon [id number] ABDOMEN AP 1 VWXR ABDOMEN AP 1 VW EXAM: XR ABDOMEN AP 1 VW CLINICAL INFORMATION: NG tube Placement. COMPARISON: 10/15/2024, 12/29/2024 FINDINGS: There is a gastric tube with the tip in the air-filled distended stomach. Dilated small bowel loopsare noted, compatible with small bowel obstruction. IMPRESSION: 1. Gastric tube with the tip in the air-filled distended stomach. 2. Dilated small bowel and air-filled distended stomach, compatible with small bowel obstruction. Finalized by Rk Borges MD on 12/29/2024 10:31 PMNormalProChristus Saint Michael HospitalFecal Panc Elastaseon [id number] Elastase>800Normal>=100Mer[facility] Caruthers HospitalComment on above:Result Comment: (NOTE)REFERENCE INTERVAL: Pancreatic Elastase Fecal by Immunoassay Less than 100 ug/g............Severe insufficiency 100 - 199 ug/g................Moderate insufficiency 200 ug/g or g reater...........NormalINTERPRETIVE INFORMATION: Pancreatic Elastase Fecal by ImmunoassayReference intervals do not apply for infants less than one monthold.Performed By: [facility] [place] [address]Pgheipszyc Director: Subhash Mcclure MD, PhDCLIA Number: [id number] Performed By: #### APEF ####[address] [address] Lab Director: Ken Sidhu MD#### CDPBELLO, STLPCR ####[facility] [address] [place], [place] [id number] Lab Director: Chencho Olvera, [address] [place] [id number] Lab Director: Moose Peck [facility] 12-19-2024 Campylobacter sp PCRNEGATIVE: No Campylobacter spp. (jejuni or coli) DNA DetectedNormalCUniversity Hospitals Samaritan Medical CenterComment on above:Performed By: #### APEF ####[address] [address] Lab Director: Ken Sidhu MD#### CDPCR, STLPCR ####[facility] [address] [place], [place] [id number] Lab Director: Chencho Olvera, [address] [place] [address] Lab Director: David Montez MDE coli enterotox PCRNEGATIVE: No Enterotoxigenic E. coli (ETEC) Heat-labile and heat-stable (LT/ST)NormalEECNEG [facility]Com[facility] on above:Result Comment: DNA DetectedPerformed By: #### APEF ####[facility] [address] [place] [address] Lab Director: Ken Sidhu MD#### CDPCR, STLPCR ####[facility] [address] [place] [address] Lab Director: Chencho Olvera[address] [place] [address] Lab Director: Lori Peckiomonas sp PCRNegativeNormal PLENEGMercy Caruthers HospitalComment on above:Performed By: #### APEF ####[facility] [address] [place] [address] Lab Director: Ken Sidhu MD#### CDPBELLO, STLPCR ####[facility] [place] [address] Lab Director: Chencho Olvera, [address] [place] [address] Lab Director: GIN Peckalanaella sp PCRNegativeNormalSALNEGMercy Caruthers HospitalComment on above:Performed By: #### APEF ####[facility] [address] [place] [address] Lab Director: Ken Sidhu MD#### LISSY, STLPCR ####[facility] [address] [place] [address] Lab Director: Chencho Olvera, [address] , [place] [address] Lab Director: GIN Peckhigatoxin gene PCRNegative NormalSTXNEGMercy Caruthers HospitalComment on above:Performed By: #### APEF ####[facility] [address] [place] [address] Lab Director: Ken Sidhu MD#### CDPCR, STLPCR ####[facility] [address] [place] [address] Lab Director: Chencho Olvera, [address] [place], [place] [address] Lab Director: Love Peck PCRNegativeNormalSHIOhioHealth Pickerington Methodist HospitalComment on above:Performed By: #### APEF ####[facility] [address] [place] [address] Lab Director: Ken Sidhu MD#### CDPCR, STLPCR ####[facility] [address] [place] [address] Lab Director: Chencho Olvera, [address] [place] [id number] Lab Director: Emmanuelle Peck sp PCRNEGATIVE: No Vibrio (V. vulnificus, V, parahaemolyticus and V. cholerae) DNANormalVIBNEGKettering HealthComment on above:Result Comment: DetectedPerformed By: #### APEF ####[facility] [address] [place] [address] Lab Director: Ken Sidhu MD#### LISSY, STLPCR ####[facility] [address] [place] [address] Lab Director: Chencho Olvera[address] , [place] [id number] Lab Director: Markie Peck gene PCRNegativeNoalYEROhioHealth Pickerington Methodist Hospital Comment on above:Performed By: #### APEF ####[facility] [address] [place] [address] Lab Director: Ken Sidhu MD#### CDPCR, STLPCR ####[facility] [address] [place] [phone] Director: Chencho Olvera, [facility] [place] [address] , [place] [address] Lab Director: David Montez MD Ambulatory Visit Summaryon [id number] Visit SummaryAmbulatory Visit Summary AMOL TAYLOR :1955 Visit Date:12/18/2024 Ambulatory Visit Instructions Your Diagnosis Urinary retention BPH with urinary obstruction Prostate cancer screening Other obstructive and reflux uropathy Your Care Team Attending Physician - REESE Patrick APRN, Ana Tanner Primary Care Physician - CARSON DIOR MD This Is Your Medications List acetaminophen albuterol (albuterol 90 mcg/inh inhalation powder) benzonatate (benzonatate 100 mg Cap) cholecalciferol (Vitamin D 1000 intl units (25 mcg) Tab) cyanocobalamin (Vitamin B-12 1000 mcg oral tablet) diazepam finasteride (finasteride 5 mg Tab) hydrOXYzine (hydrOXYzine hydrochloride 25 mg Tab) hydrocortisone topical (hydrocortisone Top 2.5% Crm) lacosamide (lacosamide 150 mg oral tablet) lamotrigine (lamotrigine 200 mg Tab) latanoprost ophthalmic (latanoprost 0.005% ophthalmic emulsion) levetiracetam (levETIRAcetam 750 mg oral tablet, dispersible) levetiracetam (levetiracetam 1000 mg oral tablet) linaclotide (Linzess 145 mcg oral capsule) lorazepam (LORazepam 0.5 mg Tab) magnesium oxide (magnesium oxide 400 mg Tab) meclizine (meclizine 25 mg Tab) melatonin (melatonin 3 mg Tab) metronidazole (MetroNIDAZOLE 500 mg Tab) olopatadine ophthalmic (olopatadine Opth 0.2% Socorro) ondansetron (ondansetron 4 mg Tab) pantoprazole (Pantoprazole [address] Tab) polyethylene glycol 3350 (MiraLax) primidone (primidone 250 mg Tab) primidone (primidone 250 mg Tab) senna (senna 8.6 mg Tab) tamsulosin (tamsulosin 0.4 mg Cap) Procedures Performed Exploratory laparotomy (06/14/2021), Hydrocelectomy (10/21/2015), Left shoulder (1990), Colonoscopy, Small bowel resection, Vagus nerve stimulator. Discharge Vitals Temperature (Tympanic) 36.9 ???C Heart Rate (Peripheral) 86 Respiratory Rate 16 Blood Pressure 128/60 What to do next Scheduled Follow-Up Appointments July. 2025 10:20 AM EDT With: REESE Patrick APRN, Ana Tanner Where: [facility] [address] [address]- Medications What How Much When Instructions Unchanged acetaminophen 650 Milligram By Mouth Every 4 hours as needed for as needed for pain Unchanged albuterol (albuterol 90 mcg/ inh inhalation powder) 2 Inhalation Inhalation Every 4 hours Unchanged benzonatate (benzonatate 100 mg Cap) 1 Capsules By Mouth 3 times a day Unchanged cholecalciferol (Vitamin D 1000 intl units (25 mcg) Tab) 1 Tablets By Mouth Every day Unchanged cyanocobalamin (Vitamin B-12 1000 mcg oral tablet) 1 Tablets By Mouth Every day Unchanged diazepam 12.5-20mg kit By rectum Once PRN for seizure activity >15 minutes Unchanged finasteride (finasteride 5 mg Tab) 1 Tablets By Mouth At bedtime Unchanged hydrocortisone topical (hydrocortisone Top 2.5% Crm) daily Topical 2 times a day Unchanged hydrOXYzine (hydrOXYzine hydrochloride 25 mg Tab) 1 Tablets By Mouth Every 12 hours as needed for as needed for itching Unchanged lacosamide (lacosamide 150 mg oral tablet) 1 Tablets By Mouth 2 times a day Unchanged lamotrigine (lamotrigine 200 mg Tab) 2 Tablets By Mouth Once a day (in the morning) Unchanged latanoprost ophthalmic (latanoprost 0.005% ophthalmic emulsion) 1 Drops Both eyes At bedtime Unchanged levetiracetam (levetiracetam 1000 mg oral tablet) 2 Tablets By Mouth At bedtime Unchanged levetiracetam (levETIRAcetam 750 mg oral tablet, dispersible) 2 Tablets By Mouth Every day Unchanged linaclotide (Linzess 145 mcg oral capsule) 1 Capsules By Mouth Every day Unchanged lorazepam (LORazepam 0.5 mg Tab) 1 Tablets By Mouth Every 8 hours as needed for Other (see comment) Unchanged magnesium oxide (magnesium oxide 400 mg Tab) 1 Tablets By Mouth Every day Unchanged meclizine (meclizine 25 mg Tab) 1 Tablets By Mouth Every 8 hours as needed for Dizziness FOR DIZZINESS Unchanged melatonin (melatonin 3 mg Tab) 1 Tablets By Mouth Once a day (at bedtime) as needed for for insomnia Unchanged metronidazole (MetroNIDAZOLE 500 mg Tab) 1 Tablets By Mouth 3 times a day Unchanged olopatadine ophthalmic (olopatadine Opth 0.2% Socorro) 1 Drops Ophthalmic Every day Unchanged ondansetron (ondansetron 4 mg Tab) 1 Tablets By Mouth Every 6 hours as needed for Nausea/Vomiting Unchanged pantoprazole (Pantoprazole [address] Tab) 40 Milligram By Mouth Every day Unchanged polyethylene glycol 3350 (MiraLax) 17 Gram By Mouth Every day Unchanged primidone (primidone 250 mg Tab) 1 Tablets By Mouth Once a day (in the morning) Unchanged primidone (primidone 250 mg Tab) 1.5 Tablets By Mouth Once a day (at bedtime) Unchanged senna (senna 8.6 mg Tab) 1 Tablets By Mouth 2 times a day Unchanged tamsulosin (tamsulosin 0.4 mg Cap) 1 Capsules By Mouth 2 times a day Allergies Nuts (Unknown) clindamycin (hives) penicillins (hives) Problems Ongoing - Any problem that you are currently receiv (more content not included)...[facility] HospitalC difficile tox, PCRon 12-18-2024 difficile tox, PCRNEGATIVE: C difficile tcdB nucleic acid not detected by RT-PCR.NormalCDTNEGMercy Windham HospitalComment on above:Performed By: #### APEF ####[facility] [address] [place], [place] [id number] Lab Director: Ken Sidhu MD#### LISSY, [facility] KAS[facility] HOSPITALCR ####[facility] [address] [place] [address] Lab Director: Chencho Olvera, [facility] [place] [address] , [place] [address] Lab Director: David Montez MDUrology Office/Clinic Noteon [id number] Office/Clinic NoteUrology Office/Clinic Note Chief Complaint Pt is here for follow up HPI Staff Pt is a 69 year old male here for a 1 month f/u with PVR. 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 Portions of this record may have been created with voice recognition artificial intelligence software, specifically [employer] and or [employer]. Substitutions may have occurred due to the inherent limitations of voice recognition and artificial intelligence software. Review of Systems PHQ Score Initial Depression Screen Score: 0 SCORE Physical Exam Vitals & Measurements T: 36.9 ???C(Tympanic) HR: 86(Peripheral) RR: 16 BP: 128/60 General: Well developed, well nourished, in no acute distress. Resting comfortably in WC. Assessment/Plan PRW pt here w/ caregiver today who does assist in providing hx 1. Urinary retention (R33.9: Retention of urine, unspecified) Pt was hospitalized d/t bowel obstruction early October. Pt was in ICU, feels it was put in out of convenience/monitoring purposes. Sister/aide note that he has never really had significant urinary problems at baseline. Has pulled out catheter a could times, does not sound like TOV was attempted. Will removed 11/06/24 IO. No specimen for UA today, voided just prior to leaving [place]. Bladder scan IO today 31 ml emptying well w/o complaints Per caregiver, pt did initially have some incontinence after will removal, which has improved. Occasional bouts of UUI, but staff feels that this is associated with him waiting longer periods of time between voids. We discussed timed voiding to prevent this. -timed voids -f/u July 2025 as planned, sooner if needed Ordered: 16658 Measure Post Void residual urine and/or bladder capacity by US- non-imaging Body Mass Index (BMI) documented 3008F Current tobacco non-user 1036F Depression Screening Negative 3352F Influenza immunization status assessed 1030F Medication list documented in medical record 1159F Most recent diastolic blood pressure <80 mm Hg 3078F Patient screen for fall risk: no falls in last year or 1 fall with no injury in last year 1101F Review of all meds by a prescribing practitioner or clinical pharmacist documented in EHR 1160F Systolic BP <130 mm Hg (Most Recent) 3074F 2. BPH with urinary obstruction (N40.1: Benign prostatic hyperplasia with lower urinary tract symptoms) taking tamsulosin 0.4 mg BID and finasteride 5 mg QD w/o SEs. overall happy w/ his urinary sxs at baseline. Does not wish to make any changes -cont finasteride and tamsulosin Ordered: 51122 Measure Post Void residual urine and/or bladder capacity by US- non-imaging Body Mass Index (BMI) documented 3008F Current tobacco non-user 1036F Depression Screening Negative 3352F Influenza immunization status assessed 1030F Medication list documented in medical record 1159F Most recent diastolic blood pressure <80 mm Hg 3078F Patient screen for fall risk: no falls in last year or 1 fall with no injury in last year 1101F Review of all meds by a prescribing practitioner or clinical pharmacist documented in EHR 1160F Systolic BP <130 mm Hg (Most Recent) 3074F 3. Prostate cancer screening (Z12.5: Encounter for screening for malignant neoplasm of prostate) PSA 04/13/21 - 0.60 03/21/23 - 0.30 07/18/24 - 0.49 -PSA due July 2025 appt Ordered: 47141 Measure Post Void residual urine and/or bladder capacity by US- non-imaging Body Mass Index (BMI) documented 3008F Current tobacco non-user 1036F Depression Screening Negative 3352F Influenza immunization status assessed 1030F Medication list documented in medical record 1159F Most recent diastolic blood pressure <80 mm Hg 3078F Patient screen for fall risk: no falls in last year or 1 fall with no injury in last year 1101F PSA Screen, Total Review of all meds by a prescribing practitioner or clinical pharmacist documented in EHR 1160F Systolic BP <130 mm Hg (Most Recent) 3074F Other obstructive and reflux uropathy (N13.8: Other obstructive and reflux uropathy) Follow-up With When Contact Information [employer] DIR, SENIOR BUSINESS MANAGER-C, Ana X, FAM, URL Additional Instructions: July 2025 w/ PSA Patient Education Acute Urinary Retention, Male Benign Prostatic Hyperplasia Cancer Screening for Males Problem List/Past Medical History Ongoing Acute kidney injury Anemia Anxiety disorder Bowel obstruction BPH with urinary obstruction Cerebral palsy Disorder of male genital organ Diverticulitis Epilepsy Gastroesophageal reflux disease Glaucoma Hernia of abdominal cavity Hyperlipidemia Leukocytosis Major depression, single episode Musc (more content not included)...[facility] HospitalComment on above:Result Comment: Electronically Signed By: REESE Patrick APRN, Ana Tanner\.martin\Date and Time Signed: 12/18/24 10:35 EDTC difficile tox, PCRon 12-17-2024 Specimen Description.FECESNormalMercy Windham HospitalComment on above:Performed By: #### APEF ####[facility] [address] [place] [address] Lab Director: Ken Sidhu MD#### CDPCR, STLPCR ####[facility] [address] [place] [address] lab Director: Chencho Olvera, [address] [place] [address] lab Director: Bobby Peck [id number] (INTMAL) AMOL TAYLOR ([id number]) 1955 M Date Time Provider Department 12/16/24 UMA CLARK During your visit today, we recorded the following information about you: Jaquelin Donovan 12/16/2024 4:12 PM Signed [facility] is calling Uma Clark MD today to request all orders to be faxed over to them so patient can go somewhere closer to home. Please advise. [phone] Patient has been identified by name and birthdate. Duration of symptoms: N/A Person calling: Call at: [phone] Was an appointment scheduled: No Closing statement: Results or non-symptom based questions: Thank you for calling [facility], your call will be returned within the next business day. Thank you, Trace Jones RN 12/16/2024 4:45 PM Signed Pt was seen in the office 12/11/2024. KUB and stool samples ordered. KUB results and stool sample orders were faxed to the number provided below. [phone] Trace Woodruff RN Allergies As of Date: 12/16/2024 Noted Allergy Reaction bleach [Other] 02/23/2005 CLINDAMYCIN 02/23/2005 2 - Rash PENICILLINS 02/23/2005 7 - Swelling Date Reviewed: 12/11/2024 Reviewed by: Elsie Joya MA - Fully Assessed Prescriptions as of 12/22/2024 - albuterol HFA (PROVENTIL HFA, VENTOLIN HFA) 90 mcg/actuation inhaler Inhale 2 Puffs as instructed every 4 hours as needed. - benzonatate (TESSALON PERLE) 100 mg capsule Take 100 mg by mouth. - hydrOXYzine pamoate (VISTARIL) 25 mg capsule Take 25 mg by mouth three times a day as needed. - MELATONIN ORAL Take by mouth. - carbamide peroxide (EAR DROPS) 6.5 % otic solution 4 Drops once every month. - linaclotide (LINZESS) 145 mcg capsule Take 145 mcg by mouth daily at 6 am. Take capsule on an empty stomach at least 30 minutes before a meal at the same time each day. Capsule should be swallowed whole. DO NOT chew or crush - MAGNESIUM OXIDE ORAL Take 400 mg by mouth once daily. - ONDANSETRON HCL ORAL Take 4 mg by mouth. - calcium carbonate (FLAVOR CHEWS ANTACID ORAL) Take 500 mg by mouth. - latanoprost (XALATAN) 0.005 % ophthalmic solution 1 Drop daily at bedtime. - levETIRAcetam (KEPPRA) 750 mg tablet Take 750 mg by mouth two times a day. - Sennosides (SENNA) 8.6 mg cap Take by mouth. - cyanocobalamin (VITAMIN B-12) 1,000 mcg tab Take 1,000 mcg by mouth once daily. - ergocalciferol, vitamin D2, (VITAMIN D2 ORAL) Take 1,000 Units by mouth. - tamsulosin ER (FLOMAX) 0.4 mg cap Take 1 capsule by mouth twice daily. 30 minutes after the same meal each day. - polyethylene glycol 3350 (MIRALAX, GLYCOLAX) 17 gram packet Take 1 Packet by mouth once daily as needed (constipation). - levETIRAcetam (KEPPRA) 1,000 mg tablet Take 1,500 mg by mouth twice daily. - lacosamide (VIMPAT) 150 mg tab Take by mouth twice daily. 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 - finasteride (PROSCAR) 5 mg tablet Take 1 tablet by mouth once daily. - calcium carbonate (CALCIUM 600) 600 mg (1,500 mg) tab Take 1 tablet by mouth twice daily. - Loperamide HCl (IMODIUM) 2 mg tab Take 1 tablet by mouth as needed (Patient takes two capsules on onset, one capsule after each loose stool and up to 4 in 24 hours). - inulin-chromium picolinate (FIBER SELECT GUMMIES) 2-100 gram-mcg chew Patient takes 5mg gummies, once gummy twice daily - Ibuprofen 200 mg cap Take 2 capsules by mouth every 4 hours (for headaches, muscle pain or fever over 100 degrees) - ondansetron orally disintegrating (ZOFRAN ODT) 4 mg disintegrating tablet Take 1 tablet by mouth every 8 hours as needed. - lorazepam(ATIVAN 0.5 MG TAB) Take one(1) tablet every eight(8) hours as needed for seizures - lamotrigine(LAMICTAL 200 MG TAB) take two 2 tablets in am and three(3)tablets in pm - PRIMIDONE 250 MG TAB Take 250 mg by mouth once daily. also1 1/2 at bed time Problem List As Of Date 12/16/2024 Noted Resolved Toxic uninodular goiter without mention of thyr*02/23/2005 Tibialis posterior rupture [S86.119A] 06/10/2012 Osteoarthrosis [M19.90] 06/10/2012 Small bowel obstruction due to adhesions (HCC) *04/26/2014 11/29/2018 Severe intellectual disability [F72] 10/20/2013 Closed fracture of shaft of fibula [S82.409A] 11/24/2014 11/26/2018 Small bowel obstruction (HCC) [K56.609] 10/18/2013 Malnutrition of moderate degree (HCC) [E44.0] 08/10/2016 Seizure (HCC) [R56.9] 10/18/2013 Urinary retention [R33.9] 11/24/2018 BPH (benign prostatic hyperplasia) [N40.0] 07/24/2018 Incisional hernia without obstruction or gangre*10/11/2016 AFTAB (obstructive sleep apnea) [G47.33] 10/11/2016 Third degree hemorrhoids [K64.2] 10/11/2016 Tic disorder, unspecified [F95.9] 07/24/2018 Balance problems [R26.89] 11/26/2018 Epileptic seizures (HCC) [G40.909] 12/14/2015 (more content not included)... [id number] Visit ([facility]ST[facility]) AMOL TAYLOR ([id number]) 1955 M Date Time Provider Department 12/11/24 2:15 PM UMA CLARK [facility] During your visit today, we recorded the following information about you: Pulse Blood pressure Weight Height 72/minute 138/82 100.2 kg 1.676 m Uma Clark MD 12/13/2024 7:25 AM Signed FOLLOW UP OFFICE VISIT REASON FOR VISIT: Follow up HPI: Amol Taylor is a 69 year old male who presents for follow up with manager care management from group home with unfortunately multiple episodes of partial SBOs requiring multiple admissions to the hospital with fortunately none since October 2024 although patient has been having loose stools since end of October 2024 with no constipation, rectal bleeding. The loose stools are at times occurring nocturnally as well with no abdominal pain per patient and hydroelectric station operator. Patient had been on antibiotics for a urethra infection per hydroelectric station operator over the past several months. Past Clinical Work-up: Last office visit 05/22/2024: IMPRESSION/DISCUSSION/PLAN: Recurrent partial SBO's with last one 04/19/24 at [facility] in [place] with recommendation being that of implementing miralax 17 grams at the time that he develops constipation as this seems to be the precipitating factor to the onset of the recurrent partial SBO. Continue bowel regimen with senna and linzess. Follow up 6 months. SBFT 04/21/2024: No evidence of small-bowel obstruction. CTAP 04/19/2024: 1. Diffuse small bowel dilation. There is no true transition point. 2. Abrupt transition in the transverse colon. A mass is not appreciated. 3. Appearance of the left kidney is unchanged. Acute Abd Series 06/13/23: 1. No acute cardiopulmonary process. 2. Scattered gas-filled large/small bowel loops throughout the abdomen and pelvis with several mildly distended gas-filled small bowel loops up to 4 cm. Findings may represent ileus versus partial/intermittent SBO. MBS 04/16/2023: IMPRESSION: 1. Abnormal swallow study as noted above with significant stasis in the hypopharynx at the level of the large osteophyte at C5/6 vertebrae. 2. Please correlate with dedicated speech pathology report for additional details and recommendations. Labs 04/30/2024: Vitamin B-12 232 - 1245 pg/mL 949 WBC 3.5 - 11.3 k/uL 7.5 RBC 4.21 - 5.77 m/uL 3.62 Low Hemoglobin 13.0 - 17.0 g/dL 11.6 Low Hematocrit 40.7 - 50.3 % 35.6 Low MCV 82.6 - 102.9 fL 98.3 MCH 25.2 - 33.5 pg 32 MCHC 28.4 - 34.8 g/dL 32.6 RDW 11.8 - 14.4 % 12.2 Platelets 138 - 453 k/uL 252 MPV 8.1 - 13.5 fL 10.3 NRBC Automated 0.0 per 100 WBC 0 Neutrophils % 36 - 65 % 59 Lymphocytes % 24 - 43 % 23 Low Monocytes % 3 - 12 % 10 Eosinophils % 1 - 4 % 7 High Basophils % 0 - 2 % 1 Immature Granulocytes % 0 % 0 Neutrophils Absolute 1.50 - 8.10 k/uL 4.42 Lymphocytes Absolute 1.10 - 3.70 k/uL 1.7 Monocytes Absolute 0.10 - 1.20 k/uL 0.76 Eosinophils Absolute 0.00 - 0.44 k/uL 0.5 High Basophils Absolute 0.00 - 0.20 k/uL 0.04 Immature Granulocytes Absolute 0.00 - 0.30 k/uL 0.03 Sodium 136 - 145 mmol/L 138 Potassium 3.7 - 5.3 mmol/L 4.3 Chloride 98 - 107 mmol/L 107 CO2 20 - 31 mmol/L 21 Anion Gap 9 - 16 mmol/L 10 Glucose 74 - 99 mg/dL 86 BUN 8 - 23 mg/dL 12 CREATEXT 0.70 - 1.20 mg/dL 0.9 Est, Glom Filt Rate >60 mL/min/1.73m2 >90 BUN/Creatinine Ratio 9 - 20 13 Calcium 8.6 - 10.4 mg/dL 8.9 Total Protein 6.6 - 8.7 g/dL 7.2 Albumin 3.5 - 5.2 g/dL 3.8 Albumin/Globulin Ratio 1.0 - 2.5 1.1 Total Bilirubin 0.00 - 1.20 mg/dL <0.2 Alkaline Phosphatase 40 - 129 U/L 156 High ALT 10 - 50 U/L 16 AST 10 - 50 U/L 13 ALLERGIES Allergen Reactions Bleach [Other] Clindamycin Rash Penicillins Swelling PAST MEDICAL HISTORY Diagnosis Date Closed fracture of shaft of fibula 11/24/2014 Mental retardation Nontoxic uninodular goiter stable Seizure disorder (HCC) follows with neuro Dr. Shawnee Butler [place] PAST SURGICAL HISTORY Procedure Laterality Date INSERT PICC 05/11/2014 LAP SM BOWEL RESECTION W/ANASTOMOSIS, SNGL 10/2013 fascia closed, skin open for SBO MIDLINE INSERTION/CONSULT 05/04/2014 MIDLINE INSERTION/CONSULT 08/08/2016 PAST SURGICAL HISTORY OF 7 months old abd surgery PAST SURGICAL HISTORY OF fracture clavicle PAST SURGICAL HISTORY OF VAGAL NERVE STIMULATOR for seizure Px PAST SURGICAL HISTORY OF 05/05/14 Exploratory laparotomy, small bowel resection and anastomosis , extensive lysis of adhesions FAMILY HISTORY Problem Relation Age of Onset Ischemic Heart Disease Mother other (Thyroid Ca) Mother other (Multiple Myeloma) Mother other (DM) Mother other (htn) Mother other (Lung Ca) Father smoker other (A fib) Brother other (Heart attack) Brother other (HTN) Sister other (DM) Sister other (leukemia) Ma (more content not included)...NormalTr[facility] West CampusXR ABDOMEN 3V KUB W/OBLIQUESon [id number] ABDOMEN 3V KUB W/OBLIQUES* * *Final Report* * * DATE OF EXAM: Dec 11 2024 4:03PM CHX [id number] - XR ABDOMEN 3V KUB W/OBLIQUES / PROCEDURE REASON: Diarrhea, unspecified type * * * * Physician Interpretation * * * * EXAMINATION: XR ABDOMEN 3V KUB W/OBLIQUES CLINICAL HISTORY: Diarrhea, unspecified type Technique: XR ABDOMEN 3V KUB W/OBLIQUES -- NOT APPLICABLE with 3 views on 4 images Comparison: Outside institution CT abdomen/pelvis dated 06/20/2023. Abdomen x-rays dated 11/28/2018. RESULT: Nonobstructive bowel gas pattern. No evidence of intraperitoneal free air. No abnormal intra-abdominal calcification is seen projecting over the expected locations of the kidneys, ureters or urinary bladder, however note that the renal shadows are mostly obscured by overlying bowel contents. The imaged lung bases are clear. No acute osseous abnormality. IMPRESSION: 1. No acute radiographic finding in the abdomen. Terrapin Fisher: PSCB Transcribe Date/Time: Dec 12 2024 3:52P Dictated by : NIKA HINOJOSA MD This examination was interpreted and the report reviewed and electronically signed by: NIKA HINOJOSA MD on Dec 12 2024 3:54PM EST [id number] Health System West CampusUrology Office/Clinic Note on [id number] Office/Clinic NoteUrology Office/Clinic Note Chief Complaint urinary retention HPI Staff Pt is a 69 year old male here for urinary retention Dx: BPH with urinary obstruction and bowel obstruction. Previous PSA done 03/21/23 - 0.30 Current PSA done 07/18/24- 0.49 Tamsulosin BID and Finasteride 5mg qd. PSA done 03/21/23 - 0.30 PSA done 07/18/24- 0.49 some redness around catheter site there hoping to remove today History of Present Illness I have reviewed and verified the staff HPI to be accurate for this encounter. Portions of this record may have been created with voice recognition artificial intelligence software, specifically [employer] and or [employer]. Substitutions may have occurred due to the inherent limitations of voice recognition and artificial intelligence software. For this visit the chief historian for this dependent patient is sister, his guardian Review of Systems PHQ Score Initial Depression Screen Score: 0 SCORE Physical Exam Vitals & Measurements HR: 95(Peripheral) BP: 127/66 HT: 160 cm HT: 63 in General: Well developed, well nourished, in no acute distress. Resting comfortably in wheelchair today. Primary historian today is his sister. Aide is also present in office today. Assessment/Plan PRW pt, last OV w/ ELLIS 07/21/24 Review of external hospital notes/imaging 1. Urinary retention (R33.9: Retention of urine, unspecified) Pt was hospitalized d/t bowel obstruction early October. Pt was in ICU, feels it was put in out of convenience/monitoring purposes. Sister/aide note that he has never really had significant urinary problems at baseline. Has pulled out catheter a could times, does not sound like TOV was attempted. BMs daily, no pain. No UTI sxs today. We discussed TOV today, risk of recurrence of retention. Sister would like to move forward w/ this. Will removed in office today, clear orders sent back to [place]. Increase fluid intake, avoid bladder irritants ER for fever, NV, severe flank pain. -timed voids -straight cath for for PVR if no void >6 hrs or for inadequate output/put discomfort. -f/u 1 month w/ PVR, sooner if needed 2. BPH with urinary obstruction (N40.1: Benign prostatic hyperplasia with lower urinary tract symptoms) taking tamsulosin 0.4 mg BID and finasteride 5 mg QD w/o SEs. previously was very happy w/ urinary sxs and did not wish to discuss surgical management. May need to consider cysto/potential surgical management if pt fails TOV see #1 3. Prostate cancer screening (Z12.5: Encounter for screening for malignant neoplasm of prostate) PSA 04/13/21 - 0.60 03/21/23 - 0.30 07/18/24 - 0.49 -PSA due July 2025 appt Other obstructive and reflux uropathy (N13.8: Other obstructive and reflux uropathy) Follow-up With When Contact Information Celina KLINE, REESE, Ana X, FAM, URL Additional Instructions: 1 mos PVR Patient Education Benign Prostatic Hyperplasia Acute Urinary Retention, Male Problem List/Past Medical History Ongoing Acute kidney injury Anemia Anxiety disorder Bowel obstruction BPH with urinary obstruction Cerebral palsy Disorder of male genital organ Diverticulitis Epilepsy Gastroesophageal reflux disease Glaucoma Hernia of abdominal cavity Hyperlipidemia Leukocytosis Major depression, single episode Muscle weakness Nocturia Oropharyngeal dysphagia Osteoarthritis Osteopenia Post-void dribbling Prostate cancer screening Seizure Vitamin D deficiency Historical No qualifying data Procedure/Surgical History Exploratory laparotomy (06/14/2021), Hydrocelectomy (10/21/2015), Left shoulder (1990), Colonoscopy, Small bowel resection, Vagus nerve stimulator. Medications acetaminophen, 650 mg, Oral, q4hr, PRN albuterol 90 mcg/inh inhalation powder, 2 inh, Inhalation, q4hr benzonatate 100 mg Cap, 100 mg= 1 cap(s), Oral, TID ciprofloxacin 500 mg Tab, 500 mg= 1 tab(s), Oral, q12hr diazepam, 12.5-20mg kit, Rectal, Once finasteride 5 mg Tab, 5 mg= 1 tab(s), Oral, Bedtime hydrocortisone Top 2.5% Crm, daily, Topical, BID hydrOXYzine hydrochloride 25 mg Tab, 25 mg= 1 tab(s), Oral, q12hr, PRN lacosamide 150 mg oral tablet, 150 mg= 1 tab(s), Oral, BID lamotrigine 200 mg Tab, 600 mg= 3 tab(s), Oral, Bedtime lamotrigine 200 mg Tab, 400 mg= 2 tab(s), Oral, qAM latanoprost 0.005% ophthalmic emulsion, 1 drop(s), Eye-Both, Bedtime levetiracetam 1000 mg oral tablet, 2000 mg= 2 tab(s), Oral, Bedtime levETIRAcetam 750 mg oral tablet, dispersible, 1500 mg= 2 tab(s), Oral, Daily Linzess 145 mcg oral capsule, 145 mcg= 1 cap(s), Oral, Daily LORazepam 0.5 mg Tab, 0.5 mg= 1 tab(s), Oral, q8hr, PRN magnesium oxide 400 mg Tab, 400 mg= 1 tab(s), Oral, Daily meclizine 25 mg Tab, 25 mg= 1 tab(s), Oral, q8hr, PRN melatonin 3 mg Tab, 3 mg= 1 tab(s), Oral, Once a day (at bedtime), PRN MetroNIDAZOLE 500 mg Tab, 500 mg= 1 tab(s), Oral, TID MiraLax, 17 gm, Oral, Daily olopatadine Opth 0.2 (more content not included)...[facility] HospitalComment on above:Result Comment: Electronically Signed By: REESE Patrick APRN, [place]\.br\Date and Time Signed: 11/07/24 10:13 EDTAmbulatory Visit Summaryon [id number] Visit SummaryAmbulatory Visit Summary AMOL TAYLOR :1955 Visit Date:11/06/2024 Ambulatory Visit Instructions Your Diagnosis Urinary retention BPH with urinary obstruction Prostate cancer screening Other obstructive and reflux uropathy Your Care Team Attending Physician - REESE Patrick APRN, [place] Primary Care Physician - CARSON DIOR MD This Is Your Medications List acetaminophen albuterol (albuterol 90 mcg/inh inhalation powder) benzonatate (benzonatate 100 mg Cap) cholecalciferol (Vitamin D 1000 intl units (25 mcg) Tab) ciprofloxacin (ciprofloxacin 500 mg Tab) cyanocobalamin (Vitamin B-12 1000 mcg oral tablet) diazepam finasteride (finasteride 5 mg Tab) hydrOXYzine (hydrOXYzine hydrochloride 25 mg Tab) hydrocortisone topical (hydrocortisone Top 2.5% Crm) lacosamide (lacosamide 150 mg oral tablet) lamotrigine (lamotrigine 200 mg Tab) lamotrigine (lamotrigine 200 mg Tab) latanoprost ophthalmic (latanoprost 0.005% ophthalmic emulsion) levetiracetam (levETIRAcetam 750 mg oral tablet, dispersible) levetiracetam (levetiracetam 1000 mg oral tablet) linaclotide (Linzess 145 mcg oral capsule) lorazepam (LORazepam 0.5 mg Tab) magnesium oxide (magnesium oxide 400 mg Tab) meclizine (meclizine 25 mg Tab) melatonin (melatonin 3 mg Tab) metronidazole (MetroNIDAZOLE 500 mg Tab) olopatadine ophthalmic (olopatadine Opth 0.2% [place]) ondansetron (ondansetron 4 mg Tab) pantoprazole (Pantoprazole [address] Tab) polyethylene glycol 3350 (MiraLax) primidone (primidone 250 mg Tab) primidone (primidone 250 mg Tab) senna (senna 8.6 mg Tab) tamsulosin (tamsulosin 0.4 mg Cap) Procedures Performed Exploratory laparotomy (06/14/2021), Hydrocelectomy (10/21/2015), Left shoulder (1990), Colonoscopy, Small bowel resection, Vagus nerve stimulator. Discharge Vitals Heart Rate (Peripheral) 95 Blood Pressure 127/66 Height 160 cm Height 63 in What to do next Scheduled Follow-Up Appointments Sunday2025 9:40 AM EDT With: ELSIE CASTANON PA-C Where: [facility] [address] [address]- Medications What How Much When Instructions Unchanged acetaminophen 650 Milligram By Mouth Every 4 hours as needed for as needed for pain Unchanged albuterol (albuterol 90 mcg/ inh inhalation powder) 2 Inhalation Inhalation Every 4 hours Unchanged benzonatate (benzonatate 100 mg Cap) 1 Capsules By Mouth 3 times a day Unchanged cholecalciferol (Vitamin D 1000 intl units (25 mcg) Tab) 1 Tablets By Mouth Every day Unchanged ciprofloxacin (ciprofloxacin 500 mg Tab) 1 Tablets By Mouth Every 12 hours Unchanged cyanocobalamin (Vitamin B-12 1000 mcg oral tablet) 1 Tablets By Mouth Every day Unchanged diazepam 12.5-20mg kit By rectum Once PRN for seizure activity >15 minutes Unchanged finasteride (finasteride 5 mg Tab) 1 Tablets By Mouth At bedtime Unchanged hydrocortisone topical (hydrocortisone Top 2.5% Crm) daily Topical 2 times a day Unchanged hydrOXYzine (hydrOXYzine hydrochloride 25 mg Tab) 1 Tablets By Mouth Every 12 hours as needed for as needed for itching Unchanged lacosamide (lacosamide 150 mg oral tablet) 1 Tablets By Mouth 2 times a day Unchanged lamotrigine (lamotrigine 200 mg Tab) 3 Tablets By Mouth At bedtime Unchanged lamotrigine (lamotrigine 200 mg Tab) 2 Tablets By Mouth Once a day (in the morning) Unchanged latanoprost ophthalmic (latanoprost 0.005% ophthalmic emulsion) 1 Drops Both eyes At bedtime Unchanged levetiracetam (levetiracetam 1000 mg oral tablet) 2 Tablets By Mouth At bedtime Unchanged levetiracetam (levETIRAcetam 750 mg oral tablet, dispersible) 2 Tablets By Mouth Every day Unchanged linaclotide (Linzess 145 mcg oral capsule) 1 Capsules By Mouth Every day Unchanged lorazepam (LORazepam 0.5 mg Tab) 1 Tablets By Mouth Every 8 hours as needed for Other (see comment) Unchanged magnesium oxide (magnesium oxide 400 mg Tab) 1 Tablets By Mouth Every day Unchanged meclizine (meclizine 25 mg Tab) 1 Tablets By Mouth Every 8 hours as needed for Dizziness FOR DIZZINESS Unchanged melatonin (melatonin 3 mg Tab) 1 Tablets By Mouth Once a day (at bedtime) as needed for for insomnia Unchanged metronidazole (MetroNIDAZOLE 500 mg Tab) 1 Tablets By Mouth 3 times a day Unchanged olopatadine ophthalmic (olopatadine Opth 0.2% [place]) 1 Drops Ophthalmic Every day Unchanged ondansetron (ondansetron 4 mg Tab) 1 Tablets By Mouth Every 6 hours as needed for Nausea/Vomiting Unchanged pantoprazole (Pantoprazole [address] Tab) 40 Milligram By Mouth Every day Unchanged polyethylene glycol 3350 (MiraLax) 17 Gram By Mouth Every day Unchanged primidone (primidone 250 mg Tab) 1 Tablets By Mouth Once a day (in the morning) Unchanged primidone (primidone 250 mg Tab) 1.5 Tablets By Mouth Once a day (at bedtime) Unchanged senna (senna 8.6 mg Tab) 1 Tablets By Mouth 2 times a day Unc (more content not included)...Normal[facility] WITH AUTO DIFFERENTIALon [id number] ABSOLUTE COUNT (10*3/UL) BY AUTOMATED COUNT 0.1 10*3/uLNormal0.0-0.2Pro[facility] Medical CenterComment on above:Performed By: #### PTT #### [facility] ([address] [place] [address] VIRBASOPHILS RELATIVE PERCENT BY AUTOMATED COUNT0.6 %Normal [facility] HospitalComment on above:Performed By: #### PTT #### [facility] ([address] [place] [address] VIRCELLAVISION DIFFERENTIAL TYPEAUTOMATED DIFFERENTIALNormal [facility] HospitalComment on above:Performed By: #### PTT #### [facility] ([address] [place] [address] VIREosinophils (Bld) [#/Vol]0.3 10*3/uLNormal0.0-0.4[facility] HospitalComment on above:Performed By: #### PTT #### [facility] ([address] [address] VIREOSINOPHILS RELATIVE PERCENT BY AUTOMATED COUNT3.4 %Normal [facility] HospitalComsouthwest regional rehabilitation [facility] on above:Performed By: #### PTT #### [facility] ([address] [address] VIRErythrocyte distribution width (RBC) [Ratio]13.5 %Normal 11.5-15ProChrist[facility] Saint Michael HospitalComsouthwest regional rehabilitation center on above:Performed By: #### PTT #### [facility] ([address] [address] VIRHematocrit (Bld) [Volume fraction]39.9 %Ebagyf58-67 ProMWhite Memorial Medical CenterComment on above:Performed By: #### PTT #### [facility] ([address] [place] [address] VIRHemoglobin (Bld) [Mass/Vol]13.2 g/cOGuqyjr61-87UmrUqzkixChristus Saint Michael HospitalComment on above:Performed By: #### PTT #### [facility] ([address] [place] [address] VIRLYMPHOCYTES ABSOLUTE COUNT (10*3/UL) BY AUTOMATED COUNT1.6 10*3/uLNormal1.0-3.5PZanesville City HospitalComment on above:Performed By: #### PTT #### [facility] ([address] [place] [address] VIRLYMPHOCYTES RELATIVE PERCENT BY AUTOMATED COUNT17.9 %Normal [facility] HospitalComment on above:Performed By: #### PTT #### [facility] ([address] [place] [address] VIRMCH (RBC) [Entitic mass]31.5 izNigyyy94-95MalMtedktHocking Valley Community HospitalComment on above:Performed By: #### PTT #### [facility] ([address] [place] [address] VIRMCHC (RBC) [Mass/Vol]33.2 g/rDEhhrst03-31UhpHmfkvmHocking Valley Community HospitalComment on above:Performed By: #### PTT #### [facility] ([address] [place] [address] VIRMCV (RBC) [Entitic vol]95 qRPcyjlf92-542AamYgynfy [facility]ont HospitalComment on above:Performed By: #### PTT #### [facility] ([address] [place] [address] VIRMONOCYTES ABSOLUTE COUNT (10*3/UL) BY AUTOMATED COUNT0.8 10*3/uLNormal0.0-0.9[facility] HospitalComsouthwest [facility] rehabilitation center on above:Performed By: #### PTT #### [facility] ([address] [place] [address] VIRMONOCYTES RELATIVE PERCENT BY AUTOMATED COUNT8.9 %Normal [facility] HospitalComsouthwest [facility] rehabilitation center on above:Performed By: #### PTT #### [facility] ([address] [place] [address] VIRNEUTROPHILS ABSOLUTE COUNT BY AUTOMATED COUNT6.2 10*3/uL Normal1.5-6.6[facility] HospitalComment on above:Performed By: #### PTT #### [facility] ([address] [place] [address] VIRNEUTROPHILS RELATIVE PERCENT BY AUTOMATED COUNT69.2 %Normal [facility] HospitalComment on above:Performed By: #### PTT #### [facility] ([address] [place] [address] VIRPlatelet mean volume (Bld) [Entitic vol]7.4 fLNormal7-12 [facility] HospitalComment on above:Performed By: #### PTT #### [facility] ([address] [place] [address] VIRPlatelets (Bld) [#/Vol]229 10*3/qHEkcfrg373-110KydSuekel [facility] HospitalComment on above:Performed By: #### PTT #### [facility] ([address] [place] [address] VIRRBC COUNT4.20 X10E12/LNormal4.1-5.7Pro[facility] Saint Michael HospitalComment on above:Performed By: #### PTT #### [facility] ([address] [place] [address] VIRWBC (Bld) [#/Vol]9.0 10*3/uLNormal4-11[facility] HospitalComment on above:Performed By: #### PTT #### [facility] ([address] [place] [address] VIRCOMPREHENSIVE METABOLIC PANELon 16-95-2761Uyqxjtj [Mass/Vol]3.9 g/dLNormal3.2-5.3PZanesville City HospitalComment on above: Performed By: #### PTT #### [facility] ([address] [place] [address] VIRALP [Catalytic activity/Vol]134 U/SFwwp30-464QkaVsarlsChristus Saint Michael HospitalComment on above:Performed By: #### PTT #### [facility] ([facility]) [facility] [address] [place] [address] VIRALT [Catalytic activity/Vol]30 U/LNormal<=40Pro[facility] Saint Michael HospitalComment on above:Performed By: #### PTT #### [facility] ([place] [address] [place] [address] VIRAnion gap [Moles/Vol]9 mmol/LNormal5-15Pro[facility] Saint Michael HospitalComment on above:Performed By: #### PTT #### [facility] ([place] [address] [place] [address] VIRAST [Catalytic activity/Vol]26 U/LNormal<=41Pro[facility] Saint Michael HospitalComment on above:Performed By: #### PTT #### [facility] ([place] [address] [place] [place] [address] VIRBilirubin [Mass/Vol]0.2 mg/dLLow0.3-1.2PZanesville City HospitalComment on above:Performed By: #### PTT #### [facility] ([place] [address] [place] [address] VIRCalcium [Mass/Vol]9.3 mg/dLNormal8.5-10.5PZanesville City HospitalComment on above:Performed By: #### PTT #### [facility] ([place] [address] [place] [address] VIRChloride [Moles/Vol]106 mmol/YRocnmc43-855ZrkUcbsczChristus Saint Michael HospitalComment on above:Performed By: #### PTT #### [facility] ([place] [address] [place] [address] VIRCO2 [Moles/Vol]23 mmol/KGeiwmi43-68ZpuJiskav [facility] Medical CenterComment on above:Performed By: #### PTT #### [facility] ([address] [address] VIRCreatinine [Mass/Vol]0.91 mg/dLNormal0.70-1.20Pro[facility] Saint Michael HospitalComment on above:Result Comment: METHOD TRACEABLE TO IDMS STANDARDPerformed By: #### PTT #### [facility] ([address] [address] VIREGFR (CKD-EPI) NON-RACE DEPENDENT>^90Normal>=60ProChristus Saint Michael HospitalComment on above:Result Comment: eGFR not reported due to non- numeric value for Creatinine. EGFR not calculated due to patient's gender not being defined. Reported eGFR is based on the CKD-EPI 2020 equation that does not use a race coefficient.Performed By: #### PTT #### [facility] ([address] [address] VIRGlucose [Mass/Vol]102 mg/fUHqfa15-24WolNhihsqChristus Saint Michael HospitalComment on above:Performed By: #### PTT #### [facility] ([address] [address] VIRPotassium [Moles/Vol]4.2 mmol/LNormal3.5-5.0ProChrist[facility] Saint Michael HospitalComment on above:Performed By: #### PTT #### [facility] ([address] [address] VIRProtein [Mass/Vol]7.8 g/dLNormal6.0-8.0Pro[facility] Saint Michael HospitalComment on above:Performed By: #### PTT #### [facility] ([address] [address] VIRSodium [Moles/Vol]138 mmol/YNmvymb293-373IlgTeznkb [facility] HospitalComment on above:Performed By: #### PTT #### [facility] ([facility]) [address] [place] [address] [place] [address] VIRUrea nitrogen [Mass/Vol]16 mg/dLNormal07-29[facility] Community HospitalComment on above:Performed By: #### PTT #### [facility] ([facility]) [address] [place] [address] [place] [address] VIRCT ABDOMEN AND PELVIS WO CONTon [id number] ABDOMEN AND PELVIS WO CONTCT ABDOMEN AND PELVIS WO CONT CLINICAL INFORMATION: Diarrhea.. r/o bowel obstruction TECHNIQUE/PROCEDURE: CT abdomen and pelvis without intravenous contrast. All CT scans at this facility use dose modulation, iterative reconstruction, and/or weight based dosing when appropriate to reduce radiation dose to as low as reasonably achievable. COMPARISON: 10/14/2024 FINDINGS: Dependent atelectasis. The heart size is normal. No pericardial effusion. Normal hepatic morphology. No suspicious focal intrahepatic lesions. The gallbladder is present. Nobiliary dilatation or portal venous gas. The pancreas and spleen are normal. The adrenal glands and right kidney are negative. Sequelae of remote subcapsular hematoma about theleft kidney. Urinary bladder contains Will catheter. Abdominal aorta nonaneurysmal. IVC right-sided. No enlarged abdominal or pelvic lymph nodes. No bowel dilatation. No free air or free fluid. No peritoneal nodularity. Postsurgical changes leftlower quadrant bowel loops. No aggressive osseous lesions or acute fractures are identified. IMPRESSION: * No acute abdominal or pelvic findings, specifically no evidence of bowel obstruction. Finalized by Onel Pulido MD on 10/22/2024 5:47 PMNormalProChristus Saint Michael HospitalLACTATE W/ REFLEXon [id number] W/REFLEX1.7 mmol/LNormal0.4-2.0 [facility] HospitalComsouthwest regional rehabilitation center on above:Order Comment: Result did not trigger repeat Lactate,re-order if needed.Performed By: #### PTT #### [facility] ([facility]) [address] [place] [address] [place] [address] VIRLIPASEon [id number] [Catalytic activity/Vol]52 U/L Tjfn65-41SttWicclaChristus Saint Michael HospitalComment on above:Performed By: #### PTT #### [facility] ([address] [address] VIRMAGNESIUMon [id number] [Mass/Vol]1.7 mg/dLLow 1.8-2.6ProChristus Saint Michael HospitalComment on above:Performed By: #### PTT #### [facility] ([address] [address] VIRCBC WITH AUTO DIFFERENTIALon [id number] ABSOLUTE COUNT (10*3/UL) BY AUTOMATED COUNT0.0 10*3/uLNormal0.0-0.2PZanesville City HospitalComment on above:Performed By: #### PINR #### [address] [address] VIRBASOPHILS RELATIVE PERCENT BY AUTOMATED COUNT0.8 %Normal [facility] HospitalComment on above:Performed By: #### PINR #### [address] [address] VIRCELLAVISION DIFFERENTIAL TYPEAUTOMATED DIFFERENTIALNormal [facility] HospitalComment on above:Performed By: #### PINR #### [address] [address] VIREosinophils (Bld) [#/Vol]0.3 10*3/uLNormal0.0-0.4ProChristus Saint Michael HospitalComment on above:Performed By: #### PINR #### [address] [address] VIREOSINOPHILS RELATIVE PERCENT BY AUTOMATED COUNT4.5 %Normal [facility] HospitalComment on above:Performed By: #### PINR #### [facility] ([address] [address] VIRErythrocyte distribution width (RBC) [Ratio]12.6 %Normal 11.5-15[facility] Community HospitalComment on above:Performed By: #### PINR #### [facility] ([address] [place] [address] VIRHematocrit (Bld) [Volume fraction]36.4 %Iqq20-66BpbRyvpjpChristus Saint Michael HospitalComment on above:Performed By: #### PINR #### [facility] ([address] [address] VIRHemoglobin (Bld) [Mass/Vol]12.4 g/fFDae07-18UzkYgntbnChristus Saint Michael HospitalComment on above:Performed By: #### PINR #### [facility] ([address] [address] VIRLYMPHOCYTES ABSOLUTE COUNT (10*3/UL) BY AUTOMATED COUNT1.8 10*3/uLNormal1.0-3.5PZanesville City HospitalComment on above:Performed By: #### PINR #### [facility] ([address] [address] VIRLYMPHOCYTES RELATIVE PERCENT BY AUTOMATED COUNT28.4 %Normal [facility] HospitalComment on above:Performed By: #### PINR #### [facility] ([address] [address] VIRMCH (RBC) [Entitic mass]31.6 htDrlxcp73-59KzkHcerwjChristus Saint Michael HospitalComment on above:Performed By: #### PINR #### [facility] ([address] [address] VIRMCHC (RBC) [Mass/Vol]34.1 g/rCSwcpxe59-66VozXszjiiChristus Saint Michael HospitalComment on above:Performed By: #### PINR #### [facility] ([address] [place] [address] VIRMCV (RBC) [Entitic vol]93 sDYpeyds84-911YjoVblnkb [facility]remont HospitalComment on above:Performed By: #### PINR #### [facility] ([address] [place] [address] VIRMONOCYTES ABSOLUTE COUNT (10*3/UL) BY AUTOMATED COUNT0.5 10*3/uLNormal0.0-0.9[facility] HospitalComment on above:Performed By: #### PINR #### [facility] ([address] [place] [address] VIRMONOCYTES RELATIVE PERCENT BY AUTOMATED COUNT8.4 %Normal [facility] HospitalComment on above:Performed By: #### PINR #### [facility] ([address] [place] [address] VIRNEUTROPHILS ABSOLUTE COUNT BY AUTOMATED COUNT3.7 10*3/uL Normal1.5-6.6[facility] HospitalComsouthwest regional rehabilitation center on above:Performed By: #### PINR #### [facility] ([address] [place] [address] VIRNEUTROPHILS RELATIVE PERCENT BY AUTOMATED COUNT57.9 %Normal [facility] HospitalComsouthwest regional rehabilitation center on above:Performed By: #### PINR #### [facility] ([address] [place] [address] VIRPlatelet mean volume (Bld) [Entitic vol]7.3 fLNormal7-12 [facility] HospitalComment on above:Performed By: #### PINR #### [facility] ([address] [place] [address] VIRPlatelets (Bld) [#/Vol]192 10*3/dVGgzkax946-494WwbXjyjnt Springfield HospitalComment on above:Performed By: #### PINR #### [facility] ([address] [place] [address] VIRRBC COUNT3.92 X10E12/LLow4.1-5.7[facility] Comment on above:Performed By: #### PINR #### [facility] ([address] [place] [address] VIRWBC (Bld) [#/Vol]6.3 10*3/uLNormal4-11[facility] HospitalComment on above:Performed By: #### PINR #### [facility] ([address] [place] [address] VIRCBC auto differentialon [id number] (Bld) [#/Vol]0 10*3/uL0.0 - 0.2 10*3/uLGreene Memorial HospitalBasophils/100 WBC (Bld)0.8 % [facility] HospitalDifferential cell count method Nom (Bld)AUTOMATED DIFFERENTIALGreene Memorial HospitalEosinophils (Bld) [#/Vol]0.3 10*3/uL0.0 - 0.4 10*3/uLGreene Memorial HospitalEosinophils/100 WBC (Bld)4.5 %[facility] Memorial HospitalErythrocyte distribution width (RBC) [Ratio]12.6 %11.5 - 15 %[facility] Hospital SystemHematocrit (Bld) [Volume fraction]36.4 %Low39 - 50 %[facility] Memorial HospitalHemoglobin (Bld) [Mass/Vol]12.4 g/dLLow13 - 17 g/dLGreene Memorial HospitalInterpretation and review of laboratory resultsAbnormalGreene Memorial HospitalLymphocytes (Bld) [#/Vol]1.8 10*3/uL1.0 - 3.5 10*3/uLGreene Memorial HospitalLymphocytes/100 WBC (Bld)28.4 %[facility] Memorial HospitalMCH (RBC) [Entitic mass]31.6 pg27 - 34 pgProMedica Health SystemMCHC (RBC) [Mass/Vol]34.1 g/dL32 - 36 g/dLGreene Memorial HospitalMCV (RBC) [Entitic vol]93 fL80 - 100 [facility] Health SystemMonocytes (Bld) [#/Vol]0.5 10*3/uL0.0 - 0.9 10*3/uLBrown Memorial Hospital SystemMonocytes/100 WBC (Bld)8.4 %[facility] Memorial HospitalNeutrophils (Bld) [#/Vol]3.7 10*3/uL1.5 - 6.6 10*3/uLGreene Memorial HospitalNeutrophils/100 WBC (Bld)57.9 %[facility] Memorial HospitalPlatelet mean volume (Bld) [Entitic vol]7.3 fL 7 - 12 [facility] Health SystemPlatelets (Bld) [#/Vol]192 10*3/uLBrown Memorial Hospital SystemRBC (Bld) [#/Vol]3.92 10*6/uLLowGreene Memorial HospitalWBC LM Ql (Sput)6.3PLankenau Medical CenterCOMPREHENSIVE METABOLIC PANELon [id number] [Mass/Vol]3.3 g/dLNormal3.2-5.3PZanesville City HospitalComment on above:Performed By: #### PTT #### [facility] ([address] [place] [address] VIRALP [Catalytic activity/Vol]117 U/BNomyqi20-037TyuIqpmipChristus Saint Michael HospitalComment on above:Performed By: #### PTT #### [facility] ([address] [place] [address] VIRALT [Catalytic activity/Vol]22 U/LNormal<=40[facility] HospitalComment on above:Performed By: #### PTT #### [facility] ([address] [place] [address] VIRAnion gap [Moles/Vol]8 mmol/LNormal5-15[facility] HospitalComment on above:Performed By: #### PTT #### [facility] ([address] [place] [address] VIRAST [Catalytic activity/Vol]24 U/LNormal<=41ProChristus Saint Michael HospitalComment on above:Performed By: #### PTT #### [facility] ([address] [place] [address] VIRBilirubin [Mass/Vol]0.4 mg/dLNormal0.3-1.2PZanesville City HospitalComment on above:Performed By: #### PTT #### [facility] ([address] [place] [address] VIRCalcium [Mass/Vol]8.7 mg/dLNormal8.5-10.5PZanesville City HospitalComment on above:Performed By: #### PTT #### [facility] ([address] [place] [address] VIRChloride [Moles/Vol]110 mmol/ZNhrl25-190MhjSqpledChristus Saint Michael HospitalComment on above:Performed By: #### PTT #### [facility] ([address] [place] [address] VIRCO2 [Moles/Vol]21 mmol/ETma52-70GfwHpxgboZanesville City Hospital Comment on above:Performed By: #### PTT #### [facility] ([address] [place] [address] VIRCreatinine [Mass/Vol]0.85 mg/dLNormal0.70-1.20ProChristus Saint Michael HospitalComment on above:Result Comment: METHOD TRACEABLE TO IDMS STANDARDPerformed By: #### PTT #### [facility] ([address] [place] [address] VIREGFR (CKD-EPI) NON-RACE DEPENDENT>^90Normal>=60ProChristus Saint Michael HospitalComment on above:Result Comment: eGFR not reported due to non- numeric value for Creatinine. Reported eGFR is based on the CKD-EPI 2020 equation that does not use a race coefficient.Performed By: #### PTT #### [facility] ([address] [place] [address] VIRGlucose [Mass/Vol]97 mg/zTHrscjl04-29SxsHmzqtqChristus Saint Michael HospitalComment on above:Performed By: #### PTT #### [facility] ([address] [place] [address] VIRPotassium [Moles/Vol]4.1 mmol/LNormal3.5-5.0[facility] HospitalComment on above:Performed By: #### PTT #### [facility] ([address] [place] [address] VIRProtein [Mass/Vol]6.5 g/dLNormal6.0-8.0ProChristus Saint Michael HospitalComment on above:Performed By: #### PTT #### [facility] ([address] [place] [address] VIRSodium [Moles/Vol]139 mmol/GBkcqrv291-657MwuBxtgvk [facility] HospitalComment on above:Performed By: #### PTT #### [facility] ([address] [place] [address] VIRUrea nitrogen [Mass/Vol]7 mg/dLNormal5-27ProChristus Saint Michael HospitalComment on above:Performed By: #### PTT #### [facility] ([address] [place] [address] VIRComprehensive metabolic panelon [id number] [Mass/Vol]3.3 g/dL3.2 - 5.3 g/dLBrown Memorial Hospital SystemALP [Catalytic activity/Vol]117 U/L39 - 130 U/LProMedMercy Health St. Charles HospitalALT No additional P-5'-P [Catalytic activity/Vol]22 U/LNINF - 40 U/LProMedica Health SystemAnion gap [Moles/Vol]8 mmol/L5 - 15 mmol/LProMedica Health SystemAST [Catalytic activity/Vol]24 U/LNINF - 41 U/LProMedica Health SystemBilirubin [Mass/Vol]0.4 mg/dL0.3 - 1.2 mg/dLProHelen Keller Hospital Health SystemCalcium [Mass/Vol]8.7 mg/dL8.5 - 10.5 mg/dLProHelen Keller Hospital Health SystemChloride [Moles/Vol]110 mmol/LHigh98 - 109 mmol/L [facility] SystemCO2 [Moles/Vol]21 mmol/LLow22 - 32 mmol/LPrLee's Summit Hospitalica Health SystemCreatinine [Mass/Vol]0.85 mg/dL0.70 - 1.20 mg/dLGreene Memorial Hospital Comment on above:METHOD TRACEABLE TO IDMS STANDARDEGFR Non-Race Dependent- PINF [facility] Memorial HospitalComment on above:eGFR not reported due to non-numeric value for Creatinine. Reported eGFR is based on the CKD-EPI 2020 equation that does not use a race coefficient. Glucose [Mass/Vol]97 mg/dL65 - 99 mg/dLAdena Health System Health SystemPotassium [Moles/Vol]4.1 mmol/L3.5 - 5.0 mmol/LProMedica Health SystemProtein [Mass/Vol] 6.5 g/dL6.0 - 8.0 g/dLAdena Health System Health SystemSodium [Moles/Vol]139 mmol/L134 - 146 mmol/LPrLee's Summit Hospitalica Health SystemUrea nitrogen [Mass/Vol]7 mg/dL5 - 27 mg/dL [facility] SystemMAGNESIUMon [id number] [Mass/Vol]2.3 mg/dLNormal 1.8-2.6ProChristus Saint Michael HospitalComment on above:Performed By: #### PTT #### [facility] ([address] [place] [address] VIRMagnesium [Mass/Vol]1.6 mg/dLLow1.8-2.6ProChristus Saint Michael HospitalComment on above:Performed By: #### PINR #### [facility] ([address] [address] VIRMagnesiumon 62-06-4876Nknzhgrgbzgzsv and review of laboratory resultsNormAvita Health System Galion HospitalMagnesium [Mass/Vol]2.3 mg/dL1.8 - 2.6 mg/dLGreene Memorial HospitalProUniversity Hospitals [facility] SystemMagnesium [Mass/Vol]1.6 mg/dLLow1.8 - 2.6 mg/dLGreene Memorial HospitalNo Panel Informationon 10-19-2024 Interpretation and review of laboratory resultsAbnoGundersen Boscobel Area Hospital and ClinicsCBC WITH AUTO DIFFERENTIALon [id number] ABSOLUTE COUNT (10*3/UL) BY AUTOMATED COUNT0.0 10*3/uLNormal0.0-0.2ProMedFremont HospitalComment on above:Performed By: #### PINR #### [address] [address] VIRBASOPHILS RELATIVE PERCENT BY AUTOMATED COUNT0.5 %Normal [facility] HospitalComment on above:Performed By: #### PINR #### [address] [address] VIRCELLAVISION DIFFERENTIAL TYPEAUTOMATED DIFFERENTIALNormal [facility] HospitalComment on above:Performed By: #### PINR #### [address] [address] VIREosinophils (Bld) [#/Vol]0.1 10*3/uLNormal0.0-0.4[facility] HospitalComment on above:Performed By: #### PINR #### [address] [address] VIREOSINOPHILS RELATIVE PERCENT BY AUTOMATED COUNT1.7 %Normal [facility] HospitalComment on above:Performed By: #### PINR #### [facility] ([address] [place] [address] VIRErythrocyte distribution width (RBC) [Ratio]12.6 %Normal 11.5-15[facility] HospitalComment on above:Performed By: #### PINR #### [facility] ([address] [place] [address] VIRHematocrit (Bld) [Volume fraction]38.5 %Ztk59-07QzqGeglhjChristus Saint Michael HospitalComment on above:Performed By: #### PINR #### [facility] ([address] [place] [address] VIRHemoglobin (Bld) [Mass/Vol]13.3 g/mFRhkbnn32-60XmbVrqtfdChristus Saint Michael HospitalComment on above:Performed By: #### PINR #### [facility] ([address] [place] [address] VIRLYMPHOCYTES ABSOLUTE COUNT (10*3/UL) BY AUTOMATED COUNT1.5 10*3/uLNormal1.0-3.5PZanesville City HospitalComment on above:Performed By: #### PINR #### [facility] ([address] [place] [address] VIRLYMPHOCYTES RELATIVE PERCENT BY AUTOMATED COUNT20.2 %Normal [facility] HospitalComment on above:Performed By: #### PINR #### [facility] ([address] [place] [address] VIRMCH (RBC) [Entitic mass]31.9 mkEaodok64-99UysWczrdxHocking Valley Community HospitalComment on above:Performed By: #### PINR #### [facility] ([address] [place] [address] VIRMCHC (RBC) [Mass/Vol]34.4 g/dZBxwbtd35-55HhnVosdwsChristus Saint Michael HospitalComment on above:Performed By: #### PINR #### [facility] ([address] [place] [address] VIRMCV (RBC) [Entitic vol]93 aFSbcsax89-262ZafLzdnyv [facility] HospitalComment on above:Performed By: #### PINR #### [facility] ([address] [place] [address] VIRMONOCYTES ABSOLUTE COUNT (10*3/UL) BY AUTOMATED COUNT0.6 10*3/uLNormal0.0-0.9[facility] HospitalComsouthwest regional rehabilitation center on above:Performed By: #### PINR #### [facility] ([address] [place] [place] [address] VIRMONOCYTES RELATIVE PERCENT BY AUTOMATED COUNT8.8 %Normal [facility] HospitalComsouthwest regional rehabilitation center on above:Performed By: #### PINR #### [facility] ([address] [place] [address] VIRNEUTROPHILS ABSOLUTE COUNT BY AUTOMATED COUNT5.0 10*3/uL Normal1.5-6.6[facility] HospitalComsouthwest regional rehabilitation center on above:Performed By: #### PINR #### [facility] ([address] [place] [place] [address] VIRNEUTROPHILS RELATIVE PERCENT BY AUTOMATED COUNT68.8 %Normal [facility] HospitalComsouthwest regional rehabilitation center on above:Performed By: #### PINR #### [facility] ([address] [place] [place] [address] VIRPlatelet mean volume (Bld) [Entitic vol]7.5 fLNormal7-12 [facility] HospitalComment on above:Performed By: #### PINR #### [facility] ([address] [place] [address] VIRPlatelets (Bld) [#/Vol]220 10*3/lXCkralw554-411WlvErqgey [facility] HospitalComment on above:Performed By: #### PINR #### [facility] ([address] [address] VIRRBC COUNT4.15 X10E12/LNormal4.1-5.7[facility] HospitalComment on above:Performed By: #### PINR #### [facility] ([address] [address] VIRWBC (Bld) [#/Vol]7.2 10*3/uLNormal4-11ProChristus Saint Michael HospitalComment on above:Performed By: #### PINR #### [facility] ([address] [address] VIRCBC auto differentialon [id number] (Bld) [#/Vol]0 10*3/uL0.0 - 0.2 10*3/uLGreene Memorial HospitalBasophils/100 WBC (Bld)0.5 % [facility] HospitalDifferential cell count method Nom (Bld)AUTOMATED DIFFERENTIALGreene Memorial HospitalEosinophils (Bld) [#/Vol]0.1 10*3/uL0.0 - 0.4 10*3/uLGreene Memorial HospitalEosinophils/100 WBC (Bld)1.7 %[facility] Memorial HospitalErythrocyte distribution width (RBC) [Ratio]12.6 %11.5 - 15 %[facility] Memorial HospitalHematocrit (Bld) [Volume fraction]38.5 %Low39 - 50 %[facility] Memorial HospitalHemoglobin (Bld) [Mass/Vol]13.3 g/dL13 - 17 g/dLGreene Memorial HospitalInterpretation and review of laboratory resultsAbnoUNC Health ChathamLymphocytes (Bld) [#/Vol]1.5 10*3/uL1.0 - 3.5 10*3/uLGreene Memorial HospitalLymphocytes/100 WBC (Bld)20.2 %[facility] HospitalH (RBC) [Entitic mass]31.9 pg27 - 34 pgPClinton Memorial HospitalMCHC (RBC) [Mass/Vol]34.4 g/dL32 - 36 g/dLGreene Memorial HospitalMCV (RBC) [Entitic vol]93 fL80 - 100 [facility] SystemMonocytes (Bld) [#/Vol]0.6 10*3/uL0.0 - 0.9 10*3/uLGreene Memorial HospitalMonocytes/100 WBC (Bld)8.8 %[facility] HospitalNeutrophils (Bld) [#/Vol]5 10*3/uL1.5 - 6.6 10*3/uLGreene Memorial HospitalNeutrophils/100 WBC (Bld)68.8 %[facility] HospitalPlatelet mean volume (Bld) [Entitic vol]7.5 fL 7 - 12 [facility] SystemPlatelets (Bld) [#/Vol]220 10*3/uLBrown Memorial Hospital SystemRBC (Bld) [#/Vol]4.15 10*6/[facility] HospitalWBC LM Ql (Sput)7.2PLankenau Medical CenterCOMPREHENSIVE METABOLIC PANELon [id number] [Mass/Vol]3.4 g/dLNormal3.2-5.3PZanesville City HospitalComment on above:Performed By: #### PINR #### [facility] ([address] [place] [address] VIRALP [Catalytic activity/Vol]121 U/GSlmcuv96-400AdpJolzlyChristus Saint Michael HospitalComment on above:Performed By: #### PINR #### [facility] ([address] [place] [address] VIRALT [Catalytic activity/Vol]18 U/LNormal<=40ProChristus Saint Michael HospitalComment on above:Performed By: #### PINR #### [facility] ([address] [place] [address] VIRAnion gap [Moles/Vol]11 mmol/LNormal5-15ProChristus Saint Michael HospitalComment on above:Performed By: #### PINR #### [facility] ([address] [place] [address] VIRAST [Catalytic activity/Vol]17 U/LNormal<=41ProChristus Saint Michael HospitalComment on above:Performed By: #### PINR #### [facility] ([address] [address] VIRBilirubin [Mass/Vol]0.5 mg/dLNormal0.3-1.2PZanesville City HospitalComment on above:Performed By: #### PINR #### [address] [place] [address] VIRCalcium [Mass/Vol]8.5 mg/dLNormal8.5-10.5PZanesville City HospitalComment on above:Performed By: #### PINR #### [facility] ([address] [place] [address] VIRChloride [Moles/Vol]107 mmol/HPvkrwl52-779TpbWusnfwChristus Saint Michael HospitalComment on above:Performed By: #### PINR #### [facility] ([address] [place] [address] VIRCO2 [Moles/Vol]21 mmol/JPjo95-21SejTwhdrsZanesville City Hospital Comment on above:Performed By: #### PINR #### [facility] ([address] [place] [address] VIRCreatinine [Mass/Vol]0.81 mg/dLNormal0.70-1.20ProChristus Saint Michael HospitalComment on above:Result Comment: METHOD TRACEABLE TO IDMS STANDARDPerformed By: #### PINR #### [facility] ([address] [place] [address] VIREGFR (CKD-EPI) NON-RACE DEPENDENT>^90Normal>=60ProChristus Saint Michael HospitalComment on above:Result Comment: eGFR not reported due to non- numeric value for Creatinine. Reported eGFR is based on the CKD-EPI 2020 equation that does not use a race coefficient.Performed By: #### PINR #### [facility] ([address] [address] VIRGlucose [Mass/Vol]106 mg/nDCchc25-83EpaJstgvxChristus Saint Michael HospitalComment on above:Performed By: #### PINR #### [facility] ([address] [address] VIRPotassium [Moles/Vol]3.9 mmol/LNormal3.5-5.0[facility] HospitalComment on above:Performed By: #### PINR #### [facility] ([address] [address] VIRProtein [Mass/Vol]7.0 g/dLNormal6.0-8.0[facility] HospitalComment on above:Performed By: #### PINR #### [facility] ([address] [address] VIRSodium [Moles/Vol]139 mmol/BYghaee872-366XrvChkzqi [facility] HospitalComment on above:Performed By: #### PINR #### [address] [address] VIRUrea nitrogen [Mass/Vol]9 mg/dLNormal5-27ProChristus Saint Michael HospitalComment on above:Performed By: #### PINR #### [address] [address] VIRComprehensive metabolic panelon 71-65-3227Qkouqrj [Mass/Vol]3.4 g/dL3.2 - 5.3 g/dLProMedica Health SystemALP [Catalytic activity/Vol]121 U/L39 - 130 U/LPrCentennial Peaks Hospital Health SystemALT No additional P-5'-P [Catalytic activity/Vol]18 U/LNINF - 40 U/LPrCentennial Peaks Hospital Health SystemAnion gap [Moles/Vol]11 mmol/L5 - 15 mmol/LPrLee's Summit Hospitalica Health SystemAST [Catalytic activity/Vol]17 U/LNINF - 41 U/LPrMercy Health Allen Hospital SystemBilirubin [Mass/Vol]0.5 mg/dL0.3 - 1.2 mg/dLProUniversity [facility]als [facility] SystemCalcium [Mass/Vol]8.5 mg/dL8.5 - 10.5 mg/dLBrown Memorial Hospital SystemChloride [Moles/Vol]107 mmol/L98 - 109 mmol/L [facility] HospitalCO2 [Moles/Vol]21 mmol/LLow22 - 32 mmol/[facility] SystemCreatinine [Mass/Vol]0.81 mg/dL0.70 - 1.20 mg/dLGreene Memorial Hospital Comment on above:METHOD TRACEABLE TO IDSC STANDARDEGFR Non-Race Dependent- PINF [facility] HospitalComment on above:eGFR not reported due to non-numeric value for Creatinine. Reported eGFR is based on the CKD-EPI 2020 equation that does not use a race coefficient. Glucose [Mass/Vol]106 mg/pEDkns00 - 99 mg/dLGreene Memorial Hospital Interpretation and review of laboratory resultsAbnormalProPaulding County Hospital Potassium [Moles/Vol]3.9 mmol/L3.5 - 5.0 mmol/LPrLee's Summit Hospitalica Health SystemProtein [Mass/Vol]7 g/dL6.0 - 8.0 g/dLFormerly [facility], 1928–1983odium [Moles/Vol]139 mmol/L134 - 146 mmol/[facility] SystemUrea nitrogen [Mass/Vol]9 mg/dL5 - 27 mg/dLGreene Memorial HospitalMAGNESIUMon [id number] [Mass/Vol]2.1 mg/dLNormal1.8-2.6H[facility] HospitalComment on above:Performed By: #### PINR #### [facility] ([address]gnesiumon [id number] and review of laboratory resultsNormalProPaulding County HospitalMagnesium [Mass/Vol]2.1 mg/dL1.8 - 2.6 mg/dLGreene Memorial HospitalNo Panel Informationon [id number] County HospitalCBC WITH AUTO DIFFERENTIALon [id number] ABSOLUTE COUNT (10*3/UL) BY AUTOMATED COUNT0.0 10*3/uLNormal0.0-0.2PZanesville City Hospital Comment on above:Performed By: #### CBCA #### [address] [address] VIRBASOPHILS RELATIVE PERCENT BY AUTOMATED COUNT0.3 %Normal [facility] HospitalComment on above:Performed By: #### CBCA #### [address] [address] VIRCELLAVISION DIFFERENTIAL TYPEAUTOMATED DIFFERENTIALNormal [facility] HospitalComment on above:Performed By: #### CBCA #### [address] [address] VIREosinophils (Bld) [#/Vol]0.2 10*3/uLNormal0.0-0.4[facility] HospitalComment on above:Performed By: #### CBCA #### [address] [address] VIREOSINOPHILS RELATIVE PERCENT BY AUTOMATED COUNT2.7 %Normal [facility] HospitalComment on above:Performed By: #### CBCA #### [address] [address] VIRErythrocyte distribution width (RBC) [Ratio]12.7 %Normal 11.5-15[facility] HospitalComment on above:Performed By: #### CBCA #### [place] [address] [place] [address] VIRHematocrit (Bld) [Volume fraction]32.3 %Pmb80-30GhkJkwatvHocking Valley Community HospitalComment on above:Performed By: #### CBCA #### [facility] ([address] [address] VIRHemoglobin (Bld) [Mass/Vol]11.2 g/bWKlo82-16BzlUnrfjlChristus Saint Michael HospitalComment on above:Performed By: #### CBCA #### [facility] ([address] [address] VIRLYMPHOCYTES ABSOLUTE COUNT (10*3/UL) BY AUTOMATED COUNT1.3 10*3/uLNormal1.0-3.5PZanesville City HospitalComment on above:Performed By: #### CBCA #### [facility] ([address] [address] VIRLYMPHOCYTES RELATIVE PERCENT BY AUTOMATED COUNT17.5 %Normal [facility] HospitalComment on above:Performed By: #### CBCA #### [facility] ([address] [address] VIRMCH (RBC) [Entitic mass]32.3 elFiehsk61-73RsgEizlrwChristus Saint Michael HospitalComment on above:Performed By: #### CBCA #### [facility] ([address] [address] VIRMCHC (RBC) [Mass/Vol]34.7 g/hZZxmuyi59-69PjlQlvtoyChristus Saint Michael HospitalComment on above:Performed By: #### CBCA #### [facility] ([address] [address] VIRMCV (RBC) [Entitic vol]93 uSTlkxoz05-879OmfXybmxg [facility] HospitalComment on above:Performed By: #### CBCA #### [facility] ([facility]) [address] [place], [place] [address]. [place] [address] VIRMONOCYTES ABSOLUTE COUNT (10*3/UL) BY AUTOMATED COUNT0.6 10*3/uLNormal0.0-0.9[facility] HospitalComment on above:Performed By: #### CBCA #### [facility] ([facility]) [address] [place] [address] [place] [address] VIRMONOCYTES RELATIVE PERCENT BY AUTOMATED COUNT7.7 %Normal [facility] HospitalComment on above:Performed By: #### CBCA #### [facility] ([address] [place] [address] VIRNEUTROPHILS ABSOLUTE COUNT BY AUTOMATED COUNT5.3 10*3/uL Normal1.5-6.6ProChristus Saint Michael HospitalComment on above:Performed By: #### CBCA #### [facility] ([address] [place] [address] VIRNEUTROPHILS RELATIVE PERCENT BY AUTOMATED COUNT71.8 %Normal [facility] HospitalComment on above:Performed By: #### CBCA #### [facility] ([address] [place] [address] VIRPlatelet mean volume (Bld) [Entitic vol]7.1 fLNormal7-12 [facility] HospitalComment on above:Performed By: #### CBCA #### [facility] ([address] [place] [address] VIRPlatelets (Bld) [#/Vol]210 10*3/bYCfaooe924-479VpvKqiswd [facility] HospitalComment on above:Performed By: #### CBCA #### [facility] ([address] [place] [address] VIRRBC COUNT3.47 X10E12/LLow4.1-5.7[facility] Comment on above:Performed By: #### CBCA #### [facility] ([facility]) [address] [place] [address] [place] [address] VIRWBC (Bld) [#/Vol]7.4 10*3/uLNormal4-11[facility] HospitalComment on above:Performed By: #### CBCA #### [facility] ([address] [place] [address] VIRCBC auto differentialon [id number] (Bld) [#/Vol]0 10*3/uL0.0 - 0.2 10*3/uLGreene Memorial HospitalBasophils/100 WBC (Bld)0.3 % [facility] HospitalDifferential cell count method Nom (Bld)AUTOMATED DIFFERENTIALGreene Memorial HospitalEosinophils (Bld) [#/Vol]0.2 10*3/uL0.0 - 0.4 10*3/uLGreene Memorial HospitalEosinophils/100 WBC (Bld)2.7 %[facility] HospitalErythrocyte distribution width (RBC) [Ratio]12.7 %11.5 - 15 %[facility] HospitalHematocrit (Bld) [Volume fraction]32.3 %Low39 - 50 %[facility] HospitalHemoglobin (Bld) [Mass/Vol]11.2 g/dLLow13 - 17 g/dLGreene Memorial HospitalInterpretation and review of laboratory resultsAbnormalGreene Memorial HospitalLymphocytes (Bld) [#/Vol]1.3 10*3/uL1.0 - 3.5 10*3/uLGreene Memorial HospitalLymphocytes/100 WBC (Bld)17.5 %[facility] HospitalMCH (RBC) [Entitic mass]32.3 pg27 - 34 [facility] HospitalMCHC (RBC) [Mass/Vol]34.7 g/dL32 - 36 g/dLGreene Memorial HospitalMCV (RBC) [Entitic vol]93 fL80 - 100 [facility] SystemMonocytes (Bld) [#/Vol]0.6 10*3/uL0.0 - 0.9 10*3/uLProUniversity Hospitals Elyria Medical Center SystemMonocytes/100 WBC (Bld)7.7 %[facility] SystemNeutrophils (Bld) [#/Vol]5.3 10*3/uL1.5 - 6.6 10*3/uLBrown Memorial Hospital SystemNeutrophils/100 WBC (Bld)71.8 %[facility] SystemPlatelet mean volume (Bld) [Entitic vol]7.1 fL 7 - 12 [facility] SystemPlatelets (Bld) [#/Vol]210 10*3/uLBrown Memorial Hospital SystemRBC (Bld) [#/Vol]3.47 10*6/LowGreene Memorial HospitalWBC LM Ql (Sput)7.4[facility] UPMCCOMPREHENSIVE METABOLIC PANELon [id number] [Mass/Vol]3.0 g/dLLow3.2-5.3PZanesville City Hospital Comment on above:Performed By: #### PINR #### [facility] ([facility]) [address] [place] [address] [place] [address] VIRALP [Catalytic activity/Vol]109 U/JIvjxqm44-480MhuAndlvaChristus Saint Michael HospitalComment on above:Performed By: #### PINR #### [facility] ([facility]) [address] [place] [address] [place] [address] VIRALT [Catalytic activity/Vol]16 U/LNormal<=40ProChristus Saint Michael HospitalComment on above:Performed By: #### PINR #### [facility] ([facility]) [address] [place] [address] [place] [address] VIRAnion gap [Moles/Vol]8 mmol/LNormal5-15ProChristus Saint Michael HospitalComment on above:Performed By: #### PINR #### [facility] ([facility]) [address] [place] [address] [place] [address] VIRAST [Catalytic activity/Vol]15 U/LNormal<=41ProChristus Saint Michael HospitalComment on above:Performed By: #### PINR #### [facility] ([address] [place] [place] [address] VIRBilirubin [Mass/Vol]0.7 mg/dLNormal0.3-1.2PZanesville City HospitalComment on above:Performed By: #### PINR #### [facility] ([address] [place] [place] [address] VIRCalcium [Mass/Vol]8.2 mg/dLLow8.5-10.5PZanesville City HospitalComment on above:Performed By: #### PINR #### [facility] ([address] [place] [address] VIRChloride [Moles/Vol]109 mmol/GYnifzj32-112HnhXmrxlaChristus Saint Michael HospitalComment on above:Performed By: #### PINR #### [facility] ([address] [place] [place] [address] VIRCO2 [Moles/Vol]23 mmol/XVcicye73-18YozAqootvZanesville City HospitalComment on above:Performed By: #### PINR #### [address] [place] [address] VIRCreatinine [Mass/Vol]0.77 mg/dLNormal0.70-1.20ProChristus Saint Michael HospitalComment on above:Result Comment: METHOD TRACEABLE TO IDSC STANDARDPerformed By: #### PINR #### [facility] ([address] [place] [place] [address] VIREGFR (CKD-EPI) NON-RACE DEPENDENT>^90Normal>=60ProChristus Saint Michael HospitalComment on above:Result Comment: eGFR not reported due to non- numeric value for Creatinine. Reported eGFR is based on the CKD-EPI 2020 equation that does not use a race coefficient.Performed By: #### PINR #### [facility] ([address] [place] [address] VIRGlucose [Mass/Vol]96 mg/lGGqfzdm73-79HwlXippswChristus Saint Michael HospitalComment on above:Performed By: #### PINR #### [facility] ([address] [place] [address] VIRPotassium [Moles/Vol]3.3 mmol/LLow3.5-5.0ProChristus Saint Michael HospitalComment on above:Performed By: #### PINR #### [facility] ([address] [place] [address] VIRProtein [Mass/Vol]6.0 g/dLNormal6.0-8.0ProChristus Saint Michael HospitalComment on above:Performed By: #### PINR #### [facility] ([address] [place] [address] VIRSodium [Moles/Vol]140 mmol/AIipyci832-421MttLgkljf [facility] HospitalComment on above:Performed By: #### PINR #### [facility] ([address] [place] [address] VIRUrea nitrogen [Mass/Vol]16 mg/dLNormal5-27ProChristus Saint Michael HospitalComment on above:Performed By: #### PINR #### [facility] ([address] [place] [address] VIRComprehensive metabolic panelon 21-59-2708Sanjtfq [Mass/Vol]3 g/dLLow3.2 - 5.3 g/dLProMedica Health SystemALP [Catalytic activity/Vol]109 U/L39 - 130 U/LProMedica Health SystemALT No additional P-5'-P [Catalytic activity/Vol]16 U/LNINF - 40 U/LProMedica Health SystemAnion gap [Moles/Vol]8 mmol/L5 - 15 mmol/LProMedica Health SystemAST [Catalytic activity/Vol]15 U/LNINF - 41 U/LProMedica Health SystemBilirubin [Mass/Vol]0.7 mg/dL0.3 - 1.2 mg/dLProWayne Healthcare Main Campusca Health SystemCalcium [Mass/Vol]8.2 mg/dLLow8.5 - 10.5 mg/dLProUniversity Hospitals [facility] SystemChloride [Moles/Vol]109 mmol/L98 - 109 mmol/L [facility] SystemCO2 [Moles/Vol]23 mmol/L22 - 32 mmol/LProMedFirelands Regional Medical Center SystemCreatinine [Mass/Vol]0.77 mg/dL0.70 - 1.20 mg/dLBrown Memorial Hospital System Comment on above:METHOD TRACEABLE TO IDSC STANDARDEGFR Non-Race Dependent- PINF [facility] HospitalComment on above:eGFR not reported due to non-numeric value for Creatinine. Reported eGFR is based on the CKD-EPI 2020 equation that does not use a race coefficient. Glucose [Mass/Vol]96 mg/dL65 - 99 mg/dLProUniversity Hospitals E[facility] Medical Center SystemPotassium [Moles/Vol]3.3 mmol/LLow3.5 - 5.0 mmol/FirstHealthoMedica Health SystemProtein [Mass/Vol]6 g/dL6.0 - 8.0 g/dLAdena Health System Attunity SystemSodium [Moles/Vol]140 mmol/L134 - 146 mmol/[facility] SystemUrea nitrogen [Mass/Vol]16 mg/dL5 - 27 mg/dLBrown Memorial Hospital SystemFL SMALL BOWELon [id number] SMALL BOWELFL SMALL BOWEL Clinical history: Small bowel obstruction. COMPARISON: 10/11/2024. FINDINGS: Para Educator film reveals a nonspecific nonobstructive bowel gas pattern. Small volume residual contrast noted within decompressed colon. Nasogastric tube is present. 120 mL Gastrografin administered via nasogastric tube. On the 4 hour image there is contrast noted throughout nondilated small bowel. There is some contrast within right hemicolon, however it is unclear if this represents the residual contrast from prior study seen on the contract modeler image. 24 hour image reveals contrast within decompressed colon. IMPRESSION: 1. No evidence for complete small bowel obstruction with contrast identified within decompressed colon on the 24-hour images. Finalized by Luz Marina Louise MD on 10/17/2024 9:05 AMNormalHocking Valley Community HospitalMAGNESIUMon [id number] [Mass/Vol]1.8 mg/dLNormal1.8-2.6 [facility] HospitalComment on above:Performed By: #### PINR #### [facility] ([address] [address] VIRMagnesium [Mass/Vol]1.4 mg/dLLow1.8-2.6H[facility] HospitalComment on above:Performed By: #### PINR #### [facility] ([address] [address] VIRMagnesiumon [id number] and review of laboratory resultsNoUNC Health ChathamMagnesium [Mass/Vol]1.8 mg/dL1.8 - 2.6 mg/dLMile Bluff Medical Center SystemMagnesium [Mass/Vol]1.4 mg/dLLow1.8 - 2.6 mg/dLGreene Memorial HospitalNo Panel Informationon 10-17-2024 Interpretation and review of laboratory resultsAbMarshfield Clinic HospitalPOTASSIUMon [id number] [Moles/Vol]3.7 mmol/L Normal3.5-5.0[facility] HospitalComment on above:Performed By: #### PINR #### [facility] ([address] [address] VIRPotassiumon 56-98-6968Jycbhqqyjrnskf and review of laboratory resultsNormAvita Health System Galion HospitalPotassium [Moles/Vol]3.7 mmol/L 3.5 - 5.0 mmol/LProMedica McLeod Regional Medical Center SystemRF Small bowel Views W contrast Lexie [id number] history: Small bowel obstruction. COMPARISON: 10/11/2024. FINDINGS: Para Educator film reveals a nonspecific nonobstructive bowel gas pattern. Small volume residual contrast noted within decompressed colon. Nasogastric tube is present. 120 mL Gastrografin administered via nasogastric tube. On the 4 hour image there is contrast noted throughout nondilated small bowel. There is some contrast within right hemicolon, however it is unclear if this represents the residual contrast from prior study seen on the contract modeler image. 24 hour image reveals contrast within decompressed colon. IMPRESSION: 1. No evidence for complete small bowel obstruction with contrast identified within decompressed colon on the 24-hour images. Finalized by Luz Marina Louise MD on 10/17/2024 9:05 AMSLu zMarina Schmitz MD - 10/17/2024 Clinical history: Small bowel obstruction. COMPARISON: 10/11/2024. FINDINGS: Para Educator film reveals a nonspecific nonobstructive bowel gas pattern. Small volume residual contrast noted within decompressed colon. Nasogastric tube is present. 120 mL Gastrografin administered via nasogastric tube. On the 4 hour image there is contrast noted throughout nondilated small bowel. There is some contrast within right hemicolon, however it is unclear if this represents the residual contrast from prior study seen on the contract modeler image. 24 hour image reveals contrast within decompressed colon. IMPRESSION: 1. No evidence for complete small bowel obstruction with contrast identified within decompressed colon on the 24-hour images. Finalized by Luz Marina Louise MD on 10/17/2024 9:05 AM [facility] HospitalRadiology Study observation (narrative)[facility] HospitalRF Small bowel Views W contrast POOrdered By: Luz Marina Louise on 10-17-2024 [facility] Work Phone: cbc WITH AUTO DIFFERENTIALon [id number] ABSOLUTE COUNT (10*3/UL) BY AUTOMATED COUNT0.0 10*3/uLNormal0.0-0.2Pro[facility] CenterComment on above:Performed By: #### CBCA #### [facility] ([facility]) [address] [place] [address] VIRBASOPHILS RELATIVE PERCENT BY AUTOMATED COUNT0.5 %Normal [facility] HospitalComsouthwest regional rehabilitation center on above:Performed By: #### CBCA #### [facility] ([address] [place] [address] VIRCELLAVISION DIFFERENTIAL TYPEAUTOMATED DIFFERENTIALNormal [facility] HospitalComment on above:Performed By: #### CBCA #### [facility] ([address] [place] [address] VIREosinophils (Bld) [#/Vol]0.3 10*3/uLNormal0.0-0.4[facility] HospitalComment on above:Performed By: #### CBCA #### [facility] ([address] [address] VIREOSINOPHILS RELATIVE PERCENT BY AUTOMATED COUNT4.4 %Normal [facility] HospitalComsouthwest regional rehabilitation center on above:Performed By: #### CBCA #### [facility] ([address] [address] VIRErythrocyte distribution width (RBC) [Ratio]13.0 %Normal 11.5-15ProChristus Saint Michael HospitalComment on above:Performed By: #### CBCA #### [facility] ([address] [address] VIRHematocrit (Bld) [Volume fraction]34.1 %Csj41-82VceXrwajjChristus Saint Michael HospitalComment on above:Performed By: #### CBCA #### [facility] ([address] [address] VIRHemoglobin (Bld) [Mass/Vol]11.6 g/nVVuj19-19DjbKyseubChristus Saint Michael HospitalComment on above:Performed By: #### CBCA #### [facility] ([address] [address] VIRLYMPHOCYTES ABSOLUTE COUNT (10*3/UL) BY AUTOMATED COUNT1.4 10*3/uLNormal1.0-3.5PZanesville City HospitalComment on above:Performed By: #### CBCA #### [facility] ([facility]) [address] [place] [address] [place] [address] VIRLYMPHOCYTES RELATIVE PERCENT BY AUTOMATED COUNT19.7 %Normal [facility] HospitalComsouthwest regional rehabilitation center on above:Performed By: #### CBCA #### [facility] ([facility]) [address] [place] [address] [place] [address] VIRMCH (RBC) [Entitic mass]32.4 skEqgmak02-77TobYejowmChristus Saint Michael HospitalComment on above:Performed By: #### CBCA #### [facility] ([address] [place] [address] VIRMCHC (RBC) [Mass/Vol]34.1 g/fHZnjeam49-47IsnUcyayoChristus Saint Michael HospitalComment on above:Performed By: #### CBCA #### [facility] ([address] [place] [address] VIRMCV (RBC) [Entitic vol]95 zDIvjphp19-245AuuFpyybz [facility] HospitalComment on above:Performed By: #### CBCA #### [facility] ([facility]) [address] [place] [address] [place] [address] VIRMONOCYTES ABSOLUTE COUNT (10*3/UL) BY AUTOMATED COUNT0.5 10*3/uLNormal0.0-0.9[facility] HospitalComsouthwest regional rehabilitation center on above:Performed By: #### CBCA #### [facility] ([facility]) [address] [place] [address] [place] [address] VIRMONOCYTES RELATIVE PERCENT BY AUTOMATED COUNT7.1 %Normal [facility] HospitalComsouthwest regional rehabilitation center on above:Performed By: #### CBCA #### [facility] ([address] [place] [address] VIRNEUTROPHILS ABSOLUTE COUNT BY AUTOMATED COUNT4.9 10*3/uL Normal1.5-6.6[facility] HospitalComment on above:Performed By: #### CBCA #### [facility] ([facility]) [address] [place] [address] [place] [address] VIRNEUTROPHILS RELATIVE PERCENT BY AUTOMATED COUNT68.3 %Normal [facility] HospitalComment on above:Performed By: #### CBCA #### [facility] ([address] [place] [address] VIRPlatelet mean volume (Bld) [Entitic vol]7.2 fLNormal7-12 [facility] HospitalComment on above:Performed By: #### CBCA #### [facility] ([address] [place] [address] VIRPlatelets (Bld) [#/Vol]181 10*3/sMHnpzop419-537XmaGbjrzc [facility] HospitalComment on above:Performed By: #### CBCA #### [facility] ([facility]) [address] [place] [address] [place] [address] VIRRBC COUNT3.59 X10E12/LLow4.1-5.7[facility] Comment on above:Performed By: #### CBCA #### [facility] ([address] [place] [address] VIRWBC (Bld) [#/Vol]7.2 10*3/uLNormal4-11[facility] HospitalComment on above:Performed By: #### CBCA #### [facility] ([facility]) [address] [place] [address] [place] [address] VIRCBC auto differentialon [id number] (Bld) [#/Vol]0 10*3/uL0.0 - 0.2 10*3/uLProUniversity Hospitals Elyria Medical Center SystemBasophils/100 WBC (Bld)0.5 % [facility] HospitalDifferential cell count method Nom (Bld)AUTOMATED DIFFERENTIALGreene Memorial HospitalEosinophils (Bld) [#/Vol]0.3 10*3/uL0.0 - 0.4 10*3/uLGreene Memorial HospitalEosinophils/100 WBC (Bld)4.4 %[facility] HospitalErythrocyte distribution width (RBC) [Ratio]13 %11.5 - 15 %[facility] HospitalHematocrit (Bld) [Volume fraction]34.1 %Low39 - 50 %[facility] HospitalHemoglobin (Bld) [Mass/Vol]11.6 g/dLLow13 - 17 g/dLGreene Memorial HospitalInterpretation and review of laboratory resultsAbnormalGreene Memorial HospitalLymphocytes (Bld) [#/Vol]1.4 10*3/uL1.0 - 3.5 10*3/uLGreene Memorial HospitalLymphocytes/100 WBC (Bld)19.7 %[facility] HospitalMCH (RBC) [Entitic mass]32.4 pg27 - 34 [facility] HospitalMCHC (RBC) [Mass/Vol]34.1 g/dL32 - 36 g/dLGreene Memorial HospitalMCV (RBC) [Entitic vol]95 fL80 - 100 [facility] SystemMonocytes (Bld) [#/Vol]0.5 10*3/uL0.0 - 0.9 10*3/uLGreene Memorial HospitalMonocytes/100 WBC (Bld)7.1 %[facility] HospitalNeutrophils (Bld) [#/Vol]4.9 10*3/uL1.5 - 6.6 10*3/uLGreene Memorial HospitalNeutrophils/100 WBC (Bld)68.3 %[facility] HospitalPlatelet mean volume (Bld) [Entitic vol]7.2 fL 7 - 12 [facility] SystemPlatelets (Bld) [#/Vol]181 10*3/uLGreene Memorial HospitalRBC (Bld) [#/Vol]3.59 10*6/uLLowGreene Memorial HospitalWBC LM Ql (Sput)7.2PLankenau Medical CenterCOMPREHENSIVE METABOLIC PANELon [id number] [Mass/Vol]3.0 g/dLLow3.2-5.3PZanesville City Hospital Comment on above:Performed By: #### CBCA #### [facility] ([place] [address] [place] [address] VIRALP [Catalytic activity/Vol]107 U/AClisua13-954OzrYgzackChristus Saint Michael HospitalComment on above:Performed By: #### CBCA #### [facility] ([place] [address] [place] [address] VIRALT [Catalytic activity/Vol]16 U/LNormal<=40ProChristus Saint Michael HospitalComment on above:Performed By: #### CBCA #### [facility] ([place] [address] [address] VIRAnion gap [Moles/Vol]9 mmol/LNormal5-15ProChristus Saint Michael HospitalComment on above:Performed By: #### CBCA #### [facility] ([address] [address] VIRAST [Catalytic activity/Vol]14 U/LNormal<=41ProChristus Saint Michael HospitalComment on above:Performed By: #### CBCA #### [facility] ([place] [address] [place] [address] VIRBilirubin [Mass/Vol]0.5 mg/dLNormal0.3-1.2PZanesville City HospitalComment on above:Performed By: #### CBCA #### [facility] ([address] [address] VIRCalcium [Mass/Vol]8.2 mg/dLLow8.5-10.5PZanesville City HospitalComment on above:Performed By: #### CBCA #### [facility] ([place] [address] [place] [address] VIRChloride [Moles/Vol]114 mmol/FYfms35-862UlySkciadChristus Saint Michael HospitalComment on above:Performed By: #### CBCA #### [facility] ([address] [address] VIRCO2 [Moles/Vol]19 mmol/PAts73-99HoxBshjetFremont Hospital Comment on above:Performed By: #### CBCA #### [facility] ([address] [address] VIRCreatinine [Mass/Vol]0.77 mg/dLNormal0.70-1.20ProChristus Saint Michael HospitalComment on above:Result Comment: METHOD TRACEABLE TO IDMS STANDARDPerformed By: #### CBCA #### [facility] ([address] [address] VIREGFR (CKD-EPI) NON-RACE DEPENDENT>^90Normal>=60ProChristus Saint Michael HospitalComment on above:Result Comment: eGFR not reported due to non- numeric value for Creatinine. Reported eGFR is based on the CKD-EPI 2021 equation that does not use a race coefficient.Performed By: #### CBCA #### [facility] ([address] [address] VIRGlucose [Mass/Vol]83 mg/oNNxllch70-72QjvSfthgyChristus Saint Michael HospitalComment on above:Performed By: #### CBCA #### [facility] ([address] [address] VIRPotassium [Moles/Vol]3.9 mmol/LNormal3.5-5.0ProChristus Saint Michael HospitalComment on above:Performed By: #### CBCA #### [facility] ([address] [address] VIRProtein [Mass/Vol]6.1 g/dLNormal6.0-8.0ProChristus Saint Michael HospitalComment on above:Performed By: #### CBCA #### [facility] ([facility]) [address] [place] [address] VIRSodium [Moles/Vol]142 mmol/PFsqitb961-050ZatAzoogx Fremont HospitalComment on above:Performed By: #### CBCA #### [facility] ([facility]) [address] [place] [address] VIRUrea nitrogen [Mass/Vol]20 mg/dLNormal5-27ProChristus Saint Michael HospitalComment on above:Performed By: #### CBCA #### [facility] ([facility]) [address] [place] [address] VIRComprehensive metabolic panelon 50-24-3484Nipnovc [Mass/Vol]3 g/dLLow3.2 - 5.3 g/dLProHelen Keller Hospital Health SystemALP [Catalytic activity/Vol]107 U/L39 - 130 U/[facility] Health SystemALT No additional P-5'-P [Catalytic activity/Vol]16 U/LNINF - 40 U/LProMedica Health SystemAnion gap [Moles/Vol]9 mmol/L5 - 15 mmol/LProMedica Health SystemAST [Catalytic activity/Vol]14 U/LNINF - 41 U/LProMedica Health SystemBilirubin [Mass/Vol]0.5 mg/dL0.3 - 1.2 mg/dLProHelen Keller Hospital Health SystemCalcium [Mass/Vol]8.2 mg/dLLow8.5 - 10.5 mg/dLProWayne Healthcare Main Campusca Health SystemChloride [Moles/Vol]114 mmol/LHigh98 - 109 mmol/LProMedica Health SystemCO2 [Moles/Vol]19 mmol/LLow22 - 32 mmol/[facility] Clubica Health SystemCreatinine [Mass/Vol]0.77 mg/dL0.70 - 1.20 mg/dLGreene Memorial HospitalComment on above:METHOD TRACEABLE TO IDMS STANDARDEGFR Non-Race Dependent- [facility] Community HospitalComment on above:eGFR not reported due to non- numeric value for Creatinine. Reported eGFR is based on the CKD-EPI 202 equation that does not use a race coefficient. Glucose [Mass/Vol]83 mg/dL65 - 99 mg/dLBrown Memorial Hospital SystemPotassium [Moles/Vol]3.9 mmol/L3.5 - 5.0 mmol/LProMedica Health SystemProtein [Mass/Vol] 6.1 g/dL6.0 - 8.0 g/dLBrown Memorial Hospital SystemSodium [Moles/Vol]142 mmol/L134 - 146 mmol/LProMedica Health SystemUrea nitrogen [Mass/Vol]20 mg/dL5 - 27 mg/dL [facility] Memorial HospitalMAGNESIUMon [id number] [Mass/Vol]1.7 mg/dLLow 1.8-2.6[facility] HospitalComment on above:Performed By: #### CBCA #### [facility] ([address] [address] VIRMagnesiumon 27-09-9582Rbkqqnomy [Mass/Vol]1.7 mg/dLLow1.8 - 2.6 mg/dLGreene Memorial HospitalNo Panel Informationon [id number] and review of laboratory resultsAbnormalSelect Specialty Hospital - Pittsburgh UPMCPST TOPon [id number] TubeAuto ResultedTemple University Health SystemCBC WITH AUTO DIFFERENTIALon [id number] ABSOLUTE COUNT (10*3/UL) BY AUTOMATED COUNT0.1 10*3/uLNormal0.0-0.2PZanesville City HospitalComment on above:Performed By: #### CBCA #### [facility] ([address] [address] VIRBASOPHILS RELATIVE PERCENT BY AUTOMATED COUNT0.4 %Normal [facility] HospitalComment on above:Performed By: #### CBCA #### [facility] ([address] [address] VIRCELLAVISION DIFFERENTIAL TYPEAUTOMATED DIFFERENTIALNormal [facility] HospitalComment on above:Performed By: #### CBCA #### [facility] ([address] [place] [address] VIREosinophils (Bld) [#/Vol]0.4 10*3/uLNormal0.0-0.4[facility] HospitalComment on above:Performed By: #### CBCA #### [facility] ([address] [place] [address] VIREOSINOPHILS RELATIVE PERCENT BY AUTOMATED COUNT3.2 %Normal [facility] HospitalComment on above:Performed By: #### CBCA #### [facility] ([address] [place] [address] VIRErythrocyte distribution width (RBC) [Ratio]13.1 %Normal 11.5-15[facility] HospitalComment on above:Performed By: #### CBCA #### [facility] ([address] [place] [address] VIRHematocrit (Bld) [Volume fraction]38.0 %Lqm49-46WnuIrqyjdChristus Saint Michael HospitalComment on above:Performed By: #### CBCA #### [facility] ([address] [place] [address] VIRHemoglobin (Bld) [Mass/Vol]12.8 g/nISxl94-50IdeXoglhzHocking Valley Community HospitalComment on above:Performed By: #### CBCA #### [facility] ([address] [place] [address] VIRLYMPHOCYTES ABSOLUTE COUNT (10*3/UL) BY AUTOMATED COUNT1.9 10*3/uLNormal1.0-3.5PZanesville City HospitalComment on above:Performed By: #### CBCA #### [facility] ([address] [place] [address] VIRLYMPHOCYTES RELATIVE PERCENT BY AUTOMATED COUNT16.7 %Normal [facility] HospitalComment on above:Performed By: #### CBCA #### [facility] ([address] [place] [address] VIRMCH (RBC) [Entitic mass]31.8 vxFzmlkd26-05RggViywtaChristus Saint Michael HospitalComment on above:Performed By: #### CBCA #### [facility] ([address] [place] [address] VIRMCHC (RBC) [Mass/Vol]33.7 g/iVLjqrhl64-80PtlGxjkpjChristus Saint Michael HospitalComment on above:Performed By: #### CBCA #### [facility] ([address] [place] [address] VIRMCV (RBC) [Entitic vol]95 uEIvdhgm99-174ItfOuyhvu [facility]ont HospitalComment on above:Performed By: #### CBCA #### [facility] ([address] [place] [address] VIRMONOCYTES ABSOLUTE COUNT (10*3/UL) BY AUTOMATED COUNT0.8 10*3/uLNormal0.0-0.9[facility] HospitalComment on above:Performed By: #### CBCA #### [facility] ([address] [place] [address] VIRMONOCYTES RELATIVE PERCENT BY AUTOMATED COUNT7.3 %Normal [facility] HospitalComment on above:Performed By: #### CBCA #### [facility] ([address] [place] [address] VIRNEUTROPHILS ABSOLUTE COUNT BY AUTOMATED COUNT8.3 10*3/uL High1.5-6.6ProChristus Saint Michael HospitalComsouthwest regional rehabilitation center on above:Performed By: #### CBCA #### [facility] ([address] [place] [address] VIRNEUTROPHILS RELATIVE PERCENT BY AUTOMATED COUNT72.4 %Normal [facility] HospitalComment on above:Performed By: #### CBCA #### [facility] ([address] [place] [address] VIRPlatelet mean volume (Bld) [Entitic vol]7.5 fLNormal7-12 [facility] HospitalComment on above:Performed By: #### CBCA #### [facility] ([address] [place] [address] VIRPlatelets (Bld) [#/Vol]251 10*3/tXYhafjl159-722LqqCuhtkvHocking Valley Community HospitalComment on above:Performed By: #### CBCA #### [facility] ([address] [address] VIRRBC COUNT4.01 X10E12/LLow4.1-5.7[facility] Comment on above:Performed By: #### CBCA #### [facility] ([address] [address] VIRWBC (Bld) [#/Vol]11.4 10*3/uLHigh4-11[facility] HospitalComment on above:Performed By: #### CBCA #### [facility] ([address] [address] VIRCBC auto differentialon [id number] (Bld) [#/Vol] 0.1 10*3/uL0.0 - 0.2 10*3/uLBrown Memorial Hospital SystemBasophils/100 WBC (Bld)0.4 % [facility] Memorial HospitalDifferential cell count method Nom (Bld)AUTOMATED DIFFERENTIALGreene Memorial HospitalEosinophils (Bld) [#/Vol]0.4 10*3/uL0.0 - 0.4 10*3/uLProUniversity Hospitals Elyria Medical Center SystemEosinophils/100 WBC (Bld)3.2 %Gre[facility] Memorial HospitalErythrocyte distribution width (RBC) [Ratio]13.1 %11.5 - 15 %Gre[facility] Memorial HospitalHematocrit (Bld) [Volume fraction]38 %Low39 - 50 %Gre[facility] Memorial HospitalHemoglobin (Bld) [Mass/Vol]12.8 g/dLLow13 - 17 g/dLGreene Memorial Hospital Interpretation and review of laboratory resultsAbnoUNC Health Chatham Lymphocytes (Bld) [#/Vol]1.9 10*3/uL1.0 - 3.5 10*3/uLGreene Memorial Hospital Lymphocytes/100 WBC (Bld)16.7 %[facility] HospitalH (RBC) [Entitic mass] 31.8 pg27 - 34 pgPClinton Memorial HospitalMCHC (RBC) [Mass/Vol]33.7 g/dL32 - 36 g/dLGreene Memorial HospitalMCV (RBC) [Entitic vol]95 fL80 - 100 [facility] SystemMonocytes (Bld) [#/Vol]0.8 10*3/uL0.0 - 0.9 10*3/uLGreene Memorial HospitalMonocytes/100 WBC (Bld)7.3 %[facility] HospitalNeutrophils (Bld) [#/Vol]8.3 10*3/uLHigh1.5 - 6.6 10*3/uLGreene Memorial HospitalNeutrophils/100 WBC (Bld)72.4 %[facility] Memorial HospitalPlatelet mean volume (Bld) [Entitic vol] 7.5 fL7 - 12 [facility] Health SystemPlatelets (Bld) [#/Vol]251 10*3/uL Greene Memorial HospitalRBC (Bld) [#/Vol]4.01 10*6/uLCleveland Clinic Euclid Hospital WBC LM Ql (Sput)11.4HighSelect Specialty Hospital - Pittsburgh [facility] COMPREHENSIVE METABOLIC PANELon 54-07-6049Vbzfeni [Mass/Vol]3.5 g/dLNormal 3.2-5.3PZanesville City HospitalComment on above:Performed By: #### CBCA #### [facility] ([address] [place] [address] VIRALP [Catalytic activity/Vol]126 U/XCkejsa48-674FvbIlxrooChristus Saint Michael HospitalComment on above:Performed By: #### CBCA #### [facility] ([place] [address] [place] [address] VIRALT [Catalytic activity/Vol]21 U/LNormal<=40ProChristus Saint Michael HospitalComment on above:Performed By: #### CBCA #### [facility] ([place] [address] [place] [address] VIRAnion gap [Moles/Vol]10 mmol/LNormal5-15ProChristus Saint Michael HospitalComment on above:Performed By: #### CBCA #### [facility] ([address] [address] VIRAST [Catalytic activity/Vol]16 U/LNormal<=41ProChristus Saint Michael HospitalComment on above:Performed By: #### CBCA #### [facility] ([place] [address] [place] [address] VIRBilirubin [Mass/Vol]0.1 mg/dLLow0.3-1.2PZanesville City HospitalComment on above:Performed By: #### CBCA #### [facility] ([address] [address] VIRCalcium [Mass/Vol]8.5 mg/dLNormal8.5-10.5PZanesville City HospitalComment on above:Performed By: #### CBCA #### [facility] ([place] [address] [place] [address] VIRChloride [Moles/Vol]109 mmol/MBpolqg00-329KphSbfrqsChristus Saint Michael HospitalComment on above:Performed By: #### CBCA #### [facility] ([place] [address] [place] [address] VIRCO2 [Moles/Vol]23 mmol/BXpbmfr25-80MwyBbuirdZanesville City HospitalComment on above:Performed By: #### CBCA #### [facility] ([address] [address] VIRCreatinine [Mass/Vol]0.97 mg/dLNormal0.70-1.20[facility] HospitalComment on above:Result Comment: METHOD TRACEABLE TO IDMS STANDARDPerformed By: #### CBCA #### [facility] ([address] [address] VIRGFR/1.73 sq M.predicted among non-blacks MDRD (S/P/Bld) [Vol rate/Area]85 mL/min/{1.73_m2}Normal>=60ProChristus Saint Michael HospitalComment on above:Result Comment: eGFR not reported due to non-numeric value for Creatinine. Reported eGFR is based on the CKD-EPI 2020 equation that does not use a race coefficient.Performed By: #### CBCA #### [facility] ([address] [address] VIRGlucose [Mass/Vol]108 mg/oTIuni05-76VwhDspthbChristus Saint Michael HospitalComment on above:Performed By: #### CBCA #### [facility] ([address] [address] VIRPotassium [Moles/Vol]3.9 mmol/LNormal3.5-5.0ProChristus Saint Michael HospitalComment on above:Performed By: #### CBCA #### [facility] ([address] [address] VIRProtein [Mass/Vol]7.0 g/dLNormal6.0-8.0ProChristus Saint Michael HospitalComment on above:Performed By: #### CBCA #### [facility] ([address] [address] VIRSodium [Moles/Vol]142 mmol/OTctpmo864-088HwvSqnjft Fremont HospitalComment on above:Performed By: #### GIDEON #### [facility] ([facility]) [address] [place] [address] [place] [address] VIRUrea nitrogen [Mass/Vol]28 mg/dLHigh5-27ProChristus Saint Michael HospitalComment on above:Performed By: #### GIDEON #### [facility] ([address] [place] [address] VIRComprehensive metabolic panelon 26-39-7579Qjoefuc [Mass/Vol]3.5 g/dL3.2 - 5.3 g/dLProHelen Keller Hospital Health SystemALP [Catalytic activity/Vol]126 U/L39 - 130 U/LProMedica Health SystemALT No additional P-5'-P [Catalytic activity/Vol]21 U/LNINF - 40 U/LProMedica Health SystemAnion gap [Moles/Vol]10 mmol/L5 - 15 mmol/LProMedica Health SystemAST [Catalytic activity/Vol]16 U/LNINF - 41 U/LProMedica Health SystemBilirubin [Mass/Vol]0.1 mg/dLLow0.3 - 1.2 mg/dLProWayne Healthcare Main Campusca Health SystemCalcium [Mass/Vol]8.5 mg/dL8.5 - 10.5 mg/dLProWayne Healthcare Main Campusca Health SystemChloride [Moles/Vol]109 mmol/L98 - 109 mmol/L ProMbrookwood baptist medical center Health SystemCO2 [Moles/Vol]23 mmol/L22 - 32 mmol/LProMedica Health SystemCreatinine [Mass/Vol]0.97 mg/dL0.70 - 1.20 mg/dLBrown Memorial Hospital System Comment on above:METHOD TRACEABLE TO IDSC STANDARDEGFR Non-Race Zxrksuexu55- [facility] County Community HospitalComment on above:eGFR not reported due to non-numeric value for Creatinine. Reported eGFR is based on the CKD-EPI 2021 equation that does not use a race coefficient. Glucose [Mass/Vol]108 mg/bUWvxw26 - 99 mg/dLProHelen Keller Hospital Health SystemPotassium [Moles/Vol]3.9 mmol/L3.5 - 5.0 mmol/LProMedica Health SystemProtein [Mass/Vol]7 g/dL6.0 - 8.0 g/dLProMedica Health SystemSodium [Moles/Vol]142 mmol/L134 - 146 mmol/LProMedica Bellevue Hospital SystemUrea nitrogen [Mass/Vol]28 mg/dLHigh5 - 27 mg/dL Greene Memorial HospitalLIPASEon 72-59-6175Cxviey [Catalytic activity/Vol]45 U/L Aocs61-03DneXykwrzHocking Valley Community HospitalComment on above:Performed By: #### CBCA #### [facility] ([address] [place] [address] VIRLipaseon 24-13-1962Agdfvu [Catalytic activity/Vol]45 U/L High17 - 40 U/LProMedica Bellevue Hospital SystemMAGNESIUMon 26-73-2611Cztdtlzkj [Mass/Vol] 2.4 mg/dLNormal1.8-2.6[facility] HospitalComment on above:Performed By: #### MG #### [facility] ([address] [place] [address] VIRMagnesiumon 73-02-0878Jvxdajpjqixibc and review of laboratory resultsNoUNC Health ChathamMagnesium [Mass/Vol]2.4 mg/dL1.8 - 2.6 mg/dLGreene Memorial HospitalNo Panel Informationon 10-15-2024 Interpretation and review of laboratory resultsAbnoGundersen Boscobel Area Hospital and ClinicsPROCALCITONINon [id number]<^0.05Normal<0.05 [facility] HospitalComment on above:Order Comment: <0.50 ng/mL - Low risk of severe sepsis and/or septic shock.<2.00 ng/mL - Recommend retesting within 6-24 hours.>2.00 ng/mL - High risk of sepsis and/or septic shock.Performed By: #### CBCA #### [facility] ([address] [place] [address] VIRProcalcitoninon [id number] and review of laboratory resultsNoUNC Health ChathamProcalcitonin IA [Mass/Vol]ng/mL [facility] - 0.05 ng/mLGreene Memorial Hospital<0.50 ng/mL - Low risk of severe sepsis and/or septic shock. <2.00 ng/mL - Recommend retesting within 6-24 hours. >2.00 ng/mL - High risk of sepsis and/or septic shock.[facility] SystemXR ABDOMEN AP 1 VWon [id number] ABDOMEN AP 1 VWXR ABDOMEN AP 1 VW History: Small bowel obstruction Exam/Technique: A portable supine views of the abdomen were obtained. Comparison: 10/14/2024 Findings: There has been improvement in the small bowel dilatation seen on the prior study. Gas distended small bowel persists but decreased in caliber and number since the prior study. Gas is seen in the colon to the level the rectum. Nasogastric tube remains in place. IMPRESSION: Improved but persistent small bowel dilatation. Finalized by David Do MD on 10/15/2024 10:49 [facility] CampusXR Abdomen APon [id number]: Small bowel obstruction Exam/Technique: A portable supine views of the abdomen were obtained. Comparison: 10/14/2024 Findings: There has been improvement in the small bowel dilatation seen on the prior study. Gas distended small bowel persists but decreased in caliber and number since the prior study. Gas is seen in the colon to the level the rectum. Nasogastric tube remains in place. IMPRESSION: Improved but persistent small bowel dilatation. Finalized by David Do MD on 10/15/2024 10:49 PMSECTRAPACSCervantes, David Cabrera MD - 10/15/2024 History: Small bowel obstruction Exam/Technique: A portable supine views of the abdomen were obtained. Comparison: 10/14/2024 Findings: There has been improvement in the small bowel dilatation seen on the prior study. Gas distended small bowel persists but decreased in caliber and number since the prior study. Gas is seen in the colon to the level the rectum. Nasogastric tube remains in place. IMPRESSION: Improved but persistent small bowel dilatation. Finalized by David Do MD on 10/15/2024 10:49 PM [facility] Attunity [facility] HospitalRadiology Study observation (narrative)[facility] Attunity [facility] HospitalXR Abdomen APOrdered By: David Do on [id number] Memorial Hospital Work Phone: XR CHEST 2 VWSon [id number] CHEST 2 VWSXR CHEST 2 VWS Chest 2 views History: Coarse rhonchi throughout all lung matta rule out pneumonia versus atelectasis Comparison: 10/11/2024 Findings: Chest 2 views. Stable cardiomegaly mediastinal silhouette. This patient rotation towards the left compromising assessment. There is no pneumothorax. There is bilateral lower lung atelectasis. Impression: Stable appearance of the chest and likely bilateral lower lung atelectasis. Finalized by Iriwn Rivera MD on 10/15/2024 7:45 AMNPremier HealthXR Chest PA and Lateralon [id number] 2 views History: Coarse rhonchi throughout all lung matta rule out pneumonia versus atelectasis Comparison: 10/11/2024 Findings: Chest 2 views. Stable cardiomegaly mediastinal silhouette. This patient rotation towards the left compromising assessment. There is no pneumothorax. There is bilateral lower lung atelectasis. Impression: Stable appearance of the chest and likely bilateral lower lung atelectasis. Finalized by Irwin Rivera MD on 10/15/2024 7:45 AMSIrwin Werner MD - 10/15/2024 Chest 2 views History: Coarse rhonchi throughout all lung matta rule out pneumonia versus atelectasis Comparison: 10/11/2024 Findings: Chest 2 views. Stable cardiomegaly mediastinal silhouette. This patient rotation towards the left compromising assessment. There is no pneumothorax. There is bilateral lower lung atelectasis. Impression: Stable appearance of the chest and likely bilateral lower lung atelectasis. Finalized by Irwin Rivera MD on 10/15/2024 7:45 AM [facility] SystemRadiology Study observation (narrative)[facility] [id number] Coag (PPP) [Time]26 s [facility] SystemaPTT Coag (Bld) [Time]26 gXlxjvs17-92UtsQafqjtChristus Saint Michael HospitalComment on above:Performed By: #### PTT #### [facility] ([address] [address] VIRCBC WITH AUTO DIFFERENTIALon [id number] ABSOLUTE COUNT (10*3/UL) BY AUTOMATED COUNT0.1 10*3/uLNormal0.0-0.2ProMedFremont HospitalComment on above:Performed By: #### CBCA #### [facility] ([address] [address] VIRBASOPHILS RELATIVE PERCENT BY AUTOMATED COUNT0.5 %Normal [facility] HospitalComment on above:Performed By: #### CBCA #### [facility] ([address] [address] VIRCELLAVISION DIFFERENTIAL TYPEAUTOMATED DIFFERENTIALNormal [facility] HospitalComment on above:Performed By: #### CBCA #### [facility] ([address] [address] VIREosinophils (Bld) [#/Vol]0.1 10*3/uLNormal0.0-0.4[facility] HospitalComment on above:Performed By: #### CBCA #### [facility] ([address] [address] VIREOSINOPHILS RELATIVE PERCENT BY AUTOMATED COUNT0.6 %Normal [facility] HospitalComment on above:Performed By: #### CBCA #### [facility] ([address] [address] VIRErythrocyte distribution width (RBC) [Ratio]12.9 %Normal 11.5-15ProChristus Saint Michael HospitalComment on above:Performed By: #### CBCA #### [facility] [place] [address] VIRHematocrit (Bld) [Volume fraction]44.5 %Ckdodi88-36 [facility] HospitalComment on above:Performed By: #### CBCA #### [facility] ([address] [place] [address] VIRHemoglobin (Bld) [Mass/Vol]14.9 g/eWGuifbh75-14DfcSrudqyChristus Saint Michael HospitalComment on above:Performed By: #### CBCA #### [facility] ([address] [address] VIRLYMPHOCYTES ABSOLUTE COUNT (10*3/UL) BY AUTOMATED COUNT2.5 10*3/uLNormal1.0-3.5PZanesville City HospitalComment on above:Performed By: #### CBCA #### [facility] ([address] [address] VIRLYMPHOCYTES RELATIVE PERCENT BY AUTOMATED COUNT17.1 %Normal [facility] HospitalComment on above:Performed By: #### CBCA #### [facility] ([address] [address] VIRMCH (RBC) [Entitic mass]31.7 uvWzmnqf16-62HuuAtgqwlHocking Valley Community HospitalComment on above:Performed By: #### CBCA #### [facility] ([address] [address] VIRMCHC (RBC) [Mass/Vol]33.4 g/pHLuwpng43-58RtkGiqafzChristus Saint Michael HospitalComment on above:Performed By: #### CBCA #### [facility] ([address] [place] [address] VIRMCV (RBC) [Entitic vol]95 kSZqyrhi27-268WskKklmed [facility]remont HospitalComment on above:Performed By: #### CBCA #### [facility] ([facility]) [address] [place] [address] [place] [address] VIRMONOCYTES ABSOLUTE COUNT (10*3/UL) BY AUTOMATED COUNT0.9 10*3/uLNormal0.0-0.9[facility] HospitalComment on above:Performed By: #### CBCA #### [facility] ([facility]) [address] [place] [address] [place] [address] VIRMONOCYTES RELATIVE PERCENT BY AUTOMATED COUNT6.5 %Normal [facility] HospitalComment on above:Performed By: #### CBCA #### [facility] ([address] [place] [address] VIRNEUTROPHILS ABSOLUTE COUNT BY AUTOMATED COUNT10.8 10*3/uL High1.5-6.6ProChristus Saint Michael HospitalComment on above:Performed By: #### CBCA #### [facility] ([address] [place] [address] VIRNEUTROPHILS RELATIVE PERCENT BY AUTOMATED COUNT75.3 %Normal [facility] HospitalComment on above:Performed By: #### CBCA #### [facility] ([address] [place] [address] VIRPlatelet mean volume (Bld) [Entitic vol]7.6 fLNormal7-12 [facility] Community HospitalComment on above:Performed By: #### CBCA #### [facility] ([address] [place] [address] VIRPlatelets (Bld) [#/Vol]354 10*3/oUGijrvv314-963WfaXuavwa Fremont HospitalComment on above:Performed By: #### CBCA #### [facility] ([address] [place] [address] VIRRBC COUNT4.68 X10E12/LNormal4.1-5.7ProWood County Hospital HospitalComment on above:Performed By: #### CBCA #### [facility] ([address] [place] [address] VIRWBC (Bld) [#/Vol]14.4 10*3/uLHigh4-11[facility] HospitalComment on above:Performed By: #### CBCA #### [facility] ([address] [place] [address] VIRCBC auto differentialon [id number] (Bld) [#/Vol] 0.1 10*3/uL0.0 - 0.2 10*3/uLGreene Memorial HospitalBasophils/100 WBC (Bld)0.5 % [facility] HospitalDifferential cell count method Nom (Bld)AUTOMATED DIFFERENTIALGreene Memorial HospitalEosinophils (Bld) [#/Vol]0.1 10*3/uL0.0 - 0.4 10*3/uLGreene Memorial HospitalEosinophils/100 WBC (Bld)0.6 %[facility] Memorial HospitalErythrocyte distribution width (RBC) [Ratio]12.9 %11.5 - 15 %[facility] HospitalHematocrit (Bld) [Volume fraction]44.5 %39 - 50 %[facility] HospitalHemoglobin (Bld) [Mass/Vol]14.9 g/dL13 - 17 g/dLGreene Memorial Hospital Interpretation and review of laboratory resultsAbnormalGreene Memorial Hospital Lymphocytes (Bld) [#/Vol]2.5 10*3/uL1.0 - 3.5 10*3/uLGreene Memorial Hospital Lymphocytes/100 WBC (Bld)17.1 %[facility] Memorial HospitalMCH (RBC) [Entitic mass] 31.7 pg27 - 34 pgPClinton Memorial HospitalMCHC (RBC) [Mass/Vol]33.4 g/dL32 - 36 g/dLGreene Memorial HospitalMCV (RBC) [Entitic vol]95 fL80 - 100 [facility] SystemMonocytes (Bld) [#/Vol]0.9 10*3/uL0.0 - 0.9 10*3/uLBrown Memorial Hospital SystemMonocytes/100 WBC (Bld)6.5 %[facility] SystemNeutrophils (Bld) [#/Vol]10.8 10*3/uLHigh1.5 - 6.6 10*3/uLProUniversity [facility]als [facility] SystemNeutrophils/100 WBC (Bld)75.3 %[facility] SystemPlatelet mean volume (Bld) [Entitic vol] 7.6 fL7 - 12 [facility] SystemPlatelets (Bld) [#/Vol]354 10*3/uL [facility] SystemRBC (Bld) [#/Vol]4.68 10*6/uLBrown Memorial Hospital SystemWBC LM Ql (Sput)14.4HPrime Healthcare ServicesCOMPREHENSIVE METABOLIC PANELon [id number] [Mass/Vol]4.4 g/dLNormal3.2-5.3PZanesville City HospitalComment on above:Performed By: #### CMP #### [facility] ([facility]) [address] [place] [address] [place] [address] VIRALP [Catalytic activity/Vol]156 U/AOscx01-496NasPenvhcChristus Saint Michael HospitalComment on above:Performed By: #### CMP #### [facility] ([facility]) [address] [place] [address] [place] [address] VIRALT [Catalytic activity/Vol]28 U/LNormal<=40H[facility] HospitalComment on above:Performed By: #### CMP #### [facility] ([facility]) [address] [place] [address] [place] [address] VIRAnion gap [Moles/Vol]9 mmol/LNormal5-15ProChristus Saint Michael HospitalComment on above:Performed By: #### CMP #### [facility] ([facility]) [address] [place] [address] [place] [address] VIRAST [Catalytic activity/Vol]22 U/LNormal<=41ProChristus Saint Michael HospitalComment on above:Performed By: #### CMP #### [facility] ([address] [place] [address] VIRBilirubin [Mass/Vol]0.6 mg/dLNormal0.3-1.2PZanesville City HospitalComment on above:Performed By: #### CMP #### [facility] ([address] [place] [address] VIRCalcium [Mass/Vol]9.4 mg/dLNormal8.5-10.5PZanesville City HospitalComment on above:Performed By: #### CMP #### [facility] ([address] [place] [address] VIRChloride [Moles/Vol]107 mmol/OCdyoze29-367TgzYxvjglChristus Saint Michael HospitalComment on above:Performed By: #### CMP #### [facility] ([address] [place] [address] VIRCO2 [Moles/Vol]21 mmol/OIns93-90VhfMcignoZanesville City Hospital Comment on above:Performed By: #### CMP #### [facility] ([address] [address] VIRCreatinine [Mass/Vol]1.17 mg/dLNormal0.70-1.20ProChristus Saint Michael HospitalComment on above:Result Comment: METHOD TRACEABLE TO IDMS STANDARDPerformed By: #### CMP #### [facility] ([address] [address] VIRGFR/1.73 sq M.predicted among non-blacks MDRD (S/P/Bld) [Vol rate/Area]68 mL/min/{1.73_m2}Normal>=60ProChristus Saint Michael HospitalComment on above:Result Comment: eGFR not reported due to non-numeric value for Creatinine. Reported eGFR is based on the CKD-EPI 2020 equation that does not use a race coefficient.Performed By: #### CMP #### [facility] ([address] [place] [address] VIRGlucose [Mass/Vol]122 mg/iJMtvc98-58ItuHkpobeChristus Saint Michael HospitalComment on above:Performed By: #### CMP #### [facility] ([address] [place] [address] VIRPotassium [Moles/Vol]3.6 mmol/LNormal3.5-5.0ProChristus Saint Michael HospitalComment on above:Performed By: #### CMP #### [facility] ([address] [place] [address] VIRProtein [Mass/Vol]8.8 g/dLHigh6.0-8.0ProChristus Saint Michael HospitalComment on above:Performed By: #### CMP #### [facility] ([address] [place] [address] VIRSodium [Moles/Vol]137 mmol/CDkpfvf147-582TnqWselod Fremont HospitalComment on above:Performed By: #### CMP #### [facility] ([address] [place] [address] VIRUrea nitrogen [Mass/Vol]32 mg/dLHigh5-27ProChristus Saint Michael HospitalComment on above:Performed By: #### CMP #### [facility] ([address] [place] [address] VIRCT ABDOMEN AND PELVIS W CONTon [id number] ABDOMEN AND PELVIS W CONTCT ABDOMEN AND PELVIS W CONT STUDY: ABDOMEN AND PELVIS CT WITH CONTRAST CLINICAL HISTORY: Abdominal pain. Small bowel obstruction. Questionable small bowel obstruction COMPARISON: 04/07/2023 TECHNIQUE: CT abdomen and pelvis was performed utilizing 5 mm axial reconstructions following the uneventful administration of 100 cc Omnipaque 300 nonionic intravenous contrast. Coronal and sagittalreformatted images as well as delayed excretory phase images were obtained and reviewed. Automated exposure control was utilized. FINDINGS: Abdomen: No pleural or pericardial effusion and lung bases. Dependent changes and atelectasis in both lungs. Severe distention of the stomach. There is fluid-filled dilated small bowel loops with relatively decompressed distal small bowel loops could represent evolving ileus or obstruction. There is no evidence of free intraperitoneal gas. The liver, adrenal glands, pancreas and spleen appear grossly unremarkable. There is a calcified subcapsular left renal lesion stable likely representing sequela of prior subcapsular hematoma. No renal collecting system dilatation. No enlarged mesenteric or retroperitoneal lymph nodes. Pelvis: No free pelvic fluid. No enlarged pelvic lymph nodes. Urinary bladder is grossly unremarkable. Degenerative change of the thoracolumbar spine. No vertebral body height loss. IMPRESSION: 1. Fluid-filled mildly dilated proximal small bowel loops and distention of the stomach represent evolving small bowel obstruction or ileus. Consider Gastrografin challenge. All CT scans at this facility use dose modulation, iterative reconstruction, and/or weight based dosing when appropriate to reduce radiation dose to as low as reasonably achievable. Finalized by Irwin Rivera MD on 10/14/2024 2:19 [facility] CampusCT Abdomen and Pelvis W contrast Sky [id number]: ABDOMEN AND PELVIS CT WITH CONTRAST CLINICAL HISTORY: Abdominal pain. Small bowel obstruction. Questionable small bowel obstruction COMPARISON: 04/07/2023 TECHNIQUE: CT abdomen and pelvis was performed utilizing 5 mm axial reconstructions following the uneventful administration of 100 cc Omnipaque 300 nonionic intravenous contrast. Coronal and sagittalreformatted images as well as delayed excretory phase images were obtained and reviewed. Automated exposure control was utilized. FINDINGS: Abdomen: No pleural or pericardial effusion and lung bases. Dependent changes and atelectasis in both lungs. Severe distention of the stomach. There is fluid-filled dilated small bowel loops with relatively decompressed distal small bowel loops could represent evolving ileus or obstruction. There is no evidence of free intraperitoneal gas. The liver, adrenal glands, pancreas and spleen appear grossly unremarkable. There is a calcified subcapsular left renal lesion stable likely representing sequela of prior subcapsular hematoma. No renal collecting system dilatation. No enlarged mesenteric or retroperitoneal lymph nodes. Pelvis: No free pelvic fluid. No enlarged pelvic lymph nodes. Urinary bladder is grossly unremarkable. Degenerative change of the thoracolumbar spine. No vertebral body height loss. IMPRESSION: 1. Fluid-filled mildly dilated proximal small bowel loops and distention of the stomach represent evolving small bowel obstruction or ileus. Consider Gastrografin challenge. All CT scans at this facility use dose modulation, iterative reconstruction, and/or weight based dosing when appropriate to reduce radiation dose to as low as reasonably achievable. Finalized by Irwin Rivera MD on 10/14/2024 2:19 PMSECTSt. Joseph Medical CenterIrwin salcedo MD - 10/14/2024 STUDY: ABDOMEN AND PELVIS CT WITH CONTRAST CLINICAL HISTORY: Abdominal pain. Small bowel obstruction. Questionable small bowel obstruction COMPARISON: 04/07/2023 TECHNIQUE: CT abdomen and pelvis was performed utilizing 5 mm axial reconstructions following the uneventful administration of 100 cc Omnipaque 300 nonionic intravenous contrast. Coronal and sagittalreformatted images as well as delayed excretory phase images were obtained and reviewed. Automated exposure control was utilized. FINDINGS: Abdomen: No pleural or pericardial effusion and lung bases. Dependent changes and atelectasis in both lungs. Severe distention of the stomach. There is fluid-filled dilated small bowel loops with relatively decompressed distal small bowel loops could represent evolving ileus or obstruction. There is no evidence of free intraperitoneal gas. The liver, adrenal glands, pancreas and spleen appear grossly unremarkable. There is a calcified subcapsular left renal lesion stable likely representing sequela of prior subcapsular hematoma. No renal collecting system dilatation. No enlarged mesenteric or retroperitoneal lymph nodes. Pelvis: No free pelvic fluid. No enlarged pelvic lymph nodes. Urinary bladder is grossly unremarkable. Degenerative change of the thoracolumbar spine. No vertebral body height loss. IMPRESSION: 1. Fluid-filled mildly dilated proximal small bowel loops and distention of the stomach represent evolving small bowel obstruction or ileus. Consider Gastrografin challenge. All CT scans at this facility use dose modulation, iterative reconstruction, and/or weight based dosing when appropriate to reduce radiation dose to as low as reasonably achievable. Finalized by Irwin Rivera MD on 10/14/2024 2:19 PM SongAfterRadiology Study observation (narrative)SongAfterCT Abdomen and Pelvis W contrast IVOrdered By: Irwin Rivera on 10-14-2024 SongAfter Work Phone: Comprehensive metabolic panelon [id number] [Mass/Vol]4.4 g/dL3.2 - 5.3 g/dLProUniversity [facility]als [facility] SystemALP [Catalytic activity/Vol]156 U/LHigh39 - 130 U/[facility] SystemALT No additional P-5'-P [Catalytic activity/Vol]28 U/LNINF - 40 U/[facility] SystemAnion gap [Moles/Vol]9 mmol/L5 - 15 mmol/LPrCentennial Peaks Hospital Health SystemAST [Catalytic activity/Vol]22 U/LNINF - 41 U/[facility] SystemBilirubin [Mass/Vol]0.6 mg/dL0.3 - 1.2 mg/dLGreene Memorial HospitalCalcium [Mass/Vol]9.4 mg/dL8.5 - 10.5 mg/dLGreene Memorial HospitalChloride [Moles/Vol]107 mmol/L98 - 109 mmol/L [facility] HospitalCO2 [Moles/Vol]21 mmol/LLow22 - 32 mmol/[facility] CenterCreatinine [Mass/Vol]1.17 mg/dL0.70 - 1.20 mg/dLGreene Memorial Hospital Comment on above:METHOD TRACEABLE TO [facility] STANDARDEGFR Non-Race Gctqhf[address] [place], [place] [address]Comment on above:eGFR not reported due to non-numeric value for Creatinine. Reported eGFR is based on the CKD-EPI 2020 equation that does not use a race coefficient. Glucose [Mass/Vol]122 mg/zIGhqy06 - 99 mg/dLGreene Memorial Hospital Interpretation and review of laboratory resultsAbnormalGreene Memorial Hospital Potassium [Moles/Vol]3.6 mmol/L3.5 - 5.0 mmol/[facility] SystemProtein [Mass/Vol]8.8 g/dLHigh6.0 - 8.0 g/dLFormerly [facility], 1928–1983odium [Moles/Vol]137 mmol/L134 - 146 mmol/[facility] SystemUrea nitrogen [Mass/Vol]32 mg/dL High5 - 27 mg/dLMile Bluff Medical Center SystemLIPASEon [id number] [Catalytic activity/Vol]58 U/AEdrv04-32EafVrbtsbHocking Valley Community HospitalComment on above:Performed By: #### LIPA #### [facility] ([address] [place] [address] VIRLipaseon 13-63-8591Sxwcccyziyfeqt and review of laboratory resultsAbnoUNC Health ChathamLipase [Catalytic activity/Vol]58 U/LHigh 17 - 40 U/LProMedica McLeod [facility] SystemMAGNESIUMon 10-14-2024 Magnesium [Mass/Vol]1.8 mg/dLNormal1.8-2.6[facility] HospitalComsouthwest regional rehabilitation center on above:Performed By: #### MG #### [facility] ([address] [address] VIRMagnesiumon 84-66-5675Ngyooitqbeulmh and review of laboratory resultsNormalBrown Memorial Hospital SystemMagnesium [Mass/Vol]1.8 mg/dL1.8 - 2.6 mg/dLMile Bluff Medical Center SystemNo Panel Informationon [id number] and review of laboratory resultsNoThedaCare Regional Medical Center–Neenah SystemPROTIME AND INRon 89-53-6770DUB1.9Epbtmc5.9-1.2 [facility] HospitalComsouthwest regional rehabilitation center on above:Performed By: #### PINR #### [facility] ([address] [address] VIRPT Coag (PPP) [Time]13.2 sNormal9.8-13.2PZanesville City HospitalComsouthwest regional rehabilitation center on above:Performed By: #### PINR #### [facility] ([address] [address] VIRProtime & INRon [id number] Coag (Platelet poor plasma or blood) [Relative time]1.20.9 - 1.2PClinton Memorial HospitalPT Coag (PPP) [Time] 13.2 [facility] BeachwoodXR ABDOMEN AP 1 VWon [id number] ABDOMEN AP 1 VWXR ABDOMEN AP 1 VW History: NG placement EXAM: Abdomen supine COMPARISON: CT abdomen pelvis IMPRESSION: NG tube tip in gastric fundus, in satisfactory position. Finalized by Lizz Montalvo MD on 10/14/2024 6:36 PMNormalHocking Valley Community HospitalXR Abdomen APon [id number]: NG placement EXAM: Abdomen supine COMPARISON: CT abdomen pelvis IMPRESSION: NG tube tip in gastric fundus, in satisfactory position. Finalized by Lizz Montalvo MD on 10/14/2024 6:36 PMSECTRACity Emergency Hospital, Lizz Hearn MD - 10/14/2024 History: NG placement EXAM: Abdomen supine COMPARISON: CT abdomen pelvis IMPRESSION: NG tube tip in gastric fundus, in satisfactory position. Finalized by Lizz Montalvo MD on 10/14/2024 6:36 PM [facility] HospitalRadiology Study observation (narrative)[facility] HospitalXR Abdomen APOrdered By: Lizz Montalvo on 05-93-0800ZxqOarrxvGreene Memorial Hospital Work Phone: cbc WITH AUTO DIFFERENTIALon [id number] ABSOLUTE COUNT (10*3/UL) BY AUTOMATED COUNT0.0 10*3/uLNormal0.0-0.2PThe Surgical Hospital at SouthwoodsComment on above:Performed By: #### CBCA #### [facility] ([facility]) [address] [place] [address] VIRBASOPHILS RELATIVE PERCENT BY AUTOMATED COUNT0.4 %Normal [facility] HospitalComment on above:Performed By: #### CBCA #### [facility] ([facility]) [address] [place] [address] VIRCELLAVISION DIFFERENTIAL TYPEAUTOMATED DIFFERENTIALNormal [facility] HospitalComment on above:Performed By: #### CBCA #### [facility] ([facility]) [address] [place] [address] VIREosinophils (Bld) [#/Vol]0.5 10*3/uLHigh0.0-0.4ProMedica Baypark HospitalComment on above:Performed By: #### CBCA #### [facility] ([facility]) [address] [place] [address] VIREOSINOPHILS RELATIVE PERCENT BY AUTOMATED COUNT6.1 %Normal [facility] HospitalComment on above:Performed By: #### CBCA #### [facility] ([facility]) [address] [place] [address] VIRErythrocyte distribution width (RBC) [Ratio]13.2 %Normal 11.5-15ProWhite Hospital HospitalComment on above:Performed By: #### CBCA #### [facility] ([facility]) [address] [place] [address] VIRHematocrit (Bld) [Volume fraction]39.7 %Kwotpo66-33EyvJcikwz Baypark HospitalComment on above:Performed By: #### CBCA #### [facility] ([facility]) [address] [place] [address] VIRHemoglobin (Bld) [Mass/Vol]13.3 g/lUCjiuek18-36VbpOyskuk [facility] HospitalComment on above:Performed By: #### CBCA #### [facility] ([facility]) [address] [place] [address] VIRLYMPHOCYTES ABSOLUTE COUNT (10*3/UL) BY AUTOMATED COUNT2.0 10*3/uLNormal1.0-3.5[facility] HospitalComment on above:Performed By: #### CBCA #### [facility] ([facility]) [address] [place] [address] VIRLYMPHOCYTES RELATIVE PERCENT BY AUTOMATED COUNT24.3 %Normal [facility] HospitalComment on above:Performed By: #### CBCA #### [facility] ([facility]) [address] [place] [address] VIRMCH (RBC) [Entitic mass]32.1 ogGyfxkp39-95UyyTvktgv [facility] HospitalComment on above:Performed By: #### CBCA #### [facility] ([facility]) [address] [place] [address] VIRMCHC (RBC) [Mass/Vol]33.5 g/cPRmrwev94-45MerSmepsg [facility] HospitalComment on above:Performed By: #### CBCA #### [facility] ([facility]) [address] [place] [address] VIRMCV (RBC) [Entitic vol]96 zPTmizib08-127OjoLsksnn [facility] HospitalComment on above:Performed By: #### CBCA #### [facility] ([facility]) [address] [place] [address] VIRMONOCYTES ABSOLUTE COUNT (10*3/UL) BY AUTOMATED COUNT0.7 10*3/uLNormal0.0-0.9ProWhite Hospital HospitalComment on above:Performed By: #### CBCA #### [facility]) [address] [place] [address] VIRMONOCYTES RELATIVE PERCENT BY AUTOMATED COUNT8.6 %Normal [facility] HospitalComment on above:Performed By: #### CBCA #### [facility]) [address] [place] [address] VIRNEUTROPHILS ABSOLUTE COUNT BY AUTOMATED COUNT5.0 10*3/uL Normal1.5-6.6ProWhite Hospital HospitalComment on above:Performed By: #### CBCA #### [facility]) [address] [place] [address] VIRNEUTROPHILS RELATIVE PERCENT BY AUTOMATED COUNT60.6 %Normal [facility] HospitalComment on above:Performed By: #### CBCA #### [facility] ([facility]) [address] [place] [address] VIRPlatelet mean volume (Bld) [Entitic vol]7.7 fLNormal7-12 ProMAultman Alliance Community Hospital HospitalComment on above:Performed By: #### CBCA #### [facility] ([facility]) [address] [place] [address] VIRPlatelets (Bld) [#/Vol]210 10*3/lGVlvuwv978-031VqxIjygke [facility] HospitalComment on above:Performed By: #### CBCA #### [facility] ([facility]) [address] [place] [address] VIRRBC COUNT4.14 X10E12/LNormal4.1-5.7Pro[facility] HospitalComment on above:Performed By: #### CBCA #### [facility] ([facility]) [address] [place] [address] VIRWBC (Bld) [#/Vol]8.3 10*3/uLNormal4-11[facility] HospitalComment on above:Performed By: #### CBCA #### [facility] ([facility]) [address] [place] [address] VIRCOMPREHENSIVE METABOLIC PANELon 75-37-7955Ojvyywk [Mass/Vol] 3.5 g/dLNormal3.2-5.3ProMedSelect Medical Specialty Hospital - Cincinnati HospitalComment on above:Performed By: #### CBCA #### [facility] ([facility]) [address] [place] [address] VIRALP [Catalytic activity/Vol]117 U/VVcvcuh95-286IcmRjlpdj [facility] HospitalComment on above:Performed By: #### CBCA #### [facility] ([facility]) [address] [place] [address] VIRALT [Catalytic activity/Vol]22 U/LNormal<=40ProWayne Healthcare Main Campusca [facility] HospitalComment on above:Performed By: #### CBCA #### [facility] ([facility]) [address] [place] [address] VIRAnion gap [Moles/Vol]6 mmol/LNormal5-15Pro[facility] Hospital HospitalComment on above:Performed By: #### CBCA #### [facility] ([facility]) [address] [place] [address] VIRAST [Catalytic activity/Vol]26 U/LNormal<=41Pro[facility] HospitalComment on above:Performed By: #### CBCA #### [facility] ([facility]) [address] [place] [address] VIRBilirubin [Mass/Vol]0.6 mg/dLNormal0.3-1.2ProMedSelect Medical Specialty Hospital - Cincinnati HospitalComment on above:Performed By: #### CBCA #### [facility] ([facility]) [address] [place] [address] VIRCalcium [Mass/Vol]9.0 mg/dLNormal8.5-10.5PThe Surgical Hospital at SouthwoodsComment on above:Performed By: #### CBCA #### [facility] ([facility]) [address] [place] [address] VIRChloride [Moles/Vol]112 mmol/UJwdw69-039EnoZjumgn [facility] HospitalComment on above:Performed By: #### CBCA #### [facility] ([facility]) [address] [place] [address] VIRCO2 [Moles/Vol]25 mmol/ILktwtu82-92CtkKtewig [facility] HospitalComment on above:Performed By: #### CBCA #### [facility]) [address] [place] [address] VIRCreatinine [Mass/Vol]0.92 mg/dLNormal0.70-1.20ProSt. Anthony'S HospitalComment on above:Result Comment: METHOD TRACEABLE TO IDMS STANDARDPerformed By: #### CBCA #### [facility]) [address] [place] [address] VIREGFR (CKD-EPI) NON-RACE DEPENDENT>^90Normal>=60ProSt. Anthony'S HospitalComment on above:Result Comment: eGFR not reported due to non- numeric value for Creatinine. Reported eGFR is based on the CKD-EPI 2021 equation that does not use a race coefficient.Performed By: #### CBCA #### [facility] ([facility]) [address] [place] [address] VIRGlucose [Mass/Vol]95 mg/aLOjyaiq93-67QajNdmpqtSt. Anthony'S HospitalComment on above:Performed By: #### CBCA #### [facility] ([facility]) [address] [place] [address] VIRPotassium [Moles/Vol]4.3 mmol/LNormal3.5-5.0[facility] HospitalComment on above:Performed By: #### CBCA #### [facility] ([facility]) [address] [place] [address] VIRProtein [Mass/Vol]7.3 g/dLNormal6.0-8.0[facility] HospitalComment on above:Performed By: #### CBCA #### [facility] ([facility]) [address] [place] [address] VIRSodium [Moles/Vol]143 mmol/KFzmayc976-830PluWvuqya [facility] HospitalComment on above:Performed By: #### CBCA #### [facility] ([facility]) [address] [place] [address] VIRUrea nitrogen [Mass/Vol]26 mg/dLNormal5-27[facility] HospitalComment on above:Performed By: #### CBCA #### [facility] ([facility]) [address] [place] [address] VIRMAGNESIUMon 30-44-3749Mzadmzjwb [Mass/Vol]1.8 mg/dLNormal 1.8-2.6[facility] HospitalComment on above:Performed By: #### CBCA #### [facility] ([facility]) [address] [place] [address] VIRBEDSIDE GLUCOSEon 02-57-3021Ppwitzs [Mass/Vol]86 mg/dLNormal 65-99[facility] HospitalComment on above:Performed By: #### CBCA #### [facility] ([facility]) [address] [place] [address] VIRGlucose [Mass/Vol]95 mg/pXOmhocb49-86IwdBpvxfy [facility] HospitalComment on above:Performed By: #### BEDG #### [facility] ([facility]) [address] [place] [address] VIRGlucose [Mass/Vol]78 mg/kMRmlarm03-22QtmUygqjd [facility] HospitalComment on above:Performed By: #### BEDG #### [facility] ([facility]) [address] [place] [address] VIRCBC WITH AUTO DIFFERENTIALon 12-93-1300LJUIZDPQI ABSOLUTE COUNT (10*3/UL) BY AUTOMATED COUNT0.1 10*3/uLNormal0.0-0.2ProMedKettering Health Behavioral Medical CenterComment on above:Performed By: #### CBCA #### [facility] ([facility]) [address] [place] [address] VIRBASOPHILS RELATIVE PERCENT BY AUTOMATED COUNT0.5 %Normal [facility] HospitalComment on above:Performed By: #### CBCA #### [facility]) [address] [place] [address] VIRCELLAVISION DIFFERENTIAL TYPEAUTOMATED DIFFERENTIALNormal [facility] HospitalComment on above:Performed By: #### CBCA #### [facility] [address] [place] [address] VIREosinophils (Bld) [#/Vol]0.3 10*3/uLNormal0.0-0.4[facility] HospitalComment on above:Performed By: #### CBCA #### [facility]) [address] [place] [address] VIREOSINOPHILS RELATIVE PERCENT BY AUTOMATED COUNT3.6 %Normal [facility] HospitalComment on above:Performed By: #### CBCA #### [facility]) [address] [place] [address] VIRErythrocyte distribution width (RBC) [Ratio]13.2 %Normal 11.5-15ProSt. Anthony'S HospitalComment on above:Performed By: #### CBCA #### [facility]) [address] [place] [address] VIRHematocrit (Bld) [Volume fraction]37.5 %Vmt04-55QvhRpwwhb [facility] HospitalComment on above:Performed By: #### CBCA #### [facility]) [address] [place] [address] VIRHemoglobin (Bld) [Mass/Vol]12.8 g/fRLgt92-78UfxLkkvnv [facility] HospitalComment on above:Performed By: #### CBCA #### [facility]) [address] [place] [address] VIRLYMPHOCYTES ABSOLUTE COUNT (10*3/UL) BY AUTOMATED COUNT1.6 10*3/uLNormal1.0-3.5PThe Surgical Hospital at SouthwoodsComment on above:Performed By: #### CBCA #### [facility] ([facility]) [address] [place] [address] VIRLYMPHOCYTES RELATIVE PERCENT BY AUTOMATED COUNT16.8 %Normal ProMAultman [facility] Hospital HospitalComment on above:Performed By: #### CBCA #### [facility] ([facility]) [address] [place] [address] [facility] ([facility]) [Entitic mass]32.6 xzLhfrbp78-10WvkScnacz [facility] HospitalComment on above:Performed By: #### CBCA #### [facility] ([facility]) [address] [place] [address] [facility] (RBC) [Mass/Vol]34.0 g/gYReqqma41-00QkfOhpmrn [facility] HospitalComment on above:Performed By: #### CBCA #### [facility] ([facility]) [address] [place] [address] VIRMCV (RBC) [Entitic vol]96 hIXbkeub61-521NnpUilypo [facility] HospitalComment on above:Performed By: #### CBCA #### [facility] ([facility]) [address] [place] [address] VIRMONOCYTES ABSOLUTE COUNT (10*3/UL) BY AUTOMATED COUNT0.9 10*3/uLNormal0.0-0.9[facility] HospitalComment on above:Performed By: #### CBCA #### [facility] ([facility]) [address] [place] [address] VIRMONOCYTES RELATIVE PERCENT BY AUTOMATED COUNT9.2 %Normal [facility] HospitalComment on above:Performed By: #### CBCA #### [facility] ([facility]) [address] [place] [address] VIRNEUTROPHILS ABSOLUTE COUNT BY AUTOMATED COUNT6.7 10*3/uLHigh 1.5-6.6[facility] HospitalComment on above:Performed By: #### CBCA #### [facility] ([facility]) [address] [place] [address] VIRNEUTROPHILS RELATIVE PERCENT BY AUTOMATED COUNT69.9 %Normal [facility] HospitalComment on above:Performed By: #### CBCA #### [facility] ([facility]) [address] [place] [address] VIRPlatelet mean volume (Bld) [Entitic vol]6.9 fLLow7-12 [facility] HospitalComment on above:Performed By: #### CBCA #### [facility] ([facility]) [address] [place] [address] VIRPlatelets (Bld) [#/Vol]238 10*3/kGFmxusm372-803CuhNwuwnz [facility] HospitalComment on above:Performed By: #### CBCA #### [facility] ([facility]) [address] [place] [address] VIRRBC COUNT3.92 X10E12/LLow4.1-5.7ProSt. Anthony'S Hospital Comment on above:Performed By: #### CBCA #### [facility] ([facility]) [address] [place] [address] VIRWBC (Bld) [#/Vol]9.6 10*3/uLNormal4-11ProSt. Anthony'S HospitalComment on above:Performed By: #### CBCA #### [facility] ([facility]) [address] [place] [address] VIRCOMPREHENSIVE METABOLIC PANELon 26-65-9762Hrwqrya [Mass/Vol] 3.8 g/dLNormal3.2-5.3Pro[facility] Medical CenterComment on above:Performed By: #### BEDG #### [facility] ([facility]) [address] [place] [address] VIRALP [Catalytic activity/Vol]115 U/ZSrbuqs28-215YkgFqkqbqSt. Anthony'S HospitalComment on above:Performed By: #### BEDG #### [facility] ([facility]) [address] [place] [address] VIRALT [Catalytic activity/Vol]17 U/LNormal<=40[facility] HospitalComment on above:Performed By: #### BEDG #### [facility] ([facility]) [address] [place] [address] VIRAnion gap [Moles/Vol]10 mmol/LNormal5-15ProMediFulton [facility] Center HospitalComment on above:Performed By: #### BEDG #### [facility] [address] [place] [address] VIRAST [Catalytic activity/Vol]22 U/LNormal<=41[facility] HospitalComment on above:Performed By: #### BEDG #### [facility] [address] [place] [address] VIRBilirubin [Mass/Vol]0.7 mg/dLNormal0.3-1.2[facility] HospitalComment on above:Performed By: #### BEDG #### [facility] [address] [place] [address] VIRCalcium [Mass/Vol]8.8 mg/dLNormal8.5-10.5ProMedSelect [facility] HospitalComment on above:Performed By: #### BEDG #### [facility] [address] [place] [address] VIRChloride [Moles/Vol]106 mmol/LPbykjp71-607MwgEdvedk [facility] HospitalComment on above:Performed By: #### BEDG #### [facility] [address] [place] [address] VIRCO2 [Moles/Vol]27 mmol/QVdhsuk10-40HkuDdomwe [facility] HospitalComment on above:Performed By: #### BEDG #### [facility] [address] [place] [address] VIRCreatinine [Mass/Vol]0.88 mg/dLNormal0.70-1.20[facility] HospitalComment on above:Result Comment: METHOD TRACEABLE TO IDMS STANDARDPerformed By: #### BEDG #### [facility]) [address] [place] [address] VIREGFR (CKD-EPI) NON-RACE DEPENDENT>^90Normal>=60[facility] HospitalComment on above:Result Comment: eGFR not reported due to non- numeric value for Creatinine. Reported eGFR is based on the CKD-EPI 2020 equation that does not use a race coefficient.Performed By: #### BEDG #### [facility]) [address] [place] [address] VIRGlucose [Mass/Vol]99 mg/pUNjnjop96-14NvsSvtsbm [facility] HospitalComment on above:Performed By: #### BEDG #### [facility] [address] [place] [address] VIRPotassium [Moles/Vol]3.7 mmol/LNormal3.5-5.0[facility] HospitalComment on above:Performed By: #### BEDG #### [address] [place] [address] VIRProtein [Mass/Vol]7.4 g/dLNormal6.0-8.0[facility] HospitalComment on above:Performed By: #### BEDG #### [address] [place] [address] VIRSodium [Moles/Vol]143 mmol/XVdiuxp146-147WyzRvztfn [facility] HospitalComment on above:Performed By: #### BEDG #### [facility] [address] [place] [address] VIRUrea nitrogen [Mass/Vol]26 mg/dLNormal5-27[facility] HospitalComment on above:Performed By: #### BEDG #### [facility] [address] [place] [address] [place] [address] VIRGI PANEL STOOL PATHOGEN PANELon 95-77-1838ALNVMDLAQAVzx detectedNormalNot DetectedProWhite Hospital HospitalComment on above:Performed By: #### CBCA #### [facility]) [address] [place] [address] [place] [address] VIRAGGREGATIVE E COLINot detectedNormalNot DetectedProWhite Hospital HospitalComment on above:Performed By: #### CBCA #### [facility] ([facility]) [address] [place] [address] VIRASTROVIRUSNot detectedNormalNot DetectedProMedica [facility] HospitalComment on above:Performed By: #### CBCA #### [facility] ([facility]) [address] [place] [address] VIRCAMPYLOBACTERNot detectedNormalNot DetectedProMedica [facility] HospitalComment on above:Performed By: #### CBCA #### [facility]) [address] [place] [address] VIRCRYPTOSPORIDIUMNot detectedNormalNot DetectedProMedica [facility] HospitalComment on above:Performed By: #### CBCA #### [facility]) [address] [place] [address] VIRCYCLOSPORANot detectedNormalNot DetectedProMedica [facility] HospitalComment on above:Performed By: #### CBCA #### [facility]) [address] [place] [address] VIRE HISTOLYTICANot detectedNormalNot DetectedProMedica [facility] HospitalComment on above:Performed By: #### CBCA #### [facility]) [address] [place] [address] [place] [address] VIRGIARDIA LAMBLIANot detectedNormalNot DetectedProMedica [facility] HospitalComment on above:Performed By: #### CBCA #### [facility]) [address] [place] [address] VIRNOROVIRUSNot detectedNormalNot DetectedProMedica [facility] HospitalComment on above:Performed By: #### CBCA #### [facility] ([facility]) [address] [place] [address] VIRPATHOGENIC E COLINot detectedNormalNot DetectedProMedica [facility] HospitalComment on above:Performed By: #### CBCA #### [facility] ([facility]) [address] [place] [address] VIRPLESIOMONASNot detectedNormalNot DetectedProMedica [facility] HospitalComment on above:Performed By: #### CBCA #### [facility] ([facility]) [address] [place] [address] VIRROTAVIRUS ANot detectedNormalNot DetectedProMedica [facility] HospitalComment on above:Performed By: #### CBCA #### [facility] ([facility]) [address] [place] [address] VIRSALMONELLANot detectedNormalNot DetectedProMedica [facility] HospitalComment on above:Performed By: #### CBCA #### [facility] ([facility]) [address] [place] [address] VIRSAPOVIRUSNot detectedNormalNot DetectedProMedica [facility] HospitalComment on above:Performed By: #### CBCA #### [facility]) [address] [place] [address] VIRSHIGA TOXIN E COLINot detectedNormalNot DetectedProMedica [facility] HospitalComment on above:Performed By: #### CBCA #### [facility]) [address] [place] [address] VIRSHIGELLA-E COLINot detectedNormalNot DetectedProMedica [facility] HospitalComment on above:Performed By: #### CBCA #### [facility]) [address] [place] [address] VIRTOXIGENIC E COLINot detectedNormalNot DetectedProMedica [facility] HospitalComment on above:Performed By: #### CBCA #### [facility]) [address] [place] [address] VIRVIBRIONot detectedNormalNot DetectedProMedica [facility] HospitalComment on above:Performed By: #### CBCA #### [facility] ([facility]) [address] [place] [address] VIRVIBRIO CHOLERAENot detectedNormalNot DetectedProMedica [facility] HospitalComment on above:Performed By: #### CBCA #### [facility]) [address] [place] [address] ABDELRAHMAN. ENTEROCOLITICANot detectedNormalNot DetectedProMedica [facility] HospitalComment on above:Performed By: #### CBCA #### [facility] ([facility]) [address] [place] [address] VIRMAGNESIUMon 74-85-6890Nydjbntop [Mass/Vol]2.0 mg/dLNormal 1.8-2.6ProWay[facility] Campusca [facility] HospitalComment on above:Performed By: #### MG #### [facility]) [address] [place] [address] VIRPOTASSIUMon 85-78-2329Cfsmbltgz [Moles/Vol]4.0 mmol/LNormal 3.5-5.0[facility] HospitalComment on above:Performed By: #### K #### [facility]) [address] [place] [address] VIRBEDSIDE GLUCOSEon 84-40-5301Rqytfwn [Mass/Vol]88 mg/dLNormal 65-99[facility] HospitalComment on above:Performed By: #### BEDG #### [facility]) [address] [place] [address] VIRGlucose [Mass/Vol]87 mg/xUSuqknx87-51BgqDuddug [facility] HospitalComment on above:Performed By: #### BEDG #### [facility]) [address] [place] [address] VIRGlucose [Mass/Vol]84 mg/eUBkkbuz49-26RybZmdqez [facility] HospitalComment on above:Performed By: #### BEDG #### [facility]) [address] [place] [address] VIRGlucose [Mass/Vol]87 mg/cMEygijh03-79KbdMvuyhc [facility] HospitalComment on above:Performed By: #### CBCA #### [facility] ([facility]) [address] [place] [address] VIRGlucose [Mass/Vol]97 mg/xWMptaox79-23MwtDznxwe [facility] HospitalComment on above:Performed By: #### BEDG #### [facility]) [address] [place] [address] VIRCBC WITH AUTO DIFFERENTIALon 81-97-2913EWBUBAQBQ ABSOLUTE COUNT (10*3/UL) BY AUTOMATED COUNT0.0 10*3/uLNormal0.0-0.2PThe Surgical Hospital at SouthwoodsComment on above:Performed By: #### BEDG #### [facility] ([facility]) [address] [place] [address] VIRBASOPHILS RELATIVE PERCENT BY AUTOMATED COUNT0.3 %Normal [facility] HospitalComment on above:Performed By: #### BEDG #### [facility] ([facility]) [address] [place] [address] VIRCELLAVISION DIFFERENTIAL TYPEAUTOMATED DIFFERENTIALNormal [facility] HospitalComment on above:Performed By: #### BEDG #### [facility] ([facility]) [address] [place] [address] VIREosinophils (Bld) [#/Vol]0.3 10*3/uLNormal0.0-0.4[facility] HospitalComment on above:Performed By: #### BEDG #### [facility] ([facility]) [address] [place] [address] VIREOSINOPHILS RELATIVE PERCENT BY AUTOMATED COUNT2.3 %Normal [facility] HospitalComment on above:Performed By: #### BEDG #### [facility]) [address] [place] [address] VIRErythrocyte distribution width (RBC) [Ratio]13.3 %Normal 11.5-15ProSt. Anthony'S HospitalComment on above:Performed By: #### BEDG #### [facility] ([facility]) [address] [place] [address] VIRHematocrit (Bld) [Volume fraction]39.5 %Eprmpr55-87RmtKsgsvfSt. Anthony'S HospitalComment on above:Performed By: #### BEDG #### [facility] ([facility]) [address] [place] [address] VIRHemoglobin (Bld) [Mass/Vol]13.2 g/uXDngcqf46-38GxkCjesowSt. Anthony'S HospitalComment on above:Performed By: #### BEDG #### [facility]) [address] [place] [address] VIRLYMPHOCYTES ABSOLUTE COUNT (10*3/UL) BY AUTOMATED COUNT1.7 10*3/uLNormal1.0-3.5ProMedKettering Health Behavioral Medical CenterComment on above:Performed By: #### BEDG #### [facility] ([facility]) [address] [place] [address] VIRLYMPHOCYTES RELATIVE PERCENT BY AUTOMATED COUNT14.6 %Normal [facility] HospitalComment on above:Performed By: #### BEDG #### [facility] ([facility]) [address] [place] [address] VIRMCH (RBC) [Entitic mass]31.6 nmDzppjp01-72ZriRpaumdSt. Anthony'S HospitalComment on above:Performed By: #### BEDG #### [facility] ([facility]) [address] [place] [address] VIRMCHC (RBC) [Mass/Vol]33.4 g/yJCgxcia64-18WxcTafsyz [facility] HospitalComment on above:Performed By: #### BEDG #### [facility] ([facility]) [address] [place] [address] VIRMCV (RBC) [Entitic vol]95 dUSjbuco36-166OcdFfoysu [facility] HospitalComment on above:Performed By: #### BEDG #### [facility] ([facility]) [address] [place] [address] VIRMONOCYTES ABSOLUTE COUNT (10*3/UL) BY AUTOMATED COUNT0.8 10*3/uLNormal0.0-0.9[facility] HospitalComment on above:Performed By: #### BEDG #### [facility] ([facility]) [address] [place] [address] VIRMONOCYTES RELATIVE PERCENT BY AUTOMATED COUNT7.3 %Normal [facility] HospitalComment on above:Performed By: #### BEDG #### [facility] ([facility]) [address] [place] [address] VIRNEUTROPHILS ABSOLUTE COUNT BY AUTOMATED COUNT8.6 10*3/uLHigh 1.5-6.6[facility] HospitalComment on above:Performed By: #### BEDG #### [facility] ([facility]) [address] [place] [address] VIRNEUTROPHILS RELATIVE PERCENT BY AUTOMATED COUNT75.5 %Normal [facility] HospitalComment on above:Performed By: #### BEDG #### [facility] ([facility]) [address] [place] [address] VIRPlatelet mean volume (Bld) [Entitic vol]7.0 fLNormal7-12 [facility] HospitalComment on above:Performed By: #### BEDG #### [facility] ([facility]) [address] [place] [address] VIRPlatelets (Bld) [#/Vol]248 10*3/kRWkwcyr465-743ItlJbbelc [facility] HospitalComment on above:Performed By: #### BEDG #### [facility]) [address] [place] [address] VIRRBC COUNT4.17 X10E12/LNormal4.1-5.7[facility] HospitalComment on above:Performed By: #### BEDG #### [facility]) [address] [place] [address] VIRWBC (Bld) [#/Vol]11.3 10*3/uLHigh4-11[facility] HospitalComment on above:Performed By: #### BEDG #### [facility] ([facility]) [address] [place] [address] VIRCOMPREHENSIVE METABOLIC PANELon 11-27-1416Lzvpinq [Mass/Vol] 3.9 g/dLNormal3.2-5.3[facility] HospitalComment on above:Performed By: #### CBCA #### [facility] ([facility]) [address] [place] [address] VIRALP [Catalytic activity/Vol]132 U/CCcia76-300[facility] HospitalComment on above:Performed By: #### CBCA #### [facility] ([facility]) [address] [place] [address] VIRALT [Catalytic activity/Vol]18 U/LNormal<=40[facility] HospitalComment on above:Performed By: #### CBCA #### [facility] ([facility]) [address] [place] [address] VIRAnion gap [Moles/Vol]12 mmol/LNormal5-15[facility] HospitalComment on above:Performed By: #### CBCA #### [facility] ([facility]) [address] [place] [address] VIRAST [Catalytic activity/Vol]21 U/LNormal<=41[facility] HospitalComment on above:Performed By: #### CBCA #### [facility]) [address] [place] [address] VIRBilirubin [Mass/Vol]0.9 mg/dLNormal0.3-1.2[facility] HospitalComment on above:Performed By: #### CBCA #### [facility]) [address] [place] [address] VIRCalcium [Mass/Vol]8.9 mg/dLNormal8.5-10.5ProMedSelect [facility] Special[facility] HospitalComment on above:Performed By: #### CBCA #### [facility]) [address] [place] [address] VIRChloride [Moles/Vol]105 mmol/PJpvknu81-808XzaClqhob [facility] HospitalComment on above:Performed By: #### CBCA #### [facility] ([facility]) [address] [place] [address] VIRCO2 [Moles/Vol]25 mmol/KGbzuxh07-86UbqCqblpz [facility] HospitalComment on above:Performed By: #### CBCA #### [facility]) [address] [place] [address] VIRCreatinine [Mass/Vol]0.96 mg/dLNormal0.70-1.20ProMediFulton County [facility] Center HospitalComment on above:Result Comment: METHOD TRACEABLE TO IDMS STANDARDPerformed By: #### CBCA #### [facility] [address] [place] [address] VIRGFR/1.73 sq M.predicted among non-blacks MDRD (S/P/Bld) [Vol rate/Area]86 mL/min/{1.73_m2}Normal>=60ProSt. Anthony'S HospitalComment on above:Result Comment: eGFR not reported due to non-numeric value for Creatinine. Reported eGFR is based on the CKD-EPI 2020 equation that does not use a race coefficient.Performed By: #### CBCA #### [facility]) [address] [place] [address] VIRGlucose [Mass/Vol]88 mg/sUUtggnd85-00OzgKgkqdvSt. Anthony'S HospitalComment on above:Performed By: #### CBCA #### [facility]) [address] [place] [address] VIRPotassium [Moles/Vol]3.9 mmol/LNormal3.5-5.0ProSt. Anthony'S HospitalComment on above:Performed By: #### CBCA #### [facility] ([facility]) [address] [place] [address] VIRProtein [Mass/Vol]7.7 g/dLNormal6.0-8.0ProSt. Anthony'S HospitalComment on above:Performed By: #### CBCA #### [facility]) [address] [place] [address] VIRSodium [Moles/Vol]142 mmol/SDnryhr904-557BjpUxukwl [facility] HospitalComment on above:Performed By: #### CBCA #### [facility] ([facility]) [address] [place] [address] VIRUrea nitrogen [Mass/Vol]24 mg/dLNormal5-27ProSt. Anthony'S HospitalComment on above:Performed By: #### CBCA #### [facility]) [address] [place] [address] VIRFL SMALL BOWELon [id number] SMALL BOWELFL SMALL BOWEL FL SMALL BOWEL HISTORY: Small bowel obstruction, abdominal distention COMPARISON: Same day abdominal radiograph FINDINGS: Images: 3, same day abdominal radiograph was used as contract modeler imaging. Para Educator view shows a few gas-filled loops of distended small bowel as well as gas within the large bowel and rectum. Enteric tube visualized with side-port terminating over the expected location of thestomach. Linear calcifications overlying the left renal fossa which correspond to peripherally calcified renal cyst visualized on CT abdomen and pelvis dated 04/07/2023. Suture material visualized in the left lower quadrant. Normal progression of enteric contrast in the small bowel. No significantly dilated loops of small bowel. Enteric contrast visualized to reach the cecum by 4 hours following administration via enteric tube. IMPRESSION: * No evidence of high-grade small bowel obstruction. Contrast progresses to large bowel by the 4 hour time point. Approved by Whitney Burciaga MD on 10/11/2024 2:44 PM I, Edmar Dos Santos MD have personally reviewed the image(s) and agree with and/or edited the report Finalized by Edmar Dos Santos MD on 10/11/2024 3:47 PMNormalOhioHealth Van Wert HospitalMAGNESIUMon [id number] [Mass/Vol]2.0 mg/dLNormal1.8-2.6 [facility] Hospitaledica [facility] Sam[facility]itan Regional Medical CenterComment on above:Performed By: #### MG #### [facility] ([facility]) [address] [place] [address] VIRXR ABDOMEN AP 1 VWon [id number] ABDOMEN AP 1 VWXR ABDOMEN AP 1 VW EXAM: XR ABDOMEN AP 1 VW CLINICAL INFORMATION: f/u SBO. COMPARISON: 10/09/2024 FINDINGS: The tip of the gastric tube is in the stomach. There has been interval improvement in air-filled dilated loops of small bowel. There is no convincing evidence for obstruction on the current examination. Left lower quadrant postsurgical changes are noted. IMPRESSION: 1. Gastric tube tip in stomach. 2. Interval resolution of previously seen changes of small bowel obstruction. There is no convincing evidence for obstruction on the current examination. 3. Post surgical changes of the left lower quadrant. Finalized by Rk Borges MD on 10/11/2024 1:05 PMNormalProWhite Hospital HospitalXR CHEST 1 VWon [id number] CHEST 1 VWXR CHEST 1 VW EXAM: XR CHEST 1 VW CLINICAL INFORMATION: rhonchi on exam. COMPARISON: 04/12/2023 FINDINGS: The tip of the gastric tube is in the stomach. There are low lung volumes with associated hypoventilatory changes. There may be a trace left pleural effusion. There is no pulmonary edema. There are no definite focal consolidations. Stable cardiomediastinal silhouette. Stable left chest wall device with a lead extending into the neck. IMPRESSION: 1. Gastric tube with tip in stomach. 2. Possible trace left pleural effusion. There is no evidence of pulmonary edema. Finalized by Rk Borges MD on 10/11/2024 1:16 PMNormalOhioHealth Van Wert Hospital BEDSIDE GLUCOSEon [id number] [Mass/Vol]97 mg/tTNxytpx10-50YguXxttlsOhioHealth Van Wert HospitalComment on above:Performed By: #### CBCA #### [facility] ([facility]) [address] [facility] [place] [address] VIRCBC WITH AUTO DIFFERENTIALon [id number] ABSOLUTE COUNT (10*3/UL) BY AUTOMATED COUNT0.0 10*3/uLNormal0.0-0.2PThe Surgical Hospital at SouthwoodsComment on above:Performed By: #### CBCA #### [facility]) [address] [place] [address] VIRBASOPHILS RELATIVE PERCENT BY AUTOMATED COUNT0.4 %Normal [facility] HospitalComment on above:Performed By: #### CBCA #### [facility] ([facility]) [address] [place] [address] VIRCELLAVISION DIFFERENTIAL TYPEAUTOMATED DIFFERENTIALNormal [facility] HospitalComment on above:Performed By: #### CBCA #### [facility]) [address] [place] [address] VIREosinophils (Bld) [#/Vol]0.2 10*3/uLNormal0.0-0.4[facility] HospitalComment on above:Performed By: #### CBCA #### [facility]) [address] [place] [address] VIREOSINOPHILS RELATIVE PERCENT BY AUTOMATED COUNT1.3 %Normal [facility] HospitalComment on above:Performed By: #### CBCA #### [facility] ([facility]) [address] [place] [address] VIRErythrocyte distribution width (RBC) [Ratio]13.3 %Normal 11.5-15Pro[facility] HospitalComment on above:Performed By: #### CBCA #### [facility] ([facility]) [address] [place] [address] VIRHematocrit (Bld) [Volume fraction]40.6 %Zmvpzj13-25QclPufyzh [facility] HospitalComment on above:Performed By: #### CBCA #### [facility] ([facility]) [address] [place] [address] VIRHemoglobin (Bld) [Mass/Vol]13.7 g/iMXmisyr34-10DqxOcsgec [facility] HospitalComment on above:Performed By: #### CBCA #### [facility] ([facility]) [address] [place] [address] VIRLYMPHOCYTES ABSOLUTE COUNT (10*3/UL) BY AUTOMATED COUNT1.5 10*3/uLNormal1.0-3.5PThe Surgical Hospital at SouthwoodsComment on above:Performed By: #### CBCA #### [facility] ([facility]) [address] [place] [address] VIRLYMPHOCYTES RELATIVE PERCENT BY AUTOMATED COUNT13.5 %Normal ProMAultman Alliance Community Hospital HospitalComment on above:Performed By: #### CBCA #### [facility] ([facility]) [address] [place] [address] VIRMCH (RBC) [Entitic mass]32.1 qoMrijst56-39VmlMkdiqt [facility] HospitalComment on above:Performed By: #### CBCA #### [facility] ([facility]) [address] [place] [address] VIRMCHC (RBC) [Mass/Vol]33.7 g/gHOytbfz56-93HhgAsrbjs [facility] HospitalComment on above:Performed By: #### CBCA #### [facility] ([facility]) [address] [place] [address] VIRMCV (RBC) [Entitic vol]95 xNIlzjuv27-255UdyHrjtne [facility] HospitalComment on above:Performed By: #### CBCA #### [facility] ([facility]) [address] [place] [address] VIRMONOCYTES ABSOLUTE COUNT (10*3/UL) BY AUTOMATED COUNT0.9 10*3/uLNormal0.0-0.9ProSt. Anthony'S HospitalComment on above:Performed By: #### CBCA #### [facility] ([facility]) [address] [place] [address] VIRMONOCYTES RELATIVE PERCENT BY AUTOMATED COUNT7.9 %Normal [facility] HospitalComment on above:Performed By: #### CBCA #### [facility]) [address] [place] [address] VIRNEUTROPHILS ABSOLUTE COUNT BY AUTOMATED COUNT8.7 10*3/uLHigh 1.5-6.6ProSt. Anthony'S HospitalComment on above:Performed By: #### CBCA #### [facility] ([facility]) [address] [place] [address] VIRNEUTROPHILS RELATIVE PERCENT BY AUTOMATED COUNT76.9 %Normal [facility] HospitalComment on above:Performed By: #### CBCA #### [facility] ([facility]) [address] [place] [address] VIRPlatelet mean volume (Bld) [Entitic vol]7.2 fLNormal7-12 [facility] HospitalComment on above:Performed By: #### CBCA #### [facility] ([facility]) [address] [place] [address] VIRPlatelets (Bld) [#/Vol]266 10*3/mNPovzas958-018XhbTcagjb [facility] HospitalComment on above:Performed By: #### CBCA #### [facility] ([facility]) [address] [place] [address] VIRRBC COUNT4.26 X10E12/LNormal4.1-5.7[facility] HospitalComment on above:Performed By: #### CBCA #### [facility] ([facility]) [address] [place] [address] VIRWBC (Bld) [#/Vol]11.3 10*3/uLHigh4-11ProMediFulton County [facility] Center HospitalComment on above:Performed By: #### CBCA #### [facility]) [address] [place] [address] VIRCOMPREHENSIVE METABOLIC PANELon 62-80-1198Wtpuvld [Mass/Vol] 4.1 g/dLNormal3.2-5.3ProMedSelect [facility]ty [facility] HospitalComment on above:Performed By: #### BEDG #### [facility] ([facility]) [address] [place] [address] VIRALP [Catalytic activity/Vol]138 U/TRshc38-275FryIfmdlc [facility] HospitalComment on above:Performed By: #### BEDG #### [facility] ([facility]) [address] [place] [address] VIRALT [Catalytic activity/Vol]12 U/LNormal<=40ProWayne Healthcare Main Campusca [facility] HospitalComment on above:Performed By: #### BEDG #### [facility] ([facility]) [address] [place] [address] VIRAnion gap [Moles/Vol]8 mmol/LNormal5-15Pro[facility] HospitalComment on above:Performed By: #### BEDG #### [facility] ([facility]) [address] [place] [address] [place] [address] VIRAST [Catalytic activity/Vol]12 U/LNormal<=41ProWayne Healthcare Main Campusca [facility] HospitalComment on above:Performed By: #### BEDG #### [facility]) [address] [place] [address] VIRBilirubin [Mass/Vol]0.5 mg/dLNormal0.3-1.2ProMedSelect Medical Specialty Hospital [facility] HospitalComment on above:Performed By: #### BEDG #### [facility]) [address] [place] [address] VIRCalcium [Mass/Vol]9.1 mg/dLNormal8.5-10.5PThe Surgical Hospital at SouthwoodsComment on above:Performed By: #### BEDG #### [facility] ([facility]) [address] [place] [address] VIRChloride [Moles/Vol]107 mmol/PPehzpm42-221EjbLlxocqSt. Anthony'S HospitalComment on above:Performed By: #### BEDG #### [facility]) [address] [place] [address] VIRCO2 [Moles/Vol]27 mmol/AXywfxy31-61TvwGdpjytThe Surgical Hospital at SouthwoodsComment on above:Performed By: #### BEDG #### [facility]) [address] [place] [address] VIRCreatinine [Mass/Vol]0.94 mg/dLNormal0.60-1.30ProSt. Anthony'S HospitalComment on above:Result Comment: METHOD TRACEABLE TO IDMS STANDARDPerformed By: #### BEDG #### [facility]) [address] [place] [address] VIRGFR/1.73 sq M.predicted among non-blacks MDRD (S/P/Bld) [Vol rate/Area]88 mL/min/{1.73_m2}Normal>=60ProSt. Anthony'S HospitalComment on above:Result Comment: Reported eGFR is based on the CKD-EPI 2020 equation that does not use a race coefficient.Performed By: #### BEDG #### [facility]) [address] [place] [address] VIRGlucose [Mass/Vol]97 mg/vGLapjwn93-03AxgMlxuxySt. Anthony'S HospitalComment on above:Performed By: #### BEDG #### [facility]) [address] [place] [address] VIRPotassium [Moles/Vol]4.1 mmol/LNormal3.5-5.0ProSt. Anthony'S HospitalComment on above:Performed By: #### BEDG #### [facility]) [address] [place] [address] VIRProtein [Mass/Vol]7.4 g/dLNormal6.0-8.0ProSt. Anthony'S HospitalComment on above:Performed By: #### BEDG #### [facility] ([facility]) [address] [place] [address] VIRSodium [Moles/Vol]142 mmol/VGkhtuf918-214PozMhukdj [facility] HospitalComment on above:Performed By: #### BEDG #### [facility]) [address] [place] [address] VIRUrea nitrogen [Mass/Vol]19 mg/dLNormal5-27ProSt. Anthony'S HospitalComment on above:Performed By: #### BEDG #### [facility]) [address] [place] [address] VIRMAGNESIUMon 84-81-4492Qvbvlqano [Mass/Vol]2.2 mg/dLNormal 1.8-2.6ProSt. Anthony'S HospitalComment on above:Performed By: #### MG #### [facility]) [address] [place] [address] VIRMagnesium [Mass/Vol]1.7 mg/dLLow1.8-2.6ProSt. Anthony'S HospitalComment on above:Performed By: #### CBCA #### [facility]) [address] [place] [address] VIRStool PCR Batteryon 60-64-0236Mtajihdkpunda sp PCRNEGATIVE: No Campylobacter spp. (jejuni or coli) DNA DetectedNormalCUniversity Hospitals Samaritan Medical CenterComment on above:Performed By: #### STLPCR ####[facility] [place] [address] Lab Director: Chencho Olvera [address] [place] [address] Lab Director: David Montez MD#### OBS, CDIFQ ####[address] [place] [address] Lab Director: Sturtz, MDE coli enterotox PCRNEGATIVE: No Enterotoxigenic E. coli (ETEC) Heat-labile and heat-stable (LT/ST)NormalEECNEGKettering HealthComment on above:Result Comment: DNA DetectedPerformed By: #### STLPCR ####[address] [place] [address] Lab Director: Chencho Olvera[address] [place] [address] Lab Director: David Montez MD#### OBS, CDIFQ ####[address] [place] [address] Lab Director: David Montez MD Plesiomonas sp PCRNegativeNormalPLENEGKettering HealthComment on above: Performed By: #### STLPCR ####[address] [address] Lab Director: Chencho Olvera, [address] [place] [address] Lab Director: David Montez MD#### OBS, CDIFQ ####[address] [place] [address] Lab Director: GIN Peckalmonella sp PCRNegative NormalSALNEGKettering HealthComment on above:Performed By: #### STLPCR ####[address] [place] [address] Lab Director: Chencho Olvera, [address] [place] [address] Lab Director: David Montez MD#### OBS, CDIFQ ####[address] [place] [address] Lab Director: GIN Peckhigatoxin gene PCRNegativeNormalSTXNEGKettering HealthComment on above:Performed By: #### STLPCR ####[facility] [address] [place], [place] [phone] Director: Chencho Olvera[address] [place] [address] Lab Director: David Montez MD#### OBS, CDIFQ ####[address] [place] [address] Lab Director: David Montez MD Shigella sp PCRNegativeNormalSHINEGKettering HealthComment on above: Performed By: #### STLPCR ####[facility] [address] [place] [address] Lab Director: Chencho Olvera[address] [place] [address] Lab Director: David Montez MD#### OBS, CDIFQ ####[address] [place] [address] Lab Director: David Montez MDVibrio sp PCRNEGATIVE: No Vibrio (V. vulnificus, V, parahaemolyticus and V. cholerae) DNANormalVIBNEGKettering HealthComment on above:Result Comment: DetectedPerformed By: #### STLPCR ####[facility] [address] [place], [place] [id number])[phone] Director: Chencho Olvera[address] [place] [address] Lab Director: David Montez MD#### OBS, CDIFQ ####[address] [place] [phone] Director: David Montez MDYersinia gene PCRNegativeNormalYERNEGKettering HealthComment on above:Performed By: #### STLPCR ####[facility] [address] [place], [place] [id number])[phone] Director: Chencho Olvera, [address] [place] [address] Lab Director: David Montez MD#### OBS, CDIFQ ####[address] [place] [address] Lab Director: PATTI Peck diff Ag + Toxinon 10-09-2024 diff Ag + Toxin NegativeNormalNEGKettering HealthComment on above:Result Comment: No C. difficile antigen and Toxin Detected.Performed By: #### STLPCR ####[facility] [address] [place], [place] [phone] Director: Cehncho Olvera, [address] [place] [address] Lab Director: David Montez MD#### OBS, CDIFQ ####[address] [place] [address] Lab Director: GIN Peckpecimen Description.FECESGuernsey Memorial Hospital Comment on above:Performed By: #### STLPCR ####[facility] [place], [place] [phone])[phone] Director: Chencho Olvera [address] [place] [address] Lab Director: David Montez MD#### OBS, CDIFQ ####[address] [place] [address] Lab Director: PATTI Peck with Diffon [id number]. Basophil0.03 k/uLNormal0.00-0.20[facility] Comment on above:Performed By: #### CDP ####[address] [place] [address] Lab Director: David Montez MD Abs.Imm.Granulocyte0.04 k/uLNormal0.00-0.30Kettering HealthComment on above:Performed By: #### CDP ####[address] [place], [place] [phone] Director: Jaret Peck.Neutrophil (Seg)7.48 k/uLNormal1.50-8.10[facility] HospitalComment on above:Performed By: #### CDP ####[address] [place], [place] [address])[phone] Director: David Montez MDBasophils/100 WBC (Bld)0 %Normal 0-2MLouis Stokes Cleveland VA Medical CenterComment on above:Performed By: #### CDP ####[address] , [place] [address])[phone] Director: David Montez MDEosinophils (Bld) [#/Vol]0.26 10*3/uLNormal0.00-0.44 [facility] HealthComment on above:Performed By: #### CDP ####[address] , [facility]83[facility])[phone] Director: David Montez MDEosinophils/100 WBC (Bld)3 %Normal1-4[facility] Comment on above:Performed By: #### CDP ####[address] , [facility]83[facility])[phone] Director: David Montez MD Erythrocyte distribution width (RBC) [Ratio]12.7 %Ltzzvj35.8-14.4Kettering HealthComment on above:Performed By: #### CDP ####[address] , [facility]83[facility])[phone] Director: David Montez MDHematocrit (Bld) [Volume fraction]41.1 %Qzufnb74.7-50.3MLouis Stokes Cleveland [facility] Center Comment on above:Performed By: #### CDP ####[address] , [facility]83 Lab Director: David Montez MD Hemoglobin (Bld) [Mass/Vol]13.6 g/pNAvemle88.0-17.0[facility] HospitalComment on above:Performed By: #### CDP ####[address] , [facility]83 Lab Director: David Montez MDImmature granulocytes/100 WBC (Bld)0 %Gqhmxq4Kufui Tiffin HospitalComment on above: Performed By: #### CDP ####[address] , [facility]83 Lab Director: David Montez MDLymphocytes (Bld) [#/Vol]1.90 10*3/uLNormal1.10-3.70[facility] HospitalComment on above: Performed By: #### CDP ####[address] , [facility]83 Lab Director: David Montez MDLymphocytes/100 WBC (Bld)18 %Xwo98-28Rjshv [facility]iffin HospitalComment on above:Performed By: #### CDP ####[address] , [facility]83 Lab Director: DUKE PeckCH (RBC) [Entitic mass]32.4 pg Ibrbkn88.2-33.5[facility] HospitalComment on above:Performed By: #### CDP ####[address] , [place] [phone] Director: DUKE PeckCHC (RBC) [Mass/Vol]33.1 g/zKXnnuxi69.4-34.8 [facility] HospitalComment on above:Performed By: #### CDP ####[address] , [place] [phone])[phone] Director: DUKE PeckCV (RBC) [Entitic vol]97.9 iGCpghct12.6-102.9[facility] HospitalComment on above:Performed By: #### CDP ####[address] , [place] [phone])[phone] Director: DUKE Peckonocytes (Bld) [#/Vol]0.81 10*3/uLNormal0.10-1.20[facility] HospitalComment on above:Performed By: #### CDP ####[address] , [place] [phone])[phone] Director: David Montez MD Monocytes/100 WBC (Bld)8 %Normal3-12[facility] HospitalComment on above: Performed By: #### CDP ####[address] , [place] [id number])[phone] Director: David Montez MDNeutrophil (Seg)71 %Gcvb26-16KkckrKettering HealthComment on above:Performed By: #### CDP ####[address] , [place] [phone])[phone] Director: David Montez MDNRBC Automated0.0 per 100 WBCNormal0.0[facility] HospitalComment on above:Performed By: #### CDP ####[address] , [place] [id number])[phone] Director: VONDA Pecklatelet mean volume (Bld) [Entitic vol]8.9 fLNormal8.1-13.5[facility] HospitalComment on above:Performed By: #### CDP ####[address] [place] [address] Lab Director: Dacia Peck ([facility]) [#/Vol]243 10*3/gKPeribx952-616KaajlKettering Health Comment on above:Performed By: #### CDP ####[address] , [place] [address] Lab Director: STEVE PeckBC ([facility]) [#/Vol]4.20 10*6/uLLow4.21-5.77Kettering HealthComment on above: Performed By: #### CDP ####[address] [place] [address] Lab Director: CELINA Peck ([facility]) [#/Vol] 10.5 10*3/uLNormal3.5-11.3MLouis Stokes Cleveland VA Medical CenterComment on above:Performed By: #### CDP ####[address] [place] [address] Lab Director: David Montez MDCT ABDOMEN PELVIS WO CONTRASTon 77-21-8400BI ABDOMEN PELVIS WO CONTRASTNormalKettering HealthComp Metabolic Profon 40-14-9208[place] [Mass/Vol]4.1 g/dLNormal3.5-5.2MLouis Stokes [facility] Comment on above:Performed By: #### CP, LIP ####[address] [place] [address] Lab Director: David Montez MDAlbumin/Glob Ratio1.9Vsjtcj5.0-2.5Kettering HealthComment on above: Performed By: #### CP, LIP ####[address] , [place] [address] Lab Director: Jazzy Peckkaline Fbfa473 U/GNxlq18-194AxutfKettering HealthComment on above:Performed By: #### CP, LIP ####[address] [place] [phone] Director: David Montez MDALT [Catalytic activity/Vol]12 U/AXtficv31-18 Kettering HealthComment on above:Performed By: #### CP, LIP ####[address] [place] [address] Lab Director: David Montez MDAnion gap [Moles/Vol]14 mmol/LNormal9-16Kettering HealthComment on above:Performed By: #### CP, LIP ####[address] [place] [address] Lab Director: David Montez MDAST [Catalytic activity/Vol]18 U/PGzazaz42-12EtcbnKettering Health Comment on above:Result Comment: Specimen hemolysis has exceeded the interference as defined by Em. Value may be falsely increased. Suggest recollection if clinically indicated.Performed By: #### CP, LIP ####[address] [place] [address] Lab Director: David Montez MDBilirubin [Mass/Vol]0.3 mg/dLNormal0.00-1.20Kettering HealthComment on above:Performed By: #### CP, LIP ####[address] [place] [address] Lab Director: David Montez MDBUN/CRE Yhclt24Xaeirk9-56Hlvay Tiffin HospitalComment on above: Performed By: #### CP, LIP ####[address] [place] [address] Lab Director: PATTI Peckalcium [Mass/Vol] 9.5 mg/dLNormal8.6-10.4Kettering HealthComment on above:Performed By: #### CP, LIP ####[address] [place] [address] Lab Director: PATTI Peckhloride [Moles/Vol]104 mmol/L Ficjgl58-744BhhjfKettering HealthComment on above:Performed By: #### CP, LIP ####[address] [place] [phone] Director: PATTI PeckO2 [Moles/Vol]21 mmol/SGebxxs69-61LnaktKettering HealthComment on above:Performed By: #### CP, LIP ####[address] [place] [address] Lab Director: PATTI Peckreatinine [Mass/Vol]0.9 mg/dLNormal0.70-1.20Kettering HealthComment on above:Performed By: #### CP, LIP ####[address] [place] [address] Lab Director: David Montez MDGFR/1.73 sq M.predicted among non-blacks MDRD (S/P/Bld) [Vol rate/Area]90 mL/min/{1.73_m2}Normal>60Kettering HealthComment on above: Result Comment: These results are not intended for use in patients <18 years of age.eGFR resultsare calculated without a race factor using the 2020 CKD-EPI equation.Careful clinical correlation is recommended, particularly when comparing to results calculated using previous equations.The CKD-EPI equation is less accurate in patients with extremes of muscle mass, extra-renal metabolism of creatine, excessive creatine ingestion, or following therapy that affects renal tubular secretion.Performed By: #### CP, LIP ####[address] , [place] [address] Lab Director: David Montez MDGlucose [Mass/Vol]92 mg/zKJexjsw32-66KamolLouis Stokes Cleveland VA Medical CenterComment on above:Performed By: #### CP, LIP ####[address] [place] [address] Lab Director: VONDA Peckotassium [Moles/Vol]4.7 mmol/LNormal3.7-5.3Mercy Caruthers HospitalComment on above:Result Comment: Specimen hemolysis has exceeded the interference as defined by Em. Value may be falsely increased. Suggest recollection if clinically indicated. Performed By: #### CP, LIP ####[address] [place] [address] Lab Director: David Montez MDProtein [Mass/Vol] 7.8 g/dLNormal6.6-8.7Kettering HealthComment on above:Performed By: #### CP, LIP ####[address] [place] [address] Lab Director: GIN Peckodium [Moles/Vol]139 mmol/L Ebbzpk304-539LebwxKettering HealthComment on above:Performed By: #### CP, LIP ####[address] [place] [phone] Director: David Montez MDUrea nitrogen [Mass/Vol]16 mg/dLNormal8-23 Kettering HealthComment on above:Performed By: #### CP, LIP ####[address] [place] [address] Lab Director: David Montez MDLactic Acidon 43-31-3574Omlezwj [Moles/Vol]0.9 mmol/L Normal0.5-2.2Mercy Windham HospitalComment on above:Performed By: #### LACTIC ####[address] [place] [phone] Director: David Montez MDLipaseon 00-97-9677Bjgrtj [Catalytic activity/Vol]45 U/OTfvxsj70-93EfrwrKettering HealthComment on above:Performed By: #### CP, LIP ####[address] [place] [address] Lab Director: David Montez MDOcc Bld, Fecal Scrnon 74-95-7470Endfcy Blood 1NegativeNormtxNEGKettering HealthComment on above: Performed By: #### STLPCR ####[facility] [address] [place] [address] Lab Director: Chencho Olvera, [address] [place] [address] Lab Director: David Montez MD#### OBS, CDIFQ ####[address] [place] [address] Lab Director: GIN Peckpecimen 1 [id number] Kettering HealthComment on above:Performed By: #### LPCR ####[address] [place] [address] Lab Director: Chencho Olvera, [address] [place] [address] Lab Director: David Montez MD#### OBS, CDIFQ ####[address] [place] [address] Lab Director: Serafin Peckimen 1 Jtni2047EbljisBqzwwKettering HealthComment on above: Performed By: #### STLPCR ####[facility] [place] [address] Lab Director: Chencho Olvera, [address] [place] [address] Lab Director: David Montez MD#### OBS, CDIFQ ####[address] [place] [address] Lab Director: David Montez MDUA w/Reflex Cultureon 41-85-0158Hrxlynchr, SemiQt,UrNegativeNormalNEGMercy Caruthers HospitalComment on above:Performed By: #### UAX, UMICAO ####[address] [place] [address] Lab Director: Braden Peckood, UrineTRACEAbnormalNEGMerGreene Memorial Hospital HospitalComment on above:Performed By: #### UAX, UMICAO ####[address] [place] [address] Lab Director: PATTI Pecklarity (U)ClearNormalCLEARMercy Caruthers HospitalComment on above:Performed By: #### UAX, UMICAO ####[address] [place] [address] Lab Director: PATTI Peckolor (U)YellowNormalYELMercy Caruthers HospitalComment on above: Performed By: #### UAX, UMICAO ####[address] [place] [address] Lab Director: David Montez MDGlucose Ql (U)NegativeNormalNEGMerGreene Memorial Hospital HospitalComment on above:Performed By: #### UAX, UMICAO ####[address] [place] [address] Lab Director: David Montez MDKetones Ql (U)NegativeNormalNEG [facility] HospitalComment on above:Performed By: #### UAX, UMICAO ####[address] [place] [address] Lab Director: David Montez MDLeukocyte esterase Test strip Ql (U)TRACEAbnormalNEG Kettering HealthComment on above:Performed By: #### UAX, UMICAO ####[address] [place] [address] Lab Director: David Montez MDNitrite,UrNegativeNormalNEGKettering Health Comment on above:Performed By: #### NGUYỄN ESCOBEDO ####[address] [place] [address] Lab Director: VONDA Peck,Ur6.1Xkugub5.0-9.0Kettering HealthComment on above:Performed By: #### GREGG, UMICAO ####[address] [place] [address] Lab Director: VONDA Peckrotein Ql (U)NegativeNormalNEG Kettering HealthComment on above:Performed By: #### GREGG UMSHEAO ####[address] [place] [address] Lab Director: GIN Peckpec. Fluker,Ur1.899Ckzqsi1.010-1.020Kettering HealthComment on above:Performed By: #### ELÍAS ESCOBEDOO ####[address] [place] [address] Lab Director: David Montez MDUrobilinogen,UrNormalNormal0.0-1.0Kettering HealthComment on above:Performed By: #### ELÍAS ESCOBEDOO ####[address] [place] [address] Lab Director: David Montez MD Urinalysis,Microon [id number] cells LM Ql (Urine sed)2 TO 0Eiwnrh2-0 Kettering HealthComment on above:Performed By: #### GREGG, UMICAO ####[address] [place] [address] Lab Director: David Montez MDUrine RBC's0 TO 2Ktsxtz7-8Afubc Caruthers HospitalComment on above:Performed By: #### LUCRECIAX, UMICAO ####[address] , [place] [address] Lab Director: David Montez MDUrine WBC's2 TO 2Qkpjgn1-0AwjpaGaylord HospitalComment on above:Performed By: #### GREGG, UMICAO ####[address] , [place] 0[address] Lab Director: David Montez MDXR ABD NG TUBE PLACEMENT 1 VIEW on 87-57-6564OQ ABD NG TUBE PLACEMENT 1 VIEWXR ABD NG TUBE PLACEMENT 1 VIEW Abdomen: HISTORY: Enteric tube placement. Single view of the abdomen was obtained. Enteric tube tip is likely within mid stomach. Small bowelis distended to approximately 5.7 cm. Findings suggest small bowel obstruction. No free air. IMPRESSION: Suspect small bowel obstruction. Enteric tube tip within mid stomach. Finalized by Dimas Delgado MD on 10/09/2024 11:45 PMNormalProMedica Antelope Valley Hospital Medical CenterBasic Metab w/rfx MGon 20-12-1694Kchen gap [Moles/Vol]12 mmol/LNormal 9-16[facility] HospitalComment on above:Performed By: #### BMPX, CDP ####[address] [place] [address] Lab Director: David Montez MDBUN/CRE Mmwpj01Kuqmro7-38Qfghx Tiffin HospitalComment on above:Performed By: #### BMPX, CDP ####[address] , [place] 8[address] Lab Director: PATTI Peckalcium [Mass/Vol]8.6 mg/dLNormal8.6-10.4[facility] HospitalComment on above:Performed By: #### BMPX, CDP ####[address] , [place] [address]83 Lab Director: PATTI Peckhloride [Moles/Vol]105 mmol/RQeqplw82-690BkpnfKettering HealthComment on above:Performed By: #### BMPX, CDP ####[address] [place] [address] Lab Director: David Montez MDCO2 [Moles/Vol]23 mmol/BJqhcne22-79ZmzqwKettering HealthComment on above:Performed By: #### BMPX, CDP ####[address] [place] [address] Lab Director: PATTI Peckreatinine [Mass/Vol]0.8 mg/dLNormal 0.70-1.20Kettering HealthComment on above:Performed By: #### BMPX, CDP ####[address] , [place] [phone] Director: David Montez MDGFR/1.73 sq M.predicted among non-blacks MDRD (S/P/Bld) [Vol rate/Area]mL/min/{1.73_m2}Normal>60Kettering HealthComment on above:Result Comment: These results are not intended for use in patients <18 years of age.eGFR resultsare calculated without a race factor using the 2020 CKD-EPI equation.Careful clinical correlation is recommended, particularly when comparing to results calculated using previous equations.The CKD-EPI equation is less accurate in patients with extremes of muscle mass, extra-renal metabolism of creatine, excessive creatine ingestion, or following therapy that affects renal tubular secretion.Performed By: #### BMPX, CDP ####[address] [place] [address] Lab Director: David Montez MDGlucose [Mass/Vol]83 mg/iOInbicf64-51SevbaLouis Stokes Cleveland VA Medical CenterComment on above:Performed By: #### BMPX, CDP ####[address] [place] [address] Lab Director: VONDA Peckotassium [Moles/Vol]3.7 mmol/LNormal3.7-5.3Msumma healthy Windham HospitalComment on above:Result Comment: Specimen hemolysis has exceeded the interference as defined by Em. Value may be falsely increased. Suggest recollection if clinically indicated. Performed By: #### BMPX, CDP ####[address] [place] [address] Lab Director: GIN Peckodium [Moles/Vol]140 mmol/UZtwbdl937-532VahstKettering HealthComment on above: Performed By: #### BMPX, CDP ####[address] [place] [address] Lab Director: David Montez MDUrea nitrogen [Mass/Vol]12 mg/dLNormal8-23Kettering HealthComment on above:Performed By: #### BMPX, CDP ####[address] [place] [address] Lab Director: David Montez MDNatchaug Hospital Metabolic Panel w/ Reflex to MGon [id number] gap [Moles/Vol]12 mmol/L9 - 16 mmol/LBon [facility] HospitalCalcium [Mass/Vol]8.6 mg/dL8.6 - 10.4 mg/dLBon [facility] Chloride [Moles/Vol]105 mmol/L98 - 107 mmol/LBon [facility] HospitalCO2 [Moles/Vol]23 mmol/L20 - 31 mmol/LBon [facility] HospitalCreatinine [Mass/Vol] 0.8 mg/dL0.70 - 1.20 mg/dLBon [facility] HospitalEst, Glom Filt Rate- PINFBon [facility] HospitalComment on above: These results are not intended [...] therapy that affects renal tubular secretion. Glucose [Mass/Vol]83 mg/dL74 - 99 mg/dLBon [facility] HospitalPotassium [Moles/Vol]3.7 mmol/L3.7 - 5.3 mmol/LBon [facility] HospitalComment on above: Specimen hemolysis has exceeded the interference as defined by Em. Value may be falsely increased. Suggest recollection if clinically indicated. Sodium [Moles/Vol]140 mmol/L136 - 145 mmol/LBon [facility] HospitalUrea nitrogen [Mass/Vol]12 mg/dL8 - 23 mg/dLBon [facility] HospitalUrea nitrogen/Creatinine [Mass ratio]15 mg/mg9 - 20Bon [facility] HospitalCBC auto differentialon [id number] (Bld) [#/Vol] 0.03 10*3/uLBon [facility] HospitalBasophils/100 WBC (Bld)0 %0 - 2 %[facility] CenterEosinophils (Bld) [#/Vol]0.17 10*3/uLBon [facility] Eosinophils/100 WBC (Bld)2 %1 - 4 %[facility] Medical CenterErythrocyte distribution width (RBC) [Ratio]12.6 %11.8 - 14.4 %[facility] Hematocrit (Bld) [Volume fraction]33.4 %Low40.7 - 50.3 %[facility] Hemoglobin (Bld) [Mass/Vol]11 g/dLLow13.0 - 17.0 g/dLBon [facility] Immature granulocytes (Bld) [#/Vol][facility] CenterImmature granulocytes/100 WBC (Bld)0 %0[facility] CenterInterpretation and review of laboratory resultsAbnormalSentara Rmh Medical CenterLymphocytes/100 WBC (Bld)17 %Low24 - 43 %[facility] CenterLymphocytes/100 WBC (Bld)1.51 %[facility] HospitalH (RBC) [Entitic mass]32.1 pg25.2 - 33.5 pgSentara Martha Jefferson HospitalHC (RBC) [Mass/Vol]32.9 g/dL28.4 - 34.8 g/dLBon [facility] HospitalMCV (RBC) [Entitic vol]97.4 fL82.6 - 102.9 fLSentara Rmh Medical CenterMonocytes/100 WBC (Bld)8 %3 - 12 %Bon [facility] HospitalMonocytes/100 WBC (Bld)0.69 %[facility] CenterNeutrophils/100 WBC (Bld)72 %High36 - 65 %Bon [facility] HospitalNucleated RBC/100 WBC (Bld) [Ratio]0 %0.0 per 100 WBCSentara Rmh Medical CenterPlatelet mean volume (Bld) [Entitic vol]9.5 fL8.1 - 13.5 fLSentara Rmh Medical CenterPlatelets (Bld) [#/Vol]161 10*3/uLBon [facility] HospitalRBC (Bld) [#/Vol]3.43 10*6/uLLow4.21 - 5.77 m/uLSentara Rmh Medical CenterSegmented neutrophils/100 WBC (Bld)6.24 %[facility] CenterWBC other (Bld) [#/Vol] 8.7Bon [facility] HospitalCBC with Diffon 08-21-2024 Abs. Basophil0.03 k/uLNormal0.00-0.20MerGreene Memorial Hospital HospitalComment on above: Performed By: #### BMPX, CDP ####[address] [place] [id number] Lab Director: David Montez MD Abs.Imm.Granulocyte<0.23Nutajm9.00-0.30MerGaylord HospitalComment on above: Performed By: #### BMPX, CDP ####[address] [place] [address] lab Director: David Montez MDAbs.Neutrophil (Seg)6.24 k/uLNormal1.50-8.10MerGaylord HospitalComment on above:Performed By: #### BMPX, CDP ####[address] , [facility]83 Lab Director: David Montez MDBasophils/100 WBC (Bld)0 % Normal0-2Mercy Caruthers HospitalComment on above:Performed By: #### BMPX, CDP ####[address] , [phone] Director: David Montez MDEosinophils (Bld) [#/Vol]0.17 10*3/uLNormal 0.00-0.44MerGreene Memorial Hospital HospitalComment on above:Performed By: #### BMPX, CDP ####[address] , [place] [phone] Director: David Montez MDEosinophils/100 WBC (Bld)2 %Normal1-4Mer[facility] Caruthers HospitalComment on above:Performed By: #### BMPX, CDP ####[address] , [place] [address] Lab Director: David Montez MDErythrocyte distribution width (RBC) [Ratio]12.6 %Normal 11.8-14.4MerGreene Memorial Hospital HospitalComment on above:Performed By: #### BMPX, CDP ####[address] , [phone] Director: David Montez MDHematocrit (Bld) [Volume fraction]33.4 %Low 40.7-50.3Mer[facility] Caruthers HospitalComment on above:Performed By: #### BMPX, CDP ####[address] , [phone] Director: David Montez MDHemoglobin (Bld) [Mass/Vol]11.0 g/dLLow 13.0-17.0[facility] HospitalComment on above:Performed By: #### BMPX, CDP ####[address] [place] [phone] Director: Mahsa Peckmature granulocytes/100 WBC (Bld)0 %Normal0 Kettering HealthComment on above:Performed By: #### BMPX, CDP ####[address] [place] [address] Lab Director: David Montez MDLymphocytes (Bld) [#/Vol]1.51 10*3/uLNormal1.10-3.70 Kettering HealthComment on above:Performed By: #### BMPX, CDP ####[address] [place] [address] Lab Director: Luis Peckmphocytes/100 WBC (Bld)17 %Pkf66-70UkkudKettering HealthComment on above:Performed By: #### BMPX, CDP ####[address] [place] [address] Lab Director: FRANCHESCA ePck (RBC) [Entitic mass]32.1 eaWaxlpx03.2-33.5[facility] on above:Performed By: #### BMPX, CDP ####[address] [place] [address] Lab Director: FRANCHESCA PeckC (RBC) [Mass/Vol]32.9 g/xWQijiio74.4-34.8Kettering HealthComment on above:Performed By: #### BMPX, CDP ####[address] [place] [address] Lab Director: DUKE PeckCV (RBC) [Entitic vol]97.4 zNElzwci14.6-102.9Kettering HealthComment on above: Performed By: #### BMPX, CDP ####[address] [place] [address] Lab Director: DUKE Peckonocytes (Bld) [#/Vol]0.69 10*3/uLNormal0.10-1.20[facility] HospitalComment on above: Performed By: #### BMPX, CDP ####[address] [place] [address] Lab Director: DUKE Peckonocytes/100 WBC (Bld)8 %Normal3-12[facility] HospitalComment on above:Performed By: #### BMPX, CDP ####[address] , [place] [phone] Director: Maya Peckutrophil (Seg)72 %Tthj24-85 [facility] HospitalComment on above:Performed By: #### BMPX, CDP ####[address] , [place] [phone] Director: David Montez MDNRBC Automated0.0 per 100 WBCNormal0.0[facility] HospitalComment on above:Performed By: #### BMPX, CDP ####[address] , [place] [phone] Director: Abel Pecktelet mean volume (Bld) [Entitic vol]9.5 fLNormal8.1-13.5[facility] HospitalComment on above:Performed By: #### BMPX, CDP ####[address] [place] [address] Lab Director: VONDA Pecklatelets (Bld) [#/Vol]161 10*3/lANulxva196-117Rufou Tiffin HospitalComment on above:Performed By: #### BMPX, CDP ####[address] [place] [address] Lab Director: RONNIE Peck ([facility]) [#/Vol]3.43 10*6/uLLow4.21-5.77Kettering HealthComment on above:Performed By: #### BMPX, CDP ####[facility] [place] [address] lab Director: CELINA Peck (d) [#/Vol]8.7 10*3/uLNormal3.5-11.3Msumma healthy Caruthers HospitalComment on above: Performed By: #### BMPX, CDP ####[facility] [place] [address] lab Director: RAFAEL PeckG Rhythm Strip on 64-87-4135YUVPTTucson Heart HospitalXR ABDOMEN (KUB) (SINGLE AP VIEW)on 24-77-4414MK ABDOMEN (KUB) (SINGLE AP VIEW)[facility]XR Abdomen Single viewon . Similar mild ileus compared to the prior study dated 08/20/2024. [facility] CONSOLIDATEDEXAM: 1 VIEW XRAY OF THE ABDOMEN SUPINE 08/21/2024 06:21:30 AM COMPARISON: 08/20/2024 CLINICAL HISTORY: SBO. SBO; TECHNOLOGIST PROVIDED HISTORY: SBO FINDINGS: BOWEL: Similar mild ileus. PERITONEUM AND SOFT TISSUES: No abnormal calcifications. BONES: No acute osseous abnormality. [facility] Sergo Chino MD - 08/21/2024 EXAM: 1 VIEW XRAY OF THE ABDOMEN SUPINE 08/21/2024 06:21:30 AM COMPARISON: 08/20/2024 CLINICAL HISTORY: SBO. SBO; TECHNOLOGIST PROVIDED HISTORY: SBO FINDINGS: BOWEL: Similar mild ileus. PERITONEUM AND SOFT TISSUES: No abnormal calcifications. BONES: No acute osseous abnormality. IMPRESSION: 1. Similar mild ileus compared to the prior study dated 08/20/2024. [facility] CenterRadiology Study observation (narrative)[facility] CenterXR Abdomen Single viewOrdered By: Sergo Newsome on 39-05-4188Mzf [facility] Work Phone: Basic Metab w/rfx MGon 06-50-6349Kulgg gap [Moles/Vol] 12 mmol/LNormal9-16MerGreene [facility] Hospital HospitalComment on above:Performed By: #### TROPI, CDP, BNP, BMPX ####[address] [place] [address] [facility] Director: David Montez MDBUN/CRE Ratio18 Normal9-20[facility] HospitalComment on above:Performed By: #### TROPI, CDP, BNP, BMPX ####[address] [place] [address] Lab Director: PATTI Peckalcium [Mass/Vol]8.3 mg/dLLow 8.6-10.4[facility] HospitalComment on above:Performed By: #### TROPI, CDP, BNP, BMPX ####[address] [place] [address] Lab Director: PATTI Peckhloride [Moles/Vol]103 mmol/L Sjezdg71-184Cidyy [facility]iffin HospitalComment on above:Performed By: #### TROPI, CDP, BNP, BMPX ####[address] [place] [address] Lab Director: David Montez MDCO2 [Moles/Vol]21 mmol/LNormal 20-31[facility] HospitalComment on above:Performed By: #### TROPI, CDP, BNP, BMPX ####[address] , [place] [address]83 Lab Director: David Montez MDCreatinine [Mass/Vol]0.8 mg/dL Normal0.70-1.20MerGre[facility] Hospital HospitalComment on above:Performed By: #### TROPI, CDP, BNP, BMPX ####[address] [place] [address] Lab Director: David Montez MDGFR/1.73 sq M.predicted among non-blacks MDRD (S/P/Bld) [Vol rate/Area]mL/min/{1.73_m2}Normal>60MerGaylord HospitalComment on above:Result Comment: These results are not intended for use in patients <18 years of age.eGFR resultsare calculated without a race factor using the 2020 CKD-EPI equation.Careful clinical correlation is recommended, particularly when comparing to results calculated using previous equations.The CKD-EPI equation is less accurate in patients with extremes of muscle mass, extra-renal metabolism of creatine, excessive creatine ingestion, or following therapy that affects renal tubular secretion.Performed By: #### TROPI, CDP, BNP, BMPX ####[address] [place] [address] Lab Director: David Montez MDGlucose [Mass/Vol]102 mg/dLHigh 74-99[facility]ham HospitalComment on above:Performed By: #### TROPI, CDP, BNP, BMPX ####[address] , [place] [address] Lab Director: VONDA Peckotassium [Moles/Vol]3.9 mmol/L Normal3.7-5.3Mer[facility] HospitalComment on above:Performed By: #### TROPI, CDP, BNP, BMPX ####[address] [place] [address] Lab Director: GIN Peckodium [Moles/Vol]136 mmol/L Rmdapc214-007YmofbKettering HealthComment on above:Performed By: #### TROPI, CDP, BNP, BMPX ####[address] [place] [address] Lab Director: David Montez MDUrea nitrogen [Mass/Vol]14 mg/dLNormal8-23Kettering HealthComment on above:Performed By: #### TROPI, CDP, BNP, BMPX ####[facility] [place] [address] lab Director: David Montez MDNatchaug Hospital Metabolic Panel w/ Reflex to MGon 51-34-3279Yqqrh gap [Moles/Vol]12 mmol/L9 - 16 mmol/LBon [facility] HealthCalcium [Mass/Vol]8.3 mg/dLLow8.6 - 10.4 mg/dLBon [facility] Chloride [Moles/Vol]103 mmol/L98 - 107 mmol/LBon [facility] HealthCO2 [Moles/Vol]21 mmol/L20 - 31 mmol/LBon [facility] HospitalCreatinine [Mass/Vol] 0.8 mg/dL0.70 - 1.20 mg/dLBon [facility] HealthEst, Glom Filt Rate- PINFBon [facility] HospitalComment on above: These results are not intended [...] therapy that affects renal tubular secretion. Glucose [Mass/Vol]102 mg/iCRbpz66 - 99 mg/dLBon [facility] HealthPotassium [Moles/Vol]3.9 mmol/L3.7 - 5.3 mmol/LBon [facility] HospitalSodium [Moles/Vol] 136 mmol/L136 - 145 mmol/LBon [facility] HealthUrea nitrogen [Mass/Vol]14 mg/dL8 - 23 mg/dLBon [facility] HospitalUrea nitrogen/Creatinine [Mass ratio]18 mg/mg9 - 20Bon [facility] HospitalBrain Natri. Peptideon 32-36-9559Vgfqodtkcjg peptide B (Bld) [Mass/Vol]129 pg/mLHigh0-125Ohio [facility] Health Systemment on above:Performed By: #### TROPI, CDP, BNP, BMPX ####[facility] [place] [address] lab Director: David Montez MDBrain Natriuretic Peptideon 55-44-0284Mhudaaztthi peptide B (Bld) [Mass/Vol] 129 pg/mLHigh0 - 125 pg/mLSentara Rmh Medical CenterCBC auto differentialon 43-30-3122Vprvfkzoh (Bld) [#/Vol]0.04 10*3/uLBon [facility] Basophils/100 WBC (Bld)0 %0 - 2 %[facility] CenterEosinophils (Bld) [#/Vol]0.07 10*3/uLBon SecThe University of Toledo Medical CenterEosinophils/100 WBC (Bld)1 %1 - 4 % [facility] Medical CenterErythrocyte distribution width (RBC) [Ratio]12.6 %11.8 - 14.4 %[facility] Medical CenterHematocrit (Bld) [Volume fraction]36.7 %Low40.7 - 50.3 %[facility] Medical CenterHemoglobin (Bld) [Mass/Vol]12.2 g/dLLow13.0 - 17.0 g/dLBon [facility] HospitalImmature granulocytes (Bld) [#/Vol]0.06 10*3/uLBon SecCoshocton [facility] Centermature granulocytes/100 WBC (Bld)0 %0Bon [facility] HospitalInterpretation and review of laboratory resultsAbnormalBon [facility] HospitalLymphocytes/100 WBC (Bld)10 %Low24 - 43 %[facility] Lymphocytes/100 WBC (Bld)1.42 %[facility] HospitalH (RBC) [Entitic mass] 32.7 pg25.2 - 33.5 pgBon [facility] CenterHC (RBC) [Mass/Vol]33.2 g/dL28.4 - 34.8 g/dLBon SecUniversity Hospitals Parma Medical CenterV (RBC) [Entitic vol]98.4 fL82.6 - 102.9 fL [facility] CenterMonocytes/100 WBC (Bld)7 %3 - 12 %[facility] CenterMonocytes/100 WBC (Bld)1.02 %[facility] CenterNeutrophils/100 WBC (Bld)82 %High36 - 65 %[facility] CenterNucleated RBC/100 WBC (Bld) [Ratio]0 %0.0 per 100 WBCSentara Rmh Medical CenterPlatelet mean volume (Bld) [Entitic vol]8.8 fL8.1 - 13.5 fLSentara Rmh Medical CenterPlatelets (Bld) [#/Vol] 185 10*3/uLBon [facility] HospitalRBC (Bld) [#/Vol]3.73 10*6/uLLow4.21 - 5.77 m/uLSentara Rmh Medical CenterSegmented neutrophils/100 WBC (Bld)11.77 %HighSentara Rmh Medical CenterWBC other (Bld) [#/Vol]14.4HighMary Washington HospitalCBC with Diffon 66-88-1111Roe. Basophil0.04 k/uLNormal 0.00-0.20[facility] HospitalComment on above:Performed By: #### TROPI, CDP, BNP, BMPX ####[address] [place] [address] Lab Director: MDAbs. LivImm.Granulocyte0.06 k/uL Normal0.00-0.30[facility] HospitalComment on above:Performed By: #### TROPI, CDP, BNP, BMPX ####[address] [place] [address] Lab Director: Jaret Peck.Neutrophil (Seg)11.77 k/uL High1.50-8.10[facility] HospitalComment on above:Performed By: #### TROPI, CDP, BNP, BMPX ####[address] [place], [place] [id number] Lab Director: David Montez MDBasophils/100 WBC (Bld)0 % Normal0-2[facility] HospitalComment on above:Performed By: #### TROPI, CDP, BNP, BMPX ####[address] , [place] [address] Lab Director: David Montez MDEosinophils (Bld) [#/Vol]0.07 10*3/uLNormal0.00-0.44[facility]tering HealthComment on above:Performed By: #### TROPI, CDP, BNP, BMPX ####[address] , [place] [address] Lab Director: David Montez MDEosinophils/100 WBC (Bld)1 %Normal1-4[facility]tering HealthComment on above:Performed By: #### TROPI, CDP, BNP, BMPX ####[address] , [facility]21([facility])[phone] Director: David Montez MDErythrocyte distribution width (RBC) [Ratio]12.6 %Qayssv00.8-14.4[facility] Comment on above:Performed By: #### TROPI, CDP, BNP, BMPX ####[address] , [facility]83 Lab Director: David Montez MDHematocrit (Bld) [Volume fraction]36.7 %Low40.7-50.3Mer[facility] Windham HospitalComment on above:Performed By: #### TROPI, CDP, BNP, BMPX ####[address] , [phone] Director: David Montez MDHemoglobin (Bld) [Mass/Vol]12.2 g/dLLow 13.0-17.0[facility] HealthComment on above:Performed By: #### TROPI, CDP, BNP, BMPX ####[address] , [facility]83 Lab Director: David Montez MDImmature granulocytes/100 WBC (Bld)0 %Sxlmbu7Bkuyf [place] HospitalComment on above:Performed By: #### TROPI, CDP, BNP, BMPX ####[address] , [facility]83 [facility] Director: David Montez MDLymphocytes (Bld) [#/Vol]1.42 10*3/uLNormal1.10-3.70[facility] HospitalComment on above:Performed By: #### TROPI, CDP, BNP, BMPX ####[address] , [place] [address] Lab Director: Silas Peckhocytes/100 WBC (Bld)10 %Ain53-26Seyxi [place] HospitalComment on above:Performed By: #### TROPI, CDP, BNP, BMPX ####[address] , [facility]83[facility])[phone] Director: FRANCHESCA Peck (RBC) [Entitic mass]32.7 rlCbokiw73.2-33.5[facility] HospitalComment on above:Performed By: #### TROPI, CDP, BNP, BMPX ####[address] [place] [phone] Lab Director: FRANCHESCA PeckC (RBC) [Mass/Vol]33.2 g/dOEforit60.4-34.8[facility] HospitalComment on above: Performed By: #### TROPI, CDP, BNP, BMPX ####[address] , [facility]83[facility])[phone] Director: CHAMP Peck (RBC) [Entitic vol]98.4 eDPhaoxw00.6-102.9[facility] HospitalComment on above: Performed By: #### TROPI, CDP, BNP, BMPX ####[address] [phone] Director: David Montez MD Monocytes (Bld) [#/Vol]1.02 10*3/uLNormal0.10-1.20[facility] HealthComment on above:Performed By: #### TROPI, CDP, BNP, BMPX ####[address] , [place] [address])[phone] Director: DUKE Peckonocytes/100 WBC (Bld)7 %Normal3-12[facility]tering HealthComment on above:Performed By: #### TROPI, CDP, BNP, BMPX ####[address] , [place] [address])[phone] Director: David Montez MDNeutrophil (Seg)82 %Qess43-37RfvqpKettering HealthComment on above:Performed By: #### TROPI, CDP, BNP, BMPX ####[address] , [place] [address])[phone] Director: David Montez MDNRBC Automated0.0 per 100 WBCNormal0.0[facility]tering HealthComment on above:Performed By: #### TROPI, CDP, BNP, BMPX ####[address] , [place] [address])[phone] Director: Maria Luisa Peck mean volume (Bld) [Entitic vol]8.8 fLNormal8.1-13.5[facility]tering HealthComment on above:Performed By: #### TROPI, CDP, BNP, BMPX ####[address] , [place] [address])[phone] Director: Abel Pecktezeenat (Bld) [#/Vol]185 10*3/lONurbsx058-904Jmdsb [place] [facility] Comment on above:Performed By: #### TROPI, CDP, BNP, BMPX ####[facility] [place] , [place] [id number] Lab Director: STEVE Peck ([facility]) [#/Vol]3.73 10*6/uLLow4.21-5.77[facility] Comment on above:Performed By: #### TROPI, CDP, BNP, BMPX ####[facility] [place] , [place] [id number] lab Director: David Montez MDMADISON AVEN[facility] ([facility]) [#/Vol]14.4 10*3/uLHigh3.5-11.3MLouis Stokes [facility] Comment on above:Performed By: #### TROPI, CDP, BNP, BMPX ####[facility] [place] , [place] [phone] lab Director: David Montez [facility] MCALESTERardiac echo study Procedureon [id number] Root Index1.84 cm/m2[facility] Mer[facility] HealthAortic Root4 cmBon Secours Mercy HealthAortic Sinus Valsalva3.9 cmBon Secours Mercy HealthAortic Sinus Valsalva Index1.8 cm/m2[facility] HealthAV Cusp Mmode2.5 cmBon Secours Mercy HealthAV Mean Gradient3 mmHgBon Secours Mercy HealthAV Mean Velocity0.7 m/sBon Secours Mercy HealthAV Peak Gcrnvvnj4deGeSwg Secours Mercy HealthAV Peak Velocity1.1 m/sBon Secours Mercy HealthAV Velocity Ratio0.91Bon [facility] HealthAV VTI18.2 cmBon Secours Mercy HealthBody surface area Derived from formula2.22 m2[facility] HealthE/E' Lateral7.63[facility] HealthEF BP55 %55 - 100 %[facility] HealthEF Iiipgturc46 %[facility] HealthEst. RA Pressure3 mmHgBon Secours Mercy HealthFractional Shortening 2D29 %28 - 44 %[facility] HealthInterpretation and review of laboratory resultsAbnormalBon Secours Mercy HealthIVSd1.2 cmAbnormal0.6 - 1.0 cmBon Secours Mercy HealthLA Area 4C20.9 cm2Bon [facility]ours Mercy HealthLA Major Axis6.5 cmBon Secours Mercy HealthLA Volume Index MOD A4C25 ml/m216 - 34 ml/m2[facility] Mercy HealthLA Volume MOD A4C54 mL18 - 58 mLBon Secours Mercy HealthLV E' Lateral Velocity9.57 cm/sBon Secours Mercy HealthLV EDV A4C47 mLBon Secours Mercy HealthLV EDV Index A4C22 mL/m2[facility] HealthLV Ejection Fraction A4C57 %[facility] HealthLV ESV A4C20 mLBon Secours Mercy HealthLV ESV Index A4C9 mL/m2[facility] LV Mass 2D206.4 g88 - 224 gBon Secours Mercy HealthLV Mass 2D Index95.1 g/m249 - 115 g/m2Bon [facility] Mercy HealthLV RWT Ratio0.46Bon [facility] Mercy HealthLVIDd 4.8 cm4.2 - 5.9 cmBon Secours Mercy HealthLVIDd Index2.21 cm/m2[facility] HealthLVIDs3.4 cmBon Secours Mercy HealthLVIDs Index1.57 cm/m2[facility] Mer[facility] HealthLVOT Mean Sotkbdbe5mpWmJur Secours Mercy HealthLVOT Peak Qsdtebdq1lkJdOww Secours Mercy HealthLVOT Peak Velocity1 m/sBon Secours Mercy HealthLVOT VTI14.7 cmBon Secours Mercy HealthLVOT:AV VTI Index0.81[facility] HealthLVPWd1.1 cmAbnormal0.6 - 1.0 cmBon Secours Mercy HealthMV A Velocity0.72 m/sBon Secours Mercy HealthMV E Velocity0.73 m/sBon Secours Mercy HealthMV E Wave Deceleration Ftgx413 msBon Secours Mercy HealthMV E/A1.01[facility] HealthPV Max Velocity1.1 m/sBon Secours Mercy HealthPV Peak Qtpyhfwi6lfVbEre Secours Mercy HealthRV Basal Dimension3.5 cmBon Secours Mercy HealthTAPSE2.1 cm1.7 cmBon Secours Mercy HealthLeft Ventricle: Normal left ventricular systolic function with a visually estimated EF of 55 - 60%. Left ventricle size is normal. Mildly increased wall thickness. Normal wall motion. Grade I diastolic dysfunction with normal LAP. No significant valvular heart disease was seen. Image quality is suboptimal. No previous studies were available for comparison. Largely unremarkable study. Left Ventricle Normal left ventricular systolic function with a visually estimated EF of 55 - 60%. Left ventricle size is normal. Mildly increased wall thickness. Normal wall motion. Grade I diastolic dysfunction with normal LAP. Right Ventricle Right ventricle size is normal. Normal systolic function. TAPSE is normal. Left Atrium Left atrium size is normal. Right Atrium Right atrium size is normal. IVC/SVC IVC diameter is normal or and decreases greater than 50% during inspiration; therefore the estimated right atrial pressure is normal (~3 mmHg). IVC size is normal. Mitral Valve Valve structure is normal. No regurgitation. No stenosis noted. Tricuspid Valve Valve structure is normal. No regurgitation. No stenosis noted. Aortic Valve Valve structure is normal. No regurgitation. No stenosis. Pulmonic Valve The pulmonic valve visualization is suboptimal but appears to be functioning normally. Physiologically normal regurgitation. No stenosis noted. Ascending Aorta Mildly dilated aortic root. Ao root diameter is 4.0 cm. Pericardium No pericardial effusion. Study Details Image quality: suboptimal. No contrast was given.[facility] CV CPAFreeman Health System SecNetops Technology HealthRadiology Study observation (narrative)Bon SecNetops Technology HealthEKG 12 Lead on [id number] Cfsb53TAKMmb Secours Mercy HealthP Lskc06wuqndhzCyz Secours Mercy HealthP-R Doygjwqn325 msBon Secours Insurityy HealthQ-T Kgybnwfl305 msCobre Valley Regional Medical Center SecNetops Technology HealthQRS Pfzlzzbp92 msBon Secours Mercy HealthQTc Calculation (Bazett)444 msBon Secours Mercy HealthR [place]-19degreesBon Secours Insurityy HealthT Nahl61jvkwplfGma Secours Mercy HealthVentricular Nxrh22OZUVgs Secours Mercy HealthNormal sinus rhythm Minimal voltage criteria for LVH, may be normal variant ( R in aVL ) Borderline ECG ECG not diagnostic for Acute Coronary Syndrome; consider clinical findings When compared with ECG of 19-Aug-2024 05:07, No significant change was found Confirmed by Abdirizak Cox ([id number]) on 08/20/2024 8:07:21 [facility] RADIOLOGYAbdirizak fong MD - 08/20/2024 Normal sinus rhythm Minimal voltage criteria for LVH, may be normal variant ( R in aVL ) Borderline ECG ECG not diagnostic for Acute Coronary Syndrome; consider clinical findings When compared with ECG of 19-Aug-2024 05:07, No significant change was found Confirmed by Abdirizak Cox ([id number]) on 08/20/2024 8:07:21 AM [facility] HospitalEKG Rhythm Stripon 08-20-2024 [facility]No Panel Informationon 08-20-2024 Interpretation and review of laboratory resultsAbnormalRappahannock General HospitalPortable XR Chest AP single viewon [id number] acute cardiopulmonary process. [facility] CONSOLIDATEDEXAMINATION: ONE XRAY VIEW OF THE CHEST 08/20/2024 6:23 am COMPARISON: Chest radiograph 04/19/2024 HISTORY: ORDERING SYSTEM PROVIDED HISTORY: tachypnea TECHNOLOGIST PROVIDED HISTORY: tachypnea FINDINGS: Enteric tube projects past the GE junction with tip projecting over the gastric body. Chronic elevation of the left hemidiaphragm. No new focal consolidation. No pneumothorax. Unchanged cardiomediastinal silhouette. No acute osseous abnormality. [facility] Marti Chapman MD - 08/20/2024 EXAMINATION: ONE XRAY VIEW OF THE CHEST 08/20/2024 6:23 am COMPARISON: Chest radiograph 04/19/2024 HISTORY: ORDERING SYSTEM PROVIDED HISTORY: tachypnea TECHNOLOGIST PROVIDED HISTORY: tachypnea FINDINGS: Enteric tube projects past the GE junction with tip projecting over the gastric body. Chronic elevation of the left hemidiaphragm. No new focal consolidation. No pneumothorax. Unchanged cardiomediastinal silhouette. No acute osseous abnormality. IMPRESSION: No acute cardiopulmonary process. [facility] HospitalRadiology Study observation (narrative)[facility] Medical CenterTroponinon [id number] I.cardiac High sensitivity method [Mass/Vol]12 ng/L0 - 22 ng/LBon [facility] HospitalComment on above:High Sensitivity Troponin values cannot be compared with other Troponin methodologies.Troponin, High Sens12 ng/LNormal0-22K[facility] HealthComment on above:Result Comment: High Sensitivity Troponin values cannot be compared with other Troponin methodologies.Performed By: #### TROPI, CDP, BNP, BMPX ####[facility] [place] [phone] Director: AMAURI PeckR ABDOMEN (KUB) (SINGLE AP VIEW)on 08-20-2024 XR ABDOMEN (KUB) (SINGLE AP VIEW)NormalKettering HealthXR Abdomen Single viewon [id number] improvement in small bowel and colonic dilation. Enteric tube is no longer visualized. [facility] GIOVANNA CONSOLIDATEDEXAMINATION: ONE SUPINE XRAY VIEW(S) OF THE ABDOMEN 08/20/2024 6:23 am COMPARISON: 08/19/2024 HISTORY: ORDERING SYSTEM PROVIDED HISTORY: SBO TECHNOLOGIST PROVIDED HISTORY: SBO FINDINGS: Enteric tube is no longer visualized. Few minimally dilated loops of small bowel in the left lower quadrant measuring up to 3.1 cm. There is gaseous distension of the colon which is otherwise within normal limits. There is gaseous distension of the stomach. Colonic and small bowel dilation otherwise appears improved from 08/19/2024. osseous structures are stable. Amount stool in the rectum. [facility] Kylah Conway MD - 08/20/2024 EXAMINATION: ONE SUPINE XRAY VIEW(S) OF THE ABDOMEN 08/20/2024 6:23 am COMPARISON: 08/19/2024 HISTORY: ORDERING SYSTEM PROVIDED HISTORY: SBO TECHNOLOGIST PROVIDED HISTORY: SBO FINDINGS: Enteric tube is no longer visualized. Few minimally dilated loops of small bowel in the left lower quadrant measuring up to 3.1 cm. There is gaseous distension of the colon which is otherwise within normal limits. There is gaseous distension of the stomach. Colonic and small bowel dilation otherwise appears improved from 08/19/2024. osseous structures are stable. Amount stool in the rectum. IMPRESSION: Overall improvement in small bowel and colonic dilation. Enteric tube is no longer visualized. [facility] CenterRadiology Study observation (narrative)[facility] Medical CenterXR Abdomen Single viewOrdered By: Kylah Perkins on [id number] [facility] Work Phone: xr CHEST PORTABLEon [id number] CHEST PORTABLENormal Kettering HealthBasic Metab w/rfx MGon 36-25-3235Izzxs gap [Moles/Vol]12 mmol/LNormal9-16MerGre[facility] HospitalComment on above:Performed By: #### BMPX, CDP ####[address] [place] [address] Lab Director: David Montez MDBUN/CRE Zwmdh11Faay7-26Strva [place] HospitalComment on above:Performed By: #### BMPX, CDP ####[address] [place] [address] Lab Director: PATTI Peckalcium [Mass/Vol]8.6 mg/dLNormal8.6-10.4MerGreene Memorial Hospital HospitalComment on above:Performed By: #### BMPX, CDP ####[address] [place] [address] Lab Director: PATTI Peckhloride [Moles/Vol]107 mmol/DIwkyad30-039Bzzzr [place] HospitalComment on above: Performed By: #### BMPX, CDP ####[address] [place] [address] Lab Director: David Montez MDCO2 [Moles/Vol]18 mmol/EErw09-85Uxjaa [place] HospitalComment on above:Performed By: #### BMPX, CDP ####[address] [place] [address] Lab Director: David Montez MDCreatinine [Mass/Vol]0.9 mg/dLNormal 0.70-1.20MerGreene Memorial Hospital HospitalComment on above:Performed By: #### BMPX, CDP ####[address] [place] [phone] Director: David Montez MDGFR/1.73 sq M.predicted among non-blacks MDRD (S/P/Bld) [Vol rate/Area]mL/min/{1.73_m2}Normal>60K[facility] HealthComment on above:Result Comment: These results are not intended for use in patients <18 years of age.eGFR resultsare calculated without a race factor using the 2020 CKD-EPI equation.Careful clinical correlation is recommended, particularly when comparing to results calculated using previous equations.The CKD-EPI equation is less accurate in patients with extremes of muscle mass, extra-renal metabolism of creatine, excessive creatine ingestion, or following therapy that affects renal tubular secretion.Performed By: #### BMPX, CDP ####[address] [place] [address] Lab Director: David Montez MDGlucose [Mass/Vol]95 mg/lLUmncrh14-34HkoutLouis Stokes Cleveland VA Medical CenterComment on above:Performed By: #### BMPX, CDP ####[address] [place] [address] Lab Director: VONDA Peckotassium [Moles/Vol]4.2 mmol/LNormal3.7-5.3MLouis Stokes Cleveland VA Medical CenterComment on above:Result Comment: Specimen hemolysis has exceeded the interference as defined by Em. Value may be falsely increased. Suggest recollection if clinically indicated. Performed By: #### BMPX, CDP ####[address] [place] [address] Lab Director: GIN Peckodium [Moles/Vol]137 mmol/TXoheux741-388YprmsKettering HealthComment on above: Performed By: #### BMPX, CDP ####[address] [place] [address] Lab Director: David Montez MDUrea nitrogen [Mass/Vol]20 mg/dLNormal8-23[facility] on above:Performed By: #### BMPX, CDP ####[facility] [place] [address] lab Director: Sangeetha Peck Metabolic Panel w/ Reflex to MGon 10-01-4784Jrxnf gap [Moles/Vol]12 mmol/L9 - 16 mmol/LBon [facility] HospitalCalcium [Mass/Vol]8.6 mg/dL8.6 - 10.4 mg/dLBon [facility] Chloride [Moles/Vol]107 mmol/L98 - 107 mmol/LBon [facility] HospitalCO2 [Moles/Vol]18 mmol/LLow20 - 31 mmol/LBon [facility] HospitalCreatinine [Mass/Vol]0.9 mg/dL0.70 - 1.20 mg/dLBon [facility] HospitalEst, Glom Filt Rate- PINFBon [facility] on above: These results are not intended [...] therapy that affects renal tubular secretion. Glucose [Mass/Vol]95 mg/dL74 - 99 mg/dLBon [facility] HospitalInterpretation and review of laboratory resultsAbnormalBon [facility] HospitalPotassium [Moles/Vol]4.2 mmol/L3.7 - 5.3 mmol/LBon [facility] HospitalComment on above: Specimen hemolysis has exceeded the interference as defined by Em. Value may be falsely increased. Suggest recollection if clinically indicated. Sodium [Moles/Vol]137 mmol/L136 - 145 mmol/LBon [facility] HospitalUrea nitrogen [Mass/Vol]20 mg/dL8 - 23 mg/dLBon [facility] HospitalUrea nitrogen/Creatinine [Mass ratio]22 mg/mgHigh9 - 20Bon [facility] HospitalBon [facility] HospitalCBC auto differentialon [id number] (Bld) [#/Vol] 0.03 10*3/uLBon Secours Mercy Health Anderson HospitalBasophils/100 WBC (Bld)0 %0 - 2 %Bon [facility] HospitalEosinophils (Bld) [#/Vol]0.16 10*3/uLBon Secours [facility] Eosinophils/100 WBC (Bld)1 %1 - 4 %[facility] Medical CenterErythrocyte distribution width (RBC) [Ratio]13 %11.8 - 14.4 %[facility] Hematocrit (Bld) [Volume fraction]40.3 %Low40.7 - 50.3 %[facility] Hemoglobin (Bld) [Mass/Vol]13 g/dL13.0 - 17.0 g/dLBon SecThe [facility] Immature granulocytes (Bld) [#/Vol]0.03 10*3/uLBon Secours Mercy Health Anderson HospitalImmature granulocytes/100 WBC (Bld)0 %0Bon [facility] HospitalInterpretation and review of laboratory resultsAbnormalBon [facility] HospitalLymphocytes/100 WBC (Bld)17 %Low24 - 43 %[facility] Medical CenterLymphocytes/100 WBC (Bld)1.93 %[facility] HospitalH (RBC) [Entitic mass]31.7 pg25.2 - 33.5 pgBon [facility]ult[facility] County Health CenterHC (RBC) [Mass/Vol]32.3 g/dL28.4 - 34.8 g/dLBon [facility] HospitalMCV (RBC) [Entitic vol]98.3 fL82.6 - 102.9 fLBon [facility] HospitalMonocytes/100 WBC (Bld)8 %3 - 12 %[facility] SecOchsner Medical Center HealthMonocytes/100 WBC (Bld)0.87 %[facility] CenterNeutrophils/100 WBC (Bld)74 %High36 - 65 %[facility] CenterNucleated RBC/100 WBC (Bld) [Ratio]0 %0.0 per 100 WBCBon [facility] HospitalPlatelet mean volume (Bld) [Entitic vol]8.9 fL8.1 - 13.5 fLBon SecThe University of Toledo Medical CenterPlatelets (Bld) [#/Vol]263 10*3/uLBon [facility] HospitalRBC (Bld) [#/Vol]4.1 10*6/uLLow4.21 - 5.77 m/[facility] CarePlex HospitalSegmented neutrophils/100 WBC (Bld)8.62 %[facility] HospitalWBC other (Bld) [#/Vol]11.6HighMary Washington HospitalCB with Diffon [id number]. Basophil0.03 k/uLNormal0.00-0.20MerGre[facility] HospitalComment on above:Performed By: #### BMPX, CDP ####[address] , [place] [address] Lab Director: David Montez MD Abs.Imm.Granulocyte0.03 k/uLNormal0.00-0.30MerGre[facility] Hospital HospitalComment on above:Performed By: #### BMPX, CDP ####[address] [place] [address] Lab Director: David Montez MD Abs.Neutrophil (Seg)8.62 k/uLHigh1.50-8.10[facility] HospitalComment on above: Performed By: #### BMPX, CDP ####[address] [place] [address] Lab Director: David Montez MDBasophils/100 WBC (Bld)0 %Normal0-2[facility] HospitalComment on above:Performed By: #### BMPX, CDP ####[address] , [place] [address] Lab Director: David Montez MDEosinophils (Bld) [#/Vol]0.16 10*3/uL Normal0.00-0.44[facility] HospitalComment on above:Performed By: #### BMPX, CDP ####[address] [place] [address] Lab Director: David Montez MDEosinophils/100 WBC (Bld)1 %Normal1-4 [facility] HealthComment on above:Performed By: #### BMPX, CDP ####[address] [place] [address] Lab Director: David Montez MDErythrocyte distribution width (RBC) [Ratio]13.0 % Xtgfje61.8-14.4[facility] HospitalComment on above:Performed By: #### BMPX, CDP ####[address] , [facility]83 Lab Director: David Montez MDHematocrit (Bld) [Volume fraction] 40.3 %Low40.7-50.3Msumma healthy Caruthers HospitalComment on above:Performed By: #### BMPX, CDP ####[address] , [facility]83 Lab Director: David Montez MDHemoglobin (Bld) [Mass/Vol]13.0 g/dL Qabztk34.0-17.0[facility] HealthComment on above:Performed By: #### BMPX, CDP ####[address] , [facility]83 Lab Director: David Montez MDImmature granulocytes/100 WBC (Bld)0 %Ovbkjl7Isaat [place] HospitalComment on above:Performed By: #### BMPX, CDP ####[address] , [phone] Director: David Montez MDLymphocytes (Bld) [#/Vol]1.93 10*3/uLNormal 1.10-3.70K[facility] HealthComment on above:Performed By: #### BMPX, CDP ####[address] , [phone] Director: David Montez MDLymphocytes/100 WBC (Bld)17 %Ymt46-63Tgtab [place] HospitalComment on above:Performed By: #### BMPX, CDP ####[address] , [place] [phone] Director: DUKE PeckCH (RBC) [Entitic mass]31.7 mqRgzyph56.2-33.5[facility] HospitalComment on above:Performed By: #### BMPX, CDP ####[address] , [facility]83 Lab Director: DUKE PeckCHC (RBC) [Mass/Vol]32.3 g/aLUiwsge06.4-34.8[facility] Comment on above:Performed By: #### BMPX, CDP ####[address] , [phone] Director: DUKE PeckCV (RBC) [Entitic vol]98.3 lVUepnwb21.6-102.9[facility] HospitalComment on above:Performed By: #### BMPX, CDP ####[address] , [facility]83 Lab Director: DUKE Peckonocytes (Bld) [#/Vol]0.87 10*3/uLNormal0.10-1.20[facility] HospitalComment on above: Performed By: #### BMPX, CDP ####[address] [place] [address] Lab Director: DUKE Peckonocytes/100 WBC (Bld)8 %Normal3-12[facility] HospitalComment on above:Performed By: #### BMPX, CDP ####[address] , [facility]83 Lab Director: Darby Peck (Seg)74 %Samh87-90 [facility] HospitalComment on above:Performed By: #### BMPX, CDP ####[address] [place] [address] Lab Director: SOY Peck Automated0.0 per 100 WBCNormal0.0[facility] HospitalComment on above:Performed By: #### BMPX, CDP ####[address] [place] [address] Lab Director: Maria Luisa Peck mean volume (Bld) [Entitic vol]8.9 fLNormal8.1-13.5[facility] HospitalComment on above:Performed By: #### BMPX, CDP ####[address] [place] [address] Lab Director: Dacia Peck (Bld) [#/Vol]263 10*3/bSGhlonr585-147Rsetl Tiffin HospitalComment on above:Performed By: #### BMPX, CDP ####[address] [place] [address] Lab Director: RONNIE Peck (Bld) [#/Vol]4.10 10*6/uLLow4.21-5.77[facility] HospitalComment on above:Performed By: #### BMPX, CDP ####[address] [place] [address] Lab Director: CELINA Peck (Bld) [#/Vol]11.6 10*3/uLHigh3.5-11.3MLouis Stokes [facility] HospitalComment on above: Performed By: #### BMPX, CDP ####[address] [place] [address] Lab Director: CARLOS Peck 12 Leadon 13-39-1336Qtnyif Hfth42FABLxc Secours Mercy HealthP Nusc68qmlxcroJoe Secours Mercy HealthP-R Bgetyllw485 msBon Secours Mercy HealthQ-T Aoomwigw012 msBon Secours Mercy HealthQRS Yqabmxpr96 msBon Secours Mercy HealthQTc Calculation (Bazett)455 msBon Secours Mercy HealthR [place]-11degreesBon Secours Mercy HealthT Mrjq894kwsvsgkPui Secours Mercy HealthVentricular Snsc09YBORsc Secours Mercy HealthNormal sinus rhythm Minimal voltage criteria for LVH, may be normal variant ( R in aVL ) Abnormal QRS-T angle, consider primary T wave abnormality Abnormal ECG ECG not diagnostic for Acute Coronary Syndrome; consider clinical findings When compared with ECG of 18-Aug-2024 22:21, ST no longer elevated in Inferior leads Confirmed by Abdirizak Cox ([id number]) on 08/19/2024 8:15:10 AMPied[facility] - MidtownAbdirizak fong MD - 08/19/2024 Normal sinus rhythm Minimal voltage criteria for LVH, may be normal variant ( R in aVL ) Abnormal QRS-T angle, consider primary T wave abnormality Abnormal ECG ECG not diagnostic for Acute Coronary Syndrome; consider clinical findings When compared with ECG of 18-Aug-2024 22:21, ST no longer elevated in Inferior leads Confirmed by Abdirizak Cxo ([id number]) on 08/19/2024 8:15:10 AM [facility] HealthBon [facility]ours Mercy HealthEKG 12 leadon 37-16-8637Hhnqrs Ayvq03FUMLny [facility]ours Mer[facility] HealthP Wmlg86wnlpcqgVoz [facility] HealthP-R Xqfkklwv644 msBon Secours Mercy HealthQ-T Uqnnfxjq095 msBon [facility] Health QRS Qggausvo63 msBon Secours Mercy HealthQTc Calculation (Bazett)477 msBon Secours Mercy HealthR Ully11ohntlskWoy Secours Mercy HealthT Nhgo73xzhdnejTuc Secours Mercy HealthVentricular Eoly56LTYTvr [facility] HealthNormal sinus rhythm ST elevation, consider early repolarization, pericarditis, or injury Abnormal QRS-T angle, consider primary T wave abnormality Abnormal ECG ECG not diagnostic for Acute Coronary Syndrome; consider clinical findings When compared with ECG of 16-Jun-2024 18:43, minimal ST elevation now present in Inferior leads Confirmed by Abdirizak Cox ([id number]) on 08/19/2024 8:16:14 [facility] AMNAAbdirizak fong MD - 08/19/[address] elevation, consider early repolarization, pericarditis, or injury Abnormal QRS-T angle, consider primary T wave abnormality Abnormal ECG ECG not diagnostic for Acute Coronary Syndrome; consider clinical findings When compared with ECG of 16-Jun-2024 18:43, minimal ST elevation now present in Inferior leads Confirmed by Abdirizak Cox ([id number]) on 08/19/2024 8:16:14 AM [facility] HospitalEKG Rhythm Stripon 08-19-2024 [facility] HospitalTroponinon 97-93-2524Hubmjlkv I.cardiac High sensitivity method [Mass/Vol]12 ng/L0 - 22 ng/LBon [facility] HospitalComment on above:High Sensitivity Troponin values cannot be compared with other Troponin methodologies.[facility] Hospitalnin, High Sens12 ng/LNormal0-22[facility] HealthComsouthwest regional rehabilitation center on above:Result Comment: High Sensitivity Troponin values cannot be compared with other Troponin methodologies.Performed By: #### TROPI ####[facility] [place] [address] lab Director: GARCÍA Peck ABDOMEN (KUB) (SINGLE AP VIEW)on 75-45-1289LM ABDOMEN (KUB) (SINGLE AP VIEW)[facility] HospitalXR Abdomen Single viewon 00-66-2565Ixljmtfa dilated loops of small and large bowel, which may represent ileus or partial small bowel obstruction. [facility] RIS CONSOLIDATEDEXAMINATION: ONE SUPINE XRAY VIEW(S) OF THE ABDOMEN 08/19/2024 6:28 am COMPARISON: X-ray abdomen 07/15/2024, CT abdomen pelvis 08/18/2024 HISTORY: ORDERING SYSTEM PROVIDED HISTORY: SBO TECHNOLOGIST PROVIDED HISTORY: SBO FINDINGS: Multiple dilated loops of small bowel measuring up to 5.5 cm and large bowel measuring up to 10.4 cm. Enteric tube side hole and tip project over the gastric body. No evidence of free air within the limitations of supine imaging. No acute osseous abnormality. Marti Ambrocio MD - 08/19/2024 EXAMINATION: ONE SUPINE XRAY VIEW(S) OF THE ABDOMEN 08/19/2024 6:28 am COMPARISON: X-ray abdomen 07/15/2024, CT abdomen pelvis 08/18/2024 HISTORY: ORDERING SYSTEM PROVIDED HISTORY: SBO TECHNOLOGIST PROVIDED HISTORY: SBO FINDINGS: Multiple dilated loops of small bowel measuring up to 5.5 cm and large bowel measuring up to 10.4 cm. Enteric tube side hole and tip project over the gastric body. No evidence of free air within the limitations of supine imaging. No acute osseous abnormality. IMPRESSION: Multiple dilated loops of small and large bowel, which may represent ileus or partial small bowel obstruction. [facility] CenterRadiology Study observation (narrative)Stafford HospitalNextworthXR Abdomen Single viewOrdered By: Marti Tolentino on 47-49-1302Tbv [facility] Attunity Work Phone: cbc with Auto Differentialon 09-11-1214Jidewwqwk (Bld) [#/Vol]0.06 10*3/uLBon [facility] HospitalBasophils/100 WBC (Bld)0 %0 - 2 %[facility] Medical CenterEosinophils (Bld) [#/Vol]0.2 10*3/uLBon [facility] HospitalEosinophils/100 WBC (Bld)1 %1 - 4 %[facility] AttunityErythrocyte distribution width (RBC) [Ratio]12.9 %11.8 - 14.4 %[facility] Hematocrit (Bld) [Volume fraction]43.2 %40.7 - 50.3 %[facility] Hemoglobin (Bld) [Mass/Vol]14 g/dL13.0 - 17.0 g/dLBon [facility] Attunity Immature granulocytes (Bld) [#/Vol]0.06 10*3/uLBon [facility] HospitalImmature granulocytes/100 WBC (Bld)0 %0Bon [facility] HospitalInterpretation and review of laboratory resultsAbnormalBon SecThe University of Toledo Medical CenterLymphocytes/100 WBC (Bld)13 %Low24 - 43 %Bon SecThe University of Toledo Medical CenterLymphocytes/100 WBC (Bld)1.93 %Bon [facility] CenterH (RBC) [Entitic mass]32.6 pg25.2 - 33.5 pgBon [facility] CenterHC (RBC) [Mass/Vol]32.4 g/dL28.4 - 34.8 g/dLBon SecUniversity Hospitals Parma Medical CenterV (RBC) [Entitic vol]100.5 fL82.6 - 102.9 fLBon [facility] HospitalMonocytes/100 WBC (Bld)8 %3 - 12 %[facility] SecThe University of Toledo Medical CenterMonocytes/100 WBC (Bld)1.19 %[facility] CenterNeutrophils/100 WBC (Bld)78 %High36 - 65 %[facility] CenterNucleated RBC/100 WBC (Bld) [Ratio]0 %0.0 per 100 WBCBon [facility] HospitalPlatelet mean volume (Bld) [Entitic vol]8.8 fL8.1 - 13.5 fLBon [facility] HealthPlatelets (Bld) [#/Vol]285 10*3/uLBon [facility] HospitalRBC (Bld) [#/Vol]4.3 10*6/uL4.21 - 5.77 m/uLSentara Rmh Medical CenterSegmented neutrophils/100 WBC (Bld)11.34 %HighBon [facility] HospitalWBC other (Bld) [#/Vol]14.8HighBon [facility] Indian HospitalCBC with Diffon 51-96-6868Szc. Basophil0.06 k/uLNormal0.00-0.20[facility] HospitalComment on above:Performed By: #### LIP, CP, CDP ####[facility] [place] [address] lab Director: David Montez MD Abs.Imm.Granulocyte0.06 k/uLNormal0.00-0.30[facility] HealthComment on above:Performed By: #### SUMIT DIAZ, CDP ####[address] [place], [place] [address])[phone] Director: David Montez MD Abs.Neutrophil (Seg)11.34 k/uLHigh1.50-8.10[facility]tering HealthComment on above:Performed By: #### SUMIT DIAZ, CDP ####[address] [place], [place] [address])[phone] Director: David Montez MD Basophils/100 WBC (Bld)0 %Normal0-2MLouis Stokes Cleveland VA Medical CenterComment on above: Performed By: #### SUMIT DIAZ, CDP ####[address] [place], [place] [address])[phone] Director: David Montez MD Eosinophils (Bld) [#/Vol]0.20 10*3/uLNormal0.00-0.44[facility]tering HealthComment on above:Performed By: #### SUMIT DIAZ, CDP ####[address] [place] [id number])[phone] Director: David Montez MD Eosinophils/100 WBC (Bld)1 %Normal1-4K[facility]tering HealthComment on above: Performed By: #### SUMIT DIAZ, CDP ####[address] , [facility]83[facility])[phone] Director: David Montez MD Erythrocyte distribution width (RBC) [Ratio]12.9 %Xnjmjs28.8-14.4[facility]tering HealthComment on above:Performed By: #### SUMIT DIAZ, CDP ####[address] [place] [id number])[phone] Director: David Montez MDHematocrit (Bld) [Volume fraction]43.2 %Zzznsd51.7-50.3[facility]uthers HospitalComment on above:Performed By: #### SUMIT DIAZ, CDP ####[address] [place] [address] Lab Director: David Montez MDHemoglobin (Bld) [Mass/Vol]14.0 g/rMBaffme71.0-17.0[facility] HospitalComment on above:Performed By: #### EMILY CP, CDP ####[address] [place] [address] Lab Director: Malou Peckture granulocytes/100 WBC (Bld)0 %Clhpaw5TomjdKettering Health Comment on above:Performed By: #### SUMIT DIAZ, CDP ####[address] , [facility]83 Lab Director: David Montez MDLymphocytes (Bld) [#/Vol]1.93 10*3/uLNormal1.10-3.70[facility] HospitalComment on above:Performed By: #### SUMIT DIAZ, CDP ####[address] [place] [address] Lab Director: Luis Peckmphocytes/100 WBC (Bld)13 %Qgu83-64OomodKettering HealthComment on above:Performed By: #### SUMIT DIAZ, CDP ####[address] [place] [address] Lab Director: DUKE PeckCH (RBC) [Entitic mass]32.6 mpJfjxkh72.2-33.5MerGreene Memorial Hospital HospitalComment on above: Performed By: #### LIP CP, CDP ####[address] [place] [address] Lab Director: FRANCHESCA PeckC (RBC) [Mass/Vol]32.4 g/wTNjpvrm70.4-34.8[facility] HospitalComment on above: Performed By: #### SUMIT DIAZ, CDP ####[address] , [place] [address])[phone] Director: DUKE PeckCV (RBC) [Entitic vol]100.5 sEHxrdqz81.6-102.9[facility]tering HealthComment on above: Performed By: #### SUMIT DIAZ, CDP ####[address] [place] [address] Lab Director: DUKE Peckonocytes (Bld) [#/Vol]1.19 10*3/uLNormal0.10-1.20[facility] HospitalComment on above: Performed By: #### SUMIT DIAZ, CDP ####[address] , [facility]83[facility])[phone] Director: David Montez MD Monocytes/100 WBC (Bld)8 %Normal3-12[facility]tering HealthComment on above: Performed By: #### SUMIT DIAZ, CDP ####[address] , [place] [address])[phone] Director: David Montez MD Neutrophil (Seg)78 %Eoen56-08GgcxqGaylord HospitalComment on above:Performed By: #### SUMIT DIAZ, CDP ####[address] [place] [address] Lab Director: David Montez MDNRBC Automated0.0 per 100 WBCNormal0.0[facility] HospitalComment on above:Performed By: #### SUMIT DIAZ, CDP ####[address] [place] [address] Lab Director: VONDA Pecklatelet mean volume (Bld) [Entitic vol]8.8 fLNormal8.1-13.5[facility]tering HealthComment on above:Performed By: #### SUMIT DIAZ, CDP ####[address] [place] [address] Lab Director: Dacia Peck ([facility]) [#/Vol]285 10*3/vESsjdih275-065VyqpuKettering HealthComment on above:Performed By: #### SUMIT DIAZ, CDP ####[address] [place] [address] Lab Director: STEVE Peck ([facility]) [#/Vol] 4.30 10*6/uLNormal4.21-5.77[facility] HealthComment on above:Performed By: #### SUMIT DIAZ, CDP ####[address] [place] [address] Lab Director: CELINA Peck ([facility]) [#/Vol]14.8 10*3/uLHigh3.5-11.3Msumma healthy Caruthers HospitalComment on above:Performed By: #### SUMIT DIAZ, CDP ####[address] , [place] [address] Lab Director: PATTI Pecktawny 89-00-8537Ztalevr [Mass/Vol] 4.3 g/dL3.5 - 5.2 g/dLBon [facility] HospitalAlbumin/Globulin [Mass ratio]1.2 {ratio}1.0 - 2.5Bon [facility] HealthALP [Catalytic activity/Vol]201 U/LHigh 40 - 129 U/LBon [facility] HealthALT [Catalytic activity/Vol]16 U/L10 - 50 U/LBon [facility] HospitalAnion gap [Moles/Vol]12 mmol/L9 - 16 mmol/LBon [facility] HealthAST [Catalytic activity/Vol]17 U/L10 - 50 U/LBon [facility] HospitalBilirubin [Mass/Vol]mg/dL0.00 - 1.20 mg/dLBon [facility] Calcium [Mass/Vol]9.5 mg/dL8.6 - 10.4 mg/dLBon [facility] HospitalChloride [Moles/Vol]106 mmol/L98 - 107 mmol/LBon [facility] HospitalCO2 [Moles/Vol]22 mmol/L20 - 31 mmol/LBon [facility] HospitalCreatinine [Mass/Vol]1.1 mg/dL0.70 - 1.20 mg/dLBon [facility] HospitalEst, Glom Filt Rate74- PINFBon [facility] HospitalComment on above: These results are not intended [...] therapy that affects renal tubular secretion. Glucose [Mass/Vol]90 mg/dL74 - 99 mg/dLBon [facility] HospitalInterpretation and review of laboratory resultsAbnormalBon [facility] HospitalPotassium [Moles/Vol]3.9 mmol/L3.7 - 5.3 mmol/LBon [facility] HospitalProtein [Mass/Vol]8 g/dL6.6 - 8.7 g/dLBon [facility] HospitalSodium [Moles/Vol]140 mmol/L136 - 145 mmol/LBon [facility] HospitalUrea nitrogen [Mass/Vol]23 mg/dL8 - 23 mg/dLBon [facility] HospitalUrea nitrogen/Creatinine [Mass ratio]21 mg/mgHigh9 - 20Bon [facility] HospitalCT ABDOMEN PELVIS W IV CONTRASTon [id number] ABDOMEN PELVIS W IV CONTRASTNormalKettering HealthCT Abdomen and Pelvis W contrast Sky . History of small-bowel obstruction with prior partial resection and anastomosis in the left lower quadrant. 2. Current pattern of dilation of the stomach, small bowel and transverse colon with no focal transition point. Ileus or enteritis may be considered. A partial small bowel obstruction cannot be excluded given prior history. 3. Stable subcapsular hematoma of the left kidney. MHPN RIS CONSOLIDATEDEXAMINATION: CT OF THE ABDOMEN AND PELVIS WITH CONTRAST 08/18/2024 6:53 pm TECHNIQUE: CT of the abdomen and pelvis was performed with the administration of intravenous contrast. Multiplanar reformatted images are provided for review. Automated exposure control, iterative reconstruction, and/or weight based adjustment of the mA/kV was utilized to reduce the radiation dose to as low as reasonably achievable. COMPARISON: 07/14/2024 CT HISTORY: ORDERING SYSTEM PROVIDED HISTORY: abdo pain vomiting- previous sbo TECHNOLOGIST PROVIDED HISTORY: abdo pain vomiting- previous sbo Decision Support Exception - unselect if not a suspected or confirmed emergency medical condition->Emergency Medical Condition (MA) FINDINGS: Lower Chest: Scattered interstitial opacities at the lung bases. Base of the heart appears normal. Organs: Contracted gallbladder. Liver, biliary ducts, pancreas and spleen normal. Normal adrenal glands. Mild cortical thinning of the bilateral kidneys. Peripherally calcified crescentic collection of low-density fluid superficial to the left kidney representing a remote subcapsular hematoma that is stable in appearance. GI/Bowel: Severe distention of the stomach with air-fluid level. No mucosal abnormality. Duodenum is normal. Prior history of partial small bowel resection with anastomosis in the left lower quadrant. Similar pattern of dilation of the small bowel proximal to the anastomosis site with air-fluid levels. Distal to this, there is slight decompression of the ileum. No mucosal lesion. No pneumatosis or perforation. A normal appendix is visualized. Dilation of the transverse colon is also noted. No mucosal abnormality. Pelvis: Decompressed bladder. Normal prostate. Peritoneum/Retroperitoneum: No free fluid or focal fluid. Normal aorta. Bones/Soft Tissues: Diffuse degenerative changes in the visualized thoracic and lumbar spine with no acute skeletal finding. [facility] ENOCAndres villatoro IV, MD - 08/18/2024 EXAMINATION: CT OF THE ABDOMEN AND PELVIS WITH CONTRAST 08/18/2024 6:53 pm TECHNIQUE: CT of the abdomen and pelvis was performed with the administration of intravenous contrast. Multiplanar reformatted images are provided for review. Automated exposure control, iterative reconstruction, and/or weight based adjustment of the mA/kV was utilized to reduce the radiation dose to as low as reasonably achievable. COMPARISON: 07/14/2024 CT HISTORY: ORDERING SYSTEM PROVIDED HISTORY: abdo pain vomiting- previous sbo TECHNOLOGIST PROVIDED HISTORY: abdo pain vomiting- previous sbo Decision Support Exception - unselect if not a suspected or confirmed emergency medical condition->Emergency Medical Condition (MA) FINDINGS: Lower Chest: Scattered interstitial opacities at the lung bases. Base of the heart appears normal. Organs: Contracted gallbladder. Liver, biliary ducts, pancreas and spleen normal. Normal adrenal glands. Mild cortical thinning of the bilateral kidneys. Peripherally calcified crescentic collection of low-density fluid superficial to the left kidney representing a remote subcapsular hematoma that is stable in appearance. GI/Bowel: Severe distention of the stomach with air-fluid level. No mucosal abnormality. Duodenum is normal. Prior history of partial small bowel resection with anastomosis in the left lower quadrant. Similar pattern of dilation of the small bowel proximal to the anastomosis site with air-fluid levels. Distal to this, there is slight decompression of the ileum. No mucosal lesion. No pneumatosis or perforation. A normal appendix is visualized. Dilation of the transverse colon is also noted. No mucosal abnormality. Pelvis: Decompressed bladder. Normal prostate. Peritoneum/Retroperitoneum: No free fluid or focal fluid. Normal aorta. Bones/Soft Tissues: Diffuse degenerative changes in the visualized thoracic and lumbar spine with no acute skeletal finding. IMPRESSION: 1. History of small-bowel obstruction with prior partial resection and anastomosis in the left lower quadrant. 2. Current pattern of dilation of the stomach, small bowel and transverse colon with no focal transition point. Ileus or enteritis may be considered. A partial small bowel obstruction cannot be excluded given prior history. 3. Stable subcapsular hematoma of the left kidney. [facility] CenterRadiology Study observation (narrative)[facility] Medical CenterCT Abdomen and Pelvis W contrast IVOrdered By: Andres Hinojosa on 21-41-0697Vef [facility] Work Phone: Comp Metabolic Profon 96-52-0053Clegsdy [Mass/Vol]4.3 g/dLNormal3.5-5.2[facility] HospitalComment on above:Performed By: #### LIP, CP, CDP ####[facility] , [place] [address] Lab Director: David Montez, MDAlbumin/Glob Ratio1.9Ctpxie6.0-2.5 Kettering HealthComment on above:Performed By: #### SUMIT DIAZ, CDP ####[address] [place] [address] Lab Director: Linda Peck Zqtq122 U/EUylu89-929NpnitKettering Health Comment on above:Performed By: #### EMILY CP, CDP ####[address] [place] [address] Lab Director: David Montez MDALT [Catalytic activity/Vol]16 U/NUugdyd20-61HpguxKettering Health Comment on above:Performed By: #### SUMIT DIAZ, CDP ####[address] [place] [address] Lab Director: Tomer Peck gap [Moles/Vol]12 mmol/LNormal9-16K[facility]tering HealthComment on above:Performed By: #### SUMIT DIAZ, CDP ####[address] [place] [address] Lab Director: David Montez MDAST [Catalytic activity/Vol]17 U/MXvtsib49-54ItijlKettering HealthComment on above: Performed By: #### SUMIT DIAZ, CDP ####[address] , [place] [address])[phone] Director: David Montez MDBilirubin [Mass/Vol]mg/dLNormal0.00-1.20K[facility]tering HealthComment on above:Performed By: #### SUMIT DIAZ, CDP ####[address] [place] [address] Lab Director: David Montez MDBUN/CRE Ratio21 High9-20Kettering HealthComment on above:Performed By: #### EMILY CP, CDP ####[address] , [place] [phone] Director: PATTI Peckalcium [Mass/Vol]9.5 mg/dLNormal8.6-10.4K[facility]tering HealthComment on above:Performed By: #### SUMIT DIAZ, CDP ####[address] , [facility]83 Lab Director: PATTI Peckhloride [Moles/Vol]106 mmol/XUycbjr33-462GckzuKettering HealthComment on above:Performed By: #### SUMIT DIAZ, CDP ####[address] , [facility]83 Lab Director: PATTI PeckO2 [Moles/Vol]22 mmol/SOfwovg66-57VqoddKettering HealthComment on above:Performed By: #### SUMIT DIAZ, CDP ####[address] , [facility]83 Lab Director: David Montez MD Creatinine [Mass/Vol]1.1 mg/dLNormal0.70-1.20K[facility]tering HealthComment on above:Performed By: #### SUMIT DIAZ, CDP ####[address] , [facility]83 Lab Director: David Montez MDGFR/1.73 sq M.predicted among non-blacks MDRD (S/P/Bld) [Vol rate/Area]74 mL/min/{1.73_m2}Normal>60Kettering HealthComment on above:Result Comment: These results are not intended for use in patients <18 years of age.eGFR results are calculated without a race factor using the 2020 CKD-EPI equation.Careful clinical correlation is recommended, particularly when comparing to results calculated using previous equations.The CKD-EPI equation is less accurate in patients with extremes of muscle mass, extra-renal metabolism of creatine, excessive creatine ingestion, or following therapy that affects renal tubular secretion.Performed By: #### SUMIT DIAZ, CDP ####[address] [place] [address] Lab Director: David Montez MD Glucose [Mass/Vol]90 mg/wUKojtij06-40Lekgb [facility]iffin HospitalComment on above: Performed By: #### LIP, CP, CDP ####[address] [place] [address] Lab Director: David Montez MDPotassium [Moles/Vol]3.9 mmol/LNormal3.7-5.3MLouis Stokes [facility] Center HospitalComment on above: Performed By: #### SUMIT DIAZ, CDP ####[address] [place] [address] Lab Director: David Montez MDProtein [Mass/Vol]8.0 g/dLNormal6.6-8.7[facility] HospitalComment on above:Performed By: #### SUMIT DIAZ, CDP ####[address] [place] [address] Lab Director: GIN Peckodium [Moles/Vol] 140 mmol/DEkljao134-795IbujgKettering HealthComment on above:Performed By: #### EMILY CP, CDP ####[address] [place] [address] Lab Director: David Montez MDUrea nitrogen [Mass/Vol]23 mg/dL Normal8-23Kettering HealthComment on above:Performed By: #### EMILY, CP, CDP ####[address] [place] [phone] Director: David Montez MDLipaseon 21-46-1212Bmwzmj [Catalytic activity/Vol]51 U/L13 - 60 U/LBon Secours Mercy Health Anderson HospitalLipase [Catalytic activity/Vol]51 U/CHeucji08-14Ypzvh Tiffin HospitalComment on above:Performed By: #### EMILY, CP, CDP ####[facility] , [place] [id number] lab Director: David Montez MDNo Panel Informationon 04-13-5869Qdr [facility] HospitalTroponinon 71-82-5057Zlmzldpx I.cardiac High sensitivity method [Mass/Vol]13 ng/L0 - 22 ng/LBon [facility] HospitalComment on above:High Sensitivity Troponin values cannot be compared with other Troponin methodologies.Bon [facility] HospitalTroponin, High Sens13 ng/L Normal0-22MerGaylord HospitalComsouthwest regional rehabilitation center on above:Result Comment: High Sensitivity Troponin values cannot be compared with other Troponin methodologies.Performed By: #### TROPI ####[address] , [place] [address] lab Director: David Montez MDUrinalysison 08-18-2024 Bilirubin Ql (U)NegativeNEGATIVEBon SecDeer Park Hospitaly HealthClarity (U)ClearClearBon [facility] HealthColor (U)YellowYellowBon [facility] HospitalGlucose Test strip (U) [Mass/Vol]NegativeNEGATIVE mg/dLBon [facility] HospitalHemoglobin Auto test strip Ql (U)NegativeNEGATIVEBon [facility] HealthInterpretation and review of laboratory resultsAbnormalBon SecDeer Park Hospitaly HealthKetones (U) [Mass/Vol]NegativeNEGATIVE mg/dLBon [facility] HospitalLeukocyte esterase Test strip Ql (U)NegativeNEGATIVEBon [facility] HealthNitrite Ql (U)Negative NEGATIVEBon SecDeer Park Hospitaly HealthpH (U)6 [pH]5.0 - 9.0Bon [facility] Health Protein (U) [Mass/Vol]NegativeNEGATIVE mg/dLBon [facility] Hospitaly HealthSpecific gravity (U) [Rel density]1.105Pygz0.010 - 1.020Bon [facility] Urobilinogen Qn (U)Normal0.0 - 1.0 EU/dLBon SecDeer Park Hospitaly HealthBon [facility] HealthUrinalysis, Routineon 95-73-8676Jyvtgwsqz, SemiQt,UrNegativeNormal NEGMercy Caruthers HospitalComment on above:Performed By: #### UA ####[address] , [place] [address] Lab Director: Braden Peckood, UrineNegativeNormalNEGMercy Caruthers HospitalComment on above:Performed By: #### UA ####[address] , [facility] Lab Director: PATTI Pecklarity (U)Clear NormalCLEARMercy Caruthers HospitalComment on above:Performed By: #### UA ####[address] , [facility] Lab Director: PATTI Peckolor (U)YellowNormalYELMercy Caruthers HospitalComment on above:Performed By: #### UA ####[address] , [facility] Director: Dvaid Montez MDGlucose Ql (U)NegativeNormalNEGMercy Caruthers HospitalComment on above:Performed By: #### UA ####[address] , [facility] Lab Director: David Montez MDKetones Ql (U)NegativeNormalNEG [facility] HospitalComment on above:Performed By: #### UA ####[address] , [facility] Lab Director: David Montez MDLeukocyte esterase Test strip Ql (U)NegativeNormalNEGMercy Caruthers HospitalComsouthwest regional rehabilitation center on above:Performed By: #### UA ####[address] , [facility] Lab Director: David Montez MDNitrite,UrNegativeNormalNEGMercy Caruthers HospitalComment on above: Performed By: #### UA ####[address] [place] [address] Lab Director: VONDA PeckH,Ur6.0Normal 5.0-9.0Kettering HealthComment on above:Performed By: #### UA ####[address] [place] [address] Lab Director: VONDA Peckrotein Ql (U)NegativeNormalNEGKettering Health Comment on above:Performed By: #### UA ####[address] [place] [address] Lab Director: Serafin Peck. Fluker,Ur1.131Zcat9.010-1.020Kettering HealthComment on above:Performed By: #### UA ####[address] [place] [address] Lab Director: David Montez MDUrobilinogen,UrNormalNormal 0.0-1.0Kettering HealthComment on above:Performed By: #### UA ####[address] [place] [address] Lab Director: AMAURI PeckR ABDOMEN FOR NG/OG/NE TUBE PLACEMENTon [id number] ABDOMEN FOR NG/OG/NE TUBE PLACEMENTNormalKettering HealthEndo gastric tube tip projects over the gastric body. [facility] CONSOLIDATEDEXAMINATION: ONE SUPINE XRAY VIEW(S) OF THE ABDOMEN 08/18/2024 9:38 pm COMPARISON: July 15, 2024 HISTORY: ORDERING SYSTEM PROVIDED HISTORY: Post NG placed TECHNOLOGIST PROVIDED HISTORY: Post NG placed Portable?->Yes FINDINGS: Endo gastric tube tip projects over the gastric body. There is no dilated small or large bowel in the imaged portions of the abdomen. [facility] Adonay Gee MD - 08/18/2024 EXAMINATION: ONE SUPINE XRAY VIEW(S) OF THE ABDOMEN 08/18/2024 9:38 pm COMPARISON: July 15, 2024 HISTORY: ORDERING SYSTEM PROVIDED HISTORY: Post NG placed TECHNOLOGIST PROVIDED HISTORY: Post NG placed Portable?->Yes FINDINGS: Endo gastric tube tip projects over the gastric body. There is no dilated small or large bowel in the imaged portions of the abdomen. IMPRESSION: Endo gastric tube tip projects over the gastric body. [facility] InsurityMartinsville Memorial HospitalRadiology Study observation (narrative)[facility] [employer] ABDOMEN FOR NG/OG/NE TUBE PLACEMENTOrdered By: Adonay Gonzalez on [id number] [facility] [place] [employer] Work Phone: Ambulatory Visit Summaryon [id number] Visit SummaryAmbulatory Visit Summary AMOL TALYOR :1955 Visit Date:07/21/2024 Ambulatory Visit Instructions Your Care Team Attending Physician - ELSIE CASTANON PA-C Primary Care Physician - CARSON DIOR MD This Is Your Medications List acetaminophen albuterol (albuterol 90 mcg/inh inhalation powder) benzonatate (benzonatate 100 mg Cap) cholecalciferol (Vitamin D 1000 intl units (25 mcg) Tab) ciprofloxacin (ciprofloxacin 500 mg Tab) cyanocobalamin (Vitamin B-12 1000 mcg oral tablet) diazepam finasteride (finasteride 5 mg Tab) hydrOXYzine (hydrOXYzine hydrochloride 25 mg Tab) hydrocortisone topical (hydrocortisone Top 2.5% Crm) lacosamide (lacosamide 150 mg oral tablet) lamotrigine (lamotrigine 200 mg Tab) lamotrigine (lamotrigine 200 mg Tab) latanoprost ophthalmic (latanoprost 0.005% ophthalmic emulsion) levetiracetam (levETIRAcetam 750 mg oral tablet, dispersible) levetiracetam (levetiracetam 1000 mg oral tablet) linaclotide (Linzess 145 mcg oral capsule) lorazepam (LORazepam 0.5 mg Tab) magnesium oxide (magnesium oxide 400 mg Tab) meclizine (meclizine 25 mg Tab) melatonin (melatonin 3 mg Tab) metronidazole (MetroNIDAZOLE 500 mg Tab) olopatadine ophthalmic (olopatadine Opth 0.2% Socorro) ondansetron (ondansetron 4 mg Tab) pantoprazole (Pantoprazole [address] Tab) polyethylene glycol 3350 (MiraLax) primidone (primidone 250 mg Tab) primidone (primidone 250 mg Tab) senna (senna 8.6 mg Tab) tamsulosin (tamsulosin 0.4 mg Cap) Procedures Performed Exploratory laparotomy (06/14/2021), Hydrocelectomy (10/21/2015), Left shoulder (1990), Colonoscopy, Small bowel resection, Vagus nerve stimulator. Discharge Vitals Temperature (Temporal Artery) 36.7 ???C Respiratory Rate 16 Blood Pressure 116/72 Height 160 cm Height 63 in What to do next Scheduled Follow-Up Appointments Sunday2025 9:40 AM EDT With: ELSIE CASTANON PA-C Where: [facility] [address] [address]- Medications What How Much When Instructions Unchanged acetaminophen 650 Milligram By Mouth Every 4 hours as needed for as needed for pain Unchanged albuterol (albuterol 90 mcg/ inh inhalation powder) 2 Inhalation Inhalation Every 4 hours Unchanged benzonatate (benzonatate 100 mg Cap) 1 Capsules By Mouth 3 times a day Unchanged cholecalciferol (Vitamin D 1000 intl units (25 mcg) Tab) 1 Tablets By Mouth Every day Unchanged ciprofloxacin (ciprofloxacin 500 mg Tab) 1 Tablets By Mouth Every 12 hours Unchanged cyanocobalamin (Vitamin B-12 1000 mcg oral tablet) 1 Tablets By Mouth Every day Unchanged diazepam 12.5-20mg kit By rectum Once PRN for seizure activity >15 minutes Unchanged finasteride (finasteride 5 mg Tab) 1 Tablets By Mouth At bedtime Unchanged hydrocortisone topical (hydrocortisone Top 2.5% Crm) daily Topical 2 times a day Unchanged hydrOXYzine (hydrOXYzine hydrochloride 25 mg Tab) 1 Tablets By Mouth Every 12 hours as needed for as needed for itching Unchanged lacosamide (lacosamide 150 mg oral tablet) 1 Tablets By Mouth 2 times a day Unchanged lamotrigine (lamotrigine 200 mg Tab) 3 Tablets By Mouth At bedtime Unchanged lamotrigine (lamotrigine 200 mg Tab) 2 Tablets By Mouth Once a day (in the morning) Unchanged latanoprost ophthalmic (latanoprost 0.005% ophthalmic emulsion) 1 Drops Both eyes At bedtime Unchanged levetiracetam (levetiracetam 1000 mg oral tablet) 2 Tablets By Mouth At bedtime Unchanged levetiracetam (levETIRAcetam 750 mg oral tablet, dispersible) 2 Tablets By Mouth Every day Unchanged linaclotide (Linzess 145 mcg oral capsule) 1 Capsules By Mouth Every day Unchanged lorazepam (LORazepam 0.5 mg Tab) 1 Tablets By Mouth Every 8 hours as needed for Other (see comment) Unchanged magnesium oxide (magnesium oxide 400 mg Tab) 1 Tablets By Mouth Every day Unchanged meclizine (meclizine 25 mg Tab) 1 Tablets By Mouth Every 8 hours as needed for Dizziness FOR DIZZINESS Unchanged melatonin (melatonin 3 mg Tab) 1 Tablets By Mouth Once a day (at bedtime) as needed for for insomnia Unchanged metronidazole (MetroNIDAZOLE 500 mg Tab) 1 Tablets By Mouth 3 times a day Unchanged olopatadine ophthalmic (olopatadine Opth 0.2% Socorro) 1 Drops Ophthalmic Every day Unchanged ondansetron (ondansetron 4 mg Tab) 1 Tablets By Mouth Every 6 hours as needed for Nausea/Vomiting Unchanged pantoprazole (Pantoprazole [address] Tab) 40 Milligram By Mouth Every day Unchanged polyethylene glycol 3350 (MiraLax) 17 Gram By Mouth Every day Unchanged primidone (primidone 250 mg Tab) 1 Tablets By Mouth Once a day (in the morning) Unchanged primidone (primidone 250 mg Tab) 1.5 Tablets By Mouth Once a day (at bedtime) Unchanged senna (senna 8.6 mg Tab) 1 Tablets By Mouth 2 times a day Unchanged tamsulosin (tamsulosin 0.4 mg Cap) 1 Capsules By Mouth 2 times a day Allergies Nuts (Unknow (more content not included)...[facility] Urology Office/Clinic Noteon [id number] Office/Clinic NoteUrology Office/Clinic Note Chief Complaint 1 year follow up with PSA HPI Staff 1 year with PSA. Dx: BPH with urinary obstruction and bowel obstruction. Previous PSA done 03/21/23 - 0.30 Current PSA done 07/18/24- 0.49 Tamsulosin BID and Finasteride 5mg qd. Not sexually active. Denies hematuria, denies dysuria. Has some abdominal pain, but from GI issues. Denies flank pain Pt unable to leave urine sample. Review of Systems PHQ Score Initial Depression Screen Score: 0 SCORE No fever, chills, malaise, myalgia. No dysuria, pain w/ ejaculation, pain w/ BM. No blood in urine, ejaculate, or stool. No change in urgency/frequency, straining, stream changes. No discharge, odor, or change in color of urine. No perineal pain/pressure, scrotal pain, or suprapubic pain. Physical Exam Vitals & Measurements T: 36.7 ???C(Temporal Artery) RR: 16 BP: 116/72 HT: 160 cm HT: 63 in General: nontoxic, NAD Assessment/Plan CT 07/14/24 - partially calcified subcapsular collection seen along L kidney 4.3x1.4cm, similar/slightly decreased to prior. Additional peripherally calcified cystic lesion just below this, also stable. KUB 07/16/24 no stones identified. (CT 02/07/24 chronic L gina-renal subcapsular fluid collection w peripheral calcifications unchanged from the previous exam. No further evaluation recommended) Renal fx 07/16/24 BUN 11 [employer] 0.8 GFR >90 Recently admitted at [facility] UTI. Cx showed >100k E Coli. Staff says this is not a recurrent problem. 1. BPH with urinary obstruction (N40.1: Benign prostatic hyperplasia with lower urinary tract symptoms) Pt is taking tamsulosin BID and finasteride and is mostly satisfiedwith overall symptom control. Pt is experiencing noside effects. Staff reports most of the time he makes it to the toilet without issue. Occasionally will leak a small amount (doesn't have to wear a pad/depends). No trouble getting stream started or emptying completely. Pt is on max medical therapy and does not wish to discuss surgical treatment options for bladder outlet obstruction. Pt prefers to continue current regimen with no changes at this time. Risks/benefits/side effects discussed. Ordered: Body Mass Index (BMI) documented 3008F Complex E&M Add on G2211 Current tobacco non-user 1036F Depression Screening Negative 3352F E&M of Est. Patient Moderate 30-39 Min 62573 Medication list documented in medical record 1159F Most recent diastolic blood pressure <80 mm Hg 3078F Patient screen for fall risk: no falls in last year or 1 fall with no injury in last year 1101F Review of all meds by a prescribing practitioner or clinical pharmacist documented in EHR 1160F Systolic BP <130 mm Hg (Most Recent) 3074F 2. Prostate cancer screening (Z12.5: Encounter for screening for malignant neoplasm of prostate) PSA 04/13/21 - 0.60 03/21/23 - 0.30 07/18/24 - 0.49 PSA remains low and stable. Will continue to monitor. Ordered: Complex E&M Add on G2211 E&M of Est. Patient Moderate 30-39 Min 80258 Follow-up With When Contact Information GENTRY CONSTANTINO, ELSIE Hearn, KAITLYNN In 1 year [address] [place] [address] Additional Instructions: Patient Education Benign Prostatic Hyperplasia Problem List/Past Medical History Ongoing Acute kidney injury Anemia Anxiety disorder Bowel obstruction BPH with urinary obstruction Cerebral palsy Disorder of male genital organ Diverticulitis Epilepsy Gastroesophageal reflux disease Glaucoma Hernia of abdominal cavity Hyperlipidemia Leukocytosis Major depression, single episode Muscle weakness Nocturia Oropharyngeal dysphagia Osteoarthritis Osteopenia Post-void dribbling Prostate cancer screening Seizure Vitamin D deficiency Historical No qualifying data Procedure/Surgical History Exploratory laparotomy (06/14/2021), Hydrocelectomy (10/21/2015), Left shoulder (1990), Colonoscopy, Small bowel resection, Vagus nerve stimulator. Medications acetaminophen, 650 mg, Oral, q4hr, PRN albuterol 90 mcg/inh inhalation powder, 2 inh, Inhalation, q4hr benzonatate 100 mg Cap, 100 mg= 1 cap(s), Oral, TID ciprofloxacin 500 mg Tab, 500 mg= 1 tab(s), Oral, q12hr diazepam, 12.5-20mg kit, Rectal, Once finasteride 5 mg Tab, 5 mg= 1 tab(s), Oral, Bedtime hydrocortisone Top 2.5% Crm, daily, Topical, BID hydrOXYzine hydrochloride 25 mg Tab, 25 mg= 1 tab(s), Oral, q12hr, PRN lacosamide 150 mg oral tablet, 150 mg= 1 tab(s), Oral, BID lamotrigine 200 mg Tab, 600 mg= 3 tab(s), Oral, Bedtime lamotrigine 200 mg Tab, 400 mg= 2 tab(s), Oral, qAM latanoprost 0.005% ophthalmic emulsion, 1 drop(s), Eye-Both, Bedtime levetiracetam 1000 mg oral tablet, 2000 mg= 2 tab(s), Oral, Bedtime levETIRAcetam 750 mg oral tablet, dispersible, 1500 mg= 2 tab(s), Oral, Daily Linzess 145 mcg oral capsule, 145 mcg= 1 cap(s), Oral, Daily LORazepam 0.5 mg Tab, 0.5 mg= 1 tab(s), Oral, q8hr, PRN magnesium oxide (more content not included)...[facility] Comment on above:Result Comment: Electronically Signed By: ELSIE CASTANON PA-C\Date and Time Signed: 07/21/2513:48 EDTCult,Bloodon [id number],Blood Specimen Description .BLOOD Special Requests 10ML RAC Culture NO GROWTH 5 DAYS Report Status FINAL 07/19/2024NormalKettering HealthComment on above: Performed By: #### BC ####[facility] [place] [address] Lab Director: MERVIN Peck PSA, DIAGNOSTICon [id number] SPECIFIC ANTIGEN DX0.49 ng/mLNINF - 4.00 ng/mL NOMS HealthcareCLINISYNCNOMS HealthcareBasic Metab w/rfx MGon 61-60-8904Khjwr gap [Moles/Vol]10 mmol/LNormal11-18[facility] HospitalComment on above: Performed By: #### BMPX, CDP ####[facility] [place] [address] Lab Director: David Montez MDBUN/CRE Ratio14 Normal11-22Kettering HealthComment on above:Performed By: #### BMPX, CDP ####[facility] [place] [phone] Director: PATTI Peckalcium [Mass/Vol]8.1 mg/dLLow8.6-10.4Kettering HealthComment on above:Performed By: #### BMPX, CDP ####[address] , [place] [address] Lab Director: PATTI Peckhloride [Moles/Vol]111 mmol/TEbas50-909QizpdKettering Health Comment on above:Performed By: #### BMPX, CDP ####[address] , [place] [address] Lab Director: David Montez MDCO2 [Moles/Vol]20 mmol/RUermoo09-71SgfefKettering HealthComment on above: Performed By: #### BMPX, CDP ####[address] [place] [address] Lab Director: PATTI Peckreatinine [Mass/Vol]0.8 mg/dLNormal0.70-1.20Kettering HealthComment on above: Performed By: #### BMPX, CDP ####[address] , [place] [address] Lab Director: David Montez MDGFR/1.73 sq M.predicted among non-blacks MDRD (S/P/Bld) [Vol rate/Area]mL/min/{1.73_m2} Normal>60Kettering HealthComment on above:Result Comment: These results are not intended for use in patients <18 years of age.eGFR resultsare calculated without a race factor using the 2020 CKD-EPI equation.Careful clinical correlation is recommended, particularly when comparing to results calculated using previous equations.The CKD-EPI equation is less accurate in patients with extremes of muscle mass, extra-renal metabolism of creatine, excessive creatine ingestion, or following therapy that affects renal tubular secretion.Performed By: #### BMPX, CDP ####[address] [place] [address] Lab Director: David Montez MDGlucose [Mass/Vol] 82 mg/qSZmjtcg19-55Fdggq Windham HospitalComment on above:Performed By: #### BMPX, CDP ####[address] , [place] [address] Lab Director: VONDA Peckotassium [Moles/Vol]4.1 mmol/L Normal3.7-5.3MLouis Stokes Cleveland VA Medical CenterComment on above:Performed By: #### BMPX, CDP ####[address] , [place] [phone] Director: GIN Peckodium [Moles/Vol]141 mmol/UNzhude662-258CzzvzKettering HealthComment on above:Performed By: #### BMPX, CDP ####[address] [place] [address] Lab Director: David Montez MDUrea nitrogen [Mass/Vol]11 mg/dLNormal8-23[facility] Comment on above:Performed By: #### BMPX, CDP ####[address] , [place] [address] Lab Director: Karishma Peck Metabolic Panel w/ Reflex to MGon [id number] gap [Moles/Vol]10 mmol/L9 - 16 mmol/LBon [facility] HealthCalcium [Mass/Vol]8.1 mg/dLLow8.6 - 10.4 mg/dLBon [facility] HealthChloride [Moles/Vol]111 mmol/LHigh98 - 107 mmol/LBon [facility] HealthCO2 [Moles/Vol]20 mmol/L20 - 31 mmol/LBon [facility] Centerours [facility] HealthCreatinine [Mass/Vol]0.8 mg/dL0.70 - 1.20 mg/dLBon [facility] Centerours [facility] HealthEst, Glom Filt Rate- PINFBon [facility] HospitalComment on above: These results are not intended [...] therapy that affects renal tubular secretion. Glucose [Mass/Vol]82 mg/dL74 - 99 mg/dLBon SecNextworthInterpretation and review of laboratory resultsAbnormalBon [facility]cy HealthPotassium [Moles/Vol]4.1 mmol/L3.7 - 5.3 mmol/LBon [facility]ours [facility] HealthSodium [Moles/Vol] 141 mmol/L136 - 145 mmol/LBon [facility] HealthUrea nitrogen [Mass/Vol]11 mg/dL8 - 23 mg/dLBon Secours [facility] Perry[facility] Hospitaly HealthUrea nitrogen/Creatinine [Mass ratio]14 mg/mg9 - 20[facility] Hospitaly HealthBon Secours [facility] Perrysburg HospitalHarbinger Medical Bellevue HospitalCBC auto differential on 71-11-7058Chkzfxbnx (Bld) [#/Vol]0.03 10*3/uLBon [facility] Inval[facility] Health Basophils/100 WBC (Bld)1 %0 - 2 %[facility] Insurityy HealthEosinophils (Bld) [#/Vol]0.41 10*3/uLBon Secours Mercy HealthEosinophils/100 WBC (Bld)7 %High1 - 4 %[facility] SecNextworthErythrocyte distribution width (RBC) [Ratio]12.9 %11.8 - 14.4 %YOOSE SecNextworthHematocrit (Bld) [Volume fraction]34.7 %Low40.7 - 50.3 %Bon SecNetops Technology Bellevue HospitalHemoglobin (Bld) [Mass/Vol]11.1 g/dLLow13.0 - 17.0 g/dLBon Secours [facility] Health Perrysburg Hospitaly Bellevue HospitalImmature granulocytes (Bld) [#/Vol][facility] AttunityImmature granulocytes/100 WBC (Bld)0 %0Bon [facility] CenterOnyu [facility] HospitalHarbinger Medical [facility] Interpretation and review of laboratory resultsAbnormalBon SecOnyu Mer[facility] Perrysburg HospitalHarbinger Medical Health Lymphocytes/100 WBC (Bld)26 %24 - 43 %[facility] BiotechLymphocytes/100 WBC (Bld)1.57 %[facility] Insurityy HealthMCH (RBC) [Entitic mass]32.4 pg25.2 - 33.5 pgBon [facility] Health CenterHC (RBC) [Mass/Vol]32 g/dL28.4 - 34.8 g/dLBon [facility] County Health CenterV (RBC) [Entitic vol]101.2 fL82.6 - 102.9 fLSentara Rmh Medical CenterMonocytes/100 WBC (Bld)7 %3 - 12 %[facility] Monocytes/100 WBC (Bld)0.44 %[facility] Medical CenterNeutrophils/100 WBC (Bld)59 %36 - 65 %[facility] Medical CenterNucleated RBC/100 WBC (Bld) [Ratio]0 %0.0 per 100 WBCSentara Rmh Medical CenterPlatelet mean volume (Bld) [Entitic vol]9.2 fL8.1 - 13.5 fLSentara Rmh Medical CenterPlatelets (Bld) [#/Vol]164 10*3/uLBon [facility] HospitalRBC (Bld) [#/Vol]3.43 10*6/uLLow4.21 - 5.77 m/uLSentara Rmh Medical CenterSegmented neutrophils/100 WBC (Bld)3.55 %[facility] Medical CenterWBC other (Bld) [#/Vol]6Bon [facility] Indian HospitalCBC with Diffon [id number]. Basophil0.03 k/uLNormal0.00-0.20Kettering HealthComment on above:Performed By: #### BMPX, CDP ####[address] [place], [place] [address] Lab Director: David Montez MD Abs.Imm.Granulocyte<0.15Dtfupq4.00-0.30Kettering HealthComment on above: Performed By: #### BMPX, CDP ####[address] [place], [place] [address] Lab Director: David Montez MDAbs.Neutrophil (Seg)3.55 k/uLNormal1.50-8.10MerGreene Memorial Hospital HospitalComment on above:Performed By: #### BMPX, CDP ####[address] , [place] [address] Lab Director: David Montez MDBasophils/100 WBC (Bld)1 % Normal0-2Mer[facility] Caruthers HospitalComment on above:Performed By: #### BMPX, CDP ####[address] , [place] [phone] Director: David Montez MDEosinophils (Bld) [#/Vol]0.41 10*3/uLNormal 0.00-0.44MerGreene Memorial Hospital HospitalComment on above:Performed By: #### BMPX, CDP ####[address] [place] [phone] Director: MARISOL Peckosinophils/100 WBC (Bld)7 %High1-4MerGreene Memorial Hospital HospitalComment on above:Performed By: #### BMPX, CDP ####[address] [place] [address] Lab Director: David Montez MDErythrocyte distribution width (RBC) [Ratio]12.9 %Normal 11.8-14.4MerGreene Memorial Hospital HospitalComment on above:Performed By: #### BMPX, CDP ####[address] , [place] [phone] Director: David Montez MDHematocrit (Bld) [Volume fraction]34.7 %Low 40.7-50.3Mer[facility] Caruthers HospitalComment on above:Performed By: #### BMPX, CDP ####[address] , [phone] Director: David Montez MDHemoglobin (Bld) [Mass/Vol]11.1 g/dLLow 13.0-17.0Mer[facility] Caruthers HospitalComment on above:Performed By: #### BMPX, CDP ####[address] [place] [phone] Director: Mahsa Peckmature granulocytes/100 WBC (Bld)0 %Normal0 Kettering HealthComment on above:Performed By: #### BMPX, CDP ####[address] [place] [address] [facility] Director: David Montez MDLymphocytes (Bld) [#/Vol]1.57 10*3/uLNormal1.10-3.70 [facility] HealthComment on above:Performed By: #### BMPX, CDP ####[address] , [facility]83 [facility] Director: Luis Peckmphocytes/100 WBC (Bld)26 %Rwezzq80-28YxgaaKettering HealthComment on above:Performed By: #### BMPX, CDP ####[address] [place] [address] Lab Director: DUKE PeckCH (RBC) [Entitic mass]32.4 koPsfioj39.2-33.5[facility] on above:Performed By: #### BMPX, CDP ####[address] [place] [address] Lab Director: FRANCHESCA PeckC (RBC) [Mass/Vol]32.0 g/vYZafusw48.4-34.8K[facility]tering HealthComment on above:Performed By: #### BMPX, CDP ####[address] , [place] [address] Lab Director: DUKE PeckCV (RBC) [Entitic vol]101.2 dYLlogte18.6-102.9Mer[facility] Caruthers HospitalComment on above: Performed By: #### BMPX, CDP ####[address] [place] [address] Lab Director: DUKE Peckonocytes (Bld) [#/Vol]0.44 10*3/uLNormal0.10-1.20[facility] HospitalComment on above: Performed By: #### BMPX, CDP ####[address] [place] [address] Lab Director: DUKE Peckonocytes/100 WBC (Bld)7 %Normal3-12Kettering HealthComment on above:Performed By: #### BMPX, CDP ####[address] , [facility]83 Lab Director: David Montez MDNeutrophil (Seg)59 %Btirwu34-86 [facility] HospitalComment on above:Performed By: #### BMPX, CDP ####[address] [place] [address] Lab Director: David Montez MDNRBC Automated0.0 per 100 WBCNormal0.0Kettering HealthComment on above:Performed By: #### BMPX, CDP ####[address] , [facility]83 Lab Director: Abel Pecktelet mean volume (Bld) [Entitic vol]9.2 fLNormal8.1-13.5Kettering HealthComment on above:Performed By: #### BMPX, CDP ####[address] [place] [address] Lab Director: VONDA Pecklatelets (Bld) [#/Vol]164 10*3/tJWpteaj572-474Guwlu Tiffin HospitalComment on above:Performed By: #### BMPX, CDP ####[facility] [place] , [place] [address] Lab Director: RONNIE Peck ([facility]) [#/Vol]3.43 10*6/uLLow4.21-5.77Mercy Caruthers HospitalComment on above:Performed By: #### BMPX, CDP ####[address] , [place] 17[address] Lab Director: HOME Peck ([facility]) [#/Vol]6.0 10*3/uLNormal3.5-11.3MercNationwide Children's Hospital HospitalComment on above: Performed By: #### BMPX, CDP ####[address] , [place] [address] Lab Director: PATTI Peckult,Urine 19-22-6036Ffjv,UrineResistantMLouis Stokes Cleveland VA Medical CenterComment on above:Performed By: #### URC ####[facility] [address] [place], [place] [address] Lab Director: Chencho Olvera [facility], Urineon 80-91-8438Jgokrxeyfkfsxj and review of laboratory resultsAbnoCumberland HospitalMicroorganism identified Cx Nom (Unsp spec)ESCHERICHIA COLI >100,000 CFU/MLAbnoCumberland HospitalSpecimen Description.URINEBon [facility] Fecal Fat, Randomon 25-72-9325Tsejr Neutral FatNormalNormalNormalKettering HealthComment on above:Performed By: #### AFFRAN ####[facility] [address] [place] [address] Lab Director: Ken Sidhu MD Fecal Split FatNormalNormalNormalPrem[facility] Health [facility] HospitalComment on above:Result Comment: (NOTE)INTERPRETIVE INFORMATION: Fecal Fat QualitativeNeutral fats include the monoglycerides, diglycerides, andtriglycerides while split fats are the free fatty acidsthat are liberated from them. Impaired synthesis orsecretion of pancreatic enzymes or bile may cause anincrease in neutral fats while an increase in split fatssuggests impaired absorption of nutrients.Performed By: [facility] [place], [place] [address]Laboratory Director: Subhash Mcclure MD, PhDCLIA Number: [id number] By: #### AFFRAN ####[place] [address] lab Director: Ken Sidhu MDFecal fat, qualitativeon 55-33-2925Ieo Qualitative Split StoolNoRed River Behavioral Health SystemComment on above:(NOTE) INTERPRETIVE INFORMATION: Fecal Fat Qualitative Neutral fats include the monoglycerides, diglycerides, and triglycerides while split fats are the free fatty acids that are liberated from them. Impaired synthesis or secretion of pancreatic enzymes or bile may cause an increase in neutral fats while an increase in split fats suggests impaired absorption of nutrients. Performed By: [employer] [address] [place] [address] Automobile Body Worker: Subhsah Mcclure MD, PhD CLIA Number: [id number] Fecal Neutral FatNormalInova Mount Vernon HospitalPT CULT,URINEon 23-13-3221Tqqqicpwktkabb and review of laboratory results AbnormalNOMS HealthcareMHPT CULT,URINESpecimen Description .URINENOMS Healthcare MHPT CULT,URINECulture ESCHERICHIA COLI >100,000 CFU/MLAbnormalOREM COMMUNITY [facility] Healthcare MHPT CULT,URINEReport Status FINAL 07/16/2024NOSC HealthcareMHPT CULT,URINE SUSCEPTIBILITY NOMS HealthcareMHPT CULT,URINEOrganism ESCHERICHIA COLINOMS HealthcareMHPT CULT,URINEMethod MICNOMS HealthcareMHPT CULT,URINEAmpicillin >=32 RESISTANT ResistantNOMS HealthcareMHPT CULT,URINECefazolin <=4 SUSCEPTIBLESusceptibleNOSC HealthcareMHPT CULT,URINECefazolin sensitivity results can be used to predict the effectiveness of oral SusceptibleNOMS HealthcareMHPT CULT,URINEcephalosporins (eg. Cephalexin) in uncomplicated Urinary Tract Infections due SusceptibleNOMS HealthcareMHPT CULT,URINEto E. coli, K. pneumoniae, and P. mirabilis SusceptibleNOMS HealthcareMHPT CULT,URINECeftriaxone <=0.25 SUSCEPTIBLE SusceptibleNOMS HealthcareMHPT CULT,URINENegativeSusceptibleNOMS HealthcareMHPT CULT,URINEGentamicin <=1 SUSCEPTIBLESusceptibleNOMS HealthcareMHPT CULT,URINE Levofloxacin <=0.12 SUSCEPTIBLESusceptibleNOMS HealthcareMHPT CULT,URINE Piperacillin/Tazobactam <=4 SUSCEPTIBLESusceptibleNOMS HealthcareMHPT CULT,URINE Tobramycin <=1 SUSCEPTIBLESusceptibleNOMS HealthcareMHPT CULT,URINE Trimethoprim/Sulfa >=320 RESISTANTResistantNOMS HealthcareOriginal Ordering Provider: LOKI BARKER HealthcareBasic Metab w/rfx MGon 95-76-4457Pzcnr gap [Moles/Vol]14 mmol/LNormal9-16Kettering HealthComment on above:Performed By: #### BMPX, CDP ####[address] , [place] [address] Lab Director: David Montez MDBUN/CRE Qrpgf79Vyje3-29RqvmoKettering HealthComment on above:Performed By: #### BMPX, CDP ####[address] [place] [address] Lab Director: PATTI Peckalcium [Mass/Vol]8.5 mg/dLLow 8.6-10.4Kettering HealthComment on above:Performed By: #### BMPX, CDP ####[address] [place] [phone] Director: PATTI Peckhloride [Moles/Vol]109 mmol/ZTxcr18-818ArjrkKettering HealthComment on above:Performed By: #### BMPX, CDP ####[address] , [place] 20[address] Lab Director: PATTI PeckO2 [Moles/Vol]16 mmol/IBnz12-46Paqzw Caruthers HospitalComment on above:Performed By: #### BMPX, CDP ####[address] [place] [address] Lab Director: David Montez MD Creatinine [Mass/Vol]0.9 mg/dLNormal0.70-1.20Kettering HealthComment on above:Performed By: #### BMPX, CDP ####[address] , [facility]83 Lab Director: David Montez MDGFR/1.73 sq M.predicted among non-blacks MDRD (S/P/Bld) [Vol rate/Area]88 mL/min/{1.73_m2}Normal>60Kettering HealthComment on above:Result Comment: These results are not intended for use in patients <18 years of age.eGFR results are calculated without a race factor using the 2020 CKD-EPI equation.Careful clinical correlation is recommended, particularly when comparing to results calculated using previous equations.The CKD-EPI equation is less accurate in patients with extremes of muscle mass, extra-renal metabolism of creatine, excessive creatine ingestion, or following therapy that affects renal tubular secretion.Performed By: #### BMPX, CDP ####[address] [place] [address] Lab Director: David Montez MD Glucose [Mass/Vol]94 mg/hHTrvcxv59-57Rsgba Windham HospitalComment on above: Performed By: #### BMPX, CDP ####[address] , [place] [address] Lab Director: David Montez MDPotassium [Moles/Vol]4.4 mmol/LNormal3.7-5.3MLouis Stokes Cleveland VA Medical CenterComment on above: Performed By: #### BMPX, CDP ####[address] [place] [address] Lab Director: David Montez MDSodium [Moles/Vol]139 mmol/ANkldel515-271OflvdKettering HealthComment on above: Performed By: #### BMPX, CDP ####[facility] [place] [address] Lab Director: David Montez MDUrea nitrogen [Mass/Vol]24 mg/dLHigh8-23Kettering HealthComment on above:Performed By: #### BMPX, CDP ####[facility] [place] , [place] [address] lab Director: David Montez MDNatchaug Hospital Metabolic Panel w/ Reflex to MGon 18-42-4202Ksubq gap [Moles/Vol]14 mmol/L9 - 16 mmol/LBon [facility] HealthCalcium [Mass/Vol]8.5 mg/dLLow8.6 - 10.4 mg/dLBon [facility] Chloride [Moles/Vol]109 mmol/LHigh98 - 107 mmol/LBon [facility] HealthCO2 [Moles/Vol]16 mmol/LLow20 - 31 mmol/LBon [facility] HospitalCreatinine [Mass/Vol]0.9 mg/dL0.70 - 1.20 mg/dLBon [facility]ms[facility] San FranciscoHarbinger Medical HealthEst, Glom Filt Rate 88- PINFBon [facility] HospitalComment on above: These results are not intended [...] therapy that affects renal tubular secretion. Glucose [Mass/Vol]94 mg/dL74 - 99 mg/dLBon [facility] San FranciscoPavlov MediaInterpretation and review of laboratory resultsAbnormalBon Secchristianacare Invaluable HealthPotassium [Moles/Vol]4.4 mmol/L3.7 - 5.3 mmol/LBon SecDeer Park HospitalHarbinger Medical HealthSodium [Moles/Vol] 139 mmol/L136 - 145 mmol/LBon [facility] HospitalUrea nitrogen [Mass/Vol]24 mg/dLHigh8 - 23 mg/dLBon [facility] HospitalUrea nitrogen/Creatinine [Mass ratio]27 mg/mgHigh9 - 20Bon [facility] difficile tox, PCRon 07-15-2024 difficile tox, PCRNEGATIVE: C difficile tcdB nucleic acid not detected by RT-PCR.NormalCDTNEGMercy Windham HospitalComment on above:Performed By: #### OBS, CDIFQ ####[facility] [place] , [place] [id number] Lab Director: David Montez MD#### ROTAG, CDPCR, STLPCR ####[facility] [address] [place], [place] [address] Lab Director: Chencho Olvera [address] , [place] [address] Lab Director: PATTI Peck. difficile toxin Molecularon 07-15-2024 Difficile tox, pcrNEGATIVE: C difficile tcdB nucleic acid not detected by RT-PCR.NEGATIVE: C difficile tcdB nucleic acid not detected by RT-PBon [facility] HospitalSpecimen Description .FECESBon [facility] Indian HospitalCBC auto differentialon [id number] (Bld) [#/Vol]0.04 10*3/uLSentara Rmh Medical Center Basophils/100 WBC (Bld)1 %0 - 2 %[facility] Medical CenterEosinophils (Bld) [#/Vol]0.43 10*3/uLBon [facility] HospitalEosinophils/100 WBC (Bld)5 %High1 - 4 %[facility]mh Medical CenterErythrocyte distribution width (RBC) [Ratio]13 %11.8 - 14.4 %[facility] Medical CenterHematocrit (Bld) [Volume fraction]37.6 %Low40.7 - 50.3 %[facility] Medical CenterHemoglobin (Bld) [Mass/Vol]12.2 g/dLLow13.0 - 17.0 g/dLBon [facility] HospitalImmature granulocytes (Bld) [#/Vol]Bon [facility] HospitalImmature granulocytes/100 WBC (Bld)0 %0[facility] Interpretation and review of laboratory resultsAbnormalBon [facility] Lymphocytes/100 WBC (Bld)22 %Low24 - 43 %[facility]mh Medical CenterLymphocytes/100 WBC (Bld)1.86 %[facility] HospitalH (RBC) [Entitic mass]32.4 pg25.2 - 33.5 pgSentara Martha Jefferson HospitalHC (RBC) [Mass/Vol]32.4 g/dL28.4 - 34.8 g/dLBon SecUniversity Hospitals Parma Medical CenterV (RBC) [Entitic vol]99.7 fL82.6 - 102.9 fLSentara Rmh Medical CenterMonocytes/100 WBC (Bld)9 %3 - 12 %[facility] Monocytes/100 WBC (Bld)0.73 %[facility] Medical CenterNeutrophils/100 WBC (Bld)64 %36 - 65 %[facility] Medical CenterNucleated RBC/100 WBC (Bld) [Ratio]0 %0.0 per 100 WBCSentara Rmh Medical CenterPlatelet mean volume (Bld) [Entitic vol]9 fL8.1 - 13.5 fLSentara Rmh Medical CenterPlatelets (Bld) [#/Vol]205 10*3/uLBon [facility] HospitalRBC (Bld) [#/Vol]3.77 10*6/uLLow4.21 - 5.77 m/uLSentara Rmh Medical CenterSegmented neutrophils/100 WBC (Bld)5.51 %[facility] Medical CenterWBC other (Bld) [#/Vol]8.6Bon SecAscension Columbia Saint Mary's HospitalCBC with Diffon [id number]. Basophil0.04 k/uLNormal0.00-0.20[facility]ham HospitalComment on above:Performed By: #### BMPX, CDP ####[facility] [place] [address] [facility] Director: David Montez MD Abs.Imm.Granulocyte<0.50Znemur2.00-0.30[facility] HospitalComment on above: Performed By: #### BMPX, CDP ####[address] , [place] [address] Lab Director: Jaret Peck.Neutrophil (Seg)5.51 k/uLNormal1.50-8.10MerGreene Memorial Hospital HospitalComment on above:Performed By: #### BMPX, CDP ####[address] , [place] [address] Lab Director: David Montez MDBasophils/100 WBC (Bld)1 % Normal0-2MLouis Stokes Cleveland VA Medical CenterComment on above:Performed By: #### BMPX, CDP ####[address] , [place] [phone] Director: David Montez MDEosinophils (Bld) [#/Vol]0.43 10*3/uLNormal 0.00-0.44[facility] HospitalComment on above:Performed By: #### BMPX, CDP ####[address] , [place] [phone] Director: David Montez MDEosinophils/100 WBC (Bld)5 %High1-4[facility] HospitalComment on above:Performed By: #### BMPX, CDP ####[address] , [place] [address] Lab Director: David Montez MDErythrocyte distribution width (RBC) [Ratio]13.0 %Normal 11.8-14.4[facility] HospitalComment on above:Performed By: #### BMPX, CDP ####[address] , [phone] Director: David Montez MDHematocrit (Bld) [Volume fraction]37.6 %Low 40.7-50.3Msumma healthy Windham HospitalComment on above:Performed By: #### BMPX, CDP ####[address] [place] [phone] Director: David Montez MDHemoglobin (Bld) [Mass/Vol]12.2 g/dLLow 13.0-17.0Kettering HealthComment on above:Performed By: #### BMPX, CDP ####[address] , [place] [phone] Director: Mahsa Peckmature granulocytes/100 WBC (Bld)0 %Normal0 Kettering HealthComment on above:Performed By: #### BMPX, CDP ####[address] , [place] 8[address] Lab Director: David Montez MDLymphocytes (Bld) [#/Vol]1.86 10*3/uLNormal1.10-3.70 [facility] HealthComment on above:Performed By: #### BMPX, CDP ####[address] , [place] 4[address] Lab Director: Luis Peckmphocytes/100 WBC (Bld)22 %Yvt85-96YatyxKettering HealthComment on above:Performed By: #### BMPX, CDP ####[address] , [place] [address] Lab Director: DUKE PeckCH (RBC) [Entitic mass]32.4 ghLjifxj24.2-33.5[facility] on above:Performed By: #### BMPX, CDP ####[address] [place] [address] Lab Director: FRANCHESCA PeckC (RBC) [Mass/Vol]32.4 g/kLYeyehs92.4-34.8Mercy Caruthers HospitalComment on above:Performed By: #### BMPX, CDP ####[address] , [place] [address])[phone] Director: DUKE PeckCV (RBC) [Entitic vol]99.7 cNPfsook04.6-102.9Kettering HealthComment on above: Performed By: #### BMPX, CDP ####[address] , [place] [address] Lab Director: DUKE Peckonocytes (Bld) [#/Vol]0.73 10*3/uLNormal0.10-1.20[facility] HospitalComment on above: Performed By: #### BMPX, CDP ####[address] , [place] [address] Lab Director: DUKE Peckonocytes/100 WBC (Bld)9 %Normal3-12K[facility]tering HealthComment on above:Performed By: #### BMPX, CDP ####[address] , [place] [address] Lab Director: David Motnez MDNeutrophil (Seg)64 %Msanca81-55 [facility] HealthComment on above:Performed By: #### BMPX, CDP ####[address] , [facility]83 Lab Director: David Montez MDNRBC Automated0.0 per 100 WBCNormal0.0[facility] HospitalComment on above:Performed By: #### BMPX, CDP ####[address] , [facility]83 Lab Director: VONDA Pecklatelet mean volume (Bld) [Entitic vol]9.0 fLNormal8.1-13.5[facility] HospitalComment on above:Performed By: #### BMPX, CDP ####[address] [place] [address] Lab Director: Dacia Peck ([facility]) [#/Vol]205 10*3/uCYrbext500-434Bldrg Tiffin HospitalComment on above:Performed By: #### BMPX, CDP ####[address] [place] [address] Lab Director: STEVE PeckBC ([facility]) [#/Vol]3.77 10*6/uLLow4.21-5.77[facility] HospitalComment on above:Performed By: #### BMPX, CDP ####[address] [place] [address] Lab Director: CELINA Peck ([facility]) [#/Vol]8.6 10*3/uLNormal3.5-11.3MLouis Stokes [facility] Center HospitalComment on above: Performed By: #### BMPX, CDP ####[address] , [facility]83 Lab Director: Tova Peckrointestinal Panel, [facility] 79-70-2437Fzsxanpzouobx sp DNA POLO+probe Nom (Unsp spec) NEGATIVE: No Campylobacter spp. (jejuni or coli) DNA DetectedNEGATIVE: No Campylobacter spp. (jejuni or coli) DNA DetecteBon [facility] HospitalE. coli enterotoxigenic eltA+estB genes POLO+probe Ql (Stl)NEGATIVE: No Enterotoxigenic E. coli (ETEC) Heat-labile and heat-stable (LT/ST) DNA DetectedNEGATIVE: No Enterotoxigenic E. coli (ETEC) Heat-labile andBon [facility] HospitalP. shigelloides DNA POLO+probe Ql (Stl)NegativeNEGATIVE: No Plesionomas shigelloides DNA DetectedBon [facility] HospitalSalmonella sp DNA POLO+probe Ql (Unsp spec) NegativeNEGATIVE: No Salmonella spp. DNA DetectedBon Secours Mercy HealthShiga toxin stx gene POLO+probe Nom (Unsp spec)NegativeNEGATIVE: No Shiga toxin- producing gene(s) DetectedBon Secours Memorial Regional Medical Centerigella sp DNA POLO+probe Ql (Unsp spec)NegativeNEGATIVE: No Shigella spp. / EIEC DNA DetectedSentara Rmh Medical CenterSpecimen Description.FECESSentara Rmh Medical CenterV. cholerae+parahaemolyticus rfbL+trkH+tnaA genes POLO+probe Ql (Stl)NEGATIVE: No Vibrio (V. vulnificus, V, parahaemolyticus and V. cholerae) DNA Detected NEGATIVE: No Vibrio (V. vulnificus, V, parahaemolyticus andCommunity [facility]. enterocolitica recN gene POLO+probe Ql (Stl)NegativeNEGATIVE: No Yersinia enterocolitica DNA DetectedMary Washington HospitalStool PCR Batteryon 66-08-6464Ctlhapdemekej sp PCRNEGATIVE: No Campylobacter spp. (jejuni or coli) DNA DetectedNoRegency Hospital Cleveland EastComment on above:Performed By: #### JOSE MIGUEL, CDIFQ ####[address] , [place] 58[address] Lab Director: David Montez MD#### LISSY GRIMES, STLPCR ####[facility] [address] [place] [address] Lab Director: Chencho Olvera [address] , [place] [address] Lab Director: MARISOL Peck coli enterotox PCRNEGATIVE: No Enterotoxigenic E. coli (ETEC) Heat- labile and heat-stable (LT/ST)NormalEEMiami Valley HospitalComment on above: Result Comment: DNA DetectedPerformed By: #### JOSE MIGUEL, CDIFQ ####[address] [place], [place] [address] Lab Director: David Montez MD#### LISSY GRIMES, STLPCR ####[facility] [address] [place] [address] Lab Director: Chencho Olvera[address] [place] [address] Lab Director: Cassidy Peckas sp PCRNegativeNormalPLENEGKettering Health Hamilton on above:Performed By: #### OBS, CDIFQ ####[address] [place] [address] Lab Director: David Montez MD#### ROTAG, CDPCR, STLPCR ####[facility] [address] [place] [address] Lab Director: Chencho Olvera, [address] [place] [address] Lab Director: GIN Peckalmonella sp PCRNegativeNormalSALNEGPremier Health [facility] HospitalComment on above: Performed By: #### OBS, CDIFQ ####[address] [place] [address] Lab Director: David Montez MD#### ROTAG, CDPCR, STLPCR ####[facility] [address] [place] [address] Lab Director: Chencho Olvera, [address] [place] [address] Lab Director: GIN Peckhigatoxin gene PCRNegativeNormalSTXNEGKettering HealthComment on above: Performed By: #### OBS, CDIFQ ####[address] [place] [address] Lab Director: David Montez MD#### ROTAG, CDPCR, STLPCR ####[facility] [address] [place] [address] Lab Director: Chencho Olvera, [address] [place] [address] Lab Director: Love Peck sp PCRNegativeNormalSHINEGKettering HealthComment on above: Performed By: #### OBS, CDIFQ ####[address] [place] [address] Lab Director: David Montez MD#### ROTAG, CDPCR, STLPCR ####[facility] [address]ks[address] [place] [address] Lab Director: Chencho Olvera[address] [place] [address] Lab Director: Emmanuelle Peck sp PCRNEGATIVE: No Vibrio (V. vulnificus, V, parahaemolyticus and V. cholerae) DNANormalVIBNEGKettering HealthComment on above:Result Comment: DetectedPerformed By: #### OBS, CDIFQ ####[address] [place] [address] Lab Director: David Montez MD#### CORNELIO, CDPCR, STLPCR ####[facility] [address] [place] [address] Lab Director: Chencho Olvera[address] [place] [address] Lab Director: Markie Peck gene PCRNegativeNormalYERNEGKettering HealthComment on above: Performed By: #### OBS, CDIFQ ####[address] [place] [address] Lab Director: David Montez MD#### ROTAG, CDPCR, STLPCR ####[facility] [address] [place] [address] Lab Director: Chencho OlveraDelaware County Hospital Lab[address] [place] [address] lab Director: GARCÍA Peck ABDOMEN (KUB) (SINGLE AP VIEW)on [id number] ABDOMEN (KUB) (SINGLE AP VIEW)NormalMerGaylord HospitalXR Abdomen Single viewon 73-67-4583Iaidqav small bowel and colon, favoring sequela ileus versus partial small bowel obstruction as suggested on recent CT. Attention on follow-up. [facility] CONSOLIDATEDEXAMINATION: ONE SUPINE XRAY VIEW(S) OF THE ABDOMEN 07/15/2024 6:27 am COMPARISON: 06/17/2024 HISTORY: ORDERING SYSTEM PROVIDED HISTORY: dilated bowel TECHNOLOGIST PROVIDED HISTORY: dilated bowel FINDINGS: Moderate colonic bowel gas. Some dilated loops of small bowel without convincing disproportionate small bowel dilatation. Spondylosis of the spine. Small bowel loops measure up to 5.8 cm in the left upper quadrant. Colonic distension measures up to approximately 6 cm in the right lower quadrant. [facility] Khushbu Haynes, DO - 07/15/2024 EXAMINATION: ONE SUPINE XRAY VIEW(S) OF THE ABDOMEN 07/15/2024 6:27 am COMPARISON: 06/17/2024 HISTORY: ORDERING SYSTEM PROVIDED HISTORY: dilated bowel TECHNOLOGIST PROVIDED HISTORY: dilated bowel FINDINGS: Moderate colonic bowel gas. Some dilated loops of small bowel without convincing disproportionate small bowel dilatation. Spondylosis of the spine. Small bowel loops measure up to 5.8 cm in the left upper quadrant. Colonic distension measures up to approximately 6 cm in the right lower quadrant. IMPRESSION: Dilated small bowel and colon, favoring sequela ileus versus partial small bowel obstruction as suggested on recent CT. Attention on follow-up. [facility] Document AgilityRadiology Study observation (narrative)[facility] Document AgilityXR Abdomen Single viewOrdered By: Khushbu Hernandez on [id number] [employer] Work Phone: Blood Occult Stool Screen #1on [id number], Stool #[id number] Document AgilityHemoglobin.gastrointestinal spec 1 Ql (Stl) PositiveAbnormalNEGATIVECobre Valley Regional Medical Center Document AgilityInterpretation and review of laboratory resultsAbnormalStafford HospitalNeuroSigmay HealthTime, Stool #[id number] [facility] diff Ag + Toxinon 07-14-2024 diff Ag + ToxinNegativeJeffersonNEGKettering HealthComment on above:Result Comment: No C. difficile antigen and Toxin Detected.Performed By: #### OBS, CDIFQ ####[address] [place] [address] Lab Director: David Montez MD#### CORNELIO, CDPCR, STLPCR ####[facility] Mwwmwrslkrjp[address] [place] [address] Lab Director: Chencho Olvera, [address] [place] [address] Lab Director: David Montez [facility] Edmondmarek Gonzalez.FECESGuernsey Memorial Hospital Comment on above:Performed By: #### OBS, CDIFQ ####[address] [place] [address] Lab Director: David Montez MD#### ROTADara, CDPCR, STLPCR ####[facility] [address]div[address]wohdev[address] [place] [address] Lab Director: Chencho Olvera, [address] [place] [address] Lab Director: David Montez [facility] with Diffon [id number] (Bld) [#/Vol]0.05 10*3/uLBon [facility]de Valley Medical Centerours [facility] Anderson HospitalBasophils/100 WBC (Bld)0 %0 - 2 %Bon [facility] HospitalEosinophils (Bld) [#/Vol]0.03 10*3/uLBon Secours [facility] Health Anderson HospitalEosinophils/100 WBC (Bld)0 %Low 1 - 4 %[facility] Rmh Medical CenterErythrocyte distribution width (RBC) [Ratio]12.8 %11.8 - 14.4 %[facility] Medical CenterHematocrit (Bld) [Volume fraction]46.3 % 40.7 - 50.3 %[facility] Hospitaly HealthHemoglobin (Bld) [Mass/Vol]15.1 g/dL13.0 - 17.0 g/dLBon Secours Mercy Health Perrysburg Hospitaly HealthImmature granulocytes (Bld) [#/Vol]0.04 10*3/uL [facility] HealthImmature granulocytes/100 WBC (Bld)0 %0[facility] Hospitaly HealthInterpretation and review of laboratory resultsAbnormalBon Secours Mercy Health Perrysburg Hospitaly HealthLymphocytes/100 WBC (Bld)5 %Low24 - 43 %[facility] Health Health Lymphocytes/100 WBC (Bld)0.91 %LowBon Secours Wright-Patterson Medical CenterH (RBC) [Entitic mass]32.1 pg25.2 - 33.5 pgBon Secours Wright-Patterson Medical CenterHC (RBC) [Mass/Vol]32.6 g/dL 28.4 - 34.8 g/dLBon Secours Mercy Health Anderson HospitalMCV (RBC) [Entitic vol]98.5 fL82.6 - 102.9 fLBon Secours [facility] Hospitaly HealthMonocytes/100 WBC (Bld)5 %3 - 12 %[facility] Hospitaly HealthMonocytes/100 WBC (Bld)0.84 %[facility] HealthNeutrophils/100 WBC (Bld)90 %High36 - 65 %[facility] Hospitaly HealthNucleated RBC/100 WBC (Bld) [Ratio]0 %0.0 per 100 WBCBon Secours [facility] Health Perrysburg Hospitaly HealthPlatelet mean volume (Bld) [Entitic vol]9.2 fL8.1 - 13.5 fLBon Secours [facility] Health Perrysburg Hospitaly HealthPlatelets (Bld) [#/Vol] 287 10*3/uLBon Secours [facility] Hospitaly HealthRBC (Bld) [#/Vol]4.7 10*6/uL4.21 - 5.77 m/uL [facility] HospitalSegmented neutrophils/100 WBC (Bld)14.99 %HighBon Secours [facility] Health HealthWBC other (Bld) [#/Vol]16.9HighBon Secours [facility] Perrysburg Hospitaly HealthBon Secours [facility] Hospitaly HealthAbs. Basophil0.05 k/uLNormal0.00-0.20[facility] Comment on above:Performed By: #### CP, CDP, LIP ####[address] , [place] [address] Lab Director: MDAbs. LivImm.Granulocyte0.04 k/uLNormal0.00-0.30[facility] Comment on above:Performed By: #### CP, CDP, LIP ####[address] , [place] [address] Lab Director: Jaret Peck.Neutrophil (Seg)14.99 k/uLHigh1.50-8.10[facility] Comment on above:Performed By: #### CP, CDP, LIP ####[address] [place] [address] Lab Director: David Montez MDBasophils/100 WBC (Bld)0 %Normal0-2MLouis Stokes Cleveland VA Medical CenterComment on above:Performed By: #### SUMIT CDP, LIP ####[address] , [place] [address] Lab Director: David Montez MD Eosinophils (Bld) [#/Vol]0.03 10*3/uLNormal0.00-0.44[facility] HealthComment on above:Performed By: #### CP, CDP, LIP ####[address] , [place] [address] Lab Director: David Montez MD Eosinophils/100 WBC (Bld)0 %Low1-4[facility] HealthComment on above: Performed By: #### CP, CDP, LIP ####[address] [place] [id number] Lab Director: David Montez MD Erythrocyte distribution width (RBC) [Ratio]12.8 %Fwrtzz97.8-14.4[facility] HealthComment on above:Performed By: #### CP, CDP, LIP ####[address] [place] [address] Lab Director: David Montez MDHematocrit (Bld) [Volume fraction]46.3 %Joouxw78.7-50.3[facility]ham HospitalComment on above:Performed By: #### CP, CDP, LIP ####[address] , [facility]83 Lab Director: David Montez MDHemoglobin (Bld) [Mass/Vol]15.1 g/oUHnfkno42.0-17.0[facility] HealthComment on above:Performed By: #### CP, CDP, LIP ####[address] , [facility]83 Lab Director: Mahsa Peckmature granulocytes/100 WBC (Bld)0 %Juqvae7LgrxfKettering Health Comment on above:Performed By: #### SUMIT, CDP, LIP ####[address] [place] [address] Lab Director: David Montez MDLymphocytes (Bld) [#/Vol]0.91 10*3/uLLow1.10-3.70[facility] Comment on above:Performed By: #### CP, CDP, LIP ####[address] , [phone] Director: Luis Peckmphocytes/100 WBC (Bld)5 %Yls02-76WouhkKettering HealthComment on above:Performed By: #### CP, CDP, LIP ####[address] [place] [address] Lab Director: DUKE PeckCH (RBC) [Entitic mass]32.1 vhBnivqk41.2-33.5[facility] HealthComment on above: Performed By: #### CP, CDP, LIP ####[address] [place] [address] Lab Director: DUKE PeckCHC (RBC) [Mass/Vol]32.6 g/eRTlqxfg84.4-34.8[facility] HospitalComment on above: Performed By: #### CP, CDP, LIP ####[address] [place] [address] Lab Director: DUKE PeckCV (RBC) [Entitic vol]98.5 xMKuokpi71.6-102.9[facility] HealthComment on above: Performed By: #### CP, CDP, LIP ####[address] , [facility]83 Lab Director: DUKE Peckonocytes (Bld) [#/Vol]0.84 10*3/uLNormal0.10-1.20[facility] HospitalComment on above: Performed By: #### CP, CDP, LIP ####[address] , [facility]83[facility])[phone] Director: David Montez MD Monocytes/100 WBC (Bld)5 %Normal3-12[facility] HealthComment on above: Performed By: #### CP, CDP, LIP ####[address] , [facility]83[facility])[phone] Director: David Montez MD Neutrophil (Seg)90 %Ploi78-07PvwnuKettering HealthComment on above:Performed By: #### CP, CDP, LIP ####[address] , [place] [id number] Lab Director: David Montez MDNRBC Automated0.0 per 100 WBCNormal0.0[facility] HospitalComment on above:Performed By: #### CP, CDP, LIP ####[address] , [place] [address] Lab Director: Maria Luisa Peck mean volume (Bld) [Entitic vol]9.2 fLNormal8.1-13.5[facility] HospitalComment on above:Performed By: #### CP, CDP, LIP ####[address] , [place] [id number] Lab Director: Dacia Peck (Bld) [#/Vol]287 10*3/mMOrhnoq723-984Haqza Tiffin HospitalComment on above:Performed By: #### CP, CDP, LIP ####[address] , [place] 2065[address] Lab Director: David Montez MDRBC (Bld) [#/Vol] 4.70 10*6/uLNormal4.21-5.77MerGreene Memorial Hospital HospitalComment on above:Performed By: #### SUMIT, CDP, LIP ####[address] , [place] 41[address] Lab Director: CELINA Peck (Bld) [#/Vol]16.9 10*3/uLHigh3.5-11.3[facility] HospitalComment on above:Performed By: #### CP, CDP, LIP ####[address] , [place] [address] Lab Director: PATTI Pecktawny 15-51-1116Xejniqq [Mass/Vol] 4.8 g/dL3.5 - 5.2 g/dLBon [facility] HealthAlbumin/Globulin [Mass ratio]1.4 {ratio}1.0 - 2.5Bon [facility] HospitalALP [Catalytic activity/Vol]196 U/LHigh 40 - 129 U/LBon [facility] HospitalALT [Catalytic activity/Vol]19 U/L10 - 50 U/LBon Secours Mercy HealthAnion gap [Moles/Vol]14 mmol/L9 - 16 mmol/LBon [facility] HealthAST [Catalytic activity/Vol]18 U/L10 - 50 U/LBon [facility]ours [facility] Hospitaly HealthBilirubin [Mass/Vol]0.3 mg/dL0.00 - 1.20 mg/dLBon Secours [facility] Hospitaly HealthCalcium [Mass/Vol]9.8 mg/dL8.6 - 10.4 mg/dLBon [facility] Health Chloride [Moles/Vol]101 mmol/L98 - 107 mmol/LBon [facility] HealthCO2 [Moles/Vol]25 mmol/L20 - 31 mmol/LBon [facility] HealthCreatinine [Mass/Vol] 1.3 mg/dLHigh0.70 - 1.20 mg/dLBon Secours [facility] HealthEst, Glom Filt Rate62- PINFBon SecThe University of Toledo Medical CenterComment on above: These results are not intended [...] therapy that affects renal tubular secretion. Glucose [Mass/Vol]111 mg/pJCigv46 - 99 mg/dLBon SecOchsner Medical Center HealthPotassium [Moles/Vol]4.6 mmol/L3.7 - 5.3 mmol/LBon [facility] HealthProtein [Mass/Vol] 8.1 g/dL6.6 - 8.7 g/dLBon [facility]ours [facility] HealthSodium [Moles/Vol]140 mmol/L136 - 145 mmol/LBon [facility] HealthUrea nitrogen [Mass/Vol]29 mg/dLHigh8 - 23 mg/dLBon [facility]ours [facility] HealthUrea nitrogen/Creatinine [Mass ratio]22 mg/mgHigh9 - 20Bon SecOchsner Medical Center HealthCT ABDOMEN PELVIS W IV CONTRASTon [id number] ABDOMEN PELVIS W IV CONTRASTNormalMerSaint Francis Hospital & [facility] Abdomen and Pelvis W contrast Sky . Dilated small bowel loops with air-fluid levels with gradual transition point seen at the patient's anastomosis in the left lower quadrant suggesting partial obstruction. 2. Segmental areas of hyperenhancement and thickening of the distal ileum could relate to underdistention although a form of ileitis is difficult to exclude. 3. Stable partially calcified subcapsular collection seen involving the left kidney MHPN RIS CONSOLIDATEDEXAMINATION: CT OF THE ABDOMEN AND PELVIS WITH CONTRAST 07/14/2024 8:39 am TECHNIQUE: CT of the abdomen and pelvis was performed with the administration of intravenous contrast. Multiplanar reformatted images are provided for review. Automated exposure control, iterative reconstruction, and/or weight based adjustment of the mA/kV was utilized to reduce the radiation dose to as low as reasonably achievable. COMPARISON: None. HISTORY: ORDERING SYSTEM PROVIDED HISTORY: diarrhea TECHNOLOGIST PROVIDED HISTORY: diarrhea Decision Support Exception - unselect if not a suspected or confirmed emergency medical condition->Emergency Medical Condition (MA) FINDINGS: Lower chest: Cardiomegaly. Lower lobe atelectasis. EG junction, stomach and duodenal sweep: Unremarkable Liver: Unremarkable Gallbladder: Unremarkable Biliary tree: Unremarkable Pancreas: Unremarkable for patient's age. Spleen: Unremarkable Kidneys and ureters: Partially calcified sub capsular collection seen along the left kidney measuring 4.3 by 1.4 cm is similar to slightly decreased from prior. Additional peripherally calcified cystic lesion seen just below this is stable. Adrenal glands: Unremarkable Retroperitoneal structures: Unremarkable Small bowel and colon: Dilated small bowel loops with air-fluid levels including distended stomach with more gradual transition distal to patient's anastomosis in the left lower quadrant with distended bowel proximal to the anastomosis are more normal caliber all distal and more decompressed involving the terminal ileum. Findings suggest partial obstruction. Exact transition point is not seen. There is long segment hyperenhancement and thickening of 2 different segments of distal ileum that could relate to underdistention although a form of ileitis is difficult to exclude as there are few nonenlarged right lower quadrant mesenteric lymph nodes. This had a similar appearance on 06/16/2024 exam. Free fluid/air: None Lymph nodes: No enlarged lymph nodes Osseus structures: No destructive lesion Vasculature: No aneurysm Other: None MHPN Andrzej Costa MD - 07/14/2024 EXAMINATION: CT OF THE ABDOMEN AND PELVIS WITH CONTRAST 07/14/2024 8:39 am TECHNIQUE: CT of the abdomen and pelvis was performed with the administration of intravenous contrast. Multiplanar reformatted images are provided for review. Automated exposure control, iterative reconstruction, and/or weight based adjustment of the mA/kV was utilized to reduce the radiation dose to as low as reasonably achievable. COMPARISON: None. HISTORY: ORDERING SYSTEM PROVIDED HISTORY: diarrhea TECHNOLOGIST PROVIDED HISTORY: diarrhea Decision Support Exception - unselect if not a suspected or confirmed emergency medical condition->Emergency Medical Condition (MA) FINDINGS: Lower chest: Cardiomegaly. Lower lobe atelectasis. EG junction, stomach and duodenal sweep: Unremarkable Liver: Unremarkable Gallbladder: Unremarkable Biliary tree: Unremarkable Pancreas: Unremarkable for patient's age. Spleen: Unremarkable Kidneys and ureters: Partially calcified sub capsular collection seen along the left kidney measuring 4.3 by 1.4 cm is similar to slightly decreased from prior. Additional peripherally calcified cystic lesion seen just below this is stable. Adrenal glands: Unremarkable Retroperitoneal structures: Unremarkable Small bowel and colon: Dilated small bowel loops with air-fluid levels including distended stomach with more gradual transition distal to patient's anastomosis in the left lower quadrant with distended bowel proximal to the anastomosis are more normal caliber all distal and more decompressed involving the terminal ileum. Findings suggest partial obstruction. Exact transition point is not seen. There is long segment hyperenhancement and thickening of 2 different segments of distal ileum that could relate to underdistention although a form of ileitis is difficult to exclude as there are few nonenlarged right lower quadrant mesenteric lymph nodes. This had a similar appearance on 06/16/2024 exam. Free fluid/air: None Lymph nodes: No enlarged lymph nodes Osseus structures: No destructive lesion Vasculature: No aneurysm Other: None IMPRESSION: 1. Dilated small bowel loops with air-fluid levels with gradual transition point seen at the patient's anastomosis in the left lower quadrant suggesting partial obstruction. 2. Segmental areas of hyperenhancement and thickening of the distal ileum could relate to underdistention although a form of ileitis is difficult to exclude. 3. Stable partially calcified subcapsular collection seen involving the left kidney [facility] Hiveoo [facility] HospitalRadiology Study observation (narrative)[facility] Hiveoo [facility] Abdomen and Pelvis W contrast IVOrdered By: Andrzej Quiroz on [id number] CenterNextworth Work Phone: Clostridium Difficile Toxin/Antigenon 07-14-2024. difficile glutamate dehydrogenase and toxins A+B IA.rapid Ql (Stl)Negative [facility] CenterComsouthwest regional rehabilitation center on above:No C. difficile antigen and Toxin Detected.Specimen Description.FECESBon Secours [facility] Center Metabolic Profon [id number] [Mass/Vol]4.8 g/dLNormal 3.5-5.2[facility] HospitalComment on above:Performed By: #### CP, CDP, LIP ####[address] [place] [phone] Director: David Montez MDAlbumin/Glob Ratio1.0Hfqzxe4.0-2.5[facility] HealthComment on above:Performed By: #### CP, CDP, LIP ####[address] [place] [address] Lab Director: Jazzy Peckkaline Ikxt447 U/MMcdb07-941BlipmKettering HealthComment on above:Performed By: #### CP, CDP, LIP ####[address] [place] [address] Lab Director: David Montez MDALT [Catalytic activity/Vol]19 U/IQnasdd71-50QvqysKettering HealthComsouthwest regional rehabilitation center on above: Performed By: #### SUMIT, CDP, LIP ####[address] [place] [address] Lab Director: David Montez MDAnion gap [Moles/Vol]14 mmol/LNormal9-16[facility] HealthComment on above:Performed By: #### CP, CDP, LIP ####[address] [place] [address] Lab Director: David Montez MDAST [Catalytic activity/Vol]18 U/XFimljb78-98BcgguKettering HealthComment on above:Performed By: #### CP, CDP, LIP ####[address] , [place] 6[address] Lab Director: David Montez MDBilirubin [Mass/Vol]0.3 mg/dLNormal0.00-1.20[facility] HospitalComment on above: Performed By: #### CP, CDP, LIP ####[address] [place] [address] Lab Director: David Montez MDBUN/CRE Ljldx30Hqng8-57EzxnxKettering HealthComment on above:Performed By: #### CP, CDP, LIP ####[address] , [place] [address] Lab Director: PATTI Peckalcium [Mass/Vol]9.8 mg/dLNormal 8.6-10.4[facility] HealthComment on above:Performed By: #### CP, CDP, LIP ####[address] [place] [phone] Director: PATTI Peckhloride [Moles/Vol]101 mmol/OGcusmi40-303 [facility] HealthComment on above:Performed By: #### CP, CDP, LIP ####[address] [place] [address] Lab Director: David Montez MDCO2 [Moles/Vol]25 mmol/JLbefpx57-38UivyqKettering HealthComment on above:Performed By: #### CP, CDP, LIP ####[address] [place] [address] Lab Director: PATTI Peckreatinine [Mass/Vol]1.3 mg/dLHigh0.70-1.20[facility] [place] on above:Performed By: #### CP, CDP, LIP ####[address] [place] [address] Lab Director: David Montez MDGFR/1.73 sq M.predicted among non-blacks MDRD (S/P/Bld) [Vol rate/Area]62 mL/min/{1.73_m2}Normal>60MerGaylord HospitalComment on above: Result Comment: These results are not intended for use in patients <18 years of age.eGFR resultsare calculated without a race factor using the 2020 CKD-EPI equation.Careful clinical correlation is recommended, particularly when comparing to results calculated using previous equations.The CKD-EPI equation is less accurate in patients with extremes of muscle mass, extra-renal metabolism of creatine, excessive creatine ingestion, or following therapy that affects renal tubular secretion.Performed By: #### MIESHA ARANA, LIP ####[address] [place] [address] Lab Director: David Montez MDGlucose [Mass/Vol]111 mg/zEQbrr73-20Ndzvi [facility]ham HospitalComment on above:Performed By: #### MIESHA ARANA, LIP ####[address] , [place] 67[address] Lab Director: David Montez MD Potassium [Moles/Vol]4.6 mmol/LNormal3.7-5.3MercThe Institute of LivingComment on above:Performed By: #### MIESHA ARANA, LIP ####[address] , [place] 5532483 Lab Director: VONDA Peckrotein [Mass/Vol]8.1 g/dLNormal6.6-8.7[facility] HealthComment on above:Performed By: #### MIESHA ARANA, LIP ####[address] [place] [address] Lab Director: GIN Peckodium [Moles/Vol] 140 mmol/GFrksdb422-428Vukyr Tiffin HospitalComment on above:Performed By: #### SUMIT CDP, LIP ####[address] , [place] 9[address] Lab Director: David Montez MDUrea nitrogen [Mass/Vol]29 mg/dL High8-23[facility] HealthComment on above:Performed By: #### CP, CDP, LIP ####[address] [place] [phone] Director: David Montez MDLactic Acidon 48-87-8112Bszpmel (BldV) [Moles/Vol]1.7 mmol/L0.5 - 2.2 mmol/LBon [facility] Indian HospitalLactate [Moles/Vol]1.7 mmol/LNormal0.5-2.2[facility] HospitalComment on above:Performed By: #### LACTIC ####[address] , [facility]83 Lab Director: David Montez MDLipaseon 96-30-6830Ffrdkv [Catalytic activity/Vol]62 U/LHigh13 - 60 U/LBon [facility] HospitalLipase [Catalytic activity/Vol]62 U/ZNksy38-92WlnhcKettering HealthComment on above:Performed By: #### CP, CDP, LIP ####[address] , [facility]83 Lab Director: David Montez MD Microscopic Urinalysison [id number] LM Ql (Urine sed)3+AbnormalNoneBon [facility] HospitalCasts LM.LPF (Urine sed) [#/Area]5 TO 10 HYALINE/LPFBon [facility] HospitalCharacter (U)Urine Reflexed to CultureAbnormalNOT REQ.Bon [facility] HospitalEpithelial cells LM.HPF (Urine sed) [#/Area]0 TO 2Bon [facility] HospitalInterpretation and review of laboratory resultsAbnormalBon [facility] HospitalMucus Ql (Urine sed)1+AbnormalNoneBon [facility] RBC LM.HPF (Urine sed) [#/Area]0 TO 2Bon [facility] HospitalWBC LM.HPF (Urine sed) [#/Area]20 TO 50Bon [facility] Panel Informationon 47-40-6501Yjugduszbcmock and review of laboratory resultsAbnormal [facility] Bld, Fecal Scrnon 07-14-2024 Occult Blood 1PositiveAbnoCleveland Clinic Avon HospitalComment on above:Performed By: #### OBS, CDIFQ ####[address] [place] [address] Lab Director: David Montez MD#### ROTAG, CDPCR, STLPCR ####[facility] [address] [place] [address] Lab Director: Chencho Olvera[address] [place] [address] Lab Director: GIN Peckpecimen 1 Date [id number] Memorial HospitalComment on above:Performed By: #### OBS, CDIFQ ####[address] , [place] [phone] Director: David Montez MD#### CORNELIO, CDPCR, STLPCR ####[facility] [address] [place] [address] Lab Director: Chencho Olvera, [address] [place] [address] Lab Director: GIN Peckpecimen 1 Zgav7165DsudgvQvacfGuernsey Memorial HospitalComment on above:Performed By: #### OBS, CDIFQ ####[address] [place] [address] Lab Director: David Montez MD#### ROTAG, CDPCR, STLPCR ####[facility] HospitalHarbinger Medical Faixewizwizx[address] [place] [address] Lab Director: Chencho Olvera, [address] [place] [address] Lab Director: David Montez MDRotavirus Ag Detecton 85-53-1257Tubgpdxxn Ag DetectNegative NormalNEGMercy Caruthers HospitalComment on above:Performed By: #### OBS, CDIFQ ####[address] , [place] [phone] Director: David Montez MD#### ROTAG, CDPCR, STLPCR ####[facility] HospitalHarbinger Medical [address]nhqbhsgvv[address] [place] [address] Lab Director: Chencho Olvera, [address] [place] [address] Lab Director: Jermain Peck.FECESNormalMercy Caruthers HospitalComment on above:Performed By: #### OBS, CDIFQ ####[address] [place] [address] Lab Director: David Montez MD#### ROTAG, CDPCR, STLPCR ####[facility] [address] [place], [place] [phone] Director: Chencho Olvera, [address] [place] [address] Lab Director: David Montez MDRotavirus antigen, stoolon 46-90-0577NcvqbxxrvBrriytgnOAPFZHUNFdg [facility].FECESBon [facility] UA w/Reflex Cultureon 18-43-1190Djfjgmrrz, SemiQt,UrNegativeNormalNEGMercy Caruthers HospitalComment on above:Performed By: #### UAX, UMICAO ####[address] [place] [address] Lab Director: Oksana Peck, Urine2+AbnormalNEGMercy Caruthers HospitalComment on above: Performed By: #### UAX, UMICAO ####[address] , [place] [address]83 Lab Director: PATTI Pecklarity (U)ClearNormalCLEARMercy Caruthers HospitalComment on above:Performed By: #### UAX, UMICAO ####[address] , [place] [address] Lab Director: PATTI Peckolor (U)YellowNormalYELMercy Caruthers HospitalComment on above:Performed By: #### UAX, UMICAO ####[address] , [place] [address]3 Lab Director: David Montez MDGlucose Ql (U)NegativeNormalNEGMercy Caruthers HospitalComment on above:Performed By: #### UAX, UMICAO ####[address] [place] [address] Lab Director: David Montez MDKetones Ql (U)TRACEAbnormalNEGMercy Caruthers HospitalComsouthwest regional rehabilitation center on above:Performed By: #### UAX, UMICAO ####[address] , [place] 2688483 Lab Director: David Montez MDLeukocyte esterase Test strip Ql (U)TRACEAbnormalNEGMercy Caruthers HospitalComment on above:Performed By: #### UAX, UMICAO ####[address] , [place] 222[address]83 Lab Director: David Montez MDNitrite,UrPositiveAbnormalNEG Kettering HealthComment on above:Performed By: #### UAX, UMICAO ####[address] , [place] 7[address]83 Lab Director: VONDA Peck,Ur6.0Voqieu8.0-9.0[facility] HealthComment on above:Performed By: #### UAX, UMICAO ####[address] , [place] 5542083 Lab Director: VONDA Peckrotein Ql (U)2+ mg/dLAbnormalNEGKettering HealthComment on above:Performed By: #### UAX, UMICAO ####[address] , [place] 0807483 Lab Director: Serafin Peck. Fluker,Ur1.015Normal 1.010-1.020[facility] HealthComment on above:Performed By: #### UAX, UMSHEAO ####[address] , [place] [phone] Director: David Montez MDUrobilinogen,UrNormalNormal0.0-1.0[facility] HealthComment on above:Performed By: #### UAX, UMICAO ####[address] , [place] 470[address]83 Lab Director: David Montez MDUrinalysis with Reflex to Cultureon [id number] Ql (U) NegativeNEGATIVEBon [facility] HealthClarity (U)ClearClearBon SecThe University of Toledo Medical CenterColor (U)YellowYellowBon SecThe University of Toledo Medical CenterGlucose Test strip (U) [Mass/Vol]NegativeNEGATIVE mg/dLBon SecThe University of Toledo Medical CenterHemoglobin Auto test strip Ql (U)2+AbnormalNEGATIVEBon SecOchsner Medical Center HealthInterpretation and review of laboratory resultsAbnormalBon SecThe University of Toledo Medical CenterKetones (U) [Mass/Vol]TRACE AbnormalNEGATIVE mg/dLBon SecThe University of Toledo Medical CenterLeukocyte esterase Test strip Ql (U)TRACEAbnormalNEGATIVEBon SecThe University of Toledo Medical CenterNitrite Ql (U)PositiveAbnormal NEGATIVEBon [facility] HospitalpH (U)6 [pH]5.0 - 9.0[facility] Protein (U) [Mass/Vol]2+AbnormalNEGATIVE mg/dLBon [facility] HospitalSpecific gravity (U) [Rel density]1.0151.010 - 1.020Bon [facility] HospitalUrobilinogen Qn (U)Normal0.0 - 1.0 EU/dLBon [facility] HospitalBon [facility] Urinalysis,Microon 55-95-5480Afbdnkca5+AbnormalNONEMeHighland Community Hospital HospitalComment on above:Performed By: #### GREGG, ELÍASO ####[address] [place] [address] Lab Director: David Montez MDCasts 5 TO 10NormalUc Healthcy Windham HospitalComment on above:Result Comment: HYALINE Performed By: #### NGUYỄN ESCOBEDO ####[address] , [facility] Lab Director: David Montez MD Epithelial cells LM Ql (Urine sed)0 TO 4Kygqzo6-1Havhk [facility]ham HospitalComment on above:Performed By: #### GREGG, ELÍASO ####[address] [place] [address] Lab Director: DUKE Peckucus Strands1+AbnormalNONEMeBridgeport HospitalComment on above:Performed By: #### GREGG, UMICAO ####[address] [place] [address] Lab Director: David Montez MDOther ObservationsUrine Reflexed to CultureAbnormalNREQKettering HealthComment on above:Performed By: #### GREGG, UMICAO ####[address] , [place] 4697383 Lab Director: David Montez MDUrine RBC's0 TO 2Butzzh7-8Drnvu Windham HospitalComment on above:Performed By: #### UAX, UMICAO ####[address] , [place] [id number] Lab Director: Nisreen Peck WBC's20 TO 92Dueygt0-3RgyrhKettering HealthComment on above:Performed By: #### GREGG, ELÍASO ####[address] [place] [id number] lab Director: Hardik Peck Panel Informationon [id number] HealthcareCult,Bloodon [id number],BloodSpecimen Description .BLOOD Special Requests 10ML RT HAND Culture NO GROWTH 5 DAYS Report Status FINAL 06/21/2024NoalKettering HealthComment on above: Performed By: #### BC ####[address] , [facility]83 [facility] Director: DUKE PeckHPT CULT,BLOODon [id number] CULT,BLOODSpecimen Description .BLOODNOMS HealthcareMHPT CULT,BLOODSpecial Requests 10ML RT HANDNOMS HealthcareMHPT CULT,BLOODCulture NO GROWTH 5 DAYSNOMS HealthcareMHPT CULT,BLOODReport Status FINAL 06/21/2024NOMS HealthcareOriginal Ordering Provider: YANA MYLES [facility] auto differentialon [id number] (Bld) [#/Vol]0.04 10*3/uL [facility] HealthImmature granulocytes (Bld) [#/Vol]0.03 10*3/uLBon Secours Mercy HealthInterpretation and review of laboratory resultsAbnormalBon [facility]ours Mercy HealthLymphocytes/100 WBC (Bld)1.57 %[facility] Monocytes/100 WBC (Bld)0.73 %[facility] HealthNeutrophils/100 WBC (Bld)74 %High36 - 65 %[facility] HealthNucleated RBC/100 WBC (Bld) [Ratio]0 %0.0 per 100 WBCBon [facility]st HospitalSegmented neutrophils/100 WBC (Bld)7.14 %Bon [facility] HospitalWBC other (Bld) [#/Vol]9.7Bon [facility] HospitalBon [facility] HospitalCBC with Diffon [id number]/100 WBC (Bld)0 %Normal 0-2Bon [facility] on above:Performed By: #### CMPX, CDP ####[address] [place] [phone] Director: David Montez MDEosinophils (Bld) [#/Vol]0.22 10*3/uLNormal 0.00-0.44Bon [facility] on above:Performed By: #### CMPX, CDP ####[address] [place] [phone] Director: David Montez MDEosinophils/100 WBC (Bld)2 %Normal1-4Bon [facility] on above:Performed By: #### CMPX, CDP ####[address] [place] [address] Lab Director: David Montez MDErythrocyte distribution width (RBC) [Ratio]12.6 % Xvjrjs75.8-14.4Bon [facility] on above:Performed By: #### CMPX, CDP ####[address] [place] [id number] Lab Director: David Montez MDHematocrit (Bld) [Volume fraction] 36.3 %Low40.7-50.3Bon [facility] on above:Performed By: #### CMPX, CDP ####[address] [place] [id number] Lab Director: David Montez MDHemoglobin (Bld) [Mass/Vol]11.9 g/dLLow13.0-17.0Bon [facility] on above:Performed By: #### CMPX, CDP ####[address] , [place] 03[address] Lab Director: David Montez MDImmature granulocytes/100 WBC (Bld)0 %Ggoeaq5Dhi [facility] on above:Performed By: #### CMPX, CDP ####[address] [place] [address] Lab Director: David Montez MDLymphocytes/100 WBC (Bld)16 %Xnm13-48 Bon [facility] on above:Performed By: #### CMPX, CDP ####[address] [place], [place] [address] Lab Director: DUKE PeckCH (RBC) [Entitic mass]32.4 tdGaywen26.2-33.5Bon [facility] on above:Performed By: #### CMPX, CDP ####[address] , [place] 7[address] Lab Director: FRANCHESCA PeckC (RBC) [Mass/Vol]32.8 g/zQPblgjc50.4-34.8Bon [facility] on above:Performed By: #### CMPX, CDP ####[address] , [place] 0092183 Lab Director: DUKE PeckCV (RBC) [Entitic vol]98.9 jWXwzuyr04.6-102.9Bon [facility] on above:Performed By: #### CMPX, CDP ####[address] , [place] 2644283 Lab Director: DUKE Peckonocytes/100 WBC (Bld)8 %Normal3-12Bon [facility] on above:Performed By: #### CMPX, CDP ####[address] , [place] [phone] Director: Maria Luisa Peck mean volume (Bld) [Entitic vol]9.1 fLNormal8.1-13.5Bon [facility] on above:Performed By: #### CMPX, CDP ####[address] , [place] [phone] Director: Dacia Peck (Bld) [#/Vol]184 10*3/pBNfrzwv531-779Awx [facility] on above:Performed By: #### CMPX, CDP ####[address] , [phone] Director: STEVE PeckBC (Bld) [#/Vol]3.67 10*6/uLLow4.21-5.77Bon [facility] on above:Performed By: #### CMPX, CDP ####[address] , [place] [phone] Director: Jaret Peck. Basophil0.04 k/uLNormal0.00-0.20[facility] on above:Performed By: #### CMPX, CDP ####[address] , [place] [phone] Director: MDAbs. LivImm.Granulocyte0.03 k/uLNormal0.00-0.30Kettering HealthComment on above:Performed By: #### CMPX, CDP ####[address] , [place] [phone] Director: David Montez MD Abs.Neutrophil (Seg)7.14 k/uLNormal1.50-8.10[facility] Health Systemment on above:Performed By: #### CMPX, CDP ####[address] , [place] [phone] Director: David Montez MD Lymphocytes (d) [#/Vol]1.57 10*3/uLNormal1.10-3.70Kettering HealthComment on above:Performed By: #### CMPX, CDP ####[address] , [place] [phone] Director: David Montez MD Monocytes (d) [#/Vol]0.73 10*3/uLNormal0.10-1.20Kettering HealthComment on above:Performed By: #### CMPX, CDP ####[address] , [place] [address])[phone] Director: David Montez MD Neutrophil (Seg)74 %Cntw47-57QqyujKettering HealthComment on above:Performed By: #### CMPX, CDP ####[address] , [place] [phone] Director: David Montez MDNRBC Automated0.0 per 100 WBC Normal0.0[facility] on above:Performed By: #### CMPX, CDP ####[address] , [place] [phone] Director: David Montez MDWBC (d) [#/Vol]9.7 10*3/uLNormal3.5-11.3 [facility] HealthComsouthwest regional rehabilitation center on above:Performed By: #### CMPX, CDP ####[address] [place] [address] Lab Director: PATTI Peckomp Metabolic Pr/rfx MGon [id number] [Mass/Vol]3.8 g/dLNormal3.5-5.2[facility] Caruthers HospitalComment on above:Performed By: #### CMPX, CDP ####[address] [place] [address] Lab Director: David Montez MDAlbumin/Glob Ratio 1.6Fudttc3.0-2.5[facility] HospitalComment on above:Performed By: #### CMPX, CDP ####[address] [place] [address] Lab Director: Jazzy Peckkaline Jeur508 U/EEyrn55-679Rcaps [place] HospitalComment on above:Performed By: #### CMPX, CDP ####[address] [place] [address] Lab Director: David Montez MDALT [Catalytic activity/Vol]16 U/VVnnzdo12-95Xeyjy [place] HospitalComment on above:Performed By: #### CMPX, CDP ####[address] [place] [address] Lab Director: David Montez MDAnion gap [Moles/Vol]12 mmol/LNormal9-16[facility] HospitalComment on above:Performed By: #### CMPX, CDP ####[address] [place] [address] Lab Director: David Montez MDAST [Catalytic activity/Vol]15 U/JQicyoe86-54Jgnep [place] HospitalComment on above: Performed By: #### CMPX, CDP ####[address] [place] [address] Lab Director: David Montez MDBilirubin [Mass/Vol]0.5 mg/dLNormal0.00-1.20[facility] HospitalComment on above: Performed By: #### CMPX, CDP ####[address] 04[address]83 Lab Director: David Montez MDBUN/CRE Ratio25 High9-20Kettering HealthComment on above:Performed By: #### CMPX, CDP ####[address] , [place] [phone] Director: PATTI Peckalcium [Mass/Vol]8.6 mg/dLNormal8.6-10.4Kettering HealthComment on above:Performed By: #### CMPX, CDP ####[address] , [place] 9779283 Lab Director: PATTI Peckhloride [Moles/Vol]110 mmol/TCeqk11-057UanrvKettering Health Comment on above:Performed By: #### CMPX, CDP ####[address] , [place] 9235[address] Lab Director: PATTI PeckO2 [Moles/Vol]22 mmol/IPpchnh23-76JingpKettering HealthComment on above: Performed By: #### CMPX, CDP ####[address] , [place] 2676[address] Lab Director: PATTI Peckreatinine [Mass/Vol]0.8 mg/dLNormal0.70-1.20Kettering HealthComment on above: Performed By: #### CMPX, CDP ####[address] , [place] 6585383 Lab Director: David Montez MDGFR/1.73 sq M.predicted among non-blacks MDRD (S/P/Bld) [Vol rate/Area]mL/min/{1.73_m2} Normal>60Kettering HealthComment on above:Result Comment: These results are not intended for use in patients <18 years of age.eGFR resultsare calculated without a race factor using the 2020 CKD-EPI equation.Careful clinical correlation is recommended, particularly when comparing to results calculated using previous equations.The CKD-EPI equation is less accurate in patients with extremes of muscle mass, extra-renal metabolism of creatine, excessive creatine ingestion, or following therapy that affects renal tubular secretion.Performed By: #### CMPX, CDP ####[address] [place] [address] Lab Director: David Montez MDGlucose [Mass/Vol] 83 mg/vSQlagbq94-90YhjthLouis Stokes Cleveland VA Medical CenterComment on above:Performed By: #### CMPX, CDP ####[address] [place] [address] Lab Director: David Montez MDPotassium [Moles/Vol]3.8 mmol/L Normal3.7-5.3MLouis Stokes Cleveland VA Medical CenterComment on above:Performed By: #### CMPX, CDP ####[address] [place] [phone] Director: David Montez MDProtein [Mass/Vol]6.5 g/dLLow6.6-8.7Kettering HealthComment on above:Performed By: #### CMPX, CDP ####[address] [place] [address] Lab Director: David Montez MDSodium [Moles/Vol]144 mmol/LYojsku867-303JbrwaKettering Health Comment on above:Performed By: #### CMPX, CDP ####[address] [place] [address] Lab Director: David Montez MDUrea nitrogen [Mass/Vol]20 mg/dLNormal8-23Kettering HealthComment on above:Performed By: #### CMPX, CDP ####[address] , [place] 072[address]83 Lab Director: David Montez MD Comprehensive Metabolic Panel w/ Reflex to MGon [id number] [Mass/Vol]3.8 g/dL3.5 - 5.2 g/dLBon Secchristianacare Invaluable HealthAlbumin/Globulin [Mass ratio]1.4 {ratio}1.0 - 2.5[facility] Hospitaly HealthALP [Catalytic activity/Vol]151 U/LHigh 40 - 129 U/LBon Secours [facility] Hospitaly HealthALT [Catalytic activity/Vol]16 U/L10 - 50 U/LBon Secours [facility] Hospitaly AttunityAnion gap [Moles/Vol]12 mmol/L9 - 16 mmol/LBon [facility]ours [facility] Hospitaly HealthAST [Catalytic activity/Vol]15 U/L10 - 50 U/LBon [facility]ours [facility] Perry[facility] HospitalHarbinger Medical HealthBilirubin [Mass/Vol]0.5 mg/dL0.00 - 1.20 mg/dLBon [facility] HealthCalcium [Mass/Vol]8.6 mg/dL8.6 - 10.4 mg/dLBon SecOchsner [facility] Center Attunity Chloride [Moles/Vol]110 mmol/LHigh98 - 107 mmol/LBon SecOchsner Medical Center HealthCO2 [Moles/Vol]22 mmol/L20 - 31 mmol/LBon SecOchsner Medical Center AttunityCreatinine [Mass/Vol] 0.8 mg/dL0.70 - 1.20 mg/dLBon SecDeer Park HospitalPavlov MediaEst, Glom Filt Rate- PINFBon [facility] HospitalComment on above: These results are not intended [...] therapy that affects renal tubular secretion. Glucose [Mass/Vol]83 mg/dL74 - 99 mg/dLBon Document AgilityInterpretation and review of laboratory resultsAbnormalBon Secours Insurityy HealthPotassium [Moles/Vol]3.8 mmol/L3.7 - 5.3 mmol/LBon Secchristianacare Invaluable HealthProtein [Mass/Vol] 6.5 g/dLLow6.6 - 8.7 g/dLBon Secours Invaluable HealthSodium [Moles/Vol]144 mmol/L136 - 145 mmol/LBon SecOchsner Medical Center HealthUrea nitrogen [Mass/Vol]20 mg/dL8 - 23 mg/dLBon Secours [facility] Health Anderson HospitalUrea nitrogen/Creatinine [Mass ratio]25 mg/mgHigh9 - 20[facility] HospitalBon [facility]ours [facility] Anderson HospitalCBC auto differentialon [id number] (Bld) [#/Vol]0.05 10*3/uLBon [facility] Basophils/100 WBC (Bld)0 %0 - 2 %[facility] HealthEosinophils (Bld) [#/Vol]0.19 10*3/uLBon [facility]ours [facility] HealthEosinophils/100 WBC (Bld)2 %1 - 4 % [facility] HospitalErythrocyte distribution width (RBC) [Ratio]12.8 %11.8 - 14.4 %Bon SecThe University of Toledo Medical CenterHematocrit (Bld) [Volume fraction]42.2 %40.7 - 50.3 %Bon SecThe University of Toledo Medical CenterHemoglobin (Bld) [Mass/Vol]13.5 g/dL13.0 - 17.0 g/dLBon SecThe University of Toledo Medical CenterImmature granulocytes (Bld) [#/Vol]0.03 10*3/uLBon Secours [facility] Health Anderson HospitalImmature granulocytes/100 WBC (Bld)0 %0Bon SecOchsner Medical Center HealthInterpretation and review of laboratory resultsAbnormalBon SecThe University of Toledo Medical CenterLymphocytes/100 WBC (Bld)17 %Low24 - 43 %[facility] Lymphocytes/100 WBC (Bld)2.06 %Bon [facility] CenterH (RBC) [Entitic mass] 32.1 pg25.2 - 33.5 pgBon [facility] Health CenterHC (RBC) [Mass/Vol]32 g/dL28.4 - 34.8 g/dLBon SecUniversity Hospitals Parma Medical CenterV (RBC) [Entitic vol]100.2 fL82.6 - 102.9 fL [facility] HealthMonocytes/100 WBC (Bld)9 %3 - 12 %[facility] HealthMonocytes/100 WBC (Bld)1.1 %[facility] HospitalNeutrophils/100 WBC (Bld)72 %High36 - 65 %[facility] Medical CenterNucleated RBC/100 WBC (Bld) [Ratio]0 %0.0 per 100 WBCSentara Rmh Medical CenterPlatelet mean volume (Bld) [Entitic vol]9.1 fL8.1 - 13.5 fLSentara Rmh Medical CenterPlatelets (Bld) [#/Vol] 214 10*3/uLBon [facility] HospitalRBC (Bld) [#/Vol]4.21 10*6/uL4.21 - 5.77 m/uL [facility] Medical CenterSegmented neutrophils/100 WBC (Bld)8.72 %HighSentara Rmh Medical CenterWBC other (Bld) [#/Vol]12.2HighMary Washington HospitalCBC with Diffon [id number]. Basophil0.05 k/uLNormal0.00-0.20[facility] HospitalComment on above:Performed By: #### CDP, CMPX ####[address] [place] [id number] Lab Director: Jaret Peck.Imm.Granulocyte0.03 k/uLNormal0.00-0.30[facility] HospitalComment on above:Performed By: #### CDP, CMPX ####[address] [place], [place] [address] Lab Director: Jaret Peck.Neutrophil (Seg)8.72 k/uLHigh1.50-8.10[facility] HospitalComment on above:Performed By: #### CDP, CMPX ####[address] [place], [place] [address] Lab Director: David Montez MD Basophils/100 WBC (Bld)0 %Normal0-2[facility]uthers HospitalComment on above: Performed By: #### CDP, CMPX ####[address] [place] [id number] Lab Director: David Montez MDEosinophils (Bld) [#/Vol]0.19 10*3/uLNormal0.00-0.44[facility] HospitalComment on above: Performed By: #### CDP, CMPX ####[address] [place] [address] Lab Director: David Montez MDEosinophils/100 WBC (Bld)2 %Normal1-4MerGreene [facility] Hospital HospitalComment on above:Performed By: #### CDP, CMPX ####[address] [place] [address] Lab Director: David Montez MDErythrocyte distribution width (RBC) [Ratio]12.8 %Jbkxwh45.8-14.4[facility] HospitalComment on above: Performed By: #### CDP, CMPX ####[address] [place], [place] [address])[phone] Director: David Montez MDHematocrit (Bld) [Volume fraction]42.2 %Delggq44.7-50.3[facility]uthers HospitalComment on above: Performed By: #### CDP, CMPX ####[address] [place] [id number] Lab Director: David Montez MDHemoglobin (Bld) [Mass/Vol]13.5 g/tMRnwbat58.0-17.0[facility] HospitalComment on above: Performed By: #### CDP, CMPX ####[address] [place] [id number] Lab Director: David Montez MDImmature granulocytes/100 WBC (Bld)0 %Houyar8Ufmai [place] HospitalComment on above: Performed By: #### CDP, CMPX ####[address] [place] [id number] Lab Director: David Montez MDLymphocytes (Bld) [#/Vol]2.06 10*3/uLNormal1.10-3.70[facility] HospitalComment on above: Performed By: #### CDP, CMPX ####[address] [place] [address] [facility] Director: Luis Peckmphocytes/100 WBC (Bld)17 %Ncv56-20Ttjvt [place] HospitalComment on above:Performed By: #### CDP, CMPX ####[address] , [facility]83 [facility] Director: DUKE PeckCH (RBC) [Entitic mass]32.1 pg Qvirzw03.2-33.5MerGreene Memorial Hospital HospitalComment on above:Performed By: #### MIESHA, CMPX ####[address] , [facility]83 [facility] Director: DUKE PeckCHC (RBC) [Mass/Vol]32.0 g/dLNormal 28.4-34.8[facility] HospitalComment on above:Performed By: #### CDP, CMPX ####[address] , [phone] Director: DUKE PeckCV (RBC) [Entitic vol]100.2 fLNormal 82.6-102.9MerGreene Memorial Hospital HospitalComment on above:Performed By: #### CDP, CMPX ####[address] [place] [phone] Director: DUKE Peckonocytes (Bld) [#/Vol]1.10 10*3/uLNormal 0.10-1.20[facility] HospitalComment on above:Performed By: #### CDP, CMPX ####[address] [place] [phone] Director: DUKE Peckonocytes/100 WBC (Bld)9 %Normal3-12[facility] HospitalComment on above:Performed By: #### CDP, CMPX ####[address] [place] [address] Lab Director: David Montez MDNeutrophil (Seg)72 %Gmox02-47Ipngi [place] HospitalComment on above:Performed By: #### CDP, CMPX ####[address] [place] [address] Lab Director: David Montez MDNRBC Automated0.0 per 100 WBCNormal0.0[facility] HospitalComment on above:Performed By: #### CDP, CMPX ####[address] [place] [address] Lab Director: Abel Pecktear mean volume (Bld) [Entitic vol]9.1 fLNormal8.1-13.5MerGreene Memorial Hospital HospitalComment on above:Performed By: #### CDP, CMPX ####[address] [place] [address] Lab Director: VONDA Pecklatelets (Bld) [#/Vol]214 10*3/nPUepudp999-146Dtfcj [place] HospitalComment on above: Performed By: #### CDP, CMPX ####[address] [place] [address] Lab Director: David Montez MDRBC (Bld) [#/Vol] 4.21 10*6/uLNormal4.21-5.77MerGreene Memorial Hospital HospitalComment on above:Performed By: #### CDP, CMPX ####[address] [place] [address] Lab Director: HOME PeckBC (Bld) [#/Vol]12.2 10*3/uL High3.5-11.3[facility] Caruthers HospitalComment on above:Performed By: #### CDP, CMPX ####[address] [place] [phone] Director: PATTI Peckomp Metabolic Pr/rfx MGon 19-02-6182Ihhbzqr [Mass/Vol]3.9 g/dLNormal3.5-5.2[facility] HospitalComment on above:Performed By: #### CDP, CMPX ####[address] [place] [address] Lab Director: David Montez MDAlbumin/Glob Ratio 1.4Ktftii3.0-2.5[facility] HospitalComment on above:Performed By: #### CDP, CMPX ####[address] [place] [address] Lab Director: David Montez MDAlkaline Wmvt591 U/JAqna20-662FoupbKettering HealthComment on above:Performed By: #### CDP, CMPX ####[address] [place] [address] Lab Director: David Montez MDALT [Catalytic activity/Vol]15 U/OZkvxqr21-05Nsyyy [place] HospitalComment on above:Performed By: #### CDP, CMPX ####[address] [place] [address] Lab Director: David Montez MDAnitawny gap [Moles/Vol]7 mmol/LLow9-16[facility] HospitalComment on above:Performed By: #### CDP, CMPX ####[address] , [place] 1532183 Lab Director: David Montez MDAST [Catalytic activity/Vol]20 U/ZBixeyp86-40Qyyqq [place] HospitalComment on above: Performed By: #### CDP, CMPX ####[address] [place] [address] Lab Director: David Montez MDBilirubin [Mass/Vol]0.4 mg/dLNormal0.00-1.20[facility] HospitalComment on above: Performed By: #### CDP, CMPX ####[address] [place] [address] Lab Director: David Montez MDBUN/CRE Ratio24 High9-20[facility] HospitalComment on above:Performed By: #### CDP, CMPX ####[address] [place] [phone] Director: PATTI Peckalcium [Mass/Vol]8.9 mg/dLNormal8.6-10.4[facility] HospitalComment on above:Performed By: #### CDP, CMPX ####[address] [place] [address] Lab Director: PATTI Peckhloride [Moles/Vol]112 mmol/EGfuu46-576DgybbKettering Health Comment on above:Performed By: #### CDP, CMPX ####[address] [place] [address] Lab Director: David Montez MDCO2 [Moles/Vol]22 mmol/IGekepg96-50YwewlKettering HealthComment on above: Performed By: #### CDP, CMPX ####[address] , [place] 545[address]83 Lab Director: David Montez MDCreatinine [Mass/Vol]1.0 mg/dLNormal0.70-1.20[facility] HospitalComment on above: Performed By: #### CDP, CMPX ####[address] [place] [address] Lab Director: David Montez MDGFR/1.73 sq M.predicted among non-blacks MDRD (S/P/Bld) [Vol rate/Area]87 mL/min/{1.73_m2} Normal>60K[facility]tering HealthComment on above:Result Comment: These results are not intended for use in patients <18 years of age.eGFR resultsare calculated without a race factor using the 2020 CKD-EPI equation.Careful clinical correlation is recommended, particularly when comparing to results calculated using previous equations.The CKD-EPI equation is less accurate in patients with extremes of muscle mass, extra-renal metabolism of creatine, excessive creatine ingestion, or following therapy that affects renal tubular secretion.Performed By: #### CDP, CMPX ####[address] [place] [address] Lab Director: David Montez MDGlucose [Mass/Vol] 97 mg/oAOcvfrr69-19RvgcaLouis Stokes Cleveland VA Medical CenterComment on above:Performed By: #### CDP, CMPX ####[address] , [place] 7[address]183 Lab Director: VONDA Peckotassium [Moles/Vol]4.1 mmol/LNormal 3.7-5.3MLouis Stokes Cleveland VA Medical CenterComment on above:Performed By: #### CDP, CMPX ####[address] , [place] [phone] Director: David Montez MDProtein [Mass/Vol]7.0 g/dLNormal6.6-8.7K[facility]tering HealthComment on above:Performed By: #### CDP, CMPX ####[address] [place] [address] Lab Director: David Montez MDSodium [Moles/Vol]141 mmol/LYzehes301-699TirjgKettering Health Comment on above:Performed By: #### CDP, CMPX ####[facility] [place] [address] Lab Director: David Montez MDUrea nitrogen [Mass/Vol]24 mg/dLHigh8-23K[facility]tering HealthComment on above: Performed By: #### CDP, CMPX ####[facility] [place] [address] Lab Director: PATTI Peckomprehensive Metabolic Panel w/ Reflex to MGon 03-05-0436Aygyrxt [Mass/Vol]3.9 g/dL3.5 - 5.2 g/dLBon [facility] HealthAlbumin/Globulin [Mass ratio]1.3 {ratio}1.0 - 2.5[facility] HealthALP [Catalytic activity/Vol]173 U/LHigh40 - 129 U/LBon [facility] HealthALT [Catalytic activity/Vol]15 U/L10 - 50 U/LBon [facility] HospitalAnion gap [Moles/Vol]7 mmol/LLow9 - 16 mmol/LBon [facility] HospitalAST [Catalytic activity/Vol]20 U/L10 - 50 U/LBon [facility] Bilirubin [Mass/Vol]0.4 mg/dL0.00 - 1.20 mg/dLBon [facility] HospitalCalcium [Mass/Vol]8.9 mg/dL8.6 - 10.4 mg/dLBon [facility] HealthChloride [Moles/Vol] 112 mmol/LHigh98 - 107 mmol/LBon [facility] HospitalCO2 [Moles/Vol]22 mmol/L20 - 31 mmol/LBon [facility] HospitalCreatinine [Mass/Vol]1.0 mg/dL0.70 - 1.20 mg/dLBon [facility] HealthEst, Glom Filt Rate87- PINFBon [facility] Comment on above: These results are not [...] therapy that affects renal tubular secretion. Glucose [Mass/Vol]97 mg/dL74 - 99 mg/dLBon [facility] HealthInterpretation and review of laboratory resultsAbnormalBon [facility] HealthPotassium [Moles/Vol]4.1 mmol/L3.7 - 5.3 mmol/LBon [facility] HealthProtein [Mass/Vol]7 g/dL6.6 - 8.7 g/dLBon [facility] HealthSodium [Moles/Vol]141 mmol/L136 - 145 mmol/LBon [facility] HealthUrea nitrogen [Mass/Vol]24 mg/dLHigh8 - 23 mg/dL [facility] HealthUrea nitrogen/Creatinine [Mass ratio]24 mg/mgHigh9 - 20 [facility] HealthSentara [facility] Hospital HealthEKG 12 [place] 66-10-2447Ykhabe Ffem88NAQGrn SecOchsner Medical Center HealthP Lljq83pkkokkrUvpSentara [facility] Hospital HealthP-R Izsbgkrz680 msSentara [facility] Hospital HealthQ-T Zcdnsmkd834 msSentara [facility] Hospital Health QRS Gyfjnjkx46 msSentara [facility] Hospital AttunityQTc Calculation (Bazett)457 msRiverside Health SystemHarbinger Medical HealthR [place]-18degreesCobre Valley [facility] Secours [facility] [facility] HealthT Arwj83wjevcssTyo [facility] HealthVentricular Bltl16MRWEnr [facility] HealthNormal sinus rhythm Minimal voltage criteria for LVH, may be normal variant ( R in aVL ) Borderline ECG ECG not diagnostic for Acute Coronary Syndrome; consider clinical findings When compared with ECG of 16-JUN-2024 16:55, (unconfirmed) Sinus rhythm has replaced Junctional rhythm ST no longer elevated in Inferior leads ST no longer depressed in Lateral leads T wave inversion no longer evident in Inferior leads Nonspecific T wave abnormality, improved in Lateral leads Confirmed by YANA CORNEJO ([id number]) on 06/17/2024 9:32:26 [facility] Yana Cornejo MD - 06/17/2024 Normal sinus rhythm Minimal voltage criteria for LVH, may be normal variant ( R in aVL ) Borderline ECG ECG not diagnostic for Acute Coronary Syndrome; consider clinical findings When compared with ECG of 16-JUN-2024 16:55, (unconfirmed) Sinus rhythm has replaced Junctional rhythm ST no longer elevated in Inferior leads ST no longer depressed in Lateral leads T wave inversion no longer evident in Inferior leads Nonspecific T wave abnormality, improved in Lateral leads Confirmed by YANA CORNEJO ([id number]) on 06/17/2024 9:32:26 AM [facility] HealthBon [facility] HealthQ-T Sheylllw532 msBon Secours Mercy HealthQRS Gnebnoyb19 msBon Secours Mercy HealthQTc Calculation (Bazett)603 msBon Secours Mercy HealthR Ooak5sfjxwzfYwm [facility] HealthT Rzsl94opxzbub [facility] HealthVentricular Qggs637PHMPvw [facility] HealthSinus tachycardia ST elevation consider inferior injury or acute infarct Inferior injury pattern suggests right ventricular involvement, recommend adding leads V3r and V4r to confirm Abnormal ECG When compared with ECG of 16-JUN-2024 16:11, (unconfirmed) T wave inversion now evident in Inferior leads T wave inversion no longer evident in Lateral leads Confirmed by YANA CORNEJO ([id number]) on 06/17/2024 9:28:58 [facility] Y[facility] Corne[facility] MD - 06/17/[address] elevation consider inferior injury or acute infarct Inferior injury pattern suggests right ventricular involvement, recommend adding leads V3r and V4r to confirm Abnormal ECG When compared with ECG of 16-JUN-2024 16:11, (unconfirmed) T wave inversion now evident in Inferior leads T wave inversion no longer evident in Lateral leads Confirmed by YANA CORNEJO ([id number]) on 06/17/2024 9:28:58 AM [facility] HealthBon [facility] Mercy HealthEKG 12 leadon [id number] Lvjj281ZQRKjj [facility]ours [facility] HealthP Prbv44ddpseebLmu [facility] HealthP-R Efmmubpk519 msBon Secours Mercy HealthQ-T Vlmmnqor933 msBon [facility] Health QRS Gslhnerk11 msBon [facility]ours [facility] HealthQTc Calculation (Bazett)441 msBon Secours Mercy HealthR Zqpi3pwzqlntEaq [facility] HealthT Pfro43dgqvpxvXaf [facility] HealthVentricular Jjus662JEYVdt [facility] HospitalSinus tachycardia ST elevation consider inferior injury or acute infarct Inferior injury pattern suggests right ventricular involvement, recommend adding leads V3r and V4r to confirm Abnormal ECG When compared with ECG of 16-JUN-2024 16:05, (unconfirmed) ST less depressed in Lateral leads T wave inversion no longer evident in Anterior leads Confirmed by YANA CORNEJO ([id number]) on 06/17/2024 9:29:31 [facility] Yana Cornejo MD - 06/17/[address] elevation consider inferior injury or acute infarct Inferior injury pattern suggests right ventricular involvement, recommend adding leads V3r and V4r to confirm Abnormal ECG When compared with ECG of 16-JUN-2024 16:05, (unconfirmed) ST less depressed in Lateral leads T wave inversion no longer evident in Anterior leads Confirmed by YANA CORNEJO ([id number]) on 06/17/2024 9:29:31 AM [facility]EN (KUB) (SINGLE AP VIEW)on [id number] ABDOMEN (KUB) (SINGLE AP VIEW)[facility]en Single viewon 45-37-5766Uodymacvrmqohb bowel gas pattern. [facility] CONSOLIDATEDEXAMINATION: ONE SUPINE XRAY VIEW(S) OF THE ABDOMEN 06/17/2024 7:21 am COMPARISON: CT abdomen pelvis 06/16/2024 HISTORY: ORDERING SYSTEM PROVIDED HISTORY: sbo TECHNOLOGIST PROVIDED HISTORY: sbo FINDINGS: Enteric tube projects past the GE junction with tip projecting over the gastric body. No significant small bowel dilatation. Gas is seen throughout the colon and rectum. [facility] Marti Pederson MD - 06/17/2024 EXAMINATION: ONE SUPINE XRAY VIEW(S) OF THE ABDOMEN 06/17/2024 7:21 am COMPARISON: CT abdomen pelvis 06/16/2024 HISTORY: ORDERING SYSTEM PROVIDED HISTORY: sbo TECHNOLOGIST PROVIDED HISTORY: sbo FINDINGS: Enteric tube projects past the GE junction with tip projecting over the gastric body. No significant small bowel dilatation. Gas is seen throughout the colon and rectum. IMPRESSION: Nonobstructive bowel gas pattern. [facility] CenterRadiology Study observation (narrative)[facility] SystemHarbinger Medical [facility] HospitalXR Abdomen Single viewOrdered By: Marti Tolentino on [id number] [facility] Attunity Work Phone: Basic Metabolic Panelon [id number] gap [Moles/Vol]12 mmol/L9 - 16 mmol/LBon [facility] HealthCalcium [Mass/Vol]9.7 mg/dL8.6 - 10.4 mg/dLBon [facility] FranciscoHarbinger Medical Bellevue HospitalChloride [Moles/Vol]103 mmol/L98 - 107 mmol/LBon [facility] Invaluable [facility] HospitalCO2 [Moles/Vol]26 mmol/L20 - 31 mmol/LBon [facility] San FranciscoPavlov MediaCreatinine [Mass/Vol]1.0 mg/dL0.70 - 1.20 mg/dLBon Verde Valley Medical CenterNextworthEst, Glom Filt Rate78- PINFBon [facility] HospitalComment on above: These results are not intended [...] therapy that affects renal tubular secretion. Glucose [Mass/Vol]113 mg/cBHqgx00 - 99 mg/dLBon [facility] Invaluable [facility] HospitalPotassium [Moles/Vol]4 mmol/L3.7 - 5.3 mmol/LBon [facility] HospitalSodium [Moles/Vol]141 mmol/L136 - 145 mmol/LBon [facility] HospitalUrea nitrogen [Mass/Vol]25 mg/dL High8 - 23 mg/dLBon [facility] AttunityUrea nitrogen/Creatinine [Mass ratio]25 mg/mgHigh9 - 20Bon [facility] HospitalBasic Metabolic Profon 68-32-2565Gnpjx gap [Moles/Vol]12 mmol/LNormal9-16K[facility]tering HealthComment on above: Performed By: #### LIP, BMP, CDP, LIVP ####[facility] [address] , [facility] Director: David Montez MD BUN/CRE Qugay03Fdiw4-56ZngtbKettering HealthComment on above:Performed By: #### LIP, BMP, CDP, LIVP ####[address] , [facility] Lab Director: PATTI Peckalcium [Mass/Vol] 9.7 mg/dLNormal8.6-10.4K[facility]tering HealthComment on above:Performed By: #### LIP, BMP, CDP, LIVP ####[address] , [place] [address] Lab Director: David Montez MDChloride [Moles/Vol]103 mmol/FHcwyyw52-895Gylyh Tiffin HospitalComment on above:Performed By: #### LIP, BMP, CDP, LIVP ####[address] , [facility] Lab Director: David Montez MDCO2 [Moles/Vol]26 mmol/JPkfchz99-53ZuwkhKettering HealthComment on above:Performed By: #### LIP, BMP, CDP, LIVP ####[address] , [facility] Lab Director: PATTI Peckreatinine [Mass/Vol]1.0 mg/dLNormal0.70-1.20K[facility]tering HealthComment on above: Performed By: #### LIP, BMP, CDP, LIVP ####[address] , [place] [id number] Lab Director: David Montez MD GFR/1.73 sq M.predicted among non-blacks MDRD (S/P/Bld) [Vol rate/Area]78 mL/min/{1.73_m2}Normal>60K[facility]tering HealthComment on above:Result Comment: These results are not intended for use in patients <18 years of age.eGFR results are calculated without a race factor using the 2020 CKD-EPI equation.Careful clinical correlation is recommended, particularly when comparing to results calculated using previous equations.The CKD-EPI equation is less accurate in patients with extremes of muscle mass, extra-renal metabolism of creatine, excessive creatine ingestion, or following therapy that affects renal tubular secretion.Performed By: #### LIP, BMP, CDP, LIVP ####[address] , [facility] Lab Director: David Montez MDGlucose [Mass/Vol]113 mg/pOHtpr22-44Vdmap [facility]ham HospitalComment on above:Performed By: #### LIP, BMP, CDP, LIVP ####[address] [place] [id number] Lab Director: VONDA Peckotassium [Moles/Vol]4.0 mmol/LNormal3.7-5.3Mercy Caruthers HospitalComment on above:Performed By: #### LIP, BMP, CDP, LIVP ####[address] , [facility] Lab Director: GIN Peckodium [Moles/Vol]141 mmol/ISgcihk180-061BirnhKettering HealthComment on above:Performed By: #### LIP, BMP, CDP, LIVP ####[address] , [facility] Lab Director: David Montez MDUrea nitrogen [Mass/Vol]25 mg/dLHigh8-23Mercy [facility]ham HospitalComment on above: Performed By: #### LIP, BMP, CDP, LIVP ####[address] [place] [id number] Lab Director: David Montez [facility] – MCALESTERBC with Auto Differentialon [id number] (Bld) [#/Vol]0.06 10*3/uLBon [facility]ours [facility] Anderson HospitalBasophils/100 WBC (Bld)0 %0 - 2 %[facility] Eosinophils (Bld) [#/Vol]0.15 10*3/uLBon [facility] HealthEosinophils/100 WBC (Bld)1 %1 - 4 %[facility] HealthErythrocyte distribution width (RBC) [Ratio]12.6 %11.8 - 14.4 %[facility] HealthHematocrit (Bld) [Volume fraction]46.4 %40.7 - 50.3 %[facility] HealthHemoglobin (Bld) [Mass/Vol] 15.1 g/dL13.0 - 17.0 g/dLBon Secours [facility] Anderson HospitalImmature granulocytes (Bld) [#/Vol]0.04 10*3/uLBon Secours [facility] Anderson HospitalImmature granulocytes/100 WBC (Bld)0 %0[facility] HealthInterpretation and review of laboratory results AbnormalBon [facility]ours [facility] HealthLymphocytes/100 WBC (Bld)10 %Low24 - 43 %[facility] HealthLymphocytes/100 WBC (Bld)1.4 %Bon Secri[facility]-Patterson Medical CenterH (RBC) [Entitic mass]31.8 pg25.2 - 33.5 pgBon Secours Wright-Patterson Medical CenterHC (RBC) [Mass/Vol]32.5 g/dL28.4 - 34.8 g/dLBon Secours [facility] Anderson HospitalMCV (RBC) [Entitic vol]97.7 fL82.6 - 102.9 fLBon Secours [facility]y HealthMonocytes/100 WBC (Bld)5 %3 - 12 %[facility] HealthMonocytes/100 WBC (Bld)0.77 %[facility] HospitalNeutrophils/100 WBC (Bld)84 %High36 - 65 %[facility] Nucleated RBC/100 WBC (Bld) [Ratio]0 %0.0 per 100 WBCCobre Valley Regional Medical Center SecOchs[facility] Health Platelet mean volume (Bld) [Entitic vol]8.9 fL8.1 - 13.5 fLBon Secours [facility] HealthPlatelets (Bld) [#/Vol]271 10*3/uLBon [facility]ours [facility] HealthRBC (Bld) [#/Vol]4.75 10*6/uL4.21 - 5.77 m/uLSentara Rmh Medical CenterSegmented neutrophils/100 WBC (Bld)11.75 %HighSentara Rmh Medical CenterWBC other (Bld) [#/Vol]14.2HighMary Washington HospitalCBC with Diffon [id number]. Basophil0.06 k/uLNormal0.00-0.20[facility] HospitalComment on above:Performed By: #### LIP, BMP, CDP, LIVP ####[address] [place] [address] Lab Director: Jaret Peck.Imm.Granulocyte0.04 k/uLNormal0.00-0.30[facility] HospitalComment on above:Performed By: #### LIP, BMP, CDP, LIVP ####[address] [place] [id number] Lab Director: Jaret Peck.Neutrophil (Seg)11.75 k/uLHigh1.50-8.10[facility] HospitalComment on above:Performed By: #### LIP, BMP, CDP, LIVP ####[address] [place] [address] Lab Director: David Montez MDBasophils/100 WBC (Bld)0 %Normal0-2MLouis Stokes [facility] Medical Center HospitalComment on above: Performed By: #### LIP, BMP, CDP, LIVP ####[address] [place] [address] Lab Director: David Montez MD Eosinophils (Bld) [#/Vol]0.15 10*3/uLNormal0.00-0.44[facility] HospitalComment on above:Performed By: #### LIP, BMP, CDP, LIVP ####[address] [place] [address] Lab Director: David Montez MDEosinophils/100 WBC (Bld)1 %Normal1-4K[facility]tering HealthComment on above:Performed By: #### LIP, BMP, CDP, LIVP ####[address] , [facility] Director: David Montez MDErythrocyte distribution width (RBC) [Ratio]12.6 %Ciwnzg63.8-14.4K[facility]tering HealthComment on above:Performed By: #### LIP, BMP, CDP, LIVP ####[address] , [facility] Director: David Montez MDHematocrit (Bld) [Volume fraction]46.4 %Normal 40.7-50.3MercThe Institute of LivingComment on above:Performed By: #### LIP, BMP, CDP, LIVP ####[address] , [place] [address] [facility] Director: David Montez MDHemoglobin (Bld) [Mass/Vol]15.1 g/zBAxcbei43.0-17.0K[facility]tering HealthComment on above:Performed By: #### LIP, BMP, CDP, LIVP ####[address] , [place] [address] Lab Director: David Montez MDImmature granulocytes/100 WBC (Bld)0 %Byxqnf8NtevyKettering HealthComment on above:Performed By: #### LIP, BMP, CDP, LIVP ####[address] , [facility] Lab Director: David Montez MDLymphocytes (Bld) [#/Vol]1.40 10*3/uLNormal1.10-3.70K[facility] HealthComment on above:Performed By: #### LIP, BMP, CDP, LIVP ####[address] [place] [address] Lab Director: David Montez MDLymphocytes/100 WBC (Bld)10 %Aga07-26Lhoch Tiffin HospitalComment on above:Performed By: #### LIP, BMP, CDP, LIVP ####[address] [place] [address] Lab Director: DUKE PeckCH (RBC) [Entitic mass]31.8 tlNejupt78.2-33.5[facility] HospitalComment on above:Performed By: #### LIP, BMP, CDP, LIVP ####[address] , [place] [address] Lab Director: FRANCHESCA PeckC (RBC) [Mass/Vol]32.5 g/hTDhjujn18.4-34.8[facility] HospitalComment on above: Performed By: #### LIP, BMP, CDP, LIVP ####[address] [place] [address] Lab Director: DUKE PeckCV (RBC) [Entitic vol]97.7 qCMorkqs31.6-102.9[facility] HospitalComment on above: Performed By: #### LIP, BMP, CDP, LIVP ####[address] , [facility]83[facility])[phone] Director: David Montez MD Monocytes (Bld) [#/Vol]0.77 10*3/uLNormal0.10-1.20[facility] HospitalComment on above:Performed By: #### LIP, BMP, CDP, LIVP ####[address] [place] [address] Lab Director: DUKE Peckonocytes/100 WBC (Bld)5 %Normal3-12MerGreene Memorial Hospital HospitalComment on above: Performed By: #### LIP, BMP, CDP, LIVP ####[address] [place] [address] Lab Director: David Montez MD Neutrophil (Seg)84 %Pqhu08-31EcyysKettering HealthComment on above:Performed By: #### LIP, BMP, CDP, LIVP ####[address] [place] [address] Lab Director: BOB PeckBC Automated0.0 per 100 WBCNormal0.0Kettering HealthComment on above:Performed By: #### LIP, BMP, CDP, LIVP ####[address] [place] [address] Lab Director: Maria Luisa Peck mean volume (Bld) [Entitic vol]8.9 fLNormal8.1-13.5K[facility]tering HealthComment on above:Performed By: #### LIP, BMP, CDP, LIVP ####[address] [place] [address] Lab Director: Dacai Peck (Bld) [#/Vol]271 10*3/iFOvugtf916-338Vvvft Tiffin HospitalComment on above:Performed By: #### LIP, BMP, CDP, LIVP ####[address] [place] [address] Lab Director: RONNIE Peck (Bld) [#/Vol]4.75 10*6/uLNormal4.21-5.77[facility] HospitalComment on above:Performed By: #### LIP, BMP, CDP, LIVP ####[address] [place] [address] Lab Director: CELINA Peck (Bld) [#/Vol]14.2 10*3/uLHigh3.5-11.3[facility] HospitalComment on above:Performed By: #### LIP, BMP, CDP, LIVP ####[facility] [place] [address] Lab Director: David Montez, MDCT ABDOMEN PELVIS W IV CONTRASTon [id number] ABDOMEN PELVIS W IV CONTRAST NormalWooster [facility] Hospital Abdomen and Pelvis W contrast Sky . Small bowel obstruction with a transition point along the right paramidline of the anterior abdominal wall. 2. Peripherally calcified left-sided renal lesion measuring 4.1 x 1.6 x 3.5 cm. This may represent sequela of post treatment change. 3. Colonic diverticulosis. MHPN RIS CONSOLIDATEDEXAMINATION: CT OF THE ABDOMEN AND PELVIS WITH CONTRAST 06/16/2024 11:39 am TECHNIQUE: CT of the abdomen and pelvis was performed with the administration of intravenous contrast. Multiplanar reformatted images are provided for review. Automated exposure control, iterative reconstruction, and/or weight based adjustment of the mA/kV was utilized to reduce the radiation dose to as low as reasonably achievable. COMPARISON: 04/19/2024, 02/02/2024. HISTORY: ORDERING SYSTEM PROVIDED HISTORY: Bowel obstruction TECHNOLOGIST PROVIDED HISTORY: Bowel obstruction Decision Support Exception - unselect if not a suspected or confirmed emergency medical condition->Emergency Medical Condition (MA) FINDINGS: Lower Chest: The heart size is normal. Coronary artery vascular calcifications are noted. There is elevation of the left hemidiaphragm with asymmetric atelectasis in the left lung base. There is no pleural effusion. Organs: The liver, gallbladder, adrenal glands, pancreas, and spleen are unremarkable. There is a peripherally calcified left-sided renal lesion measuring 4.1 x 1.6 x 3.5 cm. This may represent sequela of post treatment change. There is no hydronephrosis. GI/Bowel: There is marked distension of the stomach. There is a small bowel obstruction with a transition point along the right paramidline of the anterior abdominal wall, axial image 139. The distal small bowel loops are decompressed. There are several scattered colonic diverticula. The appendix is normal. Pelvis: The bladder is partially distended with urine. The prostate and seminal vesicles are unremarkable. No inguinal or pelvic sidewall adenopathy. Peritoneum/Retroperitoneum: Atherosclerotic plaque is noted in the aorta and its branch vessels. There is no retroperitoneal adenopathy. Bones/Soft Tissues: There are no areas of abnormal soft tissue swelling. Degenerative changes are noted in the spine. Diffuse idiopathic skeletal hyperostosis. There is no fracture. MH Joce Santana MD - 06/16/2024 EXAMINATION: CT OF THE ABDOMEN AND PELVIS WITH CONTRAST 06/16/2024 11:39 am TECHNIQUE: CT of the abdomen and pelvis was performed with the administration of intravenous contrast. Multiplanar reformatted images are provided for review. Automated exposure control, iterative reconstruction, and/or weight based adjustment of the mA/kV was utilized to reduce the radiation dose to as low as reasonably achievable. COMPARISON: 04/19/2024, 02/02/2024. HISTORY: ORDERING SYSTEM PROVIDED HISTORY: Bowel obstruction TECHNOLOGIST PROVIDED HISTORY: Bowel obstruction Decision Support Exception - unselect if not a suspected or confirmed emergency medical condition->Emergency Medical Condition (MA) FINDINGS: Lower Chest: The heart size is normal. Coronary artery vascular calcifications are noted. There is elevation of the left hemidiaphragm with asymmetric atelectasis in the left lung base. There is no pleural effusion. Organs: The liver, gallbladder, adrenal glands, pancreas, and spleen are unremarkable. There is a peripherally calcified left-sided renal lesion measuring 4.1 x 1.6 x 3.5 cm. This may represent sequela of post treatment change. There is no hydronephrosis. GI/Bowel: There is marked distension of the stomach. There is a small bowel obstruction with a transition point along the right paramidline of the anterior abdominal wall, axial image 139. The distal small bowel loops are decompressed. There are several scattered colonic diverticula. The appendix is normal. Pelvis: The bladder is partially distended with urine. The prostate and seminal vesicles are unremarkable. No inguinal or pelvic sidewall adenopathy. Peritoneum/Retroperitoneum: Atherosclerotic plaque is noted in the aorta and its branch vessels. There is no retroperitoneal adenopathy. Bones/Soft Tissues: There are no areas of abnormal soft tissue swelling. Degenerative changes are noted in the spine. Diffuse idiopathic skeletal hyperostosis. There is no fracture. IMPRESSION: 1. Small bowel obstruction with a transition point along the right paramidline of the anterior abdominal wall. 2. Peripherally calcified left-sided renal lesion measuring 4.1 x 1.6 x 3.5 cm. This may represent sequela of post treatment change. 3. Colonic diverticulosis. [facility] CenterRadiology Study observation (narrative)Critical access hospital Abdomen and Pelvis W contrast IVOrdered By: Joce Rowe on [id number] [facility] Work Phone: Hepatic Function Panelon [id number] [Mass/Vol] 4.3 g/dL3.5 - 5.2 g/dLBon [facility] HospitalAlbumin/Globulin [Mass ratio]1.2 {ratio}1.0 - 2.5Bon [facility] HospitalALP [Catalytic activity/Vol]209 U/LHigh 40 - 129 U/LBon [facility] HealthALT [Catalytic activity/Vol]16 U/L10 - 50 U/LBon [facility] HealthAST [Catalytic activity/Vol]19 U/L10 - 50 U/LBon [facility] HospitalBilirubin [Mass/Vol]0.3 mg/dL0.00 - 1.20 mg/dLBon [facility] HospitalBilirubin.direct [Mass/Vol]mg/dL0.00 - 0.30 mg/dLBon [facility] HospitalBilirubin.indirect [Mass/Vol]Can not be calculated0.0 - 1.0 mg/dLBon [facility] HealthProtein [Mass/Vol]8.1 g/dL6.6 - 8.7 g/dLBon [facility] HospitalLactate, Sepsison [id number] (BldV) [Moles/Vol]1.8 mmol/L0.5 - 1.9 mmol/LBon [facility] HospitalBon [facility] HospitalLactic Acid, Sepsis1.8 mmol/LNormal0.5-1.9K[facility]tering HealthComment on above:Performed By: #### LACDS ####[facility] [place] [address] Lab Director: David Montez MDLipaseon [id number] [Catalytic activity/Vol]45 U/L13 - 60 U/LBon Secours [facility]cy Health Anderson HospitalLipase [Catalytic activity/Vol]45 U/VRhqesb96-49MdshyKettering HealthComment on above: Performed By: #### LIP, BMP, CDP, LIVP ####[address] [place] [address] Lab Director: Carl Peck Profileon [id number] [Mass/Vol]4.3 g/dLNormal3.5-5.2MLouis Stokes [facility] Comment on above:Performed By: #### LIP, BMP, CDP, LIVP ####[address] [place] [address] Lab Director: David Montez MDAlbumin/Glob Ratio1.4Ombruz0.0-2.5Kettering HealthComment on above:Performed By: #### LIP, BMP, CDP, LIVP ####[address] [place] [address] Lab Director: Radha Peckline Dkqy079 U/YNgrd50-640EyjhkKettering HealthComment on above:Performed By: #### LIP, BMP, CDP, LIVP ####[address] [place] [address] Lab Director: David Montez MDALT [Catalytic activity/Vol]16 U/HYjsrqp64-15Vdnel Tiffin HospitalComment on above:Performed By: #### LIP, BMP, CDP, LIVP ####[address] [place] [address] Lab Director: David Montez MDAST [Catalytic activity/Vol]19 U/VShdgps50-75UouilKettering HealthComment on above:Performed By: #### LIP, BMP, CDP, LIVP ####[address] [place] [address] Lab Director: David Montez MDBilirubin [Mass/Vol]0.3 mg/dLNormal0.00-1.20K[facility]tering HealthComment on above: Performed By: #### LIP, BMP, CDP, LIVP ####[address] [place] [address] Lab Director: David Montez MD Bilirubin, IndirectCan not be calculatedNormal0.0-1.0[facility] Comment on above:Performed By: #### LIP, BMP, CDP, LIVP ####[address] , [place] [address] Lab Director: David Montez MDBilirubin.indirect [Mass/Vol]mg/dLNormal0.00-0.30[facility] Comment on above:Performed By: #### LIP, BMP, CDP, LIVP ####[address] , [facility] Lab Director: VONDA Peckrotein [Mass/Vol]8.1 g/dLNormal6.6-8.7K[facility]tering HealthComment on above:Performed By: #### LIP, BMP, CDP, LIVP ####[address] [place] [address] Lab Director: DUKE Peckicroscopic Urinalysison [id number] LM Ql (Urine sed)1+AbnormalNoneBon [facility] HospitalEpithelial cells LM.HPF (Urine sed) [#/Area]0 TO 2Bon [facility] Centerours [facility] Anderson HospitalInterpretation and review of laboratory resultsAbnormalBon [facility] HospitalMucus Ql (Urine sed)1+AbnormalNoneBon [facility] RBC LM.HPF (Urine sed) [#/Area]5 TO 10Bon SecThe [facility] Medical CenterWBC LM.HPF (Urine sed) [#/Area]0 TO 2[facility] OconomowocNo Panel Informationon [id number] and review of laboratory resultsAbnormal [facility] HealthBon SecThe University of Toledo Medical CenterTroponinon [id number] I.cardiac High sensitivity method [Mass/Vol]12 ng/L0 - 22 ng/LBon [facility] HospitalComsouthwest regional rehabilitation center on above:High Sensitivity Troponin values cannot be compared with other Troponin methodologies.Bon [facility] HospitalTroponin, High Sens12 ng/L Normal0-22[facility] HealthComsouthwest regional rehabilitation center on above:Result Comment: High Sensitivity Troponin values cannot be compared with other Troponin methodologies.Performed By: #### TROPI ####[facility] , [place] [address] Lab Director: Luis Peck I.cardiac High sensitivity method [Mass/Vol]12 ng/L0 - 22 ng/LBon [facility] HospitalComsouthwest regional rehabilitation center on above:High Sensitivity Troponin values cannot be compared with other Troponin methodologies.[facility] Hospitaloponin, High Sens12 ng/LNormal0-22[facility] HealthComsouthwest regional rehabilitation center on above:Result Comment: High Sensitivity Troponin values cannot be compared with other Troponin methodologies.Performed By: #### TROPI ####[address] [place] [address] Lab Director: David Montez MDUrinalysison [id number] Ql (U)NegativeNEGATIVEBon Secours Mercy HealthClarity (U)ClearClearBon Secours [facility] Perrysburg Hospitaly HealthColor (U)YellowYellowBon Secours Mercy HealthGlucose Test strip (U) [Mass/Vol]NegativeNEGATIVE mg/dLBon Secours [facility] Health Perrysburg Hospitaly HealthHemoglobin Auto test strip Ql (U)1+AbnormalNEGATIVEBon Secours [facility] Health Perrysburg Hospitaly HealthInterpretation and review of laboratory resultsAbnormalBon Secours Mercy HealthKetones (U) [Mass/Vol] NegativeNEGATIVE mg/dLBon Secours Mercy HealthLeukocyte esterase Test strip Ql (U)NegativeNEGATIVEBon [facility]ours Mercy HealthNitrite Ql (U)PositiveAbnormal NEGATIVEBon Secours Mercy HealthpH (U)7 [pH]5.0 - 9.0[facility] Protein (U) [Mass/Vol]1+AbnormalNEGATIVE mg/dLBon [facility] HospitalSpecific gravity (U) [Rel density]1.011.010 - 1.020Bon [facility] HospitalUrobilinogen Qn (U)Normal0.0 - 1.0 EU/dLBon [facility] HospitalBon [facility] Urinalysis, Routineon [id number], SemiQt,UrNegativeNormalNEGMercy Caruthers HospitalComment on above:Performed By: #### ELÍASO, UA ####[address] , [place] [address] Lab Director: Oksana Peck, Urine1+AbnormalNEGMercy Caruthers HospitalComment on above: Performed By: #### NGUYỄN, UA ####[address] , [facility]83 Lab Director: PATTI Pecklarity (U)ClearNormalCLEARMercy Caruthers HospitalComment on above:Performed By: #### NGUYỄN, UA ####[address] [place] [address] Lab Director: PATTI Peckolor (U)YellowNormalYELMercy Caruthers HospitalComment on above:Performed By: #### NGUYỄN, UA ####[address] [place] [address] Lab Director: David Montez MDGlucose Ql (U)NegativeNormalNEGMercy Caruthers HospitalComment on above:Performed By: #### NGUYỄN, UA ####[address] , [facility]83 Lab Director: David Montez MDKetones Ql (U)NegativeNormalNEGMercy Caruthers HospitalComment on above:Performed By: #### NGUYỄN, UA ####[address] [place] [address] Lab Director: David Montez MDLeukocyte esterase Test strip Ql (U)NegativeNormalNEGKettering HealthComment on above:Performed By: #### NGUYỄN, UA ####[address] [place] [address] Lab Director: David Montez MDNitrite,UrPositiveAbnormalNEG [facility]tering HealthComment on above:Performed By: #### NGUYỄN, UA ####[address] [place] [address] Lab Director: VONDA Peck,Ur7.3Dzsfos8.0-9.0Kettering HealthComment on above:Performed By: #### NGUYỄN UA ####[address] [place] [address] Lab Director: VONDA Peckrotein Ql (U)1+ mg/dLAbnormalNEGKettering HealthComment on above:Performed By: #### NGUYỄN UA ####[address] [place] [address] Lab Director: GIN Peckpec. Fluker,Ur1.010Normal 1.010-1.020[facility] HospitalComment on above:Performed By: #### NGUYỄN, UA ####[address] [place] [phone] Director: David Montez MDUrobilinogen,UrNormalNormal0.0-1.0[facility]tering HealthComment on above:Performed By: #### NGUYỄN, UA ####[address] , [place] [address] Lab Director: David Montez MDUrinalysis,Microon [id number]+AbnormalNONEMey Windham HospitalComment on above:Performed By: #### UMICAO, UA ####[address] [place] [address] Lab Director: David Montez MDEpithelial cells LM Ql (Urine sed)0 TO 3Dvbmjh5-2KrckpKettering Health Comment on above:Performed By: #### ELÍASO, UA ####[address] [place] [address] Lab Director: DUKE Peckucus Strands1+AbnormalOur Lady of Mercy Hospital - AndersonComment on above:Performed By: #### ELÍASO, UA ####[address] [place] [address] Lab Director: David Montez MDUrine RBC's5 TO 50Zzjbmw1-4 [facility]tering HealthComment on above:Performed By: #### NGUYỄN, UA ####[address] [place] [address] Lab Director: David Montez MDUrine WBC's0 TO 3Ajostr4-2VrrlfKettering HealthComment on above:Performed By: #### ELÍASO, UA ####[address] [place] [address] Lab Director: AMAURI PeckR ABDOMEN FOR NG/OG/NE TUBE PLACEMENTon [id number] ABDOMEN FOR NG/OG/NE TUBE PLACEMENTNormalKettering HealthNasogastric tube tip is in the stomach. MHPN RIS CONSOLIDATEDEXAMINATION: ONE SUPINE XRAY VIEW(S) OF THE ABDOMEN 06/16/2024 1:56 pm COMPARISON: CT 06/16/2024 HISTORY: ORDERING SYSTEM PROVIDED HISTORY: Confirmation of course of NG/OG/NE tube and location of tip of tube TECHNOLOGIST PROVIDED HISTORY: Confirmation of course of NG/OG/NE tube and location of tip of tube Portable?->Yes FINDINGS: Nasogastric tube tip appears to be in the dilated stomach within the left upper abdomen. There are gas-filled mildly dilated small bowel loops in the visualized mid abdomen. Generator pack in the left chest wall. Anton Ramon MD - 06/16/2024 EXAMINATION: ONE SUPINE XRAY VIEW(S) OF THE ABDOMEN 06/16/2024 1:56 pm COMPARISON: CT 06/16/2024 HISTORY: ORDERING SYSTEM PROVIDED HISTORY: Confirmation of course of NG/OG/NE tube and location of tip of tube TECHNOLOGIST PROVIDED HISTORY: Confirmation of course of NG/OG/NE tube and location of tip of tube Portable?->Yes FINDINGS: Nasogastric tube tip appears to be in the dilated stomach within the left upper abdomen. There are gas-filled mildly dilated small bowel loops in the visualized mid abdomen. Generator pack in the left chest wall. IMPRESSION: Nasogastric tube tip is in the stomach. [facility] Document AgilityRadiology Study observation (narrative)Stafford HospitalNextworthXR ABDOMEN FOR NG/OG/NE TUBE PLACEMENTOrdered By: Anton Dubon on [id number] [employer] Work Phone: XR CHEST (SINGLE VIEW FRONTAL)on [id number] CHEST (SINGLE VIEW FRONTAL)NormalUC Medical Center significant interval change. CAMILLA HEREDIA CONSOLIDATEDEXAMINATION: ONE XRAY VIEW OF THE CHEST 06/16/2024 5:23 pm COMPARISON: 04/19/2024, 02/03/2024 HISTORY: ORDERING SYSTEM PROVIDED HISTORY: coarse lung sounds TECHNOLOGIST PROVIDED HISTORY: coarse lung sounds FINDINGS: The enteric tube courses off the field of view in the upper abdomen.The cardiac and mediastinal contours appear unchanged. Shallow inflation. Streaky opacities in the lung bases again noted. No new airspace disease identified in the interval. No evidence for pneumothorax. Large amount of bowel gas in the left upper quadrant again demonstrated. Left vagal neurostimulator in place. Daquan Nava MD - 06/16/2024 EXAMINATION: ONE XRAY VIEW OF THE CHEST 06/16/2024 5:23 pm COMPARISON: 04/19/2024, 02/03/2024 HISTORY: ORDERING SYSTEM PROVIDED HISTORY: coarse lung sounds TECHNOLOGIST PROVIDED HISTORY: coarse lung sounds FINDINGS: The enteric tube courses off the field of view in the upper abdomen.The cardiac and mediastinal contours appear unchanged. Shallow inflation. Streaky opacities in the lung bases again noted. No new airspace disease identified in the interval. No evidence for pneumothorax. Large amount of bowel gas in the left upper quadrant again demonstrated. Left vagal neurostimulator in place. IMPRESSION: No significant interval change. [facility]mh Medical CenterRadiology Study observation (narrative)[facility] [employer] CHEST (SINGLE VIEW FRONTAL)Ordered By: Daquan Mcdermott on [id number] Health - DanvillePavlov Media Work Phone: CNOVon [phone] Visit ([facility]) AMOL TAYLOR ([id number]) 1955 M Date Time Provider Department 05/22/24 1:00 PM UMA CLARK [facility] During your visit today, we recorded the following information about you: Pulse Respiration Blood pressure 85/minute 18/minute 130/77 Uma Clark MD 05/22/2024 1:35 PM Signed FOLLOW UP OFFICE VISIT REASON FOR VISIT: Follow up HPI: Amol Taylor is a 69 year old male who presents for follow up today for follow up accompanied by a manager care management and patient is in the wheelchair and was admitted since last visit with me at [facility] in [place] with another partial SBO on 04/19/24 requiring NG tube placement for 3-4 days and no further problems since that time with some constipation preceding the episode. Bowel movements are normal. IMPRESSION/DISCUSSION/PLAN: #1.) Recurrent partial SBO over the years per sister which per her he has been in the hospital numerous times and has required NG tube placements each time and many times (up to 6-7 per sister) has had lysis of adhesions and overall clinically he is stable at this time fortunately with no problems with constipation. Recommendations: - Maintain regular stools and ideally prevent constipation with increasing water (which is thickened) to 80 ounces daily and continue linzess, miralax and senokot. - Will attempt to retrieve last colonoscopy done at [facility] by Dr. Christiansen (sister thinks he did last colonoscopy) several years ago. - Continue protonix. #2.) History of OPD currently on thickened liquids with continued intermittent coughing associated with eating in which repeat evaluation and assessment of OPD to be undertaken with MBS. Follow up 6 months. Small bowel follow through 06/21/2023: Contrast passage through dilated loops of small bowel and into the colon in the right upper quadrant by 4 hours. Small bowel follow through 06/13/2023: Findings compatible with ileus pattern. Acute Abd Series 06/13/23: 1. No acute cardiopulmonary process. 2. Scattered gas-filled large/small bowel loops throughout the abdomen and pelvis with several mildly distended gas-filled small bowel loops up to 4 cm. Findings may represent ileus versus partial/intermittent SBO. CTAP 06/11/2023: 1. Small bowel distension without focal transition point identified. There is also a mild amount of liquid stool in the colon. These findings are most suggestive of ileus and diarrheal process versus partial obstructing process. 2. Additional chronic and benign findings, as described. MBS 04/16/2023: IMPRESSION: 1. Abnormal swallow study as noted above with significant stasis in the hypopharynx at the level of the large osteophyte at C5/6 vertebrae. 2. Please correlate with dedicated speech pathology report for additional details and recommendations. ALLERGIES Allergen Reactions Bleach [Other] Clindamycin Rash Penicillins Swelling PAST MEDICAL HISTORY Diagnosis Date Closed fracture of shaft of fibula 11/24/2014 Mental retardation Nontoxic uninodular goiter stable Seizure disorder (HCC) follows with neuro Kelton Hagen PAST SURGICAL HISTORY Procedure Laterality Date INSERT PICC 05/11/2014 LAP SM BOWEL RESECTION W/ANASTOMOSIS, SNGL 10/2013 fascia closed, skin open for SBO MIDLINE INSERTION/CONSULT 05/04/2014 MIDLINE INSERTION/CONSULT 08/08/2016 PAST SURGICAL HISTORY OF 7 months old abd surgery PAST SURGICAL HISTORY OF fracture clavicle PAST SURGICAL HISTORY OF VAGAL NERVE STIMULATOR for seizure Px PAST SURGICAL HISTORY OF 05/05/14 Exploratory laparotomy, small bowel resection and anastomosis , extensive lysis of adhesions FAMILY HISTORY Problem Relation Age of Onset Ischemic Heart Disease Mother other (Thyroid Ca) Mother other (Multiple Myeloma) Mother other (DM) Mother other (htn) Mother other (Lung Ca) Father smoker other (A fib) Brother other (Heart attack) Brother other (HTN) Sister other (DM) Sister other (leukemia) Maternal Uncle other (pancreatic Ca) Maternal Aunt Ischemic Heart Disease Maternal Grandfather Alzheimer's Disease Maternal Grandmother other (HTN) Maternal Grandmother other (dm) Paternal Grandmother Social History Tobacco Use Smoking status: Never Smokeless tobacco: Never Substance Use Topics Alcohol use: No Drug use: No Current Outpatient Medications Medication Sig albuterol HFA (PROVENTIL HFA, VENTOLIN HFA) 90 mcg/actuation inhaler Inhale 2 Puffs as instructed every 4 hours as needed. benzonatate (TESSALON PERLE) 100 mg capsule Take 100 mg by mouth. hydrOXYzine pamoate (VISTARIL) 25 mg capsule Take 25 mg by mouth three times a day as needed. MELATONIN ORAL Take by mouth. carbamide peroxide (EAR DROPS) 6.5 % otic solution 4 Drops once every month. linaclotide (LINZESS) 145 mcg capsule Take 145 mcg by mouth daily at 6 am. Take capsule (more content not included)...NormalTrinity Health System West Campus Lacosamideon [id number] ug/mLNormal1.0-10.0[facility] Comment on above:Result Comment: (NOTE)INTERPRETIVE INFORMATION: Lacosamide, SerumTherapeutic Range: 1.0 - 10.0 ug/mLToxic: >=20.0 ug/mLLacosamide is an anticonvulsant drug indicated for adjunctivetherapy for partial-onset seizures. The therapeutic range is basedon serum, predose (trough) draw collection at steady-stateconcentration. Adverse effects may include dizziness, fatigue,nausea, vomiting, blurred vision, and tremor.Performed By: [employer] [place], [place] [address]Tiijzlckio Director: Subhash Mcclure MD, PhDCLIA Number: [id number] By: #### EL VICTOR ####[employer] [place], [place] [id number] Lab Director: Ken Sidhu MD#### MG, CDP, CP ####[facility] [place] [address] Lab Director: David Montez MD#### KRISTAL, B12 ####[address] 9[address] Lab Director: Chencho Olvera, VONDArimidone and Metabon [id number] [Mass/Vol]13.4 ug/mLLow15.0-40.0[facility] Comment on above:Result Comment: (NOTE)Performed By: [facility] [place] [address]Sovdicmgqt Director: Subhash Mcclure MD, PhDCLIA Number: [id number] By: #### BIBIANA VICTORIM ####[facility] [address] [place] [address] Lab Director: Ken Sidhu MD#### , CDP, CP ####[address] , [place] [address] Lab Director: David Montez MD#### KRISTAL, B12 ####[address] 9[address] Lab Director: VONDA Nelsonrimidone12.4 ug/mLHigh5.0-12.0[facility] Comment on above:Result Comment: (NOTE)INTERPRETIVE INFORMATION: Primidone and MetabolitePrimidone concentrations greater than 15 ug/mL in conjunction withtherapeutic levels of phenobarbital may be associated withtoxi city.Phenobarbital0-2 months Toxic: 40.1 or greater3 months and older Toxic: 50.1 or greaterPerformed By: #### LAURENS, APRIM ####[facility] [address] [place] [address] Lab Director: Ken Sidhu MD#### MG, CDP, CP ####[facility] [place] [address] Lab Director: David Montez MD#### KRISTAL, B12 ####[facility] [address] [place] [place], [place] [id number] lab Director: Chencho Olvera [facility] with Auto Differentialon [id number] (Bld) [#/Vol]0.04 10*3/uLBon Secours Mercy HealthBasophils/100 WBC (Bld)1 %0 - 2 %[facility] Eosinophils (Bld) [#/Vol]0.50 10*3/uLHighBon Secours Mercy HealthEosinophils/100 WBC (Bld)7 %High1 - 4 %[facility] HealthErythrocyte distribution width (RBC) [Ratio]12.2 %11.8 - 14.4 %[facility] Hospitaly HealthHematocrit (Bld) [Volume fraction]35.6 %Low40.7 - 50.3 %[facility] HealthHemoglobin (Bld) [Mass/Vol]11.6 g/dLLow13.0 - 17.0 g/dLBon Secours Mercy Bellevue HospitalImmature granulocytes (Bld) [#/Vol]0.03 10*3/uLBon Secours Mercy HealthImmature granulocytes/100 WBC (Bld)0 %0[facility] HealthInterpretation and review of laboratory resultsAbnormalBon Secours Mercy HealthLymphocytes/100 WBC (Bld)23 %Low24 - 43 %[facility] HealthLymphocytes/100 WBC (Bld)1.70 %[facility] Hospitaly [facility] HospitalH (RBC) [Entitic mass]32.0 pg25.2 - 33.5 pgBon Secours Mercy Health Perrysburg Hospitaly [facility] HospitalHC (RBC) [Mass/Vol]32.6 g/dL28.4 - 34.8 g/dLBon Secours Mercy [facility] Rehabilitation HospitalV (RBC) [Entitic vol]98.3 fL82.6 - 102.9 fLBon Secours Mercy HealthMonocytes/100 WBC (Bld)10 %3 - 12 %[facility] HealthMonocytes/100 WBC (Bld)0.76 %Bon [facility] HospitalNeutrophils/100 WBC (Bld)59 %36 - 65 %Bon [facility] HospitalNucleated RBC/100 WBC (Bld) [Ratio]0.0 %0.0 per 100 WBCBon [facility] Center HealthPlatelet mean volume (Bld) [Entitic vol]10.3 fL8.1 - 13.5 fLBon [facility] Center HealthPlatelets (Bld) [#/Vol]252 10*3/uLBon SecOchsner Medical Center HealthRBC (Bld) [#/Vol]3.62 10*6/uLLow4.21 - 5.77 m/uLSentara Rmh Medical CenterSegmented neutrophils/100 WBC (Bld)4.42 %Bon [facility] HospitalWBC other (Bld) [#/Vol] 7.5Bon SecThe University of Toledo Medical CenterBon [facility] HospitalCBC with Diffon 04-30-2024 Abs. Basophil0.04 k/uLNormal0.00-0.20[facility] HealthComment on above: Performed By: ###EL DEE ####[facility] [address] [place], [place] [id number] Lab Director: Ken Sidhu MD#### MIESHA YUAN, CP ####[address] [place] [phone] Director: David Montez MD#### Willard GIRALDO ####[facility] [address] [place], [place] [address] Lab Director: Chencho Olvera MD Abs.Imm.Granulocyte0.03 k/uLNormal0.00-0.30[facility] HealthComment on above:Performed By: ###EL DEE ####[facility] [address] [place] [address] Lab Director: Ken Sidhu MD#### MIESHA YUAN, CP ####[address] , [place] [phone] Director: David Montez MD#### KRISTAL B12 ####[address] [address] Lab Director: Chencho Olvera MD Abs.Neutrophil (Seg)4.42 k/uLNormal1.50-8.10[facility] HospitalComment on above:Performed By: #### EL VICTOR ####[facility] [address] [place] [address] Lab Director: Ken Sidhu MD#### , CDP, CP ####[address] [place] [phone] Director: David Montez MD#### KRISTAL B12 ####[place], [place] [address])[phone] Director: Chencho Olvera MD Basophils/100 WBC (Bld)1 %Normal0-2[facility] [place] HospitalComment on above: Performed By: ###EL DEE ####[facility] [address] [place] [address] Lab Director: Ken Sidhu MD#### , CDP, CP ####[address] , [place] [address])[phone] Director: David Montez MD#### KRISTAL, B12 ####[facility] [address] [place], [place] [phone] Director: Chencho Olvera MD Eosinophils (Bld) [#/Vol]0.50 10*3/uLHigh0.00-0.44[facility] HospitalComment on above:Performed By: #### EL VICTOR ####[facility] [address] [place] [address] Lab Director: Ken Sidhu MD#### MG, CDP, CP ####[address] [place] [address] Lab Director: David Montez MD#### KRISTAL, B12 ####[facility] l[address]iv[address] [place] [address] Lab Director: Chencho Olvera MDEosinophils/100 WBC (Bld)7 %High1-4[facility] HealthComment on above: Performed By: #### VALENTE APRIM ####[facility] [address] [place], [place] [address] Lab Director: Ken Sidhu MD#### , CDP, CP ####[address] , [place] [phone] Director: David Montez MD#### KRISTAL, B12 ####[facility]y [address]bpnmxta[address] [place] [address] Lab Director: Chencho Olvera MD Erythrocyte distribution width (RBC) [Ratio]12.2 %Idbllx19.8-14.4[facility] HealthComment on above:Performed By: #### BIBIANA VICTORIM ####[facility] [address] [place] [address] Lab Director: Ken Sidhu MD#### , CDP, CP ####[address] , [place] [address] Lab Director: David Montez MD#### KRISTLA, B12 ####[facility]y [address]laqhrlwd2564 [place] [address] Lab Director: Chencho Olvera MDHematocrit (Bld) [Volume fraction]35.6 %Low40.7-50.3 [facility] HospitalComment on above:Performed By: #### VALENTE APRIM ####[facility] [address] [place] [address] Lab Director: Ken Sidhu MD#### MG CDP, CP ####[address] [place] [phone] Director: David Montez MD#### KRISTAL, B12 ####[place] [address] [place] [phone] Director: Chencho Olvera MDHemoglobin (Bld) [Mass/Vol]11.6 g/dLLow13.0-17.0 [facility] HealthComment on above:Performed By: #### BIBIANA VICTORIM ####[facility] [address] [place] [address] Lab Director: Ken Sidhu MD#### MG CDP, CP ####[address] [place] [address] Lab Director: David Montez MD#### KRISTAL, B12 ####[place] [address] [place] [address] Lab Director: Mahsa Nelsonmature granulocytes/100 WBC (Bld)0 %Kfeash7GfntnKettering HealthComment on above:Performed By: #### EL VICTOR ####[facility] [address] [place] [address] Lab Director: Ken Sidhu MD#### MG CDP, CP ####[address] [place] [address] Lab Director: David Montez MD#### KRISTAL, B12 ####[place] [address] [place] [address] Lab Director: Chencho Olvera MDLymphocytes (Bld) [#/Vol]1.70 10*3/uLNormal1.10-3.70 [facility] HealthComment on above:Performed By: #### BIBIANA VICTORIM ####[facility] [address] [place] [address] Lab Director: Ken Sidhu MD#### MG, CDP, CP ####[address] [place] [address] Lab Director: David Montez MD#### KRISTAL, B12 ####[facility]y [address]xwchhxhktpa8787 [place], [place] [phone] Director: Chencho Olvera MDLymphocytes/100 WBC (Bld)23 %Eqs55-54QpqlxKettering HealthComment on above:Performed By: #### BIBIANA VICTORIM ####[facility] [address] [place] [address] Lab Director: Ken Sidhu MD#### , CDP, CP ####[address] [place] [address] Lab Director: David Montez MD#### KRISTAL, B12 ####[facility] [address]cp[address] [place] [phone] Director: Chenhco Olvera [facility] HOSPITALCH (RBC) [Entitic mass]32.0 nnLaexjk75.2-33.5[facility] HealthComment on above:Performed By: #### VALENTE APRIM ####[facility] [address] [place], [place] [phone] Director: Ken Sidhu MD#### MG, CDP, CP ####[address] [place] [phone] Director: David Montez MD#### KRISTAL, B12 ####[facility] [address] [place] [address] Lab Director: DUKE NelsonCHC (RBC) [Mass/Vol]32.6 g/xUZuhgbz98.4-34.8[facility] HealthComment on above:Performed By: #### EL VICTOR ####[facility] [address] [place] [address] Lab Director: Ken Sidhu MD#### MIESHA YUAN, CP ####[address] [place], [place] [address] Lab Director: David Montez MD#### KRISTAL, B12 ####[address] [address] Lab Director: DUKE NelsonCV (RBC) [Entitic vol]98.3 yQXqesdp07.6-102.9[facility] HealthComment on above:Performed By: #### EL VICTOR ####[facility] [address] [place] [address] Lab Director: Ken Sidhu MD#### MIESHA YUAN, CP ####[address] [place], [place] [address] Lab Director: David Montez MD#### KRISTAL, B12 ####[address] [address] Lab Director: DUKE Nelsononocytes (Bld) [#/Vol]0.76 10*3/uLNormal0.10-1.20 [facility] HealthComment on above:Performed By: ###EL DEE ####[facility] [address] [place] [address] Lab Director: Ken Sidhu MD#### , CDP, CP ####[address] [place], [place] [address] Lab Director: David Montez MD#### KRISTAL, B12 ####[facility] [address] [place] [address] Lab Director: DUKE Nelsononocytes/100 WBC (Bld)10 %Normal3-12K[facility]tering HealthComment on above:Performed By: #### VALENTE APRIM ####[facility] [address] [place] [address] Lab Director: Ken Sidhu MD#### MG, CDP, CP ####[address] , [place] 7[address]83 Lab Director: David Montez MD#### KRISTAL, B12 ####[facility] Clfpiklfyyvc2367 [place] [address] Lab Director: Chencho Olvera MDNeutrophil (Seg)59 %Ofglcs73-35JldkzKettering Health Comment on above:Performed By: #### BIBIANA VICTORIM ####[facility] Tgecodoirpmb409 [place] [address] Lab Director: Ken Sidhu MD#### MG, CDP, CP ####[address] [place] [address] Lab Director: David Montez MD#### KRISTAL, B12 ####[facility] Meahnaokhsya2717 [place] [address] Lab Director: Chencho Olvera MDNRBC Automated0.0 per 100 WBCNormal0.0[facility] Comment on above:Performed By: #### VALENTE APRIM ####[facility] Vfjvzzuzfufv515 [place] [address] Lab Director: Ken Sidhu MD#### MG, CDP, CP ####[address] [place] [address] Lab Director: David Montez MD#### KRISTAL, B12 ####[facility] Xtyccxfcaesc6113 [place] [address] Lab Director: Maria Luisa Nelson mean volume (Bld) [Entitic vol]10.3 fLNormal8.1-13.5 [facility] HospitalComment on above:Performed By: #### BIBIANA VICTORIM ####[facility] Vnnfhxfxhrkb970 [place], [place] [phone] Director: Ken Sidhu MD#### MG, CDP, CP ####[address] [place], [place] [address] Lab Director: David Montez MD#### KRISTAL, B12 ####[facility] Ukgwoqfarplk8060 [place] [address] Lab Director: Dacia Nelson (Bld) [#/Vol]252 10*3/cWDitqen896-349Flxjd [facility] HospitalComment on above:Performed By: ###EL DEE ####[facility] [address] [place] [address] Lab Director: Ken Sidhu MD#### , CDP, CP ####[address] , [place] 1370383 Lab Director: David Montez MD#### KRISTAL, B12 ####[facility] Pzzedlxpkkuw9673 [place] [address] Lab Director: STEVE NelsonBC (Bld) [#/Vol]3.62 10*6/uLLow4.21-5.77[facility] HospitalComment on above:Performed By: #### BIBIANA VICTORIM ####[facility] Qrdrifbhdycf954 [place] [address] Lab Director: Ken Sidhu MD#### MG, CDP, CP ####[address] , [place] 5126983 Lab Director: David Montez MD#### KRISTAL, B12 ####[facility] Jysfkvfupust9441 [place] [address] Lab Director: Chencho Olvera [facility]DMADISON [facility]EN[facility] ([facility] [#/Vol]7.5 10*3/uLNormal3.5-11.3[facility]hers HospitalComment on above:Performed By: #### EL VICTOR ####[facility] [address] [place] [address] [phone] Lab Director: Ken Sidhu MD#### , CDP, CP ####[address] , [place] 4151383 Lab Director: David Montez MD#### KRISTAL, B12 ####[facility] Xxtkgtgfpciy8327 [place], [place] [phone] Director: PATTI Nelsonomp Metabolic Profon 63-53-3172Krfsnht [Mass/Vol] 3.8 g/dLNormal3.5-5.2[facility]uthers HospitalComment on above:Performed By: #### EL VICTOR ####[facility] [address] [place] [address] Lab Director: Ken Sidhu MD#### MG, CDP, CP ####[address] , [place] 867[address]83 Lab Director: David Montez MD#### KRISTAL, B12 ####[facility] Bmruelmvxbul1227 [place], [place] [phone] Director: Chencho Olvera MDAlbumin/Glob Ratio1.7Xnowij1.0-2.5[facility]uthers HospitalComment on above:Performed By: #### EL VICTOR ####[facility] Qxwmvfivdeaj735 [place] [address] Lab Director: Ken Sidhu MD#### , CDP, CP ####[address] [place] [address] Lab Director: David Montez MD#### KRISTAL, B12 ####[facility] Xdyxsnixljwd4690 [place] [address] Lab Director: Linda Nelson Muhv407 U/AIhfx16-281Ikwwg [facility] HospitalComment on above:Performed By: #### EL VICTOR ####[facility] [address] [place] [phone] Director: Ken Sidhu MD#### MG CDP, CP ####[address] [place] [address] Lab Director: David Montez MD#### KRISTAL, B12 ####[facility] Bjattkxeqyrs2102 [place] [address] Lab Director: IRVING Nelson [Catalytic activity/Vol]16 U/CNrksws74-42Ukibn [facility] HospitalComment on above:Performed By: ###EL DEE ####[facility] [address] [place] [phone] Director: Ken Sidhu MD#### MG CDP, CP ####[address] [place] [address] Lab Director: David Montez MD#### KRISTAL, B12 ####[facility] Mirzozimfjkx5630 [place] [address] Lab Director: Tomer Nelson gap [Moles/Vol]10 mmol/L Normal9-16[facility]hers HospitalComment on above:Performed By: #### EL VICTOR ####[facility] Oxshcnncfmgh176 [place] [address] Lab Director: Ken Sidhu MD#### MG CDP, CP ####[address] [place] [address] Lab Director: David Montez MD#### KRISTAL, B12 ####[facility] Fkhgstjbfdnn6297 [place] [address] Lab Director: Chencho Olvera MDAST [Catalytic activity/Vol]13 U/LDlyerd37-30NbrirKettering HealthComment on above:Performed By: #### EL VICTOR ####[facility] Cpmkevufauwo130 [place] [phone] Director: Ken Sidhu MD#### MIESHA YUAN, CP ####[address] [place] [address] Lab Director: David Montez MD#### KRISTAL, B12 ####[facility] Fknjezsaysxe7851 [place] [address] Lab Director: Chencho Olvera MDBilirubin [Mass/Vol]mg/dL Normal0.00-1.20K[facility]tering HealthComment on above:Performed By: ###EL DEE ####[facility] Xdcqdwlepwqq871 [place] [phone] Director: Ken Sidhu MD#### MG CDP, CP ####[address] [place] [address] Lab Director: David Montez MD#### KRISTAL, B12 ####[facility] Zvtvasiujkle3301 [place] [address] Lab Director: Chencho Olvera MDBUN/CRE Nehaw60Ssrhgk9-05Cbdaw Caruthers HospitalComment on above:Performed By: #### BIBIANA VICTORIM ####[facility] [address] [place] [address] Lab Director: Ken Sidhu MD#### MG CDP, CP ####[address] [place] [address] Lab Director: David Montez MD#### KRISTAL, B12 ####[facility] Tillaikhlolq6595 [place] [address] Lab Director: PATTI Nelsonalcium [Mass/Vol]8.9 mg/dLNormal8.6-10.4[facility] HospitalComment on above:Performed By: #### BIBIANA VICTORIM ####[facility] [address]ps[address]ptcn[address] [place] [address] Lab Director: Ken Sidhu MD#### MIESHA YUAN, CP ####[address] , [place] 4655783 Lab Director: David Montez MD#### KRISTAL B12 ####[facility] Tljpyihhulcr6971 [place] [address] Lab Director: PATTI Nelsonhloride [Moles/Vol]107 mmol/DNpqerd83-946Alvat [place] HospitalComment on above:Performed By: #### EL VICTOR ####[facility] Cauxbplwtgvj299 [place] [address] Lab Director: Ken Sidhu MD#### MG CDP, CP ####[address] [place] [address] Lab Director: David Montez MD#### KRISTAL, B12 ####[facility] Dnamzdbxlldd5099 [place] [address] Lab Director: Chencho Madoff, MDCO2 [Moles/Vol]21 mmol/RFdiuvm41-06MmxftKettering HealthComment on above:Performed By: #### BIBIANA VICTORIM ####[facility] Ahdrkukeggki573 [place] [address] Lab Director: Ken Sidhu MD#### MG, CDP, CP ####[address] , [place] 4366783 Lab Director: David Montez MD#### KRISTAL, B12 ####[facility] Gxijpmxyzsnf1765 [place], [place] 3756008 Lab Director: PATTI Nelsonreatinine [Mass/Vol]0.9 mg/dLNormal0.70-1.20K[facility]tering HealthComment on above:Performed By: #### EL VICTOR ####[facility] [address] [place] [address] Lab Director: Ken Sidhu MD#### MG, CDP, CP ####[address] , [facility]83 Lab Director: David Montez MD#### KRISTAL, B12 ####[facility] Ngkunlfeiwxn6541 [place] [address] Lab Director: Chencho Olvera MDGFR/1.73 sq M.predicted among non-blacks MDRD (S/P/Bld) [Vol rate/Area]mL/min/{1.73_m2}Normal>60K[facility]tering HealthComment on above:Result Comment: These results are not intended for use in patients <18 years of age.eGFR resultsare calculated without a race factor using the 2020 CKD-EPI equation.Careful clinical correlation is recommended, particularly when comparing to results calculated using previous equations.The CKD-EPI equation is less accurate in patients with extremes of muscle mass, extra-renal metabolism of creatine, excessive creatine ingestion, or following therapy that affects renal tubular secretion.Performed By: #### ALACOS, APRIM ####[facility] Vndbrdopdebg314 [place] [address] Lab Director: Ken Sidhu MD#### , CDP, CP ####[address] [place], [place] 1275683 Lab Director: David Montez MD#### KRISTAL, B12 ####[facility] Nzwevwpqtxlr3070 [place] [address] Lab Director: Chencho Olvera MDGlucose [Mass/Vol]86 mg/zSJtngrf90-69Cnerp Caruthers HospitalComment on above:Performed By: #### EL VICTOR ####[facility] [address]pe[address] [place] [address] Lab Director: Ken Sidhu MD#### MG CDP, CP ####[address] , [place] 7934083 Lab Director: David Montez MD#### KRISTAL, B12 ####[facility] Flhbsiawnnlt7489 [place] [address] Lab Director: Chencho Olvera MDPotassium [Moles/Vol]4.3 mmol/LNormal3.7-5.3[facility] HospitalComment on above:Performed By: ###EL DEE ####[facility] [address]fa[address] [place] [address] Lab Director: Ken Sidhu MD#### MG CDP, CP ####[address] [place] [address] Lab Director: David Montez MD#### KRISTAL, B12 ####[facility] Mdvoeodggvym8769 [place] [address] Lab Director: Chencho Olvera MDProtein [Mass/Vol]7.2 g/dLNormal6.6-8.7[facility] HospitalComment on above:Performed By: #### BIBIANA VICTORIM ####[facility] Hqwxfcwjrgbp065 [place] [address] Lab Director: Ken Sidhu MD#### MG, CDP, CP ####[address] , [place] 4904083 Lab Director: David Montez MD#### KRISTAL, B12 ####[facility] Uoaxxtiwmokk7745 [place] [address] Lab Director: GIN Nelsonodium [Moles/Vol]138 mmol/XTjwfom958-813JehbqKettering HealthComment on above:Performed By: #### BIBIANA VICTORIM ####[facility] [address]zq[address]exms[address] [place] [address] Lab Director: Ken Sidhu MD#### , CDP, CP ####[address] , [place] 1636083 Lab Director: David Montez MD#### KRISTAL, B12 ####[facility] Qhibsroehhuk0664 [place] [address] Lab Director: Chencho Olvera MDUrea nitrogen [Mass/Vol]12 mg/dLNormal8-23K[facility]tering HealthComment on above:Performed By: #### BIBIANA VICTORIM ####[facility] Ooamlzisichi042 [place] [address] Lab Director: Ken Sidhu MD#### , CDP, CP ####[address] , [place] 8501283 Lab Director: David Montez MD#### KRISTAL, B12 ####[facility] Ncfjtkcssaqn0428 [place] [address] Lab Director: PATTI Nelsonomprehensive Metabolic Panelon [id number] [Mass/Vol]3.8 g/dL3.5 - 5.2 g/dLBon Almshouse San FranciscoPavlov MediaAlbumin/Globulin [Mass ratio]1.1 {ratio}1.0 - 2.5Bon SecDeer Park HospitalHarbinger Medical HealthALP [Catalytic activity/Vol] 156 U/LHigh40 - 129 U/LBon Secours [facility] Hospitaly HealthALT [Catalytic activity/Vol]16 U/L10 - 50 U/LBon SecThe University of Toledo Medical CenterAnion gap [Moles/Vol]10 mmol/L9 - 16 mmol/LBon SecOchsner Medical Center HealthAST [Catalytic activity/Vol]13 U/L10 - 50 U/LBon SecOchsner Medical Center HealthBilirubin [Mass/Vol]mg/dL0.00 - 1.20 mg/dLBon [facility] HealthCalcium [Mass/Vol]8.9 mg/dL8.6 - 10.4 mg/dLBon [facility] Attunity Chloride [Moles/Vol]107 mmol/L98 - 107 mmol/LBon [facility] HealthCO2 [Moles/Vol]21 mmol/L20 - 31 mmol/LBon [facility] AttunityCreatinine [Mass/Vol] 0.9 mg/dL0.70 - 1.20 mg/dLBon [facility] AttunityEst, Glom Filt Rate- PINFBon [facility] HospitalComment on above: These results are not intended [...] therapy that affects renal tubular secretion. Glucose [Mass/Vol]86 mg/dL74 - 99 mg/dLBon [facility]mshouse San FranciscoPavlov MediaInterpretation and review of laboratory resultsAbnormalBon SecOchsner Medical Center HealthPotassium [Moles/Vol]4.3 mmol/L3.7 - 5.3 mmol/LBon SecDeer Park HospitalHarbinger Medical HealthProtein [Mass/Vol] 7.2 g/dL6.6 - 8.7 g/dLBon SecDeer Park HospitalHarbinger Medical Bellevue HospitalSodium [Moles/Vol]138 mmol/L136 - 145 mmol/LBon [facility] HospitalUrea nitrogen [Mass/Vol]12 mg/dL8 - 23 mg/dL [facility] Medical CenterUrea nitrogen/Creatinine [Mass ratio]13 mg/mg9 - 20Bon [facility] HospitalKeppraon 09-55-0578RUVZ18 ug/mLNOhio State University Wexner Medical Center Comment on above:Result Comment: A reference range for Keppra has not been well established. The proposed therapeutic range for seizure control is 6-46 ug/mL.Measurement of Levetiracetam (Keppra) can be elevated due to the presence of both Keppra and Brivaracetam (Briviact) in the patient's system.The medications are structurally similar thus cross reactivity is possible.Pharmacokinetics of Keppra are affected byrenal function.The relationship between serum concentrations and toxicity is not known.Performed By: #### EL VICTOR ####[facility] Mozhbbxlcpws[address] [place], [place] [id number] Lab Director: Ken Sidhu MD#### MG, CDP, CP ####[facility] [place] [address] Lab Director: David Montez MD#### KEPPRA, B12 ####[facility] Tkltqoouepvb5974 [place], [place] 6473408 Lab Director: Chencho Olvera MDLevetiracetam Levelon 79-09-3215vmpAPEJLlnppu [Mass/Vol]40 ug/mLSentara Rmh Medical Center Comment on above: A reference range for [...] serum concentrations and toxicity is not known. [facility] Medical CenterMHPT CBC WITH DIFFon 35-45-2680Ejtkeehqf/100 WBC (Bld)1 %0 - 2 %[facility] HospitalEosinophils/100 WBC (Bld)7 %High1 - 4 %[facility] Erythrocyte distribution width (RBC) [Ratio]12.2 %11.8 - 14.4 %[facility] Hematocrit (Bld) [Volume fraction]35.6 %Low40.7 - 50.3 %[facility] Hemoglobin (Bld) [Mass/Vol]11.6 g/dLLow13.0 - 17.0 g/dLHermann Area District HospitalImmature granulocytes/100 WBC (Bld)0 %0[facility] HospitalInterpretation and review of laboratory resultsAbnormalHermann Area District HospitalLymphocytes/100 WBC (Bld)23 %Low24 - 43 %Christian HospitalH (RBC) [Entitic mass]32 pg25.2 - 33.5 pgChristian HospitalHC (RBC) [Mass/Vol]32.6 g/dL28.4 - 34.8 g/dLChristian HospitalV (RBC) [Entitic vol] 98.3 fL82.6 - 102.9 fLRusk Rehabilitation CenterPT ABS. BASOPHIL0.04NOSt. Luke's HospitalPT ABS. EOSINOPHIL0.5HighRusk Rehabilitation CenterPT ABS. LYMPH1.7[facility] CenterPT ABS. MONOCYTE0.76[facility] CenterPT ABS.IMM.GRANULOCYTE0.03[facility] ABS.NEUTROPHIL (SEG)4.42NOTenet [address] NRBC EGITTVDLP69.0 per 100 WBCResearch Medical Center-[facility]okside [facility] PLATELET WWWSH603FYYIResearch Medical Center-Brookside Campus WBC COUNT7.5[facility] Monocytes/100 WBC (Bld)10 %3 - 12 %[facility] HospitalPlatelet mean volume (Bld) [Entitic vol]10.3 fL8.1 - 13.5 fLHermann Area District HospitalRBC (Bld) [#/Vol]3.62 10*6/uLLow 4.21 - 5.77 m/uLHermann Area District HospitalSegmented neutrophils/100 WBC (Bld)59 %36 - 65 % [facility] HospitalOriginal Ordering Provider: SHAWNEE GOMEZCLINISYNCNOMS HealthcareMagnesiumon 44-18-3929Ysdnuwfcy [Mass/Vol]1.7 mg/dL1.6 - 2.4 mg/dLBon [facility] HospitalMagnesium [Mass/Vol]1.7 mg/dLNormal1.6-2.4[facility] HealthComment on above:Performed By: #### EL VICTOR ####[facility] Malguzxmbgyp862 [place] [address] Lab Director: Ken Sidhu MD#### MG CDP, CP ####[address] [place] [address] Lab Director: David Montez MD#### KRISTAL B12 ####[address] 9227708 Lab Director: Chencho Olvera MDNo Panel Informationon [id number] [facility] HospitalVitamin B12on 59-84-4617Faekhfxzk (Vitamin B12) [Mass/Vol]949 pg/mL232 - 1245 pg/mLBon [facility] HospitalBon [facility] HospitalCobalamin (Vitamin B12) [Mass/Vol]949 pg/fTSkhgnl692-5830Zmkcc [place] HospitalComment on above: Performed By: #### EL VICTOR ####[facility] [address] [place] [address] Lab Director: Ken Sidhu MD#### MIESHA YUAN, CP ####[address] [place] [phone] Director: David Montez MD#### KRISTAL, B12 ####[address] [place], [place] 7982608 Lab Director: Chencho Olvera MDFL SMALL BOWEL FOLLOW THROUGH ONLYon [id number] SMALL BOWEL FOLLOW THROUGH ONLYGuernsey Memorial HospitalBasic Metab w/rfx MGon 53-36-1646Nxyfn gap [Moles/Vol]9 mmol/LNormal9-16K[facility]tering HealthComment on above:Performed By: #### CDP, BMPX ####[address] [place] [address] Lab Director: David Montez MDBUN/CRE Vpyuj21Cgpf6-33Omvdz [facility] HospitalComment on above:Performed By: #### CDP, BMPX ####[address] [place] [address] Lab Director: PATTI Peckalcium [Mass/Vol]8.6 mg/dLNormal8.6-10.4MerGreene Memorial Hospital HospitalComment on above:Performed By: #### CDP, BMPX ####[address] [place] [address] Lab Director: PATTI Peckhloride [Moles/Vol]116 mmol/JMtwr78-551Fythf [place] HospitalComment on above:Performed By: #### CDP, BMPX ####[address] [place] [address] Lab Director: David Montez MDCO2 [Moles/Vol]25 mmol/PWbhfku20-19Xcyej [place] HospitalComment on above:Performed By: #### CDP, BMPX ####[address] [place] [address] Lab Director: PATTI Peckreatinine [Mass/Vol]0.8 mg/dLNormal 0.70-1.20[facility] HospitalComment on above:Performed By: #### CDP, BMPX ####[address] [place] [phone] Director: David Montez MDGFR/1.73 sq M.predicted among non-blacks MDRD (S/P/Bld) [Vol rate/Area]mL/min/{1.73_m2}Normal>60MerGreene Memorial Hospital HospitalComment on above:Result Comment: These results are not intended for use in patients <18 years of age.eGFR resultsare calculated without a race factor using the 2020 CKD-EPI equation.Careful clinical correlation is recommended, particularly when comparing to results calculated using previous equations.The CKD-EPI equation is less accurate in patients with extremes of muscle mass, extra-renal metabolism of creatine, excessive creatine ingestion, or following therapy that affects renal tubular secretion.Performed By: #### CDP, BMPX ####[address] , [place] 4819283 Lab Director: David Montez MDGlucose [Mass/Vol]95 mg/oLCsncsl28-68PkbahLouis Stokes Cleveland VA Medical CenterComment on above:Performed By: #### MIESHA, BMPX ####[address] , [place] 2944283 Lab Director: VONDA Peckotassium [Moles/Vol]3.9 mmol/LNormal3.7-5.3Msumma healthy Caruthers HospitalComment on above: Performed By: #### MIESHA, BMPX ####[address] [place] [address] Lab Director: GIN Peckodium [Moles/Vol]150 mmol/DWgjp045-145PxsbyKettering HealthComment on above:Performed By: #### MIESHA, BMPX ####[address] [place] [address] Lab Director: David Montez MDUrea nitrogen [Mass/Vol]20 mg/dLNormal8-23K[facility]tering HealthComment on above:Performed By: #### MIESHA, BMPX ####[address] , [place] 2162283 Lab Director: David Montez MDBasi Metabolic Panel w/ Reflex to MGon [id number] gap [Moles/Vol]9 mmol/L9 - 16 mmol/LBon Secours Mercy Health Anderson HospitalCalcium [Mass/Vol]8.6 mg/dL8.6 - 10.4 mg/dLBon Secours [facility] Health Chloride [Moles/Vol]116 mmol/LHigh98 - 107 mmol/LBon SecOchsner Medical Center HealthCO2 [Moles/Vol]25 mmol/L20 - 31 mmol/LBon SecThe University of Toledo Medical CenterCreatinine [Mass/Vol] 0.8 mg/dL0.70 - 1.20 mg/dLBon Secours Mercy Health Anderson HospitalEst, Glom Filt Rate- PINFBon [facility] HospitalComment on above: These results are not intended [...] therapy that affects renal tubular secretion. Glucose [Mass/Vol]95 mg/dL74 - 99 mg/dLBon [facility] HospitalInterpretation and review of laboratory resultsAbnormalBon [facility] HospitalPotassium [Moles/Vol]3.9 mmol/L3.7 - 5.3 mmol/LBon SecThe University of Toledo Medical CenterSodium [Moles/Vol] 150 mmol/ZZdeq701 - 145 mmol/LBon [facility] HospitalUrea nitrogen [Mass/Vol]20 mg/dL8 - 23 mg/dLBon SecThe University of Toledo Medical CenterUrea nitrogen/Creatinine [Mass ratio] 25 mg/mgHigh9 - 20Bon SecAscension Columbia Saint Mary's HospitalCBC auto differentialon [id number] (Bld) [#/Vol]0.03 10*3/uLBon Secours Mercy Health Anderson HospitalBasophils/100 WBC (Bld)0 %0 - 2 %Bon SecThe University of Toledo Medical CenterEosinophils (Bld) [#/Vol]0.24 10*3/uLBon Secours Mercy Bellevue HospitalEosinophils/100 WBC (Bld)3 %1 - 4 % [facility] SecThe University of Toledo Medical CenterErythrocyte distribution width (RBC) [Ratio]12.3 %11.8 - 14.4 %Bon SecDeer Park Hospitaly Bellevue HospitalHematocrit (Bld) [Volume fraction]37.4 %Low40.7 - 50.3 %[facility] Medical CenterHemoglobin (Bld) [Mass/Vol]11.8 g/dLLow13.0 - 17.0 g/dLBon SecThe University of Toledo Medical CenterImmature granulocytes (Bld) [#/Vol][facility] HospitalImmature granulocytes/100 WBC (Bld)0 %0Bon [facility] Interpretation and review of laboratory resultsAbnormalBon [facility] Lymphocytes/100 WBC (Bld)24 %24 - 43 %[facility] Medical CenterLymphocytes/100 WBC (Bld)1.79 %[facility] HospitalH (RBC) [Entitic mass]32.4 pg25.2 - 33.5 pgBon [facility]ult[facility] Health CenterHC (RBC) [Mass/Vol]31.6 g/dL28.4 - 34.8 g/dLBon SecUniversity Hospitals Parma Medical CenterV (RBC) [Entitic vol]102.7 fL82.6 - 102.9 fLBon [facility] HospitalMonocytes/100 WBC (Bld)8 %3 - 12 %[facility] Monocytes/100 WBC (Bld)0.59 %[facility] Medical CenterNeutrophils/100 WBC (Bld)65 %36 - 65 %[facility] Medical CenterNucleated RBC/100 WBC (Bld) [Ratio]0.0 %0.0 per 100 WBCBon [facility] HospitalPlatelet mean volume (Bld) [Entitic vol]9.5 fL8.1 - 13.5 fLBon [facility] HospitalPlatelets (Bld) [#/Vol]195 10*3/uLBon SecThe University of Toledo Medical CenterRBC (Bld) [#/Vol]3.64 10*6/uLLow4.21 - 5.77 m/uLBon [facility] HospitalSegmented neutrophils/100 WBC (Bld)4.70 %[facility] Medical CenterWBC other (Bld) [#/Vol]7.4Bon SecAscension Columbia Saint Mary's HospitalCBC with Diffon [id number]. Basophil0.03 k/uLNormal0.00-0.20[facility] Comment on above:Performed By: #### CDP, BMPX ####[address] , [place] [address] Lab Director: MDAbs. LivImm.Granulocyte<0.45Zoriyp8.00-0.30[facility] HospitalComment on above: Performed By: #### CDP, BMPX ####[address] [place] [address] Lab Director: Jaret Peck.Neutrophil (Seg)4.70 k/uLNormal1.50-8.10MerGreene Memorial Hospital HospitalComment on above:Performed By: #### CDP, BMPX ####[address] [place] [address] Lab Director: David Montez MDBasophils/100 WBC (Bld)0 % Normal0-2[facility]uthers HospitalComment on above:Performed By: #### CDP, BMPX ####[address] , [place] [phone] Director: David Montez MDEosinophils (Bld) [#/Vol]0.24 10*3/uLNormal 0.00-0.44[facility] HospitalComment on above:Performed By: #### CDP, BMPX ####[address] [place], [place] [address])[phone] Director: MARISOL Peckosinophils/100 WBC (Bld)3 %Normal1-4MerGreene Memorial Hospital HospitalComment on above:Performed By: #### CDP, BMPX ####[address] [place] [address] Lab Director: David Montez MDErythrocyte distribution width (RBC) [Ratio]12.3 %Normal 11.8-14.4Kettering HealthComment on above:Performed By: #### CDP, BMPX ####[address] [place] [phone] Director: David Montez MDHematocrit (Bld) [Volume fraction]37.4 %Low 40.7-50.3MLouis Stokes Cleveland [facility] Medical Center HospitalComment on above:Performed By: #### CDP, BMPX ####[address] , [phone] Director: David oMntez MDHemoglobin (Bld) [Mass/Vol]11.8 g/dLLow 13.0-17.0K[facility] HealthComment on above:Performed By: #### CDP, BMPX ####[address] , [phone] Director: David Montez MDImmature granulocytes/100 WBC (Bld)0 %Normal0 [facility] HealthComment on above:Performed By: #### CDP, BMPX ####[address] , [facility]83 Lab Director: David Montez MDLymphocytes (Bld) [#/Vol]1.79 10*3/uLNormal1.10-3.70 [facility] HealthComment on above:Performed By: #### MIESHA, BMPX ####[address] , [facility]83 Lab Director: Luis Peckmphocytes/100 WBC (Bld)24 %Nctyyw65-61RcsqxKettering HealthComment on above:Performed By: #### CDP, BMPX ####[address] , [facility]83 Lab Director: DUKE PeckCH (RBC) [Entitic mass]32.4 wsGleedz50.2-33.5[facility] Comment on above:Performed By: #### CDP, BMPX ####[address] [phone] Director: DUKE PeckCHC (RBC) [Mass/Vol]31.6 g/rRNcllqo92.4-34.8[facility] HealthComment on above:Performed By: #### CDP, BMPX ####[address] , [place] [phone] Director: DUKE PeckCV (RBC) [Entitic vol]102.7 uGRpswaf89.6-102.9K[facility]tering HealthComment on above: Performed By: #### CDP, BMPX ####[address] [place] [address] Lab Director: DUKE Peckonocytes (Bld) [#/Vol]0.59 10*3/uLNormal0.10-1.20[facility] HospitalComment on above: Performed By: #### CDP, BMPX ####[address] , [place] [phone] Director: DUKE Peckonocytes/100 WBC (Bld)8 %Normal3-12[facility]tering HealthComment on above:Performed By: #### CDP, BMPX ####[address] [place] [address] Lab Director: David Montez MDNeutrophil (Seg)65 %Fxrbdk33-77Gtrbr Tiffin HospitalComment on above:Performed By: #### CDP, BMPX ####[address] [place] [address] Lab Director: David Montez MDNRBC Automated0.0 per 100 WBCNormal0.0[facility] Comment on above:Performed By: #### CDP, BMPX ####[address] [place] [address] Lab Director: Maria Luisa Peck mean volume (Bld) [Entitic vol]9.5 fLNormal8.1-13.5K[facility]tering HealthComment on above:Performed By: #### CDP, BMPX ####[address] , [place] [phone] Director: Dacia Peck (Bld) [#/Vol]195 10*3/bHHeweca645-490NchlcKettering Health Comment on above:Performed By: #### CDP, BMPX ####[address] , [place] [phone] Director: STEVE PeckBC (Bld) [#/Vol]3.64 10*6/uLLow4.21-5.77K[facility]tering HealthComment on above:Performed By: #### MIESHA, BMPX ####[address] , [place] [address])[phone] Director: CELINA Peck (Bld) [#/Vol]7.4 10*3/uLNormal3.5-11.3MLouis Stokes Cleveland VA Medical CenterComment on above:Performed By: #### CDP, BMPX ####[address] , [place] [address])[phone] Director: Sangeetha Peck Metab w/rfx MGon 96-82-1967Jjxwi gap [Moles/Vol]13 mmol/LNormal9-16[facility] Comment on above:Performed By: #### CDP, BMPX ####[address] , [place] [phone] Director: STUART Peck/CRE Aemek33Xdup3-19QldspKettering HealthComment on above:Performed By: #### CDP, BMPX ####[address] , [place] 7067683 Lab Director: PATTI Peckalcium [Mass/Vol]8.7 mg/dL Normal8.6-10.4K[facility]tering HealthComment on above:Performed By: #### CDP, BMPX ####[address] , [place] [address]83 Lab Director: David Montez MDChloride [Moles/Vol]118 mmol/LHigh 98-107K[facility]tering HealthComment on above:Performed By: #### CDP, BMPX ####[address] [place] [phone] Director: David Montez MDCO2 [Moles/Vol]22 mmol/ZGhqapm89-52TlhxbKettering HealthComment on above:Performed By: #### CDP, BMPX ####[address] [place] [address] Lab Director: PATTI Peckreatinine [Mass/Vol]0.8 mg/dLNormal0.70-1.20[facility]tering HealthComment on above:Performed By: #### CDP, BMPX ####[address] , [place] 6790[address] Lab Director: David Montez MDGFR/1.73 sq M.predicted among non-blacks MDRD (S/P/Bld) [Vol rate/Area]mL/min/{1.73_m2}Normal>60K[facility]tering HealthComment on above:Result Comment: These results are not intended for use in patients <18 years of age.eGFR resultsare calculated without a race factor using the 2020 CKD-EPI equation.Careful clinical correlation is recommended, particularly when comparing to results calculated using previous equations.The CKD-EPI equation is less accurate in patients with extremes of muscle mass, extra-renal metabolism of creatine, excessive creatine ingestion, or following therapy that affects renal tubular secretion.Performed By: #### CDP, BMPX ####[address] , [place] 3674283 [facility] Director: David Montez MDGlucose [Mass/Vol]79 mg/pNYqoxtx38-39Emoku Caruthers HospitalComment on above:Performed By: #### CDP, BMPX ####[address] , [place] 07[address]83 Lab Director: VONDA Peckotassium [Moles/Vol]3.8 mmol/LNormal3.7-5.3MLouis Stokes Cleveland VA Medical Center HospitalComment on above: Performed By: #### CDP, BMPX ####[address] [place] [address] Lab Director: GIN Peckodium [Moles/Vol]153 mmol/KEqbf726-098UeyzoKettering HealthComment on above:Performed By: #### MIESHA, BMPX ####[address] , [place] 7628483 Lab Director: David Montez MDUrea nitrogen [Mass/Vol]26 mg/dLHigh8-23Kettering HealthComment on above:Performed By: #### MIESHA, BMPX ####[address] , [place] 374[address]83 Lab Director: David Montez MDBasaint elizabeth he[place] Metabolic Panel w/ Reflex to MGon 41-92-0115Kiyke gap [Moles/Vol]13 mmol/L9 - 16 mmol/LBon [facility] HospitalCalcium [Mass/Vol]8.7 mg/dL8.6 - 10.4 mg/dLBon [facility] Chloride [Moles/Vol]118 mmol/LHigh98 - 107 mmol/LBon [facility] HospitalCO2 [Moles/Vol]22 mmol/L20 - 31 mmol/LBon [facility] HospitalCreatinine [Mass/Vol] 0.8 mg/dL0.70 - 1.20 mg/dLBon [facility] HospitalEst, Glom Filt Rate- PINFBon [facility] HospitalComment on above: These results are not intended [...] therapy that affects renal tubular secretion. Glucose [Mass/Vol]79 mg/dL74 - 99 mg/dLBon Secours Mercy HealthInterpretation and review of laboratory resultsAbnormalBon Secours Mercy HealthPotassium [Moles/Vol]3.8 mmol/L3.7 - 5.3 mmol/LBon Secours Mercy HealthSodium [Moles/Vol] 153 mmol/LLeye227 - 145 mmol/LBon Secours Mercy HealthUrea nitrogen [Mass/Vol]26 mg/dLHigh8 - 23 mg/dLBon Secours Mercy HealthUrea nitrogen/Creatinine [Mass ratio]33 mg/mgHigh9 - 20[facility] HealthBon Secours Mercy HealthCBC auto differentialon [id number] (Bld) [#/Vol]0.03 10*3/uLBon Secours Mercy HealthBasophils/100 WBC (Bld)0 %0 - 2 %[facility] HealthEosinophils (Bld) [#/Vol]0.06 10*3/uLBon Secours Mercy HealthEosinophils/100 WBC (Bld)1 %1 - 4 % [facility] HealthErythrocyte distribution width (RBC) [Ratio]12.3 %11.8 - 14.4 %[facility] HealthHematocrit (Bld) [Volume fraction]37.2 %Low40.7 - 50.3 %[facility] HealthHemoglobin (Bld) [Mass/Vol]11.9 g/dLLow13.0 - 17.0 g/dLBon Secours Mercy HealthImmature granulocytes (Bld) [#/Vol][facility] HealthImmature granulocytes/100 WBC (Bld)0 %0Bon SecNeuroSigmay Health Interpretation and review of laboratory resultsAbnormalBon Secours Mercy Health Lymphocytes/100 WBC (Bld)14 %Low24 - 43 %[facility] HealthLymphocytes/100 WBC (Bld)1.35 %[facility] HospitalH (RBC) [Entitic mass]32.8 pg25.2 - 33.5 pgSentara Martha Jefferson HospitalHC (RBC) [Mass/Vol]32.0 g/dL28.4 - 34.8 g/dLBon [facility] CenterV (RBC) [Entitic vol]102.5 fL82.6 - 102.9 fLSentara Rmh Medical CenterMonocytes/100 WBC (Bld)9 %3 - 12 %[facility] Monocytes/100 WBC (Bld)0.88 %[facility] Medical CenterNeutrophils/100 WBC (Bld)76 %High36 - 65 %[facility] Medical CenterNucleated RBC/100 WBC (Bld) [Ratio]0.0 % 0.0 per 100 WBCSentara Rmh Medical CenterPlatelet mean volume (Bld) [Entitic vol] 9.5 fL8.1 - 13.5 fLSentara Rmh Medical CenterPlatelets (Bld) [#/Vol]190 10*3/uLBon [facility] HospitalRBC (Bld) [#/Vol]3.63 10*6/uLLow4.21 - 5.77 m/uLSentara Rmh Medical CenterSegmented neutrophils/100 WBC (Bld)7.52 %[facility] WBC other (Bld) [#/Vol]9.9Bon [facility] HospitalCBC with Diffon [id number]. Basophil0.03 k/uLNormal0.00-0.20[facility] Comment on above:Performed By: #### CDP, BMPX ####[address] [place] [address] Lab Director: Jaret Peck.Imm.Granulocyte<0.24Gkfffx6.00-0.30K[facility]tering HealthComment on above: Performed By: #### CDP, BMPX ####[address] [place] [address] Lab Director: Jaret Peck.Neutrophil (Seg)7.52 k/uLNormal1.50-8.10[facility] HospitalComment on above:Performed By: #### CDP, BMPX ####[address] , [facility]83 Lab Director: David Montez MDBasophils/100 WBC (Bld)0 % Normal0-2Mer[facility] Caruthers HospitalComment on above:Performed By: #### CDP, BMPX ####[address] [place] [phone] Director: David Montez MDEosinophils (Bld) [#/Vol]0.06 10*3/uLNormal 0.00-0.44[facility] HospitalComment on above:Performed By: #### CDP, BMPX ####[address] , [place] [address])[phone] Director: David Montez MDEosinophils/100 WBC (Bld)1 %Normal1-4[facility] HospitalComment on above:Performed By: #### MIESHA, BMPX ####[address] , [facility]83 Lab Director: David Montez MDErythrocyte distribution width (RBC) [Ratio]12.3 %Normal 11.8-14.4[facility] HospitalComment on above:Performed By: #### CDP, BMPX ####[address] , [facility]83[facility])[phone] Director: David Montez MDHematocrit (Bld) [Volume fraction]37.2 %Low 40.7-50.3Mer[facility] Caruthers HospitalComment on above:Performed By: #### CDP, BMPX ####[address] [place] [id number])[phone] Director: David Montez MDHemoglobin (Bld) [Mass/Vol]11.9 g/dLLow 13.0-17.0[facility]tering HealthComment on above:Performed By: #### CDP, BMPX ####[address] [place] [phone] Director: David Montez MDImmature granulocytes/100 WBC (Bld)0 %Normal0 [facility] HealthComment on above:Performed By: #### CDP, BMPX ####[address] [place] [address] Lab Director: Luis Peckmphocytes (Bld) [#/Vol]1.35 10*3/uLNormal1.10-3.70 [facility] HealthComment on above:Performed By: #### CDP, BMPX ####[address] [place] [address] Lab Director: Luis Peckmphocytes/100 WBC (Bld)14 %Rsq02-60AsbejKettering HealthComment on above:Performed By: #### CDP, BMPX ####[address] [place] [address] Lab Director: DUKE PeckCH (RBC) [Entitic mass]32.8 owBjwtcu94.2-33.5[facility] Comment on above:Performed By: #### CDP, BMPX ####[address] [place] [address] Lab Director: FRANCHESCA PeckC (RBC) [Mass/Vol]32.0 g/gWMbqwby31.4-34.8[facility] HealthComment on above:Performed By: #### CDP, BMPX ####[address] , [place] 6498783 Lab Director: DUKE PeckCV (RBC) [Entitic vol]102.5 sJWbutll69.6-102.9[facility] HealthComment on above: Performed By: #### CDP, BMPX ####[address] , [place] [phone] Director: DUKE Peckonocytes (Bld) [#/Vol]0.88 10*3/uLNormal0.10-1.20[facility] HospitalComment on above: Performed By: #### CDP, BMPX ####[address] [place] [address] Lab Director: DUKE Peckonocytes/100 WBC (Bld)9 %Normal3-12[facility] HospitalComment on above:Performed By: #### CDP, BMPX ####[address] [place] [address] Lab Director: Maya Peckutrophil (Seg)76 %Cnoa14-88Bshfm [facility]iffin HospitalComment on above:Performed By: #### CDP, BMPX ####[address] [place] [address] Lab Director: David Montez MDNRBC Automated0.0 per 100 WBCNormal0.0[facility] Comment on above:Performed By: #### CDP, BMPX ####[address] , [place] [phone] Director: VONDA Pecklatelet mean volume (Bld) [Entitic vol]9.5 fLNormal8.1-13.5[facility] HealthComment on above:Performed By: #### CDP, BMPX ####[address] [place] [address] Lab Director: VONDA Pecklatelets (Bld) [#/Vol]190 10*3/nRQnkbbp344-719OlfntKettering Health Comment on above:Performed By: #### CDP, BMPX ####[address] [place] [address] Lab Director: RONNIE Peck ([facility]) [#/Vol]3.63 10*6/uLLow4.21-5.77[facility] HealthComment on above:Performed By: #### CDP, BMPX ####[address] , [place] 5623783 Lab Director: CELINA Peck ([facility]) [#/Vol]9.9 10*3/uLNormal3.5-11.3MLouis Stokes Cleveland [facility] Center HospitalComment on above:Performed By: #### CDP, BMPX ####[address] , [place] [address])[phone] Director: David Montez MDEKG Rhythm Stripon 49-36-7238WZDDTTelluride Regional Medical CenterBasic Metab w/rfx MGon 11-94-8253Uhiyy gap [Moles/Vol]11 mmol/LNormal9-16[facility] HealthComment on above:Performed By: #### BMPX, CDP ####[address] , [place] 3351883 Lab Director: David Montez MDBUN/CRE Vuahg31Ndtk4-27OeduuKettering HealthComment on above:Performed By: #### BMPX, CDP ####[address] , [place] 4612283 Lab Director: David Montez MDCalcium [Mass/Vol]8.6 mg/dLNormal8.6-10.4[facility] HospitalComment on above:Performed By: #### BMPX, CDP ####[facility] [place] [address] Lab Director: PATTI Peckhloride [Moles/Vol]114 mmol/UDdxf30-413UvqjoKettering HealthComment on above:Performed By: #### BMPX, CDP ####[address] , [place] 2477583 Lab Director: David Montez MDCO2 [Moles/Vol]24 mmol/RQmhclq15-63LawibKettering HealthComment on above:Performed By: #### BMPX, CDP ####[address] [place] [address] Lab Director: PATTI Peckreatinine [Mass/Vol]0.8 mg/dLNormal 0.70-1.20[facility] HealthComment on above:Performed By: #### BMPX, CDP ####[address] , [place] [phone] Director: David Montez MDGFR/1.73 sq M.predicted among non-blacks MDRD (S/P/Bld) [Vol rate/Area]mL/min/{1.73_m2}Normal>60[facility] HealthComment on above:Result Comment: These results are not intended for use in patients <18 years of age.eGFR resultsare calculated without a race factor using the 2020 CKD-EPI equation.Careful clinical correlation is recommended, particularly when comparing to results calculated using previous equations.The CKD-EPI equation is less accurate in patients with extremes of muscle mass, extra-renal metabolism of creatine, excessive creatine ingestion, or following therapy that affects renal tubular secretion.Performed By: #### BMPX, CDP ####[address] , [place] 7008083 Lab Director: David Montez MDGlucose [Mass/Vol]82 mg/zFCykfiz05-13EbsrlLouis Stokes Cleveland VA Medical CenterComment on above:Performed By: #### BMPX, CDP ####[address] , [place] 6749083 Lab Director: VONDA Peckotassium [Moles/Vol]3.9 mmol/LNormal3.7-5.3[facility] HospitalComment on above: Performed By: #### BMPX, CDP ####[address] , [place] 5509083 Lab Director: GIN Peckodium [Moles/Vol]149 mmol/NCide441-498UsymbKettering HealthComment on above:Performed By: #### BMPX, CDP ####[address] , [place] 5332583 Lab Director: David Montez MDUrea nitrogen [Mass/Vol]29 mg/dLHigh8-23[facility] HealthComment on above:Performed By: #### BMPX, CDP ####[address] , [place] 3189183 Lab Director: David Montez MDNatchaug Hospital Metabolic Panel w/ Reflex to MGon 57-63-1270Rebrw gap [Moles/Vol]11 mmol/L9 - 16 mmol/LBon [facility] HospitalCalcium [Mass/Vol]8.6 mg/dL8.6 - 10.4 mg/dLBon [facility] Chloride [Moles/Vol]114 mmol/LHigh98 - 107 mmol/LBon [facility] HospitalCO2 [Moles/Vol]24 mmol/L20 - 31 mmol/LBon [facility] HospitalCreatinine [Mass/Vol] 0.8 mg/dL0.70 - 1.20 mg/dLBon [facility] HealthEst, Glom Filt Rate- PINFBon [facility] HospitalComment on above: These results are not intended [...] therapy that affects renal tubular secretion. Glucose [Mass/Vol]82 mg/dL74 - 99 mg/dLBon Secours Mercy Health Perrysburg Hospitaly HealthInterpretation and review of laboratory resultsAbnormalBon Secours Mercy HealthPotassium [Moles/Vol]3.9 mmol/L3.7 - 5.3 mmol/LBon Secours Mercy HealthSodium [Moles/Vol] 149 mmol/HJxmh419 - 145 mmol/LBon Secours Mercy HealthUrea nitrogen [Mass/Vol]29 mg/dLHigh8 - 23 mg/dLBon Secours Mercy HealthUrea nitrogen/Creatinine [Mass ratio]36 mg/mgHigh9 - 20[facility] Mercy HealthBon Secours Mer[facility] Health Perrysburg Hospitaly HealthCBC auto differentialon [id number] (Bld) [#/Vol]0.04 10*3/uLBon Secours Mercy HealthBasophils/100 WBC (Bld)0 %0 - 2 %[facility] HealthEosinophils (Bld) [#/Vol]0.09 10*3/uLBon Secours Mercy HealthEosinophils/100 WBC (Bld)1 %1 - 4 % [facility] HealthErythrocyte distribution width (RBC) [Ratio]12.3 %11.8 - 14.4 %[facility] HealthHematocrit (Bld) [Volume fraction]38.1 %Low40.7 - 50.3 %[facility] HealthHemoglobin (Bld) [Mass/Vol]12.3 g/dLLow13.0 - 17.0 g/dLBon Secours Mercy Bellevue HospitalImmature granulocytes (Bld) [#/Vol]0.04 10*3/uLBon Secours Mercy HealthImmature granulocytes/100 WBC (Bld)0 %0[facility] HealthInterpretation and review of laboratory resultsAbnormalBon Secours Mercy Bellevue HospitalLymphocytes/100 WBC (Bld)15 %Low24 - 43 %[facility] Perrysburg Hospitaly Health Lymphocytes/100 WBC (Bld)1.70 %[facility] HealthMCH (RBC) [Entitic mass] 32.5 pg25.2 - 33.5 pgBon [facility] CenterHC (RBC) [Mass/Vol]32.3 g/dL28.4 - 34.8 g/dLBon [facility] Health CenterV (RBC) [Entitic vol]100.5 fL82.6 - 102.9 fLSentara Rmh Medical CenterMonocytes/100 WBC (Bld)8 %3 - 12 %Bon [facility] HospitalMonocytes/100 WBC (Bld)0.90 %Bon [facility] HospitalNeutrophils/100 WBC (Bld)76 %High36 - 65 %Bon [facility] HospitalNucleated RBC/100 WBC (Bld) [Ratio]0.0 %0.0 per 100 WBCSentara Rmh Medical CenterPlatelet mean volume (Bld) [Entitic vol]9.2 fL8.1 - 13.5 fLSentara Rmh Medical CenterPlatelets (Bld) [#/Vol] 194 10*3/uLBon [facility] HospitalRBC (Bld) [#/Vol]3.79 10*6/uLLow4.21 - 5.77 m/uLSentara Rmh Medical CenterSegmented neutrophils/100 WBC (Bld)8.28 %HighSentara Rmh Medical CenterWBC other (Bld) [#/Vol]11.1Bon [facility] HospitalCBC with Diffon [id number]. Basophil0.04 k/uLNormal 0.00-0.20[facility] HospitalComment on above:Performed By: #### ANGELA, CDP ####[address] [place] [phone] Director: Jaret Peck.Imm.Granulocyte0.04 k/uLNormal0.00-0.30 [facility] HealthComment on above:Performed By: #### ANGELA, CDP ####[address] [place], [place] 4[address] lab Director: Jaret Peck.Neutrophil (Seg)8.28 k/uLHigh1.50-8.10[facility] HealthComment on above:Performed By: #### BMPX, CDP ####[address] , [place] [address] Lab Director: David Montez MDBasophils/100 WBC (Bld)0 %Normal0-2[facility] HospitalComment on above:Performed By: #### BMPX, CDP ####[address] , [place] [address])[phone] Director: David Montez MD Eosinophils (Bld) [#/Vol]0.09 10*3/uLNormal0.00-0.44[facility] HealthComment on above:Performed By: #### BMPX, CDP ####[address] , [facility]83[facility])[phone] Director: David Montez MD Eosinophils/100 WBC (Bld)1 %Normal1-4[facility] HealthComment on above: Performed By: #### BMPX, CDP ####[address] , [facility]83[facility])[phone] Director: David Montez MDErythrocyte distribution width (RBC) [Ratio]12.3 %Llnakb24.8-14.4[facility] Comment on above:Performed By: #### BMPX, CDP ####[address] , [place] [address])[phone] Director: David Montez MDHematocrit (Bld) [Volume fraction]38.1 %Low40.7-50.3MLouis Stokes Cleveland [facility] Center Comment on above:Performed By: #### BMPX, CDP ####[address] , [facility]83 Lab Director: David Montez MDHemoglobin (Bld) [Mass/Vol]12.3 g/dLLow13.0-17.0[facility] HealthComment on above:Performed By: #### BMPX, CDP ####[address] [place] [address] Lab Director: Malou Peckture granulocytes/100 WBC (Bld)0 %Gyhprv6Ilcai [facility]iffin HospitalComment on above: Performed By: #### BMPX, CDP ####[address] [place] [address] Lab Director: David Montez MDLymphocytes (Bld) [#/Vol]1.70 10*3/uLNormal1.10-3.70[facility] HospitalComment on above: Performed By: #### BMPX, CDP ####[address] , [facility]83 Lab Director: Luis Peckmphocytes/100 WBC (Bld)15 %Yhj43-28Xhxkd [facility] HospitalComment on above:Performed By: #### BMPX, CDP ####[address] [place] [address] Lab Director: DUKE PekcCH (RBC) [Entitic mass]32.5 pg Noffxz02.2-33.5[facility] HospitalComment on above:Performed By: #### BMPX, CDP ####[address] , [facility]83 Lab Director: FRANCHESCA PeckC (RBC) [Mass/Vol]32.3 g/dLNormal 28.4-34.8[facility] HospitalComment on above:Performed By: #### BMPX, CDP ####[address] , [place] [phone] Director: DUKE PeckCV (RBC) [Entitic vol]100.5 fLNormal 82.6-102.9MerGreene Memorial Hospital HospitalComment on above:Performed By: #### BMPX, CDP ####[address] [place] [phone] Director: DUKE Peckonocytes (Bld) [#/Vol]0.90 10*3/uLNormal 0.10-1.20MerGreene Memorial Hospital HospitalComment on above:Performed By: #### BMPX, CDP ####[address] [place] [phone] Director: DUKE Peckonocytes/100 WBC (Bld)8 %Normal3-12[facility] HospitalComment on above:Performed By: #### BMPX, CDP ####[address] [place] [address] Lab Director: David Montez MDNeutrophil (Seg)76 %Cxjq71-46Vnftt [facility] HospitalComment on above:Performed By: #### BMPX, CDP ####[address] [place] [address] Lab Director: David Montez MDNRBC Automated0.0 per 100 WBCNormal0.0[facility] HospitalComment on above:Performed By: #### BMPX, CDP ####[address] [place] [address] Lab Director: Abel Pecktear mean volume (Bld) [Entitic vol]9.2 fLNormal8.1-13.5MerGreene Memorial Hospital HospitalComment on above:Performed By: #### BMPX, CDP ####[address] [place] [address] Lab Director: VONDA Pecklatelets (Bld) [#/Vol]194 10*3/qBCzbrzf373-497Frlan [facility] HospitalComment on above: Performed By: #### BMPX, CDP ####[address] [place] [address] [facility] Director: RONNIE Peck ([facility]) [#/Vol] 3.79 10*6/uLLow4.21-5.77[facility] HealthComment on above:Performed By: #### BMPX, CDP ####[address] [place] [address] Lab Director: CELINA Peck ([facility]) [#/Vol]11.1 10*3/uL Normal3.5-11.3MLouis Stokes Cleveland [facility] Medical Center HospitalComment on above:Performed By: #### BMPX, CDP ####[address] , [place] 0650683 lab Director: David Montez MDEKG Rhythm Stripon 44-52-5482KPIRBTelluride Regional Medical CenterBasic Metab w/rfx MGon 85-37-4056Gkesf gap [Moles/Vol]12 mmol/LNormal9-16 [facility] HospitalComment on above:Performed By: #### BMPX, CDP ####[address] [place] [address] Lab Director: David Montez MDBUN/CRE Lljfd80Knug2-07Sraxd [facility] HospitalComment on above:Performed By: #### BMPX, CDP ####[address] [place] [address] Lab Director: David Montez MDCalcium [Mass/Vol]8.6 mg/dLNormal8.6-10.4[facility] HospitalComment on above:Performed By: #### BMPX, CDP ####[address] , [place] 7977483 Lab Director: PATTI Peckhloride [Moles/Vol]109 mmol/MMfir43-289SgvklKettering HealthComment on above:Performed By: #### BMPX, CDP ####[address] [place] [address] Lab Director: PATTI PeckO2 [Moles/Vol]25 mmol/PUsdelb70-03UoarsKettering HealthComment on above:Performed By: #### BMPX, CDP ####[address] [place] [address] Lab Director: PATTI Peckreatinine [Mass/Vol]1.1 mg/dLNormal 0.70-1.20[facility] HealthComment on above:Performed By: #### BMPX, CDP ####[address] [place] [phone] Director: David Montez MDGFR/1.73 sq M.predicted among non-blacks MDRD (S/P/Bld) [Vol rate/Area]76 mL/min/{1.73_m2}Normal>60[facility] Comment on above:Result Comment: These results are not intended for use in patients <18 years of age.eGFR resultsare calculated without a race factor using the 2020 CKD-EPI equation.Careful clinical correlation is recommended, particularly when comparing to results calculated using previous equations.The CKD-EPI equation is less accurate in patients with extremes of muscle mass, extra-renal metabolism of creatine, excessive creatine ingestion, or following therapy that affects renal tubular secretion.Performed By: #### BMPX, CDP ####[address] [place] [phone] Director: David Montez MDGlucose [Mass/Vol]104 mg/bENnaa27-77XhpdxLouis Stokes Cleveland VA Medical CenterComment on above:Performed By: #### BMPX, CDP ####[address] , [place] 326[address]83 Lab Director: VONDA Peckotassium [Moles/Vol]3.8 mmol/LNormal3.7-5.3[facility]uthers HospitalComment on above:Performed By: #### BMPX, CDP ####[address] [place] [address] Lab Director: GIN Peckodium [Moles/Vol]146 mmol/AEtdu100-702LtjzuKettering HealthComment on above:Performed By: #### BMPX, CDP ####[address] [place] [address] Lab Director: David Montez MDUrea nitrogen [Mass/Vol]36 mg/dLHigh8-23[facility] HealthComment on above: Performed By: #### BMPX, CDP ####[address] [place] [address] lab Director: Ella Peckjanine Metabolic Panel w/ Reflex to MGon 40-15-7275Kmxcy gap [Moles/Vol]12 mmol/L9 - 16 mmol/LBon [facility] HospitalCalcium [Mass/Vol]8.6 mg/dL8.6 - 10.4 mg/dLBon Cleveland [facility] HospitalChloride [Moles/Vol]109 mmol/LHigh98 - 107 mmol/LBon [facility] HospitalCO2 [Moles/Vol]25 mmol/L20 - 31 mmol/LBon [facility] HospitalCreatinine [Mass/Vol]1.1 mg/dL0.70 - 1.20 mg/dLBon [facility] HospitalEst, Glom Filt Rate 76- PINFBon [facility] HospitalComment on above: These results are not intended [...] therapy that affects renal tubular secretion. Glucose [Mass/Vol]104 mg/dLGezc56 - 99 mg/dLBon [facility] Interpretation and review of laboratory resultsAbnormalSentara Rmh Medical Center Potassium [Moles/Vol]3.8 mmol/L3.7 - 5.3 mmol/LBon [facility] HospitalSodium [Moles/Vol]146 mmol/AQorn492 - 145 mmol/LBon [facility] HospitalUrea nitrogen [Mass/Vol]36 mg/dLHigh8 - 23 mg/dLBon [facility] HospitalUrea nitrogen/Creatinine [Mass ratio]33 mg/mgHigh9 - 20Bon [facility] HospitalCBC auto differentialon [id number] (Bld) [#/Vol] 0.05 10*3/uLBon [facility] HospitalBasophils/100 WBC (Bld)0 %0 - 2 %[facility] Medical CenterEosinophils (Bld) [#/Vol]0.11 10*3/uLBon [facility] Eosinophils/100 WBC (Bld)1 %1 - 4 %[facility] Medical CenterErythrocyte distribution width (RBC) [Ratio]12.5 %11.8 - 14.4 %[facility] Hematocrit (Bld) [Volume fraction]42.4 %40.7 - 50.3 %[facility] Hemoglobin (Bld) [Mass/Vol]13.9 g/dL13.0 - 17.0 g/dLBon [facility] Immature granulocytes (Bld) [#/Vol]0.03 10*3/uLBon [facility] HospitalImmature granulocytes/100 WBC (Bld)0 %0Sent[facility] Medical CenterInterpretation and review of laboratory resultsAbnormalSentara Rmh Medical CenterLymphocytes/100 WBC (Bld)17 %Low24 - 43 %[facility] Medical CenterLymphocytes/100 WBC (Bld)2.14 %[facility] HospitalH (RBC) [Entitic mass]32.3 pg25.2 - 33.5 pgSentara Martha Jefferson HospitalHC (RBC) [Mass/Vol]32.8 g/dL28.4 - 34.8 g/dLBon [facility] CenterV (RBC) [Entitic vol]98.4 fL82.6 - 102.9 fLSentara Rmh Medical CenterMonocytes/100 WBC (Bld)9 %3 - 12 %Bon [facility] HospitalMonocytes/100 WBC (Bld)1.16 %[facility] CenterNeutrophils/100 WBC (Bld)73 %High36 - 65 %[facility] CenterNucleated RBC/100 WBC (Bld) [Ratio]0.0 %0.0 per 100 WBCSentara Rmh Medical CenterPlatelet mean volume (Bld) [Entitic vol]8.9 fL8.1 - 13.5 fLSentara Rmh Medical CenterPlatelets (Bld) [#/Vol]250 10*3/uLBon [facility] HospitalRBC (Bld) [#/Vol]4.31 10*6/uL4.21 - 5.77 m/uLSentara Rmh Medical CenterSegmented neutrophils/100 WBC (Bld)9.04 %HighSentara Rmh Medical CenterWBC other (Bld) [#/Vol]12.5HighMary Washington HospitalCBC with Diffon [id number]. Basophil0.05 k/uLNormal0.00-0.20MerGreene Memorial Hospital HospitalComment on above:Performed By: #### BMPX, CDP ####[address] [place] [address] Lab Director: David Montez MD Abs.Imm.Granulocyte0.03 k/uLNormal0.00-0.30[facility] HospitalComment on above:Performed By: #### BMPX, CDP ####[address] [place] [address] Lab Director: David Montez MD Abs.Neutrophil (Seg)9.04 k/uLHigh1.50-8.10K[facility]tering HealthComment on above: Performed By: #### BMPX, CDP ####[address] , [place] [address] Lab Director: David Montez MDBasophils/100 WBC (Bld)0 %Normal0-2MLouis Stokes [facility] Medical Center HospitalComment on above:Performed By: #### BMPX, CDP ####[address] , [facility]83 Lab Director: David Montez MDEosinophils (Bld) [#/Vol]0.11 10*3/uL Normal0.00-0.44K[facility]tering HealthComment on above:Performed By: #### BMPX, CDP ####[address] , [place] [address] Lab Director: David Montez MDEosinophils/100 WBC (Bld)1 %Normal1-4 [facility] HealthComment on above:Performed By: #### BMPX, CDP ####[address] , [place] [address] Lab Director: David Montez MDErythrocyte distribution width (RBC) [Ratio]12.5 % Ixutda52.8-14.4K[facility]tering HealthComment on above:Performed By: #### BMPX, CDP ####[address] , [facility]83 Lab Director: David Montez MDHematocrit (Bld) [Volume fraction] 42.4 %Bkhfkd69.7-50.3MLouis Stokes Cleveland VA Medical CenterComment on above:Performed By: #### BMPX, CDP ####[address] , [facility]83 Lab Director: David Montez MDHemoglobin (Bld) [Mass/Vol]13.9 g/dYRnbcue21.0-17.0K[facility]tering HealthComment on above:Performed By: #### BMPX, CDP ####[address] , [place] [id number] Lab Director: David Montez MDImmature granulocytes/100 WBC (Bld)0 %Tiefcu0SlgzyKettering HealthComment on above:Performed By: #### BMPX, CDP ####[address] [place] [address] Lab Director: Luis Peckmphocytes (Bld) [#/Vol]2.14 10*3/uL Normal1.10-3.70K[facility]tering HealthComment on above:Performed By: #### BMPX, CDP ####[address] [place] [address] Lab Director: Luis Peckmphocytes/100 WBC (Bld)17 %Kgu84-69 [facility] HealthComment on above:Performed By: #### BMPX, CDP ####[address] , [facility]83 Lab Director: DUKE PeckCH (RBC) [Entitic mass]32.3 xvVpraes10.2-33.5K[facility]tering HealthComment on above:Performed By: #### BMPX, CDP ####[address] [place] [address] Lab Director: DUKE PeckCHC (RBC) [Mass/Vol]32.8 g/cNYoatst04.4-34.8K[facility]tering HealthComment on above:Performed By: #### BMPX, CDP ####[address] [place] [address] Lab Director: DUKE PeckCV (RBC) [Entitic vol]98.4 gVSmmbsf29.6-102.9[facility] Comment on above:Performed By: #### BMPX, CDP ####[address] , [place] [address] Lab Director: DUKE Peckonocytes (Bld) [#/Vol]1.16 10*3/uLNormal0.10-1.20[facility] HospitalComment on above:Performed By: #### BMPX, CDP ####[address] [place] [address] Lab Director: David Montez MD Monocytes/100 WBC (Bld)9 %Normal3-12[facility] HospitalComment on above: Performed By: #### BMPX, CDP ####[address] [place] [address] Lab Director: David Montez MDNeutrophil (Seg) 73 %Thgn31-83Comrl [facility]iffin HospitalComment on above:Performed By: #### BMPX, CDP ####[address] [place] [phone] Director: David Montez MDNRBC Automated0.0 per 100 WBCNormal0.0[facility] HospitalComment on above:Performed By: #### BMPX, CDP ####[address] [place] [address] Lab Director: Abel Pecktear mean volume (Bld) [Entitic vol]8.9 fLNormal8.1-13.5 [facility] HealthComment on above:Performed By: #### BMPX, CDP ####[address] [place] [address] Lab Director: Abel Pecktezeenat (Bld) [#/Vol]250 10*3/vKXvrumi453-850Ogrii [facility]iff[facility] HospitalComment on above:Performed By: #### BMPX, CDP ####[address] [place] [address] Lab Director: David Montez MDRBC (Bld) [#/Vol]4.31 10*6/uLNormal4.21-5.77Mer[facility] Caruthers HospitalComment on above:Performed By: #### BMPX, CDP ####[facility] [place] , [place] [address] lab Director: HOME PeckBC (Bld) [#/Vol]12.5 10*3/uLHigh3.5-11.3[facility] HospitalComment on above:Performed By: #### BMPX, CDP ####[facility] [place] , [place] [id number] lab Director: CARLOS Peck 12 leadon [id number] Jhgf54WPMFuy [facility] HospitalP Wuee59xbamwhjKsjSouthside Regional Medical CenterP-R Keoqlgax337 msSentara Rmh Medical CenterQ-T Rxijecqa026 ms [facility] Medical CenterQRS Jnksppwv97 msSentara Rmh Medical CenterQTc Calculation (Herman)462 msSentara Rmh Medical CenterR [place]-11degreesSentara Rmh Medical CenterT Cxrc439kkvzbdaWsyRiverside Shore Memorial Hospital HealthVentricular Bdkc72KJOFje [facility] HospitalNormal sinus rhythm Minimal voltage criteria for LVH, may be normal variant ( R in aVL ) Abnormal QRS-T angle, consider primary T wave abnormality Abnormal ECG Confirmed by YANA CORNEJO ([id number]) on 04/20/2024 8:29:50 [facility] Yana Cornejo MD - 04/20/2024 Normal sinus rhythm Minimal voltage criteria for LVH, may be normal variant ( R in aVL ) Abnormal QRS-T angle, consider primary T wave abnormality Abnormal ECG Confirmed by YANA CORNEJO ([id number]) on 04/20/2024 8:29:50 PM Bon [facility] HospitalEKG Rhythm Stripon 04-20-[address]CBC with Auto Differentialon [id number] (Bld) [#/Vol]0.05 10*3/uLBon [facility] HospitalBasophils/100 WBC (Bld)0 %0 - 2 %[facility] HealthEosinophils (Bld) [#/Vol][facility] HealthEosinophils/100 WBC (Bld)0 %Low1 - 4 %[facility] HealthErythrocyte distribution width (RBC) [Ratio]12.3 %11.8 - 14.4 %[facility] HealthHematocrit (Bld) [Volume fraction]46.5 %40.7 - 50.3 %[facility] Hospitaly HealthHemoglobin (Bld) [Mass/Vol]15.3 g/dL13.0 - 17.0 g/dLBon Secours [facility] Health Perry[facility] Hospitaly HealthImmature granulocytes (Bld) [#/Vol]0.12 10*3/uLBon [facility]ours Mercy HealthImmature granulocytes/100 WBC (Bld)1 %Sxql4Prw Secours [facility] Hospitaly HealthInterpretation and review of laboratory resultsAbnormalBon [facility] Hospitaly HealthLymphocytes/100 WBC (Bld)8 %Low24 - 43 %[facility] Lymphocytes/100 WBC (Bld)1.42 %[facility] CenterH (RBC) [Entitic mass] 32.3 pg25.2 - 33.5 pgBon Secours Wright-Patterson Medical CenterHC (RBC) [Mass/Vol]32.9 g/dL28.4 - 34.8 g/dLBon Secours Wright-Patterson Medical CenterV (RBC) [Entitic vol]98.1 fL82.6 - 102.9 fL [facility] HealthMonocytes/100 WBC (Bld)6 %3 - 12 %[facility] Hospitaly HealthMonocytes/100 WBC (Bld)1.09 %[facility] Hospitaly HealthNeutrophils/100 WBC (Bld)85 %High36 - 65 %[facility] Hospitaly HealthNucleated RBC/100 WBC (Bld) [Ratio]0.0 %0.0 per 100 WBCBon Secours Mercy Health [facility] Hospitaly HealthPlatelet mean volume (Bld) [Entitic vol]8.9 fL8.1 - 13.5 fLBon Secours Mercy HealthPlatelets (Bld) [#/Vol] 270 10*3/uLBon [facility] Hospitaly HealthRBC (Bld) [#/Vol]4.74 10*6/uL4.21 - 5.77 m/uL [facility] Medical CenterSegmented neutrophils/100 WBC (Bld)16.05 %[facility] HospitalWBC other (Bld) [#/Vol]18.7HighMary Washington HospitalCB with Diffon [id number]. Basophil0.05 k/uLNormal 0.00-0.20[facility] HospitalComment on above:Performed By: #### CDP, CP, LIP, PT ####[address] [place] [address] Lab Director: Jaret Peck. Eosinophil<0.03Normal 0.00-0.44[facility] HospitalComment on above:Performed By: #### CDP, CP, LIP, PT ####[address] , [place] [address])[phone] Director: Jaret Peck.Imm.Granulocyte0.12 k/uL Normal0.00-0.30[facility] HospitalComment on above:Performed By: #### CDP, CP, LIP, PT ####[address] , [place] [address])[phone] Director: Jaret Peck.Neutrophil (Seg)16.05 k/uL High1.50-8.10[facility] HospitalComment on above:Performed By: #### CDP, CP, LIP, PT ####[address] [place] [address] Lab Director: David Montez MDBasophils/100 WBC (Bld)0 %Normal 0-2MercNationwide Children's Hospital HospitalComment on above:Performed By: #### CDP, CP, LIP, PT ####[address] [place] [phone] Director: David Montez MDEosinophils/100 WBC (Bld)0 %Low1-4[facility] HospitalComment on above:Performed By: #### CDP, CP, LIP, PT ####[address] , [place] [address])[phone] Director: David Montez MDErythrocyte distribution width (RBC) [Ratio]12.3 %Normal 11.8-14.4[facility] HospitalComment on above:Performed By: #### CDP, CP, LIP, PT ####[address] , [place] [address])[phone] Director: David Montez MDHematocrit (Bld) [Volume fraction]46.5 %Jxhllg79.7-50.3MercNationwide Children's Hospital HospitalComment on above:Performed By: #### CDP, CP, LIP, PT ####[address] , [place] [address])[phone] Director: David Montez MDHemoglobin (Bld) [Mass/Vol]15.3 g/yLAcpxmt14.0-17.0[facility] HospitalComment on above: Performed By: #### CDP, CP, LIP, PT ####[address] , [place] [address])[phone] Director: David Montez MDImmature granulocytes/100 WBC (Bld)1 %Gikl8UoolhPremier Health [facility] HospitalComment on above: Performed By: #### CDP, CP, LIP, PT ####[address] , [place] [address])[phone] Director: David Montez MD Lymphocytes (Bld) [#/Vol]1.42 10*3/uLNormal1.10-3.70K[facility]tering HealthComment on above:Performed By: #### CDP, CP, LIP, PT ####[address] , [place] [address])[phone] Director: David Montez MDLymphocytes/100 WBC (Bld)8 %Vns09-21Ospeu [facility]iffin HospitalComment on above: Performed By: #### CDP, CP, LIP, PT ####[address] , [place] [address])[phone] Director: DUKE PeckCH (RBC) [Entitic mass]32.3 cjOizhrv82.2-33.5[facility] HospitalComment on above: Performed By: #### CDP, CP, LIP, PT ####[address] , [place] [address])[phone] Director: FRANCHESCA PeckC (RBC) [Mass/Vol]32.9 g/jYPgijst44.4-34.8[facility] HospitalComment on above: Performed By: #### CDP, CP, LIP, PT ####[address] , [place] [address]([facility])[phone] Director: DUKE PeckCV (RBC) [Entitic vol]98.1 fVDptlpi25.6-102.9[facility] HospitalComment on above: Performed By: #### CDP, CP, LIP, PT ####[address] , [place] [address])[phone] Director: DUKE Peckonocytes (Bld) [#/Vol]1.09 10*3/uLNormal0.10-1.20[facility] HospitalComment on above: Performed By: #### CDP, CP, LIP, PT ####[address] , [place] [address])[phone] Director: David Montez MD Monocytes/100 WBC (Bld)6 %Normal3-12[facility] HospitalComment on above: Performed By: #### CDP, CP, LIP, PT ####[address] , [place] [address] Lab Director: David Montez MD Neutrophil (Seg)85 %Vjqb78-52Tdtpu [facility]in HospitalComment on above:Performed By: #### CDP, CP, LIP, PT ####[address] , [facility]83 Lab Director: David Montez MDNRBC Automated0.0 per 100 WBCNormal0.0[facility] HospitalComment on above:Performed By: #### CDP, CP, LIP, PT ####[address] , [facility]83 Lab Director: Maria Luisa Peck mean volume (Bld) [Entitic vol]8.9 fLNormal8.1-13.5[facility] HospitalComment on above:Performed By: #### CDP, CP, LIP, PT ####[address] , [place] [address])[phone] Director: Dacia Peck (Bld) [#/Vol]270 10*3/vTWufoqa774-681Zqlqj [facility] HospitalComment on above:Performed By: #### CDP, CP, LIP, PT ####[address] , [facility]83 Lab Director: STEVE PeckBC (Bld) [#/Vol] 4.74 10*6/uLNormal4.21-5.77[facility] HospitalComment on above:Performed By: #### CDP, CP, LIP, PT ####[address] , [facility]83 Lab Director: HOME PeckBC (Bld) [#/Vol] 18.7 10*3/uLHigh3.5-11.3[facility]uthers HospitalComment on above:Performed By: #### CDP, CP, LIP, PT ####[address] [place] [address] [facility] Director: David Montez [facility] [id number] [Mass/Vol]4.4 g/dL3.5 - 5.2 g/dLBon [facility] Medical CenterNextworthAlbumin/Globulin [Mass ratio]1.1 {ratio}1.0 - 2.5Bon SecNetops Technology HealthALP [Catalytic activity/Vol] 215 U/LHigh40 - 129 U/LBon SecNetops Technology HealthALT [Catalytic activity/Vol]13 U/L10 - 50 U/LBon Secchristianacare Hawaii BiotechAnion gap [Moles/Vol]14 mmol/L9 - 16 mmol/LBon Secours Invaluable HealthAST [Catalytic activity/Vol]18 U/L10 - 50 U/LBon [facility] CenterNextworthBilirubin [Mass/Vol]0.3 mg/dL0.00 - 1.20 mg/dLBon [facility] CenterNextworthCalcium [Mass/Vol]9.9 mg/dL8.6 - 10.4 mg/dLBon [facility] Chloride [Moles/Vol]104 mmol/L98 - 107 mmol/LBon [facility] BiotechCO2 [Moles/Vol]25 mmol/L20 - 31 mmol/LBon [facility] BiotechCreatinine [Mass/Vol] 1.3 mg/dLHigh0.70 - 1.20 mg/dLBon [facility] CenterNextworthEst, Glom Filt Aqpb47Hbq- PINFBon [facility] BiotechComment on above: These results are not intended [...] therapy that affects renal tubular secretion. Glucose [Mass/Vol]111 mg/sJOojp70 - 99 mg/dLBon [employer] Interpretation and review of laboratory resultsAbnormalBon [facility] CenterNextworth Potassium [Moles/Vol]4.3 mmol/L3.7 - 5.3 mmol/LBon SecNextworthProtein [Mass/Vol]8.3 g/dL6.6 - 8.7 g/dLBon [facility] HealthSodium [Moles/Vol]143 mmol/L136 - 145 mmol/LBon [facility] HospitalUrea nitrogen [Mass/Vol]27 mg/dL High8 - 23 mg/dLBon [facility] HealthUrea nitrogen/Creatinine [Mass ratio]21 mg/mgHigh9 - 20Bon [facility] HospitalCT ABDOMEN PELVIS W IV CONTRASTon [id number] ABDOMEN PELVIS W IV CONTRASTNormalMerSaint Francis Hospital & Medical Center Abdomen and Pelvis W contrast Sky . Diffuse small bowel dilation. There is no true transition point. 2. Abrupt transition in the transverse colon. A mass is not appreciated. 3. Appearance of the left kidney is unchanged. MHPN RIS CONSOLIDATEDEXAMINATION: CT OF THE ABDOMEN AND PELVIS WITH CONTRAST 04/19/2024 2:58 pm TECHNIQUE: CT of the abdomen and pelvis was performed with the administration of intravenous contrast. Multiplanar reformatted images are provided for review. Automated exposure control, iterative reconstruction, and/or weight based adjustment of the mA/kV was utilized to reduce the radiation dose to as low as reasonably achievable. COMPARISON: 02/02/2024 HISTORY: ORDERING SYSTEM PROVIDED HISTORY: Vomiting history of small bowel obstruction TECHNOLOGIST PROVIDED HISTORY: Vomiting history of small bowel obstruction Decision Support Exception - unselect if not a suspected or confirmed emergency medical condition->Emergency Medical Condition (MA) FINDINGS: Lower chest: Heart size is normal. Lungs are bibasilar atelectasis. Liver: Liver is normal density. No enhancing masses. Normal enhancement of the intrahepatic vasculature. Spleen: Normal size. No enhancing masses Pancreas: No enhancing masses. No ductal dilation. No adjacent fatty stranding. Gallbladder no calcified stones or sludge. No pericholecystic fluid. No wall thickening. Bile ducts: No biliary ductal dilation Adrenals: The adrenal glands are unremarkable Kidneys: Kidneys are normal in appearance. No hydronephrosis. No enhancing masses. Norenal stones. Appearance of the left kidney is unchanged. Calcified capsule in the subcapsular collection. The fluid collection is not showing enhancement GI: Stomach is largely distended and filled with fluid. Diffuse small bowel dilation. The distal small bowel is mildly decompressed but there is no true transition point. Fluid in the colon. Abrupt transition in the transverse colon but a mass is not appreciated. There is a segment of the transverse colon is decompressed and the colon tear proximal to this is dilated and filled with gas. Gas and small amount of feces are seen in the remainder of the colon. But the colon is predominately decompressed. Is tortuous. Mesentery: No enlarged lymphadenopathy. No free fluid. No free gas. Aorta: Aorta is of normal size. Negative for dissection. IVC is diffusely flattened which may indicate dehydration..Celiac axis and SMA are patent. Portal vein is patent. PELVIS GI: No small bowel dilation. No colonic wall thickening. No enlarged lymphadenopathy. no free fluid in the pelvis. : The bladder is unremarkable in appearance. No large mass. Prostate is not enlarged. Phleboliths in the pelvis. Osseous: Spondylosis.. Old transverse process fractures. Old rib fractures. [facility] Marleny Taylor MD - 04/19/2024 EXAMINATION: CT OF THE ABDOMEN AND PELVIS WITH CONTRAST 04/19/2024 2:58 pm TECHNIQUE: CT of the abdomen and pelvis was performed with the administration of intravenous contrast. Multiplanar reformatted images are provided for review. Automated exposure control, iterative reconstruction, and/or weight based adjustment of the mA/kV was utilized to reduce the radiation dose to as low as reasonably achievable. COMPARISON: 02/02/2024 HISTORY: ORDERING SYSTEM PROVIDED HISTORY: Vomiting history of small bowel obstruction TECHNOLOGIST PROVIDED HISTORY: Vomiting history of small bowel obstruction Decision Support Exception - unselect if not a suspected or confirmed emergency medical condition->Emergency Medical Condition (MA) FINDINGS: Lower chest: Heart size is normal. Lungs are bibasilar atelectasis. Liver: Liver is normal density. No enhancing masses. Normal enhancement of the intrahepatic vasculature. Spleen: Normal size. No enhancing masses Pancreas: No enhancing masses. No ductal dilation. No adjacent fatty stranding. Gallbladder no calcified stones or sludge. No pericholecystic fluid. No wall thickening. Bile ducts: No biliary ductal dilation Adrenals: The adrenal glands are unremarkable Kidneys: Kidneys are normal in appearance. No hydronephrosis. No enhancing masses. Norenal stones. Appearance of the left kidney is unchanged. Calcified capsule in the subcapsular collection. The fluid collection is not showing enhancement GI: Stomach is largely distended and filled with fluid. Diffuse small bowel dilation. The distal small bowel is mildly decompressed but there is no true transition point. Fluid in the colon. Abrupt transition in the transverse colon but a mass is not appreciated. There is a segment of the transverse colon is decompressed and the colon tear proximal to this is dilated and filled with gas. Gas and small amount of feces are seen in the remainder of the colon. But the colon is predominately decompressed. Is tortuous. Mesentery: No enlarged lymphadenopathy. No free fluid. No free gas. Aorta: Aorta is of normal size. Negative for dissection. IVC is diffusely flattened which may indicate dehydration..Celiac axis and SMA are patent. Portal vein is patent. PELVIS GI: No small bowel dilation. No colonic wall thickening. No enlarged lymphadenopathy. no free fluid in the pelvis. : The bladder is unremarkable in appearance. No large mass. Prostate is not enlarged. Phleboliths in the pelvis. Osseous: Spondylosis.. Old transverse process fractures. Old rib fractures. IMPRESSION: 1. Diffuse small bowel dilation. There is no true transition point. 2. Abrupt transition in the transverse colon. A mass is not appreciated. 3. Appearance of the left kidney is unchanged. [facility] CenterRadiology Study observation (narrative)Critical access hospital Abdomen and Pelvis W contrast IVOrdered By: Marleny Collins on [id number] [facility] Work Phone: Comp Metabolic Profon [id number] [Mass/Vol]4.4 g/dLNormal3.5-5.2[facility] HospitalComment on above:Performed By: #### SUMIT WHITESIDE LIP, PT ####[address] [place] [address] Lab Director: David Montez MDAlbumin/Glob Ratio1.1Normal 1.0-2.5K[facility]tering HealthComment on above:Performed By: #### SUMIT WHITESIDE LIP, PT ####[address] [place] [address] lab Director: Radha Peckline Fnep951 U/QCigc52-592 [facility] HealthComment on above:Performed By: #### CDP, CP, LIP, PT ####[address] [place] [phone] Director: David Montez MDALT [Catalytic activity/Vol]13 U/NOlqfvm73-99 [facility] HospitalComment on above:Performed By: #### CDP, CP, LIP, PT ####[address] [place] [phone] Director: David Montez MDAnion gap [Moles/Vol]14 mmol/LNormal9-16[facility]tering HealthComment on above:Performed By: #### CDP, CP, LIP, PT ####[address] [place] [address] Lab Director: David Montez MDAST [Catalytic activity/Vol]18 U/JPziqke05-59Fafss Tiffin HospitalComment on above:Performed By: #### CDP, CP, LIP, PT ####[address] [place] [address] Lab Director: David Montez MDBilirubin [Mass/Vol]0.3 mg/dLNormal0.00-1.20[facility] HospitalComment on above:Performed By: #### CDP, CP, LIP, PT ####[address] [place] [address] Lab Director: David Montez MDBUN/CRE Vsvuy79Netv1-06Thpcs Tiffin HospitalComment on above:Performed By: #### CDP, CP, LIP, PT ####[address] [place] [address] Lab Director: PATTI Peckalcium [Mass/Vol]9.9 mg/dLNormal8.6-10.4[facility] HospitalComment on above:Performed By: #### CDP, CP, LIP, PT ####[address] , [place] [address] Lab Director: David Montez MD Chloride [Moles/Vol]104 mmol/LXxwavj73-128SaufhKettering HealthComment on above: Performed By: #### CDP, CP, LIP, PT ####[address] , [place] [address] Lab Director: David Montez MDCO2 [Moles/Vol]25 mmol/KNbhlqv90-80RoinoKettering HealthComment on above:Performed By: #### MIESHA, CP, LIP, PT ####[address] [place] [address] Lab Director: PATTI Peckreatinine [Mass/Vol]1.3 mg/dLHigh0.70-1.20Kettering HealthComment on above:Performed By: #### MIESHA, CP, LIP, PT ####[address] , [place] 9[address]83 Lab Director: David Montez MDGFR/1.73 sq M.predicted among non-blacks MDRD (S/P/Bld) [Vol rate/Area]60 mL/min/{1.73_m2} Low>60Kettering HealthComment on above:Result Comment: These results are not intended for use in patients <18 years of age.eGFR resultsare calculated without a race factor using the 2020 CKD-EPI equation.Careful clinical correlation is recommended, particularly when comparing to results calculated using previous equations.The CKD-EPI equation is less accurate in patients with extremes of muscle mass, extra-renal metabolism of creatine, excessive creatine ingestion, or following therapy that affects renal tubular secretion.Performed By: #### CDP, CP, LIP, PT ####[address] , [place] 49[address] Lab Director: David Montez MDGlucose [Mass/Vol] 111 mg/yKHqsj69-62Sutbx Windham HospitalComment on above:Performed By: #### CDP, CP, LIP, PT ####[address] [place] [address] Lab Director: VONDA Peckotassium [Moles/Vol]4.3 mmol/L Normal3.7-5.3MercNationwide Children's Hospital HospitalComment on above:Performed By: #### CDP, CP, LIP, PT ####[address] [place] [address] Lab Director: David Montez MDProtein [Mass/Vol]8.3 g/dLNormal 6.6-8.7Kettering HealthComment on above:Performed By: #### CDP, CP, LIP, PT ####[address] [place] [address] Lab Director: David Montez MDSodium [Moles/Vol]143 mmol/L Djytlt621-089BcnwnKettering HealthComment on above:Performed By: #### CDP, CP, LIP, PT ####[address] [place] [address] Lab Director: Pavel ePck nitrogen [Mass/Vol]27 mg/dL High8-23Kettering HealthComment on above:Performed By: #### CDP, CP, LIP, PT ####[address] [place] [address] Lab Director: David Montez MDLipaseon 13-08-3859Eyxeto [Catalytic activity/Vol]34 U/L13 - 60 U/LBon [facility] HospitalLipase [Catalytic activity/Vol]34 U/CLdnyac42-12SgutvKettering HealthComment on above: Performed By: #### CDP, CP, LIP, PT ####[address] [place] [address] Lab Director: Hardik Peck Panel Informationon 18-54-5444[facility] 21-74-4828RRW Coag (PPP) [Relative time]1.1 {INR}NormalMercy Windham HospitalComment on above:Result Comment: Therapeutic Range: Moderate Anticoagulant Intensity: INR = 2.0-3.0 High Anticoagulant Intensity: INR = 2.5-3.5Performed By: #### CDP, CP, LIP, PT ####[facility] [place] [phone] Director: SIMON Peck Coag (PPP) [Time]14.0 uBnauyg05.7-14.1Mercy [facility]ham HospitalComment on above:Performed By: #### CDP, CP, LIP, PT ####[facility] [place] , [place] 4359383 lab Director: Sulaiman Peck XR Chest AP single viewon 04-19-2024 Hypoventilatory chest with no acute findings. [facility] CONSOLIDATEDEXAMINATION: ONE XRAY VIEW OF THE CHEST 04/19/2024 10:10 am COMPARISON: 02/03/2024. HISTORY: ORDERING SYSTEM PROVIDED HISTORY: Coarse breath sounds following emesis TECHNOLOGIST PROVIDED HISTORY: Coarse breath sounds following emesis FINDINGS: Lung volumes are small. The cardiomediastinal silhouette pulmonary vessels are unremarkable. The patient is rotated to the left. No airspace consolidation or pleural effusion is identified. [facility] Uma Shoemaker MD - 04/19/2024 EXAMINATION: ONE XRAY VIEW OF THE CHEST 04/19/2024 10:10 am COMPARISON: 02/03/2024. HISTORY: ORDERING SYSTEM PROVIDED HISTORY: Coarse breath sounds following emesis TECHNOLOGIST PROVIDED HISTORY: Coarse breath sounds following emesis FINDINGS: Lung volumes are small. The cardiomediastinal silhouette pulmonary vessels are unremarkable. The patient is rotated to the left. No airspace consolidation or pleural effusion is identified. IMPRESSION: Hypoventilatory chest with no acute findings. [facility] CenterRadiology Study observation (narrative)[facility] XR Chest AP single viewOrdered By: Uma Sneed on [id number] [facility] Work Phone: [phone]-BBYbx 83-34-2071ZQW Coag (PPP) [Relative time] 1.1 {INR}[facility] Document AgilitySt. Luke'S Hospitalment on above: Therapeutic Range: Moderate Anticoagulant Intensity: INR = 2.0-3.0 High Anticoagulant Intensity: INR = 2.5-3.5 PT Coag (PPP) [Time]14.0 sBon Document AgilityBon Verde Valley Medical CenterNextworthXR ABDOMEN FOR NG/OG/NE TUBE PLACEMENTon [id number] ABDOMEN FOR NG/OG/NE TUBE PLACEMENTNormalPrem[facility] HospitalGastric decompression tube tip overlies the gastric body [facility] CONSOLIDATEDEXAMINATION: ONE SUPINE XRAY VIEW(S) OF THE ABDOMEN 04/19/2024 2:47 pm COMPARISON: None. HISTORY: ORDERING SYSTEM PROVIDED HISTORY: Confirmation of course of NG/OG/NE tube and location of tip of tube TECHNOLOGIST PROVIDED HISTORY: Confirmation of course of NG/OG/NE tube and location of tip of tube Portable?->Yes FINDINGS: Enteric tube tip overlies the gastric body. Pathologically dilated loops of small bowel in the imaged abdomen consistent with obstruction. [facility] Orlin Diego MD - 04/19/2024 EXAMINATION: ONE SUPINE XRAY VIEW(S) OF THE ABDOMEN 04/19/2024 2:47 pm COMPARISON: None. HISTORY: ORDERING SYSTEM PROVIDED HISTORY: Confirmation of course of NG/OG/NE tube and location of tip of tube TECHNOLOGIST PROVIDED HISTORY: Confirmation of course of NG/OG/NE tube and location of tip of tube Portable?->Yes FINDINGS: Enteric tube tip overlies the gastric body. Pathologically dilated loops of small bowel in the imaged abdomen consistent with obstruction. IMPRESSION: Gastric decompression tube tip overlies the gastric body [facility] Document AgilityRadiology Study observation (narrative)[facility] Document AgilityXR ABDOMEN FOR NG/OG/NE TUBE PLACEMENTOrdered By: Orlin Snow on [id number] Document [employer]ility Work Phone: XR CHEST PORTABLEon 10-58-9700BW CHEST PORTABLENormal [facility] HospitalBasic Metab w/rfx MGon 55-62-8166Klwvi gap [Moles/Vol]7 mmol/LLow9-16[facility] HospitalComment on above:Performed By: #### BMPX, CDP ####[address] [place] [phone] Director: David Montez MDBUN/CRE Vzmib72Makj0-53LjfeaKettering Health Comment on above:Performed By: #### BMPX, CDP ####[address] [place] [address] Lab Director: PATTI Peckalcium [Mass/Vol]8.5 mg/dLLow8.6-10.4Kettering HealthComment on above: Performed By: #### BMPX, CDP ####[address] , [place] [address])[phone] Director: PATTI Peckhloride [Moles/Vol]110 mmol/AAerc70-618Vzlqi [facility] HospitalComment on above:Performed By: #### BMPX, CDP ####[address] [place] [address] Lab Director: PATTI PeckO2 [Moles/Vol]25 mmol/HEjtoxh51-00Mqzjx [facility] HospitalComment on above:Performed By: #### BMPX, CDP ####[address] [place] [address] Lab Director: PATTI Peckreatinine [Mass/Vol]0.7 mg/dLNormal 0.70-1.20[facility] HospitalComment on above:Performed By: #### BMPX, CDP ####[address] , [place] [phone] Director: David Montez MDGFR/1.73 sq M.predicted among non-blacks MDRD (S/P/Bld) [Vol rate/Area]mL/min/{1.73_m2}Normal>60MerCleveland Clinic Fairview Hospitalfin HospitalComment on above:Result Comment: These results are not intended for use in patients <18 years of age.eGFR resultsare calculated without a race factor using the 2020 CKD-EPI equation.Careful clinical correlation is recommended, particularly when comparing to results calculated using previous equations.The CKD-EPI equation is less accurate in patients with extremes of muscle mass, extra-renal metabolism of creatine, excessive creatine ingestion, or following therapy that affects renal tubular secretion.Performed By: #### BMPX, CDP ####[address] , [place] 385[address]83 Lab Director: David Montez MDGlucose [Mass/Vol]107 mg/uBIrmt13-66JoobxLouis Stokes Cleveland VA Medical CenterComment on above:Performed By: #### BMPX, CDP ####[address] [place] [id number] Lab Director: VONDA ePckotassium [Moles/Vol]3.8 mmol/LNormal3.7-5.3MLouis Stokes Cleveland VA Medical CenterComment on above: Performed By: #### BMPX, CDP ####[address] [place] [address] Lab Director: GIN Peckodium [Moles/Vol]142 mmol/TQfowmj642-346BcqrxKettering HealthComment on above: Performed By: #### UMERX, CDP ####[address] , [place] 3490283 Lab Director: David Montez MDUrea nitrogen [Mass/Vol]15 mg/dLNormal8-23Kettering HealthComment on above:Performed By: #### BMPX, CDP ####[address] , [place] 55[address] Lab Director: David Montez MDBasi Metabolic Panel w/ Reflex to MGon 51-07-1517Cuvor gap [Moles/Vol]7 mmol/LLow9 - 16 mmol/LBon Secours [facility] Health Anderson HospitalCalcium [Mass/Vol]8.5 mg/dLLow8.6 - 10.4 mg/dLBon SecThe University of Toledo Medical CenterChloride [Moles/Vol]110 mmol/LHigh98 - 107 mmol/LBon [facility] CO2 [Moles/Vol]25 mmol/L20 - 31 mmol/LBon SecThe University of Toledo Medical CenterCreatinine [Mass/Vol]0.7 mg/dL0.70 - 1.20 mg/dLBon [facility] HospitalEst, Glom Filt Rate- PINFBon [facility] HospitalComment on above: These results are not intended [...] therapy that affects renal tubular secretion. Glucose [Mass/Vol]107 mg/xDAmpr62 - 99 mg/dLBon [facility] Interpretation and review of laboratory resultsAbnormalBon [facility] Potassium [Moles/Vol]3.8 mmol/L3.7 - 5.3 mmol/LBon [facility] HospitalSodium [Moles/Vol]142 mmol/L136 - 145 mmol/LBon [facility] HospitalUrea nitrogen [Mass/Vol]15 mg/dL8 - 23 mg/dLBon [facility] HospitalUrea nitrogen/Creatinine [Mass ratio]21 mg/mgHigh9 - 20Bon [facility] HospitalBon [facility] CBC auto differentialon [id number] (Bld) [#/Vol]0.03 10*3/uLBon [facility] Valley Medical Centerours [facility] Anderson HospitalBasophils/100 WBC (Bld)0 %0 - 2 %[facility] Eosinophils (Bld) [#/Vol]0.21 10*3/uLBon Secours Mercy Health Anderson HospitalEosinophils/100 WBC (Bld)3 %1 - 4 %[facility] Medical CenterErythrocyte distribution width (RBC) [Ratio]12.0 %11.8 - 14.4 %[facility] Medical CenterHematocrit (Bld) [Volume fraction]32.6 %Low40.7 - 50.3 %[facility] CenterHemoglobin (Bld) [Mass/Vol]10.7 g/dLLow13.0 - 17.0 g/dLBon SecThe University of Toledo Medical CenterImmature granulocytes (Bld) [#/Vol][facility] HospitalImmature granulocytes/100 WBC (Bld)0 %0[facility] CenterInterpretation and review of laboratory results AbnormalBon [facility] HospitalLymphocytes/100 WBC (Bld)16 %Low24 - 43 %Bon SecThe University of Toledo Medical CenterLymphocytes/100 WBC (Bld)1.19 %[facility] HospitalH (RBC) [Entitic mass]33.3 pg25.2 - 33.5 pgSentara Martha Jefferson HospitalHC (RBC) [Mass/Vol]32.8 g/dL28.4 - 34.8 g/dLBon [facility] Health CenterV (RBC) [Entitic vol]101.6 fL82.6 - 102.9 fLSentara Rmh Medical CenterMonocytes/100 WBC (Bld)8 %3 - 12 %[facility] CenterMonocytes/100 WBC (Bld)0.57 %[facility] CenterNeutrophils/100 WBC (Bld)73 %High36 - 65 %[facility] Nucleated RBC/100 WBC (Bld) [Ratio]0.0 %0.0 per 100 WBCSentara Rmh Medical Center Platelet mean volume (Bld) [Entitic vol]8.9 fL8.1 - 13.5 fLSentara Rmh Medical CenterPlatelets (Bld) [#/Vol]163 10*3/uLBon SecThe University of Toledo Medical CenterRBC (Bld) [#/Vol]3.21 10*6/uLLow4.21 - 5.77 m/uLSentara Rmh Medical CenterSegmented neutrophils/100 WBC (Bld)5.48 %[facility] CenterWBC other (Bld) [#/Vol] 7.5Bon SecAscension Columbia Saint Mary's HospitalCBC with Diffon 02-06-2024 Abs. Basophil0.03 k/uLNormal0.00-0.20[facility]uthers HospitalComment on above: Performed By: #### BMPX, CDP ####[address] [place] [address] Lab Director: David Montez MD Abs.Imm.Granulocyte<0.40Qqclks8.00-0.30[facility] HospitalComment on above: Performed By: #### BMPX, CDP ####[address] [place] [address] Lab Director: Jaret Peck.Neutrophil (Seg)5.48 k/uLNormal1.50-8.10[facility] HospitalComment on above:Performed By: #### BMPX, CDP ####[address] [place] [address] Lab Director: David Montez MDBasophils/100 WBC (Bld)0 % Normal0-2MLouis Stokes Cleveland VA Medical Center HospitalComment on above:Performed By: #### BMPX, CDP ####[address] , [place] [phone] Director: David Montez MDEosinophils (Bld) [#/Vol]0.21 10*3/uLNormal 0.00-0.44[facility] HospitalComment on above:Performed By: #### BMPX, CDP ####[address] , [place] [phone] Director: MARISOL Peckosinophils/100 WBC (Bld)3 %Normal1-4[facility] HospitalComment on above:Performed By: #### BMPX, CDP ####[address] [place] [address] Lab Director: David Montez MDErythrocyte distribution width (RBC) [Ratio]12.0 %Normal 11.8-14.4[facility] HospitalComment on above:Performed By: #### BMPX, CDP ####[address] [place] [phone] Director: David Montez MDHematocrit (Bld) [Volume fraction]32.6 %Low 40.7-50.3Mer[facility] Caruthers HospitalComment on above:Performed By: #### BMPX, CDP ####[address] [place] [phone] Director: David Montez MDHemoglobin (Bld) [Mass/Vol]10.7 g/dLLow 13.0-17.0Kettering HealthComment on above:Performed By: #### BMPX, CDP ####[address] [place] [phone] Director: Mahsa Peckmature granulocytes/100 WBC (Bld)0 %Normal0 Kettering HealthComment on above:Performed By: #### BMPX, CDP ####[address] [place] [address] Lab Director: Luis Peckmphocytes (Bld) [#/Vol]1.19 10*3/uLNormal1.10-3.70 [facility] HealthComment on above:Performed By: #### BMPX, CDP ####[address] [place] [address] Lab Director: Luis Peckmphocytes/100 WBC (Bld)16 %Rjp01-63GqypnKettering HealthComment on above:Performed By: #### BMPX, CDP ####[address] , [place] 09[address] Lab Director: DUKE PeckCH (RBC) [Entitic mass]33.3 mwYxcftj31.2-33.5[facility] Comment on above:Performed By: #### BMPX, CDP ####[address] [place] [address] Lab Director: DUKE PeckCHC (RBC) [Mass/Vol]32.8 g/qVLgtjyd13.4-34.8K[facility]tering HealthComment on above:Performed By: #### BMPX, CDP ####[address] , [place] [phone] Director: DUKE PeckCV (RBC) [Entitic vol]101.6 aPFlzoll67.6-102.9K[facility]tering HealthComment on above: Performed By: #### BMPX, CDP ####[address] [place] [address] Lab Director: DUKE Peckonocytes (Bld) [#/Vol]0.57 10*3/uLNormal0.10-1.20K[facility]tering HealthComment on above: Performed By: #### BMPX, CDP ####[address] , [place] [address])[phone] Director: DUKE Peckonocytes/100 WBC (Bld)8 %Normal3-12K[facility]tering HealthComment on above:Performed By: #### BMPX, CDP ####[address] , [place] [address])[phone] Director: David Montez MDNeutrophil (Seg)73 %Ejmu86-00 [facility] HospitalComment on above:Performed By: #### BMPX, CDP ####[address] , [place] 3573283 Lab Director: David Montez MDNRBC Automated0.0 per 100 WBCNormal0.0[facility] HospitalComment on above:Performed By: #### BMPX, CDP ####[address] , [place] [phone] Director: Maria Luisa Peck mean volume (Bld) [Entitic vol]8.9 fLNormal8.1-13.5MerGreene Memorial Hospital HospitalComment on above:Performed By: #### BMPX, CDP ####[address] [place] [address] Lab Director: Dacia Peck (Bld) [#/Vol]163 10*3/jAQgyapj108-187Euvct [facility] HospitalComment on above:Performed By: #### BMPX, CDP ####[address] [place] [address] Lab Director: RONNIE Peck (Bld) [#/Vol]3.21 10*6/uLLow4.21-5.77[facility] HospitalComment on above:Performed By: #### BMPX, CDP ####[address] , [place] [phone] Director: CELINA Peck (Bld) [#/Vol]7.5 10*3/uLNormal3.5-11.3[facility]ut[facility] HospitalComment on above: Performed By: #### BMPX, CDP ####[address] [place] [address]([facility])[phone] Director: Sangeetha Peck Metab w/rfx MGon 32-29-9172Srpuh gap [Moles/Vol]11 mmol/LNormal9-16[facility] Comment on above:Performed By: #### BMPX, CDP ####[address] , [place] [phone] Director: STUART Peck/CRE Dnega01Qsuv8-72Dkdvy [facility] HospitalComment on above:Performed By: #### BMPX, CDP ####[address] , [place] 95[address]83 Lab Director: PATTI Peckalcium [Mass/Vol]8.7 mg/dL Normal8.6-10.4K[facility]tering HealthComment on above:Performed By: #### BMPX, CDP ####[address] [place] [address] Lab Director: PATTI Peckhloride [Moles/Vol]111 mmol/LHigh 98-107K[facility]tering HealthComment on above:Performed By: #### BMPX, CDP ####[address] [place] [phone] Director: David Montez MDCO2 [Moles/Vol]24 mmol/GTjyukj76-89QoqxlKettering HealthComment on above:Performed By: #### BMPX, CDP ####[address] [place] [address] Lab Director: PATTI Peckreatinine [Mass/Vol]0.7 mg/dLNormal0.70-1.20K[facility]tering HealthComment on above:Performed By: #### BMPX, CDP ####[address] [place] [address] Lab Director: David Montez MDGFR/1.73 sq M.predicted among non-blacks MDRD (S/P/Bld) [Vol rate/Area]mL/min/{1.73_m2}Normal>60K[facility] HealthComment on above:Result Comment: These results are not intended for use in patients <18 years of age.eGFR resultsare calculated without a race factor using the 2020 CKD-EPI equation.Careful clinical correlation is recommended, particularly when comparing to results calculated using previous equations.The CKD-EPI equation is less accurate in patients with extremes of muscle mass, extra-renal metabolism of creatine, excessive creatine ingestion, or following therapy that affects renal tubular secretion.Performed By: #### BMPX, CDP ####[address] , [place] 9[address]683 Lab Director: David Montez MDGlucose [Mass/Vol]83 mg/eABacgfm95-86QlfykLouis Stokes Cleveland VA Medical CenterComment on above:Performed By: #### BMPX, CDP ####[address] , [place] 605[address]83 Lab Director: VONDA Peckotassium [Moles/Vol]3.6 mmol/LLow3.7-5.3MLouis Stokes Cleveland [facility] Center HospitalComment on above:Performed By: #### BMPX, CDP ####[address] , [place] 199[address]83 Lab Director: GIN Peckodium [Moles/Vol] 146 mmol/ZIqmj545-548FdxauKettering HealthComment on above:Performed By: #### BMPX, CDP ####[address] , [place] 17[address] Lab Director: David Montez MDUrea nitrogen [Mass/Vol]26 mg/dL High8-23Kettering HealthComment on above:Performed By: #### BMPX, CDP ####[address] , [place] [phone] Director: David Montez MDBasaint elizabeth hebron Metabolic Panel w/ Reflex to MGon 00-14-7698Hihrs gap [Moles/Vol]11 mmol/L9 - 16 mmol/LBon [facility] Calcium [Mass/Vol]8.7 mg/dL8.6 - 10.4 mg/dLBon [facility] HospitalChloride [Moles/Vol]111 mmol/LHigh98 - 107 mmol/LBon [facility] HospitalCO2 [Moles/Vol] 24 mmol/L20 - 31 mmol/LBon [facility] HospitalCreatinine [Mass/Vol]0.7 mg/dL 0.70 - 1.20 mg/dLBon [facility] HospitalEst, Glom Filt Rate- PINFBon [facility] HospitalComment on above: These results are not intended [...] therapy that affects renal tubular secretion. Glucose [Mass/Vol]83 mg/dL74 - 99 mg/dLBon [facility] HospitalInterpretation and review of laboratory resultsAbnormalBon [facility] HospitalPotassium [Moles/Vol]3.6 mmol/LLow3.7 - 5.3 mmol/LBon [facility] HospitalSodium [Moles/Vol]146 mmol/QQaqw494 - 145 mmol/LBon [facility] HospitalUrea nitrogen [Mass/Vol]26 mg/dLHigh8 - 23 mg/dLBon [facility] HospitalUrea nitrogen/Creatinine [Mass ratio]37 mg/mgHigh9 - 20Bon [facility] HospitalCBC auto differentialon 56-09-1991Mybzvccct (Bld) [#/Vol] 0.04 10*3/uLBon [facility] HospitalBasophils/100 WBC (Bld)0 %0 - 2 %[facility] CenterEosinophils (Bld) [#/Vol]0.14 10*3/uLBon [facility] Eosinophils/100 WBC (Bld)1 %1 - 4 %[facility] Medical CenterErythrocyte distribution width (RBC) [Ratio]12.2 %11.8 - 14.4 %[facility] Hematocrit (Bld) [Volume fraction]34.5 %Low40.7 - 50.3 %[facility] Hemoglobin (Bld) [Mass/Vol]11.3 g/dLLow13.0 - 17.0 g/dLBon [facility] Immature granulocytes (Bld) [#/Vol]0.05 10*3/uLBon [facility] HospitalImmature granulocytes/100 WBC (Bld)1 %Tovf8Plv [facility] HospitalInterpretation and review of laboratory resultsAbnormalSentara Rmh Medical CenterLymphocytes/100 WBC (Bld)13 %Low24 - 43 %[facility] Medical CenterLymphocytes/100 WBC (Bld)1.39 %[facility] HospitalH (RBC) [Entitic mass]32.9 pg25.2 - 33.5 pgSentara Martha Jefferson HospitalHC (RBC) [Mass/Vol]32.8 g/dL28.4 - 34.8 g/dLBon [facility] CenterV (RBC) [Entitic vol]100.6 fL82.6 - 102.9 fLSentara Rmh Medical Center Monocytes/100 WBC (Bld)8 %3 - 12 %[facility] CenterMonocytes/100 WBC (Bld)0.86 %[facility] Medical CenterNeutrophils/100 WBC (Bld)77 %High36 - 65 %[facility] Medical CenterNucleated RBC/100 WBC (Bld) [Ratio]0.0 %0.0 per 100 WBCSentara Rmh Medical CenterPlatelet mean volume (Bld) [Entitic vol]8.8 fL8.1 - 13.5 fL [facility] Medical CenterPlatelets (Bld) [#/Vol]180 10*3/uLBon [facility] HospitalRBC (Bld) [#/Vol]3.43 10*6/uLLow4.21 - 5.77 m/uLSentara Rmh Medical Center Segmented neutrophils/100 WBC (Bld)8.10 %[facility] Medical CenterWBC other (Bld) [#/Vol]10.6Bon [facility] HospitalCBC with Diffon [id number]. Basophil0.04 k/uLNormal0.00-0.20[facility] HealthComment on above:Performed By: #### BMPX, CDP ####[facility] [place] [address] lab Director: David Montez MD Abs.Imm.Granulocyte0.05 k/uLNormal0.00-0.30MerGaylord HospitalComment on above:Performed By: #### BMPX, CDP ####[address] , [place] [address])[phone] Director: David Montez MD Abs.Neutrophil (Seg)8.10 k/uLNormal1.50-8.10[facility] HospitalComment on above:Performed By: #### BMPX, CDP ####[address] , [place] [address])[phone] Director: David Montez MD Basophils/100 WBC (Bld)0 %Normal0-2Msumma healthy Caruthers HospitalComment on above: Performed By: #### BMPX, CDP ####[address] , [place] [address])[phone] Director: David Montez MDEosinophils (Bld) [#/Vol]0.14 10*3/uLNormal0.00-0.44[facility] HospitalComment on above: Performed By: #### BMPX, CDP ####[address] , [place] [address])[phone] Director: David Montez MDEosinophils/100 WBC (Bld)1 %Normal1-4K[facility]tering HealthComment on above:Performed By: #### BMPX, CDP ####[address] , [place] [address])[phone] Director: David Montez MDErythrocyte distribution width (RBC) [Ratio]12.2 %Rarmii26.8-14.4[facility] HospitalComment on above: Performed By: #### BMPX, CDP ####[address] [place] [id number])[phone] Director: David Montez MDHematocrit (Bld) [Volume fraction]34.5 %Low40.7-50.3Mer[facility] Caruthers HospitalComment on above: Performed By: #### BMPX, CDP ####[address] , [place] [address] Lab Director: David Montez MDHemoglobin (Bld) [Mass/Vol]11.3 g/dLLow13.0-17.0[facility] HospitalComment on above:Performed By: #### BMPX, CDP ####[address] , [facility]83 Lab Director: Mahsa Peckmature granulocytes/100 WBC (Bld)1 %Ohkw2Erpmd [facility] HospitalComment on above: Performed By: #### BMPX, CDP ####[address] , [facility]83 Lab Director: David Montez MDLymphocytes (Bld) [#/Vol]1.39 10*3/uLNormal1.10-3.70[facility] Caruthers HospitalComment on above: Performed By: #### BMPX, CDP ####[address] , [facility]83 Lab Director: Luis Peckmphocytes/100 WBC (Bld)13 %Iqm34-33Dnzbp [facility] HospitalComment on above:Performed By: #### BMPX, CDP ####[address] , [facility]83 Lab Director: DUKE PeckCH (RBC) [Entitic mass]32.9 pg Supqem41.2-33.5MerGre[facility] Hospital HospitalComment on above:Performed By: #### BMPX, CDP ####[address] , [place] [id number] Lab Director: DUKE PeckCHC (RBC) [Mass/Vol]32.8 g/dLNormal 28.4-34.8[facility] Hospital HospitalComment on above:Performed By: #### BMPX, CDP ####[address] [place] [phone] Director: DUKE PeckCV (RBC) [Entitic vol]100.6 fLNormal 82.6-102.9[facility] HospitalComment on above:Performed By: #### BMPX, CDP ####[address] [place] [phone] Director: DUKE Peckonocytes (Bld) [#/Vol]0.86 10*3/uLNormal 0.10-1.20[facility] HospitalComment on above:Performed By: #### BMPX, CDP ####[address] , [place] [phone] Director: DUKE Peckonocytes/100 WBC (Bld)8 %Normal3-12[facility] HospitalComment on above:Performed By: #### BMPX, CDP ####[address] , [place] [phone] Director: David Montez MDNeutrophil (Seg)77 %Zolt26-20Agxtk [facility] HospitalComment on above:Performed By: #### BMPX, CDP ####[address] [place] [address] Lab Director: David Montez MDNRBC Automated0.0 per 100 WBCNormal0.0[facility] HospitalComment on above:Performed By: #### BMPX, CDP ####[address] [place] [address] Lab Director: VONDA Pecklatelet mean volume (Bld) [Entitic vol]8.8 fLNormal8.1-13.5[facility] HospitalComment on above:Performed By: #### BMPX, CDP ####[address] , [place] [address] [facility] Director: Dacia Peck ([facility]) [#/Vol]180 10*3/nFRzxztb716-149Dnjvx [facility] HospitalComment on above: Performed By: #### BMPX, CDP ####[address] , [place] 75[address]83 lab Director: RONNIE Peck ([facility]) [#/Vol] 3.43 10*6/uLLow4.21-5.77[facility] HospitalComment on above:Performed By: #### BMPX, CDP ####[address] [place] [address] lab Director: HOME Peck ([facility]) [#/Vol]10.6 10*3/uL Normal3.5-11.3[facility] Caruthers HospitalComment on above:Performed By: #### BMPX, CDP ####[address] , [place] [address] lab Director: KIMBERLY Peck SMALL BOWEL FOLLOW THROUGH ONLYon [id number] SMALL BOWEL FOLLOW THROUGH Channing HomealKettering HealthFindings above demonstrate a slightly delayed transit time to the terminal ileum. Overall, findings can be seen with ileus or partial small bowel obstruction. [facility] RIS CONSOLIDATEDEXAMINATION: SMALL BOWEL FOLLOW THROUGH SERIES 02/05/2024 TECHNIQUE: Small bowel follow through series was performed with overhead images. FLUOROSCOPY DOSE AND TYPE: Dose: 0 Time: 0 COMPARISON: CT abdomen pelvis from 02/02/2024 HISTORY: ORDERING SYSTEM PROVIDED HISTORY: sbo TECHNOLOGIST PROVIDED HISTORY: sbo 69-year-old male with history of small-bowel obstruction FINDINGS: Para Educator image of the abdomen demonstrates an NG tube with distal tip subjacent to the left hemidiaphragm likely in the fundus of the stomach. Gaseous distention of the colon. Gas is scattered throughout small bowel loops. Left-sided pelvic phleboliths. At 15 minutes, contrast is seen within the stomach and proximal small bowel/jejunal loops. At 30 minutes, contrast is seen within the stomach and jejunal loops. At 45 minutes, contrast is seen within the stomach in jejunal loops. At 1 hour, contrast is migrated into the small bowel. Residual contrast is seen in the stomach. At 2 hours, contrast is migrated throughout the entirety of the small bowel and seen within the ascending colon. There is slightly delayed transit time to the terminal ileum. No focal abnormality or stricture identified. Devaughn Horta MD - 02/05/2024 EXAMINATION: SMALL BOWEL FOLLOW THROUGH SERIES 02/05/2024 TECHNIQUE: Small bowel follow through series was performed with overhead images. FLUOROSCOPY DOSE AND TYPE: Dose: 0 Time: 0 COMPARISON: CT abdomen pelvis from 02/02/2024 HISTORY: ORDERING SYSTEM PROVIDED HISTORY: sbo TECHNOLOGIST PROVIDED HISTORY: sbo 69-year-old male with history of small-bowel obstruction FINDINGS: Para Educator image of the abdomen demonstrates an NG tube with distal tip subjacent to the left hemidiaphragm likely in the fundus of the stomach. Gaseous distention of the colon. Gas is scattered throughout small bowel loops. Left-sided pelvic phleboliths. At 15 minutes, contrast is seen within the stomach and proximal small bowel/jejunal loops. At 30 minutes, contrast is seen within the stomach and jejunal loops. At 45 minutes, contrast is seen within the stomach in jejunal loops. At 1 hour, contrast is migrated into the small bowel. Residual contrast is seen in the stomach. At 2 hours, contrast is migrated throughout the entirety of the small bowel and seen within the ascending colon. There is slightly delayed transit time to the terminal ileum. No focal abnormality or stricture identified. IMPRESSION: Findings above demonstrate a slightly delayed transit time to the terminal ileum. Overall, findings can be seen with ileus or partial small bowel obstruction. [facility] CenterRadiology Study observation (narrative)[facility] SMALL BOWEL FOLLOW THROUGH ONLYOrdered By: Devaughn Merino on 20-39-4514Lyn [facility] Work Phone: Basic Metab w/rfx MGon 27-52-8300Ybsvk gap [Moles/Vol] 11 mmol/LNormal9-16K[facility]tering HealthComment on above:Performed By: #### CDP, BMPX ####[facility] [address] [place] [address] Lab Director: David Montez MDBUN/CRE Bnmjd92Zpyp4-41Zsfsr [facility] HospitalComment on above:Performed By: #### CDP, BMPX ####[address] [place] [address] Lab Director: PATTI Peckalcium [Mass/Vol]8.9 mg/dLNormal8.6-10.4[facility] HospitalComment on above:Performed By: #### CDP, BMPX ####[address] [place] [address] Lab Director: PATTI Peckhloride [Moles/Vol]108 mmol/KVvny31-973Vicjx [facility] HospitalComment on above:Performed By: #### MIESHA, BMPX ####[address] [place] [address] Lab Director: David Montez MDCO2 [Moles/Vol]26 mmol/CVhjdaw10-60Vsiob [facility] HospitalComment on above:Performed By: #### MIESHA, BMPX ####[address] [place] [address] Lab Director: PATTI Peckreatinine [Mass/Vol]0.8 mg/dLNormal 0.70-1.20[facility] HospitalComment on above:Performed By: #### CDP, BMPX ####[address] , [place] [phone] Director: David Montez MDGFR/1.73 sq M.predicted among non-blacks MDRD (S/P/Bld) [Vol rate/Area]mL/min/{1.73_m2}Normal>60[facility] HospitalComment on above:Result Comment: These results are not intended for use in patients <18 years of age.eGFR resultsare calculated without a race factor using the 2020 CKD-EPI equation.Careful clinical correlation is recommended, particularly when comparing to results calculated using previous equations.The CKD-EPI equation is less accurate in patients with extremes of muscle mass, extra-renal metabolism of creatine, excessive creatine ingestion, or following therapy that affects renal tubular secretion.Performed By: #### CDP, BMPX ####[address] , [place] 27[address] Lab Director: David Montez MDGlucose [Mass/Vol]92 mg/gZOfiyii15-27EabjtLouis Stokes Cleveland VA Medical CenterComment on above:Performed By: #### CDP, BMPX ####[address] [place] [address] Lab Director: VONDA Peckotassium [Moles/Vol]3.7 mmol/LNormal3.7-5.3MLouis Stokes [facility] Center HospitalComment on above: Performed By: #### MIESHA, BMPX ####[address] [place] [address] Lab Director: GIN Peckodium [Moles/Vol]145 mmol/CNphxsy910-676GjvfqKettering HealthComment on above: Performed By: #### MIESHA, BMPX ####[address] , [place] 06[address] Lab Director: David Montez MDUrea nitrogen [Mass/Vol]23 mg/dLNormal8-23K[facility]tering HealthComment on above:Performed By: #### CDP, BMPX ####[address] , [place] [address] Lab Director: David Montez MDBasaint elizabeth [facility] Metabolic Panel w/ Reflex to MGon 74-07-2349Tqovn gap [Moles/Vol]11 mmol/L9 - 16 mmol/LBon Secours Summa Health HealthCalcium [Mass/Vol]8.9 mg/dL8.6 - 10.4 mg/dLBon Secours Summa Health Health Chloride [Moles/Vol]108 mmol/LHigh98 - 107 mmol/LBon [facility] HealthCO2 [Moles/Vol]26 mmol/L20 - 31 mmol/LBon [facility] HospitalCreatinine [Mass/Vol] 0.8 mg/dL0.70 - 1.20 mg/dLBon [facility] HospitalEst, Geovany Dait Rate- PINFBon [facility] HospitalComment on above: These results are not intended [...] therapy that affects renal tubular secretion. Glucose [Mass/Vol]92 mg/dL74 - 99 mg/dLBon [facility] HospitalInterpretation and review of laboratory resultsAbnormalBon [facility] HospitalPotassium [Moles/Vol]3.7 mmol/L3.7 - 5.3 mmol/LBon [facility] HospitalSodium [Moles/Vol] 145 mmol/L136 - 145 mmol/LBon [facility] HospitalUrea nitrogen [Mass/Vol]23 mg/dL8 - 23 mg/dLBon [facility] HospitalUrea nitrogen/Creatinine [Mass ratio]29 mg/mgHigh9 - 20Bon [facility] HospitalCBC auto differentialon [id number] (Bld) [#/Vol]0.05 10*3/uLBon [facility] HospitalBasophils/100 WBC (Bld)0 %0 - 2 %[facility] Medical CenterEosinophils (Bld) [#/Vol]0.13 10*3/uLBon Secours [facility] Health Anderson HospitalEosinophils/100 WBC (Bld)1 %1 - 4 % [facility] Medical CenterErythrocyte distribution width (RBC) [Ratio]12.3 %11.8 - 14.4 %Bon SecThe University of Toledo Medical CenterHematocrit (Bld) [Volume fraction]37.8 %Low40.7 - 50.3 %[facility] Medical CenterHemoglobin (Bld) [Mass/Vol]12.7 g/dLLow13.0 - 17.0 g/dLBon [facility] HospitalImmature granulocytes (Bld) [#/Vol]0.05 10*3/uLBon SecThe University of Toledo Medical CenterImmature granulocytes/100 WBC (Bld)0 %0[facility] Medical CenterInterpretation and review of laboratory resultsAbnormalBon [facility] HospitalLymphocytes/100 WBC (Bld)14 %Low24 - 43 %[facility] Lymphocytes/100 WBC (Bld)2.14 %[facility] HospitalH (RBC) [Entitic mass] 33.3 pg25.2 - 33.5 pgBon [facility] Health CenterHC (RBC) [Mass/Vol]33.6 g/dL28.4 - 34.8 g/dLBon [facility] Health CenterV (RBC) [Entitic vol]99.2 fL82.6 - 102.9 fL [facility] CenterMonocytes/100 WBC (Bld)7 %3 - 12 %[facility] CenterMonocytes/100 WBC (Bld)1.09 %[facility] Medical CenterNeutrophils/100 WBC (Bld)78 %High36 - 65 %[facility] CenterNucleated RBC/100 WBC (Bld) [Ratio]0.0 %0.0 per 100 WBCSentara Rmh Medical CenterPlatelet mean volume (Bld) [Entitic vol]8.7 fL8.1 - 13.5 fLSentara Rmh Medical CenterPlatelets (Bld) [#/Vol] 222 10*3/uLBon [facility] HospitalRBC (Bld) [#/Vol]3.81 10*6/uLLow4.21 - 5.77 m/uLBon [facility] HospitalSegmented neutrophils/100 WBC (Bld)12.13 %HighSentara Rmh Medical CenterWBC other (Bld) [#/Vol]15.6HighMary Washington HospitalCBC with Diffon [id number]. Basophil0.05 k/uLNormal 0.00-0.20MerGaylord HospitalComment on above:Performed By: #### CDP, BMPX ####[address] , [facility]83[facility])[phone] Director: MDAbs. LivImm.Granulocyte0.05 k/uLNormal0.00-0.30 [facility] HealthComment on above:Performed By: #### CDP, BMPX ####[address] , [place] [address])[phone] Director: Jaret Peck.Neutrophil (Seg)12.13 k/uLHigh1.50-8.10K[facility]tering HealthComment on above:Performed By: #### CDP, BMPX ####[address] [place], [place] [address])[phone] Director: David Montez MDBasophils/100 WBC (Bld)0 %Normal0-2MLouis Stokes Cleveland VA Medical Center HospitalComment on above:Performed By: #### CDP, BMPX ####[address] , [place] [address])[phone] Director: David Montez MD Eosinophils (Bld) [#/Vol]0.13 10*3/uLNormal0.00-0.44K[facility]tering HealthComment on above:Performed By: #### CDP, BMPX ####[address] , [place] [address])[phone] Director: David Montez MD Eosinophils/100 WBC (Bld)1 %Normal1-4K[facility]tering HealthComment on above: Performed By: #### CDP, BMPX ####[address] , [facility]83[facility])[phone] Director: David Montez MDErythrocyte distribution width (RBC) [Ratio]12.3 %Pdcpyr42.8-14.4[facility] on above:Performed By: #### CDP, BMPX ####[address] [place] [id number] Lab Director: David Montez MDHematocrit (Bld) [Volume fraction]37.8 %Low40.7-50.3[facility] Comment on above:Performed By: #### CDP, BMPX ####[address] , [facility]83 Lab Director: David Montez MDHemoglobin (Bld) [Mass/Vol]12.7 g/dLLow13.0-17.0[facility] HospitalComment on above:Performed By: #### CDP, BMPX ####[address] [place] [address] Lab Director: David Montez MDImmature granulocytes/100 WBC (Bld)0 %Xctepq2Nsdio [facility] HospitalComment on above: Performed By: #### MIESHA, BMPX ####[address] , [place] [address])[phone] Director: David Montez MDLymphocytes (Bld) [#/Vol]2.14 10*3/uLNormal1.10-3.70[facility] HospitalComment on above: Performed By: #### CDP, BMPX ####[address] [place], [place] [address])[phone] Director: Luis Peckmphocytes/100 WBC (Bld)14 %Qoc15-62Acdnh [facility] HospitalComment on above:Performed By: #### CDP, BMPX ####[address] , [facility]83 Lab Director: DUKE PeckCH (RBC) [Entitic mass]33.3 pg Dtibmk93.2-33.5Mer[facility] HospitalComment on above:Performed By: #### CDP, BMPX ####[address] , [facility]83 Lab Director: DUKE PeckCHC (RBC) [Mass/Vol]33.6 g/dLNormal 28.4-34.8[facility] HospitalComment on above:Performed By: #### CDP, BMPX ####[address] [place] [phone] Director: DUKE PeckCV (RBC) [Entitic vol]99.2 vSRllkpb29.6-102.9 [facility] HospitalComment on above:Performed By: #### CDP, BMPX ####[address] [place] [address] Lab Director: DUKE Peckonocytes (Bld) [#/Vol]1.09 10*3/uLNormal0.10-1.20 [facility] HospitalComment on above:Performed By: #### CDP, BMPX ####[address] , [place] [phone] Director: DUKE Peckonocytes/100 WBC (Bld)7 %Normal3-12K[facility]tering HealthComment on above:Performed By: #### CDP, BMPX ####[address] , [place] [phone] Director: David Montez MDNeutrophil (Seg)78 %Ayel90-33Jgyme [facility] HospitalComment on above: Performed By: #### CDP, BMPX ####[address] [place] [address] Lab Director: David Montez MDNRBC Automated0.0 per 100 WBCNormal0.0[facility] HospitalComment on above:Performed By: #### CDP, BMPX ####[address] [place] [address] Lab Director: VONDA Pecklatelet mean volume (Bld) [Entitic vol]8.7 fLNormal8.1-13.5[facility] HospitalComment on above:Performed By: #### CDP, BMPX ####[address] [place] [address] Lab Director: Dacia Peck (Bld) [#/Vol]222 10*3/fEQnwfwj774-002Boumm [facility] HospitalComment on above:Performed By: #### CDP, BMPX ####[address] [place] [address] Lab Director: RONNIE Peck (Bld) [#/Vol] 3.81 10*6/uLLow4.21-5.77[facility] HospitalComment on above:Performed By: #### CDP, BMPX ####[address] [place] [address] Lab Director: CELINA Peck (Bld) [#/Vol]15.6 10*3/uL High3.5-11.3[facility] Caruthers HospitalComment on above:Performed By: #### CDP, BMPX ####[address] [place] [phone] Director: CARLOS Peck 12 leadOrdered By: Lizz Modi on 41-94-4810Vxjmsi Uhzz70TXUFyq SecOnyu [facility] Attunity Work Phone: P Efjy07sigsvziGeg [employer] [facility] Work Phone: [phone]-R Xnoohowc874 msBon [employer] [facility] Work Phone: [phone]-T Wmnujwju876 msBon SecOnyu [facility] Work Phone: [phone] Khzjeytx26 msBon SecOnyu [facility] Work Phone: [phone] Calculation (Herman)436 msBon [facility] Work Phone: R [place]-17degreesBon SecOnyu [facility] Work Phone: T Oebb74agioaqgYoy [employer] Work Phone: Ventricular Fxqu48GXQOpr [employer] Work Phone: Bon [employer] Work Phone: ekG 12 leadon 24-37-9744Ygnxql sinus rhythm Minimal voltage criteria for LVH, may be normal variant ( R in aVL ) Borderline ECG ECG not diagnostic for Acute Coronary Syndrome; consider clinical findings When compared with ECG of 11-JUN-2023 11:23, Nonspecific T wave abnormality has replaced inverted T waves in Lateral leads Confirmed by LIZZ MODI ([id number]) on 02/04/2024 12:07:38 [facility] Lizz Modi MD - 02/04/2024 Normal sinus rhythm Minimal voltage criteria for LVH, may be normal variant ( R in aVL ) Borderline ECG ECG not diagnostic for Acute Coronary Syndrome; consider clinical findings When compared with ECG of 11-JUN-2023 11:23, Nonspecific T wave abnormality has replaced inverted T waves in Lateral leads Confirmed by LIZZ MODI ([id number]) on 02/04/2024 12:07:38 AM [facility] Document AgilityXR ABDOMEN (2 VIEWS)on [id number] ABDOMEN (2 VIEWS) [facility] HospitalXR ABDOMEN FOR NG/OG/NE TUBE PLACEMENTon 48-64-4928FP ABDOMEN FOR NG/OG/NE TUBE PLACEMENTNormalKettering Health1. Enteric tube in the stomach. 2. Decompression of the stomach and small bowel since prior study. [facility] RIS CONSOLIDATEDEXAMINATION: ONE SUPINE XRAY VIEW(S) OF THE ABDOMEN 02/04/2024 3:29 pm COMPARISON: Prior study at 7:37 a.m. HISTORY: ORDERING SYSTEM PROVIDED HISTORY: Confirmation of course of NG/OG/NE tube and location of tip of tube TECHNOLOGIST PROVIDED HISTORY: Confirmation of course of NG/OG/NE tube and location of tip of tube Portable?->Yes FINDINGS: Enteric tube is confirmed in the lumen of the stomach stable from prior exam. Since the prior radiograph, there has been decompression of air-filled loops of small bowel and of the stomach. Air is also seen within the visualized colon. Cardiomegaly is seen in the visualized chest. No significant skeletal finding. [facility] Andres Hernandez IV, MD - 02/04/2024 EXAMINATION: ONE SUPINE XRAY VIEW(S) OF THE ABDOMEN 02/04/2024 3:29 pm COMPARISON: Prior study at 7:37 a.m. HISTORY: ORDERING SYSTEM PROVIDED HISTORY: Confirmation of course of NG/OG/NE tube and location of tip of tube TECHNOLOGIST PROVIDED HISTORY: Confirmation of course of NG/OG/NE tube and location of tip of tube Portable?->Yes FINDINGS: Enteric tube is confirmed in the lumen of the stomach stable from prior exam. Since the prior radiograph, there has been decompression of air-filled loops of small bowel and of the stomach. Air is also seen within the visualized colon. Cardiomegaly is seen in the visualized chest. No significant skeletal finding. IMPRESSION: 1. Enteric tube in the stomach. 2. Decompression of the stomach and small bowel since prior study. [facility] CenterRadiology Study observation (narrative)[facility] SystemHarbinger Medical Bellevue HospitalXR ABDOMEN FOR NG/OG/NE TUBE PLACEMENTOrdered By: Andres Hinojosa on 77-85-4244Sue [facility] [employer] Work Phone: XR Abdomen 2 Viewson 74-99-1214Doodqrnvof dilated loops of small bowel which could represent ileus or partial small bowel obstruction. These appears slightly more prominent than in the prior study [facility] GIOVANNA CONSOLIDATEDEXAMINATION: TWO XRAY VIEWS OF THE ABDOMEN 02/04/2024 7:37 am COMPARISON: February 03, 2024 x-ray abdomen HISTORY: ORDERING SYSTEM PROVIDED HISTORY: recurrent partial sbo progress study TECHNOLOGIST PROVIDED HISTORY: recurrent partial sbo progress study FINDINGS: Enteric tube with tip and side-port in the stomach. Dilated loops of small bowel in the left abdomen measuring up to 4.7 cm appear more prominent than in the prior study. There remains gas within the colon as well. [facility] Jase Mcgee MD - 02/04/2024 EXAMINATION: TWO XRAY VIEWS OF THE ABDOMEN 02/04/2024 7:37 am COMPARISON: February 03, 2024 x-ray abdomen HISTORY: ORDERING SYSTEM PROVIDED HISTORY: recurrent partial sbo progress study TECHNOLOGIST PROVIDED HISTORY: recurrent partial sbo progress study FINDINGS: Enteric tube with tip and side-port in the stomach. Dilated loops of small bowel in the left abdomen measuring up to 4.7 cm appear more prominent than in the prior study. There remains gas within the colon as well. IMPRESSION: Persistent dilated loops of small bowel which could represent ileus or partial small bowel obstruction. These appears slightly more prominent than in the prior study [facility] CenterRadiology Study observation (narrative)[facility] Abdomen 2 ViewsOrdered By: Jase Glass on 11-66-6199Jah [facility] Work Phone: Basic Metab w/rfx MGon 12-48-2484Hldgy gap [Moles/Vol] 10 mmol/LNormal9-16[facility] HospitalComment on above:Performed By: #### CDP, BMPX ####[address] , [place] [address] Lab Director: David Montez MDBUN/CRE Ezuui86Ehof8-14IanjtKettering HealthComment on above:Performed By: #### MIESHA, BMPX ####[address] [place] [address] Lab Director: David Montez MDCalcium [Mass/Vol]9.5 mg/dLNormal8.6-10.4[facility] HospitalComment on above:Performed By: #### MIESHA, BMPX ####[address] [place] [address] Lab Director: PATTI Peckhloride [Moles/Vol]108 mmol/PChdf95-267JwcciKettering HealthComment on above:Performed By: #### CDP, BMPX ####[address] , [place] [address] Lab Director: David Montez MDCO2 [Moles/Vol]26 mmol/RLpudbx87-14GtgwrKettering HealthComment on above:Performed By: #### CDP, BMPX ####[address] [place], [place] [address] Lab Director: PATTI Peckreatinine [Mass/Vol]0.9 mg/dLNormal 0.70-1.20[facility]tering HealthComment on above:Performed By: #### MIESHA, BMPX ####[address] [place] [phone] Director: David Montez MDGFR/1.73 sq M.predicted among non-blacks MDRD (S/P/Bld) [Vol rate/Area]mL/min/{1.73_m2}Normal>60[facility] HealthComment on above:Result Comment: These results are not intended for use in patients <18 years of age.eGFR resultsare calculated without a race factor using the 2020 CKD-EPI equation.Careful clinical correlation is recommended, particularly when comparing to results calculated using previous equations.The CKD-EPI equation is less accurate in patients with extremes of muscle mass, extra-renal metabolism of creatine, excessive creatine ingestion, or following therapy that affects renal tubular secretion.Performed By: #### MIESHA, BMPX ####[address] , [place] [address] Lab Director: David Montez MDGlucose [Mass/Vol]93 mg/qSGohtbh32-51DbprnLouis Stokes Cleveland VA Medical CenterComment on above:Performed By: #### MIESHA, BMPX ####[address] , [place] [address] Lab Director: David Montez MDPotassium [Moles/Vol]3.8 mmol/LNormal3.7-5.3MLouis Stokes Cleveland VA Medical CenterComment on above: Performed By: #### MIESHA, BMPX ####[address] [place] [address] Lab Director: David Montez MDSodium [Moles/Vol]144 mmol/EXfmmnn884-736BasqoKettering HealthComment on above: Performed By: #### CDP, BMPX ####[facility] [place] [address] Lab Director: David Montez MDUrea nitrogen [Mass/Vol]23 mg/dLNormal8-23Kettering HealthComment on above:Performed By: #### MIESHA, BMPX ####[facility] [place] , [place] [id number] lab Director: David Montez MDNatchaug Hospital Metabolic Panel w/ Reflex to MGon [id number] gap [Moles/Vol]10 mmol/L9 - 16 mmol/LBon [facility] HealthCalcium [Mass/Vol]9.5 mg/dL8.6 - 10.4 mg/dLBon [facility] Health Chloride [Moles/Vol]108 mmol/LHigh98 - 107 mmol/LBon [facility] HealthCO2 [Moles/Vol]26 mmol/L20 - 31 mmol/LBon [facility] HospitalCreatinine [Mass/Vol] 0.9 mg/dL0.70 - 1.20 mg/dLBon SecOchsner Medical Center HealthEst, Glom Filt Rate- PINFBon [facility] HospitalComment on above: These results are not intended [...] therapy that affects renal tubular secretion. Glucose [Mass/Vol]93 mg/dL74 - 99 mg/dLBon [facility] HospitalInterpretation and review of laboratory resultsAbnormalBon Secours [facility] Hospitaly HealthPotassium [Moles/Vol]3.8 mmol/L3.7 - 5.3 mmol/LBon SecDeer Park HospitalHarbinger Medical HealthSodium [Moles/Vol] 144 mmol/L136 - 145 mmol/LBon [facility] HealthUrea nitrogen [Mass/Vol]23 mg/dL8 - 23 mg/dLBon [facility] HospitalUrea nitrogen/Creatinine [Mass ratio]26 mg/mgHigh9 - 20Bon [facility] CenterC auto differentialon [id number] (Bld) [#/Vol]0.06 10*3/uLBon [facility] HospitalImmature granulocytes (Bld) [#/Vol]0.03 10*3/uLBon [facility] Interpretation and review of laboratory resultsAbnormalBon [facility] Lymphocytes/100 WBC (Bld)2.18 %[facility] CenterMonocytes/100 WBC (Bld) 0.76 %[facility] CenterNeutrophils/100 WBC (Bld)69 %High36 - 65 %[facility] CenterNucleated RBC/100 WBC (Bld) [Ratio]0.0 %0.0 per 100 WBCSentara Rmh Medical CenterSegmented neutrophils/100 WBC (Bld)7.37 %[facility] Medical CenterWBC other (Bld) [#/Vol]10.7Bon [facility] with Diffon 66-50-1159Qggpirzvd/100 WBC (Bld)1 %Normal0-2Bon [facility] HospitalComment on above:Performed By: #### CDP, BMPX ####[address] [place] [address] Lab Director: MARISOL Peckosinophils (Bld) [#/Vol]0.34 10*3/uLNormal0.00-0.44Bon [facility] HospitalComment on above:Performed By: #### CDP, BMPX ####[address] [place], [place] [address] lab Director: MARISOL Peckosinophils/100 WBC (Bld)3 %Normal1-4Bon [facility] Comment on above:Performed By: #### CDP, BMPX ####[address] [place] [id number] Lab Director: David Montez MDErythrocyte distribution width (RBC) [Ratio]12.4 %Wevkcn40.8-14.4Bon [facility] on above:Performed By: #### CDP, BMPX ####[address] [place] [id number] Lab Director: David Montez MDHematocrit (Bld) [Volume fraction]39.0 %Low40.7-50.3Bon [facility] on above:Performed By: #### CDP, BMPX ####[address] [place], [place] [address])[phone] Director: David Montez MDHemoglobin (Bld) [Mass/Vol]12.9 g/dLLow13.0-17.0Bon [facility] on above:Performed By: #### CDP, BMPX ####[address] , [facility]83 Lab Director: David Montez MDImmature granulocytes/100 WBC (Bld)0 %Mgcioj5Ckz [facility] on above:Performed By: #### CDP, BMPX ####[address] [place] [id number] Lab Director: David Montez MDLymphocytes/100 WBC (Bld)20 %Hyf37-53Mjg [facility] on above:Performed By: #### CDP, BMPX ####[address] [place] [id number] Lab Director: DUKE PeckCH (RBC) [Entitic mass]33.1 gpDjvsnr58.2-33.5Bon [facility] on above:Performed By: #### CDP, BMPX ####[address] [place], [place] [address] Lab Director: DUKE PeckCHC (RBC) [Mass/Vol]33.1 g/aQYxtjmi61.4-34.8Bon [facility] on above:Performed By: #### CDP, BMPX ####[address] [place] [address] Lab Director: DUKE PeckCV (RBC) [Entitic vol]100.0 wHJqzenn09.6-102.9Bon [facility] on above: Performed By: #### CDP, BMPX ####[address] , [place] [address])[phone] Director: DUKE Peckonocytes/100 WBC (Bld)7 %Normal3-12Bon [facility] on above:Performed By: #### MIESHA, BMPX ####[address] [place] [address]([facility])[phone] Director: Abel Pecktelet mean volume (Bld) [Entitic vol]8.7 fLNormal8.1-13.5Bon [facility] on above: Performed By: #### CDP, BMPX ####[address] [place] [address]([facility])[phone] Director: VONDA Pecklatelets (Bld) [#/Vol]225 10*3/lWLpruqf873-612Gxy [facility] on above: Performed By: #### CDP, BMPX ####[address] [place] [address] Lab Director: David Montez MDRBC (Bld) [#/Vol] 3.90 10*6/uLLow4.21-5.77Bon [facility] on above:Performed By: #### CDP, BMPX ####[address] [place] [address] [facility] Director: MDAbs. Liv Basophil0.06 k/uLNormal 0.00-0.20[facility] HospitalComment on above:Performed By: #### CDP, BMPX ####[address] , [place] [address])[phone] Director: MDAbs. LivImm.Granulocyte0.03 k/uLNormal0.00-0.30 [facility] HospitalComment on above:Performed By: #### CDP, BMPX ####[address] [place], [place] [address])[phone] Director: MDAbs. LivNeutrophil (Seg)7.37 k/uLNormal1.50-8.10[facility] HospitalComment on above:Performed By: #### MIESHA, BMPX ####[address] , [place] [address])[phone] Director: David Montez MDLymphocytes (Bld) [#/Vol]2.18 10*3/uLNormal1.10-3.70[facility] HospitalComment on above:Performed By: #### MIESHA, BMPX ####[address] [place], [place] [address])[phone] Director: DUKE Peckonocytes (Bld) [#/Vol]0.76 10*3/uLNormal0.10-1.20[facility] HospitalComment on above:Performed By: #### CDP, BMPX ####[address] [place], [place] [address])[phone] Director: David Montez MDNeutrophil (Seg)69 %Gdiq73-20Bmhee Tiffin HospitalComment on above: Performed By: #### CDP, BMPX ####[address] [place] [address] lab Director: BOB PeckBC Automated0.0 per 100 WBCNormal0.0U[facility] Healthcy Windham HospitalComment on above:Performed By: #### CDP, BMPX ####[facility] [place] [address] lab Director: HOME PeckBC (Bld) [#/Vol]10.7 10*3/uL Normal3.5-11.3[facility] HospitalComment on above:Performed By: #### CDP, BMPX ####[facility] [place] [address] lab Director: PATTI Peckmalden hospital Lineon [id number] Gates MD 02/03/2024 3:57 AM Central Line Date/Time: 02/03/2024 3:53 AM Performed by: Jackson Gates MD Authorized by: Jackson Gates MD Consent: Consent obtained: Verbal Consent given by: Patient and guardian Risks, benefits, and alternatives were discussed: yes Risks discussed: Arterial puncture, incorrect placement, bleeding, infection, pneumothorax and nerve damage Alternatives discussed: No treatment, delayed treatment and observation Erick protocol: Patient identity confirmed: Verbally with patient, hospital-assigned identification number and arm band Pre-procedure details: Indication(s): insufficient peripheral access Hand hygiene: Hand hygiene performed prior to insertion Sterile barrier technique: All elements of maximal sterile technique followed Skin preparation: Chlorhexidine Skin preparation agent: Skin preparation agent completely dried prior to procedure Sedation: Sedation type: None Anesthesia: Anesthesia method: Local infiltration Local anesthetic: Lidocaine 1% w/o epi Procedure details: Location: R internal jugular Patient position: Trendelenburg Procedural supplies: Triple lumen Catheter size: 7 Fr Landmarks identified: yes Ultrasound guidance: yes Sterile ultrasound techniques: Sterile gel and sterile probe covers were used Number of attempts: 1 Successful placement: yes Post-procedure details: Post-procedure: Dressing applied Assessment: Blood return through all ports, no pneumothorax on x-ray, placement verified by x-ray and free fluid flow Procedure completion: Tolerated well, no immediate complicationsBon Secours Mercy Health Anderson HospitalBon Secours Mercy Health Anderson HospitalPortable XR Chest AP single viewon [id number] internal jugular central venous catheter tip at the cavoatrial junction. [facility] RIS CONSOLIDATEDEXAMINATION: ONE XRAY VIEW OF THE CHEST 02/03/2024 6:15 pm COMPARISON: Chest x-ray 02/03/2024 1:11 p.m. HISTORY: ORDERING SYSTEM PROVIDED HISTORY: central line placement TECHNOLOGIST PROVIDED HISTORY: central line placement FINDINGS: Right internal jugular central venous catheter tip at the cavoatrial junction. Mild left basilar atelectasis is unchanged. Costophrenic angles are clear. NG tube tip projects over the body of the stomach. The bones are intact. [facility] Shahid Cerrato MD - 02/03/2024 EXAMINATION: ONE XRAY VIEW OF THE CHEST 02/03/2024 6:15 pm COMPARISON: Chest x-ray 02/03/2024 1:11 p.m. HISTORY: ORDERING SYSTEM PROVIDED HISTORY: central line placement TECHNOLOGIST PROVIDED HISTORY: central line placement FINDINGS: Right internal jugular central venous catheter tip at the cavoatrial junction. Mild left basilar atelectasis is unchanged. Costophrenic angles are clear. NG tube tip projects over the body of the stomach. The bones are intact. IMPRESSION: Right internal jugular central venous catheter tip at the cavoatrial junction. [facility] HealthRadiology Study observation (narrative)[facility]1. Right internal jugular central venous catheter is present with tip terminating in the right atrium. 2. Left basilar opacities may represent atelectasis or pneumonia. [facility] CONSOLIDATEDEXAMINATION: ONE XRAY VIEW OF THE CHEST 02/03/2024 1:15 pm COMPARISON: Chest radiograph 02/03/2024 HISTORY: ORDERING SYSTEM PROVIDED HISTORY: verify central venous catheter tip placement. (If still mid right atrium how far to pull back?) TECHNOLOGIST PROVIDED HISTORY: verify central venous catheter tip placement. (If still mid right atrium how far to pull back?) FINDINGS: Lines and Tubes: Right internal jugular central venous catheter is present with tip terminating in the right atrium. An enteric tube is present with tip and side port overlying the left upper quadrant. Stimulator noted about the left chest wall with leads terminating within the left lateral neck. Lungs: Left basilar opacities. Pleura: No effusion or pneumothorax. Cardiomediastinal silhouette: Normal contours. Bones: Old healed fracture of the distal left clavicle. Bilateral acromioclavicular and glenohumeral joint arthrosis Soft tissues: Normal. Mor Villagran MD - 02/03/2024 EXAMINATION: ONE XRAY VIEW OF THE CHEST 02/03/2024 1:15 pm COMPARISON: Chest radiograph 02/03/2024 HISTORY: ORDERING SYSTEM PROVIDED HISTORY: verify central venous catheter tip placement. (If still mid right atrium how far to pull back?) TECHNOLOGIST PROVIDED HISTORY: verify central venous catheter tip placement. (If still mid right atrium how far to pull back?) FINDINGS: Lines and Tubes: Right internal jugular central venous catheter is present with tip terminating in the right atrium. An enteric tube is present with tip and side port overlying the left upper quadrant. Stimulator noted about the left chest wall with leads terminating within the left lateral neck. Lungs: Left basilar opacities. Pleura: No effusion or pneumothorax. Cardiomediastinal silhouette: Normal contours. Bones: Old healed fracture of the distal left clavicle. Bilateral acromioclavicular and glenohumeral joint arthrosis Soft tissues: Normal. IMPRESSION: 1. Right internal jugular central venous catheter is present with tip terminating in the right atrium. 2. Left basilar opacities may represent atelectasis or pneumonia. [facility] HealthRadiology Study observation (narrative)[facility] Medical CenterInterval placement of a right IJ approach central venous catheter with tip in the mid right atrium. No pneumothorax. [facility] GIOVANNA CONSOLIDATEDEXAMINATION: ONE XRAY VIEW OF THE CHEST 02/03/2024 3:04 am COMPARISON: 06/11/2023 HISTORY: ORDERING SYSTEM PROVIDED HISTORY: R IJ CVC placed TECHNOLOGIST PROVIDED HISTORY: R IJ CVC placed FINDINGS: Interval placement of a right IJ approach central venous catheter with the tip seen in the mid right atrium. No pneumothorax is identified. Low lung volumes, with perihilar atelectasis. No consolidation. No pleural effusion. No acute osseous abnormality is identified. Left-sided chest wall stimulator device with leads at the left neck. Degenerative change in the shoulders bilaterally. [facility] David Reeves MD - 02/03/2024 EXAMINATION: ONE XRAY VIEW OF THE CHEST 02/03/2024 3:04 am COMPARISON: 06/11/2023 HISTORY: ORDERING SYSTEM PROVIDED HISTORY: R IJ CVC placed TECHNOLOGIST PROVIDED HISTORY: R IJ CVC placed FINDINGS: Interval placement of a right IJ approach central venous catheter with the tip seen in the mid right atrium. No pneumothorax is identified. Low lung volumes, with perihilar atelectasis. No consolidation. No pleural effusion. No acute osseous abnormality is identified. Left-sided chest wall stimulator device with leads at the left neck. Degenerative change in the shoulders bilaterally. IMPRESSION: Interval placement of a right IJ approach central venous catheter with tip in the mid right atrium. No pneumothorax. [facility] ResearchRadiology Study observation (narrative)[facility] ResearchPortable XR Chest AP single viewOrdered By: Mor Louis on [id number] GigsTime Phone: Portable XR Chest AP single viewOrdered By: David Miles on [id number] GigsTime Phone: XR ABDOMEN (KUB) (SINGLE AP VIEW)on [id number] ABDOMEN (KUB) (SINGLE AP VIEW)[facility] HospitalXR ABDOMEN FOR NG/OG/NE TUBE PLACEMENTon [id number] ABDOMEN FOR NG/OG/NE TUBE PLACEMENTNormalKettering HealthThe tip and side port of the enteric tube are in the gastric lumen. [facility] RIS CONSOLIDATEDEXAMINATION: ONE SUPINE XRAY VIEW(S) OF THE ABDOMEN 02/03/2024 1:49 am COMPARISON: CT abdomen and pelvis 02/02/2024. HISTORY: ORDERING SYSTEM PROVIDED HISTORY: Confirmation of course of NG/OG/NE tube and location of tip of tube TECHNOLOGIST PROVIDED HISTORY: Confirmation of course of NG/OG/NE tube and location of tip of tube Portable?->Yes FINDINGS: The tip and side port of the enteric tube are in the gastric lumen. No evidence of pneumoperitoneum. No acute osseous abnormality. PN Nghia Barillas MD - 02/03/2024 EXAMINATION: ONE SUPINE XRAY VIEW(S) OF THE ABDOMEN 02/03/2024 1:49 am COMPARISON: CT abdomen and pelvis 02/02/2024. HISTORY: ORDERING SYSTEM PROVIDED HISTORY: Confirmation of course of NG/OG/NE tube and location of tip of tube TECHNOLOGIST PROVIDED HISTORY: Confirmation of course of NG/OG/NE tube and location of tip of tube Portable?->Yes FINDINGS: The tip and side port of the enteric tube are in the gastric lumen. No evidence of pneumoperitoneum. No acute osseous abnormality. IMPRESSION: The tip and side port of the enteric tube are in the gastric lumen. [facility] HospitalRadiology Study observation (narrative)[facility] Abdomen Single viewon . NG tube tip projects over the body of the stomach. 2. Dilated loops of small bowel and colon with gas in the distal colon. This could represent ileus or partial small bowel obstruction. [facility] CONSOLIDATEDEXAMINATION: ONE SUPINE XRAY VIEW(S) OF THE ABDOMEN 02/03/2024 1:42 pm COMPARISON: Abdomen 07/24/[address] scan of the abdomen and pelvis 02/02/2024 HISTORY: ORDERING SYSTEM PROVIDED HISTORY: progress study/recurrent sbo/ok to do at bedside TECHNOLOGIST PROVIDED HISTORY: progress study/recurrent sbo/ok to do at bedside FINDINGS: NG tube tip projects over the body of the stomach with the side hole projecting over the body of the stomach. There is some dilated loops of small bowel as well as gaseous distension loops of colon with gas in the distal colon. [facility] Shahid De Guzman MD - 02/03/2024 EXAMINATION: ONE SUPINE XRAY VIEW(S) OF THE ABDOMEN 02/03/2024 1:42 pm COMPARISON: Abdomen 07/24/[address] scan of the abdomen and pelvis 02/02/2024 HISTORY: ORDERING SYSTEM PROVIDED HISTORY: progress study/recurrent sbo/ok to do at bedside TECHNOLOGIST PROVIDED HISTORY: progress study/recurrent sbo/ok to do at bedside FINDINGS: NG tube tip projects over the body of the stomach with the side hole projecting over the body of the stomach. There is some dilated loops of small bowel as well as gaseous distension loops of colon with gas in the distal colon. IMPRESSION: 1. NG tube tip projects over the body of the stomach. 2. Dilated loops of small bowel and colon with gas in the distal colon. This could represent ileus or partial small bowel obstruction. [facility] Medical CenterRadiology Study observation (narrative)[facility] Abdomen Single viewOrdered By: Shahid Oliva on [id number] [facility] Work Phone: XR CHEST PORTABLEon [id number] CHEST PORTABLEGuernsey Memorial HospitalXR CHEST PORTABLEGuernsey Memorial HospitalXR CHEST TriHealthAPTTon [id number] Coag (Bld) [Time]24.8 s Low26.8-34.8Bon [facility] HospitalComment on above: IV Heparin Therapy Range: 62.0-94.0 Result Comment: IV Heparin Therapy Range: 62.0-94.0Performed By: #### PTT, PT, LIP, CDP, BMP, LIVP ####[facility] [place] [address] [facility] Director: David Montez MDInterpretation and review of laboratory resultsAbnoCumberland HospitalBon [facility] HospitalBMPon [id number] gap [Moles/Vol]10 mmol/L9 - 16 mmol/LBon [facility] HospitalCalcium [Mass/Vol]8.9 mg/dL8.6 - 10.4 mg/dLBon [facility] Chloride [Moles/Vol]107 mmol/L98 - 107 mmol/LBon [facility] HospitalCO2 [Moles/Vol]25 mmol/L20 - 31 mmol/LBon [facility] HospitalCreatinine [Mass/Vol] 1.0 mg/dL0.70 - 1.20 mg/dLBon [facility] HospitalEst, Glom Filt Rate83- PINFBon [facility] HospitalComsouthwest regional rehabilitation center on above: These results are not intended [...] therapy that affects renal tubular secretion. Glucose [Mass/Vol]99 mg/dL74 - 99 mg/dLBon [facility] HospitalPotassium [Moles/Vol]4.1 mmol/L3.7 - 5.3 mmol/LBon [facility] HospitalComment on above: Specimen hemolysis has exceeded the interference as defined by Em. Value may be falsely increased. Suggest recollection if clinically indicated. Sodium [Moles/Vol]142 mmol/L136 - 145 mmol/LBon [facility] HospitalUrea nitrogen [Mass/Vol]26 mg/dLHigh8 - 23 mg/dLBon [facility] nitrogen/Creatinine [Mass ratio]26 mg/mgHigh9 - 20Bon [facility] HospitalBasic Metabolic Profon 63-65-1663Nbexb gap [Moles/Vol]10 mmol/LNormal9-16Kettering HealthComment on above:Performed By: #### PTT, PT, LIP, CDP, BMP, LIVP ####[place] [phone] Director: David Montez MDBUN/CRE Gbnxc82Rhzp4-50FmbzyKettering Health Comment on above:Performed By: #### PTT, PT, LIP, CDP, BMP, LIVP ####[place] [id number] Lab Director: PATTI Peckalcium [Mass/Vol]8.9 mg/dLNormal8.6-10.4Kettering HealthComment on above:Performed By: #### PTT, PT, LIP, CDP, BMP, LIVP ####[place] [phone] Director: PATTI Peckhloride [Moles/Vol]107 mmol/SGmdacm82-169 Kettering HealthComment on above:Performed By: #### PTT, PT, LIP, CDP, BMP, LIVP ####[place] [id number] Lab Director: PATTI PeckO2 [Moles/Vol]25 mmol/LNormal 20-31Kettering HealthComment on above:Performed By: #### PTT, PT, LIP, CDP, BMP, LIVP ####[place] [id number] Lab Director: PATTI Peckreatinine [Mass/Vol]1.0 mg/dL Normal0.70-1.20Kettering HealthComment on above:Performed By: #### PTT, PT, LIP, CDP, BMP, LIVP ####[address] [address] Lab Director: David Montez MDGFR/1.73 sq M.predicted among non-blacks MDRD (S/P/Bld) [Vol rate/Area]83 mL/min/{1.73_m2} Normal>60Kettering HealthComment on above:Result Comment: These results are not intended for use in patients <18 years of age.eGFR resultsare calculated without a race factor using the 2020 CKD-EPI equation.Careful clinical correlation is recommended, particularly when comparing to results calculated using previous equations.The CKD-EPI equation is less accurate in patients with extremes of muscle mass, extra-renal metabolism of creatine, excessive creatine ingestion, or following therapy that affects renal tubular secretion.Performed By: #### PTT, PT, LIP, CDP, BMP, LIVP ####[place] [id number] Lab Director: David Montez MDGlucose [Mass/Vol]99 mg/gVEdhbvx64-98CtxuoLouis Stokes [facility] VA Medical CenterComment on above:Performed By: #### PTT, PT, LIP, CDP, BMP, LIVP ####[place] [id number] Lab Director: VONDA Peckotassium [Moles/Vol]4.1 mmol/LNormal3.7-5.3MLouis Stokes Cleveland VA Medical CenterComment on above:Result Comment: Specimen hemolysis has exceeded the interference as defined by Em. Value may be falsely increased. Suggest recollection if clinically indicated. Performed By: #### PTT, PT, LIP, CDP, BMP, LIVP ####[place] [id number] Lab Director: GIN Peckodium [Moles/Vol]142 mmol/ASgfmqc258-882JzsirKettering HealthComment on above:Performed By: #### PTT, PT, LIP, CDP, BMP, LIVP ####[place] [address] Lab Director: Paevl Peck nitrogen [Mass/Vol]26 mg/dLHigh8-23Kettering HealthComment on above:Performed By: #### PTT, PT, LIP, CDP, BMP, LIVP ####[place] [address] Lab Director: David Montez [facility] – MCALESTERBC with Auto Differentialon 33-27-7050Jdazhacmh (Bld) [#/Vol]0.04 10*3/uLBon [facility] Centerours [facility] HospitalBasophils/100 WBC (Bld)0 %0 - 2 %[facility] Medical CenterEosinophils (Bld) [#/Vol]0.34 10*3/uLBon [facility] Eosinophils/100 WBC (Bld)3 %1 - 4 %Bon SecDeer Park Hospitaly Bellevue HospitalErythrocyte distribution width (RBC) [Ratio]12.4 %11.8 - 14.4 %[facility] SecThe [facility] Hematocrit (Bld) [Volume fraction]38.4 %Low40.7 - 50.3 %Bon SecThe [facility] of [facility] Hemoglobin (Bld) [Mass/Vol]12.6 g/dLLow13.0 - 17.0 g/dLBon SecThe [facility] of [facility] Immature granulocytes (Bld) [#/Vol]0.03 10*3/uLBon Secours [facility] Anderson HospitalImmature granulocytes/100 WBC (Bld)0 %0Bon [facility] Hospitaly AttunityInterpretation and review of laboratory resultsAbnormalBon [facility] HospitalLymphocytes/100 WBC (Bld)16 %Low24 - 43 %Bon [facility] HospitalLymphocytes/100 WBC (Bld)1.72 %Bon [facility] CenterH (RBC) [Entitic mass]33.2 pg25.2 - 33.5 pgBon [facility] Health CenterHC (RBC) [Mass/Vol]32.8 g/dL28.4 - 34.8 g/dLBon SecUniversity Hospitals Parma Medical CenterV (RBC) [Entitic vol]101.1 fL82.6 - 102.9 fLBon [facility] HospitalMonocytes/100 WBC (Bld)6 %3 - 12 %[facility] CenterMonocytes/100 WBC (Bld)0.65 %[facility] Medical CenterNeutrophils/100 WBC (Bld)75 %High36 - 65 %[facility] CenterNucleated RBC/100 WBC (Bld) [Ratio]0.0 %0.0 per 100 WBCSentara Rmh Medical CenterPlatelet mean volume (Bld) [Entitic vol]9.2 fL8.1 - 13.5 fLSentara Rmh Medical CenterPlatelets (Bld) [#/Vol]245 10*3/uLBon [facility] HospitalRBC (Bld) [#/Vol]3.80 10*6/uLLow4.21 - 5.77 m/uLSentara Rmh Medical CenterSegmented neutrophils/100 WBC (Bld)8.20 %HighSentara Rmh Medical CenterWBC other (Bld) [#/Vol]11.0Bon [facility] Indian HospitalCBC with Diffon [id number]. Basophil0.04 k/uLNormal0.00-0.20Kettering HealthComment on above:Performed By: #### PTT, PT, LIP, CDP, BMP, LIVP ####[facility] [place] [address] Lab Director: Jaret Peck.Imm.Granulocyte0.03 k/uLNormal0.00-0.30[facility] Comment on above:Performed By: #### PTT, PT, LIP, CDP, BMP, LIVP ####[place] [address] Lab Director: Jaret Peck.Neutrophil (Seg)8.20 k/uLHigh1.50-8.10Kettering HealthComment on above:Performed By: #### PTT, PT, LIP, CDP, BMP, LIVP ####[place] [phone] Director: David Montez MDBasophils/100 WBC (Bld)0 %Normal0-2MLouis Stokes Cleveland VA Medical Center HospitalComment on above:Performed By: #### PTT, PT, LIP, CDP, BMP, LIVP ####[place], [place] [address])[phone] Director: David Montez MDEosinophils (Bld) [#/Vol]0.34 10*3/uLNormal 0.00-0.44[facility] HospitalComment on above:Performed By: #### PTT, PT, LIP, CDP, BMP, LIVP ####[place] [address] Lab Director: MARISOL Peckosinophils/100 WBC (Bld)3 % Normal1-4[facility] HospitalComment on above:Performed By: #### PTT, PT, LIP, CDP, BMP, LIVP ####[place] [address] Lab Director: David Montez MDErythrocyte distribution width (RBC) [Ratio]12.4 %Kdfked13.8-14.4Kettering HealthComment on above: Performed By: #### PTT, PT, LIP, CDP, BMP, LIVP ####[place] [id number] Lab Director: David Montez MDHematocrit (Bld) [Volume fraction]38.4 %Low40.7-50.3MSt. Vincent Hospital on above:Performed By: #### PTT, PT, LIP, CDP, BMP, LIVP ####[place] [id number] Lab Director: David Montez MDHemoglobin (Bld) [Mass/Vol]12.6 g/dLLow13.0-17.0K[facility]tering HealthComment on above:Performed By: #### PTT, PT, LIP, CDP, BMP, LIVP ####[place] [phone] Director: David Montez MDImmature granulocytes/100 WBC (Bld)0 %Normal0 Kettering HealthComment on above:Performed By: #### PTT, PT, LIP, CDP, BMP, LIVP ####[place] [id number] Lab Director: David Montez MDLymphocytes (Bld) [#/Vol]1.72 10*3/uLNormal1.10-3.70Kettering HealthComment on above:Performed By: #### PTT, PT, LIP, CDP, BMP, LIVP ####[address] , [facility]83 Lab Director: Luis Peckmphocytes/100 WBC (Bld)16 %Cut20-27JmedrKettering HealthComment on above:Performed By: #### PTT, PT, LIP, CDP, BMP, LIVP ####[address] [place] [address] Lab Director: DUKE PeckCH (RBC) [Entitic mass]33.2 zcXrcjuv44.2-33.5[facility]uthers HospitalComment on above:Performed By: #### PTT, PT, LIP, CDP, BMP, LIVP ####[place] [phone] Director: DUKE PeckCHC (RBC) [Mass/Vol]32.8 g/xWAxalbo69.4-34.8[facility] HospitalComment on above: Performed By: #### PTT, PT, LIP, CDP, BMP, LIVP ####[place] [phone] Director: DUKE PeckCV (RBC) [Entitic vol]101.1 sVZhrmlw24.6-102.9Kettering HealthComment on above:Performed By: #### PTT, PT, LIP, CDP, BMP, LIVP ####[place], [place] [address])[phone] Director: DUKE Peckonocytes (Bld) [#/Vol]0.65 10*3/uLNormal0.10-1.20[facility] HospitalComment on above:Performed By: #### PTT, PT, LIP, CDP, BMP, LIVP ####[place] [phone] Director: DUKE Peckonocytes/100 WBC (Bld)6 %Normal3-12[facility] HospitalComment on above:Performed By: #### PTT, PT, LIP, CDP, BMP, LIVP ####[place] [phone] Director: David Montez MDNeutrophil (Seg)75 %Fjui44-02Ykriw Tiffin HospitalComment on above:Performed By: #### PTT, PT, LIP, CDP, BMP, LIVP ####[place] [phone] Director: SOY Peck Automated0.0 per 100 WBCNormal0.0Kettering HealthComment on above:Performed By: #### PTT, PT, LIP, CDP, BMP, LIVP ####[address] [phone] Director: Maria Luisa Peck mean volume (Bld) [Entitic vol]9.2 fL Normal8.1-13.5[facility] HospitalComment on above:Performed By: #### PTT, PT, LIP, CDP, BMP, LIVP ####[address] [id number] Lab Director: Dacia Peck (Bld) [#/Vol]245 10*3/zKMyzugh141-201TcuzbKettering HealthComment on above:Performed By: #### PTT, PT, LIP, CDP, BMP, LIVP ####[address] [address] Lab Director: RONNIE Peck (Bld) [#/Vol]3.80 10*6/uLLow4.21-5.77Kettering HealthComment on above:Performed By: #### PTT, PT, LIP, CDP, BMP, LIVP ####[address] [phone] Director: CELINA Peck (Bld) [#/Vol]11.0 10*3/uLNormal3.5-11.3MLouis Stokes [facility] Center HospitalComment on above: Performed By: #### PTT, PT, LIP, CDP, BMP, LIVP ####[address] [address] Lab Director: David Montez MDCT ABDOMEN PELVIS WO CONTRASTon [id number] ABDOMEN PELVIS WO CONTRASTNormal [facility]hers HospitalCT Abdomen and Pelvis WO contraston . No acute abnormality in the abdomen or pelvis. 2. Gastric distension of uncertain clinical significance. Gastroparesis is not excluded. [facility] CONSOLIDATEDEXAMINATION: CT OF THE ABDOMEN AND PELVIS WITHOUT CONTRAST 02/02/2024 10:13 pm TECHNIQUE: CT of the abdomen and pelvis was performed without the administration of intravenous contrast. Multiplanar reformatted images are provided for review. Automated exposure control, iterative reconstruction, and/or weight based adjustment of the mA/kV was utilized to reduce the radiation dose to as low as reasonably achievable. COMPARISON: CT abdomen and pelvis 07/21/2023. HISTORY: ORDERING SYSTEM PROVIDED HISTORY: Vomiting; hx of SBO TECHNOLOGIST PROVIDED HISTORY: Vomiting; hx of SBO Decision Support Exception - unselect if not a suspected or confirmed emergency medical condition->Emergency Medical Condition (MA) FINDINGS: Lower Chest: Mild cardiomegaly. Coronary artery atherosclerotic vascular calcifications. Mild bibasilar atelectasis. Chronic unchanged elevation of the left hemidiaphragm. Organs: Lack of intravenous contrast limits evaluation of the solid organs, vascular structures, and bowel. The liver and gallbladder are unremarkable. No biliary ductal dilatation is identified. The pancreas, spleen, and bilateral adrenal glands are unremarkable. The right kidney is unremarkable. Chronic left Gina renal subcapsular fluid collection with peripheral calcifications unchanged from the previous exam. No further evaluation recommended. No obstructive uropathy or urinary collecting system calculi. GI/Bowel: No evidence of acute appendicitis. The colon is unremarkable. Small bowel anastomotic sutures in the left lower quadrant with focal unchanged dilatation likely postoperative in etiology. The stomach is distended with gas and fluid. No wall thickening or convincing evidence of obstruction. Pelvis: The urinary bladder is normal in appearance. No prostatomegaly. No free fluid in the pelvis. No pelvic or inguinal lymphadenopathy. Peritoneum/Retroperitoneum: The abdominal aorta is normal in caliber with moderate calcific plaquing. No retroperitoneal or mesenteric lymphadenopathy is identified. No free air or fluid is seen in the abdomen. Bones/Soft Tissues: No acute osseous or soft tissue abnormality. [facility] Nghia Syed MD - 02/02/2024 EXAMINATION: CT OF THE ABDOMEN AND PELVIS WITHOUT CONTRAST 02/02/2024 10:13 pm TECHNIQUE: CT of the abdomen and pelvis was performed without the administration of intravenous contrast. Multiplanar reformatted images are provided for review. Automated exposure control, iterative reconstruction, and/or weight based adjustment of the mA/kV was utilized to reduce the radiation dose to as low as reasonably achievable. COMPARISON: CT abdomen and pelvis 07/21/2023. HISTORY: ORDERING SYSTEM PROVIDED HISTORY: Vomiting; hx of SBO TECHNOLOGIST PROVIDED HISTORY: Vomiting; hx of SBO Decision Support Exception - unselect if not a suspected or confirmed emergency medical condition->Emergency Medical Condition (MA) FINDINGS: Lower Chest: Mild cardiomegaly. Coronary artery atherosclerotic vascular calcifications. Mild bibasilar atelectasis. Chronic unchanged elevation of the left hemidiaphragm. Organs: Lack of intravenous contrast limits evaluation of the solid organs, vascular structures, and bowel. The liver and gallbladder are unremarkable. No biliary ductal dilatation is identified. The pancreas, spleen, and bilateral adrenal glands are unremarkable. The right kidney is unremarkable. Chronic left Gina renal subcapsular fluid collection with peripheral calcifications unchanged from the previous exam. No further evaluation recommended. No obstructive uropathy or urinary collecting system calculi. GI/Bowel: No evidence of acute appendicitis. The colon is unremarkable. Small bowel anastomotic sutures in the left lower quadrant with focal unchanged dilatation likely postoperative in etiology. The stomach is distended with gas and fluid. No wall thickening or convincing evidence of obstruction. Pelvis: The urinary bladder is normal in appearance. No prostatomegaly. No free fluid in the pelvis. No pelvic or inguinal lymphadenopathy. Peritoneum/Retroperitoneum: The abdominal aorta is normal in caliber with moderate calcific plaquing. No retroperitoneal or mesenteric lymphadenopathy is identified. No free air or fluid is seen in the abdomen. Bones/Soft Tissues: No acute osseous or soft tissue abnormality. IMPRESSION: 1. No acute abnormality in the abdomen or pelvis. 2. Gastric distension of uncertain clinical significance. Gastroparesis is not excluded. [facility] Document AgilityRadiology Study observation (narrative)[facility] Document AgilityIN Abdomen and Pelvis WO contrastOrdered By: Nghia Coffey on [id number] Document [employer]ility Work Phone: Hepatic Function Panelon [id number] [Mass/Vol] 4.2 g/dL3.5 - 5.2 g/dLBon Document AgilityAlbumin/Globulin [Mass ratio]1.3 {ratio}1.0 - 2.5Bon [facility] HospitalALP [Catalytic activity/Vol]165 U/LHigh 40 - 129 U/LBon [facility] HospitalALT [Catalytic activity/Vol]17 U/L10 - 50 U/LBon [facility] HospitalAST [Catalytic activity/Vol]18 U/L10 - 50 U/LBon [facility] HospitalBilirubin [Mass/Vol]mg/dL0.00 - 1.20 mg/dLBon [facility] HospitalBilirubin.direct [Mass/Vol]mg/dL0.00 - 0.30 mg/dLBon [facility] Comment on above:Specimen hemolysis has exceeded the interference as defined by Em. Value may be falsely increased. Suggest recollection if clinically indicated. Bilirubin.indirect [Mass/Vol]Can not be calculated0.0 - 1.0 mg/dLBon [facility] HospitalProtein [Mass/Vol]7.4 g/dL6.6 - 8.7 g/dLBon [facility] Lipaseon [id number] [Catalytic activity/Vol]94 U/LHigh13 - 60 U/LBon [facility] HospitalLipase [Catalytic activity/Vol]94 U/VFkfe48-16ZvctoKettering HealthComment on above:Performed By: #### PTT, PT, LIP, CDP, BMP, LIVP ####[address] [phone] Director: Carl Peck Profileon [id number] [Mass/Vol] 4.2 g/dLNormal3.5-5.2[facility] HospitalComment on above:Performed By: #### PTT, PT, LIP, CDP, BMP, LIVP ####[address] [place] [address] Lab Director: David Montez MDAlbumin/Glob Ratio 1.6Zbaytg3.0-2.5Kettering HealthComment on above:Performed By: #### PTT, PT, LIP, CDP, BMP, LIVP ####[address] [place] [address] Lab Director: Linda Peck Lbdr657 U/AVlzv13-191NjmjdKettering HealthComment on above:Performed By: #### PTT, PT, LIP, CDP, BMP, LIVP ####[address] [place] [address] Lab Director: David Montez MDALT [Catalytic activity/Vol]17 U/RHkdqeh71-94EuyvaKettering HealthComment on above:Performed By: #### PTT, PT, LIP, CDP, BMP, LIVP ####[address] [address] Lab Director: David Montez MDAST [Catalytic activity/Vol]18 U/AUytbig30-20NetccKettering HealthComment on above: Performed By: #### PTT, PT, LIP, CDP, BMP, LIVP ####[place] [id number] Lab Director: David Montez MD Bilirubin [Mass/Vol]mg/dLNormal0.00-1.20Kettering HealthComment on above: Performed By: #### PTT, PT, LIP, CDP, BMP, LIVP ####[place] [phone] Lab Director: David Montez MDBilirubin, IndirectCan not be calculatedNormal0.0-1.0[facility] Comment on above:Performed By: #### PTT, PT, LIP, CDP, BMP, LIVP ####[address] [address] Lab Director: David Montez MDBilirubin.indirect [Mass/Vol]mg/dLNormal0.00-0.30K[facility]tering HealthComment on above:Result Comment: Specimen hemolysis has exceeded the interference as defined by Em. Value may be falsely increased. Suggest recollection if clinically indicated.Performed By: #### PTT, PT, LIP, CDP, BMP, LIVP ####[place] [address] Lab Director: VONDA Peckrotein [Mass/Vol]7.4 g/dLNormal 6.6-8.7Kettering HealthComment on above:Performed By: #### PTT, PT, LIP, CDP, BMP, LIVP ####[place] [address] lab Director: Hardik Peck [facility] Informationon [id number] and review of laboratory resultsAbHand County Memorial Hospital / [facility] [id number] Coag (PPP) [Relative time]1.2 {INR}NormalKettering HealthComment on above:Result Comment: Therapeutic Range: Moderate Anticoagulant Intensity: INR = 2.0-3.0 High Anticoagulant Intensity: INR = 2.5-3.5Performed By: #### PTT, PT, LIP, CDP, BMP, LIVP ####[place] [address] Lab Director: VONDA PeckT Coag (PPP) [Time]14.4 [facility] 11.7-14.1MLouis Stokes Cleveland VA Medical CenterComment on above:Performed By: #### PTT, PT, LIP, CDP, BMP, LIVP ####[place] [address] Lab Director: VONDA Peckrotime-INRon [id number] Coag (PPP) [Relative time]1.2 {INR}[facility] Medical CenterComment on above: Therapeutic Range: Moderate Anticoagulant Intensity: INR = 2.0-3.0 High Anticoagulant Intensity: INR = 2.5-3.5 Interpretation and review of laboratory resultsAbLewisGale Hospital Alleghany PT Coag (PPP) [Time]14.4 [facility] CenterBon [facility] Progress Noteson [id number] Authentication Interface Message Text ----- Monday, January 29, 2024 at 2:03:26 PM ----- ----- Provider: [id number] Starks RD -- Clinic: [place] [address] ----- PROPHY Patient presents for prophy w/ Caregiver. Reviewed patient's medical history. Patient has a history of: See Epic, Epilepsy Cerebral palsy No contraindications, patient is ready for treatment. Patient is experiencing: no complaints of pain, sensitivity or tooth-related issues Tissue consistency: Inflamed and Retractable Inflammation: Generalized and Moderate Bleeding: Generalized and Moderate Recession: Localized and Mild Plaque: Generalized, Interproximal, Marginal, Supragingival, Subgingival, Heavy and with food debris Calculus: Generalized, Interproximal, Marginal, Supragingival, Subgingival and Heavy Stain: Generalized and Moderate Stressed flossing and proper brushing frequency/technique. NOTE: Patient will need more assistance with flossing and brushing daily. Some Subgingival calculus still present after prophy. Patient has special needs and tolerated procedure as best he could. Next Visit: Periodic Exam/Xrays Yolanda Starks [facility] ----- Signed on Monday, January 29, 2024 at 2:13:11 PM ----- ----- Provider: [id number] Starks RD -- Clinic: [place] [address] -----NormalThe [facility] Hospital SystemProgress Noteson [id number] Authentication Interface Message Text----- Thursday, January 25, 2024 at 11:48:03 AM ----- ----- Provider: [id number] Olga Hansen, Resident -- Clinic: [place] [address] ----- COMPOSITE JAINISM Patient is scheduled for Episcopalian on tooth #10 surface DLB. Pt was accompanied by caregiver. Reviewed Medical History. Pt exhibited the following conditions: see Epic. Patient is ready for treatment. Topical Benzocaine gel applied at the injection site for 2 minutes. Administered 1 carpules of Lidocaine, 2% with Epinephrine 1:100,000,. Cotton roll isolation achieved. Decay/existing orthodoxy removed, cavity prepared. Selectively etched enamel with 37% phosphoric acid, rinsed, and blot dried. Xeno IV pace applied and light-cured. Condensed packable composite shade A2 in light cured increments using Mylar strip and wedge. Finished with finishing burs, checked occlusion, verified proximal contacts and orthodoxy was polished. Rinsed and suctioned intraorally, advised patient to not eat until local anesthesia wears off. NOTE: Pt was very difficult to treat due his several medical conditions. IV sedation was considered but due medical conditions, he is not a candidate for it. Tooth #11 will keep in watch for now. Next Visit: Baxter-Prep ----- Signed on Thursday, January 25, 2024 at 5:10:20 PM ----- ----- Provider: Deb Rivera DDS -- Clinic: [place] [address] -----[facility] SystemTelephone Encounteron [phone] Authentication Interface Message Textpt [facility] in stating that had faxed over some papaerwork to be filled out. Please fill out paperwork when the fax is processed and fax back to Victorina mendoza [place] at [phone] Message sent to [facility] SystemProgress Noteson 10-18-2023 Technical Account Manager Authentication Interface Message Text----- October at 5:32:06 PM ----- ----- Provider: Deb Rivera DDS -- Clinic: [place] [address] ----- INITIAL/COMPREHENSIVE EXAM Special needs Patient presents for an Initial Examination with caregiver. Reviewed patient's medical history. Patient has a history of: Epilepsy, Cerebral Palsy, Glaucoma, developmental delay. No contraindications, patient is ready for treatment. Patient's chief complaint: Comp Exam I don't have any pain Pain Scale: 0/10 Radiographs taken today were: FMX Clinical Examination reveals: Patient has his complete dentition. Oh is poor, generalized plaque deposits and inflammation observed. However, no deep pockets noted and no significant bone loss. Periodontal diagnosis is gingivitis, and patient was scheduled for a prophy. Restorative exam was completed and the patient has multiple restorations in good clinical condition, however, the following was observed and planned: 1) Tooth #10 has an existing caries planned for composite placement. 2) Tooth #11 has an Collazo type II fracture planned for a ceramic crown. Soft tissue evaluation: Within Normal Limits TMJ evaluation: Normal TMJ Completed current status of dentition on the charting. Went over needs and treatment plan options with the patient. OHI were discussed with the patient. Written Instructions/AVS were also handed to the patient. Pt Concern: Full Exam was successfully done. Patient consented to the treatment plan. PRIOR: Prepared and filled for crown on #11 Next Visit: Lidiasheba , restorativeRye Psychiatric [facility] Center SystemXR ABDOMEN (2 VIEWS) on [id number]: TWO XRAY VIEWS OF THE ABDOMEN 07/24/2023 6:17 am COMPARISON: 07/23/2023 HISTORY: ORDERING SYSTEM PROVIDED HISTORY: SBO vs Ileus TECHNOLOGIST PROVIDED HISTORY: SBO vs Ileus FINDINGS: Overlying items external to the patient somewhat limit evaluation. Interval removal of enteric tube. Persistent air-filled loops of small bowel to the abdomen with some prominence of the bowel loops, left more than right. Findings do not appear appreciably changed from prior exam. No definite evidence for intraperitoneal free air is seen. Air is present in the rectum. IMPRESSION: 1. Interval removal of enteric tube. 2. Persistent air-filled loops of small bowel to the abdomen with some prominence of the bowel loops, left more than right. Findings do not appear appreciably changed from prior exam and may reflect an ileus or small-bowel obstruction. Continued follow-up is recommended. Interpreted by: Daquan Lara MD Signed by: Daquan Lara MD 07/24/23 Final resultMHPTRadiology, Radiologist, MD - 07/24/2023 EXAMINATION: TWO XRAY VIEWS OF THE ABDOMEN 07/24/2023 6:17 am COMPARISON: 07/23/2023 HISTORY: ORDERING SYSTEM PROVIDED HISTORY: SBO vs Ileus TECHNOLOGIST PROVIDED HISTORY: SBO vs Ileus FINDINGS: Overlying items external to the patient somewhat limit evaluation. Interval removal of enteric tube. Persistent air-filled loops of small bowel to the abdomen with some prominence of the bowel loops, left more than right. Findings do not appear appreciably changed from prior exam. No definite evidence for intraperitoneal free air is seen. Air is present in the rectum. IMPRESSION: 1. Interval removal of enteric tube. 2. Persistent air-filled loops of small bowel to the abdomen with some prominence of the bowel loops, left more than right. Findings do not appear appreciably changed from prior exam and may reflect an ileus or small-bowel obstruction. Continued follow-up is recommended. Interpreted by: Daquan Lara MD Signed by: Daquan Lara MD 07/24/23 Final result [facility] HealthcareRadiology Study observation (narrative)[facility] HealthcareXR ABDOMEN (2 VIEWS)Ordered By: Radiologist Radiology on [id number] [facility] Work Phone: XR ABDOMEN (2 VIEWS)on [id number]: TWO XRAY VIEWS OF THE ABDOMEN 07/23/2023 7:35 am COMPARISON: 07/21/2023 HISTORY: ORDERING SYSTEM PROVIDED HISTORY: SBO vs Ileuws TECHNOLOGIST PROVIDED HISTORY: SBO vs Ileuws FINDINGS: Enteric tube tip and side hole project at the level of the body of the stomach. Mildly prominent loops of small bowel in the mid abdomen. Nondistended colonic gas and rectal gas present. No evidence for free air. Slight blunting of the left costophrenic angle again noted. IMPRESSION: Findings most suggestive of ileus. Enteric tube terminates in appropriate position. Interpreted by: Daquan Mcdermott MD Signed by: Daquan Mcdermott MD 07/23/23 Final resultMHPTRadiology, Radiologist, - 07/23/2023 EXAMINATION: TWO XRAY VIEWS OF THE ABDOMEN 07/23/2023 7:35 am COMPARISON: 07/21/2023 HISTORY: ORDERING SYSTEM PROVIDED HISTORY: SBO vs Ileuws TECHNOLOGIST PROVIDED HISTORY: SBO vs Ileuws FINDINGS: Enteric tube tip and side hole project at the level of the body of the stomach. Mildly prominent loops of small bowel in the mid abdomen. Nondistended colonic gas and rectal gas present. No evidence for free air. Slight blunting of the left costophrenic angle again noted. IMPRESSION: Findings most suggestive of ileus. Enteric tube terminates in appropriate position. Interpreted by: Daquan Mcdermott MD Signed by: Daquan Mcdermott MD 07/23/23 Final result [facility] HealthcareRadiology Study observation (narrative)[facility] HealthcareXR ABDOMEN (2 VIEWS)Ordered By: Radiologist Radiology on [id number] Area District Hospital Work Phone: cBC with Auto Differentialon [id number] (Bld) [#/Vol]0.07 10*3/uLBON SECOURS MERCY HEALTHBasophils/100 WBC (Bld)1 %0 - 2 %[facility] HEALTHEosinophils (Bld) [#/Vol]0.28 10*3/uLBON SECOURS MERCY HEALTHEosinophils/100 WBC (Bld)3 %1 - 4 %[facility]PITALY HEALTHErythrocyte distribution width (RBC) [Ratio]12.7 %11.8 - 14.4 %[facility] Hematocrit (Bld) [Volume fraction]42.6 %40.7 - 50.3 %[facility]ALTH Hemoglobin (Bld) [Mass/Vol]13.2 g/dL13.0 - 17.0 g/dLBON SECOURS MERCY [facility]ALTH Immature granulocytes (Bld) [#/Vol]0.03 10*3/uLBON SECOURS MERCY [facility] TRUMBULLImmature granulocytes/100 WBC (Bld)0 %0B[facility] MER[facility] HEALTHInterpretation and review of laboratory resultsAbnormalBON SECOURS MERCY HEALTHLymphocytes/100 WBC (Bld)20 %Low24 - 43 %[facility] HEALTHLymphocytes/100 WBC (Bld)2.02 %[facility] HOSPITALY [facility] DAYTONH (RBC) [Entitic mass]32.7 pg25.2 - 33.5 pgBON SECOURS CLEVELAND CLINIC MENTOR HOSPITALY [facility] HEALTH DAYTONHC (RBC) [Mass/Vol]31.0 g/dL28.4 - 34.8 g/dLBON SECOURS MERCY KETTERING HEALTH DAYTONV (RBC) [Entitic vol]105.4 aAPxtx08.6 - 102.9 fLBON [facility] Monocytes/100 WBC (Bld)8 %3 - 12 %[facility] HEALTHMonocytes/100 WBC (Bld)0.83 %[facility] HEALTHNeutrophils/100 WBC (Bld)68 %High36 - 65 %[facility]JW MEDICAL CENTERNucleated RBC/100 WBC (Bld) [Ratio]0.0 %0.0 per 100 WBCCJW MEDICAL CENTERPlatelet mean volume (Bld) [Entitic vol]9.3 fL8.1 - 13.5 fL [facility] MEDICAL CENTERPlatelets (Bld) [#/Vol]289 10*3/uLCJW MEDICAL CENTERRBC (Bld) [#/Vol]4.04 10*6/uLLow4.21 - 5.77 m/uLCJW MEDICAL CENTER RBC (Bld) [#/Vol]MACROCYTOSIS PRESENTBON SELECT [facility] TRUMBULLSegmented neutrophils/100 WBC (Bld)6.73 %CJW MEDICAL CENTERWBC other (Bld) [#/Vol] 10.0B[facility] TRUMBULLBON [facility] TRUMBULLCBC with Diffon 06-21-2023 Abs. Basophil0.07 k/uLNormal0.00-0.20N[facility] Children'S HospitalComment on above: Performed By: #### DEYANIRA, CMPX, CDP #### [facility] [address] [place] [address] [employer]: Jaret Nguyen.Imm.Granulocyte0.03 k/uLNormal0.00-0.30 [facility] on above:Performed By: #### DEYANIRA, CMPX, CDP #### [facility] [address] [place] [address] [employer]: Jaret Nguyen.Neutrophil (Seg)6.73 k/uLNormal1.50-8.10 [facility] HospitalComsouthwest regional rehabilitation [facility] on above:Performed By: #### DEYANIRA, CMPX, CDP #### [facility] [address] [place] [address] [employer]: Hadley Smith MDBasophils/100 WBC (Bld)1 %Normal0-2Mer[facility] HospitalComment on above:Performed By: #### DEYANIRA, CMPX, CDP #### [facility] [address] [place] [address]. [place] [address] [employer]: MARISOL Nguyenosinophils (Bld) [#/Vol]0.28 10*3/uLNormal 0.00-0.44MerSaint Cabrini HospitalComment on above:Performed By: #### DEYANIRA, CMPX, CDP #### [facility] [address] [place] [address]. [place] [address] [employer]: MARISOL Nguyenosinophils/100 WBC (Bld)3 %Normal1-4[facility] Children'S HospitalComment on above:Performed By: #### DEYANIRA, CMPX, CDP #### [facility] [address] [place] [address] [employer]: Hadley Smith MDErythrocyte distribution width (RBC) [Ratio] 12.7 %Dokpoc92.8-14.4MerSaint Cabrini HospitalComment on above:Performed By: #### DEYANIRA, CMPX, CDP #### [facility] [address] [place] [address] [employer]: Hadley Smith MDHematocrit (Bld) [Volume fraction]42.6 %Normal 40.7-50.3[facility] John Medical CenterComment on above:Performed By: #### DEYANIRA, CMPX, CDP #### [facility] [address] [place] [address] [employer]: Hadley Smith MDHemoglobin (Bld) [Mass/Vol]13.2 g/dLNormal 13.0-17.0MerSaint Cabrini HospitalComment on above:Performed By: #### DEYANIRA, CMPX, CDP #### [facility] [address] [place], [place] [address], [place] [address] [employer]: Malou Nguyenture granulocytes/100 WBC (Bld)0 %Normal0 [facility] HospitalComsouthwest regional rehabilitation center on above:Performed By: #### DEYANIRA, CMPX, CDP #### [facility] [address] [place] [address] [employer]: Hadley Smith MDLymphocytes (Bld) [#/Vol]2.02 10*3/uLNormal 1.10-3.70[facility] HospitalComsouthwest regional rehabilitation center on above:Performed By: #### DEYANIRA, CMPX, CDP #### [facility] [address] [place] [address] [employer]: Luis Nguyenmphocytes/100 WBC (Bld)20 %Mqd55-44UrupxNationwide Children'S HospitalComsouthwest regional rehabilitation center on above:Performed By: #### DEYANIRA, CMPX, CDP #### [facility] [address] [place] [address] [employer]: FRANCHESCA Nguyen (RBC) [Entitic mass]32.7 gfXnztbb81.2-33.5 [facility] HospitalComsouthwest regional rehabilitation center on above:Performed By: #### DEYANIRA, CMPX, CDP #### [facility] [address] [place] [address] [employer]: FRANCHESCA NguyenC (RBC) [Mass/Vol]31.0 g/tLIlcoqr72.4-34.8 [facility] HospitalComsouthwest regional rehabilitation center on above:Performed By: #### DEYANIRA, CMPX, CDP #### [facility] [address] [place] [address] [employer]: DUKE NguyenCV (RBC) [Entitic vol]105.4 mDYasf12.6-102.9 [facility] HospitalComsouthwest regional rehabilitation center on above:Performed By: #### DEYANIRA, CMPX, CDP #### [facility] [address] [place] [address] [employer]: DUKE Nguyenonocytes (Bld) [#/Vol]0.83 10*3/uLNormal 0.10-1.20[facility] HospitalComsouthwest regional rehabilitation center on above:Performed By: #### DEYANIRA, CMPX, CDP #### [facility] [address] [place] [address] [employer]: DUKE Nguyenonocytes/100 WBC (Bld)8 %Normal3-12[facility] on above:Performed By: #### DEYANIRA, CMPX, CDP #### [facility] [address] [place] [address] [employer]: Chris Nguyenophil (Seg)68 %Mpzd90-72RcybgMercy Health Fairfield Hospital on above:Performed By: #### DEYANIRA, CMPX, CDP #### [facility] [address] [place] [address] [employer]: Hadley Smith MDNRBC Automated0.0 per 100 WBCNormal0.0[facility] on above:Performed By: #### DEYANIRA, CMPX, CDP #### [facility] [address] [place] [address] [employer]: VONDA Nguyenlatelet mean volume (Bld) [Entitic vol]9.3 fL Normal8.1-13.5[facility] on above:Performed By: #### DEYANIRA, CMPX, CDP #### [facility] [address] [place] [address] [employer]: Abel Nguyentelets (Bld) [#/Vol]289 10*3/bJHpyvgz806-500 [facility] HospitalComsouthwest regional rehabilitation center on above:Performed By: #### DEYANIRA, CMPX, CDP #### [facility] [address] [facility] [place] [address] [employer]: STEVE NguyenBC (Bld) [#/Vol]4.04 10*6/uLLow4.21-5.77[facility] HospitalComsouthwest regional rehabilitation center on above:Performed By: #### DEYANIRA, CMPX, CDP #### [facility] [address] [place] [address]. [place] [address] [employer]: RONNIE Nguyen morphology finding Nom (Bld)MACROCYTOSIS PRESENTNormalNationwide Children'S HospitalComsouthwest regional rehabilitation center on above:Performed By: #### DEYANIRA, CMPX, CDP #### [facility] [address] [facility] [place] [address] [employer]: CELINA Nguyen (Bld) [#/Vol]10.0 10*3/uLNormal3.5-11.3 [facility] on above:Performed By: #### DEYANIRA, CMPX, CDP #### [facility] [address] [place] [address]. [place] [address] [employer]: Genaro Nguyen Metabolic Pr/rfx MGon [id number] [Mass/Vol]4.2 g/dLNormal3.5-5.2MForks Community HospitalComsouthwest regional rehabilitation center on above:Performed By: #### DEYANIRA, CMPX, CDP #### [facility] [facility] [place] [address] [employer]: Linda Nguyen Wbde601 U/ZIrzt22-440EaofjNationwide Children'S HospitalComment on above:Performed By: #### DEYANIRA, CMPX, CDP #### [facility] [address] [place] [address] [employer]: Hadley Smith MDALT [Catalytic activity/Vol]17 U/LNormal5-41 [facility]S HospitalComment on above:Performed By: #### DEYANIRA, CMPX, CDP #### [facility] [address] [place] [address] [employer]: Hadley Smith MDAnion gap [Moles/Vol]14 mmol/LNormal9-17[facility] HospitalComsouthwest regional rehabilitation center on above:Performed By: #### DEYANIRA, CMPX, CDP #### [facility] [address] [place] [address] [employer]: Hadley Smith MDAST [Catalytic activity/Vol]16 U/LNormal<40 [facility]S HospitalComment on above:Performed By: #### DEYANIRA, CMPX, CDP #### [facility] [address] [place] [address] [employer]: Hadley Smith MDBilirubin [Mass/Vol]0.3 mg/dLNormal0.3-1.2[facility] [facility] [address] John Medical CenterComment on above:Performed By: #### DEYANIRA, CMPX, CDP #### [facility] [address] [place] [address] [employer]: Hadley Smith MDBUN/CRE Ycava83Nvko9-20OprgkNationwide Children'S Hospital Comment on above:Performed By: #### DEYANIRA, CMPX, CDP #### [facility] [address] [place] [address] [employer]: PATTI Ngyuenalcium [Mass/Vol]9.7 mg/dLNormal8.6-10.4[facility] HospitalComsouthwest regional rehabilitation center on above:Performed By: #### DEYANIRA, CMPX, CDP #### [facility] [address] [facility] [place] [address] [employer]: PATTI Nguyenhloride [Moles/Vol]110 mmol/URabr08-864NmvrfNationwide Children'S HospitalComsouthwest regional rehabilitation center on above:Performed By: #### DEYANIRA, CMPX, CDP #### [facility] [address] [place] [address]. [place] [address] [employer]: Hadley Smith MDCO2 [Moles/Vol]21 mmol/LTwxzno18-35KscnrMercy Health Fairfield Hospital on above:Performed By: #### DEYANIRA, CMPX, CDP #### [facility] [address] [place] [address]. [place] [address] [employer]: PATTI Nguyenreatinine [Mass/Vol]0.9 mg/dLNormal0.7-1.2 [facility] HospitalComsouthwest regional rehabilitation center on above:Performed By: #### DEYANIRA, CMPX, CDP #### [facility] [address] [place] [address]. [place] [address] [employer]: Hadley Smith MDGFR/1.73 sq M.predicted among non-blacks MDRD (S/P/Bld) [Vol rate/Area]mL/min/{1.73_m2}Normal>60[facility] HospitalComsouthwest regional rehabilitation center on above:Result Comment: These results are not intended for [...] or following therapy that affects renal tubular secretion.Performed By: #### DEYANIRA, CMPX, CDP #### [facility] [address] [place] [address] [employer]: Hadley Smith MDGlucose [Mass/Vol]95 mg/pHNojnmu94-85XbgnbForks Community HospitalComsouthwest regional rehabilitation center on above:Performed By: #### DEYANIRA, CMPX, CDP #### [facility] [address] [place] [address] [employer]: VONDA Nguyenotassium [Moles/Vol]4.3 mmol/LNormal3.7-5.3 [facility] HospitalComsouthwest regional rehabilitation center on above:Performed By: #### DEYANIRA, CMPX, CDP #### [facility] [address] [place] [address] [employer]: Hadley Smith MDProtein [Mass/Vol]7.7 g/dLNormal6.4-8.3MForks Community HospitalComsouthwest regional rehabilitation center on above:Performed By: #### DEYANIRA, CMPX, CDP #### [facility] [address] [place] [address] [employer]: GIN Nguyenodium [Moles/Vol]145 mmol/VYtnd045-836NciccNationwide Children'S HospitalComsouthwest regional rehabilitation center on above:Performed By: #### DEYANIRA, CMPX, CDP #### [facility] [address] [place] [address] [employer]: Hadley Smith MDUrea nitrogen [Mass/Vol]30 mg/dLHigh8-23[facility] HospitalComsouthwest regional rehabilitation center on above:Performed By: #### DEYANIRA, CMPX, CDP #### [facility] [address] [place] [address] [employer]: PATTI Nguyenomprehensive Metabolic Panel w/ Reflex to MGon [id number] [Mass/Vol]4.2 g/dL3.5 - 5.2 g/dLBON SECOURS MERCY HEALTHALP [Catalytic activity/Vol]133 U/LHigh40 - 129 U/LBON [facility]RS MERCY HEALTHALT [Catalytic activity/Vol]17 U/L5 - 41 U/LBON [facility] HEALTHAnion gap [Moles/Vol]14 mmol/L9 - 17 mmol/LBON SEC[facility]RS MERCY HEALTHAST [Catalytic activity/Vol]16 U/LNINF - 40 U/LBON SECOURS AdlogixY HEALTHBilirubin [Mass/Vol]0.3 mg/dL0.3 - 1.2 mg/dLB[facility]RS MERCY HEALTHCalcium [Mass/Vol]9.7 mg/dL8.6 - 10.4 mg/dLBON [facility]RS MERCY HEALTHChloride [Moles/Vol]110 mmol/LHigh98 - 107 mmol/LBON SECOURS [facility] HOSPITALY HEALTHCO2 [Moles/Vol]21 mmol/L20 - 31 mmol/LBON SECOURS AdlogixY HEALTHCreatinine [Mass/Vol]0.9 mg/dL0.7 - 1.2 mg/dLBON SECOURS [employer] HEALTHGFR/1.73 sq M.predicted MDRD (S/P/Bld) [Vol rate/Area]- PINFBON PLACENTIA-LINDA HOSPITALNeRRe TherapeuticsComment on above: These results are not intended [...] therapy that affects renal tubular secretion. Glucose [Mass/Vol]95 mg/dL70 - 99 mg/dLBON ARIZONA STATE HOSPITALIndiaHomes HEALTHInterpretation and review of laboratory resultsAbnormalBON SECOURS AdlogixY HEALTHPotassium [Moles/Vol]4.3 mmol/L3.7 - 5.3 mmol/LBON SECOURS AdlogixY HEALTHProtein [Mass/Vol] 7.7 g/dL6.4 - 8.3 g/dLBON SECOURS AdlogixY HEALTHSodium [Moles/Vol]145 mmol/LHigh 135 - 144 mmol/LBON SECOURS AdlogixY HEALTHUrea nitrogen [Mass/Vol]30 mg/dLHigh8 - 23 mg/dLBON SECOURS AdlogixY HEALTHUrea nitrogen/Creatinine [Mass ratio]33 mg/mg High9 - 20BON [facility] TRUM[facility]ULLFL SMALL BOWEL FOLLOW THROUGH ONLYon [id number] SMALL BOWEL FOLLOW THROUGH ONLYEXAMINATION: SMALL BOWEL FOLLOW THROUGH SERIES 06/21/2023 TECHNIQUE: Small bowel follow through series was performed with overhead images. FLUOROSCOPY DOSE AND TYPE: No real-time fluoroscopy. COMPARISON: Small-bowel fluoroscopy 06/13/2023, abdomen/CT 06/09/2023 HISTORY: ORDERING SYSTEM PROVIDED HISTORY: recurrent psbo TECHNOLOGIST PROVIDED HISTORY: Recurrent psbo please do contract modeler then give gastrograffin and get film q 4 hours until contrast reaches colon, if nausea or emesis please hook ng back to suction and call, otherwise clamp ng until study completed ie contrast into colon Reason for Exam: Abdominal pain 240 ml gastrografin introduced thru NG tube FINDINGS: Para Educator image of the abdomen demonstrates a nasogastric tube in place with side hole superimposed on the expected position of the stomach lumen, air-filled dilated loops of small bowel with relative sparing of the right hemiabdomen, and contrast from previous CT scan in the urinary bladder. Initial image after the administration of contrast per NG tube confirms contrast within the stomach lumen. By 4 hours, the contrast reached the colon in the right upper quadrant; contrast within a few loops of dilated small bowel could also be seen in the left hemiabdomen at this time. IMPRESSION: Contrast passage through dilated loops of small bowel and into the colon in the right upper quadrant by 4 hours. Interpreted by: Irwin Stark MD Signed by: Irwin Stark MD 06/21/[address] John Medical CenterContrast passage through dilated loops of small bowel and into the colon in the right upper quadrant by 4 hours. MHPN RIS CONSOLIDATEDEXAMINATION: SMALL BOWEL FOLLOW THROUGH SERIES 06/21/2023 TECHNIQUE: Small bowel follow through series was performed with overhead images. FLUOROSCOPY DOSE AND TYPE: No real-time fluoroscopy. COMPARISON: Small-bowel fluoroscopy 06/13/2023, abdomen/CT 06/09/2023 HISTORY: ORDERING SYSTEM PROVIDED HISTORY: recurrent psbo TECHNOLOGIST PROVIDED HISTORY: Recurrent psbo please do contract modeler then give gastrograffin and get film q 4 hours until contrast reaches colon, if nausea or emesis please hook ng back to suction and call, otherwise clamp ng until study completed ie contrast into colon Reason for Exam: Abdominal pain 240 ml gastrografin introduced thru NG tube FINDINGS: Para Educator image of the abdomen demonstrates a nasogastric tube in place with side hole superimposed on the expected position of the stomach lumen, air-filled dilated loops of small bowel with relative sparing of the right hemiabdomen, and contrast from previous CT scan in the urinary bladder. Initial image after the administration of contrast per NG tube confirms contrast within the stomach lumen. By 4 hours, the contrast reached the colon in the right upper quadrant; contrast within a few loops of dilated small bowel could also be seen in the left hemiabdomen at this time. Irwin Almonte MD - 06/21/2023 EXAMINATION: SMALL BOWEL FOLLOW THROUGH SERIES 06/21/2023 TECHNIQUE: Small bowel follow through series was performed with overhead images. FLUOROSCOPY DOSE AND TYPE: No real-time fluoroscopy. COMPARISON: Small-bowel fluoroscopy 06/13/2023, abdomen/CT 06/09/2023 HISTORY: ORDERING SYSTEM PROVIDED HISTORY: recurrent psbo TECHNOLOGIST PROVIDED HISTORY: Recurrent psbo please do contract modeler then give gastrograffin and get film q 4 hours until contrast reaches colon, if nausea or emesis please hook ng back to suction and call, otherwise clamp ng until study completed ie contrast into colon Reason for Exam: Abdominal pain 240 ml gastrografin introduced thru NG tube FINDINGS: Para Educator image of the abdomen demonstrates a nasogastric tube in place with side hole superimposed on the expected position of the stomach lumen, air-filled dilated loops of small bowel with relative sparing of the right hemiabdomen, and contrast from previous CT scan in the urinary bladder. Initial image after the administration of contrast per NG tube confirms contrast within the stomach lumen. By 4 hours, the contrast reached the colon in the right upper quadrant; contrast within a few loops of dilated small bowel could also be seen in the left hemiabdomen at this time. IMPRESSION: Contrast passage through dilated loops of small bowel and into the colon in the right upper quadrant by 4 hours. [facility] MEDICAL CENTERRadiology Study observation (narrative)[facility] SMALL BOWEL FOLLOW THROUGH ONLYOrdered By: Irwin Stark on [id number] PLACENTIA-LINDA HOSPITALNeRRe Therapeutics Work Phone: No Panel Informationon [id number] [facility] MED[facility] SPECIALTY HOSPITAL - TRUMBULLPhosphoruson [id number] [Mass/Vol]4.1 mg/dL2.5 - 4.5 mg/dLBON [facility] MED[facility] SPECIALTY [facility]OSPITAL - TRUMBULLPhosphorus, Inorg.on [id number], Inorg.4.1 mg/dL Normal2.5-4.5[facility] John Medical CenterComment on above:Performed By: #### DEYANIRA, CMPX, CDP #### [facility] [address] [place] [address] [employer]: Hadley Smith [facility] auto differentialon [id number] (Bld) [#/Vol]0.03 10*3/uLBON [facility] SPECIALTY [facility]OS[facility] - TRUMBULLBasophils/100 WBC (Bld)0 %0 - 2 %[facility] MEDICAL CENTEREosinophils (Bld) [#/Vol]0.18 10*3/uLBON [facility]OS[facility] - TRUMBULLEosinophils/100 WBC (Bld)3 %1 - 4 %[facility]W MEDICAL CENTERErythrocyte distribution width (RBC) [Ratio]11.9 %11.8 - 14.4 %[facility] Hematocrit (Bld) [Volume fraction]31.3 %Low40.7 - 50.3 %[facility] Hemoglobin (Bld) [Mass/Vol]10.6 g/dLLow13.0 - 17.0 g/dLBON [facility] Immature granulocytes (Bld) [#/Vol]BON [facility] TRUMBULLImmature granulocytes/100 WBC (Bld)0 %0BON [facility] TRUMBULLInterpretation and review of laboratory resultsAbnormalBON [facility]OS[facility] - TRUMBULLLymphocytes/100 WBC (Bld)31 %24 - 43 %[facility] MEDICAL CENTERLymphocytes/100 WBC (Bld)2.13 %[facility]NDO[facility]ORIAL HOSPITALH (RBC) [Entitic mass]33.5 pg25.2 - 33.5 pgBON MERCY HEALTH FAIRFIELD HOSPITALHC (RBC) [Mass/Vol]33.9 g/dL28.4 - 34.8 g/dLBON SECOURS [facility]ENTOR HOSPITALY HEALTHMCV (RBC) [Entitic vol]99.1 fL82.6 - 102.9 fLBON SECOURS CLEVELAND CLINIC MENTOR HOSPITALY HEALTHMonocytes/100 WBC (Bld)8 %3 - 12 %[facility]OSPITALY HEALTHMonocytes/100 WBC (Bld)0.57 %[facility] HOSPITALY HEALTHNeutrophils/100 WBC (Bld)58 %36 - 65 %[facility] HOSPITALY HEALTHNucleated RBC/100 WBC (Bld) [Ratio]0.0 %0.0 per 100 WBCBON SECOURS [facility] CLINIC MENTOR HOSPITALY HEALTHPlatelet mean volume (Bld) [Entitic vol]9.2 fL8.1 - 13.5 fLBON SECOURS [facility] HEALTHPlatelets (Bld) [#/Vol]179 10*3/uLBON SECOURS [facility] CLINIC MENTOR HOSPITALY HEALTHRBC (Bld) [#/Vol]3.16 10*6/uLLow4.21 - 5.77 m/uLBON SECOURS [facility] HEALTHSegmented neutrophils/100 WBC (Bld)4.02 %[facility] HEALTHWBC other (Bld) [#/Vol] 6.9B[facility] HEALTHComprehensive Metabolic Panel w/ Reflex to MGon [id number] [Mass/Vol]3.4 g/dLLow3.5 - 5.2 g/dLBON [facility]RS [facility] HEALTHAlbumin/Globulin [Mass ratio]1.2 {ratio}1.0 - 2.5B[facility] HOSPITALY HEALTHALP [Catalytic activity/Vol]93 U/L40 - 129 U/LBON [facility]RS [facility] HEALTHALT [Catalytic activity/Vol]9 U/L5 - 41 U/LBON [facility] HEALTHAnion gap [Moles/Vol]9 mmol/L9 - 17 mmol/LBON SECOURS [facility] HOSPITALY HEALTHAST [Catalytic activity/Vol]10 U/LNINF - 40 U/LBON [facility]OSPITALY HEALTHBilirubin [Mass/Vol]0.2 mg/dLLow0.3 - 1.2 mg/dLBON SECOURS [facility] HOSPITALY HEALTHCalcium [Mass/Vol]8.2 mg/dLLow8.6 - 10.4 mg/dLBON SECOURS MERCY HEALTHChloride [Moles/Vol]109 mmol/LHigh98 - 107 mmol/LBON [facility]OSP[facility] - TRUMBULLCO2 [Moles/Vol]22 mmol/L20 - 31 mmol/LBON [facility] TRUMBULLCreatinine [Mass/Vol]0.6 mg/dLLow0.7 - 1.2 mg/dLBON [facility] - TRUMBULLGFR/1.73 sq M.predicted MDRD (S/P/Bld) [Vol rate/Area]- PINFBON SELECT MEDICAL SPECIALTY HOSPITAL - TRUMBULLComment on above: These results are not intended [...] therapy that affects renal tubular secretion. Glucose [Mass/Vol]90 mg/dL70 - 99 mg/dLBON [facility] - TRUMBULLInterpretation and review of laboratory resultsAbnormWarren Memorial HospitalPotassium [Moles/Vol]3.3 mmol/LLow3.7 - 5.3 mmol/LBON [facility] TRUMBULLProtein [Mass/Vol]6.3 g/dLLow6.4 - 8.3 g/dLBON [facility]OSPITAL - TRUMBULLSodium [Moles/Vol]140 mmol/L135 - 144 mmol/LBON [facility]OS[facility] - TRUMBULLUrea nitrogen [Mass/Vol]12 mg/dL8 - 23 mg/dLBON [facility]TY [facility]OSPITAL - TRUMBULLUrea nitrogen/Creatinine [Mass ratio]20 mg/mg 9 - 20BON [facility] HOMEMagnesiumon 06-14-2023 Magnesium [Mass/Vol]2.4 mg/dL1.6 - 2.6 mg/dLBON [facility] Interpretation and review of laboratory resultsAbnormWarren Memorial Hospital Magnesium [Mass/Vol]1.3 mg/dLCritically low1.6 - 2.6 mg/dLBON [facility]OS[facility] AND NURSING HOMENo Panel Informationon [id number] [facility] TRUMBULLPotassiumon [id number] and review of laboratory results AbnormalBON [facility]OS[facility] - TRUMBULLPotassium [Moles/Vol]3.2 mmol/LLow3.7 - 5.3 mmol/LBON [facility] - TRUMBULLCBC auto differentialon [id number] (Bld) [#/Vol]0.04 10*3/uLBON [facility] - TRUMBULLBasophils/100 WBC (Bld)1 %0 - 2 %[facility] CENTEREosinophils (Bld) [#/Vol]0.26 10*3/uLBON SECOHIOHEALTH PICKERINGTON METHODIST HOSPITALEosinophils/100 WBC (Bld)4 %1 - 4 %[facility] MED[facility] CENTERErythrocyte distribution width (RBC) [Ratio]12.1 %11.8 - 14.4 %[facility] Hematocrit (Bld) [Volume fraction]31.5 %Low40.7 - 50.3 %[facility] Hemoglobin (Bld) [Mass/Vol]10.2 g/dLLow13.0 - 17.0 g/dLBON [facility] Immature granulocytes (Bld) [#/Vol][facility] CENTERImmature granulocytes/100 WBC (Bld)0 %0[facility] CENTERInterpretation and review of laboratory resultsAbnormalCJW MEDICAL CENTERLymphocytes/100 WBC (Bld)24 %24 - 43 %[facility] MEDICAL CENTERLymphocytes/100 WBC (Bld)1.55 %[facility]ORIAL HOSPITALH (RBC) [Entitic mass]33.3 pg25.2 - 33.5 pgSHENANDOAH MEMORIAL HOSPITALHC (RBC) [Mass/Vol]32.4 g/dL28.4 - 34.8 g/dLBON MER[facility] FAIRFIELD HOSPITALV (RBC) [Entitic vol]102.9 fL82.6 - 102.9 fLCJW MEDICAL CENTERMonocytes/100 WBC (Bld)8 %3 - 12 %[facility] CENTERMonocytes/100 WBC (Bld)0.50 %[facility] MEDICAL CENTERNeutrophils/100 WBC (Bld)63 %36 - 65 %[facility] MEDICAL CENTERNucleated RBC/100 WBC (Bld) [Ratio]0.0 %0.0 per 100 WBCBON SECOURS [facility] M[facility]OR HOSPITALY HEALTHPlatelet mean volume (Bld) [Entitic vol]9.2 fL8.1 - 13.5 fLBON SECOURS [facility]LEVELAND CLINIC [facility] HEALTHPlatelets (Bld) [#/Vol]169 10*3/uLB[facility] HEALTHRBC (Bld) [#/Vol]3.06 10*6/uLLow4.21 - 5.77 m/uLBON [facility] HEALTHSegmented neutrophils/100 WBC (Bld)4.02 %[facility] HEALTHWBC other (Bld) [#/Vol] 6.4[facility] HEALTHB[facility] HEALTHComprehensive Metabolic Panel w/ Reflex to MGon [id number] [Mass/Vol]3.3 g/dLLow3.5 - 5.2 g/dLB[facility] HEALTHAlbumin/Globulin [Mass ratio]1.4 {ratio}1.0 - 2.5B[facility] HEALTHALP [Catalytic activity/Vol]90 U/L40 - 129 U/LBON [facility] HEALTHALT [Catalytic activity/Vol]8 U/L5 - 41 U/LBON [facility] HEALTHAnion gap [Moles/Vol]10 mmol/L9 - 17 mmol/LBON [facility] MERCY HEALTHAST [Catalytic activity/Vol]8 U/LNINF - 40 U/LBON [facility] HEALTHBilirubin [Mass/Vol]0.2 mg/dLLow0.3 - 1.2 mg/dLBON [facility] HEALTHCalcium [Mass/Vol]8.4 mg/dLLow8.6 - 10.4 mg/dLBON [facility] HEALTHChloride [Moles/Vol]112 mmol/LHigh98 - 107 mmol/LBON [facility] HEALTHCO2 [Moles/Vol]22 mmol/L20 - 31 mmol/LBON [facility] HEALTHCreatinine [Mass/Vol]0.7 mg/dL0.7 - 1.2 mg/dLBON [facility] HEALTHGFR/1.73 sq M.predicted MDRD (S/P/Bld) [Vol rate/Area]- PINFBON SECOURS C[facility] CL[facility] HEALTHComment on above: These results are not intended [...] therapy that affects renal tubular secretion. Glucose [Mass/Vol]81 mg/dL70 - 99 mg/dLBON [facility] TRUMBULLInterpretation and review of laboratory resultsAbnormalBON [facility] TRUMBULLPotassium [Moles/Vol]4.1 mmol/L3.7 - 5.3 mmol/LBON [facility] HEALTHProtein [Mass/Vol] 5.7 g/dLLow6.4 - 8.3 g/dLBON [facility] TRUMBULLSodium [Moles/Vol]144 mmol/L135 - 144 mmol/LBON [facility] TRUMBULLUrea nitrogen [Mass/Vol]20 mg/dL8 - 23 mg/dLBON [facility] TRUMBULLUrea nitrogen/Creatinine [Mass ratio]29 mg/mgHigh9 - 20BON [facility] HOMECulture, Urineon 06-13-2023 Microorganism identified Cx Nom (Unsp spec)NO SIGNIFICANT GROWTHCJW MEDICAL CENTERSpecimen Description.CLEAN CATCH URINEBON BEN[facility] COUNTY [facility]OSP[facility] AND NURSING HOMEXR Chest Single View and Abdomen Supine and Upright and Lateral-decubituson . No acute cardiopulmonary process. 2. Scattered gas-filled large/small bowel loops throughout the abdomen and pelvis with several mildly distended gas-filled small bowel loops up to 4 cm. Findings may represent ileus versus partial/intermittent SBO. MHPN RIS CONSOLIDATEDEXAMINATION: TWO XRAY VIEWS OF THE ABDOMEN AND SINGLE XRAY VIEW OF THE CHEST 06/13/2023 9:31 am COMPARISON: CT scan of the abdomen and pelvis from 06/11/2023 HISTORY: ORDERING SYSTEM PROVIDED HISTORY: sbo vs ileus TECHNOLOGIST PROVIDED HISTORY: sbo vs ileus FINDINGS: Left-sided spinal stimulator device with catheter extending cervical region on the left. Interval right-sided PICC with tip position mid lower SVC. Cardiomediastinal shadow stable. Slight basilar atelectasis or scarring; no new pulmonary or significant pleural abnormality. No subdiaphragmatic free air. Will catheter. Scattered gas-filled large and small bowel loops throughout the abdomen and pelvis with several mildly distended gas-filled small bowel loops 4 cm. Some retained stool proximal transverse colon. No mass or organomegaly. No abnormal calcification appreciated. Extensive DJD spine. MHPN Daquan Mckeon MD - 06/13/2023 EXAMINATION: TWO XRAY VIEWS OF THE ABDOMEN AND SINGLE XRAY VIEW OF THE CHEST 06/13/2023 9:31 am COMPARISON: CT scan of the abdomen and pelvis from 06/11/2023 HISTORY: ORDERING SYSTEM PROVIDED HISTORY: sbo vs ileus TECHNOLOGIST PROVIDED HISTORY: sbo vs ileus FINDINGS: Left-sided spinal stimulator device with catheter extending cervical region on the left. Interval right-sided PICC with tip position mid lower SVC. Cardiomediastinal shadow stable. Slight basilar atelectasis or scarring; no new pulmonary or significant pleural abnormality. No subdiaphragmatic free air. Will catheter. Scattered gas-filled large and small bowel loops throughout the abdomen and pelvis with several mildly distended gas-filled small bowel loops 4 cm. Some retained stool proximal transverse colon. No mass or organomegaly. No abnormal calcification appreciated. Extensive DJD spine. IMPRESSION: 1. No acute cardiopulmonary process. 2. Scattered gas-filled large/small bowel loops throughout the abdomen and pelvis with several mildly distended gas-filled small bowel loops up to 4 cm. Findings may represent ileus versus partial/intermittent SBO. [facility] MEDICAL CENTERRadiology Study observation (narrative)[facility] Chest Single View and Abdomen Supine and Upright and Lateral-decubitus Ordered By: Daquan Shen on [id number] [employer] Work Phone: cbc auto differentialon [id number] (Bld) [#/Vol]0.04 10*3/uLBON [facility] TRUMBULLBasophils/100 WBC (Bld)0 %0 - 2 %[facility] MEDICAL CENTEREosinophils (Bld) [#/Vol]0.24 10*3/uLBON [facility] - TRUMBULLEosinophils/100 WBC (Bld)3 %1 - 4 %[facility] MEDICAL CENTERErythrocyte distribution width (RBC) [Ratio]12.7 %11.8 - 14.4 %[facility] Hematocrit (Bld) [Volume fraction]33.1 %Low40.7 - 50.3 %[facility] Hemoglobin (Bld) [Mass/Vol]10.8 g/dLLow13.0 - 17.0 g/dLBON [facility] Immature granulocytes (Bld) [#/Vol]BON [facility] HOSPITALImmature granulocytes/100 WBC (Bld)0 %0BON [facility] TRUMBULLInterpretation and review of laboratory resultsAbnormalBON SECOHIOHEALTH PICKERINGTON METHODIST HOSPITALLymphocytes/100 WBC (Bld)22 %Low24 - 43 %[facility] MEDICAL CENTERLymphocytes/100 WBC (Bld)2.02 %[facility]OSPITALH (RBC) [Entitic mass]33.2 pg25.2 - 33.5 pgBON [facility]FIELD HOSPITALHC (RBC) [Mass/Vol]32.6 g/dL28.4 - 34.8 g/dLBON [facility] TRUMBULLMCV (RBC) [Entitic vol]101.8 fL82.6 - 102.9 fLCJW MEDICAL CENTERMonocytes/100 WBC (Bld)7 %3 - 12 %[facility] CENTERMonocytes/100 WBC (Bld)0.59 %[facility] MEDICAL CENTERNeutrophils/100 WBC (Bld)68 %High36 - 65 %CJ[facility] MEDICAL CENTERNucleated RBC/100 WBC (Bld) [Ratio]0.0 %0.0 per 100 WBCCJW MEDICAL CENTERPlatelet mean volume (Bld) [Entitic vol]9.2 fL8.1 - 13.5 fLHONORHEALTH [facility]OTTSD[facility] SECSUR[facility] HEALTHPlatelets (Bld) [#/Vol]199 10*3/uLBON SECSURGICAL SPECIALTY CENTER HEALTHRBC (Bld) [#/Vol]3.25 10*6/uLLow4.21 - 5.77 m/uLBON SECOHIOHEALTH PICKERINGTON METHODIST HOSPITALSegmented neutrophils/100 WBC (Bld)6.14 %CJW MEDICAL CENTERWBC other (Bld) [#/Vol] 9.1BON [facility] TRUMBULLBON [facility] TRUMBULLComprehensive Metabolic Panel w/ Reflex to MGon [id number] [Mass/Vol]3.4 g/dLLow3.5 - 5.2 g/dLBON [facility] TRUMBULLAlbumin/Globulin [Mass ratio]1.2 {ratio}1.0 - 2.5BON [facility]OS[facility] - TRUMBULLALP [Catalytic activity/Vol]103 U/L40 - 129 U/LBON [facility] TRUMBULLALT [Catalytic activity/Vol]11 U/L5 - 41 U/LBON [facility] TRUMBULLAnion gap [Moles/Vol]8 mmol/LLow9 - 17 mmol/LBON [facility] HEALTHAST [Catalytic activity/Vol]9 U/LNINF - 40 U/LBON [facility] TRUMBULLBilirubin [Mass/Vol]0.2 mg/dLLow0.3 - 1.2 mg/dLBON [facility] TRUMBULLCalcium [Mass/Vol]8.2 mg/dLLow8.6 - 10.4 mg/dLBON [facility] TRUMBULLChloride [Moles/Vol]112 mmol/LHigh98 - 107 mmol/LBON [facility] TRUMBULLCO2 [Moles/Vol]22 mmol/L20 - 31 mmol/LBON [facility] TRUMBULLCreatinine [Mass/Vol]0.9 mg/dL0.7 - 1.2 mg/dLBON [facility] TRUMBULLGFR/1.73 sq M.predicted MDRD (S/P/Bld) [Vol rate/Area]- PINFBON [facility]TY [facility]OSP[facility] - TRUMBULLComment on above: These results are not intended [...] therapy that affects renal tubular secretion. Glucose [Mass/Vol]90 mg/dL70 - 99 mg/dLBON [facility] TRUMBULLInterpretation and review of laboratory resultsAbnormalBON [facility] HEALTHPotassium [Moles/Vol]3.9 mmol/L3.7 - 5.3 mmol/LBON SECIndiaH[facility] HEALTHProtein [Mass/Vol] 6.3 g/dLLow6.4 - 8.3 g/dLBON SECIndiaHomes HEALTHSodium [Moles/Vol]142 mmol/L135 - 144 mmol/LBON SECIndiaHomes HEALTHUrea nitrogen [Mass/Vol]36 mg/dLHigh8 - 23 mg/dLBON SECIndiaHomes HEALTHUrea nitrogen/Creatinine [Mass ratio]40 mg/mgHigh9 - 20BON SECArmorText HEALTHEKG 12 LeadOrdered By: Lizz Modi on [id number] [id number] [employer] Work Phone: P [id number] [employer] Work Phone: P-R [id number] [facility] [employer] Work Phone: Q-T [id number] [facility] [employer] Work Phone: QRS [id number] [facility] [employer] Work Phone: [phone] Calculation (Bazett)445 [facility] [employer] Work Phone: R [id number] [employer] Work Phone: [phone] [id number] [employer] Work Phone: [id number] [employer] Work Phone: BON [employer] Work Phone: [phone] 12 Leadon [id number] tachycardia Nonspecific T wave abnormality Abnormal ECG When compared with ECG of 12-JUN-2022 09:46, No significant change was found Confirmed by LIZZ MODI ([id number]) on 06/12/2023 3:58:35 PMPN [facility] HospitalLizz MD - 06/12/2023 Sinus tachycardia Nonspecific T wave abnormality Abnormal ECG When compared with ECG of 12-JUN-2022 09:46, No significant change was found Confirmed by LIZZ MODI ([id number]) on 06/12/2023 3:58:35 PM CJ[facility] MEDICAL CENTEREKG Rhythm Stripon [id number] HEALTH EAST VALLEY REH[facility]IL[facility]PITAL - GILBERTGlucose, Whole Bloodon [id number] [Mass/Vol]80 mg/dL74 - 100 mg/dLBON [facility] NURSING HOMELactic Acidon 06-12-2023 Lactate (BldV) [Moles/Vol]0.6 mmol/L0.5 - 2.2 mmol/LBON [facility] NURSING HOMECBC with Auto Differentialon [id number] (Bld) [#/Vol]0.04 10*3/uLBON [facility] TRUMBULLBasophils/100 WBC (Bld)0 %0 - 2 %[facility] CENTEREosinophils (Bld) [#/Vol][facility] Eosinophils/100 WBC (Bld)0 %Low1 - 4 %[facility] MEDICAL CENTERErythrocyte distribution width (RBC) [Ratio]12.4 %11.8 - 14.4 %[facility] Hematocrit (Bld) [Volume fraction]48.1 %40.7 - 50.3 %[facility] Hemoglobin (Bld) [Mass/Vol]16.0 g/dL13.0 - 17.0 g/dLBON [facility] Immature granulocytes (Bld) [#/Vol]0.07 10*3/uLBON [facility] TRUMBULLImmature granulocytes/100 WBC (Bld)0 %0C[facility]ICAL CENTERInterpretation and review of laboratory resultsAbnormalCJW MEDICAL CENTERLymphocytes/100 WBC (Bld)6 %Low24 - 43 %[facility] MEDICAL CENTERLymphocytes/100 WBC (Bld)0.92 %LowCJW MEDICAL CENTERMCH (RBC) [Entitic mass]33.5 pg25.2 - 33.5 pgCJW MEDICAL CENTERMCHC (RBC) [Mass/Vol]33.3 g/dL28.4 - 34.8 g/dLBON [facility] TRUMBULLMCV (RBC) [Entitic vol]100.6 fL82.6 - 102.9 fLCJW MEDICAL CENTER Monocytes/100 WBC (Bld)5 %3 - 12 %[facility] CENTERMonocytes/100 WBC (Bld)0.85 %[facility] MEDICAL CENTERNeutrophils/100 WBC (Bld)89 %High36 - 65 %[facility] MEDICAL CENTERNucleated RBC/100 WBC (Bld) [Ratio]0.0 %0.0 per 100 WBCCJW MEDICAL CENTERPlatelet mean volume (Bld) [Entitic vol]9.1 fL8.1 - 13.5 fL BON [facility] - TRUMBULLPlatelets (Bld) [#/Vol]312 10*3/uLBON [facility]OS[facility] - TRUMBULLRBC (Bld) [#/Vol]4.78 10*6/uL4.21 - 5.77 m/uLBON [facility] Segmented neutrophils/100 WBC (Bld)14.78 %HighBON SELECT MEDICAL SPECIALTY HOSPITAL - TRUMBULLWBC other (Bld) [#/Vol]16.7HighBON [facility]OS[facility] AND NURSING HOMECT Abdomen and Pelvis W contrast Sky . Small bowel distension without focal transition point identified. There is also a mild amount of liquid stool in the colon. These findings are most suggestive of ileus and diarrheal process versus partial obstructing process. 2. Additional chronic and benign findings, as described. [facility] RIS CONSOLIDATEDEXAMINATION: CT OF THE ABDOMEN AND PELVIS WITH CONTRAST 06/11/2023 12:18 pm TECHNIQUE: CT of the abdomen and pelvis was performed with the administration of intravenous contrast. Multiplanar reformatted images are provided for review. Automated exposure control, iterative reconstruction, and/or weight based adjustment of the mA/kV was utilized to reduce the radiation dose to as low as reasonably achievable. COMPARISON: 04/23/2023. HISTORY: ORDERING SYSTEM PROVIDED HISTORY: r/o SBO TECHNOLOGIST PROVIDED HISTORY: r/o SBO Decision Support Exception - unselect if not a suspected or confirmed emergency medical condition->Emergency Medical Condition (MA) FINDINGS: Lower Chest: No acute findings. Organs: Motion artifact noted. The liver, pancreas, spleen, kidneys, and adrenals reveal no acute findings. Fluid density with peripheral calcification in the lateral subcapsular left kidney is noted, likely sequela of old subcapsular hematoma. No inflammatory change identified in the gallbladder fossa. GI/Bowel: The stomach is well distended with ingested material. Mild amount of liquid stool throughout the colon and fluid within small bowel. There is mild small bowel distension with gradual transition in the right abdomen, favoring ileus versus partial obstructing process. Small bowel anastomosis in the left abdomen again noted. Pelvis: The bladder is well distended. No acute findings identified. Peritoneum/Retroperitoneum: No free air or free fluid. The aorta is normal in caliber. The visceral branches are patent. Calcified atheromatous plaque is present. No lymphadenopathy. Contrast is present in the left femoral venous system, left common iliac vein and IVC, which may be due to contrast injection. Bones/Soft Tissues: No acute findings identified. Advanced multilevel degenerative disc disease with marginal hypertrophic changes throughout the lumbar spine. Daquan Nava MD - 06/11/2023 EXAMINATION: CT OF THE ABDOMEN AND PELVIS WITH CONTRAST 06/11/2023 12:18 pm TECHNIQUE: CT of the abdomen and pelvis was performed with the administration of intravenous contrast. Multiplanar reformatted images are provided for review. Automated exposure control, iterative reconstruction, and/or weight based adjustment of the mA/kV was utilized to reduce the radiation dose to as low as reasonably achievable. COMPARISON: 04/23/2023. HISTORY: ORDERING SYSTEM PROVIDED HISTORY: r/o SBO TECHNOLOGIST PROVIDED HISTORY: r/o SBO Decision Support Exception - unselect if not a suspected or confirmed emergency medical condition->Emergency Medical Condition (MA) FINDINGS: Lower Chest: No acute findings. Organs: Motion artifact noted. The liver, pancreas, spleen, kidneys, and adrenals reveal no acute findings. Fluid density with peripheral calcification in the lateral subcapsular left kidney is noted, likely sequela of old subcapsular hematoma. No inflammatory change identified in the gallbladder fossa. GI/Bowel: The stomach is well distended with ingested material. Mild amount of liquid stool throughout the colon and fluid within small bowel. There is mild small bowel distension with gradual transition in the right abdomen, favoring ileus versus partial obstructing process. Small bowel anastomosis in the left abdomen again noted. Pelvis: The bladder is well distended. No acute findings identified. Peritoneum/Retroperitoneum: No free air or free fluid. The aorta is normal in caliber. The visceral branches are patent. Calcified atheromatous plaque is present. No lymphadenopathy. Contrast is present in the left femoral venous system, left common iliac vein and IVC, which may be due to contrast injection. Bones/Soft Tissues: No acute findings identified. Advanced multilevel degenerative disc disease with marginal hypertrophic changes throughout the lumbar spine. IMPRESSION: 1. Small bowel distension without focal transition point identified. There is also a mild amount of liquid stool in the colon. These findings are most suggestive of ileus and diarrheal process versus partial obstructing process. 2. Additional chronic and benign findings, as described. [facility] CENTERBON [facility] TRUMBULLRadiology Study observation (narrative)[facility]ICAL CENTERComprehensive Metabolic Panelon 06-11-2023 Albumin [Mass/Vol]4.7 g/dL3.5 - 5.2 g/dLBON [facility] TRUMBULLAlbumin/Globulin [Mass ratio]1.1 {ratio}1.0 - 2.5BON [facility]OS[facility] - TRUMBULLALP [Catalytic activity/Vol]167 U/LHigh40 - 129 U/LBON [facility]OS[facility] - TRUMBULLALT [Catalytic activity/Vol]18 U/L5 - 41 U/LBON [facility] [employer] BlackAnion gap [Moles/Vol]15 mmol/L9 - 17 mmol/LBON [facility] Carbon BlackAST [Catalytic activity/Vol]18 U/L NINF - 40 U/LBON [facility] [employer] BlackBilirubin [Mass/Vol]0.5 mg/dL0.3 - 1.2 mg/dLBON [facility] [employer] BlackCalcium [Mass/Vol]10.1 mg/dL8.6 - 10.4 mg/dLBON [facility] [employer] BlackChloride [Moles/Vol]102 mmol/L98 - 107 mmol/LBON [facility] Carbon BlackCO2 [Moles/Vol]23 mmol/L20 - 31 mmol/LBON [facility] [employer] Creatinine [Mass/Vol]1.6 mg/dLHigh0.7 - 1.2 mg/dLBON [facility] [employer] GFR/1.73 sq M.predicted MDRD (S/P/Bld) [Vol rate/Area]47 mL/min/{1.73_m2}Low- PINFBON [facility]TY [facility]OSPITAL - TRUMBULLComment on above: These results are not intended [...] therapy that affects renal tubular secretion. Glucose [Mass/Vol]134 mg/nSXrhc63 - 99 mg/dLBON [facility] Interpretation and review of laboratory resultsAbnormalBON [facility] Potassium [Moles/Vol]4.7 mmol/L3.7 - 5.3 mmol/LBON [facility]DA HOSPITALGotuit [facility] TRUMBULLProtein [Mass/Vol]9.1 g/dLHigh6.4 - 8.3 g/dLBON [facility] - TRUMBULLSodium [Moles/Vol] 140 mmol/L135 - 144 mmol/LBON [facility] TRUMBULLUrea nitrogen [Mass/Vol]46 mg/dLHigh8 - 23 mg/dLBON [facility]OS[facility] - TRUMBULLUrea nitrogen/Creatinine [Mass ratio]29 mg/mgHigh9 - 20BON [facility] TRUMBULLCritical Careon [id number] Gill DO 06/11/2023 4:26 PM Critical Care Performed by: Hadley Gill DO Authorized by: Hadley Gill DO Critical care provider statement: Critical care time (minutes): 39 Critical care time was exclusive of: Separately billable procedures and treating other patients Critical care was necessary to treat or prevent imminent or life-threatening deterioration of the following conditions: Sepsis, metabolic crisis, dehydration and circulatory failure Critical care was time spent personally by me on the following activities: Blood draw for specimens, development of treatment plan with patient or surrogate, discussions with consultants, evaluation of patient's response to treatment, examination of patient, obtaining history from patient or surrogate, review of old charts, re-evaluation of patient's condition, pulse oximetry, ordering and review of radiographic studies, ordering and review of laboratory studies and ordering and performing treatments and interventions I assumed direction of critical care for this patient from another provider in my specialty: no Care discussed with: admitting providerVIRGINIA HOSPITAL CENTEREKG Rhythm Stripon [id number] NORTH HOSPITAL LABCJW MEDICAL CENTERLactate, Sepsison [id number] and review of laboratory resultsAbnormWarren Memorial HospitalLactate (BldV) [Moles/Vol]2.5 mmol/LHigh 0.5 - 1.9 mmol/LBON [facility] NURSING HOMEInterpretation and review of laboratory resultsAbnormWarren Memorial HospitalLactate (BldV) [Moles/Vol]2.3 mmol/LHigh0.5 - 1.9 mmol/LBON [facility] NURSING HOMELipaseon [id number] [Catalytic activity/Vol]26 U/L13 - 60 U/L [facility] Panel Informationon [id number] Medical Centerable XR Chest AP single viewon [id number] acute airspace disease identified. [facility] CONSOLIDATEDEXAMINATION: ONE XRAY VIEW OF THE CHEST 06/11/2023 11:49 am COMPARISON: 04/25/2023 HISTORY: ORDERING SYSTEM PROVIDED HISTORY: abd pain TECHNOLOGIST PROVIDED HISTORY: abd pain FINDINGS: The cardiomediastinal silhouette is unchanged in appearance. There is no consolidation, pneumothorax, or evidence of edema. No effusion is appreciated. The osseous structures are unchanged in appearance. Neurostimulator with lead projecting over the left neck again noted. [facility] Daquan Royal MD - 06/11/2023 EXAMINATION: ONE XRAY VIEW OF THE CHEST 06/11/2023 11:49 am COMPARISON: 04/25/2023 HISTORY: ORDERING SYSTEM PROVIDED HISTORY: abd pain TECHNOLOGIST PROVIDED HISTORY: abd pain FINDINGS: The cardiomediastinal silhouette is unchanged in appearance. There is no consolidation, pneumothorax, or evidence of edema. No effusion is appreciated. The osseous structures are unchanged in appearance. Neurostimulator with lead projecting over the left neck again noted. IMPRESSION: No acute airspace disease identified. [facility] CENTERRadiology Study observation (narrative)[facility] HEALTHPortable XR Chest AP single viewOrdered By: Daquan Mcdermott on [id number] [employer]CE[employer] PartnersY HEALTH Work Phone: Troponinon [id number] I.cardiac High sensitivity method [Mass/Vol]17 ng/L0 - 22 ng/LBON [facility] HEALTHComment on above:High Sensitivity Troponin values cannot be compared with other Troponin methodologies.[facility] HEALTHUrinalysis with Microscopicon 06-11-2023 Bacteria LM Ql (Urine sed)TRACEAbnormalNoneBON [facility] MERCY HEALTHBilirubin Ql (U)NegativeNEGATIVEB[facility] HEALTHClarity (U)ClearClearB[facility] HEALTHColor (U)YellowYellowBON [facility]RS MERCY HEALTHEpithelial cells LM.HPF (Urine sed) [#/Area]0 TO 2B[facility] HEALTHGlucose Test strip (U) [Mass/Vol]NegativeNEGATIVE mg/dLB[facility]CY HEALTHHemoglobin Auto test strip Ql (U)NegativeNEGATIVEB[facility] HEALTHInterpretation and review of laboratory resultsAbnormalBON [facility] MERCY HEALTHKetones (U) [Mass/Vol] NegativeNEGATIVE mg/dLBON [facility] HEALTHLeukocyte esterase Test strip Ql (U)NegativeNEGATIVEBON [facility] MERCY HEALTHMucus Ql (Urine sed)TRACEAbnormalNone [facility] HEALTHNitrite Ql (U)NegativeNEGATIVEBON [facility] MERCY HEALTHpH (U)6.0 [pH]5.0 - 9.0[facility] HEALTHProtein (U) [Mass/Vol]Negative NEGATIVE mg/dLBON [facility] MERCY HEALTHRBC LM.HPF (Urine sed) [#/Area]NoneBON [facility] MERCY HEALTHSpecific gravity (U) [Rel density]1.0151.010 - 1.020B[facility] HEALTHUrobilinogen Qn (U)Normal0.0 - 1.0 EU/dLBON [facility]RS MERCY HEALTHWBC LM.HPF (Urine sed) [#/Area]0 TO 2B[facility] HEALTHB[facility] MERCY HEALTHBasic Metabolic Profon [id number] gap [Moles/Vol]5 mmol/LLow 9-17Nationwide Children'S HospitalComment on above:Performed By: #### HH #### [facility] [address] [place] [address] [employer]: Hadley Smith MDBUN/CRE [id number] Children'S Hospital Comment on above:Performed By: #### HH #### [facility] [address] [place] [address] [employer]: PATTI Nguyenalcium [Mass/Vol]8.2 mg/dLLow8.6-10.4Nationwide Children'S HospitalComment on above:Performed By: #### HH #### [facility] [address] [place] [id number] [employer]: PATTI Nguyenhloride [Moles/Vol]109 mmol/LIylp75-095FrahqNationwide Children'S HospitalComment on above:Performed By: #### HH #### [facility] [place] [address] [employer]: PATTI NguyenO2 [Moles/Vol]28 mmol/OWksgog82-72ZhnziNationwide Children'S HospitalComment on above:Performed By: #### HH #### [facility] [address] [place] [address] [employer]: PATTI Nguyenreatinine [Mass/Vol]0.9 mg/dLNormal0.7-1.2 [facility]S HospitalComment on above:Performed By: #### HH #### [facility] [place] [address] [employer]: Hadley Smith MDGFR/1.73 sq M.predicted among non-blacks MDRD (S/P/Bld) [Vol rate/Area]mL/min/{1.73_m2}Normal>60[facility] John Medical CenterComment on above:Result Comment: These results are not intended for [...] or following therapy that affects renal tubular secretion.Performed By: #### HH #### [facility] [address] [place] [address] [employer]: Hadley Smith MDGlucose [Mass/Vol]105 mg/hSDcle94-94Owluu [facility] John Medical CenterComment on above:Performed By: #### HH #### [facility] [address] [place] [address] [employer]: VONDA Nguyenotassium [Moles/Vol]4.6 mmol/LNormal3.7-5.3 [facility] HospitalComsouthwest [facility] on above:Performed By: #### HH #### [facility] [address] [place] [address] [employer]: GIN Nguyenodium [Moles/Vol]142 mmol/KBebrco863-185LwcepNationwide Children'S HospitalComsouthwest regional rehabilitation center on above:Performed By: #### HH #### [facility] [place] [address] [employer]: Hadley Smith MDUrea nitrogen [Mass/Vol]5 mg/dLLow8-23[facility] HospitalComsouthwest regional rehabilitation center on above:Performed By: #### HH #### [facility] [address] [place] [address] [employer]: Rasheeda Nguyengnesiumon 23-58-8170Ndcferrqp [Mass/Vol]1.4 mg/dLLow1.6-2.6Mer[facility] John Medical CenterComment on above:Performed By: #### HH #### [facility] [address] [place] [address] [employer]: Sangeetha Nguyen Metabolic Profon 90-03-4309Vsgrf gap [Moles/Vol]7 mmol/LLow9-17N[facility] Children'S HospitalComment on above:Performed By: #### LACDS #### [facility] [address] [facility] [place] [address] [employer]: EDITH NguyenN/CRE RatioCan not be calculatedNormal9-20 [facility]S HospitalComment on above:Performed By: #### LACDS #### [facility] [address] [place] [address] [employer]: PATTI Nguyenalcium [Mass/Vol]8.3 mg/dLLow8.6-10.4[facility]'S HospitalComment on above:Performed By: #### LACDS #### [facility] [address] [place] [address] [employer]: PATTI Nguyenhloride [Moles/Vol]111 mmol/WVlxy84-610SekxnSaint Cabrini HospitalComment on above:Performed By: #### LACDS #### [facility] [address] [place] [address] [employer]: PATTI NguyenO2 [Moles/Vol]25 mmol/YZzkgfp84-78MhtshNationwide Children'S HospitalComsouthwest regional rehabilitation center on above:Performed By: #### LACDS #### [facility] [address] [place] [address] [employer]: PATTI Nguyenreatinine [Mass/Vol]0.8 mg/dLNormal0.7-1.2 [facility]S HospitalComment on above:Performed By: #### LACDS #### [facility] [address] [place] [address] [employer]: Hadley Smith MDGFR/1.73 sq M.predicted among non-blacks MDRD (S/P/Bld) [Vol rate/Area]mL/min/{1.73_m2}Normal>60MerSaint Cabrini HospitalComment on above:Result Comment: These results are not intended for [...] or following therapy that affects renal tubular secretion.Performed By: #### LACDS #### [facility] [address] [place] [address]. [place] [address] [employer]: Hadley Smith MDGlucose [Mass/Vol]92 mg/mIZgltes37-90Hxodg [facility] John Medical CenterComment on above:Performed By: #### LACDS #### [facility] [address] [place] [address]. [place] [address] [employer]: VONDA Nguyenotassium [Moles/Vol]3.3 mmol/LLow3.7-5.3[facility] John Medical CenterComment on above:Performed By: #### LACDS #### [facility] [address] [place] [address]. [place] [address] [employer]: GIN Nguyenodium [Moles/Vol]143 mmol/XFhkpmu348-151FpnbsSaint Cabrini HospitalComment on above:Performed By: #### LACDS #### [facility] [address] [place] [address] [employer]: Hadley Smith MDUrea nitrogen [Mass/Vol]mg/dLLow8-23[facility]'S HospitalComment on above:Performed By: #### LACDS #### [facility] [address] [facility] [place] [address] [employer]: Sangeetha Nguyen Metabolic Profon 27-80-1913Bhlmj gap [Moles/Vol]6 mmol/LLow9-17MerSaint Cabrini HospitalComment on above:Performed By: #### BMPX, CDP #### [facility] [address] [place] [address]. [place] [address] [employer]: Hadley Smith MDBUN/CRE Nifiq6Swj9-54MjiioNationwide Children'S Hospital Comment on above:Performed By: #### BMPX, CDP #### [facility] [address] [place] [address]. [place] [address] [employer]: PATTI Nguyenalcium [Mass/Vol]7.9 mg/dLLow8.6-10.4[facility] Children'S HospitalComment on above:Performed By: #### BMPX, CDP #### [facility] [address] [place] [address]. [place] [address] [employer]: PATTI Nguyenhloride [Moles/Vol]113 mmol/WZqfn93-202ZfusuSaint Cabrini HospitalComsouthwest regional rehabilitation center on above:Performed By: #### BMPX, CDP #### [facility] [address] [place] [address]. [place] [address] [employer]: PATTI NguyenO2 [Moles/Vol]23 mmol/WGctdba47-57IwiabSaint Cabrini HospitalComment on above:Performed By: #### BMPX, CDP #### [facility] [address] [place] [address]. [place] [address] [employer]: PATTI Nguyenreatinine [Mass/Vol]0.7 mg/dLNormal0.7-1.2 [facility]S HospitalComment on above:Performed By: #### BMPX, CDP #### [facility] [address] [place] [address] [employer]: Hadley Smith MDGFR/1.73 sq M.predicted among non-blacks MDRD (S/P/Bld) [Vol rate/Area]mL/min/{1.73_m2}Normal>60MerSaint Cabrini HospitalComment on above:Result Comment: These results are not intended for [...] or following therapy that affects renal tubular secretion.Performed By: #### BMPX, CDP #### [facility] [address] [place] [address] [employer]: Hadley Smtih MDGlucose [Mass/Vol]97 mg/qEAakygm60-87Ljnhz [facility] John Medical CenterComment on above:Performed By: #### BMPX, CDP #### [facility] [address] [place] [address] [employer]: VONDA Nguyenotassium [Moles/Vol]3.7 mmol/LNormal3.7-5.3 [facility]S HospitalComment on above:Performed By: #### BMPX, CDP #### [facility] [address] [place] [address] [employer]: GIN Nguyenodium [Moles/Vol]142 mmol/YYkzlle832-755TcgdiNationwide Children'S HospitalComment on above:Performed By: #### BMPX, CDP #### [facility] [place] [address] [employer]: Pavel Nguyen nitrogen [Mass/Vol]2 mg/dLLow8-23[facility] HospitalComsouthwest regional rehabilitation center on above:Performed By: #### BMPX, CDP #### [facility] [address] [place] [address] [employer]: Hadley Smith [facility] with Diffon 25-53-5821Thl. Basophil0.04 k/uLNormal0.00-0.20[facility] HospitalComsouthwest regional rehabilitation center on above:Performed By: #### BMPX, CDP #### [facility] [address] [place] [address] [employer]: Jaret Nguyen.Imm.Granulocyte0.01 k/uLNormal0.00-0.30 [facility] HospitalComsouthwest regional rehabilitation center on above:Performed By: #### BMPX, CDP #### [facility] [address] [place] [address] [employer]: Jaret Nguyen.Neutrophil (Seg)2.76 k/uLNormal1.50-8.10 [facility] HospitalComsouthwest regional rehabilitation center on above:Performed By: #### BMPX, CDP #### [facility] [address] [place] [address] [employer]: Hadley Smith MDBasophils/100 WBC (Bld)1 %Normal0-2MForks Community HospitalComsouthwest regional rehabilitation center on above:Performed By: #### BMPX, CDP #### [facility] [address] [place] [address] [employer]: MARISOL Nguyenosinophils (Bld) [#/Vol]0.16 10*3/uLNormal 0.00-0.44[facility] Children'S HospitalComment on above:Performed By: #### BMPX, CDP #### [facility] [address] [place] [address] [employer]: MARISOL Nguyenosinophils/100 WBC (Bld)3 %Normal1-4[facility] HospitalComsouthwest regional rehabilitation center on above:Performed By: #### BMPX, CDP #### [facility] [address] [place] [address] [employer]: Hadley Smith MDErythrocyte distribution width (RBC) [Ratio] 12.8 %Kjnolo75.8-14.4[facility] Children'S HospitalComment on above:Performed By: #### BMPX, CDP #### [facility] [address] [place] [address] [employer]: Hadley Smith MDHematocrit (Bld) [Volume fraction]30.3 %Low 40.7-50.3Msumma healthy [facility] Medical CenterComsouthwest regional rehabilitation center on above:Performed By: #### BMPX, CDP #### [facility] [address] [place] [address] [employer]: Hadley Smith MDHemoglobin (Bld) [Mass/Vol]9.7 g/dLLow13.0-17.0 [facility] HospitalComsouthwest regional rehabilitation center on above:Performed By: #### BMPX, CDP #### [facility] [address] [place] [address] [employer]: Hadley Smith MDImmature granulocytes/100 WBC (Bld)0 %Normal0 [facility] HospitalComsouthwest regional rehabilitation center on above:Performed By: #### BMPX, CDP #### [facility] [address] [place] [address] [employer]: Luis Nguyenmphocytes (Bld) [#/Vol]1.65 10*3/uLNormal 1.10-3.70[facility] HospitalComsouthwest regional rehabilitation center on above:Performed By: #### BMPX, CDP #### [facility] [place] [address] [employer]: Silas Nguyenhocytes/100 WBC (Bld)32 %Pnedtz88-87EytfsNationwide Children'S HospitalComsouthwest regional rehabilitation center on above:Performed By: #### BMPX, CDP #### [facility] [address] [place] [address] [employer]: DUKE NguyenCH (RBC) [Entitic mass]32.8 ikBtiisr40.2-33.5 [facility]S HospitalComment on above:Performed By: #### BMPX, CDP #### [facility] [address] [place] [address] [employer]: DUKE NguyenCHC (RBC) [Mass/Vol]32.0 g/bZBpbazj62.4-34.8 [facility]S HospitalComment on above:Performed By: #### BMPX, CDP #### [facility] [address] [place] [address] [employer]: DUKE NguyenCV (RBC) [Entitic vol]102.4 oBYmzwtw46.6-102.9 [facility] HospitalComsouthwest regional rehabilitation center on above:Performed By: #### BMPX, CDP #### [facility] [address] [place] [address] [employer]: DUKE Nguyenonocytes (Bld) [#/Vol]0.50 10*3/uLNormal 0.10-1.20Uc HealthSaint Cabrini HospitalComsouthwest regional rehabilitation center on above:Performed By: #### BMPX, CDP #### [facility] [address] [place] [address]. [place] [address] [employer]: DUKE Nguyenonocytes/100 WBC (Bld)10 %Normal3-12[facility] HospitalComsouthwest regional rehabilitation center on above:Performed By: #### BMPX, CDP #### [facility] [address] [place] [address] [employer]: Maya Nguyenutrophil (Seg)54 %Tfpaly72-27FvysbMercy Health Fairfield Hospital on above:Performed By: #### BMPX, CDP #### [facility] [address] [place] [address] [employer]: BOB NguyenBC Automated0.0 per 100 WBCNormal0.0[facility] on above:Performed By: #### BMPX, CDP #### [facility] [address] [place] [address] [employer]: Maria Luisa Nguyen mean volume (Bld) [Entitic vol]9.9 fL Normal8.1-13.5[facility] HospitalComsouthwest regional rehabilitation center on above:Performed By: #### BMPX, CDP #### [facility] [address] [place] [address] [employer]: Dacia Nguyen (Bld) [#/Vol]154 10*3/bUZqbwzl700-719 [facility] on above:Performed By: #### BMPX, CDP #### [facility] [address] [place] [address] [employer]: RONNIE Nguyen (Bld) [#/Vol]2.96 10*6/uLLow4.21-5.77[facility] John Medical CenterComment on above:Performed By: #### BMPX, CDP #### [facility] [address] [facility] [place] [address] [employer]: HOME NguyenBC (Bld) [#/Vol]5.1 10*3/uLNormal3.5-11.3[facility] John Medical CenterComment on above:Performed By: #### BMPX, CDP #### [facility] [address] [place] [address] [employer]: Rasheeda Nguyengnesiumon 77-56-1215Sdedbbpoj [Mass/Vol]1.3 mg/dLLow1.6-2.6[facility] John Medical CenterComment on above:Performed By: #### BMPX, CDP #### [facility] [address] [place] [address] [employer]: Sangeetha Nguyen Metab w/rfx MGon 61-26-7441Vhwdk gap [Moles/Vol]6 mmol/LLow9-17MerSaint Cabrini HospitalComment on above:Performed By: #### LACDS #### [facility] [address] [place] [address] [employer]: STUART Nguyen/CRE Tlulv8Oto4-24PpmldNationwide Children'S Hospital Comment on above:Performed By: #### LACDS #### [facility] [address] [place] [address] [employer]: PATTI Nguyenalcium [Mass/Vol]8.0 mg/dLLow8.6-10.4MerSaint Cabrini HospitalComment on above:Performed By: #### LACDS #### [facility] [address] [facility] [place] [address] [employer]: PATTI Nguyenhloride [Moles/Vol]114 mmol/VCsfg39-425OhdeoNationwide Children'S HospitalComsouthwest regional rehabilitation center on above:Performed By: #### LACDS #### [facility] [address] [facility] [place] [address] [employer]: PATTI NguyenO2 [Moles/Vol]23 mmol/RLbairy22-89YwjpxNationwide Children'S HospitalComsouthwest regional rehabilitation center on above:Performed By: #### LACDS #### [facility] [address] [facility] [place] [address] [employer]: PATTI Nguyenreatinine [Mass/Vol]0.8 mg/dLNormal0.7-1.2 [facility] HospitalComsouthwest regional rehabilitation center on above:Performed By: #### LACDS #### [facility] [facility] [place] [address] [employer]: Hadley Smith MDGFR/1.73 sq M.predicted among non-blacks MDRD (S/P/Bld) [Vol rate/Area]mL/min/{1.73_m2}Normal>60[facility] HospitalComsouthwest regional rehabilitation center on above:Result Comment: These results are not intended for [...] or following therapy that affects renal tubular secretion.Performed By: #### LACDS #### [facility] [address] [facility] [place] [address] [employer]: Hadley Smith MDGlucose [Mass/Vol]101 mg/aIKrgi82-60Fplwk [facility] John Medical CenterComment on above:Performed By: #### LACDS #### [facility] [address] [facility] [place] [address] [employer]: VONDA Nguyenotassium [Moles/Vol]3.7 mmol/LNormal3.7-5.3 [facility] HospitalComsouthwest regional rehabilitation center on above:Performed By: #### LACDS #### [facility] [address] [place] [address] [employer]: GIN Nguyenodium [Moles/Vol]143 mmol/TShbxph463-913BxnveNationwide Children'S HospitalComsouthwest regional rehabilitation center on above:Performed By: #### LACDEVAUGHN #### [facility] [place] [address] [employer]: Hadley Smith MDUrea nitrogen [Mass/Vol]5 mg/dLLow8-23[facility]'S HospitalComment on above:Performed By: #### LACDEVAUGHN #### [facility] [place] [address] [employer]: AALIYAH Nguyen with Diffon 61-95-7684Qcu. Basophil0.03 k/uLNormal0.00-0.20[facility] HospitalComsouthwest regional rehabilitation center on above:Performed By: #### LACDEVAUGHN #### [facility] [address] [place] [address] [employer]: Jaret Nguyen.Imm.Granulocyte0.01 k/uLNormal0.00-0.30 [facility] HospitalComsouthwest regional rehabilitation center on above:Performed By: #### LACDEVAUGHN #### [facility] [address] [place] [address] [employer]: Jaret Nguyen.Neutrophil (Seg)2.27 k/uLNormal1.50-8.10 [facility] HospitalComment on above:Performed By: #### LACDS #### [facility] [address] [place] [address] [employer]: Hadley Smith MDBasophils/100 WBC (Bld)1 %Normal0-2[facility] John Medical CenterComment on above:Performed By: #### LACDS #### [facility] [address] [place] [address] [employer]: MARISOL Nguyenosinophils (Bld) [#/Vol]0.19 10*3/uLNormal 0.00-0.44MerSaint Cabrini HospitalComsouthwest regional rehabilitation center on above:Performed By: #### LACDS #### [facility] [address] [place] [address] [employer]: MARISOL Nguyenosinophils/100 WBC (Bld)5 %High1-4[facility] John Medical CenterComment on above:Performed By: #### LACDS #### [facility] [place] [address] [employer]: Hadley Smiht MDErythrocyte distribution width (RBC) [Ratio] 12.6 %Pasoiz67.8-14.4[facility] Medical CenterComsouthwest regional rehabilitation center on above:Performed By: #### LACDS #### [facility] [place] [address] [employer]: Hadley Smith MDHematocrit (Bld) [Volume fraction]28.5 %Low 40.7-50.3[facility] Medical CenterComsouthwest regional rehabilitation center on above:Performed By: #### LACDS #### [facility] [address] [place] [address] [employer]: Hadley Smith MDHemoglobin (Bld) [Mass/Vol]9.3 g/dLLow13.0-17.0 [facility]S HospitalComment on above:Performed By: #### LACDS #### [facility] [address] [facility] [place] [address] [employer]: Leonela Nguyen granulocytes/100 WBC (Bld)0 %Normal0 [facility] HospitalComsouthwest regional rehabilitation center on above:Performed By: #### LACDS #### [facility] [address] [place] [address] [employer]: Luis Nguyenmphocytes (Bld) [#/Vol]1.36 10*3/uLNormal 1.10-3.70[facility]'S HospitalComment on above:Performed By: #### LACDEVAUGHN #### [facility] [address] [place] [address] [employer]: Luis Nguyenmphocytes/100 WBC (Bld)32 %Xhbazc13-63UvbiwNationwide Children'S HospitalComsouthwest regional rehabilitation center on above:Performed By: #### LACDEVAUGHN #### [facility] [address] [place] [address] [employer]: FRANCHESCA Nguyen (RBC) [Entitic mass]32.9 apYvazdu82.2-33.5 [facility] HospitalComsouthwest regional rehabilitation center on above:Performed By: #### LACDEVAUGHN #### [facility] [address] [place] [address] [employer]: FRANCHESCA NguyenC (RBC) [Mass/Vol]32.6 g/yPZlngno78.4-34.8 [facility] HospitalComment on above:Performed By: #### LACDEVAUGHN #### [facility] [address] [place] [address] [employer]: DUKE NguyenCV (RBC) [Entitic vol]100.7 kQMktjdk49.6-102.9 [facility] HospitalComsouthwest regional rehabilitation center on above:Performed By: #### LACDS #### [facility] [address] [facility] [place] [address] [employer]: DUKE Nguyenonocytes (Bld) [#/Vol]0.39 10*3/uLNormal 0.10-1.20MerSaint Cabrini HospitalComsouthwest regional rehabilitation center on above:Performed By: #### LACDS #### [facility] [address] [place] [address] [employer]: DUKE Nguyenonocytes/100 WBC (Bld)9 %Normal3-12MerSaint Cabrini HospitalComsouthwest regional rehabilitation center on above:Performed By: #### LACDS #### [facility] [address] [place] [address]. [place] [address] [employer]: Maya Nguyenutrophil (Seg)53 %Zkctvn12-37TczeePeaceHealth Peace Island Hospital on above:Performed By: #### LACDS #### [facility] [address] [place] [address] [employer]: Hadley Smith MDNRBC Automated0.0 per 100 WBCNormal0.0[facility] on above:Performed By: #### LACDS #### [facility] [address] [place] [address]. [place] [address] [employer]: VONDA Nguyenlatelet mean volume (Bld) [Entitic vol]9.9 fL Normal8.1-13.5[facility] HospitalComsouthwest regional rehabilitation center on above:Performed By: #### LACDS #### [facility] [address] [place] [address]. [place] [address] [employer]: Dacia Nguyen (Bld) [#/Vol]144 10*3/mSQfuzhk981-932 [facility] HospitalComment on above:Performed By: #### LACDS #### [facility] [address] [place] [address] [employer]: STEVE NguyenBC (Bld) [#/Vol]2.83 10*6/uLLow4.21-5.77[facility] John Medical CenterComment on above:Performed By: #### LACDS #### [facility] [address] [place], [place] [address]ia [facility] [place] [address] [employer]: CELINA Nguyen (Bld) [#/Vol]4.3 10*3/uLNormal3.5-11.3Msumma healthy [facility] John Medical CenterComment on above:Performed By: #### LACDS #### [facility] [address] [place] [address] [employer]: Hadley Smith MDB12/Folate Panelon 06-05-0817Vahmlllef (Vitamin B12) [Mass/Vol]506 pg/qULexlgn043-6494Drfon St. Anne HospitalComment on above: Performed By: #### BMPX, CDP #### [facility] [address] [facility] [place] [address] [employer]: Hadley Smith MDFolic Acid14.1 ng/mLNormal>4.8[facility] John Medical CenterComment on above:Performed By: #### BMPX, CDP #### [facility] [address] [place] [address] [employer]: Hadley Smith MDBasic Metab w/rfx MGon 90-90-8395Skozl gap [Moles/Vol]13 mmol/LNormal9-17[facility] HospitalComment on above:Performed By: #### LACDS #### [facility] [place] [address] [employer]: EDITH NguyenN/CRE Hohar35Aenuff2-46SplzgNationwide Children'S HospitalComment on above:Performed By: #### LACDS #### [facility] [address] [place] [address] [employer]: PATTI Nguyenalcium [Mass/Vol]7.9 mg/dLLow8.6-10.4[facility]S HospitalComment on above:Performed By: #### LACDS #### [facility] [address] [place] [address] [employer]: PATTI Nguyenhloride [Moles/Vol]108 mmol/ZTfzp40-834FhtevNationwide Children'S HospitalComment on above:Performed By: #### LACDS #### [facility] [address] [place] [address] [employer]: PATTI NguyenO2 [Moles/Vol]19 mmol/CKgq39-65SzkenNationwide Children'S HospitalComment on above:Performed By: #### LACDS #### [facility] [address] [place] [address] [employer]: PATTI Nguyenreatinine [Mass/Vol]0.7 mg/dLNormal0.7-1.2 [facility] HospitalComsouthwest regional rehabilitation center on above:Performed By: #### LACDS #### [facility] [address] [place] [address] [employer]: Hadley Smith MDGFR/1.73 sq M.predicted among non-blacks MDRD (S/P/Bld) [Vol rate/Area]mL/min/{1.73_m2}Normal>60MerSaint Cabrini HospitalComment on above:Result Comment: These results are not intended for [...] or following therapy that affects renal tubular secretion.Performed By: #### LACDS #### [facility] [address] [place] [address] [employer]: Hadley Smith MDGlucose [Mass/Vol]69 mg/aSFuq02-80Zmbcj [facility] CenterComment on above:Performed By: #### LACDS #### [facility] [address] [place] [address] [employer]: VONDA Nguyenotassium [Moles/Vol]3.8 mmol/LNormal3.7-5.3 [facility]Com[facility] on above:Performed By: #### LACDS #### [facility] [address] [place] [address] [employer]: GIN Nguyenodium [Moles/Vol]140 mmol/XCaqhvj308-532EyfblNationwide Children'S HospitalComsouthwest regional rehabilitation center on above:Performed By: #### LACDS #### [facility] [address] [place] [address] [employer]: Hadley Smith MDUrea nitrogen [Mass/Vol]11 mg/dLNormal8-23[facility]Com[facility] on above:Performed By: #### LACDS #### [facility] [address] [place] [address] [employer]: AALIYAH Nguyen with Diffon 28-83-7697Kpl. Basophil0.03 k/uLNormal0.00-0.20[facility] Medical CenterComment on above:Performed By: #### GISSEL #### [facility] [address] [place] [address] [employer]: Jaret Nguyen.Imm.Granulocyte0.01 k/uLNormal0.00-0.30 [facility] HospitalComment on above:Performed By: #### GISSEL #### [facility] [address] [place] [address] [employer]: Jaret Nguyen.Neutrophil (Seg)2.94 k/uLNormal1.50-8.10 [facility] HospitalComment on above:Performed By: #### GISSEL #### [facility] [address] [place] [address] [employer]: Hadley Smith MDBasophils/100 WBC (Bld)1 %Normal0-2[facility] John Medical CenterComment on above:Performed By: #### GISSEL #### [facility] [address] [place] [address] [employer]: MARISOL Nguyenosinophils (Bld) [#/Vol]0.17 10*3/uLNormal 0.00-0.44MerSaint Cabrini HospitalComment on above:Performed By: #### GISSEL #### [facility] [address] [place] [address] [employer]: MARISOL Nguyenosinophils/100 WBC (Bld)4 %Normal1-4MerSaint Cabrini HospitalComment on above:Performed By: #### GISSEL #### [facility] [address] [place] [address] [employer]: Hadley Smith MDErythrocyte distribution width (RBC) [Ratio] 12.5 %Dqcewv54.8-14.4[facility] HospitalComment on above:Performed By: #### LACDS #### [facility] [address] [place] [address] [employer]: Hadley Smith MDHematocrit (Bld) [Volume fraction]25.3 %Low 40.7-50.3Msumma healthy [facility] John Medical CenterComment on above:Performed By: #### LACDS #### [facility] [address] [place] [address] [employer]: Hadley Smith MDHemoglobin (Bld) [Mass/Vol]8.1 g/dLLow13.0-17.0 [facility]Com[facility] on above:Performed By: #### LACDS #### [facility] [address] [place] [address] [employer]: Hadley Smith MDImmature granulocytes/100 WBC (Bld)0 %Normal0 [facility]Com[facility] on above:Performed By: #### LACDS #### [facility] [address] [place] [address] [employer]: Hdaley Smith MDLymphocytes (Bld) [#/Vol]1.29 10*3/uLNormal 1.10-3.70[facility] HospitalComsouth[facility] on above:Performed By: #### LACDS #### [facility] [address] [place] [address] [employer]: Luis Nguyenmphocytes/100 WBC (Bld)27 %Bbnmtj65-51YjhpcNationwide Children'S HospitalComsouthwest regional rehabilitation center on above:Performed By: #### LACDS #### [facility] [address] [place] [address] [employer]: DUKE NguyenCH (RBC) [Entitic mass]33.2 ygSixrvt03.2-33.5 [facility] HospitalComment on above:Performed By: #### LACDS #### [facility] [place] [address] [employer]: DUKE NguyenCHC (RBC) [Mass/Vol]32.0 g/sIDujulz70.4-34.8 [facility] HospitalComment on above:Performed By: #### GISSEL #### [facility] [address] [place] [address] [employer]: DUKE NguyenCV (RBC) [Entitic vol]103.7 iSDslj08.6-102.9 [facility] HospitalComment on above:Performed By: #### LACDEVAUGHN #### [facility] [address] [place] [address] [employer]: DUKE Nguyenonocytes (Bld) [#/Vol]0.35 10*3/uLNormal 0.10-1.20[facility] HospitalComment on above:Performed By: #### LACDEVAUGHN #### [facility] [address] [place] [address] [employer]: DUKE Nguyenonocytes/100 WBC (Bld)7 %Normal3-12[facility] Medical CenterComment on above:Performed By: #### LACDEVAUGHN #### [facility] [address] [place] [address] [employer]: Hadley Smith MDNeutrophil (Seg)61 %Nirbfd71-20RgdaxSaint Cabrini HospitalComment on above:Performed By: #### GISSEL #### [facility] [address] [facility] [place] [address] [employer]: SOY Nguyen Automated0.0 per 100 WBCNormal0.0[facility] on above:Performed By: #### LACDS #### [facility] [place] [address] [employer]: Maria Luisa Nguyen mean volume (Bld) [Entitic vol]9.5 fL Normal8.1-13.5[facility] HospitalComsouthwest regional rehabilitation center on above:Performed By: #### LACDS #### [facility] [place] [address] [employer]: Dacia Nguyen (Bld) [#/Vol]110 10*3/nXDcw167-736 [facility] HospitalCom[facility] on above:Performed By: #### LACDEVAUGHN #### [facility] [place] [address] [employer]: STEVE NguyenBC (Bld) [#/Vol]2.44 10*6/uLLow4.21-5.77[facility] HospitalComsouth[facility] rehabilitation center on above:Performed By: #### LACDS #### [facility] [place] [address] [employer]: RONNIE Nguyen morphology finding Nom (Bld)MACROCYTOSIS PRESENTNormalNationwide Children'S HospitalComsouthwest regional rehabilitation center on above:Performed By: #### LACDS #### [facility] [address] [place] [address] [employer]: HOME NguyenBC (Bld) [#/Vol]4.8 10*3/uLNormal3.5-11.3[facility] John Medical CenterComment on above:Performed By: #### LACDS #### [facility] [address] [place] [address]. [place] [address] [employer]: Hadley Smith MDHgb/Hcton 38-49-9024Jzrjqsqook (Bld) [Volume fraction]26.0 %Low40.7-50.3[facility] John Medical CenterComment on above:Performed By: #### LACDS #### [facility] [address] [place] [address]. [place] [address] [employer]: Hadley Smith MDHemoglobin (Bld) [Mass/Vol]8.2 g/dLLow13.0-17.0 [facility] HospitalComment on above:Performed By: #### LACDS #### [facility] [address] [place] [address]. [place] [address] [employer]: AMAURI NguyenR ABDOMEN (KUB) (SINGLE AP VIEW)on 05-03-2023 XR ABDOMEN (KUB) (SINGLE AP VIEW)EXAMINATION: ONE SUPINE XRAY VIEW(S) OF THE ABDOMEN [...] Signed by: Toby Lofton MD 05/03/23 Final resultNormalMerSaint Cabrini HospitalBasic Metab w/rfx MGon 89-88-5136Azmnu gap [Moles/Vol]4 mmol/LLow9-17[facility]S HospitalComment on above:Performed By: #### BMPX, CDP #### [facility] [address] [facility] [place] [address] [employer]: STUART Nguyen/CRE Alalc81Ehzi6-85LqogtNationwide Children'S Hospital Comment on above:Performed By: #### BMPX, CDP #### [facility] [address] [place] [address]. [place] [address] [employer]: PATTI Nguyenalcium [Mass/Vol]7.9 mg/dLLow8.6-10.4[facility] HospitalComment on above:Performed By: #### BMPX, CDP #### [facility] [address] [place] [address]. [place] [address] [employer]: PATTI Nguyenhloride [Moles/Vol]117 mmol/PSwks83-528XfhmoNationwide Children'S HospitalComment on above:Performed By: #### BMPX, CDP #### [facility] [address] [place] [address]. [place] [address] [employer]: PATTI NguyenO2 [Moles/Vol]22 mmol/OHxkuuq27-68AjnjqNationwide Children'S HospitalComment on above:Performed By: #### BMPX, CDP #### [facility] [address] [place] [address]. [place] [address] [employer]: PATTI Nguyenreatinine [Mass/Vol]0.8 mg/dLNormal0.7-1.2 [facility] HospitalComment on above:Performed By: #### BMPX, CDP #### [facility] [address] [place] [address]. [place] [address] [employer]: Hadley Smith MDGFR/1.73 sq M.predicted among non-blacks MDRD (S/P/Bld) [Vol rate/Area]mL/min/{1.73_m2}Normal>60MerSaint Cabrini HospitalComment on above:Result Comment: These results are not intended for [...] or following therapy that affects renal tubular secretion.Performed By: #### BMPX, CDP #### [facility] [address] [facility] [place] [address] [employer]: Hadley Smith MDGlucose [Mass/Vol]87 mg/qOGwebrb21-86PowimForks Community HospitalComment on above:Performed By: #### BMPX, CDP #### [facility] [facility] [place] [address] [employer]: VONDA Nguyenotassium [Moles/Vol]3.7 mmol/LNormal3.7-5.3 [facility] HospitalComsouth[facility] rehabilitation [facility] on above:Performed By: #### BMPX, CDP #### [facility] [address] [facility] [place] [address] [employer]: GIN Nguyenodium [Moles/Vol]143 mmol/PIabpgs353-195XivbrNationwide Children'S HospitalComsouthwest regional rehabilitation center on above:Performed By: #### BMPX, CDP #### [facility] [address] [facility] [place] [address] [employer]: Hadley Smith MDUrea nitrogen [Mass/Vol]19 mg/dLNormal8-23[facility] HospitalComsouth[facility] rehabilitation center on above:Performed By: #### BMPX, CDP #### [facility] [address] [facility] [place] [address] [employer]: AALIYAH Nguyen with Diffon 92-76-2434Pes. Basophil0.03 k/uLNormal0.00-0.20[facility] HospitalComment on above:Performed By: #### BMPX, CDP #### [facility] [address] [place] [address] [employer]: Jaret Nguyen.Imm.Granulocyte0.01 k/uLNormal0.00-0.30 [facility] HospitalComment on above:Performed By: #### BMPX, CDP #### [facility] [address] [place] [address] [employer]: Jaret Nguyen.Neutrophil (Seg)2.85 k/uLNormal1.50-8.10 [facility] HospitalComment on above:Performed By: #### BMPX, CDP #### [facility] [address] [place] [address] [employer]: Hadley Smith MDBasophils/100 WBC (Bld)1 %Normal0-2[facility] John Medical CenterComment on above:Performed By: #### BMPX, CDP #### [facility] [address] [place] [address] [employer]: MARISOL Nguyenosinophils (Bld) [#/Vol]0.26 10*3/uLNormal 0.00-0.44MerSaint Cabrini HospitalComment on above:Performed By: #### BMPX, CDP #### [facility] [address] [place] [address] [employer]: MARISOL Nguyenosinophils/100 WBC (Bld)5 %High1-4MerSaint Cabrini HospitalComment on above:Performed By: #### BMPX, CDP #### [facility] [address] [facility] [place] [address] [employer]: Hadley Smith MDErythrocyte distribution width (RBC) [Ratio] 12.8 %Xwyuyl71.8-14.4[facility] HospitalComsouthwest regional rehabilitation center on above:Performed By: #### BMPX, CDP #### [facility] [address] [place] [address] [employer]: Hadley Smith MDHematocrit (Bld) [Volume fraction]26.2 %Low 40.7-50.3[facility] CenterComsouthwest regional rehabilitation center on above:Performed By: #### BMPX, CDP #### [facility] [address] [place] [address] [employer]: Hadley Smith MDHemoglobin (Bld) [Mass/Vol]8.1 g/dLLow13.0-17.0 [facility] HospitalCom[facility] on above:Performed By: #### BMPX, CDP #### [facility] [address] [place] [address] [employer]: Hadley Smith MDImmature granulocytes/100 WBC (Bld)0 %Normal0 [facility] HospitalComsouth[facility] on above:Performed By: #### BMPX, CDP #### [facility] [address] [place] [address] [employer]: Hadley Smith MDLymphocytes (Bld) [#/Vol]1.49 10*3/uLNormal 1.10-3.70[facility] HospitalComsouth[facility] rehabilitation center on above:Performed By: #### BMPX, CDP #### [facility] [address] [place] [address] [employer]: Luis Nguyenmphocytes/100 WBC (Bld)30 %Oylmmm34-14DinvwNationwide Children'S HospitalComment on above:Performed By: #### BMPX, CDP #### [facility] [place] [address] [employer]: DUKE NguyenCH (RBC) [Entitic mass]32.8 ldQpalte09.2-33.5 [facility] HospitalComsouth[facility] on above:Performed By: #### BMPX, CDP #### [facility] [address] [place] [address] [employer]: DUKE NguyenCHC (RBC) [Mass/Vol]30.9 g/aJInjgkg77.4-34.8 [facility]Com[facility] on above:Performed By: #### BMPX, CDP #### [facility] [address] [place] [address] [employer]: DUKE NguyenCV (RBC) [Entitic vol]106.1 vDZekg33.6-102.9 [facility] HospitalCom[facility] on above:Performed By: #### BMPX, CDP #### [facility] [address] [place] [address] [employer]: DUKE Nguyenonocytes (Bld) [#/Vol]0.37 10*3/uLNormal 0.10-1.20[facility] HospitalComsouth[facility] center on above:Performed By: #### BMPX, CDP #### [facility] [address] [place] [address] [employer]: DUKE Nguyenonocytes/100 WBC (Bld)7 %Normal3-12[facility] HospitalComsouth[facility] rehabilitation center on above:Performed By: #### BMPX, CDP #### [facility] [address] [place] [address] [employer]: Hadley Smith MDNeutrophil (Seg)57 %Dwohtq68-58QnvenNationwide Children'S HospitalComment on above:Performed By: #### BMPX, CDP #### [facility] [address] [place] [address] [employer]: Hadley Smith MDNRBC Automated0.0 per 100 WBCNormal0.0[facility] HospitalComsouthwest [facility] rehabilitation center on above:Performed By: #### BMPX, CDP #### [facility] [address] [place] [address] [employer]: Maria Luisa Nguyen mean volume (Bld) [Entitic vol]9.2 fL Normal8.1-13.5[facility]'S HospitalComment on above:Performed By: #### BMPX, CDP #### [facility] [address] [place] [address] [employer]: Dacia Nguyen (Bld) [#/Vol]134 10*3/rXXha389-521 [facility] HospitalComsouth[facility] center on above:Performed By: #### BMPX, CDP #### [facility] [address] [place] [address] [employer]: RONNIE Nguyen (Bld) [#/Vol]2.47 10*6/uLLow4.21-5.77[facility]S HospitalComment on above:Performed By: #### BMPX, CDP #### [facility] [address] [place] [address] [employer]: RONNIE Nguyen morphology finding Nom (Bld)MACROCYTOSIS PRESENTNormalNationwide Children'S HospitalComment on above:Performed By: #### BMPX, CDP #### [facility] [address] [place] [address] [place] [address] [employer]: Hadley Smith MDWBC (Bld) [#/Vol]5.0 10*3/uLNormal3.5-11.3[facility] Medical CenterComment on above:Performed By: #### BMPX, CDP #### [facility] [address] [place] [address] [employer]: Michele Nguyenb/Hcton 68-90-5799Jjuwkabjmm (Bld) [Volume fraction]26.5 %Low40.7-50.3[facility] John Medical CenterComment on above:Performed By: #### CDP, BMPX #### [facility] [place] [address] [employer]: Hadley Smith MDHemoglobin (Bld) [Mass/Vol]8.2 g/dLLow13.0-17.0 [facility] HospitalComment on above:Performed By: #### CDP, BMPX #### [facility] [place] [address] [employer]: RISHI Nguyen (Potassium)on 04-98-2653Yiuezxjov [Moles/Vol] 3.7 mmol/LNormal3.7-5.3[facility] John Medical CenterComment on above:Performed By: #### CDP, BMPX #### [facility] [address] [facility] [place] [address] [employer]: Rasheeda Nguyengnesiumon 32-43-9632Ekjroskez [Mass/Vol]1.5 mg/dLLow1.6-2.6[facility] John Medical CenterComment on above:Performed By: #### CDP, BMPX #### [facility] [facility] [place] [address] [employer]: Hadley Smith MDTroponinon 46-28-8410Gagrwxqq, High Sens12 ng/L Normal0-22[facility]S HospitalComment on above:Result Comment: High Sensitivity Troponin values cannot be compared with other Troponin methodologies.Performed By: #### CDP, BMPX #### [facility] [address] [place], [place] [address] [employer]: Hadley Smith MDXR ABDOMEN (KUB) (SINGLE AP VIEW)on 05-02-2023 XR ABDOMEN (KUB) (SINGLE AP VIEW)EXAMINATION: ONE SUPINE XRAY VIEW(S) OF THE ABDOMEN [...] Signed by: Irwin Spencer MD 05/02/23 Final resultNormalNationwide Children'S HospitalAPTTon 86-77-8181aAIE Coag (Bld) [Time] 27.3 oVgnrym66.9-33.8[facility]S HospitalComment on above:Result Comment: IV Heparin Therapy Range: 62.0-94.0Performed By: #### LACDS #### [facility] [place] [address] [employer]: Hadley Smith MDBasic Metab w/rfx MGon 18-44-6108Gnkff gap [Moles/Vol]7 mmol/LLow9-17[facility] HospitalComment on above:Performed By: #### LACDS #### [facility] [address] [place] [address] [employer]: Hadley Smith MDBUN/CRE Rbsfe13Dpfy3-01Ofoty [facility] Comment on above:Performed By: #### LACDS #### [facility] [address] [place] [address] [employer]: PATTI Nguyenalcium [Mass/Vol]8.3 mg/dLLow8.6-10.4[facility]S HospitalComment on above:Performed By: #### LACDEVAUGHN #### [facility] [address] [facility] [place] [address] [employer]: PATTI Nguyenhloride [Moles/Vol]112 mmol/FLoxx31-644MwzjqNationwide Children'S HospitalComment on above:Performed By: #### LACDEVAUGHN #### [facility] [address] [facility] [place] [address] [employer]: PATTI NguyenO2 [Moles/Vol]24 mmol/YSqowjm81-83EjdtsNationwide Children'S HospitalComment on above:Performed By: #### LACDEVAUGHN #### [facility] [address] [facility] [place] [address] [employer]: PATTI Nguyenreatinine [Mass/Vol]1.2 mg/dLNormal0.7-1.2 [facility] HospitalComment on above:Performed By: #### LACDEVAUGHN #### [facility] [address] [facility] [place] [address] [employer]: Hadley Smith MDGFR/1.73 sq M.predicted among non-blacks MDRD (S/P/Bld) [Vol rate/Area]mL/min/{1.73_m2}Normal>60[facility]S HospitalComment on above:Result Comment: These results are not intended for [...] or following therapy that affects renal tubular secretion.Performed By: #### LACDS #### [facility] [address] [place] [address] [employer]: Hadley Smith MDGlucose [Mass/Vol]102 mg/aBOith99-27Dmwhz [facility] Medical CenterComment on above:Performed By: #### LACDS #### [facility] [address] [place] [address] [employer]: VONDA Nguyenotassium [Moles/Vol]4.0 mmol/LNormal3.7-5.3 [facility] HospitalComment on above:Performed By: #### LACDS #### [facility] [address] [place] [address] [employer]: GIN Nguyenodium [Moles/Vol]143 mmol/JAmuuse463-139NhurvSaint Cabrini HospitalComment on above:Performed By: #### LACDEVAUGHN #### [facility] [address] [place] [address] [employer]: Hadley Smith MDUrea nitrogen [Mass/Vol]25 mg/dLHigh8-23MerSaint Cabrini HospitalComment on above:Performed By: #### LACDS #### [facility] [address] [place] [address] [employer]: AALIYAH Nguyen with Diffon 50-40-3221Bzc. Basophil0.03 k/uLNormal0.00-0.20MerSaint Cabrini HospitalComment on above:Performed By: #### LACDS #### [facility] [address] [place] [address] [employer]: Jaret Nguyen.Imm.Granulocyte0.02 k/uLNormal0.00-0.30 [facility] HospitalComment on above:Performed By: #### LACDS #### [facility] [place] [address] [employer]: Jaret Nguyen.Neutrophil (Seg)6.54 k/uLNormal1.50-8.10 [facility] HospitalComment on above:Performed By: #### LACDS #### [facility] [address] [place] [address] [employer]: Hadley Smith MDBasophils/100 WBC (Bld)0 %Normal0-2MForks Community HospitalComment on above:Performed By: #### LACDS #### [facility] [address] [place] [address] [employer]: MARISOL Nguyenosinophils (Bld) [#/Vol]0.36 10*3/uLNormal 0.00-0.44[facility] HospitalComment on above:Performed By: #### LACDS #### [facility] [address] [place] [address] [employer]: MARISOL Nguyenosinophils/100 WBC (Bld)4 %Normal1-4[facility] HospitalComment on above:Performed By: #### LACDS #### [facility] [address] [place] [address] [employer]: Hadley Smith MDErythrocyte distribution width (RBC) [Ratio] 13.2 %Fleesp43.8-14.4[facility] HospitalComment on above:Performed By: #### LACDS #### [facility] [address] [place] [address] [employer]: Hadley Smith MDHematocrit (Bld) [Volume fraction]32.9 %Low 40.7-50.3Msumma healthy [facility] John Medical CenterComment on above:Performed By: #### LACDS #### [facility] [address] [place] [address] [employer]: Hadley Smith MDHemoglobin (Bld) [Mass/Vol]10.3 g/dLLow 13.0-17.0[facility] HospitalComment on above:Performed By: #### LACDS #### [facility] [address] [place] [address] [employer]: Mahsa Nguyenmature granulocytes/100 WBC (Bld)0 %Normal0 [facility] HospitalComsouthwest [facility] rehabilitation center on above:Performed By: #### LACDS #### [facility] [address] [place] [address] [employer]: Hadley Smith MDLymphocytes (Bld) [#/Vol]1.73 10*3/uLNormal 1.10-3.70[facility] HospitalComsouthwest regional rehabilitation center on above:Performed By: #### LACDS #### [facility] [address] [place] [address] [employer]: Luis Nguyenmphocytes/100 WBC (Bld)19 %Ans25-64TavsyNationwide Children'S HospitalComsouthwest regional rehabilitation center on above:Performed By: #### LACDS #### [facility] [address] [place] [address] [employer]: DUKE NguyenCH (RBC) [Entitic mass]33.1 krHnqvpo39.2-33.5 [facility] HospitalComment on above:Performed By: #### LACDS #### [facility] [address] [place] [address] [employer]: DUKE NguyenCHC (RBC) [Mass/Vol]31.3 g/sCOkdsnd20.4-34.8 [facility] HospitalComment on above:Performed By: #### LACDS #### [facility] [address] [place] [address] [employer]: DUKE NguyenCV (RBC) [Entitic vol]105.8 vPMblj18.6-102.9 [facility] HospitalComment on above:Performed By: #### LACDS #### [facility] [address] [place] [address] [id number] [employer]: DUKE Nguyenonocytes (Bld) [#/Vol]0.57 10*3/uLNormal 0.10-1.20[facility] John Medical CenterComment on above:Performed By: #### LACDS #### [facility] [address] [place] [address] [employer]: DUKE Nguyenonocytes/100 WBC (Bld)6 %Normal3-12[facility] CenterComsouthwest regional rehabilitation center on above:Performed By: #### LACDS #### [facility] [address] [place] [address] [employer]: Maya Nguyenutrophil (Seg)71 %Ajro67-92Ssidh [facility] John Medical CenterComment on above:Performed By: #### LACDS #### [facility] [address] [place] [address] [employer]: BOB NguyenBC Automated0.0 per [address]BC[address] John Medical CenterComment on above:Performed By: #### LACDS #### [facility] [address] [place] [address] [employer]: Maria Luisa Nguyen mean volume (Bld) [Entitic vol]9.5 fL Normal8.1-13.5Nationwide Children'S HospitalComment on above:Performed By: #### LACDS #### [facility] [address] [facility] [place] [address] [employer]: Dacia Nguyen (Bld) [#/Vol]209 10*3/uHQbmjte546-070 [facility]'S HospitalComment on above:Performed By: #### LACDS #### [facility] [facility] [place] [address] [employer]: STEVE NguyenBC (Bld) [#/Vol]3.11 10*6/uLLow4.21-5.77N[facility] Children'S HospitalComment on above:Performed By: #### LACDS #### [facility]4 [facility] [place] [address] [employer]: RONNIE Nguyen morphology finding Nom (Bld)MACROCYTOSIS PRESENTNormalNationwide Children'S HospitalComment on above:Performed By: #### LACDS #### [facility]4 [facility] [place] [address] [employer]: HOME NguyenBC (Bld) [#/Vol]9.3 10*3/uLNormal3.5-11.3Msumma healthy [facility] John Medical CenterComment on above:Performed By: #### LACDS #### [facility] [facility] [place] [address] [employer]: Genaro Nguyen Metabolic Pr/rfx MGon [id number] [Mass/Vol]3.5 g/dLNormal3.5-5.2[facility] Medical CenterComsouthwest regional rehabilitation center on above:Performed By: #### CDP, BMPX #### [facility] [place] [address] [employer]: Linda Nguyen Ofza611 U/OGawaiq21-210VgskySaint Cabrini HospitalComsouthwest regional rehabilitation center on above:Performed By: #### CDP, BMPX #### [facility] [address] [place] [address] [employer]: Hadley Smith MDALT [Catalytic activity/Vol]22 U/LNormal5-41 [facility] HospitalComsouthwest regional rehabilitation center on above:Performed By: #### CDP, BMPX #### [facility] [address] [place] [address] [employer]: Tomer Nguyen gap [Moles/Vol]13 mmol/LNormal9-17MerSaint Cabrini HospitalComsouthwest regional rehabilitation center on above:Performed By: #### CDP, BMPX #### [facility] [address] [place] [address] [employer]: Hadley Smith MDAST [Catalytic activity/Vol]14 U/LNormal<40 [facility] HospitalComsouthwest regional rehabilitation center on above:Performed By: #### CDP, BMPX #### [facility] [address] [place] [address] [employer]: Hadley Smith MDBilirubin [Mass/Vol]0.3 mg/dLNormal0.3-1.2[facility] CenterComsouthwest regional rehabilitation center on above:Performed By: #### CDP, BMPX #### [facility] [address] [place] [address] [employer]: Hadley Smith MDBUN/CRE Oybit41Pestzr2-19[address] Anne HospitalComment on above:Performed By: #### CDP, BMPX #### [facility] [address] [facility] [place] [address] [employer]: PATTI Nguyenalcium [Mass/Vol]8.6 mg/dLNormal8.6-10.4N[facility]wide Children'S HospitalComment on above:Performed By: #### CDP, BMPX #### [facility] [address] [facility] [place] [address] [employer]: PATTI Nguyenhloride [Moles/Vol]107 mmol/ITqeasz91-175PsczuNationwide Children'S HospitalComsouthwest regional rehabilitation center on above:Performed By: #### CDP, BMPX #### [facility] [address] [facility] [place] [address] [employer]: PATTI NguyenO2 [Moles/Vol]24 mmol/LLhfwnu69-58DpktqNationwide Children'S HospitalComment on above:Performed By: #### CDP, BMPX #### [facility] [address] [facility] [place] [address] [employer]: PATTI Nguyenreatinine [Mass/Vol]1.3 mg/dLHigh0.7-1.2[facility] Medical CenterComsouthwest regional rehabilitation center on above:Performed By: #### CDP, BMPX #### [facility] [address] [facility] [place] [address] [employer]: Hadley Smith MDGFR/1.73 sq M.predicted among non-blacks MDRD (S/P/Bld) [Vol rate/Area]mL/min/{1.73_m2}Normal>60MerSaint Cabrini HospitalComment on above:Result Comment: These results are not intended for [...] or following therapy that affects renal tubular secretion.Performed By: #### CDP, BMPX #### [facility] [address] [place] [address] [employer]: Hadley Smith MDGlucose [Mass/Vol]108 mg/qJGqlc78-56Qzezi [facility] John Medical CenterComment on above:Performed By: #### CDP, BMPX #### [facility] [address] [place] [address] [employer]: VONDA Nguyenotassium [Moles/Vol]3.6 mmol/LLow3.7-5.3[facility] John Medical CenterComment on above:Performed By: #### CDP, BMPX #### [facility] [address] [place] [address] [employer]: Hadley Smith MDProtein [Mass/Vol]6.4 g/dLNormal6.4-8.3[facility] John Medical CenterComment on above:Performed By: #### CDP, BMPX #### [facility] [address] [place] [address] [employer]: GIN Nguyenodium [Moles/Vol]144 mmol/QQgtyue039-489LysysSaint Cabrini HospitalComment on above:Performed By: #### CDP, BMPX #### [facility] [address] [place] [address] [employer]: Hadley Smith MDUrea nitrogen [Mass/Vol]26 mg/dLHigh8-23[facility] John Medical CenterComment on above:Performed By: #### CDP, BMPX #### [facility] [address] [place] [address] [employer]: James Nguyen/Hcton 76-41-7943Mwwefuszjw (Bld) [Volume fraction]28.0 %Low40.7-50.3[facility] John Medical CenterComment on above:Performed By: #### BMPX, CDP #### [facility] [address] [place] [address] [employer]: Hadley Smith MDHemoglobin (Bld) [Mass/Vol]8.8 g/dLLow13.0-17.0 [facility] Children'S HospitalComment on above:Performed By: #### BMPX, CDP #### [facility] [address] [place], [place] [address] [address] [employer]: Hadley Smith MDHematocrit (Bld) [Volume fraction]29.9 %Low 40.7-50.3[facility] John Medical CenterComment on above:Performed By: #### HH #### [facility] [address] [place], [place] [address] [address] [employer]: Hadley Smith MDHemoglobin (Bld) [Mass/Vol]9.3 g/dLLow13.0-17.0 [facility] Children'S HospitalComment on above:Performed By: #### HH #### [facility] [address] [place], [place] [address]ia [facility] [place] [address] [employer]: Hadley Simth MDHematocrit (Bld) [Volume fraction]33.2 %Low 40.7-50.3[facility] [address] John Medical CenterComment on above:Performed By: #### BMPX, CDP #### [facility] [address] [place], [place] [address] [place] [address] [employer]: Hadley Smith MDHemoglobin (Bld) [Mass/Vol]10.3 g/dLLow 13.0-17.0Uc HealthSaint Cabrini HospitalComsouthwest regional rehabilitation center on above:Performed By: #### BMPX, CDP #### [facility] [address] [place] [address]. [place] [address] [employer]: Sonal Nguyen Binding Cap.on 05-01-2023% Fe Ivqbnlakjt47 %Kmbvzu01-92LxzzcSaint Cabrini HospitalComsouthwest regional rehabilitation center on above:Performed By: #### CDP, BMPX #### [facility] [address] [place] [address] [employer]: Sonal Nguyen [Mass/Vol]43 ug/yKEol70-347DmaaeNationwide Children'S HospitalComsouthwest regional rehabilitation center on above:Performed By: #### CDP, BMPX #### [facility] [address] [place] [address] [employer]: Bin Nguyental Fe Binding Per089 ug/xSZkr246-549QivfiSaint Cabrini HospitalComsouthwest regional rehabilitation center on above:Performed By: #### CDP, BMPX #### [facility] [address] [place] [address] [employer]: Hadley Smith MDUnbound Fe Bind Cap90 ug/rREiz768-348ZddgsSaint Cabrini HospitalComsouthwest regional rehabilitation center on above:Performed By: #### MIESHA, BMPX #### [facility] [address] [place] [address] [employer]: Samir Nguyen, Sepsison 05-76-4426Gbewex Acid, Sepsis 0.7 mmol/LNormal0.5-1.9[facility]S HospitalComsouthwest regional rehabilitation center on above:Performed By: #### LACDS #### [facility] [address] [place] [address]. [place] [address] [employer]: Yudi Nguyenctic Acid, Sepsis1.2 mmol/LNormal0.5-1.9N[facility] Children'S HospitalComment on above:Performed By: #### CDP, BMPX #### [facility] [address] [facility] [place] [address] [employer]: Rasheeda Nguyengnesiumon 25-60-1082Qnzmfpfvp [Mass/Vol]2.2 mg/dLNormal1.6-2.6[facility] John Medical CenterComment on above:Performed By: #### CDP, BMPX #### [facility] [address] [facility] [place] [address] [employer]: Serafin Nguyenimemarek Rejectionon [id number] for rejectionUnable to perform testing: Specimen quantity not sufficient.NormalNationwide Children'S HospitalComment on above:Performed By: #### CDP, BMPX #### [facility]4 [facility] [place] [address] [employer]: Jermain Nguyen of sample.BLOODGood Samaritan HospitalComment on above:Performed By: #### CDP, BMPX #### [facility]4 [facility] [place] [address] [employer]: Jonny Nguyen orderedPTTNoMain Campus Medical Center Comment on above:Performed By: #### CDP, BMPX #### [facility]4 [facility] [place] [address] [employer]: GARCÍA Nguyen ABDOMEN (2 VIEWS)on [id number] ABDOMEN (2 VIEWS)EXAMINATION: TWO XRAY VIEWS OF THE ABDOMEN 05/01/2023 [...] Signed by: Devaughn Merino MD 05/01/23 Final resultNormalMerSaint Cabrini HospitalXR ABDOMEN FOR NG/OG/NE TUBE PLACEMENT on 23-86-9490FB ABDOMEN FOR NG/OG/NE TUBE PLACEMENTEXAMINATION: ONE SUPINE XRAY VIEW(S) OF THE ABDOMEN [...] Signed by: Miles Barnett MD 05/01/23 Final resultNormalMerSaint Cabrini HospitalXR ABDOMEN FOR NG/OG/NE TUBE PLACEMENT EXAMINATION: ONE [...] Signed by: Melchor Mota MD 05/01/23 Final resultNormalMerSaint Cabrini HospitalBasic Metab w/rfx MGon 46-12-6169Zwogf gap [Moles/Vol]10 mmol/LNormal9-17N[facility] Children'S HospitalComment on above: Performed By: #### CDP, BMPX #### [facility] [address] [place] [address] [employer]: STUART Nguyen/CRE Kuwkk17Mzgy0-14SaxvfNationwide Children'S Hospital Comment on above:Performed By: #### CDP, BMPX #### [facility] [address] [place] [address] [employer]: PATTI Nguyenalcium [Mass/Vol]9.2 mg/dLNormal8.6-10.4N[facility] Children'S HospitalComment on above:Performed By: #### CDP, BMPX #### [facility] [address] [place] [address] [employer]: PATTI Nguyenhloride [Moles/Vol]110 mmol/GYxrg58-155CicpaSaint Cabrini HospitalComment on above:Performed By: #### CDP, BMPX #### [facility] [address] [place] [address] [employer]: PATTI NguyenO2 [Moles/Vol]27 mmol/MTycjtr19-28DvcqzNationwide Children'S HospitalComment on above:Performed By: #### CDP, BMPX #### [facility] [address] [place] [address] [employer]: PATTI Nguyenreatinine [Mass/Vol]0.7 mg/dLNormal0.7-1.2 [facility]'S HospitalComment on above:Performed By: #### CDP, BMPX #### [facility] [address] [place] [address] [employer]: Hadley Smith MDGFR/1.73 sq M.predicted among non-blacks MDRD (S/P/Bld) [Vol rate/Area]mL/min/{1.73_m2}Normal>60N[facility] Children'S HospitalComment on above:Result Comment: These results are not intended for [...] or following therapy that affects renal tubular secretion.Performed By: #### CDP, BMPX #### [facility] [address] [place] [address] [employer]: Hadley Smith MDGlucose [Mass/Vol]95 mg/eBKwnbdh92-83Ccpxg [facility] Medical CenterComment on above:Performed By: #### CDP, BMPX #### [facility] [address] [place] [address] [employer]: VONDA Nguyenotassium [Moles/Vol]3.9 mmol/LNormal3.7-5.3 [facility]'S HospitalComment on above:Performed By: #### CDP, BMPX #### [facility] [address] [place] [address] [employer]: GIN Nguyenodium [Moles/Vol]147 mmol/UWpse404-255VjkleNationwide Children'S HospitalComment on above:Performed By: #### CDP, BMPX #### [facility] [address] [facility] [place] [address] [employer]: Hadley Smith MDUrea nitrogen [Mass/Vol]22 mg/dLNormal8-23[facility] John Medical CenterComment on above:Performed By: #### CDP, BMPX #### [facility] [address] [facility] [place] [address] [employer]: Hadley Smith MDBasi Metabolic Panel w/ Reflex to MGon [id number] gap [Moles/Vol]10 mmol/L9 - 17 mmol/LBON [facility]SUR[facility] HEALTH Calcium [Mass/Vol]9.2 mg/dL8.6 - 10.4 mg/dLBON SECZIA [facility] [employer] HEALTHChloride [Moles/Vol]110 mmol/LHigh98 - 107 mmol/LBON SECSUR[facility]ICAL SPECIALTY CENTER HEALTHCO2 [Moles/Vol] 27 mmol/L20 - 31 mmol/[facility] [employer] Carbon BlackCreatinine [Mass/Vol]0.7 mg/dL0.7 - 1.2 mg/dLBON SECHipLogicGFR/1.73 sq M.predicted MDRD (S/P/Bld) [Vol rate/Area]- PINFBON SELECT MEDICAL SPECIALTY HOSPITAL - TRUMBULLComment on above: These results are not intended [...] therapy that affects renal tubular secretion. Glucose [Mass/Vol]95 mg/dL70 - 99 mg/dLBON PLACENTIA-LINDA HOSPITALNeRRe TherapeuticsInterpretation and review of laboratory resultsAbnormalBON SECOURS AdlogixY HEALTHPotassium [Moles/Vol]3.9 mmol/L3.7 - 5.3 mmol/LBON SECIndiaHomes HEALTHSodium [Moles/Vol] 147 mmol/GSluh719 - 144 mmol/LBON SECSNOQUALMIE VALLEY HOSPITALGotuit HEALTHUrea nitrogen [Mass/Vol]22 mg/dL8 - 23 mg/dLBON SECZIA HEALTH CLINIC [facility] HEALTHUrea nitrogen/Creatinine [Mass ratio] 31 mg/mgHigh9 - 20BON SECOURS [facility] HOSPITALY HEALTHBON SECOURS [facility] MEDICAL CENTERCBC with Auto Differentialon [id number] (Bld) [#/Vol]0.04 10*3/uLBON SECOURS [facility] HEALTHBasophils/100 WBC (Bld)1 %0 - 2 %[facility] HOSPITALY HEALTHEosinophils (Bld) [#/Vol]0.25 10*3/uLBON SECOURS CLEVEL[facility] CLINIC MENTOR HOSPITALY HEALTHEosinophils/100 WBC (Bld)4 %1 - 4 % [facility] HOSPITALY HEALTHErythrocyte distribution width (RBC) [Ratio]12.9 %11.8 - 14.4 %[facility]AL MEDICAL CENTERHematocrit (Bld) [Volume fraction]32.2 %Low40.7 - 50.3 %[facility] SECSUR[facility]ICAL SPECIALTY CENTER HEALTHHemoglobin (Bld) [Mass/Vol]10.7 g/dLLow13.0 - 17.0 g/dLBON SECOHIOHEALTH PICKERINGTON METHODIST HOSPITALImmature granulocytes (Bld) [#/Vol]0.01 10*3/uLBON SECOURS [facility] MEDICAL CENTERImmature granulocytes/100 WBC (Bld)0 %0B[facility] HEALTHInterpretation and review of laboratory resultsAbnormalBON SECOHIOHEALTH PICKERINGTON METHODIST HOSPITALLymphocytes/100 WBC (Bld)26 %24 - 43 %[facility] HEALTH Lymphocytes/100 WBC (Bld)1.60 %BON SECSOUTHERN OHIO MEDICAL CENTERH (RBC) [Entitic mass] 33.0 pg25.2 - 33.5 pgBON SECSOUTHERN OHIO MEDICAL CENTERHC (RBC) [Mass/Vol]33.2 g/dL28.4 - 34.8 g/dLBON SECOURS UPPER VALLEY MEDICAL CENTERV (RBC) [Entitic vol]99.4 fL82.6 - 102.9 fL [facility] HOSPITALY HEALTHMonocytes/100 WBC (Bld)7 %3 - 12 %[facility] HOSPITALY HEALTHMonocytes/100 WBC (Bld)0.46 %[facility] HOSPITALY HEALTHNeutrophils/100 WBC (Bld)62 %36 - 65 %[facility] HOSPITALY HEALTHNucleated RBC/100 WBC (Bld) [Ratio]0.0 %0.0 per 100 WBCCJW MEDICAL CENTERPlatelet mean volume (Bld) [Entitic vol]9.0 fL8.1 - 13.5 fLINOVA ALEXANDRIA HOSPITAL HEALTHPlatelets (Bld) [#/Vol]283 10*3/uLBON [facility] MEDICAL SPECIALTY HOSPITAL - TRUMBULLRBC (Bld) [#/Vol]3.24 10*6/uLLow4.21 - 5.77 m/uL CJW MEDICAL CENTERSegmented neutrophils/100 WBC (Bld)3.85 %CJW MEDICAL CENTERWBC other (Bld) [#/Vol]6.2BON SECCUMBERLAND MEMORIAL HOSPITALCBC with Diffon [id number]. Basophil0.04 k/uLNormal0.00-0.20[facility]'S HospitalComment on above:Performed By: #### CDP, BMPX #### [facility] [address] [place] [address] [employer]: Jaret Nguyen.Imm.Granulocyte0.01 k/uLNormal0.00-0.30 [facility]S HospitalComment on above:Performed By: #### CDP, BMPX #### [facility] [address] [place] [address] [employer]: Jaret Nguyen.Neutrophil (Seg)3.85 k/uLNormal1.50-8.10 [facility]S HospitalComment on above:Performed By: #### CDP, BMPX #### [facility] [address] [place] [address] [employer]: Hadley Smith MDBasophils/100 WBC (Bld)1 %Normal0-2MForks Community HospitalComment on above:Performed By: #### CDP, BMPX #### [facility] [address] [place] [address] [employer]: MARISOL Nguyenosinophils (Bld) [#/Vol]0.25 10*3/uLNormal 0.00-0.44[facility]S HospitalComsouthwest regional rehabilitation center on above:Performed By: #### CDP, BMPX #### [facility] [address] [place] [address] [employer]: MARISOL Nguyenosinophils/100 WBC (Bld)4 %Normal1-4[facility]'S HospitalComment on above:Performed By: #### CDP, BMPX #### [facility] [address] [place] [address] [employer]: Hadley Smith MDErythrocyte distribution width (RBC) [Ratio] 12.9 %Apfocu35.8-14.4[facility]'S HospitalComment on above:Performed By: #### CDP, BMPX #### [facility] [address] [place] [address] [employer]: Hadley Smith MDHematocrit (Bld) [Volume fraction]32.2 %Low 40.7-50.3[facility] John Medical CenterComment on above:Performed By: #### CDP, BMPX #### [facility] [address] [place] [address] [employer]: Hadley Smith MDHemoglobin (Bld) [Mass/Vol]10.7 g/dLLow 13.0-17.0[facility]'S HospitalComment on above:Performed By: #### CDP, BMPX #### [facility] [address] [place] [address] [employer]: Hadley Smith MDImmature granulocytes/100 WBC (Bld)0 %Normal0 [facility] HospitalComsouthwest regional rehabilitation center on above:Performed By: #### CDP, BMPX #### [facility] [address] [facility] [place] [address] [employer]: Silas Nguyenhocytalejandra (Bld) [#/Vol]1.60 10*3/uLNormal 1.10-3.70[facility]S HospitalComment on above:Performed By: #### CDP, BMPX #### [facility] [address] [place] [address]. [place] [address] [employer]: Silas Nguyenhocytes/100 WBC (Bld)26 %Jhuegv36-10KtvttNationwide Children'S HospitalComsouthwest regional rehabilitation center on above:Performed By: #### CDP, BMPX #### [facility] [address] [place] [address]. [place] [address] [employer]: DUKE NguyenCH (RBC) [Entitic mass]33.0 qeXibqzh38.2-33.5 [facility]S HospitalComment on above:Performed By: #### CDP, BMPX #### [facility] [address] [place] [address]. [place] [address] [employer]: DUKE NguyenCHC (RBC) [Mass/Vol]33.2 g/nDXtkfis21.4-34.8 [facility] HospitalComment on above:Performed By: #### CDP, BMPX #### [facility] [address] [place] [address]. [place] [address] [employer]: DUKE NguyenCV (RBC) [Entitic vol]99.4 wORjshhx01.6-102.9 [facility] HospitalComment on above:Performed By: #### CDP, BMPX #### [facility] [address] [place] [address]. [place] [address] [employer]: DUKE Nguyenonocytes (Bld) [#/Vol]0.46 10*3/uLNormal 0.10-1.20[facility] HospitalComsouthwest regional rehabilitation center on above:Performed By: #### CDP, BMPX #### [facility] [address] [facility] [place] [address] [employer]: DUKE Nguyenonocytes/100 WBC (Bld)7 %Normal3-12MerSaint Cabrini HospitalComsouthwest regional rehabilitation center on above:Performed By: #### CDP, BMPX #### [facility] [address] [place] [address] [employer]: Chris Nguyenophil (Seg)62 %Fvjyse48-51VcebbNationwide Children'S HospitalComsouthwest regional rehabilitation center on above:Performed By: #### CDP, BMPX #### [facility] [address] [place] [address] [employer]: Hadley Smith MDNRBC Automated0.0 per 100 WBCNormal0.0[facility] on above:Performed By: #### CDP, BMPX #### [facility] [address] [place] [address] [employer]: Maria Luisa Nguyen mean volume (Bld) [Entitic vol]9.0 fL Normal8.1-13.5[facility]S HospitalComsouthwest regional rehabilitation center on above:Performed By: #### CDP, BMPX #### [facility] [place] [address] [employer]: Dacia Nguyen (Bld) [#/Vol]283 10*3/uWEitjym644-045 [facility] HospitalComsouthwest regional rehabilitation center on above:Performed By: #### CDP, BMPX #### [facility] [address] [place] [address] [employer]: RONNIE Nguyen (Bld) [#/Vol]3.24 10*6/uLLow4.21-5.77MerSaint Cabrini HospitalComment on above:Performed By: #### CDP, BMPX #### [facility] [place] [address] [employer]: CELINA Nguyen (Bldayton) [#/Vol]6.2 10*3/uLNormal3.5-11.3[facility] Medical CenterComment on above:Performed By: #### CDP, BMPX #### [facility] [address] [place] [address] [employer]: Snageetha Nguyen Metab w/rfx MGon 95-33-8993Riybo gap [Moles/Vol]18 mmol/LHigh9-17MerSaint Cabrini HospitalComment on above:Performed By: #### CDP, BMPX #### [facility] [address] [place] [address]. [place] [address] [employer]: STUART Nguyen/CRE Bhjlb82Kijg0-07ToeufNationwide Children'S Hospital Comment on above:Performed By: #### CDP, BMPX #### [facility] [address] [place] [address]. [place] [address] [employer]: Hadley Smith MDCalcium [Mass/Vol]9.2 mg/dLNormal8.6-10.4MerSaint Cabrini HospitalComment on above:Performed By: #### CDP, BMPX #### [facility] [address] [place] [address]. [place] [address] [employer]: Hadley Smith MDChloride [Moles/Vol]106 mmol/TReijyw10-747UgdemSaint Cabrini HospitalComment on above:Performed By: #### CDP, BMPX #### [facility] [address] [place] [address] [employer]: PATTI NguyenO2 [Moles/Vol]24 mmol/WQdgwgu67-28WkwdlNationwide Children'S HospitalComsouthwest regional rehabilitation center on above:Performed By: #### CDP, BMPX #### [facility] [address] [facility]. [place] [id number] [employer]: PATTI Nguyenreatinine [Mass/Vol]0.7 mg/dLNormal0.7-1.2 [facility] HospitalCom[facility] on above:Performed By: #### CDP, BMPX #### [facility] [facility] [place] [address] [employer]: Hadley Smith MDGFR/1.73 sq M.predicted among non-blacks MDRD (S/P/Bld) [Vol rate/Area]mL/min/{1.73_m2}Normal>60[facility] HospitalComsouth[facility] rehabilitation [facility] on above:Result Comment: These results are not intended for [...] or following therapy that affects renal tubular secretion.Performed By: #### CDP, BMPX #### [facility] [address] [facility] [place] [address] [employer]: Hadley Smith MDGlucose [Mass/Vol]69 mg/cSBij14-78OjmvuForks Community HospitalComsouthwest regional rehabilitation center on above:Performed By: #### CDP, BMPX #### [facility] [address] [facility] [place] [address] [employer]: Hadley Sarah, MDPotassium [Moles/Vol]3.9 mmol/LNormal3.7-5.3 [facility] HospitalComment on above:Performed By: #### CDP, BMPX #### [facility] [address] [facility] [place] [address] [employer]: GIN Nguyenodium [Moles/Vol]148 mmol/OBujk055-475WtbdmNationwide Children'S HospitalComment on above:Performed By: #### CDP, BMPX #### [facility] [address] [facility] [place] [address] [employer]: Hadley Smith MDUrea nitrogen [Mass/Vol]21 mg/dLNormal8-23[facility]S HospitalComment on above:Performed By: #### CDP, BMPX #### [facility] [address] [facility] [place] [address] [employer]: Hadley Smith MDNatchaug Hospital Metabolic Panel w/ Reflex to MGon [id number] gap [Moles/Vol]18 mmol/LHigh9 - 17 mmol/LBON [facility] TRUMBULLCalcium [Mass/Vol]9.2 mg/dL8.6 - 10.4 mg/dLBON [facility] Chloride [Moles/Vol]106 mmol/L98 - 107 mmol/LBON [facility] TRUMBULLCO2 [Moles/Vol]24 mmol/L20 - 31 mmol/LBON [facility] TRUMBULLCreatinine [Mass/Vol] 0.7 mg/dL0.7 - 1.2 mg/dLBON [facility] TRUMBULLGFR/1.73 sq M.predicted MDRD (S/P/Bld) [Vol rate/Area]- PINFBON [facility]OS[facility] - TRUMBULLComment on above: These results are not intended [...] therapy that affects renal tubular secretion. Glucose [Mass/Vol]69 mg/dLLow70 - 99 mg/dLBON SECSNOQUALMIE VALLEY HOSPITALY HEALTHInterpretation and review of laboratory resultsAbnormalBON SECOURS MERCY HEALTHPotassium [Moles/Vol]3.9 mmol/L3.7 - 5.3 mmol/LBON [facility] HEALTHSodium [Moles/Vol] 148 mmol/GVxzq645 - 144 mmol/LBON SECOU[facility]ITALY HEALTHUrea nitrogen [Mass/Vol]21 mg/dL8 - 23 mg/dLBON SECOURS MERCY HEALTHUrea nitrogen/Creatinine [Mass ratio] 30 mg/mgHigh9 - 20B[facility]ITALY HEALTHBON [facility]ITALY HEALTHCBC with Auto Differentialon [id number] (Bld) [#/Vol]0.06 10*3/uLBON SECOURS [facility]OSPITALY HEALTHBasophils/100 WBC (Bld)1 %0 - 2 %[facility] HEALTHEosinophils (Bld) [#/Vol]0.11 10*3/uLBON SECOURS MERCY HEALTHEosinophils/100 WBC (Bld)1 %1 - 4 % [facility] MERCY HEALTHErythrocyte distribution width (RBC) [Ratio]12.8 %11.8 - 14.4 %[facility]OS[facility]ITALY HEALTHHematocrit (Bld) [Volume fraction]34.4 %Low40.7 - 50.3 %[facility] SECSNOQUALMIE VALLEY HOSPITALY HEALTHHemoglobin (Bld) [Mass/Vol]11.0 g/dLLow13.0 - 17.0 g/dLBON SECOURS CLEVEL[facility] CLIN[facility] MENT[facility] HOSPITALY [facility] TRUMBULLImmature granulocytes (Bld) [#/Vol]0.01 10*3/uLBON SECOURS MER[facility] TRUMBULLImmature granulocytes/100 WBC (Bld)0 %0B[facility]OS[facility]ITALY HEALTHInterpretation and review of laboratory resultsAbnormalBON SECOURS [facility]OS[facility]ITALY HEALTHLymphocytes/100 WBC (Bld)20 %Low24 - 43 %[facility]ALTH Lymphocytes/100 WBC (Bld)1.55 %[facility] HOSPITALY [facility]OS[facility] - TRUMBULLMCH (RBC) [Entitic mass] 32.8 pg25.2 - 33.5 pgBON SECOURS CLEVELAND CLINIC MENTOR HOSPITALY HEALTHMCHC (RBC) [Mass/Vol]32.0 g/dL28.4 - 34.8 g/dLBON MERCY HEALTH FAIRFIELD HOSPITALV (RBC) [Entitic vol]102.7 fL82.6 - 102.9 fLCJW MEDICAL CENTERMonocytes/100 WBC (Bld)6 %3 - 12 %BON [facility] TRUMBULLMonocytes/100 WBC (Bld)0.49 %CJW MEDICAL CENTERNeutrophils/100 WBC (Bld)72 %High36 - 65 %BON [facility] TRUMBULLNucleated RBC/100 WBC (Bld) [Ratio]0.0 %0.0 per 100 WBCBON [facility]OS[facility] - TRUMBULLPlatelet mean volume (Bld) [Entitic vol]8.8 fL8.1 - 13.5 fLCJW MEDICAL CENTERPlatelets (Bld) [#/Vol] 242 10*3/uLBON [facility]OS[facility] - TRUMBULLRBC (Bld) [#/Vol]3.35 10*6/uLLow4.21 - 5.77 m/uLBON [facility] TRUMBULLSegmented neutrophils/100 WBC (Bld)5.65 %BON [facility]OS[facility] - TRUMBULLWBC other (Bld) [#/Vol]7.9BON [facility] AND NURSING HOMECBC with Diffon [id number]. Basophil0.06 k/uLNormal0.00-0.20[facility]S HospitalComment on above:Performed By: #### ANGELA, CDP #### [facility] [address] [place] [address] [employer]: Jaret Nguyen.Imm.Granulocyte0.01 k/uLNormal0.00-0.30 [facility] HospitalComment on above:Performed By: #### BMPX, CDP #### [facility] [address] [place] [address] [employer]: Jaret Nguyen.Neutrophil (Seg)5.65 k/uLNormal1.50-8.10 [facility] HospitalComment on above:Performed By: #### BMPX, CDP #### [facility] [address] [place] [address] [employer]: Hadley Smith MDBasophils/100 WBC (Bld)1 %Normal0-2[facility] John Medical CenterComment on above:Performed By: #### BMPX, CDP #### [facility] [address] [place] [address] [employer]: MARISOL Nguyenosinophils (Bld) [#/Vol]0.11 10*3/uLNormal 0.00-0.44[facility] HospitalComsouthwest regional rehabilitation center on above:Performed By: #### BMPX, CDP #### [facility] [address] [place] [address] [employer]: MARISOL Nguyenosinophils/100 WBC (Bld)1 %Normal1-4[facility]S HospitalComment on above:Performed By: #### BMPX, CDP #### [facility] [address] [place] [address] [employer]: Hadley Smith MDErythrocyte distribution width (RBC) [Ratio] 12.8 %Pkpsje12.8-14.4[facility] HospitalComsouthwest regional rehabilitation center on above:Performed By: #### BMPX, CDP #### [facility] [address] [place] [address] [employer]: Hadley Smith MDHematocrit (Bld) [Volume fraction]34.4 %Low 40.7-50.3[facility] John Medical CenterComment on above:Performed By: #### BMPX, CDP #### [facility] [address] [place] [address] [employer]: Hadley Smith MDHemoglobin (Bld) [Mass/Vol]11.0 g/dLLow 13.0-17.0[facility] HospitalComsouthwest regional rehabilitation center on above:Performed By: #### BMPX, CDP #### [facility] [address] [place] [address] [employer]: Malou Nguyenture granulocytes/100 WBC (Bld)0 %Normal0 [facility] HospitalComsouth[facility] rehabilitation [facility] on above:Performed By: #### BMPX, CDP #### [facility] [address] [place] [address] [employer]: Luis Nguyenmphocytes (Bld) [#/Vol]1.55 10*3/uLNormal 1.10-3.70[facility] HospitalComsouthwest regional rehabilitation center on above:Performed By: #### BMPX, CDP #### [facility] [address] [place] [address] [employer]: Silas Nguyenhocytes/100 WBC (Bld)20 %Mtv99-74HsbtuNationwide Children'S HospitalComsouthwest regional rehabilitation center on above:Performed By: #### BMPX, CDP #### [facility] [address] [place] [address] [employer]: FRANCHESCA Nguyen (RBC) [Entitic mass]32.8 ouOaimqy24.2-33.5 [facility] HospitalComsouth[facility] regional rehabilitation center on above:Performed By: #### BMPX, CDP #### [facility] [address] [place] [address] [employer]: FRANCHESCA NguyenC (RBC) [Mass/Vol]32.0 g/mFVzdezx29.4-34.8 [facility] HospitalComment on above:Performed By: #### BMPX, CDP #### [facility] [address] [place] [address] [employer]: DUKE NguyenCV (RBC) [Entitic vol]102.7 uVNreewe64.6-102.9 [facility] on above:Performed By: #### BMPX, CDP #### [facility] [address] [place] [address] [employer]: DUKE Nguyenonocytes (Bld) [#/Vol]0.49 10*3/uLNormal 0.10-1.20MerPeaceHealth [facility] on above:Performed By: #### BMPX, CDP #### [facility] [address] [place] [address] [employer]: DUKE Nguyenonocytes/100 WBC (Bld)6 %Normal3-12MerPeaceHealth Peace Island Hospital on above:Performed By: #### BMPX, CDP #### [facility] [address] [place] [address] [employer]: Chris Nguyenophil (Seg)72 %Oinm80-12PpvvrSaint Cabrini HospitalComsouthwest regional rehabilitation center on above:Performed By: #### BMPX, CDP #### [facility] [address] [place] [address] [employer]: BOB NguyenBC Automated0.0 per 100 WBCNormal0.0[facility] on above:Performed By: #### BMPX, CDP #### [facility] [address] [place] [address] [employer]: VONDA Nguyenlatelet mean volume (Bld) [Entitic vol]8.8 fL Normal8.1-13.5[facility] on above:Performed By: #### BMPX, CDP #### [facility] [address] [place] [address] [employer]: Dacia Nguyen (d) [#/Vol]242 10*3/bJOaijqs777-517 [facility] on above:Performed By: #### BMPX, CDP #### [facility] [address] [place] [address] [employer]: RONNIE Nguyen (d) [#/Vol]3.35 10*6/uLLow4.21-5.77[facility] on above:Performed By: #### BMPX, CDP #### [facility] [address] [place] [address] [employer]: CELINA Nguyen (d) [#/Vol]7.9 10*3/uLNormal3.5-11.3MParkview Health Bryan Hospital on above:Performed By: #### BMPX, CDP #### [facility] [address] [place] [address] [employer]: Serafin Nguyenimemarek Rejectionon [id number] for rejectionUnable to perform testing: Specimen clotted.[facility] HospitalComsouthwest regional rehabilitation center on above:Performed By: #### CDP, BMPX #### [facility] [address] [place] [address] [employer]: Jermain Nguyen of sample.BLOODNormUniversity Hospitals Beach[facility] on above:Performed By: #### CDP, BMPX #### [facility] [address] [place] [address] [employer]: Hadley Smith MDTest orderedCDPNormalNationwide Children'S Hospital Comment on above:Performed By: #### CDP, BMPX #### [facility] [address] [place] [address] [employer]: Karishma Nguyenc Metab w/rfx MGon [id number] gap [Moles/Vol]13 mmol/LNormal9-17[facility] HospitalComment on above:Performed By: #### CDP, BMPX #### [facility] [address] [place] [address] [employer]: STUART Nguyen/CRE Lmsir23Jixh6-50MsigrNationwide Children'S Hospital Comment on above:Performed By: #### CDP, BMPX #### [facility] [address] [place], [place] [address] [address] [employer]: PATTI Nguyenalcium [Mass/Vol]9.6 mg/dLNormal8.6-10.4[facility] HospitalComment on above:Performed By: #### CDP, BMPX #### [facility] [address] [place] [address] [employer]: PATTI Nguyenhloride [Moles/Vol]106 mmol/QVaeani20-667ZibncNationwide Children'S HospitalComsouthwest regional rehabilitation center on above:Performed By: #### CDP, BMPX #### [facility] [address] [place] [address] [employer]: Hadley Smith MDCO2 [Moles/Vol]28 mmol/HNypqwe72-04XtdzwNationwide Children'S HospitalComsouthwest regional rehabilitation center on above:Performed By: #### CDP, BMPX #### [facility] [address] [place] [address] [employer]: PATTI Nguyenreatinine [Mass/Vol]0.8 mg/dLNormal0.7-1.2 [facility] HospitalComment on above:Performed By: #### CDP, BMPX #### [facility] [address] [place] [address] [employer]: Hadley Smith MDGFR/1.73 sq M.predicted among non-blacks MDRD (S/P/Bld) [Vol rate/Area]mL/min/{1.73_m2}Normal>60[facility] John Medical CenterComment on above:Result Comment: These results are not intended for [...] or following therapy that affects renal tubular secretion.Performed By: #### CDP, BMPX #### [facility] [address] [place] [address] [employer]: Hadley Smith MDGlucose [Mass/Vol]83 mg/tRAjmtaa17-33Eyoiq [facility] St[facility] John Medical CenterComment on above:Performed By: #### CDP, BMPX #### [facility] [address] [place] [address] [employer]: VONDA Nguyenotassium [Moles/Vol]3.6 mmol/LLow3.7-5.3[facility] [address] John Medical CenterComment on above:Performed By: #### CDP, BMPX #### [facility] [address] [place] [address] [employer]: GIN Nguyenodium [Moles/Vol]147 mmol/IVbuz198-417Ubyag [facility]health St. John Medical CenterComment on above:Performed By: #### CDP, BMPX #### [facility] [address] [facility]. [place], [place] [address] [employer]: Hadley Smith MDUrea nitrogen [Mass/Vol]23 mg/dLNormal8-23[facility] John Medical CenterComment on above:Performed By: #### MIESHA, BMPX #### [facility] [address] [facility] [place] [address] [employer]: Hadley Smith MDBasaint elizabeth hebron Metabolic Panel w/ Reflex to MGon [id number] gap [Moles/Vol]13 mmol/L9 - 17 mmol/LBON [facility] Calcium [Mass/Vol]9.6 mg/dL8.6 - 10.4 mg/dLBON [facility] AdlogixY HEALTHChloride [Moles/Vol]106 mmol/L98 - 107 mmol/LBON [facility] AdlogixY HEALTHCO2 [Moles/Vol]28 mmol/L20 - 31 mmol/LBON SECHipLogicCreatinine [Mass/Vol]0.8 mg/dL0.7 - 1.2 mg/dLBON SECIndiaHomes HEALTHGFR/1.73 sq M.predicted MDRD (S/P/Bld) [Vol rate/Area]- PINFBON [facility]OS[facility] - TRUMBULLComment on above: These results are not intended [...] therapy that affects renal tubular secretion. Glucose [Mass/Vol]83 mg/dL70 - 99 mg/dLBON SECHipLogicInterpretation and review of laboratory resultsAbnormalBON [facility] MERCY HEALTHPotassium [Moles/Vol]3.6 mmol/LLow3.7 - 5.3 mmol/LBON [facility] AdlogixY HEALTHSodium [Moles/Vol]147 mmol/BDyhk972 - 144 mmol/LBON [facility] [employer] HEALTHUrea nitrogen [Mass/Vol]23 mg/dL8 - 23 mg/dLBON SECSURGICAL SPECIALTY CENTER HEALTHUrea nitrogen/Creatinine [Mass ratio]29 mg/mgHigh9 - 20BON [facility] CENTERBON [facility] CBC with Auto Differentialon [id number] (Bld) [#/Vol]0.05 10*3/uLBON [facility]RS [facility] HEALTHBasophils/100 WBC (Bld)1 %0 - 2 %[facility] SECSURGICAL SPECIALTY CENTER HEALTH Eosinophils (Bld) [#/Vol]0.09 10*3/uLBON [facility]RS [facility] COUNTY REGIONAL MEDICAL CENTEREosinophils/100 WBC (Bld)1 %1 - 4 %[facility] MEDICAL CENTERErythrocyte distribution width (RBC) [Ratio]13.1 %11.8 - 14.4 %BON [facility] TRUM[facility]ULLHematocrit (Bld) [Volume fraction]33.5 %Low40.7 - 50.3 %CJW MEDICAL CENTERHemoglobin (Bld) [Mass/Vol]10.9 g/dLLow13.0 - 17.0 g/dLBON SECOHIOHEALTH PICKERINGTON METHODIST HOSPITALImmature granulocytes (Bld) [#/Vol]0.02 10*3/uLBON [facility]RS [facility] MEDICAL CENTERImmature granulocytes/100 WBC (Bld)0 %0BON [facility] TRUMBULLInterpretation and review of laboratory resultsAbnormalBON [facility]OS[facility] TRUMBULLLymphocytes/100 WBC (Bld)16 %Low24 - 43 %[facility] SEC[facility] HEALTHLymphocytes/100 WBC (Bld)1.26 %[facility] HOSPITALH (RBC) [Entitic mass]33.1 pg25.2 - 33.5 pgBON MERCY HEALTH FAIRFIELD HOSPITALHC (RBC) [Mass/Vol]32.5 g/dL28.4 - 34.8 g/dLBON SECSOUTHERN OHIO MEDICAL CENTERV (RBC) [Entitic vol]101.8 fL82.6 - 102.9 fLBON SECSURGICAL SPECIALTY CENTER HEALTHMonocytes/100 WBC (Bld)7 %3 - 12 %[facility] HEALTHMonocytes/100 WBC (Bld)0.55 %BON SECSURGICAL SPECIALTY CENTER HEALTHNeutrophils/100 WBC (Bld)75 %High36 - 65 %BON SECOHIOHEALTH PICKERINGTON METHODIST HOSPITALNucleated RBC/100 WBC (Bld) [Ratio]0.0 %0.0 per 100 WBCCJW MEDICAL CENTERPlatelet mean volume (Bld) [Entitic vol]8.8 fL8.1 - 13.5 fLCJW MEDICAL CENTERPlatelets (Bld) [#/Vol]267 10*3/uLBON [facility]OS[facility] - TRUMBULLRBC (Bld) [#/Vol]3.29 10*6/uLLow4.21 - 5.77 m/uLBON [facility] TRUMBULLSegmented neutrophils/100 WBC (Bld)6.09 %BON [facility]OS[facility] - TRUMBULLWBC other (Bld) [#/Vol] 8.1BON [facility] NURSING HOMECBC with Diffon 04-26-2023 Abs. Basophil0.05 k/uLNormal0.00-0.20[facility]S HospitalComment on above: Performed By: #### CDP, BMPX #### [facility] [address] [place] [address] [employer]: Jaret Nguyen.Imm.Granulocyte0.02 k/uLNormal0.00-0.30 [facility] HospitalComment on above:Performed By: #### CDP, BMPX #### [facility] [address] [place] [address] [employer]: Jaret Nguyen.Neutrophil (Seg)6.09 k/uLNormal1.50-8.10 [facility] HospitalComment on above:Performed By: #### CDP, BMPX #### [facility] [address] [place] [address] [employer]: Ella Nguyensophils/100 WBC (Bld)1 %Normal0-2MercLocated within Highline Medical CenterComment on above:Performed By: #### CDP, BMPX #### [facility] [address] [place] [address] [employer]: MARISOL Nguyenosinophils (Bld) [#/Vol]0.09 10*3/uLNormal 0.00-0.44[facility] HospitalComsouthwest regional rehabilitation center on above:Performed By: #### CDP, BMPX #### [facility] [address] [place] [address] [employer]: MARISOL Nguyenosinophils/100 WBC (Bld)1 %Normal1-4[facility]S HospitalComment on above:Performed By: #### CDP, BMPX #### [facility] [address] [place] [address] [employer]: Hadley Smith MDErythrocyte distribution width (RBC) [Ratio] 13.1 %Xnwbcq35.8-14.4[facility]S HospitalComment on above:Performed By: #### CDP, BMPX #### [facility] [address] [place] [address] [employer]: Hadley Smith MDHematocrit (Bld) [Volume fraction]33.5 %Low 40.7-50.3[facility] Medical CenterComsouthwest regional rehabilitation center on above:Performed By: #### CDP, BMPX #### [facility] [address] [place] [address] [employer]: Hadley Smith MDHemoglobin (Bld) [Mass/Vol]10.9 g/dLLow 13.0-17.0[facility] HospitalComment on above:Performed By: #### CDP, BMPX #### [facility] [address] [place] [address] [employer]: Hadley Smith MDImmature granulocytes/100 WBC (Bld)0 %Normal0 [facility] HospitalComsouthwest [facility] rehabilitation center on above:Performed By: #### CDP, BMPX #### [facility] [address] [facility] [place] [address] [employer]: Silas Nguyenhocytalejandra (Bld) [#/Vol]1.26 10*3/uLNormal 1.10-3.70[facility] HospitalComsouthwest regional rehabilitation center on above:Performed By: #### CDP, BMPX #### [facility] [address] [place] [address] [employer]: Wade Nguyencytalejandra/100 WBC (Bld)16 %Gwl35-66CyjpxNationwide Children'S HospitalComsouthwest regional rehabilitation center on above:Performed By: #### CDP, BMPX #### [facility] [address] [place] [address]. [place] [address] [employer]: FRANCHESCA Nguyen (RBC) [Entitic mass]33.1 wmQatald03.2-33.5 [facility] HospitalComsouthwest [facility] rehabilitation center on above:Performed By: #### CDP, BMPX #### [facility] [address] [place] [address]. [place] [address] [employer]: FRANCHESCA NguyenC (RBC) [Mass/Vol]32.5 g/bZUkpnzh03.4-34.8 [facility] HospitalComsouthwest regional rehabilitation center on above:Performed By: #### CDP, BMPX #### [facility] [address] [place] [address]. [place] [address] [employer]: DUKE NguyenCV (RBC) [Entitic vol]101.8 aVAmetsb82.6-102.9 [facility] HospitalComsouth[facility] center on above:Performed By: #### CDP, BMPX #### [facility] [address] [place] [address]. [place] [address] [employer]: Hadley Sarah, MDMonocytes (Bld) [#/Vol]0.55 10*3/uLNormal 0.10-1.20[facility] HospitalComsouthwest [facility] rehabilitation center on above:Performed By: #### CDP, BMPX #### [facility] [address] [place] [address] [employer]: DUKE Nguyenonocytes/100 WBC (Bld)7 %Normal3-12[facility] on above:Performed By: #### CDP, BMPX #### [facility] [address] [place] [address] [employer]: Darby Nguyen (Seg)75 %Tiln73-42UksdfNationwide Children'S HospitalComsouthwest regional rehabilitation center on above:Performed By: #### CDP, BMPX #### [facility] [address] [place] [address] [employer]: Hadley Smith MDNRBC Automated0.0 per 100 WBCNormal0.0[facility] on above:Performed By: #### CDP, BMPX #### [facility] [address] [place] [address] [employer]: Maria Luisa Nguyen mean volume (Bld) [Entitic vol]8.8 fL Normal8.1-13.5[facility] on above:Performed By: #### CDP, BMPX #### [facility] [address] [place] [address] [employer]: Abel Nguyentezeenat (Bld) [#/Vol]267 10*3/mWIbwtdo978-096 [facility] HospitalComsouthwest [facility] center on above:Performed By: #### CDP, BMPX #### [facility] [address] [place] [address] [place] [address] [employer]: RONNIE Nguyen (Bld) [#/Vol]3.29 10*6/uLLow4.21-5.77[facility] John Medical CenterComment on above:Performed By: #### CDP, BMPX #### [facility] [address] [place] [address] [employer]: CELINA Nguyen (Bld) [#/Vol]8.1 10*3/uLNormal3.5-11.3[facility] John Medical CenterComment on above:Performed By: #### CDP, BMPX #### [facility] [address] [place] [address] [employer]: SAUL Nguyen awake and asleepon [id number] aaron MD 04/26/2023 5:34 PM EEG REPORT Patient: Amol Taylor Age: 68 y.o. Referring Provider: Carson Dior MD Attending Physician: Bolivar Valdovinos DO History: This is a routine scalp EEG recorded with time-locked video monitoring. Patient is being evaluated for seizure like activity. This EEG was performed to evaluate for focal and epileptiform abnormalities. Amol Taylor Current Facility-Administered Medications Medication Dose Route Frequency Provider Last Rate Last Admin LORazepam (ATIVAN) injection 4 mg 4 mg IntraVENous Q5 Min PRN Simran Villa APRN - [employer] 4 mg at 04/26/23 0330 lacosamide (VIMPAT) 150 mg in sodium chloride 0.9 % 65 mL IVPB 150 mg IntraVENous BID Ladi Saab DO 130 mL/hr at 04/26/23 1720 150 mg at 04/26/23 1720 levETIRAcetam (KEPPRA) injection 1,500 mg 1,500 mg IntraVENous Daily Simran Villa APRN - [employer]SMAN 1,500 mg at 04/26/23 0907 levETIRAcetam (KEPPRA) injection 2,000 mg 2,000 mg IntraVENous Nightly Simran VillaBIBIANAN - PRODUCTION WOOD CRAFTSMAN 2,000 mg at 04/25/232040 sodium chloride flush 0.9 % injection 5-40 mL 5-40 mL IntraVENous 2 times per day Gloria Faust PROGRAM DIR - PATTERN PAINTER 10 mL at 04/25/232041 sodium chloride flush 0.9 % injection 10 mL 10 mL IntraVENous PRN Gloria Faust APRN - PATTERN PAINTER 0.9 % sodium chloride infusion IntraVENous PRN Gloria Faust APRN - PATTERN PAINTER 5 mL/hr at 04/26/23 0747 New Bag at 04/26/23 0747 potassium chloride (KLOR-CON M) extended release tablet 40 mEq 40 mEq Oral PRN Gloria Faust APRN - OTONIEL Or potassium bicarb-citric acid (EFFER-K) effervescent tablet 40 mEq 40 mEq Oral PRN Gloria Faust APRN - OTONIEL Or potassium chloride 10 mEq/100 mL IVPB (Peripheral Line) 10 mEq IntraVENous PRN Gloria Faust APRN - OTONIEL magnesium sulfate 1000 mg in dextrose 5% 100 mL IVPB 1,000 mg IntraVENous PRN Gloria Faust APRN - OTONIEL enoxaparin (LOVENOX) injection 40 mg 40 mg SubCUTAneous Daily Gloria Faust APRN - PATTERN PAINTER 40 mg at 04/26/23 0907 ondansetron (ZOFRAN-ODT) disintegrating tablet 4 mg 4 mg Oral Q8H PRN Gloria Faust APRN - CNP Or ondansetron (ZOFRAN) injection 4 mg 4 mg IntraVENous Q6H PRN Gloria Faust APRN - OTONIEL acetaminophen (TYLENOL) tablet 650 mg 650 mg Oral Q6H PRN Gloria Faust APRN - OTONIEL Or acetaminophen (TYLENOL) suppository 650 mg 650 mg Rectal Q6H PRN Gloria Faust APRN - PATTERN PAINTER 0.9 % sodium chloride infusion IntraVENous Continuous Gloria Faust APRN - PATTERN PAINTER 50 mL/hr at 04/26/23 0440 New Bag at 04/26/23 0440 prochlorperazine (COMPAZINE) injection 10 mg 10 mg IntraVENous Q6H PRN Govind, Gloria M, PROGRAM DIR - PATTERN PAINTER Technical Description: This is a 22 channel [...] recommended. Stevie Palafox MD 04/26/2023 5:29 PM [facility]ULLXR ABDOMEN (KUB) (SINGLE AP VIEW)on [id number] ABDOMEN (KUB) (SINGLE AP VIEW)EXAMINATION: ONE SUPINE XRAY VIEW(S) OF THE ABDOMEN [...] Signed by: Daquan Mcdermott MD 04/26/[address] John Medical CenterXR Abdomen Single viewon 04-26-2023 Nonobstructive bowel gas pattern. Enteric tube remains in place. MHPN RIS CONSOLIDATEDEXAMINATION: ONE SUPINE XRAY VIEW(S) OF THE ABDOMEN 04/26/2023 8:59 am COMPARISON: 04/24/2023, 04/23/2023 HISTORY: ORDERING SYSTEM PROVIDED HISTORY: sbo vs ileus TECHNOLOGIST PROVIDED HISTORY: sbo vs ileus Reason for Exam: SBO vs ileus FINDINGS: Gas is present within nondilated small and large bowel. The enteric tube tip and side hole project at the level of the body of the stomach. Daquan Nava MD - 04/26/2023 EXAMINATION: ONE SUPINE XRAY [...] gas pattern. Enteric tube remains in place. [facility] CENTEREvolve PartnersSELECT MEDICAL CLEVEL[facility], AVONRadiology Study observation (narrative)[facility] Abdomen Single viewOrdered By: Daquan Mcdermott on [id number] [facility] STATE HOSPITALHipLogic Work Phone: BUN & Creatinineon [id number] [Mass/Vol]0.7 mg/dL0.7 - 1.2 mg/dLBON ARIZONA STATE HOSPITALHipLogicGFR/1.73 sq M.predicted MDRD (S/P/Bld) [Vol rate/Area]- PINFBON ARIZONA STATE HOSPITALFIRE1 [facility] MED[facility] CENTERComment on above: These results are not intended [...] tubular secretion. Interpretation and review of laboratory resultsAbnormalHOLYOKE MEDICAL CENTEREvolve PartnersSELECT MEDICAL [facility] Urea nitrogen [Mass/Vol]24 mg/dLHigh8 - 23 mg/dLBON ARIZONA STATE HOSPITALEvolve PartnersUP HEALTH SYSTEMFIRE1 MERCY HEALTHBUN + Creatinineon [id number] [Mass/Vol]0.7 mg/dL Normal0.7-1.2Mer[facility] John Medical CenterComment on above:Performed By: #### BUNCRT #### [facility] [address] [facility] [place] [address] [employer]: Hadley Smith MDGFR/1.73 sq M.predicted among non-blacks MDRD (S/P/Bld) [Vol rate/Area]mL/min/{1.73_m2}Normal>60[facility] Medical CenterComsouthwest regional rehabilitation center on above:Result Comment: These results are not intended for [...] or following therapy that affects renal tubular secretion.Performed By: #### BUNCRT #### [facility] [address] [facility]. [place], [place] [id number] [employer]: Hadley Smith MDUrea nitrogen [Mass/Vol]24 mg/dLHigh8-23[facility] Children'S HospitalComment on above:Performed By: #### BUNCRT #### [facility] [facility]. [place], [place] [id number] [employer]: Hadley Smith MDBasic Metabolic Panelon [id number] gap [Moles/Vol]9 mmol/L9 - 17 mmol/LBON SECOURS MERCY HEALTHCalcium [Mass/Vol]9.2 mg/dL8.6 - 10.4 mg/dLBON SECOURS MERCY HEALTHChloride [Moles/Vol]105 mmol/L98 - 107 mmol/LBON SECOURS MERCY HEALTHCO2 [Moles/Vol]28 mmol/L20 - 31 mmol/LBON SECOURS [facility]OS[facility]ITALY HEALTHCreatinine [Mass/Vol]0.8 mg/dL0.7 - 1.2 mg/dLBON [facility] TRUMBULLGFR/1.73 sq M.predicted MDRD (S/P/Bld) [Vol rate/Area]- PINFBON SELECT MED[facility] SPECIALTY [facility]OSPITAL - TRUMBULLComment on above: These results are not intended [...] therapy that affects renal tubular secretion. Glucose [Mass/Vol]83 mg/dL70 - 99 mg/dLBON [facility] - TRUMBULLInterpretation and review of laboratory resultsAbnormalCJW MEDICAL CENTERPotassium [Moles/Vol]3.7 mmol/L3.7 - 5.3 mmol/LBON [facility]OS[facility] - TRUMBULLSodium [Moles/Vol] 142 mmol/L135 - 144 mmol/LBON [facility] - TRUMBULLUrea nitrogen [Mass/Vol]23 mg/dL8 - 23 mg/dLBON [facility]OS[facility] - TRUMBULLUrea nitrogen/Creatinine [Mass ratio]29 mg/mgHigh9 - 20BON [facility] NURSING HOMEBasic Metabolic Profon [id number] gap [Moles/Vol]9 mmol/LNormal9-17[facility] Comment on above:Performed By: #### BMPX, CDP #### [facility] [address] [facility] [place] [address] [employer]: Hadley Smith MDBUN/CRE Vkxiv52Srob3-74WiwlcNationwide Children'S Hospital Comment on above:Performed By: #### BMPX, CDP #### [facility] [address] [facility]. [place], [place] [id number] [employer]: PATTI gNuyenalcium [Mass/Vol]9.2 mg/dLNormal8.6-10.4[facility] Children'S HospitalComment on above:Performed By: #### BMPX, CDP #### [facility] [address] [facility] [place] [address] [employer]: PATTI Nguyenhloride [Moles/Vol]105 mmol/RMmineu11-746OrodnNationwide Children'S HospitalComsouthwest regional rehabilitation center on above:Performed By: #### BMPX, CDP #### [facility] [address] [facility] [place] [address] [employer]: Hadley Smith MDCO2 [Moles/Vol]28 mmol/YPyumif55-13WfwdwNationwide Children'S HospitalComsouthwest regional rehabilitation center on above:Performed By: #### BMPX, CDP #### [facility] [address] [facility] [place] [address] [employer]: PATTI Nguyenreatinine [Mass/Vol]0.8 mg/dLNormal0.7-1.2 [facility] HospitalComsouthwest regional rehabilitation center on above:Performed By: #### BMPX, CDP #### [facility] [address] [facility] [place] [address] [employer]: Hadley Smith MDGFR/1.73 sq M.predicted among non-blacks MDRD (S/P/Bld) [Vol rate/Area]mL/min/{1.73_m2}Normal>60[facility] HospitalComsouthwest regional rehabilitation center on above:Result Comment: These results are not intended for [...] or following therapy that affects renal tubular secretion.Performed By: #### BMPX, CDP #### [facility] [address] [facility] [place] [address] [employer]: Hadley Smith MDGlucose [Mass/Vol]83 mg/pRGirkhv56-60Tqrmb [facility] Lake HospitalComment on above:Performed By: #### BMPX, CDP #### [facility] [address] [place] [address] [employer]: VONDA Nguyenotassium [Moles/Vol]3.7 mmol/LNormal3.7-5.3 [facility]S HospitalComment on above:Performed By: #### BMPX, CDP #### [facility] [address] [place] [address] [employer]: Hadley Smith MDSodium [Moles/Vol]142 mmol/JWwseqk020-564GymybNationwide Children'S HospitalComsouthwest regional rehabilitation center on above:Performed By: #### BMPX, CDP #### [facility] [address] [place] [address] [employer]: Hadley Smith MDUrea nitrogen [Mass/Vol]23 mg/dLNormal8-23[facility] HospitalComsouthwest regional rehabilitation center on above:Performed By: #### BMPX, CDP #### [facility] [address] [place] [address] [employer]: PATTI Nguyen with Auto Differentialon 04-25-2023 Basophils (Bld) [#/Vol]0.04 10*3/uLBON SECOURS MERCY HEALTHBasophils/100 WBC (Bld)1 %0 - 2 %[facility] HEALTHEosinophils (Bld) [#/Vol]0.23 10*3/uLBON SECOURS MERCY HEALTHEosinophils/100 WBC (Bld)4 %1 - 4 %[facility] Erythrocyte distribution width (RBC) [Ratio]13.2 %11.8 - 14.4 %[facility] HEALTHHematocrit (Bld) [Volume fraction]32.0 %Low40.7 - 50.3 %[facility] HEALTHHemoglobin (Bld) [Mass/Vol]10.2 g/dLLow13.0 - 17.0 g/dLBON [facility] TRUM[facility]ULLImmature granulocytes (Bld) [#/Vol]0.06 10*3/uLBON [facility] Immature granulocytes/100 WBC (Bld)1 %Ifkl1WSQ [facility] Interpretation and review of laboratory resultsAbnormalBON [facility] Lymphocytes/100 WBC (Bld)23 %Low24 - 43 %CJW MEDICAL CENTERLymphocytes/100 WBC (Bld)1.51 %[facility] HOSPITALH (RBC) [Entitic mass]32.8 pg25.2 - 33.5 pgBON MERCY [facility]ALTH FAIRFIELD HOSPITALHC (RBC) [Mass/Vol]31.9 g/dL28.4 - 34.8 g/dLBON [facility]ALTH FAIRFIELD HOSPITALV (RBC) [Entitic vol]102.9 fL82.6 - 102.9 fLBON [facility] TRUM[facility]ULLMonocytes/100 WBC (Bld)7 %3 - 12 %[facility] Monocytes/100 WBC (Bld)0.45 %[facility] MEDICAL CENTERNeutrophils/100 WBC (Bld)64 %36 - 65 %CJW MEDICAL CENTERNucleated RBC/100 WBC (Bld) [Ratio]0.0 %0.0 per 100 WBCBON [facility]OS[facility] - TRUMBULLPlatelet mean volume (Bld) [Entitic vol]8.9 fL8.1 - 13.5 fLBON [facility]OS[facility] - TRUMBULLPlatelets (Bld) [#/Vol]283 10*3/uLBON [facility]OS[facility] - TRUMBULLRBC (Bld) [#/Vol]3.11 10*6/uLLow4.21 - 5.77 m/uLBON [facility] TRUMBULLSegmented neutrophils/100 WBC (Bld)4.22 %CJW MEDICAL CENTERWBC other (Bld) [#/Vol]6.5BON SECCUMBERLAND MEMORIAL HOSPITALCBC with Diffon [id number]. Basophil0.04 k/uLNormal0.00-0.20[facility] Comment on above:Performed By: #### BMPX, CDP #### [facility] [address] [place] [address] [employer]: MDAbs. PatrickImm.Granulocyte0.06 k/uLNormal0.00-0.30 [facility] on above:Performed By: #### BMPX, CDP #### [facility] [address] [place] [address] [employer]: Jaret Nguyen.Neutrophil (Seg)4.22 k/uLNormal1.50-8.10 [facility] HospitalComsouthwest regional rehabilitation center on above:Performed By: #### BMPX, CDP #### [facility] [address] [place] [address] [employer]: Hadley Smith MDBasophils/100 WBC (Bld)1 %Normal0-2[facility] Medical CenterComsouthwest regional rehabilitation center on above:Performed By: #### BMPX, CDP #### [facility] [address] [place] [address] [employer]: MARISOL Nguyenosinophils (Bld) [#/Vol]0.23 10*3/uLNormal 0.00-0.44MerSaint Cabrini HospitalComsouthwest regional rehabilitation center on above:Performed By: #### BMPX, CDP #### [facility] [address] [place] [address] [employer]: MARISOL Nguyenosinophils/100 WBC (Bld)4 %Normal1-4[facility] on above:Performed By: #### BMPX, CDP #### [facility] [address] [place] [address] [employer]: Hadley Smith MDErythrocyte distribution width (RBC) [Ratio] 13.2 %Qjpttr05.8-14.4[facility]'S HospitalComment on above:Performed By: #### BMPX, CDP #### [facility] [place] [address] [employer]: Hadley Smith MDHematocrit (Bld) [Volume fraction]32.0 %Low 40.7-50.3[facility] Medical CenterComsouthwest regional rehabilitation center on above:Performed By: #### BMPX, CDP #### [facility] [address] [place] [address] [employer]: Hadley Smith MDHemoglobin (Bld) [Mass/Vol]10.2 g/dLLow 13.0-17.0[facility] HospitalComsouthwest regional rehabilitation center on above:Performed By: #### BMPX, CDP #### [facility] [address] [place] [address] [employer]: Malou Nguyenture granulocytes/100 WBC (Bld)1 %High0 [facility] HospitalComsouthwest regional rehabilitation center on above:Performed By: #### BMPX, CDP #### [facility] [address] [place] [address] [employer]: Luis Nguyenmphocytes (Bld) [#/Vol]1.51 10*3/uLNormal 1.10-3.70[facility] HospitalComsouthwest regional rehabilitation center on above:Performed By: #### BMPX, CDP #### [facility] [address] [place] [address] [employer]: Luis Nguyenmphocytes/100 WBC (Bld)23 %Ziz13-07YgupbNationwide Children'S HospitalComsouthwest regional rehabilitation center on above:Performed By: #### BMPX, CDP #### [facility] [address] [place] [address] [employer]: DUKE NguyenCH (RBC) [Entitic mass]32.8 flVgcfsi79.2-33.5 [facility] HospitalComment on above:Performed By: #### BMPX, CDP #### [facility] [address] [place] [address] [employer]: DUKE NguyenCHC (RBC) [Mass/Vol]31.9 g/iFZskrpr63.4-34.8 [facility] HospitalComment on above:Performed By: #### BMPX, CDP #### [facility] [address] [place] [address] [employer]: DUKE NguyenCV (RBC) [Entitic vol]102.9 iYIhirqr68.6-102.9 [facility] HospitalComsouthwest regional rehabilitation center on above:Performed By: #### BMPX, CDP #### [facility] [address] [place] [address] [employer]: DUKE Nguyenonocytes (Bld) [#/Vol]0.45 10*3/uLNormal 0.10-1.20[facility] John Medical CenterComment on above:Performed By: #### BMPX, CDP #### [facility] [address] [place] [address] [employer]: DUKE Nguyenonocytes/100 WBC (Bld)7 %Normal3-12[facility] John Medical CenterComment on above:Performed By: #### BMPX, CDP #### [facility] [address] [place] [address]. [place] [address] [employer]: Chris Nguyenophil (Seg)64 %Jvkiil97-36Qzdni [facility] John Medical CenterComment on above:Performed By: #### BMPX, CDP #### [facility] [address] [place] [address] [employer]: SOY Nguyen Automated0.0 per 100 WBCNormal0.0[facility] on above:Performed By: #### BMPX, CDP #### [facility] [address] [facility] [place] [address] [employer]: Maria Luisa Nguyen mean volume (Bld) [Entitic vol]8.9 fL Normal8.1-13.5[facility] HospitalComsouthwest regional rehabilitation center on above:Performed By: #### BMPX, CDP #### [facility] [address] [facility] [place] [address] [employer]: Dacia Nguyen (Bld) [#/Vol]283 10*3/oNHvibio485-634 [facility] HospitalComsouthwest regional rehabilitation center on above:Performed By: #### BMPX, CDP #### [facility] [facility] [place] [address] [employer]: RONNIE Nguyen (Bld) [#/Vol]3.11 10*6/uLLow4.21-5.77[facility] on above:Performed By: #### BMPX, CDP #### [facility] [facility] [place] [address] [employer]: CELINA Nguyen (Bld) [#/Vol]6.5 10*3/uLNormal3.5-11.3MParkview Health Bryan Hospital on above:Performed By: #### BMPX, CDP #### [facility] [address] [place] [address] [employer]: Samir Nguyen, Sepsison 22-18-4661Rphocg Acid, Sepsis 0.6 mmol/LNormal0.5-1.9[facility] Healthcy [facility] John Medical CenterComment on above:Performed By: #### BMPX, CDP #### [facility] [address] [place] [address] [employer]: Hadley Smith MDLactate (BldV) [Moles/Vol]0.6 mmol/L0.5 - 1.9 mmol/LBON [facility] XR Chest AP single viewon [id number] tube in satisfactory position. No acute process in the lungs. [facility] CONSOLIDATEDEXAMINATION: ONE XRAY VIEW OF THE CHEST 04/25/2023 [...] Cardiomediastinal silhouette and bony thorax are unchanged. [facility] Greg Murray MD - 04/25/2023 EXAMINATION: ONE XRAY VIEW [...] position. No acute process in the lungs. [facility] CENTERRadiology Study observation (narrative)[facility] Hospitalable XR Chest AP single viewOrdered By: Greg Hernandez on [id number] [employer] Work Phone: XR ABDOMEN FOR NG/OG/NE TUBE PLACEMENTon [id number] ABDOMEN FOR NG/OG/NE TUBE PLACEMENTEXAMINATION: ONE SUPINE XRAY VIEW(S) OF THE ABDOMEN [...] Signed by: Nik Bae MD 04/25/23 Final resultNormalMerSaint Cabrini Hospital1. NG tube extends into the upper stomach. 2. Moderate amount of gas and stool scattered in the proximal and mid colon. Moderate amount of gas can be identified in some loops of small bowel mainly in the left side of abdomen. MHPN RIS CONSOLIDATEDEXAMINATION: ONE SUPINE XRAY VIEW(S) OF THE ABDOMEN [...] pneumoperitoneum. Base of lungs are clear. MHPN Nik Pacheco MD - 04/25/2023 EXAMINATION: ONE SUPINE XRAY [...] mainly in the left side of abdomen. [facility] ABDOMEN FOR NG/OG/NE TUBE PLACEMENTOrdered By: Nik Bae on [id number] [facility] [employer] Work Phone: XR CHEST PORTABLEon [id number] CHEST PORTABLE EXAMINATION: ONE XRAY VIEW OF [...] Signed by: Greg Hernandez MD 04/25/23 Final resultNormalMerSaint Cabrini HospitalXR ABDOMEN FOR NG/OG/NE TUBE PLACEMENT on [id number] Study observation (narrative)[facility] Basic Metabolic Panelon [id number] gap [Moles/Vol]9 mmol/L5 - 15 mmol/L [facility] SystemCalcium [Mass/Vol]9.0 mg/dL8.5 - 10.5 mg/dLProMedica Health SystemChloride [Moles/Vol]108 mmol/L98 - 109 mmol/LProMedica Health SystemCO2 [Moles/Vol]20 mmol/LLow22 - 32 mmol/LProMedica Health SystemCreatinine [Mass/Vol]0.83 mg/dL0.60 - 1.30 mg/dLProMedica Health SystemeGFR (CKD-EPI)non-race dependent- PINFProMedica Health SystemGlucose [Mass/Vol]74 mg/dL65 - 99 mg/dLProMedica Health SystemInterpretation and review of laboratory resultsAbnormalProMedica Health SystemPotassium [Moles/Vol]5.0 mmol/L3.5 - 5.0 mmol/LProMedica Health SystemSodium [Moles/Vol]137 mmol/L134 - 146 mmol/L [facility] SystemUrea nitrogen [Mass/Vol]20 mg/dL5 - 27 mg/dLGreene Memorial HospitalCBC auto differentialon [id number] (Bld) [#/Vol]0.1 10*3/[facility] HospitalBasophils/100 WBC (Bld)1.0 %[facility] HospitalEosinophils (Bld) [#/Vol]0.3 10*3/[facility] HospitalEosinophils/100 WBC (Bld)3.9 %[facility] HospitalErythrocyte distribution width (RBC) [Ratio]13.6 %11.5 - 15.0 %[facility] HospitalHematocrit (Bld) [Volume fraction]34.5 %Low39 - 49 %[facility] HospitalHemoglobin (Bld) [Mass/Vol] 11.6 g/dLLow13.0 - 17.0 g/dLGreene Memorial HospitalInterpretation and review of laboratory resultsAbnormalGreene Memorial HospitalLymphocytes (Bld) [#/Vol]1.8 10*3/[facility] HospitalLymphocytes/100 WBC (Bld)24.6 %[facility] HospitalH (RBC) [Entitic mass]33.6 pg27 - 34 [facility] HospitalMCHC (RBC) [Mass/Vol]33.7 g/dL32 - 36 g/dLGreene Memorial HospitalMCV (RBC) [Entitic vol]100 fL80 - 100 [facility] SystemMonocytes (Bld) [#/Vol]0.6 10*3/[facility] HospitalMonocytes/100 WBC (Bld)8.5 %[facility] HospitalNeutrophils (Bld) [#/Vol]4.6 10*3/[facility] HospitalNeutrophils/100 WBC (Bld)62.0 % [facility] HospitalPlatelet mean volume (Bld) [Entitic vol]7.3 fL7 - 12 fL [facility] HospitalPlatelets (Bld) [#/Vol]245 10*3/[facility] RBC (Bld) [#/Vol]3.45 10*6/uLLowProMedica Health SystemWBC corrected for nucl RBC Auto (Bld) [#/Vol]7.4[facility] SystemMagnesium on 08-39-9662Fragpaimu [Mass/Vol]1.9 mg/dL1.8 - 2.6 mg/dLGreene Memorial Hospital No Panel Informationon [id number] Memorial HospitalAcetone, (BetaHydroxybutyrate, Ketone) quantitative, serumon [id number] hydroxybutyrate [Moles/Vol]mmol/L0.02 - 0.27 mmol/[facility] SystemBasic Metabolic Panelon [id number] gap [Moles/Vol]7 mmol/L5 - 15 mmol/LProMedica Health SystemCalcium [Mass/Vol]8.6 mg/dL8.5 - 10.5 mg/dLBrown Memorial [facility] System Chloride [Moles/Vol]111 mmol/LHigh98 - 109 mmol/[facility] SystemCO2 [Moles/Vol]22 mmol/L22 - 32 mmol/[facility] SystemCreatinine [Mass/Vol] 0.71 mg/dL0.60 - 1.30 mg/dLGreene Memorial HospitaleGFR (CKD-EPI)non-race dependent- PINEastern Missouri State HospitalGlucose [Mass/Vol]99 mg/dL65 - 99 mg/dL [facility] SystemInterpretation and review of laboratory resultsAbnormal [facility] SystemPotassium [Moles/Vol]4.6 mmol/L3.5 - 5.0 mmol/[facility] Clubica Health SystemSodium [Moles/Vol]140 mmol/L134 - 146 mmol/[facility] Urea nitrogen [Mass/Vol]17 mg/dL5 - 27 mg/dLBrown Memorial Hospital SystemBrown Memorial Hospital SystemAnion gap [Moles/Vol]6 mmol/L5 - 15 mmol/[facility] Calcium [Mass/Vol]8.6 mg/dL8.5 - 10.5 mg/dLBrown Memorial Hospital SystemChloride [Moles/Vol]111 mmol/LHigh98 - 109 mmol/[facility] Health SystemCO2 [Moles/Vol]20 mmol/LLow22 - 32 mmol/[facility] SystemCreatinine [Mass/Vol]0.70 mg/dL 0.60 - 1.30 mg/dLGreene Memorial HospitaleGFR (CKD-EPI)non-race dependent- PINF [facility] HospitalGlucose [Mass/Vol]90 mg/dL65 - 99 mg/dLGreene Memorial HospitalPotassium [Moles/Vol]5.0 mmol/L3.5 - 5.0 mmol/LPrMercy Health Allen Hospital System Sodium [Moles/Vol]137 mmol/L134 - 146 mmol/LPrCentennial Peaks Hospital Health SystemUrea nitrogen [Mass/Vol]18 mg/dL5 - 27 mg/dLGreene Memorial HospitalBeta hydroxybutyrate [Moles/Vol]on [id number] Memorial HospitalCBC auto differentialon [id number] (Bld) [#/Vol]0.0 10*3/uLGreene Memorial HospitalBasophils/100 WBC (Bld)0.5 %[facility] HospitalEosinophils (Bld) [#/Vol]0.4 10*3/uL [facility] HospitalEosinophils/100 WBC (Bld)5.2 %[facility] Erythrocyte distribution width (RBC) [Ratio]13.7 %11.5 - 15.0 %[facility] HospitalHematocrit (Bld) [Volume fraction]31.0 %Low39 - 49 %[facility] HospitalHemoglobin (Bld) [Mass/Vol]10.4 g/dLLow13.0 - 17.0 g/dLGreene Memorial HospitalInterpretation and review of laboratory resultsAbnormalGreene Memorial HospitalLymphocytes (Bld) [#/Vol]1.7 10*3/uLGreene Memorial HospitalLymphocytes/100 WBC (Bld)20.8 %[facility] HospitalH (RBC) [Entitic mass]33.5 pg27 - 34 pg [facility] HospitalMCHC (RBC) [Mass/Vol]33.5 g/dL32 - 36 g/dLGreene Memorial HospitalMCV (RBC) [Entitic vol]100 fL80 - 100 [facility] Monocytes (Bld) [#/Vol]0.7 10*3/uLGreene Memorial HospitalMonocytes/100 WBC (Bld) 8.7 %[facility] HospitalNeutrophils (Bld) [#/Vol]5.2 10*3/uLProUniversity Hospitals [facility] SystemNeutrophils/100 WBC (Bld)64.8 %[facility] SystemPlatelet mean volume (Bld) [Entitic vol]6.9 fLLow7 - 12 [facility] SystemPlatelets (Bld) [#/Vol]232 10*3/uLProHelen Keller Hospital Health SystemRBC (Bld) [#/Vol]3.10 10*6/uLLow [facility] SystemWBC corrected for nucl RBC Auto (Bld) [#/Vol]8.0[facility] SystemLactate (P simon) [Moles/Vol]on 04-19-2023 [facility] HospitalLactate w/ Reflexon [id number] (P simon) [Moles/Vol] 0.6 mmol/L0.4 - 2.0 mmol/[facility] SystemMagnesiumon [id number] [Mass/Vol]1.7 mg/dLLow1.8 - 2.6 mg/dLGreene Memorial HospitalNo Panel Informationon [id number] and review of laboratory resultsAbnormal [facility] SystemPhosphoruson [id number] [Mass/Vol]3.0 mg/dL2.4 - 4.9 mg/dLGreene Memorial HospitalBasic Metabolic Panelon 08-89-7060Wmuas gap [Moles/Vol]9 mmol/L5 - 15 mmol/LProMedica Health System Calcium [Mass/Vol]8.5 mg/dL8.5 - 10.5 mg/dLBrown [facility] SystemChloride [Moles/Vol]108 mmol/L98 - 109 mmol/LProMedica Health SystemCO2 [Moles/Vol]26 mmol/L22 - 32 mmol/LProMedica Health SystemCreatinine [Mass/Vol]0.65 mg/dL0.60 - 1.30 mg/dLGreene Memorial HospitaleGFR (CKD-EPI)non-race dependent- PINF [facility] HospitalGlucose [Mass/Vol]93 mg/dL65 - 99 mg/dLGreene Memorial HospitalPotassium [Moles/Vol]4.6 mmol/L3.5 - 5.0 mmol/[facility] Sodium [Moles/Vol]143 mmol/L134 - 146 mmol/LPrMercy Health Allen Hospital SystemUrea nitrogen [Mass/Vol]19 mg/dL5 - 27 mg/dLTrumbull Memorial HospitalC auto differentialon 46-15-4679Lqvygortd (Bld) [#/Vol]0.0 10*3/uLGreene Memorial HospitalBasophils/100 WBC (Bld)0.5 %[facility] HospitalEosinophils (Bld) [#/Vol]0.3 10*3/uL [facility] HospitalEosinophils/100 WBC (Bld)3.3 %[facility] Erythrocyte distribution width (RBC) [Ratio]13.5 %11.5 - 15.0 %[facility] HospitalHematocrit (Bld) [Volume fraction]32.4 %Low39 - 49 %[facility] HospitalHemoglobin (Bld) [Mass/Vol]10.9 g/dLLow13.0 - 17.0 g/dLGreene Memorial HospitalInterpretation and review of laboratory resultsAbnormalGreene Memorial HospitalLymphocytes (Bld) [#/Vol]1.6 10*3/uLGreene Memorial HospitalLymphocytes/100 WBC (Bld)17.6 %[facility] HospitalH (RBC) [Entitic mass]33.1 pg27 - 34 pg [facility] HospitalMCHC (RBC) [Mass/Vol]33.7 g/dL32 - 36 g/dLGreene Memorial HospitalMCV (RBC) [Entitic vol]98 fL80 - 100 [facility] Monocytes (Bld) [#/Vol]1.1 10*3/uLHighGreene Memorial HospitalMonocytes/100 WBC (Bld)11.6 %[facility] HospitalNeutrophils (Bld) [#/Vol]6.1 10*3/uLGreene Memorial HospitalNeutrophils/100 WBC (Bld)67.0 %[facility] HospitalPlatelet mean volume (Bld) [Entitic vol]7.3 fL7 - 12 [facility] SystemPlatelets (Bld) [#/Vol]251 10*3/uLProUniversity Hospitals [facility] SystemRBC (Bld) [#/Vol]3.31 10*6/uLLow [facility] HospitalWBC corrected for nucl RBC Auto (Bld) [#/Vol]9.0[facility] UPMCLacosamideon 38-77-3496Aiyyvuesl Lab Test IDSee BelowGreene Memorial HospitalMagnesiumon 13-54-9798Mbtvqlxbl [Mass/Vol]2.2 mg/dL1.8 - 2.6 mg/dLGreene Memorial HospitalMagnesium [Mass/Vol]1.7 mg/dLLow1.8 - 2.6 mg/dLGreene Memorial HospitalMagnesium [Mass/Vol]on 43-24-6332Jlzbkysfyeqcyz and review of laboratory resultsAbnoUNC Health ChathamNo Panel Informationon 37-79-1594SvuVkgkjcLankenau Medical CenterPhosphate [Mass/Vol]on 70-74-4899Ghmjshcdkhscgp and review of laboratory resultsAbnoSouth Mississippi County Regional Medical CenterPhosphoruson 43-30-8977Cscuuzuta [Mass/Vol]2.2 mg/dLLow 2.4 - 4.9 mg/dLGreene Memorial HospitalReference Lab Test IDon 04-18-2023 [facility] HospitalBasic Metabolic Panelon 73-76-1322Wxppx gap [Moles/Vol]8 mmol/L5 - 15 mmol/[facility] SystemCalcium [Mass/Vol]8.3 mg/dLLow8.5 - 10.5 mg/dLGreene Memorial HospitalChloride [Moles/Vol]111 mmol/LHigh98 - 109 mmol/[facility] SystemCO2 [Moles/Vol]24 mmol/L22 - 32 mmol/[facility] SystemCreatinine [Mass/Vol]0.64 mg/dL0.60 - 1.30 mg/dLGreene Memorial HospitaleGFR (CKD-EPI)non-race dependent- PINEastern Missouri State HospitalGlucose [Mass/Vol]99 mg/dL65 - 99 mg/dLGreene Memorial HospitalPotassium [Moles/Vol]4.6 mmol/L3.5 - 5.0 mmol/LPrCentennial Peaks Hospital Health SystemSodium [Moles/Vol]143 mmol/L134 - 146 mmol/[facility] SystemUrea nitrogen [Mass/Vol]17 mg/dL5 - 27 mg/dL [facility] auto differentialon 66-22-1752Kldiwadog (Bld) [#/Vol] 0.0 10*3/uLGreene Memorial HospitalBasophils/100 WBC (Bld)0.5 %[facility] HospitalEosinophils (Bld) [#/Vol]0.3 10*3/uLGreene Memorial HospitalEosinophils/100 WBC (Bld)3.3 %[facility] HospitalErythrocyte distribution width (RBC) [Ratio]13.2 %11.5 - 15.0 %[facility] HospitalHematocrit (Bld) [Volume fraction]32.5 %Low39 - 49 %[facility] HospitalHemoglobin (Bld) [Mass/Vol] 11.0 g/dLLow13.0 - 17.0 g/dLGreene Memorial HospitalInterpretation and review of laboratory resultsAbnormalGreene Memorial HospitalLymphocytes (Bld) [#/Vol]1.2 10*3/uLGreene Memorial HospitalLymphocytes/100 WBC (Bld)13.7 %[facility] HospitalH (RBC) [Entitic mass]33.5 pg27 - 34 pgPClinton Memorial HospitalMCHC (RBC) [Mass/Vol]34.0 g/dL32 - 36 g/dLMarietta Memorial HospitalV (RBC) [Entitic vol]99 fL80 - 100 [facility] SystemMonocytes (Bld) [#/Vol]0.8 10*3/uLGreene Memorial HospitalMonocytes/100 WBC (Bld)9.1 %[facility] HospitalNeutrophils (Bld) [#/Vol]6.6 10*3/uLGreene Memorial HospitalNeutrophils/100 WBC (Bld)73.4 % [facility] HospitalPlatelet mean volume (Bld) [Entitic vol]7.7 fL7 - 12 fL [facility] HospitalPlatelets (Bld) [#/Vol]232 10*3/uLBrown Memorial Hospital System RBC (Bld) [#/Vol]3.29 10*6/uLLowGreene Memorial HospitalWBC corrected for nucl RBC Auto (Bld) [#/Vol]9.0[facility] UPMCMagnesium on 61-39-7691Fhgxmaebd [Mass/Vol]2.0 mg/dL1.8 - 2.6 mg/dLGre[facility] Magnesium [Mass/Vol]1.8 mg/dL1.8 - 2.6 mg/dLGreene Memorial HospitalNo Panel Informationon 61-64-7389BdbSqkoso Health SystemInterpretation and review of laboratory resultsAbnormalSelect [facility] Phosphate [Mass/Vol]on 62-06-2507Dqoznywzvoasvj and review of laboratory results AbnormalGreene Memorial HospitalPhosphoruson 94-34-3725Mhedakbdi [Mass/Vol]2.0 mg/dLLow2.4 - 4.9 mg/dLGreene Memorial HospitalPhosphate [Mass/Vol]1.6 mg/dLLow 2.4 - 4.9 mg/dLGreene Memorial HospitalBasic Metabolic Panelon 45-64-1613Asvzp gap [Moles/Vol]7 mmol/L5 - 15 mmol/[facility] SystemCalcium [Mass/Vol]7.8 mg/dLLow8.5 - 10.5 mg/dLGreene Memorial HospitalChloride [Moles/Vol]111 mmol/L High98 - 109 mmol/[facility] SystemCO2 [Moles/Vol]28 mmol/L22 - 32 mmol/L [facility] HospitalCreatinine [Mass/Vol]0.60 mg/dL0.60 - 1.30 mg/dLGreene Memorial HospitaleGFR (CKD-EPI)non-race dependent- PINEastern [facility] State Hospital Glucose [Mass/Vol]106 mg/kURogo23 - 99 mg/dLBrown Memorial [facility] System Interpretation and review of laboratory resultsAbnoUNC Health Chatham Potassium [Moles/Vol]4.5 mmol/L3.5 - 5.0 mmol/LProMedica Health SystemSodium [Moles/Vol]146 mmol/L134 - 146 mmol/LPrUC Medical CenterUrea nitrogen [Mass/Vol]17 mg/dL5 - 27 mg/dLGreene Memorial HospitalCBC auto differentialon 22-70-5038Rguvhoqiz (Bld) [#/Vol]0.0 10*3/uLGreene Memorial HospitalBasophils/100 WBC (Bld)0.5 %[facility] HospitalEosinophils (Bld) [#/Vol]0.3 10*3/uL [facility] HospitalEosinophils/100 WBC (Bld)4.2 %[facility] Erythrocyte distribution width (RBC) [Ratio]13.5 %11.5 - 15.0 %[facility] HospitalHematocrit (Bld) [Volume fraction]31.9 %Low39 - 49 %[facility] HospitalHemoglobin (Bld) [Mass/Vol]10.9 g/dLLow13.0 - 17.0 g/dLGreene Memorial HospitalInterpretation and review of laboratory resultsAbnormalGreene Memorial HospitalLymphocytes (Bld) [#/Vol]1.2 10*3/[facility] HospitalLymphocytes/100 WBC (Bld)15.4 %[facility] HospitalMCH (RBC) [Entitic mass]33.1 pg27 - 34 pg [facility] HospitalMCHC (RBC) [Mass/Vol]34.0 g/dL32 - 36 g/dLGreene Memorial HospitalMCV (RBC) [Entitic vol]97 fL80 - 100 [facility] Monocytes (Bld) [#/Vol]0.6 10*3/uLGreene Memorial HospitalMonocytes/100 WBC (Bld) 8.4 %[facility] HospitalNeutrophils (Bld) [#/Vol]5.4 10*3/uLGreene Memorial HospitalNeutrophils/100 WBC (Bld)71.5 %[facility] HospitalPlatelet mean volume (Bld) [Entitic vol]7.6 fL7 - 12 [facility] SystemPlatelets (Bld) [#/Vol]173 10*3/uLGreene Memorial HospitalRBC (Bld) [#/Vol]3.28 10*6/uLLow [facility] HospitalWBC corrected for nucl RBC Auto (Bld) [#/Vol]7.5PLankenau Medical CenterIonized calciumon 76-11-7205Ryccjqv.ionized (Bld) [Mass/Vol]4.9 mg/dL4.5 - 5.3 mg/dLGreene Memorial HospitalIonized magnesiumon 33-43-4421Csfggband Ionized ISE (Bld) [Moles/Vol]0.71 mmol/L0.45 - 0.74 mmol/LPrUC Medical CenterLevetiracetam levelon 29-90-9596hadYLBMVogcnr [Mass/Vol]See BelowGreene Memorial HospitalMagnesiumon 89-12-8387Vzjppiwln [Mass/Vol]1.8 mg/dL1.8 - 2.6 mg/dLGreene Memorial HospitalNo Panel Informationon 38-76-0507AtsJlgqxvLankenau Medical CenterPhosphate [Mass/Vol]on 83-05-5567Necyevhynjurfv and review of laboratory resultsAbnormalSelect Specialty Hospital [facility] UPMCPhosphoruson 97-79-1287Nnnnkspne [Mass/Vol] mg/dLCritically low2.4 - 4.9 mg/dLRegional [facility] Center videography Hypopharynx and Esophagus Viewson 42-94-1788SDSCKZQGTSCndIanzae Health System Radiology Study observation (narrative)[facility] videography Hypopharynx and Esophagus ViewsOrdered By: Silviano Nelson on 98-61-2248MjwDavrucClinton Memorial Hospital Work Phone: levETIRAcetam [Mass/Vol]on 95-55-6236HekAsrwddClinton Memorial HospitalBasic Metabolic Panelon 99-20-2453Tiwrl gap [Moles/Vol]6 mmol/L5 - 15 mmol/LPrUC Medical CenterCalcium [Mass/Vol]7.7 mg/dLLow8.5 - 10.5 mg/dL [facility] HospitalChloride [Moles/Vol]111 mmol/LHigh98 - 109 mmol/L [facility] HospitalCO2 [Moles/Vol]27 mmol/L22 - 32 mmol/LProMedica Health SystemCreatinine [Mass/Vol]0.67 mg/dL0.60 - 1.30 mg/dLGre[facility] eGFR (CKD-EPI)non-race dependent- PINEastern Missouri State HospitalGlucose [Mass/Vol] 124 mg/dQNrtg97 - 99 mg/dLGreene Memorial HospitalPotassium [Moles/Vol]4.1 mmol/L 3.5 - 5.0 mmol/[facility] SystemSodium [Moles/Vol]144 mmol/L134 - 146 mmol/[facility] CenterUrea nitrogen [Mass/Vol]11 mg/dL5 - 27 mg/dL [facility] auto differentialon 07-64-5403Xacktotdp (Bld) [#/Vol] 0.0 10*3/uLGreene Memorial HospitalBasophils/100 WBC (Bld)0.3 %[facility] HospitalEosinophils (Bld) [#/Vol]0.2 10*3/uLGreene Memorial HospitalEosinophils/100 WBC (Bld)1.6 %[facility] HospitalErythrocyte distribution width (RBC) [Ratio]13.2 %11.5 - 15.0 %[facility] HospitalHematocrit (Bld) [Volume fraction]30.8 %Low39 - 49 %[facility] HospitalHemoglobin (Bld) [Mass/Vol] 10.7 g/dLLow13.0 - 17.0 g/dLGreene Memorial HospitalInterpretation and review of laboratory resultsAbnormalGreene Memorial HospitalLymphocytes (Bld) [#/Vol]1.2 10*3/uLGreene Memorial HospitalLymphocytes/100 WBC (Bld)11.7 %[facility] HospitalH (RBC) [Entitic mass]34.1 stBkbg72 - 34 [facility] HospitalMCHC (RBC) [Mass/Vol]34.6 g/dL32 - 36 g/dLMarietta Memorial HospitalV (RBC) [Entitic vol]99 fL80 - 100 [facility] SystemMonocytes (Bld) [#/Vol]0.6 10*3/uL [facility] HospitalMonocytes/100 WBC (Bld)6.1 %[facility] Neutrophils (Bld) [#/Vol]8.4 10*3/uLHighGreene Memorial HospitalNeutrophils/100 WBC (Bld)80.3 %[facility] HospitalPlatelet mean volume (Bld) [Entitic vol] 7.4 fL7 - 12 fLPMiami Valley Hospital SystemPlatelets (Bld) [#/Vol]140 10*3/uLLow [facility] SystemRBC (Bld) [#/Vol]3.13 10*6/uLLowGreene Memorial Hospital WBC corrected for nucl RBC Auto (Bld) [#/Vol]10.4[facility] SystemMagnesiumon 02-29-3427Ntbefwonv [Mass/Vol]2.1 mg/dL1.8 - 2.6 mg/dLGreene Memorial HospitalMagnesium [Mass/Vol]1.7 mg/dLLow1.8 - 2.6 mg/dL [facility] HospitalMagnesium [Mass/Vol]on 79-55-3263XzxQvcghhClinton Memorial Hospital No Panel Informationon 26-66-8363Idhcrjpxrikiqq and review of laboratory results AbnormalSelect [facility] UPMCBasic Metabolic Panelon 99-24-1580Gcplr gap [Moles/Vol]7 mmol/L5 - 15 mmol/LPrCentennial Peaks Hospital Health System Calcium [Mass/Vol]8.1 mg/dLLow8.5 - 10.5 mg/dLBrown Memorial Hospital SystemChloride [Moles/Vol]108 mmol/L98 - 109 mmol/LPrCentennial Peaks Hospital Health SystemCO2 [Moles/Vol]25 mmol/L22 - 32 mmol/FirstHealthoMedgrove hill [facility] hospital Health SystemCreatinine [Mass/Vol]0.69 mg/dL0.60 - 1.30 mg/dLGreene Memorial HospitaleGFR (CKD-EPI)non-race dependent- PINF [facility] HospitalGlucose [Mass/Vol]123 mg/cDOhvx79 - 99 mg/dLGreene Memorial HospitalPotassium [Moles/Vol]3.6 mmol/L3.5 - 5.0 mmol/LProMedica Health SystemSodium [Moles/Vol]140 mmol/L134 - 146 mmol/LProMedica Health SystemUrea nitrogen [Mass/Vol]8 mg/dL5 - 27 mg/dLTrumbull Memorial HospitalC auto differentialon 63-00-8852Mtolcgssq (Bld) [#/Vol]0.0 10*3/uLGreene Memorial HospitalBasophils/100 WBC (Bld)0.2 %[facility] HospitalEosinophils (Bld) [#/Vol]0.1 10*3/uLGreene Memorial HospitalEosinophils/100 WBC (Bld)0.9 %[facility] HospitalErythrocyte distribution width (RBC) [Ratio]13.1 %11.5 - 15.0 % [facility] HospitalHematocrit (Bld) [Volume fraction]32.4 %Low39 - 49 % [facility] HospitalHemoglobin (Bld) [Mass/Vol]11.2 g/dLLow13.0 - 17.0 g/dL [facility] HospitalInterpretation and review of laboratory resultsAbnormal [facility] HospitalLymphocytes (Bld) [#/Vol]0.9 10*3/[facility] HospitalLymphocytes/100 WBC (Bld)10.1 %[facility] HospitalMCH (RBC) [Entitic mass]33.4 pg27 - 34 [facility] HospitalMCHC (RBC) [Mass/Vol]34.6 g/dL32 - 36 g/dLGreene Memorial HospitalMCV (RBC) [Entitic vol]97 fL80 - 100 [facility] SystemMonocytes (Bld) [#/Vol]0.7 10*3/[facility] Monocytes/100 WBC (Bld)7.5 %[facility] HospitalNeutrophils (Bld) [#/Vol]7.5 10*3/[facility] HospitalNeutrophils/100 WBC (Bld)81.3 %[facility] HospitalPlatelet mean volume (Bld) [Entitic vol]7.4 fL7 - 12 [facility] SystemPlatelets (Bld) [#/Vol]152 10*3/[facility] HospitalRBC (Bld) [#/Vol]3.35 10*6/[facility] HospitalWBC corrected for nucl RBC Auto (Bld) [#/Vol]9.2PLankenau Medical CenterMagnesiumon 89-16-5193Ijjsuqlrr [Mass/Vol]2.0 mg/dL1.8 - 2.6 mg/dLGre[facility] Magnesium [Mass/Vol]1.7 mg/dLLow1.8 - 2.6 mg/dLGreene Memorial HospitalMagnesium [Mass/Vol]on 27-66-2875HtqVddztiClinton Memorial HospitalNo Panel Informationon 04-14-2023 Interpretation and review of laboratory resultsAbnormEncompass Health Rehabilitation Hospital of SewickleyBasic Metabolic Panelon 45-27-5639Bfrey gap [Moles/Vol]7 mmol/L5 - 15 mmol/[facility] Health SystemCalcium [Mass/Vol]8.0 mg/dLLow8.5 - 10.5 mg/dLGreene Memorial HospitalChloride [Moles/Vol]110 mmol/LHigh98 - 109 mmol/[facility] Health SystemCO2 [Moles/Vol]27 mmol/L22 - 32 mmol/[facility] SystemCreatinine [Mass/Vol]0.60 mg/dL0.60 - 1.30 mg/dLGreene Memorial HospitaleGFR (CKD-EPI)non-race dependent- PINEastern Missouri State HospitalGlucose [Mass/Vol]95 mg/dL65 - 99 mg/dLGreene Memorial HospitalPotassium [Moles/Vol]3.6 mmol/L3.5 - 5.0 mmol/[facility] Health SystemSodium [Moles/Vol]144 mmol/L134 - 146 mmol/[facility] SystemUrea nitrogen [Mass/Vol]10 mg/dL5 - 27 mg/dL [facility] HospitalCB auto differentialon 53-00-4452Qzoymomvm (Bld) [#/Vol] 0.0 10*3/[facility] HospitalBasophils/100 WBC (Bld)0.8 %[facility] HospitalEosinophils (Bld) [#/Vol]0.2 10*3/uLGreene Memorial HospitalEosinophils/100 WBC (Bld)4.7 %[facility] SystemErythrocyte distribution width (RBC) [Ratio]13.1 %11.5 - 15.0 %[facility] HospitalHematocrit (Bld) [Volume fraction]30.9 %Low39 - 49 %[facility] HospitalHemoglobin (Bld) [Mass/Vol] 10.6 g/dLLow13.0 - 17.0 g/dLGreene Memorial HospitalInterpretation and review of laboratory resultsAbnoUNC Health ChathamLymphocytes (Bld) [#/Vol]1.2 10*3/uLGreene Memorial HospitalLymphocytes/100 WBC (Bld)29.1 %[facility] HospitalH (RBC) [Entitic mass]33.2 pg27 - 34 [facility] HospitalMCHC (RBC) [Mass/Vol]34.2 g/dL32 - 36 g/dLGreene Memorial HospitalMCV (RBC) [Entitic vol]97 fL80 - 100 [facility] SystemMonocytes (Bld) [#/Vol]0.5 10*3/[facility] HospitalMonocytes/100 WBC (Bld)10.8 %[facility] HospitalNeutrophils (Bld) [#/Vol]2.4 10*3/[facility] HospitalNeutrophils/100 WBC (Bld)54.6 % [facility] HospitalPlatelet mean volume (Bld) [Entitic vol]7.6 fL7 - 12 fL [facility] HospitalPlatelets (Bld) [#/Vol]136 10*3/[facility] HospitalRBC (Bld) [#/Vol]3.18 10*6/[facility] HospitalWBC corrected for nucl RBC Auto (Bld) [#/Vol]4.3PLankenau Medical Center Magnesiumon 46-55-6358Odteovyjx [Mass/Vol]1.6 mg/dLLow1.8 - 2.6 mg/dLGreene Memorial HospitalNo Panel Informationon 56-49-9260Fqozmxbioeqoht and review of laboratory resultsAbnormalSelect Specialty Hospital [facility] [place] UPMCPlatelet counton 49-41-8068Dpwiaqgyizjusq and review of laboratory resultsAbnormal [facility] SystemPlatelet mean volume (Bld) [Entitic vol]7.2 fL7 - 12 fL [facility] Health SystemPlatelets (Bld) [#/Vol]149 10*3/uLLowSelect Specialty Hospital - [place] UPMCProtime & INRon 35-67-9810UXC Coag (PPP) [Relative time]1.2 {INR}HighGreene Memorial HospitalInterpretation and review of laboratory resultsAbnormalGreene Memorial HospitalPT Coag (PPP) [Time]14.0 sHigDepartment of Veterans Affairs Medical Center-PhiladelphiaXR Abdomen APon 82-63-7405SSCPZMZUBQ [facility] HospitalRadiology Study observation (narrative)[facility] HospitalXR Abdomen APOrdered By: Onel Pulido on 91-08-3509IqbIknvrqClinton Memorial Hospital Work Phone: Basic Metabolic Panelon 16-24-1647Ctdks gap [Moles/Vol]10 mmol/L5 - 15 mmol/[facility] SystemCalcium [Mass/Vol]8.5 mg/dL8.5 - 10.5 mg/dLGreene Memorial HospitalChloride [Moles/Vol]112 mmol/LHigh98 - 109 mmol/[facility] Clubica Health SystemCO2 [Moles/Vol]23 mmol/L22 - 32 mmol/L [facility] HospitalCreatinine [Mass/Vol]0.71 mg/dL0.60 - 1.30 mg/dLGreene Memorial HospitaleGFR (CKD-EPI)non-race dependent- PINEastern [facility] State Hospital Glucose [Mass/Vol]81 mg/dL65 - 99 mg/dLBrown [facility] Hospital SystemPotassium [Moles/Vol]3.9 mmol/L3.5 - 5.0 mmol/LProMedgrove hill memorial hospital Health SystemSodium [Moles/Vol] 145 mmol/L134 - 146 mmol/FirstHealthoMedica Health SystemUrea nitrogen [Mass/Vol]17 mg/dL5 - 27 mg/dLGreene Memorial HospitalCBC auto differentialon 04-12-2023 Basophils (Bld) [#/Vol]0.0 10*3/uLGreene Memorial HospitalBasophils/100 WBC (Bld) 0.6 %[facility] HospitalEosinophils (Bld) [#/Vol]0.2 10*3/[facility] HospitalEosinophils/100 WBC (Bld)3.5 %[facility] HospitalErythrocyte distribution width (RBC) [Ratio]13.1 %11.5 - 15.0 %[facility] Hematocrit (Bld) [Volume fraction]31.1 %Low39 - 49 %[facility] Hemoglobin (Bld) [Mass/Vol]10.7 g/dLLow13.0 - 17.0 g/dLGre[facility] Hospital Interpretation and review of laboratory resultsAbnormAvita Health [facility] Lymphocytes (Bld) [#/Vol]1.1 10*3/[facility] HospitalLymphocytes/100 WBC (Bld)22.7 %[facility] HospitalMCH (RBC) [Entitic mass]33.8 pg27 - 34 pg [facility] HospitalMCHC (RBC) [Mass/Vol]34.6 g/dL32 - 36 g/dLGreene Memorial HospitalMCV (RBC) [Entitic vol]98 fL80 - 100 [facility] Monocytes (Bld) [#/Vol]0.6 10*3/[facility] HospitalMonocytes/100 WBC (Bld) 11.5 %[facility] HospitalNeutrophils (Bld) [#/Vol]3.0 10*3/[facility] HospitalNeutrophils/100 WBC (Bld)61.7 %[facility] HospitalPlatelet mean volume (Bld) [Entitic vol]7.1 fL7 - 12 [facility] SystemPlatelets (Bld) [#/Vol]132 10*3/uLLowGreene Memorial HospitalRBC (Bld) [#/Vol]3.18 10*6/uLLow [facility] HospitalWBC corrected for nucl RBC Auto (Bld) [#/Vol]4.9[facility] UPMCCardiac echo study ProcedureOrdered By: Miguelito Perkins on 53-17-8869VS pressure 1/2 dmzn0112 [facility] Work Phone: Aortic root4.00 [facility] Work Phone: AV mean gradient3.00mmHgNorth Country HospitalGridNetworks Work Phone: AV peak gradient6.66mmHgNorth Country HospitalGridNetworks Work Phone: AV peak ovl021.00 cm/sPrPolyplex Work Phone: AV valve area3.18 ca8ZewJsjkpgGridNetworks Work Phone: AV Velocity Ratio0.84North [facility] HospitalGridNetworks Work Phone: AV VTI35.30 [facility]oAcc[facility] Work Phone: E wave deceleration uyuw036.00msecNorth Country HospitalGridNetworks Work Phone: E/A ratio0.81[facility] HospitalGridNetworks Work Phone: Echo EF Dbvsptdpd09 %[employer] Work Phone: KE33 %[facility] HospitalQR Wild Work Phone: Energy loss index2.25North Country HospitalGridNetworks Work Phone: Est. RA yksbcxyr5oaChUrsFhmovc Health System Work Phone: HM54 %28 - 44 %[employer] Work Phone: Interventricular Septum Diastolic Thickness by 2D11 cm [facility] HospitalQR Wild Work Phone: EEG9.10 cm0.6 - 1.1 [facility]oAcc[facility] Media Work Phone: LA size4.20 [facility]oAcc[facility] Work Phone: LA Volume Index32.0 mL/a7TjbQyoaplGridNetworks Work Phone: Left Ventricle [id number] [facility] InstitutePolyplex Work Phone: LV Diastolic Bqbmae79.20 [facility] HospitalGridNetworks Work Phone: LV ESV A2C68.70 mLSongAfter Work Phone: LV ESV A4C63.80 [employer] Work Phone: LV RWT 2D42.31PSurgical Specialty CenterBamatea Work Phone: [phone] Systolic Ypqgal22.70 mLNorth Country HospitalGridNetworks Work Phone: [phone] cm4.49 - 6.23 [facility]oAcc[facility] Work Phone: [phone] cm2.65 - 4.01 [facility]oAcc[facility] Work Phone: [phone] diameter2.20 [facility]oAcc[facility] Work Phone: [phone] peak vel1.18 m/[employer] Work Phone: [phone] peak VTI29.50 [facility] SystemBamatea Work Phone: [phone] stroke ntajaa636.14 mlNorth Country HospitalGridNetworks Work Phone: [phone] Peak A Vel74.40 cm/[employer] Work Phone: [phone] Peak E Vel60.20 cm/[employer] Work Phone: MV pressure 1/2 tiyb363.00 [facility] CenterAccelerize [facility] Media Work Phone: [phone] TDI E' (medial)8.59 cm/[employer] Work Phone: MV valve area p 1/2 method1.64 ox8CdzZkwejhGridNetworks Work Phone: GK1.10 cm0.6 - 1.1 [facility]oAcc[facility] Work Phone: [phone] Peak Systolic Amlbjecq17elCdVhfNczevi Health System Work Phone: [phone] [facility]oAcc[facility] Work Phone: [phone] cm/[employer] Work Phone: [phone] peak khebifks80.81mmHgNorth Country HospitalGridNetworks Work Phone: [phone] Peak Vel2.7 m/[employer] Work Phone: Valve area - Index1.6[facility] HospitalMedica Health System Work Phone: [phone]-5.17[facility] HospitalB[facility] Work Phone: [phone]-0.40[facility] [employer]unity [facility] Work Phone: [facility] Attunity [facility] Work Phone: Cardiac echo study Procedureon 18-68-4104SERECBB Radiology Study observation (narrative)[facility] HospitalMagnesiumon 04-88-0310Rsbznadft [Mass/Vol]1.8 mg/dL1.8 - 2.6 mg/dLGre[facility] Magnesium [Mass/Vol]1.6 mg/dLLow1.8 - 2.6 mg/dLGreene Memorial HospitalMagnesium [Mass/Vol]on 77-95-0927UooMocrxmClinton Memorial HospitalNo Panel Informationon 04-12-2023 Interpretation and review of laboratory resultsAbnormalAurora Medical Center– [facility] Attunity [facility] HospitalRF videography Hypopharynx and Esophagus Viewson 65-77-1415CXTYIIKIDXXmuDkjruo Health SystemRadiology Study observation (narrative)[facility] HospitalGraphite Systems [facility] HospitalRF videography Hypopharynx and Esophagus Views Ordered By: Irwin Rivera on 58-80-9197HxcPdgwvx [facility] Work Phone: XR Chest Single viewon 90-68-1841BXXXDEGKDGMklItphohKindred Hospital at RahwayRadiology Study observation (narrative)[facility] HospitalGraphite Systems [facility] HospitalXR Chest Single viewOrdered By: Yolanda Alejandre on 47-62-6001LxrMjsvgoClinton Memorial Hospital Work Phone: Basic Metabolic Panelon 89-85-0830Opnal gap [Moles/Vol]9 mmol/L5 - 15 mmol/LPrLee's Summit Hospitalica Health SystemCalcium [Mass/Vol]8.5 mg/dL8.5 - 10.5 mg/dLBrown Memorial Hospital SystemChloride [Moles/Vol]112 mmol/LHigh98 - 109 mmol/LProMedica Health SystemCO2 [Moles/Vol]24 mmol/L22 - 32 mmol/L [facility] HospitalCreatinine [Mass/Vol]0.68 mg/dL0.60 - 1.30 mg/dLGreene Memorial HospitaleGFR (CKD-EPI)non-race dependent- PINFProMedica Health System Glucose [Mass/Vol]80 mg/dL65 - 99 mg/dLGreene Memorial HospitalPotassium [Moles/Vol]4.0 mmol/L3.5 - 5.0 mmol/LPrMercy Health Allen Hospital SystemSodium [Moles/Vol] 145 mmol/L134 - 146 mmol/[facility] CenterUrea nitrogen [Mass/Vol]14 mg/dL5 - 27 mg/dLGreene Memorial HospitalCBC auto differentialon 04-11-2023 Basophils (Bld) [#/Vol]0.0 10*3/uLGreene Memorial HospitalBasophils/100 WBC (Bld) 0.5 %[facility] HospitalEosinophils (Bld) [#/Vol]0.1 10*3/uLGreene Memorial HospitalEosinophils/100 WBC (Bld)1.6 %[facility] HospitalErythrocyte distribution width (RBC) [Ratio]13.1 %11.5 - 15.0 %[facility] Hematocrit (Bld) [Volume fraction]30.5 %Low39 - 49 %[facility] Hemoglobin (Bld) [Mass/Vol]10.1 g/dLLow13.0 - 17.0 g/dLGre[facility] Hospital Interpretation and review of laboratory resultsAbnormAvita Health System [facility] Lymphocytes (Bld) [#/Vol]0.9 10*3/uLLowGreene Memorial HospitalLymphocytes/100 WBC (Bld)16.2 %[facility] HospitalH (RBC) [Entitic mass]32.9 pg27 - 34 pg [facility] HospitalMCHC (RBC) [Mass/Vol]33.2 g/dL32 - 36 g/dLGreene Memorial HospitalMCV (RBC) [Entitic vol]99 fL80 - 100 [facility] Monocytes (Bld) [#/Vol]0.4 10*3/uLGreene Memorial HospitalMonocytes/100 WBC (Bld) 7.9 %[facility] HospitalNeutrophils (Bld) [#/Vol]4.1 10*3/uLGreene Memorial HospitalNeutrophils/100 WBC (Bld)73.8 %[facility] Health SystemPlatelet mean volume (Bld) [Entitic vol]7.1 fL7 - 12 [facility] SystemPlatelets (Bld) [#/Vol]118 10*3/uLLowProUniversity Hospitals Elyria Medical Center SystemRBC (Bld) [#/Vol]3.08 10*6/uLLow [facility] HospitalWBC corrected for nucl RBC Auto (Bld) [#/Vol]5.6[facility] UPMCECG 12 leadon 67-08-6823QGJPUTRQFOAMDR [facility] HospitalMagnesiumon 68-24-3385Zzuludaan [Mass/Vol]2.2 mg/dL1.8 - 2.6 mg/dLGreene Memorial HospitalMagnesium [Mass/Vol]1.6 mg/dLLow1.8 - 2.6 mg/dL [facility] HospitalMagnesium [Mass/Vol]on 30-09-4945OwlVhmnacClinton Memorial Hospital No Panel Informationon 92-02-6433Vgmeqqlwfxqsox and review of laboratory results AbnormalProGuthrie Robert Packer HospitalBasic Metabolic Panelon 20-34-9998Kgsyb gap [Moles/Vol]10 mmol/L5 - 15 mmol/LProMedica Health System Calcium [Mass/Vol]8.5 mg/dL8.5 - 10.5 mg/dLGreene Memorial HospitalChloride [Moles/Vol]110 mmol/LHigh98 - 109 mmol/LProMedica Health SystemCO2 [Moles/Vol]24 mmol/L22 - 32 mmol/LProMedica Health SystemCreatinine [Mass/Vol]0.68 mg/dL0.60 - 1.30 mg/dLGreene Memorial HospitaleGFR (CKD-EPI)non-race dependent- PINF [facility] HospitalGlucose [Mass/Vol]77 mg/dL65 - 99 mg/dLGreene Memorial HospitalInterpretation and review of laboratory resultsAbnormalGreene Memorial HospitalPotassium [Moles/Vol]4.0 mmol/L3.5 - 5.0 mmol/LProMedica Health System Sodium [Moles/Vol]144 mmol/L134 - 146 mmol/LProMedica Health SystemUrea nitrogen [Mass/Vol]17 mg/dL5 - 27 mg/dLGreene Memorial HospitalCBC auto differentialon 32-34-7986Mlawjahpu (Bld) [#/Vol]0.0 10*3/uLGreene Memorial HospitalBasophils/100 WBC (Bld)0.4 %[facility] HospitalEosinophils (Bld) [#/Vol]0.0 10*3/uL [facility] HospitalEosinophils/100 WBC (Bld)0.5 %[facility] Erythrocyte distribution width (RBC) [Ratio]13.3 %11.5 - 15.0 %[facility] HospitalHematocrit (Bld) [Volume fraction]31.2 %Low39 - 49 %[facility] HospitalHemoglobin (Bld) [Mass/Vol]10.8 g/dLLow13.0 - 17.0 g/dLGreene Memorial HospitalInterpretation and review of laboratory resultsAbnormalGreene Memorial HospitalLymphocytes (Bld) [#/Vol]1.2 10*3/uLGreene Memorial HospitalLymphocytes/100 WBC (Bld)15.1 %[facility] HospitalMCH (RBC) [Entitic mass]33.6 pg27 - 34 pg [facility] HospitalMCHC (RBC) [Mass/Vol]34.5 g/dL32 - 36 g/dLGreene Memorial HospitalMCV (RBC) [Entitic vol]97 fL80 - 100 [facility] Monocytes (Bld) [#/Vol]0.6 10*3/uLGreene Memorial HospitalMonocytes/100 WBC (Bld) 7.7 %[facility] HospitalNeutrophils (Bld) [#/Vol]6.0 10*3/uLGreene Memorial HospitalNeutrophils/100 WBC (Bld)76.3 %[facility] HospitalPlatelet mean volume (Bld) [Entitic vol]7.2 fL7 - 12 [facility] SystemPlatelets (Bld) [#/Vol]148 10*3/uLLowGreene Memorial HospitalRBC (Bld) [#/Vol]3.21 10*6/uLLow [facility] HospitalWBC corrected for nucl RBC Auto (Bld) [#/Vol]7.8[facility] HospitalProUniversity Hospitals [facility] SystemMagnesiumon 79-11-4140Nznrinmxy [Mass/Vol] 1.9 mg/dL1.8 - 2.6 mg/dLGreene Memorial HospitalNo Panel Informationon 04-10-2023 [facility] HospitalPhosphoruson 05-40-5097Uxpqiopxh [Mass/Vol]2.8 mg/dL2.4 - 4.9 mg/dLGreene Memorial HospitalRF Small bowel Views W contrast Lexie 04-10-2023 SECTRAThe [facility] Hospital of Salem CountyRadiology Study observation (narrative) [facility] HospitalRF Small bowel Views W contrast POOrdered By: Stevie Landa on 71-31-1226TrbXnsnrhClinton Memorial Hospital Work Phone: XR Chest Single viewon [id number]snf Health SystemRadiology Study observation (narrative)[facility] HospitalXR Chest Single viewOrdered By: Irwin oHu on 14-52-2684DsxDyjmkiClinton Memorial Hospital Work Phone: APTTon 55-14-4722vXSL Coag (PPP) [Time]29 [facility], BeachwoodBasic Metabolic Panelon 12-14-4200Lklxv gap [Moles/Vol]10 mmol/L5 - 15 mmol/[facility] SystemCalcium [Mass/Vol]8.4 mg/dLLow8.5 - 10.5 mg/dL [facility] HospitalChloride [Moles/Vol]110 mmol/LHigh98 - 109 mmol/L [facility] HospitalCO2 [Moles/Vol]25 mmol/L22 - 32 mmol/[facility] SystemCreatinine [Mass/Vol]0.78 mg/dL0.60 - 1.30 mg/dLGre[facility] eGFR (CKD-EPI)non-race dependent- PINEastern Missouri State HospitalGlucose [Mass/Vol] 76 mg/dL65 - 99 mg/dLGre[facility] Memorial HospitalPotassium [Moles/Vol]4.0 mmol/L3.5 - 5.0 mmol/LProMedica Health SystemSodium [Moles/Vol]145 mmol/L134 - 146 mmol/L [facility] HospitalUrea nitrogen [Mass/Vol]19 mg/dL5 - 27 mg/dLGreene Memorial HospitalCBC auto differentialon 47-01-3872Wrakewuut (Bld) [#/Vol]0.0 10*3/[facility] HospitalBasophils/100 WBC (Bld)0.3 %[facility] HospitalEosinophils (Bld) [#/Vol]0.1 10*3/uLGreene Memorial HospitalEosinophils/100 WBC (Bld)1.2 %[facility] HospitalErythrocyte distribution width (RBC) [Ratio]13.4 %11.5 - 15.0 %[facility] HospitalHematocrit (Bld) [Volume fraction]32.0 %Low39 - 49 %[facility] HospitalHemoglobin (Bld) [Mass/Vol] 10.9 g/dLLow13.0 - 17.0 g/dLGre[facility] Memorial HospitalInterpretation and review of laboratory resultsAbnormalGreene Memorial HospitalLymphocytes (Bld) [#/Vol]1.4 10*3/[facility] HospitalLymphocytes/100 WBC (Bld)17.9 %[facility] HospitalMCH (RBC) [Entitic mass]33.4 pg27 - 34 [facility] HospitalMCHC (RBC) [Mass/Vol]33.9 g/dL32 - 36 g/dLGreene Memorial HospitalMCV (RBC) [Entitic vol]99 fL80 - 100 [facility] SystemMonocytes (Bld) [#/Vol]0.5 10*3/[facility] HospitalMonocytes/100 WBC (Bld)6.5 %[facility] HospitalNeutrophils (Bld) [#/Vol]5.7 10*3/[facility] HospitalNeutrophils/100 WBC (Bld)74.1 % [facility] HospitalPlatelet mean volume (Bld) [Entitic vol]7.2 fL7 - 12 fL [facility] HospitalPlatelets (Bld) [#/Vol]153 10*3/[facility] RBC (Bld) [#/Vol]3.25 10*6/[facility] HospitalWBC corrected for nucl RBC Auto (Bld) [#/Vol]7.8[facility] UPMCCobalamin (Vitamin B12) [Mass/Vol]on 23-94-6258Mixetwtqcffjwm and review of laboratory resultsAbnormalSelect Specialty Hospital [facility] UPMCFerritinon 33-42-5785Asyyrijj [Mass/Vol]72 ng/mL24 - 336 ng/mLGre[facility] Ferritin [Mass/Vol]on 21-34-6182YyrCjizheClinton Memorial HospitalFolateon 40-43-7332Opfjaj [Mass/Vol]ng/mL5.8 - PINF ng/mLGreene Memorial HospitalFolate [Mass/Vol]on 37-86-5461GwzLoiwniClinton Memorial HospitalIron and TIBCon 51-49-6130Agltzmvfipkpcc and review of laboratory resultsAbnoalGreene Memorial HospitalIron [Mass/Vol]35 ug/dLLow50 - 212 ug/dLLakeHealth TriPoint Medical Centern binding capacity [Mass/Vol]190 ug/wJJrc437 - 425 ug/dLLakeHealth TriPoint Medical Centern saturation [Mass fraction]18 LowProGuthrie Robert Packer HospitalMagnesiumon 40-81-0425Pvorkwbgd [Mass/Vol]2.3 mg/dL1.8 - 2.6 mg/dLGreene Memorial HospitalMagnesium [Mass/Vol]1.5 mg/dLLow1.8 - 2.6 mg/dLGreene Memorial HospitalNo Panel Informationon 04-09-2023 ProMCrystal Clinic Orthopedic CenterInterpretation and review of laboratory resultsAbnormal [facility] UPMCPhosphoruson 38-43-3883Qljzsmwzz [Mass/Vol]3.1 mg/dL2.4 - 4.9 mg/dLGre[facility] Memorial HospitalPhosphate [Mass/Vol]2.3 mg/dLLow2.4 - 4.9 mg/dLGre[facility] Memorial HospitalThyroid profile includes TSH FT4 on 56-04-9353Lmyg T4 [Mass/Vol]0.87 ng/dL0.61 - 1.60 ng/dLGreene Memorial HospitalTSH Qn1.03 m[IU]/LProMedHaven Behavioral Hospital of Eastern PennsylvaniaVitamin B12on 67-42-8906Ldaybxamv (Vitamin B12) [Mass/Vol]157 pg/qWHpg587 - 914 pg/mL [facility] HospitalaPTT Coag (PPP) [Time]on 84-63-6100ZcbQgnvzcClinton Memorial HospitalCBC auto differentialon 92-59-6443Olrkufxde (Bld) [#/Vol]0.1 10*3/uL [facility] HospitalBasophils/100 WBC (Bld)0.5 %[facility] Eosinophils (Bld) [#/Vol]0.1 10*3/uLGreene Memorial HospitalEosinophils/100 WBC (Bld)0.9 %[facility] HospitalErythrocyte distribution width (RBC) [Ratio] 13.5 %11.5 - 15.0 %[facility] HospitalHematocrit (Bld) [Volume fraction]37.7 %Low39 - 49 %[facility] HospitalHemoglobin (Bld) [Mass/Vol]12.9 g/dLLow13.0 - 17.0 g/dLGre[facility] Memorial HospitalInterpretation and review of laboratory resultsAbnormalGreene Memorial HospitalLymphocytes (Bld) [#/Vol]3.1 10*3/uL [facility] HospitalLymphocytes/100 WBC (Bld)30.5 %[facility] HospitalMCH (RBC) [Entitic mass]33.3 pg27 - 34 [facility] HospitalMCHC (RBC) [Mass/Vol]34.3 g/dL32 - 36 g/dLGreene Memorial HospitalMCV (RBC) [Entitic vol]97 fL80 - 100 [facility] SystemMonocytes (Bld) [#/Vol]0.9 10*3/uLGreene Memorial HospitalMonocytes/100 WBC (Bld)8.8 %[facility] HospitalNeutrophils (Bld) [#/Vol]6.1 10*3/uLGreene Memorial HospitalNeutrophils/100 WBC (Bld)59.3 % [facility] HospitalPlatelet mean volume (Bld) [Entitic vol]7.3 fL7 - 12 fL [facility] HospitalPlatelets (Bld) [#/Vol]224 10*3/uLGreene Memorial Hospital RBC (Bld) [#/Vol]3.88 10*6/uLLowGreene Memorial HospitalWBC corrected for nucl RBC Auto (Bld) [#/Vol]10.3PLankenau Medical Center Comprehensive metabolic panelon 55-45-3595Hoagfdx [Mass/Vol]4.1 g/dL3.2 - 5.3 g/dLGreene Memorial HospitalALP [Catalytic activity/Vol]128 U/L39 - 130 U/L [facility] HospitalALT No additional P-5'-P [Catalytic activity/Vol]14 U/L0 - 40 U/[facility] CenterAnion gap [Moles/Vol]10 mmol/L5 - 15 mmol/L [facility] HospitalAST [Catalytic activity/Vol]15 U/L0 - 41 U/[facility] CenterBilirubin [Mass/Vol]0.6 mg/dL0.3 - 1.2 mg/dL[facility] Calcium [Mass/Vol]9.1 mg/dL8.5 - 10.5 mg/dLGre[facility] Memorial HospitalChloride [Moles/Vol]104 mmol/L98 - 109 mmol/[facility] SystemCO2 [Moles/Vol]30 mmol/L22 - 32 mmol/[facility] SystemCreatinine [Mass/Vol]1.04 mg/dL0.60 - 1.30 mg/dLGreene Memorial HospitaleGFR (CKD-EPI)non-race fdmvcxtqo67- PINF [facility] HospitalGlucose [Mass/Vol]95 mg/dL65 - 99 mg/dLGre[facility] HospitalPotassium [Moles/Vol]4.1 mmol/L3.5 - 5.0 mmol/[facility] Protein [Mass/Vol]7.1 g/dL6.0 - 8.0 g/dLBrown Memorial Hospital SystemSodium [Moles/Vol]144 mmol/L134 - 146 mmol/[facility] SystemUrea nitrogen [Mass/Vol]19 mg/dL5 - 27 mg/dLSelect [facility] Lactate (P simon) [Moles/Vol]on 72-33-2911UdoUbuarsClinton Memorial HospitalLactate w/ Reflex on 46-32-9653Qxhqfkh (P simon) [Moles/Vol]1.2 mmol/L0.4 - 2.0 mmol/LProMedica Health SystemCult,Bloodon 85-83-9999Iqkr,BloodSpecimen Description .BLOOD Special Requests Culture NO GROWTH 5 DAYS Report Status FINAL 02/16/2023NormalPromedica Defiance Regional HospitalComment on above:Performed By: #### BMPX, PRCAL #### [facility] [address] [place] [address] [employer]: Sangeetha Nelson Metab w/rfx MGon 83-96-6211Revoa gap [Moles/Vol]13 mmol/LNormal9-17Prom[facility]iance Regional HospitalComment on above: Performed By: #### CBC, BMPX #### [facility] [address] [place], [place] [id number] [employer]: PATTI Nelsonalcium [Mass/Vol]8.2 mg/dLLow8.6-10.4Prom[facility]iance Regional HospitalComment on above:Performed By: #### CBC, BMPX #### [facility] [address] [place] [place] [address] [employer]: Chencho Olvera MDChloride [Moles/Vol]101 mmol/CQmlvxb84-047WjvgaPromedica Defiance Regional HospitalComment on above:Performed By: #### CBC, BMPX #### [facility] [address] [place] [place] [address] [employer]: Chencho Olvera MDCO2 [Moles/Vol]23 mmol/DFcindm22-11UjkiqPromedica Defiance Regional HospitalComment on above:Performed By: #### CBC, BMPX #### [facility] [address] [place] [place] [address] [employer]: PATTI Nelsonreatinine [Mass/Vol]0.8 mg/dLNormal0.7-1.2MChapman Medical CenterComment on above:Performed By: #### CBC, BMPX #### [facility] [address] [place] [address] [employer]: Chencho Olvera MDGFR/1.73 sq M.predicted among non-blacks MDRD (S/P/Bld) [Vol rate/Area]mL/min/{1.73_m2}Normal>60Prom[facility]iance Regional HospitalComment on above:Result Comment: These results are not intended for [...] or following therapy that affects renal tubular secretion.Performed By: #### GUEVARA BMPX #### [place] [address] [employer]: Chencho Olvera MDGlucose [Mass/Vol]104 mg/xFTqwr63-69SzyqxChapman Medical CenterComment on above:Performed By: #### GUEVARA BMPX #### [place] [address] [employer]: Chencho Olvera MDPotassium [Moles/Vol]3.7 mmol/LNormal3.7-5.3 [facility] HospitalComment on above:Performed By: #### GUEVARA, BMPX #### [facility] [address] [place] [address] [employer]: Chencho Olvera MDSodium [Moles/Vol]137 mmol/SWefqgl357-014VundfPromedica Defiance Regional HospitalComment on above:Performed By: #### GUEVARA, BMPX #### [facility] [address] [place] [address] [employer]: Chencho Olvera MDUrea nitrogen [Mass/Vol]12 mg/dLNormal8-23Prom[facility]iance Regional HospitalComment on above:Performed By: #### GUEVARA BMPX #### [address] [address] [employer]: Андрей Nelson 44-85-9120Cpmxpscckzd distribution width (RBC) [Ratio]12.5 %Zpybge38.8-14.4Prom[facility] Defiance Regional HospitalComment on above:Performed By: #### CBC, BMPX #### [address] [address] [employer]: Chencho Olvera MDHematocrit (Bld) [Volume fraction]30.9 %Low 40.7-50.3MChapman Medical CenterComment on above:Performed By: #### CBC, BMPX #### [address] [address] [employer]: Chencho Olvera MDHemoglobin (Bld) [Mass/Vol]9.8 g/dLLow13.0-17.0 [facility] HospitalComment on above:Performed By: #### GUEVARA, BMPX #### [address] [address] [employer]: DUKE NelsonCH (RBC) [Entitic mass]33.1 feIrrkkx35.2-33.5 [facility] HospitalComment on above:Performed By: #### CBC, BMPX #### [address] [address] [employer]: DUKE NelsonCHC (RBC) [Mass/Vol]31.7 g/tARsozjk85.4-34.8 [facility] HospitalComment on above:Performed By: #### CBC, BMPX #### [address] [address] [employer]: DUKE NelsonCV (RBC) [Entitic vol]104.4 sVTppu72.6-102.9 [facility] HospitalComment on above:Performed By: #### CBC, BMPX #### [address] [address] [employer]: SOY Nelson Automated0.0 per 100 WBCNormal0.0Prom[facility]iance Regional HospitalComment on above:Performed By: #### CBC, BMPX #### [address] [address] [employer]: Abel Nelsontear mean volume (Bld) [Entitic vol]9.9 fL Normal8.1-13.5Prom[facility]iance Regional HospitalComment on above:Performed By: #### CBC, BMPX #### [address] [address] [employer]: Abel Nelsontezeenat (Bld) [#/Vol]142 10*3/tKIkmclp271-029 [facility] HospitalComment on above:Performed By: #### CBC, BMPX #### [address] [address] [employer]: RONNIE Nelson (Bld) [#/Vol]2.96 10*6/uLLow4.21-5.77Prom[facility] Regional HospitalComment on above:Performed By: #### CBC, BMPX #### [address] [address] [employer]: CELINA Nelson (Bld) [#/Vol]7.9 10*3/uLNormal3.5-11.3MChapman Medical CenterComment on above:Performed By: #### CBC, BMPX #### [address] [address] [employer]: GARCÍA Nelson CHEST PORTABLEon 18-36-8137WT CHEST PORTABLE EXAMINATION: ONE XRAY VIEW OF THE CHEST 02/13/2023 6:30 am COMPARISON: February 11, 2023 HISTORY: ORDERING SYSTEM PROVIDED HISTORY: cough TECHNOLOGIST PROVIDED HISTORY: cough FINDINGS: There is poor inspiration with crowding of the bronchovascular markings. Stable right perihilar infiltrate. Possible small left-sided pleural effusion. No pneumothorax. Stable cardiac and mediastinal silhouettes. IMPRESSION: Stable appearance of the chest. Interpreted by: Geneva Alvarado MD Signed by: Geneva Alvarado MD 02/13/23 Final resultNormalPromedica Defiance Regional HospitalBasic Metab w/rfx MGon 13-46-2244Ffjkr gap [Moles/Vol]10 mmol/LNormal9-17[facility] HospitalComment on above:Performed By: #### BMPX, PRCAL #### [facility] [address] [place] [place] [address] [employer]: PATTI Nelsonalcium [Mass/Vol]8.2 mg/dLLow8.6-10.4[facility] HospitalComment on above:Performed By: #### BMPX, PRCAL #### [facility] [address] [place] [place] [address] [employer]: PATTI Nelsonhloride [Moles/Vol]100 mmol/GJkslxo59-478YmxojPromedica Defiance Regional HospitalComment on above:Performed By: #### BMPX, PRCAL #### [facility] [address] [place] [place] [address] [employer]: Chencho Olvera MDCO2 [Moles/Vol]26 mmol/VRzwqxl52-85ZntvpPromedica Defiance Regional HospitalComment on above:Performed By: #### BMPX, PRCAL #### [facility] [address] [place] [address] [employer]: Chencho Olvera MDCreatinine [Mass/Vol]0.9 mg/dLNormal0.7-1.2MChapman Medical CenterComment on above:Performed By: #### BMPX, PRCAL #### [facility] [address] [place] [place] [address] [employer]: Chencho Olvera MDGFR/1.73 sq M.predicted among non-blacks MDRD (S/P/Bld) [Vol rate/Area]mL/min/{1.73_m2}Normal>60[facility] HospitalComment on above:Result Comment: These results are not intended for [...] or following therapy that affects renal tubular secretion.Performed By: #### ANGELA PRCAL #### [facility] [address] [place] [address] [employer]: Chencho Olvera MDGlucose [Mass/Vol]96 mg/qYBhakke32-65PcqjyChapman Medical CenterComment on above:Performed By: #### ANGELA PRCAL #### [facility] [address] [place] [address] [employer]: VONDA Nelsonotassium [Moles/Vol]3.8 mmol/LNormal3.7-5.3 [facility] HospitalComment on above:Performed By: #### ANGELA PRCAL #### [facility] [address] [place] [address] [employer]: Chencho Olvera MDSodium [Moles/Vol]136 mmol/GLrqnat995-496RobvuPromedica Defiance Regional HospitalComment on above:Performed By: #### ANGELA, PRCAL #### [facility] [address] [place] [address] [employer]: Chencho Olvera MDUrea nitrogen [Mass/Vol]13 mg/dLNormal8-23[facility] HospitalComment on above:Performed By: #### BMPX, PRCAL #### [facility] [place], [place] [address] [employer]: Samir Nelson Sepsison 54-58-3055Qemiee Acid,Sep Wbld 1.4 mmol/LNormal0.5-1.9[facility] HospitalComment on above: Performed By: #### LACDS #### [facility] [address] [place] [phone] [employer]: VONDA Nelsonrocalcitoninon 84-12-6819Kxtqhmnrrpscg1.12 ng/mLHigh<0.09[facility] HospitalComment on above:Result Comment: Suspected Sepsis: <0.50 ng/mL Low likelihood [...] entered into the Change in Procalcitonin Calculator ([email or web address]-tyr-hhqcuuueim.com) to determine the patient's Mortality Risk Prognosis In healthy neonates, plasma Procalcitonin (PCT) concentrations increase gradually after , reaching peak values at about 24 hours of age then decrease to normal values below 0.5 ng/mL by 48-72 hours of age.Performed By: #### ANGELA, PRCAL #### [facility] [address] [place] [place] [phone] [employer]: Chencho Olvera MDBasic Metab w/rfx MGon 59-96-4319Onyoa gap [Moles/Vol]12 mmol/LNormal9-17[facility] HospitalComment on above: Performed By: #### PT, BMPX, CDP #### [facility] [place] [address] [employer]: PATTI Nelsonalcium [Mass/Vol]8.6 mg/dLNormal8.6-10.4[facility] HospitalComment on above:Performed By: #### PT, BMPX, CDP #### [facility] [address] [place] [address] [employer]: Chencho Olvera MDChloride [Moles/Vol]103 mmol/UXhryjf91-149UugaxPromedica Defiance Regional HospitalComment on above:Performed By: #### PT BMPX, CDP #### [facility] [address] [place] [place] [address] [employer]: Chencho Olvera MDCO2 [Moles/Vol]23 mmol/MFdmurf48-41AegcgPromedica Defiance Regional HospitalComment on above:Performed By: #### PT BMPX, CDP #### [facility] [address] [place] [address] [employer]: PATTI Nelsonreatinine [Mass/Vol]0.8 mg/dLNormal0.7-1.2MChapman Medical CenterComment on above:Performed By: #### PT BMPX, CDP #### [facility] [address] [place] [place] [address] [employer]: Chencho Olvera MDGFR/1.73 sq M.predicted among non-blacks MDRD (S/P/Bld) [Vol rate/Area]mL/min/{1.73_m2}Normal>60[facility] HospitalComment on above:Result Comment: These results are not intended for [...] or following therapy that affects renal tubular secretion.Performed By: #### PT, BMPX, CDP #### [facility] [address] [place] [address] [employer]: Chencho Olvera MDGlucose [Mass/Vol]82 mg/gNWaldma84-26ZfazcChapman Medical CenterComment on above:Performed By: #### PT, BMPX, CDP #### [facility] [address] [place] [place] [address] [employer]: VONDA Nelsonotassium [Moles/Vol]4.2 mmol/LNormal3.7-5.3 [facility] HospitalComment on above:Performed By: #### DONAVAN BMPX, CDP #### [facility] [address] [place] [place] [address] [employer]: GIN Nelsonodium [Moles/Vol]138 mmol/SCdyeqz072-440VpjzhPromedica Defiance Regional HospitalComment on above:Performed By: #### DONAVAN BMPX, CDP #### [facility] [address] [place] [place] [address] [employer]: Chencho Olvera MDUrea nitrogen [Mass/Vol]13 mg/dLNormal8-23[facility] HospitalComment on above:Performed By: #### PT BMPX, CDP #### [facility] [address] [place] [address] [employer]: Chencho Olvera [facility] with Diffon 48-03-4934Zxu. Basophil0.00 k/uL Normal0.0-0.2MChapman Medical CenterComment on above:Performed By: #### PT, BMPX, CDP #### [facility] [address] [place] [address] [employer]: Jaret Nelson.Imm.Granulocyte0.00 k/uLNormal0.00-0.30[facility] HospitalComment on above:Performed By: #### PT, BMPX, CDP #### [facility] [address] [place] [place] [address] [employer]: Jaret Nelson.Neutrophil (Seg)7.28 k/uLNormal1.8-7.7Prom[facility]iance Regional HospitalComment on above:Performed By: #### PT, BMPX, CDP #### [address] [address] [employer]: Chencho Olvera MDBasophils/100 WBC (Bld)0 %Normal0-2MChapman Medical CenterComment on above:Performed By: #### PT, BMPX, CDP #### [facility] [address] [place] [address] [employer]: Chencho Olvera MDEosinophils (Bld) [#/Vol]0.00 10*3/uLNormal 0.0-0.4[facility] HospitalComment on above:Performed By: #### PT, BMPX, CDP #### [address] [address] [employer]: Chencho Olvera MDEosinophils/100 WBC (Bld)0 %Low1-4[facility] HospitalComment on above:Performed By: #### PT, BMPX, CDP #### [facility] [address] [place] [place] [address] [employer]: Chencho Olvera MDImmature granulocytes/100 WBC (Bld)0 %Normal0 [facility] HospitalComment on above:Performed By: #### PT, BMPX, CDP #### [address] [address] [employer]: Chencho Olvera MDLymphocytes (Bld) [#/Vol]1.00 10*3/uLNormal 1.0-4.8[facility] HospitalComment on above:Performed By: #### PT, BMPX, CDP #### [facility] [address] [place] [place] [address] [employer]: Chencho Olvera MDLymphocytes/100 WBC (Bld)11 %Ger19-37RdlrmPromedica Defiance Regional HospitalComment on above:Performed By: #### PT, BMPX, CDP #### [facility] [address] [place] [place] [address] [employer]: Chencho Olvera MDMonocytes (Bld) [#/Vol]0.82 10*3/uLHigh0.1-0.8 [facility] HospitalComment on above:Performed By: #### PT, BMPX, CDP #### [facility] [address] [place] [place] [address] [employer]: DUKE Nelsononocytes/100 WBC (Bld)9 %High1-7[facility] HospitalComment on above:Performed By: #### PT, BMPX, CDP #### [facility] [address] [place] [place] [address] [employer]: DUKE Nelsonorphology Harsh (Bld) [Interp]MACROCYTOSIS PRESENTNormalPromedica Defiance Regional HospitalComment on above:Performed By: #### PT, BMPX, CDP #### [facility] [address] [place] [place] [address] [employer]: Chencho Olvera MDNeutrophil (Seg)80 %Ntih75-22CyvgtPromedica Defiance Regional HospitalComment on above:Performed By: #### PT, BMPX, CDP #### [facility] [address] [place] [place] [address] [employer]: Chencho Olvera MDErythrocyte distribution width (RBC) [Ratio]12.9 %Szaefp98.8-14.4[facility] HospitalComment on above:Performed By: #### PT, BMPX, CDP #### [address] [address] [employer]: Chencho Olvera MDHematocrit (Bld) [Volume fraction]34.6 %Low 40.7-50.3Msumma healthy [facility] Mary HospitalComment on above:Performed By: #### PT, BMPX, CDP #### [place] [address] [employer]: Chencho Olvera MDHemoglobin (Bld) [Mass/Vol]10.9 g/dLLow13.0-17.0 [facility] HospitalComment on above:Performed By: #### PT, BMPX, CDP #### [place] [address] [employer]: DUKE NelsonCH (RBC) [Entitic mass]32.9 qyLcpzce03.2-33.5 [facility] HospitalComment on above:Performed By: #### PT, BMPX, CDP #### [place] [address] [employer]: DUKE NelsonCHC (RBC) [Mass/Vol]31.5 g/fEBfurxv26.4-34.8 [facility] HospitalComment on above:Performed By: #### PT, BMPX, CDP #### [place] [address] [employer]: DUKE NelsonCV (RBC) [Entitic vol]104.5 kFNuic44.6-102.9 [facility] HospitalComment on above:Performed By: #### PT, BMPX, CDP #### [place] [address] [employer]: Chencho Olvera MDNRBC Automated0.0 per 100 WBCNormal0.0[facility] HospitalComment on above:Performed By: #### PT, BMPX, CDP #### [facility] [place] [address] [employer]: Maria Luisa Nelson mean volume (Bld) [Entitic vol]9.5 fL Normal8.1-13.5[facility] HospitalComment on above:Performed By: #### DONAVAN, BMPX, CDP #### [facility] [address] [place] [address] [employer]: Dacia Nelson (Bld) [#/Vol]133 10*3/cFBso435-299 [facility] HospitalComment on above:Performed By: #### UMER GOX, CDP #### [facility] [address] [place] [address] [employer]: STEVE NelsonBC (Bld) [#/Vol]3.31 10*6/uLLow4.21-5.77[facility] HospitalComment on above:Performed By: #### ANGELA GO, CDP #### [facility] [address] [place] [address] [employer]: CELINA Nelson (Bld) [#/Vol]9.1 10*3/uLNormal3.5-11.3MChapman Medical CenterComment on above:Performed By: #### DONAVAN BMPX, CDP #### [facility] [address] [place] [address] [employer]: Samir Nelson, Mton 06-43-7163Yicfrd Acid,Sep Wbld 1.7 mmol/LNormal0.5-1.9[facility] HospitalComment on above: Performed By: #### BMPX, PRCAL #### [facility] [address] [place] [place] [address] [employer]: Jewell Nelson 27-08-4283AIY Coag (PPP) [Relative time]1.5 {INR}NormalPromedica Defiance Regional HospitalComment on above:Result Comment: Therapeutic Range: Moderate Anticoagulant Intensity: INR = 2.0-3.0 High Anticoagulant Intensity: INR = 2.5-3.5Performed By: #### PT, BMPX, CDP #### [facility] [address] [place], [place] [id number] [employer]: SIMON Nelson Coag (PPP) [Time]17.4 sHigh11.7-14.9[facility] HospitalComment on above:Performed By: #### PT, BMPX, CDP #### [facility] [address] [place], [place] [address]28[address] [employer]: GARCÍA Nelson ABDOMEN (KUB) (SINGLE AP VIEW)on 23-95-8811PI ABDOMEN (KUB) (SINGLE AP VIEW)EXAMINATION: ONE SUPINE XRAY VIEW(S) OF THE ABDOMEN [...] Signed by: Subhash Garcia MD 02/11/23 Final resultNormalPromedica Defiance Regional HospitalXR CHEST PORTABLEon 02-11-2023 XR CHEST PORTABLEEXAMINATION: ONE XRAY VIEW OF THE CHEST 02/11/2023 [...] Signed by: Wellington Lucero MD 02/11/23 Final resultNormalTuscarawas Hospital with Diffon 23-71-6272Lcn. Basophil0.03 k/uLNormal0.00-0.20[facility] HospitalComment on above:Performed By: #### LACTIC, CDP #### [facility] [address] [place] [address] [employer]: Chencho Olvera MD #### CP #### [facility] [address] [place] [address] [employer]: Jaret Nguyen. Eosinophil<0.98Wzzzch0.00-0.44[facility] HospitalComment on above:Performed By: #### LACTIC, CDP #### [facility] [address] [place] [place] [address] [employer]: Chencho Olvera MD #### CP #### [facility] [address] [place] [address] [employer]: Jaret Nguyen.Imm.Granulocyte0.05 k/uLNormal0.00-0.30 [facility] HospitalComment on above:Performed By: #### LACTIC, CDP #### [facility] [address] [place] [address] [employer]: Chencho Olvera MD #### CP #### [facility] [address] [place] [address] [employer]: Jaret Nguyen.Neutrophil (Seg)10.43 k/uLHigh1.50-8.10 [facility] HospitalComment on above:Performed By: #### LACTIC, CDP #### [facility] [address] [place] [place] [address] [employer]: Chencho Olvera MD #### CP #### [facility] [address] [place], [place] [address] [employer]: Hadley Smith MDBasophils/100 WBC (Bld)0 %Normal0-2MChapman Medical CenterComment on above:Performed By: #### LACTIC, CDP #### [address] [address] [employer]: Chencho Olvera MD #### CP #### [facility] [address] [place], [place] 9979[address] [employer]: Hadley Smith MDEosinophils/100 WBC (Bld)0 %Low1-4[facility] HospitalComment on above:Performed By: #### LACTIC, CDP #### [address] [address] [employer]: Chencho Olvera MD #### CP #### [facility] [address] [place], [place] 4427[address] [employer]: Hadley Smith MDErythrocyte distribution width (RBC) [Ratio] 12.8 %Zmenjc93.8-14.4[facility] HospitalComment on above:Performed By: #### LACTIC, CDP #### [address] [address] [employer]: Chencho Olvera MD #### CP #### [facility] [address] [place] [address] [employer]: Hadley Smith MDHematocrit (Bld) [Volume fraction]33.2 %Low 40.7-50.3Msumma healthy [facility] HospitalComment on above:Performed By: #### LACTIC, CDP #### [address] [address] [employer]: Chencho Olvera MD #### CP #### [facility] [address] [place] [address] [employer]: Hadley Smith MDHemoglobin (Bld) [Mass/Vol]11.0 g/dLLow 13.0-17.0[facility] HospitalComment on above:Performed By: #### LACTIC, CDP #### [address] [address] [employer]: Chencho Olvera MD #### CP #### [facility] [address] [place] [address] [employer]: Hadley Smith MDImmature granulocytes/100 WBC (Bld)0 %Normal0 [facility] HospitalComment on above:Performed By: #### LACTIC, CDP #### [address] [address] [employer]: Chencho Olvera MD #### CP #### [facility] [address] [place] [address] [employer]: Hadley Smith MDLymphocytes (Bld) [#/Vol]1.27 10*3/uLNormal 1.10-3.70[facility] HospitalComment on above:Performed By: #### LACTIC, CDP #### [address] [address] [employer]: Chencho Olvera MD #### CP #### [facility] [address] [place] [address] [employer]: Hadley Smith MDLymphocytes/100 WBC (Bld)10 %Fyv63-32WdaymPromedica Defiance Regional HospitalComment on above:Performed By: #### LACTIC, CDP #### [address] [address] [employer]: Chencho Olvera MD #### CP #### [facility] [address] [place] [address] [employer]: DUKE NguyenCH (RBC) [Entitic mass]33.2 kuTgelrb41.2-33.5 [facility] HospitalComment on above:Performed By: #### LACTIC, CDP #### [address] [address] [employer]: Chencho Olvera MD #### CP #### [facility] [address] [place] [address] [employer]: DUKE NguyenCHC (RBC) [Mass/Vol]33.1 g/lHXraaqi92.4-34.8 [facility] HospitalComment on above:Performed By: #### LACTIC, CDP #### [address] [address] [employer]: Chencho Olvera MD #### CP #### [facility] [address] [place] [address] [employer]: DUKE NguyenCV (RBC) [Entitic vol]100.3 iMRwomgs15.6-102.9 [facility] HospitalComment on above:Performed By: #### LACTIC, CDP #### [address] [address] [employer]: Chencho Olvera MD #### CP #### [facility] [address] [place] [address] [employer]: DUKE Nguyenonocytes (Bld) [#/Vol]0.57 10*3/uLNormal 0.10-1.20[facility] HospitalComment on above:Performed By: #### LACTIC, CDP #### [address] [address] [employer]: Chencho Olvera MD #### CP #### [facility] [address] [place] [address] [employer]: DUKE Nguyenonocytes/100 WBC (Bld)5 %Normal3-12[facility] HospitalComment on above:Performed By: #### LACTIC, CDP #### [address] [address] [employer]: Chencho Olvera MD #### CP #### [facility] [address] [place] [address] [employer]: Hadley Smith MDNeutrophil (Seg)85 %Yhmj54-77XrmmwPromedica Defiance Regional HospitalComment on above:Performed By: #### LACTIC, CDP #### [address] [address] [employer]: Chencho Olvera MD #### CP #### [facility] [address] [place] [address] [employer]: Hadley Smith MDNRBC Automated0.0 per 100 WBCNormal0.0[facility] HospitalComment on above:Performed By: #### LACTIC, CDP #### [address] [address] [employer]: Chencho Olvera MD #### CP #### [facility] [address] [place] [address] [employer]: VONDA Nguyenlatelet mean volume (Bld) [Entitic vol]9.3 fL Normal8.1-13.5[facility] HospitalComment on above:Performed By: #### LACTIC, CDP #### [address] [address] [employer]: Chencho Olvera MD #### CP #### [facility] [address] [place] [address] [employer]: Dacia Nguyen (Vale) [#/Vol]169 10*3/oDAoripe148-998 [facility] HospitalComment on above:Performed By: #### LACTIC, CDP #### [address] [address] [employer]: Chencho Olvera MD #### CP #### [facility] [address] [place] [address] [employer]: RONNIE Nguyen ([place]) [#/Vol]3.31 10*6/uLLow4.21-5.77[facility] HospitalComment on above:Performed By: #### LACTIC, CDP #### [address] [address] [employer]: Chencho Olvera MD #### CP #### [facility] [address] [place] [address] [employer]: CELINA Nguyen (dayton) [#/Vol]12.4 10*3/uLHigh3.5-11.3MChapman Medical CenterComment on above:Performed By: #### LACTIC, CDP #### [address] [address] [employer]: Chencho Olvera MD #### CP #### [facility] [address] [place] [address] [employer]: Hadley Smith [facility]ALESTERomp Metabolic Profon 10-01-0996Doesmbq [Mass/Vol]3.7 g/dLNormal3.5-5.2Msumma healthy [facility] HospitalComment on above: Performed By: #### ANGELA, PRCAL #### [facility] [address] [place] [place] [address] [employer]: Chencho Olvera MDAlkaline Kqqz290 U/IBrggrb28-953IsjvqPromedica Defiance Regional HospitalComment on above:Performed By: #### ANGELA, PRCAL #### [address] [address] [employer]: Chencho Olvera MDALT [Catalytic activity/Vol]16 U/LNormal5-41 [facility] HospitalComment on above:Performed By: #### ANGELA, PRCAL #### [address] [address] [employer]: Chencho Olvera MDAnitawny gap [Moles/Vol]11 mmol/LNormal9-17[facility] HospitalComment on above:Performed By: #### ANGELA, PRCAL #### [address] [address] [employer]: Chencho Olvera MDAST [Catalytic activity/Vol]16 U/LNormal<40[facility] HospitalComment on above:Performed By: #### ANGELA, PRCAL #### [address] [address] [employer]: Chencho Olvera MDBilirubin [Mass/Vol]0.4 mg/dLNormal0.3-1.2MChapman Medical CenterComment on above:Performed By: #### UMERX, PRCAL #### [address] [address] [employer]: Chencho Olvera MDBUN/CRE Kjjiu69Vynhzt3-35GamlcPromedica Defiance Regional HospitalComment on above:Performed By: #### ANGELA, PRCAL #### [facility] [address] [place] [place] [address] [employer]: PATTI Nelsonalcium [Mass/Vol]8.8 mg/dLNormal8.6-10.4[facility] HospitalComment on above:Performed By: #### ANGELA, PRCAL #### [facility] [address] [place] [address] [employer]: PATTI Nelsonhloride [Moles/Vol]103 mmol/HHqbxfk42-856TjzvaPromedica Defiance Regional HospitalComment on above:Performed By: #### ANGELA, PRCAL #### [facility] [address] [place] [address] [employer]: Chencho Olvera MDCO2 [Moles/Vol]26 mmol/BSguqkj39-82FrharPromedica Defiance Regional HospitalComment on above:Performed By: #### ANGELA, PRCAL #### [facility] [address] [place] [place] [address] [employer]: PATTI Nelsonreatinine [Mass/Vol]1.0 mg/dLNormal0.7-1.2MChapman Medical CenterComment on above:Performed By: #### ANGELA, PRCAL #### [place] [address] [employer]: Chencho Olvera MDGFR/1.73 sq M.predicted among non-blacks MDRD (S/P/Bld) [Vol rate/Area]mL/min/{1.73_m2}Normal>60[facility] HospitalComment on above:Result Comment: These results are not intended for [...] or following therapy that affects renal tubular secretion.Performed By: #### ANGELA PRCAL #### [address] [address] [employer]: Chencho Olvera MDGlucose [Mass/Vol]120 mg/xHHkkk24-69BpnupChapman Medical CenterComment on above:Performed By: #### ANGELA PRCAL #### [address] [address] [employer]: Chencho Olvera MDPotassium [Moles/Vol]4.0 mmol/LNormal3.7-5.3 [facility] HospitalComment on above:Performed By: #### ANGELA PRCAL #### [place] [address] [employer]: Chencho Olvera MDProtein [Mass/Vol]6.3 g/dLLow6.4-8.3MChapman Medical CenterComment on above:Performed By: #### ANGELA PRCCLAUDIO #### [address] [address] [employer]: GIN Nelsonodium [Moles/Vol]140 mmol/GKrlrgj221-174SreliPromedica Defiance Regional HospitalComment on above:Performed By: #### ANGELA PRCAL #### [place] [address] [employer]: Chencho Olvera MDUrea nitrogen [Mass/Vol]19 mg/dLNormal8-23[facility] HospitalComment on above:Performed By: #### ANGELA PRCAL #### [address] [address] [employer]: Chencho Olvera MDLactic Acidon 83-31-9869Sinrfb Acid,Whole Bl1.1 mmol/LNormal0.7-2.1[facility] HospitalComment on above:Performed By: #### LACTIC, CDP #### [facility] [address] [place], [place] [address] [employer]: Chencho Olvera MD #### CP #### [facility] [address] [place], [place] [address] [employer]: GARCÍA Nguyen CHEST PORTABLEon 78-28-1244OB CHEST PORTABLE EXAMINATION: ONE XRAY VIEW OF [...] Signed by: Melchor Mota MD 02/10/23 Final resultNormalMercy Little Company Of Mary HospitalCHEMISTRYOrdered By: SYSTEM SYSTEM on 95-68-4791Jgdyf gap [Moles/Vol]12 mmol/LNormal6 - 16 mEq/LFTMC Remisol Calcium [Mass/Vol]8.5 mg/dLLow8.9 - 11.1 mg/dLFT RemisolChloride [Moles/Vol] 105 mmol/ZGvnavx832 - 111 mmol/LFTMC RemisolCO2 [Moles/Vol]28 mmol/RVvpmla17 - 31 mmol/LFTMC RemisolCreatinine [Mass/Vol]1.0 mg/dLNormal0.5 - 1.3 mg/dLFT RemisolGFR/1.73 sq M.predicted among non-blacks MDRD (S/P/Bld) [Vol rate/Area]83 mL/min/1.73 q7Bjfhun>=59mL/min/1.[address] [facility] Chem SGlucose [Mass/Vol]91 mg/dL Tlemxe75 - 199 mg/dLFTMC RemisolMagnesium [Mass/Vol]1.4 mg/dLNormal1.3 - 2.4 mg/dLFTMC RemisolPotassium [Moles/Vol]3.5 mmol/LNormal3.5 - 5.3 mmol/LFTMC RemisolSodium [Moles/Vol]141 mmol/EYufkdt187 - 145 mmol/LFTMC RemisolUrea nitrogen [Mass/Vol]12 mg/dLNormal5 - 21 mg/dLFTMC RemisolUrea nitrogen/Creatinine [Mass ratio]12 mg/duAbmcuv67 - 20FTMC RemisolHEMATOLOGY Ordered By: [employer] SYSTEM on 13-15-7955Hkpgtoedm/100 WBC (Bld)0.3 %Normal0.0 - 2.0 %[facility] HemeAutoSSBasophils/Leukocytes Auto (Bld) [Pure # fraction]0.0 E9/L Normal0.0 - 0.2 E9/LFTMC HemeAutoSSEosinophils/100 WBC (Bld)3.4 %Normal0.0 - 8.0 %[facility] HemeAutoSSEosinophils/Leukocytes Auto (Bld) [Pure # fraction]0.2 E9/L Normal0.0 - 0.5 E9/LFTMC HemeAutoSSLymphocytes/100 WBC (Bld)33.5 %Vsqvfo59.0 - 50.0 %[facility] HemeAutoSSLymphocytes/Leukocytes Auto (Bld) [Pure # fraction]1.6 E9/L Normal1.0 - 4.0 E9/LFTMC HemeAutoSSMonocytes/100 WBC (Bld)8.3 %Normal4.0 - 14.0 %[facility] HemeAutoSSMonocytes/Leukocytes Auto (Bld) [Pure # fraction]0.4 E9/LNormal 0.2 - 1.0 E9/LFTMC HemeAutoSSNeutrophils/100 WBC (Bld)54.5 %Ssgrrh54.0 - 75.0 % [facility] HemeAutoSSNeutrophils/Leukocytes Auto (Bld) [Pure # fraction]2.6 E9/LNormal 2.0 - 7.5 E9/LFTMC HemeAutoSSHEMATOLOGYOrdered By: Mavis Ramírez on 11-11-2022 Erythrocyte distribution width (RBC) [Ratio]13.2 %Dmaamg00.9 - 14.2 %[facility] HemeAutoSSHematocrit (Bld) [Volume fraction]31.9 %Low37.7 - 49.0 %[facility] HemeAutoSSHemoglobin (Bld) [Mass/Vol]11.1 g/dLLow13.5 - 17.5 gm/dLFTMC HemeAutoSSMCH (RBC) [Entitic mass]33.2 gwUwebus43.0 - 34.0 pgFTMC HemeAutoSSMCHC (RBC) [Mass/Vol]34.8 g/eSIdeknc51.4 - 36.0 gm/dLFTMC HemeAutoSSMCV (RBC) [Entitic vol]95.5 dQSaopnh66.0 - 100.0 fLFTMC HemeAutoSSPlatelet mean volume (Bld) [Entitic vol]6.9 fLNormal6.4 - 10.8 fLFTMC HemeAutoSSPlatelets (Bld) [#/Vol]147.0 E9/NLnb482.0 - 500.0 E9/LFTMC HemeAutoSSRBC (Bld) [#/Vol]3.3 E12/L Low4.3 - 5.9 E12/LFTMC HemeAutoSSWBC corrected for nucl RBC Auto (Bld) [#/Vol] 4.9 E9/LNormal4.0 - 11.0 E9/LFTMC HemeAutoSSCHEMISTRYOrdered By: SYSTEM SYSTEM on 69-46-4829Cwxws gap [Moles/Vol]9 mmol/LNormal6 - 16 mEq/LFTMC RemisolCalcium [Mass/Vol]8.6 mg/dLLow8.9 - 11.1 mg/dLFTMC RemisolChloride [Moles/Vol]107 mmol/L Owuufe482 - 111 mmol/LFTMC RemisolCO2 [Moles/Vol]28 mmol/IXiyskt26 - 31 mmol/L [facility] RemisolCreatinine [Mass/Vol]1.0 mg/dLNormal0.5 - 1.3 mg/dLFTMC Remisol GFR/1.73 sq M.predicted among non-blacks MDRD (S/P/Bld) [Vol rate/Area]83 mL/min/1.73 s9Tobrok>=59mL/min/1.73 m2FT Chem SGlucose [Mass/Vol]87 mg/dL Gtjybm46 - 199 mg/dLFTMC RemisolMagnesium [Mass/Vol]1.5 mg/dLNormal1.3 - 2.4 mg/dLFTMC RemisolPotassium [Moles/Vol]4.0 mmol/LNormal3.5 - 5.3 mmol/LFTMC RemisolSodium [Moles/Vol]140 mmol/GVscdrl407 - 145 mmol/LFTMC RemisolUrea nitrogen [Mass/Vol]15 mg/dLNormal5 - 21 mg/dLFTMC RemisolUrea nitrogen/Creatinine [Mass ratio]15 mg/hoGynisa46 - 20FTMC RemisolHEMATOLOGY Ordered By: SYSTEM SYSTEM on 23-08-4094Xmlicatou/100 WBC (Bld)0.6 %Normal0.0 - 2.0 %[facility] HemeAutoSSBasophils/Leukocytes Auto (Bld) [Pure # fraction]0.0 E9/L Normal0.0 - 0.2 E9/LFTMC HemeAutoSSEosinophils/100 WBC (Bld)4.1 %Normal0.0 - 8.0 %[facility] HemeAutoSSEosinophils/Leukocytes Auto (Bld) [Pure # fraction]0.2 E9/L Normal0.0 - 0.5 E9/LFTMC HemeAutoSSLymphocytes/100 WBC (Bld)32.5 %Jvtpdj93.0 - 50.0 %[facility] HemeAutoSSLymphocytes/Leukocytes Auto (Bld) [Pure # fraction]1.7 E9/L Normal1.0 - 4.0 E9/LFTMC HemeAutoSSMonocytes/100 WBC (Bld)6.7 %Normal4.0 - 14.0 %[facility] HemeAutoSSMonocytes/Leukocytes Auto (Bld) [Pure # fraction]0.3 E9/LNormal 0.2 - 1.0 E9/LFTMC HemeAutoSSNeutrophils/100 WBC (Bld)56.1 %Oaqtse98.0 - 75.0 % [facility] HemeAutoSSNeutrophils/Leukocytes Auto (Bld) [Pure # fraction]2.9 E9/LNormal 2.0 - 7.5 E9/LFTMC HemeAutoSSHEMATOLOGYOrdered By: Mavis Ramírez on 11-10-2022 Erythrocyte distribution width (RBC) [Ratio]13.5 %Tijtrf15.9 - 14.2 %[facility] HemeAutoSSHematocrit (Bld) [Volume fraction]32.0 %Low37.7 - 49.0 %[facility] HemeAutoSSHemoglobin (Bld) [Mass/Vol]10.6 g/dLLow13.5 - 17.5 gm/dLFTMC HemeAutoSSMCH (RBC) [Entitic mass]32.1 yzUqkaob62.0 - 34.0 pgFTMC HemeAutoSSMCHC (RBC) [Mass/Vol]33.0 g/hWRbjlev83.4 - 36.0 gm/dLFTMC HemeAutoSSMCV (RBC) [Entitic vol]97.3 qEHcbtwe46.0 - 100.0 fLFTMC HemeAutoSSPlatelet mean volume (Bld) [Entitic vol]7.3 fLNormal6.4 - 10.8 fLFTMC HemeAutoSSPlatelets (Bld) [#/Vol]153.0 E9/WBicuzu640.0 - 500.0 E9/LFTMC HemeAutoSSRBC (Bld) [#/Vol]3.3 E12/LLow4.3 - 5.9 E12/LFTMC HemeAutoSSWBC corrected for nucl RBC Auto (Bld) [#/Vol]5.2 E9/LNormal4.0 - 11.0 E9/LFTMC HemeAutoSSCHEMISTRYOrdered By: Lab ROPUser on 61-04-4952Bpbyiek [Mass/Vol]73 mg/qBBmjsxb97 - 99 mg/dLFTMC POC SubsectionComment on above:Result Comment: Cleaned MeterPOC Device SN [id number] Interpretation CodeFTMC POC SubsectionPOC User [id number] Invalid Interpretation CodeFTMC POC SubsectionPOC UsernamMARICRUZ MobleyInvalid Interpretation CodeFTMC POC SubsectionCHEMISTRYOrdered By: SYSTEM SYSTEM on 55-19-2527Izjjo gap [Moles/Vol]9 mmol/LNormal6 - 16 mEq/LFTMC RemisolCalcium [Mass/Vol]8.6 mg/dLLow8.9 - 11.1 mg/dLFTMC RemisolChloride [Moles/Vol]107 mmol/L Sclriu976 - 111 mmol/LFTMC RemisolCO2 [Moles/Vol]24 mmol/CPojmzd41 - 31 mmol/L [facility] RemisolCreatinine [Mass/Vol]1.1 mg/dLNormal0.5 - 1.3 mg/dLFTMC Remisol GFR/1.73 sq M.predicted among non-blacks MDRD (S/P/Bld) [Vol rate/Area]74 mL/min/1.73 s9Eapfnd>=59mL/min/1.73 m2[facility] Chem SGlucose [Mass/Vol]79 mg/dL Evzall56 - 199 mg/dLFTMC RemisolMagnesium [Mass/Vol]1.3 mg/dLNormal1.3 - 2.4 mg/dLFT[facility] RemisolPotassium [Moles/Vol]3.9 mmol/LNormal3.5 - 5.3 mmol/LFTMC RemisolSodium [Moles/Vol]136 mmol/FYffwod408 - 145 mmol/LFTMC RemisolUrea nitrogen [Mass/Vol]26 mg/dLHigh5 - 21 mg/dLFT[facility] RemisolUrea nitrogen/Creatinine [Mass ratio]24 mg/zdNssk06 - 20[facility] RemisolHEMATOLOGYOrdered By: SYSTEM SYSTEM on [id number]/100 WBC (Bld)0.4 %Normal0.0 - 2.0 %[facility] HemeAutoSS Basophils/Leukocytes Auto (Bld) [Pure # fraction]0.0 E9/LNormal0.0 - 0.2 E9/L [facility] HemeAutoSSEosinophils/100 WBC (Bld)2.3 %Normal0.0 - 8.0 %[facility] HemeAutoSS Eosinophils/Leukocytes Auto (Bld) [Pure # fraction]0.2 E9/LNormal0.0 - 0.5 E9/L [facility] HemeAutoSSLymphocytes/100 WBC (Bld)25.3 %Rdkcqo61.0 - 50.0 %[facility] HemeAutoSS Lymphocytes/Leukocytes Auto (Bld) [Pure # fraction]1.9 E9/LNormal1.0 - 4.0 E9/L [facility] HemeAutoSSMonocytes/100 WBC (Bld)6.5 %Normal4.0 - 14.0 %[facility] HemeAutoSS Monocytes/Leukocytes Auto (Bld) [Pure # fraction]0.5 E9/LNormal0.2 - 1.0 E9/L [facility] HemeAutoSSNeutrophils/100 WBC (Bld)65.5 %Ovdpla80.0 - 75.0 %[facility] HemeAutoSS Neutrophils/Leukocytes Auto (Bld) [Pure # fraction]5.0 E9/LNormal2.0 - 7.5 E9/L [facility] HemeAutoSSHEMATOLOGYOrdered By: Gisselle See on [id number] distribution width (RBC) [Ratio]13.5 %Rutbmf98.9 - 14.2 %[facility] HemeAutoSS Hematocrit (Bld) [Volume fraction]30.8 %Low37.7 - 49.0 %[facility] HemeAutoSS Hemoglobin (Bld) [Mass/Vol]10.4 g/dLLow13.5 - 17.5 gm/dLFTMC HemeAutoSSMCH (RBC) [Entitic mass]32.6 tjLuyfue83.0 - 34.0 pgFTMC HemeAutoSSMCHC (RBC) [Mass/Vol] 33.6 g/tMGlgklh66.4 - 36.0 gm/dLFTMC HemeAutoSSMCV (RBC) [Entitic vol]97.1 fL Ptlqhv91.0 - 100.0 fLFTMC HemeAutoSSPlatelet mean volume (Bld) [Entitic vol]7.6 fLNormal6.4 - 10.8 fLFTMC HemeAutoSSPlatelets (Bld) [#/Vol]167.0 E9/KUnyazf837.0 - 500.0 E9/L[facility] HemeAutoSSRBC (Bld) [#/Vol]3.2 E12/LLow4.3 - 5.9 E12/L[facility] HemeAutoSSWBC corrected for nucl RBC Auto (Bld) [#/Vol]7.7 E9/LNormal4.0 - 11.0 E9/L[facility] HemeAutoSSCHEMISTRYOrdered By: SYSTEM SYSTEM on 90-06-7053Vkfycpr [Mass/Vol]4.4 g/dLNormal3.3 - 5.0 gm/dLFT[facility] RemisolAlbumin/Globulin [Mass ratio] 1.1 {ratio}Normal1.1 - 2.2FTM RemisolALP [Catalytic activity/Vol]115 [iU]/dHigh 21 - 98 Int._Unit/[facility] RemisolALT No additional P-5'-P [Catalytic activity/Vol] 21 [iU]/dNormal6 - 46 Int._Unit/[facility] RemisolAST [Catalytic activity/Vol]22 [iU]/dNormal5 - 43 Int._Unit/[facility] RemisolBilirubin [Mass/Vol]0.7 mg/dLNormal0.0 - 1.1 mg/dLFTMC RemisolBilirubin.direct [Mass/Vol]0.2 mg/dLNormal0.1 - 0.4 mg/dLFT[facility] RemisolBilirubin.indirect [Mass or moles/Vol]0.5 mg/dLNormal0.1 - 0.9 mg/dLFT[facility] RemisolGlobulin (S) [Mass/Vol]4.0 g/dLNormal1.4 - 4.0 gm/dL[facility] RemisolLipase [Catalytic activity/Vol]33 U/RVbrfhx42 - 58 unit/[facility] Remisol Protein [Mass/Vol]8.4 g/dLHigh6.0 - 7.8 gm/dLFT RemisolCBC auto differentialon [id number] (Bld) [#/Vol][facility] HEALTHBasophils/100 WBC (Bld)0 %0 - 2 %[facility] HEALTHEosinophils (Bld) [#/Vol]0.21 10*3/uLBON [facility]CY HEALTHEosinophils/100 WBC (Bld)4 %1 - 4 %[facility] Erythrocyte distribution width (RBC) [Ratio]12.8 %11.8 - 14.4 %[facility] HEALTHHematocrit (Bld) [Volume fraction]28.9 %Low40.7 - 50.3 %[facility] HEALTHHemoglobin (Bld) [Mass/Vol]9.5 g/dLLow13.0 - 17.0 g/dLB[facility] HEALTHImmature granulocytes (Bld) [#/Vol][facility] HEALTHImmature granulocytes/100 WBC (Bld)0 %0BON [facility]Y HEALTHInterpretation and review of laboratory resultsAbnormalB[facility] HEALTHLymphocytes/100 WBC (Bld)29 %24 - 43 %[facility] HEALTHLymphocytes/100 WBC (Bld)1.74 %[facility]ENTERH (RBC) [Entitic mass]32.8 pg25.2 - 33.5 pgBON [facility] CENTERHC (RBC) [Mass/Vol]32.9 g/dL28.4 - 34.8 g/dLBON SECOU[facility] MEDICAL CENTERMCV (RBC) [Entitic vol]99.7 fL82.6 - 102.9 fLHONORHE[facility] HEALTHMonocytes/100 WBC (Bld)9 %3 - 12 %[facility]ITALY HEALTHMonocytes/100 WBC (Bld)0.55 %[facility] HEALTHNeutrophils/100 WBC (Bld)58 %36 - 65 %[facility]ITALY HEALTHNucleated RBC/100 WBC (Bld) [Ratio]0.0 %0.0 per 100 WBCBON SEC[facility]RS [facility] HOSPITALY HEALTHPlatelet mean volume (Bld) [Entitic vol]9.1 fL8.1 - 13.5 fLBON [facility] HEALTHPlatelets (Bld) [#/Vol]145 10*3/uLBON [facility] HEALTHRBC (Bld) [#/Vol]2.90 10*6/uLLow4.21 - 5.77 m/uLBON [facility] HEALTHSegmented neutrophils/100 WBC (Bld)3.48 %[facility] MEDICAL CENTERWBC other (Bld) [#/Vol] 6.0B[facility] HEALTHCOVID-19, Rapidon 09-07-2022 SARS-CoV-2 (COVID-19) RdRp gene POLO+probe Ql (Resp)Not detectedNot DetectedB[facility] MERCY HEALTHComment on above: Rapid NAAT: The specimen is [...] management decisions. Fact sheet for Healthcare Providers: https://www.fda.gov/media/244681/download Fact sheet for Patients: https://www.fda.gov/media/616789/download Methodology: Isothermal Nucleic Acid Amplification Specimen Description.NASOPHARYNGEAL SWABBON [facility]SING HOMEComprehensive Metabolic Panel w/ Reflex to MGon [id number] [Mass/Vol]3.0 g/dLLow3.5 - 5.2 g/dLBON [facility] TRUMBULLAlbumin/Globulin [Mass ratio]1.0 {ratio}1.0 - 2.5BON [facility] HEALTHALP [Catalytic activity/Vol]88 U/L40 - 129 U/LBON [facility] HEALTHALT [Catalytic activity/Vol]23 U/L5 - 41 U/LBON [facility] TRUMBULLAnion gap [Moles/Vol]7 mmol/LLow9 - 17 mmol/LBON [facility] HEALTHAST [Catalytic activity/Vol]24 U/L NINF - 40 U/LBON [facility] HEALTHBilirubin [Mass/Vol]0.3 mg/dL0.3 - 1.2 mg/dLBON [facility] HEALTHCalcium [Mass/Vol]8.1 mg/dLLow8.6 - 10.4 mg/dLBON [facility] HEALTHChloride [Moles/Vol]109 mmol/LHigh98 - 107 mmol/LBON [facility] HEALTHCO2 [Moles/Vol]26 mmol/L20 - 31 mmol/LBON [facility] Creatinine [Mass/Vol]0.81 mg/dL0.70 - 1.20 mg/dLBON [facility] TRUMBULLGFR/1.73 sq M.predicted MDRD (S/P/Bld) [Vol rate/Area]- PINFBON [facility] Comment on above: These results are not [...] therapy that affects renal tubular secretion. Glucose [Mass/Vol]97 mg/dL70 - 99 mg/dLBON [facility] TRUMBULLInterpretation and review of laboratory resultsAbnormalCJW MEDICAL CENTERPotassium [Moles/Vol]3.7 mmol/L3.7 - 5.3 mmol/LBON [facility] TRUM[facility]ULLProtein [Mass/Vol] 5.9 g/dLLow6.4 - 8.3 g/dLBON [facility] TRUMBULLSodium [Moles/Vol]142 mmol/L135 - 144 mmol/LBON [facility] TRUMBULLUrea nitrogen [Mass/Vol]14 mg/dL8 - 23 mg/dLBON [facility] TRUMBULLUrea nitrogen/Creatinine [Mass ratio]17 mg/mg9 - 20 BON [facility] NURSING HOMEEKG Rhythm Stripon [id number] [facility] GIL[facility]ERTXR ABDOMEN (2 VIEWS)on 85-10-4182Gtzsbugan gas in small and large bowel loops, suggesting resolving small-bowel obstruction. MHPN RIS CONSOLIDATEDEXAMINATION: 2 XRAY VIEWS OF THE ABDOMEN 09/07/2022 7:35 am COMPARISON: Abdominal radiographs dated 09/06/2022 and 09/05/2022 HISTORY: ORDERING SYSTEM PROVIDED HISTORY: sbo TECHNOLOGIST PROVIDED HISTORY: Sbo FINDINGS: There is scattered gas in small and large bowel loops. No abnormal bowel distention appreciated on the current radiographs. Visualized lung bases are clear. MHPN RIS CONSOLIDATEDKristan Bee DO - 09/07/2022 EXAMINATION: 2 XRAY [...] large bowel loops, suggesting resolving small-bowel obstruction. [facility]ENTERRadiology Study observation (narrative)[facility] auto differentialon [id number] (Bld) [#/Vol]0.04 10*3/uLBON [facility] TRUMBULLBasophils/100 WBC (Bld)1 %0 - 2 %[facility] CENTEREosinophils (Bld) [#/Vol]0.11 10*3/uLBON [facility] TRUMBULLEosinophils/100 WBC (Bld)2 %1 - 4 %[facility] MED[facility] CENTERErythrocyte distribution width (RBC) [Ratio]12.7 %11.8 - 14.4 %[facility] Hematocrit (Bld) [Volume fraction]29.8 %Low40.7 - 50.3 %[facility] Hemoglobin (Bld) [Mass/Vol]9.8 g/dLLow13.0 - 17.0 g/dLBON [facility] Immature granulocytes (Bld) [#/Vol][facility] CENTERImmature granulocytes/100 WBC (Bld)0 %0BON [facility] TRUMBULLInterpretation and review of laboratory resultsAbnormalBON [facility] TRUMBULLLymphocytes/100 WBC (Bld)20 %Low24 - 43 %[facility] MEDICAL CENTERLymphocytes/100 WBC (Bld)1.36 %[facility]OSPITALH (RBC) [Entitic mass]33.0 pg25.2 - 33.5 pgSHENANDOAH MEMORIAL HOSPITALHC (RBC) [Mass/Vol]32.9 g/dL28.4 - 34.8 g/dLB[facility] HEALTHMCV (RBC) [Entitic vol]100.3 fL82.6 - 102.9 fLBON [facility]CY HEALTHMonocytes/100 WBC (Bld)9 %3 - 12 %[facility] HEALTHMonocytes/100 WBC (Bld)0.62 %[facility] HEALTHNeutrophils/100 WBC (Bld)69 %High36 - 65 %[facility] HEALTHNucleated RBC/100 WBC (Bld) [Ratio]0.0 %0.0 per 100 WBCBON [facility]RS MERCY HEALTHPlatelet mean volume (Bld) [Entitic vol]9.6 fL8.1 - 13.5 fLBON [facility]RS MERCY HEALTHPlatelets (Bld) [#/Vol]132 10*3/uLLowBON [facility]RS MERCY HEALTHRBC (Bld) [#/Vol]2.97 10*6/uLLow4.21 - 5.77 m/uLBON [facility] HEALTHSegmented neutrophils/100 WBC (Bld)4.79 %[facility] HEALTHWBC other (Bld) [#/Vol] 6.9B[facility] HEALTHBON SEC[facility]ITALY HEALTHComprehensive Metabolic Panel w/ Reflex to MGon [id number] [Mass/Vol]3.2 g/dLLow3.5 - 5.2 g/dLB[facility] HEALTHAlbumin/Globulin [Mass ratio]1.0 {ratio}1.0 - 2.5B[facility] HEALTHALP [Catalytic activity/Vol]91 U/L40 - 129 U/LBON [facility] HEALTHALT [Catalytic activity/Vol]16 U/L5 - 41 U/LB[facility] HEALTHAnion gap [Moles/Vol]9 mmol/L9 - 17 mmol/LBON [facility]CY HEALTHAST [Catalytic activity/Vol]20 U/LNINF - 40 U/LBON [facility] HEALTHBilirubin [Mass/Vol]0.7 mg/dL0.3 - 1.2 mg/dLBON [facility] HEALTHCalcium [Mass/Vol]8.3 mg/dLLow8.6 - 10.4 mg/dLB[facility] HEALTHChloride [Moles/Vol]108 mmol/LHigh98 - 107 mmol/LBON [facility] TRUMBULLCO2 [Moles/Vol]25 mmol/L20 - 31 mmol/LBON [facility] TRUM[facility]ULLCreatinine [Mass/Vol]0.68 mg/dLLow0.70 - 1.20 mg/dLBON [facility] TRUM[facility]ULLGFR/1.73 sq M.predicted MDRD (S/P/Bld) [Vol rate/Area]- PINFBON [facility] TRUMBULLComment on above: These results are not intended [...] therapy that affects renal tubular secretion. Glucose [Mass/Vol]84 mg/dL70 - 99 mg/dLBON [facility] TRUMBULLInterpretation and review of laboratory resultsAbnormalCJW MEDICAL CENTERPotassium [Moles/Vol]3.6 mmol/LLow3.7 - 5.3 mmol/LBON [facility] TRUM[facility]ULLProtein [Mass/Vol]6.5 g/dL6.4 - 8.3 g/dLBON [facility] TRUMBULLSodium [Moles/Vol]142 mmol/L135 - 144 mmol/LBON [facility] TRUMBULLUrea nitrogen [Mass/Vol]19 mg/dL8 - 23 mg/dLBON [facility] TRUMBULLUrea nitrogen/Creatinine [Mass ratio]28 mg/mg High9 - 20BON [facility] HOMEEKG Rhythm Stripon [id number] HEALTH EAST [facility] - GILBERTXR ABDOMEN (KUB) (SINGLE AP VIEW)on [id number]/resolving small bowel obstruction MHPN RIS CONSOLIDATEDEXAMINATION: ONE SUPINE XRAY VIEW(S) OF THE ABDOMEN [...] changes of the spine. Small pelvic phleboliths. MHPN Anton Lemus MD - 09/06/2022 EXAMINATION: ONE SUPINE XRAY [...] pelvic phleboliths. IMPRESSION: Improving/resolving small bowel obstruction [facility] CENTEREvolve PartnersSELECT MEDICAL [facility], AVONRadiology Study observation (narrative)[facility] Carbon BlackXR ABDOMEN (KUB) (SINGLE AP VIEW)Ordered By: Anton Dubon on [id number] [facility]ONA STATE HOSPITALHipLogic Work Phone: cbc auto differentialon [id number] (Bld) [#/Vol]0.03 10*3/uLBON [facility] TRUMBULLBasophils/100 WBC (Bld)0 %0 - 2 %[facility] CENTEREosinophils (Bld) [#/Vol][facility] [employer] Black Eosinophils/100 WBC (Bld)0 %Low1 - 4 %[facility] Carbon BlackErythrocyte distribution width (RBC) [Ratio]13.0 %11.8 - 14.4 %[facility] [employer] Black Hematocrit (Bld) [Volume fraction]32.0 %Low40.7 - 50.3 %[facility] Carbon Black Hemoglobin (Bld) [Mass/Vol]10.5 g/dLLow13.0 - 17.0 g/dLBON [facility]ITALSURGICAL SPECIALTY [facility] HEALTH Immature granulocytes (Bld) [#/Vol]0.04 10*3/uLBON [facility] CENTERImmature granulocytes/100 WBC (Bld)0 %0BON SECSURGICAL SPECIALTY CENTER HEALTHInterpretation and review of laboratory resultsAbnormalBON [facility] MEDICAL CENTERLymphocytes/100 WBC (Bld)11 %Low24 - 43 %[facility] MEDICAL CENTERLymphocytes/100 WBC (Bld)1.34 %BON SECSOUTHERN OHIO MEDICAL CENTERH (RBC) [Entitic mass]32.7 pg25.2 - 33.5 pgBON SECSOUTHERN OHIO MEDICAL CENTERHC (RBC) [Mass/Vol]32.8 g/dL28.4 - 34.8 g/dLBON SECSOUTHERN OHIO MEDICAL CENTERV (RBC) [Entitic vol]99.7 fL82.6 - 102.9 fLBON [facility] MEDICAL CENTERMonocytes/100 WBC (Bld)8 %3 - 12 %[facility] SECOU[facility] CENTERMonocytes/100 WBC (Bld)1.01 %[facility] SECOHIOHEALTH PICKERINGTON METHODIST HOSPITALNeutrophils/100 WBC (Bld)80 %High36 - 65 %BON SECOHIOHEALTH PICKERINGTON METHODIST HOSPITALNucleated RBC/100 WBC (Bld) [Ratio]0.0 %0.0 per 100 WBCBON SECOHIOHEALTH PICKERINGTON METHODIST HOSPITALPlatelet mean volume (Bld) [Entitic vol]9.2 fL8.1 - 13.5 fLBON SECSURGICAL SPECIALTY CENTER HEALTHPlatelets (Bld) [#/Vol]147 10*3/uLBON [facility] HEALTHRBC (Bld) [#/Vol]3.21 10*6/uLLow4.21 - 5.77 m/uLBON [facility] TRUMBULLSegmented neutrophils/100 WBC (Bld)9.62 %HighBON SECOURS ADAMS COUNTY REGIONAL MEDICAL CENTERWBC other (Bld) [#/Vol]12.1HighBON SECQUENTIN N. [facility] HEALTHComprehensive Metabolic Panel w/ Reflex to MGon [id number] [Mass/Vol]3.7 g/dL3.5 - 5.2 g/dLBON SECOHIOHEALTH PICKERINGTON METHODIST HOSPITALAlbumin/Globulin [Mass ratio]1.2 {ratio}1.0 - 2.5BON SECSNOQUALMIE VALLEY HOSPITALGotuit HEALTHALP [Catalytic activity/Vol]98 U/L40 - 129 U/LBON [facility] HOSPITALY HEALTHALT [Catalytic activity/Vol]12 U/L5 - 41 U/LBON [facility]SUR[facility]TY [facility] HEALTH Anion gap [Moles/Vol]12 mmol/L9 - 17 mmol/LBON SECS[facility]ENTER HEALTHAST [Catalytic activity/Vol]13 U/LNINF - 40 U/LBON [facility] HEALTHBilirubin [Mass/Vol]0.8 mg/dL0.3 - 1.2 mg/dLBON SECS[facility] HEALTHCalcium [Mass/Vol]8.7 mg/dL8.6 - 10.4 mg/dLBON SECSUR[facility] HEALTHChloride [Moles/Vol]104 mmol/L98 - 107 mmol/LBON [facility] HEALTHCO2 [Moles/Vol]25 mmol/L20 - 31 mmol/LBON [facility] HEALTHCreatinine [Mass/Vol]0.85 mg/dL0.70 - 1.20 mg/dLBON [facility] TRUM[facility]ULLGFR/1.73 sq M.predicted MDRD (S/P/Bld) [Vol rate/Area]- PINFBON [facility] TRUMBULLComment on above: These results are not intended [...] therapy that affects renal tubular secretion. Glucose [Mass/Vol]94 mg/dL70 - 99 mg/dLBON [facility] TRUM[facility]ULLInterpretation and review of laboratory resultsAbnormalBON SECSUR[facility]ENTER HEALTHPotassium [Moles/Vol]3.7 mmol/L3.7 - 5.3 mmol/LBON [facility] HEALTHProtein [Mass/Vol] 6.8 g/dL6.4 - 8.3 g/dLBON [facility] TRUMBULLSodium [Moles/Vol]141 mmol/L135 - 144 mmol/LBON [facility] HEALTHUrea nitrogen [Mass/Vol]19 mg/dL8 - 23 mg/dL BON [facility]ITALY HEALTHUrea nitrogen/Creatinine [Mass ratio]22 mg/mgHigh9 - 20 [facility] CENTEREKG Rhythm Stripon 09-05-2022 [facility] ABD[facility] (2 VIEWS)on . Persistent small bowel obstruction. [facility] RIS CONSOLIDATEDEXAMINATION: TWO XRAY VIEWS OF THE ABDOMEN 09/05/2022 [...] Atelectasis is noted in the lung bases. [facility] Joce Lee MD - 09/05/2022 EXAMINATION: TWO XRAY VIEWS [...] bases. IMPRESSION: 1. Persistent small bowel obstruction. [facility] MED[facility] CENTERRadiology Study observation (narrative)[facility] CENTERXR ABDOMEN (2 VIEWS)Ordered By: Joce Rowe on [id number] [facility] Work Phone: CBC auto differentialon [id number] (Bld) [#/Vol]0.06 10*3/uLCJW MEDICAL CENTERBasophils/100 WBC (Bld)1 %0 - 2 %[facility] CENTEREosinophils (Bld) [#/Vol]0.05 10*3/uLBON [facility] TRUMBULLEosinophils/100 WBC (Bld)0 %Low1 - 4 %[facility] CENTERErythrocyte distribution width (RBC) [Ratio]13.2 %11.8 - 14.4 %[facility] Hematocrit (Bld) [Volume fraction]33.4 %Low40.7 - 50.3 %[facility] Hemoglobin (Bld) [Mass/Vol]11.1 g/dLLow13.0 - 17.0 g/dLBON [facility] Immature granulocytes (Bld) [#/Vol]0.05 10*3/uLBON [facility] TRUM[facility]ULLImmature granulocytes/100 WBC (Bld)0 %0C[facility] MEDICAL CENTERInterpretation and review of laboratory resultsAbnormalBON [facility] TRUM[facility]ULLLymphocytes/100 WBC (Bld)13 %Low24 - 43 %[facility] MEDICAL CENTERLymphocytes/100 WBC (Bld)1.71 %[facility]NDO[facility]ORIAL HOSPITALH (RBC) [Entitic mass]32.7 pg25.2 - 33.5 pgBON [facility] HOSPITALHC (RBC) [Mass/Vol]33.2 g/dL28.4 - 34.8 g/dLBON [facility] TRUMBULLMCV (RBC) [Entitic vol]98.5 fL82.6 - 102.9 fLCJW MEDICAL CENTERMonocytes/100 WBC (Bld)7 %3 - 12 %[facility] CENTERMonocytes/100 WBC (Bld)0.89 %[facility] CENTERNeutrophils/100 WBC (Bld)79 %High36 - 65 %[facility] MEDICAL CENTERNucleated RBC/100 WBC (Bld) [Ratio]0.0 %0.0 per 100 WBCCJW MEDICAL CENTERPlatelet mean volume (Bld) [Entitic vol]9.5 fL8.1 - 13.5 fLCJW MEDICAL CENTERPlatelets (Bld) [#/Vol]170 10*3/uLBON [facility] TRUMBULLRBC (Bld) [#/Vol]3.39 10*6/uLLow4.21 - 5.77 m/uLBON [facility] TRUM[facility]ULLSegmented neutrophils/100 WBC (Bld)10.07 %Hospital Corporation of AmericaWBC other (Bld) [#/Vol]12.8HSentara RMH Medical CenterComprehensive Metabolic Panel w/ Reflex to MGon [id number] [Mass/Vol]3.7 g/dL3.5 - 5.2 g/dLBON [facility] TRUM[facility]ULLAlbumin/Globulin [Mass ratio]1.2 {ratio}1.0 - 2.5BON [facility]OS[facility] - TRUMBULLALP [Catalytic activity/Vol]110 U/L40 - 129 U/LBON [facility]OS[facility] TRUMBULLALT [Catalytic activity/Vol]13 U/L5 - 41 U/LBON [facility] Anion gap [Moles/Vol]11 mmol/L9 - 17 mmol/LBON [facility] HOS[facility] - TRUMBULLAST [Catalytic activity/Vol]13 U/LNINF - 40 U/LBON [facility] TRUMBULLBilirubin [Mass/Vol]0.6 mg/dL0.3 - 1.2 mg/dLBON [facility] TRUM[facility]ULLCalcium [Mass/Vol]8.8 mg/dL8.6 - 10.4 mg/dLBON [facility] TRUMBULLChloride [Moles/Vol]106 mmol/L98 - 107 mmol/LBON [facility] TRUMBULLCO2 [Moles/Vol]26 mmol/L20 - 31 mmol/LBON [facility] TRUM[facility]ULLCreatinine [Mass/Vol]0.79 mg/dL0.70 - 1.20 mg/dLBON [facility] TRUM[facility]ULLGFR/1.73 sq M.predicted MDRD (S/P/Bld) [Vol rate/Area]- PINFBCARILION GILES MEMORIAL HOSPITALComment on above: These results are not intended [...] therapy that affects renal tubular secretion. Glucose [Mass/Vol]90 mg/dL70 - 99 mg/dLBON [facility] MERCY HEALTHInterpretation and review of laboratory resultsAbnormalCJW MEDICAL CENTERPotassium [Moles/Vol]3.8 mmol/L3.7 - 5.3 mmol/LBON [facility]UM[facility]ULLProtein [Mass/Vol] 6.9 g/dL6.4 - 8.3 g/dLBON [facility] TRUMBULLSodium [Moles/Vol]143 mmol/L135 - 144 mmol/LBON [facility] TRUMBULLUrea nitrogen [Mass/Vol]21 mg/dL8 - 23 mg/dL [facility] MEDICAL CENTERUrea nitrogen/Creatinine [Mass ratio]27 mg/mgHigh9 - 20 [facility] CENTEREKG Rhythm Stripon [id number] [facility] HospitalXR ABDOMEN (2 VIEWS)on 29-15-0757Sj change in gaseous distension in the intestinal tract. NG tube terminates in the stomach. [facility] CONSOLIDATEDEXAMINATION: TWO XRAY VIEWS OF THE ABDOMEN 09/04/2022 10:22 am COMPARISON: 03 September 2021 HISTORY: ORDERING SYSTEM PROVIDED HISTORY: sbo TECHNOLOGIST PROVIDED HISTORY: sbo FINDINGS: AP portable view of the abdomen time stamped at 1029 hours demonstrates an intestinal tube terminating in the stomach, unchanged. Gaseous distension of small bowel and colon remains without significant interval change. No organomegaly or free air. [facility] Abbey Miner MD - 09/04/2022 EXAMINATION: TWO XRAY VIEWS [...] tract. NG tube terminates in the stomach. [facility]ENTERRadiology Study observation (narrative)[facility] MEDICAL CENTERCBC auto differentialon [id number] (Bld) [#/Vol]0.04 10*3/uLBON [facility] HOSPITALOURS [facility] CENTERBasophils/100 WBC (Bld)0 %0 - 2 %[facility] CENTEREosinophils (Bld) [#/Vol]0.09 10*3/uLBON [facility] MEDICAL CENTEREosinophils/100 WBC (Bld)1 %1 - 4 %[facility] CENTERErythrocyte distribution width (RBC) [Ratio]13.2 %11.8 - 14.4 %[facility] Hematocrit (Bld) [Volume fraction]36.8 %Low40.7 - 50.3 %[facility] Hemoglobin (Bld) [Mass/Vol]12.1 g/dLLow13.0 - 17.0 g/dLBON [facility] Immature granulocytes (Bld) [#/Vol]0.03 10*3/uLBON [facility] - TRUMBULLImmature granulocytes/100 WBC (Bld)0 %0C[facility] MEDICAL CENTERInterpretation and review of laboratory resultsAbnormalBON [facility] TRUMBULLLymphocytes/100 WBC (Bld)20 %Low24 - 43 %[facility] MEDICAL CENTERLymphocytes/100 WBC (Bld)2.31 %[facility]ITALH (RBC) [Entitic mass]32.4 pg25.2 - 33.5 pgBON MER[facility] FAIRFIELD HOSPITALHC (RBC) [Mass/Vol]32.9 g/dL28.4 - 34.8 g/dLBON MER[facility] FAIRFIELD HOSPITALV (RBC) [Entitic vol]98.4 fL82.6 - 102.9 fLCJW MEDICAL CENTERMonocytes/100 WBC (Bld)7 %3 - 12 %[facility] CENTERMonocytes/100 WBC (Bld)0.83 %[facility] CENTERNeutrophils/100 WBC (Bld)72 %High36 - 65 %[facility]JW MEDICAL CENTERNucleated RBC/100 WBC (Bld) [Ratio]0.0 %0.0 per 100 WBCCJW MEDICAL CENTERPlatelet mean volume (Bld) [Entitic vol]9.5 fL8.1 - 13.5 fLINOVA ALEXANDRIA HOSPITAL HEALTHPlatelets (Bld) [#/Vol]206 10*3/uLBON [facility] SPECIALTY HOSPITAL - TRUMBULLRBC (Bld) [#/Vol]3.74 10*6/uLLow4.21 - 5.77 m/uLBON [facility] TRUMBULLSegmented neutrophils/100 WBC (Bld)8.20 %HighCJW MEDICAL CENTERWBC other (Bld) [#/Vol]11.5HighBON [facility]ONA [facility] HOSPITALOURS [facility] HOSPITALCT ABDOMEN PELVIS W IV CONTRAST Additional Contrast? Noneon [id number] compatible with distal small bowel obstruction with suspected transition point in the right lower quadrant. No pneumatosis or free air. MHPN RIS CONSOLIDATEDEXAMINATION: CT OF THE ABDOMEN AND PELVIS WITH [...] bladder is mildly distended but otherwise unremarkable. Peritoneum/Retroperitoneum: The abdominal aorta is normal in caliber. There is no retroperitoneal or mesenteric lymphadenopathy. Bones/Soft Tissues: There is no acute or suspicious osseous abnormality. Visualized superficial soft tissues are within normal limits. PN RIS Kristan Mckinney, DO - 09/03/2022 EXAMINATION: CT OF THE [...] bladder is mildly distended but otherwise unremarkable. Peritoneum/Retroperitoneum: The abdominal aorta is normal in caliber. There is no retroperitoneal or mesenteric lymphadenopathy. Bones/Soft Tissues: There is no acute or suspicious osseous abnormality. Visualized superficial soft tissues are within normal limits. IMPRESSION: Findings compatible with distal small bowel obstruction with suspected transition point in the right lower quadrant. No pneumatosis or free air. BON [facility]CT ABDOMEN PELVIS W IV CONTRAST Additional Contrast? NoneOrdered By: Kristan Bee on [id number] [facility] Work Phone: Comprehensive Metabolic Panel w/ Reflex to MGon [id number] [Mass/Vol]3.9 g/dL3.5 - 5.2 g/dLBON [facility]ONA STATE HOSPITALHipLogic Albumin/Globulin [Mass ratio]1.2 {ratio}1.0 - 2.5B[facility] HOSPITALHipLogicALP [Catalytic activity/Vol]124 U/L40 - 129 U/LBON [facility] HOSPITALHipLogicALT [Catalytic activity/Vol]19 U/L5 - 41 U/LB[facility]OSPITALHipLogicAnion gap [Moles/Vol]12 mmol/L9 - 17 mmol/LBON [facility]OSPITALHipLogicAST [Catalytic activity/Vol]17 U/LNINF - 40 U/LBON [facility]OSPITALHipLogicBilirubin [Mass/Vol]0.4 mg/dL0.3 - 1.2 mg/dLBON ARIZONA STATE HOSPITALHipLogicCalcium [Mass/Vol]9.3 mg/dL8.6 - 10.4 mg/dLBON ARIZONA STATE HOSPITALIndiaHomes [facility]ULLChloride [Moles/Vol]102 mmol/L98 - 107 mmol/L [facility] PortafareCO2 [Moles/Vol]31 mmol/L20 - 31 mmol/LBON [facility] HOSPITALHipLogicCreatinine [Mass/Vol]0.83 mg/dL0.70 - 1.20 mg/dLBON ARIZONA STATE HOSPITALHipLogic GFR/1.73 sq M.predicted MDRD (S/P/Bld) [Vol rate/Area]- PINFBON [facility] TRUMBULLComment on above: These results are not intended [...] therapy that affects renal tubular secretion. Glucose [Mass/Vol]103 mg/tFHpco26 - 99 mg/dLBON [facility] Interpretation and review of laboratory resultsAbnormalCJW MEDICAL CENTER Potassium [Moles/Vol]3.2 mmol/LLow3.7 - 5.3 mmol/LBON [facility] Protein [Mass/Vol]7.2 g/dL6.4 - 8.3 g/dLBON [facility] TRUMBULLSodium [Moles/Vol]145 mmol/XOutp668 - 144 mmol/LBON [facility] TRUMBULLUrea nitrogen [Mass/Vol]27 mg/dLHigh8 - 23 mg/dLBON [facility] TRUMBULLUrea nitrogen/Creatinine [Mass ratio]33 mg/mgHigh9 - 20BON [facility] HOMEEKG Rhythm Stripon 44-41-4569WQKKHMEMORIAL HOSPITAL NORTHMagnesiumon 36-50-6341Xvkwtwxdf [Mass/Vol]1.7 mg/dL1.6 - 2.6 mg/dLBON FALL RIVER HOSPITALXR ABDOMEN (KUB) (SINGLE AP VIEW)on 09-03-2022 Preferential distention of small-bowel loops compatible with partial small bowel obstruction, degree of distention unchanged from prior examination. Contrast material incidentally noted in the bladder nodule from prior CT. RECOMMENDATION: Continued radiographic monitoring. [facility] RIS CONSOLIDATEDEXAMINATION: ONE SUPINE XRAY VIEW(S) OF THE ABDOMEN [...] No organomegaly or free air is noted. [facility] Abbey Miner MD - 09/03/2022 EXAMINATION: ONE SUPINE XRAY [...] from prior CT. RECOMMENDATION: Continued radiographic monitoring. [facility] [employer] [facility] TRUMBULLRadiology Study observation (narrative)CRITICAL ACCESS HOSPITALNeRRe TherapeuticsXR ABDOMEN (KUB) (SINGLE AP VIEW)Ordered By: Abbey Ochoa on 21-56-9799ZLG [facility] [employer] Work Phone: XR ABDOMEN FOR NG/OG/NE TUBE PLACEMENTon 09-03-2022 Satisfactory positioning of the enteric tube with distal tip and side hole overlying proximal stomach. [facility] CONSOLIDATEDEXAMINATION: ONE SUPINE XRAY VIEW(S) OF THE ABDOMEN [...] stomach and visualized upper abdominal bowel loops. [facility] Kristan Mckinney, DO - 09/03/2022 EXAMINATION: ONE SUPINE XRAY [...] tip and side hole overlying proximal stomach. [facility]ENTERRadiology Study observation (narrative)CJW MEDICAL CENTERSatisfactory position of the enteric tube. [facility] CONSOLIDATEDEXAMINATION: ONE SUPINE XRAY VIEW(S) OF THE ABDOMEN [...] and visualized upper abdominal small bowel loops. [facility] Kristan Mckinney, DO - 09/03/2022 EXAMINATION: ONE SUPINE XRAY [...] IMPRESSION: Satisfactory position of the enteric tube. [facility] CENTERCBC with Auto Differentialon 34-51-5360Tmhjvkjwq (Bld) [#/Vol]0.04 10*3/uLCJW MEDICAL CENTER Basophils/100 WBC (Bld)0 %0 - 2 %[facility]ITALY HEALTHEosinophils (Bld) [#/Vol][facility] HEALTHEosinophils/100 WBC (Bld)0 %Low1 - 4 %[facility] CENTERErythrocyte distribution width (RBC) [Ratio]13.1 %11.8 - 14.4 %[facility] HEALTHHematocrit (Bld) [Volume fraction]41.5 %40.7 - 50.3 %[facility] MEDICAL CENTERHemoglobin (Bld) [Mass/Vol]13.7 g/dL13.0 - 17.0 g/dLBON [facility] MEDICAL CENTERImmature granulocytes (Bld) [#/Vol]0.04 10*3/uLBON [facility] MED[facility] CENTERImmature granulocytes/100 WBC (Bld)0 %0BON [facility]ALTH Interpretation and review of laboratory resultsAbnormalBON [facility] Lymphocytes/100 WBC (Bld)9 %Low24 - 43 %[facility] SECOHIOHEALTH PICKERINGTON METHODIST HOSPITALLymphocytes/100 WBC (Bld)1.33 %[facility] SECSOUTHERN OHIO MEDICAL CENTERH (RBC) [Entitic mass]32.3 pg25.2 - 33.5 pgBON SECOURS [facility] MEDICAL CENTERHC (RBC) [Mass/Vol]33.0 g/dL28.4 - 34.8 g/dLBON SECSOUTHERN OHIO MEDICAL CENTERV (RBC) [Entitic vol]97.9 fL82.6 - 102.9 fLHONORHEALTH [facility]OTTSDALE OSBORN [facility] SECOU[facility] CENTERMonocytes/100 WBC (Bld)5 %3 - 12 %[facility] SECSURGICAL SPECIALTY [facility]ENTER HEALTH Monocytes/100 WBC (Bld)0.72 %[facility] SECOURS [facility] MEDICAL CENTERNeutrophils/100 WBC (Bld)86 %High36 - 65 %[facility] SECOHIOHEALTH PICKERINGTON METHODIST HOSPITALNucleated RBC/100 WBC (Bld) [Ratio]0.0 % 0.0 per 100 WBCBON SECSURGICAL SPECIALTY CENTER HEALTHPlatelet mean volume (Bld) [Entitic vol] 9.1 fL8.1 - 13.5 fLBON [facility] HEALTHPlatelets (Bld) [#/Vol]245 10*3/uLBON [facility] HEALTHRBC (Bld) [#/Vol]4.24 10*6/uL4.21 - 5.77 m/uLBON [facility] TRUMBULLSegmented neutrophils/100 WBC (Bld)12.71 %HighCJW MEDICAL CENTERWBC other (Bld) [#/Vol]14.9HighCJW MEDICAL CENTERBON [facility] TRUMBULLCMPon 82-58-7155Rneflic [Mass/Vol]4.7 g/dL3.5 - 5.2 g/dLBON [facility] TRUMBULLAlbumin/Globulin [Mass ratio]1.4 {ratio}1.0 - 2.5BON [facility] ALP [Catalytic activity/Vol]159 U/LHigh40 - 129 U/LBON [facility] TRUM[facility]ULLALT [Catalytic activity/Vol]24 U/L5 - 41 U/LBON [facility] TRUMBULLAnion gap [Moles/Vol]12 mmol/L9 - 17 mmol/LBON [facility]TY HOS[facility] - TRUMBULLAST [Catalytic activity/Vol]20 U/LNINF - 40 U/LBON [facility] TRUMBULLBilirubin [Mass/Vol]0.3 mg/dL0.3 - 1.2 mg/dLBON [facility] TRUMBULLCalcium [Mass/Vol]9.6 mg/dL8.6 - 10.4 mg/dLBON [facility] TRUMBULLChloride [Moles/Vol]99 mmol/L98 - 107 mmol/L [facility] MEDICAL CENTERCO2 [Moles/Vol]31 mmol/L20 - 31 mmol/LBON [facility] TRUMBULLCreatinine [Mass/Vol]1.15 mg/dL0.70 - 1.20 mg/dLBON [facility] GFR/1.73 sq M.predicted MDRD (S/P/Bld) [Vol rate/Area]- PINFBON [facility] TRUMBULLComment on above: These results are not intended [...] therapy that affects renal tubular secretion. Glucose [Mass/Vol]113 mg/gUXgho03 - 99 mg/dLBON [facility] Interpretation and review of laboratory resultsAbnormalBON [facility] Potassium [Moles/Vol]3.7 mmol/L3.7 - 5.3 mmol/LBON [facility] TRUM[facility]ULLProtein [Mass/Vol]8.1 g/dL6.4 - 8.3 g/dLBON [facility] TRUMBULLSodium [Moles/Vol]142 mmol/L135 - 144 mmol/LBON [facility] TRUMBULLUrea nitrogen [Mass/Vol]29 mg/dL High8 - 23 mg/dLBON [facility] TRUMBULLUrea nitrogen/Creatinine [Mass ratio]25 mg/mgHigh9 - 20BON [facility] TRUMBULLCT ABDOMEN PELVIS W IV CONTRAST Additional Contrast? Noneon 33-40-0871Ebxlhoymc Study observation (narrative)BON [facility] TRUMBULLLactic Acidon 40-22-1344Rrrqdbe (BldV) [Moles/Vol]1.3 mmol/L 0.5 - 2.2 mmol/LBON [facility]URSING HOMELipaseon 02-17-4460Prbbji [Catalytic activity/Vol]27 U/L13 - 60 U/LBON [facility]ULLNo Panel Informationon 59-10-4361XVK [facility]ULLXR ABDOMEN FOR NG/OG/NE TUBE PLACEMENTon 65-74-8428Ooisqibos Study observation (narrative)CJW MEDICAL CENTERCHEMISTRYOrdered By: Sandip Yuong on 14-44-8950Csrhpyb [Mass/Vol]102 mg/hVPllm37 - 99 mg/dLFTMC POC SubsectionComment on above:Result Comment: Cleaned MeterPOC Device [id number] Interpretation CodeFTMC POC SubsectionPOC User [id number] Interpretation CodeFTMC POC Subsection POC UsernameTANNER, KAYLEEInvalid Interpretation CodeFTMC POC SubsectionGlucose [Mass/Vol]93 mg/vDIbeflf34 - 99 mg/dLFTMC POC SubsectionComment on above:Result Comment: Notified RN/MDPOC Device [id number] Interpretation CodeFTMC POC SubsectionPOC User [id number] Interpretation CodeFTMC POC Subsection POC UsernameHORNING, TORIInvalid Interpretation CodeFTMC POC SubsectionCHEMISTRY Ordered By: SYSTEM SYSTEM on 87-91-2808Lhoay gap [Moles/Vol]9 mmol/LNormal6 - 16 mEq/LFTMC RemisolCalcium [Mass/Vol]8.0 mg/dLLow8.9 - 11.1 mg/dLFTMC Remisol Chloride [Moles/Vol]105 mmol/QBzlgma116 - 111 mmol/LFTMC RemisolCO2 [Moles/Vol] 26 mmol/CYkoavf85 - 31 mmol/LFTMC RemisolCreatinine [Mass/Vol]0.9 mg/dLNormal0.5 - 1.3 mg/dLFTMC RemisolGFR/1.73 sq M.predicted among blacks MDRD (S/P/Bld) [Vol rate/Area]mL/min/1.73 d1Ayioiy>=59mL/min/1.73 m2FT Chem SGFR/1.73 sq M.predicted among non-blacks MDRD (S/P/Bld) [Vol rate/Area]mL/min/1.73 f5Tsmgph >=59mL/min/1.73 m2FT Chem SGlucose [Mass/Vol]98 mg/pPJfuyql97 - 199 mg/dLFT RemisolMagnesium [Mass/Vol]1.6 mg/dLNormal1.3 - 2.4 mg/dLFTMC RemisolPotassium [Moles/Vol]4.3 mmol/LNormal3.5 - 5.3 mmol/LFTMC RemisolSodium [Moles/Vol]136 mmol/FVvergi855 - 145 mmol/LFTMC RemisolUrea nitrogen [Mass/Vol]11 mg/dLNormal5 - 21 mg/dLFT RemisolUrea nitrogen/Creatinine [Mass ratio]12 mg/hfDchgma59 - 20 [facility] RemisolHEMATOLOGYOrdered By: SYSTEM SYSTEM on 97-56-4256Wflsbzdvk/100 WBC (Bld)0.7 %Normal0.0 - 2.0 %[facility] HemeAutoSSBasophils/Leukocytes Auto (Bld) [Pure # fraction]0.0 E9/LNormal0.0 - 0.2 E9/LFTMC HemeAutoSSEosinophils/100 WBC (Bld) 8.9 %High0.0 - 8.0 %[facility] HemeAutoSSEosinophils/Leukocytes Auto (Bld) [Pure # fraction]0.5 E9/LNormal0.0 - 0.5 E9/LFTMC HemeAutoSSLymphocytes/100 WBC (Bld) 28.3 %Nezimg28.0 - 50.0 %[facility] HemeAutoSSLymphocytes/Leukocytes Auto (Bld) [Pure # fraction]1.5 E9/LNormal1.0 - 4.0 E9/LFTMC HemeAutoSSMonocytes/100 WBC (Bld) 10.7 %Normal4.0 - 14.0 %[facility] HemeAutoSSMonocytes/Leukocytes Auto (Bld) [Pure # fraction]0.6 E9/LNormal0.2 - 1.0 E9/LFTMC HemeAutoSSNeutrophils/100 WBC (Bld) 51.4 %Berrzb26.0 - 75.0 %[facility] HemeAutoSSNeutrophils/Leukocytes Auto (Bld) [Pure # fraction]2.7 E9/LNormal2.0 - 7.5 E9/LFTMC HemeAutoSSHEMATOLOGYOrdered By: Shruthi Caballero on 12-79-4387Thtbcpiomat distribution width (RBC) [Ratio]13.5 % Jispki19.9 - 14.2 %[facility] HemeAutoSSHematocrit (Bld) [Volume fraction]30.9 %Low 37.7 - 49.0 %[facility] HemeAutoSSHemoglobin (Bld) [Mass/Vol]10.6 g/dLLow13.5 - 17.5 gm/dLFTMC HemeAutoSSMCH (RBC) [Entitic mass]33.1 neRgaklf87.0 - 34.0 pgFTMC HemeAutoSSMCHC (RBC) [Mass/Vol]34.4 g/bMUxjcls57.4 - 36.0 gm/dLFTMC HemeAutoSS MCV (RBC) [Entitic vol]96.1 nBBbralf52.0 - 100.0 fLFTMC HemeAutoSSPlatelet mean volume (Bld) [Entitic vol]7.2 fLNormal6.4 - 10.8 fLFTMC HemeAutoSSPlatelets (Bld) [#/Vol]271.0 E9/DSwfyzn846.0 - 500.0 E9/LFTMC HemeAutoSSRBC (Bld) [#/Vol] 3.2 E12/LLow4.3 - 5.9 E12/LFTMC HemeAutoSSWBC corrected for nucl RBC Auto (Bld) [#/Vol]5.3 E9/LNormal4.0 - 11.0 E9/LFTMC HemeAutoSSCHEMISTRYOrdered By: Lab ROPUser on 16-05-0289Wvpqzkp [Mass/Vol]103 mg/fLIwbc52 - 99 mg/dLFTMC POC SubsectionComment on above:Result Comment: Notified RN/MDPOC Device SN [id number] Interpretation CodeFTMC POC SubsectionPOC User [id number] Invalid Interpretation CodeFTMC POC SubsectionPOC UsernameGAYDISH, ELISSAInvalid Interpretation CodeFTMC POC SubsectionCHEMISTRYOrdered By: SYSTEM SYSTEM on 66-93-0653Ysktc gap [Moles/Vol]8 mmol/LNormal6 - 16 mEq/LFTMC RemisolCalcium [Mass/Vol]8.1 mg/dLLow8.9 - 11.1 mg/dLFTMC RemisolChloride [Moles/Vol]108 mmol/L Ikpbal903 - 111 mmol/LFTMC RemisolCO2 [Moles/Vol]25 mmol/QBsoghx14 - 31 mmol/L [facility] RemisolCreatinine [Mass/Vol]0.8 mg/dLNormal0.5 - 1.3 mg/dLFTMC Remisol GFR/1.73 sq M.predicted among blacks MDRD (S/P/Bld) [Vol rate/Area]mL/min/1.73 i1Uvltdk>=59mL/min/1.73 m2FT Chem SGFR/1.73 sq M.predicted among non-blacks MDRD (S/P/Bld) [Vol rate/Area]mL/min/1.73 r9Jqktqm>=59mL/min/1.73 m2FT Chem S Glucose [Mass/Vol]93 mg/kJRghiex13 - 199 mg/dLFTMC RemisolMagnesium [Mass/Vol] 1.6 mg/dLNormal1.3 - 2.4 mg/dLFTMC RemisolPotassium [Moles/Vol]4.3 mmol/LNormal 3.5 - 5.3 mmol/LFTMC RemisolSodium [Moles/Vol]137 mmol/LSxviiv476 - 145 mmol/L [facility] RemisolUrea nitrogen [Mass/Vol]9 mg/dLNormal5 - 21 mg/dLFTMC RemisolUrea nitrogen/Creatinine [Mass ratio]11 mg/jzUjeuqx01 - 20FT[facility] RemisolHEMATOLOGY Ordered By: Radio Systemes Ingenierie SYSTEM on 94-69-8691Lrjkhzlyp/100 WBC (Bld)1.0 %Normal0.0 - 2.0 %[facility] HemeAutoSSBasophils/Leukocytes Auto (Bld) [Pure # fraction]0.1 E9/L Normal0.0 - 0.2 E9/LFTMC HemeAutoSSEosinophils/100 WBC (Bld)7.4 %Normal0.0 - 8.0 %[facility] HemeAutoSSEosinophils/Leukocytes Auto (Bld) [Pure # fraction]0.4 E9/L Normal0.0 - 0.5 E9/LFTMC HemeAutoSSLymphocytes/100 WBC (Bld)25.8 %Pnkxvt33.0 - 50.0 %[facility] HemeAutoSSLymphocytes/Leukocytes Auto (Bld) [Pure # fraction]1.4 E9/L Normal1.0 - 4.0 E9/LFTMC HemeAutoSSMonocytes/100 WBC (Bld)10.0 %Normal4.0 - 14.0 %[facility] HemeAutoSSMonocytes/Leukocytes Auto (Bld) [Pure # fraction]0.6 E9/LNormal 0.2 - 1.0 E9/LFTMC HemeAutoSSNeutrophils/100 WBC (Bld)55.8 %Svzevn98.0 - 75.0 % [facility] HemeAutoSSNeutrophils/Leukocytes Auto (Bld) [Pure # fraction]3.1 E9/LNormal 2.0 - 7.5 E9/LFTMC HemeAutoSSHEMATOLOGYOrdered By: Nava Booth on 06-26-2022 Erythrocyte distribution width (RBC) [Ratio]13.1 %Ycvaws22.9 - 14.2 %[facility] HemeAutoSSHematocrit (Bld) [Volume fraction]31.8 %Low37.7 - 49.0 %[facility] HemeAutoSSHemoglobin (Bld) [Mass/Vol]10.4 g/dLLow13.5 - 17.5 gm/dLFTMC HemeAutoSSMCH (RBC) [Entitic mass]32.0 ojEfzpcf44.0 - 34.0 pgFTMC HemeAutoSSMCHC (RBC) [Mass/Vol]32.7 g/qCLoccpe79.4 - 36.0 gm/dLFTMC HemeAutoSSMCV (RBC) [Entitic vol]98.0 pRLmnmel59.0 - 100.0 fLFTMC HemeAutoSSPlatelet mean volume (Bld) [Entitic vol]6.8 fLNormal6.4 - 10.8 fLFTMC HemeAutoSSPlatelets (Bld) [#/Vol]229.0 E9/MMcsfmz829.0 - 500.0 E9/LFTMC HemeAutoSSRBC (Bld) [#/Vol]3.2 E12/LLow4.3 - 5.9 E12/LFTMC HemeAutoSSWBC corrected for nucl RBC Auto (Bld) [#/Vol]5.6 E9/LNormal4.0 - 11.0 E9/LFTMC HemeAutoSSCHEMISTRYOrdered By: SYSTEM SYSTEM on 94-32-5454Qwiid gap [Moles/Vol]8 mmol/LNormal6 - 16 mEq/LFT[facility] Remisol Calcium [Mass/Vol]7.6 mg/dLLow8.9 - 11.1 mg/dLFTMC RemisolChloride [Moles/Vol] 108 mmol/MWgruoa494 - 111 mmol/LFTMC RemisolCO2 [Moles/Vol]23 mmol/UDekfkp17 - 31 mmol/LFTMC RemisolCreatinine [Mass/Vol]0.7 mg/dLNormal0.5 - 1.3 mg/dLFTMC RemisolGFR/1.73 sq M.predicted among blacks MDRD (S/P/Bld) [Vol rate/Area] mL/min/1.73 d7Ovlswm>=59mL/min/1.73 m2[facility] Chem SGFR/1.73 sq M.predicted among non-blacks MDRD (S/P/Bld) [Vol rate/Area]mL/min/1.73 l5Lgxbcw>=59mL/min/1.[address] [facility] Chem SGlucose [Mass/Vol]105 mg/dDKnxnaf01 - 199 mg/dLFTMC RemisolPotassium [Moles/Vol]3.0 mmol/LLow3.5 - 5.3 mmol/LFTMC RemisolSodium [Moles/Vol]136 mmol/L Bkdbmv747 - 145 mmol/LFTMC RemisolUrea nitrogen [Mass/Vol]6 mg/dLNormal5 - 21 mg/dLFTMC RemisolUrea nitrogen/Creatinine [Mass ratio]9 mg/mgLow10 - 20[facility] RemisolHEMATOLOGYOrdered By: SYSTEM SYSTEM on 63-90-2892Nesoivihs/100 WBC (Bld) 0.4 %Normal0.0 - 2.0 %[facility] HemeAutoSSBasophils/Leukocytes Auto (Bld) [Pure # fraction]0.0 E9/LNormal0.0 - 0.2 E9/LFTMC HemeAutoSSEosinophils/100 WBC (Bld)2.5 %Normal0.0 - 8.0 %[facility] HemeAutoSSEosinophils/Leukocytes Auto (Bld) [Pure # fraction]0.2 E9/LNormal0.0 - 0.5 E9/LFTMC HemeAutoSSLymphocytes/100 WBC (Bld) 20.1 %Uecsmn40.0 - 50.0 %[facility] HemeAutoSSLymphocytes/Leukocytes Auto (Bld) [Pure # fraction]1.5 E9/LNormal1.0 - 4.0 E9/LFT[facility] HemeAutoSSMonocytes/100 WBC (Bld)9.3 %Normal4.0 - 14.0 %[facility] HemeAutoSSMonocytes/Leukocytes Auto (Bld) [Pure # fraction]0.7 E9/LNormal0.2 - 1.0 E9/LFTMC HemeAutoSSNeutrophils/100 WBC (Bld) 67.7 %Iccdbb79.0 - 75.0 %[facility] HemeAutoSSNeutrophils/Leukocytes Auto (Bld) [Pure # fraction]4.9 E9/LNormal2.0 - 7.5 E9/LFTMC HemeAutoSSHEMATOLOGYOrdered By: Mavis Ramírez on 72-89-6334Sdcdkkpqyhg distribution width (RBC) [Ratio]13.4 % Oggpic24.9 - 14.2 %[facility] HemeAutoSSHematocrit (Bld) [Volume fraction]30.9 %Low 37.7 - 49.0 %[facility] HemeAutoSSHemoglobin (Bld) [Mass/Vol]10.5 g/dLLow13.5 - 17.5 gm/dLFTMC HemeAutoSSMCH (RBC) [Entitic mass]32.6 wuUaicet78.0 - 34.0 pgFTMC HemeAutoSSMCHC (RBC) [Mass/Vol]34.0 g/hINsjcga16.4 - 36.0 gm/dLFTMC HemeAutoSS MCV (RBC) [Entitic vol]95.9 zNRjkapq13.0 - 100.0 fLFTMC HemeAutoSSPlatelet mean volume (Bld) [Entitic vol]7.1 fLNormal6.4 - 10.8 fLFTMC HemeAutoSSPlatelets (Bld) [#/Vol]224.0 E9/GTduzsz845.0 - 500.0 E9/LFTMC HemeAutoSSRBC (Bld) [#/Vol] 3.2 E12/LLow4.3 - 5.9 E12/LFTMC HemeAutoSSWBC corrected for nucl RBC Auto (Bld) [#/Vol]7.2 E9/LNormal4.0 - 11.0 E9/LFTMC HemeAutoSSCHEMISTRYOrdered By: SYSTEM SYSTEM on 12-90-4339Wxxppumca [Mass/Vol]1.4 mg/dLNormal1.3 - 2.4 mg/dLFTMC RemisolReference Laboratory TestingOrdered By: Generated DomainUser on 30-92-8001agshMWVhwxm [Mass/Vol]microgram/mLLow2.0-20.0mcg/mLFTMC SendOutsSS Comment on above:Result Comment: Detection Limit = 1.0 Performed at: [address] [id number] MD Wicho SanjaiPHENobarbital [Mass/Vol]15 microgram/mLInvalid Interpretation Nrrn30-12cak/mLASCENSION ST. [facility] [place] SendOutsSSComment on above:Result Comment: Detection Limit = 3 Performed at: [address] [id number] MD Wicho MendesiPrimidone [Mass/Vol]Not detectedInvalid Interpretation Code5.0-12.0[facility] SendOutsSSComment on above:Result Comment: Verified by repeat analysis Detection Limit = 0.3 <0.3 indicates None DetectedCBC auto differentialon 50-93-2243Dmuecztg Eos #0.25 [facility] CENTERAbsolute Immature GranulocyteB[facility] Absolute Lymph #1.16[facility] TRUM[facility]ULLAbsolute [place] #0.48[facility] MEDICAL CENTERBasophils (Bld) [#/Vol]0.04 10*3/uLBON SECOURS ADAMS COUNTY REGIONAL MEDICAL CENTERBasophils/100 WBC (Bld)1 %0 - 2 %[facility] CENTEREosinophils/100 WBC (Bld)4 %1 - 4 % [facility]ICAL CENTERHematocrit (Bld) [Volume fraction]29.9 %Low40.7 - 50.3 % [facility] CENTERHemoglobin (Bld) [Mass/Vol]9.8 g/dLLow13.0 - 17.0 g/dL [facility] CENTERImmature granulocytes/100 WBC (Bld)0 %0[facility] MEDICAL CENTERInterpretation and review of laboratory resultsAbnormalBON SECOURS [facility] COUNTY REGIONAL MEDICAL CENTERLymphocytes/100 WBC (Bld)16 %Low24 - 43 %BON SECSOUTHERN OHIO MEDICAL CENTERH (RBC) [Entitic mass]33.2 pg25.2 - 33.5 pgBON SECOURS UPPER VALLEY MEDICAL CENTERHC (RBC) [Mass/Vol]32.8 g/dL28.4 - 34.8 g/dLBON SECSOUTHERN OHIO MEDICAL CENTERV (RBC) [Entitic vol]101.4 fL82.6 - 102.9 fLBON SECOURS ADAMS COUNTY REGIONAL MEDICAL CENTERMonocytes/100 WBC (Bld)7 %3 - 12 %[facility]ICAL CENTERNRBC Automated0.00.0 per 100 WBCCJW MEDICAL CENTERPlatelet distribution width (Bld) [Ratio]12.7 %11.8 - 14.4 %CJW MEDICAL CENTERPlatelet mean volume (Bld) [Entitic vol]8.9 fL8.1 - 13.5 fLCJW MEDICAL CENTERPlatelets (Bld) [#/Vol]191 10*3/uLCJW MEDICAL CENTER RBC (Bld) [#/Vol]2.95 10*6/uLLow4.21 - 5.77 m/[facility] Segmented neutrophils/100 WBC (Bld)72 %High36 - 65 %CJW MEDICAL CENTERSegs Absolute5.18BON [facility] TRUMBULLWBC (Bld) [#/Vol]7.1 10*3/uLVIRGINIA HOSPITAL CENTEREKG Rhythm Stripon [id number] Del E Webb Medical CenterGastrointestinal Panel, Molecularon [id number] sp DNA POLO+probe Nom (Unsp spec)NEGATIVE: No Campylobacter spp. (jejuni or coli) DNA DetectedCJW MEDICAL CENTERE. coli enterotoxigenic eltA+estB genes POLO+probe Ql (Stl)NEGATIVE: No Enterotoxigenic E. coli (ETEC) Heat-labile and heat-stable (LT/ST) DNA DetectedCJW MEDICAL CENTERP. shigelloides DNA POLO+probe Ql (Stl)NegativeCJW MEDICAL CENTERSalmonella sp DNA POLO+probe Ql (Unsp spec)NegativeCJW MEDICAL CENTERShiga toxin stx gene POLO+probe Nom (Unsp spec)NegativeCJW MEDICAL CENTERShigella sp DNA POLO+probe Ql (Unsp spec)NegativeCJW MEDICAL CENTERSpecimen Description.FECESCJW MEDICAL CENTERV. cholerae+parahaemolyticus rfbL+trkH+tnaA genes POLO+probe Ql (Stl) NEGATIVE: No Vibrio (V. vulnificus, V, parahaemolyticus and V. cholerae) DNA DetectedBON SECOURS MERCY HEALTHY. enterocolitica recN gene POLO+probe Ql (Stl) NegativeBON Mobile System 7 [facility] - TRUMBULLBON ARIZONA STATE HOSPITALHipLogicXR ABDOMEN (KUB) (SINGLE AP VIEW)on [id number] dilated loops of small bowel, compatible with known small bowel obstruction. Enteric contrast is seen within the rectum. [facility] CONSOLIDATEDEXAMINATION: ONE SUPINE XRAY VIEW(S) OF THE ABDOMEN [...] contours: Normal. Bones: No acute osseous findings. [facility] Mor Lozano MD - 06/23/2022 EXAMINATION: ONE SUPINE XRAY [...] Enteric contrast is seen within the rectum. ralali Work Phone: radiology Study observation (narrative)[employer] Phone: XR ABDOMEN (KUB) (SINGLE AP VIEW)Ordered By: Mor Louis on [id number] [employer] Phone: xr ABDOMEN FOR NG/OG/NE TUBE PLACEMENTon 06-23-2022 Enteric device is well within the stomach. [facility] CONSOLIDATEDEXAMINATION: ONE SUPINE XRAY VIEW(S) OF THE ABDOMEN [...] gas-filled loops mildly dilated small bowel redemonstrated. MHPN Kevin Nelson MD - 06/23/2022 EXAMINATION: ONE SUPINE XRAY [...] Enteric device is well within the stomach. [employer] Work Phone: radiology Study observation (narrative)[employer] Work Phone: xr ABDOMEN FOR NG/OG/NE TUBE PLACEMENTOrdered By: Janey Ayers on [id number] [employer] Work Phone: cbc auto differentialon [phone] Eos #0.46 HighBON SECHipLogicAbsolute Immature GranulocyteBON SECHipLogicAbsolute Lymph #1.65B[facility] CareinSyncAbsolute [place] #0.58BON SECHipLogicBasophils (Bld) [#/Vol]0.05 10*3/uLBON SECHipLogic Basophils/100 WBC (Bld)1 %0 - 2 %ralaliEosinophils/100 WBC (Bld)6 %High1 - 4 %ralaliHematocrit (Bld) [Volume fraction] 33.8 %Low40.7 - 50.3 %ralaliHemoglobin (Bld) [Mass/Vol]11.1 g/dLLow13.0 - 17.0 g/dLBON [facility] TRUMBULLImmature granulocytes/100 WBC (Bld)0 %0CJW MEDICAL CENTERInterpretation and review of laboratory results AbnormalCJW MEDICAL CENTERLymphocytes/100 WBC (Bld)22 %Low24 - 43 %[facility] HOSPITALH (RBC) [Entitic mass]33.0 pg25.2 - 33.5 pgSHENANDOAH MEMORIAL HOSPITALHC (RBC) [Mass/Vol]32.8 g/dL28.4 - 34.8 g/dLBON SECSOUTHERN OHIO MEDICAL CENTERV (RBC) [Entitic vol]100.6 fL82.6 - 102.9 fLCJW MEDICAL CENTER Monocytes/100 WBC (Bld)8 %3 - 12 %CJW MEDICAL CENTERNRBC Automated0.00.0 per 100 WBCCJW MEDICAL CENTERPlatelet distribution width (Bld) [Ratio]13.1 %11.8 - 14.4 %CJW MEDICAL CENTERPlatelet mean volume (Bld) [Entitic vol] 8.9 fL8.1 - 13.5 fLINOVA ALEXANDRIA HOSPITAL HEALTHPlatelets (Bld) [#/Vol]248 10*3/uLCJW MEDICAL CENTERRBC (Bld) [#/Vol]3.36 10*6/uLLow4.21 - 5.77 m/uLCJW MEDICAL CENTERSegmented neutrophils/100 WBC (Bld)63 %36 - 65 %[facility] MED[facility] CENTERSegs Absolute4.77B[facility] TRUMBULLWBC (Bld) [#/Vol]7.5 10*3/uLVIRGINIA HOSPITAL CENTEREKG Rhythm [id number] REGIONAL [facility] SMALL BOWEL FOLLOW THROUGH ONLY06-22-2022 Minimal contrast emptying from the stomach after 3 hours of imaging and diffuse small and large bowel distension, favoring ileus versus partial obstructing process. As such, follow-up abdominal radiograph in 4 hours (approximate 8 p.m.) is suggested. [facility] CONSOLIDATEDEXAMINATION: SMALL BOWEL FOLLOW THROUGH SERIES 06/22/2022 TECHNIQUE: [...] imaging. Small and large bowel again demonstrated. [facility] Daquan Royal MD - 06/22/2022 EXAMINATION: SMALL BOWEL FOLLOW [...] 4 hours (approximate 8 p.m.) is suggested. [facility]ITALFIRE1 [facility] HOSPITALNeRRe Therapeutics Work Phone: bon [employer] Phone: radiology Study observation (narrative)[employer] Phone: xr ABDOMEN (KUB) (SINGLE AP VIEW)on . NG tube remains in place. Persistent small bowel distension and nondilated colonic gas. 2. Distended bladder with contrast. [facility] CONSOLIDATEDEXAMINATION: ONE SUPINE XRAY VIEW(S) OF THE ABDOMEN [...] well. The bladder is distended with contrast. [facility] Daquan Royal MD - 06/22/2022 EXAMINATION: ONE SUPINE XRAY [...] colonic gas. 2. Distended bladder with contrast. [employer] Phone: radiology Study observation (narrative)[employer] Phone: xr ABDOMEN (KUB) (SINGLE AP VIEW)Ordered By: Daquan Mcdermott on [id number] [employer] Phone: cbC with Auto Differentialon [id number] Eos # 0.48HighBON SECOURS MERCY HEALTHAbsolute Immature Granulocyte0.00BON SECOURS [facility] HOSPITALY HEALTHAbsolute Lymph #1.68BON SEC[facility]RS [facility]OS[facility]ITALY HEALTHAbsolute [place] #0.84BON SECOURS [facility]OSPITALY HEALTHBasophils (Bld) [#/Vol]0.00 10*3/uLBON SECOURS [facility] HEALTH Basophils/100 WBC (Bld)0 %0 - 2 %[facility] HEALTHEosinophils/100 WBC (Bld)4 %1 - 4 %[facility] MEDICAL CENTERHematocrit (Bld) [Volume fraction]38.8 % Low40.7 - 50.3 %[facility] SECOHIOHEALTH PICKERINGTON METHODIST HOSPITALHemoglobin (Bld) [Mass/Vol]12.9 g/dLLow 13.0 - 17.0 g/dLBON SECOHIOHEALTH PICKERINGTON METHODIST HOSPITALImmature granulocytes/100 WBC (Bld)0 %0 [facility] SECSUR[facility]ICAL SPECIALTY [facility]ENTER HEALTHInterpretation and review of laboratory resultsAbnormal CJW MEDICAL CENTERLymphocytes/100 WBC (Bld)14 %Low24 - 43 %[facility]NDO[facility] MEMORIAL HOSPITALH (RBC) [Entitic mass]33.2 pg25.2 - 33.5 pgBON SECSOUTHERN OHIO MEDICAL CENTERHC (RBC) [Mass/Vol]33.2 g/dL28.4 - 34.8 g/dLBON SECSOUTHERN OHIO MEDICAL CENTERV (RBC) [Entitic vol]99.7 fL82.6 - 102.9 fLHONORHEALTH [facility]SD[facility] SECOHIOHEALTH PICKERINGTON METHODIST HOSPITALMonocytes/100 WBC (Bld)7 %3 - 12 %[facility] SECSUR[facility]ICAL SPECIALTY [facility]ENTER HEALTHMorphology Harsh (Bld) [Interp] Platelet scan shows Normal PlateletsCJW MEDICAL CENTERNRBC Automated0.00.0 per 100 WBCBON [facility] HEALTHPlatelet distribution width (Bld) [Ratio] 13.1 %11.8 - 14.4 %[facility] SECSURGICAL SPECIALTY CENTER HEALTHPlatelets (Bld) [#/Vol]See Reflexed IPF ResultBON [facility]OSPITAL - TRUMBULLRBC (Bld) [#/Vol]3.89 10*6/uLLow4.21 - 5.77 m/uLBON SECOURS [facility] MEDICAL CENTERSegmented neutrophils/100 WBC (Bld)75 %High36 - 65 % BON SECSURGICAL SPECIALTY CENTER HEALTHSegs Absolute9.00HighCJW MEDICAL CENTERWBC (Bld) [#/Vol]12.0 10*3/uLHighBON [facility] HOMECT ABDOMEN PELVIS W IV CONTRAST Additional Contrast? Noneon [id number]-bowel obstruction with transition point possibly in the ileum RECOMMENDATIONS: Surgical consultation [facility] CONSOLIDATEDEXAMINATION: CT OF THE ABDOMEN AND PELVIS WITH [...] calcifications are seen compatible with atherosclerotic disease. [facility] Melchor Mosqueda MD - 06/21/2022 EXAMINATION: CT OF THE [...] possibly in the ileum RECOMMENDATIONS: Surgical consultation [employer] Phone: radiology Study observation (narrative)[employer] Phone: cT ABDOMEN PELVIS W IV CONTRAST Additional Contrast? NoneOrdered By: Melchor Mota on [id number] [employer] Phone: Comprehensive Metabolic Panelon [id number] [Mass/Vol]4.3 g/dL3.5 - 5.2 g/dLBON PortafareAlbumin/Globulin [Mass ratio]1.2 {ratio}1.0 - 2.5BON PortafareALP [Catalytic activity/Vol] 131 U/LHigh40 - 129 U/LBON PortafareALT [Catalytic activity/Vol]19 U/L5 - 41 U/LBON [facility] HOSPITALNeRRe TherapeuticsAnion gap [Moles/Vol]11 mmol/L9 - 17 mmol/L BON SECOHIOHEALTH PICKERINGTON METHODIST HOSPITALAST [Catalytic activity/Vol]19 U/LNINF - 40 U/LBON SECSNOQUALMIE VALLEY HOSPITALNeRRe TherapeuticsBilirubin [Mass/Vol]0.3 mg/dL0.3 - 1.2 mg/dLBON SECOHIOHEALTH PICKERINGTON METHODIST HOSPITALCalcium [Mass/Vol]10.0 mg/dL8.6 - 10.4 mg/dLBON [facility] Carbon Black Chloride [Moles/Vol]99 mmol/L98 - 107 mmol/LBON [facility] Carbon BlackCO2 [Moles/Vol]28 mmol/L20 - 31 mmol/LBON [facility] Carbon BlackCreatinine [Mass/Vol] 1.04 mg/dL0.70 - 1.20 mg/dLBON PL[facility]ENT[facility]-LINDA HOSPITALNeRRe TherapeuticsGFR/1.73 sq M.predicted MDRD (S/P/Bld) [Vol rate/Area]- PINFBON [facility] Carbon BlackComment on above: These results are not intended [...] therapy that affects renal tubular secretion. Glucose [Mass/Vol]105 mg/wQEpfh18 - 99 mg/dLBON [facility] HOSPITALNeRRe Therapeutics Interpretation and review of laboratory resultsAbnormalBON [facility] Carbon Black Potassium [Moles/Vol]3.8 mmol/L3.7 - 5.3 mmol/LBON [facility] HOSPITALNeRRe TherapeuticsProtein [Mass/Vol]7.8 g/dL6.4 - 8.3 g/dLBON SECSURGICAL SPECIALTY CENTER Carbon BlackSodium [Moles/Vol]138 mmol/L135 - 144 mmol/LBON [facility] CareinSyncUrea nitrogen [Mass/Vol]19 mg/dL8 - 23 mg/dLBON [facility] HOSPITALNeRRe TherapeuticsUrea nitrogen/Creatinine (Bld) [Mass ratio]189 - 20BON [facility] HOSPITALNeRRe TherapeuticsImmature Platelet Fractionon [id number], Bgmsweyoqzaw190CVS PLACENT[facility]-LINDA HOSPITALGotuit HEALTHPlatelet, Immature Fraction1.2 %1.1 - 10.3 %BON [facility]SING HOMELactic Acidon 06-21-2022 Lactate (P simon) [Moles/Vol]1.3 mmol/L0.5 - 2.2 mmol/LBON [facility] HEALTHLipaseon [id number] [Catalytic activity/Vol]27 U/L13 - 60 U/LBON [facility]UM[facility]ULLNo Panel Informationon [id number] [facility] TRUMBULLSPECIMEN REJECTIONon [id number] TestCP,LIPCJW MEDICAL CENTERReason for RejectionUnable to perform testing: Specimen hemolyzed.CJW MEDICAL CENTERSpecimen source Nom (Unsp spec).[facility] HEALTHXR ABDOMEN FOR NG/OG/NE TUBE PLACEMENTon [id number] OG/NG tube has been placed in good position. [facility] RIS CONSOLIDATEDEXAMINATION: ONE SUPINE XRAY VIEW(S) OF THE ABDOMEN [...] upper abdomen. Lung bases are grossly clear. [facility] Uma Bahena MD - 06/21/2022 EXAMINATION: ONE SUPINE XRAY [...] tube has been placed in good position. ralali Work Phone: radiology Study observation (narrative)[employer] Phone: XR ABDOMEN FOR NG/OG/NE TUBE PLACEMENTOrdered By: Uma Gaston on [id number] [employer] Phone: [phone], Rapidon [id number]-CoV-2 (COVID-19) RdRp gene POLO+probe Ql (Resp)Not detectedNot DetectedBON PortafareComment on above: Rapid NAAT: The specimen is [...] management decisions. Fact sheet for Healthcare Providers: https://www.fda.gov/media/840110/download Fact sheet for Patients: https://www.fda.gov/media/435125/download Methodology: Isothermal Nucleic Acid Amplification Specimen Description.NASOPHARYNGEAL SWABBON SECParent Media GroupCBC auto differentialon [id number] Eos #BON SECHipLogicAbsolute Immature Granulocyte0.05BON SECOURS AdlogixY Carbon BlackAbsolute Lymph # 1.27BON SECOURS AdlogixY HEALTHAbsolute [place] #0.98BON SECOURS CareinSyncBasophils (Bld) [#/Vol]0.04 10*3/uLBON SECOURS CareinSyncBasophils/100 WBC (Bld)0 %0 - 2 %BON SECIndiaHomes HEALTHEosinophils/100 WBC (Bld)0 %Low1 - 4 %BON [facility] - TRUMBULLHematocrit (Bld) [Volume fraction]34.8 %Low40.7 - 50.3 %BON [facility] TRUMBULLHemoglobin (Bld) [Mass/Vol]11.4 g/dLLow13.0 - 17.0 g/dLBON SECOHIOHEALTH PICKERINGTON METHODIST HOSPITALImmature granulocytes/100 WBC (Bld)0 %0BON [facility] Interpretation and review of laboratory resultsAbnormalBON [facility] Lymphocytes/100 WBC (Bld)11 %Low24 - 43 %BON [facility] HOSPITALH (RBC) [Entitic mass]34.0 udCgdt29.2 - 33.5 pgBON [facility] HOSPITALHC (RBC) [Mass/Vol]32.8 g/dL28.4 - 34.8 g/dLBON SECSOUTHERN OHIO MEDICAL CENTERV (RBC) [Entitic vol]103.9 lNBwpr83.6 - 102.9 fLBON [facility] TRUMBULLMonocytes/100 WBC (Bld)9 %3 - 12 %CJW MEDICAL CENTERNRBC Automated0.00.0 per 100 WBCCJW MEDICAL CENTERPlatelet distribution width (Bld) [Ratio]13.0 %11.8 - 14.4 %BON [facility] - TRUMBULLPlatelet mean volume (Bld) [Entitic vol]10.2 fL8.1 - 13.5 fL CJW MEDICAL CENTERPlatelets (Bld) [#/Vol]147 10*3/uLBON SECOHIOHEALTH PICKERINGTON METHODIST HOSPITALRBC (Bld) [#/Vol]3.35 10*6/uLLow4.21 - 5.77 m/uLBON [facility] Segmented neutrophils/100 WBC (Bld)80 %High36 - 65 %CJW MEDICAL CENTERSegs Absolute9.05HighBON SECOHIOHEALTH PICKERINGTON METHODIST HOSPITALWBC (Bld) [#/Vol]11.4 10*3/uLHighBON [facility] HEALTHComprehensive Metabolic Panel w/ Reflex to MGon [id number] [Mass/Vol]3.3 g/dLLow3.5 - 5.2 g/dLBON SECOURS AdlogixY HEALTHAlbumin/Globulin [Mass ratio]0.9 {ratio}Low1.0 - 2.5BON [facility]RS [facility] HEALTHALP [Catalytic activity/Vol]108 U/L40 - 129 U/LBON [facility] HEALTHALT [Catalytic activity/Vol]12 U/L5 - 41 U/LBON [facility] HEALTHAnion gap [Moles/Vol]14 mmol/L9 - 17 mmol/LBON [facility]RS MERCY HEALTHAST [Catalytic activity/Vol]17 U/LNINF - 40 U/LBON SECOURS [facility]OSPITALY HEALTHBilirubin [Mass/Vol]0.9 mg/dL0.3 - 1.2 mg/dLBON [facility]RS [facility] HEALTHCalcium [Mass/Vol]9.0 mg/dL8.6 - 10.4 mg/dLBON [facility] HEALTHChloride [Moles/Vol]109 mmol/LHigh98 - 107 mmol/LBON SECOURS [facility]OSPITALY HEALTHCO2 [Moles/Vol]23 mmol/L20 - 31 mmol/LBON [facility] HEALTHCreatinine [Mass/Vol]1 mg/dL0.70 - 1.20 mg/dLBON SECZIA [facility] [employer] HEALTHGFR/1.73 sq M.predicted MDRD (S/P/Bld) [Vol rate/Area]- PINFBON [facility] Carbon BlackComment on above: These results are not intended [...] therapy that affects renal tubular secretion. Glucose [Mass/Vol]82 mg/dL70 - 99 mg/dLBON SECOURS [employer] HEALTHInterpretation and review of laboratory resultsAbnormalBON SECOURS AdlogixY HEALTHPotassium [Moles/Vol]3.9 mmol/L3.7 - 5.3 mmol/LBON SECOURS AdlogixY HEALTHProtein [Mass/Vol] 6.9 g/dL6.4 - 8.3 g/dLBON SECOURS [employer] HEALTHSodium [Moles/Vol]146 mmol/LHigh 135 - 144 mmol/LBON [facility]RS [facility] HEALTHUrea nitrogen [Mass/Vol]25 mg/dLHigh8 - 23 mg/dLBON [facility] HEALTHUrea nitrogen/Creatinine (Bld) [Mass ratio]25 High9 - 20BON [facility] TRUMBULLBON [facility] SMALL BOWEL FOLLOW THROUGH ONLYon [id number] distended loops of small bowel in the left abdomen with normal small bowel transit time. [facility] CONSOLIDATEDEXAMINATION: SMALL BOWEL FOLLOW THROUGH SERIES 05/11/2022 TECHNIQUE: [...] images of the terminal ileum are unremarkable. [facility] Abbey Dowling MD - 05/11/2022 EXAMINATION: SMALL BOWEL FOLLOW [...] abdomen with normal small bowel transit time. [employer] Phone: radiology Study observation (narrative)[employer] Phone: fl SMALL BOWEL FOLLOW THROUGH ONLYOrdered By: Abbey Joaquin on [id number] [facility] Work Phone: cb auto differentialon [id number] Eos #BON [facility] TRUMBULLAbsolute Immature Granulocyte0.06BON [facility] Absolute Lymph #1.45BON SECOHIOHEALTH PICKERINGTON METHODIST HOSPITALAbsolute [place] #0.87BON [facility] TRUMBULLBasophils (Bld) [#/Vol]0.06 10*3/uLBON [facility] TRUM[facility]ULLBasophils/100 WBC (Bld)0 %0 - 2 %CJW MEDICAL CENTEREosinophils/100 WBC (Bld)0 %Low1 - 4 %CJW MEDICAL CENTERHematocrit (Bld) [Volume fraction]35.9 %Low40.7 - 50.3 %CJW MEDICAL CENTERHemoglobin (Bld) [Mass/Vol]12.0 g/dLLow13.0 - 17.0 g/dL C[facility] MEDICAL CENTERImmature granulocytes/100 WBC (Bld)0 %0CJW MEDICAL CENTERInterpretation and review of laboratory resultsAbnormalBON [facility] TRUMBULLLymphocytes/100 WBC (Bld)11 %Low24 - 43 %[facility]ORIAL HOSPITALH (RBC) [Entitic mass]33.8 dzRubk56.2 - 33.5 pgSHENANDOAH MEMORIAL HOSPITALHC (RBC) [Mass/Vol]33.4 g/dL28.4 - 34.8 g/dLBON [facility] HOSPITALV (RBC) [Entitic vol]101.1 fL82.6 - 102.9 fLCJW MEDICAL CENTERMonocytes/100 WBC (Bld)7 %3 - 12 %CJW MEDICAL CENTERNRBC Automated0.00.0 per 100 WBCCJW MEDICAL CENTERPlatelet distribution width (Bld) [Ratio]13.1 %11.8 - 14.4 %CJW MEDICAL CENTERPlatelet mean volume (Bld) [Entitic vol]9.2 fL8.1 - 13.5 fLCJW MEDICAL CENTERPlatelets (Bld) [#/Vol]170 10*3/uLBON [facility] RBC (Bld) [#/Vol]3.55 10*6/uLLow4.21 - 5.77 m/uLBON [facility] Segmented neutrophils/100 WBC (Bld)82 %High36 - 65 %BON [facility]OS[facility] - TRUMBULLSegs Oxciqceh63.97HighBON [facility]OS[facility] - TRUMBULLWBC (Bld) [#/Vol]13.4 10*3/uLHighBON [facility] HOMEComprehensive Metabolic Panel w/ Reflex to MGon [id number] [Mass/Vol]3.5 g/dL3.5 - 5.2 g/dLBON [facility] TRUMBULLAlbumin/Globulin [Mass ratio]1.1 {ratio}1.0 - 2.5BON [facility]OS[facility] - TRUMBULLALP [Catalytic activity/Vol]118 U/L40 - 129 U/LBON [facility] HOS[facility] TRUMBULLALT [Catalytic activity/Vol]10 U/L5 - 41 U/LBON [facility] TRUMBULLAnion gap [Moles/Vol]10 mmol/L9 - 17 mmol/LBON [facility] HOS[facility] - TRUMBULLAST [Catalytic activity/Vol]13 U/LNINF - 40 U/LBON [facility] TRUMBULLBilirubin [Mass/Vol]0.6 mg/dL0.3 - 1.2 mg/dLBON [facility] TRUM[facility]ULLCalcium [Mass/Vol]9.0 mg/dL8.6 - 10.4 mg/dLBON [facility] TRUMBULLChloride [Moles/Vol]107 mmol/L98 - 107 mmol/L CJW MEDICAL CENTERCO2 [Moles/Vol]28 mmol/L20 - 31 mmol/LBON [facility] TRUMBULLCreatinine [Mass/Vol]1.02 mg/dL0.70 - 1.20 mg/dLBON [facility] GFR/1.73 sq M.predicted MDRD (S/P/Bld) [Vol rate/Area]- PINFBON [facility] TRUMBULLComment on above: These results are not intended [...] therapy that affects renal tubular secretion. Glucose [Mass/Vol]108 mg/vNOpno17 - 99 mg/dLBON [facility] Interpretation and review of laboratory resultsAbnormalBON [facility] Potassium [Moles/Vol]3.8 mmol/L3.7 - 5.3 mmol/LBON [facility] TRUM[facility]ULLProtein [Mass/Vol]6.8 g/dL6.4 - 8.3 g/dLBON [facility] TRUMBULLSodium [Moles/Vol]145 mmol/QAejn348 - 144 mmol/LBON [facility] TRUMBULLUrea nitrogen [Mass/Vol]29 mg/dLHigh8 - 23 mg/dLBON [facility] TRUMBULLUrea nitrogen/Creatinine (Bld) [Mass ratio]58Vyfy0 - 20BON [facility] HOMEGlucose, Whole Bloodon [id number] [Mass/Vol]88 mg/dL74 - 100 mg/dLBON [facility] HOMEXR ACUTE ABD SERIES CHEST 1 VWon 05-10-2022 No acute cardiopulmonary process. Nonspecific bowel gas pattern without evidence for obstruction. Gastric tube with the tip in the gastric fundus. [facility] RIS CONSOLIDATEDEXAMINATION: TWO XRAY VIEWS OF THE ABDOMEN AND [...] surrounding soft tissues are unremarkable. [facility] RIS Toby Thompson MD - 05/10/2022 EXAMINATION: TWO XRAY VIEWS [...] with the tip in the gastric fundus. ralali Work Phone: bon [employer] Work Phone: radiology Study observation (narrative)ralali Work Phone: bMPon 82-50-1800Mxbyk gap [Moles/Vol]16 mmol/L9 - 17 mmol/LBON PortafareCalcium [Mass/Vol]10.4 mg/dL8.6 - 10.4 mg/dLBON PortafareChloride [Moles/Vol]99 mmol/L98 - 107 mmol/LBON PortafareCO2 [Moles/Vol]24 mmol/L20 - 31 mmol/LBON [employer] Creatinine [Mass/Vol]1.71 mg/dLHigh0.70 - 1.20 mg/dLBON [employer] GFR/1.73 sq M.predicted MDRD (S/P/Bld) [Vol rate/Area]44 mL/min/{1.73_m2}Low- PINFBON PortafareComment on above: These results are not intended [...] therapy that affects renal tubular secretion. Glucose [Mass/Vol]125 mg/zDLrpd27 - 99 mg/dLBON PortafarePotassium [Moles/Vol]4.0 mmol/L3.7 - 5.3 mmol/LBON PortafareSodium [Moles/Vol] 139 mmol/L135 - 144 mmol/LBON PortafareUrea nitrogen [Mass/Vol]34 mg/dLHigh8 - 23 mg/dLBON SECOHIOHEALTH PICKERINGTON METHODIST HOSPITALUrea nitrogen/Creatinine (Bld) [Mass ratio]209 - 20BON [facility] TRUMBULLCBC auto differentialon 05-09-2022 Absolute Eos #BON [facility] TRUMBULLAbsolute Immature Granulocyte0.05BON [facility] MEDICAL CENTERAbsolute Lymph #1.88BON [facility] HEALTHAbsolute [place] # 1.00BON [facility] MEDICAL CENTERBasophils (Bld) [#/Vol]0.03 10*3/uLBON [facility] MED[facility] CENTERBasophils/100 WBC (Bld)0 %0 - 2 %[facility] MEDICAL CENTEREosinophils/100 WBC (Bld)0 %Low1 - 4 %CJW MEDICAL CENTERHematocrit (Bld) [Volume fraction] 43.7 %40.7 - 50.3 %CJ[facility] MEDICAL CENTERHemoglobin (Bld) [Mass/Vol]14.8 g/dL 13.0 - 17.0 g/dLBON SECOHIOHEALTH PICKERINGTON METHODIST HOSPITALImmature granulocytes/100 WBC (Bld)0 %0 [facility] MEDICAL CENTERInterpretation and review of laboratory resultsAbnormal CJW MEDICAL CENTERLymphocytes/100 WBC (Bld)15 %Low24 - 43 %[facility]ND[facility]ORIAL HOSPITALH (RBC) [Entitic mass]33.6 spCyim92.2 - 33.5 pgBON [facility] HOSPITALHC (RBC) [Mass/Vol]33.9 g/dL28.4 - 34.8 g/dLBON SECSOUTHERN OHIO MEDICAL CENTERV (RBC) [Entitic vol]99.1 fL82.6 - 102.9 fLINOVA [facility]LEXANDRIA [facility]OSPITAL HEALTHMonocytes/100 WBC (Bld)8 %3 - 12 %CJW MEDICAL CENTERNRBC Automated0.00.0 per 100 WBCBON SECSURGICAL SPECIALTY CENTER HEALTHPlatelet distribution width (Bld) [Ratio]12.9 %11.8 - 14.4 % BON SECSURGICAL SPECIALTY CENTER HEALTHPlatelet mean volume (Bld) [Entitic vol]9.3 fL8.1 - 13.5 fLHONORHEALTH [facility]OTTSDALE OSBORN [facility] SECOURS [facility] HEALTHPlatelets (Bld) [#/Vol]285 10*3/uLBON SECOURS [facility] HOSPITALY HEALTHRBC (Bld) [#/Vol]4.41 10*6/uL4.21 - 5.77 m/uLINOVA ALEXANDRIA [facility]OSPITAL HEALTH Segmented neutrophils/100 WBC (Bld)77 %High36 - 65 %BON SECSURGICAL SPECIALTY CENTER HEALTHSegs Absolute9.73HighBON SECS[facility] HEALTHWBC (Bld) [#/Vol]12.7 10*3/uLHighBON [facility] HEALTHBON [facility] HEALTHComprehensive Metabolic Panel w/ Reflex to MGon [id number] [Mass/Vol]4.7 g/dL3.5 - 5.2 g/dLBON [facility] HEALTHAlbumin/Globulin [Mass ratio]1.2 {ratio}1.0 - 2.5BON SECOURS [facility] HOSPITALY HEALTHALP [Catalytic activity/Vol]172 U/LHigh40 - 129 U/LBON [facility]RS [facility]OS[facility]ITALY HEALTHALT [Catalytic activity/Vol]14 U/L5 - 41 U/LBON [facility]OS[facility]ITALY HEALTHAnion gap [Moles/Vol]12 mmol/L9 - 17 mmol/LBON [facility]RS [facility] HOSPITALY HEALTHAST [Catalytic activity/Vol]16 U/LNINF - 40 U/LBON [facility]ITALY HEALTHBilirubin [Mass/Vol]0.6 mg/dL0.3 - 1.2 mg/dLBON [facility] HEALTHCalcium [Mass/Vol]10.7 mg/dLHigh8.6 - 10.4 mg/dLBON [facility] HEALTHChloride [Moles/Vol]99 mmol/L98 - 107 mmol/L [facility] SECSUR[facility]ICAL [facility] HEALTHCO2 [Moles/Vol]32 mmol/LHigh20 - 31 mmol/LBON [facility]RS [facility]OSPITALY HEALTHCreatinine [Mass/Vol]1.72 mg/dLHigh0.70 - 1.20 mg/dLBON SEC[facility]RS [facility] HOSPITALY HEALTHGFR/1.73 sq M.predicted MDRD (S/P/Bld) [Vol rate/Area]43 mL/min/{1.73_m2}Low- PINFBON SECOURS [facility] HEALTHComment on above: These results are not intended [...] therapy that affects renal tubular secretion. Glucose [Mass/Vol]120 mg/aIWxxf26 - 99 mg/dLBON [facility] Interpretation and review of laboratory resultsAbnormalBON [facility] Potassium [Moles/Vol]4.3 mmol/L3.7 - 5.3 mmol/LBON SECSURGICAL SPECIALTY [facility]ENTER HEALTHProtein [Mass/Vol]8.6 g/dLHigh6.4 - 8.3 g/dLBON [facility] - TRUMBULLSodium [Moles/Vol] 143 mmol/L135 - 144 mmol/LBON [facility] HEALTHUrea nitrogen [Mass/Vol]39 mg/dLHigh8 - 23 mg/dLBON [facility] HEALTHUrea nitrogen/Creatinine (Bld) [Mass ratio]77Uoaj7 - 20BON [facility]OU[facility] HEALTHHepatic Function Panelon [id number] [Mass/Vol]4.6 g/dL3.5 - 5.2 g/dLBON [facility] HEALTHAlbumin/Globulin [Mass ratio]1.1 {ratio}1.0 - 2.5BON [facility] HEALTHALP [Catalytic activity/Vol]176 U/LHigh40 - 129 U/LBON [facility] HEALTHALT [Catalytic activity/Vol]15 U/L5 - 41 U/LBON [facility] HEALTHAST [Catalytic activity/Vol]15 U/LNINF - 40 U/LBON [facility] HEALTHBilirubin [Mass/Vol]0.4 mg/dL0.3 - 1.2 mg/dLBON [facility] HEALTHBilirubin.direct [Mass/Vol]mg/dLNINF - 0.3 mg/dLBON [facility] HEALTHBilirubin.indirect [Mass/Vol]Can not be calculated0.0 - 1.0 mg/dLBON [facility] HEALTHProtein [Mass/Vol]8.8 g/dLHigh6.4 - 8.3 g/dLBON [facility]TY [facility] - TRUMBULLLactic Acidon [id number] (P simon) [Moles/Vol]1.5 mmol/L0.5 - 2.2 mmol/LBON [facility] NURSING HOMELipaseon [id number] [Catalytic activity/Vol]46 U/L13 - 60 U/LBON [facility] - TRUMBULLMagnesiumon 05-09-2022 Magnesium [Mass/Vol]1.9 mg/dL1.6 - 2.6 mg/dLBON [facility] - TRUMBULLNo Panel Informationon [id number] and review of laboratory resultsAbnormal [facility] (SINGLE AP VIEW)on [id number] air-filled loops of bowel concerning for degree of obstruction. Gastric tube with the tip in the gastric fundus. [facility] CONSOLIDATEDEXAMINATION: ONE SUPINE XRAY VIEW(S) OF THE ABDOMEN [...] abnormality. The surrounding soft tissues are unremarkable. [facility] Toby Sr MD - 05/09/2022 EXAMINATION: ONE SUPINE XRAY [...] with the tip in the gastric fundus. [employer] Work Phone: radiology Study observation (narrative)[facility] [employer] Work Phone: Multiple dilated small bowel loops, ileus versus small-bowel obstruction. The stomach is distended with intraluminal air. [facility] CONSOLIDATEDEXAMINATION: ONE SUPINE XRAY VIEW(S) OF THE ABDOMEN 05/09/2022 12:48 am COMPARISON: Abdominal x-ray 10/28/2013. HISTORY: ORDERING SYSTEM PROVIDED HISTORY: SBO TECHNOLOGIST PROVIDED HISTORY: SBO FINDINGS: Multiple dilated small bowel loops containing intraluminal air, ileus versus small-bowel obstruction. The stomach is distended with intraluminal air. Lower lungs are clear. No free air. Bony structures are unremarkable. [facility] Geovany Ocasio MD - 05/09/2022 EXAMINATION: ONE SUPINE XRAY [...] The stomach is distended with intraluminal air. [employer] Phone: radiology Study observation (narrative)[employer] Phone: XR ABDOMEN (KUB) (SINGLE AP VIEW)Ordered By: Toby Lofton on [id number] [employer] Phone: XR ABDOMEN (KUB) (SINGLE AP VIEW)Ordered By: Geovany Dove on [id number] [employer] Phone: XR ABDOMEN FOR NG/OG/NE TUBE PLACEMENTon [id number] of the enteric tube projects over the gastric body, side port projects over the gastric body. Partially imaged bowel loops are dilated, similar to prior. [facility] CONSOLIDATEDEXAMINATION: ONE SUPINE XRAY VIEW(S) OF THE ABDOMEN [...] matta are clear. Bony structures are unremarkable. Geovany Kurtz MD - 05/09/2022 EXAMINATION: ONE SUPINE XRAY [...] bowel loops are dilated, similar to prior. ralali Work Phone: b [employer] Work Phone: radiology Study observation (narrative)[employer] Phone: cBC with Auto Differentialon [id number] Eos # ralaliAbsolute Immature Granulocyte0.06BON PortafareAbsolute Lymph #1.30BON PortafareAbsolute [place] #0.58BON PortafareBasophils (Bld) [#/Vol]0.05 10*3/uLBON [facility] Basophils/100 WBC (Bld)0 %0 - 2 %ralaliEosinophils/100 WBC (Bld)0 %Low1 - 4 %ralaliHematocrit (Bld) [Volume fraction]43.1 %40.7 - 50.3 %[facility] MEDICAL CENTERHemoglobin (Bld) [Mass/Vol]14.9 g/dL13.0 - 17.0 g/dLBON [facility] TRUMBULLImmature granulocytes/100 WBC (Bld)0 %0C[facility] MEDICAL CENTERInterpretation and review of laboratory resultsAbnormalCJW MEDICAL CENTERLymphocytes/100 WBC (Bld)9 %Low24 - 43 %[facility] HOSPITALH (RBC) [Entitic mass]33.9 oxSlrc57.2 - 33.5 pgBON [facility] MCHC (RBC) [Mass/Vol]34.6 g/dL28.4 - 34.8 g/dLBON SECOHIOHE[facility]ICKER[facility]IST HOSPITALMCV (RBC) [Entitic vol]98.0 fL82.6 - 102.9 fLCJW MEDICAL CENTERMonocytes/100 WBC (Bld)4 %3 - 12 %[facility] MEDICAL CENTERNRBC Automated0.00.0 per 100 WBCCJW MEDICAL CENTERPlatelet distribution width (Bld) [Ratio]12.9 %11.8 - 14.4 % [facility] MEDICAL CENTERPlatelet mean volume (Bld) [Entitic vol]9.2 fL8.1 - 13.5 fLCJW MEDICAL CENTERPlatelets (Bld) [#/Vol]305 10*3/uLBON [facility] TRUMBULLRBC (Bld) [#/Vol]4.40 10*6/uL4.21 - 5.77 m/uLCJW MEDICAL CENTER Segmented neutrophils/100 WBC (Bld)87 %High36 - 65 %[facility] CENTERSegs Vwlysvnm70.89HighCJW MEDICAL CENTERWBC (Bld) [#/Vol]14.9 10*3/uLHighBON [facility] HOMEMicroscopic Urinalysison 05-05-2022 Amorphous, UATRACEAbnormalNoneBON [facility] TRUMBULLBacteria, UA1+AbnormalNone [facility] CENTEREpithelial Cells UANoneBON [facility] Interpretation and review of laboratory resultsAbnormalCJW MEDICAL [facility]ENTER RBC clumps Auto (Urine sed) [#/Area]NoneBON [facility]ITALY HEALTHWBC, UANoneBON SEC[facility] HEALTHBON SECOURS [facility]ITALY HEALTHUrinalysis with Reflex to Cultureon [id number] UrineNegativeNEGATIVEBON SECOURS [facility]ITALY HEALTHColor, UAYellow YellowBON SECOURS [facility]ITALY HEALTHGlucose Auto test strip (U) [Mass/Vol]Negative NEGATIVEBON [facility] HEALTHKetones (U) [Mass/Vol]NegativeNEGATIVEBON SECOURS [facility]ITALY HEALTHLeukocyte esterase Auto test strip Ql (U)NegativeNEGATIVEBON [facility] HEALTHNitrite Auto test strip Ql (U)NegativeNEGATIVEBON SECOURS [facility]ITALY HEALTHProtein (U) [Mass/Vol]6.5 mg/dL5.0 - 9.0B[facility] HEALTH Protein (U) [Mass/Vol]NegativeNEGATIVEBON [facility] HEALTHSpecific Fluker, UA1.0201.010 - 1.020BON [facility]Y HEALTHTurbidity UAClearClearBON [facility] HEALTHUrine HgbNegativeNEGATIVEBON SECR[facility]LEY [facility] CENTERUrobilinogen, Urine NormalNormalBON [facility] HEALTHBON SECOURS [facility]Y HEALTHCBC with Auto Differentialon [id number] Eos #0.16BON SECOURS [facility]OSPITALY [facility] TRUMBULLAbsolute Immature GranulocyteBON SECOURS [facility]ITALY HEALTHAbsolute Lymph #1.71B[facility] HEALTHAbsolute [place] #0.29BON SEC[facility]RS [facility] HOSPITALGotuit [facility] TRUMBULLBasophils (Bld) [#/Vol] 0.05 10*3/uLBON SECOURS [employer] HEALTHBasophils/100 WBC (Bld)1 %0 - 2 %BON SECIndiaHomes [facility] - TRUMBULLEosinophils/100 WBC (Bld)2 %1 - 4 %[facility] HOSPITALGotuit HEALTH Hematocrit (Bld) [Volume fraction]39.3 %Low40.7 - 50.3 %Navegg [facility]PITALFIRE1 [facility] HOSPITALGotuit HEALTH Hemoglobin (Bld) [Mass/Vol]12.6 g/dLLow13.0 - 17.0 g/dLBON SECFIRE1 [facility] HOSPITALGotuit HEALTH Immature granulocytes/100 WBC (Bld)0 %0BON SECOURS [facility] HOSPITALGotuit HEALTHInterpretation and review of laboratory resultsAbnormalBON SECOURS [facility]OSPITALY HEALTHLymphocytes/100 WBC (Bld)24 %24 - 43 %[facility] HOSPITALH (RBC) [Entitic mass]32.5 pg 25.2 - 33.5 pgSHENANDOAH MEMORIAL HOSPITALHC (RBC) [Mass/Vol]32.1 g/dL28.4 - 34.8 g/dLBON [facility] HOSPITALV (RBC) [Entitic vol]101.3 fL82.6 - 102.9 fLCJW MEDICAL CENTERMonocytes/100 WBC (Bld)4 %3 - 12 %[facility] NRBC Automated0.00.0 per 100 WBCBON [facility] TRUMBULLPlatelet distribution width (Bld) [Ratio]12.2 %11.8 - 14.4 %[facility] MEDICAL CENTERPlatelet mean volume (Bld) [Entitic vol]9.2 fL8.1 - 13.5 fLCJW MEDICAL CENTERPlatelets (Bld) [#/Vol]206 10*3/uLBON [facility] TRUMBULLRBC (Bld) [#/Vol]3.88 10*6/uLLow 4.21 - 5.77 m/uLCJW MEDICAL CENTERSegmented neutrophils/100 WBC (Bld)69 % High36 - 65 %[facility] CENTERSegs Absolute4.99[facility] WBC (Bld) [#/Vol]7.2 10*3/uLBON [facility] Vitamin B12 & Folateon 77-62-1386Atxdeniws (Vitamin B12) [Mass/Vol]295 pg/mL232 - 1245 pg/mLCJW MEDICAL CENTERFolate14.2 ng/mL4.8 - PINF ng/mLBON [facility]URSING HOMEAmmoniaon [id number] (P) [Moles/Vol] 27 umol/L16 - 60 umol/LBON [facility]SING HOMEBasic Metabolic Panelon [id number] gap [Moles/Vol]8 mmol/LLow9 - 17 mmol/LBON [facility] TRUMBULLCalcium [Mass/Vol]9.3 mg/dL8.6 - 10.4 mg/dLBON [facility] HEALTHChloride [Moles/Vol]107 mmol/L98 - 107 mmol/LBON [facility] HEALTHCO2 [Moles/Vol]28 mmol/L20 - 31 mmol/LBON [facility] HEALTHCreatinine [Mass/Vol]1 mg/dL0.70 - 1.20 mg/dLBON [facility] HEALTHGFR/1.73 sq M.predicted MDRD (S/P/Bld) [Vol rate/Area]- PINFBON SECOURS MERCY HEALTHComment on above: Effective Dec 05, 2021 These [...] therapy that affects renal tubular secretion. Glucose [Mass/Vol]88 mg/dL70 - 99 mg/dLBON [facility] HEALTHPotassium [Moles/Vol]4.9 mmol/L3.7 - 5.3 mmol/LBON [facility] HEALTHSodium [Moles/Vol] 143 mmol/L135 - 144 mmol/LBON [facility] HEALTHUrea nitrogen (BldV) [Mass/Vol]15 mg/dL8 - 23 mg/dLBON [facility] HEALTHUrea nitrogen/Creatinine (Bld) [Mass ratio]159 - 20B[facility] HEALTHCBC with Auto Differentialon [id number] Eos #0.19B[facility] HEALTHAbsolute Immature GranulocyteBON [facility] HEALTHAbsolute Lymph #1.74[facility] Absolute [place] #0.49B[facility] HEALTHBasophils (Bld) [#/Vol]0.03 10*3/uL [facility] HEALTHBasophils/100 WBC (Bld)1 %0 - 2 %[facility] HEALTHEosinophils/100 WBC (Bld)4 %1 - 4 %[facility] HEALTHHematocrit (Bld) [Volume fraction]37.3 %Low40.7 - 50.3 %[facility] HEALTHHemoglobin (Bld) [Mass/Vol]12.1 g/dLLow13.0 - 17.0 g/dLBON [facility]ULLImmature granulocytes/100 WBC (Bld)0 %0[facility] CENTERInterpretation and review of laboratory resultsAbnormalCJW MEDICAL CENTERLymphocytes/100 WBC (Bld)32 %24 - 43 %[facility] HOSPITALH (RBC) [Entitic mass]33.4 pg25.2 - 33.5 pg BON [facility] HOSPITALHC (RBC) [Mass/Vol]32.4 g/dL28.4 - 34.8 g/dLBON [facility] FAIRFIELD HOSPITALV (RBC) [Entitic vol]103.0 xKWibx57.6 - 102.9 fLCJW MEDICAL CENTERMonocytes/100 WBC (Bld)9 %3 - 12 %[facility] NRBC Automated0.00.0 per 100 WBCBON [facility] TRUMBULLPlatelet distribution width (Bld) [Ratio]12.9 %11.8 - 14.4 %[facility] HEALTHPlatelet mean volume (Bld) [Entitic vol]9.1 fL8.1 - 13.5 fLBON [facility] HEALTHPlatelets (Bld) [#/Vol]189 10*3/uLBON [facility] HEALTHRBC (Bld) [#/Vol]3.62 10*6/uLLow 4.21 - 5.77 m/uLBON [facility] TRUM[facility]ULLSegmented neutrophils/100 WBC (Bld)54 % 36 - 65 %[facility] MEDICAL CENTERSegs Absolute2.91BON [facility] TRUMBULLWBC (Bld) [#/Vol]5.4 10*3/uLBON [facility] HEALTHHepatic Function Panelon [id number] [Mass/Vol]4 g/dL3.5 - 5.2 g/dLBON [facility] HEALTHAlbumin/Globulin [Mass ratio]1.3 {ratio}1.0 - 2.5BON [facility]TY [facility]OS[facility] - TRUMBULLALP (Bld) [Catalytic activity/Vol]140 U/LHigh40 - 129 U/LBON [facility] HEALTHALT [Catalytic activity/Vol]13 U/L5 - 41 U/LBON [facility] DISTRICT HEALTHAST [Catalytic activity/Vol]13 U/LNINF - 40 U/LBON [facility] HEALTHBilirubin [Mass/Vol]0.2 mg/dLLow0.3 - 1.2 mg/dLBON [facility] HEALTHBilirubin, Indirect Can not be calculated0.0 - 1.0 mg/dLBON [facility] TRUM[facility]ULLBilirubin.indirect [Mass/Vol]mg/dLNINF - 0.3 mg/dLBON [facility] HEALTHProtein [Mass/Vol]7.1 g/dL6.4 - 8.3 g/dLBON [facility] TRUMBULLLamotrigine Levelon 02-08-2022 Lamotrigine Lvl14 ug/mL3.0 - 15.0 ug/mLR[facility] on above: Neither a therapeutic or toxic [...] Multiple measurements of lamotrigine may be needed. [facility] MEDICAL CENTERLevetiracetam Levelon [id number] Lvl42 ug/mLR[facility]ide [facility] on above: A reference range for Keppra [...] serum concentrations and toxicity is not known. [facility] CENTERNo Panel Informationon [id number] and review of laboratory resultsAbnormalLAKE [facility] HEALTHPhenobarbital Levelon [id number] and review of laboratory resultsAbnormalCJW MEDICAL CENTERPHENobarbital [Mass/Vol]13.9 ug/mLLow15 - 40 ug/mLBON [facility]CY HEALTHBON SECOURS Ad[employer]Y HEALTHXR MODIFIED BARIUM SWALLOWon 00-01-2293QY MODIFIED BARIUM SWALLOWEXAMINATION: XR MODIFIED BARIUM SWALLOW HISTORY: Dysphagia COMPARISON: [...] Electronically authenticated by: LIZZ MCCOY Date: 2021-10-04 11:[address] [place], [place] [address]BMPon 69-92-3983Sgbgj gap [Moles/Vol]12 mmol/L9 - 17 mmol/LBON [facility] HEALTHCalcium [Mass/Vol]9.3 mg/dL8.6 - 10.4 mg/dLBON [facility] HEALTHChloride [Moles/Vol]103 mmol/L98 - 107 mmol/LBON [facility] HEALTHCO2 [Moles/Vol]25 mmol/L20 - 31 mmol/LBON [facility] HEALTHCreatinine [Mass/Vol] 0.96 mg/dL0.70 - 1.20 mg/dLBON SECOURS AdlogixY HEALTHGFR >60>60 mL/minBON SECOURS AdlogixY HEALTHGFR Non->60>60 mL/minBON [facility] HEALTHGlucose [Mass/Vol]97 mg/dL70 - 99 mg/dLBON [facility] [employer] HEALTH Interpretation and review of laboratory resultsAbnormalBON [facility]ALTH Potassium [Moles/Vol]4.3 mmol/L3.7 - 5.3 mmol/LBON [facility] HEALTHSodium [Moles/Vol]140 mmol/L135 - 144 mmol/LBON SECOURS AdlogixY HEALTHUrea nitrogen (BldV) [Mass/Vol]28 mg/dLHigh8 - 23 mg/dLBON [facility] TRUMBULLUrea nitrogen/Creatinine (Bld) [Mass ratio]29HighBON [facility] AND NURSING HOMECBC with Auto Differentialon [id number] Eos #0.24BON SECOHIOHEALTH P[facility]INGTON METHODIST HOSPITALAbsolute Immature Granulocyte<0.03BON SECOHIOHE[facility]INGTON METHODIST HOSPITALAbsolute Lymph #1.49BON SECOHIOHEALTH PICKERINGTON METHODIST HOSPITALAbsolute [place] #0.81BON [facility] HEALTH Basophils (Bld) [#/Vol]0.06 10*3/uLBON [facility] HEALTHBasophils/100 WBC (Bld)1 %0 - 2 %[facility] MED[facility] CENTEREosinophils/100 WBC (Bld)3 %1 - 4 %[facility] MEDICAL CENTERHematocrit (Bld) [Volume fraction]36.2 %Low40.7 - 50.3 %[facility] MED[facility] CENTERHemoglobin (Bld) [Mass/Vol]11.5 g/dLLow13.0 - 17.0 g/dLBON [facility]ULLImmature granulocytes/100 WBC (Bld)0 %0BON [facility]ULLInterpretation and review of laboratory resultsAbnormalBON [facility] TRUMBULLLymphocytes/100 WBC (Bld)19 %Low24 - 43 %[facility] HOSPITALH (RBC) [Entitic mass]31.8 pg25.2 - 33.5 pgBON [facility] FAIRFIELD HOSPITALHC (RBC) [Mass/Vol]31.8 g/dL28.4 - 34.8 g/dLBON [facility] FAIRFIELD HOSPITALV (RBC) [Entitic vol]100.0 fL82.6 - 102.9 fLCJW MEDICAL CENTERMonocytes/100 WBC (Bld)10 %3 - 12 %[facility] MEDICAL CENTERNRBC Automated0.00.0 per 100 WBCCJW MEDICAL CENTERPlatelet distribution width (Bld) [Ratio]13.3 %11.8 - 14.4 %[facility] HEALTHPlatelet mean volume (Bld) [Entitic vol]8.8 fL8.1 - 13.5 fLINOVA ALEXANDRIA HOSPITAL HEALTHPlatelets (Bld) [#/Vol]213 10*3/uLBON [facility] RBC (Bld) [#/Vol]3.62 10*6/uLLow4.21 - 5.77 m/uLCJW MEDICAL CENTER Segmented neutrophils/100 WBC (Bld)67 %High36 - 65 %BON [facility] TRUMBULLSegs Absolute5.18BON [facility] TRUMBULLWBC (Bld) [#/Vol]7.8 10*3/uLBON [facility] TRUMBULLBON [facility] TRUM[facility]ULLCT Head WO Contraston . No acute abnormality is identified. 2. Stable appearing asymmetric atrophic change within the right cerebral hemisphere, with encephalomalacia of the right parietooccipital lobe and associated ex vacuo dilation of the right lateral ventricle, similar to the prior study. [facility] RIS CONSOLIDATEDEXAMINATION: CT OF THE HEAD WITHOUT CONTRAST 09/10/2021 [...] of the visualized skull or soft tissues. [facility] David Reeves MD - 09/10/2021 EXAMINATION: CT OF THE [...] lateral ventricle, similar to the prior study. [employer] Phone: radiology Study observation (narrative)[employer] Phone: cT Head WO ContrastOrdered By: David Miles on [id number] [employer] Phone: Laboratory - Chemistry and Chemistry - challengeon [id number]/1.73 sq M.predicted MDRD (S/P/Bld) [Vol rate/Area]LIVE [facility] Centerment on above:Average GFR for 60-69 years old: 85 mL/min/1.73sq m Chronic Kidney Disease: <60 mL/min/1.73sq m Kidney failure: <15 mL/min/1.73sq m eGFR calculated using average adult body mass. Additional eGFR calculator available at: http://www.[employer]/multiple_crcl_2012.htm Stage 1: Some kidney damage normal GFR Stage 2: Mild kidney damage GFR 60-89 Stage 3: Moderate kidney damage GFR 30-59 Stage 4: Severe kidney damage GFR 15-29 Stage 5: Severe kidney damage GFR <15 ESRD - chronic treatment by dialysis or transplant CHEMISTRYOrdered By: SYSTEM SYSTEM on 97-36-2649Gazhf gap [Moles/Vol]13 mmol/L Normal6 - 16 mEq/LFTMC RemisolCalcium [Mass/Vol]8.8 mg/dLLow8.9 - 11.1 mg/dLFTMC RemisolChloride [Moles/Vol]101 mmol/FSpjfwe026 - 111 mmol/LFTMC RemisolCO2 [Moles/Vol]22 mmol/YNwiqoz02 - 31 mmol/LFTMC RemisolCreatinine [Mass/Vol]0.9 mg/dLNormal0.5 - 1.3 mg/dLFTMC RemisolGFR/1.73 sq M.predicted among blacks MDRD (S/P/Bld) [Vol rate/Area]mL/min/1.73 n7Ricmzp>=59mL/min/1.73 m2[facility] Chem S GFR/1.73 sq M.predicted among non-blacks MDRD (S/P/Bld) [Vol rate/Area] mL/min/1.73 v5Dpeboe>=59mL/min/1.73 m2FT Chem SGlucose [Mass/Vol]95 mg/dL Udhxzr94 - 199 mg/dLFTMC RemisolPotassium [Moles/Vol]4.4 mmol/LNormal3.5 - 5.3 mmol/LFTMC RemisolSodium [Moles/Vol]132 mmol/RLod423 - 145 mmol/LFTMC Remisol Urea nitrogen [Mass/Vol]13 mg/dLNormal5 - 21 mg/dLFTMC RemisolUrea nitrogen/Creatinine [Mass ratio]14 mg/yuZsdxtc43 - 20FTMC RemisolHEMATOLOGY Ordered By: WEISSENHAUS on 98-58-2371Hknjrztmt/100 WBC (Bld)1.1 %Normal0.0 - 2.0 %[facility] HemeAutoSSBasophils/Leukocytes Auto (Bld) [Pure # fraction]0.1 E9/L Normal0.0 - 0.2 E9/LFTMC HemeAutoSSEosinophils/100 WBC (Bld)6.0 %Normal0.0 - 8.0 %[facility] HemeAutoSSEosinophils/Leukocytes Auto (Bld) [Pure # fraction]0.5 E9/L Normal0.0 - 0.5 E9/LFTMC HemeAutoSSLymphocytes/100 WBC (Bld)21.0 %Qcapfr79.0 - 50.0 %[facility] HemeAutoSSLymphocytes/Leukocytes Auto (Bld) [Pure # fraction]1.7 E9/L Normal1.0 - 4.0 E9/LFTMC HemeAutoSSMonocytes/100 WBC (Bld)8.0 %Normal4.0 - 14.0 %[facility] HemeAutoSSMonocytes/Leukocytes Auto (Bld) [Pure # fraction]0.6 E9/LNormal 0.2 - 1.0 E9/LFTMC HemeAutoSSNeutrophils/100 WBC (Bld)63.9 %Smkkzp86.0 - 75.0 % [facility] HemeAutoSSNeutrophils/Leukocytes Auto (Bld) [Pure # fraction]5.1 E9/LNormal 2.0 - 7.5 E9/LFTMC HemeAutoSSHEMATOLOGYOrdered By: Gisselle See on 94-43-9409Ffiwcnwcoco distribution width (RBC) [Ratio]13.8 %Gdnrhf81.9 - 14.2 % [facility] HemeAutoSSHematocrit (Bld) [Volume fraction]32.0 %Low37.7 - 49.0 %[facility] HemeAutoSSHemoglobin (Bld) [Mass/Vol]10.8 g/dLLow13.5 - 17.5 gm/dLFTMC HemeAutoSSMCH (RBC) [Entitic mass]32.5 bnFqfzzv45.0 - 34.0 pgFTMC HemeAutoSSMCHC (RBC) [Mass/Vol]33.8 g/yDHpnedc44.4 - 36.0 gm/dLFTMC HemeAutoSSMCV (RBC) [Entitic vol]96.0 uYScvhzz04.0 - 100.0 fLFTMC HemeAutoSSPlatelet mean volume (Bld) [Entitic vol]6.9 fLNormal6.4 - 10.8 fLFTMC HemeAutoSSPlatelets (Bld) [#/Vol]462.0 E9/FSpkozx932.0 - 500.0 E9/LFTMC HemeAutoSSRBC (Bld) [#/Vol]3.3 E12/LLow4.3 - 5.9 E12/LFTMC HemeAutoSSWBC corrected for nucl RBC Auto (Bld) [#/Vol]7.9 E9/LNormal4.0 - 11.0 E9/LFTMC HemeAutoSSCHEMISTRYOrdered By: SYSTEM SYSTEM on 18-48-8466Dkenuqwkuk [Mass/Vol]0.9 mg/dLNormal0.5 - 1.3 mg/dLFTMC RemisolGFR/1.73 sq M.predicted among blacks MDRD (S/P/Bld) [Vol rate/Area] mL/min/1.73 i3Neqhjp>=59mL/min/1.73 m2[facility] Chem SGFR/1.73 sq M.predicted among non-blacks MDRD (S/P/Bld) [Vol rate/Area]mL/min/1.73 h8Hxzcqq>=59mL/min/1.73 m2 [facility] Chem SHEMATOLOGYOrdered By: SYSTEM SYSTEM on 88-93-9794Regqlyqiy/100 WBC (Bld)0.4 %Normal0.0 - 2.0 %[facility] HemeAutoSSBasophils/Leukocytes Auto (Bld) [Pure # fraction]0.0 E9/LNormal0.0 - 0.2 E9/LFTMC HemeAutoSSEosinophils/100 WBC (Bld) 7.1 %Normal0.0 - 8.0 %[facility] HemeAutoSSEosinophils/Leukocytes Auto (Bld) [Pure # fraction]0.7 E9/LHigh0.0 - 0.5 E9/LFTMC HemeAutoSSLymphocytes/100 WBC (Bld)14.1 %Oawngs28.0 - 50.0 %[facility] HemeAutoSSLymphocytes/Leukocytes Auto (Bld) [Pure # fraction]1.3 E9/LNormal1.0 - 4.0 E9/LFTMC HemeAutoSSMonocytes/100 WBC (Bld)9.6 % Normal4.0 - 14.0 %[facility] HemeAutoSSMonocytes/Leukocytes Auto (Bld) [Pure # fraction]0.9 E9/LNormal0.2 - 1.0 E9/LFTMC HemeAutoSSNeutrophils/100 WBC (Bld) 68.8 %Lcmvsd74.0 - 75.0 %[facility] HemeAutoSSNeutrophils/Leukocytes Auto (Bld) [Pure # fraction]6.5 E9/LNormal2.0 - 7.5 E9/LFTMC HemeAutoSSHEMATOLOGYOrdered By: Lili Naranjo on 19-84-7636Ihbiaehuick distribution width (RBC) [Ratio]13.7 % Zgqnyh70.9 - 14.2 %[facility] HemeAutoSSHematocrit (Bld) [Volume fraction]27.3 %Low 37.7 - 49.0 %[facility] HemeAutoSSHemoglobin (Bld) [Mass/Vol]9.4 g/dLLow13.5 - 17.5 gm/dLFTMC HemeAutoSSMCH (RBC) [Entitic mass]33.6 opGwqfml30.0 - 34.0 pgFTMC HemeAutoSSMCHC (RBC) [Mass/Vol]34.5 g/pNAdlsvg18.4 - 36.0 gm/dLFTMC HemeAutoSS MCV (RBC) [Entitic vol]97.3 tPXpsslt44.0 - 100.0 fLFTMC HemeAutoSSPlatelet mean volume (Bld) [Entitic vol]7.6 fLNormal6.4 - 10.8 fLFTMC HemeAutoSSPlatelets (Bld) [#/Vol]290.0 E9/KJtbbnx916.0 - 500.0 E9/LFTMC HemeAutoSSRBC (Bld) [#/Vol] 2.8 E12/LLow4.3 - 5.9 E12/LFTMC HemeAutoSSWBC corrected for nucl RBC Auto (Bld) [#/Vol]9.5 E9/LNormal4.0 - 11.0 E9/LFTMC HemeAutoSSComment on above:Result Comment: Slide reviewed by cmk.CHEMISTRYOrdered By: SYSTEM SYSTEM on 06-28-2021 Anion gap [Moles/Vol]14 mmol/LNormal6 - 16 mEq/LFTMC RemisolCalcium [Mass/Vol] 8.2 mg/dLLow8.9 - 11.1 mg/dLFTMC RemisolChloride [Moles/Vol]104 mmol/OMibhum402 - 111 mmol/LFTMC RemisolCO2 [Moles/Vol]23 mmol/QBuvkzi79 - 31 mmol/LFTMC Remisol Creatinine [Mass/Vol]0.8 mg/dLNormal0.5 - 1.3 mg/dLFTMC RemisolGFR/1.73 sq M.predicted among blacks MDRD (S/P/Bld) [Vol rate/Area]mL/min/1.73 y6Jqughy >=59mL/min/1.73 m2FT Chem SGFR/1.73 sq M.predicted among non-blacks MDRD (S/P/Bld) [Vol rate/Area]mL/min/1.73 u3Enikpc>=59mL/min/1.[address] [address] Chem S Glucose [Mass/Vol]106 mg/iZRlckov67 - 199 mg/dLFTMC RemisolPotassium [Moles/Vol] 4.6 mmol/LNormal3.5 - 5.3 mmol/LFTMC RemisolSodium [Moles/Vol]136 mmol/LNormal 135 - 145 mmol/LFTMC RemisolUrea nitrogen [Mass/Vol]13 mg/dLNormal5 - 21 mg/dL [facility] RemisolUrea nitrogen/Creatinine [Mass ratio]16 mg/ccWqegoo64 - 20[facility] RemisolHEMATOLOGYOrdered By: SYSTEM SYSTEM on 92-95-5834Mwquwoqyg/100 WBC (Bld) 0.2 %Normal0.0 - 2.0 %[facility] HemeAutoSSBasophils/Leukocytes Auto (Bld) [Pure # fraction]0.0 E9/LNormal0.0 - 0.2 E9/LFTMC HemeAutoSSEosinophils/100 WBC (Bld)3.9 %Normal0.0 - 8.0 %[facility] HemeAutoSSEosinophils/Leukocytes Auto (Bld) [Pure # fraction]0.6 E9/LHigh0.0 - 0.5 E9/LFTMC HemeAutoSSLymphocytes/100 WBC (Bld)11.7 %Low14.0 - 50.0 %[facility] HemeAutoSSLymphocytes/Leukocytes Auto (Bld) [Pure # fraction]1.8 E9/LNormal1.0 - 4.0 E9/LFTMC HemeAutoSSMonocytes/100 WBC (Bld)9.3 % Normal4.0 - 14.0 %[facility] HemeAutoSSMonocytes/Leukocytes Auto (Bld) [Pure # fraction]1.4 E9/LHigh0.2 - 1.0 E9/LFTMC HemeAutoSSNeutrophils/100 WBC (Bld)74.9 %Mlmyel32.0 - 75.0 %[facility] HemeAutoSSNeutrophils/Leukocytes Auto (Bld) [Pure # fraction]11.6 E9/LHigh2.0 - 7.5 E9/LFTMC HemeAutoSSHEMATOLOGYOrdered By: Nava Booth on 91-35-3985Dbbxoxjooac distribution width (RBC) [Ratio]13.6 %Normal 10.9 - 14.2 %[facility] HemeAutoSSHematocrit (Bld) [Volume fraction]27.9 %Low37.7 - 49.0 %[facility] HemeAutoSSHemoglobin (Bld) [Mass/Vol]9.3 g/dLLow13.5 - 17.5 gm/dLFTMC HemeAutoSSMCH (RBC) [Entitic mass]32.0 uhFplycl99.0 - 34.0 pgFTMC HemeAutoSS MCHC (RBC) [Mass/Vol]33.5 g/qEXbejew74.4 - 36.0 gm/dLFTMC HemeAutoSSMCV (RBC) [Entitic vol]95.3 hWNkvean29.0 - 100.0 fLFTMC HemeAutoSSPlatelet mean volume (Bld) [Entitic vol]6.7 fLNormal6.4 - 10.8 fLFTMC HemeAutoSSPlatelets (Bld) [#/Vol]340.0 E9/AWcirzq020.0 - 500.0 E9/LFTMC HemeAutoSSRBC (Bld) [#/Vol]2.9 E12/LLow4.3 - 5.9 E12/LFTMC HemeAutoSSWBC corrected for nucl RBC Auto (Bld) [#/Vol]15.5 E9/LHigh4.0 - 11.0 E9/LFTMC HemeAutoSSComment on above:Result Comment: Slide reviewed by FIORDALIZA.PENICILLIN:SUSC:PT:ISOLATE:ORDQN:MICon 06-27-2021 Penicillin CARMEN [Susc]3+ Staphylococcus [facility]Day[facility] Penicillin CARMEN [Susc]on [id number]+ White Blood Cells 2+ Gram Positive CoccOhioHealth Berger Hospitaltaphylococcus aureus Staphylococcus aureusDayton Children'S HospitalCHEMISTRYOrdered By: SYSTEM SYSTEM on 87-69-1795Nrwpo gap [Moles/Vol]16 mmol/LNormal6 - 16 mEq/LFTMC Remisol Calcium [Mass/Vol]8.2 mg/dLLow8.9 - 11.1 mg/dLFTMC RemisolChloride [Moles/Vol]97 mmol/ZUum892 - 111 mmol/LFTMC RemisolCO2 [Moles/Vol]29 mmol/STwvajk66 - 31 mmol/LFTMC RemisolGlucose [Mass/Vol]127 mg/hLNrqdxf08 - 199 mg/dLFTMC Remisol Magnesium [Mass/Vol]1.6 mg/dLNormal1.3 - 2.4 mg/dLFTMC RemisolPhosphate [Mass/Vol]2.3 mg/dLNormal1.9 - 4.6 mg/dLFT[facility] RemisolPotassium [Moles/Vol]3.5 mmol/LNormal3.5 - 5.3 mmol/LFTMC RemisolSodium [Moles/Vol]138 mmol/KDmtmzw995 - 145 mmol/LFTMC RemisolUrea nitrogen [Mass/Vol]10 mg/dLNormal5 - 21 mg/dLFTMC RemisolUrea nitrogen/Creatinine [Mass ratio]9 mg/mgLow10 - 20[facility] RemisolMICRO OTHER TESTSOrdered By: Blanca Toney on 51-54-3011Xsdta COV Int NEG CtlPass (06/24/21 1:11 PM)NormalFTMC Man SeroRapid COV Int POS CtlPass (06/24/21 1:11 PM)NormalFTMC Man SeroSARS-CoV+SARS-CoV-2 (COVID-19) Ag IA.rapid Ql (Resp)Not Detected (06/24/21 1:11 PM)NormalNot DetectedFTMC Man SeroCHEMISTRYOrdered By: Lab MYASocorro General Hospitalr on 56-74-3298Qrcvatv [Mass/Vol]98 mg/bGYlqmlm91 - 99 mg/dLFTMC POC Subsection Comment on above:Result Comment: Notified RN/MDPOC Device [id number] Interpretation CodeFTMC POC SubsectionPOC User [id number] Interpretation CodeFTMC POC SubsectionPOC UsernameBkye MelissaInvalid Interpretation Code [facility] POC SubsectionCHEMISTRYOrdered By: Lab Norrisr on 52-17-2411Hghszrp [Mass/Vol]103 mg/nYEirq46 - 99 mg/dLFTMC POC SubsectionComment on above:Result Comment: Notified RN/MDPOC Device [id number] Interpretation CodeFTMC POC SubsectionPOC User [id number] Interpretation CodeFT[facility] POC Subsection POC UsernameMCQUILLEN, BENJAMINInvalid Interpretation CodeFTMC POC Subsection MICRO OTHER TESTSOrdered By: Arnol Thapa on 10-75-5127Uyljl COV Int NEG CtlPass (06/20/21 11:22 AM)NormalFTMC Man SeroRapid COV Int POS CtlPass (06/20/21 11:22 AM)NormalFTMC Man SeroSARS-CoV+SARS-CoV-2 (COVID-19) Ag IA.rapid Ql (Resp)Not Detected (06/20/21 11:22 AM)NormalNot DetectedFT Man SeroCHEMISTRYOrdered By: Sandip Young on 51-26-6032Bkoskkf [Mass/Vol]95 mg/sNFwoawb78 - [address] mg/[address] [facility] [place] POC SubsectionPOC Device [id number] Interpretation CodeASCENSION ST. [facility] [place] POC SubsectionPOC User [id number] Interpretation CodeASCENSION ST. [facility] [place] POC SubsectionPOC UsernamDYLAN DaltonFEInvalid Interpretation CodeASCENSION ST. [facility] [place] [facility] Subsection CEFAZOLIN:SUSC:PT:ISOLATE:ORDQN:MICon [id number] CARMEN [Susc]5,000 cfu/ml Staphylococcus epidermidisDayton Children'S HospitalURINALYSISOrdered By: Nava Booth on 28-74-1332Nmvjqyxu LM Ql (Urine sed)Trace /HPFNormalTrace/HPF [facility] UA Auto SSBilirubin Ql (U)2+ *ABN* (06/14/21 8:53 AM)Invalid Interpretation CodeNegativeASCENSION ST. [facility] [place] [facility] Auto SSClarity (U) Slightly Cloudy *ABN* (06/14/21 8:53 AM)Invalid Interpretation CodeClearFINSPIRE [facility] UA Auto SSColor (U)Dark Yellow *ABN* (06/14/21 8:53 AM)Invalid Interpretation CodeYellowASCENSION ST. [facility] [place] [facility] Auto SSEpithelial cells.squamous LM.HPF (Urine sed) [#/Area]0-2 /HPFNormal0-2/HPFASCENSION [address] [facility] [place] [facility] Auto SS Glucose Test strip (U) [Mass/Vol]Negative (06/14/21 8:53 AM)NormalNegativeASCENSION ST. [facility] [place] [facility] Auto SSHemoglobin Ql (U)2+ *ABN* (06/14/21 8:53 AM)Invalid Interpretation CodeNegativeASCENSION ST[facility] [place] [facility] Auto SSKetones (U) [Mass/Vol]3+ *ABN* (06/14/21 8:53 AM)Invalid Interpretation CodeNegativeASCENSION ST[facility] [place] [facility] Auto SS Pinnacle.plasma/Pinnacle.RBC (Bld) [Mass ratio]4-20 /HPFNormal0-3/HPFASCENSION [address] [place] [facility] Auto SSMucus Ql (Urine sed)Trace (06/14/21 8:53 AM)NormalASCENSION ST[facility] [place] [facility] Auto SSNitrite Ql (U)Negative (06/14/21 8:53 AM)NormalNegativeASCENSION ST[facility] [place] [facility] Auto SSpH (U)7.0 *NA* (06/14/21 8:53 AM)Invalid Interpretation Code5.0 - 9.0[facility] [place] Auto SSProtein (U) [Mass/Vol]1+ *ABN* (06/14/21 8:53 AM)Invalid Interpretation CodeNegativeASCENSION ST[facility] [place] [facility] Auto SSSpecific gravity (U) [Rel density]1.020 *NA* (06/14/21 8:53 AM)Invalid Interpretation Code1.005 - 1.030[facility] [place] UA Auto SSUA Spec DescFoley (06/14/21 8:53 AM)NormalASCENSION ST[facility] [place] [facility] Auto SSUrobilinogen Qn (U)2.4514620 {Kole'U}/dLInvalid Interpretation Code0.0 - 1.0 EU/dLASCENSION ST[address] [facility] [place] [facility] Auto SSWBC Auto Ql (U)Trace *ABN* (06/14/21 8:53 AM)Invalid Interpretation CodeNegativeASCENSION ST[facility] [place] [facility] Auto SSWBC LM.HPF (Urine sed) [#/Area]/[HPF]Invalid Interpretation Code0-5/HPFASCENSION ST. [facility] [place] [facility] Auto SS ceFAZolin CARMEN [Susc]on 19-02-2031Yvktknvkvyqdhk epidermidisStaphylococcus epidermidisDayton Children'S HospitalBLOOD BANKOrdered By: Jaquelin Hooker on 62-77-8733DXI/Rh InterpPositiveInvalid Interpretation CodeASCENSION ST. [facility] [place] BB SubsectionABSC Gel InterpNegative (06/13/21 12:10 PM)NormalASCENSION [address] [facility] [place] BB SubsectionBLOOD BANKOrdered By: Jaquelin Hooker on 78-88-9392BBE/Rh Retype InterpPositiveInvalid Interpretation CodeASCENSION ST. [facility] [place] BB SubsectionCOAGULATIONOrdered By: David Forrester on 52-87-0959zJAM Coag (PPP) [Time]34.0 xYyzxns83.1 - 36.5 second(s)[facility] Auto CoagINR Coag (PPP) [Relative time]1.3 {INR}Invalid Interpretation CodeASCENSION ST[facility] [place] Auto CoagPT Coag (PPP) [Time]15.3 sHigh10.2 - 12.9 second(s)[facility] Auto CoagCBC AUTO DIFFon [id number] #0.1 103/ulNormal0.0-0.1The Mercy HospitalComment on above:Performed By: #### CBC #### [facility] [address] [address] [address] Randi BlackBasophils/100 WBC (Bld)0.4 %Normal0.2-2.0[facility] Comment on above:Performed By: #### CBC #### [facility] [address] [place] [address] Dr. Randi Stockton #0.0 103/ulNormal0.0-0.7The [facility]cy HospitalComment on above: Performed By: #### CBC #### [facility] [address] [place] [address] Dr. Randi Pompaosinophils/100 WBC (Bld)0.1 %Critically low0.9-7.0The [facility]cy HospitalComment on above:Performed By: #### CBC #### [facility] [address] [place] [address] Dr. Randi Pomparythrocyte distribution width (RBC) [Ratio]12.7 %Inlguw77.0-15.0 The Mercy HospitalComment on above:Performed By: #### CBC #### [facility] [address] [place] [address] Dr. Randi BlackHematocrit (Bld) [Volume fraction]47.5 %Bojgfc31.0-54.0The [facility]cy HospitalComment on above:Performed By: #### CBC #### [facility] [address] [place] [address] Dr. Randi BlackHemoglobin (Bld) [Mass/Vol]15.5 g/hUTajogg19.0-18.0The [facility]cy HospitalComment on above:Performed By: #### CBC #### [facility] [address] [place] [address] Dr. Randi Ortiz #0.05 10e3/ulCritically high0.00-0.03[facility] Comment on above:Performed By: #### CBC #### [facility] [address] [place] [address] Dr. Randi Ortiz %0.4 %Normal0.0-0.5The [facility]cy HospitalComment on above: Performed By: #### CBC #### [facility] [address] [place] [address] Dr. Randi Vance #0.9 103/ulCritically low1.2-3.8[facility] Comment on above:Performed By: #### CBC #### [facility] [address] [place] [address] Dr. Randi Mccoyhocytes/100 WBC (Bld)6.4 %Critically low20.5-60.0The [facility]cy HospitalComment on above:Performed By: #### CBC #### [facility] [address] [place] [address] Dr. Randi Mckee DIFF REQNONormalThe Mercy HospitalComment on above: Performed By: #### CBC #### [facility] [address] [place] [address] Dr. Randi Echevarria (RBC) [Entitic mass]32.2 xtTuwmid52.9-34.0The [facility]cy HospitalComment on above:Performed By: #### CBC #### [facility] [address] [place] [address] Dr. Randi Flores (RBC) [Mass/Vol]32.6 g/jGKnuseq16.9-35.2The [facility]cy HospitalComment on above:Performed By: #### CBC #### [facility] [address] [place] [address] Dr. Randi Packer (RBC) [Entitic vol]98.5 fLCritically high80.0-94.0The [facility]cy HospitalComment on above:Performed By: #### CBC #### [facility] [address] [place] [address] Dr. Randi Jimenez #0.6 103/ulNormal0.3-0.8The Mercy HospitalComment on above:Performed By: #### CBC #### [facility] [address] [place] [address] Dr. Yilan ChangMonocytes/100 WBC (Bld)4.5 %Normal1.7-12.0[facility] Comment on above:Performed By: #### CBC #### [facility] [address] [place] [address] Dr. Randi Trevino #11.9 103/ulCritically high1.4-6.5[facility] Comment on above:Performed By: #### CBC #### [facility] [address] [place] [address] Dr. Randi Trimbleutrophils/100 WBC (Bld)88.2 %Critically high43.0-75.0The [facility]cy HospitalComment on above:Performed By: #### CBC #### [facility] [address] [place] [address] Dr. Randi Ellislet mean volume (Bld) [Entitic vol]8.7 fLCritically low 9.5-13.5The [facility] HospitalComment on above:Performed By: #### CBC #### [facility] [address] [place] [address] Dr. Randi BlackPLT245 103/ifOanpqe738-082Ujj Mercy HospitalComment on above: Performed By: #### CBC #### [facility] [address] [place] [address] Dr. Randi BlackRBC4.82 106/ulNormal4.70-6.10The [facility] HospitalComment on above:Performed By: #### CBC #### [facility] [address] [place] [address] Dr. Randi BlackWBC13.5 103/ulCritically high4.0-11.0The [facility]cy HospitalComment on above:Performed By: #### CBC #### [facility] [address] [place] [address] Dr. Randi BlackCHEMISTRYOrdered By: SYSTEM SYSTEM on 46-15-2376Cmarkxr [Mass/Vol]4.6 g/dLNormal3.3 - 5.0 gm/dLFTMC RemisolAlbumin/Globulin [Mass ratio] 1.1 {ratio}Normal1.1 - 2.2FT[facility] RemisolALP [Catalytic activity/Vol]139 [iU]/dHigh 21 - 98 Int._Unit/LFTMC RemisolALT No additional P-5'-P [Catalytic activity/Vol] 19 [iU]/dNormal6 - 46 Int._Unit/LFTMC RemisolAST [Catalytic activity/Vol]20 [iU]/dNormal5 - 43 Int._Unit/LFTMC RemisolBilirubin [Mass/Vol]0.8 mg/dLNormal0.0 - 1.1 mg/dLFTMC RemisolBilirubin.direct [Mass/Vol]0.2 mg/dLNormal0.1 - 0.4 mg/dLFTMC RemisolBilirubin.indirect [Mass or moles/Vol]0.6 mg/dLNormal0.1 - 0.9 mg/dLFTMC RemisolGlobulin (S) [Mass/Vol]4.3 g/dLHigh1.4 - 4.0 gm/dLFTMC Remisol Lactate [Mass/Vol]1.3 mmol/LNormal0.5 - 2.2 mmol/LFTMC RemisolLipase [Catalytic activity/Vol]46 U/FGbgjka80 - 58 unit/LFTMC RemisolProtein [Mass/Vol]8.9 g/dL High6.0 - 7.8 gm/dLFTMC RemisolCT ABD/PELVIS WO CONon [id number] ABD/PELVIS WO CONEXAMINATION: CT ABD/PELVIS WO CON, 06/11/2021 12:35 PM [...] Electronically authenticated by: MOR FAULKNER Date: 2021-06-11 13:23NormalThe [place] City HospitalLACTATE/LACTIC ACIDon 23-59-2099Bxorbal [Moles/Vol]2.8 mmol/L Critically high0.7-2.0The Mercy HospitalComment on above:Performed By: #### LACT #### [facility] [address] [place] [address] Dr. Randi BlackLIPASEon 20-37-0148Kpjabk [Catalytic activity/Vol]184.0 U/LNormal 23.0-300.0The [facility] HospitalComment on above:Performed By: #### LIPA #### [facility] [address] [place] [address] Dr. Randi Berry Panel Informationon 42-24-5271Oabbe Culture CharcoalNo growth at 7 days.[facility]'S HospitalBlood Culture CharcoalNo growth at 7 days.[facility]'S HospitalPROF 14(COMP METB)on 96-59-2064Dktmhlr [Mass/Vol]4.1 g/dLNormal3.4-5.0The [facility] HospitalComment on above:Performed By: #### CMP #### [facility] [address] [place] [address] Dr. Randi BlackAlbumin/Globulin [Mass ratio]0.9 {ratio}NormalThe The MetroHealth Systemment on above:Performed By: #### CMP #### [facility] [address] [place] [address] Dr. Randi Parks [Catalytic activity/Vol]164 U/LCritically njkd49-505Htx The MetroHealth Systemment on above:Performed By: #### CMP #### [facility] [address] [place] [address] Dr. Randi FajardoT [Catalytic activity/Vol]22 U/JVcwdqr20-36Zda [place] HospitalComment on above:Performed By: #### CMP #### [facility] [address] [address] [address] Randi Guadalupe gap [Moles/Vol]15.1 mmol/LNormalThe [facility] Comment on above:Performed By: #### CMP #### [facility] [address] [address] [address] Randi BlackAST [Catalytic activity/Vol]14 U/LCritically twf79-54Izs [facility]cy HospitalComment on above:Performed By: #### CMP #### [facility] [address] [address] [address] Randi BlackBilirubin [Mass/Vol]0.3 mg/dLNormal0.2-1.3[facility] Comment on above:Performed By: #### CMP #### [facility] [address] [address] [address] Randi BlackCalcium [Mass/Vol]9.3 mg/dLNormal8.5-10.1[facility] Comment on above:Performed By: #### CMP #### [facility] [address] [address] [address] Randi BlackChloride [Moles/Vol]100 mmol/BDtepra14-188QygSelect Medical Specialty [facility] [place] Comment on above:Performed By: #### CMP #### [facility] [address] [address] [address] Randi BlackCO2 [Moles/Vol]26.6 mmol/WYmkezc72.0-30.0[facility] Comment on above:Performed By: #### CMP #### [facility] [address] [address] [address] Randi BlackCreatinine [Mass/Vol]1.31 mg/dLCritically high0.66-1.25The [facility]cy HospitalComment on above:Performed By: #### CMP #### [facility] [address] [address] [address] Bryan ChangEGFR-AF COSTA RICAN>60Normal>=60The [facility]cy HospitalComment on above:Performed By: #### CMP #### [facility] [address] [address] [address] Randi PompaGFR-NON AF IOVIHBBN53 mL/min/1.18b8Sofruuciva low>=60The [facility] HospitalComment on above:Performed By: #### CMP #### [facility] [address] [address] [address] Randi BlackGlobulin (S) [Mass/Vol]4.5 g/dLNoVeterans Health AdministrationComment on above:Performed By: #### CMP #### [facility] [address] [address] [address] Randi BlackGlucose [Mass/Vol]112 mg/dLCritically jmju36-701Xqq [facility] HospitalComment on above:Performed By: #### CMP #### [facility] [address] [address] [address] Randi BlackPotassium [Moles/Vol]3.7 mmol/LNormal3.4-5.0[facility] Comment on above:Performed By: #### CMP #### [facility] [address] [address] [address] Randi BlackProtein [Mass/Vol]8.6 g/dLCritically high6.1-8.2The [facility] HospitalComment on above:Performed By: #### CMP #### [facility] [address] [address] [address] Randi BlackSodium [Moles/Vol]138 mmol/SYwvaqo935-920Jzi [facility] Comment on above:Performed By: #### CMP #### [facility] [address] [address] [address] Randi BlackUrea nitrogen [Mass/Vol]26.0 mg/dLCritically high7.0-18.0The [facility] HospitalComment on above:Performed By: #### CMP #### [facility] [address] [address] [address] Randi BlackUrea nitrogen/Creatinine [Mass ratio]19.8 mg/mgNoVeterans Health AdministrationComment on above:Performed By: #### CMP #### [facility] [address] [place] [address] Dr. Randi BlackXR CHEST 1 Von 21-10-6294OP CHEST 1 VEXAM: XR CHEST 1 V HISTORY: Neoplastic disease.NG [...] Its tip is not included in the xjavs-od-csbv, but it is located below the left hemidiaphragm. Electronically authenticated by: IRWIN QUICK Date: 2021-06-11 15:00[facility]XR [facility] 1 VEXAM: XR CHEST 1 V HISTORY: SHORTNESS OF BREATH COMPARISON: 10/02/2020 TECHNIQUE: Portable AP chest 12:32 PM FINDINGS: Lungs are clear and heart size is normal. No pleural effusion or pneumothorax. IMPRESSION: No acute findings Electronically authenticated by: MOR FAULKNER Date: 2021-06-11 13:15NSelect [facility] - ColumbusXR ABD FLAT_UPon [id number] ABD FLAT_UPEXAMINATION: XR ABD FLAT_UP HISTORY: Abdominal colic COMPARISON: [...] Electronically authenticated by: DAVID TSANG Date: 2021-02-28 14:42[facility] HospitalBasic Metabolic PanelOrdered By: Carson Dior on 08-18-2020 Anion gap [Moles/Vol]7 mmol/LLow9 - 17 mmol/LMercy Health Work Phone: calcium [Mass/Vol]9.5 mg/dL8.6 - 10.4 mg/dLSumma Health Attunity Work Phone: chloride [Moles/Vol]103 mmol/L98 - 107 mmol/LMsumma healthy Health Work Phone: cO2 [Moles/Vol]28 mmol/L20 - 31 mmol/LMercy Attunity Work Phone: creatinine [Mass/Vol]1.17 mg/dL0.70 - 1.20 mg/dLSumma Health Attunity Work Phone: GFR >60>60 mL/minSumma Health Attunity Work Phone: GFR Non->60>60 mL/minSumma Health Attunity Work Phone: Glucose [Mass/Vol]80 mg/dL70 - 99 mg/dLSumma Health Recombine Phone: potassium [Moles/Vol]4.9 mmol/L3.7 - 5.3 mmol/LMnorwalk memorial hospital Attunity Work Phone: sodium [Moles/Vol]138 mmol/L135 - 144 mmol/LMsumma healthy Attunity Work Phone: Urea nitrogen (BldV) [Mass/Vol]21 mg/dL8 - 23 mg/dL [facility] Phone: Urea nitrogen/Creatinine (Bld) [Mass ratio]18[facility] Phone: cBC Auto DifferentialOrdered By: Carson Dior on 21-46-7511Ilspneyj Eos #0.23[facility] Work Phone: absolute Immature Granulocyte0.03[facility] Work Phone: absolute Lymph #1.63[facility] Phone: absolute [place] #0.52[facility] Phone: basophils (Bld) [#/Vol]0.05 10*3/uLSumma Health Attunity Work Phone: basophils/100 WBC (Bld)1 %0 - 2 %[facility] Phone: differential TypeNOT REPORTEDPurfresh Phone: eosinophils/100 WBC (Bld)3 %1 - 4 %[facility] Phone: Hematocrit (Bld) [Volume fraction]40.7 %40.7 - 50.3 % [employer] Phone: Hemoglobin.gastrointestinal spec 1 Ql (Stl)12.9 g/dL Low13.0 - 17.0 g/dLUc HealthWatchDox Phone: Immature granulocytes/100 WBC (Bld)0 %0[facility] Phone: Interpretation and review of laboratory results AbnormalUc HealthWatchDox Phone: lymphocytes/100 WBC (Bld)21 %Low24 - 43 %[facility] Phone: MCH (RBC) [Entitic mass]32.0 pg25.2 - 33.5 pgUc HealthWatchDox Phone: MCHC (RBC) [Mass/Vol]31.7 g/dL28.4 - 34.8 g/dLUc HealthWatchDox Phone: MCV (RBC) [Entitic vol]101.0 fL82.6 - 102.9 fLUc HealthWatchDox Phone: Monocytes/100 WBC (Bld)7 %3 - 12 %[facility] Phone: NRBC Automated0.00.0 per 100 WBCPurfresh Phone: platelet distribution width (Bld) [Ratio]12.4 %11.8 - 14.4 %[facility] Phone: platelet EstimateNOT REPORTEDPurfresh Phone: Platelet mean volume (Bld) [Entitic vol]9.1 fL8.1 - 13.5 fLUc HealthWatchDox Phone: [phone] (Bld) [#/Vol]225 10*3/uLMerCombineNet Work Phone: [phone] (Bld) [#/Vol]4.03 10*6/uLLow4.21 - 5.77 m/uLUc HealthWatchDox Phone: [phone] (Bld) [#/Vol]NOT REPORTEDUc HealthWatchDox Phone: Segmented neutrophils/100 WBC (Bld)68 %High36 - 65 % [facility] HospitalTUTORize Phone: Segs Absolute5.33[facility] Phone: [phone] (Bld) [#/Vol]7.8 10*3/uLUc HealthWatchDox Phone: WBC (Bld) [#/Vol]NOT REPORTEDUc HealthWatchDox Phone: [facility] Work Phone: Hepatic Function PanelOrdered By: Carson Dior on 10-01-5585Qdgqexv [Mass/Vol]3.9 g/dL3.5 - 5.2 g/dLUc HealthWatchDox Phone: albumin/Globulin [Mass ratio]1.2 {ratio}[facility] Phone: ALP (Bld) [Catalytic activity/Vol]141 U/LHigh40 - 129 U/LMsumma healthPavlov Media Work Phone: aLT [Catalytic activity/Vol]18 U/L5 - 41 U/LMcashcloud Phone: aST [Catalytic activity/Vol]16 U/L<40[facility] Phone: bilirubin [Mass/Vol]0.24 mg/dLLow0.3 - 1.2 mg/dLUc HealthWatchDox Phone: bilirubin, IndirectCANNOT BE CALCULATED0.00 - 1.00 mg/dLPurfresh Phone: bilirubin.indirect [Mass/Vol]mg/dL<0.31 mg/dLPurfresh Phone: Free PSA/Total PSA [Mass fraction]7.2 g/dL6.4 - 8.3 g/dLUc HealthWatchDox Phone: GlobulinNOT REPORTED1.5 - 3.8 g/dLUc HealthWatchDox Phone: laboratory - Chemistry and Chemistry - challenge Ordered By: Carson Dior on 58-25-4532ZTB/1.73 sq M.predicted MDRD (S/P/Bld) [Vol rate/Area][facility] Phone: comment on above:Average GFR for 60-69 years old: 85 mL/min/1.73sq m Chronic Kidney Disease: <60 mL/min/1.73sq m Kidney failure: <15 mL/min/1.73sq m eGFR calculated using average adult body mass. Additional eGFR calculator available at: http://www.[employer]/multiple_crcl_2012.htm Stage 1: Some kidney damage normal GFR Stage 2: Mild kidney damage GFR 60-89 Stage 3: Moderate kidney damage GFR 30-59 Stage 4: Severe kidney damage GFR 15-29 Stage 5: Severe kidney damage GFR <15 ESRD - chronic treatment by dialysis or transplant Lipid PanelOrdered By: Carson Dior on 40-45-1520Phbyjqhzmfu [Mass/Vol]155 mg/dL <200[facility] Phone: comment on above: Cholesterol Guidelines: <200 Desirable 200-240 Borderline >240 Undesirable Cholesterol in HDL [Mass/Vol]55 mg/dL>40[facility] Phone: comment on above: HDL Guidelines: <40 Undesirable 40-59 Borderline >59 Desirable Cholesterol in LDL [Mass/Vol]91 mg/dL0 - 130 mg/dLPurfresh Phone: comment on above: LDL Guidelines: <100 Desirable 100-129 Near to/above Desirable 130-159 Borderline >159 Undesirable Direct (measured) LDL and calculated LDL are not interchangeable tests. Cholesterol in VLDL [Mass/Vol]NOT REPORTED1 - 30 mg/dLPurfresh Phone: cholesterol.total/Cholesterol in HDL [Mass ratio]2.8 {ratio}<5[facility] Phone: Triglyceride [Mass/Vol]46 mg/dL<150[facility] Phone: comment on above: Triglyceride Guidelines: <150 Desirable 150-199 Borderline 200-499 High >499 Very high Based on AHA Guidelines for fasting triglyceride, December 2011. [employer] Phone: No Panel InformationOrdered By: Carson Dior on 42-97-3237Ixvxlwswqlfcpa and review of laboratory resultsAbnormalUc HealthWatchDox Phone: [facility] Phone: pSA screeningOrdered By: Carson Dior on 08-18-2020 [employer] Phone: basic Metabolic Panelon 60-32-4794Ymlbn gap [Moles/Vol]8 mmol/LLow9 - 17 mmol/LMercy Health- [place], KYBun/Cre Sjbnm67Ucara [facility]- [place], KYCalcium [Mass/Vol]9.9 mg/dL8.6 - 10.4 mg/dLUc HealthCombineNet- [place], [place] Chloride [Moles/Vol]101 mmol/L98 - 107 mmol/LMercy Health- [place], KYCO2 [Moles/Vol] 30 mmol/L20 - 31 mmol/LMercy Health- [place], KYCreatinine [Mass/Vol]1 mg/dL0.7 - 1.2 mg/dLSumma Health Health- [place], KYGFR >60>60 mL/minMer Health- [place], [place] GFR Non->60>60 mL/minUc HealthJiongji App Health- [place], KYGlucose [Mass/Vol]88 mg/dL70 - 99 mg/dLPike Community Hospital, KYPotassium [Moles/Vol]4.4 mmol/L3.7 - 5.3 mmol/LMKettering Health [place], KYSodium [Moles/Vol]139 mmol/L135 - 144 mmol/LMKettering Health [place], KYUrea nitrogen [Mass/Vol]17 mg/dL8 - 23 mg/dLPike Community Hospital, [place] CBC Auto Differentialon 34-80-4118Oiiqijvjq (Bld) [#/Vol]0.06 10*3/uLPike [facility] Hospital, KYBasophils/100 WBC (Bld)1 %0 - 2 %[facility], KYDifferential TypeNOT REPORTEDPike Community Hospital, KYEosinophils (Bld) [#/Vol]0.52 10*3/uLHigh [facility], KYEosinophils/100 WBC (Bld)6 %High1 - 4 %[facility], [place] Erythrocyte distribution width (RBC) [Ratio]12.7 %11.8 - 14.4 %[facility], KYHematocrit (Bld) [Volume fraction]41.0 %40.7 - 50.3 %[facility], [place] Hemoglobin (Bld) [Mass/Vol]12.7 g/dLLow13 - 17 g/dLPike [facility] Hospital, FLImmature granulocytes (Bld) [#/Vol]0 %0[facility], KYImmature granulocytes (Bld) [#/Vol]10*3/[facility], FLInterpretation and review of laboratory resultsAbnormalPike [facility] Hospital, KYLymphocytes (Bld) [#/Vol]2.08 10*3/uLPike [facility] Hospital, KYLymphocytes/100 WBC (Bld)25 %24 - 43 %[facility], KYMCH (RBC) [Entitic mass]31.6 pg25.2 - 33.5 pgPike Community Hospital, KYMCHC (RBC) [Mass/Vol]31.0 g/dL28.4 - 34.8 g/dLPike [facility] Hospital, KYMCV (RBC) [Entitic vol] 102.0 fL82.6 - 102.9 fLSumma Health Health- [place], KYMonocytes (Bld) [#/Vol]0.55 10*3/uL [facility]- [place], CITLALYMonocytes/100 WBC (Bld)7 %3 - 12 %[facility]- [place], [place] Platelet mean volume (Bld) [Entitic vol]9.0 fL8.1 - 13.5 fLSumma Health Health- [place], [place] Platelets (Bld) [#/Vol]NOT REPORTEDMer[facility] Health [facility]- [place], KYPlatelets (Bld) [#/Vol] 230 10*3/uLMercy Health [facility]- [place], KYRBC (Bld) [#/Vol]4.02 10*6/uLLow4.21 - 5.77 m/uL [facility]- [place], CITLALYRBC morphology finding Nom (Bld)NOT REPORTEDMercy Health [facility]- [place], CITLALYSegmented neutrophils/100 WBC (Bld)61 %36 - 65 %[facility]- [place], CITLALYSegs Absolute5.16[facility]- [place], KYWBC (Bld) [#/Vol]8.4 10*3/uLMercy Health [facility]- [place], CITLALY WBC (Bld) [#/Vol]0.0 10*3/uL0.0 per 100 WBCMercy Health [facility] Hospital- [place], KYWBC MorphologyNOT REPORTEDSumma Health Health- [place], KYHepatic Function Panelon 71-77-8790Jsrythw [Mass/Vol]4.3 g/dL3.5 - 5.2 g/dLSumma Health Health- [place], KYAlbumin/Globulin [Mass ratio]1.3 {ratio}[facility]- [place], KYALP [Catalytic activity/Vol]119 U/L40 - 129 U/LMnorwalk memorial hospital Health- [place], KYALT [Catalytic activity/Vol]11 U/L5 - 41 U/LMnorwalk memorial hospital Health- [place], KYAST [Catalytic activity/Vol]11 U/L<40[facility]- [place], KYBilirubin Ql (U) 0.26 mg/dLLow0.3 - 1.2 mg/dLSumma [facility]- [place], KYBilirubin, IndirectCANNOT BE CALCULATED0 - 1 mg/dLSumma [facility]- [place]Bilirubin.direct [Mass/Vol]mg/dL<0.31 mg/dLSyracuse, KYGlobulin (S) [Mass/Vol]NOT REPORTED1.5 - 3.8 g/dLSyracuse, KYProtein [Mass/Vol]7.6 g/dL6.4 - 8.3 g/dLSyracuse, [place] Lamotrigine Levelon [id number] and review of laboratory results AbnormalSyracuse, KYLamotrigine Lvl15.9 ug/mLHigh3 - 15 ug/mLSyracuse, KYComment on above: Neither a therapeutic or toxic [...] of lamotrigine may be needed. Levetiracetam Levelon 05-31-7609Pimyflbmeijlv Lvl72 ug/mLSyracuse, [place] Comment on above: A reference range [...] and toxicity is not known. Metabolic Panelon 16-00-8768QQX/1.73 sq M predicted among non-blacks MDRD (S/P/Bld) [Vol rate/Area][place], [place]:Stage 1: Some kidney damage normal GFR Stage 2: Mild kidney damage GFR 60-89 Stage 3: Moderate kidney damage GFR 30-59 Stage 4: Severe kidney damage GFR 15-29 Stage 5: Severe kidney damage GFR <15 ESRD - chronic treatment by dialysis or transplant Average GFR for 60-69 years old: 85 mL/min/1.73sq m Chronic Kidney Disease: <60 mL/min/1.73sq m Kidney failure: <15 mL/min/1.73sq m eGFR calculated using average adult body mass. Additional eGFR calculator available at: http://www.[employer].com/multiple_crcl_2012.htm Otheron 59-17-3934Ecjyuayqeaaloy and review of laboratory resultsAbnormalMercy Health- [place], [place]Microscopic Urinalysison 00-50-7663Cocvrcvae, UANOT REPORTEDNone [facility] [place], KYBacteria, UA3+AbnormalNoneMercy Health- [place], KYCasts UANOT REPORTED/LPFMercy Health- [place], KYCrystals UANOT REPORTEDNone /HPFMercy Health- [place], KYEpithelial Cells UA0 TO 2[facility] [place], KYInterpretation and review of laboratory resultsAbnormalMercy Health- [place], KYMucus, UANOT REPORTEDNoneMer[facility]- [place], [place]Other Observations UANOT REPORTEDNOT REQ.[facility], KYRBC (U) [#/Vol]50 TO 100[facility] [place], KYRenal Epithelial, UrineNOT REPORTED0 /HPFMercy Health- [place], KYTrichomonas, UANOT REPORTEDNoneMer[facility]- [place], KYWBC, UAGREATER THAN 100[facility] [place], KYYeast, UANOT REPORTEDNone[facility]- [place], [place]-[facility] [place], KYUrinalysison 73-58-4715Qdpybfgwe UrineNegativeNEGATIVE [facility] [place], [place]Color, UAYELLOWYELLOWMercy Health- [place], KYGlucose, UrNegative NEGATIVEMercy Health- [place], KYInterpretation and review of laboratory results AbnormalMercy Health- [place], KYKetones Ql (U)NegativeNEGATIVEMercy Health- [place], [place] Leukocyte esterase Test strip Ql (U)LARGEAbnormalNEGATIVEMercy Health- [place], [place] Nitrite, UrineNegativeNEGATIVEMercy Health- [place], KYpH, UA6.0[facility] [place] Protein (U) [Mass/Vol]NegativeNEGATIVEMercy Health- [place], KYSpecific Fluker, UA 1.015[facility]- [place], KYTurbidity UACLOUDYAbnormalCLEARMercy Health- [place], [place] Urinalysis CommentsNOT REPORTEDMercy Health- [place], KYUrine Hgb3+AbnormalNEGATIVE [facility] [place], KYUrobilinogen, UrineNormalNormalBlanchard [facility] Metabolic Panlon 57-97-4672Fakqm gap [Moles/Vol]12 mmol/LNormal9-18[facility] Calcium [Mass/Vol]9.1 mg/dLNormal8.5-10.2[facility] HospitalChloride [Moles/Vol]106 mmol/XLaov12-438Bifg HospitalCO2 [Moles/Vol]21 mmol/QDqt98-43[facility] Creatinine [Mass/Vol]1.12 mg/dLNormal0.73-1.22[facility] HospitaleGFR- Amer.>60 NormalMount Vernon HospitalGFR/1.73 sq M predicted among non-blacks MDRD (S/P/Bld) [Vol rate/Area]mL/min/{1.73_m2}NormalAv HospitalComment on above:Result Comment: eGFR (Estimated GFR) Units of measure: [...] the eGFR may not accurately reflect actual GFR.Glucose [Mass/Vol]107 mg/dLHigh 74-99[facility] HospitalComment on above:Result Comment: The [place] Diabetes Association (ADA) provides guidance for cutoff [...] Standards of Medical Care in Diabetes 2016, [place] [employer] Association. Diabetes Care. 2016.39(Suppl 1).Potassium [Moles/Vol]4.5 mmol/L Normal3.7-5.1[facility] Peak Hospitalodium [Moles/Vol]139 mmol/JJdxnxu639-264Fqpb [facility] Urea nitrogen [Mass/Vol]7 mg/dLLow9-24[facility] HospitalCASE MANAGEMon [id number] MANAGEMHNO ID: [id number] Author: Milli (Rn) ARA Roberts Service: Care Management Author Type: Registered Nurse Type: Care Mgt Progress Note Filed: 11/29/2018 3:26 PM Note Text: CARE MANAGEMENT DISCHARGE NOTE SERVICE DATE: 11/29/2018 SERVICE TIME: 3:00pm LOS: 7 days Admission Date: 11/22/2018 DISCHARGE ARRANGEMENT (list agency and phone number) PENDING [facility] Provider: Laura Rowan . CAREGIVER ASSESSMENT: Caregiver is ready, willing and able to meet the patient's needs as recommended by the inter-professional team? Yes Patient's transition needs and plan for meeting these needs: Transportation is arranged with [facility] to take pt to [facility] on a stretcher via ambulance. adoption manager, Laura Rowan notified of discharge today and anticipated discharge time. Also informed of pt discharging with a will cath for urinary retention and follow up with urologist needed. Responder expressed understanding and had no concerns about meeting the pt's needs. Pt's sister/guardian, Susan Smith [phone], was called and Informed of discharge plan and mode of transportation. Guardian was agreeable with both. Does the patient have an acute stroke diagnosis, or has the patient had a stroke during this admission? No HANDOFF COMMUNICATION: Primary Care Physician: Dr Luz Marina Mooney TRANSPORTATION ARRANGEMENTS: Mode of Transportation: Ambulance Transportation Agency and Phone #: [facility] [phone]. Date of Trip: 11/29/18 Type of Service: BLS Non-emergency Is Patient Medicaid Pending: No Discussion of financial coverage occurred with Guardian . Heater Tender Location: [place] [address] Destination: [facility] Financial Care Management Responsibility: None Estimated Charge: n/a Approving Responder: n/a ADDITIONAL CONTACT RESOURCES: None Discharge Information Row Name Admission (Discharged) from 11/22/[address] Durable Medical Equipment Agency ? Phone# ? Equipment Needed ? Needs Prior to Discharge: None;Ready for Discharge SIGNATURE: Milli Roberts RN PATIENT NAME: Amol Taylor DATE: November 29, 2018 TIME: 3:05 PM PAGER/CONTACT #: [phone] HospitalCASE [facility]NO ID: [id number] Author: Kristyn (Rn) ARA Balbuena Service: Care [...] 29, 2018 TIME: 12:38 PM PAGER/CONTACT #: [phone] 11-29-2018 Absolute nRBC<0.01Normal<0.01[facility] HospitalErythrocyte distribution width (RBC) [Ratio]11.9 %Eoeuoz57.5-15.0[facility] HospitalHematocrit (Bld) [Volume fraction]36.2 %Low39.0-51.0[facility] HospitalHemoglobin (Bld) [Mass/Vol]11.7 g/dLLow13.0-17.0[facility] CenterH (RBC) [Entitic mass]32.1 kLNbylpm42.0-34.0[facility] CenterHC (RBC) [Mass/Vol]32.3 g/tNNzasqr75.5-36.0[facility] CenterV (RBC) [Entitic vol]99.2 fL Xsnetw12.0-100.0[facility]on HospitalPlatelet mean volume (Bld) [Entitic vol]9.1 fL Normal9.0-12.7[facility]on HospitalPlatelets (Bld) [#/Vol]250 10*3/kQNzwlju492-780Rqcv HospitalRBC (Bld) [#/Vol]3.65 10*6/uLLow4.20-6.00[facility] (Bld) [#/Vol] 8.62 10*3/uLNormal3.70-11.00[facility] Medical CenterNUTRITION 25-54-1330MTFLMUIJYSDO ID: [id number] Author: Mariela Israel (Georgina) GEORGINA Knott Service: Nutrition Therapy Author [...] Nutrition Recommendations: Diet: GI soft as tolerated [facility] 11/22 Yolanda Alford MD: Mr. 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 11/22-11/27: NPO Per epic 11/28: Clear liquid diet- 100% 11/29: 100% breakfast GI symptoms: unable to determine at this time Nutrition Abdominal Exam: and not assessed ANTHROPOMETRICS Admission Current Weight: 86.36 kg (190 lbs)- bed scale weight obtained by this real estate underwriter BMI: 31.72 kg/m2 Unable to determine [...] lb 4.8 oz) Dosing Weight: 86.36 kg [place] body weight: 61.81 kg Estimated kilocalorie needs: 8094-1527 kilocalories determined by 20-25 kcal/kg Estimated protein needs: 74-92 grams determined by 1.2-1.5 g/kg [place] weight Estimated fluid needs: 5571-0056 milliliters based on 1 mL per kcal [...] November 29, 2018 TIME: 10:00 AM PAGER: [phone],/ [phone] Reviewed and agree with plan of care. June GEORGINA Knott, LD Pager [phone] Medical Center East [id number] MANAGENO ID: [id number] Author: Nelida Goode (Sw) Service: Case Management Author Type: Staff Certified Nurse Midwife Type: Care Mgt Progress Note Filed: 11/28/2018 4:21 PM Note Text: CARE MANAGEMENT PROGRESS NOTE SERVICE DATE: 11/28/2018 SERVICE TIME: 4:14 PM LOS: 6 days Needs Prior to Discharge: To Be Determined Spoke with Dr. Saucedo, patient's diet is being advanced today, hopeful for dc tomorrow. He will need to be discharged with a will. Call placed to [facility] manage Laura Rowan [phone] and message left to make sure that the [facility] can manage the will. PT was also consulted. SIGNATURE: LAURA Faulkner PATIENT NAME: Amol Taylor DATE: November 28, 2018 TIME: 4:13 PM PAGER/CONTACT #: [phone] Medical Center of [facility] [phone] PROGHNO ID: [id number] Author: Citlali Escalante) Rocío Service: Gastroenterology Author Type: Nurse Practitioner Type: Consult Progress Note Filed: 11/28/2018 1:58 PM Note Text: CONSULT PROGRESS NOTE SERVICE DATE: 11/28/2018 SERVICE TIME: 1300 CONSULTING SERVICE: Gi Subjective INTERVAL HPI: pt still has contrast in his colon. PT is tolerating clears , denies any pain, n/v and having stools. Current Facility-Administered Medications Medication Dose Route Frequency - LORazepam [...] visit: Most recent labs and imaging results. Impression/Recommendations 1. SBO- Resolved with NG- Xr- contrast [...] D/W Dr. Rogel ? Citlali Alford APRN.CNP [facility] Gastroenterology [facility] Consult? SIGNATURE: Citlali Alford APRN.CNP PATIENT NAME: Amol Taylor DATE: November 28, 2018 TIME: 1:46 PM PAGER: [phone] Center Enterprise ID: [id number] Author: Elsa Kaur Service: General Surgery Author Type: Physician Sound Art Instructor Type: Consult Progress Note Filed: 11/28/2018 9:38 AM Note Text: SURGICAL SERVICES CONSULT PROGRESS NOTE SERVICE DATE: 11/28/2018 SERVICE TIME: 914 CONSULTING SERVICE: General surgery Subjective INTERVAL HISTORY OF PRESENT ILLNESS: Patient denies any pain. +flauts and BM. Current Facility-Administered Medications Medication Dose Route Frequency - LORazepam [...] 99 93 114* CA 8.8 9.1 8.8 Impression/Recommendations Patient Active Hospital Problem List: Small bowel [...] 28, 2018 TIME: 9:33 AM PAGER/CONTACT #: [phone] Baptist [facility] Center 11-28-2018 NURSING [facility] ID: [id number] Author: Belle Monteiro (Rn) ARA Leon Service: Nursing Author Type: Registered Nurse Type: Nursing Progress Note Filed: 11/28/2018 4:17 PM Note Text: Nursing Progress Note Patient Name: Amol Taylor [facility] Daily Note:Awake, alert, pleasant, cooperative, impulsive. Developmental disability. Denies any abdominal pain or nausea. For another KUB today to monitor level of barium retention. Abdomen remains distended. Has had several stools since laxatives initiated yesterday, but stool output has slowed down as this shift progressed. GI vs. Will advance diet. 1600 Attending vs. This note was completed by: Belle Leon RNMarshall Medical Center North [id number] ID: [id number] Author: Debby Saucedo Service: Hospital Medicine Author [...] 10/20/2013 - Present Medication and Non-Pharmacologic VTE Prophylaxis/Anticoagulants Anticoagulant AND Antiplatelet Medications (From admission, onward) Start Dose Route Frequency Ordered Stop 11/22/18 1400 heparin 5,000 Units injection (Medical Risk Categories) 5,000 Units SUBCUTANEOUS EVERY 12 HOURS 11/22/18 1356 -- 11/22/18 1400 vte non-pharmacologic prophylaxis - none indicated (ne,oh) 11/22/18 1400 activity - mobilize patient (ne,il) VTE Prophylaxis: VTE prophylaxis appropriate Plan of care discussed with: Provider, RN, Patient SIGNATURE: Debby Saucedo MD PATIENT NAME: Amol Taylor DATE: November 28, 2018 TIME: 5:23 PM PAGER/CONTACT #: [phone] of Utah HospitalESSHAVERHILL [facility] ID: [id number] Author: Maribel BeltreRtADELA Dunn Service: Radiology Author Type: Clinical [employer] Roughneck Type: Progress Notes Filed: 11/28/2018 12:51 PM Note Text: Radiology Service Progress Note PATIENT NAME: Amol aTylor DATE OF SERVICE: November 28, 2018 TIME: 12:50 PM PATIENT IDENTITY VERIFICATION COMPLETED USING TWO (2) METHODS: Name and Date of confirmed by patient verbally. PATIENT GENDER DATA: Male PATIENT RELEVANT IMPLANT DATA REVIEWED: Not Applicable RADIOLOGY DEPARTMENT: General X-ray: Exam(s) Completed: Abdomen X-Ray Abdomen PERIPHERAL IV DATA: Not applicable SIGNED BY: Shruthi Oviedo RT November 28, 2018 12:50 [facility] ID: [id number] Author: Debby Saucedo Service: Hospital Medicine Author Type: Physician Type: Progress Notes Filed: 11/27/2018 11:23 PM Note Text: SERVICE DATE: 11/27/2018 SERVICE TIME: 11:22 PM HOSPITAL MEDICINE PROGRESS NOTE NIGHT AND WEEKEND COVERAGE: Days: [phone], please page me for patient issues. Nights: [phone], please page CC Hospitalist Night coverage pager [phone] HPI SUBJECTIVE Interval Events: no complaint OBJECTIVE BP 106/61 Pulse 62 Temp (Src) 98.4 (Oral) Resp 18 SpO2 98% O2 Therapy: Room Air Physical Exam Performed: GENERAL: no distress HEART: rrr LUNGS: cta b ABDOMEN: soft, nt EXTREMITY: no edema Lines, Drains, and Airways Line Peripheral 11/27/18 0815 Assessment Short Left Forearm 22 Gauge less than 1 day Drain Indwelling Urinary Catheter 11/23/18 180 Assessment Coude 16 Fr 4 days Reviewed [...] 10/20/2013 - Present Medication and Non-Pharmacologic VTE Prophylaxis/Anticoagulants Anticoagulant AND Antiplatelet Medications (From admission, onward) Start Dose Route Frequency Ordered Stop 11/22/18 1400 heparin 5,000 Units injection (Medical Risk Categories) 5,000 Units SUBCUTANEOUS EVERY 12 HOURS 11/22/18 1356 -- 11/22/18 1400 vte non-pharmacologic prophylaxis - none indicated (fl,oh) 11/22/18 1400 activity - mobilize patient (fl,oh) VTE Prophylaxis: VTE prophylaxis appropriate Plan of care discussed with: Provider, RN, Patient SIGNATURE: Debby Saucedo MD PATIENT NAME: Amol Taylor DATE: November 27, 2018 TIME: 11:22 PM PAGER/CONTACT #: [phone] HospitalXR ABDOMEN 1V SUPINEon 74-85-3191QO ABDOMEN 1V SUPINE* * *Final Report* * * DATE OF [...] colon. Persistent gaseous distention of bowel loops Terrapin Fisher: [facility] Transcribe Date/Time: Nov 28 2018 1:15P Dictated by : ANABELA DE SANTIAGO MD This examination was interpreted and the report reviewed and electronically signed by: ANABELA DE SANTIAGO MD on Nov 28 2018 1:16PM EST [id number] HospitalBasic Metabolic Panlon 09-58-1199Sjzoo gap [Moles/Vol]12 mmol/LNormal9-18[facility] HospitalCalcium [Mass/Vol]9.1 mg/dLNormal 8.5-10.2[facility]on HospitalChloride [Moles/Vol]106 mmol/BEsqy75-829Xzki HospitalCO2 [Moles/Vol]22 mmol/SHhmsef40-71Hanp HospitalCreatinine [Mass/Vol]0.94 mg/dL Normal0.73-1.22Avon HospitaleGFR- Amer.>60NormalAvon HospitalGFR/1.73 sq M predicted among non-blacks MDRD (S/P/Bld) [Vol rate/Area]mL/min/{1.73_m2} NormalAvon HospitalComment on above:Result Comment: eGFR (Estimated GFR) Units of measure: [...] the eGFR may not accurately reflect actual GFR.Glucose [Mass/Vol]93 mg/dLNormal 74-99Avon HospitalComment on above:Result Comment: The [place] Diabetes Association (ADA) provides guidance for cutoff [...] Standards of Medical Care in Diabetes 2016, [place] Diabetes Association. Diabetes Care. 2016.39(Suppl 1).Potassium [Moles/Vol]4.2 mmol/L Normal3.7-5.1Avon HospitalSodium [Moles/Vol]140 mmol/SDjudzj723-647[facility] Urea nitrogen [Mass/Vol]6 mg/dLLow9-24[facility]on HospitalCASE MANAGEMon [id number] MANAGEMHNO ID: [id number] Author: Kristyn (Ara) ARA Balbuena Service: Care [...] a bowel prep to remove prior contrast. Environmental Technical Officer will continue to follow. Will notify pt's [facility] closer to time of discharge. SIGNATURE: Kristyn Balbuena RN PATIENT NAME: Amol Taylor DATE: November 27, 2018 TIME: 3:45 PM PAGER/CONTACT #: [phone] Valley Medical Center 11-27-2018 Absolute nRBC<0.01Normal<0.01Avon HospitalErythrocyte distribution width (RBC) [Ratio]11.9 %Juhifb16.5-15.0Avon HospitalHematocrit (Bld) [Volume fraction]33.8 %Low39.0-51.0Avon HospitalHemoglobin (Bld) [Mass/Vol]10.9 g/dLLow13.0-17.0[facility]on Va HospitalMCH (RBC) [Entitic mass]31.9 dEWgpnkz29.0-34.0AvDeaconess Cross Pointe CenterMCHC (RBC) [Mass/Vol]32.2 g/hXLhefzh20.5-36.0Avon HospitalMCV (RBC) [Entitic vol]98.8 fL Iddrlv07.0-100.0Av HospitalPlatelet mean volume (Bld) [Entitic vol]9.6 fL Normal9.0-12.7Avo HospitalPlatelets (Bld) [#/Vol]200 10*3/uLShjnsj527-673Kafq HospitalRBC (Bld) [#/Vol]3.42 10*6/uLLow4.20-6.00Avon HospitalWBC (Bld) [#/Vol] 7.38 10*3/uLNormal3.70-11.00Avon HospitalCONSULT PROGon [id number] PROG HNO ID: [id number] Author: Citlali Escalante) Zacharybaseedmund Service: Gastroenterology Author Type: Nurse Practitioner Type: Consult Progress Note Filed: 11/27/2018 2:21 PM Note Text: CONSULT PROGRESS NOTE SERVICE DATE: 11/27/2018 SERVICE TIME: 1200 CONSULTING SERVICE: GI Subjective INTERVAL HPI: No acute events over night. Pt tolerating clears. Current Facility-Administered Medications Medication Dose Route Frequency - LORazepam [...] visit: Most recent labs and imaging results. Impression/Recommendations 1. SBO- Resolved with NG- Xr- contrast [...] D/W Dr. Rogel ? Citlali Alford APRN.CNP [facility] Gastroenterology [facility] Consult SIGNATURE: Citlali Alford APRN.CNP PATIENT NAME: Amol Taylor DATE: November 27, 2018 TIME: 2:18 PM PAGER: [phone] Baptist Medical Center 11-27-2018 NURSING [facility] ID: [id number] Author: Belle BeltreRn) ARA Leon Service: Nursing Author Type: Registered Nurse Type: Nursing Progress Note Filed: 11/27/2018 11:41 AM Note Text: Nursing Progress Note Patient Name: Amol Taylor Patient Location: / Daily Note:0815 Dozing, easily awakened. Denies any pain. Somewhat irritable. Relates wants to sleep. Previous shift related pt to be NPO. [facility], he was ordered a clear liquid diet [...] This note was completed by: Belle Leon RNInfirmary LTAC [facility] ID: [id number] Author: Vangie BeltreRn) ARA Zuniga Service: Nursing Author Type: Registered Nurse Type: Nursing Progress Note Filed: 11/27/2018 6:00 AM Note Text: Nursing Progress Note Patient Name: Amol Taylor Patient Location: / Daily Note: Left arm IV infiltrated. Arm swollen . IV removed. Ice bag applied and arm elevated. This note was completed by: Venkat PittsRobert Wood Johnson University Hospital Somersetmarek Va HospitalXR ABD 2V SUPINE W UPR/DECUB/CTLon 65-91-2843KH ABD 2V SUPINE W UPR/DECUB/CTL* * *Final Report* * * DATE OF [...] earlier. The bowel gas pattern is nonobstructive. Terrapin Fisher: [facility] Transcribe Date/Time: Nov 27 2018 6:45P Dictated by : EMILIA ANGEL MD This examination was interpreted and the report reviewed and electronically signed by: EMILIA ANGEL MD on Nov 27 2018 6:46PM EST [id number] HospitalBasic Metabolic Panlon 97-04-3495Igraf gap [Moles/Vol]11 mmol/LNormal9-18Avon HospitalCalcium [Mass/Vol]8.8 mg/dLNormal 8.5-10.2Avon HospitalChloride [Moles/Vol]104 mmol/LGsryhi39-217Veqm HospitalCO2 [Moles/Vol]24 mmol/YLqxtpx01-50Nyoz HospitalCreatinine [Mass/Vol]0.94 mg/dL Normal0.73-1.22Avon HospitaleGFR- Amer.>60NormalAvon HospitalGFR/1.73 sq M predicted among non-blacks MDRD (S/P/Bld) [Vol rate/Area]mL/min/{1.73_m2} NormalAvon HospitalComment on above:Result Comment: eGFR (Estimated GFR) Units of measure: [...] the eGFR may not accurately reflect actual GFR.Glucose [Mass/Vol]114 mg/dLHigh 74-99Avon HospitalComment on above:Result Comment: The [place] Diabetes Association (ADA) provides guidance for cutoff [...] Standards of Medical Care in Diabetes 2016, [place] Diabetes Association. Diabetes Care. 2016.39(Suppl 1).Potassium [Moles/Vol]4.4 mmol/L Normal3.7-5.1Avon HospitalSodium [Moles/Vol]139 mmol/GUvmzpu504-759Oyoj [facility] Urea nitrogen [Mass/Vol]7 mg/dLLow9-24Avon HospitalC-Reactive Proteinon 40-18-5825MJB [Mass/Vol]13.7 mg/dLHigh<0.9Avon HospitalComment on above: Performed By: #### WSR ####[facility] [place], [place] [phone] 68-94-7446Nolgsngv nRBC<0.01Normal <0.01Avon HospitalErythrocyte distribution width (RBC) [Ratio]11.9 %Normal 11.5-15.0Avon HospitalHematocrit (Bld) [Volume fraction]32.7 %Low39.0-51.0Avon HospitalHemoglobin (Bld) [Mass/Vol]10.6 g/dLLow13.0-17.0Avon [facility] CenterH (RBC) [Entitic mass]32.1 iTJgcyiy73.0-34.0[facility] Medical CenterHC (RBC) [Mass/Vol]32.4 g/dL Zabcgq56.5-36.0AvSt. Elizabeth Ann Seton Hospital of CarmelV (RBC) [Entitic vol]99.1 iDIigzml48.0-100.0Avon HospitalPlatelet mean volume (Bld) [Entitic vol]9.0 fLNormal9.0-12.7Avon HospitalPlatelets (Bld) [#/Vol]173 10*3/wYNncdxz845-744Xqqx HospitalRBC (Bld) [#/Vol]3.30 10*6/uLLow4.20-6.00Avon HospitalWBC (Bld) [#/Vol]9.38 10*3/uLNormal 3.70-11.00[facility] Medical CenterCONSULTon [id number] ID: [id number] Author: Citlali Alford Service: Gastroenterology Author Type: [...] capsule Rfl: 3 Unknown at Unknown time HYDROcodone-acetaminophen (NORCO) 5-325 mg per tablet 1 tablet [...] Disp: Rfl: 0 08/07/2016 at 0600 Current Facility-Administered Medications Medication Dose Route Frequency - LORazepam [...] visit: Most recent labs and imaging results. Impression/Recommendations 1. SBO- Resolved with NG- Xr- contrast enters the colon. 2. Jejunum inflammation- Small bowel series- Nonspecific dilatation of much of the jejunal loops suggestive of inflammation with mild fold thickening. Plan CT enterography to assess inflammation Inflammatory markers Continue to monitor D/W Dr. Pebbles Alford, RAISA.OTONIEL [facility] Gastroenterology [facility] Consult SIGNATURE: Citlali Alford APRN.OTONIEL PATIENT NAME: Amol Taylor DATE: November 26, 2018 TIME: 2:00 PM PAGER: [phone] Medical Center North 11-26-2018 PROGRESSHNO ID: [id number] Author: Raquel Buckley (Pa) Service: General Surgery Author Type: Physician Sound Art Instructor Type: Progress Notes Filed: 11/26/2018 11:01 AM Note Text: Attestation signed by Kandice Artis at 11/26/2018 11:04 AM Attending Note: Gee findings confirmed. Patient examined. Discussed with the physician ortho assistant and the patient. Plan as outlined. [...] formed BM yesterday, denied vomiting overnight. Current Facility-Administered Medications Medication Dose Route Frequency - LORazepam [...] 26, 2018 TIME: 10:56 AM PAGER/CONTACT #: [phone] [phone] Valley Medical Center West Valley CampusESSHAVERHILL [facility] ID: [id number] Author: Luís Weeks (Rt) Zahira Lim Service: Radiology Author Type: [employer] Roughneck Type: Progress Notes Filed: 11/26/2018 10:07 AM [...] BY: RT UYEN November 26, 2018 10:07 [facility] ID: [id number] Author: Debby Saucedo Service: Hospital Medicine Author Type: Physician Type: Progress Notes Filed: 11/26/2018 9:32 AM Note Text: SERVICE DATE: 11/26/2018 SERVICE TIME: 9:32 AM HOSPITAL MEDICINE PROGRESS NOTE NIGHT AND WEEKEND COVERAGE: Days: [phone], please page me for patient issues. Nights: [phone], please page CC Hospitalist Night coverage pager [phone] HPI SUBJECTIVE Interval Events: Improved 600 cc [...] 10/20/2013 - Present Medication and Non-Pharmacologic VTE Prophylaxis/Anticoagulants Anticoagulant AND Antiplatelet Medications (From admission, onward) Start Dose Route Frequency Ordered Stop 11/22/18 1400 heparin 5,000 Units injection (Medical Risk Categories) 5,000 Units SUBCUTANEOUS EVERY 12 HOURS 11/22/18 1356 -- 11/22/18 1400 vte non-pharmacologic prophylaxis - none indicated (fl,oh) 11/22/18 1400 activity - mobilize patient (ne,oh) VTE Prophylaxis: VTE prophylaxis appropriate Plan of care discussed with: Provider, RN, Patient SIGNATURE: Debby Saucedo MD PATIENT NAME: Amol Taylor DATE: November 26, 2018 TIME: 9:32 AM PAGER/CONTACT #: [phone] HospitalSed Rate Westergrenon 43-26-3583Ova Rate Lvobymyalx45 mm/hrHigh0-15Avon HospitalComment on above: Performed By: #### WSR ####[facility] [address] [place], [place] [phone] CHEST 1V FRONTAL PORTon [id number] CHEST 1V FRONTAL PORT* * *Final Report* * * DATE OF [...] . IMPRESSION: Left lower lobe subsegmental atelectasis Terrapin Fisher: PSCB Transcribe Date/Time: Nov 26 2018 10:51A Dictated by : JORDYN MONCADA MD This examination was interpreted and the report reviewed and electronically signed by: JORDYN MONCADA MD on Nov 26 2018 10:53AM EST [id number] HospitalBasic Metabolic Panlon 00-70-6235Qdtqg gap [Moles/Vol]11 mmol/LNormal9-18Avon HospitalCalcium [Mass/Vol]8.5 mg/dLNormal 8.5-10.2Avon HospitalChloride [Moles/Vol]104 mmol/OFqnxbh23-227Zusk HospitalCO2 [Moles/Vol]25 mmol/JNqvlgz27-99Idjw HospitalCreatinine [Mass/Vol]0.97 mg/dL Normal0.73-1.22Avon HospitaleGFR- Amer.>60NormalAvon HospitalGFR/1.73 sq M predicted among non-blacks MDRD (S/P/Bld) [Vol rate/Area]mL/min/{1.73_m2} NormalAvon HospitalComment on above:Result Comment: eGFR (Estimated GFR) Units of measure: [...] the eGFR may not accurately reflect actual GFR.Glucose [Mass/Vol]108 mg/dLHigh 74-99Avon HospitalComment on above:Result Comment: The [place] Diabetes Association (ADA) provides guidance for cutoff [...] Standards of Medical Care in Diabetes 2016, [place] [employer]. Diabetes Care. 2016.39(Suppl 1).Potassium [Moles/Vol]4.0 mmol/L Normal3.7-5.1Avon HospitalSodium [Moles/Vol]140 mmol/GVxkmrm761-500[facility] Urea nitrogen [Mass/Vol]9 mg/dLNormal9-24Avon HospitalCBCon 95-12-0775Fqtyzawh nRBC<0.01Normal<0.01Avon HospitalErythrocyte distribution width (RBC) [Ratio] 12.0 %Xpbgll06.5-15.0Avon HospitalHematocrit (Bld) [Volume fraction]32.1 %Low 39.0-51.0Avon HospitalHemoglobin (Bld) [Mass/Vol]10.2 g/dLLow13.0-17.0[facility] (RBC) [Entitic mass]32.0 jMZqrnpx86.0-34.0[facility]on [facility] CenterHC (RBC) [Mass/Vol]31.8 g/fARqaiun07.5-36.0Avon HospitalMCV (RBC) [Entitic vol]100.6 fL High80.0-100.0Avon HospitalPlatelet mean volume (Bld) [Entitic vol]9.4 fLNormal 9.0-12.7Avon HospitalPlatelets (Bld) [#/Vol]156 10*3/bXPxotqg835-765Boaf HospitalRBC (Bld) [#/Vol]3.19 10*6/uLLow4.20-6.00Avon HospitalWBC (Bld) [#/Vol] 8.65 10*3/uLNormal3.70-11.00Avon HospitalCONSULT PROGon [id number] PRO HNO ID: [id number] Author: Elsa Kaur Service: General Surgery Author Type: Physician Sound Art Instructor Type: Consult Progress Note Filed: 11/25/2018 9:35 AM Note Text: Attestation signed by Zoila Slater at 11/25/2018 11:22 AM [facility] STAFF PHYSICIAN NOTE OF PERSONAL INVOLVEMENT IN CARE Feels well with no c/o pain or nausea BM reported Abd soft, reducible hernia AXR with cont dilated loops Check SBFT I have reviewed the documentation above obtained and documented by the Physician Sound Art Instructor and have reviewed and updated the problem [...] +BM this AM per nursing documentation. Current Facility-Administered Medications Medication Dose Route Frequency - LORazepam [...] Anastomotic sutures noted within the left hemiabdomen. Impression/Recommendations Patient Active Hospital Problem List: Small bowel obstruction due to adhesions (HCC) (04/26/2014) Intellectual disability (04/26/2014) Seizure (HCC) (11/22/2018) Urinary retention (11/24/2018) -continue NGT and NPO -plan discussed with hospital medicine, RN and attending surgeon SIGNATURE: Elsa Kaur PA-C PATIENT NAME: Amol Taylor DATE: November 25, 2018 TIME: 8:54 AM PAGER/CONTACT #: [phone] [facility] 11-25-2018 PROGRESSHNO ID: [id number] Author: Debby Saucedo Service: Hospital Medicine Author Type: Physician Type: Progress Notes Filed: 11/25/2018 9:19 PM Note Text: SERVICE DATE: 11/25/2018 SERVICE TIME: 9:19 PM HOSPITAL MEDICINE PROGRESS NOTE NIGHT AND WEEKEND COVERAGE: Days: [phone], please page me for patient issues. Nights: [phone], please page CC Hospitalist Night coverage pager [phone] HPI SUBJECTIVE Interval Events: No Change no [...] Current Assessment AND Plan Assessment: Transferred from [facility] to [place] per family request CT abdomen/pelvis (11/22/18, OSH): mid distal small bowel obstruciton likely due to adhesion at site of prior small bowel-small bowel anastomosis NGT placed at outside hospital PLAN: Serial KUBs NPO except meds IVF, monitor for signs of fluid overload NGT to [facility] Surgery consulted Urinary retention 11/24/2018 - Present Current Assessment AND Plan Assessment: Per sister, has a habit of holding urine, and would urinate a lot in the morning PLAN: Keep Will catheter for now Seizure (HCC) 11/22/2018 - Present Current Assessment AND Plan Assessment: Chronic, stable PLAN: Continue home meds Fall/seizure precautions Intellectual disability 04/26/2014 - Present Medication and Non-Pharmacologic VTE Prophylaxis/Anticoagulants Anticoagulant AND Antiplatelet Medications (From admission, onward) Start Dose Route Frequency Ordered Stop 11/22/18 1400 heparin 5,000 Units injection (Medical Risk Categories) 5,000 Units SUBCUTANEOUS EVERY 12 HOURS 11/22/18 1356 -- 11/22/18 1400 vte non-pharmacologic prophylaxis - none indicated (fl,oh) 11/22/18 1400 activity - [place]ize patient ([place]) VTE Prophylaxis: VTE prophylaxis appropriate Plan of care discussed with: Provider, RN, Patient SIGNATURE: Debby Saucedo MD PATIENT NAME: Amol Taylor DATE: November 25, 2018 TIME: 9:19 PM PAGER/CONTACT #: [phone]. [facility] ID: [id number] Author: Ronan Fowler (Tech) Service: Radiology Author Type: Oil Rig Roughneck Type: Progress Notes Filed: 11/25/2018 8:13 AM [...] BY: Maday LORA November 25, 2018 8:13 [facility] SUPINE W UPR/DECUB/CTLon [id number] ABD 2V SUPINE W UPR/DECUB/CTL* * *Final Report* * * DATE OF [...] Anastomotic sutures noted within the left hemiabdomen. Terrapin Fisher: FERNANDA Transcribe Date/Time: Nov 25 2018 8:35A Dictated by : ANASTACIO PERKINS MD This examination was interpreted and the report reviewed and electronically signed by: ANASTACIO PERKINS MD on Nov 25 2018 8:37AM EST [id number] HospitalXR SMALL BOWEL SERIESon 49-07-2315SW SMALL BOWEL SERIES* * *Final Report* * * DATE OF EXAM: Nov 25 2018 3:52PM X [id number] - XR SMALL BOWEL SERIES / [...] Contrast enters the colon within one hour Terrapin Fisher: [facility] Transcribe Date/Time: Nov 25 2018 4:58P Dictated by : ANABELA DE SANTIAGO MD This examination was interpreted and the report reviewed and electronically signed by: ANABELA DE SANTIAGO MD on Nov 25 2018 5:23PM EST [id number] HospitalBasic Metabolic Panlon 51-46-7583Vzrqc gap [Moles/Vol]13 mmol/LNormal9-18Avon HospitalCalcium [Mass/Vol]8.3 mg/dLLow 8.5-10.2Avon HospitalChloride [Moles/Vol]103 mmol/YLlemuc67-353Dxys HospitalCO2 [Moles/Vol]24 mmol/PZtxvxb63-85Jxws HospitalCreatinine [Mass/Vol]0.98 mg/dL Normal0.73-1.22Avon HospitaleGFR- Amer.>60NormalAvon HospitalGFR/1.73 sq M predicted among non-blacks MDRD (S/P/Bld) [Vol rate/Area]mL/min/{1.73_m2} NormalAvon HospitalComment on above:Result Comment: eGFR (Estimated GFR) Units of measure: [...] the eGFR may not accurately reflect actual GFR.Glucose [Mass/Vol]109 mg/dLHigh 74-99Avon HospitalComment on above:Result Comment: The [place] Diabetes Association (ADA) provides guidance for cutoff [...] Standards of Medical Care in Diabetes 2016, [place] Diabetes Association. Diabetes Care. 2016.39(Suppl 1).Potassium [Moles/Vol]3.8 mmol/L Normal3.7-5.1Avon HospitalSodium [Moles/Vol]140 mmol/PNwxnvv586-046Gyqz Hospital Urea nitrogen [Mass/Vol]20 mg/dLNormal9-24Avon HospitalCBCon 27-03-0332Gqkltjfg nRBC<0.01Normal<0.01Avon HospitalErythrocyte distribution width (RBC) [Ratio] 12.2 %Dpjgys72.5-15.0Avon HospitalHematocrit (Bld) [Volume fraction]33.2 %Low 39.0-51.0Avon HospitalHemoglobin (Bld) [Mass/Vol]10.6 g/dLLow13.0-17.0AvSt. Elizabeth Ann Seton Hospital of CarmelH (RBC) [Entitic mass]32.4 pWOupass40.0-34.0AvSt. Elizabeth Ann Seton Hospital of CarmelHC (RBC) [Mass/Vol]31.9 g/uACztvef44.5-36.0AvDeaconess Cross Pointe CenterMCV (RBC) [Entitic vol]101.5 fL High80.0-100.0Av HospitalPlatelet mean volume (Bld) [Entitic vol]9.1 fLNormal 9.0-12.7Avon HospitalPlatelets (Bld) [#/Vol]163 10*3/yBLtwida447-468Rfwu HospitalRBC (Bld) [#/Vol]3.27 10*6/uLLow4.20-6.00Avon HospitalWBC (Bld) [#/Vol] 10.79 10*3/uLNormal3.70-11.00Av HospitalCONSULT PROGon [id number] PROG HNO ID: [id number] Author: Wellington Morris III Service: General Surgery [...] capsule Rfl: 3 Unknown at Unknown time HYDROcodone-acetaminophen (NORCO) 5-325 mg per tablet 1 tablet [...] the stomach. Impression: Unchanged small bowel dilatation Terrapin Fisher: FERNANDA ? Transcribe Date/Time: Nov 23 2018 ?2:23P Dictated by : LIBRA GARCIA MD Assessment/Plan Small bowel obstruction due to adhesions and reducible incisional hernia ? Continue NGT Continue NPO NGT needs advanced 4-5 cm ? Repeat AXR this AM Medication and Non-Pharmacologic VTE Prophylaxis/Anticoagulants Anticoagulant AND Antiplatelet Medications (From admission, onward) Start Dose Route Frequency Ordered Stop 11/22/18 1400 heparin 5,000 Units injection (Medical Risk Categories) 5,000 Units SUBCUTANEOUS EVERY 12 HOURS 11/22/18 1356 -- 11/22/18 1400 vte non-pharmacologic prophylaxis - none indicated (ne,il) 11/22/18 1400 activity - mobilize patient ([place]) VTE Prophylaxis: VTE prophylaxis appropriate SIGNATURE: Wellington Morris III, MD PATIENT NAME: Amol Taylor DATE: November 24, 2018 TIME: 7:19 AM PAGER/CONTACT #:[facility] 11-24-2018 NURSING [facility] ID: [id number] Author: Ranjana (Ara) ARA Guzmán Service: Nursing Author Type: Registered Nurse Type: Nursing Progress Note Filed: 11/24/2018 9:08 PM Note Text: Nursing Progress Note Patient Name: Amol Taylor Patient [place] [address] [address] Daily Note: Following page sent to cross coverage: Re: Room 304, Amol Taylor. Pt has a vagus nerve stimulator. Can we have an order for continuous pulse ox to keep an eye on his HR in the event that he has a seizure? Thank you, Shae Guzmán, RN [phone] Orders received This note was completed by: Ranjana Guzmán RNUnited States Marine Hospital HNO ID: [id number] Author: Bel BeltreRn) ARA Ye Service: Nursing Author Type: Registered [...] This note was completed by: Bel Ye RNMarshall Medical [facility] North 24-25-9635PMYDJLRXTCU ID: [id number] Author: Yolanda Gonzalez (Rt) Service: Radiology Author Type: Oil Rig Roughneck Type: Progress Notes Filed: 11/24/2018 3:01 PM [...] BY: RT Selvin November 24, 2018 3:01 [facility] ID: [id number] Author: Toshia Vaughn (Rt) Service: Radiology Author Type: Oil Rig Roughneck Type: Progress Notes Filed: 11/24/2018 10:14 AM [...] IV DATA: Not applicable SIGNED BY: Yolanda Gonzalez RT (R) November 24, 2018 10:14 [facility] ID: [id number] Author: Debby Saucedo Service: Hospital Medicine Author Type: Physician Type: Progress Notes Filed: 11/24/2018 9:38 AM Note Text: SERVICE DATE: 11/24/2018 SERVICE TIME: 9:37 AM HOSPITAL MEDICINE PROGRESS NOTE NIGHT AND WEEKEND COVERAGE: Days: [phone], please page me for patient issues. Nights: [phone], please page CC Hospitalist Night coverage pager [phone] HPI SUBJECTIVE Interval Events: denies pain no [...] (Principal) Small bowel obstruction due to adhesions ([facility]) 04/26/2014 - Present Current Assessment AND Plan Assessment: Transferred from [facility] to [place] per family request CT abdomen/pelvis (11/22/18, OSH): mid distal small bowel obstruciton likely due to adhesion at site of prior small bowel-small bowel anastomosis NGT placed at outside hospital PLAN: Serial KUBs NPO except meds IVF, monitor for signs of fluid overload NGT to [facility] Surgery consulted Urinary retention 11/24/2018 - Present Current Assessment AND Plan Assessment: Per sister, has a habit of holding urine, and would urinate a lot in the morning PLAN: Keep Will catheter for now Seizure (HCC) 11/22/2018 - Present Current Assessment AND Plan Assessment: Chronic, stable PLAN: Continue home meds Fall/seizure precautions Intellectual disability 04/26/2014 - Present Medication and Non-Pharmacologic VTE Prophylaxis/Anticoagulants Anticoagulant AND Antiplatelet Medications (From admission, onward) Start Dose Route Frequency Ordered Stop 11/22/18 1400 heparin 5,000 Units injection (Medical Risk Categories) 5,000 Units SUBCUTANEOUS EVERY 12 HOURS 11/22/18 1356 -- 11/22/18 1400 vte non-pharmacologic prophylaxis - none indicated (ne,oh) 11/22/18 1400 activity - mobilize patient (ne,il) VTE Prophylaxis: VTE prophylaxis appropriate Plan of care discussed with: Provider, RN, Patient SIGNATURE: Debby Saucedo MD PATIENT NAME: Amol Taylor DATE: November 24, 2018 TIME: 9:37 AM PAGER/CONTACT #: [phone] Hospital and Health ServicesXR ABDOMEN 1V SPECIFYon [id number] ABDOMEN 1V SPECIFY* * *Final Report* * * DATE OF [...] placement, tube could be advanced several centimeters. Terrapin Fisher: FERNANDA Transcribe Date/Time: Nov 24 2018 5:09P Dictated by : SAVANA URIARTE MD This examination was interpreted and the report reviewed and electronically signed by: SAVANA URIARTE MD on Nov 24 2018 5:13PM EST [id number] Community HospitalXR ABDOMEN 1V SUPINEon [id number] ABDOMEN 1V SUPINE* * *Final Report* * * DATE OF [...] either early small bowel obstruction or ileus. Terrapin Fisher: [facility] Transcribe Date/Time: Nov 24 2018 11:44A Dictated by : DONNA RIVERA MD This examination was interpreted and the report reviewed and electronically signed by: DONNA RIVERA MD on Nov 24 2018 11:45AM EST [id number] County Meadowview Hospital HospitalBasic Metabolic Panlon 56-35-5180Eeutx gap [Moles/Vol]12 mmol/LNormal9-18Avon HospitalCalcium [Mass/Vol]8.8 mg/dLNormal 8.5-10.2Avon HospitalChloride [Moles/Vol]105 mmol/TIenalt11-691Rwab HospitalCO2 [Moles/Vol]27 mmol/FHzxhjj26-73Sshj HospitalCreatinine [Mass/Vol]1.18 mg/dL Normal0.73-1.22Avon HospitaleGFR- Amer.>60NormalAvon HospitalGFR/1.73 sq M predicted among non-blacks MDRD (S/P/Bld) [Vol rate/Area]mL/min/{1.73_m2} NormalAvon HospitalComment on above:Result Comment: eGFR (Estimated GFR) Units of measure: [...] the eGFR may not accurately reflect actual GFR.Glucose [Mass/Vol]93 mg/dLNormal 74-99Avon HospitalComment on above:Result Comment: The [place] Diabetes Association (ADA) provides guidance for cutoff [...] Standards of Medical Care in Diabetes 2016, [place] Diabetes Association. Diabetes Care. 2016.39(Suppl 1).Potassium [Moles/Vol]4.0 mmol/L Normal3.7-5.1Avon HospitalSodium [Moles/Vol]144 mmol/NCvixcl877-924Cbpq Hospital Urea nitrogen [Mass/Vol]30 mg/dLHigh9-24Avon HospitalCASE MGT INIT [facility] 06-56-0404OZWE MGT INIT [facility] ID: [id number] Author: Niurka (Rn) ARA Briseno Service: Care Management Author Type: Registered Nurse Type: Care Mgt Initial Assessment Filed: 11/23/2018 3:42 PM Note Text: CARE MANAGEMENT: ASSESSMENT AND DISCHARGE PLAN SERVICE DATE: 11/23/2018 SERVICE TIME: 2:57 PM PRIMARY CARE PHYSICIAN: Caroline Cochran MD ADMISSION STATUS: Inpatient Needs Prior to Discharge: To Be Determined 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 No Advance Directive: Current Advance Directive: Other Document: See Comment(pt has kp papers in chart) In Chart: Yes Up To Date and Valid: Yes Health Literacy Assessment: Patient is unable to complete at this time due to pt MRDD Bud is his sister Susan Smith. FUNCTIONAL AND COGNITIVE/BEHAVIORAL PRIOR TO ADMISSION: Baseline Mental Status: Alert AND Oriented, Person, Situation and Developmental Delay Functional Status: Dependent Does Patient Currently Receive Any Community Services or Home Care? None [facility] Equipment Prior to Admission: Wheelchair [facility] set up to accomidate Has the Patient Been in a Fci Facility in the Past 30 days? No SOCIAL: Living Arrangement: [facility] With: from [facility] Financial Resources: Disabled Primary Contact: Extended Emergency [...] at this time due to pt from [facility]. Are you interested in bedside delivery of [...] OF CHOICE EXPLAINED: N/A POTENTIAL TRANSITION PLANS Correction/Supervised Living Spoke with pts Sister Susan Smith [phone]. Susan is pts guardian and the paperwork is in the EMR. Per sister plan is for to return to [facility]. The director there is Laura Rowan [phone]. The [facility] may be able to transport pt upon d/c . Pt uses a WC but can walk very short distances with assist and pivot transfer. Pt participates in a work program and may need a return to work paperwork. CM to follow SIGNATURE: Niurka Briseno RN PATIENT NAME: Amol Taylor DATE: November 23, 2018 TIME: 2:57 PM PAGER/CONTACT #: [phone] [facility] Absolute nRBC<0.01Normal<0.01Avon HospitalErythrocyte distribution width (RBC) [Ratio]12.6 %Vpwtdq99.5-15.0Avon HospitalHematocrit (Bld) [Volume fraction]35.7 %Low39.0-51.0Avon HospitalHemoglobin (Bld) [Mass/Vol]11.5 g/dLLow13.0-17.0[facility] Va HospitalMCH (RBC) [Entitic mass]32.5 eXUylgye64.0-34.0[facility]on Va HospitalMCHC (RBC) [Mass/Vol]32.2 g/aBMociat03.5-36.0Avon HospitalMCV (RBC) [Entitic vol]100.8 fL High80.0-100.0Avon HospitalPlatelet mean volume (Bld) [Entitic vol]9.2 fLNormal 9.0-12.7Avon HospitalPlatelets (Bld) [#/Vol]191 10*3/qMPtkzug668-134Flcp HospitalRBC (Bld) [#/Vol]3.54 10*6/uLLow4.20-6.00Avon HospitalWBC (Bld) [#/Vol] 9.96 10*3/uLNormal3.70-11.00Avon HospitalPROGRESSon [id number] ID: [id number] Author: Toshia Vaughn (Rt) Service: Radiology Author Type: Oil Rig Roughneck Type: Progress Notes Filed: 11/23/2018 1:04 PM [...] Rubio RT (R) November 23, 2018 1:04 [facility] ID: [id number] Author: Jaime Lora (Rt) Joshua VILLALPANDO Service: Radiology Author Type: Oil Rig Roughneck Type: Progress Notes Filed: 11/23/2018 12:34 PM [...] RT Miguel II November 23, 2018 12:33 [facility] ID: [id number] Author: Debby Saucedo Service: Hospital Medicine Author Type: Physician Type: Progress Notes Filed: 11/23/2018 11:01 AM Note Text: SERVICE DATE: 11/23/2018 SERVICE TIME: 11:00 AM HOSPITAL MEDICINE PROGRESS NOTE NIGHT AND WEEKEND COVERAGE: Days: [phone], please page me for patient issues. Nights: [phone], please page CC Hospitalist Night coverage pager [phone] HPI SUBJECTIVE Interval Events: No Change no [...] Current Assessment AND Plan Assessment: Transferred from [facility] to [place] per family request CT abdomen/pelvis (11/22/18, OSH): mid distal small bowel obstruciton likely due to adhesion at site of prior small bowel-small bowel anastomosis NGT placed at outside hospital PLAN: Serial KUBs NPO except meds IVF, monitor for signs of fluid overload NGT to S Surgery consulted Seizure (HCC) 11/22/2018 - Present Current Assessment AND Plan Assessment: Chronic, stable PLAN: Continue home meds Fall/seizure precautions Intellectual disability 04/26/2014 - Present Medication and Non-Pharmacologic VTE Prophylaxis/Anticoagulants Anticoagulant AND Antiplatelet Medications (From admission, onward) Start Dose Route Frequency Ordered Stop 11/22/18 1400 heparin 5,000 Units injection (Medical Risk Categories) 5,000 Units SUBCUTANEOUS EVERY 12 HOURS 11/22/18 1356 -- 11/22/18 1400 vte non-pharmacologic prophylaxis - none indicated (ne,il) 11/22/18 1400 activity - mobilize patient ([place]) VTE Prophylaxis: VTE prophylaxis appropriate Plan of care discussed with: Provider, RN, Patient ; Sister POA SIGNATURE: Debby Saucedo MD PATIENT NAME: Amol Taylor DATE: November 23, 2018 TIME: 11:00 AM PAGER/CONTACT #: [phone] [facility] ID: [id number] Author: Wellington Morris III Service: General Surgery [...] capsule Rfl: 3 Unknown at Unknown time HYDROcodone-acetaminophen (NORCO) 5-325 mg per tablet 1 tablet [...] AXR this AM Medication and Non-Pharmacologic VTE Prophylaxis/Anticoagulants Anticoagulant AND Antiplatelet Medications (From admission, onward) Start Dose Route Frequency Ordered Stop 11/22/18 1400 heparin 5,000 Units injection (Medical Risk Categories) 5,000 Units SUBCUTANEOUS EVERY 12 HOURS 11/22/18 1356 -- 09/20/19 1400 vte non-pharmacologic prophylaxis - none indicated (fl,oh) 11/22/18 1400 activity - mobilize patient (ne,oh) VTE Prophylaxis: VTE prophylaxis appropriate SIGNATURE: Wellington Morris III, MD PATIENT NAME: Amol Taylor DATE: November 23, 2018 TIME: 9:20 AM PAGER[facility]CONTACT [facility]XR ABDOMEN 1V SUPINEon 60-80-2682JY ABDOMEN 1V SUPINE* * *Final Report* * * DATE OF [...] the stomach. Impression: Unchanged small bowel dilatation Terrapin Fisher: [facility] Transcribe Date/Time: Nov 23 2018 2:23P Dictated by : LIBRA GARCIA MD This examination was interpreted and the report reviewed and electronically signed by: LIBRA GARCIA MD on Nov 23 2018 2:25PM EST [id number] Regional Medical CenterCBCon 05-34-2382Qnudzqmb nRBC<0.01 Normal<0.01Av HospitalErythrocyte distribution width (RBC) [Ratio]12.6 %Normal 11.5-15.0[facility] HospitalHematocrit (Bld) [Volume fraction]39.9 %Srqnpq84.0-51.0 [facility] Medical CenterHemoglobin (Bld) [Mass/Vol]12.7 g/dLLow13.0-17.0[facility] CenterH (RBC) [Entitic mass]31.8 iBLucgqx52.0-34.0[facility] CenterHC (RBC) [Mass/Vol]31.8 g/qVTuutrz51.5-36.0[facility] Medical CenterV (RBC) [Entitic vol]100.0 uVBakecs90.0-100.0 [place] HospitalPlatelet mean volume (Bld) [Entitic vol]9.2 fLNormal9.0-12.7Avon HospitalPlatelets (Bld) [#/Vol]251 10*3/sDSpkzuo338-726Cemg HospitalRBC (Bld) [#/Vol]3.99 10*6/uLLow4.20-6.00Avon HospitalWBC (Bld) [#/Vol]14.07 10*3/uLHigh 3.70-11.00Avon HospitalComp Metabolic Panelon 47-22-4505Cphlsin [Mass/Vol]4.4 g/dLNormal3.9-4.9Avon HospitalALP [Catalytic activity/Vol]127 U/EPzhs94-706Yoez HospitalALT [Catalytic activity/Vol]12 U/NJsxyfe17-45Osdd HospitalAnion gap [Moles/Vol]12 mmol/LNormal9-18Avon HospitalAST [Catalytic activity/Vol]12 U/LLow 14-40Avon HospitalBilirubin [Mass/Vol]0.4 mg/dLNormal0.2-1.3Avon HospitalCalcium [Mass/Vol]9.7 mg/dLNormal8.5-10.2Avon HospitalChloride [Moles/Vol]105 mmol/L Ooxhdj44-341Zafw HospitalCO2 [Moles/Vol]29 mmol/LAezfos79-83Uhhw Hospital Creatinine [Mass/Vol]1.39 mg/dLHigh0.73-1.22Avon HospitaleGFR- Amer.>60 NormalAvon HospitalGFR/1.73 sq M predicted among non-blacks MDRD (S/P/Bld) [Vol rate/Area]52 .NormalAvon HospitalComment on above:Result Comment: eGFR (Estimated GFR) Units of measure: [...] the eGFR may not accurately reflect actual GFR.Glucose [Mass/Vol]108 mg/dLHigh 74-99Avon HospitalComment on above:Result Comment: The [place] Diabetes Association (ADA) provides guidance for cutoff [...] Standards of Medical Care in Diabetes 2016, [place] [employer]. Diabetes Care. 2016.39(Suppl 1).Potassium [Moles/Vol]4.2 mmol/L Normal3.7-5.1Avon HospitalProtein [Mass/Vol]7.5 g/dLNormal6.3-8.0[facility] Hospital Sodium [Moles/Vol]146 mmol/VPqwy695-767Wthy HospitalUrea nitrogen [Mass/Vol]30 mg/dLHigh9-24Avon HospitalHISTORY PHYSICALon [id number] PHYSICALHNO ID: [id number] Author: Yolanda Alford Service: Hospital Medicine Author Type: Physician Type: HANDP Filed: 11/22/2018 1:58 PM Note Text: SERVICE DATE: 11/22/2018 SERVICE TIME: 1:58 PM HOSPITAL MEDICINE HISTORY AND PHYSICAL PCP: Caroline Cochran MD NIGHT AND WEEKEND COVERAGE: Days: [phone], please page me for patient issues. Nights: [phone], please page [facility] Hospitalist Night coverage pager [phone] SUBJECTIVE Chief Complaint: Nausea/vomiting HPI: Mr. 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 Patient poor historian. History taken from chart review and sign out from [place] physician. Patient was sent to [facility] from [facility] due to concerns for multiple emesis after supper on 11/21/18. Patient states the was having an upset stomach and was found to be sticking his finger down his throat at [place] to induce vomiting. Patient underwent CT abdomen/pelvis (11/22/18, OSH): mid distal small bowel obstruciton likely due to adhesion at site of prior small bowel-small bowel anastomosis. Patient family requesting transfer to [place]. Surgery request for admission under medicine PAST [...] Current Assessment AND Plan Assessment: Transferred from [facility] to [place] per family request CT abdomen/pelvis (11/22/18, OSH): mid distal small bowel obstruciton likely due to adhesion at site of prior small bowel-small bowel anastomosis NGT placed at outside hospital PLAN: KUB to confirm positioning NPO except meds NGT to LIWS suction for now Surgery consulted IVF, monitor for signs of fluid overload Medication and Non-Pharmacologic VTE Prophylaxis/Anticoagulants Anticoagulant AND Antiplatelet Medications (From admission, onward) Start Dose Route Frequency Ordered Stop 11/22/18 1400 heparin 5,000 Units injection (Medical Risk Categories) 5,000 Units SUBCUTANEOUS EVERY 12 HOURS 11/22/18 1356 -- 11/22/18 1400 vte non-pharmacologic prophylaxis - none indicated (ne,il) 11/22/18 1400 activity - mobilize patient (ne,il) VTE Prophylaxis: VTE prophylaxis appropriate SIGNATURE: Yolanda Alford MD PATIENT NAME: Amol Taylor DATE: November 22, 2018 TIME: 1:58 PM PAGER/CONTACT #: [id number] HospitalMagnesiumon [id number] [Mass/Vol]1.8 mg/dLNormal1.7-2.3[facility] HospitalNURSING PROGon [id number] PROGHNO ID: [id number] Author: Emily Issa) AAR Dee Service: ? Author Type: Registered Nurse Type: Nursing Progress Note Filed: 11/22/2018 6:48 PM Note Text: Pt admitted from [place] ED in a stable condition. Oriented to [...] pills. Seizure precaution in place. Bed alarm on.Normal [facility] [id number] ID: [id number] Author: Zahira Mensah (Tech) Service: Radiology Author Type: Oil Rig Roughneck Type: Progress Notes Filed: 11/22/2018 4:38 PM [...] BY: Zahira Mensah November 22, 2018 4:38 [facility]: [id number] Author: Wellington Morris III Service: General Surgery Author Type: Physician Type: Progress Notes Filed: 11/25/2018 10:53 AM Note Text: CONSULT: General surgery SERVICE SERVICE DATE: 11/22/2018 SERVICE TIME: 3:20pm REASON FOR CONSULT: SBO REQUESTING PHYSICIAN: Dr Alford PRIMARY CARE PHYSICIAN: Caroline Cochran MD Subjective Mr. Taylor is a 63 year old male who presents as a transfer from [facility] for SBO. Patient poor historian -->history also obtained from admitting physician HANDP as well as documentation from care everywhere . Attending physician Dr Morris was able to get more detailed history from prior [place] physician before transfer. Family was not at [...] exam. FUNCTIONAL STATUS: Partially dependent-- resides in [place] PAST MEDICAL HISTORY Diagnosis Date - Mental [...] capsule Rfl: 3 Unknown at Unknown time HYDROcodone-acetaminophen (NORCO) 5-325 mg per tablet 1 tablet [...] Disp: Rfl: 0 08/07/2016 at 0600 Current Facility-Administered Medications Medication Dose Route Frequency - LORazepam [...] lesions, rash, and itching PSYCH: +h/o MRDD HEMATOLOGY/LYMPHOLOGY: Limited HPI due patient poor historian ENDOCRINE: [...] containing small bowel without obstruction or strangulation. Impression/Recommendations Small bowel obstruction -Limited HPI -Limited assess [...] November 22, 2018 TIME: 3:58 PM PAGER: [phone] PA STUDENT PROGRESS NOTE SURGICAL SERVICES This note was generated by a PA STUDENT working under the supervision of a Physician Sound Art Instructor. As applicable, the findings, conclusions, and assessment [...] electric chart record. Patient was sent to [facility] from [facility] due to concerns for multiple emesis on 11/21/18. Patient states the was having an upset stomach and was found to be sticking his finger down his throat at [place] to induce vomiting. Patient underwent CT abdomen/pelvis [...] no SOB, chest pain or headache. Current Facility-Administered Medications Medication Dose Route Frequency - LORazepam [...] will require surgical intervention. Wellington Morris III, MD[facility] ID: [id number] Author: Fidelia BeltreRt) [place] Service: Radiology Author Type: Oil Rig Roughneck Type: Progress Notes Filed: 11/22/2018 3:07 PM [...] BY: RT Pieter November 22, 2018 3:07 [facility] ID: [id number] Author: Fidelia Cheatham (Rt) Service: Radiology Author Type: Oil Rig Roughneck Type: Progress Notes Filed: 11/22/2018 3:09 PM Note Text: Radiology Service Progress NoteLivingston Hospital and Health ServicesPhosphoruson 11-22-2018 Phosphate [Mass/Vol]3.6 mg/dLNormal2.7-4.8AvoSt. Vincent Indianapolis HospitalXR ABD 2V SUPINE W UPR/DECUB/CTLon [id number] ABD 2V SUPINE W UPR/DECUB/CTL* * *Final Report* * * DATE OF [...] No obvious free air under the hemidiaphragms. Terrapin Fisher: PSCB Transcribe Date/Time: Nov 22 2018 4:50P Dictated by : NYLA WEST MD This examination was interpreted and the report reviewed and electronically signed by: NYLA WEST MD on Nov 22 2018 4:52PM EST [id number] Caro RegionXR ABDOMEN 1V SUPINEon [id number] ABDOMEN 1V SUPINE* * *Final Report* * * DATE OF [...] bowel throughout the abdomen concerning for obstruction. Terrapin Fisher: PSCB Transcribe Date/Time: Nov 22 2018 3:07P Dictated by : NYLA WEST MD This examination was interpreted and the report reviewed and electronically signed by: NYLA WEST MD on Nov 22 2018 3:10PM EST [id number] Caro RegionLamotrigine Levelon 10-31-2018 Lamotrigine Lvl14.2 ug/mL3 - 15 ug/mLPike [facility] Hospital, CITLALYComment on above: Neither a therapeutic or toxic [...] of lamotrigine may be needed. Levetiracetam Levelon [id number] Lvl42 ug/mLPike Community Hospital, [place] Comment on above: A reference range [...] and toxicity is not known. Phenobarbital Levelon [id number] [Mass/Vol]20.6 ug/mL15 - 40 ug/mL [facility]- [place], [place]YPhenobarbital Date last doseNOT REPORTEDMercy Health- [place], [place] Phenobarbital Dose amountNOT REPORTEDMerJiongji App Health- [place], [place]henobarbital Time last doseNOT REPORTEDMerJiongji App Health- [place], KYVitamin D 25 Hydroxyon 10-31-2018 Interpretation and review of laboratory resultsAbnormalMerJiongji App Health- [place], KYVit D, 25-Ypqqbkz74.6 ng/mLLow30 - 100 ng/mLUc HealthJiongji App Health- [place], KYComment on above: Reference Range: Vitamin D status Range Deficiency <20 ng/mL Mild Deficiency 20-30 ng/mL Sufficiency 30-100 ng/mL Toxicity >100 ng/mL Vital Signs Date TimeVital SignValuePerforming YbffxibxkUzwfdkxl59-98-5931 08:20-0500Body aeojfbershm95.59 [degF]Rosario Ge MD Work Phone: [facility]11-06-2025 08:20-0500Diastolic blood qtdrfirz05 mm[Hg]Rosario Ge MD Work Phone: [facility]11-06-2025 08:20-0500Heart rate 64 /minRosario Ge MD Work Phone: [facility]11-06-2025 08:20-0500 Respiratory rate22 /minRosario Ge MD Work Phone: [facility]11-06-2025 08:20-1896UfD7% (BldA) [Mass fraction]95 %Rosario Ge MD Work Phone: [facility]11-06-2025 08:20-0500Systolic blood ycvpjkvo492 mm[Hg]Rosario Ge MD Work Phone: [facility]11-06-2025 04:29-0500Body mass index (BMI) [Ratio]29.31 kg/i2XusgwqzRosario Ge MD Work Phone: [facility]11-06-2025 04:29-0500Body .04 kgRosario Ge MD Work Phone: [facility]11-02-2025 20:48-0500Body elclet158.3 cmRosario Ge MD Work Phone: [facility]08-26-2025 11:27-0400Body hvcshjvmoae96.5 [degF]Carson Dior MD Work Phone: [facility] HospitalKcjpjyacmr20-57-8041 11:27-0400Diastolic blood linydvnf40 mm[Hg]Carson Dior MD Work Phone: [facility] HospitalWnetyexgkx15-29-8706 11:27-0400Heart rate96 /min Carson Dior MD Work Phone: [facility] HospitalLdfjtvmdwk27-72-1306 11:27-0400Respiratory rate22 /minCarson Dior MD Work Phone: [facility] HospitalJrgpqafbsw25-63-2265 11:27-4636CeW1% (BldA) [Mass fraction]95 %Carson Dior MD Work Phone: [facility] HospitalTwlzifghfc10-97-9131 11:27-0400Systolic blood mvqorbod237 mm[Hg]Carson Dior MD Work Phone: [facility] HospitalAgnxhaaxiv88-72-3769 15:03-0400Body temperature 97.3 [degF]Sanam Guido MD Work Phone: [facility]08-17-2025 15:03-0400Diastolic blood eljzjfre75 mm[Hg]Sanam Guido MD Work Phone: [address] [place], [place] 1243808-17-2025 15:03-0400Heart rate 88 /minSanam Guido MD Work Phone: 1(348)[address]08-17-2025 15:03-0400 Respiratory rate18 /minSanam Guido MD Work Phone: 1(183)[address]08-17-2025 15:03-1109VsW2% (BldA) [Mass fraction]96 %Sanam Guido MD Work Phone: 1(269)[address]08-17-2025 15:03-0400Systolic blood hjjpzxym246 mm[Hg]Sanam Guido MD Work Phone: 1(978)[address]08-17-2025 04:58-0400Body mass index (BMI) [Ratio]34.7 kg/t6AsukdpwSanam Guido MD Work Phone: 1(305)[address]08-17-2025 04:58-0400Body ocbttq37.48 kgSanam Guido MD Work Phone: 1(764)[address]08-12-2025 18:18-0400Body riwzwi406.6 cmRudali Guido MD Work Phone: 1(538)[address]07-09-2025 10:59-0400Body lockzeuekff87.81 [degF]Carson Dior MD Work Phone: [facility] HospitalHppjvkbznx59-28-0860 10:59-0400Diastolic blood yofzzlil77 mm[Hg]Carson Dior MD Work Phone: [facility] HospitalDvkodtessq17-15-8192 10:59-0400Heart rate90 /min Carson Dior MD Work Phone: [facility] HospitalHwulqcujhe53-53-4255 10:59-0400Respiratory rate22 /minCarson Dior MD Work Phone: [facility] HospitalKdtogzfdmt38-23-7861 10:59-1848LhE2% (BldA) [Mass fraction]93 %Carson Dior MD Work Phone: [facility] HospitalYmauewqwqj84-72-2818 10:59-0400Systolic blood ivqwzoqg213 mm[Hg]Carson Dior MD Work Phone: [facility] HospitalPmkmmhhbkt44-74-8814 06:39-0400Body temperature 98.2 [degF]Lyla Burciaga MD Work Phone: [facility]06-19-2025 06:39-0400Diastolic blood otmcoazp88 mm[Hg]Lyla Burciaga MD Work Phone: [facility]06-19-2025 06:39-0400Heart rate77 /Pratik Burciaga MD Work Phone: [facility]06-19-2025 06:39-0400 Respiratory rate28 /Pratik Burciaga MD Work Phone: [facility]06-19-2025 06:39-3669NjV0% (BldA) [Mass fraction]97 %Lyla Burciaga MD Work Phone: [facility]06-19-2025 06:39-0400Systolic blood lintwirc370 mm[Hg]Lyla Burciaga MD Work Phone: [facility]06-19-2025 03:26-0400Body mass index (BMI) [Ratio]30.3 kg/p8KjranpLyla Burciaga MD Work Phone: [facility]06-19-2025 03:26-0400Body .8 kgLyla Burciaga MD Work Phone: [facility]06-18-2025 11:34-0400Body puhwtf732.8 cmSjie Burciaga MD Work Phone: [facility]06-04-2025 11:08-0400Body osbqlqvhfwv66.81 [degF]Carson Dior MD Work Phone: [facility] HospitalRairykxrnq61-81-6323 11:08-0400Diastolic blood gxrexjlf34 mm[Hg]Carson Dior MD Work Phone: [facility] HospitalJghyglhhez14-16-8211 11:08-0400Heart rate80 /min Carson Dior MD Work Phone: [facility] HospitalZypduihivc58-37-5693 11:08-0400Respiratory rate22 /minCarson Dior MD Work Phone: [facility] HospitalHibatifwnm56-52-7491 11:08-0770PvN2% (BldA) [Mass fraction]96 %Carson Dior MD Work Phone: [facility] HospitalCcypufbomm98-50-1448 11:08-0400Systolic blood wabomjoh899 mm[Hg]Carson Dior MD Work Phone: [facility] HospitalXwcuakqrtv52-74-8614 12:03-0400Body temperature 98.06 [degF]ELSIERAJNI CASTANON [facility]05-19-2025 12:03-0400Diastolic blood oyqzxwxe38 mm[Hg]ELSIE CASTANON [facility]05-19-2025 12:03-0400Respiratory rate16 /minELSIE CASTANON [facility]05-19-2025 12:03-0400Systolic blood xwpwasma565 mm[Hg]ELSIERAJNI CASTANON [facility]05-14-2025 12:02-0400Body .8 Gloria Lara MD Work Phone: [facility]05-14-2025 09:05-0400Body fivgopmjprd93.9 [degF]Loki aLra MD Work Phone: [facility]05-14-2025 09:05-0400Diastolic blood dxjdkecp46 mm[Hg]Loki Lara MD Work Phone: [employer]05-14-2025 09:05-0400Heart rate73 /minThscarlet Lara MD Work Phone: [facility] [employer]05-14-2025 09:05-0400 Respiratory rate18 /minLoki Lara MD Work Phone: [employer]05-14-2025 09:05-5239BgH9% (BldA) [Mass fraction]96 %Loki Lara MD Work Phone: [employer]05-14-2025 09:05-0400Systolic blood qlkngyaw440 mm[Hg]Loki Lara MD Work Phone: [employer]05-14-2025 02:16-0400Body mass index (BMI) [Ratio]30.71 kg/t0MowgdLoki Lara MD Work Phone: [employer]05-14-2025 02:16-0400Body fniozr21.07 kgThscarlet Lara MD Work Phone: [employer] Nocgir62-98-2461 10:32-0400Diastolic blood hrxdbajk08 mm[Hg]Shawnee Kayleigh DO Work Phone: payasUgymCooper County Memorial HospitalOtbwmoaqfc05-67-7378 10:32-0400Heart rate85 /min Shawnee Kayleigh DO Work Phone: noFloqq Xtfvvdxlcd65-53-0787 10:32-8877EqN9% (BldA) [Mass fraction]96 %Shawnee Kayleigh DO Work Phone: noFloqq Vpxohfkfxw22-22-1129 10:32-0400Systolic blood eeypolvn800 mm[Hg]Shawnee Kayleigh DO Work Phone: NOFloqq Cbabaeylmh66-38-8539 11:08-0400Body temperature 98.49 [degF]Luís Aichholz PRODUCTION WOOD CRAFTSMAN Work Phone: [facility] HospitalUqrdectidm98-18-1645 11:08-0400Body .16 kgLuís Chino PRODUCTION WOOD CRAFTSMAN Work Phone: [facility] HealthcareComment on above:pt stood up using 1 assist w/ gaitbelt and walker. pt went from sitting position to standing for whe rfuezko31-84-9486 11:08-0400Diastolic blood mm[Hg]Luís Guevaramag PRODUCTION WOOD CRAFTSMAN Work Phone: [facility] HospitalLvkfhxupye34-01-1541 11:08-0400Heart rate77 /min Luís Chino [employer]ODUCTION WO[employer] CRAFTSMAN Work Phone: [facility] HospitalHtjufslmkq81-52-6274 11:08-0400Respiratory rate20 /minLuís Chino PRODUCTION WOOD CRAFTSMAN Work Phone: [facility] HospitalMknpuuoclc56-12-8677 11:08-7032XiT6% (BldA) [Mass fraction]97 %Luís Chino [employer]ODUCTION WO[employer] CRAFTSMAN Work Phone: [facility] HospitalQjcvjuoqto79-98-4898 11:08-0400Systolic blood leoiqnhf665 mm[Hg]Luís Chino PRODUCTION WOOD CRAFTSMAN Work Phone: [facility] HospitalCnvshlsjly65-65-4323 14:00-0400Body temperature 98.71 [degF]Anthony Cabrera MD Work Phone: [facility]04-17-2025 14:00-0400Diastolic blood mm[Hg]Anthony Cabrera MD Work Phone: Bon [address]17-2025 14:00-0400Heart rate83 /minAnthony Cabrera MD Work Phone: Bon [address]17-2025 14:00-0400 Respiratory rate18 /minAnthony Cabrera MD Work Phone: Bon [place] [address]-17-2025 14:00-8915RoV8% (BldA) [Mass fraction]95 %Anthony Cabrera MD Work Phone: [facility]04-17-2025 14:00-0400Systolic blood rhsahqzo956 mm[Hg]Anthony Cabrera MD Work Phone: [facility]04-17-2025 00:50-0400Body mass index (BMI) [Ratio]29.6 kg/m2Anthony Cabrera MD Work Phone: [facility]04-17-2025 00:50-0400Body .58 kgAnthony Cabrera MD Work Phone: [facility]04-16-2025 13:25-0400Body epjfwm360.8 Jamie Cabrera MD Work Phone: [facility]03-20-2025 13:14-0400Diastolic blood auhaczmv56 mm[Hg]Uma Clark MD Work Phone: [facility]03-20-2025 13:14-0400Heart rate85 /min Uma Clark MD Work Phone: [facility]03-20-2025 13:14-0400Respiratory rate 18 /minUma Clark MD Work Phone: [facility]03-20-2025 13:14-0400Systolic blood nbhjukso689 mm[Hg]Uma Clark MD Work Phone: [facility]02-19-2025 09:00-0500Body mass index (BMI) [Ratio]28.34 kg/n1HiokwziPaty Washington MD Work Phone: [facility]02-19-2025 09:00-0500Body qnitqc26.58 kgPaty Washington MD Work Phone: [facility]02-19-2025 08:56-0500Body qguqxekvkff04 [degF]Paty Washington MD Work Phone: [facility]02-19-2025 08:56-0500Diastolic blood tqdeomre94 mm[Hg]Paty Washington MD Work Phone: [facility]02-19-2025 08:56-0500Heart rate76 /minPaty Washington MD Work Phone: [facility]02-19-2025 08:56-0500 Respiratory rate18 /minPaty Washington MD Work Phone: W[facility]02-19-2025 08:56-8345GmX8% (BldA) [Mass fraction]96 %Paty Washington MD Work Phone: [facility]02-19-2025 08:56-0500Systolic blood lfviodmh993 mm[Hg]Paty Washington MD Work Phone: [facility]02-17-2025 09:47-0500Body dowrlx179.8 cmPaty Washington MD Work Phone: [facility]02-10-2025 10:58-0500Body qbwqazpydbx48.39 [degF]Carson Dior MD Work Phone: [facility] HospitalWtpnmvgvzu86-57-0357 10:58-0500Body umnuqh715.85 kgRochellec Saturnino MOELLER Work Phone: [facility] HospitalYzwwjxublv47-58-3682 10:58-0500Diastolic blood sbajssss43 mm[Hg]Carson Dior MD Work Phone: [facility] HospitalRhszgosnyc82-42-0060 10:58-0500Heart rate78 /min Carson Dior MD Work Phone: [facility] HospitalXqrhrmpayz38-22-6203 10:58-6989NxW6% (BldA) [Mass fraction]98 %Carson Dior MD Work Phone: [facility] HospitalOjqwfexarq82-41-8443 10:58-0500Systolic blood gfknoyny890 mm[Hg]Carson Dior MD Work Phone: [facility] HospitalZuuyofjymf29-99-9991 11:28-0500Body temperature 97.5 [degF]Carson Dior MD Work Phone: [facility] HospitalKsekchvmup71-28-3760 11:28-0500Diastolic blood zpttxnat83 mm[Hg]Carson Dior MD Work Phone: [facility] HospitalRxykbuvvdl55-69-1060 11:28-0500Heart rate82 /min Carson Dior MD Work Phone: [facility] HospitalIfffmbxmgn76-87-9598 11:28-0500Respiratory rate24 /minCarson Dior MD Work Phone: [facility] HospitalHtrdbyhgwc05-07-9351 11:28-7342XsM2% (BldA) [Mass fraction]97 %Carson Dior MD Work Phone: [facility] HospitalCmjwthiude95-34-2637 11:28-0500Systolic blood mm[Hg]Carson Dior MD Work Phone: [facility] HospitalIzwsujcvrs90-34-4482 08:30-0500Body temperature 96.6 [degF]Jackson Gates MD Work Phone: Bon [employer] [facility] HospitalPavlov MediaWhiwyv20-08-4509 08:30-0500Diastolic blood wzdclgli54 mm[Hg]Jackson Gates MD Work Phone: [facility] CenterOn[facility] HospitalHarbinger Medical Pmewjm34-98-6625 08:30-0500Heart rate83 /Shanta Gates MD Work Phone: [facility] CenterOn[facility] HospitalMxmemf48-84-3007 08:30-0500 Respiratory rate20 /Shanta Gates MD Work Phone: [facility] [employer] [facility] HospitalBqyvbt01-59-7705 08:30-7166XdU8% (BldA) [Mass fraction]97 %Jackson Gates MD Work Phone: [facility] [employer] [facility] HospitalHar[facility] Ltbkzt74-49-6177 08:30-0500Systolic blood ylkkpzsj152 mm[Hg]Jackson Gates MD Work Phone: [facility] [employer] [facility] HospitalPavlov MediaRuecok81-51-0368 05:10-0500Body mass index (BMI) [Ratio]28.34 kg/h9IysmlJackson Gates MD Work Phone: [facility]12-05-2024 05:10-0500Body icwyqs16.58 kgJackson Gates MD Work Phone: [facility] CenterComment on above:with seizure pads ao16-70-6505 09:34-0500Body zuiibi370.8 cmTmingo Gates MD Work Phone: [facility]11-19-2024 17:47-0500Diastolic blood mm[Hg]Shawnee Kayleigh DO Work Phone: [facility] HospitalGucwgzmgqv01-38-0085 17:47-0500Heart rate74 /min Shawnee Kayleigh DO Work Phone: [facility] HospitalPhhblhudkx41-48-1978 17:47-8040PhJ4% (BldA) [Mass fraction]92 %Shawnee Kayleigh DO Work Phone: noCo[facility] HospitalOqnyuywexp66-35-5684 17:47-0500Systolic blood thftyjab108 mm[Hg]Shawnee Kayleigh DO Work Phone: noCo[facility] Memorial HospitalSzvcjtvndw05-18-7567 13:16-0400Body gttiys681.6 cmUma Clark MD Work Phone: [facility]09-19-2024 13:16-0400Body mass index (BMI) [Ratio]29.61 kg/u0FmotiUma Clark MD Work Phone: [facility]09-19-2024 13:16-0400Body temperature 97.81 [degF]Uma Clark MD Work Phone: [facility]09-19-2024 13:16-0400Body czcynj45.2 kgUma Clark MD Work Phone: [facility]09-19-2024 13:16-0400Diastolic blood mm[Hg]Uma Clark MD Work Phone: [facility]09-19-2024 13:16-0400Heart rate71 /min Uma Clark MD Work Phone: [facility]09-19-2024 13:16-0400Respiratory rate 18 /minUma Clark MD Work Phone: [facility]09-19-2024 13:16-5278EtM5% (BldA) [Mass fraction]97 %Uma Clark MD Work Phone: [facility]09-19-2024 13:16-0400Systolic blood tayovmtp405 mm[Hg]Uma Clark MD Work Phone: [facility]05-28-2024 14:01-0400Blood Pressure LocationJENNIFER GENTRY [facility]05-28-2024 14:01-0400Body allzomdbbmb20.06 [degF]ELSIE CASTANON [facility]05-28-2024 14:01-0400Diastolic blood giixalns26 mm[Hg]ELSIE CASTANON [facility]05-28-2024 14:01-0400Heart rate72 /minJENNIFER GENTRY [facility]05-28-2024 14:01-0400Respiratory rate16 /minJENNIFER GENTRY [facility]05-28-2024 14:01-0400Systolic blood xcxljelh878 mm[Hg]ELSIE CASTANON [facility]04-19-2024 07:45-0400Body xyqjfilkuxr29.1 [degF]Reva Galindo MD Work Phone: [facility]04-19-2024 07:45-0400Diastolic blood ilgtpccp18 mm[Hg]Reva Galindo MD Work Phone: [facility]04-19-2024 07:45-0400Heart rate86 /Maurisio Galindo MD Work Phone: [facility]04-19-2024 07:45-0400 Respiratory rate15 /Maurisio Galindo MD Work Phone: [facility]04-19-2024 07:45-7150AsC1% (BldA) [Mass fraction]98 %Reva Galindo MD Work Phone: [facility]04-19-2024 07:45-0400Systolic blood dydeymmn358 mm[Hg]Reva Galindo MD Work Phone: [facility]04-17-2024 22:10-0400Body ozegfj023.8 cmReva Galindo MD Work Phone: [facility]04-17-2024 22:10-0400Body mass index (BMI) [Ratio]22.84 kg/o1FgxwihrvvtalReva Galindo MD Work Phone: [facility]04-17-2024 22:10-0400Body .21 kgReva Galindo MD Work Phone: [facility]04-11-2024 13:28-0400Body izwleudhczy09.9 [degF]Hadley Swade DO Work Phone: [facility]04-11-2024 13:28-0400Diastolic blood ifkopste89 mm[Hg]Hadley Swade DO Work Phone: [facility]04-11-2024 13:28-0400Heart rate72 /minStephen Swade DO Work Phone: [facility]04-11-2024 13:28-0400 Respiratory rate18 /minStephen Swade DO Work Phone: [facility] TXJRJR34-50-4020 13:28-3640BcA1% (BldA) [Mass fraction]98 %Hadley Swade DO Work Phone: [facility] MZJKIR83-78-2403 13:28-0400Systolic blood zgcrlbsy811 mm[Hg]Hadley Swade DO Work Phone: [facility] EAZYWJ25-71-9551 06:00-0400Body mass index (BMI) [Ratio]24.56 kg/z2Kbfctew Swade DO Work Phone: [facility]04-11-2024 06:00-0400Body bwupbn63.66 kgStephen Swade DO Work Phone: [facility] [id number] 06:31-0400Body .8 cmStephen Swade DO Work Phone: [facility]-25-2024 11:37-0500Body uotdyxcbown51.3 [degF]Bolivar Blood DO Work Phone: [facility] [id number] 11:37-0500Diastolic blood ohwvevtm99 mm[Hg]Bolivar Blood DO Work Phone: bTAWNY [facility] [id number] 11:37-0500Heart rate82 /minJeffrey Blood DO Work Phone: bTAWNY [facility] [id number] 11:37-0500 Respiratory rate16 /minJeffrey Blood DO Work Phone: [facility] [id number] 11:37-0632UoV1% (BldA) [Mass fraction]98 %Bolivar Blood DO Work Phone: bON [facility] [id number] 11:37-0500Systolic blood rkzuscrm32 mm[Hg]Bolivar Blood DO Work Phone: bon [facility] [id number] 06:44-0500Body mass index (BMI) [Ratio]23.19 kg/k9Jravalu Blood DO Work Phone: bon [facility] [id number] 06:44-0500Body cfdizm47.3 kgJechavo Blood DO Work Phone: bon [facility] [id number] 22:45-0500Body eojfwk079.8 cmJechavo Blood DO Work Phone: bon [facility] [id number] 07:15-0500Body ijwvycegrgj12.9 [degF]Edilma Eastman MD Work Phone: [facility] [id number] 07:15-0500Diastolic blood fcildzhz76 mm[Hg]Edilma Eastman MD Work Phone: [facility] [id number] 07:15-0500Heart rate 77 /minEdilma Eastman MD Work Phone: [facility] [id number] 07:15-0500 Respiratory rate16 /minEdilma Eastman MD Work Phone: [facility] Dfcabu53-25-6410 07:15-5139QlJ6% (BldA) [Mass fraction]96 %Edilma Eastman MD Work Phone: [facility] [id number] 07:15-0500Systolic blood tmfvufht61 mm[Hg]Edilma Eastman MD Work Phone: [facility] Yeifiz03-51-6044 05:23-0500Body mass index (BMI) [Ratio]28.47 kg/c4UtluhjEdilma Eastman MD Work Phone: [facility] [id number] 05:23-0500Body kxdooy64 kgEdilma Eastman MD Work Phone: [facility]02-05-2024 19:56-0500Body yngpxi529.6 Halley Eastman MD Work Phone: [facility]09-09-2023 11:39-0400Hourly RoundingMelchor Rivera [address] [place], [place] [id number] 11:39-0400 Promise to ReturnWilliam Rivera [address] [place], [place] [id number] 11:17-0400Heart rate50 /minWilliam Rivera [address] [place], [place] 4098309-09-2023 11:17-0677LmY4% (BldA) [Mass fraction]94 %Melchor Rivera [address]09-09-2023 11:17-0400Body irxewiablza50.52 [degF]Melchor Rivera [address] [place], [place] [id number] 11:17-0400 Diastolic blood kucdwmtz39 mm[Hg]Melchor Rivera [address] [place], [place] 8750809-09-2023 11:17-0400Mean blood jijimoff33 mm[Hg]Melchor Rivera [address] [place], [place] 8750809-09-2023 11:17-0400 Systolic blood rbvpkopb322 mm[Hg]Melchor Rivera [address] [place], [place] 8750809-09-2023 11:00-0400Blood Pressure LocationWillialakesha Kensh [address] [place], [place] [id number] 11:00-0400 Respiratory rate18 /minWilliam Rivera [address] [place], [place] 8750809-09-2023 10:44-0400 Hourly RoundingWilliam Rivera [address] [place], [place] 8750809-09-2023 10:44-0400 Promise to ReturnWilliam Rivera [facility]09-09-2023 09:50-0400 Hourly RoundingWimoy Rivera [facility]09-09-2023 09:50-0400 Promise to ReturnWimoy Rivera [facility]09-09-2023 09:11-0400 Diastolic blood oaczyhqb72 mm[Hg]Melchor Rivera [address] [place], [place] [id number] 09:11-0400 Systolic blood mm[Hg]Melchor Rivera [address]09-09-2023 07:38-0400Heart rate77 /minWilliam Rivera [address]09-09-2023 07:38-2335RjF7% (BldA) [Mass fraction]94 %Melchor Rivera [address] [place], [place] 8750809-09-2023 07:38-0400Body khesbtlmrys56.06 [degF]Melchor Rivera [facility]09-09-2023 07:38-0400 Diastolic blood onjjjwtg53 mm[Hg]Melchor Rivera [facility]09-09-2023 07:38-0400Mean blood pimduqnb83 mm[Hg]Melchor Rivera [address] [place], [place] [id number] 07:38-0400 Systolic blood mm[Hg]Melchor Rivera [address] [place], [place] 8750809-09-2023 05:03-0400Heart rate54 /minWillialakesha Rivera [facility]09-09-2023 05:03-0400Mean blood qqzrbwuw49 mm[Hg]Melchor Rivera [address] [place], [place] 8750809-09-2023 01:39-4029ImS7% (BldA) [Mass fraction]95 %Melchor Rivera [address]09-09-2023 01:39-0400Body .88 [degF]Melchor Rivera [address]09-08-2023 15:00-0400Blood Pressure LocationWilliam Miguel [address]09-08-2023 15:00-0400Mean blood czldvjme19 mm[Hg]Melchor Rivera [address]09-08-2023 15:00-0400 Respiratory rate16 /minWilliam Miguel [address]09-07-2023 08:00-0400Body buiixvtezts77.34 [degF]Melchor Rivera [address]09-07-2023 00:00-0400Body ktjrqvmadre25.34 [degF]Melchor Rivera [address]09-06-2023 15:52-0400Body .88 [degF]Melchor Rivera [address]09-06-2023 15:52-0400Mean blood onidglnu98 mm[Hg]Melchor Rivera [address] [place], [place] [id number] 14:09-0400Heart rate84 /minWilliam Miguel [address] [place], [place] [id number] 13:10-0400Mean blood nuriijdt90 mm[Hg]Melchor Rivera [address]09-06-2023 08:57-0400Heart fvub804 /minWilliam Miguel [address] [place], [place] 4098307-06-2023 07:45-0400Body sjliecdmhaz00.39 [degF]Lyla Burciaga MD Work Phone: [facility]07-06-2023 07:45-0400Diastolic blood tmmkkfop59 mm[Hg]Lyla Burciaga MD Work Phone: [facility]07-06-2023 07:45-0400Heart rate58 /Pratik Burciaga MD Work Phone: [facility]07-06-2023 07:45-0400 Respiratory rate22 /Pratik Burciaga MD Work Phone: [facility]07-06-2023 07:45-9620OvC6% (BldA) [Mass fraction]100 %Lyla Burciaga MD Work Phone: [facility]07-06-2023 07:45-0400Systolic blood myizbkkc454 mm[Hg]Lyla Burciaga MD Work Phone: [facility]07-06-2023 04:30-0400Body mass index (BMI) [Ratio]29.79 kg/c7ArwxhwLyla Burciaga MD Work Phone: [facility]07-06-2023 04:30-0400Body btkuyq89.19 kgLyla Burciaga MD Work Phone: [facility]07-03-2023 12:26-0400Body nimegy027.1 cmSjie Burciaga MD Work Phone: [facility]04-25-2023 12:00-0400Hourly RoundingNegritocinta Guanacotine [facility]04-25-2023 12:00-0400 Promise to ReturnJacinta Robenstine [facility]04-25-2023 11:51-0400Blood Pressure LocationJacinta Robenstine [address] [place], [place] [id number] 11:51-0400Body tbthfwkjamf71.06 [degF]Kari Robenstine [address] [place], [place] [id number] 11:51-0400 Diastolic blood ywhcnbed42 mm[Hg]Kari Robenstine [address] [place], [place] 4098304-25-2023 11:51-0400Heart rate81 /minJacinta Robenstine [address] [place], [place] 4098304-25-2023 11:51-0400Mean blood ovdokmxm36 mm[Hg]Kari Robenstine [address] [place], [place] 4098304-25-2023 11:51-0400 Respiratory rate18 /minJacinta Robenstine [address] [place], [place] 4098304-25-2023 11:51-4292HkK3% (BldA) [Mass fraction]94 %Kari Robenstine [address] [place], [place] 4098304-25-2023 11:51-0400 Systolic blood kcsfzzuu120 mm[Hg]Kari Robenstine [address] [place], [place] 4098304-25-2023 11:20-0400 Hourly RoundingJacinta Robenstine [address] [place], [place] 4098304-25-2023 11:20-0400 Promise to ReturnJacinta Robenstine [address] [place], [place] 4098304-25-2023 10:00-0400 Hourly RoundingJacinta Robenstine [address] [place], [place] 4098304-25-2023 10:00-0400 Promise to ReturnJacinta Robenstine [address] [place], [place] 4098304-25-2023 08:20-0400 Diastolic blood cfzxhrap27 mm[Hg]Kari Robenstine [address] [place], [place] 4098304-25-2023 08:20-0400 Systolic blood dhyumcou670 mm[Hg]Kari Robenstine [address] [place], [place] 4098304-25-2023 07:30-0400Heart rate72 /minJacinta Robenstine [address] [place], [place] 4098304-25-2023 07:30-7242EwC8% (BldA) [Mass fraction]95 %Kari Robenstine [address] [place], [place] 4098304-25-2023 07:30-0400Body wrfesndfxna60.06 [degF]Kari Robenstine [address] [place], [place] 4098304-25-2023 07:29-0400 Diastolic blood dsidxtpi61 mm[Hg]Kari Robenstine [address] [place], [place] 4098304-25-2023 07:29-0400Mean blood yfzgsbba25 mm[Hg]Kari Robenstine [address] [place], [place] 4098304-25-2023 07:29-0400 Systolic blood wiwgsbup779 mm[Hg]Kari Robenstine [address] [place], [place] 4098304-25-2023 02:02-0400Blood Pressure LocationJacinta Robenstine [address] [place], [place] 4098304-25-2023 02:02-0400Body ngaqnyctcln20.88 [degF]Kari Robenstine [address] [place], [place] 4098304-25-2023 02:02-0400Heart rate67 /minJacinta Robenstine [address] [place], [place] 4098304-25-2023 02:02-0400Mean blood zimuxleu53 mm[Hg]Kari Robenstine [address] [place], [place] 4098304-25-2023 02:02-0400 Respiratory rate20 /minJacinta Robenstine [address] [place], [place] 4098304-25-2023 02:02-4374FhW8% (BldA) [Mass fraction]96 %Kari Robenstine [address] [place], [place] 4098304-24-2023 22:29-0400Mean blood csmwaswv71 mm[Hg]Kari Robenstine [address] [place], [place] 4098304-24-2023 16:25-0400Body lsdsffehtlt75.88 [degF]Kari Robenstine [address] [place], [place] 4098304-24-2023 16:25-0400Mean blood vdkusuui45 mm[Hg]Kari Robenstine [address] [place], [place] 4098304-24-2023 11:51-0400Body pwdmfwwhefu48.98 [degF]Kari Robenstine [address] [place], [place] 4098304-24-2023 11:50-0400Mean blood tlutulxc93 mm[Hg]Kari Robenstine [address] [place], [place] 4098304-24-2023 07:48-0400Body rzgjyzurxqv64.6 [degF]Kari Robenstine [address] [place], [place] 4098304-23-2023 00:00-0400Heart rate82 /minJacinta Robenstine [address] [place], [place] 8750804-22-2023 22:00-0400gluc 104 mg/dLJacinta Robenstine [address] [place], [place] 4098304-22-2023 01:37-0400Heart rate58 /minJacinta Robenstine [address] [place], [place] 4098304-21-2023 20:33-0400Body jrxjqhsbemt07.3 [degF]Jeanette Chacon MD Work Phone: [facility]04-21-2023 20:33-0400Diastolic blood kywonjwq50 mm[Hg]Jeanette Chacon MD Work Phone: [facility] [employer] [facility]ITALNeRRe TherapeuticsPXNPDK22-34-2360 20:33-0400Heart rate57 /minJeanette Chacon MD Work Phone: [facility] [employer] [facility]ITALNeRRe [id number] 20:33-0400 Respiratory rate18 /minJeanette Chacon MD Work Phone: [facility]ENTERUVWVYD22-07-7015 20:33-1427SlZ5% (BldA) [Mass fraction]96 %Jeanette Chacon MD Work Phone: [facility] [employer] [facility]ITALNeRRe TherapeuticsAFHRDI60-73-6899 20:33-0400Systolic blood abaaquto421 mm[Hg]Jeanette Chacon MD Work Phone: [facility] [id number] 05:39-0400Body mass index (BMI) [Ratio]29.38 kg/m2Jeanette Chacon MD Work Phone: [facility] [employer] [facility] [id number] 05:39-0400Body .56 kgJeanette Chacon MD Work Phone: [facility] [employer] [facility]ITALNeRRe TherapeuticsFBXGMW10-87-3955 10:07-0400Body qlriyq645.6 cmJeanette Chacon MD Work Phone: [facility] [employer] [facility]ITALNeRRe [id number] 14:00-0500Body fpnwecgizuf30.5 [degF]Aron Andes DO Work Phone: [facility] [employer] [facility]ITALNeRRe [id number] 14:00-0500Diastolic blood vpdwzamr10 mm[Hg]Aron Andes DO Work Phone: [facility] [employer]03-10-2023 14:00-0500Heart rate67 /minJustin Andes DO Work Phone: [facility] [employer]03-10-2023 14:00-0500 Respiratory rate18 /minJustin Andes DO Work Phone: [facility]03-10-2023 14:00-2175IeR9% (BldA) [Mass fraction]94 %Aron Andes DO Work Phone: [facility]03-10-2023 14:00-0500Systolic blood ducbtlaq36 mm[Hg]Aron Andes DO Work Phone: [facility]03-10-2023 05:00-0500Body mass index (BMI) [Ratio]29.54 kg/z2Yzmecb Andes DO Work Phone: [facility]03-10-2023 05:00-0500Body paumop81.01 kgJustin Andes DO Work Phone: [facility]03-07-2023 08:24-0500Body gxttuh021.6 cmJustin Andes DO Work Phone: [facility]07-09-2022 21:31-0400Body ygeqvynbksi88.7 [degF]Larry Warner [facility]07-09-2022 21:31-0400Diastolic blood ygclcwsg91 mm[Hg]Larry Warner [facility]07-09-2022 21:31-0400Heart rate96 /minMatthew Timmy [facility]07-09-2022 21:31-0400Systolic blood mm[Hg]Larry Warner [facility]06-30-2022 10:35-0400Blood Pressure LocationWiselenagaldino [employer] [facility]06-30-2022 10:35-0400 Diastolic blood owdmcgxs39 mm[Hg]Melchor Rivera [facility]06-30-2022 10:35-0400Heart rate86 /minRadhaselenagaldino Rivera [facility]06-30-2022 10:35-0400 Respiratory rate16 /minWiselenagaldino Kensh [address] [place], [place] 8750806-30-2022 10:35-0400 Systolic blood wufvnxlb723 mm[Hg]Melchor Rivera [address]06-10-2022 10:30-0400Blood Pressure LocationMelchor Rivera [address]06-10-2022 10:30-0400Body eornffbtedk23.34 [degF]Melchor Rivera [address]06-10-2022 10:30-0400 Diastolic blood blyapqej63 mm[Hg]Melchor Rivera [address]06-10-2022 10:30-0400Heart rate74 /minWilliam Rivera [address]06-10-2022 10:30-0400 Respiratory rate16 /minWilliam Rivera [address]06-10-2022 10:30-0400 Systolic blood gpevytkx574 mm[Hg]Melchor Rivera [address] [place], [place] 4098305-27-2022 10:01-0400Blood Pressure LocationMelchor Rivera [address] [place], [place] 4098305-27-2022 10:01-0400Body ijhwtblsvxm03.98 [degF]Melchor Rivera [address] [place], [place] 8750805-27-2022 10:01-0400 Diastolic blood wrzxkpaa23 mm[Hg]Melchor Rivera [address] [place], [place] 8750805-27-2022 10:01-0400Heart rate91 /minWilliam Rivera [address] [place], [place] 8750805-27-2022 10:01-0400 Respiratory rate16 /minWilliam Rivera [address] [place], [place] [address]8305-27-2022 10:01-0400 Systolic blood ygvoyrec284 mm[Hg]Melchor Kensh [facility]05-13-2022 11:53-0400Blood Pressure LocationLaney Paula [address]05-13-2022 11:53-0400Body eiptlyjqyii37.34 [degF]Laney Paula [address]05-13-2022 11:53-0400 Diastolic blood mm[Hg]Laney Paula [address]05-13-2022 11:53-0400Heart qrsy066 /minBriannaen Paula [address]05-13-2022 11:53-0400 Respiratory rate18 /minLaney Paula [address]05-13-2022 11:53-0400 Systolic blood lrenknme962 mm[Hg]Laney Paula [address] [place], [place] 2917205-03-2022 19:38-0400 Hourly RoundingMelchor Rivera [facility]05-03-2022 19:38-0400 Promise to ReturnWimoy Kensh [facility]05-03-2022 16:32-0400Body ositjbynisf42.6 [degF]Melchor Kensh [facility]05-03-2022 16:32-0400 Diastolic blood zpztmaxk09 mm[Hg]Melchor Kensh [facility]05-03-2022 16:32-0400Heart rate71 /minWimoy Rivera [facility]05-03-2022 16:32-0400Mean blood mjjgsazf46 mm[Hg]Melchor Rivera [facility]05-03-2022 16:32-0400 Respiratory rate18 /minWillialakesha Rivera [facility]05-03-2022 16:32-4000CqK6% (BldA) [Mass fraction]92 %Melchor Rivera [facility]05-03-2022 16:32-0400 Systolic blood kwveckfs687 mm[Hg]Melchor Rivera [facility]05-03-2022 13:32-0400 Diastolic blood neqqvskj15 mm[Hg]Melchor Rivera [facility]05-03-2022 13:32-0400 Systolic blood mm[Hg]Melchor Rivera [address] [place], [place] 8750805-03-2022 11:09-0400Body wrbzkhqyskn33.42 [degF]Melchor Rivera [facility]05-03-2022 11:09-0400 Diastolic blood dywpmmlh58 mm[Hg]Melchor Rivera [facility]05-03-2022 11:09-0400Heart rate99 /minWilliam Miguel [facility]05-03-2022 11:09-0400Mean blood tblilnwe55 mm[Hg]Melchor Rivera [facility]05-03-2022 11:09-0400 Respiratory rate18 /minWilliam Miguel [address] [place], [place] 8750805-03-2022 11:09-0950LxD5% (BldA) [Mass fraction]96 %Melchor Rivera [facility]05-03-2022 11:09-0400 Systolic blood tthiaoua21 mm[Hg]Melchor Rivera [facility]05-03-2022 11:09-0400Blood Pressure LocationWimoy Rivera [address] [place], [place] 8750805-03-2022 11:09-0400 BP/Pulse Patient PositionWimoy Rivera [address]05-03-2022 07:34-0400Body ykkvapanqgr80.88 [degF]Melchor Rivera [address]05-03-2022 07:34-0400Heart rate95 /minMelchor Rivera [address]05-03-2022 07:34-0400Mean blood facbblwt33 mm[Hg]Melchor Rivera [address]05-03-2022 07:34-0400 Respiratory rate18 /minMelchor Rivera [address]05-03-2022 07:34-2567XmB8% (BldA) [Mass fraction]96 %Melchor Rivera [address] [place], [place] 8750805-03-2022 00:34-0400Blood Pressure LocationWimoy Rivera [address] [place], [place] 8750805-03-2022 00:34-0400 BP/Pulse Patient PositionWimoy Rivera [address] [place], [place] 8750805-03-2022 00:34-0400Mean blood jjwlhzme75 mm[Hg]Melchor Rivera [address] [place], [place] 8750805-02-2022 16:00-0400Blood Pressure LocationWimoy Rivera [address] [place], [place] 8750805-02-2022 16:00-0400 BP/Pulse Patient PositionWimoy Rivera [address] [place], [place] 4098305-02-2022 16:00-0400Mean blood mm[Hg]Melchor Rivera [address] [place], [place] 4098305-02-2022 00:00-0400Mean blood qveoihip21 mm[Hg]Melchor Rivera [address] [place], [place] 4098[address]-28-2022 11:44-0400Body rmrmlpjgeca84.52 [degF]Melchor Rivera [address] [place], [place] 4098[address]-28-2022 07:42-0400Body .7 [degF]Melchor Rivera [address] [place], [place] 4098[address]-28-2022 07:42-0400Heart rate54 /minWilliam Miguel [address] [place], [place] 4098304-27-2022 23:00-0400Body hqbenvckoqt24.88 [degF]Melchor Rivera [address] [place], [place] 4098304-18-2022 20:00-0400 Respiratory rate20 /minWilliam Rivera [address] [place], [place] 4098304-18-2022 18:00-0400 Respiratory rate24 /minWilliam Rivera [address] [place], [place] 8750804-18-2022 17:00-0400 Respiratory rate34 /minWilliam Rivera [address] [place], [place] 4098[address]-12-2022 11:58-0400Body cvqbinhetjy39.16 [degF]Melchor Rivera [address] [place], [place] [address]-12-2022 07:39-0400Body dijzcoxmuyi99.14 [degF]Melchor Rivera [address]04-09-2022 19:30-0400Heart wwxg394 /minWilliam Rivera [address] [place], [place] [address]-09-2022 19:30-0400Heart eiwo671 /minWilliam Miguel [facility]04-09-2022 15:46-0400Heart rate70 /minWilliam Miguel [facility]03-25-2022 09:25-0400Blood Pressure LocationWimoy Rivera [facility]03-25-2022 09:25-0400Body tduqelienhh54.24 [degF]Melchor Rivera [facility]03-25-2022 09:25-0400 Diastolic blood mtlayqnb33 mm[Hg]Melchor Rivera [facility]03-25-2022 09:25-0400Heart rate75 /minWillialakesha Rivera [facility]03-25-2022 09:25-0400 Systolic blood yojcslvx833 mm[Hg]Melchor Kensh [facility] Encounters Encounter DateEncounter TypeCare ProviderFacilityStart: 01-14-2025 End: 51-23-4133Zeelep-up encounterMichaejie Ge DO Work Phone: [facility] - SurgeryComment on above:Surgical PathologyStart: 01-13-2025 End: 94-35-5923Luzabcqlx department patient visitPAUL R WALKERWadsworth-Rittman Hospital HospitalStart: 01-09-2025 End: 20-46-6733tbbphrqqlqGDBAFZE M ASIFProMedMarietta Memorial Hospital HospitalStart: 01-06-2025 End: 60-16-1351bxrqcbzxgzMMHWDPA PROVIDERMercy Health St. Anne Hospitaltart: 01-04-2025 End: 26-38-2205Jnlnli Ras ROSAS Work Phone: [facility] Internal MedicineComment on above:JOSÉ MIGUEL (acute kidney injury) (Primary Dx)Start: 01-04-2025 End: 40-30-5074Jaskuxylhc and management of inpatientEliezer Truong MD Work Phone: [facility] Care Comment on above:Vomiting, unspecified vomiting type, unspecified whether nausea present (Primary Dx); Ileus ([facility]); JOSÉ MIGUEL (acute kidney injury); Nausea and vomiting, unspecified vomiting typeStart: 01-03-2025 End: 12-08-4246Qrbgutrko department patient visitFlower Hospitaltart: 12-29-2024 End: 97-50-4870Gkpqnflnkf and management of inpatientFlower Hospitaltart: 12-18-2024 End: 73-20-9840hmrelzhzoxOpbgnt X OrzechFacility:EU BellevueStart: 12-18-2024 End: 27-56-5905Fxypane encounter procedureAurora X Orzech [facility] start: 12-17-2024 End: 69-11-9073obdkpaayxnCJBBQ E LISDignity Health St. Joseph's Hospital and Medical Centeredu [facility] HospitalStart: 12-17-2024 End: 73-51-3208Mlerghviym hospital visit by physicianCarson Dior MD Work Phone: [facility] LABStart: 74-32-9871kfqfmmhtrb JAMES EDWARD LISIFacility:[facility] HospitalStart: 12-11-2024 End: 22-55-1479hrdravrqrxAXXLY EDWARD LISIFacility:[facility] Start: 11-12-2024 End: 59-46-3191qdrvvpprlcMGYB R WALKERTuscarawas Hospital HospitalStart: 11-07-2024 End: 84-86-7201mdcjuxkuxkHTPJKOR T MUWayne Hospital HospitalStart: 11-06-2024 End: 13-43-7233lcxnjskuncKwocle X OrzechFacility:EU BellevueStart: 11-06-2024 End: 83-89-1295Tyxxikl encounter procedureAurora Ciro Patrick [facility] start: 10-28-2024 End: 64-53-3515Tslnqe flowsAn Dior MD Work Phone: [facility] FMStart: 10-28-2024 End: 63-29-9475Tfeddf flowsAn Dior MD Work Phone: [facility] FMStart: 10-28-2024 End: 33-48-0938Kdioaa outpatient visit 15 minutesCarson Dior MD Work Phone: [facility] FMComment on above:Partial small bowel obstruction (HCC) (Primary Dx); Urinary retentionStart: 10-28-2024 End: 69-49-1136bojdqwawttZNYN NADERERNot AvailableStart: 10-27-2024 End: 32-77-1800znqrffwlraPXROZB W [facility] HospitalStart: 10-22-2024 End: 93-88-7253Kknlearjf department patient visitSOUT[facility]ep [place] HospitalStart: 10-16-2024 End: 26-94-8079bfedjvpbkwGMMR RE[facility]Start: 10-16-2024 End: 19-62-3399Wmksnsahdp hospital visit by Tad Dior MD Work Phone: [facility] LABStart: 10-15-2024 End: 20-80-0979kpybweqogfLPNP REJ[facility] HospitalStart: 10-15-2024 End: 72-68-6043Vddtpmlimm hospital visit by Tad Dior MD Work Phone: [facility] LABStart: 10-14-2024 End: 71-77-5335Ijfuhjdomf and management of inpatientDian Randall MD Work Phone: [facility] Comment on above:Small bowel obstruction (CMS-HCC) (Primary Dx); Urinary retentionStart: 10-11-2024 End: 54-62-2172Qreyfaope encounterGeorevangelistana ReynoldsProWayne Healthcare Main Campusca Call CenterComment on above:no page sentStart: 10-10-2024 End: 50-74-4186Enqzihoxkb and management of inpatientLEONELA Weeks LAWRENCEMemorial [facility] System HospitalStart: 10-09-2024 End: 37-02-7415Xeyzqvpuz department patient visitJEFFERSON DAVIS COMMUN[facility] HOSPITALSALOUK Healthcaretart: 10-09-2024 End: 55-73-4547Zjktnhdqc encounterSharon MeirNorth Baldwin Infirmaryca Call CenterComment on above:Consult (Bowel obstruction)Start: 10-09-2024 End: 71-71-4773Twhvyxtni department patient visitSOUT[facility] REJI [facility] HospitalStart: 09-10-2024 End: 89-60-1616Pxckah Benita Dior MD Work Phone: [facility] CW FMStart: 09-10-2024 End: 97-68-4488Uaejcw Benita Dior MD Work Phone: [facility] FMStart: 09-10-2024 End: 12-26-8521Wvdyxu outpatient visit 15 minutesCarson Dior MD Work Phone: noms [facility] FMComment on above:Partial small bowel obstruction (HCC) (Primary Dx)Start: 09-10-2024 End: 67-24-1768djccdqjshfTLNA NADERERNot AvailableStart: 08-18-2024 End: 55-66-0252Thijnnqzyc and management of inpatientSjie Burciaga MD Work Phone: mthz [facility] CALIFORNIAU MED SURGComment on above:SBO (small bowel obstruction) (HCC) (Primary Dx); Ileitis; Complicated UTI (urinary tract infection); Sinus tachycardia; Abnormal ECG; Small bowel obstruction (HCC); Pneumatosis intestinalis; Seizure disorder (HCC); Dysphagia, unspecified type; S/P placement of VNS (vagus nerve stimulation) device; Intellectual disability; AFTAB (obstructive sleep apnea); MR (mental retardation), severeStart: 08-06-2024 End: 05-48-3725Ijerbn Benita Dior MD Work Phone: noms CWM FMStart: 08-06-2024 End: 70-77-5650Eitfdh flowsheetCarson Dior MD Work Phone: NOFL CWM FMStart: 08-06-2024 End: 82-42-2820Wqodqq outpatient visit 15 minutesCarson Dior MD Work Phone: noms CWM FMComment on above:E. coli UTI (urinary tract infection) (Primary Dx); Seizure disorder (CMS/HCC)Start: 08-06-2024 End: 01-34-6891ruvbbtxezvAVWO NADERERNot AvailableStart: 07-21-2024 End: 20-44-0233fxjkkcmvkzRRCasa CASTANONFacility:EU BellevueStart: 07-21-2024 End: 66-83-9589Khopfsb encounter procedureELSIE CASTANON [facility] start: 07-18-2024 End: 28-85-4870Jnkzhvrpx Result EncounterGeneric External Data ProviderNOMS External Department UnsolicitedStart: 07-18-2024 End: 46-92-7525Gsjbnhdsb Result EncounterGeneric External Data ProviderNOMS External Department UnsolicitedStart: 07-14-2024 End: 93-32-6008Mkwcudehb Result EncounterGeneric External Data ProviderNOMS External Department UnsolicitedStart: 07-14-2024 End: 63-64-2765Cshxmtwum Result EncounterGeneric External Data ProviderNOMS External Department UnsolicitedStart: 07-14-2024 End: 28-90-2917Ybphxnleze and management of inpatientLoki Lara MD Work Phone: MTHZ [facility] MED SURGComment on above:Acute cystitis without hematuria (Primary Dx); Diarrhea, unspecified type; Partial small bowel obstruction (HCC)Start: 07-01-2024 End: 10-93-4527Glwxnf outpatient visit 25 minutesNicole Kayleigh DO Work Phone: ana BELLEVUEComment on above:Localization-related (focal) (partial) symptomatic epilepsy and epileptic syndromes with complex par tial seizures, not intractable, without status epilepticus (Primary Dx); Seizure (CMS/HCC); Weakness; Debility; Developmental delayStart: 07-01-2024 End: 31-61-3654xemnpynfbnAAZHUY DANNERNot AvailableStart: 06-30-2024 End: 34-05-2573Zbzjxz flowsheetLisa Aichholz PRODUCTION WOOD CRAFTSMAN Work Phone: NOMS CWM FMStart: 06-30-2024 End: 34-19-1117Vzkocf flowsheetLisa Aichholz PRODUCTION WOOD CRAFTSMAN Work Phone: NOMS CWM FMStart: 06-30-2024 End: 28-42-2974Ymfqih outpatient visit 25 minutesLisa Aichholz PRODUCTION WOOD CRAFTSMAN Work Phone: noms CW FMComment on above:SBO (small bowel obstruction) (CMS/HCC) (Primary Dx); Seizure disorder (CMS/HCC); Developmental delay; Chronic constipation; Moderate intellectual disability (CMS/HCC)Start: 06-30-2024 End: 63-93-5915xsilvmfzufWGVJ AICHHOLZNot AvailableStart: 06-16-2024 End: 59-68-6569Luccqnjxa Result EncounterGeneric External Data ProviderNOMS External Department UnsolicitedStart: 06-16-2024 End: 05-75-2131Nnusowtty Result EncounterGeneric External Data ProviderNOMS External Department UnsolicitedStart: 06-16-2024 End: 47-73-1546Fwyaocxubv and management of inpatientAnthony Cabrera MD Work Phone: mthz [facility] MED SURGComment on above:SBO (small bowel obstruction) (HCC) (Primary Dx)Start: 05-22-2024 End: 32-05-3613dhgssqoebjJCINC EDWARD LISIFacility:[facility] Start: 05-22-2024 End: 04-80-5591Hshipk outpatient visit 15 minutesUma Clark MD Work Phone: GastroenterologyComment on above:Constipation, unspecified constipation type (Primary Dx)Start: 05-05-2024 End: 67-82-9228Rkqvpdkyi encounterEmma Luz NP Work Phone: ana BELLEVUEStart: 04-30-2024 End: 04-21-9973Xxubxvybn Result EncounterNicole Kayleigh DO Work Phone: noms External Department UnsolicitedStart: 04-30-2024 End: 99-83-9134Gvkidbppi Result EncounterNicole Kayleigh DO Work Phone: noms External Department UnsolicitedStart: 04-30-2024 End: 91-31-6995ncswkwnbwvZGYDPU DANNERPremier Health [facility] HospitalStart: 04-30-2024 End: 13-41-8338Kxrwrhkseo hospital visit by physicianCarson Dior MD Work Phone: [facility] LABStart: 04-28-2024 End: 08-24-9308OekhhzFnrjcen Guerra MAANA NORWALKComment on above:Seizure (CMS/HCC)Start: 04-19-2024 End: 95-73-4047Qbhkyofrhf and management of inpatientMelkanchan Washington MD Work Phone: mthz [facility]IA[facility] MED SURGComment on above:Intestinal obstruction, unspecified cause, unspecified whether partial or complete (HCC) (Primary Dx)Start: 04-14-2024 End: 70-65-3256Oantpy Benita Dior MD Work Phone: noms CW FMStart: 04-14-2024 End: 07-19-3916Fgfmmx Benita Dior MD Work Phone: noms CW FMStart: 04-14-2024 End: 53-47-7338Xuesyi outpatient visit 25 minutesCarson Dior MD Work Phone: noms CWM FMComment on above:Moderate intellectual disability (CMS/HCC) (Primary Dx); Cerebral palsy, unspecified type (CMS/HCC); Seizure disorder (CMS/HCC); Chronic constipation; BPH without obstruction/lower urinary tract symptoms; Limitation due to disability; Hemiplegia, unspecified affecting unspecified side (CMS/HCC)Start: 04-14-2024 End: 56-05-4943arswxjjncwHGWB NADERERNot AvailableStart: 03-28-2024 End: 03-36-1487YqvfebNvfr Naderer MD Work Phone: noms CWM FMComment on above:Seizure (CMS/HCC)Start: 03-12-2024 End: 70-09-3286uefrkfhuigMLMNYR MALAIKAChildren's Hospital of [facility] HospitalStart: 03-12-2024 End: 90-57-0886Uzcduljutw hospital visit by Tad Dior MD Work Phone: mthz LaboratoryStart: 02-29-2024 End: 26-40-0684daffdfoevlMHXYWK [facility] HospitalStart: 02-29-2024 End: 18-19-9712Sittxqteyl hospital visit by Tad Dior MD Work Phone: mthz LaboratoryStart: 02-22-2024 End: 03-79-5228hhktolnptyAWKTXQ [facility] HospitalStart: 02-22-2024 End: 43-30-7361Uafpeutuqz hospital visit by Tad Dior MD Work Phone: mthz LaboratoryStart: 02-20-2024 End: 39-72-5733mcvqoyogcqUNPTND [facility] HospitalStart: 02-20-2024 End: 39-01-7185Wiirfgncve hospital visit by Tad Dior MD Work Phone: mthz LaboratoryStart: 02-19-2024 End: 86-30-5743Xvbame Benita Dior MD Work Phone: noms CWM FMStart: 02-19-2024 End: 52-92-2808Dwkxqg Benita Dior MD Work Phone: noms CWM FMStart: 02-19-2024 End: 70-24-7517Xmxvtgqqnaof care manage srvc 14 day dischargeCarson Dior MD Work Phone: noms CWM FMComment on above:Small bowel obstruction (CMS/HCC) (Primary Dx); Seizure disorder (CMS/HCC); Need for assistance with personal care; Moderate intellectual disability (CMS/HCC); Limitation due to disabilityStart: 02-19-2024 End: 35-24-0317uoqillabdjILEV NADERERNot AvailableStart: 02-06-2024 End: 68-67-1752Hmjsofzxp encounterNicroney [facility]LLANAH[facility]ET[facility] Start: 02-02-2024 End: 19-03-9425Cpvvfqslrd and management of inpatientTylee Gates MD Work Phone: mthz [facility] MED SURGComment on above:Abdominal distention (Primary Dx)Start: 01-29-2024 End: 23-62-0823rxwvstqydeWSHMJLE PROVIDERFacility:METROHealthStart: 01-29-2024 End: 66-64-6266Ksriemz encounter Marcela Starks [facility] Work Phone (unformatted): [phone] DentistryStart: 01-25-2024 End: 91-73-2568Ptbgrcnbg encounterTo Be AssignedMetProMedica Flower Hospital DentistryComment on above:DentalStart: 01-25-2024 End: 45-42-8838Rwkbddj encounter procedureAftab Hansen DDS Work Phone: [facility] DentistryComment on above:Arrived Start: 01-25-2024 End: 91-90-9798joycaouffbAAHBLK FERMIN VALERIANOFacility:METROHealthStart: 01-22-2024 End: 83-47-7536qsbazlezlxPAELVB DANNERNot AvailableStart: 01-22-2024 End: 38-69-3416Tatoyo outpatient visit 25 minutesNicole Kayleigh DO Work Phone: noms [facility] ROUTEComment on above: Localization-related (focal) (partial) symptomatic epilepsy and epileptic syndromes with complex partial seizures, not intractable, without status epilepticus (CMS/HCC) (Primary Dx); Developmental delay; 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, unspecified cerebrovascular disease type, unspecified hemiplegia type, unspecified laterality (CMS/HCC); Cognitive deficitsStart: 01-22-2024 End: 73-75-5679Hzkokm flowsheetNicole Kayleigh DO Work Phone: noms [place] R[address]TEStart: 01-22-2024 End: 69-82-7481Zylowu flowsheetNicole Kayleigh DO Work Phone: noms [facility] ROUTEStart: 12-19-2023 End: 68-08-1681UdhmyvAgtbczsf Riedy [facility] NEUROLOGYComment on above:Seizure (CMS/HCC)Start: 12-18-2023 End: 04-63-2503Wwifsyo encounter procedureUMA ALICEAUniversity [facility]als [facility] Start: 11-22-2023 End: 19-72-5084Zlzokhs encounter procedureUma Clark MD Work Phone: GastroenterologyComment on above:Cough, unspecified type (Primary Dx); History of small bowel obstructionStart: 10-18-2023 End: 05-87-7565Rrxohjs encounter procedureVictortammi Rivera DDS Work Phone: [facility] DentistryComment on above:Arrived Start: 81-73-9109hsigfypyzwASUWUBQW NAREN RIVERAFacility:METROHealthStart: 07-31-2023 End: 86-65-1596Vkpdhfl encounter procedureJENNCARLOS CASTANON [facility] start: 07-24-2023 End: 80-16-0952Bllpkkkyu Result EncounterGeneric External Data ProviderNOMS External Department UnsolicitedStart: 07-24-2023 End: 94-71-2969Ewzvmpoev Result EncounterGeneric External Data ProviderNOMS External Department UnsolicitedStart: 07-23-2023 End: 96-35-8923Ojrvpigpj Result EncounterGeneric External Data ProviderNOMS External Department UnsolicitedStart: 07-23-2023 End: 12-18-2625Qmcabaqmw Result EncounterGeneric External Data ProviderNOMS External Department UnsolicitedStart: 07-52-4088Dkbvqdkdp encounterLorradha Christine RN Work Phone: General SurgeryStart: 06-21-2023 End: 78-88-2555Njxzxdfmia and management of inpatientMARC [facility] Hospitaltart: 06-20-2023 End: 43-54-4337Zvtyvlfimt and management of inpatientReva Galindo MD Work Phone: [place] Med SurgStart: 06-11-2023 End: 87-94-8355Zcinrakxin and management of inpatientSfaridahen Marek Gill DO Work Phone: mthz [facility] MED SURGComment on above:Ileus (HCC) (Primary Dx); Partial small bowel obstruction (HCC); Intractable nausea and vomiting; Pneumatosis intestinalis; Sepsis, due to unspecified organism, unspecified whether acute organ dysfunction present (HCC); JOSÉ MIGUEL (acute kidney injury) (HCC); Seizure-like activity (HCC); Seizure disorder (HCC); Nausea and vomiting, unspecified vomiting type; Elevated international normalized ratio (INR); Dysphagia, unspecified type; S/P placement of VNS (vagus nerve stimulation) device; Intellectual disability; Nonintractable epilepsy without status epilepticus, unspecified epilepsy type (HCC); AFTAB (obstructive sleep apnea); SBO (small bowel obstruction) (HCC); MR (mental retardation), severe; Seizures (HCC) Chronic; Small bowel obstruction (HCC)Start: 77-57-7912Dxwxr abstractJuliette Wolfe MD Work Phone: [facility] CardiologyStart: 05-01-2023 End: 06-61-1234Syqcncp encounter procedureJEJOANNE CASTANON [facility] start: 05-01-2023 End: 25-56-6036Lbvtbyzoky and management of inpatientMARC [facility] Hospitaltart: 04-25-2023 End: 00-73-5230Flibmmdidr and management of inpatientSANDERRELL BARRChillicothe VA Medical Centertart: 04-24-2023 End: 49-29-2572Mnznwdinly and management of inpatientJeffrey P Blood DO Work Phone: stAZ Progressive CareStart: 04-08-2023 End: 72-15-6787Whezodpzde and management of inpatientDeneen Jeffrey MD Work Phone: [phone] AcuteStart: 02-16-2023 End: 62-16-7073Uovytds encounter procedureYasmani CAMARA [facility] start: 02-10-2023 End: 57-22-6174Wjcniebigm and management of inpatientMARC [facility] Hospitaltart: 11-08-2022 End: 90-46-0863FajtwyhhtviLavmvgo Taylor Walsh [facility] Start: 09-02-2022 End: 51-22-3009Kjwutohznm and management of inpatientSjie Burciaga MD Work Phone: mthz [facility] MED SURGComment on above:Small bowel obstruction (HCC) (Primary Dx)Start: 06-23-2022 End: 44-71-5620Nntdzdjqyt and management of inpatientKari Sales [facility] Start: 06-21-2022 End: 46-04-5688Qbmxmifgei and management of inpatientMark Aron Chacon MD Work Phone: mthz [facility] MED SURGComment on above:SBO (small bowel obstruction) (HCC) (Primary Dx)Start: 05-08-2022 End: 28-57-6702Afjkrgsxvf and management of inpatientJustin Andes DO Work Phone: mthz [facility] MED SURGComment on above:Small bowel obstruction (HCC) (Primary Dx); Acute kidney injury (HCC); History of seizure disorderStart: 05-05-2022 End: 04-22-4595Gzgowczyvf hospital visit by physicianSecret Escapesfrank [employer] Work Phone: mthz LaboratoryStart: 03-22-2022 End: 56-77-0913Omdxxhckes hospital visit by physicianRevivn Work Phone: mthz LaboratoryStart: 02-08-2022 End: 81-85-3125Vjbkfgfugu hospital visit by physicianRevivn Work Phone: mthz LaboratoryStart: 11-09-2021 End: 11-65-5134Tbheovosmz hospital visit by physicianSecret Escapesrfank [employer] Work Phone: mthz LaboratoryStart: 10-19-2021 End: 50-42-2607Nppfvvgayr hospital visit by physicianSecret Escapesfrank [employer] Work Phone: mthz LaboratoryStart: 10-04-2021 End: 56-87-1077spicqsdfdpZV CARSON A NADERERFacility:G5Atqag: 09-10-2021 End: 31-94-1991Bkuavpeqm department patient visitMattFirelands Regional Medical Center [facility] EDComment on above:Seizure (HCC) (Primary Dx)Start: 09-01-2021 End: 72-39-9326Hpagvgz encounter procedureMelchor Rivera [facility] Start: 08-12-2021 End: 92-47-4407Ydprthv encounter procedureMelchor Rivera [facility] Start: 07-29-2021 End: 90-67-7399Fxcauxz encounter procedureMelchor Rivera [facility] Start: 07-15-2021 End: 36-67-7415Bqehfik encounter procedureBriannakojo Hoyose [facility] Start: 07-07-2021 End: 37-94-9375Tjt-admission assessmentLaney Mitchell [facility] Start: 06-11-2021 End: 94-46-0361Egbhkahrwm and management of inpatientMelchor Rivera [facility] Start: 06-11-2021 End: 26-34-6927ugtgmjzqiqII CARSON A NADERERFacility:W5Zsblk: 05-27-2021 End: 40-97-6620Sgjwctx encounter procedureMelchor Rivera [facility] Start: 03-30-2021 End: 86-42-1737Sryunknlvo hospital visit by physicianTyra Robles DO Work Phone: mthz LaboratoryStart: 03-11-2021 End: 35-32-5109Cmkgkdlszq hospital visit by physicianTyra Robles DO Work Phone: mthz LaboratoryStart: 02-28-2021 End: 64-03-4496vvpofpokgsHI CARSON Perez NADERERFacility:A1[place]ubak: 08-18-2020 End: 78-19-5030Cnotqhbtus hospital visit by Umer Robles DO Work Phone: mthz LaboratoryStart: 12-31-2019 End: 96-82-9198Fgksavgbcs hospital visit by Umer [facility] Start: 12-05-2018 End: 96-02-8052Zyhyizdngh hospital visit by Umer [facility] Start: 33-19-6721Jpycxws encounter statusTaylblayne Eastman MD Work Phone: [facility] SystemStart: 10-31-2018 End: 66-36-9880Umuukskcyf hospital visit by Umer [facility] Start: 30-79-1641Smrhdsc encounter procedureTaylblayne Eastman MD Work Phone: [facility]tart: 10-11-2016 End: 87-20-1937ZqjrmctajzGFZFFRU SAYONFacility:[facility] SYSTEMSStart: 41-57-7996NbqklpxuswEDXLCDL SAYONFacility:[facility] Procedures DateProcedureProcedure DetailPerforming ClinicianStart: 66-62-0328CDTFBIM Liliana Ge MD Work Phone: Start: 19-16-8668SVUQENS Liliana Ge MD Work Phone: Start: 17-82-0822Qmripgmyhhcjj metabolic panelTaeler Apolinar PROGRAM DIR-PATTERN PAINTER Work Phone: Start: 34-30-9521Xsflqbssnjezx metabolic panelTaeler Apolinar PROGRAM DIR-PATTERN PAINTER Work Phone: Start: 39-07-8313Qzjgwozip serum plasma/whole blood Nhung Hager PROGRAM DIR-PATTERN PAINTER Work Phone: Start: 37-20-3687WZHQACIXH Maggi Ge DO Work Phone: Start: 01-06-2025 End: 99-03-2090Rsyihkemdjtgnlxpefgurcyzda transoral diagnosticMichael E Grillis DO Work Phone: Start: 88-96-5588JajweijylodxcnfptphhxfdmqiYjkpdkd E Grillis DO Work Phone: Start: 44-28-1266Kfbddxxknujfg metabolic panelTaeler Jiang [facility] Work Phone: Start: 82-60-5816Brjqe dip stick/tablet reagent auto microscopyRachel Michael [facility] Work Phone: Start: 68-25-3804Ythik metabolic panel calcium total Shruthi Rodriguez [facility] Work Phone: Start: 01-44-8293Cewjukhywpwfy metabolic panelTaeler Apolinar [facility] Work Phone: Start: 68-96-4066Vouka-dna/rna gi pthgn multiplex probe tq 12-08Taeler [facility] Work Phone: Start: 59-56-8420Mnv agent det nucleic acid clostridium amp probeTaeler [facility] Work Phone: Start: 86-84-4468Eslgnegoma exam abdomen 1 Shelbie Truong MD Work Phone: Start: 09-19-8503Laarunawvajeb metabolic panelRachel D Lucio [facility] Work Phone: start: 64-57-9675Qkrqmspich exam complete acute abdomen seriesRachel D Lucio [facility] Work Phone: start: 20-72-9007CP ED CRITICAL CARERachel [place] Lucio [facility] Work Phone: start: 81-14-2760Qxmki-dna/rna gi pthgn multiplex probe tq 12-25Uma Clark MD Work Phone: start: 29-57-0590Cjs agent det nucleic acid clostridium amp Ginny Clark MD Work Phone: start: 22-44-9320Ovrtd of Shukri Guido MD Work Phone: Start: 91-46-8270Fzvgdvvcqkbrj metabolic panelRachel Ragle PROGRAM DIR-PATTERN PAINTER Work Phone: Start: 02-44-5926Irocvithhgsci metabolic panelRachel Ragle PROGRAM DIR-PATTERN PAINTER Work Phone: Start: 83-88-9620Lwuhi of Shukri Guido MD Work Phone: Start: 89-92-6086Qdefclnwzi exam small int single contrast studyMichael E Grillis DO Work Phone: Start: 67-52-4581Lohddvurgytxu metabolic panelRachel Ragle PROGRAM DIR-PATTERN PAINTER Work Phone: Start: 24-36-5112Tukei count complete auto&auto difrntl wbcRachel Ragle PROGRAM DIR-PATTERN PAINTER Work Phone: Start: 14-38-3043HHDHR TUBESSanam Guido MD Work Phone: Start: 87-56-5161JYXHF TUBES PST Kimmy Guido MD Work Phone: Start: 59-22-7629Enratkifctnxf metabolic panelRachel Ragle PROGRAM DIR-PATTERN PAINTER Work Phone: Start: 92-93-4313Ffdfgmxvyd exam abdomen 1 viewMichael E Grillis DO Work Phone: Start: 15-00-5842Mgtruuzriv exam chest 2 viewsMichael E Grillis DO Work Phone: Start: 96-84-0956Baelptmfxdtka metabolic panelRachel Ragle PROGRAM DIR-PATTERN PAINTER Work Phone: Start: 79-10-2517Gitjauiaci exam abdomen 1 Keri Randall MD Work Phone: Start: 68-86-5211Ndhfzqyjttrtl metabolic panelDian Randall MD Work Phone: Start: 76-79-5422Ng abdomen & pelvis w/contrast materialDian Randall MD Work Phone: Start: 44-82-9528Pqmaluzkcvf timePquintonl Rick Randall MD Work Phone: Start: 38-00-2381Cmgqiyotpx exam abdomen 1 viewMegan Jie Moriah PROGRAM DIR - PATTERN PAINTER Work Phone: Start: 21-59-5896Kzguno ecg 1-3 leads w/interpretation & reportUnknown Provider ResultStart: 56-21-6606RERGK METABOLIC PANEL W/ REFLEX TO MG FOR LOW KStefan Gualberto MOELLER Work Phone: Start: 06-36-0113Ohfsn count complete auto&auto difrntl wbcStefan Gualberto MOELLER Work Phone: Start: 93-72-1540Mjfdot ecg 1-3 leads w/interpretation & reportUnknown Provider ResultStart: 57-66-9421Mkgq tthrc r-t 2d w/wom-mode compl spec&colr Jerad Cox MD Work Phone: Start: 62-15-8260Mrpywlpdst exam chest single view Yennifer Jie Moriah PROGRAM DIR - PATTERN PAINTER Work Phone: Start: 44-96-7412Jpfsaauuqv exam abdomen 1 viewMeajith Ceron Moriah PROGRAM DIR - PATTERN PAINTER Work Phone: Start: 29-13-5728ZREUK METABOLIC PANEL W/ REFLEX TO MG FOR LOW KStefan Gualberto MOELLER Work Phone: Start: 35-09-7734Lulwaplyrlw peptideAbdirizak Cox MD Work Phone: Start: 08-20-2024 End: 21-66-9055Oam routine ecg w/least 12 lds i&r onlyAbdirizak Cox MD Work Phone: Start: 27-67-2558Wtijpjnnzi exam abdomen 1 viewYennifer Major PROGRAM DIR - PATTERN PAINTER Work Phone: Start: 68-10-8898Efkfx of troponin quantitativeYennifer Major PROGRAM DIR - PATTERN PAINTER Work Phone: Start: 68-75-5298DHIHZ METABOLIC PANEL W/ REFLEX TO MG FOR LOW KStefan Gualberto MOELLER Work Phone: Start: 08-19-2024 End: 83-31-0601Iks routine ecg w/least 12 lds i&r onlyYennifer Major PROGRAM DIR - PATTERN PAINTER Work Phone: Start: 29-68-5491Djcmd of troponin quantitativeYennifer Major PROGRAM DIR - PATTERN PAINTER Work Phone: Start: 08-18-2024 End: 22-93-5929Vxa routine ecg w/least 12 lds i&r onlyLyla Burciaga MD Work Phone: Start: 57-73-7534Lqsqilkdzn exam abdomen 1 viewJames P Watson PA-C Work Phone: Start: 13-26-9965Zg abdomen & pelvis w/contrast materialJames P Watson PA-C Work Phone: Start: 78-51-6274Lexes dip stick/tablet rgnt auto w/o microscopyJames P Watson PA-C Work Phone: Start: 67-58-5624Bzvtcpnaqycjl metabolic panelJames P Watson PA-C Work Phone: Start: 43-68-0743DORG PSA, DIAGNOSTICGeneric External Data ProviderStart: 53-77-7597ZEMGX METABOLIC PANEL W/ REFLEX TO MG FOR LOW K Dorota Woodson PROGRAM DIR - PATTERN PAINTER Work Phone: Start: 10-16-1110Eeebp count complete auto&auto difrntl wbcShlg Woodson PROGRAM DIR - PATTERN PAINTER Work Phone: Start: 17-55-1442PLWWD METABOLIC PANEL W/ REFLEX TO MG FOR LOW KShirvish Woodson PROGRAM DIR - PATTERN PAINTER Work Phone: Start: 20-27-3676Vobls count complete auto&auto difrntl wbcShlg Woodson PROGRAM DIR - PATTERN PAINTER Work Phone: Start: 02-52-2425Defdmfleqo exam abdomen 1 viewZachary D Sawant DO Work Phone: Start: 31-83-4939Idk/lipids feces qualitativeThais Dara Lara MD Work Phone: Start: 17-44-9701Knh agent det nucleic acid clostridium amp probeThaijudith Lara MD Work Phone: Start: 07-14-2024 End: 84-78-5388Esggebc bacterial quanttative colony count urineThaijudith Lara MD Work Phone: Start: 13-65-3617GYKD CULT,URINEGeneric External Data ProviderStart: 70-20-1287Btpvl dip stick/tablet rgnt auto w/o microscopyThaijudith Lara MD Work Phone: Start: 62-42-6973Iu abdomen & pelvis w/contrast materialThais Dara Lara MD Work Phone: Start: 47-78-3194POVHPDK, BLOOD 1Thais Dara Lara MD Work Phone: Start: 20-28-1063Tunuxuxqfxufs metabolic panelThais Dara Lara MD Work Phone: Start: 39-13-2912Emow ismael implt npgt phys/qhp w/o programmingNicole Kayleigh DO Work Phone: Start: 47-87-5814Copkx count complete auto&auto difrntl wbcChristopher [place] Cornejo MD Work Phone: Start: 89-96-4107Bdbyycbbev exam abdomen 1 viewZachary [place] Sawant DO Work Phone: Start: 15-44-8816Nxjzi count complete auto&auto difrntl wbcChristopher [place] Cornejo MD Work Phone: Start: 61-74-5417Epzlv of troponin quantitativeLizz Modi MD Work Phone: Start: 92-91-7654Vow routine ecg w/least 12 lds i&r onlyLizz Modi MD Work Phone: Start: 20-39-8918Vmqcrrchcc exam chest single view Ynaa Cornejo MD Work Phone: Start: 10-24-8023Kjlkq of troponin quantitative Yana Cornejo MD Work Phone: Start: 06-16-2024 End: 03-28-2389Bbi routine ecg w/least 12 lds i&r onlyChristopher [place] Cornejo MD Work Phone: Start: 67-89-1059Nwmtksbotp microscopic onlyRorsheba Cabrera MD Work Phone: Start: 97-74-9559Paxih dip stick/tablet rgnt auto w/o microscopyRorsheba Cabrera MD Work Phone: Start: 81-15-3669Rcorfzdbbs exam abdomen 1 viewRorsheba Cabrera MD Work Phone: Start: 27-23-1736No abdomen & pelvis w/contrast materialRorsheba Cabrera MD Work Phone: Start: 23-71-4290Neufw metabolic panel calcium total Anthonysheba Cabrera MD Work Phone: Start: 33-29-3836PPKVTTL, BLOOD 1Christirina Cornejo MD Work Phone: Start: 29-33-6405Mldddwl function panelRorsheba Cabrera MD Work Phone: Start: 41-57-7238RLEMHLZ, SEPSISRorsheba Cabrera MD Work Phone: Start: 36-65-0603INKM CULT,BLOODGeneric External Data ProviderStart: 94-98-1309Yvbtilczertuj metabolic panelNicole Kayleigh DO Work Phone: Start: 96-85-7956VYZK CBC WITH DIFFNicole Kayleigh DO Work Phone: Start: 00-78-0321Miiyhkxdkncf drug not elsewhere specifiedNicole Kayleigh DO Work Phone: Start: 99-48-5670IYEKZ METABOLIC PANEL W/ REFLEX TO MG FOR LOW KChristopher D Janice MOELLER Work Phone: Start: 63-67-6566Ljisi count complete auto&auto difrntl wbcChristopher [place] Cornejo MD Work Phone: Start: 11-24-9534Sqwtwl ecg 1-3 leads w/interpretation & reportUnknown Provider ResultStart: 43-17-1831Sswklm ecg 1-3 leads w/interpretation & reportUnknown Provider ResultStart: 44-03-9177HFSXZ METABOLIC PANEL W/ REFLEX TO MG FOR LOW KChristopher D Janice MOELLER Work Phone: Start: 29-51-0899Strxp count complete auto&auto difrntl wbcChristopher Dayton Cornejo MD Work Phone: Start: 65-71-7127LQGZM METABOLIC PANEL W/ REFLEX TO MG FOR LOW KChristopher D Janice MOELLER Work Phone: Start: 74-94-1083Yonpw count complete auto&auto difrntl wbcChristopher Dayton Cornejo MD Work Phone: Start: 04-21-2024 End: 57-15-6521Ktmude ecg 1-3 leads w/interpretation & reportUnknown Provider ResultStart: 04-20-2024 End: 54-41-1885Ejawai ecg 1-3 leads w/interpretation & reportUnknown Provider ResultStart: 91-08-7549JWNWO METABOLIC PANEL W/ REFLEX TO MG FOR LOW K Christirina Cornejo MD Work Phone: Start: 89-29-4221Swerw count complete auto&auto difrntl wbcChristopher Dayton Cornejo MD Work Phone: Start: 92-85-2083Hlx routine ecg w/least 12 lds i&r onlyChristopher Dayton Cornejo MD Work Phone: Start: 39-16-6218Mvmmgtiirz exam abdomen 1 viewPaty Washington MD Work Phone: start: 10-90-7520Lm abdomen & pelvis w/contrast materialPaty Washington MD Work Phone: start: 79-49-7070Rwwsyrqzhzdwn metabolic panelPaty Washington MD Work Phone: start: 98-37-8289Budugsoomt exam chest single view Paty Washington MD Work Phone: start: 67-27-5013PTWYF METABOLIC PANEL W/ REFLEX TO MG FOR LOW KChristopher D Janice MOELLER Work Phone: Start: 47-91-1032Fpkci count complete auto&auto difrntl wbcChristopher Dayton Cornejo MD Work Phone: Start: 00-19-1544Rbkevarhyu exam small int single contrast studyShirvish Woodson PROGRAM DIR - PATTERN PAINTER Work Phone: Start: 99-29-8449FEUHP METABOLIC PANEL W/ REFLEX TO MG FOR LOW KChristopher D Janice MOELLER Work Phone: Start: 67-72-9531Dvmoe count complete auto&auto difrntl wbcChristopher Dayton Cornejo MD Work Phone: Start: 11-78-0354Tydzkxfvra exam abdomen 1 viewShiwilber Woodson PROGRAM DIR - PATTERN PAINTER Work Phone: Start: 93-67-4733Dqefooinbj exam abdomen 2 views Ilana Clayton DO Work Phone: Start: 77-27-1584RZSIR METABOLIC PANEL W/ REFLEX TO MG FOR LOW KChristopher D Janice MOELLER Work Phone: Start: 87-95-0476Ekdfo count complete auto&auto difrntl wbcChristopher Dayton Cornejo MD Work Phone: Start: 19-14-9080Rdarbpqlym exam chest single view Yana Cornejo MD Work Phone: Start: 05-33-9036Alrbstyqbz exam abdomen 1 viewBeetienne Clayton DO Work Phone: Start: 81-81-3640Bujahrazbm exam chest single view Yana Cornejo MD Work Phone: Start: 24-33-9783WTXLO METABOLIC PANEL W/ REFLEX TO MG FOR LOW KChristopher D Janice MOELLER Work Phone: Start: 40-73-2541Taesf count complete auto&auto difrntl wbcChristopher Dayton Cornejo MD Work Phone: Start: 50-81-2480Uzi routine ecg w/least 12 lds i&r onlyChristopher Dayton Cornejo MD Work Phone: Start: 49-78-4637NIOVABH Yadira Gates MD Work Phone: Start: 25-49-0155Iusjiyurne exam chest single view Jackson Gates MD Work Phone: Start: 73-43-3588Jtmfrvhlia exam abdomen 1 viewJackson Gates MD Work Phone: Start: 52-16-8386On abdomen & pelvis w/o contrast Alan Gates MD Work Phone: Start: 26-78-2873Rdetk metabolic panel calcium total Jackson Gates MD Work Phone: Start: 18-68-0034Judeefn function panelJackson Gates MD Work Phone: Start: 15-26-6931TK ABDOMEN (2 VIEWS)Generic External Data ProviderStart: 74-69-8985DA ABDOMEN (2 VIEWS)Generic External Data Provider Start: 57-62-4728Hlxltvvevs exam small int single contrast studyJoce Mendoza MD Work Phone: Start: 11-34-0457Eghvm of phosphorus inorganicMohammed Brice MOELLER Work Phone: Start: 67-47-7952Rbiqv of magnesiumStjo-ann Burciaga MD Work Phone: Start: 23-74-1802Cqreh of magnesiumLyla Burciaga MD Work Phone: Start: 35-48-6429Cnihhjppnz exam complete acute abdomen seriesBolivar Quigley MD Work Phone: Start: 17-26-6813Wgxgx count complete auto&auto difrntl wbcLyla Burciaga MD Work Phone: Start: 34-07-1522AQVIFPK, WHOLE BLOODLyla Burciaga MD Work Phone: Start: 15-71-7224Qkbwly ecg 1-3 leads w/interpretation & reportUnknown Provider ResultStart: 01-28-7748Qbexy of lactateMegan L Moriah PROGRAM DIR - PATTERN PAINTER Work Phone: Start: 24-36-4254Wqqagtt bacterial quanttative colony count urineMegan L Moriah PROGRAM DIR - PATTERN PAINTER Work Phone: Start: 31-74-2562Ag abdomen & pelvis w/contrast materialStephen N Swade DO Work Phone: Start: 30-93-1961Pvwpkdj bacterial blood aerobic w/id isolatesStephen N Swade DO Work Phone: Start: 81-26-8112ZHPNTWH, SEPSISStephen N Swade DO Work Phone: Start: 63-04-4343Oczmeihllw exam chest single view Hadley N Swade DO Work Phone: Start: 06-11-2023 End: 29-48-4395Ipm routine ecg w/least 12 lds i&r onlyStephen N Swade DO Work Phone: Start: 12-82-6292Ckiwqoqfpoaml metabolic panelStephen N Swade DO Work Phone: Start: 42-61-0489LKPREND, BLOOD 1Stephen N Swade DO Work Phone: Start: 13-18-3211OCPCIRL, SEPSISStephen N Swade DO Work Phone: Start: 09-57-7712BCMSUZNA CAREStephen N Swade DO Work Phone: Start: 27-32-1717NKQON METABOLIC PANEL W/ REFLEX TO MG FOR LOW KSarah E Sunny DO Work Phone: Start: 71-01-9410Ijoob count complete auto&auto difrntl wbcSarah E Sunny DO Work Phone: Start: 23-85-8426Zqwth count complete auto&auto difrntl wbcStanley J Orlop DO Work Phone: Start: 59-96-6822QAXKB METABOLIC PANEL W/ REFLEX TO MG FOR LOW KSarah E Sunny DO Work Phone: Start: 30-44-5060Mhfghvdylizvwtjgjlqy w/rec awake&asleepSuzan Hadwan DO Work Phone: Start: 15-51-1589Ebwtekicuy exam abdomen 1 viewSarah E Sunny DO Work Phone: Start: 96-93-5020LXAUE METABOLIC PANEL W/ REFLEX TO MG FOR LOW KSarah E Sunny DO Work Phone: Start: 87-98-3115Cccss count complete auto&auto difrntl wbcSarah E Sunny DO Work Phone: Start: 04-25-2023 End: 87-04-9673Tlfzp metabolic panel calcium totalSarah Dhiraj Wicku DO Work Phone: Start: 81-27-6493NRMTSLKComfort DO Work Phone: Start: 25-94-4623Rebkavmlrz exam chest single view Simran Villa PROGRAM DIR - PRODUCTION WOOD CRAFTSMAN Work Phone: Start: 03-34-7893Cfzxwfpupk exam abdomen 1 view Gloria Faust PROGRAM DIR - PATTERN PAINTER Work Phone: [phone]: 21-92-7708Cvhvs metabolic panel calcium total Muhamad Kerry La MD Work Phone: Start: 04-19-2023 End: 65-72-3216Pnqrq metabolic panel calcium totalMuhamad Kerry La MD Work Phone: Start: 23-83-0397Waqqb of magnesiumTaylblayne Eastman MD Work Phone: Start: 40-43-1496Zpedn metabolic panel calcium total Muhamad Kerry La MD Work Phone: Start: 04-17-2023 End: 79-32-3872Lccni metabolic panel calcium totalMuhamad Kerry La MD Work Phone: [phone]: 23-94-6690Bajejne ionizedMuhamad Kerry La MD Work Phone: Start: 32-44-6682Fgcisbwpms exam swallow function contrast studyMuhamad Kerry La MD Work Phone: [phone]: 60-91-9096Aagha metabolic panel calcium total Muhamad Keryr La MD Work Phone: Start: 99-36-9122Zspm assay lacosamideMuhamad Kerry La MD Work Phone: [phone]: 12-16-4509Ggoa screen quantitative levetiracetamMuhamad Kerry La MD Work Phone: [phone]: 96-16-7186Btiph of magnesiumMuhamad Kerry La MD Work Phone: Start: 49-83-1763Svkam metabolic panel calcium total Muhamad Kerry La MD Work Phone: [phone]: 40-96-9265Zdlwg of Scooter La MD Work Phone: Start: 25-95-0714Zhngg metabolic panel calcium total Avivandaad Kerry La MD Work Phone: [phone]: 49-76-7362Fwobcojhvq exam abdomen 1 viewMuvandaad Kerry La MD Work Phone: Start: 50-37-7043Jsnzp count platelet automatedGonzales La MD Work Phone: [phone]: 82-27-6633Wbeqa metabolic panel calcium total Avivandaad Kerry La MD Work Phone: Start: 61-09-9022Gzujk of Hoda Chappell MD Work Phone: Start: 53-59-3181Uhhraxmnff exam chest single view Gonzales La MD Work Phone: Start: 00-03-8672Qywr tthrc r-t 2d w/wom-mode compl spec&colr dLea Lakesha Segal PA-C Work Phone: [phone]: 87-84-5614Oenomzdggy exam swallow function contrast studyGonzales La MD Work Phone: Start: 67-54-8312Krpdp metabolic panel calcium total Muhamad Kerry La MD Work Phone: Start: 10-78-7218Zatjn of Hoda Chappell MD Work Phone: Start: 86-23-1675Xmr routine ecg w/least 12 lds trcg only w/o i&rMuhamad Kerry La MD Work Phone: Start: 13-90-5397Zeuqe metabolic panel calcium total Avihamad Kerry La MD Work Phone: [phone]: 98-53-2932Vxdvnacaxy exam small int single contrast Sergio Lujan MD Work Phone: Start: 12-93-2913Awwmffhnli exam chest single view Gonzales La MD Work Phone: Start: 86-97-6681Kdlla metabolic panel calcium total Houstonhunter Perkins MD Work Phone: Start: 25-14-8939Kybmn of magnesiumSandradhap Judith Perkins MD Work Phone: Start: 36-50-6104Bokfl metabolic panel calcium total Nazia Chappell MD Work Phone: Start: 24-57-2365Ieopk depression screening assessment Diann Wolfe MD Work Phone: Start: 05-03-8043FSZXV OXIMETRY, SPOTSbran Chappell MD Work Phone: Start: 16-41-8854Wimizfqbcoitu metabolic panelDeneen Jeffrey MD Work Phone: Start: 48-07-5888ATKHO-19, RAPIDLyla Burciaga MD Work Phone: Start: 94-28-7168Dzxtaedyvw exam abdomen 2 views Dorota SalterKarla PROGRAM DIR - PATTERN PAINTER Work Phone: Start: 58-84-8527Qjbpds ecg 1-3 leads w/interpretation & reportUnknown Provider ResultStart: 52-67-0686Vyzdg count complete auto&auto difrntl wbcLyla Burciaga MD Work Phone: Start: 33-46-8763Hwujwyinxf exam abdomen 1 viewSjie Burciaga MD Work Phone: Start: 09-06-2022 End: 42-96-4067Ofjsin ecg 1-3 leads w/interpretation & reportUnknown Provider ResultStart: 94-59-7616Voetk count complete auto&auto difrntl wbcLyla Burciaga MD Work Phone: start: 09-05-2022 End: 32-08-2478Hudrer ecg 1-3 leads w/interpretation & reportUnknown Provider ResultStart: 94-76-9941Phlfs count complete auto&auto difrntl Elise Burciaga MD Work Phone: Start: 14-79-7130Crjwjzjkka exam abdomen 2 views Dorotavish Woodson PROGRAM DIR - PATTERN PAINTER Work Phone: Start: 37-56-3823Jxyvjjgpzg exam abdomen 2 views Dorota Ana Chintan PROGRAM DIR - PATTERN PAINTER Work Phone: Start: 09-04-2022 End: 51-86-4756Kwbnwt ecg 1-3 leads w/interpretation & reportUnknown Provider ResultStart: 52-04-2433Zngyd count complete auto&auto difrntl Elise Burciaga MD Work Phone: Start: 90-64-4979Gnkfgankir exam abdomen 1 Kamlesh Burciaga MD Work Phone: Start: 43-39-3698Jncnajxnyc exam abdomen 1 Kamlesh Burciaga MD Work Phone: Start: 28-01-5146Ibdkw of magnesiumLyla Burciaga MD Work Phone: Start: 09-03-2022 End: 09-52-6466Bynhvu ecg 1-3 leads w/interpretation & reportUnknown Provider ResultStart: 88-90-0236Gzscim ecg 1-3 leads w/interpretation & reportUnknown Provider ResultStart: 54-92-4842Uwgnmoyoeq exam abdomen 1 Vamshi John MD Work Phone: Start: 55-86-0272Nl abdomen & pelvis w/contrast materialLuke Angeles PA-C Work Phone: Start: 59-05-9310Zaslkikgqnajn metabolic panelLuke RENTERIA-Janine Work Phone: Start: 97-93-2337Ntkczlobrk exam abdomen 1 viewShiwilber FuentesKarla PROGRAM DIR - PATTERN PAINTER Work Phone: Start: 42-63-3959Pdjmzqtuua exam abdomen 1 viewBettina I Nazemi DO Work Phone: Start: 66-55-5318Bwskw count complete auto&auto difrntl wbcMark Aron Chacon MD Work Phone: Start: 09-80-4685Wyazyy ecg 1-3 leads w/interpretation & reportUnknown Provider ResultStart: 15-27-1585Nvjghpvsns exam small int single contrast studyBettina I Nazemi DO Work Phone: Start: 65-01-7654Iejupafkvz exam abdomen 1 viewBettina I Nazemi DO Work Phone: Start: 74-71-8855Rnngg count complete auto&auto difrntl wbcMark Aron Chacon MD Work Phone: Start: 06-22-2022 End: 77-74-4303Whdvps ecg 1-3 leads w/interpretation & reportUnknown Provider ResultStart: 44-01-9816Suuirg ecg 1-3 leads w/interpretation & reportUnknown Provider ResultStart: 95-70-7320Qfzgnyqymdgz pulse oximetryMark Aron Chacon MD Work Phone: Start: 37-74-0061Kxhcy-dna/rna gi pthgn multiplex probe tq 12-25Brian Karthik PA-C Work Phone: Start: 50-09-0189Vkmebfbwdz exam abdomen 1 viewBrian Karthik PA-C Work Phone: Start: 39-12-1306Or abdomen & pelvis w/contrast materialBrian Karthik PA-C Work Phone: Start: 06-21-2022 End: 47-39-5054Sadbmyrkotaqu metabolic panelMarc Reji Dior MD Work Phone: Start: 33-93-2613WGNLXDBE PLATELET FRACTIONBrian Karthik PA-C Work Phone: Start: 67-84-5834EBCASDVM Cece Angeles PA-C Work Phone: Start: 25-90-8369FHOUD, Anuragsrinivasavish Ana JoieAdventist HealthCare [facility] Work Phone: Start: 17-06-2289Zonodqrybt exam small int single contrast studyDorota Perez [facility] Work Phone: Start: 92-50-5749Dwfyx count complete auto&auto difrntl wbcBecca Patel MD Work Phone: Start: 15-63-7014OJECYBK, WHOLE BLOODBecca Patel MD Work Phone: Start: 98-20-3587Qnrdxpmgwv exam complete acute abdomen Gemalistawny Pritchard PROGRAM DIR - [facility] Work Phone: Start: 01-34-1707Diiwc count complete auto&auto difrntl wbcBecca Patel MD Work Phone: Start: 84-44-7530Kpresctubf exam abdomen 1 Jared Perez JoieAdventist HealthCare [facility] Work Phone: Start: 37-22-8959Kuwse count complete auto&auto difrntl wbcBecca Patel MD Work Phone: Start: 05-09-2022 End: 21-77-3803Nnuffnymrw exam abdomen 1 viewJustin Andes DO Work Phone: Start: 69-85-9262Cwzff metabolic panel calcium total Aron Andes DO Work Phone: Start: 86-60-2096Vdgvwqw function panelJustin Andes DO Work Phone: Start: 87-35-8791Gcssbkjwlw microscopic onlyTammy L Jose Carlos PROGRAM DIR Work Phone: Start: 74-01-8429Kleig dip stick/tablet rgnt auto w/o microscopyTammy Jie Branch PROGRAM DIR Work Phone: Start: 39-28-5962Orsqf count complete auto&auto difrntl wbcMarc Reji Dior MD Work Phone: Start: 22-98-0302FHCIIZX B12 & FOLATEMarc Reji Dior MD Work Phone: Start: 98-74-2981Magei metabolic panel calcium total Shawnee Kayleigh DO Work Phone: Start: 38-06-9041Voweeqx function panelNicole Kayleigh DO Work Phone: Start: 89-87-5862Kdxzk metabolic panel calcium total Larry Roehrs DOStart: 09-19-3760Iq head/brain w/o contrast materialMatthew Roehrs DOStart: 29-41-8740Coy routine ecg w/least 12 lds w/i&rMatthew Roehrs DO Start: 56-02-5011Gkbufkkmweg laparotomyWilliam Rivera Start: 62-17-0982Yxfye 1996 panel - Serum or Plasma Anna Christine RN Work Phone: Start: 63-22-9772SUE screeningEugenia Ilo DO Work Phone: Comment on above:The Em ECLIA assay is used. Results obtained with different assay methods cannot be used interchangeably. Start: 10-80-5801Wlrcg metabolic panel calcium totalMarc Reji Dior MD Work Phone: Start: 69-40-2596Sttom panelMarc Reji Dior MD Work Phone: Start: 07-11-1464Nfdfz metabolic panel calcium total Shawnee Kayleigh Work Phone: Start: 28-33-9524Ycrqf count complete auto&auto difrntl wbcNicole Kayleigh Work Phone: Start: 82-16-4452Etdygbi function panelNicole Kayleigh Work Phone: Start: 25-62-2662Cghjazjtacad drug not elsewhere specifiedNicole Kayleigh Work Phone: Start: 87-21-7041Csldiwcyfn microscopic onlyEugenia [employer] Work Phone: Start: 40-51-5952Htuwr dip stick/tablet rgnt auto w/o microscopyEugenia J [employer] Work Phone: Start: 41-24-966041 hydroxy includes fractions if performedEugenia [employer] Work Phone: Start: 91-10-5351Pvgv screen quantitative phenobarbitalEugenia [employer] Work Phone: Start: 90-34-7288Ftgdyxhmcfkn drug not elsewhere specifiedEugenia Trelligence Phone: Start: 44-06-3053DrwynfypaennjdGqsgfea Walsh comment on above:LEFTStart: 50-44-4217Ofkhljkdd of left shoulder region (body structure)[employer] colonoscopyWillGlobal Cell Solutions Small intestine excisionWiWeMontage Vagal nerve stimulator (physical object)[employer] Plan of Treatment DateCare ActivityDetailAuthorStart: 37-74-7914Eeznw microalbumin profile DTaP,Tdap,Td Vaccine (5 - Td or Tdap)[facility]: 01-14[facility]2031 Respiratory Syncytial Virus (RSV) or age 60 yrs+ (1 - 1-dose 75+ series)Respiratory Syncytial Virus (RSV) or age 60 yrs+ (1 - 1-dose 75+ series)[facility] CenterStart: 53-72-8161ZFQ ( or age 60+ yrs) (1 - 1-dose 75+ series)RSV ( or age 60+ yrs) (1 - 1-dose 75+ series) [facility] Attunity SystemStart: 89-19-5228LYJ Vaccine (1 - 1-dose 75+ series)RSV Vaccine (1 - 1-dose 75+ series)[facility] Cent[facility]art: 41-81-6455ZLW vaccine (adult) (1 - 1-dose 75+ series)RSV vaccine (adult) (1 - 1-dose 75+ series) [facility]Start: 25-39-5737Zkdfaejd ScreeningDiabetes ScreeningAcmc Healthcare System Start: 38-49-7540Txfgffod ScreeningDiabetes ScreeningTogus VA Medical Centertart: 21-86-6828Hueipntt ScreeningDiabetes ScreeningTogus VA Medical Centertart: 04-13-2026 Lipid panelBON SELECT MED[facility] - TRUMBULLStart: 34-54-6921Fyaar BMI ScreeningAdult BMI ScreeningBrown Memorial Hospital SystemStart: 51-21-7235Gqlfazy ScreeningTobacco ScreeningFormerly [facility], 1928[facility]1983tart: 09-67-3985Bbuqk BMI ScreeningAdult BMI ScreeningFormerly [facility], 1928–1983tart: 52-27-6343Kmkrgqv ScreeningTobacco ScreeningFormerly [facility], 1928–1983tart: 34-70-0910Jvkcc BMI ScreeningAdult BMI ScreeningFormerly [facility], 1928–1983tart: 67-41-4843Pywcw BMI ScreeningAdult BMI ScreeningFormerly [facility], 1928–1983tart: 29-29-0352Xshtkro ScreeningTobacco ScreeningFormerly [facility], 1928–1983tart: 21-30-3144Zhlvd panelLipid screenMercy Health Anderson HospitalStart: 68-57-3544ftugdjsdyuCllybqmbbyKbcapeto:EU BellevueStart: 02-18-2025 Medicare Annual Wellness (AWV)Medicare Annual Wellness (AWV)[facility] Start: 02-06-2025 End: 26-75-8542Scqalsh encounter ygrlfhnlz50/05/2025 10:30 AM EST Office Visit [facility] [address] [place] [address] Carson Dior MD [address] [place] [address] [facility] FMStart: 01-07-2025 End: 97-53-2126Nlbih metabolic 2000 panel - Serum or PlasmaBasic Metabolic Panel Lab Routine JOSÉ MIGUEL (acute kidney injury) Expected: 01/07/2025, Expires: 01/04/2026 [facility] HospitalAbove [facility] Work Phone: Comment on above:Expected: 01/07/2025, Expires: 01/04/2026Start: 11-27-2024 End: 55-89-6296Djsrknf encounter urscejovj56/25/2025 2:00 PM EDT Office Visit Gastroenterology [address] [place], [place] [id number] [place] [address] [place], [place] [id number] 6 month follow upGastroenterologyComment on above:6 month follow upStart: 32-13-1728ZYDNB-19 Vaccine ( season)COVID-19 Vaccine ( season)[facility] CenterStart: 92-75-6319HLAOT-19 Vaccine ( season)COVID-19 Vaccine ( season)[facility] Start: 24-27-9157Qwfmqrttw vaccinationNOCooper County Memorial HospitalStart: 10-28-2024 End: 89-83-5433Mziqwlw encounter pakjkbfyq46/26/2025 11:30 AM EDT Office Visit [facility] [address] [place] [address] Carson Dior MD [address] [place] [address] [facility]OREM [facility] CWM FMComment on above:ArrivedStart: 10-27-2024 End: 97-05-0641Acualhm encounter ixhoipqeh23/25/2025 10:30 AM EDT Office Visit [facility] [address] [place] [address] Shawnee Butler, [address] [place] [address] [facility] ANDINOtart: 10-13-2024 End: 36-66-5501Vujzhtt encounter goqetuogv62/11/2025 9:45 AM EDT Office Visit [facility] [address] [place] [address] Carson Dior MD [address] [place] [address] [facility] CWM FMStart: 75-12-1703WclrntvghHospital Corporation of America Start: 09-10-2024 End: 59-45-9469Cbsuibq encounter lkyeegznx04/09/2025 11:00 AM EDT Office Visit [facility] [address] [place] [address] Carson Dior MD [address] [place] [address] ArrivedNOMS CWM FMComment on above:ArrivedStart: 08-06-2024 End: 52-69-5346Kxqwehe encounter wowlbftku46/04/2025 11:00 AM EDT Office Visit [facility] [address] [place] [address] Carson Dior MD [address] [place] [address] ArrivedNOMS CWM FMComment on above:ArrivedStart: 07-31-2024 End: 63-74-1684Jztredz encounter eztgytgji68/29/2025 3:30 PM EDT Office Visit [facility] [address] [place] [address] Carson Dior MD [address] [place] [address] [facility] CWM FMStart: 07-01-2024 End: 80-66-4319Wdwhpgy encounter /29/2025 10:30 AM EDT Office Visit [facility] SIFUENT[facility] [address] [place] [address] Shawnee Butler DO [address] [place] [address] [facility] ALISSONEVUEStart: 06-30-2024 End: 18-63-3836Singdkh encounter procedureNOMS CWM FMComment on above:Seizure disorder (CMS/HCC) (Primary Dx); Developmental delay; Chronic constipation; Moderate intellectual disability (CMS/HCC); SBO (small bowel obstruction) (CMS/HCC)Start: 05-22-2024 End: 88-34-2408Wwqauho encounter bdutniduo17/20/2025 1:00 PM EDT Office Visit Gastroenterology [address] [place] [address] [place], [place] [id number] [place] [address] [place] [address] Return in about 6 months (around 05/21/2024)Gastroenterology Comment on above:Return in about 6 months (around 05/21/2024)Start: 05-06-2024 End: 97-93-3797Lrledki encounter iylhzuibw31/04/2025 11:45 AM EST Office Visit [facility] [address] [place] [address] Shawnee Butler DO [address] [place] [address] [facility] MEETAUEStart: 04-30-2024 End: 50-50-8523Fimlmnk encounter /26/2025 11:00 AM EST Office Visit [facility] [address] [place] [address] Carson Dior MD [address] [place] [address] [facility] CWM FMStart: 89-49-4657Zjwje BMI ScreeningAdult BMI ScreeningProMedica Health SystemStart: 04-16-2024 End: 24-80-7773Sogdwqo encounter /12/2025 3:00 PM EST Office Visit [facility] SIFUENT[facility] [address] [place] [address] Shawnee Butler DO [address] [place] [address] N[facility] ANDINOtart: 04-15-2024 End: 98-94-9650Mfkblto encounter lwbvedqey07/11/2025 8:15 AM EST Office Visit [facility] [place] [address] [place] [address] Kayleigh Shawnee DO [address] [place] [address] NOMJudith SIFUENTES [facility] ROUTEStart: 04-14-2024 End: 12-68-4007Deuykgd encounter procedureNOMS CWM FMComment on above:Arrived Start: 66-19-1438Xmfddctdcz ScreeningDepression ScreeningCity Hospitalca Health System Start: 47-10-6881Wmpkhxv ScreeningTobacco ScreeningBrown Memorial Hospital SystemStart: 47-45-0565Tnleofg Directive DiscussionAdvance Directive DiscussionPanther Burn ClinicStart: 59-27-9581Gboayk Wellness Visit (Medicare Advantage)Annual Wellness Visit (Medicare Advantage)[facility] HospitalStart: 02-19-2024 End: 68-97-6698Wzcvnsa encounter qprczadsq58/17/2024 11:30 AM EST Office Visit [facility] [address] [place] [address] Carson Dior MD [address] [place] [address] ArrivedNOMS CWM FMComment on above:ArrivedStart: 01-29-2024 End: 47-17-9282Wwtwhrq encounter procedureMetroLakeland Regional Health Medical CenterStart: 01-25-2024 End: 74-27-5428Ohfsrcr encounter izvvzjfrn87/22/2024 11:00 AM EST Procedure Visit [facility] [address] [phone] Lizbeth Regalado, DDS [address] [place] [address] [facility] DentistryStart: 01-22-2024 End: 59-82-5468Rimhtuk encounter /19/2024 5:30 PM EST Office Visit [facility] [place] [address] [place] [address] Shawnee Butler, [address] [place] [address] [facility] [place] [facility] R[facility]TEStart: 40-08-3869Tqtwwnvdy for malignant neoplasm of colonBON SELECT MED[facility] TRUMBULLStart: 90-29-6408Ekgqijipw vaccinationInfluenza Vaccine (#1)[facility]Start: 74-76-9237Xluqo-19 Vaccine ( season)Covid-19 Vaccine ( season)[facility]art: 61-89-1516QTHBM-19 Vaccine ( season)COVID-19 Vaccine ( season)[facility] HospitalStart: 38-23-7489MDZHK-19 Vaccine ( season)COVID-19 Vaccine ( season)[facility], 1928–1983tart: 57-72-3896Elfhuvcxu vaccinationTogus VA Medical Centertart: 10-18-2023 End: 76-60-0290Fchxrmt encounter /15/2024 8:30 AM EDT Office Visit Gastroenterology [address] [facility] [place] [address] Nicola Chew MD [address] [place] [address] Partial small bowel obstructionGastroenterologyComment on above:Partial small bowel obstructionStart: 01-87-7008Keuzoyhly vaccinationCJW MEDICAL CENTERStart: 13-51-1859Jmaca panelLipid [facility] [place] [facility], [place] Start: 66-87-4318Fozfd screenLipid [facility], [place]Start: 07-10-2023 Pneumococcal 50+ years Vaccine (3 of 3 - PCV20 or PCV21)Pneumococcal 50+ years Vaccine (3 of 3 - PCV20 or PCV21)[facility]: 07-10-2023 Pneumococcal 65+ years Vaccine (#3)Pneumococcal 65+ years Vaccine (#3)[facility]: 52-15-0685Rjuajncergyx 65+ years Vaccine (2 - PPSV23 or PCV20)Pneumococcal 65+ years Vaccine (2 - PPSV23 or PCV20)[facility]: 54-25-2673Unwfavtelect 65+ years Vaccine (3 - PPSV23 if available, else PCV20)Pneumococcal 65+ years Vaccine (3 - PPSV23 if available, else PCV20) [facility]: 39-84-9101Mlvdkwijhszm 65+ years Vaccine (3 - PPSV23 or PCV20)Pneumococcal 65+ years Vaccine (3 - PPSV23 or PCV20)[facility]: 54-88-6202Ezzmmjccocez 65+ years Vaccine (3 of 3 - PPSV23 or PCV20)Pneumococcal 65+ years Vaccine (3 of 3 - PPSV23 or PCV20)[facility]: 13-41-5171Dlmkvcgovwrr vaccinationPneumococcal Vaccine(s) (65+ yrs) (3 of 3 - PPSV23 or PCV20)[facility]: 49-25-3684Qhrraztwpcig Vaccine: 50+ (3 of 3 - PCV20 or PCV21)Pneumococcal Vaccine: 50+ (3 of 3 - PCV20 or PCV21)[facility]: 23-21-1793Ybgfihdeefjr Vaccine: 65+ (3 of 3 - PPSV23 or PCV20)Pneumococcal Vaccine: 65+ (3 of 3 - PPSV23 or PCV20)[facility]: 73-87-8174Wrywmmzorlnk Vaccine: 65+ Years (3 of 3 - PCV20 or PCV21) Pneumococcal Vaccine: 65+ Years (3 of 3 - PCV20 or PCV21)[facility] HealthcareStart: 30-21-0306Infqmaefeevz Vaccine: 65+ Years (3 of 3 - PPSV23 or PCV20)Pneumococcal Vaccine: 65+ Years (3 of 3 - PPSV23 or PCV20)[facility] HealthcareStart: 06-19-2023 End: 61-25-3444Gcwxn metabolic 2000 panel - Serum or PlasmaBasic Metabolic Panel Lab Routine Ileus (HCC) Expected: 06/19/2023, Expires: 06/13/2024ON [facility] on above:Expected: 06/19/2023, Expires: 06/13/2024Start: 06-19-2023 End: 64-56-3454BMH W Auto Differential panel - BloodCBC with Auto Differential Lab Routine Ileus (HCC) Expected: 06/19/2023, Expires: 06/13/2024ON [facility] on above:Expected: 06/19/2023, Expires: 06/13/2024Start: 05-09-2023 End: 87-94-8904Jagsfmw encounter ijjldkwum51/06/2024 1:15 PM EST [facility] [address] [place] [address] Diann Wolfe MD [address] [place] [address] [facility] Physicians CardiologyStart: 17-02-0370Rjckwuk Directive DiscussionAdvance Directive DiscussionCleGrant Hospitaltart: 79-48-1946Ekplpd Wellness Visit (Medicare Advantage)Annual Wellness Visit (Medicare Advantage)[facility]: 50-91-9705Hxzptcfetm Health ScreeningBehavioral Health ScreeningTogus VA Medical Centertart: 03-04-2023 DTaP,Tdap and Td Vaccines (4 - Td or Tdap)DTaP,Tdap and Td Vaccines (4 - Td or Tdap)[facility] SystemStart: 85-32-1797XKeY/Tdap/Td vaccine (2 - Td or Tdap)DTaP/Tdap/Td vaccine (2 - Td or Tdap)[facility]: 03-04-2023 DTaP/Tdap/Td vaccine (2 - Td)DTaP/Tdap/Td vaccine (2 - Td)[facility], [place] Start: 71-64-7814EQhP/Tdap/Td vaccine (4 - Td or Tdap)DTaP/Tdap/Td vaccine (4 - Td or Tdap)[facility]Start: 20-39-3726Wqeomfl vaccinationTetanus (Td or Tdap) BoosterMetroBellevue HospitalStart: 67-88-5235Qocpj microalbumin profile DTaP,Tdap,Td Vaccine (4 - Td or Tdap)[facility]: 13-50-3682KYDSU-19 Vaccine ( season)COVID-19 Vaccine ( season)[facility] Allianceart: 48-76-6081Wqyhlfpyp vaccinationInfluenza VaccineProTuscarawas Hospitaltart: 95-57-6760Qrpaczvwr vaccinationBON [facility] Start: 42-51-0330Ayrbizcs specific antigen measurementProstate Specific Antigen (PSA) Screening or MonitoringBON [facility]: 36-01-8710Chgzpwkmz vaccinationFlu vaccine (#1)[facility]: 84-76-6400Yocihfjsm vaccinationFlu vaccine (#1)[facility]: 58-47-5045EWSDA-19 Vaccine (4 - Booster for Pfizer series)COVID-19 Vaccine (4 - Booster for Pfizer series)[facility]: 87-79-6125NMTXR-19 Vaccine (4 - Booster for Pfizer series)COVID-19 Vaccine (4 - Booster for Pfizer series)[facility]: 08-43-0973Bcoa Risk ScreeningFall Risk ScreeningFormerly [facility]tart: 77-81-9386Cctjlkcspnol 65+ years Vaccine (2 of 2 - PPSV23) Pneumococcal 65+ years Vaccine (2 of 2 - PPSV23)[facility]: 01-14-2021 Pneumococcal vaccinationPneumococcal Vaccine(s) (65+ yrs) (1 of 1 - PCV) [facility] HospitalStart: 95-01-7015Oiipobfdq vaccinationMercy Health Anderson HospitalStart: 11-04-2019 Influenza vaccinationFlu vaccine (#1)[place]: 07-24-2019 Prostate specific antigen measurementProstate Cancer Screening Discussion [facility]: 05-07-2020Medicare Annual Wellness (AWV)Medicare Annual Wellness (AWV)[facility]Start: 05-07-2020Medicare Annual Wellness Visit Medicare Annual Wellness VisitFormerly [facility]1983tart: 28-10-8994Iikboz Wellness Visit (G0439)Annual Wellness Visit (G0439)[facility]Start: 11-03-2018 Influenza vaccinationFlu vaccine (#1)[place]: 96-39-8005Cvkusu Wellness Visit (AWV)Annual Wellness Visit (AWV)[facility]: 03-11-2016 Administration of varicella zoster vaccineZoster (Shingles) Vaccine (2 of 3) [facility]tart: 23-56-9939Jqarojee vaccine (2 of 3)Shingles vaccine (2 of 3)[facility]Start: 46-17-7134Mnnqksso Vaccine (2 of 3)Shingrix Vaccine (2 of 3)[facility]: 26-14-0604Ukzuoxwqk B (HBV) Vaccine (optional start 60+ years)Hepatitis B (HBV) Vaccine (optional start 60+ years)[facility] HospitalHealthStart: 28-55-8063Kpbeirryhmc Syncytial Virus (RSV) or age 60 yrs+ (1 - 1-dose 60+ series)Respiratory Syncytial Virus (RSV) or age 60 yrs+ (1 - 1-dose 60+ series)[facility]: 56-33-6480LNZ Vaccine (1 - 1-dose 60+ series)RSV Vaccine (1 - 1-dose 60+ series)[facility]: 78-01-4365HXK vaccine (optional 60+ years)RSV vaccine (optional 60+ years)[facility]Start: 95-34-0269POuT/Tdap/Td Vaccines (3 - Td or Tdap) DTaP/Tdap/Td Vaccines (3 - Td or Tdap)[facility] HospitalStart: 53-31-9745Wwwiq cancer screen colonoscopyColon cancer screen colonoscopySyr[place], [place] Start: 29-34-8959Jherplqry for malignant neoplasm of colonColon cancer screen colonoscopySyracuse, [place]Start: 34-40-5201Lxfwwlcx (RZV) Vaccine (1 of 2) Shingles (RZV) Vaccine (1 of 2)[facility]Start: 72-10-3624Zfdsfbft Vaccine (1 of 2)Shingles Vaccine (1 of 2)[facility]art: 76-91-2016Czwrlnfv Vaccine (1 of 2)Shingrix Vaccine (1 of 2)[facility]: 94-83-0854Kzgxhnnmx for malignant neoplasm of colonMercy Health Anderson HospitalStart: 86-11-8968Ehfsjtsh screenDiabetes screenMountain States Health Allianceart: 90-90-0531Wdomq panelCholesterolMetroHealth Start: 73-23-8305Tabrvojek A (HAV) Vaccine (optional start 19+ years)Hepatitis A (HAV) Vaccine (optional start 19+ years)[facility] HospitalStart: 05-02-6841Mgsbb BMI Follow Up PlanAdult BMI Follow Up [facility]art: 01-14-1974 Anxiety ScreeningAnxiety ScreeningTogus VA Medical Centertart: 77-65-8890Orxgatcqfd ScreeningDepression ScreeningTogus VA Medical Centertart: 13-81-4951Loajbtyce C screeningBON [facility]: 38-55-6119Yzjtfif + diphtheria + acellular pertussis vaccine (product)Tdap BoosterMetroHealthStart: 89-53-4433KSY screenHIV screenOhioHealth Mansfield Hospitalart: 83-20-9509MDO screeningHIV screen [facility]: 43-79-9256TJESG-19 Vaccine (1)COVID-19 Vaccine (1)[facility] Phone: start: 84-43-8952Apekyjicre ScreenDepression Screen [facility]: 63-76-4708PAQMO-19 Vaccine (1)COVID-19 Vaccine (1)[facility]: 40-03-1302Wsqknfvwp B vaccine (2 of 3 - 3-dose series)Hepatitis B vaccine (2 of 3 - 3-dose series)[facility]: 1955 Hepatitis B Vaccines (2 of 3 - 3-dose series)Hepatitis B Vaccines (2 of 3 - 3- dose series)[facility] HospitalStart: 49-98-6527Vgvypb Wellness Visit (AWV)Annual Wellness Visit (AWV)[facility]: 34-46-0900Idlbacxxj C screen Hepatitis C screenS[place], [place]Start: 90-52-8046Yyekchtix C screening Hepatitis C screenSelect [facility]ty [facility]: 82-09-7954Utoqlrrri for malignant neoplasm of colonMetroHealth End: 20-33-6659Trasopss identified Cx Nom (U)Urine Culture Microbiology Routine Once for 1 Occurrences starting 12/05/2018 until 12/05/2018[place] Comment on above:Once for 1 Occurrences starting 12/05/2018 until 12/05/2018 Bacteria identified Cx Nom (U)Urine Culture Microbiology Routine 12/05/2018 6:15 AM [place], [place] End: 45-29-4447Whvmz Metabolic Panel w/ Reflex to MGBasic Metabolic Panel w/ Reflex to MG Lab Routine Daily for 3 Days starting 06/24/2022 until 06/26/2022 [facility] [employer] Work Phone: comment on above:Daily for 3 Days starting 06/24/2022 until 06/26/2022 End: 72-05-6315Hgtdg Metabolic Panel w/ Reflex to MGBasic Metabolic Panel w/ Reflex to MG Lab Routine Daily for 5 Days starting 02/03/2024 until 02/07/2024, 4 [facility]unitySam[facility] on above:Daily for 5 Days starting 02/03/2024 until 02/07/2024, 4 completed End: 50-53-9084Glxvf Metabolic Panel w/ Reflex to MGBasic Metabolic Panel w/ Reflex to MG Lab Routine Daily for 5 Days starting 04/20/2024 until 04/24/2024, 4 [facility] CloudFlarechristianac[facility] BiotechSamaritan Hospital on above:Daily for 5 Days starting 04/20/2024 until 04/24/2024, 4 completed End: 91-47-2278Zsdzn Metabolic Panel w/ Reflex to MGBasic Metabolic Panel w/ Reflex to MG Lab Routine Daily for 5 Days starting 07/15/2024 until 07/19/2024, 2 [facility]rawNextworthSamaritan Hospital on above:Daily for 5 Days starting 07/15/2024 until 07/19/2024, 2 completed End: 73-72-5052Ygvzi Metabolic Panel w/ Reflex to MGBasic Metabolic Panel w/ Reflex to MG Lab Routine Daily for 5 Days starting 08/19/2024 until 08/23/2024, 3 [facility]worth[facility] on above:Daily for 5 Days starting 08/19/2024 until 08/23/2024, 3 completedC. difficile toxin MolecularC. difficile toxin Molecular Microbiology Routine 12/17/2024 11:49 AM EDWest Roxbury VA Medical CenterNextworth End: 90-73-8653FMG W Auto Differential panel - BloodCBC auto differential Lab Routine Tomorrow AM for 9 Occurrences starting 06/22/2022 until 06/30/2022, 2 [facility] [employer] Work Phone: comment on above:Tomorrow AM for 9 Occurrences starting 06/22/2022 until 06/30/2022, 2 completed End: 46-93-9038IFU W Auto Differential panel - BloodCBC auto differential Lab Routine Daily for 7 Days starting 09/03/2022 until 09/09/2022, 5 [facility] MarionHipLogicSamaritan Hospital on above:Daily for 7 Days starting 09/03/2022 until 09/09/2022, 5 completed End: 64-07-8738XPU W Auto Differential panel - BloodCBC auto differential Lab Routine Daily for 7 Days starting 06/12/2023 until 06/18/2023, 3 [facility] on above:Daily for 7 Days starting 06/12/2023 until 06/18/2023, 3 completed End: 88-99-0917KNR W Auto Differential panel - BloodCBC auto differential Lab Routine Daily for 5 Days starting 02/03/2024 until 02/07/2024, 4 [facility] Document AgilitySamaritan Hospital on above:Daily for 5 Days starting 02/03/2024 until 02/07/2024, 4 completed End: 93-77-1494FXD W Auto Differential panel - BloodCBC auto differential Lab Routine Daily for 5 Days starting 04/20/2024 until 04/24/2024, 4 [facility] on above:Daily for 5 Days starting 04/20/2024 until 04/24/2024, 4 completed End: 35-50-0489TCH W Auto Differential panel - BloodCBC auto differential Lab Routine Daily for 5 Days starting 06/17/2024 until 06/21/2024, 2 [facility] on above:Daily for 5 Days starting 06/17/2024 until 06/21/2024, 2 completed End: 52-33-2949ONX W Auto Differential panel - BloodCBC auto differential Lab Routine Daily for 5 Days starting 07/15/2024 until 07/19/2024, 2 [facility] on above:Daily for 5 Days starting 07/15/2024 until 07/19/2024, 2 completed End: 70-96-3027HLL W Auto Differential panel - BloodCBC auto differential Lab Routine Daily for 5 Days starting 08/19/2024 until 08/23/2024, 3 [facility] on above:Daily for 5 Days starting 08/19/2024 until 08/23/2024, 3 completedCBC W Auto Differential panel - BloodCBC auto differential Lab Routine Lab max of 3 days, Daily, for lab use only until discontinued starting 10/15/2024, 5 [facility]Comment on above:Lab max of 3 days, Daily, for lab use only until discontinued starting 10/15/2024, 5 completedCBC W Auto Differential panel - BloodCBC auto differential Lab Routine Lab max of 3 days, Daily, for lab use only until discontinued starting 01/05/2025, 4 [facility] HospitalComment on above:Lab max of 3 days, Daily, for lab use only until discontinued starting 01/05/2025, 4 completedComprehensive metabolic 2000 panel - Serum or Plasma Comprehensive metabolic panel Lab Routine Lab max of 3 days, Daily, for lab use only until discontinued starting 10/15/2024, 5 [facility] Comment on above:Lab max of 3 days, Daily, for lab use only until discontinued starting 10/15/2024, 5 completedComprehensive metabolic 2000 panel - Serum or PlasmaComprehensive metabolic panel Lab Routine Lab max of 3 days, Daily, for lab use only until discontinued starting 01/05/2025, 4 [facility] on above:Lab max of 3 days, Daily, for lab use only until discontinued starting 01/05/2025, 4 completed End: 92-15-3901Hthvwllzjtcex Metabolic Panel w/ Reflex to MGComprehensive Metabolic Panel w/ Reflex to MG Lab Routine Daily for 7 Days starting 09/03/2022 until 09/09/2022, 5 [facility] on above:Daily for 7 Days starting 09/03/2022 until 09/09/2022, 5 completed End: 29-41-2832Xogjrwayhdtwq Metabolic Panel w/ Reflex to MGComprehensive Metabolic Panel w/ Reflex to MG Lab Routine Daily for 7 Days starting 06/12/2023 until 06/18/2023, 3 [facility] on above:Daily for 7 Days starting 06/12/2023 until 06/18/2023, 3 completed End: 73-73-9182Mohfdyruyjfpb Metabolic Panel w/ Reflex to MGComprehensive Metabolic Panel w/ Reflex to MG Lab Routine Daily for 5 Days starting 06/17/2024 until 06/21/2024, 2 [facility] on above:Daily for 5 Days starting 06/17/2024 until 06/21/2024, 2 completed End: 58-35-0726Rknwsvz, Blood 1Culture, Blood 1 Microbiology STAT One Time for 1 Occurrences starting 04/24/2023 until 04/24/2023[facility] on above:One Time for 1 Occurrences starting 04/24/2023 until 04/24/2023 Culture, Blood 1Culture, Blood 1 Microbiology STAT 06/11/2023 10:15 AM EDTBON [facility] [employer] [facility]ULLCulture, Blood 1Culture, Blood 1 Microbiology STAT 06/16/2024 10:04 AM EDTBon [facility] HospitalCulture, Blood 1Culture, Blood 1 Microbiology STAT 07/14/2024 7:46 AM EDTBon [facility] HospitalCulture, Blood 2 Culture, Blood 2 Microbiology STAT 06/11/2023 11:50 AM EDZoom [employer] - [place] End: 92-06-3408Ucojkmh, UrineBON [employer] Work Phone: comment on above:Once for 1 Occurrences starting 05/05/2022 until 05/05/2022EKG 12 LeadEKG 12 Lead ECG STAT 09/10/2021 9:45 PM EDZoom Media & Marketing - United StatesGastrointestinal Panel, MolecularGastrointestinal Panel, Molecular Microbiology Routine 12/17/2024 11:49 AM EDJuiceBox Games End: 61-80-4073Prbulgz [Mass/volume] in Serum or PlasmaPOCT glucose Point of Care Testing Routine One Time for 1 Occurrences starting 06/12/2023 until ON PortafareComment on above:One Time for 1 Occurrences starting 06/12/2023 until 06/12/2023Initiate RT Inhaler-Nebulizer Bronchodilator ProtocolInitiate RT Inhaler-Nebulizer Bronchodilator Protocol Respiratory Care Routine Daily until discontinued starting 06/21/2023 [employer] Comment on above:Daily until discontinued starting 06/21/2023Intermittent pulse oximetryPulse Oximetry Spot Check Respiratory Care Routine As Needed until discontinued starting 04/24/2023 PortafareComment on above:As Needed until discontinued starting 04/24/2023 End: 98-76-1517Chjoacoosx LevelLacosamide Level Lab Routine Once for 1 Occurrences starting 10/31/2018 until 10/31/2018[facility] [place]:Once for 1 Occurrences starting 10/31/2018 until 10/31/2018[facility] [place] End: 91-46-3750Kcmemkokys LevelLacosamide Level Lab Routine Once for 1 Occurrences starting 12/31/2019 until 12/31/2019[facility]unityTH[facility], [place]Comment on above:Once for 1 Occurrences starting 12/31/2019 until 12/31/2019 End: 29-89-0499Niwfdbkjuo [facility] [employer] Work Phone: Comment on above:Once for 1 Occurrences starting 11/09/2021 until 11/09/2021 End: 73-71-7752Zqsxtewxgm LevelBon [facility] [employer] Work Phone: comment on above:Once for 1 Occurrences starting 04/30/2024 until 04/30/2024Magnesium [Mass/volume] in Serum or PlasmaMagnesium Lab Routine Lab max of 3 days, Daily, for lab use only until discontinued starting 10/15/2024, 5 completedNorth Country HospitalGame Face Hockey SystemComment on above:Lab max of 3 days, Daily, for lab use only until discontinued starting 10/15/2024, 5 completedMagnesium [Mass/volume] in Serum or PlasmaMagnesium Lab Routine Lab max of 3 days, Daily, for lab use only until discontinued starting 01/05/2025, 4 completedCity HospitalIllumio [facility] HospitalComment on above:Lab max of 3 days, Daily, for lab use only until discontinued starting 01/05/2025, 4 completedMDI treatmentMDI treatment Respiratory Care Routine As Needed until discontinued starting 06/21/2023ON [facility] AdlogixSELECT MEDICAL CLEVEL[facility] CL[facility]HABILIT[facility] HOSPITAL, AVONComment on above:As Needed until discontinued starting 06/21/2023Oxygen Therapy - Maintain SpO2: 90%; *BINDER OPERATOR Guidelines for O2: Yes; Document: \[employer] [email or web address]\epic\EPIC_Reference\Orders\Respiratory Care Guidelines\CPG Oxygen 2022.pdfOxygen Therapy - Maintain SpO2: 90%; *BINDER OPERATOR Guidelines for O2: Yes; Document: \[employer] Networki.[email or web address]\epi c\EPIC_Reference\Orders\Respiratory Care Guidelines\CPG Oxygen 2022.pdf Respiratory Care Routine AsNeeded until discontinued starting 10/14/2024 t[employer]n [employer] Work Phone: Comment on above:As Needed until discontinued starting 10/14/2024Oxygen Therapy - Maintain SpO2: 90%; *BINDER OPERATOR Guidelines for O2: Yes; Document: \[employer] Networki.[employer] Media Limitededica.org\epic\EPIC_Reference\Orders\Respiratory Care Guidelines\CPG Oxygen 2022.pdfOxygen Therapy - Maintain SpO2: 90%; *BINDER OPERATOR Guidelines for O2: Yes; Document: \[employer] Networki.[employer] [email or web address]\epi c\EPIC_Reference\Orders\Respiratory Care Guidelines\CPG Oxygen 2022.pdf Respiratory Care Routine AsNeeded until discontinued starting 01/04/2025 [employer] Phone: Comment on above:As Needed until discontinued starting 01/04/2025Oxygen therapy [Minimum Data Set]Initiate Oxygen Therapy Protocol Respiratory Care Routine As Needed until discontinued starting 05/09/2022 [employer] Phone: comment on above:As Needed until discontinued starting 05/09/2022Oxygen therapy [Minimum Data Set]Initiate Oxygen Therapy Protocol Respiratory Care Routine As Needed until discontinued starting 06/21/2022 [employer] Phone: comment on above:As Needed until discontinued starting 06/21/2022Oxygen therapy [Minimum Data Set]Initiate Oxygen Therapy Protocol Respiratory Care Routine Daily until discontinued starting 09/02/2022 [employer] on above:Daily until discontinued starting 09/02/2022Oxygen therapy [Minimum Data Set]Initiate Oxygen Therapy Protocol Respiratory Care Routine As Needed until discontinued starting 04/24/2023 [employer] Phone: comment on above:As Needed until discontinued starting 04/24/2023Oxygen therapy [Minimum Data Set]Initiate Oxygen Therapy Protocol Respiratory Care Routine As Needed until discontinued starting 06/11/2023 [employer] on above:As Needed until discontinued starting 06/11/2023Oxygen therapy [Minimum Data Set]Initiate Oxygen Therapy Protocol Respiratory Care Routine Daily until discontinued starting 06/11/2023 [employer] on above:Daily until discontinued starting 06/11/2023Oxygen therapy [Minimum Data Set]Initiate Oxygen Therapy Protocol Respiratory Care Routine As Needed until discontinued starting 06/20/2023 [employer] on above:As Needed until discontinued starting 06/20/2023Oxygen therapy [Minimum Data Set]Initiate Oxygen Therapy Protocol Respiratory Care Routine Daily until discontinued starting 02/03/2024 [employer] on above:Daily until discontinued starting 02/03/2024Oxygen therapy [Minimum Data Set]Initiate Oxygen Therapy Protocol Respiratory Care Routine Daily until discontinued starting 04/19/2024 [employer] on above:Daily until discontinued starting 02/15/2025Oxygen therapy [Minimum Data Set]Initiate Oxygen Therapy Protocol Respiratory Care Routine Daily until discontinued starting 06/16/2024 Document [facility]ilitySamaritan Hospital on above:Daily until discontinued starting 06/16/2024Oxygen therapy [Minimum Data Set]Initiate Oxygen Therapy Protocol Respiratory Care Routine Daily until discontinued starting 08/18/2024 Document [facility]Sam[facility] Hospital on above:Daily until discontinued starting 08/18/2024 End: 25-28-3130Rjmvjgmiaa elastase, fecalBon Document [employer] Work Phone: comeeey on above:Once for 1 Occurrences starting 12/17/2024 until 12/17/2024Positive Expiratory Pressure TherapyPositive Expiratory Pressure Therapy Respiratory Care Routine TID until discontinued starting 06/18/2024 Document [facility]Sam[facility] Hospital on above:TID until discontinued starting 06/18/2024 End: 58-88-6931Abdupguqi levelPrimidone level Lab Routine Once for 1 Occurrences starting 10/31/2018 until 10/31/2018[facility] Cooking.comComment on above:Once for 1 Occurrences starting 10/31/2018 until 10/31/2018Primidone levelPrimidone level Lab Routine 10/31/2018 12:05 PM [facility] CENTERSupplyFrame End: 77-59-8494Okouwelbu levelCobre [facility] Document [facility]Sam[facility] Hospital on above:Once for 1 Occurrences starting 04/30/2024 until 04/30/2024 End: 69-98-0627Ozdpmhxmnd exam small int single contrast studyBON PortafareSamaritan Hospital on above:Once for 1 Occurrences starting 06/13/2023 until 06/13/2023 End: 98-96-2257Vxbqapldwp exam small int single contrast studyFL SMALL BOWEL FOLLOW THROUGH ONLY Imaging Routine Once for 1 Occurrences starting 04/21/2024 until04/21/2024 Document [facility]ilitySamaritan Hospital on above:Once for 1 Occurrences starting 04/21/2024 until 04/21/2024Radiologic exam small int single contrast studyFL SMALL BOWEL FOLLOW THROUGH ONLY Imaging Routine 04/21/2024 8:14 PM EST [facility] Document [employer] End: 98-00-9018EF videography Hypopharynx and Esophagus Views W liquid and paste contrast PO during swallowingXR MODIFIED BARIUM SWALLOW W SPEECH THERAPY Radiology Routine Cough, unspecified type 1 Occurrencesstarting 11/22/2023 until 12/21/2024[facility] Work Phone: Comment on above:1 Occurrences starting 11/22/2023 until 12/21/2024 End: 72-80-0887TFUHMVVS REJECTIONBON PortafareComment on above:Once for 1 Occurrences starting 04/27/2023 until 04/27/2023Surgical Pathology [employer] Work Phone: Comment on above:Release Upon Ordering for 1 Occurrences starting 01/06/2025, 1 completedVibratory Airway ClearanceVibratory Airway Clearance Respiratory Care Routine TID until discontinued starting 06/18/2024on Document AgilityComment on above:TID until discontinued starting 06/18/2024VNS Device Interrogation w/o programmingVNS Device Interrogation w/o programming Neurology Routine Localization-related (focal) (partial) symptomatic epilepsy and epileptic syndromes with complex partial seizures, not intractable, without status epilepticus (CMS/HCC) Ordered: 02/28/2024[facility] [place] Work Phone: comment on above:Ordered: 02/28/2024 End: 81-28-2110GJ ABDOMEN (2 VIEWS)XR ABDOMEN (2 VIEWS) Imaging Routine Daily for 7 Occurrences starting 09/04/2022 until 09/10/2022, 3 completedBON PortafareComment on above:Daily for 7 Occurrences starting 09/04/2022 until 09/10/2022, 3 completed End: 14-45-0498BU Abdomen Single viewXR ABDOMEN (KUB) (SINGLE AP VIEW) Imaging Routine Daily for 7 Occurrences starting 08/19/2024 until08/25/2024, 3 completed [facility] Document AgilityComGloNav on above:Daily for 7 Occurrences starting 08/19/2024 until 08/25/2024, 3 completed Immunizations Immunization DateImmunizationNotesCare HjkruegyDmatuwlv20-71-8795coijwnirkb skin test; purified protein derivative solution, intradermalLisa Lulú RUIZ Work Phone: [facility] Fiphgmvubg43-41-9395tyucppfnqd skin test; unspecified formulationEdilma Eastman MD Work Phone: [facility] HospitalKpflhi93-48-3747okubiuuayl skin test; purified protein derivative solution, intradermalLisa Aichholz PRODUCTION WOOD CRAFTSMAN Work Phone: [facility] HospitalBltguchcwk72-41-1631sfhgjquzay skin test; unspecified formulationEdilma Eastman MD Work Phone: [facility] HospitalUifgpe27-77-9053EZQP-FnQ-1 (COVID-19) mRNA BNT-162b2 vax 1Edilma Eastman MD Work Phone: [facility] on above:Result Comment: 2023-07-31: NNP0146-73-1373Ljiuqe Dimmerling MD Work Phone: [facility] HospitalJertwt21-57-6815forvtpxes virus vaccine, unspecified formulationMonicholas Wolfe MD Work Phone: [facility]02-02-2021Pfizer Romano Cap SARS-CoV-2 VaccinationLisa Aichholz PRODUCTION WOOD CRAFTSMAN Work Phone: [facility] HospitalBcxzduiuzs48-73-2825ORLH-JcT-8 (COVID-19) mRNA BNT-162b2 vax 2Edilma Eastman MD Work Phone: [facility] on above:Result Comment: 2023-07-31: FHI3976-82-3152Ixogat Romano Cap SARS-CoV-2 VaccinationLisa Aichholz PRODUCTION WOOD CRAFTSMAN Work Phone: [facility] HospitalOacjtymkmg50-32-9364LTTM-IrB-3 (COVID-19) mRNA BNT-162b2 vax 3Tradha Eastman MD Work Phone: [facility] on above:Result Comment: 2023-07-31: NXR2735-42-9670buynlcmjaekb polysaccharide vaccine, 23 valentEdilma Eastman MD Work Phone: [facility]10-18-2018influenza, injectable, quadrivalent, preservative freeEdilma Eastman MD Work Phone: [facility] HospitalJecynp03-45-2462kvjnehkpd virus vaccine, unspecified formulationAnna Christine RN Work Phone: [facility]12-13-2017influenza virus vaccine, unspecified formulationEdilma Eastman MD Work Phone: [facility]12-13-2017influenza, injectable, quadrivalent, preservative freeEdilma Eastman MD Work Phone: [facility] HospitalTrqohg14-10-4140pqqrtnvehyij conjugate vaccine, 13 valentTaylblayne Eastman MD Work Phone: [facility]11-12-2016zoster vaccine, liveTaylor Raiza MOELLER Work Phone: [facility]11-12-2016zoster vaccine, unspecified formulationMohamed Eldeedee MOELLER Work Phone: [facility] HospitalHlkoae22-96-1210nkqxyvpdu virus vaccine, unspecified formulationEdilma Eastman MD Work Phone: [facility]10-22-2015influenza, injectable, quadrivalent, preservative freeEdilma Eastman MD Work Phone: [facility] HospitalGueeda38-60-8909mvhnuxkyx virus vaccine, unspecified formulationEdilma Eastman MD Work Phone: [facility]11-12-2014influenza, seasonal, injectableUriylblayne Eastman MD Work Phone: [facility] SystemDlyzqd05-44-5606zyzdvnv toxoid, reduced diphtheria toxoid, and acellular pertussis vaccine, adsorbedEugenia Parkwood HospitalYapspi34-46-2438tctzsoestdna conjugate vaccine, 13 valentEdilma Eastman MD Work Phone: [facility] HospitalQoitiq75-65-2506cnwntxpjfs and tetanus toxoids, adsorbed for pediatric useEdilma Eastman MD Work Phone: [facility]11-12-1975tetanus toxoid, reduced diphtheria toxoid, and acellular pertussis vaccine, adsorbedTabeltran Eastman MD Work Phone: [facility] HospitalYitknb74-47-6350ftspymwev B vaccine, adult dosageEdilma Eastman MD Work Phone: [facility] Payers DatePayer CategoryPayerPolicy [id number] Health Insurance [id number] --Stand AloneDENTAL- MEDICAID [id number] 2019MedicareUHCMedicareUHC MEDICARE UNITEDHEALTHCARE DUAL COMPLETE xxxxxxxxx 2018-Presentxxxxxxxxx [id number] 2019Medicare [id number] 2019Medicare (Managed Care) [id number] 2019Medicare O [employer] [id number] [id number] [id number] 2015Medicaid MEDICAID [place] MEDICAID [facility] DEPT OF JOB xxxxxxxxxxxx 2014-Present [phone] [address] [place], [place] [address]cdkbockaedrp [id number] 2014Medicaid [id number] [id number] 1.2.840.865155.1.13.239.2.7.3.033[id number] 2.16.840.1.655879.3.57[id number] 2.16.840.1.232248.3.57[id number] 2.16.840.1.178816.3.57[id number] 2.16.840.1.457486.3.579.[id number] 2.16.840.1.312430.3.579.2.60335-35-8095Egmtyke43618201 2.16.840.1.479793.3.579.2.33066-38-5191Pcpdvkw15711422 2.16.840.1.963266.3.579.2.67836-98-5431Leqesea53067255 2.16.840.1.849635.3.579.2.22973-74-2257Dtdxrvt560142744 2.16.840.1.929292.3.579.2.78791-13-2847Gpihspz407565940 2.16.840.1.285123.3.579.2.[id number] 2.16.840.1.085688.3.579.2.79895-53-8862Jvpxyir134515104 2.16.840.1.344776.3.579.2.300576-53-5568Xtthlqv46370105 2.16.840.1.562697.3.579.2.450616-04-9539Yyjbzgs09345906 2.16.840.1.219807.3.57[id number] 2.16.840.1.266345.3.579.2.896066-69-1088Fewpigx2046382 2.16.840.1.925219.3.579.2.593403-03-6746Tjmxtka8509375 2.16.840.1.831805.3.579.2.761210-41-3668Nmqdfne7477447 2.16.840.1.895218.3.579.2.903249-67-3628Pkeynby8201858 2.16.840.1.755496.3.579.2.004344-82-5749Hqancur7988316 2.16.840.1.422297.3.579.2.636117-03-3044Ndvpmhw56622407 2.16.840.1.438021.3.579.2.43512-55-1118Gmgckvx94366206 2.16.840.1.682773.3.579.2.72397-84-9354Tdowbps45825497 2..840.1.271126.3.579.2.34020-16-2645Dntzhtt11868937 2..840.1.120535.3.579.2.72474-22-8379Erkuwrc03563647 2.840.1.362179.3.579.2.74123-88-8896Uneaumo48627117 2.840.1.359335.3.579.2.64717-89-5972Ehthwbo13050636 2..840.1.739530.3.579.2.70595-94-6131Nuuounu86668183 2.840.1.594916.3.579.2.84848-99-3538Dtxdpni55537571 2..840.1.913131.3.579.2.71205-59-3777Jpqhvps70368875 2..840.1.444046.3.579.2.11122-04-8261Xdarupo98751147 2..840.1.070354.3.579.2.41633-31-1985Dwvgmzp44616171 2..840.1.172360.3.579.2.05758-52-9301Qwqpjcp71324574 2.16.840.1.840164.3.579.2.37850-52-0642Udhexbo47264792 2..840.1.427610.3.579.2.98791-04-3840Rksofvy95325555 2.16.840.1.296323.3.579.2.78860-29-8503Lnjewpj22481268 2..840.1.764087.3.579.2.45537-30-2927Dhyhevj95397268 2..840.1.307704.3.579.2.02675-60-8922Dpndunf46272702 2..840.1.792209.3.579.2.00692-42-3041Qbpmlrv07452033 2.840.1.276394.3.579.2.47054-48-4547Ctxfnbx581385506 2..840.1.358773.3.579.2.536539-83-6971Vfnnxyc187805652 2..840.1.896126.3.579.2.716186-81-0618Gwdhdqx488818208 2..840.1.661614.3.579.2.423182-52-0301Iplhmkp215444780 2.840.1.233824.3.579.2.011300-79-1721Lvylqif970644085 2..840.1.791818.3.579.2.621308-98-0721Axhjazq820161812 2..840.1.194784.3.579.2.915155-63-6228Xyvjeld404553126 2..840.1.336590.3.579.2.375998-73-8530Etvahjt109058610 2.16.840.1.684177.3.579.2.595819-73-0705Jxyyolv828205677 2..840.1.474737.3.579.2.356334-86-8261Vmfnrjk497923184 2..840.1.622708.3.579.2.904002-89-3479Tyjchjx971241421 2.0.1.103398.3.579.2.13[id number] 2.840.1.359[id number] Social History DateTypeDetailFacilityStart: 12-14-2015 End: 15-78-4830Rwvirfq smoking status NHISNever [facility]: 12-14-2015 End: 50-42-9062Tqkzyay intakeC[facility]: 65-36-2398Lhg Assigned At BirthNot on [facility]: 12-14-2015 End: 60-16-1167Dskskoo intakeCurrent non-drinker of alcohol (finding)[place]: 16-11-2903Ejgpzaz smoking statusNeNewark Hospitaltart: 08-31-2021 End: 20-67-2340Okjvrzjp to SARS-CoV-2 (event)Unable to assessCJW MEDICAL CENTERStart: 04-28-2022 End: 17-76-3690Ryyaytib to SARS-CoV-2 (event)Not sureCJW MEDICAL CENTER Start: 92-18-1572Hjipexu SDOH Alcohol Xfqeaoxjq4GWV [facility]Start: 54-98-0729Ivbwjwa SDOH Alcohol Std Rtxral3UGHCJW MEDICAL CENTERStart: 04-25-2023 End: 87-37-1197Kypnkzn of Social functionBON [facility] TRUM[facility]ULLHas the electric, gas, oil, or water company threatened to shut off services in your home in past 12MoNoBON [facility]ULLHow often to you have a drink containing alcohol?NeverBON Portafare(I/We) worried whether (my/our) food would run out before (I/we) got money to buy more.Never trueBON PortafareStart: 02-14-2017 End: 10-45-8748Ohyglbz use and exposureSmokeless tobacco non-userProMedica Health SystemTobacco smoking status NHISTobacco smoking consumption unknown [facility]Start: 10-08-2014 End: 05-95-5767HfgZlox (finding)MetroHealthSexual OrientationExecutive [facility]rology of [facility] Medical Equipment Procedure CodeEquipment CodeEquipment Original TextEquipment IdentifierDatesFDA Start: 38-58-7014SERKvbsd: 61-62-7502AKPJxiyz: 42-07-9693FAYNmvoe: 70-16-4950GFD Start: 35-41-6287ATIPMFKBEA EXPLORATORY Henrry MOELLER, Kari Mccollum 06/14/21 Unknown AbdomenFDAStart: 93-32-8281JVMQCXUAHA EXPLORATORY Henrry MOELLER, Kari Mccollum 06/14/21 Unknown AbdomenFDAStart: 25-34-4272AYLGRNVAZT EXPLORATORY Henrry MOELLER, Kari Mccollum 06/14/21 Unknown AbdomenFDAStart: 46-62-9480NMXNCUNHCL EXPLORATORY Henrry MOELLER, Kari Mccollum 06/14/21 Unknown AbdomenFDAStart: 34-21-7433SGSSZYYTKA EXPLORATORY Henrry MOELLER, Kari Mccollum 06/14/21 Unknown AbdomenFDAStart: 66-69-2581XQBNVDHOZM EXPLORATORY Henrry MOELLER, Kari Mccollum 06/14/21 Unknown AbdomenFDAStart: 57-32-9570JNOMCRCRSV EXPLORATORY Henrry MOELLER, Kari Mccollum 06/14/21 Unknown AbdomenFDAStart: 90-91-2110739207_dewYodip: 61-29-2903CYLLPBLOWG EXPLORATORY Henrry MOELLER, Kari Mccollum 06/14/21 Unknown AbdomenFDAStart: 56-10-7487KIQQEWTXEB EXPLORATORY Henrry MOELLER, Kari Mccollum 06/14/21 Unknown AbdomenFDAStart: 68-27-5972DZZUJYHGWU EXPLORATORY Henrry MOELLER, Kari C. 06/14/21 Unknown AbdomenFDAStart: 06-14-2021 Goals DatePatient GoalDesired Activity/StatePersonal health goalComment on above: Evaluation of progress towards goal: Patient sister stated back to [facility]. Personal health goalComment on above: Evaluation of progress towards goal: Return to group homePersonal health goal Comment on above: Patient's guardian/sister Susan would like patient to return to [facility] after discharge.Personal health goalComment on above: Evaluation of progress towards goal: Per legal guardian and sister patient is planned [facility] Comment on above: Evaluation of progress towards goal: Patient will return to [facility] Functional Status UqpmRkjmprurafUefcyuRrvlhggr43-66-2227Kjkpu score [AUDIT-C]-1 10/14/2024 3:47 PM EDT [facility] Corporation of AmericaVauwqf51-17-8642Ycibjkjigy StatusN/A [facility]05-28-2024Functional StatusN/AExec[facility]09-06-2023 [facility] StatusNoDay[facility]09-06-2023Functional Status [facility]04-22-2023Functional StatusN/[facility]06-30-2022Functional StatusN/[facility] 12-52-3897Gfg you deaf, or do you have serious difficulty hearingNo 11/29/2018 2:37 PM EDT Ethan Bowers RN [facility] HealthcareHntotq28-50-9834Dxb you blind, or do you have serious difficulty seeing, even when wearing glassesNo 11/29/2018 2:37 PM EDT Ethan Bowers RN [facility]09-27-2019Do you have serious difficulty walking or climbing stairsYes 11/29/2018 2:37 PM Ethan Connor RN [facility]09-27-2019Do you have difficulty dressing or bathingYes 11/29/2018 2:37 PM Etahn Connor RN [facility]-FairhillIlzkzv20-14-6204Okoceqa of a physical, mental, or emotional condition, do you have difficulty doing errands alone such as visiting a physician's office or shoppingYes 11/29/2018 2:37 PM Ethan Connor RN [facility] Mental Status ZpnuVhxxhsaqamLrkfnmDqitpmsr78-79-9010Knrjuxx of a physical, mental, or emotional condition, do you have serious difficulty concentrating, remembering, or making decisionsYes 11/29/2018 2:37 PM Ethan Connor RN [facility] Clinical Notes 10-19-2013 to 01-14-2025 Note Date & LdmqBanaTogkthlf97-52-3724 Miscellaneous Notes* Telephone Encounter - Ellen Meade CMA - 01/14/2025 7:19 AM EST ----- Message from Irwin Ge DO sent at 01/14/2025 7:19 AM EST ----- Please call patient's caregiver and let him know that he had low-grade gastroesophagitis. He shouldcontinue to take the pantoprazole 40 mg p.o. daily as prescribed. ThanksDr. Diamond ----- Message ----- From: Lab, Background User Sent: 01/13/2025 1:52 PM EST To: Irwin Ge DO * Telephone Encounter - Ellen Meade CMA - 01/14/2025 7:19 AM EST Spoke with patient's caregiver Victorina at [facility] regarding pathology results. Victorina verbally understood with no further questions. Will fax results to Victorina for patient's chart at facility. Fax number received. documented in this encounterGre[facility]11-12-2025 Telephone encounter Note* Telephone Encounter - Ellen Meaed CMA - 01/14/2025 7:19 AM EST ----- Message from Irwin Ge DO sent at 01/14/2025 7:19 AM EST ----- Please call patient's caregiver and let him know that he had low-grade gastroesophagitis. He shouldcontinue to take the pantoprazole 40 mg p.o. daily as prescribed. Thanks, Dr. Diamond ----- Message ----- From: Lab, Background User Sent: 01/13/2025 1:52 PM EST To: Irwin Ge DO [facility]11-12-2025 Telephone encounter Note* Telephone Encounter - Ellen Meade CMA - 01/14/2025 7:19 AM EST Spoke with patient's caregiver Victorina at [facility] regarding pathology results. Victorina verbally understood with no further questions. Will fax results to Victorina for patient's chart at facility. Fax number received. [facility]11-06-2025 Nurse Note* Kulwinder Teran RN - 01/08/2025 6:22 PM EST Patient is stable. GI issues solved. Legal guardian Susan notified he is returning to [facility]. He is stable and being transported by [facility] transport. @ attempts have been made to contact [facility] for report. No return call. [facility]11-06-2025 Nurse Note* Kulwinder Teran RN - 01/08/2025 6:22 PM EST Patient is stable. GI issues solved. Legal guardian Susan notified he is returning to [facility]. He is stable and being transported by [facility] transport. @ attempts have been made to contact [facility] for report. No return call. * Nola Solo RN - 01/07/2025 6:02 AM EST 2 attempts were made to draw blood from pt's midline and blood could not be drawn. documented in this encounterGreene Memorial Hospital11-06-2025 Plan of care note * Plan of Care - Kulwinder Teran RN - 01/08/2025 10:38 AM EST Problem: Potential for Compromised Skin Integrity Goal: Skin integrity is maintained or improved Description: Patient's goal is: INTERVENTIONS 1. Perform initial skin assessment on admission and as needed 2. Turn patient every 2 hours and PRN 3. Relieve pressure to bony prominences 4. Avoid shearing 5. Keep skin clean and dry 6. Alternate a full bath with partial baths for elderly 7. Apply lotion/moisturizer on skin 8. Monitor patient's hygiene practices 9. Float heels 10. Collaborate with interdisciplinary team and initiate plans and interventions as needed Outcome: Progressing Note: Evaluation of progress towards goal: Patient has no skin issues Goal: Patient's nutritional intake is adequate Description: [...] supplement as ordered 13. Collaborate with clinical movie shot cameraman 14. Include patient/ patient's mortician supplies sales representative in decisions related to nutrition Outcome: Progressing Note: Evaluation of progress towards goal: Patient eats 100% of all meals Problem: Urinary Incontinence Goal: Perineal skin integrity [...] Progressing Note: Evaluation of progress towards goal: No skin issues Problem: Pain Goal: Patient goal is pain score less than 4, able to rest, and participant in treatment plan as appropriate Description: INTERVENTIONS: 1. Encourage patient or legal mortician supplies sales representative to report early pain and ask [...] per policy 9. Teach patient or legal mortician supplies sales representative interventions for comforting Outcome: Progressing Note: Evaluation of progress towards goal: Patient denies pain Problem: Safety Goal: Patient will be injury free during hospitalization Description: INTERVENTIONS: 1. Assess patient's risk for falls and implement fall prevention plan of care per policy 2. Provide and maintain a safe environment 3. Proper use of double Identifiers 4. Medication administration using the 5 rights 5. Hand hygiene 6. Specimens are labeled at the bedside 7. Instruct patient/ patient mortician supplies sales representative about use of safety devices 8. Include patient/ patient mortician supplies sales representative in decisions related to safety Outcome: Progressing Note: Evaluation of progress towards goal: Patient uses call light for safety Problem: Safety Goal: Patient will be injury free during hospitalization Description: INTERVENTIONS: 1. Assess patient's risk for falls and implement fall prevention plan of care per policy 2. Provide and maintain a safe environment 3. Proper use of double Identifiers 4. Medication administration using the 5 rights 5. Hand hygiene 6. Specimens are labeled at the bedside 7. Instruct patient/ patient mortician supplies sales representative about use of safety devices 8. Include patient/ patient mortician supplies sales representative in decisions related to safety Outcome: Progressing Note: Evaluation of progress towards goal: Patient uses call light for safety Problem: Infection Goal: Absence of infection during hospitalization Description: INTERVENTIONS 1. Assess and monitor for signs and symptoms of infection. 2. Monitor lab/diagnostic results. 3. Monitor all insertion sites i.e., indwelling lines, tubes and drains. 4. Monitor endotracheal (as able) and nasal secretions for changes in amount and color. 5. Administer medications as ordered. 6. Instruct and encourage patient and family to use good hand hygiene technique. 7. Identify and instruct patient/patient mortician supplies sales representative in use of appropriate isolation precautionsfor identified infection/symptoms. 8. Provide and discuss with patient/patient mortician supplies sales representative on educational MDRO sheet. 9. Encourage and monitor nutritional status daily and consult movie shot cameraman if indicated. 10. Implement neutropenic guidelines as needed. Outcome: Progressing Note: Evaluation of progress towards goal: No signs of infection can be found Problem: Discharge Planning Goal: Discharge to post-acute [...] Progressing Note: Evaluation of progress towards goal: Case management has eval Problem: Moderate - High Risk Fall Score Description: [place] Fall Score of =/> 25 or indicated by [facility] Assessment Goal: Patient should be free from fall Description: Interventions: 1. [place] to environment 2. Hourly rounds addressing the [...] non-skid footwear 11. Teach patient and patient mortician supplies sales representative to maintain environment for safety and [...] (cane, walker) within reach 19. Request patient mortician supplies sales representative bring adaptive equipment/mobility aids from home or obtain and provide as needed 20. Consult pharmacy regarding effects of med's affecting mobility, cognition, and alternatives 21. Obtain physician order for PT if risk factors associated with mobility are present 22. Obtain physician order for OT as appropriate 23. Utilize diversional activities 24. Educate patient and patient mortician supplies sales representative how to maintain a safe environment during visitationtimes (notify nurse prior to leaving bedside) 25. Consider appropriateness of medical or non-lead medical technologist 26. Set up voiding schedule as appropriate (every 2 hours) Outcome: Progressing Note: Evaluation of progress towards goal: No falls at this time [facility]11-06-2025 Miscellaneous Notes* Plan of Care - Kulwinder Teran RN - 01/08/2025 10:38 AM EST Problem: Potential for Compromised Skin Integrity Goal: Skin integrity is maintained or improved Description: Patient's goal is: INTERVENTIONS 1. Perform initial skin assessment on admission and as needed 2. Turn patient every 2 hours and PRN 3. Relieve pressure to bony prominences 4. Avoid shearing 5. Keep skin clean and dry 6. Alternate a full bath with partial baths for elderly 7. Apply lotion/moisturizer on skin 8. Monitor patient's hygiene practices 9. Float heels 10. Collaborate with interdisciplinary team and initiate plans and interventions as needed Outcome: Progressing Note: Evaluation of progress towards goal: Patient has no skin issues Goal: Patient's nutritional intake is adequate Description: [...] supplement as ordered 13. Collaborate with clinical movie shot cameraman 14. Include patient/ patient's mortician supplies sales representative in decisions related to nutrition Outcome: Progressing Note: Evaluation of progress towards goal: Patient eats 100% of all meals Problem: Urinary Incontinence Goal: Perineal skin integrity [...] Progressing Note: Evaluation of progress towards goal: No skin issues Problem: Pain Goal: Patient goal is pain score less than 4, able to rest, and participant in treatment plan as appropriate Description: INTERVENTIONS: 1. Encourage patient or legal mortician supplies sales representative to report early pain and ask [...] per policy 9. Teach patient or legal mortician supplies sales representative interventions for comforting Outcome: Progressing Note: Evaluation of progress towards goal: Patient denies pain Problem: Safety Goal: Patient will be injury free during hospitalization Description: INTERVENTIONS: 1. Assess patient's risk for falls and implement fall prevention plan of care per policy 2. Provide and maintain a safe environment 3. Proper use of double Identifiers 4. Medication administration using the 5 rights 5. Hand hygiene 6. Specimens are labeled at the bedside 7. Instruct patient/ patient mortician supplies sales representative about use of safety devices 8. Include patient/ patient mortician supplies sales representative in decisions related to safety Outcome: Progressing Note: Evaluation of progress towards goal: Patient uses call light for safety Problem: Safety Goal: Patient will be injury free during hospitalization Description: INTERVENTIONS: 1. Assess patient's risk for falls and implement fall prevention plan of care per policy 2. Provide and maintain a safe environment 3. Proper use of double Identifiers 4. Medication administration using the 5 rights 5. Hand hygiene 6. Specimens are labeled at the bedside 7. Instruct patient/ patient mortician supplies sales representative about use of safety devices 8. Include patient/ patient mortician supplies sales representative in decisions related to safety Outcome: Progressing Note: Evaluation of progress towards goal: Patient uses call light for safety Problem: Infection Goal: Absence of infection during hospitalization Description: INTERVENTIONS 1. Assess and monitor for signs and symptoms of infection. 2. Monitor lab/diagnostic results. 3. Monitor all insertion sites i.e., indwelling lines, tubes and drains. 4. Monitor endotracheal (as able) and nasal secretions for changes in amount and color. 5. Administer medications as ordered. 6. Instruct and encourage patient and family to use good hand hygiene technique. 7. Identify and instruct patient/patient mortician supplies sales representative in use of appropriate isolation precautionsfor identified infection/symptoms. 8. Provide and discuss with patient/patient mortician supplies sales representative on educational MDRO sheet. 9. Encourage and monitor nutritional status daily and consult movie shot cameraman if indicated. 10. Implement neutropenic guidelines as needed. Outcome: Progressing Note: Evaluation of progress towards goal: No signs of infection can be found Problem: Discharge Planning Goal: Discharge to post-acute [...] Progressing Note: Evaluation of progress towards goal: Case management has eval Problem: Moderate - High Risk Fall Score Description: [place] Fall Score of =/> 25 or indicated by [facility] Assessment Goal: Patient should be free from fall Description: Interventions: 1. [place] to environment 2. Hourly rounds addressing the [...] non-skid footwear 11. Teach patient and patient mortician supplies sales representative to maintain environment for safety and [...] (cane, walker) within reach 19. Request patient mortician supplies sales representative bring adaptive equipment/mobility aids from home or obtain and provide as needed 20. Consult pharmacy regarding effects of med's affecting mobility, cognition, and alternatives 21. Obtain physician order for PT if risk factors associated with mobility are present 22. Obtain physician order for OT as appropriate 23. Utilize diversional activities 24. Educate patient and patient mortician supplies sales representative how to maintain a safe environment during visitationtimes (notify nurse prior to leaving bedside) 25. Consider appropriateness of medical or non-lead medical technologist 26. Set up voiding schedule as appropriate (every 2 hours) Outcome: Progressing Note: Evaluation of progress towards goal: No falls at this time * Discharge Planning Note - KRYSTIN Acuña - 01/08/2025 8:50 AM EST DISCHARGE PLANNING NOTE Possible discharge back to [facility] today. Patient Discharge Plan: Return to [facility]. Please call legal guardian/sister with discharge information: Susan Smith- [phone] Please notify caregivers at [facility] at time of discharge. P: [phone] Dior on 01/13/2025 at 11:30 am. - KRYSTIN Acuña 01/08/25 8:50 AM * Plan of Care - Brittny Ruby RN - 01/08/2025 3:36 AM EST Problem: Safety Goal: Patient will be injury free during hospitalization Description: INTERVENTIONS: 1. Assess patient's risk for falls and implement fall prevention plan of care per policy 2. Provide and maintain a safe environment 3. Proper use of double Identifiers 4. Medication administration using the 5 rights 5. Hand hygiene 6. Specimens are labeled at the bedside 7. Instruct patient/ patient mortician supplies sales representative about use of safety devices 8. Include patient/ patient mortician supplies sales representative in decisions related to safety Outcome: Progressing Note: Evaluation of progress towards goal: Able to ambulate In and Out of the bed with walker and 1assist. No injury/ trauma/ fall. Hourly rounds completed. Problem: Cardiovascular - Adult Goal: Absence of cardiac dysrhythmias or at baseline Description: INTERVENTIONS: 1. Continuous cardiac monitoring, monitor vital signs, obtain 12 lead EKG as ordered 2. Monitor for therapeutic effect/ side effects and safely 3. Administer antiarrhythmic and heart rate control medications as ordered 3. Initiate emergency measures for life threatening arrhythmias 4. Monitor labs and administer replacement/adjust therapy as ordered Outcome: Progressing Note: Evaluation of progress towards goal: EKG - NSR , denies any cardiac related complaints. Problem: Respiratory - Adult Goal: Achieves optimal ventilation and oxygenation Description: Patient's goal is: INTERVENTIONS: 1. Assess for changes in respiratory status 2. Assess for changes in mentation and behavior 3. Position to facilitate oxygenation and minimize respiratory effort 4. Oxygen supplementation based on oxygen saturation or ABGs as ordered 5. Consult smoking cessation as indicated 6. Encourage broncho-pulmonary hygiene including cough, deep breathe, Incentive Spirometry, keep HOB elevated as tolerated, and encourage ambulation, as ordered 7. Assess the need for suctioning and obtain order to maintain clear airway 8. Assess and instruct patient to report SOB or any respiratory difficulty 9. Assess the need for Respiratory Therapy support if not already ordered 10. Initiate emergency measures for respiratory failure Outcome: Progressing Note: Evaluation of progress towards goal: Currently on room air, breath sounds diminished, not in respiratory distress. Problem: Metabolic/Fluid and Electrolytes - Adult Goal: Electrolytes maintained within normal limits Description: INTERVENTIONS 1. Monitor for signs and symptoms of hypovolemia (tachycardia, rapid breathing, decreased urine output, postural hypotension, sunken fontanel) 2. Monitor for signs and symptoms of hypervolemia (strong rapid pulse, rapid breathing, crackles heard in lung matta, edema, decreased urine output, sudden weight gain, distended neck veins in olderchildren, enlarged liver and spleen) 1. Monitor intake and output 2. Monitor pt's weight 1. Monitor labs and assess patient for signs and symptoms of electrolyte imbalances 2. Administer electrolyte replacement as ordered 3. Monitor response to electrolyte replacements, including repeat lab results as appropriate 4. Fluid restriction or hydration as ordered 5. Instruct patient/ legal mortician supplies sales representative on nutrition/diet; fluid/hydration restrictions as appropriate Outcome: Progressing Note: Evaluation of progress towards goal: Mg- 1.7 (Will give 2 gms replacement per order ), recheck morning draw. * PT/OT/REGULATORY ADMINISTRATOR - Татьяна Anthony, JOB MOLDER - 01/07/2025 8:26 AM EST Physical Therapy Treatment Discharge Recommendations for Safe Patient Transition PT Discharge Disposition Recommendation: [facility] (As long as able to provide patient with level of assist required.) PT Therapy Recommendations: Home Physical Therapy Current Impairments Informing Therapy Recommendation: Ambulation status/safety, Cognition, Fall risk, ADL status, Endurance level Frame Gate Mortiser Operator Support for-: Mobility Deficits, ADL Deficits, Cognitive Impairments 6 Clicks: Basic Mobility Turning from your back to your side while in a flat bed without using bed rails?: A little Moving from lying on your back to sitting on side of flat bed without using bed rails?: A little Moving to and from bed to a chair (including w/c)?: A little Standing up from a chair using your arms (e.g. w/c or bedside chair)?: A lot To walk in hospital room?: A lot Climbing 3-5 steps with a railing?: A lot Scoring 6 Clicks: Basic Mobility Raw Score: 15 CMS G Code Modifier: CK PT Treatment/Interventions: Functional transfer training, LE strengthening/ROM, Endurance training,Balance, Bed mobility, Gait training, Functional activities, Neuromuscular reeducation PT Frequency: 2-3days/week PT Duration: 10 days Assessment Patient Assessment Therapy Problem List: Decreased ADL status, Decreased balance, Decreased mobility, Decreased safe judgement during ADL, Decreased self-care trans, Decreased LE ROM, Decreased LE strength Patient Response to Treatment: Slow progress, cognitive deficits Mood/Affect: Impulsive Rehab Prognosis: Fair, Guarded, 24 hour supervision recommended Visit RN Communication: Yes Medical Record Reviewed: Yes PT Type of Visit: Treatment Precautions Activity: Early mobility: pass. Appropriate to tx per Kulwinder BHATT. Equipment: non skid socks, bed and chair alarm, helmet when OOB (Patient refused application of gait belt and use of RW.) Telemetry/Talcer: Yes Oxygen Order : Room air. Other: fall risk, history of MRDD Subjective Physical Therapy Comments: Patient refused application of gait belt and use of RW although encouraged. I'm fine, I'm fine . Pain Assessment Pain Assessment: No/denies pain Hearing / Speech / Vision Hearing: Within Functional Limits Speech: Garbled, Delayed responses (history of MRDD) Current Vision: Other (Comment) (unknown, no glasses noted in room.) Cognition Orientation Level: Oriented to person, Disoriented to situation, Disoriented to place, Disoriented to age Bed Mobility Rolling: Contact guard assist, Left (HOB slightly elevated.) Supine to Sit: Min assist, Left (HOB slightly elevated.) Sit to Supine: Unable to assess (Patient sitting in recliner post therapy session.) Other: Patient performed bed mobility of supine to seated position, min assist. Verbal and tactile cues expressed of body mechanics and use of bedrail to assist in transition ease. Poor patient follow through. Transfers Sit to Stand: Min assist (Patient impulsive with standing and does not allow gait belt to be placed. Declines use of RW although placed in front of patient.) Stand to Sit: Min assist Bed to Chair: Max assist (SPT; poor patient tolerance to standing.) Stand Pivot Transfers: Max assist (Bed to recliner.) Other: Patient performed x3-4 reps, min assist for patient safety. Verbal cues expressed of proper hand placement with patient actively using R UE to assist in transition ease. Posterior lean noted with cues expressed to assist patient in full upright position, poor patient follow through with patient typically returning to seated position following. Heavy SPT completed from bed to recliner surface, patient expressing the nonskid socks are slippery with poor curator of photography and prints causing poor mobility of LE's. Fwd lean evident as performed SPT. Verbal cues expressed throughout transfer for patient participation in SPT. (Educated RNKulwinder on SPT and placing recliner close to bed surface once patient is ready to return to bed.) Gait Other: Not appropriate at this time. Poor standing tolerance with slight posterior lean. Patient very impulsive with poor safety awareness. Max assist required at this time for SPT. Balance Sitting Balance: Static: Fair Sitting Balance: Dynamic: Fair (-) Standing Balance: Static: Poor Standing Balance: Dynamic: Poor Other: Posterior lean evident upon static standing. Increased unsteadiness noted throughout standing, min assist throughout except while performing a SPT with max assist then required. Activity Tolerance Endurance: Tolerates <30 minutes activity WITHOUT vital sign changes Other: Rest breaks required to orient patient to tasks wanting to be performed and safety awareness. Poor standing static activity tolerance of 10-30 intervals x4. 11/05/25 0826 LE Seated LE seated exercises performed? Yes Long arc quads x Seated marching x Other AROM; Patient instructed in LE ther ex program to promote strength and mobility for ease of bed mobility and transfers. Verbal cues with visual demonstration provided of exercise form. Poor full ROM noted throughout exercises although cues expressed. Repetitions 10 x2 Patient sitting upright in recliner; CHAIR ALARM ON; Call light/tray table within reach; Communicated with RN on summary of tx and patient location. Plan Physical Therapy Care Plan Physical Therapy Care Plan (Active) Template: PT - Physical Therapy Problem: Activity Tolerance Dates: Start: 01/06/25 Disciplines: PT Goal: Tolerate 30 minutes of activity WITH rest breaks Dates: Start: 01/06/25 Expected End: 01/15/25 Description: Goal Description: to participate in LE strengthening for increased ease of mobility and reduced caregiver burden. Disciplines: PT Outcomes Date/Time User Outcome 01/07/25 0851 Татьяна Anthony PTA Not Progressing Problem: Bed Mobility Dates: Start: 01/06/25 Disciplines: PT Goal: Patient will perform bed mobility with Minimum Assist Dates: Start: 01/06/25 Expected End: 01/15/25 Description: Goal Description: from head of bed flat, no rail, as per home set-up. Disciplines: PT Outcomes Date/Time User Outcome 01/07/25 0851 Татьяна Anthony PTA Not Progressing Goal Note filed on 01/07/25850 by Татьяна Anthony PTA Min assist. Problem: Sitting Balance Dates: Start: 01/06/25 Disciplines: PT Goal: Improve balance to good Dates: Start: 01/06/25 Expected End: 01/15/25 Description: Dynamic to reduce fall risk during functional mobility. Disciplines: PT Outcomes Date/Time User Outcome 01/07/25 0851 Татьяна Anthony PTA Not Progressing Problem: Transfers Dates: Start: 01/06/25 Disciplines: PT Goal: Patient will perform transfers with Minimum Assist Dates: Start: 01/06/25 Expected End: 01/15/25 Description: Goal Description: with least restrictive device do to improving LE strength. Disciplines: PT Outcomes Date/Time User Outcome 01/07/25 0851 Татьяна Anthony PTA Not Progressing Physical Therapy Care Plan (Resolved) There are no resolved problems. Principal Problem: Vomiting, unspecified vomiting type, unspecified whether nausea present Active Problems: Seizures (CMS-HCC) Mental retardation JOSÉ MIGUEL (acute kidney injury) Metabolic acidosis Hypokalemia Nausea and vomiting Cosigned by Reva Stanley PT at 01/07/2025 1:22 PM EST Associated attestation - Reva Stanley PT - 01/07/2025 1:22 PM EST I have reviewed and agree with this note and education documentation for this visit. * Plan of Care - Nola Solo RN - 01/06/2025 7:37 PM EST Problem: Pain Goal: Patient goal is pain score less than 4, able to rest, and participant in treatment plan as appropriate Description: INTERVENTIONS: 1. Encourage patient or legal mortician supplies sales representative to report early pain and ask [...] per policy 9. Teach patient or legal mortician supplies sales representative interventions for comforting Outcome: Progressing Note: Evaluation of progress towards goal: Pt able to report pain according to 0/10 pain scale. Medicating patient for pain per orders. Problem: Safety Goal: Patient will be injury free during hospitalization Description: INTERVENTIONS: 1. Assess patient's risk for falls and implement fall prevention plan of care per policy 2. Provide and maintain a safe environment 3. Proper use of double Identifiers 4. Medication administration using the 5 rights 5. Hand hygiene 6. Specimens are labeled at the bedside 7. Instruct patient/ patient mortician supplies sales representative about use of safety devices 8. Include patient/ patient mortician supplies sales representative in decisions related to safety Outcome: Progressing Note: Evaluation of progress towards goal: Pt's risk for falls assessed and fall prevention implemented as needed, safe environment provided and maintained, hand hygiene completed. * Significant Event - Radha Fernandes RN - 01/06/2025 6:07 PM EST Unable to draw off of patient's midline. Lab was notified to try and collect off of patient. * Significant Event - Radha Fernandes RN - 01/06/2025 6:05 PM EST Patient declined the RN to perform VS at this time. Patient is at baseline mentation and cooperative. He just wants food. Patient's food had just arrived at the bedside * PT/OT/REGULATORY ADMINISTRATOR - Niurka Gonzalez OTR/L - 01/06/2025 2:35 PM EST Occupational Therapy Evaluation (Completed with PT in order to maximize patient's functional status) Discharge Recommendations for Safe Patient Transition OT Discharge Disposition Recommendation: [facility] (return [facility] as long as they can provide the assist that pt requires.) OT Therapy Recommendations: Home Occupational Therapy Current Impairments Informing Therapy Recommendation: Ambulation status/safety, Cognition, Fall risk, ADL status, Endurance level Frame Gate Mortiser Operator Support for-: Mobility Deficits, ADL Deficits, Cognitive Impairments Therapy Plan Need for skilled Occupational Therapy to address deficits in ADL independence and functional mobility due to a status decline resulting from vomiting, possible SBO. A high complex eval was completed. Past Surgical History: Procedure Laterality Date CLAVICLE SURGERY COLONOSCOPY CYSTOCELE REPAIR 2016 EXCHANGE STIMULATOR BATTERY VAGAL NERVE N/A 03/23/2020 Performed by Nicola Mahan MD at [facility] 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 2004 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 REPAIR 7 months old SMALL INTESTINE SURGERY 1985, 1992, 1993 s/p diverticulitis; bowel obstruction x 2 Past Medical History: Diagnosis Date Abdominal hernia large but surgical risk Abnormal result of iron profile testing chronic ds Allergic Allergic rhinitis Balance problem falls with several fx// wears helment for protection Bowel obstruction ([facility]) 2016 and Oct BPH (benign prostatic hyperplasia) sees urology 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) // has a VNS implant which decreased grand mal seizures/ jerking episod weekly Uninodular goiter Urine incontinence OT Treatment/Interventions: ADL retraining, Functional transfer training, UE strengthening/ROM, Endurance training, Cognitive reorientation, Patient/family training, Equipment eval/education, Balance, Home management, Compensatory technique education, Functional activities OT Frequency: 1-2days/week OT Duration: 10 days Assessment Patient Assessment Patient Response to Treatment: Tolerated evaluation without adverse reaction Mood/Affect: Appropriate for circumstances Rehab Prognosis: Fair, Guarded, 24 hour supervision recommended Visit RN Communication: Yes Medical Record Reviewed: Yes OT Type of Visit: Evaluation (Completed with PT in order to maximize patient's functional status) Precautions Activity: OK to eval per Radha BHATT Equipment: non skid socks, bed and chair alarm, helmet when OOB Telemetry/Talcer: No Oxygen Order : room air Other: fall risk, history of MRDD Pain Assessment Pain Assessment: No/denies pain Home Living Type of Home: Other (Comment) ([facility], [facility] per chart review) Prior Function Lives With: Other (Comment) (lives in a [facility]) Receives Help From: Other (Comment) (staff at [facility]) Other: prior level of function known ADL / IADL Eating Assistance: Mod assist Grooming Assistance: Mod assist Bathing/Showering Assistance: Total assist Toilet/Commode Assistance: Total assist UE Dressing Assistance: Mod assist LE Dressing Assistance: Total assist Footwear Assistance: Total assist Footwear Deficit: R sock, L sock (does not like socks on) Other: upon arrival RN and PCT assiting patient with sponge bath, assisted to change brief, linen, apply lotion to LE's while supine. once seated on EOB total assist to don helmet, but pt is able to dof with supervision Home Management - IADL Other: upon arrival RN and PCT assiting patient with sponge bath, assisted to change brief, linen, apply lotion to LE's while supine. once seated on EOB total assist to don helmet, but pt is able to dof with supervision Hearing / Speech / Vision Hearing: Within Functional Limits Speech: Garbled, Delayed responses (history of MRDD) Current Vision: (unknonwn) Cognition Orientation Level: Oriented to person Bed Mobility Rolling: Contact guard assist Supine to Sit: Min assist, Verbal cues Other: remains in chair at end of session Transfers Sit to Stand: Min assist (hand held assist) Stand to Sit: Min assist (hand held assist) Bed to Chair: Min assist (hand held assist) Other: completes sit to stand times 1 trial and then immediately sits down, 2nd trial hold therapists hand and then is able to transfer to to the chair with min assist Balance Sitting Balance: Static: Good Sitting Balance: Dynamic: Fair, Poor Standing Balance: Static: Fair, Poor Standing Balance: Dynamic: Poor RUE Assessment: (flexion contracture of hand) LUE Assessment: (flexion contracture of hand able to demo extension of digits spontaneously) Activity Tolerance Endurance: Tolerates <30 minutes activity WITHOUT vital sign changes Plan Occupational Therapy Care Plan Occupational Therapy Care Plan (Active) Template: OT - Occupational Therapy Problem: Activity Tolerance Dates: Start: 01/06/25 Disciplines: OT Goal: Tolerate > 30 minutes of activity WITH rest breaks Dates: Start: 01/06/25 Expected End: 01/15/25 Description: Goal Description:patient to engage in activities of choice with out changes in vitals in order to promote return to prior level of function Disciplines: OT Problem: Other (Customize) Dates: Start: 01/06/25 Disciplines: OT Goal: Improve Dates: Start: 01/06/25 Expected End: 01/15/25 Description: Goal Description:Patient to increase IND in ADls to mod assist in order to promote return to prior level of function Disciplines: OT Problem: Standing Balance Dates: Start: 01/06/25 Disciplines: OT Goal: Improve balance to good Dates: Start: 01/06/25 Expected End: 01/15/25 Description: Patient to increase standing balance to good in order to increase IND in ADLS and lower body dressing tasks Disciplines: OT Occupational Therapy Care Plan (Resolved) There are no resolved problems. Principal Problem: Vomiting, unspecified vomiting type, unspecified whether nausea present Active Problems: Seizures (CMS-HCC) Mental retardation JOSÉ MIGUEL (acute kidney injury) Metabolic acidosis Hypokalemia Nausea and vomiting * Plan of Care - Radha Fernandes RN - 01/06/2025 12:03 PM EST Problem: Potential for Compromised Skin Integrity Goal: Patient's nutritional intake is adequate Description: [...] supplement as ordered 13. Collaborate with clinical movie shot cameraman 14. Include patient/ patient's mortician supplies sales representative in decisions related to nutrition Outcome: Not Progressing Note: Evaluation of progress towards goal: Patient understands the importance of proper nutrition to aid in healing. Problem: Moderate - High Risk Fall Score Description: [place] Fall Score of =/> 25 or indicated by [facility] Assessment Goal: Patient should be free from fall Description: Interventions: 1. [place] to environment 2. Hourly rounds addressing the [...] non-skid footwear 11. Teach patient and patient mortician supplies sales representative to maintain environment for safety and [...] (cane, walker) within reach 19. Request patient mortician supplies sales representative bring adaptive equipment/mobility aids from home or obtain and provide as needed 20. Consult pharmacy regarding effects of med's affecting mobility, cognition, and alternatives 21. Obtain physician order for PT if risk factors associated with mobility are present 22. Obtain physician order for OT as appropriate 23. Utilize diversional activities 24. Educate patient and patient mortician supplies sales representative how to maintain a safe environment during visitationtimes (notify nurse prior to leaving bedside) 25. Consider appropriateness of medical or non-lead medical technologist 26. Set up voiding schedule as appropriate (every 2 hours) Outcome: Not Progressing Note: Evaluation of progress towards goal: Pt's risk for falls assessed and fall prevention implemented as needed, safe environment provided and maintained, hand hygiene completed. Problem: Potential for Compromised Skin Integrity Goal: Skin integrity is maintained or improved Description: Patient's goal is: INTERVENTIONS 1. Perform initial skin assessment on admission and as needed 2. Turn patient every 2 hours and PRN 3. Relieve pressure to bony prominences 4. Avoid shearing 5. Keep skin clean and dry 6. Alternate a full bath with partial baths for elderly 7. Apply lotion/moisturizer on skin 8. Monitor patient's hygiene practices 9. Float heels 10. Collaborate with interdisciplinary team and initiate plans and interventions as needed Outcome: Progressing Note: Evaluation of progress towards goal: Pt skin is clean and dry, skin assessed and monitored for new areas, shearing avoided. Problem: Urinary Incontinence Goal: Perineal skin integrity [...] Progressing Note: Evaluation of progress towards goal: Perineal skin kept clean and dry, privacy provided as needed, skin protectant applied as needed, labs monitored. Problem: Pain Goal: Patient goal is pain score less than 4, able to rest, and participant in treatment plan as appropriate Description: INTERVENTIONS: 1. Encourage patient or legal mortician supplies sales representative to report early pain and ask [...] per policy 9. Teach patient or legal mortician supplies sales representative interventions for comforting Outcome: Progressing Note: Evaluation of progress towards goal: Pt able to report pain according to 0/10 pain scale. Medicating patient for pain per orders. Problem: Safety Goal: Patient will be injury free during hospitalization Description: INTERVENTIONS: 1. Assess patient's risk for falls and implement fall prevention plan of care per policy 2. Provide and maintain a safe environment 3. Proper use of double Identifiers 4. Medication administration using the 5 rights 5. Hand hygiene 6. Specimens are labeled at the bedside 7. Instruct patient/ patient mortician supplies sales representative about use of safety devices 8. Include patient/ patient mortician supplies sales representative in decisions related to safety Outcome: Progressing Note: Evaluation of progress towards goal: Pt's risk for falls assessed and fall prevention implemented as needed, safe environment provided and maintained, hand hygiene completed. Problem: Infection Goal: Absence of infection during hospitalization Description: INTERVENTIONS 1. Assess and monitor for signs and symptoms of infection. 2. Monitor lab/diagnostic results. 3. Monitor all insertion sites i.e., indwelling lines, tubes and drains. 4. Monitor endotracheal (as able) and nasal secretions for changes in amount and color. 5. Administer medications as ordered. 6. Instruct and encourage patient and family to use good hand hygiene technique. 7. Identify and instruct patient/patient mortician supplies sales representative in use of appropriate isolation precautionsfor identified infection/symptoms. 8. Provide and discuss with patient/patient mortician supplies sales representative on educational MDRO sheet. 9. Encourage and monitor nutritional status daily and consult movie shot cameraman if indicated. 10. Implement neutropenic guidelines as needed. Outcome: Progressing Note: Evaluation of progress towards goal: Patient VS WNL, remains afebrile for shift. Continue to monitor. Problem: Discharge Planning Goal: Discharge to post-acute [...] Evaluation of progress towards goal: Continue to assess for when appropriate. Problem: Knowledge Deficit Goal: Patient/patient mortician supplies sales representative demonstrates understanding of disease process, treatment plan,medications, and discharge instructions Description: INTERVENTIONS 1. Complete learning assessment and assess knowledge base 2. Provide teaching at level of understanding 3. Provide teaching via preferred learning method(s) Outcome: Completed Note: Evaluation of progress towards goal: Baseline mentation. * PT/OT/REGULATORY ADMINISTRATOR - Reva Stanley, PT - 01/06/2025 11:06 AM EST Physical Therapy Evaluation (Performed wiht OT to maximize functional mobility outcomes and improve patient activitytolerance post EGD.) Discharge Recommendations for Safe Patient Transition PT Discharge Disposition Recommendation: [facility] (As long as able to provide patient with level of assist required.) PT Therapy Recommendations: Home Physical Therapy Current Impairments Informing Therapy Recommendation: Ambulation status/safety, Cognition, Fall risk, ADL status, Endurance level Frame Gate Mortiser Operator Support for-: Mobility Deficits, ADL Deficits, Cognitive Impairments 6 Clicks: Basic Mobility Turning from your back to your side while in a flat bed without using bed rails?: A little Moving from lying on your back to sitting on side of flat bed without using bed rails?: A little Moving to and from bed to a chair (including w/c)?: A little Standing up from a chair using your arms (e.g. w/c or bedside chair)?: A little To walk in hospital room?: A lot Climbing 3-5 steps with a railing?: A lot Scoring 6 Clicks: Basic Mobility Raw Score: 16 [facility] G Code Modifier: CK Therapy Plan Need for skilled Physical Therapy to address deficits in functional mobility due to a status decline resulting from nausea, vomiting, suspected ileus. PT Treatment/Interventions: Functional transfer training, LE strengthening/ROM, Endurance training,Balance, Bed mobility, Gait training, Functional activities, Neuromuscular reeducation PT Frequency: 2-3days/week PT Duration: 10 days Assessment Patient Assessment Therapy Problem List: Decreased ADL status, Decreased balance, Decreased mobility, Decreased safe judgement during ADL, Decreased self-care trans, Decreased LE ROM, Decreased LE strength Patient Response to Treatment: Tolerated evaluation without adverse reaction Mood/Affect: Appropriate for circumstances Rehab Prognosis: Fair, Guarded, 24 hour supervision recommended Visit RN Communication: Yes Medical Record Reviewed: Yes PT Type of Visit: Evaluation (Performed wiht OT to maximize functional mobility outcomes and improve patient activity tolerance post EGD.) Past Medical History: Diagnosis Date Abdominal hernia large but surgical risk Abnormal result of iron profile testing chronic ds Allergic Allergic rhinitis Balance problem falls with several fx// wears helment for protection Bowel obstruction ([facility]) 2016 and Oct BPH (benign prostatic hyperplasia) sees urology 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, lt vision loss with some recovery, seizures Obesity with diet pt lost some wt Osteoarthritis Osteopenia dexa 2018 hip -1.7 Pneumonia Seborrheic dermatitis Seizures ([facility]) grand mal/ cluster(jerking motions) // has a VNS implant which decreased grand mal seizures/ jerking episod weekly Uninodular goiter Urine incontinence Past Surgical History: Procedure Laterality Date CLAVICLE SURGERY COLONOSCOPY CYSTOCELE REPAIR 2016 EXCHANGE STIMULATOR BATTERY VAGAL NERVE N/A 03/23/2020 Performed by Nicola Mahan MD at [facility] 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 2004 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 REPAIR 7 months old SMALL INTESTINE SURGERY 1985, 1992, 1993 s/p diverticulitis; bowel obstruction x 2 Precautions Activity: OK to eval per Radha BHATT Equipment: non skid socks, bed and chair alarm, helmet when OOB Telemetry/Talcer: No Oxygen Order : room air Other: fall risk, history of MRDD Subjective Physical Therapy Comments: I don't want socks on. No. Pain Assessment Pain Assessment: No/denies pain Home Living Type of Home: Other (Comment) ([facility], [facility] per chart review.) Prior Function Lives With: Other (Comment) (lives in a [facility].) Receives Help From: Other (Comment) (staff at [facility].) Other: Prior level of function unknown. Patient a poor historian. Perseverates on not wearing socks. ADL / IADL Other: RN and PCT completing bed bath upon therapist arrival. Hearing / Speech / Vision Hearing: Within Functional Limits Speech: Garbled, Delayed responses (history of MRDD) Current Vision: Other (Comment) (unknown, no glasses noted in room.) Cognition Orientation Level: Oriented to person Bed Mobility Rolling: Contact guard assist (with use of bed rail L/R for brief change. Verbal cues to initiate.) Supine to Sit: Min assist, Verbal cues Other: Ends session in bedside chair, reclined, call button and bedside table within reach. Chair alarm intact. Denies further needs. Transfers Sit to Stand: Min assist (hand held assist. 2 attempts for success. Patient impulsive with standingand does not allow gait belt to be placed. Declines use of RW.) Stand to Sit: Min assist (Tactile and verbal cues for safe hand placement during transfers.) Bed to Chair: Min assist (hand held assist, patient with poor safety awareness and eccentric control. Impulsive.) Gait Other: Patient relates use of w/c at baseline. Impulsive and poor eccentric control with transfer to chair, 2 attempts for success, for gait assessment deferred for safety concerns at this time. Balance Sitting Balance: Static: Good Sitting Balance: Dynamic: Fair, Poor Standing Balance: Static: Fair, Poor Standing Balance: Dynamic: Poor RLE Assessment: (Functionally observed as at least 3/5 at hip, knee and ankle) LLE Assessment: (Functionally observed as at least 3/5 at hip, knee and ankle) Activity Tolerance Endurance: Tolerates <30 minutes activity WITHOUT vital sign changes Plan Physical Therapy Care Plan Physical Therapy Care Plan (Active) Template: PT - Physical Therapy Problem: Activity Tolerance Dates: Start: 01/06/25 Disciplines: PT Goal: Tolerate 30 minutes of activity WITH rest breaks Dates: Start: 01/06/25 Expected End: 01/15/25 Description: Goal Description: to participate in LE strengthening for increased ease of mobility and reduced caregiver burden. Disciplines: PT Problem: Bed Mobility Dates: Start: 01/06/25 Disciplines: PT Goal: Patient will perform bed mobility with Minimum Assist Dates: Start: 01/06/25 Expected End: 01/15/25 Description: Goal Description: from head of bed flat, no rail, as per home set-up. Disciplines: PT Problem: Sitting Balance Dates: Start: 01/06/25 Disciplines: PT Goal: Improve balance to good Dates: Start: 01/06/25 Expected End: 01/15/25 Description: Dynamic to reduce fall risk during functional mobility. Disciplines: PT Problem: Transfers Dates: Start: 01/06/25 Disciplines: PT Goal: Patient will perform transfers with Minimum Assist Dates: Start: 01/06/25 Expected End: 01/15/25 Description: Goal Description: with least restrictive device do to improving LE strength. Disciplines: PT Physical Therapy Care Plan (Resolved) There are no resolved problems. Principal Problem: Vomiting, unspecified vomiting type, unspecified whether nausea present Active Problems: Seizures (CMS-HCC) Mental retardation JOSÉ MIGUEL (acute kidney injury) Metabolic acidosis Hypokalemia Nausea and vomiting * Plan of Care - Yolanda Gamino RN - 01/06/2025 2:19 AM EST Problem: Potential for Compromised Skin Integrity Goal: Skin integrity is maintained or improved Description: Patient's goal is: INTERVENTIONS 1. Perform initial skin assessment on admission and as needed 2. Turn patient every 2 hours and PRN 3. Relieve pressure to bony prominences 4. Avoid shearing 5. Keep skin clean and dry 6. Alternate a full bath with partial baths for elderly 7. Apply lotion/moisturizer on skin 8. Monitor patient's hygiene practices 9. Float heels 10. Collaborate with interdisciplinary team and initiate plans and interventions as needed Outcome: Progressing Note: Evaluation of progress towards goal: Patient is independent with turning and repositioning. Goal: Patient's nutritional intake is adequate Description: [...] supplement as ordered 13. Collaborate with clinical movie shot cameraman 14. Include patient/ patient's mortician supplies sales representative in decisions related to nutrition Outcome: Progressing Note: Evaluation of progress towards goal: Patient understands the importance of proper nutrition to aid in healing. * PT/OT/REGULATORY ADMINISTRATOR - JOSE Holbrook - 01/05/2025 1:42 PM EST Occupational Therapy OT Type of Visit: Medical deferral Reason For Medical Deferral: Medical procedure ongoing (Mid line placement) OT to continue to follow. * Discharge Planning Note - Gloria Rodriguez - 01/05/2025 1:10 PM EST DISCHARGE PLANNING NOTE January 13 at 11:30am Hospital follow up with CARSON DIOR MD Spoke with Evette * Plan of Care - Dimas Jackman RPH - 01/05/2025 12:38 PM EST Problem: Medication Description: If medication is necessary, use low-risk medication that does not interfere with what matters to the older adult patient, mobility, or mentation across settings of care. Goal: Patient will be screened for high-risk medications once per stay Description: Interventions: 1. Pharmacist to perform medication review to screen for high-risk medications 2. Pharmacist to identify high-risk medications in the Plan of Care note 3. Pharmacist to make recommendations for follow-up in the Plan of Care note, if warranted Outcome: Completed Note: Medications individually and in combination may interfere with What Matters, Mentation, and safe Mobility because of the increased risk of confusion, delirium, unsteadiness and falls. Profile review indicates this patients has active orders for lacosamide, lorazepam, and metoclopramide. Chart review also shows changes in renal function. * Discharge Planning Note - KRYSTIN Acuña - 01/05/2025 11:32 AM EST Images from the original note were not included. Initial Assessment Discharge Planning Assessment Amol Brodie Taylor Admit Status: Observation Meet: Unknown Readmission Risk: N/A. Date of Admission: 01/04/2025 GMLOS: <48 hours Target Discharge Date: 01/06/2025 Discharge Planning Assessment completed with Guardian via phone. Service Coordinator Elderly Facility identified self and role toGuardian. Guardian is agreeable to the assessment and discussion of a safe discharge plan. Initial Assessment Flowsheet Row Most Recent Value Patient Information Initial Pre-Hospitalization Assessment Completed? Completed Primary Caregiver Other (Comment) [Correction] Support System Family Members Discharge Planning Living Arrangements Correction [Elue Correction] Assistance Needed Pt is mentally disabled. He is able to speak and answer some questons. However, there is no recall of medical history. He currently resides at [facility] in [place]. Leather Products Supervisor spoke with patient's legal guardian and sister, Susan Smith and she confirms that patient will return to [facility] at discharge. Type of Residence [facility] Community Agencies Currently Utilized None Community Referrals / Resources Provided Denies needs Does The Patient Have Existing Home DME? No Will the patient need DME at discharge? No, the patient has no home DME needs currently Stressors Income Information Income Information Disability IP Hunger/Food Insecurity Screening Within the past 12 months we worried whether our food would run out before we got money to buy more. Never True Within the past 12 months the food we bought just didn't last and we didn't have money to get more.Never True Hunger Screening Complete? Yes Warm Handoff Complete Caregiver/Family Member Caregiver/Support System Limitations Patient/Caregiver Goals Patient/Caregiver Goals Home No Needs Home No Needs Correction Community Provider Referral Community Provider Referral None Services Requested Patient expects to be discharged to: [facility] Does the patient wish to have family/friend/caregiver involved in their discharge planning? No, thepatient does not wish to have family/friend/caregiver involved in their discharge planning Discharge Disposition Correction Correction Name [facility] Does the patient need discharge transportation arranged? Yes [facility]: [facility] PCP: Dr. Dior Consulting Providers this admission: general surgery Patient will make his own follow up appointments: no Patient Goals: Goals [facility] (pt-stated) Evaluation of progress towards goal: Patient will return to [facility] PT Recommends: pending evaluation OT Recommends: pending evluation Plan to prevent readmission: follow up with PCP Patient/Family do not endorse any questions at this time. Patient Discharge Plan: Return to [facility]. Please call legal guardian/sister with discharge information: Susan Smith- [phone] Please notify caregivers at [facility] at time of discharge. P: [phone] Dior within 7-10 days. Appointment tasked to transition center. - KRYSTIN Acuña 01/05/25 11:37 AM Follow up appointment scheduled with PCP as follows: Patient Discharge Plan: Return to [facility]. Please call legal guardian/sister with discharge information: Susan Smith- [phone] Please notify caregivers at [facility] at time of discharge. P: [phone] Dior on 01/13/2025 at 11:30 am. - KRYSTIN Acuña 01/05/25 1:36 PM * PT/OT/REGULATORY ADMINISTRATOR - Reva Stanley PT - 01/05/2025 9:24 AM EST Physical Therapy PT Type of Visit: (P) Medical deferral Reason For Medical Deferral: (P) Medical procedure ongoing Medical Procedure Ongoing: (P) (Sterile procedure at bedside, getting midline. Will re-attempt as able.) PT will continue to follow this patient. [facility] N[facility]* Rosario Ge MD - 01/08/2025 10:00 AM EST [facility] [id number] Hospital Medicine Discharge Summary Patient: Amol Taylor Date of : 1955 Room: 210/01 Encounter date: 01/08/25 Hospital Day: 5 DATE OF ADMISSION: 01/04/2025 DATE OF DISCHARGE:01/08/2025 DISCHARGE DIAGNOSES Principal Problem: Vomiting, unspecified vomiting type, unspecified whether nausea present Active Problems: Seizures (CMS-HCC) Mental retardation JOSÉ MIGUEL (acute kidney injury) Metabolic acidosis Hypokalemia Nausea and vomiting [facility] General surgery PCP: CARSON DIOR MD PROCEDURES EGD w/ Biopsy 01/06 HOSPITAL COURSE SUMMARY Amol Taylor is a 69 y.o. male who presents with vomiting. He was here a couple days ago for SBO and small bowel follow-through was normal and was discharged back as he was eating and passing stool when he was discharge. Heart rate 112 on arrival afebrile blood pressure normal does have a history of MRDD. Patient had 1 episode of vomiting at group home was self-induced and had large volume diarrhea case was discussed with general surgeon Dr. Andre and she thinks there is some possibility of having gastroparesis she reviewed imaging from yesterday and today CT and due to the amount of distention and fluid-filled stomach she recommended NG tube and starting Reglan and fluids. Results in the ER white blood cell count 13.5 absolute neutrophils 11.0 CO2 18 glucose 132 creatinine 2.22 BUN 26 alk-phos 158 GFR 31 lactate normal Imaging in the ER CT abdomen from January 03 Nonspecific distended central and peripheral bowel loops including portions of the large and small bowel thought largely to relate to ileus. There is slightly greater distention of fluid-filled small bowel in the left mid abdomen extending up to some small bowel anastomosis sutures near the level of the left iliac crest, without suspicious fluid or gas in the mesentery around that anastomosis or along the paracolic gutters.There is fluid-filled dilated stomach but without significant dilatation of the duodenum or proximal jejunal segments.There is slight elevation of left diaphragm with some patchy opacities in the left base which may be atelectasis or mild pneumonia.The presence of considerable fluid in portions of the large and small bowel and rectum, a nonspecific finding that can be related to diarrhea, gastroenteritis or malabsorption syndromes. x-ray abdomen from yesterday Nonspecific gaseous bowel prominence. This appears similar to previousCT dated 01/03/2025. Close follow-up recommended. NG placed and repeat abdominal x-ray shows A feeding tube tip is deep in the left lateral body of the stomach. The stomach is air distended Admit for nausea and vomiting with recent small-bowel obstruction JOSÉ MIGUEL and multiple electrolyte abnormalities low potassium, low Co2 secondary to Nausea and vomiting with distention on imaging -general surgery following -previous surgical history included intussusception as an and recurrent small-bowel obstructions some treated with surgery home notes -was admitted 12/29-01/01 here at [facility] for small-bowel obstruction -Reglan every 8 hours -Cdiff and GI panel- both normal -bladder scan every [address] will if > 300ml add u/a -WBC 5.0 (6.0) (7.2) (11.7) improving suspect bump up from dehydration -Midline placed 01/05-removed -Creatinine improving 0.97 (1.27) (2.16) -EGD w/ biopsy 01/06- gastritis, esophagitis, bx results pending -Advanced to pureed diet, tolerating fine General Surgery assessment/plan: EGD w/ biopsy 01/06 - Await pathology results. - [facility] patient to [facility] for ongoing care - Advance diet as tolerated. Sepsis suspected, no-not clinically evident at this time. Discharge Day Progress Note 01/08/25 No overnight events and remains hemodynamically stable. Pt medically stable for discharge. Pt denies nausea/vomiting, tolerating diet fine. Pt to return togroup home. Follow up with PCP in 7-10 days. Review of Systems Constitutional: Negative for activity change, appetite change, chills, fatigue, fever and unexpected weight change. HENT: Negative for congestion, dental problem, hearing loss, rhinorrhea, sore throat, trouble swallowing and voice change. Eyes: Negative for visual disturbance. Respiratory: Negative for cough, shortness of breath and wheezing. Cardiovascular: Negative for chest pain, palpitations and leg swelling. Gastrointestinal: Negative for abdominal pain, blood in stool and constipation. Genitourinary: Negative for difficulty urinating, dysuria, enuresis, frequency and hematuria. Musculoskeletal: Negative for arthralgias, joint swelling and myalgias. Skin: Negative for color change, rash and wound. Neurological: Negative for dizziness, seizures, syncope, speech difficulty, weakness, numbness and headaches. Hematological: Negative for adenopathy. Does not bruise/bleed easily. Psychiatric/Behavioral: Negative for dysphoric mood and sleep disturbance. The patient is not nervous/anxious. BP 125/76 Pulse 64 Temp 36.4 C (97.6 F) (Oral) Resp 22 Ht 175.3 cm (5' 9 ) Wt 90 kg (198 lb 8 oz) SpO2 95% BMI 29.31 kg/m Temp: [36.4 C (97.6 F)-36.8 C (98.3 F)] 36.4 C (97.6 F) Pulse: [64-78] 64 Resp: [18-22] 22 BP: (125-150)/(71-85) 125/76 SpO2: [95 %-97 %] 95 % O2 Device: None (Room air) O2 Flow Rate (L/min): [0 L/min] 0 L/min Intake/Output Summary (Last 24 hours) at 01/08/2025 1707 Last data filed at 01/08/2025 0704 Gross per 24 hour Intake 657.61 ml Output -- Net 657.61 ml Physical Exam Constitutional: General: He is not in acute distress. Appearance: Normal appearance. He is well-developed. HENT: Head: Normocephalic and atraumatic. Right Ear: External ear normal. Left Ear: External ear normal. Nose: Nose normal. Mouth/Throat: Lips: [place]. Mouth: Mucous membranes are moist. Pharynx: Oropharynx is clear. Eyes: General: No scleral icterus. Pupils: Pupils are equal, round, and reactive to light. Neck: Vascular: No JVD. Cardiovascular: Rate and Rhythm: Normal rate and regular rhythm. Pulses: Radial pulses are 2+ on the right side and 2+ on the left side. Heart sounds: Normal heart sounds, S1 normal and S2 normal. No murmur heard. No friction rub. No gallop. Pulmonary: Effort: Pulmonary effort is normal. Breath sounds: Normal breath sounds. No decreased breath sounds, wheezing, rhonchi or rales. Abdominal: General: Bowel sounds are normal. Palpations: Abdomen is soft. Tenderness: There is no abdominal tenderness. Musculoskeletal: Right lower leg: No edema. Left lower leg: No edema. Skin: General: Skin is warm and dry. Capillary Refill: Capillary refill takes less than 2 seconds. Findings: No erythema, rash or wound. Neurological: General: No focal deficit present. Mental Status: He is alert and oriented to person, place, and time. Psychiatric: Attention and Perception: Attention normal. Mood and Affect: Mood and affect normal. Behavior: Behavior normal. Behavior is cooperative. Code Status: Full Code Labs Recent Results (from the past 48 hours) Potassium Collection Time: 01/06/25 10:14 PM Result Value Ref Range POTASSIUM 3.8 3.5 - 5.0 mmol/L Comprehensive metabolic panel Collection Time: 01/07/25 6:40 AM Result Value Ref Range SODIUM 142 134 - 146 mmol/L POTASSIUM 3.8 3.5 - 5.0 mmol/L CHLORIDE 111 (H) 98 - 109 mmol/L CARBON DIOXIDE 20 (L) 22 - 32 mmol/L ANION GAP 11 5 - 15 mmol/L BLOOD UREA NITROGEN 20 5 - 27 mg/dL CREATININE 0.97 0.70 - 1.20 mg/dL GLUCOSE 94 65 - 99 mg/dL CALCIUM 8.4 (L) 8.5 - 10.5 mg/dL TOTAL PROTEIN 6.5 6.0 - 8.0 g/dL ALBUMIN 3.2 3.2 - 5.3 g/dL ALKALINE PHOSPHATASE 107 39 - 130 U/L AST 16 <=41 U/L ALT 17 <=40 U/L BILIRUBIN,TOTAL 0.4 0.3 - 1.2 mg/dL EGFR Non-Race Dependent 85 >=60 ml/min/1.73sq.m Magnesium Collection Time: 01/07/25 6:40 AM Result Value Ref Range MAGNESIUM 1.6 (L) 1.8 - 2.6 mg/dL CBC auto differential Collection Time: 01/07/25 6:40 AM Result Value Ref Range WBC 6.0 4 - 11 X10^9/L RBC Count 3.63 (L) 4.1 - 5.7 X10^12/L Hemoglobin 11.5 (L) 13 - 17 g/dL Hematocrit 34.5 (L) 39 - 50 % MCV 95 80 - 100 fL MCH 31.7 27 - 34 pg MCHC 33.4 32 - 36 g/dL RDW 13.3 11.5 - 15 % Platelet Count 223 150 - 450 X10^9/L MPV 7.6 7 - 12 fL Neutrophils % 56.7 % Lymphocytes % 28.5 % Monocytes % 8.9 % Eosinophils % 5.0 % Basophils % 0.9 % Neutrophils Absolute (A) 3.4 1.5 - 6.6 X10^9/L Lymphocytes Absolute 1.7 1.0 - 3.5 X10^9/L Monocytes Absolute 0.5 0.0 - 0.9 X10^9/L Eosinophils Absolute 0.3 0.0 - 0.4 X10^9/L Basophils Absolute 0.1 0.0 - 0.2 X10^9/L Differential Type AUTOMATED DIFFERENTIAL Comprehensive metabolic panel Collection Time: 01/08/25 8:44 AM Result Value Ref Range SODIUM 137 134 - 146 mmol/L POTASSIUM 4.1 3.5 - 5.0 mmol/L CHLORIDE 104 98 - 109 mmol/L CARBON DIOXIDE 24 22 - 32 mmol/L ANION GAP 9 5 - 15 mmol/L BLOOD UREA NITROGEN 16 5 - 27 mg/dL CREATININE 0.97 0.70 - 1.20 mg/dL GLUCOSE 95 65 - 99 mg/dL CALCIUM 8.5 8.5 - 10.5 mg/dL TOTAL PROTEIN 6.8 6.0 - 8.0 g/dL ALBUMIN 3.3 3.2 - 5.3 g/dL ALKALINE PHOSPHATASE 111 39 - 130 U/L AST 16 <=41 U/L ALT 16 <=40 U/L BILIRUBIN,TOTAL 0.6 0.3 - 1.2 mg/dL EGFR Non-Race Dependent 85 >=60 ml/min/1.73sq.m Magnesium Collection Time: 01/08/25 8:44 AM Result Value Ref Range MAGNESIUM 2.3 1.8 - 2.6 mg/dL CBC auto differential Collection Time: 01/08/25 8:44 AM Result Value Ref Range WBC 5.0 4 - 11 X10^9/L RBC Count 3.74 (L) 4.1 - 5.7 X10^12/L Hemoglobin 11.7 (L) 13 - 17 g/dL Hematocrit 35.6 (L) 39 - 50 % MCV 95 80 - 100 fL MCH 31.3 27 - 34 pg MCHC 32.8 32 - 36 g/dL RDW 13.4 11.5 - 15 % Platelet Count 234 150 - 450 X10^9/L MPV 7.2 7 - 12 fL Neutrophils % 49.5 % Lymphocytes % 33.1 % Monocytes % 10.1 % Eosinophils % 6.5 % Basophils % 0.8 % Neutrophils Absolute (A) 2.5 1.5 - 6.6 X10^9/L Lymphocytes Absolute 1.6 1.0 - 3.5 X10^9/L Monocytes Absolute 0.5 0.0 - 0.9 X10^9/L Eosinophils Absolute 0.3 0.0 - 0.4 X10^9/L Basophils Absolute 0.0 0.0 - 0.2 X10^9/L Differential Type AUTOMATED DIFFERENTIAL Bedside Glucose *Place/Obtain serum glucose if >500 per glucometer. Collection Time: 01/08/25 11:52 AM Result Value Ref Range Bedside Glucose (POC) 99 65 - 99 mg/dL Bedside Glucose *Place/Obtain serum glucose if >500 per glucometer. Collection Time: 01/08/25 4:51 PM Result Value Ref Range Bedside Glucose (POC) 106 (H) 65 - 99 mg/dL Radiology EGD Report Result Date: 01/06/2025 Narrative: This order has been auto-finalized for image and report archival in PACs. *For full report details, please reach out to your physician. This image is visible to you in MyChart.* X-ray abdomen NG Tube placement 1 view Result Date: 01/04/2025 Narrative: Exam: Abdomen one view. HISTORY: Feeding tube placement. IMPRESSION: 1. A feeding tube tip is deep in the left lateral body of the stomach. The stomach is air distended. Finalized by Mir Palencia MD on 01/04/2025 6:18 PM X-ray abdomen complete series with pa chest Result Date: 01/04/2025 Narrative: Abdomen: HISTORY: Abdominal pain and vomiting. 5 views of the abdomen were obtained. There is nonspecific gaseous bowel prominence which appears to involve both large and small bowel. Stomach appears mildly distended. No free air appreciated. Left lower lobe discoid atelectasis appreciated. IMPRESSION: Nonspecific gaseous bowel prominence. This appears similar to previous CT dated 01/03/2025. Close follow-up recommended. Finalized by Dimas Delgado MD on 01/04/2025 2:[address] abdomen and pelvis with contrast Result Date: 01/03/2025 Narrative: HISTORY and Tech Notes: Abdominal pain Small bowel obstruction PROCEDURE: CT abdomen pelvis Study is done with IV contrast Routine protocol Automated exposure control was utilized COMPARISON: December 29 FINDINGS: UPPER ABDOMEN No splenomegaly. Line the detail is somewhat degraded and obscured because of motion and other technical factors including the positioning of the arms There is achronic appearing crescentic fluid collection and calcification along the lateral aspect of the posterior and mid left kidney with small cyst at the inferior margin of that with some peripheral calcification No peripancreatic fluid collections. No suspicious liver mass. The hepatic veins and portalveins look patent No ductal dilatation No perihepatic fluid The stomach is filled with fluid and looks dilated The duodenum and proximal jejunum do not look particularly dilated There is however somedilatation of the small bowel in the left mid abdomen extending up to the anastomosis sutures near the level of the iliac crest GB unremarkable. No suspicious adrenal mass seen Moderate vascular calcification PELVIS No hydronephrosis . Nondilated bladder Fluid-filled rectum No fecal impaction or perirectal abscess There is some gaseous distention of portions of large and small bowel The mobile cecum is positioned in the right supraumbilical region with fluid-filled distal ileum The appendix is not clearly visible There are small lymph nodes in the mesentery and retroperitoneum. No sign of an abdominal aortic aneurysm. No retroperitoneal bleed or suspicious adenopathy. No suspicious fluid along the paracolic gutters or subhepatic region There is not significant fluid or gas in the mesentery. LUNG BASE EVALUATION Patchy opacities at the left base may be atelectasis or mild pneumonia No eff usions. . BONE RECONSTRUCTIONS no compression deformity. No discitis or other lytic destructive process Severe multilevel canal stenosis probably most impressive at L1-L2. IMPRESSION: Nonspecific distended central and peripheral bowel loops including portions of the large and small bowel thought largely to relate to ileus There is slightly greater distention of fluid-filled small bowel in the left mid abdomen extending up to some small bowel anastomosis sutures near the level of the left iliac crest, without suspicious fluid or gas in the mesentery around that anastomosis or along the paracolic gutters There is fluid- filled dilated stomach but without significant dilatation of the duodenum or proximal jejunal segments There is slight elevation of left diaphragm with some patchy opacities in the left base which may be atelectasis or mild pneumonia The presence of considerable fluid in portions of the large and small bowel and rectum, a nonspecific finding that can be related to diarrhea, gastroenteritis or malabsorption syndromes. . . All CT scans at this facility use dose modulation, iterative reconstruction, and/or weight based dosing when appropriate to reduce radiation dose to as low as reasonably achievable. Finalized by Subhash Carrizales MD on 01/03/2025 2:18 PM Fluoroscopy small bowel Result Date: 12/31/2024 Narrative: History: Vomiting. Bowel obstruction. Exam/Technique: Small bowel follow-through. Comparison: Precontrast images, 4 and 24 hour delayed images are obtained after oral contrast administration. Findings: There is an NG tube in place with decompressed stomach. The initial contract modeler images show abnormal bowel distention measuring up to 5.5 cm most pronounced left mid abdomen. At 4 hour and 24-hour imaging contrast is noted within large bowel indicating incomplete obstruction. IMPRESSION: * Prominent small bowel with contrast reaching the colon at 4 hours indicating at most incomplete obstruction. Finalized by Geoffrey Rain DO on 12/31/2024 9:35 AM X-ray chest 2 views Result Date: 12/30/2024 Narrative: Clinical history: Abnormal CT abd pelvis with bibasilar opacities. Comparisons: 04/10/2023through 10/15/2024. CT abdomen and pelvis 12/29/2024 is also available. Findings: Portable chest radiograph obtained. Heart size and pulmonary vasculature appear within normal limits. Prominent left-sided epicardial fat pad again seen. No definite pleural effusion or pneumothorax. Minimal linear opacities are present in the lung bases, left greater than right likely reflecting areas of subsegmental atelectasis. No focal pulmonary parenchymal consolidation to suggest lobar pneumonia. Vagal stimulator device overlies left lateral chest wall. Nasogastric tube terminates within stomach. Mildly prominent gas-filled bowel loops are present in the upper abdomen. IMPRESSION: 1. Minimal linear opacities in the lung bases are present left greater than right likely reflecting areas of subsegmental atelectasis. No focal pulmonary parenchymal consolidation/pneumonia. Finalized by Luz Marina Louise MD on 12/30/2024 8:10 AM X-ray abdomen ap 1 view Result Date: 12/29/2024 Narrative: EXAM: XR ABDOMEN AP 1 VW CLINICAL INFORMATION: NG tube Placement. COMPARISON: 10/15/2024,12/29/2024 FINDINGS: There is a gastric tube with the tip in the air-filled distended stomach. Dilated small bowel loops are noted, compatible with small bowel obstruction. IMPRESSION: 1. Gastric tube with the tip in the air-filled distended stomach. 2. Dilated small bowel and air-filled distended stomach, compatible with small bowel obstruction. Finalized by Rk Borges MD on12/29/2024 10:[address] abdomen and pelvis with contrast Result Date: 12/29/2024 Narrative: CT ABDOMEN AND PELVIS W CONT CLINICAL HISTORY:oral and iv contrast - vomiting hx or sbo COMPARISON: None. TECHNIQUE: CT abdomen and pelvis was performed utilizing the standard protocol following the uneventful administration of 100 cc Omnipaque 300 nonionic intravenous contrast. Coronal a nd sagittal reformatted images were generated and reviewed. Automated exposure control was utilized. FINDINGS: Dependent bibasilar pulmonary parenchymal opacities. Mild cardiomegaly. Unremarkable liver, gallbladder, spleen, adrenal glands, pancreas, right kidney. Chronic appearing subcapsular collection left kidney with peripheral calcifications. No acute appearing occlusion of the major visceralvasculature. No dilatation or wall thickening of the large bowel. Nonvisualized appendix. Left abdominal enteroenteric anastomosis [capacious juxta anastomotic bowel] dilated proximal small bowel,. 4.4 cm, gradual transition to nondistended mid to distal small bowel, no solitary high-grade transition point. No acute appearing occlusion of the major visceral vasculature. No free fluid or fluid collections. No aggressive osseous lesions. Diffuse idiopathic skeletal hyperostosis, rigid spine. Suspected moderate thecal sac stenosis at L1-2 and L2-3 IMPRESSION: 1. Dilated proximal small bowel with gradual transition to nondistended small bowel in the mid to distal ileum, no solitary high-grade transition point to definitively suggest obstruction. Gastrografin challenge/small bowel follow-through may be helpful, consider as appropriate. All CT scans at this facility use dose modulation, iterative reconstruction, and/or weight based dosing when appropriate to reduce radiation dose to as low as reasonably achievable. Finalized by Edmar Dos Santos MD on 12/29/2024 9:31 PM XR ABDOMEN 3V KUB W/OBLIQUES Result Date: 12/12/2024 Narrative: * * *Final Report* * * DATE OF EXAM: Dec 11 2024 4:03PM CHX [id number] - XR ABDOMEN 3V KUB W/OBLIQUES / PROCEDURE REASON: Diarrhea, unspecified type * * * * Physician Interpretation * * * * EXAMINATION: XR ABDOMEN 3V KUB W/OBLIQUES CLINICAL HISTORY: Diarrhea, unspecified type Technique: XR ABDOMEN 3V KUB W/OBLIQUES -- NOT APPLICABLE with 3 views on 4 images Comparison: Outside institution CT abdomen/pelvis dated 06/20/2023. Abdomen x-rays dated 11/28/2018. RESULT: Nonobstructive bowel gas pattern. No evidence of intraperitoneal free air. No abnormal intra-abdominal calcification is seen projecting over the expected locations of the kidneys, ureters or urinary bladder, however note that the renal shadows are mostly obscured by overlying bowel contents. The imaged lung bases are clear. No acute osseous abnormality. Impression: IMPRESSION: 1. No acute radiographic finding in the abdomen. Terrapin Fisher: [facility] Transcribe Date/Time: Dec 12 2024 3:52P Dictated by : NIKA HINOJOSA MD This examination was interpretedand the report reviewed and electronically signed by: NIKA HINOJOSA MD on Dec 12 2024 3:54PM EST DISCHARGE INSTRUCTION Disposition: Home Condition: Stable Activity: activity as tolerated Diet: Adult diet Level 4 Pureed diet; Level 2 Mildly Thick Follow up: CARSON DIOR MD within 7-14 days. Labs/Imaging/Pathology: Pending Labs Order Current Status Surgical Pathology In process Discharge Medications: Medication List CONTINUE taking these medications Instructions Last Dose Given Next Dose Due acetaminophen 500 mg tablet Commonly known as: TYLENOL EXTRA STRENGTH Take 1 tablet (500 mg total) by mouth every 6 (six) hours as needed for pain. albuterol 90 mcg/actuation inhaler Commonly known as: PROVENTIL HFA;VENTOLIN HFA Inhale 2 puffs every 4 (four) hours as needed for wheezing. benzonatate 100 mg capsule Commonly known as: TESSALON PERLES Take 1 capsule (100 mg total) by mouth 3 (three) times a day as needed for cough. TAYE-GEST ANTACID 200 mg calcium (500 mg) chewable tablet Generic drug: calcium carbonate Chew 1 tablet (200 mg total) and swallow in the morning and 1 tablet (200 mg total) before bedtime. finasteride 5 mg tablet Commonly known as: PROSCAR Take 1 tablet (5 mg total) by mouth daily. hydrOXYzine 25 mg tablet Commonly known as: ATARAX Take 1 tablet (25 mg total) by mouth every 12 (twelve) hours as needed for itching. * lamoTRIgine 200 mg tablet Commonly known as: LaMICtal Take 2 tablets (400 mg total) by mouth every morning. 400mg in AM and 600mg in evening * lamoTRIgine 200 mg tablet Commonly known as: LaMICtal Take 3 tablets (600 mg total) by mouth nightly. latanoprost 0.005 % ophthalmic solution Commonly known as: XALATAN Administer 1 drop to both eyes nightly. * levETIRAcetam 1000 mg tablet Commonly known as: KEPPRA Take 2 tablets (2,000 mg total) by mouth once daily at bedtime. * levETIRAcetam 750 mg tablet Commonly known as: KEPPRA Take 2 tablets (1,500 mg total) by mouth in the morning. LINZESS 145 mcg capsule Generic drug: linaCLOtide Take 1 capsule (145 mcg total) by mouth every morning before breakfast. LORazepam 0.5 mg tablet Commonly known as: ATIVAN Take 1 tablet (0.5 mg total) by mouth every 8 (eight) hours as needed for anxiety. magnesium oxide 400 mg tablet Commonly known as: MAGOX Take 1 tablet (400 mg total) by mouth in the morning. meclizine 25 mg tablet Commonly known as: ANTIVERT Take 1 tablet (25 mg total) by mouth daily. melatonin 3 mg capsule Take 1 capsule by mouth nightly as needed (insomnia). nystatin cream Commonly known as: MYCOSTATIN Apply 1 Application topically as needed (Apply topically to affected area twice daily as needed). olopatadine 0.2 % drops Commonly known as: PATADAY Instill 1 drop to eye in the morning. ondansetron ODT 4 mg disintegrating tablet Commonly known as: ZOFRAN ODT Dissolve 1 tablet (4 mg total) on tongue every 12 (twelve) hours as needed for nausea or vomiting. pantoprazole 40 mg EC tablet Commonly known as: PROTONIX Take 1 tablet (40 mg total) by mouth in the morning. polyethylene glycol 17 gram packet Commonly known as: GLYCOLAX Take 17 g by mouth 2 (two) times a day as needed (constipation). * primidone 250 mg tablet Commonly known as: MYSOLINE Take 1 tablet (250 mg total) by mouth in the morning. * primidone 250 mg tablet Commonly known as: MYSOLINE Take 1.5 tablets (375 mg total) by mouth nightly. Saccharomyces boulardii 250 mg capsule Commonly known as: FLORASTOR Take 1 capsule (250 mg total) by mouth in the morning. SENEXON-S 8.6-50 mg Generic drug: sennosides-docusate sodium Take 2 tablets by mouth in the morning. tamsulosin 0.4 mg capsule Commonly known as: FLOMAX Take 1 capsule (0.4 mg total) by mouth 2 (two) times a day. VIMPAT 150 mg tablet Generic drug: lacosamide Take 1 tablet (150 mg total) by mouth 2 (two) times a day. * This list has 6 medication(s) that are the same as other medications prescribed for you. Read thedirections carefully, and ask your doctor or other care provider to review them with you. STOP taking these medications diazePAM 5-7.5-10 mg rectal kit Commonly known as: DIASTAT ACUDIAL >30 minutes were spent on discharging this patient. RALPH Rodrigez 01/08/2025 5:07 PM [facility] 7AM-7PM & 7PM-7AM: [employer] or page through [employer]. Physician Attestation: I have reviewed the above note authored by the Advance Practice Provider (MEMO) including history, review of systems, physical examination, medical decision making and agree with the assessment & plan. I have personally performed a face to face diagnostic evaluation on this patient. I have reviewed all laboratory findings and imaging reports/films. I have independently evaluated the patient and repeated gee portions of the physical exam. I agree with the MEMO plan as above, unless otherwise noted. ROSARIO GE MD [facility] Progress note* Discharge Planning Note - KRYSTIN Acuña - 01/08/2025 8:50 AM EST DISCHARGE PLANNING NOTE Possible discharge back to [facility] today. Patient Discharge Plan: Return to [facility]. Please call legal guardian/sister with discharge information: Susan Smith- [phone] Please notify caregivers at [facility] at time of discharge. P: [phone] Dior on 01/13/2025 at 11:30 am. - KRYSTIN Acuña 01/08/25 8:50 AM Dang Le [id number] Plan of care note* Plan of Care - Brittny Ruby RN - 01/08/2025 3:36 AM EST Problem: Safety Goal: Patient will be injury free during hospitalization Description: INTERVENTIONS: 1. Assess patient's risk for falls and implement fall prevention plan of care per policy 2. Provide and maintain a safe environment 3. Proper use of double Identifiers 4. Medication administration using the 5 rights 5. Hand hygiene 6. Specimens are labeled at the bedside 7. Instruct patient/ patient mortician supplies sales representative about use of safety devices 8. Include patient/ patient mortician supplies sales representative in decisions related to safety Outcome: Progressing Note: Evaluation of progress towards goal: Able to ambulate In and Out of the bed with walker and 1assist. No injury/ trauma/ fall. Hourly rounds completed. Problem: Cardiovascular - Adult Goal: Absence of cardiac dysrhythmias or at baseline Description: INTERVENTIONS: 1. Continuous cardiac monitoring, monitor vital signs, obtain 12 lead EKG as ordered 2. Monitor for therapeutic effect/ side effects and safely 3. Administer antiarrhythmic and heart rate control medications as ordered 3. Initiate emergency measures for life threatening arrhythmias 4. Monitor labs and administer replacement/adjust therapy as ordered Outcome: Progressing Note: Evaluation of progress towards goal: EKG - NSR , denies any cardiac related complaints. Problem: Respiratory - Adult Goal: Achieves optimal ventilation and oxygenation Description: Patient's goal is: INTERVENTIONS: 1. Assess for changes in respiratory status 2. Assess for changes in mentation and behavior 3. Position to facilitate oxygenation and minimize respiratory effort 4. Oxygen supplementation based on oxygen saturation or ABGs as ordered 5. Consult smoking cessation as indicated 6. Encourage broncho-pulmonary hygiene including cough, deep breathe, Incentive Spirometry, keep HOB elevated as tolerated, and encourage ambulation, as ordered 7. Assess the need for suctioning and obtain order to maintain clear airway 8. Assess and instruct patient to report SOB or any respiratory difficulty 9. Assess the need for Respiratory Therapy support if not already ordered 10. Initiate emergency measures for respiratory failure Outcome: Progressing Note: Evaluation of progress towards goal: Currently on room air, breath sounds diminished, not in respiratory distress. Problem: Metabolic/Fluid and Electrolytes - Adult Goal: Electrolytes maintained within normal limits Description: INTERVENTIONS 1. Monitor for signs and symptoms of hypovolemia (tachycardia, rapid breathing, decreased urine output, postural hypotension, sunken fontanel) 2. Monitor for signs and symptoms of hypervolemia (strong rapid pulse, rapid breathing, crackles heard in lung matta, edema, decreased urine output, sudden weight gain, distended neck veins in olderchildren, enlarged liver and spleen) 1. Monitor intake and output 2. Monitor pt's weight 1. Monitor labs and assess patient for signs and symptoms of electrolyte imbalances 2. Administer electrolyte replacement as ordered 3. Monitor response to electrolyte replacements, including repeat lab results as appropriate 4. Fluid restriction or hydration as ordered 5. Instruct patient/ legal mortician supplies sales representative on nutrition/diet; fluid/hydration restrictions as appropriate Outcome: Progressing Note: Evaluation of progress towards goal: Mg- 1.7 (Will give 2 gms replacement per order ), recheck morning draw. [facility]11[facility] History of Present illness Narrative* Rosario Ge MD - 01/07/2025 9:00 AM EST Images from the original note were not included. [facility] [address] [facility] [id number] Hospital Medicine Progress Note Patient: Amol Taylor Date of : 1955 Room: PCP: CARSON DIOR MD Admission date: 01/04/2025 1:05 PM Encounter date: 01/07/25 Hospital Day: 4 SUBJECTIVE Interval History: Status: stable. No overnight events. Pt resting in bed comfortably. Advanced to pureed diet, tolerating fine. Not complaining of any nausea or vomiting. Having Bms per nursing staff. Review of Systems Constitutional: Negative for activity change, appetite change, chills, fatigue, fever and unexpected weight change. HENT: Negative for congestion, dental problem, hearing loss, rhinorrhea, sore throat, trouble swallowing and voice change. Eyes: Negative for visual disturbance. Respiratory: Negative for cough, shortness of breath and wheezing. Cardiovascular: Negative for chest pain, palpitations and leg swelling. Gastrointestinal: Negative for abdominal pain, blood in stool and constipation. Genitourinary: Negative for difficulty urinating, dysuria, enuresis, frequency and hematuria. Musculoskeletal: Negative for arthralgias, joint swelling and myalgias. Skin: Negative for color change, rash and wound. Neurological: Negative for dizziness, seizures, syncope, speech difficulty, weakness, numbness and headaches. Hematological: Negative for adenopathy. Does not bruise/bleed easily. Psychiatric/Behavioral: Negative for dysphoric mood and sleep disturbance. The patient is not nervous/anxious. OBJECTIVE BP 126/76 Pulse 74 Temp 36.5 C (97.7 F) (Oral) Resp 18 Ht 175.3 cm (5' 9 ) Wt 91.2 kg (201 lb) SpO2 95% BMI 29.68 kg/m Temp: [36.5 C (97.7 F)-37 C (98.6 F)] 36.5 C (97.7 F) Pulse: [72-82] 74 Resp: [16-18] 18 BP: (123-136)/(60-76) 126/76 SpO2: [92 %-96 %] 95 % O2 Device: None (Room air) O2 Flow Rate (L/min): [0 L/min] 0 L/min Intake/Output Summary (Last 24 hours) at 01/07/2025 1534 Last data filed at 01/07/2025 0800 Gross per 24 hour Intake 720 ml Output 330 ml Net 390 ml Physical Exam Constitutional: General: He is not in acute distress. Appearance: Normal appearance. He is well-developed. HENT: Head: Normocephalic and atraumatic. Right Ear: External ear normal. Left Ear: External ear normal. Nose: Nose normal. Mouth/Throat: Lips: [place]. Mouth: Mucous membranes are moist. Pharynx: Oropharynx is clear. Eyes: General: No scleral icterus. Pupils: Pupils are equal, round, and reactive to light. Neck: Vascular: No JVD. Cardiovascular: Rate and Rhythm: Normal rate and regular rhythm. Pulses: Radial pulses are 2+ on the right side and 2+ on the left side. Heart sounds: Normal heart sounds, S1 normal and S2 normal. No murmur heard. No friction rub. No gallop. Pulmonary: Effort: Pulmonary effort is normal. Breath sounds: Normal breath sounds. No decreased breath sounds, wheezing, rhonchi or rales. Abdominal: General: Bowel sounds are normal. Palpations: Abdomen is soft. Tenderness: There is no abdominal tenderness. Musculoskeletal: Right lower leg: No edema. Left lower leg: No edema. Skin: General: Skin is warm and dry. Capillary Refill: Capillary refill takes less than 2 seconds. Findings: No erythema, rash or wound. Neurological: General: No focal deficit present. Mental Status: He is alert and oriented to person, place, and time. Psychiatric: Attention and Perception: Attention normal. Mood and Affect: Mood and affect normal. Behavior: Behavior normal. Behavior is cooperative. Medications Scheduled: alteplase, 2 mg, intravenous, Once calcium carbonate, 200 mg, oral, BID ciprofloxacin, 400 mg, intravenous, Q12H finasteride, 5 mg, oral, Daily heparin (porcine), 5,000 Units, subcutaneous, Q8H DAR lacosamide, 150 mg, oral, BID Lactobacillus acidophilus, 1 capsule, oral, BID with meals lamoTRIgine, 400 mg, oral, Daily lamoTRIgine, 600 mg, oral, Nightly latanoprost, 1 drop, both eyes, Nightly levETIRAcetam, 1,500 mg, oral, Daily levETIRAcetam, 2,000 mg, oral, HS magnesium oxide, 400 mg, oral, Daily meclizine, 25 mg, oral, Daily metoclopramide, 5 mg, intravenous, Q6H pantoprazole, 40 mg, intravenous, Q24H DAR primidone, 250 mg, oral, Daily primidone, 375 mg, oral, Nightly [COMPLETED] Consult PICC nurse - Midline, , , Once AND sodium chloride, 10 mL, intravenous, Q12H AND sodium chloride, 10 mL, intravenous, PRN AND sodium chloride, 20 mL, intravenous, PRN tamsulosin, 0.4 mg, oral, BID Infusions: As Needed: acetaminophen albuterol alum-mag hydroxide-simeth benzonatate hydrOXYzine LORazepam magnesium sulfate magnesium sulfate melatonin ondansetron potassium chloride OR potassium chloride OR potassium chloride IV (Adult) [COMPLETED] Consult PICC nurse - Midline AND sodium chloride AND sodium chloride AND sodium chloride sodium chloride Allergies: Penicillins, Sodium hypochlorite, Bleach (sodium hypochlorite), Tree nuts, and Clindamycin Code Status: Full Code Labs Recent Results (from the past 24 hours) Potassium Collection Time: 01/06/25 10:14 PM Result Value Ref Range POTASSIUM 3.8 3.5 - 5.0 mmol/L Comprehensive metabolic panel Collection Time: 01/07/25 6:40 AM Result Value Ref Range SODIUM 142 134 - 146 mmol/L POTASSIUM 3.8 3.5 - 5.0 mmol/L CHLORIDE 111 (H) 98 - 109 mmol/L CARBON DIOXIDE 20 (L) 22 - 32 mmol/L ANION GAP 11 5 - 15 mmol/L BLOOD UREA NITROGEN 20 5 - 27 mg/dL CREATININE 0.97 0.70 - 1.20 mg/dL GLUCOSE 94 65 - 99 mg/dL CALCIUM 8.4 (L) 8.5 - 10.5 mg/dL TOTAL PROTEIN 6.5 6.0 - 8.0 g/dL ALBUMIN 3.2 3.2 - 5.3 g/dL ALKALINE PHOSPHATASE 107 39 - 130 U/L AST 16 <=41 U/L ALT 17 <=40 U/L BILIRUBIN,TOTAL 0.4 0.3 - 1.2 mg/dL EGFR Non-Race Dependent 85 >=60 ml/min/1.73sq.m Magnesium Collection Time: 01/07/25 6:40 AM Result Value Ref Range MAGNESIUM 1.6 (L) 1.8 - 2.6 mg/dL CBC auto differential Collection Time: 01/07/25 6:40 AM Result Value Ref Range WBC 6.0 4 - 11 X10^9/L RBC Count 3.63 (L) 4.1 - 5.7 X10^12/L Hemoglobin 11.5 (L) 13 - 17 g/dL Hematocrit 34.5 (L) 39 - 50 % MCV 95 80 - 100 fL MCH 31.7 27 - 34 pg MCHC 33.4 32 - 36 g/dL RDW 13.3 11.5 - 15 % Platelet Count 223 150 - 450 X10^9/L MPV 7.6 7 - 12 fL Neutrophils % 56.7 % Lymphocytes % 28.5 % Monocytes % 8.9 % Eosinophils % 5.0 % Basophils % 0.9 % Neutrophils Absolute (A) 3.4 1.5 - 6.6 X10^9/L Lymphocytes Absolute 1.7 1.0 - 3.5 X10^9/L Monocytes Absolute 0.5 0.0 - 0.9 X10^9/L Eosinophils Absolute 0.3 0.0 - 0.4 X10^9/L Basophils Absolute 0.1 0.0 - 0.2 X10^9/L Differential Type AUTOMATED DIFFERENTIAL Radiology No results found. HOSPITAL PROBLEM LIST Principal Problem: Vomiting, unspecified vomiting type, unspecified whether nausea present Active Problems: Seizures (CMS-HCC) Mental retardation JOSÉ MIGUEL (acute kidney injury) Metabolic acidosis Hypokalemia Nausea and vomiting ASSESSMENT & PLAN JOSÉ MIGUEL and multiple electrolyte abnormalities low potassium, low Co2 secondary to Nausea and vomiting with distention on imaging -general surgery following -previous surgical history included intussusception as an infant and recurrent small-bowel obstructions some treated with surgery home notes -was admitted 12/29-01/01 here at [facility] for small-bowel obstruction -continue with Reglan every 8 hours -Cdiff and GI panel- both normal -bladder scan every [address] will if > 300ml add u/a -WBC 6.0 (7.2) (11.7) improving suspect bump up from dehydration -Midline placed 01/05 -Creatinine improving 0.97 (1.27) (2.16) -EGD w/ biopsy 01/06- gastritis, esophagitis, bx results pending -Advanced to pureed diet, tolerating fine MRDD History of seizure disorder -continue PO seizure medications -seizure precautions in place as he is normally on -valium r/s for abortive med in case seizure with seizure threshold likely being down with acute illness Hypokalemia K 3.8 Replace per protocol VTE chemoprophylaxis: heparin SQ. DC planning: medically stable to go back to [facility], possibly today or tomorrow RALPH Rodrigez 01/07/2025 3:34 PM [facility] Internal Medicine 7AM-7PM & 7PM-7AM: EpicChat or page through On-Call Finder. Physician Attestation: I have reviewed the above note authored by the Advance Practice Provider (MEMO) including history, review of systems, physical examination, medical decision making and agree with the assessment & plan. I have personally performed a face to face diagnostic evaluation on this patient. I have reviewed all laboratory findings and imaging reports/films. I have independently evaluated the patient and repeated gee portions of the physical exam. I agree with the MEMO plan as above, unless otherwise noted. ROSARIO GE MD * Rosario Ge MD - 01/06/2025 9:00 AM EST Images from the original note were not included. [facility] YULIA GREGORY [facility] INTERNAL [facility]IC[facility] [address] [place] [id number] Hospital Medicine Progress Note Patient: Amol Taylor Date of : 1955 Room: PCP: CARSON DIOR MD Admission date: 01/04/2025 1:05 PM Encounter date: 01/06/25 Hospital Day: 3 SUBJECTIVE Interval History: Status: stable. No overnight events. Pt had EGD this morning. Pt resting in bed comfortably. Advanced to clear liquid diet, may advance as tolerated per gen surg. Not complaining of any nausea or vomiting. Review of Systems Constitutional: Negative for activity change, appetite change, chills, fatigue, fever and unexpected weight change. HENT: Negative for congestion, dental problem, hearing loss, rhinorrhea, sore throat, trouble swallowing and voice change. Eyes: Negative for visual disturbance. Respiratory: Negative for cough, shortness of breath and wheezing. Cardiovascular: Negative for chest pain, palpitations and leg swelling. Gastrointestinal: Negative for abdominal pain, blood in stool and constipation. Genitourinary: Negative for difficulty urinating, dysuria, enuresis, frequency and hematuria. Musculoskeletal: Negative for arthralgias, joint swelling and myalgias. Skin: Negative for color change, rash and wound. Neurological: Negative for dizziness, seizures, syncope, speech difficulty, weakness, numbness and headaches. Hematological: Negative for adenopathy. Does not bruise/bleed easily. Psychiatric/Behavioral: Negative for dysphoric mood and sleep disturbance. The patient is not nervous/anxious. OBJECTIVE BP 113/41 Pulse 68 Temp 36.9 C (98.5 F) (Tympanic) Resp 18 Ht 175.3 cm (5' 9 ) Wt 94.6 kg(208 lb 8 oz) SpO2 97% BMI 30.79 kg/m Temp: [36.4 C (97.6 F)-36.9 C (98.5 F)] 36.9 C (98.5 F) Pulse: [63-78] 68 Resp: [16-24] 18 BP: (100-132)/(40-72) 113/41 SpO2: [95 %-100 %] 97 % O2 Device: None (Room air) Intake/Output Summary (Last 24 hours) at 01/06/2025 1341 Last data filed at 01/06/2025 1249 Gross per 24 hour Intake 2120.92 ml Output 650 ml Net 1470.92 ml Physical Exam Constitutional: General: He is not in acute distress. Appearance: Normal appearance. He is well-developed. HENT: Head: Normocephalic and atraumatic. Right Ear: External ear normal. Left Ear: External ear normal. Nose: Nose normal. Mouth/Throat: Lips: [place]. Mouth: Mucous membranes are moist. Pharynx: Oropharynx is clear. Eyes: General: No scleral icterus. Pupils: Pupils are equal, round, and reactive to light. Neck: Vascular: No JVD. Cardiovascular: Rate and Rhythm: Normal rate and regular rhythm. Pulses: Radial pulses are 2+ on the right side and 2+ on the left side. Heart sounds: Normal heart sounds, S1 normal and S2 normal. No murmur heard. No friction rub. No gallop. Pulmonary: Effort: Pulmonary effort is normal. Breath sounds: Normal breath sounds. No decreased breath sounds, wheezing, rhonchi or rales. Abdominal: General: Bowel sounds are normal. Palpations: Abdomen is soft. Tenderness: There is no abdominal tenderness. Musculoskeletal: Right lower leg: No edema. Left lower leg: No edema. Skin: General: Skin is warm and dry. Capillary Refill: Capillary refill takes less than 2 seconds. Findings: No erythema, rash or wound. Neurological: General: No focal deficit present. Mental Status: He is alert and oriented to person, place, and time. Psychiatric: Attention and Perception: Attention normal. Mood and Affect: Mood and affect normal. Behavior: Behavior normal. Behavior is cooperative. Medications Scheduled: calcium carbonate, 200 mg, oral, BID ciprofloxacin, 400 mg, intravenous, Q12H [START ON 01/07/2025] finasteride, 5 mg, oral, Daily heparin (porcine), 5,000 Units, subcutaneous, Q8H DAR lacosamide, 150 mg, oral, BID Lactobacillus acidophilus, 1 capsule, oral, BID with meals [START ON 01/07/2025] lamoTRIgine, 400 mg, oral, Daily lamoTRIgine, 600 mg, oral, Nightly latanoprost, 1 drop, both eyes, Nightly [START ON 01/07/2025] levETIRAcetam, 1,500 mg, oral, Daily levETIRAcetam, 2,000 mg, oral, HS [START ON 01/07/2025] magnesium oxide, 400 mg, oral, Daily meclizine, 25 mg, oral, Daily metoclopramide, 5 mg, intravenous, Q6H pantoprazole, 40 mg, intravenous, Q24H DAR primidone, 250 mg, oral, Daily primidone, 375 mg, oral, Nightly [COMPLETED] Consult PICC nurse - Midline, , , Once AND sodium chloride, 10 mL, intravenous, Q12H AND sodium chloride, 10 mL, intravenous, PRN AND sodium chloride, 20 mL, intravenous, PRN tamsulosin, 0.4 mg, oral, BID Infusions: As Needed: acetaminophen albuterol alum-mag hydroxide-simeth benzonatate hydrOXYzine LORazepam magnesium sulfate magnesium sulfate melatonin ondansetron potassium chloride OR potassium chloride OR potassium chloride IV (Adult) [COMPLETED] Consult PICC nurse - Midline AND sodium chloride AND sodium chloride AND sodium chloride sodium chloride Allergies: Penicillins, Sodium hypochlorite, Bleach (sodium hypochlorite), Tree nuts, and Clindamycin Code Status: Full Code Labs Recent Results (from the past 24 hours) Urinalysis Collection Time: 01/06/25 12:02 AM Specimen: Urine, Clean Catch Midstream Result Value Ref Range COLOR Yellow Yellow TURBIDITY Clear Clear SPECIFIC GRAVITY 1.025 1.003 - 1.035 NITRITE Positive (A) Negative PH,URINE 6.0 5.0 - 8.5 LEUKOCYTE ESTERASE Small (A) Negative PROTEIN Trace (A) Negative KETONES (URINE) Negative Negative UROBILINOGEN 0.2 eu/dL 0.2 eu/dL, 1.0 eu/dL BILIRUBIN (URINE) Negative Negative BLOOD/HGB Small (A) Negative R.B.CELLS 3 0 - 5 SQUAMOUS EPITHELIUM 2 0 - 5 W.B.CELLS 10 (H) 0 - 5 GLUCOSE (URINE) Negative Negative, 250 mg/dL Comprehensive metabolic panel Collection Time: 01/06/25 6:24 AM Result Value Ref Range SODIUM 143 134 - 146 mmol/L POTASSIUM 3.4 (L) 3.5 - 5.0 mmol/L CHLORIDE 111 (H) 98 - 109 mmol/L CARBON DIOXIDE 22 22 - 32 mmol/L ANION GAP 10 5 - 15 mmol/L BLOOD UREA NITROGEN 26 5 - 27 mg/dL CREATININE 1.27 (H) 0.70 - 1.20 mg/dL GLUCOSE 83 65 - 99 mg/dL CALCIUM 8.1 (L) 8.5 - 10.5 mg/dL TOTAL PROTEIN 6.3 6.0 - 8.0 g/dL ALBUMIN 3.0 (L) 3.2 - 5.3 g/dL ALKALINE PHOSPHATASE 112 39 - 130 U/L AST 15 <=41 U/L ALT 15 <=40 U/L BILIRUBIN,TOTAL 0.6 0.3 - 1.2 mg/dL EGFR Non-Race Dependent 62 >=60 ml/min/1.73sq.m Magnesium Collection Time: 01/06/25 6:24 AM Result Value Ref Range MAGNESIUM 2.1 1.8 - 2.6 mg/dL CBC auto differential Collection Time: 01/06/25 6:24 AM Result Value Ref Range WBC 7.2 4 - 11 x10E9/L RBC Count 3.55 (L) 4.1 - 5.7 X10E12/L Hemoglobin 11.2 (L) 13 - 17 g/dL Hematocrit 33.7 (L) 39 - 50 % MCV 95 80 - 100 fL MCH 31.5 27 - 34 pg MCHC 33.2 32 - 36 g/dL RDW 13.6 11.5 - 15 % Platelet Count 231 150 - 450 X10E9/L MPV 8.1 7 - 12 fL Neutrophils % 66.4 % Lymphocytes % 20.8 % Monocytes % 7.8 % Eosinophils % 4.3 % Basophils % 0.7 % Neutrophils Absolute (A) 4.8 1.5 - 6.6 10*3/uL Lymphocytes Absolute 1.5 1.0 - 3.5 10*3/uL Monocytes Absolute 0.6 0.0 - 0.9 10*3/uL Eosinophils Absolute 0.3 0.0 - 0.4 10*3/uL Basophils Absolute 0.0 0.0 - 0.2 10*3/uL Differential Type AUTOMATED DIFFERENTIAL Radiology EGD Report Result Date: 01/06/2025 This order has been auto-finalized for image and report archival in PACs. *For full report details,please reach out to your physician. This image is visible to you in MyChart.* HOSPITAL PROBLEM LIST Principal Problem: Vomiting, unspecified vomiting type, unspecified whether nausea present Active Problems: Seizures (CMS-HCC) Mental retardation JOSÉ MIGUEL (acute kidney injury) Metabolic acidosis Hypokalemia Nausea and vomiting ASSESSMENT & PLAN JOSÉ MIGUEL and multiple electrolyte abnormalities low potassium, low Co2 secondary to Nausea and vomiting with distention on imaging -general surgery following -NG removed -previous surgical history included intussusception as an and recurrent small-bowel obstructions some treated with surgery home notes -was admitted 12/29-01/01 here at [facility] for small-bowel obstruction -continue with Reglan every 8 hours -Cdiff and GI panel pending -bladder scan every [address] will if > 300ml add u/a -WBC 7.2 (11.7) (13.5) improving suspect bump up from dehydration -Midline placed 01/05 -Creatinine improving 1.27 (2.16) -EGD w/ biopsy today- gastritis, esophagitis, bx results pending -Advanced to clear liquids, advance diet as tolerated MRDD History of seizure disorder -restarted PO seizure medications -seizure precautions in place as he is normally on -will add valium r/s for abortive med in case seizure with seizure threshold likely being down withacute illness Hypokalemia K 3.4 today Replace per protocol VTE chemoprophylaxis: heparin SQ. DC planning: pending diet toleration RALPH Rodrigez 01/06/2025 1:41 PM [facility] Internal Medicine 7AM-7PM & 7PM-7AM: EpicChat or page through On-Call Finder. Physician Attestation: I have reviewed the above note authored by the Advance Practice Provider (MEMO) including history, review of systems, physical examination, medical decision making and agree with the assessment & plan. I have personally performed a face to face diagnostic evaluation on this patient. I have reviewed all laboratory findings and imaging reports/films. I have independently evaluated the patient and repeated gee portions of the physical exam. I agree with the MEMO plan as above, unless otherwise noted. ROSARIO GE MD * Irwin Ge DO - 01/06/2025 7:33 AM EST Obtained verbal consent from Ms. Susan Smith who is patient's sister and legal guardian. Shewanted to make us aware that he has a vagal nerve stimulator in place in his left armpit and it wasplaced because of his seizure disorder initially in 2004 and then the battery was replaced in 2020. I informed the guardian that we were to perform an EGD due to his unexplained nausea and vomiting and no evidence of bowel obstruction on most recent CT scan on Sunday01/04/2025. Risks benefits alternatives to an EGD may include perforation or bleeding. She understood all of that and wished for himto proceed. Anesthesia then spoke to the patient guardian. Impression: Unexplained nausea vomiting recurrent Nursing reports that he only had 350 cc out overnight per nasogastric tube and he is having stools.Denies any abdominal pain. Abdomen is soft. * Melba Linton, NNEKA - 01/05/2025 1:10 PM EST NUTRITION ADULT INITIAL EVALUATION NUTRITION ASSESSMENT Reason To Be Seen: RD identified due to recent readmission for nausea/vomiting possible SBO Hospital Occurrences: Pt admitted with nausea/ vomiting. NG to LWS with 1600 ml output, hx of MRDD,more lethargic noted, plans are for a EGD with possible biopsy for 01/06/25. Admit Diagnosis: Patient Active Problem List Diagnosis Seizures ([facility]) Mental retardation Class 2 obesity due to excess calories with body mass index (BMI) of 36.0 to 36.9 in adult Balance problem Osteoarthritis Left arm weakness Bowel obstruction ([facility]) Eczema Preventative health care BPH (benign prostatic hyperplasia) Osteopenia Seborrheic dermatitis Medicare annual wellness visit, subsequent Vitamin D deficiency Respiratory crackles Hospital discharge follow-up Small bowel obstruction ([facility]) Urinary retention Hypomagnesemia Leukocytosis GERD (gastroesophageal reflux disease) Vomiting, unspecified vomiting type, unspecified whether nausea present JOSÉ MIGUEL (acute kidney injury) Metabolic acidosis Hypokalemia Nausea and vomiting Past Medical History: Past Medical History: Diagnosis Date Abdominal hernia large but surgical risk Abnormal result of iron profile testing chronic ds Allergic Allergic rhinitis Balance problem falls with several fx// wears helment for protection Bowel obstruction ([facility]) 2016 and Oct BPH (benign prostatic hyperplasia) sees urology 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) // has a VNS implant which decreased grand mal seizures/ jerking episod weekly Uninodular goiter Urine incontinence Past Surgical History: Past Surgical History: Procedure Laterality Date CLAVICLE SURGERY COLONOSCOPY CYSTOCELE REPAIR 2016 EXCHANGE STIMULATOR BATTERY VAGAL NERVE N/A 03/23/2020 Performed by Nicola Mahan MD at [facility] 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 2004 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 REPAIR 7 months old SMALL INTESTINE SURGERY 1985, 1992, 1993 s/p diverticulitis; bowel obstruction x 2 Diet History: pt recently discharged with bowel obstruction last week which was resolved with bowelrest. Allergies: Allergies Allergen Reactions Penicillins Hives, Shortness Of Breath, Angioedema, Other (See Comments), Rash and Swelling Sodium Hypochlorite Hives and Itching Bleach (Sodium Hypochlorite) Itching Tree Nuts Clindamycin Rash Nutrition Focused Physical Findings-- No evidence of muscle wasting/malnutrition. 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) (01/04/252047) Edema: Labs: Results from last 3 days Lab Units 01/05/25 0518 01/04/25 1716 01/03/25 1231 SODIUM mmol/L 143 140 138 POTASSIUM mmol/L 3.4* 3.6 3.3* CHLORIDE mmol/L 110* 107 106 CO2 mmol/L 18* 18* 22 BUN mg/dL 31* 26 19 CREATININE mg/dL 2.59* 2.22* 1.03 CALCIUM mg/dL 8.7 9.4 8.7 ALBUMIN g/dL 3.8 4.4 3.7 ALK PHOS U/L 134* 150* 136* ALT U/L 18 23 21 AST U/L 12 16 20 Results from last 7 days Lab Units 01/05/25 0518 01/04/25 1716 01/03/25 1231 12/31/24 1323 12/30/24 0451 12/29/24 1717 GLUCOSE mg/dL 104* 132* 86 80 97 126* Results from last 3 days Lab Units 01/05/25 0518 01/03/25 1231 MAGNESIUM mg/dL 1.9 1.8 No data from last 3 days. Results from last 3 days Lab Units 01/05/25 0518 01/04/25 1716 01/03/25 1231 WBC x10E9/L 11.7* 13.5* 8.5 HEMOGLOBIN g/dL 13.8 14.9 12.8* HEMATOCRIT % 41.7 44.9 38.8* PLATELETS X10E9/L 298 365 276 MCV fL 96 95 95 Lab Results Component Value Date [id number] 157 (L) 04/09/2023 Lab Results Component Value Date FOLATE >25.0 04/09/2023 Lab Results Component Value Date IRON 35 (L) 04/09/2023 TIBC 190 (L) 04/09/2023 FERRITIN 72 04/09/2023 Lab Results Component Value Date IRONSAT 18 (L) 04/09/2023 No results found for: HGBA1C No results found for: CHOL No results found for: HDL , LDL No results found for: LIPIDPROF No results found for: VIDHYDROX Medications/ Parenteral: Medications Prior to Admission Medication Sig Dispense Refill Last Dose/Taking acetaminophen (TYLENOL EXTRA STRENGTH) 500 mg tablet Take 1 tablet (500 mg total) by mouth every 6 (six) hours as needed for pain. Past Week albuterol (PROVENTIL HFA;VENTOLIN HFA) 90 mcg/actuation inhaler Inhale 2 puffs every 4 (four) hoursas needed for wheezing. 18 g 0 Past Week benzonatate (TESSALON PERLES) 100 mg capsule Take 1 capsule (100 mg total) by mouth 3 (three) timesa day as needed for cough. Past Week TAYE-GEST ANTACID 200 mg calcium (500 mg) chewable tablet Chew 1 tablet (200 mg total) and swallow in the morning and 1 tablet (200 mg total) before bedtime. Past Week diazePAM (DIASTAT ACUDIAL) 5-7.5-10 mg rectal kit Insert 20 mg into the rectum as needed for seizures (seizure > 15 minutes). Past Week finasteride (PROSCAR) 5 mg tablet Take 1 tablet (5 mg total) by mouth daily. 90 tablet 1 01/03/2025 Evening hydrOXYzine (ATARAX) 25 mg tablet Take 1 tablet (25 mg total) by mouth every 12 (twelve) hours as needed for itching. Past Week lamoTRIgine (LaMICtal) 200 mg tablet Take 2 tablets (400 mg total) by mouth every morning. 400mg Gladys and 600mg in evening 01/04/2025 Morning lamoTRIgine (LaMICtal) 200 mg tablet Take 3 tablets (600 mg total) by mouth nightly. 01/03/2025 Bedtime latanoprost (XALATAN) 0.005 % ophthalmic solution Administer 1 drop to both eyes nightly. 01/03/2025 levETIRAcetam (KEPPRA) 1000 mg tablet Take 2 tablets (2,000 mg total) by mouth once daily at bedtime. 30 tablet 0 01/03/2025 Bedtime levETIRAcetam (KEPPRA) 750 mg tablet Take 2 tablets (1,500 mg total) by mouth in the morning. 30 tablet 0 01/04/2025 Morning LINZESS 145 mcg capsule Take 1 capsule (145 mcg total) by mouth every morning before breakfast. 01/04/2025 Morning LORazepam (ATIVAN) 0.5 mg tablet Take 1 tablet (0.5 mg total) by mouth every 8 (eight) hours as needed for anxiety. Past Week magnesium oxide (MAGOX) 400 mg tablet Take 1 tablet (400 mg total) by mouth in the morning. 30 tablet 0 01/04/2025 meclizine (ANTIVERT) 25 mg tablet Take 1 tablet (25 mg total) by mouth daily. 30 tablet 0 01/04/2025 melatonin 3 mg capsule Take 1 capsule by mouth nightly as needed (insomnia). 01/03/2025 nystatin (MYCOSTATIN) cream Apply 1 Application topically as needed (Apply topically to affected area twice daily as needed). Taking As Needed olopatadine (PATADAY) 0.2 % drops Instill 1 drop to eye in the morning. 01/04/2025 Morning ondansetron ODT (ZOFRAN-ODT) 4 mg disintegrating tablet Dissolve 1 tablet (4 mg total) on tongue every 12 (twelve) hours as needed for nausea or vomiting. 60 tablet 1 Past Week pantoprazole (PROTONIX) 40 mg EC tablet Take 1 tablet (40 mg total) by mouth in the morning. 01/04/2025 Morning polyethylene glycol (GLYCOLAX) 17 gram packet Take 17 g by mouth 2 (two) times a day as needed (constipation). Past Week primidone (MYSOLINE) 250 mg tablet Take 1 tablet (250 mg total) by mouth in the morning. 01/04/2025 Morning primidone (MYSOLINE) 250 mg tablet Take 1.5 tablets (375 mg total) by mouth nightly. 01/03/2025 Bedtime Saccharomyces boulardii (FLORASTOR) 250 mg capsule Take 1 capsule (250 mg total) by mouth in the morning. 01/03/2025 SENEXON-S 8.6-50 mg Take 2 tablets by mouth in the morning. 01/04/2025 Morning tamsulosin (FLOMAX) 0.4 mg capsule,extended release 24hr Take 1 capsule (0.4 mg total) by mouth 2 (two) times a day. 180 capsule 1 01/04/2025 Morning VIMPAT 150 mg tablet Take 1 tablet (150 mg total) by mouth 2 (two) times a day. 60 each 0 01/04/2025Morning Current Facility-Administered Medications Medication Dose Route Frequency Provider Last Rate Last Admin acetaminophen (TYLENOL) tablet 650 mg 650 mg oral Q6H PRN RALPH Zavala albuterol (PROVENTIL,VENTOLIN) nebulizer solution 2.5 mg 2.5 mg nebulization Q6H PRN RALPH Ivey alum-mag hydroxide-simeth (MAALOX) 200-200-20 mg/5 mL suspension 30 mL 30 mL oral PCHSP RALPH Zavala heparin (porcine) injection 5,000 Units 5,000 Units subcutaneous Q8H [facility] RALPH Ivey lacosamide (VIMPAT) 10 mg/mL solution 150 mg 150 mg oral BID MICHELLE Ivey CNP 150 mg at 01/05/25 1026 levETIRAcetam (KEPPRA) 1,000 mg in sodium chloride 0.9 % 110 mL IVPB 1,000 mg intravenous Q12H [facility] RALPH Ivey Stopped at 01/05/25 1022 LORazepam (ATIVAN) injection 2 mg 2 mg intravenous Q4H PRN MICHELLE IveyOTONIEL magnesium sulfate IVPB 2000 mg/50 mL in iso-osmotic water (40 mg/mL premix) 2,000 mg intravenous PRN Gregoria Jiang APRN-PATTERN PAINTER Stopped at 01/05/25 1206 magnesium sulfate IVPB 4000 mg/100 mL in iso-osmotic water (40 mg/mL premix) 4,000 mg intravenous PRN Gregoria Jiang APRN-OTONIEL metoclopramide (REGLAN) injection 5 mg 5 mg intravenous Q6H Irwin Ge DO 5 mg at 01/05/25 1028 ondansetron (PF) (ZOFRAN) injection 4 mg 4 mg intravenous Q4H PRN Gregoria Jiang APRN-OTONIEL pantoprazole (PROTONIX) injection 40 mg 40 mg intravenous Q24H DAR Shruthi Rodriguez APRN-PATTERN PAINTER 40 mg at 01/05/25 1032 potassium chloride (K-TAB,KLOR-CON) CR tablet 30-50 mEq 30-50 mEq oral PRN RALPH Zavala Or potassium chloride (KAYCIEL) 20 mEq/15 mL solution 30-50 mEq 30-50 mEq oral PRN RALPH Zavala Or potassium chloride IVPB 10 mEq/100 mL in water (0.1 mEq/mL premix) 10 mEq intravenous PRN Gregoria Jiang APRN-OTONIEL Stopped at 01/05/25 1232 sodium chloride 0.9 % bolus 1,000 mL intravenous Once Rosario Ge MD 492 mL/hr at 01/05/25 28890,000 mL at 01/05/25 1234 sodium chloride 0.9 % flush 10 mL 10 mL intravenous Q12H Shruthi Rodriguez APRN-PATTERN PAINTER 10 mL at 01/05/25 1000 And sodium chloride 0.9 % flush 10 mL 10 mL intravenous PRN Shruthi Rodriguez APRN-OTONIEL And sodium chloride 0.9 % flush 20 mL 20 mL intravenous PRN Shruthi Rodriguez APRN-PATTERN PAINTER sodium chloride 0.9 % flush 3 mL 3 mL intravenous PRN Shruthi Valdes APRN-PATTERN PAINTER sodium chloride 0.9 % infusion 100 mL/hr intravenous Continuous Shruthi Rodriguez APRN-PATTERN PAINTER 100 mL/hr at103/07/24 1007 100 mL/hr at 01/05/25 1007 Nutrition Findings/Summary: noted decrease of weight 6 # since last hospital admission. Anthropometrics: Ht Readings from Last 1 Encounters: 01/04/25 175.3 cm (5' 9 ) Wt Readings from Last 10 Encounters: 01/04/25 94.6 kg (208 lb 8 oz) 01/03/25 97.1 kg (214 lb) 01/01/25 97.2 kg (214 lb 4.8 oz) 10/22/24 97.1 kg (214 lb) 10/19/24 97.5 kg (214 lb 14.4 oz) 10/12/24 103 kg (227 lb 1.2 oz) 10/09/24 99.8 kg (220 lb) 04/20/23 80 kg (176 lb 5.9 oz) 04/07/23 78.7 kg (173 lb 8 oz) 02/15/23 81.7 kg (180 lb 3.2 oz) [place] Body Weight: 72.3 kg Percent [place] Body Weight: 131 % Body Mass Index: Body mass index is 30.79 kg/m . BMI Category: Obese class 1 (30.00- 34.99) Diet/ Nutrition Order Review: Dietary Orders (From admission, onward) Start Ordered 01/04/252323 Adult diet NPO Diet effective now Question: Diet Type: Answer: NPO 01/04/252322 Diet Intakes: npo [] 75-100% [] 50-75% [] 25-50% [] <25% [x] NPO [] Unable to assess Intake/ Output Last 24 hrs: Intake/Output Summary (Last 24 hours) at 01/05/2025 1310 Last data filed at 01/05/2025 1239 Gross per 24 hour Intake 1033.11 ml Output 1400 ml Net -366.89 ml Oral Supplemental Intake/ Acceptance: npo [] 75-100% [] 50-75% [] 25-50% [] <25% [x] NPO [] Unable to assess Malnutrition Status: Malnutrition Present: No [place] Body Weight (64 kg) used to estimate nutrition needs Estimated Energy Needs: ~4149-3302 kcals daily. Method and weight used: 25-32 kcal/kg IBW Estimated Protein Needs: ~77-128 grams daily. Method and weight used: 1.2-2.0 gm/kg IBW Estimated Fluid Needs: ~0187-2198 ml daily. Method Used: 1 ml/kcal General Needs: NUTRITION DIAGNOSIS: Intake Diagnosis: Inadequate protein-energy intake (NI 5.3) related to altered GI function as evidenced by NPO status and gastric distention. NUTRITION INTERVENTIONS: Coordination of nutrition care: spoke with RN, and clinical care huddle GOALS: Patient to meet calorie and protein needs RECOMMENDATIONS: advance diet as able and or initiate nutrition support prn. NUTRITION MONITORING AND EVALUATION: Will monitor NPO status,, Weights, Nutrition Related Labs, POC& Follow. [] Progressing toward goal [x] Not progressing [] Progress toward goal declining [] Goal achieved Melba Linton RD.,LD. Clinical Dietitian [facility] [phone] 01/05/25 * Ana Sol RPH - 01/05/2025 9:24 AM EST [facility] Department of Pharmacy Pharmacist to Physician Communication The dose of metoclopramide has been changed to 5 mg every 6 hours per the [facility] approved renal dosingguidelines, based on an estimated creatinine clearance is 27.3 mL/min (A) (by C-G formula based on SCr of 2.59 mg/dL (H)). Thank you, Ana Sol RPH [facility] Progress note* PT/OT/REGULATORY ADMINISTRATOR - Татьяна Anthony PTA - 01/07/2025 8:26 AM EST Physical Therapy Treatment Discharge Recommendations for Safe Patient Transition PT Discharge Disposition Recommendation: [facility] (As long as able to provide patient with level of assist required.) PT Therapy Recommendations: Home Physical Therapy Current Impairments Informing Therapy Recommendation: Ambulation status/safety, Cognition, Fall risk, ADL status, Endurance level Frame Gate Mortiser Operator Support for-: Mobility Deficits, ADL Deficits, Cognitive Impairments 6 Clicks: Basic Mobility Turning from your back to your side while in a flat bed without using bed rails?: A little Moving from lying on your back to sitting on side of flat bed without using bed rails?: A little Moving to and from bed to a chair (including w/c)?: A little Standing up from a chair using your arms (e.g. w/c or bedside chair)?: A lot To walk in hospital room?: A lot Climbing 3-5 steps with a railing?: A lot Scoring 6 Clicks: Basic Mobility Raw Score: 15 CMS G Code Modifier: CK PT Treatment/Interventions: Functional transfer training, LE strengthening/ROM, Endurance training,Balance, Bed mobility, Gait training, Functional activities, Neuromuscular reeducation PT Frequency: 2-3days/week PT Duration: 10 days Assessment Patient Assessment Therapy Problem List: Decreased ADL status, Decreased balance, Decreased mobility, Decreased safe judgement during ADL, Decreased self-care trans, Decreased LE ROM, Decreased LE strength Patient Response to Treatment: Slow progress, cognitive deficits Mood/Affect: Impulsive Rehab Prognosis: Fair, Guarded, 24 hour supervision recommended Visit RN Communication: Yes Medical Record Reviewed: Yes PT Type of Visit: Treatment Precautions Activity: Early mobility: pass. Appropriate to tx per RNKulwinder. Equipment: non skid socks, bed and chair alarm, helmet when OOB (Patient refused application of gait belt and use of RW.) Telemetry/Talcer: Yes Oxygen Order : Room air. Other: fall risk, history of MRDD Subjective Physical Therapy Comments: Patient refused application of gait belt and use of RW although encouraged. I'm fine, I'm fine . Pain Assessment Pain Assessment: No/denies pain Hearing / Speech / Vision Hearing: Within Functional Limits Speech: Garbled, Delayed responses (history of MRDD) Current Vision: Other (Comment) (unknown, no glasses noted in room.) Cognition Orientation Level: Oriented to person, Disoriented to situation, Disoriented to place, Disoriented to age Bed Mobility Rolling: Contact guard assist, Left (HOB slightly elevated.) Supine to Sit: Min assist, Left (HOB slightly elevated.) Sit to Supine: Unable to assess (Patient sitting in recliner post therapy session.) Other: Patient performed bed mobility of supine to seated position, min assist. Verbal and tactile cues expressed of body mechanics and use of bedrail to assist in transition ease. Poor patient follow through. Transfers Sit to Stand: Min assist (Patient impulsive with standing and does not allow gait belt to be placed. Declines use of RW although placed in front of patient.) Stand to Sit: Min assist Bed to Chair: Max assist (SPT; poor patient tolerance to standing.) Stand Pivot Transfers: Max assist (Bed to recliner.) Other: Patient performed x3-4 reps, min assist for patient safety. Verbal cues expressed of proper hand placement with patient actively using R UE to assist in transition ease. Posterior lean noted with cues expressed to assist patient in full upright position, poor patient follow through with patient typically returning to seated position following. Heavy SPT completed from bed to recliner surface, patient expressing the nonskid socks are slippery with poor curator of photography and prints causing poor mobility of LE's. Fwd lean evident as performed SPT. Verbal cues expressed throughout transfer for patient participation in SPT. (Educated RNKulwinder on SPT and placing recliner close to bed surface once patient is ready to return to bed.) Gait Other: Not appropriate at this time. Poor standing tolerance with slight posterior lean. Patient very impulsive with poor safety awareness. Max assist required at this time for SPT. Balance Sitting Balance: Static: Fair Sitting Balance: Dynamic: Fair (-) Standing Balance: Static: Poor Standing Balance: Dynamic: Poor Other: Posterior lean evident upon static standing. Increased unsteadiness noted throughout standing, min assist throughout except while performing a SPT with max assist then required. Activity Tolerance Endurance: Tolerates <30 minutes activity WITHOUT vital sign changes Other: Rest breaks required to orient patient to tasks wanting to be performed and safety awareness. Poor standing static activity tolerance of 10-30 intervals x4. 01/07/25 0826 LE Seated LE seated exercises performed? Yes Long arc quads x Seated marching x Other AROM; Patient instructed in LE ther ex program to promote strength and mobility for ease of bed mobility and transfers. Verbal cues with visual demonstration provided of exercise form. Poor full ROM noted throughout exercises although cues expressed. Repetitions 10 x2 Patient sitting upright in recliner; CHAIR ALARM ON; Call light/tray table within reach; Communicated with RN on summary of tx and patient location. Plan Physical Therapy Care Plan Physical Therapy Care Plan (Active) Template: PT - Physical Therapy Problem: Activity Tolerance Dates: Start: 01/06/25 Disciplines: PT Goal: Tolerate 30 minutes of activity WITH rest breaks Dates: Start: 01/06/25 Expected End: 01/15/25 Description: Goal Description: to participate in LE strengthening for increased ease of mobility and reduced caregiver burden. Disciplines: PT Outcomes Date/Time User Outcome 01/07/25 0851 Татьяна Anthony PTA Not Progressing Problem: Bed Mobility Dates: Start: 01/06/25 Disciplines: PT Goal: Patient will perform bed mobility with Minimum Assist Dates: Start: 01/06/25 Expected End: 01/15/25 Description: Goal Description: from head of bed flat, no rail, as per home set-up. Disciplines: PT Outcomes Date/Time User Outcome 01/07/25 0851 Татьяна Anthony PTA Not Progressing Goal Note filed on 01/07/25850 by Татьяна Anthony PTA Min assist. Problem: Sitting Balance Dates: Start: 01/06/25 Disciplines: PT Goal: Improve balance to good Dates: Start: 01/06/25 Expected End: 01/15/25 Description: Dynamic to reduce fall risk during functional mobility. Disciplines: PT Outcomes Date/Time User Outcome 01/07/2551 Татьяна Anthony PTA Not Progressing Problem: Transfers Dates: Start: 01/06/25 Disciplines: PT Goal: Patient will perform transfers with Minimum Assist Dates: Start: 01/06/25 Expected End: 01/15/25 Description: Goal Description: with least restrictive device do to improving LE strength. Disciplines: PT Outcomes Date/Time User Outcome 01/07/2551 Татьяна Anthony PTA Not Progressing Physical Therapy Care Plan (Resolved) There are no resolved problems. Principal Problem: Vomiting, unspecified vomiting type, unspecified whether nausea present Active Problems: Seizures (CMS-HCC) Mental retardation JOSÉ MIGUEL (acute kidney injury) Metabolic acidosis Hypokalemia Nausea and vomiting Cosigned by Reva Stanley PT at 01/07/2025 1:22 PM EST Associated attestation - Reva Stanley PT - 01/07/2025 1:22 PM EST I have reviewed and agree with this note and education documentation for this visit. [facility]11-05-2025 Nurse Note* Nola Solo RN - 01/07/2025 6:02 AM EST 2 attempts were made to draw blood from pt's midline and blood could not be drawn. [facility]11-04-2025 Plan of care note* Plan of Care - Nola Solo RN - 01/06/2025 7:37 PM EST Problem: Pain Goal: Patient goal is pain score less than 4, able to rest, and participant in treatment plan as appropriate Description: INTERVENTIONS: 1. Encourage patient or legal mortician supplies sales representative to report early pain and ask [...] per policy 9. Teach patient or legal mortician supplies sales representative interventions for comforting Outcome: Progressing Note: Evaluation of progress towards goal: Pt able to report pain according to 0/10 pain scale. Medicating patient for pain per orders. Problem: Safety Goal: Patient will be injury free during hospitalization Description: INTERVENTIONS: 1. Assess patient's risk for falls and implement fall prevention plan of care per policy 2. Provide and maintain a safe environment 3. Proper use of double Identifiers 4. Medication administration using the 5 rights 5. Hand hygiene 6. Specimens are labeled at the bedside 7. Instruct patient/ patient mortician supplies sales representative about use of safety devices 8. Include patient/ patient mortician supplies sales representative in decisions related to safety Outcome: Progressing Note: Evaluation of progress towards goal: Pt's risk for falls assessed and fall prevention implemented as needed, safe environment provided and maintained, hand hygiene completed. [facility] [id number] Progress note* Significant Event - Radha Fernandes RN - 01/06/2025 6:07 PM EST Unable to draw off of patient's midline. Lab was notified to try and collect off of patient. t3n [id number] Progress note* Significant Event - Radha Fernandes RN - 01/06/2025 6:05 PM EST Patient declined the RN to perform VS at this time. Patient is at baseline mentation and cooperative. He just wants food. Patient's food had just arrived at the bedside Dang Le [id number] Progress note* PT/OT/REGULATORY ADMINISTRATOR - Niurka Gonzalez OTR/Jie - 01/06/2025 2:35 PM EST Occupational Therapy Evaluation (Completed with PT in order to maximize patient's functional status) Discharge Recommendations for Safe Patient Transition OT Discharge Disposition Recommendation: [facility] (return to [facility] as long as they can provide the assist that pt requires.) OT Therapy Recommendations: Home Occupational Therapy Current Impairments Informing Therapy Recommendation: Ambulation status/safety, Cognition, Fall risk, ADL status, Endurance level Frame Gate Mortiser Operator Support for-: Mobility Deficits, ADL Deficits, Cognitive Impairments Therapy Plan Need for skilled Occupational Therapy to address deficits in ADL independence and functional mobility due to a status decline resulting from vomiting, possible SBO. A high complex eval was completed. Past Surgical History: Procedure Laterality Date CLAVICLE SURGERY COLONOSCOPY CYSTOCELE REPAIR 2016 EXCHANGE STIMULATOR BATTERY VAGAL NERVE N/A 03/23/2020 Performed by Nicola Mahan MD at [facility] 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 2004 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 REPAIR 7 months old SMALL INTESTINE SURGERY 1985, 1992, 1993 s/p diverticulitis; bowel obstruction x 2 Past Medical History: Diagnosis Date Abdominal hernia large but surgical risk Abnormal result of iron profile testing chronic ds Allergic Allergic rhinitis Balance problem falls with several fx// wears helment for protection Bowel obstruction ([facility]) 2016 and Oct BPH (benign prostatic hyperplasia) sees urology 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 Dysarthria clicking teeth, loud exhales, extra noises Dysphagia work up in progrss to r/o aspiration Eczema Fractures due to falls/ left leg x 2 // uses brace History of difficult intubation [facility] - 2016 Hydrocele of testis 2016 [...] jerking episod weekly Uninodular goiter Urine incontinence OT Treatment/Interventions: ADL retraining, Functional transfer training, UE strengthening/ROM, Endurance training, Cognitive reorientation, Patient/family training, Equipment eval/education, Balance, Home management, Compensatory technique education, Functional activities OT Frequency: 1-2days/week OT Duration: 10 days Assessment Patient Assessment Patient Response to Treatment: Tolerated evaluation without adverse reaction Mood/Affect: Appropriate for circumstances Rehab Prognosis: Fair, Guarded, 24 hour supervision recommended Visit RN Communication: Yes Medical Record Reviewed: Yes OT Type of Visit: Evaluation (Completed with PT in order to maximize patient's functional status) Precautions Activity: OK to eval per Radha BHATT Equipment: non skid socks, bed and chair alarm, helmet when OOB Telemetry/Talcer: No Oxygen Order : room air Other: fall risk, history of MRDD Pain Assessment Pain Assessment: No/denies pain Home Living Type of Home: Other (Comment) ([facility], [facility] per chart review) Prior Function Lives With: Other (Comment) (lives in a [facility]) Receives Help From: Other (Comment) (staff at [facility]) Other: prior level of function known ADL / IADL Eating Assistance: Mod assist Grooming Assistance: Mod assist Bathing/Showering Assistance: Total assist Toilet/Commode Assistance: Total assist UE Dressing Assistance: Mod assist LE Dressing Assistance: Total assist Footwear Assistance: Total assist Footwear Deficit: R sock, L sock (does not like socks on) Other: upon arrival RN and PCT assiting patient with sponge bath, assisted to change brief, linen, apply lotion to LE's while supine. once seated on EOB total assist to don helmet, but pt is able to dof with supervision Home Management - IADL Other: upon arrival RN and PCT assiting patient with sponge bath, assisted to change brief, linen, apply lotion to LE's while supine. once seated on EOB total assist to don helmet, but pt is able to dof with supervision Hearing / Speech / Vision Hearing: Within Functional Limits Speech: Garbled, Delayed responses (history of MRDD) Current Vision: (unknonwn) Cognition Orientation Level: Oriented to person Bed Mobility Rolling: Contact guard assist Supine to Sit: Min assist, Verbal cues Other: remains in chair at end of session Transfers Sit to Stand: Min assist (hand held assist) Stand to Sit: Min assist (hand held assist) Bed to Chair: Min assist (hand held assist) Other: completes sit to stand times 1 trial and then immediately sits down, 2nd trial hold therapists hand and then is able to transfer to to the chair with min assist Balance Sitting Balance: Static: Good Sitting Balance: Dynamic: Fair, Poor Standing Balance: Static: Fair, Poor Standing Balance: Dynamic: Poor RUE Assessment: (flexion contracture of hand) LUE Assessment: (flexion contracture of hand able to demo extension of digits spontaneously) Activity Tolerance Endurance: Tolerates <30 minutes activity WITHOUT vital sign changes Plan Occupational Therapy Care Plan Occupational Therapy Care Plan (Active) Template: OT - Occupational Therapy Problem: Activity Tolerance Dates: Start: 01/06/25 Disciplines: OT Goal: Tolerate > 30 minutes of activity WITH rest breaks Dates: Start: 01/06/25 Expected End: 01/15/25 Description: Goal Description:patient to engage in activities of choice with out changes in vitals in order to promote return to prior level of function Disciplines: OT Problem: Other (Customize) Dates: Start: 01/06/25 Disciplines: OT Goal: Improve Dates: Start: 01/06/25 Expected End: 01/15/25 Description: Goal Description:Patient to increase IND in ADls to mod assist in order to promote return to prior level of function Disciplines: OT Problem: Standing Balance Dates: Start: 01/06/25 Disciplines: OT Goal: Improve balance to good Dates: Start: 01/06/25 Expected End: 01/15/25 Description: Patient to increase standing balance to good in order to increase IND in ADLS and lower body dressing tasks Disciplines: OT Occupational Therapy Care Plan (Resolved) There are no resolved problems. Principal Problem: Vomiting, unspecified vomiting type, unspecified whether nausea present Active Problems: Seizures (CMS-HCC) Mental retardation JOSÉ MIGUEL (acute kidney injury) Metabolic acidosis Hypokalemia Nausea and vomiting [employer] Phone: [phone]) 691-109411-04-2025 Plan of care note* Plan of Care - Radha Fernandes RN - 01/06/2025 12:03 PM EST Problem: Potential for Compromised Skin Integrity Goal: Patient's nutritional intake is adequate Description: [...] supplement as ordered 13. Collaborate with clinical movie shot cameraman 14. Include patient/ patient's mortician supplies sales representative in decisions related to nutrition Outcome: Not Progressing Note: Evaluation of progress towards goal: Patient understands the importance of proper nutrition to aid in healing. Problem: Moderate - High Risk Fall Score Description: [place] Fall Score of =/> 25 or indicated by [facility] Assessment Goal: Patient should be free from fall Description: Interventions: 1. [place] to environment 2. Hourly rounds addressing the [...] non-skid footwear 11. Teach patient and patient mortician supplies sales representative to maintain environment for safety and [...] (cane, walker) within reach 19. Request patient mortician supplies sales representative bring adaptive equipment/mobility aids from home or obtain and provide as needed 20. Consult pharmacy regarding effects of med's affecting mobility, cognition, and alternatives 21. Obtain physician order for PT if risk factors associated with mobility are present 22. Obtain physician order for OT as appropriate 23. Utilize diversional activities 24. Educate patient and patient mortician supplies sales representative how to maintain a safe environment during visitationtimes (notify nurse prior to leaving bedside) 25. Consider appropriateness of medical or non-lead medical technologist 26. Set up voiding schedule as appropriate (every 2 hours) Outcome: Not Progressing Note: Evaluation of progress towards goal: Pt's risk for falls assessed and fall prevention implemented as needed, safe environment provided and maintained, hand hygiene completed. Problem: Potential for Compromised Skin Integrity Goal: Skin integrity is maintained or improved Description: Patient's goal is: INTERVENTIONS 1. Perform initial skin assessment on admission and as needed 2. Turn patient every 2 hours and PRN 3. Relieve pressure to bony prominences 4. Avoid shearing 5. Keep skin clean and dry 6. Alternate a full bath with partial baths for elderly 7. Apply lotion/moisturizer on skin 8. Monitor patient's hygiene practices 9. Float heels 10. Collaborate with interdisciplinary team and initiate plans and interventions as needed Outcome: Progressing Note: Evaluation of progress towards goal: Pt skin is clean and dry, skin assessed and monitored for new areas, shearing avoided. Problem: Urinary Incontinence Goal: Perineal skin integrity [...] Progressing Note: Evaluation of progress towards goal: Perineal skin kept clean and dry, privacy provided as needed, skin protectant applied as needed, labs monitored. Problem: Pain Goal: Patient goal is pain score less than 4, able to rest, and participant in treatment plan as appropriate Description: INTERVENTIONS: 1. Encourage patient or legal mortician supplies sales representative to report early pain and ask [...] per policy 9. Teach patient or legal mortician supplies sales representative interventions for comforting Outcome: Progressing Note: Evaluation of progress towards goal: Pt able to report pain according to 0/10 pain scale. Medicating patient for pain per orders. Problem: Safety Goal: Patient will be injury free during hospitalization Description: INTERVENTIONS: 1. Assess patient's risk for falls and implement fall prevention plan of care per policy 2. Provide and maintain a safe environment 3. Proper use of double Identifiers 4. Medication administration using the 5 rights 5. Hand hygiene 6. Specimens are labeled at the bedside 7. Instruct patient/ patient mortician supplies sales representative about use of safety devices 8. Include patient/ patient mortician supplies sales representative in decisions related to safety Outcome: Progressing Note: Evaluation of progress towards goal: Pt's risk for falls assessed and fall prevention implemented as needed, safe environment provided and maintained, hand hygiene completed. Problem: Infection Goal: Absence of infection during hospitalization Description: INTERVENTIONS 1. Assess and monitor for signs and symptoms of infection. 2. Monitor lab/diagnostic results. 3. Monitor all insertion sites i.e., indwelling lines, tubes and drains. 4. Monitor endotracheal (as able) and nasal secretions for changes in amount and color. 5. Administer medications as ordered. 6. Instruct and encourage patient and family to use good hand hygiene technique. 7. Identify and instruct patient/patient mortician supplies sales representative in use of appropriate isolation precautionsfor identified infection/symptoms. 8. Provide and discuss with patient/patient mortician supplies sales representative on educational MDRO sheet. 9. Encourage and monitor nutritional status daily and consult movie shot cameraman if indicated. 10. Implement neutropenic guidelines as needed. Outcome: Progressing Note: Evaluation of progress towards goal: Patient VS WNL, remains afebrile for shift. Continue to monitor. Problem: Discharge Planning Goal: Discharge to post-acute [...] Evaluation of progress towards goal: Continue to assess for when appropriate. Problem: Knowledge Deficit Goal: Patient/patient mortician supplies sales representative demonstrates understanding of disease process, treatment plan,medications, and discharge instructions Description: INTERVENTIONS 1. Complete learning assessment and assess knowledge base 2. Provide teaching at level of understanding 3. Provide teaching via preferred learning method(s) Outcome: Completed Note: Evaluation of progress towards goal: Baseline mentation. SongAfter11-04-2025 Progress note* PT/OT/REGULATORY ADMINISTRATOR - Reva Stanley, PT - 01/06/2025 11:06 AM EST Physical Therapy Evaluation (Performed wiht OT to maximize functional mobility outcomes and improve patient activitytolerance post EGD.) Discharge Recommendations for Safe Patient Transition PT Discharge Disposition Recommendation: [facility] (As long as able to provide patient with level of assist required.) PT Therapy Recommendations: Home Physical Therapy Current Impairments Informing Therapy Recommendation: Ambulation status/safety, Cognition, Fall risk, ADL status, Endurance level Frame Gate Mortiser Operator Support for-: Mobility Deficits, ADL Deficits, Cognitive Impairments 6 Clicks: Basic Mobility Turning from your back to your side while in a flat bed without using bed rails?: A little Moving from lying on your back to sitting on side of flat bed without using bed rails?: A little Moving to and from bed to a chair (including w/c)?: A little Standing up from a chair using your arms (e.g. w/c or bedside chair)?: A little To walk in hospital room?: A lot Climbing 3-5 steps with a railing?: A lot Scoring 6 Clicks: Basic Mobility Raw Score: 16 CMS G Code Modifier: CK Therapy Plan Need for skilled Physical Therapy to address deficits in functional mobility due to a status decline resulting from nausea, vomiting, suspected ileus. PT Treatment/Interventions: Functional transfer training, LE strengthening/ROM, Endurance training,Balance, Bed mobility, Gait training, Functional activities, Neuromuscular reeducation PT Frequency: 2-3days/week PT Duration: 10 days Assessment Patient Assessment Therapy Problem List: Decreased ADL status, Decreased balance, Decreased mobility, Decreased safe judgement during ADL, Decreased self-care trans, Decreased LE ROM, Decreased LE strength Patient Response to Treatment: Tolerated evaluation without adverse reaction Mood/Affect: Appropriate for circumstances Rehab Prognosis: Fair, Guarded, 24 hour supervision recommended Visit RN Communication: Yes Medical Record Reviewed: Yes PT Type of Visit: Evaluation (Performed wiht OT to maximize functional mobility outcomes and improve patient activity tolerance post EGD.) Past Medical History: Diagnosis Date Abdominal hernia large but surgical risk Abnormal result of iron profile testing chronic ds Allergic Allergic rhinitis Balance problem falls with several fx// wears helment for protection Bowel obstruction ([facility]) 2016 and Oct BPH (benign prostatic hyperplasia) sees urology 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 Dysarthria clicking teeth, loud exhales, extra noises Dysphagia work up in progrss to r/o aspiration Eczema Fractures due to falls/ left leg x 2 // uses brace History of difficult intubation [facility] - 2016 Hydrocele of testis 2016 [...] 03/23/2020 Performed by Nicola Mahan MD at 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 2004 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 REPAIR 7 months old SMALL INTESTINE SURGERY 1985, 1992, 1993 s/p diverticulitis; bowel obstruction x 2 Precautions Activity: OK to eval per RNRadha Equipment: non skid socks, bed and chair alarm, helmet when OOB Telemetry/Talcer: No Oxygen Order : room air Other: fall risk, history of MRDD Subjective Physical Therapy Comments: I don't want socks on. No. Pain Assessment Pain Assessment: No/denies pain Home Living Type of Home: Other (Comment) ([facility], [facility] per chart review.) Prior Function Lives With: Other (Comment) (lives in a [facility].) Receives Help From: Other (Comment) (staff at [facility].) Other: Prior level of function unknown. Patient a poor historian. Perseverates on not wearing socks. ADL / IADL Other: RN and PCT completing bed bath upon therapist arrival. Hearing / Speech / Vision Hearing: Within Functional Limits Speech: Garbled, Delayed responses (history of MRDD) Current Vision: Other (Comment) (unknown, no glasses noted in room.) Cognition Orientation Level: Oriented to person Bed Mobility Rolling: Contact guard assist (with use of bed rail L/R for brief change. Verbal cues to initiate.) Supine to Sit: Min assist, Verbal cues Other: Ends session in bedside chair, reclined, call button and bedside table within reach. Chair alarm intact. Denies further needs. Transfers Sit to Stand: Min assist (hand held assist. 2 attempts for success. Patient impulsive with standingand does not allow gait belt to be placed. Declines use of RW.) Stand to Sit: Min assist (Tactile and verbal cues for safe hand placement during transfers.) Bed to Chair: Min assist (hand held assist, patient with poor safety awareness and eccentric control. Impulsive.) Gait Other: Patient relates use of w/c at baseline. Impulsive and poor eccentric control with transfer to chair, 2 attempts for success, for gait assessment deferred for safety concerns at this time. Balance Sitting Balance: Static: Good Sitting Balance: Dynamic: Fair, Poor Standing Balance: Static: Fair, Poor Standing Balance: Dynamic: Poor RLE Assessment: (Functionally observed as at least 3/5 at hip, knee and ankle) LLE Assessment: (Functionally observed as at least 3/5 at hip, knee and ankle) Activity Tolerance Endurance: Tolerates <30 minutes activity WITHOUT vital sign changes Plan Physical Therapy Care Plan Physical Therapy Care Plan (Active) Template: PT - Physical Therapy Problem: Activity Tolerance Dates: Start: 01/06/25 Disciplines: PT Goal: Tolerate 30 minutes of activity WITH rest breaks Dates: Start: 01/06/25 Expected End: 01/15/25 Description: Goal Description: to participate in LE strengthening for increased ease of mobility and reduced caregiver burden. Disciplines: PT Problem: Bed Mobility Dates: Start: 01/06/25 Disciplines: PT Goal: Patient will perform bed mobility with Minimum Assist Dates: Start: 01/06/25 Expected End: 01/15/25 Description: Goal Description: from head of bed flat, no rail, as per home set-up. Disciplines: PT Problem: Sitting Balance Dates: Start: 01/06/25 Disciplines: PT Goal: Improve balance to good Dates: Start: 01/06/25 Expected End: 01/15/25 Description: Dynamic to reduce fall risk during functional mobility. Disciplines: PT Problem: Transfers Dates: Start: 01/06/25 Disciplines: PT Goal: Patient will perform transfers with Minimum Assist Dates: Start: 01/06/25 Expected End: 01/15/25 Description: Goal Description: with least restrictive device do to improving LE strength. Disciplines: PT Physical Therapy Care Plan (Resolved) There are no resolved problems. Principal Problem: Vomiting, unspecified vomiting type, unspecified whether nausea present Active Problems: Seizures (CMS-HCC) Mental retardation JOSÉ MIGUEL (acute kidney injury) Metabolic acidosis Hypokalemia Nausea and vomiting HOSPITAL SongAfter11-04-2025 [facility] Patient Name: Amol Taylor Procedure Date No Time: 01/06/2025 CSN : [id number] Date of : 1955 Admit Type: Outpatient Age: 69 Room: [place] [address] Gender: Male Note Status: Finalized Attending MD: Irwin Ge DO, Procedure: Upper GI endoscopy Indications: Nausea with vomiting Providers: Irwin Ge DO Medicines: Propofol per Anesthesia Complications: No immediate complications. Procedure: After obtaining informed consent, the endoscope was passed under direct vision. Throughout the procedure, the patient's blood pressure, pulse, and oxygen saturations were monitored continuously. The OLYMPUS [id number] #[id number] ADULT GASTROSCOPE was introduced through the mouth, and advanced to the fourth part of duodenum. The upper GI endoscopy was accomplished without difficulty. The patient tolerated the procedure well. Findings: The nasopharynx and oropharynx were normal. LA Grade A (one or more mucosal breaks less than 5 mm, not extending between tops of 2 mucosal folds) esophagitis with no bleeding was found 40 cm from the incisors. Biopsies were taken with a cold forceps for histology. Localized mild inflammation characterized by congestion (edema), erythema and granularity was found in the gastric fundus. Biopsies were taken with a cold forceps for histology. The examined duodenum was normal. Estimated Blood Loss: Estimated blood loss was minimal. Impression: - Normal nasopharynx and oropharynx. - LA Grade A reflux esophagitis with no bleeding. Rule out Blanco's esophagus. Biopsied. - Gastritis, characterized by congestion (edema), erythema and granularity. Biopsied. - Normal examined duodenum. Recommendation: - Await pathology results. - [facility] to [facility] care. - Advance diet as tolerated today. Procedure Code(s): --- Professional --- 10323, Esophagogastroduodenoscopy, flexible, transoral; with biopsy, single or multiple Diagnosis Code(s): --- Professional --- K21.00, Gastro-esophageal reflux disease with esophagitis, without bleeding K29.70, Gastritis, unspecified, without bleeding R11.2, Nausea with vomiting, unspecified CPT copyright 2022 [employer]. All rights reserved. The codes documented in this report are preliminary and upon pediatric critical care nurse review may be revised to meet current compliance requirements. DO Irwin Carcamo DO 01/06/2025 8:26:43 AM Number of Addenda: 0 Note Initiated On: 01/06/2025 7:26 AMPM [id number] Plan of care note* Plan of Care - Yolanda Gamino RN - 01/06/2025 2:19 AM EST Problem: Potential for Compromised Skin Integrity Goal: Skin integrity is maintained or improved Description: Patient's goal is: INTERVENTIONS 1. Perform initial skin assessment on admission and as needed 2. Turn patient every 2 hours and PRN 3. Relieve pressure to bony prominences 4. Avoid shearing 5. Keep skin clean and dry 6. Alternate a full bath with partial baths for elderly 7. Apply lotion/moisturizer on skin 8. Monitor patient's hygiene practices 9. Float heels 10. Collaborate with interdisciplinary team and initiate plans and interventions as needed Outcome: Progressing Note: Evaluation of progress towards goal: Patient is independent with turning and repositioning. Goal: Patient's nutritional intake is adequate Description: [...] supplement as ordered 13. Collaborate with clinical movie shot cameraman 14. Include patient/ patient's mortician supplies sales representative in decisions related to nutrition Outcome: Progressing Note: Evaluation of progress towards goal: Patient understands the importance of proper nutrition to aid in healing. SongAfter11-03-2025 Progress note* PT/OT/REGULATORY ADMINISTRATOR - Niurka Gonzalez, OTR/L - 01/05/2025 1:42 PM EST Occupational Therapy OT Type of Visit: Medical deferral Reason For Medical Deferral: Medical procedure ongoing (Mid line placement) OT to continue to follow. [facility]11-03-2025 Progress note* Discharge Planning Note - Gloria Rodriguez - 01/05/2025 1:10 PM EST DISCHARGE PLANNING NOTE January 13 at 11:30am Hospital follow up with CARSON DIOR MD Spoke with Evette [facility]11-03-2025 Hospital Discharge instructions* Appointments * Gloria Rodriguez - 01/05/2025 1:10 PM EST YOUR SCHEDULED APPOINTMENTS Please make note of this in your schedule as to not miss or call to reschedule. Thank you! January 13 at 11:30am Hospital follow up with CARSON DIOR MD PCP - General Family Medicine [phone] [place] [address] [address] [facility] [id number] Pt. should bring the following to appointment; Discharge paperwork Picture ID, Insurance card, co-pay, and all current medications in their bottles. Please provide a 24 hour notice for cancellation. Failure to do so will result in the practice declining to see pt. in the future. If you have insurance copay you must bring with you to the appointment. Please arrive about 15 minutes prior to appointment for check-in/registration. For NEW PATIENT APPOINTMENTS, please arrive 30 minutes early to complete new patient paperwork. For NEW patients, MD will not prescribe alf pain medication. [facility] Plan of care note * Plan of Care - Dimas Jackman RPH - 01/05/2025 12:38 PM EST Problem: Medication Description: If medication is necessary, use low-risk medication that does not interfere with what matters to the older adult patient, mobility, or mentation across settings of care. Goal: Patient will be screened for high-risk medications once per stay Description: Interventions: 1. Pharmacist to perform medication review to screen for high-risk medications 2. Pharmacist to identify high-risk medications in the Plan of Care note 3. Pharmacist to make recommendations for follow-up in the Plan of Care note, if warranted Outcome: Completed Note: Medications individually and in combination may interfere with What Matters, Mentation, and safe Mobility because of the increased risk of confusion, delirium, unsteadiness and falls. Profile review indicates this patients has active orders for lacosamide, lorazepam, and metoclopramide. Chart review also shows changes in renal function. [facility]11-03-2025 Progress note* Discharge Planning Note - KRYSTIN Acuña - 01/05/2025 11:32 AM EST Images from the original note were not included. Initial Assessment Discharge Planning Assessment Amol Calloway Kayla Admit Status: Observation Meet: Unknown Readmission Risk: N/A. Date of Admission: 01/04/2025 GMLOS: <48 hours Target Discharge Date: 01/06/2025 Discharge Planning Assessment completed with Guardian via phone. Service Coordinator Elderly Facility identified self and role toGuardian. Guardian is agreeable to the assessment and discussion of a safe discharge plan. Initial Assessment Flowsheet Row Most Recent Value Patient Information Initial Pre-Hospitalization Assessment Completed? Completed Primary Caregiver Other (Comment) [[facility]] Support System Family Members Discharge Planning Living Arrangements [facility] [[facility]] Assistance Needed Pt is mentally disabled. He is able to speak and answer some questons. However, there is no recall of medical history. He currently resides at [facility] in [place]. Leather Products Supervisor spoke with patient's legal guardian and sister, Susan Smith and she confirms that patient will return to [facility] at discharge. Type of Residence [facility] Community Agencies Currently Utilized None Community Referrals / Resources Provided Denies needs Does The Patient Have Existing Home DME? No Will the patient need DME at discharge? No, the patient has no home DME needs currently Stressors Income Information Income Information Disability IP Hunger/Food Insecurity Screening Within the past 12 months we worried whether our food would run out before we got money to buy more. Never True Within the past 12 months the food we bought just didn't last and we didn't have money to get more.Never True Hunger Screening Complete? Yes Warm Handoff Complete Caregiver/Family Member Caregiver/Support System Limitations Patient/Caregiver Goals Patient/Caregiver Goals Home No Needs Home No Needs [facility] Community Provider Referral Community Provider Referral None Services Requested Patient expects to be discharged to: [facility] Does the patient wish to have family/friend/caregiver involved in their discharge planning? No, thepatient does not wish to have family/friend/caregiver involved in their discharge planning Discharge Disposition [facility] Name [facility] Does the patient need discharge transportation arranged? Yes 3-Midnight Pharmacy: [facility] PCP: Dr. Dior Consulting Providers this admission: general surgery Patient will make his own follow up appointments: no Patient Goals: Goals [facility] (pt-stated) Evaluation of progress towards goal: Patient will return to [facility] PT Recommends: pending evaluation OT Recommends: pending evluation Plan to prevent readmission: follow up with PCP Patient/Family do not endorse any questions at this time. Patient Discharge Plan: Return to [facility]. Please call legal guardian/sister with discharge information: Susan Smith- [phone] Please notify caregivers at [facility] at time of discharge. P: [phone] Dior within 7-10 days. Appointment tasked to transition center. - KRYSTIN Acuña 01/05/25 11:37 AM Follow up appointment scheduled with PCP as follows: Patient [facility] Plan[facility] Please call legal guardian/sister with discharge information: Susan Smith- [phone] Please notify caregivers at [facility] at time of discharge. P: [phone] Dior on 01/13/2025 at 11:30 am. - KRYSTIN Acuña 01/05/25 1:36 PM SongAfter11-03-2025 Procedure note* Ramesh Bolton RN - 01/05/2025 9:42 AM EST Midline placement note: Clinician: Ramesh Bolton RN Prescribed IV therapy: IVF for JOSÉ MIGUEL, keppra, no vesicants on MAY. History / Labs / Allergies were reviewed prior to insertion Any contraindications/considerations prior to placement: Cre 2.59. JOSÉ MIGUEL, no hx CKD. No nephrology consult. Facility unsuccessful PIV / ultrasound attempts at access. Patient here 1 week ago and required midline for the same problem. Approvals required before insertion: N/A Bedside time out performed with nurse ARA Garcia utilizing two identifiers Midline: Product type: 4 fr SL Bard Powermidline inserted into the left brachial vein Ref: [id number] Lot: [id number] Exp: 02/01/2026 Catheter length 10 cm with 0 cm external Number of attempts: 1 CVR: 43% Dressed per protocol with statlock and CHG tegaderm Lidocaine used during procedure: intradermal administration conc 1% approximately 1mL Lot #: [id number] Exp: 01/03/2027 Following successful completion of procedure, all Midline kit components including sharps were accounted for, intact, and disposed of properly. Midline catheter tip is located at the level of the axilla and was placed with a brisk blood return. Line is immediately released for use. Per facility policy midline is okay for 30 days use but is to be removed due to signs of infiltration / phlebitis / extravasation. Line is to be used as a peripheral catheter with caution for any vesicant administration. Per facility policy and product IFU line is okay for lab draws if a blood return is present. Midline is okay to use if no blood return is present as long as there are no signs/symptoms of infiltration / phlebitis / extravasation including but not limited to leaking and/or redness at the insertion site and pain during infusion. [facility]11-03-2025 Procedure note* Ramesh Bolton RN - 01/05/2025 9:42 AM EST Midline placement note: Clinician: Ramesh Bolton RN Prescribed IV therapy: IVF for JOSÉ MIGUEL, keppra, no vesicants on MAY. History / Labs / Allergies were reviewed prior to insertion Any contraindications/considerations prior to placement: Cre 2.59. JOSÉ MIGUEL, no hx CKD. No nephrology consult. Facility unsuccessful PIV / ultrasound attempts at access. Patient here 1 week ago and required midline for the same problem. Approvals required before insertion: N/A Bedside time out performed with nurse ARA Garcia utilizing two identifiers Midline: Product type: 4 fr SL Bard Powermidline inserted into the left brachial vein Ref: [id number]: [id number] Exp: 02/01/2026 Catheter length 10 cm with 0 cm external Number of attempts: 1 CVR: 43% Dressed per protocol with statlock and CHG tegaderm Lidocaine used during procedure: intradermal administration conc 1% approximately 1mL Lot #: [id number] Exp: 01/03/2027 Following successful completion of procedure, all Midline kit components including sharps were accounted for, intact, and disposed of properly. Midline catheter tip is located at the level of the axilla and was placed with a brisk blood return. Line is immediately released for use. Per facility policy midline is okay for 30 days use but is to be removed due to signs of infiltration / phlebitis / extravasation. Line is to be used as a peripheral catheter with caution for any vesicant administration. Per facility policy and product IFU line is okay for lab draws if a blood return is present. Midline is okay to use if no blood return is present as long as there are no signs/symptoms of infiltration / phlebitis / extravasation including but not limited to leaking and/or redness at the insertion site and pain during infusion. [facility]* PT/OT/REGULATORY ADMINISTRATOR - Reva Stanley, PT - 01/05/2025 9:24 AM EST Physical Therapy PT Type of Visit: (P) Medical deferral Reason For Medical Deferral: (P) Medical procedure ongoing Medical Procedure Ongoing: (P) (Sterile procedure at bedside, getting midline. Will re-attempt as able.) PT will continue to follow this patient. [facility]11-03-[facility] Consult note* Irwin Ge, DO - 01/05/2025 9:19 AM ESTAssociated Order(s): IP CONSULT TO GENERAL SURGERY Images from the original note were not included. [facility] [address] [id number] CONSULT NOTE CHIEF COMPLAINT Chief Complaint Patient presents with Medical Screening Amol Taylor is a 69 y.o. male who re-presented to the hospital from his facility with complaints of nausea and vomiting. He was discharged on Sunday after a small-bowel obstruction had been ruled out and he was eating and having normal bowel movements. His stomach looks very large on CT scan. He has had over 1600 cc out by nasogastric tube. He was having normal bowel movements yesterday. He is not the best historian. He lives at a nursing facility And has a MR DD. He denies abdominal pain. He seems more lethargic and responds when woken up but is sleeping. Reason for Exam r/o sbo PACS Images Show images for CT abdomen and pelvis with contrast CT abdomen and pelvis with contrast Order: [id number] Status: Final result Next appt: None Test Result Released: Yes (not seen) 0 Result Notes Details Reading Physician Reading Date Result Priority Subhash Carrizales MD [phone] 01/03/2025 STAT Narrative & Impression HISTORY and Tech Notes: Abdominal pain Small bowel obstruction PROCEDURE: CT abdomen pelvis Study is done with IV contrast Routine protocol Automated exposure control was utilized COMPARISON: December 29 FINDINGS: UPPER ABDOMEN No splenomegaly. Line the detail is somewhat degraded and obscured because of motion and other technical factors including the positioning of the arms There is a chronic appearing crescentic fluid collection and calcification along the lateral aspectof the posterior and mid left kidney with small cyst at the inferior margin of that with some peripheral calcification No peripancreatic fluid collections. No suspicious liver mass. The hepatic veins and portal veins look patent No ductal dilatation No perihepatic fluid The stomach is filled with fluid and looks dilated The duodenum and proximal jejunum do not look particularly dilated There is however some dilatation of the small bowel in the left mid abdomen extending up to the anastomosis sutures near the level of the iliac crest GB unremarkable. No suspicious adrenal mass seen Moderate vascular calcification PELVIS No hydronephrosis . Nondilated bladder Fluid-filled rectum No fecal impaction or perirectal abscess There is some gaseous distention of portions of large and small bowel The mobile cecum is positioned in the right supraumbilical region with fluid- filled distal ileum The appendix is not clearly visible There are small lymph nodes in the mesentery and retroperitoneum. No sign of an abdominal aortic aneurysm. No retroperitoneal bleed or suspicious adenopathy. No suspicious fluid along the paracolic gutters or subhepatic region There is not significant fluid or gas in the mesentery. LUNG BASE EVALUATION Patchy opacities at the left base may be atelectasis or mild pneumonia No effusions. . BONE RECONSTRUCTIONS no compression deformity. No discitis or other lytic destructive process Severe multilevel canal stenosis probably most impressive at L1-L2. IMPRESSION: Nonspecific distended central and peripheral bowel loops including portions of the large and small bowel thought largely to relate to ileus There is slightly greater distention of fluid-filled small bowel in the left mid abdomen extending up to some small bowel anastomosis sutures near the level of the left iliac crest, without suspicious fluid or gas in the mesentery around that anastomosis or along the paracolic gutters There is fluid-filled dilated stomach but without significant dilatation of the duodenum or proximal jejunal segments There is slight elevation of left diaphragm with some patchy opacities in the left base which may be atelectasis or mild pneumonia The presence of considerable fluid in portions of the large and small bowel and rectum, a nonspecific finding that can be related to diarrhea, gastroenteritis or malabsorption syndromes. . . All CT scans at this facility use dose modulation, iterative reconstruction, and/or weight based dosing when appropriate to reduce radiation dose to as low as reasonably achievable. Finalized by Subhash Carrizales MD on 01/03/2025 2:18 PM Exam Ended: 01/03/25 13:58 EDT Last Resulted: 01/03/25 14:18 EDT MEDICATION Current Facility-Administered Medications: acetaminophen (TYLENOL) tablet 650 mg, 650 mg, oral, Q6H PRN, RALPH Zavala albuterol (PROVENTIL,VENTOLIN) nebulizer solution 2.5 mg, 2.5 mg, nebulization, Q6H PRN, RALPH Ivey alum-mag hydroxide-simeth (MAALOX) 200-200-20 mg/5 mL suspension 30 mL, 30 mL, oral, PCHSPGregoria APRN-CNP heparin (porcine) injection 5,000 Units, 5,000 Units, subcutaneous, Q8H [facility] APR[facility]-CNP lacosamide (VIMPAT) 10 mg/mL solution 150 mg, 150 mg, oral, BID, RALPH Ivey levETIRAcetam (KEPPRA) 1,000 mg in sodium chloride 0.9 % 110 mL IVPB, 1,000 mg, intravenous, Q12H [facility] APRN-CNP LORazepam (ATIVAN) injection 2 mg, 2 mg, intravenous, Q4H PRNShruthi APRN-CNP magnesium sulfate IVPB 2000 mg/50 mL in iso-osmotic water (40 mg/mL premix), 2,000 mg, intravenous,PRNGregoria APRN-CNP magnesium sulfate IVPB 4000 mg/100 mL in iso-osmotic water (40 mg/mL premix), 4,000 mg, intravenous, PRNGregoria APRN-CNP metoclopramide (REGLAN) injection 10 mg, 10 mg, intravenous, Q8H, RALPH Lucio, 10 mg at 01/04/25 5144 ondansetron (PF) (ZOFRAN) injection 4 mg, 4 mg, intravenous, Q4H PRN, Gregoria Jiang APRN-OTONIEL pantoprazole (PROTONIX) injection 40 mg, 40 mg, intravenous, Q24H Shruthi DODGE APRN-OTONIEL potassium chloride (K-TAB,KLOR-CON) CR tablet 30-50 mEq, 30-50 mEq, oral, PRN OR potassium chloride (KAYCIEL) 20 mEq/15 mL solution 30-50 mEq, 30-50 mEq, oral, PRN OR potassium chloride IVPB 10 mEq/100 mL in water (0.1 mEq/mL premix), 10 mEq, intravenous, PRN, RALPH Zavala, Last Rate: 100 mL/hr at 01/05/25 0650, 10 mEq at 01/05/25 0650 Consult PICC nurse - Midline, , , Once AND sodium chloride 0.9 % flush 10 mL, 10 mL, intravenous, Q12H AND sodium chloride 0.9 % flush 10 mL, 10 mL, intravenous, PRN AND sodium chloride 0.9 % flush 20 mL, 20 mL, intravenous, PRN, Shruthi Rodriguez APRN-OTONIEL sodium chloride 0.9 % flush 3 mL, 3 mL, intravenous, PRN, Shruthi Valdes APRN-OTONIEL sodium chloride 0.9 % infusion, 100 mL/hr, intravenous, Continuous, 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 ALLERGY Allergies Allergen Reactions Penicillins Hives, Shortness Of Breath, Angioedema, Other (See Comments), Rash and Swelling Sodium Hypochlorite Hives and Itching Bleach (Sodium Hypochlorite) Itching Tree Nuts Clindamycin Rash MEDICAL HISTORY Past Medical History: Diagnosis Date Abdominal hernia large but surgical risk Abnormal result of iron profile testing chronic ds Allergic Allergic rhinitis Balance problem falls with several fx// wears helment for protection Bowel obstruction ([facility]) 2016 and Oct BPH (benign prostatic hyperplasia) sees urology 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 Dysarthria clicking teeth, loud exhales, extra noises Dysphagia work up in progrss to r/o aspiration Eczema Fractures due to falls/ left leg x 2 // uses brace History of difficult intubation [facility] - 2016 Hydrocele of testis 2016 [...] jerking episod weekly Uninodular goiter Urine incontinence SURGICAL HISTORY Past Surgical History: Procedure Laterality Date CLAVICLE SURGERY COLONOSCOPY CYSTOCELE REPAIR 2016 EXCHANGE STIMULATOR BATTERY VAGAL NERVE N/A 03/23/2020 Performed by Nicola Mahan MD at [facility] 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 2004 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 REPAIR 7 months old SMALL INTESTINE SURGERY 1985, 1992, 1993 s/p diverticulitis; bowel obstruction x 2 SOCIAL HISTORY Social History Socioeconomic History Marital status: Single Spouse name: Not on file Number of children: 0 Years of education: Not on file Highest education level: Not on file Occupational History Occupation: [employer] 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 Tobacco Use Smoking status: Never Smokeless tobacco: Never Substance and Sexual Activity Alcohol use: No Drug use: No Sexual activity: Never Other Topics Concern Not on file Social History Narrative Not on file Social Drivers of Health Financial Resource Strain: Patient Unable To Answer (10/14/2024) Overall Financial Resource Strain (CARDIA) Difficulty of Paying Living Expenses: Patient unable to answer Food Insecurity: Patient Unable To Answer (01/04/2025) Hunger Screening Food Insecurity - Worry: Patient unable to answer Food Insecurity - Inability: Patient unable to answer Transportation Needs: No Transportation Needs (12/30/2024) PRAPARE - Transportation Lack of Transportation (Medical): No Lack of Transportation (Non-Medical): No Physical Activity: Patient Unable To Answer (10/14/2024) Exercise Vital Sign Days of Exercise per Week: Patient unable to answer Minutes of Exercise per Session: Patient unable to answer Stress: Patient Unable To Answer (10/14/2024) [place] [employer] - Occupational Stress Questionnaire Feeling of Stress : Patient unable to answer Social Connections: Patient Unable To Answer (10/14/2024) Social Connection and Isolation Panel Frequency of Communication with Friends and Family: Patient unable to answer Frequency of Social Gatherings with Friends and Family: Patient unable to answer Attends Catholic Services: Patient unable to answer Active Member of Clubs or Organizations: Patient unable to answer Attends Club or Organization Meetings: Patient unable to answer Marital Status: Patient unable to answer Interpersonal Safety: Not At Risk (12/30/2024) Humiliation, Afraid, Rape, and Kick questionnaire Fear of Current or Ex-Partner: No Emotionally Abused: No Physically Abused: No Sexually Abused: No Housing Instability: Low Risk (12/30/2024) Housing Instability Housing Instability: No FAMILY HISTORY Family History Problem Relation Age of Onset Thyroid cancer Mother Multiple myeloma Mother Arthritis Mother Heart disease Mother Pancreatitis Mother Lung cancer Father Diabetes Sister Hypertension Sister Diabetes Brother Heart disease Brother COPD Brother REVIEW OF SYSTEMS: Constitutional: Denies fevers, denies recent illnesses. Rest review of systems unobtainable due to lethargy and sleepiness today. PHYSICAL EXAM Constitutional: He is oriented to person, place, and time. Vital signs are normal. He appears well-developed and well-nourished. He is in no acute distress and appears lethargic. HEENT: Head: Normocephalic and atraumatic. Eyes: Conjunctivae, EOM and lids are normal. Neck: Trachea normal. Neck supple. No thyroid mass present. Cardiovascular: Normal rate and regular rhythm. Pulmonary/Chest: Effort normal and breath sounds normal. Abdominal: Soft. Morbidly obese with no palpable masses and bowel sounds are present in all quadrants with healed incisions. Musculoskeletal: Contracture of left hand. Normal range of motion. Neurological: He is alert and oriented to person only but lethargic. Skin: Skin is warm, dry and intact. Psychiatric: Positive history of MR WINTERS IMPRESSION 1. Nausea and vomiting with gastric distention rule out gastritis ulcer disease pyloric stenosis 2. History of MR WINTERS 3. History of ileus ASSESSMENT & PLAN 1. Continue NG tube to low intermittent suction 2. EGD tomorrow with possible biopsy. I discussed the risks, benefits, and alternatives to endoscopy, which may include bleeding or perforation. It is recommended the patient discontinue any blood thinning agents such as aspirin, Plavix, Coumadin or the like one-week prior to the procedure. This will decrease the risk of bleeding if there is a biopsy or polypectomy. They may be at increased risk of a stroke or heart attack if they have cardiac stents or history of stroke. Evaluation included: Preparing to see the patient (e.g., review of tests) Obtaining and/or reviewing separately obtained history Performing a medically appropriate examination and/or evaluation Counseling and educating the patient/family/caregiver Referring and communicating with other health career development director - Irwin Ge DO 01/05/25 9:20 AM This note was created with the assistance of a speech recognition program. While intending to generate a timely document that accurately reflects the content of the visit, no guarantee can be provided that every grammatical or spelling mistake has been or will be identified or corrected. Thank you for your understanding. [facility]11-03-[facility] Consult note* Irwin Ge DO - 01/05/2025 9:19 AM ESTAssociated Order(s): IP CONSULT TO GENERAL SURGERY Images from the original note were not included. [facility] [address] [id number] CONSULT NOTE CHIEF COMPLAINT Chief Complaint Patient presents with Medical Screening Amol Taylor is a 69 y.o. male who re-presented to the hospital from his facility with complaints of nausea and vomiting. He was discharged on Sunday after a small-bowel obstruction had been ruled out and he was eating and having normal bowel movements. His stomach looks very large on CT scan. He has had over 1600 cc out by nasogastric tube. He was having normal bowel movements yesterday. He is not the best historian. He lives at a nursing facility And has a MR DD. He denies abdominal pain. He seems more lethargic and responds when woken up but is sleeping. Reason for Exam r/o sbo PACS Images Show images for CT abdomen and pelvis with contrast CT abdomen and pelvis with contrast Order: [id number] Status: Final result Next appt: None Test Result Released: Yes (not seen) 0 Result Notes Details Reading Physician Reading Date Result Priority Subhash Carrizales MD [phone] 01/03/2025 STAT Narrative & Impression HISTORY and Tech Notes: Abdominal pain Small bowel obstruction PROCEDURE: CT abdomen pelvis Study is done with IV contrast Routine protocol Automated exposure control was utilized COMPARISON: December 29 FINDINGS: UPPER ABDOMEN No splenomegaly. Line the detail is somewhat degraded and obscured because of motion and other technical factors including the positioning of the arms There is a chronic appearing crescentic fluid collection and calcification along the lateral aspectof the posterior and mid left kidney with small cyst at the inferior margin of that with some peripheral calcification No peripancreatic fluid collections. No suspicious liver mass. The hepatic veins and portal veins look patent No ductal dilatation No perihepatic fluid The stomach is filled with fluid and looks dilated The duodenum and proximal jejunum do not look particularly dilated There is however some dilatation of the small bowel in the left mid abdomen extending up to the anastomosis sutures near the level of the iliac crest GB unremarkable. No suspicious adrenal mass seen Moderate vascular calcification PELVIS No hydronephrosis . Nondilated bladder Fluid-filled rectum No fecal impaction or perirectal abscess There is some gaseous distention of portions of large and small bowel The mobile cecum is positioned in the right supraumbilical region with fluid- filled distal ileum The appendix is not clearly visible There are small lymph nodes in the mesentery and retroperitoneum. No sign of an abdominal aortic aneurysm. No retroperitoneal bleed or suspicious adenopathy. No suspicious fluid along the paracolic gutters or subhepatic region There is not significant fluid or gas in the mesentery. LUNG BASE EVALUATION Patchy opacities at the left base may be atelectasis or mild pneumonia No effusions. . BONE RECONSTRUCTIONS no compression deformity. No discitis or other lytic destructive process Severe multilevel canal stenosis probably most impressive at L1-L2. IMPRESSION: Nonspecific distended central and peripheral bowel loops including portions of the large and small bowel thought largely to relate to ileus There is slightly greater distention of fluid-filled small bowel in the left mid abdomen extending up to some small bowel anastomosis sutures near the level of the left iliac crest, without suspicious fluid or gas in the mesentery around that anastomosis or along the paracolic gutters There is fluid-filled dilated stomach but without significant dilatation of the duodenum or proximal jejunal segments There is slight elevation of left diaphragm with some patchy opacities in the left base which may be atelectasis or mild pneumonia The presence of considerable fluid in portions of the large and small bowel and rectum, a nonspecific finding that can be related to diarrhea, gastroenteritis or malabsorption syndromes. . . All CT scans at this facility use dose modulation, iterative reconstruction, and/or weight based dosing when appropriate to reduce radiation dose to as low as reasonably achievable. Finalized by Subhash Carrizales MD on 01/03/2025 2:18 PM Exam Ended: 01/03/25 13:58 EDT Last Resulted: 01/03/25 14:18 EDT MEDICATION Current Facility-Administered Medications: acetaminophen (TYLENOL) tablet 650 mg, 650 mg, oral, Q6H PRN, RALPH Zavala albuterol (PROVENTIL,VENTOLIN) nebulizer solution 2.5 mg, 2.5 mg, nebulization, Q6H PRNShruthi APRN-CNP alum-mag hydroxide-simeth (MAALOX) 200-200-20 mg/5 mL suspension 30 mL, 30 mL, oral, PCHSPGregoria APRN-CNP heparin (porcine) injection 5,000 Units, 5,000 Units, subcutaneous, Q8H DARShruthi APRN-CNP lacosamide (VIMPAT) 10 mg/mL solution 150 mg, 150 mg, oral, BID, RALPH Ivey levETIRAcetam (KEPPRA) 1,000 mg in sodium chloride 0.9 % 110 mL IVPB, 1,000 mg, intravenous, Q12H DARShruthi APRN-CNP LORazepam (ATIVAN) injection 2 mg, 2 mg, intravenous, Q4H PRN, RALPH Ivey magnesium sulfate IVPB 2000 mg/50 mL in iso-osmotic water (40 mg/mL premix), 2,000 mg, intravenous,PRNGregoria APRN-CNP magnesium sulfate IVPB 4000 mg/100 mL in iso-osmotic water (40 mg/mL premix), 4,000 mg, intravenous, PRN, RALPH Zavala metoclopramide (REGLAN) injection 10 mg, 10 mg, intravenous, Q8H, RALPH Lucio, 10 mg at 01/04/25 2347 ondansetron (PF) (ZOFRAN) injection 4 mg, 4 mg, intravenous, Q4H PRN, RAPLH Zavala pantoprazole (PROTONIX) injection 40 mg, 40 mg, intravenous, Q24H DAR, RALPH Ivey potassium chloride (K-TAB,KLOR-CON) CR tablet 30-50 mEq, 30-50 mEq, oral, PRN OR potassium chloride (KAYCIEL) 20 mEq/15 mL solution 30-50 mEq, 30-50 mEq, oral, PRN OR potassium chloride IVPB 10 mEq/100 mL in water (0.1 mEq/mL premix), 10 mEq, intravenous, PRN, RALPH Zavala, Last Rate: 100 mL/hr at 01/05/25 0650, 10 mEq at 01/05/25 0650 Consult PICC nurse - Midline, , , Once AND sodium chloride 0.9 % flush 10 mL, 10 mL, intravenous, Q12H AND sodium chloride 0.9 % flush 10 mL, 10 mL, intravenous, PRN AND sodium chloride 0.9 % flush 20 mL, 20 mL, intravenous, PRN, RALPH Ivey sodium chloride 0.9 % flush 3 mL, 3 mL, intravenous, PRN, RALPH Lucio sodium chloride 0.9 % infusion, 100 mL/hr, intravenous, Continuous, Shruthi Rodriguez APRN-OTONIEL ALLERGY Allergies Allergen Reactions Penicillins Hives, Shortness Of Breath, Angioedema, Other (See Comments), Rash and Swelling Sodium Hypochlorite Hives and Itching Bleach (Sodium Hypochlorite) Itching Tree Nuts Clindamycin Rash MEDICAL HISTORY Past Medical History: Diagnosis Date Abdominal hernia large but surgical risk Abnormal result of iron profile testing chronic ds Allergic Allergic rhinitis Balance problem falls with several fx// wears helment for protection Bowel obstruction ([facility]) 2017 Apr and Oct BPH (benign prostatic hyperplasia) sees urology 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) // has a VNS implant which decreased grand mal seizures/ jerking episod weekly Uninodular goiter Urine incontinence SURGICAL HISTORY Past Surgical History: Procedure Laterality Date CLAVICLE SURGERY COLONOSCOPY CYSTOCELE REPAIR 2015 EXCHANGE STIMULATOR BATTERY VAGAL NERVE N/A 03/23/2020 Performed by Nicola Mahan MD at [facility] 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 2004 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 REPAIR 7 months old SMALL INTESTINE SURGERY 1985, 1992, 1993 s/p diverticulitis; bowel obstruction x 2 SOCIAL HISTORY Social History Socioeconomic History Marital status: Single Spouse name: Not on file Number of children: 0 Years of education: Not on file Highest education level: Not on file Occupational History 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 Tobacco Use Smoking status: Never Smokeless tobacco: Never Substance and Sexual Activity Alcohol use: No Drug use: No Sexual activity: Never Other Topics Concern Not on file Social History Narrative Not on file Social Drivers of Health Financial Resource Strain: Patient Unable To Answer (10/14/2024) Overall Financial Resource Strain (CARDIA) Difficulty of Paying Living Expenses: Patient unable to answer Food Insecurity: Patient Unable To Answer (01/04/2025) Hunger Screening Food Insecurity - Worry: Patient unable to answer Food Insecurity - Inability: Patient unable to answer Transportation Needs: No Transportation Needs (12/30/2024) PRAPARE - Transportation Lack of Transportation (Medical): No Lack of Transportation (Non-Medical): No Physical Activity: Patient Unable To Answer (10/14/2024) Exercise Vital Sign Days of Exercise per Week: Patient unable to answer Minutes of Exercise per Session: Patient unable to answer Stress: Patient Unable To Answer (10/14/2024) [place] [place] [employer] - Occupational Stress Questionnaire Feeling of Stress : Patient unable to answer Social Connections: Patient Unable To Answer (10/14/2024) Social Connection and Isolation Panel Frequency of Communication with Friends and Family: Patient unable to answer Frequency of Social Gatherings with Friends and Family: Patient unable to answer Attends [employer] Services: Patient unable to answer Active Member of Clubs or Organizations: Patient unable to answer Attends Club or Organization Meetings: Patient unable to answer Marital Status: Patient unable to answer Interpersonal Safety: Not At Risk (12/30/2024) Humiliation, Afraid, Rape, and Kick questionnaire Fear of Current or Ex-Partner: No Emotionally Abused: No Physically Abused: No Sexually Abused: No Housing Instability: Low Risk (12/30/2024) Housing Instability Housing Instability: No FAMILY HISTORY Family History Problem Relation Age of Onset Thyroid cancer Mother Multiple myeloma Mother Arthritis Mother Heart disease Mother Pancreatitis Mother Lung cancer Father Diabetes Sister Hypertension Sister Diabetes Brother Heart disease Brother COPD Brother REVIEW OF SYSTEMS: Constitutional: Denies fevers, denies recent illnesses. Rest review of systems unobtainable due to lethargy and sleepiness today. PHYSICAL EXAM Constitutional: He is oriented to person, place, and time. Vital signs are normal. He appears well-developed and well-nourished. He is in no acute distress and appears lethargic. HEENT: Head: Normocephalic and atraumatic. Eyes: Conjunctivae, EOM and lids are normal. Neck: Trachea normal. Neck supple. No thyroid mass present. Cardiovascular: Normal rate and regular rhythm. Pulmonary/Chest: Effort normal and breath sounds normal. Abdominal: Soft. Morbidly obese with no palpable masses and bowel sounds are present in all quadrants with healed incisions. Musculoskeletal: Contracture of left hand. Normal range of motion. Neurological: He is alert and oriented to person only but lethargic. Skin: Skin is warm, dry and intact. Psychiatric: Positive history of MR WINTERS IMPRESSION 1. Nausea and vomiting with gastric distention rule out gastritis ulcer disease pyloric stenosis 2. History of MR WINTERS 3. History of ileus ASSESSMENT & PLAN 1. Continue NG tube to low intermittent suction 2. EGD tomorrow with possible biopsy. I discussed the risks, benefits, and alternatives to endoscopy, which may include bleeding or perforation. It is recommended the patient discontinue any blood thinning agents such as aspirin, Plavix, Coumadin or the like one-week prior to the procedure. This will decrease the risk of bleeding if there is a biopsy or polypectomy. They may be at increased risk of a stroke or heart attack if they have cardiac stents or history of stroke. Evaluation included: Preparing to see the patient (e.g., review of tests) Obtaining and/or reviewing separately obtained history Performing a medically appropriate examination and/or evaluation Counseling and educating the patient/family/caregiver Referring and communicating with other health career development director - Irwin Ge DO 01/05/25 9:20 AM This note was created with the assistance of a speech recognition program. While intending to generate a timely document that accurately reflects the content of the visit, no guarantee can be provided that every grammatical or spelling mistake has been or will be identified or corrected. Thank you for your understanding. documented in this encounterCity HospitalVision [facility] Inc [id number] History and physical note* Rosario Ge MD - 01/05/2025 9:00 AM EST Images from the original note were not included. [facility] INTERNAL MEDICINE [facility] [address] [place] [id number] Hospital Medicine History & Physical Patient: Amol Taylor Date of : 1955 Room: PCP: CARSON DIOR MD Admission date: 01/04/2025 1:05 PM Encounter date: 01/05/25 Hospital Day: 2 SUBJECTIVE Amol Taylor is a 69 y.o. male who presents with vomiting. He was here a couple days ago for SBO and small bowel follow-through was normal and was discharged back as he was eating and passing stool when he was discharge. Heart rate 112 on arrival afebrile blood pressure normal does have a history of MRDD. Patient had 1 episode of vomiting at group home was self-induced and had large volume diarrhea case was discussed with general surgeon Dr. Andre and she thinks there is some possibility of having gastroparesis she reviewed imaging from yesterday and today CT and due to the amount of distention and fluid-filled stomach she recommended NG tube and starting Reglan and fluids. Results in the ER white blood cell count 13.5 absolute neutrophils 11.0 CO2 18 glucose 132 creatinine 2.22 BUN 26 alk-phos 158 GFR 31 lactate normal Imaging in the ER CT abdomen from January 03 Nonspecific distended central and peripheral bowel loops including portions of the large and small bowel thought largely to relate to ileus. There is slightly greater distention of fluid-filled small bowel in the left mid abdomen extending up to some small bowel anastomosis sutures near the level of the left iliac crest, without suspicious fluid or gas in the mesentery around that anastomosis or along the paracolic gutters.There is fluid-filled dilated stomach but without significant dilatation of the duodenum or proximal jejunal segments.There is slight elevation of left diaphragm with some patchy opacities in the left base which may be atelectasis or mild pneumonia.The presence of considerable fluid in portions of the large and small bowel and rectum, a nonspecific finding that can be related to diarrhea, gastroenteritis or malabsorption syndromes. x-ray abdomen from yesterday Nonspecific gaseous bowel prominence. This appears similar to previousCT dated 01/03/2025. Close follow-up recommended. NG placed and repeat abdominal x-ray shows A feeding tube tip is deep in the left lateral body of the stomach. The stomach is air distended Admit for nausea and vomiting with recent small-bowel obstruction Allergies: Penicillins, Sodium hypochlorite, Bleach (sodium hypochlorite), Tree nuts, and Clindamycin Prior to Admission medications Medication Sig Start Date End Date Taking? Authorizing Provider acetaminophen (TYLENOL EXTRA STRENGTH) 500 mg tablet Take 1 tablet (500 mg total) by mouth every 6 (six) hours as needed for pain. Yes Not In System Ref Prov albuterol (PROVENTIL HFA;VENTOLIN HFA) 90 mcg/actuation inhaler Inhale 2 puffs every 4 (four) hoursas needed for wheezing. 02/15/23 Yes Christine Saini, benzonatate (TESSALON PERLES) 100 mg capsule Take 1 capsule (100 mg total) by mouth 3 (three) timesa day as needed for cough. Yes Not In System Ref Prov TAYE-GEST ANTACID 200 mg calcium (500 mg) chewable tablet Chew 1 tablet (200 mg total) and swallow in the morning and 1 tablet (200 mg total) before bedtime. 10/02/24 Yes Not In System Ref Prov diazePAM (DIASTAT ACUDIAL) 5-7.5-10 mg rectal kit Insert 20 mg into the rectum as needed for seizures (seizure > 15 minutes). Yes Not In System Ref Prov finasteride (PROSCAR) 5 mg tablet Take 1 tablet (5 mg total) by mouth daily. 04/03/17 Yes Tyra Ilo, DO hydrOXYzine (ATARAX) 25 mg tablet Take 1 tablet (25 mg total) by mouth every 12 (twelve) hours as needed for itching. Yes Not In System Ref Prov lamoTRIgine (LaMICtal) 200 mg tablet Take 2 tablets (400 mg total) by mouth every morning. 400mg Gladys and 600mg in evening Yes Not In System Ref Prov lamoTRIgine (LaMICtal) 200 mg tablet Take 3 tablets (600 mg total) by mouth nightly. Yes Not In System Ref Prov latanoprost (XALATAN) 0.005 % ophthalmic solution Administer 1 drop to both eyes nightly. Yes Not In System Ref Prov levETIRAcetam (KEPPRA) 1000 mg tablet Take 2 tablets (2,000 mg total) by mouth once daily at bedtime. 10/13/24 Yes RALPH Maldonado levETIRAcetam (KEPPRA) 750 mg tablet Take 2 tablets (1,500 mg total) by mouth in the morning. 10/14/24 Yes RALPH Maldonado LINZESS 145 mcg capsule Take 1 capsule (145 mcg total) by mouth every morning before breakfast. 10/02/24 Yes Not In System Ref Prov LORazepam (ATIVAN) 0.5 mg tablet Take 1 tablet (0.5 mg total) by mouth every 8 (eight) hours as needed for anxiety. Yes Not In System Ref Prov magnesium oxide (MAGOX) 400 mg tablet Take 1 tablet (400 mg total) by mouth in the morning. 24Yes Edilma Eastman MD meclizine (ANTIVERT) 25 mg tablet Take 1 tablet (25 mg total) by mouth daily. 11/12/18 Yes Tyra Robles DO melatonin 3 mg capsule Take 1 capsule by mouth nightly as needed (insomnia). Yes Not In System Ref Prov nystatin (MYCOSTATIN) cream Apply 1 Application topically as needed (Apply topically to affected area twice daily as needed). 11/04/24 Yes Not In System Ref Prov olopatadine (PATADAY) 0.2 % drops Instill 1 drop to eye in the morning. 07/21/24 Yes Not In System Ref Prov ondansetron ODT (ZOFRAN-ODT) 4 mg disintegrating tablet Dissolve 1 tablet (4 mg total) on tongue every 12 (twelve) hours as needed for nausea or vomiting. 04/03/17 Yes Tyra Robles DO pantoprazole (PROTONIX) 40 mg EC tablet Take 1 tablet (40 mg total) by mouth in the morning. Yes Not In System Ref Prov polyethylene glycol (GLYCOLAX) 17 gram packet Take 17 g by mouth 2 (two) times a day as needed (constipation). Yes Not In System Ref Prov primidone (MYSOLINE) 250 mg tablet Take 1 tablet (250 mg total) by mouth in the morning. Yes Not InSystem Ref Prov primidone (MYSOLINE) 250 mg tablet Take 1.5 tablets (375 mg total) by mouth nightly. Yes Not In System Ref Prov Saccharomyces boulardii (FLORASTOR) 250 mg capsule Take 1 capsule (250 mg total) by mouth in the morning. Yes Not In System Ref Prov SENEXON-S 8.6-50 mg Take 2 tablets by mouth in the morning. 09/16/24 Yes Not In System Ref Prov tamsulosin (FLOMAX) 0.4 mg capsule,extended release 24hr Take 1 capsule (0.4 mg total) by mouth 2 (two) times a day. 04/03/17 Yes Tyra Robles DO VIMPAT 150 mg tablet Take 1 tablet (150 mg total) by mouth 2 (two) times a day. 03/07/18 Yes Tyra Robles DO Code Status: Full Code Past Medical History: Patient has a past medical history of Abdominal hernia, Abnormal result of iron profile testing, Allergic, Allergic rhinitis, Balance problem, Bowel obstruction (CMS-HCC), BPH (benign prostatic hyperplasia), Cornea disorder, Dysarthria, Dysphagia, Eczema, Fractures, History of difficult intubation,Hydrocele of testis (2016), Left ankle joint deformity, Left arm weakness, Mental retardation, Obesity, Osteoarthritis, Osteopenia, Pneumonia, Seborrheic dermatitis, Seizures ([facility]), Uninodular goiter, and Urine incontinence. Past Surgical History: Patient has a past surgical history that includes Cystocele repair (2015); Implantation vagal nervestimulator (2004); Clavicle surgery; Colonoscopy; Intussusception repair; Small intestine surgery (1985, 1992, 1993); and Vagus nerve stimulator insertion (N/A, 03/23/2020). Family History: Patient's family history includes Arthritis in his mother; COPD in his brother; Diabetes in his brother and sister; Heart disease in his brother and mother; Hypertension in his sister; Lung cancer inhis father; Multiple myeloma in his mother; Pancreatitis in his mother; Thyroid cancer in his mother. Social History: Patient reports that he has never smoked. He has never used smokeless tobacco. He reports that he does not drink alcohol and does not use drugs. Review of Systems Constitutional: Negative for activity change, appetite change, chills, fatigue, fever and unexpected weight change. HENT: Negative for congestion, dental problem, hearing loss, rhinorrhea, sore throat, trouble swallowing and voice change. Eyes: Negative for visual disturbance. Respiratory: Negative for cough, shortness of breath and wheezing. Cardiovascular: Negative for chest pain, palpitations and leg swelling. Gastrointestinal: Positive for diarrhea, nausea and vomiting. Negative for abdominal pain, blood instool and constipation. Genitourinary: Negative for difficulty urinating, dysuria, enuresis, frequency and hematuria. Musculoskeletal: Negative for arthralgias, joint swelling and myalgias. Skin: Negative for color change, rash and wound. Neurological: Negative for dizziness, seizures, syncope, speech difficulty, weakness, numbness and headaches. Hematological: Negative for adenopathy. Does not bruise/bleed easily. Psychiatric/Behavioral: Negative for dysphoric mood and sleep disturbance. The patient is not nervous/anxious. OBJECTIVE BP 115/62 Pulse 82 Temp 36.4 C (97.5 F) (Oral) Resp 22 Ht 175.3 cm (5' 9 ) Wt 94.6 kg (208 lb 8 oz) SpO2 96% BMI 30.79 kg/m Temp: [36.4 C (97.5 F)-36.6 C (97.9 F)] 36.4 C (97.5 F) Pulse: [82-101] 82 Resp: [14-24] 22 BP: (109-144)/(62-90) 115/62 SpO2: [91 %-96 %] 96 % O2 Device: None (Room air) Intake/Output Summary (Last 24 hours) at 01/05/2025 1603 Last data filed at 01/05/2025 1547 Gross per 24 hour Intake 2034.53 ml Output 1400 ml Net 634.53 ml Physical Exam Constitutional: General: He is not in acute distress. Appearance: Normal appearance. He is well-developed. HENT: Head: Normocephalic and atraumatic. Right Ear: External ear normal. Left Ear: External ear normal. Nose: Nose normal. Mouth/Throat: Lips: [place]. Mouth: Mucous membranes are moist. Pharynx: Oropharynx is clear. Eyes: General: No scleral icterus. Pupils: Pupils are equal, round, and reactive to light. Neck: Vascular: No JVD. Cardiovascular: Rate and Rhythm: Normal rate and regular rhythm. Pulses: Radial pulses are 2+ on the right side and 2+ on the left side. Heart sounds: Normal heart sounds, S1 normal and S2 normal. No murmur heard. No friction rub. No gallop. Pulmonary: Effort: Pulmonary effort is normal. Breath sounds: Normal breath sounds. No decreased breath sounds, wheezing, rhonchi or rales. Abdominal: General: Bowel sounds are normal. Palpations: Abdomen is soft. Tenderness: There is no abdominal tenderness. Musculoskeletal: Right lower leg: No edema. Left lower leg: No edema. Skin: General: Skin is warm and dry. Capillary Refill: Capillary refill takes less than 2 seconds. Findings: No erythema, rash or wound. Neurological: General: No focal deficit present. Mental Status: He is alert and oriented to person, place, and time. Psychiatric: Attention and Perception: Attention normal. Mood and Affect: Mood and affect normal. Behavior: Behavior normal. Behavior is cooperative. Medications Scheduled: heparin (porcine), 5,000 Units, subcutaneous, Q8H DAR lacosamide, 150 mg, oral, BID levETIRAcetam, 1,000 mg, intravenous, Q12H DAR metoclopramide, 5 mg, intravenous, Q6H pantoprazole, 40 mg, intravenous, Q24H DAR Consult PICC nurse - Midline, , , Once AND sodium chloride, 10 mL, intravenous, Q12H AND sodium chloride, 10 mL, intravenous, PRN AND sodium chloride, 20 mL, intravenous, PRN Infusions: sodium chloride 0.9 %, 100 mL/hr, Last Rate: Stopped (01/05/25 1007) As Needed: acetaminophen albuterol alum-mag hydroxide-simeth LORazepam magnesium sulfate magnesium sulfate ondansetron potassium chloride OR potassium chloride OR potassium chloride IV (Adult) Consult PICC nurse - Midline AND sodium chloride AND sodium chloride AND sodium chloride sodium chloride Allergies: Penicillins, Sodium hypochlorite, Bleach (sodium hypochlorite), Tree nuts, and Clindamycin Labs Recent Results (from the past 24 hours) CBC auto differential Collection Time: 01/04/25 5:16 PM Result Value Ref Range WBC 13.5 (H) 4 - 11 x10E9/L RBC Count 4.72 4.1 - 5.7 X10E12/L Hemoglobin 14.9 13 - 17 g/dL Hematocrit 44.9 39 - 50 % MCV 95 80 - 100 fL MCH 31.5 27 - 34 pg MCHC 33.1 32 - 36 g/dL RDW 13.9 11.5 - 15 % Platelet Count 365 150 - 450 X10E9/L MPV 7.5 7 - 12 fL Neutrophils % 81.7 % Lymphocytes % 12.2 % Monocytes % 5.2 % Eosinophils % 0.7 % Basophils % 0.2 % Neutrophils Absolute (A) 11.0 (H) 1.5 - 6.6 10*3/uL Lymphocytes Absolute 1.7 1.0 - 3.5 10*3/uL Monocytes Absolute 0.7 0.0 - 0.9 10*3/uL Eosinophils Absolute 0.1 0.0 - 0.4 10*3/uL Basophils Absolute 0.0 0.0 - 0.2 10*3/uL Differential Type AUTOMATED DIFFERENTIAL Comprehensive metabolic panel Collection Time: 01/04/25 5:16 PM Result Value Ref Range SODIUM 140 134 - 146 mmol/L POTASSIUM 3.6 3.5 - 5.0 mmol/L CHLORIDE 107 98 - 109 mmol/L CARBON DIOXIDE 18 (L) 22 - 32 mmol/L ANION GAP 15 5 - 15 mmol/L BLOOD UREA NITROGEN 26 5 - 27 mg/dL CREATININE 2.22 (H) 0.70 - 1.20 mg/dL GLUCOSE 132 (H) 65 - 99 mg/dL CALCIUM 9.4 8.5 - 10.5 mg/dL TOTAL PROTEIN 8.8 (H) 6.0 - 8.0 g/dL ALBUMIN 4.4 3.2 - 5.3 g/dL ALKALINE PHOSPHATASE 150 (H) 39 - 130 U/L AST 16 <=41 U/L ALT 23 <=40 U/L BILIRUBIN,TOTAL 0.4 0.3 - 1.2 mg/dL EGFR Non-Race Dependent 31 (L) >=60 ml/min/1.73sq.m Lactate w/ Reflex Collection Time: 01/04/25 5:16 PM Result Value Ref Range LACTATE W/REFLEX 1.3 0.4 - 2.0 mmol/L Narrative Result did not trigger repeat Lactate, re-order if needed. GI Panel(stool pathogen panel) Collection Time: 01/05/25 12:10 AM Result Value Ref Range CAMPYLOBACTER Not Detected Not Detected PLESIOMONAS Not Detected Not Detected SALMONELLA Not Detected Not Detected VIBRIO Not Detected Not Detected VIBRIO CHOLERAE Not Detected Not Detected Y. ENTEROCOLITICA Not Detected Not Detected AGGREGATIVE E COLI Not Detected Not Detected PATHOGENIC E COLI Not Detected Not Detected TOXIGENIC E COLI Not Detected Not Detected SHIGA TOXIN E COLI Not Detected Not Detected SHIGELLA-E COLI Not Detected Not Detected CRYPTOSPORIDIUM Not Detected Not Detected CYCLOSPORA Not Detected Not Detected E HISTOLYTICA Not Detected Not Detected GIARDIA LAMBLIA Not Detected Not Detected ADENOVIRUS Not Detected Not Detected ASTROVIRUS Not Detected Not Detected NOROVIRUS Not Detected Not Detected ROTAVIRUS A Not Detected Not Detected SAPOVIRUS Not Detected Not Detected C difficile by PCR Collection Time: 01/05/25 12:10 AM Result Value Ref Range TOXIGENIC C DIFF Negative Negative 027 NAP1 Presumptive Negative Presumptive Negative Comprehensive metabolic panel Collection Time: 01/05/25 5:18 AM Result Value Ref Range SODIUM 143 134 - 146 mmol/L POTASSIUM 3.4 (L) 3.5 - 5.0 mmol/L CHLORIDE 110 (H) 98 - 109 mmol/L CARBON DIOXIDE 18 (L) 22 - 32 mmol/L ANION GAP 15 5 - 15 mmol/L BLOOD UREA NITROGEN 31 (H) 5 - 27 mg/dL CREATININE 2.59 (H) 0.70 - 1.20 mg/dL GLUCOSE 104 (H) 65 - 99 mg/dL CALCIUM 8.7 8.5 - 10.5 mg/dL TOTAL PROTEIN 7.7 6.0 - 8.0 g/dL ALBUMIN 3.8 3.2 - 5.3 g/dL ALKALINE PHOSPHATASE 134 (H) 39 - 130 U/L AST 12 <=41 U/L ALT 18 <=40 U/L BILIRUBIN,TOTAL 0.8 0.3 - 1.2 mg/dL EGFR Non-Race Dependent 26 (L) >=60 ml/min/1.73sq.m Magnesium Collection Time: 01/05/25 5:18 AM Result Value Ref Range MAGNESIUM 1.9 1.8 - 2.6 mg/dL CBC auto differential Collection Time: 01/05/25 5:18 AM Result Value Ref Range WBC 11.7 (H) 4 - 11 x10E9/L RBC Count 4.35 4.1 - 5.7 X10E12/L Hemoglobin 13.8 13 - 17 g/dL Hematocrit 41.7 39 - 50 % MCV 96 80 - 100 fL MCH 31.8 27 - 34 pg MCHC 33.2 32 - 36 g/dL RDW 13.6 11.5 - 15 % Platelet Count 298 150 - 450 X10E9/L MPV 7.8 7 - 12 fL Neutrophils % 67.7 % Lymphocytes % 20.0 % Monocytes % 9.4 % Eosinophils % 2.6 % Basophils % 0.3 % Neutrophils Absolute (A) 7.9 (H) 1.5 - 6.6 10*3/uL Lymphocytes Absolute 2.3 1.0 - 3.5 10*3/uL Monocytes Absolute 1.1 (H) 0.0 - 0.9 10*3/uL Eosinophils Absolute 0.3 0.0 - 0.4 10*3/uL Basophils Absolute 0.0 0.0 - 0.2 10*3/uL Differential Type AUTOMATED DIFFERENTIAL Basic Metabolic Panel Collection Time: 01/05/25 1:28 PM Result Value Ref Range SODIUM 142 134 - 146 mmol/L POTASSIUM 3.9 3.5 - 5.0 mmol/L CHLORIDE 110 (H) 98 - 109 mmol/L CARBON DIOXIDE 21 (L) 22 - 32 mmol/L ANION GAP 11 5 - 15 mmol/L BLOOD UREA NITROGEN 32 (H) 5 - 27 mg/dL CREATININE 2.16 (H) 0.70 - 1.20 mg/dL GLUCOSE 101 (H) 65 - 99 mg/dL CALCIUM 8.2 (L) 8.5 - 10.5 mg/dL EGFR Non-Race Dependent 33 (L) >=60 ml/min/1.73sq.m Radiology X-ray abdomen NG Tube placement 1 view Result Date: 01/04/2025 Narrative: Exam: Abdomen one view. HISTORY: Feeding tube placement. IMPRESSION: 1. A feeding tube tip is deep in the left lateral body of the stomach. The stomach is air distended. Finalized by Mir Palencia MD on 01/04/2025 6:18 PM X-ray abdomen complete series with pa chest Result Date: 01/04/2025 Narrative: Abdomen: HISTORY: Abdominal pain and vomiting. 5 views of the abdomen were obtained. There is nonspecific gaseous bowel prominence which appears to involve both large and small bowel. Stomach appears mildly distended. No free air appreciated. Left lower lobe discoid atelectasis appreciated. IMPRESSION: Nonspecific gaseous bowel prominence. This appears similar to previous CT dated 01/03/2025. Close follow-up recommended. Finalized by Dimas Delgado MD on 01/04/2025 2:[address] abdomen and pelvis with contrast Result Date: 01/03/2025 Narrative: HISTORY and Tech Notes: Abdominal pain Small bowel obstruction PROCEDURE: CT abdomen pelvis Study is done with IV contrast Routine protocol Automated exposure control was utilized COMPARISON: December 29 FINDINGS: UPPER ABDOMEN No splenomegaly. Line the detail is somewhat degraded and obscured because of motion and other technical factors including the positioning of the arms There is achronic appearing crescentic fluid collection and calcification along the lateral aspect of the posterior and mid left kidney with small cyst at the inferior margin of that with some peripheral calcification No peripancreatic fluid collections. No suspicious liver mass. The hepatic veins and portalveins look patent No ductal dilatation No perihepatic fluid The stomach is filled with fluid and looks dilated The duodenum and proximal jejunum do not look particularly dilated There is however somedilatation of the small bowel in the left mid abdomen extending up to the anastomosis sutures near the level of the iliac crest GB unremarkable. No suspicious adrenal mass seen Moderate vascular calcification PELVIS No hydronephrosis . Nondilated bladder Fluid-filled rectum No fecal impaction or perirectal abscess There is some gaseous distention of portions of large and small bowel The mobile cecum is positioned in the right supraumbilical region with fluid-filled distal ileum The appendix is not clearly visible There are small lymph nodes in the mesentery and retroperitoneum. No sign of an abdominal aortic aneurysm. No retroperitoneal bleed or suspicious adenopathy. No suspicious fluid along the paracolic gutters or subhepatic region There is not significant fluid or gas in the mesentery. LUNG BASE EVALUATION Patchy opacities at the left base may be atelectasis or mild pneumonia No eff usions. . BONE RECONSTRUCTIONS no compression deformity. No discitis or other lytic destructive process Severe multilevel canal stenosis probably most impressive at L1-L2. IMPRESSION: Nonspecific distended central and peripheral bowel loops including portions of the large and small bowel thought largely to relate to ileus There is slightly greater distention of fluid-filled small bowel in the left mid abdomen extending up to some small bowel anastomosis sutures near the level of the left iliac crest, without suspicious fluid or gas in the mesentery around that anastomosis or along the paracolic gutters There is fluid- filled dilated stomach but without significant dilatation of the duodenum or proximal jejunal segments There is slight elevation of left diaphragm with some patchy opacities in the left base which may be atelectasis or mild pneumonia The presence of considerable fluid in portions of the large and small bowel and rectum, a nonspecific finding that can be related to diarrhea, gastroenteritis or malabsorption syndromes. . . All CT scans at this facility use dose modulation, iterative reconstruction, and/or weight based dosing when appropriate to reduce radiation dose to as low as reasonably achievable. Finalized by Subhash Carrizales MD on 01/03/2025 2:18 PM Fluoroscopy small bowel Result Date: 12/31/2024 Narrative: History: Vomiting. Bowel obstruction. Exam/Technique: Small bowel follow-through. Comparison: Precontrast images, 4 and 24 hour delayed images are obtained after oral contrast administration. Findings: There is an NG tube in place with decompressed stomach. The initial contract modeler images show abnormal bowel distention measuring up to 5.5 cm most pronounced left mid abdomen. At 4 hour and 24-hour imaging contrast is noted within large bowel indicating incomplete obstruction. IMPRESSION: * Prominent small bowel with contrast reaching the colon at 4 hours indicating at most incomplete obstruction. Finalized by Geoffrey Rain DO on 12/31/2024 9:35 AM X-ray chest 2 views Result Date: 12/30/2024 Narrative: Clinical history: Abnormal CT abd pelvis with bibasilar opacities. Comparisons: 04/10/2023through 10/15/2024. CT abdomen and pelvis 12/29/2024 is also available. Findings: Portable chest radiograph obtained. Heart size and pulmonary vasculature appear within normal limits. Prominent left-sided epicardial fat pad again seen. No definite pleural effusion or pneumothorax. Minimal linear opacities are present in the lung bases, left greater than right likely reflecting areas of subsegmental atelectasis. No focal pulmonary parenchymal consolidation to suggest lobar pneumonia. Vagal stimulator device overlies left lateral chest wall. Nasogastric tube terminates within stomach. Mildly prominent gas-filled bowel loops are present in the upper abdomen. IMPRESSION: 1. Minimal linear opacities in the lung bases are present left greater than right likely reflecting areas of subsegmental atelectasis. No focal pulmonary parenchymal consolidation/pneumonia. Finalized by Luz Marina Louise MD on 12/30/2024 8:10 AM X-ray abdomen ap 1 view Result Date: 12/29/2024 Narrative: EXAM: XR ABDOMEN AP 1 VW CLINICAL INFORMATION: NG tube Placement. COMPARISON: 10/15/2024,12/29/2024 FINDINGS: There is a gastric tube with the tip in the air-filled distended stomach. Dilated small bowel loops are noted, compatible with small bowel obstruction. IMPRESSION: 1. Gastric tube with the tip in the air-filled distended stomach. 2. Dilated small bowel and air-filled distended stomach, compatible with small bowel obstruction. Finalized by Rk Borges MD on12/29/2024 10:[address] abdomen and pelvis with contrast Result Date: 12/29/2024 Narrative: CT ABDOMEN AND PELVIS W CONT CLINICAL HISTORY:oral and iv contrast - vomiting hx or sbo COMPARISON: None. TECHNIQUE: CT abdomen and pelvis was performed utilizing the standard protocol following the uneventful administration of 100 cc Omnipaque 300 nonionic intravenous contrast. Coronal a nd sagittal reformatted images were generated and reviewed. Automated exposure control was utilized. FINDINGS: Dependent bibasilar pulmonary parenchymal opacities. Mild cardiomegaly. Unremarkable liver, gallbladder, spleen, adrenal glands, pancreas, right kidney. Chronic appearing subcapsular collection left kidney with peripheral calcifications. No acute appearing occlusion of the major visceralvasculature. No dilatation or wall thickening of the large bowel. Nonvisualized appendix. Left abdominal enteroenteric anastomosis [capacious juxta anastomotic bowel] dilated proximal small bowel,. 4.4 cm, gradual transition to nondistended mid to distal small bowel, no solitary high-grade transition point. No acute appearing occlusion of the major visceral vasculature. No free fluid or fluid collections. No aggressive osseous lesions. Diffuse idiopathic skeletal hyperostosis, rigid spine. Suspected moderate thecal sac stenosis at L1-2 and L2-3 IMPRESSION: 1. Dilated proximal small bowel with gradual transition to nondistended small bowel in the mid to distal ileum, no solitary high-grade transition point to definitively suggest obstruction. Gastrografin challenge/small bowel follow-through may be helpful, consider as appropriate. All CT scans at this facility use dose modulation, iterative reconstruction, and/or weight based dosing when appropriate to reduce radiation dose to as low as reasonably achievable. Finalized by Edmar Dos Santos MD on 12/29/2024 9:31 PM XR ABDOMEN 3V KUB W/OBLIQUES Result Date: 12/12/2024 Narrative: * * *Final Report* * * DATE OF EXAM: Dec 11 2024 4:03PM CHX [id number] - XR ABDOMEN 3V KUB W/OBLIQUES / PROCEDURE REASON: Diarrhea, unspecified type * * * * Physician Interpretation * * * * EXAMINATION: XR ABDOMEN 3V KUB W/OBLIQUES CLINICAL HISTORY: Diarrhea, unspecified type Technique: XR ABDOMEN 3V KUB W/OBLIQUES -- NOT APPLICABLE with 3 views on 4 images Comparison: Outside institution CT abdomen/pelvis dated 06/20/2023. Abdomen x-rays dated 11/28/2018. RESULT: Nonobstructive bowel gas pattern. No evidence of intraperitoneal free air. No abnormal intra-abdominal calcification is seen projecting over the expected locations of the kidneys, ureters or urinary bladder, however note that the renal shadows are mostly obscured by overlying bowel contents. The imaged lung bases are clear. No acute osseous abnormality. Impression: IMPRESSION: 1. No acute radiographic finding in the abdomen. Terrapin Fisher: PSCB Transcribe Date/Time: Dec 12 2024 3:52P Dictated by : NIKA HINOJOSA MD This examination was interpretedand the report reviewed and electronically signed by: NIKA HINOJOSA MD on Dec 12 2024 3:54PM [facility] PROBLEM LIST Principal Problem: Vomiting, unspecified vomiting type, unspecified whether nausea present Active Problems: Seizures (CMS-HCC) Mental retardation JOSÉ MIGUEL (acute kidney injury) Metabolic acidosis Hypokalemia Nausea and vomiting ASSESSMENT & PLAN JOSÉ MIGUEL and multiple electrolyte abnormalities low potassium, low Co2 secondary to Nausea and vomiting with distention on imaging -general surgery following -NG to LIWS -previous surgical history included intussusception as an infant and recurrent small-bowel obstructions some treated with surgery home notes -was admitted 12/29-01/01 here at [facility] for small-bowel obstruction -continue with Reglan every 8 hours -NPO -Cdiff and GI panel pending -bladder scan every [address] will if > 300ml add u/a -WBC 11.7 (13.5) improving suspect bump up from dehydration -Midline placed -Creatinine improving 2.16 (2.59) -EGD w/ possible biopsy tomorrow 01/06 MRDD History of seizure disorder -continue with IV keppra and IV vimpat -seizure precautions in place as he is normally on -will add valium r/s for abortive med in case seizure with seizure threshold likely being down withacute illness Hypokalemia K 3.9 (3.4) Replace per protocol Sepsis suspected, no-not clinically evident at this time. Chart reviewed. Admission orders placed. Home medications reconciled. VTE chemoprophylaxis: heparin SQ. GI prophylaxis: continue home dose. PT/OT to evaluate and treat. DC planning: Full code. Medically Ready for Discharge: Anticipated in 2-4 Days RALPH Rodrigez 01/05/2025 4:03 PM [facility] 7AM-7PM & 7PM-7AM: EpicChat or page through [employer]. Physician Attestation: I have reviewed the above note authored by the Advance Practice Provider (MEMO) including history, review of systems, physical examination, medical decision making and agree with the assessment & plan. I have personally performed a face to face diagnostic evaluation on this patient. I have reviewed all laboratory findings and imaging reports/films. I have independently evaluated the patient and repeated gee portions of the physical exam. I agree with the MEMO plan as above, unless otherwise noted. ROSARIO GE MD [facility]11-03-2025 History and physical note* Rosario Ge MD - 01/05/2025 9:00 AM EST Images from the original note were not included. RITA YULIA MAHONEY [facility] [address] [place] [id number] Hospital Medicine History & Physical Patient: Amol Taylor Date of : 1955 Room: PCP: CARSON DIOR MD Admission date: 01/04/2025 1:05 PM Encounter date: 01/05/25 Hospital Day: 2 SUBJECTIVE Amol Taylor is a 69 y.o. male who presents with vomiting. He was here a couple days ago for SBO and small bowel follow-through was normal and was discharged back as he was eating and passing stool when he was discharge. Heart rate 112 on arrival afebrile blood pressure normal does have a history of MRDD. Patient had 1 episode of vomiting at group home was self-induced and had large volume diarrhea case was discussed with general surgeon Dr. Andre and she thinks there is some possibility of having gastroparesis she reviewed imaging from yesterday and today CT and due to the amount of distention and fluid-filled stomach she recommended NG tube and starting Reglan and fluids. Results in the ER white blood cell count 13.5 absolute neutrophils 11.0 CO2 18 glucose 132 creatinine 2.22 BUN 26 alk-phos 158 GFR 31 lactate normal Imaging in the ER CT abdomen from January 03 Nonspecific distended central and peripheral bowel loops including portions of the large and small bowel thought largely to relate to ileus. There is slightly greater distention of fluid-filled small bowel in the left mid abdomen extending up to some small bowel anastomosis sutures near the level of the left iliac crest, without suspicious fluid or gas in the mesentery around that anastomosis or along the paracolic gutters.There is fluid-filled dilated stomach but without significant dilatation of the duodenum or proximal jejunal segments.There is slight elevation of left diaphragm with some patchy opacities in the left base which may be atelectasis or mild pneumonia.The presence of considerable fluid in portions of the large and small bowel and rectum, a nonspecific finding that can be related to diarrhea, gastroenteritis or malabsorption syndromes. x-ray abdomen from yesterday Nonspecific gaseous bowel prominence. This appears similar to previousCT dated 01/03/2025. Close follow-up recommended. NG placed and repeat abdominal x-ray shows A feeding tube tip is deep in the left lateral body of the stomach. The stomach is air distended Admit for nausea and vomiting with recent small-bowel obstruction Allergies: Penicillins, Sodium hypochlorite, Bleach (sodium hypochlorite), Tree nuts, and Clindamycin Prior to Admission medications Medication Sig Start Date End Date Taking? Authorizing Provider acetaminophen (TYLENOL EXTRA STRENGTH) 500 mg tablet Take 1 tablet (500 mg total) by mouth every 6 (six) hours as needed for pain. Yes Not In System Ref Prov albuterol (PROVENTIL HFA;VENTOLIN HFA) 90 mcg/actuation inhaler Inhale 2 puffs every 4 (four) hoursas needed for wheezing. 02/15/23 Yes Christine Saini, benzonatate (TESSALON PERLES) 100 mg capsule Take 1 capsule (100 mg total) by mouth 3 (three) timesa day as needed for cough. Yes Not In System Ref Prov TAYE-GEST ANTACID 200 mg calcium (500 mg) chewable tablet Chew 1 tablet (200 mg total) and swallow in the morning and 1 tablet (200 mg total) before bedtime. 10/02/24 Yes Not In System Ref Prov diazePAM (DIASTAT ACUDIAL) 5-7.5-10 mg rectal kit Insert 20 mg into the rectum as needed for seizures (seizure > 15 minutes). Yes Not In System Ref Prov finasteride (PROSCAR) 5 mg tablet Take 1 tablet (5 mg total) by mouth daily. 04/03/17 Yes Tyra Ilo, DO hydrOXYzine (ATARAX) 25 mg tablet Take 1 tablet (25 mg total) by mouth every 12 (twelve) hours as needed for itching. Yes Not In System Ref Prov lamoTRIgine (LaMICtal) 200 mg tablet Take 2 tablets (400 mg total) by mouth every morning. 400mg Gladys and 600mg in evening Yes Not In System Ref Prov lamoTRIgine (LaMICtal) 200 mg tablet Take 3 tablets (600 mg total) by mouth nightly. Yes Not In System Ref Prov latanoprost (XALATAN) 0.005 % ophthalmic solution Administer 1 drop to both eyes nightly. Yes Not In System Ref Prov levETIRAcetam (KEPPRA) 1000 mg tablet Take 2 tablets (2,000 mg total) by mouth once daily at bedtime. 10/13/24 Yes RALPH Maldonado levETIRAcetam (KEPPRA) 750 mg tablet Take 2 tablets (1,500 mg total) by mouth in the morning. 10/14/24 Yes RALPH Maldonado LINZESS 145 mcg capsule Take 1 capsule (145 mcg total) by mouth every morning before breakfast. 10/02/24 Yes Not In System Ref Prov LORazepam (ATIVAN) 0.5 mg tablet Take 1 tablet (0.5 mg total) by mouth every 8 (eight) hours as needed for anxiety. Yes Not In System Ref Prov magnesium oxide (MAGOX) 400 mg tablet Take 1 tablet (400 mg total) by mouth in the morning. 04/19/24Yes Edilma Eastman MD meclizine (ANTIVERT) 25 mg tablet Take 1 tablet (25 mg total) by mouth daily. 11/12/18 Yes Tyra Robles DO melatonin 3 mg capsule Take 1 capsule by mouth nightly as needed (insomnia). Yes Not In System Ref Prov nystatin (MYCOSTATIN) cream Apply 1 Application topically as needed (Apply topically to affected area twice daily as needed). 11/04/24 Yes Not In System Ref Prov olopatadine (PATADAY) 0.2 % drops Instill 1 drop to eye in the morning. 07/21/24 Yes Not In System Ref Prov ondansetron ODT (ZOFRAN-ODT) 4 mg disintegrating tablet Dissolve 1 tablet (4 mg total) on tongue every 12 (twelve) hours as needed for nausea or vomiting. 04/03/17 Yes Tyra Robles DO pantoprazole (PROTONIX) 40 mg EC tablet Take 1 tablet (40 mg total) by mouth in the morning. Yes Not In System Ref Prov polyethylene glycol (GLYCOLAX) 17 gram packet Take 17 g by mouth 2 (two) times a day as needed (constipation). Yes Not In System Ref Prov primidone (MYSOLINE) 250 mg tablet Take 1 tablet (250 mg total) by mouth in the morning. Yes Not InSystem Ref Prov primidone (MYSOLINE) 250 mg tablet Take 1.5 tablets (375 mg total) by mouth nightly. Yes Not In System Ref Prov Saccharomyces boulardii (FLORASTOR) 250 mg capsule Take 1 capsule (250 mg total) by mouth in the morning. Yes Not In System Ref Prov SENEXON-S 8.6-50 mg Take 2 tablets by mouth in the morning. 09/16/24 Yes Not In System Ref Prov tamsulosin (FLOMAX) 0.4 mg capsule,extended release 24hr Take 1 capsule (0.4 mg total) by mouth 2 (two) times a day. 04/03/17 Yes Tyra Robles DO VIMPAT 150 mg tablet Take 1 tablet (150 mg total) by mouth 2 (two) times a day. 03/07/18 Yes Tyra Robles DO Code Status: Full Code Past Medical History: Patient has a past medical history of Abdominal hernia, Abnormal result of iron profile testing, Allergic, Allergic rhinitis, Balance problem, Bowel obstruction (CMS-HCC), BPH (benign prostatic hyperplasia), Cornea disorder, Dysarthria, Dysphagia, Eczema, Fractures, History of difficult intubation,Hydrocele of testis (2016), Left ankle joint deformity, Left arm weakness, Mental retardation, Obesity, Osteoarthritis, Osteopenia, Pneumonia, Seborrheic dermatitis, Seizures ([facility]-HCC), Uninodular goiter, and Urine incontinence. Past Surgical History: Patient has a past surgical history that includes Cystocele repair (2015); Implantation vagal nervestimulator (2004); Clavicle surgery; Colonoscopy; Intussusception repair; Small intestine surgery (1985, 1992, 1993); and Vagus nerve stimulator insertion (N/A, 03/23/2020). Family History: Patient's family history includes Arthritis in his mother; COPD in his brother; Diabetes in his brother and sister; Heart disease in his brother and mother; Hypertension in his sister; Lung cancer inhis father; Multiple myeloma in his mother; Pancreatitis in his mother; Thyroid cancer in his mother. Social History: Patient reports that he has never smoked. He has never used smokeless tobacco. He reports that he does not drink alcohol and does not use drugs. Review of Systems Constitutional: Negative for activity change, appetite change, chills, fatigue, fever and unexpected weight change. HENT: Negative for congestion, dental problem, hearing loss, rhinorrhea, sore throat, trouble swallowing and voice change. Eyes: Negative for visual disturbance. Respiratory: Negative for cough, shortness of breath and wheezing. Cardiovascular: Negative for chest pain, palpitations and leg swelling. Gastrointestinal: Positive for diarrhea, nausea and vomiting. Negative for abdominal pain, blood instool and constipation. Genitourinary: Negative for difficulty urinating, dysuria, enuresis, frequency and hematuria. Musculoskeletal: Negative for arthralgias, joint swelling and myalgias. Skin: Negative for color change, rash and wound. Neurological: Negative for dizziness, seizures, syncope, speech difficulty, weakness, numbness and headaches. Hematological: Negative for adenopathy. Does not bruise/bleed easily. Psychiatric/Behavioral: Negative for dysphoric mood and sleep disturbance. The patient is not nervous/anxious. OBJECTIVE BP 115/62 Pulse 82 Temp 36.4 C (97.5 F) (Oral) Resp 22 Ht 175.3 cm (5' 9 ) Wt 94.6 kg (208 lb 8 oz) SpO2 96% BMI 30.79 kg/m Temp: [36.4 C (97.5 F)-36.6 C (97.9 F)] 36.4 C (97.5 F) Pulse: [82-101] 82 Resp: [14-24] 22 BP: (109-144)/(62-90) 115/62 SpO2: [91 %-96 %] 96 % O2 Device: None (Room air) Intake/Output Summary (Last 24 hours) at 01/05/2025 1603 Last data filed at 01/05/2025 1547 Gross per 24 hour Intake 2034.53 ml Output 1400 ml Net 634.53 ml Physical Exam Constitutional: General: He is not in acute distress. Appearance: Normal appearance. He is well-developed. HENT: Head: Normocephalic and atraumatic. Right Ear: External ear normal. Left Ear: External ear normal. Nose: Nose normal. Mouth/Throat: Lips: [place]. Mouth: Mucous membranes are moist. Pharynx: Oropharynx is clear. Eyes: General: No scleral icterus. Pupils: Pupils are equal, round, and reactive to light. Neck: Vascular: No JVD. Cardiovascular: Rate and Rhythm: Normal rate and regular rhythm. Pulses: Radial pulses are 2+ on the right side and 2+ on the left side. Heart sounds: Normal heart sounds, S1 normal and S2 normal. No murmur heard. No friction rub. No gallop. Pulmonary: Effort: Pulmonary effort is normal. Breath sounds: Normal breath sounds. No decreased breath sounds, wheezing, rhonchi or rales. Abdominal: General: Bowel sounds are normal. Palpations: Abdomen is soft. Tenderness: There is no abdominal tenderness. Musculoskeletal: Right lower leg: No edema. Left lower leg: No edema. Skin: General: Skin is warm and dry. Capillary Refill: Capillary refill takes less than 2 seconds. Findings: No erythema, rash or wound. Neurological: General: No focal deficit present. Mental Status: He is alert and oriented to person, place, and time. Psychiatric: Attention and Perception: Attention normal. Mood and Affect: Mood and affect normal. Behavior: Behavior normal. Behavior is cooperative. Medications Scheduled: heparin (porcine), 5,000 Units, subcutaneous, Q8H DAR lacosamide, 150 mg, oral, BID levETIRAcetam, 1,000 mg, intravenous, Q12H DAR metoclopramide, 5 mg, intravenous, Q6H pantoprazole, 40 mg, intravenous, Q24H DAR Consult PICC nurse - Midline, , , Once AND sodium chloride, 10 mL, intravenous, Q12H AND sodium chloride, 10 mL, intravenous, PRN AND sodium chloride, 20 mL, intravenous, PRN Infusions: sodium chloride 0.9 %, 100 mL/hr, Last Rate: Stopped (01/05/25 1007) As Needed: acetaminophen albuterol alum-mag hydroxide-simeth LORazepam magnesium sulfate magnesium sulfate ondansetron potassium chloride OR potassium chloride OR potassium chloride IV (Adult) Consult PICC nurse - Midline AND sodium chloride AND sodium chloride AND sodium chloride sodium chloride Allergies: Penicillins, Sodium hypochlorite, Bleach (sodium hypochlorite), Tree nuts, and Clindamycin Labs Recent Results (from the past 24 hours) CBC auto differential Collection Time: 01/04/25 5:16 PM Result Value Ref Range WBC 13.5 (H) 4 - 11 x10E9/L RBC Count 4.72 4.1 - 5.7 X10E12/L Hemoglobin 14.9 13 - 17 g/dL Hematocrit 44.9 39 - 50 % MCV 95 80 - 100 fL MCH 31.5 27 - 34 pg MCHC 33.1 32 - 36 g/dL RDW 13.9 11.5 - 15 % Platelet Count 365 150 - 450 X10E9/L MPV 7.5 7 - 12 fL Neutrophils % 81.7 % Lymphocytes % 12.2 % Monocytes % 5.2 % Eosinophils % 0.7 % Basophils % 0.2 % Neutrophils Absolute (A) 11.0 (H) 1.5 - 6.6 10*3/uL Lymphocytes Absolute 1.7 1.0 - 3.5 10*3/uL Monocytes Absolute 0.7 0.0 - 0.9 10*3/uL Eosinophils Absolute 0.1 0.0 - 0.4 10*3/uL Basophils Absolute 0.0 0.0 - 0.2 10*3/uL Differential Type AUTOMATED DIFFERENTIAL Comprehensive metabolic panel Collection Time: 01/04/25 5:16 PM Result Value Ref Range SODIUM 140 134 - 146 mmol/L POTASSIUM 3.6 3.5 - 5.0 mmol/L CHLORIDE 107 98 - 109 mmol/L CARBON DIOXIDE 18 (L) 22 - 32 mmol/L ANION GAP 15 5 - 15 mmol/L BLOOD UREA NITROGEN 26 5 - 27 mg/dL CREATININE 2.22 (H) 0.70 - 1.20 mg/dL GLUCOSE 132 (H) 65 - 99 mg/dL CALCIUM 9.4 8.5 - 10.5 mg/dL TOTAL PROTEIN 8.8 (H) 6.0 - 8.0 g/dL ALBUMIN 4.4 3.2 - 5.3 g/dL ALKALINE PHOSPHATASE 150 (H) 39 - 130 U/L AST 16 <=41 U/L ALT 23 <=40 U/L BILIRUBIN,TOTAL 0.4 0.3 - 1.2 mg/dL EGFR Non-Race Dependent 31 (L) >=60 ml/min/1.73sq.m Lactate w/ Reflex Collection Time: 01/04/25 5:16 PM Result Value Ref Range LACTATE W/REFLEX 1.3 0.4 - 2.0 mmol/L Narrative Result did not trigger repeat Lactate, re-order if needed. GI Panel(stool pathogen panel) Collection Time: 01/05/25 12:10 AM Result Value Ref Range CAMPYLOBACTER Not Detected Not Detected PLESIOMONAS Not Detected Not Detected SALMONELLA Not Detected Not Detected VIBRIO Not Detected Not Detected VIBRIO CHOLERAE Not Detected Not Detected Y. ENTEROCOLITICA Not Detected Not Detected AGGREGATIVE E COLI Not Detected Not Detected PATHOGENIC E COLI Not Detected Not Detected TOXIGENIC E COLI Not Detected Not Detected SHIGA TOXIN E COLI Not Detected Not Detected SHIGELLA-E COLI Not Detected Not Detected CRYPTOSPORIDIUM Not Detected Not Detected CYCLOSPORA Not Detected Not Detected E HISTOLYTICA Not Detected Not Detected GIARDIA LAMBLIA Not Detected Not Detected ADENOVIRUS Not Detected Not Detected ASTROVIRUS Not Detected Not Detected NOROVIRUS Not Detected Not Detected ROTAVIRUS A Not Detected Not Detected SAPOVIRUS Not Detected Not Detected C difficile by PCR Collection Time: 01/05/25 12:10 AM Result Value Ref Range TOXIGENIC C DIFF Negative Negative 027 NAP1 Presumptive Negative Presumptive Negative Comprehensive metabolic panel Collection Time: 01/05/25 5:18 AM Result Value Ref Range SODIUM 143 134 - 146 mmol/L POTASSIUM 3.4 (L) 3.5 - 5.0 mmol/L CHLORIDE 110 (H) 98 - 109 mmol/L CARBON DIOXIDE 18 (L) 22 - 32 mmol/L ANION GAP 15 5 - 15 mmol/L BLOOD UREA NITROGEN 31 (H) 5 - 27 mg/dL CREATININE 2.59 (H) 0.70 - 1.20 mg/dL GLUCOSE 104 (H) 65 - 99 mg/dL CALCIUM 8.7 8.5 - 10.5 mg/dL TOTAL PROTEIN 7.7 6.0 - 8.0 g/dL ALBUMIN 3.8 3.2 - 5.3 g/dL ALKALINE PHOSPHATASE 134 (H) 39 - 130 U/L AST 12 <=41 U/L ALT 18 <=40 U/L BILIRUBIN,TOTAL 0.8 0.3 - 1.2 mg/dL EGFR Non-Race Dependent 26 (L) >=60 ml/min/1.73sq.m Magnesium Collection Time: 01/05/25 5:18 AM Result Value Ref Range MAGNESIUM 1.9 1.8 - 2.6 mg/dL CBC auto differential Collection Time: 01/05/25 5:18 AM Result Value Ref Range WBC 11.7 (H) 4 - 11 x10E9/L RBC Count 4.35 4.1 - 5.7 X10E12/L Hemoglobin 13.8 13 - 17 g/dL Hematocrit 41.7 39 - 50 % MCV 96 80 - 100 fL MCH 31.8 27 - 34 pg MCHC 33.2 32 - 36 g/dL RDW 13.6 11.5 - 15 % Platelet Count 298 150 - 450 X10E9/L MPV 7.8 7 - 12 fL Neutrophils % 67.7 % Lymphocytes % 20.0 % Monocytes % 9.4 % Eosinophils % 2.6 % Basophils % 0.3 % Neutrophils Absolute (A) 7.9 (H) 1.5 - 6.6 10*3/uL Lymphocytes Absolute 2.3 1.0 - 3.5 10*3/uL Monocytes Absolute 1.1 (H) 0.0 - 0.9 10*3/uL Eosinophils Absolute 0.3 0.0 - 0.4 10*3/uL Basophils Absolute 0.0 0.0 - 0.2 10*3/uL Differential Type AUTOMATED DIFFERENTIAL Basic Metabolic Panel Collection Time: 01/05/25 1:28 PM Result Value Ref Range SODIUM 142 134 - 146 mmol/L POTASSIUM 3.9 3.5 - 5.0 mmol/L CHLORIDE 110 (H) 98 - 109 mmol/L CARBON DIOXIDE 21 (L) 22 - 32 mmol/L ANION GAP 11 5 - 15 mmol/L BLOOD UREA NITROGEN 32 (H) 5 - 27 mg/dL CREATININE 2.16 (H) 0.70 - 1.20 mg/dL GLUCOSE 101 (H) 65 - 99 mg/dL CALCIUM 8.2 (L) 8.5 - 10.5 mg/dL EGFR Non-Race Dependent 33 (L) >=60 ml/min/1.73sq.m Radiology X-ray abdomen NG Tube placement 1 view Result Date: 01/04/2025 Narrative: Exam: Abdomen one view. HISTORY: Feeding tube placement. IMPRESSION: 1. A feeding tube tip is deep in the left lateral body of the stomach. The stomach is air distended. Finalized by Mir Palencia MD on 01/04/2025 6:18 PM X-ray abdomen complete series with pa chest Result Date: 01/04/2025 Narrative: Abdomen: HISTORY: Abdominal pain and vomiting. 5 views of the abdomen were obtained. There is nonspecific gaseous bowel prominence which appears to involve both large and small bowel. Stomach appears mildly distended. No free air appreciated. Left lower lobe discoid atelectasis appreciated. IMPRESSION: Nonspecific gaseous bowel prominence. This appears similar to previous CT dated 01/03/2025. Close follow-up recommended. Finalized by Dimas Delgado MD on 01/04/2025 2:[address] abdomen and pelvis with contrast Result Date: 01/03/2025 Narrative: HISTORY and Tech Notes: Abdominal pain Small bowel obstruction PROCEDURE: CT abdomen pelvis Study is done with IV contrast Routine protocol Automated exposure control was utilized COMPARISON: December 29 FINDINGS: UPPER ABDOMEN No splenomegaly. Line the detail is somewhat degraded and obscured because of motion and other technical factors including the positioning of the arms There is achronic appearing crescentic fluid collection and calcification along the lateral aspect of the posterior and mid left kidney with small cyst at the inferior margin of that with some peripheral calcification No peripancreatic fluid collections. No suspicious liver mass. The hepatic veins and portalveins look patent No ductal dilatation No perihepatic fluid The stomach is filled with fluid and looks dilated The duodenum and proximal jejunum do not look particularly dilated There is however somedilatation of the small bowel in the left mid abdomen extending up to the anastomosis sutures near the level of the iliac crest GB unremarkable. No suspicious adrenal mass seen Moderate vascular calcification PELVIS No hydronephrosis . Nondilated bladder Fluid-filled rectum No fecal impaction or perirectal abscess There is some gaseous distention of portions of large and small bowel The mobile cecum is positioned in the right supraumbilical region with fluid-filled distal ileum The appendix is not clearly visible There are small lymph nodes in the mesentery and retroperitoneum. No sign of an abdominal aortic aneurysm. No retroperitoneal bleed or suspicious adenopathy. No suspicious fluid along the paracolic gutters or subhepatic region There is not significant fluid or gas in the mesentery. LUNG BASE EVALUATION Patchy opacities at the left base may be atelectasis or mild pneumonia No eff usions. . BONE RECONSTRUCTIONS no compression deformity. No discitis or other lytic destructive process Severe multilevel canal stenosis probably most impressive at L1-L2. IMPRESSION: Nonspecific distended central and peripheral bowel loops including portions of the large and small bowel thought largely to relate to ileus There is slightly greater distention of fluid-filled small bowel in the left mid abdomen extending up to some small bowel anastomosis sutures near the level of the left iliac crest, without suspicious fluid or gas in the mesentery around that anastomosis or along the paracolic gutters There is fluid- filled dilated stomach but without significant dilatation of the duodenum or proximal jejunal segments There is slight elevation of left diaphragm with some patchy opacities in the left base which may be atelectasis or mild pneumonia The presence of considerable fluid in portions of the large and small bowel and rectum, a nonspecific finding that can be related to diarrhea, gastroenteritis or malabsorption syndromes. . . All CT scans at this facility use dose modulation, iterative reconstruction, and/or weight based dosing when appropriate to reduce radiation dose to as low as reasonably achievable. Finalized by Subhash Carrizales MD on 01/03/2025 2:18 PM Fluoroscopy small bowel Result Date: 12/31/2024 Narrative: History: Vomiting. Bowel obstruction. Exam/Technique: Small bowel follow-through. Comparison: Precontrast images, 4 and 24 hour delayed images are obtained after oral contrast administration. Findings: There is an NG tube in place with decompressed stomach. The initial contract modeler images show abnormal bowel distention measuring up to 5.5 cm most pronounced left mid abdomen. At 4 hour and 24-hour imaging contrast is noted within large bowel indicating incomplete obstruction. IMPRESSION: * Prominent small bowel with contrast reaching the colon at 4 hours indicating at most incomplete obstruction. Finalized by Geoffrey Rain DO on 12/31/2024 9:35 AM X-ray chest 2 views Result Date: 12/30/2024 Narrative: Clinical history: Abnormal CT abd pelvis with bibasilar opacities. Comparisons: 04/10/2023through 10/15/2024. CT abdomen and pelvis 12/29/2024 is also available. Findings: Portable chest radiograph obtained. Heart size and pulmonary vasculature appear within normal limits. Prominent left-sided epicardial fat pad again seen. No definite pleural effusion or pneumothorax. Minimal linear opacities are present in the lung bases, left greater than right likely reflecting areas of subsegmental atelectasis. No focal pulmonary parenchymal consolidation to suggest lobar pneumonia. Vagal stimulator device overlies left lateral chest wall. Nasogastric tube terminates within stomach. Mildly prominent gas-filled bowel loops are present in the upper abdomen. IMPRESSION: 1. Minimal linear opacities in the lung bases are present left greater than right likely reflecting areas of subsegmental atelectasis. No focal pulmonary parenchymal consolidation/pneumonia. Finalized by Luz Marina Louise MD on 12/30/2024 8:10 AM X-ray abdomen ap 1 view Result Date: 12/29/2024 Narrative: EXAM: XR ABDOMEN AP 1 VW CLINICAL INFORMATION: NG tube Placement. COMPARISON: 10/15/2024,12/29/2024 FINDINGS: There is a gastric tube with the tip in the air-filled distended stomach. Dilated small bowel loops are noted, compatible with small bowel obstruction. IMPRESSION: 1. Gastric tube with the tip in the air-filled distended stomach. 2. Dilated small bowel and air-filled distended stomach, compatible with small bowel obstruction. Finalized by Rk Borges MD on12/29/2024 10:[address] abdomen and pelvis with contrast Result Date: 12/29/2024 Narrative: CT ABDOMEN AND PELVIS W CONT CLINICAL HISTORY:oral and iv contrast - vomiting hx or sbo COMPARISON: None. TECHNIQUE: CT abdomen and pelvis was performed utilizing the standard protocol following the uneventful administration of 100 cc Omnipaque 300 nonionic intravenous contrast. Coronal a nd sagittal reformatted images were generated and reviewed. Automated exposure control was utilized. FINDINGS: Dependent bibasilar pulmonary parenchymal opacities. Mild cardiomegaly. Unremarkable liver, gallbladder, spleen, adrenal glands, pancreas, right kidney. Chronic appearing subcapsular collection left kidney with peripheral calcifications. No acute appearing occlusion of the major visceralvasculature. No dilatation or wall thickening of the large bowel. Nonvisualized appendix. Left abdominal enteroenteric anastomosis [capacious juxta anastomotic bowel] dilated proximal small bowel,. 4.4 cm, gradual transition to nondistended mid to distal small bowel, no solitary high-grade transition point. No acute appearing occlusion of the major visceral vasculature. No free fluid or fluid collections. No aggressive osseous lesions. Diffuse idiopathic skeletal hyperostosis, rigid spine. Suspected moderate thecal sac stenosis at L1-2 and L2-3 IMPRESSION: 1. Dilated proximal small bowel with gradual transition to nondistended small bowel in the mid to distal ileum, no solitary high-grade transition point to definitively suggest obstruction. Gastrografin challenge/small bowel follow-through may be helpful, consider as appropriate. All CT scans at this facility use dose modulation, iterative reconstruction, and/or weight based dosing when appropriate to reduce radiation dose to as low as reasonably achievable. Finalized by Edmar Dos Santos MD on 12/29/2024 9:31 PM XR ABDOMEN 3V KUB W/OBLIQUES Result Date: 12/12/2024 Narrative: * * *Final Report* * * DATE OF EXAM: Dec 11 2024 4:03PM CHX [id number] - XR ABDOMEN 3V KUB W/OBLIQUES / PROCEDURE REASON: Diarrhea, unspecified type * * * * Physician Interpretation * * * * EXAMINATION: XR ABDOMEN 3V KUB W/OBLIQUES CLINICAL HISTORY: Diarrhea, unspecified type Technique: XR ABDOMEN 3V KUB W/OBLIQUES -- NOT APPLICABLE with 3 views on 4 images Comparison: Outside institution CT abdomen/pelvis dated 06/20/2023. Abdomen x-rays dated 11/28/2018. RESULT: Nonobstructive bowel gas pattern. No evidence of intraperitoneal free air. No abnormal intra-abdominal calcification is seen projecting over the expected locations of the kidneys, ureters or urinary bladder, however note that the renal shadows are mostly obscured by overlying bowel contents. The imaged lung bases are clear. No acute osseous abnormality. Impression: IMPRESSION: 1. No acute radiographic finding in the abdomen. Terrapin Fisher: PSCB Transcribe Date/Time: Dec 12 2024 3:52P Dictated by : NIKA HINOJOSA MD This examination was interpretedand the report reviewed and electronically signed by: NIKA HINOJOSA MD on Dec 12 2024 3:54PM [facility] H[facility]PITAL PROBLEM LIST Principal Problem: Vomiting, unspecified vomiting type, unspecified whether nausea present Active Problems: Seizures (CMS-HCC) Mental retardation JOSÉ MIGUEL (acute kidney injury) Metabolic acidosis Hypokalemia Nausea and vomiting ASSESSMENT & PLAN JOSÉ MIGUEL and multiple electrolyte abnormalities low potassium, low Co2 secondary to Nausea and vomiting with distention on imaging -general surgery following -NG to [facility]WS -previous surgical history included intussusception as an infant and recurrent small-bowel obstructions some treated with surgery home notes -was admitted 12/29-01/01 here at [facility] for small-bowel obstruction -continue with Reglan every 8 hours -NPO -Cdiff and GI panel pending -bladder scan every [address] if > 300ml add u/a -WBC 11.7 (13.5) improving suspect bump up from dehydration -Midline placed -Creatinine improving 2.16 (2.59) -EGD w/ possible biopsy tomorrow 01/06 MRDD History of seizure disorder -continue with IV keppra and IV vimpat -seizure precautions in place as he is normally on -will add valium r/s for abortive med in case seizure with seizure threshold likely being down withacute illness Hypokalemia K 3.9 (3.4) Replace per protocol Sepsis suspected, no-not clinically evident at this time. Chart reviewed. Admission orders placed. Home medications reconciled. VTE chemoprophylaxis: heparin SQ. GI prophylaxis: continue home dose. PT/OT to evaluate and treat. DC planning: Full code. Medically Ready for Discharge: Anticipated in 2-4 Days RALPH Rodrigez 01/05/2025 4:03 PM [facility] Internal Medicine 7AM-7PM & 7PM-7AM: EpicChat or page through On-Call Finder. Physician Attestation: I have reviewed the above note authored by the Advance Practice Provider (MEMO) including history, review of systems, physical examination, medical decision making and agree with the assessment & plan. I have personally performed a face to face diagnostic evaluation on this patient. I have reviewed all laboratory findings and imaging reports/films. I have independently evaluated the patient and repeated gee portions of the physical exam. I agree with the MEMO plan as above, unless otherwise noted. ROSARIO GE MD [facility] Emergency department Note* Eliezer Truong MD - 01/04/2025 1:46 PM ESTAssociated Order(s): Critical Care Images from the original note were not included. [facility] - EMERGENCY Pt Name: Amol Taylor Birthdate: 1955 Chief Complaint: Chief Complaint Patient presents with Medical Screening History of Present Illness: Patient here for reports of vomiting. He was admitted here a few days ago for small bowel obstruction of which he has a history of. His small bowel follow through was normal, patient was eating and passing stool and discharged. He came back to ER yesterday for reeval. CT was performed that showed some bowel dilation without obvious obstruction, likely illeus and patient was discharged back to [facility] facility. He was sent back in today for reports of vomiting today and attempting to induce vomiting this afternoon. The pateint is MRDD, lives in a nursing facility with recurrent SBO. He currently denies any abdominal pain. States he had a bowel movement this morning. He is not a good historian. Reports of bowel surgery for intussuception as an infant and perhaps additional surgeries forbowel obstruction in the past. 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(jerking motions) // has a VNS implant which decreased grand mal seizures/ jerking episod weekly Uninodular goiter Urine incontinence Past Surgical History: Past Surgical History: Procedure Laterality Date CLAVICLE SURGERY COLONOSCOPY CYSTOCELE REPAIR 2016 EXCHANGE STIMULATOR BATTERY VAGAL NERVE N/A 03/23/2020 Performed by Nicola Mahan MD at [facility] 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 2004 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 REPAIR 7 months old SMALL INTESTINE SURGERY 1985, 1992, 1993 s/p diverticulitis; bowel obstruction x 2 Family History: Family History Problem Relation Age of Onset Thyroid cancer Mother Multiple myeloma Mother Arthritis Mother Heart disease Mother Pancreatitis Mother Lung cancer Father Diabetes Sister Hypertension Sister Diabetes Brother Heart disease Brother COPD Brother Social History: Social History Socioeconomic History Marital status: Single Number of children: 0 Occupational History 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 Tobacco Use Smoking status: Never Smokeless tobacco: Never Substance and Sexual Activity Alcohol use: No Drug use: No Sexual activity: Never Social Drivers of Health Financial Resource Strain: Patient Unable To Answer (10/14/2024) Overall Financial Resource Strain (CARDIA) Difficulty of Paying Living Expenses: Patient unable to answer Food Insecurity: Patient Unable To Answer (01/04/2025) Hunger Screening Food Insecurity - Worry: Patient unable to answer Food Insecurity - Inability: Patient unable to answer Transportation Needs: No Transportation Needs (12/30/2024) PRAPARE - Transportation Lack of Transportation (Medical): No Lack of Transportation (Non-Medical): No Physical Activity: Patient Unable To Answer (10/14/2024) Exercise Vital Sign Days of Exercise per Week: Patient unable to answer Minutes of Exercise per Session: Patient unable to answer Stress: Patient Unable To Answer (10/14/2024) [employer] [place] [employer] - Occupational Stress Questionnaire Feeling of Stress : Patient unable to answer Social Connections: Patient Unable To Answer (10/14/2024) Social Connection and Isolation Panel Frequency of Communication with Friends and Family: Patient unable to answer Frequency of Social Gatherings with Friends and Family: Patient unable to answer Attends Catholic Services: Patient unable to answer Active Member of Clubs or Organizations: Patient unable to answer Attends Club or Organization Meetings: Patient unable to answer Marital Status: Patient unable to answer Interpersonal Safety: Not At Risk (12/30/2024) Humiliation, Afraid, Rape, and Kick questionnaire Fear of Current or Ex-Partner: No Emotionally Abused: No Physically Abused: No Sexually Abused: No Housing Instability: Low Risk (12/30/2024) Housing Instability Housing Instability: No Review of Systems: Review of Systems Physical Exam: ED Triage Vitals [01/04/25 1306] Temp Heart Rate Resp BP SpO2 36.4 C (97.6 F) (!) 112 20 117/87 93 % Temp Source Heart Rate Source Patient Position BP Location FiO2 (%) Oral Pulse Ox Semi-fowlers Right arm -- Vitals: 01/04/25 1839 01/04/25 1900 01/04/25 1945 01/04/252047 BP: 111/73 144/80 137/90 109/77 Temp: 36.6 C (97.9 F) TempSrc: Oral Pulse: 101 100 101 Resp: 18 14 24 SpO2: 93% 94% 92% 92% MAP (mmHg): 88 Height: 175.3 cm (5' 9 ) Weight: 94.6 kg (208 lb 8 oz) 92 Physical Exam Vitals reviewed. HENT: Head: Normocephalic and atraumatic. Eyes: Conjunctiva/sclera: Conjunctivae normal. Cardiovascular: Rate and Rhythm: Normal rate. Pulmonary: Effort: Pulmonary effort is normal. Breath sounds: Normal breath sounds. Abdominal: General: There is no distension. Palpations: Abdomen is soft. Tenderness: There is no abdominal tenderness. There is no guarding. Comments: Well healed surgical scars mid abd Musculoskeletal: General: Normal range of motion. Cervical back: Normal range of motion and neck supple. Skin: General: Skin is warm and dry. Neurological: General: No focal deficit present. Mental Status: He is alert and oriented to person, place, and time. GCS: GCS eye subscore is 4. GCS verbal subscore is 5. GCS motor subscore is 6. Procedure: Critical Care Performed by: Shruthi Valdes APRN-PATTERN PAINTER Authorized by: Eliezer Truong MD Critical care provider statement: Critical care time (minutes): 35 Critical care was necessary to treat or prevent imminent or life-threatening deterioration of the following conditions: Renal failure Critical care was time spent personally by me on the following activities: Discussions with consultants, evaluation of patient's response to treatment, examination of patient, obtaining history from patient or surrogate, ordering and performing treatments and interventions, ordering and review of laboratory studies, ordering and review of radiographic studies, pulse oximetry, re- evaluation of patient's condition and review of old charts I assumed direction of critical care for this patient from another provider in my specialty: yes Care discussed with: admitting provider Re-evaluation: Re-Evaluation Medical Decision Making Patient EC return for continued abdominal pain and vomiting. Has history of recurrent small-bowel obstruction. Seen here yesterday for the same. Patient had 1 episode of vomiting here which nursing staff report was self-induced. Patient also started to have large volume diarrhea. He was seen here yesterday with a CT scan showing distended stomach and dilated loops of bowel without clear obstruction concerning for ileus. I discussed the case with our on-call general surgeon. Dr. Andre thinks the patient could possibly have some underlying gastroparesis. She reviewed today's x-ray and yesterday CT. He has a large distended fluid-filled stomach. She recommended NG tube. I will start Reglan and fluids. She will consult on the patient. I spoke with our hospitalist who agrees to admit the patient. I did repeat laboratories after the plan for admission was clear. He does have a new JOSÉ MIGUEL with creatinine of 2 but normal potassium normal lactate. Soft nontender abdomen. Discussed with our hospitalist who agrees to admit Amount and/or Complexity of Data Reviewed Labs: ordered. Details: Labs notable for: leukocytosis and elevated cr Radiology: ordered and independent interpretation performed. Details: Imaging was independently viewed and is notable for distended bowel loops no specific. However, pending official radiologist read. Discussion of management or test interpretation with external provider(s): 3:12 PM Spoke with Anais in OR for Dr Andre, who relayed the information. She is in OR and unable to conference, will call back when she is out of OR 4:[address] Andre, who reviewed case. At this time, they recommend place NG, admit to obs.Request nursing staff to document the volume, consistency and color of his output. She will consult 4:24 PM Spoke with Gregoria ROSAS for Dr Moscoso, who reviewed case and is agreeable to admit the patient for further care and evaluation. Risk Prescription drug management. Decision regarding hospitalization. ED Course: ED Course as of 01/04/252130 Meaghan Jan 04, 2025 1352 I spoke with staff member Andrei at the patient's group facility. He reports the reason they sent Amol back to the hospitalist because he had some vomiting this morning and was complaining of abdominal pain. They did monitor him for a period of time but then had some more vomiting this afternoon for which they sent him to the hospital [RK] 9547 Our sales secretary took call from patients sister who is requesting patient be admitted. Notes it is difficult for staff at his nursing facility to care for him when he is sick [RK] ED Course User Index [RK] RALPH Lucio Clinical Impressions as of 01/04/252130 Vomiting, unspecified vomiting type, unspecified whether nausea present Ileus ([facility]) JOSÉ MIGUEL (acute kidney injury) . ED Disposition ED Disposition Observation Date/Time [place] Jan 04, 2025 4:24 PM Comment At this time, the patient warrants additional monitoring, evaluation, treatment and/or testing to determine their course of care. The patient will be placed in observation. Medications Prescribed this Visit This print group is not available in inpatient encounters. Please contact a bulk system operator. Shared/Split Visit 18:02 Paula KONG (scribe), scribed for and in the presence of: Dr. Reggie Truong who performed the above service. I, Dr. Reggie Truong personally performed a [id number] diagnostic evaluation on this patient. I personally made and approved the management plan for this patient and take responsibility for the patientmanagement. Additional Notes/Findings: Amol Taylor is a 69 y.o. male presenting to the ED for chief complaint of a medical screening. Patient was recently admitted for small-bowel obstruction, patient has started having worsening nausea and vomiting similar to prior episodes of small-bowel obstruction. Patient is MRDD and unable to provide accurate history. Exam findings as follows: Constitutional: Awake and alert. MRDD, unable to provide history. HENT: Head normocephalic and atraumatic. NG tube in place. Eyes: conjunctiva unremarkable Cardiovascular: Heart rate regular Pulmonary: Easy work of breathing, speaking full sentences Abdominal: Obese, distended, nontender to palpation. Bowel sounds hypoactive. Skin: Warm and dry Musculoskeletal: Moving all extremities spontaneously Neurological: alert and oriented x3 MEMO Supervision Only Supervising Physician was Dr. Rick Rios Please note that portions of this note were completed with a voice recognition program. Efforts were made to edit the dictations but occasionally words are mis-transcribed. RALPH Lucio 01/04/25 1346 RALPH Lucio 01/04/25 1428 RALPH Lucio 01/04/25 1513 RALPH Lucio 01/04/25 1611 RALPH Lucio 01/04/25 1625 Paula Domariahyos 01/04/25 1803 Paula Brannonyos 01/04/25 1805 RALPH Lucio 01/04/25 2131 Eliezer Truong MD 01/04/25 1446 [employer] Work Phone: 1([phone] 577-174711-02-2025 Emergency department Note* Eliezer Truong MD - 01/04/2025 1:46 PM ESTAssociated Order(s): Critical Care Images from the original note were not included. [facility] - EMERGENCY Pt Name: Amol Taylor Birthdate: 1955 Chief Complaint: Chief Complaint Patient presents with Medical Screening History of Present Illness: Patient here for reports of vomiting. He was admitted here a few days ago for small bowel obstruction of which he has a history of. His small bowel follow through was normal, patient was eating and passing stool and discharged. He came back to ER yesterday for reeval. CT was performed that showed some bowel dilation without obvious obstruction, likely illeus and patient was discharged back to thenursing facility. He was sent back in today for reports of vomiting today and attempting to induce vomiting this afternoon. The pateint is MRDD, lives in a nursing facility with recurrent SBO. He currently denies any abdominal pain. States he had a bowel movement this morning. He is not a good historian. Reports of bowel surgery for intussuception as an and perhaps additional surgeries forbowel obstruction in the past. 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) // has a VNS implant which decreased grand mal seizures/ jerking episod weekly Uninodular goiter Urine incontinence Past Surgical History: Past Surgical History: Procedure Laterality Date CLAVICLE SURGERY COLONOSCOPY CYSTOCELE REPAIR 2016 EXCHANGE STIMULATOR BATTERY VAGAL NERVE N/A 03/23/2020 Performed by Nicola Mahan MD at [facility] 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 2004 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 7 months old SMALL INTESTINE SURGERY 1985, 1992, 1993 s/p diverticulitis; bowel obstruction x 2 Family History: Family History Problem Relation Age of Onset Thyroid cancer Mother Multiple myeloma Mother Arthritis Mother Heart disease Mother Pancreatitis Mother Lung cancer Father Diabetes Sister Hypertension Sister Diabetes Brother Heart disease Brother COPD Brother Social History: Social History Socioeconomic History Marital status: Single Number of children: 0 Occupational History 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 Tobacco Use Smoking status: Never Smokeless tobacco: Never Substance and Sexual Activity Alcohol use: No Drug use: No Sexual activity: Never Social Drivers of Health Financial Resource Strain: Patient Unable To Answer (10/14/2024) Overall Financial Resource Strain (CARDIA) Difficulty of Paying Living Expenses: Patient unable to answer Food Insecurity: Patient Unable To Answer (01/04/2025) Hunger Screening Food Insecurity - Worry: Patient unable to answer Food Insecurity - Inability: Patient unable to answer Transportation Needs: No Transportation Needs (12/30/2024) PRAPARE - Transportation Lack of Transportation (Medical): No Lack of Transportation (Non-Medical): No Physical Activity: Patient Unable To Answer (10/14/2024) Exercise Vital Sign Days of Exercise per Week: Patient unable to answer Minutes of Exercise per Session: Patient unable to answer Stress: Patient Unable To Answer (10/14/2024) [employer] [place] [employer] - Occupational Stress Questionnaire Feeling of Stress : Patient unable to answer Social Connections: Patient Unable To Answer (10/14/2024) Social Connection and Isolation Panel Frequency of Communication with Friends and Family: Patient unable to answer Frequency of Social Gatherings with Friends and Family: Patient unable to answer Attends Catholic Services: Patient unable to answer Active Member of Clubs or Organizations: Patient unable to answer Attends Club or Organization Meetings: Patient unable to answer Marital Status: Patient unable to answer Interpersonal Safety: Not At Risk (12/30/2024) Humiliation, Afraid, Rape, and Kick questionnaire Fear of Current or Ex-Partner: No Emotionally Abused: No Physically Abused: No Sexually Abused: No Housing Instability: Low Risk (12/30/2024) Housing Instability Housing Instability: No Review of Systems: Review of Systems Physical Exam: ED Triage Vitals [01/04/25 1306] Temp Heart Rate Resp BP SpO2 36.4 C (97.6 F) (!) 112 20 117/87 93 % Temp Source Heart Rate Source Patient Position BP Location FiO2 (%) Oral Pulse Ox Semi-fowlers Right arm -- Vitals: 01/04/25 1839 01/04/25 1900 01/04/25 1945 01/04/252047 BP: 111/73 144/80 137/90 109/77 Temp: 36.6 C (97.9 F) TempSrc: Oral Pulse: 101 100 101 Resp: 18 14 24 SpO2: 93% 94% 92% 92% MAP (mmHg): 88 Height: 175.3 cm (5' 9 ) Weight: 94.6 kg (208 lb 8 oz) 92 Physical Exam Vitals reviewed. HENT: Head: Normocephalic and atraumatic. Eyes: Conjunctiva/sclera: Conjunctivae normal. Cardiovascular: Rate and Rhythm: Normal rate. Pulmonary: Effort: Pulmonary effort is normal. Breath sounds: Normal breath sounds. Abdominal: General: There is no distension. Palpations: Abdomen is soft. Tenderness: There is no abdominal tenderness. There is no guarding. Comments: Well healed surgical scars mid abd Musculoskeletal: General: Normal range of motion. Cervical back: Normal range of motion and neck supple. Skin: General: Skin is warm and dry. Neurological: General: No focal deficit present. Mental Status: He is alert and oriented to person, place, and time. GCS: GCS eye subscore is 4. GCS verbal subscore is 5. GCS motor subscore is 6. Procedure: Critical Care Performed by: Shruthi Valdes APRN-OTONIEL Authorized by: Eliezer Truong MD Critical care provider statement: Critical care time (minutes): 35 Critical care was necessary to treat or prevent imminent or life-threatening deterioration of the following conditions: Renal failure Critical care was time spent personally by me on the following activities: Discussions with consultants, evaluation of patient's response to treatment, examination of patient, obtaining history from patient or surrogate, ordering and performing treatments and interventions, ordering and review of laboratory studies, ordering and review of radiographic studies, pulse oximetry, re- evaluation of patient's condition and review of old charts I assumed direction of critical care for this patient from another provider in my specialty: yes Care discussed with: admitting provider Re-evaluation: Re-Evaluation Medical Decision Making Patient EC return for continued abdominal pain and vomiting. Has history of recurrent small-bowel obstruction. Seen here yesterday for the same. Patient had 1 episode of vomiting here which nursing staff report was self-induced. Patient also started to have large volume diarrhea. He was seen here yesterday with a CT scan showing distended stomach and dilated loops of bowel without clear obstruction concerning for ileus. I discussed the case with our on-call general surgeon. Dr. Andre thinks the patient could possibly have some underlying gastroparesis. She reviewed today's x-ray and yesterday CT. He has a large distended fluid-filled stomach. She recommended NG tube. I will start Reglan and fluids. She will consult on the patient. I spoke with our hospitalist who agrees to admit the patient. I did repeat laboratories after the plan for admission was clear. He does have a new JOSÉ MIGUEL with creatinine of 2 but normal potassium normal lactate. Soft nontender abdomen. Discussed with our hospitalist who agrees to admit Amount and/or Complexity of Data Reviewed Labs: ordered. Details: Labs notable for: leukocytosis and elevated cr Radiology: ordered and independent interpretation performed. Details: Imaging was independently viewed and is notable for distended bowel loops no specific. However, pending official radiologist read. Discussion of management or test interpretation with external provider(s): 3:12 PM Spoke with Anais in OR for Dr Andre, who relayed the information. She is in OR and unable to conference, will call back when she is out of OR 4:[address] Andre, who reviewed case. At this time, they recommend place NG, admit to obs.Request nursing staff to document the volume, consistency and color of his output. She will consult 4:24 PM Spoke with Gregoria ROSAS for Dr Moscoso, who reviewed case and is agreeable to admit the patient for further care and evaluation. Risk Prescription drug management. Decision regarding hospitalization. ED Course: ED Course as of 01/04/25 2131 Sun Jan 04, 2025 1352 I spoke with staff member Andrei at the patient's group facility. He reports the reason they sent Amol back to the hospitalist because he had some vomiting this morning and was complaining of abdominal pain. They did monitor him for a period of time but then had some more vomiting this afternoon for which they sent him to the hospital [RK] [id number] Our sales secretary took call from patients sister who is requesting patient be admitted. Notes it is difficult for staff at his nursing facility to care for him when he is sick [RK] ED Course User Index [RK] Shruthi Valdes, PROGRAM DIR-PATTERN PAINTER Clinical Impressions as of 01/04/251 Vomiting, unspecified vomiting type, unspecified whether nausea present Ileus ([facility]) JOSÉ MIGUEL (acute kidney injury) . ED Disposition ED Disposition Observation Date/Time Sun Jan 04, 2025 4:24 PM Comment At this time, the patient warrants additional monitoring, evaluation, treatment and/or testing to determine their course of care. The patient will be placed in observation. Medications Prescribed this Visit This print group is not available in inpatient encounters. Please contact a bulk system operator. Shared/Split Visit 18:02 EST Paula Ng (scribe), scribed for and in the presence of: Dr. Reggie Truong who performed the above service. I, Dr. Reggie Truong personally performed a qxrb-kb-msat diagnostic evaluation on this patient. I personally made and approved the management plan for this patient and take responsibility for the patientmanagement. Additional Notes/Findings: Amol Taylor is a 69 y.o. male presenting to the ED for chief complaint of a medical screening. Patient was recently admitted for small-bowel obstruction, patient has started having worsening nausea and vomiting similar to prior episodes of small-bowel obstruction. Patient is MRDD and unable to provide accurate history. Exam findings as follows: Constitutional: Awake and alert. MRDD, unable to provide history. HENT: Head normocephalic and atraumatic. NG tube in place. Eyes: conjunctiva unremarkable Cardiovascular: Heart rate regular Pulmonary: Easy work of breathing, speaking full sentences Abdominal: Obese, distended, nontender to palpation. Bowel sounds hypoactive. Skin: Warm and dry Musculoskeletal: Moving all extremities spontaneously Neurological: alert and oriented x3 MEMO Supervision Only Supervising Physician was Dr. Rick Rios Please note that portions of this note were completed with a voice recognition program. Efforts were made to edit the dictations but occasionally words are mis-transcribed. Shruthi Valdes APRNOTONIEL 01/04/25 1346 Sh[facility]uthi Valdes [facility] 01/04/25 1428 Shruthi Valdes APRNPETER [facility] 01/04/25 1513 Shruthi Valdes APRNPETER [facility] 01/04/25 1611 Shruthi Valdes APRNPET[facility] 01/04/25 1625 Paula Dohanyos 01/04/25 1803 Paula Dohanyos 01/04/25 1805 Shruthi Valdes APRNPETER [facility] 01/04/25 2131 Eliezer Truong MD 01/04/25 2244 * Mirna May RN - 01/04/2025 1:07 PM EST Patient arrives to ER via EMS from [facility]. Per EMS patient was evaluated for small bowel obstruction and was discharged back to their facility. EMS was called back out to facility to transport patient for same. Patient denies pain at this time. Patient denies nausea. [facility] T[facility]* Mirna May RN - 01/04/2025 1:07 PM EST Patient arrives to ER via EMS from [facility]. Per EMS patient was evaluated for small bowel obstruction and was discharged back to their facility. EMS was called back out to facility to transport patient for same. Patient denies pain at this time. Patient denies nausea. [facility] History of Present illness Narrative* RALPH Zavala - 01/04/2025 8:59 AM EST Noted klebsiella on UC-bactrim ordered for 5 days, bmp in 3 days- called and spoke to pt's guardianand updated on plan of care. RALPH Zvaala 01/04/25 0902 [facility] Discharge instructions Patient Education 12/18/2024 10:34:48 Acute Urinary Retention, Male Acute Urinary Retention, Male Acute urinary retention is a condition in which a person is unable to pass urine or can only pass alittle urine. This condition can happen suddenly and last for a short time. If left untreated, it can become long-term (chronic) and result in kidney damage or other serious complications. What are the causes? This condition may be caused by: Obstruction or narrowing of the tube that drains the bladder (urethra). This may be caused by surgery, problems with nearby organs, or injury to the bladder or urethra. Problems with the nerves in the bladder. Tumors in the area of the pelvis, bladder, or urethra. Certain medicines. Bladder or urinary tract infection. Constipation. What increases the risk? This condition is more likely to develop in older men. As men age, their prostate may become largerand may start to press or squeeze on the bladder or the urethra. Other chronic health conditions can increase the risk of acute urinary retention. These include: Diseases such as multiple sclerosis. Spinal cord injuries. Diabetes. Degenerative cognitive conditions, such as delirium or dementia. Psychological conditions. A man may hold his urine due to trauma or because he does not want to usethe bathroom. What are the signs or symptoms? Symptoms of this condition include: Trouble urinating. Pain in the lower abdomen. How is this diagnosed? This condition is diagnosed based on a physical exam and your medical history. You may also have other tests, including: An ultrasound of the bladder or kidneys or both. Blood tests. A urine analysis. Additional tests may be needed, such as a CT scan, MRI, and kidney or bladder function tests. How is this treated? Treatment for this condition may include: Medicines. Placing a thin, sterile tube (catheter) into the bladder to drain urine out of the body. This is called an indwelling urinary catheter. After it is inserted, the catheter is held in place with a small balloon that is filled with sterile water. Urine drains from the catheter into a collection bag outside of the body. Behavioral therapy. Treatment for other conditions. If needed, you may be treated in the hospital for kidney function problems or to manage other complications. Follow these instructions at home: Medicines Take cqfs-dbo-jaeeloa and prescription medicines only as told by your health care provider. Avoid certain medicines, such as decongestants, antihistamines, and some prescription medicines. Do not take any medicine unless your health care provider approves. If you were prescribed an antibiotic medicine, take it as told by your health care provider. Do notstop using the antibiotic even if you start to feel better. General instructions Do not use any products that contain nicotine or tobacco. These products include cigarettes, chewing tobacco, and vaping devices, such as e-cigarettes. If you need help quitting, ask your health careprovider. Drink enough fluid to keep your urine pale yellow. If you have an indwelling urinary catheter, follow the instructions from your health care provider. Monitor any changes in your symptoms. Tell your health care provider about any changes. If instructed, monitor your blood pressure at home. Report changes as told by your health care provider. Keep all follow-up visits. This is important. Contact a health care provider if: You have uncomfortable bladder contractions that you cannot control (spasms). You leak urine with the spasms. Get help right away if: You have chills or a fever. You have blood in your urine. You have a catheter and the following happens: ?Your catheter stops draining urine. ?Your catheter falls out. Summary Acute urinary retention is a condition in which a person is unable to pass urine or can only pass alittle urine. If left untreated, this condition can result in kidney damage or other serious complications. An enlarged prostate may cause this condition. As men age, their prostate gland may become larger and may press or squeeze on the bladder or the urethra. Treatment for this condition may include medicines and placement of an indwelling urinary catheter. Monitor any changes in your symptoms. Tell your health care provider about any changes. This information is not intended to replace advice given to you by your health care provider. Make sure you discuss any questions you have with your health care provider. Document Revised: 11/10/2020 Document Reviewed: 11/10/2020 [employer] Patient Education 2023 [employer]. 12/18/2024 10:34:47 Benign Prostatic Hyperplasia Benign Prostatic Hyperplasia Benign prostatic hyperplasia (BPH) is an enlarged prostate gland that is caused by the normal agingprocess. The prostate may get bigger as a man gets older. The condition is not caused by cancer. The prostate is a walnut-sized gland that is involved in the production of semen. It is located in front of the rectum and below the bladder. The bladder stores urine. The urethra carries stored urine ou t of the body. An enlarged prostate can press on the urethra. This can make it harder to pass urine. The buildup of urine in the bladder can cause infection. Back pressure and infection may progress to bladder damage and kidney (renal) failure. What are the causes? This condition is part of the normal aging process. However, not all men develop problems from thiscondition. If the prostate enlarges away from the urethra, urine flow will not be blocked. If it enlarges toward the urethra and compresses it, there will be problems passing urine. What increases the risk? This condition is more likely to develop in men older than 50 years. What are the signs or symptoms? Symptoms of this condition include: Getting up often during the night to urinate. Needing to urinate frequently during the day. Difficulty starting urine flow. Decrease in size and strength of your urine stream. Leaking (dribbling) after urinating. Inability to pass urine. This needs immediate treatment. Inability to completely empty your bladder. Pain when you pass urine. This is more common if there is also an infection. Urinary tract infection (UTI). How is this diagnosed? This condition is diagnosed based on your medical history, a physical exam, and your symptoms. Tests will also be done, such as: A post-void bladder scan. This measures any amount of urine that may remain in your bladder after you finish urinating. A digital rectal exam. In a rectal exam, your health care provider checks your prostate by putting a lubricated, gloved finger into your rectum to feel the back of your prostate gland. This exam detects the size of your gland and any abnormal lumps or growths. An exam of your urine (urinalysis). A prostate specific antigen (PSA) screening. This is a blood test used to screen for prostate cancer. An ultrasound. This test uses sound waves to electronically produce a picture of your prostate gland. Your health care provider may refer you to a specialist in kidney and prostate diseases (urologist). How is this treated? Once symptoms begin, your health care provider will monitor your condition (active surveillance or watchful waiting). Treatment for this condition will depend on the severity of your condition. Treatment may include: Observation and yearly exams. This may be the only treatment needed if your condition and symptoms are mild. Medicines to relieve your symptoms, including: ?Medicines to shrink the prostate. ?Medicines to relax the muscle of the prostate. Surgery in severe cases. Surgery may include: ?Prostatectomy. In this procedure, the prostate tissue is removed completely through an open incision or with a laparoscope or robotics. ?Transurethral resection of the prostate (TURP). In this procedure, a tool is inserted through the opening at the tip of the penis (urethra). It is used to cut away tissue of the inner core of the prostate. The pieces are removed through the same opening of the penis. This removes the blockage. ?Transurethral incision (TUIP). In this procedure, small cuts are made in the prostate. This lessens the prostate's pressure on the urethra. ?Transurethral microwave thermotherapy (TUMT). This procedure uses microwaves to create heat. The heat destroys and removes a small amount of prostate tissue. ?Transurethral needle ablation (TUNA). This procedure uses radio frequencies to destroy and remove a small amount of prostate tissue. ?Interstitial laser coagulation (ILC). This procedure uses a laser to destroy and remove a small amount of prostate tissue. ?Transurethral electrovaporization (TUVP). This procedure uses electrodes to destroy and remove a small amount of prostate tissue. ?Prostatic urethral lift. This procedure inserts an implant to push the lobes of the prostate away from the urethra. Follow these instructions at home: Take lqej-wir-nhoplom and prescription medicines only as told by your health care provider. Monitor your symptoms for any changes. Contact your health care provider with any changes. Avoid drinking large amounts of liquid before going to bed or out in public. Avoid or reduce how much caffeine or alcohol you drink. Give yourself time when you urinate. Keep all follow-up visits. This is important. Contact a health care provider if: You have unexplained back pain. Your symptoms do not get better with treatment. You develop side effects from the medicine you are taking. Your urine becomes very dark or has a bad smell. Your lower abdomen becomes distended and you have trouble passing urine. Get help right away if: You have a fever or chills. You suddenly cannot urinate. You feel light-headed or very dizzy, or you faint. There are large amounts of blood or clots in your urine. Your urinary problems become hard to manage. You develop moderate to severe low back or flank pain. The flank is the side of your body between the ribs and the hip. These symptoms may be an emergency. Get help right away. Call 911. Do not wait to see if the symptoms will go away. Do not drive yourself to the hospital. Summary Benign prostatic hyperplasia (BPH) is an enlarged prostate that is caused by the normal aging process. It is not caused by cancer. An enlarged prostate can press on the urethra. This can make it hard to pass urine. This condition is more likely to develop in men older than 50 years. Get help right away if you suddenly cannot urinate. This information is not intended to replace advice given to you by your health care provider. Make sure you discuss any questions you have with your health care provider. Document Revised: 09/07/2021 Document Reviewed: 09/07/2021 [employer] Patient Education 2023 [employer]. 12/18/2024 10:34:47 Cancer Screening for Males Cancer Screening for Males A cancer screening is a test or exam that checks for cancer. Work with your health care provider tocreate a cancer screening schedule that protects your health. Who should have screening? All people who are male should be considered for screening of certain cancers, including colorectalcancer, prostate cancer, lung cancer, and skin cancer. Your health care provider may recommend screenings for other types of cancer if: You have had cancer before. You have a family member with cancer. You have genes that could increase the risk of cancer. You have risk factors for certain cancers, such as current or past use of tobacco products or beingoverweight. What are the benefits of screening? Cancer screening is done to look for cancer in the very early stages, before it spreads and becomesharder to treat and before you would start to notice symptoms. Finding cancer early improves the chances of successful treatment. It may save your life. When should I be screened for cancer? When you should be screened for cancer depends on: Your age. Your medical history and your family's medical history. Certain lifestyle factors, such as smoking or other use of tobacco products. Environmental exposure, such as to asbestos. How is screening done? Colorectal cancer Colorectal cancer screening looks for cancer or for growths called polyps that often form before cancer starts. Tests to look for cancer or polyps include: Colonoscopy or flexible sigmoidoscopy. For these procedures, a flexible tube with a small camera isinserted into the rectum. CT colonography. This test uses X-rays and a contrast dye to check the colon for polyps. Tests to look for cancer in the stool (feces) include: Guaiac-based fecal occult blood test (FOBT). This test can find blood in stool. It can be done at home with a kit. Fecal immunochemical test (FIT). This test can find blood in stool. For this test, you will need tocollect stool samples at home. Stool DNA test. This test looks for blood in stool and any changes in DNA that can lead to colon cancer. For this test, you will need to collect a stool sample at home and send it to a lab. All adults should have screenings starting at 45 years old and continuing through 75 years old. Formales 76 85 years old, the decision to be screened should be based on a person's preferences, life expectancy, overall health, and prior screening history. Your health care provider may recommend screening before 45 years old. You will have tests every 1 10 years, depending on your results and the type of screening test. People at increased risk should start screening at an earlier age. Talk withyour health care provider about which screening test is right for you and how often you should be screened. Prostate cancer Prostate cancer screening is done with blood tests and a digital rectal exam. During this exam, a health care provider uses a gloved finger to check prostate size. You may need to be screened for prostate cancer if: You have risk factors for prostate cancer, such as being an person or having a close family member with prostate cancer. You have had gene changes or a genetic condition that was passed on to you from a parent (inherited). These gene changes or genetic conditions include BRCA1 or BRCA2 gene mutations or Lewis syndrome. You have symptoms of prostate cancer, such as problems urinating or problems getting or keeping an erection (erectile dysfunction). When you have been screened for prostate cancer, future screening may be recommended based on the results of your blood tests. Prostate cancer screening for males with average risk may start at 50 years old. Males with risk factors may need to be screened earlier, at 40 45 years old. Talk with your health care provider aboutwhether screening is right for you and, if so, how often you should be screened. Lung cancer Lung cancer screening is done with a CT scan that looks for abnormal changes in the lungs. Discuss lung cancer screening with your health care provider if you are 50 80 years old and if any of the following apply to you: You currently smoke. You used to smoke heavily. You have a smoking history of 1 pack of cigarettes a day for 20 years or 2 packs a day for 10 years. You may need to be screened every year if you smoke heavily or if you used to smoke. Skin cancer Skin cancer screening is done by checking the skin for unusual moles or spots and any changes in existing moles. Your health care provider should check your skin for signs of skin cancer at every physical exam. You should check your skin every month and tell your health care provider right away if anything looks unusual. Males with a ajzyeu-xyvz-fpttmf risk for skin cancer may want to see a colorer hides and skins (logger driving horses) for an annual body check. Where to find more information [place] [employer]: cancer.org Centers for Disease Control and Prevention: cdc.gov National Cancer [place]: cancer.gov Contact a health care provider if: You have concerns about any signs or symptoms of cancer. These may include: ?Skin problems. You may have: ?Moles of an unusual shape or color. ?Changes in existing moles. ?A sore on your skin that does not heal. ?Tiredness (fatigue) that does not go away. ?Losing weight without trying. ?Blood in your urine or stool. ?Problems with urination. You may have: ?Changes in urination habits. ?Painful urination. ?Painful ejaculation. ?Problems with coughing or breathing. These may include: ?Coughing or trouble breathing that does not go away. ?Coughing up blood. ?Frequent pain or cramping in your abdomen. This information is not intended to replace advice given to you by your health care provider. Make sure you discuss any questions you have with your health care provider. Document Revised: 02/27/2023 Document Reviewed: 09/11/2022 [employer] Patient Education 2023 [employer] Decisions. Follow Up Care 11/06/2024 08:46:17 With:REESE Patrick APRN, RAINER [facility], URL Address: When: Unknown Comments:July 2025 w/ PSA [facility] Lizette 10-16-2025 NotePatient Education Oncology Cancer Screening for Males A cancer screening is a test or exam that checks for cancer. Work with your health care provider tocreate a cancer screening schedule that protects your health. Who should have screening? All people who are male should be considered for screening of certain cancers, including colorectalcancer, prostate cancer, lung cancer, and skin cancer. Your health care provider may recommend screenings for other types of cancer if: ??? You have had cancer before. ??? You have a family member with cancer. ??? You have genes that could increase the risk of cancer. ??? You have risk factors for certain cancers, such as current or past use of tobacco products or being overweight. What are the benefits of screening? Cancer screening is done to look for cancer in the very early stages, before it spreads and becomesharder to treat and before you would start to notice symptoms. Finding cancer early improves the chances of successful treatment. It may save your life. When should I be screened for cancer? When you should be screened for cancer depends on: ??? Your age. ??? Your medical history and your family's medical history. ??? Certain lifestyle factors, such as smoking or other use of tobacco products. ??? Environmental exposure, such as to asbestos. How is screening done? Colorectal cancer Colorectal cancer screening looks for cancer or for growths called polyps that often form before cancer starts. Tests to look for cancer or polyps include: ??? Colonoscopy or flexible sigmoidoscopy. For these procedures, a flexible tube with a small camera is inserted into the rectum. ??? CT colonography. This test uses X-rays and a contrast dye to check the colon for polyps. Tests to look for cancer in the stool (feces) include: ??? Guaiac-based fecal occult blood test (FOBT). This test can find blood in stool. It can be done at home with a kit. ??? Fecal immunochemical test (FIT). This test can find blood in stool. For this test, you will need to collect stool samples at home. ??? Stool DNA test. This test looks for blood in stool and any changes in DNA that can lead to colon cancer. For this test, you will need to collect a stool sample at home and send it to a lab. All adults should have screenings starting at 45 years old and continuing through 75 years old. Formales 76?85 years old, the decision to be screened should be based on a person's preferences, life expectancy, overall health, and prior screening history. Your health care provider may recommend screening before 45 years old. You will have tests every 1?10 years, depending on your results and the type of screening test. People at increased risk should start screening at an earlier age. Talk withyour health care provider about which screening test is right for you and how often you should be screened. Prostate cancer Prostate cancer screening is done with blood tests and a digital rectal exam. During this exam, a health care provider uses a gloved finger to check prostate size. You may need to be screened for prostate cancer if: ??? You have risk factors for prostate cancer, such as being an person or having aclose family member with prostate cancer. ??? You have had gene changes or a genetic condition that was passed on to you from a parent (inherited). These gene changes or genetic conditions include BRCA1 or BRCA2 gene mutations or Lewis syndrome. ??? You have symptoms of prostate cancer, such as problems urinating or problems getting or keepingan erection (erectile dysfunction). When you have been screened for prostate cancer, future screening may be recommended based on the results of your blood tests. Prostate cancer screening for males with average risk may start at 50 years old. Males with risk factors may need to be screened earlier, at 40?45 years old. Talk with your health care provider aboutwhether screening is right for you and, if so, how often you should be screened. Lung cancer Lung cancer screening is done with a CT scan that looks for abnormal changes in the lungs. Discuss lung cancer screening with your health care provider if you are 50?80 years old and if any of the following apply to you: ??? You currently smoke. ??? You used to smoke heavily. ??? You have a smoking history of 1 pack of cigarettes a day for 20 years or 2 packs a day for 10 years. You may need to be screened every year if you smoke heavily or if you used to smoke. Skin cancer Skin cancer screening is done by checking the skin for unusual moles or spots and any changes in existing moles. Your health care provider should check your skin for signs of skin cancer at every physical exam. You should check your skin every month and tell your health care provider right away if anything looks unusual. Males with a kdwrsd-vbei-bygjcn risk for skin cancer may want to see a colorer hides and skins (dermatologi (more content not included)...[facility]10-09-2025 NoteHNO ID: [id number] Author: UMA CLARK MD Service: ? Author Type: Physician Type: Progress Notes Filed: 12/13/2024 07:25 Note Text: FOLLOW UP OFFICE VISIT REASON FOR VISIT: Follow up HPI: Amol Taylor is a 69 year old male who presents for follow up with manager care management from group home with unfortunately multiple episodes of partial SBOs requiring multiple admissions to the hospital with fortunately none since October 2024 although patient has been having loose stools since end of October 2024 with no constipation, rectal bleeding. The loose stools are at times occurring nocturnally as well with no abdominal pain per patient and hydroelectric station operator. Patient had been on antibiotics for a urethra infection per hydroelectric station operator over the past several months. Past Clinical Work-up: Last office visit 05/22/2024: IMPRESSION/DISCUSSION/PLAN: Recurrent partial SBO's with last one 04/19/24 at [facility] in [place] with recommendation being that of implementing miralax 17 grams at the time that he develops constipation as this seems to be the precipitating factor to the onset of the recurrent partial SBO. Continue bowel regimen with senna and linzess. Follow up 6 months. SBFT 04/21/2024: No evidence of small-bowel obstruction. CTAP 04/19/2024: 1. Diffuse small bowel dilation. There is no true transition point. 2. Abrupt transition in the transverse colon. A mass is not appreciated. 3. Appearance of the left kidney is unchanged. Acute Abd Series 06/13/23: 1. No acute cardiopulmonary process. 2. Scattered gas-filled large/small bowel loops throughout the abdomen and pelvis with several mildly distended gas-filled small bowel loops up to 4 cm. Findings may represent ileus versus partial/intermittent SBO. MBS 04/16/2023: IMPRESSION: 1. Abnormal swallow study as noted above with significant stasis in the hypopharynx at the level of the large osteophyte at C5/6 vertebrae. 2. Please correlate with dedicated speech pathology report for additional details and recommendations. Labs 04/30/2024: Vitamin B-12 232 - 1245 pg/mL 949 WBC 3.5 - 11.3 k/uL 7.5 RBC 4.21 - 5.77 m/uL 3.62 Low Hemoglobin 13.0 - 17.0 g/dL 11.6 Low Hematocrit 40.7 - 50.3 % 35.6 Low MCV 82.6 - 102.9 fL 98.3 MCH 25.2 - 33.5 pg 32 MCHC 28.4 - 34.8 g/dL 32.6 RDW 11.8 - 14.4 % 12.2 Platelets 138 - 453 k/uL 252 MPV 8.1 - 13.5 fL 10.3 NRBC Automated 0.0 per 100 WBC 0 Neutrophils % 36 - 65 % 59 Lymphocytes % 24 - 43 % 23 Low Monocytes % 3 - 12 % 10 Eosinophils % 1 - 4 % 7 High Basophils % 0 - 2 % 1 Immature Granulocytes % 0 % 0 Neutrophils Absolute 1.50 - 8.10 k/uL 4.42 Lymphocytes Absolute 1.10 - 3.70 k/uL 1.7 Monocytes Absolute 0.10 - 1.20 k/uL 0.76 Eosinophils Absolute 0.00 - 0.44 k/uL 0.5 High Basophils Absolute 0.00 - 0.20 k/uL 0.04 Immature Granulocytes Absolute 0.00 - 0.30 k/uL 0.03 Sodium 136 - 145 mmol/L 138 Potassium 3.7 - 5.3 mmol/L 4.3 Chloride 98 - 107 mmol/L 107 CO2 20 - 31 mmol/L 21 Anion Gap 9 - 16 mmol/L 10 Glucose 74 - 99 mg/dL 86 BUN 8 - 23 mg/dL 12 CREATEXT 0.70 - 1.20 mg/dL 0.9 Est, Glom Filt Rate >60 mL/min/1.73m2 >90 BUN/Creatinine Ratio 9 - 20 13 Calcium 8.6 - 10.4 mg/dL 8.9 Total Protein 6.6 - 8.7 g/dL 7.2 Albumin 3.5 - 5.2 g/dL 3.8 Albumin/Globulin Ratio 1.0 - 2.5 1.1 Total Bilirubin 0.00 - 1.20 mg/dL <0.2 Alkaline Phosphatase 40 - 129 U/L 156 High ALT 10 - 50 U/L 16 AST 10 - 50 U/L 13 ALLERGIES Allergen Reactions Bleach [Other] Clindamycin Rash Penicillins Swelling PAST MEDICAL HISTORY Diagnosis Date Closed fracture of shaft of fibula 11/24/2014 Mental retardation Nontoxic uninodular goiter stable Seizure disorder (HCC) follows with neuro Kelton Hagen PAST SURGICAL HISTORY Procedure Laterality Date INSERT PICC 05/11/2014 LAP SM BOWEL RESECTION W/ANASTOMOSIS, SNGL 10/2013 fascia closed, skin open for SBO MIDLINE INSERTION/CONSULT 05/04/2014 MIDLINE INSERTION/CONSULT 08/08/2016 PAST SURGICAL HISTORY OF 7 months old abd surgery PAST SURGICAL HISTORY OF fracture clavicle PAST SURGICAL HISTORY OF VAGAL NERVE STIMULATOR for seizure Px PAST SURGICAL HISTORY OF 05/05/14 Exploratory laparotomy, small bowel resection and anastomosis , extensive lysis of adhesions FAMILY HISTORY Problem Relation Age of Onset Ischemic Heart Disease Mother other (Thyroid Ca) Mother other (Multiple Myeloma) Mother other (DM) Mother other (htn) Mother other (Lung Ca) Father smoker other (A fib) Brother other (Heart attack) Brother other (HTN) Sister other (DM) Sister other (leukemia) Maternal Uncle other (pancreatic Ca) Maternal Aunt Ischemic Heart Disease Maternal Grandfather Alzheimer's Disease Maternal Grandmother other (HTN) Maternal Grandmother other (dm) Paternal Grandmother SOCIAL HISTORY[1] Current Outpatient Medications Medication (more content not included)...[facility]09-05-2025 NotePatient Education Urology Benign Prostatic Hyperplasia Benign prostatic hyperplasia (BPH) is an enlarged prostate gland that is caused by the normal agingprocess. The prostate may get bigger as a man gets older. The condition is not caused by cancer. The prostate is a walnut-sized gland that is involved in the production of semen. It is located in front of the rectum and below the bladder. The bladder stores urine. The urethra carries stored urine ou t of the body. An enlarged prostate can press on the urethra. This can make it harder to pass urine. The buildup of urine in the bladder can cause infection. Back pressure and infection may progress to bladder damage and kidney (renal) failure. What are the causes? This condition is part of the normal aging process. However, not all men develop problems from thiscondition. If the prostate enlarges away from the urethra, urine flow will not be blocked. If it enlarges toward the urethra and compresses it, there will be problems passing urine. What increases the risk? This condition is more likely to develop in men older than 50 years. What are the signs or symptoms? Symptoms of this condition include: ??? Getting up often during the night to urinate. ??? Needing to urinate frequently during the day. ??? Difficulty starting urine flow. ??? Decrease in size and strength of your urine stream. ??? Leaking (dribbling) after urinating. ??? Inability to pass urine. This needs immediate treatment. ??? Inability to completely empty your bladder. ??? Pain when you pass urine. This is more common if there is also an infection. ??? Urinary tract infection (UTI). How is this diagnosed? This condition is diagnosed based on your medical history, a physical exam, and your symptoms. Tests will also be done, such as: ??? A post-void bladder scan. This measures any amount of urine that may remain in your bladder after you finish urinating. ??? A digital rectal exam. In a rectal exam, your health care provider checks your prostate by putting a lubricated, gloved finger into your rectum to feel the back of your prostate gland. This exam detects the size of your gland and any abnormal lumps or growths. ??? An exam of your urine (urinalysis). ??? A prostate specific antigen (PSA) screening. This is a blood test used to screen for prostate cancer. ??? An ultrasound. This test uses sound waves to electronically produce a picture of your prostate gland. Your health care provider may refer you to a specialist in kidney and prostate diseases (urologist). How is this treated? Once symptoms begin, your health care provider will monitor your condition (active surveillance or watchful waiting). Treatment for this condition will depend on the severity of your condition. Treatment may include: ??? Observation and yearly exams. This may be the only treatment needed if your condition and symptoms are mild. ??? Medicines to relieve your symptoms, including: ? Medicines to shrink the prostate. ? Medicines to relax the muscle of the prostate. ??? Surgery in severe cases. Surgery may include: ? Prostatectomy. In this procedure, the prostate tissue is removed completely through an open incision or with a laparoscope or robotics. ? Transurethral resection of the prostate (TURP). In this procedure, a tool is inserted through theopening at the tip of the penis (urethra). It is used to cut away tissue of the inner core of the prostate. The pieces are removed through the same opening of the penis. This removes the blockage. ? Transurethral incision (TUIP). In this procedure, small cuts are made in the prostate. This lessens the prostate's pressure on the urethra. ? Transurethral microwave thermotherapy (TUMT). This procedure uses microwaves to create heat. The heat destroys and removes a small amount of prostate tissue. ? Transurethral needle ablation (TUNA). This procedure uses radio frequencies to destroy and removea small amount of prostate tissue. ? Interstitial laser coagulation (ILC). This procedure uses a laser to destroy and remove a small amount of prostate tissue. ? Transurethral electrovaporization (TUVP). This procedure uses electrodes to destroy and remove a small amount of prostate tissue. ? Prostatic urethral lift. This procedure inserts an implant to push the lobes of the prostate awayfrom the urethra. Follow these instructions at home: ??? Take pikg-eyn-zpzsrft and prescription medicines only as told by your health care provider. ??? Monitor your symptoms for any changes. Contact your health care provider with any changes. ??? Avoid drinking large amounts of liquid before going to bed or out in public. ??? Avoid or reduce how much caffeine or alcohol you drink. ??? Give yourself time when you urinate. ??? Keep all follow-up visits. This is important. Contact a health care provider if: ??? You have unexplained back pain. ??? Your symptoms do not get (more content not included)...[facility]08-26-2025 History of Present illness Narrative* Carson Dior MD - 10/28/2024 12:03 PM EDTAssociated Problem(s): Partial small bowel obstruction (HCC) Doing well since home. Continue pureed diet with thickened liquids. Continue medications as directed. * Carson Dior MD - 10/28/2024 12:03 PM EDTAssociated Problem(s): Urinary retention Will placed in hospital due to retention. Follow with urology. * Carson Dior MD - 10/28/2024 11:30 AM EDT Images from the original note were not included. Subjective Patient ID: Amol Taylor is a 69 y.o. male who presents for Follow-up (Hospital f/u). Hospital f/u from 10/10-10/13 and 10/14-10/19 for SBO. History of MR and lives in [facility]. Patient developed vomiting and nausea. Did not c/o pain but rarely c/o pain. To ER and imaging showed SBO. NG placed and admitted. Seen by surgeon who recommended conservative treatment. Symptoms improved. NG clamped and started liquid diet. Tolerated well and advanced to soft diet. Discharged home but symptoms returned and back to hospital. Symptoms improved and discharged. Doing well since home. Remains puree diet and thickened liquids. Normal appetite and no emesis. Initially loose stools but improvingand daily BM. No cough or SOB. Previously seen by GI at [facility] who recommended avoid constipation. On linzess daily. Review of Systems Objective Physical Exam Constitutional: General: He is not in acute distress. Appearance: Normal appearance. HENT: Head: Normocephalic. Right Ear: Tympanic membrane and ear canal normal. Left Ear: Tympanic membrane and ear canal normal. Eyes: Extraocular Movements: Extraocular movements intact. Pupils: Pupils are equal, round, and reactive to light. Cardiovascular: Rate and Rhythm: Normal rate and regular rhythm. Heart sounds: No murmur heard. No friction rub. No gallop. Pulmonary: Breath sounds: Normal breath sounds. No wheezing, rhonchi or rales. Abdominal: General: Bowel sounds are normal. There is no distension. Palpations: Abdomen is soft. Tenderness: There is no abdominal tenderness. There is no guarding or rebound. Musculoskeletal: Left lower leg: No edema. Neurological: Mental Status: He is alert. Assessment/Plan Problem List Items Addressed This Visit Partial small bowel obstruction (HCC) - Primary Doing well since home. Continue pureed diet with thickened liquids. Continue medications as directed. Urinary retention Will placed in hospital due to retention. Follow with urology. documented in this encounterHermann Area District [id number] Nurse Note* Elliott Cabrera RN - 10/19/2024 3:31 PM EDT AVS reviewed with Elue Nurse at [facility] and questions answered at this time. [facility] nurse verbalized understanding and discharged home in transport vehicle. [facility]08-17-2025 Nurse Note* Elliott Cabrera RN - 10/19/2024 3:31 PM EDT AVS reviewed with Elue Nurse at [facility] and questions answered at this time. [facility] nurse verbalized understanding and discharged home in transport vehicle. * Toshia Og RN - 10/19/2024 2:43 PM EDT Transport called and will be here within the next 45-60 minutes * Nola Solo RN - 10/16/2024 5:54 AM EDT At 0500 I, Nola Solo RN, and Yolanda Gamino RN tried drawing labs for pt with no blood return. Phlebotomists Ellen and Luna also tried drawing labs with no success. * Jackie Lou RN - 10/14/2024 4:04 PM EDT Please call geriatric care manager at [phone] if information on patient needed. retail asset protection specialist notified of admission. [facility] Nurse Note* Toshia Og RN - 10/19/2024 2:43 PM EDT Transport called and will be here within the next 45-60 minutes [facility]08-17-2025 Hospital course Narrative* Sanam Guido MD - 10/19/2024 11:47 AM EDT Images from the original note were not included. [facility] [address] [id number] Hospital Medicine Discharge Summary Patient: Amol Taylor Date of : 1955 Room: 01 Encounter date: 10/19/24 Hospital Day: 6 DATE OF ADMISSION: 10/14/2024 DATE OF DISCHARGE:10/19/2024 DISCHARGE DIAGNOSES Principal Problem: Small bowel obstruction ([facility]) Active Problems: Seizures ([facility]) Mental retardation Class 2 obesity due to excess calories with body mass index (BMI) of 36.0 to 36.9 in adult Urinary retention Hypomagnesemia [employer] General surgery PCP: CARSON DIOR MD PROCEDURES none HOSPITAL COURSE SUMMARY Amol Taylor is a 69 y.o. male with seizure, developmental delay presents with Diarrhea (Loose stools since yesterday, was discharged yesterday from [facility] with small bowel obstruction. ) Per EMS patient is having loose stools since yesterday. patient has been recently discharged from [facility] for concerns of small-bowel obstruction. Patient states that he had 1 episode of vomiting today. Patient denies chest pain shortness on breath cough diaphoresis dysuria fever or chills SBO, clinically improved, tolerated regular diet, general surgery following,. Continue levofloxacinand metronidazole 5 days at d/c. Encourage activity and bronchopulmonary hygiene. Sepsis suspected, no-not clinically evident at this time. Discharge Day Progress Note 10/19/24 No overnight events and remains hemodynamically stable. Review of Systems Unable to perform ROS: Other (Intellectual disability) BP 122/70 Pulse 59 Temp 36.4 C (97.6 F) (Oral) Resp 20 Ht 167.6 cm (5' 5.98 ) Wt 97.5 kg (214 lb 14.4 oz) SpO2 98% BMI 34.70 kg/m Temp: [36.4 C (97.5 F)-36.8 C (98.3 F)] 36.4 C (97.6 F) Pulse: [59-73] 59 Resp: [18-20] 20 BP: (109-153)/(68-85) 122/70 SpO2: [92 %-100 %] 98 % O2 Device: None (Room air) O2 Flow Rate (L/min): [0 L/min] 0 L/min Intake/Output Summary (Last 24 hours) at 10/19/2024 1305 Last data filed at 10/19/2024 0640 Gross per 24 hour Intake -- Output 500 ml Net -500 ml Physical Exam Constitutional: General: He is not in acute distress. Cardiovascular: Rate and Rhythm: Normal rate and regular rhythm. Heart sounds: Heart sounds are distant. Comments: Mild generalized anasarca Pulmonary: Effort: Pulmonary effort is normal. Breath sounds: Decreased breath sounds and rhonchi present. No wheezing or rales. Abdominal: General: Abdomen is flat. There is no distension. Palpations: Abdomen is soft. Tenderness: There is no abdominal tenderness. Musculoskeletal: Right lower leg: No edema. Left lower leg: No edema. Skin: General: Skin is warm and dry. Capillary Refill: Capillary refill takes less than 2 seconds. Coloration: Skin is pale. Findings: No rash. Neurological: General: No focal deficit present. Mental Status: Mental status is at baseline. Psychiatric: Behavior: Behavior is cooperative. Code Status: Full Code Labs Recent Results (from the past 48 hours) Magnesium Collection Time: 10/17/24 4:04 PM Result Value Ref Range MAGNESIUM 1.8 1.8 - 2.6 mg/dL Potassium Collection Time: 10/17/24 4:04 PM Result Value Ref Range POTASSIUM 3.7 3.5 - 5.0 mmol/L Comprehensive metabolic panel Collection Time: 10/18/24 4:29 AM Result Value Ref Range SODIUM 139 134 - 146 mmol/L POTASSIUM 3.9 3.5 - 5.0 mmol/L CHLORIDE 107 98 - 109 mmol/L CARBON DIOXIDE 21 (L) 22 - 32 mmol/L ANION GAP 11 5 - 15 mmol/L BLOOD UREA NITROGEN 9 5 - 27 mg/dL CREATININE 0.81 0.70 - 1.20 mg/dL GLUCOSE 106 (H) 65 - 99 mg/dL CALCIUM 8.5 8.5 - 10.5 mg/dL TOTAL PROTEIN 7.0 6.0 - 8.0 g/dL ALBUMIN 3.4 3.2 - 5.3 g/dL ALKALINE PHOSPHATASE 121 39 - 130 U/L AST 17 <=41 U/L ALT 18 <=40 U/L BILIRUBIN,TOTAL 0.5 0.3 - 1.2 mg/dL EGFR Non-Race Dependent >90 >=60 ml/min/1.73sq.m Magnesium Collection Time: 10/18/24 4:29 AM Result Value Ref Range MAGNESIUM 2.1 1.8 - 2.6 mg/dL CBC auto differential Collection Time: 10/18/24 4:29 AM Result Value Ref Range WBC 7.2 4 - 11 x10E9/L RBC Count 4.15 4.1 - 5.7 X10E12/L Hemoglobin 13.3 13 - 17 g/dL Hematocrit 38.5 (L) 39 - 50 % MCV 93 80 - 100 fL MCH 31.9 27 - 34 pg MCHC 34.4 32 - 36 g/dL RDW 12.6 11.5 - 15 % Platelet Count 220 150 - 450 X10E9/L MPV 7.5 7 - 12 fL Neutrophils % 68.8 % Lymphocytes % 20.2 % Monocytes % 8.8 % Eosinophils % 1.7 % Basophils % 0.5 % Neutrophils Absolute (A) 5.0 1.5 - 6.6 10*3/uL Lymphocytes Absolute 1.5 1.0 - 3.5 10*3/uL Monocytes Absolute 0.6 0.0 - 0.9 10*3/uL Eosinophils Absolute 0.1 0.0 - 0.4 10*3/uL Basophils Absolute 0.0 0.0 - 0.2 10*3/uL Differential Type AUTOMATED DIFFERENTIAL Comprehensive metabolic panel Collection Time: 10/19/24 5:28 AM Result Value Ref Range SODIUM 139 134 - 146 mmol/L POTASSIUM 4.1 3.5 - 5.0 mmol/L CHLORIDE 110 (H) 98 - 109 mmol/L CARBON DIOXIDE 21 (L) 22 - 32 mmol/L ANION GAP 8 5 - 15 mmol/L BLOOD UREA NITROGEN 7 5 - 27 mg/dL CREATININE 0.85 0.70 - 1.20 mg/dL GLUCOSE 97 65 - 99 mg/dL CALCIUM 8.7 8.5 - 10.5 mg/dL TOTAL PROTEIN 6.5 6.0 - 8.0 g/dL ALBUMIN 3.3 3.2 - 5.3 g/dL ALKALINE PHOSPHATASE 117 39 - 130 U/L AST 24 <=41 U/L ALT 22 <=40 U/L BILIRUBIN,TOTAL 0.4 0.3 - 1.2 mg/dL EGFR Non-Race Dependent >90 >=60 ml/min/1.73sq.m Magnesium Collection Time: 10/19/24 5:28 AM Result Value Ref Range MAGNESIUM 1.6 (L) 1.8 - 2.6 mg/dL CBC auto differential Collection Time: 10/19/24 5:28 AM Result Value Ref Range WBC 6.3 4 - 11 x10E9/L RBC Count 3.92 (L) 4.1 - 5.7 X10E12/L Hemoglobin 12.4 (L) 13 - 17 g/dL Hematocrit 36.4 (L) 39 - 50 % MCV 93 80 - 100 fL MCH 31.6 27 - 34 pg MCHC 34.1 32 - 36 g/dL RDW 12.6 11.5 - 15 % Platelet Count 192 150 - 450 X10E9/L MPV 7.3 7 - 12 fL Neutrophils % 57.9 % Lymphocytes % 28.4 % Monocytes % 8.4 % Eosinophils % 4.5 % Basophils % 0.8 % Neutrophils Absolute (A) 3.7 1.5 - 6.6 10*3/uL Lymphocytes Absolute 1.8 1.0 - 3.5 10*3/uL Monocytes Absolute 0.5 0.0 - 0.9 10*3/uL Eosinophils Absolute 0.3 0.0 - 0.4 10*3/uL Basophils Absolute 0.0 0.0 - 0.2 10*3/uL Differential Type AUTOMATED DIFFERENTIAL Radiology Fluoroscopy small bowel Result Date: 10/17/2024 Narrative: Clinical history: Small bowel obstruction. COMPARISON: 10/11/2024. FINDINGS: Para Educator film reveals a nonspecific nonobstructive bowel gas pattern. Small volume residual contrast noted within decompressed colon. Nasogastric tube is present. 120 mL Gastrografin administered via nasogastric tube. On the 4 hour image there is contrast noted throughout nondilated small bowel. There is some contrast within right hemicolon, however it is unclear if this represents the residual contrast from prior study seen on the contract modeler image. 24 hour image reveals contrast within decompressed colon. IMPRESSION: 1. No evidence for complete small bowel obstruction with contrast identified within decompressed c olon on the 24-hour images. Finalized by Luz Marina Louise MD on 10/17/2024 9:05 AM X-ray abdomen ap 1 view Result Date: 10/15/2024 Narrative: History: Small bowel obstruction Exam/Technique: A portable supine views of the abdomen were obtained. Comparison: 10/14/2024 Findings: There has been improvement in the small bowel dilatation seen on the prior study. Gas distended small bowel persists but decreased in caliber and number since the prior study. Gas is seen in the colon to the level the rectum. Nasogastric tube remains inplace. IMPRESSION: Improved but persistent small bowel dilatation. Finalized by David Do MD on 10/15/2024 10:49 PM X-ray chest 2 views Result Date: 10/15/2024 Narrative: Chest 2 views History: Coarse rhonchi throughout all lung matta rule out pneumonia versus atelectasis Comparison: 10/11/2024 Findings: Chest 2 views. Stable cardiomegaly mediastinal silhouette. This patient rotation towards the left compromising assessment. There is no pneumothorax. Thereis bilateral lower lung atelectasis. Impression: Stable appearance of the chest and likely bilateral lower lung atelectasis. Finalized by Irwin Rivera MD on 10/15/2024 7:45 AM X-ray abdomen ap 1 view Result Date: 10/14/2024 Narrative: History: NG placement EXAM: Abdomen supine COMPARISON: CT abdomen pelvis IMPRESSION: NG tube tip in gastric fundus, in satisfactory position. Finalized by Lizz Montalvo MD on 10/14/2024 6:[address] abdomen and pelvis with contrast Result Date: 10/14/2024 Narrative: STUDY: ABDOMEN AND PELVIS CT WITH CONTRAST CLINICAL HISTORY: Abdominal pain. Small bowelobstruction. Questionable small bowel obstruction COMPARISON: 04/07/2023 TECHNIQUE: CT abdomen and pelvis was performed utilizing 5 mm axial reconstructions following the uneventful administration of 100 cc Omnipaque 300 nonionic intravenous contrast. Coronal and sagittal reformatted images as well as delayed excretory phase images were obtained and reviewed. Automated exposure control was utilized. FINDINGS: Abdomen: No pleural or pericardial effusion and lung bases. Dependent changes and atelectasis in both lungs. Severe distention of the stomach. There is fluid-filled dilated small bowel loops with relatively decompressed distal small bowel loops could represent evolving ileus or obstruction. There is no evidence of free intraperitoneal gas. The liver, adrenal glands, pancreas and spleenappear grossly unremarkable. There is a calcified subcapsular left renal lesion stable likely representing sequela of prior subcapsular hematoma. No renal collecting system dilatation. No enlarged mesenteric or retroperitoneal lymph nodes. Pelvis: No free pelvic fluid. No enlarged pelvic lymph nodes. Urinary bladder is grossly unremarkable. Degenerative change of the thoracolumbar spine. No verteb ral body height loss. IMPRESSION: 1. Fluid-filled mildly dilated proximal small bowel loops and distention of the stomach represent evolving small bowel obstruction or ileus. Consider Gastrografin challenge. All CT scans at this facility use dose modulation, iterative reconstruction, and/or weight based dosing when appropriate to reduce radiation dose to as low as reasonably achievable. Finalized by Irwin Rivera MD on 10/14/2024 2:19 PM Fluoroscopy small bowel Result Date: 10/11/2024 Narrative: FL SMALL BOWEL HISTORY: Small bowel obstruction, abdominal distention COMPARISON: Same day abdominal radiograph FINDINGS: Images: 3, same day abdominal radiograph was used as contract modeler imaging. Para Educator view shows a few gas- filled loops of distended small bowel as well as gas within the large bowel and rectum. Enteric tube visualized with side-port terminating over the expected location of the stomach. Linear calcifications overlying the left renal fossa which correspond to peripherally calcified renal cyst visualized on CT abdomen and pelvis dated 04/07/2023. Suture material visualized in the left lower quadrant. Normal progression of enteric contrast in the small bowel. No significantlydilated loops of small bowel. Enteric contrast visualized to reach the cecum by 4 hours following administration via enteric tube. IMPRESSION: * No evidence of high-grade small bowel obstruction. Contrast progresses to large bowel by the 4 hour time point. Approved by Whitney Burciaga MD on 10/11/2024 2:44 PM I, Edmar Dos Santos MD have personally reviewed the image(s) and agree with and/or edited the report Finalized by Edmar Dos Santos MD on 10/11/2024 3:47 PM X-ray chest 1 view Result Date: 10/11/2024 Narrative: EXAM: XR CHEST 1 VW CLINICAL INFORMATION: rhonchi on exam. COMPARISON: 04/12/2023 FINDINGS: The tip of the gastric tube is in the stomach. There are low lung volumes with associated hypoventilatory changes. There may be a trace left pleural effusion. There is no pulmonary edema. There are no definite focal consolidations. Stable cardiomediastinal silhouette. Stable left chest wall devicewith a lead extending into the neck. IMPRESSION: 1. Gastric tube with tip in stomach. 2. Possible trace left pleural effusion. There is no evidence of pulmonary edema. Finalized by Rk Borges MD on 10/11/2024 1:16 PM X-ray abdomen ap 1 view Result Date: 10/11/2024 Narrative: EXAM: XR ABDOMEN AP 1 VW CLINICAL INFORMATION: f/u SBO. COMPARISON: 10/09/2024 FINDINGS: The tip of the gastric tube is in the stomach. There has been interval improvement in air-filled dilated loops of small bowel. There is no convincing evidence for obstruction on the current examination. Left lower quadrant postsurgical changes are noted. IMPRESSION: 1. Gastric tube tip in stomach. 2.Interval resolution of previously seen changes of small bowel obstruction. There is no convincing evidence for obstruction on the current examination. 3. Post surgical changes of the left lower quadrant. Finalized by Rk Borges MD on 10/11/2024 1:05 PM X-ray abdomen NG Tube placement 1 view Result Date: 10/09/2024 Narrative: Abdomen: HISTORY: Enteric tube placement. Single view of the abdomen was obtained. Enteric tube tip is likely within mid stomach. Small bowel is distended to approximately 5.7 cm. Findingssuggest small bowel obstruction. No free air. IMPRESSION: Suspect small bowel obstruction. Enteric tube tip within mid stomach. Finalized by Dimas Delgado MD on 10/09/2024 11:[address] abdomen and pelvis without contrast Result Date: 10/09/2024 Narrative: EXAM: CT ABDOMEN AND PELVIS WITHOUT CONTRAST 10/09/2024 02:17:59 PM TECHNIQUE: CT of theabdomen and pelvis was performed without the administration of intravenous contrast. Multiplanar reformatted images are provided for review. Automated exposure control, iterative reconstruction, and/or weight based adjustment of the mA/kV was utilized to reduce the radiation dose to as low as reasonably achievable. COMPARISON: XR Abdomen 08/21/2024; CT Abdomen Pelvis 08/18/2024. CLINICAL HISTORY:Diarrhea. FINDINGS: LOWER CHEST: No acute abnormality. LIVER: The liver is unremarkable. GALLBLADDER AND BILE DUCTS: Gallbladder is unremarkable. No biliary ductal dilatation. SPLEEN: No acute abnormality. PANCREAS: No acute abnormality. ADRENAL GLANDS: No acute abnormality. KIDNEYS, URETERS AND BLADDER: A partially calcified subcapsular hematoma is seen involving the left kidney and is similar to the prior examination. No stones in the kidneys or ureters. No hydronephrosis. No perinephric or periureteral stranding. Urinary bladder is unremarkable. GI AND BOWEL: Distended stomach without obstructing cause seen on this examination. Distended small bowel loops with air-fluid levels with air-fluid levels in the proximal aspect, although more normal caliber is seen distally. A definite transition point is not seen. PERITONEUM AND RETROPERITONEUM: No ascites. No free air. VASCULATURE: Aorta is normal in caliber. LYMPH NODES: No lymphadenopathy. REPRODUCTIVE ORGANS: The prostate is atrophic. BONES AND SOFT TISSUES: No acute osseous abnormality. No focal soft tissue abnormality. Impression: 1. Distended small bowel loops with air-fluid levels, without a definite transition point, possibly ileus 2. Partially calcified subcapsular hematoma involving the left kidney, similar tothe prior examination. DISCHARGE INSTRUCTION Disposition: Home Condition: Stable Activity: activity as tolerated Diet: Adult diet Regular Texture Adult diet Follow up: CARSON DIOR MD within 7-14 days. Urology Labs/Imaging/Pathology: none Discharge Medications: Medication List START taking these medications Instructions Last Dose Given Next Dose Due levoFLOXacin 500 mg tablet Commonly known as: LEVAQUIN Take 1 tablet (500 mg total) by mouth in the morning for 5 days. metroNIDAZOLE 250 mg tablet Commonly known as: FLAGYL Take 1 tablet (250 mg total) by mouth 3 (three) times a day for 5 days. CONTINUE taking these medications Instructions Last Dose Given Next Dose Due TAYE-GEST ANTACID 200 mg calcium (500 mg) chewable tablet Generic drug: calcium carbonate Chew 1 tablet (200 mg total) and swallow in the morning and 1 tablet (200 mg total) before bedtime. cholecalciferol 1,000 units tablet Commonly known as: cholecalciferol Take 1 tablet (1,000 Units total) by mouth daily. cyanocobalamin 1000 MCG tablet Take 1 tablet (1,000 mcg total) by mouth in the morning. finasteride 5 mg tablet Commonly known as: PROSCAR Take 1 tablet (5 mg total) by mouth daily. hydrOXYzine 25 mg tablet Commonly known as: ATARAX Take 1 tablet (25 mg total) by mouth every 12 (twelve) hours as needed for itching. * lamoTRIgine 200 mg tablet Commonly known as: LaMICtal Take 2 tablets (400 mg total) by mouth every morning. 400mg in AM and 600mg in evening * lamoTRIgine 200 mg tablet Commonly known as: LaMICtal Take 3 tablets (600 mg total) by mouth nightly. latanoprost 0.005 % ophthalmic solution Commonly known as: XALATAN Administer 1 drop to both eyes nightly. * levETIRAcetam 1000 mg tablet Commonly known as: KEPPRA Take 2 tablets (2,000 mg total) by mouth once daily at bedtime. * levETIRAcetam 750 mg tablet Commonly known as: KEPPRA Take 2 tablets (1,500 mg total) by mouth in the morning. LINZESS 145 mcg capsule Generic drug: linaCLOtide Take 1 capsule (145 mcg total) by mouth every morning before breakfast. magnesium oxide 400 mg tablet Commonly known as: MAGOX Take 1 tablet (400 mg total) by mouth in the morning. meclizine 25 mg tablet Commonly known as: ANTIVERT Take 1 tablet (25 mg total) by mouth daily. melatonin 3 mg capsule Take 1 capsule by mouth nightly as needed (insomnia). olopatadine 0.2 % drops Commonly known as: PATADAY Instill 1 drop to eye in the morning. pantoprazole 40 mg EC tablet Commonly known as: PROTONIX Take 1 tablet (40 mg total) by mouth in the morning. * primidone 250 mg tablet Commonly known as: MYSOLINE Take 1 tablet (250 mg total) by mouth in the morning. * primidone 250 mg tablet Commonly known as: MYSOLINE Take 1.5 tablets (375 mg total) by mouth nightly. SENEXON-S 8.6-50 mg Generic drug: sennosides-docusate sodium Take 2 tablets by mouth in the morning. tamsulosin 0.4 mg capsule Commonly known as: FLOMAX Take 1 capsule (0.4 mg total) by mouth 2 (two) times a day. VIMPAT 150 mg tablet Generic drug: lacosamide Take 1 tablet (150 mg total) by mouth 2 (two) times a day. * This list has 6 medication(s) that are the same as other medications prescribed for you. Read thedirections carefully, and ask your doctor or other care provider to review them with you. ASK your doctor about these medications Instructions Last Dose Given Next Dose Due albuterol 90 mcg/actuation inhaler Commonly known as: PROVENTIL HFA;VENTOLIN HFA Inhale 2 puffs every 4 (four) hours as needed for wheezing. diazePAM 5-7.5-10 mg rectal kit Commonly known as: DIASTAT ACUDIAL Insert 20 mg into the rectum as needed for seizures (seizure > 15 minutes). LORazepam 0.5 mg tablet Commonly known as: ATIVAN Take 1 tablet (0.5 mg total) by mouth every 8 (eight) hours as needed for anxiety. ondansetron ODT 4 mg disintegrating tablet Commonly known as: ZOFRAN ODT Dissolve 1 tablet (4 mg total) on tongue every 12 (twelve) hours as needed for nausea or vomiting. polyethylene glycol 17 gram packet Commonly known as: GLYCOLAX Take 17 g by mouth 2 (two) times a day as needed (constipation). Where to Get Your Medications These medications were sent to [facility] - [place], [place] - [address], [facility] [address] levoFLOXacin 500 mg tablet metroNIDAZOLE 250 mg tablet >30 minutes were spent on discharging this patient. RALPH Zavala 10/19/2024 1:05 PM [facility] 7AM-7PM & 7PM-7AM: EpicChat or page through On[employer]. RALPH Zavala 10/19/24 1151 Physician Attestation I, Sanam Guido MD, personally performed a face to face diagnostic evaluation on this patient. I have reviewed the note authored by the advance practice provider including history, review of systems,physical examination,medical decision making and agree with the assessment and plan as written. I have seen and evaluated the patient, I have repeated the gee portions of the physical exam and concur with the MEMO findings. I have reviewed all laboratory findings and imaging reports/films. I agree with the plan as noted. Patient with intellectual disabilities was admitted with small-bowel obstruction NG tube was placedpatient was started on IV fluids IV antibiotics. General surgery services were consulted. Patient was managed conservatively per General surgery. patient's symptoms improved during hospital stay patient is being discharged [facility]* PT/OT/REGULATORY ADMINISTRATOR - Wilmar Nguyễn, JOB MOLDER - 10/19/2024 8:52 AM EDT Physical Therapy Treatment Discharge Recommendations for Safe Patient Transition PT Discharge Disposition Recommendation: Post acute - moderate PT Post Acute Moderate Rehab Needs: Tolerate 1-2 hrs of therapy 3-5 days/wk 6 Clicks: Basic Mobility Turning from your back to your side while in a flat bed without using bed rails?: A little Moving from lying on your back to sitting on side of flat bed without using bed rails?: A lot Moving to and from bed to a chair (including w/c)?: Total Standing up from a chair using your arms (e.g. w/c or bedside chair)?: Total To walk in hospital room?: Total Climbing 3-5 steps with a railing?: Total Scoring 6 Clicks: Basic Mobility Raw Score: 9 CMS G Code Modifier: CL Therapy Plan Need for skilled Physical Therapy to address deficits in functional mobility due to a status decline resulting from recent medical condition. PT Treatment/Interventions: Functional transfer training, Bed mobility, Patient/family training, Gait training, LE strengthening/ROM, Balance PT Frequency: 5-6days/week PT Duration: 2 weeks Assessment Patient Assessment Therapy Problem List: Decreased balance, Decreased ADL status, Decreased self- care trans, Decreasedmobility, Decreased LE strength Patient Response to Treatment: Progressing toward goals Mood/Affect: Appropriate for circumstances Rehab Prognosis: Good, Fair, With continued PT status post acute discharge Visit RN Communication: Yes Medical Record Reviewed: Yes Activity Therapy Type of Visit: Activities Treatment PT Type of Visit: Treatment Precautions Activity: ok to treat per Scott BHATT Equipment: NG tube, catheter Pain Assessment Pain Assessment: No/denies pain Cognition Orientation Level: Oriented to person, Oriented to place, Disoriented to time, Disoriented to situation, Baseline, Appropriate for developmental age Bed Mobility Supine to Sit: Min assist Sit to Supine: Contact guard assist Transfers Sit to Stand: Unable to assess Gait Other: unable to assess Balance Sitting Balance: Static: Fair Sitting Balance: Dynamic: Fair 10/19/24 0800 LE Seated LE seated exercises performed? Yes Long arc quads 10x Other Seated exercises to improve strength, mobility Activity Tolerance Endurance: Tolerates <30 minutes activity WITHOUT vital sign changes Plan Physical Therapy Care Plan Physical Therapy Care Plan (Active) Template: PT - Physical Therapy Problem: Bed Mobility Dates: Start: 10/18/24 Disciplines: PT Goal: Patient will perform bed mobility with Contact Guard Dates: Start: 10/18/24 Expected End: 11/01/24 Disciplines: PT Problem: Gait Dates: Start: 10/18/24 Disciplines: PT Goal: Patient will perform gait with Moderate Assist Dates: Start: 10/18/24 Expected End: 11/01/24 Description: If able, pt will be able to ambulate 5-10 feet with least restrictive device safely. Disciplines: PT Problem: Standing Balance Dates: Start: 10/18/24 Disciplines: PT Goal: Other sitting and standing balance goal (customize) Dates: Start: 10/18/24 Expected End: 11/01/24 Description: Goal Description:Improve sitting balance to good minus and standing balance if able tofair for safety of functional mobility. Disciplines: PT Problem: Strength Dates: Start: 10/18/24 Disciplines: PT Goal: Improve strength Dates: Start: 10/18/24 Expected End: 11/01/24 Description: Of extremity/ location:Improve strength to fair plus for safety of transfers Disciplines: PT Problem: Transfers Dates: Start: 10/18/24 Disciplines: PT Goal: Patient will perform transfers with Minimum Assist Dates: Start: 10/18/24 Expected End: 11/01/24 Disciplines: PT Outcomes Date/Time User Outcome 10/19/24845 Wilmar Nguyễn PTA Progressing Goal Note filed on 10/19/24845 by Wilmar Nguyễn PTA Evaluation of progress towards goal: CGA for supine to sit and sit to supine with patient laying onincline. Physical Therapy Care Plan (Resolved) There are no resolved problems. Principal Problem: Small bowel obstruction (CMS-HCC) Active Problems: Seizures (CMS-HCC) Mental retardation Class 2 obesity due to excess calories with body mass index (BMI) of 36.0 to 36.9 in adult Urinary retention Hypomagnesemia Cosigned by Amarilys Mendez PT at 10/19/2024 8:56 AM EDT Associated attestation - Amarilys Mendez PT - 10/19/2024 8:56 AM EDT I have reviewed and agree with this note and education documentation for this visit. Dang Le [id number] Miscellaneous Notes* PT/OT/REGULATORY ADMINISTRATOR - Wilmar Nguyễn PTA - 10/19/2024 8:52 AM EDT Physical Therapy Treatment Discharge Recommendations for Safe Patient Transition PT Discharge Disposition Recommendation: Post acute - moderate PT Post Acute Moderate Rehab Needs: Tolerate 1-2 hrs of therapy 3-5 days/wk 6 Clicks: Basic Mobility Turning from your back to your side while in a flat bed without using bed rails?: A little Moving from lying on your back to sitting on side of flat bed without using bed rails?: A lot Moving to and from bed to a chair (including w/c)?: Total Standing up from a chair using your arms (e.g. w/c or bedside chair)?: Total To walk in hospital room?: Total Climbing 3-5 steps with a railing?: Total Scoring 6 Clicks: Basic Mobility Raw Score: 9 CMS G Code Modifier: CL Therapy Plan Need for skilled Physical Therapy to address deficits in functional mobility due to a status decline resulting from recent medical condition. PT Treatment/Interventions: Functional transfer training, Bed mobility, Patient/family training, Gait training, LE strengthening/ROM, Balance PT Frequency: 5-6days/week PT Duration: 2 weeks Assessment Patient Assessment Therapy Problem List: Decreased balance, Decreased ADL status, Decreased self- care trans, Decreasedmobility, Decreased LE strength Patient Response to Treatment: Progressing toward goals Mood/Affect: Appropriate for circumstances Rehab Prognosis: Good, Fair, With continued PT status post acute discharge Visit RN Communication: Yes Medical Record Reviewed: Yes Activity Therapy Type of Visit: Activities Treatment PT Type of Visit: Treatment Precautions Activity: ok to treat per RNScott Equipment: NG tube, catheter Pain Assessment Pain Assessment: No/denies pain Cognition Orientation Level: Oriented to person, Oriented to place, Disoriented to time, Disoriented to situation, Baseline, Appropriate for developmental age Bed Mobility Supine to Sit: Min assist Sit to Supine: Contact guard assist Transfers Sit to Stand: Unable to assess Gait Other: unable to assess Balance Sitting Balance: Static: Fair Sitting Balance: Dynamic: Fair 10/19/24 0800 LE Seated LE seated exercises performed? Yes Long arc quads 10x Other Seated exercises to improve strength, mobility Activity Tolerance Endurance: Tolerates <30 minutes activity WITHOUT vital sign changes Plan Physical Therapy Care Plan Physical Therapy Care Plan (Active) Template: PT - Physical Therapy Problem: Bed Mobility Dates: Start: 10/18/24 Disciplines: PT Goal: Patient will perform bed mobility with Contact Guard Dates: Start: 10/18/24 Expected End: 11/01/24 Disciplines: PT Problem: Gait Dates: Start: 10/18/24 Disciplines: PT Goal: Patient will perform gait with Moderate Assist Dates: Start: 10/18/24 Expected End: 11/01/24 Description: If able, pt will be able to ambulate 5-10 feet with least restrictive device safely. Disciplines: PT Problem: Standing Balance Dates: Start: 10/18/24 Disciplines: PT Goal: Other sitting and standing balance goal (customize) Dates: Start: 10/18/24 Expected End: 11/01/24 Description: Goal Description:Improve sitting balance to good minus and standing balance if able tofair for safety of functional mobility. Disciplines: PT Problem: Strength Dates: Start: 10/18/24 Disciplines: PT Goal: Improve strength Dates: Start: 10/18/24 Expected End: 11/01/24 Description: Of extremity/ location:Improve strength to fair plus for safety of transfers Disciplines: PT Problem: Transfers Dates: Start: 10/18/24 Disciplines: PT Goal: Patient will perform transfers with Minimum Assist Dates: Start: 10/18/24 Expected End: 11/01/24 Disciplines: PT Outcomes Date/Time User Outcome 10/19/2446 Wilmar Nguyễn PTA Progressing Goal Note filed on 10/19/24845 by Wilmar Nguyễn PTA Evaluation of progress towards goal: CGA for supine to sit and sit to supine with patient laying onincline. Physical Therapy Care Plan (Resolved) There are no resolved problems. Principal Problem: Small bowel obstruction (CMS-HCC) Active Problems: Seizures (CMS-HCC) Mental retardation Class 2 obesity due to excess calories with body mass index (BMI) of 36.0 to 36.9 in adult Urinary retention Hypomagnesemia Cosigned by Amarilys Mendez PT at 10/19/2024 8:56 AM EDT Associated attestation - Amarilys Mendez, PT - 10/19/2024 8:56 AM EDT I have reviewed and agree with this note and education documentation for this visit. * Plan of Care - Nola Solo RN - 10/18/2024 7:23 PM EDT Problem: Pain Goal: Patient goal is pain score less than 4, able to rest, and participant in treatment plan as appropriate Description: INTERVENTIONS: 1. Encourage patient or legal mortician supplies sales representative to report early pain and ask [...] per policy 9. Teach patient or legal mortician supplies sales representative interventions for comforting Outcome: Progressing Note: Pt able to report pain according to 0/10 pain scale. Medicating patient for pain per orders. Problem: Safety Goal: Patient will be injury free during hospitalization Description: INTERVENTIONS: 1. Assess patient's risk for falls and implement fall prevention plan of care per policy 2. Provide and maintain a safe environment 3. Proper use of double Identifiers 4. Medication administration using the 5 rights 5. Hand hygiene 6. Specimens are labeled at the bedside 7. Instruct patient/ patient mortician supplies sales representative about use of safety devices 8. Include patient/ patient mortician supplies sales representative in decisions related to safety Outcome: Progressing Note: Pt's risk for falls assessed and fall prevention implemented as needed, safe environment provided and maintained, hand hygiene completed. Problem: Infection Goal: Absence of infection during hospitalization Description: INTERVENTIONS 1. Assess and monitor for signs and symptoms of infection. 2. Monitor lab/diagnostic results. 3. Monitor all insertion sites i.e., indwelling lines, tubes and drains. 4. Monitor endotracheal (as able) and nasal secretions for changes in amount and color. 5. Administer medications as ordered. 6. Instruct and encourage patient and family to use good hand hygiene technique. 7. Identify and instruct patient/patient mortician supplies sales representative in use of appropriate isolation precautionsfor identified infection/symptoms. 8. Provide and discuss with patient/patient mortician supplies sales representative on educational MDRO sheet. 9. Encourage and monitor nutritional status daily and consult movie shot cameraman if indicated. 10. Implement neutropenic guidelines as needed. Outcome: Progressing Note: Patient VS WNL, remains afebrile for shift. Continue to monitor. * Plan of Care - Elliott Cabrera RN - 10/18/2024 9:54 AM EDT Problem: Potential for Compromised Skin Integrity Goal: Skin integrity is maintained or improved Description: Patient's goal is: INTERVENTIONS 1. Perform initial skin assessment on admission and as needed 2. Turn patient every 2 hours and PRN 3. Relieve pressure to bony prominences 4. Avoid shearing 5. Keep skin clean and dry 6. Alternate a full bath with partial baths for elderly 7. Apply lotion/moisturizer on skin 8. Monitor patient's hygiene practices 9. Float heels 10. Collaborate with interdisciplinary team and initiate plans and interventions as needed Outcome: Progressing Note: Performed initial skin assessment on admission and as needed. Turned patient every 2 hours and PRN.Relieved pressure to bony prominences. Avoided shearing. Kept skin clean and dry. Problem: Urinary Incontinence Goal: Perineal skin integrity [...] and interventions as needed Outcome: Progressing Note: Assessed genitourinary system, perineal skin, labs (urinalysis), and kept skin clean and dry . * PT/OT/REGULATORY ADMINISTRATOR - Amarilys Mendez PT - 10/18/2024 9:13 AM EDT Physical Therapy Evaluation Discharge Recommendations for Safe Patient Transition PT Discharge Disposition Recommendation: Post acute - moderate PT Post Acute Moderate Rehab Needs: Tolerate 1-2 hrs of therapy 3-5 days/wk 6 Clicks: Basic Mobility Turning from your back to your side while in a flat bed without using bed rails?: A little Moving from lying on your back to sitting on side of flat bed without using bed rails?: A lot Moving to and from bed to a chair (including w/c)?: Total Standing up from a chair using your arms (e.g. w/c or bedside chair)?: Total To walk in hospital room?: Total Climbing 3-5 steps with a railing?: Total Scoring 6 Clicks: Basic Mobility Raw Score: 9 [facility] G Code Modifier: CL Therapy Plan Need for skilled Physical Therapy to address deficits in functional mobility due to a status decline resulting from recent medical condition. Pt resting in bed and did not want to get out of bed and states he stays in bed until he gets his medicine and likes to stay in bed. Pt did agree then to sit up at edge of bed with PT. Pt with more difficulty getting up to sitting than back to supine position. Pt sat at edge of bed for a few minutes. Then he asked to lay back down. Pt back resting in bed and call light within reach and all needs met upon departure. 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(jerking motions) // has a VNS implant which decreased grand mal seizures/ jerking episod weekly Uninodular goiter Urine incontinence Past Surgical History: Procedure Laterality Date CLAVICLE SURGERY COLONOSCOPY CYSTOCELE REPAIR 2015 EXCHANGE STIMULATOR BATTERY VAGAL NERVE N/A 03/23/2020 Performed by Nicola Mahan MD at [facility] 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 2004 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 REPAIR 7 months old SMALL INTESTINE SURGERY 1985, 1992, 1993 s/p diverticulitis; bowel obstruction x 2 PT Treatment/Interventions: Functional transfer training, Bed mobility, Patient/family training, Gait training, LE strengthening/ROM, Balance PT Frequency: 5-6days/week PT Duration: 2 weeks Assessment Patient Assessment Therapy Problem List: Decreased balance, Decreased ADL status, Decreased self- care trans, Decreasedmobility, Decreased LE strength Patient Response to Treatment: Tolerated evaluation without adverse reaction Mood/Affect: Appropriate for circumstances Rehab Prognosis: Good, Fair, With continued PT status post acute discharge Visit RN Communication: Yes Medical Record Reviewed: Yes PT Type of Visit: Evaluation Precautions Activity: as tolerated Equipment: IV, NG tube, catheter Telemetry/Talcer: Yes Subjective Physical Therapy Comments: pt kept repeating that he did not want to get up until he had his medicine and that he just stays in bed and wants his medicine. Pain Assessment Pain Assessment: No/denies pain (pt said no when asked if he had pain anywhere) Home Living Type of Home: Other (Comment) ([facility]) Other : pt is a poor historian. Lives in a [facility] and gets help from staff. Prior Function Receives Help From: Other (Comment) (caregivers) Level of Mobility: Needs assistance with ADLs or functional transfers or gait Homemaking Assistance: Needs assistance Other: Pt states he stays in bed most days and sometimes will get in a wheelchair. Hearing / Speech / Vision Hearing: Within Functional Limits Cognition Orientation Level: Oriented to person Sensation Overall Sensation Status: (pt did not c/o numbness or tingling.) Bed Mobility Rolling: Min assist, Mod assist Supine to Sit: Mod assist, Max assist Sit to Supine: Min assist, Mod assist Transfers Sit to Stand: Unable to assess Stand to Sit: Unable to assess Bed to Chair: Unable to assess Other: pt did not want to get up until he had his medicine, but agreed to sit up at ege of bed today. Gait Gait Assistance: Unable to assess Balance Sitting Balance: Static: Fair Sitting Balance: Dynamic: Fair RLE Assessment: (ROM limited and fair strength) LLE Assessment: (ROM limited and fair strength) Activity Tolerance Endurance: Tolerates <30 minutes activity WITHOUT vital sign changes Plan Physical Therapy Care Plan Physical Therapy Care Plan (Active) Template: PT - Physical Therapy Problem: Bed Mobility Dates: Start: 10/18/24 Disciplines: PT Goal: Patient will perform bed mobility with Contact Guard Dates: Start: 10/18/24 Expected End: 11/01/24 Disciplines: PT Problem: Gait Dates: Start: 10/18/24 Disciplines: PT Goal: Patient will perform gait with Moderate Assist Dates: Start: 10/18/24 Expected End: 11/01/24 Description: If able, pt will be able to ambulate 5-10 feet with least restrictive device safely. Disciplines: PT Problem: Standing Balance Dates: Start: 10/18/24 Disciplines: PT Goal: Other sitting and standing balance goal (customize) Dates: Start: 10/18/24 Expected End: 11/01/24 Description: Goal Description:Improve sitting balance to good minus and standing balance if able tofair for safety of functional mobility. Disciplines: PT Problem: Strength Dates: Start: 10/18/24 Disciplines: PT Goal: Improve strength Dates: Start: 10/18/24 Expected End: 11/01/24 Description: Of extremity/ location:Improve strength to fair plus for safety of transfers Disciplines: PT Problem: Transfers Dates: Start: 10/18/24 Disciplines: PT Goal: Patient will perform transfers with Minimum Assist Dates: Start: 10/18/24 Expected End: 11/01/24 Disciplines: PT Physical Therapy Care Plan (Resolved) There are no resolved problems. Principal Problem: Small bowel obstruction (CMS-HCC) Active Problems: Seizures (CMS-HCC) Mental retardation Class 2 obesity due to excess calories with body mass index (BMI) of 36.0 to 36.9 in adult Urinary retention Hypomagnesemia * Plan of Care - Nola Solo RN - 10/17/2024 11:39 PM EDT Problem: Pain Goal: Patient goal is pain score less than 4, able to rest, and participant in treatment plan as appropriate Description: INTERVENTIONS: 1. Encourage patient or legal mortician supplies sales representative to report early pain and ask [...] per policy 9. Teach patient or legal mortician supplies sales representative interventions for comforting Outcome: Progressing Note: Pt able to report pain according to 0/10 pain scale. Medicating patient for pain per orders. Problem: Knowledge Deficit Goal: Patient/patient mortician supplies sales representative demonstrates understanding of disease process, treatment plan,medications, and discharge instructions Description: INTERVENTIONS 1. Complete learning assessment and assess knowledge base 2. Provide teaching at level of understanding 3. Provide teaching via preferred learning method(s) Outcome: Progressing Note: POC discussed with patient. Questions answered PRN. Problem: Moderate - High Risk Fall Score Description: [place] Fall Score of =/> 25 or indicated by [facility] Assessment Goal: Patient should be free from fall Description: Interventions: 1. [place] to environment 2. Hourly rounds addressing the [...] non-skid footwear 11. Teach patient and patient mortician supplies sales representative to maintain environment for safety and [...] (cane, walker) within reach 19. Request patient mortician supplies sales representative bring adaptive equipment/mobility aids from home or obtain and provide as needed 20. Consult pharmacy regarding effects of med's affecting mobility, cognition, and alternatives 21. Obtain physician order for PT if risk factors associated with mobility are present 22. Obtain physician order for OT as appropriate 23. Utilize diversional activities 24. Educate patient and patient mortician supplies sales representative how to maintain a safe environment during visitationtimes (notify nurse prior to leaving bedside) 25. Consider appropriateness of medical or non-lead medical technologist 26. Set up voiding schedule as appropriate (every 2 hours) Outcome: Progressing Note: Pt remains free from falls or accidental injury during stay. Fall prevention measures in place. Hourly rounding per RN and maintained. * Discharge Planning Note - Lavinia Holder RN - 10/17/2024 2:02 PM EDT Ongoing Assessment for Discharge Needs Reviewed discharge milestones and patient needs related to discharge plan. Current estimated discharge date of Oct 18, 2024 has been reviewed by treatment team. Ongoing Assessment for Discharge Needs Flowsheet Row Most Recent Value Services Requested Patient expects to be discharged to: Correction Does the patient wish to have family/friend/caregiver involved in their discharge planning? Yes Does the patient plan to return home to a community setting? Yes Has the family/friend/caregiver been assessed to determine their readiness, skills, capacities, andresources to provide post hospital care? Yes, Caregiver Assessment Completed Discharge Disposition Correction Correction Name [place] [address] Fax to [facility] [phone] - Victorina (nurse) Does the patient need discharge transportation arranged? Yes Transportation Arranged [place] Planning Complete Discharge Milestones Yes Respiratory Indicator Does the patient currently have home respiratory equipment? No Will the patient need home respiratory equipment upon discharge? No, it is expected that patient will NOT discharge home with respiratory DME needs CN called and left voicemail for Susan (guardian/sister). Per provider notes, patient may be discharged this weekend. CN called and spoke to [facility] supervisor smoke control. Patient may return this weekend but will need transportation back to [facility]. Nursing to call report to [facility] weekend med-pass nurse. eduardo Coronel nurse will be available (6:40am-9:00am) and (3:00pm-7:00pm) both Sunday10/18/24 and Sunday10/19/24. - Lavinia Holder RN 08/15/25 2:07 PM * Plan of Care - Elliott Cabrera RN - 10/17/2024 12:08 PM EDT Problem: Safety Goal: Patient will be injury free during hospitalization Description: INTERVENTIONS: 1. Assess patient's risk for falls and implement fall prevention plan of care per policy 2. Provide and maintain a safe environment 3. Proper use of double Identifiers 4. Medication administration using the 5 rights 5. Hand hygiene 6. Specimens are labeled at the bedside 7. Instruct patient/ patient mortician supplies sales representative about use of safety devices 8. Include patient/ patient mortician supplies sales representative in decisions related to safety Outcome: Progressing Note: Assessed patient's risk for falls and implemented fall prevention plan of care per protocol. Provided and maintained a safe environment. Used proper use of double Identifiers Problem: Potential for Compromised Skin Integrity Goal: Skin integrity is maintained or improved Description: Patient's goal is: INTERVENTIONS 1. Perform initial skin assessment on admission and as needed 2. Turn patient every 2 hours and PRN 3. Relieve pressure to bony prominences 4. Avoid shearing 5. Keep skin clean and dry 6. Alternate a full bath with partial baths for elderly 7. Apply lotion/moisturizer on skin 8. Monitor patient's hygiene practices 9. Float heels 10. Collaborate with interdisciplinary team and initiate plans and interventions as needed Outcome: Progressing Note: Performed initial skin assessment on admission and as needed. Turned patient every 2 hours and PRN.Relieved pressure to bony prominences. Avoided shearing. Kept skin clean and dry. Problem: Urinary Incontinence Goal: Perineal skin integrity [...] and interventions as needed Outcome: Progressing Note: Assessed genitourinary system, perineal skin, labs (urinalysis), and kept skin clean and dry . * Plan of Care - Valeria Maddox RN - 10/16/2024 11:20 PM EDT Problem: Gastrointestinal - Adult Goal: Maintains or returns to baseline bowel function Description: Patient's goal is: INTERVENTIONS: 1. Assess bowel function 2. Encourage oral fluids to ensure adequate hydration 3. Administer IV fluids as ordered to ensure adequate hydration 4. Administer ordered medications as needed 5. Encourage mobilization and activity 6. Nutrition consult to assist patient with appropriate food choices 7. Nasogastric tube to suction as ordered Outcome: Progressing Note: Bowel sounds present. Large bowel movement today. NGT right nares clamped greater than 12 hours. Patient tolerating well without nausea or worsening distention. Continue to provide care per plan and update physician as needed per ongoing nursing assessment. * Query Response - Sanam Guido MD - 10/16/2024 6:55 PM EDT Query Response Note CDI QUERY TEXT: Bowel Obstruction Specificity [id number] Dear Dr. Guido, (Small/Large) Bowel Obstruction is documented in the medical record. Please could you further specify location, underlying cause, and type of bowel obstruction, such as: LOCATION: - Large intestine, specify segment if known - Small intestine, specify segment if known CAUSE: - Adhesions - Hernia - Malignancy, specify malignant site and whether primary or metastatic - Postoperative, specify if due to surgical procedure or expected outcome of procedure - Other cause or condition, please specify - Unable to determine - Unknown TYPE: - Complete - Incomplete - Partial - Other, please specify - Other complication (specify) - Unable to determine - Unknown The patient's Clinical Indicators include: Bowel obstruction has been documented in the medical record X ray of the abdomen shows: 1. Fluid-filled mildly dilated proximal small bowel loops and distention of the stomach represent evolving small bowel obstruction or ileus. Consider Gastrografin challenge. FLORIAN Monet, BEATER HEAD, CDIP Clinical Documentation Integrity [employer] CDI RESPONSE TEXT: Partial small-bowel obstruction Query created by: Inna Cornelius on 10/16/2024 2:41 PM Electronically signed by: Sanam Guido MD 10/16/2024 6:52 PM * Discharge Planning Note - Gloria Rodriguez - 10/16/2024 3:33 PM EDT DISCHARGE PLANNING NOTE October 28 at 11:30am Hospital follow up with CARSON DIOR MD * Discharge Planning Note - Lavinia Holder RN - 10/16/2024 11:34 AM EDT Ongoing Assessment for Discharge Needs Reviewed discharge milestones and patient needs related to discharge plan. Current estimated discharge date of Oct 17, 2024 has been reviewed by treatment team. Ongoing Assessment for Discharge Needs Flowsheet Row Most Recent Value Services Requested Patient expects to be discharged to: Correction Does the patient wish to have family/friend/caregiver involved in their discharge planning? Yes Does the patient plan to return home to a community setting? Yes Has the family/friend/caregiver been assessed to determine their readiness, skills, capacities, andresources to provide post hospital care? Yes, Caregiver Assessment Completed Discharge Disposition Correction Correction Name [address] [address] Fax to [facility] [phone] - Victorina (nurse) Does the patient need discharge transportation arranged? Yes Transportation Arranged [place] Planning Complete Discharge Milestones Yes Respiratory Indicator Does the patient currently have home respiratory equipment? No Will the patient need home respiratory equipment upon discharge? No, it is expected that patient will NOT discharge home with respiratory DME needs Barriers to dc: small bowel follow through today [facility]. Patient will need transportation home. Patient's sister Susan is legal guardian. [facility]: [address] [address] Fax to [facility] [phone] - shelly (nurse) * Plan of Care - Kathy Pope RN - 10/16/2024 9:00 AM EDT Problem: Pain Goal: Patient goal is pain score less than 4, able to rest, and participant in treatment plan as appropriate Description: INTERVENTIONS: 1. Encourage patient or legal mortician supplies sales representative to report early pain and ask [...] per policy 9. Teach patient or legal mortician supplies sales representative interventions for comforting Outcome: Progressing Note: Pt able to report pain according to 0/10 pain scale. Medicating patient for pain per orders. Problem: Safety Goal: Patient will be injury free during hospitalization Description: INTERVENTIONS: 1. Assess patient's risk for falls and implement fall prevention plan of care per policy 2. Provide and maintain a safe environment 3. Proper use of double Identifiers 4. Medication administration using the 5 rights 5. Hand hygiene 6. Specimens are labeled at the bedside 7. Instruct patient/ patient mortician supplies sales representative about use of safety devices 8. Include patient/ patient mortician supplies sales representative in decisions related to safety Outcome: Progressing Note: Safety measures and hourly rounding in place. Pt remains free of falls and injury at this time. Will continue to monitor. Problem: Knowledge Deficit Goal: Patient/patient mortician supplies sales representative demonstrates understanding of disease process, treatment plan,medications, and discharge instructions Description: INTERVENTIONS 1. Complete learning assessment and assess knowledge base 2. Provide teaching at level of understanding 3. Provide teaching via preferred learning method(s) Note: POC discussed with patient. Questions answered PRN. Problem: Discharge Planning Goal: Discharge to post-acute [...] Arrange for needed discharge transportation as appropriate Note: Pt will be discharged to post acute care, other facility or home with appropriate resources. * Plan of Care - Nola Solo RN - 10/15/2024 11:35 PM EDT Problem: Safety Goal: Patient will be injury free during hospitalization Description: INTERVENTIONS: 1. Assess patient's risk for falls and implement fall prevention plan of care per policy 2. Provide and maintain a safe environment 3. Proper use of double Identifiers 4. Medication administration using the 5 rights 5. Hand hygiene 6. Specimens are labeled at the bedside 7. Instruct patient/ patient mortician supplies sales representative about use of safety devices 8. Include patient/ patient mortician supplies sales representative in decisions related to safety Outcome: Progressing Note: Assess patient's risk for falls and implement fall prevention plan of care per policy. Provide and maintain a safe environment. Proper use of double Identifiers. Medication administration usingthe 5 rights. Hand hygiene Problem: Infection Goal: Absence of infection during hospitalization Description: INTERVENTIONS 1. Assess and monitor for signs and symptoms of infection. 2. Monitor lab/diagnostic results. 3. Monitor all insertion sites i.e., indwelling lines, tubes and drains. 4. Monitor endotracheal (as able) and nasal secretions for changes in amount and color. 5. Administer medications as ordered. 6. Instruct and encourage patient and family to use good hand hygiene technique. 7. Identify and instruct patient/patient mortician supplies sales representative in use of appropriate isolation precautionsfor identified infection/symptoms. 8. Provide and discuss with patient/patient mortician supplies sales representative on educational MDRO sheet. 9. Encourage and monitor nutritional status daily and consult movie shot cameraman if indicated. 10. Implement neutropenic guidelines as needed. Outcome: Progressing Note: Assess and monitor for signs and symptoms of infection. Monitor lab/diagnostic results. Monitor all insertion sites i.e., indwelling lines, tubes and drains. Monitor endotracheal (as able) and nasal secretions for changes in amount and color. Administer medications as ordered. Problem: Moderate - High Risk Fall Score Description: [place] Fall Score of =/> 25 or indicated by [facility] Assessment Goal: Patient should be free from fall Description: Interventions: 1. [place] to environment 2. Hourly rounds addressing the [...] non-skid footwear 11. Teach patient and patient mortician supplies sales representative to maintain environment for safety and [...] (cane, walker) within reach 19. Request patient mortician supplies sales representative bring adaptive equipment/mobility aids from home or obtain and provide as needed 20. Consult pharmacy regarding effects of med's affecting mobility, cognition, and alternatives 21. Obtain physician order for PT if risk factors associated with mobility are present 22. Obtain physician order for OT as appropriate 23. Utilize diversional activities 24. Educate patient and patient mortician supplies sales representative how to maintain a safe environment during visitationtimes (notify nurse prior to leaving bedside) 25. Consider appropriateness of medical or non-lead medical technologist 26. Set up voiding schedule as appropriate (every 2 hours) Outcome: Progressing Note: Hourly rounds addressing the 4 P's (Pain, Positioning, Possessions, Potty). Clear area of hazards (spills, clutter, electrical cords, unnecessary equipment). Maintain bed in lowest position * Plan of Care - Nola Otto RN - 10/15/2024 3:30 PM EDT Problem: Pain Goal: Patient goal is pain score less than 4, able to rest, and participant in treatment plan as appropriate Description: INTERVENTIONS: 1. Encourage patient or legal mortician supplies sales representative to report early pain and ask [...] per policy 9. Teach patient or legal mortician supplies sales representative interventions for comforting Outcome: Progressing Note: Pt able to report pain according to 0/10 pain scale. Medicating patient for pain per orders. Problem: Safety Goal: Patient will be injury free during hospitalization Description: INTERVENTIONS: 1. Assess patient's risk for falls and implement fall prevention plan of care per policy 2. Provide and maintain a safe environment 3. Proper use of double Identifiers 4. Medication administration using the 5 rights 5. Hand hygiene 6. Specimens are labeled at the bedside 7. Instruct patient/ patient mortician supplies sales representative about use of safety devices 8. Include patient/ patient mortician supplies sales representative in decisions related to safety Outcome: Progressing Note: Pt's risk for falls assessed and fall prevention implemented as needed, safe environment provided and maintained, hand hygiene completed. Problem: Moderate - High Risk Fall Score Description: [place] Fall Score of =/> 25 or indicated by [facility] Assessment Goal: Patient should be free from fall Description: Interventions: 1. [place] to environment 2. Hourly rounds addressing the [...] non-skid footwear 11. Teach patient and patient mortician supplies sales representative to maintain environment for safety and [...] (cane, walker) within reach 19. Request patient mortician supplies sales representative bring adaptive equipment/mobility aids from home or obtain and provide as needed 20. Consult pharmacy regarding effects of med's affecting mobility, cognition, and alternatives 21. Obtain physician order for PT if risk factors associated with mobility are present 22. Obtain physician order for OT as appropriate 23. Utilize diversional activities 24. Educate patient and patient mortician supplies sales representative how to maintain a safe environment during visitationtimes (notify nurse prior to leaving bedside) 25. Consider appropriateness of medical or non-lead medical technologist 26. Set up voiding schedule as appropriate (every 2 hours) Outcome: Progressing Note: Pt remains free from falls or accidental injury during stay. Fall prevention measures in place. Hourly rounding per RN and maintained. Problem: Potential for Compromised Skin Integrity Goal: Skin integrity is maintained or improved Description: Patient's goal is: INTERVENTIONS 1. Perform initial skin assessment on admission and as needed 2. Turn patient every 2 hours and PRN 3. Relieve pressure to bony prominences 4. Avoid shearing 5. Keep skin clean and dry 6. Alternate a full bath with partial baths for elderly 7. Apply lotion/moisturizer on skin 8. Monitor patient's hygiene practices 9. Float heels 10. Collaborate with interdisciplinary team and initiate plans and interventions as needed Outcome: Progressing Note: Patient being turned Q2. Skin assesment per protocol. * Discharge Planning Note - Vioelt Bush - 10/15/2024 3:07 PM EDT DISCHARGE PLANNING NOTE 2nd IMM letter sent via certified mail to patient's sister/guardian Susan Smith at [address] [facility] [address] [place] [address] * Discharge Planning Note - Lavinia Holder RN - 10/15/2024 2:01 PM EDT 10/15/24 6446 Patient Information Initial Pre-Hospitalization Assessment Completed? Completed Primary Caregiver Family (Susan (guardian/sister)) Discharge Planning Living Arrangements [facility] Type of Residence [facility] Name [address] [address] [phone] Victorina (nurse) Home Care Services No Does The Patient Have Existing Home DME? Yes Existing Home DME Options Wheelchair Will the patient need DME at discharge? No, the patient has no home DME needs currently Income Information Income Information Disability IP Hunger/Food Insecurity Screening Within the past 12 months we worried whether our food would run out before we got money to buy more. Never True Within the past 12 months the food we bought just didn't last and we didn't have money to get more.Never True Hunger Screening Complete? Yes Pt. Eligible for Food / Voucher No If Eligible: Received Food Box Not Offered to Patient Warm Handoff Complete Caregiver/Family Member Caregiver/Family Member Susan guardian/sister Caregiver/Family Member Involved with Current Plan of Care Yes Caregiver/Family Member in Agreement with Current Plan of Care Yes Patient/Caregiver Goals Patient/Caregiver Goals (return to [facility]) Services Requested Patient expects to be discharged to: [facility] Does the patient wish to have family/friend/caregiver involved in their discharge planning? Yes Does the patient plan to return home to a community setting? Yes Has the family/friend/caregiver been assessed to determine their readiness, skills, capacities, andresources to provide post hospital care? Yes, Caregiver Assessment Completed Discharge Disposition [facility] Name [address] [address] Fax to [facility] [phone] - Victorina (nurse) Does the patient need discharge transportation arranged? Yes Transportation Arranged [place] Planning Complete Discharge Milestones Yes DISCHARGE PLANNING NOTE CN called and completed assessment with Susan, guardian/sister. Georgie, patient's mother was removed from emergency contact list. Susan notified CN that patient's mother is . [facility] prior to [facility]. Pt has been living in [facility] for estimat. 7 years. Susan provided CN with [employer] nurse's contact information. Patient will require transportation home. CN instructed Susan to call with any further needs/concerns. Plan is for [facility]. Discharge plan: Will need transport home. [address] [address] Fax to [facility] [phone] - Victorina (nurse) * Plan of Care - Dimas Jackman [facility] - 10/15/2024 1:59 PM EDT Problem: Medication Description: If medication is necessary, use low-risk medication that does not interfere with what matters to the older adult patient, mobility, or mentation across settings of care. Goal: Patient will be screened for high-risk medications once per stay Description: Interventions: 1. Pharmacist to perform medication review to screen for high-risk medications 2. Pharmacist to identify high-risk medications in the Plan of Care note 3. Pharmacist to make recommendations for follow-up in the Plan of Care note, if warranted Note: Medications individually and in combination may interfere with What Matters, Mentation, and safe Mobility because of the increased risk of confusion, delirium, unsteadiness and falls. Profile review indicates this patients has active orders for benzodiazepines (lorazepam). Chart review also ows no change in renal function. * Plan of Care - Dimas Jackman RPH - 10/15/2024 1:57 PM EDT Problem: Medication Description: If medication is necessary, use low-risk medication that does not interfere with what matters to the older adult patient, mobility, or mentation across settings of care. Goal: Patient will be screened for high-risk medications once per stay Description: Interventions: 1. Pharmacist to perform medication review to screen for high-risk medications 2. Pharmacist to identify high-risk medications in the Plan of Care note 3. Pharmacist to make recommendations for follow-up in the Plan of Care note, if warranted Note: Medications individually and in combination may interfere with What Matters, Mentation, and safe Mobility because of the increased risk of confusion, delirium, unsteadiness and falls. Profile review indicates this patients has active orders for benzodiazepines (lorazepam). Chart review also ows no change in renal function. * Plan of Care - Andrey Paiz RN - 10/14/2024 9:27 PM EDT Problem: Pain Goal: Patient goal is pain score less than 4, able to rest, and participant in treatment plan as appropriate Description: INTERVENTIONS: 1. Encourage patient or legal mortician supplies sales representative to report early pain and ask [...] per policy 9. Teach patient or legal mortician supplies sales representative interventions for comforting Outcome: Progressing Note: Pt states pain is controlled. Will continue to assess. Problem: Safety Goal: Patient will be injury free during hospitalization Description: INTERVENTIONS: 1. Assess patient's risk for falls and implement fall prevention plan of care per policy 2. Provide and maintain a safe environment 3. Proper use of double Identifiers 4. Medication administration using the 5 rights 5. Hand hygiene 6. Specimens are labeled at the bedside 7. Instruct patient/ patient mortician supplies sales representative about use of safety devices 8. Include patient/ patient mortician supplies sales representative in decisions related to safety Outcome: Progressing Note: Pt free from falls. Safety maintained. Problem: Infection Goal: Absence of infection during hospitalization Description: INTERVENTIONS 1. Assess and monitor for signs and symptoms of infection. 2. Monitor lab/diagnostic results. 3. Monitor all insertion sites i.e., indwelling lines, tubes and drains. 4. Monitor endotracheal (as able) and nasal secretions for changes in amount and color. 5. Administer medications as ordered. 6. Instruct and encourage patient and family to use good hand hygiene technique. 7. Identify and instruct patient/patient mortician supplies sales representative in use of appropriate isolation precautionsfor identified infection/symptoms. 8. Provide and discuss with patient/patient mortician supplies sales representative on educational MDRO sheet. 9. Encourage and monitor nutritional status daily and consult movie shot cameraman if indicated. 10. Implement neutropenic guidelines as needed. Outcome: Progressing Note: Pt free from s/s of infection. Will continue to monitor. Problem: Knowledge Deficit Goal: Patient/patient mortician supplies sales representative demonstrates understanding of disease process, treatment plan,medications, and discharge instructions Description: INTERVENTIONS 1. Complete learning assessment and assess knowledge base 2. Provide teaching at level of understanding 3. Provide teaching via preferred learning method(s) Outcome: Progressing Note: Plan of care reviewed with patient. Questions answered. Will continue to assess. * Plan of Care - Katie Amato RN - 10/14/2024 6:34 PM EDT Problem: Safety Goal: Patient will be injury free during hospitalization Description: INTERVENTIONS: 1. Assess patient's risk for falls and implement fall prevention plan of care per policy 2. Provide and maintain a safe environment 3. Proper use of double Identifiers 4. Medication administration using the 5 rights 5. Hand hygiene 6. Specimens are labeled at the bedside 7. Instruct patient/ patient mortician supplies sales representative about use of safety devices 8. Include patient/ patient mortician supplies sales representative in decisions related to safety Outcome: Progressing Note: Patient safety maintained during shift with use of 5 rights, patient and staff using hygiene,patient environment free of harm and debrie. Will continue to monitor during shift. Problem: Knowledge Deficit Goal: Patient/patient mortician supplies sales representative demonstrates understanding of disease process, treatment plan,medications, and discharge instructions Description: INTERVENTIONS 1. Complete learning assessment and assess knowledge base 2. Provide teaching at level of understanding 3. Provide teaching via preferred learning method(s) Outcome: Progressing Note: Patient updated on POC he verbalizes understanding and voices no concerns at this time. Will continue to update and assess patient throughout shift for needs. Problem: Moderate - High Risk Fall Score Description: [place] Fall Score of =/> 25 or indicated by [facility] Assessment Goal: Patient should be free from fall Description: Interventions: 1. [place] to environment 2. Hourly rounds addressing the [...] non-skid footwear 11. Teach patient and patient mortician supplies sales representative to maintain environment for safety and [...] (cane, walker) within reach 19. Request patient mortician supplies sales representative bring adaptive equipment/mobility aids from home or obtain and provide as needed 20. Consult pharmacy regarding effects of med's affecting mobility, cognition, and alternatives 21. Obtain physician order for PT if risk factors associated with mobility are present 22. Obtain physician order for OT as appropriate 23. Utilize diversional activities 24. Educate patient and patient mortician supplies sales representative how to maintain a safe environment during visitationtimes (notify nurse prior to leaving bedside) 25. Consider appropriateness of medical or non-lead medical technologist 26. Set up voiding schedule as appropriate (every 2 hours) Outcome: Progressing Note: Patient remains free from falls during shift, patient transfers via maxi chloe, patients room is free of clutter and debrie, patients bed remains locked and in lowest position, hourly rounding continues, patient uses call light to notify staff of needs, appropriate safe patient handling used during shift. Will continue to monitor during shift. [facility] Plan of care note * Plan of Care - Nola Solo RN - 10/18/2024 7:23 PM EDT Problem: Pain Goal: Patient goal is pain score less than 4, able to rest, and participant in treatment plan as appropriate Description: INTERVENTIONS: 1. Encourage patient or legal mortician supplies sales representative to report early pain and ask [...] per policy 9. Teach patient or legal mortician supplies sales representative interventions for comforting Outcome: Progressing Note: Pt able to report pain according to 0/10 pain scale. Medicating patient for pain per orders. Problem: Safety Goal: Patient will be injury free during hospitalization Description: INTERVENTIONS: 1. Assess patient's risk for falls and implement fall prevention plan of care per policy 2. Provide and maintain a safe environment 3. Proper use of double Identifiers 4. Medication administration using the 5 rights 5. Hand hygiene 6. Specimens are labeled at the bedside 7. Instruct patient/ patient mortician supplies sales representative about use of safety devices 8. Include patient/ patient mortician supplies sales representative in decisions related to safety Outcome: Progressing Note: Pt's risk for falls assessed and fall prevention implemented as needed, safe environment provided and maintained, hand hygiene completed. Problem: Infection Goal: Absence of infection during hospitalization Description: INTERVENTIONS 1. Assess and monitor for signs and symptoms of infection. 2. Monitor lab/diagnostic results. 3. Monitor all insertion sites i.e., indwelling lines, tubes and drains. 4. Monitor endotracheal (as able) and nasal secretions for changes in amount and color. 5. Administer medications as ordered. 6. Instruct and encourage patient and family to use good hand hygiene technique. 7. Identify and instruct patient/patient mortician supplies sales representative in use of appropriate isolation precautionsfor identified infection/symptoms. 8. Provide and discuss with patient/patient mortician supplies sales representative on educational MDRO sheet. 9. Encourage and monitor nutritional status daily and consult movie shot cameraman if indicated. 10. Implement neutropenic guidelines as needed. Outcome: Progressing Note: Patient VS WNL, remains afebrile for shift. Continue to monitor. [facility] History of Present illness Narrative* Sanam Guido MD - 10/18/2024 10:43 AM EDT Images from the original note were not included. [facility] INTERNAL MEDICINE [facility] [id number] Hospital Medicine Progress Note Patient: Amol Taylor Date of : 1955 Room: [facility]/ PCP: CARSON DIOR MD Admission date: 10/14/2024 11:17 AM Encounter date: 10/18/24 Hospital Day: 5 SUBJECTIVE Interval History: Status: stable. General surgery, advanced to FLD. Review of Systems Unable to perform ROS: Other OBJECTIVE BP (!) 131/91 Comment: BP taken twice. Pt. talking while getting BP. RN notified. Pulse 75 Temp36.6 C (97.9 F) (Axillary) Resp 18 Ht 167.6 cm (5' 5.98 ) Wt 98.2 kg (216 lb 9.6 oz) SpO2 99% BMI 34.98 kg/m Temp: [36.4 C (97.5 F)-37 C (98.6 F)] 36.6 C (97.9 F) Pulse: [55-82] 75 Resp: [18-22] 18 BP: (103-155)/(70-100) 131/91 FiO2 (%): [21 %] 21 % SpO2: [92 %-99 %] 99 % O2 Device: None (Room air) O2 Flow Rate (L/min): [0 L/min] 0 L/min Intake/Output Summary (Last 24 hours) at 10/18/2024 1043 Last data filed at 10/18/2024 0938 Gross per 24 hour Intake 1385.04 ml Output 1725 ml Net -339.96 ml Physical Exam Constitutional: General: He is not in acute distress. Cardiovascular: Rate and Rhythm: Normal rate and regular rhythm. Heart sounds: Heart sounds are distant. Comments: Mild generalized anasarca Pulmonary: Effort: Pulmonary effort is normal. Breath sounds: Decreased breath sounds and rhonchi present. No wheezing or rales. Abdominal: General: Abdomen is flat. Palpations: Abdomen is soft. Tenderness: There is no abdominal tenderness. Musculoskeletal: Right lower leg: No edema. Left lower leg: No edema. Skin: General: Skin is warm and dry. Capillary Refill: Capillary refill takes less than 2 seconds. Coloration: Skin is pale. Findings: No rash. Neurological: General: No focal deficit present. Mental Status: Mental status is at baseline. Psychiatric: Behavior: Behavior is cooperative. Medications Scheduled: enoxaparin (LOVENOX) injection, 40 mg, subcutaneous, Daily finasteride, 5 mg, oral, Daily lacosamide, 150 mg, oral, BID lamoTRIgine, 400 mg, oral, Daily lamoTRIgine, 600 mg, oral, Nightly latanoprost, 1 drop, both eyes, Nightly levETIRAcetam, 1,500 mg, oral, Daily levETIRAcetam, 2,000 mg, oral, HS levoFLOXacin, 750 mg, intravenous, Q24H magnesium oxide, 400 mg, oral, Daily metroNIDAZOLE, 500 mg, intravenous, Q12H pantoprazole, 40 mg, oral, Daily primidone, 250 mg, oral, Daily primidone, 375 mg, oral, Nightly Consult PICC nurse - Midline, , , Once AND sodium chloride, 20 mL, intravenous, Q12H AND sodium chloride, 20 mL, intravenous, PRN AND sodium chloride, 40 mL, intravenous, PRN tamsulosin, 0.4 mg, oral, BID Infusions: dextrose 5 % and sodium chloride 0.45 % with KCl 20 mEq/L, 50 mL/hr, Last Rate: 50 mL/hr (10/18/24 0938) As Needed: acetaminophen albuterol dextrose dextrose 50 % in water (D50W) glucagon (human recombinant) LORazepam magnesium sulfate magnesium sulfate ondansetron potassium chloride OR potassium chloride OR potassium chloride IV (Adult) sennosides-docusate sodium sodium chloride Consult PICC nurse - Midline AND sodium chloride AND sodium chloride AND sodium chloride sodium chloride sodium chloride sodium chloride Allergies: Penicillins, Sodium hypochlorite, Bleach (sodium hypochlorite), Tree nuts, and Clindamycin Code Status: Full Code Labs Recent Results (from the past 24 hours) Magnesium Collection Time: 10/17/24 4:04 PM Result Value Ref Range MAGNESIUM 1.8 1.8 - 2.6 mg/dL Potassium Collection Time: 10/17/24 4:04 PM Result Value Ref Range POTASSIUM 3.7 3.5 - 5.0 mmol/L Comprehensive metabolic panel Collection Time: 10/18/24 4:29 AM Result Value Ref Range SODIUM 139 134 - 146 mmol/L POTASSIUM 3.9 3.5 - 5.0 mmol/L CHLORIDE 107 98 - 109 mmol/L CARBON DIOXIDE 21 (L) 22 - 32 mmol/L ANION GAP 11 5 - 15 mmol/L BLOOD UREA NITROGEN 9 5 - 27 mg/dL CREATININE 0.81 0.70 - 1.20 mg/dL GLUCOSE 106 (H) 65 - 99 mg/dL CALCIUM 8.5 8.5 - 10.5 mg/dL TOTAL PROTEIN 7.0 6.0 - 8.0 g/dL ALBUMIN 3.4 3.2 - 5.3 g/dL ALKALINE PHOSPHATASE 121 39 - 130 U/L AST 17 <=41 U/L ALT 18 <=40 U/L BILIRUBIN,TOTAL 0.5 0.3 - 1.2 mg/dL EGFR Non-Race Dependent >90 >=60 ml/min/1.73sq.m Magnesium Collection Time: 10/18/24 4:29 AM Result Value Ref Range MAGNESIUM 2.1 1.8 - 2.6 mg/dL CBC auto differential Collection Time: 10/18/24 4:29 AM Result Value Ref Range WBC 7.2 4 - 11 x10E9/L RBC Count 4.15 4.1 - 5.7 X10E12/L Hemoglobin 13.3 13 - 17 g/dL Hematocrit 38.5 (L) 39 - 50 % MCV 93 80 - 100 fL MCH 31.9 27 - 34 pg MCHC 34.4 32 - 36 g/dL RDW 12.6 11.5 - 15 % Platelet Count 220 150 - 450 X10E9/L MPV 7.5 7 - 12 fL Neutrophils % 68.8 % Lymphocytes % 20.2 % Monocytes % 8.8 % Eosinophils % 1.7 % Basophils % 0.5 % Neutrophils Absolute (A) 5.0 1.5 - 6.6 10*3/uL Lymphocytes Absolute 1.5 1.0 - 3.5 10*3/uL Monocytes Absolute 0.6 0.0 - 0.9 10*3/uL Eosinophils Absolute 0.1 0.0 - 0.4 10*3/uL Basophils Absolute 0.0 0.0 - 0.2 10*3/uL Differential Type AUTOMATED DIFFERENTIAL Radiology No results found. HOSPITAL PROBLEM LIST Principal Problem: Small bowel obstruction ([facility]) Active Problems: Seizures ([facility]) Mental retardation Class 2 obesity due to excess calories with body mass index (BMI) of 36.0 to 36.9 in adult Urinary retention Hypomagnesemia ASSESSMENT & PLAN SBO, clinically improving, general surgery following, FLD, NG tube clamped. Continue levofloxacin and metronidazole, discuss deescalating with attending. Encourage activity and bronchopulmonary hygiene. Discontinue indwelling urinary catheter. DC planning: [facility] pending above. Medically Ready for Discharge: Anticipated Tomorrow GENEVA FLOWERS APRN-OTONIEL 10/18/2024 10:43 AM [facility] 7AM-7PM & 7PM-7AM: EpicChat or page through On-Call Finder. Geneva Flowers APRN-OTONIEL 10/18/24 1046 Physician Attestation I, Sanam Guido MD, personally performed a face to face diagnostic evaluation on this patient. I have reviewed the note authored by the advance practice provider including history, review of systems,physical examination,medical decision making and agree with the assessment and plan as written. I have seen and evaluated the patient, I have repeated the gee portions of the physical exam and concur with the MEMO findings. I have reviewed all laboratory findings and imaging reports/films. I agree with the plan as noted. Patient has small-bowel follow-through report is unremarkable on full liquid diet on IV Levaquin IVFlagyl. General surgery input noted * Irwin Ge, DO - 10/18/2024 6:10 AM EDT Daily Progress Note NAME: Amol Taylor : 1955 Principal Problem: Small bowel obstruction (CMS-HCC) Active Problems: Seizures ([facility]-HCC) Mental retardation Class 2 obesity due to excess calories with body mass index (BMI) of 36.0 to 36.9 in adult Urinary retention Hypomagnesemia LOS: 4 days Subjective No acute events overnight. Difficult to tell if the patient is doing any better because he is a poor historian. According to nursing he has only had a smear out. No more nausea or vomiting and NG tube has remained clamped. He tolerated clear liquids Small-bowel series showed no evidence of obstruction. Vital signs in last 24 hours: Temp: [36.4 C (97.5 F)-37 C (98.6 F)] 36.4 C (97.6 F) Pulse: [55-82] 76 Resp: [18-22] 18 BP: (103-155)/(70-100) 116/88 FiO2 (%): [21 %] 21 % SpO2: [92 %-98 %] 96 % O2 Device: None (Room air) O2 Flow Rate (L/min): [0 L/min] 0 L/min Intake/Output last 3 shifts: I/O last 3 completed shifts: In: 3270 [P.O.:480; I.V.:1572.2; NG/GT:120; IV Piggyback:1097.7] Out: 2124 [Urine:1925; Emesis/NG output:200] Intake/Output this shift: I/O this shift: In: - Out: 800 [Urine:800] Physical Exam: Constitutional: He is oriented to person, place, and time. Vital signs are normal. He appears well-developed and well-nourished. Abdomen soft obese nontender Neurological: He is alert and oriented to person, place, and time. Skin: Skin is warm, dry and intact. LABS Results: Lab Results Component Value Date WBC 7.2 10/18/2024 HGB 13.3 10/18/2024 HCT 38.5 (L) 10/18/2024 MCV 93 10/18/2024 PLT 220 10/18/2024 Lab Results Component Value Date GLU 106 (H) 10/18/2024 CALCIUM 8.5 10/18/2024 SODIUM 139 10/18/2024 K 3.9 10/18/2024 CO2 21 (L) 10/18/2024 BUN 9 10/18/2024 CREATININE 0.81 10/18/2024 Impression: 1. SBO resolving Plan: Advanced to full liquids and encourage activity with PT if not already ordered. - Irwin Ge DO 10/18/24 6:11 AM * Sanam Guido MD - 10/17/2024 12:17 PM EDT Images from the original note were not included. [facility] INTERNAL MEDICINE [facility] [address] [facility] [id number] Hospital Medicine Progress Note Patient: Amol Taylor Date of : 1955 Room: [facility] PCP: CARSON DIOR MD Admission date: 10/14/2024 11:17 AM Encounter date: 10/17/24 Hospital Day: 4 SUBJECTIVE Interval History: Status: Improved. No overnight events. Two stools overnight diarrhea watery. Patient denies anything when asked. NG tube clamped no nausea/vomiting overnight Review of Systems Constitutional: Positive for decreased appetite and malaise/fatigue. Negative for chills, diaphoresis and fever. HENT: Negative for congestion. Cardiovascular: Negative for chest pain, dyspnea on exertion, leg swelling and palpitations. Respiratory: Negative for cough, shortness of breath, sputum production and wheezing. Hematologic/Lymphatic: Does not bruise/bleed easily. Skin: Negative for dry skin and poor wound healing. Musculoskeletal: Negative for arthritis, back pain and falls. Gastrointestinal: Negative for bloating, abdominal pain, dysphagia, nausea and vomiting. Genitourinary: Negative for bladder incontinence. Neurological: Negative for excessive daytime sleepiness, dizziness, paresthesias, tremors and weakness. Psychiatric/Behavioral: Negative for altered mental status and memory loss. OBJECTIVE BP (!) 103/91 Pulse 55 Temp 36.9 C (98.4 F) (Oral) Resp 18 Ht 167.6 cm (5' 5.98 ) Wt 100.2 kg (221 lb) SpO2 92% BMI 35.69 kg/m Temp: [36.4 C (97.6 F)-37.1 C (98.7 F)] 36.9 C (98.4 F) Pulse: [55-71] 55 Resp: [14-18] 18 BP: (103-147)/(72-91) 103/91 SpO2: [91 %-100 %] 92 % O2 Device: None (Room air) Intake/Output Summary (Last 24 hours) at 10/17/2024 1355 Last data filed at 10/17/2024 0408 Gross per 24 hour Intake 1990.81 ml Output 1000 ml Net 990.81 ml Physical Exam Vitals (on Ra) and nursing note reviewed. Constitutional: General: He is not in acute distress. Appearance: Normal appearance. He is obese. He is ill-appearing. He is not toxic-appearing or diaphoretic. HENT: Head: Normocephalic and atraumatic. Nose: Nose normal. Mouth/Throat: Mouth: Mucous membranes are moist. Eyes: Pupils: Pupils are equal, round, and reactive to light. Cardiovascular: Rate and Rhythm: Regular rhythm. Bradycardia present. Pulses: Normal pulses. Heart sounds: Normal heart sounds. Comments: Sinus rhythm heart rate 55 Pulmonary: Effort: Pulmonary effort is normal. No respiratory distress. Breath sounds: No wheezing, rhonchi or rales. Abdominal: General: Bowel sounds are normal. There is no distension. Palpations: Abdomen is soft. Tenderness: There is no abdominal tenderness. Comments: NG clamped Belly soft Hypoactive bowel sounds Musculoskeletal: Cervical back: Normal range of motion and neck supple. Right lower leg: No edema. Left lower leg: No edema. Comments: Small hands able to grasp and follow all commands Moves all extremities Skin: General: Skin is warm and dry. Capillary Refill: Capillary refill takes less than 2 seconds. Neurological: Mental Status: He is alert. Mental status is at baseline. He is disoriented. Sensory: No sensory deficit. Motor: Weakness (generalized) present. Gait: Gait normal. Comments: At baseline Follows simple commands Psychiatric: Mood and Affect: Mood normal. Medications Scheduled: enoxaparin (LOVENOX) injection, 40 mg, subcutaneous, Daily famotidine, 20 mg, intravenous, Q12H DAR lacosamide, 150 mg, oral, BID [START ON 10/18/2024] lamoTRIgine, 400 mg, oral, Daily lamoTRIgine, 600 mg, oral, Nightly latanoprost, 1 drop, both eyes, Nightly [START ON 10/18/2024] levETIRAcetam, 1,500 mg, oral, Daily levETIRAcetam, 2,000 mg, oral, HS levoFLOXacin, 750 mg, intravenous, Q24H magnesium oxide, 400 mg, oral, Daily metroNIDAZOLE, 500 mg, intravenous, Q12H Consult PICC nurse - Midline, , , Once AND sodium chloride, 20 mL, intravenous, Q12H AND sodium chloride, 20 mL, intravenous, PRN AND sodium chloride, 40 mL, intravenous, PRN Infusions: dextrose 5 % and sodium chloride 0.45 % with KCl 20 mEq/L, 75 mL/hr, Last Rate: 75 mL/hr (10/17/24 0800) As Needed: acetaminophen albuterol dextrose dextrose 50 % in water (D50W) glucagon (human recombinant) LORazepam magnesium sulfate magnesium sulfate ondansetron potassium chloride OR potassium chloride OR potassium chloride IV (Adult) sennosides-docusate sodium sodium chloride Consult PICC nurse - Midline AND sodium chloride AND sodium chloride AND sodium chloride sodium chloride sodium chloride sodium chloride Allergies: Penicillins, Sodium hypochlorite, Bleach (sodium hypochlorite), Tree nuts, and Clindamycin Labs Recent Results (from the past 24 hours) Comprehensive metabolic panel Collection Time: 10/17/24 4:06 AM Result Value Ref Range SODIUM 140 134 - 146 mmol/L POTASSIUM 3.3 (L) 3.5 - 5.0 mmol/L CHLORIDE 109 98 - 109 mmol/L CARBON DIOXIDE 23 22 - 32 mmol/L ANION GAP 8 5 - 15 mmol/L BLOOD UREA NITROGEN 16 5 - 27 mg/dL CREATININE 0.77 0.70 - 1.20 mg/dL GLUCOSE 96 65 - 99 mg/dL CALCIUM 8.2 (L) 8.5 - 10.5 mg/dL TOTAL PROTEIN 6.0 6.0 - 8.0 g/dL ALBUMIN 3.0 (L) 3.2 - 5.3 g/dL ALKALINE PHOSPHATASE 109 39 - 130 U/L AST 15 <=41 U/L ALT 16 <=40 U/L BILIRUBIN,TOTAL 0.7 0.3 - 1.2 mg/dL EGFR Non-Race Dependent >90 >=60 ml/min/1.73sq.m Magnesium Collection Time: 10/17/24 4:06 AM Result Value Ref Range MAGNESIUM 1.4 (L) 1.8 - 2.6 mg/dL CBC auto differential Collection Time: 10/17/24 4:06 AM Result Value Ref Range WBC 7.4 4 - 11 x10E9/L RBC Count 3.47 (L) 4.1 - 5.7 X10E12/L Hemoglobin 11.2 (L) 13 - 17 g/dL Hematocrit 32.3 (L) 39 - 50 % MCV 93 80 - 100 fL MCH 32.3 27 - 34 pg MCHC 34.7 32 - 36 g/dL RDW 12.7 11.5 - 15 % Platelet Count 210 150 - 450 X10E9/L MPV 7.1 7 - 12 fL Neutrophils % 71.8 % Lymphocytes % 17.5 % Monocytes % 7.7 % Eosinophils % 2.7 % Basophils % 0.3 % Neutrophils Absolute (A) 5.3 1.5 - 6.6 10*3/uL Lymphocytes Absolute 1.3 1.0 - 3.5 10*3/uL Monocytes Absolute 0.6 0.0 - 0.9 10*3/uL Eosinophils Absolute 0.2 0.0 - 0.4 10*3/uL Basophils Absolute 0.0 0.0 - 0.2 10*3/uL Differential Type AUTOMATED DIFFERENTIAL Radiology X-ray chest 2 views Result Date: 10/15/2024 Narrative: Chest 2 views History: Coarse rhonchi throughout all lung matta rule out pneumonia versus atelectasis Comparison: 10/11/2024 Findings: Chest 2 views. Stable cardiomegaly mediastinal silhouette. This patient rotation towards the left compromising assessment. There is no pneumothorax. Thereis bilateral lower lung atelectasis. Impression: Stable appearance of the chest and likely bilateral lower lung atelectasis. Finalized by Irwin Rivera MD on 10/15/2024 7:45 AM X-ray abdomen ap 1 view Result Date: 10/14/2024 Narrative: History: NG placement EXAM: Abdomen supine COMPARISON: CT abdomen pelvis IMPRESSION: NG tube tip in gastric fundus, in satisfactory position. Finalized by Lizz Montalvo MD on 10/14/2024 6:[address] abdomen and pelvis with contrast Result Date: 10/14/2024 Narrative: STUDY: ABDOMEN AND PELVIS CT WITH CONTRAST CLINICAL HISTORY: Abdominal pain. Small bowelobstruction. Questionable small bowel obstruction COMPARISON: 04/07/2023 TECHNIQUE: CT abdomen and pelvis was performed utilizing 5 mm axial reconstructions following the uneventful administration of 100 cc Omnipaque 300 nonionic intravenous contrast. Coronal and sagittal reformatted images as well as delayed excretory phase images were obtained and reviewed. Automated exposure control was utilized. FINDINGS: Abdomen: No pleural or pericardial effusion and lung bases. Dependent changes and atelectasis in both lungs. Severe distention of the stomach. There is fluid-filled dilated small bowel loops with relatively decompressed distal small bowel loops could represent evolving ileus or obstruction. There is no evidence of free intraperitoneal gas. The liver, adrenal glands, pancreas and spleenappear grossly unremarkable. There is a calcified subcapsular left renal lesion stable likely representing sequela of prior subcapsular hematoma. No renal collecting system dilatation. No enlarged mesenteric or retroperitoneal lymph nodes. Pelvis: No free pelvic fluid. No enlarged pelvic lymph nodes. Urinary bladder is grossly unremarkable. Degenerative change of the thoracolumbar spine. No verteb ral body height loss. IMPRESSION: 1. Fluid-filled mildly dilated proximal small bowel loops and distention of the stomach represent evolving small bowel obstruction or ileus. Consider Gastrografin challenge. All CT scans at this facility use dose modulation, iterative reconstruction, and/or weight based dosing when appropriate to reduce radiation dose to as low as reasonably achievable. Finalized by Irwin Rivera MD on 10/14/2024 2:19 PM Fluoroscopy small bowel Result Date: 10/11/2024 Narrative: FL SMALL BOWEL HISTORY: Small bowel obstruction, abdominal distention COMPARISON: Same day abdominal radiograph FINDINGS: Images: 3, same day abdominal radiograph was used as contract modeler imaging. Para Educator view shows a few gas- filled loops of distended small bowel as well as gas within the large bowel and rectum. Enteric tube visualized with side-port terminating over the expected location of the stomach. Linear calcifications overlying the left renal fossa which correspond to peripherally calcified renal cyst visualized on CT abdomen and pelvis dated 04/07/2023. Suture material visualized in the left lower quadrant. Normal progression of enteric contrast in the small bowel. No significantlydilated loops of small bowel. Enteric contrast visualized to reach the cecum by 4 hours following administration via enteric tube. IMPRESSION: * No evidence of high-grade small bowel obstruction. Contrast progresses to large bowel by the 4 hour time point. Approved by Whitney Burciaga MD on 10/11/2024 2:44 PM IEdmar MD have personally reviewed the image(s) and agree with and/or edited the report Finalized by Edmar Dos Santos MD on 10/11/2024 3:47 PM X-ray chest 1 view Result Date: 10/11/2024 Narrative: EXAM: XR CHEST 1 VW CLINICAL INFORMATION: rhonchi on exam. COMPARISON: 04/12/2023 FINDINGS: The tip of the gastric tube is in the stomach. There are low lung volumes with associated hypoventilatory changes. There may be a trace left pleural effusion. There is no pulmonary edema. There are no definite focal consolidations. Stable cardiomediastinal silhouette. Stable left chest wall devicewith a lead extending into the neck. IMPRESSION: 1. Gastric tube with tip in stomach. 2. Possible trace left pleural effusion. There is no evidence of pulmonary edema. Finalized by Rk Borges MD on 10/11/2024 1:16 PM X-ray abdomen ap 1 view Result Date: 10/11/2024 Narrative: EXAM: XR ABDOMEN AP 1 VW CLINICAL INFORMATION: f/u SBO. COMPARISON: 10/09/2024 FINDINGS: The tip of the gastric tube is in the stomach. There has been interval improvement in air-filled dilated loops of small bowel. There is no convincing evidence for obstruction on the current examination. Left lower quadrant postsurgical changes are noted. IMPRESSION: 1. Gastric tube tip in stomach. 2.Interval resolution of previously seen changes of small bowel obstruction. There is no convincing evidence for obstruction on the current examination. 3. Post surgical changes of the left lower quadrant. Finalized by Rk Borges MD on 10/11/2024 1:05 PM X-ray abdomen NG Tube placement 1 view Result Date: 10/09/2024 Narrative: Abdomen: HISTORY: Enteric tube placement. Single view of the abdomen was obtained. Enteric tube tip is likely within mid stomach. Small bowel is distended to approximately 5.7 cm. Findingssuggest small bowel obstruction. No free air. IMPRESSION: Suspect small bowel obstruction. Enteric tube tip within mid stomach. Finalized by Dimas Delgado MD on 10/09/2024 11:[address] abdomen and pelvis without contrast Result Date: 10/09/2024 Narrative: EXAM: CT ABDOMEN AND PELVIS WITHOUT CONTRAST 10/09/2024 02:17:59 PM TECHNIQUE: CT of theabdomen and pelvis was performed without the administration of intravenous contrast. Multiplanar reformatted images are provided for review. Automated exposure control, iterative reconstruction, and/or weight based adjustment of the mA/kV was utilized to reduce the radiation dose to as low as reasonably achievable. COMPARISON: XR Abdomen 08/21/2024; CT Abdomen Pelvis 08/18/2024. CLINICAL HISTORY:Diarrhea. FINDINGS: LOWER CHEST: No acute abnormality. LIVER: The liver is unremarkable. GALLBLADDER AND BILE DUCTS: Gallbladder is unremarkable. No biliary ductal dilatation. SPLEEN: No acute abnormality. PANCREAS: No acute abnormality. ADRENAL GLANDS: No acute abnormality. KIDNEYS, URETERS AND BLADDER: A partially calcified subcapsular hematoma is seen involving the left kidney and is similar to the prior examination. No stones in the kidneys or ureters. No hydronephrosis. No perinephric or periureteral stranding. Urinary bladder is unremarkable. GI AND BOWEL: Distended stomach without obstructing cause seen on this examination. Distended small bowel loops with air-fluid levels with air-fluid levels in the proximal aspect, although more normal caliber is seen distally. A definite transition point is not seen. PERITONEUM AND RETROPERITONEUM: No ascites. No free air. VASCULATURE: Aorta is normal in caliber. LYMPH NODES: No lymphadenopathy. REPRODUCTIVE ORGANS: The prostate is atrophic. BONES AND SOFT TISSUES: No acute osseous abnormality. No focal soft tissue abnormality. Impression: 1. Distended small bowel loops with air-fluid levels, without a definite transition point, possibly ileus 2. Partially calcified subcapsular hematoma involving the left kidney, similar tothe prior examination. HOSPITAL PROBLEM LIST Principal Problem: Small bowel obstruction ([facility]) Active Problems: Seizures ([facility]) Mental retardation Class 2 obesity due to excess calories with body mass index (BMI) of 36.0 to 36.9 in adult Urinary retention Hypomagnesemia ASSESSMENT & PLAN Small-bowel obstruction -recently was [facility] on 10/13/2024 for treatment small-bowel obstruction was treatedconservatively with NG tube. Patient had small-bowel follow-through on 10/11/2024 did not show any evidence of bowel obstruction. -has an extensive surgical history that he had intussusception of the bowel at 7 months and had multiple bowel obstruction since some treated with surgery. -general surgery following -NG clamped -repeat abdominal x-ray improved but persistent small-bowel dilation -IV hydration suspect leukocytosis is from dehydration -continue with Flagyl and Levaquin for now -lipase trending down 45 -small-bowel follow-through per general surgery -change fluids to D5 half-normal saline with added potassium -GI follow through negative per Grillis clears and keep NG tube clamped HypoMagnesemia -supplement and replace History of MR DD -supportive care History of seizure disorder -continue with Keppra b.i.d. -seizure precautions in place Class 2 obesity with BMI of 36 -supportive care DC planning: Full Code if continues to do well likely d/c Sunday or Sunday per Vicky's recommendation Medically Ready for Discharge: 1-2 days Asked nursing to verify meds so we can re-start RALPH Ivey 10/17/2024 1:55 PM [facility] 7AM-7PM & 7PM-7AM: EpicChat or page through On-Call Finder. RALPH Ivey 10/17/24 1231 Physician Attestation I, Sanam Guido MD, personally performed a face to face diagnostic evaluation on this patient. I have reviewed the note authored by the advance practice provider including history, review of systems,physical examination,medical decision making and agree with the assessment and plan as written. I have seen and evaluated the patient, I have repeated the gee portions of the physical exam and concur with the MEMO findings. I have reviewed all laboratory findings and imaging reports/films. I agree with the plan as noted. Patient is on a clear liquid diet per General surgery recommendation. Recent labs reviewed. MonitorCBC, CMP replace electrolytes per sliding scale * Irwin Ge, DO - 10/17/2024 6:57 AM EDT Daily Progress Note NAME: Amol Taylor : 1955 Principal Problem: Small bowel obstruction ([facility]) Active Problems: Seizures ([facility]) Mental retardation Class 2 obesity due to excess calories with body mass index (BMI) of 36.0 to 36.9 in adult Urinary retention Hypomagnesemia LOS: 3 days Subjective No acute events overnight. Denies any belly pain. Flow sheet from nursing showed that he had a large bowel movement at 12:30 p.m. this morning and then again at 6:30 a.m. he had a smaller 1. Small-bowel series interpretation is pending but does not look like obstruction to me. Await final x-ray report. Vital signs in last 24 hours: Temp: [36.4 C (97.6 F)-37.1 C (98.7 F)] 36.4 C (97.6 F) Pulse: [55-85] 56 Resp: [14-20] 14 BP: (128-147)/(70-80) 140/77 SpO2: [91 %-100 %] 99 % O2 Device: None (Room air) Intake/Output last 3 shifts: I/O last 3 completed shifts: In: 3612.9 [I.V.:2639.6; NG/GT:120; IV Piggyback:853.4] Out: 1250 [Urine:1050; Emesis/NG output:200] Intake/Output this shift: I/O this shift: In: - Out: 350 [Urine:350] Physical Exam: Constitutional: He is oriented to person, place, and time. Vital signs are normal. He appears well-developed and well-nourished. Abdomen obese soft and nontender Neurological: He is alert and oriented to person, place, and time. Skin: Skin is warm, dry and intact. LABS Results: Lab Results Component Value Date WBC 7.4 10/17/2024 HGB 11.2 (L) 10/17/2024 HCT 32.3 (L) 10/17/2024 MCV 93 10/17/2024 PLT 210 10/17/2024 Lab Results Component Value Date GLU 96 10/17/2024 CALCIUM 8.2 (L) 10/17/2024 SODIUM 140 10/17/2024 K 3.3 (L) 10/17/2024 CO2 23 10/17/2024 BUN 16 10/17/2024 CREATININE 0.77 10/17/2024 Impression: 1. SBO resolving most likely 2. Hypokalemia with a potassium of 3.3 Plan: Pending small-bowel series final interpretation and if no obstruction would clamp NG tube and try clear liquids Small bowel series shows no evidence of the obstruction therefore we will clamp NG tube and try clear liquids. Recommend replacing potassium to keep it above 4.0 - Irwin Ge DO 10/17/24 6:57 AM * Sanam Guido MD - 10/16/2024 12:53 PM EDT Images from the original note were not included. [facility] INTERNAL MEDICINE [facility] [address] [facility] [id number] Hospital Medicine Progress Note Patient: Amol Taylor Date of : 1955 Room: PCP: CARSON DIOR MD Admission date: 10/14/2024 11:17 AM Encounter date: 10/16/24 Hospital Day: 3 SUBJECTIVE Interval History: Status: Improved. No overnight events. Patient reports nothing reports that he feels fine denies anything when asked. Denies belly pain. 1 bm overnight overnight did have 200 mL out of NG tube belly is soft BM was soft. Review of Systems Constitutional: Positive for decreased appetite and malaise/fatigue. Negative for chills, diaphoresis and fever. HENT: Negative for congestion. Cardiovascular: Negative for chest pain, dyspnea on exertion, leg swelling and palpitations. Respiratory: Negative for cough, shortness of breath, sputum production and wheezing. Hematologic/Lymphatic: Does not bruise/bleed easily. Skin: Negative for dry skin and poor wound healing. Musculoskeletal: Negative for arthritis, back pain and falls. Gastrointestinal: Negative for bloating, abdominal pain, dysphagia, nausea and vomiting. Genitourinary: Negative for bladder incontinence. Neurological: Negative for excessive daytime sleepiness, dizziness, paresthesias, tremors and weakness. Psychiatric/Behavioral: Negative for altered mental status and memory loss. OBJECTIVE BP 128/70 Pulse 55 Temp 36.5 C (97.7 F) (Oral) Resp 20 Ht 167.6 cm (5' 5.98 ) Wt 100.2 kg(221 lb) SpO2 98% BMI 35.69 kg/m Temp: [36.5 C (97.7 F)-36.8 C (98.2 F)] 36.5 C (97.7 F) Pulse: [55-81] 55 Resp: [18-20] 20 BP: (97-131)/(67-85) 128/70 SpO2: [93 %-100 %] 98 % O2 Device: Nasal cannula O2 Flow Rate (L/min): [2 L/min] 2 L/min Intake/Output Summary (Last 24 hours) at 10/16/2024 1357 Last data filed at 10/16/2024 0905 Gross per 24 hour Intake 1152.99 ml Output 600 ml Net 552.99 ml Physical Exam Vitals (on Ra) and nursing note reviewed. Constitutional: General: He is not in acute distress. Appearance: Normal appearance. He is obese. He is ill-appearing (chronic helmet). He is not toxic-appearing or diaphoretic. HENT: Head: Normocephalic and atraumatic. Nose: Nose normal. Mouth/Throat: Mouth: Mucous membranes are moist. Eyes: Pupils: Pupils are equal, round, and reactive to light. Cardiovascular: Rate and Rhythm: Normal rate and regular rhythm. Pulses: Normal pulses. Heart sounds: Normal heart sounds. Comments: Sinus rhythm heart rate 55 Pulmonary: Effort: Pulmonary effort is normal. No respiratory distress. Breath sounds: Rhonchi (audible does clear with coughing) present. No wheezing or rales. Abdominal: General: Bowel sounds are normal. There is no distension. Palpations: Abdomen is soft. Tenderness: There is no abdominal tenderness. Comments: bowel sounds hypoactive Abdomen soft NG tube LIWS brown foamy drainage Musculoskeletal: Cervical back: Normal range of motion and neck supple. Right lower leg: No edema. Left lower leg: No edema. Comments: Small hands able to grasp and follow all commands Moves all extremities Skin: General: Skin is warm and dry. Capillary Refill: Capillary refill takes less than 2 seconds. Neurological: Mental Status: He is alert. Mental status is at baseline. He is disoriented. Sensory: No sensory deficit. Motor: Weakness (generalized) present. Gait: Gait normal. Comments: At baseline Follows simple commands Psychiatric: Mood and Affect: Mood normal. Medications Scheduled: enoxaparin (LOVENOX) injection, 40 mg, subcutaneous, Daily famotidine, 20 mg, intravenous, Q12H DAR levETIRAcetam, 1,000 mg, intravenous, Q12H levoFLOXacin, 750 mg, intravenous, Q24H metroNIDAZOLE, 500 mg, intravenous, Q12H Consult PICC nurse - Midline, , , Once AND sodium chloride, 20 mL, intravenous, Q12H AND sodium chloride, 20 mL, intravenous, PRN AND sodium chloride, 40 mL, intravenous, PRN Infusions: D5 % and 0.45 % sodium chloride, 75 mL/hr As Needed: acetaminophen dextrose dextrose 50 % in water (D50W) glucagon (human recombinant) LORazepam magnesium sulfate magnesium sulfate ondansetron potassium chloride OR potassium chloride OR potassium chloride IV (Adult) sennosides-docusate sodium sodium chloride Consult PICC nurse - Midline AND sodium chloride AND sodium chloride AND sodium chloride sodium chloride sodium chloride sodium chloride Allergies: Penicillins, Sodium hypochlorite, Bleach (sodium hypochlorite), Tree nuts, and Clindamycin Labs Recent Results (from the past 24 hours) Comprehensive metabolic panel Collection Time: 10/16/24 5:29 AM Result Value Ref Range SODIUM 142 134 - 146 mmol/L POTASSIUM 3.9 3.5 - 5.0 mmol/L CHLORIDE 114 (H) 98 - 109 mmol/L CARBON DIOXIDE 19 (L) 22 - 32 mmol/L ANION GAP 9 5 - 15 mmol/L BLOOD UREA NITROGEN 20 5 - 27 mg/dL CREATININE 0.77 0.70 - 1.20 mg/dL GLUCOSE 83 65 - 99 mg/dL CALCIUM 8.2 (L) 8.5 - 10.5 mg/dL TOTAL PROTEIN 6.1 6.0 - 8.0 g/dL ALBUMIN 3.0 (L) 3.2 - 5.3 g/dL ALKALINE PHOSPHATASE 107 39 - 130 U/L AST 14 <=41 U/L ALT 16 <=40 U/L BILIRUBIN,TOTAL 0.5 0.3 - 1.2 mg/dL EGFR Non-Race Dependent >90 >=60 ml/min/1.73sq.m Magnesium Collection Time: 10/16/24 5:29 AM Result Value Ref Range MAGNESIUM 1.7 (L) 1.8 - 2.6 mg/dL Extra Tubes Collection Time: 10/16/24 8:09 AM Narrative The following orders were created for panel order Extra Tubes. Procedure Abnormality Status --------- ------ [facility] TOP[[id number]] Final result Please view results for these tests on the individual orders. [facility] TOP Collection Time: 10/16/24 8:09 AM Result Value Ref Range Extra Tube Auto Resulted CBC auto differential Collection Time: 10/16/24 8:10 AM Result Value Ref Range WBC 7.2 4 - 11 x10E9/L RBC Count 3.59 (L) 4.1 - 5.7 X10E12/L Hemoglobin 11.6 (L) 13 - 17 g/dL Hematocrit 34.1 (L) 39 - 50 % MCV 95 80 - 100 fL MCH 32.4 27 - 34 pg MCHC 34.1 32 - 36 g/dL RDW 13.0 11.5 - 15 % Platelet Count 181 150 - 450 X10E9/L MPV 7.2 7 - 12 fL Neutrophils % 68.3 % Lymphocytes % 19.7 % Monocytes % 7.1 % Eosinophils % 4.4 % Basophils % 0.5 % Neutrophils Absolute (A) 4.9 1.5 - 6.6 10*3/uL Lymphocytes Absolute 1.4 1.0 - 3.5 10*3/uL Monocytes Absolute 0.5 0.0 - 0.9 10*3/uL Eosinophils Absolute 0.3 0.0 - 0.4 10*3/uL Basophils Absolute 0.0 0.0 - 0.2 10*3/uL Differential Type AUTOMATED DIFFERENTIAL Radiology X-ray chest 2 views Result Date: 10/15/2024 Narrative: Chest 2 views History: Coarse rhonchi throughout all lung matta rule out pneumonia versus atelectasis Comparison: 10/11/2024 Findings: Chest 2 views. Stable cardiomegaly mediastinal silhouette. This patient rotation towards the left compromising assessment. There is no pneumothorax. Thereis bilateral lower lung atelectasis. Impression: Stable appearance of the chest and likely bilateral lower lung atelectasis. Finalized by Irwin Rivera MD on 10/15/2024 7:45 AM X-ray abdomen ap 1 view Result Date: 10/14/2024 Narrative: History: NG placement EXAM: Abdomen supine COMPARISON: CT abdomen pelvis IMPRESSION: NG tube tip in gastric fundus, in satisfactory position. Finalized by Lizz Montalvo MD on 10/14/2024 6:[address] abdomen and pelvis with contrast Result Date: 10/14/2024 Narrative: STUDY: ABDOMEN AND PELVIS CT WITH CONTRAST CLINICAL HISTORY: Abdominal pain. Small bowelobstruction. Questionable small bowel obstruction COMPARISON: 04/07/2023 TECHNIQUE: CT abdomen and pelvis was performed utilizing 5 mm axial reconstructions following the uneventful administration of 100 cc Omnipaque 300 nonionic intravenous contrast. Coronal and sagittal reformatted images as well as delayed excretory phase images were obtained and reviewed. Automated exposure control was utilized. FINDINGS: Abdomen: No pleural or pericardial effusion and lung bases. Dependent changes and atelectasis in both lungs. Severe distention of the stomach. There is fluid-filled dilated small bowel loops with relatively decompressed distal small bowel loops could represent evolving ileus or obstruction. There is no evidence of free intraperitoneal gas. The liver, adrenal glands, pancreas and spleenappear grossly unremarkable. There is a calcified subcapsular left renal lesion stable likely representing sequela of prior subcapsular hematoma. No renal collecting system dilatation. No enlarged mesenteric or retroperitoneal lymph nodes. Pelvis: No free pelvic fluid. No enlarged pelvic lymph nodes. Urinary bladder is grossly unremarkable. Degenerative change of the thoracolumbar spine. No verteb ral body height loss. IMPRESSION: 1. Fluid-filled mildly dilated proximal small bowel loops and distention of the stomach represent evolving small bowel obstruction or ileus. Consider Gastrografin challenge. All CT scans at this facility use dose modulation, iterative reconstruction, and/or weight based dosing when appropriate to reduce radiation dose to as low as reasonably achievable. Finalized by Irwin Rivera MD on 10/14/2024 2:19 PM Fluoroscopy small bowel Result Date: 10/11/2024 Narrative: FL SMALL BOWEL HISTORY: Small bowel obstruction, abdominal distention COMPARISON: Same day abdominal radiograph FINDINGS: Images: 3, same day abdominal radiograph was used as contract modeler imaging. Para Educator view shows a few gas- filled loops of distended small bowel as well as gas within the large bowel and rectum. Enteric tube visualized with side-port terminating over the expected location of the stomach. Linear calcifications overlying the left renal fossa which correspond to peripherally calcified renal cyst visualized on CT abdomen and pelvis dated 04/07/2023. Suture material visualized in the left lower quadrant. Normal progression of enteric contrast in the small bowel. No significantlydilated loops of small bowel. Enteric contrast visualized to reach the cecum by 4 hours following administration via enteric tube. IMPRESSION: * No evidence of high-grade small bowel obstruction. Contrast progresses to large bowel by the 4 hour time point. Approved by Whitney Burciaga MD on 10/11/2024 2:44 PM I, Edmar Dos Santos MD have personally reviewed the image(s) and agree with and/or edited the report Finalized by dEmar Dos Santos MD on 10/11/2024 3:47 PM X-ray chest 1 view Result Date: 10/11/2024 Narrative: EXAM: XR CHEST 1 VW CLINICAL INFORMATION: rhonchi on exam. COMPARISON: 04/12/2023 FINDINGS: The tip of the gastric tube is in the stomach. There are low lung volumes with associated hypoventilatory changes. There may be a trace left pleural effusion. There is no pulmonary edema. There are no definite focal consolidations. Stable cardiomediastinal silhouette. Stable left chest wall devicewith a lead extending into the neck. IMPRESSION: 1. Gastric tube with tip in stomach. 2. Possible trace left pleural effusion. There is no evidence of pulmonary edema. Finalized by Rk Borges MD on 10/11/2024 1:16 PM X-ray abdomen ap 1 view Result Date: 10/11/2024 Narrative: EXAM: XR ABDOMEN AP 1 VW CLINICAL INFORMATION: f/u SBO. COMPARISON: 10/09/2024 FINDINGS: The tip of the gastric tube is in the stomach. There has been interval improvement in air-filled dilated loops of small bowel. There is no convincing evidence for obstruction on the current examination. Left lower quadrant postsurgical changes are noted. IMPRESSION: 1. Gastric tube tip in stomach. 2.Interval resolution of previously seen changes of small bowel obstruction. There is no convincing evidence for obstruction on the current examination. 3. Post surgical changes of the left lower quadrant. Finalized by Rk Borges MD on 10/11/2024 1:05 PM X-ray abdomen NG Tube placement 1 view Result Date: 10/09/2024 Narrative: Abdomen: HISTORY: Enteric tube placement. Single view of the abdomen was obtained. Enteric tube tip is likely within mid stomach. Small bowel is distended to approximately 5.7 cm. Findingssuggest small bowel obstruction. No free air. IMPRESSION: Suspect small bowel obstruction. Enteric tube tip within mid stomach. Finalized by Dimas Delgado MD on 10/09/2024 11:[address] abdomen and pelvis without contrast Result Date: 10/09/2024 Narrative: EXAM: CT ABDOMEN AND PELVIS WITHOUT CONTRAST 10/09/2024 02:17:59 PM TECHNIQUE: CT of theabdomen and pelvis was performed without the administration of intravenous contrast. Multiplanar reformatted images are provided for review. Automated exposure control, iterative reconstruction, and/or weight based adjustment of the mA/kV was utilized to reduce the radiation dose to as low as reasonably achievable. COMPARISON: XR Abdomen 08/21/2024; CT Abdomen Pelvis 08/18/2024. CLINICAL HISTORY:Diarrhea. FINDINGS: LOWER CHEST: No acute abnormality. LIVER: The liver is unremarkable. GALLBLADDER AND BILE DUCTS: Gallbladder is unremarkable. No biliary ductal dilatation. SPLEEN: No acute abnormality. PANCREAS: No acute abnormality. ADRENAL GLANDS: No acute abnormality. KIDNEYS, URETERS AND BLADDER: A partially calcified subcapsular hematoma is seen involving the left kidney and is similar to the prior examination. No stones in the kidneys or ureters. No hydronephrosis. No perinephric or periureteral stranding. Urinary bladder is unremarkable. GI AND BOWEL: Distended stomach without obstructing cause seen on this examination. Distended small bowel loops with air-fluid levels with air-fluid levels in the proximal aspect, although more normal caliber is seen distally. A definite transition point is not seen. PERITONEUM AND RETROPERITONEUM: No ascites. No free air. VASCULATURE: Aorta is normal in caliber. LYMPH NODES: No lymphadenopathy. REPRODUCTIVE ORGANS: The prostate is atrophic. BONES AND SOFT TISSUES: No acute osseous abnormality. No focal soft tissue abnormality. Impression: 1. Distended small bowel loops with air-fluid levels, without a definite transition point, possibly ileus 2. Partially calcified subcapsular hematoma involving the left kidney, similar tothe prior examination. HOSPITAL PROBLEM LIST Principal Problem: Small bowel obstruction (CMS-HCC) Active Problems: Seizures (CMS-HCC) Mental retardation Class 2 obesity due to excess calories with body mass index (BMI) of 36.0 to 36.9 in adult Urinary retention Hypomagnesemia ASSESSMENT & PLAN Small-bowel obstruction -recently was add [facility] on 10/13/2024 for treatment small-bowel obstruction was treatedconservatively with NG tube. Patient had small-bowel follow-through on 10/11/2024 did not show any evidence of bowel obstruction. -has an extensive surgical history that he had intussusception of the bowel at 7 months and had multiple bowel obstruction since some treated with surgery. -general surgery following -NG low intermittent wall suction 200ml overnight by nursing -repeat abdominal x-ray improved but persistent small-bowel dilation -IV hydration suspect leukocytosis is from dehydration -continue with Flagyl and Levaquin for now -lipase trending down 45 -small-bowel follow-through per general surgery -change fluids to D5 half-normal saline HypoMagnesemia -supplement History of MR DD -supportive care History of seizure disorder -continue with Keppra b.i.d. -seizure precautions in place Class 2 obesity with BMI of 36 -supportive care DC planning: Full Code, will need additional 1-2 days. Medically Ready for Discharge: Anticipated in 2-4 Days RALPH Ivey 10/16/2024 1:57 PM [facility] 7AM-7PM & 7PM-7AM: EpicChat or page through On-[employer]. RALPH Ivey 10/16/24 1310 Physician Attestation I, Sanam Guido MD, personally performed a face to face diagnostic evaluation on this patient. I have reviewed the note authored by the advance practice provider including history, review of systems,physical examination,medical decision making and agree with the assessment and plan as written. I have seen and evaluated the patient, I have repeated the gee portions of the physical exam and concur with the MEMO findings. I have reviewed all laboratory findings and imaging reports/films. I agree with the plan as noted. There have been no reports of nausea vomiting per nursing staff overnight. Small-bowel follow-through today per General surgery on IV fluids on IV antibiotics. * Irwin Ge, DO - 10/16/2024 8:51 AM EDT Daily Progress Note NAME: Amol Taylor : 1955 Principal Problem: Small bowel obstruction (CMS-HCC) Active Problems: Seizures (CMS-HCC) Mental retardation Class 2 obesity due to excess calories with body mass index (BMI) of 36.0 to 36.9 in adult Urinary retention LOS: 2 days Subjective Patient seen at bedside today, reports he is doing fine, no overnight fevers reported. Patient has a poor historian. Patient states he did not have a bowel movement, however nurse stated that he had a soft bowel movement overnight and he is incontinent of stool. Patient denies any nausea, headache,fevers, or chills. NG tube not actively draining. Vital signs in last 24 hours: Temp: [36.4 C (97.5 F)-36.8 C (98.2 F)] 36.6 C (97.9 F) Pulse: [61-81] 61 Resp: [18-22] 20 BP: (93-131)/(67-85) 130/80 SpO2: [97 %-100 %] 97 % O2 Device: Nasal cannula O2 Flow Rate (L/min): [2 L/min] 2 L/min Intake/Output last 3 shifts: I/O last 3 completed shifts: In: 2418 [I.V.:1498; IV Piggyback:920] Out: 1340 [Urine:400; Emesis/NG output:940] Intake/Output this shift: No intake/output data recorded. Physical Exam: Constitutional: Vital signs are normal. He appears well-developed and well-nourished. Cardiovascular: Normal rate and regular rhythm. Pulmonary/Chest: Effort normal and breath sounds normal. Abdominal: Soft. Robust appearance with several scars. He exhibits no distension or rigidity and nomass. There is no hepatosplenomegaly or splenomegaly. No abdominal hernia. Skin: Skin is warm, dry and intact. LABS Results: Lab Results Component Value Date WBC 7.2 10/16/2024 HGB 11.6 (L) 10/16/2024 HCT 34.1 (L) 10/16/2024 MCV 95 10/16/2024 PLT 181 10/16/2024 Lab Results Component Value Date GLU 83 10/16/2024 CALCIUM 8.2 (L) 10/16/2024 SODIUM 142 10/16/2024 K 3.9 10/16/2024 CO2 19 (L) 10/16/2024 BUN 20 10/16/2024 CREATININE 0.77 10/16/2024 X-Ray 10/15/24 Exam/Technique: A portable supine views of the abdomen were obtained. Comparison: 10/14/2024 Findings: There has been improvement in the small bowel dilatation seen on the prior study. Gas distended small bowel persists but decreased in caliber and number since the prior study. Gas is seen in the colon to the level the rectum. Nasogastric tube remains in place. IMPRESSION: Improved but persistent small bowel dilatation. Impression: Mr. Taylor is a 69-year-old male presented for evaluation of the small bowel obstruction with improvement, patient had small soft bowel movement last night indicating possible release of bowel obstruction. 1. Small-bowel obstruction 2. History of MR DD 3. History of seizure disorder 4. class 2 obesity with BMI of 36 Plan: NG tube shows low drainage, trial clip of NG tube Abd x-rays show persistent but improved dilation Pending results of small-bowel follow-through with Gastrografin challenge. - Irwin Ge DO 10/16/24 8:51 AM * Sanam Guido MD - 10/15/2024 11:59 AM EDT Images from the original note were not included. [facility] INTERNAL MEDICINE [facility] [address] [facility] [facility] [id number] Hospital Medicine Progress Note Patient: Amol Taylor Date of : 1955 Room: 208/01 PCP: CARSON DIOR MD Admission date: 10/14/2024 11:17 AM Encounter date: 10/15/24 Hospital Day: 2 SUBJECTIVE Interval History: Status: unchanged. No overnight events. Patient reports nothing reports that he feels fine denies anything when asked. Denies belly pain. 1 bm overnight Review of Systems Constitutional: Positive for decreased appetite and malaise/fatigue. Negative for chills, diaphoresis and fever. HENT: Negative for congestion. Cardiovascular: Negative for chest pain, dyspnea on exertion, leg swelling and palpitations. Respiratory: Negative for cough, shortness of breath, sputum production and wheezing. Hematologic/Lymphatic: Does not bruise/bleed easily. Skin: Negative for dry skin and poor wound healing. Musculoskeletal: Negative for arthritis, back pain and falls. Gastrointestinal: Negative for bloating, abdominal pain, dysphagia, nausea and vomiting. Genitourinary: Negative for bladder incontinence. Neurological: Negative for excessive daytime sleepiness, dizziness, paresthesias, tremors and weakness. Psychiatric/Behavioral: Negative for altered mental status and memory loss. OBJECTIVE BP 93/75 Pulse 81 Temp 36.4 C (97.5 F) (Oral) Resp 22 Ht 167.6 cm (5' 5.98 ) Wt 97 kg (213 lb 14.4 oz) SpO2 100% BMI 34.54 kg/m Temp: [36.3 C (97.4 F)-36.9 C (98.4 F)] 36.4 C (97.5 F) Pulse: [80-99] 81 Resp: [18-22] 22 BP: (93-134)/(67-85) 93/75 SpO2: [93 %-100 %] 100 % O2 Device: Nasal cannula O2 Flow Rate (L/min): [2 L/min] 2 L/min Intake/Output Summary (Last 24 hours) at 10/15/2024 1431 Last data filed at 10/15/2024 1418 Gross per 24 hour Intake 2007.78 ml Output 1690 ml Net 317.78 ml Physical Exam Vitals (on Ra) and nursing note reviewed. Constitutional: General: He is not in acute distress. Appearance: Normal appearance. He is obese. He is ill-appearing (chronic helmet). He is not toxic-appearing or diaphoretic. HENT: Head: Normocephalic and atraumatic. Nose: Nose normal. Mouth/Throat: Mouth: Mucous membranes are moist. Eyes: Pupils: Pupils are equal, round, and reactive to light. Cardiovascular: Rate and Rhythm: Normal rate and regular rhythm. Pulses: Normal pulses. Heart sounds: Normal heart sounds. Comments: Sinus rhythm heart rate 81 Pulmonary: Effort: Pulmonary effort is normal. No respiratory distress. Breath sounds: Rhonchi (audible does clear with coughing) present. No wheezing or rales. Abdominal: General: Bowel sounds are normal. There is no distension. Palpations: Abdomen is soft. Tenderness: There is no abdominal tenderness. Comments: No bowel sounds noted over audible rhonchi Abdomen soft NG tube LIWS brown milk drainage Musculoskeletal: Cervical back: Normal range of motion and neck supple. Right lower leg: No edema. Left lower leg: No edema. Comments: Small hands able to grasp and follow all commands Moves all extremities Skin: General: Skin is warm and dry. Capillary Refill: Capillary refill takes 2 to 3 seconds. Neurological: Mental Status: He is alert. Mental status is at baseline. He is disoriented. Sensory: No sensory deficit. Motor: Weakness (generalized) present. Gait: Gait normal. Comments: At baseline Follows simple commands Psychiatric: Mood and Affect: Mood normal. Medications Scheduled: famotidine, 20 mg, intravenous, Q12H DAR levETIRAcetam, 1,000 mg, intravenous, Q12H levoFLOXacin, 750 mg, intravenous, Q24H [START ON 10/16/2024] metroNIDAZOLE, 500 mg, intravenous, Q12H Consult PICC nurse - Midline, , , Once AND sodium chloride, 20 mL, intravenous, Q12H AND sodium chloride, 20 mL, intravenous, PRN AND sodium chloride, 40 mL, intravenous, PRN Infusions: dextrose 5 % in water, 100 mL/hr sodium chloride 0.9 %, 20 mL/hr, Last Rate: 20 mL/hr (10/15/24 1418) sodium chloride 0.9 %, 75 mL/hr, Last Rate: 75 mL/hr (10/15/24 1418) sodium chloride 0.9 %, 125 mL/hr, Last Rate: Stopped (10/14/24 1505) sodium chloride 0.9 %, 75 mL/hr As Needed: acetaminophen dextrose dextrose 5 % in water dextrose 50 % in water (D50W) glucagon (human recombinant) LORazepam magnesium sulfate magnesium sulfate ondansetron potassium chloride OR potassium chloride OR potassium chloride IV (Adult) sennosides-docusate sodium sodium chloride Consult PICC nurse - Midline AND sodium chloride AND sodium chloride AND sodium chloride sodium chloride sodium chloride sodium chloride 0.9 % sodium chloride Allergies: Penicillins, Sodium hypochlorite, Bleach (sodium hypochlorite), Tree nuts, and Clindamycin Labs Recent Results (from the past 24 hours) Comprehensive metabolic panel Collection Time: 10/14/24 2:51 PM Result Value Ref Range SODIUM 137 134 - 146 mmol/L POTASSIUM 3.6 3.5 - 5.0 mmol/L CHLORIDE 107 98 - 109 mmol/L CARBON DIOXIDE 21 (L) 22 - 32 mmol/L ANION GAP 9 5 - 15 mmol/L BLOOD UREA NITROGEN 32 (H) 5 - 27 mg/dL CREATININE 1.17 0.70 - 1.20 mg/dL GLUCOSE 122 (H) 65 - 99 mg/dL CALCIUM 9.4 8.5 - 10.5 mg/dL TOTAL PROTEIN 8.8 (H) 6.0 - 8.0 g/dL ALBUMIN 4.4 3.2 - 5.3 g/dL ALKALINE PHOSPHATASE 156 (H) 39 - 130 U/L AST 22 <=41 U/L ALT 28 <=40 U/L BILIRUBIN,TOTAL 0.6 0.3 - 1.2 mg/dL EGFR Non-Race Dependent 68 >=60 ml/min/1.73sq.m Lipase Collection Time: 10/14/24 2:51 PM Result Value Ref Range LIPASE 58 (H) 17 - 40 U/L Magnesium Collection Time: 10/14/24 2:51 PM Result Value Ref Range MAGNESIUM 1.8 1.8 - 2.6 mg/dL Comprehensive metabolic panel Collection Time: 10/15/24 5:57 AM Result Value Ref Range SODIUM 142 134 - 146 mmol/L POTASSIUM 3.9 3.5 - 5.0 mmol/L CHLORIDE 109 98 - 109 mmol/L CARBON DIOXIDE 23 22 - 32 mmol/L ANION GAP 10 5 - 15 mmol/L BLOOD UREA NITROGEN 28 (H) 5 - 27 mg/dL CREATININE 0.97 0.70 - 1.20 mg/dL GLUCOSE 108 (H) 65 - 99 mg/dL CALCIUM 8.5 8.5 - 10.5 mg/dL TOTAL PROTEIN 7.0 6.0 - 8.0 g/dL ALBUMIN 3.5 3.2 - 5.3 g/dL ALKALINE PHOSPHATASE 126 39 - 130 U/L AST 16 <=41 U/L ALT 21 <=40 U/L BILIRUBIN,TOTAL 0.1 (L) 0.3 - 1.2 mg/dL EGFR Non-Race Dependent 85 >=60 ml/min/1.73sq.m Magnesium Collection Time: 10/15/24 5:57 AM Result Value Ref Range MAGNESIUM 2.4 1.8 - 2.6 mg/dL CBC auto differential Collection Time: 10/15/24 5:57 AM Result Value Ref Range WBC 11.4 (H) 4 - 11 x10E9/L RBC Count 4.01 (L) 4.1 - 5.7 X10E12/L Hemoglobin 12.8 (L) 13 - 17 g/dL Hematocrit 38.0 (L) 39 - 50 % MCV 95 80 - 100 fL MCH 31.8 27 - 34 pg MCHC 33.7 32 - 36 g/dL RDW 13.1 11.5 - 15 % Platelet Count 251 150 - 450 X10E9/L MPV 7.5 7 - 12 fL Neutrophils % 72.4 % Lymphocytes % 16.7 % Monocytes % 7.3 % Eosinophils % 3.2 % Basophils % 0.4 % Neutrophils Absolute (A) 8.3 (H) 1.5 - 6.6 10*3/uL Lymphocytes Absolute 1.9 1.0 - 3.5 10*3/uL Monocytes Absolute 0.8 0.0 - 0.9 10*3/uL Eosinophils Absolute 0.4 0.0 - 0.4 10*3/uL Basophils Absolute 0.1 0.0 - 0.2 10*3/uL Differential Type AUTOMATED DIFFERENTIAL Lipase Collection Time: 10/15/24 5:57 AM Result Value Ref Range LIPASE 45 (H) 17 - 40 U/L Radiology X-ray chest 2 views Result Date: 10/15/2024 Narrative: Chest 2 views History: Coarse rhonchi throughout all lung matta rule out pneumonia versus atelectasis Comparison: 10/11/2024 Findings: Chest 2 views. Stable cardiomegaly mediastinal silhouette. This patient rotation towards the left compromising assessment. There is no pneumothorax. Thereis bilateral lower lung atelectasis. Impression: Stable appearance of the chest and likely bilateral lower lung atelectasis. Finalized by Irwin Rivera MD on 10/15/2024 7:45 AM X-ray abdomen ap 1 view Result Date: 10/14/2024 Narrative: History: NG placement EXAM: Abdomen supine COMPARISON: CT abdomen pelvis IMPRESSION: NG tube tip in gastric fundus, in satisfactory position. Finalized by Lizz Montlavo MD on 10/14/2024 6:[address] abdomen and pelvis with contrast Result Date: 10/14/2024 Narrative: STUDY: ABDOMEN AND PELVIS CT WITH CONTRAST CLINICAL HISTORY: Abdominal pain. Small bowelobstruction. Questionable small bowel obstruction COMPARISON: 04/07/2023 TECHNIQUE: CT abdomen and pelvis was performed utilizing 5 mm axial reconstructions following the uneventful administration of 100 cc Omnipaque 300 nonionic intravenous contrast. Coronal and sagittal reformatted images as well as delayed excretory phase images were obtained and reviewed. Automated exposure control was utilized. FINDINGS: Abdomen: No pleural or pericardial effusion and lung bases. Dependent changes and atelectasis in both lungs. Severe distention of the stomach. There is fluid-filled dilated small bowel loops with relatively decompressed distal small bowel loops could represent evolving ileus or obstruction. There is no evidence of free intraperitoneal gas. The liver, adrenal glands, pancreas and spleenappear grossly unremarkable. There is a calcified subcapsular left renal lesion stable likely representing sequela of prior subcapsular hematoma. No renal collecting system dilatation. No enlarged mesenteric or retroperitoneal lymph nodes. Pelvis: No free pelvic fluid. No enlarged pelvic lymph nodes. Urinary bladder is grossly unremarkable. Degenerative change of the thoracolumbar spine. No verteb ral body height loss. IMPRESSION: 1. Fluid-filled mildly dilated proximal small bowel loops and distention of the stomach represent evolving small bowel obstruction or ileus. Consider Gastrografin challenge. All CT scans at this facility use dose modulation, iterative reconstruction, and/or weight based dosing when appropriate to reduce radiation dose to as low as reasonably achievable. Finalized by Irwin Rivera MD on 10/14/2024 2:19 PM Fluoroscopy small bowel Result Date: 10/11/2024 Narrative: FL SMALL BOWEL HISTORY: Small bowel obstruction, abdominal distention COMPARISON: Same day abdominal radiograph FINDINGS: Images: 3, same day abdominal radiograph was used as contract modeler imaging. Para Educator view shows a few gas- filled loops of distended small bowel as well as gas within the large bowel and rectum. Enteric tube visualized with side-port terminating over the expected location of the stomach. Linear calcifications overlying the left renal fossa which correspond to peripherally calcified renal cyst visualized on CT abdomen and pelvis dated 04/07/2023. Suture material visualized in the left lower quadrant. Normal progression of enteric contrast in the small bowel. No significantlydilated loops of small bowel. Enteric contrast visualized to reach the cecum by 4 hours following administration via enteric tube. IMPRESSION: * No evidence of high-grade small bowel obstruction. Contrast progresses to large bowel by the 4 hour time point. Approved by Whitney Burciaga MD on 10/11/2024 2:44 PM I, Edmar Dos Santos MD have personally reviewed the image(s) and agree with and/or edited the report Finalized by Edmar Dos Santos MD on 10/11/2024 3:47 PM X-ray chest 1 view Result Date: 10/11/2024 Narrative: EXAM: XR CHEST 1 VW CLINICAL INFORMATION: rhonchi on exam. COMPARISON: 04/12/2023 FINDINGS: The tip of the gastric tube is in the stomach. There are low lung volumes with associated hypoventilatory changes. There may be a trace left pleural effusion. There is no pulmonary edema. There are no definite focal consolidations. Stable cardiomediastinal silhouette. Stable left chest wall devicewith a lead extending into the neck. IMPRESSION: 1. Gastric tube with tip in stomach. 2. Possible trace left pleural effusion. There is no evidence of pulmonary edema. Finalized by Rk Borges MD on 10/11/2024 1:16 PM X-ray abdomen ap 1 view Result Date: 10/11/2024 Narrative: EXAM: XR ABDOMEN AP 1 VW CLINICAL INFORMATION: f/u SBO. COMPARISON: 10/09/2024 FINDINGS: The tip of the gastric tube is in the stomach. There has been interval improvement in air-filled dilated loops of small bowel. There is no convincing evidence for obstruction on the current examination. Left lower quadrant postsurgical changes are noted. IMPRESSION: 1. Gastric tube tip in stomach. 2.Interval resolution of previously seen changes of small bowel obstruction. There is no convincing evidence for obstruction on the current examination. 3. Post surgical changes of the left lower quadrant. Finalized by Rk Borges MD on 10/11/2024 1:05 PM X-ray abdomen NG Tube placement 1 view Result Date: 10/09/2024 Narrative: Abdomen: HISTORY: Enteric tube placement. Single view of the abdomen was obtained. Enteric tube tip is likely within mid stomach. Small bowel is distended to approximately 5.7 cm. Findingssuggest small bowel obstruction. No free air. IMPRESSION: Suspect small bowel obstruction. Enteric tube tip within mid stomach. Finalized by Dimas Delgado MD on 10/09/2024 11:[address] abdomen and pelvis without contrast Result Date: 10/09/2024 Narrative: EXAM: CT ABDOMEN AND PELVIS WITHOUT CONTRAST 10/09/2024 02:17:59 PM TECHNIQUE: CT of theabdomen and pelvis was performed without the administration of intravenous contrast. Multiplanar reformatted images are provided for review. Automated exposure control, iterative reconstruction, and/or weight based adjustment of the mA/kV was utilized to reduce the radiation dose to as low as reasonably achievable. COMPARISON: XR Abdomen 08/21/2024; CT Abdomen Pelvis 08/18/2024. CLINICAL HISTORY:Diarrhea. FINDINGS: LOWER CHEST: No acute abnormality. LIVER: The liver is unremarkable. GALLBLADDER AND BILE DUCTS: Gallbladder is unremarkable. No biliary ductal dilatation. SPLEEN: No acute abnormality. PANCREAS: No acute abnormality. ADRENAL GLANDS: No acute abnormality. KIDNEYS, URETERS AND BLADDER: A partially calcified subcapsular hematoma is seen involving the left kidney and is similar to the prior examination. No stones in the kidneys or ureters. No hydronephrosis. No perinephric or periureteral stranding. Urinary bladder is unremarkable. GI AND BOWEL: Distended stomach without obstructing cause seen on this examination. Distended small bowel loops with air-fluid levels with air-fluid levels in the proximal aspect, although more normal caliber is seen distally. A definite transition point is not seen. PERITONEUM AND RETROPERITONEUM: No ascites. No free air. VASCULATURE: Aorta is normal in caliber. LYMPH NODES: No lymphadenopathy. REPRODUCTIVE ORGANS: The prostate is atrophic. BONES AND SOFT TISSUES: No acute osseous abnormality. No focal soft tissue abnormality. Impression: 1. Distended small bowel loops with air-fluid levels, without a definite transition point, possibly ileus 2. Partially calcified subcapsular hematoma involving the left kidney, similar tothe prior examination. HOSPITAL PROBLEM LIST Principal Problem: Small bowel obstruction (CMS-HCC) Active Problems: Seizures ([facility]) Mental retardation Class 2 obesity due to excess calories with body mass index (BMI) of 36.0 to 36.9 in adult ASSESSMENT & PLAN Small-bowel obstruction -general surgery following -NG low intermittent wall suction -repeat abdominal x-ray tomorrow -IV hydration suspect leukocytosis is from dehydration -continue with Flagyl and Levaquin for now -lipase trending down 45 History of MR DD -supportive care History of seizure disorder -continue with Keppra b.i.d. -seizure precautions in place Class 2 obesity with BMI of 36 -supportive care DC planning: Full Code, will need additional 1-2 days. Medically Ready for Discharge: Anticipated in 2-4 Days RALPH Ivey 10/15/2024 2:31 PM [facility] Internal Medicine 7AM-7PM & 7PM-7AM: EpicChat or page through On-Call Finder. RALPH Ivey 10/15/24 1212 Physician Attestation I, Sanam Guido MD, personally performed a face to face diagnostic evaluation on this patient. I have reviewed the note authored by the advance practice provider including history, review of systems,physical examination,medical decision making and agree with the assessment and plan as written. I have seen and evaluated the patient, I have repeated the gee portions of the physical exam and concur with the MEMO findings. I have reviewed all laboratory findings and imaging reports/films. I agree with the plan as noted. NG tube in place for small-bowel obstruction. Chest x-ray report does not show bibasilar atelectasis. Continue IV Flagyl IV Levaquin. Insert Will catheter for urinary retention. General surgery input noted. IV normal saline at 75 mL/hour [facility] Plan of care note * Plan of Care - Elliott Cabrera RN - 10/18/2024 9:54 AM EDT Problem: Potential for Compromised Skin Integrity Goal: Skin integrity is maintained or improved Description: Patient's goal is: INTERVENTIONS 1. Perform initial skin assessment on admission and as needed 2. Turn patient every 2 hours and PRN 3. Relieve pressure to bony prominences 4. Avoid shearing 5. Keep skin clean and dry 6. Alternate a full bath with partial baths for elderly 7. Apply lotion/moisturizer on skin 8. Monitor patient's hygiene practices 9. Float heels 10. Collaborate with interdisciplinary team and initiate plans and interventions as needed Outcome: Progressing Note: Performed initial skin assessment on admission and as needed. Turned patient every 2 hours and PRN.Relieved pressure to bony prominences. Avoided shearing. Kept skin clean and dry. Problem: Urinary Incontinence Goal: Perineal skin integrity [...] and interventions as needed Outcome: Progressing Note: Assessed genitourinary system, perineal skin, labs (urinalysis), and kept skin clean and dry . [facility] [employer] [id number] Progress note* PT/OT/REGULATORY ADMINISTRATOR - Amarilys Mendez, PT - 10/18/2024 9:13 AM EDT Physical Therapy Evaluation Discharge Recommendations for Safe Patient Transition PT Discharge Disposition Recommendation: Post acute - moderate PT Post Acute Moderate Rehab Needs: Tolerate 1-2 hrs of therapy 3-5 days/wk 6 Clicks: Basic Mobility Turning from your back to your side while in a flat bed without using bed rails?: A little Moving from lying on your back to sitting on side of flat bed without using bed rails?: A lot Moving to and from bed to a chair (including w/c)?: Total Standing up from a chair using your arms (e.g. w/c or bedside chair)?: Total To walk in hospital room?: Total Climbing 3-5 steps with a railing?: Total Scoring 6 Clicks: Basic Mobility Raw Score: 9 [facility] G Code Modifier: CL Therapy Plan Need for skilled Physical Therapy to address deficits in functional mobility due to a status decline resulting from recent medical condition. Pt resting in bed and did not want to get out of bed and states he stays in bed until he gets his medicine and likes to stay in bed. Pt did agree then to sit up at edge of bed with PT. Pt with more difficulty getting up to sitting than back to supine position. Pt sat at edge of bed for a few minutes. Then he asked to lay back down. Pt back resting in bed and call light within reach and all needs met upon departure. 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) // has a VNS implant which decreased grand mal seizures/ jerking episod weekly Uninodular goiter Urine incontinence Past Surgical History: Procedure Laterality Date CLAVICLE SURGERY COLONOSCOPY CYSTOCELE REPAIR 2016 EXCHANGE STIMULATOR BATTERY VAGAL NERVE N/A 03/23/2020 Performed by Nicola Mahan MD at [facility] 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 2004 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 REPAIR 7 months old SMALL INTESTINE SURGERY 1985, 1992, 1993 s/p diverticulitis; bowel obstruction x 2 PT Treatment/Interventions: Functional transfer training, Bed mobility, Patient/family training, Gait training, LE strengthening/ROM, Balance PT Frequency: 5-6days/week PT Duration: 2 weeks Assessment Patient Assessment Therapy Problem List: Decreased balance, Decreased ADL status, Decreased self- care trans, Decreasedmobility, Decreased LE strength Patient Response to Treatment: Tolerated evaluation without adverse reaction Mood/Affect: Appropriate for circumstances Rehab Prognosis: Good, Fair, With continued PT status post acute discharge Visit RN Communication: Yes Medical Record Reviewed: Yes PT Type of Visit: Evaluation Precautions Activity: as tolerated Equipment: IV, NG tube, catheter Telemetry/Talcer: Yes Subjective Physical Therapy Comments: pt kept repeating that he did not want to get up until he had his medicine and that he just stays in bed and wants his medicine. Pain Assessment Pain Assessment: No/denies pain (pt said no when asked if he had pain anywhere) Home Living Type of Home: Other (Comment) ([facility]) Other : pt is a poor historian. Lives in a [facility] and gets help from staff. Prior Function Receives Help From: Other (Comment) (caregivers) Level of Mobility: Needs assistance with ADLs or functional transfers or gait Homemaking Assistance: Needs assistance Other: Pt states he stays in bed most days and sometimes will get in a wheelchair. Hearing / Speech / Vision Hearing: Within Functional Limits Cognition Orientation Level: Oriented to person Sensation Overall Sensation Status: (pt did not c/o numbness or tingling.) Bed Mobility Rolling: Min assist, Mod assist Supine to Sit: Mod assist, Max assist Sit to Supine: Min assist, Mod assist Transfers Sit to Stand: Unable to assess Stand to Sit: Unable to assess Bed to Chair: Unable to assess Other: pt did not want to get up until he had his medicine, but agreed to sit up at ege of bed today. Gait Gait Assistance: Unable to assess Balance Sitting Balance: Static: Fair Sitting Balance: Dynamic: Fair RLE Assessment: (ROM limited and fair strength) LLE Assessment: (ROM limited and fair strength) Activity Tolerance Endurance: Tolerates <30 minutes activity WITHOUT vital sign changes Plan Physical Therapy Care Plan Physical Therapy Care Plan (Active) Template: PT - Physical Therapy Problem: Bed Mobility Dates: Start: 10/18/24 Disciplines: PT Goal: Patient will perform bed mobility with Contact Guard Dates: Start: 10/18/24 Expected End: 11/01/24 Disciplines: PT Problem: Gait Dates: Start: 10/18/24 Disciplines: PT Goal: Patient will perform gait with Moderate Assist Dates: Start: 10/18/24 Expected End: 11/01/24 Description: If able, pt will be able to ambulate 5-10 feet with least restrictive device safely. Disciplines: PT Problem: Standing Balance Dates: Start: 10/18/24 Disciplines: PT Goal: Other sitting and standing balance goal (customize) Dates: Start: 10/18/24 Expected End: 11/01/24 Description: Goal Description:Improve sitting balance to good minus and standing balance if able tofair for safety of functional mobility. Disciplines: PT Problem: Strength Dates: Start: 10/18/24 Disciplines: PT Goal: Improve strength Dates: Start: 10/18/24 Expected End: 11/01/24 Description: Of extremity/ location:Improve strength to fair plus for safety of transfers Disciplines: PT Problem: Transfers Dates: Start: 10/18/24 Disciplines: PT Goal: Patient will perform transfers with Minimum Assist Dates: Start: 10/18/24 Expected End: 11/01/24 Disciplines: PT Physical Therapy Care Plan (Resolved) There are no resolved problems. Principal Problem: Small bowel obstruction (CMS-HCC) Active Problems: Seizures (CMS-HCC) Mental retardation Class 2 obesity due to excess calories with body mass index (BMI) of 36.0 to 36.9 in adult Urinary retention Hypomagnesemia [facility]08-15-2025 Plan of care note* Plan of Care - Nola Solo RN - 10/17/2024 11:39 PM EDT Problem: Pain Goal: Patient goal is pain score less than 4, able to rest, and participant in treatment plan as appropriate Description: INTERVENTIONS: 1. Encourage patient or legal mortician supplies sales representative to report early pain and ask [...] per policy 9. Teach patient or legal mortician supplies sales representative interventions for comforting Outcome: Progressing Note: Pt able to report pain according to 0/10 pain scale. Medicating patient for pain per orders. Problem: Knowledge Deficit Goal: Patient/patient mortician supplies sales representative demonstrates understanding of disease process, treatment plan,medications, and discharge instructions Description: INTERVENTIONS 1. Complete learning assessment and assess knowledge base 2. Provide teaching at level of understanding 3. Provide teaching via preferred learning method(s) Outcome: Progressing Note: POC discussed with patient. Questions answered PRN. Problem: Moderate - High Risk Fall Score Description: [place] Fall Score of =/> 25 or indicated by [facility] Assessment Goal: Patient should be free from fall Description: Interventions: 1. [place] to environment 2. Hourly rounds addressing the [...] non-skid footwear 11. Teach patient and patient mortician supplies sales representative to maintain environment for safety and [...] (cane, walker) within reach 19. Request patient mortician supplies sales representative bring adaptive equipment/mobility aids from home or obtain and provide as needed 20. Consult pharmacy regarding effects of med's affecting mobility, cognition, and alternatives 21. Obtain physician order for PT if risk factors associated with mobility are present 22. Obtain physician order for OT as appropriate 23. Utilize diversional activities 24. Educate patient and patient mortician supplies sales representative how to maintain a safe environment during visitationtimes (notify nurse prior to leaving bedside) 25. Consider appropriateness of medical or non-lead medical technologist 26. Set up voiding schedule as appropriate (every 2 hours) Outcome: Progressing Note: Pt remains free from falls or accidental injury during stay. Fall prevention measures in place. Hourly rounding per RN and maintained. Dang Le [id number] Progress note* Discharge Planning Note - Lavinia Holder RN - 10/17/2024 2:02 PM EDT Ongoing Assessment for Discharge Needs Reviewed discharge milestones and patient needs related to discharge plan. Current estimated discharge date of Oct 18, 2024 has been reviewed by treatment team. Ongoing Assessment for Discharge Needs Flowsheet Row Most Recent Value Services Requested Patient expects to be discharged to: [facility] Does the patient wish to have family/friend/caregiver involved in their discharge planning? Yes Does the patient plan to return home to a community setting? Yes Has the family/friend/caregiver been assessed to determine their readiness, skills, capacities, andresources to provide post hospital care? Yes, Caregiver Assessment Completed Discharge Disposition Correction Correction Name Anthonyurmila [address] [address] Fax to [facility] [phone] - Victorina (nurse) Does the patient need discharge transportation arranged? Yes Transportation Arranged [place] DC Planning Complete Discharge Milestones Yes Respiratory Indicator Does the patient currently have home respiratory equipment? No Will the patient need home respiratory equipment upon discharge? No, it is expected that patient will NOT discharge home with respiratory DME needs CN called and left voicemail for Susan (guardian/sister). Per provider notes, patient may be discharged this weekend. CN called and spoke to [facility] supervisor smoke control. Patient may return this weekend but will need transportation back to [facility]. Nursing to call report to [facility] weekend med-pass nurse. sandra Coronel-pass nurse will be available (6:40am-9:00am) and (3:00pm-7:00pm) both Sunday10/18/24 and Sunday10/19/24. - Lavinia Holder RN 10/17/24 2:07 PM [facility]08-15-2025 Plan of care note* Plan of Care - Elliott Cabrera RN - 10/17/2024 12:08 PM EDT Problem: Safety Goal: Patient will be injury free during hospitalization Description: INTERVENTIONS: 1. Assess patient's risk for falls and implement fall prevention plan of care per policy 2. Provide and maintain a safe environment 3. Proper use of double Identifiers 4. Medication administration using the 5 rights 5. Hand hygiene 6. Specimens are labeled at the bedside 7. Instruct patient/ patient mortician supplies sales representative about use of safety devices 8. Include patient/ patient mortician supplies sales representative in decisions related to safety Outcome: Progressing Note: Assessed patient's risk for falls and implemented fall prevention plan of care per protocol. Provided and maintained a safe environment. Used proper use of double Identifiers Problem: Potential for Compromised Skin Integrity Goal: Skin integrity is maintained or improved Description: Patient's goal is: INTERVENTIONS 1. Perform initial skin assessment on admission and as needed 2. Turn patient every 2 hours and PRN 3. Relieve pressure to bony prominences 4. Avoid shearing 5. Keep skin clean and dry 6. Alternate a full bath with partial baths for elderly 7. Apply lotion/moisturizer on skin 8. Monitor patient's hygiene practices 9. Float heels 10. Collaborate with interdisciplinary team and initiate plans and interventions as needed Outcome: Progressing Note: Performed initial skin assessment on admission and as needed. Turned patient every 2 hours and PRN.Relieved pressure to bony prominences. Avoided shearing. Kept skin clean and dry. Problem: Urinary Incontinence Goal: Perineal skin integrity [...] and interventions as needed Outcome: Progressing Note: Assessed genitourinary system, perineal skin, labs (urinalysis), and kept skin clean and dry . [facility]08-14-2025 Plan of care note* Plan of Care - Valeria Maddox RN - 10/16/2024 11:20 PM EDT Problem: Gastrointestinal - Adult Goal: Maintains or returns to baseline bowel function Description: Patient's goal is: INTERVENTIONS: 1. Assess bowel function 2. Encourage oral fluids to ensure adequate hydration 3. Administer IV fluids as ordered to ensure adequate hydration 4. Administer ordered medications as needed 5. Encourage mobilization and activity 6. Nutrition consult to assist patient with appropriate food choices 7. Nasogastric tube to suction as ordered Outcome: Progressing Note: Bowel sounds present. Large bowel movement today. NGT right nares clamped greater than 12 hours. Patient tolerating well without nausea or worsening distention. Continue to provide care per plan and update physician as needed per ongoing nursing assessment. T [facility]08-14-2025 Progress note* Query Response - Sanam Guido MD - 10/16/2024 6:55 PM EDT Query Response Note CDI QUERY TEXT: Bowel Obstruction Specificity [id number] Dear Dr. Guido, (Small/Large) Bowel Obstruction is documented in the medical record. Please could you further specify location, underlying cause, and type of bowel obstruction, such as: LOCATION: - Large intestine, specify segment if known - Small intestine, specify segment if known CAUSE: - Adhesions - Hernia - Malignancy, specify malignant site and whether primary or metastatic - Postoperative, specify if due to surgical procedure or expected outcome of procedure - Other cause or condition, please specify - Unable to determine - Unknown TYPE: - Complete - Incomplete - Partial - Other, please specify - Other complication (specify) - Unable to determine - Unknown The patient's Clinical Indicators include: Bowel obstruction has been documented in the medical record X ray of the abdomen shows: 1. Fluid-filled mildly dilated proximal small bowel loops and distention of the stomach represent evolving small bowel obstruction or ileus. Consider Gastrografin challenge. Inna Ruelas, FLORIAN, BEATER HEAD, CDIP Clinical Documentation Integrity [employer] Clinical Revenue Cycle CDI RESPONSE TEXT: Partial small-bowel obstruction Query created by: Inna Cornelius on 10/16/2024 2:41 PM Electronically signed by: Sanam Guido MD 10/16/2024 6:52 PM [facility] Progress note* Discharge Planning Note - Gloria Rodriguez - 10/16/2024 3:33 PM EDT DISCHARGE PLANNING NOTE October 28 at 11:30am Hospital follow up with [facility]SON [facility]OR [id number] Hospital Discharge instructions* Appointments * Gloria Rodriguez - 10/16/2024 3:33 PM EDT YOUR SCHEDULED APPOINTMENTS Please make note of this in your schedule as to not miss or call to reschedule. Thank you! October 28 at 11:30am Hospital follow up with CARSON DIOR MD PCP - General Family Medicine [phone] [place] [address] [address] [facility] [id number] Pt. should bring the following to appointment; Discharge paperwork Picture ID, Insurance card, co-pay, and all current medications in their bottles. Please provide a 24 hour notice for cancellation. Failure to do so will result in the practice declining to see pt. in the future. If you have insurance copay you must bring with you to the appointment. Please arrive about 15 minutes prior to appointment for check-in/registration. For NEW PATIENT APPOINTMENTS, please arrive 30 minutes early to complete new patient paperwork. For NEW patients, MD will not prescribe watermaster pain medication. [facility] Consult note* NNEKA Chaidez - 10/16/2024 12:35 PM EDT NUTRITION ADULT INITIAL EVALUATION NUTRITION ASSESSMENT Reason To Be Seen: Per dx of bowel obstruction Hospital Occurrences: Pt admitted with SBO, Hx of MRDD, seizure disorder. Admit Diagnosis: Patient Active Problem List Diagnosis Seizures ([facility]) Mental retardation Class 2 obesity due to excess calories with body mass index (BMI) of 36.0 to 36.9 in adult Balance problem Osteoarthritis Left arm weakness Bowel obstruction ([facility]) Eczema Preventative health care BPH (benign prostatic hyperplasia) Osteopenia Seborrheic dermatitis Medicare annual wellness visit, subsequent Vitamin D deficiency Respiratory crackles Hospital discharge follow-up Small bowel obstruction ([facility]) Urinary retention Past Medical History: Past Medical History: Diagnosis Date Abdominal hernia large but surgical risk Abnormal result of iron profile testing chronic ds Allergic Allergic rhinitis Balance problem falls with several fx// wears helment for protection Bowel obstruction ([facility]) 2016 and Oct BPH (benign prostatic hyperplasia) sees urology 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) // has a VNS implant which decreased grand mal seizures/ jerking episod weekly Uninodular goiter Urine incontinence Past Surgical History: Past Surgical History: Procedure Laterality Date CLAVICLE SURGERY COLONOSCOPY CYSTOCELE REPAIR 2016 EXCHANGE STIMULATOR BATTERY VAGAL NERVE N/A 03/23/2020 Performed by Nicola Mahan MD at [facility] 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 2005 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 REPAIR 7 months old SMALL INTESTINE SURGERY 1985, 1992, 1993 s/p diverticulitis; bowel obstruction x 2 Diet History: NPO Allergies: Allergies Allergen Reactions Penicillins Hives, Shortness Of Breath, Angioedema, Other (See Comments), Rash and Swelling Sodium Hypochlorite Hives and Itching Bleach (Sodium Hypochlorite) Itching Tree Nuts Clindamycin Rash Nutrition Focused Physical Findings-- No evidence of muscle wasting/malnutrition. As per nutrition flow sheet- Skin: Skin Color: Pale (10/16/24 0750) Skin Temp: Warm, Dry (10/16/24 0750) Wound: Gastrointestinal: Abdomen Assessment: Distended, Rounded, Obese (10/16/24 0750) Last BM Date: 10/15/24 (10/16/24 0750) Passing Flatus: Yes (10/16/24 0750) RUQ Bowel Sounds: Hypoactive (10/16/24 0750) LUQ Bowel Sounds: Hypoactive (10/16/24 0750) RLQ Bowel Sounds: Hypoactive (10/16/24 0750) LLQ Bowel Sounds: Hypoactive (10/16/24 0750) GI Symptoms: Distention (10/16/24 0750) Relieved by: Other (Comment) (here for sbo has ng) (10/16/24 0750) Edema: Labs: Results from last 3 days Lab Units 10/16/24 0529 10/15/24 0557 10/14/24 1451 SODIUM mmol/L 142 142 137 POTASSIUM mmol/L 3.9 3.9 3.6 CHLORIDE mmol/L 114* 109 107 CO2 mmol/L 19* 23 21* BUN mg/dL 20 28* 32* CREATININE mg/dL 0.77 0.97 1.17 CALCIUM mg/dL 8.2* 8.5 9.4 ALBUMIN g/dL 3.0* 3.5 4.4 ALK PHOS U/L 107 126 156* ALT U/L 16 21 28 AST U/L 14 16 22 Results from last 7 days Lab Units 10/16/24 0529 10/15/24 0557 10/14/24 1451 10/13/24 0531 10/12/24 0759 10/12/24 0515 10/12/24 0509 BEDSIDE GLUCOSE mg/dL -- -- -- -- 86 95 -- GLUCOSE mg/dL 83 108* 122* 95 -- -- 99 Results from last 3 days Lab Units 10/16/24 0529 10/15/24 0557 10/14/24 1451 MAGNESIUM mg/dL 1.7* 2.4 1.8 No data from last 3 days. Results from last 3 days Lab Units 10/16/24 0810 10/15/24 0557 10/14/24 1325 WBC x10E9/L 7.2 11.4* 14.4* HEMOGLOBIN g/dL 11.6* 12.8* 14.9 HEMATOCRIT % 34.1* 38.0* 44.5 PLATELETS X10E9/L 181 251 354 MCV fL 95 95 95 Lab Results Component Value Date [id number] 157 (L) 04/09/2023 Lab Results Component Value Date FOLATE >25.0 04/09/2023 Lab Results Component Value Date IRON 35 (L) 04/09/2023 TIBC 190 (L) 04/09/2023 FERRITIN 72 04/09/2023 Lab Results Component Value Date IRONSAT 18 (L) 04/09/2023 No results found for: HGBA1C No results found for: CHOL No results found for: HDL , LDL No results found for: LIPIDPROF No results found for: VIDHYDROX Medications/ Parenteral: Medications Prior to Admission Medication Sig Dispense Refill Last Dose/Taking acetaminophen (TYLENOL EXTRA STRENGTH) 500 mg tablet Take 1 tablet (500 mg total) by mouth every 6 (six) hours as needed for pain. 30 tablet 0 Past Week albuterol (PROVENTIL HFA;VENTOLIN HFA) 90 mcg/actuation inhaler Inhale 2 puffs every 4 (four) hoursas needed for wheezing. 18 g 0 Past Week benzonatate (TESSALON PERLES) 100 mg capsule Take 1 capsule (100 mg total) by mouth 3 (three) timesa day as needed for cough. Past Week TAYE-GEST ANTACID 200 mg calcium (500 mg) chewable tablet Chew 1 tablet (200 mg total) and swallow in the morning and 1 tablet (200 mg total) before bedtime. 10/13/2024 carbamide peroxide (DEBROX) 6.5 % otic solution Apply 4 ggt to both ear nightly once a month . Cotton ball then in am rinse with body temperature water using syringe in kit 15 mL 0 Past Week cholecalciferol, vitamin D3, (cholecalciferol) 1,000 units tablet Take 1 tablet (1,000 Units total)by mouth daily. 90 tablet 1 10/13/2024 cyanocobalamin 1000 MCG tablet Take 1 tablet (1,000 mcg total) by mouth in the morning. 30 tablet 10/13/2024 finasteride (PROSCAR) 5 mg tablet Take 1 tablet (5 mg total) by mouth daily. 90 tablet 1 10/13/2024 hydrOXYzine (ATARAX) 25 mg tablet Take 1 tablet (25 mg total) by mouth every 12 (twelve) hours as needed for itching. Past Week lamoTRIgine (LaMICtal) 200 mg tablet Take 2 tablets (400 mg total) by mouth every morning. 10/13/2024 lamoTRIgine (LaMICtal) 200 mg tablet Take 3 tablets (600 mg total) by mouth nightly. 10/13/2024 latanoprost (XALATAN) 0.005 % ophthalmic solution Administer 1 drop to both eyes nightly. 10/13/2024 levETIRAcetam (KEPPRA) 1000 mg tablet Take 2 tablets (2,000 mg total) by mouth once daily at bedtime. 30 tablet 0 10/13/2024 levETIRAcetam (KEPPRA) 750 mg tablet Take 2 tablets (1,500 mg total) by mouth in the morning. 30 tablet 0 10/13/2024 LINZESS 145 mcg capsule Take 1 capsule (145 mcg total) by mouth every morning before breakfast. 10/13/2024 LORazepam (ATIVAN) 0.5 mg tablet Take 1 tablet (0.5 mg total) by mouth every 8 (eight) hours as needed for anxiety. Past Week magnesium oxide (MAGOX) 400 mg tablet Take 1 tablet (400 mg total) by mouth in the morning. 30 tablet 0 10/13/2024 meclizine (ANTIVERT) 25 mg tablet Take 1 tablet (25 mg total) by mouth daily. 30 tablet 0 10/13/2024 melatonin 3 mg capsule Take 1 capsule by mouth nightly as needed (insomnia). Past Week olopatadine (PATADAY) 0.2 % drops Instill 1 drop to eye in the morning. 10/13/2024 pantoprazole (PROTONIX) 40 mg EC tablet Take 1 tablet (40 mg total) by mouth in the morning. 10/13/2024 primidone (MYSOLINE) 250 mg tablet Take 1 tablet (250 mg total) by mouth in the morning. 10/13/2024 primidone (MYSOLINE) 250 mg tablet Take 1.5 tablets (375 mg total) by mouth nightly. 10/13/2024 SENEXON-S 8.6-50 mg Take 2 tablets by mouth in the morning. 10/13/2024 tamsulosin (FLOMAX) 0.4 mg capsule,extended release 24hr Take 1 capsule (0.4 mg total) by mouth 2 (two) times a day. 180 capsule 1 10/13/2024 VIMPAT 150 mg tablet Take 1 tablet (150 mg total) by mouth 2 (two) times a day. 60 each 0 10/13/2024 diazePAM (DIASTAT ACUDIAL) 5-7.5-10 mg rectal kit Insert 20 mg into the rectum as needed for seizures (seizure > 15 minutes). (Patient not taking: Reported on 10/14/2024) Past Month ondansetron ODT (ZOFRAN-ODT) 4 mg disintegrating tablet Dissolve 1 tablet (4 mg total) on tongue every 12 (twelve) hours as needed for nausea or vomiting. (Patient not taking: Reported on 10/14/2024) 60 tablet 1 Past Month polyethylene glycol (GLYCOLAX) 17 gram packet Take 17 g by mouth 2 (two) times a day as needed (constipation). (Patient not taking: Reported on 10/14/2024) Past Month Current Facility-Administered Medications Medication Dose Route Frequency Provider Last Rate Last Admin acetaminophen (TYLENOL) tablet 650 mg 650 mg nasogastric Q6H PRN Shruthi Ragle, PROGRAM DIR-PATTERN PAINTER dextrose (GLUTOSE) 40 % gel 15 g 15 g oral PRN Shruthi Ragle, PROGRAM DIR-PATTERN PAINTER dextrose 50 % in water (D50W) 50% solution 25 mL 25 mL intravenous PRN Shruthi Ragle, PROGRAM DIR-PATTERN PAINTER enoxaparin (LOVENOX) syringe 40 mg 40 mg subcutaneous Daily Shruthi Rodriguez PROGRAM DIR- PATTERN PAINTER 40 mg at 10/16/24 0917 famotidine (PF) (PEPCID) injection 20 mg 20 mg intravenous Q12H [facility] Sanam Guido MD 20 mg at10/16/24 0917 glucagon HCL injection 1 mg 1 mg intramuscular PRN Shruthi Rodriguez, PROGRAM DIR-PATTERN PAINTER levETIRAcetam (KEPPRA) 1,000 mg in sodium chloride 0.9 % 110 mL IVPB 1,000 mg intravenous Q12H Carmelita Randall MD Stopped at 10/16/24 0938 levoFLOXacin (LEVAQUIN) IVPB 750 mg/150 mL in dextrose 5% (5 mg/mL premix) 750 mg intravenous Q24H Sanam Guido MD Stopped at 10/15/24 1706 LORazepam (ATIVAN) injection 1 mg 1 mg intravenous Q6H PRN Shruthi Rodriguez, PROGRAM DIR-PATTERN PAINTER magnesium sulfate IVPB 2000 mg/50 mL in iso-osmotic water (40 mg/mL premix) 2,000 mg intravenous PRN Shruthi Rodriguez, PROGRAM DIR-PATTERN PAINTER Stopped at 10/15/24 0207 magnesium sulfate IVPB 4000 mg/100 mL in iso-osmotic water (40 mg/mL premix) 4,000 mg intravenous PRN Shruthi Rodriguez, PROGRAM DIR-PATTERN PAINTER metroNIDAZOLE (FLAGYL) IVPB 500 mg/100 mL in iso-osmotic sodium chloride (5 mg/mL premix) 500 mg intravenous Q12H Irwin Ge DO Stopped at 10/16/24 1239 ondansetron (PF) (ZOFRAN) injection 4 mg 4 mg intravenous Q6H PRN Shruthi Rodriguez, PROGRAM DIR-PATTERN PAINTER potassium chloride (KLOR-CON M 20) CR tablet 20-40 mEq 20-40 mEq oral PRN Shruthi Ragle, PROGRAM DIR-PATTERN PAINTER Or potassium chloride (KAYCIEL) 20 mEq/15 mL solution 20-40 mEq 20-40 mEq oral PRN Shruthi Ragle, PROGRAM DIR-PATTERN PAINTER Or potassium chloride IVPB 10 mEq/100 mL in water (0.1 mEq/mL premix) 10 mEq intravenous PRN Shruthi Rodriguez, PROGRAM DIR-PATTERN PAINTER Stopped at 10/14/24 2330 sennosides-docusate sodium (SENOKOT-S) 8.6-50 mg 1 tablet 1 tablet oral Q12H PRN RALPH Ivey sodium chloride 0.9 % flush 10 mL 10 mL intravenous PRN Dian Randall MD 10 mL at 10/14/24 1408 sodium chloride 0.9 % flush 20 mL 20 mL intravenous Q12H Dian Randall MD 20 mL at 10/16/24 0310 And sodium chloride 0.9 % flush 20 mL 20 mL intravenous PRN Dian Randall MD And sodium chloride 0.9 % flush 40 mL 40 mL intravenous PRN Dian Randall MD sodium chloride 0.9 % flush 3 mL 3 mL intravenous PRN Dian Randall MD sodium chloride 0.9 % flush bag 25 mL intravenous PRN RALPH Ivey sodium chloride 0.9 % infusion 75 mL/hr intravenous Continuous Sanam Guido MD 75 mL/hr at 10/16/24 0438 75 mL/hr at 10/16/24 0438 sodium chloride 0.9 % radiology injection 80 mL intravenous Once in imaging Dian Randall MD Nutrition Findings/Summary: noted stable weights Anthropometrics: Ht Readings from Last 1 Encounters: 10/14/24 167.6 cm (5' 5.98 ) Wt Readings from Last 10 Encounters: 10/16/24 100.2 kg (221 lb) 10/12/24 103 kg (227 lb 1.2 oz) 10/09/24 99.8 kg (220 lb) 04/20/23 80 kg (176 lb 5.9 oz) 04/07/23 78.7 kg (173 lb 8 oz) 02/15/23 81.7 kg (180 lb 3.2 oz) 01/29/21 99.6 kg (219 lb 8 oz) 05/14/20 88.3 kg (194 lb 11.2 oz) 05/07/20 84.4 kg (186 lb) 03/18/20 84.5 kg (186 lb 3.2 oz) [place] Body Weight: 64 kg Percent [place] Body Weight: 156 % Body Mass Index: Body mass index is 35.69 kg/m . BMI Category: Obese class 2 (35.00- 39.99) Diet/ Nutrition Order Review: Dietary Orders (From admission, onward) Start Ordered 10/14/24 1555 Adult diet NPO Diet effective now Question: Diet Type: Answer: NPO 10/14/24 1552 Diet Intakes: npo [] 75-100% [] 50-75% [] 25-50% [] <25% [] NPO [] Unable to assess Intake/ Output Last 24 hrs: Intake/Output Summary (Last 24 hours) at 10/16/2024 1236 Last data filed at 10/16/2024 0905 Gross per 24 hour Intake 1152.99 ml Output 600 ml Net 552.99 ml Oral Supplemental Intake/ Acceptance: npo [] 75-100% [] 50-75% [] 25-50% [] <25% [] NPO [] Unable to assess [place] Body Weight (64 kg) used to estimate nutrition needs Estimated Energy Needs: ~7244-4909 kcals daily. Method and weight used: 25-32 kcal/kg IBW Estimated Protein Needs: ~77-128 grams daily. Method and weight used: 1.2-2.0 gm/kg IBW Estimated Fluid Needs: ~9541-3914 ml daily. Method Used: 1 ml/kcal General Needs: Malnutrition Status: Malnutrition Present: No NUTRITION DIAGNOSIS: Intake Diagnosis: Inadequate protein-energy intake (NI 5.3) related to altered GI function as evidenced by NPO status and bowel obstruction. NUTRITION INTERVENTIONS: Coordination of nutrition care: spoke with RNKathy Meals & snacks: suggest to advance diet with a GI soft diet as tolerated GOALS: Patient to meet calorie and protein needs NUTRITION MONITORING AND EVALUATION: Will monitor diet progression, Weights, Nutrition Related Labs, POC & Follow. [x] Progressing toward goal [] Not progressing [] Progress toward goal declining [] Goal achieved Melba Linton RD.,LD. Clinical Dietitian [facility] [phone] 10/16/24 [facility] Work Phone: [phone]) [phone] Consult note* NNEKA Chaidez - 10/16/2024 12:35 PM EDT NUTRITION ADULT INITIAL EVALUATION NUTRITION ASSESSMENT Reason To Be Seen: Per dx of bowel obstruction Hospital Occurrences: Pt admitted with SBO, Hx of MRDD, seizure disorder. Admit Diagnosis: Patient Active Problem List Diagnosis Seizures ([facility]) Mental retardation Class 2 obesity due to excess calories with body mass index (BMI) of 36.0 to 36.9 in adult Balance problem Osteoarthritis Left arm weakness Bowel obstruction ([facility]) Eczema Preventative health care BPH (benign prostatic hyperplasia) Osteopenia Seborrheic dermatitis Medicare annual wellness visit, subsequent Vitamin D deficiency Respiratory crackles Hospital discharge follow-up Small bowel obstruction ([facility]) Urinary retention Past Medical History: Past Medical History: Diagnosis Date Abdominal hernia large but surgical risk Abnormal result of iron profile testing chronic ds Allergic Allergic rhinitis Balance problem falls with several fx// wears helment for protection Bowel obstruction ([facility]) 2017 Apr and Oct BPH (benign prostatic hyperplasia) sees urology 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(jerking motions) // has a VNS implant which decreased grand mal seizures/ jerking episod weekly Uninodular goiter Urine incontinence Past Surgical History: Past Surgical History: Procedure Laterality Date CLAVICLE SURGERY COLONOSCOPY CYSTOCELE REPAIR 2016 EXCHANGE STIMULATOR BATTERY VAGAL NERVE N/A 03/23/2020 Performed by Nicola Mahan MD at 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 2004 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 REPAIR 7 months old SMALL INTESTINE SURGERY 1985, 1992, 1993 s/p diverticulitis; bowel obstruction x 2 Diet History: NPO Allergies: Allergies Allergen Reactions Penicillins Hives, Shortness Of Breath, Angioedema, Other (See Comments), Rash and Swelling Sodium Hypochlorite Hives and Itching Bleach (Sodium Hypochlorite) Itching Tree Nuts Clindamycin Rash Nutrition Focused Physical Findings-- No evidence of muscle wasting/malnutrition. As per nutrition flow sheet- Skin: Skin Color: Pale (10/16/24 075) Skin Temp: Warm, Dry (10/16/24749) Wound: Gastrointestinal: Abdomen Assessment: Distended, Rounded, Obese (10/16/24 075) Last BM Date: 10/15/24 (10/16/24 075) Passing Flatus: Yes (10/16/24749) RUQ Bowel Sounds: Hypoactive (10/16/24749) LUQ Bowel Sounds: Hypoactive (10/16/24749) RLQ Bowel Sounds: Hypoactive (10/16/24749) LLQ Bowel Sounds: Hypoactive (10/16/24749) GI Symptoms: Distention (10/16/24749) Relieved by: Other (Comment) (here for sbo has ng) (10/16/24749) Edema: Labs: Results from last 3 days Lab Units 10/16/24 0529 10/15/24 0557 10/14/24 1451 SODIUM mmol/L 142 142 137 POTASSIUM mmol/L 3.9 3.9 3.6 CHLORIDE mmol/L 114* 109 107 CO2 mmol/L 19* 23 21* BUN mg/dL 20 28* 32* CREATININE mg/dL 0.77 0.97 1.17 CALCIUM mg/dL 8.2* 8.5 9.4 ALBUMIN g/dL 3.0* 3.5 4.4 ALK PHOS U/L 107 126 156* ALT U/L 16 21 28 AST U/L 14 16 22 Results from last 7 days Lab Units 10/16/24 0529 10/15/24 0557 10/14/24 1451 10/13/24 0531 10/12/24 0759 10/12/24 0515 10/12/24 0509 BEDSIDE GLUCOSE mg/dL -- -- -- -- 86 95 -- GLUCOSE mg/dL 83 108* 122* 95 -- -- 99 Results from last 3 days Lab Units 10/16/24 0529 10/15/24 0557 10/14/24 1451 MAGNESIUM mg/dL 1.7* 2.4 1.8 No data from last 3 days. Results from last 3 days Lab Units 10/16/24 0810 10/15/24 0557 10/14/24 1325 WBC x10E9/L 7.2 11.4* 14.4* HEMOGLOBIN g/dL 11.6* 12.8* 14.9 HEMATOCRIT % 34.1* 38.0* 44.5 PLATELETS X10E9/L 181 251 354 MCV fL 95 95 95 Lab Results Component Value Date [id number] 157 (L) 04/09/2023 Lab Results Component Value Date FOLATE >25.0 04/09/2023 Lab Results Component Value Date IRON 35 (L) 04/09/2023 TIBC 190 (L) 04/09/2023 FERRITIN 72 04/09/2023 Lab Results Component Value Date IRONSAT 18 (L) 04/09/2023 No results found for: HGBA1C No results found for: CHOL No results found for: HDL , LDL No results found for: LIPIDPROF No results found for: VIDHYDROX Medications/ Parenteral: Medications Prior to Admission Medication Sig Dispense Refill Last Dose/Taking acetaminophen (TYLENOL EXTRA STRENGTH) 500 mg tablet Take 1 tablet (500 mg total) by mouth every 6 (six) hours as needed for pain. 30 tablet 0 Past Week albuterol (PROVENTIL HFA;VENTOLIN HFA) 90 mcg/actuation inhaler Inhale 2 puffs every 4 (four) hoursas needed for wheezing. 18 g 0 Past Week benzonatate (TESSALON PERLES) 100 mg capsule Take 1 capsule (100 mg total) by mouth 3 (three) timesa day as needed for cough. Past Week TAYE-GEST ANTACID 200 mg calcium (500 mg) chewable tablet Chew 1 tablet (200 mg total) and swallow in the morning and 1 tablet (200 mg total) before bedtime. 10/13/2024 carbamide peroxide (DEBROX) 6.5 % otic solution Apply 4 ggt to both ear nightly once a month . Cotton ball then in am rinse with body temperature water using syringe in kit 15 mL 0 Past Week cholecalciferol, vitamin D3, (cholecalciferol) 1,000 units tablet Take 1 tablet (1,000 Units total)by mouth daily. 90 tablet 1 10/13/2024 cyanocobalamin 1000 MCG tablet Take 1 tablet (1,000 mcg total) by mouth in the morning. 30 tablet 10/13/2024 finasteride (PROSCAR) 5 mg tablet Take 1 tablet (5 mg total) by mouth daily. 90 tablet 1 10/13/2024 hydrOXYzine (ATARAX) 25 mg tablet Take 1 tablet (25 mg total) by mouth every 12 (twelve) hours as needed for itching. Past Week lamoTRIgine (LaMICtal) 200 mg tablet Take 2 tablets (400 mg total) by mouth every morning. 10/13/2024 lamoTRIgine (LaMICtal) 200 mg tablet Take 3 tablets (600 mg total) by mouth nightly. 10/13/2024 latanoprost (XALATAN) 0.005 % ophthalmic solution Administer 1 drop to both eyes nightly. 10/13/2024 levETIRAcetam (KEPPRA) 1000 mg tablet Take 2 tablets (2,000 mg total) by mouth once daily at bedtime. 30 tablet 0 10/13/2024 levETIRAcetam (KEPPRA) 750 mg tablet Take 2 tablets (1,500 mg total) by mouth in the morning. 30 tablet 0 10/13/2024 LINZESS 145 mcg capsule Take 1 capsule (145 mcg total) by mouth every morning before breakfast. 10/13/2024 LORazepam (ATIVAN) 0.5 mg tablet Take 1 tablet (0.5 mg total) by mouth every 8 (eight) hours as needed for anxiety. Past Week magnesium oxide (MAGOX) 400 mg tablet Take 1 tablet (400 mg total) by mouth in the morning. 30 tablet 0 10/13/2024 meclizine (ANTIVERT) 25 mg tablet Take 1 tablet (25 mg total) by mouth daily. 30 tablet 0 10/13/2024 melatonin 3 mg capsule Take 1 capsule by mouth nightly as needed (insomnia). Past Week olopatadine (PATADAY) 0.2 % drops Instill 1 drop to eye in the morning. 10/13/2024 pantoprazole (PROTONIX) 40 mg EC tablet Take 1 tablet (40 mg total) by mouth in the morning. 10/13/2024 primidone (MYSOLINE) 250 mg tablet Take 1 tablet (250 mg total) by mouth in the morning. 10/13/2024 primidone (MYSOLINE) 250 mg tablet Take 1.5 tablets (375 mg total) by mouth nightly. 10/13/2024 SENEXON-S 8.6-50 mg Take 2 tablets by mouth in the morning. 10/13/2024 tamsulosin (FLOMAX) 0.4 mg capsule,extended release 24hr Take 1 capsule (0.4 mg total) by mouth 2 (two) times a day. 180 capsule 1 10/13/2024 VIMPAT 150 mg tablet Take 1 tablet (150 mg total) by mouth 2 (two) times a day. 60 each 0 10/13/2024 diazePAM (DIASTAT ACUDIAL) 5-7.5-10 mg rectal kit Insert 20 mg into the rectum as needed for seizures (seizure > 15 minutes). (Patient not taking: Reported on 10/14/2024) Past Month ondansetron ODT (ZOFRAN-ODT) 4 mg disintegrating tablet Dissolve 1 tablet (4 mg total) on tongue every 12 (twelve) hours as needed for nausea or vomiting. (Patient not taking: Reported on 10/14/2024) 60 tablet 1 Past Month polyethylene glycol (GLYCOLAX) 17 gram packet Take 17 g by mouth 2 (two) times a day as needed (constipation). (Patient not taking: Reported on 10/14/2024) Past Month Current Facility-Administered Medications Medication Dose Route Frequency Provider Last Rate Last Admin acetaminophen (TYLENOL) tablet 650 mg 650 mg nasogastric Q6H PRN RALPH Ivey dextrose (GLUTOSE) 40 % gel 15 g 15 g oral PRN RALPH Ivey dextrose 50 % in water (D50W) 50% solution 25 mL 25 mL intravenous PRN RALPH Ivey enoxaparin (LOVENOX) syringe 40 mg 40 mg subcutaneous Daily MICHELLE Ivey CNP 40 mg at 10/16/24 09 famotidine (PF) (PEPCID) injection 20 mg 20 mg intravenous Q12H [facility] Sanam Guido MD 20 mg at10/16/24 09 glucagon HCL injection 1 mg 1 mg intramuscular PRN RALPH Ivey levETIRAcetam (KEPPRA) 1,000 mg in sodium chloride 0.9 % 110 mL IVPB 1,000 mg intravenous Q12H Carmelita Randall MD Stopped at 10/16/24 0938 levoFLOXacin (LEVAQUIN) IVPB 750 mg/150 mL in dextrose 5% (5 mg/mL premix) 750 mg intravenous Q24H Sanam Guido MD Stopped at 10/15/24 1706 LORazepam (ATIVAN) injection 1 mg 1 mg intravenous Q6H PRN Shruthi Ragle, PROGRAM DIR-PATTERN PAINTER magnesium sulfate IVPB 2000 mg/50 mL in iso-osmotic water (40 mg/mL premix) 2,000 mg intravenous PRN Shruthi Ragle, PROGRAM DIR-PATTERN PAINTER Stopped at 10/15/24 0207 magnesium sulfate IVPB 4000 mg/100 mL in iso-osmotic water (40 mg/mL premix) 4,000 mg intravenous PRN Shruthi Ragle, PROGRAM DIR-PATTERN PAINTER metroNIDAZOLE (FLAGYL) IVPB 500 mg/100 mL in iso-osmotic sodium chloride (5 mg/mL premix) 500 mg intravenous Q12H Irwin Ge DO Stopped at 10/16/24 1239 ondansetron (PF) (ZOFRAN) injection 4 mg 4 mg intravenous Q6H PRN Shruthi Ragle, PROGRAM DIR-PATTERN PAINTER potassium chloride (KLOR-CON M 20) CR tablet 20-40 mEq 20-40 mEq oral PRN Shruthi Ragle, PROGRAM DIR-PATTERN PAINTER Or potassium chloride (KAYCIEL) 20 mEq/15 mL solution 20-40 mEq 20-40 mEq oral PRN Shruthi Ragle, PROGRAM DIR-PATTERN PAINTER Or potassium chloride IVPB 10 mEq/100 mL in water (0.1 mEq/mL premix) 10 mEq intravenous PRN Shruthi Ragle, PROGRAM DIR-PATTERN PAINTER Stopped at 10/14/24 2330 sennosides-docusate sodium (SENOKOT-S) 8.6-50 mg 1 tablet 1 tablet oral Q12H PRN Shruthi Ragle, PROGRAM DIR-PATTERN PAINTER sodium chloride 0.9 % flush 10 mL 10 mL intravenous PRN Dian Randall MD 10 mL at 10/14/24 1408 sodium chloride 0.9 % flush 20 mL 20 mL intravenous Q12H Dian Randall MD 20 mL at 10/16/24 0310 And sodium chloride 0.9 % flush 20 mL 20 mL intravenous PRN Dian Randall MD And sodium chloride 0.9 % flush 40 mL 40 mL intravenous PRN Dian Randall MD sodium chloride 0.9 % flush 3 mL 3 mL intravenous PRN Dian Randall MD sodium chloride 0.9 % flush bag 25 mL intravenous PRN Shruthi Rodriguez APRN-PATTERN PAINTER sodium chloride 0.9 % infusion 75 mL/hr intravenous Continuous Sanam Guido MD 75 mL/hr at 10/16/24 0438 75 mL/hr at 10/16/24 0438 sodium chloride 0.9 % radiology injection 80 mL intravenous Once in imaging Dian Randall MD Nutrition Findings/Summary: noted stable weights Anthropometrics: Ht Readings from Last 1 Encounters: 10/14/24 167.6 cm (5' 5.98 ) Wt Readings from Last 10 Encounters: 10/16/24 100.2 kg (221 lb) 10/12/24 103 kg (227 lb 1.2 oz) 10/09/24 99.8 kg (220 lb) 04/20/23 80 kg (176 lb 5.9 oz) 04/07/23 78.7 kg (173 lb 8 oz) 02/15/23 81.7 kg (180 lb 3.2 oz) 01/29/21 99.6 kg (219 lb 8 oz) 05/14/20 88.3 kg (194 lb 11.2 oz) 05/07/20 84.4 kg (186 lb) 03/18/20 84.5 kg (186 lb 3.2 oz) [place] Body Weight: 64 kg Percent [place] Body Weight: 156 % Body Mass Index: Body mass index is 35.69 kg/m . BMI Category: Obese class 2 (35.00- 39.99) Diet/ Nutrition Order Review: Dietary Orders (From admission, onward) Start Ordered 10/14/24 1555 Adult diet NPO Diet effective now Question: Diet Type: Answer: NPO 10/14/24 1552 Diet Intakes: npo [] 75-100% [] 50-75% [] 25-50% [] <25% [] NPO [] Unable to assess Intake/ Output Last 24 hrs: Intake/Output Summary (Last 24 hours) at 10/16/2024 1236 Last data filed at 10/16/2024 0905 Gross per 24 hour Intake 1152.99 ml Output 600 ml Net 552.99 ml Oral Supplemental Intake/ Acceptance: npo [] 75-100% [] 50-75% [] 25-50% [] <25% [] NPO [] Unable to assess [place] Body Weight (64 kg) used to estimate nutrition needs Estimated Energy Needs: ~1344-9307 kcals daily. Method and weight used: 25-32 kcal/kg IBW Estimated Protein Needs: ~77-128 grams daily. Method and weight used: 1.2-2.0 gm/kg IBW Estimated Fluid Needs: ~0808-9869 ml daily. Method Used: 1 ml/kcal General Needs: Malnutrition Status: Malnutrition Present: No NUTRITION DIAGNOSIS: Intake Diagnosis: Inadequate protein-energy intake (NI 5.3) related to altered GI function as evidenced by NPO status and bowel obstruction. NUTRITION INTERVENTIONS: Coordination of nutrition care: spoke with RNKathy Meals & snacks: suggest to advance diet with a GI soft diet as tolerated GOALS: Patient to meet calorie and protein needs NUTRITION MONITORING AND EVALUATION: Will monitor diet progression, Weights, Nutrition Related Labs, POC & Follow. [x] Progressing toward goal [] Not progressing [] Progress toward goal declining [] Goal achieved Melba Linton RD.,LD. Clinical Dietitian [facility] [phone] 10/16/24 * Irwin Ge DO - 10/15/2024 6:59 AM EDTAssociated Order(s): IP CONSULT TO GENERAL SURGERY Images from the original note were not included. [facility] [place] [id number] [facility] [id number] CONSULT NOTE CHIEF COMPLAINT Chief Complaint Patient presents with Diarrhea Loose stools since yesterday, was discharged yesterday from [facility] with small bowel obstruction. Amol Taylor is a 69 y.o. male who presented to the ED yesterday by EMS from group home for evaluation of diarrhea. He was released from [facility] on 10/13/2024 for treatment of a small-bowel obstruction which was treated conservatively with nasogastric tube suction. Prior to discharge he had a small- bowel follow-through (10/11/2024) which showed no evidence of obstruction and he was tolerating a regular diet. He presented to the ED with emesis and a distended abdomen and diarrhea. Patient has an extensive surgical history in that he had intussusception of the bowel at 7 months of age and has had multiple bowel obstructions some treated with surgery. He also has a history of difficult intubation as well as a history of seizure disorder. He resides at a [facility]. He denies any abdominal pain. He knows where he is. Otherwise he can not give much of the history. According to his nurse at the bedside he has had approximately 1500 cc out from his nasogastric tube since admission. Reason for Exam Questionable small bowel obstruction PACS Images Show images for CT abdomen and pelvis with contrast CT abdomen and pelvis with contrast Order: [id number] Status: Final result Next appt: None Test Result Released: No (scheduled for 10/15/2024 1:20 PM) 0 Result Notes Details Reading Physician Reading Date Result Priority Irwin Rivera MD [phone] 10/14/2024 STAT Narrative & Impression STUDY: ABDOMEN AND PELVIS CT WITH CONTRAST CLINICAL HISTORY: Abdominal pain. Small bowel obstruction. Questionable small bowel obstruction COMPARISON: 04/07/2023 TECHNIQUE: CT abdomen and pelvis was performed utilizing 5 mm axial reconstructions following the uneventful administration of 100 cc Omnipaque 300 nonionic intravenous contrast. Coronal and sagittalreformatted images as well as delayed excretory phase images were obtained and reviewed. Automated exposure control was utilized. FINDINGS: Abdomen: No pleural or pericardial effusion and lung bases. Dependent changes and atelectasis in both lungs. Severe distention of the stomach. There is fluid-filled dilated small bowel loops with relatively decompressed distal small bowel loops could represent evolving ileus or obstruction. There is no evidence of free intraperitoneal gas. The liver, adrenal glands, pancreas and spleen appear grossly unremarkable. There is a calcified subcapsular left renal lesion stable likely representing sequela of prior subcapsular hematoma. No renal collecting system dilatation. No enlarged mesenteric or retroperitoneal lymph nodes. Pelvis: No free pelvic fluid. No enlarged pelvic lymph nodes. Urinary bladder is grossly unremarkable. Degenerative change of the thoracolumbar spine. No vertebral body height loss. IMPRESSION: 1. Fluid-filled mildly dilated proximal small bowel loops and distention of the stomach represent evolving small bowel obstruction or ileus. Consider Gastrografin challenge. All CT scans at this facility use dose modulation, iterative reconstruction, and/or weight based dosing when appropriate to reduce radiation dose to as low as reasonably achievable. Finalized by Irwin Rivera MD on 10/14/2024 2:19 PM Exam Ended: 10/14/24 14:14 EDT Last Resulted: 10/14/24 14:19 EDT MEDICATION Current Facility-Administered Medications: acetaminophen (TYLENOL) tablet 650 mg, 650 mg, nasogastric, Q6H PRN, Shruthi Rodriguez APRN-OTONIEL dextrose (GLUTOSE) 40 % gel 15 g, 15 g, oral, PRN, Shruthi Rodriguez APRN-OTONIEL dextrose 5 % (D5W) infusion, 100 mL/hr, intravenous, Continuous PRN, Shruthi Rodriguez APRN-OTONIEL dextrose 50 % in water (D50W) 50% solution 25 mL, 25 mL, intravenous, PRN, Shruthi Rodriguez APRN-OTONIEL famotidine (PF) (PEPCID) injection 20 mg, 20 mg, intravenous, Q12H DAR, Sanam Guido MD, 20 mg at 10/14/242049 glucagon HCL injection 1 mg, 1 mg, intramuscular, PRN, Shruthi Rodriguez APRN-OTONIEL levETIRAcetam (KEPPRA) 1,000 mg in sodium chloride 0.9 % 110 mL IVPB, 1,000 mg, intravenous, Q12H, Dian Randall MD, Stopped at 10/14/24 1925 levoFLOXacin (LEVAQUIN) IVPB 500 mg/100 mL in dextrose 5% (5 mg/mL premix), 500 mg, intravenous, Q24H, Sanam Guido MD, Stopped at 10/14/24 2154 magnesium sulfate IVPB 2000 mg/50 mL in iso-osmotic water (40 mg/mL premix), 2,000 mg, intravenous,PRN, Shruthi Rodriguez APRN-OTONIEL, Stopped at 10/15/24 0207 magnesium sulfate IVPB 4000 mg/100 mL in iso-osmotic water (40 mg/mL premix), 4,000 mg, intravenous, PRN, Shruthi Rodriguez APRN-OTONIEL metroNIDAZOLE (FLAGYL) IVPB 500 mg/100 mL in iso-osmotic sodium chloride (5 mg/mL premix), 500 mg, intravenous, Q12H, Sanam Guido MD, Stopped at 10/14/24 2331 ondansetron (PF) (ZOFRAN) injection 4 mg, 4 mg, intravenous, Q6H PRN, Shruthitamica Jarrellle, PROGRAM DIR-PATTERN PAINTER potassium chloride (KLOR-CON M 20) CR tablet 20-40 mEq, 20-40 mEq, oral, PRN OR potassium chloride (KAYCIEL) 20 mEq/15 mL solution 20-40 mEq, 20-40 mEq, oral, PRN OR potassium chloride IVPB 10 mEq/100 mL in water (0.1 mEq/mL premix), 10 mEq, intravenous, PRN, Shruthitamica Jarrellle, PROGRAM DIR-PATTERN PAINTER, Stoppedat 10/14/24 2330 sennosides-docusate sodium (SENOKOT-S) 8.6-50 mg 1 tablet, 1 tablet, oral, Q12H PRN, Shruthi Weslyle, PROGRAM DIR-PATTERN PAINTER sodium chloride 0.9 % flush 10 mL, 10 mL, intravenous, PRN, Dian Randall MD, 10 mL at 10/14/24 1408 Consult PICC nurse - Midline, , , Once AND sodium chloride 0.9 % flush 20 mL, 20 mL, intravenous, Q12H, 20 mL at 10/14/242049 AND sodium chloride 0.9 % flush 20 mL, 20 mL, intravenous, PRN AND sodium chloride 0.9 % flush 40 mL, 40 mL, intravenous, PRN, Dian Randall MD sodium chloride 0.9 % flush 3 mL, 3 mL, intravenous, PRN, Dian Randall MD sodium chloride 0.9 % flush bag, 25 mL, intravenous, PRN, Shruthi Ragle, PROGRAM DIR-PATTERN PAINTER sodium chloride 0.9 % infusion, 125 mL/hr, intravenous, Continuous, Dian Randall MD, Held at 10/14/24 1125 sodium chloride 0.9 % infusion, 20 mL/hr, intravenous, Continuous PRN, Shruthi Ragle, PROGRAM DIR-PATTERN PAINTER, LastRate: 20 mL/hr at 10/15/24 0307, Rate Verify at 10/15/24 0307 sodium chloride 0.9 % infusion, 75 mL/hr, intravenous, Continuous, Shruthi Rodriguez APRN-PATTERN PAINTER, Last Rate: 75 mL/hr at 10/15/24 0307, Rate Verify at 10/15/24 0307 sodium chloride 0.9 % infusion, 125 mL/hr, intravenous, Continuous, Sanam Guido MD, Held at10/14/24 1505 sodium chloride 0.9 % radiology injection, 80 mL, intravenous, Once in imaging, Dian Randall MD ALLERGY Allergies Allergen Reactions Penicillins Hives, Shortness Of Breath, Angioedema, Other (See Comments), Rash and Swelling Sodium Hypochlorite Hives and Itching Bleach (Sodium Hypochlorite) Itching Tree Nuts Clindamycin Rash MEDICAL HISTORY Past Medical History: Diagnosis Date Abdominal hernia large but surgical risk Abnormal result of iron profile testing chronic ds Allergic Allergic rhinitis Balance problem falls with several fx// wears helment for protection Bowel obstruction ([facility]) 2016 and Oct BPH (benign prostatic hyperplasia) sees urology 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(jerking motions) // has a VNS implant which decreased grand mal seizures/ jerking episod weekly Uninodular goiter Urine incontinence SURGICAL HISTORY Past Surgical History: Procedure Laterality Date CLAVICLE SURGERY COLONOSCOPY CYSTOCELE REPAIR 2016 EXCHANGE STIMULATOR BATTERY VAGAL NERVE N/A 03/23/2020 Performed by Nicola Mahan MD at [facility] 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 2004 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 REPAIR 7 months old SMALL INTESTINE SURGERY 1985, 1992, 1993 s/p diverticulitis; bowel obstruction x 2 SOCIAL HISTORY Social History Socioeconomic History Marital status: Single Spouse name: Not on file Number of children: 0 Years of education: Not on file Highest education level: Not on file Occupational History 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 Tobacco Use Smoking status: Never Smokeless tobacco: Never Substance and Sexual Activity Alcohol use: No Drug use: No Sexual activity: Never Other Topics Concern Not on file Social History Narrative Not on file Social Drivers of Health Financial Resource Strain: Patient Unable To Answer (10/14/2024) Overall Financial Resource Strain (CARDIA) Difficulty of Paying Living Expenses: Patient unable to answer Food Insecurity: Patient Unable To Answer (10/14/2024) Hunger Screening Food Insecurity - Worry: Patient unable to answer Food Insecurity - Inability: Patient unable to answer Transportation Needs: Patient Unable To Answer (10/14/2024) PRAPARE - Transportation Lack of Transportation (Medical): Patient unable to answer Lack of Transportation (Non-Medical): Patient unable to answer Physical Activity: Patient Unable To Answer (10/14/2024) Exercise Vital Sign Days of Exercise per Week: Patient unable to answer Minutes of Exercise per Session: Patient unable to answer Stress: Patient Unable To Answer (10/14/2024) [employer] [place] [employer] - Occupational Stress Questionnaire Feeling of Stress : Patient unable to answer Social Connections: Patient Unable To Answer (10/14/2024) Social Connection and Isolation Panel [NHANES] Frequency of Communication with Friends and Family: Patient unable to answer Frequency of Social Gatherings with Friends and Family: Patient unable to answer Attends Catholic Services: Patient unable to answer Active Member of Clubs or Organizations: Patient unable to answer Attends Club or Organization Meetings: Patient unable to answer Marital Status: Patient unable to answer Interpersonal Safety: Patient Unable To Answer (10/14/2024) Humiliation, Afraid, Rape, and Kick questionnaire Fear of Current or Ex-Partner: Patient unable to answer Emotionally Abused: Patient unable to answer Physically Abused: Patient unable to answer Sexually Abused: Patient unable to answer Housing Instability: Patient Unable To Answer (10/14/2024) Housing Instability Housing Instability: Patient unable to answer FAMILY HISTORY Family History Problem Relation Age of Onset Thyroid cancer Mother Multiple myeloma Mother Arthritis Mother Heart disease Mother Pancreatitis Mother Lung cancer Father Diabetes Sister Hypertension Sister Diabetes Brother Heart disease Brother COPD Brother REVIEW OF SYSTEMS: Constitutional: Denies fevers, denies recent illnesses. Eyes: Denies any vision changes. ENT: Denies any throat pain. Neck: Denies any neck pain. Cardiovascular denies chest pain. Denies palpitations. Respiratory: Denies shortness of breath, denies cough, denies history of asthma or any other pulmonary illnesses. Gastrointestinal: Positive emesis yesterday; none since. Negative for abdominal pain, nausea, melena, hematochezia, weight loss, change in bowel habits or weight loss or emesis. Genitourinary: Has a urinary catheter in place?; negative for dysuria hematuria urinary frequency or urgency. Musculoskeletal: As contractures of upper hands and left lower extremity; Negative for extremity pains or joint discomfort. Neurologic: No change in sensation or paresthesias ; positive history of seizure disorder skin: No rashes. Hematologic: No anemia. No purpura. No petechiae and no prolonged or excessive bleeding Allergic and immunologic: No pruritus. No swelling. Endocrine: No unexplained weight loss. No polydipsia. No polyuria. No polyphagia. PHYSICAL EXAM Constitutional: He is oriented to person, place, and time. Vital signs are normal. He appears well-developed and well-nourished. Does not appear to be in any acute distress. HEENT: Head: Normocephalic and atraumatic. He wears a helmet. Eyes: Conjunctivae, EOM and lids are normal. Neck: Trachea normal. Neck supple. No thyroid mass present. Cardiovascular: Normal rate and regular rhythm. Pulmonary/Chest: Effort normal and breath sounds abnormal with coarse rhonchi throughout all lung matta. Abdominal: Soft. Obese; Normal appearance. He exhibits no distension and no mass. No hernia. Healedmidline incision to the left of the midline and his panniculus resides to the left. Bowel sounds are present. Musculoskeletal: Normal range of motion. Contractures of upper hands and left lower extremity Lymphadenopathy: He has no cervical adenopathy. Neurological: He is alert and oriented to person, place, and time. Skin: Skin is warm, dry and intact. Psychiatric: He has a normal mood and affect. His speech is normal and behavior is normal. As history of MR WINTERS IMPRESSION 1. Small-bowel obstruction 2. History of MR VIANEY 3. History of seizure disorder 4. class 2 obesity with BMI of 36 ASSESSMENT & PLAN 1. NG tube to low intermittent suction 2. Repeat abdominal x-rays tomorrow 3. Recheck chest x-ray to rule out pneumonia or atelectasis leading to ileus and continued problems; last chest x-ray 10/11/2024 which showed possible trace of left pleural effusion. Time spent with patient and reviewing chart:60 minutes Evaluation included: Preparing to see the patient (e.g., review of tests) Obtaining and/or reviewing separately obtained history Performing a medically appropriate examination and/or evaluation Counseling and educating the patient/family/caregiver Referring and communicating with other health career development director - Irwin Ge DO 10/15/24 6:59 AM This note was created with the assistance of a speech recognition program. While intending to generate a timely document that accurately reflects the content of the visit, no guarantee can be provided that every grammatical or spelling mistake has been or will be identified or corrected. Thank you for your understanding. [facility] Progress note* Discharge Planning Note - Lavinia Holder RN - 10/16/2024 11:34 AM EDT Ongoing Assessment for Discharge Needs Reviewed discharge milestones and patient needs related to discharge plan. Current estimated discharge date of Oct 17, 2024 has been reviewed by treatment team. Ongoing Assessment for Discharge Needs Flowsheet Row Most Recent Value Services Requested Patient expects to be discharged to: [facility] Does the patient wish to have family/friend/caregiver involved in their discharge planning? Yes Does the patient plan to return home to a community setting? Yes Has the family/friend/caregiver been assessed to determine their readiness, skills, capacities, andresources to provide post hospital care? Yes, Caregiver Assessment Completed Discharge Disposition [facility] Name [address] [address] Fax to [facility] [phone] - Victorina (nurse) Does the patient need discharge transportation arranged? Yes Transportation Arranged [place] Planning Complete Discharge Milestones Yes Respiratory Indicator Does the patient currently have home respiratory equipment? No Will the patient need home respiratory equipment upon discharge? No, it is expected that patient will NOT discharge home with respiratory DME needs Barriers to dc: small bowel follow through today Discharge plan: [facility]. Patient will need transportation home. Patient's sister Susan is legal guardian. [facility]: [address] [address] [facility]ax to [facility] [phone] - shelly (nurse) Dang Le [id number] Plan of care note* Plan of Care - Kathy Pope RN - 10/16/2024 9:00 AM EDT Problem: Pain Goal: Patient goal is pain score less than 4, able to rest, and participant in treatment plan as appropriate Description: INTERVENTIONS: 1. Encourage patient or legal mortician supplies sales representative to report early pain and ask [...] per policy 9. Teach patient or legal mortician supplies sales representative interventions for comforting Outcome: Progressing Note: Pt able to report pain according to 0/10 pain scale. Medicating patient for pain per orders. Problem: Safety Goal: Patient will be injury free during hospitalization Description: INTERVENTIONS: 1. Assess patient's risk for falls and implement fall prevention plan of care per policy 2. Provide and maintain a safe environment 3. Proper use of double Identifiers 4. Medication administration using the 5 rights 5. Hand hygiene 6. Specimens are labeled at the bedside 7. Instruct patient/ patient mortician supplies sales representative about use of safety devices 8. Include patient/ patient mortician supplies sales representative in decisions related to safety Outcome: Progressing Note: Safety measures and hourly rounding in place. Pt remains free of falls and injury at this time. Will continue to monitor. Problem: Knowledge Deficit Goal: Patient/patient mortician supplies sales representative demonstrates understanding of disease process, treatment plan,medications, and discharge instructions Description: INTERVENTIONS 1. Complete learning assessment and assess knowledge base 2. Provide teaching at level of understanding 3. Provide teaching via preferred learning method(s) Note: POC discussed with patient. Questions answered PRN. Problem: Discharge Planning Goal: Discharge to post-acute [...] Arrange for needed discharge transportation as appropriate Note: Pt will be discharged to post acute care, other facility or home with appropriate resources. [facility]08-14-2025 Nurse Note* Nola Solo RN - 10/16/2024 5:54 AM EDT At 0500 I, Nola Solo RN, and Yolanda Gamino RN tried drawing labs for pt with no blood return. Phlebotomists Ellen and Luna also tried drawing labs with no success. [facility] [id number] Plan of care note* Plan of Care - Nola Solo RN - 10/15/2024 11:35 PM EDT Problem: Safety Goal: Patient will be injury free during hospitalization Description: INTERVENTIONS: 1. Assess patient's risk for falls and implement fall prevention plan of care per policy 2. Provide and maintain a safe environment 3. Proper use of double Identifiers 4. Medication administration using the 5 rights 5. Hand hygiene 6. Specimens are labeled at the bedside 7. Instruct patient/ patient mortician supplies sales representative about use of safety devices 8. Include patient/ patient mortician supplies sales representative in decisions related to safety Outcome: Progressing Note: Assess patient's risk for falls and implement fall prevention plan of care per policy. Provide and maintain a safe environment. Proper use of double Identifiers. Medication administration usingthe 5 rights. Hand hygiene Problem: Infection Goal: Absence of infection during hospitalization Description: INTERVENTIONS 1. Assess and monitor for signs and symptoms of infection. 2. Monitor lab/diagnostic results. 3. Monitor all insertion sites i.e., indwelling lines, tubes and drains. 4. Monitor endotracheal (as able) and nasal secretions for changes in amount and color. 5. Administer medications as ordered. 6. Instruct and encourage patient and family to use good hand hygiene technique. 7. Identify and instruct patient/patient mortician supplies sales representative in use of appropriate isolation precautionsfor identified infection/symptoms. 8. Provide and discuss with patient/patient mortician supplies sales representative on educational MDRO sheet. 9. Encourage and monitor nutritional status daily and consult movie shot cameraman if indicated. 10. Implement neutropenic guidelines as needed. Outcome: Progressing Note: Assess and monitor for signs and symptoms of infection. Monitor lab/diagnostic results. Monitor all insertion sites i.e., indwelling lines, tubes and drains. Monitor endotracheal (as able) and nasal secretions for changes in amount and color. Administer medications as ordered. Problem: Moderate - High Risk Fall Score Description: [place] Fall Score of =/> 25 or indicated by [facility] Assessment Goal: Patient should be free from fall Description: Interventions: 1. [place] to environment 2. Hourly rounds addressing the [...] non-skid footwear 11. Teach patient and patient mortician supplies sales representative to maintain environment for safety and [...] (cane, walker) within reach 19. Request patient mortician supplies sales representative bring adaptive equipment/mobility aids from home or obtain and provide as needed 20. Consult pharmacy regarding effects of med's affecting mobility, cognition, and alternatives 21. Obtain physician order for PT if risk factors associated with mobility are present 22. Obtain physician order for OT as appropriate 23. Utilize diversional activities 24. Educate patient and patient mortician supplies sales representative how to maintain a safe environment during visitationtimes (notify nurse prior to leaving bedside) 25. Consider appropriateness of medical or non-lead medical technologist 26. Set up voiding schedule as appropriate (every 2 hours) Outcome: Progressing Note: Hourly rounds addressing the 4 P's (Pain, Positioning, Possessions, Potty). Clear area of hazards (spills, clutter, electrical cords, unnecessary equipment). Maintain bed in lowest position [facility]08-13-2025 Plan of care note* Plan of Care - Nola Otto RN - 10/15/2024 3:30 PM EDT Problem: Pain Goal: Patient goal is pain score less than 4, able to rest, and participant in treatment plan as appropriate Description: INTERVENTIONS: 1. Encourage patient or legal mortician supplies sales representative to report early pain and ask [...] per policy 9. Teach patient or legal mortician supplies sales representative interventions for comforting Outcome: Progressing Note: Pt able to report pain according to 0/10 pain scale. Medicating patient for pain per orders. Problem: Safety Goal: Patient will be injury free during hospitalization Description: INTERVENTIONS: 1. Assess patient's risk for falls and implement fall prevention plan of care per policy 2. Provide and maintain a safe environment 3. Proper use of double Identifiers 4. Medication administration using the 5 rights 5. Hand hygiene 6. Specimens are labeled at the bedside 7. Instruct patient/ patient mortician supplies sales representative about use of safety devices 8. Include patient/ patient mortician supplies sales representative in decisions related to safety Outcome: Progressing Note: Pt's risk for falls assessed and fall prevention implemented as needed, safe environment provided and maintained, hand hygiene completed. Problem: Moderate - High Risk Fall Score Description: [place] Fall Score of =/> 25 or indicated by [facility] Assessment Goal: Patient should be free from fall Description: Interventions: 1. [place] to environment 2. Hourly rounds addressing the [...] non-skid footwear 11. Teach patient and patient mortician supplies sales representative to maintain environment for safety and [...] (cane, walker) within reach 19. Request patient mortician supplies sales representative bring adaptive equipment/mobility aids from home or obtain and provide as needed 20. Consult pharmacy regarding effects of med's affecting mobility, cognition, and alternatives 21. Obtain physician order for PT if risk factors associated with mobility are present 22. Obtain physician order for OT as appropriate 23. Utilize diversional activities 24. Educate patient and patient mortician supplies sales representative how to maintain a safe environment during visitationtimes (notify nurse prior to leaving bedside) 25. Consider appropriateness of medical or non-lead medical technologist 26. Set up voiding schedule as appropriate (every 2 hours) Outcome: Progressing Note: Pt remains free from falls or accidental injury during stay. Fall prevention measures in place. Hourly rounding per RN and maintained. Problem: Potential for Compromised Skin Integrity Goal: Skin integrity is maintained or improved Description: Patient's goal is: INTERVENTIONS 1. Perform initial skin assessment on admission and as needed 2. Turn patient every 2 hours and PRN 3. Relieve pressure to bony prominences 4. Avoid shearing 5. Keep skin clean and dry 6. Alternate a full bath with partial baths for elderly 7. Apply lotion/moisturizer on skin 8. Monitor patient's hygiene practices 9. Float heels 10. Collaborate with interdisciplinary team and initiate plans and interventions as needed Outcome: Progressing Note: Patient being turned Q2. Skin assesment per protocol. [facility]08-13-2025 Progress note* Discharge Planning Note - Violet Bush - 10/15/2024 3:07 PM EDT DISCHARGE PLANNING NOTE 2nd IMM letter sent via certified mail to patient's sister/guardian Susan Smith at [address] [facility] [address] [place] [address] [facility]08-13-2025 Progress note* Discharge Planning Note - Lavinia Holder RN - 10/15/2024 2:01 PM EDT 10/15/24 3940 Patient Information Initial Pre-Hospitalization Assessment Completed? Completed Primary Caregiver Family (Susan (guardian/sister)) Discharge Planning Living Arrangements [facility] Type of Residence [facility] Name [address] [address] [phone] Victorina (nurse) Home Care Services No Does The Patient Have Existing Home DME? Yes Existing Home DME Options Wheelchair Will the patient need DME at discharge? No, the patient has no home DME needs currently Income Information Income Information Disability IP Hunger/Food Insecurity Screening Within the past 12 months we worried whether our food would run out before we got money to buy more. Never True Within the past 12 months the food we bought just didn't last and we didn't have money to get more.Never True Hunger Screening Complete? Yes Pt. Eligible for Food / Voucher No If Eligible: Received Food Box Not Offered to Patient Warm Handoff Complete Caregiver/Family Member Caregiver/Family Member Susan guardian/sister Caregiver/Family Member Involved with Current Plan of Care Yes Caregiver/Family Member in Agreement with Current Plan of Care Yes Patient/Caregiver Goals Patient/Caregiver Goals (return to [facility]) Services Requested Patient expects to be discharged to: [facility] Does the patient wish to have family/friend/caregiver involved in their discharge planning? Yes Does the patient plan to return home to a community setting? Yes Has the family/friend/caregiver been assessed to determine their readiness, skills, capacities, andresources to provide post hospital care? Yes, Caregiver Assessment Completed Discharge Disposition [facility] Name [address] [address] [facility] to [facility] [phone] - Victorina (nurse) Does the patient need discharge transportation arranged? Yes Transportation Arranged [place] [facility] Planning Complete Discharge Milestones Yes DISCHARGE PLANNING NOTE CN called and completed assessment with Susan guardian/sister. Georgie, patient's mother was removed from emergency contact list. Susan notified CN that patient's mother is . [facility] prior to [facility]. Pt has been living in [facility] for estimat. 7 years. Susan provided CN with [employer] nurse's contact information. Patient will require transportation home. CN instructed Susan to call with any further needs/concerns. Plan is for patient to return to [facility]. Discharge plan: Will need transport home. [address] [address] Fax to [facility] [phone] - shelly (nurse) Dang Le [id number] Plan of care note* Plan of Care - Dimas Jackman RPH - 10/15/2024 1:59 PM EDT Problem: Medication Description: If medication is necessary, use low-risk medication that does not interfere with what matters to the older adult patient, mobility, or mentation across settings of care. Goal: Patient will be screened for high-risk medications once per stay Description: Interventions: 1. Pharmacist to perform medication review to screen for high-risk medications 2. Pharmacist to identify high-risk medications in the Plan of Care note 3. Pharmacist to make recommendations for follow-up in the Plan of Care note, if warranted Note: Medications individually and in combination may interfere with What Matters, Mentation, and safe Mobility because of the increased risk of confusion, delirium, unsteadiness and falls. Profile review indicates this patients has active orders for benzodiazepines (lorazepam). Chart review also sh ows no change in renal function. [facility] [id number] Plan of care note* Plan of Care - Dimas Jackman RPH - 10/15/2024 1:57 PM EDT Problem: Medication Description: If medication is necessary, use low-risk medication that does not interfere with what matters to the older adult patient, mobility, or mentation across settings of care. Goal: Patient will be screened for high-risk medications once per stay Description: Interventions: 1. Pharmacist to perform medication review to screen for high-risk medications 2. Pharmacist to identify high-risk medications in the Plan of Care note 3. Pharmacist to make recommendations for follow-up in the Plan of Care note, if warranted Note: Medications individually and in combination may interfere with What Matters, Mentation, and safe Mobility because of the increased risk of confusion, delirium, unsteadiness and falls. Profile review indicates this patients has active orders for benzodiazepines (lorazepam). Chart review also sh ows no change in renal function. [facility]08-13-2025 Consult note* Irwin Ge DO - 10/15/2024 6:59 AM EDTAssociated Order(s): IP CONSULT TO GENERAL SURGERY Images from the original note were not included. [facility] [address] [facility] [id number] CONSULT NOTE CHIEF COMPLAINT Chief Complaint Patient presents with Diarrhea Loose stools since yesterday, was discharged yesterday from [facility] with small bowel obstruction. Amol Taylor is a 69 y.o. male who presented to the ED yesterday by EMS from group home for evaluation of diarrhea. He was released from [facility] on 10/13/2024 for treatment of a small-bowel obstruction which was treated conservatively with nasogastric tube suction. Prior to discharge he had a small- bowel follow-through (10/11/2024) which showed no evidence of obstruction and he was tolerating a regular diet. He presented to the ED with emesis and a distended abdomen and diarrhea. Patient has an extensive surgical history in that he had intussusception of the bowel at 7 months of age and has had multiple bowel obstructions some treated with surgery. He also has a history of difficult intubation as well as a history of seizure disorder. He resides at a [facility]. He denies any abdominal pain. He knows where he is. Otherwise he can not give much of the history. According to his nurse at the bedside he has had approximately 1500 cc out from his nasogastric tube since admission. Reason for Exam Questionable small bowel obstruction PACS Images Show images for CT abdomen and pelvis with contrast CT abdomen and pelvis with contrast Order: [id number] Status: Final result Next appt: None Test Result Released: No (scheduled for 10/15/2024 1:20 PM) 0 Result Notes Details Reading Physician Reading Date Result Priority Irwin Rivera MD [phone] 10/14/2024 STAT Narrative & Impression STUDY: ABDOMEN AND PELVIS CT WITH CONTRAST CLINICAL HISTORY: Abdominal pain. Small bowel obstruction. Questionable small bowel obstruction COMPARISON: 04/07/2023 TECHNIQUE: CT abdomen and pelvis was performed utilizing 5 mm axial reconstructions following the uneventful administration of 100 cc Omnipaque 300 nonionic intravenous contrast. Coronal and sagittalreformatted images as well as delayed excretory phase images were obtained and reviewed. Automated exposure control was utilized. FINDINGS: Abdomen: No pleural or pericardial effusion and lung bases. Dependent changes and atelectasis in both lungs. Severe distention of the stomach. There is fluid-filled dilated small bowel loops with relatively decompressed distal small bowel loops could represent evolving ileus or obstruction. There is no evidence of free intraperitoneal gas. The liver, adrenal glands, pancreas and spleen appear grossly unremarkable. There is a calcified subcapsular left renal lesion stable likely representing sequela of prior subcapsular hematoma. No renal collecting system dilatation. No enlarged mesenteric or retroperitoneal lymph nodes. Pelvis: No free pelvic fluid. No enlarged pelvic lymph nodes. Urinary bladder is grossly unremarkable. Degenerative change of the thoracolumbar spine. No vertebral body height loss. IMPRESSION: 1. Fluid-filled mildly dilated proximal small bowel loops and distention of the stomach represent evolving small bowel obstruction or ileus. Consider Gastrografin challenge. All CT scans at this facility use dose modulation, iterative reconstruction, and/or weight based dosing when appropriate to reduce radiation dose to as low as reasonably achievable. Finalized by Irwin Rivera MD on 10/14/2024 2:19 PM Exam Ended: 10/14/24 14:14 EDT Last Resulted: 10/14/24 14:19 EDT MEDICATION Current Facility-Administered Medications: acetaminophen (TYLENOL) tablet 650 mg, 650 mg, nasogastric, Q6H PRN, 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 dextrose (GLUTOSE) 40 % gel 15 g, 15 g, oral, PRN, Shruthi Jarrellle, PROGRAM DIR-PATTERN PAINTER dextrose 5 % (D5W) infusion, 100 mL/hr, intravenous, Continuous PRN, Shruthi Jarrellle, PROGRAM DIR-PATTERN PAINTER dextrose 50 % in water (D50W) 50% solution 25 mL, 25 mL, intravenous, PRN, Shruthi Ragle, PROGRAM DIR-PATTERN PAINTER famotidine (PF) (PEPCID) injection 20 mg, 20 mg, intravenous, Q12H DAR, Sanam Guido MD, 20 mg at 10/14/242049 glucagon HCL injection 1 mg, 1 mg, intramuscular, PRN, RALPH Ivey levETIRAcetam (KEPPRA) 1,000 mg in sodium chloride 0.9 % 110 mL IVPB, 1,000 mg, intravenous, Q12H, Dian Randall MD, Stopped at 10/14/24 192 levoFLOXacin (LEVAQUIN) IVPB 500 mg/100 mL in dextrose 5% (5 mg/mL premix), 500 mg, intravenous, Q24H, Sanam Guido MD, Stopped at 10/14/24 215 magnesium sulfate IVPB 2000 mg/50 mL in iso-osmotic water (40 mg/mL premix), 2,000 mg, intravenous,PRN, RALPH Ivey, Stopped at 10/15/24 0207 magnesium sulfate IVPB 4000 mg/100 mL in iso-osmotic water (40 mg/mL premix), 4,000 mg, intravenous, PRN, RALPH Ivey metroNIDAZOLE (FLAGYL) IVPB 500 mg/100 mL in iso-osmotic sodium chloride (5 mg/mL premix), 500 mg, intravenous, Q12H, Sanam Guido MD, Stopped at 10/14/24 2331 ondansetron (PF) (ZOFRAN) injection 4 mg, 4 mg, intravenous, Q6H PRN, RALPH Ivey potassium chloride (KLOR-CON M 20) CR tablet 20-40 mEq, 20-40 mEq, oral, PRN OR potassium chloride (KAYCIEL) 20 mEq/15 mL solution 20-40 mEq, 20-40 mEq, oral, PRN OR potassium chloride IVPB 10 mEq/100 mL in water (0.1 mEq/mL premix), 10 mEq, intravenous, PRN, RALPH Ivey, Stoppedat 10/14/24 2330 sennosides-docusate sodium (SENOKOT-S) 8.6-50 mg 1 tablet, 1 tablet, oral, Q12H PRN, Shruthi Ragle, PROGRAM DIR-PATTERN PAINTER sodium chloride 0.9 % flush 10 mL, 10 mL, intravenous, PRN, iDan Randall MD, 10 mL at 10/14/24 1408 Consult PICC nurse - Midline, , , Once AND sodium chloride 0.9 % flush 20 mL, 20 mL, intravenous, Q12H, 20 mL at 10/14/24 2050 AND sodium chloride 0.9 % flush 20 mL, 20 mL, intravenous, PRN AND sodium chloride 0.9 % flush 40 mL, 40 mL, intravenous, PRN, Dian Randall MD sodium chloride 0.9 % flush 3 mL, 3 mL, intravenous, PRN, Dian Randall MD sodium chloride 0.9 % flush bag, 25 mL, intravenous, PRN, Shruthi Ragle, PROGRAM DIR-PATTERN PAINTER sodium chloride 0.9 % infusion, 125 mL/hr, intravenous, Continuous, Dian Randall MD, Held at 10/14/24 1125 sodium chloride 0.9 % infusion, 20 mL/hr, intravenous, Continuous PRN, Shruthi Ragle, PROGRAM DIR-PATTERN PAINTER, LastRate: 20 mL/hr at 10/15/24 0307, Rate Verify at 10/15/24 0307 sodium chloride 0.9 % infusion, 75 mL/hr, intravenous, Continuous, Shruthi Ragle, PROGRAM DIR-PATTERN PAINTER, Last Rate: 75 mL/hr at 10/15/24 0307, Rate Verify at 10/15/24 0307 sodium chloride 0.9 % infusion, 125 mL/hr, intravenous, Continuous, Sanam Guido MD, Held at10/14/24 1505 sodium chloride 0.9 % radiology injection, 80 mL, intravenous, Once in imaging, Dian Randall MD ALLERGY Allergies Allergen Reactions Penicillins Hives, Shortness Of Breath, Angioedema, Other (See Comments), Rash and Swelling Sodium Hypochlorite Hives and Itching Bleach (Sodium Hypochlorite) Itching Tree Nuts Clindamycin Rash MEDICAL HISTORY Past Medical History: Diagnosis Date Abdominal hernia large but surgical risk Abnormal result of iron profile testing chronic ds Allergic Allergic rhinitis Balance problem falls with several fx// wears helment for protection Bowel obstruction ([facility]) 2017 Apr and Oct BPH (benign prostatic hyperplasia) sees urology 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(jerking motions) // has a VNS implant which decreased grand mal seizures/ jerking episod weekly Uninodular goiter Urine incontinence SURGICAL HISTORY Past Surgical History: Procedure Laterality Date CLAVICLE SURGERY COLONOSCOPY CYSTOCELE REPAIR 2015 EXCHANGE STIMULATOR BATTERY VAGAL NERVE N/A 03/23/2020 Performed by Nicola Mahan MD at [facility] 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 2004 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 REPAIR 7 months old SMALL INTESTINE SURGERY 1985, 1992, 1993 s/p diverticulitis; bowel obstruction x 2 SOCIAL HISTORY Social History Socioeconomic History Marital status: Single Spouse name: Not on file Number of children: 0 Years of education: Not on file Highest education level: Not on file Occupational History 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 Tobacco Use Smoking status: Never Smokeless tobacco: Never Substance and Sexual Activity Alcohol use: No Drug use: No Sexual activity: Never Other Topics Concern Not on file Social History Narrative Not on file Social Drivers of Health Financial Resource Strain: Patient Unable To Answer (10/14/2024) Overall Financial Resource Strain (CARDIA) Difficulty of Paying Living Expenses: Patient unable to answer Food Insecurity: Patient Unable To Answer (10/14/2024) Hunger Screening Food Insecurity - Worry: Patient unable to answer Food Insecurity - Inability: Patient unable to answer Transportation Needs: Patient Unable To Answer (10/14/2024) PRAPARE - Transportation Lack of Transportation (Medical): Patient unable to answer Lack of Transportation (Non-Medical): Patient unable to answer Physical Activity: Patient Unable To Answer (10/14/2024) Exercise Vital Sign Days of Exercise per Week: Patient unable to answer Minutes of Exercise per Session: Patient unable to answer Stress: Patient Unable To Answer (10/14/2024) [employer] [place] [employer] - Occupational Stress Questionnaire Feeling of Stress : Patient unable to answer Social Connections: Patient Unable To Answer (10/14/2024) Social Connection and Isolation Panel [NHANES] Frequency of Communication with Friends and Family: Patient unable to answer Frequency of Social Gatherings with Friends and Family: Patient unable to answer Attends Catholic Services: Patient unable to answer Active Member of Clubs or Organizations: Patient unable to answer Attends Club or Organization Meetings: Patient unable to answer Marital Status: Patient unable to answer Interpersonal Safety: Patient Unable To Answer (10/14/2024) Humiliation, Afraid, Rape, and Kick questionnaire Fear of Current or Ex-Partner: Patient unable to answer Emotionally Abused: Patient unable to answer Physically Abused: Patient unable to answer Sexually Abused: Patient unable to answer Housing Instability: Patient Unable To Answer (10/14/2024) Housing Instability Housing Instability: Patient unable to answer FAMILY HISTORY Family History Problem Relation Age of Onset Thyroid cancer Mother Multiple myeloma Mother Arthritis Mother Heart disease Mother Pancreatitis Mother Lung cancer Father Diabetes Sister Hypertension Sister Diabetes Brother Heart disease Brother COPD Brother REVIEW OF SYSTEMS: Constitutional: Denies fevers, denies recent illnesses. Eyes: Denies any vision changes. ENT: Denies any throat pain. Neck: Denies any neck pain. Cardiovascular denies chest pain. Denies palpitations. Respiratory: Denies shortness of breath, denies cough, denies history of asthma or any other pulmonary illnesses. Gastrointestinal: Positive emesis yesterday; none since. Negative for abdominal pain, nausea, melena, hematochezia, weight loss, change in bowel habits or weight loss or emesis. Genitourinary: Has a urinary catheter in place?; negative for dysuria hematuria urinary frequency or urgency. Musculoskeletal: As contractures of upper hands and left lower extremity; Negative for extremity pains or joint discomfort. Neurologic: No change in sensation or paresthesias ; positive history of seizure disorder skin: No rashes. Hematologic: No anemia. No purpura. No petechiae and no prolonged or excessive bleeding Allergic and immunologic: No pruritus. No swelling. Endocrine: No unexplained weight loss. No polydipsia. No polyuria. No polyphagia. PHYSICAL EXAM Constitutional: He is oriented to person, place, and time. Vital signs are normal. He appears well-developed and well-nourished. Does not appear to be in any acute distress. HEENT: Head: Normocephalic and atraumatic. He wears a helmet. Eyes: Conjunctivae, EOM and lids are normal. Neck: Trachea normal. Neck supple. No thyroid mass present. Cardiovascular: Normal rate and regular rhythm. Pulmonary/Chest: Effort normal and breath sounds abnormal with coarse rhonchi throughout all lung amtta. Abdominal: Soft. Obese; Normal appearance. He exhibits no distension and no mass. No hernia. Healedmidline incision to the left of the midline and his panniculus resides to the left. Bowel sounds are present. Musculoskeletal: Normal range of motion. Contractures of upper hands and left lower extremity Lymphadenopathy: He has no cervical adenopathy. Neurological: He is alert and oriented to person, place, and time. Skin: Skin is warm, dry and intact. Psychiatric: He has a normal mood and affect. His speech is normal and behavior is normal. As history of MR DD IMPRESSION 1. Small-bowel obstruction 2. History of MR DD 3. History of seizure disorder 4. class 2 obesity with BMI of 36 ASSESSMENT & PLAN 1. NG tube to low intermittent suction 2. Repeat abdominal x-rays tomorrow 3. Recheck chest x-ray to rule out pneumonia or atelectasis leading to ileus and continued problems; last chest x-ray 10/11/2024 which showed possible trace of left pleural effusion. Time spent with patient and reviewing chart:60 minutes Evaluation included: Preparing to see the patient (e.g., review of tests) Obtaining and/or reviewing separately obtained history Performing a medically appropriate examination and/or evaluation Counseling and educating the patient/family/caregiver Referring and communicating with other health career development director - Irwin Ge DO 10/15/24 6:59 AM This note was created with the assistance of a speech recognition program. While intending to generate a timely document that accurately reflects the content of the visit, no guarantee can be provided that every grammatical or spelling mistake has been or will be identified or corrected. Thank you for your understanding. [facility]08-12-2025 Plan of care note* Plan of Care - Andrey Paiz RN - 10/14/2024 9:27 PM EDT Problem: Pain Goal: Patient goal is pain score less than 4, able to rest, and participant in treatment plan as appropriate Description: INTERVENTIONS: 1. Encourage patient or legal mortician supplies sales representative to report early pain and ask [...] per policy 9. Teach patient or legal mortician supplies sales representative interventions for comforting Outcome: Progressing Note: Pt states pain is controlled. Will continue to assess. Problem: Safety Goal: Patient will be injury free during hospitalization Description: INTERVENTIONS: 1. Assess patient's risk for falls and implement fall prevention plan of care per policy 2. Provide and maintain a safe environment 3. Proper use of double Identifiers 4. Medication administration using the 5 rights 5. Hand hygiene 6. Specimens are labeled at the bedside 7. Instruct patient/ patient mortician supplies sales representative about use of safety devices 8. Include patient/ patient mortician supplies sales representative in decisions related to safety Outcome: Progressing Note: Pt free from falls. Safety maintained. Problem: Infection Goal: Absence of infection during hospitalization Description: INTERVENTIONS 1. Assess and monitor for signs and symptoms of infection. 2. Monitor lab/diagnostic results. 3. Monitor all insertion sites i.e., indwelling lines, tubes and drains. 4. Monitor endotracheal (as able) and nasal secretions for changes in amount and color. 5. Administer medications as ordered. 6. Instruct and encourage patient and family to use good hand hygiene technique. 7. Identify and instruct patient/patient mortician supplies sales representative in use of appropriate isolation precautionsfor identified infection/symptoms. 8. Provide and discuss with patient/patient mortician supplies sales representative on educational MDRO sheet. 9. Encourage and monitor nutritional status daily and consult movie shot cameraman if indicated. 10. Implement neutropenic guidelines as needed. Outcome: Progressing Note: Pt free from s/s of infection. Will continue to monitor. Problem: Knowledge Deficit Goal: Patient/patient mortician supplies sales representative demonstrates understanding of disease process, treatment plan,medications, and discharge instructions Description: INTERVENTIONS 1. Complete learning assessment and assess knowledge base 2. Provide teaching at level of understanding 3. Provide teaching via preferred learning method(s) Outcome: Progressing Note: Plan of care reviewed with patient. Questions answered. Will continue to assess. [facility]08-12-2025 Plan of care note* Plan of Care - Katie Amato RN - 10/14/2024 6:34 PM EDT Problem: Safety Goal: Patient will be injury free during hospitalization Description: INTERVENTIONS: 1. Assess patient's risk for falls and implement fall prevention plan of care per policy 2. Provide and maintain a safe environment 3. Proper use of double Identifiers 4. Medication administration using the 5 rights 5. Hand hygiene 6. Specimens are labeled at the bedside 7. Instruct patient/ patient mortician supplies sales representative about use of safety devices 8. Include patient/ patient mortician supplies sales representative in decisions related to safety Outcome: Progressing Note: Patient safety maintained during shift with use of 5 rights, patient and staff using hygiene,patient environment free of harm and debrie. Will continue to monitor during shift. Problem: Knowledge Deficit Goal: Patient/patient mortician supplies sales representative demonstrates understanding of disease process, treatment plan,medications, and discharge instructions Description: INTERVENTIONS 1. Complete learning assessment and assess knowledge base 2. Provide teaching at level of understanding 3. Provide teaching via preferred learning method(s) Outcome: Progressing Note: Patient updated on POC he verbalizes understanding and voices no concerns at this time. Will continue to update and assess patient throughout shift for needs. Problem: Moderate - High Risk Fall Score Description: [place] Fall Score of =/> 25 or indicated by [facility] Assessment Goal: Patient should be free from fall Description: Interventions: 1. [place] to environment 2. Hourly rounds addressing the [...] non-skid footwear 11. Teach patient and patient mortician supplies sales representative to maintain environment for safety and [...] (cane, walker) within reach 19. Request patient mortician supplies sales representative bring adaptive equipment/mobility aids from home or obtain and provide as needed 20. Consult pharmacy regarding effects of med's affecting mobility, cognition, and alternatives 21. Obtain physician order for PT if risk factors associated with mobility are present 22. Obtain physician order for OT as appropriate 23. Utilize diversional activities 24. Educate patient and patient mortician supplies sales representative how to maintain a safe environment during visitationtimes (notify nurse prior to leaving bedside) 25. Consider appropriateness of medical or non-lead medical technologist 26. Set up voiding schedule as appropriate (every 2 hours) Outcome: Progressing Note: Patient remains free from falls during shift, patient transfers via maxi chloe, patients room is free of clutter and debrie, patients bed remains locked and in lowest position, hourly rounding continues, patient uses call light to notify staff of needs, appropriate safe patient handling used during shift. Will continue to monitor during shift. [facility] [id number] Procedure note* Ramesh Bolton RN - 10/14/2024 5:48 PM EDT Midline placement note: Dynamic scenario writer: Ramesh Bolton RN Prescribed IV therapy: levaquin, flagyl History / Labs / Allergies were reviewed prior to insertion Any contraindications/considerations prior to placement: Poor IV access. Order states hypotension possible pressors, patients BP 138/76. Spoke to MD on and discussed need for vaspressors, would recommend PICC over midline. If pressors not needed midline would provide reliable IV access. Due to blood pressure provider opted for midline placement. Approvals required before insertion: N/A Bedside time out performed with nurse ARA Ling utilizing two identifiers Midline: Product type: 4 fr SL Bard Powermidline inserted into the left basilic vein Ref: [id number] Lot: [id number] Exp: 11/02/2025 Catheter length 10 cm with 0 cm external Number of attempts: 1 Dressed per protocol with statlock and CHG tegaderm Lidocaine used during procedure: intradermal administration conc 1% approximately 1mL Lot #: [id number] Exp: 04/05/2026 Following successful completion of procedure, all Midline kit components including sharps were accounted for, intact, and disposed of properly. Midline catheter tip is located at the level of the axilla and was placed with a brisk blood return. Line is immediately released for use. Per facility policy midline is okay for 30 days use but is to be removed due to signs of infiltration / phlebitis / extravasation. Line is to be used as a peripheral catheter with caution for any vesicant administration. Per facility policy and product IFU line is okay for lab draws if a blood return is present. Midline is okay to use if no blood return is present as long as there are no signs/symptoms of infiltration / phlebitis / extravasation including but not limited to leaking and/or redness at the insertion site and pain during infusion. [facility]08-12-2025 Procedure note* Ramesh Bolton RN - 10/14/2024 5:48 PM EDT Midline placement note: Dynamic scenario writer: Ramesh Bolton RN Prescribed IV therapy: levaquin, flagyl History / Labs / Allergies were reviewed prior to insertion Any contraindications/considerations prior to placement: Poor IV access. Order states hypotension possible pressors, patients BP 138/76. Spoke to MD on and discussed need for vaspressors, would recommend PICC over midline. If pressors not needed midline would provide reliable IV access. Due to blood pressure provider opted for midline placement. Approvals required before insertion: N/A Bedside time out performed with nurse ARA Ling utilizing two identifiers Midline: Product type: 4 fr SL Bard Powermidline inserted into the left basilic vein Ref: [id number] Lot: [id number] Exp: 11/02/2025 Catheter length 10 cm with 0 cm external Number of attempts: 1 Dressed per protocol with statlock and CHG tegaderm Lidocaine used during procedure: intradermal administration conc 1% approximately 1mL Lot #: [id number] Exp: 04/05/2026 Following successful completion of procedure, all Midline kit components including sharps were accounted for, intact, and disposed of properly. Midline catheter tip is located at the level of the axilla and was placed with a brisk blood return. Line is immediately released for use. Per facility policy midline is okay for 30 days use but is to be removed due to signs of infiltration / phlebitis / extravasation. Line is to be used as a peripheral catheter with caution for any vesicant administration. Per facility policy and product IFU line is okay for lab draws if a blood return is present. Midline is okay to use if no blood return is present as long as there are no signs/symptoms of infiltration / phlebitis / extravasation including but not limited to leaking and/or redness at the insertion site and pain during infusion. [facility] Emergency department Note* Tammy Zhang CNA - 10/14/2024 5:05 PM EDT Merari Oneal, up after 1620 [facility]08-12-2025 Emergency department Note* Tammy Corcoran CNA - 10/14/2024 5:05 PM EDT 208, Merari, up after 1620 * Tammy Zhang CNA - 10/14/2024 3:52 PM EDT 213-2, Nan, up after 1620 * Dian Randall MD - 10/14/2024 11:18 AM EDT Images from the original note were not included. [facility] - EMERGENCY Pt Name: Amol Taylor Birthdate: 1955 Chief Complaint: Chief Complaint Patient presents with Diarrhea Loose stools since yesterday, was discharged yesterday from [facility] with small bowel obstruction. History of Present Illness: Initial evaluation performed at 11:[address] Randall. Patient is a 69 y.o. male who presents to the ED by EMS from group home for evaluation of diarrhea. EMS stated that yesterday he was just releases from [facility] after being admitted for a small bowel obstruction. EMS stated the nurses were concerned after he had loose stools today. Pt denied any pain. Pt states he did have emesis, but did not state when he did. 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) // has a VNS implant which decreased grand mal seizures/ jerking episod weekly Uninodular goiter Urine incontinence Past Surgical History: Past Surgical History: Procedure Laterality Date CLAVICLE SURGERY COLONOSCOPY CYSTOCELE REPAIR 2016 EXCHANGE STIMULATOR BATTERY VAGAL NERVE N/A 03/23/2020 Performed by Nicola Mahan MD at [facility] 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 2004 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 REPAIR 7 months old SMALL INTESTINE SURGERY 1985, 1992, 1993 s/p diverticulitis; bowel obstruction x 2 Family History: Family History Problem Relation Age of Onset Thyroid cancer Mother Multiple myeloma Mother Arthritis Mother Heart disease Mother Pancreatitis Mother Lung cancer Father Diabetes Sister Hypertension Sister Diabetes Brother Heart disease Brother COPD Brother Social History: Social History Socioeconomic History Marital status: Single Number of children: 0 Occupational History Occupation: [employer] 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 Tobacco Use Smoking status: Never Smokeless tobacco: Never Substance and Sexual Activity Alcohol use: No Drug use: No Sexual activity: Never Social Drivers of Health Food Insecurity: No Food Insecurity (10/14/2024) Hunger Screening Food Insecurity - Worry: Never True Food Insecurity - Inability: Never True Transportation Needs: Patient Unable To Answer (10/10/2024) PRAPARE - Transportation Lack of Transportation (Medical): Patient unable to answer Lack of Transportation (Non-Medical): Patient unable to answer Interpersonal Safety: Patient Unable To Answer (10/10/2024) Humiliation, Afraid, Rape, and Kick questionnaire Fear of Current or Ex-Partner: Patient unable to answer Emotionally Abused: Patient unable to answer Physically Abused: Patient unable to answer Sexually Abused: Patient unable to answer Housing Instability: Patient Unable To Answer (10/10/2024) Housing Instability Housing Instability: Patient unable to answer Review of Systems: Review of Systems Physical Exam: ED Triage Vitals Temp Pulse Resp BP SpO2 -- -- -- -- -- Temp src Heart Rate Source Patient Position BP Location FiO2 (%) -- -- -- -- -- Vitals: 10/14/24 1122 10/14/24 1237 BP: 135/87 118/82 Temp: 36.7 C (98 F) TempSrc: Oral Pulse: (!) 116 Resp: 18 SpO2: 94% 93% MAP (mmHg): 96 Height: 167.6 cm (5' 5.98 ) Weight: 103 kg (227 lb) Physical Exam Vitals reviewed. HENT: Head: Normocephalic and atraumatic. Eyes: Conjunctiva/sclera: Conjunctivae normal. Cardiovascular: Rate and Rhythm: Normal rate. Pulmonary: Effort: Pulmonary effort is normal. Breath sounds: Normal breath sounds. Abdominal: General: Bowel sounds are decreased. There is distension (soft). Palpations: Abdomen is soft. Comments: Slight tympanitic sound on palpation Musculoskeletal: General: Normal range of motion. Cervical back: Normal range of motion and neck supple. Skin: General: Skin is warm and dry. Neurological: General: No focal deficit present. Mental Status: He is alert and oriented to person, place, and time. GCS: GCS eye subscore is 4. GCS verbal subscore is 5. GCS motor subscore is 6. Procedure: Procedures Re-evaluation: Re-Evaluation Medical Decision Making Amount and/or Complexity of Data Reviewed Labs: ordered. Radiology: ordered and independent interpretation performed. Details: Imaging was independently viewed and is notable for significant gastric dilation and distended loops of bowel . However, pending official radiologist read. Discussion of management or test interpretation with external provider(s): 2:[address] Ge (Surgery), who reviewed case. He states that he will consult with the hospitalist here if they will admit him. 2:[address] Guido (Hospitalist), who reviewed case and is agreeable to admit the patient for further care and evaluation. Risk Prescription drug management. ED Course: Clinical Impressions as of 10/15/24 1552 Small bowel obstruction (CMS-HCC) Urinary retention . ED Disposition ED Disposition Admit Date/Time SunOct 14, 2024 2:55 PM Comment At this time, the patient has objective evidence of an acute process that will likely require hospitalization for greater than 2 midnights. The patient will be admitted. . Please note that portions of this note were completed with a voice recognition program. Efforts were made to edit the dictations but occasionally words are mis-transcribed. Jarra Morrison 10/14/24 1123 Jarra Morrison 10/14/24 1127 Jarra Morrison 10/14/24 1420 Jarra Morrison 10/14/24 1442 Jarra Morrison 10/14/24 1444 Jarra Morrison 10/14/24 1455 Dian Randall MD 10/15/24 1718 documented [facility] Nurse Note* Jackie Lou RN - 10/14/2024 4:04 PM EDT Please call geriatric care manager at [phone] if information on patient needed. retail asset protection specialist notified of admission. [facility]08-12-2025 Emergency department Note* Tammy Corcoran CNA - 10/14/2024 3:52 PM EDT 213-2, Nan, up after 1620 [facility]08-12-2025 History and physical note* Sanam Guido MD - 10/14/2024 2:58 PM EDT [facility] Hospitalist / Family Medicine History and Physical Name: Amol Taylor Acct: [id number] Room: Admit Date: 10/14/2024 PCP: CARSON DIOR MD Chief Complaint: Chief Complaint Patient presents with Diarrhea Loose stools since yesterday, was discharged yesterday from [facility] with small bowel obstruction. History Obtained From: chart review and the patient. History of Present Illness: Amol Taylor is a 69 y.o. male with seizure, developmental delay presents with Diarrhea (Loose stools since yesterday, was discharged yesterday from [facility] with small bowel obstruction. ) Per EMS patient is having loose stools since yesterday. patient has been recently discharged from [facility] for concerns of small-bowel obstruction. Patient states that he had 1 episode of vomiting today. 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 Authorizing Provider acetaminophen (TYLENOL EXTRA STRENGTH) 500 mg tablet Take 1 tablet (500 mg total) by mouth every 6 (six) hours as needed for pain. 03/23/20 Violette Esparza MD albuterol (PROVENTIL HFA;VENTOLIN HFA) 90 mcg/actuation inhaler Inhale 2 puffs every 4 (four) hoursas needed for wheezing. 02/15/23 Christine Saini DO benzonatate (TESSALON PERLES) 100 mg capsule Take 1 capsule (100 mg total) by mouth 3 (three) timesa day as needed for cough. 07/21/24 Not In System Ref Prov TAYE-GEST ANTACID 200 mg calcium (500 mg) chewable tablet Chew 1 tablet (200 mg total) and swallow in the morning and 1 tablet (200 mg total) before bedtime. 10/02/24 Not In System Ref Prov carbamide peroxide (DEBROX) 6.5 % otic solution Apply 4 ggt to both ear nightly once a month . Cotton ball then in am rinse with body temperature water using syringe in kit 11/12/18 Tyra Ilo, DO cholecalciferol, vitamin D3, (cholecalciferol) 1,000 units tablet Take 1 tablet (1,000 Units total)by mouth daily. 09/04/18 Tyra Ilo, DO cyanocobalamin 1000 MCG tablet Take 1 tablet (1,000 mcg total) by mouth in the morning. 04/19/23 Edilma Eastman MD diazePAM (DIASTAT ACUDIAL) 5-7.5-10 mg rectal kit Insert 20 mg into the rectum as needed for seizures (seizure > 15 minutes). Not In System Ref Prov finasteride (PROSCAR) 5 mg tablet Take 1 tablet (5 mg total) by mouth daily. 04/03/17 Tyra Ilo, DO hydrOXYzine (ATARAX) 25 mg tablet Take 1 tablet (25 mg total) by mouth every 12 (twelve) hours as needed for itching. Not In System Ref Prov lamoTRIgine (LaMICtal) 200 mg tablet Take 2 tablets (400 mg total) by mouth every morning. Not In System Ref Prov lamoTRIgine (LaMICtal) 200 mg tablet Take 3 tablets (600 mg total) by mouth nightly. Not In System Ref Prov latanoprost (XALATAN) 0.005 % ophthalmic solution Administer 1 drop to both eyes nightly. Not In System Ref Prov levETIRAcetam (KEPPRA) 1000 mg tablet Take 2 tablets (2,000 mg total) by mouth once daily at bedtime. 10/13/24 RALPH Maldonado levETIRAcetam (KEPPRA) 750 mg tablet Take 2 tablets (1,500 mg total) by mouth in the morning. 10/14/24 RALPH Maldonado LINZESS 145 mcg capsule Take 1 capsule (145 mcg total) by mouth every morning before breakfast. 10/02/24 Not In System Ref Prov LORazepam (ATIVAN) 0.5 mg tablet Take 1 tablet (0.5 mg total) by mouth every 8 (eight) hours as needed for anxiety. Not In System Ref Prov magnesium oxide (MAGOX) 400 mg tablet Take 1 tablet (400 mg total) by mouth in the morning. 04/19/23Edilma Eastman MD meclizine (ANTIVERT) 25 mg tablet Take 1 tablet (25 mg total) by mouth daily. 11/12/18 Tyraida Robles, DO melatonin 3 mg capsule Take 1 capsule by mouth nightly as needed (insomnia). Not In System Ref Prov olopatadine (PATADAY) 0.2 % drops Instill 1 drop to eye in the morning. 07/21/24 Not In System Ref Prov ondansetron ODT (ZOFRAN-ODT) 4 mg disintegrating tablet Dissolve 1 tablet (4 mg total) on tongue every 12 (twelve) hours as needed for nausea or vomiting. 04/03/17 Tyra Robles DO pantoprazole (PROTONIX) 40 mg EC tablet Take 1 tablet (40 mg total) by mouth in the morning. Not InSystem Ref Prov polyethylene glycol (GLYCOLAX) 17 gram packet Take 17 g by mouth 2 (two) times a day as needed (constipation). Not In System Ref Prov primidone (MYSOLINE) 250 mg tablet Take 1 tablet (250 mg total) by mouth in the morning. Not In System Ref Prov primidone (MYSOLINE) 250 mg tablet Take 1.5 tablets (375 mg total) by mouth nightly. Not In System Ref Prov SENEXON-S 8.6-50 mg Take 2 tablets by mouth in the morning. 09/16/24 Not In System Ref Prov tamsulosin (FLOMAX) 0.4 mg capsule,extended release 24hr Take 1 capsule (0.4 mg total) by mouth 2 (two) times a day. 04/03/17 Tyra Robles DO VIMPAT 150 mg tablet Take 1 tablet (150 mg total) by mouth 2 (two) times a day. 03/07/18 Tyra Robles DO Allergies: Penicillins, Sodium hypochlorite, Bleach (sodium hypochlorite), Tree nuts, and Clindamycin Social History: Tobacco: reports that he has never smoked. He has never used smokeless tobacco. Alcohol: reports no history of alcohol use. Drug Use: reports no history of drug use. Family History: Family History Problem Relation Age of Onset Thyroid cancer Mother Multiple myeloma Mother Arthritis Mother Heart disease Mother Pancreatitis Mother Lung cancer Father Diabetes Sister Hypertension Sister Diabetes Brother Heart disease Brother COPD Brother Review of Systems: All 10 systems reviewed and negative except as noted Review of Systems Constitutional: Negative for chills and fever. HENT: Negative for ear pain, hearing loss, rhinorrhea, sore throat and voice change. Eyes: Negative for pain and visual disturbance. Respiratory: Negative for cough and shortness of breath. Cardiovascular: Negative for chest pain, palpitations and leg swelling. Gastrointestinal: Positive for diarrhea. Negative for abdominal pain, nausea and vomiting. Endocrine: Negative for cold intolerance, heat intolerance, polydipsia, polyphagia and polyuria. Genitourinary: Negative for dysuria, flank pain and hematuria. Musculoskeletal: Negative for gait problem, joint swelling and neck pain. Skin: Negative for color change and rash. Allergic/Immunologic: Negative for immunocompromised state. Neurological: Negative for dizziness, syncope, weakness and headaches. Hematological: Does not bruise/bleed easily. Psychiatric/Behavioral: Negative for decreased concentration, dysphoric mood, self-injury and suicidal ideas. The patient is not nervous/anxious. Code Status: Full Code Physical Exam: Vitals: BP (!) 135/96 Pulse (!) 116 Temp 36.7 C (98 F) (Oral) Resp 18 Ht 167.6 cm (5' 5.98 ) Wt 103 kg (227 lb) SpO2 94% BMI 36.66 kg/m Temp (24hrs), Av.7 C (98 F), Min:36.7 C (98 F), Max:36.7 C (98 F) Physical Exam Vitals reviewed. Constitutional: General: He is not in acute distress. Appearance: Normal appearance. HENT: Head: Normocephalic and atraumatic. Mouth/Throat: Mouth: Mucous membranes are moist. Eyes: Conjunctiva/sclera: Conjunctivae normal. Cardiovascular: Rate and Rhythm: Normal rate and regular rhythm. Pulses: Normal pulses. Heart sounds: Normal heart sounds. Pulmonary: Effort: Pulmonary effort is normal. Breath sounds: Normal breath sounds. No wheezing or rales. Abdominal: General: Abdomen is flat. Bowel sounds are decreased. There is distension. Palpations: Abdomen is soft. Tenderness: There is no abdominal tenderness. Musculoskeletal: General: Normal range of motion. Cervical back: Normal range of motion and neck supple. Right lower leg: No edema. Left lower leg: No edema. Skin: General: Skin is warm and dry. Capillary Refill: Capillary refill takes less than 2 seconds. Neurological: Mental Status: He is alert. Data: Recent Results (from the past 24 hours) CBC auto differential Collection Time: 10/14/24 1:25 PM Result Value Ref Range WBC 14.4 (H) 4 - 11 x10E9/L RBC Count 4.68 4.1 - 5.7 X10E12/L Hemoglobin 14.9 13 - 17 g/dL Hematocrit 44.5 39 - 50 % MCV 95 80 - 100 fL MCH 31.7 27 - 34 pg MCHC 33.4 32 - 36 g/dL RDW 12.9 11.5 - 15 % Platelet Count 354 150 - 450 X10E9/L MPV 7.6 7 - 12 fL Neutrophils % 75.3 % Lymphocytes % 17.1 % Monocytes % 6.5 % Eosinophils % 0.6 % Basophils % 0.5 % Neutrophils Absolute (A) 10.8 (H) 1.5 - 6.6 10*3/uL Lymphocytes Absolute 2.5 1.0 - 3.5 10*3/uL Monocytes Absolute 0.9 0.0 - 0.9 10*3/uL Eosinophils Absolute 0.1 0.0 - 0.4 10*3/uL Basophils Absolute 0.1 0.0 - 0.2 10*3/uL Differential Type AUTOMATED DIFFERENTIAL Protime & INR Collection Time: 10/14/24 1:25 PM Result Value Ref Range PROTIME 13.2 9.8 - 13.2 sec INR 1.2 0.9 - 1.2 APTT Collection Time: 10/14/24 1:25 PM Result Value Ref Range APTT 26 26 - 37 sec Comprehensive metabolic panel Collection Time: 10/14/24 2:51 PM Result Value Ref Range SODIUM 137 134 - 146 mmol/L POTASSIUM 3.6 3.5 - 5.0 mmol/L CHLORIDE 107 98 - 109 mmol/L CARBON DIOXIDE 21 (L) 22 - 32 mmol/L ANION GAP 9 5 - 15 mmol/L BLOOD UREA NITROGEN 32 (H) 5 - 27 mg/dL CREATININE 1.17 0.70 - 1.20 mg/dL GLUCOSE 122 (H) 65 - 99 mg/dL CALCIUM 9.4 8.5 - 10.5 mg/dL TOTAL PROTEIN 8.8 (H) 6.0 - 8.0 g/dL ALBUMIN 4.4 3.2 - 5.3 g/dL ALKALINE PHOSPHATASE 156 (H) 39 - 130 U/L AST 22 <=41 U/L ALT 28 <=40 U/L BILIRUBIN,TOTAL 0.6 0.3 - 1.2 mg/dL EGFR Non-Race Dependent 68 >=60 ml/min/1.73sq.m Lipase Collection Time: 10/14/24 2:51 PM Result Value Ref Range LIPASE 58 (H) 17 - 40 U/L All plain film images(s) ,CT, Ultrasound and MRI have been read by the radiologist. Imaging--Reviewed: CT abdomen and pelvis with contrast Result Date: 10/14/2024 Narrative: STUDY: ABDOMEN AND PELVIS CT WITH CONTRAST CLINICAL HISTORY: Abdominal pain. Small bowelobstruction. Questionable small bowel obstruction COMPARISON: 04/07/2023 TECHNIQUE: CT abdomen and pelvis was performed utilizing 5 mm axial reconstructions following the uneventful administration of 100 cc Omnipaque 300 nonionic intravenous contrast. Coronal and sagittal reformatted images as well as delayed excretory phase images were obtained and reviewed. Automated exposure control was utilized. FINDINGS: Abdomen: No pleural or pericardial effusion and lung bases. Dependent changes and atelectasis in both lungs. Severe distention of the stomach. There is fluid-filled dilated small bowel loops with relatively decompressed distal small bowel loops could represent evolving ileus or obstruction. There is no evidence of free intraperitoneal gas. The liver, adrenal glands, pancreas and spleenappear grossly unremarkable. There is a calcified subcapsular left renal lesion stable likely representing sequela of prior subcapsular hematoma. No renal collecting system dilatation. No enlarged mesenteric or retroperitoneal lymph nodes. Pelvis: No free pelvic fluid. No enlarged pelvic lymph nodes. Urinary bladder is grossly unremarkable. Degenerative change of the thoracolumbar spine. No verteb ral body height loss. IMPRESSION: 1. Fluid-filled mildly dilated proximal small bowel loops and distention of the stomach represent evolving small bowel obstruction or ileus. Consider Gastrografin challenge. All CT scans at this facility use dose modulation, iterative reconstruction, and/or weight based dosing when appropriate to reduce radiation dose to as low as reasonably achievable. Finalized by Irwin Rivera MD on 10/14/2024 2:19 PM Fluoroscopy small bowel Result Date: 10/11/2024 Narrative: FL SMALL BOWEL HISTORY: Small bowel obstruction, abdominal distention COMPARISON: Same day abdominal radiograph FINDINGS: Images: 3, same day abdominal radiograph was used as contract modeler imaging. Para Educator view shows a few gas- filled loops of distended small bowel as well as gas within the large bowel and rectum. Enteric tube visualized with side-port terminating over the expected location of the stomach. Linear calcifications overlying the left renal fossa which correspond to peripherally calcified renal cyst visualized on CT abdomen and pelvis dated 04/07/2023. Suture material visualized in the left lower quadrant. Normal progression of enteric contrast in the small bowel. No significantlydilated loops of small bowel. Enteric contrast visualized to reach the cecum by 4 hours following administration via enteric tube. IMPRESSION: * No evidence of high-grade small bowel obstruction. Contrast progresses to large bowel by the 4 hour time point. Approved by Whitney Burciaga MD on 10/11/2024 2:44 PM I, Edmar Dos Santos MD have personally reviewed the image(s) and agree with and/or edited the report Finalized by Edmar Dos Santos MD on 10/11/2024 3:47 PM X-ray chest 1 view Result Date: 10/11/2024 Narrative: EXAM: XR CHEST 1 VW CLINICAL INFORMATION: rhonchi on exam. COMPARISON: 04/12/2023 FINDINGS: The tip of the gastric tube is in the stomach. There are low lung volumes with associated hypoventilatory changes. There may be a trace left pleural effusion. There is no pulmonary edema. There are no definite focal consolidations. Stable cardiomediastinal silhouette. Stable left chest wall devicewith a lead extending into the neck. IMPRESSION: 1. Gastric tube with tip in stomach. 2. Possible trace left pleural effusion. There is no evidence of pulmonary edema. Finalized by Rk Borges MD on 10/11/2024 1:16 PM X-ray abdomen ap 1 view Result Date: 10/11/2024 Narrative: EXAM: XR ABDOMEN AP 1 VW CLINICAL INFORMATION: f/u SBO. COMPARISON: 10/09/2024 FINDINGS: The tip of the gastric tube is in the stomach. There has been interval improvement in air-filled dilated loops of small bowel. There is no convincing evidence for obstruction on the current examination. Left lower quadrant postsurgical changes are noted. IMPRESSION: 1. Gastric tube tip in stomach. 2.Interval resolution of previously seen changes of small bowel obstruction. There is no convincing evidence for obstruction on the current examination. 3. Post surgical changes of the left lower quadrant. Finalized by Rk Borges MD on 10/11/2024 1:05 PM X-ray abdomen NG Tube placement 1 view Result Date: 10/09/2024 Narrative: Abdomen: HISTORY: Enteric tube placement. Single view of the abdomen was obtained. Enteric tube tip is likely within mid stomach. Small bowel is distended to approximately 5.7 cm. Findingssuggest small bowel obstruction. No free air. IMPRESSION: Suspect small bowel obstruction. Enteric tube tip within mid stomach. Finalized by Dimas Delgado MD on 10/09/2024 11:[address] abdomen and pelvis without contrast Result Date: 10/09/2024 Narrative: EXAM: CT ABDOMEN AND PELVIS WITHOUT CONTRAST 10/09/2024 02:17:59 PM TECHNIQUE: CT of theabdomen and pelvis was performed without the administration of intravenous contrast. Multiplanar reformatted images are provided for review. Automated exposure control, iterative reconstruction, and/or weight based adjustment of the mA/kV was utilized to reduce the radiation dose to as low as reasonably achievable. COMPARISON: XR Abdomen 08/21/2024; CT Abdomen Pelvis 08/18/2024. CLINICAL HISTORY:Diarrhea. FINDINGS: LOWER CHEST: No acute abnormality. LIVER: The liver is unremarkable. GALLBLADDER AND BILE DUCTS: Gallbladder is unremarkable. No biliary ductal dilatation. SPLEEN: No acute abnormality. PANCREAS: No acute abnormality. ADRENAL GLANDS: No acute abnormality. KIDNEYS, URETERS AND BLADDER: A partially calcified subcapsular hematoma is seen involving the left kidney and is similar to the prior examination. No stones in the kidneys or ureters. No hydronephrosis. No perinephric or periureteral stranding. Urinary bladder is unremarkable. GI AND BOWEL: Distended stomach without obstructing cause seen on this examination. Distended small bowel loops with air-fluid levels with air-fluid levels in the proximal aspect, although more normal caliber is seen distally. A definite transition point is not seen. PERITONEUM AND RETROPERITONEUM: No ascites. No free air. VASCULATURE: Aorta is normal in caliber. LYMPH NODES: No lymphadenopathy. REPRODUCTIVE ORGANS: The prostate is atrophic. BONES AND SOFT TISSUES: No acute osseous abnormality. No focal soft tissue abnormality. Impression: 1. Distended small bowel loops with air-fluid levels, without a definite transition point, possibly ileus 2. Partially calcified subcapsular hematoma involving the left kidney, similar tothe prior examination. Assesment: Primary Problem Small bowel obstruction (CMS-HCC) Principal Problem: Small bowel obstruction (CMS-HCC) Active Problems: Seizures (CMS-HCC) Mental retardation Class 2 obesity due to excess calories with body mass index (BMI) of 36.0 to 36.9 in adult Plan: IV normal saline at 1:25 a.m. mL/hour, IV Flagyl, IV Levaquin CT abdominal pelvis shows fluid-filled mildly dilated proximal small bowel loops. Consult general surgery NPO CBC, CMP, lipase level EPCs IV Pepcid 20 mg twice daily PT/OT to evaluate and treat Pain Control Restart home medications Labs and imaging reviewed from last 24 hours and results explained to patient Electronically signed by Sanam Guido MD Copy sent to Dr. CARSON DIOR MD This note is created with the assistance of a speech recognition program. While intending to generate a document that actually reflects the content of the visit, the document can still have some errors including those of syntax and sound a like substitutions which may escape proof reading. It such instances, actual meaning can be extrapolated by contextual diversion. [facility]08-12-2025 History and physical note* Sanam Guido MD - 10/14/2024 2:58 PM EDT [facility] Hospitalist / Family Medicine History and Physical Name: Amol Taylor Acct: [id number] Room: Admit Date: 10/14/2024 PCP: CARSON DIOR MD Chief Complaint: Chief Complaint Patient presents with Diarrhea Loose stools since yesterday, was discharged yesterday from [facility] with small bowel obstruction. History Obtained From: chart review and the patient. History of Present Illness: Amol Taylor is a 69 y.o. male with seizure, developmental delay presents with Diarrhea (Loose stools since yesterday, was discharged yesterday from [facility] with small bowel obstruction. ) Per EMS patient is having loose stools since yesterday. patient has been recently discharged from [facility] for concerns of small-bowel obstruction. Patient states that he had 1 episode of vomiting today. 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(jerking motions) // has a VNS implant which decreased grand mal seizures/ jerking episod weekly Uninodular goiter Urine incontinence Past Surgical History: Past Surgical History: Procedure Laterality Date CLAVICLE SURGERY COLONOSCOPY CYSTOCELE REPAIR 2016 EXCHANGE STIMULATOR BATTERY VAGAL NERVE N/A 03/23/2020 Performed by Nicola Mahan MD at [facility] 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 2004 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 REPAIR 7 months old SMALL INTESTINE SURGERY 1985, 1992, 1993 s/p diverticulitis; bowel obstruction x 2 Medications Prior to Admission: Prior to Admission medications Medication Sig Start Date End Date Taking? Authorizing Provider acetaminophen (TYLENOL EXTRA STRENGTH) 500 mg tablet Take 1 tablet (500 mg total) by mouth every 6 (six) hours as needed for pain. 03/23/20 Violette N Al- Embideen, MD albuterol (PROVENTIL HFA;VENTOLIN HFA) 90 mcg/actuation inhaler Inhale 2 puffs every 4 (four) hoursas needed for wheezing. 02/15/23 Christine Saini, DO benzonatate (TESSALON PERLES) 100 mg capsule Take 1 capsule (100 mg total) by mouth 3 (three) timesa day as needed for cough. 07/21/24 Not In System Ref Prov TAYE-GEST ANTACID 200 mg calcium (500 mg) chewable tablet Chew 1 tablet (200 mg total) and swallow in the morning and 1 tablet (200 mg total) before bedtime. 10/02/24 Not In System Ref Prov carbamide peroxide (DEBROX) 6.5 % otic solution Apply 4 ggt to both ear nightly once a month . Cotton ball then in am rinse with body temperature water using syringe in kit 11/12/18 Tyraida Robles, DO cholecalciferol, vitamin D3, (cholecalciferol) 1,000 units tablet Take 1 tablet (1,000 Units total)by mouth daily. 09/04/18 Tyra Ilo, DO cyanocobalamin 1000 MCG tablet Take 1 tablet (1,000 mcg total) by mouth in the morning. 04/19/23 Edilma Eastman MD diazePAM (DIASTAT ACUDIAL) 5-7.5-10 mg rectal kit Insert 20 mg into the rectum as needed for seizures (seizure > 15 minutes). Not In System Ref Prov finasteride (PROSCAR) 5 mg tablet Take 1 tablet (5 mg total) by mouth daily. 04/03/17 Tyra Ilo, DO hydrOXYzine (ATARAX) 25 mg tablet Take 1 tablet (25 mg total) by mouth every 12 (twelve) hours as needed for itching. Not In System Ref Prov lamoTRIgine (LaMICtal) 200 mg tablet Take 2 tablets (400 mg total) by mouth every morning. Not In System Ref Prov lamoTRIgine (LaMICtal) 200 mg tablet Take 3 tablets (600 mg total) by mouth nightly. Not In System Ref Prov latanoprost (XALATAN) 0.005 % ophthalmic solution Administer 1 drop to both eyes nightly. Not In System Ref Prov levETIRAcetam (KEPPRA) 1000 mg tablet Take 2 tablets (2,000 mg total) by mouth once daily at bedtime. 10/13/24 RALPH Maldonado levETIRAcetam (KEPPRA) 750 mg tablet Take 2 tablets (1,500 mg total) by mouth in the morning. 10/14/24 RALPH Maldonado LINZESS 145 mcg capsule Take 1 capsule (145 mcg total) by mouth every morning before breakfast. 10/02/24 Not In System Ref Prov LORazepam (ATIVAN) 0.5 mg tablet Take 1 tablet (0.5 mg total) by mouth every 8 (eight) hours as needed for anxiety. Not In System Ref Prov magnesium oxide (MAGOX) 400 mg tablet Take 1 tablet (400 mg total) by mouth in the morning. 04/19/23Edilma Eastman MD meclizine (ANTIVERT) 25 mg tablet Take 1 tablet (25 mg total) by mouth daily. 11/12/18 Tyra Ilo, DO melatonin 3 mg capsule Take 1 capsule by mouth nightly as needed (insomnia). Not In System Ref Prov olopatadine (PATADAY) 0.2 % drops Instill 1 drop to eye in the morning. 07/21/24 Not In System Ref Prov ondansetron ODT (ZOFRAN-ODT) 4 mg disintegrating tablet Dissolve 1 tablet (4 mg total) on tongue every 12 (twelve) hours as needed for nausea or vomiting. 04/03/17 Tyra Ilo, DO pantoprazole (PROTONIX) 40 mg EC tablet Take 1 tablet (40 mg total) by mouth in the morning. Not InSystem Ref Prov polyethylene glycol (GLYCOLAX) 17 gram packet Take 17 g by mouth 2 (two) times a day as needed (constipation). Not In System Ref Prov primidone (MYSOLINE) 250 mg tablet Take 1 tablet (250 mg total) by mouth in the morning. Not In System Ref Prov primidone (MYSOLINE) 250 mg tablet Take 1.5 tablets (375 mg total) by mouth nightly. Not In System Ref Prov SENEXON-S 8.6-50 mg Take 2 tablets by mouth in the morning. 09/16/24 Not In System Ref Prov tamsulosin (FLOMAX) 0.4 mg capsule,extended release 24hr Take 1 capsule (0.4 mg total) by mouth 2 (two) times a day. 04/03/17 Tyra Robles DO VIMPAT 150 mg tablet Take 1 tablet (150 mg total) by mouth 2 (two) times a day. 03/07/18 Tyra Robles DO Allergies: Penicillins, Sodium hypochlorite, Bleach (sodium hypochlorite), Tree nuts, and Clindamycin Social History: Tobacco: reports that he has never smoked. He has never used smokeless tobacco. Alcohol: reports no history of alcohol use. Drug Use: reports no history of drug use. Family History: Family History Problem Relation Age of Onset Thyroid cancer Mother Multiple myeloma Mother Arthritis Mother Heart disease Mother Pancreatitis Mother Lung cancer Father Diabetes Sister Hypertension Sister Diabetes Brother Heart disease Brother COPD Brother Review of Systems: All 10 systems reviewed and negative except as noted Review of Systems Constitutional: Negative for chills and fever. HENT: Negative for ear pain, hearing loss, rhinorrhea, sore throat and voice change. Eyes: Negative for pain and visual disturbance. Respiratory: Negative for cough and shortness of breath. Cardiovascular: Negative for chest pain, palpitations and leg swelling. Gastrointestinal: Positive for diarrhea. Negative for abdominal pain, nausea and vomiting. Endocrine: Negative for cold intolerance, heat intolerance, polydipsia, polyphagia and polyuria. Genitourinary: Negative for dysuria, flank pain and hematuria. Musculoskeletal: Negative for gait problem, joint swelling and neck pain. Skin: Negative for color change and rash. Allergic/Immunologic: Negative for immunocompromised state. Neurological: Negative for dizziness, syncope, weakness and headaches. Hematological: Does not bruise/bleed easily. Psychiatric/Behavioral: Negative for decreased concentration, dysphoric mood, self-injury and suicidal ideas. The patient is not nervous/anxious. Code Status: Full Code Physical Exam: Vitals: BP (!) 135/96 Pulse (!) 116 Temp 36.7 C (98 F) (Oral) Resp 18 Ht 167.6 cm (5' 5.98 ) Wt 103 kg (227 lb) SpO2 94% BMI 36.66 kg/m Temp (24hrs), Av.7 C (98 F), Min:36.7 C (98 F), Max:36.7 C (98 F) Physical Exam Vitals reviewed. Constitutional: General: He is not in acute distress. Appearance: Normal appearance. HENT: Head: Normocephalic and atraumatic. Mouth/Throat: Mouth: Mucous membranes are moist. Eyes: Conjunctiva/sclera: Conjunctivae normal. Cardiovascular: Rate and Rhythm: Normal rate and regular rhythm. Pulses: Normal pulses. Heart sounds: Normal heart sounds. Pulmonary: Effort: Pulmonary effort is normal. Breath sounds: Normal breath sounds. No wheezing or rales. Abdominal: General: Abdomen is flat. Bowel sounds are decreased. There is distension. Palpations: Abdomen is soft. Tenderness: There is no abdominal tenderness. Musculoskeletal: General: Normal range of motion. Cervical back: Normal range of motion and neck supple. Right lower leg: No edema. Left lower leg: No edema. Skin: General: Skin is warm and dry. Capillary Refill: Capillary refill takes less than 2 seconds. Neurological: Mental Status: He is alert. Data: Recent Results (from the past 24 hours) CBC auto differential Collection Time: 10/14/24 1:25 PM Result Value Ref Range WBC 14.4 (H) 4 - 11 x10E9/L RBC Count 4.68 4.1 - 5.7 X10E12/L Hemoglobin 14.9 13 - 17 g/dL Hematocrit 44.5 39 - 50 % MCV 95 80 - 100 fL MCH 31.7 27 - 34 pg MCHC 33.4 32 - 36 g/dL RDW 12.9 11.5 - 15 % Platelet Count 354 150 - 450 X10E9/L MPV 7.6 7 - 12 fL Neutrophils % 75.3 % Lymphocytes % 17.1 % Monocytes % 6.5 % Eosinophils % 0.6 % Basophils % 0.5 % Neutrophils Absolute (A) 10.8 (H) 1.5 - 6.6 10*3/uL Lymphocytes Absolute 2.5 1.0 - 3.5 10*3/uL Monocytes Absolute 0.9 0.0 - 0.9 10*3/uL Eosinophils Absolute 0.1 0.0 - 0.4 10*3/uL Basophils Absolute 0.1 0.0 - 0.2 10*3/uL Differential Type AUTOMATED DIFFERENTIAL Protime & INR Collection Time: 10/14/24 1:25 PM Result Value Ref Range PROTIME 13.2 9.8 - 13.2 sec INR 1.2 0.9 - 1.2 APTT Collection Time: 10/14/24 1:25 PM Result Value Ref Range APTT 26 26 - 37 sec Comprehensive metabolic panel Collection Time: 10/14/24 2:51 PM Result Value Ref Range SODIUM 137 134 - 146 mmol/L POTASSIUM 3.6 3.5 - 5.0 mmol/L CHLORIDE 107 98 - 109 mmol/L CARBON DIOXIDE 21 (L) 22 - 32 mmol/L ANION GAP 9 5 - 15 mmol/L BLOOD UREA NITROGEN 32 (H) 5 - 27 mg/dL CREATININE 1.17 0.70 - 1.20 mg/dL GLUCOSE 122 (H) 65 - 99 mg/dL CALCIUM 9.4 8.5 - 10.5 mg/dL TOTAL PROTEIN 8.8 (H) 6.0 - 8.0 g/dL ALBUMIN 4.4 3.2 - 5.3 g/dL ALKALINE PHOSPHATASE 156 (H) 39 - 130 U/L AST 22 <=41 U/L ALT 28 <=40 U/L BILIRUBIN,TOTAL 0.6 0.3 - 1.2 mg/dL EGFR Non-Race Dependent 68 >=60 ml/min/1.73sq.m Lipase Collection Time: 10/14/24 2:51 PM Result Value Ref Range LIPASE 58 (H) 17 - 40 U/L All plain film images(s) ,CT, Ultrasound and MRI have been read by the radiologist. Imaging--Reviewed: CT abdomen and pelvis with contrast Result Date: 10/14/2024 Narrative: STUDY: ABDOMEN AND PELVIS CT WITH CONTRAST CLINICAL HISTORY: Abdominal pain. Small bowelobstruction. Questionable small bowel obstruction COMPARISON: 04/07/2023 TECHNIQUE: CT abdomen and pelvis was performed utilizing 5 mm axial reconstructions following the uneventful administration of 100 cc Omnipaque 300 nonionic intravenous contrast. Coronal and sagittal reformatted images as well as delayed excretory phase images were obtained and reviewed. Automated exposure control was utilized. FINDINGS: Abdomen: No pleural or pericardial effusion and lung bases. Dependent changes and atelectasis in both lungs. Severe distention of the stomach. There is fluid-filled dilated small bowel loops with relatively decompressed distal small bowel loops could represent evolving ileus or obstruction. There is no evidence of free intraperitoneal gas. The liver, adrenal glands, pancreas and spleenappear grossly unremarkable. There is a calcified subcapsular left renal lesion stable likely representing sequela of prior subcapsular hematoma. No renal collecting system dilatation. No enlarged mesenteric or retroperitoneal lymph nodes. Pelvis: No free pelvic fluid. No enlarged pelvic lymph nodes. Urinary bladder is grossly unremarkable. Degenerative change of the thoracolumbar spine. No verteb ral body height loss. IMPRESSION: 1. Fluid-filled mildly dilated proximal small bowel loops and distention of the stomach represent evolving small bowel obstruction or ileus. Consider Gastrografin challenge. All CT scans at this facility use dose modulation, iterative reconstruction, and/or weight based dosing when appropriate to reduce radiation dose to as low as reasonably achievable. Finalized by Irwin Rivera MD on 10/14/2024 2:19 PM Fluoroscopy small bowel Result Date: 10/11/2024 Narrative: FL SMALL BOWEL HISTORY: Small bowel obstruction, abdominal distention COMPARISON: Same day abdominal radiograph FINDINGS: Images: 3, same day abdominal radiograph was used as contract modeler imaging. Para Educator view shows a few gas- filled loops of distended small bowel as well as gas within the large bowel and rectum. Enteric tube visualized with side-port terminating over the expected location of the stomach. Linear calcifications overlying the left renal fossa which correspond to peripherally calcified renal cyst visualized on CT abdomen and pelvis dated 04/07/2023. Suture material visualized in the left lower quadrant. Normal progression of enteric contrast in the small bowel. No significantlydilated loops of small bowel. Enteric contrast visualized to reach the cecum by 4 hours following administration via enteric tube. IMPRESSION: * No evidence of high-grade small bowel obstruction. Contrast progresses to large bowel by the 4 hour time point. Approved by Whitney Burciaga MD on 10/11/2024 2:44 PM I, Edmar Dos Santos MD have personally reviewed the image(s) and agree with and/or edited the report Finalized by Edmar Dos Santos MD on 10/11/2024 3:47 PM X-ray chest 1 view Result Date: 10/11/2024 Narrative: EXAM: XR CHEST 1 VW CLINICAL INFORMATION: rhonchi on exam. COMPARISON: 04/12/2023 FINDINGS: The tip of the gastric tube is in the stomach. There are low lung volumes with associated hypoventilatory changes. There may be a trace left pleural effusion. There is no pulmonary edema. There are no definite focal consolidations. Stable cardiomediastinal silhouette. Stable left chest wall devicewith a lead extending into the neck. IMPRESSION: 1. Gastric tube with tip in stomach. 2. Possible trace left pleural effusion. There is no evidence of pulmonary edema. Finalized by Rk Borges MD on 10/11/2024 1:16 PM X-ray abdomen ap 1 view Result Date: 10/11/2024 Narrative: EXAM: XR ABDOMEN AP 1 VW CLINICAL INFORMATION: f/u SBO. COMPARISON: 10/09/2024 FINDINGS: The tip of the gastric tube is in the stomach. There has been interval improvement in air-filled dilated loops of small bowel. There is no convincing evidence for obstruction on the current examination. Left lower quadrant postsurgical changes are noted. IMPRESSION: 1. Gastric tube tip in stomach. 2.Interval resolution of previously seen changes of small bowel obstruction. There is no convincing evidence for obstruction on the current examination. 3. Post surgical changes of the left lower quadrant. Finalized by Rk Borges MD on 10/11/2024 1:05 PM X-ray abdomen NG Tube placement 1 view Result Date: 10/09/2024 Narrative: Abdomen: HISTORY: Enteric tube placement. Single view of the abdomen was obtained. Enteric tube tip is likely within mid stomach. Small bowel is distended to approximately 5.7 cm. Findingssuggest small bowel obstruction. No free air. IMPRESSION: Suspect small bowel obstruction. Enteric tube tip within mid stomach. Finalized by Dimas Delgado MD on 10/09/2024 11:[address] abdomen and pelvis without contrast Result Date: 10/09/2024 Narrative: EXAM: CT ABDOMEN AND PELVIS WITHOUT CONTRAST 10/09/2024 02:17:59 PM TECHNIQUE: CT of theabdomen and pelvis was performed without the administration of intravenous contrast. Multiplanar reformatted images are provided for review. Automated exposure control, iterative reconstruction, and/or weight based adjustment of the mA/kV was utilized to reduce the radiation dose to as low as reasonably achievable. COMPARISON: XR Abdomen 08/21/2024; CT Abdomen Pelvis 08/18/2024. CLINICAL HISTORY:Diarrhea. FINDINGS: LOWER CHEST: No acute abnormality. LIVER: The liver is unremarkable. GALLBLADDER AND BILE DUCTS: Gallbladder is unremarkable. No biliary ductal dilatation. SPLEEN: No acute abnormality. PANCREAS: No acute abnormality. ADRENAL GLANDS: No acute abnormality. KIDNEYS, URETERS AND BLADDER: A partially calcified subcapsular hematoma is seen involving the left kidney and is similar to the prior examination. No stones in the kidneys or ureters. No hydronephrosis. No perinephric or periureteral stranding. Urinary bladder is unremarkable. GI AND BOWEL: Distended stomach without obstructing cause seen on this examination. Distended small bowel loops with air-fluid levels with air-fluid levels in the proximal aspect, although more normal caliber is seen distally. A definite transition point is not seen. PERITONEUM AND RETROPERITONEUM: No ascites. No free air. VASCULATURE: Aorta is normal in caliber. LYMPH NODES: No lymphadenopathy. REPRODUCTIVE ORGANS: The prostate is atrophic. BONES AND SOFT TISSUES: No acute osseous abnormality. No focal soft tissue abnormality. Impression: 1. Distended small bowel loops with air-fluid levels, without a definite transition point, possibly ileus 2. Partially calcified subcapsular hematoma involving the left kidney, similar tothe prior examination. Assesment: Primary Problem Small bowel obstruction (CMS-HCC) Principal Problem: Small bowel obstruction (CMS-HCC) Active Problems: Seizures (CMS-HCC) Mental retardation Class 2 obesity due to excess calories with body mass index (BMI) of 36.0 to 36.9 in adult Plan: IV normal saline at 1:25 a.m. mL/hour, IV Flagyl, IV Levaquin CT abdominal pelvis shows fluid-filled mildly dilated proximal small bowel loops. Consult general surgery NPO CBC, CMP, lipase level EPCs IV Pepcid 20 mg twice daily PT/OT to evaluate and treat Pain Control Restart home medications Labs and imaging reviewed from last 24 hours and results explained to patient Electronically signed by Sanam Guido MD Copy sent to Dr. CARSON DIOR MD This note is created with the assistance of a speech recognition program. While intending to generate a document that actually reflects the content of the visit, the document can still have some errors including those of syntax and sound a like substitutions which may escape proof reading. It such instances, actual meaning can be extrapolated by contextual diversion. documented in this [facility]Gre[facility] Physician Emergency department Note* Dian Randall MD - 10/14/2024 11:18 AM EDT Images from the original note were not included. [facility] - EMERGENCY Pt Name: Amol Taylor Birthdate: 1955 Chief Complaint: Chief Complaint Patient presents with Diarrhea Loose stools since yesterday, was discharged yesterday from [facility] with small bowel obstruction. History of Present Illness: Initial evaluation performed at 11:[address] Randall. Patient is a 69 y.o. male who presents to the ED by EMS from group home for evaluation of diarrhea. EMS stated that yesterday he was just releases from [facility] after being admitted for a small bowel obstruction. EMS stated the nurses were concerned after he had loose stools today. Pt denied any pain. Pt states he did have emesis, but did not state when he did. 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) // has a VNS implant which decreased grand mal seizures/ jerking episod weekly Uninodular goiter Urine incontinence Past Surgical History: Past Surgical History: Procedure Laterality Date CLAVICLE SURGERY COLONOSCOPY CYSTOCELE REPAIR 2016 EXCHANGE STIMULATOR BATTERY VAGAL NERVE N/A 03/23/2020 Performed by Nicola Maahn MD at [facility] 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 2005 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 REPAIR 7 months old SMALL INTESTINE SURGERY 1985, 1992, 1993 s/p diverticulitis; bowel obstruction x 2 Family History: Family History Problem Relation Age of Onset Thyroid cancer Mother Multiple myeloma Mother Arthritis Mother Heart disease Mother Pancreatitis Mother Lung cancer Father Diabetes Sister Hypertension Sister Diabetes Brother Heart disease Brother COPD Brother Social History: Social History Socioeconomic History Marital status: Single Number of children: 0 Occupational History Occupation: [employer] 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 Tobacco Use Smoking status: Never Smokeless tobacco: Never Substance and Sexual Activity Alcohol use: No Drug use: No Sexual activity: Never Social Drivers of Health Food Insecurity: No Food Insecurity (10/14/2024) Hunger Screening Food Insecurity - Worry: Never True Food Insecurity - Inability: Never True Transportation Needs: Patient Unable To Answer (10/10/2024) PRAPARE - Transportation Lack of Transportation (Medical): Patient unable to answer Lack of Transportation (Non-Medical): Patient unable to answer Interpersonal Safety: Patient Unable To Answer (10/10/2024) Humiliation, Afraid, Rape, and Kick questionnaire Fear of Current or Ex-Partner: Patient unable to answer Emotionally Abused: Patient unable to answer Physically Abused: Patient unable to answer Sexually Abused: Patient unable to answer Housing Instability: Patient Unable To Answer (10/10/2024) Housing Instability Housing Instability: Patient unable to answer Review of Systems: Review of Systems Physical Exam: ED Triage Vitals Temp Pulse Resp BP SpO2 -- -- -- -- -- Temp src Heart Rate Source Patient Position BP Location FiO2 (%) -- -- -- -- -- Vitals: 10/14/24 1122 10/14/24 1237 BP: 135/87 118/82 Temp: 36.7 C (98 F) TempSrc: Oral Pulse: (!) 116 Resp: 18 SpO2: 94% 93% MAP (mmHg): 96 Height: 167.6 cm (5' 5.98 ) Weight: 103 kg (227 lb) Physical Exam Vitals reviewed. HENT: Head: Normocephalic and atraumatic. Eyes: Conjunctiva/sclera: Conjunctivae normal. Cardiovascular: Rate and Rhythm: Normal rate. Pulmonary: Effort: Pulmonary effort is normal. Breath sounds: Normal breath sounds. Abdominal: General: Bowel sounds are decreased. There is distension (soft). Palpations: Abdomen is soft. Comments: Slight tympanitic sound on palpation Musculoskeletal: General: Normal range of motion. Cervical back: Normal range of motion and neck supple. Skin: General: Skin is warm and dry. Neurological: General: No focal deficit present. Mental Status: He is alert and oriented to person, place, and time. GCS: GCS eye subscore is 4. GCS verbal subscore is 5. GCS motor subscore is 6. Procedure: Procedures Re-evaluation: Re-Evaluation Medical Decision Making Amount and/or Complexity of Data Reviewed Labs: ordered. Radiology: ordered and independent interpretation performed. Details: Imaging was independently viewed and is notable for significant gastric dilation and distended loops of bowel . However, pending official radiologist read. Discussion of management or test interpretation with external provider(s): 2:[address] Ge (Surgery), who reviewed case. He states that he will consult with the hospitalist here if they will admit him. 2:[address] Guido (Hospitalist), who reviewed case and is agreeable to admit the patient for further care and evaluation. Risk Prescription drug management. ED Course: Clinical Impressions as of 10/15/24 1552 Small bowel obstruction (CMS-HCC) Urinary retention . ED Disposition ED Disposition Admit Date/Time SunOct 14, 2024 2:55 PM Comment At this time, the patient has objective evidence of an acute process that will likely require hospitalization for greater than 2 midnights. The patient will be admitted. . Please note that portions of this note were completed with a voice recognition program. Efforts were made to edit the dictations but occasionally words are mis-transcribed. Jarra Morrison 10/14/24 1123 Jarra Morrison 10/14/24 1127 Jarra Morrison 10/14/24 1420 Jarra Morrison 10/14/24 1442 Jarra Morrison 10/14/24 1444 Jarra Morrison 10/14/24 1455 Dian Randall MD 10/15/24 1718 [facility] [id number] Miscellaneous Notes* Telephone Encounter - Blanca Aguirre - 10/11/2024 8:55 PM EDT [facility], already got answer through chat documented in this encounterGreene [facility]08-09-2025 Telephone encounter Note* Telephone Encounter - Blanca Aguirre - 10/11/2024 8:55 PM EDT Contract: 138 [facility]uca No page needed, already got answer through chat [facility]08-07-[facility] Miscellaneous Notes* Telephone Encounter - Lisha Dakota - 10/09/2024 10:22 PM EDT Contract: 170 Access calling for bowel obstruction. At [facility]. Transfer to [facility]. * Telephone Encounter - Lisha Duncan - 10/09/2024 10:22 PM EDT Contract: [address] Goyo james and connected with June. documented in this encounterGreene [facility]08-07-2025 Telephone encounter Note* Telephone Encounter - Lisha Duncan - 10/09/2024 10:22 PM EDT Contract: 170 Access calling for bowel obstruction. At [place] [facility]. Transfer to [facility]. [facility]08-07-[facility] Telephone encounter Note* Telephone Encounter - Lisha Duncan - 10/09/2024 10:22 PM EDT Contract: [address] Goyo cell and connected with June. [facility]07-09-2025 History of Present illness Narrative* Carson Dior MD - 09/10/2024 11:28 AM EDTAssociated Problem(s): Partial small bowel obstruction (HCC) Doing well since home. Continue pureed diet with thickened liquids. Continue medications as directed. * Carson Dior MD - 09/10/2024 11:00 AM EDT Images from the original note were not included. Subjective Patient ID: Amol Taylor is a 69 y.o. male who presents for Follow-up (Hospital f/up). Hospital f/u from 08/18-08/21 for UTI and partial SBO. History of MR and lives in [facility]. Patientdeveloped vomiting. History of recurrent SOB and does not c/o pain. To ER and imaging showed partial SBO. NG placed and admitted. Urine showed UTI and on antibiotics. Improved with conservative treatment. Symptoms improved. NG clamped and started liquid diet. Tolerated well and advanced to soft diet. Discharged home and back on puree diet with thickened liquids. Completed anitibiotics. Doing wellsince home. Normal appetite and no emesis or diarrhea. Daily BM. No cough or SOB. Review of Systems Constitutional: Negative for fatigue. Respiratory: Negative for cough, shortness of breath and wheezing. Cardiovascular: Negative for chest pain and palpitations. Gastrointestinal: Negative for abdominal pain, diarrhea, nausea and vomiting. Genitourinary: Negative for dysuria. Objective Physical Exam Constitutional: General: He is not in acute distress. Appearance: Normal appearance. HENT: Head: Normocephalic. Right Ear: Tympanic membrane and ear canal normal. Left Ear: Tympanic membrane and ear canal normal. Eyes: Extraocular Movements: Extraocular movements intact. Pupils: Pupils are equal, round, and reactive to light. Cardiovascular: Rate and Rhythm: Normal rate and regular rhythm. Heart sounds: No murmur heard. No friction rub. No gallop. Pulmonary: Breath sounds: Normal breath sounds. No wheezing, rhonchi or rales. Abdominal: General: Bowel sounds are normal. There is no distension. Palpations: Abdomen is soft. Tenderness: There is no abdominal tenderness. There is no guarding or rebound. Musculoskeletal: Left lower leg: No edema. Neurological: Mental Status: He is alert. Assessment/Plan Problem List Items Addressed This Visit Partial small bowel obstruction (HCC) - Primary Doing well since home. Continue pureed diet with thickened liquids. Continue medications as directed. documented in this encounterHermann Area District [id number] History of Present illness Narrative* Meera Goodson RN - 08/21/2024 11:34 AM EDT Patient left at this time with transportation from [facility] via wheelchair. All belongings and paperwork with patient. * Meera Goodson RN - 08/21/2024 10:17 AM EDT Report given to Berna at [facility]. States she will have someone come get him at 1200. * Meera Goodson RN - 08/21/2024 9:45 AM EDT Updated Susan (legal guardian) that patient is going back to [facility] today. * Meera Goodson RN - 08/21/2024 6:50 AM EDT Vitals and assessment completed at this time as charted. Pt assisted up to chair x1, unsteady with walker. Chair alarm on and call light within reach. Pt denies pain and nausea. Ordered regular diet tray for breakfast. Active bowel sounds. No other concerns. Brief dry. Fall precautions in place. Care ongoing. * Tirso Bedolla RN - 08/20/2024 6:51 PM EDT Pt alert and oriented x4 resting comfortably in chair at this time. Vitals and assessment completedas charted. Pt denies any pain or current needs at this time. Call light is within reach, chair alarm on. Care ongoing. * Yennifer Cuevas PTA - 08/20/2024 3:40 PM EDT Physical Therapy Facility/Department: [facility] MED SURG Daily Treatment Note NAME: Amol Taylor : 1955 Date of Service: 08/20/2024 Discharge Recommendations: Continue to assess pending progress, Display Associate Care with PT Patient Diagnosis(es): The primary encounter diagnosis was SBO (small bowel obstruction) (HCC). Diagnoses of Ileitis, Complicated UTI (urinary tract infection), Sinus tachycardia, Abnormal ECG, Smallbowel obstruction (HCC), Pneumatosis intestinalis, Seizure disorder (HCC), Dysphagia, unspecified type, S/P placement of VNS (vagus nerve stimulation) device, Intellectual disability, AFTAB (obstructive sleep apnea), and MR (mental retardation), severe were also pertinent to this visit. Assessment Assessment: Reclined and seated exercises bLe x15 with AAROM and verbal cues for participation frompt. Pt. falling asleep during treatment but easy to wake. Activity Tolerance: Treatment limited secondary to decreased cognition;Patient tolerated treatment well Plan Physical Therapy Plan General Plan: 2 times a day 7 days a week Specific Instructions for Next Treatment: 1x/ day on weekends Current Treatment Recommendations: Strengthening;ROM;Balance training;Functional mobility training;Transfer training;ADL/Self-care training;IADL training;Manual;Neuromuscular re-education;Gait training;Stair training;Endurance training;Home exercise program;Safety education & training;Patient/Caregiver education & training;Therapeutic activities;Positioning Restrictions Restrictions/Precautions Restrictions/Precautions: Fall Risk, NPO, General Precautions Activity Level: Up with Assist Required Braces or Orthoses?: No Subjective Subjective Subjective: Pt seated in chair upon arrival and is agreeable to exercises at this time. Pain: denies Objective Bed Mobility Training Bed Mobility Training: No Transfer Training Transfer Training: No Gait Gait Training: No PT Exercises Exercise Treatment: Reclined and seated B LE exercises x15 reps in all available planes of motion with AAROM and frequent verbal and tactile cues for continued movement Safety Devices Type of Devices: All fall risk precautions in place;Call light within reach;Chair alarm in place;Left in chair Goals Short Term Goals Time Frame for Short Term Goals: 10 days Short Term Goal 1: Patient will ambulate 25' with CGA, LRAD, without LOB Short Term Goal 2: Patient will perform transfers and bed mobility tasks with VT Short Term Goal 3: Patient will tolerate 20-30 minutes of therex/act to improve endurance for ADLs. Patient Goals Patient Goals : No stated goals Education Patient Education Education Given To: Patient Education Provided: Role of Therapy;Plan of Care Education Method: Verbal Barriers to Learning: Cognition Education Outcome: Verbalized understanding Therapy Time Individual Concurrent Group Co-treatment Time In 1315 Time Out 1339 Minutes 24 Yennifer Cuevas PTA Cosigned by Salina Giles PT at 08/20/2024 4:01 PM EDT * Meera Goodson RN - 08/20/2024 12:54 PM EDT Pt tolerated clear liquid diet for lunch well. Denies complaints. Incontinent of urine, gina care performed and linens changed. * Meera Goodson RN - 08/20/2024 11:54 AM EDT Pt sitting up in chair, denies nausea and abdominal pain, had a medium BM this morning, no complaints since NG tube removed. Has not wanted to drink any water, RN has tried twice. Lunch tray set up in front of patient, will encourage patient to eat. * Kelli Alcantar - 08/20/2024 11:34 AM EDT Echocardiogram/Doppler done at bedside. Instructed on policies and procedures. Patient tolerated the exam well. * Edelmira Palumbo PTA - 08/20/2024 9:56 AM EDT Physical Therapy Facility/Department: [facility] Daily Treatment Note NAME: Amol Taylor : 1955 Date of Service: 08/20/2024 Discharge Recommendations: Continue to assess pending progress, Display Associate Care with PT Patient Diagnosis(es): The primary encounter diagnosis was SBO (small bowel obstruction) ([facility]). Diagnoses of Ileitis, Complicated UTI (urinary tract infection), Sinus tachycardia, Abnormal ECG, Smallbowel obstruction (HCC), Pneumatosis intestinalis, Seizure disorder (HCC), Dysphagia, unspecified type, S/P placement of VNS (vagus nerve stimulation) device, Intellectual disability, AFTAB (obstructive sleep apnea), and MR (mental retardation), severe were also pertinent to this visit. Assessment Assessment: Pt was seated in bedside chair and was agreeable to exercises. Pt completed reclined and seated B LE exercises x15 reps in all available planes of motion with AAROM and frequent verbal and tactile cues for continued movement with patient frequently closing eyes and falling asleep and was able to wake up easily to continue. Activity Tolerance: Treatment limited secondary to decreased cognition;Patient tolerated treatment well Plan Physical Therapy Plan General Plan: 2 times a day 7 days a week Specific Instructions for Next Treatment: 1x/ day on weekends Current Treatment Recommendations: Strengthening;ROM;Balance training;Functional mobility training;Transfer training;ADL/Self-care training;IADL training;Manual;Neuromuscular re-education;Gait training;Stair training;Endurance training;Home exercise program;Safety education & training;Patient/Caregiver education & training;Therapeutic activities;Positioning Restrictions Restrictions/Precautions Restrictions/Precautions: Fall Risk, NPO, General Precautions Activity Level: Up with Assist Required Braces or Orthoses?: No Subjective Subjective Subjective: Pt seated in chair upon arrival and is agreeable to exercises at this time. Pain: denies Objective Bed Mobility Training Bed Mobility Training: No Transfer Training Transfer Training: No Gait Gait Training: No PT Exercises Exercise Treatment: Reclined and seated B LE exercises x15 reps in all available planes of motion with AAROM and frequent verbal and tactile cues for continued movement Safety Devices Type of Devices: All fall risk precautions in place;Call light within reach;Chair alarm in place;Left in chair Goals Short Term Goals Time Frame for Short Term Goals: 10 days Short Term Goal 1: Patient will ambulate 25' with CGA, LRAD, without LOB Short Term Goal 2: Patient will perform transfers and bed mobility tasks with VT Short Term Goal 3: Patient will tolerate 20-30 minutes of therex/act to improve endurance for ADLs. Patient Goals Patient Goals : No stated goals Education Patient Education Education Given To: Patient Education Provided: Role of Therapy;Plan of Care Education Method: Verbal Barriers to Learning: Cognition Education Outcome: Verbalized understanding Therapy Time Individual Concurrent Group Co-treatment Time In 925 Time Out 0949 Minutes 23 Edelmira Palumbo PTA Cosigned by Yun Knight PT at 08/20/2024 10:23 AM EDT * Andreas Heller OT - 08/20/2024 8:25 AM EDT Occupational Therapy Facility/Department: [facility] Occupational Therapy Initial Assessment Name: Amol Taylor : 1955 Date of Service: 08/20/2024 Discharge Recommendations: Subacute/[facility]ci Facility, Display Associate Care without OT, Continue to assess pending progress Patient Diagnosis(es): The primary encounter diagnosis was SBO (small bowel obstruction) (HCC). Diagnoses of Ileitis, Complicated UTI (urinary tract infection), Sinus tachycardia, Abnormal ECG, Smallbowel obstruction (HCC), Pneumatosis intestinalis, Seizure disorder (HCC), Dysphagia, unspecified type, S/P placement of VNS (vagus nerve stimulation) device, Intellectual disability, AFTAB (obstructive sleep apnea), and MR (mental retardation), severe were also pertinent to this visit. Past Medical History: has a past medical history of Arthritis, BPH (benign prostatic hyperplasia), Dysphagia, GERD (gastroesophageal reflux disease), Hearing loss, HLD (hyperlipidemia), Insomnia, MR (mental retardation), Periorbital cellulitis, SBO (small bowel obstruction) ([facility]), Seizures (HCC), Ve ntral hernia, and Vitamin D deficiency. Past Surgical History: has a past surgical history that includes Abdomen surgery (2012, 2013); laparoscopy (10/19/13); laparotomy (10/19/13); cast application (Left); Hydrocele surgery (10/2015); Vagusnerve stimulator insertion; and Vagus nerve stimulator insertion (12/14/2015). Treatment Diagnosis: Weakness Assessment Performance deficits / Impairments: Decreased functional mobility ;Decreased safe awareness;Decreased balance;Decreased coordination;Decreased ADL status;Decreased cognition;Decreased ROM;Decreased endurance;Decreased high- level IADLs;Decreased strength Assessment: 69 year old male admitted to [facility] due to SBO. Patient presents with general weakness requiring supervision and increased time for ADLs. Patient denies dizziness or SOB with activity. Patient would benefit from skilled OT services to address deficits listed above to ensure safe return to living at prior level of care ([facility]). Treatment Diagnosis: Weakness Prognosis: Fair Decision Making: Medium Complexity REQUIRES OT FOLLOW-UP: Yes Plan Occupational Therapy Plan Times Per Day: Once a day Days Per Week: 7 Days Current Treatment Recommendations: Strengthening, ROM, Balance training, Functional mobility training, Endurance training, Safety education & training, Equipment evaluation, education, & procurement, Self-Care / ADL, Patient/Caregiver education & training Restrictions Restrictions/Precautions Restrictions/Precautions: Fall Risk, NPO, General Precautions Activity Level: Up with Assist Required Braces or Orthoses?: No Subjective General Chart Reviewed: Yes Patient assessed for rehabilitation services?: Yes Family / Caregiver Present: No Subjective Subjective: Pt supine in bed upon arrival, denies pain and agreeable to OT eval. Pt requesting to use BSC for BM. Social/Functional History Social/Functional History Additional Comments: The patient lives in a [facility] per chart review. He reports he does not usean AD to ambulate. He does need help with bathing, self care (hygiene) and dressing per patient. Objective Hearing Hearing: Within functional limits Observation/Palpation Posture: Fair Safety Devices Type of Devices: All fall risk precautions in place;Chair alarm in place;Call light within reach;Left in chair;Nurse notified AROM: Generally decreased, functional (Decreased movement above 90 degrees at shoulders and tendency to hold hands / digits in flexed position. Able to extend upon command.) PROM: Within functional limits Strength: Generally decreased, functional Coordination: Generally decreased, functional Tone: Normal Sensation: Intact ADL Feeding: Setup Grooming: Minimal assistance UE Bathing: Moderate assistance UE Bathing Skilled Clinical Factors: seated LE Bathing: Maximum assistance LE Bathing Skilled Clinical Factors: seated UE Dressing: Minimal assistance LE Dressing: Maximum assistance;Dependent/Total LE Dressing Skilled Clinical Factors: Dependent for donning brief. Putting On/Taking Off Footwear: Dependent/Total Putting On/Taking Off Footwear Skilled Clinical Factors: Dependent for donning socks; pt denied attempt to try. Toileting: Dependent/Total Toileting Skilled Clinical Factors: Dependent for hygiene management following BM. Functional Mobility: Minimal assistance;Moderate assistance Functional Mobility Skilled Clinical Factors: Min A bed mobility; Min / Mod A sit-stand and Min A transfer to BSC and chair with FWW and gait belt. Product Used : Soap and water Cognition Following Commands: Follows one step commands with repetition Attention Span: Impaired Memory: Impaired Safety Judgement: Impaired Problem Solving: Impaired Insights: Impaired Cognition Comment: Pt aware of pain and need for assist; impulsiveness noted and increased vc's formotor plan with walker use during transfers. Education Given To: Patient Education Provided: Role of Therapy;Transfer Training;Plan of Care Education Method: Verbal;Demonstration Education Outcome: Unable to demonstrate understanding;Continued education needed AM-PAC - ADL AM-PAC Daily Activity - Inpatient How much help is needed for putting on and taking off regular lower body clothing?: A Lot How much help is needed for bathing (which includes washing, rinsing, drying)?: A Lot How much help is needed for toileting (which includes using toilet, bedpan, or urinal)?: A Lot How much help is needed for putting on and taking off regular upper body clothing?: A Little How much help is needed for taking care of personal grooming?: A Little How much help for eating meals?: A Little AM-PAC Inpatient Daily Activity Raw Score: 15 AM-PAC Inpatient ADL T-Scale Score : 34.69 ADL Inpatient CMS 0-100% Score: 56.46 ADL Inpatient CMS G-Code Modifier : CK Goals Short Term Goals Time Frame for Short Term Goals: 21 visits Short Term Goal 1: Pt to complete BUE the ex / ther act to improve overall strength and endurance for ease with functional tranfers and self care tasks. Short Term Goal 2: Pt will complete ADL tasks safely and with min A at EOB or sink without signs ofSOB/fatigue. Short Term Goal 3: Pt to be educated on d/c folder, AE/DME, and home safety to ensure safe and indep return to prior level of care. Therapy Time Individual Concurrent Group Co-treatment Time In 0745 Time Out 0809 Minutes 24 Andreasvito Heller OT Cosigned by Lyla Burciaga MD at 08/20/2024 7:06 PM EDT * Meera Goodson RN - 08/20/2024 7:23 AM EDT Vitals and assessment completed at this time as charted. Pt resting in bed. Oriented to self and situation, knows he is in [place]. Denies pain. Noted tachypnea and rhonchi/snoring. Pt denies SOB. Spo2 stable. Attempt to have patient void in urinal but was unable to. NG tube in right nare at LIS, minimal output. Pt denies nausea. States I'm not getting up to the chair . Bed alarm on and call light within reach. Will notify provider of clinical concerns. * Dorota Woodson APRN - OTONIEL - 08/20/2024 6:25 AM EDT Progress Note SUBJECTIVE: Patient seen for f/u of SBO (small bowel obstruction) ([facility]). He resting in bed no distress. NG to LIWS. Minimal output. No complaints. No BM reported . Flushed NG appears to be thick and mucous. ROS: Constitutional: negative for fevers, and negative [...] otherwise stated in HPI OBJECTIVE: Vitals: Vitals: 08/20/24 0714 BP: (!) 148/78 Pulse: 95 Resp: (!) 36 Temp: 98.2 F (36.8 C) SpO2: 95% Weight - Scale: 100.1 kg (220 lb 9.6 oz) Height: 177.8 cm (5' 10 ) Weight Wt Readings from Last 3 Encounters: 08/19/24 100.1 kg (220 lb 9.6 oz) 07/16/24 97.1 kg (214 lb) 06/19/24 93.6 kg (206 lb 4.8 oz) Body mass index is 31.65 kg/m . 24HR INTAKE/OUTPUT: Intake/Output Summary (Last 24 hours) at 08/20/2024 0859 Last data filed at 08/20/2024 0714 Gross per 24 hour Intake 2536.83 ml Output 650 ml Net 1886.83 ml Exam: GEN: Awake, alert and pleasant. EYES: EOMI, pupils equal NECK: Supple. No [...] Diagnostic Data: Complete Blood Count: Recent Labs 08/18/24182308/19/2452408/20/24 0456 WBC 14.8* 11.6* 14.4* RBC 4.30 4.10* 3.73* HGB 14.0 13.0 12.2* HCT 43.2 40.3* 36.7* MCV 100.5 98.3 98.4 MCH 32.6 31.7 32.7 MCHC 32.4 32.3 33.2 RDW 12.9 13.0 12.6 PLT 285 263 185 MPV 8.8 8.9 8.8 Last 3 Blood Glucose: Recent Labs 08/18/24182308/19/2452408/20/24 0456 GLUCOSE 90 95 102* Comprehensive Metabolic Profile: Recent Labs 08/18/24182308/19/2452408/20/24 0456 NA 140 137 136 K 3.9 4.2 3.9 CL 106 107 103 CO2 22 18* 21 BUN 23 20 14 CREATININE 1.1 0.9 0.8 GLUCOSE 90 95 102* CALCIUM 9.5 8.6 8.3* BILITOT <0.2 -- -- ALKPHOS 201* -- -- AST 17 -- -- ALT 16 -- -- Urinalysis: Lab Results Component Value Date/Time NITRU NEGATIVE 08/18/2024 06:30 PM COLORU Yellow 08/18/2024 06:30 PM PHUR 6.0 08/18/2024 06:30 PM PHUR 6.0 06/11/2023 03:28 PM WBCUA 20 TO 50 07/14/2024 09:00 AM RBCUA 0 TO 2 07/14/2024 09:00 AM MUCUS 1+ 07/14/2024 09:00 AM TRICHOMONAS NOT REPORTED 12/05/2018 06:15 AM YEAST NOT REPORTED 12/05/2018 06:15 AM BACTERIA 3+ 07/14/2024 09:00 AM LEUKOCYTESUR NEGATIVE 08/18/2024 06:30 PM UROBILINOGEN Normal 08/18/2024 06:30 PM BILIRUBINUR NEGATIVE 08/18/2024 06:30 PM GLUCOSEU NEGATIVE 08/18/2024 06:30 PM GLUCOSEU NEGATIVE 10/31/2010 12:33 PM KETUA NEGATIVE 08/18/2024 06:30 PM AMORPHOUS 2+ 06/12/2022 11:10 AM HgBA1c: No results found for: LABA1C Lactic Acid: Lab Results Component Value Date/Time LACTA 1.7 07/14/2024 07:36 AM LACTA 0.6 06/12/2023 05:10 AM LACTA 1.3 09/02/2022 07:35 PM Troponin: No results for input(s): TROPONINI in the last 72 hours. CRP: No results for input(s): CRP in the last 72 hours. Radiology/Imaging: XR CHEST PORTABLE Final Result No acute cardiopulmonary process. XR ABDOMEN (KUB) (SINGLE AP VIEW) Final Result Overall improvement in small bowel and colonic dilation. Enteric tube is no longer visualized. XR ABDOMEN (KUB) (SINGLE AP VIEW) Final Result Multiple dilated loops of small and large bowel, which may represent ileus or partial small bowel obstruction. XR ABDOMEN FOR NG/OG/NE TUBE PLACEMENT Final Result Endo gastric tube tip projects over the gastric body. CT ABDOMEN PELVIS W IV CONTRAST Additional Contrast? None Final Result 1. History of small-bowel obstruction with prior partial resection and anastomosis in the left lower quadrant. 2. Current pattern of dilation of the stomach, small bowel and transverse colon with no focal transition point. Ileus or enteritis may be considered. A partial small bowel obstruction cannot be excluded given prior history. 3. Stable subcapsular hematoma of the left kidney. XR ABDOMEN (KUB) (SINGLE AP VIEW) (Results Pending) ASSESSMENT / PLAN: MEDICAL DECISION MAKING: Primary Problem(s): SBO (small bowel obstruction) (HCC) Differential diagnoses: Ileus Condition is an undiagnosed new problem with uncertain prognosis Condition is stable Treatment plan: Appreciate Gen Surgery Will try CL diet today Clamp NG Up to chair Imaging: Abdominal x-ray daily Medications: IV fluids Pepcid Medication Monitoring / High Risk Medications: none EKG changes Condition is stable Treatment plan: Telemetry monitoring Trend EKGs and troponin Cardiology consult Imaging: ECHO Medications: Lovenox Nutrition status: at risk for malnutrition Dermatology Nurse Practitioner consult initiated I/O Daily weight Monitor Daily intake Nutritional Supplements as tolerated MALNUTRITION ASSESSMENT AND PLAN The following was documented by the Dietitian: Malnutrition Assessment Context of Malnutrition: Acute Illness (08/19/24711) Acute Illness - Energy Intake : Mild decrease in energy intake (at least acutely) (08/19/24711) Acute Illness - Weight Loss : No weight loss (08/19/24711) Acute Illness - Body Fat Loss: No body fat loss (08/19/24711) Acute Illness - Muscle Mass Loss: No muscle mass loss (08/19/24711) Acute Illness - Fluid Accumulation : Mild (08/19/24711) Acute Illness - Zoning Engineer Strength: Not Performed (08/19/24711) Acute Illness - Malnutrition Score: 1 (08/19/24711) Malnutrition Status: At risk for malnutrition (08/19/24711) I agree with the dietitian's malnutrition assessment. Medical Nutrition Therapy: npo Hospital Prophylaxis: DVT: Lovenox Stress Ulcer: H2 Klarissa Disposition: Shared decision making: All test results, treatment options and disposition options were discussed with the patient today Social determinants of health that may impact management: resides in [facility] Code status: Full Code Disposition: Discharge plan is pending [facility] Advanced Care Planning documentation: [x] I have [...] the patient's medical record. [DOES NOT SATISFY [facility] PERFORMANCE] RAISA Mejia CNP , RAISA, PRODUCTION WOOD CRAFTSMAN-[facility] 08/20/2024, 8:59 AM Cosigned by Lyla Burciaga MD at 08/20/2024 7:07 PM EDT Associated attestation - Lyla Burciaga MD - 08/20/2024 7:07 PM EDT Images from the original note were not included. [address] , [place], [place], [address] Attestation Patient: Amol Taylor Date of Admission: 08/18/2024 5:28 PM Hospital Day # 2 Date of Evaluation: 08/20/2024 I personally evaluated and examined the patient [id number] in conjunction with the PA/PRODUCTION WOOD CRAFTSMAN and agree with the management and dispostition of the patient. Please see the PA/PRODUCTION WOOD CRAFTSMAN's note for full details.My gee findings are: SUBJECTIVE: Patient seen for follow up of SBO (small bowel obstruction) ([facility]). He is doing about the same as prior.minimal NG tube output was observed. He did have thick yellow mucous in the tube. OBJECTIVE: Vitals: Temp: 98.6 F (37 C) BP: (!) 143/79 Respirations: 26 Pulse: 100 SpO2: 97 % Weight Wt Readings from Last 3 Encounters: 08/20/24 99.8 kg (220 lb) 07/16/24 97.1 kg (214 lb) 06/19/24 93.6 kg (206 lb 4.8 oz) Body mass index is 31.57 kg/m . 24HR INTAKE/OUTPUT: Intake/Output Summary (Last 24 hours) at 08/20/2024 1906 Last data filed at 08/20/2024 1241 Gross per 24 hour Intake 2716 ml Output 650 ml Net 2066 ml Exam: GEN: Awake, alert and oriented to person/place. EYES: EOMI, pupils equal NG to LIS NECK: Supple. No lymphadenopathy. No carotid bruit [...] lesions. DATA: Complete Blood Count: Recent Labs 08/18/24182308/19/2452408/20/24455 WBC 14.8* 11.6* 14.4* RBC 4.30 4.10* 3.73* HGB 14.0 13.0 12.2* HCT 43.2 40.3* 36.7* MCV 100.5 98.3 98.4 RDW 12.9 13.0 12.6 PLT 285 263 185 Recent Labs 08/18/24182308/19/2452408/20/24455 NEUTROABS 11.34* 8.62* 11.77* LYMPHOPCT 13* 17* 10* LYMPHSABS 1.93 1.93 1.42 MONOPCT 8 8 7 BASOPCT 0 0 0 IMMGRAN 0 0 0 CMP: Lab Results Component Value Date GLUCOSE 102 (H) 08/20/2024 BUN 14 08/20/2024 CREATININE 0.8 08/20/2024 NA 136 08/20/2024 K 3.9 08/20/2024 CALCIUM 8.3 (L) 08/20/2024 CL 103 08/20/2024 CO2 21 08/20/2024 BILITOT <0.2 08/18/2024 ALKPHOS 201 (H) 08/18/2024 ALT 16 08/18/2024 AST 17 08/18/2024 UA: Lab Results Component Value Date COLORU Yellow 08/18/2024 WBCUA 20 TO 50 07/14/2024 RBCUA 0 TO 2 07/14/2024 LEUKOCYTESUR NEGATIVE 08/18/2024 GLUCOSEU NEGATIVE 08/18/2024 KETUA NEGATIVE 08/18/2024 PROTEINU NEGATIVE 08/18/2024 HGBUR NEGATIVE 08/18/2024 CASTUA 5 TO 10 HYALINE 07/14/2024 BACTERIA 3+ (A) 07/14/2024 YEAST NOT REPORTED 12/05/2018 Lactic Acid: Lab Results Component Value Date/Time LACTA 1.7 07/14/2024 07:36 AM LACTA 0.6 06/12/2023 05:10 AM LACTA 1.3 09/02/2022 07:35 PM High Sensitivity Troponin: Recent Labs 08/18/24 2255 08/19/24 0525 08/20/24 0456 TROPHS 13 12 12 Radiology/Imaging: XR CHEST PORTABLE Final Result No acute cardiopulmonary process. XR ABDOMEN (KUB) (SINGLE AP VIEW) Final Result Overall improvement in small bowel and colonic dilation. Enteric tube is no longer visualized. XR ABDOMEN (KUB) (SINGLE AP VIEW) Final Result Multiple dilated loops of small and large bowel, which may represent ileus or partial small bowel obstruction. XR ABDOMEN FOR NG/OG/NE TUBE PLACEMENT Final Result Endo gastric tube tip projects over the gastric body. CT ABDOMEN PELVIS W IV CONTRAST Additional Contrast? None Final Result 1. History of small-bowel obstruction with prior partial resection and anastomosis in the left lower quadrant. 2. Current pattern of dilation of the stomach, small bowel and transverse colon with no focal transition point. Ileus or enteritis may be considered. A partial small bowel obstruction cannot be excluded given prior history. 3. Stable subcapsular hematoma of the left kidney. XR ABDOMEN (KUB) (SINGLE AP VIEW) (Results Pending) ASSESSMENT: Principal Problem: SBO (small bowel obstruction) ([facility]) Active Problems: MR (mental retardation), severe S/P placement of VNS (vagus nerve stimulation) device Abnormal ECG Resolved Problems: * No resolved hospital problems. * PLAN: I agree with the plan as outlined in the PRODUCTION WOOD CRAFTSMAN/PA's note Disposition: Discharge plan is pending Please note that this chart was generated using voice recognition [employer] dictation software. Although every effort was made to ensure the accuracy of this automated driller and broacher, some errors in driller and broacher may have occurred. Lyla Burciaga MD 08/20/2024 7:06 PM * Anais Addison RN - 08/20/2024 4:28 AM EDT EKG completed at this time. Patient asked to clear his throat and take deep breaths. He told real estate underwriter I'm breathing. Don't bother me. Service Coordinator [facility] asked why he was breathing so fast but he states again, Don't bother me, I'm fine. I don't have to pee. Oxygen is 94% but respirations are 40. Service Coordinator Elderly Facility asked patient to slow his breathing for deep breaths, and while he attempted, he didn't make this happen. Service Coordinator Elderly Facility informed PRODUCTION WOOD CRAFTSMAN of respirations. XRay ordered for morning. Call light and bedside table remain within reach. Care ongoing. * Anais Addison RN - 08/20/2024 1:39 AM EDT Patient used the urinal. NG tube remains 60 at the nares. He remains tachypneic and sounds congested. Service Coordinator [facility] Facility continues to encourage patient to clear his throat and cough intermittently. Patient denies needs. He was repositioned at this time. Call light and bedside table remain within reach. Care ongoing. * Anais Addison RN - 08/19/2024 9:15 PM EDT Vitals and assessment were completed at this time. Service Coordinator Elderly Facility walked patient through the medications that would be administered tonight and encouraged patient to ask questions about the medications and therapies. Patient denies questions. NG was retaped and remains at 60 at the nares. Patient was changed at this time. Call light and bedside table remain within reach. Patient denies needs at this time. Care ongoing. * Renae Benz OT - 08/19/2024 3:14 PM EDT [facility] Date: 08/19/2024 Patient Name: Amol Laurent Kayla [x] Inpatient Acute/Observation [] Outpatient : 1955 [x] Pt refused/declined therapy at this time due to: Patient evaluation attempted, patient refused secondary to automatic driller and reamer present in room and request to sleep. Therapist/Sound Art Instructor will attempt to see this patient, at our earliest opportunity. Renae Benz OTD, OTR/L Date: 08/19/2024 * Yennifer Cuevas PTA - 08/19/2024 2:43 PM EDT [facility] Date: 08/19/2024 Patient Name: Amol Taylor [x] Inpatient Acute/Observation [] Outpatient : 1955 [x] Pt refused/declined therapy at this time due to: Pt. agreable to theapy and once attempting bedexercises pt. became aggitated and stated Leave me alone, I am try to sleep! [] Pt cancelled due to: [] No Reason Given [] Sick/ill [] Other: [] Evaluation held by RN/Provider/Physical Therapist due to: [] High Heart Rate [] High Blood Pressure [] Orthopedic Consult [] Hgb < 7 [] Other: [] Pt ordered brace per physician request: [] Proper fit will be completed and education for wearing/skin checks [] Pt does not require skilled services due to: Therapist/Sound Art Instructor will attempt to see this patient, at our earliest opportunity. Yennifer Cuevas PTA Date: 08/19/2024 Cosigned by Donna Jernigan PT at 08/19/2024 3:17 PM EDT * Elvira Nelson LSW - 08/19/2024 10:59 AM EDT Spoke with Patient's sister and legal Guardian, Susan, regarding Patient's discharge planning this a.m. via telephone conversation. Guardian relates that his plan will be to return to [facility] in [place] when deemed medically stable for discharge. Patient is a 69 year old single, white male, admitted with a diagnosis of SBO. History of Mental Retardation and Epilepsy also noted. Spoke with [facility] nurse Victorina as well and [facility] to provide transportation for Patient when discharged. Patient resides at [facility] in [place]. Uses wheelchair for assistance with mobility. Staffat [facility] provides daily assistance with personal care, medications and transportation needs. No unmet needs or discharge planning concerns identified at this time. PCP is Dr. Dior. Patient has [facility] Medicare and [place] Medicaid and his prescriptions are covered under these plans. Discharge plan is to return to [facility] when stable. Patient remains a Full Code' status and does have medical directives in place. KRYSTIN Torres 08/19/2024 * Donna Jernigan, PT - 08/19/2024 10:54 AM EDT Physical Therapy Facility/Department: [facility] Physical Therapy Initial Assessment Name: Amol Taylor : 1955 Date of Service: 08/19/2024 Discharge Recommendations: Continue to assess pending progress, Shelter Care with PT PT Equipment Recommendations Equipment Needed: No Patient Diagnosis(es): The encounter diagnosis was SBO (small bowel obstruction) (HCC). Past Medical History: has a past medical history of Arthritis, BPH (benign prostatic hyperplasia), Dysphagia, GERD (gastroesophageal reflux disease), Hearing loss, HLD (hyperlipidemia), Insomnia, MR (mental retardation), Periorbital cellulitis, SBO (small bowel obstruction) (HCC), Seizures (HCC), Ve ntral hernia, and Vitamin D deficiency. Past Surgical History: has a past surgical history that includes Abdomen surgery (2012, 2013); laparoscopy (10/19/13); laparotomy (10/19/13); cast application (Left); Hydrocele surgery (10/2015); Vagusnerve stimulator insertion; and Vagus nerve stimulator insertion (12/14/2015). Assessment Body Structures, Functions, Activity Limitations Requiring Skilled Therapeutic Intervention: Decreased functional mobility ;Decreased ADL status;Decreased strength;Decreased balance;Decreased endurance;Decreased cognition;Decreased posture;Decreased high-level IADLs Assessment: The patient is a 69 y.o. male who was admitted due to a SBO. On evaluation he demosntrates LE weakness, decreased sitting and standing balance, and decreased activity endurance. He would benefit from skilled PT to address his deficits to improve functional mobility. Treatment Diagnosis: Generalized weakness, decreased activity endurance Therapy Prognosis: Good Decision Making: Medium Complexity Requires PT Follow-Up: Yes Activity Tolerance Activity Tolerance: Patient tolerated evaluation without incident Plan Physical Therapy Plan General Plan: 2 times a day 7 days a week (1x/day on weekends) Current Treatment Recommendations: Strengthening, ROM, Balance training, Functional mobility training, Transfer training, ADL/Self-care training, IADL training, Manual, Neuromuscular re-education, Gait training, Stair training, Endurance training, Home exercise program, Safety education & training, Patient/Caregiver education & training, Therapeutic activities, Positioning Safety Devices Type of Devices: All fall risk precautions in place Restraints Restraints Initially in Place: No Restrictions Restrictions/Precautions Restrictions/Precautions: Fall Risk, NPO, General Precautions Activity Level: Up with Assist Required Braces or Orthoses?: No Subjective General Chart Reviewed: Yes Patient assessed for rehabilitation services?: Yes Family/Caregiver Present: No Referring Practitioner: Lyla Burciaga MD Referral Date : 08/18/24 Diagnosis: SBO, K56.609 Follows Commands: Within Functional Limits Subjective Subjective: Patient denies pain at this time. Social/Functional History Social/Functional History Additional Comments: The patient lives in a [facility]. He reports he does not use an AD to ambulate. He does need help with bathing and dressing per patient. Vision/Hearing Vision Vision: Within Functional Limits Hearing Hearing: Within functional limits Cognition Orientation Orientation Level: Disoriented to place;Oriented to situation;Oriented to place Cognition Overall Cognitive Status: Exceptions Arousal/Alertness: Appears intact Following Commands: Follows multistep commands with increased time Attention Span: Impaired Memory: Impaired Safety Judgement: Impaired Problem Solving: Able to problem solve independently Insights: Impaired Initiation: Appears intact Sequencing: Appears intact Objective Temp: 98.7 F (37.1 C) Pulse: 85 Heart Rate Source: Monitor Respirations: 22 SpO2: 97 % O2 Device: None (Room air) BP: 128/70 MAP (Calculated): 89 BP Location: Right upper arm BP Method: Automatic Patient Position: Semi fowlers Observation/Palpation Posture: Poor Observation: NG tube AROM RLE (degrees) RLE AROM: WFL AROM LLE (degrees) LLE AROM : WFL Strength RLE Comment: Grossly 3+/5 Strength LLE Comment: Grossly 3+/5 Bed mobility Supine to Sit: Partial/Moderate assistance Scooting: Minimal assistance Transfers Sit to Stand: Minimal Assistance Stand to Sit: Minimal Assistance Ambulation WB Status: FWB Ambulation Surface: Level tile Device: No Device Other Apparatus: (NG) Assistance: Minimal assistance Quality of Gait: Patient able to take 2 steps to bedside chair with Min A due to posterior DOMINIQUE. Distance: 2' Balance Posture: Poor Sitting - Static: Fair Sitting - Dynamic: Fair;- Standing - Static: Poor;+ Standing - Dynamic: Poor;+ AM-PAC - Mobility AM-PAC Mobility without Stair Climbing Inpatient How much difficulty turning over in bed?: A Little How much difficulty sitting down on / standing up from a chair with arms?: A Little How much difficulty moving from lying on back to sitting on side of bed?: A Lot How much help from another person moving to and from a bed to a chair?: A Little How much help from another person needed to walk in hospital room?: A Lot AM-PAC Inpatient Mobility without Stair Climbing Raw Score : 13 AM-PAC Inpatient without Stair Climbing T-Scale Score : 38.96 Mobility Inpatient CMS 0-100% Score: 58.44 Mobility Inpatient without Stair CMS G-Code Modifier : CK Goals Short Term Goals Time Frame for Short Term Goals: 10 days Short Term Goal 1: Patient will ambulate 25' with CGA, LRAD, without LOB Short Term Goal 2: Patient will perform transfers and bed mobility tasks with VT Short Term Goal 3: Patient will tolerate 20-30 minutes of therex/act to improve endurance for ADLs. Patient Goals Patient Goals : No stated goals Education Patient Education Education Given To: Patient Education Provided: Role of Therapy;Plan of Care Education Method: Verbal Barriers to Learning: Cognition Education Outcome: Verbalized understanding Therapy Time Individual Concurrent Group Co-treatment Time In 1025 Time Out 1045 Minutes 20 Timed Code Treatment Minutes: 20 Minutes Donna Jernigan, PT , DPT, OCS, Cert. DN Cosigned by Lyla Burciaga MD at 08/19/2024 6:07 PM EDT * Janette Carey GN - 08/19/2024 9:38 AM EDT Patient is A&Ox 4. Vital signs and head to toe assessment completed, see flowsheet for specificdetails. Patient denies any pain at this time. Patient denies any further needs at this time and care is ongoing. Standard safety precautions in place. * Dorota Woodson APRN - CNP - 08/19/2024 7:00 AM EDT Progress Note SUBJECTIVE: Patient seen for f/u of SBO (small bowel obstruction) ([facility]). He resting in bed no distress. NG to LIWS. Minimal output. Stated he did not sleep much last night. Feels better ROS: Constitutional: negative for fevers, and negative [...] otherwise stated in HPI OBJECTIVE: Vitals: Vitals: 08/18/24 2157 BP: 137/79 Pulse: 95 Resp: 20 Temp: 98.1 F (36.7 C) SpO2: 96% Weight - Scale: 100.1 kg (220 lb 9.6 oz) Height: 177.8 cm (5' 10 ) Weight Wt Readings from Last 3 Encounters: 08/19/24 100.1 kg (220 lb 9.6 oz) 07/16/24 97.1 kg (214 lb) 06/19/24 93.6 kg (206 lb 4.8 oz) Body mass index is 31.65 kg/m . 24HR INTAKE/OUTPUT: Intake/Output Summary (Last 24 hours) at 08/19/2024 0700 Last data filed at 08/19/2024 0532 Gross per 24 hour Intake 464.91 ml Output 1375 ml Net -910.09 ml Exam: GEN: Awake, alert and pleasant. EYES: EOMI, pupils equal NECK: Supple. No [...] Diagnostic Data: Complete Blood Count: Recent Labs 08/18/24182308/19/24 0525 WBC 14.8* 11.6* RBC 4.30 4.10* HGB 14.0 13.0 HCT 43.2 40.3* MCV 100.5 98.3 MCH 32.6 31.7 MCHC 32.4 32.3 RDW 12.9 13.0 PLT 285 263 MPV 8.8 8.9 Last 3 Blood Glucose: Recent Labs 08/18/244 08/19/24 0525 GLUCOSE 90 95 Comprehensive Metabolic Profile: Recent Labs 08/18/24182308/19/24 0525 NA 140 137 K 3.9 4.2 CL 106 107 CO2 22 18* BUN 23 20 CREATININE 1.1 0.9 GLUCOSE 90 95 CALCIUM 9.5 8.6 BILITOT <0.2 -- ALKPHOS 201* -- AST 17 -- ALT 16 -- Urinalysis: Lab Results Component Value Date/Time NITRU NEGATIVE 08/18/2024 06:30 PM COLORU Yellow 08/18/2024 06:30 PM PHUR 6.0 08/18/2024 06:30 PM PHUR 6.0 06/11/2023 03:28 PM WBCUA 20 TO 50 07/14/2024 09:00 AM RBCUA 0 TO 2 07/14/2024 09:00 AM MUCUS 1+ 07/14/2024 09:00 AM TRICHOMONAS NOT REPORTED 12/05/2018 06:15 AM YEAST NOT REPORTED 12/05/2018 06:15 AM BACTERIA 3+ 07/14/2024 09:00 AM LEUKOCYTESUR NEGATIVE 08/18/2024 06:30 PM UROBILINOGEN Normal 08/18/2024 06:30 PM BILIRUBINUR NEGATIVE 08/18/2024 06:30 PM GLUCOSEU NEGATIVE 08/18/2024 06:30 PM GLUCOSEU NEGATIVE 10/31/2010 12:33 PM KETUA NEGATIVE 08/18/2024 06:30 PM AMORPHOUS 2+ 06/12/2022 11:10 AM HgBA1c: No results found for: LABA1C Lactic Acid: Lab Results Component Value Date/Time LACTA 1.7 07/14/2024 07:36 AM LACTA 0.6 06/12/2023 05:10 AM LACTA 1.3 09/02/2022 07:35 PM Troponin: No results for input(s): TROPONINI in the last 72 hours. CRP: No results for input(s): CRP in the last 72 hours. Radiology/Imaging: XR ABDOMEN FOR NG/OG/NE TUBE PLACEMENT Final Result Endo gastric tube tip projects over the gastric body. CT ABDOMEN PELVIS W IV CONTRAST Additional Contrast? None Final Result 1. History of small-bowel obstruction with prior partial resection and anastomosis in the left lower quadrant. 2. Current pattern of dilation of the stomach, small bowel and transverse colon with no focal transition point. Ileus or enteritis may be considered. A partial small bowel obstruction cannot be excluded given prior history. 3. Stable subcapsular hematoma of the left kidney. XR ABDOMEN (KUB) (SINGLE AP VIEW) (Results Pending) XR ABDOMEN (KUB) (SINGLE AP VIEW) (Results Pending) ASSESSMENT / PLAN: MEDICAL DECISION MAKING: Primary Problem(s): SBO (small bowel obstruction) (HCC) Differential diagnoses: Ileus Condition is an undiagnosed new problem with uncertain prognosis Condition is stable Treatment plan: Appreciate Gen Surgery N.p.o. NG to LIWS following x-ray for placement Up to chair Imaging: Abdominal x-ray daily Medications: IV fluids Pepcid Medication Monitoring / High Risk Medications: none EKG changes Condition is stable Treatment plan: Telemetry monitoring Trend EKGs and troponin Cardiology consult Imaging: no further imaging studies ordered today Medications: Lovenox Nutrition status: at risk for malnutrition Dermatology Nurse Practitioner consult initiated I/O Daily weight Monitor Daily intake Nutritional Supplements as tolerated MALNUTRITION ASSESSMENT AND PLAN The following was documented by the Dietitian: I agree with the dietitian's malnutrition assessment. Medical Nutrition Therapy: npo Hospital Prophylaxis: DVT: Lovenox Stress Ulcer: H2 Klarissa Disposition: Shared decision making: All test results, treatment options and disposition options were discussed with the patient today Social determinants of health that may impact management: resides in [facility] Code status: Full Code Disposition: Discharge plan is pending [facility] Advanced Care Planning documentation: [x] I have [...] the patient's medical record. [DOES NOT SATISFY [facility] PERFORMANCE] RAISA Mejia CNP , RAISA, PRODUCTION WOOD CRAFTSMAN-C Hospitalist Medicine 08/19/2024, 7:00 AM Cosigned by Lyla Burciaga MD at 08/19/2024 6:02 PM EDT Associated attestation - Lyla Burciaga MD - 08/19/2024 6:02 PM EDT Images from the original note were not included. [address] [place], [place], [address] Attestation Patient: Amol Taylor Date of Admission: 08/18/2024 5:28 PM Hospital Day # 1 Date of Evaluation: 08/19/2024 I personally evaluated and examined the patient [id number] in conjunction with the PA/PRODUCTION WOOD CRAFTSMAN and agree with the management and dispostition of the patient. Please see the PA/PRODUCTION WOOD CRAFTSMAN's note for full details.My gee findings are: SUBJECTIVE: Patient seen for follow up of SBO (small bowel obstruction) ([facility]). Patient seen and examined at thebed side , no new acute events overnight and no new complains noted. He states he feels 'fine'/. Hedenies any n/v/d Notes from nursing staff and Consults had been reviewed, and the overnight progress had been checked with the nursing staff as well. OBJECTIVE: Vitals: Temp: 97.6 F (36.4 C) BP: (!) 141/81 Respirations: 22 Pulse: 84 SpO2: 97 % Weight Wt Readings from Last 3 Encounters: 08/19/24 100.1 kg (220 lb 9.6 oz) 07/16/24 97.1 kg (214 lb) 06/19/24 93.6 kg (206 lb 4.8 oz) Body mass index is 31.65 kg/m . 24HR INTAKE/OUTPUT: Intake/Output Summary (Last 24 hours) at 08/19/2024 1802 Last data filed at 08/19/2024 1546 Gross per 24 hour Intake 1148.74 ml Output 1375 ml Net -226.26 ml Exam: GEN: Awake, alert and oriented x3. EYES: EOMI, pupils equal NG to LIS NECK: Supple. No lymphadenopathy. No carotid bruit [...] lesions. DATA: Complete Blood Count: Recent Labs 08/18/24182308/19/24 0525 WBC 14.8* 11.6* RBC 4.30 4.10* HGB 14.0 13.0 HCT 43.2 40.3* MCV 100.5 98.3 RDW 12.9 13.0 PLT 285 263 Recent Labs 08/18/24182308/19/24 0525 NEUTROABS 11.34* 8.62* LYMPHOPCT 13* 17* LYMPHSABS 1.93 1.93 MONOPCT 8 8 BASOPCT 0 0 IMMGRAN 0 0 CMP: Lab Results Component Value Date GLUCOSE 95 08/19/2024 BUN 20 08/19/2024 CREATININE 0.9 08/19/2024 NA 137 08/19/2024 K 4.2 08/19/2024 CALCIUM 8.6 08/19/2024 CL 107 08/19/2024 CO2 18 (L) 08/19/2024 BILITOT <0.2 08/18/2024 ALKPHOS 201 (H) 08/18/2024 ALT 16 08/18/2024 AST 17 08/18/2024 UA: Lab Results Component Value Date COLORU Yellow 08/18/2024 WBCUA 20 TO 50 07/14/2024 RBCUA 0 TO 2 07/14/2024 LEUKOCYTESUR NEGATIVE 08/18/2024 GLUCOSEU NEGATIVE 08/18/2024 KETUA NEGATIVE 08/18/2024 PROTEINU NEGATIVE 08/18/2024 HGBUR NEGATIVE 08/18/2024 CASTUA 5 TO 10 HYALINE 07/14/2024 BACTERIA 3+ (A) 07/14/2024 YEAST NOT REPORTED 12/05/2018 Lactic Acid: Lab Results Component Value Date/Time LACTA 1.7 07/14/2024 07:36 AM LACTA 0.6 06/12/2023 05:10 AM LACTA 1.3 09/02/2022 07:35 PM High Sensitivity Troponin: Recent Labs 08/18/24 2255 08/19/24 0525 TROPHS 13 12 Radiology/Imaging: XR ABDOMEN (KUB) (SINGLE AP VIEW) Final Result Multiple dilated loops of small and large bowel, which may represent ileus or partial small bowel obstruction. XR ABDOMEN FOR NG/OG/NE TUBE PLACEMENT Final Result Endo gastric tube tip projects over the gastric body. CT ABDOMEN PELVIS W IV CONTRAST Additional Contrast? None Final Result 1. History of small-bowel obstruction with prior partial resection and anastomosis in the left lower quadrant. 2. Current pattern of dilation of the stomach, small bowel and transverse colon with no focal transition point. Ileus or enteritis may be considered. A partial small bowel obstruction cannot be excluded given prior history. 3. Stable subcapsular hematoma of the left kidney. XR ABDOMEN (KUB) (SINGLE AP VIEW) (Results Pending) ASSESSMENT: Principal Problem: SBO (small bowel obstruction) (HCC) Active Problems: MR (mental retardation), severe S/P placement of VNS (vagus nerve stimulation) device Abnormal ECG Resolved Problems: * No resolved hospital problems. * PLAN: I agree with the plan as outlined in the PRODUCTION WOOD CRAFTSMAN/PA's note Disposition: Discharge plan is pending Please note that this chart was generated using voice recognition [employer] dictation software. Although every effort was made to ensure the accuracy of this automated driller and broacher, some errors in driller and broacher may have occurred. Lyla Burciaga MD 08/19/2024 6:02 PM * Rinku Montalvo RD, LD - 08/19/2024 6:57 AM EDT Comprehensive Nutrition Assessment Type and Reason for Visit: Initial Nutrition Recommendations/Plan: Monitor NPO duration Malnutrition Assessment: Malnutrition Status: At risk for malnutrition (08/19/24 0712) Context: Acute Illness Findings of the 6 clinical characteristics of malnutrition: Energy Intake: Mild decrease in energy intake (at least acutely) Weight Loss: No weight loss Body Fat Loss: No body fat loss Muscle Mass Loss: No muscle mass loss Fluid Accumulation: Mild Zoning Engineer Strength: Not Performed Nutrition Assessment: Inadequate nutrient intakes r/t altered GI status, AEB NPO for recurrent SBO. Known MRDD with weight gain trends noted. Resides at an [facility] without MAR or other information available to review. Patientasleep with NGT in (and 1100 ml out overnight). Pending surgical consult. Will monitor duration of NPO status and POC. 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 Nutrition Related Findings: hypoactive b/s. +2 RUE and +1 BLE edema. Wound Type: None Current Nutrition Intake & Therapies: Average Meal Intake: NPO Average Supplements Intake: NPO Diet NPO Anthropometric Measures: Height: 177.8 cm (5' 10 ) [place] Body Weight (IBW): 166 lbs (75 kg) Admission Body Weight: 100 kg (220 lb 7.4 oz) Current Body Weight: 100.1 kg (220 lb 9.6 oz), 132.9 % IBW. Weight Source: Bed scale Current BMI (kg/m2): 31.7 Usual Body Weight: 97.1 kg (214 lb) (last month with weight trend upward overall) % Weight Change (Calculated): 3.1 Weight Adjustment For: No Adjustment BMI Categories: Obese Class 1 (BMI 30.0-34.9) Estimated Daily Nutrient Needs: Energy Requirements Based On: Kcal/kg Weight Used for Energy Requirements: Current Energy (kcal/day): 5997-8456 (17-21) Weight Used for Protein Requirements: [place] Protein (g/day): 83-98 (1.1-1.3) Method Used for Fluid Requirements: 1 ml/kcal Fluid (ml/day): 2100 Nutrition Diagnosis: Inadequate protein-energy intake related to altered GI function as evidenced by NPO or clear liquidstatus due to medical condition, vomiting Lab Results Component Value Date NA 137 08/19/2024 K 4.2 08/19/2024 CL 107 08/19/2024 CO2 18 (L) 08/19/2024 BUN 20 08/19/2024 CREATININE 0.9 08/19/2024 GLUCOSE 95 08/19/2024 CALCIUM 8.6 08/19/2024 BILITOT <0.2 08/18/2024 ALKPHOS 201 (H) 08/18/2024 AST 17 08/18/2024 ALT 16 08/18/2024 LABGLOM >90 08/19/2024 GFRAA >60 09/10/2021 GLOB NOT REPORTED 04/13/2021 No results found for: LABA1C Lab Results Component Value Date VITD25 28.6 (L) 10/31/2018 No results found for: LABA1C Nutrition Interventions: Food and/or Nutrient Delivery: Continue NPO Nutrition Education/Counseling: No recommendation at this time Coordination of Nutrition Care: Continue to monitor while inpatient Plan of Care discussed with: nursing Goals: Goals: Meet at least 75% of estimated needs Type of Goal: New goal Previous Goal Met: New Goal Nutrition Monitoring and Evaluation: Behavioral-Environmental Outcomes: Other (MRDD) Food/Nutrient Intake Outcomes: Diet Advancement/Tolerance, Progression of Nutrition Physical Signs/Symptoms Outcomes: Biochemical Data, Fluid Status or Edema, Weight, Nausea or Vomiting, GI Status Discharge Planning: Continue current diet Rinku Montalvo RD, NNEKA Contact: [phone] * Daiana Duarte RN - 08/19/2024 5:36 AM EDT Cardiology consult completed at this time. Cardiology consult called and faxed. * Daiana Duarte RN - 08/19/2024 5:28 AM EDT Ordered EKG completed and reviewed by Yennifer FREDERICK. Phlebotomy was able to obtain morning labwork. Service Coordinator [facility] was at bedside. Patient denies needing to urinate at this time. Brief clean and dry. NG still suctioning per normal. NG remains at 60cm in R nare. 1100ml brown yellow drainage. Service Coordinator [facility] completely changed out wall suction canister to a new canister at this time. Drainage amount recorded (see flowsheets). * Daiana Duarte RN - 08/19/2024 2:58 AM EDT NG reassessed. Suction continues to be at low intermittent. Wall suction working as should. Drainage continues to be suctioned in line and to canister. NG remains at 60cm in R nare. * Daiana Duarte RN - 08/18/2024 11:31 PM EDT Chest xray confirmation confirmed NG in correct placement. NG hooked up to wall suction, low intermittent, per ordered. Light brown yellowish suction contents noted in line and suction canister. NG suction working as should at this time. * Daiana Duarte RN - 08/18/2024 11:19 PM EDT Bashir Served [facility] team for PICC line insertion at this time. Due to nonurgent need; A vatstaff member will call tomorrow (no earlier than 0900) morning to evaluate need and potential ETA. * Daiana Duarte RN - 08/18/2024 11:[address] Quigley spoke with ER physician regarding patient's care and possible admission. Bashir served Dr. Quigley at this time letting him know patient was admitted into room 301, has NG hooked up to low intermittent suctions and does not have any current nausea or vomiting. * Daiana Duarte RN - 08/18/2024 11:00 PM EDT Called and spoke with Meera in lab. Stated to attempt to run troponin on Ped Vial that was sent down, if unable to run on ped vial, run troponin on green vial that was obtained in ER. * Daiana Duarte RN - 08/18/2024 10:55 PM EDT 22G IV placed into top of L foot at this time. Small amount of blood return noted. Bloodwork obtained and put into Ped tube for labwork to run troponin for rhythm changes on EKG. IV flushes well. * Daiana Duarte RN - 08/18/2024 10:25 PM EDT Service Coordinator [facility] went to assess and flush patient's IV for the first time. LUE noted to be very taut and hard. IV was infiltrated. Arm +2 to +3 nonpitting edema to left arm. No fluids were infused by real estate underwriter since arriving to floor. IV removed at this time. LUE placed onto pillow and warm blanket placed over extremity to promote decrease of swelling caused by infiltration. * Daiana Duarte RN - 08/18/2024 9:56 PM EDT [facility], at this time via cart. Patient was transferred/pulled over to the hospital bed via x4 nurses. Patient is alert and orientated to self only. Patient is MRDD and a resident at [facility]. Paperwork was sent over from [facility] of which real estate underwriter will use when completing patient's paperwork. Patient is on room air, and has NG in place in R nare, 18fr, and at 60cm. Chest xray was obtained in ER for confirmation, awaiting results at this time so patient's NG remains clamped. documented in this encounterBon [facility] Discharge instructions* Discharge Instr - JOYCE* Ann Tovar LSW - 08/21/2024 9:30 AM EDT Continuity of Care Form Patient Name: Amol Taylor : 1955 Admit date: 08/18/2024 Discharge date: 08/21/2024 Code Status Order: Full Code Advance Directives: Admitting Physician: Lyla Burciaga MD PCP: Carson Dior MD Discharging Nurse: JUDE Discharging Hospital Unit/Room#: 0301/0301-01 Discharging Unit Emergency Contact: Extended Emergency Contact Information Primary Emergency Contact: Susan Smith [address]: [address] [place] [address] Relation: Legal Guardian Secondary Emergency Contact: Eliazar [...] Problems: Patient Active Problem List Diagnosis Code MR (mental retardation), severe F72 SBO (small bowel obstruction) ([facility]) K56.609 AFTAB (obstructive sleep apnea) G47.33 Intellectual disability F79 S/P placement of VNS (vagus nerve stimulation) device Z96.89 Dysphagia R13.10 Seizure disorder ([facility]) G40.909 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 Small bowel obstruction ([facility]) K56.609 Abnormal ECG R94.31 Sinus tachycardia R00.0 Complicated UTI (urinary tract infection) N39.0 Ileitis K52.9 Isolation/Infection: Isolation No Isolation Patient Infection Status None to display Nurse Assessment: Last Vital Signs: BP 130/77 Pulse 77 Temp 98.2 F (36.8 C) (Temporal) Resp 28 Ht 1.778 m (5'10 ) Wt 95.8 kg (211 lb 3.2 oz) SpO2 97% BMI 30.30 kg/m Last documented pain score (0-10 scale): Last Weight: Wt Readings from Last 1 Encounters: 08/21/24 95.8 kg (211 lb 3.2 oz) Mental Status: alert and sometimes hard to understand when he answers orientation questions IV Access: - None Nursing Mobility/ADLs: Walking Assisted Transfer Assisted Bathing Assisted Dressing Assisted Toileting Assisted Feeding Independent Press Loader Assisted Med Delivery unknown, did not give PO meds Wound Care Documentation and Therapy: Elimination: Continence: Bowel: Yes Bladder: No Urinary Catheter: None Colostomy/Ileostomy/Ileal Conduit: No Date of Last BM: 08/21/2024 Intake/Output Summary (Last 24 hours) at 08/21/2024 0948 Last data filed at 08/21/2024 0855 Gross per 24 hour Intake 2509 ml Output 400 ml Net 2109 ml I/O last 3 completed shifts: In: 4132 [P.O.:360; I.V.:3772] Out: 1050 [Urine:950; Emesis/NG output:100] Safety Concerns: History of Falls (last 30 days), At Risk for Falls, and MRDD Impairments/Disabilities: Speech and MRDD Nutrition Therapy: Current Nutrition Therapy: - Oral Diet: General Routes of Feeding: Oral Liquids: No Restrictions Daily Fluid Restriction: no Last Modified Barium Swallow with Video (Video Swallowing Test): not done Treatments at the Time of Hospital Discharge: Respiratory Treatments: N/A Oxygen Therapy: is not on home oxygen therapy. Ventilator: - No ventilator support Rehab Therapies: N/A Weight Bearing Status/Restrictions: No weight bearing restrictions Other Medical Equipment (for information only, NOT a DME order): walker Other Treatments: N/A Patient's personal belongings (please select all that are sent with patient): None RN SIGNATURE: CASE MANAGEMENT/SOCIAL WORK SECTION Inpatient Status Date: 08/18/24 Readmission Risk Assessment Score: [facility] RISK OF UNPLANNED READMISSION 2.0 25.6 Total Score Discharging to Facility/ Agency Name: [facility] Address:[address] [place] [id number] Fax: Dialysis Facility (if applicable) Name: Address: Dialysis Schedule: Phone: Fax: Environmental Technical Officer/Staff Certified Nurse Midwife signature: PHYSICIAN SECTION Prognosis: Fair Condition at Discharge: Stable Rehab Potential (if transferring to Rehab): Fair Recommended Labs or Other Treatments After Discharge: na Physician Certification: I certify the above information and transfer of Amol Taylor is necessaryfor the continuing treatment of the diagnosis listed and that he requires [facility] for greater 30days. Update Admission H&P: No change in H&P PHYSICIAN SIGNATURE: documented in this encounterBon [facility] History of Present illness Narrative* Carson Dior MD - 08/06/2024 11:31 AM EDTAssociated Problem(s): E. coli UTI (urinary tract infection) Recent UTI and treated. Monitor. * Carson Dior MD - 08/06/2024 11:31 AM EDTAssociated Problem(s): Seizure disorder (CMS/HCC) At baseline and continue medication. * Carson Dior MD - 08/06/2024 11:00 AM EDT Images from the original note were not included. Subjective Patient ID: Amol Taylor is a 69 y.o. male who presents for Follow-up (Hospital f/up uti). Hospital follow up from 07/14-07/16 for UTI. Developed prolonged seizures along with vomiting and diarrhea. History of recurrent SBO and CT with scattered air fluid levels. UA with UTI and admitted. Surgery consulted and felt no SBO. Advanced diet and tolerated. Culture grew E. Coli. Discharged home with cipro and flagyl. Doing well today and back to baseline. Normal PO and normal BM. No complaintsof pain. Review of Systems Constitutional: Negative for fatigue. Respiratory: Negative for cough, shortness of breath and wheezing. Cardiovascular: Negative for chest pain and palpitations. Gastrointestinal: Negative for abdominal pain, diarrhea, nausea and vomiting. Genitourinary: Negative for dysuria. Objective Physical Exam Constitutional: General: He is not in acute distress. Appearance: Normal appearance. HENT: Head: Normocephalic. Right Ear: Tympanic membrane and ear canal normal. Left Ear: Tympanic membrane and ear canal normal. Eyes: Extraocular Movements: Extraocular movements intact. Pupils: Pupils are equal, round, and reactive to light. Cardiovascular: Rate and Rhythm: Normal rate and regular rhythm. Heart sounds: No murmur heard. No friction rub. No gallop. Pulmonary: Breath sounds: Normal breath sounds. No wheezing, rhonchi or rales. Abdominal: General: Bowel sounds are normal. There is no distension. Palpations: Abdomen is soft. Tenderness: There is no abdominal tenderness. There is no guarding or rebound. Musculoskeletal: Left lower leg: No edema. Neurological: Mental Status: He is alert. Assessment/Plan Problem List Items Addressed This Visit Seizure disorder (CMS/HCC) At baseline and continue medication. E. coli UTI (urinary tract infection) - Primary Recent UTI and treated. Monitor. documented in [facility] [id number] Hospital Discharge instructions Patient Education 07/21/2024 14:47:26 Benign Prostatic Hyperplasia Benign Prostatic Hyperplasia Benign prostatic hyperplasia (BPH) is an enlarged prostate gland that is caused by the normal agingprocess. The prostate may get bigger as a man gets older. The condition is not caused by cancer. The prostate is a walnut-sized gland that is involved in the production of semen. It is located in front of the rectum and below the bladder. The bladder stores urine. The urethra carries stored urine ou t of the body. An enlarged prostate can press on the urethra. This can make it harder to pass urine. The buildup of urine in the bladder can cause infection. Back pressure and infection may progress to bladder damage and kidney (renal) failure. What are the causes? This condition is part of the normal aging process. However, not all men develop problems from thiscondition. If the prostate enlarges away from the urethra, urine flow will not be blocked. If it enlarges toward the urethra and compresses it, there will be problems passing urine. What increases the risk? This condition is more likely to develop in men older than 50 years. What are the signs or symptoms? Symptoms of this condition include: Getting up often during the night to urinate. Needing to urinate frequently during the day. Difficulty starting urine flow. Decrease in size and strength of your urine stream. Leaking (dribbling) after urinating. Inability to pass urine. This needs immediate treatment. Inability to completely empty your bladder. Pain when you pass urine. This is more common if there is also an infection. Urinary tract infection (UTI). How is this diagnosed? This condition is diagnosed based on your medical history, a physical exam, and your symptoms. Tests will also be done, such as: A post-void bladder scan. This measures any amount of urine that may remain in your bladder after you finish urinating. A digital rectal exam. In a rectal exam, your health care provider checks your prostate by putting a lubricated, gloved finger into your rectum to feel the back of your prostate gland. This exam detects the size of your gland and any abnormal lumps or growths. An exam of your urine (urinalysis). A prostate specific antigen (PSA) screening. This is a blood test used to screen for prostate cancer. An ultrasound. This test uses sound waves to electronically produce a picture of your prostate gland. Your health care provider may refer you to a specialist in kidney and prostate diseases (urologist). How is this treated? Once symptoms begin, your health care provider will monitor your condition (active surveillance or watchful waiting). Treatment for this condition will depend on the severity of your condition. Treatment may include: Observation and yearly exams. This may be the only treatment needed if your condition and symptoms are mild. Medicines to relieve your symptoms, including: ?Medicines to shrink the prostate. ?Medicines to relax the muscle of the prostate. Surgery in severe cases. Surgery may include: ?Prostatectomy. In this procedure, the prostate tissue is removed completely through an open incision or with a laparoscope or robotics. ?Transurethral resection of the prostate (TURP). In this procedure, a tool is inserted through the opening at the tip of the penis (urethra). It is used to cut away tissue of the inner core of the prostate. The pieces are removed through the same opening of the penis. This removes the blockage. ?Transurethral incision (TUIP). In this procedure, small cuts are made in the prostate. This lessens the prostate's pressure on the urethra. ?Transurethral microwave thermotherapy (TUMT). This procedure uses microwaves to create heat. The heat destroys and removes a small amount of prostate tissue. ?Transurethral needle ablation (TUNA). This procedure uses radio frequencies to destroy and remove a small amount of prostate tissue. ?Interstitial laser coagulation (ILC). This procedure uses a laser to destroy and remove a small amount of prostate tissue. ?Transurethral electrovaporization (TUVP). This procedure uses electrodes to destroy and remove a small amount of prostate tissue. ?Prostatic urethral lift. This procedure inserts an implant to push the lobes of the prostate away from the urethra. Follow these instructions at home: Take [id number]-oooaxpe and prescription medicines only as told by your health care provider. Monitor your symptoms for any changes. Contact your health care provider with any changes. Avoid drinking large amounts of liquid before going to bed or out in public. Avoid or reduce how much caffeine or alcohol you drink. Give yourself time when you urinate. Keep all follow-up visits. This is important. Contact a health care provider if: You have unexplained back pain. Your symptoms do not get better with treatment. You develop side effects from the medicine you are taking. Your urine becomes very dark or has a bad smell. Your lower abdomen becomes distended and you have trouble passing urine. Get help right away if: You have a fever or chills. You suddenly cannot urinate. You feel light-headed or very dizzy, or you faint. There are large amounts of blood or clots in your urine. Your urinary problems become hard to manage. You develop moderate to severe low back or flank pain. The flank is the side of your body between the ribs and the hip. These symptoms may be an emergency. Get help right away. Call 911. Do not wait to see if the symptoms will go away. Do not drive yourself to the hospital. Summary Benign prostatic hyperplasia (BPH) is an enlarged prostate that is caused by the normal aging process. It is not caused by cancer. An enlarged prostate can press on the urethra. This can make it hard to pass urine. This condition is more likely to develop in men older than 50 years. Get help right away if you suddenly cannot urinate. This information is not intended to replace advice given to you by your health care provider. Make sure you discuss any questions you have with your health care provider. Document Revised: 09/07/2021 Document Reviewed: 09/07/2021 [employer] Patient Education 2023 [employer]. Follow Up Care 07/15/2024 14:36:58 With:GENTRY CONSTANTINO, ELSIE Hearn, URL Address: [address] [place] [address]. [place] [address] When:Within 1 Year(s) [facility] 05-19-2025 NotePatient Education Urology Benign Prostatic Hyperplasia Benign prostatic hyperplasia (BPH) is an enlarged prostate gland that is caused by the normal agingprocess. The prostate may get bigger as a man gets older. The condition is not caused by cancer. The prostate is a walnut-sized gland that is involved in the production of semen. It is located in front of the rectum and below the bladder. The bladder stores urine. The urethra carries stored urine ou t of the body. An enlarged prostate can press on the urethra. This can make it harder to pass urine. The buildup of urine in the bladder can cause infection. Back pressure and infection may progress to bladder damage and kidney (renal) failure. What are the causes? This condition is part of the normal aging process. However, not all men develop problems from thiscondition. If the prostate enlarges away from the urethra, urine flow will not be blocked. If it enlarges toward the urethra and compresses it, there will be problems passing urine. What increases the risk? This condition is more likely to develop in men older than 50 years. What are the signs or symptoms? Symptoms of this condition include: ??? Getting up often during the night to urinate. ??? Needing to urinate frequently during the day. ??? Difficulty starting urine flow. ??? Decrease in size and strength of your urine stream. ??? Leaking (dribbling) after urinating. ??? Inability to pass urine. This needs immediate treatment. ??? Inability to completely empty your bladder. ??? Pain when you pass urine. This is more common if there is also an infection. ??? Urinary tract infection (UTI). How is this diagnosed? This condition is diagnosed based on your medical history, a physical exam, and your symptoms. Tests will also be done, such as: ??? A post-void bladder scan. This measures any amount of urine that may remain in your bladder after you finish urinating. ??? A digital rectal exam. In a rectal exam, your health care provider checks your prostate by putting a lubricated, gloved finger into your rectum to feel the back of your prostate gland. This exam detects the size of your gland and any abnormal lumps or growths. ??? An exam of your urine (urinalysis). ??? A prostate specific antigen (PSA) screening. This is a blood test used to screen for prostate cancer. ??? An ultrasound. This test uses sound waves to electronically produce a picture of your prostate gland. Your health care provider may refer you to a specialist in kidney and prostate diseases (urologist). How is this treated? Once symptoms begin, your health care provider will monitor your condition (active surveillance or watchful waiting). Treatment for this condition will depend on the severity of your condition. Treatment may include: ??? Observation and yearly exams. This may be the only treatment needed if your condition and symptoms are mild. ??? Medicines to relieve your symptoms, including: ? Medicines to shrink the prostate. ? Medicines to relax the muscle of the prostate. ??? Surgery in severe cases. Surgery may include: ? Prostatectomy. In this procedure, the prostate tissue is removed completely through an open incision or with a laparoscope or robotics. ? Transurethral resection of the prostate (TURP). In this procedure, a tool is inserted through theopening at the tip of the penis (urethra). It is used to cut away tissue of the inner core of the prostate. The pieces are removed through the same opening of the penis. This removes the blockage. ? Transurethral incision (TUIP). In this procedure, small cuts are made in the prostate. This lessens the prostate's pressure on the urethra. ? Transurethral microwave thermotherapy (TUMT). This procedure uses microwaves to create heat. The heat destroys and removes a small amount of prostate tissue. ? Transurethral needle ablation (TUNA). This procedure uses radio frequencies to destroy and removea small amount of prostate tissue. ? Interstitial laser coagulation (ILC). This procedure uses a laser to destroy and remove a small amount of prostate tissue. ? Transurethral electrovaporization (TUVP). This procedure uses electrodes to destroy and remove a small amount of prostate tissue. ? Prostatic urethral lift. This procedure inserts an implant to push the lobes of the prostate awayfrom the urethra. Follow these instructions at home: ??? Take wihi-zpm-vappikz and prescription medicines only as told by your health care provider. ??? Monitor your symptoms for any changes. Contact your health care provider with any changes. ??? Avoid drinking large amounts of liquid before going to bed or out in public. ??? Avoid or reduce how much caffeine or alcohol you drink. ??? Give yourself time when you urinate. ??? Keep all follow-up visits. This is important. Contact a health care provider if: ??? You have unexplained back pain. ??? Your symptoms do not get (more content not included)...[facility]05-14-2025 History of Present illness Narrative* Marilu Mota RN - 07/16/2024 5:03 PM EDT Staff from [facility] arrived to take patient back to facility. Patient off unit, oriented at baseline for this visit. Respirations easy and nonlabored, no distress noted. Patient off unit with all belongings via wheelchair. * Marilu Mota RN - 07/16/2024 3:25 PM EDT Call placed to [facility] as phone number for [facility] continues to ring busy. Staff states they willget a hold of the nurse and have her call this RN. Care ongoing. * Marilu Mota RN - 07/16/2024 2:52 PM EDT Attempted to call [facility] to update on patient being discharged and see if they are able to provide transportation. Line ringing busy at this time. Care ongoing. * Julia Mcelroy - 07/16/2024 12:02 PM EDT Comprehensive Nutrition Assessment Type and Reason for Visit: Reassess Nutrition Recommendations/Plan: Continue current diet. Consume >75% of estimated needs. Malnutrition Assessment: Malnutrition Status: No malnutrition (07/15/24 0905) Context: Acute Illness Findings of the 6 clinical characteristics of malnutrition: Energy Intake: Mild decrease in energy intake Weight Loss: No weight loss Body Fat Loss: No body fat loss Muscle Mass Loss: No muscle mass loss Fluid Accumulation: No fluid accumulation Zoning Engineer Strength: Not Performed Nutrition Assessment: GI function improving as NPO has been advanced to a regular dysphagia- pureed; mildly thick (nectardiet). Upon entry lunch was untouched with reports of meal intake being 75-100% consumed. Pt reported to have no GI upset, chewing difficulty, or diarrhea. Pt denied any questions at this time. Nutrition Related Findings: active bowel sounds and no edema Wound Type: None Current Nutrition Intake & Therapies: Average Meal Intake: 76-100% Average Supplements Intake: None Ordered ADULT DIET; Dysphagia - Pureed; Mildly Thick ([place]) Anthropometric Measures: Height: 177.8 cm (5' 10 ) [place] Body Weight (IBW): 166 lbs (75 kg) Admission Body Weight: 95.1 kg (209 lb 10.5 oz) Current Body Weight: 96.4 kg (212 lb 8.4 oz), 128 % IBW. Weight Source: Bed scale Current BMI (kg/m2): 30.5 Usual Body Weight: 93.4 kg (206 lb) % Weight Change (Calculated): 3.2 Weight Adjustment For: No Adjustment BMI Categories: Obese Class 1 (BMI 30.0-34.9) Hematology: Recent Labs 07/14/24 0736 07/15/24 0630 07/16/24 0615 WBC 16.9* 8.6 6.0 HGB 15.1 12.2* 11.1* HCT 46.3 37.6* 34.7* Chemistry: Recent Labs 07/14/24 0736 07/15/24 0630 07/16/24 0615 NA 140 139 141 K 4.6 4.4 4.1 CL 101 109* 111* CO2 25 16* 20 GLUCOSE 111* 94 82 BUN 29* 24* 11 CREATININE 1.3* 0.9 0.8 CALCIUM 9.8 8.5* 8.1* Recent Labs 07/14/24 0736 AST 18 ALT 19 ALKPHOS 196* BILITOT 0.3 LIPASE 62* Estimated Daily Nutrient Needs: Energy Requirements Based On: Kcal/kg Weight Used for Energy Requirements: Current Energy (kcal/day): 3659-2007 (17-20 kcal/kg) Weight Used for Protein Requirements: [place] Protein (g/day): 75-90 (1.0-1.2g/kg) Method Used for Fluid Requirements: 1 ml/kcal Fluid (ml/day): 0197-7394 Nutrition Diagnosis: Predicted inadequate energy intake related to altered GI function as evidenced by NPO or clear liquid status due to medical condition (history of bowel obstructions) Nutrition Interventions: Food and/or Nutrient Delivery: Continue Current Diet Nutrition Education/Counseling: Education/Counseling not appropriate Coordination of Nutrition Care: Continue to monitor while inpatient Plan of Care discussed with: pt Goals: Goals: Meet at least 75% of estimated needs, PO intake 75% or greater Type of Goal: Continue current goal Previous Goal Met: Progressing toward Goal(s) Nutrition Monitoring and Evaluation: Behavioral-Environmental Outcomes: Knowledge or Skill Food/Nutrient Intake Outcomes: Food and Nutrient Intake Physical Signs/Symptoms Outcomes: Biochemical Data, Nausea or Vomiting, Meal Time Behavior, GI Status, Nutrition Focused Physical Findings Discharge Planning: Continue current diet Julia Mcelroy Contact: [phone], LD at 07/16/2024 1:11 PM EDT * Marilu Mota RN - 07/16/2024 9:25 AM EDT RN in to assess patient. Patient resting in bed awake, A/Ox2, oriented/disoriented at times at baseline. Hypervebal, impulsive, poor sensory awareness, Respirations Easy and Nonlabored. Lung sounds rhonchi throughout, baseline for this visit. Patient denies pain. Assessment and vital signs completed as charted. Call light within reach, declines needs or concerns at this time. Care ongoing. * Dorota Woodson APRN - CNP - 07/16/2024 6:40 AM EDT Progress Note SUBJECTIVE: Patient seen for f/u of Complicated UTI (urinary tract infection). He resting in bed no distress. Stated I'm fine . No complaints. Stated I want to go back to sleep now ROS: Constitutional: negative for fevers, and negative [...] otherwise stated in HPI OBJECTIVE: Vitals: Vitals: 07/16/24 0216 BP: 117/65 Pulse: 72 Resp: 18 Temp: 98.1 F (36.7 C) SpO2: 97% Weight - Scale: 97.1 kg (214 lb) Height: 177.8 cm (5' 10 ) Weight Wt Readings from Last 3 Encounters: 07/16/24 97.1 kg (214 lb) 06/19/24 93.6 kg (206 lb 4.8 oz) 04/23/24 89.6 kg (197 lb 8 oz) Body mass index is 30.71 kg/m . 24HR INTAKE/OUTPUT: Intake/Output Summary (Last 24 hours) at 07/16/2024 0640 Last data filed at 07/16/2024 0444 Gross per 24 hour Intake 5162.66 ml Output 650 ml Net 4512.66 ml Exam: GEN: Awake, alert and pleasant. EYES: EOMI, pupils equal NECK: Supple. No [...] Diagnostic Data: Complete Blood Count: Recent Labs 07/14/24 0736 07/15/24 0630 WBC 16.9* 8.6 RBC 4.70 3.77* HGB 15.1 12.2* HCT 46.3 37.6* MCV 98.5 99.7 MCH 32.1 32.4 MCHC 32.6 32.4 RDW 12.8 13.0 PLT 287 205 MPV 9.2 9.0 Last 3 Blood Glucose: Recent Labs 07/14/24 0736 07/15/24 0630 GLUCOSE 111* 94 Comprehensive Metabolic Profile: Recent Labs 07/14/24 0736 07/15/24 0630 NA 140 139 K 4.6 4.4 CL 101 109* CO2 25 16* BUN 29* 24* CREATININE 1.3* 0.9 GLUCOSE 111* 94 CALCIUM 9.8 8.5* BILITOT 0.3 -- ALKPHOS 196* -- AST 18 -- ALT 19 -- Urinalysis: Lab Results Component Value Date/Time NITRU POSITIVE 07/14/2024 09:00 AM COLORU Yellow 07/14/2024 09:00 AM PHUR 6.0 07/14/2024 09:00 AM PHUR 6.0 06/11/2023 03:28 PM WBCUA 20 TO 50 07/14/2024 09:00 AM RBCUA 0 TO 2 07/14/2024 09:00 AM MUCUS 1+ 07/14/2024 09:00 AM TRICHOMONAS NOT REPORTED 12/05/2018 06:15 AM YEAST NOT REPORTED 12/05/2018 06:15 AM BACTERIA 3+ 07/14/2024 09:00 AM LEUKOCYTESUR TRACE 07/14/2024 09:00 AM UROBILINOGEN Normal 07/14/2024 09:00 AM BILIRUBINUR NEGATIVE 07/14/2024 09:00 AM GLUCOSEU NEGATIVE 07/14/2024 09:00 AM GLUCOSEU NEGATIVE 10/31/2010 12:33 PM KETUA TRACE 07/14/2024 09:00 AM AMORPHOUS 2+ 06/12/2022 11:10 AM HgBA1c: No results found for: LABA1C Lactic Acid: Lab Results Component Value Date/Time LACTA 1.7 07/14/2024 07:36 AM LACTA 0.6 06/12/2023 05:10 AM LACTA 1.3 09/02/2022 07:35 PM Latest Reference Range & Units 07/14/24 09:01 Date, Stool #1 [id number] Occult Blood, Stool #1 NEGATIVE POSITIVE ! ROTAVIRUS ANTIGEN, STOOL Rpt Time, Stool #1 901 BLOOD OCCULT STOOL SCREEN #1 Rpt ! C. DIFFICILE TOXIN MOLECULAR Rpt (IP) C DIFF TOXIN/ANTIGEN Rpt Rotavirus NEGATIVE NEGATIVE C DIFF AG + TOXIN NEGATIVE NEGATIVE GASTROINTESTINAL PANEL, MOLECULAR Rpt (IP) !: Data is abnormal (IP): In Process Rpt: View report in Results Review for more information Radiology/Imaging: XR ABDOMEN (KUB) (SINGLE AP VIEW) Final Result Dilated small bowel and colon, favoring sequela ileus versus partial small bowel obstruction as suggested on recent CT. Attention on follow-up. CT ABDOMEN PELVIS W IV CONTRAST Additional Contrast? None Final Result 1. Dilated small bowel loops with air-fluid levels with gradual transition point seen at the patient's anastomosis in the left lower quadrant suggesting partial obstruction. 2. Segmental areas of hyperenhancement and thickening of the distal ileum could relate to underdistention although a form of ileitis is difficult to exclude. 3. Stable partially calcified subcapsular collection seen involving the left kidney ASSESSMENT / PLAN: MEDICAL DECISION MAKING: Primary Problem(s): Complicated UTI (urinary tract infection) Differential diagnoses: Cystitis, UTI, ureteritis Condition is an undiagnosed new problem with uncertain prognosis Condition is stable Treatment plan: Monitor labs replace electrolytes BC x 1-no growth UC-EColi Up with assistance Imaging: no further imaging studies ordered today Medications: Stop IV fluids Stop IVCipro Start oral Cipro Medication Monitoring / High Risk Medications: none Ileitis versus partial bowel obstruction Condition is stable Treatment plan: Appreciate Dr. Sawant Pureed diet with nector thicken liquids Monitor stools GI panel-negative C. Difficile-negative Rotovirus-Negative Stool occult blood-positive Imaging: no further imaging studies ordered today Medications: Continue Cipro flagyl Continue Protonix Seizure activity Condition is a chronic stable condition Treatment plan: Monitor for seizure activity Imaging: no further imaging studies ordered today Medications: Continue Lamictal Continue Keppra will change to IV if needed Continue Vimpat will change to IV if needed Continue Ativan Nutrition status: Well developed, well nourished with no malnutrition Dermatology Nurse Practitioner consult initiated I/O Daily weight Monitor Daily intake Nutritional Supplements as tolerated MALNUTRITION ASSESSMENT AND PLAN The following was documented by the Dietitian: Malnutrition Assessment Context of Malnutrition: Acute Illness (07/15/24904) Acute Illness - Energy Intake : Mild decrease in energy intake (07/15/24904) Acute Illness - Weight Loss : No weight loss (07/15/24904) Acute Illness - Body Fat Loss: No body fat loss (07/15/24904) Acute Illness - Muscle Mass Loss: No muscle mass loss (07/15/24904) Acute Illness - Fluid Accumulation : No fluid accumulation (07/15/24904) Acute Illness - Zoning Engineer Strength: Not Performed (07/15/24904) Acute Illness - Malnutrition Score: 0 (07/15/24904) Malnutrition Status: No malnutrition (07/15/24904) I agree with the dietitian's malnutrition assessment. Medical Nutrition Therapy: continue current nutrition therapy Hospital Prophylaxis: DVT: none due to rectal bleeding Stress Ulcer: PPI Disposition: Shared decision making: All test results, treatment options and disposition options were discussed with the patient today Social determinants of health that may impact management: none Code status: Full Code Disposition: Discharge plan is home [facility] Advanced Care Planning documentation: [x] I have [...] the patient's medical record. [DOES NOT SATISFY [facility] PERFORMANCE] RAISA Mejia CNP , RAISA, PRODUCTION WOOD CRAFTSMAN-C Hospitalist Medicine 07/16/2024, 6:40 AM Cosigned by Lyla Burciaga MD at 07/16/2024 8:32 AM EDT Associated attestation - Lyla Burciaga MD - 07/16/2024 8:32 AM EDT Images from the original note were not included. [address], [address] Attestation Patient: Amol Taylor Date of Admission: 07/14/2024 7:08 AM Hospital Day # 2 Date of Evaluation: 07/16/2024 I personally evaluated and examined the patient [id number] in conjunction with the PA/PRODUCTION WOOD CRAFTSMAN and agree with the management and dispostition of the patient. Please see the PA/PRODUCTION WOOD CRAFTSMAN's note for full details.My gee findings are: SUBJECTIVE: Patient seen for follow up of Complicated UTI (urinary tract infection). He is doing good with no concerns. No n/v/d. He did have a BM. He is feeling sleepy this AM. OBJECTIVE: Vitals: Temp: 98.1 F (36.7 C) BP: 117/65 Respirations: 18 Pulse: 72 SpO2: 97 % Weight Wt Readings from Last 3 Encounters: 07/16/24 97.1 kg (214 lb) 06/19/24 93.6 kg (206 lb 4.8 oz) 04/23/24 89.6 kg (197 lb 8 oz) Body mass index is 30.71 kg/m . 24HR INTAKE/OUTPUT: Intake/Output Summary (Last 24 hours) at 07/16/2024 0831 Last data filed at 07/16/2024 0444 Gross per 24 hour Intake 5162.66 ml Output 650 ml Net 4512.66 ml Exam: GEN: Awake, alert and oriented [...] lesions. DATA: Complete Blood Count: Recent Labs 07/14/24 0736 07/15/24 0630 07/16/24 0615 WBC 16.9* 8.6 6.0 RBC 4.70 3.77* 3.43* HGB 15.1 12.2* 11.1* HCT 46.3 37.6* 34.7* MCV 98.5 99.7 101.2 RDW 12.8 13.0 12.9 PLT 287 205 164 Recent Labs 07/14/24 0736 07/15/24 0630 07/16/24 0615 NEUTROABS 14.99* 5.51 3.55 LYMPHOPCT 5* 22* 26 LYMPHSABS 0.91* 1.86 1.57 MONOPCT 5 9 7 BASOPCT 0 1 1 IMMGRAN 0 0 0 CMP: Lab Results Component Value Date GLUCOSE 82 07/16/2024 BUN 11 07/16/2024 CREATININE 0.8 07/16/2024 NA 141 07/16/2024 K 4.1 07/16/2024 CALCIUM 8.1 (L) 07/16/2024 CL 111 (H) 07/16/2024 CO2 20 07/16/2024 BILITOT 0.3 07/14/2024 ALKPHOS 196 (H) 07/14/2024 ALT 19 07/14/2024 AST 18 07/14/2024 UA: Lab Results Component Value Date COLORU Yellow 07/14/2024 WBCUA 20 TO 50 07/14/2024 RBCUA 0 TO 2 07/14/2024 LEUKOCYTESUR TRACE (A) 07/14/2024 GLUCOSEU NEGATIVE 07/14/2024 KETUA TRACE (A) 07/14/2024 PROTEINU 2+ (A) 07/14/2024 HGBUR 2+ (A) 07/14/2024 CASTUA 5 TO 10 HYALINE 07/14/2024 BACTERIA 3+ (A) 07/14/2024 YEAST NOT REPORTED 12/05/2018 Lactic Acid: Lab Results Component Value Date/Time LACTA 1.7 07/14/2024 07:36 AM LACTA 0.6 06/12/2023 05:10 AM LACTA 1.3 09/02/2022 07:35 PM High Sensitivity Troponin: No results for input(s): TROPHS in the last 72 hours. Radiology/Imaging: XR ABDOMEN (KUB) (SINGLE AP VIEW) Final Result Dilated small bowel and colon, favoring sequela ileus versus partial small bowel obstruction as suggested on recent CT. Attention on follow-up. CT ABDOMEN PELVIS W IV CONTRAST Additional Contrast? None Final Result 1. Dilated small bowel loops with air-fluid levels with gradual transition point seen at the patient's anastomosis in the left lower quadrant suggesting partial obstruction. 2. Segmental areas of hyperenhancement and thickening of the distal ileum could relate to underdistention although a form of ileitis is difficult to exclude. 3. Stable partially calcified subcapsular collection seen involving the left kidney ASSESSMENT: Principal Problem: Complicated UTI (urinary tract infection) Active Problems: MR (mental retardation), severe Ileitis Resolved Problems: Epileptic seizures (HCC) PLAN: I agree with the plan as outlined in the PRODUCTION WOOD CRAFTSMAN/PA's note Disposition: Discharge plan is pending Please note that this chart was generated using voice recognition [employer] dictation software. Although every effort was made to ensure the accuracy of this automated driller and broacher, some errors in driller and broacher may have occurred. Lyla Burciaga MD 07/16/2024 8:31 AM * Marilu Mota RN - 07/16/2024 6:27 AM EDT Report received from [facility], checked in bedside with patient who is resting in bed with eyes closed. Easy nonlabored respirations noted. No acute distress noted. Care ongoing. * Marcella Desai RN - 07/15/2024 7:03 PM EDT Service Coordinator Elderly Facility to bedside to complete morning assessment. Upon entry to room, pt awake and lying in bed, respirations even and unlabored while on room air. Vitals obtained and assessment completed, see flow sheet for details. Pt denies needs from real estate underwriter at this time. Call light in reach. Care ongoing. * Jami Sawant DO - 07/15/2024 1:48 PM EDT General Surgery: Daily Progress Note PATIENT NAME: Amol Taylor TODAY'S DATE: 07/15/2024, 1:48 PM CC: Feeling fine SUBJECTIVE: Pt seen and examined at bedside this AM. No acute events overnight. Continues to have bowel function. Tolerating liquid diet today. OBJECTIVE: VITALS: BP 126/69 Pulse 66 Temp (!) 96.4 F (35.8 C) (Temporal) Resp 20 Ht 1.778 m (5' 10 ) Wt 96.4 kg (212 lb 9.6 oz) SpO2 95% BMI 30.50 kg/m INTAKE/OUTPUT: Intake/Output Summary (Last 24 hours) at 07/15/2024 1348 Last data filed at 07/15/2024 0458 Gross per 24 hour Intake 2240 ml Output -- Net 2240 ml PHYSICAL EXAM: General Appearance: awake, alert, in no acute distress HEENT: Normocephalic, atraumatic, mucus membranes moist Heart: Regular rate and rhythm Lungs: Equal chest rise bilaterally, no accessory muscle use Abdomen: Soft, nontender, nondistended Extremities: No cyanosis, pitting edema, rashes noted. Skin: Skin color, texture, turgor normal. No rashes or lesions. Data: CBC with Differential: Lab Results Component Value Date/Time WBC 8.6 07/15/2024 06:30 AM RBC 3.77 07/15/2024 06:30 AM RBC 3.43 10/31/2010 11:48 AM HGB 12.2 07/15/2024 06:30 AM HCT 37.6 07/15/2024 06:30 AM PLT 205 07/15/2024 06:30 AM PLT 206 10/31/2010 11:48 AM MCV 99.7 07/15/2024 06:30 AM MCH 32.4 07/15/2024 06:30 AM MCHC 32.4 07/15/2024 06:30 AM RDW 13.0 07/15/2024 06:30 AM LYMPHOPCT 22 07/15/2024 06:30 AM MONOPCT 9 07/15/2024 06:30 AM EOSPCT 5 07/15/2024 06:30 AM BASOPCT 1 07/15/2024 06:30 AM MONOSABS 0.73 07/15/2024 06:30 AM LYMPHSABS 1.86 07/15/2024 06:30 AM EOSABS 0.43 07/15/2024 06:30 AM BASOSABS 0.04 07/15/2024 06:30 AM DIFFTYPE NOT REPORTED 04/13/2021 07:30 AM BMP: Lab Results Component Value Date/Time NA 139 07/15/2024 06:30 AM K 4.4 07/15/2024 06:30 AM CL 109 07/15/2024 06:30 AM CO2 16 07/15/2024 06:30 AM BUN 24 07/15/2024 06:30 AM CREATININE 0.9 07/15/2024 06:30 AM CALCIUM 8.5 07/15/2024 06:30 AM GFRAA >60 09/10/2021 10:31 PM LABGLOM 88 07/15/2024 06:30 AM LABGLOM >90 06/21/2023 05:45 AM GLUCOSE 94 07/15/2024 06:30 AM GLUCOSE 92 10/31/2010 11:48 AM Radiology Review: XR ABDOMEN (KUB) (SINGLE AP VIEW) Result Date: 07/15/2024 Dilated small bowel and colon, favoring sequela ileus versus partial small bowel obstruction as suggested on recent CT. Attention on follow-up. CT ABDOMEN PELVIS W IV CONTRAST Additional Contrast? None Result Date: 07/14/2024 1. Dilated small bowel loops with air-fluid levels with gradual transition point seen at the patient's anastomosis in the left lower quadrant suggesting partial obstruction. 2. Segmental areas of hyperenhancement and thickening of the distal ileum could relate to underdistention although a form of ileitis is difficult to exclude. 3. Stable partially calcified subcapsular collection seen involvingthe left kidney ASSESSMENT: Active Hospital Problems Diagnosis Date Noted Complicated UTI (urinary tract infection) [N39.0] 07/14/2024 Ileitis [K52.9] 07/14/2024 MR (mental retardation), severe [F72] 10[birth year]20/2012 69 y.o. male with partial small bowel obstruction versus ileitis Plan: KUB reviewed I believe to a certain degree some of the dilation we see is chronic in nature As long as he continues to have bowel function okay to advance diet as tolerated No plans for acute surgical intervention at this time * Lupe Ford RN - 07/15/2024 10:19 AM EDT Pt resting in bed comfortably. Medications given crushed in pudding and water provided. Patient took medications well with no issues. IV and pumps checked. Pt states no other need at this time. * Julia Mcelroy - 07/15/2024 8:20 AM EDT Comprehensive Nutrition Assessment Type and Reason for Visit: Initial Nutrition Recommendations/Plan: Monitor duration of NPO and fluid intake Meet >75% of estimated needs. Diet advancement to low fiber bland diet Follow a dysphagia Pureed, nectar thick liquids consistency. Malnutrition Assessment: Malnutrition Status: No malnutrition (07/15/24 0905) Context: Acute Illness Findings of the 6 clinical characteristics of malnutrition: Energy Intake: Mild decrease in energy intake Weight Loss: No weight loss Body Fat Loss: No body fat loss Muscle Mass Loss: No muscle mass loss Fluid Accumulation: No fluid accumulation Zoning Engineer Strength: Not Performed Nutrition Assessment: Predicted inadequate energy intake r/t altered GI function aeb NPO status due to being admitted fordiarrhea and decreased bowel sounds. Pt appeared frustrated and disinterested during visit (known MRDD). 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 Pt denied any nutritional concerns claiming he is fine. Diet a dvancement to a low fiber bland diet in guidelines to a dysphagia pureed, nectar thick liquids consistency. Nutrition Related Findings: active bowel sounds and no edema Wound Type: None Current Nutrition Intake & Therapies: Average Meal Intake: NPO Average Supplements Intake: None Ordered, NPO ADULT DIET; Full Liquid Anthropometric Measures: Height: 177.8 cm (5' 10 ) [place] Body Weight (IBW): 166 lbs (75 kg) Admission Body Weight: 95.1 kg (209 lb 10.5 oz) Current Body Weight: 96.4 kg (212 lb 8.4 oz), 128 % IBW. Weight Source: Bed scale Current BMI (kg/m2): 30.5 Usual Body Weight: 93.4 kg (206 lb) (1 month ago.) % Weight Change (Calculated): 3.2 Weight Adjustment For: No Adjustment BMI Categories: Obese Class 1 (BMI 30.0-34.9) Hematology: Recent Labs 07/14/24 0736 07/15/24 0630 WBC 16.9* 8.6 HGB 15.1 12.2* HCT 46.3 37.6* Chemistry: Recent Labs 07/14/24 0736 07/15/24 0630 NA 140 139 K 4.6 4.4 CL 101 109* CO2 25 16* GLUCOSE 111* 94 BUN 29* 24* CREATININE 1.3* 0.9 CALCIUM 9.8 8.5* Recent Labs 07/14/24 0736 AST 18 ALT 19 ALKPHOS 196* BILITOT 0.3 LIPASE 62* Estimated Daily Nutrient Needs: Energy Requirements Based On: Kcal/kg Weight Used for Energy Requirements: Current Energy (kcal/day): 8315-4579 (17-20kcal/kg) Weight Used for Protein Requirements: [place] Protein (g/day): 75-90 (1.0-1.2) Method Used for Fluid Requirements: 1 ml/kcal Fluid (ml/day): 7897-0020 Nutrition Diagnosis: Predicted inadequate energy intake related to Altered GI structure as evidenced by NPO or clear liquid status due to medical condition, diarrhea Nutrition Interventions: Food and/or Nutrient Delivery: Continue NPO Nutrition Education/Counseling: Education/Counseling not appropriate Coordination of Nutrition Care: Continue to monitor while inpatient Plan of Care discussed with: pt Goals: Goals: Meet at least 75% of estimated needs, PO intake 50% or greater Type of Goal: New goal Previous Goal Met: New Goal Nutrition Monitoring and Evaluation: Behavioral-Environmental Outcomes: Knowledge or Skill Food/Nutrient Intake Outcomes: Diet Advancement/Tolerance, Food and Nutrient Intake Physical Signs/Symptoms Outcomes: Biochemical Data, Nausea or Vomiting, Diarrhea, Meal Time Behavior, Nutrition Focused Physical Findings, Weight Discharge Planning: Continue current diet Julia Mcelroy Contact: [phone] Cosigned by Rinku Montalvo, GEORGINA, LD at 07/15/2024 11:36 AM EDT * Dorota Woodson, RAISA - PATTERN PAINTER - 07/15/2024 6:42 AM EDT Progress Note SUBJECTIVE: Patient seen for f/u of Complicated UTI (urinary tract infection). He resting in bed no distress. Stated I'm fine . ROS: Constitutional: negative for fevers, and negative [...] otherwise stated in HPI OBJECTIVE: Vitals: Vitals: 07/15/24 0915 BP: 126/69 Pulse: 66 Resp: 20 Temp: (!) 96.4 F (35.8 C) SpO2: 95% Weight - Scale: 96.4 kg (212 lb 9.6 oz) Height: 177.8 cm (5' 10 ) Weight Wt Readings from Last 3 Encounters: 07/15/24 96.4 kg (212 lb 9.6 oz) 06/19/24 93.6 kg (206 lb 4.8 oz) 04/23/24 89.6 kg (197 lb 8 oz) Body mass index is 30.5 kg/m . 24HR INTAKE/OUTPUT: Intake/Output Summary (Last 24 hours) at 07/15/2024 0938 Last data filed at 07/15/2024 0458 Gross per 24 hour Intake 2240 ml Output -- Net 2240 ml Exam: GEN: Awake, alert and pleasant. EYES: EOMI, pupils equal NECK: Supple. No [...] Diagnostic Data: Complete Blood Count: Recent Labs 07/14/24 0736 07/15/24 0630 WBC 16.9* 8.6 RBC 4.70 3.77* HGB 15.1 12.2* HCT 46.3 37.6* MCV 98.5 99.7 MCH 32.1 32.4 MCHC 32.6 32.4 RDW 12.8 13.0 PLT 287 205 MPV 9.2 9.0 Last 3 Blood Glucose: Recent Labs 07/14/24 0736 07/15/24 0630 GLUCOSE 111* 94 Comprehensive Metabolic Profile: Recent Labs 07/14/24 0736 07/15/24 0630 NA 140 139 K 4.6 4.4 CL 101 109* CO2 25 16* BUN 29* 24* CREATININE 1.3* 0.9 GLUCOSE 111* 94 CALCIUM 9.8 8.5* BILITOT 0.3 -- ALKPHOS 196* -- AST 18 -- ALT 19 -- Urinalysis: Lab Results Component Value Date/Time NITRU POSITIVE 07/14/2024 09:00 AM COLORU Yellow 07/14/2024 09:00 AM PHUR 6.0 07/14/2024 09:00 AM PHUR 6.0 06/11/2023 03:28 PM WBCUA 20 TO 50 07/14/2024 09:00 AM RBCUA 0 TO 2 07/14/2024 09:00 AM MUCUS 1+ 07/14/2024 09:00 AM TRICHOMONAS NOT REPORTED 12/05/2018 06:15 AM YEAST NOT REPORTED 12/05/2018 06:15 AM BACTERIA 3+ 07/14/2024 09:00 AM LEUKOCYTESUR TRACE 07/14/2024 09:00 AM UROBILINOGEN Normal 07/14/2024 09:00 AM BILIRUBINUR NEGATIVE 07/14/2024 09:00 AM GLUCOSEU NEGATIVE 07/14/2024 09:00 AM GLUCOSEU NEGATIVE 10/31/2010 12:33 PM KETUA TRACE 07/14/2024 09:00 AM AMORPHOUS 2+ 06/12/2022 11:10 AM HgBA1c: No results found for: LABA1C Lactic Acid: Lab Results Component Value Date/Time LACTA 1.7 07/14/2024 07:36 AM LACTA 0.6 06/12/2023 05:10 AM LACTA 1.3 09/02/2022 07:35 PM Latest Reference Range & Units 07/14/24 09:01 Date, Stool #1 [id number] Occult Blood, Stool #1 NEGATIVE POSITIVE ! ROTAVIRUS ANTIGEN, STOOL Rpt Time, Stool #1 901 BLOOD OCCULT STOOL SCREEN #1 Rpt ! C. DIFFICILE TOXIN MOLECULAR Rpt (IP) C DIFF TOXIN/ANTIGEN Rpt Rotavirus NEGATIVE NEGATIVE C DIFF AG + TOXIN NEGATIVE NEGATIVE GASTROINTESTINAL PANEL, MOLECULAR Rpt (IP) !: Data is abnormal (IP): In Process Rpt: View report in Results Review for more information Radiology/Imaging: XR ABDOMEN (KUB) (SINGLE AP VIEW) Final Result Dilated small bowel and colon, favoring sequela ileus versus partial small bowel obstruction as suggested on recent CT. Attention on follow-up. CT ABDOMEN PELVIS W IV CONTRAST Additional Contrast? None Final Result 1. Dilated small bowel loops with air-fluid levels with gradual transition point seen at the patient's anastomosis in the left lower quadrant suggesting partial obstruction. 2. Segmental areas of hyperenhancement and thickening of the distal ileum could relate to underdistention although a form of ileitis is difficult to exclude. 3. Stable partially calcified subcapsular collection seen involving the left kidney ASSESSMENT / PLAN: MEDICAL DECISION MAKING: Primary Problem(s): Complicated UTI (urinary tract infection) Differential diagnoses: Cystitis, UTI, ureteritis Condition is an undiagnosed new problem with uncertain prognosis Condition is stable Treatment plan: Monitor labs replace electrolytes BC x 1-no growth UC-pending Up with assistance Imaging: no further imaging studies ordered today Medications: IV fluids IV Rocephin Medication Monitoring / High Risk Medications: none Ileitis versus partial bowel obstruction Condition is stable Treatment plan: Appreciate Dr. Sawant [place] diet Monitor stools GI panel-pending C. Difficile-negative Rotovirus-Negative Stool occult blood-positive Imaging: no further imaging studies ordered today Medications: IV fluids IV Rocephin IV Flagyl Continue Protonix Seizure activity Condition is a chronic stable condition Treatment plan: Monitor for seizure activity Imaging: no further imaging studies ordered today Medications: Continue Lamictal Continue Keppra will change to IV if needed Continue Vimpat will change to IV if needed Continue Ativan Nutrition status: Well developed, well nourished with no malnutrition Dermatology Nurse Practitioner consult initiated I/O Daily weight Monitor Daily intake Nutritional Supplements as tolerated MALNUTRITION ASSESSMENT AND PLAN The following was documented by the Dietitian: Malnutrition Assessment Context of Malnutrition: Acute Illness (07/15/24904) Acute Illness - Energy Intake : Mild decrease in energy intake (07/15/24904) Acute Illness - Weight Loss : No weight loss (07/15/24904) Acute Illness - Body Fat Loss: No body fat loss (07/15/24904) Acute Illness - Muscle Mass Loss: No muscle mass loss (07/15/24904) Acute Illness - Fluid Accumulation : No fluid accumulation (07/15/24904) Acute Illness - Zoning Engineer Strength: Not Performed (07/15/24904) Acute Illness - Malnutrition Score: 0 (07/15/24904) Malnutrition Status: No malnutrition (07/15/24904) I agree with the dietitian's malnutrition assessment. Medical Nutrition Therapy: continue current nutrition therapy [facility] Hospital Prophylaxis: DVT: none due to rectal bleeding Stress Ulcer: PPI Disposition: Shared decision making: All test results, treatment options and disposition options were discussed with the patient today Social determinants of health that may impact management: none Code status: Full Code Disposition: Discharge plan is home [facility] Advanced Care Planning documentation: [x] I have [...] medical record. [DOES NOT SATISFY [employer]] RAISA Mejia CNP , JOSEPH KLINE-C Hospitalist Medicine 07/15/2024, 9:38 AM Cosigned by Lyla Burciaga MD at 07/15/2024 6:20 PM EDT Associated attestation - Lyla Burciaga MD - 07/15/2024 6:20 PM EDT Images from the original note were not included. [address], [address] Attestation Patient: Amol Taylor Date of Admission: 07/14/2024 7:08 AM Hospital Day # 1 Date of Evaluation: 07/15/2024 I personally evaluated and examined the patient [id number] in conjunction with the PA/PRODUCTION WOOD CRAFTSMAN and agree with the management and dispostition of the patient. Please see the PA/PRODUCTION WOOD CRAFTSMAN's note for full details.My gee findings are: SUBJECTIVE: Patient seen for follow up of Complicated UTI (urinary tract infection). He is doing good this AM.no n/v/d. He is doing well. He has been passing gas. OBJECTIVE: Vitals: Temp: (!) 96.4 F (35.8 C) BP: 125/73 Respirations: 18 Pulse: 72 SpO2: 97 % Weight Wt Readings from Last 3 Encounters: 07/15/24 96.4 kg (212 lb 9.6 oz) 06/19/24 93.6 kg (206 lb 4.8 oz) 04/23/24 89.6 kg (197 lb 8 oz) Body mass index is 30.5 kg/m . 24HR INTAKE/OUTPUT: Intake/Output Summary (Last 24 hours) at 07/15/2024 1820 Last data filed at 07/15/2024 1757 Gross per 24 hour Intake 2600 ml Output 650 ml Net 1950 ml Exam: GEN: Awake, alert and oriented [...] lesions. DATA: Complete Blood Count: Recent Labs 07/14/24 0736 07/15/24 06 WBC 16.9* 8.6 RBC 4.70 3.77* HGB 15.1 12.2* HCT 46.3 37.6* MCV 98.5 99.7 RDW 12.8 13.0 PLT 287 205 Recent Labs 07/14/24 0736 07/15/24 0630 NEUTROABS 14.99* 5.51 LYMPHOPCT 5* 22* LYMPHSABS 0.91* 1.86 MONOPCT 5 9 BASOPCT 0 1 IMMGRAN 0 0 CMP: Lab Results Component Value Date GLUCOSE 94 07/15/2024 BUN 24 (H) 07/15/2024 CREATININE 0.9 07/15/2024 NA 139 07/15/2024 K 4.4 07/15/2024 CALCIUM 8.5 (L) 07/15/2024 CL 109 (H) 07/15/2024 CO2 16 (L) 07/15/2024 BILITOT 0.3 07/14/2024 ALKPHOS 196 (H) 07/14/2024 ALT 19 07/14/2024 AST 18 07/14/2024 UA: Lab Results Component Value Date COLORU Yellow 07/14/2024 WBCUA 20 TO 50 07/14/2024 RBCUA 0 TO 2 07/14/2024 LEUKOCYTESUR TRACE (A) 07/14/2024 GLUCOSEU NEGATIVE 07/14/2024 KETUA TRACE (A) 07/14/2024 PROTEINU 2+ (A) 07/14/2024 HGBUR 2+ (A) 07/14/2024 CASTUA 5 TO 10 HYALINE 07/14/2024 BACTERIA 3+ (A) 07/14/2024 YEAST NOT REPORTED 12/05/2018 Lactic Acid: Lab Results Component Value Date/Time LACTA 1.7 07/14/2024 07:36 AM LACTA 0.6 06/12/2023 05:10 AM LACTA 1.3 09/02/2022 07:35 PM High Sensitivity Troponin: No results for input(s): TROPHS in the last 72 hours. Radiology/Imaging: XR ABDOMEN (KUB) (SINGLE AP VIEW) Final Result Dilated small bowel and colon, favoring sequela ileus versus partial small bowel obstruction as suggested on recent CT. Attention on follow-up. CT ABDOMEN PELVIS W IV CONTRAST Additional Contrast? None Final Result 1. Dilated small bowel loops with air-fluid levels with gradual transition point seen at the patient's anastomosis in the left lower quadrant suggesting partial obstruction. 2. Segmental areas of hyperenhancement and thickening of the distal ileum could relate to underdistention although a form of ileitis is difficult to exclude. 3. Stable partially calcified subcapsular collection seen involving the left kidney ASSESSMENT: Principal Problem: Complicated UTI (urinary tract infection) Active Problems: MR (mental retardation), severe Ileitis Resolved Problems: Epileptic seizures (HCC) PLAN: I agree with the plan as outlined in the PRODUCTION WOOD CRAFTSMAN/PA's note Disposition: Discharge plan is pending GS is following Please note that this chart was generated using voice recognition [employer] dictation software. Although every effort was made to ensure the accuracy of this automated driller and broacher, some errors in driller and broacher may have occurred. Lyla Burciaga MD 07/15/2024 6:20 PM * Tirso Bedolla RN - 07/14/2024 6:[address] Sawant at bedside. * Lanie Leonardo RN - 07/14/2024 6:26 PM EDT Patient assessment and vitals completed as charted. Patient Alert and oriented to self and time only. Pt is cooperative with assessment. Patient resting comfortably at this time, denies any pain at this time and denies any needs. Call light within patients reach and bed alarm on. Plan of care ongoing. * Gavi Vuong RN - 07/14/2024 2:40 PM EDT Surgery consult request sent to Dr. Sawant via [employer]. Dr. Sawant responded affirmatively. * Gavi Vuong RN - 07/14/2024 2:20 PM EDT This nurse and phleb attempted to draw blood for #2 blood culture at this time. Pt requires US start IV. Unable to get blood culture #2 at this time even with use of vein finder. IV fluids are running as ordered. * Gavi Vuong RN - 07/14/2024 1:45 PM EDT Pt admitted to room 310 from ER for complicated UTI and partial SBO. Pt alert and oriented to self and time only. Pt personal belongings at bedside. See assessment flowsheet for more information. documented in this encounterBon [facility] Hospital course Narrative* Dorota Woodson APRN - OTONIEL - 07/16/2024 11:15 AM EDT Images from the original note were not included. Discharge Summary Amol Taylor : 1955 Admit date: 07/14/2024 Discharge date: 07/16/2024 Admitting Physician: Lyla Burciaga MD Discharge Diagnoses: Principal Problem: Complicated UTI (urinary tract infection) Active Problems: MR (mental retardation), severe Ileitis Resolved Problems: Epileptic seizures ([facility]) Hospital Course: Amol Taylor is a 69 y.o. male admitted with UTI. He presented to the emergency room from [place] in [place]. Staff they reported patient had decreased bowel sounds and diarrhea for the past few days. He does have history of multiple admissions for multiple bowel obstructions. Diarrhea was nonbloody. When asking patient if he is having pain he states I'm fine . Patient does have history of MRDD, seizures, hearing loss and multiple bowel obstructions. During patient's evaluation BUN was 29 and creatinine 1.3 slightly elevated. LFTs normal. Patient had leukocytosis of 16.9 with a left shift. Patient did have diarrhea while in the emergency room and was negative for C. difficile. Stool was positive for blood. Urinalysis showed 20-50 WBCs, trace leukocyte and positive nitrites. CT abdomen and pelvis showed dilated small bowel loops with air-fluid levels with gradual transition point seen at the anastomosis site in the left lower quadrant suggesting partial obstruction, segment areas of hyperenhancement and thickening of the distal ileum could relate to under distention although a form of ileitis is difficult to exclude. Patient was initiated on IV Rocephin and Flagyl as well as IV fluids while in the emergency room. During patient's hospitalization labs were monitored electrolytes replaced. General surgery was consulted and patient was evaluated. It was determined that patient had no obstruction and he is tolerating diet was slowly advance. Patient has no pain. He is afebrile. He has no vomiting. Urine culture came back E. coli. I will continue patient with Cipro for UTI and to cover abdominal ileitis in addition to Flagyl on discharge. Plan will sameera discharge today he will follow-up with primary care. Consultants: , Gen Surg Procedures: none Complications: none Discharge Condition: fair Exam: GEN: Awake, alert and pleasant. EYES: EOMI, pupils equal NECK: Supple. No [...] Studies: Lab Results Component Value Date WBC 6.0 07/16/2024 HGB 11.1 (L) 07/16/2024 PLT 164 07/16/2024 Lab Results Component Value Date BUN 11 07/16/2024 CREATININE 0.8 07/16/2024 NA 141 07/16/2024 K 4.1 07/16/2024 CALCIUM 8.1 (L) 07/16/2024 CL 111 (H) 07/16/2024 CO2 20 07/16/2024 LABGLOM >90 07/16/2024 Lab Results Component Value Date WBCUA 20 TO 50 07/14/2024 RBCUA 0 TO 2 07/14/2024 LEUKOCYTESUR TRACE (A) 07/14/2024 GLUCOSEU NEGATIVE 07/14/2024 KETUA TRACE (A) 07/14/2024 PROTEINU 2+ (A) 07/14/2024 HGBUR 2+ (A) 07/14/2024 CASTUA 5 TO 10 HYALINE 07/14/2024 BACTERIA 3+ (A) 07/14/2024 YEAST NOT REPORTED 12/05/2018 XR ABDOMEN (KUB) (SINGLE AP VIEW) Result Date: 07/15/2024 EXAMINATION: ONE SUPINE XRAY VIEW(S) OF THE ABDOMEN 07/15/2024 6:27 am COMPARISON: 06/17/2024 HISTORY: ORDERING SYSTEM PROVIDED HISTORY: dilated bowel TECHNOLOGIST PROVIDED HISTORY: dilated bowel FINDINGS: Moderate colonic bowel gas. Some dilated loops of small bowel without convincing disproportionate small bowel dilatation. Spondylosis of the spine. Small bowel loops measure up to 5.8 cm in the left upper quadrant. Colonic distension measures up to approximately 6 cm in the right lower quadrant. Dilated small bowel and colon, favoring sequela ileus versus partial small bowel obstruction as suggested on recent CT. Attention on follow-up. CT ABDOMEN PELVIS W IV CONTRAST Additional Contrast? None Result Date: 07/14/2024 EXAMINATION: CT OF THE ABDOMEN AND PELVIS WITH CONTRAST 07/14/2024 8:39 am TECHNIQUE: CT of the abdomen and pelvis was performed with the administration of intravenous contrast. Multiplanar reformatted images are provided for review. Automated exposure control, iterative reconstruction, and/or weight based adjustment of the mA/kV was utilized to reduce the radiation dose to as low as reasonably achievable. COMPARISON: None. HISTORY: ORDERING SYSTEM PROVIDED HISTORY: diarrhea TECHNOLOGIST PROVIDED HISTORY: diarrhea Decision Support Exception - unselect if not a suspected or confirmed emergency medical condition->Emergency Medical Condition (MA) FINDINGS: Lower chest: Cardiomegaly. Lower lobe atelectasis. EG junction, stomach and duodenal sweep: Unremarkable Liver: Unremarkable Gallbladder: Unremarkable Biliary tree: Unremarkable Pancreas: Unremarkable for patient's age. Spleen: Unremarkable Kidneys and ureters: Partially calcified sub capsular collection seen along the left kidney measuring 4.3 by 1.4 cm is similar to slightly decreased from prior. Additional peripherally calcifiedcystic lesion seen just below this is stable. Adrenal glands: Unremarkable Retroperitoneal structures: Unremarkable Small bowel and colon: Dilated small bowel loops with air-fluid levels including distended stomach with more gradual transition distal to patient's anastomosis in the left lower quadrant with distended bowel proximal to the anastomosis are more normal caliber all distal and more decompressed involving the terminal ileum. Findings suggest partial obstruction. Exact transition pointis not seen. There is long segment hyperenhancement and thickening of 2 different segments of distal ileum that could relate to underdistention although a form of ileitis is difficult to exclude as there are few nonenlarged right lower quadrant mesenteric lymph nodes. This had a similar appearance on 06/16/2024 exam. Free fluid/air: None Lymph nodes: No enlarged lymph nodes Osseus structures: No destructive lesion Vasculature: No aneurysm Other: None 1. Dilated small bowel loops with air-fluid levels with gradual transition point seen at the patient's anastomosis in the left lower quadrant suggesting partial obstruction. 2. Segmental areas of hyperenhancement and thickening of the distal ileum could relate to underdistention although a form of ileitis is difficult to exclude. 3. Stable partially calcified subcapsular collection seen involvingthe left kidney Assessment and Plan: Patient Active Problem List Diagnosis Date Noted Complicated UTI (urinary tract infection) 07/14/2024 Ileitis 07/14/2024 Abnormal ECG 06/16/2024 Sinus tachycardia 06/16/2024 Small bowel obstruction (HCC) 04/19/2024 Pneumatosis intestinalis 05/01/2023 Seizure disorder (HCC) 02/12/2023 S/P placement of VNS (vagus nerve stimulation) device 02/11/2023 Dysphagia 02/11/2023 Intellectual disability 02/10/2023 SBO (small bowel obstruction) ([facility]) 06/21/2022 AFTAB (obstructive sleep apnea) 10/11/2016 MR (mental retardation), severe 10/20/2013 Discharge Medications: Medication List START taking these medications ciprofloxacin 500 MG tablet Commonly known as: CIPRO Take 1 tablet by mouth in the morning and at bedtime for 13 doses CONTINUE taking these medications acetaminophen 500 MG tablet Commonly known as: TYLENOL benzonatate 100 MG capsule Commonly known as: TESSALON calcium carbonate 500 MG chewable tablet Commonly known as: TUMS Debrox 6.5 % otic solution Generic drug: carbamide peroxide diazePAM 20 MG Gel Commonly known as: DIASTAT finasteride 5 MG tablet Commonly known as: PROSCAR hydrOXYzine HCl 25 MG tablet Commonly known [...] KEPPRA Take 2 tablets by mouth daily linaclotide 145 MCG capsule Commonly known as: LINZESS Take 1 capsule by mouth every morning (before breakfast) LORazepam 0.5 MG tablet Commonly known as: ATIVAN magnesium oxide 400 (240 Mg) MG tablet Commonly known as: MAG-OX meclizine 25 MG tablet Commonly known as: ANTIVERT melatonin 3 MG Tabs tablet olopatadine 0.2 % Soln ophthalmic solution Commonly known as: PATADAY ondansetron 4 MG disintegrating tablet Commonly known as: ZOFRAN-ODT Take 1 tablet by mouth 3 times daily as needed for Nausea or Vomiting pantoprazole 40 MG tablet Commonly known as: PROTONIX Take 1 tablet by mouth every morning (before breakfast) polyethylene glycol 17 g packet Commonly known as: GLYCOLAX * primidone 250 MG tablet Commonly known as: MYSOLINE * primidone 250 MG tablet Commonly known as: MYSOLINE ProAir HFA 108 (90 Base) MCG/ACT inhaler Generic drug: albuterol sulfate HFA sennosides-docusate sodium 8.6-50 MG tablet Commonly known as: SENOKOT-S tamsulosin 0.4 MG capsule Commonly known as: FLOMAX vitamin B-12 1000 MCG tablet Commonly known as: CYANOCOBALAMIN Vitamin D 25 MCG (1000 UT) Tabs tablet Commonly known as: CHOLECALCIFEROL * This list has 6 medication(s) that are the same as other medications prescribed for you. Read thedirections carefully, and ask your doctor or other care provider to review them with you. Where to Get Your Medications These medications were sent to [facility], [facility] [place], [place] - [address] - P [phone] - F [phone], [place] [address] ciprofloxacin 500 MG tablet Patient Instructions: Activity: activity as tolerated Diet: Pur e with nectar thickened liquids Wound Care: N/A Other: N/A Disposition: DC to [facility] Follow up: Patient will be followed by Carson Dior MD in 1-2 weeks CORE MEASURES on Discharge (if applicable) JASON/ARB in CHF: NA Statin in VT: NA ASA in VT: NA Statin in CVA: NA Antiplatelet in CVA: NA Total time spent on discharge services: 40 minutes Including the following activities: Evaluation and Management of patient Discussion with patient and/or surrogate about current care plan Coordination with Case Management and/or Staff Certified Nurse Midwife Coordination of care with Consultants (if applicable) Coordination of care with Receiving Facility Physician (if applicable) Completion of DME forms (if applicable) Preparation of Discharge Summary Preparation of Medication Reconciliation Preparation of Discharge Prescriptions Signed: RAISA Mejia CNP, RAISA, PRODUCTION WOOD CRAFTSMAN-C 07/16/2024, 11:15 AM Please note that this chart was generated using voice recognition [employer] dictation software. Although every effort was made to ensure the accuracy of this automated driller and broacher, some errors in driller and broacher may have occurred. Cosigned by Lyla Burciaga MD at 07/16/2024 1:04 PM EDT Associated attestation - Lyla Burciaga MD - 07/16/2024 1:04 PM EDT Images from the original note were not included. [address] , [place], [place], [address] Attestation Patient: Amol Taylor Date of Admission: 07/14/2024 7:08 AM Hospital Day # 2 Date of Evaluation: 07/16/2024 I personally evaluated and examined the patient [id number] in conjunction with the PA/PRODUCTION WOOD CRAFTSMAN and agree with the management and dispostition of the patient. Please see the PA/PRODUCTION WOOD CRAFTSMAN's note for full details.My gee findings are: Admission date: 07/14/2024 Discharge date: 07/16/2024 Principle Diagnosis: Complicated UTI (urinary tract infection) Exam: GEN: Awake, alert and oriented x3. [...] intact SKIN: No rashes. No skin lesions. Disposition: Discharge to Home Follow Up: Follow up with Carson Dior MD in 1-2 weeks Total time spent on discharge services: 40 minutes Including the following activities: Evaluation and Management of patient Discussion with patient and/or surrogate about current care plan Coordination with Case Management and/or Staff Certified Nurse Midwife Coordination of care with Consultants (if applicable) Coordination of care with Receiving Facility Physician (if applicable) Completion of DME forms (if applicable) Preparation of Discharge Summary Preparation of Medication Reconciliation Preparation of Discharge Prescriptions If there are any worsening or concerning signs or symptoms, patient will report to the ED and/or contact [id number] for immediate evaluation. Teach back method was used. All patient questions answered. Pt voiced understanding. Please note that this chart was generated using voice recognition [employer] dictation software. Although every effort was made to ensure the accuracy of this automated driller and broacher, some errors in driller and broacher may have occurred. Lyla Burciaga MD 07/16/2024 1:04 PM documented in this encounterBon [facility] Hospital Discharge instructions* Discharge Instr - JOYCE* Marilu Mota RN - 07/14/2024 2:12 PM EDT Continuity of Care Form Patient Name: Amol Taylor : 1955 Admit date: 07/14/2024 Discharge date: 07/16/2024 Code Status Order: Full Code Advance Directives: Admitting Physician: Lyla Burciaga MD PCP: Carson Dior MD Discharging Nurse: Marilu Mota RN Discharging Hospital Unit/Room#: 0310/0310-01 Discharging Unit Emergency Contact: Extended Emergency Contact Information Primary Emergency Contact: Susan Smith [address]: [address] [place] [address] Relation: Legal Guardian Secondary Emergency Contact: Eliazar [...] Problems: Patient Active Problem List Diagnosis Code MR (mental retardation), severe F72 SBO (small bowel obstruction) ([facility]) K56.609 AFTAB (obstructive sleep apnea) G47.33 Intellectual disability F79 S/P placement of VNS (vagus nerve stimulation) device Z96.89 Dysphagia R13.10 Seizure disorder ([facility]) G40.909 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 Small bowel obstruction ([facility]) K56.609 Abnormal ECG R94.31 Sinus tachycardia R00.0 Complicated UTI (urinary tract infection) N39.0 Ileitis K52.9 Isolation/Infection: Isolation No Isolation Patient Infection Status None to display Nurse Assessment: Last Vital Signs: BP 126/69 Pulse 66 Temp (!) 96.4 F (35.8 C) (Temporal) Resp 20 Ht 1.778 m(5' 10 ) Wt 96.4 kg (212 lb 9.6 oz) SpO2 95% BMI 30.50 kg/m Last documented pain score (0-10 scale): Last Weight: Wt Readings from Last 1 Encounters: 07/15/24 96.4 kg (212 lb 9.6 oz) Mental Status: oriented and alert x2, oriented and disoriented at times IV Access: - None Nursing Mobility/ADLs: Walking Dependant Transfer Dependant Bathing Dependent Dressing Dependent Toileting Dependent Feeding Independent Press Loader Dependent Med Delivery whole and prefers mixed with Pudding Wound Care Documentation and Therapy: Elimination: Continence: Bowel: No Bladder: No Urinary Catheter: None Colostomy/Ileostomy/Ileal Conduit: No Date of Last BM: 07/15/2024 Intake/Output Summary (Last 24 hours) at 07/15/2024 1028 Last data filed at 07/15/2024 0458 Gross per 24 hour Intake 2240 ml Output -- Net 2240 ml I/O last 3 completed shifts: In: 2240 [P.O.:50; I.V.:2190] Out: - Safety Concerns: At Risk for Falls, History of Seizures, and Aspiration Risk Impairments/Disabilities: Contractures - left hand Nutrition Therapy: Current Nutrition Therapy: - Oral Diet: Dysphagia - Pureed Routes of Feeding: Oral Liquids: [place] Thick Liquids Daily Fluid Restriction: no Last Modified Barium Swallow with Video (Video Swallowing Test): not done Treatments at the Time of Hospital Discharge: Respiratory Treatments: N/A Oxygen Therapy: is not on home oxygen therapy. Ventilator: - No ventilator support Rehab Therapies: Physical Therapy and Occupational Therapy Weight Bearing Status/Restrictions: No weight bearing restrictions Other Medical Equipment (for information only, NOT a DME order): wheelchair Other Treatments: N/A Patient's personal belongings (please select all that are sent with patient): None RN SIGNATURE: CASE MANAGEMENT/SOCIAL WORK SECTION Inpatient Status Date: 07/14/24 Readmission Risk Assessment Score: [facility] RISK OF UNPLANNED READMISSION 2.0 21.7 Total Score Discharging to Facility/ Agency Name: [facility] Address:[address] [place] [address] Fax: Dialysis Facility (if applicable) Name: Address: Dialysis Schedule: Phone: Fax: Environmental Technical Officer/Staff Certified Nurse Midwife signature: PHYSICIAN SECTION Prognosis: {Prognosis:9795253327} Condition at Discharge: { Patient Condition:918808880} Rehab Potential (if transferring to Rehab): {Prognosis:2365737606} Recommended Labs or Other Treatments After Discharge: Physician Certification: I certify the above information and transfer of Amol Taylor is necessaryfor the continuing treatment of the diagnosis listed and that he requires Intermediate/Mental Retardation/Developmental Disabilities Care for greater 30 days. Update Admission H&P: {CHP DME Changes in HandP:278356322} PHYSICIAN SIGNATURE: {Esignature:[id number]} documented in this encounterBon [facility]04[facility] History of Present illness Narrative* Shawnee Butler DO - 07/01/2024 10:30 AM EDT Chief Complaint Patient presents with Seizures Subjective Amol Taylor, 69 y.o., male HPI Patient presents today for a follow up. He ambulates in a wheelchair. He is here today with a caregiver. He had a small seizure on 05/29 and another on 06/13. He was inpatient since his last appt with us for a bowel obstruction. Patient resides at [facility] in [place]. He is still taking Keppra and Lamictal. Denies any recent falls. Patient is not in any therapy at this time. He is tolerating his medicine and not having any missed doses. Past Medical History: Diagnosis Date At moderate risk for fall BPH without urinary obstruction Chronic constipation Dyslipidemia (CMS/HCC) Glaucoma, unspecified glaucoma type, unspecified laterality (CMS/HCC) Hearing loss, unspecified hearing loss type, unspecified laterality Left ankle joint deformity Left arm weakness Macrocytic anemia Mild eczema Moderate developmental delay Osteoarthritis, unspecified osteoarthritis type, unspecified site Overactive bladder Overweight Partial small bowel obstruction (CMS/HCC) Seizure disorder (CMS/HCC) Unsteady gait Ventral hernia Past Surgical History: Procedure Laterality Date ABDOMINAL SURGERY ABDOMINAL SURGERY ABDOMINAL SURGERY CYSTOCELE REPAIR OTHER SURGICAL HISTORY 2007 surgery disease: Bowel obstruction OTHER SURGICAL HISTORY 2002 vagal nerve stimulation VENTRAL HERNIA REPAIR Family History Problem Relation Name Age of Onset Diabetes Mother Thyroid cancer Mother Hypertension Mother Diabetes Father Cancer Father Social History Tobacco Use Smoking status: Never Smokeless tobacco: Never Substance Use Topics Alcohol use: Not on file Allergies: Sodium hypochlorite, Other, Penicillins, and Clindamycin General: No fever or chills HEENT: No nasal congestion or runny nose Pulmonary: No shortness of breath or cough Cardiovascular: No chest pain or palpitations GI: No nausea or vomiting : No dysuria or hematuria Musculoskeletal: No new aches or pains or muscle weakness Infectious: no recurrent fevers or infections Dermatologic: No rashes or skin lesions Neurologic: No new headaches or dizziness Vitals: 07/01/24 1032 BP: 112/76 Pulse: 85 SpO2: 96% There is no height or weight on file to calculate BMI. Neurologic exam: General: Normal body habitus, cooperative, pleasant Mental status: Awake, alert to person, not place or time. Recent and remote memory MRDD Attention and concentration are normal. Fund of knowledge MRDD HEENT: NC/AT Cranial nerves: CN II: Visual matta full to confrontation. No loss of vision CN III, IV, : pupils equal round and reactive to light. Extraocular movements intact. No ptosis present. CN V: Facial sensation is normal. CN VII: Full and symmetric facial movement. CN VIII: Hearing is normal CN IX and X: Palate elevates symmetrically. CN XI: Shoulder shrug is normal bilaterally. CN XII: Tongue is midline without atrophy or fasciculation. Speech: Baseline dysarthria, repetitive language, few words Pronator drift: Negative bilateral upper extremity Coordination: Dysmetria finger to nose and rapid alternating movements Sensory: Sensation is intact to light, temperature and vibratory touch throughout four extremities. 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 Needs to have an occasional breakthrough event. They have been small and not overly problematic. His VNS is working well it is about a quarter full. We will need to keep an eye on that. He did havelab work performed and is relatively unremarkable. He has a slightly high alkaline phosphatase was monitored over time. Unclear why but for some reason his Keppra level has been tested and that is 40. His lacosamide level is 2.8, his phenobarb level is 13.4 and primidone is 12.4. It is not really necessary to have these levels tested. He is slightly anemic. He had a bowel Obstruction was in the hospital since our last visit but is now doing better They have not needed the Diastat but would like to see if he can get the nasal rescue medicine. . He is tolerating his meds He has memory loss and cognitive deficits with his MRDD that is stable . 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 He will continue on the current medicines as is. . Review and summary of old records: September 2022 normal glucose slightly elevated BUN at 29 creatinine 1.15 normal sodium potassium normalliver panel was normal, WBC slightly high at 14.9 but hemoglobin and hematocrit and platelets were normal, lipase normal lactic acid normal 06/2023 CMP slight variations, CBC with diff low RBC, H & H 10.6/31.1 . . . Plan Lab work was reviewed Continue the current medications VNS was interrogated and generators a quarter full we will monitor closely Call if he has any other new issues Try to have him exercise regularly if even just in the chair to prevent falls only swipe the battery once every 5 minues for a sz. He should have Diastat for a longer seizure only and Ativan for more of a cluster of seizures but this should not be both given in the same timeframe Continue current medications Vimpat 150 mg BID Lamictal 400 mg in the am, 600 mg at bedtime Keppra 1500 mg in the am, 2000 mg at bedtime Mysoline 250 mg in the am, 375 mg at bedtime monitor for more events. consider turning on the auto if warranted. This was discussed with the patient, all questions were answered and they agreed with the treatmentplan. The patient is to call with any worsening of the condition or new symptoms. VNS Readings: Output Current: 2.25 mA Signal Frequency: 25 Hz Pulse Width: Hz 250 Signal On Time: 60 sec Signal Off Time: 1.8 min Magnet Output Current: 2.5 Pulse Width: 500 On Time:60 sec # Magnet Usages: 89 Autostim : on/off Autostim Pulse Width: Autostim On Time: Lead Test: Battery Life: 03/08 full (11-25%) Model: Seriel #: Manufactured: Implant Date: Return to clinic: documented in this encounterHermann Area District [id number] History of Present illness Narrative* Luís Chino NP - 06/30/2024 12:36 PM EDTAssociated Problem(s): Moderate intellectual disability (CMS/HCC) Per caregiver Andrei pt is at baseline * Luís Chino NP - 06/30/2024 12:36 PM EDTAssociated Problem(s): SBO (small bowel obstruction) (CMS/HCC) Hx of these intermittently Spoke with dr dior about this case as well Has been referred to [facility] in the past, no surgical recommendations Cont with diet modifications * Luís Chino NP - 06/30/2024 12:35 PM EDTAssociated Problem(s): Chronic constipation Continue current meds * Luís Chino NP - 06/30/2024 12:35 PM EDTAssociated Problem(s): Seizure disorder (CMS/HCC) No seizures since discharge from hospital Follows with [facility] * Luís Chino NP - 06/30/2024 12:35 PM EDTAssociated Problem(s): Developmental delay Caregiver Andrei reports behavior is at baseline * GABRIELA JACOBS - 06/30/2024 11:30 AM EDT Images from the original note were not included. Amol Taylor is a 69 y.o. male presents with chief complaint of No chief complaint on file. HPI: Hospital fu for SBO: Kaia Recinos from 06/16/24-06/19/24 Hx of recurrent SBO, has NG placed a few days then sxs resolved See Discharge summary for HPI and hospital course Lives in [facility], geriatric care manager Andrei with him. Pt is developmental disabled and continues to repeat that he is ok, Andrei reports he does the same thing even when he has an obstruction, only difference is that he continues to vomit w SBO. Andrei reports no fever, diet is advanced to necture consistency, bowels are moving and he is voiding and acting like himself. SUBJECTIVE: MEDICATIONS: Current Outpatient Medications Medication Instructions Calcium Carb-Cholecalciferol (OYSTER CALCIUM/D3 PO) Oral carbamide peroxide (Debrox) 6.5 % otic solution 4 drops, Every 30 days cholecalciferol (VITAMIN D-3) 1,000 Units, Oral, Daily cyanocobalamin (VITAMIN B-12) 1,000 mcg, Daily diazePAM (DIASTAT ACUDIAL) 20 mg, Rectal, As needed, Prior to administration, review instruction sheet supplied with dose unit. Verify the ordered dose is set for administration. diazePAM, 20 MG Dose, (Valtoco 20 MG Dose) 2 x 10 MG/0.1ML liquid therapy pack 1 spray in each nostril once a day for intractable seizure. finasteride (PROSCAR) 5 mg, Oral, Daily hydrocortisone 2.5 % cream 1 application , Topical, Every 12 hours ibuprofen 400 mg, Oral, Every 6 hours PRN lacosamide (VIMPAT) 150 mg, Oral, 2 times daily lamoTRIgine (LAMICTAL) 200 mg, Oral, 2 times daily latanoprost (Xalatan) 0.005 % ophthalmic solution 1 drop, Nightly levETIRAcetam (KEPPRA) 1,500 mg, Oral, Daily levETIRAcetam (KEPPRA) 500 mg, Oral, Daily levETIRAcetam (KEPPRA) 750 mg, 2 times daily linaCLOtide (LINZESS) 145 mcg, Oral, Daily before breakfast, Do not crush or chew. LORazepam (ATIVAN) 0.5 mg, Oral, Every 8 hours PRN magnesium oxide (MAG-OX) 400 mg, Daily meclizine (ANTIVERT) 25 mg, Oral, Every 8 hours PRN metoclopramide (REGLAN) 5 mg, Oral, 3 times daily olopatadine (Pataday) 0.2 % ophthalmic solution 1 drop, Ophthalmic, Daily ondansetron ODT (ZOFRAN-ODT) 4 mg, Oral, Every 6 hours PRN oxybutynin XL (DITROPAN-XL) 10 mg, Oral, Daily, Do not crush, chew, or split. pantoprazole (PROTONIX) 40 mg, Daily before breakfast polyethylene glycol (PEG) 3350 (MIRALAX) 17 g, Oral, As needed primidone (MYSOLINE) 500 mg, Oral, Daily Senexon-S 8.6-50 MG tablet TAMSULOSIN HCL PO 0.4 mg, Oral, 2 times daily ALLERGIES: Allergies Allergen Reactions Sodium Hypochlorite Hives and Itching Other Penicillins Hives and Swelling Clindamycin Rash REVIEW OF SYMPTOMS: Review of Systems Constitutional: Negative for activity change, appetite change and unexpected weight change. HENT: Negative for ear pain, nosebleeds, sneezing, trouble swallowing and voice change. Eyes: Negative for pain, discharge and visual disturbance. Respiratory: Negative for apnea, chest tightness and wheezing. Cardiovascular: Negative for leg swelling. Gastrointestinal: Negative for abdominal distention, blood in stool, constipation and diarrhea. Genitourinary: Negative for decreased urine volume, difficulty urinating, dysuria and hematuria. Skin: Negative for color change. Neurological: Negative for dizziness, tremors and seizures. Psychiatric/Behavioral: Negative for agitation, behavioral problems, decreased concentration, hallucinations, self-injury and suicidal ideas. The patient is not nervous/anxious. Hematological: Negative for adenopathy. Does not bruise/bleed easily. Endocrine: Negative for cold intolerance, heat intolerance, polydipsia and polyuria. Allergic/Immunologic: Negative for environmental allergies and food allergies. PAST MEDICAL HISTORY Past Medical History: Diagnosis Date At moderate risk for fall BPH without urinary obstruction Chronic constipation Dyslipidemia (CMS/HCC) Glaucoma, unspecified glaucoma type, unspecified laterality (CMS/HCC) Hearing loss, unspecified hearing loss type, unspecified laterality Left ankle joint deformity Left arm weakness Macrocytic anemia Mild eczema Moderate developmental delay Osteoarthritis, unspecified osteoarthritis type, unspecified site Overactive bladder Overweight Partial small bowel obstruction (CMS/HCC) Seizure disorder (CMS/HCC) Unsteady gait Ventral hernia Past Surgical History: Procedure Laterality Date ABDOMINAL SURGERY ABDOMINAL SURGERY ABDOMINAL SURGERY CYSTOCELE REPAIR OTHER SURGICAL HISTORY 2007 surgery disease: Bowel obstruction OTHER SURGICAL HISTORY 2002 vagal nerve stimulation VENTRAL HERNIA REPAIR family history includes Cancer in his father; Diabetes in his father and mother; Hypertension in his mother; Thyroid cancer in his mother. OBJECTIVE: Visit Vitals BP 118/82 (BP Location: Left arm, Patient Position: Sitting, BP Cuff Size: Adult long) Pulse 77 Temp 98.5 F (Temporal) Resp 20 Wt 212 lb Comment: pt stood up using 1 assist w/ gaitbelt and walker. pt went from sitting positionto standing for wheelchair SpO2 97% Smoking Status Never Physical Exam Vitals and nursing note reviewed. Constitutional: Appearance: Normal appearance. He is obese. HENT: Head: Normocephalic. Right Ear: External ear normal. Left Ear: External ear normal. Nose: Nose normal. Mouth/Throat: Mouth: Mucous membranes are moist. Pharynx: Oropharynx is clear. No posterior oropharyngeal erythema. Eyes: Extraocular Movements: Extraocular movements intact. Conjunctiva/sclera: Conjunctivae normal. Cardiovascular: Rate and Rhythm: Normal rate and regular rhythm. Pulses: Normal pulses. Heart sounds: Normal heart sounds. Pulmonary: Effort: Pulmonary effort is normal. Breath sounds: Normal breath sounds. No wheezing or rhonchi. Abdominal: General: Bowel sounds are normal. Palpations: Abdomen is soft. There is no mass. Tenderness: There is no abdominal tenderness. There is no guarding or rebound. Musculoskeletal: Cervical back: Neck supple. Right lower leg: Edema present. Left lower leg: Edema present. Comments: Trace bilat Lymphadenopathy: Cervical: No cervical adenopathy. Skin: General: Skin is warm and dry. Capillary Refill: Capillary refill takes 2 to 3 seconds. Neurological: General: No focal deficit present. Mental Status: He is alert. Psychiatric: Mood and Affect: Mood normal. Behavior: Behavior normal. Thought Content: Thought content normal. Judgment: Judgment normal. ASSESSMENT AND PLAN: Follow up for Next scheduled follow-up. Problem List Items Addressed This Visit Chronic constipation Continue current meds Moderate intellectual disability (CMS/HCC) Per caregiver Andrei, pt is at baseline Seizure disorder (CMS/HCC) - Primary No seizures since discharge from hospital Follows with [facility] Developmental delay Caregiver Andrei reports behavior is at baseline SBO (small bowel obstruction) (CMS/HCC) Hx of these intermittently Spoke with dr dior about this case as well Has been referred to [facility] in the past, no surgical recommendations Cont with diet modifications Sees Dr. Dior Last visit: 04/14/24 [facility] admission: 06/16 Small bowel obstruction Discharged: 06/19 Pt is currently is nectar thick liquids Discontinued the honey thick after being discharged from the hospital Pt is still continuing puree diet No complaints of pain Caregiver (Andrei) came with pt today. Caregiver states that since NG tube was removed pt has had some throat irritation and secretions Pt does have wet phlegm cough documented in this encounterHermann Area District [id number] Instructions* Patient Instructions* Luís Chino NP - 06/30/2024 11:30 AM EDT No changes with meds, etc Keep follow up with dr dior as scheduled documented in this encounterHermann Area District [id number] History of Present illness Narrative* Marilu Mota RN - 06/19/2024 3:20 PM EDT This RN call placed to [facility] regarding middline. Updated that JOYCE incorrect and patient has midline not PICC, nursing staff (Victorina) can pull midline, nurse declined any further questions or concerns at this time. Nursing smoke control supervisor aware. * Marilu Mota RN - 06/19/2024 3:09 PM EDT This RN attempted to call report to Toni Camejo at facility, states he just got there and is doing well. Declined wanting a full report. declined any needs, questions or concerns. Encouraged to call with any questions. * Marilu Mota RN - 06/19/2024 2:20 PM EDT Patient discharged to [facility], alert to person, baseline for this visit. Patient respirations easy and nonlabored. No acute distress noted. This RN gave report to EMS transport at this time. Patient discharged with all belongings. * Dorota Woodson APRN - CNP - 06/19/2024 1:32 PM EDT Physician Progress Note PATIENT: AMOL TAYLOR CSN #: [id number] : 1955 ADMIT DATE: 06/16/2024 9:36 AM DISCH DATE: RESPONDING PROVIDER #: DOROTA SALTER APRN - OTONIEL QUERY TEXT: BPH is documented in the Progress Notes by Melany Rios RCP on 06/16/2024. Please specify the associated urinary conditions: The clinical indicators include: BPH , 69Yrs M - BPH (benign prostatic hyperplasia) (Progress Notes by Melany Rios RCP on 06/16/2024) - FINDINGS: Pelvis: The bladder is partially distended with urine. (H&P by Yana Cornejo MD at 06/16/2024 ) -tamsulosin (FLOMAX) 0.4 MG capsule Thank you Chelsy Gonzalez [facility] Options provided: -- BPH with partial/complete urinary obstruction -- BPH with urinary retention without obstruction -- Other - I will add my own diagnosis -- Disagree - Not applicable / Not valid -- Disagree - Clinically unable to determine / Unknown -- Refer to Clinical Documentation Reviewer PROVIDER RESPONSE TEXT: This patient has BPH with urinary retention without obstruction. Query created by: Chelsy Gonzalez on 06/19/2024 10:59 AM Electronically signed by: DOROTA Espinoza CNP 06/19/2024 1:31 PM * Julia Mcelroy - 06/19/2024 10:06 AM EDT Comprehensive Nutrition Assessment Type and Reason for Visit: Reassess Nutrition Recommendations/Plan: Monitor tolerance of pureed and moderately thick liquids diet. Malnutrition Assessment: Malnutrition Status: At risk for malnutrition (06/17/24 0731) Context: Acute Illness Findings of the 6 clinical characteristics of malnutrition: Energy Intake: Mild decrease in energy intake Weight Loss: No weight loss Body Fat Loss: No body fat loss Muscle Mass Loss: No muscle mass loss Fluid Accumulation: Mild Extremities Zoning Engineer Strength: Not Performed Nutrition Assessment: Predicted inadequate energy intake r/t altered GI structure aeb NPO/clear liquid status. Pt tolerated clear liquid diet for breakfast. Diet order was changed to pureed and moderately thick liquids. Nutrition Related Findings: active bowel sounds, non pitting RLE and LLE edema Wound Type: None Current Nutrition Intake & Therapies: Average Meal Intake: Unable to assess (Clear liquid diet ordered) Average Supplements Intake: None Ordered ADULT DIET; Dysphagia - Pureed; Moderately Thick (Honey); Patient needs pureed diet when advanced to solid foods Anthropometric Measures: Height: 177.8 cm (5' 10 ) [place] Body Weight (IBW): 166 lbs (75 kg) Admission Body Weight: 96.3 kg (212 lb 4.9 oz) Current Body Weight: 93.4 kg (205 lb 14.6 oz), 124 % IBW. Weight Source: Bed scale Current BMI (kg/m2): 29.5 Usual Body Weight: 79.4 kg (175 lb 0.7 oz) % Weight Change (Calculated): 17.6 Weight Adjustment For: No Adjustment BMI Categories: Overweight (BMI 25.0-29.9) Estimated Daily Nutrient Needs: Energy Requirements Based On: Kcal/kg Weight Used for Energy Requirements: Current Energy (kcal/day): 7472-1573 (25-28 kcal/kg) Weight Used for Protein Requirements: [place] Protein (g/day): 75-90 (1.0-1.2g/kg) Method Used for Fluid Requirements: 1 ml/kcal Fluid (ml/day): 2827-7042 Nutrition Diagnosis: Predicted inadequate energy intake related to Altered GI structure as evidenced by NPO or clear liquid status due to medical condition Nutrition Interventions: Food and/or Nutrient Delivery: Continue Current Diet Nutrition Education/Counseling: Education/Counseling not appropriate Coordination of Nutrition Care: Continue to monitor while inpatient Plan of Care discussed with: pt Goals: Goals: by next RD assessment, Maintain adequate nutrition status Type of Goal: New goal Previous Goal Met: New Goal Nutrition Monitoring and Evaluation: Behavioral-Environmental Outcomes: Knowledge or Skill Physical Signs/Symptoms Outcomes: Biochemical Data, GI Status, Nutrition Focused Physical Findings,Fluid Status or Edema Discharge Planning: Continue current diet Julia Mcelroy Contact: [phone] Cosigned [address], LD at 06/19/2024 10:54 AM EDT * Marilu Mota RN - 06/19/2024 10:00 AM EDT RN in to assess patient. Patient resting in bed with eyes closed, easily awakens to verbal stimuli,Alert to person only, answers simple questions appropriately, Respirations Easy and Nonlabored. Lung sounds course throughout. Patient denies pain. Patient on tele. Assessment and vital signs completed as charted. Call light within reach, declines needs or concerns at this time. Care ongoing. * Ilana Clayton I, - 06/19/2024 9:07 AM EDT GENERAL SURGERY PROGRESS NOTE- inpatient PATIENT NAME: Amol Taylor DATE: 06/19/2024 SUBJECTIVE: Patient tolerated clear liquids., no vomiting overnight. Chart reviewed OBJECTIVE: VITALS: BP 130/72 Pulse 67 Temp 97 F (36.1 C) (Temporal) Resp 20 Ht 1.778 m (5' 10 ) Wt 93.6 kg (206 lb 4.8 oz) SpO2 96% BMI 29.60 kg/m height is 1.778 m (5' 10 ) and weight is 93.6 kg (206 lb 4.8 oz). His temporal temperature is 97 F (36.1 C). His blood pressure is 130/72 and his pulse is 67. His respiration is 20 and oxygen saturation is 96%. INTAKE/OUTPUT: I/O last 3 completed shifts: In: 5458.1 [P.O.:1200; I.V.:4158.1; IV Piggyback:100] Out: 350 [Emesis/NG output:350] No intake/output data recorded. CONSTITUTIONAL: awake and alert LUNGS: clear to auscultation HEART:regular rate ABDOMEN: normal bowel sounds, soft, non-distended, non-tender EXTREMITIES: no c/c/e Data: CBC: Recent Labs 06/17/2452406/18/24514 WBC 12.2* 9.7 HGB 13.5 11.9* HCT 42.2 36.3* PLT 214 184 BMP: Recent Labs 06/17/2452406/18/24514 NA 141 144 K 4.1 3.8 CL 112* 110* CO2 22 22 BUN 24* 20 CREATININE 1.0 0.8 GLUCOSE 97 83 Hepatic: Recent Labs 06/17/24 0525 06/18/24 0515 AST 20 15 ALT 15 16 BILITOT 0.4 0.5 ALKPHOS 173* 151* ASSESSMENT & PLAN: Recurrent sbo resolved. Advance diet as tolerated- already done by primary. No surgical plans at this time. Surgery will sign off- please call as needed Dr. Clayton * Dorota Woodson APRN - OTONIEL - 06/19/2024 9:05 AM EDT Progress Note SUBJECTIVE: Patient seen for f/u of Small bowel obstruction (HCC). He resting in bed no distress. Well. No complaints or distress. No reports of vomiting per nursing ROS: Constitutional: negative for fevers, and negative [...] otherwise stated in HPI OBJECTIVE: Vitals: Vitals: 06/19/24 0723 BP: Pulse: Resp: Temp: SpO2: 96% Weight - Scale: 93.6 kg (206 lb 4.8 oz) Height: 177.8 cm (5' 10 ) Weight Wt Readings from Last 3 Encounters: 06/19/24 93.6 kg (206 lb 4.8 oz) 04/23/24 89.6 kg (197 lb 8 oz) 02/07/24 89.6 kg (197 lb 8 oz) Body mass index is 29.6 kg/m . 24HR INTAKE/OUTPUT: Intake/Output Summary (Last 24 hours) at 06/19/2024 0905 Last data filed at 06/19/2024 0502 Gross per 24 hour Intake 3621.66 ml Output 100 ml Net 3521.66 ml Exam: GEN: Awake, alert and pleasant [...] Diagnostic Data: Complete Blood Count: Recent Labs 06/16/24 1004 06/17/24 0506/18/24 0515 WBC 14.2* 12.2* 9.7 RBC 4.75 4.21 3.67* HGB 15.1 13.5 11.9* HCT 46.4 42.2 36.3* MCV 97.7 100.2 98.9 MCH 31.8 32.1 32.4 MCHC 32.5 32.0 32.8 RDW 12.6 12.8 12.6 PLT 271 214 184 MPV 8.9 9.1 9.1 Last 3 Blood Glucose: Recent Labs 06/16/24 1004 06/17/24 0525 06/18/24 0515 GLUCOSE 113* 97 83 Comprehensive Metabolic Profile: Recent Labs 06/16/24 1004 06/17/24 0525 06/18/24 0515 NA 141 141 144 K 4.0 4.1 3.8 CL 103 112* 110* CO2 26 22 22 BUN 25* 24* 20 CREATININE 1.0 1.0 0.8 GLUCOSE 113* 97 83 CALCIUM 9.7 8.9 8.6 BILITOT 0.3 0.4 0.5 ALKPHOS 209* 173* 151* AST 19 20 15 ALT 16 15 16 Urinalysis: Lab Results Component Value Date/Time NITRU POSITIVE 06/16/2024 03:50 PM COLORU Yellow 06/16/2024 03:50 PM PHUR 7.0 06/16/2024 03:50 PM PHUR 6.0 06/11/2023 03:28 PM WBCUA 0 TO 2 06/16/2024 03:50 PM RBCUA 5 TO 10 06/16/2024 03:50 PM MUCUS 1+ 06/16/2024 03:50 PM TRICHOMONAS NOT REPORTED 12/05/2018 06:15 AM YEAST NOT REPORTED 12/05/2018 06:15 AM BACTERIA 1+ 06/16/2024 03:50 PM LEUKOCYTESUR NEGATIVE 06/16/2024 03:50 PM UROBILINOGEN Normal 06/16/2024 03:50 PM BILIRUBINUR NEGATIVE 06/16/2024 03:50 PM GLUCOSEU NEGATIVE 06/16/2024 03:50 PM GLUCOSEU NEGATIVE 10/31/2010 12:33 PM KETUA NEGATIVE 06/16/2024 03:50 PM AMORPHOUS 2+ 06/12/2022 11:10 AM Lactic Acid: Lab Results Component Value Date/Time LACTA 0.6 06/12/2023 05:10 AM LACTA 1.3 09/02/2022 07:35 PM LACTA 1.3 06/21/2022 12:30 PM Troponin: Latest Reference Range & Units 06/16/24 16:45 06/16/24 19:20 Troponin, High Sensitivity 0 - 22 ng/L 12 12 Latest Reference Range & Units 05/02/23 19:47 06/11/23 10:15 Troponin, High Sensitivity 0 - 22 ng/L 12 17 Radiology/Imaging: XR ABDOMEN (KUB) (SINGLE AP VIEW) Final Result Nonobstructive bowel gas pattern. XR CHEST (SINGLE VIEW FRONTAL) Final Result No significant interval change. XR ABDOMEN FOR NG/OG/NE TUBE PLACEMENT Final Result Nasogastric tube tip is in the stomach. CT ABDOMEN PELVIS W IV CONTRAST Additional Contrast? None Final Result 1. Small bowel obstruction with a transition point along the right paramidline of the anterior abdominal wall. 2. Peripherally calcified left-sided renal lesion measuring 4.1 x 1.6 x 3.5 cm. This may represent sequela of post treatment change. 3. Colonic diverticulosis. ASSESSMENT / PLAN: MEDICAL DECISION MAKING: Primary Problem(s): Small bowel obstruction (HCC) Differential diagnoses: SBO, ileus Condition is an acute or chronic illness or injury that poses threat to life or bodily function Treatment plan: Appreciate Dr. Sawant--notes reviewed Up to chair and ambulate MARCELLA Imaging: Daily KUB Medications: Stop morphine prn pain Stop IV fluids Medication Monitoring / High Risk Medications: Parenteral administration of controlled substance(s) Abnormal ECG with significant ST changes but normal initial troponin Treatment plan: Appreciate cardiology-notes reviewed Serial ECG's Trend troponin Medications: Resume Mag-Ox Seizure disorder Condition is a chronic stable condition Treatment plan: Seizure / fall precautions in place Medications: Resume oral Keppra, Lamictal, Vimpat Nutrition status: at risk for malnutrition Dermatology Nurse Practitioner consult initiated I/O Daily weight Monitor Daily intake Nutritional Supplements as tolerated MALNUTRITION ASSESSMENT AND PLAN The following was documented by the Dietitian: Malnutrition Assessment Context of Malnutrition: Acute Illness (06/17/24730) Acute Illness - Energy Intake : Mild decrease in energy intake (06/17/24730) Acute Illness - Weight Loss : No weight loss (06/17/24730) Acute Illness - Body Fat Loss: No body fat loss (06/17/24730) Acute Illness - Muscle Mass Loss: No muscle mass loss (06/17/24730) Acute Illness - Fluid Accumulation : Mild (06/17/24730) Acute Illness - Fluid Accumulation Location: Extremities (06/17/24730) Acute Illness - Zoning Engineer Strength: Not Performed (06/17/24730) Acute Illness - Malnutrition Score: 1 (06/17/24730) Malnutrition Status: At risk for malnutrition (06/17/24730) I agree with the dietitian's malnutrition assessment. Medical Nutrition Therapy: N.p.o. Hospital Prophylaxis: DVT: Lovenox Stress Ulcer: H2 Klarissa Disposition: Shared decision making: MRDD no family at bedside Social determinants of health that may impact management: Resides in [facility] Code status: Full Code Disposition: Discharge plan is home [facility] Advanced Care Planning documentation: [x] I have [...] PERFORMANCE] Dorota Woodson APRN - OTONIEL , JOSEPH KLINE-C Hospitalist Medicine 06/19/2024, 9:05 AM Cosigned by Yana Cornejo MD at 06/19/2024 12:43 PM EDT Associated attestation - Yana Cornejo MD - 06/19/2024 12:43 PM EDT Yana Cornejo M.D. Internal Medicine PA/PRODUCTION WOOD CRAFTSMAN Attestation Note Patient: Amol Taylor Date of Admission: 06/16/2024 9:36 AM Date of Evaluation: 06/19/2024 I personally evaluated and examined the patient [id number] in conjunction with the PA/PRODUCTION WOOD CRAFTSMAN and agree with the management and dispostition of the patient. Please see the PA/PRODUCTION WOOD CRAFTSMAN's note for full details.My gee findings are: SUBJECTIVE: Aoml Taylor is a 69 y.o. male who was seen today along with Dorota Salter CNP for follow up of Small bowel obstruction (HCC). He states he's feeling fine today. He denies abd pain. NGT was DC'd yesterday and he's tolerating diet so far. Per nursing staff no new issues overnight. OBJECTIVE: Vitals: Temp: 97.4 F (36.3 C) BP: (!) 143/74 Respirations: 20 Pulse: 75 SpO2: 94 % Weight Wt Readings from Last 3 Encounters: 06/19/24 93.6 kg (206 lb 4.8 oz) 04/23/24 89.6 kg (197 lb 8 oz) 02/07/24 89.6 kg (197 lb 8 oz) Body mass index is 29.6 kg/m . 24HR INTAKE/OUTPUT: Intake/Output Summary (Last 24 hours) at 06/19/2024 1240 Last data filed at 06/19/2024 1021 Gross per 24 hour Intake 2815.31 ml Output -- Net 2815.31 ml Exam: GEN: Awake and alert. No acute distress . EYES: EOMI, pupils equal NECK: Supple. No [...] lesions. DATA: Complete Blood Count: Recent Labs 06/17/24 0525 06/18/24 0515 WBC 12.2* 9.7 RBC 4.21 3.67* HGB 13.5 11.9* HCT 42.2 36.3* MCV 100.2 98.9 RDW 12.8 12.6 PLT 214 184 Recent Labs 06/17/24 0525 06/18/24 0515 NEUTROABS 8.72* 7.14 LYMPHOPCT 17* 16* LYMPHSABS 2.06 1.57 MONOPCT 9 8 BASOPCT 0 0 IMMGRAN 0 0 CMP: Recent Labs 06/17/24 0525 06/18/24 0515 NA 141 144 K 4.1 3.8 CL 112* 110* CO2 22 22 BUN 24* 20 CREATININE 1.0 0.8 GLUCOSE 97 83 CALCIUM 8.9 8.6 BILITOT 0.4 0.5 ALKPHOS 173* 151* AST 20 15 ALT 15 16 UA: Lab Results Component Value Date COLORU Yellow 06/16/2024 WBCUA 0 TO 2 06/16/2024 RBCUA 5 TO 10 06/16/2024 LEUKOCYTESUR NEGATIVE 06/16/2024 GLUCOSEU NEGATIVE 06/16/2024 KETUA NEGATIVE 06/16/2024 PROTEINU 1+ (A) 06/16/2024 HGBUR 1+ (A) 06/16/2024 CASTUA NOT REPORTED 12/05/2018 BACTERIA 1+ (A) 06/16/2024 YEAST NOT REPORTED 12/05/2018 Lactic Acid: No results for input(s): LACTA , LACTSEPSIS in the last 72 hours. High Sensitivity Troponin: Recent Labs 06/16/24 1645 06/16/24 1920 TROPHS 12 12 Microbiology / Cultures: Results Procedure Component Value Units Date/Time Culture, Blood 1 [[id number]] Collected: 06/16/24 1004 Order Status: Completed Specimen: Blood Updated: 06/19/24 0647 Specimen Description .BLOOD Special Requests 10ML RT HAND Culture NO GROWTH 3 DAYS Imaging Data: XR ABDOMEN (KUB) (SINGLE AP VIEW) Result Date: 06/17/2024 EXAMINATION: ONE SUPINE XRAY VIEW(S) OF THE ABDOMEN 06/17/2024 7:21 am COMPARISON: CT abdomen [id number]/2024 HISTORY: ORDERING SYSTEM PROVIDED HISTORY: sbo TECHNOLOGIST PROVIDED HISTORY: sbo FINDINGS: Enteric tube projects past the GE junction with tip projecting over the gastric body. No significant small bowel dilatation. Gas is seen throughout the colon and rectum. Nonobstructive bowel gas pattern. XR CHEST (SINGLE VIEW FRONTAL) Result Date: 06/16/2024 EXAMINATION: ONE XRAY VIEW OF THE CHEST 06/16/2024 5:23 pm COMPARISON: 04/19/2024, 02/03/2024 HISTORY: ORDERING SYSTEM PROVIDED HISTORY: coarse lung sounds TECHNOLOGIST PROVIDED HISTORY: coarse lung sounds FINDINGS: The enteric tube courses off the field of view in the upper abdomen.The cardiac and m ediastinal contours appear unchanged. Shallow inflation. Streaky opacities in the lung bases again noted. No new airspace disease identified in the interval. No evidence for pneumothorax. Large amount of bowel gas in the left upper quadrant again demonstrated. Left vagal neurostimulator in place. No significant interval change. XR ABDOMEN FOR NG/OG/NE TUBE PLACEMENT Result Date: 06/16/2024 EXAMINATION: ONE SUPINE XRAY VIEW(S) OF THE ABDOMEN 06/16/2024 1:56 pm COMPARISON: CT 06/16/2024 HISTORY: ORDERING SYSTEM PROVIDED HISTORY: Confirmation of course of NG/OG/NE tube and location of tip of tube TECHNOLOGIST PROVIDED HISTORY: Confirmation of course of NG/OG/NE tube and location of tip of tube Portable?->Yes FINDINGS: Nasogastric tube tip appears to be in the dilated stomach within the left upper abdomen. There are gas-filled mildly dilated small bowel loops in the visualized mid abdomen. Generator pack in the left chest wall. Nasogastric tube tip is in the stomach. CT ABDOMEN PELVIS W IV CONTRAST Additional Contrast? None Result Date: 06/16/2024 EXAMINATION: CT OF THE ABDOMEN AND PELVIS WITH CONTRAST 06/16/2024 11:39 am TECHNIQUE: CT of the abdomen and pelvis was performed with the administration of intravenous contrast. Multiplanar reformatted images are provided for review. Automated exposure control, iterative reconstruction, and/or weight based adjustment of the mA/kV was utilized to reduce the radiation dose to as low as reasonably achievable. COMPARISON: 04/19/2024, 02/02/2024. HISTORY: ORDERING SYSTEM PROVIDED HISTORY: Bowel obstruction TECHNOLOGIST PROVIDED HISTORY: Bowel obstruction Decision Support Exception - unselect if not a suspected or confirmed emergency medical condition->Emergency Medical Condition (MA) FINDINGS: Lower Chest: The heart size is normal. Coronary artery vascular calcifications are noted. There iselevation of the left hemidiaphragm with asymmetric atelectasis in the left lung base. There is no pleural effusion. Organs: The liver, gallbladder, adrenal glands, pancreas, and spleen are unremarkable. There is a peripherally calcified left-sided renal lesion measuring 4.1 x 1.6 x 3.5 cm. This may represent sequela of post treatment change. There is no hydronephrosis. GI/Bowel: There is marked distension of the stomach. There is a small bowel obstruction with a transition point along the right paramidline of the anterior abdominal wall, axial image 139. The distal small bowel loops are decompressed. There are several scattered colonic diverticula. The appendix is normal. Pelvis: The bladder is partially distended with urine. The prostate and seminal vesicles are unremarkable. No inguinal or pelvic sidewall adenopathy. Peritoneum/Retroperitoneum: Atherosclerotic plaque is noted in the aorta and its branch vessels. There is no retroperitoneal adenopathy. Bones/Soft Tissues: There are no areas of abnormal soft tissue swelling. Degenerative changes are noted in the spine. Diffuse idiopathic skeletal hyperostosis. There is no fracture. 1. Small bowel obstruction with a transition point along the right paramidline of the anterior abdominal wall. 2. Peripherally calcified left-sided renal lesion measuring 4.1 x 1.6 x 3.5 cm. This mayrepresent sequela of post treatment change. 3. Colonic diverticulosis. ASSESSMENT: Principal Problem: Small bowel obstruction (HCC) Active Problems: Abnormal ECG Sinus tachycardia S/P placement of VNS (vagus nerve stimulation) device Seizure disorder (HCC) MR (mental retardation), severe Resolved Problems: * No resolved hospital problems. * PLAN: I agree with the assessment, plan and medical decision making documentation as outlined by APC: Condition is improving Treatment plan: Cardiology consult appreciated - discussed with Dr. Modi Gen Surg consult appreciated - Dr. Sawant's notes reviewed Tolerated NGT clamp trial yesterday and NGT DC'd Advance diet as tolerated Imaging: No further imaging Labs: troponin negative x 2 Daily CBC with diff, BMP ordered Medications: DC Morphine prn Continue IV Keppra for seizure prevention Disposition: Discharge plan is pending SHARED [facility] VISIT, PHYSICIAN ATTESTATION: [id number] I personally performed a substantive part of the MDM during the patient's visit. I personally evaluated and examined the patient. I personally made or approved the documented management plan and acknowledge its risk of complications. Test interpretation: My independent EKG interpretation: significant ST segment changes on initial ECGs which improved after repeat My independent imaging interpretation: CT abd shows dilated bowel loops consistent with SBO . Repeat abd xray today shows air getting through to colon Management and/or test interpretation discussed with OTONIEL Zuñiga MD , M.D. 06/19/2024 12:40 PM * Marilu Mota RN - 06/19/2024 6:30 AM EDT Report received from [place], checked in bedside with patient who is resting in bed witheyes closed. Easy nonlabored respirations noted. No acute distress noted. Care ongoing. * Max Esquivel GN - 06/18/2024 7:54 PM EDT Patient resting comfortably at this time in bed. Patient denies any pain, numbness, or tingling. Nosigns of respiratory distress noted. Patient denies SOB or chest pain. Patient denies any abdominalpain, nausea, or vomiting and tolerating NG tube removal well. Oriented to person only, able to follow commands. Patient denies any concerns at this time. Personal items and call light within reach, bed locked, bed alarm on. * Melany Rios RCP - 06/18/2024 5:31 PM EDT RESPIRATORY ASSESSMENT PROTOCOL Patient Name: Amol Laurent [facility] Room#: [id number]/[id number] : 1955 Admitting diagnosis: Small bowel obstruction (HCC) [K56.609] SBO (small bowel obstruction) (HCC) [K56.609] Medical History: Past Medical History: Diagnosis Date Arthritis BPH (benign prostatic hyperplasia) Dysphagia GERD (gastroesophageal reflux disease) Hearing loss HLD (hyperlipidemia) Insomnia MR (mental retardation) Periorbital cellulitis SBO (small bowel obstruction) (HCC) Seizures (HCC) Epilepsy Ventral hernia Vitamin D deficiency PATIENT ASSESSMENT LABORATORY DATA Hematology: Lab Results Component Value Date/Time WBC 9.7 06/18/2024 05:15 AM RBC 3.67 06/18/2024 05:15 AM RBC 3.43 10/31/2010 11:48 AM HGB 11.9 06/18/2024 05:15 AM HCT 36.3 06/18/2024 05:15 AM PLT 184 06/18/2024 05:15 AM PLT 206 10/31/2010 11:48 AM Chemistry: No results found for: PHART , SWO1UMS , PO2ART , J7VPSULB , DFP8GSL , PBEA , NBEA VITALS Pulse: 81 Respirations: 22 BP: (!) 130/118 SpO2: 98 % O2 Device: None (Room air) Temp: 97.6 F (36.4 C) SKIN COLOR [x] Normal [] Pale [] Dusky [] Cyanotic RESPIRATORY PATTERN [] Normal [x] Dyspnea [] Piero-Fajardo [] Kussmaul [] Biots AMBULATORY [] Yes [x] No [x] With Assistance Patient Acuity 0 1 2 3 4 Score Level of Consciousness (LOC) [x] Alert & Oriented or Pt normal LOC [] Confused;follows directions [] Confused & uncooper-ative [] Obtunded [] Comatose 0 Respiratory Rate (RR) [] Reg. rate & pattern. 12 - 20 bpm [x] Increased RR. Greater than 20 bpm [] SOB w/ exertion or RR greater than 24 bpm [] Access- ory muscle use at rest. Abn. resp. [] SOB at rest. 1 Bilateral Breath Sounds (BBS) [] Clear [] Diminish-ed bases [] Diminish-ed t/o, or rales [x] Sporadic, scattered wheezes or rhonchi [] Persistentwheezes and, or absent BBS 3 Cough [x] Strong, effective, & non-prod. [] Effective & prod. Less than 25 ml (2 TBSP) over past 24 hrs [] Ineffective & non-prod to less than 25 ML over past 24 hrs [] Ineffective and, or greater than 25 ml sputum prod. past 24 hrs. [] Nonspon- taneous; Requires suctioning 0 Pulmonary History (PULM HX) [x] No smoking and no chronic pulmonary history [] Former smoker. Quit over 12 mos. ago [] Current smoker or quit w/ in 12 mos [] Pulm. History and, or 20 pk/yr smoking hx [] Admitted w/ acute pulm. dx and, or has been admitted w/ pulm. dx 2 or more times over past 12 mos 0 Surgical History this Admit (SURG HX) [x] No surgery [] General surgery [] Lower abdominal [] Thoracic or upper abdominal [] Thoracic w/ pulm. disease 0 Chest X-Ray (CXR)/CT Scan [] Clear or not applicable [] Not available [] Atelectasis or pleural effusions [] Localized infiltrate or pulm. edema [x] Con-solidated Infiltrates, bilateral, or in more than 1 lobe 4 TOTAL ACUITY: 8 CARE PLAN If Acuity Level is 2, 3, or 4 in any of the following: [x] BILATERAL BREATH SOUNDS (BBS) [] PULMONARY HISTORY (PULM HX) [] Respiratory Rate (RR) Goal: Improve respiratory functions in patients with airway disease and decrease WOB [x] AEROSOL PROTOCOL Total Acuity: 14-28 [] Secondary Assessment in 24 hrs Total Acuity: 9-13 [] Secondary Assessment in 24 hrs Total Acuity: 4-8 [x] Secondary Assessment in 24 hrs Total Acuity: 0-3 [] Secondary Assessment in 48 hrs HHN AEROSOL THERAPY with [physician-ordered bronchodilator(s)] q 4 & Albuterol PRN q2 hrs. Breath-Actuated Neb if BBS Acuity = 4, and pt. can use MP. Notify physician if condition deteriorates. HHN AEROSOL THERAPY with [physician-ordered bronchodilator(s)] QID and Albuterol PRN q4 hrs. Breath-Actuated Neb if BBS Acuity = 4, and pt. can use MP. Notify physician if condition deteriorates. MDI THERAPY with 2 actuations of [physician-ordered bronchodilator(s)] via spacer TID Albuterol and PRN q4 hrs. If unable to utilize MDI: HHN [physician-ordered bronchodilator(s)] TID and Albuterol PRN q4 hrs. Notify physician if condition deteriorates. MDI THERAPY with [physician-ordered bronchodilator(s)] via spacer TID PRN. If unable to utilize MDI: HHN [physician-ordered bronchodilator(s)] TID PRN. Notify physician if condition deteriorates. If Acuity Level is 2, 3, or 4 in any of the following: [] COUGH [] SURGICAL HISTORY (SURG HX) [x] CHEST XRAY (CXR) Goal: Improvement in sputum mobilization in patients with ineffective airway clearance. Reverse atelectasis. [x] Bronchopulmonary Hygiene Protocol Total Acuity: 14-28 [] Secondary Assessment in 24 hrs Total Acuity: 9-13 [] Secondary Assessment in 24 hrs Total Acuity: 4-8 [x] Secondary Assessment in 24 hrs Total Acuity: 0-3 [] Secondary Assessment in 48 hrs METANEB QID with [physician-ordered bronchodilator(s)] if CXR Acuity = 4; otherwise: PD&P, Oscillatory Therapy, or Vest QID & PRN AND PEP QID & PRN NT Sxn PRN for ineffective cough METANEB QID with [physician-ordered bronchodilator(s)] if CXR Acuity = 4; otherwise: PD&P, Oscillatory Therapy or Vest QID & PRN AND PEP QID & PRN NT Sxn PRN for ineffective cough PD&P, Oscillatory Therapy, or Vest TID & PRN AND PEP TID & PRN Instruct patient to self-perform IS q1hr WA If Acuity Level is 2 or above in the following: [] PULMONARY HISTORY (PULM HX) Goal: Assist patient in quitting smoking to slow or stop the progression of lung disease. [] Smoking Cessation Protocol SMOKING CESSATION EDUCATION provided according to policy RT_201: (jeanette with an X) ____Yes ____ No ____ NA Smoking Cessation Booklet given: ____Yes ____No ____Patient Refused * Julia Mcelroy - 06/18/2024 1:37 PM EDT Comprehensive Nutrition Assessment Type and Reason for Visit: Reassess Nutrition Recommendations/Plan: Monitor clear liquid diet. Monitor diet progression and tolerance. Malnutrition Assessment: Malnutrition Status: At risk for malnutrition (06/17/24 0731) Context: Acute Illness Findings of the 6 clinical characteristics of malnutrition: Energy Intake: Mild decrease in energy intake Weight Loss: No weight loss Body Fat Loss: No body fat loss Muscle Mass Loss: No muscle mass loss Fluid Accumulation: Mild Extremities Zoning Engineer Strength: Not Performed Nutrition Assessment: Inadequate oral intake r/t altered GI function aeb NGT pulled starting a clear liquid diet order. Labs reviewed with a slight decrease in weight Nutrition Related Findings: active bowel sounds, non pitting RLE and LLE edema Wound Type: None Current Nutrition Intake & Therapies: Average Meal Intake: Unable to assess (Clear liquid diet ordered) Average Supplements Intake: None Ordered ADULT DIET; Clear Liquid; Moderately Thick (Honey); Patient needs pureed diet when advanced to solid foods Anthropometric Measures: Height: 177.8 cm (5' 10 ) [place] Body Weight (IBW): 166 lbs (75 kg) Admission Body Weight: 96.3 kg (212 lb 4.9 oz) Current Body Weight: 93.4 kg (205 lb 14.6 oz), 124 % IBW. Weight Source: Bed scale Current BMI (kg/m2): 29.5 Usual Body Weight: 79.4 kg (175 lb 0.7 oz) % Weight Change (Calculated): 17.6 Weight Adjustment For: No Adjustment BMI Categories: Overweight (BMI 25.0-29.9) Hematology: Recent Labs 06/16/24 1004 06/17/24 0525 06/18/24 0515 WBC 14.2* 12.2* 9.7 HGB 15.1 13.5 11.9* HCT 46.4 42.2 36.3* Chemistry: Recent Labs 06/16/24 1004 06/17/24 0525 06/18/24 0515 NA 141 141 144 K 4.0 4.1 3.8 CL 103 112* 110* CO2 26 22 22 GLUCOSE 113* 97 83 BUN 25* 24* 20 CREATININE 1.0 1.0 0.8 CALCIUM 9.7 8.9 8.6 Recent Labs 06/16/24 1004 06/17/24 0525 06/18/24 0515 AST 19 20 15 ALT 16 15 16 ALKPHOS 209* 173* 151* BILITOT 0.3 0.4 0.5 LIPASE 45 -- -- Estimated Daily Nutrient Needs: Energy Requirements Based On: Kcal/kg Weight Used for Energy Requirements: Current Energy (kcal/day): 1253-3071 (25-28 kcal/kg) Weight Used for Protein Requirements: [place] Protein (g/day): 75-90 (1.0-1.2g/kg) Method Used for Fluid Requirements: 1 ml/kcal Fluid (ml/day): 4145-9998 Nutrition Diagnosis: Inadequate oral intake related to Altered GI structure as evidenced by NPO or clear liquid status due to medical condition Nutrition Interventions: Food and/or Nutrient Delivery: Start Oral Diet Nutrition Education/Counseling: Education/Counseling not appropriate Coordination of Nutrition Care: Continue to monitor while inpatient Plan of Care discussed with: pt Goals: Goals: by next RD assessment, Maintain adequate nutrition status Type of Goal: New goal Previous Goal Met: New Goal Nutrition Monitoring and Evaluation: Behavioral-Environmental Outcomes: Knowledge or Skill Physical Signs/Symptoms Outcomes: Biochemical Data, GI Status, Nutrition Focused Physical Findings,Fluid Status or Edema Discharge Planning: Continue current diet Julia Mcelroy Contact: [phone] Cosigned by Rinku Montalvo, RD, LD at 06/18/2024 1:52 PM EDT * Carol Harman RN - 06/18/2024 8:[address] Sawant at the bedside to see patient. He would like the NG tube clamped and to check residual after 4 hours. If residual is under 150 mL, NG can be removed and patient can be started on clear liquids. * Dorota Woodson APRN - CNP - 06/18/2024 8:41 AM EDT Progress Note SUBJECTIVE: Patient seen for f/u of Small bowel obstruction (HCC). He resting in bed no distress. NG draining brown liquid. No complaints . ROS: Constitutional: negative for fevers, and negative [...] otherwise stated in HPI OBJECTIVE: Vitals: Vitals: 06/18/24 0656 BP: (!) 144/78 Pulse: 73 Resp: 22 Temp: 97.3 F (36.3 C) SpO2: 95% Weight - Scale: 93.4 kg (205 lb 14.4 oz) Height: 177.8 cm (5' 10 ) Weight Wt Readings from Last 3 Encounters: 06/18/24 93.4 kg (205 lb 14.4 oz) 04/23/24 89.6 kg (197 lb 8 oz) 02/07/24 89.6 kg (197 lb 8 oz) Body mass index is 29.54 kg/m . 24HR INTAKE/OUTPUT: Intake/Output Summary (Last 24 hours) at 06/18/2024 0841 Last data filed at 06/18/2024 0459 Gross per 24 hour Intake 1836.44 ml Output 550 ml Net 1286.44 ml Exam: GEN: Awake, alert and oriented [...] Diagnostic Data: Complete Blood Count: Recent Labs 06/16/24 1004 06/17/24 0525 06/18/24 0515 WBC 14.2* 12.2* 9.7 RBC 4.75 4.21 3.67* HGB 15.1 13.5 11.9* HCT 46.4 42.2 36.3* MCV 97.7 100.2 98.9 MCH 31.8 32.1 32.4 MCHC 32.5 32.0 32.8 RDW 12.6 12.8 12.6 PLT 271 214 184 MPV 8.9 9.1 9.1 Last 3 Blood Glucose: Recent Labs 06/16/24 1004 06/17/24 0525 06/18/24 0515 GLUCOSE 113* 97 83 Comprehensive Metabolic Profile: Recent Labs 06/16/24 1004 06/17/24 0525 06/18/24 0515 NA 141 141 144 K 4.0 4.1 3.8 CL 103 112* 110* CO2 26 22 22 BUN 25* 24* 20 CREATININE 1.0 1.0 0.8 GLUCOSE 113* 97 83 CALCIUM 9.7 8.9 8.6 BILITOT 0.3 0.4 0.5 ALKPHOS 209* 173* 151* AST 19 20 15 ALT 16 15 16 Urinalysis: Lab Results Component Value Date/Time NITRU POSITIVE 06/16/2024 03:50 PM COLORU Yellow 06/16/2024 03:50 PM PHUR 7.0 06/16/2024 03:50 PM PHUR 6.0 06/11/2023 03:28 PM WBCUA 0 TO 2 06/16/2024 03:50 PM RBCUA 5 TO 10 06/16/2024 03:50 PM MUCUS 1+ 06/16/2024 03:50 PM TRICHOMONAS NOT REPORTED 12/05/2018 06:15 AM YEAST NOT REPORTED 12/05/2018 06:15 AM BACTERIA 1+ 06/16/2024 03:50 PM LEUKOCYTESUR NEGATIVE 06/16/2024 03:50 PM UROBILINOGEN Normal 06/16/2024 03:50 PM BILIRUBINUR NEGATIVE 06/16/2024 03:50 PM GLUCOSEU NEGATIVE 06/16/2024 03:50 PM GLUCOSEU NEGATIVE 10/31/2010 12:33 PM KETUA NEGATIVE 06/16/2024 03:50 PM AMORPHOUS 2+ 06/12/2022 11:10 AM Lactic Acid: Lab Results Component Value Date/Time LACTA 0.6 06/12/2023 05:10 AM LACTA 1.3 09/02/2022 07:35 PM LACTA 1.3 06/21/2022 12:30 PM Troponin: Latest Reference Range & Units 06/16/24 16:45 06/16/24 19:20 Troponin, High Sensitivity 0 - 22 ng/L 12 12 Latest Reference Range & Units 05/02/23 19:47 06/11/23 10:15 Troponin, High Sensitivity 0 - 22 ng/L 12 17 Radiology/Imaging: XR ABDOMEN (KUB) (SINGLE AP VIEW) Final Result Nonobstructive bowel gas pattern. XR CHEST (SINGLE VIEW FRONTAL) Final Result No significant interval change. XR ABDOMEN FOR NG/OG/NE TUBE PLACEMENT Final Result Nasogastric tube tip is in the stomach. CT ABDOMEN PELVIS W IV CONTRAST Additional Contrast? None Final Result 1. Small bowel obstruction with a transition point along the right paramidline of the anterior abdominal wall. 2. Peripherally calcified left-sided renal lesion measuring 4.1 x 1.6 x 3.5 cm. This may represent sequela of post treatment change. 3. Colonic diverticulosis. ASSESSMENT / PLAN: MEDICAL DECISION MAKING: Primary Problem(s): Small bowel obstruction (HCC) Differential diagnoses: SBO, ileus Condition is an acute or chronic illness or injury that poses threat to life or bodily function Treatment plan: Erik Sawant--notes reviewed Up to chair and ambulate Imaging: Daily KUB Consider SBFT if not improvement Medications: Morphine prn pain IV fluids Medication Monitoring / High Risk Medications: Parenteral administration of controlled substance(s) Abnormal ECG with significant ST changes but normal initial troponin Treatment plan: Shellie cardiology-notes reviewed Serial ECG's Trend troponin Medications: Pt NPO due to SBO at this time but may benefit from ASA, Statin once able to take PO Seizure disorder Condition is a chronic stable condition Treatment plan: Seizure / fall precautions in place Medications: Continue IV Keppra since PO meds on hold due to SBO IV Vimpat Nutrition status: at risk for malnutrition Dermatology Nurse Practitioner consult initiated I/O Daily weight Monitor Daily intake Nutritional Supplements as tolerated MALNUTRITION ASSESSMENT AND PLAN The following was documented by the Dietitian: Malnutrition Assessment Context of Malnutrition: Acute Illness (06/17/24730) Acute Illness - Energy Intake : Mild decrease in energy intake (06/17/24730) Acute Illness - Weight Loss : No weight loss (06/17/24730) Acute Illness - Body Fat Loss: No body fat loss (06/17/24730) Acute Illness - Muscle Mass Loss: No muscle mass loss (06/17/24730) Acute Illness - Fluid Accumulation : Mild (06/17/24730) Acute Illness - Fluid Accumulation Location: Extremities (06/17/24730) Acute Illness - Zoning Engineer Strength: Not Performed (06/17/24730) Acute Illness - Malnutrition Score: 1 (06/17/24 0731) Malnutrition Status: At risk for malnutrition (06/17/24 0731) I agree with the dietitian's malnutrition assessment. Medical Nutrition Therapy: N.p.o. Hospital Prophylaxis: DVT: Lovenox Stress Ulcer: H2 Klarissa Disposition: Shared decision making: MRDD no family at bedside Social determinants of health that may impact management: Resides in [facility] Code status: Full Code Disposition: Discharge plan is pending [facility] Advanced Care Planning documentation: [x] I have [...] the patient's medical record. [DOES NOT SATISFY [facility] PERFORMANCE] RAISA Mejia CNP , RAISA PRODUCTION WOOD CRAFTSMAN-C Hospitalist Medicine 06/18/2024, 8:41 AM Cosigned by Yana Cornejo MD at 06/18/2024 4:05 PM EDT Associated attestation - Yana Cornejo MD - 06/18/2024 4:05 PM EDT Yana Cornejo M.D. Internal Medicine PA/PRODUCTION WOOD CRAFTSMAN Attestation Note Patient: Amol Taylor Date of Admission: 06/16/2024 9:36 AM Date of Evaluation: 06/18/2024 I personally evaluated and examined the patient [id number] in conjunction with the PA/PRODUCTION WOOD CRAFTSMAN and agree with the management and dispostition of the patient. Please see the PA/PRODUCTION WOOD CRAFTSMAN's note for full details.My gee findings are: SUBJECTIVE: Amol Taylor is a 69 y.o. male who was seen today along with Dorota Salter CNP for follow up of Small bowel obstruction (HCC). He states he's feeling fine today. He denies abd pain. Per nursing staff no new issues overnight. Seems to be tolerating NGT without difficulty OBJECTIVE: Vitals: Temp: 97.6 F (36.4 C) BP: (!) 130/118 Respirations: 22 Pulse: 81 SpO2: 98 % Weight Wt Readings from Last 3 Encounters: 06/18/24 93.4 kg (205 lb 14.4 oz) 04/23/24 89.6 kg (197 lb 8 oz) 02/07/24 89.6 kg (197 lb 8 oz) Body mass index is 29.54 kg/m . 24HR INTAKE/OUTPUT: Intake/Output Summary (Last 24 hours) at 06/18/2024 1604 Last data filed at 06/18/2024 1531 Gross per 24 hour Intake 3334.04 ml Output 350 ml Net 2984.04 ml Exam: GEN: Awake and alert. No acute distress . EYES: EOMI, pupils equal NECK: Supple. No [...] lesions. DATA: Complete Blood Count: Recent Labs 06/16/24 1004 06/17/24 0525 06/18/24 0515 WBC 14.2* 12.2* 9.7 RBC 4.75 4.21 3.67* HGB 15.1 13.5 11.9* HCT 46.4 42.2 36.3* MCV 97.7 100.2 98.9 RDW 12.6 12.8 12.6 PLT 271 214 184 Recent Labs 06/16/24 1004 06/17/24 0525 06/18/24 0515 NEUTROABS 11.75* 8.72* 7.14 LYMPHOPCT 10* 17* 16* LYMPHSABS 1.40 2.06 1.57 MONOPCT 5 9 8 BASOPCT 0 0 0 IMMGRAN 0 0 0 CMP: Recent Labs 06/16/24 1004 06/17/24 0525 06/18/24 0515 NA 141 141 144 K 4.0 4.1 3.8 CL 103 112* 110* CO2 26 22 22 BUN 25* 24* 20 CREATININE 1.0 1.0 0.8 GLUCOSE 113* 97 83 CALCIUM 9.7 8.9 8.6 BILITOT 0.3 0.4 0.5 ALKPHOS 209* 173* 151* AST 19 20 15 ALT 16 15 16 UA: Lab Results Component Value Date COLORU Yellow 06/16/2024 WBCUA 0 TO 2 06/16/2024 RBCUA 5 TO 10 06/16/2024 LEUKOCYTESUR NEGATIVE 06/16/2024 GLUCOSEU NEGATIVE 06/16/2024 KETUA NEGATIVE 06/16/2024 PROTEINU 1+ (A) 06/16/2024 HGBUR 1+ (A) 06/16/2024 CASTUA NOT REPORTED 12/05/2018 BACTERIA 1+ (A) 06/16/2024 YEAST NOT REPORTED 12/05/2018 Lactic Acid: Recent Labs 06/16/24 100 LACTSEPSIS 1.8 High Sensitivity Troponin: Recent Labs 06/16/24 1645 06/16/24 1920 TROPHS 12 12 Microbiology / Cultures: Results Procedure Component Value Units Date/Time Culture, Blood 1 [[id number]] Collected: 06/16/24 100 Order Status: Completed Specimen: Blood Updated: 06/18/24656 Specimen Description .BLOOD Special Requests 10ML RT HAND Culture NO GROWTH 2 DAYS Imaging Data: XR ABDOMEN (KUB) (SINGLE AP VIEW) Result Date: 06/17/2024 EXAMINATION: ONE SUPINE XRAY VIEW(S) OF THE ABDOMEN 06/17/2024 7:21 am COMPARISON: CT abdomen [id number]/2024 HISTORY: ORDERING SYSTEM PROVIDED HISTORY: sbo TECHNOLOGIST PROVIDED HISTORY: sbo FINDINGS: Enteric tube projects past the GE junction with tip projecting over the gastric body. No significant small bowel dilatation. Gas is seen throughout the colon and rectum. Nonobstructive bowel gas pattern. XR CHEST (SINGLE VIEW FRONTAL) Result Date: 06/16/2024 EXAMINATION: ONE XRAY VIEW OF THE CHEST 06/16/2024 5:23 pm COMPARISON: 04/19/2024, 02/03/2024 HISTORY: ORDERING SYSTEM PROVIDED HISTORY: coarse lung sounds TECHNOLOGIST PROVIDED HISTORY: coarse lung sounds FINDINGS: The enteric tube courses off the field of view in the upper abdomen.The cardiac and m ediastinal contours appear unchanged. Shallow inflation. Streaky opacities in the lung bases again noted. No new airspace disease identified in the interval. No evidence for pneumothorax. Large amount of bowel gas in the left upper quadrant again demonstrated. Left vagal neurostimulator in place. No significant interval change. XR ABDOMEN FOR NG/OG/NE TUBE PLACEMENT Result Date: 06/16/2024 EXAMINATION: ONE SUPINE XRAY VIEW(S) OF THE ABDOMEN 06/16/2024 1:56 pm COMPARISON: CT 06/16/2024 HISTORY: ORDERING SYSTEM PROVIDED HISTORY: Confirmation of course of NG/OG/NE tube and location of tip of tube TECHNOLOGIST PROVIDED HISTORY: Confirmation of course of NG/OG/NE tube and location of tip of tube Portable?->Yes FINDINGS: Nasogastric tube tip appears to be in the dilated stomach within the left upper abdomen. There are gas-filled mildly dilated small bowel loops in the visualized mid abdomen. Generator pack in the left chest wall. Nasogastric tube tip is in the stomach. CT ABDOMEN PELVIS W IV CONTRAST Additional Contrast? None Result Date: 06/16/2024 EXAMINATION: CT OF THE ABDOMEN AND PELVIS WITH CONTRAST 06/16/2024 11:39 am TECHNIQUE: CT of the abdomen and pelvis was performed with the administration of intravenous contrast. Multiplanar reformatted images are provided for review. Automated exposure control, iterative reconstruction, and/or weight based adjustment of the mA/kV was utilized to reduce the radiation dose to as low as reasonably achievable. COMPARISON: 04/19/2024, 02/02/2024. HISTORY: ORDERING SYSTEM PROVIDED HISTORY: Bowel obstruction TECHNOLOGIST PROVIDED HISTORY: Bowel obstruction Decision Support Exception - unselect if not a suspected or confirmed emergency medical condition->Emergency Medical Condition (MA) FINDINGS: Lower Chest: The heart size is normal. Coronary artery vascular calcifications are noted. There iselevation of the left hemidiaphragm with asymmetric atelectasis in the left lung base. There is no pleural effusion. Organs: The liver, gallbladder, adrenal glands, pancreas, and spleen are unremarkable. There is a peripherally calcified left-sided renal lesion measuring 4.1 x 1.6 x 3.5 cm. This may represent sequela of post treatment change. There is no hydronephrosis. GI/Bowel: There is marked distension of the stomach. There is a small bowel obstruction with a transition point along the right paramidline of the anterior abdominal wall, axial image 139. The distal small bowel loops are decompressed. There are several scattered colonic diverticula. The appendix is normal. Pelvis: The bladder is partially distended with urine. The prostate and seminal vesicles are unremarkable. No inguinal or pelvic sidewall adenopathy. Peritoneum/Retroperitoneum: Atherosclerotic plaque is noted in the aorta and its branch vessels. There is no retroperitoneal adenopathy. Bones/Soft Tissues: There are no areas of abnormal soft tissue swelling. Degenerative changes are noted in the spine. Diffuse idiopathic skeletal hyperostosis. There is no fracture. 1. Small bowel obstruction with a transition point along the right paramidline of the anterior abdominal wall. 2. Peripherally calcified left-sided renal lesion measuring 4.1 x 1.6 x 3.5 cm. This mayrepresent sequela of post treatment change. 3. Colonic diverticulosis. ASSESSMENT: Principal Problem: Small bowel obstruction (HCC) Active Problems: Abnormal ECG Sinus tachycardia S/P placement of VNS (vagus nerve stimulation) device Seizure disorder (HCC) MR (mental retardation), severe Resolved Problems: * No resolved hospital problems. * PLAN: I agree with the assessment, plan and medical decision making documentation as outlined by APC: Condition is improving Treatment plan: Cardiology consult appreciated - discussed with Dr. Modi Gen Surg consult appreciated - Dr. Sawant's notes reviewed Trial clamp NGT today Imaging: Repeat abd xray this AM shows improving bowel gas pattern with air into the colon ECG's improving Labs: troponin negative x 2 Daily CBC with diff, BMP ordered Medications: Continue Morphine prn Continue IV Keppra for seizure prevention Disposition: Discharge plan is pending SHARED [facility] VISIT, PHYSICIAN ATTESTATION: [id number] I personally performed a substantive part of the MDM during the patient's visit. I personally evaluated and examined the patient. I personally made or approved the documented management plan and acknowledge its risk of complications. Test interpretation: My independent EKG interpretation: significant ST segment changes on initial ECGs which improved after repeat My independent imaging interpretation: CT abd shows dilated bowel loops consistent with SBO . Repeat abd xray today shows air getting through to colon Management and/or test interpretation discussed with OTONIEL Zuñiga MD , M.D. 06/18/2024 4:04 PM * Jami Sawant, DO - 06/18/2024 8:23 AM EDT General Surgery: Daily Progress Note PATIENT NAME: Amol Taylor TODAY'S DATE: 06/18/2024, 1:33 PM CC: Doing okay SUBJECTIVE: Pt seen and examined at bedside today. Denies abdominal pain, nausea. Having bowel movements and passing flatus. OBJECTIVE: VITALS: BP (!) 144/78 Pulse 73 Temp 97.3 F (36.3 C) (Temporal) Resp 22 Ht 1.778 m (5' 10 ) Wt 93.4 kg (205 lb 14.4 oz) SpO2 95% BMI 29.54 kg/m INTAKE/OUTPUT: Intake/Output Summary (Last 24 hours) at 06/18/2024 1333 Last data filed at 06/18/2024 0938 Gross per 24 hour Intake 2652.79 ml Output 650 ml Net 2002.79 ml PHYSICAL EXAM: General Appearance: awake, alert, in no acute distress HEENT: Normocephalic, atraumatic, mucus membranes moist Heart: Regular rate and rhythm Lungs: Equal chest rise bilaterally, no accessory muscle use Abdomen: Soft, nontender, mild distention Extremities: No cyanosis, pitting edema, rashes noted. Skin: Skin color, texture, turgor normal. No rashes or lesions. Data: CBC with Differential: Lab Results Component Value Date/Time WBC 9.7 06/18/2024 05:15 AM RBC 3.67 06/18/2024 05:15 AM RBC 3.43 10/31/2010 11:48 AM HGB 11.9 06/18/2024 05:15 AM HCT 36.3 06/18/2024 05:15 AM PLT 184 06/18/2024 05:15 AM PLT 206 10/31/2010 11:48 AM MCV 98.9 06/18/2024 05:15 AM MCH 32.4 06/18/2024 05:15 AM MCHC 32.8 06/18/2024 05:15 AM RDW 12.6 06/18/2024 05:15 AM LYMPHOPCT 16 06/18/2024 05:15 AM MONOPCT 8 06/18/2024 05:15 AM EOSPCT 2 06/18/2024 05:15 AM BASOPCT 0 06/18/2024 05:15 AM MONOSABS 0.73 06/18/2024 05:15 AM LYMPHSABS 1.57 06/18/2024 05:15 AM EOSABS 0.22 06/18/2024 05:15 AM BASOSABS 0.04 06/18/2024 05:15 AM DIFFTYPE NOT REPORTED 04/13/2021 07:30 AM BMP: Lab Results Component Value Date/Time NA 144 06/18/2024 05:15 AM K 3.8 06/18/2024 05:15 AM CL 110 06/18/2024 05:15 AM CO2 22 06/18/2024 05:15 AM BUN 20 06/18/2024 05:15 AM CREATININE 0.8 06/18/2024 05:15 AM CALCIUM 8.6 06/18/2024 05:15 AM GFRAA >60 09/10/2021 10:31 PM LABGLOM >90 06/18/2024 05:15 AM LABGLOM >90 06/21/2023 05:45 AM GLUCOSE 83 06/18/2024 05:15 AM GLUCOSE 92 10/31/2010 11:48 AM Radiology Review: XR ABDOMEN (KUB) (SINGLE AP VIEW) Result Date: 06/17/2024 Nonobstructive bowel gas pattern. XR CHEST (SINGLE VIEW FRONTAL) Result Date: 06/16/2024 No significant interval change. XR ABDOMEN FOR NG/OG/NE TUBE PLACEMENT Result Date: 06/16/2024 Nasogastric tube tip is in the stomach. CT ABDOMEN PELVIS W IV CONTRAST Additional Contrast? None Result Date: 06/16/2024 1. Small bowel obstruction with a transition point along the right paramidline of the anterior abdominal wall. 2. Peripherally calcified left-sided renal lesion measuring 4.1 x 1.6 x 3.5 cm. This mayrepresent sequela of post treatment change. 3. Colonic diverticulosis. ASSESSMENT: Active Hospital Problems Diagnosis Date Noted Abnormal ECG [R94.31] 06/16/2024 Sinus tachycardia [R00.0] 06/16/2024 Small bowel obstruction (HCC) [K56.609] 04/19/2024 Seizure disorder (HCC) [G40.909] 02/12/2023 S/P placement of VNS (vagus nerve stimulation) device [Z96.89] 02/11/2023 MR (mental retardation), severe [F72] 10/20/2013 69 y.o. male with SBO versus pSBO Plan: NG clamp trial for 4 to 6 hours, if no nausea or increase in pain after clamp trial is complete we will check residuals. If residuals less than 150 cc okay to remove NG tube and start clear liquids N.p.o., IVF Continue nonoperative management of likely partial small bowel obstruction * Carol Harman RN - 06/18/2024 6:56 AM EDT Entered patient's room for morning vital signs and head to toe assessment. Patient resting in the bed at this time. A&O x2 (person and place), calm, and cooperative. Patient denies of pain at this time. Vital signs and head to toe assessment completed at this time, see flowsheets for more details. Oral care performed and oral suction completed. Bowel sounds active x4. NG tube in place a 70 cmand attached to low intermittent suction. Patient denies no more needs at this time. Call light within reach. Bed alarm on. Bed/chair wheels locked. Bed in lowest position. * Max Esquivel GN - 06/18/2024 5:30 AM EDT RT at bedside due to patient being noncompliant with coughing and increased phlegm production. Patient encouraged to cough. JOSEPH De Oliveira notified. * Whitney Freed RN - 06/17/2024 11:15 PM EDT Service Coordinator [facility] notified JOSEPH De Oliveira regarding discontinuing of fluids and that patient has crackles throughout. New order for fluids due to patient being NPO per JOSEPH De Oliveira. * Max Esquivel GN - 06/17/2024 7:27 PM EDT Patient resting comfortable in bed. Patient denies any pain at this time. Patient reports no nauseaor vomiting. Bowel sounds active in all 4 quadrants. NG tube connected to low intermittent suction,tube it secured with tape to right nare at 70 cm. Patient denies any complaints at this time. Bed alarm set, call light within reach, instructed on how to use call light, bed locked. * Jami Sawant DO - 06/17/2024 5:39 PM EDT General Surgery: Daily Progress Note PATIENT NAME: Amol Taylor TODAY'S DATE: 06/17/2024, 6:39 PM CC: Doing okay SUBJECTIVE: Pt seen and examined at bedside today. Denies abdominal pain, nausea. Having bowel movements and passing flatus. OBJECTIVE: VITALS: BP (!) 141/81 Pulse 77 Temp 96.9 F (36.1 C) (Temporal) Resp 18 Ht 1.778 m (5' 10 ) Wt 96.3 kg (212 lb 4.9 oz) SpO2 96% BMI 30.46 kg/m INTAKE/OUTPUT: Intake/Output Summary (Last 24 hours) at 06/17/2024 1839 Last data filed at 06/17/2024 1546 Gross per 24 hour Intake 2260.74 ml Output 2650 ml Net -389.26 ml PHYSICAL EXAM: General Appearance: awake, alert, in no acute distress HEENT: Normocephalic, atraumatic, mucus membranes moist Heart: Regular rate and rhythm Lungs: Equal chest rise bilaterally, no accessory muscle use Abdomen: Soft, nontender, mild distention Extremities: No cyanosis, pitting edema, rashes noted. Skin: Skin color, texture, turgor normal. No rashes or lesions. Data: CBC with Differential: Lab Results Component Value Date/Time WBC 12.2 06/17/2024 05:25 AM RBC 4.21 06/17/2024 05:25 AM RBC 3.43 10/31/2010 11:48 AM HGB 13.5 06/17/2024 05:25 AM HCT 42.2 06/17/2024 05:25 AM PLT 214 06/17/2024 05:25 AM PLT 206 10/31/2010 11:48 AM MCV 100.2 06/17/2024 05:25 AM MCH 32.1 06/17/2024 05:25 AM MCHC 32.0 06/17/2024 05:25 AM RDW 12.8 06/17/2024 05:25 AM LYMPHOPCT 17 06/17/2024 05:25 AM MONOPCT 9 06/17/2024 05:25 AM EOSPCT 2 06/17/2024 05:25 AM BASOPCT 0 06/17/2024 05:25 AM MONOSABS 1.10 06/17/2024 05:25 AM LYMPHSABS 2.06 06/17/2024 05:25 AM EOSABS 0.19 06/17/2024 05:25 AM BASOSABS 0.05 06/17/2024 05:25 AM DIFFTYPE NOT REPORTED 04/13/2021 07:30 AM BMP: Lab Results Component Value Date/Time NA 141 06/17/2024 05:25 AM K 4.1 06/17/2024 05:25 AM CL 112 06/17/2024 05:25 AM CO2 22 06/17/2024 05:25 AM BUN 24 06/17/2024 05:25 AM CREATININE 1.0 06/17/2024 05:25 AM CALCIUM 8.9 06/17/2024 05:25 AM GFRAA >60 09/10/2021 10:31 PM LABGLOM 87 06/17/2024 05:25 AM LABGLOM >90 06/21/2023 05:45 AM GLUCOSE 97 06/17/2024 05:25 AM GLUCOSE 92 10/31/2010 11:48 AM Radiology Review: XR ABDOMEN (KUB) (SINGLE AP VIEW) Result Date: 06/17/2024 Nonobstructive bowel gas pattern. XR CHEST (SINGLE VIEW FRONTAL) Result Date: 06/16/2024 No significant interval change. XR ABDOMEN FOR NG/OG/NE TUBE PLACEMENT Result Date: 06/16/2024 Nasogastric tube tip is in the stomach. CT ABDOMEN PELVIS W IV CONTRAST Additional Contrast? None Result Date: 06/16/2024 1. Small bowel obstruction with a transition point along the right paramidline of the anterior abdominal wall. 2. Peripherally calcified left-sided renal lesion measuring 4.1 x 1.6 x 3.5 cm. This mayrepresent sequela of post treatment change. 3. Colonic diverticulosis. ASSESSMENT: Active Hospital Problems Diagnosis Date Noted Abnormal ECG [R94.31] 06/16/2024 Sinus tachycardia [R00.0] 06/16/2024 Small bowel obstruction (HCC) [K56.609] 04/19/2024 Seizure disorder (HCC) [G40.909] 02/12/2023 S/P placement of VNS (vagus nerve stimulation) device [Z96.89] 02/11/2023 MR (mental retardation), severe [F72] 10/20/2013 69 y.o. male with SBO versus pSBO Plan: NG tube to suction for today N.p.o., IVF KUB reviewed, dilation of bowel much improved If continues to do well and NG tube output decreases throughout today we will plan for NG tube clamp trial in the morning. Continue nonoperative management of likely partial small bowel obstruction * Melany Dorman RCP - 06/17/2024 3:09 PM EDT RESPIRATORY ASSESSMENT PROTOCOL Patient Name: Amol Taylor Room#: [id number] : 1955 Admitting diagnosis: Small bowel obstruction (HCC) [K56.609] SBO (small bowel obstruction) (HCC) [K56.609] Medical History: Past Medical History: Diagnosis Date Arthritis BPH (benign prostatic hyperplasia) Dysphagia GERD (gastroesophageal reflux disease) Hearing loss HLD (hyperlipidemia) Insomnia MR (mental retardation) Periorbital cellulitis SBO (small bowel obstruction) (HCC) Seizures (HCC) Epilepsy Ventral hernia Vitamin D deficiency PATIENT ASSESSMENT LABORATORY DATA Hematology: Lab Results Component Value Date/Time WBC 12.2 06/17/2024 05:25 AM RBC 4.21 06/17/2024 05:25 AM RBC 3.43 10/31/2010 11:48 AM HGB 13.5 06/17/2024 05:25 AM HCT 42.2 06/17/2024 05:25 AM PLT 214 06/17/2024 05:25 AM PLT 206 10/31/2010 11:48 AM Chemistry: No results found for: PHART , XRO9JBI , PO2ART , Q7NICVED , LAR7QFK , PBEA , NBEA VITALS Pulse: 75 Respirations: 20 BP: (!) 141/81 SpO2: 97 % O2 Device: None (Room air) Temp: 96.9 F (36.1 C) SKIN COLOR [x] Normal [] Pale [] Dusky [] Cyanotic RESPIRATORY PATTERN [x] Normal [] Dyspnea [] Piero-Fajardo [] Kussmaul [] Biots AMBULATORY [] Yes [] No [x] With Assistance Patient Acuity 0 1 2 3 4 Score Level of Consciousness (LOC) [x] Alert & Oriented or Pt normal LOC [] Confused;follows directions [] Confused & uncooper-ative [] Obtunded [] Comatose 0 Respiratory Rate (RR) [x] Reg. rate & pattern. 12 - 20 bpm [] Increased RR. Greater than 20 bpm [] SOB w/ exertion or RR greater than 24 bpm [] Access- ory muscle use at rest. Abn. resp. [] SOB at rest. 0 Bilateral Breath Sounds (BBS) [] Clear [] Diminish-ed bases [] Diminish-ed t/o, or rales [x] Sporadic, scattered wheezes or rhonchi [] Persistentwheezes and, or absent BBS 3 Cough [] Strong, effective, & non-prod. [x] Effective & prod. Less than 25 ml (2 TBSP) over past 24 hrs [] Ineffective & non-prod to less than 25 ML over past 24 hrs [] Ineffective and, or greater than 25 ml sputum prod. past 24 hrs. [] Nonspon- taneous; Requires suctioning 1 Pulmonary History (PULM HX) [x] No smoking and no chronic pulmonary history [] Former smoker. Quit over 12 mos. ago [] Current smoker or quit w/ in 12 mos [] Pulm. History and, or 20 pk/yr smoking hx [] Admitted w/ acute pulm. dx and, or has been admitted w/ pulm. dx 2 or more times over past 12 mos 0 Surgical History this Admit (SURG HX) [x] No surgery [] General surgery [] Lower abdominal [] Thoracic or upper abdominal [] Thoracic w/ pulm. disease 0 Chest X-Ray (CXR)/CT Scan [x] Clear or not applicable [] Not available [] Atelectasis or pleural effusions [] Localized infiltrate or pulm. edema [] Con-solidated Infiltrates, bilateral, or in more than 1 lobe 0 TOTAL ACUITY: 4 CARE PLAN If Acuity Level is 2, 3, or 4 in any of the following: [] BILATERAL BREATH SOUNDS (BBS) [x] PULMONARY HISTORY (PULM HX) [] Respiratory Rate (RR) Goal: Improve respiratory functions in patients with airway disease and decrease WOB [x] AEROSOL PROTOCOL Total Acuity: 14-28 [] Secondary Assessment in 24 hrs Total Acuity: 9-13 [] Secondary Assessment in 24 hrs Total Acuity: 4-8 [] Secondary Assessment in 24 hrs Total Acuity: 0-3 [x] Secondary Assessment in 48 hrs HHN AEROSOL THERAPY with [physician-ordered bronchodilator(s)] q 4 & Albuterol PRN q2 hrs. Breath-Actuated Neb if BBS Acuity = 4, and pt. can use MP. Notify physician if condition deteriorates. HHN AEROSOL THERAPY with [physician-ordered bronchodilator(s)] QID and Albuterol PRN q4 hrs. Breath-Actuated Neb if BBS Acuity = 4, and pt. can use MP. Notify physician if condition deteriorates. MDI THERAPY with 2 actuations of [physician-ordered bronchodilator(s)] via spacer TID Albuterol and PRN q4 hrs. If unable to utilize MDI: HHN [physician-ordered bronchodilator(s)] TID and Albuterol PRN q4 hrs. Notify physician if condition deteriorates. MDI THERAPY with [physician-ordered bronchodilator(s)] via spacer TID PRN. If unable to utilize MDI: HHN [physician-ordered bronchodilator(s)] TID PRN. Notify physician if condition deteriorates. If Acuity Level is 2, 3, or 4 in any of the following: [] COUGH [] SURGICAL HISTORY (SURG HX) [] CHEST XRAY (CXR) Goal: Improvement in sputum mobilization in patients with ineffective airway clearance. Reverse atelectasis. [] Bronchopulmonary Hygiene Protocol Total Acuity: 14-28 [] Secondary Assessment in 24 hrs Total Acuity: 9-13 [] Secondary Assessment in 24 hrs Total Acuity: 4-8 [] Secondary Assessment in 24 hrs Total Acuity: 0-3 [] Secondary Assessment in 48 hrs METANEB QID with [physician-ordered bronchodilator(s)] if CXR Acuity = 4; otherwise: PD&P, Oscillatory Therapy, or Vest QID & PRN AND PEP QID & PRN NT Sxn PRN for ineffective cough METANEB QID with [physician-ordered bronchodilator(s)] if CXR Acuity = 4; otherwise: PD&P, Oscillatory Therapy or Vest QID & PRN AND PEP QID & PRN NT Sxn PRN for ineffective cough PD&P, Oscillatory Therapy, or Vest TID & PRN AND PEP TID & PRN Instruct patient to self-perform IS q1hr WA If Acuity Level is 2 or above in the following: [] PULMONARY HISTORY (PULM HX) Goal: Assist patient in quitting smoking to slow or stop the progression of lung disease. [] Smoking Cessation Protocol SMOKING CESSATION EDUCATION provided according to policy RT_201: (jeanette with an X) ____Yes ____ No ____ NA Smoking Cessation Booklet given: ____Yes ____No ____Patient Refused * Lizz Modi MD - 06/17/2024 12:50 PM EDT Images from the original note were not included. Patient: Amol Taylor : 1955 Date of Admission: 06/16/2024 Primary Care Physician: Carson Dior Today's Date: 06/17/2024 REASON FOR CONSULTATION/CC: Acute VT/STEMI HPI: I had the pleasure of seeing Mr. Kayla lord who is a 69 y.o. male who was admitted for a suspected small bowel obstruction. I was consulted after he underwent an ECG which was suggestive of an acute VT/STEMI. He is an adult with a history of MR but was able to answer most questions without difficulty. History of Present Illness 06/17/24 The patient is a 71-year-old male who presents for follow-up after being admitted for a small bowelobstruction. He was counseled on 06/16/2024 for a possible non-STEMI with what appeared to be ST elevation in the inferior leads. Metoprolol IV was administered due to NPO status, and a repeat EKG showed improvement, though not complete normalization. Troponins times 2 were flat at 12 and within normal limits. At that time, he denied any chest pain or chest pressure. Currently, no pain or discomfort is reported, including abdominal pain. Respiratory function appears to be satisfactory. He denied any current chest pain, shortness of breath, abdominal pain, bleeding problems, problems with his medications or any other concerns at this time. Past Medical History: Diagnosis Date Arthritis BPH (benign prostatic hyperplasia) Dysphagia GERD (gastroesophageal reflux disease) Hearing loss HLD (hyperlipidemia) Insomnia MR (mental retardation) Periorbital cellulitis SBO (small bowel obstruction) (HCC) Seizures (HCC) Epilepsy Ventral hernia Vitamin D deficiency CURRENT ALLERGIES: Penicillins, Sodium hypochlorite, and Clindamycin REVIEW OF SYSTEMS: 14 systems were reviewed. Pertinent positives and negatives as above, all else negative. Past Surgical History: Procedure Laterality Date ABDOMEN SURGERY 20122013 Bowel Obstruction X2 CAST APPLICATION Left Lt. Ankle , X3 HYDROCELE EXCISION 10/2015 LAPAROSCOPY 10/19/13 with DANIEL LAPAROTOMY 10/19/13 with partial cecectomy VAGAL NERVE STIMULATION placed, then replaced VAGAL NERVE STIMULATION 12/14/2015 replaced generator battery Social History: Social History Tobacco Use Smoking status: Never Vaping Use Vaping status: Never Used Substance Use Topics Alcohol use: No Drug use: No OUTPATIENT MEDICATIONS: Outpatient Medications Marked as Taking for the 06/16/24 encounter (Hospital Encounter) Medication Sig Dispense Refill sennosides-docusate sodium (SENOKOT-S) 8.6-50 MG tablet Take 2 tablets by mouth Daily with supper olopatadine (PATADAY) 0.2 % SOLN ophthalmic solution Place 1 drop into both eyes daily Affected ey vitamin B-12 (CYANOCOBALAMIN) 1000 MCG tablet Take 1 tablet by mouth daily linaclotide (LINZESS) 145 MCG capsule Take 1 capsule by mouth every morning (before breakfast) 30 capsule 0 magnesium oxide (MAG-OX) 400 (240 Mg) MG tablet Take 1 tablet by mouth daily meclizine (ANTIVERT) 25 MG tablet Take 1 tablet by mouth daily levETIRAcetam (KEPPRA) 750 MG tablet Take 2 tablets by mouth daily 60 tablet 3 levETIRAcetam (KEPPRA) 1000 MG tablet Take 2 tablets by mouth nightly 60 tablet 3 pantoprazole (PROTONIX) 40 MG tablet Take 1 tablet by mouth every morning (before breakfast) 90 tablet 1 lamoTRIgine (LAMICTAL) 200 MG tablet Take 2 tablets by mouth every morning lamoTRIgine (LAMICTAL) 200 MG tablet Take 3 tablets by mouth at bedtime primidone (MYSOLINE) 250 MG tablet Take 1.5 tablets by mouth nightly calcium carbonate (TUMS) 500 MG chewable tablet Take 1 tablet by mouth 2 times daily latanoprost (XALATAN) 0.005 % ophthalmic solution Place 1 drop into both eyes nightly Vitamin D (CHOLECALCIFEROL) 25 MCG (1000 UT) TABS tablet Take 1 tablet by mouth daily primidone (MYSOLINE) 250 MG tablet Take 1 tablet by mouth every morning lacosamide (VIMPAT) 150 MG TABS tablet Take 1 tablet by mouth 2 times daily. finasteride (PROSCAR) 5 MG tablet Take 1 tablet by mouth nightly tamsulosin (FLOMAX) 0.4 MG capsule Take 1 capsule by mouth 2 times daily lacosamide (VIMPAT) injection 150 mg, BID [START ON 06/18/2024] levETIRAcetam (KEPPRA) 1500 mg/100 mL IVPB, Daily levETIRAcetam (KEPPRA) 2,000 mg in sodium chloride 0.9 % 250 mL IVPB, Nightly albuterol sulfate HFA (PROVENTIL;VENTOLIN;PROAIR) 108 (90 Base) MCG/ACT inhaler 2 puff, Q4H PRN 0.9 % sodium chloride infusion, Continuous sodium chloride flush 0.9 % injection 10 mL, 2 times per day sodium chloride flush 0.9 % injection 10 mL, PRN 0.9 % sodium chloride infusion, PRN potassium chloride (KLOR-CON M) extended release tablet 40 mEq, PRN Or potassium bicarb-citric acid (EFFER-K) effervescent tablet 40 mEq, PRN Or potassium chloride 10 mEq/100 mL IVPB (Peripheral Line), PRN enoxaparin (LOVENOX) injection 40 mg, Daily ondansetron (ZOFRAN-ODT) disintegrating tablet 4 mg, Q8H PRN Or ondansetron (ZOFRAN) injection 4 mg, Q6H PRN [Held by provider] polyethylene glycol (GLYCOLAX) packet 17 g, Daily PRN morphine (PF) injection 2 mg, Q2H PRN Or morphine sulfate (PF) injection 4 mg, Q2H PRN LORazepam (ATIVAN) injection 0.5 mg, Q6H PRN albuterol sulfate HFA (PROVENTIL;VENTOLIN;PROAIR) 108 (90 Base) MCG/ACT inhaler 2 puff, TID RT famotidine (PEPCID) 20 MG/2ML 20 mg in sodium chloride (PF) 0.9 % 10 mL injection, BID FAMILY HISTORY: family history includes Arthritis in his mother; Diabetes in his paternal grandmother; Heart Attack in his maternal grandfather; Heart Disease in his brother and mother; High Blood Pressure in his mother; Lung Cancer in his father; Other in his mother; Thyroid Cancer in his mother. PHYSICAL EXAM: BP 131/89 Pulse 85 Temp 97.2 F (36.2 C) (Temporal) Resp 18 Ht 1.778 m (5' 10 ) Wt 96.3 kg(212 lb 4.9 oz) SpO2 95% BMI 30.46 kg/m Body mass index is 30.46 kg/m . Constitutional: He is oriented to person. He appears well-developed and well- nourished. In no acutedistress. HEENT: Normocephalic and atraumatic.No JVD present. Carotid bruit is not present. No mass and no thyromegaly present. No lymphadenopathy present. Cardiovascular: Normal rate, regular rhythm, normal heart sounds. Exam reveals no gallop and no friction rubs. No murmur was heard.. Pulmonary/Chest: Effort normal and breath sounds normal. No respiratory distress. He has no wheezes, rhonchi or rales. Abdominal: Soft, non-tender. Bowel sounds and aorta are normal. He exhibits no organomegaly, mass or bruit. Extremities: None. No cyanosis or clubbing. 2+ radial and carotid pulses. Distal extremity pulses: 2+ bilaterally.. Neurological: He is alert and oriented to person. No evidence of gross cranial nerve deficit. Coordination appeared normal. Skin: Skin is warm and dry. There is no rash or diaphoresis. Psychiatric: He has a normal mood and affect. His speech is normal and behavior is normal. MOST RECENT LABS ON RECORD: Lab Results Component Value Date WBC 12.2 (H) 06/17/2024 HGB 13.5 06/17/2024 HCT 42.2 06/17/2024 PLT 214 06/17/2024 CHOL 155 04/13/2021 TRIG 53 04/13/2021 HDL 50 04/13/2021 ALT 15 06/17/2024 AST 20 06/17/2024 NA 141 06/17/2024 K 4.1 06/17/2024 CL 112 (H) 06/17/2024 CREATININE 1.0 06/17/2024 BUN 24 (H) 06/17/2024 CO2 22 06/17/2024 PSA 0.30 03/21/2023 INR 1.1 04/19/2024 ASSESSMENT: Patient Active Problem List Diagnosis Date Noted Abnormal ECG 06/16/2024 Sinus tachycardia 06/16/2024 Small bowel obstruction (HCC) 04/19/2024 Pneumatosis intestinalis 05/01/2023 Seizure disorder (HCC) 02/12/2023 S/P placement of VNS (vagus nerve stimulation) device 02/11/2023 Dysphagia 02/11/2023 Intellectual disability 02/10/2023 SBO (small bowel obstruction) ([facility]) 06/21/2022 AFTAB (obstructive sleep apnea) 10/11/2016 MR (mental retardation), severe 10/20/2013 PLAN: Assessment & Plan 1. Small bowel obstruction: - Continue monitoring for signs of improvement. - Focus on enhancing gastrointestinal motility. - Educate on dietary modifications to prevent recurrence. - Follow-up abdominal x-ray to confirm resolution. 2. ECG initially suspicious for possible non-STEMI with ST elevation in inferior leads: - Troponins x 2 were flat at 12 and within normal limits. - Repeat EKG showed improvement but not complete normalization. - Administered metoprolol i.v. due to n.p.o. status. - Monitor cardiac status and repeat EKG as needed. Will repeat ECG today to verify this remains within normal limits. -I do suspect that he does have significant coronary artery disease given his ST depression on his ECG during tachycardia. However, given his other medical problems right now I would at best defer this to a later time and depending on the patients life goals, perhaps avoid this if additional testing and/or treatment like a heart catheterization would not be welcome. Once again, thank you for allowing me to participate in this patients care. Please do not hesitate to contact me could I be of further assistance. Sincerely, Lizz Modi MD, MS, F.A.C.. [facility] Lock Technician [address] [place] [address] , I believe that the risk of significant morbidity and mortality related to the patient's current medical conditions are: Intermediate. June 17, 2024 The patient (or guardian, if applicable) and other individuals in attendance with the patient were advised that Artificial Intelligence will be utilized during this visit to record, process the conversation to generate a clinical note, and support improvement of the AI technology. The patient (or guardian, if applicable) and other individuals in attendance at the appointment consented to the use of AI, including the recording. * Carol Harman RN - 06/17/2024 12:36 PM EDT Pineda BHATT at bedside to attempt IV insertion. He was also unsuccessful after 2 attempts. RVAT steam gigger will be here in an hour and a half. * Carol Harman RN - 06/17/2024 11:39 AM EDT Patient pulled out IV. Service Coordinator [facility] Facility, Iveth RN, and Yun RN attempted to get another peripheral IV in, and after 4 attempts were unsuccessful. Service Coordinator Elderly Facility called Pineda BHATT and he was busy at the time to try for a ultrasound IV placement. IVAT team consulted and perfectserved for new line placement. * Elvira Nelson LSW - 06/17/2024 10:12 AM EDT Spoke with Patient's sister/Legal Guardian, alicia Davis: discharge planning. Patient is a 69 year old single, white male, admitted with a diagnosis of SBO. History of Mental Retardation and Epilepsynoted. Patient resides in a [facility] in [place] and his plan will be to return to the [facility] at discharge. Patient primarily relies on a wheelchair for assistance with ambulation. Requires assistance daily with his ADL's. [facility] staff provides this assistance along with managing his medications and providing for his transportation needs. PCP is Dr. Dior. Patient has Medicare and Medicaid insurance coverage and his prescriptions are well covered at this point. Discharge plan is to return to [facility] when stable. Patient is a 'Full Code' status at this timeand has legal guardian. OPEN PIT QUARRY SUPERVISOR following. [facility] to provide transportation home at discharge. KRYSTIN Torres 06/17/2024 * Yun Knight PT - 06/17/2024 8:41 AM EDT [facility] Inpatient/Observation Date: 06/17/2024 Patient Name: Amol Taylor : 1955 [x] Pt does not require skilled services due to: PT/OT order received and chart reviewed. Upon entering the room patient yelling at therapists refusing to sit edge of bed. Therapists continued to educated patient on purpose of therapy with patient continuing to refuse. When attempting to sit edge of bed patient became agitated and nursing stated patient did not need to get up. Per nursing patient is at his baseline and doesn't feel that patient needs therapy at this time and will more than likely continue to refuse. PT order will be discontinued at this time. Please re-consult if pt has a change or decline in function. Thank you for the opportunity to assist in the care of this patient. Yun Knight, PT, DPT Date: 06/17/2024 * Mavis Quiroz OTR/L - 06/17/2024 8:41 AM EDT [facility] Inpatient/Observation Date: 06/17/2024 Patient Name: Amol Taylor : 1955 [x] Pt does not require skilled services due to: PT/OT order received and chart reviewed. AttemptedOT evaluation, however, patient non compliant. Patient with verbal outbursts stating that he does not need help and he is just simply not doing it. Per RN, patient at baseline. OT order will be discontinued at this time. Please re-consult if pt has a change or decline in function. Thank you for theopportunity to assist in the care of this patient. NAYE Winkler/Jie Date: 06/17/2024 * Carol Harman, ARA - 06/17/2024 8:13 AM EDT Patient very angry with PT and OT at this time and refusing therapy. * Dorota Woodson, PROGRAM DIR - PATTERN PAINTER - 06/17/2024 7:47 AM EDT Progress Note SUBJECTIVE: Patient seen for f/u of Small bowel obstruction (HCC). He resting in bed no distress. NG draining brown liquid. No complaints ROS: Constitutional: negative for fevers, [...] otherwise stated in HPI OBJECTIVE: Vitals: Vitals: 06/17/24 0642 BP: 131/89 Pulse: 79 Resp: 20 Temp: 97.2 F (36.2 C) SpO2: 94% Weight - Scale: 96.3 kg (212 lb 4.9 oz) Height: 177.8 cm (5' 10 ) Weight Wt Readings from Last 3 Encounters: 06/17/24 96.3 kg (212 lb 4.9 oz) 04/23/24 89.6 kg (197 lb 8 oz) 02/07/24 89.6 kg (197 lb 8 oz) Body mass index is 30.46 kg/m . 24HR INTAKE/OUTPUT: Intake/Output Summary (Last 24 hours) at 06/17/2024 0747 Last data filed at 06/17/2024 0513 Gross per 24 hour Intake 912.25 ml Output 2600 ml Net -1687.75 ml Exam: GEN: Awake, alert and oriented [...] Diagnostic Data: Complete Blood Count: Recent Labs 06/16/24 1004 06/17/24 0525 WBC 14.2* 12.2* RBC 4.75 4.21 HGB 15.1 13.5 HCT 46.4 42.2 MCV 97.7 100.2 MCH 31.8 32.1 MCHC 32.5 32.0 RDW 12.6 12.8 PLT 271 214 MPV 8.9 9.1 Last 3 Blood Glucose: Recent Labs 06/16/24 1004 06/17/24 0525 GLUCOSE 113* 97 Comprehensive Metabolic Profile: Recent Labs 06/16/24 1004 06/17/24 0525 NA 141 141 K 4.0 4.1 CL 103 112* CO2 26 22 BUN 25* 24* CREATININE 1.0 1.0 GLUCOSE 113* 97 CALCIUM 9.7 8.9 BILITOT 0.3 0.4 ALKPHOS 209* 173* AST 19 20 ALT 16 15 Urinalysis: Lab Results Component Value Date/Time NITRU POSITIVE 06/16/2024 03:50 PM COLORU Yellow 06/16/2024 03:50 PM PHUR 7.0 06/16/2024 03:50 PM PHUR 6.0 06/11/2023 03:28 PM WBCUA 0 TO 2 06/16/2024 03:50 PM RBCUA 5 TO 10 06/16/2024 03:50 PM MUCUS 1+ 06/16/2024 03:50 PM TRICHOMONAS NOT REPORTED 12/05/2018 06:15 AM YEAST NOT REPORTED 12/05/2018 06:15 AM BACTERIA 1+ 06/16/2024 03:50 PM LEUKOCYTESUR NEGATIVE 06/16/2024 03:50 PM UROBILINOGEN Normal 06/16/2024 03:50 PM BILIRUBINUR NEGATIVE 06/16/2024 03:50 PM GLUCOSEU NEGATIVE 06/16/2024 03:50 PM GLUCOSEU NEGATIVE 10/31/2010 12:33 PM KETUA NEGATIVE 06/16/2024 03:50 PM AMORPHOUS 2+ 06/12/2022 11:10 AM Lactic Acid: Lab Results Component Value Date/Time LACTA 0.6 06/12/2023 05:10 AM LACTA 1.3 09/02/2022 07:35 PM LACTA 1.3 06/21/2022 12:30 PM Troponin: Latest Reference Range & Units 06/16/24 16:45 06/16/24 19:20 Troponin, High Sensitivity 0 - 22 ng/L 12 12 Latest Reference Range & Units 05/02/23 19:47 06/11/23 10:15 Troponin, High Sensitivity 0 - 22 ng/L 12 17 Radiology/Imaging: XR CHEST (SINGLE VIEW FRONTAL) Final Result No significant interval change. XR ABDOMEN FOR NG/OG/NE TUBE PLACEMENT Final Result Nasogastric tube tip is in the stomach. CT ABDOMEN PELVIS W IV CONTRAST Additional Contrast? None Final Result 1. Small bowel obstruction with a transition point along the right paramidline of the anterior abdominal wall. 2. Peripherally calcified left-sided renal lesion measuring 4.1 x 1.6 x 3.5 cm. This may represent sequela of post treatment change. 3. Colonic diverticulosis. XR ABDOMEN (KUB) (SINGLE AP VIEW) (Results Pending) ASSESSMENT / PLAN: MEDICAL DECISION MAKING: Primary Problem(s): Small bowel obstruction (HCC) Differential diagnoses: SBO, ileus Condition is an acute or chronic illness or injury that poses threat to life or bodily function Treatment plan: NGT placed Gen Surg consult requested Up to chair and ambulate Imaging: Daily KUB Consider SBFT if not improvement Medications: Morphine prn pain IV fluids Medication Monitoring / High Risk Medications: Parenteral administration of controlled substance(s) Abnormal ECG with significant ST changes but normal initial troponin Treatment plan: Serial ECG's Trend troponin Medications: Pt NPO due to SBO at this time but may benefit from ASA, Statin once able to take PO Seizure disorder Condition is a chronic stable condition Treatment plan: Seizure / fall precautions in place Medications: Continue IV Keppra since PO meds on hold due to SBO IV Vimpat Nutrition status: at risk for malnutrition Dermatology Nurse Practitioner consult initiated I/O Daily weight Monitor Daily intake Nutritional Supplements as tolerated MALNUTRITION ASSESSMENT AND PLAN The following was documented by the Dietitian: Malnutrition Assessment Context of Malnutrition: Acute Illness (06/17/24730) Acute Illness - Energy Intake : Mild decrease in energy intake (06/17/24730) Acute Illness - Weight Loss : No weight loss (06/17/24730) Acute Illness - Body Fat Loss: No body fat loss (06/17/24730) Acute Illness - Muscle Mass Loss: No muscle mass loss (06/17/24730) Acute Illness - Fluid Accumulation : Mild (06/17/24730) Acute Illness - Fluid Accumulation Location: Extremities (06/17/24730) Acute Illness - Zoning Engineer Strength: Not Performed (06/17/24730) Acute Illness - Malnutrition Score: 1 (06/17/24730) Malnutrition Status: At risk for malnutrition (06/17/24730) I agree with the dietitian's malnutrition assessment. Medical Nutrition Therapy: N.p.o. Hospital Prophylaxis: DVT: Lovenox Stress Ulcer: H2 Klarissa Disposition: Shared decision making: MRDD no family at bedside Social determinants of health that may impact management: Resides in [facility] Code status: Full Code Disposition: Discharge plan is pending [facility] Advanced Care Planning documentation: [x] I have [...] the patient's medical record. [DOES NOT SATISFY [facility] PERFORMANCE] RAISA Mejia CNP , RAISA, PRODUCTION WOOD CRAFTSMAN-C [facility] Medicine 06/17/2024, 7:47 AM Cosigned by Yana Cornejo MD at 06/17/2024 1:02 PM EDT Associated attestation - Yana Cornejo MD - 06/17/2024 1:02 PM EDT Yana Cornejo M.D. Internal Medicine PA/PRODUCTION WOOD CRAFTSMAN Attestation Note Patient: Amol Taylor Date of Admission: 06/16/2024 9:36 AM Date of Evaluation: 06/17/2024 I personally evaluated and examined the patient [id number] in conjunction with the PA/PRODUCTION WOOD CRAFTSMAN and agree with the management and dispostition of the patient. Please see the PA/PRODUCTION WOOD CRAFTSMAN's note for full details.My gee findings are: SUBJECTIVE: Amol Taylor is a 69 y.o. male who was seen today along with Dorota Salter CNP for follow up of Small bowel obstruction (HCC). He states he's feeling fine and wants us to leave so he can go back to sleep . He denies abd pain. Per nursing staff no new issues overnight. Seems to be tolerating NGTwithout difficulty OBJECTIVE: Vitals: Temp: 97.2 F (36.2 C) BP: 131/89 Respirations: 18 Pulse: 85 SpO2: 95 % Weight Wt Readings from Last 3 Encounters: 06/17/24 96.3 kg (212 lb 4.9 oz) 04/23/24 89.6 kg (197 lb 8 oz) 02/07/24 89.6 kg (197 lb 8 oz) Body mass index is 30.46 kg/m . 24HR INTAKE/OUTPUT: Intake/Output Summary (Last 24 hours) at 06/17/2024 1257 Last data filed at 06/17/2024 0835 Gross per 24 hour Intake 2260.74 ml Output 2600 ml Net -339.26 ml Exam: GEN: Awake and alert. No acute distress . EYES: EOMI, pupils equal NECK: Supple. No [...] lesions. DATA: Complete Blood Count: Recent Labs 06/16/24 1004 06/17/24 0525 WBC 14.2* 12.2* RBC 4.75 4.21 HGB 15.1 13.5 HCT 46.4 42.2 MCV 97.7 100.2 RDW 12.6 12.8 PLT 271 214 Recent Labs 06/16/24 1004 06/17/24 0525 NEUTROABS 11.75* 8.72* LYMPHOPCT 10* 17* LYMPHSABS 1.40 2.06 MONOPCT 5 9 BASOPCT 0 0 IMMGRAN 0 0 CMP: Recent Labs 06/16/24 1004 06/17/24 0525 NA 141 141 K 4.0 4.1 CL 103 112* CO2 26 22 BUN 25* 24* CREATININE 1.0 1.0 GLUCOSE 113* 97 CALCIUM 9.7 8.9 BILITOT 0.3 0.4 ALKPHOS 209* 173* AST 19 20 ALT 16 15 UA: Lab Results Component Value Date COLORU Yellow 06/16/2024 WBCUA 0 TO 2 06/16/2024 RBCUA 5 TO 10 06/16/2024 LEUKOCYTESUR NEGATIVE 06/16/2024 GLUCOSEU NEGATIVE 06/16/2024 KETUA NEGATIVE 06/16/2024 PROTEINU 1+ (A) 06/16/2024 HGBUR 1+ (A) 06/16/2024 CASTUA NOT REPORTED 12/05/2018 BACTERIA 1+ (A) 06/16/2024 YEAST NOT REPORTED 12/05/2018 Lactic Acid: Recent Labs 06/16/24 1004 LACTSEPSIS 1.8 High Sensitivity Troponin: Recent Labs 06/16/24 1645 06/16/24 1920 TROPHS 12 12 Microbiology / Cultures: Results Procedure Component Value Units Date/Time Culture, Blood 1 [[id number]] Collected: 06/16/24 1004 Order Status: Completed Specimen: Blood Updated: 06/17/24 0723 Specimen Description .BLOOD Special Requests 10ML RT HAND Culture NO GROWTH 13 HOURS Imaging Data: XR ABDOMEN (KUB) (SINGLE AP VIEW) Result Date: 06/17/2024 EXAMINATION: ONE SUPINE XRAY VIEW(S) OF THE ABDOMEN 06/17/2024 7:21 am COMPARISON: CT abdomen [id number]/16/2024 HISTORY: ORDERING SYSTEM PROVIDED HISTORY: sbo TECHNOLOGIST PROVIDED HISTORY: sbo FINDINGS: Enteric tube projects past the GE junction with tip projecting over the gastric body. No significant small bowel dilatation. Gas is seen throughout the colon and rectum. Nonobstructive bowel gas pattern. XR CHEST (SINGLE VIEW FRONTAL) Result Date: 06/16/2024 EXAMINATION: ONE XRAY VIEW OF THE CHEST 06/16/2024 5:23 pm COMPARISON: 04/19/2024, 02/03/2024 HISTORY: ORDERING SYSTEM PROVIDED HISTORY: coarse lung sounds TECHNOLOGIST PROVIDED HISTORY: coarse lung sounds FINDINGS: The enteric tube courses off the field of view in the upper abdomen.The cardiac and m ediastinal contours appear unchanged. Shallow inflation. Streaky opacities in the lung bases again noted. No new airspace disease identified in the interval. No evidence for pneumothorax. Large amount of bowel gas in the left upper quadrant again demonstrated. Left vagal neurostimulator in place. No significant interval change. XR ABDOMEN FOR NG/OG/NE TUBE PLACEMENT Result Date: 06/16/2024 EXAMINATION: ONE SUPINE XRAY VIEW(S) OF THE ABDOMEN 06/16/2024 1:56 pm COMPARISON: CT 06/16/2024 HISTORY: ORDERING SYSTEM PROVIDED HISTORY: Confirmation of course of NG/OG/NE tube and location of tip of tube TECHNOLOGIST PROVIDED HISTORY: Confirmation of course of NG/OG/NE tube and location of tip of tube Portable?->Yes FINDINGS: Nasogastric tube tip appears to be in the dilated stomach within the left upper abdomen. There are gas-filled mildly dilated small bowel loops in the visualized mid abdomen. Generator pack in the left chest wall. Nasogastric tube tip is in the stomach. CT ABDOMEN PELVIS W IV CONTRAST Additional Contrast? None Result Date: 06/16/2024 EXAMINATION: CT OF THE ABDOMEN AND PELVIS WITH CONTRAST 06/16/2024 11:39 am TECHNIQUE: CT of the abdomen and pelvis was performed with the administration of intravenous contrast. Multiplanar reformatted images are provided for review. Automated exposure control, iterative reconstruction, and/or weight based adjustment of the mA/kV was utilized to reduce the radiation dose to as low as reasonably achievable. COMPARISON: 04/19/2024, 02/02/2024. HISTORY: ORDERING SYSTEM PROVIDED HISTORY: Bowel obstruction TECHNOLOGIST PROVIDED HISTORY: Bowel obstruction Decision Support Exception - unselect if not a suspected or confirmed emergency medical condition->Emergency Medical Condition (MA) FINDINGS: Lower Chest: The heart size is normal. Coronary artery vascular calcifications are noted. There iselevation of the left hemidiaphragm with asymmetric atelectasis in the left lung base. There is no pleural effusion. Organs: The liver, gallbladder, adrenal glands, pancreas, and spleen are unremarkable. There is a peripherally calcified left-sided renal lesion measuring 4.1 x 1.6 x 3.5 cm. This may represent sequela of post treatment change. There is no hydronephrosis. GI/Bowel: There is marked distension of the stomach. There is a small bowel obstruction with a transition point along the right paramidline of the anterior abdominal wall, axial image 139. The distal small bowel loops are decompressed. There are several scattered colonic diverticula. The appendix is normal. Pelvis: The bladder is partially distended with urine. The prostate and seminal vesicles are unremarkable. No inguinal or pelvic sidewall adenopathy. Peritoneum/Retroperitoneum: Atherosclerotic plaque is noted in the aorta and its branch vessels. There is no retroperitoneal adenopathy. Bones/Soft Tissues: There are no areas of abnormal soft tissue swelling. Degenerative changes are noted in the spine. Diffuse idiopathic skeletal hyperostosis. There is no fracture. 1. Small bowel obstruction with a transition point along the right paramidline of the anterior abdominal wall. 2. Peripherally calcified left-sided renal lesion measuring 4.1 x 1.6 x 3.5 cm. This mayrepresent sequela of post treatment change. 3. Colonic diverticulosis. ASSESSMENT: Principal Problem: Small bowel obstruction (HCC) Active Problems: Abnormal ECG Sinus tachycardia S/P placement of VNS (vagus nerve stimulation) device Seizure disorder (HCC) MR (mental retardation), severe Resolved Problems: * No resolved hospital problems. * PLAN: I agree with the assessment, plan and medical decision making documentation as outlined by APC: Condition is improving Treatment plan: Continue NGT decompression Cardiology consult appreciated - discussed with Dr. Modi Imaging: Repeat abd xray this AM shows improving bowel gas pattern with air into the colon ECG's improving Labs: troponin negative x 2 Daily CBC with diff, BMP ordered Medications: Continue Morphine prn Continue IV Keppra for seizure prevention Disposition: Discharge plan is pending [facility] VISIT, PHYSICIAN ATTESTATION: [id number] I personally performed a substantive part of the MDM during the patient's visit. I personally evaluated and examined the patient. I personally made or approved the documented management plan and acknowledge its risk of complications. Test interpretation: My independent EKG interpretation: significant ST segment changes on initial ECGs which improved after repeat My independent imaging interpretation: CT abd shows dilated bowel loops consistent with SBO . Repeat abd xray today shows air getting through to colon Management and/or test interpretation discussed with OTONIEL Zuñiga MD , M.D. 06/17/2024 12:57 PM * Julia Mcelroy - 06/17/2024 7:13 AM EDT Comprehensive Nutrition Assessment Type and Reason for Visit: Initial Nutrition Recommendations/Plan: Monitor NPO duration. Monitor GI viability. Malnutrition Assessment: Malnutrition Status: At risk for malnutrition (06/17/24 0731) Context: Acute Illness Findings of the 6 clinical characteristics of malnutrition: Energy Intake: Mild decrease in energy intake Weight Loss: No weight loss Body Fat Loss: No body fat loss Muscle Mass Loss: No muscle mass loss Fluid Accumulation: Mild Extremities Zoning Engineer Strength: Not Performed Nutrition Assessment: Inadequate oral intake r/t altered GI function aeb NPO due to small bowel obstruction. Pt is on a dysphagia 1 diet (pureed with nectar thick liquids).When entering the room pt expressed to leave him alone as he's in bed. When entering pt room discussed comfortably with NGT stating he is fine . Labs reviewed with elevated BUN (24) and no edema present. Education is not appropriate for pt. Nutrition Related Findings: active bowel sounds, non pitting RLE and LLE edema Wound Type: None Current Nutrition Intake & Therapies: Average Meal Intake: NPO Average Supplements Intake: None Ordered Diet NPO Anthropometric Measures: Height: 177.8 cm (5' 10 ) [place] Body Weight (IBW): 166 lbs (75 kg) Admission Body Weight: 96.3 kg (212 lb 4.9 oz) Current Body Weight: 96.3 kg (212 lb 4.9 oz), 127.9 % IBW. Weight Source: Bed scale Current BMI (kg/m2): 30.5 Usual Body Weight: 79.4 kg (175 lb 0.7 oz) (based on weight history stable weight gain for a year) % Weight Change (Calculated): 21.3 Weight Adjustment For: No Adjustment BMI Categories: Obese Class 1 (BMI 30.0-34.9) Hematology: Recent Labs 06/16/24 1004 06/17/24 0525 WBC 14.2* 12.2* HGB 15.1 13.5 HCT 46.4 42.2 Chemistry: Recent Labs 06/16/24 1004 06/17/24 0525 NA 141 141 K 4.0 4.1 CL 103 112* CO2 26 22 GLUCOSE 113* 97 BUN 25* 24* CREATININE 1.0 1.0 CALCIUM 9.7 8.9 Recent Labs 06/16/24 1004 06/17/24 0525 AST 19 20 ALT 16 15 ALKPHOS 209* 173* BILITOT 0.3 0.4 LIPASE 45 -- Lab Results Component Value Date VITD25 28.6 (L) 10/31/2018 Estimated Daily Nutrient Needs: Energy Requirements Based On: Kcal/kg Weight Used for Energy Requirements: Current Energy (kcal/day): 2469-6264 (25-28 kcal/kg) Weight Used for Protein Requirements: [place] Protein (g/day): 75-90 (1.0-1.2g/kg) Method Used for Fluid Requirements: 1 ml/kcal Fluid (ml/day): 2552-3413 (1ml/kcal) Nutrition Diagnosis: Inadequate oral intake related to Altered GI structure as evidenced by NPO or clear liquid status due to medical condition Nutrition Interventions: Food and/or Nutrient Delivery: Continue NPO Nutrition Education/Counseling: Education/Counseling not appropriate Coordination of Nutrition Care: Continue to monitor while inpatient Goals: Goals: by next RD assessment, Maintain adequate nutrition status Type of Goal: New goal Previous Goal Met: New Goal Nutrition Monitoring and Evaluation: Behavioral-Environmental Outcomes: Knowledge or Skill Physical Signs/Symptoms Outcomes: Biochemical Data, GI Status, Nutrition Focused Physical Findings,Fluid Status or Edema Discharge Planning: Continue current diet Julia Mcelroy Contact: [phone] Cosigned by Rinku Montalvo, GEORGINA, LD at 06/17/2024 12:48 PM EDT * Carol Harman, ARA - 06/17/2024 6:42 AM EDT Entered patient's room for morning vital signs and head to toe assessment. Patient resting in the bed at this time. A&O x2 (person and place), calm, and cooperative. Patient denies of pain at this time and appears to be comfortable. Vital signs and head to toe assessment completed at this time,see flowsheets for more details. NG tube in place and connected to low intermittent suction. NG tube at 70 cm and retaped at this time. Patient denies no more needs at this time. Call light within reach. Bed alarm on. Bed wheels locked. Bed in lowest position. Side rails up x2. * Alesha Galicia RN - 06/16/2024 6:17 PM EDT Patient A&O x4, calm, and cooperative. Vital signs and head to toe assessment completed at thistime, see flowsheets for details. Patient was briefly educated on medications due tonight. Patient denies needs at this time. Call light within reach. Bedside table within reach, bed in lowest position, bed/chair wheels locked, and alarm is set. Care ongoing. * Donna Jernigan, PT - 06/16/2024 4:32 PM EDT [facility] Inpatient/Observation/Outpatient Rehabilitation Date: 06/16/2024 Patient Name: Amol Taylor [x] Inpatient Acute/Observation [] Outpatient : 1955 [x] Evaluation held by RN/Provider/Physical Therapist due to: [] High Heart Rate [] High Blood Pressure [] Orthopedic Consult [] Hgb < 7 [x] Other: Testing for a possible [place] Therapist/Sound Art Instructor will attempt to see this patient, at our earliest opportunity. Donna Jernigan PT, DPT, OCS, Cert. DN Date: 06/16/2024 Cosigned by Yana Cornejo MD at 06/16/2024 6:42 PM EDT * Melany Rios [facility] - 06/16/2024 4:06 PM EDT RESPIRATORY ASSESSMENT PROTOCOL Patient Name: Amol Taylor Room#: 0302/0302-01 : 1955 Admitting diagnosis: Small bowel obstruction (HCC) [K56.609] SBO (small bowel obstruction) (HCC) [K56.609] Medical History: Past Medical History: Diagnosis Date Arthritis BPH (benign prostatic hyperplasia) Dysphagia GERD (gastroesophageal reflux disease) Hearing loss HLD (hyperlipidemia) Insomnia MR (mental retardation) Periorbital cellulitis SBO (small bowel obstruction) (HCC) Seizures (HCC) Epilepsy Ventral hernia Vitamin D deficiency PATIENT ASSESSMENT LABORATORY DATA Hematology: Lab Results Component Value Date/Time WBC 14.2 06/16/2024 10:04 AM RBC 4.75 06/16/2024 10:04 AM RBC 3.43 10/31/2010 11:48 AM HGB 15.1 06/16/2024 10:04 AM HCT 46.4 06/16/2024 10:04 AM PLT 271 06/16/2024 10:04 AM PLT 206 10/31/2010 11:48 AM Chemistry: No results found for: PHART , XDN9IMW , PO2ART , O4OCHIPK , AVQ3DIS , PBEA , NBEA VITALS Pulse: (!) 117 Respirations: 20 BP: (!) 155/90 SpO2: 96 % Temp: 97.7 F (36.5 C) SKIN COLOR [x] Normal [] Pale [] Dusky [] Cyanotic RESPIRATORY PATTERN [x] Normal [] Dyspnea [] Piero-Fajardo [] Kussmaul [] Biots AMBULATORY [] Yes [] No [x] With Assistance Patient Acuity 0 1 2 3 4 Score Level of Consciousness (LOC) [x] Alert & Oriented or Pt normal LOC [] Confused;follows directions [] Confused & uncooper-ative [] Obtunded [] Comatose 0 Respiratory Rate (RR) [x] Reg. rate & pattern. 12 - 20 bpm [] Increased RR. Greater than 20 bpm [] SOB w/ exertion or RR greater than 24 bpm [] Access- ory muscle use at rest. Abn. resp. [] SOB at rest. 0 Bilateral Breath Sounds (BBS) [] Clear [] Diminish-ed bases [] Diminish-ed t/o, or rales [x] Sporadic, scattered wheezes or rhonchi [] Persistentwheezes and, or absent BBS 3 Cough [] Strong, effective, & non-prod. [x] Effective & prod. Less than 25 ml (2 TBSP) over past 24 hrs [] Ineffective & non-prod to less than 25 ML over past 24 hrs [] Ineffective and, or greater than 25 ml sputum prod. past 24 hrs. [] Nonspon- taneous; Requires suctioning 0 Pulmonary History (PULM HX) [x] No smoking and no chronic pulmonary history [] Former smoker. Quit over 12 mos. ago [] Current smoker or quit w/ in 12 mos [] Pulm. History and, or 20 pk/yr smoking hx [] Admitted w/ acute pulm. dx and, or has been admitted w/ pulm. dx 2 or more times over past 12 mos 0 Surgical History this Admit (SURG HX) [x] No surgery [] General surgery [] Lower abdominal [] Thoracic or upper abdominal [] Thoracic w/ pulm. disease 0 Chest X-Ray (CXR)/CT Scan [x] Clear or not applicable [] Not available [] Atelectasis or pleural effusions [] Localized infiltrate or pulm. edema [] Con-solidated Infiltrates, bilateral, or in more than 1 lobe 0 TOTAL ACUITY: 4 CARE PLAN If Acuity Level is 2, 3, or 4 in any of the following: [x] BILATERAL BREATH SOUNDS (BBS) [] PULMONARY HISTORY (PULM HX) [] Respiratory Rate (RR) Goal: Improve respiratory functions in patients with airway disease and decrease WOB [x] AEROSOL PROTOCOL Total Acuity: 14-28 [] Secondary Assessment in 24 hrs Total Acuity: 9-13 [] Secondary Assessment in 24 hrs Total Acuity: 4-8 [x] Secondary Assessment in 24 hrs Total Acuity: 0-3 [] Secondary Assessment in 48 hrs HHN AEROSOL THERAPY with [physician-ordered bronchodilator(s)] q 4 & Albuterol PRN q2 hrs. Breath-Actuated Neb if BBS Acuity = 4, and pt. can use MP. Notify physician if condition deteriorates. HHN AEROSOL THERAPY with [physician-ordered bronchodilator(s)] QID and Albuterol PRN q4 hrs. Breath-Actuated Neb if BBS Acuity = 4, and pt. can use MP. Notify physician if condition deteriorates. MDI THERAPY with 2 actuations of [physician-ordered bronchodilator(s)] via spacer TID Albuterol and PRN q4 hrs. If unable to utilize MDI: HHN [physician-ordered bronchodilator(s)] TID and Albuterol PRN q4 hrs. Notify physician if condition deteriorates. MDI THERAPY with [physician-ordered bronchodilator(s)] via spacer TID PRN. If unable to utilize MDI: HHN [physician-ordered bronchodilator(s)] TID PRN. Notify physician if condition deteriorates. If Acuity Level is 2, 3, or 4 in any of the following: [] COUGH [] SURGICAL HISTORY (SURG HX) [] CHEST XRAY (CXR) Goal: Improvement in sputum mobilization in patients with ineffective airway clearance. Reverse atelectasis. [] Bronchopulmonary Hygiene Protocol Total Acuity: 14-28 [] Secondary Assessment in 24 hrs Total Acuity: 9-13 [] Secondary Assessment in 24 hrs Total Acuity: 4-8 [] Secondary Assessment in 24 hrs Total Acuity: 0-3 [] Secondary Assessment in 48 hrs METANEB QID with [physician-ordered bronchodilator(s)] if CXR Acuity = 4; otherwise: PD&P, Oscillatory Therapy, or Vest QID & PRN AND PEP QID & PRN NT Sxn PRN for ineffective cough METANEB QID with [physician-ordered bronchodilator(s)] if CXR Acuity = 4; otherwise: PD&P, Oscillatory Therapy or Vest QID & PRN AND PEP QID & PRN NT Sxn PRN for ineffective cough PD&P, Oscillatory Therapy, or Vest TID & PRN AND PEP TID & PRN Instruct patient to self-perform IS q1hr WA If Acuity Level is 2 or above in the following: [] PULMONARY HISTORY (PULM HX) Goal: Assist patient in quitting smoking to slow or stop the progression of lung disease. [] Smoking Cessation Protocol SMOKING CESSATION EDUCATION provided according to policy [id number]: (jeanette with an X) ____Yes ____ No ____ NA Smoking Cessation Booklet given: ____Yes ____No ____Patient Refused documented in this encounterBon [facility] Discharge instructions* Discharge Instr - JOYCE* Marilu Mota, ARA - 06/19/2024 9:11 AM EDT Continuity of Care Form Patient Name: Amol Taylor : 1955 Admit date: 06/16/2024 Discharge date: 06/19/2024 Code Status Order: Full Code Advance Directives: Admitting Physician: Yana Cornejo MD PCP: Carson Dior MD Discharging Nurse: Marilu BHATT Discharging Hospital Unit/Room#: 0302/0302-01 Discharging Unit Emergency Contact: Extended Emergency Contact Information Primary Emergency Contact: Susan Smith Address: [address] [place] [address] of [place] Relation: Legal Guardian Secondary Emergency Contact: Eliazar [...] Problems: Patient Active Problem List Diagnosis Code MR (mental retardation), severe F72 SBO (small bowel obstruction) ([facility]) K56.609 AFTAB (obstructive sleep apnea) G47.33 Intellectual disability F79 S/P placement of VNS (vagus nerve stimulation) device Z96.89 Dysphagia R13.10 Seizure disorder ([facility]) G40.909 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 Small bowel obstruction ([facility]) K56.609 Abnormal ECG R94.31 Sinus tachycardia R00.0 Isolation/Infection: Isolation No Isolation Patient Infection Status None to display Nurse Assessment: Last Vital Signs: BP 130/72 Pulse 67 Temp 97 F (36.1 C) (Temporal) Resp 20 Ht 1.778 m (5' 10 ) Wt 93.6 kg (206 lb 4.8 oz) SpO2 96% BMI 29.60 kg/m Last documented pain score (0-10 scale): Last Weight: Wt Readings from Last 1 Encounters: 06/19/24 93.6 kg (206 lb 4.8 oz) Mental Status: Alert, oriented to person only IV Access: - PICC - site R Upper Arm, insertion date: 06/17/2024 Nursing Mobility/ADLs: Walking Dependent Transfer Dependent Bathing Dependent Dressing Dependent Toileting Dependent Feeding Dependent Press Loader Dependent Med Delivery crushed and given in applesauce Wound Care Documentation and Therapy: Elimination: Continence: Bowel: Yes Bladder: Yes Urinary Catheter: None Colostomy/Ileostomy/Ileal Conduit: No Date of Last BM: 06/18/2024 Intake/Output Summary (Last 24 hours) at 06/19/2024 0924 Last data filed at 06/19/2024 0502 Gross per 24 hour Intake 3621.66 ml Output -- Net 3621.66 ml I/O last 3 completed shifts: In: 5458.1 [P.O.:1200; I.V.:4158.1; IV Piggyback:100] Out: 350 [Emesis/NG output:350] Safety Concerns: At Risk for Falls, Seizure precautions Impairments/Disabilities: MRDD Nutrition Therapy: Current Nutrition Therapy: - Oral Diet: Dysphagia - Pureed Routes of Feeding: Oral Liquids: Honey Thick Liquids Daily Fluid Restriction: no Last Modified Barium Swallow with Video (Video Swallowing Test): not done Treatments at the Time of Hospital Discharge: Respiratory Treatments: n/a Oxygen Therapy: is not on home oxygen therapy. Ventilator: - No ventilator support Rehab Therapies: Physical Therapy and Occupational Therapy Weight Bearing Status/Restrictions: No weight bearing restrictions Other Medical Equipment (for information only, NOT a DME order): wheelchair Other Treatments: n/a Patient's personal belongings (please select all that are sent with patient): None RN SIGNATURE: CASE MANAGEMENT/SOCIAL WORK SECTION Inpatient Status Date: 06/16/24 Readmission Risk Assessment Score: [facility] RISK OF UNPLANNED READMISSION 2.0 20.6 Total Score Discharging to Facility/ Agency Name: [facility] Address:[address] [place] [id number] Fax: Dialysis Facility (if applicable) Name: Address: Dialysis Schedule: Phone: Fax: Environmental Technical Officer/Staff Certified Nurse Midwife signature: PHYSICIAN SECTION Prognosis: Fair Condition at Discharge: Stable Rehab Potential (if transferring to Rehab): Fair Recommended Labs or Other Treatments After Discharge: na Physician Certification: I certify the above information and transfer of Amol Taylor is necessaryfor the continuing treatment of the diagnosis listed and that he requires Intermediate/Mental Retardation/Developmental Disabilities Care for greater 30 days. Update Admission H&P: No change in H&P PHYSICIAN SIGNATURE: [facility] Instructions* Patient Instructions* Trace Woodruff RN - 05/22/2024 1:22 PM EDT -- encourage lots of water intake; ideally 64-75 oz daily -- monitor his bowels and keep them soft to avoid constipation and ultimately another bowel obstructions -- continue pantoprazole for the acid reflux -- continue Linzess and senna for the bowels. -- if he starts to get constipated, he needs to take Miralax 17 g (one capful) once to twice daily to avoid the constipation that likely triggers the small bowel obstruction [facility] History of Present illness Narrative* Uma Clark MD - 05/22/2024 1:00 PM EDT FOLLOW UP OFFICE VISIT REASON FOR VISIT: Follow up HPI: Amol Taylor is a 69 year old male who presents for follow up today for follow up accompanied by acare taker and patient is in the wheelchair and was admitted since last visit with me at [facility] in [place] with another partial SBO on 04/19/24 requiring NG tube placement for 3-4 days and no further problems since that time with some constipation preceding the episode. Bowel movements are nor mal. IMPRESSION/DISCUSSION/PLAN: #1.) Recurrent partial SBO over the years per sister which per her he has been in the hospital numerous times and has required NG tube placements each time and many times (up to 6-7 per sister) has had lysis of adhesions and overall clinically he is stable at this time fortunately with no problems with constipation. Recommendations: - Maintain regular stools and ideally prevent constipation with increasing water (which is thickened) to 80 ounces daily and continue linzess, miralax and senokot. - Will attempt to retrieve last colonoscopy done at [facility] by Dr. Christiansen (sister thinks he did last colonoscopy) several years ago. - Continue protonix. #2.) History of OPD currently on thickened liquids with continued intermittent coughing associated with eating in which repeat evaluation and assessment of OPD to be undertaken with MBS. Follow up 6 months. Small bowel follow through 06/21/2023: Contrast passage through dilated loops of small bowel and into the colon in the right upper quadrant by 4 hours. Small bowel follow through 06/13/2023: Findings compatible with ileus pattern. Acute Abd Series 06/13/23: 1. No acute cardiopulmonary process. 2. Scattered gas-filled large/small bowel loops throughout the abdomen and pelvis with several mildly distended gas-filled small bowel loops up to 4 cm. Findings may represent ileus versus partial/intermittent SBO. CTAP 06/11/2023: 1. Small bowel distension without focal transition point identified. There is also a mild amount of liquid stool in the colon. These findings are most suggestive of ileus and diarrheal process versus partial obstructing process. 2. Additional chronic and benign findings, as described. MBS 04/16/2023: IMPRESSION: 1. Abnormal swallow study as noted above with significant stasis in the hypopharynx at the level ofthe large osteophyte at C5/6 vertebrae. 2. Please correlate with dedicated speech pathology report for additional details and recommendations. ALLERGIES Allergen Reactions Bleach [Other] Clindamycin Rash Penicillins Swelling PAST MEDICAL HISTORY Diagnosis Date Closed fracture of shaft of fibula 11/24/2014 Mental retardation Nontoxic uninodular goiter stable Seizure disorder (HCC) follows with neuro Kelton Hagen PAST SURGICAL HISTORY Procedure Laterality Date INSERT PICC 05/11/2014 LAP SM BOWEL RESECTION W/ANASTOMOSIS, SNGL 10/2013 fascia closed, skin open for SBO MIDLINE INSERTION/CONSULT 05/04/2014 MIDLINE INSERTION/CONSULT 08/08/2016 PAST SURGICAL HISTORY OF 7 months old abd surgery PAST SURGICAL HISTORY OF fracture clavicle PAST SURGICAL HISTORY OF VAGAL NERVE STIMULATOR for seizure Px PAST SURGICAL HISTORY OF 05/05/14 Exploratory laparotomy, small bowel resection and anastomosis , extensive lysis of adhesions FAMILY HISTORY Problem Relation Age of Onset Ischemic Heart Disease Mother other (Thyroid Ca) Mother other (Multiple Myeloma) Mother other (DM) Mother other (htn) Mother other (Lung Ca) Father smoker other (A fib) Brother other (Heart attack) Brother other (HTN) Sister other (DM) Sister other (leukemia) Maternal Uncle other (pancreatic Ca) Maternal Aunt Ischemic Heart Disease Maternal Grandfather Alzheimer's Disease Maternal Grandmother other (HTN) Maternal Grandmother other (dm) Paternal Grandmother Social History Tobacco Use Smoking status: Never Smokeless tobacco: Never Substance Use Topics Alcohol use: No Drug use: No Current Outpatient Medications Medication Sig albuterol HFA (PROVENTIL HFA, VENTOLIN HFA) 90 mcg/actuation inhaler Inhale 2 Puffs as instructed every 4 hours as needed. benzonatate (TESSALON PERLE) 100 mg capsule Take 100 mg by mouth. hydrOXYzine pamoate (VISTARIL) 25 mg capsule Take 25 mg by mouth three times a day as needed. MELATONIN ORAL Take by mouth. carbamide peroxide (EAR DROPS) 6.5 % otic solution 4 Drops once every month. linaclotide (LINZESS) 145 mcg capsule Take 145 mcg by mouth daily at 6 am. Take capsule on an emptystomach at least 30 minutes before a meal at the same time each day. Capsule should be swallowed whole. DO NOT chew or crush MAGNESIUM OXIDE ORAL Take 400 mg by mouth once daily. ONDANSETRON HCL ORAL Take 4 mg by mouth. calcium carbonate (FLAVOR CHEWS ANTACID ORAL) Take 500 mg by mouth. latanoprost (XALATAN) 0.005 % ophthalmic solution 1 Drop daily at bedtime. levETIRAcetam (KEPPRA) 750 mg tablet Take 750 mg by mouth two times a day. Sennosides (SENNA) 8.6 mg cap Take by mouth. cyanocobalamin (VITAMIN B-12) 1,000 mcg tab Take 1,000 mcg by mouth once daily. ergocalciferol, vitamin D2, (VITAMIN D2 ORAL) Take 1,000 Units by mouth. tamsulosin ER (FLOMAX) 0.4 mg cap Take 1 capsule by mouth twice daily. 30 minutes after the same meal each day. polyethylene glycol 3350 (MIRALAX, GLYCOLAX) 17 gram packet Take 1 Packet by mouth once daily as needed (constipation). levETIRAcetam (KEPPRA) 1,000 mg tablet Take 1,500 mg by mouth twice daily. lacosamide (VIMPAT) 150 mg tab Take by mouth twice daily. diazepam (DIASTAT) 20 mg crtg by RECTAL route as needed (for cluster seizure lasting more than 15 minutes). finasteride (PROSCAR) 5 mg tablet Take 1 tablet by mouth once daily. calcium carbonate (CALCIUM 600) 600 mg (1,500 mg) tab Take 1 tablet by mouth twice daily. Loperamide HCl (IMODIUM) 2 mg tab Take 1 tablet by mouth as needed (Patient takes two capsules on onset, one capsule after each loose stool and up to 4 in 24 hours). inulin-chromium picolinate (FIBER SELECT GUMMIES) 2-100 gram-mcg chew Patient takes 5mg gummies, once gummy twice daily Ibuprofen 200 mg cap Take 2 capsules by mouth every 4 hours (for headaches, muscle pain or fever over 100 degrees) ondansetron orally disintegrating (ZOFRAN ODT) 4 mg disintegrating tablet Take 1 tablet by mouth every 8 hours as needed. lorazepam(ATIVAN 0.5 MG TAB) Take one(1) tablet every eight(8) hours as needed for seizures lamotrigine(LAMICTAL 200 MG TAB) take two 2 tablets in am and three(3)tablets in pm PRIMIDONE 250 MG TAB Take 250 mg by mouth once daily. also1 1/2 at bed time No current facility-administered medications for this visit. REVIEW OF SYSTEMS: Cannot be obtained PHYSICAL EXAMINATION: BP 130/77 Pulse 85 Resp 18 General appearance: Well appearing, alert, in no acute distress, well-hydrated, well nourished. Eyes: Anicteric sclera. Pupils are equally round and reactive to light. Extraocular movements are intact. Oropharynx: Lips, mucosa, and tongue normal, teeth and gums normal, oropharynx normal Lungs: Lungs clear to auscultation. No wheezing, rhonchi, rales Heart: RRR without murmur, gallop, or rubs. No ectopy Abdomen: Normal abdominal exam, Abdomen soft, non-tender. Bowel sounds normal. No masses, organomegaly Extremities: No deformities, edema, skin discoloration, clubbing or cyanosis. Good capillary refill. Neuro: Patient in wheelchair. Reflexes normal and symmetric. Sensation grossly intact. Rectal: Examination deferred IMPRESSION/DISCUSSION/PLAN: Recurrent partial SBO's with last one 04/19/24 at [facility] with recommendation beingthat of implementing miralax 17 grams at the time that he develops constipation as this seems to bethe precipitating factor to the onset of the recurrent partial SBO. Continue bowel regimen with senna and linzess. Follow up 6 months. Uma Clark MD documented in this encounterAcmc [facility]03-20-2025 NoteHNO ID: [id number] Author: UMA CLARK MD Service: ? Author Type: Physician Type: Progress Notes Filed: 05/22/2024 13:35 Note Text: FOLLOW UP OFFICE VISIT REASON FOR VISIT: Follow up HPI: Amol Taylor is a 69 year old male who presents for follow up today for follow up accompanied by a manager care management and patient is in the wheelchair and was admitted since last visit with me at [facility] in [place] with another partial SBO on 04/19/24 requiring NG tube placement for 3-4 days and no further problems since that time with some constipation preceding the episode. Bowel movements are normal. IMPRESSION/DISCUSSION/PLAN: #1.) Recurrent partial SBO over the years per sister which per her he has been in the hospital numerous times and has required NG tube placements each time and many times (up to 6-7 per sister) has had lysis of adhesions and overall clinically he is stable at this time fortunately with no problems with constipation. Recommendations: - Maintain regular stools and ideally prevent constipation with increasing water (which is thickened) to 80 ounces daily and continue linzess, miralax and senokot. - Will attempt to retrieve last colonoscopy done at [facility] by Dr. Christiansen (sister thinks he did last colonoscopy) several years ago. - Continue protonix. #2.) History of OPD currently on thickened liquids with continued intermittent coughing associated with eating in which repeat evaluation and assessment of OPD to be undertaken with MBS. Follow up 6 months. Small bowel follow through 06/21/2023: Contrast passage through dilated loops of small bowel and into the colon in the right upper quadrant by 4 hours. Small bowel follow through 06/13/2023: Findings compatible with ileus pattern. Acute Abd Series 06/13/23: 1. No acute cardiopulmonary process. 2. Scattered gas-filled large/small bowel loops throughout the abdomen and pelvis with several mildly distended gas-filled small bowel loops up to 4 cm. Findings may represent ileus versus partial/intermittent SBO. CTAP 06/11/2023: 1. Small bowel distension without focal transition point identified. There is also a mild amount of liquid stool in the colon. These findings are most suggestive of ileus and diarrheal process versus partial obstructing process. 2. Additional chronic and benign findings, as described. MBS 04/16/2023: IMPRESSION: 1. Abnormal swallow study as noted above with significant stasis in the hypopharynx at the level of the large osteophyte at C5/6 vertebrae. 2. Please correlate with dedicated speech pathology report for additional details and recommendations. ALLERGIES Allergen Reactions Bleach [Other] Clindamycin Rash Penicillins Swelling PAST MEDICAL HISTORY Diagnosis Date Closed fracture of shaft of fibula 11/24/2014 Mental retardation Nontoxic uninodular goiter stable Seizure disorder (HCC) follows with neuro Kelton Hagen PAST SURGICAL HISTORY Procedure Laterality Date INSERT PICC 05/11/2014 LAP SM BOWEL RESECTION W/ANASTOMOSIS, SNGL 10/2013 fascia closed, skin open for SBO MIDLINE INSERTION/CONSULT 05/04/2014 MIDLINE INSERTION/CONSULT 08/08/2016 PAST SURGICAL HISTORY OF 7 months old abd surgery PAST SURGICAL HISTORY OF fracture clavicle PAST SURGICAL HISTORY OF VAGAL NERVE STIMULATOR for seizure Px PAST SURGICAL HISTORY OF 05/05/14 Exploratory laparotomy, small bowel resection and anastomosis , extensive lysis of adhesions FAMILY HISTORY Problem Relation Age of Onset Ischemic Heart Disease Mother other (Thyroid Ca) Mother other (Multiple Myeloma) Mother other (DM) Mother other (htn) Mother other (Lung Ca) Father smoker other (A fib) Brother other (Heart attack) Brother other (HTN) Sister other (DM) Sister other (leukemia) Maternal Uncle other (pancreatic Ca) Maternal Aunt Ischemic Heart Disease Maternal Grandfather Alzheimer's Disease Maternal Grandmother other (HTN) Maternal Grandmother other (dm) Paternal Grandmother Social History Tobacco Use Smoking status: Never Smokeless tobacco: Never Substance Use Topics Alcohol use: No Drug use: No Current Outpatient Medications Medication Sig albuterol HFA (PROVENTIL HFA, VENTOLIN HFA) 90 mcg/actuation inhaler Inhale 2 Puffs as instructed every 4 hours as needed. benzonatate (TESSALON PERLE) 100 mg capsule Take 100 mg by mouth. hydrOXYzine pamoate (VISTARIL) 25 mg capsule Take 25 mg by mouth three times a day as needed. MELATONIN ORAL Take by mouth. carbamide peroxide (EAR DROPS) 6.5 % otic solution 4 Drops once every month. linaclotide (LINZESS) 145 mcg capsule Take 145 mcg by mouth daily at 6 am. Take capsule on an empty stomach at least 30 minutes before a meal at the same time each day. Capsule should be swallowed whole. DO NOT chew or crush MAGNESIUM OXIDE ORAL Take 400 mg by mouth once daily. ONDANSETRON HCL ORAL Take 4 mg by mouth. calcium carbonate (FLAVOR (more content not included)...[facility]03-03-2025 Telephone encounter Note* Telephone Encounter - Emma Luz NP - 05/05/2024 1:52 PM EST Error [facility] Work Phone: [phone]) 769-511803-03-2025 Miscellaneous Notes* Telephone Encounter - Emma Luz NP - 05/05/2024 1:52 PM EST Error documented in this [facility]02-24-2025 Telephone encounter Note* Telephone Encounter - Marilu Ballesteros MA - 04/28/2024 10:42 AM EST Patient needs a refill of Vimpat sent to [facility] pharmacy. Ra says he has about 3 days left of medication. [facility] [id number] Miscellaneous Notes* Telephone Encounter - Marilu Ballesteros MA - 04/28/2024 10:42 AM EST Patient needs a refill of Vimpat sent to [facility] pharmacy. Ra says he has about 3 days left of medication. [facility] [id number] History of Present illness Narrative* Georgie Serra, ARA - 04/23/2024 2:41 PM EST Patient leaving floor at this time via [employer] transportation. Belongings sent with patient. * Gisselle Thakkar PTA - 04/23/2024 12:53 PM EST Physical Therapy Facility/Department: [facility] MED SURG Daily Treatment Note NAME: Amol Taylor : 1955 Date of Service: 04/23/2024 Discharge Recommendations: Continue to assess pending progress Patient Diagnosis(es): The encounter diagnosis was Intestinal obstruction, unspecified cause, unspecified whether partial or complete (HCC). Assessment Assessment: Pt performed supine exer x15 B LE in all available planes of motion, therapist having to encourage pt for maintaining on task as pt continues to fall alseep. Did not perform transfers at this time per nurse request. Activity Tolerance: Treatment limited secondary to decreased cognition Plan Physical Therapy Plan General Plan: 2 times a day 7 days a week Specific Instructions for Next Treatment: 1x/daily on weekends and holidays Current Treatment Recommendations: Strengthening;Home exercise program;Balance training;Gait training;Therapeutic activities;Safety education & training;Functional mobility training;Neuromuscularre- education;Patient/Caregiver education & training;Endurance training;Transfer training Restrictions Restrictions/Precautions Restrictions/Precautions: Fall Risk, General Precautions Required Braces or Orthoses?: No Subjective Subjective Subjective: Pt in bed upon arrival, per nurse please leave pt in bed at this time. Pain: denies Objective Bed Mobility Training Bed Mobility Training: No Transfer Training Transfer Training: No Gait Gait Training: No PT Exercises Exercise Treatment: Supine BLE x15 in all available planes of motion Safety Devices Type of Devices: Nurse notified;Call light within reach;All fall risk precautions in place;Patient at risk for falls;Gait belt;Left in bed;Bed alarm in place Goals Short Term Goals Time Frame for Short Term Goals: 20 days Short Term Goal 1: Pt will be educated on his POC and HEP Short Term Goal 2: Pt will perform bed mobility and transfers with min A in order to return to PLOF Short Term Goal 3: Pt will ambulate 25 feet with LRAD Mod A in order to use the bathroom Short Term Goal 4: Pt will increase sitting balance to Fair + and standing balance to fair in orderto reduce fall risk Education Patient Education Education Given To: Patient Education Provided: Role of Therapy Education Method: Verbal Barriers to Learning: Cognition Education Outcome: Continued education needed Therapy Time Individual Concurrent Group Co-treatment Time In 1142 Time Out 1157 Minutes 15 Timed Code Treatment Minutes: 15 Minutes Gisselle Thakkar PTA * Georgie Serra, RN - 04/23/2024 12:27 PM EST Report called to nurse at [facility] at this time. * Georgie Serra, ARA - 04/23/2024 8:56 AM EST Shift assessment and vitals obtained at this time as charted. Vitals WNL, patient denies pain. Patient remains oriented to person only. Rhonchi heard throughout lung matta. Bowel sounds active throughout with no guarding/tenderness noted to abdomen. Trace, non-pitting edema noted to BLE. Assessment otherwise as charted, see flowsheets. Morning medications also given at this time. Patient is resting in the bed with bed alarm on and call light in reach, denies other needs at this time. Care ongoing. * Dorota Woodson APRN - OTONIEL - 04/23/2024 8:49 AM EST Progress Note SUBJECTIVE: Patient seen for f/u of Small bowel obstruction (HCC). He resting in bed with audible rhonchi. No pain. Stated I'm fine . Tolerating diet well. ROS: Constitutional: negative for fevers, and negative [...] otherwise stated in HPI OBJECTIVE: Vitals: Vitals: 04/22/24 1845 BP: 122/68 Pulse: 68 Resp: 20 Temp: 98.4 F (36.9 C) SpO2: 95% Weight - Scale: 89.5 kg (197 lb 4.8 oz) (Bed not zero) Height: 177.8 cm (5' 10 ) Weight Wt Readings from Last 3 Encounters: 04/22/24 89.5 kg (197 lb 4.8 oz) 02/07/24 89.6 kg (197 lb 8 oz) 07/24/23 79.4 kg (175 lb) Body mass index is 28.31 kg/m . 24HR INTAKE/OUTPUT: Intake/Output Summary (Last 24 hours) at 04/23/2024 0850 Last data filed at 04/22/2024 1715 Gross per 24 hour Intake 1280.06 ml Output -- Net 1280.06 ml Exam: GEN: Awake, alert and oriented [...] Diagnostic Data: Complete Blood Count: Recent Labs 04/21/2461904/22/24 0510 04/23/24 0533 WBC 11.1 9.9 7.4 RBC 3.79* 3.63* 3.64* HGB 12.3* 11.9* 11.8* HCT 38.1* 37.2* 37.4* MCV 100.5 102.5 102.7 MCH 32.5 32.8 32.4 MCHC 32.3 32.0 31.6 RDW 12.3 12.3 12.3 PLT 194 190 195 MPV 9.2 9.5 9.5 Last 3 Blood Glucose: Recent Labs 04/21/24 0620 04/22/24 0510 04/23/24 0533 GLUCOSE 82 79 95 Comprehensive Metabolic Profile: Recent Labs 04/21/24 0604/22/24 0510 04/23/24 0533 NA 149* 153* 150* K 3.9 3.8 3.9 CL 114* 118* 116* CO2 24 22 25 BUN 29* 26* 20 CREATININE 0.8 0.8 0.8 GLUCOSE 82 79 95 CALCIUM 8.6 8.7 8.6 Urinalysis: Lab Results Component Value Date/Time NITRU NEGATIVE 06/11/2023 03:28 PM COLORU Yellow 06/11/2023 03:28 PM PHUR 6.0 06/11/2023 03:28 PM WBCUA 0 TO 2 06/11/2023 03:28 PM RBCUA None 06/11/2023 03:28 PM MUCUS TRACE 06/11/2023 03:28 PM TRICHOMONAS NOT REPORTED 12/05/2018 06:15 AM YEAST NOT REPORTED 12/05/2018 06:15 AM BACTERIA TRACE 06/11/2023 03:28 PM LEUKOCYTESUR NEGATIVE 06/11/2023 03:28 PM UROBILINOGEN Normal 06/11/2023 03:28 PM BILIRUBINUR NEGATIVE 06/11/2023 03:28 PM BILIRUBINUR NEGATIVE 10/31/2010 12:33 PM GLUCOSEU NEGATIVE 06/11/2023 03:28 PM GLUCOSEU NEGATIVE 10/31/2010 12:33 PM KETUA NEGATIVE 06/11/2023 03:28 PM AMORPHOUS 2+ 06/12/2022 11:10 AM HgBA1c: No results found for: LABA1C Lactic Acid: Lab Results Component Value Date/Time LACTA 0.6 06/12/2023 05:10 AM LACTA 1.3 09/02/2022 07:35 PM LACTA 1.3 06/21/2022 12:30 PM Troponin: No results for input(s): TROPONINI in the last 72 hours. CRP: No results for input(s): CRP in the last 72 hours. Radiology/Imaging: XR ABDOMEN FOR NG/OG/NE TUBE PLACEMENT Final Result Gastric decompression tube tip overlies the gastric body CT ABDOMEN PELVIS W IV CONTRAST Additional Contrast? None Final Result 1. Diffuse small bowel dilation. There is no true transition point. 2. Abrupt transition in the transverse colon. A mass is not appreciated. 3. Appearance of the left kidney is unchanged. XR CHEST PORTABLE Final Result Hypoventilatory chest with no acute findings. FL SMALL BOWEL FOLLOW THROUGH ONLY (Results Pending) ASSESSMENT / PLAN: MEDICAL DECISION MAKING: Primary Problem(s): Small bowel obstruction (HCC) Condition is stable Treatment plan: General Surgery consult appreciated: Discussed with Dr. Clayton/Dr Jese Sawant reported SBFT - Looks Good MARCELLA NG out MARCELLA - start clears Imaging: SBFT - clear Medications: Continue Zofran prn nausea Medication Monitoring / High Risk Medications: Parenteral administration of controlled substance(s) Seizure disorder Condition is a chronic stable condition Treatment plan: Seizure precuations Medications: Continue Keppra, Lamictal, V[facility] Prophylaxis: DVT: Lovenox Stress Ulcer: PPI and H2 klarissa Disposition: Shared decision making: no family at side Social determinants of health that may impact management: resides in [place] Code status: Full Code Disposition: Discharge plan is home today MIPS Advanced Care Planning documentation: [x] I [...] record. [DOES NOT SATISFY MIPS PERFORMANCE] Dorota Salter-RAISA Acosta - OTONIEL , RAISA, PRODUCTION WOOD CRAFTSMAN-[facility] 04/23/2024, 8:50 AM Associated attestation - Yana Cornejo MD - 04/23/2024 12:56 PM EST Yana Cornejo M.D. Internal Medicine PA/PRODUCTION WO[employer] CRAFTSMAN Attestation Note Patient: Amol Taylor Date of Admission: 04/19/2024 9:01 AM Date of Evaluation: 04/23/2024 I personally evaluated and examined the patient [id number] in conjunction with the PA/PRODUCTION WOOD CRAFTSMAN and agree with the management and dispostition of the patient. Please see the PA/PRODUCTION WOOD CRAFTSMAN's note for full details.My gee findings are: SUBJECTIVE: Amol Taylor is a 69 y.o. male who was seen today along with Dorota Salter CNP for follow up of Small bowel obstruction (HCC). He states he's feeling fine . He denies any abd pain. He is tolerating diet. He is moving his bowels. OBJECTIVE: Vitals: Temp: 97 F (36.1 C) BP: 129/64 Respirations: 18 Pulse: 76 SpO2: 96 % Weight Wt Readings from Last 3 Encounters: 04/23/24 89.6 kg (197 lb 8 oz) 02/07/24 89.6 kg (197 lb 8 oz) 07/24/23 79.4 kg (175 lb) Body mass index is 28.34 kg/m . 24HR INTAKE/OUTPUT: Intake/Output Summary (Last 24 hours) at 04/23/2024 1255 Last data filed at 04/23/2024 0825 Gross per 24 hour Intake 840 ml Output -- Net 840 ml Exam: GEN: Awake and alert. No acute distress . EYES: EOMI, pupils equal NECK: Supple. No [...] lesions. DATA: Complete Blood Count: Recent Labs 04/21/2461904/22/24 0504/23/24 0533 WBC 11.1 9.9 7.4 RBC 3.79* 3.63* 3.64* HGB 12.3* 11.9* 11.8* HCT 38.1* 37.2* 37.4* MCV 100.5 102.5 102.7 RDW 12.3 12.3 12.3 PLT 194 190 195 Recent Labs 04/21/2461904/22/24 0510 04/23/24 0533 NEUTROABS 8.28* 7.52 4.70 LYMPHOPCT 15* 14* 24 LYMPHSABS 1.70 1.35 1.79 MONOPCT 8 9 8 BASOPCT 0 0 0 IMMGRAN 0 0 0 CMP: Recent Labs 04/21/2461904/22/24 0510 04/23/24 0533 NA 149* 153* 150* K 3.9 3.8 3.9 CL 114* 118* 116* CO2 24 22 25 BUN 29* 26* 20 CREATININE 0.8 0.8 0.8 GLUCOSE 82 79 95 CALCIUM 8.6 8.7 8.6 UA: Lab Results Component Value Date COLORU Yellow 06/11/2023 WBCUA 0 TO 2 06/11/2023 RBCUA None 06/11/2023 LEUKOCYTESUR NEGATIVE 06/11/2023 GLUCOSEU NEGATIVE 06/11/2023 KETUA NEGATIVE 06/11/2023 PROTEINU NEGATIVE 06/11/2023 HGBUR NEGATIVE 06/11/2023 CASTUA NOT REPORTED 12/05/2018 BACTERIA TRACE (A) 06/11/2023 YEAST NOT REPORTED 12/05/2018 Lactic Acid: No results for input(s): LACTA , LACTSEPSIS in the last 72 hours. High Sensitivity Troponin: No results for input(s): TROPHS in the last 72 hours. Microbiology / Cultures: Results No results found for the last 336 hours. Imaging Data: XR ABDOMEN FOR NG/OG/NE TUBE PLACEMENT Result Date: 04/19/2024 EXAMINATION: ONE SUPINE XRAY VIEW(S) OF THE ABDOMEN 04/19/2024 2:47 pm COMPARISON: None. HISTORY: ORDERING SYSTEM PROVIDED HISTORY: Confirmation of course of NG/OG/NE tube and location of tip of tube TECHNOLOGIST PROVIDED HISTORY: Confirmation of course of NG/OG/NE tube and location of tip of tube Po rtable?->Yes FINDINGS: Enteric tube tip overlies the gastric body. Pathologically dilated loops of small bowel in the imaged abdomen consistent with obstruction. Gastric decompression tube tip overlies the gastric body CT ABDOMEN PELVIS W IV CONTRAST Additional Contrast? None Result Date: 04/19/2024 EXAMINATION: CT OF THE ABDOMEN AND PELVIS WITH CONTRAST 04/19/2024 2:58 pm TECHNIQUE: CT of the abdomen and pelvis was performed with the administration of intravenous contrast. Multiplanar reformatted images are provided for review. Automated exposure control, iterative reconstruction, and/or weight based adjustment of the mA/kV was utilized to reduce the radiation dose to as low as reasonably achievable. COMPARISON: 02/02/2024 HISTORY: ORDERING SYSTEM PROVIDED HISTORY: Vomiting history of small bowel obstruction TECHNOLOGIST PROVIDED HISTORY: Vomiting history of small bowel obstruction Decision Support Exception - unselect if not a suspected or confirmed emergency medical condition->[facility] Medical Condition (MA) FINDINGS: Lower chest: Heart size is normal. Lungs are bibasilar atelectasis. Liver: Liver is normal density. No enhancing masses. Normal enhancement of the intrahepatic vasculature. Spleen: Normal size. No enhancing masses Pancreas: No enhancing masses. No ductal dilation. No adjacent fatty stranding. Gallbladder no calcified stones or sludge. No pericholecystic fluid. No wall thickening. Bile ducts: No biliary ductal dilation Adrenals: The adrenal glands are unremarkable Kidneys: Kidneys are normal in appearance. No hydronephrosis. No enhancing masses. Norenal stones. Appearance of the left kidney is unchanged. Calcified capsule in the subcapsular collection. The fluid collection is not showing enhancement GI: Stomach is largely distended and filled with fluid. Diffuse small bowel dilation. The distal small bowel is mildly decompressed but there is no truetransition point. Fluid in the colon. Abrupt transition in the transverse colon but a mass is not appreciated. There is a segment of the transverse colon is decompressed and the colon tear proximal to this is dilated and filled with gas. Gas and small amount of feces are seen in the remainder of the colon. But the colon is predominately decompressed. Is tortuous. Mesentery: No enlarged lymphadenopathy. No free fluid. No free gas. Aorta: Aorta is of normal size. Negative for dissection. IVC is diffusely flattened which may indicate dehydration..Celiac axis and SMA are patent. Portal vein is patent. PELVIS GI: No small bowel dilation. No colonic wall thickening. No enlarged lymphadenopathy. no free fluid in the pelvis. : The bladder is unremarkable in appearance. No large mass. Prostate is not enlarged. Phleboliths in the pelvis. Osseous: Spondylosis.. Old transverse process fractures. Old rib fractures. 1. Diffuse small bowel dilation. There is no true transition point. 2. Abrupt transition in the transverse colon. A mass is not appreciated. 3. Appearance of the left kidney is unchanged. XR CHEST PORTABLE Result Date: 04/19/2024 EXAMINATION: ONE XRAY VIEW OF THE CHEST 04/19/2024 10:10 am COMPARISON: 02/03/2024. HISTORY: ORDERING SYSTEM PROVIDED HISTORY: Coarse breath sounds following emesis TECHNOLOGIST PROVIDED HISTORY: Coarse breath sounds following emesis FINDINGS: Lung volumes are small. The cardiomediastinal silhouette pulmonary vessels are unremarkable. The patient is rotated to the left. No airspace consolidation or pleural effusion is identified. Hypoventilatory chest with no acute findings. ASSESSMENT: Principal Problem: Small bowel obstruction (HCC) Active Problems: Seizure disorder (HCC) S/P placement of VNS (vagus nerve stimulation) device MR (mental retardation), severe Resolved Problems: * No resolved hospital problems. * PLAN: I agree with the assessment, plan and medical decision making documentation as outlined by APC: Treatment plan: Tolerating diet + flatus and BMs Stable for DC Disposition: Discharge plan is back to [facility] VISIT, PHYSICIAN ATTESTATION: [id number] I personally performed a substantive part of the MDM during the patient's visit. I personally evaluated and examined the patient. I personally made or approved the documented management plan and acknowledge its risk of complications. Test interpretation: My independent EKG interpretation: Normal sinus rhythm with non-specific ST changes My independent imaging interpretation: CXR shows no acute process Management and/or test interpretation discussed with OTONIEL Zuñiga MD , M.D. 04/23/2024 12:55 PM * Marilu Colón RN - 04/22/2024 6:45 PM EST PT resting in bed during assessment, they are oriented to self only. Assessment complete and charted, see flowsheets. PT made comfortable, call light in reach, care on-going. * Aftab Guzmán PTA - 04/22/2024 2:50 PM EST Physical Therapy Facility/Department: [facility] MED SURG Daily Treatment Note NAME: Amol Taylor : 1955 Date of Service: 04/22/2024 Discharge Recommendations: Continue to assess pending progress Patient Diagnosis(es): The encounter diagnosis was Intestinal obstruction, unspecified cause, unspecified whether partial or complete (HCC). Assessment Assessment: Nurse present throughout treatment for assistance for chair to bed transfers. Transfers: Max A x 3. Bed Mobility: Mod-Max A x 2 for rolling and scooting. PROM supine BLE exercises x 15 repetitions. Activity Tolerance: Treatment limited secondary to decreased cognition Plan Physical Therapy Plan General Plan: 2 times a day 7 days a week Specific Instructions for Next Treatment: 1x/daily on weekends and holidays Current Treatment Recommendations: Strengthening;Home exercise program;Balance training;Gait training;Therapeutic activities;Safety education & training;Functional mobility training;Neuromuscularre- education;Patient/Caregiver education & training;Endurance training;Transfer training Restrictions Restrictions/Precautions Restrictions/Precautions: Fall Risk, General Precautions Required Braces or Orthoses?: No Subjective Subjective Subjective: Pt. in chair upon arrival with nurse present, agreeable to therapy at this time Pain: denies Objective Bed Mobility Training Bed Mobility Training: Yes Overall Level of Assistance: Substantial/Maximal assistance Interventions: Safety awareness training;Verbal cues Rolling: Substantial/Maximal assistance;2 Person assistance Supine to Sit: 2 Person assistance;Substantial/Maximal assistance Sit to Supine: Substantial/Maximal assistance;2 Person assistance Scooting: Partial/Moderate assistance Balance Sitting: Impaired Sitting - Static: Poor (constant support) Sitting - Dynamic: Poor (constant support) Standing: Impaired Standing - Static: Poor Standing - Dynamic: Poor;Constant support Transfer Training Transfer Training: Yes Overall Level of Assistance: Substantial/Maximal assistance;2 Person assistance Interventions: Verbal cues;Tactile cues;Safety awareness training Sit to Stand: Substantial/Maximal assistance;2 Person assistance Stand to Sit: Partial/Moderate assistance;2 Person assistance Stand Pivot Transfers: Substantial/Maximal assistance;2 Person assistance Bed to Chair: Substantial/Maximal assistance;2 Person assistance Gait Gait Training: No PT Exercises Exercise Treatment: Supine BLE x15 in all available planes of motion PROM Exercises: Supine PROM BLE exercises x 15 repetitions Safety Devices Type of Devices: Nurse notified;Call light within reach;All fall risk precautions in place;Patient at risk for falls;Gait belt;Left in bed;Bed alarm in place Goals Short Term Goals Time Frame for Short Term Goals: 20 days Short Term Goal 1: Pt will be educated on his POC and HEP Short Term Goal 2: Pt will perform bed mobility and transfers with min A in order to return to PLOF Short Term Goal 3: Pt will ambulate 25 feet with LRAD Mod A in order to use the bathroom Short Term Goal 4: Pt will increase sitting balance to Fair + and standing balance to fair in orderto reduce fall risk Education Patient Education Education Given To: Patient Education Provided: Transfer Training Education Method: Verbal Barriers to Learning: Cognition Education Outcome: Continued education needed Therapy Time Individual Concurrent Group Co-treatment Time In 1400 Time Out 1418 Minutes 18 Timed Code Treatment Minutes: 16 Minutes Aftab Guzmán PTA * Jordan SHANTI Nevarez - 04/22/2024 11:21 AM EST Occupational Therapy Facility/Department: [facility] MED SURG Daily Treatment Note NAME: Amol Taylor : 1955 Date of Service: 04/22/2024 Discharge Recommendations: Continue to assess pending progress, 24 hour supervision or assist, Display Associate Care with OT, Subacute/Fci Facility Patient Diagnosis(es): The encounter diagnosis was Intestinal obstruction, unspecified cause, unspecified whether partial or complete (HCC). Assessment Assessment: Pt in bed upon arrival with being very confused and disoriented x4 Activity Tolerance: Treatment limited secondary to decreased cognition Discharge Recommendations: Continue to assess pending progress;24 hour supervision or assist;Shelter Care with OT;Subacute/Fci Facility Plan Occupational Therapy Plan Times Per Day: Once a day Days Per Week: 7 Days Current Treatment Recommendations: Strengthening;ROM;Balance training;Functional mobility training;Endurance training;Safety education & training;Patient/Caregiver education & training;Self-Care / ADL Restrictions General Fall Risk Subjective Subjective Subjective: Pt lying in bed upon arrival. Nursing and JOB MOLDER completed brief change and bed mobility. Pain: Unable to verbalized Orientation Overall Orientation Status: Impaired Orientation Level: Disoriented X4 Pain: denies Cognition Cognition Comment: MRDD Objective Vitals Bed Mobility Training Bed Mobility Training: Yes Overall Level of Assistance: Substantial/Maximal assistance;Partial/Moderate assistance Interventions: Safety awareness training;Verbal cues Rolling: Substantial/Maximal assistance;2 Person assistance Supine to Sit: Partial/Moderate assistance;2 Person assistance Scooting: Minimal assistance Balance Sitting: Impaired Sitting - Static: Poor (constant support) Sitting - Dynamic: Poor (constant support) Standing: Impaired Standing - Static: Poor Standing - Dynamic: Poor Transfer Training Transfer Training: Yes Overall Level of Assistance: Partial/Moderate assistance;2 Person assistance;Substantial/Maximal assistance Interventions: Verbal cues;Tactile cues;Safety awareness training Sit to Stand: Partial/Moderate assistance;2 Person assistance Stand to Sit: Partial/Moderate assistance;2 Person assistance Stand Pivot Transfers: Substantial/Maximal assistance;2 Person assistance (pt is very impulsive) Bed to Chair: Substantial/Maximal assistance;2 Person assistance Gait Gait Training: No ADL Toileting: Dependent/Total Product Used : Bath wipes OT Exercises Exercise Treatment: Attempted AROM with BUE x 3 planes x 15 reps with patient having difficulty with following commands with visual and tactile cues needed throughout Safety Devices Type of Devices: Nurse notified;Call light within reach;All fall risk precautions in place;Patient at risk for falls;Chair alarm in place;Left in chair;Gait belt Patient Education Education Given To: Patient Education Provided: Role of Therapy;Plan of Care Education Method: Verbal Barriers to Learning: Cognition Education Outcome: Continued education needed Goals Short Term Goals Time Frame for Short Term Goals: 21 visits Short Term Goal 1: Pt caregiver to be educated on d/c folder, AE/DME, and home safety to ensure safe and indep return home. Short Term Goal 2: Pt to complete functional transfers during ADLs with no more than Min A and goodsafety awareness to increase independence with toileting and showering. Short Term Goal 3: Pt to engage in BUE ther ex with supervision and mod VC for technique to increase overall strength and endurance for ease with functional tfers and ADLs. AM-PAC - ADL Therapy Time Individual Concurrent Group Co-treatment Time In 1043 Time Out 1059 Minutes 16 SHANTI Rudd * Gisselle Thakkar PTA - 04/22/2024 11:07 AM EST Physical Therapy Facility/Department: [facility] MED SURG Daily Treatment Note NAME: Amol Taylor : 1955 Date of Service: 04/22/2024 Discharge Recommendations: Continue to assess pending progress Patient Diagnosis(es): The encounter diagnosis was Intestinal obstruction, unspecified cause, unspecified whether partial or complete (HCC). Assessment Assessment: Nurse present throughout treatment for assistance with transfers. Pt bed mobility maxAx2 for bed mobiilty for hygeine with cues for hand placement. Pt required ModA with Supine to sit transfer with hand placement cues. Pt ModAx2 with STS transfer from bed to chair but max A x2 with SPT.Pt required maxAx2 for boost in chair. pt completed reclined B LE exer x10 with therapist encouragement for full ROM. Plan Physical Therapy Plan General Plan: 2 times a day 7 days a week Specific Instructions for Next Treatment: 1x/daily on weekends and holidays Current Treatment Recommendations: Strengthening;Home exercise program;Balance training;Gait training;Therapeutic activities;Safety education & training;Functional mobility training;Neuromuscularre- education;Patient/Caregiver education & training;Endurance training;Transfer training Restrictions Restrictions/Precautions Restrictions/Precautions: Fall Risk, General Precautions Required Braces or Orthoses?: No Subjective Subjective Subjective: Pt. in bed upon arrival, agreeable to therapy at this time Pain: denies Objective Bed Mobility Training Bed Mobility Training: Yes Overall Level of Assistance: Substantial/Maximal assistance;Partial/Moderate assistance Interventions: Safety awareness training;Verbal cues Rolling: Substantial/Maximal assistance;2 Person assistance Supine to Sit: Partial/Moderate assistance;2 Person assistance Scooting: Minimal assistance Balance Sitting: Impaired Sitting - Static: Poor (constant support) Sitting - Dynamic: Poor (constant support) Standing: Impaired Standing - Static: Poor Standing - Dynamic: Poor Transfer Training Transfer Training: Yes Overall Level of Assistance: Partial/Moderate assistance;2 Person assistance;Substantial/Maximal assistance Interventions: Verbal cues;Tactile cues;Safety awareness training Sit to Stand: Partial/Moderate assistance;2 Person assistance Stand to Sit: Partial/Moderate assistance;2 Person assistance Stand Pivot Transfers: Substantial/Maximal assistance;2 Person assistance Bed to Chair: Substantial/Maximal assistance;2 Person assistance Gait Gait Training: No PT Exercises Exercise Treatment: Supine BLE x15 in all available planes of motion Safety Devices Type of Devices: Nurse notified;Call light within reach;All fall risk precautions in place;Patient at risk for falls;Chair alarm in place;Left in chair;Gait belt Goals Short Term Goals Time Frame for Short Term Goals: 20 days Short Term Goal 1: Pt will be educated on his POC and HEP Short Term Goal 2: Pt will perform bed mobility and transfers with min A in order to return to PLOF Short Term Goal 3: Pt will ambulate 25 feet with LRAD Mod A in order to use the bathroom Short Term Goal 4: Pt will increase sitting balance to Fair + and standing balance to fair in orderto reduce fall risk Education Patient Education Education Given To: Patient Education Provided: Transfer Training Education Method: Verbal Barriers to Learning: Cognition Education Outcome: Continued education needed Therapy Time Individual Concurrent Group Co-treatment Time In 1042 Time Out 1058 Minutes 16 Timed Code Treatment Minutes: 16 Minutes Gisselle Thakkar PTA * Jami Sawant, DO - 04/22/2024 9:35 AM EST General Surgery: Daily Progress Note PATIENT NAME: Amol Taylor TODAY'S DATE: 04/22/2024, 9:35 AM CC: Denies abdominal pain SUBJECTIVE: Pt seen and examined at bedside this AM. No acute events overnight. Denies nausea or emesis. NG tube came out this morning. Having bowel function. Small bowel follow-through shows contrast in the distal colon and rectum. OBJECTIVE: VITALS: BP 139/73 Pulse 70 Temp 98.6 F (37 C) (Temporal) Resp 20 Ht 1.778 m (5' 10 ) Wt 89.5 kg (197 lb 4.8 oz) Comment: Bed not zero SpO2 93% BMI 28.31 kg/m INTAKE/OUTPUT: Intake/Output Summary (Last 24 hours) at 04/22/2024 0935 Last data filed at 04/22/2024 0904 Gross per 24 hour Intake 2549.23 ml Output -- Net 2549.23 ml PHYSICAL EXAM: General Appearance: awake, alert, oriented to himself, in no acute distress HEENT: Normocephalic, atraumatic, mucus membranes moist Heart: Regular rate and rhythm Lungs: Equal chest rise bilaterally, no accessory muscle use Abdomen: Soft, nontender, minimally distended Extremities: No cyanosis, pitting edema, rashes noted. Skin: Skin color, texture, turgor normal. No rashes or lesions. Data: CBC with Differential: Lab Results Component Value Date/Time WBC 9.9 04/22/2024 05:10 AM RBC 3.63 04/22/2024 05:10 AM RBC 3.43 10/31/2010 11:48 AM HGB 11.9 04/22/2024 05:10 AM HCT 37.2 04/22/2024 05:10 AM PLT 190 04/22/2024 05:10 AM PLT 206 10/31/2010 11:48 AM MCV 102.5 04/22/2024 05:10 AM MCH 32.8 04/22/2024 05:10 AM MCHC 32.0 04/22/2024 05:10 AM RDW 12.3 04/22/2024 05:10 AM LYMPHOPCT 14 04/22/2024 05:10 AM MONOPCT 9 04/22/2024 05:10 AM EOSPCT 1 04/22/2024 05:10 AM BASOPCT 0 04/22/2024 05:10 AM MONOSABS 0.88 04/22/2024 05:10 AM LYMPHSABS 1.35 04/22/2024 05:10 AM EOSABS 0.06 04/22/2024 05:10 AM BASOSABS 0.03 04/22/2024 05:10 AM DIFFTYPE NOT REPORTED 04/13/2021 07:30 AM BMP: Lab Results Component Value Date/Time NA 153 04/22/2024 05:10 AM K 3.8 04/22/2024 05:10 AM CL 118 04/22/2024 05:10 AM CO2 22 04/22/2024 05:10 AM BUN 26 04/22/2024 05:10 AM CREATININE 0.8 04/22/2024 05:10 AM CALCIUM 8.7 04/22/2024 05:10 AM GFRAA >60 09/10/2021 10:31 PM LABGLOM >90 04/22/2024 05:10 AM LABGLOM >90 06/21/2023 05:45 AM GLUCOSE 79 04/22/2024 05:10 AM GLUCOSE 92 10/31/2010 11:48 AM Radiology Review: No results found. Small bowel follow-through reviewed shows contrast in the distal colon and rectum ASSESSMENT: Active Hospital Problems Diagnosis Date Noted Small bowel obstruction (HCC) [K56.609] 04/19/2024 69 y.o. male with partial small bowel obstruction Plan: Partial small bowel obstruction resolving Patient on clear liquids okay to advance as tolerated Continue plan of nonoperative management at this time. * Carol Harman, RN - 04/22/2024 9:[address] Sawant at the bedside at this time to see patient. Dr. Sawant made aware that the patientremoved his NG tube this morning. Dr. Sawant ok with it being out due to small bowel follow through results. * Dorota Woodson APRN - OTONIEL - 04/22/2024 7:49 AM EST Progress Note SUBJECTIVE: Patient seen for f/u of Small bowel obstruction (HCC). He resting in bed with audible rhonchi. No pain. Stated I'm fine . NG pulled out and having stools. ROS: Constitutional: negative for fevers, and negative [...] otherwise stated in HPI OBJECTIVE: Vitals: Vitals: 04/22/24 0649 BP: 139/73 Pulse: 70 Resp: 20 Temp: 98.6 F (37 C) SpO2: 93% Weight - Scale: 89.5 kg (197 lb 4.8 oz) (Bed not zero) Height: 177.8 cm (5' 10 ) Weight Wt Readings from Last 3 Encounters: 04/22/24 89.5 kg (197 lb 4.8 oz) 02/07/24 89.6 kg (197 lb 8 oz) 07/24/23 79.4 kg (175 lb) Body mass index is 28.31 kg/m . 24HR INTAKE/OUTPUT: Intake/Output Summary (Last 24 hours) at 04/22/2024 0750 Last data filed at 04/22/2024 0417 Gross per 24 hour Intake 1869.17 ml Output -- Net 1869.17 ml Exam: GEN: Awake, alert and oriented [...] Diagnostic Data: Complete Blood Count: Recent Labs 04/20/24 0645 04/21/24 0604/22/24 0510 WBC 12.5* 11.1 9.9 RBC 4.31 3.79* 3.63* HGB 13.9 12.3* 11.9* HCT 42.4 38.1* 37.2* MCV 98.4 100.5 102.5 MCH 32.3 32.5 32.8 MCHC 32.8 32.3 32.0 RDW 12.5 12.3 12.3 PLT 250 194 190 MPV 8.9 9.2 9.5 Last 3 Blood Glucose: Recent Labs 04/19/24 1215 04/20/24 0645 04/21/24 0620 04/22/24 0510 GLUCOSE 111* 104* 82 79 Comprehensive Metabolic Profile: Recent Labs 04/19/24 1215 04/20/24 0645 04/21/24 0620 04/22/24 0510 NA 143 146* 149* 153* K 4.3 3.8 3.9 3.8 CL 104 109* 114* 118* CO2 BUN 27* 36* 29* 26* CREATININE 1.3* 1.1 0.8 0.8 GLUCOSE 111* 104* 82 79 CALCIUM 9.9 8.6 8.6 8.7 BILITOT 0.3 -- -- -- ALKPHOS 215* -- -- -- AST 18 -- -- -- ALT 13 -- -- -- Urinalysis: Lab Results Component Value Date/Time NITRU NEGATIVE 06/11/2023 03:28 PM COLORU Yellow 06/11/2023 03:28 PM PHUR 6.0 06/11/2023 03:28 PM WBCUA 0 TO 2 06/11/2023 03:28 PM RBCUA None 06/11/2023 03:28 PM MUCUS TRACE 06/11/2023 03:28 PM TRICHOMONAS NOT REPORTED 12/05/2018 06:15 AM YEAST NOT REPORTED 12/05/2018 06:15 AM BACTERIA TRACE 06/11/2023 03:28 PM LEUKOCYTESUR NEGATIVE 06/11/2023 03:28 PM UROBILINOGEN Normal 06/11/2023 03:28 PM BILIRUBINUR NEGATIVE 06/11/2023 03:28 PM BILIRUBINUR NEGATIVE 10/31/2010 12:33 PM GLUCOSEU NEGATIVE 06/11/2023 03:28 PM GLUCOSEU NEGATIVE 10/31/2010 12:33 PM KETUA NEGATIVE 06/11/2023 03:28 PM AMORPHOUS 2+ 06/12/2022 11:10 AM HgBA1c: No results found for: LABA1C Lactic Acid: Lab Results Component Value Date/Time LACTA 0.6 06/12/2023 05:10 AM LACTA 1.3 09/02/2022 07:35 PM LACTA 1.3 06/21/2022 12:30 PM Troponin: No results for input(s): TROPONINI in the last 72 hours. CRP: No results for input(s): CRP in the last 72 hours. Radiology/Imaging: XR ABDOMEN FOR NG/OG/NE TUBE PLACEMENT Final Result Gastric decompression tube tip overlies the gastric body CT ABDOMEN PELVIS W IV CONTRAST Additional Contrast? None Final Result 1. Diffuse small bowel dilation. There is no true transition point. 2. Abrupt transition in the transverse colon. A mass is not appreciated. 3. Appearance of the left kidney is unchanged. XR CHEST PORTABLE Final Result Hypoventilatory chest with no acute findings. [place] SMALL BOWEL FOLLOW THROUGH ONLY (Results Pending) ASSESSMENT / PLAN: MEDICAL DECISION MAKING: Primary Problem(s): Small bowel obstruction (HCC) Condition is stable Treatment plan: General Surgery consult appreciated: Discussed with Dr. Clayton/Dr Jese Sawant reported SBFT - Looks Good MARCELLA NG out MARCELLA - start clears Imaging: SBFT - pending Medications: Continue Morphine PRN pain Continue Zofran prn nausea Medication Monitoring / High Risk Medications: Parenteral administration of controlled substance(s) Seizure disorder Condition is a chronic stable condition Treatment plan: Seizure precuations Medications: Diastat rectal gel PRN Hospital Prophylaxis: DVT: Lovenox Stress Ulcer: PPI and H2 klarissa Disposition: Shared decision making: no family at side Social determinants of health that may impact management: resides in [facility] Code status: Full Code Disposition: Discharge plan is pending [facility] Advanced Care Planning documentation: [x] I have [...] the patient's medical record. [DOES NOT SATISFY [facility] PERFORMANCE] Dorota Salter-RAISA Acosta - OTONIEL , PROGRAM DIR, PRODUCTION WOOD CRAFTSMAN-C [facility] Medicine 04/22/2024, 7:50 AM Associated attestation - Yana Cornejo MD - 04/22/2024 12:30 PM EST Yana Cornejo M.D. Internal Medicine PA/PRODUCTION WOOD CRAFTSMAN Attestation Note Patient: Amol Taylor Date of Admission: 04/19/2024 9:01 AM Date of Evaluation: 04/22/2024 I personally evaluated and examined the patient [id number] in conjunction with the PA/PRODUCTION WOOD CRAFTSMAN and agree with the management and dispostition of the patient. Please see the PA/PRODUCTION WOOD CRAFTSMAN's note for full details.My gee findings are: SUBJECTIVE: Amol Taylor is a 69 y.o. male who was seen today along with Dorota Salter CNP for follow up of Small bowel obstruction (HCC). He states he's feeling fine . He denies any abd pain.per nursing he pulled his NGT out early this AM but is having BMs. OBJECTIVE: Vitals: Temp: 98.6 F (37 C) BP: 139/73 Respirations: 20 Pulse: 70 SpO2: 93 % Weight Wt Readings from Last 3 Encounters: 04/22/24 89.5 kg (197 lb 4.8 oz) 02/07/24 89.6 kg (197 lb 8 oz) 07/24/23 79.4 kg (175 lb) Body mass index is 28.31 kg/m . 24HR INTAKE/OUTPUT: Intake/Output Summary (Last 24 hours) at 04/22/2024 1228 Last data filed at 04/22/2024 0904 Gross per 24 hour Intake 2549.23 ml Output 300 ml Net 2249.23 ml Exam: GEN: Awake and alert. No acute distress . EYES: EOMI, pupils equal NECK: Supple. No [...] lesions. DATA: Complete Blood Count: Recent Labs 04/20/24 0645 04/21/24 0620 04/22/24 0510 WBC 12.5* 11.1 9.9 RBC 4.31 3.79* 3.63* HGB 13.9 12.3* 11.9* HCT 42.4 38.1* 37.2* MCV 98.4 100.5 102.5 RDW 12.5 12.3 12.3 PLT 250 194 190 Recent Labs 04/20/24 0645 04/21/24 0620 04/22/24 0510 NEUTROABS 9.04* 8.28* 7.52 LYMPHOPCT 17* 15* 14* LYMPHSABS 2.14 1.70 1.35 MONOPCT 9 8 9 BASOPCT 0 0 0 IMMGRAN 0 0 0 CMP: Recent Labs 04/20/24 0645 04/21/24 0620 04/22/24 0510 NA 146* 149* 153* K 3.8 3.9 3.8 CL 109* 114* 118* CO2 25 24 22 BUN 36* 29* 26* CREATININE 1.1 0.8 0.8 GLUCOSE 104* 82 79 CALCIUM 8.6 8.6 8.7 UA: Lab Results Component Value Date COLORU Yellow 06/11/2023 WBCUA 0 TO 2 06/11/2023 RBCUA None 06/11/2023 LEUKOCYTESUR NEGATIVE 06/11/2023 GLUCOSEU NEGATIVE 06/11/2023 KETUA NEGATIVE 06/11/2023 PROTEINU NEGATIVE 06/11/2023 HGBUR NEGATIVE 06/11/2023 CASTUA NOT REPORTED 12/05/2018 BACTERIA TRACE (A) 06/11/2023 YEAST NOT REPORTED 12/05/2018 Lactic Acid: No results for input(s): LACTA , LACTSEPSIS in the last 72 hours. High Sensitivity Troponin: No results for input(s): TROPHS in the last 72 hours. Microbiology / Cultures: Results No results found for the last 336 hours. Imaging Data: XR ABDOMEN FOR NG/OG/NE TUBE PLACEMENT Result Date: 04/19/2024 EXAMINATION: ONE SUPINE XRAY VIEW(S) OF THE ABDOMEN 04/19/2024 2:47 pm COMPARISON: None. HISTORY: ORDERING SYSTEM PROVIDED HISTORY: Confirmation of course of NG/OG/NE tube and location of tip of tube TECHNOLOGIST PROVIDED HISTORY: Confirmation of course of NG/OG/NE tube and location of tip of tube Po rtable?->Yes FINDINGS: Enteric tube tip overlies the gastric body. Pathologically dilated loops of small bowel in the imaged abdomen consistent with obstruction. Gastric decompression tube tip overlies the gastric body CT ABDOMEN PELVIS W IV CONTRAST Additional Contrast? None Result Date: 04/19/2024 EXAMINATION: CT OF THE ABDOMEN AND PELVIS WITH CONTRAST 04/19/2024 2:58 pm TECHNIQUE: CT of the abdomen and pelvis was performed with the administration of intravenous contrast. Multiplanar reformatted images are provided for review. Automated exposure control, iterative reconstruction, and/or weight based adjustment of the mA/kV was utilized to reduce the radiation dose to as low as reasonably achievable. COMPARISON: 02/02/2024 HISTORY: ORDERING SYSTEM PROVIDED HISTORY: Vomiting history of small bowel obstruction TECHNOLOGIST PROVIDED HISTORY: Vomiting history of small bowel obstruction Decision Support Exception - unselect if not a suspected or confirmed emergency medical condition->[facility] gency Medical Condition (MA) FINDINGS: Lower chest: Heart size is normal. Lungs are bibasilar atelectasis. Liver: Liver is normal density. No enhancing masses. Normal enhancement of the intrahepatic vasculature. Spleen: Normal size. No enhancing masses Pancreas: No enhancing masses. No ductal dilation. No adjacent fatty stranding. Gallbladder no calcified stones or sludge. No pericholecystic fluid. No wall thickening. Bile ducts: No biliary ductal dilation Adrenals: The adrenal glands are unremarkable Kidneys: Kidneys are normal in appearance. No hydronephrosis. No enhancing masses. Norenal stones. Appearance of the left kidney is unchanged. Calcified capsule in the subcapsular collection. The fluid collection is not showing enhancement GI: Stomach is largely distended and filled with fluid. Diffuse small bowel dilation. The distal small bowel is mildly decompressed but there is no truetransition point. Fluid in the colon. Abrupt transition in the transverse colon but a mass is not appreciated. There is a segment of the transverse colon is decompressed and the colon tear proximal to this is dilated and filled with gas. Gas and small amount of feces are seen in the remainder of the colon. But the colon is predominately decompressed. Is tortuous. Mesentery: No enlarged lymphadenopathy. No free fluid. No free gas. Aorta: Aorta is of normal size. Negative for dissection. IVC is diffusely flattened which may indicate dehydration..Celiac axis and SMA are patent. Portal vein is patent. PELVIS GI: No small bowel dilation. No colonic wall thickening. No enlarged lymphadenopathy. no free fluid in the pelvis. : The bladder is unremarkable in appearance. No large mass. Prostate is not enlarged. Phleboliths in the pelvis. Osseous: Spondylosis.. Old transverse process fractures. Old rib fractures. 1. Diffuse small bowel dilation. There is no true transition point. 2. Abrupt transition in the transverse colon. A mass is not appreciated. 3. Appearance of the left kidney is unchanged. XR CHEST PORTABLE Result Date: 04/19/2024 EXAMINATION: ONE XRAY VIEW OF THE CHEST 04/19/2024 10:10 am COMPARISON: 02/03/2024. HISTORY: ORDERING SYSTEM PROVIDED HISTORY: Coarse breath sounds following emesis TECHNOLOGIST PROVIDED HISTORY: Coarse breath sounds following emesis FINDINGS: Lung volumes are small. The cardiomediastinal silhouette pulmonary vessels are unremarkable. The patient is rotated to the left. No airspace consolidation or pleural effusion is identified. Hypoventilatory chest with no acute findings. ASSESSMENT: Principal Problem: Small bowel obstruction (HCC) Resolved Problems: * No resolved hospital problems. * PLAN: I agree with the assessment, plan and medical decision making documentation as outlined by APC: Treatment plan: Leave NGT out SBFT looks good per Dr. Sawant Will start clears and advance as tolerated Disposition: Discharge plan is back to [facility] when stable SHARED APC VISIT, PHYSICIAN ATTESTATION: [id number] I personally performed a substantive part of the MDM during the patient's visit. I personally evaluated and examined the patient. I personally made or approved the documented management plan and acknowledge its risk of complications. Test interpretation: My independent EKG interpretation: Normal sinus rhythm with non-specific ST changes My independent imaging interpretation: CXR shows no acute process Management and/or test interpretation discussed with OTONIEL Zuñiga MD , M.D. 04/22/2024 12:28 PM * Carol Harman RN - 04/22/2024 6:49 AM EST Entered patient's room for morning vital signs and head to toe assessment. Patient resting in the bed at this time. A&O x1, calm, and cooperative, but impulsive. Patient denies of pain at this time and does not appear to be in pain. Vital signs and head to toe assessment completed at this time,see flowsheets for more details. Patient removed NG tube himself upon real estate underwriter walking into room. NG tube found on floor. Telesitter in place, plugged in, and on, but real estate underwriter was never informed or alarmed patient was pulling at tube. Dorota FREDERCIK notified of NG tube status and stated, That's fine, leave it out for now. Bowel sounds are active x4. Abdomen is soft and non tender upon palpation. Patient denies no more needs at this time. Call light within reach. Bed alarm on. Bed wheels locked. Bed in lowest position. Side rails up x3. * Marilu Colón RN - 04/22/2024 12:20 AM EST PT reconnected to low-int suction via NG tube, per Yennifer Lora CNP. Oral hygiene preformed with oral swabs and cleanser provided in pack. PT tolerated well. PT made comfortable, call light in reach, tele-sitter on, care on-going. * Marilu Colón RN - 04/21/2024 7:00 PM EST PT resting in bed, tele-sitter active and present during assessment. PT is alert to self, they are able to answer questions and follow commands without issue. PT NG placement verified at 55cm, tube is currently clamped until completion of small bowel follow through. PT made comfortable with call light in reach, care on-going. * Melany Dorman RCP - 04/21/2024 6:28 PM EST RESPIRATORY ASSESSMENT PROTOCOL Patient Name: Amol Taylor Room#: 0316/0316-01 : 1955 Admitting diagnosis: Small bowel obstruction (HCC) [K56.609] Intestinal obstruction, unspecified cause, unspecified whether partial or complete (HCC) [K56.609] Medical History: Past Medical History: Diagnosis Date Arthritis BPH (benign prostatic hyperplasia) Dysphagia GERD (gastroesophageal reflux disease) Hearing loss HLD (hyperlipidemia) Insomnia MR (mental retardation) Periorbital cellulitis SBO (small bowel obstruction) (HCC) Seizures (HCC) Epilepsy Ventral hernia Vitamin D deficiency PATIENT ASSESSMENT LABORATORY DATA Hematology: Lab Results Component Value Date/Time WBC 11.1 04/21/2024 06:20 AM RBC 3.79 04/21/2024 06:20 AM RBC 3.43 10/31/2010 11:48 AM HGB 12.3 04/21/2024 06:20 AM HCT 38.1 04/21/2024 06:20 AM PLT 194 04/21/2024 06:20 AM PLT 206 10/31/2010 11:48 AM Chemistry: No results found for: PHART , QWQ3AEG , PO2ART , [id number] , [id number] , PBEA , NBEA VITALS Pulse: 87 Respirations: 20 BP: 123/73 SpO2: 92 % O2 Device: None (Room air) Temp: 98.5 F (36.9 C) SKIN COLOR [x] Normal [] Pale [] Dusky [] Cyanotic RESPIRATORY PATTERN [x] Normal [] Dyspnea [] Piero-Fajardo [] Kussmaul [] Biots AMBULATORY [] Yes [] No [x] With Assistance Patient Acuity 0 1 2 3 4 Score Level of Consciousness (LOC) [] Alert & Oriented or Pt normal LOC [x] Confused;follows directions [] Confused & uncooper-ative [] Obtunded [] Comatose 1 Respiratory Rate (RR) [x] Reg. rate & pattern. 12 - 20 bpm [] Increased RR. Greater than 20 bpm [] SOB w/ exertion or RR greater than 24 bpm [] Access- ory muscle use at rest. Abn. resp. [] SOB at rest. 0 Bilateral Breath Sounds (BBS) [x] Clear [] Diminish-ed bases [] Diminish-ed t/o, or rales [] Sporadic, scattered wheezes or rhonchi [] Persistentwheezes and, or absent BBS 0 Cough [x] Strong, effective, & non-prod. [] Effective & prod. Less than 25 ml (2 TBSP) over past 24 hrs [] Ineffective & non-prod to less than 25 ML over past 24 hrs [] Ineffective and, or greater than 25 ml sputum prod. past 24 hrs. [] Nonspon- taneous; Requires suctioning 0 Pulmonary History (PULM HX) [x] No smoking and no chronic pulmonary history [] Former smoker. Quit over 12 mos. ago [] Current smoker or quit w/ in 12 mos [] Pulm. History and, or 20 pk/yr smoking hx [] Admitted w/ acute pulm. dx and, or has been admitted w/ pulm. dx 2 or more times over past 12 mos 0 Surgical History this Admit (SURG HX) [x] No surgery [] General surgery [] Lower abdominal [] Thoracic or upper abdominal [] Thoracic w/ pulm. disease 0 Chest X-Ray (CXR)/CT Scan [] Clear or not applicable [] Not available [x] Atelectasis or pleural effusions [] Localized infiltrate or pulm. edema [] Con-solidated Infiltrates, bilateral, or in more than 1 lobe 2 TOTAL ACUITY: 3 CARE PLAN If Acuity Level is 2, 3, or 4 in any of the following: [] BILATERAL BREATH SOUNDS (BBS) [] PULMONARY HISTORY (PULM HX) [] Respiratory Rate (RR) Goal: Improve respiratory functions in patients with airway disease and decrease WOB [x] AEROSOL PROTOCOL Total Acuity: 14-28 [] Secondary Assessment in 24 hrs Total Acuity: 9-13 [] Secondary Assessment in 24 hrs Total Acuity: 4-8 [] Secondary Assessment in 24 hrs Total Acuity: 0-3 [x] Secondary Assessment in 48 hrs HHN AEROSOL THERAPY with [physician-ordered bronchodilator(s)] q 4 & Albuterol PRN q2 hrs. Breath-Actuated Neb if BBS Acuity = 4, and pt. can use MP. Notify physician if condition deteriorates. HHN AEROSOL THERAPY with [physician-ordered bronchodilator(s)] QID and Albuterol PRN q4 hrs. Breath-Actuated Neb if BBS Acuity = 4, and pt. can use MP. Notify physician if condition deteriorates. MDI THERAPY with 2 actuations of [physician-ordered bronchodilator(s)] via spacer TID Albuterol and PRN q4 hrs. If unable to utilize MDI: HHN [physician-ordered bronchodilator(s)] TID and Albuterol PRN q4 hrs. Notify physician if condition deteriorates. MDI THERAPY with [physician-ordered bronchodilator(s)] via spacer TID PRN. If unable to utilize MDI: HHN [physician-ordered bronchodilator(s)] TID PRN. Notify physician if condition deteriorates. If Acuity Level is 2, 3, or 4 in any of the following: [] COUGH [] SURGICAL HISTORY (SURG HX) [x] CHEST XRAY (CXR) Goal: Improvement in sputum mobilization in patients with ineffective airway clearance. Reverse atelectasis. [x] Bronchopulmonary Hygiene Protocol Total Acuity: 14-28 [] Secondary Assessment in 24 hrs Total Acuity: 9-13 [] Secondary Assessment in 24 hrs Total Acuity: 4-8 [] Secondary Assessment in 24 hrs Total Acuity: 0-3 [x] Secondary Assessment in 48 hrs METANEB QID with [physician-ordered bronchodilator(s)] if CXR Acuity = 4; otherwise: PD&P, Oscillatory Therapy, or Vest QID & PRN AND PEP QID & PRN NT Sxn PRN for ineffective cough METANEB QID with [physician-ordered bronchodilator(s)] if CXR Acuity = 4; otherwise: PD&P, Oscillatory Therapy or Vest QID & PRN AND PEP QID & PRN NT Sxn PRN for ineffective cough PD&P, Oscillatory Therapy, or Vest TID & PRN AND PEP TID & PRN Instruct patient to self-perform IS q1hr WA If Acuity Level is 2 or above in the following: [] PULMONARY HISTORY (PULM HX) Goal: Assist patient in quitting smoking to slow or stop the progression of lung disease. [] Smoking Cessation Protocol SMOKING CESSATION EDUCATION provided according to policy RT_201: (jeanette with an X) ____Yes ____ No ____ NA Smoking Cessation Booklet given: ____Yes ____No ____Patient Refused * Georgie Serra RN - 04/21/2024 2:45 PM EST Patient pulled his right hand IV out at this time. Paty RN and Iveth RN to bedside and Paty BHATT started new IV to left upper forearm. IV fluids restarted through new IV. Care ongoing. * Georgie Serra RN - 04/21/2024 12:30 PM EST Service Coordinator Elderly Facility received call from radiology at this time who states that patient will need to have another x-ray taken at 2000 tonight so patient will have to be disconnected from his NG tube until then. * Roque Ortega SHANTI - 04/21/2024 10:32 AM EST Occupational Therapy Facility/Department: [facility] Daily Treatment Note NAME: Amol Taylor : 1955 Date of Service: 04/21/2024 Discharge Recommendations: Continue to assess pending progress, 24 hour supervision or assist, Shelter Care with OT, Subacute/Fci Facility Patient Diagnosis(es): The encounter diagnosis was Intestinal obstruction, unspecified cause, unspecified whether partial or complete (HCC). Assessment Assessment: Pt in bed upon arrival with being very confused and disoriented x4 Activity Tolerance: Treatment limited secondary to decreased cognition;Treatment limited secondary to agitation Discharge Recommendations: Continue to assess pending progress;24 hour supervision or assist;Shelter Care with OT;Subacute/Fci Facility Plan Occupational Therapy Plan Times Per Day: Once a day Current Treatment Recommendations: Strengthening;ROM;Balance training;Functional mobility training;Endurance training;Safety education & training;Patient/Caregiver education & training;Self-Care / ADL Restrictions Disoriented x4, Fall risk. Subjective Subjective Subjective: Pt lying in bed upon arrival. PtNuring and real estate underwriter checked brief, no incontience. Attempted AAROM with patient, patient squeezing therapists hands very hard throughout. Pain: Unable to verbalized Orientation Overall Orientation Status: Impaired Orientation Level: Disoriented X4 Objective Vitals Bed Mobility Training Bed Mobility Training: No Transfer Training Transfer Training: No Gait Gait Training: No OT Exercises Exercise Treatment: Attempted AAROM with LUE x 3 planes x 15 reps with patient guarding throughout and squeezing therapists hands very hard throughout session. Maxcueing needed to participate Safety Devices Type of Devices: Nurse notified;Call light within reach;All fall risk precautions in place;Patient at risk for falls;Bed alarm in place;Left in bed Patient Education Education Given To: Patient Education Provided: Role of Therapy;Plan of Care Education Method: Verbal Barriers to Learning: Cognition Education Outcome: Continued education needed Goals Short Term Goals Time Frame for Short Term Goals: 21 visits Short Term Goal 1: Pt caregiver to be educated on d/c folder, AE/DME, and home safety to ensure safe and indep return home. Short Term Goal 2: Pt to complete functional transfers during ADLs with no more than Min A and goodsafety awareness to increase independence with toileting and showering. Short Term Goal 3: Pt to engage in BUE ther ex with supervision and mod VC for technique to increase overall strength and endurance for ease with functional tfers and ADLs. AM-PAC - ADL Therapy Time Individual Concurrent Group Co-treatment Time In 1011 Time Out 1025 Minutes 14 SHANTI Rudd * Katiana Campos RD, LD - 04/21/2024 9:46 AM EST Comprehensive Nutrition Assessment Type and Reason for Visit: Initial Nutrition Recommendations/Plan: Continue NPO diet. Progress to puree with honey thickened liquids diet. Malnutrition Assessment: Malnutrition Status: At risk for malnutrition (04/21/24 0946) Context: Acute Illness Findings of the 6 clinical characteristics of malnutrition: Energy Intake: Mild decrease in energy intake (NPO since admission x 3 days) Weight Loss: No weight loss Body Fat Loss: No body fat loss Muscle Mass Loss: No muscle mass loss Fluid Accumulation: Mild Extremities (BLE non pitting edema) Zoning Engineer Strength: Not Performed Nutrition Assessment: Inadequate oral intakes r/t altered GI function aeb NPO. Pt with NGT, Pt states he feels fine. Historically he was on a puree with honey thick liquids diet at last admission. Education is not appropriate. Nutrition Related Findings: hypoactive bowel sounds, non pitting BLE edema Wound Type: None Current Nutrition Intake & Therapies: Average Meal Intake: NPO Average Supplements Intake: NPO Diet NPO Anthropometric Measures: Height: 177.8 cm (5' 10 ) [place] Body Weight (IBW): 166 lbs (75 kg) Admission Body Weight: 91.1 kg (200 lb 14 oz) Current Body Weight: 91.4 kg (201 lb 8 oz), 121.4 % IBW. Weight Source: Bed scale Current BMI (kg/m2): 28.9 Usual Body Weight: 74.9 kg (165 lb 2 oz) % Weight Change (Calculated): 22 Weight Adjustment For: No Adjustment BMI Categories: Overweight (BMI 25.0-29.9) Estimated Daily Nutrient Needs: Energy Requirements Based On: Kcal/kg Weight Used for Energy Requirements: Current Energy (kcal/day): 3604-8688 (20-23/kg) Weight Used for Protein Requirements: [place] Protein (g/day): 90-105g (1.2-1.4g/kg) Method Used for Fluid Requirements: 1 ml/kcal Fluid (ml/day): 2,100 ml Hematology: Recent Labs 04/19/24 1215 04/20/24 0645 04/21/24 0620 WBC 18.7* 12.5* 11.1 HGB 15.3 13.9 12.3* HCT 46.5 42.4 38.1* Chemistry: Recent Labs 04/19/24 1215 04/20/24 0645 04/21/24 0620 NA 143 146* 149* K 4.3 3.8 3.9 CL 104 109* 114* CO2 24 GLUCOSE 111* 104* 82 BUN 27* 36* 29* CREATININE 1.3* 1.1 0.8 CALCIUM 9.9 8.6 8.6 Recent Labs 04/19/24 1215 AST 18 ALT 13 ALKPHOS 215* BILITOT 0.3 LIPASE 34 Lab Results Component Value Date VITD25 28.6 (L) 10/31/2018 Nutrition Diagnosis: Inadequate oral intake related to altered GI function as evidenced by NPO or clear liquid status due to medical condition Nutrition Interventions: Food and/or Nutrient Delivery: Continue NPO Nutrition Education/Counseling: Education/Counseling not appropriate Coordination of Nutrition Care: Continue to monitor while inpatient Plan of Care discussed with: Patient Goals: Goals: Initiate PO diet Type of Goal: New goal Previous Goal Met: New Goal Nutrition Monitoring and Evaluation: Behavioral-Environmental Outcomes: Knowledge or Skill Food/Nutrient Intake Outcomes: Diet Advancement/Tolerance Physical Signs/Symptoms Outcomes: Biochemical Data, Weight, GI Status Discharge Planning: Too soon to determine KATIANA CAMPOS RD, [place] Contact: [phone] * Zaria Lynn PTA - 04/21/2024 9:27 AM EST Physical Therapy Facility/Department: [facility] Daily Treatment Note NAME: Amol Taylor : 1955 Date of Service: 04/21/2024 Discharge Recommendations: Continue to assess pending progress Patient Diagnosis(es): The encounter diagnosis was Intestinal obstruction, unspecified cause, unspecified whether partial or complete (HCC). Assessment Assessment: Pt. in bed upon arrival, requested to keep pt. in bed at this time d/t having imaging this morning. Pt. completed supine BLE therex x10 in all planes. Pt. is resistive with attempts of PROM for completion of full ROM. Will attempt to transfer pt. later this afternoon if able. Will continue to progress as tolerated. Activity Tolerance: Patient tolerated treatment well;Treatment limited secondary to decreased cognition Plan Physical Therapy Plan General Plan: 2 times a day 7 days a week Specific Instructions for Next Treatment: 1x/daily on weekends and holidays Current Treatment Recommendations: Strengthening;Home exercise program;Balance training;Gait training;Therapeutic activities;Safety education & training;Functional mobility training;Neuromuscularre- education;Patient/Caregiver education & training;Endurance training;Transfer training Restrictions Restrictions/Precautions Restrictions/Precautions: Fall Risk, General Precautions Required Braces or Orthoses?: No Subjective Subjective Subjective: Pt. in bed upon arrival, agreeable to therapy at this time Pain: denies Objective Bed Mobility Training Bed Mobility Training: No Transfer Training Transfer Training: No Gait Gait Training: No PT Exercises Exercise Treatment: Supine BLE x15 in all available planes of motion Safety Devices Type of Devices: Nurse notified;Call light within reach;All fall risk precautions in place;Patient at risk for falls;Bed alarm in place;Left in bed Goals Short Term Goals Time Frame for Short Term Goals: 20 days Short Term Goal 1: Pt will be educated on his POC and HEP Short Term Goal 2: Pt will perform bed mobility and transfers with min A in order to return to PLOF Short Term Goal 3: Pt will ambulate 25 feet with LRAD Mod A in order to use the bathroom Short Term Goal 4: Pt will increase sitting balance to Fair + and standing balance to fair in orderto reduce fall risk Education Patient Education Education Given To: Patient Education Provided: Role of Therapy;Plan of Care Education Method: Verbal Barriers to Learning: Cognition Education Outcome: Continued education needed Therapy Time Individual Concurrent Group Co-treatment Time In 904 Time Out 09 Minutes 16 Zaria Lynn PTA Yana Ireland MD - 04/21/2024 7:48 AM EST Yana Cornejo M.D. Internal Medicine Progress Note Patient: Amol Taylor Date of Admission: 04/19/2024 9:01 AM Date of Evaluation: 04/21/2024 Subjective: Amol Taylor is a 69 y.o. male who is seen for f/u SBO. Pain is controlled. NGT remains in place. He denies any flatus or stool yet. Review of Systems: Constitutional:negative for fevers, and negative for chills. Respiratory: negative for shortness of breath, negative for cough, and negative for wheezing Cardiovascular: negative for chest pain, negative for palpitations, and negative for syncope Gastrointestinal: negative for abdominal pain, negative for nausea,negative for vomiting, negative for diarrhea, negative for constipation, and negative for hematochezia or melena Genitourinary: negative for dysuria, negative for urinary urgency, negative for urinary frequency, and negative for hematuria Neurological: negative for unilateral weakness, numbness or tingling. All other systems were reviewed with the patient and are negative except as stated above VITALS: Temp: 97.8 F (36.6 C) BP: (!) 155/79 Respirations: 20 Pulse: 86 SpO2: 95 % Weight Wt Readings from Last 3 Encounters: 04/21/24 91.4 kg (201 lb 6.4 oz) 02/07/24 89.6 kg (197 lb 8 oz) 07/24/23 79.4 kg (175 lb) Body mass index is 28.9 kg/m . EXAM: GEN: Awake and alert. Disoriented at baseline. EYES: EOMI, pupils equal NECK: Supple. No lymphadenopathy. No carotid bruit CVS: regular rate and rhythm, no audible murmur PULM: CTA, no wheezes, rales or rhonchi, no acute respiratory distress ABD: Bowels sounds quiet. Abdomen is soft. No distention. no tenderness to palpation. EXT: no edema bilaterally . No calf tenderness. NEURO: Moves all extremities. Motor and sensory are grossly intact SKIN: No rashes. No skin lesions. DATA: Complete Blood Count: Recent Labs 04/19/24121404/20/24 0645 04/21/24 0620 WBC 18.7* 12.5* 11.1 RBC 4.74 4.31 3.79* HGB 15.3 13.9 12.3* HCT 46.5 42.4 38.1* MCV 98.1 98.4 100.5 RDW 12.3 12.5 12.3 PLT 270 250 194 Recent Labs 04/19/24121404/20/24 0645 04/21/24 0620 NEUTROABS 16.05* 9.04* 8.28* LYMPHOPCT 8* 17* 15* LYMPHSABS 1.42 2.14 1.70 MONOPCT 6 9 8 BASOPCT 0 0 0 IMMGRAN 1* 0 0 Recent Blood Glucose: Recent Labs 04/19/24121404/20/24 0645 04/21/24 0620 GLUCOSE 111* 104* 82 Comprehensive Metabolic Profile: Recent Labs 04/19/24121404/20/24 0645 04/21/24 0620 BUN 27* 36* 29* CREATININE 1.3* 1.1 0.8 NA 143 146* 149* K 4.3 3.8 3.9 CL 104 109* 114* CALCIUM 9.9 8.6 8.6 ANIONGAP 14 12 11 CO2 25 25 24 BILITOT 0.3 -- -- ALKPHOS 215* -- -- AST 18 -- -- ALT 13 -- -- PT/INR: Lab Results Component Value Date/Time PROTIME 14.0 04/19/2024 12:15 PM INR 1.1 04/19/2024 12:15 PM Microbiology / Cultures: Results No results found for the last 336 hours. Imaging Data: XR ABDOMEN FOR NG/OG/NE TUBE PLACEMENT Result Date: 04/19/2024 EXAMINATION: ONE SUPINE XRAY VIEW(S) OF THE ABDOMEN 04/19/2024 2:47 pm COMPARISON: None. HISTORY: ORDERING SYSTEM PROVIDED HISTORY: Confirmation of course of NG/OG/NE tube and location of tip of tube TECHNOLOGIST PROVIDED HISTORY: Confirmation of course of NG/OG/NE tube and location of tip of tube Po rtable?->Yes FINDINGS: Enteric tube tip overlies the gastric body. Pathologically dilated loops of small bowel in the imaged abdomen consistent with obstruction. Gastric decompression tube tip overlies the gastric body CT ABDOMEN PELVIS W IV CONTRAST Additional Contrast? None Result Date: 04/19/2024 EXAMINATION: CT OF THE ABDOMEN AND PELVIS WITH CONTRAST 04/19/2024 2:58 pm TECHNIQUE: CT of the abdomen and pelvis was performed with the administration of intravenous contrast. Multiplanar reformatted images are provided for review. Automated exposure control, iterative reconstruction, and/or weight based adjustment of the mA/kV was utilized to reduce the radiation dose to as low as reasonably achievable. COMPARISON: 02/02/2024 HISTORY: ORDERING SYSTEM PROVIDED HISTORY: Vomiting history of small bowel obstruction TECHNOLOGIST PROVIDED HISTORY: Vomiting history of small bowel obstruction Decision Support Exception - unselect if not a suspected or confirmed emergency medical condition->Karo gency Medical Condition (MA) FINDINGS: Lower chest: Heart size is normal. Lungs are bibasilar atelectasis. Liver: Liver is normal density. No enhancing masses. Normal enhancement of the intrahepatic vasculature. Spleen: Normal size. No enhancing masses Pancreas: No enhancing masses. No ductal dilation. No adjacent fatty stranding. Gallbladder no calcified stones or sludge. No pericholecystic fluid. No wall thickening. Bile ducts: No biliary ductal dilation Adrenals: The adrenal glands are unremarkable Kidneys: Kidneys are normal in appearance. No hydronephrosis. No enhancing masses. Norenal stones. Appearance of the left kidney is unchanged. Calcified capsule in the subcapsular collection. The fluid collection is not showing enhancement GI: Stomach is largely distended and filled with fluid. Diffuse small bowel dilation. The distal small bowel is mildly decompressed but there is no truetransition point. Fluid in the colon. Abrupt transition in the transverse colon but a mass is not appreciated. There is a segment of the transverse colon is decompressed and the colon tear proximal to this is dilated and filled with gas. Gas and small amount of feces are seen in the remainder of the colon. But the colon is predominately decompressed. Is tortuous. Mesentery: No enlarged lymphadenopathy. No free fluid. No free gas. Aorta: Aorta is of normal size. Negative for dissection. IVC is diffusely flattened which may indicate dehydration..Celiac axis and SMA are patent. Portal vein is patent. PELVIS GI: No small bowel dilation. No colonic wall thickening. No enlarged lymphadenopathy. no free fluid in the pelvis. : The bladder is unremarkable in appearance. No large mass. Prostate is not enlarged. Phleboliths in the pelvis. Osseous: Spondylosis.. Old transverse process fractures. Old rib fractures. 1. Diffuse small bowel dilation. There is no true transition point. 2. Abrupt transition in the transverse colon. A mass is not appreciated. 3. Appearance of the left kidney is unchanged. XR CHEST PORTABLE Result Date: 04/19/2024 EXAMINATION: ONE XRAY VIEW OF THE CHEST 04/19/2024 10:10 am COMPARISON: 02/03/2024. HISTORY: ORDERING SYSTEM PROVIDED HISTORY: Coarse breath sounds following emesis TECHNOLOGIST PROVIDED HISTORY: Coarse breath sounds following emesis FINDINGS: Lung volumes are small. The cardiomediastinal silhouette pulmonary vessels are unremarkable. The patient is rotated to the left. No airspace consolidation or pleural effusion is identified. Hypoventilatory chest with no acute findings. MEDICAL DECISION MAKING: Primary Problem(s): Small bowel obstruction - recurrent Condition is stable Treatment plan: General Surgery consult appreciated: Discussed with Dr. Matilde REEVES placed in ER - continue LIWS Imaging: SBFT ordered f- ? Problems with machine per nursing report Medications: Continue Morphine PRN pain Continue Zofran prn nausea Medication Monitoring / High Risk Medications: Parenteral administration of controlled substance(s) Seizure disorder Condition is a chronic stable condition Treatment plan: Seizure precuations Medications: Diastat rectal gel PRN Hospital Prophylaxis: DVT: Lovenox Stress Ulcer: PPI and H2 klarissa MDM Data: Test interpretation: My independent EKG interpretation: Normal sinus rhythm with non-specific ST changes My independent X-ray interpretation: CXR shows no acute process Management and/or test interpretation discussed with Dr. [place] Consults and Nursing notes were personally reviewed and all current labs and imaging were personally reviewed Disposition: Shared decision making: All test results, treatment options and disposition options were discussed with the patient today Social determinants of health that may impact management: MRDD Code status: Full Code Disposition: pending Yana Cornejo MD , MPatricia. 04/21/2024 7:48 AM * Georgie Serra RN - 04/21/2024 6:51 AM EST Shift assessment and vitals obtained at this time as charted. Blood pressure slightly elevated, vitals otherwise WNL. Patient denies pain at this time. Patient is oriented to person only. Rhonchi heard throughout lung matta, HOB was elevated. Respirations unlabored. Abdomen rounded and distended with hypoactive bowel sounds throughout. No guarding noted to abdomen. NG tube remains in place and hooked up to low intermittent suction. Non-pitting edema noted to BLE. Assessment otherwise as charted, see flowsheets. Brief also changed at this time and gina-care provided due to incontinence of urine. Patient is resting in the bed with bed alarm on and call light in reach, denies other needs at this time. Care ongoing. * Marilu Colón RN - 04/20/2024 9:45 PM EST PT suction canister emptied, contents charted see flowsheets. Pericare preformed with the assistance of PCT, PT cooperative to care. PCT preformed oral hygiene and assisted with positioning PT comfortably. Call light in reach, tele-sitter active, care on-going. * Marilu Colón RN - 04/20/2024 6:45 PM EST Service Coordinator Elderly Facility at bedside for shift assessment. PT A&O to self only, they are able to answer questions and follow commands appropriately. Vitals and assessment completed as charted, see flowsheets. PT denies any other needs at this time and is resting comfortably. Call light in reach, bed in the lowestposition and locked, care on-going. * Zoila Ayala, OT - 04/20/2024 11:32 AM EST Occupational Therapy Facility/Department: [facility] Occupational Therapy Initial Assessment Name: Amol Taylor : 1955 Date of Service: 04/20/2024 Discharge Recommendations: Continue to assess pending progress, 24 hour supervision or assist, Display Associate Care with OT, Subacute/Fci Facility Patient Diagnosis(es): The encounter diagnosis was Intestinal obstruction, unspecified cause, unspecified whether partial or complete (HCC). Past Medical History: has a past medical history of Arthritis, BPH (benign prostatic hyperplasia), Dysphagia, GERD (gastroesophageal reflux disease), Hearing loss, HLD (hyperlipidemia), Insomnia, MR (mental retardation), Periorbital cellulitis, SBO (small bowel obstruction) (HCC), Seizures (HCC), Ve ntral hernia, and Vitamin D deficiency. Past Surgical History: has a past surgical history that includes Abdomen surgery (2012, 2013); laparoscopy (10/19/13); laparotomy (10/19/13); cast application (Left); Hydrocele surgery (10/2015); Vagusnerve stimulator insertion; and Vagus nerve stimulator insertion (12/14/2015). Assessment Performance deficits / Impairments: Decreased functional mobility ;Decreased endurance;Decreased coordination;Decreased ADL status;Decreased balance;Decreased strength;Decreased safe awareness;Decreased cognition Assessment: Pt is 69 y/o male with history of MRDD and admitted for small bowel obstruction. Pt wasevaluated for skilled OT need this date. Pt is considered poor historian, so unable to gather PLOF or social history in regards to patient prior level of assist for mobility and self care. Pt presents with increased weakness and requiring significant assistance of Mod-Max A of 1-2 for all functional transfers. Max assist for all self care. Pt would benefit from additional skilled therapy to ensure safe return to PLOF . Prognosis: Fair Decision Making: Medium Complexity REQUIRES OT FOLLOW-UP: Yes Activity Tolerance Activity Tolerance: Treatment limited secondary to decreased cognition Plan Occupational Therapy Plan Times Per Day: Once a day Days Per Week: 7 Days Current Treatment Recommendations: Strengthening, ROM, Balance training, Functional mobility training, Endurance training, Safety education & training, Patient/Caregiver education & training,Self-Care / ADL Restrictions Restrictions/Precautions Restrictions/Precautions: Fall Risk, General Precautions Required Braces or Orthoses?: No Subjective General Patient assessed for rehabilitation services?: Yes Social/Functional History Social/Functional History Lives With: Other (Comment) Prior Level of Assist for ADLs: Needs assistance Prior Level of Assist for Homemaking: Needs assistance Prior Level of Assist for Transfers: Needs assistance Additional Comments: Pt considered poor historian. Pt reports he uses wheelchair and gets help for all dressing and bathing. However, told PT earlier this date that he walks without AD. Unsure on pt PLOF in regards to functional mobility and level of assist required. Objective Temp: 97.4 F (36.3 C) Pulse: 88 Heart Rate Source: Monitor;Apical Respirations: 20 SpO2: 95 % O2 Device: None (Room air) BP: 137/89 MAP (Calculated): 105 BP Location: Left upper arm BP Method: Automatic Patient Position: Semi fowlers Observation/Palpation Observation: pt was wearing a helmet Safety Devices Type of Devices: Left in chair;Nurse notified;Call light within reach;Chair alarm in place;All fallrisk precautions in place;Patient at risk for falls;Gait belt Bed Mobility Training Bed Mobility Training: Yes Overall Level of Assistance: Partial/Moderate assistance;2 Person assistance Interventions: Safety awareness training;Verbal cues Supine to Sit: Partial/Moderate assistance;2 Person assistance Scooting: Partial/Moderate assistance;2 Person assistance Balance Sitting: Impaired Sitting - Static: Fair (occasional) Sitting - Dynamic: Fair (occasional) Standing: Impaired Standing - Static: Poor Standing - Dynamic: Poor Transfer Training Transfer Training: Yes Overall Level of Assistance: Partial/Moderate assistance;2 Person assistance Interventions: Verbal cues;Tactile cues Sit to Stand: Partial/Moderate assistance;2 Person assistance Stand to Sit: Partial/Moderate assistance;2 Person assistance Stand Pivot Transfers: Partial/Moderate assistance;2 Person assistance AROM: Generally decreased, functional PROM: Generally decreased, functional Strength: Generally decreased, functional Coordination: Generally decreased, functional Tone: Normal Sensation: Intact ADL Feeding: Minimal assistance Grooming: Moderate assistance UE Bathing: Moderate assistance LE Bathing: Maximum assistance UE Dressing: Moderate assistance LE Dressing: Maximum assistance Putting On/Taking Off Footwear: Maximum assistance Toileting: Maximum assistance Functional Mobility: Maximum assistance Functional Mobility Skilled Clinical Factors: Pt agreeable to sit<>stand transfers only at this time. Required Mod-Max A to complete sit to stand from recliner with cueing for hand placement, technique and posture. Pt unable to maintain weightbearing / standing or extend BLE fully. Heavy posterior lean and poor strength demoed. Poor follow through of education. Unsure on pt PLOF for transfers/mobility. Activity Tolerance Activity Tolerance: Patient tolerated evaluation without incident Cognition Cognition Comment: MRDD Orientation Overall Orientation Status: Impaired Orientation Level: Oriented to person;Disoriented to place;Disoriented to time;Disoriented to situation Education Given To: Patient Education Provided: Role of Therapy;Plan of Care Education Method: Verbal Barriers to Learning: Cognition Education Outcome: Continued education needed [facility] - ADL [facility] Daily Activity - Inpatient How much help is needed for putting on and taking off regular lower body clothing?: A Lot How much help is needed for bathing [...] much help for eating meals?: A Little [facility] Inpatient Daily Activity [facility]: [facility] AD[facility] T-Scale Score : 32.03 ADL Inpatient CMS 0-100% Score: 63.03 ADL Inpatient CMS G-Code Modifier : CL Goals Short Term Goals Time Frame for Short Term Goals: 21 visits Short Term Goal 1: Pt caregiver to be educated on d/c folder, AE/DME, and home safety to ensure safe and indep return home. Short Term Goal 2: Pt to complete functional transfers during ADLs with no more than Min A and goodsafety awareness to increase independence with toileting and showering. Short Term Goal 3: Pt to engage in BUE ther ex with supervision and mod VC for technique to increase overall strength and endurance for ease with functional tfers and ADLs. Therapy Time Individual Concurrent Group Co-treatment Time In 1038 Time Out 1050 Minutes 12 Zoila Ayala, HEMANTH, OTR/L * Dinora Larkin, PT - 04/20/2024 9:39 AM EST Physical Therapy Facility/Department: [facility] Physical Therapy Initial Assessment Name: Amol Taylor : 1955 Date of Service: 04/20/2024 Discharge Recommendations: Continue to assess pending progress Patient Diagnosis(es): The encounter diagnosis was Intestinal obstruction, unspecified cause, unspecified whether partial or complete (HCC). Past Medical History: has a past medical history of Arthritis, BPH (benign prostatic hyperplasia), Dysphagia, GERD (gastroesophageal reflux disease), Hearing loss, HLD (hyperlipidemia), Insomnia, MR (mental retardation), Periorbital cellulitis, SBO (small bowel obstruction) (HCC), Seizures (HCC), Ve ntral hernia, and Vitamin D deficiency. Past Surgical History: has a past surgical history that includes Abdomen surgery (2012, 2013); laparoscopy (10/19/13); laparotomy (10/19/13); cast application (Left); Hydrocele surgery (10/2015); Vagusnerve stimulator insertion; and Vagus nerve stimulator insertion (12/14/2015). Assessment Body Structures, Functions, Activity Limitations Requiring Skilled Therapeutic Intervention: Decreased functional mobility ;Decreased endurance;Decreased balance;Decreased tolerance to work activity;Decreased high-level IADLs;Decreased strength;Decreased safe awareness Assessment: Pt is a 69 year old male that was referred to PT due to general weakness, decreased balance and requiring more assistance for transfers and ambulation. Pt will benefit from skilled PT in order to address these deficits Treatment Diagnosis: general weakness Specific Instructions for Next Treatment: 1x/daily on weekends and holidays Therapy Prognosis: Fair Decision Making: Medium Complexity Requires PT Follow-Up: Yes Activity Tolerance Activity Tolerance: Patient tolerated evaluation without incident Plan Physical Therapy Plan General Plan: 2 times a day 7 days a week Specific Instructions for Next Treatment: 1x/daily on weekends and holidays Current Treatment Recommendations: Strengthening, Home exercise program, Balance training, Gait training, Therapeutic activities, Safety education & training, Functional mobility training, Neuromuscular re-education, Patient/Caregiver education & training, Endurance training, Transfer training Safety Devices Type of Devices: Left in chair, Nurse notified, Call light within reach, Chair alarm in place, All fall risk precautions in place, Patient at risk for falls Restrictions Restrictions/Precautions Restrictions/Precautions: Fall Risk Subjective General Chart Reviewed: Yes Response To Previous Treatment: Not applicable Family/Caregiver Present: No Referring Practitioner: Dr. Cornejo Referral Date : 04/20/24 Diagnosis: SBO Subjective Subjective: Pt agreeable to Pt eval and transferring to chair Social/Functional History Social/Functional History Lives With: Other (Comment) (lives in [facility]) Prior Level of Assist for ADLs: Needs assistance Prior Level of Assist for Homemaking: Needs assistance Additional Comments: poor historian, pt sttes he walks without a walker Vision/Hearing Cognition Orientation Overall Orientation Status: Impaired Objective Temp: 97.4 F (36.3 C) Pulse: 88 Heart Rate Source: Monitor;Apical Respirations: 20 SpO2: 95 % O2 Device: None (Room air) BP: 137/89 MAP (Calculated): 105 BP Location: Left upper arm BP Method: Automatic Patient Position: Semi fowlers Observation/Palpation Observation: pt was wearing a helmet Gross Assessment AROM: Generally decreased, functional Strength: Grossly decreased, non-functional Bed Mobility Training Bed Mobility Training: Yes Overall Level of Assistance: Partial/Moderate assistance;2 Person assistance Interventions: Safety awareness training;Verbal cues Supine to Sit: Partial/Moderate assistance;2 Person assistance Scooting: Partial/Moderate assistance;2 Person assistance Balance Sitting: Impaired Sitting - Static: Fair (occasional) Sitting - Dynamic: Fair (occasional) Standing: Impaired Standing - Static: Poor Standing - Dynamic: Poor Transfer Training Transfer Training: Yes Overall Level of Assistance: Partial/Moderate assistance;2 Person assistance Interventions: Verbal cues;Tactile cues Sit to Stand: Partial/Moderate assistance;2 Person assistance Stand to Sit: Partial/Moderate assistance;2 Person assistance Stand Pivot Transfers: Partial/Moderate assistance;2 Person assistance OutComes Score AM-PAC - Mobility AM-PAC Mobility without Stair Climbing Inpatient How much difficulty turning over in bed?: A Lot How much difficulty sitting down on / standing up from a chair with arms?: A Lot How much difficulty moving from lying on back to sitting on side of bed?: A Lot How much help from another person moving to and from a bed to a chair?: A Lot How much help from another person needed to walk in hospital room?: Total AM-PAC Inpatient Mobility without Stair Climbing Raw Score : 9 AM-PAC Inpatient without Stair Climbing T-Scale Score : 32.44 Mobility Inpatient CMS 0-100% Score: 76.07 Mobility Inpatient without Stair CMS G-Code Modifier : CL Tinneti Score Goals Short Term Goals Time Frame for Short Term Goals: 20 days Short Term Goal 1: Pt will be educated on his POC and HEP Short Term Goal 2: Pt will perform bed mobility and transfers with min A in order to return to PLOF Short Term Goal 3: Pt will ambulate 25 feet with LRAD Mod A in order to use the bathroom Short Term Goal 4: Pt will increase sitting balance to Fair + and standing balance to fair in orderto reduce fall risk Education Patient Education Education Given To: Patient Education Provided: Role of Therapy;Plan of Care Therapy Time Individual Concurrent Group Co-treatment Time In 0832 Time Out 0850 Minutes 18 Dinora Larkin, PT * Maricruz Rapp RN - 04/19/2024 10:25 PM EST Service Coordinator Elderly Facility called guardian for updates per request of the [facility]. She informed real estate underwriter that pt has aVNS implant for seizures and there should be a magnet in pts belongings. * Maricruz Rapp RN - 04/19/2024 10:02 PM EST Spoke with [facility] about pt condition all questions answered. * Melany Rios RCP - 04/19/2024 9:05 PM EST RESPIRATORY ASSESSMENT PROTOCOL Patient Name: Amol Taylor Room#: 0316/0316-01 : 1955 Admitting diagnosis: Small bowel obstruction (HCC) [K56.609] Intestinal obstruction, unspecified cause, unspecified whether partial or complete (HCC) [K56.605] Medical History: Past Medical History: Diagnosis Date Arthritis BPH (benign prostatic hyperplasia) Dysphagia GERD (gastroesophageal reflux disease) Hearing loss HLD (hyperlipidemia) Insomnia MR (mental retardation) Periorbital cellulitis SBO (small bowel obstruction) (HCC) Seizures (HCC) Epilepsy Ventral hernia Vitamin D deficiency PATIENT ASSESSMENT LABORATORY DATA Hematology: Lab Results Component Value Date/Time WBC 18.7 04/19/2024 12:15 PM RBC 4.74 04/19/2024 12:15 PM RBC 3.43 10/31/2010 11:48 AM HGB 15.3 04/19/2024 12:15 PM HCT 46.5 04/19/2024 12:15 PM PLT 270 04/19/2024 12:15 PM PLT 206 10/31/2010 11:48 AM Chemistry: No results found for: PHART , VTR8ZJS , PO2ART , T7BSHECE , SWF4HAS , PBEA , NBEA VITALS Pulse: (!) 111 Respirations: 25 BP: (!) 143/96 SpO2: 92 % O2 Device: Nasal cannula Temp: 98.2 F (36.8 C) SKIN COLOR [x] Normal [] Pale [] Dusky [] Cyanotic RESPIRATORY PATTERN [x] Normal [] Dyspnea [] Piero-Fajardo [] Kussmaul [] Biots AMBULATORY [] Yes [x] No [x] With Assistance Patient Acuity 0 1 2 3 4 Score Level of Consciousness (LOC) [x] Alert & Oriented or Pt normal LOC [] Confused;follows directions [] Confused & uncooper-ative [] Obtunded [] Comatose 0 Respiratory Rate (RR) [x] Reg. rate & pattern. 12 - 20 bpm [] Increased RR. Greater than 20 bpm [] SOB w/ exertion or RR greater than 24 bpm [] Access- ory muscle use at rest. Abn. resp. [] SOB at rest. 0 Bilateral Breath Sounds (BBS) [x] Clear [] Diminish-ed bases [] Diminish-ed t/o, or rales [] Sporadic, scattered wheezes or rhonchi [] Persistentwheezes and, or absent BBS 0 Cough [x] Strong, effective, & non-prod. [] Effective & prod. Less than 25 ml (2 TBSP) over past 24 hrs [] Ineffective & non-prod to less than 25 ML over past 24 hrs [] Ineffective and, or greater than 25 ml sputum prod. past 24 hrs. [] Nonspon- taneous; Requires suctioning 0 Pulmonary History (PULM HX) [x] No smoking and no chronic pulmonary history [] Former smoker. Quit over 12 mos. ago [] Current smoker or quit w/ in 12 mos [] Pulm. History and, or 20 pk/yr smoking hx [] Admitted w/ acute pulm. dx and, or has been admitted w/ pulm. dx 2 or more times over past 12 mos 0 Surgical History this Admit (SURG HX) [x] No surgery [] General surgery [] Lower abdominal [] Thoracic or upper abdominal [] Thoracic w/ pulm. disease 0 Chest X-Ray (CXR)/CT Scan [] Clear or not applicable [] Not available [x] Atelectasis or pleural effusions [] Localized infiltrate or pulm. edema [] Con-solidated Infiltrates, bilateral, or in more than 1 lobe 2 TOTAL ACUITY: 2 CARE PLAN If Acuity Level is 2, 3, or 4 in any of the following: [] BILATERAL BREATH SOUNDS (BBS) [] PULMONARY HISTORY (PULM HX) [] Respiratory Rate (RR) Goal: Improve respiratory functions in patients with airway disease and decrease WOB [] AEROSOL PROTOCOL Total Acuity: 14-28 [] Secondary Assessment in 24 hrs Total Acuity: 9-13 [] Secondary Assessment in 24 hrs Total Acuity: 4-8 [] Secondary Assessment in 24 hrs Total Acuity: 0-3 [] Secondary Assessment in 48 hrs HHN AEROSOL THERAPY with [physician-ordered bronchodilator(s)] q 4 & Albuterol PRN q2 hrs. Breath-Actuated Neb if BBS Acuity = 4, and pt. can use MP. Notify physician if condition deteriorates. HHN AEROSOL THERAPY with [physician-ordered bronchodilator(s)] QID and Albuterol PRN q4 hrs. Breath-Actuated Neb if BBS Acuity = 4, and pt. can use MP. Notify physician if condition deteriorates. MDI THERAPY with 2 actuations of [physician-ordered bronchodilator(s)] via spacer TID Albuterol and PRN q4 hrs. If unable to utilize MDI: HHN [physician-ordered bronchodilator(s)] TID and Albuterol PRN q4 hrs. Notify physician if condition deteriorates. MDI THERAPY with [physician-ordered bronchodilator(s)] via spacer TID PRN. If unable to utilize MDI: HHN [physician-ordered bronchodilator(s)] TID PRN. Notify physician if condition deteriorates. If Acuity Level is 2, 3, or 4 in any of the following: [] COUGH [] SURGICAL HISTORY (SURG HX) [x] CHEST XRAY (CXR) Goal: Improvement in sputum mobilization in patients with ineffective airway clearance. Reverse atelectasis. [x] Bronchopulmonary Hygiene Protocol Total Acuity: 14-28 [] Secondary Assessment in 24 hrs Total Acuity: 9-13 [] Secondary Assessment in 24 hrs Total Acuity: 4-8 [] Secondary Assessment in 24 hrs Total Acuity: 0-3 [x] Secondary Assessment in 48 hrs METANEB QID with [physician-ordered bronchodilator(s)] if CXR Acuity = 4; otherwise: PD&P, Oscillatory Therapy, or Vest QID & PRN AND PEP QID & PRN NT Sxn PRN for ineffective cough METANEB QID with [physician-ordered bronchodilator(s)] if CXR Acuity = 4; otherwise: PD&P, Oscillatory Therapy or Vest QID & PRN AND PEP QID & PRN NT Sxn PRN for ineffective cough PD&P, Oscillatory Therapy, or Vest TID & PRN AND PEP TID & PRN Instruct patient to self-perform IS q1hr WA If Acuity Level is 2 or above in the following: [] PULMONARY HISTORY (PULM HX) Goal: Assist patient in quitting smoking to slow or stop the progression of lung disease. [] Smoking Cessation Protocol SMOKING CESSATION EDUCATION provided according to policy RT_201: (jeanette with an X) ____Yes ____ No ____ NA Smoking Cessation Booklet given: ____Yes ____No ____Patient Refused * Maricruz Rapp RN - 04/19/2024 6:57 PM EST Pt arrived to floor via stretcher, report received from Kathy BHATT. Admission assessment and vitals completed. Service Coordinator Elderly Facility attempted to complete admission navigator but pt only oriented to self. Medication list completed with packet from [facility]. NG connected to low intermittent suction. Call light in reach. * Kathy Llamas RN - 04/19/2024 6:27 PM EST Report given to Maricruz at this time. * Ilana Clayton DO - 04/19/2024 6:12 PM EST Images from the original note were not included. Patient known to me. Seen by several surgeons here in the past as well. Recurrent sbo. Hemodynamically stable. NGT to LIS for decompression. Therapeutic gastrograffin sbft study ordered for am via ngt. Mild mental retardation, cooperative, prior ex laps in past/partial bowel resections large and small bowel segmental resections in the past [address] ago[address] with [address] Cornejo. Further recommendations to follow. He has known small bowel adhesions that contribute to partial sbos that typically resolve with NGT and GG SBFT. There is large bowel gas/ileus/possible Ogilvies on imaging. Await sbft study. Labs improved. Serial abdominal exams needed/ngt output I/Os noted- I have not yet seen this patient on this admission Dr. Clayton documented in this [facility]Bon [facility] Hospital course Narrative* Joie-Dorota Acosta APRN - OTONIEL - 04/23/2024 10:01 AM EST Images from the original note were not included. Discharge Summary Amol Taylor : 1955 Admit date: 04/19/2024 Discharge date: 04/23/2024 Admitting Physician: Yana Cornejo MD Discharge Diagnoses: Principal Problem: Small bowel obstruction (HCC) Active Problems: MR (mental retardation), severe S/P placement of VNS (vagus nerve stimulation) device Seizure disorder (HCC) Resolved Problems: * No resolved hospital problems. * Hospital Course: Amol Taylor is a 69 y.o. male SBO. Patient presented to the emergency room with possible hematic emesis. Patient has history of bowel resection and recurrent small bowel obstructions. CT in the emergency room showed dilated small bowel loops and NG was placed for decompression. General surgery was consulted. Patient was admitted labs monitored electrolytes replaced. Patient hadnasogastric tube in for several days. Patient completed small bowel follow-through and obstruction was cleared. Diet was advanced he is tolerated well. Hemodynamically stable. Plan will be to discharge today back to [place]. Consultants: Dr. Clayton, gen surg Procedures: none Complications: none Discharge Condition: fair Exam: GEN: Awake, alert and oriented x3. [...] Studies: Lab Results Component Value Date WBC 7.4 04/23/2024 HGB 11.8 (L) 04/23/2024 PLT 195 04/23/2024 Lab Results Component Value Date BUN 20 04/23/2024 CREATININE 0.8 04/23/2024 NA 150 (H) 04/23/2024 K 3.9 04/23/2024 CALCIUM 8.6 04/23/2024 CL 116 (H) 04/23/2024 CO2 25 04/23/2024 LABGLOM >90 04/23/2024 Lab Results Component Value Date WBCUA 0 TO 2 06/11/2023 RBCUA None 06/11/2023 LEUKOCYTESUR NEGATIVE 06/11/2023 GLUCOSEU NEGATIVE 06/11/2023 KETUA NEGATIVE 06/11/2023 PROTEINU NEGATIVE 06/11/2023 HGBUR NEGATIVE 06/11/2023 CASTUA NOT REPORTED 12/05/2018 BACTERIA TRACE (A) 06/11/2023 YEAST NOT REPORTED 12/05/2018 XR ABDOMEN FOR NG/OG/NE TUBE PLACEMENT Result Date: 04/19/2024 EXAMINATION: ONE SUPINE XRAY VIEW(S) OF THE ABDOMEN 04/19/2024 2:47 pm COMPARISON: None. HISTORY: ORDERING SYSTEM PROVIDED HISTORY: Confirmation of course of NG/OG/NE tube and location of tip of tube TECHNOLOGIST PROVIDED HISTORY: Confirmation of course of NG/OG/NE tube and location of tip of tube Po rtable?->Yes FINDINGS: Enteric tube tip overlies the gastric body. Pathologically dilated loops of small bowel in the imaged abdomen consistent with obstruction. Gastric decompression tube tip overlies the gastric body CT ABDOMEN PELVIS W IV CONTRAST Additional Contrast? None Result Date: 04/19/2024 EXAMINATION: CT OF THE ABDOMEN AND PELVIS WITH CONTRAST 04/19/2024 2:58 pm TECHNIQUE: CT of the abdomen and pelvis was performed with the administration of intravenous contrast. Multiplanar reformatted images are provided for review. Automated exposure control, iterative reconstruction, and/or weight based adjustment of the mA/kV was utilized to reduce the radiation dose to as low as reasonably achievable. COMPARISON: 02/02/2024 HISTORY: ORDERING SYSTEM PROVIDED HISTORY: Vomiting history of small bowel obstruction TECHNOLOGIST PROVIDED HISTORY: Vomiting history of small bowel obstruction Decision Support Exception - unselect if not a suspected or confirmed emergency medical condition->Karo gency Medical Condition (MA) FINDINGS: Lower chest: Heart size is normal. Lungs are bibasilar atelectasis. Liver: Liver is normal density. No enhancing masses. Normal enhancement of the intrahepatic vasculature. Spleen: Normal size. No enhancing masses Pancreas: No enhancing masses. No ductal dilation. No adjacent fatty stranding. Gallbladder no calcified stones or sludge. No pericholecystic fluid. No wall thickening. Bile ducts: No biliary ductal dilation Adrenals: The adrenal glands are unremarkable Kidneys: Kidneys are normal in appearance. No hydronephrosis. No enhancing masses. Norenal stones. Appearance of the left kidney is unchanged. Calcified capsule in the subcapsular collection. The fluid collection is not showing enhancement GI: Stomach is largely distended and filled with fluid. Diffuse small bowel dilation. The distal small bowel is mildly decompressed but there is no truetransition point. Fluid in the colon. Abrupt transition in the transverse colon but a mass is not appreciated. There is a segment of the transverse colon is decompressed and the colon tear proximal to this is dilated and filled with gas. Gas and small amount of feces are seen in the remainder of the colon. But the colon is predominately decompressed. Is tortuous. Mesentery: No enlarged lymphadenopathy. No free fluid. No free gas. Aorta: Aorta is of normal size. Negative for dissection. IVC is diffusely flattened which may indicate dehydration..Celiac axis and SMA are patent. Portal vein is patent. PELVIS GI: No small bowel dilation. No colonic wall thickening. No enlarged lymphadenopathy. no free fluid in the pelvis. : The bladder is unremarkable in appearance. No large mass. Prostate is not enlarged. Phleboliths in the pelvis. Osseous: Spondylosis.. Old transverse process fractures. Old rib fractures. 1. Diffuse small bowel dilation. There is no true transition point. 2. Abrupt transition in the transverse colon. A mass is not appreciated. 3. Appearance of the left kidney is unchanged. XR CHEST PORTABLE Result Date: 04/19/2024 EXAMINATION: ONE XRAY VIEW OF THE CHEST 04/19/2024 10:10 am COMPARISON: 02/03/2024. HISTORY: ORDERING SYSTEM PROVIDED HISTORY: Coarse breath sounds following emesis TECHNOLOGIST PROVIDED HISTORY: Coarse breath sounds following emesis FINDINGS: Lung volumes are small. The cardiomediastinal silhouette pulmonary vessels are unremarkable. The patient is rotated to the left. No airspace consolidation or pleural effusion is identified. Hypoventilatory chest with no acute findings. Assessment and Plan: Patient Active Problem List Diagnosis Date Noted Small bowel obstruction (HCC) 04/19/2024 Pneumatosis intestinalis 05/01/2023 Seizure disorder (HCC) 02/12/2023 S/P placement of VNS (vagus nerve stimulation) device 02/11/2023 Dysphagia 02/11/2023 Intellectual disability 02/10/2023 AFTAB (obstructive sleep apnea) 10/11/2016 MR (mental retardation), severe 10/20/2013 Discharge Medications: Medication List CHANGE how you take these medications * ondansetron 4 MG disintegrating tablet Commonly known as: ZOFRAN-ODT What changed: Another medication with the same name was added. Make sure you understand how and when to take each. * ondansetron 4 MG disintegrating tablet Commonly known as: ZOFRAN-ODT Take 1 tablet by mouth 3 times daily as needed for Nausea or Vomiting What changed: You were already taking a medication with the same name, and this prescription was added. Make sure you understand how and when to take each. * This list has 2 medication(s) that are the same as other medications prescribed for you. Read thedirections carefully, and ask your doctor or other care provider to review them with you. CONTINUE taking these medications benzonatate 100 MG capsule Commonly known as: TESSALON calcium carbonate 500 MG chewable tablet Commonly known as: TUMS Debrox 6.5 % otic solution Generic drug: carbamide peroxide diazePAM 20 MG Gel Commonly known as: DIASTAT finasteride 5 MG tablet Commonly known as: PROSCAR hydrOXYzine HCl 25 MG tablet Commonly known [...] KEPPRA Take 2 tablets by mouth daily linaclotide 145 MCG capsule Commonly known as: LINZESS Take 1 capsule by mouth every morning (before breakfast) LORazepam 0.5 MG tablet Commonly known as: ATIVAN magnesium oxide 400 (240 Mg) MG tablet Commonly known as: MAG-OX meclizine 25 MG tablet Commonly known as: ANTIVERT melatonin 3 MG Tabs tablet olopatadine 0.2 % Soln ophthalmic solution Commonly known as: PATADAY pantoprazole 40 MG tablet Commonly known as: PROTONIX Take 1 tablet by mouth every morning (before breakfast) * primidone 250 MG tablet Commonly known as: MYSOLINE * primidone 250 MG tablet Commonly known as: MYSOLINE ProAir HFA 108 (90 Base) MCG/ACT inhaler Generic drug: albuterol sulfate HFA sennosides-docusate sodium 8.6-50 MG tablet Commonly known as: SENOKOT-S tamsulosin 0.4 MG capsule Commonly known as: FLOMAX vitamin B-12 1000 MCG tablet Commonly known as: CYANOCOBALAMIN Vitamin D 25 MCG (1000 UT) Tabs tablet Commonly known as: CHOLECALCIFEROL * This list has 6 medication(s) that are the same as other medications prescribed for you. Read thedirections carefully, and ask your doctor or other care provider to review them with you. Where to Get Your Medications These medications were sent to [facility], [facility] - [place], [place] - [address] - P [phone] - F [phone] [address], [place] [address] ondansetron 4 MG disintegrating tablet Patient Instructions: Activity: activity as tolerated Diet: Pur ed Wound Care: none needed Other: None Disposition: DC to [place] Follow up: Patient will be followed by Carson Dior MD in 1-2 weeks CORE MEASURES on Discharge (if applicable) JASON/ARB in CHF: NA Statin in VT: NA ASA in VT: NA Statin in CVA: NA Antiplatelet in CVA: NA Total time spent on discharge services: 40 minutes Including the following activities: Evaluation and Management of patient Discussion with patient and/or surrogate about current care plan Coordination with Case Management and/or Staff Certified Nurse Midwife Coordination of care with Consultants (if applicable) Coordination of care with Receiving Facility Physician (if applicable) Completion of DME forms (if applicable) Preparation of Discharge Summary Preparation of Medication Reconciliation Preparation of Discharge Prescriptions Signed: Dorota Woodson APRN - PATTERN PAINTER, RAISA, PRODUCTION WOOD CRAFTSMAN-C 04/23/2024, 10:01 AM Please note that this chart was generated using voice recognition [employer] dictation software. Although every effort was made to ensure the accuracy of this automated driller and broacher, some errors in driller and broacher may have occurred. Associated attestation - Yana Cornejo MD - 04/23/2024 12:57 PM EST Yana Cornejo M.D. Internal Medicine PA/PRODUCTION WOOD CRAFTSMAN Discharge Summary Attestation Patient: Amol Taylor I personally evaluated and examined the patient [id number] in conjunction with the PA/PRODUCTION WOOD CRAFTSMAN and agree with the management and dispostition of the patient. Please see the PA/PRODUCTION WOOD CRAFTSMAN's note for full details.My gee findings are: Admission date: 04/19/2024 Discharge date: 04/23/2024 Discharge Diagnosis: Principal Problem: Small bowel obstruction (HCC) Active Problems: Seizure disorder (HCC) S/P placement of VNS (vagus nerve stimulation) device MR (mental retardation), severe Resolved Problems: * No resolved hospital problems. * Exam: GEN: Awake and alert. No acute distress . EYES: EOMI, pupils equal NECK: Supple. No [...] intact SKIN: No rashes. No skin lesions. Disposition: Discharge to [place] Follow Up: Follow up with Carson Dior MD in 1-2 weeks Total time spent on discharge services: 40 minutes Including the following activities: Evaluation and Management of patient Discussion with patient and/or surrogate about current care plan Coordination with Case Management and/or Staff Certified Nurse Midwife Coordination of care with Consultants (if applicable) Coordination of care with Receiving Facility Physician (if applicable) Completion of DME forms (if applicable) Preparation of Discharge Summary Preparation of Medication Reconciliation Preparation of Discharge Prescriptions Yana Cornejo MD , M.D. 04/23/2024 12:56 PM documented in this encounterBon [facility] Discharge instructions* Discharge Instructions* Paty [place] MD - 04/19/2024 1:53 PM EST Continue current medications as prescribed. Use Zofran every 8 hours as needed for nausea or vomiting follow-up with your primary care provider in 3 to 5 days if symptoms not resolve you must seek medical attention immediately for any worsening symptoms or any acute concern * Discharge Instr - JOYCE* Ann Tovar LSW - 04/23/2024 10:03 AM EST Continuity of Care Form Patient Name: Amol Taylor : 1955 Admit date: 04/19/2024 Discharge date: 04/23/2024 Code Status Order: Full Code Advance Directives: Advance Care Flowsheet Documentation Admitting Physician: Yana Cornejo MD PCP: Carson Dior MD Discharging Nurse: Georgie Serra RN Discharging Hospital Unit/Room#: 0316/0316-01 Discharging Unit Emergency Contact: Extended Emergency Contact Information Primary Emergency Contact: Susan Smith [address]: [address] [place] [address] Relation: Legal Guardian Secondary Emergency Contact: Eliazar [...] Problems: Patient Active Problem List Diagnosis Code MR (mental retardation), severe F72 AFTAB (obstructive sleep apnea) G47.33 Intellectual disability F79 S/P placement of VNS (vagus nerve stimulation) device Z96.89 Dysphagia R13.10 Seizure disorder (HCC) G40.909 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 Small bowel obstruction (HCC) K56.609 Isolation/Infection: Isolation No Isolation Patient Infection Status None to display Nurse Assessment: Last Vital Signs: BP 129/64 Pulse 76 Temp 97 F (36.1 C) (Temporal) Resp 18 Ht 1.778 m (5' 10 ) Wt 89.6 kg (197 lb 8 oz) SpO2 96% BMI 28.34 kg/m Last documented pain score (0-10 scale): Last Weight: Wt Readings from Last 1 Encounters: 04/23/24 89.6 kg (197 lb 8 oz) Mental Status: alert IV Access: - None Nursing Mobility/ADLs: Walking Dependent Transfer Dependent Bathing Dependent Dressing Dependent Toileting Dependent Feeding Assisted Press Loader Assisted Med Delivery whole and prefers mixed with applesauce Wound Care Documentation and Therapy: Elimination: Continence: Bowel: No Bladder: No Urinary Catheter: None Colostomy/Ileostomy/Ileal Conduit: No Date of Last BM: 04/22/2024 Intake/Output Summary (Last 24 hours) at 04/23/2024 1149 Last data filed at 04/23/2024 0825 Gross per 24 hour Intake 840 ml Output -- Net 840 ml I/O last 3 completed shifts: In: 3149.2 [P.O.:960; I.V.:2189.2] Out: 300 [Emesis/NG output:300] Safety Concerns: History of Falls (last 30 days) and At Risk for Falls; Aspiration Risk Impairments/Disabilities: Speech and Vision Nutrition Therapy: Current Nutrition Therapy: - Oral Diet: Dysphagia - Pureed Routes of Feeding: Oral Liquids: [place] Thick Liquids Daily Fluid Restriction: no Last Modified Barium Swallow with Video (Video Swallowing Test): not done Treatments at the Time of Hospital Discharge: Respiratory Treatments: See MAR Oxygen Therapy: is not on home oxygen therapy. Ventilator: - No ventilator support Rehab Therapies: Physical Therapy and Occupational Therapy Weight Bearing Status/Restrictions: No weight bearing restrictions Other Medical Equipment (for information only, NOT a DME order): wheelchair, walker, bedside commode, and hospital bed Other Treatments: None Patient's personal belongings (please select all that are sent with patient): Eye drops, bag of clothes, helmet. RN SIGNATURE: CASE MANAGEMENT/SOCIAL WORK SECTION Inpatient Status Date: 04/19/24 Readmission Risk Assessment Score: [facility] RISK OF UNPLANNED READMISSION 2.0 24.6 Total Score Discharging to Facility/ Agency Name: [facility] home Address:[address] [place] [address] Phone: Fax: Dialysis Facility (if applicable) Name: Address: Dialysis Schedule: Phone: Fax: Environmental Technical Officer/Staff Certified Nurse Midwife signature: PHYSICIAN SECTION Prognosis: Fair Condition at Discharge: Stable Rehab Potential (if transferring to Rehab): Fair Recommended Labs or Other Treatments After Discharge: na Physician Certification: I certify the above information and transfer of Amol Taylor is necessaryfor the continuing treatment of the diagnosis listed and that he requires Intermediate/Mental Retardation/Developmental Disabilities Care for greater 30 days. Update Admission H&P: No change in H&P PHYSICIAN SIGNATURE: * Attachments The following attachments cannot be sent through Care Everywhere. * Viral Infections (Gambian) * Nausea and Vomiting (Gambian) documented in this encounterBon [facility] History of Present illness Narrative* Carson Dior MD - 04/14/2024 11:27 AM ESTAssociated Problem(s): Seizure disorder (CMS/HCC) Follow with neurology. * Carson Dior MD - 04/14/2024 11:27 AM ESTAssociated Problem(s): Moderate intellectual disability (CMS/HCC) Patient does not complain of pain or communicate well. Monitor. * Carson Dior MD - 04/14/2024 11:27 AM ESTAssociated Problem(s): Chronic constipation Normal BM and continue puree diet. * Carson Dior MD - 04/14/2024 11:27 AM ESTAssociated Problem(s): Cerebral palsy (CMS/HCC) No behavior problems and monitor. * Carson Dior MD - 04/14/2024 11:27 AM ESTAssociated Problem(s): BPH without obstruction/lower urinary tract symptoms Symptoms stable and continue medication. * Carson Dior MD - 04/14/2024 10:30 AM EST Images from the original note were not included. Subjective Patient ID: Amol Taylor is a 69 y.o. male who presents for No chief complaint on file.. Follow up seizures, BPH, OA, and constipation. Patient doing well today. Seizures table and about 1-2 times a month. Following with neurology and no recent medication changed. Uses ativan PRN which helps. Taking medication daily. OA stable. No c/o pain in joints. BPH controlled with flomax. Normal stream and not straining to start flow of urine. Not up as much during night. Able to empty all the way and not dribbling. Normal PO and daily BM. Taking puree diet and tolerating well. Daily BM and occasional loose stools. Review of Systems Constitutional: Negative for fatigue. Respiratory: Negative for cough, shortness of breath and wheezing. Cardiovascular: Negative for chest pain and palpitations. Gastrointestinal: Negative for abdominal pain, diarrhea, nausea and vomiting. Genitourinary: Negative for dysuria. Objective Physical Exam Constitutional: General: He is not in acute distress. Appearance: Normal appearance. HENT: Head: Normocephalic. Right Ear: Tympanic membrane and ear canal normal. Left Ear: Tympanic membrane and ear canal normal. Eyes: Extraocular Movements: Extraocular movements intact. Pupils: Pupils are equal, round, and reactive to light. Cardiovascular: Rate and Rhythm: Normal rate and regular rhythm. Heart sounds: No murmur heard. No friction rub. No gallop. Pulmonary: Breath sounds: Normal breath sounds. No wheezing, rhonchi or rales. Abdominal: General: Bowel sounds are normal. There is no distension. Palpations: Abdomen is soft. Tenderness: There is no abdominal tenderness. There is no guarding or rebound. Musculoskeletal: Left lower leg: No edema. Neurological: Mental Status: He is alert. Assessment/Plan Problem List Items Addressed This Visit Chronic constipation Normal BM and continue puree diet. Moderate intellectual disability (CMS/HCC) - Primary Patient does not complain of pain or communicate well. Monitor. Seizure disorder (CMS/HCC) Follow with neurology. Cerebral palsy (CMS/HCC) No behavior problems and monitor. BPH without obstruction/lower urinary tract symptoms Symptoms stable and continue medication. Limitation due to disability documented in this encounterHermann Area District [id number] Telephone encounter Note* Telephone Encounter - DAVE BAUMAN - 03/28/2024 11:55 AM EST [facility] called. State they have been trying to get a refill from dr butler's office for 4 days with no return call, amol is now out of lacosamide, and they are worried he will have seizures over the weekend, if you could call in a short script. clm [facility] [id number] Miscellaneous Notes* Telephone Encounter - DAVE BAUMAN - 03/28/2024 11:55 AM EST [facility] called. State they have been trying to get a refill from dr butler's office for 4 days with no return call, amol is now out of lacosamide, and they are worried he will have seizures over the weekend, if you could call in a short script. clm documented in this encounterHermann Area District [id number] History of Present illness Narrative* Carson Dior MD - 02/19/2024 12:01 PM ESTAssociated Problem(s): Seizure disorder (CMS/HCC) Follow with neurology. * Carson Dior MD - 02/19/2024 12:01 PM ESTAssociated Problem(s): Small bowel obstruction (CMS/HCC) Doing well since hospital and continue medication. Monitor for constipation. * Carson Dior MD - 02/19/2024 11:30 AM EST Images from the original note were not included. Subjective Patient ID: Amol Taylor is a 69 y.o. male who presents for Follow-up (Hospital f/up bowel obstruction). Hospital f/u from 02/01-02/06 for SBO. History of MR and lives in [facility]. Patient developed incontinence then diarrhea and vomiting. Did not c/o pain but rarely c/o pain. To ER and imaging showed SBO. NG placed and admitted. Seen by surgeon who recommended conservative treatment. Symptoms improved. NG clamped and started liquid diet. Tolerated well and advanced to soft diet. Discharged home and remains puree diet. Doing well since home. Normal appetite and no emesis or diarrhea. Daily BM. Nocough or SOB. Seen by GI at [facility] who recommended avoid constipation. On linzess daily. Review of Systems Constitutional: Negative for fatigue. Respiratory: Negative for cough, shortness of breath and wheezing. Cardiovascular: Negative for chest pain and palpitations. Gastrointestinal: Negative for abdominal pain, diarrhea, nausea and vomiting. Genitourinary: Negative for dysuria. Objective Physical Exam Constitutional: General: He is not in acute distress. Appearance: Normal appearance. HENT: Head: Normocephalic. Right Ear: Tympanic membrane and ear canal normal. Left Ear: Tympanic membrane and ear canal normal. Eyes: Extraocular Movements: Extraocular movements intact. Pupils: Pupils are equal, round, and reactive to light. Cardiovascular: Rate and Rhythm: Normal rate and regular rhythm. Heart sounds: No murmur heard. No friction rub. No gallop. Pulmonary: Breath sounds: Normal breath sounds. No wheezing, rhonchi or rales. Abdominal: General: Bowel sounds are normal. There is no distension. Palpations: Abdomen is soft. Tenderness: There is no abdominal tenderness. There is no guarding or rebound. Musculoskeletal: Left lower leg: No edema. Neurological: Mental Status: He is alert. Assessment/Plan Problem List Items Addressed This Visit Moderate intellectual disability (CMS/HCC) Seizure disorder (CMS/HCC) Follow with neurology. Small bowel obstruction (CMS/HCC) - Primary Doing well since hospital and continue medication. Monitor for constipation. Limitation due to disability Need for assistance with personal care documented in this encounterHermann Area District [id number] History of Present illness Narrative* Kathy Llamas RN - 02/07/2024 5:36 PM EST Report given to Victorina at this time * Kathy Llamas RN - 02/07/2024 5:33 PM EST Pt left via LS at this time * Andreas Herrera MSW, KRYSTIN - 02/07/2024 11:27 AM EST Pt discharged to return to [facility] this date. SW called to [facility] and they are unable to provide transportation today and request pt be returned to them by ambulance. LEO faxed request into [facility] for transportation this date. Pt's guardian contacted and notified of return to [facility] this date. Guardian in agreement. Packet provided to nursing and ambulance to pick pt up at 2:30 pm. [facility] notified of cloth picker time. DALE Bolanos, KRYSTIN 02/07/2024 * Gabriella Varghese RN - 02/07/2024 6:45 AM EST Patient assessment initiated, vital signs taken, whiteboard updated, call light within reach, sr upx 2, bed alarm on. * Whitney Freed RN - 02/07/2024 6:02 AM EST Service Coordinator Elderly Facility and Telma from lab attempted twice for lab work and was unsuccessful. Service Coordinator Elderly Facility notified JOSEPH De Oliveira who states she will notify Dr. Cornejo for any further orders. * Roya Iglesias, PT - 02/06/2024 7:19 PM EST [facility] Inpatient/Observation/Outpatient Rehabilitation Date: 02/06/2024 Patient Name: Amol Taylor [x] Inpatient Acute/Observation [] Outpatient : 1955 [] Pt no showed for scheduled appointment [] As a reminder, pt was contacted/attempted contact via phone of upcoming appointments. [] Pt refused/declined therapy at this time due to: [] Pt cancelled due to: [] No Reason Given [] Sick/ill [] Other: [] Evaluation held by RN/Provider due to: [] High Heart Rate [] High Blood Pressure [] Orthopedic Consult [] Hgb < 7 [] Other: [] Pt ordered brace per physician request: [] Proper fit will be completed and education for wearing/skin checks [x] Pt does not require skilled services due to: Pt is dependent for transfers and non-ambulatory. Will require utilization of lift equipment to sit in bedside chair. Therapist/Sound Art Instructor will attempt to see this patient, at our earliest opportunity. Roya Iglesias, PT, DPT Date: 02/06/2024 * Whitney Freed RN - 02/06/2024 6:36 PM EST Patient resting comfortably at this time. Patient denies any pain and denies any other needs at this time. Patient alert & oriented to self and is aware he is in the hospital. Able to answer somequestions appropriately and follow commands. Assessment and vitals as charted. Bed alarm on, bed locked, gripper socks on, call light within reach and able to use appropriately. Will continue to monitor this shift. * Ilana Clayton DO - 02/06/2024 6:28 PM EST GENERAL SURGERY PROGRESS NOTE- inpatient PATIENT NAME: Amol Taylor DATE: 02/07/2024 SUBJECTIVE: Patient has been doing well tolerating diet without ngt, denies pain, very talkative OBJECTIVE: VITALS: BP (!) 139/57 Pulse 83 Temp (!) 96.6 F (35.9 C) (Temporal) Resp 20 Ht 1.778 m (5' 10 ) Wt 89.6 kg (197 lb 8 oz) Comment: with seizure pads on SpO2 97% BMI 28.34 kg/m height is 1.778 m (5' 10 ) and weight is 89.6 kg (197 lb 8 oz). His temporal temperature is 96.6 F (35.9 C) (abnormal). His blood pressure is 139/57 (abnormal) and his pulse is 83. His respiration is20 and oxygen saturation is 97%. INTAKE/OUTPUT: I/O last 3 completed shifts: In: 2687.8 [P.O.:540; I.V.:2147.8] Out: - I/O this shift: In: 120 [P.O.:120] Out: 350 [Urine:350] CONSTITUTIONAL: awake and alert LUNGS: clear to auscultation HEART:regular rate ABDOMEN: normal bowel sounds, soft, non-distended, non-tender EXTREMITIES: no c/c/e Data: CBC: Recent Labs 02/05/24 0530 02/06/24 0526 WBC 10.6 7.5 HGB 11.3* 10.7* HCT 34.5* 32.6* PLT 180 163 BMP: Recent Labs 02/05/24 0530 02/06/24 0526 NA 146* 142 K 3.6* 3.8 CL 111* 110* CO2 24 25 BUN 26* 15 CREATININE 0.7 0.7 GLUCOSE 83 107* Hepatic: No results for input(s): AST , ALT , BILITOT , ALKPHOS in the last 72 hours. Invalid input(s): ALB ASSESSMENT & PLAN: Recurrent partial sbo that has resolved. Diet as tolerated. No plans for surgery. Will sign off/please call as needed. Discussed with Dr. Cornejo and RN. Dr. Clayton * Whitney Freed RN - 02/06/2024 6:[address] Clayton at bedside. States that patient is stable and tolerating discontinuing of the NG tube well and may remain his regular, puree diet. * Carol Harman RN - 02/06/2024 11:35 AM EST Jugular CVC removed at this time per Dr. Cornejo. Patient no longer needs CVC. Dr. Cornejo ok with no IV access at this time. * Carol Harman RN - 02/06/2024 9:25 AM EST NG tube removed at this time. Patient tolerated well. * Katiana Campos RD, LD - 02/06/2024 7:45 AM EST Nutrition Note REGULATORY ADMINISTRATOR and OT report no current availability of a choke proof cup at this time for Pt to use while here. REGULATORY ADMINISTRATOR and OT report cup available is a nosey cup. Will monitor for needs. Diet advanced yesterday to moderately thick, clear liquid diet. Monitor tolerance to oral intakes. Contact: [id number] * Carol Harman RN - 02/06/2024 7:44 AM EST Entered patient's room for morning vital signs and head to toe assessment. Patient resting in the bed at this time. A&O x3, calm, and cooperative. Patient denies of pain at this time. Vital signsand head to toe assessment completed at this time, see flowsheets for more details. NG tube at 68 cm. Soft bilateral wrist restraints present due to patient pulling at jugular CVC and NG tube. Restraints removed, ROM performed, drink and meal given, no irritation or skin breakdown noted, and patient repositioned. Restraints reapplied. Patient denies no more needs at this time. Call light within reach. Bed alarm on. Bed wheels locked. Bed in lowest position. * Carol Harman RN - 02/06/2024 6:[address] Burciaga on the floor at this time and asked about renewing non-violent restraint order. See orders. * Rachel Eli RN - 02/06/2024 4:00 AM EST Restraints removed at this time. Range of motion completed at this time. * Rachel Eli RN - 02/06/2024 2:00 AM EST Restraints removed at this time and range of motion completed * Rachel Eli RN - 02/06/2024 12:00 AM EST Restraints removed at this time and range of motion completed. Pt resting comfortably in bed. * Rachel Eli RN - 02/05/2024 10:00 PM EST Restraints removed at this time. Range of motion completed at this time. * Rachel Eli RN - 02/05/2024 8:00 PM EST Restraints removed and range of motion completed at this time. * Rachel Eli RN - 02/05/2024 7:01 PM EST Service Coordinator Elderly Facility at bedside to complete evening assessment. Upon entry to room, pt awake in bed, respirationsnormal and unlabored while on room air. Vitals obtained and assessment completed, see flow sheet for details. Pt denies needs from real estate underwriter at this time. Call light in reach. Care is ongoing. Patient restraints removed and range of motion performed. Patient requested to scratch and this real estate underwriter told him that he may. Patient attempted to tug on NG tube after itching head and this real estate underwriter asked patient to not do that. Pt stated ok restraints reapplied at this time. * Carol Harman RN - 02/05/2024 6:[address] Burciaga messaged about need for new non-violent restraint order and reevaluation at midnight tonight. * Dorota Woodson APRN - CNP - 02/05/2024 12:59 PM EST Physician Progress Note PATIENT: AMOL TAYLOR CSN #: [id number] : 1955 ADMIT DATE: 02/02/2024 8:58 PM DISCH DATE: RESPONDING PROVIDER #: DOROTA SALTER APRN - PATTERN PAINTER QUERY TEXT: Patient admitted with Bowel obstruction. Pt noted to have BPH and was treated with Flomax.?If possible, please document in progress notes and discharge summary if you are evaluating and/or treating any of the following: The medical record reflects the following: Risk Factors: 69yo Clinical Indicators: H&P states history of BPH Treatment: Flomax Thank you, Toshia BeltreUnm Carrie Tingley HospitalVenkat, CONSTRUCTION CONTROLLER Clinical Sql Server Developer Options provided: -- BPH with partial/complete urinary obstruction -- BPH with urinary retention without obstruction -- Other - I will add my own diagnosis -- Disagree - Not applicable / Not valid -- Disagree - Clinically unable to determine / Unknown -- Refer to Clinical Documentation Reviewer PROVIDER RESPONSE TEXT: This patient has BPH with urinary retention without obstruction. Query created by: Toshia Cook on 02/05/2024 12:21 PM Electronically signed by: DOROTA Espinoza CNP 02/05/2024 12:57 PM * Jami Sawant DO - 02/05/2024 12:45 PM EST General Surgery: Daily Progress Note PATIENT NAME: Amol Taylor TODAY'S DATE: 02/05/2024, 2:25 PM CC: Doing okay SUBJECTIVE: Pt seen and examined at bedside. Small bowel follow-through performed today shows transition of contrast into colon. I's and O's reviewed with patient noted to have multiple bowel movements. OBJECTIVE: VITALS: BP 130/80 Pulse 79 Temp 97.8 F (36.6 C) (Temporal) Resp 22 Ht 1.778 m (5' 10 ) Wt89.1 kg (196 lb 6.4 oz) SpO2 93% BMI 28.18 kg/m INTAKE/OUTPUT: Intake/Output Summary (Last 24 hours) at 02/05/2024 1425 Last data filed at 02/05/2024 0451 Gross per 24 hour Intake 985.81 ml Output 900 ml Net 85.81 ml PHYSICAL EXAM: General Appearance: awake, in no acute distress HEENT: Normocephalic, atraumatic, mucus membranes moist, NGT in place clamped Heart: Regular rate and rhythm Lungs: Equal chest rise bilaterally, no accessory muscle use Abdomen: Soft, nondistended, nontender Extremities: No cyanosis, pitting edema, rashes noted. Skin: Skin color, texture, turgor normal. No rashes or lesions. Data: CBC with Differential: Lab Results Component Value Date/Time WBC 10.6 02/05/2024 05:30 AM RBC 3.43 02/05/2024 05:30 AM RBC 3.43 10/31/2010 11:48 AM HGB 11.3 02/05/2024 05:30 AM HCT 34.5 02/05/2024 05:30 AM PLT 180 02/05/2024 05:30 AM PLT 206 10/31/2010 11:48 AM MCV 100.6 02/05/2024 05:30 AM MCH 32.9 02/05/2024 05:30 AM MCHC 32.8 02/05/2024 05:30 AM RDW 12.2 02/05/2024 05:30 AM LYMPHOPCT 13 02/05/2024 05:30 AM MONOPCT 8 02/05/2024 05:30 AM EOSPCT 1 02/05/2024 05:30 AM BASOPCT 0 02/05/2024 05:30 AM MONOSABS 0.86 02/05/2024 05:30 AM LYMPHSABS 1.39 02/05/2024 05:30 AM EOSABS 0.14 02/05/2024 05:30 AM BASOSABS 0.04 02/05/2024 05:30 AM DIFFTYPE NOT REPORTED 04/13/2021 07:30 AM BMP: Lab Results Component Value Date/Time NA 146 02/05/2024 05:30 AM K 3.6 02/05/2024 05:30 AM CL 111 02/05/2024 05:30 AM CO2 24 02/05/2024 05:30 AM BUN 26 02/05/2024 05:30 AM CREATININE 0.7 02/05/2024 05:30 AM CALCIUM 8.7 02/05/2024 05:30 AM GFRAA >60 09/10/2021 10:31 PM LABGLOM >90 02/05/2024 05:30 AM LABGLOM >90 06/21/2023 05:45 AM GLUCOSE 83 02/05/2024 05:30 AM GLUCOSE 92 10/31/2010 11:48 AM Radiology Review: FL SMALL BOWEL FOLLOW THROUGH ONLY Result Date: 02/05/2024 Findings above demonstrate a slightly delayed transit time to the terminal ileum. Overall, findingscan be seen with ileus or partial small bowel obstruction. XR ABDOMEN FOR NG/OG/NE TUBE PLACEMENT Result Date: 02/04/2024 1. Enteric tube in the stomach. 2. Decompression of the stomach and small bowel since prior study. XR ABDOMEN (2 VIEWS) Result Date: 02/04/2024 Persistent dilated loops of small bowel which could represent ileus or partial small bowel obstruction. These appears slightly more prominent than in the prior study XR CHEST PORTABLE Result Date: 02/03/2024 Right internal jugular central venous catheter tip at the cavoatrial junction. XR ABDOMEN (KUB) (SINGLE AP VIEW) Result Date: 02/03/2024 1. NG tube tip projects over the body of the stomach. 2. Dilated loops of small bowel and colon with gas in the distal colon. This could represent ileus or partial small bowel obstruction. XR CHEST PORTABLE Result Date: 02/03/2024 1. Right internal jugular central venous catheter is present with tip terminating in the right atrium. 2. Left basilar opacities may represent atelectasis or pneumonia. XR CHEST PORTABLE Result Date: 02/03/2024 Interval placement of a right IJ approach central venous catheter with tip in the mid right atrium.No pneumothorax. XR ABDOMEN FOR NG/OG/NE TUBE PLACEMENT Result Date: 02/03/2024 The tip and side port of the enteric tube are in the gastric lumen. CT ABDOMEN PELVIS WO CONTRAST Additional Contrast? None Result Date: 02/02/2024 1. No acute abnormality in the abdomen or pelvis. 2. Gastric distension of uncertain clinical significance. Gastroparesis is not excluded. ASSESSMENT: Active Hospital Problems Diagnosis Date Noted Bowel obstruction (HCC) [K56.609] 02/03/2024 Seizure disorder (HCC) [G40.909] 02/12/2023 S/P placement of VNS (vagus nerve stimulation) device [Z96.89] 02/11/2023 Dysphagia [R13.10] 02/11/2023 AFTAB (obstructive sleep apnea) [G47.33] 10/11/2016 MR (mental retardation), severe [F72] 10/20/2013 69 y.o. male with ileus versus partial small bowel obstruction Plan: Okay to remove NG tube Advance diet as tolerated Small bowel follow-through reviewed Patient is having bowel function * Ever Campos - 02/05/2024 10:42 AM EST Spiritual Health History and Assessment/Progress Note [facility] (P) Initial Encounter, , , Name: Amol Taylor Age: 69 y.o. Sex: male Language: Gambian Bahai: Non-Temple Bowel obstruction (HCC) Date: 02/05/2024 Total Time Calculated: (P) 5 min Spiritual Assessment began in [facility] MED SURG Referral/Consult From: (P) Rounding Encounter Overview/Reason: (P) Initial Encounter Service Provided For: (P) Patient Aletha, Belief, Meaning: Patient unable to assess at this time Family/Friends Other: Patient was not able to verbally communicate with the farm mechanic due to his breathing tools. He was sleepy. Importance and Influence: Patient unable to assess at this time Family/Friends No family/friends present Community: Patient Other: Patient was not able to communicate with the farm mechanic. Family/Friends No family/friends present Assessment and Plan of Care: Patient Interventions include: Facilitated expression of thoughts and feelings Family/Friends Interventions include: No family was present at the time. Patient Plan of Care: Spiritual Care available upon further referral Family/Friends Plan of Care: No spiritual needs identified for follow-up * Carol Harman RN - 02/05/2024 8:19 AM EST Patient given contrast for small bowel follow through at this time via NG tube. * Dorota Woodson APRN - CNP - 02/05/2024 8:00 AM EST Progress Note SUBJECTIVE: Patient seen for f/u of Bowel obstruction (HCC). He resting in bed with NG to LIWS. Has audible mucus today. Soft restraints in place to assist with prevention of pulling of NG and Central Line. ROS: Constitutional: negative for fevers, and negative [...] otherwise stated in HPI OBJECTIVE: Vitals: Vitals: 02/05/24 0657 BP: 130/80 Pulse: 79 Resp: 22 Temp: 97.8 F (36.6 C) SpO2: 93% Weight - Scale: 89.1 kg (196 lb 6.4 oz) Height: 177.8 cm (5' 10 ) Weight Wt Readings from Last 3 Encounters: 02/05/24 89.1 kg (196 lb 6.4 oz) 07/24/23 79.4 kg (175 lb) 06/20/23 72.2 kg (159 lb 3.2 oz) Body mass index is 28.18 kg/m . 24HR INTAKE/OUTPUT: Intake/Output Summary (Last 24 hours) at 02/05/2024 0801 Last data filed at 02/05/2024 0451 Gross per 24 hour Intake 985.81 ml Output 900 ml Net 85.81 ml Exam: GEN: Awake, alert and no distress. EYES: EOMI, pupils equal NECK: Supple. No lymphadenopathy. No carotid bruit CVS: regular rate and rhythm, no audible murmur PULM: CTA, no wheezes, rales or rhonchi, no acute respiratory distress ABD: Bowels sounds hypoactive. Abdomen is soft. No distention. no tenderness to upper palpation. EXT: no edema bilaterally . No calf tenderness. NEURO: Moves all extremities. Motor and sensory are grossly intact SKIN: No rashes. No skin lesions. Diagnostic Data: Complete Blood Count: Recent Labs 02/03/24 0535 02/04/24 0550 02/05/24 0530 WBC 10.7 15.6* 10.6 RBC 3.90* 3.81* 3.43* HGB 12.9* 12.7* 11.3* HCT 39.0* 37.8* 34.5* MCV 100.0 99.2 100.6 MCH 33.1 33.3 32.9 MCHC 33.1 33.6 32.8 RDW 12.4 12.3 12.2 PLT 225 222 180 MPV 8.7 8.7 8.8 Last 3 Blood Glucose: Recent Labs 02/02/24211902/03/24 0535 02/04/24 0550 02/05/24 0530 GLUCOSE 99 93 92 83 Comprehensive Metabolic Profile: Recent Labs 02/02/24211902/03/2435 02/04/24 0550 02/05/24 0530 NA 142 144 145 146* K 4.1 3.8 3.7 3.6* CL 107 108* 108* 111* CO2 25 26 26 24 BUN 26* 23 23 26* CREATININE 1.0 0.9 0.8 0.7 GLUCOSE 99 93 92 83 CALCIUM 8.9 9.5 8.9 8.7 BILITOT <0.2 -- -- -- ALKPHOS 165* -- -- -- AST 18 -- -- -- ALT 17 -- -- -- Urinalysis: Lab Results Component Value Date/Time NITRU NEGATIVE 06/11/2023 03:28 PM COLORU Yellow 06/11/2023 03:28 PM PHUR 6.0 06/11/2023 03:28 PM WBCUA 0 TO 2 06/11/2023 03:28 PM RBCUA None 06/11/2023 03:28 PM MUCUS TRACE 06/11/2023 03:28 PM TRICHOMONAS NOT REPORTED 12/05/2018 06:15 AM YEAST NOT REPORTED 12/05/2018 06:15 AM BACTERIA TRACE 06/11/2023 03:28 PM LEUKOCYTESUR NEGATIVE 06/11/2023 03:28 PM UROBILINOGEN Normal 06/11/2023 03:28 PM BILIRUBINUR NEGATIVE 06/11/2023 03:28 PM BILIRUBINUR NEGATIVE 10/31/2010 12:33 PM GLUCOSEU NEGATIVE 06/11/2023 03:28 PM GLUCOSEU NEGATIVE 10/31/2010 12:33 PM KETUA NEGATIVE 06/11/2023 03:28 PM AMORPHOUS 2+ 06/12/2022 11:10 AM HgBA1c: No results found for: LABA1C Lactic Acid: Lab Results Component Value Date/Time LACTA 0.6 06/12/2023 05:10 AM LACTA 1.3 09/02/2022 07:35 PM LACTA 1.3 06/21/2022 12:30 PM Troponin: No results for input(s): TROPONINI in the last 72 hours. CRP: No results for input(s): CRP in the last 72 hours. Radiology/Imaging: XR ABDOMEN FOR NG/OG/NE TUBE PLACEMENT Final Result 1. Enteric tube in the stomach. 2. Decompression of the stomach and small bowel since prior study. XR ABDOMEN (2 VIEWS) Final Result Persistent dilated loops of small bowel which could represent ileus or partial small bowel obstruction. These appears slightly more prominent than in the prior study XR CHEST PORTABLE Final Result Right internal jugular central venous catheter tip at the cavoatrial junction. XR ABDOMEN (KUB) (SINGLE AP VIEW) Final Result 1. NG tube tip projects over the body of the stomach. 2. Dilated loops of small bowel and colon with gas in the distal colon. This could represent ileus or partial small bowel obstruction. XR CHEST PORTABLE Final Result 1. Right internal jugular central venous catheter is present with tip terminating in the right atrium. 2. Left basilar opacities may represent atelectasis or pneumonia. XR CHEST PORTABLE Final Result Interval placement of a right IJ approach central venous catheter with tip in the mid right atrium. No pneumothorax. XR ABDOMEN FOR NG/OG/NE TUBE PLACEMENT Final Result The tip and side port of the enteric tube are in the gastric lumen. CT ABDOMEN PELVIS WO CONTRAST Additional Contrast? None Final Result 1. No acute abnormality in the abdomen or pelvis. 2. Gastric distension of uncertain clinical significance. Gastroparesis is not excluded. FL SMALL BOWEL FOLLOW THROUGH ONLY (Results Pending) ASSESSMENT / PLAN: MEDICAL DECISION MAKING: Primary Problem(s): Bowel obstruction (HCC) Differential diagnoses: SBO vs ileus Condition is an acute or chronic illness or injury that poses threat to life or bodily function Treatment plan: General Surgery consult appreciated: Discussed with Dr. 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 Condition is a chronic stable condition Treatment plan: Fall precautions Soft restraints if necessary to protect NGT History of vagal nerve stimulator due to seizure disorder Medications: Start IV Keppra 1.5 gm BID Start IV Vimpat 150 mg bid PRN Ativan for seizure activity Hold Lamictal AFTAB Condition is a chronic stable condition Treatment plan: Unsure if pt uses CPAP at night Disposition: Shared decision making: All test results, treatment options and disposition options were discussed with the patient today Social determinants of health that may impact management: MRDD Code status: Full Code Disposition: Discharge plan is pending [facility] Advanced Care Planning documentation: [x] I have [...] the patient's medical record. [DOES NOT SATISFY [facility] PERFORMANCE] Dorota Woodson APRN - OTONIEL , PROGRAM DIR, PRODUCTION WOOD [employer]RAFTSMAN-C Hospitalist Medicine 02/05/2024, 8:01 AM Associated attestation - Yana Cornejo MD - 02/05/2024 12:35 PM EST Yana Cornejo M.D. Internal Medicine PA/PRODUCTION WO[employer]RAFTSMAN Attestation Note Patient: Amol Taylor Date of Admission: 02/02/2024 8:58 PM Date of Evaluation: 02/05/2024 I personally evaluated and examined the patient [id number] in conjunction with the PA/PRODUCTION WOOD CRAFTSMAN and agree with the management and dispostition of the patient. Please see the PA/PRODUCTION WOOD CRAFTSMAN's note for full details.My gee findings are: SUBJECTIVE: Amol Taylor is a 69 y.o. male who was seen today along with Dorota Salter CNP for follow up of Bowel obstruction (HCC). He states he's feeling OK . He denies abdominal pain. He denies fever or chills and has been afebrile. He had soft restraints placed due to pulling at his NGT OBJECTIVE: Vitals: Temp: 97.8 F (36.6 C) BP: 130/80 Respirations: 22 Pulse: 79 SpO2: 93 % Weight Wt Readings from Last 3 Encounters: 02/05/24 89.1 kg (196 lb 6.4 oz) 07/24/23 79.4 kg (175 lb) 06/20/23 72.2 kg (159 lb 3.2 oz) Body mass index is 28.18 kg/m . 24HR INTAKE/OUTPUT: Intake/Output Summary (Last 24 hours) at 02/05/2024 1227 Last data filed at 02/05/2024 0451 Gross per 24 hour Intake 985.81 ml Output 900 ml Net 85.81 ml Exam: GEN: Pleasantly confused and disoriented. EYES: EOMI, pupils equal NECK: Supple. No [...] lesions. DATA: Complete Blood Count: Recent Labs 02/03/24 0535 02/04/24 0550 02/05/24 0530 WBC 10.7 15.6* 10.6 RBC 3.90* 3.81* 3.43* HGB 12.9* 12.7* 11.3* HCT 39.0* 37.8* 34.5* MCV 100.0 99.2 100.6 RDW 12.4 12.3 12.2 PLT 225 222 180 Recent Labs 02/03/24 0535 02/04/24 0550 02/05/24 0530 NEUTROABS 7.37 12.13* 8.10 LYMPHOPCT 20* 14* 13* LYMPHSABS 2.18 2.14 1.39 MONOPCT 7 7 8 BASOPCT 1 0 0 IMMGRAN 0 0 1* CMP: Recent Labs 02/02/24211902/03/24 0535 02/04/24 0550 02/05/24 0530 NA 142 144 145 146* K 4.1 3.8 3.7 3.6* CL 107 108* 108* 111* CO2 25 26 26 24 BUN 26* 23 23 26* CREATININE 1.0 0.9 0.8 0.7 GLUCOSE 99 93 92 83 CALCIUM 8.9 9.5 8.9 8.7 BILITOT <0.2 -- -- -- ALKPHOS 165* -- -- -- AST 18 -- -- -- ALT 17 -- -- -- UA: Lab Results Component Value Date COLORU Yellow 06/11/2023 WBCUA 0 TO 2 06/11/2023 RBCUA None 06/11/2023 LEUKOCYTESUR NEGATIVE 06/11/2023 GLUCOSEU NEGATIVE 06/11/2023 KETUA NEGATIVE 06/11/2023 PROTEINU NEGATIVE 06/11/2023 HGBUR NEGATIVE 06/11/2023 CASTUA NOT REPORTED 12/05/2018 BACTERIA TRACE (A) 06/11/2023 YEAST NOT REPORTED 12/05/2018 Lactic Acid: No results for input(s): LACTA , LACTSEPSIS in the last 72 hours. High Sensitivity Troponin: No results for input(s): TROPHS in the last 72 hours. Microbiology / Cultures: Results No results found for the last 336 hours. Imaging Data: XR ABDOMEN (2 VIEWS) Result Date: 02/04/2024 EXAMINATION: TWO XRAY VIEWS OF THE ABDOMEN 02/04/2024 7:37 am COMPARISON: February 03, 2024 x-ray abdomen HISTORY: ORDERING SYSTEM PROVIDED HISTORY: recurrent partial sbo progress study TECHNOLOGIST PROVIDED HISTORY: recurrent partial sbo progress study FINDINGS: Enteric tube with tip and side-port in the stomach. Dilated loops of small bowel in the left abdomen measuring up to 4.7 cm appear more prominent than in the prior study. There remains gas within the colon as well. Persistent dilated loops of small bowel which could represent ileus or partial small bowel obstruction. These appears slightly more prominent than in the prior study XR CHEST PORTABLE Result Date: 02/03/2024 EXAMINATION: ONE XRAY VIEW OF THE CHEST 02/03/2024 6:15 pm COMPARISON: Chest x- ray 02/03/2024 1:11 p.m. HISTORY: ORDERING SYSTEM PROVIDED HISTORY: central line placement TECHNOLOGIST PROVIDED HISTORY:central line placement FINDINGS: Right internal jugular central venous catheter tip at the cavoatrial junction. Mild left basilar atelectasis is unchanged. Costophrenic angles are clear. NG tube tip projects over the body of the stomach. The bones are intact. Right internal jugular central venous catheter tip at the cavoatrial junction. XR ABDOMEN (KUB) (SINGLE AP VIEW) Result Date: 02/03/2024 EXAMINATION: ONE SUPINE XRAY VIEW(S) OF THE ABDOMEN 02/03/2024 1:42 pm COMPARISON: Abdomen 07/24/[address] scan of the abdomen and pelvis 02/02/2024 HISTORY: ORDERING SYSTEM PROVIDED HISTORY: progress study/recurrent sbo/ok to do at bedside TECHNOLOGIST PROVIDED HISTORY: progress study/recurrent sbo/ok to do at bedside FINDINGS: NG tube tip projects over the body of the stomach with the side hole projecting over the body of the stomach. There is some dilated loops of small bowel as well as gaseous distension loops of colon with gas in the distal colon. 1. NG tube tip projects over the body of the stomach. 2. Dilated loops of small bowel and colon with gas in the distal colon. This could represent ileus or partial small bowel obstruction. XR CHEST PORTABLE Result Date: 02/03/2024 EXAMINATION: ONE XRAY VIEW OF THE CHEST 02/03/2024 1:15 pm COMPARISON: Chest radiograph 02/03/2024 HISTORY: ORDERING SYSTEM PROVIDED HISTORY: verify central venous catheter tip placement. (If still mid right atrium how far to pull back?) TECHNOLOGIST PROVIDED HISTORY: verify central venous catheter tip placement. (If still mid right atrium how far to pull back?) FINDINGS: Lines and Tubes: Right internal jugular central venous catheter is present with tip terminating in the right atrium. An enteric tube is present with tip and side port overlying the left upper quadrant. Stimulator noted about the left chest wall with leads terminating within the left lateral neck. Lungs: Left basilar opacities. Pleura: No effusion or pneumothorax. Cardiomediastinal silhouette: Normal contours. Bones: Old healed fracture of the distal left clavicle. Bilateral acromioclavicular and glenohumeral joint arthrosis Soft tissues: Normal. 1. Right internal jugular central venous catheter is present with tip terminating in the right atrium. 2. Left basilar opacities may represent atelectasis or pneumonia. XR CHEST PORTABLE Result Date: 02/03/2024 EXAMINATION: ONE XRAY VIEW OF THE CHEST 02/03/2024 3:04 am COMPARISON: 06/11/2023 HISTORY: ORDERING SYSTEM PROVIDED HISTORY: R IJ CVC placed TECHNOLOGIST PROVIDED HISTORY: R IJ CVC placed FINDINGS: Interval placement of a right IJ approach central venous catheter with the tip seen in the mid right atrium. No pneumothorax is identified. Low lung volumes, with perihilar atelectasis. No consolidation. No pleural effusion. No acute osseous abnormality is identified. Left-sided chest wall stimulator device with leads at the left neck. Degenerative change in the shoulders bilaterally. Interval placement of a right IJ approach central venous catheter with tip in the mid right atrium.No pneumothorax. XR ABDOMEN FOR NG/OG/NE TUBE PLACEMENT Result Date: 02/03/2024 EXAMINATION: ONE SUPINE XRAY VIEW(S) OF THE ABDOMEN 02/03/2024 1:49 am COMPARISON: CT abdomen and pelvis 02/02/2024. HISTORY: ORDERING SYSTEM PROVIDED HISTORY: Confirmation of course of NG/OG/NE tube and location of tip of tube TECHNOLOGIST PROVIDED HISTORY: Confirmation of course of NG/OG/NE tube and location of tip of tube Portable?->Yes FINDINGS: The tip and side port of the enteric tube arein the gastric lumen. No evidence of pneumoperitoneum. No acute osseous abnormality. The tip and side port of the enteric tube are in the gastric lumen. CT ABDOMEN PELVIS WO CONTRAST Additional Contrast? None Result Date: 02/02/2024 EXAMINATION: CT OF THE ABDOMEN AND PELVIS WITHOUT CONTRAST 02/02/2024 10:13 pm TECHNIQUE: CT of theabdomen and pelvis was performed without the administration of intravenous contrast. Multiplanar reformatted images are provided for review. Automated exposure control, iterative reconstruction, and/or weight based adjustment of the mA/kV was utilized to reduce the radiation dose to as low as reasonably achievable. COMPARISON: CT abdomen and pelvis 07/21/2023. HISTORY: ORDERING SYSTEM PROVIDED HISTORY: Vomiting; hx of SBO TECHNOLOGIST PROVIDED HISTORY: Vomiting; hx of SBO Decision Support Exception - unselect if not a suspected or confirmed emergency medical condition->Emergency Medical Condition (MA) FINDINGS: Lower Chest: Mild cardiomegaly. Coronary artery atherosclerotic vascular calcifications. Mild bibasilar atelectasis. Chronic unchanged elevation of the left hemidiaphragm. Organs: Lack of intravenous contrast limits evaluation of the solid organs, vascular structures, and bowel. The liver and gallbladder are unremarkable. No biliary ductal dilatation is identified. The pancreas, spleen, and bilateral adrenal glands are unremarkable. The right kidney is unremarkable. Chronic left Igna renal subcapsular fluid collection with peripheral calcifications unchanged from the previous exam. No further evaluation recommended. No obstructive uropathy or urinary collecting system c alculi. GI/Bowel: No evidence of acute appendicitis. The colon is unremarkable. Small bowel anastomotic sutures in the left lower quadrant with focal unchanged dilatation likely postoperative in etiology. The stomach is distended with gas and fluid. No wall thickening or convincing evidence of obstruction. Pelvis: The urinary bladder is normal in appearance. No prostatomegaly. No free fluid in the pelvis. No pelvic or inguinal lymphadenopathy. Peritoneum/Retroperitoneum: The abdominal aorta is normal in caliber with moderate calcific plaquing. No retroperitoneal or mesenteric lymphadenopathy is identified. No free air or fluid is seen in the abdomen. Bones/Soft Tissues: No acute osseous or soft tissue abnormality. 1. No acute abnormality in the abdomen or pelvis. 2. Gastric distension of uncertain clinical significance. Gastroparesis is not excluded. ASSESSMENT: Principal Problem: Bowel obstruction (HCC) Active Problems: MR (mental retardation), severe Seizure disorder ([facility]) S/P placement of VNS (vagus nerve stimulation) device AFTAB (obstructive sleep apnea) Dysphagia Resolved Problems: Epilepsy (HCC) PLAN: I agree with the assessment, plan and medical decision making documentation as outlined by APC: Treatment plan: Gen Surg consult appreciated: discussed with Dr. Clayton Continue NGT to LIWS NPO Soft wrist restraints utilized to protect NGT from being pulled out SBFT ordered Disposition: Discharge plan is pending [facility] VISIT, PHYSICIAN ATTESTATION: [id number] I personally performed a substantive part of the MDM during the patient's visit. I personally evaluated and examined the patient. I personally made or approved the documented management plan and acknowledge its risk of complications. Test interpretation: My independent EKG interpretation: Normal sinus rhythm with normal axis and intervals, no ST segment changes Management and/or test interpretation discussed with OTONIEL Zuñiga MD , MPatricia. 02/05/2024 12:27 PM * Carol Harman RN - 02/05/2024 6:57 AM EST Entered patient's room for morning vital signs and head to toe assessment. Patient resting in the bed at this time. A&O x3, calm, and cooperative. Patient denies of pain at this time. Vital signsand head to toe assessment completed at this time, see flowsheets for more details. Bilateral soft wrist restraints in place at this time. NG tube at 68 cm and tube retaped for comfort at this time. Patient denies no more needs at this time. Call light within reach. Bed alarm on. Bed wheels locked.Bed in lowest position. Seizure pads in place. Side rails up x3. * Alesha Galicia RN - 02/04/2024 7:04 PM EST Assessment and vitals obtained at this time as charted. Pt is oriented to person, place and time and disoriented to situation. Pt is currently in soft restraints d/t pulling out his NG tube several times. Pt denies any further needs at this time. Call light within reach, care ongoing. * Kathy Llamas RN - 02/04/2024 2:38 PM EST New NG tube placed at this time. 65cm at the nare * Kathy Llamas RN - 02/04/2024 2:30 PM EST Soft non-violent restraints applied at this time due to patient repeatedly pulling out his NG tube.Patient's CVC dressing changed due to patient picking and pulling at dressing. Service Coordinator [facility] called to update POA but no answer, message was left to call back. * Kathy Llamas RN - 02/04/2024 2:15 PM EST Service Coordinator [facility] entered patient's room and patient was holding his NG tube in his hands. Service Coordinator [facility] notified JOSEPH Suarez. New orders placed at this time. * Elvira Nelson LSW - 02/04/2024 1:57 PM EST Spoke with Patient sister and legal guardian, Susan and with [facility] nurse, alicia Coronel: discharge planning for Patient. Patient is a 69 year old single, white male, admitted with a diagnosis of Bowel Obstruction. Secondary diagnosis' of Mental Retardation and Seizures noted. Is alert, watches TV. Hearing loss also noted. Plan for Patient will be to return to the [facility] following this hospitalization. Patient resides in one of three group homes near [place] and managed by [facility]. He lives with seven other residents. Nurse relates that he does his daily exercises but reports that he has gone to outpatient therapy at [facility] in [place] for deconditioning following previous hospitalizations. May need this again if he is here long. Guardian also open to therapy if needed. Patient uses a wheelchair for assistance with ambulation. He is dependent for care and requires assistance daily. Guardian accompanies to his medical appointments and [facility] provides for his transportation needs. PCP is Dr. Dior. Patient has managed medicare and medicaid insurance coverage. No further assistance needed for his prescription medications. Discharge plan is to return to the [facility] when stable. Patient remains a 'Full Code' status anddoes have Legal Guardianship documentation on file. OPEN PIT QUARRY SUPERVISOR following. [facility] to provide transportation home if discharged early in the day. KRYSTIN Torres 02/04/2024 * Katiana Campos, RD, LD - 02/04/2024 9:33 AM EST Comprehensive Nutrition Assessment Type and Reason for Visit: Initial Nutrition Recommendations/Plan: Continue NPO diet. Progress to puree with honey thickened liquids diet as medically appropriate. Recommend to recheck vitamin D level and supplement as indicated. Message with OT about choke proof cup for Pt while hospitalized. Malnutrition Assessment: Malnutrition Status: At risk for malnutrition (02/04/24 0933) Context: Acute Illness Findings of the 6 clinical characteristics of malnutrition: Energy Intake: Mild decrease in energy intake (3 days, vomiting) Weight Loss: No weight loss Body Fat Loss: No body fat loss Muscle Mass Loss: No muscle mass loss Fluid Accumulation: Mild Extremities (non pitting edema BLE. Active beverley sounds) Zoning Engineer Strength: Not Performed Nutrition Assessment: Inadequate oral intakes r/t altered GI function aeb NPO, vomiting x 3 days, diarrhea x 1 week, Dx bowel obstruction. Weight gain of 30# x 7 months. Pt sister reports Amol was on a puree with thickened liquids diet due to aspiration, states he does not like it, but safer for him to eat. Good PO estela gamez. Spoke with nurse at [facility] to clarify consistency of thickened liquids. Nurse reports honey thick liquids, feeds himself. Reports Amol has failed MBS and swallow studies, sister does not want to take food away from him, she does not want a tube feeding for him. He uses a choke proof cupat [facility]. Left voice mail message for OT to see if we can get a cup for Pt while he is here. Nutrition Related Findings: active bowel sounds, BLE non pitting edema. Wound Type: None Current Nutrition Intake & Therapies: Average Meal Intake: NPO Average Supplements Intake: NPO Diet NPO Anthropometric Measures: Height: 177.8 cm (5' 10 ) [place] Body Weight (IBW): 166 lbs (75 kg) Admission Body Weight: 88.8 kg (195 lb 11 oz) Current Body Weight: 88.9 kg (195 lb 15.8 oz), 118.1 % IBW. Weight Source: Bed scale Current BMI (kg/m2): 28.1 Usual Body Weight: 74.8 kg (165 lb) (06/11/22) % Weight Change (Calculated): 18.8 Weight Adjustment For: No Adjustment BMI Categories: Overweight (BMI 25.0-29.9) Estimated Daily Nutrient Needs: Energy Requirements Based On: Kcal/kg Weight Used for Energy Requirements: Current Energy (kcal/day): 0539-0190 (20-23/kg) Weight Used for Protein Requirements: [place] Protein (g/day): 90-105g (1.2-1.4g/kg) Fluid (ml/day): Hematology: Recent Labs 02/02/24211902/03/24 0535 02/04/24 0550 WBC 11.0 10.7 15.6* HGB 12.6* 12.9* 12.7* HCT 38.4* 39.0* 37.8* Chemistry: Recent Labs 02/02/24211902/03/24 0535 02/04/24 0550 NA 142 144 145 K 4.1 3.8 3.7 CL 107 108* 108* CO2 25 26 26 GLUCOSE 99 93 92 BUN 26* 23 23 CREATININE 1.0 0.9 0.8 CALCIUM 8.9 9.5 8.9 Recent Labs 02/02/242119 AST 18 ALT 17 ALKPHOS 165* BILITOT <0.2 LIPASE 94* Lab Results Component Value Date VITD25 28.6 (L) 10/31/2018 Nutrition Diagnosis: Inadequate oral intake related to altered GI function as evidenced by NPO or clear liquid status due to medical condition, vomiting, diarrhea Nutrition Interventions: Food and/or Nutrient Delivery: Continue NPO Nutrition Education/Counseling: No recommendation at this time Coordination of Nutrition Care: Continue to monitor while inpatient Plan of Care discussed with: Pt sister Goals: Goals: Initiate PO diet Type of Goal: New goal Previous Goal Met: New Goal Nutrition Monitoring and Evaluation: Behavioral-Environmental Outcomes: Knowledge or Skill Food/Nutrient Intake Outcomes: Diet Advancement/Tolerance Physical Signs/Symptoms Outcomes: Chewing or Swallowing, GI Status, Weight Discharge Planning: Too soon to determine KATIANA CAMPOS RD, LD Contact: [phone] * Dorota Woodson APRN - OTONIEL - 02/04/2024 8:03 AM EST Progress Note SUBJECTIVE: Patient seen for f/u of Bowel obstruction (HCC). He resting in bed with NG to LIWS. Clear drainage. ROS: Constitutional: negative for fevers, and negative for chills. Respiratory: negative for shortness of breath, negative for cough, and negative for wheezing Cardiovascular: negative for chest pain, and negative for palpitations Gastrointestinal: positive for abdominal pain, negative for nausea,negative for vomiting, negative for diarrhea, and negative for constipation All other systems were reviewed with the patient and are negative unless otherwise stated in HPI OBJECTIVE: Vitals: Vitals: 02/04/24 0615 BP: 136/78 Pulse: 84 Resp: 22 Temp: 97.3 F (36.3 C) SpO2: 95% Weight - Scale: 88.9 kg (196 lb) Weight Wt Readings from Last 3 Encounters: 02/04/24 88.9 kg (196 lb) 07/24/23 79.4 kg (175 lb) 06/20/23 72.2 kg (159 lb 3.2 oz) Body mass index is 28.12 kg/m . 24HR INTAKE/OUTPUT: Intake/Output Summary (Last 24 hours) at 02/04/2024 0803 Last data filed at 02/04/2024 0557 Gross per 24 hour Intake 828 ml Output 1650 ml Net -822 ml Exam: GEN: Awake, alert and no distress. EYES: EOMI, pupils equal NECK: Supple. No lymphadenopathy. No carotid bruit CVS: regular rate and rhythm, no audible murmur PULM: CTA, no wheezes, rales or rhonchi, no acute respiratory distress ABD: Bowels sounds hypoactive. Abdomen is soft. No distention. slight tenderness to upper palpation. EXT: no edema bilaterally . No calf tenderness. NEURO: Moves all extremities. Motor and sensory are grossly intact SKIN: No rashes. No skin lesions. Diagnostic Data: Complete Blood Count: Recent Labs 02/02/24211902/03/24 0535 02/04/24 0550 WBC 11.0 10.7 15.6* RBC 3.80* 3.90* 3.81* HGB 12.6* 12.9* 12.7* HCT 38.4* 39.0* 37.8* MCV 101.1 100.0 99.2 MCH 33.2 33.1 33.3 MCHC 32.8 33.1 33.6 RDW 12.4 12.4 12.3 PLT 245 225 222 MPV 9.2 8.7 8.7 Last 3 Blood Glucose: Recent Labs 02/02/24211902/03/24 0535 02/04/24 0550 GLUCOSE 99 93 92 Comprehensive Metabolic Profile: Recent Labs 02/02/24211902/03/24 0535 02/04/24 0550 NA 142 144 145 K 4.1 3.8 3.7 CL 107 108* 108* CO2 25 26 26 BUN 26* 23 23 CREATININE 1.0 0.9 0.8 GLUCOSE 99 93 92 CALCIUM 8.9 9.5 8.9 BILITOT <0.2 -- -- ALKPHOS 165* -- -- AST 18 -- -- ALT 17 -- -- Urinalysis: Lab Results Component Value Date/Time NITRU NEGATIVE 06/11/2023 03:28 PM COLORU Yellow 06/11/2023 03:28 PM PHUR 6.0 06/11/2023 03:28 PM WBCUA 0 TO 2 06/11/2023 03:28 PM RBCUA None 06/11/2023 03:28 PM MUCUS TRACE 06/11/2023 03:28 PM TRICHOMONAS NOT REPORTED 12/05/2018 06:15 AM YEAST NOT REPORTED 12/05/2018 06:15 AM BACTERIA TRACE 06/11/2023 03:28 PM LEUKOCYTESUR NEGATIVE 06/11/2023 03:28 PM UROBILINOGEN Normal 06/11/2023 03:28 PM BILIRUBINUR NEGATIVE 06/11/2023 03:28 PM BILIRUBINUR NEGATIVE 10/31/2010 12:33 PM GLUCOSEU NEGATIVE 06/11/2023 03:28 PM GLUCOSEU NEGATIVE 10/31/2010 12:33 PM KETUA NEGATIVE 06/11/2023 03:28 PM AMORPHOUS 2+ 06/12/2022 11:10 AM HgBA1c: No results found for: LABA1C Lactic Acid: Lab Results Component Value Date/Time LACTA 0.6 06/12/2023 05:10 AM LACTA 1.3 09/02/2022 07:35 PM LACTA 1.3 06/21/2022 12:30 PM Troponin: No results for input(s): TROPONINI in the last 72 hours. CRP: No results for input(s): CRP in the last 72 hours. Radiology/Imaging: XR CHEST PORTABLE Final Result Right internal jugular central venous catheter tip at the cavoatrial junction. XR ABDOMEN (KUB) (SINGLE AP VIEW) Final Result 1. NG tube tip projects over the body of the stomach. 2. Dilated loops of small bowel and colon with gas in the distal colon. This could represent ileus or partial small bowel obstruction. XR CHEST PORTABLE Final Result 1. Right internal jugular central venous catheter is present with tip terminating in the right atrium. 2. Left basilar opacities may represent atelectasis or pneumonia. XR CHEST PORTABLE Final Result Interval placement of a right IJ approach central venous catheter with tip in the mid right atrium. No pneumothorax. XR ABDOMEN FOR NG/OG/NE TUBE PLACEMENT Final Result The tip and side port of the enteric tube are in the gastric lumen. CT ABDOMEN PELVIS WO CONTRAST Additional Contrast? None Final Result 1. No acute abnormality in the abdomen or pelvis. 2. Gastric distension of uncertain clinical significance. Gastroparesis is not excluded. XR ABDOMEN (2 VIEWS) (Results Pending) ASSESSMENT / PLAN: MEDICAL DECISION MAKING: Primary Problem(s): Bowel obstruction (HCC) Differential diagnoses: SBO vs ileus Condition is an acute or chronic illness or injury that poses threat to life or bodily function Treatment plan: General Surgery consult appreciated: Discussed with Dr. 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 Condition is a chronic stable condition Treatment plan: Fall precautions Soft restraints if necessary to protect NGT History of vagal nerve stimulator due to seizure disorder Medications: Start IV Keppra 1.5 gm BID Start IV Vimpat 150 mg bid PRN Ativan for seizure activity Hold Lamictal AFTAB Condition is a chronic stable condition Treatment plan: Unsure if pt uses CPAP at night Disposition: Shared decision making: All test results, treatment options and disposition options were discussed with the patient today Social determinants of health that may impact management: MRDD Code status: Full Code Disposition: Discharge plan is pending [facility] Advanced Care Planning documentation: [x] I have [...] the patient's medical record. [DOES NOT SATISFY [facility] PERFORMANCE] Dorota Woodson APRN - OTONIEL , PROGRAM DIR, PRODUCTION WOOD CRAFTSMAN-C Hospitalist Medicine 02/04/2024, 8:03 AM Associated attestation - Yana Cornejo MD - 02/04/2024 5:41 PM EST Yana Cornejo M.D. Internal Medicine PA/PRODUCTION WOOD CRAFTSMAN Attestation Note Patient: Amol Taylor Date of Admission: 02/02/2024 8:58 PM Date of Evaluation: 02/04/2024 I personally evaluated and examined the patient [id number] in conjunction with the PA/PRODUCTION WOOD CRAFTSMAN and agree with the management and dispostition of the patient. Please see the PA/PRODUCTION WOOD CRAFTSMAN's note for full details.My gee findings are: SUBJECTIVE: Amol Taylor is a 69 y.o. male who was seen today along with Dorota Salter CNP for follow up of Bowel obstruction (HCC). He states he's feeling OK . He denies abdominal pain. He denies fever or chills and has been afebrile. He has been pulling at his NGT per nursing and it had to be reinserted overnight OBJECTIVE: Vitals: Temp: 98 F (36.7 C) BP: (!) 146/75 Respirations: 22 Pulse: 80 SpO2: 93 % Weight Wt Readings from Last 3 Encounters: 02/04/24 88.9 kg (196 lb) 07/24/23 79.4 kg (175 lb) 06/20/23 72.2 kg (159 lb 3.2 oz) Body mass index is 28.12 kg/m . 24HR INTAKE/OUTPUT: Intake/Output Summary (Last 24 hours) at 02/04/2024 1734 Last data filed at 02/04/2024 1713 Gross per 24 hour Intake -- Output 1750 ml Net -1750 ml Exam: GEN: Pleasantly confused and disoriented. EYES: EOMI, pupils equal NECK: Supple. No [...] lesions. DATA: Complete Blood Count: Recent Labs 02/02/24 2120 02/03/24 0535 02/04/24 0550 WBC 11.0 10.7 15.6* RBC 3.80* 3.90* 3.81* HGB 12.6* 12.9* 12.7* HCT 38.4* 39.0* 37.8* MCV 101.1 100.0 99.2 RDW 12.4 12.4 12.3 PLT 245 225 222 Recent Labs 02/02/24211902/03/24 0535 02/04/24 0550 NEUTROABS 8.20* 7.37 12.13* LYMPHOPCT 16* 20* 14* LYMPHSABS 1.72 2.18 2.14 MONOPCT 6 7 7 BASOPCT 0 1 0 IMMGRAN 0 0 0 CMP: Recent Labs 02/02/24211902/03/24 0535 02/04/24 0550 NA 142 144 145 K 4.1 3.8 3.7 CL 107 108* 108* CO2 25 26 26 BUN 26* 23 23 CREATININE 1.0 0.9 0.8 GLUCOSE 99 93 92 CALCIUM 8.9 9.5 8.9 BILITOT <0.2 -- -- ALKPHOS 165* -- -- AST 18 -- -- ALT 17 -- -- UA: Lab Results Component Value Date COLORU Yellow 06/11/2023 WBCUA 0 TO 2 06/11/2023 RBCUA None 06/11/2023 LEUKOCYTESUR NEGATIVE 06/11/2023 GLUCOSEU NEGATIVE 06/11/2023 KETUA NEGATIVE 06/11/2023 PROTEINU NEGATIVE 06/11/2023 HGBUR NEGATIVE 06/11/2023 CASTUA NOT REPORTED 12/05/2018 BACTERIA TRACE (A) 06/11/2023 YEAST NOT REPORTED 12/05/2018 Lactic Acid: No results for input(s): LACTA , LACTSEPSIS in the last 72 hours. High Sensitivity Troponin: No results for input(s): TROPHS in the last 72 hours. Microbiology / Cultures: Results No results found for the last 336 hours. Imaging Data: XR ABDOMEN (2 VIEWS) Result Date: 02/04/2024 EXAMINATION: TWO XRAY VIEWS OF THE ABDOMEN 02/04/2024 7:37 am COMPARISON: February 03, 2024 x-ray abdomen HISTORY: ORDERING SYSTEM PROVIDED HISTORY: recurrent partial sbo progress study TECHNOLOGIST PROVIDED HISTORY: recurrent partial sbo progress study FINDINGS: Enteric tube with tip and side-port in the stomach. Dilated loops of small bowel in the left abdomen measuring up to 4.7 cm appear more prominent than in the prior study. There remains gas within the colon as well. Persistent dilated loops of small bowel which could represent ileus or partial small bowel obstruction. These appears slightly more prominent than in the prior study XR CHEST PORTABLE Result Date: 02/03/2024 EXAMINATION: ONE XRAY VIEW OF THE CHEST 02/03/2024 6:15 pm COMPARISON: Chest x- ray 02/03/2024 1:11 p.m. HISTORY: ORDERING SYSTEM PROVIDED HISTORY: central line placement TECHNOLOGIST PROVIDED HISTORY:central line placement FINDINGS: Right internal jugular central venous catheter tip at the cavoatrial junction. Mild left basilar atelectasis is unchanged. Costophrenic angles are clear. NG tube tip projects over the body of the stomach. The bones are intact. Right internal jugular central venous catheter tip at the cavoatrial junction. XR ABDOMEN (KUB) (SINGLE AP VIEW) Result Date: 02/03/2024 EXAMINATION: ONE SUPINE XRAY VIEW(S) OF THE ABDOMEN 02/03/2024 1:42 pm COMPARISON: Abdomen 07/24/[address] scan of the abdomen and pelvis 02/02/2024 HISTORY: ORDERING SYSTEM PROVIDED HISTORY: progress study/recurrent sbo/ok to do at bedside TECHNOLOGIST PROVIDED HISTORY: progress study/recurrent sbo/ok to do at bedside FINDINGS: NG tube tip projects over the body of the stomach with the side hole projecting over the body of the stomach. There is some dilated loops of small bowel as well as gaseous distension loops of colon with gas in the distal colon. 1. NG tube tip projects over the body of the stomach. 2. Dilated loops of small bowel and colon with gas in the distal colon. This could represent ileus or partial small bowel obstruction. XR CHEST PORTABLE Result Date: 02/03/2024 EXAMINATION: ONE XRAY VIEW OF THE CHEST 02/03/2024 1:15 pm COMPARISON: Chest radiograph 02/03/2024 HISTORY: ORDERING SYSTEM PROVIDED HISTORY: verify central venous catheter tip placement. (If still mid right atrium how far to pull back?) TECHNOLOGIST PROVIDED HISTORY: verify central venous catheter tip placement. (If still mid right atrium how far to pull back?) FINDINGS: Lines and Tubes: Right internal jugular central venous catheter is present with tip terminating in the right atrium. An enteric tube is present with tip and side port overlying the left upper quadrant. Stimulator noted about the left chest wall with leads terminating within the left lateral neck. Lungs: Left basilar opacities. Pleura: No effusion or pneumothorax. Cardiomediastinal silhouette: Normal contours. Bones: Old healed fracture of the distal left clavicle. Bilateral acromioclavicular and glenohumeral joint arthrosis Soft tissues: Normal. 1. Right internal jugular central venous catheter is present with tip terminating in the right atrium. 2. Left basilar opacities may represent atelectasis or pneumonia. XR CHEST PORTABLE Result Date: 02/03/2024 EXAMINATION: ONE XRAY VIEW OF THE CHEST 02/03/2024 3:04 am COMPARISON: 06/11/2023 HISTORY: ORDERING SYSTEM PROVIDED HISTORY: R IJ CVC placed TECHNOLOGIST PROVIDED HISTORY: R IJ CVC placed FINDINGS: Interval placement of a right IJ approach central venous catheter with the tip seen in the mid right atrium. No pneumothorax is identified. Low lung volumes, with perihilar atelectasis. No consolidation. No pleural effusion. No acute osseous abnormality is identified. Left-sided chest wall stimulator device with leads at the left neck. Degenerative change in the shoulders bilaterally. Interval placement of a right IJ approach central venous catheter with tip in the mid right atrium.No pneumothorax. XR ABDOMEN FOR NG/OG/NE TUBE PLACEMENT Result Date: 02/03/2024 EXAMINATION: ONE SUPINE XRAY VIEW(S) OF THE ABDOMEN 02/03/2024 1:49 am COMPARISON: CT abdomen and pelvis 02/02/2024. HISTORY: ORDERING SYSTEM PROVIDED HISTORY: Confirmation of course of NG/OG/NE tube and location of tip of tube TECHNOLOGIST PROVIDED HISTORY: Confirmation of course of NG/OG/NE tube and location of tip of tube Portable?->Yes FINDINGS: The tip and side port of the enteric tube arein the gastric lumen. No evidence of pneumoperitoneum. No acute osseous abnormality. The tip and side port of the enteric tube are in the gastric lumen. CT ABDOMEN PELVIS WO CONTRAST Additional Contrast? None Result Date: 02/02/2024 EXAMINATION: CT OF THE ABDOMEN AND PELVIS WITHOUT CONTRAST 02/02/2024 10:13 pm TECHNIQUE: CT of theabdomen and pelvis was performed without the administration of intravenous contrast. Multiplanar reformatted images are provided for review. Automated exposure control, iterative reconstruction, and/or weight based adjustment of the mA/kV was utilized to reduce the radiation dose to as low as reasonably achievable. COMPARISON: CT abdomen and pelvis 07/21/2023. HISTORY: ORDERING SYSTEM PROVIDED HISTORY: Vomiting; hx of SBO TECHNOLOGIST PROVIDED HISTORY: Vomiting; hx of SBO Decision Support Exception - unselect if not a suspected or confirmed emergency medical condition->Emergency Medical Condition (MA) FINDINGS: Lower Chest: Mild cardiomegaly. Coronary artery atherosclerotic vascular calcifications. Mild bibasilar atelectasis. Chronic unchanged elevation of the left hemidiaphragm. Organs: Lack of intravenous contrast limits evaluation of the solid organs, vascular structures, and bowel. The liver and gallbladder are unremarkable. No biliary ductal dilatation is identified. The pancreas, spleen, and bilateral adrenal glands are unremarkable. The right kidney is unremarkable. Chronic left Gina renal subcapsular fluid collection with peripheral calcifications unchanged from the previous exam. No further evaluation recommended. No obstructive uropathy or urinary collecting system c alculi. GI/Bowel: No evidence of acute appendicitis. The colon is unremarkable. Small bowel anastomotic sutures in the left lower quadrant with focal unchanged dilatation likely postoperative in etiology. The stomach is distended with gas and fluid. No wall thickening or convincing evidence of obstruction. Pelvis: The urinary bladder is normal in appearance. No prostatomegaly. No free fluid in the pelvis. No pelvic or inguinal lymphadenopathy. Peritoneum/Retroperitoneum: The abdominal aorta is normal in caliber with moderate calcific plaquing. No retroperitoneal or mesenteric lymphadenopathy is identified. No free air or fluid is seen in the abdomen. Bones/Soft Tissues: No acute osseous or soft tissue abnormality. 1. No acute abnormality in the abdomen or pelvis. 2. Gastric distension of uncertain clinical significance. Gastroparesis is not excluded. ASSESSMENT: Principal Problem: Bowel obstruction (HCC) Active Problems: MR (mental retardation), severe Seizure disorder (HCC) S/P placement of VNS (vagus nerve stimulation) device AFTAB (obstructive sleep apnea) Dysphagia Resolved Problems: Epilepsy (HCC) PLAN: I agree with the assessment, plan and medical decision making documentation as outlined by APC: Treatment plan: Gen Surg consult appreciated: discussed with Dr. Clayton Continue NGT to LIWS NPO Soft wrist restraints utilized to protect NGT from being pulled out SBFT tomorrow Disposition: Discharge plan is pending [facility] VISIT, PHYSICIAN ATTESTATION: [id number] I personally performed a substantive part of the MDM during the patient's visit. I personally evaluated and examined the patient. I personally made or approved the documented management plan and acknowledge its risk of complications. Test interpretation: My independent EKG interpretation: Normal sinus rhythm with normal axis and intervals, no ST segment changes Management and/or test interpretation discussed with OTONIEL Zuñiga MD, M.D. 02/04/2024 5:34 PM * Kathy Llamas RN - 02/04/2024 7:22 AM EST Service Coordinator Elderly Facility entered patient's room to clamp NG tube so patient could be transported to imaging. Upon arrival in room it was noted that patient's NG tube had been pulled out of nostril; external measurement was around 40cm. Pt stated that he sneezed and it just came out. NG tube reinserted at this time to 65cm and tapped. * Kathy Llamas RN - 02/04/2024 6:15 AM EST Service Coordinator Elderly Facility at bedside at this time to perform shift assessment. Patient is lying in bed at this time. Vital signs taken and assessment completed at this time. Patient is alert to self and location only at this time; patient reoriented to situation and time. Patient has no current complaints of pain. Patient denies any further needs at this time. Call light within reach, bed alarm on for safety, care ongoing. * Keyanna Friend RN - 02/03/2024 6:39 PM EST Patient shift assessment and vitals completed at this time as charted. Patient currently denies pain. NG is in at 65cm on low int suction. Patient states no current needs at this time, call light is in reach, plan of care is ongoing. Bed alarm on, plan of care is ongoing. * Roya Iglesias PT - 02/03/2024 1:14 PM EST Physical Therapy Facility/Department: [facility] Physical Therapy Initial Assessment Name: Amol Taylor : 1955 Date of Service: 02/03/2024 Discharge Recommendations: 24 hour supervision or assist Patient Diagnosis(es): The encounter diagnosis was Abdominal distention. Past Medical History: has a past medical history of Arthritis, BPH (benign prostatic hyperplasia), Dysphagia, GERD (gastroesophageal reflux disease), Hearing loss, HLD (hyperlipidemia), Insomnia, MR (mental retardation), Periorbital cellulitis, SBO (small bowel obstruction) ([facility]), Seizures (HCC), Ve ntral hernia, and Vitamin D deficiency. Past Surgical History: has a past surgical history that includes Abdomen surgery (2012, 2013); laparoscopy (10/19/13); laparotomy (10/19/13); cast application (Left); Hydrocele surgery (10/2015); Vagusnerve stimulator insertion; and Vagus nerve stimulator insertion (12/14/2015). Assessment Assessment: Pt is not in need of skilled PT. Pt is dependent and resides in assisted living. He is w/c bound and depends on lift for transfers. Therapy Prognosis: Poor Decision Making: Medium Complexity Requires PT Follow-Up: No Activity Tolerance Activity Tolerance: Patient tolerated evaluation without incident Plan Physical Therapy Plan General Plan: Discharge with evaluation only Safety Devices Type of Devices: Bed alarm in place, Call light within reach, Patient at risk for falls, Left in bed Restrictions Restrictions/Precautions Restrictions/Precautions: Fall Risk, General Precautions Subjective General Patient assessed for rehabilitation services?: Yes Follows Commands: Within Functional Limits Subjective Subjective: Pt gave history and states that he can loft his leg. He reports he gets lifted into thew/c and does not stand. No prior level of function left documented in chart. Social/Functional History Social/Functional History Lives With: Home care staff Type of Home: Facility Additional Comments: WC bound dependent Self care. Unsure accuracy of pt. answers. Vision/Hearing Vision Vision: Within Functional Limits Hearing Hearing: Within functional limits Cognition Orientation Overall Orientation Status: Impaired Orientation Level: Oriented to person Objective Observation/Palpation Posture: Poor Observation: Pt does not appear to WB by observation of LEs and positioning of feet. Gross Assessment AROM: Generally decreased, functional Strength: Grossly decreased, non-functional Bed Mobility Training Bed Mobility Training: No Transfer Training Transfer Training: No Gait Gait Training: No Wheelchair Management Wheelchair Management: No OutComes Score AM-PAC - Mobility AM-PAC Basic Mobility - Inpatient How much help is needed turning from your back to your side while in a flat bed without using bedrails?: Total How much help is needed moving from lying on your back to sitting on the side of a flat bed withoutusing bedrails?: Total How much help is needed moving to and from a bed to a chair?: Total How much help is needed standing up from a chair using your arms?: Total How much help is needed walking in hospital room?: Total How much help is needed climbing 3-5 steps with a railing?: Total AM-PAC Inpatient Mobility Raw Score : 6 AM-PAC Inpatient T-Scale Score : 23.55 Mobility Inpatient CMS 0-100% Score: 100 Mobility Inpatient CMS G-Code Modifier : CN Goals Short Term Goals Time Frame for Short Term Goals: NA Patient Goals Patient Goals : unable to state Education Patient Education Education Given To: Patient Education Provided: Role of Therapy;Plan of Care Education Method: Verbal Barriers to Learning: Cognition Education Outcome: Verbalized understanding;Continued education needed Therapy Time Individual Concurrent Group Co-treatment Time In 09 Time Out 0914 Minutes 13 Roya Iglesias, PT, DPT * Valeria Gomez RN - 02/03/2024 12:19 PM EST Spoke with nurse from [facility] and provided update. She informed that someone would be bringing his magnet out. * Yolanda Valdivia OT - 02/03/2024 10:07 AM EST Occupational Therapy Facility/Department: [facility] MED SURG Occupational Therapy Initial Assessment Name: Amol Taylor : 1955 Date of Service: 02/03/2024 Discharge Recommendations: 24 hour supervision or assist Patient Diagnosis(es): The encounter diagnosis was Abdominal distention. Past Medical History: has a past medical history of Arthritis, BPH (benign prostatic hyperplasia), Dysphagia, GERD (gastroesophageal reflux disease), Hearing loss, HLD (hyperlipidemia), Insomnia, MR (mental retardation), Periorbital cellulitis, SBO (small bowel obstruction) (HCC), Seizures (HCC), Ve ntral hernia, and Vitamin D deficiency. Past Surgical History: has a past surgical history that includes Abdomen surgery (2012, 2013); laparoscopy (10/19/13); laparotomy (10/19/13); cast application (Left); Hydrocele surgery (10/2015); Vagusnerve stimulator insertion; and Vagus nerve stimulator insertion (12/14/2015). Treatment Diagnosis: Bowel Obstruction. Assessment Assessment: No OT recommended at this time. Treatment Diagnosis: Bowel Obstruction. Assistance / Modification: Dependent No Skilled OT: No OT goals identified REQUIRES OT FOLLOW-UP: No Activity Tolerance Activity Tolerance: Treatment limited secondary to decreased cognition;Treatment limited secondary to medical complications (free text) Plan Occupational Therapy Plan Additional Comments: OT Eval only Restrictions Restrictions/Precautions Restrictions/Precautions: Fall Risk, General Precautions, Other (comment) (WC bound at [facility].) Subjective General Chart Reviewed: Yes Patient assessed for rehabilitation services?: Yes Response to previous treatment: Patient with no complaints from previous session Family / Caregiver Present: No Social/Functional History Social/Functional History Lives With: Home care staff Type of Home: Facility Additional Comments: WC bound dependent Self care. Unsure accuracy of pt. answers. Objective Temp: 97.7 F (36.5 C) Pulse: 74 Heart Rate Source: Monitor Respirations: 18 SpO2: 96 % O2 Device: None (Room air) BP: 126/71 MAP (Calculated): 89 BP Location: Right upper arm BP Method: Automatic Patient Position: Semi fowlers Safety Devices Type of Devices: Call light within reach;Bed alarm in place ADL Additional Comments: Dependent Vision Vision: Within Functional Limits Hearing Hearing: Within functional limits Orientation Overall Orientation Status: Impaired Orientation Level: Oriented to person Education Given To: Patient Education Provided: Plan of Care Education Method: Verbal Barriers to Learning: Cognition Education Outcome: Verbalized understanding G-Code OutComes Score AM-PAC - ADL Tinneti Score Goals Patient Goals Patient goals : N/A Therapy Time Individual Concurrent Group Co-treatment Time In 0946 Time Out 1000 Minutes 14 Timed Code Treatment Minutes: 0 Minutes Yolanda Valdivia, OT * Keyanna Friend RN - 02/03/2024 3:55 AM EST Patient admitted to room 320 at this time. Patient is alert and is oriented to person and place butit disoriented to time and situation. Patient has an NG in at 65cm with pink/faith tinged output at low intermit suction. Patient denies pain. Patient incont and changed at this time. Patient navigatorcompleted along with list of medications from [facility]. Patients states no further needs,call light is in reach, bed alarm is on, plan of care is ongoing. * Ilana Clayton DO - 02/03/2024 12:03 AM EST Spoke to ER now. Plan: Admit to hospitalist. NGT to LIS. CT images reviewed. Strict npo. Soft restraints if needed- canot pull the NGT Am xrays ordered. Dr Clayton [phone] Gen Surg documented in this encounterBon [facility] Telephone encounter Note* Telephone Encounter - Shawnee Butler DO - 02/06/2024 12:08 PM EST Done thanks [facility] [id number] Miscellaneous Notes* Telephone Encounter - Shawnee Butler DO - 02/06/2024 12:08 PM EST Done thanks * Telephone Encounter - Aman Hills MA - 02/06/2024 10:38 AM EST [facility] home calls stating that they were told to call with the pts weight as ND wanted to DCdiastat and start valtoco. Pt weighs 190lb. Also notes that he needs a refill of his lorazepam sent. documented in this encounterHermann Area District [id number] Telephone encounter Note* Telephone Encounter - Aman Hills MA - 02/06/2024 10:38 AM EST [facility] calls stating that they were told to call with the pts weight as ND wanted to DCdiastat and start valtoco. Pt weighs 190lb. Also notes that he needs a refill of his lorazepam sent. [facility] [id number] History of Present illness Narrative* Yolanda Starks RDH - 01/29/2024 10:41 AM EST ----- Monday, January 29, 2024 at 2:03:26 PM ----- ----- Provider: [id number] - Yolanda Starks RDH -- Clinic: [place] [address] ----- PROPHY Patient presents for prophy w/ Caregiver. Reviewed patient's medical history. Patient has a history of: See Epic, Epilepsy Cerebral palsy No contraindications, patient is ready for treatment. Patient is experiencing: no complaints of pain, sensitivity or tooth-related issues Tissue consistency: Inflamed and Retractable Inflammation: Generalized and Moderate Bleeding: Generalized and Moderate Recession: Localized and Mild Plaque: Generalized, Interproximal, Marginal, Supragingival, Subgingival, Heavy and with food debris Calculus: Generalized, Interproximal, Marginal, Supragingival, Subgingival and Heavy Stain: Generalized and Moderate Stressed flossing and proper brushing frequency/technique. NOTE: Patient will need more assistance with flossing and brushing daily. Some Subgingival calculus still present after prophy. Patient has special needs and tolerated procedure as best he could. Next Visit: Periodic Exam/Xrays Yolanda Starks RDH ----- Signed on Monday, January 29, 2024 at 2:13:11 PM ----- ----- Provider: [id number] - Yolanda Starks RDH -- Clinic: [place] [address] ----- documented in this [id number] Telephone encounter Note* Telephone Encounter - Brittnee Aguilar - 01/25/2024 2:53 PM EST [facility] stating that had faxed over some papaerwork to be filled out. Please fill out paperwork when the fax is processed and fax back to [facility] at [phone] Message sent to [facility] [id number] Miscellaneous Notes* Telephone Encounter - Brittnee Aguilar - 01/25/2024 2:53 PM EST pt [facility] stating that had faxed over some papaerwork to be filled out. Please fill out paperwork when the fax is processed and fax back to [facility] at [phone] Message sent to [facility] documented in this [id number] History of Present illness Narrative* Aftab Balderas DDS - 01/25/2024 10:49 AM EST ----- Thursday, January 25, 2024 at 11:48:03 AM ----- ----- Provider: [id number] Olga Hansen, -- Clinic: [place] [address] ----- COMPOSITE JAINISM Patient is scheduled for Episcopalian on tooth #10 surface DLB. Pt was accompanied by caregiver. Reviewed Medical History. Pt exhibited the following conditions: see Epic. Patient is ready for treatment. Topical Benzocaine gel applied at the injection site for 2 minutes. Administered 1 carpules of Lidocaine, 2% with Epinephrine 1:100,000,. Cotton roll isolation achieved. Decay/existing orthodoxy removed, cavity prepared. Selectively etched enamel with 37% phosphoric acid, rinsed, and blot dried. Xeno IV pace applied and light-cured. Condensed packable composite shade A2 in light cured increments using Mylar strip and wedge. Finished with finishing burs, checked occlusion, verified proximal contacts and orthodoxy was polished. Rinsed and suctioned intraorally, advised patient to not eat until local anesthesia wears off. NOTE: Pt was very difficult to treat due his several medical conditions. IV sedation was consideredbut due medical conditions, he is not a candidate for it. Tooth #11 will keep in watch for now. Next Visit: Baxter-Prep ----- Signed on Thursday, January 25, 2024 at 5:10:20 PM ----- ----- Provider: Deb Rivera DDS -- Clinic: [place] [address] ----- documented in this [id number] History of Present illness Narrative* Shawnee Butler DO - 01/22/2024 5:30 PM EST Chief Complaint Patient presents with Seizures Subjective Amol Laurent Kayla, 69 y.o., male HPI Patient presents today for a follow up. He ambulates in a wheelchair. He presents with his sister and caregiver. The patient has had 4 seizures in the last month. Patient resides at [facility] in [place]. He is still taking Keppra and Lamictal. Denies any recent falls. Patient is not in any therapy at this time. Patient is overall doing well no new issues. He does have the occasional seizures. He is toleratinghis medicine and not having any missed doses. Past Medical History: Diagnosis Date At moderate risk for fall BPH without urinary obstruction Chronic constipation Dyslipidemia (CMS/HCC) Glaucoma, unspecified glaucoma type, unspecified laterality (CMS/HCC) Hearing loss, unspecified hearing loss type, unspecified laterality Left ankle joint deformity Left arm weakness Macrocytic anemia Mild eczema Moderate developmental delay Osteoarthritis, unspecified osteoarthritis type, unspecified site Overactive bladder Overweight Partial small bowel obstruction (CMS/HCC) Seizure disorder (CMS/HCC) Unsteady gait Ventral hernia Past Surgical History: Procedure Laterality Date ABDOMINAL SURGERY ABDOMINAL SURGERY ABDOMINAL SURGERY CYSTOCELE REPAIR OTHER SURGICAL HISTORY 2007 surgery disease: Bowel obstruction OTHER SURGICAL HISTORY 2002 vagal nerve stimulation VENTRAL HERNIA REPAIR Family History Problem Relation Name Age of Onset Diabetes Mother Thyroid cancer Mother Hypertension Mother Diabetes Father Cancer Father Social History Tobacco Use Smoking status: Never Smokeless tobacco: Never Substance Use Topics Alcohol use: Not on file Allergies: Penicillins and Clindamycin General: No fever or chills HEENT: No nasal congestion or runny nose Pulmonary: No shortness of breath or cough Cardiovascular: No chest pain or palpitations GI: No nausea or vomiting : No dysuria or hematuria Musculoskeletal: No new aches or pains or muscle weakness Infectious: no recurrent fevers or infections Dermatologic: No rashes or skin lesions Neurologic: No new headaches or dizziness Vitals: 01/22/24 1747 BP: 108/70 Pulse: 74 SpO2: 92% There is no height or weight on file to calculate BMI. Neurologic exam: General: Normal body habitus, cooperative, pleasant Mental status: Awake, alert to person, not place or time. Recent and remote memory MRDD Attention and concentration are normal. Fund of knowledge MRDD HEENT: NC/AT Cranial nerves: CN II: Visual matta full to confrontation. No loss of vision CN III, IV, : pupils equal round and reactive to light. Extraocular movements intact. No ptosis present. CN V: Facial sensation is normal. CN VII: Full and symmetric facial movement. CN VIII: Hearing is normal CN IX and X: Palate elevates symmetrically. CN XI: Shoulder shrug is normal bilaterally. CN XII: Tongue is midline without atrophy or fasciculation. Speech: Baseline dysarthria, repetitive language, few words Pronator drift: Negative bilateral upper extremity Coordination: Dysmetria finger to nose and rapid alternating movements Sensory: Sensation is intact to light, temperature and vibratory touch throughout four extremities. 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 Have some small breakthrough events but none have been overly problematic. They have not needed the Diastat but would like to see if he can get the nasal rescue medicine. . She believes they are decreasing the sweeping of the VNS and not doing it multiple times. He did have some further bowel obstructions over the winter and had events with this. He is tolerating his meds His VNS was functioning well and his battery is 1/2 full at last visit. He had the auto stimulator generator placed but the auto is not on. He has memory loss and cognitive deficits with his MRDD that is stable . 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 He will continue on the current medicines as is. . Review and summary of old records: September 2022 normal glucose slightly elevated BUN at 29 creatinine 1.15 normal sodium potassium normalliver panel was normal, WBC slightly high at 14.9 but hemoglobin and hematocrit and platelets were normal, lipase normal lactic acid normal 06/2023 CMP slight variations, CBC with diff low RBC, H & H 10.6/31.1 . . . Plan Reviewed paperwork sent and labs Call in for any signs of infection and we can order some blood work and urine, events seem to be his normal pattern at this time VNS interrogated battery 1/ full at January 25, 2024 visit We will interrogate at next visit only swipe the battery once every 5 minues for a sz. He should have Diastat for a longer seizure only and Ativan for more of a cluster of seizures but this should not be both given in the same timeframe Continue current medications Vimpat 150 mg BID Lamictal 400 mg in the am, 600 mg at bedtime Keppra 1500 mg in the am, 2000 mg at bedtime Mysoline 250 mg in the am, 375 mg at bedtime monitor for more events. consider turning on the auto if warranted. This was discussed with the patient, all questions were answered and they agreed with the treatmentplan. The patient is to call with any worsening of the condition or new symptoms. VNS Readings: Output Current: 2.25 mA Signal Frequency: 25 Hz Pulse Width: Hz 250 Signal On Time: 60 sec Signal Off Time: 1.8 min Magnet Output Current: 2.5 Pulse Width: 500 On Time:60 sec # Magnet Usages: 82 Autostim : on/off Autostim Pulse Width: Autostim On Time: Lead Test: Battery Life: 03/06 full Model: Seriel #: Manufactured: Implant Date: Return to clinic: documented in this encounterHermann Area District [id number] Instructions* Patient Instructions* Trace Woodruff RN - 11/22/2023 1:54 PM EDT -- encourage lots of water intake; ideally 64-75 oz daily -- monitor his bowels and keep them soft to avoid constipation and ultimately another bowel obstructions -- schedule modified barium swallow; checking for aspiration -- constant reminder to eat slow and take his time -- continue on Linzess to help with constipation - senna to be used as needed for constipation -- continue pantoprazole for acid reflux -- contact ARA Woodward if he gets another obstruction, , opt 3 documented in this encounterAcmc Healthcare System09-19-2024 History of Present illness Narrative* Uma Clark MD - 11/22/2023 1:30 PM EDT Consultation requested by Dr. Carson Dior for an opinion regarding recurrent SBO. My final recommendations will be communicated back to the requesting physician by way of shared medical record or fax. 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 Patient cannot provide much of a history but does verbalize and denies abdominal pain and per sister and geriatric care manager there has been on constipation, diarrhea, hematochezia, melena, weight loss, nausea, vomiting, GERD. He does have coughing associated with eating and does eat relatively fast. He has been on pureed and thickened diet for some time. He continues on protonix. He is wheel chair bound. Past Clinical Work-Up: Small bowel follow through 06/21/2023: Contrast passage through dilated loops of small bowel and into the colon in the right upper quadrant by 4 hours. Small bowel follow through 06/13/2023: Findings compatible with ileus pattern. Acute Abd Series 06/13/23: 1. No acute cardiopulmonary process. 2. Scattered gas-filled large/small bowel loops throughout the abdomen and pelvis with several mildly distended gas-filled small bowel loops up to 4 cm. Findings may represent ileus versus partial/intermittent SBO. CTAP 06/11/2023: 1. Small bowel distension without focal transition point identified. There is also a mild amount of liquid stool in the colon. These findings are most suggestive of ileus and diarrheal process versus partial obstructing process. 2. Additional chronic and benign findings, as described. MBS 04/16/2023: IMPRESSION: 1. Abnormal swallow study as noted above with significant stasis in the hypopharynx at the level ofthe large osteophyte at C5/6 vertebrae. 2. Please correlate with dedicated speech pathology report for additional details and recommendations. Labs 06/21/2023: Sodium 135 - 144 mmol/L 145 High Potassium 3.7 - 5.3 mmol/L 4.3 Chloride 98 - 107 mmol/L 110 High CO2 20 - 31 mmol/L 21 Anion Gap 9 - 17 mmol/L 14 Glucose 70 - 99 mg/dL 95 BUN 8 - 23 mg/dL 30 High Creatinine 0.7 - 1.2 mg/dL 0.9 Est, Glom Filt Rate >60 mL/min/1.73m2 >90 Bun/Cre Ratio 9 - 20 33 High Calcium 8.6 - 10.4 mg/dL 9.7 Total Protein 6.4 - 8.3 g/dL 7.7 Albumin 3.5 - 5.2 g/dL 4.2 Total Bilirubin 0.3 - 1.2 mg/dL 0.3 Alkaline Phosphatase 40 - 129 U/L 133 High ALT 5 - 41 U/L 17 AST <40 U/L 16 WBC 3.5 - 11.3 k/uL 10.0 RBC 4.21 - 5.77 m/uL 4.04 Low Hemoglobin 13.0 - 17.0 g/dL 13.2 Hematocrit 40.7 - 50.3 % 42.6 MCV 82.6 - 102.9 fL 105.4 High MCH 25.2 - 33.5 pg 32.7 MCHC 28.4 - 34.8 g/dL 31.0 RDW 11.8 - 14.4 % 12.7 Platelets 138 - 453 k/uL 289 MPV 8.1 - 13.5 fL 9.3 NRBC Automated 0.0 per 100 WBC 0.0 Neutrophils % 36 - 65 % 68 High Lymphocytes % 24 - 43 % 20 Low Monocytes % 3 - 12 % 8 Eosinophils % 1 - 4 % 3 Basophils % 0 - 2 % 1 Immature Granulocytes % 0 % 0 Neutrophils Absolute 1.50 - 8.10 k/uL 6.73 Lymphocytes Absolute 1.10 - 3.70 k/uL 2.02 Monocytes Absolute 0.10 - 1.20 k/uL 0.83 Eosinophils Absolute 0.00 - 0.44 k/uL 0.28 Basophils Absolute 0.00 - 0.20 k/uL 0.07 Immature Granulocytes Absolute 0.00 - 0.30 k/uL 0.03 ALLERGIES Allergen Reactions Bleach [Other] Clindamycin Rash Penicillins Swelling PAST MEDICAL HISTORY Diagnosis Date Closed fracture of shaft of fibula 11/24/2014 Mental retardation Nontoxic uninodular goiter stable Seizure disorder (HCC) follows with neuro Kelton Hagen PAST SURGICAL HISTORY Procedure Laterality Date INSERT PICC 05/11/2014 LAP SM BOWEL RESECTION W/ANASTOMOSIS, SNGL 10/2013 fascia closed, skin open for SBO MIDLINE INSERTION/CONSULT 05/04/2014 MIDLINE INSERTION/CONSULT 08/08/2016 PAST SURGICAL HISTORY OF 7 months old abd surgery PAST SURGICAL HISTORY OF fracture clavicle PAST SURGICAL HISTORY OF VAGAL NERVE STIMULATOR for seizure Px PAST SURGICAL HISTORY OF 05/05/14 Exploratory laparotomy, small bowel resection and anastomosis , extensive lysis of adhesions FAMILY HISTORY Problem Relation Age of Onset Ischemic Heart Disease Mother other (Thyroid Ca) Mother other (Multiple Myeloma) Mother other (DM) Mother other (htn) Mother other (Lung Ca) Father smoker other (A fib) Brother other (Heart attack) Brother other (HTN) Sister other (DM) Sister other (leukemia) Maternal Uncle other (pancreatic Ca) Maternal Aunt Ischemic Heart Disease Maternal Grandfather Alzheimer's Disease Maternal Grandmother other (HTN) Maternal Grandmother other (dm) Paternal Grandmother Social History Tobacco Use Smoking status: Never Smokeless tobacco: Never Substance Use Topics Alcohol use: No Drug use: No Current Outpatient Medications Medication Sig albuterol HFA (PROVENTIL HFA, VENTOLIN HFA) 90 mcg/actuation inhaler Inhale 2 Puffs as instructed every 4 hours as needed. benzonatate (TESSALON PERLE) 100 mg capsule Take 100 mg by mouth. carbamide peroxide (EAR DROPS) 6.5 % otic solution 4 Drops once every month. linaclotide (LINZESS) 145 mcg capsule Take 145 mcg by mouth daily at 6 am. Take capsule on an emptystomach at least 30 minutes before a meal at the same time each day. Capsule should be swallowed whole. DO NOT chew or crush lacosamide (VIMPAT) 150 mg tab Take by mouth twice daily. diazepam (DIASTAT) 20 mg crtg by RECTAL route as needed (for cluster seizure lasting more than 15 minutes). finasteride (PROSCAR) 5 mg tablet Take 1 tablet by mouth once daily. ondansetron orally disintegrating (ZOFRAN ODT) 4 mg disintegrating tablet Take 1 tablet by mouth every 8 hours as needed. lorazepam(ATIVAN 0.5 MG TAB) Take one(1) tablet every eight(8) hours as needed for seizures lamotrigine(LAMICTAL 200 MG TAB) take two 2 tablets in am and three(3)tablets in pm hydrOXYzine pamoate (VISTARIL) 25 mg capsule Take 25 mg by mouth three times a day as needed. MELATONIN ORAL Take by mouth. MAGNESIUM OXIDE ORAL Take 400 mg by mouth once daily. tamsulosin ER (FLOMAX) 0.4 mg cap Take 1 capsule by mouth twice daily. 30 minutes after the same meal each day. polyethylene glycol 3350 (MIRALAX, GLYCOLAX) 17 gram packet Take 1 Packet by mouth once daily as needed (constipation). levETIRAcetam (KEPPRA) 1,000 mg tablet Take 1,500 mg by mouth twice daily. calcium carbonate (CALCIUM 600) 600 mg (1,500 mg) tab Take 1 tablet by mouth twice daily. (Patient not taking: Reported on 11/22/2023) Loperamide HCl (IMODIUM) 2 mg tab Take 1 tablet by mouth as needed (Patient takes two capsules on onset, one capsule after each loose stool and up to 4 in 24 hours). inulin-chromium picolinate (FIBER SELECT GUMMIES) 2-100 gram-mcg chew Patient takes 5mg gummies, once gummy twice daily Ibuprofen 200 mg cap Take 2 capsules by mouth every 4 hours (for headaches, muscle pain or fever over 100 degrees) PRIMIDONE 250 MG TAB Take one(1)tablet in am and take one and one-half(1&1/2) tablets in pm. No current facility-administered medications for this visit. REVIEW OF SYSTEMS: PAIN ASSESSMENT: Negative for pain, history of chronic pain, or current treatment for a chronic pain condition.. GENERAL: No weight loss, malaise or fevers HEENT: Negative for frequent or significant headaches, No changes in hearing or vision, no nose bleeds or other nasal problems NECK: Negative for lumps, goiter, pain and significant neck swelling RESPIRATORY: Negative for cough, hemoptysis, wheezing, COPD, dyspnea or shortness of breath CARDIOVASCULAR: Negative for chest pain, leg swelling, hypertension, CHF or palpitations GI: See HPI above : No history of dysuria, frequency or incontinence MUSCULOSKELETAL: Negative for joint pain or swelling, back pain or muscle pain SKIN: Negative for lesions, rash, and itching PSYCH: Negative for sleep disturbance, mood disorder and recent psychosocial stressors HEMATOLOGY/LYMPHOLOGY: Negative for prolonged bleeding, bruising easily or swollen nodes ENDOCRINE: Negative for cold or heat intolerance, polyuria, polydipsia and goiter NEURO: No history of headaches, syncope, paralysis, seizures or tremors PHYSICAL EXAMINATION: BP 105/65 Pulse 71 Temp (Src) 97.8 (Oral) Resp 18 Ht 5' 6 (1.68m) Wt 183 lb 6.8 oz (83.2kg) SpO2 97% BMI 29.62 kg/(m^2). General appearance: Well appearing, alert, in no acute distress, well-hydrated, well nourished. Skin: Skin color, texture, turgor normal, no suspicious rashes or lesions Head: Normocephalic, no masses, lesions, tenderness or abnormalities Eyes: Anicteric sclera. Pupils are equally round and reactive to light. Extraocular movements are intact. Ears: External ears normal, canals clear Nose/Sinuses: Nares normal, septum midline, mucosa normal, no drainage or sinus tenderness Oropharynx: Lips, mucosa, and tongue normal, teeth and gums normal, oropharynx normal Neck: Supple, no adenopathy; thyroid symmetric, normal size, no bruits Back: Normal exam Lungs: Lungs clear to auscultation. No wheezing, rhonchi, rales Heart: RRR without murmur, gallop, or rubs. No ectopy Abdomen: Normal abdominal exam, Abdomen soft, non-tender. Bowel sounds normal. No masses, organomegaly Extremities: No deformities, edema, skin discoloration, clubbing or cyanosis. Good capillary refill. Musculoskeletal: No joint swelling, deformity, or tenderness Peripheral pulses: Normal Neuro: Gait normal. Reflexes normal and symmetric. Sensation grossly intact. Rectal: Examination deferred IMPRESSION/DISCUSSION/PLAN: #1.) Recurrent partial SBO over the years per sister which per her he has been in the hospital numerous times and has required NG tube placements each time and many times (up to 6-7 per sister) has had lysis of adhesions and overall clinically he is stable at this time fortunately with no problems with constipation. Recommendations: - Maintain regular stools and ideally prevent constipation with increasing water (which is thickened) to 80 ounces daily and continue linzess, miralax and senokot. - Will attempt to retrieve last colonoscopy done at [facility] by Dr. Christiansen (sister thinks he did last colonoscopy) several years ago. - Continue protonix. #2.) History of OPD currently on thickened liquids with continued intermittent coughing associated with eating in which repeat evaluation and assessment of OPD to be undertaken with MBS. Follow up 6 months. Uma Clark MD documented in this encounterA[facility] System08-15-[facility]24 History of Present illness Narrative* Fidelia Brumfield DDS - 10/18/2023 11:02 AM EDT ----- October at 5:32:06 PM ----- ----- Provider: [id number] Rivera DDS -- Clinic: [facility] ----- INITIAL/COMPREHENSIVE EXAM Special needs Patient presents for an Initial Examination with caregiver. Reviewed patient's medical history. Patient has a history of: Epilepsy, Cerebral Palsy, Glaucoma, developmental delay. No contraindications, patient is ready for treatment. Patient's chief complaint: Comp Exam I don't have any pain Pain Scale: 0/10 Radiographs taken today were: FMX Clinical Examination reveals: Patient has his complete dentition. Oh is poor, generalized plaque deposits and inflammation observed. However, no deep pockets noted and no significant bone loss. Periodontal diagnosis is gingivitis, and patient was scheduled for a prophy. Restorative exam was completed and the patient has multiple restorations in good clinical condition, however, the following was observed and planned: 1) Tooth #10 has an existing caries planned for composite placement. 2) Tooth #11 has an Collazo type II fracture planned for a ceramic crown. Soft tissue evaluation: Within Normal Limits TMJ evaluation: Normal TMJ Completed current status of dentition on the charting. Went over needs and treatment plan options with the patient. OHI were discussed with the patient. Written Instructions/AVS were also handed to the patient. Pt Concern: Full Exam was successfully done. Patient consented to the treatment plan. PRIOR: Prepared and filled for crown on #11 Next Visit: Prophy , restorative documented in this [id number] Hospital Discharge instructions Patient Education 07/31/2023 14:30:58 Benign Prostatic Hyperplasia Benign Prostatic Hyperplasia Benign prostatic hyperplasia (BPH) is an enlarged prostate gland that is caused by the normal agingprocess. The prostate may get bigger as a man gets older. The condition is not caused by cancer. The prostate is a walnut-sized gland that is involved in the production of semen. It is located in front of the rectum and below the bladder. The bladder stores urine. The urethra carries stored urine ou t of the body. An enlarged prostate can press on the urethra. This can make it harder to pass urine. The buildup of urine in the bladder can cause infection. Back pressure and infection may progress to bladder damage and kidney (renal) failure. What are the causes? This condition is part of the normal aging process. However, not all men develop problems from thiscondition. If the prostate enlarges away from the urethra, urine flow will not be blocked. If it enlarges toward the urethra and compresses it, there will be problems passing urine. What increases the risk? This condition is more likely to develop in men older than 50 years. What are the signs or symptoms? Symptoms of this condition include: Getting up often during the night to urinate. Needing to urinate frequently during the day. Difficulty starting urine flow. Decrease in size and strength of your urine stream. Leaking (dribbling) after urinating. Inability to pass urine. This needs immediate treatment. Inability to completely empty your bladder. Pain when you pass urine. This is more common if there is also an infection. Urinary tract infection (UTI). How is this diagnosed? This condition is diagnosed based on your medical history, a physical exam, and your symptoms. Tests will also be done, such as: A post-void bladder scan. This measures any amount of urine that may remain in your bladder after you finish urinating. A digital rectal exam. In a rectal exam, your health care provider checks your prostate by putting a lubricated, gloved finger into your rectum to feel the back of your prostate gland. This exam detects the size of your gland and any abnormal lumps or growths. An exam of your urine (urinalysis). A prostate specific antigen (PSA) screening. This is a blood test used to screen for prostate cancer. An ultrasound. This test uses sound waves to electronically produce a picture of your prostate gland. Your health care provider may refer you to a specialist in kidney and prostate diseases (urologist). How is this treated? Once symptoms begin, your health care provider will monitor your condition (active surveillance or watchful waiting). Treatment for this condition will depend on the severity of your condition. Treatment may include: Observation and yearly exams. This may be the only treatment needed if your condition and symptoms are mild. Medicines to relieve your symptoms, including: ?Medicines to shrink the prostate. ?Medicines to relax the muscle of the prostate. Surgery in severe cases. Surgery may include: ?Prostatectomy. In this procedure, the prostate tissue is removed completely through an open incision or with a laparoscope or robotics. ?Transurethral resection of the prostate (TURP). In this procedure, a tool is inserted through the opening at the tip of the penis (urethra). It is used to cut away tissue of the inner core of the prostate. The pieces are removed through the same opening of the penis. This removes the blockage. ?Transurethral incision (TUIP). In this procedure, small cuts are made in the prostate. This lessens the prostate's pressure on the urethra. ?Transurethral microwave thermotherapy (TUMT). This procedure uses microwaves to create heat. The heat destroys and removes a small amount of prostate tissue. ?Transurethral needle ablation (TUNA). This procedure uses radio frequencies to destroy and remove a small amount of prostate tissue. ?Interstitial laser coagulation (ILC). This procedure uses a laser to destroy and remove a small amount of prostate tissue. ?Transurethral electrovaporization (TUVP). This procedure uses electrodes to destroy and remove a small amount of prostate tissue. ?Prostatic urethral lift. This procedure inserts an implant to push the lobes of the prostate away from the urethra. Follow these instructions at home: Take oieo-heq-htcgpot and prescription medicines only as told by your health care provider. Monitor your symptoms for any changes. Contact your health care provider with any changes. Avoid drinking large amounts of liquid before going to bed or out in public. Avoid or reduce how much caffeine or alcohol you drink. Give yourself time when you urinate. Keep all follow-up visits. This is important. Contact a health care provider if: You have unexplained back pain. Your symptoms do not get better with treatment. You develop side effects from the medicine you are taking. Your urine becomes very dark or has a bad smell. Your lower abdomen becomes distended and you have trouble passing urine. Get help right away if: You have a fever or chills. You suddenly cannot urinate. You feel light-headed or very dizzy, or you faint. There are large amounts of blood or clots in your urine. Your urinary problems become hard to manage. You develop moderate to severe low back or flank pain. The flank is the side of your body between the ribs and the hip. These symptoms may be an emergency. Get help right away. Call 911. Do not wait to see if the symptoms will go away. Do not drive yourself to the hospital. Summary Benign prostatic hyperplasia (BPH) is an enlarged prostate that is caused by the normal aging process. It is not caused by cancer. An enlarged prostate can press on the urethra. This can make it hard to pass urine. This condition is more likely to develop in men older than 50 years. Get help right away if you suddenly cannot urinate. This information is not intended to replace advice given to you by your health care provider. Make sure you discuss any questions you have with your health care provider. Document Revised: 09/07/2021 Document Reviewed: 09/07/2021 [employer] Patient Education 2022 [employer]. Follow Up Care 05/14/2023 10:12:12 With:ELSIE CASTANON PA-C, URL Address: [address] [place] [id number] [phone] When: Unknown Comments:1 yr w/ PSA [facility] 05-28-2024 Evaluation + Plan note Diagnostic Tests Pending * PSA Total 07/31/23 [facility] 05-14-2024 Telephone encounter Note* Telephone Encounter - Elsie Mota - 07/17/2023 1:36 PM EDT Spoke w pts, sister, pt in [facility] unable to take calls. Appts canceled. [facility] Work Phone: 1(147) 480-397705-14-2024 Miscellaneous Notes* Telephone Encounter - Elsie Mota - 07/17/2023 1:36 PM EDT Spoke w pts, sister, pt in [facility] unable to take calls. Appts canceled. * Telephone Encounter - Anna Christine RN - 07/17/2023 12:43 PM EDT Reviewed chart and had PA review as well to see if patient scheduled correctly with [facility]. Patient needs scheduled with GI and not General Surgery for SBO documented in this encounterAcm[facility] System05-14-2024 Telephone encounter Note * Telephone Encounter - Anna Christine RN - 07/17/2023 12:43 PM EDT Reviewed chart and had PA review as well to see if patient scheduled correctly with [facility]. Patient needs scheduled with GI and not General Surgery for SBO [facility] Work Phone: 1(619) 802-875204-19-2024 History of Present illness Narrative* Azalia Burciaga RN - 06/22/2023 11:57 AM EDT Pt discharged to [facility] in stable condition with belongings Discharge instructions given Pt denies having any further questions at this time Locked up home medication(s)/personal items given to patient at discharge Patient/family state they have everything they were admitted with. * Joce Mendoza MD - 06/22/2023 8:36 AM EDT Subjective Comfortable in bed. Denies abdominal pain. Per nursing did tolerate diet last night. Per documentation he did have bowel movement after the Gastrografin. Objective Alert Chest symmetric excursion Abdomen soft and nontender Extremities no palpable deformity Assessment and plan Recurrent partial small bowel obstruction. Would defer exploration as he has had multiple explorations although they have been years ago. If he has 4 episodes in a year or obviously if he has a complete bowel obstruction then would proceed with surgery. Otherwise nonoperative management is best. Okay to discharge back to [facility] when okay with all. * Shawnee Noyola RN - 06/22/2023 5:10 AM EDT End Of Shift Note [facility] Summary of shift: Patient came in with abdominal distention and nausea/vomiting. He had a recent admission earlier this month for similar symptoms that had resolved. General surgery performed a smallbowel follow-through and contrast passed through dilated loops of small bowel and into colon in RUQby four hours. Patient is oriented to self, place, situation, disoriented to time. Takes pills whole with water, larger pills cut in half. Patient to return to [facility] in [place] on a low fiber diet for two weeks. Patient has discharge order in but stayed another night because there was no one available at the [facility] in [place]. Contact Berna Vaughan ([phone]) to arrange transport back to [facility] in [place]. Susan Smith is patient's sister and legal guardian. JOYCE still needing physician signature prior todeparture. Vitals: Vitals: 06/21/23 0758 06/21/23 1116 06/21/23 1528 06/21/232002 BP: 101/79 119/81 114/71 118/74 Pulse: 80 82 (!) 101 97 Resp: Temp: 98.2 F (36.8 C) 97.7 F (36.5 C) 97.9 F (36.6 C) 99 F (37.2 C) TempSrc: Axillary Oral Oral SpO2: 96% 95% 95% 94% Weight: Height: I&O: No intake or output data in the 24 hours ending 06/22/23 0627 Resp Status: Room air Ventilator Settings: / / / Critical Care IV infusions: sodium chloride LDA: Peripheral IV 06/20/23 Left Antecubital (Active) Number of days: 1 * Jen Gaitan - 06/21/2023 8:42 PM EDT [facility] CARE DEPARTMENT [facility] PROGRESS NOTE Room # - Name: Amol Taylor Bahai: Unknown Reason for visit: Routine I visited the patient. Admit Date & Time: 06/20/2023 10:20 PM Assessment: Amol Taylor is a 68 y.o. male in the hospital because he has medical concern. Upon entering the room patient at rest in bed and watching TV. Intervention: I introduced myself and my title as farm mechanic I offered space for patient to express feelings, needs, and concerns and provided a ministry presence. Men'S Basketball Coach had met patient on previous stay and offered companionship and emotional support. Outcome: Patient at rest. Plan: Chaplains will remain available to offer spiritual and emotional support as needed. . Spiritual Care Department [facility] 06/21/232036 Encounter Summary Service Provided For: Patient Referral/Consult From: [facility] Home care staff;Family members Last Encounter 06/21/23 Complexity of Encounter Low Begin Time 1630 End Time 1640 Total Time Calculated 10 min Spiritual/Emotional needs Type Spiritual Support Assessment/Intervention/Outcome Assessment Calm;Compromised coping;Impaired resilience Intervention Nurtured Hope;Sustaining Presence/Ministry of presence Outcome Comfort;Connection/Belonging;Receptive * Belle Malave RN - 06/21/2023 6:40 PM EDT Discharge was written by physician. Called Berna with number provided for cloth picker. No answer. Message left. * Raeann Rodriguez MD - 06/21/2023 6:21 PM EDT Images from the original note were not included. [facility] Office: [phone] Braydon Isbell DO, Eliazar Zuñiga DO, Carmen Kern DO, Bolivar Valdovinos DO, Evelyn Mitchell MD, Rita Pope MD, Tammy Cox MD, Hannah Mata MD, Dimas Fuentes MD, Vasyl Stanley MD, Paresh Baker DO, Reva Galindo MD, Mark Coleman DO, Rochelle Almanza MD, Aron Serna MD, Irwin Isbell DO, Livia Andino MD, Aman Hester DO, Kiarra Plasencia MD, Abby Arizmendi MD, MD Mason, Kennedi Spicer MD, Houston Frye MD, Elder Scott MD, Christofer Spencer MD, Yana Munoz DO, Shwetha Qureshi MD, Domenico Rae MD, Dorota Escobar, PATTERN PAINTER, Leonie Murillo, PATTERN PAINTER, Reva Vaughan, PATTERN PAINTER, Beau Mccoy, PATTERN PAINTER, Melany Cormier, DNP, Simran Villa, PATTERN PAINTER, Maureen Williamson, PATTERN PAINTER, Gloria Faust, PATTERN PAINTER, Toshia Cho, PATTERN PAINTER, Hattie Taylor, PATTERN PAINTER, Daquan Donnelly PA-C, Corinne Stanton, PROBE OPERATOR, Manda Powell, PATTERN PAINTER, Carleen Agarwal, PATTERN PAINTER [facility] IN-PATIENT SERVICE [facility] Progress Note 06/21/2023 6:21 PM Name: Amol Taylor Acct: [id number] Room: IP Day: 1 Admit Date: 06/20/2023 10:20 PM PCP: Carson Dior MD Code Status: Full Code Subjective: Patient seen and examined, underwent small bowel follow-through this morning. Remained afebrile, vitals within normal range. NG was placed as per general surgery recommendations. Lab work reviewed. Discussed with RN to give him dinner orally and monitor if he is able to tolerate well. Medications: Allergies: Allergies Allergen Reactions Penicillins Hives, Shortness Of Breath and Swelling Sodium Hypochlorite Hives and Itching Clindamycin Rash Current Meds: Scheduled Meds: finasteride 5 mg Oral Nightly lacosamide 150 mg Oral BID lamoTRIgine 400 mg Oral QAM lamoTRIgine 600 mg Oral Nightly levETIRAcetam 2,000 mg Oral Nightly levETIRAcetam 1,500 mg Oral Daily linaclotide 145 mcg Oral QAM AC meclizine 25 mg Oral Daily oxyBUTYnin 10 mg Oral Daily pantoprazole 40 mg Oral QAM AC primidone 250 mg Oral QAM primidone 375 mg Oral Nightly sodium chloride flush 5-40 mL IntraVENous 2 times per day enoxaparin 40 mg SubCUTAneous Daily Continuous Infusions: sodium chloride PRN Meds: albuterol sulfate HFA, diazePAM, hydrOXYzine HCl, diatrizoate meglumine-sodium, sodium chloride flush, sodium chloride, potassium chloride OR potassium alternative oral replacement OR potassium chloride, magnesium sulfate, ondansetron OR ondansetron, polyethylene glycol, acetam inophen OR acetaminophen Data: Vitals: BP 114/71 Pulse (!) 101 Temp 97.9 F (36.6 C) (Oral) Resp 18 Ht 1.778 m (5' 10 ) Wt 72.2 kg (159 lb 3.2 oz) SpO2 95% BMI 22.84 kg/m Temp (24hrs), Av.1 F (36.7 C), Min:97.7 F (36.5 C), Max:98.6 F (37 C) No results for input(s): POCGLU in the last 72 hours. I/O (24Hr): No intake or output data in the 24 hours ending 06/21/23 1821 Labs: Hematology: Recent Labs 06/21/23 0545 WBC 10.0 RBC 4.04* HGB 13.2 HCT 42.6 MCV 105.4* MCH 32.7 MCHC 31.0 RDW 12.7 PLT 289 MPV 9.3 Chemistry: Recent Labs 06/21/23 0545 NA 145* K 4.3 CL 110* CO2 21 GLUCOSE 95 BUN 30* CREATININE 0.9 ANIONGAP 14 LABGLOM >90 CALCIUM 9.7 PHOS 4.1 Recent Labs 06/21/23 0545 PROT 7.7 AST 16 ALT 17 ALKPHOS 133* BILITOT 0.3 ABG:No results found for: POCPH , PHART , PH , POCPCO2 , RTO0LBB , PCO2 , POCPO2 , PO2ART , PO2 , POCHCO3 , OEH6YOP , HCO3 , NBEA , PBEA , BEART , BE , THGBART , THB , VSY1BOM , RGLW1SFY , H9RWPZSH , O2SAT , FIO2 Lab Results Component Value Date/Time SPECIAL 6ML LFOOT 06/11/2023 11:50 AM Lab Results Component Value Date/Time CULTURE NO SIGNIFICANT GROWTH 06/11/2023 03:28 PM Radiology: FL SMALL BOWEL FOLLOW THROUGH ONLY Result Date: 06/21/2023 Contrast passage through dilated loops of small bowel and into the colon in the right upper quadrant by 4 hours. Physical Examination: General appearance: alert, cooperative and no distress, NG in place. Mental Status: oriented to person, place and time and normal affect Lungs: clear to auscultation bilaterally, normal effort Heart: regular rate and rhythm, no murmur Abdomen: soft, nontender, nondistended, normal bowel sounds, no masses, hepatomegaly, splenomegaly Extremities: no edema, redness, tenderness in the calves Skin: no gross lesions, rashes, induration Assessment: Hospital Problems Last Modified POA * (Principal) Small bowel obstruction (HCC) 06/20/2023 Yes SBO (small bowel obstruction) (HCC) 06/20/2023 Yes Plan: SBO-recurrent. S/p small bowel follow-through suggestive of passage of contrast through dilated loops of small bowel into the colon. Ruling out SBO. NG tube for decompression. General surgery on board, will take out NG tube. General surgery okay with resuming diet. Epileptic seizure disorder-continue previous seizure meds. Patient takes Lamictal, Keppra, Vimpat, primidone Intractable nausea and vomiting-continue antiemetics as needed. Advance diet as tolerated. Anticipate discharge in 24 hrs. If he tolerates p.o. diet and okay with general surgery. Medical Decision Making: Khadijah Rodriguez MD 06/21/2023 6:21 PM * Yasmani Kerns RN - 06/21/2023 6:07 PM EDT End Of Shift Note [facility] Summary of shift: Pt has been calm and cooperative. Compliant with meds and tx. Denied pain or further need. Call light in reach. Checked on for safety. Vitals: Vitals: 06/20/23 2210 06/21/23 0758 06/21/23 1116 06/21/23 1528 BP: 139/80 101/79 119/81 114/71 Pulse: 96 80 82 (!) 101 Resp: Temp: 98.6 F (37 C) 98.2 F (36.8 C) 97.7 F (36.5 C) 97.9 F (36.6 C) TempSrc: Oral Axillary Oral SpO2: 93% 96% 95% 95% Weight: 72.2 kg (159 lb 3.2 oz) Height: 1.778 m (5' 10 ) I&O: No intake or output data in the 24 hours ending 06/21/23 180 Resp Status: RA Ventilator Settings: / / / Critical Care IV infusions: sodium chloride LDA: Peripheral IV 06/20/23 Left Antecubital (Active) Number of days: 0 NG/OG/NJ/NE Tube Nasogastric Right nostril (Active) Number of days: 0 * Aurora Amezcua - 06/21/2023 3:00 PM EDT Occupational Therapy Facility/Department: [facility] Occupational Therapy Initial Assessment Name: Amol Taylor : 1955 Date of Service: 06/21/2023 Discharge Recommendations: Patient would benefit from continued therapy after discharge. Pt currently functioning below baseline. Recommend daily inpatient skilled therapy at time of discharge to maximize watermaster outcomes and prevent re-admission. Please refer to AM-PAC score for current level of function. ARA Gruber reports patient is medically stable for therapy treatment this date. Chart reviewed prior to treatment and patient is agreeable for therapy. All lines intact and patient positioned comfortably at end of treatment. All patient needs addressed prior to ending therapy session. OT Equipment Recommendations Equipment Needed: (Continue to assess) H&P per chart: 68-year-old male with a past medical history of MR, seizure disorder, and recurrent SBO presents tot emergency department for intractable nausea and vomiting and abdominal pain. Patient was recently discharged on June 13 for similar presentation requiring general surgery consultation. Patient is from a [facility]. Patient has history of SBO requiring bowel resection in the past. He also has ahistory of seizures on several medications including vagus nerve stimulator. Patient denies chest pain, fevers, sick contacts, or recent travel. Patient Diagnosis(es): There were no encounter diagnoses. Past Medical History: has a past medical history of Arthritis, BPH (benign prostatic hyperplasia), Dysphagia, GERD (gastroesophageal reflux disease), Hearing loss, HLD (hyperlipidemia), Insomnia, MR (mental retardation), Periorbital cellulitis, SBO (small bowel obstruction) (HCC), Seizures (HCC), Ve ntral hernia, and Vitamin D deficiency. Past Surgical History: has a past surgical history that includes Abdomen surgery (2012, 2013); laparoscopy (10/19/13); laparotomy (10/19/13); cast application (Left); Hydrocele surgery (10/2015); Vagusnerve stimulator insertion; and Vagus nerve stimulator insertion (12/14/2015). Assessment Performance deficits / Impairments: Decreased functional mobility ;Decreased endurance;Decreased ADL status;Decreased coordination;Decreased posture;Decreased ROM;Decreased balance;Decreased strength;Decreased safe awareness;Decreased cognition;Decreased fine motor control;Decreased high-level IADLs Assessment: Patient's current performance limited d/t cognition, activity tolerance, strength. Unsure of patient's prior level of function, has no family member or caregiver present to verify, however patient reports he typically transfers to wheelchair with one assist and completes UB ADL's with SUP. Patient requires MaxAx2 for standing at EOB; high fall risk. Skilled OT services indicated to improve strength, balance, activity tolerance, as well as I/safety awareness. Prognosis: Good Decision Making: High Complexity REQUIRES OT FOLLOW-UP: Yes Activity Tolerance Activity Tolerance: Treatment limited secondary to decreased cognition Plan Occupational Therapy Plan Times Per Week: 4-5x/week Current Treatment Recommendations: Strengthening, ROM, Functional mobility training, Balance training, Endurance training, Wheelchair mobility training, Safety education & training, Patient/Caregiver education & training, Equipment evaluation, education, & procurement, Positioning, Self-Care / ADL Restrictions Restrictions/Precautions Restrictions/Precautions: Fall Risk, Seizure, Bed Alarm, NPO Position Activity Restriction Other position/activity restrictions: NG Tube for suction; L UE IV; Seizure precautions; Patient IMPULSIVE; GAIT BELT; Up with assist Subjective General Chart Reviewed: Yes Patient assessed for rehabilitation services?: Yes Additional Pertinent Hx: Arthritis, Gerd, dysphagia Family / Caregiver Present: No Subjective Subjective: Upon entry, patient was lying in bed with HOB elevated. Patient was agreeable to therapy session. Patient reported abdominal pain has improved and feeling ok at time of eval. Social/Functional History Social/Functional History Lives With: Other (comment) Type of Home: (Correction) Home Layout: One level Home Access: Level entry Has the patient had two or more falls in the past year or any fall with injury in the past year?: No (Questionable reliability. Patient reports no falls.) ADL Assistance: Needs assistance (Indep with eating; Assist with dressing and laundry) Homemaking Assistance: Needs assistance ( sometimes I cook my meals and sometimes I dont ;) Ambulation Assistance: Needs assistance (Patient expressing he ambulates and uses w/c.) Transfer Assistance: Needs assistance Additional Comments: Questionable reliability of Social/Functional history. Patient is a poor historian. Unable to obtain clear history on PLOF Objective Observation/Palpation Posture: Fair Observation: NG tube clamped, speech difficult to understand, patient moves impulsively, hx of MRDD, hypermobile joints Safety Devices Type of Devices: All fall risk precautions in place;Bed alarm in place;Call light within reach;Gaitbelt;Patient at risk for falls;Left in bed;Nurse notified Restraints Restraints Initially in Place: No Gross Assessment AROM: Within functional limits Strength: Generally decreased, functional (3+/5 BUE, however unsure of accuracy patient had troublefollowing commands during MMT) Tone: Abnormal Sensation: Intact (Sensation appears intact for light touch; during sensation testing patient at times did not respond to stimulus on foot however unsure if related to decreased command following during session) ADL Feeding: NPO Grooming: Minimal assistance UE Bathing: Moderate assistance;Maximum assistance LE Bathing: Dependent/Total UE Dressing: Moderate assistance;Maximum assistance LE Dressing: Dependent/Total LE Dressing Skilled Clinical Factors: DEP for brief change at supine level, observed patient reaching down to adjust sock in supine at session end Toileting: Dependent/Total Toileting Skilled Clinical Factors: Toileting task completed at supine level, patient incontinent of bowels, total assist needed to change brief Functional Mobility: Unable to assess (Comment) Functional Mobility Skilled Clinical Factors: Not assessed this session, per review of chart patient appears to function at wheelchair level Additional Comments: All ADL's limited d/t cognition, weakness, and poor activity tolerance. Patient needed 2 staff assist for safety during bed mobility, transfers, and tolieting tasks. Skin Care: Bath wipes;Protective barrier Bed mobility Rolling to Left: Moderate assistance Rolling to Right: Moderate assistance Supine to Sit: Moderate assistance;2 Person assistance Sit to Supine: Minimal assistance;Moderate assistance;2 Person assistance Bed Mobility Comments: Patient needed Min-ModAx2 overall for sup<>sit transfers, significant cueing for sequencing and task completion. Patient appeared to have trouble following commands at times, however, moved impulsively when choosing to follow commands. Patient needed ModAx1 to roll in bed with max cueing. Transfers Sit to stand: Maximum assistance;2 Person assistance Stand to sit: 2 Person assistance;Maximum assistance Transfer Comments: Patient needing MaxAx2 and hand held assist to stand at EOB d/t heavy posterior lean and was unable to correct. Patient demo'd poor standing tolerance and impulsively sat to EOB. Vision Vision: (unknown. Patient is a questionable historian and did not answer vision question.) Hearing Hearing: Within functional limits Cognition Overall Cognitive Status: Exceptions Arousal/Alertness: Delayed responses to stimuli;Appropriate responses to stimuli Attention Span: Attends with cues to redirect Memory: Appears intact Safety Judgement: Decreased awareness of need for assistance;Decreased awareness of need for safety Problem Solving: Assistance required to generate solutions;Assistance required to implement solutions Initiation: Requires cues for all Sequencing: Requires cues for all Cognition Comment: Intermittently; patient required questions repeated. Patient cognition/behaviorsa barrier to therapy progression Orientation Orientation Level: Oriented to place;Oriented to person Education Education Given To: Patient Education Provided: Role of Therapy;Plan of Care;Transfer Training;ADL Adaptive Strategies;Fall Prevention Strategies Education Method: Verbal Barriers to Learning: Cognition Education Outcome: Continued education needed AM-PAC - ADL AM-PAC Daily Activity - Inpatient How much help is needed for putting on and taking off regular lower body clothing?: Total How much help is needed for bathing (which includes washing, rinsing, drying)?: Total How much help is needed for toileting (which includes using toilet, bedpan, or urinal)?: Total How much help is needed for putting on and taking off regular upper body clothing?: A Lot How much help is needed for taking care of personal grooming?: A Little How much help for eating meals?: A Little AM-[facility] Inpatient Daily Activity Raw Score: 11 AM-[facility] Inpatient ADL T-Scale Score : 29.04 ADL Inpatient CMS 0-100% Score: 70.42 ADL Inpatient [facility] G-Code Modifier : CL Goals Short Term Goals Time Frame for Short Term Goals: By discharge, Short Term Goal 1: Patient will demonstrate ADL transfers to ModAx1 with AD/DME as needed with goodsafety/pacing for ADL completion. Short Term Goal 2: Patient will demonstrate bed mobility tasks with use of rail as needed to [id number] good safety. Short Term Goal 3: Patient will demonstrate Ruma with UB ADL's and Mod-MaxAx1 with LB ADL's with AE/AD as needed with good safety/pacing. Short Term Goal 4: Patient will demonstrate improved tolerance for sitting at EOB with SUP to > 10 mins while engaging in functional tasks. Short Term Goal 5: Caregiver will demonstrate and verb good understanding of education provided on fall prevention techs, equipment needs, BUE HEP, pressure relief, and d/c recommendations. Display Associate Goals Display Associate Goal 1: Patient will demonstrate tolerance for reassessment of functional mobility tasks in order to add goal to OTPOC as appropriate. Patient Goals Patient goals : Not stated by patient d/t cognition Therapy Time Individual Concurrent Group Co-treatment Time In 1343 Time Out 1413 (+10 chart review) Minutes 30 + 10 = 40 Treatment time: 24 minutes Co-treatment with PT warranted secondary to decreased safety and independence requiring 2 skilled therapy professionals to address individual discipline's goals. OT addressing preparation for ADL transfer, sitting/activity tolerance, fall prevention, ability to sequence and follow directions, bed mobility tech, and functional UE strength. ETHEL LAZARO * Kathy Elliott, PT - 06/21/2023 2:28 PM EDT Physical Therapy Facility/Department: [facility] Physical Therapy Initial Assessment Name: Amol Taylor : 1955 Date of Service: 06/21/2023 Per H&P:68 y.o. Non- / non male who presents with No chief complaint on file. and is admitted to the hospital for the management of Small bowel obstruction (HCC). 68-year-old male with a past medical history of MR, seizure disorder, and recurrent SBO presents tot emergency department for intractable nausea and vomiting and abdominal pain. Patient was recently discharged on June 13 for similar presentation requiring general surgery consultation. Patient is from a [facility]. Patient has history of SBO requiring bowel resection in the past. He also has ahistory of seizures on several medications including vagus nerve stimulator. Patient denies chest pain, fevers, sick contacts, or recent travel. ARA Gruber reports patient is medically stable for therapy treatment this date. Chart reviewed prior to treatment and patient is agreeable for therapy. All lines intact and patient positioned comfortably at end of treatment. All patient needs addressed prior to ending therapy session. Discharge Recommendations: Patient would benefit from continued therapy after discharge Pt currently functioning below baseline. Recommend daily inpatient skilled therapy at time of discharge to maximize alf outcomes and prevent re- admission. Please refer to AM-PAC score for current level of function. PT Equipment Recommendations Equipment Needed: No Patient Diagnosis(es): There were no encounter diagnoses. Past Medical History: has a past medical history of Arthritis, BPH (benign prostatic hyperplasia), Dysphagia, GERD (gastroesophageal reflux disease), Hearing loss, HLD (hyperlipidemia), Insomnia, MR (mental retardation), Periorbital cellulitis, SBO (small bowel obstruction) (HCC), Seizures (HCC), Ve ntral hernia, and Vitamin D deficiency. Past Surgical History: has a past surgical history that includes Abdomen surgery (2012, 2013); laparoscopy (10/19/13); laparotomy (10/19/13); cast application (Left); Hydrocele surgery (10/2015); Vagusnerve stimulator insertion; and Vagus nerve stimulator insertion (12/14/2015). Assessment Body Structures, Functions, Activity Limitations Requiring Skilled Therapeutic Intervention: Decreased functional mobility ;Decreased body mechanics;Decreased tolerance to work activity;Decreased balance;Decreased cognition;Decreased safe awareness;Decreased strength;Decreased posture Assessment: 68 y/o male referred to PT with PMH including MRDD. Patient cognition and behaviors a barrier to therapy progression. Unknown PLOF due to patient being questionable historian. Patient demonstrating rolling with mod A; Supine<>sit with mod A x2; and STS at EOB with CLINICAL PRODUCT SPECIALIST requiring max A x2. Patient is a high risk for falls and requires 2 person assist with functional mobility. Therapy Prognosis: Good Decision Making: Medium Complexity Requires PT Follow-Up: Yes Activity Tolerance Activity Tolerance: Treatment limited secondary to decreased cognition;Treatment limited secondary to agitation Plan Physical Therapy Plan General Plan: 5-7 times per week Current Treatment Recommendations: Strengthening, Balance training, Functional mobility training, Transfer training, Home exercise program, Patient/Caregiver education & training, Safety education & training, Therapeutic activities Safety Devices Type of Devices: All fall risk precautions in place, Bed alarm in place, Call light within reach, Gait belt, Patient at risk for falls, Left in bed, Nurse notified Restraints Restraints Initially in Place: No Restrictions Restrictions/Precautions Restrictions/Precautions: Fall Risk, Seizure, Bed Alarm, NPO Position Activity Restriction Other position/activity restrictions: NG Tube for suction; L UE IV; Seizure precautions; Patient IMPULSIVE; GAIT BELT; Up with assist Subjective General Patient assessed for rehabilitation services?: Yes Additional Pertinent Hx: MRDD Family / Caregiver Present: No Subjective Subjective: Pateint supine in bed with HOB elevated. ARA khanna patient for PT. Social/Functional History Social/Functional History Lives With: Other (comment) Type of Home: (Correction) Home Layout: One level Home Access: Level entry Has the patient had two or more falls in the past year or any fall with injury in the past year?: No (Questionable reliability. Patient reports no falls.) ADL Assistance: Needs assistance (Indep with eating; Assist with dressing and laundry) Homemaking Assistance: Needs assistance ( sometimes I cook my meals and sometimes I dont ;) Ambulation Assistance: Needs assistance (Patient expressing he ambulates and uses w/c.) Transfer Assistance: Needs assistance Additional Comments: Questionable reliability of Social/Functional history. Patient is a poor historian. Unable to obtain clear history on PLOF Vision/Hearing Vision Vision: (unknown. Patient is a questionable historian and did not answer vision question.) Cognition Orientation Orientation Level: Oriented to place;Oriented to person Cognition Overall Cognitive Status: Exceptions Arousal/Alertness: Delayed responses to stimuli;Appropriate responses to stimuli Attention Span: Attends with cues to redirect Memory: Appears intact Safety Judgement: Decreased awareness of need for assistance;Decreased awareness of need for safety Problem Solving: Assistance required to generate solutions;Assistance required to implement solutions Initiation: Requires cues for all Sequencing: Requires cues for all Cognition Comment: Intermittently; patient required questions repeated. Patient cognition/behaviorsa barrier to therapy progression Objective Observation/Palpation Observation: NG tube clamped, speech difficult to understand, patient moves impulsively, hx of MRDD, hypermobile joints Gross Assessment AROM: Generally decreased, functional Strength: Generally decreased, functional AROM RLE (degrees) RLE AROM: WFL AROM LLE (degrees) LLE AROM : WFL AROM RUE (degrees) RUE General AROM: See OT note AROM LUE (degrees) LUE General AROM: See OT note Strength RLE Comment: Difficulty following commands for MMT: demonstrates functional strength Strength LLE Comment: Difficulty following commands for MMT; demonstrates functional strength Strength RUE Comment: See OT note Strength LUE Comment: See OT note Bed mobility Rolling to Left: Moderate assistance (VC to reach for bedrail; and assist to achieve full sidely position) Rolling to Right: Moderate assistance (VC to reach for bedrail; and assist to achieve full sidely position) Supine to Sit: 2 Person assistance;Moderate assistance Sit to Supine: Moderate assistance;2 Person assistance (During stand at EOB; patient abruptly sat down and attempted to return to lying in supine requiring mod A x2. Poor Safety awareness) Bed Mobility Comments: Supine to sit EOB (patient behaviors/cognition a barrier); Max Cues for sequencing to reach for bedrail and advance LE to EOB; max A to advance LE to EOB; Transfers Sit to Stand: Maximum Assistance;2 Person Assistance (From EOB with CLINICAL PRODUCT SPECIALIST) Stand to Sit: Maximum Assistance;2 Person Assistance Comment: Severe posterior lean with immediate standing balance; VC to shift weight anterior and to promote hip and trunk ext; no carryover. Patient abruptly sat down on EOB and patient preferred to return to supine. Ambulation Comments: Unsafe to attempt gait due to balance deficits requiring assist x2. PT to complete Re-Eval for gait when appropriate. Static Sitting Balance Exercises: Sitting balance: CGA at EOB Static Standing Balance Exercises: Stood with CLINICAL PRODUCT SPECIALIST for 20 sec.max A x2 with posterior lean; max cues AM-PAC - Mobility AM-PAC Basic Mobility - Inpatient How much help is needed turning from your back to your side while in a flat bed without using bedrails?: A Lot How much help is needed moving from lying on your back to sitting on the side of a flat bed withoutusing bedrails?: A Lot How much help is needed moving to and from a bed to a chair?: A Lot How much help is needed standing up from a chair using your arms?: A Lot How much help is needed walking in hospital room?: Total How much help is needed climbing 3-5 steps with a railing?: Total AM-[facility] Inpatient Mobility Raw Score : 10 AM-[facility] Inpatient T-Scale Score : 32.29 Mobility Inpatient CMS 0-100% Score: 76.75 Mobility Inpatient CMS G-Code Modifier : CL Goals Short Term Goals Time Frame for Short Term Goals: 12 visits Short Term Goal 1: Patient will demonstrate bed mobility tasks with SUP Short Term Goal 2: Patient will demonstrate functional transfers with CGA Short Term Goal 3: Patient will demonstrate Fair standing balance in order to prepare for gait training. Short Term Goal 4: PT to Re-Eval for Gait when appropriate. Patient Goals Patient Goals : Return to PLOF Education Patient Education Education Given To: Patient Education Provided: Role of Therapy;Plan of Care Pt is at risk for skin breakdown. Pt educated on pressure relief measures. Pt reports being comfortable at end of treatment. Verbal edu provided regarding fall prevention in the areas of community safety, transportation, proper footwear and clothing, reducing risk of falls, environmental modifications, importance of exercise, consequences of falling, plan if a fall occurs ( rest and wait vs up and about ). Education Method: Verbal Barriers to Learning: Cognition Education Outcome: Continued education needed Therapy Time Individual Concurrent Group Co-treatment Time In 1343 Time Out 1411 Minutes 28 + 10 = 38 minutes Additional 10 minutes for chart review. Treatment Time: 23 minutes Co-treatment with OT warranted secondary to decreased safety and independence requiring 2 skilled therapy professionals to address individual discipline's goals. PT addressing core control in transitions with bed mobility & transfers, seated/standing posture, pressure relief, seated & standing postural alignment and breathing techniques, safety/scanning, & fall prevention in ambulation techniques. Kathy Elliott PT * Sabra Price RN - 06/20/2023 11:00 PM EDT [] Medication Reconciliation was completed and the patient's home medication list was verified. TheMed List Status has been marked Complete . The following sources were used to assist with Medication Reconciliation: [] Patient had a list of medications which was transcribed into the EHR. [] Patient provided bottles of their medications [] Home medications reviewed and confirmed with [] Contacted patient's pharmacy to confirm home medications [] Contacted patient's physician office to confirm home medications [x] Medical Records from another facility and/or Care Everywhere were reviewed OR [] There are one or more home medications that need clarification before Medication Reconciliation can be completed. The Med List Status has been marked as In Progress. To assist with Home MedicationReconciliation the following actions have been taken: [] Pharmacy medication reconciliation service requested. (Note: This can be done by sending a Perfect Serve message to [facility] Rec Pharmacist or by phoning [phone].) [] Family requested to bring medications into the hospital [] Family requested to call hospital with medication list [] Message left with physician office [] Request for medical records made to [] Other * Sabra Pirce RN - 06/20/2023 4:39 AM EDT Adm to room 2019; instructed receptionist telephone operator light; bed controls; phone; safety; medications; hospital routine/ rounding [id number] Discharge instructions* Discharge Instructions* Raeann Rodriguez MD - 06/21/2023 6:25 PM EDT Follow-up outpatient with PCP and general surgery. Patient encouraged to increase fluid intake. Continue medications as prescribed. Avoid constipation * Discharge Instr - JOYCE* Carmen Kern, DO - 06/21/2023 11:21 AM EDT Images from the original note were not included. Continuity of Care Form Patient Name: Amol Taylor : 1955 Admit date: 06/20/2023 Discharge date: 06/22/2023 Code Status Order: Full Code Advance Directives: Admitting Physician: Raeann Rodriguez MD PCP: Carson Dior MD Discharging Nurse: Azalia Burciaga Discharging Hospital Unit/Room#: Discharging Unit Emergency Contact: Extended Emergency Contact Information Primary Emergency Contact: Susan Smith [facility] Relation: Legal Guardian Secondary Emergency Contact: Eliazar [...] G40.909 SBO (small bowel obstruction) (HCC) K56.609 AFTAB (obstructive sleep apnea) G47.33 Epileptic seizures (HCC) G40.909 Intellectual disability F79 S/P placement of VNS (vagus nerve stimulation) device Z96.89 Dysphagia R13.10 Elevated international normalized ratio (INR) R79.1 Nausea and vomiting R11.2 Seizure disorder (HCC) G40.909 Seizure-like activity (HCC) R56.9 JOSÉ MIGUEL (acute kidney injury) (HCC) N17.9 Sepsis (HCC) A41.9 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 Intractable nausea and vomiting R11.2 Ileus (HCC) K56.7 Isolation/Infection: Isolation No Isolation Patient Infection Status None to display Nurse Assessment: Last Vital Signs: BP 119/81 Pulse 82 Temp 97.7 F (36.5 C) Resp 20 Ht 1.778 m (5' 10 ) Wt 72.2 kg (159 lb 3.2 oz) SpO2 95% BMI 22.84 kg/m Last documented pain score (0-10 scale): Last Weight: Wt Readings from Last 1 Encounters: 06/20/23 72.2 kg (159 lb 3.2 oz) Mental Status: alert, oriented x 3 IV Access: - None Nursing Mobility/ADLs: Walking Assisted Transfer Assisted Bathing Assisted Dressing Assisted Toileting Assisted Feeding Independent Press Loader Independent Med Delivery whole Wound Care Documentation and Therapy: Elimination: Continence: Bowel: Yes Bladder: Yes Urinary Catheter: None Colostomy/Ileostomy/Ileal Conduit: No Date of Last BM: 06/22/2023 No intake or output data in the 24 hours ending 06/21/23 1120 No intake/output data recorded. Safety Concerns: At Risk for Falls and History of Seizures Impairments/Disabilities: None Nutrition Therapy: Current Nutrition Therapy: - Oral Diet: General Routes of Feeding: Oral Liquids: No Restrictions Daily Fluid Restriction: no Last Modified Barium Swallow with Video (Video Swallowing Test): not done Treatments at the Time of Hospital Discharge: Respiratory Treatments: N/A Oxygen Therapy: is not on home oxygen therapy. Ventilator: - No ventilator support Rehab Therapies: Physical Therapy and Occupational Therapy Weight Bearing Status/Restrictions: No weight bearing restrictions Other Medical Equipment (for information only, NOT a DME order): wheelchair Other Treatments: N/A Patient's personal belongings (please select all that are sent with patient): None RN SIGNATURE: CASE MANAGEMENT/SOCIAL WORK SECTION Inpatient Status Date: 06/20/23 Readmission Risk Assessment Score: Readmission Risk Risk of Unplanned Readmission: 29 Discharging to Facility/ Agency Name: [facility] Services Available Home Health Services Address [address] [facility] [address] Contact Information [phone] Environmental Technical Officer/Staff Certified Nurse Midwife signature: PHYSICIAN SECTION Prognosis: Fair Condition at Discharge: Stable Rehab Potential (if transferring to Rehab): Fair Recommended Labs or Other Treatments After Discharge: Physician Certification: I certify the above information and transfer of Amol Taylor is necessaryfor the continuing treatment of the diagnosis listed and that he requires Home Care for greater 30 days. Update Admission H&P: No change in H&P PHYSICIAN SIGNATURE: * Attachments The following attachments cannot be sent through Care Everywhere. * Const[facility] ([place]amb[place]) [facility] History of Present illness Narrative* Andreas Herrera LSW - 06/14/2023 3:23 PM EDT Acknowledge pt discharge back to [facility] this date. SW called to [facility] and notified of pt discharge and requested transportation. [facility] called back and they are unable to transport. SW called to guardian to inform of discharge and she is unable to transport as pt cannot get in her vehicle. SW called to [facility] and they are available at 330 pm. Nursing notified of time and will do their best to get him ready. SW completed packet and placed orders in with discharge summary and AVS. SW called to [facility] and notified of pt return to [facility] and they will pull their orders from the system to resume care. Guardian notified of discharge time and way. No further discharge needs anticipa louise. Andreas MCCLELLAND 06/14/2023 * Zaria Lynn PTA - 06/14/2023 1:22 PM EDT Physical Therapy Facility/Department: [facility] Daily Treatment Note NAME: Amol Taylor : 1955 Date of Service: 06/14/2023 Discharge Recommendations: Continue to assess pending progress, 24 hour supervision or assist Patient Diagnosis(es): The primary encounter diagnosis was Ileus (HCC). A diagnosis of Partial small bowel obstruction (HCC) was also pertinent to this visit. Assessment Assessment: Pt. completed reclined seated therex ankle pumps, SLR and glute sets x15. Pt. stood at chair ~1-2 minutes for gina care and MinAx1. No LOB noted. Transfers:MinAx2. Pt. took 3-5 steps withHHAx2 and MinAx2. Pt. performed bridge x1 to fix padding on bed. Activity Tolerance: Patient limited by fatigue;Treatment limited secondary to decreased cognition Plan Physical Therapy Plan General Plan: 2 times a day 7 days a week Specific Instructions for Next Treatment: Once daily on weekends Current Treatment Recommendations: Strengthening;ROM;Balance training;Functional mobility training;Transfer training;Neuromuscular re-education;Gait training;Home exercise program;Safety education & training;Patient/Caregiver education & training;Manual;Endurance training;Therapeutic activities Restrictions Restrictions/Precautions Restrictions/Precautions: Contact Precautions, General Precautions, Seizure Subjective Subjective Subjective: Pt. in chair upon arrival, agreeable to therapy at this time Pain: denies Orientation Orientation Level: Oriented to person Objective Bed Mobility Training Bed Mobility Training: Yes Overall Level of Assistance: Minimum assistance;Assist X2 Interventions: Tactile cues;Verbal cues;Visual cues Sit to Supine: Minimum assistance;Assist X2 Transfer Training Transfer Training: Yes Overall Level of Assistance: Minimum assistance;Assist X2 Interventions: Safety awareness training;Tactile cues;Verbal cues Sit to Stand: Minimum assistance;Assist X2 Stand to Sit: Minimum assistance;Assist X2 Gait Gait Training: Yes Overall Level of Assistance: Minimum assistance;Assist X2 Distance (ft): (3-5 steps) Assistive Device: Other (comment) (HHAx2) PT Exercises Exercise Treatment: Reclined seated therex ankle pumps, SLR and glute sets x15. Safety Devices Type of Devices: All israel prominences offloaded;Patient at risk for falls;All fall risk precautions in place;Call light within reach;Nurse notified;Bed alarm in place;Left in bed Goals Short Term Goals Time Frame for Short Term Goals: 20 days Short Term Goal 1: Patient to complete all transfers with CGAx1 and no LOB to decrease fall risk. Short Term Goal 2: Patient to ambulate 10ftx2 with cane and CGAx1 with no LOB to improve mobility. Short Term Goal 3: Patient to tolerate 20-30 min of ther ex/act for improved functional strength. Short Term Goal 4: Patient to have good static sitting balance to decrease fall risk. Education Patient Education Education Given To: Patient Education Provided: Transfer Training Education Method: Verbal Barriers to Learning: Cognition Education Outcome: Continued education needed;Unable to demonstrate understanding Therapy Time Individual Concurrent Group Co-treatment Time In 1241 Time Out 1304 Minutes 23 Timed Code Treatment Minutes: 12 Minutes Zaria Lynn PTA * Salina Giles PT - 06/14/2023 10:39 AM EDT Physical Therapy Facility/Department: [facility] Physical Therapy Initial Assessment Name: Amol Taylor : 1955 Date of Service: 06/14/2023 Discharge Recommendations: Continue to assess pending progress, 24 hour supervision or assist Patient Diagnosis(es): The primary encounter diagnosis was Ileus (HCC). A diagnosis of Partial small bowel obstruction (HCC) was also pertinent to this visit. Past Medical History: has a past medical history of Arthritis, BPH (benign prostatic hyperplasia), Dysphagia, GERD (gastroesophageal reflux disease), Hearing loss, HLD (hyperlipidemia), Insomnia, MR (mental retardation), Periorbital cellulitis, SBO (small bowel obstruction) (HCC), Seizures (HCC), Ve ntral hernia, and Vitamin D deficiency. Past Surgical History: has a past surgical history that includes Abdomen surgery (2012, 2013); laparoscopy (10/19/13); laparotomy (10/19/13); cast application (Left); Hydrocele surgery (10/2015); Vagusnerve stimulator insertion; and Vagus nerve stimulator insertion (12/14/2015). Assessment Assessment: Patient is 68 year old male with dx of ileus who presents with sig hx of MRDD and seizures, decreased B LE strength, decreased functional mobility and endurance and decreased safety and balance during transfers and ambulation and would benefit from physical therapy to address all concerns and safely return to PLOF. Treatment Diagnosis: Difficulty walking Specific Instructions for Next Treatment: Once daily on weekends Therapy Prognosis: Good;Fair Decision Making: Medium Complexity Requires PT Follow-Up: Yes Activity Tolerance Activity Tolerance: Patient limited by fatigue;Treatment limited secondary to decreased cognition Plan Physical Therapy Plan General Plan: 2 times a day 7 days a week Specific Instructions for Next Treatment: Once daily on weekends Current Treatment Recommendations: Strengthening, ROM, Balance training, Functional mobility training, Transfer training, Neuromuscular re-education, Gait training, Home exercise program, Safety education & training, Patient/Caregiver education & training, Manual, Endurance training, Therapeutic activities Safety Devices Type of Devices: All israel prominences offloaded, Patient at risk for falls, All fall risk precautions in place, Left in chair, Call light within reach, Chair alarm in place, Nurse notified Restrictions Restrictions/Precautions Restrictions/Precautions: Contact Precautions, General Precautions, Seizure Subjective General Chart Reviewed: Yes Patient assessed for rehabilitation services?: Yes Response To Previous Treatment: Not applicable Family / Caregiver Present: No Referring Practitioner: Dr. Gualberto MD Referral Date : 06/13/23 Diagnosis: Ileus, K56.7 Follows Commands: Impaired Subjective Subjective: Pt follows one step commands with increased time and repetition Social/Functional History Social/Functional History Type of Home: House Home Layout: One level ADL Assistance: Needs assistance Homemaking Assistance: Needs assistance Ambulation Assistance: Needs assistance Transfer Assistance: Needs assistance Additional Comments: Per chart, patient lives in [facility]. Per automotive technology instructor, patient was receiving in home therapy services d/t recent extended stay in hospital. Per staff at [facility], patient wouldambulate a few steps with cane, transfer with gait belt. Requires assist c ADL. Vision/Hearing Vision Vision: Within Functional Limits Hearing Hearing: Within functional limits Cognition Orientation Orientation Level: Oriented to person Objective Temp: 97.7 F (36.5 C) Pulse: 60 Heart Rate Source: Monitor;Apical Respirations: 18 SpO2: 97 % O2 Device: None (Room air) BP: (!) 146/59 MAP (Calculated): 88 BP Location: Left upper arm BP Method: Automatic Gross Assessment AROM: Within functional limits Strength: Generally decreased, functional Bed mobility Supine to Sit: Moderate assistance Scooting: Moderate assistance Bed Mobility Comments: Vc's for hand placement and safe technique. Transfers Sit to Stand: Minimal Assistance;2 Person Assistance Stand to Sit: Minimal Assistance;2 Person Assistance Comment: Vc's for hand placement and safe technique, fair follow through, poor understanding Ambulation Surface: Level tile Device: Hand-Held Assist Assistance: Moderate assistance;2 Person assistance Distance: Pt amb 5ftx2 with hhax2; pt tried to sit before reaching chair, requiring maxAx2 to correct Balance Sitting - Static: Good Sitting - Dynamic: Fair Standing - Static: Fair;- Standing - Dynamic: Poor AM-PAC - Mobility AM-PAC Mobility without Stair Climbing Inpatient How much difficulty turning over in bed?: A Little How much difficulty sitting down on / standing up from a chair with arms?: A Little How much difficulty moving from lying on back to sitting on side of bed?: A Lot How much help from another person moving to and from a bed to a chair?: A Lot How much help from another person needed to walk in hospital room?: A Lot AM-PAC Inpatient Mobility without Stair Climbing Raw Score : 12 AM-PAC Inpatient without Stair Climbing T-Scale Score : 37.26 Mobility Inpatient CMS 0-100% Score: 63.03 Mobility Inpatient without Stair CMS G-Code Modifier : CL Goals Short Term Goals Time Frame for Short Term Goals: 20 days Short Term Goal 1: Patient to complete all transfers with CGAx1 and no LOB to decrease fall risk. Short Term Goal 2: Patient to ambulate 10ftx2 with cane and CGAx1 with no LOB to improve mobility. Short Term Goal 3: Patient to tolerate 20-30 min of ther ex/act for improved functional strength. Short Term Goal 4: Patient to have good static sitting balance to decrease fall risk. Education Patient Education Education Given To: Patient Education Provided: Transfer Training Education Method: Verbal Barriers to Learning: Cognition Education Outcome: Continued education needed;Unable to demonstrate understanding Therapy Time Individual Concurrent Group Co-treatment Time In 1012 Time Out 1025 Minutes 13 Timed Code Treatment Minutes: 12 Minutes Salina iGles PT, DPT * Dorota Woodson APRN - OTONIEL - 06/14/2023 6:44 AM EDT Progress Note SUBJECTIVE: Patient seen for f/u of Intractable nausea and vomiting. He resting in bed no distress. No complaints. Talkative. Nurses report several stools through the night. ROS: Constitutional: negative for fevers, and negative for chills. Respiratory: negative for shortness of breath, negative for cough, and negative for wheezing Cardiovascular: negative for chest pain, and negative for palpitations Gastrointestinal: Negative for abdominal pain, negative for nausea,positive for vomiting, positive for diarrhea, and negative for constipation All other systems were reviewed with the patient and are negative unless otherwise stated in HPI OBJECTIVE: Vitals: Vitals: 06/13/23 1830 BP: (!) 140/83 Pulse: 88 Resp: 18 Temp: 97.8 F (36.6 C) SpO2: 94% Weight - Scale: 77.7 kg (171 lb 3.2 oz) Height: 177.8 cm (5' 10 ) Weight Wt Readings from Last 3 Encounters: 06/14/23 77.7 kg (171 lb 3.2 oz) 05/06/23 72.4 kg (159 lb 9.6 oz) 04/29/23 73.3 kg (161 lb 9.6 oz) Body mass index is 24.56 kg/m . 24HR INTAKE/OUTPUT: Intake/Output Summary (Last 24 hours) at 06/14/2023 0644 Last data filed at 06/14/2023 0625 Gross per 24 hour Intake 240 ml Output 1600 ml Net -1360 ml Exam: GEN: Awake, alert and oriented to person and place only. EYES: EOMI, pupils equal NECK: Supple. No lymphadenopathy. No carotid bruit CVS: regular rate and rhythm, no audible murmur PULM: CTA, no wheezes, rales or rhonchi, no acute respiratory distress ABD: Bowels sounds normal. Abdomen is soft. No distention. No tenderness to palpation. EXT: no edema bilaterally . No calf tenderness. NEURO: Moves all extremities. Motor and sensory are grossly intact SKIN: No rashes. No skin lesions. Diagnostic Data: Complete Blood Count: Recent Labs 06/12/23 0510 06/13/23 0610 06/14/23 0530 WBC 9.1 6.4 6.9 RBC 3.25* 3.06* 3.16* HGB 10.8* 10.2* 10.6* HCT 33.1* 31.5* 31.3* MCV 101.8 102.9 99.1 MCH 33.2 33.3 33.5 MCHC 32.6 32.4 33.9 RDW 12.7 12.1 11.9 PLT 199 169 179 MPV 9.2 9.2 9.2 Last 3 Blood Glucose: Recent Labs 06/11/23 1015 06/12/23 0510 06/13/23 0610 06/14/23 0530 GLUCOSE 134* 90 81 90 Comprehensive Metabolic Profile: Recent Labs 06/12/23 0510 06/13/23 0610 06/14/23 0530 NA 142 144 140 K 3.9 4.1 3.3* CL 112* 112* 109* CO2 22 22 22 BUN 36* 20 12 CREATININE 0.9 0.7 0.6* GLUCOSE 90 81 90 CALCIUM 8.2* 8.4* 8.2* PROT 6.3* 5.7* 6.3* LABALBU 3.4* 3.3* 3.4* BILITOT 0.2* 0.2* 0.2* ALKPHOS 103 90 93 AST 9 8 10 ALT 11 8 9 Urinalysis: Lab Results Component Value Date/Time NITRU NEGATIVE 06/11/2023 03:28 PM COLORU Yellow 06/11/2023 03:28 PM PHUR 6.0 06/11/2023 03:28 PM WBCUA 0 TO 2 06/11/2023 03:28 PM RBCUA None 06/11/2023 03:28 PM MUCUS TRACE 06/11/2023 03:28 PM TRICHOMONAS NOT REPORTED 12/05/2018 06:15 AM YEAST NOT REPORTED 12/05/2018 06:15 AM BACTERIA TRACE 06/11/2023 03:28 PM SPECGRAV 1.015 06/11/2023 03:28 PM LEUKOCYTESUR NEGATIVE 06/11/2023 03:28 PM UROBILINOGEN Normal 06/11/2023 03:28 PM BILIRUBINUR NEGATIVE 06/11/2023 03:28 PM BILIRUBINUR NEGATIVE 10/31/2010 12:33 PM GLUCOSEU NEGATIVE 06/11/2023 03:28 PM GLUCOSEU NEGATIVE 10/31/2010 12:33 PM KETUA NEGATIVE 06/11/2023 03:28 PM AMORPHOUS 2+ 06/12/2022 11:10 AM HgBA1c: No results found for: LABA1C Lactic Acid: Lab Results Component Value Date/Time LACTA 0.6 06/12/2023 05:10 AM LACTA 1.3 09/02/2022 07:35 PM LACTA 1.3 06/21/2022 12:30 PM Radiology/Imaging: XR ACUTE ABD SERIES CHEST 1 VW Final Result 1. No acute cardiopulmonary process. 2. Scattered gas-filled large/small bowel loops throughout the abdomen and pelvis with several mildly distended gas-filled small bowel loops up to 4 cm. Findings may represent ileus versus partial/intermittent SBO. CT ABDOMEN PELVIS W IV CONTRAST Additional Contrast? None Final Result 1. Small bowel distension without focal transition point identified. There is also a mild amount of liquid stool in the colon. These findings are most suggestive of ileus and diarrheal process versus partial obstructing process. 2. Additional chronic and benign findings, as described. XR CHEST PORTABLE Final Result No acute airspace disease identified. FL SMALL BOWEL FOLLOW THROUGH ONLY (Results Pending) ASSESSMENT / PLAN: MEDICAL DECISION MAKING: Primary Problem(s): Intractable nausea and vomiting Differential diagnoses: SBO, ileus Condition is a chronic illness with exacerbation, progression or side effects of treatment Condition is stable Treatment plan: Consult general surgery-Notes reviewed Advance diet Monitor labs replace electrolytes PT OT Imaging no further imaging today Medications: Zofran as needed IVF Medication Monitoring / High Risk Medications: none Sepsis of unknown etiology Condition is resolved Treatment plan: Blood cultures-no growth Urine culture-no growth Monitor labs replace electrolytes PT OT Will for I/O Imaging: no further imaging studies ordered today Medications: Received 30 ml/kg bolus in ED IV fluids Stop IV Rocephin and Flagyl Seizures Condition is a chronic stable condition Treatment plan: Seizure precautions Imaging: no further imaging studies ordered today Medications: Resume Lamictal Stop IV Keppra Stop IV Vimpat Resume primidone Resume oral Keppra JOSÉ MIGUEL Condition is resolved Treatment plan: CBC, CMP Remove Will Imaging: No further imaging studies ordered today Medications: Stop IV fluids Nutrition status: mild malnutrition Dermatology Nurse Practitioner consult initiated Hospital Prophylaxis: DVT: Lovenox Stress Ulcer: PPI Disposition: Shared decision making: All test results, treatment options and disposition options were discussed with the patient today Social determinants of health that may impact management: Resides in [facility] Code status: Full Code Disposition: Discharge plan is home today MIPS Advanced Care Planning documentation: [x] I [...] Dorota Woodson APRN - OTONIEL , RAISA, PRODUCTION WOOD CRAFTSMAN-C Hospitalist Medicine 06/14/2023, 6:44 AM Associated attestation - Lyla Burciaga MD - 06/14/2023 9:21 AM EDT Images from the original note were not included. [address], [address] Attestation Patient: Amol Taylor Date of Admission: 06/11/2023 9:10 AM Hospital Day # 3 Date of Evaluation: 06/14/2023 I personally evaluated and examined the patient [id number] in conjunction with the PA/PRODUCTION WOOD CRAFTSMAN and agree with the management and dispostition of the patient. Please see the PA/PRODUCTION WOOD CRAFTSMAN's note for full details.My gee findings are: SUBJECTIVE: Patient seen for follow up of Intractable nausea and vomiting. Patient seen and examined at the bedside , no new acute events overnight and no new complains noted. He is having more conversation compared to prior. No n/v/d no abdominal pain. Notes from nursing staff and Consults had been reviewed, and the overnight progress had been checked with the nursing staff as well. OBJECTIVE: Vitals: Temp: 97.7 F (36.5 C) BP: (!) 146/59 Respirations: 18 Pulse: 60 SpO2: 97 % Weight Wt Readings from Last 3 Encounters: 06/14/23 77.7 kg (171 lb 3.2 oz) 05/06/23 72.4 kg (159 lb 9.6 oz) 04/29/23 73.3 kg (161 lb 9.6 oz) Body mass index is 24.56 kg/m . 24HR INTAKE/OUTPUT: Intake/Output Summary (Last 24 hours) at 06/14/2023 0921 Last data filed at 06/14/2023 0826 Gross per 24 hour Intake 600 ml Output 1600 ml Net -1000 ml Exam: GEN: Awake, alert and oriented [...] lesions. DATA: Complete Blood Count: Recent Labs 06/12/23 0510 06/13/23 0610 06/14/23 0530 WBC 9.1 6.4 6.9 RBC 3.25* 3.06* 3.16* HGB 10.8* 10.2* 10.6* HCT 33.1* 31.5* 31.3* MCV 101.8 102.9 99.1 RDW 12.7 12.1 11.9 PLT 199 169 179 Recent Labs 06/12/23 0510 06/13/23 0610 06/14/23 0530 NEUTROABS 6.14 4.02 4.02 LYMPHOPCT 22* 24 31 LYMPHSABS 2.02 1.55 2.13 MONOPCT 7 8 8 EOSRELPCT 3 4 3 BASOPCT 0 1 0 IMMGRAN 0 0 0 CMP: Lab Results Component Value Date GLUCOSE 90 06/14/2023 BUN 12 06/14/2023 CREATININE 0.6 (L) 06/14/2023 NA 140 06/14/2023 K 3.3 (L) 06/14/2023 CALCIUM 8.2 (L) 06/14/2023 CL 109 (H) 06/14/2023 CO2 22 06/14/2023 PROT 6.3 (L) 06/14/2023 LABALBU 3.4 (L) 06/14/2023 BILITOT 0.2 (L) 06/14/2023 ALKPHOS 93 06/14/2023 ALT 9 06/14/2023 AST 10 06/14/2023 UA: Lab Results Component Value Date COLORU Yellow 06/11/2023 SPECGRAV 1.015 06/11/2023 WBCUA 0 TO 2 06/11/2023 RBCUA None 06/11/2023 EPITHUA 0 TO 2 06/11/2023 LEUKOCYTESUR NEGATIVE 06/11/2023 GLUCOSEU NEGATIVE 06/11/2023 KETUA NEGATIVE 06/11/2023 PROTEINU NEGATIVE 06/11/2023 HGBUR NEGATIVE 06/11/2023 CASTUA NOT REPORTED 12/05/2018 CRYSTUA NOT REPORTED 12/05/2018 BACTERIA TRACE (A) 06/11/2023 YEAST NOT REPORTED 12/05/2018 Lactic Acid: Lab Results Component Value Date/Time LACTA 0.6 06/12/2023 05:10 AM LACTA 1.3 09/02/2022 07:35 PM LACTA 1.3 06/21/2022 12:30 PM High Sensitivity Troponin: Recent Labs 06/11/23 1015 TROPHS 17 Radiology/Imaging: XR ACUTE ABD SERIES CHEST 1 VW Final Result 1. No acute cardiopulmonary process. 2. Scattered gas-filled large/small bowel loops throughout the abdomen and pelvis with several mildly distended gas-filled small bowel loops up to 4 cm. Findings may represent ileus versus partial/intermittent SBO. CT ABDOMEN PELVIS W IV CONTRAST Additional Contrast? None Final Result 1. Small bowel distension without focal transition point identified. There is also a mild amount of liquid stool in the colon. These findings are most suggestive of ileus and diarrheal process versus partial obstructing process. 2. Additional chronic and benign findings, as described. XR CHEST PORTABLE Final Result No acute airspace disease identified. FL SMALL BOWEL FOLLOW THROUGH ONLY (Results Pending) ASSESSMENT: Principal Problem: Intractable nausea and vomiting Active Problems: MR (mental retardation), severe Epilepsy (HCC) JOSÉ MIGUEL (acute kidney injury) (HCC) Sepsis (HCC) Ileus (HCC) Resolved Problems: * No resolved hospital problems. * PLAN: I agree with the plan as outlined in the PRODUCTION WOOD CRAFTSMAN/PA's note Disposition: Discharge plan is pending Please note that this chart was generated using voice recognition [employer] dictation software. Although every effort was made to ensure the accuracy of this automated driller and broacher, some errors in driller and broacher may have occurred. Lyla Burciaga MD 06/14/2023 9:21 AM * Keyanna Friend RN - 06/13/2023 6:30 PM EDT Patient shift assessment and vitals completed at this time as charted. Patient assisted to use the commode x3 assist with gate belt. Patient was incontinent of stool and also had a bowel movement as well. Patient assisted back to bed. Patient states no further needs, call light is in reach, bed alarm is on, plan of care is ongoing. * Lucrecia Cabrera RN - 06/13/2023 3:32 PM EDT Staff from [facility] called for update. Condition was informed, episode at approx 1430 was described and the staff member stated that this is very typical of his postictal state. Will continue to monitor. * Lucrecia Cabrera RN - 06/13/2023 2:30 PM EDT Service Coordinator Elderly Facility entered room to find pt not acting himself, putting thumb in mouth, moaning, staring off, not answering questions appropriately. Activity lasted approx 3 minutes, placed magnet on chest, as instructed, and pt eventually came around to himself. PRN Manny IV admin as ARA Borges, stated she was told by [facility] that pt will put fingers in mouth when he is not feeling well or has upset stomach. Pt resting in bed, call light with in reach. Will continue to monitor. OTONIEL Suarez, informed of above. * Lucrecia Cabrera RN - 06/13/2023 9:30 AM EDT Pt has MRDD, is oriented to self, situation and place. Pt is calm and cooperative, wearing helmet d/t frequent seizure activity. No ssx of seizures at this time. Pt remains NPO. Assmt and VS completed as charted, see flow sheet. IV fluids continue as ordered, see MAR. Pt resting in bed, call light within reach, denies pain, denies further needs. Will continue to monitor. * Dorota Woodson APRN - CNP - 06/13/2023 7:03 AM EDT Progress Note SUBJECTIVE: Patient seen for f/u of Intractable nausea and vomiting. He resting in bed no distress. No complaints ROS: Constitutional: negative for fevers, and negative for chills. Respiratory: negative for shortness of breath, negative for cough, and negative for wheezing Cardiovascular: negative for chest pain, and negative for palpitations Gastrointestinal: positive for abdominal pain, positive for nausea,positive for vomiting, positive for diarrhea, and negative for constipation All other systems were reviewed with the patient and are negative unless otherwise stated in HPI OBJECTIVE: Vitals: Vitals: 06/12/23 1814 BP: 111/66 Pulse: 67 Resp: 21 Temp: 97.4 F (36.3 C) SpO2: 97% Weight - Scale: 77.1 kg (170 lb) (with seizure pads on bed) Height: 177.8 cm (5' 10 ) Weight Wt Readings from Last 3 Encounters: 06/13/23 77.1 kg (170 lb) 05/06/23 72.4 kg (159 lb 9.6 oz) 04/29/23 73.3 kg (161 lb 9.6 oz) Body mass index is 24.39 kg/m . 24HR INTAKE/OUTPUT: Intake/Output Summary (Last 24 hours) at 06/13/2023 07 Last data filed at 06/13/2023 0514 Gross per 24 hour Intake 88.6 ml Output 1385 ml Net -1296.4 ml Exam: GEN: Awake, alert and oriented to person and place only. EYES: EOMI, pupils equal NECK: Supple. No lymphadenopathy. No carotid bruit CVS: regular rate and rhythm, no audible murmur PULM: CTA, no wheezes, rales or rhonchi, no acute respiratory distress ABD: Bowels sounds normal. Abdomen is soft. No distention. generalized tenderness to palpation. EXT: no edema bilaterally . No calf tenderness. NEURO: Moves all extremities. Motor and sensory are grossly intact SKIN: No rashes. No skin lesions. Diagnostic Data: Complete Blood Count: Recent Labs 06/11/23 1015 06/12/23 0510 06/13/23 0610 WBC 16.7* 9.1 6.4 RBC 4.78 3.25* 3.06* HGB 16.0 10.8* 10.2* HCT 48.1 33.1* 31.5* MCV 100.6 101.8 102.9 MCH 33.5 33.2 33.3 MCHC 33.3 32.6 32.4 RDW 12.4 12.7 12.1 PLT 312 199 169 MPV 9.1 9.2 9.2 Last 3 Blood Glucose: Recent Labs 06/11/23 1015 06/12/23 0510 06/13/23 0610 GLUCOSE 134* 90 81 Comprehensive Metabolic Profile: Recent Labs 06/11/23 1015 06/12/23 0510 06/13/23 0610 NA 140 142 144 K 4.7 3.9 4.1 CL 102 112* 112* CO2 23 22 22 BUN 46* 36* 20 CREATININE 1.6* 0.9 0.7 GLUCOSE 134* 90 81 CALCIUM 10.1 8.2* 8.4* PROT 9.1* 6.3* 5.7* LABALBU 4.7 3.4* 3.3* BILITOT 0.5 0.2* 0.2* ALKPHOS 167* 103 90 AST 18 9 8 ALT 18 11 8 Urinalysis: Lab Results Component Value Date/Time NITRU NEGATIVE 06/11/2023 03:28 PM COLORU Yellow 06/11/2023 03:28 PM PHUR 6.0 06/11/2023 03:28 PM WBCUA 0 TO 2 06/11/2023 03:28 PM RBCUA None 06/11/2023 03:28 PM MUCUS TRACE 06/11/2023 03:28 PM TRICHOMONAS NOT REPORTED 12/05/2018 06:15 AM YEAST NOT REPORTED 12/05/2018 06:15 AM BACTERIA TRACE 06/11/2023 03:28 PM SPECGRAV 1.015 06/11/2023 03:28 PM LEUKOCYTESUR NEGATIVE 06/11/2023 03:28 PM UROBILINOGEN Normal 06/11/2023 03:28 PM BILIRUBINUR NEGATIVE 06/11/2023 03:28 PM BILIRUBINUR NEGATIVE 10/31/2010 12:33 PM GLUCOSEU NEGATIVE 06/11/2023 03:28 PM GLUCOSEU NEGATIVE 10/31/2010 12:33 PM KETUA NEGATIVE 06/11/2023 03:28 PM AMORPHOUS 2+ 06/12/2022 11:10 AM HgBA1c: No results found for: LABA1C Lactic Acid: Lab Results Component Value Date/Time LACTA 0.6 06/12/2023 05:10 AM LACTA 1.3 09/02/2022 07:35 PM LACTA 1.3 06/21/2022 12:30 PM Radiology/Imaging: CT ABDOMEN PELVIS W IV CONTRAST Additional Contrast? None Final Result 1. Small bowel distension without focal transition point identified. There is also a mild amount of liquid stool in the colon. These findings are most suggestive of ileus and diarrheal process versus partial obstructing process. 2. Additional chronic and benign findings, as described. XR CHEST PORTABLE Final Result No acute airspace disease identified. ASSESSMENT / PLAN: MEDICAL DECISION MAKING: Primary Problem(s): Intractable nausea and vomiting Differential diagnoses: SBO, ileus Condition is a chronic illness with exacerbation, progression or side effects of treatment Condition is stable Treatment plan: Consult general surgery-Notes reviewed N.p.o. Monitor labs replace electrolytes PT OT Imaging:Abd xray ordered today Medications: Zofran as needed IVF Medication Monitoring / High Risk Medications: none Sepsis of unknown etiology Condition is stable Treatment plan: Blood cultures-no growth Urine culture-pending Monitor labs replace electrolytes PT OT Will for I/O Imaging: no further imaging studies ordered today Medications: Received 30 ml/kg bolus in ED IV fluids Continue IV Rocephin and Flagyl Seizures Condition is a chronic stable condition Treatment plan: Seizure precautions Imaging: no further imaging studies ordered today Medications: Hold Lamictal Continue IV Keppra Continue IV Vimpat Hold primidone JOSÉ MIGUEL Condition is stable Treatment plan: CBC, CMP Imaging: No further imaging studies ordered today Medications: IV fluids Nutrition status: mild malnutrition Dermatology Nurse Practitioner consult initiated Hospital Prophylaxis: DVT: Lovenox Stress Ulcer: PPI Disposition: Shared decision making: All test results, treatment options and disposition options were discussed with the patient today Social determinants of health that may impact management: Resides in [facility] Code status: Full Code Disposition: Discharge plan is pending [facility] Advanced Care Planning documentation: [x] I have [...] record. [DOES NOT SATISFY MIPS PERFORMANCE] Dorota Salter-RAISA Acosta - OTONIEL , RAISA, PRODUCTION WOOD CRAFTSMAN-C Hospitalist Medicine 06/13/2023, 7:03 AM Associated attestation - Lyla Burciaga MD - 06/13/2023 4:46 PM EDT Images from the original note were not included. [address], [place], [place], [address] Attestation Patient: Amol Taylor Date of Admission: 06/11/2023 9:10 AM Hospital Day # 2 Date of Evaluation: 06/13/2023 I personally evaluated and examined the patient [id number] in conjunction with the PA/PRODUCTION WOOD CRAFTSMAN and agree with the management and dispostition of the patient. Please see the PA/PRODUCTION WOOD CRAFTSMAN's note for full details.My gee findings are: SUBJECTIVE: Patient seen for follow up of Intractable nausea and vomiting. Patient seen and examined at the bedside , no new acute events overnight and no new complains this AM. He denies having any abdominal pain. Notes from nursing staff and Consults had been reviewed, and the overnight progress had been checked with the nursing staff as well. OBJECTIVE: Vitals: Temp: 97.3 F (36.3 C) BP: 106/60 Respirations: 18 Pulse: 52 SpO2: 96 % Weight Wt Readings from Last 3 Encounters: 06/13/23 77.1 kg (170 lb) 05/06/23 72.4 kg (159 lb 9.6 oz) 04/29/23 73.3 kg (161 lb 9.6 oz) Body mass index is 24.39 kg/m . 24HR INTAKE/OUTPUT: Intake/Output Summary (Last 24 hours) at 06/13/2023 2417 Last data filed at 06/13/2023 0514 Gross per 24 hour Intake -- Output 810 ml Net -810 ml Exam: GEN: Awake, alert and oriented [...] lesions. DATA: Complete Blood Count: Recent Labs 06/11/23 1015 06/12/23 0510 06/13/23 0610 WBC 16.7* 9.1 6.4 RBC 4.78 3.25* 3.06* HGB 16.0 10.8* 10.2* HCT 48.1 33.1* 31.5* MCV 100.6 101.8 102.9 RDW 12.4 12.7 12.1 PLT 312 199 169 Recent Labs 06/11/23 1015 06/12/23 0510 06/13/23 0610 NEUTROABS 14.78* 6.14 4.02 LYMPHOPCT 6* 22* 24 LYMPHSABS 0.92* 2.02 1.55 MONOPCT 5 7 8 EOSRELPCT 0* 3 4 BASOPCT 0 0 1 IMMGRAN 0 0 0 CMP: Lab Results Component Value Date GLUCOSE 81 06/13/2023 BUN 20 06/13/2023 CREATININE 0.7 06/13/2023 NA 144 06/13/2023 K 4.1 06/13/2023 CALCIUM 8.4 (L) 06/13/2023 CL 112 (H) 06/13/2023 CO2 22 06/13/2023 PROT 5.7 (L) 06/13/2023 LABALBU 3.3 (L) 06/13/2023 BILITOT 0.2 (L) 06/13/2023 ALKPHOS 90 06/13/2023 ALT 8 06/13/2023 AST 8 06/13/2023 UA: Lab Results Component Value Date COLORU Yellow 06/11/2023 SPECGRAV 1.015 06/11/2023 WBCUA 0 TO 2 06/11/2023 RBCUA None 06/11/2023 EPITHUA 0 TO 2 06/11/2023 LEUKOCYTESUR NEGATIVE 06/11/2023 GLUCOSEU NEGATIVE 06/11/2023 KETUA NEGATIVE 06/11/2023 PROTEINU NEGATIVE 06/11/2023 HGBUR NEGATIVE 06/11/2023 CASTUA NOT REPORTED 12/05/2018 CRYSTUA NOT REPORTED 12/05/2018 BACTERIA TRACE (A) 06/11/2023 YEAST NOT REPORTED 12/05/2018 Lactic Acid: Lab Results Component Value Date/Time LACTA 0.6 06/12/2023 05:10 AM LACTA 1.3 09/02/2022 07:35 PM LACTA 1.3 06/21/2022 12:30 PM High Sensitivity Troponin: Recent Labs 06/11/23 1015 TROPHS 17 Radiology/Imaging: XR ACUTE ABD SERIES CHEST 1 VW Final Result 1. No acute cardiopulmonary process. 2. Scattered gas-filled large/small bowel loops throughout the abdomen and pelvis with several mildly distended gas-filled small bowel loops up to 4 cm. Findings may represent ileus versus partial/intermittent SBO. CT ABDOMEN PELVIS W IV CONTRAST Additional Contrast? None Final Result 1. Small bowel distension without focal transition point identified. There is also a mild amount of liquid stool in the colon. These findings are most suggestive of ileus and diarrheal process versus partial obstructing process. 2. Additional chronic and benign findings, as described. XR CHEST PORTABLE Final Result No acute airspace disease identified. FL SMALL BOWEL FOLLOW THROUGH ONLY (Results Pending) ASSESSMENT: Principal Problem: Intractable nausea and vomiting Active Problems: MR (mental retardation), severe Epilepsy (HCC) JOSÉ MIGUEL (acute kidney injury) (HCC) Sepsis (HCC) Ileus (HCC) Resolved Problems: * No resolved hospital problems. * PLAN: I agree with the plan as outlined in the PRODUCTION WOOD CRAFTSMAN/PA's note Disposition: Discharge plan is pending Repeat imaging GS is following Please note that this chart was generated using voice recognition Dragon dictation software. Although every effort was made to ensure the accuracy of this automated driller and broacher, some errors in driller and broacher may have occurred. Lyla Burciaga MD 06/13/2023 4:45 PM * Marcella Desai RN - 06/12/2023 4:59 PM EDT Spoke with Dr. Quigley to confirm that he had a consult for patient - he is aware. * Marcella Desai RN - 06/12/2023 3:54 PM EDT Pt has spent most of the day in bed with his eyes closed; wakes up easily and is mostly cooperative; will catheter placed for urine retention - 575 mL out upon insertion; rolls very quickly in bed when asked to move; brief changed/bath wipes used; care ongoing, call light within reach. * Mavis Quiroz OTR/Jie - 06/12/2023 3:16 PM EDT Occupational Therapy Facility/Department: [facility] Occupational Therapy Initial Assessment Name: Amol Taylor : 1955 Date of Service: 06/12/2023 Discharge Recommendations: Continue to assess pending progress Patient Diagnosis(es): The primary encounter diagnosis was Ileus (HCC). A diagnosis of Partial small bowel obstruction (HCC) was also pertinent to this visit. Past Medical History: has a past medical history of Arthritis, BPH (benign prostatic hyperplasia), Dysphagia, GERD (gastroesophageal reflux disease), Hearing loss, HLD (hyperlipidemia), Insomnia, MR (mental retardation), Periorbital cellulitis, SBO (small bowel obstruction) (HCC), Seizures (HCC), Ve ntral hernia, and Vitamin D deficiency. Past Surgical History: has a past surgical history that includes Abdomen surgery (2012, 2013); laparoscopy (10/19/13); laparotomy (10/19/13); cast application (Left); Hydrocele surgery (10/2015); Vagusnerve stimulator insertion; and Vagus nerve stimulator insertion (12/14/2015). Treatment Diagnosis: Weakness Assessment Performance deficits / Impairments: Decreased functional mobility ;Decreased endurance;Decreased ADL status;Decreased balance;Decreased ROM;Decreased strength;Decreased safe awareness;Decreased coordination Assessment: 68 y/o M admitted to T for Ileus. Patient presents with generalized weakness and deconditioning, decreased balance, seated and standing, requiring increased need for asssist during ADL and transfers. Patient would benefit from OT services to address to ensure safe return to [facility]. Treatment Diagnosis: Weakness Prognosis: Good Decision Making: Medium Complexity REQUIRES OT FOLLOW-UP: Yes Plan Occupational Therapy Plan Times Per Day: Once a day Days Per Week: 7 Days Current Treatment Recommendations: Strengthening, Balance training, Functional mobility training, Endurance training, Patient/Caregiver education & training, Equipment evaluation, education, & procurement, Safety education & training, Self-Care / ADL Restrictions Restrictions/Precautions Restrictions/Precautions: Contact Precautions, General Precautions, seizure precautions Subjective Subjective Subjective: Patient with no outward complaints of pain, agreeable to OT evaluation. Social/Functional History Social/Functional History Type of Home: House ([facility] in [place]) Home Layout: One level ADL Assistance: Needs assistance Homemaking Assistance: Needs assistance Ambulation Assistance: Needs assistance Transfer Assistance: Needs assistance Additional Comments: Per chart, patient lives in [facility]. Per automotive technology instructor, patient was receiving in home therapy services d/t recent extended stay in hospital. Per staff at [facility], patient wouldambulate a few steps with cane, transfer with gait belt. Requires assist c ADL. Objective Safety Devices Type of Devices: All fall risk precautions in place;Bed alarm in place;Call light within reach;Nurse notified;Left in bed AROM: Generally decreased, functional PROM: Generally decreased, functional Strength: Generally decreased, functional Coordination: Generally decreased, functional Tone: Normal Sensation: Intact ADL Feeding: Stand by assistance;Setup Grooming: Minimal assistance UE Bathing: Moderate assistance LE Bathing: Maximum assistance UE Dressing: Moderate assistance LE Dressing: Maximum assistance Toileting: Maximum assistance Functional Mobility Skilled Clinical Factors: DNT functional mobility Additional Comments: CGA to min A ADL sit <> stand trasnfers. F-/P+ balance while standing; Patient demosntrates Fair to F- balance seated unsupported EOB. Skin Care: Soap and water Vision Vision: Within Functional Limits Hearing Hearing: Within functional limits Cognition Overall Cognitive Status: Exceptions Arousal/Alertness: Appropriate responses to stimuli Following Commands: Follows one step commands with increased time;Follows one step commands with repetition Attention Span: Attends with cues to redirect Insights: Decreased awareness of deficits Orientation Orientation Level: Oriented to person Education Given To: Patient Education Provided: Role of Therapy;Plan of Care;Transfer Training Education Method: Verbal Barriers to Learning: Cognition Education Outcome: Verbalized understanding;Demonstrated understanding;Continued education needed AM-PAC - ADL AM-PAC Daily Activity - Inpatient How much help is needed for putting on and taking off regular lower body clothing?: A Lot How much help is needed for bathing (which includes washing, rinsing, drying)?: A Lot How much help is needed for toileting (which includes using toilet, bedpan, or urinal)?: A Lot How much help is needed for putting on and taking off regular upper body clothing?: A Little How much help is needed for taking care of personal grooming?: A Little How much help for eating meals?: A Little AM-PAC Inpatient Daily Activity Raw Score: 15 AM-PAC Inpatient ADL T-Scale Score : 34.69 ADL Inpatient CMS 0-100% Score: 56.46 ADL Inpatient CMS G-Code Modifier : CK Goals Short Term Goals Time Frame for Short Term Goals: 21 visits Short Term Goal 1: Patient to tolerate sitting EOB x 10 minutes while engaging in functional tasks of choice s LOB to improve core strength and ovralls afety during bedside ADL. Short Term Goal 2: Patient to complete ADL transfers c SBA to supervision to improve patient independence and safety. Short Term Goal 3: Patient to engage in 15minutes of ther ex/ther act to improve strength and activity tolerance for ADL. Short Term Goal 4: Patient to tolerate standing x 3 minutes while engaging in functional task of choice to improve standing tolerance, balance and safety during ADL and transfers. Therapy Time Individual Concurrent Group Co-treatment Time In 1450 Time Out 1505 Minutes 15 Mavis Quiroz OTR/L * Marcella Desai RN - 06/12/2023 2:01 PM EDT Spoke with Iveth (nurse) at [facility] regarding patient's urine elimination habits - stated that he voids several times per day before and after meals. Will notify [facility] for further orders. * Mervat Llamas OT - 06/12/2023 11:52 AM EDT [facility] Inpatient/Observation/Outpatient Rehabilitation Date: 06/12/2023 Patient Name: Amol Taylor [x] Inpatient Acute/Observation [] Outpatient : 1955 [] Pt no showed for scheduled appointment [x] Pt refused/declined therapy at this time due to: Pt stated he would like to sleep and would notopen eyes . [] Pt cancelled due to: [] No Reason Given [] Sick/ill [] Other: [] Evaluation held by RN/Provider due to: [] High Heart Rate [] High Blood Pressure [] Orthopedic Consult [] Hgb < 7 [] Other: [] Pt does not require skilled services due to: Therapist/Sound Art Instructor will attempt to see this patient, at our earliest opportunity. Mervat Llamas OT Date: 06/12/2023 * Marcella Desai RN - 06/12/2023 10:08 AM EDT Flushed red and romano lines with 10 mL of NS before each medication administration, then an additional 10 mL for red and romano lines after administration.Care ongoing, call light within reach. * Marcella Desai RN - 06/12/2023 7:37 AM EDT Service Coordinator Elderly Facility to bedside to complete morning assessment. Upon entry to room, pt lying in bed with eyes closed, helmet in place, seizure precautions in place, respirations even and unlabored while on room air. Vitals obtained and assessment completed, see flow sheet for details. Pt was cooperative, but insi sted that I hurry up and stop asking so many questions. Pt denies needs from real estate underwriter at this time.Call light in reach. Care ongoing. * Dorota Woodson APRN - PATTERN PAINTER - 06/12/2023 6:34 AM EDT Progress Note SUBJECTIVE: Patient seen for f/u of Intractable nausea and vomiting. He resting in bed no distress. Says his belly does hurt ROS: Constitutional: negative for fevers, and negative for chills. Respiratory: negative for shortness of breath, negative for cough, and negative for wheezing Cardiovascular: negative for chest pain, and negative for palpitations Gastrointestinal: positive for abdominal pain, positive for nausea,positive for vomiting, positive for diarrhea, and negative for constipation All other systems were reviewed with the patient and are negative unless otherwise stated in HPI OBJECTIVE: Vitals: Vitals: 06/12/23 0737 BP: (!) 103/57 Pulse: 79 Resp: 24 Temp: 97.5 F (36.4 C) SpO2: 99% Weight - Scale: 74.9 kg (165 lb 2 oz) Height: 177.8 cm (5' 10 ) Weight Wt Readings from Last 3 Encounters: 06/12/23 74.9 kg (165 lb 2 oz) 05/06/23 72.4 kg (159 lb 9.6 oz) 04/29/23 73.3 kg (161 lb 9.6 oz) Body mass index is 23.69 kg/m . 24HR INTAKE/OUTPUT: Intake/Output Summary (Last 24 hours) at 06/12/2023 0827 Last data filed at 06/12/2023 0751 Gross per 24 hour Intake 2043.6 ml Output 700 ml Net 1343.6 ml Exam: GEN: Awake, alert and oriented to person and place only. EYES: EOMI, pupils equal NECK: Supple. No lymphadenopathy. No carotid bruit CVS: regular rate and rhythm, no audible murmur PULM: CTA, no wheezes, rales or rhonchi, no acute respiratory distress ABD: Bowels sounds normal. Abdomen is soft. No distention. generalized tenderness to palpation. EXT: no edema bilaterally . No calf tenderness. NEURO: Moves all extremities. Motor and sensory are grossly intact SKIN: No rashes. No skin lesions. Diagnostic Data: Complete Blood Count: Recent Labs 06/11/23 1015 06/12/23 0510 WBC 16.7* 9.1 RBC 4.78 3.25* HGB 16.0 10.8* HCT 48.1 33.1* MCV 100.6 101.8 MCH 33.5 33.2 MCHC 33.3 32.6 RDW 12.4 12.7 PLT 312 199 MPV 9.1 9.2 Last 3 Blood Glucose: Recent Labs 06/11/23 1015 06/12/23 0510 GLUCOSE 134* 90 Comprehensive Metabolic Profile: Recent Labs 06/11/23 1015 06/12/23 0510 NA 140 142 K 4.7 3.9 CL 102 112* CO2 23 22 BUN 46* 36* CREATININE 1.6* 0.9 GLUCOSE 134* 90 CALCIUM 10.1 8.2* PROT 9.1* 6.3* LABALBU 4.7 3.4* BILITOT 0.5 0.2* ALKPHOS 167* 103 AST 18 9 ALT 18 11 Urinalysis: Lab Results Component Value Date/Time NITRU NEGATIVE 06/11/2023 03:28 PM COLORU Yellow 06/11/2023 03:28 PM PHUR 6.0 06/11/2023 03:28 PM WBCUA 0 TO 2 06/11/2023 03:28 PM RBCUA None 06/11/2023 03:28 PM MUCUS TRACE 06/11/2023 03:28 PM TRICHOMONAS NOT REPORTED 12/05/2018 06:15 AM YEAST NOT REPORTED 12/05/2018 06:15 AM BACTERIA TRACE 06/11/2023 03:28 PM SPECGRAV 1.015 06/11/2023 03:28 PM LEUKOCYTESUR NEGATIVE 06/11/2023 03:28 PM UROBILINOGEN Normal 06/11/2023 03:28 PM BILIRUBINUR NEGATIVE 06/11/2023 03:28 PM BILIRUBINUR NEGATIVE 10/31/2010 12:33 PM GLUCOSEU NEGATIVE 06/11/2023 03:28 PM GLUCOSEU NEGATIVE 10/31/2010 12:33 PM KETUA NEGATIVE 06/11/2023 03:28 PM AMORPHOUS 2+ 06/12/2022 11:10 AM HgBA1c: No results found for: LABA1C Lactic Acid: Lab Results Component Value Date/Time LACTA 0.6 06/12/2023 05:10 AM LACTA 1.3 09/02/2022 07:35 PM LACTA 1.3 06/21/2022 12:30 PM Radiology/Imaging: CT ABDOMEN PELVIS W IV CONTRAST Additional Contrast? None Final Result 1. Small bowel distension without focal transition point identified. There is also a mild amount of liquid stool in the colon. These findings are most suggestive of ileus and diarrheal process versus partial obstructing process. 2. Additional chronic and benign findings, as described. XR CHEST PORTABLE Final Result No acute airspace disease identified. ASSESSMENT / PLAN: MEDICAL DECISION MAKING: Primary Problem(s): Intractable nausea and vomiting Differential diagnoses: SBO, ileus Condition is a chronic illness with exacerbation, progression or side effects of treatment Condition is stable Treatment plan: Consult general surgery N.p.o. Monitor labs replace electrolytes PT OT Imaging: no further imaging studies ordered today Medications: Zofran as needed Medication Monitoring / High Risk Medications: none Sepsis of unknown etiology Condition is stable Treatment plan: Blood cultures-pending Urine culture-pending Monitor labs replace electrolytes PT OT Imaging: no further imaging studies ordered today Medications: Received 30 ml/kg bolus in ED IV fluids Continue IV Rocephin and Flagyl Seizures Condition is a chronic stable condition Treatment plan: Seizure precautions Imaging: no further imaging studies ordered today Medications: Hold Lamictal Continue IV Keppra Continue IV Vimpat Hold primidone JOSÉ MIGUEL Condition is stable Treatment plan: CBC, CMP Imaging: No further imaging studies ordered today Medications: IV fluids Nutrition status: mild malnutrition Dermatology Nurse Practitioner consult initiated Hospital Prophylaxis: DVT: Lovenox Stress Ulcer: PPI Disposition: Shared decision making: All test results, treatment options and disposition options were discussed with the patient today Social determinants of health that may impact management: Resides in [facility] Code status: Full Code Disposition: Discharge plan is pending [facility] Advanced Care Planning documentation: [x] I have [...] Dorota Woodson APRN - OTONIEL , RAISA, PRODUCTION WOOD CRAFTSMAN-C Hospitalist Medicine 06/12/2023, 8:27 AM Associated attestation - Lyla Burciaga MD - 06/12/2023 7:27 PM EDT Images from the original note were not included. [address], [address] Attestation Patient: Amol Taylor Date of Admission: 06/11/2023 9:10 AM Hospital Day # 1 Date of Evaluation: 06/12/2023 I personally evaluated and examined the patient [id number] in conjunction with the PA/PRODUCTION WOOD CRAFTSMAN and agree with the management and dispostition of the patient. Please see the PA/PRODUCTION WOOD CRAFTSMAN's note for full details.My gee findings are: SUBJECTIVE: Patient seen for follow up of Intractable nausea and vomiting. Patient seen and examined at the bedside , no new acute events overnight and no new complains noted. He states that he continues to have some abdominal pain. No n/v. Notes from nursing staff and Consults had been reviewed, and the overnight progress had been checked with the nursing staff as well. OBJECTIVE: Vitals: Temp: 97.4 F (36.3 C) BP: 111/66 Respirations: 21 Pulse: 67 SpO2: 97 % Weight Wt Readings from Last 3 Encounters: 06/12/23 74.9 kg (165 lb 2 oz) 05/06/23 72.4 kg (159 lb 9.6 oz) 04/29/23 73.3 kg (161 lb 9.6 oz) Body mass index is 23.69 kg/m . 24HR INTAKE/OUTPUT: Intake/Output Summary (Last 24 hours) at 06/12/2023 192 Last data filed at 06/12/2023 1535 Gross per 24 hour Intake 2043.6 ml Output 875 ml Net 1168.6 ml Exam: GEN: Awake, alert and oriented [...] lesions. DATA: Complete Blood Count: Recent Labs 06/11/23 1015 06/12/23 0510 WBC 16.7* 9.1 RBC 4.78 3.25* HGB 16.0 10.8* HCT 48.1 33.1* MCV 100.6 101.8 RDW 12.4 12.7 PLT 312 199 Recent Labs 06/11/23 1015 06/12/23 0510 NEUTROABS 14.78* 6.14 LYMPHOPCT 6* 22* LYMPHSABS 0.92* 2.02 MONOPCT 5 7 EOSRELPCT 0* 3 BASOPCT 0 0 IMMGRAN 0 0 CMP: Lab Results Component Value Date GLUCOSE 90 06/12/2023 BUN 36 (H) 06/12/2023 CREATININE 0.9 06/12/2023 NA 142 06/12/2023 K 3.9 06/12/2023 CALCIUM 8.2 (L) 06/12/2023 CL 112 (H) 06/12/2023 CO2 22 06/12/2023 PROT 6.3 (L) 06/12/2023 LABALBU 3.4 (L) 06/12/2023 BILITOT 0.2 (L) 06/12/2023 ALKPHOS 103 06/12/2023 ALT 11 06/12/2023 AST 9 06/12/2023 UA: Lab Results Component Value Date COLORU Yellow 06/11/2023 SPECGRAV 1.015 06/11/2023 WBCUA 0 TO 2 06/11/2023 RBCUA None 06/11/2023 EPITHUA 0 TO 2 06/11/2023 LEUKOCYTESUR NEGATIVE 06/11/2023 GLUCOSEU NEGATIVE 06/11/2023 KETUA NEGATIVE 06/11/2023 PROTEINU NEGATIVE 06/11/2023 HGBUR NEGATIVE 06/11/2023 CASTUA NOT REPORTED 12/05/2018 CRYSTUA NOT REPORTED 12/05/2018 BACTERIA TRACE (A) 06/11/2023 YEAST NOT REPORTED 12/05/2018 Lactic Acid: Lab Results Component Value Date/Time LACTA 0.6 06/12/2023 05:10 AM LACTA 1.3 09/02/2022 07:35 PM LACTA 1.3 06/21/2022 12:30 PM High Sensitivity Troponin: Recent Labs 06/11/23 1015 TROPHS 17 Radiology/Imaging: CT ABDOMEN PELVIS W IV CONTRAST Additional Contrast? None Final Result 1. Small bowel distension without focal transition point identified. There is also a mild amount of liquid stool in the colon. These findings are most suggestive of ileus and diarrheal process versus partial obstructing process. 2. Additional chronic and benign findings, as described. XR CHEST PORTABLE Final Result No acute airspace disease identified. ASSESSMENT: Principal Problem: Intractable nausea and vomiting Active Problems: MR (mental retardation), severe Epilepsy (HCC) JOSÉ MIGUEL (acute kidney injury) (HCC) Sepsis (HCC) Ileus (HCC) Resolved Problems: * No resolved hospital problems. * PLAN: I agree with the plan as outlined in the PRODUCTION WOOD CRAFTSMAN/PA's note Disposition: Discharge plan is pending GS is pending Please note that this chart was generated using voice recognition [employer] dictation software. Although every effort was made to ensure the accuracy of this automated driller and broacher, some errors in driller and broacher may have occurred. 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 Not currently triggering for malnutrition as had in past. Weight has declined more since last hospitalization but none clinically singnificant for any defined timeframe. R/o C-Diff noted. Multiple diet orders noted at [facility], including Pureed and honey thicks, M/S with nectar thicks, and avoidance of greasy foods, popcorn. No attendants present to clarify and Amol is asleep. Noted use of B12, vit D and Mg++ as routine supplements. Nutrition Related Findings: watery bm. non pitting to +1 BLE edema. Wound Type: None Current Nutrition Intake & Therapies: Average Meal Intake: NPO Average Supplements Intake: NPO Diet NPO Exceptions are: Sips of Water with Meds Anthropometric Measures: Height: 177.8 cm (5' 10 ) [place] Body Weight (IBW): 166 lbs (75 kg) Admission Body Weight: 74.8 kg (165 lb) Current Body Weight: 74.9 kg (165 lb 2 oz), 99.5 % IBW. Weight Source: Bed Scale Current BMI (kg/m2): 23.7 Usual Body Weight: 83 kg (182 lb 15.7 oz) (a year ago. 159.6# a month ago) % Weight Change (Calculated): -9.8 Weight Adjustment For: No Adjustment BMI Categories: Normal Weight (BMI 18.5-24.9) Estimated Daily Nutrient Needs: Energy Requirements Based On: Kcal/kg Weight Used for Energy Requirements: Current Energy (kcal/day): 1641-8777 (25-30) Weight Used for Protein Requirements: Current Protein (g/day): 90-105 (1.2-1.4) Method Used for Fluid Requirements: 1 ml/kcal Fluid (ml/day): 2300 Nutrition Diagnosis: Inadequate protein-energy intake related to altered GI function as evidenced by NPO or clear liquidstatus due to medical condition, nausea, vomiting, diarrhea Lab Results Component Value Date NA 142 06/12/2023 K 3.9 06/12/2023 CL 112 (H) 06/12/2023 CO2 22 06/12/2023 BUN 36 (H) 06/12/2023 CREATININE 0.9 06/12/2023 GLUCOSE 90 06/12/2023 CALCIUM 8.2 (L) 06/12/2023 PROT 6.3 (L) 06/12/2023 LABALBU 3.4 (L) 06/12/2023 BILITOT 0.2 (L) 06/12/2023 ALKPHOS 103 06/12/2023 AST 9 06/12/2023 ALT 11 06/12/2023 LABGLOM >90 06/12/2023 GFRAA >60 09/10/2021 AGRATIO 1.2 06/12/2023 GLOB NOT REPORTED 04/13/2021 No results found for: LABA1C Lab Results Component Value Date VITD25 28.6 (L) 10/31/2018 Nutrition Interventions: Food and/or Nutrient Delivery: Continue NPO Nutrition Education/Counseling: Education not appropriate Coordination of Nutrition Care: Continue to monitor while inpatient Plan of Care discussed with: no one. Goals: Goals: Meet at least 75% of estimated needs Nutrition Monitoring and Evaluation: Behavioral-Environmental Outcomes: Other (Comment) (MR) Food/Nutrient Intake Outcomes: Diet Advancement/Tolerance Physical Signs/Symptoms Outcomes: Biochemical Data, Fluid Status or Edema, Weight, GI Status Discharge Planning: Too soon to determine Rinku Montalvo RD, NNEKA Contact: [phone] * Andreas Cardenas RN - 06/11/2023 11:33 PM EDT Lab called and informed of new orders. Pt c/o nausea, denies any abd pain but declines medications at this time. * Andreas Cardenas RN - 06/11/2023 11:21 PM EDT Pt incontinent of stool and urine, requested bed acevedo and urinal with results. Hygiene care performed. Bed alarm on and call light in reach. * Andreas Cardenas RN - 06/11/2023 7:56 PM EDT RN at bedside for picc line placement. * Andreas Cardenas RN - 06/11/2023 7:37 PM EDT Pt is resting in bed. Seizure pads applied for precautions. Pt is alert, no complaints of pain. 22gpiv to right foot assessed, no s/s of infiltrate. Helmet in place. VS and assessment complete. Bed alarm on and call light in reach. * Gayatri Sneed RN - 06/11/2023 5:59 PM EDT Service Coordinator [facility] Facility attempted to call delivery rn again and got voicemail again. Waiting for response. * Gayatri Sneed RN - 06/11/2023 3:40 PM EDT Service Coordinator [facility] called and left voicemail for delivery rn for PICC. Waiting for response. * Gayatri Sneed RN - 06/11/2023 2:28 PM EDT [facility] at [facility] time. Vitals and assessment complete. See flowsheets for details. Vitals are WNL. Patient is resting in bed. No distress noted. Patient denies pain. Breathingis regular and unlabored. Abdomen is soft, round, and nontender. Bowel sounds are active x4. Patient denies N/V/D at this time. Patient denies further needs. Service Coordinator [facility] Facility instructed on use of the call light. Call light is within reach. Care ongoing. [facility] course Narrative* Dorota Woodson, PROGRAM DIR - PATTERN PAINTER - 06/14/2023 2:11 PM EDT Images from the original note were not included. Discharge Summary Amol Taylor : 1955 Admit date: 06/11/2023 Discharge date: 06/14/2023 Admitting Physician: Lyla Burciaga MD Discharge Diagnoses: Principal Problem: Intractable nausea and vomiting Active Problems: MR (mental retardation), severe Epilepsy (HCC) JOSÉ MIGUEL (acute kidney injury) ([facility]) Sepsis (HCC) Ileus ([facility]) Resolved Problems: * No resolved hospital problems. * Hospital Course: Amol Taylor is a 68 y.o. male admitted with intractable nausea vomiting. He presented from the [facility] with nausea vomiting diarrhea. Symptom onset 1 day. 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 He does have history of MR, seizures with vagus nerve stimulator, hyperlipidemia, arthritis and ventral hernia. During patient's initial workup WBC count was 16.7 with a left shift. BUN was 46 and creatinine of 1.6. Patient's baseline creatinineis 0.7-0.8. Lactic acid was elevated at 2.[address] abdomen and pelvis showed small bowel distention without focal transition point identified, mild amount of liquid stool in the colon likely an ileus and diarrhea process versus partial obstructing process. Patient was admitted General surgery was consulted labs monitored electrolytes replaced. Patient was hydrated well with fluids and required Will catheter for better monitoring of output. Will catheter removed and patient is voiding well. Patient did complete small bowel follow-through and has been having multiple liquid stools. Diet was advanced and tolerating well. Electrolytes replaced. Plan will be to discharge home today I willask that he gets repeat labs next week and follow-up with primary care. I also will continue him onKlor-Con 20 mill equivalents daily for 5 days. Consultants: Dr. Quigley, general surgery Procedures: none Complications: none Discharge Condition: fair Exam: GEN: Awake, alert and oriented to person and place only. EYES: EOMI, pupils equal NECK: Supple. No lymphadenopathy. No carotid bruit CVS: regular rate and rhythm, no audible murmur PULM: CTA, no wheezes, rales or rhonchi, no acute respiratory distress ABD: Bowels sounds normal. Abdomen is soft. No distention. No tenderness to palpation. EXT: no edema bilaterally . No calf tenderness. NEURO: Moves all extremities. Motor and sensory are grossly intact SKIN: No rashes. No skin lesions. Significant Diagnostic Studies: Lab Results Component Value Date WBC 6.9 06/14/2023 HGB 10.6 (L) 06/14/2023 PLT 179 06/14/2023 Lab Results Component Value Date BUN 12 06/14/2023 CREATININE 0.6 (L) 06/14/2023 NA 140 06/14/2023 K 3.2 (L) 06/14/2023 CALCIUM 8.2 (L) 06/14/2023 CL 109 (H) 06/14/2023 CO2 22 06/14/2023 LABGLOM >90 06/14/2023 Lab Results Component Value Date WBCUA 0 TO 2 06/11/2023 RBCUA None 06/11/2023 EPITHUA 0 TO 2 06/11/2023 LEUKOCYTESUR NEGATIVE 06/11/2023 SPECGRAV 1.015 06/11/2023 GLUCOSEU NEGATIVE 06/11/2023 KETUA NEGATIVE 06/11/2023 PROTEINU NEGATIVE 06/11/2023 HGBUR NEGATIVE 06/11/2023 CASTUA NOT REPORTED 12/05/2018 CRYSTUA NOT REPORTED 12/05/2018 BACTERIA TRACE (A) 06/11/2023 YEAST NOT REPORTED 12/05/2018 CT ABDOMEN PELVIS W IV CONTRAST Additional Contrast? None Result Date: 06/11/2023 EXAMINATION: CT OF THE ABDOMEN AND PELVIS WITH CONTRAST 06/11/2023 12:18 pm TECHNIQUE: CT of the abdomen and pelvis was performed with the administration of intravenous contrast. Multiplanar reformatted images are provided for review. Automated exposure control, iterative reconstruction, and/or weight based adjustment of the mA/kV was utilized to reduce the radiation dose to as low as reasonably achievable. COMPARISON: 04/23/2023. HISTORY: ORDERING SYSTEM PROVIDED HISTORY: r/o SBO TECHNOLOGIST PROVIDED HISTORY: r/o SBO Decision Support Exception - unselect if not a suspected or confirmed emergency medical condition->Emergency Medical Condition (MA) FINDINGS: Lower Chest: No acute findings.Organs: Motion artifact noted. The liver, pancreas, spleen, kidneys, and adrenals reveal no acute findings. Fluid density with peripheral calcification in the lateral subcapsular left kidney is noted, likely sequela of old subcapsular hematoma. No inflammatory change identified in the gallbladder fossa. GI/Bowel: The stomach is well distended with ingested material. Mild amount of liquid stool throughout the colon and fluid within small bowel. There is mild small bowel distension with gradual transition in the right abdomen, favoring ileus versus partial obstructing process. Small bowel anastomosis in the left abdomen again noted. Pelvis: The bladder is well distended. No acute findings identified. Peritoneum/Retroperitoneum: No free air or free fluid. The aorta is normal in caliber. The visceral branches are patent. Calcified atheromatous plaque is present. No lymphadenopathy. Contrastis present in the left femoral venous system, left common iliac vein and IVC, which may be due to contrast injection. Bones/Soft Tissues: No acute findings identified. Advanced multilevel degenerative disc disease with marginal hypertrophic changes throughout the lumbar spine. 1. Small bowel distension without focal transition point identified. There is also a mild amount ofliquid stool in the colon. These findings are most suggestive of ileus and diarrheal process versuspartial obstructing process. 2. Additional chronic and benign findings, as described. XR CHEST PORTABLE Result Date: 06/11/2023 EXAMINATION: ONE XRAY VIEW OF THE CHEST 06/11/2023 11:49 am COMPARISON: 04/25/2023 HISTORY: ORDERING SYSTEM PROVIDED HISTORY: abd pain TECHNOLOGIST PROVIDED HISTORY: abd pain FINDINGS: The cardiomediastinal silhouette is unchanged in appearance. There is no consolidation, pneumothorax, or evidence ofedema. No effusion is appreciated. The osseous structures are unchanged in appearance. Neurostimulator with lead projecting over the left neck again noted. No acute airspace disease identified. Assessment and Plan: Patient Active Problem List Diagnosis Date Noted Ileus ([facility]) 06/12/2023 Intractable nausea and vomiting 06/11/2023 JOSÉ MIGUEL (acute kidney injury) ([facility]) 05/01/2023 Sepsis ([facility]) 05/01/2023 Pneumatosis intestinalis 05/01/2023 Seizure-like activity ([facility]) 04/26/2023 Nausea and vomiting 02/12/2023 Seizure disorder ([facility]) 02/12/2023 S/P placement of VNS (vagus nerve stimulation) device 02/11/2023 Dysphagia 02/11/2023 Elevated international normalized ratio (INR) 02/11/2023 Intellectual disability 02/10/2023 SBO (small bowel obstruction) ([facility]) 06/21/2022 AFTAB (obstructive sleep apnea) 10/11/2016 Epilepsy ([facility]) 12/14/2015 Epileptic seizures ([facility]) 12/14/2015 MR (mental retardation), severe 10/20/2013 Small bowel obstruction ([facility]) 10/18/2013 Seizures ([facility]) Chronic 10/18/2013 Discharge Medications: Medication List START taking these medications potassium chloride 20 MEQ extended release tablet Commonly known as: KLOR-CON M Take 1 tablet by mouth daily for 5 days CONTINUE taking these medications benzonatate 100 MG capsule Commonly known as: TESSALON calcium carbonate 500 MG chewable tablet Commonly known as: TUMS cerave Crea Debrox 6.5 % otic solution Generic drug: carbamide peroxide Start taking on: June 23, 2023 diazePAM 20 MG Gel Commonly known as: [...] KEPPRA Take 2 tablets by mouth daily linaclotide 145 MCG capsule Commonly known as: LINZESS Take 1 capsule by mouth every morning (before breakfast) LORazepam 0.5 MG tablet Commonly known as: ATIVAN magnesium oxide 400 (240 Mg) MG tablet Commonly known as: MAG-OX meclizine 25 MG tablet Commonly known as: ANTIVERT melatonin 3 MG Tabs tablet ondansetron 4 MG disintegrating tablet Commonly known as: ZOFRAN-ODT oxyBUTYnin 10 MG extended release tablet Commonly known as: DITROPAN-XL pantoprazole 40 MG tablet Commonly known as: PROTONIX Take 1 tablet by mouth every morning (before breakfast) * primidone 250 MG tablet Commonly known as: MYSOLINE * primidone 250 MG tablet Commonly known as: MYSOLINE ProAir HFA 108 (90 Base) MCG/ACT inhaler Generic drug: albuterol sulfate HFA sennosides-docusate sodium 8.6-50 MG tablet Commonly known as: SENOKOT-S Take 2 tablets by mouth daily Systane Nighttime Oint tamsulosin 0.4 MG capsule Commonly known as: FLOMAX vitamin B-12 1000 MCG tablet Commonly known as: CYANOCOBALAMIN Vitamin D 25 MCG (1000 UT) Tabs tablet Commonly known as: CHOLECALCIFEROL * This list has 6 medication(s) that are the same as other medications prescribed for you. Read thedirections carefully, and ask your doctor or other care provider to review them with you. STOP taking these medications polyethyl glycol-propyl glycol 0.4-0.3 % 0.4-0.3 % ophthalmic solution Commonly known as: SYSTANE Where to Get Your Medications These medications were sent to [facility], [address] - P [phone] - F [phone] [place] [id number] potassium chloride 20 MEQ extended release tablet Patient Instructions: Activity: activity as tolerated Diet: regular diet Wound Care: none needed Other: None Disposition: Discharge to Home Follow up: Patient will be followed by Carson Dior MD in 1-2 weeks CORE MEASURES on Discharge (if applicable) JASON/ARB in CHF: NA Statin in VT: NA ASA in VT: NA Statin in CVA: NA Antiplatelet in CVA: NA Total time spent on discharge services: 40 minutes Including the following activities: Evaluation and Management of patient Discussion with patient and/or surrogate about current care plan Coordination with Case Management and/or Staff Certified Nurse Midwife Coordination of care with Consultants (if applicable) Coordination of care with Receiving Facility Physician (if applicable) Completion of DME forms (if applicable) Preparation of Discharge Summary Preparation of Medication Reconciliation Preparation of Discharge Prescriptions Signed: Dorota Woodson APRN - OTONIEL, RAISA, PRODUCTION WOOD CRAFTSMAN-C 06/14/2023, 2:27 PM Associated attestation - Lyla Burciaga MD - 06/14/2023 2:57 PM EDT Images from the original note were not included. [address], [address] Attestation Patient: Amol Taylor Date of Admission: 06/11/2023 9:10 AM Hospital Day # 3 Date of Evaluation: 06/14/2023 I personally evaluated and examined the patient [id number] in conjunction with the PA/PRODUCTION WOOD CRAFTSMAN and agree with the management and dispostition of the patient. Please see the PA/PRODUCTION WOOD CRAFTSMAN's note for full details.My gee findings are: Admission date: 06/11/2023 Discharge date: 06/14/2023 Principle Diagnosis: Intractable nausea and vomiting Exam: GEN: Awake, alert and oriented to [...] intact SKIN: No rashes. No skin lesions. Disposition: Discharge to Home Follow Up: Follow up with Carson Dior MD in 1-2 weeks Total time spent on discharge services: 40 minutes Including the following activities: Evaluation and Management of patient Discussion with patient and/or surrogate about current care plan Coordination with Case Management and/or Staff Certified Nurse Midwife Coordination of care with Consultants (if applicable) Coordination of care with Receiving Facility Physician (if applicable) Completion of DME forms (if applicable) Preparation of Discharge Summary Preparation of Medication Reconciliation Preparation of Discharge Prescriptions If there are any worsening or concerning signs or symptoms, patient will report to the ED and/or contact EMS-[id number] for immediate evaluation. Teach back method was used. All patient questions answered. Pt voiced understanding. Please note that this chart was generated using voice recognition [employer] dictation software. Although every effort was made to ensure the accuracy of this automated driller and broacher, some errors in driller and broacher may have occurred. Lyla Burciaga MD 06/14/2023 2:55 PM documented in [facility] Hospital Discharge instructions* Discharge Instr - JOYCE* Ann Tovar LSW - 06/13/2023 11:00 AM EDT Continuity of Care Form Patient Name: Amol Taylor : 1955 Admit date: 06/11/2023 Discharge date: Code Status Order: Full Code Advance Directives: Admitting Physician: Lyla Burciaga MD PCP: Carson Dior MD Discharging Nurse: Discharging Hospital Unit/Room#: 0301/0301-01 Discharging Unit Phone Number: Emergency Contact: Extended Emergency Contact Information Primary Emergency Contact: Susan Smith [facility] Relation: Legal Guardian Secondary Emergency Contact: Eliazar [...] Epilepsy (HCC) G40.909 SBO (small bowel obstruction) ([facility]) K56.609 AFTAB (obstructive sleep apnea) G47.33 Epileptic seizures (HCC) G40.909 Intellectual disability F79 S/P placement of VNS (vagus nerve stimulation) device Z96.89 Dysphagia R13.10 Elevated international normalized ratio (INR) R79.1 Nausea and vomiting R11.2 Seizure disorder (HCC) G40.909 Seizure-like activity (HCC) R56.9 JOSÉ MIGUEL (acute kidney injury) (HCC) N17.9 Sepsis (HCC) A41.9 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 Intractable nausea and vomiting R11.2 Ileus (HCC) K56.7 Isolation/Infection: Isolation No Isolation Patient Infection Status None to display Nurse Assessment: Last Vital Signs: BP 106/60 Pulse 52 Temp 97.3 F (36.3 C) (Temporal) Resp 18 Ht 1.778 m (5'10 ) Wt 77.1 kg (170 lb) Comment: with seizure pads on bed SpO2 96% BMI 24.39 kg/m Last documented pain score (0-10 scale): Last Weight: Wt Readings from Last 1 Encounters: 06/13/23 77.1 kg (170 lb) Mental Status: {IP PT MENTAL STATUS:} IV Access: { JOYCE IV ACCESS:538769927} Nursing Mobility/ADLs: Walking {CHP DME ADLs:946371553} Transfer {CHP DME ADLs:829435666} Bathing {CHP DME ADLs:565410805} Dressing {CHP DME ADLs:032024825} Toileting {CHP DME ADLs:055263913} Feeding {CHP DME ADLs:184952562} Press Loader {P DME ADLs:534614650} Med Delivery { JOYCE MED Delivery:998129206} Wound Care Documentation and Therapy: Elimination: Continence: Bowel: {YES / NO:} Bladder: {YES / NO:} Urinary Catheter: {Urinary Catheter:242139055} Colostomy/Ileostomy/Ileal Conduit: {YES / NO:} Date of Last BM: Intake/Output Summary (Last 24 hours) at 06/13/2023 1056 Last data filed at 06/13/2023 0514 Gross per 24 hour Intake -- Output 1385 ml Net -1385 ml I/O last 3 completed shifts: In: 2042.6 [I.V.:2042.] Out: 1685 [Urine:1685] Safety Concerns: { JOYCE Safety Concerns:329550245} Impairments/Disabilities: { JOYCE Impairments/Disabilities:795662554} Nutrition Therapy: Current Nutrition Therapy: { JOYCE Diet List:054664111} Routes of Feeding: {[facility] DME Other Feedings:793200789} Liquids: {[facility] liquid thickness:29493} Daily Fluid Restriction: {[facility] DME Yes amt example:866577145} Last Modified Barium Swallow with Video (Video Swallowing Test): {Done Not Done Date:} Treatments at the Time of Hospital Discharge: Respiratory Treatments: Oxygen Therapy: {Therapy; copd oxygen:71894} Ventilator: { CC Vent List:962888939} Rehab Therapies: {THERAPEUTIC INTERVENTION:4747281154} Weight Bearing Status/Restrictions: {[facility] Weight Bearin} Other Medical Equipment (for information only, NOT a DME order): {EQUIPMENT:265659741} Other Treatments: Patient's personal belongings (please select all that are sent with patient): {[facility] DME Belongings:440847953} RN SIGNATURE: {Esignature:685990793} CASE MANAGEMENT/SOCIAL WORK SECTION Inpatient Status Date: 06/11/23 Readmission Risk Assessment Score: Readmission Risk Risk of Unplanned Readmission: 34 Discharging to Facility/ [facility]: [facility] Address: [address] [place] [address] Phone: Fax: Dialysis Facility (if applicable) Name: Address: Dialysis Schedule: Phone: Fax: Environmental Technical Officer/Staff Certified Nurse Midwife signature: PHYSICIAN SECTION Prognosis: {Prognosis:6749361677} Condition at Discharge: { Patient Condition:574731745} Rehab Potential (if transferring to Rehab): {Prognosis:[id number]} Recommended Labs or Other Treatments After Discharge: Physician Certification: I certify the above information and transfer of Amol Taylor is necessaryfor the continuing treatment of the diagnosis listed and that he requires MCC for greater 30days. Update Admission H&P: {CHP DME Changes in HandP:[id number]} PHYSICIAN SIGNATURE: {Esignature:[id number]} [facility] History of Present illness Narrative* Ray Johnson RN - 04/29/2023 3:35 PM EST Patient picked up by transport. Personal belongings packed and sent with transport. IV and telemetry removed. Pt denies pain on discharge. * Ray Johnson RN - 04/29/2023 2:10 PM EST Patient to be picked up by [facility] at 3 PM. Report given to Berna and all questions answered. Call also made to Elizabeth, pt's legal guardian, to update on cloth picker time. * Carmen Kern DO - 04/29/2023 8:45 AM EST Images from the original note were not included. [facility] Office: [phone] Braydon Isbell DO, Eliazar Zuñiga DO, Carmen Kern DO, Bolivar Valdovinos DO, Evelyn Mitchell MD, Rita Pope MD, Tammy Cox MD, Hannah Mata MD, Dimas Fuentes MD, Vasyl Stanley MD, Reva Galindo MD, Mark Coleman DO, Rochelle Almanza MD, Aron Serna MD, Irwin Isbell DO, Livia Andino MD, Aman Hester DO, Kiarra Plasencia MD, Abby Arizmendi MD, Kerrie Mccoy MD, Kennedi Spicer MD, Houston Frye MD, Elder Scott MD, Christofer Spencer MD, Erinn Nunez MD, Raeann Rodriguez MD, Kelly Owusu MD, Yana Munoz DO, Paresh Baker DO, Shwetha Qureshi MD, Domenico Rae MD, Dorota Escobar, PATTERN PAINTER, Leonie Murillo, PATTERN PAINTER, Beau Mccoy, PATTERN PAINTER, Melany Cormier, [facility],Simran Villa, PATTERN PAINTER, Maureen Williamson, PATTERN PAINTER, Gloria Faust, PATTERN PAINTER, Toshia Cho, PATTERN PAINTER, Hattie Taylor, PATTERN PAINTER, Ellen Loja PAOlgaC, SURAJ MartinezC, Zaria Flores, PATTERN PAINTER, Shani Patrick, PATTERN PAINTER, Reva Vaughan, [facility], Corinne Stanton, [facility], Manda Powell, [facility], Carleen Agarwal, [facility], Sobeida Thornton, [facility] IN-PATIENT SERVICE [facility] Progress Note 04/29/2023 8:46 AM Name: Amol Taylor Acct: [id number] Room: [facility]8/1018-02 Day: 5 Admit Date: 04/24/2023 10:56 PM PCP: Carson Dior MD Code Status: Full Code Subjective: C/C: [...] obstructions that presents as a transfer from [facility] with recurrent bowel obstruction. Apparently at the [facility] and noted decreasing abdominal distention and complaints of pain and was sent to the emergency room. He had NG tube placed and was transferred to our facility for further management. He had a recent hospital stay at [facility] apparently family refused for him to go [...] retardation), Periorbital cellulitis, SBO (small bowel obstruction) ([facility]), Seizures (HCC), Ve ntral hernia, and Vitamin D deficiency. Social History: reports that he has never smoked. He does not have any smokeless tobacco history onfile. He reports that he does not drink [...] input(s): PROT , LABALBU , LABA1C , G2VZHXO , N0OYDDK , FT4 , TSH , AST , ALT , LDH , GGT , ALKPHOS , LABGGT , BILITOT , BILIDIR , AMMONIA , AMYLASE , LIPASE , LACTATE , CHOL , HDL , LDLCHOLESTEROL , CHOLHDLRATIO , TRIG , VLDL , ALG78QX , PHENYTOIN , PHENYF , URICACID , POCGLU in the last 72 hours. ABG:No results found for: POCPH , PHART , PH , POCPCO2 , JMG7MNW , PCO2 , POCPO2 , PO2ART , PO2 , POCHCO3 , CXV2NEH , HCO3 , NBEA , PBEA , BEART , BE , THGBART , THB , FDO7ZCU , UQHC4UDO , O0XJAHTW , O2SAT , FIO2 Lab Results Component [...] in some loops of small bowel mainly inthe left side of abdomen. Physical Examination: General [...] today Carmen Kern DO 04/29/2023 8:46 AM * Sandrine Santana RN - 04/29/2023 4:50 AM EST Pt remained overall calm and cooperative throughout shift, until around 2am. Pt was not acting likehimself. Prior to this, pt was responding in sentences, took his pills whole in thickened apple juice, was able to state how he felt, etc. Service Coordinator [facility] Facility noticed pt was tachy at this time on telemetry, so walked into room to see pt putting fingers into his mouth and not responding the same. Pt looked distressed, but was unable to express how he felt. Service Coordinator Elderly Facility administered IV PRN Zofran at 0230. Once Zofranwas in system, pt stopped putting fingers in his mouth and HR decreased and went back into sinus rhythm (was sinus tachy). Brief changed as needed. See chart for output. No seizure activity noted. Ptremained on RA. Will continue with care plan * Carmen Kern DO - 04/28/2023 9:56 AM EST Images from the original note were not included. [facility] Office: [phone] Braydon Isbell DO, Eliazar Zuñiga DO, Carmen Kern DO, Bolivar Valdovinos DO, Evelyn Mitchell MD, Rita Pope MD, Tammy Cox MD, Hannah Mata MD, Dimas Fuentes MD, Vasyl Stanley MD, Reva Galindo MD, Mark Coleman DO, Rochelle Almanza MD, Aron Serna MD, Irwin Isbell DO, Livia Andino MD, Aman Hester DO, Kiarra Plasencia MD, Abyb Arizmendi MD, Kerrie Mccoy MD, Kennedi Spicer MD, Houston Frye MD, Elder Scott MD, Christofer Spencer MD, Erinn Nunez MD, Raeann Rodriguez MD, Kelly Owusu MD, Yana Munoz DO, Paresh Baker DO, Shwetha Qureshi MD, Domenico Rae MD, Dorota Escobar, OTONIEL, Leonie Murillo CNP, Beau Mccoy, PATTERN PAINTER, Melany Cormier, JOLIE,Simran Villa, OTONIEL, Maureen Williamson, OTONIEL, Gloria Faust, OTONIEL, Toshia Cho CNP, Hattie Taylor CNP, Ellen Loja, DOUGIE, SURAJ MartinezC, Zaria Flores, PATTERN PAINTER, Shani Patrick, PATTERN PAINTER, Reva Vaughan, OTONIEL, Corinne Stanton, [facility], Manda Powell, OTONIEL, Carleen Agarwal, OTONIEL, Sobeida Thornton CNP [facility] IN-PATIENT SERVICE [facility] Progress Note 04/28/2023 9:56 AM Name: Amol Taylor Acct: [id number] Room: 1018/1018-02 Day: 4 Admit Date: 04/24/2023 10:56 PM PCP: Carson Dior MD Code Status: Full Code Subjective: C/C: Small bowel obstruction Interval History Status: not changed. Patient is resting in bed, NG tube has been removed. Diet is being advanced per surgery. Denies anycomplaints of abdominal pain, nausea or vomiting, fevers or chills or acute complaints. Brief History: This is a six 8-year-old male with history of MRDD and prior bowel obstructions that presents as a transfer from [facility] with recurrent bowel obstruction. Apparently at [facility] and noted decreasing abdominal distention and complaints of pain and was sent to the emergency room. He had NG tube placed and was transferred to our facility for further management. He had a recent hospital stay at [facility] apparently family refused for him to go [...] SBO (small bowel obstruction) (HCC), Seizures (HCC), Ve ntral hernia, and Vitamin D deficiency. Social History: reports that he has never smoked. He does not have any smokeless tobacco history onfile. He reports that he does not drink [...] 1.778 m (5' 10 ) Wt 72.3 kg(159 lb 6.3 oz) SpO2 95% BMI 22.87 [...] input(s): PROT , LABALBU , LABA1C , N4MJLFI , W3AXSGC , FT4 , TSH , AST , ALT , LDH , GGT , ALKPHOS , LABGGT , BILITOT , BILIDIR , AMMONIA , AMYLASE , LIPASE , LACTATE , CHOL , HDL , LDLCHOLESTEROL , CHOLHDLRATIO , TRIG , VLDL , EIZ28EU , PHENYTOIN , PHENYF , URICACID , POCGLU in the last 72 hours. ABG:No results found for: POCPH , PHART , PH , POCPCO2 , BUO6LFC , PCO2 , POCPO2 , PO2ART , PO2 , POCHCO3 , QYR5YTY , HCO3 , NBEA , PBEA , BEART , BE , THGBART , THB , TZJ0BMT , LHZJ2NHL , M5KJJBPG , O2SAT , FIO2 Lab Results Component [...] in some loops of small bowel mainly inthe left side of abdomen. Physical Examination: General [...] advancement Carmen Kern DO 04/28/2023 9:56 AM * Toshia Correa DO - 04/28/2023 7:43 AM EST Images from the original note were not [...] Pt had small bowel follow through a fewweeks ago which was normal, symptomatic presentation this [...] and exam findings with the resident. I agreewith the assessment, plan and orders as documented by the resident. Advance diet Recommend avoiding antidiarrheal meds Will sign off * Sandrine Santana RN - 04/28/2023 4:13 AM EST Pt remained calm and cooperative throughout shift. Pt remained on RA. Pt tolerating clear liquid diet. Brief changed as needed. Need for 1:1 still remains unnecessary, pt resting well since NG has been pulled. Diet to be advanced as tolerated and per order. Will continue with care plan. * Essie Yeung, OT - 04/27/2023 2:44 PM EST Occupational Therapy Facility/Department: [facility] Daily Treatment Note NAME: Amol Taylor : 1955 Date of Service: 04/27/2023 ARA [place] reports patient is medically stable for [...] then agreeable to sitting up to EOB again.Again required MaxAx2 to sit at EOB.) Interventions: Tactile cues;Verbal cues;Visual cues (MAX cues to initiate & sequence through progression towards EOB, line awareness and safe sitting position at the EOB. Pt impulsively moves UEsand total assist needed for line mgnt.) Rolling: [...] as pt attempting to sit in recliner beforefully squared to surface.) Interventions: Safety awareness training;Tactile [...] line mgnt and pt cued for upright posture,safety when up in function, and fully squaring [...] A with use of AD and proper product safety coordinator. Short Term Goal 2: grooming task to [...] to assist with completion of ADL routine. Display Associate Goals Display Associate Goal 1: Pt/caregiver to be I with [...] and functional UE strength. Essie Yeung OT * Sharifa Bush RN - 04/27/2023 1:50 PM EST NG removed per order at 1345. Patient tolerated well 1500- pt started on clear liquid diet tolerated well, 1:1 sitter discontinued. Will increase frequency of rounds to maintain pt. safety. * Ladi Saab DO - 04/27/2023 1:33 PM EST Images from the original note were not included. [facility] Neurology Specialist [id number] [address] PH: [phone] or [phone] FAX: [phone] Brief history: Amol Taylor is a 68 y.o. old male admitted on 04/24/2023 with SBO. Subjective: No new neurological events overnight. EEG reviewed and showed encephalopathy. Patient has a VNS and family to bring in magnet. Objective: BP 113/78 Pulse 83 Temp 97.9 F (36.6 C) Resp 20 Ht 1.778 m (5' 10 ) Wt 72.3 kg(159 lb 6.3 oz) SpO2 94% BMI 22.87 [...] touch, pin, vibration, proprioception throughout Cerebellar Intact sfambe-xana-lhhvaw testing. Intact heel-monge testing. No dysdiadochokinesia present. [...] 02/10/2023 AST 16 02/10/2023 INR 1.5 02/11/2023 CFNITEPF18 295 03/22/2022 MG 1.7 09/03/2022 PHOS 3.5 [...] MRD, SBO who presented for worsening symptoms. Neurologyasked to consult due to possible seizure like [...] meaning can be extrapolated by contextual derivation. * Kathy Elliott PT - 04/27/2023 9:56 AM EST Physical Therapy Facility/Department: [facility] PROGRESSIVE CARE Daily Treatment Note NAME: Amol Taylor : 1955 Date of Service: 04/27/2023 ARA [place] reports patient is medically stable for [...] with bed mobility; transfers and gait with CLINICAL PRODUCT SPECIALIST from EOB to bedside chair. TD with [...] gait from EOB to bedside chair with CLINICAL PRODUCT SPECIALIST Interventions: Verbal and tactile cues for sequencing; [...] Learning: Cognition Education Outcome: Continued education needed [facility] - Mobility [facility] Basic Mobility - Inpatient How much help is needed turning from your back to your side while in a flat bed without using bedrails?: A Little How much help is needed moving from lying on your back to sitting on the side of a flat bed withoutusing bedrails?: A Lot How much help is needed moving to and from a bed to a chair?: A Lot How much help is needed standing up from a chair using your arms?: A Lot How much help is needed walking in hospital room?: A Lot How much help is needed climbing 3-5 steps with a railing?: Total [facility] Inpatient Mobility Raw Score : 12 [facility] Inpatient T-Scale Score : 35.33 Mobility Inpatient [...] prevention in ambulation techniques. Kathy Elliott, PT * Concha, Carmen Hernandez DO - 04/27/2023 9:50 AM EST Images from the original note were not included. [facility] Office: [phone] Braydon Isbell DO, Eliazar Zuñiga DO, Carmen Kern DO, Bolivar Valdovinos DO, Evelyn Mitchell MD, Rita Pope MD, Tammy Cox MD, Hannah Mata MD, Dimas Fuentes MD, Vasyl Stanley MD, Reva Galindo MD, Mark Coleman DO, Rochelle Almanza MD, Aron Serna MD, Irwin Isbell DO, Livia Andino MD, Aman Hester DO, Kiarra Plasencia MD, Abby Arizmendi MD, Kerrie Mccoy MD, Kennedi Spicer MD, Houston Frye MD, Elder Scott MD, Christofer Spencer MD, Erinn Nunez MD, Raeann Rodriguez MD, Kelly Owusu MD, Yana Munoz DO, Paresh Baker DO, Shwetha Qureshi MD, Domenico Rae MD, Dorota Escobar CNP, Leonie Murillo CNP, Beau Mccoy CNP, Melany Cormier DNP,Simran Vlila CNP, Maureen Williamson CNP, Gloria Faust CNP, Toshia Cho CNP, Hattie Taylor CNP, Ellen Loja PA-C, SURAJ MartinezC, Zaria Flores, OTONIEL, Shani Patrick, OTONIEL, Reva Vaughan CNP, Corinne Stanton, JOSE ROBERTO, Manda Powell CNP, Carleen Agarwal CNP, Sobeida Thornton CNP [facility] IN-PATIENT SERVICE [facility] Progress Note 04/27/2023 9:50 AM Name: Amol Taylor Acct: [id number] Room: [address] [place] [address] Day: 3 Admit Date: 04/24/2023 10:56 PM PCP: Carsno Dior MD Code Status: Full Code Subjective: C/C: Small bowel obstruction Interval History Status: not changed. Patient continues with NG tube to low intermittent suction, he denies any complaints of chest pain,shortness of breath, nausea or vomiting, fevers chills, abdominal pain or other acute complaints Brief History: This is a six 8-year-old male with history of MRDD and prior bowel obstructions that presents as a transfer from [facility] with recurrent bowel obstruction. Apparently at [facility] and noted decreasing abdominal distention and complaints of pain and was sent to the emergency room. He had NG tube placed and was transferred to our facility for further management. He had a recent hospital stay at [facility] apparently family refused for him to go [...] SBO (small bowel obstruction) (HCC), Seizures (HCC), Ve ntral hernia, and Vitamin D deficiency. Social History: reports that he has never smoked. He does not have any smokeless tobacco history onfile. He reports that he does not drink [...] input(s): PROT , LABALBU , LABA1C , K6PHPZN , H3JHXCF , FT4 , TSH , AST , ALT , LDH , GGT , ALKPHOS , LABGGT , BILITOT , BILIDIR , AMMONIA , AMYLASE , LIPASE , LACTATE , CHOL , HDL , LDLCHOLESTEROL , CHOLHDLRATIO , TRIG , VLDL , OKR60WA , PHENYTOIN , PHENYF , URICACID , POCGLU in the last 72 hours. ABG:No results found for: POCPH , PHART , PH , POCPCO2 , XBY7HBN , PCO2 , POCPO2 , PO2ART , PO2 , POCHCO3 , SXX3IJM , HCO3 , NBEA , PBEA , BEART , BE , THGBART , THB , KDS2IGV , RSHQ5GUO , J9LFUJLG , O2SAT , FIO2 Lab Results Component [...] in some loops of small bowel mainly inthe left side of abdomen. Physical Examination: General [...] (obstructive sleep apnea) 04/25/2023 Yes Seizure-like activity ([facility]) 04/26/2023 Yes Plan: Continue IV hydration NG to LIWS Activity as tolerated, PT and OT Continue seizure medications Home CPAP GI and DVT prophylaxis Avoid antidiarrheals. Carmen Kern DO 04/27/2023 9:50 AM * Sandrine Santana RN - 04/27/2023 5:37 AM EST Pt remained overall calm and cooperative tonight, but fidgety and itchy. Lotion applied to affectedareas. 1:1 sitter remains. NG output dark brown, remains connected to intermittent suction. No seizure activity this shift. Pt remained on RA. Will continue with care plan * Donnie Patel MD - 04/27/2023 5:27 AM EST General Surgery Progress Note PATIENT NAME: Amol [...] clamp trial and will consider removal with initiationof clear liquid diet this afternoon if tolerates. Monitor intake and output Monitor abdominal exam No anti-diarrheals please Encourage ambulation and incentive spirometer use Yennifer Santos DO PGY-4 04/27/2023 at 5:27 AM Attending Physician Statement I have discussed the case, including pertinent history and exam findings with the resident. I agreewith the assessment, plan and orders as documented by the resident. Attempt clamping NGT Possibly remove NGT and start clear liquids * Dayami Rose RCP - 04/26/2023 3:34 PM EST EEG completed full report to follow * Beena Elam OT - 04/26/2023 12:27 PM EST Occupational Therapy Facility/Department: [facility] Daily Treatment Note NAME: Amol Taylor : 1955 ARA Savage reports patient is medically stable for [...] min to complete exercises, pt required fluctuating assistlevels from CGA to Mod A. MAX verbal [...] completed steps in place and lateral steps towardsHOB with B hand held assistance. Pt given Max verbal cues/tactile cues for initiation, sequencing, upright posture, weight shifting, progression of BLE's. Pt very unsteady/impulsive. Would recommend non therapy staff use Jackie Anivaldy to safely mobilize pt. OT Exercises Exercise Treatment: Attempted to have pt complete UB exercises while seated on EOB. Pt unwilling toattempt despite MAX verbal cues/demonstration. Safety Devices Type [...] function, pressure relief fall prevention/call light use, OTPOC, role of OT in acute care, benefits of being OOB, recommendations for discharge/AE Education Method: Verbal Barriers to Learning: Cognition Education Outcome: Continued education needed;Unable to demonstrate understanding;Unable to verbalize Goals Short Term Goals Time Frame for Short Term Goals: By discharge, pt to demo Short Term Goal 1: ADL transfers and functional mobility to Min A with use of AD and proper product safety coordinator. Short Term Goal 2: grooming task to [...] to assist with completion of ADL routine. Display Associate Goals Shelter Goal 1: Pt/caregiver to be I with [...] professionals to address individual discipline's goals. Beena ELAM, OT * Shruthi Tovar PT - 04/26/2023 10:41 AM EST Physical Therapy Facility/Department: [facility] Rehabilitation Physical Therapy Treatment Note NAME: [...] present at bedside. Pt minimally conversive w/ real estate underwriter however stating he slept fine last [...] trunk throughout w/ poor return demo. Pt ableto initiate BLE towards EOB however requiring assist [...] demo. Heavy reliance on HH assist to forUE support throughout. Stand to Sit Assistance Level: [...] cueing for activity; quickly losing focus & reportingfatigue, requesting to return supine ASSESSMENT/PROGRESS TOWARDS GOALS [...] and postural control in sitting. Shruthi Tovar PT, 04/26/23 at 12:33 PM * Bolivar Valdovinos DO - 04/26/2023 10:03 AM EST Images from the original note were not included. [facility] Office: [phone] Braydon Isbell DO, Eliazar Zuñiga DO, Carmen Kern DO, Bolivar Valdovinos DO, Evelyn Mitchell MD, Rita Pope MD, Tammy Cox MD, Hannah Mata MD, Dimas Fuentes MD, Vasyl Stanley MD, Reva Galindo MD, Mark Coleman DO, Rochelle Almanza MD, Aron Serna MD, Irwin Isbell DO, Livia Andino MD, Aman Hester DO, Kiarra Plasencia MD, Abby Arizmendi MD, Kerrie Mccoy MD, Kennedi Spicer MD, Houston Frye MD, Elder Scott MD, Christofer Spencer MD, Erinn Nunez MD, Raeann Rodriguez MD, Kelly Owusu MD, Yana Munoz DO, Paresh Baker DO, Shwetha Qureshi MD, Domenico Rae MD, Dorota Escobar, PATTERN PAINTER, Leonie Murillo, PATTERN PAINTER, Beau Mccoy, PATTERN PAINTER, Melany Cormier, [facility],Simran Villa, PATTERN PAINTER, Maureen Williamson, PATTERN PAINTER, Gloria Faust, PATTERN PAINTER, Toshia Cho, PATTERN PAINTER, Hattie Taylor, PATTERN PAINTER, Ellen Loja, PA-C, Karey Carrillo, PA-C, Zaria Flores, PATTERN PAINTER, Shani Patrick, PATTERN PAINTER, Reva Vaughan, PATTERN PAINTER, Corinne Stanton, PROBE OPERATOR, Manda Powell, PATTERN PAINTER, Carleen Agarwal, PATTERN PAINTER, Sobeida Thornton, PATTERN PAINTER [facility] IN-PATIENT SERVICE [facility] Progress Note 04/26/2023 10:03 AM Name: Amol Taylor Acct: [id number] [facility] Day: 2 Admit Date: 04/24/2023 10:56 PM PCP: Carson Dior MD Code Status: Full Code Subjective: C/C: sbo Interval History Status: not changed. Awake, alert Unable to give history Pulls at ng sometimes Sitter at bedside Had a seizure last night and given ativan Brief History: Per my partner: This is a 68-year-old male with history of MRDD and prior bowel obstruction who presents as a transfer from [facility] with recurrent bowel obstruction. Apparently was recently treated and released from [facility] with similar complaints and now returns with increasing abdominal distention and pain. Patient is currently seen in his room and denies any complaints of abdominal pain, nausea or vomiting, fevers or chills or other acute complaints. He is a poor historian but does reporthis bowels been moving. Review of Systems: unobtainable [...] SBO (small bowel obstruction) (HCC), Seizures (HCC), Ve ntral hernia, and Vitamin D deficiency. Social History: reports that he has never smoked. He does not have any smokeless tobacco history onfile. He reports that he does not drink [...] 1.778 m (5' 10 ) Wt 77.2 kg(170 lb 1.6 oz) SpO2 94% BMI 24.41 [...] input(s): PROT , LABALBU , LABA1C , J8BGCXB , F8ASOAD , FT4 , TSH , AST , ALT , LDH , GGT , ALKPHOS , LABGGT , BILITOT , BILIDIR , AMMONIA , AMYLASE , LIPASE , LACTATE , CHOL , HDL , LDLCHOLESTEROL , CHOLHDLRATIO , TRIG , VLDL , SUL65GF , PHENYTOIN , PHENYF , URICACID , POCGLU in the last 72 hours. ABG:No results found for: POCPH , PHART , PH , POCPCO2 , ONK2UYH , PCO2 , POCPO2 , PO2ART , PO2 , POCHCO3 , GRM0GAM , HCO3 , NBEA , PBEA , BEART , BE , THGBART , THB , FYL1BRK , GNUP8GUG , W3ICEJIC , O2SAT , FIO2 Lab Results Component [...] in some loops of small bowel mainly inthe left side of abdomen. Physical Examination: General [...] listed as historical and unclear if active medsor not If vimpat current, will need to change it to iv Ativan prn for breakthrough seizures Ng to liws Supportive care Replace edmund Valdovinos DO 04/26/2023 10:03 AM * Donnie Patel MD - 04/26/2023 5:41 AM EST General Surgery: Daily Progress Note PATIENT NAME: [...] Small bowel obstruction (HCC) [K56.609] 10/18/2013 Seizures ([facility]) Chronic [R56.9] 10/18/2013 68 y.o. [...] and exam findings with the resident. I agreewith the assessment, plan and orders as documented by the resident. * Cecile Montero RN - 04/26/2023 4:51 AM EST RN called patients legal guardian Susan and informed her about patients seizure, condition and change of unit. Legal guardian said there is a magnet under his left armpit (magnet in a red bag) if it was swiped.RN stated she was told in report he [...] All questions and concerns answered by RN * Cecile Montero RN - 04/26/2023 3:59 AM EST Bedside RN and another RN heard grunting noises, both RN went down the pritchard to assess where it was coming from. Patient was actively seizing. Seizure started around 0314, a rapid response was called at 0316. BS was taken and was 96. Set of VS were taken all within normal range except HR was showingtachycardia with HR ranging from 110-115 once hooked up to monitor. Simran PRODUCTION WOOD CRAFTSMAN at bedside ordered 1 2mg dose of ativan and administered at 0322, patient continued to seize and become unresponsive. Another dose of ativan ordered, 4mg, administered at 0330. Patient continued to be unresponsive. About 0345 patient had a small break through by saying what a few times when bedside RN was calling name Neuro consult ordered. Patient being transferred to PCU and progressive status. * Mary Lynn [facility] - 04/25/2023 7:10 PM EST Transitions of Care Pharmacy Service Medication Review The patient's list of current home medications has been reviewed. Source(s) of information: med list from [facility] ([facility] PROVIDER ACTION REQUESTED Medications that need to be addressed by a physician/nurse practitioner: Medication Action Requested Home med list is ready for physician review Please feel free to call me with any questions about this encounter. Thank you. Mary Lynn [facility] Transitions of Care Pharmacy Service Medications Prior [...] 2 tablets by mouth daily Inulin-chromium picolinate 2gm- 100mcg chewable tab magnesium oxide (MAG-OX) 400 (240 Mg) MG tablet, Take 1 tablet by mouth daily meclizine (ANTIVERT) 25 MG tablet, Take 1 tablet by mouth daily polyethyl glycol-propyl glycol 0.4-0.3 % (SYSTANE) 0.4-0.3 % ophthalmic solution, Place 1 drop intoboth eyes nightly Systane nighttime ointment acetaminophen (TYLENOL) 500 MG tablet, Take 1 tablet by mouth every 6 hours as needed for Pain diazePAM (DIASTAT) 20 MG GEL, Place 20 mg rectally as needed (seizure activity>15 minutes). ondansetron (ZOFRAN-ODT) 4 MG disintegrating tablet, Take 1 tablet by mouth every 6 hours as neededfor Nausea or Vomiting levETIRAcetam (KEPPRA) 750 MG [...] 1 capsule by mouth 2 times daily * Beena Elam OT - 04/25/2023 11:46 AM EST Occupational Therapy Facility/Department: [facility] Occupational Therapy Initial Assessment Name: Amol Taylor : 1955 Date of Service: 04/25/2023 ARA [employer] reports patient is medically stable for [...] SBO (small bowel obstruction) (HCC), Seizures (HCC), Ve ntral hernia, and Vitamin D deficiency. Past Surgical [...] Patient has MRDD and [facility]. He has a history of bowel obstructions, and the staffnoticed signs of bowel obstruction and EMS was called. EMS took the patient to [facility]. Patient was recently discharged from [facility] with bowel obstruction, however family did not want patient to return to [facility] and arrangements were made for patient to be transferred [facility] for further management of small bowel obstruction that was seen on CT abdomen pelvis on . General surgery was consulted. There were also findings consistent with cystitis. Creat was 1.58 and he was noted to be tachycardic while ar [facility]. He was transferred to [facility] on Apr 24 when a bed became [...] and conversation w/ RN, pt is from [facility]. Pt able to report that he uses [...] place at EOB with Mod A x2 withB handheld assistance. Pt required MAX verbal cues for initiation, sequencing, slowing down, weightshifting, progression. Pt impulsive throughout session. Activity Tolerance [...] Pt has very poor safety awareness and isimpulsive, would recommend non therapy staff use Jackie Stedy. Hearing Hearing: Within functional limits Cognition Overall [...] prevention/call light use, OT POC, role of OTin acute care, benefits of being OOB, recommendations for discharge/AE Education Method: Verbal Barriers to Learning: Cognition Education Outcome: Continued education needed;Unable to demonstrate understanding;Unable to verbalize AM-PAC - ADL AM-PAC Daily Activity - [...] much help for eating meals?: A Little AM-[facility] Inpatient Daily Activity Raw Score: 12 AM-[facility] Inpatient ADL T-Scale Score : 30.6 ADL Inpatient CMS 0-100% Score: 66.57 ADL Inpatient CMS G-Code Modifier : CL Tinneti Score Goals Short Term Goals Time Frame for Short Term Goals: By discharge, pt to demo Short Term Goal 1: ADL transfers and functional mobility to Min A with use of AD and proper product safety coordinator. Short Term Goal 2: grooming task to [...] to assist with completion of ADL routine. Shelter Goals Shelter Goal 1: Pt/caregiver to be I with fall prevention edu, EC/WS tech, recommendations for discharge/AE, pressure relief/skin integrity edu with use of handouts as needed. Patient Goals Patient goals : Did not state! Therapy Time Individual Concurrent Group Co-treatment Time In 908 Time Out 0934 Minutes 25 Tx time : 10 min Co-treatment with PT warranted secondary to decreased safety and independence requiring 2 skilled therapy professionals to address individual discipline's goals. Beena ELAM OT * Shruthi Tovar, PT - 04/25/2023 9:19 AM EST Physical Therapy Facility/Department: [facility] Physical Therapy Initial Assessment Name: Amol Taylor : 1955 Date of Service: 04/25/2023 ARA [employer] reports patient is medically stable for [...] Patient has MRDD and [facility]. He has a history of bowel obstructions, and the staffnoticed signs of bowel obstruction and EMS was called. EMS took the patient to [facility]. Patient was recently discharged from [facility] with bowel obstruction, however family did not want patient to return to [facility] and arrangements were made for patient to be transferred [facility] for further management of small bowel obstruction that was seen on CT abdomen pelvis on . General surgery was consulted. There were also findings consistent with cystitis. Creat was 1.58 and he was noted to be tachycardic while ar [facility]. He was transferred to [facility] on Apr 24 when a bed became available. Patient Diagnosis(es): There were no encounter diagnoses. Past Medical History: has a past medical history of Arthritis, BPH (benign prostatic hyperplasia), Dysphagia, GERD (gastroesophageal reflux disease), Hearing loss, HLD (hyperlipidemia), Insomnia, MR (mental retardation), Periorbital cellulitis, SBO (small bowel obstruction) (HCC), Seizures (HCC), Ve ntral hernia, and Vitamin D deficiency. Past Surgical [...] Neuromuscular re-education, Home exercise program, Endurance training, Safetyeducation & training, Patient/Caregiver education & training, Equipment [...] and conversation w/ RN, pt is [facility]. Pt able to report that he uses [...] throughout bed mobility this date requiring cueing forinitiation, progression, and sequencing throughout. Pt denying any [...] sitting. Shruthi Tovar PT [facility] course Narrative* Carmen Kern DO - 04/28/2023 11:58 AM EST Images from the original note were not included. [facility] Office: [phone] Braydon Isbell DO, Eliazar Zuñiga DO, Carmen Kern DO, Bolivar Valdovinos DO, Evelyn Mitchell MD, Rita Pope MD, Tammy Cox MD, Hannah Mata MD, Dimas Fuentes MD, Vasyl Stanley MD, Reva Galindo MD, Mark Coleman DO, Rochelle Almanza MD, Aron Serna MD, Irwin Isbell DO, Livia Andino MD, Aman Hester DO, Kiarra Plasencia MD, Abby Arizmendi MD, Kerrie Mccoy MD, Kennedi Spicer MD, Houston Frye MD, Elder Scott MD, Christofer Spencer MD, Erinn Nunez MD, Raeann Rodriguez MD, Kelly Owusu MD, Yana Munoz DO, Paresh Baker DO, Shwetha Qureshi MD, Domenico Rae MD, Dorota Escobar, PATTERN PAINTER, Leonie Murillo, PATTERN PAINTER, Beau Mccoy, PATTERN PAINTER, Melany Cormier, [facility],Simran Villa, PATTERN PAINTER, Maureen Williamson, PATTERN PAINTER, Gloria Faust, PATTERN PAINTER, Toshia Cho, PATTERN PAINTER, Hattie Taylor, PATTERN PAINTER, Ellen Loja, PA-C, Karey Carrillo PA-C, Zaria Flores, PATTERN PAINTER, Shani Patrick, PATTERN PAINTER, Reva Vaughan, [facility], Corinne Stanton, [facility], Manda Powell, PATTERN PAINTER, Carleen Agarwal, PATTERN PAINTER, Sobeida Thornton, PATTERN PAINTER [facility] IN-PATIENT SERVICE [facility] Discharge Summary Patient ID: Amol Taylor : 1955 ACCOUNT: [id number] Patient's PCP: Carson Dior MD Admit Date: 04/24/2023 Discharge Date: 04/28/2023 Length of Stay: 4 Code Status: Full Code Admitting Physician: Bolivar Valdovinos DO Discharge Physician: Camren Kern DO Active Discharge Diagnoses: Hospital Problem [...] was admitted for the management of Small bowelobstruction (HCC) , presented to ER with Abdominal pain This is a 68-year-old male who is transferred to [facility] from an outside facility for complaint [...] had return of bowel function. His diet wasadvanced and has been tolerated. He will be [...] in some loops of small bowel mainly inthe left side of abdomen. Consultations: Consults: Final [...] in this patient's care. documented in this encounterB[facility] Discharge instructions* Discharge Instr - JOYCE* Ray Johnson RN - 04/28/2023 11:58 AM EST Continuity of Care Form Patient Name: Amol Taylor : 1955 Admit date: 04/24/2023 Discharge date: 04/29 Code Status Order: Full Code Advance Directives: Admitting Physician: Bolivar Valdovinos DO PCP: Carson Dior MD Discharging Nurse: Ray BHATT Discharging Hospital Unit/Room#: 1018/1018-02 Discharging Unit Emergency Contact: Extended Emergency Contact Information Primary Emergency Contact: Susan Smith [facility] Relation: Legal Guardian Secondary Emergency Contact: Eliazar [...] Code Small bowel obstruction (HCC) K56.609 Seizures ([facility]) Chronic R56.9 MR (mental retardation), severe F72 Epilepsy ([facility]) G40.909 SBO (small bowel obstruction) ([facility]) K56.609 Mild malnutrition ([facility]) E44.1 AFTAB (obstructive sleep apnea) G47.33 Epileptic seizures ([facility]) G40.909 Intellectual disability F79 S/P placement of VNS (vagus nerve stimulation) device Z96.89 Dysphagia R13.10 Elevated international normalized ratio (INR) R79.1 Nausea and vomiting R11.2 Seizure disorder ([facility]) G40.909 Seizure-like activity ([facility]) R56.9 Isolation/Infection: Isolation No Isolation Patient Infection Status None to display Nurse Assessment: Last Vital Signs: BP 116/71 Pulse (!) 49 Temp 97.9 F (36.6 C) (Oral) Resp 18 Ht 1.778 m (5'10 ) Wt 72.3 kg (159 lb 6.3 oz) SpO2 97% BMI 22.87 kg/m Last documented pain score (0-10 scale): Last Weight: Wt Readings from Last 1 Encounters: 04/27/23 72.3 kg (159 lb 6.3 oz) Mental Status: alert IV Access: - None Nursing Mobility/ADLs: Walking Assisted Transfer Assisted Bathing Assisted Dressing Assisted Toileting Assisted Feeding Assisted Press Loader Dependent Med Delivery whole Wound Care Documentation [...] bench, and bedside commode Other Treatments: Per [facility] Patient's personal belongings (please select all that are sent with patient): None RN SIGNATURE: CASE MANAGEMENT/SOCIAL WORK SECTION Inpatient Status Date: 04/24 Readmission Risk Assessment Score: Readmission Risk Risk of Unplanned Readmission: 24 Discharging to Facility/ Agency Name: [facility] Address: [address] [place] [address] -- on weekend call berna Fax: will send with patient Dialysis Facility (if applicable) Name: Address: Dialysis Schedule: Phone: Fax: Environmental Technical Officer/Staff Certified Nurse Midwife signature: PHYSICIAN SECTION Prognosis: Fair Condition at [...] in H&P PHYSICIAN SIGNATURE: documented in this encounterB[facility] Miscellaneous Notes* Discharge Planning Note - Ellen Montes RN - 04/20/2023 8:24 AM EST DISCHARGE PLANNING NOTE Case and chart reviewed by CN. Discharge order in place from yesterday. CN spoke with Ruthann Lee, pt is scheduled to be picked up at 9 am. CN called and spoke with Korina [facility] leader to inform her of this change. CN called and updated guardian Susan, as well. Discharge Plan remains: return to [facility]. CN will continue to follow and is available should any further needs arise. - Ellen Montes RN 04/20/23 8:25 AM * Plan of Care - Martina Linton RN - 04/20/2023 8:07 AM EST Problem: Pain Goal: Patient goal is pain score less than 4, able to rest, and participant in treatment plan as appropriate Description: INTERVENTIONS: 1. Encourage patient or legal mortician supplies sales representative to report early pain and ask [...] per policy 9. Teach patient or legal mortician supplies sales representative interventions for comforting Outcome: Progressing Note: [...] at the bedside 7. Instruct patient/ patient mortician supplies sales representative about use of safety devices 8. Include patient/ patient mortician supplies sales representative in decisions related to safety Outcome: [...] hygiene technique 7. Identify and instruct patient/patient mortician supplies sales representative in use of appropriate isolation precautionsfor identified infection/symptoms 8. Provide and discuss with patient/patient mortician supplies sales representative on educational MDRO sheet 9. Encourage and monitor nutritional status daily and consult movie shot cameraman if indicated 10. Implement neutropenic guidelines as [...] nutritional intake Problem: Knowledge Deficit Goal: Patient/patient mortician supplies sales representative demonstrates understanding of disease process, treatment plan,medications, and discharge instructions Description: INTERVENTIONS 1. Complete [...] supplement as ordered 13. Collaborate with clinical movie shot cameraman 14. Include patient/ patient's mortician supplies sales representative in decisions related to nutrition Outcome: Progressing Note: Evaluation of progress towards goal: monitoring patient's nutritional intake, monitoring weight, patient is able to feed self, monitoring for s/s of hypoglycemia and hyperglycemia, no nausea orvomiting Problem: Urinary Incontinence Goal: Perineal skin integrity [...] goal: skin is kept clean and dry, gina care provided as needed, privacy provided, genitourinary system WNL Problem: Moderate - High Risk Fall Score Description: [place] Fall Score of =/> 25 or indicated by [facility] Assessment Goal: Patient should be free from fall Description: Interventions: 1. [place] to environment 2. Hourly rounds addressing the [...] non-skid footwear 11. Teach patient and patient mortician supplies sales representative to maintain environment for safety and [...] (cane, walker) within reach 19. Request patient mortician supplies sales representative bring adaptive equipment/mobility aids from home or obtain and provide as needed 20. Consult pharmacy regarding effects of med's affecting mobility, cognition, and alternatives 21. Obtain physician order for PT if risk factors associated with mobility are present 22. Obtain physician order for OT as appropriate 23. Utilize diversional activities 24. Educate patient and patient mortician supplies sales representative how to maintain a safe environment during visitationtimes (notify nurse prior to leaving bedside) 25. Consider appropriateness of medical or non-lead medical technologist 26. Set up voiding schedule as appropriate [...] Progressing Note: Evaluation of progress towards goal: * Plan of Care - Mendy Gonzáles RN - 04/19/2023 11:11 PM EST Problem: Pain Goal: Patient goal is pain score less than 4, able to rest, and participant in treatment plan as appropriate Description: INTERVENTIONS: 1. Encourage patient or legal mortician supplies sales representative to report early pain and ask [...] per policy 9. Teach patient or legal mortician supplies sales representative interventions for comforting Outcome: Progressing Note: [...] at the bedside 7. Instruct patient/ patient mortician supplies sales representative about use of safety devices 8. Include patient/ patient mortician supplies sales representative in decisions related to safety Outcome: Progressing Note: Evaluation of progress towards goal: patient assessed for risk for falls, environment safe and maintained, hand hygiene complete, will continue to monitor Problem: Moderate - High Risk Fall Score Description: [place] Fall Score of =/> 25 or indicated by [facility] Assessment Goal: Patient should be free from fall Description: Interventions: 1. [place] to environment 2. Hourly rounds addressing the [...] non-skid footwear 11. Teach patient and patient mortician supplies sales representative to maintain environment for safety and [...] (cane, walker) within reach 19. Request patient mortician supplies sales representative bring adaptive equipment/mobility aids from home or obtain and provide as needed 20. Consult pharmacy regarding effects of med's affecting mobility, cognition, and alternatives 21. Obtain physician order for PT if risk factors associated with mobility are present 22. Obtain physician order for OT as appropriate 23. Utilize diversional activities 24. Educate patient and patient mortician supplies sales representative how to maintain a safe environment during visitationtimes (notify nurse prior to leaving bedside) 25. Consider appropriateness of medical or non-lead medical technologist 26. Set up voiding schedule as appropriate (every 2 hours) Outcome: Progressing Note: Evaluation of progress towards goal: patient oriented to environment, area clear of hazards, equipment within reach, bed in low and locked position, will continue to monitor * Plan of Care - Martina Linton RN - 04/19/2023 11:38 AM EST Problem: Pain Goal: Patient goal is pain score less than 4, able to rest, and participant in treatment plan as appropriate Description: INTERVENTIONS: 1. Encourage patient or legal mortician supplies sales representative to report early pain and ask [...] per policy 9. Teach patient or legal mortician supplies sales representative interventions for comforting Outcome: Progressing Note: [...] at the bedside 7. Instruct patient/ patient mortician supplies sales representative about use of safety devices 8. Include patient/ patient mortician supplies sales representative in decisions related to safety Outcome: [...] hygiene technique 7. Identify and instruct patient/patient mortician supplies sales representative in use of appropriate isolation precautionsfor identified infection/symptoms 8. Provide and discuss with patient/patient mortician supplies sales representative on educational MDRO sheet 9. Encourage and monitor nutritional status daily and consult movie shot cameraman if indicated 10. Implement neutropenic guidelines as [...] nutritional intake Problem: Knowledge Deficit Goal: Patient/patient mortician supplies sales representative demonstrates understanding of disease process, treatment plan,medications, and discharge instructions Description: INTERVENTIONS 1. Complete [...] supplement as ordered 13. Collaborate with clinical movie shot cameraman 14. Include patient/ patient's mortician supplies sales representative in decisions related to nutrition Outcome: Progressing Note: Evaluation of progress towards goal: monitoring patient's nutritional intake, monitoring weight, patient is able to feed self, monitoring for s/s of hypoglycemia and hyperglycemia, no nausea orvomiting Problem: Urinary Incontinence Goal: Perineal skin integrity [...] goal: skin is kept clean and dry, gina care provided as needed, privacy provided, genitourinary system WNL Problem: Moderate - High Risk Fall Score Description: [place] Fall Score of =/> 25 or indicated by [facility] Assessment Goal: Patient should be free from fall Description: Interventions: 1. [place] to environment 2. Hourly rounds addressing the [...] non-skid footwear 11. Teach patient and patient mortician supplies sales representative to maintain environment for safety and [...] (cane, walker) within reach 19. Request patient mortician supplies sales representative bring adaptive equipment/mobility aids from home or obtain and provide as needed 20. Consult pharmacy regarding effects of med's affecting mobility, cognition, and alternatives 21. Obtain physician order for PT if risk factors associated with mobility are present 22. Obtain physician order for OT as appropriate 23. Utilize diversional activities 24. Educate patient and patient mortician supplies sales representative how to maintain a safe environment during visitationtimes (notify nurse prior to leaving bedside) 25. Consider appropriateness of medical or non-lead medical technologist 26. Set up voiding schedule as appropriate [...] deep breathing, encouraged use of incentive spirometer * Discharge Planning Note - Daiana Randall RN - 04/19/2023 10:19 AM EST DISCHARGE PLANNING NOTE BLS to [facility] set for 2pm. CN notified Guardian, Susan Smith and caregiver at [facility], Korina of dc. DC packet prepared. CN also notified RN and attending of dc today.Daiana Randall RN CRF faxed to [facility] and placed in DC packet.Daiana Randall RN * Discharge Planning Note - Ayah Montenegro - 04/19/2023 10:00 AM EST DISCHARGE PLANNING NOTE Scheduled a BLS transport [facility] 04/19/2023 at 1400 via PTN. Spoke to Andreas. * Plan of Care - Melany Castellanos RN - 04/18/2023 11:35 PM EST Problem: Pain Goal: Patient goal is pain score less than 4, able to rest, and participant in treatment plan as appropriate Description: INTERVENTIONS: 1. Encourage patient or legal mortician supplies sales representative to report early pain and ask [...] per policy 9. Teach patient or legal mortician supplies sales representative interventions for comforting Note: Evaluation of progress towards goal: Patient's pain is assessed and documented with appropriate pain scale. Patient does not report pain thus far, pt encouraged to let RN know if she starts to develop pain. * Discharge Planning Note - KRYSTIN Irvin - 04/18/2023 3:03 PM EST DISCHARGE PLANNING NOTE Case discussed in daily transition rounds and chart reviewed by LEO. Barriers to discharge include diet tolerance. Discharge Plan remains: Return to [facility] with home care. Korina will be point of contact at the [facility] tomorrow. Sister, Susan, and [facility] caregiver, Korina, ask for patient to wear his helmet during wheelchair transport. SW asked for Edilma Eastman MD to write discharge order for home care, as [facility] will ask for the [facility] to send their PT, OT, and ST to the [facility] to work with patient, if ordered. Sister says she is ordering the speech recommended Provale cup from [facility] today. SW will continue to follow and is available should any further needs arise. - KRYSTIN IRVIN 04/18/23 3:03 PM * Discharge Planning Note - Paty Balderas RN - 04/18/2023 12:35 PM EST DISCHARGE PLANNING NOTE CN spoke with Andrei at patient [facility] to let them know patient may return tomorrow based on howhe tolerates nutrition plan today. Patient will need transport back to facility. - Paty Balderas RN 04/18/23 12:37 PM * PT/OT/REGULATORY ADMINISTRATOR - Diana Knight CCC-REGULATORY ADMINISTRATOR - 04/18/2023 10:41 AM EST Speech Therapy Dysphagia Treatment Note Assessment: Current [...] as well as pharyngeal residue collects in thatregion. The osteophyte is positioned close to/same level [...] with ARA Paz; Edilma Eastman MD, and manager produce Tonja Briones. Plan Monitor closely for s/s aspiration, continue plan of care Speech Therapy Care Plan Speech Therapy Care Plan (Active) Template: ST - Dysphagia Problem: Swallowing Dates: Start: 04/16/23 Disciplines: REGULATORY ADMINISTRATOR Goal: LTG: Patient will tolerate least restrictive diet recommended by REGULATORY ADMINISTRATOR without signs and symptoms of aspiration 90% of the time Dates: Start: 04/16/23 Expected End: 05/15/23 Disciplines: REGULATORY ADMINISTRATOR Outcomes Date/Time User Outcome 04/18/23 1043 CONTRERAS Chi Progressing Goal Note filed on 04/18/23 104 by CONTRERAS Chi Please see Progress Note for details. Goal: STG: Patient will complete safety strategies with minimal assistance during PO intake 90% of the time Dates: Start: 04/16/23 Expected End: 05/15/23 Disciplines: REGULATORY ADMINISTRATOR Speech Therapy Care Plan (Resolved) There are no resolved problems. Principal Problem: SBO (small bowel obstruction) ([facility]) * Plan of Care - Jackson Giles RN - 04/18/2023 9:24 AM EST Problem: Discharge Planning Goal: Discharge to post-acute [...] to determine SNF vs return back to [facility]. Will continue to monitor. Additional Comments: * Plan of Care - Melany Castellanos RN - 04/18/2023 4:57 AM EST Problem: Pain Goal: Patient goal is pain score less than 4, able to rest, and participant in treatment plan as appropriate Description: INTERVENTIONS: 1. Encourage patient or legal mortician supplies sales representative to report early pain and ask [...] per policy 9. Teach patient or legal mortician supplies sales representative interventions for comforting Note: Evaluation of progress towards goal: Patient's pain is assessed and documented with appropriate pain scale. Patient does not report pain thus far, pt encouraged to let RN know if she starts to develop pain. * Plan of Care - Edilma Beasley RN - 04/17/2023 10:17 AM EST Problem: Pain Goal: Patient goal is pain score less than 4, able to rest, and participant in treatment plan as appropriate Description: INTERVENTIONS: 1. Encourage patient or legal mortician supplies sales representative to report early pain and ask [...] per policy 9. Teach patient or legal mortician supplies sales representative interventions for comforting Outcome: Progressing Note: [...] at the bedside 7. Instruct patient/ patient mortician supplies sales representative about use of safety devices 8. Include patient/ patient mortician supplies sales representative in decisions related to safety Outcome: [...] hygiene technique 7. Identify and instruct patient/patient mortician supplies sales representative in use of appropriate isolation precautionsfor identified infection/symptoms 8. Provide and discuss with patient/patient mortician supplies sales representative on educational MDRO sheet 9. Encourage and monitor nutritional status daily and consult movie shot cameraman if indicated 10. Implement neutropenic guidelines as needed 11. Review exposure to history of communicable disease and recent travel history on admission 12. Encourage annual influenza vaccine 13. Encourage pneumonia vaccine Outcome: Progressing Note: Evaluation of progress towards goal: Pt monitored for signs and symptoms of infection. Pt labs assessed for indications of infection. Medication administered per order. Appropriate PPE utilizedwhile performing patient care. Problem: Knowledge Deficit Goal: Patient/patient mortician supplies sales representative demonstrates understanding of disease process, treatment plan,medications, and discharge instructions Description: INTERVENTIONS 1. Complete [...] plan correct. Pt will be discharged to [facility] when appropriate for discharge and orders placed. * Discharge Planning Note - Paty Balderas RN - 04/17/2023 10:16 AM EST DISCHARGE PLANNING NOTE Per RN during discharge transition rounds, barriers to discharge are: nutrition plan, possible PEG. Discharge Plan: SNF vs back to [facility] depending on clinical course. [employer] Supervisor will continue to follow for any discharge needs. - Paty Balderas RN 04/17/23 10:16 AM * Plan of Care - Jackie Jewell RN - 04/16/2023 7:40 PM EST Problem: Pain Goal: Patient goal is pain score less than 4, able to rest, and participant in treatment plan as appropriate Description: INTERVENTIONS: 1. Encourage patient or legal mortician supplies sales representative to report early pain and ask for pain medicine when needed 2. Assess pain using appropriate pain scale and include the scale used when documenting 3. Administer analgesics based on type and severity of pain and evaluate response within appropriate time frame 4. Implement non-pharmacological measures as appropriate and evaluate response 8. Reassess pain per policy 9. Teach patient or legal mortician supplies sales representative interventions for comforting Outcome: Progressing Note: [...] at the bedside 7. Instruct patient/ patient mortician supplies sales representative about use of safety devices 8. Include patient/ patient mortician supplies sales representative in decisions related to safety Outcome: [...] goal: patient on room air. Spo2 wnl * Plan of Care - Gonzales La MD - 04/16/2023 4:23 PM EST I had a significant discussion with POA [...] decision. Gonzales La MD [facility] * Discharge Planning Note - KRYSTIN Ivrin - 04/16/2023 10:19 AM EST DISCHARGE PLANNING NOTE Case discussed in daily transition rounds and chart reviewed by SW. Barriers to discharge include VSS, alf nutrition plan. Discharge Plan remains: [facility], pending acceptance. SNF will need auth. SW will continue to follow and is available should any further needs arise. - KRYSTIN IRVIN 04/16/23 10:19 AM * PT/OT/REGULATORY ADMINISTRATOR - Lili Tejeda CCC-TONIO - 04/16/2023 9:53 AM EST Speech Therapy Videofluoroscopic Swallow Study Evaluation Educated [...] for all PO intake (including medication), Patient toremain upright 15 minutes after meals, Supervise all PO intake, Assist with feeding Medications: In applesauce/puree, Crushed Referrals: Dysphagia therapy Discharge Recommendations: Other (comment) (continue ST services) Plan Frequency: 2-3days/week Duration: until discharge Treatments/Modalities: Safety strategies Need for skilled Speech Language Pathology Services to address deficits in feeding/swallowing due to a status decline resulting from small bowel obstruction Prognosis Services: Skilled REGULATORY ADMINISTRATOR services to address above deficits Prognosis/Potential: Good [...] Dysphagia Problem: Swallowing Dates: Start: 04/16/23 Disciplines: REGULATORY ADMINISTRATOR Goal: LTG: Patient will tolerate least restrictive diet recommended by REGULATORY ADMINISTRATOR without signs and symptoms of aspiration 90% of the time Dates: Start: 04/16/23 Expected End: 05/15/23 Disciplines: REGULATORY ADMINISTRATOR Goal: STG: Patient will complete safety strategies with minimal assistance during PO intake 90% of the time Dates: Start: 04/16/23 Expected End: 05/15/23 Disciplines: REGULATORY ADMINISTRATOR Speech Therapy Care Plan (Resolved) There are no resolved problems. Principal Problem: SBO (small bowel obstruction) ([facility]) * Plan of Care - Lola Boucher RN - 04/16/2023 9:45 AM EST Problem: Pain Goal: Patient goal is pain score less than 4, able to rest, and participant in treatment plan as appropriate Description: INTERVENTIONS: 1. Encourage patient or legal mortician supplies sales representative to report early pain and ask [...] per policy 9. Teach patient or legal mortician supplies sales representative interventions for comforting Outcome: Progressing Note: [...] at the bedside 7. Instruct patient/ patient mortician supplies sales representative about use of safety devices 8. Include patient/ patient mortician supplies sales representative in decisions related to safety Outcome: [...] hygiene technique 7. Identify and instruct patient/patient mortician supplies sales representative in use of appropriate isolation precautionsfor identified infection/symptoms 8. Provide and discuss with patient/patient mortician supplies sales representative on educational MDRO sheet 9. Encourage and monitor nutritional status daily and consult movie shot cameraman if indicated 10. Implement neutropenic guidelines as needed 11. Review exposure to history of communicable disease and recent travel history on admission 12. Encourage annual influenza vaccine 13. Encourage pneumonia vaccine Outcome: Progressing Note: Evaluation of progress towards goal: pt remains free from infection, Problem: Knowledge Deficit Goal: Patient/patient mortician supplies sales representative demonstrates understanding of disease process, treatment plan,medications, and discharge instructions Description: INTERVENTIONS 1. Complete [...] Score of =/> 25 or indicated by [facility] Assessment Goal: Patient should be free from fall Description: Interventions: 1. [place] to environment 2. Hourly rounds addressing the [...] non-skid footwear 11. Teach patient and patient mortician supplies sales representative to maintain environment for safety and [...] (cane, walker) within reach 19. Request patient mortician supplies sales representative bring adaptive equipment/mobility aids from home or obtain and provide as needed 20. Consult pharmacy regarding effects of med's affecting mobility, cognition, and alternatives 21. Obtain physician order for PT if risk factors associated with mobility are present 22. Obtain physician order for OT as appropriate 23. Utilize diversional activities 24. Educate patient and patient mortician supplies sales representative how to maintain a safe environment during visitationtimes (notify nurse prior to leaving bedside) 25. Consider appropriateness of medical or non-lead medical technologist 26. Set up voiding schedule as appropriate (every 2 hours) Outcome: Progressing Note: Evaluation of progress towards goal: pt remains free from falls, call light within reach, nonskid slippers worn, adequate lighting provided, hourly rounds complete, bed in lowest locked position, encouraged to call for help * Plan of Care - Lisha Holman RN - 04/16/2023 4:01 AM EST Problem: Pain Goal: Patient goal is pain score less than 4, able to rest, and participant in treatment plan as appropriate Description: INTERVENTIONS: 1. Encourage patient or legal mortician supplies sales representative to report early pain and ask [...] per policy 9. Teach patient or legal mortician supplies sales representative interventions for comforting Outcome: Progressing Note: [...] at the bedside 7. Instruct patient/ patient mortician supplies sales representative about use of safety devices 8. Include patient/ patient mortician supplies sales representative in decisions related to safety Outcome: Progressing Note: Evaluation of progress towards goal: patient remains free from injury, clutter removed from walkways and call light within reach, bed in low position and locked, non skid footwear on. Continue to monitor and educate on safety precautions Problem: Knowledge Deficit Goal: Patient/patient mortician supplies sales representative demonstrates understanding of disease process, treatment plan,medications, and discharge instructions Description: INTERVENTIONS 1. Complete learning assessment and assess knowledge base 2. Provide teaching at level of understanding 3. Provide teaching via preferred learning method(s) Outcome: Progressing Note: Evaluation of progress towards goal: patient educated on disease process and daily care plan,questions answered and patient states understanding. Continue to [...] and skin protection as ordered. Encourage repositioning every2 hours and change soiled linens. * Plan of Care - Martina Linton RN - 04/15/2023 12:36 PM EST Problem: Pain Goal: Patient goal is pain score less than 4, able to rest, and participant in treatment plan as appropriate Description: INTERVENTIONS: 1. Encourage patient or legal mortician supplies sales representative to report early pain and ask [...] per policy 9. Teach patient or legal mortician supplies sales representative interventions for comforting Outcome: Progressing Note: [...] at the bedside 7. Instruct patient/ patient mortician supplies sales representative about use of safety devices 8. Include patient/ patient mortician supplies sales representative in decisions related to safety Outcome: [...] hygiene technique 7. Identify and instruct patient/patient mortician supplies sales representative in use of appropriate isolation precautionsfor identified infection/symptoms 8. Provide and discuss with patient/patient mortician supplies sales representative on educational MDRO sheet 9. Encourage and monitor nutritional status daily and consult movie shot cameraman if indicated 10. Implement neutropenic guidelines as [...] nutritional intake Problem: Knowledge Deficit Goal: Patient/patient mortician supplies sales representative demonstrates understanding of disease process, treatment plan,medications, and discharge instructions Description: INTERVENTIONS 1. Complete [...] supplement as ordered 13. Collaborate with clinical movie shot cameraman 14. Include patient/ patient's mortician supplies sales representative in decisions related to nutrition Outcome: Progressing Note: Evaluation of progress towards goal: monitoring patient's nutritional intake, monitoring weight, patient is able to feed self, monitoring for s/s of hypoglycemia and hyperglycemia, no nausea orvomiting Problem: Urinary Incontinence Goal: Perineal skin integrity [...] goal: skin is kept clean and dry, gina care provided as needed, privacy provided, genitourinary system WNL Problem: Moderate - High Risk Fall Score Description: [place] Fall Score of =/> 25 or indicated by [facility] Assessment Goal: Patient should be free from fall Description: Interventions: 1. [place] to environment 2. Hourly rounds addressing the [...] non-skid footwear 11. Teach patient and patient mortician supplies sales representative to maintain environment for safety and [...] (cane, walker) within reach 19. Request patient mortician supplies sales representative bring adaptive equipment/mobility aids from home or obtain and provide as needed 20. Consult pharmacy regarding effects of med's affecting mobility, cognition, and alternatives 21. Obtain physician order for PT if risk factors associated with mobility are present 22. Obtain physician order for OT as appropriate 23. Utilize diversional activities 24. Educate patient and patient mortician supplies sales representative how to maintain a safe environment during visitationtimes (notify nurse prior to leaving bedside) 25. Consider appropriateness of medical or non-lead medical technologist 26. Set up voiding schedule as appropriate [...] O2 sat, instructed on cough and deep breathingand use of IS, encouraged fluids, HOB regulated by patient at least 30 degrees to aid with ventilation, admnistering meds as ordered * Plan of Care - Libra Finney RN - 04/14/2023 10:55 PM EST Problem: Pain Goal: Patient goal is pain score less than 4, able to rest, and participant in treatment plan as appropriate Description: INTERVENTIONS: 1. Encourage patient or legal mortician supplies sales representative to report early pain and ask [...] per policy 9. Teach patient or legal mortician supplies sales representative interventions for comforting Outcome: Progressing Note: Evaluation of progress towards goal: Pt remains free from falls and injury, medicated using 5rights, hand hygiene in and out of room, specimens labeled at bedside * Plan of Care - Martina Linton RN - 04/14/2023 4:08 PM EST Problem: Pain Goal: Patient goal is pain score less than 4, able to rest, and participant in treatment plan as appropriate Description: INTERVENTIONS: 1. Encourage patient or legal mortician supplies sales representative to report early pain and ask [...] per policy 9. Teach patient or legal mortician supplies sales representative interventions for comforting Outcome: Progressing Note: [...] at the bedside 7. Instruct patient/ patient mortician supplies sales representative about use of safety devices 8. Include patient/ patient mortician supplies sales representative in decisions related to safety Outcome: [...] hygiene technique 7. Identify and instruct patient/patient mortician supplies sales representative in use of appropriate isolation precautionsfor identified infection/symptoms 8. Provide and discuss with patient/patient mortician supplies sales representative on educational MDRO sheet 9. Encourage and monitor nutritional status daily and consult movie shot cameraman if indicated 10. Implement neutropenic guidelines as [...] nutritional intake Problem: Knowledge Deficit Goal: Patient/patient mortician supplies sales representative demonstrates understanding of disease process, treatment plan,medications, and discharge instructions Description: INTERVENTIONS 1. Complete [...] supplement as ordered 13. Collaborate with clinical movie shot cameraman 14. Include patient/ patient's mortician supplies sales representative in decisions related to nutrition Outcome: Progressing Note: Evaluation of progress towards goal: monitoring patient's nutritional intake, monitoring weight, patient is able to feed self, monitoring for s/s of hypoglycemia and hyperglycemia, no nausea orvomiting Problem: Urinary Incontinence Goal: Perineal skin integrity [...] goal: skin is kept clean and dry, gina care provided as needed, privacy provided, genitourinary system WNL Problem: Moderate - High Risk Fall Score Description: [place] Fall Score of =/> 25 or indicated by [facility] Assessment Goal: Patient should be free from fall Description: Interventions: 1. [place] to environment 2. Hourly rounds addressing the [...] non-skid footwear 11. Teach patient and patient mortician supplies sales representative to maintain environment for safety and [...] (cane, walker) within reach 19. Request patient mortician supplies sales representative bring adaptive equipment/mobility aids from home or obtain and provide as needed 20. Consult pharmacy regarding effects of med's affecting mobility, cognition, and alternatives 21. Obtain physician order for PT if risk factors associated with mobility are present 22. Obtain physician order for OT as appropriate 23. Utilize diversional activities 24. Educate patient and patient mortician supplies sales representative how to maintain a safe environment during visitationtimes (notify nurse prior to leaving bedside) 25. Consider appropriateness of medical or non-lead medical technologist 26. Set up voiding schedule as appropriate [...] deep breathing, encouraged use of incentive spirometer * Plan of Care - Libra Finney RN - 04/14/2023 2:08 AM EST Problem: Pain Goal: Patient goal is pain score less than 4, able to rest, and participant in treatment plan as appropriate Description: INTERVENTIONS: 1. Encourage patient or legal mortician supplies sales representative to report early pain and ask [...] per policy 9. Teach patient or legal mortician supplies sales representative interventions for comforting Outcome: Progressing Note: Evaluation of progress towards goal: Patient's pain is assessed and documented with appropriate pain scale. Patient's pain is relieved with PRN medications. Will continue to assess and monitor per hospital policy. * Discharge Planning Note - Violet Bush - 04/13/2023 12:51 PM EST DISCHARGE PLANNING NOTE Referral sent to [facility], [facility], [facility] in [place] (P# ; F# ) * Significant Event - Daniel Blackwell MD - 04/13/2023 12:47 PM EST Neurology was asked to assess the patient's VNS stimulator due to concerns that it may be causing the patient's bradycardia. The VNS stimulator was interrogated and found to have no faults or errors.The patient does have an Autostimulation program built in. Due to this concern the patient's primary neurologist who manages the VNS, Dr. Shawnee Butler, was reached out to for further clarification. She is a part of [facility] (#[phone]) and they were contacted and state that [...] brief event where the VNS was turned onand once off it would have to be manually turned on again. Ultimately, neurology does not believe the VNS is contributing to the patient's bradycardia. Associated attestation - Ramirez Calvo MD - 04/13/2023 4:30 PM EST Discussed plan of care with resident and agree with the above. * Query Response - Gonzales La MD - 04/13/2023 8:54 AM EST Query Response Note CDI QUERY TEXT: Clarification [...] regarding low platelets, could you please indicate ifthe patient has any additional related diagnoses or [...] deficiency, anemia of chronic disease, B12 deficiency per04/12 progress note. Please document any of the above specifications within the progress notes and/or discharge summary or as response to this query. The Clinical Documentation Integrity (CDI) staff are working remotely.If you have any questions or concerns regarding this query, please feel free to contact me. Lola FRANCISCO, RN Clinical Documentation Inspector [employer]ased [employer] [facility] Clinical Revenue Cycle Email: [email or web address] The patient's Clinical Indicators include: See Query. CDI RESPONSE TEXT: Thrombocytopenia Query created by: Floresita Arroyo on 04/13/2023 8:24 AM Electronically signed by: Gonzales La MD 04/13/2023 8:51 AM * Plan of Care - Shawnee Thayer RN - 04/13/2023 8:16 AM EST Problem: Pain Goal: Patient goal is pain score less than 4, able to rest, and participant in treatment plan as appropriate Description: INTERVENTIONS: 1. Encourage patient or legal mortician supplies sales representative to report early pain and ask [...] per policy 9. Teach patient or legal mortician supplies sales representative interventions for comforting Outcome: Progressing Note: [...] at the bedside 7. Instruct patient/ patient mortician supplies sales representative about use of safety devices 8. Include patient/ patient mortician supplies sales representative in decisions related to safety Outcome: [...] hygiene technique 7. Identify and instruct patient/patient mortician supplies sales representative in use of appropriate isolation precautionsfor identified infection/symptoms 8. Provide and discuss with patient/patient mortician supplies sales representative on educational MDRO sheet 9. Encourage and monitor nutritional status daily and consult movie shot cameraman if indicated 10. Implement neutropenic guidelines as needed 11. Review exposure to history of communicable disease and recent travel history on admission 12. Encourage annual influenza vaccine 13. Encourage pneumonia vaccine Outcome: Progressing Note: Evaluation of progress towards goal: Nurse is assessing lines and drains for infection, usingrequired precaution to prevent infection and using cleaning techniques. Problem: Knowledge Deficit Goal: Patient/patient mortician supplies sales representative demonstrates understanding of disease process, treatment plan,medications, and discharge instructions Description: INTERVENTIONS 1. Complete learning assessment and assess knowledge base 2. Provide teaching at level of understanding 3. Provide teaching via preferred learning method(s) Outcome: Progressing Note: Evaluation of progress towards goal: Patient is provided with education about new medications, procedures interventions. Patient listens to nursing education and understands the material, it isreinforced when patient needs further education. Patient asks questions when needed and is asked torepeat back information to reinforce learning. Problem: Discharge [...] this time, plan to dc back to [facility]. Additional Comments: * Plan of Care - Libra Finney RN - 04/12/2023 11:15 PM EST Problem: Safety Goal: Patient will be injury free during hospitalization Description: INTERVENTIONS: 1. Assess patient's risk for falls and implement fall prevention plan of care per policy 2. Provide and maintain a safe environment 3. Proper use of double Identifiers 4. Medication administration using the 5 rights 5. Hand hygiene 6. Specimens are labeled at the bedside 7. Instruct patient/ patient mortician supplies sales representative about use of safety devices 8. Include patient/ patient mortician supplies sales representative in decisions related to safety Outcome: Progressing Note: Evaluation of progress towards goal: Pt remains free from falls and injury, medicated using 5rights, hand hygiene in and out of room, specimens labeled at bedside * Discharge Planning Note - Paty Balderas RN - 04/12/2023 11:35 AM EST DISCHARGE PLANNING NOTE Per RN during discharge transition rounds, barriers to discharge are: failed swallow study, nutrition plan, possible hospice. Discharge Plan: TBD. Plan for now is to return to [facility]. [employer] Supervisor will continue to follow for any discharge needs. - Paty Balderas RN 04/12/23 11:36 AM * Significant Event - Larry Henderson APRN-PATTERN PAINTER - 04/12/2023 10:30 AM EST Images from the original note were not included. [facility] [facility] [address] [place] [address] SIGNIFICANT EVENT Amol Taylor Attempted to see [...] mmol/L 112* 112* 110* CO2 mmol/L 24 24 BUN mg/dL 17 14 17 [...] Please call with any questions or concerns Larry Henderson, RAISA-PATTERN PAINTER This note was completed using a voice driller and broacher system. Every effort was made to ensure accuracy. However, inadvertent computerized driller and broacher errors may be present. RALPH Piper 04/12/23 1032 * PT/OT/REGULATORY ADMINISTRATOR - Lili Tejeda CCC-REGULATORY ADMINISTRATOR - 04/12/2023 9:26 AM EST Speech Therapy Videofluoroscopic Swallow Study Evaluation Educated [...] from small bowel obstruction Prognosis Services: Skilled REGULATORY ADMINISTRATOR services to address above deficits Prognosis/Potential: Good Considerations: Cognition, Co-morbidities, Previous level of function Assessment Baseline Assessment Additional Testing Results: Chest X-Ray Setting Prior to Admission: [facility] Respiratory Status: Room Air Behavior/Cognition: Alert, Cooperative [...] problems. Principal Problem: SBO (small bowel obstruction) ([facility]) * Plan of Care - Niurka Reyna RN - 04/12/2023 8:09 AM EST Problem: Pain Goal: Patient goal is pain score less than 4, able to rest, and participant in treatment plan as appropriate Description: INTERVENTIONS: 1. Encourage patient or legal mortician supplies sales representative to report early pain and ask [...] per policy 9. Teach patient or legal mortician supplies sales representative interventions for comforting Outcome: Progressing Note: [...] at the bedside 7. Instruct patient/ patient mortician supplies sales representative about use of safety devices 8. Include patient/ patient mortician supplies sales representative in decisions related to safety Outcome: Progressing Note: Evaluation of progress towards goal: Pt remains free from falls and injury, medicated using 5rights, hand hygiene in and out of room, [...] hygiene technique 7. Identify and instruct patient/patient mortician supplies sales representative in use of appropriate isolation precautionsfor identified infection/symptoms 8. Provide and discuss with patient/patient mortician supplies sales representative on educational MDRO sheet 9. Encourage and monitor nutritional status daily and consult movie shot cameraman if indicated 10. Implement neutropenic guidelines as needed 11. Review exposure to history of communicable disease and recent travel history on admission 12. Encourage annual influenza vaccine 13. Encourage pneumonia vaccine Outcome: Progressing Note: Evaluation of progress towards goal: Afebrile, labs and VS monitored Problem: Knowledge Deficit Goal: Patient/patient mortician supplies sales representative demonstrates understanding of disease process, treatment plan,medications, and discharge instructions Description: INTERVENTIONS 1. Complete [...] to achieve discharge goals of returning to [facility]. * Plan of Care - Libra Finney RN - 04/11/2023 8:49 PM EST Problem: Safety Goal: Patient will be injury free during hospitalization Description: INTERVENTIONS: 1. Assess patient's risk for falls and implement fall prevention plan of care per policy 2. Provide and maintain a safe environment 3. Proper use of double Identifiers 4. Medication administration using the 5 rights 5. Hand hygiene 6. Specimens are labeled at the bedside 7. Instruct patient/ patient mortician supplies sales representative about use of safety devices 8. Include patient/ patient mortician supplies sales representative in decisions related to safety Outcome: Progressing Note: Evaluation of progress towards goal: Pt remains free from falls and injury, medicated using 5rights, hand hygiene in and out of room, specimens labeled at bedside * Plan of Care - Cuba Lujan MD - 04/11/2023 5:49 PM EST No acute surgical intervention. Patient is tolerating a diet and having bowel function. General Surgery will sign off. Please do not hesitate to call with any questions. Cuba Lujan MD General Surgery Resident, PGY-1 * Plan of Care - Elsie Downing RN - 04/11/2023 11:09 AM EST Problem: Pain Goal: Patient goal is pain score less than 4, able to rest, and participant in treatment plan as appropriate Description: INTERVENTIONS: 1. Encourage patient or legal mortician supplies sales representative to report early pain and ask [...] per policy 9. Teach patient or legal mortician supplies sales representative interventions for comforting Outcome: Progressing Note: [...] at the bedside 7. Instruct patient/ patient mortician supplies sales representative about use of safety devices 8. Include patient/ patient mortician supplies sales representative in decisions related to safety Outcome: Progressing Note: Evaluation of progress towards goal: Pt remains free from falls and injury, medicated using 5rights, hand hygiene in and out of room, [...] hygiene technique 7. Identify and instruct patient/patient mortician supplies sales representative in use of appropriate isolation precautionsfor identified infection/symptoms 8. Provide and discuss with patient/patient mortician supplies sales representative on educational MDRO sheet 9. Encourage and monitor nutritional status daily and consult movie shot cameraman if indicated 10. Implement neutropenic guidelines as needed 11. Review exposure to history of communicable disease and recent travel history on admission 12. Encourage annual influenza vaccine 13. Encourage pneumonia vaccine Outcome: Progressing Note: Evaluation of progress towards goal: Afebrile, labs and VS monitored Problem: Knowledge Deficit Goal: Patient/patient mortician supplies sales representative demonstrates understanding of disease process, treatment plan,medications, and discharge instructions Description: INTERVENTIONS 1. Complete [...] supplement as ordered 13. Collaborate with clinical movie shot cameraman 14. Include patient/ patient's mortician supplies sales representative in decisions related to nutrition Outcome: [...] Score of =/> 25 or indicated by [facility] Assessment Goal: Patient should be free from fall Description: Interventions: 1. [place] to environment 2. Hourly rounds addressing the [...] non-skid footwear 11. Teach patient and patient mortician supplies sales representative to maintain environment for safety and [...] (cane, walker) within reach 19. Request patient mortician supplies sales representative bring adaptive equipment/mobility aids from home or obtain and provide as needed 20. Consult pharmacy regarding effects of med's affecting mobility, cognition, and alternatives 21. Obtain physician order for PT if risk factors associated with mobility are present 22. Obtain physician order for OT as appropriate 23. Utilize diversional activities 24. Educate patient and patient mortician supplies sales representative how to maintain a safe environment during visitationtimes (notify nurse prior to leaving bedside) 25. Consider appropriateness of medical or non-lead medical technologist 26. Set up voiding schedule as appropriate [...] and deep breathe, respiratory treatments as needed * Discharge Planning Note - Paty Balderas RN - 04/11/2023 10:30 AM EST DISCHARGE PLANNING NOTE Per RN during discharge transition rounds, barriers to discharge are: clears, IVF, IV iron, iv seizure medications. Discharge Plan: [facility] and patient will need transport back to facility on discharge. [employer] Supervisor will continue to follow for any discharge needs. - Paty Balderas RN 04/11/23 10:31 AM * Plan of Care - Domi Mott RN - 04/10/2023 8:17 PM EST Problem: Pain Goal: Patient goal is pain score less than 4, able to rest, and participant in treatment plan as appropriate Description: INTERVENTIONS: 1. Encourage patient or legal mortician supplies sales representative to report early pain and ask [...] per policy 9. Teach patient or legal mortician supplies sales representative interventions for comforting Outcome: Progressing Note: Evaluation of progress towards goal: Pt denies pain. Pt level of comfort will be maintained. Prn pain medications is available * Plan of Care - Elsie Downing RN - 04/10/2023 3:46 PM EST Problem: Pain Goal: Patient goal is pain score less than 4, able to rest, and participant in treatment plan as appropriate Description: INTERVENTIONS: 1. Encourage patient or legal mortician supplies sales representative to report early pain and ask [...] per policy 9. Teach patient or legal mortician supplies sales representative interventions for comforting Outcome: Progressing Note: [...] at the bedside 7. Instruct patient/ patient mortician supplies sales representative about use of safety devices 8. Include patient/ patient mortician supplies sales representative in decisions related to safety Outcome: Progressing Note: Evaluation of progress towards goal: Pt remains free from falls and injury, medicated using 5rights, hand hygiene in and out of room, [...] hygiene technique 7. Identify and instruct patient/patient mortician supplies sales representative in use of appropriate isolation precautionsfor identified infection/symptoms 8. Provide and discuss with patient/patient mortician supplies sales representative on educational MDRO sheet 9. Encourage and monitor nutritional status daily and consult movie shot cameraman if indicated 10. Implement neutropenic guidelines as needed 11. Review exposure to history of communicable disease and recent travel history on admission 12. Encourage annual influenza vaccine 13. Encourage pneumonia vaccine Outcome: Progressing Note: Evaluation of progress towards goal: Afebrile, labs and VS monitored Problem: Knowledge Deficit Goal: Patient/patient mortician supplies sales representative demonstrates understanding of disease process, treatment plan,medications, and discharge instructions Description: INTERVENTIONS 1. Complete [...] supplement as ordered 13. Collaborate with clinical movie shot cameraman 14. Include patient/ patient's mortician supplies sales representative in decisions related to nutrition Outcome: [...] be free from fall Description: Interventions: 1. [place] to environment 2. Hourly rounds addressing the [...] non-skid footwear 11. Teach patient and patient mortician supplies sales representative to maintain environment for safety and [...] (cane, walker) within reach 19. Request patient mortician supplies sales representative bring adaptive equipment/mobility aids from home or obtain and provide as needed 20. Consult pharmacy regarding effects of med's affecting mobility, cognition, and alternatives 21. Obtain physician order for PT if risk factors associated with mobility are present 22. Obtain physician order for OT as appropriate 23. Utilize diversional activities 24. Educate patient and patient mortician supplies sales representative how to maintain a safe environment during visitationtimes (notify nurse prior to leaving bedside) 25. Consider appropriateness of medical or non-lead medical technologist 26. Set up voiding schedule as appropriate [...] an deep breathe, respiratory treatments as needed * Plan of Care - Padmaja Linder RCP - 04/10/2023 12:31 PM EST Problem: Inadequate Airway Clearance Goal: Patient will [...] on room air, aerosols prn as ordered. * Discharge Planning Note - Paty Balderas RN - 04/10/2023 10:14 AM EST DISCHARGE PLANNING NOTE Per RN during discharge transition rounds, barriers to discharge are: NPO, NG- LIWS, IVF, iv seivuremedications, IV iron, sof bowel follow through. Discharge Plan: [facility] [employer] Supervisor will continue to follow for any discharge needs. - Paty Balderas RN 04/10/23 10:16 AM * Plan of Care - Domi Mott RN - 04/09/2023 8:13 PM EST Problem: Pain Goal: Patient goal is pain score less than 4, able to rest, and participant in treatment plan as appropriate Description: INTERVENTIONS: 1. Encourage patient or legal mortician supplies sales representative to report early pain and ask [...] per policy 9. Teach patient or legal mortician supplies sales representative interventions for comforting Outcome: Progressing Note: [...] at the bedside 7. Instruct patient/ patient mortician supplies sales representative about use of safety devices 8. Include patient/ patient mortician supplies sales representative in decisions related to safety Outcome: [...] hygiene technique 7. Identify and instruct patient/patient mortician supplies sales representative in use of appropriate isolation precautionsfor identified infection/symptoms 8. Provide and discuss with patient/patient mortician supplies sales representative on educational MDRO sheet 9. Encourage and monitor nutritional status daily and consult movie shot cameraman if indicated 10. Implement neutropenic guidelines as needed 11. Review exposure to history of communicable disease and recent travel history on admission 12. Encourage annual influenza vaccine 13. Encourage pneumonia vaccine Outcome: Progressing Note: Evaluation of progress towards goal: Continue to monitor labs and vs Problem: Knowledge Deficit Goal: Patient/patient mortician supplies sales representative demonstrates understanding of disease process, treatment plan,medications, and discharge instructions Description: INTERVENTIONS 1. Complete [...] towards goal: Pt making progress towards discharge * Discharge Planning Note - Paty Balderas RN - 04/09/2023 11:34 AM EST Images from the original note were not included. DISCHARGE PLANNING NOTE Services Requested: Services Requested Discharge Disposition: Correction Correction Name: [facility] Does the patient need discharge transportation arranged?: Yes Transportation Arranged: [facility] Visiting Physician/Provider: Carson Dior MD Initial DC Assessment Completed: Yes Patient Goals: Patient/Caregiver Goals Patient/Caregiver Goals: ([facility]) Goals: Goals home (pt-stated) Evaluation of progress towards goal: Patient sister stated back to [facility]. Patient admitted for: small bowel obstruction Patient discussed in discharge transition rounds: Per RN report barriers include; NPO, NG_LIWS, IVF, IV seizure medications. CN spoke with patient sister, Susan, over the phone , introduced self and explained role. Patient lives at [facility]. Patient sister stated they are mostly independent with direction with ADL's and patient was not able to drive prior to admission. Patient sister states that they currently use a wheelchair DME. Patient endorses no issue financially with being able to obtain medications or food. Patient states that they have working water, gas and electric. Patient's preferred pharmacy is [facility] in [place] PCP added to follow up provider list to receive summary of care at discharge. Based on readmission risk assessment, patient has risk score of 17.3 for readmission. The followingarrangements have been made to help prevent readmission. D/C Plan: Patient sister Susan stated patient will return to [facility] when medically ready. [employer] Supervisor will continue to follow for any discharge needs. - Paty Balderas RN 04/09/23 11:40 AM * Plan of Care - Nelida Teran RN - 04/09/2023 8:01 AM EST Problem: Knowledge Deficit Goal: Patient/patient mortician supplies sales representative demonstrates understanding of disease process, treatment plan,medications, and discharge instructions Description: INTERVENTIONS 1. Complete learning assessment and assess knowledge base 2. Provide teaching at level of understanding 3. Provide teaching via preferred learning method(s) Outcome: Progressing Note: Evaluation of progress towards goal: patient and sister updated on plan of care. Both partiesstate understanding. * Plan of Care - Domi Mott RN - 04/08/2023 8:38 PM EST Problem: Pain Goal: Patient goal is pain score less than 4, able to rest, and participant in treatment plan as appropriate Description: INTERVENTIONS: 1. Encourage patient or legal mortician supplies sales representative to report early pain and ask [...] per policy 9. Teach patient or legal mortician supplies sales representative interventions for comforting Outcome: Progressing Note: [...] at the bedside 7. Instruct patient/ patient mortician supplies sales representative about use of safety devices 8. Include patient/ patient mortician supplies sales representative in decisions related to safety Outcome: [...] hygiene technique 7. Identify and instruct patient/patient mortician supplies sales representative in use of appropriate isolation precautionsfor identified infection/symptoms 8. Provide and discuss with patient/patient mortician supplies sales representative on educational MDRO sheet 9. Encourage and monitor nutritional status daily and consult movie shot cameraman if indicated 10. Implement neutropenic guidelines as needed 11. Review exposure to history of communicable disease and recent travel history on admission 12. Encourage annual influenza vaccine 13. Encourage pneumonia vaccine Outcome: Progressing Note: Evaluation of progress towards goal: Continue to monitor labs and vs Problem: Knowledge Deficit Goal: Patient/patient mortician supplies sales representative demonstrates understanding of disease process, treatment plan,medications, and discharge instructions Description: INTERVENTIONS 1. Complete [...] towards goal: Pt making progress towards discharge * Plan of Care - Nelida Teran RN - 04/08/2023 5:43 PM EST Problem: Pain Goal: Patient goal is pain score less than 4, able to rest, and participant in treatment plan as appropriate Description: INTERVENTIONS: 1. Encourage patient or legal mortician supplies sales representative to report early pain and ask [...] per policy 9. Teach patient or legal mortician supplies sales representative interventions for comforting Outcome: Progressing Note: Evaluation of progress towards goal: patient has no acute complaints of pain [facility] Narrative* Edilma Eastman MD - 04/19/2023 12:17 PM EST Images from the original note were not included. [facility] Summary Patient Name: Amol Taylor : 1955 PCP: CARSON DIOR MD DATE OF ADMISSION: 04/08/2023 DATE OF DISCHARGE: 04/19/2023 PRIMARY DISCHARGE DIAGNOSIS: Small-bowel obstruction SECONDARY DISCHARGE DIAGNOSIS: Oropharyngeal dysphagia Asymptomatic bradycardia Acute urinary retention, resolved Hypomagnesemia Hypophosphatemia, improved Combined chronic normocytic anemia iron-deficiency anemia anemia of chronic disease Vitamin B12 deficiency MR DD Seizure disorder Presence of vagal nerve stimulator BPH CONSULTANTS: General surgery Cardiology Neurology [facility]/HOSPITAL COURSE SUMMARY: Amol Taylor is a 68 y.o. male with a past medical history of seizure disorder, vagal nerve stimulator, small-bowel obstructions, MR DD, BPH who was brought to the ED with complaints of vomiting.The patient was subsequently transferred to [facility]. A CT scan showed concern for a small bowel obstruction. General surgery was consulted in yet an NG tube placed. Neurology was consulted regarding antiepileptic drug therapy given his NPO status. The patient was started on IV Keppra and IVVimpat as per Neurology recommendation. His home primidone [...] recommendation for no liquids and discussion with thepatient's POA regarding the possibility of PEG tube placement oral alternative feeding methods for adequate nutrition. This history would only want a PEG tube as a very last resort as he would not beable to return to his [facility] with a feeding tube. She reported he was previously doing very well with diet. That he is followed closely at [facility] and only takes very small amount of [...] need arrangements for physical therapy and occupational therapy.Patient had a PICC line that was removed prior to discharge. Patient was seen and examined on the day of discharge. DISCHARGE INSTRUCTIONS: Disposition: discharge to return to [facility] to arrange physical therapy, occupational therapy, and speech language pathology therapy Condition: good Activity: as tolerated Diet: Adult diet Level 4 Pureed diet; Level 3 Moderately Thick; supervised liquids only. one sip christopher time Adult diet Code Status: Full code FOLLOW-UP: Follow up with primary care provider within 1-2 weeks of discharge Follow up with the patient's neurologist To follow up with patient with therapy, Occupational therapy, and speech language pathology to be arranged at the [facility] Physical Exam: BP 96/57 Pulse 77 Temp [...] Area bilat not conjuctivia (for pt chronic itchingof ey) Where to Get Your Medications These medications were sent to [facility], [facility] [place], [place] - [address], [facility] [address] magnesium oxide 400 mg tablet Thirty-eight minutes were spent on discharging this patient. Edilma Eastman MD documented in [facility]Gre[facility] History of Present illness Narrative* Dinora Reddy, NNEKA - 04/19/2023 11:31 AM EST NUTRITION ADULT FOLLOW UP NUTRITION ASSESSMENT: Patient History: Brief Clinical Summary: 68 yo with PMH: intellectual disability, seizure disorder, vagus nerve stimulator, small-bowel obstruction, and BPH. Pt with complicated abdominal surgical history with multiple small bowel resections and SBO's. Pt was brought to ER with complaints of vomiting and was transferred to [facility] ER. CT scan showed small bowel obstruction. [...] 3 days Lab Units 04/19/23 0500 04/18/23 0604/17/23 0500 WBC [id number]/L 8.0 9.0 9.0 HEMOGLOBIN [...] for: VERYLOWLIP Lab Results Component Value Date [id number] 157 (L) 04/09/2023 Lab Results Component Value [...] g 176 g oral [facility] MD barium sulfate (E-Z-PASTE) 60 % [...] injection 5,000 Units 5,000 Units subcutaneous Q8H [facility] Nazia Chappell MD 5,000 Units at 04/19/23 0629 lacosamide (VIMPAT) tablet 150 mg 150 mg oral Q12H Edilma Eastman MD 150 mg at 04/19/23 0143 lamoTRIgine (LaMICtal) tablet 400 mg 400 mg oral Daily Edilma Eastman MD 400 mg at 04/19/23 0905 lamoTRIgine (LaMICtal) tablet 600 mg 600 mg oral Nightly Edilma Eastman MD 600 mg at latanoprost (XALATAN) 0.005 % ophthalmic solution 1 drop 1 drop both eyes Nightly Houston Perkins MD 1 drop at 04/18/232317 levETIRAcetam (KEPPRA) tablet 1,500 mg 1,500 mg oral Daily Edilma Eastman MD 1,500 mg at 04/19/23 09 levETIRAcetam (KEPPRA) tablet 2,000 mg 2,000 mg [...] water (0.1 mEq/mL premix) 10 mEq intravenous PRMarek Chappell MD Stopped at 04/14/23 1855 primidone (MYSOLINE) tablet 250 mg 250 mg oral Daily Edilma Eastman MD 250 mg at 04/19/23904 primidone (MYSOLINE) tablet 375 mg 375 mg oral Nightly Edilma Eastman MD 375 mg at 04/18/232316 sodium phosphate 20 mmol in sodium chloride 0.9 % 250 mL IVPB 20 mmol intravenous PRN Houston Perkins MD Or sodium phosphate 20 mmol in sodium chloride 0.9 % 100 mL IVPB 20 mmol intravenous PRMarek Perkins MD Stopped at 04/18/232030 Or sod phos di, mono-K phos mono (K-PHOS NEUTRAL) 250 mg tablet 2 tablet 2 tablet oral PRN Houston Perkins MD sodium chloride 0.9 % flush 20 mL 20 mL intravenous Q12H Nazia Chappell MD 20 mL at 04/19/23 0904 And [...] 0.9 % infusion 20 mL/hr intravenous Continuous PRMarek Chappell MD Stopped at 04/16/23 0047 terazosin (HYTRIN) capsule 1 mg 1 mg nasogastric Daily Gonzales La MD 1 mg at 04/19/23 09 Nutrition Focused Physical Findings Last BM 04/19, noted to be loose and watery +PICC, cortrak removed 04/18 Skin (per nursing flow sheets): Skin Color: [place]; Pale (04/19/23899) Skin Temp: Warm; Dry (04/19/23899) [...] (per nursing flow sheets): RLE Edema: +1 (04/19/23 0900) LLE Edema: +1 (04/19/23 0900) Intake/ Output [...] eat as he normally does at the [facility]. Would like to use PEG as last [...] Admit Weight: 74.4 kg (Bed Scale, 04/09) [place] Body Weight: 64.5 kg Weight Changes: 2.8 kg (3.4%) wt loss in < 2 months, not clinically significant Current Body Mass Index: Body mass index is 27.26 kg/m . Comparative Standards: Estimated Energy Needs: 6747-6567 kcals daily. Method and weight used: 25-30 kcal/kg IBW Estimated Protein Needs: 78-130 grams daily. Method and weight used: 1.2-2g protein/kg IBW Estimated Fluid Needs: 1839-5589 ml daily. Method weight used: 1 ml/kcal Comments: Floor needs based on ideal body weight Malnutrition Status: Malnutrition Present: No NUTRITION DIAGNOSIS: Intake Diagnosis: Inadequate oral intake (NI 2.1) Ongoing NUTRITION INTERVENTIONS: Meals and snacks: Continue to encourage adequate oral intake Supplements: Due to pt discharging, will not order supplements, however pt would benefit from dailyhigh protein nutrition supplement RECOMMENDATIONS: If patient is unable to consistently meet > 75% of his needs via PO intake, recommend alternative route of nutrition GOAL(S): patient to meet > 75% of his estimated needs PO NUTRITION MONITORING AND EVALUATION: PO intake, weights, labs, POC Dinora Reddy RD, LD Clinical Dietitian [facility] [phone] * Edilma Eastman MD - 04/18/2023 9:17 AM EST [facility] Progress Note 04/18/2023 Hospital Day: 11 Patient Name: Amol Taylor : 1955 ASSESSMENT Small-bowel obstruction, resolved. NG removed 04/10/2023. Small-bowel follow- through showing no obstruction Dysphagia diet status post [...] and lamotrigine were on hold due to noIV formula. Recommended per Neurology to resume as [...] continue to work with therapy at his [facility]. She would only want PEG as a last resort as he would not be able to return to his [facility] with a feeding tube and previously doing well with his diet. Will reach out to speech pathology. Possibly consider swallow study without cortrak in place. Serum metabolic panel daily. Phosphorus and magnesium replacement Continue terazosin DVT prophylaxis: Subcutaneous heparin Discharge planning: SNF versus [facility]. Pending ongoing discussion regarding possible PEG tube [...] Intake/Output Summary (Last 24 hours) at 04/18/2023 0967 Last data filed at 04/18/2023 0740 Gross [...] 1 mg, nasogastric, Daily Edilma Eastman MD * Edilma Eastman MD - 04/17/2023 9:05 AM EST [facility] Progress Note 04/17/2023 Hospital Day: 10 Patient Name: Amol Taylor : 1955 ASSESSMENT Small-bowel obstruction, resolved. NG removed 04/10/2023. Small-bowel follow- through showing no obstruction Dysphagia diet status post [...] and lamotrigine were on hold due to noIV formula. Recommended per Neurology to resume as soon as possible. I will resume primidone and lamotrigine. I confirmed with neurology and to be resumed at his home dose. Tube feeding as per nutrition via Cortrak Serum metabolic panel daily. Phosphorus and magnesium replacement Continue terazosin DVT prophylaxis: Subcutaneous heparin Discharge planning: SNF [facility]. Pending ongoing discussion regarding possible PEG tube [...] 1 mg, nasogastric, Daily Edilma Eastman MD * NNEKA Morales - 04/16/2023 11:13 AM EST NUTRITION ADULT FOLLOW UP NUTRITION ASSESSMENT: Patient History: Brief Clinical Summary: 68 yo with PMH: intellectual disability, seizure disorder, vagus nerve stimulator, small-bowel obstruction, and BPH. Pt with complicated abdominal surgical history with multiple small bowel resections and SBO's. Pt was brought to ER with complaints of vomiting and was transferred to [facility] ER. CT scan showed small bowel obstruction. [...] for: [facility]LIP Lab Results Component Value Date [id number] 157 (L) 04/09/2023 Lab Results Component Value [...] g 176 g oral Once in imaging Avihamdana La MD barium sulfate (E-Z-PASTE) 60 % oral cream 454 g 454 g oral [facility] barium sulfate (LIQUID E-Z PAQUE) 60 % (w/v) suspension 355 mL 355 mL oral [facility] bar[facility] sulfate (LIQUID POLIBAR PLUS) 105 % (w/v), 58 % (w/w) suspension 300 mL 300 mL oral [facility] barium sulfate (VARIBAR HONEY) 40 % (w/v) 29% (w/w) suspension 250 mL 250 mL oral [facility] dextrose (GLUTOSE) 40 % gel [...] 120 mL IVPB 2,000 mg intravenous HS Naiza Chappell MD Stopped at 04/15/23 2325 levETIRAcetam [...] 0.9 % flush bag 25 mL intravenous PRMarek Chappell MD Stopped at 04/16/23 0656 sodium chloride 0.9 % infusion 20 mL/hr intravenous Continuous PRMarek Chappell MD Stopped at 04/16/23 0047 terazosin [...] Diet History: Spoke with pt's sister and SUPERVISOR TELEPHONE INFORMATION from [facility]. Stated prior to admission pt was eating very well. At the facility he needs watched while eating due to try to eat his food too fast, perLPN. However, pt was eating three times per [...] Admit Weight: 74.4 kg (Bed Scale, 04/09) [place] Body Weight: 64.5 kg Weight Changes: 2.8 kg (3.4%) wt loss in < 2 months, not clinically significant Current Body Mass Index: Body mass index is 26.51 kg/m . Comparative Standards: Estimated Energy Needs: 5009-7784 kcals daily. Method and weight used: 25-30 kcal/kg IBW Estimated Protein Needs: 78-130 grams daily. Method and weight used: 1.2-2g protein/kg IBW Estimated Fluid Needs: 6175-5591 ml daily. Method weight used: 1 ml/kcal Comments: Floor needs based on ideal body weight Malnutrition Status: Malnutrition Present: No NUTRITION DIAGNOSIS: Intake Diagnosis: Inadequate oral intake (NI 2.1) Ongoing NUTRITION INTERVENTIONS: Enteral Nutrition: Continue TF of Osmolite 1.2 to provide 1560 ml formula, 1875 kcals, 87 g protein, and 1279 ml free water daily. Meals and snacks: Continue diet, per REGULATORY ADMINISTRATOR Coordination of Care: Spoke with RN, pt's sister and SUPERVISOR TELEPHONE INFORMATION GOAL(S): Meet estimated calorie and protein needs. NUTRITION MONITORING AND EVALUATION: TF tolerance, PO intake, weight trend, labs, POC and overall status. Dinora Reddy RD, LD Clinical Dietitian [facility] [phone] * Gonzales La MD - 04/16/2023 7:55 AM EST Images from the original note were not included. [facility] Progress Note 04/16/2023 Patient Name: [...] Intake/Output Summary (Last 24 hours) at 04/16/2023 5903 Last data filed at 04/16/2023 0549 Gross [...] Diet: TF Code status: Full Discharge planning: MCC * Gonzales La MD - 04/15/2023 8:42 AM EST Images from the original note were not included. [facility] 04/15/2023 Patient Name: [...] Diet: TF Code status: Full Discharge planning: MCC * Gonzales La MD - 04/14/2023 7:58 AM EST Images from the original note were not included. [facility] Progress Note 04/14/2023 Patient Name: [...] Diet: TF Code status: Full Discharge planning: MCC * Xavier Segal PA-C - 04/13/2023 10:56 AM EST Images from the original note were not included. [facility] [address] [place], [place] [id number] PROGRESS NOTE Amol Taylor is resting comfortably [...] 04/13/23 0608 04/12/23 1825 04/12/23 0634 04/11/23 18104/11/23 0445 04/10/23 0405 04/09/23 18204/09/23 0418 SODIUM mmol/L 144 -- 145 -- [...] last 7 days Lab Units 04/13/23 0608 04/12/23182404/12/23 0634 MAGNESIUM mg/dL 1.6* 1.8 1.6* D [...] recommend advancing 13 cm. Approved by Resident Uma Givens DO on 04/07/2023 10:28 PM Juan Ng MD have personally reviewed the image(s) and agree with and/or edited the report Finalized by Juan Torres MD on 0:32 PM X-ray chest 2 views Result Date: 02/15/2023 XR CHEST 2 VWS HISTORY: Fever COMPARISON: 01/29/2021 FINDINGS: AP erect and lateral upright films obtained. Battery pack overlies the left chest with lead extending superiorly into the left neck. Thecardiomediastinal silhouette is within normal limits. No pneumothorax or pleural effusion. Right lower lobe opacity. IMPRESSION: Right lower lobe opacity, which may represent pneumonia in the appropriate clinical setting. Approved by Resident Geneva Azevedo MD on 02/15/2023 9:29 AM I, [...] CHEST 02/11/2023 9:19 am COMPARISON: 02/10/2023 HISTORY: ORDERINGSYSTEM PROVIDED HISTORY: cough TECHNOLOGIST PROVIDED HISTORY: cough [...] Stable stimulating device with distal portion overlying theleft neck. Mild left basilar opacities suggesting atelectasis [...] (!) 43 (!) 39 (!) 40 Resp: Temp: 36.4 C (97.5 F) 36.7 C [...] signs of higher degree AV block. Neurology hasbeen consulted given patient having a vagal nerve stimulator as it may need interrogated and readjusted to allow for better increased heart rate. Nothing further from a cardiology standpoint at this time. XAVIER SEGAL PA-C This note was completed using a voice driller and broacher system. Every effort was made to ensure accuracy. However, inadvertent computerized driller and broacher errors may be present. Xavier Segal PA-C 04/13/23 1057 * Gonzales La MD - 04/13/2023 8:51 AM EST Images from the original note were not included. [facility] Progress Note 04/13/2023 Patient Name: [...] Diet: NPO Code status: Full Discharge planning: MCC * Gonzales La MD - 04/12/2023 8:04 AM EST Images from the original note were not included. [facility] 04/12/2023 Patient Name: [...] and lamotrigine on hold due to no IVformulation at this time Continue B12 and IV Venofer Daily labs Replace electrolytes as needed ADDENDUM Discussed with sister regarding alternatives source of hydration and nutrition including TPN vs TF.Also discussed idea of potential hospice as an alternative to value quality over quantity of life. She reported she needs to discuss this over with their brother and she will get back to us. Pending CXR to r/o pneumonia given rhonchi on exam. DVT prophylaxis: Heparin Diet: NPO Code status: Full Discharge planning: MCC * Cuba Lujan MD - 04/11/2023 10:51 AM EST General Surgery B Daily Progress Note IP [...] COMPARISON: CT abdomen/pelvis 04/07/2023 FINDINGS: Images: 5 Para Educator view shows a nonobstructive bowel gas pattern. [...] primary General surgery will continue to follow Cuba Lujan MD General Surgery Resident, PGY-1 General Surgery B 6a-6p pager #[phone] 6p-6a pager #[phone] Associated attestation - Hadley Dave MD - 04/11/2023 1:10 PM EST Attending Attestation: I saw the patient. I participated and was physically present during the critical/gee portions of the service. I was directly involved in the management and treatment plan of the patient. I reviewed the resident's note. Additional Notes/Findings: Medical Decision Making: high Having bowel movements. White count normal * Gonzales La MD - 04/11/2023 8:08 AM EST Images from the original note were not included. [facility] Progress Note 04/11/2023 Patient Name: Amol Taylor : 1955 Hospital Day: 4 SUBJECTIVE Patient was seen and examined at bedside. Patient denied any bowel movements or flatulence. Nursinghad no concerns. Overnight he had bradycardia. OBJECTIVE [...] and lamotrigine on hold due to no IVformulation at this time Discontinue fluids given that he is on a CLD now Discussed with nursing to encourage PO intake Continue B12 and IV Venofer Daily labs Replace electrolytes as needed DVT prophylaxis: Heparin Diet: CLD Code status: Full Discharge planning: MCC * Cuba Lujan MD - 04/10/2023 9:45 AM EST General Surgery B Daily Progress Note IP [...] recommend advancing 13 cm. Approved by Resident Uma Givens DO on 04/07/2023 10:28 PM IJuan [...] kidney with peripheral calcification, not significantly changed, consistentwith benign etiology, no follow-up required. No free fluid. IMPRESSION: 1. Distended the stomach and multiple small bowel loops suspicious for obstruction in the mid smallbowel. Finalized by Huey Shaffer MD on 04/07/2023 9:48 PM Assessment: Amol Taylor is a [address] concerns for SBO Plan: No acute surgical intervention at this time Cont NG LIS SBFT today Pain and nausea control Continue care per primary General surgery will continue to follow Cuba Lujan MD General Surgery Resident, PGY-1 General Surgery B 6a-6p pager #[phone] 6p-6a pager #[phone] Associated attestation - Jesica Almonte MD - 04/10/2023 8:03 PM EST ATTENDING NOTE I saw the patient. I participated and was physically present during the critical/gee portions of the service. I was directly involved in the management and treatment plan of the patient. I reviewed the resident's note. Additional Notes/Findings: MDM: moderate Electronically signed by JESICA ALMONTE MD [facility] General Surgeons Robotic Surgery Surgical Critical Care [phone] * Gonzales La MD - 04/10/2023 7:57 AM EST Images from the original note were not included. [facility] Progress Note 04/10/2023 Patient Name: [...] and lamotrigine on hold due to no IVformulation at this time Continue IV normal saline with potassium chloride 20 mEq per L Continue B12 and IV Venofer Daily labs Replace electrolytes as needed DVT prophylaxis: Heparin Diet: NPO Code status: Full Discharge planning: MCC * Daniel Blackwell MD - 04/09/2023 3:04 PM EST Images from the original note were not [...] acute disease. There is substantial patient motion loweringthe sensitivity of the exam. * Prior right cerebral insult with asymmetric atrophy and more localized encephalomalacia posteriorparietal distribution. Correlate with relevant history. 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 albuterol dextrose dextrose 5 % [...] temperature 36.3 C (97.3 F), temperature source Oral,resp. rate 20, weight 74.4 kg (164 lb [...] level of the GE junction. Diffuse gaseous distentionof the stomach and both large and small bowel. Visualized lung bases are clear. IMPRESSION: * Enteric tube terminates above the level of the GE junction, recommend advancing 13 cm. Approved by Resident Uma Givens DO on 04/07/2023 10:28 PM Juan [...] dose to as low as reasonably achievable. COMPARISON:CT dated 01/29/2021 FINDINGS: Haziness in the dependent [...] LIST: Patient Active Problem List Diagnosis Seizures ([facility]) Mental retardation Obesity Balance problem Osteoarthritis Left arm weakness Bowel obstruction ([facility]) Eczema Preventative health care BPH (benign prostatic hyperplasia) Osteopenia Seborrheic dermatitis Medicare annual wellness visit, subsequent Vitamin D deficiency Respiratory crackles Hospital discharge follow-up SBO (small bowel obstruction) ([facility]) ASSESSMENT: Amol Taylor is a [...] to Sunday 12-1:00 p.m. Primary Neurology service: [phone] Consult neurology service: [phone] Resident Stroke Service: [phone] If the patient belongs to the Stroke MEMO service please contact the Stroke MEMO directly. Associated attestation - Ramirez Calvo MD - 04/09/2023 8:43 PM EST Attending Attestation: I saw the patient. I performed the critical/gee portions of the service. I was directly involved inthe management and treatment plan of the patient. [...] Recommend resuming the other 2 antiepileptic medications assoon as possible after planned small bowel surgery. Neurology will follow from a distance. Please call with any questions. * Houston Perkins MD - 04/09/2023 1:08 PM EST Principal Problem: SBO (small bowel obstruction) ([facility]) Chief Complaint: No complains ASSESSMENT AND PLAN: Patient is a 68-year-old male with known Hx/o MRDD, seizure s/p VNS, BPH, Multiple episodes of SBO previous surgery at [facility] recent hospitalization for same at [facility] in 02/2023 managed conservatively brought to the [...] active bleeding, noted hemoglobin last month was also9.7. Replace ferrous sulfate, vitamin B12. Monitor for [...] effective now Question: Diet Type: Answer: NPO 04/08/2348 SUBJECTIVE: Patient awake seen earlier this morning [...] This note was completed using a voice driller and broacher system. Every effort was made to ensure accuracy. However, inadvertent computerized driller and broacher errors may be present. * Cuba Lujan MD - 04/09/2023 7:36 AM EST Images from the original note were not included. General Surgery B Daily Progress Note IP Day: 1 Subjective: No acute overnight events. Stan flatus and BM. Denies nausea and vomiting. HDS, afebrile, WBC 7.8.NG tube with 500 cc Objective: Vitals: 04/09/23 [...] recommend advancing 13 cm. Approved by Resident Uma Givens DO on 04/07/2023 10:28 PM IJuan [...] kidney with peripheral calcification, not significantly changed, consistentwith benign etiology, no follow-up required. No free fluid. IMPRESSION: 1. Distended the stomach and multiple small bowel loops suspicious for obstruction in the mid smallbowel. Finalized by Huey Shaffer MD on 04/07/2023 9:48 PM Assessment: Amol Taylor is a [address] concerns for SBO Plan: No acute surgical intervention at this time Cont NG LIS Pain and nausea control Tentatively plan on SBFT on 04/10/2023 Continue care per primary General surgery will continue to follow Cuba Lujan MD General Surgery Resident, PGY-1 General Surgery B 6a-6p pager #[phone] 6p-6a pager #[phone] Associated attestation - Hadley Dave MD - [...] or the next day. [facility]* Jackson Giles RN - 04/18/2023 11:49 AM EST Service Coordinator Elderly Facility spoke with patients GEORGINA JohnsonSusan, per Dr Cook request, to review case. Speech therapy recommending supervised Level [address] Eastman would like to remove Cortrakand see how patient does with the liquids. Susan is agreeable to this, with an understanding that if it does not go well, the patient may have to have the cortrak put back in. Service Coordinator Elderly Facility also spoke with Susan regarding speech therapys recommendation of a provale cup. Jjtated she would look them up after our phone call was completed and would likely purchase one today. Dr. Eastman notified of writers conversation with Susan ERICKSON documented [facility] Consult note* Donnie Day MD - 04/13/2023 2:51 PM ESTAssociated Order(s): IP CONSULT TO PALLIATIVE MEDICINE Date of Admission: 04/08/2023 5:30 AM Reason for Consult:DISCUSSION OF GOALS OF CARE Referring Physician: DR LA PCP: CARSON DIOR MD Chief Complaint: VOMITING Principal Problem: SBO (small bowel obstruction) ([facility]) Subjective HPI: Amol Bennett a 68 y.o. White or male admitted with SBO (small bowel obstruction) ([facility]). Palliative medicine was consulted for discussions of goals of care. Patient has a longstanding history of MR DD seizure disorder multiple bowel surgeries with history of recurrent bowel obstructions. Patient was living at home with his parents about 5-6 years back where he had 24 hour care.The caregivers stopped coming so he had to be [facility] a [facility]. He has been [facility] a [facility] for the last 5 or 6 years. [...] sister who is his medical power of deputy attorney general and her name is Susan. Beyond this [...] brother. She would like for him to havean NG tube to feed him and for the speech to repeat testing. She is hoping that he will go back to his baseline of dysphagia diet as she feels her brother loves to eat. As a last resort if all fails she is agreeable to having a PEG tube placed for nutrition. She is patient's legal guardian and has paperwork for power of deputy attorney general. She has no other concerns at this time. She is sick with influenza and will be in the hospital Sunday. She does not want patient to go to [facility] however would like for him to go to [facility] in [place]. I did relay this message to the care navigation. The nature of above discussion was voluntary in nature. No family was present in the room. I spoke to patient's sister over the phone and more than 20 minutes spent discussing power of attorneylegal guardianship and code status. 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 Dysarthria clicking teeth, loud exhales, extra noises Dysphagia work up in progrss to r/o aspiration Eczema Fractures due to falls/ left leg x 2 // uses brace History of difficult intubation [facility] - 2016 Hydrocele of testis 2016 [...] 03/23/2020 Performed by Nicola Mahan MD at 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 2004 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 [...] level: Not on file Occupational History 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 03/23/20 Yes Violette Esparza MD albuterol (PROVENTIL HFA;VENTOLIN HFA) 90 mcg/actuation inhaler Inhale 2 puffs every 4 (four) hoursas needed for wheezing. 02/15/23 Yes Christine Saini, DO calcium carbonate (OS-TAYE) 600 mg (1,500 mg) tablet Take 1 tablet (600 mg total) by mouth 2 (two) times a day with meals. chewable 11/12/18 Yes Tyra Robles, DO finasteride (PROSCAR) 5 mg tablet Take 1 tablet (5 mg total) by mouth daily. 04/03/17 Yes Tyra Robles, DO hydrocortisone (HYTONE) 2.5 % cream Apply 2.5 application topically 2 (two) times a day as needed. 02/18/20 Yes Not In System Ref Prov hydrOXYzine (ATARAX) 25 mg tablet Take 1 tablet (25 mg total) by mouth as needed for itching. Patient taking differently: Take 1 tablet (25 mg total) by mouth every 12 (twelve) hours as needed for itching. 11/12/18 Yes Tyra Robles, DO lamoTRIgine (LaMICtal) 200 mg tablet [...] needed for anxiety or seizures. 04/02/17 Yes Tyra Robles DO meclizine (ANTIVERT) 25 mg tablet Take 1 tablet (25 mg total) by mouth daily. Patient taking differently: Take 1 tablet (25 mg total) by mouth 3 (three) times a day as needed for dizziness. 11/12/18 Yes Tyra Ilo, DO ondansetron ODT (ZOFRAN-ODT) 4 mg disintegrating tablet Dissolve 1 tablet (4 mg total) on tongue every 12 (twelve) hours as needed for nausea or vomiting. 04/03/17 Yes Tyra Robles, DO oxybutynin XL (DITROPAN-XL) 10 mg 24 hr tablet Take 1 tablet (10 mg total) by mouth in the morning.Yes Not In System Ref Prov pantoprazole (PROTONIX) [...] by mouth in the morning. Yes Not InSystem Ref Prov primidone (MYSOLINE) 250 mg tablet [...] 2 (two) times a day. 04/03/17 Yes Tyra Robles, DO VIMPAT 150 mg tablet Take 1 tablet (150 mg total) by mouth 2 (two) times a day. 03/07/18 Yes Tyra Robles, DO carbamide peroxide (DEBROX) 6.5 % otic solution Apply 4 ggt to both ear nightly once a month . Cotton ball then in am rinse with body temperature water using syringe in kit 11/12/18 Tyra Robles, DO cholecalciferol, vitamin D3, (cholecalciferol) 1,000 units tablet Take 1 tablet (1,000 Units total)by mouth daily. 09/04/18 Tyra Robles, DO diazePAM (DIASTAT ACUDIAL) 5-7.5-10 mg rectal kit Insert 20 mg into the rectum as needed for seizures (seizure > 15 minutes). Not In System Ref Prov inulin-chromium picolinate 2-100 gram-mcg tablet,chewable Chew 2 tablets and swallow daily. 11/12/18Eugenia Ilo, DO loperamide (IMODIUM A-D) 2 mg tablet Take 1 tablet (2 mg total) by mouth 2 (two) times a day as needed for diarrhea. 04/03/17 Tyra Ilo, DO melatonin (CIRCADIN) tablet Take 3 tablets (3 mg total) by mouth nightly as needed for sleep. Not In System Ref Prov white petrolatum-mineral oil (SYSTANE NIGHTTIME) 94-3 % ointment Instill 1 application to eye nightly. To eye lid Area bilat not conjuctivia (for pt chronic itching of ey) 10/17/17 Tyra Ilo, DO Immunization History Administered Date(s) Administered COVID-19, [...] 167.6 cm (5' 6 ) Wt 78.9 kg(173 lb 15.1 oz) SpO2 97% BMI 28.08 [...] Susan who is his medical power of deputy attorney general. Care discussed. Care discussed with nursing staff [...] does not want him to go to [facility] but would rather want him to go [facility] in [place] [facility]. This message was relayed to care navigation team. Thank you for this consult. Will continue to follow. Donnie Day MD, MPH * NNEKA Morales - 04/13/2023 1:27 PM ESTAssociated Order(s): IP CONSULT TO NUTRITION SERVICES; IP CONSULT TO NUTRITION SERVICES NUTRITION ADULT INITIAL EVALUATION NUTRITION ASSESSMENT: Reason to be seen: Consult for tube feeding management Patient History: Admit Diagnosis: Patient Active Problem List Diagnosis Seizures ([facility]) Mental retardation Obesity Balance problem Osteoarthritis Left arm weakness Bowel obstruction ([facility]) Eczema Preventative health care BPH (benign prostatic hyperplasia) Osteopenia Seborrheic dermatitis Medicare annual wellness visit, subsequent Vitamin D deficiency Respiratory crackles Hospital discharge follow-up SBO (small bowel obstruction) ([facility]) Past Medical History: Past Medical History: Diagnosis Date Abdominal hernia large but surgical risk Abnormal result of iron profile testing chronic ds Allergic Allergic rhinitis Balance problem falls with several fx// wears helment for protection Bowel obstruction ([facility]) 2016 and Oct BPH (benign prostatic hyperplasia) sees urology 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(jerking motions) // has a VNS implant which decreased grand mal seizures/ jerking episod weekly Uninodular goiter Urine incontinence Past Surgical History: Past Surgical History: Procedure Laterality Date CLAVICLE SURGERY COLONOSCOPY CYSTOCELE REPAIR 2015 EXCHANGE STIMULATOR BATTERY VAGAL NERVE N/A 03/23/2020 Performed by Nicola Mahan MD at 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 2004 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 [...] complaints of vomiting and was transferred to [facility] ER. CT scan showed small bowel obstruction. [...] for: VERYLOWLIP Lab Results Component Value Date [id number] (L) 04/09/2023 Lab Results Component Value [...] inhaler Inhale 2 puffs every 4 (four) hoursas needed for wheezing. 18 g 0 calcium [...] (10 mg total) by mouth in the morning.04/07/2023 pantoprazole (PROTONIX) 40 mg EC tablet Take [...] units tablet Take 1 tablet (1,000 Units total)by mouth daily. 90 tablet 1 diazePAM (DIASTAT [...] g 176 g oral Once in imaging Goznales La MD barium sulfate (E-Z-PASTE) 60 % [...] (D5W) infusion 100 mL/hr intravenous Continuous PRN Maria Luzubhita Misti, MD dextrose 5 % and sodium chloride [...] water (0.1 mEq/mL premix) 10 mEq intravenous PRMarek Chappell MD 100 mL/hr at 04/13/23 1202 [...] Skin (per nursing flow sheets): Skin Color: [place]; Pale (04/13/23 1000) Skin Temp: Dry; Warm [...] Weight: See weight trends in chart above [place] Body Weight: 64.5 kg Percent [place] Body Weight: 115% Weight Changes: 2.8 kg (3.4%) wt loss in < 2 months, not clinically significant Body Mass Index: Body mass index is 28.08 kg/m . BMI Category: Pre-obese (25.00- 29.99) Comparative Standards: Estimated Energy Needs: 9868-7975 kcals daily. Method and weight used: 25-30 kcal/kg IBW Estimated Protein Needs: 78-130 grams daily. Method and weight used: 1.2-2g protein/kg IBW Estimated Fluid Needs: 1783-1339 ml daily. Method weight used: 1 ml/kcal [...] status. Dinora Reddy RD, LD Clinical Dietitian [facility] [phone] * Audie Alvarado MD - 04/11/2023 12:00 PM ESTAssociated Order(s): IP CONSULT TO CARDIOLOGY Images from the original note were not included. [facility] [address] [place] [address] HISTORY & PHYSICAL / CONSULT NOTE Amol Taylor PCP: CARSON DIOR MD Date of Admission: 04/08/2023 Date of Consultation: 04/11/2023 12:00 PM Consult for bradycardia SUBJECTIVE History of Present Illness: Amol Taylor is a 68 y.o. male with past medical history of seizuredisorder, vagus nerve stimulator, small-bowel obstruction, and MR DD presented to the ER with nausea and vomiting and was found to have small-bowel obstruction. He had NG tube placed which was since removed. Cardiology is being consulted for bradycardia on telemetry with heart rates dipping down into the 30s. Patient lives [facility]. He is unable to provide much history. He is alert to self. He deniesany chest pain or palpitations. 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 Dysarthria clicking teeth, loud exhales, extra noises Dysphagia work up in progrss to r/o aspiration Eczema Fractures due to falls/ left leg x 2 // uses brace History of difficult intubation [facility] - 2016 Hydrocele of testis 2016 [...] 03/23/2020 Performed by Nicola Mahan MD at [facility] 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 2004 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 REPAIR 7 months old SMALL INTESTINE SURGERY 1985, 1992, 1993 s/p diverticulitis; bowel obstruction x 2 Allergies: Allergies Allergen Reactions Penicillins Hives and Shortness Of Breath Clindamycin [facility] Meds: Current Facility-Administered Medications Medication Dose Route [...] mEq/mL premix) 10 mEq intravenous PRN Nazia hCappell MD sodium phosphate 20 mmol in sodium [...] as needed for pain. 03/23/20 Yes Violette Esparza MD albuterol (PROVENTIL HFA;VENTOLIN HFA) 90 mcg/actuation inhaler Inhale 2 puffs every 4 (four) hoursas needed for wheezing. 02/15/23 Yes Christine Saini, calcium carbonate (OS-TAYE) 600 mg (1,500 mg) tablet Take 1 tablet (600 mg total) by mouth 2 (two) times a day with meals. chewable 11/12/18 Yes Tyra Robles, DO finasteride (PROSCAR) 5 mg tablet Take 1 tablet (5 mg total) by mouth daily. 04/03/17 Yes Tyra Robles, DO hydrocortisone (HYTONE) 2.5 % cream Apply 2.5 application topically 2 (two) times a day as needed. 02/18/20 Yes Not In System Ref Prov hydrOXYzine (ATARAX) 25 mg tablet Take 1 tablet (25 mg total) by mouth as needed for itching. Patient taking differently: Take 1 tablet (25 mg total) by mouth every 12 (twelve) hours as needed for itching. 11/12/18 Yes Tyra Robles, DO lamoTRIgine (LaMICtal) 200 mg tablet [...] needed for anxiety or seizures. 04/02/17 Yes Tyra Robles, DO meclizine (ANTIVERT) 25 mg tablet Take 1 tablet (25 mg total) by mouth daily. Patient taking differently: Take 1 tablet (25 mg total) by mouth 3 (three) times a day as needed for dizziness. 11/12/18 Yes Tyra Robles, DO ondansetron ODT (ZOFRAN-ODT) 4 mg disintegrating tablet Dissolve 1 tablet (4 mg total) on tongue every 12 (twelve) hours as needed for nausea or vomiting. 04/03/17 Yes Tyra Robles, DO oxybutynin XL (DITROPAN-XL) 10 mg 24 hr tablet Take 1 tablet (10 mg total) by mouth in the morning.Yes Not In System Ref Prov pantoprazole (PROTONIX) [...] by mouth in the morning. Yes Not InSystem Ref Prov primidone (MYSOLINE) 250 mg tablet [...] 2 (two) times a day. 04/03/17 Yes Tyra Robles, DO VIMPAT 150 mg tablet Take 1 tablet (150 mg total) by mouth 2 (two) times a day. 03/07/18 Yes Tyra Robles, DO carbamide peroxide (DEBROX) 6.5 % otic solution Apply 4 ggt to both ear nightly once a month . Cotton ball then in am rinse with body temperature water using syringe in kit 11/12/18 Tyra Robles, DO cholecalciferol, vitamin D3, (cholecalciferol) 1,000 units tablet Take 1 tablet (1,000 Units total)by mouth daily. 09/04/18 Tyra Robles DO diazePAM (DIASTAT ACUDIAL) 5-7.5-10 mg rectal kit Insert 20 mg into the rectum as needed for seizures (seizure > 15 minutes). Not In System Ref Prov inulin-chromium picolinate 2-100 gram-mcg tablet,chewable Chew 2 tablets and swallow daily. 11/12/18Tobingentammi Robles, DO loperamide (IMODIUM A-D) 2 mg tablet Take 1 tablet (2 mg total) by mouth 2 (two) times a day as needed for diarrhea. 04/03/17 Tyra Robles DO melatonin (CIRCADIN) tablet Take 3 tablets (3 mg total) by mouth nightly as needed for sleep. Not In System Ref Prov white petrolatum-mineral oil (SYSTANE NIGHTTIME) 94-3 % ointment Instill 1 application to eye nightly. To eye lid Area bilat not conjuctivia (for pt chronic itching of ey) 10/17/17 Tyra Robles DO Social History: TOBACCO: reports that [...] Results from last 7 days Lab Units 04/11/2344404/10/235 04/09/238 WBC X10E9/L 5.6 7.8 7.8 HEMOGLOBIN g/dL 10.1* 10.8* 10.9* HEMATOCRIT % 30.5* 31.2* 32.0* MCV fL 99 97 99 PLATELETS X10E9/L 118* 148* 153 BMP: Results from last 7 days Lab Units 04/11/23 04404/10/23 0405 04/09/23 1824 04/09/23 0418 SODIUM mmol/L 145 144 [...] recommend advancing 13 cm. Approved by Resident Uma Givens DO on 04/07/2023 10:28 PM Juan Ng MD have personally reviewed the image(s) and agree with and/or edited the report Finalized by Juan Torres MD on 0:32 PM X-ray chest 2 views Result Date: 02/15/2023 XR CHEST 2 VWS HISTORY: Fever COMPARISON: 01/29/2021 FINDINGS: AP erect and lateral upright films obtained. Battery pack overlies the left chest with lead extending superiorly into the left neck. Thecardiomediastinal silhouette is within normal limits. No pneumothorax or pleural effusion. Right lower lobe opacity. IMPRESSION: Right lower lobe opacity, which may represent pneumonia in the appropriate clinical setting. Approved by Resident Geneva Azevedo MD on 02/15/2023 9:29 AM I, [...] CHEST 02/11/2023 9:19 am COMPARISON: 02/10/2023 HISTORY: ORDERINGSYSTEM PROVIDED HISTORY: cough TECHNOLOGIST PROVIDED HISTORY: cough [...] Stable stimulating device with distal portion overlying theleft neck. Mild left basilar opacities suggesting atelectasis [...] This note was completed using a voice driller and broacher system. Every effort was made to ensure accuracy. However, inadvertent computerized driller and broacher errors may be present. Xavier Segal PA-C [...] observe on telemetry. agree with echocardiography test. * Daniel Blackwell MD - 04/08/2023 12:12 PM ESTAssociated Order(s): IP CONSULT TO NEUROLOGY Images from [...] acute disease. There is substantial patient motion loweringthe sensitivity of the exam. * Prior right cerebral insult with asymmetric atrophy and more localized encephalomalacia posteriorparietal distribution. Correlate with relevant history. 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 rate 18, SpO2 95%. Neurologic: Mental status: [...] level of the GE junction. Diffuse gaseous distentionof the stomach and both large and small bowel. Visualized lung bases are clear. IMPRESSION: * Enteric tube terminates above the level of the GE junction, recommend advancing 13 cm. Approved by Resident Uma Givens DO on 04/07/2023 10:28 PM I, [...] dose to as low as reasonably achievable. COMPARISON:CT dated 01/29/2021 FINDINGS: Haziness in the dependent [...] LIST: Patient Active Problem List Diagnosis Seizures ([facility]) Mental retardation Obesity Balance problem Osteoarthritis Left arm weakness Bowel obstruction ([facility]) Eczema Preventative health care BPH (benign prostatic hyperplasia) Osteopenia Seborrheic dermatitis Medicare annual wellness visit, subsequent Vitamin D deficiency Respiratory crackles Hospital discharge follow-up SBO (small bowel obstruction) ([facility]) ASSESSMENT: Amol Taylor is a 68 y.o. [...] with an NG to suction Will change release manager oral AEDs to IV as able IV [...] to Sunday 12-1:00 p.m. Primary Neurology service: [phone] Consult neurology service: [phone] Resident Stroke Service: [phone] If the patient belongs to the Stroke MEMO service please contact the Stroke MEMO directly. Associated attestation - Ramirez Calvo MD - 04/09/2023 8:44 PM EST I reviewed the resident's note and discussed the case with the resident. This specific service willnot be billed. Additional findings/notes: * Jay Borges MD - 04/08/2023 11:19 AM EST Images from the original note were not [...] concerns for SBO. Pt was transferred to [facility]. 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) // has a VNS implant which decreased grand mal seizures/ jerking episod weekly Uninodular goiter Urine incontinence Past Surgical History: Procedure Laterality Date CLAVICLE SURGERY COLONOSCOPY CYSTOCELE REPAIR 2016 EXCHANGE STIMULATOR BATTERY VAGAL NERVE N/A 03/23/2020 Performed by Nicola Mahan MD at [facility] 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 2004 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 [...] level: Not on file Occupational History 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 Approved by Resident Uma Givens DO on 04/07/2023 10:28 PM IJuan [...] kidney with peripheral calcification, not significantly changed, consistentwith benign etiology, no follow-up required. No free fluid. IMPRESSION: 1. Distended the stomach and multiple small bowel loops suspicious for obstruction in the mid smallbowel. Finalized by Huey Shaffer MD on 04/07/2023 [...] patient/family/caregiver Referring and communicating with other health career development director Jay Borges MD General Surgery Resident, PGY-3 [...] monitor with serial exams [facility] History and physical note* Nazia Chappell MD - 04/08/2023 10:41 AM EST Images from the original note were not included. GENERAL HISTORY AND PHYSICAL: 04/08/23 PROBLEM: Principal Problem: SBO (small bowel obstruction) ([facility]) HISTORY OF PRESENT ILLNESS: Amol Taylor is an 68 y.o. with a past medical history of seizure disorder, vagus nerve stimulator, small-bowel obstruction, MR DD, BPH who was brought to the ER with complaints of vomiting . He was subsequently transferred to [facility] ER. His CT scan showed concerns for small-bowel obstruction. General surgery evaluated the patient. He has an NG tube in place. History is limited as patient is not able to provide a history and is mostly obtained from reviewing the chart. Patient at present has a NG tube in place and says he feels comfortable. Is denying anypain anywhere or any other complaints. 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(jerking motions) // has a VNS implant which decreased grand mal seizures/ jerking episod weekly Uninodular goiter Urine incontinence PAST SURGICAL HISTORY: Past Surgical History: Procedure Laterality Date CLAVICLE SURGERY COLONOSCOPY CYSTOCELE REPAIR 2016 EXCHANGE STIMULATOR BATTERY VAGAL NERVE N/A 03/23/2020 Performed by Nicola Mahan MD at 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 2004 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 [...] level: Not on file Occupational History 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 18 g 0 calcium [...] units tablet Take 1 tablet (1,000 Units total)by mouth daily. 90 tablet 1 finasteride (PROSCAR) [...] Small-bowel obstruction History of seizure disorder MR DD History of BPH PLAN: Small-bowel obstruction-management as per general surgery team, has a NG tube in place Of seizure disorder- presently NPO, nursing in the process of obtaining medication list from nursing facility, will change to IV if possible, may need neurology if multiple oral medication, vagal nerve stimulator in place, per chart magnet has been misplaced History of MR DD History of BPH DVT prophylaxis-subcu heparin Needs a med rec once medication list obtained from facility [facility] Emergency department Note* Kari Felix RN - 04/08/2023 7:10 AM EST Service Coordinator Elderly Facility RN spoke to Legal Guardian Elizabeth. Pat addressed concerns about vagal nerve stimulator and magnet not with patient for epilepsy. Dr. Gilman notified and aware. * Ellen Orozco RN - 04/08/2023 5:39 AM EST Pt transfer from [place]. History of SBO. Begun having n/v, found to have multiple SBO per sending facility report. NG in place to low intermittent suction. Received zofran and morphine JOB MOLDER. Denies symptoms at this time. * Deneen Jeffrey MD - 04/08/2023 5:37 AM EST Images from the original note were not included. History Chief Complaint Patient presents with Vomiting Initial evaluation by Dr. Jeffrey 68 y.o. pt. presents to ED as a transfer from [place] [facility] due to small bowel obstruction. Patient presented to outside ED due to decreased bowel movements. Patient has a history of MRDD and multiple abdominal surgeries. On arrival to [place] ED, patient has no complaints. Denies pain. NG tube in place. 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: Patient Patient Active Problem List Diagnosis Seizures ([facility]) Mental retardation Obesity Balance problem Osteoarthritis Left arm weakness Bowel obstruction ([facility]) Eczema Preventative health care BPH (benign prostatic hyperplasia) Osteopenia Seborrheic dermatitis Medicare annual wellness visit, subsequent Vitamin D deficiency Respiratory crackles Hospital discharge follow-up SBO (small bowel obstruction) ([facility]) Past Medical History: Diagnosis Date Abdominal hernia large but surgical risk Abnormal result of iron profile testing chronic ds Allergic Allergic rhinitis Balance problem falls with several fx// wears helment for protection Bowel obstruction ([facility]) 2016 and Oct BPH (benign prostatic hyperplasia) sees urology 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(jerking motions) // has a VNS implant which decreased grand mal seizures/ jerking episod weekly Uninodular goiter Urine incontinence Past Surgical History: Procedure Laterality Date CLAVICLE SURGERY COLONOSCOPY CYSTOCELE REPAIR 2015 EXCHANGE STIMULATOR BATTERY VAGAL NERVE N/A 03/23/2020 Performed by Nicola Mahan MD at [facility] 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 2004 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 [...] for abdominal distention, abdominal pain, constipation, diarrhea, nauseaand vomiting. Genitourinary: Negative for difficulty urinating. Musculoskeletal: [...] of 04/08/23 0751 SBO (small bowel obstruction) ([facility]) Seizure disorder ([facility]) MDM Medical Decision Making I, Conor Lord (scribe) documented for Dr. Jeffrey. Chart Reviewed. -- 04/07/23 Outside ED note. Patient had labs and imaging completed. CT abd pelvis notes distended stomach and multiple small bowel moops suspicious for obstruction in the mid small bowel. Chief Complaint: SBO Differential Diagnosis includes but is not limited to: SBO Plan of Care: Will repeat Labs & Consult General Surgery 5:55 AM -- Dr. Jeffrey spoke with gen surg and they will [...] (98.4 F) (Oral) Resp 22 SpO2 93% PROGRESS NOTES The plan of care has been discussed [...] premix) (0 mg intravenous Stop Bag 04/08/23 1606) levETIRAcetam (KEPPRA) 2,000 mg in sodium chloride 0.9 % 120 mL IVPB (0 mg intravenous Stop Bag 04/08/23 2147) potassium chloride IVPB 10 mEq/100 mL in water (0.1 mEq/mL premix) (has no administration in time range) magnesium sulfate IVPB 4000 mg/100 mL in iso-osmotic water (40 mg/mL premix) (has no administrationin time range) magnesium sulfate IVPB 2000 mg/50 [...] you. Diagnosis: 1. SBO (small bowel obstruction) ([facility]) 2. Seizure disorder ([facility]) Disposition: Patient's disposition: Admit Patient's condition is stable. Provider Statement By electronically signing this emergency patient record, the Emergency Physician/PRODUCTION WOOD CRAFTSMAN/PA-C attests that all entries made into the electronic medical record by edgar Nolan prior to the Physician/PRODUCTION WOOD CRAFTSMAN/PA-C signature reflect an accurate accounting of the evaluation and care rendered by that Emergency Physician/PRODUCTION WOOD CRAFTSMAN/PA-C. The Emergency Physician/PRODUCTION WOOD CRAFTSMAN/PA-C assumes full responsibility for those entries. The Emergency Physician/PRODUCTION WOOD CRAFTSMAN/PA-C also attests that any patient testing or treatment that was instituted by nursing staff in accordance to Emergency Department Preemptive Guidelines have been reviewed and unless so stated elsewhere in this patient chart, the Physician/PRODUCTION WOOD CRAFTSMAN/PA-C agrees with the testing and care provided. No Additional Attestations Conor Lord 04/08/23 0538 Deneen Jeffrey MD 04/08/23 0539 Conor Lord 04/08/23 0549 Conor Lord 04/08/23 0557 Dorothy Lowery 04/08/23 0739 Dorothy Lowery 04/08/23 0743 Dorothy Lowery 04/08/23 0751 Deneen Jeffrey MD 04/09/23 0305 * Beena Kirk RN - 04/08/2023 5:31 AM EST Bed: 17 Expected date: Expected time: Means of arrival: [facility] Comments: Amol Taylor is a 68 year old male with MRDD with history of intussusception followed by multiple small bowel obstructions. Has small bowel obstruction on CT. Dr. Dave would like patient to ED to beevaluated, determination of medicine vs surgery admission. Nml vitals. WBC 12.9. Helmet on at baseline, teeth clacking. Hx of difficulty intubation reportedly. RN 0437 1700 out NG 1 Emesis prior to placement USIV used for difficult stick Still need urine 113/71 69 96% RA Loading right now EMS: No symptoms at time 75hr 96% RA 109/51 ETA 5 min [facility] Discharge instructions Follow Up Care 02/16/2023 10:34:53 With:ELSIE CASTANON PA-C, URL Address: [address] [place] [address] When: Unknown [facility] 09-09-2023 Hospital Discharge instructions Patient Education 11/11/2022 10:19:16 Bowel Obstruction Bowel Obstruction A bowel obstruction is a blockage in the small or large bowel. The bowel is also called the intestine. It is a long tube that connects the stomach to the anus. When a person eats and drinks, food andfluids go from the mouth to the stomach [...] passing through the bowel as they normally doduring digestion. The bowel can become partially or [...] Follow these instructions at home: Medicines Take aqwt-crd-yiblnko and prescription medicines only as told by your health care provider. If you were prescribed an antibiotic medicine, take it as told by your health care provider. Do notstop taking the antibiotic even if you start [...] to keep your urine pale yellow. ?Take ulxc-yhc-gmbbejg or prescription medicines. ?Eat foods that are [...] you need help quitting, ask your health careprovider. Contact a health care provider if: You [...] passing through the bowel as they normally doduring digestion. Treatment for this condition depends on the cause and severity of the problem. It may include fluids and pain medicines through an IV, a simple diet, a nasogastric tube, or surgery. Follow instructions from your health care provider about eating restrictions. You may need to avoidsolid foods and consume only clear liquids until your condition improves. This information is not intended to replace advice given to you by your health care provider. Make sure you discuss any questions you have with your health care provider. Document Revised: 04/03/2021 Document Reviewed: 04/03/2021 [employer] Patient Education 2022 Map Decisions. Follow Up Care 11/08/2022 08:52:02 With:CARSON DIOR MD, FAM Address: [address] [place] [address] When: Unknown [facility]09-06-2023 Evaluation + Plan noteExtracted from: Title:Admission H & PAuthor:Melchor Rivera DODate:11/08/22 Acute diarrhea (R19.7: Diarr hea, unspecified) Acute [...] 3 times daily for DVT prophylaxis Extracted from:Title:ED NoteAuthor:Eliezer Landa DODate:11/08/22 Acute diarrhea (R19.7: Diarr hea, unspecified) Acute [...] Appointments Appointment Date:11/17/2022 10:30:00 AM Scheduled Provider: Location:[facility] Appointment Type:Trauma Subsequent Follow Up ([facility]) Appointment Date:02/16/2023 10:15:00 AM Scheduled Provider:Yasmani CAMARA MD Location:[facility] Lizette Appointment Type:URO Office Visit [facility]07-06-2023 History of Present illness Narrative* Carlie Sanchez RN - 09/07/2022 4:55 PM EDT Patient discharged, via wheelchair, to [facility] van with hydroelectric station operator at this time. All belongings and patient information packet in hand. * Carlie Sanchez RN - 09/07/2022 3:55 PM EDT Service Coordinator Elderly Facility and ARA [place] manager, called report to Laura at [facility] at this time. All questions answered, callback number given in case of further questions. Will continue to monitor. * Jami Llamas PTA - 09/07/2022 3:29 PM EDT Physical Therapy Facility/Department: [facility] Daily Treatment Note NAME: Amol Taylor : 1955 Date of Service: 09/07/2022 Discharge Recommendations: Continue to assess pending progress Patient Diagnosis(es): The encounter diagnosis was Small bowel obstruction (HCC). Assessment Assessment: Seated ther-ex completed this session with fair tolerance but max v/c and tactile cues needed to stay on task. Per nursing Pt is to go back to [facility] this afternoon. Activity Tolerance: Treatment limited secondary [...] In 1500 Time Out 1512 Minutes 12 Jami Llamas PTA * KRYSTIN Farley - 09/07/2022 2:30 PM EDT Patient is discharge back to [facility] today. The guardian aware of the discharge. [facility] aware of discharge and will provide the transportation. KRYSTIN Farley * SHANTI Rudd - 09/07/2022 10:45 AM EDT Occupational Therapy Facility/Department: [facility] Daily Treatment Note NAME: Amol [...] Minutes 18 SHANTI Rudd * Luz Marina Anaya MD - 09/07/2022 10:34 AM EDT Hospital [...] 09/07/2022 9:45 AM EDT Physical Therapy Facility/Department: [facility] Daily Treatment Note NAME: Amol [...] In 903 Time Out 921 Minutes 18 Shoshana Yo PTA * Carlie [...] follow her about it. Shae Whitehead RN [facility] and [facility] Nurse Coordinator 09/07/2022 7:36 AM * Luz Marina Anaya MD - 09/06/2022 2:44 PM EDT Hospital [...] 09/06/2022 12:26 PM EDT Occupational Therapy Facility/Department: [facility] Daily Treatment Note NAME: Amol [...] of Care;Home Exercise Program Education Method: Demonstration;Verbal ([place], tactile cueing) Barriers to Learning: Cognition Education [...] muscle mass loss Fluid Accumulation: Mild Extremities Zoning Engineer Strength: Not Performed Electronically signed by Rinku Montalvo RDN, LD 09/06/2022, 12:20 PM * Ramandeep Coffey PTA - 09/06/2022 9:33 AM EDT Physical Therapy Facility/Department: [facility] Daily Treatment Note NAME: Amol [...] Minutes 14 Ramandeep Coffey PTA * Lyla Burciaga MD - 09/06/2022 9:15 AM EDT Images from the original note were not included. [address], [address] Attestation Patient: Amol Taylor Date of Admission: 09/02/2022 5:58 PM Hospital Day # 4 Date of Evaluation: 09/06/2022 I personally evaluated and examined the patient [id number] in conjunction with the PA/PRODUCTION WOOD CRAFTSMAN and agree with the management and dispostition of the patient. Please see the PA/PRODUCTION WOOD CRAFTSMAN's note for full details.My gee findings are: SUBJECTIVE: Patient seen for follow up of SBO (small bowel obstruction) ([facility]). Patient seen and examined at [...] with the plan as outlined in the PRODUCTION WOOD CRAFTSMAN/PA's note Disposition: Discharge plan is pending GS recommendations and improvement of SBO. Please note that this chart was generated using voice recognition [employer] dictation software. Although every effort was made to ensure the accuracy of this automated driller and broacher, some errors in driller and broacher may have occurred. Lyla Burciaga MD 09/06/2022 5:25 PM Progress Note SUBJECTIVE: [...] Profile: Recent Labs 09/04/22 0550 09/05/22 0535 09/06/225 NA 143 141 142 K 3.8 3.7 [...] MAKING: Primary Problem(s): SBO (small bowel obstruction) ([facility]) Differential diagnoses: Ileus Condition is [...] Vimpat Nutrition status: at risk for malnutrition Dermatology Nurse Practitioner consult initiated Hospital Prophylaxis: DVT: Lovenox Stress Ulcer: PPI Disposition: Shared decision making: All test results, treatment options and disposition options were discussed with the patient today Social determinants of health that may impact management: none Code status: Full Code Disposition: Discharge plan is home [facility] Advanced Care Planning documentation: [x] I have [...] the patient's medical record. [DOES NOT SATISFY [facility] PERFORMANCE] Dorota Woodson APRN - PATTERN PAINTER , PROGRAM DIR, PRODUCTION WOOD CRAFTSMAN-C Hospitalist Medicine 09/06/2022, 9:15 AM * Connie [...] Zavala RCP - 09/05/2022 4:00 PM EDT Service Coordinator Elderly Facility called by RN to assess pt's mucous clearing ability. Pt was snoring loudly when real estate underwriter entered the room. Service Coordinator Elderly Facility woke pt up and asked pt to cough. Pt coughed and was able to clear some of the congestion at back of throat. Service Coordinator Elderly Facility orally suctioned pt to assist with mucous clearing. * Georgie Dillard RN - 09/05/2022 2:42 PM EDT Reassessment and vitals obtained at this time as charted. Patient remains slightly tachypneic, vitals otherwise WNL. Patient denies pain. Patient remains oriented to person only at this time. Patientknows he is in the hospital but is unable to tell real estate underwriter which hospital or town he is in. Rhonchi remains present to upper and middle lobes of lungs, lower lung sounds diminished. Patient does continue to have a moist cough. Assessment otherwise as charted, see flowsheets. Patient was also changed at this time for incontinence of urine and large amount of stool, brief changed and gina care provided. Patient was then assisted to lay on his left side with pillow support. Patient resting in the bed with call light in reach and bed alarm on, denies any other needs at this time. Care ongoing. * Luz Marina Anaya MD - 09/05/2022 11:29 AM EDT Hospital [...] 09/05/2022 9:14 AM EDT Occupational Therapy Facility/Department: [facility] Daily Treatment Note NAME: Amol [...] Minutes 26 SHANTI Armstrong * Lillian Hernandez, JOB MOLDER - 09/05/2022 9:13 AM EDT Physical Therapy Facility/Department: [facility] Daily Treatment Note NAME: Amol [...] movement and was repositioned in the bed. Service Coordinator Elderly Facility asked Dorota FREDERICK about suppository, per Dorota, hold suppository this morning. Patient is resting in the bed, denies any other needs atthis time. Call light in reach, bed alarm on, care ongoing. * RAISA Mejia CNP - 09/05/2022 8:04 AM EDT Progress Note SUBJECTIVE: Patient seen for f/u of SBO (small bowel obstruction) (HCC). He resting in bed no distress. Pulled [...] Vimpat Nutrition status: at risk for malnutrition Dermatology Nurse Practitioner consult initiated Hospital Prophylaxis: DVT: Lovenox Stress [...] Dorota Woodson APRN - OTONIEL , RAISA, PRODUCTION WOOD CRAFTSMAN-C Hospitalist Medicine 09/05/2022, 8:05 AM Associated attestation - Lyla Burciaga MD - 09/05/2022 11:28 AM EDT Images from the original note were not included. [address], [place], [place], [address] Attestation Patient: Amol Taylor Date of Admission: 09/02/2022 5:58 PM Hospital Day # 3 Date of Evaluation: 09/05/2022 I personally evaluated and examined the patient [id number] in conjunction with the PA/PRODUCTION WOOD CRAFTSMAN and agree with the management and dispostition of the patient. Please see the PA/PRODUCTION WOOD CRAFTSMAN's note for full details.My gee findings are: [...] with the plan as outlined in the PRODUCTION WOOD CRAFTSMAN/PA's note Disposition: Discharge plan is pending Please note that this chart was generated using voice recognition Dragon dictation software. Although every effort was made to ensure the accuracy of this automated driller and broacher, some errors in driller and broacher may have occurred. Lyla Burciaga MD 09/05/2022 11:27 AM * Georgie Dillard RN - 09/05/2022 7:45 AM EDT Therapy at bedside at this time and states that when they moved the patient just slightly, his NG tube came out. Service Coordinator Elderly Facility updated Dorota FREDERICK about NG tube being removed accidentally, per Dorota, leave NG tube out until Dr. Anaya sees the patient. Care ongoing. * Connie [...] Sanchez RN - 09/04/2022 4:57 PM EDT Service Coordinator Elderly Facility called Dr. Anaya at this time to inform of pt BM earlier today per Dorota FREDERICK. states alright, very well, thank ya. Will continue to monitor. * KRYSTIN Torres - 09/04/2022 4:54 PM EDT Attempts made to contact legal guardian without success. Will try again at a later time. KRYSTIN Torres 09/04/2022 * Carlie Sanchez RN - 09/04/2022 2:16 PM EDT Ramesh with mat cleaning machine operator called at this time regarding midline catheter placement. RN states he will be here in about 35 minutes. Peripheral IV continues to work at this time while awaiting midline. Will continue to monitor. * Ramandeep Coffey PTA - 09/04/2022 1:59 PM EDT Physical Therapy Facility/Department: [facility] Daily Treatment Note NAME: Amol [...] incontinent BM. See flowsheets. Dorota FREDERICK notified. PATTERN PAINTER states [facility]! Will continue to monitor. * Carlie Sanchze RN - 09/04/2022 12:25 PM EDT mat cleaning machine operator for Midline catheter placement per order at [...] Fluid Accumulation: No significant fluid accumulation Extremities Zoning Engineer Strength: Not Performed Nutrition Assessment: Inadequate protein-energy intake related to altered GI function as evidenced by other (comment) (small bowel obstruction.)NG to LIWS. PDX=559#, OIO=452# (06/23/2022). Pt is a resident at a [facility],and note recurring small bowel obstructions. Pt is telling real estate underwriter he has to take a bowel [...] Anthropometric Measures: Height: 5' 5 (165.1 cm) [place] Body Weight (IBW): 136 lbs (62 kg) [...] Used for Energy Requirements: Current Energy (kcal/day): 4202-5538 (20-22) Weight Used for Protein Requirements: [place] Protein (g/day): 61.8-74 (1.0-1.2) Method Used for [...] current diet Kimberly Talbert RD, LD Contact: [phone] * Luz Marina Anaya MD - 09/04/2022 11:47 AM EDT Hospital [...] 09/04/2022 10:57 AM EDT Occupational Therapy Facility/Department: [facility] Daily Treatment Note NAME: Amol [...] In 1020 Time Out 1043 Minutes 23 Tonja Coppus, LEDBETTER/L * Ramandeep Coffey, JOB MOLDER - 09/04/2022 9:58 AM EDT [facility] Inpatient/Observation/Outpatient Rehabilitation Date: 09/04/2022 Patient Name: Amol [...] Educated pt on importance of therapeutic participation. Therapist/Sound Art Instructor will attempt to see this patient, at our earliest opportunity. Ramandeep Coffey, JOB MOLDER Date: 09/04/2022 * Dorota Woodson APRN - PATTERN PAINTER - 09/04/2022 6:53 AM EDT Progress Note SUBJECTIVE: Patient seen for f/u of SBO (small bowel obstruction) ([facility]). He resting in bed no [...] 113* 103* Comprehensive Metabolic Profile: Recent Labs 09/02/22 1935 09/03/22 0732 NA 142 145* K 3.7 3.2* [...] MAKING: Primary Problem(s): SBO (small bowel obstruction) ([facility]) Differential diagnoses: Ileus Condition is [...] Vimpat Nutrition status: at risk for malnutrition Dermatology Nurse Practitioner consult initiated Hospital Prophylaxis: DVT: Lovenox Stress Ulcer: PPI Disposition: Shared decision making: All test results, treatment options and disposition options were discussed with the patient today Social determinants of health that may impact management: none Code status: Full Code Disposition: Discharge plan is home [facility] Advanced Care Planning documentation: [x] I have [...] the patient's medical record. [DOES NOT SATISFY [facility] PERFORMANCE] Dorota Woodson APRN - OTONIEL , PROGRAM DIR, PRODUCTION WOOD CRAFTSMAN-C Hospitalist Medicine 09/04/2022, 6:53 AM Associated attestation - Lyla Burciaga MD - 09/04/2022 8:43 PM EDT Images from the original note were not included. [address] , [place], [place], [address] Attestation Patient: Amol Taylor Date of Admission: 09/02/2022 5:58 PM Hospital Day # 2 Date of Evaluation: 09/04/2022 I personally evaluated and examined the patient [id number]-lizt in conjunction with the PA/PRODUCTION WOOD CRAFTSMAN and agree with the management and dispostition of the patient. Please see the PA/PRODUCTION WOOD CRAFTSMAN's note for full details.My gee findings are: SUBJECTIVE: Patient seen for follow up of SBO (small bowel obstruction) ([facility]). Patient seen and examined at [...] with the plan as outlined in the PRODUCTION WOOD CRAFTSMAN/PA's note Disposition: Discharge plan is pending GS is following closely Obtain imaging as indicated Please note that this chart was generated using voice recognition [employer] dictation software. Although every effort was made to ensure the accuracy of this automated driller and broacher, some errors in driller and broacher may have occurred. Lyla Burciaga MD 09/04/2022 8:41 PM * Amarilys Nelson RCP - 09/04/2022 12:45 AM EDT Service Coordinator Elderly Facility asked to help suction pt. Pt coughs when asked and has a good cough. Service Coordinator Elderly Facility orally suctionedback of patient's mouth for some scant clear white secretions. Pt tolerated well. * Kathy Llamas RN - 09/04/2022 12:15 AM EDT Service Coordinator Elderly Facility at bedside at this time to perform [...] Llamas RN - 09/03/2022 6:45 PM EDT Service Coordinator Elderly Facility at chairside at this time to perform [...] 09/03/2022 11:59 AM EDT Physical Therapy Facility/Department: [facility] Physical Therapy Initial Assessment Name: Amol Taylor : 1955 Date of Service: 09/03/2022 Discharge Recommendations: Continue to assess pending progress PT Equipment Recommendations Equipment Needed: No Patient Diagnosis(es): The encounter diagnosis was Small bowel obstruction (HCC). Past Medical History: has a past medical history of MR (mental retardation), SBO (small bowel obstruction) ([facility]), Seizures (HCC), and Ventral hernia. Past Surgical [...] time Social/Functional History Social/Functional History Lives With: ([facility]) Has the patient had two or more falls in the past year or any fall with injury in the past year?: No ADL Assistance: Needs assistance Ambulation Assistance: Needs assistance Transfer Assistance: Needs assistance Active Card Player: No Additional Comments: Pt is a poor historian, however, per chart review and nursing, patient lives in [facility], able to complete transfers and ambulation short [...] without Stair Climbing T-Scale Score : 37.26 (09/03/22 115) Mobility Inpatient CMS 0-100% Score: 63.03 (09/03/22 115) Mobility Inpatient without Stair CMS G-Code Modifier [...] 09/03/2022 11:37 AM EDT Occupational Therapy Facility/Department: [facility] Occupational Therapy Initial Assessment Name: [...] History Social/Functional History Lives With: Other (comment) ([facility]) Has the patient had two or more falls in the past year or any fall with injury in the past year?: No ADL Assistance: Needs assistance Ambulation Assistance: Needs assistance Transfer Assistance: Needs assistance Active Card Player: No Additional Comments: Pt is a poor historian, however, per chart review patient lives in [facility],able to complete transfers and ambulation short distances [...] 09/02/2022 11:14 PM EDT [facility] for [facility]. NG tube in place on admission. Assessment and vital signs as charted. Pt denies pain at this time. Pt is alert and oriented x 3. Pt is from a [facility]. Navigator to be completed. Orders to be reviewed. Bed alarm on. Call light in reach. Will continue to monitor. [facility] Discharge instructions* Discharge Instr - JOYCE* KRYSTIN Farley - 09/07/2022 2:14 PM EDT Continuity of Care Form Patient Name: Amol Taylor : 1955 Admit date: 09/02/2022 Discharge date: 09/07/2022 Code Status Order: Full Code Advance Directives: Admitting Physician: Lyla Burciaga MD PCP: Carson Dior MD Discharging Nurse: Carlie Sanchez RN Discharging Hospital Unit/Room#: 0316/0316-01 Discharging Unit Emergency Contact: Extended Emergency Contact Information Primary Emergency Contact: Susan Smith [facility] Relation: Legal Guardian Secondary Emergency Contact: Eliazar [...] Epilepsy (HCC) G40.909 SBO (small bowel obstruction) ([facility]) K56.609 Mild malnutrition ([facility]) E44.1 Isolation/Infection: Isolation No Isolation [...] Dependent Dressing Dependent Toileting Dependent Feeding Assisted Press Loader Dependent Med Delivery whole and prefers mixed [...] no caffeine Routes of Feeding: Oral Liquids: [place] Thick Liquids Daily Fluid Restriction: no Last [...] Readmission: 29 Discharging to Facility/ Agency Name: [facility] Address:[address] [place] [address] Fax: Dialysis Facility (if applicable) Name: Address: Dialysis Schedule: Phone: Fax: Environmental Technical Officer/Staff Certified Nurse Midwife signature: PHYSICIAN SECTION Prognosis: {Prognosis:8942273308} Condition at Discharge: { Patient Condition:854121569} Rehab Potential (if transferring to Rehab): {Prognosis:9445935931} Recommended Labs or Other Treatments After Discharge: Physician Certification: I certify the above information and transfer of Amol Taylor is necessaryfor the continuing treatment of the diagnosis listed and that he requires [facility] for greater 30days. Update Admission H&P: {CHP DME Changes in HandP:317579246} PHYSICIAN SIGNATURE: {Esignature:889969645} documented in this [facility] Discharge instructions Patient Education 06/27/2022 11:07:19 [...] feel full. Avoid alcohol. General instructions Take hyxs-hdi-mmueivm and prescription medicines only as told by [...] provider. Document Revised: 08/31/2021 Document Reviewed: 08/31/2021 [employer] Patient Education 2022 Map Decisions. Follow Up Care 06/23/2022 13:38:57 With:trauma clinic Address: [address], second floor, [address] [place] [address]- [phone] When: only if needed Comments:Please call to make follow up appointment With:[facility] Address: [address] [address] [facility] (1) When:1 to 2 weeks Comments:Call for followup appointment [facility]04-24-2023 Evaluation + Plan noteExtracted from: Title:Progress/SOAP NoteAuthor:Laney Mitchell PA-C NDate:06/26/22 1. 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 Resumed all homeBPH meds yesterday - finasteride, oxybutynin, flomax - Continue home lacosamide, keppra, lamotrigine, primidone - Nightly trazadone, PRN melatonin per home meds - SCDs, Lovenox for DVT prophylaxis - Remain on RNF Laney Mitchell PA-C Trauma Surgery/Surgical Critical Care/Emergency General Surgery *For urgent issues arising after 4PM during the week or on weekends/holiday, please page the trauma/EGS attending receptionist telephone operator. This patient's plan of care was discussed with Trauma/Emergency General Surgery attending, Dr. Rowland Extracted from:Title:Progress/SOAP NoteAuthor:Henrry MOELLER, Kari Mehta.Date: 06/25/22 1. 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 Resumed all homeBPH meds yesterday - finasteride, oxybutynin, flomax - Continue home lacosamide, keppra, lamotrigine, primidone - Nightly trazadone, PRN melatonin per home meds - SCDs, Lovenox for DVT prophylaxis - Remain on RNF Future Appointments Appointment Date:02/16/2023 10:15:00 AM Scheduled Provider:Yasmani CAMARA MD Location:[facility] Appointment Type:URO Office Visit [facility]04-22-2023 History of Present illness Narrative* Daiana Mercado RN - 06/24/2022 12:41 AM EDT Called [facility] and gave report to nurse who will [...] and other personal belongings sent with patient. Service Coordinator Elderly Facility to call reportto [facility]. * Daiana [...] patients sister with Eta of midnight * Jeanette Chacon MD - 06/23/2022 4:15 PM EDT Physician Progress Note PATIENT: AMOL TAYLOR CSN #: [id number] : 1955 ADMIT DATE: 06/21/2022 11:47 AM DISCH DATE: RESPONDING PROVIDER #: Jeanette Chacon MD QUERY TEXT: Patient admitted with [...] MR (mental retardation), severe Clinical Indicators: from [facility], Per H&P: has MRDD and unable to provide details... Awake, alert and pleasant Treatment: standard safety measures, fall risk interventions, assistance with mobility Annika Casillas, MSN, RN, CCDS, CRCR Clinical Sql Server Developer [phone] Options provided: -- Borderline intellectual disabilities -- [...] on 06/22/2022 2:36 PM Electronically signed by: Jeanette Chacon MD 06/23/2022 4:14 PM * Yennifer El - 06/23/2022 3:35 PM EDT Service Coordinator Elderly Facility spoke with patients sister. Updated her about transfer. * Yennifer El - 06/23/2022 3:17 PM EDT Service Coordinator Elderly Facility attempted to call patients guardian, no answer and no voicemail available. * Dorota Woodson APRN - OTONIEL - 06/23/2022 3:04 PM EDT I attempted to call back and speak to Susan Sarah, Legal Guardian to update her on the acceptance to [facility] and awaiting Transport as he has a bed assignment there, however she did not answer and her Voicemail box was full. I did speak with her in the morning and her request was to go to [facility] to the surgeons that have treated him before. Dorota Woodson, RAISA - PATTERN PAINTER * SHANTI Camacho - 06/23/2022 11:06 AM EDT Occupational Therapy Facility/Department: [facility] MED SURG Daily Treatment Note NAME: Amol Taylor : 1955 Date of Service: 06/23/2022 Discharge Recommendations: Continue to assess pending progress Patient Diagnosis(es): The encounter diagnosis was SBO (small bowel obstruction) ([facility]). Assessment Activity Tolerance: Patient tolerated treatment well [...] 06/23/2022 10:19 AM EDT Patient removed NG. Service Coordinator Elderly Facility notified Dorota FREDERICK and gabriel to leave out. Will try clear liquids * RAISA Mejia CNP - 06/23/2022 8:45 AM EDT Progress Note SUBJECTIVE: Patient seen for f/u of SBO (small bowel obstruction) ([facility]). He resting in bed no [...] IV Keppra, Vimpat Nutrition status: obesity, non-morbid Dermatology Nurse Practitioner consult initiated Hospital Prophylaxis: DVT: Lovenox Stress Ulcer: H2 Klarissa Disposition: Shared decision making: All test results, treatment options and disposition options were discussed with the patient today Social determinants of health that may impact management: MRDD Code status: Full Code Disposition: Discharge plan is home [facility] Advanced Care Planning documentation: [x] I have [...] the patient's medical record. [DOES NOT SATISFY [facility] PERFORMANCE] Dorota Salter-RAISA Acosta - PATTERN PAINTER , PROGRAM DIR, PRODUCTION WOOD CRAFTSMAN-C Hospitalist Medicine 06/23/2022, 8:46 AM Associated attestation - Jeanette Chacon MD - 06/23/2022 4:25 PM EDT Attending Supervising Physician s Attestation Statement I have personally evaluated and examined the patient [id number] in conjunction with the nurse practitioner. I [...] Examined and Reviewed plan of care with PRODUCTION WOOD CRAFTSMAN. Directions and discussion about care and plans. [...] bedside with the patient. Electronically signed by Jeanette Chacon MD * Yennifer El - 06/23/2022 [...] obtained by student RN and reviewed by real estate underwriter. Patients brief dry at this time. [...] muscle mass loss Fluid Accumulation: Mild Extremities Zoning Engineer Strength: Not Performed Nutrition Assessment: Moderate malnutrition r/t altered GI status AEB NPO status d/t medical condition, weight loss greater than 2% within 1 week, nausea, vomiting, diarrhea. Hx: MR, bowel obstruction repair, hernia repair, mod-severe dysphagia. Pt was observed through room window, w/out visual malnutrition indices and s leeping. NG tube in place, currently NPO. 900mL out initially and 400mL overnight, donovan. Pt presented two weeks ago for SBO, from [facility]. [facility], no caffeine, limit greasy foods, [...] Anthropometric Measures: Height: 5' 6 (167.6 cm) [place] Body Weight (IBW): 142 lbs (65 kg) [...] Used for Energy Requirements: Current Energy (kcal/day): 8642-9247 (20-25 k/kcal) Weight Used for Protein Requirements: [place] Protein (g/day): 84-96 (1.3-1.5g/kg) Method Used for Fluid Requirements: 1 ml/kcal Fluid (ml/day): 0mL Nutrition Diagnosis: Moderate malnutrition related to altered [...] Planning: Continue current diet Radha Christina Contact: [phone] * Jeremy Izquierdo RN - 06/22/2022 7:00 [...] at this time. documented in this encounterBON [facility] Work Phone: 1(434) 839-527404-21-2023 Hospital course Narrative* Dorota Perez JoieEarl, PROGRAM DIR - PATTERN PAINTER - 06/23/2022 3:10 PM EDT Discharge Summary Amol Taylor : 1955 Admit date: 06/21/2022 Discharge date: 06/23/2022 Admitting Physician: Jeanette Chacon MD Discharge Diagnoses: Principal Problem: SBO (small bowel obstruction) (HCC) Active Problems: Moderate malnutrition (HCC) Resolved Problems: * No resolved hospital problems. * Hospital Course: Amol Taylor is a 67 y.o. male admitted with SBO. He presented to the ER from [facility] due to vomiting and diarrhea. No melena or hematochezia Patient has MRDD and unable to provide details. During his evaluation in ER he was found to have SBO and admitted with permission of [facility] Surgery. NG was placed to LIWS and large amount of output was seen. This admission will make 3 hospitalizations since May for the same thing. Small bowel follow through was completed and abdominal films monitored. General Surgery consulted. Patient continued to have obstruction. I did speak to [facility] Surgical Team per the Request of [...] Problem List Diagnosis Date Noted Moderate malnutrition ([facility]) 06/22/2022 SBO (small bowel obstruction) ([facility]) 06/21/2022 Epilepsy ([facility]) 12/14/2015 MR (mental retardation), severe 10/20/2013 Small bowel obstruction (HCC) 10/18/2013 Seizures ([facility]) Chronic 10/18/2013 Discharge Medications: Medication [...] up: Patient will be followed by Carson Dior MD in 1-2 weeks CORE MEASURES on Discharge (if applicable) JASON/ARB in CHF: NA Statin in VT: NA ASA in VT: NA Statin in CVA: NA Antiplatelet in CVA: NA Total time spent on discharge services: 40 minutes Including the following activities: Evaluation and Management of patient Discussion with patient and/or surrogate about current care plan Coordination with Case Management and/or Staff Certified Nurse Midwife Coordination of care with Consultants (if applicable) Coordination of care with Receiving Facility Physician (if applicable) Completion of DME forms (if applicable) Preparation of Discharge Summary Preparation of Medication Reconciliation Preparation of Discharge Prescriptions Signed: Dorota Woodson APRN - PATTERN PAINTER, PROGRAM DIR, PRODUCTION WOOD CRAFTSMAN-C 06/23/2022, 3:11 PM Associated attestation - Jeanette Chacon MD - 06/23/2022 4:30 PM EDT Attending Supervising Physician s Attestation Statement I have personally evaluated and examined the patient [id number] in conjunction with the nurse practitioner. I [...] Examined and Reviewed plan of care with PRODUCTION WOOD CRAFTSMAN. Directions and discussion about care and plans. [...] bedside with the patient. Electronically signed by Jeanette Chacon MD documented in this encounterBON [facility] [employer] Work Phone: 1(750) 240-535903-10-2023 History of Present illness Narrative* Anais Addison RN - 05/12/2022 6:51 PM EST Transport arrived to get patient. Belongings and paperwork were sent with the transport team. Service Coordinator Elderly Facility checked the locked cupboard and cabinet for personal belongings. Report was given to transport andpatient is headed out at this time. * Yolanda Pope RN - 05/12/2022 5:15 PM EST Received call from [facility] will be here to pick pt up at 1815. Called Andreas with [facility] and updated her. * Yolanda Pope RN - 05/12/2022 4:57 PM EST Received call from [facility]. ETA is now 2200. Will update [facility] and nursing smoke control supervisor. * Yolanda Pope RN - 05/12/2022 2:05 PM EST Pericare provided. * KRYTSIN Farley - 05/12/2022 12:03 PM EST Patient is discharge back to the [facility] today. The sister is aware of the discharge and good with the discharge today. The [facility] is also aware of the discharge. He will go by ambulance back to [facility]. KRYSTIN Farley * Yolanda Pope RN - [...] If pt needs IV will have nursing smoke control supervisor attempt IV start. * Yolanda Pope RN - 05/12/2022 8:00 AM EST Assisted pt with eating breakfast. Pt started to feed self. Will assess pts level of assistance needed with each meal. * Yolanda Pope RN - 05/12/2022 7:44 AM EST Service Coordinator Elderly Facility to bedside to complete morning assessment. Upon entry to room, pt sitting up in bed, respirations even while on room air. Vitals obtained and assessment completed by Gayatri CHENG precepting with this nurse, see flow sheet for details. Pt denies needs from real estate underwriter at this time. Call light in [...] Well developed, well nourished with no malnutrition Dermatology Nurse Practitioner consult initiated Hospital Prophylaxis: DVT: Lovenox Stress Ulcer: Disposition: Shared decision making: All test results, treatment options and disposition options were discussed with the patient today Social determinants of health that may impact management: Resides in Correction Code status: Full Code Disposition: Discharge plan is pending [facility] Advanced Care Planning documentation: [x] I have [...] the patient's medical record. [DOES NOT SATISFY [facility] PERFORMANCE] Dorota Woodson, RAISA - PATTERN PAINTER , PROGRAM DIR, PRODUCTION WOOD CRAFTSMAN-C [facility] Medicine 05/12/2022, 7:10 AM * Keyanna Friend [...] Coffey RN - 05/11/2022 5:07 PM EST Service Coordinator Elderly Facility spoke with Dr. Patel at this time for order to pull pt's NG tube and place on clear liquid diet. * Cydney Coffey RN - 05/11/2022 3:02 PM EST Service Coordinator Elderly Facility got report from another RN on floor that pt has a seizure implant device on his right side by his armpit. Pt has device/ magnet in locked cabinet. * Cydney Coffey RN - 05/11/2022 1:24 PM EST Service Coordinator Elderly Facility to bedside to complete afternoon assessment. Upon [...] this time. Pt denies further needs from real estate underwriter at this time. Call light in reach. Care ongoing. * Cydney Coffey RN - 05/11/2022 12:49 PM EST Service Coordinator Elderly Facility completed straight cath at this time. Pt tolerated well. Output was 400ml. Pt also was incontinent of bowel at this time and cleaned with ARA Chavez at this time. * Kathy Ospina - 05/11/2022 10:43 AM EST Patient unable to void, bladder scan 398, dorota salter notified * Cydney Coffey RN - 05/11/2022 9:52 AM EST Service Coordinator Elderly Facility spoke with Pharmacy at this time about pt's ATB not scanning in the MAR with partial dose and Pharmacy said to override the medication in the system. * Cydney Coffey RN - 05/11/2022 7:43 AM EST Service Coordinator Elderly Facility to bedside to complete morning assessment. Upon [...] at this time. Pt denies needs from real estate underwriter at this time. Call light in reach. Care ongoing. * Dorota Salter-RAISA Acosta - OTONIEL - 05/11/2022 7:19 AM EST [...] Treatment plan: Consultation: General surgery Imaging: Jennifer WHITEB-No obstruction Medications: IV fluids IV Protonix Medication Monitoring / High Risk Medications: none NG All bowel follow-through with Gastrografin today Up to chair Seizure disorder Condition is a chronic stable condition Treatment plan: Continue current treatment Imaging: no further imaging studies ordered today Medications: IV Keppra IV Vimpat Nutrition status: Well developed, well nourished with no malnutrition Dermatology Nurse Practitioner consult initiated Hospital Prophylaxis: DVT: Lovenox Stress Ulcer: Disposition: Shared decision making: All test results, treatment options and disposition options were discussed with the patient today Social determinants of health that may impact management: Resides in Correction Code status: Full Code Disposition: Discharge plan is pending [facility] Advanced Care Planning documentation: [x] I have [...] the patient's medical record. [DOES NOT SATISFY [facility] PERFORMANCE] Dorota Woodson APRN - OTONIEL , RAISA, PRODUCTION WOOD CRAFTSMAN-C [facility] Medicine 05/11/2022, 7:19 AM Associated attestation - Becca Patel MD - 05/11/2022 4:54 PM EST Attestation 05/11/22 Becca Patel MD Patient: Amol Taylor Date of Admission: 05/08/2022 10:46 PM Hospital Day # 2 Date of Evaluation: 05/11/2022 I personally evaluated and examined the patient [id number] in conjunction with the PRODUCTION WOOD CRAFTSMAN and agree with the management and dispostition of the patient. Please see PRODUCTION WOOD CRAFTSMAN's progress note for full details. My gee [...] Coffey RN - 05/11/2022 1:15 AM EST Service Coordinator Elderly Facility at bedside for shift assessment. Patient is [...] and alarm engaged to promote patient safety. Service Coordinator Elderly Facility encourages patient to use call light for [...] to monitor this shift. * Dorota Woodson, PROGRAM DIR - PATTERN PAINTER - 05/10/2022 7:57 AM EST Progress Note [...] 9.2 Last 3 Blood Glucose: Recent Labs 05/08/22232905/09/2252405/10/22 0535 GLUCOSE 125* 120* 108* Comprehensive Metabolic [...] Well developed, well nourished with no malnutrition Dermatology Nurse Practitioner consult initiated Hospital Prophylaxis: DVT: Lovenox Stress Ulcer: Disposition: Shared decision making: All test results, treatment options and disposition options were discussed with the patient today Social determinants of health that may impact management: Resides in Correction Code status: Full Code Disposition: Discharge plan is pending [facility] Advanced Care Planning documentation: [x] I have [...] the patient's medical record. [DOES NOT SATISFY [facility] PERFORMANCE] Dorota Woodson APRN - OTONIEL , RAISA, PRODUCTION WOOD CRAFTSMAN-C [facility] Medicine 05/10/2022, 7:57 AM Associated attestation - Becca Patel MD - 05/10/2022 2:23 PM EST Attestation 05/10/22 Becca Patel MD Patient: Amol Taylor Date of Admission: 05/08/2022 10:46 PM Hospital Day # 1 Date of Evaluation: 05/10/2022 I personally evaluated and examined the patient [id number] in conjunction with the PRODUCTION WOOD CRAFTSMAN and agree with the management and dispostition of the patient. Please see PRODUCTION WOOD CRAFTSMAN's progress note for full details. My gee [...] RN - 05/09/2022 3:30 PM EST Rizwan PRODUCTION WOOD CRAFTSMAN at bedside. * Rsosi Butts RN - 05/09/2022 9:36 AM EST Service Coordinator Elderly Facility contacted Dr. Conde office and gave consult. [...] loss Fluid Accumulation: No significant fluid accumulation Zoning Engineer Strength: Not Performed Nutrition Assessment: Inadequate nutrient intakes r/t altered GI status, AEB NPO and NGT suction. 2950 ml out initially, but only 50 ml out since canister replaced overnight. Uncertain weight history, with losses from historical values noted. 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 Is without visual malnutrition indices which may accompany singnificant weight losses. Ca++ mildly elevated and would ? volume deficit vs. over-supplmentation (on Ca++ supps uniform force captain). History or low vit D, on supplement uniform force captain. Asleep with NGT in place. Nutrition Related Findings: lower lean body mass. hypoactive b/s. Wound Type: None Current Nutrition Intake & Therapies: Average Meal Intake: NPO Average Supplements Intake: NPO Diet NPO Anthropometric Measures: Height: 5' 6 (167.6 cm) [place] Body Weight (IBW): 142 lbs (65 kg) [...] Used for Energy Requirements: Current Energy (kcal/day): 5269-6835 (18-22) Weight Used for Protein Requirements: [place] Protein (g/day): 77-90 (1.2-1.4) Method Used for [...] Discharge Planning: Too soon to determine Rinku Katia, RD, NNEKA Contact: [phone] * Rossi Butts RN - 05/09/2022 7:15 [...] to room [address] Freeman was contacted by ER about patients case. Patient is alert and oriented x4 with a history of MRDD and seizures. Patient denies pain at this time.Patient admission assessment and vitals completed along with navigator and medication list. Patienthas an NG in place that is set at low intermittent suction. Patient is from [facility] and he states that he uses a wheelchair to get around. Patient assisted with getting comfortable in bed. Patient states no further needs, call light is in reach, will continue to monitor. documented in this encounterBON [facility] [employer] Work Phone: 1(830) 722-959103-10-2023 Hospital course Narrative* Dorota Woodson, RAISA - PATTERN PAINTER - 05/12/2022 11:08 AM EST Discharge Summary [...] presented to the emergency room from the [facility] due to vomiting. Patient has history of [...] to discharge patient today back to his [facility]. Consultants: Dr. Freeman, general surgery Procedures: none Complications: none Discharge [...] Active Problem List Diagnosis Date Noted Epilepsy ([facility]) 12/14/2015 MR (mental retardation), severe 10/20/2013 Small bowel obstruction ([facility]) / Operation 10-19-2013 10/18/2013 Seizures ([facility]) Chronic 10/18/2013 Discharge Medications: Medication [...] These medications were sent to [id number] - [place], [place] - [address] - P [phone] F [phone] [place] [id number] polyethylene glycol 17 g packet Patient Instructions: Activity: activity as tolerated Diet: regular diet Wound Care: none needed Other: None Disposition: Discharge to Home Follow up: Patient will be followed by Carson Dior MD in 1-2 weeks CORE MEASURES on Discharge (if applicable) JASON/ARB in CHF: NA Statin in VT: NA ASA in VT: NA Statin in CVA: NA Antiplatelet in CVA: NA Total time spent on discharge services: 40 minutes Including the following activities: Evaluation and Management of patient Discussion with patient and/or surrogate about current care plan Coordination with Case Management and/or Staff Certified Nurse Midwife Coordination of care with Consultants (if applicable) Coordination of care with Receiving Facility Physician (if applicable) Completion of DME forms (if applicable) Preparation of Discharge Summary Preparation of Medication Reconciliation Preparation of Discharge Prescriptions Signed: Dorota Woodson, RAISA - PATTERN PAINTER, PROGRAM DIR, PRODUCTION WOOD CRAFTSMAN-C 05/12/2022, 11:08 AM Associated attestation - Becca Patel MD - 05/12/2022 1:06 PM EST I personally evaluated and examined the patient face to face in conjunction with the APC and agree with the management and disposition of the patient. My gee findings are: Patient ID: Amol Taylor [id number] Admission date: 05/08/2022 Discharge date: 05/12/2022 Admitting Physician: Becca Patel MD Primary Care Physician: Carson Dior MD Primary Discharge Diagnoses: Patient Active Problem List Diagnosis Date Noted Epilepsy (HCC) 12/14/2015 MR (mental retardation), severe 10/20/2013 Small bowel obstruction (HCC) / Operation 10-19-2013 10/18/2013 Seizures ([facility]) Chronic 10/18/2013 Additional Diagnoses: Diagnosis [...] presented to the emergency room from the [facility] due to vomiting. Patient has history of [...] be to discharge patient today backto his [facility]. Consultants: Gen surgery Procedures: none Complications: none [...] # 1.30 1.10 - 3.70 k/uL Absolute [place] # 0.58 0.10 - 1.20 k/uL Absolute [...] # 1.88 1.10 - 3.70 k/uL Absolute [place] # 1.00 0.10 - 1.20 k/uL Absolute [...] # 1.45 1.10 - 3.70 k/uL Absolute [place] # 0.87 0.10 - 1.20 k/uL Absolute [...] # 1.27 1.10 - 3.70 k/uL Absolute [place] # 0.98 0.10 - 1.20 k/uL Absolute [...] These medications were sent to [id number] - [place], [place] - [address] - P [phone] F [phone] [place] [address] polyethylene glycol 17 g packet Resume all [...] Patel MD MD documented in this encounterBON [facility]ZONA [facility]OSPITALSenti[facility] Phone: 1(374) 981-420203-10-2023 Hospital Discharge instructions* Discharge Instr - JOYCE* Yolanda Pope RN - 05/12/2022 9:46 AM EST Continuity of Care Form Patient Name: Amol Taylor : 1955 Admit date: 05/08/2022 Discharge date: 05/12/22 Code Status Order: Full Code Advance Directives: Admitting Physician: Becca Patel MD PCP: Tyra Robles DO (Inactive) Discharging Nurse: Yolanda Pope Discharging Hospital Unit/Room#: 0301/0301-01 Discharging Unit Emergency Contact: Extended Emergency Contact Information Primary Emergency Contact: Susan [facility] Relation: Legal Guardian Secondary Emergency Contact: Eliazar [...] Dependent Toileting Dependent Feeding Assisted at times Press Loader Dependent Med Delivery whole we were mixing [...] Readmission: 8 Discharging to Facility/ Agency Name: [facility] Address:[address] [place] [address] Phone: Fax: Dialysis Facility (if applicable) Name: Address: Dialysis Schedule: Phone: Fax: Environmental Technical Officer/Staff Certified Nurse Midwife signature: PHYSICIAN SECTION Prognosis: {Prognosis:[id number]} Condition at Discharge: { Patient Condition:319837722} Rehab Potential (if transferring to Rehab): {Prognosis:1782022258} Recommended Labs or Other Treatments After Discharge: Physician Certification: I certify the above information and transfer of Amol Taylor is necessaryfor the continuing treatment of the diagnosis listed and that he requires Intermediate/Mental Retardation/Developmental Disabilities Care for greater 30 days. Update Admission H&P: {CHP DME Changes in HandP:400204895} PHYSICIAN SIGNATURE: {Esignature:[id number]} documented in this encounterBON [facility] [employer] Phone: [phone]) 472-354305-03-2022 Hospital Discharge instructions Patient Education 07/05/2021 13:11:32 [...] including vitamins, herbs, eye drops, creams, and ezqp-ezp-emkcaoy medicines. Any problems you or family members [...] provider tells you to take them. ?Taking iqou-twa-sbxluzq medicines, vitamins, herbs, and supplements. You may [...] 07/24/2011 Document Revised: 07/24/2019 Document Reviewed: 07/24/2019 [employer] Patient Education 2020 Map Decisions. Follow Up Care 06/11/2021 15:29:21 With:trauma clinic Address: [address] [place] [address], second floor, [address] [place] [address]- [phone] When:1 week Comments:Follow with surgery clinic on Sunday07/08/21 for wound check. [facility]05-01-2022 Evaluation + Plan noteExtracted from: Title:ACS Progress/SOAP NoteAuthor:Kari Sales MDDate:07/03/21 1. Small bowel obstruction ( K56.609: Unspecified [...] discharge when SNF available. He lives in [facility] and current wound care/monitored meals is too extensive for his usual [facility] at this time Extracted from:Title:Progress/SOAP NoteAuthor:Henrry MOELLER, Kari MccollumDate: 07/02/21 1. Small bowel obstruction ( K56.609: Unspecified [...] meds - labs in the AM Extracted from:Title:Progress/SOAP NoteAuthor:Henrry MOELLER, Kari MccollumDate: 06/30/21 1. Small bowel obstruction ( K56.609: Unspecified [...] for recurrent bowel obstructions - Regular diet; REGULATORY ADMINISTRATOR eval due to concern for aspiration. Transitioned [...] hematoma - MSSA, transitioned from vanc/ceftriaxone to ancef,end date 07/02. Continue packing changes with kerlix, appropriate for nursing to perform - No indication for transfusion - Continue SCDs and heparin subq for DVT ppx. - Maintain PIVs - No indication for ulcer ppx - No glycemic issues - Continue home meds [2] Extracted from:Title:Progress/SOAP NoteAuthor:Laney Mitchell PA-C NDate:06/29/21 1. Small bowel obstruction ( K56.609: Unspecified [...] Continue home meds Laney Mitchell PA-C Ext: [phone], available Sunday-Sunday 8am-4pm Trauma Surgery/Surgical Critical Care/Acute Care Surgery *For urgent issues arising after 4PM during the week or on weekends/holiday, please page the trauma/acute care surgery attending receptionist telephone operator. This patient's plan of care was discussed [...] 4 mg= 1 tab(s), Oral, q8hr Extracted from:Title:Progress/SOAP NoteAuthor:Laney Mitchell PA-C NDate:06/28/21 1. Small bowel obstruction ( K56.609: Unspecified [...] wound dressing/packing changes. Packed with Kerlix and coverwith ABD, nursing okay for wound changes. - No indication for transfusion - Continue SCDs and heparin subq for DVT ppx. - Maintain PIVs - No indication for ulcer ppx - No glycemic issues - Continue home meds Laney Mitchell PA-C Ext: [phone], available Sunday-Sunday 8am-4pm Trauma Surgery/Surgical Critical Care/Acute Care Surgery *For urgent issues arising after 4PM during the week or on weekends/holiday, please page the trauma/acute care surgery attending receptionist telephone operator. This patient's plan of care was discussed with Trauma/Surgery Floor attending, Dr. Sales Physician Note: I have personally performed a face to face diagnostic evaluation on this patient. I have reviewed and agree with the care plan. Kari Sales MD Trauma [facility]er /[facility] Trauma and Emergency General Surgery Extracted from:Title:Progress/SOAP NoteAuthor:Laney Mitchell PA-C NDate:06/27/21 1. Small bowel obstruction ( K56.609: Unspecified [...] Continue home meds Laney Mitchell PA-C Ext: [phone], available Sunday-Sunday 8am-4pm Trauma Surgery/Surgical Critical Care/Acute Care Surgery *For urgent issues arising after 4PM during the week or on weekends/holiday, please page the trauma/acute care surgery attending receptionist telephone operator. This patient's plan of care was discussed with Trauma/Surgery Floor attending, Dr. Sales Extracted from:Title:Progress/SOAP NoteAuthor:Laney Mitchell PA-C NDate:06/24/21 1. Small bowel obstruction ( K56.609: Unspecified [...] Remain on RNF Laney Mitchell PA-C Ext: [phone], available Sunday-Sunday 8am-4pm Trauma Surgery/Surgical Critical Care/Acute Care Surgery *For urgent issues arising after 4PM during the week or on weekends/holiday, please page the trauma/acute care surgery attending receptionist telephone operator. This patient's plan of care was discussed with Trauma/Surgery Floor attending, Dr. Pantoja Extracted from:Title:Progress/SOAP NoteAuthor:Laney Mitchell PA-C NDate:06/23/21 1. Small bowel obstruction ( K56.609: Unspecified [...] Remain on RNF Laney Mitchell PA-C Ext: [phone], available Sunday-Sunday 8am-4pm Trauma Surgery/Surgical Critical Care/Acute Care Surgery *For urgent issues arising after 4PM during the week or on weekends/holiday, please page the trauma/acute care surgery attending receptionist telephone operator. This patient's plan of care was discussed with Trauma/Surgery Floor attending, Dr. Pantoja Extracted from:Title:Progress/SOAP NoteAuthor:Laney Mitchell PA-C NDate:06/22/21 1. Small bowel obstruction ( K56.609: Unspecified [...] Remain on RNF Laney Mitchell PA-C Ext: [phone], available Sunday-Sunday 8am-4pm Trauma Surgery/Surgical Critical Care/Acute Care Surgery *For urgent issues arising after 4PM during the week or on weekends/holiday, please page the trauma/acute care surgery attending receptionist telephone operator. This patient's plan of care was discussed with Trauma/Surgery Floor attending, Dr. Pantoja Extracted from:Title:Progress/SOAP NoteAuthor:Laney Mitchell PA-C NDate:06/21/21 1. Small bowel obstruction ( K56.609: Unspecified [...] Remain on RNF Laney Mitchell PA-C Ext: [phone], available Sunday-Sunday 8am-4pm Trauma Surgery/Surgical Critical Care/Acute Care Surgery *For urgent issues arising after 4PM during the week or on weekends/holiday, please page the trauma/acute care surgery attending receptionist telephone operator. This patient's plan of care was discussed with Trauma/Surgery Floor attending, Dr. Pantoja Extracted from:Title:Progress/SOAP NoteAuthor:Kari Sales MD.Date: 06/19/21 1. Small bowel obstruction ( K56.609: Unspecified [...] sister, pre-cert needed - May transfer to [facility] with telemetry Extracted from:Title:Progress/SOAP NoteAuthor:Kari Sales MDDate: 06/18/21 1. Small bowel obstruction ( K56.609: Unspecified [...] will removal - PT/OT recommending rehab Extracted from:Title:[place]/SOJAYLON NoteAuthor:Kari Sales MDDate: 06/17/21 1. Small bowel obstruction ( K56.609: Unspecified [...] fevers - continue to closely monitor. Extracted from:Title:Progress/SOAP NoteAuthor:Laney Mitchell PA-C NDate:06/15/21 1. Small bowel obstruction ( K56.609: Unspecified [...] high risk decompensation Laney Mitchell PA-C Ext: [phone], available Sunday-Sunday 8am-4pm Trauma Surgery/Surgical Critical Care/Acute Care Surgery *For urgent issues arising after 4PM during the week or on weekends/holiday, please page the trauma/acute care surgery attending receptionist telephone operator. This patient's plan of care was discussed with Trauma/Surgery Floor attending, Dr. Sales Physician Note: I have personally performed a face to face diagnostic evaluation on this patient. I have reviewed and agree with the care plan. aKri Sales MD Trauma Saw Sharpener /[facility] Trauma and Emergency General Surgery Extracted from:Title:Post-anesthesia - GeneralAuthor:Alvaro Blanco Jr., DO Date:06/14/21 Plan Transfer/ Discharge: Condition stable. Extracted from:Title:Pre-anesthesia - AdultAuthor:Alvaro Blanco Jr., DO GDate: 06/14/21 Plan [place] [employer] (ASA) physical status classification: Class III. Anesthetic Preoperative Plan Anesthesia: General. . Anesthetic plan, risks, benefits, and alternatives discussed with the patient and/or family. Patient verbalized understanding. Adverse reactions, complications, and alternatives discujssed. Consentsigned and on chart.. Extracted from:Title:Progress/SOAP NoteAuthor:Laney Mitchell PA-C NDate:06/13/21 1. Small bowel obstruction ( K56.609: Unspecified [...] tomorrow am (06/14/21) Laney Mitchell PA-C Ext: [phone], available Sunday-Sunday 8am-4pm Trauma Surgery/Surgical Critical Care/Acute Care Surgery *For urgent issues arising after 4PM during the week or on weekends/holiday, please page the trauma/acute care surgery attending receptionist telephone operator. This patient's plan of care was discussed with Trauma/Surgery Floor attending, Dr. Sales Extracted from:Title:Progress/SOAP NoteAuthor:RiveraMelchor salcedo DODate: 06/12/21 Small bowel obstruction, inc isional hernia Seizure disorder BPH Maintain NG tube to low continuous suction. Patient with recurrent SBO and admissions over the past6 months. 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 Will tentatively plan for exploratory laparotomy tomorrow afternoon pending OR schedule Continue LR at 100 cc/hr Continue IV keppra 1500 BID as this is home conversion. Unable to give home vimpat as IV form is not on formulary. Unable to give Lamotragine in setting of SBO. Will resume both when able to toleratePO. PRN Ativan for seizures. Heparin TID for DVT prophylaxis Extracted from:Title:Admission H & PAuthor:Melchor Rivera DOte:06/11/21 Incisional hernia Small bowel obstruction Morbid the patient for NG tube decompression as well as likely exploratory laparotomy for lysis of adhesions and hernia repair in the setting of failed outpatient therapy and recurrent admissions over the past year. We will obtain a CT abdomen pelvis with IV contrast due to patient's elevated lactate at [place] which has improved upon this presentation. He [...] 5000 units subcu for DVT prophylaxis. Extracted from:Title:ED NoteAuthor:Venkat CONSTANTINO, JansenDate:06/11/21 1. Small bowel obstruction ( K56.609: Unspecified [...] Date:02/13/2022 10:30:00 AM Scheduled Provider:Yasmani CAMARA MD Location:[facility] Appointment Type:URO Office Visit Future Scheduled Tests Laboratory* Basic Metabolic Panel 06/24/21 * Basic Metabolic Panel 06/24/21 * CBC w/ Auto Diff 06/24/21 * CBC w/ Auto Diff 06/24/21 [facility]08-17-2014 Evaluation note* Diagnosis Small bowel obstruction (HCC) / Operation 10-19-2013- Primary Unspecified intestinal obstruction Small bowel obstruction (HCC) Unspecified intestinal obstruction Acute kidney injury (HCC) Acute kidney failure, unspecified History of seizure disorder Personal history of other disorders of nervous system and sense organs Seizures (HCC) Chronic Other convulsions MR (mental retardation), severe Severe intellectual disabilities documented in this encounter [employer] Phone: evaluation + Plan note Future Appointments Appointment Date:02/13/2022 10:30:00 AM Scheduled Provider:Yasmani CAMARA MD Location:[facility] Appointment Type:[facility]O [facility] Future Appointments Appointment Date:07/15/2021 09:30:00 AM Scheduled Provider: [facility] Type:Trauma Initial Follow Up (FT) Appointment Date:02/13/2022 10:30:00 AM Scheduled Provider:Yasmani CAMARA MD Location:[facility] Appointment Type:URO Office Visit Future Scheduled Tests Laboratory* Basic Metabolic Panel 06/24/21 * Basic Metabolic Panel 06/24/21 * CBC w/ Auto Diff 06/24/21 * CBC w/ Auto Diff 06/24/21 [facility] App[facility]ments Appointment Date:07/29/2021 09:45:00 AM Scheduled Provider: [facility] Type:Trauma Initial Follow Up (FT) Appointment Date:02/13/2022 10:30:00 AM Scheduled Provider:Yasmani CAMARA MD Location:[facility] Appointment Type:URO Office Visit Future Scheduled Tests Laboratory* Basic Metabolic Panel 06/24/21 * Basic Metabolic Panel 06/24/21 * CBC w/ Auto Diff 06/24/21 * CBC w/ Auto Diff 06/24/21 [facility] App[facility]ments Appointment Date:08/12/2021 10:00:00 AM Scheduled Provider: [facility] Type:Trauma Initial Follow Up (FT) Appointment Date:02/13/2022 10:30:00 AM Scheduled Provider:Yasmani CAMARA MD Location:[facility] Appointment Type:URO Office Visit Future Scheduled Tests Laboratory* Basic Metabolic Panel 06/24/21 * Basic Metabolic Panel 06/24/21 * CBC w/ Auto Diff 06/24/21 * CBC w/ Auto Diff 06/24/21 [facility] App[facility]ments Appointment Date:09/01/2021 10:00:00 AM Scheduled Provider: [facility] Type:Trauma Initial Follow Up (FT) Appointment Date:02/13/2022 10:30:00 AM Scheduled Provider:Yasmani CAMARA MD Location:[facility] Appointment Type:URO Office Visit Future Scheduled Tests Laboratory* Basic Metabolic Panel 06/24/21 * Basic Metabolic Panel 06/24/21 * CBC w/ Auto Diff 06/24/21 * CBC w/ Auto Diff 06/24/21 [facility] Appointments Appointment Date:02/13/2022 10:30:00 AM Scheduled Provider:Yasmani CAMARA MD Location:[facility] Appointment Type:URO Office Visit Future Scheduled Tests Laboratory* Basic Metabolic Panel 06/24/21 * Basic Metabolic Panel 06/24/21 * CBC w/ Auto Diff 06/24/21 * CBC w/ Auto Diff 06/24/21 [facility] Future Appointments Appointment Date:04/16/2023 02:30:00 PM Scheduled Provider:Yasmani CAMARA MD Location:[facility] Appointment Type:URO Office Visit [facility] evaluation + Plan note Future Appointments Appointment Date:07/20/2025 09:40:00 AM Scheduled Provider:ELSIE CASTANON PA-C Location:[facility] Appointment Type:URO Office Visit [facility] evaluation + Plan note Future Appointments Appointment Date:12/04/2024 01:50:00 PM Scheduled Provider:REESE Patrick APRN, [place] [facility] Location:[facility] Appointment Type:URO Office Visit Appointment Date:07/20/2025 09:40:00 AM Scheduled Provider:ELSIE CASTANON PA-C Location:[facility] Appointment Type:URO Office Visit [facility] evaluation + Plan note Future Appointments Appointment Date:07/23/2025 10:20:00 AM Scheduled Provider:REESE Patrick APRN, [place] [facility] Location:[facility] Appointment Type:URO Office Visit Diagnostic Tests Pending * PSA Screen, Total 12/18/24 [facility] evaluation note* Diagnosis Seizure (HCC)- Primary Other convulsions documented in this encounter [employer] Phone: evaluation note* Diagnosis SBO (small bowel obstruction) (HCC)- Primary Unspecified intestinal obstruction SBO (small bowel obstruction) (HCC) Unspecified intestinal obstruction Moderate malnutrition (HCC) Malnutrition of moderate degree documented in this encounter [employer] Phone: evaluation note* Diagnosis SBO (small bowel [...] of mild degree documented in this encounter [facility]* Diagnosis Small bowel obstruction (HCC)- Primary Unspecified intestinal obstruction Seizures (HCC) Chronic Other convulsions MR (mental retardation), severe Severe intellectual disabilities Epilepsy (HCC) 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 of intractable epilepsy AFTAB (obstructive sleep apnea) Obstructive sleep apnea (adult) (pediatric) Seizure-like activity (HCC) Other convulsions documented in this encounter [facility] note* Diagnosis Intractable nausea and vomiting- Primary Persistent vomiting Ileus (HCC) Paralytic ileus Partial small bowel obstruction (HCC) Unspecified intestinal obstruction Intractable nausea and vomiting Persistent vomiting Pneumatosis intestinalis Other specified disorder of intestines Sepsis, due to unspecified organism, unspecified whether acute organ dysfunction present (HCC) JOSÉ MIGUEL (acute kidney injury) (HCC) Acute kidney failure, unspecified Seizure-like activity (HCC) Other convulsions Seizure disorder (HCC) 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 of intractable epilepsy Nausea and vomiting, unspecified vomiting type Elevated international normalized ratio (INR) Dysphagia, unspecified type S/P placement of VNS (vagus nerve stimulation) device Other postprocedural status Intellectual disability Unspecified intellectual disabilities Nonintractable epilepsy without status epilepticus, unspecified epilepsy type (HCC) AFTAB (obstructive sleep apnea) Obstructive sleep apnea (adult) (pediatric) SBO (small bowel obstruction) (HCC) Unspecified intestinal obstruction MR (mental retardation), severe Severe intellectual disabilities Seizures (HCC) Chronic Other convulsions Small bowel obstruction (HCC) Unspecified intestinal obstruction JOSÉ MIGUEL (acute kidney injury) (HCC) Acute kidney failure, unspecified Epilepsy (HCC) 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 of intractable epilepsy MR (mental retardation), severe Severe intellectual disabilities Sepsis (HCC) Ileus (HCC) Paralytic ileus documented in this encounter [facility] note* Diagnosis Small bowel obstruction (HCC)- Primary Unspecified intestinal obstruction SBO (small bowel obstruction) (HCC) Unspecified intestinal obstruction documented in this encounter [facility] note* Diagnosis Small bowel obstruction due to adhesions (HCC)- Primary Intestinal or peritoneal adhesions with obstruction (postoperative) (postinfection) Malnutrition of moderate degree (HCC) Malnutrition of moderate degree Severe intellectual disability Severe intellectual disabilities Seizure (HCC) Other convulsions Urinary retention Retention of urine, unspecified Malnutrition of moderate degree (HCC) Malnutrition of moderate degree Cough, unspecified type- Primary History of small bowel obstruction Personal history of other diseases of digestive system documented [facility] this [facility]* Diagnosis Fall at home, subsequent encounter- Primary Moderate developmental delay Seizure disorder (CMS/HCC) 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 of intractable epilepsy Partial small bowel obstruction (CMS/HCC)- Primary Unspecified intestinal obstruction Moderate intellectual disability (CMS/HCC) Moderate mental retardation Cerebral palsy, unspecified type (CMS/HCC) Seizure disorder (CMS/HCC) 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 of intractable epilepsy Partial small bowel obstruction (CMS/HCC)- Primary Unspecified intestinal obstruction Seizure disorder (CMS/HCC) 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 of intractable epilepsy Seizure disorder (CMS/HCC)- Primary 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 of intractable epilepsy Chronic constipation Unspecified constipation BPH 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 Allergic conjunctivitis of right eye 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, unspecified cerebrovascular disease type, unspecified hemiplegia type, unspecified laterality (CMS/HCC) Seizure (CMS/HCC) Other convulsions documented in this encounter [facility]* Diagnosis Fall at home, subsequent encounter- Primary Moderate developmental delay Seizure disorder (CMS/HCC) 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 of intractable epilepsy Partial small bowel obstruction (CMS/HCC)- Primary Unspecified intestinal obstruction Moderate intellectual disability (CMS/HCC) Moderate mental retardation Cerebral palsy, unspecified type (CMS/HCC) Seizure disorder (CMS/HCC) 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 of intractable epilepsy Partial small bowel obstruction (CMS/HCC)- Primary Unspecified intestinal obstruction Seizure disorder (CMS/HCC) 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 of intractable epilepsy Seizure disorder (CMS/HCC)- Primary 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 of intractable epilepsy Chronic constipation Unspecified constipation BPH 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 Allergic conjunctivitis of right eye 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, unspecified cerebrovascular disease type, unspecified hemiplegia type, unspecified laterality (CMS/HCC) Seizure (CMS/HCC)- Primary Other convulsions documented in this encounter [facility]* Diagnosis Bowel obstruction (HCC)- Primary Unspecified intestinal obstruction Abdominal distention Flatulence, eructation, and gas pain MR (mental retardation), severe Severe intellectual disabilities Epilepsy (HCC) 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 of intractable epilepsy AFTAB (obstructive sleep apnea) Obstructive sleep apnea (adult) (pediatric) S/P placement of VNS (vagus nerve stimulation) device Other postprocedural status Dysphagia Dysphagia, unspecified Seizure disorder (HCC) 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 of intractable epilepsy documented in this encounter [facility]* Diagnosis Partial small bowel obstruction (CMS/HCC)- Primary Unspecified intestinal obstruction Pneumonia due to infectious organism, unspecified laterality, unspecified part of lung Screening PSA (prostate specific antigen) Special screening for malignant neoplasm of prostate Encounter for long-term current use of medication Dyslipidemia (CMS/HCC) Other and unspecified hyperlipidemia Partial small bowel obstruction (CMS/HCC)- Primary Unspecified intestinal obstruction Moderate developmental delay Cerebral palsy, unspecified type (CMS/HCC) Fall at home, subsequent encounter- Primary Moderate developmental delay Seizure disorder (CMS/HCC) 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 of intractable epilepsy Partial small bowel obstruction (CMS/HCC)- Primary Unspecified intestinal obstruction Moderate intellectual disability (CMS/HCC) Moderate mental retardation Cerebral palsy, unspecified type (CMS/HCC) Seizure disorder (CMS/HCC) 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 of intractable epilepsy Partial small bowel obstruction (CMS/HCC)- Primary Unspecified intestinal obstruction Seizure disorder (CMS/HCC) 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 of intractable epilepsy Seizure disorder (CMS/HCC)- Primary 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 of intractable epilepsy Chronic constipation Unspecified constipation BPH 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 Allergic conjunctivitis of right eye 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, unspecified cerebrovascular disease type, unspecified hemiplegia type, unspecified laterality (CMS/HCC) Small bowel obstruction (CMS/HCC)- Primary Unspecified intestinal obstruction Seizure disorder (CMS/HCC) 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 of intractable epilepsy Need for assistance with personal care Moderate intellectual disability (CMS/HCC) Moderate mental retardation Limitation due to disability documented [facility]* Diagnosis Partial small bowel obstruction (CMS/HCC)- Primary Unspecified intestinal obstruction Pneumonia due to infectious organism, unspecified laterality, unspecified part of lung Screening PSA (prostate specific antigen) Special screening for malignant neoplasm of prostate Encounter for long-term current use of medication Dyslipidemia (CMS/HCC) Other and unspecified hyperlipidemia Partial small bowel obstruction (CMS/HCC)- Primary Unspecified intestinal obstruction Moderate developmental delay Cerebral palsy, unspecified type (CMS/HCC) Fall at home, subsequent encounter- Primary Moderate developmental delay Seizure disorder (CMS/HCC) 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 of intractable epilepsy Partial small bowel obstruction (CMS/HCC)- Primary Unspecified intestinal obstruction Moderate intellectual disability (CMS/HCC) Moderate mental retardation Cerebral palsy, unspecified type (CMS/HCC) Seizure disorder (CMS/HCC) 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 of intractable epilepsy Partial small bowel obstruction (CMS/HCC)- Primary Unspecified intestinal obstruction Seizure disorder (CMS/HCC) 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 of intractable epilepsy Seizure disorder (CMS/HCC)- Primary 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 of intractable epilepsy Chronic constipation Unspecified constipation BPH 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 Allergic conjunctivitis of right eye 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, unspecified cerebrovascular disease type, unspecified hemiplegia type, unspecified laterality (CMS/HCC) Localization-related (focal) (partial) symptomatic epilepsy and epileptic syndromes with complex partial seizures, not intractable, without status epilepticus (CMS/HCC)- Primary Developmental delay Unspecified delay in development 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, unspecified cerebrovascular disease type, unspecified hemiplegia type, unspecified laterality (CMS/HCC) Cognitive deficits Unspecified persistent mental disorders due to conditions classified elsewhere Small bowel obstruction (CMS/HCC)- Primary Unspecified intestinal obstruction Seizure disorder (CMS/HCC) 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 of intractable epilepsy Need for assistance with personal care Moderate intellectual disability (CMS/HCC) Moderate mental retardation Limitation due to disability [facility] Diagnosis Partial small bowel obstruction (CMS/HCC)- Primary Unspecified intestinal obstruction Pneumonia due to infectious organism, unspecified laterality, unspecified part of lung Screening PSA (prostate specific antigen) Special screening for malignant neoplasm of prostate Encounter for long-term current use of medication Dyslipidemia (CMS/HCC) Other and unspecified hyperlipidemia Partial small bowel obstruction (CMS/HCC)- Primary Unspecified intestinal obstruction Moderate developmental delay Cerebral palsy, unspecified type (CMS/HCC) Fall at home, subsequent encounter- Primary Moderate developmental delay Seizure disorder (CMS/HCC) 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 of intractable epilepsy Partial small bowel obstruction (CMS/HCC)- Primary Unspecified intestinal obstruction Moderate intellectual disability (CMS/HCC) Moderate mental retardation Cerebral palsy, unspecified type (CMS/HCC) Seizure disorder (CMS/HCC) 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 of intractable epilepsy Partial small bowel obstruction (CMS/HCC)- Primary Unspecified intestinal obstruction Seizure disorder (CMS/HCC) 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 of intractable epilepsy Seizure disorder (CMS/HCC)- Primary 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 of intractable epilepsy Chronic constipation Unspecified constipation BPH 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 Allergic conjunctivitis of right eye 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, unspecified cerebrovascular disease type, unspecified hemiplegia type, unspecified laterality (CMS/HCC) Small bowel obstruction (CMS/HCC)- Primary Unspecified intestinal obstruction Seizure disorder (CMS/HCC) 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 of intractable epilepsy Need for assistance with personal care Moderate intellectual disability (CMS/HCC) Moderate mental retardation Limitation due to disability Seizure (CMS/HCC) Other convulsions [facility] Diagnosis Fall at home, subsequent encounter- Primary Moderate developmental delay Seizure disorder (CMS/HCC) 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 of intractable epilepsy Partial small bowel obstruction (CMS/HCC)- Primary Unspecified intestinal obstruction Moderate intellectual disability (CMS/HCC) Moderate mental retardation Cerebral palsy, unspecified type (CMS/HCC) Seizure disorder (CMS/HCC) 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 of intractable epilepsy Partial small bowel obstruction (CMS/HCC)- Primary Unspecified intestinal obstruction Seizure disorder (CMS/HCC) 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 of intractable epilepsy Seizure disorder (CMS/HCC)- Primary 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 of intractable epilepsy Chronic constipation Unspecified constipation BPH 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 Allergic conjunctivitis of right eye 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, unspecified cerebrovascular disease type, unspecified hemiplegia type, unspecified laterality (CMS/HCC) Small bowel obstruction (CMS/HCC)- Primary Unspecified intestinal obstruction Seizure disorder (CMS/HCC) 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 of intractable epilepsy Need for assistance with personal care Moderate intellectual disability (CMS/HCC) Moderate mental retardation Limitation due to disability Moderate intellectual disability (CMS/HCC)- Primary Moderate mental retardation Cerebral palsy, unspecified type (CMS/HCC) Seizure disorder (CMS/HCC) 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 of intractable epilepsy Chronic constipation Unspecified constipation BPH without obstruction/lower urinary tract symptoms Limitation due to disability Hemiplegia, unspecified affecting unspecified side (CMS/HCC) [facility] Diagnosis SBO (small bowel obstruction) (CMS-HCC)- Primary Unspecified intestinal obstruction SBO (small bowel obstruction) (CMS-HCC) Unspecified intestinal obstruction Seizure disorder (CMS-HCC) 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 of intractable epilepsy [facility] Small bowel obstruction (HCC)- Primary Unspecified intestinal obstruction Intestinal obstruction, unspecified cause, unspecified whether partial or complete (HCC) MR (mental retardation), severe Severe intellectual disabilities Seizure disorder (HCC) 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 of intractable epilepsy S/P placement of VNS (vagus nerve stimulation) device Other [facility]procedural status [facility] at home, subsequent encounter- Primary Moderate developmental delay Seizure disorder (CMS/HCC) 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 of intractable epilepsy Partial small bowel obstruction (CMS/HCC)- Primary Unspecified intestinal obstruction Moderate intellectual disability (CMS/HCC) Moderate mental retardation Cerebral palsy, unspecified type (CMS/HCC) Seizure disorder (CMS/HCC) 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 of intractable epilepsy Partial small bowel obstruction (CMS/HCC)- Primary Unspecified intestinal obstruction Seizure disorder (CMS/HCC) 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 of intractable epilepsy Seizure disorder (CMS/HCC)- Primary 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 of intractable epilepsy Chronic constipation Unspecified constipation BPH 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 Allergic conjunctivitis of right eye 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, unspecified cerebrovascular disease type, unspecified hemiplegia type, unspecified laterality (CMS/HCC) Small bowel obstruction (CMS/HCC)- Primary Unspecified intestinal obstruction Seizure disorder (CMS/HCC) 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 of intractable epilepsy Need for assistance with personal care Moderate intellectual disability (CMS/HCC) Moderate mental retardation Limitation due to disability Moderate intellectual disability (CMS/HCC)- Primary Moderate mental retardation Cerebral palsy, unspecified type (CMS/HCC) Seizure disorder (CMS/HCC) 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 of intractable epilepsy Chronic constipation Unspecified constipation BPH without obstruction/lower urinary tract symptoms Limitation due to disability Hemiplegia, unspecified affecting unspecified side (CMS/HCC) Seizure (CMS/HCC) Other convulsions [facility] Diagnosis Small bowel obstruction due to adhesions (HCC)- Primary Intestinal or peritoneal adhesions with obstruction (postoperative) (postinfection) Malnutrition of moderate degree (HCC) Malnutrition of moderate degree Severe intellectual disability Severe intellectual disabilities Seizure (HCC) Other convulsions Urinary retention Retention of urine, unspecified Malnutrition of moderate degree (HCC) Malnutrition of moderate degree Constipation, unspecified constipation type- Primary [facility] Diagnosis Small bowel obstruction (HCC)- Primary Unspecified intestinal obstruction SBO (small bowel obstruction) (HCC) Unspecified intestinal obstruction Abnormal ECG Nonspecific abnormal electrocardiogram (ECG) (EKG) Sinus tachycardia Other specified cardiac dysrhythmias Seizure disorder (HCC) 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 of intractable epilepsy S/P placement of VNS (vagus nerve stimulation) device Other postprocedural status MR (mental retardation), severe Severe intellectual disabilities [facility] Diagnosis Fall at home, subsequent encounter- Primary Moderate developmental delay Seizure disorder (CMS/HCC) 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 of intractable epilepsy Partial small bowel obstruction (CMS/HCC)- Primary Unspecified intestinal obstruction Moderate intellectual disability (CMS/HCC) Moderate mental retardation Cerebral palsy, unspecified type (CMS/HCC) Seizure disorder (CMS/HCC) 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 of intractable epilepsy Partial small bowel obstruction (CMS/HCC)- Primary Unspecified intestinal obstruction Seizure disorder (CMS/HCC) 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 of intractable epilepsy Seizure disorder (CMS/HCC)- Primary 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 of intractable epilepsy Chronic constipation Unspecified constipation BPH 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 Allergic conjunctivitis of right eye 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, unspecified cerebrovascular disease type, unspecified hemiplegia type, unspecified laterality (CMS/HCC) Small bowel obstruction (CMS/HCC)- Primary Unspecified intestinal obstruction Seizure disorder (CMS/HCC) 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 of intractable epilepsy Need for assistance with personal care Moderate intellectual disability (CMS/HCC) Moderate mental retardation Limitation due to disability Moderate intellectual disability (CMS/HCC)- Primary Moderate mental retardation Cerebral palsy, unspecified type (CMS/HCC) Seizure disorder (CMS/HCC) 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 of intractable epilepsy Chronic constipation Unspecified constipation BPH without obstruction/lower urinary tract symptoms Limitation due to disability Hemiplegia, unspecified affecting unspecified side (CMS/HCC) SBO (small bowel obstruction) (CMS/HCC)- Primary Unspecified intestinal obstruction Seizure disorder (CMS/HCC) 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 of intractable epilepsy Developmental delay Unspecified delay in development Chronic constipation Unspecified constipation Moderate intellectual disability (CMS/HCC) Moderate mental retardation documented in [facility] encounter [facility]* Diagnosis Fall at home, subsequent encounter- Primary Moderate developmental delay Seizure disorder (CMS/HCC) 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 of intractable epilepsy Partial small bowel obstruction (CMS/HCC)- Primary Unspecified intestinal obstruction Moderate intellectual disability (CMS/HCC) Moderate mental retardation Cerebral palsy, unspecified type (CMS/HCC) Seizure disorder (CMS/HCC) 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 of intractable epilepsy Partial small bowel obstruction (CMS/HCC)- Primary Unspecified intestinal obstruction Seizure disorder (CMS/HCC) 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 of intractable epilepsy Seizure disorder (CMS/HCC)- Primary 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 of intractable epilepsy Chronic constipation Unspecified constipation BPH 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 Allergic conjunctivitis of right eye 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, unspecified cerebrovascular disease type, unspecified hemiplegia type, unspecified laterality (CMS/HCC) Small bowel obstruction (CMS/HCC)- Primary Unspecified intestinal obstruction Seizure disorder (CMS/HCC) 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 of intractable epilepsy Need for assistance with personal care Moderate intellectual disability (CMS/HCC) Moderate mental retardation Limitation due to disability Moderate intellectual disability (CMS/HCC)- Primary Moderate mental retardation Cerebral palsy, unspecified type (CMS/HCC) Seizure disorder (CMS/HCC) 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 of intractable epilepsy Chronic constipation Unspecified constipation BPH without obstruction/lower urinary tract symptoms Limitation due to disability Hemiplegia, unspecified affecting unspecified side (CMS/HCC) SBO (small bowel obstruction) (CMS/HCC)- Primary Unspecified intestinal obstruction Seizure disorder (CMS/HCC) 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 of intractable epilepsy Developmental delay Unspecified delay in development Chronic constipation Unspecified constipation Moderate intellectual disability (CMS/HCC) Moderate mental retardation Localization-related (focal) (partial) symptomatic epilepsy and epileptic syndromes with complex partial seizures, not intractable, without status epilepticus- Primary Seizure (CMS/HCC) Other convulsions Weakness Other malaise and fatigue Debility Unspecified debility Developmental delay Unspecified delay in development documented in this encounter [facility]* Diagnosis Complicated UTI (urinary tract infection)- Primary Urinary tract infection, site not specified Acute cystitis without hematuria Acute cystitis Diarrhea, unspecified type Partial small bowel obstruction (HCC) Unspecified intestinal obstruction MR (mental retardation), severe Severe intellectual disabilities Epileptic seizures (HCC) 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 of intractable epilepsy Ileitis Other and unspecified noninfectious gastroenteritis and colitis [facility] Diagnosis Fall at home, subsequent encounter- Primary Moderate developmental delay Seizure disorder ([facility]) 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 of intractable epilepsy Partial small bowel obstruction ([facility])- Primary Unspecified intestinal obstruction Moderate intellectual disability ([facility]) Moderate mental retardation Cerebral palsy, unspecified type ([facility]) Seizure disorder ([facility]) 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 of intractable epilepsy Partial small bowel obstruction ([facility])- Primary Unspecified intestinal obstruction Seizure disorder ([facility]) 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 of intractable epilepsy Seizure disorder ([facility])- Primary 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 of intractable epilepsy Chronic constipation Unspecified constipation BPH 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 Allergic conjunctivitis of right eye 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, unspecified cerebrovascular disease type, unspecified hemiplegia type, unspecified laterality ([facility]) Small bowel obstruction ([facility])- Primary Unspecified intestinal obstruction Seizure disorder ([facility]) 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 of intractable epilepsy Need for assistance with personal care Moderate intellectual disability ([facility]) Moderate mental retardation Limitation due to disability Moderate intellectual disability (CMS/HCC)- Primary Moderate mental retardation Cerebral palsy, unspecified type ([facility]) Seizure disorder ([facility]) 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 of intractable epilepsy Chronic constipation Unspecified constipation BPH without obstruction/lower urinary tract symptoms Limitation due to disability Hemiplegia, unspecified affecting unspecified side ([facility]) SBO (small bowel obstruction) ([facility])- Primary Unspecified intestinal obstruction Seizure disorder ([facility]) 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 of intractable epilepsy Developmental delay Unspecified delay in development Chronic constipation Unspecified constipation Moderate intellectual disability ([facility]) Moderate mental retardation E. coli UTI (urinary tract infection)- Primary Seizure disorder ([facility]) 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 of intractable epilepsy [facility] Diagnosis SBO (small bowel obstruction) ([facility])- Primary Unspecified intestinal obstruction SBO (small bowel obstruction) ([facility]) Unspecified intestinal obstruction Ileitis Other and unspecified noninfectious gastroenteritis and colitis Complicated UTI (urinary tract infection) Urinary tract infection, site not specified Sinus tachycardia Other specified cardiac dysrhythmias Abnormal ECG Nonspecific abnormal electrocardiogram (ECG) (EKG) Small bowel obstruction ([facility]) Unspecified intestinal obstruction Pneumatosis intestinalis Other specified disorder of intestines Seizure disorder (HCC) 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 of intractable epilepsy Dysphagia, unspecified type S/P placement of VNS (vagus nerve stimulation) device Other postprocedural status Intellectual disability Unspecified intellectual disabilities AFTAB (obstructive sleep apnea) Obstructive sleep apnea (adult) (pediatric) MR (mental retardation), severe Severe intellectual disabilities S/P placement of VNS (vagus nerve stimulation) device Other postprocedural status MR (mental retardation), severe Severe intellectual disabilities Abnormal ECG Nonspecific abnormal electrocardiogram (ECG) (EKG) documented in this [facility]* Diagnosis Fall at home, subsequent encounter- Primary Moderate developmental delay Seizure disorder (HCC) 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 of intractable epilepsy Partial small bowel obstruction (HCC)- Primary Unspecified intestinal obstruction Moderate intellectual disability Moderate mental retardation Cerebral palsy, unspecified type (HCC) Seizure disorder (HCC) 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 of intractable epilepsy Partial small bowel obstruction (HCC)- Primary Unspecified intestinal obstruction Seizure disorder (HCC) 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 of intractable epilepsy Seizure disorder (HCC)- Primary 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 of intractable epilepsy Chronic constipation Unspecified constipation BPH 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 Allergic conjunctivitis of right eye 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, unspecified cerebrovascular disease type, unspecified hemiplegia type, unspecified laterality (HCC) Small bowel obstruction (HCC)- Primary Unspecified intestinal obstruction Seizure disorder (HCC) 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 of intractable epilepsy Need for assistance with personal care Moderate intellectual disability Moderate mental retardation Limitation due to disability 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 Cerebral palsy, unspecified type (HCC) Seizure disorder (HCC) 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 of intractable epilepsy Chronic constipation Unspecified constipation BPH without obstruction/lower urinary tract symptoms Limitation due to disability Hemiplegia, unspecified affecting unspecified side (HCC) SBO (small bowel obstruction) (HCC)- Primary Unspecified intestinal obstruction Seizure disorder (HCC) 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 of intractable epilepsy Partial small bowel obstruction (HCC)- Primary Unspecified intestinal obstruction documented in this encounter [facility]* Diagnosis Small bowel obstruction (CMS-HCC)- Primary Unspecified intestinal obstruction Small bowel obstruction (CMS-HCC) Unspecified intestinal obstruction Urinary retention Unspecified retention of urine Seizures (CMS-HCC) Other convulsions Class 2 obesity due to excess calories with body mass index (BMI) of 36.0 to 36.9 in adult Mental retardation Unspecified mental retardation Urinary retention Unspecified retention of urine Hypomagnesemia Disorders of magnesium metabolism [facility] Diagnosis Fall at home, subsequent encounter- Primary Moderate developmental delay Seizure disorder (HCC) 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 of intractable epilepsy Partial small bowel obstruction (HCC)- Primary Unspecified intestinal obstruction Moderate intellectual disability Moderate mental retardation Cerebral palsy, unspecified type (HCC) Seizure disorder (HCC) 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 of intractable epilepsy Partial small bowel obstruction (HCC)- Primary Unspecified intestinal obstruction Seizure disorder (HCC) 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 of intractable epilepsy Seizure disorder (HCC)- Primary 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 of intractable epilepsy Chronic constipation Unspecified constipation BPH 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 Allergic conjunctivitis of right eye 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, unspecified cerebrovascular disease type, unspecified hemiplegia type, unspecified laterality (HCC) Small bowel obstruction (HCC)- Primary Unspecified intestinal obstruction Seizure disorder (HCC) 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 of intractable epilepsy Need for assistance with personal care Moderate intellectual disability Moderate mental retardation Limitation due to disability 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 Cerebral palsy, unspecified type (HCC) Seizure disorder (HCC) 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 of intractable epilepsy Chronic constipation Unspecified constipation BPH without obstruction/lower urinary tract symptoms Limitation due to disability Hemiplegia, unspecified affecting unspecified side (HCC) SBO (small bowel obstruction) (HCC)- Primary Unspecified intestinal obstruction Seizure disorder (HCC) 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 of intractable epilepsy Partial small bowel obstruction (HCC)- Primary Unspecified intestinal obstruction Partial small bowel obstruction (HCC)- Primary Unspecified intestinal obstruction Urinary retention Unspecified retention of urine documented in this encounter [facility] HealthcareEvaluation note* Diagnosis JOSÉ MIGUEL (acute kidney injury)- Primary [facility] Diagnosis Vomiting, unspecified vomiting type, unspecified whether nausea present- Primary Vomiting, unspecified vomiting type, unspecified whether nausea present Ileus ([facility]) Paralytic ileus JOSÉ MIGUEL (acute kidney injury) Nausea and vomiting, unspecified vomiting type JOSÉ MIGUEL (acute kidney injury) Metabolic acidosis Acidosis Hypokalemia Hypopotassemia Seizures ([facility]) Other convulsions Mental retardation Unspecified mental retardation [facility] N[facility] No data available for this section [facility] Discharge instructions No data available for this section [facility] Discharge instructions* Attachments The following attachments cannot be sent through Care Everywhere. * Seizure ([place]) [facility]* Attachments The following attachments cannot be sent through Care Everywhere. * Cetirizine Oral Tablet (CETIRIZINE - ORAL) ([place]) * dextromethorphan and guaifenesin ([place]) [facility] instructionsNot on filedocumented in [facility] InstructionsNot on filedocumented in this [facility] InstructionsNot on filedocumented in this [facility] InstructionsNot on filedocumented in this [facility] InstructionsNot on filedocumented in this [facility] Progress note No data available for this section [facility] Diagnostic Procedure Only (Routine) - New RequestSpecialtyDiagnoses / ProceduresReferred By ContactReferred To ContactXR IMAGING Diagnoses Cough, unspecified type Procedures XR MODIFIED BARIUM SWALLOW W SPEECH THERAPY RADIOLOGIC EXAM SW[place] [address] [place] [address] [place] [address] Referral IDStatusReasonStart DateExpiration DateVisits RequestedVisits [id number] Request Auto-Generated Referral [facility] Summary Purpose Family History No Family History Records FoundNo Family History Records FoundNo Family History Records FoundNo Family History Records Found No data available for this section No Family History Records Found No data available for this section No data available for this section No Family History Records Found No data available for this section No data available for this section No Family History Records FoundNo Family History Records Found No data available for this section No Family History Records Found No data available for this section No Family History Records FoundNo Family History Records FoundNo Family History Records FoundNo Family History Records Found Advance Directives TypeDate RecordedPatient RepresentativeExplanationAdvance Directives and Living WillPower of AttorneyCode StatusDate ActivatedDate InactivatedCommentsFull Code 12/14/2015 1:45 PM10 2:04 PMFull Code10/17/2013 11:29 PM11/06/2013 2:52 PM TypeDate RecordedPatient RepresentativeExplanationACP-Advance DirectiveACP-Power of AttorneyTypeDate RecordedPatient RepresentativeExplanationACP-Advance Directive05/09/2022 2:31 PMLetter of GuardianshipCode StatusDate ActivatedDate InactivatedCommentsFull Code05/09/2022 3:18 AMFull Code12/14/2015 1:45 PM 12/15/2015 2:04 PMNameRelationshipHealthcare Agent RelationshipCommunication Susan [facility] HospitalLegal GuardianPrimary Decision Maker* Code StatusDate ActivatedDate InactivatedCommentsFull Code06/21/2022 5:10 PMCode StatusDate ActivatedDate InactivatedCommentsFull Code06/12/2022 3:24 PM06/15/2022 4:18 PMFull Code05/09/2022 3:18 AM05/12/2022 9:00 PMFull Code12/14/2015 1:45 PM 12/15/2015 2:04 PMFull Code10/17/2013 11:29 PM11/06/2013 2:52 PMNameRelationship Healthcare Agent RelationshipCommunicationPatricia HolsingerLegal Guardian Primary Decision Maker* Code StatusDate ActivatedDate InactivatedCommentsFull Code09/02/2022 11:14 PMCode StatusDate ActivatedDate InactivatedCommentsFull Code06/21/2022 5:10 PM06/24/2022 2:55 AMFull Code06/12/2022 3:24 PM06/15/2022 4:18 PMFull Code05/09/2022 3:18 AM 05/12/2022 9:00 PMFull Code12/14/2015 1:45 PM10 2:04 PMNameRelationship Healthcare Agent RelationshipCommunicationPatricia HolsingerLegal Guardian Primary Decision Maker* TypeDate RecordedPatient RepresentativeExplanationACP-Advance Directive05/09/2022 2:31 PMLetter of GuardianshipCode StatusDate ActivatedDate InactivatedComments Full Code04/24/2023 10:47 PMCode StatusDate ActivatedDate InactivatedCommentsFull Code02/10/2023 7:49 AM02/14/2023 3:33 PMFull Code09/02/2022 11:14 PM09/07/2022 7:13 PMFull Code06/21/2022 5:10 PM06/24/2022 2:55 AMFull Code06/12/2022 3:24 PM06/15/2022 4:18 PMNameRelationshipHealthcare Agent RelationshipCommunicationPatricia [facility] HospitalingerLegal GuardianPrimary Decision Maker* TypeDate RecordedPatient RepresentativeExplanationACP-Guardianship05/01/2023 11:27 AMACP-Advance Directive05/09/2022 2:31 PMLetter of GuardianshipCode Status Date ActivatedDate InactivatedCommentsFull Code06/11/2023 2:38 PMCode StatusDate ActivatedDate InactivatedCommentsFull Code04/30/2023 10:47 PM05/07/2023 7:23 PMFull Code04/24/2023 10:47 PM2 6:29 PMFull Code02/10/2023 7:49 AM02/14/2023 3:33 PMFull Code09/02/2022 11:14 PM09/07/2022 7:13 PMNameRelationshipHealthcare Agent RelationshipCommunicationPatricia HolsingerLegal GuardianPrimary Decision Maker* Code StatusDate ActivatedDate InactivatedCommentsFull Code06/20/2023 11:38 PMCode StatusDate ActivatedDate InactivatedCommentsFull Code06/11/2023 2:38 PM06/14/2023 5:49 PMFull Code04/30/2023 10:47 PM05/07/2023 7:23 PMFull Code04/24/2023 10:47 PM 04/29/2023 6:29 PMFull Code02/10/2023 7:49 AM02/14/2023 3:33 PMNameRelationship Healthcare Agent RelationshipCommunicationPatricia HolsingerLegal Guardian Primary Decision Maker* TypeDate RecordedPatient RepresentativeExplanationAdvance Directive(s)11/08/2013 11:41 AMTypeDate RecordedPatient RepresentativeExplanationAdvance Directive(s) 11/08/2013 11:41 AMTypeDate RecordedPatient RepresentativeExplanation ACP-Guardianship05/01/2023 11:27 AMACP-Advance Directive05/09/2022 2:31 PMLetter of GuardianshipDate ActivatedDate UgexzlzyoiySpahctlf46/1/2024 3:43 AMDate ActivatedDate InactivatedComments07/21/2023 8:36 PM07/24/2023 3:33 PMDate ActivatedDate InactivatedComments06/20/2023 11:38 PM06/22/2023 2:16 PMDate ActivatedDate InactivatedComments06/11/2023 2:38 PM06/14/2023 5:49 PMDate Activated Date InactivatedComments04/30/2023 10:47 PM05/07/2023 7:23 PMNameRelationship Healthcare Agent RelationshipCommunicationPatricia HolsingerLegal Guardian Primary Decision Maker* Date ActivatedDate AkjnuzydeisYczhsmbh08/1/2024 3:43 AM02/07/2024 7:42 PMName RelationshipHealthcare Agent RelationshipCommunicationPatricia HolsingerLegal GuardianPrimary Decision Maker* TypeDate RecordedPatient RepresentativeExplanationAdvance Ttuevzmqr49/13/2017 3:25 PMLETTER OF GUARDIANSHIP 01/01/2015Code StatusDate ActivatedDate InactivatedCommentsFull Code04/09/2023 2:15 PM2 1:43 PMTypeDate Recorded Patient RepresentativeExplanationAdvance Cprsnbxkc05/13/2017 3:25 PMLETTER OF GUARDIANSHIP 01/01/2015Code StatusDate ActivatedDate InactivatedCommentsFull Code04/09/2023 2:15 PM2 1:43 PMDate ActivatedDate InactivatedComments 04/19/2024 6:52 PMDate ActivatedDate UdizghxdqisOchdvknb26/1/2024 3:43 AM 02/07/2024 7:42 PMDate ActivatedDate InactivatedComments07/21/2023 8:36 PM 07/24/2023 3:33 PMDate ActivatedDate InactivatedComments06/20/2023 11:38 PM 06/22/2023 2:16 PMDate ActivatedDate InactivatedComments06/11/2023 2:38 PM06/14/2023 5:49 PMNameRelationshipHealthcare Agent RelationshipCommunicationPatricia HolsingerLegal GuardianPrimary Decision Maker* Date ActivatedDate InactivatedComments04/19/2024 6:52 PM2 4:49 PMName RelationshipHealthcare Agent RelationshipCommunicationPatricia HolsingerLegal GuardianPrimary Decision Maker* Date ActivatedDate InactivatedComments06/16/2024 3:48 PMDate ActivatedDate InactivatedComments04/19/2024 6:52 PM2 4:49 PMDate ActivatedDate JuxojftztmrIjeldwfi62/1/2024 3:43 AM02/07/2024 7:42 PMDate ActivatedDate InactivatedComments07/21/2023 8:36 PM07/24/2023 3:33 PMDate ActivatedDate InactivatedComments06/20/2023 11:38 PM06/22/2023 2:16 PMNameRelationshipHealthcare Agent RelationshipCommunicationPatricia HolsingerLegal GuardianPrimary Decision Maker* Date ActivatedDate InactivatedComments07/14/2024 1:40 PMDate ActivatedDate InactivatedComments06/16/2024 3:48 PM06/19/2024 7:31 PMDate ActivatedDate InactivatedComments04/19/2024 6:52 PM2 4:49 PMDate ActivatedDate KjpbssazjbsNuccmylh62/1/2024 3:43 AM02/07/2024 7:42 PMDate ActivatedDate InactivatedComments07/21/2023 8:36 PM07/24/2023 3:33 PMNameRelationshipHealthcare Agent RelationshipCommunicationPatricia [facility] HospitalanPrimary Decision Maker* Date ActivatedDate InactivatedComments08/18/2024 10:00 PMDate ActivatedDate InactivatedComments07/14/2024 1:40 PM07/16/2024 7:10 PMDate ActivatedDate InactivatedComments06/16/2024 3:48 PM06/19/2024 7:31 PMDate ActivatedDate InactivatedComments04/19/2024 6:52 04/23/2024 4:49 PMDate ActivatedDate PobksnysepnJmnxafep52/1/2024 3:43 AM02/07/2024 7:42 PMNameRelationshipHealthcare Agent RelationshipCommunicationPatricia [facility] HospitalanCritical Access Hospitalry Decision Maker* Date ActivatedDate InactivatedComments04/09/2023 2:15 04/20/2023 1:43 PMDate ActivatedDate InactivatedComments10/10/2024 4:58 AMDate ActivatedDate Inactivated Comments04/09/2023 2:15 04/20/2023 1:43 PMDate ActivatedDate InactivatedComments 08/18/2024 10:00 PM08/21/2024 1:36 PMDate ActivatedDate InactivatedComments 10/14/2024 2:57 PMDate ActivatedDate InactivatedComments10/10/2024 4:58 AM10/13/2024 6:39 PMDate ActivatedDate InactivatedComments04/09/2023 2:15 04/20/2023 1:43 PM NameRelationshipHealthcare Agent RelationshipCommunicationPatrictammi Smith Legal GuardianPrimary Decision Maker* Date ActivatedDate XqzjrzybcyhUsaepjmt93/27/2025 10:07 PM10 5:38 PMDate ActivatedDate InactivatedComments10/14/2024 2:57 PM10/19/2024 5:33 PMDate ActivatedDate InactivatedComments10/10/2024 4:58 AM10/13/2024 6:39 PMDate Activated Date InactivatedComments04/09/2023 2:15 PM2 1:43 PMDate ActivatedDate VzvyzryatbmMemviebo95/2/2025 11:23 PMDate ActivatedDate InactivatedComments 12/29/2024 10:07 PM10 5:38 PMDate ActivatedDate InactivatedComments 10/14/2024 2:57 PM10/19/2024 5:33 PMDate ActivatedDate InactivatedComments10/10/2024 4:58 AM10/13/2024 6:39 PMDate ActivatedDate InactivatedComments04/09/2023 2:15 PM 04/20/2023 1:43 PMDate ActivatedDate PinhtbudgcpUfkeklxc04/2/2025 11:23 PM 01/08/2025 8:30 PMDate ActivatedDate ZmrzbnufcakWshnydys71/27/2025 10:07 PM 01/01/2025 5:38 PMDate ActivatedDate InactivatedComments10/14/2024 2:57 PM 10/19/2024 5:33 PMDate ActivatedDate InactivatedComments10/10/2024 4:58 AM10/13/2024 6:39 PMDate ActivatedDate InactivatedComments04/09/2023 2:15 PM2 1:43 PM Hospital Course Note HNO ID: [id number] Author: Quin Saucedo Service: Hospital Medicine Author [...] Problem: Small bowel obstruction due to adhesions ([facility]) Active Problems: Urinary retention Seizure ([facility]) Severe intellectual disability Resolved Problems: * No resolved hospital pro (more content not included)... Reason for Referral SpecialtyDiagnoses / ProceduresReferred By ContactReferred To Contact Procedures Discharge Follow-Up Edilma Eastman MD [address] [place], [place] [id number] Ref[facility] DateExpiration DateVisits RequestedVisits [id number] / ProceduresReferred By ContactReferred To [facility] Diagnoses SBO (small bowel obstruction) ([facility]) Procedures Follow-up with primary care provider Edilma Eastman MD [address] [place] [address] Referral IDStatusShaileshMcgregor DateExpiration DateVisits RequestedVisits [id number] / ProceduresReferred By ContactReferred To Contact Procedures Adult diet Edilma Eastman MD [address] [place] [address] Referral IDStatusReasonMcgregor DateExpiration DateVisits RequestedVisits [id number] [id number] / ProceduresReferred By ContactReferred To [facility] Diagnoses Ileus (HCC) Partial small bowel obstruction (HCC) Intractable nausea and vomiting Pneumatosis intestinalis Sepsis, due to unspecified organism, unspecified whether acute organ dysfunction present (HCC) JOSÉ MIGUEL (acute kidney injury) (HCC) Seizure-like activity (HCC) Seizure disorder (HCC) Nausea and vomiting, unspecified vomiting type Elevated international normalized ratio (INR) Dysphagia, unspecified type S/P placement of VNS (vagus nerve stimulation) device Intellectual disability Nonintractable epilepsy without status epilepticus, unspecified epilepsy type (HCC) AFTAB (obstructive sleep apnea) SBO (small bowel obstruction) (HCC) Severe intellectual disability Seizures (HCC) Small bowel obstruction (HCC) Lyla Burciaga MD [address] [place] [address]. [address] [place] [address] Referral IDStatusReasonStart DateExpiration DateVisits RequestedVisits [id number] Specialty Services Required QuestionAnswer Reason For External Referral? Location I certify that I, or a nurse practitioner or physician ortho assistant working with me, had an in-person encounter with the patient and the reason for the home care services is documented in the clinical note on: 06/14/2023 Will the referring provider be the attending provider for home health? [place] of attending provider for home health PCP/Naderer The patient is confined to home: Due to illness or injury that necessitates supportive device aid, use of special transportation, orassistance of another person to leave home, AND there is a normal inability to leave home, AND leaving home requires considerable taxing effort Patient requires the following home health services Physical Therapy, Occupational Therapy, Fci, Bass Guitar Teacher, Home Health Aide Comments Certification and medical necessity: I certify that, based on my findings, the following services are medically necessary home health services for Amol Taylor for the following reasons: - Vital signs monitoring: Nurse to perform BP, HR, RR, Temp, and Weight with each visit and teach patient and caregivers on taking daily. Nurse to call physician if pulse less than 50 or greater than 120, respiratory rate less than 12 or greater than 25, oral temperature greater than or equal to 101 oF, systolic BP less than 90 or greater than 170, diastolic BP less than 50 or greater than 100. - Medication compliance and education for new medications changes in previous medications safety concerns - Consult Physical Therapy for Evaluate and Treat - Consult Occupational Therapy for Evaluate and Treat - Consult Bass Guitar Teacher assessment and counseling, education on community resources, and assistance with financial needs - Consult Home Health Aid for assistance with Activities of Daily Living - Teaching and management of disease process and symptom management - Disease Process Education Additional Source Comments (unrecognized sect ion and content) No Status Records FoundNo Status Records FoundNo Status Records FoundNo Status Records FoundNo Status Records FoundNo Status Records FoundNo Status Records FoundNo Status Records FoundNo Status Records FoundNo Status Records FoundNo Status Records FoundNo Status Records FoundNo Status Records Found INFORMATION SOURCE (unrecogn ized section and content) DATE CREATED AUTHOR 08/29/2017 [facility] DATE CREATED AUTHOR AUTHOR'S ORGANIZ ATION 12/08/2018 [facility] DATE CREATED AUTHOR AUTHOR'S ORGANIZ ATION 10/08/2021 [facility] DATE CREATED AUTHOR AUTHOR'S ORGANIZ ATION 02/17/2023 [facility] DATE CREATED AUTHOR AUTHOR'S ORGANIZ ATION 06/23/2023 [facility] DATE CREATED AUTHOR AUTHOR'S ORGANIZ ATION 02/04/2024 [facility] DATE CREATED AUTHOR AUTHOR'S ORGANIZ ATION 10/14/2024 [facility] DATE CREATED AUTHOR AUTHOR'S ORGANIZ ATION 10/30/2024 [facility] DATE CREATED AUTHOR AUTHOR'S ORGANIZ ATION 12/19/2024 [facility] DATE CREATED AUTHOR AUTHOR'S ORGANIZ ATION 12/23/2024 [facility] DATE CREATED AUTHOR AUTHOR'S ORGANIZ ATION 12/23/2024 [facility] DATE CREATED AUTHOR AUTHOR'S ORGANIZ ATION 01/11/2025 [facility] DATE CREATED AUTHOR AUTHOR'S ORGANIZ ATION 2025 [facility] Care Teams (unrecognized sec tion and content) Team MemberRelationshipSpecialtyStart DateEnd Date Tyra Robles DO [address] [place] [address] PCP - GeneralInternal Medicine05/17/17Team MemberRelationshipSpecialtyStart Date End Date Ilo, Tyra J, DO [address] [place] [address] [place] [address] PCP - GeneralInternal Medicine05/17/17Team MemberRelationshipSpecialtyStart Date End Date Tyra Robles, DO [address] [place] [address] [place] [address] PCP - GeneralInternal Medicine05/17/17Team MemberRelationshipSpecialtyStart Date End Date Tyra Robles, DO [address] [place] [address] [place] [address] PCP - GeneralInternal Medicine05/17/17Team MemberRelationshipSpecialtyStart Date End Date Tyra Robles, DO [address] [place] [address] [place] [address] PCP - GeneralInternal Medicine05/17/17Team MemberRelationshipSpecialtyStart Date End Date Tyra Robles, DO [address] [place] [address] [place] [address] PCP - GeneralInternal Medicine05/17/17Team MemberRelationshipSpecialtyStart Date End Date Tyra Robles, DO [address] [place] [address] [place] [address] PCP - GeneralInternal Medicine05/17/17Team MemberRelationshipSpecialtyStart Date End Date Carson Dior MD [address] [place] [address] PCP - Generalmily Medicine05/12/22Team MemberRelationshipSpecialtyStart DateEnd Date Carson Dior MD [address] [place] [address] PCP - Generalmily Medicine05/12/22Team MemberRelationshipSpecialtyStart DateEnd Date Carson Dior MD [address] [place] [address] [facility]05/12/22Team MemberRelationshipSpecialtyStart DateEnd Date Carson Dior MD [address] [place] [address] PCP - General acute hospital Medicine05/12/22Team MemberRelationshipSpecialtyStart DateEnd Date Carson Dior MD [address] [place] [address] PCP - General acute hospital Medicine05/12/22Team MemberRelationshipSpecialtyStart DateEnd Date Carson Dior MD [address] [place] [address] PCP - General acute hospital Medicine05/12/22Team MemberRelationshipSpecialtyStart DateEnd Date Stacy Martino RN Transitional Care CoordinatorGeneral Surgery04/28/14 Carson Dior [address] [place] [address] ReferringBroadlawns Medical Centerly Medicine07/02/23Team MemberRelationshipSpecialtyStart DateEnd Date Stacy Martino RN Transitional Care CoordinatorGeneral Surgery04/28/14 Carson Dior [address] [place] [address] ReferringFamily Medicine07/02/23Team MemberRelationshipSpecialtyStart DateEnd Date Carson Dior MD [address] [place] [address] PCP - Generalmily Medicine05/17/23Team MemberRelationshipSpecialtyStart DateEnd Date Carson Dior MD [address] [place] [address] [facility]05/17/23Team MemberRelationshipSpecialtyStart DateEnd Date Carson Dior MD [address] [place] [address] PCP - Generalmily Medicine05/17/23Team MemberRelationshipSpecialtyStart DateEnd Date Carson Dior MD [address] [place] [address] PCP - GeneralFamily Medicine05/12/22Team MemberRelationshipSpecialtyStart DateEnd Date Carson Dior MD [address] [place] [address] PCP - GeneralFamily Medicine05/17/23Team MemberRelationshipSpecialtyStart DateEnd Date Carson Dior MD [address] [place] [address] PCP - Generalmily Medicine05/17/23Team MemberRelationshipSpecialtyStart DateEnd Date Carson Dior MD [address] [place] [address] PCP - GeneralFamily Medicine05/12/22Team MemberRelationshipSpecialtyStart DateEnd Date Carson Dior MD [address] [place] [address] PCP - GeneralFamily Medicine05/17/23Team MemberRelationshipSpecialtyStart DateEnd Date Carson Dior MD [address] [place] [address] PCP - Generalmily Medicine05/17/23Team MemberRelationshipSpecialtyStart DateEnd Date Carson Dior MD [address] [place] [address] PCP - Generalmily Medicine05/17/23Team MemberRelationshipSpecialtyStart DateEnd Date Carson Dior MD [address] [place] [address] PCP - Generalmily Medicine05/17/23Team MemberRelationshipSpecialtyStart DateEnd Date Carson Dior MD [address] [place] [address] PCP - GeneralFamily Medicine04/07/23Team MemberRelationshipSpecialtyStart DateEnd Date Carson Dior MD [address] [place] [address] PCP - GeneralBroadlawns Medical Centerly Medicine04/07/23Team MemberRelationshipSpecialtyStart DateEnd Date Carson Dior MD [address] [place] [address] PCP - General acute hospital Medicine05/12/22Team MemberRelationshipSpecialtyStart DateEnd Date Carson Dior MD [address] [place] [address] PCP - General acute hospital Medicine05/17/23Team MemberRelationshipSpecialtyStart DateEnd Date Carson Dior MD [address] [place] [address] PCP - General acute hospital Medicine05/12/22Team MemberRelationshipSpecialtyStart DateEnd Date Stacy Martino, RN Transitional Care CoordinatorGeneral Surgery04/28/14 Carson Dior MD [address] [place] [address] [facility] Medicine07/02/23Team MemberRelationshipSpecialtyStart DateEnd Date Carson Dior MD [address] [place] [address] PCP - General acute hospital Medicine05/12/22Team MemberRelationshipSpecialtyStart DateEnd Date Carson Dior MD [address] [place] [address] PCP - GeneralFamily Medicine05/17/23Team MemberRelationshipSpecialtyStart DateEnd Date Carson Doir MD [address] [place] [address] PCP - GeneralFamily Medicine05/17/23Team MemberRelationshipSpecialtyStart DateEnd Date Carson Dior MD [address] [place] [address] PCP - GeneralFamily Medicine05/17/23Team MemberRelationshipSpecialtyStart DateEnd Date Carson Dior MD [address] [place] [address] PCP - GeneralFamily Medicine05/17/23Team MemberRelationshipSpecialtyStart DateEnd Date Carson Dior MD [address] [place] [address] PCP - GeneralFamily Medicine05/12/22Team MemberRelationshipSpecialtyStart DateEnd Date Carson Dior MD [address] [place] [address] PCP - GeneralFamily Medicine05/17/23Team MemberRelationshipSpecialtyStart DateEnd Date Carson Dior MD [address] [place] [address] PCP - GeneralFamily Medicine05/17/23Team MemberRelationshipSpecialtyStart DateEnd Date Carson Dior MD [address] [place] [address] PCP - GeneralFamily Medicine05/17/23Team MemberRelationshipSpecialtyStart DateEnd Date Carson Dior MD [address] [place] [address] PCP - GeneralFamily Medicine05/12/22Team MemberRelationshipSpecialtyStart DateEnd Date Carson Dior MD [address] [place] [address] PCP - GeneralFamily Medicine05/17/23Team MemberRelationshipSpecialtyStart DateEnd Date Carson Dior MD [address] [place] [address] PCP - GeneralFamily Medicine05/17/23Team MemberRelationshipSpecialtyStart DateEnd Date Carson Dior MD [address] [place] [address] PCP - GeneralFamily Medicine10/09/24Team MemberRelationshipSpecialtyStart DateEnd Date Carson Dior MD [address] [place] [address] PCP - GeneralFamily Medicine10/09/24Team MemberRelationshipSpecialtyStart DateEnd Date Carson Dior MD [address] [place] [address] PCP - GeneralFamily Medicine10/09/24Team MemberRelationshipSpecialtyStart DateEnd Date Carson Dior MD [address] [place] [address] PCP - Generalmily Medicine05/17/23Team MemberRelationshipSpecialtyStart DateEnd Date Carson Dior MD [address] [place] [address] PCP - GeneralFamily Medicine05/12/22Team MemberRelationshipSpecialtyStart DateEnd Date Carson Dior MD PCP - GeneralFamily Medicine05/17/23 Carson Dior MD [address] [place] [address] PCP - 04/05/24Team MemberRelationshipSpecialtyStart DateEnd Date Carson Dior MD [address] [place] [address] PCP - GeneralFamily Medicine10/09/24Team MemberRelationshipSpecialtyStart DateEnd Date Carson Dior MD [address] [place] [address] PCP - GeneralFamily Medicine10/09/24Team MemberRelationshipSpecialtyStart DateEnd Date Carson Dior MD [address] [place] [address] [facility] - [facility]24 Reason for Visit (unrecogniz ed section and content) ReasonCommentsSeizuresSpecialtyDiagnoses / ProceduresReferred By ContactReferred To Contact Diagnoses Localization-related (focal) (partial) symptomatic epilepsy and epileptic syndromes with complex partial seizures, not intractable, without status epilepticus Procedures VNS Device Interrogation w/o programming Shawnee Butler DO [address] [place] [address] Phone: tel: fax: Referral IDStatusReasonStart DateExpiration DateVisits RequestedVisits [id number] [id number]h EMS seizure lasted about 5 minutes, patient does not remember what occurredReason CommentsEmesisFrom [facility], c/o vomiting x4 denies abdominal pain SpecialtyDiagnoses / ProceduresReferred By ContactReferred To Contact Diagnoses Small bowel obstruction (HCC) History of seizure disorder Acute kidney injury (HCC) Becca Patel MD [address] [facility] [address] [place] [address] [facility] [id number] [place] [phone] Referral IDStatusHca Midwest DivisionStwales DateExpiration DateVisits RequestedVisits [id number]fgr for bowel obstruction, had one one week ago, vomited foul smelling emesis this morningSpecialtyDiagnoses / ProceduresReferred By ContactReferred To Contact Diagnoses SBO (small bowel obstruction) (HCC) Jeanette Chacon MD [address] [facility], [place] [address] [facility] [address] [place] [address] Referral IDStatusReasonStwales DateExpiration DateVisits RequestedVisits [id number] was sent by SNF for possible bowel obstruction. Pt has no complaintsSpecialtyDiagnoses / ProceduresReferred By ContactReferred To Contact Diagnoses Small bowel obstruction (HCC) SBO (small bowel obstruction) (HCC) Lyla Burciaga MD [address] [place], [place] [address] [place] [address] [facility] [address] [place] [address] Referral IDStatusReasonStart DateExpiration DateVisits RequestedVisits [id number] / ProceduresReferred By ContactReferred To Contact Diagnoses SBO (small bowel obstruction) (HCC) Small bowel obstruction (HCC) Small [place] [address] [place] [address] [facility] [id number] [place] [phone] Referral IDStatusReasonStart DateExpiration DateVisits RequestedVisits [id number]wvdl vomiting, diarrhea, staff believes he has bowel obs.SpecialtyDiagnoses / ProceduresReferred By Contact Referred To Contact Diagnoses Ileus (HCC) Partial small bowel obstruction (HCC) Intractable nausea and vomiting Lyla Burciaga MD [address] [place], [place] [address] [place] [address] [facility] [address] [place] [address] Referral IDStatusReasonStart DateExpiration DateVisits RequestedVisits [id number] / ProceduresReferred By ContactReferred To Contact Diagnoses Small bowel obstruction (HCC) SBO (small bowel obstruction) (HCC) [place] [address] [place] [address] [facility] [id number] [place] [phone] Referral IDStatusReasonStart DateExpiration DateVisits RequestedVisits [id number]zybKoccn DateCommentsDental 4ReasonCommentsDiarrheaPt from assisted living facility, staff reports pt has had diarrhea for last weekVomitingPt with emesis x3 days, denies abd pain, denies urinary complaints, pt with history of bowel obstructionsSpecialty Diagnoses / ProceduresReferred By ContactReferred To Contact Diagnoses Abdominal distention Bowel obstruction (HCC) Yana Cornejo MD [address] [place] [address] [facility] [id number] [place] [phone] Referral IDStatusReasonStart DateExpiration DateVisits RequestedVisits [id number]-yrLiuxfgwz f/up bowel obstructionReason Onset DateCommentsMed Vehylk8703/28/2024ReasonCommentsVomitingSpecialtyDiagnoses / ProceduresReferred By ContactReferred To Contact Diagnoses SBO (small bowel obstruction) ([facility]) Seizure disorder ([facility]) Nazia Chappell MD [address] [place] [address] Referral IDStatusReasonStart DateExpiration DateVisits RequestedVisits [id number]zDa to ED from [place] via EMS with c/o possible blood in emesis.Pt has history of recent bowel obstruction. SpecialtyDiagnoses / ProceduresReferred By ContactReferred To Contact Diagnoses Small bowel obstruction (HCC) Yana Cornejo MD [address] [place] [address] [facility] [address] [place] [address] Referral IDStatusReasonStart DateExpiration DateVisits RequestedVisits [id number] DateCommentsMed Gvmrfv1704/28/2024ReasonComments Follow UpAdmitted for bowel obstruction 04/19/2024-04/23/2024ReasonComments [facility] Staff stated patient had lower quadrant abd pain with distant bowel sounds. Had 3 focal seizure episodes. Staff reports all these symptoms happened with prior bowel obstructions. No seizure like activity in squad. Vomiting upon arrival. Patient denies abd pain.SpecialtyDiagnoses / ProceduresReferred By ContactReferred To Contact Diagnoses Small bowel obstruction (HCC) Yana Cornejo MD [address] [place] [address] Phone: tel: fax: [facility] [phone] [place] [phone] Referral IDStatusReasonStwales DateExpiration DateVisits RequestedVisits [id number]osogh sent from [facility] in [facility]. Staff reported patient has been having decreased bowel sounds and diarrhea for the last few days. Hx of bowel obstructions. Staff states patient has absent like seizure activity when he develops bowel obstructions which he had this morning prior to callingEMS. Per EMS tenderness to LLQ.Specialty Diagnoses / ProceduresReferred By ContactReferred To Contact Diagnoses Complicated UTI (urinary tract infection) Lyla [facility]ciaga [facility] [place] [address] Phone: tel: fax: [facility] [id number] [place] [phone] Referral IDStatusReasonStwales DateExpiration DateVisits RequestedVisits [id number]-ygPfkxacpc f/up utiReasonComments VomitingECF reports abd pain and projectile vomiting. Patient denies abd pain. Abdominal PainSpecialtyDiagnoses / ProceduresReferred By ContactReferred To Contact Diagnoses SBO (small bowel obstruction) (HCC) Lyla Burciaga MD [address] [place] [address] Phone: tel: fax: [facility] [id number] [place] [phone] [facility] DateExpiration DateVisits RequestedVisits [id number]-ttBjlfljul f/upReasonOnset DateComments Owqtigv0910/09/2024owel obstructionReasonOnset DateCommentsno page sent10/11/2024 ReasonCommentsDiarrheaLoose stools since yesterday, was discharged yesterday from [facility] with small bowel obstruction.SpecialtyDiagnoses / Procedures Referred By ContactReferred To Contact Diagnoses Small bowel obstruction ([facility]) [facility] [address] [place] [address] Phone: tel: fax: Ref[facility]Status[facility] DateExpiration DateVisits RequestedVisits [id number]-onUktanfza f/uReasonCommentsMedical ScreeningSpecialtyDiagnoses / ProceduresReferred By ContactReferred To Contact Diagnoses Vomiting, unspecified vomiting type, unspecified whether nausea present [facility] [address] [place] [address] Phone: tel: fax: [facility]Status[facility] DateExpiration DateVisits RequestedVisits [id number] Ordered Prescriptions (unrec ognized section and content) PrescriptionSigDispensedRefillsStart DateEnd Date polyethylene glycol (GLYCOLAX) 17 g packet Take 17 g by mouth daily 527 g /rescriptionSigDispensedRefillsStart DateEnd Date erythromycin (EES) 200 MG/5ML suspension Take 5 mLs by mouth 3 times daily for 10 days Give with Breakfast, Dinner, and Bedtime 150 mL / pantoprazole (PROTONIX) 40 MG tablet Take 1 tablet by mouth every morning (before breakfast) 90 tablet erythromycin (EES) 200 MG/5ML suspension Take 5 mLs by mouth 4 times daily (with meals and nightly) for 10 days 200 mL /3PrescriptionSigDispensedRefillsStart DateEnd linaclotide (LINZESS) 145 MCG capsule Take 1 capsule by mouth every morning (before breakfast) 30 capsule 4PrescriptionSigDispensedRefillsStart DateEnd potassium chloride (KLOR-CON M) 20 MEQ extended release tablet Take 1 tablet by mouth daily for 5 days 5 tablet /rescriptionSigDispensedRefillsStart DateEnd cetirizine (ZYRTEC) 10 MG tablet Take 1 tablet by mouth daily for 10 days dextromethorphan-guaiFENesin (MUCINEX DM) 30-600 MG per extended release tablet Take 1 tablet by mouth 2 times daily for 10 daysrescription SigDispensedRefillsStart DateEnd ondansetron (ZOFRAN-ODT) 4 MG disintegrating tablet Take 1 tablet by mouth 3 times daily as needed for Nausea or Vomiting 20 tablet 04/19/2024PrescriptionSigDispense QuantityRefillsLast FilledSt DateEnd metroNIDAZOLE (FLAGYL) 500 MG tablet Take 1 tablet by mouth every 8 hours for 20 doses 20 tablet / ciprofloxacin (CIPRO) 500 MG tablet Take 1 tablet by mouth in the morning and at bedtime for 13 doses 13 tablet / Scheduled Active and Recently Administ ered Medications (unrecognized section and content) Medication Order//12/2022 enoxaparin (LOVENOX) injection 40 mg 40 mg, SubCUTAneous, DAILY, First dose on Sun05/09/22 at 0900, Until Discontinued, Indication of Use: Prophylaxis-DVT/PE, Administer by deep subCUTAneous injection with pt lying down. Alternate injection sites on abdominal wall. Do not rub site after injection. Check with provider prior to any invasive procedure. * 0916 (Given - Provider: Kathy Ospina) * 0941 (Given - Provider: Cydney Coffey RN) * 0954 (Given - Provider: Gayatri Yates) lacosamide (VIMPAT) 150 mg in sodium chloride 0.9 % 65 mL IVPB (CANCELED) 150 mg, IntraVENous, at 130 mL/hr, Administer over 30 Minutes, 2 TIMES DAILY, First dose (after last modification) on Sun05/09/22 at 1430 * 0941 (New Bag - Provider: Lisa Pastrana, RN) * 1047 (Stopped - Provider: Kathy Ospina) * 2138 (New Bag - Provider: Whitney Freed RN - Comment: Medication mixed and wasted with ARA Brooke.) * 2208 (Stopped - Provider: Whitney Freed RN) * 0952 (New Bag - Provider: Cydney Coffey RN) * 1044 (Stopped - Provider: Kathy Ospina) * 2340 (New Bag - Provider: Keyanna Friend, ARA) * 0010 (Stopped - Provider: Keyanna Friend RN) * 1041 (Not Given - Provider: Yolanda Pope RN - Reason: Loss of IV access) lacosamide (VIMPAT) tablet 150 mg 150 mg, Oral, 2 TIMES DAILY, First dose on Sun05/12/22 at 1100, Until Discontinued, Swallow tabletswhole; do not crush, split, or chew. * 1140 (Given - Provider: Gayatri Yates) * 2100 (Due) levETIRAcetam (KEPPRA) 1,500 mg in sodium chloride 0.9 % 100 mL IVPB (CANCELED) 1,500 mg, IntraVENous, EVERY 12 HOURS, First dose on Sun05/09/22 at 1000, Until Discontinued * 1047 (New Bag - Provider: Kathy Ospina) * 1149 (Stopped - Provider: Kathy Ospina) * 2233 (New Bag - Provider: Whitney Freed RN) * 2248 (Stopped - Provider: Whitney Freed RN) * 1049 (New Bag - Provider: Cydney Coffey, ARA) * 1104 (Stopped - Provider: Cydney Coffey RN) * 2222 (New Bag - Provider: Keyanna Friend, ARA) * 2237 (Stopped - Provider: Keyanna Friend, ARA) * 0959 (New Bag - Provider: Gayatri Yates) * 1000 (Stopped - Provider: Yolanda Pope RN - Comment: see nurses note.) * 1041 (Not Given - Provider: Yolanda Pope RN - Reason: Loss of IV access) levETIRAcetam (KEPPRA) 100 MG/ML solution 1,500 mg 1,500 mg, Oral, 2 TIMES DAILY, First dose on Sun05/12/22 at 1100, Until Discontinued * 1139 (Given - Provider: Gayatri Yates) * 2100 (Due) pantoprazole (PROTONIX) 40 mg in sodium chloride (PF) 0.9 % 10 mL injection 40 mg, IntraVENous, DAILY, First dose on Sun05/09/22 at 1130, Reconstitute with 10 mL 0.9 % sodium chloride and administer over at least 2 minutes. * 0916 (Given - Provider: Kathy Ospina) * 0941 (Given - Provider: Cydney Coffey RN) * 0954 (Given - Provider: Gayatri Yates) polyethylene glycol (GLYCOLAX) packet 17 g 17 g, Oral, DAILY, First dose on Sun05/12/22 at 0900, Until Discontinued, Stir and dissolve one packet of powder (17 g) in any 4 to 8 ounces of beverage (cold, hot or room temperature) then drink * 0954 (Given - Provider: Gayatri Yates) senna (SENOKOT) tablet 8.6 mg 8.6 mg (1 tablet), Oral, 2 TIMES DAILY, First dose on Sun05/12/22 at 0900, Until Discontinued * 0954 (Given - Provider: Gayatri Yates) * 2100 (Due) sodium chloride flush 0.9 % injection 5-40 mL 5-40 mL, IntraVENous, EVERY 12 HOURS SCHEDULED (2 times per day), First dose on Sun05/09/22 at 0900,Until Discontinued, For Line Patency: Peripheral IV = [...] Midline or Central Line = 20 mL/lumen * 0904 (Not Given - Provider: Kathy Ospina - Reason: IV Fluid Infusing) * 2200 (Not Given - Provider: Whitney Freed RN - Reason: IV Fluid Infusing) * 0946 (Given - Provider: Cydney Coffey, RN) * 2049 (Not Given - Provider: Keyanna Friend RN - Reason: IV Fluid Infusing) * 0957 (Given - Provider: Gayatri Yates) * 2100 (Due) Medication Order// lactated ringers IV soln infusion (CANCELED) IntraVENous, at 75 mL/hr, CONTINUOUS, Starting on Sun05/09/22 at 0345 * 0434 (New Bag - Provider: Keyanna Friend, ARA) * 0904 (Rate/Dose Change - Provider: Kathy Ospina) * 1454 (New Bag - Provider: Kathy Ospina) * 0513 (New Bag - Provider: Kathy Llamas, RN) * 1717 (New Bag - Provider: Cydney Coffey, ARA) * 0738 (Stopped - Provider: Yolanda Pope RN) Medication Order/ 0.9 % sodium chloride infusion IntraVENous, at 5-250 mL/hr, PRN, if patient receiving piggyback infusions and maintenance fluids are not ordered OR KVO fluids to protect IV site / prevent frequent line interruptions/ long duration, Starting on Sun05/09/22 at 0308, For piggyback infusion, administer at same rate as piggyback for atotal of 25 mL. Enter 25 mL into [...] Vilma 05/11/22 at 1216, Until Discontinued, Other * 1216 (Given - Provider: Andreas Cross) ketorolac (TORADOL) injection 15 mg 15 [...] as the IV push. Flush volume is determinedby type of infusion therapy being given. For non-viscous solutions use: Peripheral IV = 5 mL Midline or Central Line = 10 mL/lumen For viscous solutions (i.e. blood components, parenteral nutrition, contrast media, or after obtaining blood sample) use: Peripheral IV = 10 mL Midline or Central Line = 20 mL/lumen Order Group 1: ondansetron (ZOFRAN-ODT) disintegrating tablet [...] patient unable to tolerate tablet. K Lab &am p;nbsp; Replacement Action 3.1 to 3.5 40 mEq ORAL x 1 Under 3.1 Refer to IV replacement protoc ol Recheck K level in AM. Protocol not for use in patients with CrCl less than 30 mL/min.
Or potassium bicarb-citric acid (EFFER-K) effervescent tablet 40 mEqJump to med 40 mEq, Oral, PRN, Starting on Sun05/09/22 at 0308, Until Discontinued, Per Potassium Replacement Protocol
Administer as alternative if patient unable to tolerate oral tablet. K Lab &a mp;nbsp; Replacement Action 3.1 to 3.5 &amp ;nbsp; 40 mEq ORAL x 1 Under 3.1 &nbsp ; Refer to IV replacement protocol Recheck K level in AM.& nbsp;Protocol not for use in patients with CrCl [...] Under 2.7 CALL PROVIDER and administer 10 mEqIVPB x 6 doses (60 mEq Total) Infuse at 10 mEq/hr. Repeat Potassium lab1 hour after final administration. Protocol not for use in patients with CrCl less than 30mL/min.
Medication Order06/22//// 0.9 % sodium chloride bolus 1,000 mL (12 mL/kg), IntraVENous, at 495.9 mL/hr, Administer over 121 Minutes, ONCE, On Sun06/21/22at 1200, For 1 dose, For adult patients weighing > 55 kg (120 lbs.) and less than <50 years of age initiate 0.9NS at 500 mL/ hr. All bolus orders are to be given over 10 to 15 minutes 0.9 % sodium chloride bolus 1,000 mL (12 mL/kg), IntraVENous, at 495.9 mL/hr, Administer over 121 Minutes, ONCE, On Sun06/21/22at 1530, For 1 dose, For adult patients weighing > 55 kg (120 lbs.) and less than <50 years of age initiate 0.9NS at 500 mL/ hr. All bolus orders are to be given over 10 to 15 minutes enoxaparin (LOVENOX) injection 40 mg 40 mg, SubCUTAneous, DAILY, First dose on Sun06/21/22 at 1730, Until Discontinued, Indication of Use: Prophylaxis-DVT/PE * 0916 (Given - Provider: Jeremy Izquierdo RN) * 0837 (Given - Provider: Yennifer El) * 0900 (Due) famotidine (PEPCID) 20 mg in sodium chloride (PF) 0.9 % 10 mL injection 20 mg, IntraVENous, 2 TIMES DAILY, First dose on Vilma 4/20/23 at 1230, Until Discontinued, IV Push over minimum of 2 minutes - Dilute with 10 mL NS * 1325 (Given - Provider: Jeremy Izquierdo RN) * 2136 (Given - Provider: Corin Castanon, ARA) * 0837 (Given - Provider: Yennifer El) * 2056 (Given - Provider: Daiana Mercado, RN) * 0900 (Due) * 2100 (Due) lacosamide (VIMPAT) 150 mg in sodium chloride 0.9 % 65 mL IVPB 150 mg, IntraVENous, at 130 mL/hr, Administer over 30 Minutes, 2 TIMES DAILY BEFORE MEALS, First dose on Vilma 06/22/22 at 0930 * 0937 (New Bag - Provider: Jeremy Izquierdo RN) * 1056 (Stopped - Provider: Jeremy Izquierdo RN) * 1519 (New Bag - Provider: Jeremy Izquierdo RN) * 1636 (Stopped - Provider: Jeremy Izquierdo RN) * 0722 (New Bag - Provider: Yennifer El) * 0754 (Stopped - Provider: Yennifer El) * 1539 (New Bag - Provider: Yennifer El) * 1609 (Stopped - Provider: Yennifer El) * 0700 (Due) * 1600 (Due) levETIRAcetam (KEPPRA) 1,500 mg in sodium chloride 0.9 % 100 mL IVPB (CANCELED) 1,500 mg, IntraVENous, EVERY MORNING, First dose on Vilma 06/22/22 at 0900, Until Discontinued * 0916 (New Bag - Provider: Jeremy Izquierdo RN) * 0938 (Stopped - Provider: Jeremy Izquierdo RN) * 1013 (New Bag - Provider: Yennifer El) * 1028 (Stopped - Provider: Yennifer El) levETIRAcetam (KEPPRA) 1500 mg/100 mL IVPB 1,500 mg, IntraVENous, EVERY MORNING, First dose on Sun06/24/22 at 0900, Until Discontinued * 0900 (Due) levETIRAcetam (KEPPRA) 2,000 mg in sodium chloride 0.9 % 250 mL IVPB 2,000 mg, IntraVENous, Nightly, First dose on Vilma 06/22/22 at 2100, Until Discontinued, For seizures, administer over 15 minutes. For subarachnoid hemorrhage or traumatic brain injury, administer over60 minutes. * 2147 (New Bag - Provider: Corin Castanon RN) * 2202 (Stopped - Provider: Corin Castanon RN) * 2036 (New Bag - Provider: Daiana Mercado, ARA) * 2054 (Stopped - Provider: Daiana Mercado, ARA) * 2100 (Due) sodium chloride flush 0.9 % injection 5-40 mL 5-40 mL, IntraVENous, EVERY 12 HOURS SCHEDULED (2 times per day), First dose on Sun06/21/22 at 2100, Until Discontinued, For Line Patency: Peripheral IV = 5 mL; Midline or Central Line = 10 mL/lumen.If following IV push medication, administer flush at same rate as the IV push. Flush volume is determined by type of infusion therapy being given. For non-viscous solutions use: Peripheral IV = 5 mL Midline or Central Line = 10 mL/lumen For viscous solutions (i.e. blood components, parenteral nutrition, contrast media, or after obtaining blood sample) use: Peripheral IV = 10 mL Midline or CentralLine = 20 mL/lumen * 0015 (Not Given - Provider: Alesha Galicia RN - Reason: IV Fluid Infusing) * 0920 (Not Given - Provider: Jeremy Izquierdo RN - Reason: IV Fluid Infusing) * 220 (Not Given - Provider: Corin Castanon RN - Reason: IV Fluid Infusing) * 0843 (Not Given - Provider: Yennifer El - Reason: IV Fluid Infusing) * 190 (Not Given - Provider: Daiana Mercado RN - Reason: IV Fluid Infusing) * 0900 (Due) * 2100 (Due) Medication Order06/22//// 0.9 % sodium chloride infusion IntraVENous, at 125 mL/hr, CONTINUOUS, Starting on Sun06/21/22 at 1730 * 0859 (New Bag - Provider: Carlie Sanchez RN) * 190 (New Bag - Provider: Corin Castanon, ARA) * 0338 (New Bag - Provider: Corin Castanon RN) * 1238 (New Bag - Provider: Yennifer El) Medication Order06/22//// 0.9 % sodium chloride infusion IntraVENous, at [...] Vilma 06/22/22 at 1322, Until Discontinued, Other * 1322 (Given - Provider: Andreas Cross) diazePAM (DIASTAT) rectal gel 20 mg [...] Line Care, After every IV line use Order Group 1: acetaminophen (TYLENOL) tablet 650 [...]
Administer if oral route cannot be used.
Medication Order//08/2022 bisacodyl (DULCOLAX) suppository 10 mg (CANCELED) 10 mg, Rectal, DAILY, First dose on Sun09/03/22 at 1145, Until Discontinued * 0913 (Not Given - Provider: Georgie Dillard RN - Reason: Contraindicated - Comment: multiple large loose BMs this morning) * 0853 (Given - Provider: Venkat Leslie RN) * 0949 (Not Given - Provider: Carlie Sanchez RN - Reason: Contraindicated - Comment: pt having multiple BMs a day) calcium carbonate (TUMS) chewable tablet 500 mg 500 mg (1 tablet), Oral, 2 TIMES DAILY, First dose on Sun09/02/22 at 2330, Until Discontinued * 0900 (Automatically Held - Provider: Dorota Woodson [facility]) * 2100 (Automatically Held - Provider: Dorota Woodson [facility]) * 0900 (Automatically Held - Provider: Dorota Woodson [facility]) * 1107 (Unheld by provider - Provider: Dorota Woodson [employer]) * 2030 (Given - Provider: Anais Addison RN) * 0947 (Given - Provider: Carlie Sanchez RN) * 2100 (Due) enoxaparin (LOVENOX) injection 40 mg 40 mg, SubCUTAneous, DAILY, First dose on Sun09/03/22 at 0900, Until Discontinued, Indication of Use: Prophylaxis-DVT/PE * 0858 (Given - Provider: Georgie Dillard RN) * 0853 (Given - Provider: Venkat Leslie RN) * 0930 (Given - Provider: Carlie Sanchez RN) erythromycin (EES) 200 MG/5ML suspension 200 mg 200 mg, Oral, 4 TIMES DAILY WITH MEALS & NIGHTLY, First dose (after last modification) on Sun09/05/22 at 1200, Until Discontinued, Antimicrobial Indications: Other, Other Abx Indication: gi motility, Take on an empty stomach, at least 30 minutes prior to a meal. * 1316 (Given - Provider: Georgie Dillard RN) * 1717 (Given - Provider: Georgie Dillard RN) * 2050 (Given - Provider: Connie Newsome RN) * 0855 (Given - Provider: Venkat Leslie RN) * 1137 (Given - Provider: Venkat Leslie RN) * 1648 (Given - Provider: Venkat Leslie RN) * 2054 (Given - Provider: Anais Addison, ARA) * 0739 (Given - Provider: Carlie Sanchez RN) * 1230 (Given - Provider: Carlie Sanchez RN) * 1700 (Due) * 2100 (Due) erythromycin (EES) 200 MG/5ML suspension 200 mg (COMPLETED) 200 mg, Oral, ONCE, 1 dose, On Sun09/05/22 at 1030, Antimicrobial Indications: Other, Other Abx Indication: gi motility, Take on an empty stomach, at least 30 minutes prior to a meal. * 1050 (Given - Provider: Georgie Dillard RN) finasteride (PROSCAR) tablet 5 mg 5 mg, Oral, NIGHTLY, First dose on Sun09/02/22 at 2330, Until Discontinued, Women should not handle crushed or broken finasteride tablets when they are or may potentially be , due to potential risk to the fetus. * 2100 (Automatically Held - Provider: RAISA Mejia CNP) * 1107 (Unheld by provider - Provider: RAISA Mejia CNP) * 2031 (Given - Provider: Anais Addison RN) * 2100 (Due) hydrocortisone 2.5 % cream Topical, 2 TIMES DAILY, First dose on Sun09/02/22 at 2330, Apply to affected areas. * 0900 (Automatically Held - Provider: RAISA Mejia CNP) * 2100 (Automatically Held - Provider: RAISA Mejia CNP) * 0900 (Automatically Held - Provider: RAISA Mejia CNP) * 1107 (Unheld by provider - Provider: RAISA Mejia CNP) * 2055 (Given - Provider: Anais Addison RN) * 1120 (Not Given - Provider: Carlie Sanchez RN - Reason: Patient/family refused) * 2100 (Due) lacosamide (VIMPAT) 150 mg in sodium chloride 0.9 % 65 mL IVPB (CANCELED) 150 mg, IntraVENous, at 130 mL/hr, Administer over 30 Minutes, 2 TIMES DAILY, First dose on Sun09/04/22 at 2100 * 1020 (New Bag - Provider: Georgie Dillard RN) * 1050 (Stopped - Provider: Georgie Dillard RN) * 2111 (New Bag - Provider: Connie Newsome RN) * 2144 (Stopped - Provider: Connie Newsome RN) * 0929 (New Bag - Provider: Venkat Leslie, ARA) * 1105 (Stopped - Provider: Venkat Leslie RN) lacosamide (VIMPAT) tablet 150 mg 150 mg, Oral, 2 TIMES DAILY, First dose on Sun09/02/22 at 2330, Until Discontinued, Swallow tablets whole; do not crush, split, or chew. * 0900 (Automatically Held - Provider: RAISA Mejia CNP) * 2100 (Automatically Held - Provider: RAISA Mejia CNP) * 09 (Automatically Held - Provider: RAISA Mejia CNP) * 1107 (Unheld by provider - Provider: RAISA Mejia CNP) * 2030 (Given - Provider: Anais Addison, ARA) * 0930 (Given - Provider: Carlie Sanchez, ARA) * 2100 (Due) lamoTRIgine (LAMICTAL) tablet 400 mg 400 mg, Oral, EVERY MORNING, First dose (after last reorder) on Sun09/06/22 at 1145, Until Discontinued * 1133 (Given - Provider: Venkat Leslie RN) * 0930 (Given - Provider: Carlie Sanchez, ARA) lamoTRIgine (LAMICTAL) tablet 600 mg 600 mg, Oral, Nightly, First dose on 09/02/22 at 2330, Until Discontinued * 2099 (Automatically Held - Provider: RAISA Mejia CNP) * 110 (Unheld by provider - Provider: RAISA Mejia CNP) * 2030 (Given - Provider: Anais Addison, ARA) * 2100 (Due) latanoprost (XALATAN) 0.005 % ophthalmic solution 1 drop 1 drop, Both Eyes, NIGHTLY, First dose on Sun09/02/22 at 2330, Until Discontinued * 2049 (Given - Provider: Connie Newsome RN) * 2054 (Given - Provider: Anais Addison, ARA) * 2100 (Due) levETIRAcetam (KEPPRA) 1500 mg/100 mL IVPB (CANCELED) 1,500 mg, IntraVENous, 2 times daily, First dose on 09/03/22 at 2100, Until Discontinued * 0904 (New Bag - Provider: Georgie Dillard, RN) * 0919 (Stopped - Provider: Georgie Dillard RN) * 2046 (New Bag - Provider: Connie Newsome RN) * 210 (Stopped - Provider: Connie Newsome RN) * 0858 (New Bag - Provider: Venkat Leslie RN) * 0923 (Stopped - Provider: Venkat Leslie RN) levETIRAcetam (KEPPRA) tablet 1,500 mg 1,500 mg, Oral, EVERY MORNING, First dose on 09/03/22 at 0900, Until Discontinued, Do not crush or chew. * 0900 (Automatically Held - Provider: Lyla Burciaga MD) * 0900 (Automatically Held - Provider: Lyla Burciaga MD) * 1107 (Unheld by provider - Provider: Dorota Woodson, PROGRAM DIR - [facility]) * 0930 (Given - Provider: Carlie Sanchez RN) levETIRAcetam (KEPPRA) tablet 2,000 mg 2,000 mg, Oral, EVERY EVENING, First dose on Sun09/02/22 at 2330, Until Discontinued, Do not crush or chew. * 1800 (Automatically Held - Provider: Lyla Burciaga MD) * 1107 (Unheld by provider - Provider: Dorota Woodson, [facility]) * 1732 (Given - Provider: Venkat Leslie RN) * 1800 (Due) oxybutynin (DITROPAN-XL) extended release tablet 10 mg 10 mg, Oral, DAILY, First dose (after last reorder) on Sun09/06/22 at 1145, Until Discontinued, Do not crush or break. * 1133 (Given - Provider: Venkat Leslie, ARA) * 0946 (Given - Provider: Carlie Sanchez, ARA) pantoprazole (PROTONIX) 40 mg in sodium chloride (PF) 0.9 % 10 mL injection 40 mg, IntraVENous, DAILY, First dose on 09/04/22 at 1030, Reconstitute with 10 mL 0.9 % sodium chloride and administer over at least 2 minutes. * 0859 (Given - Provider: Georgie Dillard RN) * 0853 (Given - Provider: Venkat Leslie RN) * 0949 (Given - Provider: Carlie Sanchez, ARA) primidone (MYSOLINE) tablet 250 mg 250 mg, Oral, EVERY MORNING, First dose (after last reorder) on Sun09/06/22 at 1145, Until Discontinued * 1136 (Given - Provider: Venkat Leslie RN) * 0930 (Given - Provider: Carlie Sanchez RN) primidone (MYSOLINE) tablet 375 mg 375 mg, Oral, NIGHTLY, First dose on Sun09/02/22 at 2330, Until Discontinued * 2100 (Automatically Held - Provider: Dorota Woodson APRN [facility]) * 110 (Unheld by provider - Provider: Dorota Woodson APRN [facility]) * 2030 (Given - Provider: Anais Addison RN) * 2100 (Due) senna (SENOKOT) tablet 8.6 mg 8.6 mg (1 tablet), Oral, 2 TIMES DAILY, First dose (after last modification) on Sun09/06/22 at 1145,Until Discontinued * 1132 (Given - Provider: Venkat Leslie RN) * 2031 (Given - Provider: Anais Addison RN) * 0947 (Given - Provider: Carlie Sanchez RN) * 2100 (Due) sodium chloride flush 0.9 % injection 10 mL 10 mL, IntraVENous, EVERY 12 HOURS SCHEDULED (2 times per day), First dose on Sun09/02/22 at 2330, Until Discontinued * 0906 (Not Given - Provider: Georgie Dillard RN - Reason: IV Fluid Infusing) * 2051 (Not Given - Provider: Connie Newsome RN - Reason: IV Fluid Infusing) * 1105 (Not Given - Provider: Venkat Leslie RN - Reason: IV Fluid Infusing) * 2055 (Given - Provider: Anais Addison RN) * 0740 (Given - Provider: Carlie Sanchez RN) * 2100 (Due) tamsulosin (FLOMAX) capsule 0.4 mg 0.4 mg, Oral, 2 TIMES DAILY, First dose (after last modification) on Sun09/06/22 at 1145, Until Discontinued, Do not crush or break. Give 30 minutes after a full meal to limit risk of orthostatic hypotension/falls. * 1133 (Given - Provider: Venkat Leslie, RN) * 2030 (Given - Provider: Anais Addison, RN) * 0948 (Given - Provider: Carlie Sanchez, ARA) * 2100 (Due) traZODone (DESYREL) tablet 50 mg 50 mg, Oral, NIGHTLY, First dose on 09/02/22 at 2330, Until Discontinued * 2100 (Automatically Held - Provider: RAISA Mejia CNP) * 1107 (Unheld by provider - Provider: RAISA Mejia CNP) * 2030 (Given - Provider: Anais Addison RN) * 2100 (Due) Vitamin D (CHOLECALCIFEROL) tablet 1,000 Units 1,000 Units, Oral, DAILY, First dose on 09/03/22 at 0900, Until Discontinued, Labeling may look different. 25 gyb=4264 Units. Please double check dosages. * 0900 (Automatically Held - Provider: RAISA Mejia CNP) * 0900 (Automatically Held - Provider: RAISA Mejia CNP) * 1107 (Unheld by provider - Provider: RAISA Mejia CNP) * 0947 (Given - Provider: Carlie Sanchez RN) Medication Order/ lactated ringers IV soln infusion (CANCELED) IntraVENous, at 75 mL/hr, CONTINUOUS, Starting on 09/02/22 at 2330 * 0233 (New Bag - Provider: Rachel Eli, ARA) * 1502 (New Bag - Provider: Georgie Dillard, RN) * 0419 (New Bag - Provider: Connie Newsome, RN) Medication Order// 0.9 % sodium chloride infusion IntraVENous, at 5-250 mL/hr, PRN, if patient receiving piggyback infusions and maintenance fluids are not ordered OR KVO fluids to protect IV site / prevent frequent line interruptions/ long duration, Starting on 09/02/22 at 2314, For piggyback infusion, administer at same rate as piggyback for atotal of 25 mL. Enter 25 mL into [...] Administer if oral route cannot be used. * 1400 (Unheld by provider - Provider: RAISA Mejia CNP) acetaminophen (TYLENOL) tablet 650 mg(Linked Group 1) 650 mg, Oral, EVERY 6 HOURS PRN, Starting on 09/02/22 at 2314, Until Discontinued, Pain Mild (1-3), Fever, For temp greater than 100.4 F (38 C), Maximum dose of acetaminophen is 4000 mg from all sources in 24 hours. * 1400 (Unheld by provider - Provider: Dorota Woodson, RAISA - [facility]) diazePAM (DIASTAT) rectal gel 20 mg 20 mg, Rectal, PRN, Starting on 09/02/22 at 2314, Until Discontinued, seizures, as indicated hydrOXYzine HCl (ATARAX) tablet 25 mg 25 mg, Oral, EVERY 12 HOURS PRN, Starting on 09/02/22 at 2314, Until Discontinued, Itching * 1400 (Unheld by provider - Provider: Dorota Woodson, RAISA - [facility]) LORazepam (ATIVAN) tablet 0.5 mg 0.5 mg, Oral, EVERY 8 HOURS PRN, Starting on 09/02/22 at 2314, Until Discontinued, Agitation, Seizures, Anxiety * 1400 (Unheld by provider - Provider: Dorota Woodson, RAISA - [facility]) magnesium sulfate 2000 mg in 50 mL IVPB premix 2,000 mg, IntraVENous, at 25 mL/hr, Administer over 2 Hours, PRN, Other, Magnesium Replacement, Starting on 09/02/22 at 2314, Mag Lab Replacement Action 1.4-1.6 mg/dL 2,000 mg Total Dose Given as 1,000 mg IVPB x 2 doses or 2,000 mg IVPB x 1 dose 1.0-1.3 mg/dL 4,000 mg Total Dose Given as 1,000 mgIVPB x 4 doses or 2,000 mg IVPB [...] on 09/02/22 at 2314, Until Discontinued, Dizziness * 1400 (Unheld by provider - Provider: RAISA Mejia CNP) melatonin tablet 3 mg 3 mg, Oral, NIGHTLY PRN, Starting on 09/02/22 at 2314, Until Discontinued, insomnia * 1400 (Unheld by provider - Provider: RAISA Mejia CNP) ondansetron (ZOFRAN) injection 4 mg(Linked Group 2) 4 mg, IntraVENous, EVERY 6 HOURS PRN, Starting on 09/02/22 at 2314, Until Discontinued, Nausea, Vomiting, Administer if oral route cannot be used. * 1400 (Unheld by provider - Provider: RAISA Mejia CNP) ondansetron (ZOFRAN-ODT) disintegrating tablet 4 mg(Linked Group 2) 4 mg, Oral, EVERY 8 HOURS PRN, Starting on 09/02/22 at 2314, Until Discontinued, Nausea, Vomiting * 1400 (Unheld by provider - Provider: RAISA Mejia CNP) polyethylene glycol (GLYCOLAX) packet 17 g 17 g, Oral, DAILY PRN, Starting on 09/02/22 at 2314, Until Discontinued, Constipation, First linetherapy for constipation * 1400 (Unheld by provider - Provider: RAISA Mejia CNP) sodium chloride flush 0.9 % injection 10 mL 10 mL, IntraVENous, PRN, Starting on 09/02/22 at 2314, Until Discontinued, Line Care, After everyIV line use * 0949 (Given - Provider: Carlie Sanchez RN) Order Group 1: acetaminophen (TYLENOL) tablet 650 [...]
Administer if oral route cannot be used.
Medication Order04/27/// calcium carbonate (TUMS) chewable tablet 500 mg 500 mg (1 tablet), Oral, 2 TIMES DAILY, First dose on Sun04/28/23 at 1230, Until Discontinued * 1328 (Given - Provider: Ray Johnson RN) * 2145 (Given - Provider: Sandrine Santana RN) * 1033 (Given - Provider: Ray Johnson RN) * 2100 (Due) enoxaparin (LOVENOX) injection 40 mg 40 mg, SubCUTAneous, DAILY, First dose on Sun04/25/23 at 0900, Until Discontinued, Indication of Use: Prophylaxis-DVT/PE, Administer by deep subCUTAneous injection with pt lying down. Alternate injection sites on abdominal wall. Do not rub site after injection. Check with provider prior to any invasive procedure. * 0803 (Given - Provider: Sharifa Bush RN) * 0910 (Given - Provider: Ray Johnson RN) * 1019 (Given - Provider: Ray Johnson RN) finasteride (PROSCAR) tablet 5 mg 5 mg, Oral, NIGHTLY, First dose on 04/28/23 at 2100, Until Discontinued, Women should not handlecrushed or broken finasteride tablets when they are or may potentially be , due topotential risk to the fetus. * 2142 (Given - Provider: Sandrine Santana RN) * 2099 (Due) lacosamide (VIMPAT) 150 mg in sodium chloride 0.9 % 65 mL IVPB (CANCELED) 150 mg, IntraVENous, at 130 mL/hr, Administer over 30 Minutes, 2 TIMES DAILY, First dose (after last modification) on Vilma 04/26/23 at 1600 * 0827 (New Bag - Provider: Sharifa Bush RN) * 0857 (Stopped - Provider: Sharifa Bush RN) * 2099 (New Bag - Provider: Sandrine Santana RN) * 213 (Stopped - Provider: Sandrine Santana RN) * 0923 (New Bag - Provider: Ray Johnson RN) * 0953 (Stopped - Provider: Ray Johnson RN) lacosamide (VIMPAT) tablet 150 mg 150 mg, Oral, 2 TIMES DAILY, First dose on 04/28/23 at 2100, Until Discontinued * 214 (Given - Provider: Sandrine Santana RN) * 1018 (Given - Provider: Ray Johnson RN) * 2100 (Due) lamoTRIgine (LAMICTAL) tablet 400 mg 400 mg, Oral, EVERY MORNING, First dose on 04/28/23 at 1230, Until Discontinued * 1328 (Given - Provider: Ray Johnson RN) * 1018 (Given - Provider: Ray Johnson RN) lamoTRIgine (LAMICTAL) tablet 600 mg 600 mg, Oral, Nightly, First dose on 04/28/23 at 2100, Until Discontinued * 214 (Given - Provider: Sandrine Santana RN) * 2100 (Due) levETIRAcetam (KEPPRA) injection 1,500 mg 1,500 mg, IntraVENous, DAILY, First dose on Sun04/25/23 at 0900, Until Discontinued, IV push * 0803 (Given - Provider: Sharifa Bush RN) * 0910 (Given - Provider: Ray Johnson RN) * 1020 (Given - Provider: Ray Johnson RN) levETIRAcetam (KEPPRA) injection 2,000 mg 2,000 mg, IntraVENous, Nightly, First dose on Sun04/25/23 at 2100, Until Discontinued, IV push * 2052 (Given - Provider: Sandrine Santana RN) * 2140 (Given - Provider: Sandrine Santana RN) * 2099 (Due) linaclotide (LINZESS) capsule 145 mcg 145 mcg, Oral, DAILY BEFORE BREAKFAST, First dose on Sun04/29/23 at 0700, Until Discontinued, Administer at least 30 minutes before breakfast on an empty stomach. Do not break or chew. Hold for loosestool * 0540 (Given - Provider: Sandrine Santana RN) magnesium oxide (MAG-OX) tablet 400 mg 400 mg, Oral, DAILY, First dose on 04/28/23 at 1230, Until Discontinued * 1328 (Given - Provider: Ray Johnson RN) * 1019 (Given - Provider: Ray Johnson RN) meclizine (ANTIVERT) tablet 25 mg 25 mg, Oral, DAILY, First dose on Sun04/28/23 at 1230, Until Discontinued * 1329 (Given - Provider: Ray Johnson RN) * 1019 (Given - Provider: Ray Johnson RN) oxyBUTYnin (DITROPAN-XL) extended release tablet 10 mg 10 mg, Oral, DAILY, First dose on 04/28/23 at 1230, Until Discontinued, Do not crush or break. * 1329 (Given - Provider: Ray Johnson RN) * 1018 (Given - Provider: Ray Johnson RN) pantoprazole (PROTONIX) tablet 40 mg 40 mg, Oral, DAILY BEFORE BREAKFAST, First dose on 04/29/23 at 0700, Until Discontinued, Do not crush or break. * 0540 (Given - Provider: Sandrine Santana RN) polyethylene glycol (GLYCOLAX) packet 17 g 17 g, Oral, DAILY, First dose on Sun04/28/23 at 1230, Until Discontinued, Stir and dissolve one packet of powder (17 g) in any 4 to 8 ounces of beverage (cold, hot or room temperature) then drink * 1328 (Given - Provider: Ray Johnson RN) * 1019 (Given - Provider: Ray Johnson RN) primidone (MYSOLINE) tablet 250 mg 250 mg, Oral, EVERY MORNING, First dose on Sun04/28/23 at 1230, Until Discontinued * 1328 (Given - Provider: Ray Johnson RN) * 1019 (Given - Provider: Ray Johnson RN) primidone (MYSOLINE) tablet 375 mg 375 mg, Oral, NIGHTLY, First dose on Sun04/28/23 at 2100, Until Discontinued * 2141 (Given - Provider: Sandrine Santana RN) * 2099 (Due) sodium chloride flush 0.9 % injection 5-40 mL 5-40 mL, IntraVENous, EVERY 12 HOURS SCHEDULED (2 times per day), First dose on Sun04/24/23 at 2315, Until Discontinued, For Line Patency: Peripheral IV = 5 mL; Midline or Central Line = 10 mL/lumen.If following IV push medication, administer flush at same rate as the IV push. Flush volume is determined by type of infusion therapy being given. For non-viscous solutions use: Peripheral IV = 5 mL Midline or Central Line = 10 mL/lumen For viscous solutions (i.e. blood components, parenteral nutrition, contrast media, or after obtaining blood sample) use: Peripheral IV = 10 mL Midline or CentralLine = 20 mL/lumen * 0824 (Given - Provider: Sharifa Bush RN) * 2052 (Given - Provider: Sandrine Santana RN) * 09 (Given - Provider: Ray Johnson RN) * 214 (Given - Provider: Sandrine Santana RN) * 102 (Given - Provider: Ray Johnson RN) * 2099 (Due) tamsulosin (FLOMAX) capsule 0.4 mg 0.4 mg, Oral, 2 TIMES DAILY, First dose on Sun04/28/23 at 1230, Until Discontinued, Do not crush orbreak. Give 30 minutes after a full meal to limit risk of orthostatic hypotension/falls. * 1328 (Given - Provider: Ray Johnson RN) * 2143 (Given - Provider: Sandrine Santana RN) * 1032 (Given - Provider: Ray Johnson RN) * 2100 (Due) Medication Order/ 0.9 % sodium chloride infusion () IntraVENous, at 50 mL/hr, CONTINUOUS, Starting on Sun04/24/23 at 2315, For 48 hours * 0155 (Rate/Dose Change - Provider: Sharifa Bush RN) * 0156 (Paused - Provider: Sharifa Bush RN) * 0156 (Rate/Dose Change - Provider: Sharifa Bush RN) * 0237 (Stopped - Provider: Sharifa Bush RN) Medication Order04/27// 0.9 % sodium chloride infusion IntraVENous, at [...] or less into rate field of order. * 0825 (New Bag - Provider: Sharifa Bush [...] more than 5 minutes. Notify provider if administeredfor seizure. LORazepam (ATIVAN) tablet 0.5 mg 0.5 [...] Administer if oral route cannot be used. * 0230 (Given - Provider: Sandrine Santana RN) ondansetron (ZOFRAN-ODT) disintegrating tablet [...] use in patients with CrCl less than 30mL/min. Do not crush, chew, or suck on tablet. Tablet may also be broken in half and each half swallowed separately. potassium chloride 10 mEq/100 mL IVPB (Peripheral Line)(Linked Group 3) 10 mEq, IntraVENous, PRN, Starting on Sun04/24/23 at 2247, Until Discontinued, at 100 mL/hr, Potassium Replacement, K Lab Replacement Action 2.7-3.0 10 mEq IVPB x 6 doses (60 mEq Total) < 2.7 CALLPHYSICIAN and 10 mEq IVPB x 6 doses (60 mEq Total) Infuse at 10 mEq/hr Repeat Potassium lab 1 hour after final administration. Not for use in patients with CrCl less than 30 mL/min. prochlorperazine (COMPAZINE) injection 10 mg 10 mg, IntraVENous, EVERY 6 HOURS PRN, Starting on Sun04/24/23 at 2247, Until Discontinued, Nausea,If administering IV push, administer at a maximum rate of 5 mg/minute. If zofran doesn't help sodium chloride flush 0.9 % injection 10 mL 10 mL, IntraVENous, PRN, Starting on Sun04/24/23 at 7, Until Discontinued, Line Care, After every IV line use Order Group 1: acetaminophen (TYLENOL) tablet 650 [...] patient unable to tolerate tablet. K Lab &a mp;nbsp; Replacement Action&amp ;nbsp;3.1 to 3.5 40 mEq ORAL x 1 Under 3.1 Refer to IV replacement romelia col Recheck K level in AM. Protocol not [...] unable to tolerate oral tablet. K Lab & amp;nbsp; Replacement Action 3.1 to 3.5 &am p;nbsp; 40 mEq ORAL x 1 Under 3.1 &nbs p; Refer to IV replacement protocol Recheck K [...] patients with CrCl less than 30 mL/min.
Medication Order bisacodyl (DULCOLAX) suppository 10 mg (COMPLETED) 10 mg, Rectal, ONCE, 1 dose, On Sun06/13/23 at 1100 * 1311 (Given - Provider: Lucrecia Cabrera, ARA) calcium carbonate (TUMS) chewable tablet 500 mg 500 mg (1 tablet), Oral, 2 TIMES DAILY, First dose on Sun06/11/23 at 2315, Until Discontinued * 0636 (Held by provider - Provider: RAISA Mejia CNP - Reason: Pt NPO) * 0900 (Automatically Held - Provider: RAISA Mejia CNP) * 2100 (Automatically Held - Provider: RAISA Mejia CNP) * 0900 (Automatically Held - Provider: RAISA Mejia CNP) * 2100 (Automatically Held - Provider: RAISA Mejia CNP) * 0644 (Unheld by provider - Provider: RAISA Mejia CNP) * 0836 (Given - Provider: Marcella Tsang RN) * 2100 (Due) cefTRIAXone (ROCEPHIN) 2,000 mg in sodium chloride 0.9 % 50 mL IVPB ([id number]) (CANCELED) 2,000 mg, IntraVENous, EVERY 24 HOURS, 7 doses, First dose (after last reorder) on Sun06/12/23 at 1200, Last dose on Sun06/18/23 at 1200, Antimicrobial Indications: Sepsis of Unknown Etiology, Sepsis duration of therapy: 7 days * 1202 (New Bag - Provider: Marcella Desai, ARA) * 1256 (Stopped - Provider: Marcella Desai RN) * 1319 (New Bag - Provider: Lucrecia Cabrera, ARA) * 1400 (Stopped - Provider: Lucrecia Cabrera, ARA) enoxaparin (LOVENOX) injection 40 mg 40 mg, SubCUTAneous, DAILY, First dose on Sun06/11/23 at 1500, Until Discontinued, Indication of Use: Prophylaxis-DVT/PE * 1004 (Given - Provider: Marcella Desai RN) * 0930 (Given - Provider: Lucrecia Cabrera, RN) * 0837 (Given - Provider: Marcella Tsang RN) finasteride (PROSCAR) tablet 5 mg 5 mg, Oral, NIGHTLY, First dose on Sun06/11/23 at 2315, Until Discontinued, Women should not handle crushed or broken finasteride tablets when they are or may potentially be , due to potential risk to the fetus. * 0636 (Held by provider - Provider: RAISA Mejia CNP - Reason: Pt NPO) * 2100 (Automatically Held - Provider: RAISA Mejia CNP) * 2100 (Automatically Held - Provider: RAISA Mejia CNP) * 0644 (Unheld by provider - Provider: RAISA Mejia CNP) * 2100 (Due) lacosamide (VIMPAT) injection 150 mg (CANCELED) 150 mg, IntraVENous, 2 TIMES DAILY, First dose on Sun06/12/23 at 0900, Until Discontinued, Doses up to 400 mg may be administered undiluted at less than or equal to 80 mg/minute (eg, 400 mg over 5 minutes) * 0952 (Given - Provider: Marcella Desai RN) * 2152 (Given - Provider: Keyanna Friend, ARA) * 1017 (Given - Provider: Lucrecia Cabrera, ARA) * 2048 (Given - Provider: Keyanna Friend, ARA) lacosamide (VIMPAT) tablet 150 mg 150 mg, Oral, 2 TIMES DAILY, First dose on Sun06/11/23 at 2315, Until Discontinued * 0636 (Held by provider - Provider: RAISA Mejia CNP - Reason: Pt NPO) * 0900 (Automatically Held - Provider: RAISA Mejia CNP) * 2100 (Automatically Held - Provider: RAISA Mejia CNP) * 0900 (Automatically Held - Provider: Dorota Woodson APRN [facility]) * 2100 (Automatically Held - Provider: Dorota Woodson APRN [facility]) * 0644 (Unheld by provider - Provider: Dorota Woodson APRN [facility]) * 0836 (Given - Provider: Marcella Tsang RN) * 2100 (Due) lamoTRIgine (LAMICTAL) tablet 400 mg 400 mg, Oral, EVERY MORNING, First dose on Sun06/12/23 at 0900, Until Discontinued * 0636 (Held by provider - Provider: Dorota Woodson APRN [facility] - Reason: Pt NPO) * 0900 (Automatically Held - Provider: Dorota Woodson APRN [facility]) * 0900 (Automatically Held - Provider: Dorota Woodson APRN [facility]) * 0644 (Unheld by provider - Provider: Dorota Woodson APRN PATTERN PAINTER) * 0837 (Given - Provider: Marcella Tsang RN) lamoTRIgine (LAMICTAL) tablet 600 mg 600 mg, Oral, Nightly, First dose on Sun06/11/23 at 2315, Until Discontinued * 0636 (Held by provider - Provider: RAISA Mejia CNP - Reason: Pt NPO) * 2100 (Automatically Held - Provider: Dorota Woodson APRN [facility]) * 2100 (Automatically Held - Provider: Dorota Woodson APRN [facility]) * 0644 (Unheld by provider - Provider: Dorota Woodson APRN [facility]) * 2100 (Due) latanoprost (XALATAN) 0.005 % ophthalmic solution 1 drop 1 drop, Both Eyes, NIGHTLY, First dose on Sun06/11/23 at 2315, Until Discontinued * 2022 (Given - Provider: Keyanna Friend, ARA) * 2048 (Given - Provider: Keyanna Friend RN) * 2100 (Due) levETIRAcetam (KEPPRA) 1500 mg/100 mL IVPB (CANCELED) 1,500 mg, IntraVENous, 2 times daily, First dose on Sun06/12/23 at 0900, Until Discontinued * 1004 (New Bag - Provider: Marcella Desai, RN) * 1059 (Stopped - Provider: Marcella Desai RN) * 2125 (New Bag - Provider: Keyanna Friend, ARA) * 2149 (Stopped - Provider: Keyanna Friend, ARA) * 1017 (New Bag - Provider: Lucrecia Cabrera, RN) * 1039 (Stopped - Provider: Lucrecia Cabrera, RN) * 2056 (New Bag - Provider: Keyanna Friend, ARA) * 2114 (Stopped - Provider: Keyanna Friend, ARA) levETIRAcetam (KEPPRA) tablet 1,500 mg 1,500 mg, Oral, DAILY, First dose on Sun06/12/23 at 0900, Until Discontinued, Do not crush or chew. * 0636 (Held by provider - Provider: RAISA Mejia CNP - Reason: Pt NPO) * 0900 (Automatically Held - Provider: RAISA Mejia CNP) * 0900 (Automatically Held - Provider: RAISA Mejia CNP) * 0644 (Unheld by provider - Provider: RAISA Mejia CNP) * 0836 (Given - Provider: Marcella Tsang RN) levETIRAcetam (KEPPRA) tablet 2,000 mg 2,000 mg, Oral, NIGHTLY, First dose on Sun06/11/23 at 2315, Until Discontinued, Do not crush or chew. * 0636 (Held by provider - Provider: RAISA Mejia CNP - Reason: Pt NPO) * 2100 (Automatically Held - Provider: RAISA Mejia CNP) * 2100 (Automatically Held - Provider: RAISA Meija CNP) * 0644 (Unheld by provider - Provider: RAISA Mejia CNP) * 2100 (Due) linaclotide (LINZESS) capsule 145 mcg (Patient Supplied) 145 mcg, Oral, DAILY BEFORE BREAKFAST, First dose on Sun06/12/23 at 0700, Until Discontinued, Administer at least 30 minutes before breakfast on an empty stomach. Do not break or chew. We do not have this medication in stock, and there is no direct substitute, or substitute was declined. The medication is marked patient supplied, however if the patient cannot provide their own medication then contact the prescriber for an alternative. * 0636 (Held by provider - Provider: RAISA Mejia CNP - Reason: Pt NPO) * 0700 (Automatically Held - Provider: RAISA Mejia CNP) * 0700 (Automatically Held - Provider: RAISA Mejia CNP) * 0644 (Unheld by provider - Provider: RAISA Mejia CNP) * 0700 (Not Given - Provider: Marcella Tsang RN - Reason: Medication not available) magnesium oxide (MAG-OX) tablet 400 mg 400 mg, Oral, DAILY, First dose on Sun06/12/23 at 0900, Until Discontinued * 0636 (Held by provider - Provider: RAISA Mejia CNP - Reason: Pt NPO) * 0900 (Automatically Held - Provider: RAISA Mejia CNP) * 0900 (Automatically Held - Provider: RAISA Mejia CNP) * 0644 (Unheld by provider - Provider: RAISA Mejia CNP) * 0836 (Given - Provider: Marcella Tsang RN) meclizine (ANTIVERT) tablet 25 mg 25 mg, Oral, DAILY, First dose on Sun06/12/23 at 0900, Until Discontinued * 0636 (Held by provider - Provider: RAISA Mejia CNP - Reason: Pt NPO) * 0900 (Automatically Held - Provider: RAISA Mejia CNP) * 0900 (Automatically Held - Provider: RAISA Mejia CNP) * 0644 (Unheld by provider - Provider: RAISA Mejia CNP) * 0836 (Given - Provider: Marcella Tsang RN) metroNIDAZOLE (FLAGYL) 500 mg in 0.9% NaCl 100 mL IVPB premix (CANCELED) 500 mg, IntraVENous, EVERY 8 HOURS, 21 doses, First dose (after last reorder) on Sun06/11/23 at 2130, Last dose on Sun06/18/23 at 1330, Antimicrobial Indications: Intra-Abdominal Infection * 0515 (New Bag - Provider: Andreas Cardenas, RN) * 0619 (Stopped - Provider: Marcella Desai, RN) * 1410 (New Bag - Provider: Marcella Desai, RN) * 1542 (Stopped - Provider: Marcella Desai, RN) * 202 (New Bag - Provider: Keyanna Friend, ARA) * 212 (Stopped - Provider: Keyanna Friend RN) * 0511 (New Bag - Provider: Keyanna Friend RN) * 0642 (Stopped - Provider: Lucrecia Cabrera, RN) * 1427 (New Bag - Provider: Lucrecia Cabrera, RN) * 1531 (Stopped - Provider: Lucrecia Cabrera, RN) * 211 (New Bag - Provider: Keyanna Friend, ARA) * 2220 (Stopped - Provider: Keyanna Friend, ARA) * 0529 (New Bag - Provider: Keyanna Friend, ARA) * 0630 (Stopped - Provider: Marcella Tsang RN) oxyBUTYnin (DITROPAN-XL) extended release tablet 10 mg 10 mg, Oral, DAILY, First dose on Sun06/12/23 at 0900, Until Discontinued, Do not crush or break. * 0636 (Held by provider - Provider: RAISA Mejia CNP - Reason: Pt NPO) * 0900 (Automatically Held - Provider: RAISA Mejia CNP) * 0900 (Automatically Held - Provider: RAISA Mejia CNP) * 0644 (Unheld by provider - Provider: RAISA Mejia CNP) * 0836 (Given - Provider: Marcella Tsang, ARA) pantoprazole (PROTONIX) 40 mg in sodium chloride (PF) 0.9 % 10 mL injection (CANCELED) 40 mg, IntraVENous, DAILY, First dose on Sun06/12/23 at 0900, Reconstitute with 10 mL 0.9 % sodium chloride and administer over at least 2 minutes. * 0946 (Given - Provider: Marcella Desai RN) * 0930 (Given - Provider: Lucrecia Cabrera RN) pantoprazole (PROTONIX) tablet 40 mg 40 mg, Oral, DAILY BEFORE BREAKFAST, First dose on Sun06/12/23 at 0700, Until Discontinued, Do not crush or break. * 0636 (Held by provider - Provider: RAISA Mejia CNP - Reason: Pt NPO) * 0700 (Automatically Held - Provider: RAISA Mejia CNP) * 0700 (Automatically Held - Provider: RAISA Mejia CNP) * 0644 (Unheld by provider - Provider: RAISA Mejia CNP) * 0836 (Given - Provider: Marcella Tsang RN) potassium chloride (KLOR-CON M) extended release tablet 20 mEq (COMPLETED) 20 mEq, Oral, ONCE, 1 dose, On Sun06/14/23 at 1200, Do not crush, chew, or suck on tablet. Tablet may also be broken in half and each half swallowed separately. * 1221 (Given - Provider: Marcella Tsang RN) potassium chloride (KLOR-CON M) extended release tablet 40 mEq (COMPLETED) 40 mEq, Oral, ONCE, 1 dose, On Sun06/14/23 at 0930, Do not crush, chew, or suck on tablet. Tablet may also be broken in half and each half swallowed separately. * 1012 (Given - Provider: Marcella Tsang RN) potassium chloride (KLOR-CON M) extended release tablet 40 mEq (COMPLETED) 40 mEq, Oral, ONCE, 1 dose, On Sun06/14/23 at 1500, Do not crush, chew, or suck on tablet. Tablet may also be broken in half and each half swallowed separately. * 1450 (Given - Provider: Marcella Tsang RN) primidone (MYSOLINE) tablet 250 mg 250 mg, Oral, EVERY MORNING, First dose on Sun06/12/23 at 0900, Until Discontinued * 0636 (Held by provider - Provider: RAISA Mejia CNP - Reason: Pt NPO) * 0900 (Automatically Held - Provider: RAISA Mejia CNP) * 0900 (Automatically Held - Provider: RAISA Mejia CNP) * 0644 (Unheld by provider - Provider: RAISA Mejia CNP) * 0836 (Given - Provider: Marcella Tsang RN) primidone (MYSOLINE) tablet 375 mg 375 mg, Oral, NIGHTLY, First dose on Sun06/11/23 at 2315, Until Discontinued * 0636 (Held by provider - Provider: RAISA Mejia CNP - Reason: Pt NPO) * 2100 (Automatically Held - Provider: RAISA Mejia CNP) * 2100 (Automatically Held - Provider: RAISA Mejia CNP) * 0644 (Unheld by provider - Provider: RAISA Mejia CNP) * 2100 (Due) sodium chloride 0.9 % bolus 500 mL (COMPLETED) 500 mL (6.68 mL/kg), IntraVENous, at 967.7 mL/hr, Administer over 31 Minutes, ONCE, On Sun06/12/23 at 1445, For 1 dose * 1459 (New Bag - Provider: Marcella Desai RN) * 1542 (Stopped - Provider: Marcella Desai RN) sodium chloride flush 0.9 % injection 5-40 mL 5-40 mL, IntraVENous, EVERY 12 HOURS SCHEDULED (2 times per day), First dose on Sun06/11/23 at 2100,Until Discontinued, For Line Patency: Peripheral IV = [...] Midline or Central Line = 20 mL/lumen * 0752 (Not Given - Provider: Marcella Desai RN - Reason: IV Fluid Infusing) * 2150 (Given - Provider: Keyanna Friend RN) * 1018 (Given - Provider: Lucrecia Cabrera RN) * 2048 (Given - Provider: Keyanna Friend RN) * 0837 (Given - Provider: Marcella Tsang RN) * 2100 (Due) tamsulosin (FLOMAX) capsule 0.4 mg 0.4 mg, Oral, 2 TIMES DAILY, First dose on Sun06/11/23 at 2315, Until Discontinued, Do not crush or break. Give 30 minutes after a full meal to limit risk of orthostatic hypotension/falls. * 0636 (Held by provider - Provider: RAISA Mejia CNP - Reason: Pt NPO) * 0900 (Automatically Held - Provider: RAISA Mejia CNP) * 2100 (Automatically Held - Provider: RAISA Mejia CNP) * 0900 (Automatically Held - Provider: RAISA Mejia CNP) * 2100 (Automatically Held - Provider: RAISA Mejia CNP) * 0644 (Unheld by provider - Provider: RAISA Mejia CNP) * 0836 (Given - Provider: Marcella Tsang RN) * 2100 (Due) vitamin B-12 (CYANOCOBALAMIN) tablet 1,000 mcg 1,000 mcg, Oral, DAILY, First dose on Sun06/12/23 at 0900, Until Discontinued * 0636 (Held by provider - Provider: RAISA Mejia CNP - Reason: Pt NPO) * 0900 (Automatically Held - Provider: RAISA Mejia CNP) * 0900 (Automatically Held - Provider: RAISA Mejia CNP) * 0644 (Unheld by provider - Provider: RAISA Mejia CNP) * 0836 (Given - Provider: Marcella Tsang RN) Vitamin D (CHOLECALCIFEROL) tablet 1,000 Units 1,000 Units, Oral, DAILY, First dose on Sun06/12/23 at 0900, Until Discontinued, Labeling may look different. 25 ngg=7428 Units. Please double check dosages. * 0636 (Held by provider - Provider: RAISA Mejia CNP - Reason: Pt NPO) * 09 (Automatically Held - Provider: RAISA Mejia CNP) * 09 (Automatically Held - Provider: RAISA Mejia CNP) * 0644 (Unheld by provider - Provider: RAISA Mejia CNP) * 0836 (Given - Provider: Marcella Tsang, RN) Medication Order///01/2024 dextrose 5 % and 0.45 % sodium chloride infusion () IntraVENous, at 75 mL/hr, CONTINUOUS, Starting on Sun06/11/23 at 1500, For 48 hours * 1255 (New Bag - Provider: Marcella Desai, RN) * 0333 (New Bag - Provider: Keyanna Friend, ARA) Medication Order/ 0.9 % sodium chloride infusion IntraVENous, at 5-250 mL/hr, PRN, if patient receiving piggyback infusions and maintenance fluids are not ordered OR KVO fluids to protect IV site / prevent frequent line interruptions/ long duration, Starting on Sun06/11/23 at 1000, For piggyback infusion, administer at same rate as piggyback for atotal of 25 mL. Enter 25 mL into dose field and piggyback rate into rate field of order. If piggyback is infusing at a rate less than 100 mL/hr, enter 25 mL into dose field and 100 mL/hr into rate field of order. For KVO fluids, enter rate of 20 mL/hr or less into rate field of order. 0.9 % sodium chloride infusion IntraVENous, at 5-250 mL/hr, PRN, if patient receiving piggyback infusions and maintenance fluids are not ordered OR KVO fluids to protect IV site / prevent frequent line interruptions/ long duration, Starting on Sun06/11/23 at 1437, For piggyback infusion, administer at same rate as piggyback for atotal of 25 mL. Enter 25 mL into dose field and piggyback rate into rate field of order. If piggyback is infusing at a rate less than 100 mL/hr, enter 25 mL into dose field and 100 mL/hr into rate field of order. For KVO fluids, enter rate of 20 mL/hr or less into rate field of order. 0.9 % sodium chloride infusion 25 mL, IntraVENous, at 100 mL/hr, PRN, If patient receiving piggyback infusions without ordered maintenance IV fluids or with frequent/long duration piggyback infusions, Starting on Sun06/11/23 at 1535, Administer at the same rate as the piggyback being infused. acetaminophen (TYLENOL) suppository 650 mg(Linked Group 1) 650 mg, Rectal, EVERY 6 HOURS PRN, Starting on Sun06/11/23 at 1437, Until Discontinued, Pain Mild (1-3), Fever, For temp greater than 100.4 F (38 C), Administer if oral route cannot be used. * 0636 (Held by provider - Provider: RAISA Mejia CNP - Reason: Pt NPO) * 0644 (Unheld by provider - Provider: RAISA Mejia CNP) acetaminophen (TYLENOL) tablet 650 mg(Linked Group 1) 650 mg, Oral, EVERY 6 HOURS PRN, Starting on Sun06/11/23 at 1437, Until Discontinued, Pain Mild (1-3), Fever, For temp greater than 100.4 F (38 C), Maximum dose of acetaminophen is 4000 mg from all sources in 24 hours. * 0636 (Held by provider - Provider: RAISA Mejia CNP - Reason: Pt NPO) * 0644 (Unheld by provider - Provider: RAISA Mejia CNP) albuterol sulfate HFA (PROVENTIL;VENTOLIN;PROAIR) 108 (90 Base) MCG/ACT inhaler 2 puff 2 puff, Inhalation, EVERY 4 HOURS PRN, Starting on Sun06/11/23 at 2253, Until Discontinued, Wheezing, Initiate RT Bronchodilator Protocol: Yes - Inpatient Protocol diatrizoate meglumine-sodium (GASTROGRAFIN) 66-10 % solution 120 mL 120 mL, Oral, IMG ONCE PRN, Starting on Sun06/13/23 at 1210, Until Discontinued, Other, Please contact radiology for appropriate dilution instructions based on the procedure being performed. * 1115 (Given - Provider: Paty Linton) diazePAM (DIASTAT) rectal gel 20 mg 20 mg, Rectal, PRN, Starting on Sun06/11/23 at 2253, Until Discontinued, seizure activity>15 minutes hydrOXYzine HCl (ATARAX) tablet 25 mg 25 mg, Oral, EVERY 12 HOURS PRN, Starting on Sun06/11/23 at 2254, Until Discontinued, Itching * 0636 (Held by provider - Provider: RAISA Mejia CNP - Reason: Pt NPO) * 0644 (Unheld by provider - Provider: RIASA Mejia CNP) LORazepam (ATIVAN) tablet 0.5 mg 0.5 mg, Oral, EVERY 8 HOURS PRN, Starting on Sun06/11/23 at 2254, Until Discontinued, seizure activity * 0636 (Held by provider - Provider: RAISA Mejia CNP - Reason: Pt NPO) * 0644 (Unheld by provider - Provider: RAISA Mejia CNP) magnesium sulfate 2000 mg in 50 mL IVPB premix 2,000 mg, IntraVENous, at 25 mL/hr, Administer over 2 Hours, PRN, Other, Magnesium Replacement, Starting on Sun06/11/23 at 1437, Mag Lab Replacement Action 1.4-1.6 mg/dL 2,000 mg Total Dose Given as 1,000 mg IVPB x 2 doses or 2,000 mg IVPB x 1 dose 1.0-1.3 mg/dL 4,000 mg Total Dose Given as 1,000 mgIVPB x 4 doses or 2,000 mg IVPB x 2 doses Less than 1.0 mg/dL CALL PHYSICIAN and give 4,000 mg Total Dose Given as 1,000 mg IVPB x 4 doses or 2,000 mg IVPB x 2 doses Infuse at 1,000 mg/hr Repeat Mag level 1 hour after final administration Protocol not for use in Patients with CrCl less than 30ml/min * 0842 (New Bag - Provider: Marcella Tsang RN) * 1017 (New Bag - Provider: Marcella Tsang RN) * 1045 (Stopped - Provider: Marcella Tsang RN) * 1306 (Stopped - Provider: Marcella Tsang RN) melatonin tablet 3 mg 3 mg, Oral, NIGHTLY PRN, Starting on Sun06/11/23 at 2254, Until Discontinued, insomnia * 0636 (Held by provider - Provider: RAISA Mejia CNP - Reason: Pt NPO) * 0644 (Unheld by provider - Provider: Dorota Woodson, RAISA Espinoza CNP) ondansetron (ZOFRAN) injection 4 mg(Linked Group 2) 4 mg, IntraVENous, EVERY 6 HOURS PRN, Starting on Sun06/11/23 at 1437, Until Discontinued, Nausea, Vomiting, Administer if oral route cannot be used. * 1430 (Given - Provider: Lucrecia Cabrera RN) ondansetron (ZOFRAN-ODT) disintegrating tablet 4 mg(Linked Group 2) 4 mg, Oral, EVERY 8 HOURS PRN, Starting on Sun06/11/23 at 1437, Until Discontinued, Nausea, Vomiting * 1430 (See Alternative - Provider: Lucrecia Cabrera RN) polyethylene glycol (GLYCOLAX) packet 17 g 17 g, Oral, DAILY PRN, Starting on Sun06/11/23 at 1437, Until Discontinued, Constipation, First linetherapy for constipation sodium chloride flush 0.9 % injection 10 mL 10 mL, IntraVENous, PRN, Starting on Sun06/11/23 at 1437, Until Discontinued, Line Care, After everyIV line use * 1007 (Given - Provider: Mareclla Desai RN) sodium chloride flush 0.9 % injection 5-40 mL 5-40 mL, IntraVENous, PRN, Starting on Sun06/11/23 at 1000, Until Discontinued, Line Care, After every IV line use, For Line Patency: Peripheral IV = 5 mL; Midline or Central Line = 10 mL/lumen. If following IV push medication, administer flush at same rate as the IV push. Flush volume is determinedby type of infusion therapy being given. For non-viscous solutions use: Peripheral IV = 5 mL Midline or Central Line = 10 mL/lumen For viscous solutions (i.e. blood components, parenteral nutrition, contrast media, or after obtaining blood sample) use: Peripheral IV = 10 mL Midline or Central Line = 20 mL/lumen sodium chloride flush 0.9 % injection 5-40 mL 5-40 mL, IntraVENous, PRN, Starting on Sun06/11/23 at 1535, Until Discontinued, Line Care, For Line Patency: Peripheral IV = 5 [...] Midline or Central Line = 20 mL/lumen Order Group 1: acetaminophen (TYLENOL) tablet 650 mgJump to med 650 mg, Oral, EVERY 6 HOURS PRN, Starting on Sun06/11/23 at 1437, Until Discontinued, Pain Mild (1-3), Fever, For temp greater than 100.4 F (38 C)
Maximum dose of acetaminophen is 4000 mg from all sources in 24 hours.
Or acetaminophen (TYLENOL) suppository 650 mgJump to med 650 mg, Rectal, EVERY 6 HOURS PRN, Starting on Sun06/11/23 at 1437, Until Discontinued, Pain Mild (1-3), Fever, For temp greater than 100.4 F (38 C)
Administer if oral route cannot be used.
Group 2: ondansetron (ZOFRAN-ODT) disintegrating tablet 4 mgJump to med 4 mg, Oral, EVERY 8 HOURS PRN, Starting on Sun06/11/23 at 1437, Until Discontinued, Nausea, Vomiting Or ondansetron (ZOFRAN) injection 4 mgJump to med 4 mg, IntraVENous, EVERY 6 HOURS PRN, Starting on Sun06/11/23 at 1437, Until Discontinued, Nausea, Vomiting
Administer if oral route cannot be used.
Medication Order// enoxaparin (LOVENOX) injection 40 mg 40 mg, SubCUTAneous, DAILY, First dose on [place] 06/21/23 at 0900, Until Discontinued, Indication of Use: Prophylaxis-DVT/PE, Administer by deep subCUTAneous injection with pt lying down. Alternate injection sites on abdominal wall. Do not rub site after injection. Check with provider prior to any invasive procedure. * 1256 (Given - Provider: Yasmani Kerns RN - Comment: pt had gastrograffin with small bowel follow through) * 0950 (Given - Provider: Azalia Burciaga RN) finasteride (PROSCAR) tablet 5 mg 5 mg, Oral, NIGHTLY, First dose on [place] 24 at 0030, Until Discontinued, Women should not handlecrushed or broken finasteride tablets when they are or may potentially be , due topotential risk to the fetus. * 0044 (Not Given - Provider: Sabra Price RN - Reason: Pt NPO) * 2050 (Given - Provider: Shawnee Noyola, RN) * 2100 (Due) lacosamide (VIMPAT) tablet 150 mg 150 mg, Oral, 2 TIMES DAILY, First dose on [place] 24 at 0030, Until Discontinued * 0044 (Not Given - Provider: Sabra Price RN - Reason: Pt NPO) * 1253 (Given - Provider: Yasmani Kerns RN - Comment: pt had gastrograffin with small bowel follow through) * 2049 (Given - Provider: Shawnee Noyola RN) * 1043 (Given - Provider: Azalia Burciaga RN - Comment: Med not available at scheduled time) * 2100 (Due) lamoTRIgine (LAMICTAL) tablet 400 mg 400 mg, Oral, EVERY MORNING, First dose on [place] 06/21/23 at 0900, Until Discontinued * 1254 (Given - Provider: Yasmani Kerns RN - Comment: pt had gastrograffin with small bowel follow through) * 0950 (Given - Provider: Azalia Burciaga RN) lamoTRIgine (LAMICTAL) tablet 600 mg 600 mg, Oral, Nightly, First dose on [place] 24 at 0030, Until Discontinued * 0044 (Not Given - Provider: Sabra Price RN - Reason: Pt NPO) * 2049 (Given - Provider: Shawnee Noyola RN) * 2100 (Due) levETIRAcetam (KEPPRA) tablet 1,500 mg 1,500 mg, Oral, DAILY, First dose on [place] 24 at 0900, Until Discontinued, Do not crush or chew. * 1255 (Given - Provider: Yasmani Kerns RN - Comment: pt had gastrograffin with small bowel follow through) * 0950 (Given - Provider: Azalia Burciaga RN) levETIRAcetam (KEPPRA) tablet 2,000 mg 2,000 mg, Oral, NIGHTLY, First dose on [place] 06/21/23 at 0030, Until Discontinued, Do not crush or chew. * 0045 (Not Given - Provider: Sabra Price RN - Reason: Pt NPO) * 2049 (Given - Provider: Shawnee Noyola RN) * 2100 (Due) linaclotide (LINZESS) capsule 145 mcg 145 mcg, Oral, DAILY BEFORE BREAKFAST, First dose on [place] 06/21/23 at 0700, Until Discontinued, Administer at least 30 minutes before breakfast on an empty stomach. Do not break or chew. * 0531 (Not Given - Provider: Sabra Price RN - Reason: Pt NPO) * 0538 (Given - Provider: Shawnee Noyola RN) meclizine (ANTIVERT) tablet 25 mg 25 mg, Oral, DAILY, First dose on [place] 06/21/23 at 0900, Until Discontinued * 1254 (Given - Provider: Yasmani Kerns RN - Comment: pt had gastrograffin with small bowel follow through) * 0950 (Given - Provider: Azalia Burciaga RN) oxyBUTYnin (DITROPAN-XL) extended release tablet 10 mg 10 mg, Oral, DAILY, First dose on [place] 24 at 0900, Until Discontinued, Do not crush or break. * 1254 (Given - Provider: Yasmani Kerns RN - Comment: pt had gastrograffin with small bowel follow through) * 0950 (Given - Provider: Azalia Burciaga, RN) pantoprazole (PROTONIX) tablet 40 mg 40 mg, Oral, DAILY BEFORE BREAKFAST, First dose on [place] 24 at 0700, Until Discontinued, Do not crush or break. * 0532 (Not Given - Provider: Sabra Price RN - Reason: Pt NPO) * 0538 (Given - Provider: Shawnee Noyola RN) primidone (MYSOLINE) tablet 250 mg 250 mg, Oral, EVERY MORNING, First dose on [place] 06/21/23 at 0900, Until Discontinued * 1255 (Given - Provider: Yasmani Kerns RN - Comment: pt had gastrograffin with small bowel follow through) * 0950 (Given - Provider: Azalia Burciaga RN) primidone (MYSOLINE) tablet 375 mg 375 mg, Oral, NIGHTLY, First dose on [place] 06/21/23 at 0030, Until Discontinued * 0045 (Not Given - Provider: Sabra Price RN - Reason: Pt NPO) * 2050 (Given - Provider: Shawnee Noyola RN) * 2100 (Due) sodium chloride flush 0.9 % injection 5-40 mL 5-40 mL, IntraVENous, EVERY 12 HOURS SCHEDULED (2 times per day), First dose on [place] 06/21/23 at 0900, Until Discontinued, For Line Patency: Peripheral IV = 5 mL; Midline or Central Line = 10 mL/lumen.If following IV push medication, administer flush at same rate as the IV push. Flush volume is determined by type of infusion therapy being given. For non-viscous solutions use: Peripheral IV = 5 mL Midline or Central Line = 10 mL/lumen For viscous solutions (i.e. blood components, parenteral nutrition, contrast media, or after obtaining blood sample) use: Peripheral IV = 10 mL Midline or CentralLine = 20 mL/lumen * 1314 (Given - Provider: Yasmani Kerns RN) * 2052 (Given - Provider: Shawnee Noyola RN) * 0952 (Given - Provider: Azalia Burciaga RN) * 2100 (Due) Medication Order// 0.9 % sodium chloride infusion IntraVENous, at 5-250 mL/hr, PRN, if patient receiving piggyback infusions and maintenance fluids are not ordered OR KVO fluids to protect IV site / prevent frequent line interruptions/ long duration, Starting on Sun06/20/23 at 2342, For piggyback infusion, administer at same rate [...] Rectal, EVERY 6 HOURS PRN, Starting on Sun06/20/23 at 2342, Until Discontinued, Pain Mild (1-3), Fever, For temp greater than 100.4 F (38 C), Administer if oral route cannot be used. acetaminophen (TYLENOL) tablet 650 mg(Linked Group 1) 650 mg, Oral, EVERY 6 HOURS PRN, Starting on Sun06/20/23 at 2342, Until Discontinued, Pain Mild (1-3), Fever, For temp greater than 100.4 F (38 C), Maximum dose of acetaminophen is 4000 mg from all sources in 24 hours. albuterol sulfate HFA (PROVENTIL;VENTOLIN;PROAIR) 108 (90 Base) MCG/ACT inhaler 2 puff 2 puff, Inhalation, EVERY 4 HOURS PRN, Starting on Sun06/21/23 at 0006, Until Discontinued, Wheezing, Initiate RT Bronchodilator Protocol: Yes - Inpatient Protocol diatrizoate meglumine-sodium (GASTROGRAFIN) 66-10 % solution 240 mL 240 mL, Per NG tube, IMG ONCE PRN, Starting on Sun06/21/23 at 0825, Until Discontinued, Other, Please contact radiology for appropriate dilution instructions based on the procedure being performed. * 0825 (Given - Provider: Libra Dao) diazePAM (DIASTAT) 20 MG rectal gel 20 mg (Patient Supplied) 20 mg, Rectal, PRN, Starting on Sun06/21/23 at 0006, Until Discontinued, seizure activity>15 minutes, This medication is non-formulary. Please see if the patient can bring their home supply. Please send down to pharmacy for identification. hydrOXYzine HCl (ATARAX) tablet 25 mg 25 mg, Oral, EVERY 12 HOURS PRN, Starting on Sun06/21/23 at 0006, Until Discontinued, Itching magnesium sulfate 2000 mg in 50 mL IVPB premix 2,000 mg, IntraVENous, at 25 mL/hr, Administer over 2 Hours, PRN, Other, Magnesium Replacement, Starting on Sun06/20/23 at 2342, Mag Lab Replacement Action 1.4-1.6 mg/dL 2,000 [...] 2 doses Infuse at 1,000 mg/hr Repeat Maglevel 1 hour after final administration Protocol not for use in Patients with CrCl less than 30ml/min ondansetron (ZOFRAN) injection 4 mg(Linked Group 2) 4 mg, IntraVENous, EVERY 6 HOURS PRN, Starting on Sun06/20/23 at 2342, Until Discontinued, Nausea, Vomiting, Administer if oral route cannot be used. ondansetron (ZOFRAN-ODT) disintegrating tablet 4 mg(Linked Group 2) 4 mg, Oral, EVERY 8 HOURS PRN, Starting on Sun06/20/23 at 2342, Until Discontinued, Nausea, Vomiting polyethylene glycol (GLYCOLAX) packet 17 g 17 g, Oral, DAILY PRN, Starting on Sun06/20/23 at 2342, Until Discontinued, Constipation, First line therapy for constipation potassium bicarb-citric acid (EFFER-K) effervescent tablet 40 mEq(Linked Group 3) 40 mEq, Oral, PRN, Starting on Sun06/20/23 at 2342, Until Discontinued, Per Potassium Replacement Protocol, Administer [...] 3) 40 mEq, Oral, PRN, Starting on Sun06/20/23 at 2342, Until Discontinued, Potassium Replacement, May give alternative linked oral order (ordered as effervescent, packet, or liquid solution) if patient unable to tolerate tablet. K Lab Replacement Action 3.1 to 3.5 40 mEq ORAL x 1 Under 3.1 Refer to IV replacement protocol Recheck K level in AM. Protocol not for use in patients with CrCl less than 30mL/min. Do not crush, chew, or suck on tablet. Tablet may also be broken in half and each half swallowed separately. potassium chloride 10 mEq/100 mL IVPB (Peripheral Line)(Linked Group 3) 10 mEq, IntraVENous, PRN, Starting on Sun06/20/23 at 2342, Until Discontinued, at 100 mL/hr, Potassium Replacement, [...] mL 5-40 mL, IntraVENous, PRN, Starting on Sun06/20/23 at 2342, Until Discontinued, Line Care, After every IV [...] For viscous solutions (i.e. blood components, parenteral nutrition,contrast media, or after obtaining blood sample) use: Peripheral IV = 10 mL Midline or Central Line= 20 mL/lumen Order Group 1: acetaminophen (TYLENOL) tablet 650 mgJump to med 650 mg, Oral, EVERY 6 HOURS PRN, Starting on Sun06/20/23 at 2342, Until Discontinued, Pain Mild (1-3), Fever, For temp greater than 100.4 F (38 C)
Maximum dose of acetaminophen is 4000 mg from all sources in 24 hours.
Or acetaminophen (TYLENOL) suppository 650 mgJump to med 650 mg, Rectal, EVERY 6 HOURS PRN, Starting on 4/17/24 at 2342, Until Discontinued, Pain Mild (1-3), Fever, For temp greater than 100.4 F (38 C)
Administer if oral route cannot be used.
Group 2: ondansetron (ZOFRAN-ODT) disintegrating tablet 4 mgJump to med 4 mg, Oral, EVERY 8 HOURS PRN, Starting on Sun06/20/23 at 2342, Until Discontinued, Nausea, Vomiting Or ondansetron (ZOFRAN) injection 4 mgJump to med 4 mg, IntraVENous, EVERY 6 HOURS PRN, Starting on Sun06/20/23 at 2342, Until Discontinued, Nausea, Vomiting
Administer if oral route cannot be used.
Group 3: potassium chloride (KLOR-CON M) extended release tablet 40 mEqJump to med 40 mEq, Oral, PRN, Starting on Sun06/20/23 at 2342, Until Discontinued, Potassium Replacement
May give alternative linked oral order (ordered as effervescent, packet, or liquid solution) if patient unable to tolerate tablet. K Lab &a mp;nbsp; Replacement Action&amp ;nbsp;3.1 to 3.5 40 mEq ORAL x 1 Under 3.1 Refer to IV replacement romelia col Recheck K level in AM. Protocol not for use in patients with CrCl less than 30 mL/min. Do not crush, chew, or suck on tablet. Tablet may also be broken in half and each half swallowed separately.
Or potassium bicarb-citric acid (EFFER-K) effervescent tablet 40 mEqJump to med 40 mEq, Oral, PRN, Starting on Sun06/20/23 at 2342, Until Discontinued, Per Potassium Replacement Protocol
Administer as alternative if patient unable to tolerate oral tablet. K Lab & amp;nbsp; Replacement Action 3.1 to 3.5 &am p;nbsp; 40 mEq ORAL x 1 Under 3.1 &nbs p; Refer to IV replacement protocol Recheck K [...] med 10 mEq, IntraVENous, PRN, Starting on Sun06/20/23 at 2342, Until Discontinued, at 100 mL/hr, Potassium Replacement
K Lab Replacement Action 2.7 to 3.0 10 mEq IVPB x 6 doses (60 mEq Total) Under 2.7 CALL PROVIDER and administer 10 mEq IVPB x 6 doses (60 mEq Total) Infuse at 10 mEq/hr. Repeat Potassium lab 1 hour after final administration. Protocol not for use in patients with CrCl less than 30 mL/min.
Medication Order//07/2023 cetirizine (ZYRTEC) tablet 10 mg 10 mg, Oral, DAILY, First dose on Sun02/07/24 at 0900, Until Discontinued * 0825 (Given - Provider: Gabriella Varghese RN) dextromethorphan-guaiFENesin (MUCINEX DM) 30-600 MG per extended release tablet 1 tablet 1 tablet, Oral, 2 TIMES DAILY, First dose (after last modification) on Vilma 02/07/24 at 0900, Until Discontinued, Do not crush or break. * 0825 (Given - Provider: Gabriella Varghese RN) * 2100 (Due) enoxaparin (LOVENOX) injection 40 mg 40 mg, SubCUTAneous, DAILY, First dose on Sun02/03/24 at 0900, Until Discontinued, Indication of Use: Prophylaxis-DVT/PE * 0951 (Given - Provider: Carol Harman RN) * 1112 (Given - Provider: Carol Harman RN) * 0810 (Given - Provider: Gabriella Varghese RN) famotidine (PEPCID) 20 mg in sodium chloride (PF) 0.9 % 10 mL injection (CANCELED) 20 mg, IntraVENous, 2 TIMES DAILY, First dose on Sun02/04/24 at 0900, Until Discontinued, IV Push over minimum of 2 minutes - Dilute with 10 mL NS * 0951 (Given - Provider: Carol Harman RN) * 2128 (Given - Provider: Rachel Eli RN) * 1052 (Not Given - Provider: Carol Harman RN - Reason: Other - Comment: Order discontinued) finasteride (PROSCAR) tablet 5 mg 5 mg, Oral, NIGHTLY, First dose on Sun02/06/24 at 1900, Until Discontinued, Women should not handlecrushed or broken finasteride tablets when they are or may potentially be , due topotential risk to the fetus. * 1905 (Given - Provider: Whitney Freed RN) * 1899 (Due - Provider: Shani Bauman [facility]) lacosamide (VIMPAT) injection 150 mg (CANCELED) 150 mg, IntraVENous, 2 TIMES DAILY, First dose (after last modification) on Sun02/04/24 at 1145, Until Discontinued, Doses up to 400 mg may be administered undiluted at less than or equal to 80 mg/minute (eg, 400 mg over 5 minutes) * 0952 (Given - Provider: Carol Harman RN) * 2128 (Given - Provider: Rachel Eli RN) * 1052 (Not Given - Provider: Carol Harman RN - Reason: Other - Comment: Order discontinued) lacosamide (VIMPAT) tablet 150 mg 150 mg, Oral, 2 TIMES DAILY, First dose (after last reorder) on Sun02/06/24 at 1045, Until Discontinued * 1112 (Given - Provider: Caorl Harman RN) * 1718 (Given - Provider: Carol Harman RN) * 0811 (Given - Provider: Gabriella Varghese RN) * 1704 (Given - Provider: Kathy Llamas RN) lamoTRIgine (LAMICTAL) tablet 400 mg 400 mg, Oral, EVERY MORNING, First dose (after last modification) on Sun02/06/24 at 1100, Until Discontinued * 1112 (Given - Provider: Carol Harman RN) * 0811 (Given - Provider: Gabriella Varghese RN) lamoTRIgine (LAMICTAL) tablet 600 mg 600 mg, Oral, Nightly, First dose on Sun02/06/24 at 1700, Until Discontinued * 1718 (Given - Provider: Carol Harman RN) * 1704 (Given - Provider: Kathy Llamas, ARA) latanoprost (XALATAN) 0.005 % ophthalmic solution 1 drop 1 drop, Both Eyes, NIGHTLY, First dose on Sun02/06/24 at 2100, Until Discontinued * 2028 (Given - Provider: Whitney Freed RN) * 2100 (Due) levETIRAcetam (KEPPRA) 1500 mg/100 mL IVPB (CANCELED) 1,500 mg, IntraVENous, EVERY 12 HOURS, First dose (after last modification) on Sun02/04/24 at 1200,Until Discontinued * 0032 (New Bag - Provider: Alesha Galicia RN) * 0047 (Stopped - Provider: Alesha Galicia RN) * 1216 (New Bag - Provider: Carol Harman RN) * 1251 (Stopped - Provider: Carol Harman RN) * 0131 (New Bag - Provider: Rachel Eli RN) * 0146 (Stopped - Provider: Rachel Eli RN) levETIRAcetam (KEPPRA) tablet 1,500 mg 1,500 mg, Oral, DAILY, First dose (after last modification) on Sun02/06/24 at 1100, Until Discontinued, Do not crush or chew. * 1111 (Given - Provider: Carol Harman RN) * 0812 (Given - Provider: Gabriella Varghese RN) levETIRAcetam (KEPPRA) tablet 2,000 mg 2,000 mg, Oral, NIGHTLY, First dose on Sun02/06/24 at 1700, Until Discontinued, Do not crush or chew. * 1718 (Given - Provider: Carol Harman RN) * 1704 (Given - Provider: Kathy Llamas RN) linaclotide (LINZESS) capsule 145 mcg (Patient Supplied) 145 mcg, Oral, DAILY BEFORE BREAKFAST, First dose on Sun02/07/24 at 0700, Until Discontinued, Administer at least 30 minutes before breakfast on an empty stomach. Do not break or chew. * 0820 (Not Given - Provider: Gabriella Varghese RN - Reason: Medication not available) magnesium oxide (MAG-OX) tablet 400 mg 400 mg, Oral, DAILY, First dose (after last modification) on Sun02/06/24 at 1100, Until Discontinued * 1112 (Given - Provider: Carol Harman RN) * 0811 (Given - Provider: Gabriella Varghese RN) meclizine (ANTIVERT) tablet 25 mg 25 mg, Oral, DAILY, First dose (after last modification) on Sun02/06/24 at 1100, Until Discontinued * 1112 (Given - Provider: Carol Harman RN) * 0812 (Given - Provider: Gabriella Varghese RN) pantoprazole (PROTONIX) tablet 40 mg 40 mg, Oral, DAILY BEFORE BREAKFAST, First dose on Sun02/07/24 at 0700, Until Discontinued, Do not crush or break. * 0810 (Given - Provider: Gabriella Varghese RN) potassium chloride (KLOR-CON M) extended release tablet 20 mEq 20 mEq, Oral, DAILY, First dose on Sun02/06/24 at 0945, Until Discontinued, Do not crush, chew, or suck on tablet. Tablet may also be broken in half and each half swallowed separately. * 1112 (Given - Provider: Carol Harman RN) * 0811 (Given - Provider: Gabriella Varghese, RN) primidone (MYSOLINE) tablet 250 mg 250 mg, Oral, EVERY MORNING, First dose (after last modification) on Sun02/06/24 at 1100, Until Discontinued * 1111 (Given - Provider: Carol Harman RN) * 0811 (Given - Provider: Gabriella Varghese RN) primidone (MYSOLINE) tablet 375 mg 375 mg, Oral, NIGHTLY, First dose on Sun02/06/24 at 1900, Until Discontinued * 190 (Given - Provider: Whitney Freed RN) * 190 (Due - Provider: Shani Bauman [facility]) sodium chloride flush 0.9 % injection 10 mL 10 mL, IntraVENous, EVERY 12 HOURS SCHEDULED (2 times per day), First dose on Sun02/03/24 at 0900, Until Discontinued * 0959 (Given - Provider: Carol Harman RN) * 2129 (Not Given - Provider: Rachel Eli RN - Reason: IV Fluid Infusing) * 1053 (Not Given - Provider: Carol Harman RN - Reason: Loss of IV access) * 1907 (Not Given - Provider: Whitney Freed RN - Reason: Loss of IV access) * 0819 (Not Given - Provider: Gabriella Varghese RN - Reason: Loss of IV access) * 2100 (Due) tamsulosin (FLOMAX) capsule 0.4 mg 0.4 mg, Oral, 2 TIMES DAILY, First dose (after last modification) on Sun02/06/24 at 1100, Until Discontinued, Do not crush or break. Give 30 minutes after a full meal to limit risk of orthostatic hypotension/falls. * 1111 (Given - Provider: Carol Harman RN) * 1906 (Given - Provider: Whitney Freed RN) * 0810 (Given - Provider: Gabriella Varghese RN) * 190 (Due) Medication Order//07/2023 0.9 % sodium chloride infusion (CANCELED) IntraVENous, at 80 mL/hr, CONTINUOUS, Starting on Sun02/04/24 at 1745 * 0650 (New Bag - Provider: Carol Harman, RN) * 1157 (Stopped - Provider: Carol Harman RN) dextrose 5 % and 0.45 % NaCl with KCl 20 mEq infusion (CANCELED) IntraVENous, at 100 mL/hr, CONTINUOUS, Starting on Sun02/05/24 at 1130 * 1158 (New Bag - Provider: Carol Harman, RN) * 2128 (New Bag - Provider: Rachel Eli, RN) * 0755 (New Bag - Provider: Carol Harman, ARA) * 1348 (Stopped - Provider: Kathy Llamas RN) Medication Order//07/2023 0.9 % sodium chloride infusion IntraVENous, at 5-250 mL/hr, PRN, if patient receiving piggyback infusions and maintenance fluids are not ordered OR KVO fluids to protect IV site / prevent frequent line interruptions/ long duration, Starting on Sun02/03/24 at 0343, For piggyback infusion, administer at same rate [...] Rectal, EVERY 6 HOURS PRN, Starting on 02/03/24 at 0343, Until Discontinued, Pain Mild (1-3), Fever, For temp greater than 100.4 F (38 C), Administer if oral route cannot be used. acetaminophen (TYLENOL) tablet 650 mg(Linked Group 1) 650 mg, Oral, EVERY 6 HOURS PRN, Starting on 02/03/24 at 0343, Until Discontinued, Pain Mild (1-3), Fever, For temp greater than 100.4 F (38 C), Maximum dose of acetaminophen is 4000 mg from all sources in 24 hours. dextromethorphan-guaiFENesin (MUCINEX DM) 30-600 MG per extended release tablet 1 tablet (CANCELED) 1 tablet, Oral, 2 TIMES DAILY PRN, Starting on Sun02/06/24 at 0915, Until Sun02/07/24 at 0806, Cough, Do not crush or break. * 1112 (Given - Provider: Carol Harman RN) diatrizoate meglumine-sodium (GASTROGRAFIN) 66-10 % solution 120 mL 120 mL, Oral, IMG ONCE PRN, Starting on Sun02/05/24 at 1158, Until Discontinued, Other, Please contact radiology for appropriate dilution instructions based on the procedure being performed. * 1159 (Given - Provider: Maricruz Vaughan) diazePAM (DIASTAT) rectal gel 20 mg 20 mg, Rectal, PRN, Starting on Sun02/06/24 at 0924, Until Discontinued, seizure activity>15 minutes LORazepam (ATIVAN) tablet 0.5 mg 0.5 mg, Oral, EVERY 8 HOURS PRN, Starting on Sun02/06/24 at 0924, Until Discontinued, seizure activity melatonin tablet 3 mg 3 mg, Oral, NIGHTLY PRN, Starting on Sun02/06/24 at 0924, Until Discontinued, insomnia ondansetron (ZOFRAN) injection 4 mg(Linked Group 2) 4 mg, IntraVENous, EVERY 6 HOURS PRN, Starting on 02/03/24 at 0343, Until Discontinued, Nausea, Vomiting, Administer if oral route cannot be used. ondansetron (ZOFRAN-ODT) disintegrating tablet 4 mg(Linked Group 2) 4 mg, Oral, EVERY 8 HOURS PRN, Starting on Sun02/03/24 at 0343, Until Discontinued, Nausea, Vomiting polyethylene glycol (GLYCOLAX) packet 17 g 17 g, Oral, DAILY PRN, Starting on Sun02/03/24 at 0343, Until Discontinued, Constipation, First line therapy for constipation potassium bicarb-citric acid (EFFER-K) effervescent tablet 40 mEq(Linked Group 3) 40 mEq, Oral, PRN, Starting on Sun02/03/24 at 0343, Until Discontinued, Per Potassium Replacement Protocol, Administer [...] 3) 40 mEq, Oral, PRN, Starting on 02/03/24 at 0343, Until Discontinued, Potassium Replacement, May give alternative linked oral order (ordered as effervescent, packet, or liquid solution) if patient unable to tolerate tablet. K Lab Replacement Action 3.1 to 3.5 40 mEq ORAL x 1 Under 3.1 Refer to IV replacement protocol Recheck K level in AM. Protocol not for use in patients with CrCl less than 30mL/min. Do not crush, chew, or suck on tablet. Tablet may also be broken in half and each half swallowed separately. potassium chloride 10 mEq/100 mL IVPB (Peripheral Line)(Linked Group 3) 10 mEq, IntraVENous, PRN, Starting on 02/03/24 at 0343, Until Discontinued, at 100 mL/hr, Potassium Replacement, [...] mL/min. sodium chloride flush 0.9 % injection 10 mL 10 mL, IntraVENous, PRN, Starting on 02/03/24 at 0343, Until Discontinued, Line Care, After every IV line use Order Group 1: acetaminophen (TYLENOL) tablet 650 mgJump to med 650 mg, Oral, EVERY 6 HOURS PRN, Starting on 02/03/24 at 0343, Until Discontinued, Pain Mild (1-3), Fever, For temp greater than 100.4 F (38 C), Maximum dose of acetaminophen is 4000 mg from all sources in 24 hours. Or acetaminophen (TYLENOL) suppository 650 mgJump to med 650 mg, Rectal, EVERY 6 HOURS PRN, Starting on 02/03/24 at 0343, Until Discontinued, Pain Mild (1-3), Fever, For temp greater than 100.4 F (38 C), Administer if oral route cannot be used. Group 2: ondansetron (ZOFRAN-ODT) disintegrating tablet 4 mgJump to med 4 mg, Oral, EVERY 8 HOURS PRN, Starting on 02/03/24 at 0343, Until Discontinued, Nausea, Vomiting Or ondansetron (ZOFRAN) injection 4 mgJump to med 4 mg, IntraVENous, EVERY 6 HOURS PRN, Starting on 02/03/24 at 0343, Until Discontinued, Nausea, Vomiting, Administer if oral route cannot be used. Group 3: potassium chloride (KLOR-CON M) extended release tablet 40 mEqJump to med 40 mEq, Oral, PRN, Starting on 02/03/24 at 0343, Until Discontinued, Potassium Replacement, May give alternative linked oral order (ordered as effervescent, packet, or liquid solution) if patient unable to tolerate tablet. K Lab Replacement Action 3.1 to 3.5 40 mEq ORAL x 1 Under 3.1 Refer to IV replacement protocol Recheck K level in AM. Protocol not for use in patients with CrCl less than 30mL/min. Do not crush, chew, or suck on tablet. Tablet may also be broken in half and each half swallowed separately. Or potassium bicarb-citric acid (EFFER-K) effervescent tablet 40 mEqJump to med 40 mEq, Oral, PRN, Starting on 02/03/24 at 0343, Until Discontinued, Per Potassium Replacement Protocol, Administer [...] med 10 mEq, IntraVENous, PRN, Starting on 02/02/24 at 0343, Until Discontinued, at 100 mL/hr, Potassium Replacement, K Lab Replacement Action 2.7 to 3.0 10 mEq IVPB x 6 doses (60 mEq Total) Under 2.7 CALL PROVIDER and administer 10 mEq IVPB x 6 doses (60 mEq Total) Infuse at 10 mEq/hr. Repeat Potassium lab 1 hour after final administration. Protocol not for use in patients with CrCl less than 30 mL/min. Medication Order04/18/// heparin (porcine) injection 5,000 Units 5,000 Units, subcutaneous, Every 8 hours scheduled, First dose on Sun04/08/23 at 1100, Notify prescriber if INR greater than 1.9, hemoglobin less than 10 mg/dL, aPTT greater than 40 seconds, and/or platelet count less than 100,000/mm Look-alike/sound-alike medication - verify indication for use. Observe for bleeding. * 0616 (Given - Provider: Melany Castellanos RN) * 1323 (Given - Provider: Jackson Giles RN) * 2318 (Given - Provider: Melany Castellanos, RN) * 0629 (Given - Provider: Melany Castellanos, RN) * 1325 (Given - Provider: Martina Linton, RN) * 2047 (Given - Provider: Mendy Gonzáles, RN) * 2200 (Canceled Entry - Provider: Mendy Gonzáles, RN) * 0531 (Given - Provider: Mendy Gonzáles, RN) lacosamide (VIMPAT) 150 mg in sodium chloride 0.9 % 50 mL IVPB (CANCELED) 150 mg, intravenous, at 130 mL/hr, Administer over 30 Minutes, Every 12 hours, First dose on Sun04/08/23 at 1430 * 0215 (New Bag - Provider: Melany Castellanos RN) * 0245 (Stop Bag - Provider: Melany Castellanos RN) lacosamide (VIMPAT) tablet 150 mg 150 mg, oral, Every 12 hours, First dose on Sun04/18/23 at 1300, Swallow tablets whole; do not divide. * 1323 (Given - Provider: Jackson Giles RN) * 0143 (Given - Provider: Melany Castellanos, RN) * 1325 (Given - Provider: Martina Linton RN) * 0146 (Given - Provider: Mendy Gonzáles, ARA) lamoTRIgine (LaMICtal) tablet 400 mg 400 mg, oral, Daily, First dose on Sun04/18/23 at 0900, Look-alike/sound-alike medication - verify indication for use. * 0737 (Given - Provider: Jackson Giles RN) * 0905 (Given - Provider: Martina Linton RN) * 0819 (Given - Provider: Martina Linton RN) lamoTRIgine (LaMICtal) tablet 600 mg 600 mg, oral, Nightly, First dose on Sun04/17/23 at 2200, Look-alike/sound-alike medication - verify indication for use. * 231 (Given - Provider: Melany Castellanos RN) * 2038 (Given - Provider: Mendy Gonzáles, ARA) * 2199 (Canceled Entry - Provider: Mendy Gonzáles, RN) latanoprost (XALATAN) 0.005 % ophthalmic solution 1 drop 1 drop, both eyes, Nightly, First dose on Sun04/09/23 at 2200 * 2318 (Given - Provider: Melany Castellanos RN) * 2039 (Given - Provider: Mendy Gonzáles, ARA) * 2199 (Canceled Entry - Provider: Mendy Gonzáles, ARA) levETIRAcetam (KEPPRA) IVPB 1500 mg/100 mL in iso-osmotic sodium chloride (15 mg/mL premix) (CANCELED) 1,500 mg, intravenous, at 400 mL/hr, Administer over 15 Minutes, Every morning before breakfast, First dose on Sun04/08/23 at 1200, Look-alike/sound-alike medication - verify indication for use. * 0645 (New Bag - Provider: Melany Castellanos RN) * 0658 (Rate/Dose Verify - Provider: Jackson Giles RN) * 0700 (Stop Bag - Provider: Jackson Giles, ARA) levETIRAcetam (KEPPRA) tablet 1,500 mg 1,500 mg, oral, Daily, First dose on Sun04/19/23 at 0900, Look-alike/sound-alike medication - verify indication for use. * 0904 (Given - Provider: Martina Linton RN) * 0819 (Given - Provider: Martina Linton RN) levETIRAcetam (KEPPRA) tablet 2,000 mg 2,000 mg, oral, Nightly, First dose on Sun04/18/23 at 2200, Look-alike/sound-alike medication - verify indication for use. * 2317 (Given - Provider: Melany Castellanos RN) * 203 (Given - Provider: Mendy Gonzáles, ARA) * 2200 (Canceled Entry - Provider: Mendy Gonzáles, ARA) magnesium oxide (MAGOX) tablet 400 mg 400 mg, oral, Daily, First dose on Sun04/19/23 at 1045 * 1324 (Given - Provider: Martina Linton RN) * 0824 (Given - Provider: Martina Linton RN) primidone (MYSOLINE) tablet 250 mg 250 mg, oral, Daily, First dose on Sun04/18/23 at 0900 * 0737 (Given - Provider: Jackson Giles RN) * 0905 (Given - Provider: Martina Linton RN) * 0824 (Given - Provider: Martina Linton, ARA) primidone (MYSOLINE) tablet 375 mg 375 mg, oral, Nightly, First dose on Sun04/17/23 at 2200 * 2317 (Given - Provider: Melany Castellanos RN) * 2039 (Given - Provider: Mendy Gonzáles, ARA) * 220 (Canceled Entry - Provider: Mendy Gonzáles, ARA) sodium chloride 0.9 % flush 20 mL(Linked Group 1) 20 mL, intravenous, Every 12 hours, First dose (after last modification) on Sun04/09/23 at 0100, PICC line. Administer 10 mL per lumen; 20 mL total (for double lumen flush) * 0216 (Given - Provider: Melany Castellanos RN) * 1229 (Given - Provider: Jackson Giles RN) * 0144 (Given - Provider: Melany Castellanos, RN) * 0904 (Given - Provider: Martina Linton RN) * 0100 (Not Given - Provider: Mendy Gonzáles RN - Reason: Loss of IV access) sodium chloride 0.9 % flush 3 mL 3 mL, intravenous, Every 12 hours scheduled, First dose on Sun04/08/23 at 0945 * 0738 (Not Given - Provider: Jackson Giles RN - Reason: Order parameters not met - Comment: PIV not in place) * 2325 (Given - Provider: Melany Castellanos, RN) * 0900 (Canceled Entry - Provider: Martina Linton, RN) * 2100 (Not Given - Provider: Mendy Gonzáles RN - Reason: Loss of IV access) * 0900 (Canceled Entry - Provider: Martina Linton RN - Comment: no IV access, pt discharging) terazosin (HYTRIN) capsule 1 mg 1 mg, nasogastric, Daily, First dose on Sun04/13/23 at 1145 * 0737 (Given - Provider: Jackson Giles RN) * 0905 (Given - Provider: Martina Linton RN) * 0824 (Given - Provider: Martina Linton RN) Medication Order04/18//// albuterol (PROVENTIL,VENTOLIN) nebulizer solution 2.5 mg 2.5 mg, nebulization, Every 6 hours PRN, wheezing, shortness of breath, Starting on Sun04/09/23 at 0820, Implement INPATIENT/ED Bronchodilator Clinical Practice Guidelines? Yes, Document: \[email or web address]\[email or web address]\[email or web address]\Orders\Respiratory Care Guidelines\CPG Bronchodilator 2020.pdf barium sulfate (E-Z-DISK) [...] imaging, contrast, Liquid Polibar plus, Starting on 04/16/23 at 0754, For 1 dose barium sulfate (VARIBAR HONEY) 40 % (w/v) 29% (w/w) suspension 250 mL 250 mL, oral, Once in imaging, contrast, contrast, Starting on 04/16/23 at 0754, For 1 dose dextrose (GLUTOSE) 40 % gel 15 g 15 g, oral, As needed, low blood sugar, blood glucose less than 70 mg/dL, Starting on Sun04/08/23 [id number], If patient conscious and taking PO. If blood glucose is not greater than 70 mg/dL after initial treatment, repeat treatment. dextrose 5 % (D5W) infusion 100 mL/hr, intravenous, Continuous PRN, blood glucose less than 70 mg/dL, Starting on Sun04/08/23 [id number], Use immediately following dextrose 50% or glucagon treatment for patients who are unconsciousor NPO. Contact prescriber for additional orders. If blood glucose is not greater than 70 mg/dL after initial treatment, repeat treatment. dextrose 50 % in water (D50W) 50% solution 25 mL 25 mL, intravenous, As needed, low blood sugar, blood glucose less than 70 mg/dL and unconscious orNPO with IV access, Starting on Sun04/08/23 at [...] mg/dL after initial treatment, repeat treatment. VESICANT (RED)Warning: HYPERTONIC solution. glucagon HCL injection 1 mg [...] additional orders. If blood glucose is not greaterthan 70 mg/dL after initial treatment, repeat treatment. [...] result continue the replacement orders as needed. * 0747 (New Bag - Provider: Jackson Giles, RN) * 0948 (Stop Bag - Provider: Jackson Giles, RN) * 0649 (New Bag - Provider: Melany Castellanos RN) * 0849 (Stop Bag - Provider: Martina Linton RN) [...] complete. With each magnesium result continue the replacementorders as needed. potassium chloride IVPB 10 mEq/100 [...] With each potassium result continue the replacement ordersas needed VESICANT (YELLOW) Infuse each 10 mEq over a minimum of 1 hour., Indications: hypokalemia sod phos di, mono-K phos mono (K-PHOS NEUTRAL) 250 mg tablet 2 tablet(Linked Group 2) 2 tablet, oral, As needed, for phosphorus level 2.3 mg/dL or less., Starting on Sun04/09/23 at 0817,If dose administered, recheck phosphorus level 4 hours after last dose. Look-alike/sound-alike medication - verify indication for use. Give with a full glass of water. * 0252 (See Alternative - Provider: Melany Castellanos, RN) * 0636 (See Alternative - Provider: Jackson Giles, RN) * 0638 (See Alternative - Provider: Jackson Giles, RN) * 0655 (See Alternative - Provider: Jackson Giles, RN) * 1631 (See Alternative - Provider: Jackson Giles, RN) * 203 (See Alternative - Provider: Melany Castellanos, RN) sodium chloride 0.9 % flush 20 [...] Minutes, As needed, line care, line care afterIVPB administration, Starting on Sun04/08/23 at 0935 sodium chloride 0.9 % infusion [...] infusion complete. Infuse using central line access. * 0252 (New Bag - Provider: Melany Castellanos, RN) * 0636 (Paused - Provider: Jackson Giles, RN) * 0638 (Restarted - Provider: Jackson Giles RN) * 0655 (Stop Bag - Provider: Jackson Giles RN) * 1631 (New Bag - Provider: Jackson Giles, RN) * 203 (Stop Bag - Provider: Melany Castellanos, ARA) sodium phosphate 20 mmol in sodium chloride 0.9 % 250 mL IVPB(Linked Group 2) 20 mmol, intravenous, at 42.8 mL/hr, Administer over 6 Hours, As needed, for phosphorus level 2.3 mg/dL or less, Starting on Sun04/09/23 at 0817, Administer over 6 hours via dedicated line (peripheralline). If administered, recheck phosphorus level 4 hours after infusion complete. * 0252 (See Alternative - Provider: Melany Castellanos RN) * 0636 (See Alternative - Provider: Jackson Giles RN) * 0638 (See Alternative - Provider: Jackson Giles RN) * 0655 (See Alternative - Provider: Jackson Giles, ARA) * 1631 (See Alternative - Provider: Jackson Giles, RN) * 203 (See Alternative - Provider: Melany Castellanos, ARA) Order Group 1: Consult PICC nurse - [...] Administer over 6 hours via dedicated line (peripheralline). If administered, recheck phosphorus level 4 hours [...] mg/dL or less., Starting on Sun04/09/23 at 0817,If dose administered, recheck phosphorus level 4 hours after last dose. Look-alike/sound-alike medication - verify indication for use. Give with a full glass of water. Medication Order// enoxaparin (LOVENOX) injection 40 mg 40 mg, SubCUTAneous, DAILY, First dose on 04/19/24 at 1915, Until Discontinued, Indication of Use: Prophylaxis-DVT/PE * 0859 (Given - Provider: Georgie Serra RN) * 0841 (Given - Provider: Carol Harman RN) * 0902 (Given - Provider: Georgie Serra RN) famotidine (PEPCID) 20 mg in sodium chloride (PF) 0.9 % 10 mL injection (CANCELED) 20 mg, IntraVENous, 2 TIMES DAILY, First dose on Sun04/19/24 at 2100, Until Discontinued, IV Push over minimum of 2 minutes - Dilute with 10 mL NS * 0859 (Given - Provider: Georgie Serra RN) * 2042 (Given - Provider: Marilu Colón RN) * 0841 (Given - Provider: Carol Harman RN) finasteride (PROSCAR) tablet 5 mg 5 mg, Oral, NIGHTLY, First dose on Sun04/22/24 at 2100, Until Discontinued, Women should not handlecrushed or broken finasteride tablets when they are or may potentially be , due topotential risk to the fetus. * 2021 (Given - Provider: Marilu Colón RN) * 2099 (Due) ketotifen fumarate (ZADITOR) 0.035 % ophthalmic solution 1 drop 1 drop, Both Eyes, 2 TIMES DAILY, First dose on Sun04/19/24 at 2099, Until Discontinued, Substituted for Olopatadine (Patanol 0.1%/Pataday 0.2%/Pazeo 0.7%). * 09 (Given - Provider: Georgie Serra RN) * 2042 (Given - Provider: Marilu Colón RN) * 0841 (Given - Provider: Carol Harman RN) * 2026 (Given - Provider: Marilu Colón RN) * 0904 (Given - Provider: Georgie Serra RN) * 2099 (Due) lacosamide (VIMPAT) tablet 150 mg 150 mg, Oral, 2 TIMES DAILY, First dose on Sun04/22/24 at 2100, Until Discontinued * 2021 (Given - Provider: Marilu Colón RN) * 09 (Given - Provider: Georgie Serra RN) * 2099 (Due) lamoTRIgine (LAMICTAL) tablet 400 mg 400 mg, Oral, EVERY MORNING, First dose on Sun04/23/24 at 0900, Until Discontinued * 09 (Given - Provider: Georgie Serra RN) lamoTRIgine (LAMICTAL) tablet 600 mg 600 mg, Oral, Nightly, First dose on Sun04/22/24 at 2100, Until Discontinued * 2020 (Given - Provider: Marilu Colón RN) * 2099 (Due) latanoprost (XALATAN) 0.005 % ophthalmic solution 1 drop 1 drop, Both Eyes, NIGHTLY, First dose on Sun04/19/24 at 2100, Until Discontinued * 2043 (Given - Provider: Marilu Colón RN) * 2026 (Given - Provider: Marilu Colón RN) * 2099 (Due) levETIRAcetam (KEPPRA) tablet 1,500 mg 1,500 mg, Oral, DAILY, First dose on Sun04/22/24 at 1745, Until Discontinued, Do not crush or chew. * 1747 (Given - Provider: Carol Harman RN) * 0903 (Given - Provider: Georgie Serra, ARA) levETIRAcetam (KEPPRA) tablet 2,000 mg 2,000 mg, Oral, NIGHTLY, First dose on Sun04/22/24 at 2100, Until Discontinued, Do not crush or chew. * 2020 (Given - Provider: Marilu Colón RN) * 2099 (Due) linaclotide (LINZESS) capsule 145 mcg (Patient Supplied) 145 mcg, Oral, DAILY BEFORE BREAKFAST, First dose on Sun04/23/24 at 0700, Until Discontinued, Administer at least 30 minutes before breakfast on an empty stomach. Do not break or chew. We do not havethis medication in stock, and there is no direct substitute, or substitute was declined. The medication is marked patient supplied, however if the patient cannot provide their own medication then contact the prescriber for an alternative. * 0905 (Not Given - Provider: Georgie Serra, ARA - Reason: Medication not available) magnesium oxide (MAG-OX) tablet 400 mg 400 mg, Oral, DAILY, First dose on Sun04/22/24 at 1745, Until Discontinued * 1747 (Given - Provider: Carol Harman RN) * 0903 (Given - Provider: Georgie Serra, ARA) meclizine (ANTIVERT) tablet 25 mg 25 mg, Oral, DAILY, First dose on Sun04/22/24 at 1745, Until Discontinued * 1747 (Given - Provider: Carol Harman RN) * 0903 (Given - Provider: Georgie Serra RN) pantoprazole (PROTONIX) injection 40 mg (CANCELED) 40 mg, IntraVENous, DAILY BEFORE BREAKFAST, First dose on Sun04/20/24 at 0700, Until Discontinued, Dilute with 10 mL of 0.9% NaCl. * 0702 (Given - Provider: Georgie Serra RN) * 0655 (Given - Provider: Carol Harman RN) pantoprazole (PROTONIX) tablet 40 mg 40 mg, Oral, DAILY BEFORE BREAKFAST, First dose on Sun04/23/24 at 0700, Until Discontinued, Do not crush or break. * 0903 (Given - Provider: Georgie Serra RN) primidone (MYSOLINE) tablet 250 mg 250 mg, Oral, EVERY MORNING, First dose on Sun04/23/24 at 0900, Until Discontinued * 0903 (Given - Provider: Georgie Serra RN) primidone (MYSOLINE) tablet 375 mg 375 mg, Oral, NIGHTLY, First dose on Sun04/22/24 at 2100, Until Discontinued * 2020 (Given - Provider: Marilu Colón RN) * 2100 (Due) sennosides-docusate sodium (SENOKOT-S) 8.6-50 MG tablet 2 tablet 2 tablet, Oral, DAILY, First dose on Sun04/22/24 at 1745, Until Discontinued * 1747 (Not Given - Provider: Carol Harman RN - Reason: Other - Comment: diarrhea) * 0903 (Given - Provider: Georgie Serra RN) sodium chloride flush 0.9 % injection 10 mL 10 mL, IntraVENous, EVERY 12 HOURS SCHEDULED (2 times per day), First dose on Sun04/19/24 at 2100, Until Discontinued * 0702 (Given - Provider: Georgie Serra RN) * 2043 (Given - Provider: Marilu Colón RN) * 0841 (Given - Provider: Carol Harman RN) * 2019 (Given - Provider: Marilu Colón RN) * 0904 (Given - Provider: Georgie Serra RN) * 2100 (Due) tamsulosin (FLOMAX) capsule 0.4 mg 0.4 mg, Oral, 2 TIMES DAILY, First dose on Sun04/22/24 at 2100, Until Discontinued, Do not crush orbreak. Give 30 minutes after a full meal to limit risk of orthostatic hypotension/falls. * 2020 (Given - Provider: Marilu Colón RN) * 0904 (Given - Provider: Georgie Serra, RN) * 2100 (Due) vitamin B-12 (CYANOCOBALAMIN) tablet 1,000 mcg 1,000 mcg, Oral, DAILY, First dose on Sun04/22/24 at 1745, Until Discontinued * 1748 (Given - Provider: Carol Harman, RN) * 0903 (Given - Provider: Georgie Serra, RN) Vitamin D (CHOLECALCIFEROL) tablet 1,000 Units 1,000 Units, Oral, DAILY, First dose on Sun04/22/24 at 1745, Until Discontinued, Labeling may look different. 25 ryr=6644 Units. Please double check dosages. * 174 (Given - Provider: Carol Harman, RN) * 0904 (Given - Provider: Georgie Serra, RN) Medication Order04/[id number]//[id number]/ 0.9 % sodium chloride infusion () IntraVENous, at 75 mL/hr, CONTINUOUS, Starting on Sun04/19/24 at 1915, For 24 hours, Complete last bag that is running at 24 hours and then saline lock IV * 0031 (Rate/Dose Verify - Provider: Marilu Colón RN) * 0132 (Rate/Dose Verify - Provider: Marilu Colón RN) 0.9 % sodium chloride infusion (CANCELED) IntraVENous, at 75 mL/hr, CONTINUOUS, Starting on Sun04/21/24 at 0000, For 3 days * 0132 (New Bag - Provider: Marilu Colón RN) * 0138 (Rate/Dose Verify - Provider: Marilu Colón RN) * 0210 (Rate/Dose Verify - Provider: Marilu Colón RN) * 0237 (Rate/Dose Verify - Provider: Marilu Colón RN) * 1445 (Stopped - Provider: Marilu Colón RN) * 1452 (New Bag - Provider: Georgie Serra, ARA) * 1452 (Rate/Dose Verify - Provider: Marilu Colón RN) * 1958 (Paused - Provider: Marilu Colón RN) * 2045 (Paused - Provider: Marilu Colón RN) * 2045 (Restarted - Provider: Marilu Colón RN) * 0417 (Rate/Dose Verify - Provider: Marilu Colón RN) * 0427 (Rate/Dose Verify - Provider: Carol Harman RN) * 0517 (Rate/Dose Verify - Provider: Carol Harman, ARA) * 0531 (Rate/Dose Verify - Provider: Carol Harmna RN) * 0531 (Stopped - Provider: Carol Harman RN) * 0533 (Stopped - Provider: Carol Harman RN) * 0533 (New Bag - Provider: Whitney Freed RN) * 0533 (Rate/Dose Verify - Provider: Carol Harman RN) * 0842 (Stopped - Provider: Carol Harman RN) Medication [id number]//[id number]/ 0.9 % sodium chloride infusion IntraVENous, at 5-250 mL/hr, PRN, if patient receiving piggyback infusions and maintenance fluids are not ordered OR KVO fluids to protect IV site / prevent frequent line interruptions/ long duration, Starting on 04/19/24 at 1852, For piggyback infusion, administer at same rate [...] or less into rate field of order. albuterol sulfate HFA (PROVENTIL;VENTOLIN;PROAIR) 108 (90 Base) MCG/ACT inhaler 2 puff 2 puff, Inhalation, EVERY 4 HOURS PRN, Starting on 04/19/24 at 1852, Until Discontinued, Wheezing, Initiate RT Bronchodilator Protocol: Yes - Inpatient Protocol diatrizoate meglumine-sodium (GASTROGRAFIN) 66-10 % solution 120 mL 120 mL, Oral, IMG ONCE PRN, Starting on 04/21/24 at 0919, Until Discontinued, Other, Please contact radiology for appropriate dilution instructions based on the procedure being performed. * 0920 (Given - Provider: Marcella aFn) diazePAM (DIASTAT) rectal gel 20 mg 20 mg, Rectal, PRN, Starting on 04/19/24 at 1852, Until Discontinued, seizure activity>15 minutes hydrOXYzine HCl (ATARAX) tablet 25 mg 25 mg, Oral, EVERY 12 HOURS PRN, Starting on 04/22/24 at 1725, Until Discontinued, Itching LORazepam (ATIVAN) tablet 0.5 mg 0.5 mg, Oral, EVERY 8 HOURS PRN, Starting on 04/22/24 at 1725, Until Discontinued, seizure activity melatonin tablet 3 mg 3 mg, Oral, NIGHTLY PRN, Starting on 04/22/24 at 1725, Until Discontinued, insomnia ondansetron (ZOFRAN) injection 4 mg(Linked Group 1) 4 mg, IntraVENous, EVERY 6 HOURS PRN, Starting on 04/19/24 at 1852, Until Discontinued, Nausea, Vomiting, Administer if oral route cannot be used. ondansetron (ZOFRAN-ODT) disintegrating tablet 4 mg(Linked Group 1) 4 mg, Oral, EVERY 8 HOURS PRN, Starting on 04/19/24 at 1852, Until Discontinued, Nausea, Vomiting sodium chloride flush 0.9 % injection 10 mL 10 mL, IntraVENous, PRN, Starting on 04/19/24 at 1852, Until Discontinued, Line Care, After every IV line use Order Group 1: ondansetron (ZOFRAN-ODT) disintegrating tablet 4 mgJump to med 4 mg, Oral, EVERY 8 HOURS PRN, Starting on 04/19/24 at 1852, Until Discontinued, Nausea, Vomiting Or ondansetron (ZOFRAN) injection 4 mgJump to med 4 mg, IntraVENous, EVERY 6 HOURS PRN, Starting on 04/19/24 at 1852, Until Discontinued, Nausea, Vomiting, Administer if oral route cannot be used. Medication Order/ albuterol (PROVENTIL) (2.5 MG/3ML) 0.083% nebulizer solution 2.5 mg 2.5 mg, Nebulization, 3 TIMES DAILY RESP, First dose on Vilma 06/19/24 at 1400, Until Discontinued, Initiate RT Bronchodilator Protocol: Yes - Inpatient Protocol * 1659 (Not Given - Provider: Veronica Zavala RCP - Reason: Other - Comment: pt discharged) * 1999 (Due) albuterol sulfate HFA (PROVENTIL;VENTOLIN;PROAIR) 108 (90 Base) MCG/ACT inhaler 2 puff (CANCELED) 2 puff, Inhalation, 3 TIMES DAILY RESP, First dose on Sun06/16/24 at 2000, Until Discontinued, Initiate RT Bronchodilator Protocol: Yes - Inpatient Protocol * 0806 (Given - Provider: Melany Dorman RCP) * 1515 (Given - Provider: Melany Dorman RCP) * 2018 (Given - Provider: Camila Campbell BINDER OPERATOR) * 111 (Given - Provider: Melany Rios BINDER OPERATOR) * 155 (Given - Provider: Melany Rios RCP) * 2003 (Given - Provider: Camila Campbell RCP) * 07 (Given - Provider: Veronica Zavala BINDER OPERATOR) enoxaparin (LOVENOX) injection 40 mg 40 mg, SubCUTAneous, DAILY, First dose on Sun06/16/24 at 1615, Until Discontinued, Indication of Use: Prophylaxis-DVT/PE * 0913 (Given - Provider: Carol Harman RN) * 0902 (Given - Provider: Carol Harman RN) * 1021 (Given - Provider: Marilu Mota, ARA) famotidine (PEPCID) 20 MG/2ML 20 mg in sodium chloride (PF) 0.9 % 10 mL injection (CANCELED) 20 mg, IntraVENous, 2 TIMES DAILY, First dose on Sun06/16/24 at 2100, Until Discontinued, IV Push over minimum of 2 minutes - Dilute with 10 mL NS * 0913 (Given - Provider: Carol Harman RN) * 2152 (Given - Provider: AUSTIN Hernández) * 0901 (Given - Provider: Carol Harman RN) * 2146 (Given - Provider: AUSTIN Hernández) * 1024 (Not Given - Provider: Marilu Mota RN - Reason: Other - Comment: discontinued per [employer]RAFTSMAN) ketotifen fumarate (ZADITOR) 0.035 % ophthalmic solution 1 drop 1 drop, Both Eyes, DAILY, First dose on Sun06/19/24 at 0930, Until Discontinued, Substituted for Olopatadine (Patanol 0.1%/Pataday 0.2%/Pazeo 0.7%). * 1021 (Given - Provider: Marilu Mota RN) * 2200 (Due) lacosamide (VIMPAT) injection 150 mg (CANCELED) 150 mg, IntraVENous, 2 TIMES DAILY, First dose on Sun06/17/24 at 1100, Until Discontinued, Doses upto 400 mg may be administered undiluted at less than or equal to 80 mg/minute (eg, 400 mg over 5 minutes) * 1446 (Given - Provider: Carol Harman RN - Comment: Loss of IV access) * 2152 (Given - Provider: AUSTIN Hernández) * 0901 (Given - Provider: Carol Harman RN) * 2149 (Given - Provider: AUSTIN Hernández) * 1024 (Not Given - Provider: Marilu Mota RN - Reason: Other - Comment: discontinued per [employer]ODUCTION [employer] CRAFTSMAN) lacosamide (VIMPAT) tablet 150 mg 150 mg, Oral, 2 TIMES DAILY, First dose on Sun06/19/24 at 0930, Until Discontinued * 1011 (Given - Provider: Marilu Mota RN) * 2100 (Due) lamoTRIgine (LAMICTAL) tablet 400 mg 400 mg, Oral, EVERY MORNING, First dose on Sun06/19/24 at 0930, Until Discontinued, Immediate release: [employer] labeling recommends that tablets should be swallowed whole, not chewed or crushed; however, some studies support crushing and mixing with applesauce (Note: Levetiracetam has a bitter taste) * 1012 (Given - Provider: Marilu Mota RN) lamoTRIgine (LAMICTAL) tablet 600 mg 600 mg, Oral, Nightly, First dose on Sun06/19/24 at 2100, Until Discontinued, Immediate release: [employer] labeling recommends that tablets should be swallowed whole, not chewed or crushed; however, some studies support crushing and mixing with applesauce (Note: Levetiracetam has a bitter taste) * 2100 (Due) levETIRAcetam (KEPPRA) 1000 mg/100 mL IVPB (CANCELED) 1,000 mg, IntraVENous, EVERY 12 HOURS, First dose on Sun06/16/24 at 1615, Until Discontinued * 0414 (New Bag - Provider: Alesha Galicia RN) * 0429 (Stopped - Provider: Alesha Galicia RN) levETIRAcetam (KEPPRA) 1500 mg/100 mL IVPB (CANCELED) 1,500 mg, IntraVENous, DAILY, First dose (after last modification) on Sun06/18/24 at 0900, Until Discontinued * 0908 (New Bag - Provider: Carol Harman RN) * 0923 (Stopped - Provider: Carol Harman RN) * 1024 (Not Given - Provider: Marilu Mota RN - Reason: Other - Comment: discontinued per [employer] CRAFTSMAN) levETIRAcetam (KEPPRA) 2,000 mg in sodium chloride 0.9 % 250 mL IVPB (CANCELED) 2,000 mg, IntraVENous, NIGHTLY, First dose on Sun06/17/24 at 2100, Until Discontinued * 2204 (New Bag - Provider: AUSTIN Hernández) * 2224 (Stopped - Provider: AUSTIN Hernández) * 2149 (New Bag - Provider: AUSTIN Hernández) * 2219 (Stopped - Provider: AUSTIN Hernández) levETIRAcetam (KEPPRA) tablet 1,500 mg 1,500 mg, Oral, DAILY, First dose on Sun06/19/24 at 0930, Until Discontinued, Do not crush or chew. * 1013 (Given - Provider: Marilu Mota RN - Comment: verfied ok to crush per [facility] Pharmacist) levETIRAcetam (KEPPRA) tablet 2,000 mg 2,000 mg, Oral, NIGHTLY, First dose on Sun06/19/24 at 2100, Until Discontinued, Do not crush or chew. * 2100 (Due) lidocaine 1 % injection 50 mg 50 mg, IntraDERmal, ONCE, 1 dose, On Sun06/17/24 at 1500 * 1500 (Due) linaclotide (LINZESS) capsule 145 mcg (Patient Supplied) 145 mcg, Oral, DAILY BEFORE BREAKFAST, First dose on Sun06/20/24 at 0700, Until Discontinued, Administer at least 30 minutes before breakfast on an empty stomach. Do not break or chew. magnesium oxide (MAG-OX) tablet 400 mg 400 mg, Oral, DAILY, First dose on Sun06/19/24 at 0930, Until Discontinued * 1012 (Given - Provider: Marilu Mota RN) meclizine (ANTIVERT) tablet 25 mg 25 mg, Oral, DAILY, First dose on Sun06/19/24 at 0930, Until Discontinued * 1013 (Given - Provider: Marilu Mota, ARA) pantoprazole (PROTONIX) tablet 40 mg 40 mg, Oral, DAILY BEFORE BREAKFAST, First dose on Sun06/20/24 at 0700, Until Discontinued, Do not crush or break. primidone (MYSOLINE) tablet 250 mg 250 mg, Oral, EVERY MORNING, First dose on Sun06/19/24 at 0930, Until Discontinued * 1013 (Given - Provider: Marilu Mota RN) sennosides-docusate sodium (SENOKOT-S) 8.6-50 MG tablet 2 tablet 2 tablet, Oral, DAILY WITH DINNER, First dose on Sun06/19/24 at 1730, Until Discontinued * 1730 (Due) sodium chloride flush 0.9 % injection 10 mL 10 mL, IntraVENous, EVERY 12 HOURS SCHEDULED (2 times per day), First dose on Sun06/16/24 at 2100, Until Discontinued * 0836 (Not Given - Provider: Carol Harman RN - Reason: IV Fluid Infusing) * 2153 (Given - Provider: AUSTIN Hernández) * 0850 (Not Given - Provider: Carol Harman RN - Reason: Patient/family refused) * 2200 (Given - Provider: AUSTIN Hernández) * 1021 (Given - Provider: Marilu Mota RN) * 2100 (Due) sodium chloride flush 0.9 % injection 5-40 mL 5-40 mL, IntraVENous, EVERY 12 HOURS SCHEDULED (2 times per day), First dose on Sun06/17/24 at 2100, Until Discontinued, For Line Patency: Peripheral IV = 5 mL; Midline or Central Line = 10 mL/lumen.If following IV push medication, administer flush at same rate as the IV push. Flush volume is determined by type of infusion therapy being given. For non-viscous solutions use: Peripheral IV = 5 mL Midline or Central Line = 10 mL/lumen For viscous solutions (i.e. blood components, parenteral nutrition, contrast media, or after obtaining blood sample) use: Peripheral IV = 10 mL Midline or CentralLine = 20 mL/lumen * 2334 (Not Given - Provider: AUSTIN Hernández - Reason: IV Fluid Infusing) * 0850 (Not Given - Provider: Carol Harman RN - Reason: IV Fluid Infusing) * 2200 (Not Given - Provider: AUSTIN Hernández - Reason: Other - Comment: duplicate) * 1025 (Not Given - Provider: Marilu Mota RN - Reason: Other - Comment: duplicate order) * 2100 (Due) tamsulosin (FLOMAX) capsule 0.4 mg 0.4 mg, Oral, 2 TIMES DAILY, First dose on Sun06/19/24 at 0930, Until Discontinued, Do not crush orbreak. Give 30 minutes after a full meal to limit risk of orthostatic hypotension/falls. * 1015 (Given - Provider: Marilu Mota RN - Comment: verfied ok to open tablet and sprinkle on applesauce per [facility] Pharmacist) * 2100 (Due) vitamin B-12 (CYANOCOBALAMIN) tablet 1,000 mcg 1,000 mcg, Oral, DAILY, First dose on Sun06/19/24 at 0930, Until Discontinued * 1012 (Given - Provider: Marilu Mota RN) Vitamin D (CHOLECALCIFEROL) tablet 1,000 Units 1,000 Units, Oral, DAILY, First dose on Sun06/19/24 at 0930, Until Discontinued, Labeling may look different. 25 pgt=4964 Units. Please double check dosages. * 1013 (Given - Provider: Marilu Mota RN) Medication Order// 0.9 % sodium chloride infusion () IntraVENous, at 75 mL/hr, CONTINUOUS, Starting on Sun06/16/24 at 1615, For 24 hours, Complete last bag that is running at 24 hours and then saline lock IV * 0653 (New Bag - Provider: Carol Harman RN) * 0654 (Rate/Dose Verify - Provider: Carol Harman RN) * 0835 (Rate/Dose Verify - Provider: Carol Harman RN) * 1451 (Restarted - Provider: Carol Harman RN) * 2150 (Stopped - Provider: AUSTIN Hernández) 0.9 % sodium chloride infusion () IntraVENous, at 75 mL/hr, CONTINUOUS, Starting on Sun06/17/24 at 2330, For 24 hours, Complete last bag that is running at 24 hours and then saline lock IV * 2321 (Restarted - Provider: AUSTIN Hernández) * 0348 (New Bag - Provider: AUSTIN Hernández) * 0351 (Rate/Dose Verify - Provider: Carol Harman RN) * 0505 (Rate/Dose Verify - Provider: Carol Harman RN) * 0923 (Rate/Dose Verify - Provider: Carol Harman RN) * 0938 (Rate/Dose Verify - Provider: Carol Harman RN) * 1531 (Rate/Dose Verify - Provider: Carol Harman RN) * 1706 (New Bag - Provider: Carol Harman RN) * 0418 (Stopped - Provider: AUSTIN Hernández) Medication [id number]//[id number]/ 0.9 % sodium chloride infusion IntraVENous, at 5-250 mL/hr, PRN, if patient receiving piggyback infusions and maintenance fluids are not ordered OR KVO fluids to protect IV site / prevent frequent line interruptions/ long duration, Starting on Sun06/17/24 at 1434, For piggyback infusion, administer at same rate [...] or less into rate field of order. albuterol sulfate HFA (PROVENTIL;VENTOLIN;PROAIR) 108 (90 Base) MCG/ACT inhaler 2 puff 2 puff, Inhalation, EVERY 4 HOURS PRN, Starting on Sun06/16/24 at 1548, Until Discontinued, Wheezing, Initiate RT Bronchodilator Protocol: Yes - Inpatient Protocol * 0511 (Given - Provider: Camila Campbell RCP) LORazepam (ATIVAN) injection 0.5 mg 0.5 mg, IntraVENous, EVERY 6 HOURS PRN, Starting on Sun06/16/24 at 1548, Until Discontinued, Anxiety, Agitation, Immediately prior to intravenous use, lorazepam Injection must be diluted with at least an equal volume of compatible solution (NS or D5W). ondansetron (ZOFRAN) injection 4 mg(Linked Group 1) 4 mg, IntraVENous, EVERY 6 HOURS PRN, Starting on Sun06/16/24 at 1548, Until Discontinued, Nausea, Vomiting, Administer if oral route cannot be used. ondansetron (ZOFRAN-ODT) disintegrating tablet 4 mg(Linked Group 1) 4 mg, Oral, EVERY 8 HOURS PRN, Starting on Sun06/16/24 at 1548, Until Discontinued, Nausea, Vomiting polyethylene glycol (GLYCOLAX) packet 17 g 17 g, Oral, DAILY PRN, Starting on Sun06/16/24 at 1548, Until Discontinued, Constipation, First line therapy for constipation, On hold since Sun06/16/2024 at 1838 until manually unheld potassium bicarb-citric acid (EFFER-K) effervescent tablet 40 mEq(Linked Group 2) 40 mEq, Oral, PRN, Starting on Sun06/16/24 at 1548, Until Discontinued, Per Potassium Replacement Protocol, Administer [...] 2) 40 mEq, Oral, PRN, Starting on Sun06/16/24 at 1548, Until Discontinued, Potassium Replacement, May give alternative linked oral order (ordered as effervescent, packet, or liquid solution) if patient unable to tolerate tablet. K Lab Replacement Action 3.1 to 3.5 40 mEq ORAL x 1 Under 3.1 Refer to IV replacement protocol Recheck K level in AM. Protocol not for use in patients with CrCl less than 30mL/min. Do not crush, chew, or suck on tablet. Tablet may also be broken in half and each half swallowed separately. potassium chloride 10 mEq/100 mL IVPB (Peripheral Line)(Linked Group 2) 10 mEq, IntraVENous, PRN, Starting on Sun06/16/24 at 1548, Until Discontinued, at 100 mL/hr, Potassium Replacement, [...] mL/min. sodium chloride flush 0.9 % injection 10 mL 10 mL, IntraVENous, PRN, Starting on Sun06/16/24 at 1548, Until Discontinued, Line Care, After every IV line use sodium chloride flush 0.9 % injection 5-40 mL 5-40 mL, IntraVENous, PRN, Starting on Sun06/17/24 at 1434, Until Discontinued, Line Care, After every IV [...] For viscous solutions (i.e. blood components, parenteral nutrition,contrast media, or after obtaining blood sample) use: Peripheral IV = 10 mL Midline or Central Line= 20 mL/lumen Order Group 1: ondansetron (ZOFRAN-ODT) disintegrating tablet 4 mgJump to med 4 mg, Oral, EVERY 8 HOURS PRN, Starting on Sun06/16/24 at 1548, Until Discontinued, Nausea, Vomiting Or ondansetron (ZOFRAN) injection 4 mgJump to med 4 mg, IntraVENous, EVERY 6 HOURS PRN, Starting on Sun06/16/24 at 1548, Until Discontinued, Nausea, Vomiting, Administer if oral route cannot be used. Group 2: potassium chloride (KLOR-CON M) extended release tablet 40 mEqJump to med 40 mEq, Oral, PRN, Starting on Sun06/16/24 at 1548, Until Discontinued, Potassium Replacement, May give alternative linked oral order (ordered as effervescent, packet, or liquid solution) if patient unable to tolerate tablet. K Lab Replacement Action 3.1 to 3.5 40 mEq ORAL x 1 Under 3.1 Refer to IV replacement protocol Recheck K level in AM. Protocol not for use in patients with CrCl less than 30mL/min. Do not crush, chew, or suck on tablet. Tablet may also be broken in half and each half swallowed separately. Or potassium bicarb-citric acid (EFFER-K) effervescent tablet 40 mEqJump to med 40 mEq, Oral, PRN, Starting on Sun06/16/24 at 1548, Until Discontinued, Per Potassium Replacement Protocol, Administer [...] med 10 mEq, IntraVENous, PRN, Starting on Sun06/16/24 at 1548, Until Discontinued, at 100 mL/hr, Potassium Replacement, K Lab Replacement Action 2.7 to 3.0 10 mEq IVPB x 6 doses (60 mEq Total) Under 2.7 CALL PROVIDER and administer 10 mEq IVPB x 6 doses (60 mEq Total) Infuse at 10 mEq/hr. Repeat Potassium lab 1 hour after final administration. Protocol not for use in patients with CrCl less than 30 mL/min. Medication Order// calcium carbonate (TUMS) chewable tablet 500 mg 500 mg (1 tablet), Oral, 2 TIMES DAILY, First dose on Sun07/14/24 at 1400, Until Discontinued * 1443 (Not Given - Provider: Gavi Vuong RN - Reason: Other) * 2203 (Not Given - Provider: Lanie Leonardo RN - Reason: Pt NPO) * 0954 (Given - Provider: Lupe Ford RN) * 2021 (Given - Provider: Sinai Chino, ARA) * 09 (Given - Provider: Marilu Mota RN) * 2100 (Due) carbamide peroxide (DEBROX) 6.5 % otic solution 4 drop 4 drop, Both Ears, EVERY 30 DAYS, First dose on Sun07/14/24 at 1400, Until Discontinued * 1443 (Not Given - Provider: Gavi Vuong RN - Reason: Other) cefTRIAXone (ROCEPHIN) 2,000 mg in sterile water 20 mL IV syringe (COMPLETED) 2,000 mg, IntraVENous, ONCE, On Sun07/14/24 at 0930, For 1 dose, Administer as slow IV Push over 5 mins Reconstitute 2 g vials with 19.2 mL of designated diluent to produce a 100mg/mL solution * 0938 (Given - Provider: Niurka García RN) ciprofloxacin (CIPRO) IVPB 400 mg (CANCELED) 400 mg, IntraVENous, EVERY 12 HOURS, First dose on Sun07/14/24 at 1400, Until Discontinued, Antimicrobial Indications: Intra-Abdominal Infection * 1510 (New Bag - Provider: Gavi Vuong RN - Comment: new order) * 1610 (Stopped - Provider: Gavi Vuong RN) * 0235 (New Bag - Provider: Lanie Leonardo RN) * 0455 (Stopped - Provider: Lanie Leonardo RN) * 1446 (New Bag - Provider: Lupe Ford, ARA) * 1622 (Stopped - Provider: Lupe Ford, ARA) * 0213 (New Bag - Provider: Sinai Chino, ARA) * 0313 (Stopped - Provider: Sinai Chino RN) ciprofloxacin (CIPRO) tablet 500 mg 500 mg, Oral, 2 times daily, 14 doses, First dose on Sun07/16/24 at 1000, Last dose on Sun07/22/24 at 1900, Antimicrobial Indications: Urinary Tract Infection, UTI duration of therapy: 7 days, Do nottake with dairy products or calcium- fortified juices. Tube feeding (TF) interaction, obtain physician order to manage. Recommend holding TF for 1 hr before and 1 hr after dose. Due to decreased absorption do not give by J tube. * 1039 (Given - Provider: Marilu Mota RN) * 1900 (Due) finasteride (PROSCAR) tablet 5 mg 5 mg, Oral, NIGHTLY, First dose on Sun07/14/24 at 2100, Until Discontinued, Women should not handlecrushed or broken finasteride tablets when they are or may potentially be , due topotential risk to the fetus. * 2203 (Not Given - Provider: Lanie Leonardo RN - Reason: Pt NPO) * 2021 (Given - Provider: Sinai Chino RN) * 2099 (Due) ketotifen fumarate (ZADITOR) 0.035 % ophthalmic solution 1 drop 1 drop, Both Eyes, 2 TIMES DAILY, First dose on Sun07/14/24 at 1400, Until Discontinued, Substituted for Olopatadine (Patanol 0.1%/Pataday 0.2%/Pazeo 0.7%). * 1500 (Given - Provider: Gavi Vuong RN) * 2203 (Given - Provider: Lanie Leonardo RN) * 0959 (Given - Provider: Lupe Ford, ARA) * 2026 (Given - Provider: Sinai Chino, ARA) * 1040 (Given - Provider: Marilu Mota RN) * 2100 (Due) lacosamide (VIMPAT) tablet 150 mg 150 mg, Oral, 2 TIMES DAILY, First dose on Sun07/14/24 at 1400, Until Discontinued * 1506 (Not Given - Provider: Gavi Vuong RN - Reason: Other - Comment: will get dose this evening) * 215 (Given - Provider: Lanie Leonardo RN) * 0954 (Given - Provider: Lupe Ford, ARA) * 2021 (Given - Provider: Sinai Chino RN) * 0910 (Given - Provider: Marilu Mota RN) * 2100 (Due) lamoTRIgine (LAMICTAL) tablet 400 mg 400 mg, Oral, EVERY MORNING, First dose on Sun07/14/24 at 1400, Until Discontinued * 1459 (Given - Provider: Gavi Vuong RN - Comment: new admit to floor, did not have am meds today) * 0954 (Given - Provider: Lupe Ford, ARA) * 0911 (Given - Provider: Marilu Mota, ARA) lamoTRIgine (LAMICTAL) tablet 600 mg 600 mg, Oral, Nightly, First dose on Sun07/14/24 at 2100, Until Discontinued * 2156 (Given - Provider: Lanie Leonardo RN) * 2020 (Given - Provider: Sinai Chino RN) * 2099 (Due) latanoprost (XALATAN) 0.005 % ophthalmic solution 1 drop 1 drop, Both Eyes, NIGHTLY, First dose on Sun07/14/24 at 2100, Until Discontinued * 2204 (Given - Provider: Lanie Leonardo RN) * 2026 (Given - Provider: Sinai Chino RN) * 2099 (Due) levETIRAcetam (KEPPRA) tablet 1,500 mg 1,500 mg, Oral, DAILY, First dose on Sun07/14/24 at 1400, Until Discontinued, Do not crush or chew. * 1500 (Given - Provider: Gavi Vuong RN) * 0954 (Given - Provider: Lupe Ford RN) * 0911 (Given - Provider: Marilu Mota, ARA) levETIRAcetam (KEPPRA) tablet 2,000 mg 2,000 mg, Oral, NIGHTLY, First dose on Sun07/14/24 at 2100, Until Discontinued, Do not crush or chew. * 2156 (Given - Provider: Lanie Leonardo RN) * 2021 (Given - Provider: Sinai Chino RN) * 2099 (Due) linaclotide (LINZESS) capsule 145 mcg (Patient Supplied) 145 mcg, Oral, DAILY BEFORE BREAKFAST, First dose on Sun07/15/24 at 0700, Until Discontinued, We donot have this medication in stock, and there is no direct substitute, or substitute was declined. The medication is marked patient supplied, however if the patient cannot provide their own medicationthen contact the prescriber for an alternative. Administer at least 30 minutes before breakfast on an empty stomach. Do not break or chew. * 1016 (Not Given - Provider: Lupe Ford RN - Reason: Medication not available) * 0927 (Not Given - Provider: Marilu Mota RN - Reason: Medication not available) magnesium oxide (MAG-OX) tablet 400 mg 400 mg, Oral, DAILY, First dose on Sun07/14/24 at 1400, Until Discontinued * 1445 (Not Given - Provider: Gavi Vuogn RN - Reason: Pt NPO) * 0954 (Given - Provider: Lupe Ford RN) * 0911 (Given - Provider: Marilu Mota RN) meclizine (ANTIVERT) tablet 25 mg 25 mg, Oral, DAILY, First dose on Sun07/14/24 at 1400, Until Discontinued * 1459 (Given - Provider: Gavi Vuong RN) * 0953 (Given - Provider: Lupe Ford RN) * 0910 (Given - Provider: Marilu Mota RN) metroNIDAZOLE (FLAGYL) 500 mg in 0.9% NaCl 100 mL IVPB premix (COMPLETED) 500 mg, IntraVENous, ONCE, 1 dose, On Sun07/14/24 at 1000, Antimicrobial Indications: Intra-Abdominal Infection * 1038 (New Bag - Provider: Reva Douglas RN) * 1200 (Stopped - Provider: Reva Douglas RN) metroNIDAZOLE (FLAGYL) 500 mg in 0.9% NaCl 100 mL IVPB premix (CANCELED) 500 mg, IntraVENous, EVERY 8 HOURS, First dose on Sun07/14/24 at 1830, Until Discontinued, Antimicrobial Indications: Intra-Abdominal Infection * 1741 (New Bag - Provider: Gavi Vuong RN) * 1906 (Stopped - Provider: Lanie Leonardo, AAR) * 0236 (New Bag - Provider: Lanie Leonardo RN) * 0455 (Stopped - Provider: Lanie Leonardo RN) * 1001 (New Bag - Provider: Lupe Ford, ARA) * 1114 (Stopped - Provider: Lupe Ford RN) * 1747 (New Bag - Provider: Lupe Ford RN) * 1854 (Stopped - Provider: Marcella Desai RN) * 0214 (New Bag - Provider: Sinai Chino RN) * 0314 (Stopped - Provider: Sinai Chino RN) metroNIDAZOLE (FLAGYL) tablet 500 mg 500 mg, Oral, EVERY 8 HOURS SCHEDULED (3 times per day), 21 doses, First dose on Sun07/16/24 at 0845, Last dose on Sun07/22/24 at 2200, Antimicrobial Indications: Intra-Abdominal Infection * 1039 (Given - Provider: Marilu Mota RN) * 1549 (Given - Provider: Marilu Mota RN) * 220 (Due) pantoprazole (PROTONIX) tablet 40 mg 40 mg, Oral, DAILY BEFORE BREAKFAST, First dose on Sun07/15/24 at 0700, Until Discontinued, Do not crush or break. * 0954 (Given - Provider: Lupe Ford RN) * 0914 (Given - Provider: Marilu Mota RN) primidone (MYSOLINE) tablet 250 mg 250 mg, Oral, EVERY MORNING, First dose on Sun07/14/24 at 1400, Until Discontinued * 1500 (Given - Provider: Gavi Vuong, ARA) * 0954 (Given - Provider: Lupe Ford RN) * 0912 (Given - Provider: Marilu Mota RN) primidone (MYSOLINE) tablet 375 mg 375 mg, Oral, NIGHTLY, First dose on Sun07/14/24 at 2100, Until Discontinued * 2203 (Not Given - Provider: Lanie Leonardo RN - Reason: Pt NPO) * 2020 (Given - Provider: Sinai Chino RN) * 2100 (Due) sennosides-docusate sodium (SENOKOT-S) 8.6-50 MG tablet 2 tablet 2 tablet, Oral, DAILY WITH DINNER, First dose on Sun07/14/24 at 1730, Until Discontinued * 1729 (Held - Provider: Gavi Vuong RN - Reason: Contraindicated - Comment: pt having diarrhea) * 174 (Given - Provider: Lupe Ford RN) * 1549 (Given - Provider: Marilu Mota RN) sodium chloride 0.9 % bolus 1,000 mL (COMPLETED) 1,000 mL, IntraVENous, at 2,000 mL/hr, Administer over 30 Minutes, ONCE, On Sun07/14/24 at 0745, For 1 dose * 0747 (New Bag - Provider: Henry Brewer RN) * 0957 (Stopped - Provider: Henry Brewer RN) sodium chloride flush 0.9 % injection 5-40 mL 5-40 mL, IntraVENous, EVERY 12 HOURS SCHEDULED (2 times per day), First dose on Sun07/14/24 at 2100, Until Discontinued, For Line Patency: Peripheral IV = 5 mL; Midline or Central Line = 10 mL/lumen.If following IV push medication, administer flush at same rate as the IV push. Flush volume is determined by type of infusion therapy being given. For non-viscous solutions use: Peripheral IV = 5 mL Midline or Central Line = 10 mL/lumen For viscous solutions (i.e. blood components, parenteral nutrition, contrast media, or after obtaining blood sample) use: Peripheral IV = 10 mL Midline or CentralLine = 20 mL/lumen * 220 (Not Given - Provider: Lanie Leonardo RN - Reason: IV Fluid Infusing) * 1000 (Not Given - Provider: Lupe Ford RN - Reason: IV Fluid Infusing) * 2022 (Not Given - Provider: Sinai Chino RN - Reason: IV Fluid Infusing) * 0900 (Not Given - Provider: Marilu Mota RN - Reason: IV Fluid Infusing) * 2100 (Due) tamsulosin (FLOMAX) capsule 0.4 mg 0.4 mg, Oral, 2 TIMES DAILY, First dose on Sun07/14/24 at 1400, Until Discontinued, Do not crush orbreak. Give 30 minutes after a full meal to limit risk of orthostatic hypotension/falls. * 1506 (Not Given - Provider: Gavi Vuong RN - Reason: Other - Comment: will get another dose at bedtime) * 2205 (Not Given - Provider: Lanie Leonardo RN - Reason: Pt NPO) * 0954 (Given - Provider: Lupe Ford RN) * 2021 (Given - Provider: Sinai Chino RN) * 0912 (Given - Provider: Marilu Mota RN) * 2100 (Due) vitamin B-12 (CYANOCOBALAMIN) tablet 1,000 mcg 1,000 mcg, Oral, DAILY, First dose on Sun07/14/24 at 1400, Until Discontinued * 1444 (Not Given - Provider: Gavi Vuong RN - Reason: Pt NPO) * 0954 (Given - Provider: Lupe Ford, RN) * 0911 (Given - Provider: Marilu Mota, ARA) Vitamin D (CHOLECALCIFEROL) tablet 1,000 Units 1,000 Units, Oral, DAILY, First dose on Sun07/14/24 at 1400, Until Discontinued, Labeling may look different. 25 [id number] Units. Please double check dosages. * 1444 (Not Given - Provider: Gavi Vuong RN - Reason: Pt NPO) * 0954 (Given - Provider: Lupe Ford, ARA) * 0912 (Given - Provider: Marilu Mota RN) Medication Order/// 0.9 % sodium chloride infusion (CANCELED) IntraVENous, at 125 mL/hr, CONTINUOUS, Starting on Sun07/14/24 at 1400 * 1345 (New Bag - Provider: Gavi Vuong RN) * 2344 (New Bag - Provider: Lanie Leonardo, ARA) * 0822 (New Bag - Provider: Georgie Serra, ARA) * 1643 (New Bag - Provider: Georgie Serra, RN) * 0031 (New Bag - Provider: Sinai Chino RN) * 0909 (Stopped - Provider: Marilu Mota, ARA) Medication Order/// 0.9 % sodium chloride infusion IntraVENous, at 100 mL/hr, PRN, If patient receiving piggyback infusions without ordered maintenance IV fluids or with frequent/long duration piggyback infusions, Starting on Sun07/14/24 at 1339, Administer at the same rate as the piggyback being infused. acetaminophen (TYLENOL) tablet 500 mg 500 mg, Oral, EVERY 6 HOURS PRN, Starting on Sun07/14/24 at 1339, Until Discontinued, Fever, Pain Moderate (4-6), allowed for higher pain score per patient request, Pain Mild (1-3), allowed for higher pain score per patient request, Maximum dose of acetaminophen is 4000 mg from all sources in 24 hours. albuterol sulfate HFA (PROVENTIL;VENTOLIN;PROAIR) 108 (90 Base) MCG/ACT inhaler 2 puff 2 puff, Inhalation, EVERY 4 HOURS PRN, Starting on Sun07/14/24 at 1339, Until Discontinued, Wheezing, Initiate RT Bronchodilator Protocol: Yes - Inpatient Protocol benzonatate (TESSALON) capsule 100 mg 100 mg, Oral, EVERY 8 HOURS PRN, Starting on Sun07/14/24 at 1339, Until Discontinued, Cough diazePAM (DIASTAT) rectal gel 20 mg 20 mg, Rectal, PRN, Starting on Sun07/14/24 at 1339, Until Discontinued, seizure activity>15 minutes hydrOXYzine HCl (ATARAX) tablet 25 mg 25 mg, Oral, EVERY 12 HOURS PRN, Starting on Sun07/14/24 at 1339, Until Discontinued, Itching iopamidol (ISOVUE-370) 76 % injection 75 mL (COMPLETED) 75 mL, IntraVENous, IMG ONCE PRN, 1 dose, Starting on Sun07/14/24 at 0832, Until Sun07/14/24 at 0832, Other * 0832 (Given - Provider: Andreas Cross) LORazepam (ATIVAN) tablet 0.5 mg 0.5 mg, Oral, EVERY 8 HOURS PRN, Starting on Sun07/14/24 at 1339, Until Discontinued, Anxiety melatonin tablet 3 mg 3 mg, Oral, NIGHTLY PRN, Starting on Sun07/14/24 at 1339, Until Discontinued, insomnia ondansetron (ZOFRAN) injection 4 mg(Linked Group 1) 4 mg, IntraVENous, EVERY 6 HOURS PRN, Starting on Sun07/14/24 at 1339, Until Discontinued, Nausea, Vomiting, Administer if oral route cannot be used. ondansetron (ZOFRAN-ODT) disintegrating tablet 4 mg(Linked Group 1) 4 mg, Oral, EVERY 8 HOURS PRN, Starting on Sun07/14/24 at 1339, Until Discontinued, Nausea, Vomiting polyethylene glycol (GLYCOLAX) packet 17 g 17 g, Oral, DAILY PRN, Starting on Sun07/14/24 at 1351, Until Discontinued, Constipation, Stir and dissolve one packet of powder (17 g) in any 4 to 8 ounces of beverage (cold, hot or room temperature) then drink sodium chloride flush 0.9 % injection 5-40 mL 5-40 mL, IntraVENous, PRN, Starting on Sun07/14/24 at 1339, Until Discontinued, Line Care, After every IV [...] For viscous solutions (i.e. blood components, parenteral nutrition,contrast media, or after obtaining blood sample) use: Peripheral IV = 10 mL Midline or Central Line= 20 mL/lumen Order Group 1: ondansetron (ZOFRAN-ODT) disintegrating tablet 4 mgJump to med 4 mg, Oral, EVERY 8 HOURS PRN, Starting on Sun07/14/24 at 1339, Until Discontinued, Nausea, Vomiting Or ondansetron (ZOFRAN) injection 4 mgJump to med 4 mg, IntraVENous, EVERY 6 HOURS PRN, Starting on Sun07/14/24 at 1339, Until Discontinued, Nausea, Vomiting, Administer if oral route cannot be used. Medication Order08/19/// enoxaparin (LOVENOX) injection 40 mg 40 mg, SubCUTAneous, DAILY, First dose on Sun08/19/24 at 0900, Until Discontinued, Indication of Use: Prophylaxis-DVT/PE * 0809 (Given - Provider: AUSTIN Patel) * 0958 (Given - Provider: Meera Goodson RN) * 0856 (Given - Provider: Meera Goodson RN) famotidine (PEPCID) 20 MG/2ML 20 mg in sodium chloride (PF) 0.9 % 10 mL injection 20 mg, IntraVENous, 2 TIMES DAILY, First dose on Sun08/18/24 at 2230, Until Discontinued, IV Push over minimum of 2 minutes - Dilute with 10 mL NS * 0810 (Given - Provider: AUSTIN Patel) * 2038 (Given - Provider: Anais Addison RN) * 0958 (Given - Provider: Meera Goodson, ARA) * 2046 (Given - Provider: Tirso Bedolla, ARA) * 0856 (Given - Provider: Meera Goodson RN) * 2100 (Due) lacosamide (VIMPAT) injection 150 mg 150 mg, IntraVENous, 2 TIMES DAILY, First dose on Sun08/19/24 at 0945, Until Discontinued, Doses upto 400 mg may be administered undiluted at less than or equal to 80 mg/minute (eg, 400 mg over 5 minutes) * 0959 (Given - Provider: AUSTIN Patel) * 2035 (Given - Provider: Anais Addison RN) * 0958 (Given - Provider: Meera Goodson RN) * 2046 (Given - Provider: Tirso Bedolla RN) * 0856 (Given - Provider: Meera Goodson RN) * 2100 (Due) levETIRAcetam (KEPPRA) 1500 mg/100 mL IVPB 1,500 mg, IntraVENous, 2 TIMES DAILY, First dose on Sun08/19/24 at 0945, Until Discontinued * 1007 (New Bag - Provider: AUSTIN Patel) * 1023 (Stopped - Provider: AUSTIN Patel) * 1030 (Stopped - Provider: Lupe Ford RN) * 2039 (New Bag - Provider: Anais Addison RN) * 205 (Stopped - Provider: Anais Addison RN) * 1005 (New Bag - Provider: Meera Goodson RN) * 1023 (Stopped - Provider: Meera Goodson RN) * 204 (New Bag - Provider: Tirso Bedolla RN) * 210 (Stopped - Provider: Tirso Bedolla RN) * 0907 (New Bag - Provider: Meera Goodson RN) * 0937 (Stopped - Provider: Meera Goodson RN) * 2100 (Due) lidocaine 1 % injection 50 mg 50 mg, IntraDERmal, ONCE, 1 dose, On Sun08/19/24 at 1245 * 1245 (Due) sodium chloride flush 0.9 % injection 10 mL 10 mL, IntraVENous, EVERY 12 HOURS SCHEDULED (2 times per day), First dose on Sun08/18/24 at 2230, Until Discontinued * 0810 (Given - Provider: AUSTIN Patel) * 2039 (Not Given - Provider: Anais Addison RN - Reason: IV Fluid Infusing) * 0958 (Not Given - Provider: Meera Goodson RN - Reason: IV Fluid Infusing) * 2049 (Given - Provider: Tirso Bedolla RN) * 0856 (Given - Provider: Meera Goodson RN) * 2100 (Due) sodium chloride flush 0.9 % injection 5-40 mL 5-40 mL, IntraVENous, EVERY 12 HOURS SCHEDULED (2 times per day), First dose on Sun08/19/24 at 2100, Until Discontinued, For Line Patency: Peripheral IV = 5 mL; Midline or Central Line = 10 mL/lumen.If following IV push medication, administer flush at same rate as the IV push. Flush volume is determined by type of infusion therapy being given. For non-viscous solutions use: Peripheral IV = 5 mL Midline or Central Line = 10 mL/lumen For viscous solutions (i.e. blood components, parenteral nutrition, contrast media, or after obtaining blood sample) use: Peripheral IV = 10 mL Midline or CentralLine = 20 mL/lumen * 2041 (Not Given - Provider: Anais Addison RN - Reason: IV Fluid Infusing) * 0958 (Not Given - Provider: Meera Goodson RN - Reason: IV Fluid Infusing) * 2049 (Given - Provider: Tirso Bedolla RN) * 0857 (Not Given - Provider: Meera Goodson RN - Reason: Other) * 2100 (Due) Medication Order08/19//// lactated ringers infusion (CANCELED) IntraVENous, at 75 mL/hr, CONTINUOUS, Starting on Sun08/18/24 at 2230 * 1023 (Rate/Dose Verify - Provider: AUSTIN Patel) * 1404 (New Bag - Provider: Lupe Ford RN) * 1404 (Rate/Dose Verify - Provider: Lupe Ford RN) * 1545 (Rate/Dose Verify - Provider: Lupe Ford RN) * 1546 (Rate/Dose Verify - Provider: Lupe Ford RN) * 0324 (New Bag - Provider: Whitney Freed RN) * 1608 (New Bag - Provider: Meera Goodson, ARA) * 0508 (New Bag - Provider: Tirso Bedolla RN) * 0635 (Stopped - Provider: Meera Goodson RN) Medication Order08/19//// 0.9 % sodium chloride infusion IntraVENous, at 5-250 mL/hr, PRN, if patient receiving piggyback infusions and maintenance fluids are not ordered OR KVO fluids to protect IV site / prevent frequent line interruptions/ long duration, Starting on Sun08/18/24 at 2200, For piggyback infusion, administer at same rate [...] or less into rate field of order. 0.9 % sodium chloride infusion IntraVENous, at 5-250 mL/hr, PRN, if patient receiving piggyback infusions and maintenance fluids are not ordered OR KVO fluids to protect IV site / prevent frequent line interruptions/ long duration, Starting on Sun08/19/24 at 1215, For piggyback infusion, administer at same rate [...] Rectal, EVERY 6 HOURS PRN, Starting on Sun08/18/24 at 2200, Until Discontinued, Pain Mild (1-3), allowed for higher pain score per patient request, Fever, For temp greater than 100.4 F (38 C), Administer if oral route cannot be used. acetaminophen (TYLENOL) tablet 650 mg(Linked Group 1) 650 mg, Oral, EVERY 6 HOURS PRN, Starting on Sun08/18/24 at 2200, Until Discontinued, Pain Mild (1-3), allowed for higher pain score per patient request, Fever, For temp greater than 100.4 F (38 C), Maximum dose of acetaminophen is 4000 mg from all sources in 24 hours. magnesium sulfate 2000 mg in 50 mL IVPB premix 2,000 mg, IntraVENous, at 25 mL/hr, Administer over 2 Hours, PRN, Other, Magnesium Replacement, Starting on Sun08/18/24 at 2200, Mag Lab Replacement Action 1.4-1.6 mg/dL 2,000 [...] 2 doses Infuse at 1,000 mg/hr Repeat Maglevel 1 hour after final administration Protocol not for use in Patients with CrCl less than 30ml/min ondansetron (ZOFRAN) injection 4 mg(Linked Group 2) 4 mg, IntraVENous, EVERY 6 HOURS PRN, Starting on Sun08/18/24 at 2200, Until Discontinued, Nausea, Vomiting, Administer if oral route cannot be used. ondansetron (ZOFRAN-ODT) disintegrating tablet 4 mg(Linked Group 2) 4 mg, Oral, EVERY 8 HOURS PRN, Starting on Sun08/18/24 at 2200, Until Discontinued, Nausea, Vomiting polyethylene glycol (GLYCOLAX) packet 17 g 17 g, Oral, DAILY PRN, Starting on Sun08/18/24 at 2200, Until Discontinued, Constipation, First line therapy for constipation potassium bicarb-citric acid (EFFER-K) effervescent tablet 40 mEq(Linked Group 3) 40 mEq, Oral, PRN, Starting on Sun08/18/24 at 2200, Until Discontinued, Per Potassium Replacement Protocol, Administer [...] 3) 40 mEq, Oral, PRN, Starting on Sun08/18/24 at 2200, Until Discontinued, Potassium Replacement, May give alternative linked oral order (ordered as effervescent, packet, or liquid solution) if patient unable to tolerate tablet. K Lab Replacement Action 3.1 to 3.5 40 mEq ORAL x 1 Under 3.1 Refer to IV replacement protocol Recheck K level in AM. Protocol not for use in patients with CrCl less than 30mL/min. Do not crush, chew, or suck on tablet. Tablet may also be broken in half and each half swallowed separately. potassium chloride 10 mEq/100 mL IVPB (Peripheral Line)(Linked Group 3) 10 mEq, IntraVENous, PRN, Starting on Sun08/18/24 at 2200, Until Discontinued, at 100 mL/hr, Potassium Replacement, [...] mL/min. sodium chloride flush 0.9 % injection 10 mL 10 mL, IntraVENous, PRN, Starting on Sun08/18/24 at 2200, Until Discontinued, Line Care, After every IV line use sodium chloride flush 0.9 % injection 5-40 mL 5-40 mL, IntraVENous, PRN, Starting on Sun08/19/24 at 1215, Until Discontinued, Line Care, After every IV [...] For viscous solutions (i.e. blood components, parenteral nutrition,contrast media, or after obtaining blood sample) use: Peripheral IV = 10 mL Midline or Central Line= 20 mL/lumen Order Group 1: acetaminophen (TYLENOL) tablet 650 mgJump to med 650 mg, Oral, EVERY 6 HOURS PRN, Starting on Sun08/18/24 at 2200, Until Discontinued, Pain Mild (1-3), allowed for higher pain score per patient request, Fever, For temp greater than 100.4 F (38 C), Maximum dose of acetaminophen is 4000 mg from all sources in 24 hours. Or acetaminophen (TYLENOL) suppository 650 mgJump to med 650 mg, Rectal, EVERY 6 HOURS PRN, Starting on Sun08/18/24 at 2200, Until Discontinued, Pain Mild (1-3), allowed for higher pain score per patient request, Fever, For temp greater than 100.4 F (38 C), Administer if oral route cannot be used. Group 2: ondansetron (ZOFRAN-ODT) disintegrating tablet 4 mgJump to med 4 mg, Oral, EVERY 8 HOURS PRN, Starting on Sun08/18/24 at 2200, Until Discontinued, Nausea, Vomiting Or ondansetron (ZOFRAN) injection 4 mgJump to med 4 mg, IntraVENous, EVERY 6 HOURS PRN, Starting on Sun08/18/24 at 2200, Until Discontinued, Nausea, Vomiting, Administer if oral route cannot be used. Group 3: potassium chloride (KLOR-CON M) extended release tablet 40 mEqJump to med 40 mEq, Oral, PRN, Starting on Sun08/18/24 at 2200, Until Discontinued, Potassium Replacement, May give alternative linked oral order (ordered as effervescent, packet, or liquid solution) if patient unable to tolerate tablet. K Lab Replacement Action 3.1 to 3.5 40 mEq ORAL x 1 Under 3.1 Refer to IV replacement protocol Recheck K level in AM. Protocol not for use in patients with CrCl less than 30mL/min. Do not crush, chew, or suck on tablet. Tablet may also be broken in half and each half swallowed separately. Or potassium bicarb-citric acid (EFFER-K) effervescent tablet 40 mEqJump to med 40 mEq, Oral, PRN, Starting on Sun08/18/24 at 2200, Until Discontinued, Per Potassium Replacement Protocol, Administer [...] med 10 mEq, IntraVENous, PRN, Starting on Sun08/18/24 at 2200, Until Discontinued, at 100 mL/hr, Potassium Replacement, K Lab Replacement Action 2.7 to 3.0 10 mEq IVPB x 6 doses (60 mEq Total) Under 2.7 CALL PROVIDER and administer 10 mEq IVPB x 6 doses (60 mEq Total) Infuse at 10 mEq/hr. Repeat Potassium lab 1 hour after final administration. Protocol not for use in patients with CrCl less than 30 mL/min. Medication Order// enoxaparin (LOVENOX) syringe 40 mg 40 mg, subcutaneous, Daily, First dose on Sun10/15/24 at 1530, Look-alike/sound-alike medication - verify indication for use. * 1037 (Given - Provider: Elliott Cabrera RN) * 0913 (Given - Provider: Elliott Cabrera RN) * 1011 (Given - Provider: Elliott Cabrera RN) famotidine (PF) (PEPCID) injection 20 mg (CANCELED) 20 mg, intravenous, Every 12 hours scheduled, First dose on Sun10/14/24 at 2100, Dilute to total volume of 5 mL with 0.9% sod chl and administer IVP over 2 minutes. * 1036 (Given - Provider: Elliott Cabrera RN) * 2108 (Given - Provider: Nola Solo RN) finasteride (PROSCAR) tablet 5 mg 5 mg, oral, Daily, First dose on Sun10/18/24 at 0900, Look-alike/sound-alike medication - verify indication for use. Crushed or broken tablets should not be handled by a woman who is or may become because of the potential for absorption and the subsequent potential risk to fetus. * 0907 (Given - Provider: Elliott Cabrera RN) * 1005 (Given - Provider: Elliott Cabrera RN) lacosamide (VIMPAT) tablet 150 mg 150 mg, oral, 2 times daily, First dose on Sun10/17/24 at 2100, Swallow tablets whole; do not divide. * 210 (Given - Provider: Nola Solo RN) * 0906 (Given - Provider: Elliott Cabrera RN) * 210 (Given - Provider: Nola Solo RN) * 1004 (Given - Provider: Elliott Cabrera RN) * 2100 (Due) lamoTRIgine (LaMICtal) tablet 400 mg 400 mg, oral, Daily, First dose on Sun10/18/24 at 0900, Look-alike/sound-alike medication - verify indication for use. * 0906 (Given - Provider: Elliott Cabrera RN) * 1004 (Given - Provider: Elliott Cabrera RN) lamoTRIgine (LaMICtal) tablet 600 mg 600 mg, oral, Nightly, First dose on Sun10/17/24 at 2200, Look-alike/sound-alike medication - verify indication for use. * 2108 (Given - Provider: Nola Solo RN) * 2102 (Given - Provider: Nola Solo RN) * 2199 (Due) latanoprost (XALATAN) 0.005 % ophthalmic solution 1 drop 1 drop, both eyes, Nightly, First dose on Sun10/17/24 at 2200 * 2142 (Given - Provider: Nola Solo RN) * 210 (Given - Provider: Nola Solo RN) * 2200 (Due) levETIRAcetam (KEPPRA) 1,000 mg in sodium chloride 0.9 % 110 mL IVPB (CANCELED) 1,000 mg, intravenous, at 440 mL/hr, Administer over 15 Minutes, Every 12 hours, First dose on Sun10/14/24 at 1500, Look-alike/sound-alike medication. Verify indication for use. * 0901 (New Bag - Provider: Elliott Cabrera RN) * 0916 (Stop Bag - Provider: Elliott Cabrera RN) levETIRAcetam (KEPPRA) tablet 1,500 mg 1,500 mg, oral, Daily, First dose on Sun10/18/24 at 0900, Look-alike/sound-alike medication - verify indication for use. * 0907 (Given - Provider: Elliott Cabrera RN) * 1004 (Given - Provider: Elliott Cabrera RN) levETIRAcetam (KEPPRA) tablet 2,000 mg 2,000 mg, oral, Bedtime, First dose on Sun10/17/24 at 2200, Look-alike/sound-alike medication - verify indication for use. * 2109 (Given - Provider: Nola Solo RN) * 2104 (Given - Provider: Nola Solo RN) * 2200 (Due) levoFLOXacin (LEVAQUIN) IVPB 750 mg/150 mL in dextrose 5% (5 mg/mL premix) 750 mg, intravenous, at 100 mL/hr, Administer over 90 Minutes, Every 24 hours, First dose on Sun10/15/24 at 1600, Look-alike/sound-alike medication - verify indication for use. May alter blood glucose or insulin requirements., Fluoroquinolones contain FDA Black Box warnings. Due to safety concerns,avoid use in acute bacterial sinusitis, acute bacterial exacerbation of chronic bronchitis, or acute uncomplicated cystitis if possible. Use alternative treatment if available. I acknowledge the Black Box warnings of fluoroquinolones., Indications: E. coli pyelonephritis * 1732 (New Bag - Provider: Elliott Cabrera RN) * 1824 (Rate/Dose Verify - Provider: Elliott Cabrera RN) * 1902 (Stop Bag - Provider: Nola Solo RN) * 1637 (New Bag - Provider: Elliott Cabrera RN) * 1806 (Stop Bag - Provider: Elliott Cabrera RN) * 1807 (Stop Bag - Provider: Elliott Cabrera RN) * 1600 (Due) magnesium oxide (MAGOX) tablet 400 mg 400 mg, oral, Daily, First dose on Sun10/17/24 at 1330 * 1727 (Given - Provider: Elliott Cabrera RN) * 0906 (Given - Provider: Elliott Cabrera RN) * 1004 (Given - Provider: Elliott Cabrera RN) metroNIDAZOLE (FLAGYL) IVPB 500 mg/100 mL in iso-osmotic sodium chloride (5 mg/mL premix) 500 mg, intravenous, at 100 mL/hr, Administer over 60 Minutes, Every 12 hours, First dose on Vilma 10/16/24 at 0000, Look-alike/sound-alike medication - verify indication for use., Indication: Intra-abdominal * 0059 (Stop Bag - Provider: Valeria Maddox RN) * 1229 (New Bag - Provider: Elliott Cabrera RN) * 1234 (Rate/Dose Verify - Provider: Elliott Cabrera RN) * 1329 (Stop Bag - Provider: Elliott Cabrera RN) * 0025 (New Bag - Provider: Nola Solo RN) * 0125 (Stop Bag - Provider: Nola Solo, ARA) * 1237 (New Bag - Provider: Elliott Cabrera RN) * 1331 (Stop Bag - Provider: Elliott Cabrera RN) * 1332 (Stop Bag - Provider: Elliott Cabrera RN) * 1337 (Stop Bag - Provider: Elliott Cabrera, ARA) * 2349 (New Bag - Provider: Nola Solo RN) * 0040 (Stop Bag - Provider: Elliott Cabrera RN) * 0049 (Stop Bag - Provider: Nola Solo RN) * 1257 (New Bag - Provider: Elliott Cabrera RN) * 1357 (Stop Bag - Provider: Elliott Cabrera, ARA) pantoprazole (PROTONIX) EC tablet 40 mg 40 mg, oral, Daily, First dose on Sun10/18/24 at 0900, Look-alike/sound-alike medication - verify indication for use. If patient is receiving enteral feeding, consider alternative PPI or continue IV pantoprazole until the delayed-release tablet can be taken orally, Indication: Dispense As Written (JACQUELINE) * 0907 (Given - Provider: Elliott Cabrera RN) * 0900 (Given - Provider: Elliott Cabrera RN) primidone (MYSOLINE) tablet 250 mg 250 mg, oral, Daily, First dose on Sun10/18/24 at 0900 * 0906 (Given - Provider: Elliott Cabrera RN) * 1005 (Given - Provider: Elliott Cabrera RN) primidone (MYSOLINE) tablet 375 mg 375 mg, oral, Nightly, First dose on Sun10/18/24 at 2200 * 2104 (Given - Provider: Nola Solo RN) * 2200 (Due) sodium chloride 0.9 % flush 20 mL(Linked Group 1) 20 mL, intravenous, Every 12 hours, First dose on Sun10/14/24 at 1420, PICC line. Administer 10 mL per lumen; 20 mL total (for double lumen flush) * 0403 (Given - Provider: Valeria Maddox RN) * 1519 (Given - Provider: Elliott Cabrera RN) * 0201 (Given - Provider: Nola Solo RN) * 1541 (Given - Provider: Elilott Cabrera, ARA) * 0226 (Given - Provider: Nola Solo RN) * 1420 (Not Given - Provider: Elliott Cabrera RN - Reason: Other - Comment: Patient being DC'd) tamsulosin (FLOMAX) 24 hr capsule 0.4 mg 0.4 mg, oral, 2 times daily, First dose on Sun10/18/24 at 0900, Do not crush or chew. * 0907 (Given - Provider: Elliott Cabrera RN) * 2104 (Given - Provider: Nola Solo RN) * 1004 (Given - Provider: Elliott Cabrera, ARA) * 2100 (Due) Medication Order10/17//// dextrose 5 % and sodium chloride 0.45 % infusion (CANCELED) 75 mL/hr, intravenous, Continuous, Starting on Vilma 10/16/24 at 1315, For 1 day * 0117 (Restarted - Provider: Valeria Maddox RN) * 0732 (Stop Bag - Provider: Elliott Cabrera RN - Comment: [Order ends at this time. Document the following action when infusion is complete: Stop Bag]) dextrose 5 % and sodium chloride 0.45 % with KCl 20 mEq/L infusion () 75 mL/hr, intravenous, Continuous, Starting on Sun10/17/24 at 0800, For 1 day * 0800 (New Bag - Provider: Elliott Cabrera RN) * 0900 (Stop Bag - Provider: Elliott Cabrera RN) dextrose 5 % and sodium chloride 0.45 % with KCl 20 mEq/L infusion 50 mL/hr, intravenous, Continuous, Starting on Sun10/18/24 at 0830 * 0830 (Canceled Entry - Provider: Elliott Cabrera RN) * 0920 (New Bag - Provider: Elliott Cabrera RN) * 0938 (Rate/Dose Verify - Provider: Elliott Cabrera RN) * 1636 (Paused - Provider: Elliott Cabrera RN) * 1808 (Restarted - Provider: Elliott Cabrera RN) * 0709 (Stop Bag - Provider: Elliott Cabrera RN) * 0710 (Stop Bag - Provider: Elliott Cabrera RN) * 0710 (New Bag - Provider: Elliott Cabrera RN) * 1402 (Stop Bag - Provider: Elliott Cabrera RN) * 1410 (Stop Bag - Provider: Elliott Cabrera RN) Medication Order// acetaminophen (TYLENOL) tablet 650 mg 650 mg, nasogastric, Every 6 hours PRN, mild pain - pain scale 1-3, moderate pain - pain scale 4-6,headaches, temperature greater than 38 C, Temperature greater than 38.3 C, Starting on Sun10/14/24 at 1552, [Warning: Total Acetaminophen not to exceed more than 4 grams (4000 mg) in 24 hours], Indica tions: fever albuterol (PROVENTIL,VENTOLIN) nebulizer solution 2.5 mg 2.5 mg, nebulization, Every 6 hours PRN, shortness of breath, wheezing, Starting on Sun10/17/24 at 1317, Implement INPATIENT/ED Bronchodilator Clinical Practice Guidelines? Yes * 1664 (Given - Provider: Jen Pacheco RCP) dextrose (GLUTOSE) 40 % gel 15 g 15 g, oral, As needed, low blood sugar, blood glucose less than 70 mg/dL, Starting on Sun10/14/24 at 1552, If patient conscious and taking PO. If blood glucose is not greater than 70 mg/dL after initial treatment, repeat treatment. dextrose 50 % in water (D50W) 50% solution 25 mL 25 mL, intravenous, As needed, low blood sugar, blood glucose less than 70 mg/dL and unconscious orNPO with IV access, Starting on Sun10/14/24 at 1552, Push over 1-3 minutes STAT. If conscious [...] or NPO without IV access., Starting on Sun10/14/24 at 1552, If conscious and not NPO, immediately follow with meal tray or high protein (7Grams) snack if tray not available. If NPO, initiate IV 5% Dextr ose/Water at 100 mL/hr and contact prescriber for additional orders. If blood glucose is not greater than 70 mg/dL after initial treatment, repeat treatment. LORazepam (ATIVAN) injection 1 mg 1 mg, intravenous, Every 6 hours PRN, seizures, Starting on Sun10/15/24 at 1210, Look-alike/sound-alike medication - verify indication for use;IV use requires increased monitoring of HR,BP,Respirations and Pulse Oximetry;For IV-dilute with equal volume PF sod chloride magnesium sulfate IVPB 2000 mg/50 mL in iso-osmotic water (40 mg/mL premix) 2,000 mg, intravenous, at 25 mL/hr, Administer over 120 Minutes, As needed, Magnesium level 1.7 to 1.9 mg/dL, or Ionized Magnesium level 0.45 to 0.5 mmol/L., Starting on Sun10/14/24 at 1552, Recheck magnesium level 4 hours after infusion complete. With each magnesium result continue the replacementorders as needed. * 2150 (New Bag - Provider: Nola Solo RN) * 2350 (Stop Bag - Provider: Nola Solo RN) magnesium sulfate IVPB 4000 mg/100 mL in iso-osmotic water (40 mg/mL premix) 4,000 mg, intravenous, at 25 mL/hr, Administer over 240 Minutes, As needed, Magnesium level 1.6 mg/dL or less, or Ionized Magnesium level 0.44 mmol/L or less, Starting on Sun10/14/24 at 1552, Recheckmagnesium level 4 hours after infusion complete. With each magnesium result continue the replacement orders as needed. * 0526 (New Bag - Provider: Valeria Maddox RN) * 0858 (Stop Bag - Provider: Elliott Cabrera RN) * 0902 (Stop Bag - Provider: Elliott Cabrera RN) * 0708 (New Bag - Provider: Elliott Cabrera RN) * 1058 (Stop Bag - Provider: Elliott Cabrera RN) * 1059 (Stop Bag - Provider: Elliott Cabrera, ARA) * 1108 (Stop Bag - Provider: Elliott Cabrera RN) ondansetron (PF) (ZOFRAN) injection 4 mg 4 mg, intravenous, Every 6 hours PRN, nausea, vomiting, Starting on Sun10/14/24 at 1552, Intravenous administration preferred to be given over 2-5 minutes. potassium chloride (KAYCIEL) 20 mEq/15 mL solution 20-40 mEq(Linked Group 2) 20-40 mEq, oral, As needed, Potassium Supplementation, Starting on Sun10/14/24 at 1552, Progress tooral potassium replacement when patient tolerating oral intake. If dose administered, recheck potassium level 4 hours after last dose. For potassium level 3.4 to 3.8 mmol/L and GFR less than 30 mL/min or dialysis=20 mEq. For potassium level 3.1 to 3.3 mmol/L and GFR less than 30 mL/min or dialysis=30 mEq. For potassium level 3 mmol/L or less and GFR less than 30 mL/min or dialysis=40 mEq. Must dilute before use - Mix in 3-8 ounces of water or juice before administration When administering in feeding tube, flush before and after per policy and monitor potassium levels * 0527 (See Alternative - Provider: Valeria Maddox RN) * 0627 (See Alternative - Provider: Elliott Cabrera, ARA) * 0641 (See Alternative - Provider: Valeria Maddox, ARA) * 0642 (See Alternative - Provider: Valeria Maddox, ARA) * 0742 (See Alternative - Provider: Elliott Cabrera, ARA) potassium chloride (KLOR-CON M 20) CR tablet 20-40 mEq(Linked Group 2) 20-40 mEq, oral, As needed, Potassium Supplementation, Starting on Sun10/14/24 at 1552, Progress tooral potassium replacement when patient tolerating oral intake. If dose administered, recheck potassium level 4 hours after last dose. For potassium level 3.4 to 3.8 mmol/L and GFR less than 30 mL/min or dialysis=20 mEq. For potassium level 3.1 to 3.3 mmol/L and GFR less than 30 mL/min or dialysis=30 mEq. For potassium level 3 mmol/L or less and GFR less than 30 mL/min or dialysis=40 mEq. Do not crush or chew. * 0527 (See Alternative - Provider: Valeria Maddox RN) * 0627 (See Alternative - Provider: Elliott Cabrera, ARA) * 0641 (See Alternative - Provider: Valeria Maddox, ARA) * 0642 (See Alternative - Provider: Valeria Maddox, ARA) * 0742 (See Alternative - Provider: Elliott Cabrera, ARA) potassium chloride IVPB 10 mEq/100 mL in water (0.1 mEq/mL premix)(Linked Group 2) 10 mEq, intravenous, at 100 mL/hr, Administer over 60 Minutes, As needed, POTASSIUM REPLACEMENT, Starting on Sun10/14/24 at 1552, IV if unable to use oral/enteral with the current dosing strategies Potassium level 3 mmol/L or less administer Potassium Chloride 40 mEq Potassium level 3.1 to 3.3 mmol/L administer Potassium Chloride 30 mEq Potassium level 3.4 to 3.8 mmol/L administer Potassium Chloride 20 mEq Use central line when applicable. Recheck potassium level 1 hour after total IVPB infusion complete, With each potassium result continue the replacement orders as needed VESICANT (YELLOW) Infuse each 10 mEq over a minimum of 1 hour. * 0527 (New Bag - Provider: Valeria Maddox, ARA) * 0627 (Stop Bag - Provider: Elliott Cabrera, ARA) * 0641 (Stop Bag - Provider: Valeria Maddox, ARA) * 0642 (New Bag - Provider: Valeria Maddox RN) * 0742 (Stop Bag - Provider: Elliott Cabrera RN) sennosides-docusate sodium (SENOKOT-S) 8.6-50 mg 1 tablet 1 tablet, oral, Every 12 hours PRN, constipation, Starting on Sun10/14/24 at 1552 sodium chloride 0.9 % flush 10 mL 10 mL, intravenous, As needed, line care, Starting on Sun10/14/24 at 1229 sodium chloride 0.9 % flush 20 mL(Linked Group 1) 20 mL, intravenous, As needed, line care, Starting on Sun10/14/24 at 1417, PICC line. Administer 10mL to each lumen before and after each use. Administer 10 mL per lumen; 20 mL total (for double lumen flush) sodium chloride 0.9 % flush 3 mL 3 mL, intravenous, As needed, line care, before and after each intermittent use, Starting on Sun10/14/24 at 1122 sodium chloride 0.9 % flush 40 mL(Linked Group 1) 40 mL, intravenous, As needed, line care, Starting on Sun10/14/24 at 1417, PICC line. Administer 20mL to each lumen after lab draws, blood infusion, and meds known to precipitate. Administer 20 mL per lumen; 40 mL total (for double lumen flush) sodium chloride 0.9 % flush bag 25 mL, intravenous, at 100 mL/hr, Administer over 15 Minutes, As needed, line care, line care afterIVPB administration, Starting on Sun10/14/24 at 1552 sodium chloride 0.9 % radiology injection 80 mL, intravenous, Once in imaging, pre/post contrast, Starting on Sun10/14/24 at 1229, For 1 dose Order Group 1: Consult PICC nurse - Midline () Reason for consult? Insert Midline IV, Indication: Difficult Access, Duration of therapy 14 days orless, Number of Lumen(s): 2 Lumens, Reason for multiple lumens: IV fluids, antibiotics, possibly pressors. And sodium chloride 0.9 % flush 20 mLJump to med 20 mL, intravenous, Every 12 hours, First dose on Sun10/14/24 at 1420, PICC line. Administer 10 mL per lumen; 20 mL total (for double lumen flush) And sodium chloride 0.9 % flush 20 mLJump to med 20 mL, intravenous, As needed, line care, Starting on Sun10/14/24 at 1417, PICC line. Administer 10mL to each lumen before and after each use. Administer 10 mL per lumen; 20 mL total (for double lumen flush) And sodium chloride 0.9 % flush 40 mLJump to med 40 mL, intravenous, As needed, line care, Starting on Sun10/14/24 at 1417, PICC line. Administer 20mL to each lumen after lab draws, blood infusion, and meds known to precipitate. Administer 20 mL per lumen; 40 mL total (for double lumen flush) Group 2: potassium chloride (KLOR-CON M 20) CR tablet 20-40 mEqJump to med 20-40 mEq, oral, As needed, Potassium Supplementation, Starting on Sun10/14/24 at 1552, Progress tooral potassium replacement when patient tolerating oral intake. If dose administered, recheck potassium level 4 hours after last dose. For potassium level 3.4 to 3.8 mmol/L and GFR less than 30 mL/min or dialysis=20 mEq. For potassium level 3.1 to 3.3 mmol/L and GFR less than 30 mL/min or dialysis=30 mEq. For potassium level 3 mmol/L or less and GFR less than 30 mL/min or dialysis=40 mEq. Do not crush or chew. Or potassium chloride (KAYCIEL) 20 mEq/15 mL solution 20-40 mEqJump to med 20-40 mEq, oral, As needed, Potassium Supplementation, Starting on Sun10/14/24 at 1552, Progress tooral potassium replacement when patient tolerating oral intake. If dose administered, recheck potassium level 4 hours after last dose. For potassium level 3.4 to 3.8 mmol/L and GFR less than 30 mL/min or dialysis=20 mEq. For potassium level 3.1 to 3.3 mmol/L and GFR less than 30 mL/min or dialysis=30 mEq. For potassium level 3 mmol/L or less and GFR less than 30 mL/min or dialysis=40 mEq. Must dilute before use - Mix in 3-8 ounces of water or juice before administration When administering in feeding tube, flush before and after per policy and monitor potassium levels Or potassium chloride IVPB 10 mEq/100 mL in water (0.1 mEq/mL premix)Jump to med 10 mEq, intravenous, at 100 mL/hr, Administer over 60 Minutes, As needed, POTASSIUM REPLACEMENT, Starting on Sun10/14/24 at 1552, IV if unable to use oral/enteral with the current dosing strategies Potassium level 3 mmol/L or less administer Potassium Chloride 40 mEq Potassium level 3.1 to 3.3 mmol/L administer Potassium Chloride 30 mEq Potassium level 3.4 to 3.8 mmol/L administer Potassium Chloride 20 mEq Use central line when applicable. Recheck potassium level 1 hour after total IVPB infusion complete, With each potassium result continue the replacement orders as needed VESICANT (YELLOW) Infuse each 10 mEq over a minimum of 1 hour. Medication Order//08/2024 alteplase (CATHFLO) injection 2 mg 2 mg, intravenous, Once, On Sun01/07/25 at 0630, For 1 dose, Look-alike/sound-alike medication - verify indication for use. * 0630 (Not Given - Provider: Kulwinder Teran RN - Reason: Other) calcium carbonate (TUMS) 200 mg elemental (500 mg) chewable tablet 200 mg 200 mg, oral, 2 times daily, First dose on Sun01/06/25 at 2100, Ordered as elemental calcium. 200 mg elemental calcium = 500 mg calcium carbonate * 2106 (Given - Provider: Nola Solo RN) * 0939 (Given - Provider: Kulwinder Teran RN) * 2225 (Given - Provider: Brittny Ruby RN) * 0908 (Given - Provider: Kulwinder Teran RN) * 2100 (Due) ciprofloxacin (CIPRO) IVPB 400 mg/200 mL in dextrose 5% (2 mg/mL premix) 400 mg, intravenous, at 200 mL/hr, Administer over 60 Minutes, Every 12 hours, First dose on Sun01/06/25 at 1230, Protect from light; May alter blood glucose or insulin requirements., Specific Use Criteria: UTI (documented susceptible organism), Fluoroquinolones contain FDA Black Box warnings. Due to safety concerns, avoid use in acute bacterial sinusitis, acute bacterial exacerbation of chronic bronchitis, or acute uncomplicated cystitis if possible. Use alternative treatment if available. I acknowledge the Black Box warnings of fluoroquinolones. * 1245 (New Bag - Provider: Radha Fernandes RN) * 1346 (Stop Bag - Provider: Radha Fernandes RN) * 0024 (New Bag - Provider: Nola Solo RN) * 0123 (Stop Bag - Provider: Brittny Ruby RN) * 0124 (Stop Bag - Provider: Nola Solo RN) * 1336 (New Bag - Provider: Kulwinder Teran RN) * 1436 (Stop Bag - Provider: Kulwinder Teran RN) * 0024 (New Bag - Provider: Brittny Ruby RN) * 0123 (Stop Bag - Provider: Brittny Ruby RN) * 1214 (New Bag - Provider: Kulwinder Teran RN) * 1314 (Stop Bag - Provider: Kulwinder Teran RN) finasteride (PROSCAR) tablet 5 mg 5 mg, oral, Daily, First dose on Sun01/07/25 at 0900, Look-alike/sound-alike medication - verify indication for use. Crushed or broken tablets should not be handled by a woman who is or may become because of the potential for absorption and the subsequent potential risk to fetus. * 0938 (Given - Provider: Kulwinder Teran RN) * 0908 (Given - Provider: Kulwinder Teran RN) heparin (porcine) injection 5,000 Units 5,000 Units, subcutaneous, Every 8 hours scheduled, First dose on Sun01/05/25 at 0800, Look-alike/sound-alike medication - verify indication for use. Observe for bleeding. * 0600 (Not Given - Provider: Yolanda Gamino RN - Reason: Other - Comment: held pre procedure) * 0810 (MAY Hold - Provider: Automatic Transfer Provider - Reason: Patient not available) * 0912 (MAY Unhold - Provider: Automatic Transfer Provider) * 1348 (Given - Provider: Radha Fernandes RN) * 2215 (Given - Provider: Nola Solo RN) * 0554 (Given - Provider: Nola Solo RN) * 1456 (Given - Provider: Kulwinder Teran RN) * 2225 (Given - Provider: Brittny Ruby RN) * 0620 (Given - Provider: Brittny Ruby RN) * 1540 (Given - Provider: Kulwinder Teran RN) * 2200 (Due) lacosamide (VIMPAT) 10 mg/mL solution 150 mg (CANCELED) 150 mg, oral, 2 times daily, First dose on Sun01/05/25 at 0900 * 0810 (MAY Hold - Provider: Automatic Transfer Provider - Reason: Patient not available) * 0912 (MAY Unhold - Provider: Automatic Transfer Provider) * 1058 (Given - Provider: Radha Fernandes RN) lacosamide (VIMPAT) tablet 150 mg 150 mg, oral, 2 times daily, First dose on Sun01/06/25 at 2100, Swallow tablets whole; do not divide. * 2106 (Given - Provider: Nola Solo RN) * 0938 (Given - Provider: Kulwinder Teran RN) * 2223 (Given - Provider: Brittny Ruby RN) * 0908 (Given - Provider: Kulwinder Teran RN) * 2100 (Due) Lactobacillus acidophilus (BACID) capsule 1 capsule 1 capsule, oral, 2 times daily with meals, First dose on Sun01/06/25 at 1700, Administer with wateror milk during a meal. * 1713 (Given - Provider: Radha Fernandes RN) * 0938 (Given - Provider: Kulwinder Teran RN) * 1628 (Given - Provider: Kulwinder Teran RN) * 0912 (Given - Provider: Kulwinder Teran RN) * 1700 (Due) lamoTRIgine (LaMICtal) tablet 400 mg 400 mg, oral, Daily, First dose on Sun01/07/25 at 0900, Look-alike/sound-alike medication - verify indication for use. * 0939 (Given - Provider: Kulwinder Teran RN) * 0905 (Given - Provider: Kulwinder Teran RN) lamoTRIgine (LaMICtal) tablet 600 mg 600 mg, oral, Nightly, First dose on Sun01/06/25 at 2200, Look-alike/sound-alike medication - verify indication for use. * 2106 (Given - Provider: Nola Solo RN) * 222 (Given - Provider: Brittny Ruby, ARA) * 220 (Due) latanoprost (XALATAN) 0.005 % ophthalmic solution 1 drop 1 drop, both eyes, Nightly, First dose on Sun01/06/25 at 2200 * 210 (Given - Provider: Nola Solo RN) * 225 (Given - Provider: Brittny Ruby RN) * 220 (Due) levETIRAcetam (KEPPRA) 1,000 mg in sodium chloride 0.9 % 110 mL IVPB (CANCELED) 1,000 mg, intravenous, at 440 mL/hr, Administer over 15 Minutes, Every 12 hours scheduled, First dose on Sun01/05/25 at 0830, Look-alike/sound-alike medication. Verify indication for use. * 0735 (New Bag - Provider: Radha Fernandes RN) * 0750 (Stop Bag - Provider: Radha Fernandes RN) * 0810 (MAY Hold - Provider: Automatic Transfer Provider - Reason: Patient not available) * 0912 (MAY Unhold - Provider: Automatic Transfer Provider) levETIRAcetam (KEPPRA) tablet 1,500 mg 1,500 mg, oral, Daily, First dose on Sun01/07/25 at 0900, Look-alike/sound-alike medication - verify indication for use. * 0938 (Given - Provider: Kulwinder Teran RN) * 0907 (Given - Provider: Kulwinder Teran RN) levETIRAcetam (KEPPRA) tablet 2,000 mg 2,000 mg, oral, Bedtime, First dose on Sun01/06/25 at 2200, Look-alike/sound-alike medication - verify indication for use. * 2105 (Given - Provider: Nola Solo RN) * 222 (Given - Provider: Brittny Ruby, ARA) * 220 (Due) magnesium oxide (MAGOX) tablet 400 mg 400 mg, oral, Daily, First dose on Sun01/07/25 at 0900 * 0939 (Given - Provider: Kulwinder Teran RN) * 0908 (Given - Provider: Kulwinder Teran RN) meclizine (ANTIVERT) tablet 25 mg 25 mg, oral, Daily, First dose on Sun01/06/25 at 1345, Look-alike/sound-alike medication - verify indication for use. * 1713 (Given - Provider: Radha Fernandes RN) * 0939 (Given - Provider: Kulwinder Teran RN) * 0907 (Given - Provider: Kulwinder Teran RN) metoclopramide (REGLAN) injection 5 mg 5 mg, intravenous, Every 6 hours, First dose (after last modification) on Sun01/05/25 at 0930, Administer over 2 minutes., Intravenous Specific Administration: IV Push * 0330 (Given - Provider: Yolanda Gamino RN) * 0810 (MAY Hold - Provider: Automatic Transfer Provider - Reason: Patient not available) * 0912 (MAY Unhold - Provider: Automatic Transfer Provider) * 1058 (Given - Provider: Radha Fernandes RN) * 171 (Given - Provider: Radha Fernandes RN) * 210 (Given - Provider: Nola Solo RN) * 0319 (Given - Provider: Nola Solo RN) * 0940 (Given - Provider: Kulwinder Teran RN) * 1629 (Given - Provider: Kulwinder Teran RN) * 2226 (Given - Provider: Brittny Ruby, ARA) * 0402 (Given - Provider: Brittny Ruby, ARA) * 0908 (Given - Provider: Kulwinder Teran RN) * 1540 (Given - Provider: Kulwinder Teran RN) * 213 (Due) pantoprazole (PROTONIX) injection 40 mg 40 mg, intravenous, Every 24 hours scheduled, First dose on Sun01/05/25 at 0900, Look-alike/sound-alike medication - verify indication for use., Indication: Other (JACQUELINE) * 0627 (Given - Provider: Yolanda Gamino RN) * 0810 (MAR Hold - Provider: Automatic Transfer Provider - Reason: Patient not available) * 0912 (MAY Unhold - Provider: Automatic Transfer Provider) * 0555 (Given - Provider: Nola Solo RN) * 0620 (Given - Provider: Brittny Ruby, ARA) primidone (MYSOLINE) tablet 250 mg 250 mg, oral, Daily, First dose on Sun01/06/25 at 1345 * 1713 (Given - Provider: Radha Fernandes, ARA) * 0938 (Given - Provider: Kulwinder Teran, ARA) * 0907 (Given - Provider: Kulwinder Teran, ARA) primidone (MYSOLINE) tablet 375 mg 375 mg, oral, Nightly, First dose on Sun01/06/25 at 2200 * 210 (Given - Provider: Nola Solo RN) * 222 (Given - Provider: Brittny Ruby, ARA) * 2199 (Due) sodium chloride 0.9 % flush 10 mL(Linked Group 1) 10 mL, intravenous, Every 12 hours, First dose on Sun01/05/25 at 0815, PICC line. Administer 10 mL per lumen; 10 mL total (for single lumen flush) * 0810 (MAY Hold - Provider: Automatic Transfer Provider - Reason: Patient not available) * 0815 (Dose Auto Held - Provider: Automatic Transfer Provider) * 0912 (MAY Unhold - Provider: Automatic Transfer Provider) * 1938 (Given - Provider: Nola Solo RN) * 0940 (Given - Provider: Kulwinder Teran, ARA) * 222 (Given - Provider: Brittny Ruby, ARA) * 0929 (Given - Provider: Kulwinder Teran, ARA) * 2014 (Due) tamsulosin (FLOMAX) 24 hr capsule 0.4 mg 0.4 mg, oral, 2 times daily, First dose on Sun01/06/25 at 2100, Do not crush or chew. * 210 (Given - Provider: Nola Solo RN) * 0939 (Given - Provider: Kulwinder Teran, RN) * 2224 (Given - Provider: Brittny Ruby, RAA) * 0908 (Given - Provider: Kulwinder Teran, ARA) * 2100 (Due) Medication Order/ sodium chloride 0.9 % infusion (CANCELED) 100 mL/hr, intravenous, Continuous, Starting on Sun01/05/25 at 0830, For 1 day * 0148 (Stop Bag - Provider: Yolanda Gamino, RN) * 0150 (New Bag - Provider: Yolanda Gamino, RN) * 0753 (Stop Bag - Provider: Radha Fernandes, RN) * 0810 ([facility] Hold - Provider: Automatic Transfer Provider - Reason: Patient not available) * 0912 ([facility] Unhold - Provider: Automatic Transfer Provider) * 1124 (Restarted - Provider: Radha Fernandes, RN) * 1245 (Stop Bag - Provider: Radha Fernandes, RN) Medication Order/ acetaminophen (TYLENOL) tablet 650 mg 650 mg, oral, Every 6 hours PRN, mild pain - pain scale 1-3, temperature greater than 38 C, Starting on 01/04/25 at 2323, [Warning: Total Acetaminophen not to exceed more than 4 grams (4000 mg) in24 hours] * 0810 ([facility] Hold - Provider: Automatic Transfer Provider - Reason: Patient not available) * 0912 ([facility] Unhold - Provider: Automatic Transfer Provider) albuterol (PROVENTIL,VENTOLIN) nebulizer solution 2.5 mg 2.5 mg, nebulization, Every 6 hours PRN, wheezing, shortness of breath, Starting on Sun01/05/25 at 0749, Implement INPATIENT/ED Bronchodilator Clinical Practice Guidelines? Yes * 0810 ([facility] Hold - Provider: Automatic Transfer Provider - Reason: Patient not available) * 0912 ([facility] Unhold - Provider: Automatic Transfer Provider) alum-mag hydroxide-simeth (MAALOX) 200-200-20 mg/5 mL suspension 30 mL 30 mL, oral, 4 times daily after meals and at bedtime as needed, dyspepsia, Starting on Sun01/04/25at 2323, Look-alike/sound-alike medication - verify indication for use. Shake well., Indications: dyspepsia * 0810 ([facility] Hold - Provider: Automatic Transfer Provider - Reason: Patient not available) * 0912 ([facility] Unhold - Provider: Automatic Transfer Provider) benzocaine (HURRICAINE) 20 % mouth spray (CANCELED) As needed, Starting on Sun01/06/25 at 0814, Intra-op * 0814 (Given - Provider: Anais Stokes RN) benzonatate (TESSALON PERLES) capsule 100 mg 100 mg, oral, 3 times daily PRN, cough, Starting on Sun01/06/25 at 1328, Do not crush, chew or dissolve. hydrOXYzine (ATARAX) tablet 25 mg 25 mg, oral, Every 12 hours PRN, itching, Starting on Sun01/06/25 at 1328, Look-alike/sound-alike medication - verify indication for use. LORazepam (ATIVAN) injection 2 mg 2 mg, intravenous, Every 4 hours PRN, seizures, Starting on Sun01/05/25 at 0757, Look-alike/sound-alike medication - verify indication for use;IV use requires increased monitoring of HR,BP,Respirations and Pulse Oximetry;For IV-dilute with equal volume PF sod chloride * 0810 ([facility] Hold - Provider: Automatic Transfer Provider - Reason: Patient not available) * 0912 ([facility] Unhold - Provider: Automatic Transfer Provider) magnesium sulfate IVPB 2000 mg/50 mL in iso-osmotic water (40 mg/mL premix) 2,000 mg, intravenous, at 25 mL/hr, Administer over 120 Minutes, As needed, Magnesium level 1.7 to 1.9 mg/dL, or Ionized Magnesium level 0.45 to 0.5 mmol/L., Starting on Sun01/04/25 at 2323, Recheck magnesium level 4 hours after infusion complete. With each magnesium result continue the replacementorders as needed. * 0810 ([facility] Hold - Provider: Automatic Transfer Provider - Reason: Patient not available) * 0912 ([facility] Unhold - Provider: Automatic Transfer Provider) * 0403 (New Bag - Provider: Brittny Ruby, ARA) * 0603 (Stop Bag - Provider: Brittny Ruby RN) * 0704 (Stop Bag - Provider: Brittny Ruby RN) magnesium sulfate IVPB 4000 mg/100 mL in iso-osmotic water (40 mg/mL premix) 4,000 mg, intravenous, at 25 mL/hr, Administer over 240 Minutes, As needed, Magnesium level 1.6 mg/dL or less, or Ionized Magnesium level 0.44 mmol/L or less, Starting on 01/04/25 at 2323, Recheckmagnesium level 4 hours after infusion complete. With each magnesium result continue the replacement orders as needed. * 0810 ([facility] Hold - Provider: Automatic Transfer Provider - Reason: Patient not available) * 0912 ([facility] Unhold - Provider: Automatic Transfer Provider) melatonin (CIRCADIN) tablet 3 mg 3 mg, oral, Nightly PRN, sleep, Starting on Tu01/06/25 at 1329 ondansetron (PF) (ZOFRAN) injection 4 mg 4 mg, intravenous, Every 4 hours PRN, nausea, vomiting, Starting on 01/04/25 at 2323, Intravenous administration preferred to be given over 2-5 minutes. * 0810 ([facility] Hold - Provider: Automatic Transfer Provider - Reason: Patient not available) * 0912 ([facility] Unhold - Provider: Automatic Transfer Provider) potassium chloride (K-TAB,KLOR-CON) CR tablet 30-50 mEq(Linked Group 2) 30-50 mEq, oral, As needed, Potassium Supplementation, Starting on 01/04/25 at 2323, Progress tooral potassium replacement when patient tolerating oral intake. If dose administered, recheck potassium level 4 hours after last dose. For potassium level 3.4 to 3.8 mmol/L and GFR 30 mL/min or greater=30 mEq. For potassium level 3.1 to 3.3 mmol/L and GFR 30 mL/min or greater=40 mEq. For potassium level 3 mmol/L or less and GFR 30 mL/min or greater=50 mEq. Do not crush or chew. * 0810 ([facility] Hold - Provider: Automatic Transfer Provider - Reason: Patient not available) * 0912 ([facility] Unhold - Provider: Automatic Transfer Provider) * 1117 (See Alternative - Provider: Radha Fernandes, ARA) * 1226 (See Alternative - Provider: Radha Fernandes, ARA) * 1234 (See Alternative - Provider: Radha Fernandes RN) * 1334 (See Alternative - Provider: Radha Fernandes RN) * 1344 (See Alternative - Provider: Radha Fernandes, ARA) * 1444 (See Alternative - Provider: Radha Fernandes RN) potassium chloride (KAYCIEL) 20 mEq/15 mL solution 30-50 mEq(Linked Group 2) 30-50 mEq, oral, As needed, Potassium Supplementation, Starting on 01/04/25 at 2323, Progress tooral potassium replacement when patient tolerating oral intake. If dose administered, recheck potassium level 4 hours after last dose. For potassium level 3.4 to 3.8 mmol/L and GFR 30 mL/min or greater=30 mEq. For potassium level 3.1 to 3.3 mmol/L and GFR 30 mL/min or greater=40 mEq. For potassium level 3 mmol/L or less and GFR 30 mL/min or greater=50 mEq. Must dilute before use - Mix in 3-8 ounces of water or juice before administration When administering in feeding tube, flush before and after per policy and monitor potassium levels * 0810 (MAY Hold - Provider: Automatic Transfer Provider - Reason: Patient not available) * 0912 ([facility] Unhold - Provider: Automatic Transfer Provider) * 1117 (See Alternative - Provider: Radha Fernandes RN) * 1226 (See Alternative - Provider: Radha Fernandes RN) * 1234 (See Alternative - Provider: Radha Fernandes RN) * 1334 (See Alternative - Provider: Radha Fernandes RN) * 1344 (See Alternative - Provider: Radha Fernandes RN) * 1444 (See Alternative - Provider: Radha Fernandes, ARA) potassium chloride IVPB 10 mEq/100 mL in water (0.1 mEq/mL premix)(Linked Group 2) 10 mEq, intravenous, at 100 mL/hr, Administer over 60 Minutes, As needed, POTASSIUM REPLACEMENT, Starting on 01/04/25 at 2323, IV if unable to use oral/enteral with the current dosing strategies Potassium level 3 mmol/L or less administer Potassium Chloride 50 mEq Potassium level 3.1 to 3.3 mmol/L administer Potassium Chloride 40 mEq Potassium level 3.4 to 3.8 mmol/L administer Potassium Chloride 30 mEq Use central line when applicable. Recheck potassium level 1 hour after total IVPB infusion complete, With each potassium result continue the replacement orders as needed VESICANT (YELLOW) Infuse each 10 mEq over a minimum of 1 hour. * 0810 ([facility] Hold - Provider: Automatic Transfer Provider - Reason: Patient not available) * 0912 ([facility] Unhold - Provider: Automatic Transfer Provider) * 1117 (New Bag - Provider: Radha Fernandes, ARA) * 1226 (Stop Bag - Provider: Radha Fernandes, RN) * 1234 (New Bag - Provider: Radha Fernandes RN) * 1334 (Stop Bag - Provider: Radha Fernandes RN) * 1344 (New Bag - Provider: Radha Fernandes RN) * 1444 (Stop Bag - Provider: Radha Fernandes RN) sodium chloride 0.9 % flush 10 mL(Linked Group 1) 10 mL, intravenous, As needed, line care, Starting on 01/05/25 at 0813, PICC line. Administer 10mL to each lumen before and after each use. Administer 10 mL per lumen; 10 mL total (for single lumen flush) * 0810 ([facility] Hold - Provider: Automatic Transfer Provider - Reason: Patient not available) * 0912 ([facility] Unhold - Provider: Automatic Transfer Provider) sodium chloride 0.9 % flush 20 mL(Linked Group 1) 20 mL, intravenous, As needed, line care, Starting on Sun01/05/25 at 0813, PICC line. Administer 20mL to each lumen after lab draws, blood infusion, and meds known to precipitate. Administer 20 mL per lumen; 20 mL total (for single lumen flush) * 0810 ([facility] Hold - Provider: Automatic Transfer Provider - Reason: Patient not available) * 0912 ([facility] Unhold - Provider: Automatic Transfer Provider) sodium chloride 0.9 % flush 3 mL 3 mL, intravenous, As needed, line care, before and after each intermittent use, Starting on Sun01/04/25 at 1613 * 0810 ([facility] Hold - Provider: Automatic Transfer Provider - Reason: Patient not available) * 0912 ([facility] Unhold - Provider: Automatic Transfer Provider) Order Group 1: Consult PICC nurse - Midline (COMPLETED) Reason for consult? Insert Midline IV, Indication: Duration of therapy 14 days or less, Number of Lumen(s): 1 Lumen And sodium chloride 0.9 % flush 10 mLJump to med 10 mL, intravenous, Every 12 hours, First dose on Sun01/05/25 at 0815, PICC line. Administer 10 mL per lumen; 10 mL total (for single lumen flush) And sodium chloride 0.9 % flush 10 mLJump to med 10 mL, intravenous, As needed, line care, Starting on Sun01/05/25 at 0813, PICC line. Administer 10mL to each lumen before and after each use. Administer 10 mL per lumen; 10 mL total (for single lumen flush) And sodium chloride 0.9 % flush 20 mLJump to med 20 mL, intravenous, As needed, line care, Starting on Sun01/05/25 at 0813, PICC line. Administer 20mL to each lumen after lab draws, blood infusion, and meds known to precipitate. Administer 20 mL per lumen; 20 mL total (for single lumen flush) Group 2: potassium chloride (K-TAB,KLOR-CON) CR tablet 30-50 mEqJump to med 30-50 mEq, oral, As needed, Potassium Supplementation, Starting on 01/04/25 at 2323, Progress tooral potassium replacement when patient tolerating oral intake. If dose administered, recheck potassium level 4 hours after last dose. For potassium level 3.4 to 3.8 mmol/L and GFR 30 mL/min or greater=30 mEq. For potassium level 3.1 to 3.3 mmol/L and GFR 30 mL/min or greater=40 mEq. For potassium level 3 mmol/L or less and GFR 30 mL/min or greater=50 mEq. Do not crush or chew. Or potassium chloride (KAYCIEL) 20 mEq/15 mL solution 30-50 mEqJump to med 30-50 mEq, oral, As needed, Potassium Supplementation, Starting on Sun01/04/25 at 2323, Progress tooral potassium replacement when patient tolerating oral intake. If dose administered, recheck potassium level 4 hours after last dose. For potassium level 3.4 to 3.8 mmol/L and GFR 30 mL/min or greater=30 mEq. For potassium level 3.1 to 3.3 mmol/L and GFR 30 mL/min or greater=40 mEq. For potassium level 3 mmol/L or less and GFR 30 mL/min or greater=50 mEq. Must dilute before use - Mix in 3-8 ounces of water or juice before administration When administering in feeding tube, flush before and after per policy and monitor potassium levels Or potassium chloride IVPB 10 mEq/100 mL in water (0.1 mEq/mL premix)Jump to med 10 mEq, intravenous, at 100 mL/hr, Administer over 60 Minutes, As needed, POTASSIUM REPLACEMENT, Starting on 01/04/25 at 2323, IV if unable to use oral/enteral with the current dosing strategies Potassium level 3 mmol/L or less administer Potassium Chloride 50 mEq Potassium level 3.1 to 3.3 mmol/L administer Potassium Chloride 40 mEq Potassium level 3.4 to 3.8 mmol/L administer Potassium Chloride 30 mEq Use central line when applicable. Recheck potassium level 1 hour after total IVPB infusion complete, With each potassium result continue the replacement orders as needed VESICANT (YELLOW) Infuse each 10 mEq over a minimum of 1 hour. Source Comments (unrecognize d section and content) In the event this informatio n is protected by the Federal Confidentiality of Alcohol and Drug Abuse Patient Records regulations: The Federal rules restrict any use of the information to criminally investigate or prosecute any alcohol or drug abuse patient.[facility] SystemIn the event this information is protected by the Federal Confidentiality of Alcohol and Drug Abuse Patient Records regulations: The Federal rules restrict any use of the information to criminally investigate or prosecute any alcohol or drug abuse patient.[facility] System[facility] the event this information is protected by the Federal Confidentiality of Alcohol and Drug Abuse Patient Records regulations: The Federal rules restrict any use of the information to criminally investigate or prosecute any alcohol or drug abuse patient.[facility] FOR RECORDS PERTAINING TO PATIENTS WHO ARE [...] BE BASED ON THE PRIMARY CLINICAL RECORDS. [facility]. provides no warranty or guarantee of the accuracy or completeness of information in this document.
== END 2025-01-18 13:26 | disposition home or self-care (01) ==
PROVIDERS: Emergency Provider Emergency Medicine; PCP Family Medicine
DX: K52.9 Noninfective gastroenteritis and colitis, unspecified (principal); N39.0 Urinary tract infection, site not specified
CPT/HCPCS: 36415; 74176; 80053; 81001; 83605; 85025; 87045; 87046; 87086; 87088; 87186; 87427; 87493; 96361; 96365; 96375; 99285; G0328; J0696; J2405; Q9966